=== PATIENT | female | born 1970 | race American Indian/Alaskan Native ===

== ENCOUNTER 2018-12-28 14:52 | Inpatient (IN) | payer OTHER ==
--- NOTE | 2018-12-28 15:16 | Emergency Department Report ---
Blank Doc - Documentation Documentation: This is a 48-year-old female that presents with chest pain and SOB. This initial assessment/diagnostic orders/clinical plan/treatment(s) is/are subject to change based on patient's health status, clinical progression and re- assessment by fellow clinical providers in the ED. Further treatment and workup at subsequent clinical providers discretion. Patient/guardians urged not to elope from the ED as their condition may be serious if not clinically assessed and managed. Initial orders include: 1- Patient sent to [facility] for further evaluation and treatment 2- labs 3- EKG 4- CXR
[2018-12-28 16:28] LABS: Basophils # (Auto) 0.1 K/mm3 (0.0-0.1); Basophils % (Auto) 1.1 % (0.0-1.8); Eosinophils # (Auto) 0.3 K/mm3 (0.0-0.4); Eosinophils % (Auto) 3.2 % (0.0-4.3); Hematocrit 42.7 % (30.3-42.9); Hemoglobin 14.3 gm/dl (10.1-14.3); Lymphocytes # (Auto) 1.9 K/mm3 (1.2-5.4); Lymphocytes % (Auto) 22.5 % (13.4-35.0); Mean Corpuscular HGB Conc 34 % (30-34); Mean Corpuscular Volume 90 fl (79-97); Monocytes # (Auto) 0.6 K/mm3 (0.0-0.8); Monocytes % (Auto) 6.6 % (0.0-7.3); Platelet Count 251 K/mm3 (140-440); Red Blood Count 4.72 M/mm3 (3.65-5.03); Red Cell Distribution Width 13.9 % (13.2-15.2)
[2018-12-28 16:40] LABS: INR 0.84 (0.87-1.13)
[2018-12-28 16:52] LABS: BUN/Creatinine Ratio 15; Blood Urea Nitrogen 12 mg/dL (7-17); Hemolysis Index 25
--- NOTE | 2018-12-28 17:21 | XRay Report ---
PROCEDURE: XR CHEST ROUTINE 2V TECHNIQUE: PA and lateral chest HISTORY: Chest Pain COMPARISONS: Chest x-ray July 10, 2018 FINDINGS: Trachea midline. Heart size normal No pneumothorax. No sizable effusion. No acute airspace disease No acute bony abnormality IMPRESSION: No active pulmonary disease. This document is electronically signed by Rafal Daniel MD., Dec 28 2018 05:18:44 PM ET
--- NOTE | 2018-12-28 17:26 | Emergency Department Report ---
ED Chest Pain HPI - General Chief Complaint: Chest Pain Stated Complaint: CHEST PAIN Time Seen by Provider: 12/28/18 15:15 Source: patient Mode of arrival: Ambulatory Limitations: No Limitations - History of Present Illness Initial Comments: She is a 48-year-old female that presents with complaints of chest pain which started 15 minutes prior to arrival. Patient states that she also had shortness of breath and dyspnea on exertion. Patient states she's had a history of PACs and PVCs as well as CHF. Patient states she sees cardiology and electrophy siology. Patient states her shortness of breath has resolved. Patient states shortness breath is better with rest and worse with exertion. Patient states her chest pain as a 7 out of 10. Patient states her chest pain is in the center of her chest and nonradiating. Patient states her chest pain is better with rest and worse with exertion. MD Complaint: chest pain -: Sudden Onset: during rest Pain Location: substernal Pain Radiation: none Severity: moderate, severe Severity scale (0 -10): 7 Quality: heaviness, pressure Consistency: constant Improves With: rest Worsens With: exertion re: dyspnea. denies: nausea, vomting, diaphoresis, sense of impending doom Other Symptoms: denies: cough, fever, syncope, rash, acid taste in mouth, leg swelling, palpitations, burping Treatments Prior to Arrival: none Aspirin use within the Past 7 Days: (1) Yes - Related Data On Oral Contraceptives: No Home Medications Medication Instructions Recorded Confirmed Last Taken Atenolol [Tenormin] 25 mg PO DAILY 12/28/18 12/28/18 Unknown Cholecalciferol (Vitamin D3) 50,000 unit PO QWEEK 12/28/18 12/28/18 Unknown [Decara 50,000 unit] Montelukast [Singulair] 10 mg PO DAILY 12/28/18 12/28/18 Unknown Potassium Chloride [K-Dur] 20 meq PO DAILY 12/28/18 12/28/18 Unknown busPIRone [Buspar] 10 mg PO BID 12/28/18 12/28/18 Unknown Previous Rx's Medication Instructions Recorded Last Taken Type ALBUTEROL Inhaler(NF) [VENTOLIN 1 puff IH Q4HR PRN #1 inha 07/10/18 Unknown Rx Inhaler(NF)] Allergies Allergy/AdvReac Type Severity Reaction Status Date / Time bee venom protein (honey bee) Allergy Shortness Verified 07/10/18 16:39 of Breath iv contrast Allergy Hives Uncoded 07/10/18 16:36 Heart Score - HEART Score History: Slightly suspicious EKG: Non-specific Age: 45-65 Risk factors: No known risk factors Troponin: < normal limit HEART Score: 2 ED Review of Systems ROS: Stated complaint: CHEST PAIN Other details as noted in HPI Constitutional: denies: chills, fever Eyes: denies: eye pain, eye discharge, vision change ENT: denies: ear pain, throat pain Respiratory: shortness of breath, SOB with exertion, SOB at rest. denies: cough, wheezing Cardiovascular: chest pain, palpitations Endocrine: no symptoms reported Gastrointestinal: denies: abdominal pain, nausea, diarrhea Genitourinary: denies: urgency, dysuria, discharge Musculoskeletal: denies: back pain, joint swelling, arthralgia Skin: denies: rash, lesions Neurological: denies: headache, weakness, paresthesias Psychiatric: denies: anxiety, depression Hematological/Lymphatic: denies: easy bleeding, easy bruising ED Past Medical Hx - Past Medical History Previous Medical History?: Yes Hx Hypertension: Yes Hx Congestive Heart Failure: Yes Hx Asthma: Yes Additional medical history: Autoimmune disorder - Surgical History Past Surgical History?: Yes Additional Surgical History: tubal ligation. endometrial ablasion - Social History Smoking Status: Never Smoker Substance Use Type: Alcohol - Medications Home Medications: Home Medications Medication Instructions Recorded Confirmed Last Taken Type ALBUTEROL Inhaler(NF) [VENTOLIN 1 puff IH Q4HR PRN #1 inha 07/10/18 12/28/18 Unknown Rx Inhaler(NF)] Atenolol [Tenormin] 25 mg PO DAILY 12/28/18 12/28/18 Unknown History Cholecalciferol (Vitamin D3) 50,000 unit PO QWEEK 12/28/18 12/28/18 Unknown History [Decara 50,000 unit] Montelukast [Singulair] 10 mg PO DAILY 12/28/18 12/28/18 Unknown History Potassium Chloride [K-Dur] 20 meq PO DAILY 12/28/18 12/28/18 Unknown History busPIRone [Buspar] 10 mg PO BID 12/28/18 12/28/18 Unknown History ED Physical Exam - General Limitations: No Limitations General appearance: alert, in no apparent distress - Head Head exam: Present: atraumatic, normocephalic - Eye Eye exam: Present: normal appearance, PERRL Pupils: Present: normal accommodation - ENT ENT exam: Present: mucous membranes moist - Neck Neck exam: Present: normal inspection - Respiratory Respiratory exam: Present: normal lung sounds bilaterally. Absent: respiratory distress, wheezes, rales, chest wall tenderness - Cardiovascular Cardiovascular Exam: Present: regular rate, normal rhythm. Absent: systolic murmur, diastolic murmur, rubs, gallop - GI/Abdominal GI/Abdominal exam: Present: soft, normal bowel sounds - Rectal Rectal exam: Present: deferred - Extremities Exam Extremities exam: Present: normal inspection - Back Exam Back exam: Present: normal inspection - Neurological Exam Neurological exam: Present: alert, oriented X3 - Psychiatric Psychiatric exam: Present: normal affect, normal mood - Skin Skin exam: Present: warm, dry, intact, normal color. Absent: rash ED Course Vital Signs 12/28/18 12/28/18 12/28/18 15:16 17:16 17:30 Temperature 97.8 F Pulse Rate 81 54 L 52 L Respiratory 20 14 Rate Blood Pressure 126/80 126/57 Blood Pressure [Left] O2 Sat by Pulse 95 95 Oximetry 12/28/18 12/28/18 12/28/18 17:45 18:00 18:17 Temperature Pulse Rate 54 L 51 L 48 L Respiratory 13 12 12 Rate Blood Pressure 123/81 123/81 Blood Pressure [Left] O2 Sat by Pulse 97 96 98 Oximetry 12/28/18 12/28/18 12/28/18 18:30 18:45 19:00 Temperature Pulse Rate 50 L 51 L 49 L Respiratory 12 11 L 13 Rate Blood Pressure 132/78 138/88 129/68 Blood Pressure [Left] O2 Sat by Pulse 98 97 97 Oximetry 12/28/18 12/28/18 12/28/18 19:15 19:30 19:41 Temperature 98.3 F Pulse Rate 53 L 48 L 65 Respiratory 14 13 25 H Rate Blood Pressure 121/73 122/77 122/77 Blood Pressure 140/92 [Left] O2 Sat by Pulse 98 96 100 Oximetry 12/28/18 12/28/18 12/28/18 19:51 20:00 20:11 Temperature Pulse Rate 57 L 59 L 56 L Respiratory 17 18 16 Rate Blood Pressure 140/92 137/95 137/95 Blood Pressure [Left] O2 Sat by Pulse 99 97 97 Oximetry 12/28/18 12/28/18 20:23 20:27 Temperature Pulse Rate 54 L Respiratory Rate Blood Pressure 134/73 134/77 Blood Pressure [Left] O2 Sat by Pulse Oximetry - Reevaluation(s) Reevaluation #1: Discussed all result of patient. Discussed plan of care with patient. Patient admitted to the hospitalist service. 12/28/18 17:33 - Consultations Consultation #1: Hospitalist consulted for admission. Hospitalist to admit patient. Hospitalist to assume care patient. 12/28/18 17:33 GRAHAM score - Graham Score Age > 65: (0) No Aspirin use within the Past 7 Days: (1) Yes 3 or more CAD Risk Factors: (0) No 2 or more Angina events in past 24 hrs: (0) No Known CAD with more than 50% Stenosis: (0) No Elevated Cardiac Markers: (0) No ST Deviation Greater than 0.5mm: (0) No GRAHAM Score: 1 ED Medical Decision Making - Lab Data Result diagrams: 12/28/18 15:56 12/28/18 15:56 - EKG Data -: EKG Interpreted by Me EKG shows normal: sinus rhythm, axis, intervals, QRS complexes, ST-T waves Rate: normal - Radiology Data Radiology results: report reviewed, image reviewed interpreted by me: Negative chest PROCEDURE: XR CHEST ROUTINE 2V TECHNIQUE: PA and lateral chest HISTORY: Chest Pain COMPARISONS: Chest x-ray July 10, 2018 FINDINGS: Trachea midline. Heart size normal No pneumothorax. No sizable effusion. No acute airspace disease No acute bony abnormality IMPRESSION: No active pulmonary disease. - Medical Decision Making Patient is a 48-year-old female that presents emergency room with chest pain shortness of breath. Patient initial cardiac workup negative. Chest x-ray negative. Patient will be admitted to the hospitalist service for further evaluation and treatment and rule out ACS. Patient will most likely require a cardiology consult - Differential Diagnosis ACS. CP. sob,. hale. chf Critical care attestation.: If time is entered above; I have spent that time in minutes in the direct care of this critically ill patient, excluding procedure time. ED Disposition Clinical Impression: SOB (shortness of breath), HALE (dyspnea on exertion), Heart palpitations Chest pain Qualifiers: Chest pain type: unspecified Qualified Code(s): R07.9 - Chest pain, unspecified Disposition: 09 OP ADMIT IP TO THIS HOSP Is pt being admited?: Yes Does the pt Need Aspirin: No Condition: Fair Time of Disposition: 17:35
--- NOTE | 2018-12-28 17:33 | History and Physical Report ---
History of Present Illness Chief complaint: My chest hurts History of present illness: 48 YO Female with SLE/Sjogrens Syndrome/Fibromyalgia, Obesity, Asthma, CHF, Cardiac Arrythmias(PAC/PVC) presents to ED for evaluation. Pt states that she has experienced chest pain and shortness of breath over the past 2 days with w orsening symptoms over the past 1 day. Pt states that her pain is 7/10, substernal, constant, worsened with exertion, relieved with rest, crushing in nature, nonradiating, associated with shortness of breath. Pt acknowledges decreased exercise tolerance, dypsnea on exertion, as well as leg swelling. Pt transported to [facility] via private vehicle. Pt seen and evaluated in ED and found to have Angina, as well as symptoms consistent with Diastolic CHF. Pt admitted to telemetry. Cardiology team consulted in ED. Past History Past Medical History: arrhythmia, heart failure, other (Obesity, Asthma) Past Surgical History: Other (Tubal ligation) Social history: single. denies: smoking, alcohol abuse, prescription drug abuse Family history: hypertension Medications and Allergies Allergies Allergy/AdvReac Type Severity Reaction Status Date / Time bee venom protein (honey bee) Allergy Shortness Verified 07/10/18 16:39 of Breath iv contrast Allergy Hives Uncoded 07/10/18 16:36 Home Medications Medication Instructions Recorded Confirmed Last Taken Type ALBUTEROL Inhaler(NF) [VENTOLIN 1 puff IH Q4HR PRN #1 inha 07/10/18 12/28/18 Unknown Rx Inhaler(NF)] Atenolol [Tenormin] 25 mg PO DAILY 12/28/18 12/28/18 Unknown History Cholecalciferol (Vitamin D3) 50,000 unit PO QWEEK 12/28/18 12/28/18 Unknown History [Decara 50,000 unit] Montelukast [Singulair] 10 mg PO DAILY 12/28/18 12/28/18 Unknown History Potassium Chloride [K-Dur] 20 meq PO DAILY 12/28/18 12/28/18 Unknown History busPIRone [Buspar] 10 mg PO BID 12/28/18 12/28/18 Unknown History Review of Systems Constitutional: no weight loss, no weight gain, no fever, no chills Ears, nose, mouth and throat: no ear pain, no ear discharge, no tinnitis, no decreased hearing, no nose pain Breasts: no change in shape, no swelling, no mass Cardiovascular: chest pain, edema, shortness of breath, dyspnea on exertion, decreased exercise tolerance, no orthopnea, no paroxysmal nocturnal dyspnea Respiratory: no cough, no cough with sputum, no excessive sputum, no hemoptysis Gastrointestinal: no nausea, no vomiting, no diarrhea, no constipation Genitourinary Female: no pelvic pain, no flank pain, no menorrhagia, no dysuria, no urinary frequency, no urgency Rectal: no pain, no incontinence, no bleeding Musculoskeletal: no neck stiffness, no neck pain, no shooting arm pain, no arm numbness/tingling, no low back pain Integumentary: no rash, no pruritis, no redness, no sores, no wounds Neurological: no transient paralysis, no paralysis, no weakness, no parathesias, no numbness, no tingling, no seizures Psychiatric: no anxiety, no memory loss, no change in sleep habits, no sleep disturbances, no insomnia, no hypersomnia, no change in appetite Endocrine: no cold intolerance, no polyphagia, no excessive thirst Hematologic/Lymphatic: no easy bruising, no easy bleeding, no lymphadenopathy, no lymphedema Allergic/Immunologic: no urticaria, no allergic rhinitis, no wheezing, no persistent infections, no angioedema Exam - Constitutional Vitals: Temp Pulse Resp BP Pulse Ox 97.8 F 81 20 126/80 95 12/28/18 15:16 12/28/18 15:16 12/28/18 15:16 12/28/18 15:16 12/28/18 15:16 General appearance: Present: mild distress - EENT Eyes: Present: PERRL ENT: hearing intact, clear oral mucosa - Neck Neck: Present: supple, normal ROM - Respiratory Respiratory effort: normal Respiratory: bilateral: CTA - Cardiovascular Heart Sounds: Present: S1 & S2. Absent: rub, click - Extremities Extremities: pulses symmetrical Extremity abnormal: edema Peripheral Pulses: within normal limits - Abdominal General gastrointestinal: Present: soft, non-tender, non-distended, normal bowel sounds Female genitourinary: Present: normal - Integumentary Integumentary: Present: clear, warm, dry - Musculoskeletal Musculoskeletal: gait normal, strength equal bilaterally - Psychiatric Psychiatric: appropriate mood/affect, intact judgment & insight - Neurologic Neurologic: CNII-XII intact, moves all extremities Results - Labs CBC & Chem 7: 12/28/18 15:56 12/28/18 15:56 Labs: Abnormal lab results 12/28/18 12/28/18 Range/Units 15:56 15:56 PT 12.0 L (12.2-14.9) Sec. INR 0.84 L (0.87-1.13) Glucose 105 H (65-100) mg/dL Assessment and Plan - Patient Problems (1) CHF (congestive heart failure) Current Visit: Yes Status: Suspected Qualifiers: Heart failure type: diastolic Heart failure chronicity: acute Qualified Code(s): I50.31 - Acute diastolic (congestive) heart failure Plan to address problem: CHF Protocol: Admit to telemetry, BNP, Strict I/O, daily weight, monitor uop q shift, chest x ray, cardiology consulted in ED, Echo, supplemental oxygen, afterload reduction, blood pressure control. (2) Angina at rest Current Visit: Yes Status: Acute Plan to address problem: Admit to telemetry: serial cardiac enzymes, ekg, telemetry, stress test, cardiology consulted in ED (3) Obesity hypoventilation syndrome Current Visit: Yes Status: Acute Plan to address problem: supplemental oxygen, NIPPV as clinically indicated, increased physical activity at discharge, balanced diet, CTA chest, D dimer (4) Autoimmune disease Current Visit: Yes Status: Acute Plan to address problem: Restart plaquenil, outpatient rheumatology F/U care. (5) DVT prophylaxis Current Visit: Yes Status: Acute
[2018-12-28] MEDS ORDERED: BABY ASPIRIN PO STA (17:51)
[2018-12-28] MEDS ORDERED: NITROSTAT SL PRN (17:51)
[2018-12-28] MEDS ORDERED: SODIUM CHLORIDE FLUSH SYRINGE 10 ML IV PRN ×2 (17:51)
[2018-12-28] MEDS ORDERED: ZOFRAN IV PRN (17:51)
[2018-12-28] MEDS ORDERED: TYLENOL PO PRN (17:51)
[2018-12-28] MEDS ORDERED: PROVENTIL IH PRN (17:51)
[2018-12-28] MEDS ORDERED: TESSALON PERLES PO PRN (17:55)
[2018-12-28] MEDS ORDERED: MORPHINE ONE (18:36)
[2018-12-28] MEDS ORDERED: ZOFRAN ONE (18:36)
[2018-12-28] MEDS: MORPHINE IV PRN (18:40)
[2018-12-28 19:06] LABS: Chol/HDL Ratio 4.04 %; Free T4 (Free Thyroxine) 0.97 ng/dL (0.76-1.46)
[2018-12-28] MEDS ORDERED: BABY ASPIRIN ONE (19:12)
[2018-12-28] MEDS ORDERED: NITROSTAT SL ONE (20:26)
[2018-12-28] MEDS: SODIUM CHLORIDE FLUSH SYRINGE 10 ML IV SCH (22:31)
[2018-12-28] MEDS: PEPCID PO SCH (22:31)
[2018-12-28] MEDS: BUSPAR PO SCH (22:31)
[2018-12-28] MEDS: PLAQUENIL PO SCH (22:31)
[2018-12-28] MEDS ORDERED: BENADRYL PO NR (23:45)
[2018-12-28] MEDS ORDERED: DELTASONE PO ONE (23:51)
[2018-12-29] MEDS: AMBIEN PO PRN ×2 (01:00→21:46)
[2018-12-29] MEDS ORDERED: PEPCID PO NR (06:00)
[2018-12-29] MEDS ORDERED: BENADRYL PO NR (07:00)
[2018-12-29] MEDS ORDERED: DELTASONE PO ONE ×2 (07:00→13:00)
[2018-12-29] MEDS ORDERED: PEPCID PO ONE ×2 (07:00→13:00)
[2018-12-29 07:04] LABS: Amphetamine Screen,Urine PRESUMPTIVE NEGATIVE; Benzodiazepines Screen,Urine PRESUMPTIVE NEGATIVE; Methadone Screen,Urine PRESUMPTIVE NEGATIVE
[2018-12-29 07:29] LABS: Cannabinoid Screen,Urine PRESUMPTIVE POSITIVE; Cocaine Screen,Urine PRESUMPTIVE POSITIVE; Opiate Screen,Urine PRESUMPTIVE POSITIVE
[2018-12-29] MEDS ORDERED: LEXISCAN IV ONE ×2 (09:57→10:04)
[2018-12-29] MEDS ORDERED: DELTASONE PO SCH ×2 (10:00→14:37)
[2018-12-29] MEDS ORDERED: VITAMIN D2 PO SCH (10:00)
[2018-12-29] MEDS: PEPCID PO SCH ×2 (10:00→21:46)
[2018-12-29] MEDS ORDERED: K-DUR PO SCH ×2 (10:00→14:00)
[2018-12-29] MEDS ORDERED: BENADRYL PO ONE (13:00)
--- NOTE | 2018-12-29 13:02 | Consultation ---
History of Present Illness Consult date: 12/29/18 Consult reason: chest pain History of present illness: The patient is a 48-year-old woman admitted with chest pain and shortness of breath. Chest pain is poorly characterized, nonexertional with no associated symptoms. On admission, ECG was normal sinus rhythm, normal ECG. Cardiac isoenzymes were negative. Today, patient underwent an exercise thallium stress test ordered by the medical service. She exercised for 6 minutes of Mann protocol, completing stage II and achieved 7 METS. There was no chest pain, no ST changes, and thallium perfusion images were normal. Past History Past Medical History: arrhythmia, other (Obesity, Asthma) Past Surgical History: Other (Tubal ligation) Social history: single. denies: smoking, alcohol abuse, prescription drug abuse Family history: hypertension Medications and Allergies Allergies Allergy/AdvReac Type Severity Reaction Status Date / Time bee venom protein (honey bee) Allergy Shortness Verified 07/10/18 16:39 of Breath iv contrast Allergy Hives Uncoded 07/10/18 16:36 Home Medications Medication Instructions Recorded Confirmed Last Taken Type ALBUTEROL Inhaler(NF) [VENTOLIN 1 puff IH Q4HR PRN #1 inha 07/10/18 12/28/18 Unknown Rx Inhaler(NF)] Atenolol [Tenormin] 25 mg PO DAILY 12/28/18 12/28/18 Unknown History Cholecalciferol (Vitamin D3) 50,000 unit PO QWEEK 12/28/18 12/28/18 Unknown History [Decara 50,000 unit] Montelukast [Singulair] 10 mg PO DAILY 12/28/18 12/28/18 Unknown History Potassium Chloride [K-Dur] 20 meq PO DAILY 12/28/18 12/28/18 Unknown History busPIRone [Buspar] 10 mg PO BID 12/28/18 12/28/18 Unknown History Active Meds: Active Medications Acetaminophen (Tylenol) 650 mg PO Q4H PRN PRN Reason: Pain MILD(1-3)/Fever >100.5/WILLETT Albuterol (Proventil) 2.5 mg IH Q4HRT PRN PRN Reason: Shortness Of Breath Atorvastatin Calcium (Lipitor) 40 mg PO QHS ROMMEL Last Admin: 12/28/18 22:31 Dose: 40 mg Documented by: Benzonatate (Tessalon Perles) 100 mg PO Q8HR PRN PRN Reason: Cough Buspirone HCl (Buspar) 10 mg PO BID [facility] Last Admin: 12/28/18 22:31 Dose: 10 mg Documented by: Diphenhydramine HCl (Benadryl) 50 mg PO ONCE ONE Stop: 12/29/18 13:01 Famotidine (Pepcid) 20 mg PO BID [facility] Last Admin: 12/28/18 22:31 Dose: 20 mg Documented by: Famotidine (Pepcid) 20 mg PO ONCE ONE Stop: 12/29/18 13:01 Hydroxychloroquine Sulfate (Plaquenil) 200 mg PO QDAY [facility] Last Admin: 12/28/18 22:31 Dose: 200 mg Documented by: Miscellaneous Medication (Cholecalciferol (Vitamin D3) [Decara 50,000 Unit]) 50,000 unit PO QWEEK [facility] Montelukast Sodium (Singulair) 10 mg PO DAILY [facility] Morphine Sulfate (Morphine) 2 mg IV Q4H PRN PRN Reason: Pain, Moderate (4-6) Last Admin: 12/28/18 18:40 Dose: 2 mg Documented by: Nitroglycerin (Nitrostat) 0.4 mg SL Q5M PRN PRN Reason: Chest Pain Last Admin: 12/28/18 20:27 Dose: 0.4 mg Documented by: Ondansetron HCl (Zofran) 4 mg IV Q8H PRN PRN Reason: Nausea And Vomiting Last Admin: 12/28/18 18:40 Dose: 4 mg Documented by: Potassium Chloride (K-Dur) 20 meq PO DAILY [facility] Prednisone (Deltasone) 50 mg PO DAILY [facility] Prednisone (Deltasone) 50 mg PO ONCE ONE Stop: 12/29/18 13:01 Sodium Chloride (Sodium Chloride Flush Syringe 10 Ml) 10 ml IV BID [facility] Last Admin: 12/28/18 22:31 Dose: 10 ml Documented by: Sodium Chloride (Sodium Chloride Flush Syringe 10 Ml) 10 ml IV PRN PRN PRN Reason: LINE FLUSH Zolpidem Tartrate (Ambien) 5 mg PO QHS PRN PRN Reason: Sleep Last Admin: 12/29/18 01:00 Dose: 5 mg Documented by: Review of Systems Cardiovascular: chest pain, shortness of breath, no orthopnea, no palpitations, no rapid/irregular heart beat, no edema, no syncope, no lightheadedness Physical Examination Vital Signs Temp Pulse Resp BP Pulse Ox 97.8 F 81 20 126/80 95 12/28/18 15:16 12/28/18 15:16 12/28/18 15:16 12/28/18 15:16 12/28/18 15:16 General appearance: no acute distress HEENT: Positive: PERRL Neck: Positive: neck supple Cardiac: Positive: Reg Rate and Rhythm Lungs: Positive: clear to auscultation Neuro: Positive: Grossly Intact Abdomen: Positive: Soft Female genitourinary: deferred Skin: Positive: Clear Extremities: Absent: edema Results 12/28/18 15:56 12/28/18 15:56 Coagulation 12/28/18 Range/Units 15:56 PT 12.0 L (12.2-14.9) Sec. INR 0.84 L (0.87-1.13) APTT 28.0 (24.2-36.6) Sec. Lipids 12/28/18 Range/Units 18:13 Triglycerides 232 H (2-149) mg/dL Cholesterol 198 (50-199) mg/dL HDL Cholesterol 49 (40-59) mg/dL Cholesterol/HDL Ratio 4.04 % CBC 12/28/18 Range/Units 15:56 WBC 8.6 (4.5-11.0) K/mm3 RBC 4.72 (3.65-5.03) M/mm3 Hgb 14.3 (10.1-14.3) gm/dl Hct 42.7 (30.3-42.9) % Plt Count 251 (140-440) K/mm3 Lymph # 1.9 (1.2-5.4) K/mm3 [place] # 0.6 (0.0-0.8) K/mm3 Eos # 0.3 (0.0-0.4) K/mm3 Baso # 0.1 (0.0-0.1) K/mm3 Comprehensive Metabolic Panel 12/28/18 Range/Units 15:56 Sodium 141 (137-145) mmol/L Potassium 4.9 (3.6-5.0) mmol/L Chloride 106.3 (98-107) mmol/L Carbon Dioxide 24 (22-30) mmol/L BUN 12 (7-17) mg/dL Creatinine 0.8 (0.7-1.2) mg/dL Glucose 105 H (65-100) mg/dL Calcium 9.0 (8.4-10.2) mg/dL EKG interpretations - Telemetry EKG Rhythm: Sinus Rhythm Assessment and Plan - Patient Problems (1) Atypical chest pain Current Visit: Yes Status: Acute Plan to address problem: Chest pain is atypical, serial ECGs and normal, cardiac enzymes and normal, and exercise thallium stress test is normal. No further cardiac ischemic workup is indicated.
[2018-12-29] MEDS: BUSPAR PO SCH ×2 (14:00→21:46)
[2018-12-29] MEDS: PLAQUENIL PO SCH (14:00)
[2018-12-29] MEDS: SINGULAIR PO SCH (14:00)
[2018-12-29] MEDS: SODIUM CHLORIDE FLUSH SYRINGE 10 ML IV SCH ×2 (14:00→21:47)
--- NOTE | 2018-12-29 14:35 | Progress Note ---
Assessment and Plan Assessment and plan: 48 YO Female with SLE/Sjogrens Syndrome/Fibromyalgia, Obesity, Asthma, CHF, Cardiac Arrythmias(PAC/PVC) presents to ED for evaluation. Pt states that she has experienced chest pain and shortness of breath over the past 2 days with worsening symptoms over the past 1 day. Pt states that her pain is 7/10, s ubsternal, constant, worsened with exertion, relieved with rest, crushing in nature, nonradiating, associated with shortness of breath. Pt acknowledges decreased exercise tolerance, dypsnea on exertion, as well as leg swelling. Pt transported to [facility] via private vehicle. Pt seen and evaluated in ED and found to have Angina, as well as symptoms consistent with Diastolic CHF. Pt admitted to telemetry. Cardiology team consulted in ED. Patient underwent a stress test which showed no evidence of reversible disease thallium perfusion images were read as normal. Patient is still pending CTA and ultrasound Doppler. Echocardiogram shows an EF of 60-65%. - Patient Problems Atypical chest pain likely secondary to underlying COPD Shortness of breath likely secondary to underlying COPD Stable congestive heart failure-presumed diastolic Obesity Substance abuse Dyslipidemia Autoimmune disease Plan of care Stress test revealed normal as noted above Patient still with underlying and intermittent chest discomfort we'll await CTA and Doppler of lower extremity Counseling provided to the patient the need to refrain from substance abuse she verbalizes understanding Continue otherwise current management plan Continue nebulizer treatments and steroid treatment and taper . Anticipated discharge in a.m. Continue plaquenil being taken at home and continue follow-up with sewer tapper. DVT and GI prophylaxis History Interval history: Patient seen and Examined This Morning in No Acute Distress Going for Stress Test Today Also Still Pending a CTA to Rule Out Pulmonary Embolism and Also Doppler of Lower Extremities.. Hospitalist Physical - Physical exam Narrative exam: VITAL SIGNS: Reviewed. GENERAL: The patient appeared well nourished and normally developed, Vital signs as documented. HEAD: No signs of head trauma. EYES: Pupils are equal. Extraocular motions intact. EARS: Hearing grossly intact. MOUTH: Oropharynx is normal. NECK: No adenopathy, no JVD. CHEST: Chest with clear breath sounds bilaterally. No wheezes, rales, or rhonchi. CARDIAC: Regular rate and rhythm. S1 and S2, without murmurs, gallops, or rubs. VASCULAR: No Edema. Peripheral pulses normal and equal in all extremities. ABDOMEN: Soft, non tender and non distended. No rebound or guarding, and no masses palpated. Bowel Sounds normal. MUSCULOSKELETAL: Good range of motion of all major joints. Extremities without clubbing, cyanosis or edema. NEUROLOGIC EXAM: Alert and oriented x 3 No focal sensory or strength deficits. Speech normal. Follows commands. PSYCHIATRIC: Mood normal. SKIN: No rash or lesions. - Constitutional Vitals: Temp Pulse Resp BP Pulse Ox 97.8 F 62 18 125/69 93 12/29/18 12:48 12/29/18 12:48 12/29/18 12:48 12/29/18 12:48 12/29/18 12:48 General appearance: Present: no acute distress Results - Labs CBC & Chem 7: 12/28/18 15:56 12/28/18 15:56 Labs: Laboratory Last Values WBC 8.6 K/mm3 (4.5-11.0) 12/28/18 15:56 RBC 4.72 M/mm3 (3.65-5.03) 12/28/18 15:56 Hgb 14.3 gm/dl (10.1-14.3) 12/28/18 15:56 Hct 42.7 % (30.3-42.9) 12/28/18 15:56 MCV 90 fl (79-97) 12/28/18 15:56 MCH 30 pg (28-32) 12/28/18 15:56 MCHC 34 % (30-34) 12/28/18 15:56 RDW 13.9 % (13.2-15.2) 12/28/18 15:56 Plt Count 251 K/mm3 (140-440) 12/28/18 15:56 Lymph % (Auto) 22.5 % (13.4-35.0) 12/28/18 15:56 Tillman % (Auto) 6.6 % (0.0-7.3) 12/28/18 15:56 Eos % (Auto) 3.2 % (0.0-4.3) 12/28/18 15:56 Baso % (Auto) 1.1 % (0.0-1.8) 12/28/18 15:56 Lymph # 1.9 K/mm3 (1.2-5.4) 12/28/18 15:56 Tillman # 0.6 K/mm3 (0.0-0.8) 12/28/18 15:56 Eos # 0.3 K/mm3 (0.0-0.4) 12/28/18 15:56 Baso # 0.1 K/mm3 (0.0-0.1) 12/28/18 15:56 Seg Neutrophils % 66.6 % (40.0-70.0) 12/28/18 15:56 Seg Neutrophils # 5.8 K/mm3 (1.8-7.7) 12/28/18 15:56 PT 12.0 Sec. (12.2-14.9) L 12/28/18 15:56 INR 0.84 (0.87-1.13) L 12/28/18 15:56 APTT 28.0 Sec. (24.2-36.6) 12/28/18 15:56 D-Dimer 304.73 ng/mlDDU (0-234) H 12/28/18 15:56 Sodium 141 mmol/L (137-145) 12/28/18 15:56 Potassium 4.9 mmol/L (3.6-5.0) 12/28/18 15:56 Chloride 106.3 mmol/L (98-107) 12/28/18 15:56 Carbon Dioxide 24 mmol/L (22-30) 12/28/18 15:56 Anion Gap 16 mmol/L 12/28/18 15:56 BUN 12 mg/dL (7-17) 12/28/18 15:56 Creatinine 0.8 mg/dL (0.7-1.2) 12/28/18 15:56 Estimated GFR > 60 ml/min 12/28/18 15:56 BUN/Creatinine Ratio 15 % 12/28/18 15:56 Glucose 105 mg/dL (65-100) H 12/28/18 15:56 Calcium 9.0 mg/dL (8.4-10.2) 12/28/18 15:56 Troponin T < 0.010 ng/mL (0.00-0.029) 12/28/18 23:34 NT-Pro-B Natriuret Pep 52.49 pg/mL (0-450) 12/28/18 15:56 Triglycerides 232 mg/dL (2-149) H 12/28/18 18:13 Cholesterol 198 mg/dL (50-199) 12/28/18 18:13 LDL Cholesterol Direct 133 mg/dL (50-130) H 12/28/18 18:13 HDL Cholesterol 49 mg/dL (40-59) 12/28/18 18:13 Cholesterol/HDL Ratio 4.04 % 12/28/18 18:13 TSH 1.260 mlU/mL (0.270-4.200) 12/28/18 18:13 Free T4 0.97 ng/dL (0.76-1.46) 12/28/18 18:13 HCG, Qual Negative (Negative) 12/28/18 15:56 Urine Opiates Screen Presumptive positive 12/29/18 Unknown Urine Methadone Screen Presumptive negative 12/29/18 Unknown Ur Barbiturates Screen Presumptive negative 12/29/18 Unknown Ur Phencyclidine Scrn Presumptive negative 12/29/18 Unknown Ur Amphetamines Screen Presumptive negative 12/29/18 Unknown U Benzodiazepines Scrn Presumptive negative 12/29/18 Unknown Urine Cocaine Screen Presumptive positive 12/29/18 Unknown U Marijuana (THC) Screen Presumptive positive 12/29/18 Unknown Drugs of Abuse Note Disclamer 12/29/18 Unknown Active Medications - Current Medications Current Medications: Generic Name Dose Route Start Last Admin Trade Name Freq PRN Reason Stop Dose Admin Acetaminophen 650 mg 12/28/18 17:51 Tylenol PO Q4H PRN Pain MILD(1-3)/Fever >100.5/WILLETT Albuterol 2.5 mg 12/28/18 17:51 Proventil IH Q4HRT PRN Shortness Of Breath Atorvastatin Calcium 40 mg 12/28/18 22:00 12/28/18 22:31 Lipitor PO 40 mg QHS ROMMEL Administration Benzonatate 100 mg 12/28/18 17:55 Tessalon Perles PO Q8HR PRN Cough Buspirone HCl 10 mg 12/28/18 22:00 12/29/18 14:00 Buspar PO 10 mg BID ROMMEL Administration Famotidine 20 mg 12/28/18 22:00 12/28/18 22:31 Pepcid PO 20 mg BID ROMMEL Administration Hydroxychloroquine Sulfate 200 mg 12/28/18 19:33 12/29/18 14:00 Plaquenil PO 200 mg QDAY ROMMEL Administration Miscellaneous Medication 50,000 unit 01/04/19 10:00 Cholecalciferol (Vitamin D3) [Decara 50,000 Unit] PO QWEEK ROMMEL Montelukast Sodium 10 mg 12/29/18 10:00 12/29/18 14:00 Singulair PO 10 mg DAILY ROMMEL Administration Morphine Sulfate 2 mg 12/28/18 17:51 12/28/18 18:40 Morphine IV 2 mg Q4H PRN Administration Pain, Moderate (4-6) Nitroglycerin 0.4 mg 12/28/18 17:51 12/28/18 20:27 Nitrostat SL 0.4 mg Q5M PRN Administration Chest Pain Ondansetron HCl 4 mg 12/28/18 17:51 12/28/18 18:40 Zofran IV 4 mg Q8H PRN Administration Nausea And Vomiting Potassium Chloride 20 meq 12/29/18 14:00 K-Dur PO DAILY ROMMEL Prednisone 50 mg 12/29/18 10:00 Deltasone PO DAILY ROMMEL Sodium Chloride 10 ml 12/28/18 22:00 12/29/18 14:00 Sodium Chloride Flush Syringe 10 Ml IV 10 ml BID ROMMEL Administration Sodium Chloride 10 ml 12/28/18 17:51 Sodium Chloride Flush Syringe 10 Ml IV PRN PRN LINE FLUSH Zolpidem Tartrate 5 mg 12/28/18 23:31 12/29/18 01:00 Ambien PO 5 mg QHS PRN Administration Sleep
--- NOTE | 2018-12-29 16:47 | Cat Scan Report ---
PROCEDURE: CT angiogram chest with contrast. TECHNIQUE: Computerized tomographic angiography of the chest was performed after the IV injection of iodinated nonionic contrast including image processing. The image data was postprocessed using 2-di mensional multiplanar reformatted (MPR) and 3-dimensional (MIP and/or volume rendered) techniques. Au tomated exposure control, adjustment of mA and/or kV according to patient size, or iterative reconstr uction dose optimization techniques were utilized. CT DOSE LENGTH PRODUCT: 618.5 mGycm HISTORY: Dyspnea. COMPARISONS: None. FINDINGS: The trachea and central bronchi appear normal. The lungs are clear and well expanded. There are no si gns of pneumonia. There are no pleural effusions. The thoracic aorta has a normal caliber without zak dence of dissection. The pulmonary arteries enhance normally. There is no evidence of pulmonary embol ism. There is no mediastinal adenopathy. The heart size is normal. The thoracic skeleton appears inta ct. There is a focal mass in the medial segment of the left lobe of the liver. This has fairly low at tenuation and measures 1.6 cm in diameter. It may represent a benign lesion such as a cavernous heman gioma. The exact etiology is uncertain. An ultrasound study would be a simple means of further evalua tion. The adrenal glands are not enlarged. IMPRESSION: Normal study of the chest. Small focal mass in the left lobe of the liver. This document is electronically signed by Jin Peña MD., Dec 29 2018 04:45:42 PM ET
[2018-12-29] MEDS: MORPHINE IV PRN (16:55)
[2018-12-29] MEDS ORDERED: DUONEB *Not for PRN Use IH SCH (20:00)
--- NOTE | 2018-12-29 22:14 | Vascular Lab Report ---
PROCEDURE: US BILATERAL LOWER EXTREMITY VENOUS DUPLEX DOPPLER TECHNIQUE: Duplex Doppler ultrasound of the BILATERAL common and superficial femoral, popliteal, pos terior tibial and proximal deep femoral and greater saphenous veins was attempted. Joaquin scale imaging with and without compression, spectral waveform analysis with and without augmentation, and color fl ow Doppler were employed. CPT 56729 HISTORY: Pain and swelling COMPARISONS: None . FINDINGS: RIGHT LOWER EXTREMITY: Deep Venous Thrombus: None . Superficial Venous Thrombus: None . Venous valvular incompetence: None . Soft tissue abnormality: None . Other: None . LEFT LOWER EXTREMITY: Deep Venous Thrombus: None . Superficial Venous Thrombus: None . Venous valvular incompetence: None . Soft tissue abnormality: None . Other: None . IMPRESSION: No evidence of deep venous thrombosis . This document is electronically signed by Khari Dillon MD., Dec 29 2018 10:12:09 PM ET
--- NOTE | 2018-12-30 02:27 | Treadmill Report ---
THALLIUM STRESS TEST LEFT VENTRICLE: The left ventricular chamber size is within normal spread. Perfusion study demonstrates homogeneous uptake of the tracer in all segments, no significant defects identified. Gated analysis demonstrates normal left ventricular systolic function, ejection fraction greater than 70%. CONCLUSION: Normal myocardial perfusion study. JOB# [id number] CA/NTS
[2018-12-30] MEDS: DUONEB *Not for PRN Use IH SCH ×2 (07:25→13:48)
[2018-12-30 07:47] VITALS: BP 110/69
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
--- NOTE | 2018-12-30 09:11 | Progress Note ---
Assessment and Plan - Patient Problems (1) Atypical chest pain Current Visit: Yes Status: Acute Plan to address problem: Chest pain is atypical serial ECGs and normal cardiac enzymes normal exercise thallium stress test is normal normal LVEF by echocardiogram No further cardiac ischemic workup is indicated. Stable cardiac rai for discharge. Patient advised to follow up with her primary bar host at [facility], Dr Brock, within 5-7 days of discharge. Subjective Date of service: 12/30/18 Interval history: Patient is resting in bed comfortably. She denies chest pain and shortness of breath. Objective Vital Signs Temp Pulse Pulse Resp Resp BP Pulse Ox 12/30/18 07:41 97.7 F 18 110/69 12/30/18 04:00 65 96 12/30/18 03:44 98.2 F 12 104/61 12/29/18 23:03 98.3 F 75 12 115/55 94 12/29/18 21:00 97 H 20 12/29/18 20:51 96 12/29/18 20:50 91 H 20 12/29/18 20:14 75 12/29/18 19:13 97.1 F L 67 16 139/69 97 12/29/18 18:15 98 12/29/18 17:23 18 12/29/18 16:55 18 12/29/18 16:28 97.6 F 67 18 123/71 97 12/29/18 12:48 97.8 F 62 18 125/69 93 12/29/18 11:07 135/86 12/29/18 11:05 141/88 12/29/18 11:04 138/87 12/29/18 11:02 150/89 12/29/18 11:01 138/93 12/29/18 10:51 120/79 12/29/18 10:07 123/82 12/29/18 10:00 119/72 - Physical Examination General: No Apparent Distress HEENT: Positive: PERRL Neck: Positive: neck supple Cardiac: Positive: Reg Rate and Rhythm Lungs: Positive: Decreased Breath Sounds Neuro: Positive: Grossly Intact Extremities: Absent: edema
[2018-12-30] MEDS: BUSPAR PO SCH (09:29)
[2018-12-30] MEDS: SINGULAIR PO SCH (09:29)
[2018-12-30] MEDS: PEPCID PO SCH (09:30)
[2018-12-30] MEDS: PLAQUENIL PO SCH (09:30)
[2018-12-30] MEDS: SODIUM CHLORIDE FLUSH SYRINGE 10 ML IV SCH (09:34)
== END 2018-12-30 14:46 | disposition home or self-care (01) | DRG 291 ==
LOC: ED 14:52 → 4A 17:51
PROVIDERS: ADMIT Internal Medicine; ATTEND Internal Medicine
DX: I11.0 Hypertensive heart disease with heart failure (principal); I50.31 Acute diastolic (congestive) heart failure; J44.9 Chronic obstructive pulmonary disease, unspecified; E66.2 Morbid (severe) obesity with alveolar hypoventilation; E78.5 Hyperlipidemia, unspecified; R16.0 Hepatomegaly, not elsewhere classified; I20.8 Other forms of angina pectoris; Z68.33 Body mass index [BMI] 33.0-33.9, adult; Z82.49 Family history of ischemic heart disease and other diseases of the circulatory system; Z98.51 Tubal ligation status; Z91.030 Bee allergy status; Z91.041 Radiographic dye allergy status; Z79.51 Long term (current) use of inhaled steroids; Z79.899 Other long term (current) drug therapy
CPT/HCPCS: 36415; 71046; 71275; 78452; 80048; 80061; 80307; 83880; 84439; 84443; 84484; 84703; 85025; 85379; 85610; 85730; 93005; 93010; 93017; 93306; 93970; 94640; 96374; 99285; G0378; A9270-GY; A9502; J2270; J2405; J2785; J7512; Q9967

== ENCOUNTER 2019-04-27 22:35 | Inpatient (IN) | payer OTHER ==
[2019-04-27] MEDS ORDERED: DUONEB *Not for PRN Use IH ONE (22:37)
[2019-04-27] MEDS ORDERED: SOLU-Medrol IM ONE (22:38)
[2019-04-27] MEDS ORDERED: TYLENOL/CODEINE PO ONE (22:38)
--- NOTE | 2019-04-27 22:40 | Event Note ---
ED Screening Note Date of service: 04/27/19 Time: 22:38 ED Screening Note: 48 y o presents with uncontrollable coughing and some res p distress This initial assessment/diagnostic orders/clinical plan/treatment(s) is/are subject to change based on patients health status, clinical progression and re- assessment by fellow clinical providers in the ED. Further treatment and workup at subsequent clinical providers discretion. Patient/guardian urged not to elope from the ED as their condition may be serious if not clinically assessed and managed. Initial orders include: xr duoneb solu codeine/ty
[2019-04-27] MEDS ORDERED: SOLU-Medrol IV ONE (22:47)
[2019-04-27] MEDS ORDERED: PROVENTIL IH ONE ×3 (22:48→22:53)
[2019-04-27] MEDS ORDERED: ATROVENT IH ONE ×2 (22:50→22:53)
[2019-04-27] MEDS ORDERED: BRETHINE SUB-Q ONE (22:59)
[2019-04-27] MEDS ORDERED: MAGNESIUM SULFATE 2GM/50ML 2 GM/50 ML BAG IV ONE (22:59)
[2019-04-27 23:30] LABS: Basophils # (Auto) 0.1 K/mm3 (0.0-0.1); Basophils % (Auto) 1.1 % (0.0-1.8); Eosinophils # (Auto) 0.4 K/mm3 (0.0-0.4); Eosinophils % (Auto) 3.3 % (0.0-4.3); Hematocrit 39.1 % (30.3-42.9); Hemoglobin 13.1 gm/dl (10.1-14.3); Lymphocytes # (Auto) 3.3 K/mm3 (1.2-5.4); Lymphocytes % (Auto) 29.7 % (13.4-35.0); Mean Corpuscular HGB Conc 34 % (30-34); Mean Corpuscular Volume 89 fl (79-97); Monocytes # (Auto) 0.8 K/mm3 (0.0-0.8); Monocytes % (Auto) 7.5 % (0.0-7.3); Platelet Count 232 K/mm3 (140-440); Red Cell Distribution Width 13.6 % (13.2-15.2)
[2019-04-27 23:48] LABS: BUN/Creatinine Ratio 13; Blood Urea Nitrogen 12 mg/dL (7-17); Calcium 8.6 mg/dL (8.4-10.2); Hemolysis Index 22
--- NOTE | 2019-04-28 01:16 | XRay Report ---
CHEST 2 VIEWS INDICATION: cough. COMPARISON: 12/28/2018. FINDINGS: Support devices: None. Heart: Within normal limits. Lungs/Pleura: No acute air space or interstitial disease. No significant pleural effusion. IMPRESSION: No acute findings. Signer Name: Neil Benoit MD Signed: 04/28/2019 1:12 AM Workstation Name: [id number]
[2019-04-28] MEDS ORDERED: MORPHINE IV ONE (01:19)
--- NOTE | 2019-04-28 01:27 | Emergency Department Report ---
ED Shortness of Breath HPI - General Chief Complaint: Dyspnea/Respdistress Stated Complaint: CHANDA Time Seen by Provider: 04/27/19 22:37 Source: patient Mode of arrival: Ambulatory Limitations: No Limitations - History of Present Illness Initial Comments: Patient is a 48-year-old [female who has a past history of asthma and lupus who is here complaining of shortness of breath. Patient's had a wheezing cough for the past week which is unrelieved with home bronchodilators. Patient denies fever. Patient states cough is wet however she is not ringing up large amounts of sputum. The patient states she does have some pain in the chest with cough. She denies nausea vomiting diarrhea sore throat or neck stiffness. Patient does have bilateral edema to the ankles. - Related Data Home Medications Medication Instructions Recorded Confirmed Last Taken Atenolol [Tenormin] 25 mg PO DAILY 12/28/18 04/28/19 Unknown busPIRone [Buspar] 10 mg PO BID 12/28/18 04/28/19 Unknown Previous Rx's Medication Instructions Recorded Last Taken Type ALBUTEROL Inhaler(NF) [VENTOLIN 1 puff IH Q4HR PRN #1 inha 07/10/18 Unknown Rx Inhaler(NF)] Aspirin [Aspirin BABY CHEW TAB] 81 mg PO QDAY #30 tab.chew 12/30/18 Unknown Rx Hydroxychloroquine [Plaquenil] 200 mg PO QDAY 30 Days tablet 12/30/18 Unknown Rx Prednisone [predniSONE 10 mg 10 mg PO .TAPER #1 tab.ds.pk 12/30/18 Unknown Rx (6-Day Pack, 21 Tabs)] Allergies Allergy/AdvReac Type Severity Reaction Status Date / Time bee venom protein (honey bee) Allergy Shortness Verified 07/10/18 16:39 of Breath iv contrast Allergy Hives Uncoded 07/10/18 16:36 ED Review of Systems ROS: Stated complaint: CHANDA Other details as noted in HPI Comment: All other systems reviewed and negative ED Past Medical Hx - Past Medical History Hx Hypertension: Yes Hx Congestive Heart Failure: Yes Hx Asthma: Yes Additional medical history: Autoimmune disorder - Surgical History Additional Surgical History: tubal ligation. endometrial ablasion - Social History Smoking Status: Never Smoker Substance Use Type: Alcohol - Medications Home Medications: Home Medications Medication Instructions Recorded Confirmed Last Taken Type ALBUTEROL Inhaler(NF) [VENTOLIN 1 puff IH Q4HR PRN #1 inha 07/10/18 04/28/19 Unknown Rx Inhaler(NF)] Atenolol [Tenormin] 25 mg PO DAILY 12/28/18 04/28/19 Unknown History busPIRone [Buspar] 10 mg PO BID 12/28/18 04/28/19 Unknown History Aspirin [Aspirin BABY CHEW TAB] 81 mg PO QDAY #30 tab.chew 12/30/18 04/28/19 Unknown Rx Hydroxychloroquine [Plaquenil] 200 mg PO QDAY 30 Days tablet 12/30/18 04/28/19 Unknown Rx Prednisone [predniSONE 10 mg 10 mg PO .TAPER #1 tab.ds.pk 12/30/18 04/28/19 Unk nown Rx (6-Day Pack, 21 Tabs)] ED Physical Exam - General Limitations: No Limitations General appearance: alert, anxious, in distress - Head Head exam: Present: atraumatic, normocephalic - Eye Eye exam: Present: normal appearance, PERRL, EOMI - ENT ENT exam: Present: normal orophraynx, mucous membranes moist - Neck Neck exam: Present: normal inspection - Respiratory Respiratory exam: Present: respiratory distress, wheezes, chest wall tenderness. Absent: normal lung sounds bilaterally, rales, rhonchi, stridor - Cardiovascular Cardiovascular Exam: Present: regular rate, normal rhythm, normal heart sounds. Absent: systolic murmur, diastolic murmur, rubs, gallop - GI/Abdominal GI/Abdominal exam: Present: soft, normal bowel sounds. Absent: distended, tenderness, guarding, rebound - Extremities Exam Extremities exam: Present: normal inspection, joint swelling (bilateral ankles. Swelling is mild.) - Back Exam Back exam: Present: normal inspection - Neurological Exam Neurological exam: Present: alert, oriented X3 - Psychiatric Psychiatric exam: Present: normal affect, normal mood - Skin Skin exam: Present: warm, dry, intact, normal color. Absent: rash ED Course Vital Signs 04/27/19 04/27/19 04/27/19 22:49 23:01 23:03 Pulse Rate Pulse Rate [ 86 Bilateral] Respiratory 26 H Rate [Bilateral ] Blood Pressure 149/80 O2 Sat by Pulse 97 97 Oximetry 04/27/19 04/27/19 04/27/19 23:15 23:30 23:45 Pulse Rate Pulse Rate [ Bilateral] Respiratory Rate [Bilateral ] Blood Pressure 137/96 161/68 149/80 O2 Sat by Pulse 97 96 96 Oximetry 04/28/19 04/28/19 04/28/19 00:00 00:15 00:29 Pulse Rate 81 Pulse Rate [ Bilateral] Respiratory Rate [Bilateral ] Blood Pressure 141/68 141/68 O2 Sat by Pulse 98 99 Oximetry ED Medical Decision Making - Lab Data Result diagrams: 04/27/19 23:05 04/27/19 23:05 - Radiology Data Chest x-ray is within normal limits - Medical Decision Making Patient is a 48-year-old Female is presenting with wheezing cough. Patient received an hour-long every last treatment as well as magnesium slightly Medrol and terbutaline. Patient still wheezing after breathing treatment is still complaining of chest tightness. Patient's O2 sats at its lowest was 92%. Patient is placed on 2 L of oxygen will be admitted to the hospitalist service at this time. Critical care attestation.: If time is entered above; I have spent that time in minutes in the direct care of this critically ill patient, excluding procedure time. ED Disposition Clinical Impression: Acute asthma exacerbation Qualifiers: Asthma severity: moderate Asthma persistence: persistent Qualified Code(s): J45.41 - Moderate persistent asthma with (acute) exacerbation Disposition: OP ADMIT IP TO THIS HOSP Is pt being admited?: Yes Does the pt Need Aspirin: No Condition: Stable Time of Disposition: 01:27
[2019-04-28] MEDS ORDERED: SODIUM CHLORIDE FLUSH SYRINGE 10 ML IV PRN (02:56)
[2019-04-28] MEDS ORDERED: TYLENOL PO PRN (02:56)
[2019-04-28] MEDS ORDERED: D50W (25GM) Syringe IV PRN (03:03)
[2019-04-28] MEDS ORDERED: PERCOCET 5/325 PO PRN (03:04)
--- NOTE | 2019-04-28 03:07 | History and Physical Report ---
History of Present Illness Date of examination: 04/28/19 Date of admission: 04/28/2019 Chief complaint: CHANDA History of present illness: 48-year-old female with history of lupus, fibromyalgia, asthma, hypertension, CHF with normal LVEF on echo, obesity, and arrhythmia (PAC & PVC) who presents to [facility] ED with complaints of cough, wheezing, and difficulty breathing for the past 2 days. Patient states that his usual state of health until Saturday 04/21 when she started sneezing and coughing. She went to her PCP and was noted to be in a Lupus flare, and was given oral steroid taper. Over the past 2 days her symptoms have gotten worse. Her is more frequent and that she was wheezing. She also complains of chest soreness related to frequent cough and audible whe ezing is noted. She has bilateral lower extremity nonpitting edema from her lupus flare. Last night patient had an asthma attack. She tried nebulizer treatments with no relief. She decided to come to the ED for further evaluation. Denies: n/v/d, fever, WILLETT, hemoptysis, discolored sputum production, or recent sick contact Past History Past Medical History: diabetes, heart failure (EF 60-65% ), hypertension, other (Lupus, Asthma, Obesity, Fibromyalgia, Arrythmias (PAC& PVC)) Past Surgical History: Other ( endometrial ablasion, tubal ligation) Social history: denies: smoking Family history: no significant family history Medications and Allergies Allergies Allergy/AdvReac Type Severity Reaction Status Date / Time bee venom protein (honey bee) Allergy Shortness Verified 07/10/18 16:39 of Breath iv contrast Allergy Hives Uncoded 07/10/18 16:36 Home Medications Medication Instructions Recorded Confirmed Last Taken Type ALBUTEROL Inhaler(NF) [VENTOLIN 1 puff IH Q4HR PRN #1 inha 07/10/18 04/28/19 Unknown Rx Inhaler(NF)] Atenolol [Tenormin] 25 mg PO DAILY 12/28/18 04/28/19 Unknown History busPIRone [Buspar] 10 mg PO BID 12/28/18 04/28/19 Unknown History Aspirin [Aspirin BABY CHEW TAB] 81 mg PO QDAY #30 tab.chew 12/30/18 04/28/19 Unknown Rx Hydroxychloroquine [Plaquenil] 200 mg PO QDAY 30 Days tablet 12/30/18 04/28/19 Unknown Rx Prednisone [predniSONE 10 mg 10 mg PO .TAPER #1 tab.ds.pk 12/30/18 04/28/19 Unknown Rx (6-Day Pack, 21 Tabs)] Active Meds: Active Medications Acetaminophen (Tylenol) 650 mg PO Q4H PRN PRN Reason: Pain MILD(1-3)/Fever >100.5/WILLETT Albuterol/Ipratropium (Duoneb *Not For Prn Use*) 1 ampul IH Q6HRT [facility] Aspirin (Baby Aspirin) 81 mg PO QDAY [facility] Atenolol (Tenormin) 25 mg PO DAILY [facility] Budesonide (Pulmicort) 0.5 mg IH Q12HRT [facility] Buspirone HCl (Buspar) 10 mg PO BID [facility] Docusate Sodium (Colace) 100 mg PO BID [facility] Enoxaparin Sodium (Lovenox) 40 mg SUB-Q QDAY [facility] Guaifenesin (Mucinex Er) 600 mg PO BID [facility] Hydroxychloroquine Sulfate (Plaquenil) 200 mg PO QDAY [facility] Methylprednisolone Sodium Succinate (Solu-Medrol) 80 mg IV Q8HR [facility] Ondansetron HCl (Zofran) 4 mg IV Q8H PRN PRN Reason: Nausea And Vomiting Sodium Chloride (Sodium Chloride Flush Syringe 10 Ml) 10 ml IV BID [facility] Sodium Chloride (Sodium Chloride Flush Syringe 10 Ml) 10 ml IV PRN PRN PRN Reason: LINE FLUSH Review of Systems All systems: negative Cardiovascular: chest pain (sorness from coughing), edema (r/t lupus flare) Respiratory: cough, shortness of breath, dyspnea on exertion, congestion, wheezing Exam - Physical Exam Narrative exam: Physical exam General appearance: Present: Mild discomfort, alert and oriented 3, middle-age adult female - EENT Eyes: Present: PERRL, EOM intact ENT: hearing intact, normal dentition - Neck Neck: Present: supple, normal ROM - Respiratory Respiratory effort: Non-labored, frequent dry nonproductive cough Respiratory: Wheezing throughout with poor air movement - Cardiovascular Heart rate: 81 (bpm) Rhythm: SR Heart Sounds: Present: S1 & S2. Absent: rub, click - Extremities Extremities: no ischemia, pulses intact, abnormal (bilateral lower extremity edema related to lupus flare) - Peripheral Assessment Peripheral Pulses: within normal limits - Abdominal General gastrointestinal: soft, non-tender, normal bowel sounds - Integumentary Integumentary: Present: warm, dry - Musculoskeletal Musculoskeletal: Able to move all extremities -Neurological Neurological: CN II-XII grossly intact - Psychiatric Psychiatric: cooperative - Constitutional Vitals: Temp Pulse Resp BP Pulse Ox 81 26 H 141/68 99 04/28/19 00:29 04/27/19 23:03 04/28/19 00:15 04/28/19 00:15 Results - Labs CBC & Chem 7: 04/27/19 23:05 04/27/19 23:05 Labs: Laboratory Last Values WBC 11.0 K/mm3 (4.5-11.0) 04/27/19 23:05 RBC 4.40 M/mm3 (3.65-5.03) 04/27/19 23:05 Hgb 13.1 gm/dl (10.1-14.3) 04/27/19 23:05 Hct 39.1 % (30.3-42.9) 04/27/19 23:05 MCV 89 fl (79-97) 04/27/19 23:05 MCH 30 pg (28-32) 04/27/19 23:05 MCHC 34 % (30-34) 04/27/19 23:05 RDW 13.6 % (13.2-15.2) 04/27/19 23:05 Plt Count 232 K/mm3 (140-440) 04/27/19 23:05 Lymph % (Auto) 29.7 % (13.4-35.0) 04/27/19 23:05 [place] % (Auto) 7.5 % (0.0-7.3) H 04/27/19 23:05 Eos % (Auto) 3.3 % (0.0-4.3) 04/27/19 23:05 Baso % (Auto) 1.1 % (0.0-1.8) 04/27/19 23:05 Lymph # 3.3 K/mm3 (1.2-5.4) 04/27/19 23:05 [place] # 0.8 K/mm3 (0.0-0.8) 04/27/19 23:05 Eos # 0.4 K/mm3 (0.0-0.4) 04/27/19 23:05 Baso # 0.1 K/mm3 (0.0-0.1) 04/27/19 23:05 Seg Neutrophils % 58.4 % (40.0-70.0) 04/27/19 23:05 Seg Neutrophils # 6.4 K/mm3 (1.8-7.7) 04/27/19 23:05 VBG pH 7.410 (7.320-7.420) 04/27/19 23:05 Sodium 140 mmol/L (137-145) 04/27/19 23:05 Potassium 3.7 mmol/L (3.6-5.0) 04/27/19 23:05 Chloride 102.9 mmol/L (98-107) 04/27/19 23:05 Carbon Dioxide 22 mmol/L (22-30) 04/27/19 23:05 19 mmol/L 04/27/19 23:05 BUN 12 mg/dL (7-17) 04/27/19 23:05 0.9 mg/dL (0.7-1.2) 04/27/19 23:05 Estimated GFR > 60 ml/min 04/27/19 23:05 13 % 04/27/19 23:05 Glucose 101 mg/dL (65-100) H 04/27/19 23:05 Calcium 8.6 mg/dL (8.4-10.2) 04/27/19 23:05 - Imaging and Cardiology Imaging and Cardiology: CXR: FINDINGS: Support devices: None. Heart: Within normal limits. Lungs/Pleura: No acute air space or interstitial disease. No significant pleural effusion. IMPRESSION: No acute findings. Assessment and Plan Assessment and plan: 48-year-old female with history of lupus, fibromyalgia, asthma, hypertension, CHF with normal LVEF on echo, obesity, and arrhythmia (PAC & PVC) who presents to [facility] ED with complaints of cough, wheezing, and difficulty breathing for the past 2 days. Acute exacerbation asthma -Scheduled DuoNebs and Pulmicort, Albuterol prn -Systemic steriods -Mucinex Acute Hypoxic Respiratory Failure -CXR negative -No baseline oxygen requirements -On supplemental O2 -VBG 7.410 -Monitor saturations wean as tolerated Hypertension -Continue to monitor BP -Resume Home antihypertensive meds to optimize BP -IV antihypertensive when necessary CHF -Normal LVEF 60%-65% on Echo (12/2018) -Normal thallium stress test on 12/29/18 Obesity -May benefit from lifestyle and diet modifications -May benefit from outpatient weight management program History of arrhythmias (PAC and PVC) -Continuos telemetry monitoring Lupus Flare -Continue Plaquenil -On systemic steriods -Continue supportive care Hx fibromyalgia DVT PPX -on Lovenox Advance Directives: No VTE prophylaxis?: Chemical Plan of care discussed with patient/family: Yes
[2019-04-28] MEDS ORDERED: APRESOLINE IV PRN (03:16)
[2019-04-28] MEDS ORDERED: DUONEB *Not for PRN Use IH ONE (03:51)
[2019-04-28] MEDS ORDERED: SOLU-Medrol IV SCH ×2 (06:00)
[2019-04-28] MEDS: TESSALON PERLES PO SCH ×3 (06:04→21:11)
[2019-04-28] MEDS: PERCOCET 5/325 PO PRN ×3 (06:12→21:13)
[2019-04-28] MEDS ORDERED: HumaLOG SUB-Q SCH (07:30)
[2019-04-28] MEDS ORDERED: DUONEB *Not for PRN Use IH SCH (08:00)
[2019-04-28] MEDS: PULMICORT IH SCH ×2 (08:14→19:37)
[2019-04-28 08:29] LABS: Amphetamine Screen,Urine PRESUMPTIVE NEGATIVE; Benzodiazepines Screen,Urine PRESUMPTIVE NEGATIVE; Cocaine Screen,Urine PRESUMPTIVE NEGATIVE; Methadone Screen,Urine PRESUMPTIVE NEGATIVE
[2019-04-28 08:47] LABS: Cannabinoid Screen,Urine PRESUMPTIVE NEGATIVE; Opiate Screen,Urine PRESUMPTIVE POSITIVE
[2019-04-28] MEDS: PLAQUENIL PO SCH (11:00)
[2019-04-28] MEDS: LOVENOX SUB-Q SCH (11:00)
[2019-04-28] MEDS: SODIUM CHLORIDE FLUSH SYRINGE 10 ML IV SCH ×2 (11:00→21:18)
[2019-04-28] MEDS: BABY ASPIRIN PO SCH (11:00)
[2019-04-28] MEDS: COLACE PO SCH ×2 (11:00→21:11)
[2019-04-28] MEDS: BUSPAR PO SCH ×2 (11:00→21:11)
[2019-04-28] MEDS: MUCINEX ER PO SCH ×2 (11:00→21:11)
[2019-04-28] MEDS: TENORMIN PO SCH (11:53)
--- NOTE | 2019-04-28 13:12 | Consultation ---
History of Present Illness Consult date: 04/28/19 Requesting physician: PASQUALE STEPHENS Reason for consult: asthma History of present illness: 48 y/o obese, black female admitted with chest pain and shortness of breath. Similar admission for this at this hospital before. Patient carries a diagnosis of Lupus or Lupus like syndrome. She also has asthma which she is not on any long acting therapy for and does not follow with a malted milk masher. Patient states that she does have a Rheum doc named Mariusz, but she has been referred to Dr. Perez, but she cannot see her until May. She has been on Plaquenil for this. From what I can tell from the history she does have some history of noncompliance with Rheum therapy. Per her this is the worst Lupus flare she has had despite her having a pericardial effusion earlier this year. She is tearful and extremely emotional at this time. Remainder of the review is negative. Past History Past Medical History: diabetes, heart failure (EF 60-65% ), hypertension, other (Lupus, Asthma, Obesity, Fibromyalgia, Arrythmias (PAC& PVC)) Past Surgical History: Other ( endometrial ablasion, tubal ligation) Social history: denies: smoking Family history: no significant family history Medications and Allergies Allergies Allergy/AdvReac Type Severity Reaction Status Date / Time bee venom protein (honey bee) Allergy Shortness Verified 07/10/18 16:39 of Breath iv contrast Allergy Hives Uncoded 07/10/18 16:36 Home Medications Medication Instructions Recorded Confirmed Last Taken Type ALBUTEROL Inhaler(NF) [VENTOLIN 1 puff IH Q4HR PRN #1 inha 07/10/18 04/28/19 Unknown Rx Inhaler(NF)] Atenolol [Tenormin] 25 mg PO DAILY 12/28/18 04/28/19 Unknown History busPIRone [Buspar] 10 mg PO BID 12/28/18 04/28/19 Unknown History Aspirin [Aspirin BABY CHEW TAB] 81 mg PO QDAY #30 tab.chew 12/30/18 04/28/19 U nknown Rx Hydroxychloroquine [Plaquenil] 200 mg PO QDAY 30 Days tablet 12/30/18 04/28/19 Unknown Rx Prednisone [predniSONE 10 mg 10 mg PO .TAPER #1 tab.ds.pk 12/30/18 04/28/19 Unknown Rx (6-Day Pack, 21 Tabs)] Active Meds: Active Medications Acetaminophen (Tylenol) 650 mg PO Q4H PRN PRN Reason: Pain MILD(1-3)/Fever >100.5/WILLETT Albuterol/Ipratropium (Duoneb *Not For Prn Use*) 1 ampul IH Q4HRT [facility] Aspirin (Baby Aspirin) 81 mg PO QDAY [facility] Last Admin: 04/28/19 11:00 Dose: 81 mg Documented by: Atenolol (Tenormin) 25 mg PO DAILY [facility] Last Admin: 04/28/19 11:53 Dose: 25 mg Documented by: Benzonatate (Tessalon Perles) 100 mg PO Q8HR [facility] Last Admin: 04/28/19 06:04 Dose: 100 mg Documented by: Budesonide (Pulmicort) 0.5 mg IH Q12HRT [facility] Last Admin: 04/28/19 08:14 Dose: 0.5 mg Documented by: Buspirone HCl (Buspar) 10 mg PO BID [facility] Last Admin: 04/28/19 11:00 Dose: 10 mg Documented by: Dextrose (D50w (25gm) Syringe) 50 ml IV PRN PRN PRN Reason: Hypoglycemia Docusate Sodium (Colace) 100 mg PO BID [facility] Last Admin: 04/28/19 11:00 Dose: 100 mg Documented by: Enoxaparin Sodium (Lovenox) 40 mg SUB-Q QDAY [facility] Last Admin: 04/28/19 11:00 Dose: 40 mg Documented by: Guaifenesin (Mucinex Er) 600 mg PO BID [facility] Last Admin: 04/28/19 11:00 Dose: 600 mg Documented by: Hydralazine HCl (Apresoline) 10 mg IV Q4HR PRN PRN Reason: Blood Pressure Hydroxychloroquine Sulfate (Plaquenil) 200 mg PO QDAY [facility] Last Admin: 04/28/19 11:00 Dose: 200 mg Documented by: Ondansetron HCl (Zofran) 4 mg IV Q8H PRN PRN Reason: Nausea And Vomiting Oxycodone/Acetaminophen (Percocet 5/325) 2 tab PO Q4H PRN PRN Reason: Pain, Moderate (4-6) Last Admin: 04/28/19 06:12 Dose: 2 tab Documented by: Prednisone (Deltasone) 60 mg PO QDAY [facility] Pseudoephedrine/Acetam/Chlorphenir (Robitussin Ac) 10 ml PO Q4H PRN PRN Reason: Cough Sodium Chloride (Sodium Chloride Flush Syringe 10 Ml) 10 ml IV BID [facility] Last Admin: 04/28/19 11:00 Dose: 10 ml Documented by: Sodium Chloride (Sodium Chloride Flush Syringe 10 Ml) 10 ml IV PRN PRN PRN Reason: LINE FLUSH Review of Systems All systems: negative Physical Examination Vital signs: Vital Signs Pulse Ox 97 04/27/19 22:49 General appearance: no acute distress, alert, appears uncomfortable Eyes: non-icteric ENT: oropharynx moist Neck: supple Effort: normal Ascultation: Bilateral: wheezes Percussion: Bilateral: not dull Tactile fremitus: Bilateral: normal Cardiovascular: other (sinus tach) Gastrointestinal: normoactive bowel sounds, soft, other (obese) Extremities: edema normal mental status anxious, depressed, tearful Results - Laboratory Findings CBC and BMP: 04/27/19 23:05 04/27/19 23:05 Abnormal lab findings: Abnormal Labs 04/27/19 04/27/19 23:05 23:05 [place] % (Auto) 7.5 H Glucose 101 H - Diagnostic Findings Chest x-ray: image reviewed (clear, hyperinflation) Assessment and Plan 48 y/o female with asthma exacerbation and possible acute lupus flare as well. 1. Per patient, she felt better when she was on about 20 of predisone. I think that her mood swings, swelling and elevated bp as well as sugar is related to this. I have stopped the IV solumedrol and placed her on PRed 60 and will taper from there 2. Increased frequency of nebs to q4 round the clock. Patient should be woken up for therapy. 3. Continue BID pulmicort 4. BP control 5. Consider codeine cough syrup. Will continue to follow.
[2019-04-28] MEDS: DUONEB *Not for PRN Use IH SCH ×3 (15:40→23:38)
--- NOTE | 2019-04-28 19:14 | Consultation ---
History of Present Illness - Reason for Consult Consult date: 04/28/19 Co management Requesting physician: PASQUALE STEPHENS - History of Present Illness Thank you for this request. patient is seen/examined, she is my office patient, with hx of SLE, now comming with what appears to be SLE flare up, ,manifesting as more pronounced rash. Loose stools, up to 7x per 24hrs.She is also complaining of resp sxs, and admitted for sxs management/control.I have spoken to the primary team. Rec she start on steroid, and taper off. patient recently had US, revealing wall thickness, was planning on HIDA SCAN. 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 Past History Past Medical History: diabetes, heart failure (EF 60-65% ), hypertension, other (Lupus, Asthma, Obesity, Fibromyalgia, Arrythmias (PAC& PVC)) Past Surgical History: Other ( endometrial ablasion, tubal ligation) Social history: denies: smoking Family history: no significant family history Medications and Allergies Allergies Allergy/AdvReac Type Severity Reaction Status Date / Time bee venom protein (honey bee) Allergy Shortness Verified 07/10/18 16:39 of Breath iv contrast Allergy Hives Uncoded 07/10/18 16:36 Home Medications Medication Instructions Recorded Confirmed Last Taken Type ALBUTEROL Inhaler(NF) [VENTOLIN 1 puff IH Q4HR PRN #1 inha 07/10/18 04/28/19 Unknown Rx Inhaler(NF)] Atenolol [Tenormin] 25 mg PO DAILY 12/28/18 04/28/19 Unknown History busPIRone [Buspar] 10 mg PO BID 12/28/18 04/28/19 Unknown History Aspirin [Aspirin BABY CHEW TAB] 81 mg PO QDAY #30 tab.chew 12/30/18 04/28/19 Unknown Rx Hydroxychloroquine [Plaquenil] 200 mg PO QDAY 30 Days tablet 12/30/18 04/28/19 Unknown Rx Prednisone [predniSONE 10 mg 10 mg PO .TAPER #1 tab.ds.pk 12/30/18 04/28/19 Unknown Rx (6-Day Pack, 21 Tabs)] Active Meds: Active Medications Acetaminophen (Tylenol) 650 mg PO Q4H PRN PRN Reason: Pain MILD(1-3)/Fever >100.5/WILLETT Albuterol/Ipratropium (Duoneb *Not For Prn Use*) 1 ampul IH Q4HRT [facility] Last Admin: 04/28/19 15:40 Dose: 1 ampul Documented by: Aspirin (Baby Aspirin) 81 mg PO QDAY [facility] Last Admin: 04/28/19 11:00 Dose: 81 mg Documented by: Atenolol (Tenormin) 25 mg PO DAILY [facility] Last Admin: 04/28/19 11:53 Dose: 25 mg Documented by: Benzonatate (Tessalon Perles) 100 mg PO Q8HR [facility] Last Admin: 04/28/19 14:24 Dose: 100 mg Documented by: Budesonide (Pulmicort) 0.5 mg IH Q12HRT [facility] Last Admin: 04/28/19 08:14 Dose: 0.5 mg Documented by: Buspirone HCl (Buspar) 10 mg PO BID [facility] Last Admin: 04/28/19 11:00 Dose: 10 mg Documented by: Dextrose (D50w (25gm) Syringe) 50 ml IV PRN PRN PRN Reason: Hypoglycemia Docusate Sodium (Colace) 100 mg PO BID [facility] Last Admin: 04/28/19 11:00 Dose: 100 mg Documented by: Enoxaparin Sodium (Lovenox) 40 mg SUB-Q QDAY [facility] Last Admin: 04/28/19 11:00 Dose: 40 mg Documented by: Guaifenesin (Mucinex Er) 600 mg PO BID [facility] Last Admin: 04/28/19 11:00 Dose: 600 mg Documented by: Hydralazine HCl (Apresoline) 10 mg IV Q4HR PRN PRN Reason: Blood Pressure Hydroxychloroquine Sulfate (Plaquenil) 200 mg PO QDAY [facility] Last Admin: 04/28/19 11:00 Dose: 200 mg Documented by: Ondansetron HCl (Zofran) 4 mg IV Q8H PRN PRN Reason: Nausea And Vomiting Oxycodone/Acetaminophen (Percocet 5/325) 2 tab PO Q4H PRN PRN Reason: Pain, Moderate (4-6) Last Admin: 04/28/19 14:25 Dose: 2 tab Documented by: Prednisone (Deltasone) 60 mg PO QDAY [facility] Pseudoephedrine/Acetam/Chlorphenir (Robitussin Ac) 10 ml PO Q4H PRN PRN Reason: Cough Sodium Chloride (Sodium Chloride Flush Syringe 10 Ml) 10 ml IV BID [facility] Last Admin: 04/28/19 11:00 Dose: 10 ml Documented by: Sodium Chloride (Sodium Chloride Flush Syringe 10 Ml) 10 ml IV PRN PRN PRN Reason: LINE FLUSH Zolpidem Tartrate (Ambien) 10 mg PO QHS PRN PRN Reason: Sleep Review of Systems Breasts: deferred Exam - Constitutional Vitals: Temp Pulse Resp BP Pulse Ox 98.8 F 89 20 169/91 99 04/28/19 08:42 04/28/19 15:41 04/28/19 15:41 04/28/19 14:38 04/28/19 14:38 General appearance: Present: mild distress, well-nourished - EENT Eyes: Present: PERRL ENT: hearing intact, clear oral mucosa - Neck Neck: Present: supple, normal ROM - Respiratory Respiratory effort: normal Respiratory: bilateral: CTA - Cardiovascular Heart Sounds: Present: S1 & S2. Absent: rub, click - Extremities Extremities: pulses symmetrical, No edema Peripheral Pulses: within normal limits - Abdominal General gastrointestinal: Present: soft, non-tender, non-distended, normal bowel sounds Female genitourinary: Present: deferred - Rectal Rectal Exam: deferred - Integumentary Integumentary: Present: clear, warm, dry - Musculoskeletal Musculoskeletal: gait normal, strength equal bilaterally - Psychiatric Psychiatric: appropriate mood/affect, intact judgment & insight - Neurologic Neurologic: CNII-XII intact, moves all extremities Results - Labs CBC & Chem 7: 04/27/19 23:05 04/27/19 23:05 Labs: Abnormal lab results 04/27/19 04/27/19 Range/Units 23:05 23:05 [place] % (Auto) 7.5 H (0.0-7.3) % Glucose 101 H (65-100) mg/dL Assessment and Plan - Patient Problems (1) Acute asthma exacerbation Current Visit: Yes Status: Acute Qualifiers: Asthma severity: moderate Asthma persistence: persistent Qualified Code(s): J45.41 - Moderate persistent asthma with (acute) exacerbation Plan to address problem: Follow pulm. (2) Chest pain Current Visit: No Status: Acute Qualifiers: Chest pain type: unspecified Qualified Code(s): R07.9 - Chest pain, unspecified Plan to address problem: Folloe the primary team. (3) Autoimmune disease Current Visit: No Status: Acute Plan to address problem: Continue steriods/plaquinel (4) HALE (dyspnea on exertion) Current Visit: No Status: Acute Plan to address problem: Follow pulm
[2019-04-28] MEDS: AMBIEN PO PRN (21:10)
[2019-04-29] MEDS: DUONEB *Not for PRN Use IH SCH ×5 (04:44→19:55)
[2019-04-29 04:47] LABS: Basophils % (Auto) 0.1 % (0.0-1.8); Eosinophils % (Auto) 0.1 % (0.0-4.3); Hematocrit 35.8 % (30.3-42.9); Hemoglobin 12.1 gm/dl (10.1-14.3); Lymphocytes % (Auto) 11.4 % (13.4-35.0); Mean Corpuscular HGB Conc 34 % (30-34); Mean Corpuscular Volume 91 fl (79-97); Monocytes # (Auto) 1.1 K/mm3 (0.0-0.8); Monocytes % (Auto) 6.4 % (0.0-7.3); Platelet Count 219 K/mm3 (140-440); Red Blood Count 3.96 M/mm3 (3.65-5.03)
[2019-04-29 05:16] LABS: BUN/Creatinine Ratio 11; Blood Urea Nitrogen 8 mg/dL (7-17); Calcium 8.7 mg/dL (8.4-10.2); Hemolysis Index 1
[2019-04-29] MEDS: TESSALON PERLES PO SCH ×3 (05:55→21:51)
[2019-04-29] MEDS: PULMICORT IH SCH ×2 (07:48→19:55)
[2019-04-29] MEDS ORDERED: KINEVAC IV ONE ×2 (10:27→10:28)
--- NOTE | 2019-04-29 11:25 | Nuclear Medicine Report ---
NM HEPATOBILIARY W CCK INDICATION / CLINICAL INFORMATION: Abnormal GB US.. TECHNIQUE: Dose / Agent / Route: 5.5 mCi of technetium 99 Choletec was administered intravenously. 2.1 mcg of Ki nevac was given intravenously later in the exam. COMPARISON: No relevant prior imaging study available. FINDINGS: Normal activity seen in the liver, gallbladder and common bile duct by 30 minutes. Small bowel activi ty is seen after Kinevac injection. Following the injection of Kinevac, the gallbladder ejection frac tion measured 77%. Kinevac reproduced patient's symptoms. IMPRESSION: Normal hepatobiliary scan and gallbladder ejection fraction. Kinevac reproduced the patient's symptom s. Signer Name: Raulito Denny MD FACMu Signed: 04/29/2019 11:21 AM Workstation Name: [email or web address]
[2019-04-29] MEDS: MUCINEX ER PO SCH ×2 (11:29→21:51)
[2019-04-29] MEDS: TENORMIN PO SCH (11:29)
[2019-04-29] MEDS: COLACE PO SCH ×2 (11:29→21:51)
[2019-04-29] MEDS: BABY ASPIRIN PO SCH (11:29)
[2019-04-29] MEDS: DELTASONE PO SCH (11:29)
[2019-04-29] MEDS: BUSPAR PO SCH ×2 (11:29→21:51)
[2019-04-29] MEDS: LOVENOX SUB-Q SCH (11:29)
[2019-04-29] MEDS: SODIUM CHLORIDE FLUSH SYRINGE 10 ML IV SCH ×2 (11:30→21:54)
[2019-04-29] MEDS: PLAQUENIL PO SCH (11:30)
[2019-04-29] MEDS: ROBITUSSIN AC PO PRN ×2 (12:38→20:43)
--- NOTE | 2019-04-29 13:06 | Progress Note ---
Subjective Date of service: 04/29/19 Interval history: No acute events. Dropped steroids down and increased frequency of Neb therapy. Objective Vital Signs - 12hr 04/29/19 04/29/19 04/29/19 04:46 05:17 05:19 Temperature 98.3 F Pulse Rate 74 Pulse Rate [ 84 Bilateral] Respiratory 20 Rate Respiratory 18 Rate [Bilateral ] Blood Pressure 105/60 O2 Sat by Pulse 94 Oximetry 04/29/19 04/29/19 04/29/19 07:37 07:49 07:50 Temperature 98.4 F Pulse Rate 72 Pulse Rate [ 84 Bilateral] Respiratory 16 Rate Respiratory 18 Rate [Bilateral ] Blood Pressure 104/54 O2 Sat by Pulse 97 97 Oximetry 04/29/19 04/29/19 04/29/19 11:00 11:29 11:35 Temperature 97.4 F L Pulse Rate 76 83 Pulse Rate [ 92 H Bilateral] Respiratory 20 18 Rate Respiratory 18 Rate [Bilateral ] Blood Pressure 135/75 O2 Sat by Pulse 96 98 Oximetry Constitutional: no acute distress, alert, appears uncomfortable Eyes: non-icteric ENT: oropharynx moist Neck: supple Effort: normal Ascultation: Bilateral: wheezes Percussion: Bilateral: not dull Tactile fremitus: Bilateral: normal Cardiovascular: other (sinus tach) Gastrointestinal: normoactive bowel sounds, soft, other (obese) Extremities: edema Neurologic: normal mental status Psychiatric: anxious, depressed, tearful CBC and BMP: 04/29/19 04:17 04/29/19 04:17 Abnormal lab findings: Abnormal Labs 04/27/19 04/27/19 04/29/19 23:05 23:05 04:17 WBC 17.7 H Lymph % (Auto) 11.4 L [place] % (Auto) 7.5 H [place] # 1.1 H Seg Neutrophils % 82.0 H Seg Neutrophils # 14.5 H Glucose 101 H 04/29/19 04:17 WBC Lymph % (Auto) [place] % (Auto) [place] # Seg Neutrophils % Seg Neutrophils # Glucose 121 H
--- NOTE | 2019-04-29 13:59 | Progress Note ---
Assessment and Plan - Patient Problems (1) Acute asthma exacerbation Current Visit: Yes Status: Acute Qualifiers: Asthma severity: moderate Asthma persistence: persistent Qualified Code(s): J45.41 - Moderate persistent asthma with (acute) exacerbation Plan to address problem: Follow pulm. (2) Chest pain Current Visit: No Status: Acute Qualifiers: Chest pain type: unspecified Qualified Code(s): R07.9 - Chest pain, unspecified Plan to address problem: Folloe the primary team. (3) Autoimmune disease Current Visit: No Status: Acute Plan to address problem: Continue steriods/plaquinel (4) HALE (dyspnea on exertion) Current Visit: No Status: Acute Plan to address problem: Follow pulm Subjective Date of service: 04/29/19 Principal diagnosis: n/v, ABD pain, Loose stools. Interval history: Patient seen, resting in bed, NM study reviewed, and NL.labs reviewed. Objective - Constitutional Vitals: Vital Signs - 12hr 04/29/19 04/29/19 04/29/19 04:46 05:17 05:19 Temperature 98.3 F Pulse Rate 74 Pulse Rate [ 84 Bilateral] Respiratory 20 Rate Respiratory 18 Rate [Bilateral ] Blood Pressure 105/60 O2 Sat by Pulse 94 Oximetry 04/29/19 04/29/19 04/29/19 07:37 07:49 07:50 Temperature 98.4 F Pulse Rate 72 Pulse Rate [ 84 Bilateral] Respiratory 16 Rate Respiratory 18 Rate [Bilateral ] Blood Pressure 104/54 O2 Sat by Pulse 97 97 Oximetry 04/29/19 04/29/19 04/29/19 11:00 11:29 11:35 Temperature 97.4 F L Pulse Rate 76 83 Pulse Rate [ 92 H Bilateral] Respiratory 20 18 Rate Respiratory 18 Rate [Bilateral ] Blood Pressure 135/75 O2 Sat by Pulse 96 98 Oximetry General appearance: Present: no acute distress, well-nourished - EENT Eyes: PERRL, EOM intact ENT: hearing intact, clear oral mucosa Ears: bilateral: normal - Neck Neck: supple, normal ROM - Respiratory Respiratory effort: normal Respiratory: bilateral: CTA - Breasts Breasts: deferred - Cardiovascular Rhythm: regular Heart Sounds: Present: S1 & S2. Absent: gallop, rub Extremities: pulses intact, No edema, normal color, Full ROM - Gastrointestinal General gastrointestinal: Present: soft, non-tender, non-distended, normal bowel sounds Rectal Exam: deferred - Genitourinary Female genitourinary: deferred - Integumentary Integumentary: clear, warm, dry - Musculoskeletal Musculoskeletal: 1, strength equal bilaterally - Neurologic Neurologic: moves all extremities - Psychiatric Psychiatric: memory intact, appropriate mood/affect, intact judgment & insight - Labs CBC & Chem 7: 04/29/19 04:17 04/29/19 04:17 Labs: Abnormal lab results 04/29/19 04/29/19 Range/Units 04:17 04:17 WBC 17.7 H (4.5-11.0) K/mm3 Lymph % (Auto) 11.4 L (13.4-35.0) % [place] # 1.1 H (0.0-0.8) K/mm3 Seg Neutrophils % 82.0 H (40.0-70.0) % Seg Neutrophils # 14.5 H (1.8-7.7) K/mm3 Glucose 121 H (65-100) mg/dL
[2019-04-29] MEDS: PERCOCET 5/325 PO PRN (14:03)
[2019-04-29] MEDS ORDERED: PROVENTIL IH ONE (16:56)
--- NOTE | 2019-04-29 17:31 | Progress Note ---
Assessment and Plan - Patient Problems (1) Acute asthma exacerbation Current Visit: Yes Status: Acute Qualifiers: Asthma severity: moderate Asthma persistence: persistent Qualified Code(s): J45.41 - Moderate persistent asthma with (acute) exacerbation Plan to address problem: At present her main problem appears to be coughing with asthma exacerbation. Will increase nebulizer treatments continue albuterol nebulizers continue steroids and we are doing. Empiric and a biotics no active cough suppressant. Not improved with Tessalon. (2) Autoimmune disease Current Visit: No Status: Acute Plan to address problem: Also a bruise addition of prednisone. Patient appears be abnormal lupus flare continue supportive medications aggressive hydration and pain control. (3) Chest pain Current Visit: No Status: Resolved Qualifiers: Chest pain type: unspecified Qualified Code(s): R07.9 - Chest pain, unspecified Plan to address problem: chest pain has resolved. Mostly pain now is costochondritic secondary to coughing. (4) Obesity hypoventilation syndrome Current Visit: No Status: Chronic History Interval history: Present patient has significant wheezing inspiratory and expiratory wheezing. Still coughing. Has coughed a lot in my presence at this time. Complains of total body ache. Knees lower extremities. PI PJ joints. Hospitalist Physical - Constitutional Vitals: Temp Pulse Resp BP Pulse Ox 97.4 F L 92 H 18 135/75 98 04/29/19 11:35 04/29/19 15:19 04/29/19 15:19 04/29/19 11:35 04/29/19 11:35 General appearance: Present: mild distress, well-nourished - EENT Eyes: Present: PERRL, EOM intact ENT: hearing intact, clear oral mucosa, hearing decreased, poor dentition, ulcerations - Neck Neck: Present: supple, normal ROM - Respiratory Respiratory: bilateral: diminished, wheezing - Cardiovascular Rhythm: regular - Extremities Extremities: no ischemia, pulses intact, pulses symmetrical, normal temperature, normal color Peripheral Pulses: within normal limits - Abdominal General gastrointestinal: soft, non-tender, non-distended, normal bowel sounds - Integumentary Integumentary: Present: clear, warm, dry, erythema. Absent: jaundice, rash, c lammy - Psychiatric Psychiatric: appropriate mood/affect - Neurologic Neurologic: CNII-XII intact, moves all extremities Results - Labs CBC & Chem 7: 04/29/19 04:17 04/29/19 04:17 Labs: Laboratory Last Values WBC 17.7 K/mm3 (4.5-11.0) H 04/29/19 04:17 RBC 3.96 M/mm3 (3.65-5.03) 04/29/19 04:17 Hgb 12.1 gm/dl (10.1-14.3) 04/29/19 04:17 Hct 35.8 % (30.3-42.9) 04/29/19 04:17 MCV 91 fl (79-97) 04/29/19 04:17 MCH 31 pg (28-32) 04/29/19 04:17 MCHC 34 % (30-34) 04/29/19 04:17 RDW 14.0 % (13.2-15.2) 04/29/19 04:17 Plt Count 219 K/mm3 (140-440) 04/29/19 04:17 Lymph % (Auto) 11.4 % (13.4-35.0) L 04/29/19 04:17 [place] % (Auto) 6.4 % (0.0-7.3) 04/29/19 04:17 Eos % (Auto) 0.1 % (0.0-4.3) 04/29/19 04:17 Baso % (Auto) 0.1 % (0.0-1.8) 04/29/19 04:17 Lymph # 2.0 K/mm3 (1.2-5.4) 04/29/19 04:17 [place] # 1.1 K/mm3 (0.0-0.8) H 04/29/19 04:17 Eos # 0.0 K/mm3 (0.0-0.4) 04/29/19 04:17 Baso # 0.0 K/mm3 (0.0-0.1) 04/29/19 04:17 Seg Neutrophils % 82.0 % (40.0-70.0) H 04/29/19 04:17 Seg Neutrophils # 14.5 K/mm3 (1.8-7.7) H 04/29/19 04:17 VBG pH 7.410 (7.320-7.420) 04/27/19 23:05 Sodium 142 mmol/L (137-145) 04/29/19 04:17 Potassium 4.2 mmol/L (3.6-5.0) 04/29/19 04:17 Chloride 104.6 mmol/L (98-107) 04/29/19 04:17 Carbon Dioxide 23 mmol/L (22-30) 04/29/19 04:17 19 mmol/L 04/29/19 04:17 BUN 8 mg/dL (7-17) 04/29/19 04:17 0.7 mg/dL (0.7-1.2) 04/29/19 04:17 Estimated GFR > 60 ml/min 04/29/19 04:17 11 % 04/29/19 04:17 Glucose 121 mg/dL (65-100) H 04/29/19 04:17 Calcium 8.7 mg/dL (8.4-10.2) 04/29/19 04:17 < 0.010 ng/mL (0.00-0.029) 04/28/19 09:35 Presumptive positive 04/28/19 08:00 Presumptive negative 04/28/19 08:00 Ur Barbiturates Screen Presumptive negative 04/28/19 08:00 Ur Phencyclidine Scrn Presumptive negative 04/28/19 08:00 Ur Amphetamines Screen Presumptive negative 04/28/19 08:00 U Benzodiazepines Scrn Presumptive negative 04/28/19 08:00 Presumptive negative 04/28/19 08:00 U Marijuana (THC) Screen Presumptive negative 04/28/19 08:00 Disclamer 04/28/19 08:00 - Imaging and Cardiology EKG: image reviewed Chest x-ray: image reviewed Active Medications - Current Medications Current Medications: Generic Name Dose Route Start Last Admin Trade Name Freq PRN Reason Stop Dose Admin Acetaminophen 650 mg 04/28/19 02:56 Tylenol PO Q4H PRN Pain MILD(1-3)/Fever >100.5/WILLETT Albuterol/Ipratropium 1 ampul 04/28/19 16:00 04/29/19 17:06 Duoneb *Not For Prn Use* IH 1 ampul Q4HRT ROMMEL Administration Aspirin 81 mg 04/28/19 10:00 04/29/19 11:29 Baby Aspirin PO 81 mg QDAY ROMMEL Administration Atenolol 25 mg 04/28/19 10:00 04/29/19 11:29 Tenormin PO 25 mg DAILY ROMMEL Administration Benzonatate 100 mg 04/28/19 06:00 04/29/19 14:00 Tessalon Perles PO 100 mg Q8HR ROMMEL Administration Budesonide 0.5 mg 04/28/19 08:00 04/29/19 07:48 Pulmicort IH 0.5 mg Q12HRT ROMMEL Administration Buspirone HCl 10 mg 04/28/19 10:00 04/29/19 11:29 Buspar PO 10 mg BID ROMMEL Administration Dextrose 50 ml 04/28/19 03:03 D50w (25gm) Syringe IV PRN PRN Hypoglycemia Docusate Sodium 100 mg 04/28/19 10:00 04/29/19 11:29 Colace PO 100 mg BID ROMMEL Administration Enoxaparin Sodium 40 mg 04/28/19 10:00 04/29/19 11:29 Lovenox SUB-Q 40 mg QDAY ROMMEL Administration Guaifenesin 600 mg 04/28/19 10:00 04/29/19 11:29 Mucinex Er PO 600 mg BID ROMMEL Administration Hydralazine HCl 10 mg 04/28/19 03:16 Apresoline IV Q4HR PRN Blood Pressure Hydroxychloroquine Sulfate 200 mg 04/28/19 10:00 04/29/19 11:30 Plaquenil PO 200 mg QDAY ROMMEL Administration Ondansetron HCl 4 mg 04/28/19 02:56 Zofran IV Q8H PRN Nausea And Vomiting Oxycodone/Acetaminophen 2 tab 04/28/19 04:45 04/29/19 14:03 Percocet 5/325 PO 2 tab Q4H PRN Administration Pain, Moderate (4-6) Prednisone 60 mg 04/29/19 10:00 04/29/19 11:29 Deltasone PO 60 mg QDAY ROMMEL Administration Pseudoephedrine/Acetam/Chlorphenir 10 ml 04/28/19 05:48 04/29/19 12:38 Robitussin Ac PO 10 ml Q4H PRN Administration Cough Sodium Chloride 10 ml 04/28/19 10:00 04/29/19 11:30 Sodium Chloride Flush Syringe 10 Ml IV 10 ml BID ROMMEL Administration Sodium Chloride 10 ml 04/28/19 02:56 Sodium Chloride Flush Syringe 10 Ml IV PRN PRN LINE FLUSH Zolpidem Tartrate 10 mg 04/28/19 17:27 04/28/19 21:10 Ambien PO 10 mg QHS PRN Administration Sleep
[2019-04-29 18:10] LABS: ABG Base Excess -2.4 mmol/L (-2.0-3.0); ABG HCO3 23.5 mmol/L (20.0-26.0); ABG Methemoglobin 0.6 % (0.0-1.5); ABG Oxygen Saturation 99.2 % (95.0-99.0); ABG PH 7.336 pH Units (7.350-7.450); ABG PO2 192.1 mm Hg (80.0-90.0)
[2019-04-29] MEDS: ZOFRAN IV PRN (20:43)
[2019-04-29] MEDS: AMBIEN PO PRN (21:51)
[2019-04-30] MEDS: DUONEB *Not for PRN Use IH SCH ×6 (04:00→20:54)
[2019-04-30] MEDS: PERCOCET 5/325 PO PRN ×2 (04:36→09:41)
[2019-04-30] MEDS: TESSALON PERLES PO SCH ×4 (04:37→21:50)
[2019-04-30] MEDS: PULMICORT IH SCH ×2 (07:52→20:54)
[2019-04-30] MEDS: BUSPAR PO SCH ×2 (09:34→21:50)
[2019-04-30] MEDS: SODIUM CHLORIDE FLUSH SYRINGE 10 ML IV SCH ×2 (09:35→21:51)
[2019-04-30] MEDS: PLAQUENIL PO SCH (09:35)
[2019-04-30] MEDS: ROBITUSSIN AC PO PRN (09:35)
[2019-04-30] MEDS: LOVENOX SUB-Q SCH (09:35)
[2019-04-30] MEDS: MUCINEX ER PO SCH ×2 (09:35→21:50)
[2019-04-30] MEDS: DELTASONE PO SCH (09:35)
[2019-04-30] MEDS: TENORMIN PO SCH (09:35)
[2019-04-30] MEDS: COLACE PO SCH ×2 (09:35→21:50)
[2019-04-30] MEDS: BABY ASPIRIN PO SCH (09:35)
--- NOTE | 2019-04-30 12:04 | Progress Note ---
Assessment and Plan - Patient Problems (1) Acute asthma exacerbation Current Visit: Yes Status: Acute Qualifiers: Asthma severity: moderate Asthma persistence: persistent Qualified Code(s): J45.41 - Moderate persistent asthma with (acute) exacerbation Plan to address problem: Follow pulm. (2) Chest pain Current Visit: No Status: Resolved Qualifiers: Chest pain type: unspecified Qualified Code(s): R07.9 - Chest pain, unspecified Plan to address problem: Folloe the primary team. (3) Autoimmune disease Current Visit: No Status: Chronic Plan to address problem: Continue steroids/plaquinil (4) HALE (dyspnea on exertion) Current Visit: No Status: Acute Plan to address problem: Follow pulm Subjective Date of service: 04/30/19 Principal diagnosis: n/v, ABD pain, Loose stools. Interval history: Patient seen, resting in bed, NM study reviewed, and NL.labs reviewed. Patient seen.examined, resting in bed, c/o still not confortable, as far as her pulm is concerned, is still SOB. The primary team/pulmonary to be called, for ad justment of her pulm care. Objective - Constitutional Vitals: Vital Signs - 12hr 04/30/19 04/30/19 04/30/19 03:50 04:00 07:53 Temperature 97.5 F L Pulse Rate 82 Pulse Rate [ 84 84 Bilateral] Respiratory 19 Rate Respiratory 20 20 Rate [Bilateral ] Blood Pressure 124/74 O2 Sat by Pulse 96 96 Oximetry 04/30/19 04/30/19 08:24 10:47 Temperature 98.2 F Pulse Rate 91 H 73 Pulse Rate [ Bilateral] Respiratory 18 20 Rate Respiratory Rate [Bilateral ] Blood Pressure 174/96 O2 Sat by Pulse 98 96 Oximetry General appearance: Present: mild distress, well-nourished - EENT Eyes: PERRL, EOM intact ENT: hearing intact, clear oral mucosa Ears: bilateral: normal - Neck Neck: supple, normal ROM - Respiratory Respiratory: bilateral: wheezing - Breasts Breasts: deferred - Cardiovascular Rhythm: regular Heart Sounds: Present: S1 & S2. Absent: gallop, rub Extremities: pulses intact, No edema, normal color, Full ROM - Gastrointestinal General gastrointestinal: Present: soft, non-tender, non-distended, normal bowel sounds Rectal Exam: deferred - Genitourinary Female genitourinary: deferred - Integumentary Integumentary: clear, warm, dry - Musculoskeletal Musculoskeletal: 1, strength equal bilaterally - Neurologic Neurologic: moves all extremities - Psychiatric Psychiatric: memory intact, appropriate mood/affect, intact judgment & insight - Labs CBC & Chem 7: 04/29/19 04:17 04/29/19 04:17 Labs: Abnormal lab results 04/29/19 Range/Units 17:20 ABG pH 7.336 L (7.350-7.450) pH Units ABG pO2 192.1 H (80.0-90.0) mm Hg ABG O2 Saturation 99.2 H (95.0-99.0) % ABG Base Excess -2.4 L (-2.0-3.0) mmol/L
--- NOTE | 2019-04-30 13:14 | Progress Note ---
Assessment and Plan 48 y/o female with asthma exacerbation and possible acute lupus flare as well. 1. Her wheezing is mainly upper airway wheezing, I am concerned that she making this sound herself. She is able to speak rapidly and in full sentences without any diffculty. She is very anxious and emotional despite being told that her breathing is stable. She states that she does not want pain medication but her biggest complaint is pain with breathing. The only change that was made between Wednesday and now was a decrease in the steroid so will place back on IV solumedrol 60q6. Continue scheduled nebs [id number]. Patient is not the best historian and at times will not answer questions that are asked of her. If there is an allergic component to this, could try singulair. Spoke with patient and now she states that she is on this at home. Will order now. 2. Increased frequency of nebs to q4 round the clock. Patient should be woken up for therapy. Please continue this. 3. Continue BID pulmicort 4. BP control 5. Agree with trial of ativan therapy. However, now that someone is in the room with her, she is fine eating lunch. Will continue to follow. Subjective Date of service: 04/30/19 Principal diagnosis: n/v, ABD pain, Loose stools. Interval history: Patient states that no tuyere fitter has seen her, which is not true as I saw her on Wednesday. yesterday evening she requested an ABG despite having normal pulse ox and no changes otherwise. ABG done at her requests and was adequate. Did not require any change in therapy. Patient states that she has gotten worse since Wednesday. The only change that has occurred was the drop in steroids, attempting to wean her back to doses that had her lupus under control. Objective Vital Signs - 12hr 04/30/19 04/30/19 04/30/19 03:50 04:00 07:53 Temperature 97.5 F L Pulse Rate 82 Pulse Rate [ 84 84 Bilateral] Respiratory 19 Rate Respiratory 20 20 Rate [Bilateral ] Blood Pressure 124/74 O2 Sat by Pulse 96 96 Oximetry 04/30/19 04/30/19 04/30/19 08:24 10:47 12:00 Temperature 98.2 F Pulse Rate 91 H 73 Pulse Rate [ 88 Bilateral] Respiratory 18 20 Rate Respiratory 19 Rate [Bilateral ] Blood Pressure 174/96 O2 Sat by Pulse 98 96 Oximetry Constitutional: no acute distress, alert, appears uncomfortable Eyes: non-icteric ENT: oropharynx moist Neck: supple Effort: normal Ascultation: Bilateral: wheezes Percussion: Bilateral: not dull Tactile fremitus: Bilateral: normal Cardiovascular: other (sinus tach) Gastrointestinal: normoactive bowel sounds, soft, other (obese) Extremities: edema Neurologic: normal mental status Psychiatric: anxious, depressed, tearful CBC and BMP: 04/29/19 04:17 04/29/19 04:17 ABG, PT/INR, D-dimer: ABG ABG pH 7.336 pH Units (7.350-7.450) L 04/29/19 17:20 ABG pCO2 45.0 mm Hg 04/29/19 17:20 ABG pO2 192.1 mm Hg (80.0-90.0) H 04/29/19 17:20 ABG O2 Saturation 99.2 % (95.0-99.0) H 04/29/19 17:20 Abnormal lab findings: Abnormal Labs 04/27/19 04/27/19 04/29/19 23:05 23:05 04:17 WBC 17.7 H Lymph % (Auto) 11.4 L [place] % (Auto) 7.5 H [place] # 1.1 H Seg Neutrophils % 82.0 H Seg Neutrophils # 14.5 H ABG pH ABG pO2 ABG O2 Saturation ABG Base Excess Glucose 101 H 04/29/19 04/29/19 04:17 17:20 WBC Lymph % (Auto) [place] % (Auto) [place] # Seg Neutrophils % Seg Neutrophils # ABG pH 7.336 L ABG pO2 192.1 H ABG O2 Saturation 99.2 H ABG Base Excess -2.4 L Glucose 121 H
[2019-04-30] MEDS: ATIVAN IV PRN ×2 (14:17→21:50)
[2019-04-30] MEDS: SOLU-Medrol IV SCH ×2 (15:17→21:49)
--- NOTE | 2019-04-30 19:07 | Progress Note ---
Assessment and Plan - Patient Problems (1) Acute asthma exacerbation Current Visit: Yes Status: Acute Qualifiers: Asthma severity: moderate Asthma persistence: persistent Qualified Code(s): J45.41 - Moderate persistent asthma with (acute) exacerbation Plan to address problem: Agent asthma exacerbation is improving. We'll give the patient steroids. We added cough suppressant with Tussionex. Also added Ativan patient did much better with this for her dyspnea. Hopefully home one to 2 days. May be exacerbated by lupus exacerbation. (2) Autoimmune disease Current Visit: No Status: Chronic Plan to address problem: She gives history of lupus. I do not see any clear indication of joint pain swelling and proximal phalangeal joints. Or knee. Pulmonology following. (3) Obesity hypoventilation syndrome Current Visit: No Status: Chronic Plan to address problem: Stress weight loss options. History Interval history: Agent today when I entered the room was resting comfortably. Nothing like yesterday. I had just ordered patient Ativan and she did well with this. Patient was concern for shortness of breath therefore ordered ABG. That ABG actually look pretty good and in fact she could wean down on some oxygen. I thought this may be some anxiety from dyspnea and the Ativan improved significantly. Hospitalist Physical - Constitutional Vitals: Temp Pulse Resp BP Pulse Ox 98.1 F 76 16 124/78 95 04/30/19 16:23 04/30/19 16:23 04/30/19 16:23 04/30/19 16:23 04/30/19 16:23 General appearance: Present: no acute distress, well-nourished - EENT Eyes: Present: PERRL, EOM intact ENT: hearing intact, clear oral mucosa, dentition normal - Neck Neck: Present: supple - Respiratory Respiratory effort: normal Respiratory: bilateral: rhonchi, wheezing (wheezing is much better patient just received the treatment.) - Cardiovascular Rhythm: regular - Extremities Extremities: no ischemia, pulses intact, pulses symmetrical, No edema, normal temperature, normal color Peripheral Pulses: within normal limits - Abdominal General gastrointestinal: soft, non-tender, non-distended, normal bowel sounds - Integumentary Integumentary: Present: clear, warm - Psychiatric Psychiatric: appropriate mood/affect, intact judgment & insight - Neurologic Neurologic: CNII-XII intact, moves all extremities Results - Labs CBC & Chem 7: 0831/19 04:17 04/29/19 04:17 Labs: Laboratory Last Values WBC 17.7 K/mm3 (4.5-11.0) H 04/29/19 04:17 RBC 3.96 M/mm3 (3.65-5.03) 04/29/19 04:17 Hgb 12.1 gm/dl (10.1-14.3) 04/29/19 04:17 Hct 35.8 % (30.3-42.9) 04/29/19 04:17 MCV 91 fl (79-97) 04/29/19 04:17 MCH 31 pg (28-32) 04/29/19 04:17 MCHC 34 % (30-34) 04/29/19 04:17 RDW 14.0 % (13.2-15.2) 04/29/19 04:17 Plt Count 219 K/mm3 (140-440) 04/29/19 04:17 Lymph % (Auto) 11.4 % (13.4-35.0) L 04/29/19 04:17 [place] % (Auto) 6.4 % (0.0-7.3) 04/29/19 04:17 Eos % (Auto) 0.1 % (0.0-4.3) 04/29/19 04:17 Baso % (Auto) 0.1 % (0.0-1.8) 04/29/19 04:17 Lymph # 2.0 K/mm3 (1.2-5.4) 04/29/19 04:17 [place] # 1.1 K/mm3 (0.0-0.8) H 04/29/19 04:17 Eos # 0.0 K/mm3 (0.0-0.4) 04/29/19 04:17 Baso # 0.0 K/mm3 (0.0-0.1) 04/29/19 04:17 Seg Neutrophils % 82.0 % (40.0-70.0) H 04/29/19 04:17 Seg Neutrophils # 14.5 K/mm3 (1.8-7.7) H 04/29/19 04:17 ABG pH 7.336 pH Units (7.350-7.450) L 04/29/19 17:20 ABG pCO2 45.0 mm Hg 04/29/19 17:20 ABG pO2 192.1 mm Hg (80.0-90.0) H 04/29/19 17:20 ABG HCO3 23.5 mmol/L (20.0-26.0) 04/29/19 17:20 ABG O2 Saturation 99.2 % (95.0-99.0) H 04/29/19 17:20 ABG O2 Content 18.8 (0.0-44) 04/29/19 17:20 ABG Base Excess -2.4 mmol/L (-2.0-3.0) L 04/29/19 17:20 ABG Hemoglobin 13.4 gm/dl (12.0-16.0) 04/29/19 17:20 ABG Carboxyhemoglobin 1.1 % (0.0-5.0) 04/29/19 17:20 ABG Methemoglobin 0.6 % (0.0-1.5) 04/29/19 17:20 VBG pH 7.410 (7.320-7.420) 04/27/19 23:05 97.4 % (95.0-99.0) 04/29/19 17:20 40 % 04/29/19 17:20 Sodium 142 mmol/L (137-145) 04/29/19 04:17 Potassium 4.2 mmol/L (3.6-5.0) 04/29/19 04:17 Chloride 104.6 mmol/L (98-107) 04/29/19 04:17 Carbon Dioxide 23 mmol/L (22-30) 04/29/19 04:17 19 mmol/L 04/29/19 04:17 BUN 8 mg/dL (7-17) 04/29/19 04:17 0.7 mg/dL (0.7-1.2) 04/29/19 04:17 Estimated GFR > 60 ml/min 04/29/19 04:17 11 % 04/29/19 04:17 Glucose 121 mg/dL (65-100) H 04/29/19 04:17 Calcium 8.7 mg/dL (8.4-10.2) 04/29/19 04:17 < 0.010 ng/mL (0.00-0.029) 04/28/19 09:35 Presumptive positive 04/28/19 08:00 Presumptive negative 04/28/19 08:00 Ur Barbiturates Screen Presumptive negative 04/28/19 08:00 Ur Phencyclidine Scrn Presumptive negative 04/28/19 08:00 Ur Amphetamines Screen Presumptive negative 04/28/19 08:00 U Benzodiazepines Scrn Presumptive negative 04/28/19 08:00 Presumptive negative 04/28/19 08:00 U Marijuana (THC) Screen Presumptive negative 04/28/19 08:00 Disclamer 04/28/19 08:00 Active Medications - Current Medications Current Medications: Generic Name Dose Route Start Last Admin Trade Name Freq PRN Reason Stop Dose Admin Acetaminophen 650 mg 04/28/19 02:56 Tylenol PO Q4H PRN Pain MILD(1-3)/Fever >100.5/WILLETT Albuterol/Ipratropium 1 ampul 04/28/19 16:00 04/30/19 16:30 Duoneb *Not For Prn Use* IH 1 ampul Q4HRT ROMMEL Administration Aspirin 81 mg 04/28/19 10:00 04/30/19 09:35 Baby Aspirin PO 81 mg QDAY ROMMEL Administration Atenolol 25 mg 04/28/19 10:00 04/30/19 09:35 Tenormin PO 25 mg DAILY ROMMEL Administration Benzonatate 100 mg 04/28/19 06:00 04/30/19 14:17 Tessalon Perles PO 100 mg Q8HR ROMMEL Administration Budesonide 0.5 mg 04/28/19 08:00 04/30/19 07:52 Pulmicort IH 0.5 mg Q12HRT ROMMEL Administration Buspirone HCl 10 mg 04/30/19 22:00 Buspar PO BID ROMMEL Dextrose 50 ml 04/28/19 03:03 D50w (25gm) Syringe IV PRN PRN Hypoglycemia Docusate Sodium 100 mg 04/28/19 10:00 04/30/19 09:35 Colace PO 100 mg BID ROMMEL Administration Enoxaparin Sodium 40 mg 04/28/19 10:00 04/30/19 09:35 Lovenox SUB-Q 40 mg QDAY ROMMEL Administration Guaifenesin 600 mg 04/28/19 10:00 04/30/19 09:35 Mucinex Er PO 600 mg BID ROMMEL Administration Hydralazine HCl 10 mg 04/28/19 03:16 Apresoline IV Q4HR PRN Blood Pressure Hydroxychloroquine Sulfate 200 mg 04/28/19 10:00 04/30/19 09:35 Plaquenil PO 200 mg QDAY ROMMEL Administration Lorazepam 1 mg 04/30/19 12:19 04/30/19 14:17 Ativan IV 1 mg Q6H PRN Administration Anxiety Methylprednisolone Sodium Succinate 60 mg 04/30/19 16:00 04/30/19 15:17 Solu-Medrol IV 60 mg Q6H ROMMEL Administration Montelukast Sodium 10 mg 04/30/19 22:00 Singulair PO QHS ROMMEL Ondansetron HCl 4 mg 04/28/19 02:56 04/29/19 20:43 Zofran IV 4 mg Q8H PRN Administration Nausea And Vomiting Oxycodone/Acetaminophen 2 tab 04/28/19 04:45 04/30/19 09:41 Percocet 5/325 PO 2 tab Q4H PRN Administration Pain, Moderate (4-6) Pseudoephedrine/Acetam/Chlorphenir 10 ml 04/28/19 05:48 04/30/19 09:35 Robitussin Ac PO 10 ml Q4H PRN Administration Cough Sodium Chloride 10 ml 04/28/19 10:00 04/30/19 09:35 Sodium Chloride Flush Syringe 10 Ml IV 10 ml BID ROMMEL Administration Sodium Chloride 10 ml 04/28/19 02:56 Sodium Chloride Flush Syringe 10 Ml IV PRN PRN LINE FLUSH Zolpidem Tartrate 10 mg 04/28/19 17:27 04/29/19 21:51 Ambien PO 10 mg QHS PRN Administration Sleep
[2019-04-30] MEDS: SINGULAIR PO SCH (21:50)
[2019-05-01] MEDS: DUONEB *Not for PRN Use IH SCH ×6 (00:15→19:45)
[2019-05-01] MEDS: SOLU-Medrol IV SCH ×4 (04:42→21:24)
[2019-05-01] MEDS: PERCOCET 5/325 PO PRN ×3 (04:42→16:18)
[2019-05-01] MEDS: TESSALON PERLES PO SCH ×3 (05:02→21:25)
[2019-05-01] MEDS: PULMICORT IH SCH ×2 (08:14→19:45)
[2019-05-01] MEDS: LOVENOX SUB-Q SCH (09:45)
[2019-05-01] MEDS: XANAX PO SCH ×2 (09:45→21:25)
[2019-05-01] MEDS: BUSPAR PO SCH ×2 (09:45→21:25)
[2019-05-01] MEDS: BABY ASPIRIN PO SCH (09:45)
[2019-05-01] MEDS: MUCINEX ER PO SCH ×2 (09:46→21:25)
[2019-05-01] MEDS: COLACE PO SCH ×2 (09:46→21:25)
[2019-05-01] MEDS: PLAQUENIL PO SCH (09:46)
[2019-05-01] MEDS: TENORMIN PO SCH (09:46)
[2019-05-01] MEDS: SODIUM CHLORIDE FLUSH SYRINGE 10 ML IV SCH ×2 (09:47→21:27)
--- NOTE | 2019-05-01 14:34 | Progress Note ---
Assessment and Plan Assessment and plan: 48-year-old female with history of lupus, fibromyalgia, asthma, hypertension, CHF with normal LVEF on echo, obesity, and arrhythmia (PAC & PVC) who presents to [facility] ED with complaints of cough, wheezing, and difficulty breathing for the past 2 days. Acute exacerbation asthma -Scheduled DuoNebs and Pulmicort, Albuterol prn -Systemic steriods -Mucinex Acute Hypoxic Respiratory Failure -CXR negative -No baseline oxygen requirements -On supplemental O2 -VBG 7.410 -Monitor saturations wean as tolerated Hypertension -Continue to monitor BP -Resume Home antihypertensive meds to optimize BP -IV antihypertensive when necessary CHF h/o -Normal LVEF 60%-65% on Echo (12/2018) -Normal thallium stress test on 12/29/18 Obesity, bmi 35 -May benefit from lifestyle and diet modifications -May benefit from outpatient weight management program History of arrhythmias (PAC and PVC) -Continuos telemetry monitoring Lupus Flare -Continue Plaquenil -On systemic steriods -Continue supportive care Hx fibromyalgia DVT PPX -on Lovenox Disposition: continue inpatient care, get CT chest w/o contrast (allergy) since patient says she is getting worse, still with severe cough despite anti-tussive meds. Will also start Xanax for anxiety disorder History Interval history: Patient was seen and examined. Follow-up on current diagnosis of asthma and lupus flare. No overnight events reported to me. Patient denies any chest pain, shortness breath, nausea/vomiting or severe headaches. Imaging, nursing note, chart, labs and old chart reviewed. Discussed with patient. Hospitalist Physical - Physical exam Narrative exam: Gen: WDWN, NAD, Awake, Alert, Orientated HEENT: NCAT, EOMI, PERRL, OP Clear Neck: supple, no adenopathy, no thyromegaly, no JVD CVS/Heart: RRR, normal S1S2, pulses present bilaterally Chest/Lungs: diminished and coarse bs bilaterally, Symmetrical chest expansion, good air entry bilaterally GI/Abdomen: soft, NTND, good bowel sounds, no guarding or rebound /Bladder: no suprapubic tenderness, no CVA or paraspinal tenderness Extermity/Skin: no c/c/e, no obvious rash MSK: FROM x 4 Neuro: CN 2-12 grossly intact, no new focal deficits Psych: anxious - Constitutional Vitals: Temp Pulse Resp BP Pulse Ox 97.7 F 86 22 134/92 98 05/01/19 08:17 05/01/19 10:00 05/01/19 10:47 05/01/19 09:46 05/01/19 10:00 General appearance: Present: no acute distress, well-nourished Results - Labs CBC & Chem 7: 04/29/19 04:17 04/29/19 04:17 Labs: Laboratory Last Values WBC 17.7 K/mm3 (4.5-11.0) H 04/29/19 04:17 RBC 3.96 M/mm3 (3.65-5.03) 04/29/19 04:17 Hgb 12.1 gm/dl (10.1-14.3) 04/29/19 04:17 Hct 35.8 % (30.3-42.9) 04/29/19 04:17 MCV 91 fl (79-97) 04/29/19 04:17 MCH 31 pg (28-32) 04/29/19 04:17 MCHC 34 % (30-34) 04/29/19 04:17 RDW 14.0 % (13.2-15.2) 04/29/19 04:17 Plt Count 219 K/mm3 (140-440) 04/29/19 04:17 Lymph % (Auto) 11.4 % (13.4-35.0) L 04/29/19 04:17 [place] % (Auto) 6.4 % (0.0-7.3) 04/29/19 04:17 Eos % (Auto) 0.1 % (0.0-4.3) 04/29/19 04:17 Baso % (Auto) 0.1 % (0.0-1.8) 04/29/19 04:17 Lymph # 2.0 K/mm3 (1.2-5.4) 04/29/19 04:17 [place] # 1.1 K/mm3 (0.0-0.8) H 04/29/19 04:17 Eos # 0.0 K/mm3 (0.0-0.4) 04/29/19 04:17 Baso # 0.0 K/mm3 (0.0-0.1) 04/29/19 04:17 Seg Neutrophils % 82.0 % (40.0-70.0) H 04/29/19 04:17 Seg Neutrophils # 14.5 K/mm3 (1.8-7.7) H 04/29/19 04:17 ABG pH 7.336 pH Units (7.350-7.450) L 04/29/19 17:20 ABG pCO2 45.0 mm Hg 04/29/19 17:20 ABG pO2 192.1 mm Hg (80.0-90.0) H 04/29/19 17:20 ABG HCO3 23.5 mmol/L (20.0-26.0) 04/29/19 17:20 ABG O2 Saturation 99.2 % (95.0-99.0) H 04/29/19 17:20 ABG O2 Content 18.8 (0.0-44) 04/29/19 17:20 ABG Base Excess -2.4 mmol/L (-2.0-3.0) L 04/29/19 17:20 ABG Hemoglobin 13.4 gm/dl (12.0-16.0) 04/29/19 17:20 ABG Carboxyhemoglobin 1.1 % (0.0-5.0) 04/29/19 17:20 ABG Methemoglobin 0.6 % (0.0-1.5) 04/29/19 17:20 VBG pH 7.410 (7.320-7.420) 04/27/19 23:05 97.4 % (95.0-99.0) 04/29/19 17:20 40 % 04/29/19 17:20 Sodium 142 mmol/L (137-145) 04/29/19 04:17 Potassium 4.2 mmol/L (3.6-5.0) 04/29/19 04:17 Chloride 104.6 mmol/L (98-107) 04/29/19 04:17 Carbon Dioxide 23 mmol/L (22-30) 04/29/19 04:17 19 mmol/L 04/29/19 04:17 BUN 8 mg/dL (7-17) 04/29/19 04:17 0.7 mg/dL (0.7-1.2) 04/29/19 04:17 Estimated GFR > 60 ml/min 04/29/19 04:17 11 % 04/29/19 04:17 Glucose 121 mg/dL (65-100) H 04/29/19 04:17 POC Glucose 130 (70-105) H 05/01/19 08:27 Calcium 8.7 mg/dL (8.4-10.2) 04/29/19 04:17 < 0.010 ng/mL (0.00-0.029) 04/28/19 09:35 Presumptive positive 04/28/19 08:00 Presumptive negative 04/28/19 08:00 Ur Barbiturates Screen Presumptive negative 04/28/19 08:00 Ur Phencyclidine Scrn Presumptive negative 04/28/19 08:00 Ur Amphetamines Screen Presumptive negative 04/28/19 08:00 U Benzodiazepines Scrn Presumptive negative 04/28/19 08:00 Presumptive negative 04/28/19 08:00 U Marijuana (THC) Screen Presumptive negative 04/28/19 08:00 Disclamer 04/28/19 08:00 Active Medications - Current Medications Current Medications: Generic Name Dose Route Start Last Admin Trade Name Freq PRN Reason Stop Dose Admin Acetaminophen 650 mg 04/28/19 02:56 Tylenol PO Q4H PRN Pain MILD(1-3)/Fever >100.5/WILLETT Albuterol/Ipratropium 1 ampul 04/28/19 16:00 05/01/19 11:33 Duoneb *Not For Prn Use* IH 1 ampul Q4HRT ROMMEL Administration Alprazolam 0.5 mg 05/01/19 10:00 05/01/19 09:45 Xanax PO 0.5 mg Q12HR ROMMEL Administration Aspirin 81 mg 04/28/19 10:00 05/01/19 09:45 Baby Aspirin PO 81 mg QDAY ROMMEL Administration Atenolol 25 mg 04/28/19 10:00 05/01/19 09:46 Tenormin PO 25 mg DAILY ROMMEL Administration Benzonatate 100 mg 04/28/19 06:00 05/01/19 05:02 Tessalon Perles PO 100 mg Q8HR ROMMEL Administration Budesonide 0.5 mg 04/28/19 08:00 05/01/19 08:14 Pulmicort IH 0.5 mg Q12HRT ROMMEL Administration Buspirone HCl 10 mg 04/30/19 22:00 05/01/19 09:45 Buspar PO 10 mg BID ROMMEL Administration Dextrose 50 ml 04/28/19 03:03 D50w (25gm) Syringe IV PRN PRN Hypoglycemia Docusate Sodium 100 mg 04/28/19 10:00 05/01/19 09:46 Colace PO 100 mg BID ROMMEL Administration Enoxaparin Sodium 40 mg 04/28/19 10:00 05/01/19 09:45 Lovenox SUB-Q 40 mg QDAY ROMMEL Administration Guaifenesin 600 mg 04/28/19 10:00 05/01/19 09:46 Mucinex Er PO 600 mg BID ROMMEL Administration Hydralazine HCl 10 mg 04/28/19 03:16 Apresoline IV Q4HR PRN Blood Pressure Hydroxychloroquine Sulfate 200 mg 04/28/19 10:00 05/01/19 09:46 Plaquenil PO 200 mg QDAY ROMMEL Administration Methylprednisolone Sodium Succinate 60 mg 04/30/19 16:00 05/01/19 09:51 Solu-Medrol IV 60 mg Q6H ROMMEL Administration Montelukast Sodium 10 mg 04/30/19 22:00 04/30/19 21:50 Singulair PO 10 mg QHS ROMMEL Administration Ondansetron HCl 4 mg 04/28/19 02:56 04/29/19 20:43 Zofran IV 4 mg Q8H PRN Administration Nausea And Vomiting Oxycodone/Acetaminophen 2 tab 04/28/19 04:45 05/01/19 09:47 Percocet 5/325 PO 2 tab Q4H PRN Administration Pain, Moderate (4-6) Pseudoephedrine/Acetam/Chlorphenir 10 ml 04/28/19 05:48 04/30/19 09:35 Robitussin Ac PO 10 ml Q4H PRN Administration Cough Sodium Chloride 10 ml 04/28/19 10:00 05/01/19 09:47 Sodium Chloride Flush Syringe 10 Ml IV 10 ml BID ROMMEL Administration Sodium Chloride 10 ml 04/28/19 02:56 Sodium Chloride Flush Syringe 10 Ml IV PRN PRN LINE FLUSH Zolpidem Tartrate 10 mg 04/28/19 17:27 04/29/19 21:51 Ambien PO 10 mg QHS PRN Administration Sleep
--- NOTE | 2019-05-01 16:26 | Cat Scan Report ---
CT CHEST WITHOUT CONTRAST INDICATION / CLINICAL INFORMATION: worsening cough. TECHNIQUE: Axial CT images were obtained through the chest without contrast. All CT scans at this location are p erformed using CT dose reduction for ALARA by means of automated exposure control. COMPARISON: None available. FINDINGS: HEART: No significant abnormality. THORACIC AORTA: No significant abnormality. MEDIASTINUM and JORGE: No significant abnormality. LUNGS: No acute air space or interstitial disease. PLEURA: No significant pleural effusion. No pneumothorax. ADDITIONAL FINDINGS: None. UPPER ABDOMEN: No significant abnormality. SKELETAL SYSTEM: No significant abnormality. IMPRESSION: 1. No significant abnormality. Signer Name: Rubén Rob MD Signed: 05/01/2019 4:21 PM Workstation Name: [id number]
--- NOTE | 2019-05-01 19:15 | Progress Note ---
Assessment and Plan Imp: 1. Severe persistent asthma with acute exac. 2. Obesity 3. GERD 4. SLE 5. Anxiety Rec: 1. Cont. Solumedrol same dose until wheezing improves; cont. Duonebs/Pulmicort/Singulair; will need to resume a LABA/ICS at d/c 2. Add PPI BID 3. Cont. anti-tussives 4. Agree w/ anti-anxiety regimen 5. CT chest reviewed, unremarkable Plan of care reviewed w/ patient, she understands/agrees Subjective Date of service: 05/01/19 Principal diagnosis: n/v, ABD pain, Loose stools. Interval history: No events. Still with SOB, wheezing, dry cough, chest pain due to coughing. No improvement. Active Medications Acetaminophen (Tylenol) 650 mg PO Q4H PRN PRN Reason: Pain MILD(1-3)/Fever >100.5/WILLETT Albuterol/Ipratropium (Duoneb *Not For Prn Use*) 1 ampul IH Q4HRT [facility] Last Admin: 05/01/19 15:54 Dose: 1 ampul Documented by: Alprazolam (Xanax) 0.5 mg PO Q12HR [facility] Last Admin: 05/01/19 09:45 Dose: 0.5 mg Documented by: Aspirin (Baby Aspirin) 81 mg PO QDAY [facility] Last Admin: 05/01/19 09:45 Dose: 81 mg Documented by: Atenolol (Tenormin) 25 mg PO DAILY [facility] Last Admin: 05/01/19 09:46 Dose: 25 mg Documented by: Benzonatate (Tessalon Perles) 100 mg PO Q8HR [facility] Last Admin: 05/01/19 16:18 Dose: 100 mg Documented by: Budesonide (Pulmicort) 0.5 mg IH Q12HRT [facility] Last Admin: 05/01/19 08:14 Dose: 0.5 mg Documented by: Buspirone HCl (Buspar) 10 mg PO BID [facility] Last Admin: 05/01/19 09:45 Dose: 10 mg Documented by: Dextrose (D50w (25gm) Syringe) 50 ml IV PRN PRN PRN Reason: Hypoglycemia Docusate Sodium (Colace) 100 mg PO BID [facility] Last Admin: 05/01/19 09:46 Dose: 100 mg Documented by: Enoxaparin Sodium (Lovenox) 40 mg SUB-Q QDAY [facility] Last Admin: 05/01/19 09:45 Dose: 40 mg Documented by: Guaifenesin (Mucinex Er) 600 mg PO BID [facility] Last Admin: 05/01/19 09:46 Dose: 600 mg Documented by: Hydralazine HCl (Apresoline) 10 mg IV Q4HR PRN PRN Reason: Blood Pressure Hydroxychloroquine Sulfate (Plaquenil) 200 mg PO QDAY [facility] Last Admin: 05/01/19 09:46 Dose: 200 mg Documented by: Methylprednisolone Sodium Succinate (Solu-Medrol) 60 mg IV Q6H [facility] Last Admin: 05/01/19 16:17 Dose: 60 mg Documented by: Montelukast Sodium (Singulair) 10 mg PO QHS [facility] Last Admin: 04/30/19 21:50 Dose: 10 mg Documented by: Ondansetron HCl (Zofran) 4 mg IV Q8H PRN PRN Reason: Nausea And Vomiting Last Admin: 04/29/19 20:43 Dose: 4 mg Documented by: Oxycodone/Acetaminophen (Percocet 5/325) 2 tab PO Q4H PRN PRN Reason: Pain, Moderate (4-6) Last Admin: 05/01/19 16:18 Dose: 2 tab Documented by: Pantoprazole Sodium (Protonix) 40 mg PO BID [facility] Pseudoephedrine/Acetam/Chlorphenir (Robitussin Ac) 10 ml PO Q4H PRN PRN Reason: Cough Last Admin: 04/30/19 09:35 Dose: 10 ml Documented by: Sodium Chloride (Sodium Chloride Flush Syringe 10 Ml) 10 ml IV BID [facility] Last Admin: 05/01/19 09:47 Dose: 10 ml Documented by: Sodium Chloride (Sodium Chloride Flush Syringe 10 Ml) 10 ml IV PRN PRN PRN Reason: LINE FLUSH Zolpidem Tartrate (Ambien) 10 mg PO QHS PRN PRN Reason: Sleep Last Admin: 04/29/19 21:51 Dose: 10 mg Documented by: Objective Vital Signs - 12hr 05/01/19 05/01/19 05/01/19 08:14 08:17 09:46 Temperature 97.7 F Pulse Rate 65 66 Pulse Rate [ 100 H Bilateral] Respiratory 18 Rate Respiratory 20 Rate [Bilateral ] Respiratory Rate [Head] Blood Pressure 134/93 134/92 O2 Sat by Pulse 95 93 Oximetry 05/01/19 05/01/19 05/01/19 09:47 10:00 10:47 Temperature Pulse Rate 86 Pulse Rate [ Bilateral] Respiratory 20 20 22 Rate Respiratory Rate [Bilateral ] Respiratory Rate [Head] Blood Pressure O2 Sat by Pulse 98 Oximetry 05/01/19 05/01/19 05/01/19 11:22 11:33 15:54 Temperature 97.9 F Pulse Rate 81 Pulse Rate [ 92 H 92 H Bilateral] Respiratory 18 Rate Respiratory 20 22 Rate [Bilateral ] Respiratory Rate [Head] Blood Pressure 119/79 O2 Sat by Pulse 92 Oximetry 05/01/19 05/01/19 05/01/19 16:05 16:18 17:00 Temperature 98.1 F Pulse Rate 85 Pulse Rate [ Bilateral] Respiratory 18 20 Rate Respiratory Rate [Bilateral ] Respiratory 20 Rate [Head] Blood Pressure 126/81 O2 Sat by Pulse 94 Oximetry 05/01/19 17:18 Temperature Pulse Rate Pulse Rate [ Bilateral] Respiratory 20 Rate Respiratory Rate [Bilateral ] Respiratory Rate [Head] Blood Pressure O2 Sat by Pulse Oximetry Constitutional: no acute distress, alert, appears uncomfortable Eyes: non-icteric ENT: oropharynx moist Neck: supple Effort: normal Ascultation: Bilateral: wheezes Cardiovascular: regular rate and rhythm (no mrg) Gastrointestinal: normoactive bowel sounds, soft, non-distended, other (obese) Integumentary: normal Extremities: no cyanosis, no edema, pink and warm, edema Neurologic: normal mental status, non-focal exam, pupils equal and round Psychiatric: anxious CBC and BMP: 04/29/19 04:17 04/29/19 04:17 ABG, PT/INR, D-dimer: ABG ABG pH 7.336 pH Units (7.350-7.450) L 04/29/19 17:20 ABG pCO2 45.0 mm Hg 04/29/19 17:20 ABG pO2 192.1 mm Hg (80.0-90.0) H 04/29/19 17:20 ABG O2 Saturation 99.2 % (95.0-99.0) H 04/29/19 17:20 Abnormal lab findings: Abnormal Labs 04/27/19 04/27/19 04/29/19 23:05 23:05 04:17 WBC 17.7 H Lymph % (Auto) 11.4 L [place] % (Auto) 7.5 H [place] # 1.1 H Seg Neutrophils % 82.0 H Seg Neutrophils # 14.5 H ABG pH ABG pO2 ABG O2 Saturation ABG Base Excess Glucose 101 H POC Glucose 04/29/19 04/29/19 05/01/19 04:17 17:20 08:27 WBC Lymph % (Auto) [place] % (Auto) [place] # Seg Neutrophils % Seg Neutrophils # ABG pH 7.336 L ABG pO2 192.1 H ABG O2 Saturation 99.2 H ABG Base Excess -2.4 L Glucose 121 H POC Glucose 130 H Chest x-ray: report reviewed, image reviewed CT scan - chest: report reviewed, image reviewed
[2019-05-01] MEDS: ROBITUSSIN AC PO PRN (21:23)
[2019-05-01] MEDS: SINGULAIR PO SCH (21:25)
[2019-05-01] MEDS: PROTONIX PO SCH (21:25)
--- NOTE | 2019-05-01 22:42 | Progress Note ---
Assessment and Plan - Patient Problems (1) Acute asthma exacerbation Current Visit: Yes Status: Acute Qualifiers: Asthma severity: moderate Asthma persistence: persistent Qualified Code(s): J45.41 - Moderate persistent asthma with (acute) exacerbation Plan to address problem: Follow pulm. (2) Chest pain Current Visit: No Status: Resolved Qualifiers: Chest pain type: unspecified Qualified Code(s): R07.9 - Chest pain, unspecified Plan to address problem: Folloe the primary team. (3) Autoimmune disease Current Visit: No Status: Chronic Plan to address problem: Continue steroids/plaquinil (4) HALE (dyspnea on exertion) Current Visit: No Status: Acute Plan to address problem: Follow pulm Subjective Date of service: 05/01/19 Principal diagnosis: n/v, ABD pain, Loose stools. Interval history: Patient seen, resting in bed, NM study reviewed, and NL.labs reviewed. Patient seen.examined, resting in bed, c/o still not confortable, as far as her pulm is concerned, is still SOB. The primary team/pulmonary to be called, for ad justment of her pulm care. Patient seen/examined, resting in bed, c/o having vaginal/ urine bleed with any stress such as coughing. She has been on LMWH, and ASA.Will check coags, and adjust. I am told that her anticoags, are already on hold.Check h/h now to make sure h/h did not drop. Objective - Constitutional Vitals: Vital Signs - 12hr 05/01/19 05/01/19 05/01/19 10:47 11:22 11:33 Temperature 97.9 F Pulse Rate 81 Pulse Rate [ 92 H Bilateral] Respiratory 22 18 Rate Respiratory 20 Rate [Bilateral ] Respiratory Rate [Head] Blood Pressure 119/79 O2 Sat by Pulse 92 Oximetry 05/01/19 05/01/19 05/01/19 15:54 16:05 16:18 Temperature 98.1 F Pulse Rate 85 Pulse Rate [ 92 H Bilateral] Respiratory 18 20 Rate Respiratory 22 Rate [Bilateral ] Respiratory Rate [Head] Blood Pressure 126/81 O2 Sat by Pulse 94 Oximetry 05/01/19 05/01/19 05/01/19 17:00 17:18 21:01 Temperature 97.9 F Pulse Rate 82 Pulse Rate [ Bilateral] Respiratory 20 22 Rate Respiratory Rate [Bilateral ] Respiratory 20 Rate [Head] Blood Pressure 122/72 O2 Sat by Pulse 97 Oximetry General appearance: Present: mild distress, well-nourished - EENT Eyes: PERRL, EOM intact ENT: hearing intact, clear oral mucosa Ears: bilateral: normal - Neck Neck: supple, normal ROM - Respiratory Respiratory: bilateral: wheezing - Breasts Breasts: deferred - Cardiovascular Rhythm: regular Heart Sounds: Present: S1 & S2. Absent: gallop, rub Extremities: pulses intact, No edema, normal color, Full ROM - Gastrointestinal General gastrointestinal: Present: soft, non-tender, non-distended, normal bowel sounds Rectal Exam: deferred - Genitourinary Female genitourinary: deferred - Integumentary Integumentary: clear, warm, dry - Musculoskeletal Musculoskeletal: 1, strength equal bilaterally - Neurologic Neurologic: moves all extremities - Psychiatric Psychiatric: memory intact, appropriate mood/affect, intact judgment & insight - Labs CBC & Chem 7: 04/29/19 04:17 04/29/19 04:17 Labs: Abnormal lab results 05/01/19 Range/Units 08:27 POC Glucose 130 H (70-105)
[2019-05-01 23:55] LABS: Hematocrit 38.7 % (30.3-42.9); Hemoglobin 12.9 gm/dl (10.1-14.3)
[2019-05-02] MEDS: DUONEB *Not for PRN Use IH SCH ×7 (00:03→23:35)
[2019-05-02 00:07] LABS: INR 0.9 (0.87-1.13)
[2019-05-02] MEDS: SOLU-Medrol IV SCH ×4 (04:03→21:34)
[2019-05-02] MEDS: ROBITUSSIN AC PO PRN (04:03)
[2019-05-02] MEDS: PERCOCET 5/325 PO PRN ×2 (05:30→18:05)
[2019-05-02] MEDS: TESSALON PERLES PO SCH ×3 (05:30→21:25)
[2019-05-02 07:25] LABS: Hematocrit 39.3 % (30.3-42.9); Hemoglobin 13.3 gm/dl (10.1-14.3); Mean Corpuscular HGB Conc 34 % (30-34); Mean Corpuscular Volume 90 fl (79-97); Platelet Count 268 K/mm3 (140-440); Red Blood Count 4.35 M/mm3 (3.65-5.03)
[2019-05-02 08:15] LABS: Alanine Aminotransferase 14 units/L (7-56); BUN/Creatinine Ratio 23; Blood Urea Nitrogen 18 mg/dL (7-17); Calcium 9.7 mg/dL (8.4-10.2); Hemolysis Index 76
[2019-05-02 09:11] LABS: Basophils % (Manual) 0 % (0.0-1.8); Eosinophils % (Manual) 0 % (0.0-4.3); Platelet Estimate Consistent w Auto; Total Cells Counted 100
[2019-05-02] MEDS: PULMICORT IH SCH ×2 (09:28→19:15)
[2019-05-02] MEDS: SODIUM CHLORIDE FLUSH SYRINGE 10 ML IV SCH ×2 (10:15→21:26)
[2019-05-02] MEDS: BUSPAR PO SCH ×2 (10:24→21:25)
[2019-05-02] MEDS: BABY ASPIRIN PO SCH (10:25)
[2019-05-02] MEDS: PROTONIX PO SCH ×2 (10:25→21:25)
[2019-05-02] MEDS: PLAQUENIL PO SCH (10:25)
[2019-05-02] MEDS: COLACE PO SCH ×2 (10:25→21:25)
[2019-05-02] MEDS: MUCINEX ER PO SCH ×2 (10:25→21:25)
[2019-05-02] MEDS: TENORMIN PO SCH (10:26)
[2019-05-02] MEDS: XANAX PO SCH ×2 (10:30→21:25)
--- NOTE | 2019-05-02 11:00 | Progress Note ---
Assessment and Plan Assessment and plan: 48-year-old female with history of lupus, fibromyalgia, asthma, hypertension, CHF with normal LVEF on echo, obesity, and arrhythmia (PAC & PVC) who presents to [facility] with complaints of cough, wheezing, and difficulty breathing for the past 2 days. * Patient requested transfer stating that all her doctors are at [facility]. She understands that she needs to get an accepting physician. She called her insurance number which provided us with an accepting physician at [facility]. I called myself and spoke to the insurance company, also spoke to [facility],. After a round about call to multiple people. Patient accepted by Dr Arlette portillo. The Nursing occupational therapy supervisor informs me that while they await all approval and confirm that indeed the insurance company is autherizing the transfer, the patient has been given the room number 3113 in [address] and the nurse can call report to [phone]. * Again every constitution party understands that this transfer is generated by the patient and not by us, as we are able to handle her entire care * We have also advised the patient that Rheumatology does not come to the hospital but she is admaant that they see her at [facility]. * She is concerned about "lupus or vasculitis in my lungs"; CT chest is normal so I do not suspect any autoimmune lung disease; she is having CT head per primary * Reviewed 2013 [place] records, at which time she had prolonged and recurrent wheezing/SOB episodes; she had a negative work-up including CT chest and bronchoscopy at the time; she was diagnosed with vocal cord dysfunction and there were concerns from multiple physicians about psychogenic/anxiety-related components to her pulmonary symptoms; cont. anxiolytics; was on SSRI also in 2013; unsure about endpoint here Acute exacerbation asthma-Severe -Scheduled DuoNebs and Pulmicort, Albuterol prn -Pulmonary following PER RECOMMNEDATION- Cont. Solumedrol same dose until wheezing improves; cont. Duonebs/Pulmicort/Singulair; will need to resume a LABA/ICS at d/c -Systemic steriods -Mucinex Acute Hypoxic Respiratory Failure -CXR negative -No baseline oxygen requirements -On supplemental O2 -VBG 7.410 -Monitor saturations wean as tolerated Hypertension -Continue to monitor BP -Resume Home antihypertensive meds to optimize BP -IV antihypertensive when necessary CHF h/o -Normal LVEF 60%-65% on Echo (12/2018) -Normal thallium stress test on 12/29/18 Obesity, bmi 35 -May benefit from lifestyle and diet modifications -May benefit from outpatient weight management program History of arrhythmias (PAC and PVC) -Continuos telemetry monitoring Lupus Flare -Continue Plaquenil -On systemic steriods -Continue supportive care Hx fibromyalgia Liver mass-Prior noted. Patient following with hematology/oncology for surveillance outpatient Near syncope -fall, with Head CT negative -Reinforced again that she should not ambulate unless with assistance from nursing staff DVT PPX -SCD due to hematuria Disposition: continue inpatient care, get CT chest w/o contrast (allergy) since patient says she is getting worse, still with severe cough despite anti-tussive meds. Will also start Xanax for anxiety disorder History Interval history: Patient seen and examined, very agitated, upset, sustained a fall today, reports dizzines. Hospitalist Physical - Physical exam Narrative exam: Gen: WDWN, NAD, Awake, Alert, Orientated, anxious HEENT: NCAT, EOMI, PERRL, OP Clear Neck: supple, no adenopathy, no thyromegaly, no JVD CVS/Heart: RRR, normal S1S2, pulses present bilaterally Chest/Lungs: diminished and coarse bs bilaterally, Symmetrical chest expansion, good air entry bilaterally GI/Abdomen: soft, NTND, good bowel sounds, no guarding or rebound /Bladder: no suprapubic tenderness, no CVA or paraspinal tenderness Extermity/Skin: no c/c/e, no obvious rash MSK: FROM x 4 Neuro: CN 2-12 grossly intact, no new focal deficits Psych: anxious - Constitutional Vitals: Temp Pulse Resp BP Pulse Ox 98.3 F 91 H 18 141/87 95 05/02/19 09:07 05/02/19 10:26 05/02/19 09:31 05/02/19 10:26 05/02/19 09:32 General appearance: Present: mild distress, well-nourished Results - Labs CBC & Chem 7: 05/02/19 07:06 05/02/19 07:06 Labs: Laboratory Last Values WBC 19.8 K/mm3 (4.5-11.0) H 05/02/19 07:06 RBC 4.35 M/mm3 (3.65-5.03) 05/02/19 07:06 Hgb 13.3 gm/dl (10.1-14.3) 05/02/19 07:06 Hct 39.3 % (30.3-42.9) 05/02/19 07:06 MCV 90 fl (79-97) 05/02/19 07:06 MCH 31 pg (28-32) 05/02/19 07:06 MCHC 34 % (30-34) 05/02/19 07:06 RDW 14.0 % (13.2-15.2) 05/02/19 07:06 Plt Count 268 K/mm3 (140-440) 05/02/19 07:06 Lymph % (Auto) 11.4 % (13.4-35.0) L 04/29/19 04:17 [place] % (Auto) 6.4 % (0.0-7.3) 04/29/19 04:17 Eos % (Auto) 0.1 % (0.0-4.3) 04/29/19 04:17 Baso % (Auto) 0.1 % (0.0-1.8) 04/29/19 04:17 Lymph # 2.0 K/mm3 (1.2-5.4) 04/29/19 04:17 [place] # 1.1 K/mm3 (0.0-0.8) H 04/29/19 04:17 Eos # 0.0 K/mm3 (0.0-0.4) 04/29/19 04:17 Baso # 0.0 K/mm3 (0.0-0.1) 04/29/19 04:17 Add Manual Diff Complete 05/02/19 07:06 Total Counted 100 05/02/19 07:06 Seg Neutrophils % 82.0 % (40.0-70.0) H 04/29/19 04:17 Seg Neuts % (Manual) 70.0 % (40.0-70.0) 05/02/19 07:06 5.0 % 05/02/19 07:06 18.0 % (13.4-35.0) 05/02/19 07:06 Reactive Lymphs % (Man) 0 % 05/02/19 07:06 7.0 % (0.0-7.3) 05/02/19 07:06 0 % (0.0-4.3) 05/02/19 07:06 0 % (0.0-1.8) 05/02/19 07:06 0 % 05/02/19 07:06 0 % 05/02/19 07:06 0 % 05/02/19 07:06 0 % 05/02/19 07:06 Nucleated RBC % Not Reportable 05/02/19 07:06 Seg Neutrophils # 14.5 K/mm3 (1.8-7.7) H 04/29/19 04:17 Seg Neutrophils # Man 13.9 K/mm3 (1.8-7.7) H 05/02/19 07:06 Band Neutrophils # 1.0 K/mm3 05/02/19 07:06 3.6 K/mm3 (1.2-5.4) 05/02/19 07:06 Abs React Lymphs (Man) 0.0 K/mm3 05/02/19 07:06 1.4 K/mm3 (0.0-0.8) H 05/02/19 07:06 0.0 K/mm3 (0.0-0.4) 05/02/19 07:06 0.0 K/mm3 (0.0-0.1) 05/02/19 07:06 0.0 K/mm3 05/02/19 07:06 0.0 K/mm3 05/02/19 07:06 0.0 K/mm3 05/02/19 07:06 Blast Cells # 0.0 K/mm3 05/02/19 07:06 WBC Morphology Not Reportable 05/02/19 07:06 Hypersegmented Neuts Not Reportable 05/02/19 07:06 Hyposegmented Neuts Not Reportable 05/02/19 07:06 Hypogranular Neuts Not Reportable 05/02/19 07:06 Not Reportable 05/02/19 07:06 Not Reportable 05/02/19 07:06 Not Reportable 05/02/19 07:06 Not Reportable 05/02/19 07:06 Not Reportable 05/02/19 07:06 Not Reportable 05/02/19 07:06 Consistent w auto 05/02/19 07:06 Not Reportable 05/02/19 07:06 Plt Clumps, EDTA Not Reportable 05/02/19 07:06 Not Reportable 05/02/19 07:06 Not Reportable 05/02/19 07:06 Not Reportable 05/02/19 07:06 Plt Morphology Comment Not Reportable 05/02/19 07:06 RBC Morphology Not Reportable 05/02/19 07:06 Dimorphic RBCs Not Reportable 05/02/19 07:06 Not Reportable 05/02/19 07:06 Not Reportable 05/02/19 07:06 Not Reportable 05/02/19 07:06 Not Reportable 05/02/19 07:06 Not Reportable 05/02/19 07:06 Not Reportable 05/02/19 07:06 Not Reportable 05/02/19 07:06 Not Reportable 05/02/19 07:06 Not Reportable 05/02/19 07:06 Not Reportable 05/02/19 07:06 Not Reportable 05/02/19 07:06 Not Reportable 05/02/19 07:06 Not Reportable 05/02/19 07:06 Not Reportable 05/02/19 07:06 Not Reportable 05/02/19 07:06 Not Reportable 05/02/19 07:06 Not Reportable 05/02/19 07:06 Not Reportable 05/02/19 07:06 Not Reportable 05/02/19 07:06 Acanthocytes (Spur) Not Reportable 05/02/19 07:06 Rouleaux Not Reportable 05/02/19 07:06 Not Reportable 05/02/19 07:06 Not Reportable 05/02/19 07:06 Not Reportable 05/02/19 07:06 Not Reportable 05/02/19 07:06 Hem Pathologist Commnt No 05/02/19 07:06 PT 11.9 Sec. (12.2-14.9) L 05/01/19 23:27 INR 0.90 (0.87-1.13) 05/01/19 23:27 APTT 27.0 Sec. (24.2-36.6) 05/01/19 23:27 ABG pH 7.336 pH Units (7.350-7.450) L 04/29/19 17:20 ABG pCO2 45.0 mm Hg 04/29/19 17:20 ABG pO2 192.1 mm Hg (80.0-90.0) H 04/29/19 17:20 ABG HCO3 23.5 mmol/L (20.0-26.0) 04/29/19 17:20 ABG O2 Saturation 99.2 % (95.0-99.0) H 04/29/19 17:20 ABG O2 Content 18.8 (0.0-44) 04/29/19 17:20 ABG Base Excess -2.4 mmol/L (-2.0-3.0) L 04/29/19 17:20 ABG Hemoglobin 13.4 gm/dl (12.0-16.0) 04/29/19 17:20 ABG Carboxyhemoglobin 1.1 % (0.0-5.0) 04/29/19 17:20 ABG Methemoglobin 0.6 % (0.0-1.5) 04/29/19 17:20 VBG pH 7.410 (7.320-7.420) 04/27/19 23:05 97.4 % (95.0-99.0) 04/29/19 17:20 40 % 04/29/19 17:20 Sodium 140 mmol/L (137-145) 05/02/19 07:06 Potassium 4.9 mmol/L (3.6-5.0) 05/02/19 07:06 Chloride 100.6 mmol/L (98-107) 05/02/19 07:06 Carbon Dioxide 28 mmol/L (22-30) 05/02/19 07:06 16 mmol/L 05/02/19 07:06 BUN 18 mg/dL (7-17) H 05/02/19 07:06 0.8 mg/dL (0.7-1.2) 05/02/19 07:06 Estimated GFR > 60 ml/min 05/02/19 07:06 23 % 05/02/19 07:06 Glucose 144 mg/dL (65-100) H 05/02/19 07:06 POC Glucose 130 (70-105) H 05/01/19 08:27 Calcium 9.7 mg/dL (8.4-10.2) 05/02/19 07:06 Magnesium 2.30 mg/dL (1.7-2.3) 05/02/19 07:06 < 0.20 mg/dL (0.1-1.2) 05/02/19 07:06 AST 19 units/L (5-40) 05/02/19 07:06 ALT 14 units/L (7-56) 05/02/19 07:06 72 units/L (35-129) 05/02/19 07:06 < 0.010 ng/mL (0.00-0.029) 04/28/19 09:35 7.0 g/dL (6.3-8.2) 05/02/19 07:06 4.0 g/dL (3.9-5) 05/02/19 07:06 1.3 % 05/02/19 07:06 Presumptive positive 04/28/19 08:00 Presumptive negative 04/28/19 08:00 Ur Barbiturates Screen Presumptive negative 04/28/19 08:00 Ur Phencyclidine Scrn Presumptive negative 04/28/19 08:00 Ur Amphetamines Screen Presumptive negative 04/28/19 08:00 U Benzodiazepines Scrn Presumptive negative 04/28/19 08:00 Presumptive negative 04/28/19 08:00 U Marijuana (THC) Screen Presumptive negative 04/28/19 08:00 Disclamer 04/28/19 08:00 Active Medications - Current Medications Current Medications: Generic Name Dose Route Start Last Admin Trade Name Freq PRN Reason Stop Dose Admin Acetaminophen 650 mg 04/28/19 02:56 Tylenol PO Q4H PRN Pain MILD(1-3)/Fever >100.5/WILLETT Albuterol/Ipratropium 1 ampul 04/28/19 16:00 05/02/19 09:28 Duoneb *Not For Prn Use* IH 1 ampul Q4HRT ROMMEL Administration Alprazolam 0.5 mg 05/01/19 10:00 05/02/19 10:30 Xanax PO 0.5 mg Q12HR ROMMEL Administration Aspirin 81 mg 04/28/19 10:00 05/02/19 10:25 Baby Aspirin PO 81 mg QDAY ROMMEL Administration Atenolol 25 mg 04/28/19 10:00 05/02/19 10:26 Tenormin PO 25 mg DAILY ROMMEL Administration Benzonatate 100 mg 04/28/19 06:00 05/02/19 05:30 Tessalon Perles PO 100 mg Q8HR ROMMEL Administration Budesonide 0.5 mg 04/28/19 08:00 05/02/19 09:28 Pulmicort IH 0.5 mg Q12HRT ROMMEL Administration Buspirone HCl 10 mg 04/30/19 22:00 05/02/19 10:24 Buspar PO 10 mg BID ROMMEL Administration Dextrose 50 ml 04/28/19 03:03 D50w (25gm) Syringe IV PRN PRN Hypoglycemia Docusate Sodium 100 mg 04/28/19 10:00 05/02/19 10:25 Colace PO 100 mg BID ROMMEL Administration Guaifenesin 600 mg 04/28/19 10:00 05/02/19 10:25 Mucinex Er PO 600 mg BID ROMMEL Administration Hydralazine HCl 10 mg 04/28/19 03:16 Apresoline IV Q4HR PRN Blood Pressure Hydroxychloroquine Sulfate 200 mg 04/28/19 10:00 05/02/19 10:25 Plaquenil PO 200 mg QDAY ROMMEL Administration Methylprednisolone Sodium Succinate 60 mg 04/30/19 16:00 05/02/19 10:30 Solu-Medrol IV 60 mg Q6H ROMMEL Administration Montelukast Sodium 10 mg 04/30/19 22:00 05/01/19 21:25 Singulair PO 10 mg QHS ROMMEL Administration Ondansetron HCl 4 mg 04/28/19 02:56 04/29/19 20:43 Zofran IV 4 mg Q8H PRN Administration Nausea And Vomiting Oxycodone/Acetaminophen 2 tab 04/28/19 04:45 05/02/19 05:30 Percocet 5/325 PO 2 tab Q4H PRN Administration Pain, Moderate (4-6) Pantoprazole Sodium 40 mg 05/01/19 22:00 05/02/19 10:25 Protonix PO 40 mg BID ROMMEL Administration Pseudoephedrine/Acetam/Chlorphenir 10 ml 04/28/19 05:48 05/02/19 04:03 Robitussin Ac PO 10 ml Q4H PRN Administration Cough Sodium Chloride 10 ml 04/28/19 10:00 05/01/19 21:27 Sodium Chloride Flush Syringe 10 Ml IV 10 ml BID ROMMEL Administration Sodium Chloride 10 ml 04/28/19 02:56 Sodium Chloride Flush Syringe 10 Ml IV PRN PRN LINE FLUSH Zolpidem Tartrate 10 mg 04/28/19 17:27 04/29/19 21:51 Ambien PO 10 mg QHS PRN Administration Sleep
--- NOTE | 2019-05-02 13:44 | Progress Note ---
Assessment and Plan Imp: 1. Severe persistent asthma with acute exac. 2. Obesity 3. GERD 4. SLE 5. Anxiety Rec: 1. Cont. Solumedrol same dose until wheezing improves; cont. Duonebs/Pulmicort/Singulair; will need to resume a LABA/ICS at d/c 2. Added PPI BID 3. Cont. anti-tussives 4. She is concerned about "lupus or vasculitis in my lungs"; CT chest is normal so I do not suspect any autoimmune lung disease; she is having CT head per primary 5. Reviewed 2013 [place] records, at which time she had prolonged and recurrent wheezing/SOB episodes; she had a negative work-up including CT chest and bronchoscopy at the time; she was diagnosed with vocal cord dysfunction and there were concerns from multiple physicians about psychogenic/anxiety-related components to her pulmonary symptoms; cont. anxiolytics; was on SSRI also in 2013; unsure about endpoint here Plan of care reviewed w/ patient, she understands/agrees Subjective Date of service: 05/02/19 Principal diagnosis: n/v, ABD pain, Loose stools. Interval history: Multiple complaints ongoing: headache, dizziness, vaginal bleeding, cough, SOB, wheezing, chest pain. States pulmonary symptoms marginally better only b/c of cough syrup. Active Medications Acetaminophen (Tylenol) 650 mg PO Q4H PRN PRN Reason: Pain MILD(1-3)/Fever >100.5/WILLETT Albuterol/Ipratropium (Duoneb *Not For Prn Use*) 1 ampul IH Q4HRT [facility] Last Admin: 05/02/19 09:28 Dose: 1 ampul Documented by: Alprazolam (Xanax) 0.5 mg PO Q12HR [facility] Last Admin: 05/02/19 10:30 Dose: 0.5 mg Documented by: Aspirin (Baby Aspirin) 81 mg PO QDAY [facility] Last Admin: 05/02/19 10:25 Dose: 81 mg Documented by: Atenolol (Tenormin) 25 mg PO DAILY [facility] Last Admin: 05/02/19 10:26 Dose: 25 mg Documented by: Benzonatate (Tessalon Perles) 100 mg PO Q8HR [facility] Last Admin: 05/02/19 05:30 Dose: 100 mg Documented by: Budesonide (Pulmicort) 0.5 mg IH Q12HRT [facility] Last Admin: 05/02/19 09:28 Dose: 0.5 mg Documented by: Buspirone HCl (Buspar) 10 mg PO BID [facility] Last Admin: 05/02/19 10:24 Dose: 10 mg Documented by: Dextrose (D50w (25gm) Syringe) 50 ml IV PRN PRN PRN Reason: Hypoglycemia Docusate Sodium (Colace) 100 mg PO BID [facility] Last Admin: 05/02/19 10:25 Dose: 100 mg Documented by: Guaifenesin (Mucinex Er) 600 mg PO BID [facility] Last Admin: 05/02/19 10:25 Dose: 600 mg Documented by: Hydralazine HCl (Apresoline) 10 mg IV Q4HR PRN PRN Reason: Blood Pressure Hydroxychloroquine Sulfate (Plaquenil) 200 mg PO QDAY [facility] Last Admin: 05/02/19 10:25 Dose: 200 mg Documented by: Sodium Chloride (Nacl 0.9% 1000 Ml) 1,000 mls @ 125 mls/hr IV DIRECT [facility] Methylprednisolone Sodium Succinate (Solu-Medrol) 60 mg IV Q6H [facility] Last Admin: 05/02/19 10:30 Dose: 60 mg Documented by: Montelukast Sodium (Singulair) 10 mg PO QHS [facility] Last Admin: 05/01/19 21:25 Dose: 10 mg Documented by: Ondansetron HCl (Zofran) 4 mg IV Q8H PRN PRN Reason: Nausea And Vomiting Last Admin: 04/29/19 20:43 Dose: 4 mg Documented by: Oxycodone/Acetaminophen (Percocet 5/325) 2 tab PO Q4H PRN PRN Reason: Pain, Moderate (4-6) Last Admin: 05/02/19 05:30 Dose: 2 tab Documented by: Pantoprazole Sodium (Protonix) 40 mg PO BID [facility] Last Admin: 05/02/19 10:25 Dose: 40 mg Documented by: Pseudoephedrine/Acetam/Chlorphenir (Robitussin Ac) 10 ml PO Q4H PRN PRN Reason: Cough Last Admin: 05/02/19 04:03 Dose: 10 ml Documented by: Sodium Chloride (Sodium Chloride Flush Syringe 10 Ml) 10 ml IV BID [facility] Last Admin: 05/01/19 21:27 Dose: 10 ml Documented by: Sodium Chloride (Sodium Chloride Flush Syringe 10 Ml) 10 ml IV PRN PRN PRN Reason: LINE FLUSH Zolpidem Tartrate (Ambien) 10 mg PO QHS PRN PRN Reason: Sleep Last Admin: 04/29/19 21:51 Dose: 10 mg Documented by: Objective Vital Signs - 12hr 05/02/19 05/02/19 05/02/19 03:38 04:56 05:00 Temperature 98.2 F Pulse Rate 89 Pulse Rate [ 90 Bilateral] Respiratory 20 Rate Respiratory 22 Rate [Bilateral ] Blood Pressure 124/81 O2 Sat by Pulse 94 Oximetry 05/02/19 05/02/19 05/02/19 05:30 09:07 09:31 Temperature 98.3 F Pulse Rate 91 H Pulse Rate [ 97 H Bilateral] Respiratory 20 16 Rate Respiratory 18 Rate [Bilateral ] Blood Pressure 141/87 O2 Sat by Pulse 95 Oximetry 05/02/19 05/02/19 09:32 10:26 Temperature Pulse Rate 91 H Pulse Rate [ Bilateral] Respiratory Rate Respiratory Rate [Bilateral ] Blood Pressure 141/87 O2 Sat by Pulse 95 Oximetry Constitutional: no acute distress, alert, appears uncomfortable Eyes: non-icteric ENT: oropharynx moist Neck: supple Effort: normal Ascultation: Bilateral: wheezes Percussion: Bilateral: not dull Tactile fremitus: Bilateral: normal Cardiovascular: regular rate and rhythm (no mrg) Gastrointestinal: normoactive bowel sounds, soft, non-distended, other (obese) Integumentary: normal Extremities: no cyanosis, no edema, pink and warm, edema Neurologic: normal mental status, non-focal exam, pupils equal and round Psychiatric: anxious CBC and BMP: 05/02/19 07:06 05/02/19 07:06 ABG, PT/INR, D-dimer: ABG ABG pH 7.336 pH Units (7.350-7.450) L 04/29/19 17:20 ABG pCO2 45.0 mm Hg 04/29/19 17:20 ABG pO2 192.1 mm Hg (80.0-90.0) H 04/29/19 17:20 ABG O2 Saturation 99.2 % (95.0-99.0) H 04/29/19 17:20 PT/INR, D-dimer PT 11.9 Sec. (12.2-14.9) L 05/01/19 23:27 INR 0.90 (0.87-1.13) 05/01/19 23:27 Abnormal lab findings: Abnormal Labs 04/27/19 04/27/19 04/29/19 23:05 23:05 04:17 WBC 17.7 H Lymph % (Auto) 11.4 L Fisher % (Auto) 7.5 H Fisher # 1.1 H Seg Neutrophils % 82.0 H Seg Neutrophils # 14.5 H Seg Neutrophils # Man Monocytes # (Manual) PT ABG pH ABG pO2 ABG O2 Saturation ABG Base Excess BUN Glucose 101 H POC Glucose 04/29/19 04/29/19 05/01/19 04:17 17:20 08:27 WBC Lymph % (Auto) Fisher % (Auto) Fisher # Seg Neutrophils % Seg Neutrophils # Seg Neutrophils # Man Monocytes # (Manual) PT ABG pH 7.336 L ABG pO2 192.1 H ABG O2 Saturation 99.2 H ABG Base Excess -2.4 L BUN Glucose 121 H POC Glucose 130 H 05/01/19 05/02/19 05/02/19 23:27 07:06 07:06 WBC 19.8 H Lymph % (Auto) Fisher % (Auto) Fisher # Seg Neutrophils % Seg Neutrophils # Seg Neutrophils # Man 13.9 H Monocytes # (Manual) 1.4 H PT 11.9 L ABG pH ABG pO2 ABG O2 Saturation ABG Base Excess BUN 18 H Glucose 144 H POC Glucose Chest x-ray: report reviewed, image reviewed CT scan - chest: report reviewed, image reviewed
--- NOTE | 2019-05-02 14:37 | Cat Scan Report ---
CT HEAD WITHOUT CONTRAST INDICATION / CLINICAL INFORMATION: Fall, head injury. TECHNIQUE: Axial imaging performed from the skull apex through the skull base without the use of cont rast. Sagittal and coronal reformatted images. All CT scans at this location are performed using CT dose reduction for ALARA by means of automated exposure control. COMPARISON: None available. FINDINGS: CEREBRAL PARENCHYMA: No significant abnormality. No acute territorial infarct. HEMORRHAGE: None. EXTRA-AXIAL SPACES: Normal in size and morphology for the patient's age. VENTRICULAR SYSTEM: Normal in size and morphology for the patient's age. MIDLINE SHIFT OR HERNIATION: None. CEREBELLUM / BRAINSTEM: No significant abnormality. CALVARIUM: No significant abnormality. ORBITS: Normal as visualized. PARANASAL SINUSES / MASTOID AIR CELLS: Normal as visualized. SOFT TISSUES of HEAD: No significant abnormality. ADDITIONAL FINDINGS: None. IMPRESSION: No acute intracranial abnormality. Signer Name: Gabino Alvarez Jr, MD Signed: 05/02/2019 2:32 PM Workstation Name: [id number]
[2019-05-02 14:40] LABS: Bilirubin,Urine NEG (Negative); Blood,Urine LG (Negative); Color,Urine Yellow (Yellow); Mucus,Urine FEW /HPF; Urobilinogen,Urine < 2.0 mg/dL (<2.0)
[2019-05-02] MEDS: NACL 0.9% 1000 ML 1,000 ML IV SCH (15:18)
[2019-05-02] MEDS: AUGMENTIN 875 MG PO SCH ×2 (16:45→21:25)
--- NOTE | 2019-05-02 16:47 | Discharge Summary ---
Providers - Providers Date of Admission: 04/28/19 02:56 Attending physician: TERESA TANG MD 04/28/19 05:49 Consult to Physician [CONS] Routine Comment: Consulting Provider: SUSANNA LOMAX Physician Instructions: Reason For Exam: asthma 04/28/19 17:26 Consult to Physician [CONS] Routine Comment: Consulting Provider: DIPTI WILSON Physician Instructions: Reason For Exam: SLE flare, your outpatient [facility] Reason for admission: shortness of breath Condition: Stable Hospital course: 48-year-old female with history of lupus, fibromyalgia, asthma, hypertension, CHF with normal LVEF on echo, obesity, and arrhythmia (PAC & PVC) who presents to [facility] with complaints of cough, wheezing, and difficulty breathing for the past 2 days. * Patient requested transfer stating that all her doctors are at [facility]. She understands that she needs to get an accepting physician. She called her insurance number which provided us with an accepting physician at [facility]. I called myself and spoke to the insurance company, also spoke to [facility],. After a round about call to multiple people. Patient accepted by Dr Arlette portillo. The Nursing correctional supply supervisor informs me that while they await all approval and confirm that indeed the insurance company is autherizing the transfer, the patient has been given the room number 3113 in [place] and the nurse can call report to [phone]. * Again every democrat understands that this transfer is generated by the patient and not by us, as we are able to handle her entire care * We have also advised the patient that Rheumatology does not come to the hospital but she is admaant that they see her at [facility]. * She is concerned about "lupus or vasculitis in my lungs"; CT chest is normal so I do not suspect any autoimmune lung disease; she is having CT head per primary * Reviewed 2013 [place] records, at which time she had prolonged and recurrent wheezing/SOB episodes; she had a negative work-up including CT chest and bronchoscopy at the time; she was diagnosed with vocal cord dysfunction and there were concerns from multiple physicians about psychogenic/anxiety-related components to her pulmonary symptoms; cont. anxiolytics; was on SSRI also in 2013; unsure about endpoint here Acute exacerbation asthma-Severe -Scheduled DuoNebs and Pulmicort, Albuterol prn -Pulmonary following PER RECOMMENDATION- Cont. Solumedrol same dose until wheezing improves; cont. Duonebs/Pulmicort/Singulair; will need to resume a LABA/ICS at d/c -Systemic steriods -Mucinex Acute Hypoxic Respiratory Failure -CXR negative -No baseline oxygen requirements -On supplemental O2 -VBG 7.410 -Monitor saturations wean as tolerated Hypertension -Continue to monitor BP -Resume Home antihypertensive meds to optimize BP -IV antihypertensive when necessary Hematuria * renal ultrasound ordered. based on finding can discuss for outpatient Urology eval ACUTE CYSTITIS * Continue on Augmentin CHF h/o -Normal LVEF 60%-65% on Echo (12/2018) -Normal thallium stress test on 12/29/18 Obesity, bmi 35 -May benefit from lifestyle and diet modifications -May benefit from outpatient weight management program History of arrhythmias (PAC and PVC) -Continuos telemetry monitoring Lupus Flare -Continue Plaquenil -On systemic steriods -Continue supportive care Hx fibromyalgia Liver mass-Prior noted. Patient following with hematology/oncology for surveillance outpatient Near syncope -fall, with Head CT negative -Reinforced again that she should not ambulate unless with assistance from nursing staff DVT PPX -SCD due to hematuria [id number] care, get CT chest w/o contrast (allergy) since patient says she is getting worse, still with severe cough despite anti-tussive meds. Will also start Xanax for anxiety disorder Disposition: DC/TX-70 ANOTHER TYPE THCARE Time spent for discharge: 35 mins Core Measure Documentation - Palliative Care Palliative Care/ Comfort Measures: Not Applicable - Core Measures Any of the following diagnoses?: none Exam - Physical Exam Narrative exam: Gen: WDWN, NAD, Awake, Alert, Orientated, anxious HEENT: NCAT, EOMI, PERRL, OP Clear Neck: supple, no adenopathy, no thyromegaly, no JVD CVS/Heart: RRR, normal S1S2, pulses present bilaterally Chest/Lungs: diminished and coarse bs bilaterally, Symmetrical chest expansion, good air entry bilaterally GI/Abdomen: soft, NTND, good bowel sounds, no guarding or rebound /Bladder: no suprapubic tenderness, no CVA or paraspinal tenderness Extermity/Skin: no c/c/e, no obvious rash MSK: FROM x 4 Neuro: CN 2-12 grossly intact, no new focal deficits Psych: anxious - Constitutional Vitals: Temp Pulse Resp BP Pulse Ox 98.3 F 100 H 18 141/87 95 05/02/19 09:07 05/02/19 14:48 05/02/19 14:48 05/02/19 10:26 05/02/19 09:32 Plan Activity: advance as tolerated, fall precautions Diet: low fat, low salt Special Instructions: record daily weights, record daily BP diary Follow up with: DOMINIQUE ANAYA MD [Primary Care Provider] - 7 Days
--- NOTE | 2019-05-02 20:02 | Progress Note ---
Assessment and Plan - Patient Problems (1) Acute asthma exacerbation Current Visit: Yes Status: Acute Qualifiers: Asthma severity: moderate Asthma persistence: persistent Qualified Code(s): J45.41 - Moderate persistent asthma with (acute) exacerbation Plan to address problem: Follow pulm. (2) Autoimmune disease Current Visit: No Status: Chronic Plan to address problem: Continue steroids/plaquinil (3) HALE (dyspnea on exertion) Current Visit: No Status: Acute Plan to address problem: Follow pulm Subjective Date of service: 05/02/19 Principal diagnosis: n/v, ABD pain, Loose stools. Interval history: Patient seen, resting in bed, NM study reviewed, and NL.labs reviewed. Patient seen.examined, resting in bed, c/o still not confortable, as far as her pulm is concerned, is still SOB. The primary team/pulmonary to be called, for adjustment of her pulm care. Patient seen/examined, resting in bed, c/o having vaginal/ urine bleed with any stress such as coughing. She has been on LMWH, and ASA.Will check coags, and adjust. I am told that her anticoags, are already on hold.Check h/h now to make sure h/h did not drop. patient seen, and i had spoken to The primary team earlier, notes reviewed, concerning transfer to [facility].As per the primary, and the records, w/up here so far negative. Objective - Constitutional Vitals: Vital Signs - 12hr 05/02/19 05/02/19 05/02/19 09:07 09:31 09:32 Temperature 98.3 F Pulse Rate 91 H Pulse Rate [ 97 H Bilateral] Respiratory 16 Rate Respiratory 18 Rate [Bilateral ] Blood Pressure 141/87 O2 Sat by Pulse 95 95 Oximetry 05/02/19 05/02/19 05/02/19 10:26 11:57 14:48 Temperature Pulse Rate 91 H 89 Pulse Rate [ 100 H Bilateral] Respiratory Rate Respiratory 18 Rate [Bilateral ] Blood Pressure 141/87 152/100 O2 Sat by Pulse 94 Oximetry 05/02/19 05/02/19 05/02/19 18:05 19:05 19:16 Temperature Pulse Rate Pulse Rate [ 100 H Bilateral] Respiratory 16 15 Rate Respiratory 18 Rate [Bilateral ] Blood Pressure O2 Sat by Pulse Oximetry 09/03/19 09/03/19 19:17 19:36 Temperature 98.0 F Pulse Rate 93 H Pulse Rate [ Bilateral] Respiratory 18 Rate Respiratory Rate [Bilateral ] Blood Pressure 146/92 O2 Sat by Pulse 95 92 Oximetry General appearance: Present: mild distress, well-nourished - EENT Eyes: PERRL, EOM intact ENT: hearing intact, clear oral mucosa Ears: bilateral: normal - Neck Neck: supple, normal ROM - Respiratory Respiratory effort: normal Respiratory: bilateral: CTA - Breasts Breasts: deferred - Cardiovascular Rhythm: regular Heart Sounds: Present: S1 & S2. Absent: gallop, rub Extremities: pulses intact, No edema, normal color, Full ROM - Gastrointestinal General gastrointestinal: Present: soft, non-tender, non-distended, normal bowel sounds Rectal Exam: deferred - Genitourinary Female genitourinary: deferred - Integumentary Integumentary: clear, warm, dry - Musculoskeletal Musculoskeletal: 1, strength equal bilaterally - Neurologic Neurologic: moves all extremities - Psychiatric Psychiatric: memory intact, appropriate mood/affect, intact judgment & insight - Labs CBC & Chem 7: 05/02/19 07:06 05/02/19 07:06 Labs: Abnormal lab results 05/01/19 05/02/19 05/02/19 Range/Units 23:27 07:06 07:06 WBC 19.8 H (4.5-11.0) K/mm3 Seg Neutrophils # Man 13.9 H (1.8-7.7) K/mm3 Monocytes # (Manual) 1.4 H (0.0-0.8) K/mm3 PT 11.9 L (12.2-14.9) Sec. BUN 18 H (7-17) mg/dL Glucose 144 H (65-100) mg/dL Urine WBC (Auto) (0.0-6.0) /HPF 05/02/19 Range/Units 13:50 WBC (4.5-11.0) K/mm3 Seg Neutrophils # Man (1.8-7.7) K/mm3 Monocytes # (Manual) (0.0-0.8) K/mm3 PT (12.2-14.9) Sec. BUN (7-17) mg/dL Glucose (65-100) mg/dL Urine WBC (Auto) 57.0 H (0.0-6.0) /HPF Medications & Allergies - Medications Allergies/Adverse Reactions: Allergies bee venom protein (honey bee) Allergy (Verified 07/10/18 16:39) Shortness of Breath iv contrast Allergy (Uncoded 07/10/18 16:36) Hives Home Medications: Home Medications Medication Instructions Recorded Confirmed Last Taken Type ALBUTEROL Inhaler(NF) [VENTOLIN 1 puff IH Q4HR PRN #1 inha 07/10/18 04/28/19 U nknown Rx Inhaler(NF)] Atenolol [Tenormin] 25 mg PO DAILY 12/28/18 04/28/19 Unknown History busPIRone [Buspar] 10 mg PO BID 12/28/18 04/28/19 Unknown History Aspirin [Aspirin BABY CHEW TAB] 81 mg PO QDAY #30 tab.chew 12/30/18 04/28/19 Unknown Rx Hydroxychloroquine [Plaquenil] 200 mg PO QDAY 30 Days tablet 12/30/18 04/28/19 Unknown Rx Prednisone [predniSONE 10 mg 10 mg PO .TAPER #1 tab.ds.pk 12/30/18 04/28/19 Unknown Rx (6-Day Pack, 21 Tabs)] Active Medications: Generic Name Dose Route Start Last Admin Trade Name Freq PRN Reason Stop Dose Admin Acetaminophen 650 mg 04/28/19 02:56 Tylenol PO Q4H PRN Pain MILD(1-3)/Fever >100.5/WILLETT Albuterol/Ipratropium 1 ampul 04/28/19 16:00 05/02/19 19:15 Duoneb *Not For Prn Use* IH 1 ampul Q4HRT ROMMEL Administration Alprazolam 0.5 mg 05/01/19 10:00 05/02/19 10:30 Xanax PO 0.5 mg Q12HR ROMMEL Administration Amoxicillin/Clavulanate Potassium 1 each 05/02/19 16:00 05/02/19 16:45 Augmentin 875 Mg PO 1 each Q12HR ROMMEL Administration Aspirin 81 mg 04/28/19 10:00 05/02/19 10:25 Baby Aspirin PO 81 mg QDAY ROMMEL Administration Atenolol 25 mg 04/28/19 10:00 05/02/19 10:26 Tenormin PO 25 mg DAILY ROMMEL Administration Benzonatate 100 mg 04/28/19 06:00 05/02/19 14:00 Tessalon Perles PO 100 mg Q8HR ROMMEL Administration Budesonide 0.5 mg 04/28/19 08:00 05/02/19 19:15 Pulmicort IH 0.5 mg Q12HRT ROMMEL Administration Buspirone HCl 10 mg 04/30/19 22:00 05/02/19 10:24 Buspar PO 10 mg BID ROMMEL Administration Dextrose 50 ml 04/28/19 03:03 D50w (25gm) Syringe IV PRN PRN Hypoglycemia Docusate Sodium 100 mg 04/28/19 10:00 05/02/19 10:25 Colace PO 100 mg BID ROMMEL Administration Guaifenesin 600 mg 04/28/19 10:00 05/02/19 10:25 Mucinex Er PO 600 mg BID ROMMEL Administration Hydralazine HCl 10 mg 04/28/19 03:16 Apresoline IV Q4HR PRN Blood Pressure Hydroxychloroquine Sulfate 200 mg 04/28/19 10:00 05/02/19 10:25 Plaquenil PO 200 mg QDAY ROMMEL Administration Sodium Chloride 1,000 mls @ 125 mls/hr 05/02/19 13:00 05/02/19 15:18 Nacl 0.9% 1000 Ml IV 125 mls/hr DIRECT ROMMEL Administration Methylprednisolone Sodium Succinate 60 mg 04/30/19 16:00 05/02/19 16:45 Solu-Medrol IV 60 mg Q6H ROMMEL Administration Montelukast Sodium 10 mg 04/30/19 22:00 05/01/19 21:25 Singulair PO 10 mg QHS ROMMEL Administration Ondansetron HCl 4 mg 04/28/19 02:56 04/29/19 20:43 Zofran IV 4 mg Q8H PRN Administration Nausea And Vomiting Oxycodone/Acetaminophen 2 tab 04/28/19 04:45 05/02/19 18:05 Percocet 5/325 PO 2 tab Q4H PRN Administration Pain, Moderate (4-6) Pantoprazole Sodium 40 mg 05/01/19 22:00 05/02/19 10:25 Protonix PO 40 mg BID ROMMEL Administration Pseudoephedrine/Acetam/Chlorphenir 10 ml 04/28/19 05:48 05/02/19 04:03 Robitussin Ac PO 10 ml Q4H PRN Administration Cough Sodium Chloride 10 ml 04/28/19 10:00 05/02/19 10:15 Sodium Chloride Flush Syringe 10 Ml IV 10 ml BID ROMMEL Administration Sodium Chloride 10 ml 04/28/19 02:56 Sodium Chloride Flush Syringe 10 Ml IV PRN PRN LINE FLUSH Zolpidem Tartrate 10 mg 04/28/19 17:27 04/29/19 21:51 Ambien PO 10 mg QHS PRN Administration Sleep
[2019-05-02] MEDS: SINGULAIR PO SCH (21:25)
[2019-05-02] MEDS: ZOFRAN IV PRN (21:25)
[2019-05-03] MEDS: AMBIEN PO PRN (01:42)
[2019-05-03] MEDS: ROBITUSSIN AC PO PRN ×2 (01:42→13:13)
[2019-05-03] MEDS: NACL 0.9% 1000 ML 1,000 ML IV SCH (01:43)
[2019-05-03] MEDS: DUONEB *Not for PRN Use IH SCH ×5 (03:19→20:46)
--- NOTE | 2019-05-03 04:54 | Progress Note ---
Assessment and Plan - Patient Problems (1) Acute asthma exacerbation Current Visit: Yes Status: Acute Qualifiers: Asthma severity: moderate Asthma persistence: persistent Qualified Code(s): J45.41 - Moderate persistent asthma with (acute) exacerbation Plan to address problem: Follow pulm. (2) Autoimmune disease Current Visit: No Status: Chronic Plan to address problem: Continue steroids/plaquinil (3) HALE (dyspnea on exertion) Current Visit: No Status: Acute Plan to address problem: Follow pulm Subjective Date of service: 05/03/19 Principal diagnosis: n/v, ABD pain, Loose stools. Interval history: Patient seen, resting in bed, NM study reviewed, and NL.labs reviewed. Patient seen.examined, resting in bed, c/o still not confortable, as far as her pulm is concerned, is still SOB. The primary team/pulmonary to be called, for adjustment of her pulm care. Patient seen/examined, resting in bed, c/o having vaginal/ urine bleed with any stress such as coughing. She has been on LMWH, and ASA.Will check coags, and adjust. I am told that her anticoags, are already on hold.Check h/h now to make sure h/h did not drop. patient seen, and i had spoken to The primary team earlier, notes reviewed, concerning transfer to [facility].As per the primary, and the records, w/up here so far negative. Patient asleep, but easily aroused. no new issues since last night. rec remains either to get urology to see her, since she is insisting that she is bleeding into her urine.or just transfer out if her insurance is telling her that she may get transfer to another hospital of her choice. Objective - Constitutional Vitals: Vital Signs - 12hr 05/02/19 05/02/19 05/02/19 18:05 19:05 19:16 Temperature Pulse Rate Pulse Rate [ 100 H Bilateral] Respiratory 16 15 Rate Respiratory 18 Rate [Bilateral ] Blood Pressure O2 Sat by Pulse Oximetry 05/02/19 05/02/19 05/02/19 19:17 19:36 20:25 Temperature 98.0 F Pulse Rate 93 H Pulse Rate [ Bilateral] Respiratory 18 22 Rate Respiratory Rate [Bilateral ] Blood Pressure 146/92 O2 Sat by Pulse 95 92 Oximetry 05/02/19 05/02/19 05/02/19 22:00 23:36 23:54 Temperature Pulse Rate 75 75 Pulse Rate [ 105 H Bilateral] Respiratory 20 Rate Respiratory 19 Rate [Bilateral ] Blood Pressure 122/81 O2 Sat by Pulse 97 Oximetry 05/02/19 05/03/19 23:56 03:19 Temperature 97.8 F Pulse Rate Pulse Rate [ 104 H Bilateral] Respiratory Rate Respiratory 19 Rate [Bilateral ] Blood Pressure O2 Sat by Pulse Oximetry General appearance: Present: no acute distress, well-nourished - EENT Eyes: PERRL, EOM intact ENT: hearing intact, clear oral mucosa Ears: bilateral: normal - Neck Neck: supple, normal ROM - Respiratory Respiratory: bilateral: wheezing - Breasts Breasts: deferred - Cardiovascular Rhythm: regular Heart Sounds: Present: S1 & S2. Absent: gallop, rub Extremities: pulses intact, No edema, normal color, Full ROM - Gastrointestinal General gastrointestinal: Present: soft, non-tender, non-distended, normal bowel sounds Rectal Exam: deferred - Genitourinary Female genitourinary: deferred - Integumentary Integumentary: clear, warm, dry - Musculoskeletal Musculoskeletal: 1, strength equal bilaterally - Neurologic Neurologic: moves all extremities - Psychiatric Psychiatric: memory intact, appropriate mood/affect, intact judgment & insight - Labs CBC & Chem 7: 05/02/19 07:06 05/02/19 07:06 Labs: Abnormal lab results 05/02/19 05/02/19 05/02/19 Range/Units 07:06 07:06 13:50 WBC 19.8 H (4.5-11.0) K/mm3 Seg Neutrophils # Man 13.9 H (1.8-7.7) K/mm3 Monocytes # (Manual) 1.4 H (0.0-0.8) K/mm3 BUN 18 H (7-17) mg/dL Glucose 144 H (65-100) mg/dL Urine WBC (Auto) 57.0 H (0.0-6.0) /HPF Medications & Allergies - Medications Allergies/Adverse Reactions: Allergies bee venom protein (honey bee) Allergy (Verified 07/10/18 16:39) Shortness of Breath iv contrast Allergy (Uncoded 07/10/18 16:36) Hives Home Medications: Home Medications Medication Instructions Recorded Confirmed Last Taken Type ALBUTEROL Inhaler(NF) [VENTOLIN 1 puff IH Q4HR PRN #1 inha 07/10/18 04/28/19 Unknown Rx Inhaler(NF)] Atenolol [Tenormin] 25 mg PO DAILY 12/28/18 04/28/19 Unknown History busPIRone [Buspar] 10 mg PO BID 12/28/18 04/28/19 Unknown History Aspirin [Aspirin BABY CHEW TAB] 81 mg PO QDAY #30 tab.chew 12/30/18 04/28/19 Unknown Rx Hydroxychloroquine [Plaquenil] 200 mg PO QDAY 30 Days tablet 12/30/18 04/28/19 Unknown Rx Prednisone [predniSONE 10 mg 10 mg PO .TAPER #1 tab.ds.pk 12/30/18 04/28/19 Unknown Rx (6-Day Pack, 21 Tabs)] Active Medications: Generic Name Dose Route Start Last Admin Trade Name Freq PRN Reason Stop Dose Admin Acetaminophen 650 mg 04/28/19 02:56 Tylenol PO Q4H PRN Pain MILD(1-3)/Fever >100.5/WILLETT Albuterol/Ipratropium 1 ampul 04/28/19 16:00 05/03/19 03:19 Duoneb *Not For Prn Use* IH 1 ampul Q4HRT ROMMEL Administration Alprazolam 0.5 mg 05/01/19 10:00 05/02/19 21:25 Xanax PO 0.5 mg Q12HR ROMMEL Administration Amoxicillin/Clavulanate Potassium 1 each 05/02/19 16:00 05/02/19 21:25 Augmentin 875 Mg PO 1 each Q12HR ROMMEL Administration Aspirin 81 mg 04/28/19 10:00 05/02/19 10:25 Baby Aspirin PO 81 mg QDAY ROMMEL Administration Atenolol 25 mg 04/28/19 10:00 05/02/19 10:26 Tenormin PO 25 mg DAILY ROMMEL Administration Benzonatate 100 mg 04/28/19 06:00 05/02/19 21:25 Tessalon Perles PO 100 mg Q8HR ROMMEL Administration Budesonide 0.5 mg 04/28/19 08:00 05/02/19 19:15 Pulmicort IH 0.5 mg Q12HRT ROMMEL Administration Buspirone HCl 10 mg 04/30/19 22:00 05/02/19 21:25 Buspar PO 10 mg BID ROMMEL Administration Dextrose 50 ml 04/28/19 03:03 D50w (25gm) Syringe IV PRN PRN Hypoglycemia Docusate Sodium 100 mg 04/28/19 10:00 05/02/19 21:25 Colace PO 100 mg BID ROMMEL Administration Guaifenesin 600 mg 04/28/19 10:00 05/02/19 21:25 Mucinex Er PO 600 mg BID ROMMEL Administration Hydralazine HCl 10 mg 04/28/19 03:16 Apresoline IV Q4HR PRN Blood Pressure Hydroxychloroquine Sulfate 200 mg 04/28/19 10:00 05/02/19 10:25 Plaquenil PO 200 mg QDAY ROMMEL Administration Sodium Chloride 1,000 mls @ 125 mls/hr 05/02/19 13:00 05/03/19 01:43 Nacl 0.9% 1000 Ml IV 125 mls/hr DIRECT ROMMEL Administration Methylprednisolone Sodium Succinate 60 mg 04/30/19 16:00 05/02/19 21:34 Solu-Medrol IV 60 mg Q6H ROMMEL Administration Montelukast Sodium 10 mg 04/30/19 22:00 05/02/19 21:25 Singulair PO 10 mg QHS ROMMEL Administration Ondansetron HCl 4 mg 04/28/19 02:56 05/02/19 21:25 Zofran IV 4 mg Q8H PRN Administration Nausea And Vomiting Oxycodone/Acetaminophen 2 tab 04/28/19 04:45 05/02/19 18:05 Percocet 5/325 PO 2 tab Q4H PRN Administration Pain, Moderate (4-6) Pantoprazole Sodium 40 mg 05/01/19 22:00 05/02/19 21:25 Protonix PO 40 mg BID ROMMEL Administration Pseudoephedrine/Acetam/Chlorphenir 10 ml 04/28/19 05:48 05/03/19 01:42 Robitussin Ac PO 10 ml Q4H PRN Administration Cough Sodium Chloride 10 ml 04/28/19 10:00 05/02/19 21:26 Sodium Chloride Flush Syringe 10 Ml IV 10 ml BID ROMMEL Administration Sodium Chloride 10 ml 04/28/19 02:56 Sodium Chloride Flush Syringe 10 Ml IV PRN PRN LINE FLUSH Zolpidem Tartrate 10 mg 04/28/19 17:27 05/03/19 01:42 Ambien PO 10 mg QHS PRN Administration Sleep
[2019-05-03] MEDS: TESSALON PERLES PO SCH ×3 (05:28→22:06)
[2019-05-03] MEDS: PERCOCET 5/325 PO PRN ×2 (05:28→10:31)
[2019-05-03] MEDS: SOLU-Medrol IV SCH ×3 (05:28→22:06)
[2019-05-03] MEDS: PULMICORT IH SCH ×2 (08:12→20:43)
--- NOTE | 2019-05-03 09:54 | Ultrasound Report ---
ULTRASOUND RENAL INDICATION / CLINICAL INFORMATION: Hematuria and left flank pain for 2 days. COMPARISON: None available. FINDINGS: RIGHT KIDNEY: Length = 10.2 cm. [normal > 9 cm] - Parenchymal Thickness = 1.5 cm. [normal > 1.5 cm] - Echogenicity: Normal. - Hydronephrosis: None. - Cyst or mass: No significant abnormality. - Stones: None seen. LEFT KIDNEY: Length = 11.8 cm. [normal > 9 cm] - Parenchymal Thickness = 1.3 cm. [normal > 1.5 cm] - Echogenicity: Normal. - Hydronephrosis: None. - Cyst or mass: No significant abnormality. - Stones: None seen. URINARY BLADDER: No significant abnormality. FREE FLUID: None. ADDITIONAL FINDINGS: None. IMPRESSION: No significant abnormality is identified on ultrasound. Signer Name: Gabino Alvarez Jr, MD Signed: 05/03/2019 9:49 AM Workstation Name: [id number]
[2019-05-03] MEDS ORDERED: MORPHINE IV PRN (10:00)
[2019-05-03] MEDS ORDERED: NACL 0.9% 1000 ML 1,000 ML IV ONE (10:00)
[2019-05-03] MEDS ORDERED: ROCEPHIN/NS 2 GM/100 ML 2 GM/100 ML BAG IV SCH (10:00)
[2019-05-03] MEDS: SODIUM CHLORIDE FLUSH SYRINGE 10 ML IV SCH ×2 (10:09→22:07)
[2019-05-03] MEDS: PLAQUENIL PO SCH (10:10)
[2019-05-03] MEDS: COLACE PO SCH ×2 (10:10→22:06)
[2019-05-03] MEDS: TENORMIN PO SCH (10:10)
[2019-05-03] MEDS: BABY ASPIRIN PO SCH (10:10)
[2019-05-03] MEDS: MUCINEX ER PO SCH ×2 (10:11→22:07)
[2019-05-03] MEDS: XANAX PO SCH ×2 (10:11→22:06)
[2019-05-03] MEDS: PROTONIX PO SCH ×2 (10:11→22:07)
[2019-05-03] MEDS: BUSPAR PO SCH ×2 (10:31→22:07)
--- NOTE | 2019-05-03 11:51 | Consultation ---
History of Present Illness - Reason for Consult Consult date: 05/03/19 proteinuria, other (hematuria ) Requesting physician: TERESA TANG - History of Present Illness 48 yo F with history of SLE, fibromyalgia, asthma, hypertension, CHF with normal LVEF on echo, obesity, and arrhythmia (PAC & PVC) who initially presented to [facility] ED with complaints of cough, wheezing, and difficulty breathing for the past 2 days. Patient states that his usual state of health until Saturday 04/21 when she started sneezing and coughing. She went to her PCP and was noted to be in a Lupus flare, and was given oral steroid taper, however symptoms did not improved. pt was admitted for asthma exacerbation and for IV steroids, bronchodilator therapy. pt developed gross hematuria, for which renal consult is requested. Pt reports diffuse joint pain, generalized fatigue, shortness of b reath, HALE, b/l ankle swelling. denies recent NSAIDs use or IV contrast exposure. did not have her period for > 5months Past History Past Medical History: diabetes, heart failure (EF 60-65% ), hypertension, other (Lupus, Asthma, Obesity, Fibromyalgia, Arrythmias (PAC& PVC)) Past Surgical History: Other ( endometrial ablasion, tubal ligation) Social history: denies: smoking Family history: no significant family history Medications and Allergies Allergies Allergy/AdvReac Type Severity Reaction Status Date / Time bee venom protein (honey bee) Allergy Shortness Verified 07/10/18 16:39 of Breath iv contrast Allergy Hives Uncoded 07/10/18 16:36 Home Medications Medication Instructions Recorded Confirmed Last Taken Type ALBUTEROL Inhaler(NF) [VENTOLIN 1 puff IH Q4HR PRN #1 inha 07/10/18 04/28/19 Unknown Rx Inhaler(NF)] Atenolol [Tenormin] 25 mg PO DAILY 12/28/18 04/28/19 Unknown History busPIRone [Buspar] 10 mg PO BID 12/28/18 04/28/19 Unknown History Aspirin [Aspirin BABY CHEW TAB] 81 mg PO QDAY #30 tab.chew 12/30/18 04/28/19 Unknown Rx Hydroxychloroquine [Plaquenil] 200 mg PO QDAY 30 Days tablet 12/30/18 04/28/19 Unknown Rx Prednisone [predniSONE 10 mg 10 mg PO .TAPER #1 tab.ds.pk 12/30/18 04/28/19 Unknown Rx (6-Day Pack, 21 Tabs)] Active Meds: Active Medications Acetaminophen (Tylenol) 650 mg PO Q4H PRN PRN Reason: Pain MILD(1-3)/Fever >100.5/WILLETT Albuterol/Ipratropium (Duoneb *Not For Prn Use*) 1 ampul IH Q4HRT [facility] Last Admin: 05/03/19 08:11 Dose: Not Given Documented by: Alprazolam (Xanax) 0.5 mg PO Q12HR [facility] Last Admin: 05/03/19 10:11 Dose: 0.5 mg Documented by: Aspirin (Baby Aspirin) 81 mg PO QDAY [facility] Last Admin: 05/03/19 10:10 Dose: 81 mg Documented by: Atenolol (Tenormin) 25 mg PO DAILY [facility] Last Admin: 05/03/19 10:10 Dose: 25 mg Documented by: Benzonatate (Tessalon Perles) 100 mg PO Q8HR [facility] Last Admin: 05/03/19 05:28 Dose: 100 mg Documented by: Budesonide (Pulmicort) 0.5 mg IH Q12HRT [facility] Last Admin: 05/03/19 08:12 Dose: Not Given Documented by: Buspirone HCl (Buspar) 10 mg PO BID [facility] Last Admin: 05/03/19 10:31 Dose: 10 mg Documented by: Dextrose (D50w (25gm) Syringe) 50 ml IV PRN PRN PRN Reason: Hypoglycemia Docusate Sodium (Colace) 100 mg PO BID [facility] Last Admin: 05/03/19 10:10 Dose: 100 mg Documented by: Guaifenesin (Mucinex Er) 600 mg PO BID [facility] Last Admin: 05/03/19 10:11 Dose: 600 mg Documented by: Hydralazine HCl (Apresoline) 10 mg IV Q4HR PRN PRN Reason: Blood Pressure Hydroxychloroquine Sulfate (Plaquenil) 200 mg PO QDAY [facility] Last Admin: 05/03/19 10:10 Dose: 200 mg Documented by: Sodium Chloride (Nacl 0.9% 1000 Ml) 1,000 mls @ 125 mls/hr IV DIRECT [facility] Last Admin: 05/03/19 01:43 Dose: 125 mls/hr Documented by: Ceftriaxone Sodium (Rocephin/Ns 2 Gm/100 Ml) 2 gm in 100 mls @ 200 mls/hr IV Q24HR [facility]; Protocol Methylprednisolone Sodium Succinate (Solu-Medrol) 60 mg IV Q6H [facility] Last Admin: 05/03/19 10:11 Dose: 60 mg Documented by: Montelukast Sodium (Singulair) 10 mg PO QHS [facility] Last Admin: 05/02/19 21:25 Dose: 10 mg Documented by: Morphine Sulfate (Morphine) 2 mg IV Q4H PRN PRN Reason: Pain, Moderate (4-6) Ondansetron HCl (Zofran) 4 mg IV Q8H PRN PRN Reason: Nausea And Vomiting Last Admin: 05/02/19 21:25 Dose: 4 mg Documented by: Oxycodone/Acetaminophen (Percocet 5/325) 2 tab PO Q4H PRN PRN Reason: Pain, Moderate (4-6) Last Admin: 05/03/19 10:31 Dose: 2 tab Documented by: Pantoprazole Sodium (Protonix) 40 mg PO BID [facility] Last Admin: 05/03/19 10:11 Dose: 40 mg Documented by: Pseudoephedrine/Acetam/Chlorphenir (Robitussin Ac) 10 ml PO Q4H PRN PRN Reason: Cough Last Admin: 05/03/19 01:42 Dose: 10 ml Documented by: Sodium Chloride (Sodium Chloride Flush Syringe 10 Ml) 10 ml IV BID [facility] Last Admin: 05/03/19 10:09 Dose: 10 ml Documented by: Sodium Chloride (Sodium Chloride Flush Syringe 10 Ml) 10 ml IV PRN PRN PRN Reason: LINE FLUSH Zolpidem Tartrate (Ambien) 10 mg PO QHS PRN PRN Reason: Sleep Last Admin: 05/03/19 01:42 Dose: 10 mg Documented by: Review of Systems All systems: negative Constitutional: fatigue, weakness, malaise Cardiovascular: shortness of breath, leg edema Respiratory: cough with sputum, dyspnea on exertion, wheezing, pleurisy Exam - Vital Signs Vital signs: Vital Signs Pulse Ox 97 04/27/19 22:49 - General Appearance General appearance: well-developed, well-nourished, appears stated age, obese EENT: ATNC, PERRL, mucous membranes moist Neck: Present: neck supple Respiratory: Clear to Ascultation Heart: regular, S1S2 Gastrointestinal: Present: normoactive bowel sounds, obese Integumentary: no rash, other (b/l 1+ ankle edema ) Neurologic: no focal deficit, alert and oriented x3, strength 5/5, CN 3-12 intact Psychiatric: mood/affect appropriate, cooperative Results - Lab Results 05/02/19 07:06 05/02/19 07:06 Most recent lab results ABG pH 7.336 pH Units (7.350-7.450) L 04/29/19 17:20 ABG pCO2 45.0 mm Hg 04/29/19 17:20 ABG pO2 192.1 mm Hg (80.0-90.0) H 04/29/19 17:20 ABG HCO3 23.5 mmol/L (20.0-26.0) 04/29/19 17:20 ABG O2 Saturation 99.2 % (95.0-99.0) H 04/29/19 17:20 Calcium 9.7 mg/dL (8.4-10.2) 05/02/19 07:06 Magnesium 2.30 mg/dL (1.7-2.3) 05/02/19 07:06 Laboratory Tests 04/29/19 05/01/19 05/02/19 17:20 23:27 13:50 PT 11.9 L INR 0.90 APTT 27.0 ABG pH 7.336 L ABG pCO2 45.0 ABG pO2 192.1 H ABG HCO3 23.5 ABG O2 Saturation 99.2 H ABG O2 Content 18.8 ABG Base Excess -2.4 L ABG Hemoglobin 13.4 Urine Color Yellow Urine Turbidity Slightly-cloudy Urine pH 6.0 Ur Specific [place] 1.026 Urine Protein 30 mg/dl Urine Glucose (UA) Neg Urine Ketones Neg Urine Blood Lg Urine Nitrite Neg Urine Bilirubin Neg Urine Urobilinogen < 2.0 Urine WBC (Auto) 57.0 H Urine RBC (Auto) 151.0 U Epithel Cells (Auto) 2.0 Assessment and Plan - Patient Problems (1) Hematuria Current Visit: Yes Status: Acute Plan to address problem: will check SEPIDEH w/ titer, C3/4, urine protein/cr ratio, ANCA panel. consult pending. if no urological source of bleeding found and pt develops signficant proteinuria/hematuria will consider renal biopsy. (2) SLE (systemic lupus erythematosus related syndrome) Current Visit: Yes Status: Acute Plan to address problem: cont plaquneil, pt is s/p IV solumedrol therapy (3) Acute asthma exacerbation Current Visit: Yes Status: Acute Qualifiers: Asthma severity: moderate Asthma persistence: persistent Qualified Cod e(s): J45.41 - Moderate persistent asthma with (acute) exacerbation Plan to address problem: cont IV steroids and bronchodilator therapy as per primary attending (4) Obesity hypoventilation syndrome Current Visit: No Status: Chronic
--- NOTE | 2019-05-03 13:15 | Progress Note ---
Assessment and Plan Assessment and plan: 48-year-old female with history of lupus, fibromyalgia, asthma, hypertension, CHF with normal LVEF on echo, obesity, and arrhythmia (PAC & PVC) who presents to [facility] ED with complaints of cough, wheezing, and difficulty breathing for the past 2 days. * Patient requested transfer stating that all her doctors are at [facility]. She understands that she needs to get an accepting physician. She called her insurance number which provided us with an accepting physician at [email or web address]. I called myself and spoke to the insurance company, also spoke to [facility],. After a round about call to multiple people. Patient accepted by Dr Arlette portillo. The Nursing comfort station supervisor informs me that while they await all approval and confirm that indeed the insurance company is autherizing the transfer, the patient has been given the room number [id number] in [address] and the nurse can call report to [phone]. * Again every constitution party understands that this transfer is generated by the patient and not by us, as we are able to handle her entire care * We have also advised the patient that Rheumatology does not come to the hospital but she is admaant that they see her at [facility]. * She is concerned about "lupus or vasculitis in my lungs"; CT chest is normal so I do not suspect any autoimmune lung disease; she is having CT head per primary * Reviewed 2013 [place] records, at which time she had prolonged and recurrent wheezing/SOB episodes; she had a negative work-up including CT chest and bronchoscopy at the time; she was diagnosed with vocal cord dysfunction and there were concerns from multiple physicians about psychogenic/anxiety-related components to her pulmonary symptoms; cont. anxiolytics; was on SSRI also in 2013; unsure about endpoint here * Remote hx Polysubstance abuse, cocaine, opiates and marijuana. She states no new use. Acute exacerbation asthma-Severe -Scheduled DuoNebs and Pulmicort, Albuterol prn -Pulmonary following Per- Cont. Solumedrol same dose until wheezing improves; cont. Duonebs/Pulmicort/Singulair; will need to resume a LABA/ICS at d/c -Systemic steriods -All test so far has remained negative. Patient persistent with dry cough, ?conversion disorder. -Start on hydroment -outpatient PFT -Mucinex Anxiety disorder -Continue xanax Sepsis secondary to Acute cystitis, Not POA -Start on Rocephin -Panculture Hematuria - consulted - Nephrology consulted- immunology work up ongoing -Renal us unremarkable Acute Hypoxic Respiratory Failure -CXR negative -No baseline oxygen requirements -On supplemental O2 -VBG 7.410 -Monitor saturations wean as tolerated Hypertension -Continue to monitor BP -Resume Home antihypertensive meds to optimize BP -IV antihypertensive when necessary CHF h/o -Normal LVEF 60%-65% on Echo (12/2018) -Normal thallium stress test on 12/29/18 Obesity, bmi 35 -May benefit from lifestyle and diet modifications -May benefit from outpatient weight management program History of arrhythmias (PAC and PVC) -Continuos telemetry monitoring Lupus Flare -Continue Plaquenil -On systemic steriods -Continue supportive care Hx fibromyalgia Liver mass-Prior noted. Patient following with hematology/oncology for surveillance outpatient Near syncope -fall, with Head CT negative -Reinforced again that she should not ambulate unless with assistance from nursing staff DVT PPX -SCD due to hematuria Disposition: continue inpatient care, Advised by case management that [facility] will like patient transferred to [facility] or [facility]. Will await their arrangements. History Interval history: Patient seen and examined, Persistent cough, continues to complain of generalized body pain with cough Hospitalist Physical - Physical exam Narrative exam: Gen: WDWN, NAD, Awake, Alert, Orientated, anxious HEENT: NCAT, EOMI, PERRL, OP Clear Neck: supple, no adenopathy, no thyromegaly, no JVD CVS/Heart: RRR, normal S1S2, pulses present bilaterally Chest/Lungs: diminished and coarse bs bilaterally, Symmetrical chest expansion, good air entry bilaterally GI/Abdomen: soft, NTND, good bowel sounds, no guarding or rebound /Bladder: no suprapubic tenderness, no CVA or paraspinal tenderness Extermity/Skin: no c/c/e, no obvious rash MSK: FROM x 4 Neuro: CN 2-12 grossly intact, no new focal deficits Psych: anxious - Constitutional Vitals: Temp Pulse Resp BP Pulse Ox 98.2 F 72 16 138/83 92 05/03/19 12:35 05/03/19 12:35 05/03/19 12:35 05/03/19 12:35 05/03/19 12:35 General appearance: Present: no acute distress, well-nourished Results - Labs CBC & Chem 7: 05/02/19 07:06 05/02/19 07:06 Labs: Laboratory Last Values WBC 19.8 K/mm3 (4.5-11.0) H 05/02/19 07:06 RBC 4.35 M/mm3 (3.65-5.03) 05/02/19 07:06 Hgb 13.3 gm/dl (10.1-14.3) 05/02/19 07:06 Hct 39.3 % (30.3-42.9) 05/02/19 07:06 MCV 90 fl (79-97) 05/02/19 07:06 MCH 31 pg (28-32) 05/02/19 07:06 MCHC 34 % (30-34) 05/02/19 07:06 RDW 14.0 % (13.2-15.2) 05/02/19 07:06 Plt Count 268 K/mm3 (140-440) 05/02/19 07:06 Lymph % (Auto) 11.4 % (13.4-35.0) L 04/29/19 04:17 [place] % (Auto) 6.4 % (0.0-7.3) 04/29/19 04:17 Eos % (Auto) 0.1 % (0.0-4.3) 04/29/19 04:17 Baso % (Auto) 0.1 % (0.0-1.8) 04/29/19 04:17 Lymph # 2.0 K/mm3 (1.2-5.4) 04/29/19 04:17 [place] # 1.1 K/mm3 (0.0-0.8) H 04/29/19 04:17 Eos # 0.0 K/mm3 (0.0-0.4) 04/29/19 04:17 Baso # 0.0 K/mm3 (0.0-0.1) 04/29/19 04:17 Add Manual Diff Complete 05/02/19 07:06 Total Counted 100 05/02/19 07:06 Seg Neutrophils % 82.0 % (40.0-70.0) H 04/29/19 04:17 Seg Neuts % (Manual) 70.0 % (40.0-70.0) 05/02/19 07:06 5.0 % 05/02/19 07:06 18.0 % (13.4-35.0) 05/02/19 07:06 Reactive Lymphs % (Man) 0 % 05/02/19 07:06 7.0 % (0.0-7.3) 05/02/19 07:06 0 % (0.0-4.3) 05/02/19 07:06 0 % (0.0-1.8) 05/02/19 07:06 0 % 05/02/19 07:06 0 % 05/02/19 07:06 0 % 05/02/19 07:06 0 % 05/02/19 07:06 Nucleated RBC % Not Reportable 05/02/19 07:06 Seg Neutrophils # 14.5 K/mm3 (1.8-7.7) H 04/29/19 04:17 Seg Neutrophils # Man 13.9 K/mm3 (1.8-7.7) H 05/02/19 07:06 Band Neutrophils # 1.0 K/mm3 05/02/19 07:06 3.6 K/mm3 (1.2-5.4) 05/02/19 07:06 Abs React Lymphs (Man) 0.0 K/mm3 05/02/19 07:06 1.4 K/mm3 (0.0-0.8) H 05/02/19 07:06 0.0 K/mm3 (0.0-0.4) 05/02/19 07:06 0.0 K/mm3 (0.0-0.1) 05/02/19 07:06 0.0 K/mm3 05/02/19 07:06 0.0 K/mm3 05/02/19 07:06 0.0 K/mm3 05/02/19 07:06 Blast Cells # 0.0 K/mm3 05/02/19 07:06 WBC Morphology Not Reportable 05/02/19 07:06 Hypersegmented Neuts Not Reportable 05/02/19 07:06 Hyposegmented Neuts Not Reportable 05/02/19 07:06 Hypogranular Neuts Not Reportable 05/02/19 07:06 Not Reportable 05/02/19 07:06 Not Reportable 05/02/19 07:06 Not Reportable 05/02/19 07:06 Not Reportable 05/02/19 07:06 Not Reportable 05/02/19 07:06 Not Reportable 05/02/19 07:06 Consistent w auto 05/02/19 07:06 Not Reportable 05/02/19 07:06 Plt Clumps, EDTA Not Reportable 05/02/19 07:06 Not Reportable 05/02/19 07:06 Not Reportable 05/02/19 07:06 Not Reportable 05/02/19 07:06 Plt Morphology Comment Not Reportable 05/02/19 07:06 RBC Morphology Not Reportable 05/02/19 07:06 Dimorphic RBCs Not Reportable 05/02/19 07:06 Not Reportable 05/02/19 07:06 Not Reportable 05/02/19 07:06 Not Reportable 05/02/19 07:06 Not Reportable 05/02/19 07:06 Not Reportable 05/02/19 07:06 Not Reportable 05/02/19 07:06 Not Reportable 05/02/19 07:06 Not Reportable 05/02/19 07:06 Not Reportable 05/02/19 07:06 Not Reportable 05/02/19 07:06 Not Reportable 05/02/19 07:06 Not Reportable 05/02/19 07:06 Not Reportable 05/02/19 07:06 Not Reportable 05/02/19 07:06 Not Reportable 05/02/19 07:06 Not Reportable 05/02/19 07:06 Not Reportable 05/02/19 07:06 Not Reportable 05/02/19 07:06 Not Reportable 05/02/19 07:06 Acanthocytes (Spur) Not Reportable 05/02/19 07:06 Rouleaux Not Reportable 05/02/19 07:06 Not Reportable 05/02/19 07:06 Not Reportable 05/02/19 07:06 Not Reportable 05/02/19 07:06 Not Reportable 05/02/19 07:06 Hem Pathologist Commnt No 05/02/19 07:06 PT 11.9 Sec. (12.2-14.9) L 05/01/19 23:27 INR 0.90 (0.87-1.13) 05/01/19 23:27 APTT 27.0 Sec. (24.2-36.6) 05/01/19 23:27 ABG pH 7.336 pH Units (7.350-7.450) L 04/29/19 17:20 ABG pCO2 45.0 mm Hg 04/29/19 17:20 ABG pO2 192.1 mm Hg (80.0-90.0) H 04/29/19 17:20 ABG HCO3 23.5 mmol/L (20.0-26.0) 04/29/19 17:20 ABG O2 Saturation 99.2 % (95.0-99.0) H 04/29/19 17:20 ABG O2 Content 18.8 (0.0-44) 04/29/19 17:20 ABG Base Excess -2.4 mmol/L (-2.0-3.0) L 04/29/19 17:20 ABG Hemoglobin 13.4 gm/dl (12.0-16.0) 04/29/19 17:20 ABG Carboxyhemoglobin 1.1 % (0.0-5.0) 04/29/19 17:20 ABG Methemoglobin 0.6 % (0.0-1.5) 04/29/19 17:20 VBG pH 7.410 (7.320-7.420) 04/27/19 23:05 97.4 % (95.0-99.0) 04/29/19 17:20 40 % 04/29/19 17:20 Sodium 140 mmol/L (137-145) 05/02/19 07:06 Potassium 4.9 mmol/L (3.6-5.0) 05/02/19 07:06 Chloride 100.6 mmol/L (98-107) 05/02/19 07:06 Carbon Dioxide 28 mmol/L (22-30) 05/02/19 07:06 16 mmol/L 05/02/19 07:06 BUN 18 mg/dL (7-17) H 05/02/19 07:06 0.8 mg/dL (0.7-1.2) 05/02/19 07:06 Estimated GFR > 60 ml/min 05/02/19 07:06 23 % 05/02/19 07:06 Glucose 144 mg/dL (65-100) H 05/02/19 07:06 POC Glucose 130 (70-105) H 05/01/19 08:27 Calcium 9.7 mg/dL (8.4-10.2) 05/02/19 07:06 Magnesium 2.30 mg/dL (1.7-2.3) 05/02/19 07:06 < 0.20 mg/dL (0.1-1.2) 05/02/19 07:06 AST 19 units/L (5-40) 05/02/19 07:06 ALT 14 units/L (7-56) 05/02/19 07:06 72 units/L (35-129) 05/02/19 07:06 < 0.010 ng/mL (0.00-0.029) 04/28/19 09:35 7.0 g/dL (6.3-8.2) 05/02/19 07:06 4.0 g/dL (3.9-5) 05/02/19 07:06 1.3 % 05/02/19 07:06 Yellow (Yellow) 05/02/19 13:50 Slightly-cloudy (Clear) 05/02/19 13:50 6.0 (5.0-7.0) 05/02/19 13:50 Ur Specific [place] 1.026 (1.003-1.030) 05/02/19 13:50 30 mg/dl mg/dL (Negative) 05/02/19 13:50 Neg mg/dL (Negative) 05/02/19 13:50 Neg mg/dL (Negative) 05/02/19 13:50 Lg (Negative) 05/02/19 13:50 Neg (Negative) 05/02/19 13:50 Neg (Negative) 05/02/19 13:50 < 2.0 mg/dL (<2.0) 05/02/19 13:50 Ur Leukocyte Esterase Neg (Negative) 05/02/19 13:50 57.0 /HPF (0.0-6.0) H 05/02/19 13:50 151.0 /HPF (0.0-6.0) 05/02/19 13:50 U Epithel Cells (Auto) 2.0 /HPF (0-13.0) 05/02/19 13:50 Few /HPF 05/02/19 13:50 Presumptive positive 04/28/19 08:00 Presumptive negative 04/28/19 08:00 Ur Barbiturates Screen Presumptive negative 04/28/19 08:00 Ur Phencyclidine Scrn Presumptive negative 04/28/19 08:00 Ur Amphetamines Screen Presumptive negative 04/28/19 08:00 U Benzodiazepines Scrn Presumptive negative 04/28/19 08:00 Presumptive negative 04/28/19 08:00 U Marijuana (THC) Screen Presumptive negative 04/28/19 08:00 Disclamer 04/28/19 08:00 Active Medications - Current Medications Current Medications: Generic Name Dose Route Start Last Admin Trade Name Freq PRN Reason Stop Dose Admin Acetaminophen 650 mg 04/28/19 02:56 Tylenol PO Q4H PRN Pain MILD(1-3)/Fever >100.5/WILLETT Albuterol/Ipratropium 1 ampul 04/28/19 16:00 05/03/19 08:11 Duoneb *Not For Prn Use* IH Not Given Q4HRT ROMMEL Alprazolam 0.5 mg 05/01/19 10:00 05/03/19 10:11 Xanax PO 0.5 mg Q12HR [facility] Administration Aspirin 81 mg 04/28/19 10:00 05/03/19 10:10 Baby Aspirin PO 81 mg QDAY [facility] Administration Atenolol 25 mg 04/28/19 10:00 05/03/19 10:10 Tenormin PO 25 mg DAILY [facility] Administration Benzonatate 100 mg 04/28/19 06:00 05/03/19 13:13 Tessalon Perles PO 100 mg Q8HR [facility] Administration Budesonide 0.5 mg 04/28/19 08:00 05/03/19 08:12 Pulmicort IH Not Given Q12HRT [facility] Buspirone HCl 10 mg 04/30/19 22:00 05/03/19 10:31 Buspar PO 10 mg BID [facility] Administration Dextrose 50 ml 04/28/19 03:03 D50w (25gm) Syringe IV PRN PRN Hypoglycemia Docusate Sodium 100 mg 04/28/19 10:00 05/03/19 10:10 Colace PO 100 mg BID [facility] Administration Guaifenesin 600 mg 04/28/19 10:00 05/03/19 10:11 Mucinex Er PO 600 mg BID [facility] Administration Hydralazine HCl 10 mg 04/28/19 03:16 Apresoline IV Q4HR PRN Blood Pressure Hydroxychloroquine Sulfate 200 mg 04/28/19 10:00 05/03/19 10:10 Plaquenil PO 200 mg QDAY [facility] Administration Sodium Chloride 1,000 mls @ 125 mls/hr 05/02/19 13:00 05/03/19 01:43 Nacl 0.9% 1000 Ml IV 125 mls/hr DIRECT [facility] Administration Ceftriaxone Sodium 2 gm in 100 mls @ 200 mls/hr 05/04/19 10:00 Rocephin/Ns 2 Gm/100 Ml IV Q24HR [facility] Protocol Methylprednisolone Sodium Succinate 60 mg 04/30/19 16:00 05/03/19 10:11 Solu-Medrol IV 60 mg Q6H [facility] Administration Montelukast Sodium 10 mg 04/30/19 22:00 05/02/19 21:25 Singulair PO 10 mg QHS [facility] Administration Morphine Sulfate 2 mg 05/03/19 10:00 Morphine IV Q4H PRN Pain, Moderate (4-6) Ondansetron HCl 4 mg 04/28/19 02:56 05/02/19 21:25 Zofran IV 4 mg Q8H PRN Administration Nausea And Vomiting Oxycodone/Acetaminophen 2 tab 04/28/19 04:45 05/03/19 10:31 Percocet 5/325 PO 2 tab Q4H PRN Administration Pain, Moderate (4-6) Pantoprazole Sodium 40 mg 05/01/19 22:00 05/03/19 10:11 Protonix PO 40 mg BID [facility] Administration Pseudoephedrine/Acetam/Chlorphenir 10 ml 04/28/19 05:48 05/03/19 13:13 Robitussin Ac PO 10 ml Q4H PRN Administration Cough Sodium Chloride 10 ml 04/28/19 10:00 05/03/19 10:09 Sodium Chloride Flush Syringe 10 Ml IV 10 ml BID [facility] Administration Sodium Chloride 10 ml 04/28/19 02:56 Sodium Chloride Flush Syringe 10 Ml IV PRN PRN LINE FLUSH Zolpidem Tartrate 10 mg 04/28/19 17:27 05/03/19 01:42 Ambien PO 10 mg QHS PRN Administration Sleep
--- NOTE | 2019-05-03 13:20 | Progress Note ---
Assessment and Plan Imp: 1. Severe persistent asthma with acute exac. 2. Obesity 3. GERD 4. SLE 5. Anxiety 6. SIRS Rec: 1. Cont. Solumedrol same dose until wheezing improves; cont. Duonebs/Pulmicort/Singulair; will need to resume a LABA/ICS at d/c 2. Added PPI BID 3. Cont. anti-tussives 4. She is concerned about "lupus or vasculitis in my lungs"; CT chest is normal so I do not suspect any autoimmune lung disease; CT head and Renal US are negative; for CT a/p and SEPIDEH, ANCA, complements are all pending 5. Reviewed 2013 [place] records ([facility] and [facility]), at which time she had prolonged and recurrent wheezing/SOB episodes; she had a negative work-up including CT chest and bronchoscopy at the time; she was diagnosed with vocal cord dysfunction and there were concerns from multiple physicians about psychogenic/anxiety-related components to her pulmonary symptoms; cont. anxiolytics; was on SSRI also in 2013; unsure about endpoint here 6. Leukocytosis likely due to steroids; isolated fever spike noted, blood and urine cultures pending, and placed on Rocephin per [facility] Plan of care reviewed w/ patient, she understands/agrees; family at bedside stating that we "are not doing anything for her", but patient is receiving a very extensive work-up as per above Subjective Date of service: 05/03/19 Principal diagnosis: SOB Interval history: Multiple complaints ongoing: headache, dizziness, vaginal bleeding, hematuria, cough, SOB, wheezing, chest pain due to coughing. States pulmonary symptoms marginally better only b/c of cough syrup. Continues to be anxious about specific diagnoses (e.g. "Lupus, Lupus Nephritis"). Requesting transfer to [facility], states insurance is "out of network" with [facility]. Active Medications Acetaminophen (Tylenol) 650 mg PO Q4H PRN PRN Reason: Pain MILD(1-3)/Fever >100.5/WILLETT Albuterol/Ipratropium (Duoneb *Not For Prn Use*) 1 ampul IH Q4HRT [facility] Last Admin: 05/03/19 08:11 Dose: Not Given Documented by: Alprazolam (Xanax) 0.5 mg PO Q12HR [facility] Last Admin: 05/03/19 10:11 Dose: 0.5 mg Documented by: Aspirin (Baby Aspirin) 81 mg PO QDAY [facility] Last Admin: 05/03/19 10:10 Dose: 81 mg Documented by: Atenolol (Tenormin) 25 mg PO DAILY [facility] Last Admin: 05/03/19 10:10 Dose: 25 mg Documented by: Benzonatate (Tessalon Perles) 100 mg PO Q8HR [facility] Last Admin: 05/03/19 13:13 Dose: 100 mg Documented by: Budesonide (Pulmicort) 0.5 mg IH Q12HRT [facility] Last Admin: 05/03/19 08:12 Dose: Not Given Documented by: Buspirone HCl (Buspar) 10 mg PO BID [facility] Last Admin: 05/03/19 10:31 Dose: 10 mg Documented by: Dextrose (D50w (25gm) Syringe) 50 ml IV PRN PRN PRN Reason: Hypoglycemia Docusate Sodium (Colace) 100 mg PO BID [facility] Last Admin: 05/03/19 10:10 Dose: 100 mg Documented by: Guaifenesin (Mucinex Er) 600 mg PO BID [facility] Last Admin: 05/03/19 10:11 Dose: 600 mg Documented by: Hydralazine HCl (Apresoline) 10 mg IV Q4HR PRN PRN Reason: Blood Pressure Hydroxychloroquine Sulfate (Plaquenil) 200 mg PO QDAY [facility] Last Admin: 05/03/19 10:10 Dose: 200 mg Documented by: Sodium Chloride (Nacl 0.9% 1000 Ml) 1,000 mls @ 125 mls/hr IV DIRECT [facility] Last Admin: 05/03/19 01:43 Dose: 125 mls/hr Documented by: Ceftriaxone Sodium (Rocephin/Ns 2 Gm/100 Ml) 2 gm in 100 mls @ 200 mls/hr IV Q24HR [facility]; Protocol Methylprednisolone Sodium Succinate (Solu-Medrol) 60 mg IV Q6H [facility] Last Admin: 05/03/19 10:11 Dose: 60 mg Documented by: Montelukast Sodium (Singulair) 10 mg PO QHS [facility] Last Admin: 05/02/19 21:25 Dose: 10 mg Documented by: Morphine Sulfate (Morphine) 2 mg IV Q4H PRN PRN Reason: Pain, Moderate (4-6) Ondansetron HCl (Zofran) 4 mg IV Q8H PRN PRN Reason: Nausea And Vomiting Last Admin: 05/02/19 21:25 Dose: 4 mg Documented by: Oxycodone/Acetaminophen (Percocet 5/325) 2 tab PO Q4H PRN PRN Reason: Pain, Moderate (4-6) Last Admin: 05/03/19 10:31 Dose: 2 tab Documented by: Pantoprazole Sodium (Protonix) 40 mg PO BID [facility] Last Admin: 05/03/19 10:11 Dose: 40 mg Documented by: Pseudoephedrine/Acetam/Chlorphenir (Robitussin Ac) 10 ml PO Q4H PRN PRN Reason: Cough Last Admin: 05/03/19 13:13 Dose: 10 ml Documented by: Sodium Chloride (Sodium Chloride Flush Syringe 10 Ml) 10 ml IV BID [facility] Last Admin: 05/03/19 10:09 Dose: 10 ml Documented by: Sodium Chloride (Sodium Chloride Flush Syringe 10 Ml) 10 ml IV PRN PRN PRN Reason: LINE FLUSH Zolpidem Tartrate (Ambien) 10 mg PO QHS PRN PRN Reason: Sleep Last Admin: 05/03/19 01:42 Dose: 10 mg Documented by: Objective Vital Signs - 12hr 05/03/19 05/03/19 05/03/19 03:19 05:46 05:52 Temperature Pulse Rate 70 Pulse Rate [ 104 H Bilateral] Respiratory 20 Rate Respiratory 19 Rate [Bilateral ] Blood Pressure 143/90 150/89 O2 Sat by Pulse 96 Oximetry 05/03/19 05/03/19 05/03/19 07:54 08:00 09:50 Temperature 101.4 F H Pulse Rate 93 H Pulse Rate [ 104 H Bilateral] Respiratory 16 Rate Respiratory 20 Rate [Bilateral ] Blood Pressure 136/98 O2 Sat by Pulse 90 96 Oximetry 05/03/19 05/03/19 05/03/19 10:00 10:10 12:35 Temperature 98.2 F Pulse Rate 93 H 72 Pulse Rate [ Bilateral] Respiratory 20 16 Rate Respiratory Rate [Bilateral ] Blood Pressure 136/98 138/83 O2 Sat by Pulse 92 Oximetry Constitutional: no acute distress, alert, appears uncomfortable Eyes: non-icteric ENT: oropharynx moist Neck: supple Effort: normal Ascultation: Bilateral: wheezes (cough/wheezing improve while patient is talking) Cardiovascular: regular rate and rhythm (no mrg) Gastrointestinal: normoactive bowel sounds, soft, non-distended, other (obese) Integumentary: normal Extremities: no cyanosis, no edema, pink and warm, edema Neurologic: normal mental status, non-focal exam, pupils equal and round Psychiatric: anxious CBC and BMP: 05/02/19 07:06 05/02/19 07:06 ABG, PT/INR, D-dimer: ABG ABG pH 7.336 pH Units (7.350-7.450) L 04/29/19 17:20 ABG pCO2 45.0 mm Hg 04/29/19 17:20 ABG pO2 192.1 mm Hg (80.0-90.0) H 04/29/19 17:20 ABG O2 Saturation 99.2 % (95.0-99.0) H 04/29/19 17:20 PT/INR, D-dimer PT 11.9 Sec. (12.2-14.9) L 05/01/19 23:27 INR 0.90 (0.87-1.13) 05/01/19 23:27 Abnormal lab findings: Abnormal Labs 04/27/19 04/27/19 04/29/19 23:05 23:05 04:17 WBC 17.7 H Lymph % (Auto) 11.4 L Gates % (Auto) 7.5 H Gates # 1.1 H Seg Neutrophils % 82.0 H Seg Neutrophils # 14.5 H Seg Neutrophils # Man Monocytes # (Manual) PT ABG pH ABG pO2 ABG O2 Saturation ABG Base Excess BUN Glucose 101 H POC Glucose Urine WBC (Auto) 04/29/19 04/29/19 05/01/19 04:17 17:20 08:27 WBC Lymph % (Auto) Gates % (Auto) Gates # Seg Neutrophils % Seg Neutrophils # Seg Neutrophils # Man Monocytes # (Manual) PT ABG pH 7.336 L ABG pO2 192.1 H ABG O2 Saturation 99.2 H ABG Base Excess -2.4 L BUN Glucose 121 H POC Glucose 130 H Urine WBC (Auto) 05/01/19 05/02/19 05/02/19 23:27 07:06 07:06 WBC 19.8 H Lymph % (Auto) Gates % (Auto) Gates # Seg Neutrophils % Seg Neutrophils # Seg Neutrophils # Man 13.9 H Monocytes # (Manual) 1.4 H PT 11.9 L ABG pH ABG pO2 ABG O2 Saturation ABG Base Excess BUN 18 H Glucose 144 H POC Glucose Urine WBC (Auto) 05/02/19 13:50 WBC Lymph % (Auto) Gates % (Auto) Gates # Seg Neutrophils % Seg Neutrophils # Seg Neutrophils # Man Monocytes # (Manual) PT ABG pH ABG pO2 ABG O2 Saturation ABG Base Excess BUN Glucose POC Glucose Urine WBC (Auto) 57.0 H Chest x-ray: report reviewed, image reviewed CT scan - chest: report reviewed, image reviewed
[2019-05-03 13:22] LABS: Creatinine,Urine 37.3 mg/dL (0.1-20.0)
[2019-05-03] MEDS ORDERED: HYDROMET PO PRN (13:23)
[2019-05-03 13:41] LABS: Hematocrit 37.4 % (30.3-42.9); Hemoglobin 12.1 gm/dl (10.1-14.3); Mean Corpuscular HGB Conc 32 % (30-34); Mean Corpuscular Volume 91 fl (79-97); Platelet Count 245 K/mm3 (140-440); Red Blood Count 4.09 M/mm3 (3.65-5.03); Red Cell Distribution Width 14.1 % (13.2-15.2)
[2019-05-03 14:05] LABS: BUN/Creatinine Ratio 18; Blood Urea Nitrogen 14 mg/dL (7-17); Calcium 8.3 mg/dL (8.4-10.2); Hemolysis Index 5
[2019-05-03 14:54] LABS: Total Cells Counted 100
[2019-05-03 14:55] LABS: Band Neutrophils # (Manual) 0.3 K/mm3; Basophils % (Manual) 0 % (0.0-1.8); Eosinophils % (Manual) 0 % (0.0-4.3)
[2019-05-03 15:09] LABS: Platelet Estimate Consistent w Auto
--- NOTE | 2019-05-03 17:05 | Progress Note ---
Assessment and Plan dictated check ct cytology Subjective Date of service: 05/03/19 Principal diagnosis: SOB Objective - Constitutional Vitals: Vital Signs - 12hr 05/03/19 05/03/19 05/03/19 05:46 05:52 07:54 Temperature 101.4 F H Pulse Rate 70 93 H Pulse Rate [ Bilateral] Respiratory 20 16 Rate Respiratory Rate [Bilateral ] Blood Pressure 143/90 150/89 136/98 O2 Sat by Pulse 96 90 Oximetry 05/03/19 05/03/19 05/03/19 08:00 09:50 10:00 Temperature Pulse Rate 69 Pulse Rate [ 104 H Bilateral] Respiratory 20 Rate Respiratory 20 Rate [Bilateral ] Blood Pressure O2 Sat by Pulse 96 Oximetry 05/03/19 05/03/19 10:10 12:35 Temperature 98.2 F Pulse Rate 93 H 72 Pulse Rate [ Bilateral] Respiratory 16 Rate Respiratory Rate [Bilateral ] Blood Pressure 136/98 138/83 O2 Sat by Pulse 92 Oximetry General appearance: Present: no acute distress - Respiratory Respiratory effort: normal Extremities: no ischemia - Gastrointestinal General gastrointestinal: Present: soft, non-tender - Labs CBC & Chem 7: 05/03/19 13:06 05/03/19 13:06 Labs: Abnormal lab results 05/03/19 05/03/19 05/03/19 Range/Units 12:41 13:06 13:06 WBC 17.4 H (4.5-11.0) K/mm3 Seg Neuts % (Manual) 83.0 H (40.0-70.0) % Lymphocytes % (Manual) 5.0 L (13.4-35.0) % Monocytes % (Manual) 9.0 H (0.0-7.3) % Seg Neutrophils # Man 14.4 H (1.8-7.7) K/mm3 Lymphocytes # (Manual) 0.9 L (1.2-5.4) K/mm3 Monocytes # (Manual) 1.6 H (0.0-0.8) K/mm3 Glucose 148 H (65-100) mg/dL Calcium 8.3 L (8.4-10.2) mg/dL Urine Creatinine 37.3 H (0.1-20.0) mg/dL Medications & Allergies - Medications Allergies/Adverse Reactions: Allergies bee venom protein (honey bee) Allergy (Verified 07/10/18 16:39) Shortness of Breath iv contrast Allergy (Uncoded 07/10/18 16:36) Hives Home Medications: Home Medications Medication Instructions Recorded Confirmed Last Taken Type ALBUTEROL Inhaler(NF) [VENTOLIN 1 puff IH Q4HR PRN #1 inha 07/10/18 04/28/19 Unknown Rx Inhaler(NF)] Atenolol [Tenormin] 25 mg PO DAILY 12/28/18 04/28/19 Unknown History busPIRone [Buspar] 10 mg PO BID 12/28/18 04/28/19 Unknown History Aspirin [Aspirin BABY CHEW TAB] 81 mg PO QDAY #30 tab.chew 12/30/18 04/28/19 Unknown Rx Hydroxychloroquine [Plaquenil] 200 mg PO QDAY 30 Days tablet 12/30/18 04/28/19 Unknown Rx Prednisone [predniSONE 10 mg 10 mg PO .TAPER #1 tab.ds.pk 12/30/18 04/28/19 Unknown Rx (6-Day Pack, 21 Tabs)] Active Medications: Generic Name Dose Route Start Last Admin Trade Name Freq PRN Reason Stop Dose Admin Acetaminophen 650 mg 04/28/19 02:56 Tylenol PO Q4H PRN Pain MILD(1-3)/Fever >100.5/WILLETT Albuterol/Ipratropium 1 ampul 04/28/19 16:00 05/03/19 16:46 Duoneb *Not For Prn Use* IH Not Given Q4HRT ROMMEL Alprazolam 0.5 mg 05/01/19 10:00 05/03/19 10:11 Xanax PO 0.5 mg Q12HR ROMM[facility] Administration Aspirin 81 mg 04/28/19 10:00 05/03/19 10:10 Baby Aspirin PO 81 mg QDAY ROMM[facility] Administration Atenolol 25 mg 04/28/19 10:00 05/03/19 10:10 Tenormin PO 25 mg DAILY ROMM[facility] Administration Benzonatate 100 mg 04/28/19 06:00 05/03/19 13:13 Tessalon Perles PO 100 mg Q8HR [facility] Administration Budesonide 0.5 mg 04/28/19 08:00 05/03/19 08:12 Pulmicort IH Not Given Q12HRT ROMMEL Buspirone HCl 10 mg 04/30/19 22:00 05/03/19 10:31 Buspar PO 10 mg BID ROMMEL Administration Dextrose 50 ml 04/28/19 03:03 D50w (25gm) Syringe IV PRN PRN Hypoglycemia Docusate Sodium 100 mg 04/28/19 10:00 05/03/19 10:10 Colace PO 100 mg BID ROMMEL Administration Guaifenesin 600 mg 04/28/19 10:00 05/03/19 10:11 Mucinex Er PO 600 mg BID ROMMEL Administration Hydralazine HCl 10 mg 04/28/19 03:16 Apresoline IV Q4HR PRN Blood Pressure Hydrocodone Bit/Homatropine Methylb 10 ml 05/03/19 13:23 Hydromet PO Q6H PRN Cough Hydroxychloroquine Sulfate 200 mg 04/28/19 10:00 05/03/19 10:10 Plaquenil PO 200 mg QDAY ROMM[facility] Administration Sodium Chloride 1,000 mls @ 125 mls/hr 05/02/19 13:00 05/03/19 01:43 Nacl 0.9% 1000 Ml IV 125 mls/hr DIRECT ROMM[facility] Administration Ceftriaxone Sodium 2 gm in 100 mls @ 200 mls/hr 05/04/19 10:00 Rocephin/Ns 2 Gm/100 Ml IV Q24HR [facility] Protocol Methylprednisolone Sodium Succinate 40 mg 05/03/19 22:00 Solu-Medrol IV Q8HR ROMM[facility] Montelukast Sodium 10 mg 04/30/19 22:00 05/02/19 21:25 Singulair PO 10 mg QHS [facility] Administration Morphine Sulfate 2 mg 05/03/19 10:00 05/03/19 14:35 Morphine IV 2 mg Q4H PRN Administration Pain, Moderate (4-6) Ondansetron HCl 4 mg 04/28/19 02:56 05/02/19 21:25 Zofran IV 4 mg Q8H PRN Administration Nausea And Vomiting Oxycodone/Acetaminophen 2 tab 04/28/19 04:45 05/03/19 10:31 Percocet 5/325 PO 2 tab Q4H PRN Administration Pain, Moderate (4-6) Pantoprazole Sodium 40 mg 05/01/19 22:00 05/03/19 10:11 Protonix PO 40 mg BID ROMMEL Administration Pseudoephedrine/Acetam/Chlorphenir 10 ml 04/28/19 05:48 05/03/19 13:13 Robitussin Ac PO 10 ml Q4H PRN Administration Cough Sodium Chloride 10 ml 04/28/19 10:00 05/03/19 10:09 Sodium Chloride Flush Syringe 10 Ml IV 10 ml BID ROMM[facility] Administration Sodium Chloride 10 ml 04/28/19 02:56 Sodium Chloride Flush Syringe 10 Ml IV PRN PRN LINE FLUSH Zolpidem Tartrate 10 mg 04/28/19 17:27 05/03/19 01:42 Ambien PO 10 mg QHS PRN Administration Sleep
--- NOTE | 2019-05-03 17:39 | Cat Scan Report ---
CT abdomen pelvis wo con INDICATION: hematuria. TECHNIQUE: All CT scans at this location are performed using the following dose modulation technique: Automated exposure control. CONTRAST: None. COMPARISON: None available. CT abdomen: The parenchymal organs are unremarkable in appearance other than a benign-appearing left hepatic cyst measuring 1.9 cm. The remaining parenchymal organs are unremarkable. Negative for abdominal mass, fluid or inflammation. The bowel is not dilated or thickened. Mild symmetric pleural thickening is noted at the lung bases dependently. CT PELVIS: The appendix is normal. Negative for mass, fluid collection or inflammation. Noninflamed d iverticula are noted. The bladder is grossly unremarkable. A left ovarian cyst measures 3.5 cm. IMPRESSION: 1. No etiology identified for the patient's hematuria. 2. 3.5 cm left ovarian cyst. Signer Name: Neil Benoit MD Signed: 05/03/2019 5:34 PM Workstation Name: [id number]
[2019-05-03] MEDS: SINGULAIR PO SCH (22:06)
[2019-05-04] MEDS: DUONEB *Not for PRN Use IH SCH ×5 (00:28→17:14)
--- NOTE | 2019-05-04 03:11 | Consultation ---
HISTORY OF PRESENT ILLNESS: The patient is a 48-year-old woman with history of lupus, who had some nosebleeds and vaginal bleeding and she says she has had gross hematuria. She has been on Lovenox, which was recently stopped. Urological consultation was obtained. She has significant leukopenia, fibromyalgia. PAST MEDICAL HISTORY: Heart failure, diabetes. PAST SURGICAL HISTORY: Previous endometrial ablation. FAMILY HISTORY: Negative. SOCIAL HISTORY: She is a nonsmoker. ALLERGIES: IV CONTRAST. MEDICATIONS: Prednisone, atenolol, aspirin, albuterol. REVIEW OF SYSTEMS: She has muscular pain, no flank pain. PHYSICAL EXAMINATION: GENERAL: She is awake, overweight, in no distress. ABDOMEN: Soft, nondistended. She is on her way for a CT scan. Pelvic could not be done. IMPRESSION: 1. Questionable history of stones, ? hematuria per CT scan. She may require cystoscopy as an outpatient. Her hemoglobin is stable at 12 to 13. 2. Leukocytosis. She is having a CT scan of the abdomen and pelvis. She will require followup treatment as an outpatient. We will await the CT scan. JOB# [id number] DARREN/PAMELA
[2019-05-04] MEDS: NACL 0.9% 1000 ML 1,000 ML IV SCH (05:47)
[2019-05-04] MEDS: SOLU-Medrol IV SCH (05:47)
[2019-05-04] MEDS: TESSALON PERLES PO SCH (05:47)
[2019-05-04] MEDS: PERCOCET 5/325 PO PRN (06:03)
[2019-05-04] MEDS: PULMICORT IH SCH (07:50)
[2019-05-04 09:05] VITALS: BP 150/115
[2019-05-04] MEDS: MUCINEX ER PO SCH (09:20)
[2019-05-04] MEDS: COLACE PO SCH (09:20)
[2019-05-04] MEDS: XANAX PO SCH (09:21)
[2019-05-04] MEDS: TENORMIN PO SCH (09:21)
[2019-05-04] MEDS: PROTONIX PO SCH (09:21)
[2019-05-04] MEDS: BUSPAR PO SCH (09:21)
[2019-05-04] MEDS: BABY ASPIRIN PO SCH (09:21)
[2019-05-04] MEDS: PLAQUENIL PO SCH (09:21)
[2019-05-04] MEDS: SODIUM CHLORIDE FLUSH SYRINGE 10 ML IV SCH (09:22)
[2019-05-04] MEDS ORDERED: ROCEPHIN/NS 2 GM/100 ML 2 GM/100 ML BAG IV SCH (10:00)
[2019-05-04] MEDS ORDERED: DELTASONE PO SCH (10:00)
[2019-05-04 10:41] LABS: BUN/Creatinine Ratio 21; Blood Urea Nitrogen 17 mg/dL (7-17); Calcium 8.3 mg/dL (8.4-10.2); Hematocrit 39.8 % (30.3-42.9); Hemoglobin 12.8 gm/dl (10.1-14.3); Hemolysis Index 4; Mean Corpuscular HGB Conc 32 % (30-34); Mean Corpuscular Volume 91 fl (79-97); Platelet Count 245 K/mm3 (140-440); Red Blood Count 4.39 M/mm3 (3.65-5.03)
--- NOTE | 2019-05-04 11:57 | Discharge Summary ---
Providers - Providers Date of Admission: 04/28/19 02:56 Attending physician: TERESA TANG MD 04/28/19 05:49 Consult to Physician [CONS] Routine Comment: Consulting Provider: SUSANNA LOMAX Physician Instructions: Reason For Exam: asthma 04/28/19 17:26 Consult to Physician [CONS] Routine Comment: Consulting Provider: DIPTI WILSON Physician Instructions: Reason For Exam: SLE flare, your outpatient 05/03/19 08:59 Consult to Physician [CONS] Routine Comment: Consulting Provider: BASILIO LANDAVERDE Physician Instructions: Reason For Exam: hematuria 05/03/19 09:03 Consult to Physician [CONS] Routine Comment: Consulting Provider: ROBERTO RICHTER Physician Instructions: Reason For Exam: hematuria ?lupus nephritis 05/03/19 14:46 Speech Therapy Evaluation and Treat [CONS] Routine Reason For Exam: vocal cord dysfunction [facility]: Stable Disposition: [id number]-[address] [facility] Core Measure Documentation - Palliative Care Palliative Care/ Comfort Measures: Not Applicable Exam - Constitutional Vitals: Temp Pulse Resp BP Pulse Ox 98.0 F 61 18 150/115 93 05/04/19 07:27 05/04/19 10:00 05/04/19 07:51 05/04/19 07:27 05/04/19 07:51 Plan Activity: advance as tolerated, fall precautions Diet: low fat Special Instructions: record daily BP diary Additional Instructions: Follow with primary [employer] [facility]] - 7 Days ROMY DARLING MD [Staff Physician] - 7 Days ROBERTO RICHTER MD [Staff Physician] - 7 Days BASILIO LANDAVERDE MD [Staff Physician] - 7 Days Prescriptions: Montelukast [Singulair] 10 mg PO QHS 30 Days tablet HYDROcodone/HOMATROP 5-1.5 [HYDROcodone-Homatropin 5-1.5 mg per 5 ML] 10 ml PO Q6H PRN #200 ml PRN Reason: Cough guaiFENesin ER [Mucinex ER] 600 mg PO BID #7 tablet oxyCODONE /ACETAMINOPHEN [Percocet 5/325 mg] 1 tab PO Q4H PRN #14 tablet PRN Reason: Pain, Moderate (4-6) Prednisone [predniSONE 10 mg (6-Day Pack, 21 Tabs)] 10 mg PO .TAPER #1 tab.ds.pk Pantoprazole [Protonix TAB] 40 mg PO DAILY #30 tablet Budesonide/Formoterol Fumarate [Symbicort 160-4.5 Mcg Inhaler] 10.2 gm IH BID 30 Days hfa.aer.ad ALPRAZolam [Xanax TAB] 0.5 mg PO Q12HR #10 tablet
--- NOTE | 2019-05-04 12:19 | Progress Note ---
Assessment and Plan Imp: 1. Severe persistent asthma with acute exac. 2. Obesity 3. GERD 4. SLE 5. Anxiety 6. SIRS Rec: 1. Agree w/ change to Prednisone -> would do 40mg x 3 days, 30mg x 3 days, 20mg x 3 days, 10mg x 3 days; cont. Duonebs/Pulmicort/Singulair; will need to resume a LABA/ICS at d/c, e.g. Symbicort 160/4.5 2 puffs BID 2. PPI BID 3. Cont. anti-tussives 4. She is concerned about "lupus or vasculitis in my lungs"; CT chest is normal so I do not suspect any autoimmune lung disease; CT head and Renal US are negative; CT a/p negative; f/u SEPIDEH, ANCAs, complements & f/u with Rheumatology as an outpatient 5. Reviewed 2013 [place] records ([facility] and [facility]), at which time she had prolonged and recurrent wheezing/SOB episodes; she had a negative work-up including CT chest and bronchoscopy at the time; she was diagnosed with vocal cord dysfunction and there were concerns from multiple physicians about psychogenic/anxiety-related components to her pulmonary symptoms; cont. anxiolytics; was on SSRI also in 2013 6. Leukocytosis likely due to steroids; isolated fever spike noted, blood and urine cultures NGTD -> defer need for ABX to IMS 7. Pulmonary-rai improved today, see recs per #1 Plan of care reviewed w/ patient, she understands/agrees Subjective Date of service: 05/04/19 Principal diagnosis: SOB Interval history: SOB/wheezing/cough better today. Off O2 currently. Still with dizziness and he maturia. Active Medications Acetaminophen (Tylenol) 650 mg PO Q4H PRN PRN Reason: Pain MILD(1-3)/Fever >100.5/WILLETT Albuterol/Ipratropium (Duoneb *Not For Prn Use*) 1 ampul IH Q4HRT ON LICENSE OF [facility] Last Admin: 05/04/19 07:50 Dose: 1 ampul Documented by: Alprazolam (Xanax) 0.5 mg PO Q12HR ON LICENSE OF [facility] Last Admin: 05/04/19 09:21 Dose: 0.5 mg Documented by: Aspirin (Baby Aspirin) 81 mg PO QDAY ON LICENSE OF [facility] Last Admin: 05/04/19 09:21 Dose: 81 mg Documented by: Atenolol (Tenormin) 25 mg PO DAILY ON LICENSE OF [facility] Last Admin: 05/04/19 09:21 Dose: 25 mg Documented by: Benzonatate (Tessalon Perles) 100 mg PO Q8HR ON LICENSE OF [facility] Last Admin: 05/04/19 05:47 Dose: 100 mg Documented by: Budesonide (Pulmicort) 0.5 mg IH Q12HRT ON LICENSE OF [facility] Last Admin: 05/04/19 07:50 Dose: 0.5 mg Documented by: Buspirone HCl (Buspar) 10 mg PO BID ON LICENSE OF [facility] Last Admin: 05/04/19 09:21 Dose: 10 mg Documented by: Dextrose (D50w (25gm) Syringe) 50 ml IV PRN PRN PRN Reason: Hypoglycemia Docusate Sodium (Colace) 100 mg PO BID ON LICENSE OF [facility] Last Admin: 05/04/19 09:20 Dose: 100 mg Documented by: Guaifenesin (Mucinex Er) 600 mg PO BID ON LICENSE OF [facility] Last Admin: 05/04/19 09:20 Dose: 600 mg Documented by: Hydralazine HCl (Apresoline) 10 mg IV Q4HR PRN PRN Reason: Blood Pressure Hydrocodone Bit/Homatropine Methylb (Hydromet) 10 ml PO Q6H PRN PRN Reason: Cough Hydroxychloroquine Sulfate (Plaquenil) 200 mg PO QDAY ON LICENSE OF [facility] Last Admin: 05/04/19 09:21 Dose: 200 mg Documented by: Sodium Chloride (Nacl 0.9% 1000 Ml) 1,000 mls @ 125 mls/hr IV DIRECT ON LICENSE OF [facility] Last Admin: 05/04/19 05:47 Dose: 125 mls/hr Documented by: Ceftriaxone Sodium (Rocephin/Ns 2 Gm/100 Ml) 2 gm in 100 mls @ 200 mls/hr IV Q24HR ON LICENSE OF [facility]; Protocol Last Admin: 05/04/19 09:20 Dose: 200 mls/hr Documented by: Montelukast Sodium (Singulair) 10 mg PO QHS ON LICENSE OF [facility] Last Admin: 05/03/19 22:06 Dose: 10 mg Documented by: Morphine Sulfate (Morphine) 2 mg IV Q4H PRN PRN Reason: Pain, Moderate (4-6) Last Admin: 05/03/19 14:35 Dose: 2 mg Documented by: Ondansetron HCl (Zofran) 4 mg IV Q8H PRN PRN Reason: Nausea And Vomiting Last Admin: 05/02/19 21:25 Dose: 4 mg Documented by: Oxycodone/Acetaminophen (Percocet 5/325) 2 tab PO Q4H PRN PRN Reason: Pain, Moderate (4-6) Last Admin: 05/04/19 06:03 Dose: 2 tab Documented by: Pantoprazole Sodium (Protonix) 40 mg PO BID ON LICENSE OF [facility] Last Admin: 05/04/19 09:21 Dose: 40 mg Documented by: Prednisone (Deltasone) 40 mg PO QDAY ON LICENSE OF [facility] Last Admin: 05/04/19 11:37 Dose: 40 mg Documented by: Pseudoephedrine/Acetam/Chlorphenir (Robitussin Ac) 10 ml PO Q4H PRN PRN Reason: Cough Last Admin: 05/03/19 13:13 Dose: 10 ml Documented by: Sodium Chloride (Sodium Chloride Flush Syringe 10 Ml) 10 ml IV BID ON LICENSE OF [facility] Last Admin: 05/04/19 09:22 Dose: 10 ml Documented by: Sodium Chloride (Sodium Chloride Flush Syringe 10 Ml) 10 ml IV PRN PRN PRN Reason: LINE FLUSH Zolpidem Tartrate (Ambien) 10 mg PO QHS PRN PRN Reason: Sleep Last Admin: 05/03/19 01:42 Dose: 10 mg Documented by: Objective Vital Signs - 12hr 05/04/19 05/04/19 05/04/19 00:25 03:37 04:15 Temperature 98.1 F Pulse Rate 69 Pulse Rate [ 68 70 Bilateral] Respiratory 18 Rate Respiratory 18 16 Rate [Bilateral ] Blood Pressure 137/88 O2 Sat by Pulse 94 Oximetry 05/04/19 05/04/19 05/04/19 06:03 07:27 07:51 Temperature 98.0 F Pulse Rate 73 Pulse Rate [ 68 Bilateral] Respiratory 18 18 Rate Respiratory 18 Rate [Bilateral ] Blood Pressure 150/115 O2 Sat by Pulse 91 93 Oximetry 05/04/19 10:00 Temperature Pulse Rate 61 Pulse Rate [ Bilateral] Respiratory Rate Respiratory Rate [Bilateral ] Blood Pressure O2 Sat by Pulse Oximetry Constitutional: no acute distress, alert Eyes: non-icteric ENT: oropharynx moist Neck: supple Effort: normal Ascultation: Bilateral: wheezes (better) Cardiovascular: regular rate and rhythm (no mrg) Gastrointestinal: normoactive bowel sounds, soft, non-distended, other (obese) Integumentary: normal Extremities: no cyanosis, no edema, pink and warm, edema Neurologic: normal mental status, non-focal exam, pupils equal and round Psychiatric: anxious CBC and BMP: 05/04/19 09:40 05/04/19 09:40 ABG, PT/INR, D-dimer: ABG ABG pH 7.336 pH Units (7.350-7.450) L 04/29/19 17:20 ABG pCO2 45.0 mm Hg 04/29/19 17:20 ABG pO2 192.1 mm Hg (80.0-90.0) H 04/29/19 17:20 ABG O2 Saturation 99.2 % (95.0-99.0) H 04/29/19 17:20 PT/INR, D-dimer PT 11.9 Sec. (12.2-14.9) L 05/01/19 23:27 INR 0.90 (0.87-1.13) 05/01/19 23:27 Abnormal lab findings: Abnormal Labs 04/27/19 04/27/19 04/29/19 23:05 23:05 04:17 WBC 17.7 H Lymph % (Auto) 11.4 L [place] % (Auto) 7.5 H [place] # 1.1 H Seg Neutrophils % 82.0 H Seg Neuts % (Manual) Lymphocytes % (Manual) Monocytes % (Manual) Seg Neutrophils # 14.5 H Seg Neutrophils # Man Lymphocytes # (Manual) Monocytes # (Manual) PT ABG pH ABG pO2 ABG O2 Saturation ABG Base Excess BUN Glucose 101 H POC Glucose Calcium Urine WBC (Auto) Urine Creatinine 04/29/19 04/29/19 05/01/19 04:17 17:20 08:27 WBC Lymph % (Auto) [place] % (Auto) [place] # Seg Neutrophils % Seg Neuts % (Manual) Lymphocytes % (Manual) Monocytes % (Manual) Seg Neutrophils # Seg Neutrophils # Man Lymphocytes # (Manual) Monocytes # (Manual) PT ABG pH 7.336 L ABG pO2 192.1 H ABG O2 Saturation 99.2 H ABG Base Excess -2.4 L BUN Glucose 121 H POC Glucose 130 H Calcium Urine WBC (Auto) Urine Creatinine 05/01/19 05/02/19 05/02/19 23:27 07:06 07:06 WBC 19.8 H Lymph % (Auto) [place] % (Auto) [place] # Seg Neutrophils % Seg Neuts % (Manual) Lymphocytes % (Manual) Monocytes % (Manual) Seg Neutrophils # Seg Neutrophils # Man 13.9 H Lymphocytes # (Manual) Monocytes # (Manual) 1.4 H PT 11.9 L ABG pH ABG pO2 ABG O2 Saturation ABG Base Excess BUN 18 H Glucose 144 H POC Glucose Calcium Urine WBC (Auto) Urine Creatinine 05/02/19 05/03/19 05/03/19 13:50 12:41 13:06 WBC 17.4 H Lymph % (Auto) [place] % (Auto) [place] # Seg Neutrophils % Seg Neuts % (Manual) 83.0 H Lymphocytes % (Manual) 5.0 L Monocytes % (Manual) 9.0 H Seg Neutrophils # Seg Neutrophils # Man 14.4 H Lymphocytes # (Manual) 0.9 L Monocytes # (Manual) 1.6 H PT ABG pH ABG pO2 ABG O2 Saturation ABG Base Excess BUN Glucose POC Glucose Calcium Urine WBC (Auto) 57.0 H Urine Creatinine 37.3 H 05/03/19 05/04/19 05/04/19 13:06 09:40 09:40 WBC 15.5 H Lymph % (Auto) [place] % (Auto) [place] # Seg Neutrophils % Seg Neuts % (Manual) Lymphocytes % (Manual) Monocytes % (Manual) Seg Neutrophils # Seg Neutrophils # Man Lymphocytes # (Manual) Monocytes # (Manual) PT ABG pH ABG pO2 ABG O2 Saturation ABG Base Excess BUN Glucose 148 H 184 H POC Glucose Calcium 8.3 L 8.3 L Urine WBC (Auto) Urine Creatinine Chest x-ray: report reviewed, image reviewed CT scan - chest: report reviewed, image reviewed
[2019-05-04 13:04] LABS: Band Neutrophils # (Manual) 0.2 K/mm3; Basophils % (Manual) 0 % (0.0-1.8); Eosinophils % (Manual) 0 % (0.0-4.3); Total Cells Counted 100
[2019-05-04 13:05] LABS: Platelet Estimate Consistent w Auto
--- NOTE | 2019-05-04 15:32 | Progress Note ---
Assessment and Plan - Patient Problems (1) Hematuria Current Visit: Yes Status: Acute Plan to address problem: will check SEPIDEH w/ titer, C3/4, ANCA panel. consult pending. if no urological source of bleeding found and pt develops signficant proteinuria/hematuria will consider renal biopsy. Urine protein/cr ratio however only 160mg/g. doubt acute glomerular injury. Pt can follow up with me as outpatient regarding results of above tests (2) SLE (systemic lupus erythematosus related syndrome) Current Visit: Yes Status: Acute Plan to address problem: cont plaquneil, pt is s/p IV solumedrol therapy (3) Acute asthma exacerbation Current Visit: Yes Status: Acute Qualifiers: Asthma severity: moderate Asthma persistence: persistent Qualified Code(s): J45.41 - Moderate persistent asthma with (acute) exacerbation Plan to address problem: cont IV steroids and bronchodilator therapy as per primary attending (4) Obesity hypoventilation syndrome Current Visit: No Status: Chronic Subjective Principal diagnosis: SOB Interval history: Pt awake, alert in NAD Objective - Vital Signs Vital signs: Vital Signs - 12hr 05/04/19 05/04/19 05/04/19 03:37 04:15 06:03 Temperature 98.1 F Pulse Rate 69 Pulse Rate [ 70 Bilateral] Respiratory 18 18 Rate Respiratory 16 Rate [Bilateral ] Blood Pressure 137/88 O2 Sat by Pulse 94 Oximetry 05/04/19 05/04/19 05/04/19 07:27 07:51 10:00 Temperature 98.0 F Pulse Rate 73 61 Pulse Rate [ 68 Bilateral] Respiratory 18 Rate Respiratory 18 Rate [Bilateral ] Blood Pressure 150/115 O2 Sat by Pulse 91 93 Oximetry 05/04/19 12:00 Temperature Pulse Rate Pulse Rate [ 84 Bilateral] Respiratory Rate Respiratory 18 Rate [Bilateral ] Blood Pressure O2 Sat by Pulse Oximetry - General Appearance General appearance: well-developed, well-nourished, appears stated age, obese EENT: ATNC, PERRL, mucous membranes moist Neck: no JVD Respiratory: Present: Clear to Ascultation Cardiology: regular, S1S2 Gastrointestinal: normoactive bowel sounds, obese Integumentary: no rash, other (no edema ) Neurologic: no focal deficit, alert and oriented x3, strength 5/5, CN 3-12 intact Psychiatric: mood/affect appropriate, cooperative - Lab 05/04/19 09:40 05/04/19 09:40 Most recent lab results ABG pH 7.416 pH Units (7.350-7.450) 05/04/19 08:49 ABG pCO2 41.2 mm Hg 05/04/19 08:49 ABG pO2 73.1 mm Hg (80.0-90.0) L 05/04/19 08:49 ABG HCO3 25.9 mmol/L (20.0-26.0) 05/04/19 08:49 ABG O2 Saturation 99.2 % (95.0-99.0) H 04/29/19 17:20 Calcium 8.3 mg/dL (8.4-10.2) L 05/04/19 09:40 Magnesium 2.30 mg/dL (1.7-2.3) 05/02/19 07:06 37.3 mg/dL (0.1-20.0) H 05/03/19 12:41 6 mg/dL (5-11.8) 05/03/19 12:41 Medications & Allergies - Medications Allergies/Adverse Reactions: Allergies bee venom protein (honey bee) Allergy (Verified 07/10/18 16:39) Shortness of Breath iv contrast Allergy (Uncoded 07/10/18 16:36) Hives Home Medications: Home Medications Medication Instructions Recorded Confirmed Last Taken Type ALBUTEROL Inhaler(NF) [VENTOLIN 1 puff IH Q4HR PRN #1 inha 07/10/18 04/28/19 Unknown Rx Inhaler(NF)] Atenolol [Tenormin] 25 mg PO DAILY 12/28/18 04/28/19 Unknown History busPIRone [Buspar] 10 mg PO BID 12/28/18 04/28/19 Unknown History Aspirin [Aspirin BABY CHEW TAB] 81 mg PO QDAY #30 tab.chew 12/30/18 04/28/19 Unknown Rx Hydroxychloroquine [Plaquenil] 200 mg PO QDAY 30 Days tablet 12/30/18 04/28/19 Unknown Rx ALPRAZolam [Xanax TAB] 0.5 mg PO Q12HR #10 tablet 05/04/19 Unknown Rx Budesonide/Formoterol Fumarate 10.2 gm IH BID 30 Days hfa.aer.ad 05/04/19 Unknown Rx [Symbicort 160-4.5 Mcg Inhaler] HYDROcodone/HOMATROP 5-1.5 10 ml PO Q6H PRN #200 ml 05/04/19 Unknown Rx [HYDROcodone-Homatropin 5-1.5 mg per 5 ML] Montelukast [Singulair] 10 mg PO QHS 30 Days tablet 05/04/19 Unknown Rx Pantoprazole [Protonix TAB] 40 mg PO DAILY #30 tablet 05/04/19 Unknown Rx Prednisone [predniSONE 10 mg 10 mg PO .TAPER #1 tab.ds.pk 05/04/19 Unknown Rx (6-Day Pack, 21 Tabs)] guaiFENesin ER [Mucinex ER] 600 mg PO BID #7 tablet 05/04/19 Unknown Rx oxyCODONE /ACETAMINOPHEN [Percocet 1 tab PO Q4H PRN #14 tablet 05/04/19 Unknown Rx 5/325 mg] Active Medications: Generic Name Dose Route Start Last Admin Trade Name Freq PRN Reason Stop Dose Admin Acetaminophen 650 mg 04/28/19 02:56 Tylenol PO Q4H PRN Pain MILD(1-3)/Fever >100.5/WILLETT Albuterol/Ipratropium 1 ampul 04/28/19 16:00 05/04/19 13:06 Duoneb *Not For Prn Use* IH 1 ampul Q4HRT ROMMEL Administration Alprazolam 0.5 mg 05/01/19 10:00 05/04/19 09:21 Xanax PO 0.5 mg Q12HR ROMMEL Administration Aspirin 81 mg 04/28/19 10:00 05/04/19 09:21 Baby Aspirin PO 81 mg QDAY ROMMEL Administration Atenolol 25 mg 04/28/19 10:00 05/04/19 09:21 Tenormin PO 25 mg DAILY ROMMEL Administration Benzonatate 100 mg 04/28/19 06:00 05/04/19 05:47 Tessalon Perles PO 100 mg Q8HR ROMMEL Administration Budesonide 0.5 mg 04/28/19 08:00 05/04/19 07:50 Pulmicort IH 0.5 mg Q12HRT ROMMEL Administration Buspirone HCl 10 mg 04/30/19 22:00 05/04/19 09:21 Buspar PO 10 mg BID ROMMEL Administration Dextrose 50 ml 04/28/19 03:03 D50w (25gm) Syringe IV PRN PRN Hypoglycemia Docusate Sodium 100 mg 04/28/19 10:00 05/04/19 09:20 Colace PO 100 mg BID ROMMEL Administration Guaifenesin 600 mg 04/28/19 10:00 05/04/19 09:20 Mucinex Er PO 600 mg BID ROMMEL Administration Hydralazine HCl 10 mg 04/28/19 03:16 Apresoline IV Q4HR PRN Blood Pressure Hydrocodone Bit/Homatropine Methylb 10 ml 05/03/19 13:23 Hydromet PO Q6H PRN Cough Hydroxychloroquine Sulfate 200 mg 04/28/19 10:00 05/04/19 09:21 Plaquenil PO 200 mg QDAY ROMMEL Administration Sodium Chloride 1,000 mls @ 125 mls/hr 05/02/19 13:00 05/04/19 05:47 Nacl 0.9% 1000 Ml IV 125 mls/hr DIRECT ROMMEL Administration Ceftriaxone Sodium 2 gm in 100 mls @ 200 mls/hr 05/04/19 10:00 05/04/19 09:20 Rocephin/Ns 2 Gm/100 Ml IV 200 mls/hr Q24HR ROMMEL Administration Protocol Montelukast Sodium 10 mg 04/30/19 22:00 05/03/19 22:06 Singulair PO 10 mg QHS ROMMEL Administration Morphine Sulfate 2 mg 05/03/19 10:00 05/03/19 14:35 Morphine IV 2 mg Q4H PRN Administration Pain, Moderate (4-6) Ondansetron HCl 4 mg 04/28/19 02:56 05/02/19 21:25 Zofran IV 4 mg Q8H PRN Administration Nausea And Vomiting Oxycodone/Acetaminophen 2 tab 04/28/19 04:45 05/04/19 06:03 Percocet 5/325 PO 2 tab Q4H PRN Administration Pain, Moderate (4-6) Pantoprazole Sodium 40 mg 05/01/19 22:00 05/04/19 09:21 Protonix PO 40 mg BID ROMMEL Administration Prednisone 40 mg 05/04/19 10:00 05/04/19 11:37 Deltasone PO 40 mg QDAY ROMMEL Administration Pseudoephedrine/Acetam/Chlorphenir 10 ml 04/28/19 05:48 05/03/19 13:13 Robitussin Ac PO 10 ml Q4H PRN Administration Cough Sodium Chloride 10 ml 04/28/19 10:00 05/04/19 09:22 Sodium Chloride Flush Syringe 10 Ml IV 10 ml BID ROMMEL Administration Sodium Chloride 10 ml 04/28/19 02:56 Sodium Chloride Flush Syringe 10 Ml IV PRN PRN LINE FLUSH Zolpidem Tartrate 10 mg 04/28/19 17:27 05/03/19 01:42 Ambien PO 10 mg QHS PRN Administration Sleep
[2019-05-04 15:43] LABS: ABG Base Excess TNR mmol/L (-2.0-3.0); ABG HCO3 TNR mmol/L (20.0-26.0); ABG PCO2 TNR mm Hg; ABG PO2 TNR mm Hg (80.0-90.0)
[2019-05-04 15:44] LABS: ABG PH TNR pH Units (7.350-7.450)
--- NOTE | 2019-05-04 16:58 | Progress Note ---
Assessment and Plan needs out pt cysto and follow up Subjective Date of service: 05/04/19 Principal diagnosis: SOB Objective - Constitutional Vitals: Vital Signs - 12hr 05/04/19 05/04/19 05/04/19 06:03 07:27 07:51 Temperature 98.0 F Pulse Rate 73 Pulse Rate [ 68 Bilateral] Respiratory 18 18 Rate Respiratory 18 Rate [Bilateral ] Blood Pressure 150/115 O2 Sat by Pulse 91 93 Oximetry 05/04/19 05/04/19 10:00 12:00 Temperature Pulse Rate 61 Pulse Rate [ 84 Bilateral] Respiratory Rate Respiratory 18 Rate [Bilateral ] Blood Pressure O2 Sat by Pulse Oximetry - Labs CBC & Chem 7: 05/04/19 09:40 05/04/19 09:40 Labs: Abnormal lab results 05/04/19 05/04/19 Range/Units 09:40 09:40 WBC 15.5 H (4.5-11.0) K/mm3 Seg Neuts % (Manual) 76.0 H (40.0-70.0) % Seg Neutrophils # Man 11.8 H (1.8-7.7) K/mm3 Glucose 184 H (65-100) mg/dL Calcium 8.3 L (8.4-10.2) mg/dL Medications & Allergies - Medications Allergies/Adverse Reactions: Allergies bee venom protein (honey bee) Allergy (Verified 07/10/18 16:39) Shortness of Breath iv contrast Allergy (Uncoded 07/10/18 16:36) Hives Home Medications: Home Medications Medication Instructions Recorded Confirmed Last Taken Type ALBUTEROL Inhaler(NF) [VENTOLIN 1 puff IH Q4HR PRN #1 inha 07/10/18 04/28/19 Unknown Rx Inhaler(NF)] Atenolol [Tenormin] 25 mg PO DAILY 12/28/18 04/28/19 Unknown History busPIRone [Buspar] 10 mg PO BID 12/28/18 04/28/19 Unknown History Aspirin [Aspirin BABY CHEW TAB] 81 mg PO QDAY #30 tab.chew 12/30/18 04/28/19 Unknown Rx Hydroxychloroquine [Plaquenil] 200 mg PO QDAY 30 Days tablet 12/30/18 04/28/19 Unknown Rx ALPRAZolam [Xanax TAB] 0.5 mg PO Q12HR #10 tablet 05/04/19 Unknown Rx Budesonide/Formoterol Fumarate 10.2 gm IH BID 30 Days hfa.aer.ad 05/04/19 Unknown Rx [Symbicort 160-4.5 Mcg Inhaler] HYDROcodone/HOMATROP 5-1.5 10 ml PO Q6H PRN #200 ml 05/04/19 Unknown Rx [HYDROcodone-Homatropin 5-1.5 mg per 5 ML] Montelukast [Singulair] 10 mg PO QHS 30 Days tablet 05/04/19 Unknown Rx Pantoprazole [Protonix TAB] 40 mg PO DAILY #30 tablet 05/04/19 Unknown Rx Prednisone [predniSONE 10 mg 10 mg PO .TAPER #1 tab.ds.pk 05/04/19 Unknown Rx (6-Day Pack, 21 Tabs)] guaiFENesin ER [Mucinex ER] 600 mg PO BID #7 tablet 05/04/19 Unknown Rx oxyCODONE /ACETAMINOPHEN [Percocet 1 tab PO Q4H PRN #14 tablet 05/04/19 Unknown Rx 5/325 mg] Active Medications: Generic Name Dose Route Start Last Admin Trade Name Freq PRN Reason Stop Dose Admin Acetaminophen 650 mg 04/28/19 02:56 Tylenol PO Q4H PRN Pain MILD(1-3)/Fever >100.5/WILLETT Albuterol/Ipratropium 1 ampul 04/28/19 16:00 05/04/19 13:06 Duoneb *Not For Prn Use* IH 1 ampul Q4HRT ROMMEL Administration Alprazolam 0.5 mg 05/01/19 10:00 05/04/19 09:21 Xanax PO 0.5 mg Q12HR ROMMEL Administration Aspirin 81 mg 04/28/19 10:00 05/04/19 09:21 Baby Aspirin PO 81 mg QDAY ROMMEL Administration Atenolol 25 mg 04/28/19 10:00 05/04/19 09:21 Tenormin PO 25 mg DAILY ROMMEL Administration Benzonatate 100 mg 04/28/19 06:00 05/04/19 05:47 Tessalon Perles PO 100 mg Q8HR ROMMEL Administration Budesonide 0.5 mg 04/28/19 08:00 05/04/19 07:50 Pulmicort IH 0.5 mg Q12HRT ROMMEL Administration Buspirone HCl 10 mg 04/30/19 22:00 05/04/19 09:21 Buspar PO 10 mg BID ROMMEL Administration Dextrose 50 ml 04/28/19 03:03 D50w (25gm) Syringe IV PRN PRN Hypoglycemia Docusate Sodium 100 mg 04/28/19 10:00 05/04/19 09:20 Colace PO 100 mg BID ROMMEL Administration Guaifenesin 600 mg 04/28/19 10:00 05/04/19 09:20 Mucinex Er PO 600 mg BID ROMMEL Administration Hydralazine HCl 10 mg 04/28/19 03:16 Apresoline IV Q4HR PRN Blood Pressure Hydrocodone Bit/Homatropine Methylb 10 ml 05/03/19 13:23 Hydromet PO Q6H PRN Cough Hydroxychloroquine Sulfate 200 mg 04/28/19 10:00 05/04/19 09:21 Plaquenil PO 200 mg QDAY ROMMEL Administration Sodium Chloride 1,000 mls @ 125 mls/hr 05/02/19 13:00 05/04/19 05:47 Nacl 0.9% 1000 Ml IV 125 mls/hr DIRECT ROMMEL Administration Ceftriaxone Sodium 2 gm in 100 mls @ 200 mls/hr 05/04/19 10:00 05/04/19 09:20 Rocephin/Ns 2 Gm/100 Ml IV 200 mls/hr Q24HR ROMMEL Administration Protocol Montelukast Sodium 10 mg 04/30/19 22:00 05/03/19 22:06 Singulair PO 10 mg QHS ROMMEL Administration Morphine Sulfate 2 mg 05/03/19 10:00 05/03/19 14:35 Morphine IV 2 mg Q4H PRN Administration Pain, Moderate (4-6) Ondansetron HCl 4 mg 04/28/19 02:56 05/02/19 21:25 Zofran IV 4 mg Q8H PRN Administration Nausea And Vomiting Oxycodone/Acetaminophen 2 tab 04/28/19 04:45 05/04/19 06:03 Percocet 5/325 PO 2 tab Q4H PRN Administration Pain, Moderate (4-6) Pantoprazole Sodium 40 mg 05/01/19 22:00 05/04/19 09:21 Protonix PO 40 mg BID ROMMEL Administration Prednisone 40 mg 05/04/19 10:00 05/04/19 11:37 Deltasone PO 40 mg QDAY ROMMEL Administration Pseudoephedrine/Acetam/Chlorphenir 10 ml 04/28/19 05:48 05/03/19 13:13 Robitussin Ac PO 10 ml Q4H PRN Administration Cough Sodium Chloride 10 ml 04/28/19 10:00 05/04/19 09:22 Sodium Chloride Flush Syringe 10 Ml IV 10 ml BID ROMMEL Administration Sodium Chloride 10 ml 04/28/19 02:56 Sodium Chloride Flush Syringe 10 Ml IV PRN PRN LINE FLUSH Zolpidem Tartrate 10 mg 04/28/19 17:27 05/03/19 01:42 Ambien PO 10 mg QHS PRN Administration Sleep
--- NOTE | 2019-05-04 17:26 | Progress Note ---
Assessment and Plan - Patient Problems (1) Acute asthma exacerbation Current Visit: Yes Status: Acute Qualifiers: Asthma severity: moderate Asthma persistence: persistent Qualified Code(s): J45.41 - Moderate persistent asthma with (acute) exacerbation Plan to address problem: Follow pulm. (2) Autoimmune disease Current Visit: No Status: Chronic Plan to address problem: Continue steroids/plaquinil (3) HALE (dyspnea on exertion) Current Visit: No Status: Acute Plan to address problem: Follow pulm Residual wheezing. Subjective Date of service: 05/04/19 Principal diagnosis: SOB Interval history: Patient seen, resting in bed, NM study reviewed, and NL.labs reviewed. Patient seen.examined, resting in bed, c/o still not confortable, as far as her pulm is concerned, is still SOB. The primary team/pulmonary to be called, for adjustment of her pulm care. Patient seen/examined, resting in bed, c/o having vaginal/ urine bleed with any stress such as coughing. She has been on LMWH, and ASA.Will check coags, and adjust. I am told that her anticoags, are already on hold.Check h/h now to make sure h/h did not drop. patient seen, and i had spoken to The primary team earlier, notes reviewed, concerning transfer to [facility].As per the primary, and the records, w/up here so far negative. Patient asleep, but easily aroused. no new issues since last night. rec remains either to get urology to see her, since she is insisting that she is bleeding into her urine.or just transfer out if her insurance is telling her that she may get transfer to another hospital of her choice. Patient seen, resting in bed, labs/ notes/other consultants reviewed, case d/w patient.Disposition as per you. Objective - Constitutional Vitals: Vital Signs - 12hr 05/04/19 05/04/19 05/04/19 06:03 07:27 07:51 Temperature 98.0 F Pulse Rate 73 Pulse Rate [ 68 Bilateral] Respiratory 18 18 Rate Respiratory 18 Rate [Bilateral ] Blood Pressure 150/115 O2 Sat by Pulse 91 93 Oximetry 05/04/19 05/04/19 10:00 12:00 Temperature Pulse Rate 61 Pulse Rate [ 84 Bilateral] Respiratory Rate Respiratory 18 Rate [Bilateral ] Blood Pressure O2 Sat by Pulse Oximetry General appearance: Present: mild distress - Respiratory Respiratory: bilateral: wheezing - Breasts Breasts: deferred - Gastrointestinal Rectal Exam: deferred - Genitourinary Female genitourinary: deferred - Labs CBC & Chem 7: 05/04/19 09:40 05/04/19 09:40 Labs: Abnormal lab results 05/04/19 05/04/19 Range/Units 09:40 09:40 WBC 15.5 H (4.5-11.0) K/mm3 Seg Neuts % (Manual) 76.0 H (40.0-70.0) % Seg Neutrophils # Man 11.8 H (1.8-7.7) K/mm3 Glucose 184 H (65-100) mg/dL Calcium 8.3 L (8.4-10.2) mg/dL
[2019-05-04 22:44] LABS: ABG Methemoglobin TNR % (0.0-1.5); ABG Oxygen Saturation TNR % (95.0-99.0)
[2019-05-07 21:20] LABS: Myeloperoxidase Antibody <1.0 AI (<1.0)
== END 2019-05-04 18:00 | disposition home health service (06) | DRG 189 ==
LOC: ED 22:35 → 4A 04-28 02:56
PROVIDERS: ADMIT Internal Medicine; ATTEND Internal Medicine
PROC: 4A033R1 Measurement of Arterial Saturation, Peripheral, Percutaneous Approach (ICD-10-PCS; principal; 2019-04-29)
DX: J96.01 Acute respiratory failure with hypoxia (principal); E66.2 Morbid (severe) obesity with alveolar hypoventilation; N30.01 Acute cystitis with hematuria; J45.41 Moderate persistent asthma with (acute) exacerbation; M79.7 Fibromyalgia; F14.10 Cocaine abuse, uncomplicated; F12.10 Cannabis abuse, uncomplicated; F11.10 Opioid abuse, uncomplicated; M32.9 Systemic lupus erythematosus, unspecified; I50.9 Heart failure, unspecified; I11.0 Hypertensive heart disease with heart failure; E66.9 Obesity, unspecified; Z68.34 Body mass index [BMI] 34.0-34.9, adult; E11.9 Type 2 diabetes mellitus without complications; F41.9 Anxiety disorder, unspecified; K21.9 Gastro-esophageal reflux disease without esophagitis; R16.0 Hepatomegaly, not elsewhere classified; R55 Syncope and collapse; M35.9 Systemic involvement of connective tissue, unspecified
CPT/HCPCS: 36415; 36600; 70450; 71046; 71250; 74176; 76770; 78227; 80048; 80053; 80307; 81001; 82570; 82803; 82805; 82962; 83735; 84156; 84484; 85007; 85014; 85018; 85025; 85610; 85730; 86021; 86038; 86160; 87040; 87086; 93005; 93010; 93306; 94640; 94644; 94760; G0378; A9537; J0696; J1650; J2060; J2270; J2405; J2805; J2930; J3105; J3475; J7030; J7512

== ENCOUNTER 2019-10-07 13:02 | Inpatient (IN) | payer OTHER ==
[2019-10-07] MEDS ORDERED: LIP THERAPY VASELINE TP PRN (13:13)
[2019-10-07] MEDS ORDERED: MINERAL OIL/PETROLATUM, WHITE OPHTH OINT 3.5 GM OU PRN (13:13)
--- NOTE | 2019-10-07 13:38 | XRay Report ---
CHEST 1 VIEW INDICATION / CLINICAL INFORMATION: ETT placement. COMPARISON: 04/28/2019 FINDINGS: SUPPORT DEVICES: Endotracheal tube is positioned 3 cm above the hali. Nasogastric tube tip is not identified but the position is subdiaphragmatic. HEART / MEDIASTINUM: No significant abnormality. LUNGS / PLEURA: No significant pulmonary or pleural abnormality. No pneumothorax. ADDITIONAL FINDINGS: No significant additional findings. IMPRESSION: 1. No acute findings. Signer Name: Dong Gee MD Signed: 10/07/2019 1:34 PM Workstation Name: [id number]
[2019-10-07 14:21] LABS: Bilirubin,Urine NEG (Negative); Blood,Urine NEG (Negative); Color,Urine Yellow (Yellow); Mucus,Urine 3+ /HPF; Urobilinogen,Urine < 2.0 mg/dL (<2.0)
[2019-10-07 14:33] LABS: ABG Base Excess 1.1 mmol/L (-2.0-3.0); ABG Methemoglobin 0.6 % (0.0-1.5); ABG Oxygen Saturation 98.9 % (95.0-99.0); ABG PCO2 37.7 mm Hg; ABG PH 7.439 pH Units (7.350-7.450); ABG PO2 152.2 mm Hg (80.0-90.0)
[2019-10-07 14:43] LABS: Amphetamine Screen,Urine PRESUMPTIVE NEGATIVE; Cannabinoid Screen,Urine PRESUMPTIVE NEGATIVE; Methadone Screen,Urine PRESUMPTIVE NEGATIVE; Opiate Screen,Urine PRESUMPTIVE NEGATIVE
[2019-10-07 14:56] LABS: Benzodiazepines Screen,Urine PRESUMPTIVE POSITIVE; Cocaine Screen,Urine PRESUMPTIVE POSITIVE
[2019-10-07] MEDS ORDERED: MIDAZOLAM 5 MG/5 ML INJ MDV IV ONE (15:09)
[2019-10-07] MEDS: MIDAZOLAM 2 MG/2 ML INJ IV PRN ×2 (15:12→15:30)
--- NOTE | 2019-10-07 15:13 | Emergency Department Report ---
HPI - General Chief Complaint: Overdose Time Seen by Provider: 10/07/19 13:11 - HPI HPI: 49-year-old female presents to the emergency department by EMS from home unresponsive with an alleged overdose on cocaine and benzodiazepines. Unknown how much of each the patient has taken or used. The patient was receiving bag valve ventilation due to her unresponsiveness upon arrival. She has a poor historian secondary to her current medical condition. In reviewing the patient's previous visits and charts, she appears to have history of asthma, CHF and lupus. The patient was given a total of 4 mg of Narcan by EMS without much improvement. ED Past Medical Hx - Past Medical History Previous Medical History?: Yes Hx Hypertension: Yes Hx Congestive Heart Failure: Yes Hx Diabetes: No Hx Asthma: Yes Hx COPD: No Additional medical history: Lupus - Surgical History Past Surgical History?: Yes Additional Surgical History: tubal ligation. endometrial ablasion - Social History Smoking Status: Unknown if ever smoked Substance Use Type: Cocaine - Medications Home Medications: Home Medications Medication Instructions Recorded Confirmed Last Taken Type ALBUTEROL Inhaler(NF) [VENTOLIN 1 puff IH Q4HR PRN #1 inha 07/10/18 04/28/19 Unknown Rx Inhaler(NF)] atenoloL [Tenormin] 25 mg PO DAILY 12/28/18 04/28/19 Unknown History busPIRone [Buspar] 10 mg PO BID 12/28/18 04/28/19 Unknown History Aspirin [Aspirin BABY CHEW TAB] 81 mg PO QDAY #30 tab.chew 12/30/18 04/28/19 Unknown Rx Hydroxychloroquine [Plaquenil] 200 mg PO QDAY 30 Days tablet 12/30/18 04/28/19 Unknown Rx ALPRAZolam [Xanax TAB] 0.5 mg PO Q12HR #10 tablet 05/04/19 Unknown Rx Budesonide/Formoterol Fumarate 10.2 gm IH BID 30 Days hfa.aer.ad 05/04/19 Unknown Rx [Symbicort 160-4.5 Mcg Inhaler] HYDROcodone/HOMATROP 5-1.5 10 ml PO Q6H PRN #200 ml 05/04/19 Unknown Rx [HYDROcodone-Homatropin 5-1.5 mg per 5 ML] Montelukast [Singulair] 10 mg PO QHS 30 Days tablet 05/04/19 Unknown Rx Pantoprazole [Protonix TAB] 40 mg PO DAILY #30 tablet 05/04/19 Unknown Rx Prednisone [predniSONE 10 mg 10 mg PO .TAPER #1 tab.ds.pk 05/04/19 Unknown Rx (6-Day Pack, 21 Tabs)] guaiFENesin ER [Mucinex ER] 600 mg PO BID #7 tablet 05/04/19 Unknown Rx oxyCODONE /ACETAMINOPHEN [Percocet 1 tab PO Q4H PRN #14 tablet 05/04/19 Unknown Rx 5/325 mg] ED Review of Systems ROS: Stated complaint: OVERDOSE Other details as noted in HPI Comment: Unobtainable due to pts medical conditions Physical Exam - Physical Exam Vital Signs: Vital Signs 10/07/19 10/07/19 10/07/19 13:15 13:29 13:30 Pulse Rate 116 H 95 H 94 H Respiratory 14 20 Rate Blood Pressure 219/139 166/98 166/99 O2 Sat by Pulse 100 100 100 Oximetry 10/07/19 10/07/19 10/07/19 13:45 14:01 14:15 Pulse Rate 88 92 H 92 H Respiratory 20 20 21 Rate Blood Pressure 155/102 215/129 206/141 O2 Sat by Pulse 100 100 100 Oximetry Physical Exam: GENERAL: Patient is ill appearing and unresponsive. HEENT: Normocephalic. Atraumatic. Patient has moist mucous membranes. EYES: Pupils equal and reactive to light bilaterally. NECK: Supple. Trachea is midline. CHEST/LUNGS: Clear to auscultation. Shallow snoring respirations. There is respiratory distress noted. HEART/CARDIOVASCULAR: Regular. There is no tachycardia. There is no murmur. ABDOMEN: Abdomen is soft, nontender. Patient has normal bowel sounds. There is no abdominal distention. SKIN:Skin is warm and dry. . NEURO: The patient is unresponsive to verbal and tactile stimuli. She is not following any commands. MUSCULOSKELETAL: There is no tenderness or deformity. There is no evidence of ac umair injury. ED Course Vital Signs 10/07/19 10/07/19 10/07/19 13:15 13:29 13:30 Pulse Rate 116 H 95 H 94 H Respiratory 14 20 Rate Blood Pressure 219/139 166/98 166/99 O2 Sat by Pulse 100 100 100 Oximetry 10/07/19 10/07/19 10/07/19 13:45 14:01 14:15 Pulse Rate 88 92 H 92 H Respiratory 20 20 21 Rate Blood Pressure 155/102 215/129 206/141 O2 Sat by Pulse 100 100 100 Oximetry - ABG Interpretation Ph: 7.439 PCO2: 37 PO2: 152 Bicarbonate: 25 Interpretation: normal - Intubation Time Out Performed: Yes Sedative: Etomidate Mg Given: 20 Paralytic: Rocuronium Mg Given: 90 Laryngoscope: Jenn Size: 4 ET Tube Size: 7.5 Tube Secured Depth (cm): 22 Tube Secured Location: teeth Tube Placement Confirmation: visualized tube passing t, equal breath sounds bilat, no breath sounds over epi, confirmation by capnometr Patient Tolerated Procedure: well Intubation Complications: none ED Medical Decision Making - Lab Data Result diagrams: 10/08/19 03:59 10/08/19 03:59 - EKG Data -: EKG Interpreted by Me EKG shows normal: sinus rhythm, axis, intervals, QRS complexes, ST-T waves Rate: normal - EKG Data When compared to previous EKG there are: previous EKG unavailable Interpretation: normal EKG - Radiology Data Radiology results: report reviewed, image reviewed interpreted by me: Chest x-ray shows appropriate placement of the ET tube. No pneumothorax, pleural effusions or pneumonia. NONENHANCED CT SCAN OF THE HEAD: INDICATION / CLINICAL INFORMATION: 49 years Female; MAIN: Altered mental status VENT PT. TECHNIQUE: Routine CT head without contrast. All CT scans at this location are performed using CT dose reduction for ALARA by means of automated exposure control. COMPARISON: CT scan of the head from 05/02/2019 FINDINGS: BRAIN / INTRACRANIAL CONTENTS: Endotracheal tube is seen. No acute hemorrhage, mass effect, midline shift, hydrocephalus, or acute, large territorial infarct. No chronic infarct or focal atrophy. Normal brain volume and ventricular/sulcal size for age. No significant white matter abnormality. Globus pallidus in the basal ganglia structures are normal. CRANIOCERVICAL JUNCTION: No significant abnormality. ORBITS: No significant abnormality of visualized orbits. SINUSES / MASTOIDS: Mucosal thickening in the ethmoid air cells; small amount of fluid accumulation in both sphenoid sinuses ADDITIONAL FINDINGS: None. IMPRESSION: Normal nonenhanced CT scan of the brain that remains unchanged since 05/02/2019. Signer Name: Mikel Acosta MD - Medical Decision Making This patient presents after an alleged overdose on cocaine and Xanax. She does present with some respiratory distress with shallow snoring respirations and some bradypnea. For this reason the patient was intubated. Accu-Chek shows a blood sugar of 87. Urine drug screen came back positive for cocaine and benzodiazepines. No signs of any urinary tract infection. The patient came int o the emergency department almost completely unresponsive, at this time to her ED course the patient is still altered but heart to keep sedated while on the vent. We have just obtained blood to send to the lab. The patient will have a CT scan of the head without contrast. The patient has been evaluated by the admitting hospitalist who has accepted the patient for admission pending the results of the CT scan of the head. If there are signs of a brain bleed or some type of mass with edema and shift, then the patient may need transfer to another facility with neurosurgical capabilities. Otherwise, the patient will be admitted to this hospital for further evaluation and treatment. - Differential Diagnosis drug overdose, CVA, hypoglycemia, dysrhythmia Critical Care Time: Yes Critical care time in (mins) excluding proc time.: 45 Critical care attestation.: If time is entered above; I have spent that time in minutes in the direct care of this critically ill patient, excluding procedure time. Critical care time was spent on this patient and doing her initial evaluation, multiple re- evaluations, ordering and interpretation of labs and imaging, sedation and treatment of her hypertension. This does not include the time spent doing the intubation procedure. Critical Care Time: 45 minutes ED Disposition Clinical Impression: Cocaine abuse, Benzodiazepine abuse Acute respiratory failure Qualifiers: Respiratory failure complication: unspecified whether with hypoxia or hypercapnia Qualified Code(s): J96.00 - Acute respiratory failure, unspecified whether with hypoxia or hypercapnia Disposition: 09 OP ADMIT IP TO THIS HOSP Is pt being admited?: Yes Condition: Serious Time of Disposition: 15:13
[2019-10-07 15:58] LABS: Basophils # (Auto) 0.1 K/mm3 (0.0-0.1); Basophils % (Auto) 0.7 % (0.0-1.8); Eosinophils # (Auto) 0.1 K/mm3 (0.0-0.4); Eosinophils % (Auto) 1.5 % (0.0-4.3); Hematocrit 40.9 % (30.3-42.9); Lymphocytes # (Auto) 1.6 K/mm3 (1.2-5.4); Mean Corpuscular HGB Conc 34 % (30-34); Mean Corpuscular Volume 89 fl (79-97); Monocytes # (Auto) 0.8 K/mm3 (0.0-0.8); Monocytes % (Auto) 8.5 % (0.0-7.3); Platelet Count 208 K/mm3 (140-440); Red Blood Count 4.58 M/mm3 (3.65-5.03); Red Cell Distribution Width 13.7 % (13.2-15.2)
[2019-10-07 16:18] LABS: Alanine Aminotransferase 9 units/L (7-56); Albumin 4.3 g/dL (3.9-5); BUN/Creatinine Ratio 13; Blood Urea Nitrogen 8 mg/dL (7-17); Hemolysis Index 20
[2019-10-07] MEDS: MIDAZOLAM 100 MG in SODIUM CHLORIDE 0.9% 80 ML IV SCH (16:30)
--- NOTE | 2019-10-07 17:02 | Cat Scan Report ---
NONENHANCED CT SCAN OF THE HEAD: INDICATION / CLINICAL INFORMATION: 49 years Female; MAIN: Altered mental status VENT PT. TECHNIQUE: Routine CT head without contrast. All CT scans at this location are performed using CT dos e reduction for ALARA by means of automated exposure control. COMPARISON: CT scan of the head from 05/02/2019 FINDINGS: BRAIN / INTRACRANIAL CONTENTS: Endotracheal tube is seen. No acute hemorrhage, mass effect, midline shift, hydrocephalus, or acute, large territorial infarct. No chronic infarct or focal atrophy. Normal brain volume and ventricular/sulcal size for age. No sign ificant white matter abnormality. Globus pallidus in the basal ganglia structures are normal. CRANIOCERVICAL JUNCTION: No significant abnormality. ORBITS: No significant abnormality of visualized orbits. SINUSES / MASTOIDS: Mucosal thickening in the ethmoid air cells; small amount of fluid accumulation i n both sphenoid sinuses ADDITIONAL FINDINGS: None. IMPRESSION: Normal nonenhanced CT scan of the brain that remains unchanged since 05/02/2019. Signer Name: Mikel Acosta MD Signed: 10/07/2019 4:58 PM Workstation Name: [id number]
--- NOTE | 2019-10-07 19:34 | History and Physical Report ---
History of Present Illness Date of examination: 10/07/19 Date of admission: 10/07/2019 Chief complaint: Overdose on Cocaine and xanx History of present illness: 49-year-old female presents to the emergency department by EMS from home unresponsive with an alleged overdose on cocaine and benzodiazepines. Unknown how much of each the patient has taken or used. The patient was receiving bag valve ventilation due to her unresponsiveness upon arrival. She i s a poor historian secondary to her current medical condition. In reviewing the patient's previous visits and charts, she appears to have history of asthma, CHF and [place]. The patient was given a total of 4 mg of Narcan by EMS without much improvement. Past Medical History Previous Medical History?: Yes Hypertension: Yes Congestive Heart Failure: Yes Asthma: Yes Additional medical history: Lupus Surgical History Past Surgical History?: Yes Additional Surgical History: tubal ligation. endometrial ablasion Social History Smoking Status: Unknown if ever smoked Substance Use Type: Cocaine Family History Unobtainable Medications Home Medications: Home Medications Medication Instructions Recorded Confirmed Last Taken Type ALBUTEROL Inhaler(NF) [VENTOLIN 1 puff IH Q4HR PRN #1 inha 07/10/18 04/28/19 Unknown Rx Inhaler(NF)] atenoloL [Tenormin] 25 mg PO DAILY 12/28/18 04/28/19 Unknown History busPIRone [Buspar] 10 mg PO BID 12/28/18 04/28/19 Unknown History Aspirin [Aspirin BABY CHEW TAB] 81 mg PO QDAY #30 tab.chew 12/30/18 04/28/19 Unknown Rx Hydroxychloroquine [Plaquenil] 200 mg PO QDAY 30 Days tablet 12/30/18 04/28/19 Unknown Rx ALPRAZolam [Xanax TAB] 0.5 mg PO Q12HR #10 tablet 05/04/19 Unknown Rx Budesonide/Formoterol Fumarate 10.2 gm IH BID 30 Days hfa.aer.ad 05/04/19 Unknown Rx [Symbicort 160-4.5 Mcg Inhaler] HYDROcodone/HOMATROP 5-1.5 10 ml PO Q6H PRN #200 ml 05/04/19 Unknown Rx [HYDROcodone-Homatropin 5-1.5 mg per 5 ML] Montelukast [Singulair] 10 mg PO QHS 30 Days tablet 05/04/19 Unknown Rx Pantoprazole [Protonix TAB] 40 mg PO DAILY #30 tablet 05/04/19 Unknown Rx Prednisone [predniSONE 10 mg 10 mg PO .TAPER #1 tab.ds.pk 05/04/19 Unknown Rx (6-Day Pack, 21 Tabs)] guaiFENesin ER [Mucinex ER] 600 mg PO BID #7 tablet 05/04/19 Unknown Rx oxyCODONE /ACETAMINOPHEN [Percocet 1 tab PO Q4H PRN #14 tablet 05/04/19 Unknown Rx 5/325 mg] Review of Systems ROS: Stated complaint: OVERDOSE Other details as noted in HPI Comment: Unobtainable due to pts medical conditions Medications and Allergies Allergies Allergy/AdvReac Type Severity Reaction Status Date / Time bee venom protein (honey bee) Allergy Shortness Verified 07/10/18 16:39 of Breath iv contrast Allergy Hives Uncoded 07/10/18 16:36 Home Medications Medication Instructions Recorded Confirmed Last Taken Type ALBUTEROL Inhaler(NF) [VENTOLIN 1 puff IH Q4HR PRN #1 inha 07/10/18 04/28/19 Unknown Rx Inhaler(NF)] atenoloL [Tenormin] 25 mg PO DAILY 12/28/18 04/28/19 Unknown History busPIRone [Buspar] 10 mg PO BID 12/28/18 04/28/19 Unknown History Aspirin [Aspirin BABY CHEW TAB] 81 mg PO QDAY #30 tab.chew 12/30/18 04/28/19 Unknown Rx Hydroxychloroquine [Plaquenil] 200 mg PO QDAY 30 Days tablet 12/30/18 04/28/19 Unknown Rx ALPRAZolam [Xanax TAB] 0.5 mg PO Q12HR #10 tablet 05/04/19 Unknown Rx Budesonide/Formoterol Fumarate 10.2 gm IH BID 30 Days hfa.aer.ad 05/04/19 Unknown Rx [Symbicort 160-4.5 Mcg Inhaler] HYDROcodone/HOMATROP 5-1.5 10 ml PO Q6H PRN #200 ml 05/04/19 Unknown Rx [HYDROcodone-Homatropin 5-1.5 mg per 5 ML] Montelukast [Singulair] 10 mg PO QHS 30 Days tablet 09/05/19 Unknown Rx Pantoprazole [Protonix TAB] 40 mg PO DAILY #30 tablet 05/04/19 Unknown Rx Prednisone [predniSONE 10 mg 10 mg PO .TAPER #1 tab.ds.pk 05/04/19 Unknown Rx (6-Day Pack, 21 Tabs)] guaiFENesin ER [Mucinex ER] 600 mg PO BID #7 tablet 05/04/19 Unknown Rx oxyCODONE /ACETAMINOPHEN [Percocet 1 tab PO Q4H PRN #14 tablet 05/04/19 Unknown Rx 5/325 mg] Active Meds: Active Medications Hydrophilic Ointment (Vaseline Lip Therapy) 1 applic TP Q2HR PRN PRN Reason: Dry Lips Propofol (Diprivan 10 Mg/Ml) 1,000 mg in 100 mls @ 3.249 mls/hr IV TITR ROMMEL; Protocol Last Admin: 10/07/19 16:58 Dose: 50 mcg/kg/min, 32.49 mls/hr Documented by: Midazolam HCl 100 mg/ Sodium (Chloride) 100 mls @ 2 mls/hr IV TITR ROMMEL; Protocol Last Admin: 10/07/19 16:30 Dose: 2 mg/hr, 2 mls/hr Documented by: Midazolam HCl (Versed) 2 mg IV Q10MIN PRN PRN Reason: Sedation Last Admin: 10/07/19 15:30 Dose: 2 mg Documented by: Multi-Ingred Cream/Lotion/Oil/Oint (Artificial Tears Ophth Oint) 1 applic OU Q4HR PRN PRN Reason: Dry Eye(s) Exam - Constitutional Vitals: Temp Pulse Resp BP Pulse Ox 98.5 F 75 20 172/98 100 10/07/19 18:30 10/07/19 19:25 10/07/19 19:16 10/07/19 19:25 10/07/19 19:25 General appearance: Present: mild distress, well-nourished, disheveled - EENT Eyes: Present: PERRL ENT: hearing intact, clear oral mucosa, other (Intubated) - Neck Neck: Present: supple, normal ROM - Respiratory Respiratory effort: normal Respiratory: bilateral: CTA, rhonchi - Cardiovascular Heart rate: 88 Rhythm: regular Heart Sounds: Present: S1 & S2. Absent: rub, click - Extremities Extremities: no ischemia, pulses intact, pulses symmetrical, No edema Peripheral Pulses: within normal limits - Abdominal General gastrointestinal: Present: soft, non-tender, non-distended, normal bowel sounds Female genitourinary: Present: normal - Rectal Rectal Exam: deferred - Integumentary Integumentary: Present: clear, warm, dry - Musculoskeletal Musculoskeletal: strength equal bilaterally, other - Psychiatric Psychiatric: other - Neurologic Neurologic: moves all extremities, other (Unresponsive) - Allied Health Allied health notes reviewed: nursing, case management FRANCISCO score - Francisco Score Age > 65: (0) No Aspirin use within the Past 7 Days: (1) Yes 3 or more CAD Risk Factors: (0) No 2 or more Angina events in past 24 hrs: (0) No Known CAD with more than 50% Stenosis: (0) No Elevated Cardiac Markers: (0) No ST Deviation Greater than 0.5mm: (0) No FRANCISCO Score: 1 Results - Labs CBC & Chem 7: 10/08/19 03:59 10/08/19 03:59 Labs: Laboratory Last Values WBC 9.8 K/mm3 (4.5-11.0) 10/07/19 15:40 RBC 4.58 M/mm3 (3.65-5.03) 10/07/19 15:40 Hgb 14.0 gm/dl (10.1-14.3) 10/07/19 15:40 Hct 40.9 % (30.3-42.9) 10/07/19 15:40 MCV 89 fl (79-97) 10/07/19 15:40 MCH 31 pg (28-32) 10/07/19 15:40 MCHC 34 % (30-34) 10/07/19 15:40 RDW 13.7 % (13.2-15.2) 10/07/19 15:40 Plt Count 208 K/mm3 (140-440) 10/07/19 15:40 Lymph % (Auto) 16.0 % (13.4-35.0) 10/07/19 15:40 [place] % (Auto) 8.5 % (0.0-7.3) H 10/07/19 15:40 Eos % (Auto) 1.5 % (0.0-4.3) 10/07/19 15:40 Baso % (Auto) 0.7 % (0.0-1.8) 10/07/19 15:40 Lymph # 1.6 K/mm3 (1.2-5.4) 10/07/19 15:40 [place] # 0.8 K/mm3 (0.0-0.8) 10/07/19 15:40 Eos # 0.1 K/mm3 (0.0-0.4) 10/07/19 15:40 Baso # 0.1 K/mm3 (0.0-0.1) 10/07/19 15:40 Seg Neutrophils % 73.3 % (40.0-70.0) H 10/07/19 15:40 Seg Neutrophils # 7.2 K/mm3 (1.8-7.7) 10/07/19 15:40 ABG pH 7.439 pH Units (7.350-7.450) 10/07/19 14:22 ABG pCO2 37.7 mm Hg 10/07/19 14:22 ABG pO2 152.2 mm Hg (80.0-90.0) H 10/07/19 14:22 ABG HCO3 25.0 mmol/L (20.0-26.0) 10/07/19 14:22 ABG O2 Saturation 98.9 % (95.0-99.0) 10/07/19 14:22 ABG O2 Content 19.8 (0.0-44) 10/07/19 14:22 ABG Base Excess 1.1 mmol/L (-2.0-3.0) 10/07/19 14:22 ABG Hemoglobin 14.6 gm/dl (12.0-16.0) 10/07/19 14:22 ABG Carboxyhemoglobin 2.8 % (0.0-5.0) 10/07/19 14:22 ABG Methemoglobin 0.6 % (0.0-1.5) 10/07/19 14:22 Oxyhemoglobin 95.6 % (95.0-99.0) 10/07/19 14:22 FiO2 50 % 10/07/19 14:22 Sodium 139 mmol/L (137-145) 10/07/19 15:40 Potassium 3.2 mmol/L (3.6-5.0) L 10/07/19 15:40 Chloride 101.9 mmol/L (98-107) 10/07/19 15:40 Carbon Dioxide 21 mmol/L (22-30) L 10/07/19 15:40 Anion Gap 19 mmol/L 10/07/19 15:40 BUN 8 mg/dL (7-17) 10/07/19 15:40 Creatinine 0.6 mg/dL (0.7-1.2) L 10/07/19 15:40 Estimated GFR > 60 ml/min 10/07/19 15:40 BUN/Creatinine Ratio 13 % 10/07/19 15:40 Glucose 106 mg/dL (65-100) H 10/07/19 15:40 POC Glucose 87 (70-105) 10/07/19 13:17 Calcium 9.0 mg/dL (8.4-10.2) 10/07/19 15:40 Total Bilirubin 0.60 mg/dL (0.1-1.2) 10/07/19 15:40 AST 17 units/L (5-40) 10/07/19 15:40 ALT 9 units/L (7-56) 10/07/19 15:40 Alkaline Phosphatase 64 units/L (35-129) 10/07/19 15:40 Ammonia 31.0 umol/L (25-60) 10/07/19 15:40 Troponin T < 0.010 ng/mL (0.00-0.029) 10/07/19 15:40 Total Protein 6.6 g/dL (6.3-8.2) 10/07/19 15:40 Albumin 4.3 g/dL (3.9-5) 10/07/19 15:40 Albumin/Globulin Ratio 1.9 % 10/07/19 15:40 TSH 1.790 mlU/mL (0.270-4.200) 10/07/19 15:40 Urine Color Yellow (Yellow) 10/07/19 13:24 Urine Turbidity Slightly-cloudy (Clear) 10/07/19 13:24 Urine pH 5.0 (5.0-7.0) 10/07/19 13:24 Ur Specific [place] 1.027 (1.003-1.030) 10/07/19 13:24 Urine Protein 30 mg/dl mg/dL (Negative) 10/07/19 13:24 Urine Glucose (UA) Neg mg/dL (Negative) 10/07/19 13:24 Urine Ketones Neg mg/dL (Negative) 10/07/19 13:24 Urine Blood Neg (Negative) 10/07/19 13:24 Urine Nitrite Neg (Negative) 10/07/19 13:24 Urine Bilirubin Neg (Negative) 10/07/19 13:24 Urine Urobilinogen < 2.0 mg/dL (<2.0) 10/07/19 13:24 Ur Leukocyte Esterase Neg (Negative) 10/07/19 13:24 Urine WBC (Auto) 2.0 /HPF (0.0-6.0) 10/07/19 13:24 Urine RBC (Auto) 1.0 /HPF (0.0-6.0) 10/07/19 13:24 U Epithel Cells (Auto) 2.0 /HPF (0-13.0) 10/07/19 13:24 Urine Mucus 3+ /HPF 10/07/19 13:24 Salicylates < 0.3 mg/dL (2.8-20.0) L 10/07/19 15:40 Urine Opiates Screen Presumptive negative 10/07/19 13:24 Urine Methadone Screen Presumptive negative 10/07/19 13:24 Acetaminophen < 5.0 ug/mL (10.0-30.0) L 10/07/19 15:40 Ur Barbiturates Screen Presumptive negative 10/07/19 13:24 Ur Phencyclidine Scrn Presumptive negative 10/07/19 13:24 Ur Amphetamines Screen Presumptive negative 10/07/19 13:24 U Benzodiazepines Scrn Presumptive positive 10/07/19 13:24 Urine Cocaine Screen Presumptive positive 10/07/19 13:24 U Marijuana (THC) Screen Presumptive negative 10/07/19 13:24 Drugs of Abuse Note Disclamer 10/07/19 13:24 Plasma/Serum Alcohol < 0.01 % (0-0.07) 10/07/19 15:40 Short CBC 10/07/19 10/08/19 Range/Units 15:40 03:59 WBC 9.8 12.9 H (4.5-11.0) K/mm3 Hgb 14.0 14.3 (10.1-14.3) gm/dl Hct 40.9 41.7 (30.3-42.9) % Plt Count 208 251 (140-440) K/mm3 BMP 10/07/19 10/08/19 15:40 03:59 Sodium 139 139 Potassium 3.2 L 3.2 L Chloride 101.9 99.7 Carbon Dioxide 21 L 23 BUN 8 7 Creatinine 0.6 L 0.7 Glucose 106 H 112 H Calcium 9.0 9.0 Cardiac Enzymes 10/07/19 Range/Units 15:40 Troponin T < 0.010 (0.00-0.029) ng/mL Liver Function 10/07/19 10/08/19 Range/Units 15:40 03:59 Total Bilirubin 0.60 0.40 (0.1-1.2) mg/dL AST 17 21 (5-40) units/L ALT 9 9 (7-56) units/L Alkaline Phosphatase 64 68 (35-129) units/L Albumin 4.3 4.2 (3.9-5) g/dL Urine 10/07/19 Range/Units 13:24 Urine Color Yellow (Yellow) Urine pH 5.0 (5.0-7.0) Ur Specific [place] 1.027 (1.003-1.030) Urine Protein 30 mg/dl (Negative) mg/dL Urine Glucose (UA) Neg (Negative) mg/dL - Imaging and Cardiology EKG: report reviewed (NSR 92/min) Chest x-ray: report reviewed (NAF) CT Scan - head: report reviewed (NAF) Assessment and Plan Assessment and plan: CCT 40 minutes Advance Directives: Yes (Full code) VTE prophylaxis?: Chemical Plan of care discussed with patient/family: Yes - Patient Problems (1) Acute respiratory failure Current Visit: Yes Status: Acute Qualifiers: Respiratory failure complication: unspecified whether with hypoxia or hypercapnia Qualified Code(s): J96.00 - Acute respiratory failure, unspecified whether with hypoxia or hypercapnia Plan to address problem: Patient unresponsive and Hypoxic Intubated Duonebs q3 prn IV ceftriaxone empirically No signs of aspiration Cont vent management Maintenance Aide consult (2) Cocaine abuse Current Visit: Yes Status: Chronic Plan to address problem: Overdose now To be Counselled after extubation consult requested (3) SLE (systemic lupus erythematosus related syndrome) Current Visit: No Status: Chronic Plan to address problem: Not on any meds To restart after extubation (4) CHF (congestive heart failure) Current Visit: No Status: Chronic Qualifiers: Heart failure type: diastolic Heart failure chronicity: acute Qualified Code(s): I50.31 - Acute diastolic (congestive) heart failure Plan to address problem: IV fluids at 42 cc/hr ECHO for EF (5) GERD (gastroesophageal reflux disease) Current Visit: Yes Status: Chronic Qualifiers: Esophagitis presence: without esophagitis Qualified Code(s): K21.9 - Gastro-esophageal reflux disease without esophagitis (6) Hypokalemia Current Visit: Yes Status: Acute Plan to address problem: Supplemented (7) Asthma Current Visit: Yes Status: Chronic Qualifiers: Asthma complication type: unspecified Plan to address problem: To cont Singulair (8) DVT prophylaxis Current Visit: No Status: Acute Plan to address problem: On Heparin and GI prophylaxis
[2019-10-07] MEDS ORDERED: SIMPLE SYRUP 15 ML FEEDTUBE PRN ×2 (19:35)
[2019-10-07] MEDS ORDERED: LIPASE 10,500/PROTEASE 25,000/AMYLASE 43,750 (UNITS) DR CAP FEEDTUBE PRN (19:35)
[2019-10-07] MEDS ORDERED: MORPHINE 2 MG/1 ML INJ IV PRN (19:35)
[2019-10-07] MEDS ORDERED: SODIUM BICARBONATE 325 MG TAB FEEDTUBE PRN (19:35)
[2019-10-07] MEDS ORDERED: IPRATROPIUM/ALBUTEROL SULFATE 3 ML AMPUL.NEB IH PRN (19:39)
[2019-10-07] MEDS ORDERED: ETOMIDATE 20 MG/10 ML INJ IV ONE (20:10)
[2019-10-07] MEDS ORDERED: ROCURONIUM 50 MG/5 ML INJ IV ONE (20:10)
[2019-10-07] MEDS ORDERED: MORPHINE 4 MG/1 ML INJ ONE (20:20)
[2019-10-07] MEDS ORDERED: cefTRIAXone/NS 2 GM/100 ML 2 GM/100 ML BAG IV ONE (21:15)
[2019-10-07] MEDS: cefTRIAXone/NS 2 GM/100 ML 2 GM/100 ML BAG IV SCH (21:17)
[2019-10-07] MEDS ORDERED: HEPARIN 5,000 UNIT/1 ML VIAL ONE (23:05)
[2019-10-07] MEDS: HEPARIN 5,000 UNIT/1 ML VIAL SUB-Q SCH (23:05)
--- NOTE | 2019-10-08 02:57 | XRay Report ---
CHEST 1 VIEW 10/08/2019 2:11 AM INDICATION / CLINICAL INFORMATION: follow up respiratory failure. COMPARISON: One view of the chest from 10/07/2019. FINDINGS: SUPPORT DEVICES: Stable positioning. HEART / MEDIASTINUM: No significant abnormality. LUNGS / PLEURA: No significant pulmonary or pleural abnormality. No pneumothorax. ADDITIONAL FINDINGS: No significant additional findings. IMPRESSION: 1. No acute abnormality of the chest. Signer Name: Rolo Balderas MD Signed: 10/08/2019 2:52 AM Workstation Name: [id number]
[2019-10-08 04:17] LABS: Basophils # (Auto) 0.1 K/mm3 (0.0-0.1); Basophils % (Auto) 0.6 % (0.0-1.8); Eosinophils # (Auto) 0.2 K/mm3 (0.0-0.4); Eosinophils % (Auto) 1.5 % (0.0-4.3); Hematocrit 41.7 % (30.3-42.9); Hemoglobin 14.3 gm/dl (10.1-14.3); Lymphocytes # (Auto) 1.3 K/mm3 (1.2-5.4); Mean Corpuscular HGB Conc 34 % (30-34); Mean Corpuscular Volume 88 fl (79-97); Monocytes % (Auto) 7.6 % (0.0-7.3); Platelet Count 251 K/mm3 (140-440); Red Blood Count 4.75 M/mm3 (3.65-5.03)
[2019-10-08 04:26] LABS: ABG Base Excess 1.2 mmol/L (-2.0-3.0); ABG HCO3 24.2 mmol/L (20.0-26.0); ABG Methemoglobin 0.7 % (0.0-1.5); ABG Oxygen Saturation 98.7 % (95.0-99.0); ABG PCO2 33.7 mm Hg; ABG PH 7.474 pH Units (7.350-7.450)
[2019-10-08 04:43] LABS: Alanine Aminotransferase 9 units/L (7-56); Albumin 4.2 g/dL (3.9-5); BUN/Creatinine Ratio 10; Blood Urea Nitrogen 7 mg/dL (7-17); Hemolysis Index 38
[2019-10-08] MEDS ORDERED: POTASSIUM CHLORIDE 10 MEQ 10 MEQ/100 ML BAG IV ONE ×4 (07:51→15:03)
--- NOTE | 2019-10-08 08:58 | Consultation ---
History of Present Illness Consult date: 10/08/19 Requesting physician: CHARLENE HOU Reason for consult: other (CRITICAL CARE) History of present illness: HISTORY PER MEDICAL RECORDS- Patient is orally intubated and sedated 49-year-old female presents to the emergency department by EMS from home unresponsive with an alleged overdose on cocaine and benzodiazepines. Unknown how much of each the patient has taken or used. The patient was receiving bag valve ventilation due to her unresponsiveness upon arrival. She is a poor historian secondary to her current medical condition. In reviewing the patient's previous visits and charts, she appears to have history of asthma, CHF and EUSEBIA. The patient was given a total of 4 mg of Narcan by EMS without much improvement. She has is being admitted to the ICU and I have been consulted fro critical care management. Thank you for the consult. Patient was seen and examined. Vitals, labs,medications, chart and imaging reviewed Past Medical History Previous Medical History?: Yes Hypertension: Yes Congestive Heart Failure: Yes Asthma: Yes Additional medical history: Lupus Surgical History Past Surgical History?: Yes Additional Surgical History: tubal ligation. endometrial ablasion Social History Smoking Status: Unknown if ever smoked Substance Use Type: Cocaine Medications and Allergies Allergies Allergy/AdvReac Type Severity Reaction Status Date / Time bee venom protein (honey bee) Allergy Shortness Verified 07/10/18 16:39 of Breath iv contrast Allergy Hives Uncoded 07/10/18 16:36 Home Medications Medication Instructions Recorded Confirmed Last Taken Type ALBUTEROL Inhaler(NF) [VENTOLIN 1 puff IH Q4HR PRN #1 inha 07/10/18 04/28/19 Unknown Rx Inhaler(NF)] atenoloL [Tenormin] 25 mg PO DAILY 12/28/18 04/28/19 Unknown History busPIRone [Buspar] 10 mg PO BID 12/28/18 04/28/19 Unknown History Aspirin [Aspirin BABY CHEW TAB] 81 mg PO QDAY #30 tab.chew 12/30/18 04/28/19 Unknown Rx Hydroxychloroquine [Plaquenil] 200 mg PO QDAY 30 Days tablet 12/30/18 04/28/19 Unknown Rx ALPRAZolam [Xanax TAB] 0.5 mg PO Q12HR #10 tablet 05/04/19 Unknown Rx Budesonide/Formoterol Fumarate 10.2 gm IH BID 30 Days hfa.aer.ad 05/04/19 Unknown Rx [Symbicort 160-4.5 Mcg Inhaler] HYDROcodone/HOMATROP 5-1.5 10 ml PO Q6H PRN #200 ml 05/04/19 Unknown Rx [HYDROcodone-Homatropin 5-1.5 mg per 5 ML] Montelukast [Singulair] 10 mg PO QHS 30 Days tablet 05/04/19 Unknown Rx Pantoprazole [Protonix TAB] 40 mg PO DAILY #30 tablet 05/04/19 Unknown Rx Prednisone [predniSONE 10 mg 10 mg PO .TAPER #1 tab.ds.pk 05/04/19 Unknown Rx (6-Day Pack, 21 Tabs)] guaiFENesin ER [Mucinex ER] 600 mg PO BID #7 tablet 05/04/19 Unknown Rx oxyCODONE /ACETAMINOPHEN [Percocet 1 tab PO Q4H PRN #14 tablet 05/04/19 Unknown Rx 5/325 mg] Active Meds: Active Medications Albuterol/Ipratropium (Duoneb *Not For Prn Use*) 1 ampul IH Q3H PRN PRN Reason: Wheezing Lipase/Protease/Amylase (Pancreaze Dr 10,500 Unit) 1 each FEEDTUBE PRN PRN PRN Reason: For Clogged Feeding Tube Famotidine (Pepcid) 20 mg IV BID ROMMEL Heparin Sodium (Porcine) (Heparin) 5,000 unit SUB-Q Q12HR ROMMEL Last Admin: 10/07/19 23:05 Dose: 5,000 unit Documented by: Hydrophilic Ointment (Vaseline Lip Therapy) 1 applic TP Q2HR PRN PRN Reason: Dry Lips Propofol (Diprivan 10 Mg/Ml) 1,000 mg in 100 mls @ 3.249 mls/hr IV TITR ROMMEL; Protocol Last Admin: 10/08/19 05:13 Dose: 50 mcg/kg/min, 32.49 mls/hr Documented by: Midazolam HCl 100 mg/ Sodium (Chloride) 100 mls @ 2 mls/hr IV TITR ROMMEL; Protocol Last Admin: 10/07/19 16:30 Dose: 2 mg/hr, 2 mls/hr Documented by: Dextrose/Sodium Chloride (D5ns) 1,000 mls @ 75 mls/hr IV DIRECT ROMMEL Ceftriaxone Sodium (Rocephin/Ns 2 Gm/100 Ml) 2 gm in 100 mls @ 200 mls/hr IV Q24HR [facility]; Protocol Last Admin: 10/07/19 21:17 Dose: 200 mls/hr Documented by: Potassium Chloride (Kcl 10meq/100ml) 10 meq in 100 mls @ 100 mls/hr IV Q1H [facility] Stop: 10/08/19 11:59 Midazolam HCl (Versed) 2 mg IV Q10MIN PRN PRN Reason: Sedation Last Admin: 10/07/19 15:30 Dose: 2 mg Documented by: Morphine Sulfate (Morphine) 2 mg IV Q4H PRN PRN Reason: Pain, Moderate (4-6) Last Admin: 10/07/19 20:24 Dose: 2 mg Documented by: Multi-Ingred Cream/Lotion/Oil/Oint (Artificial Tears Ophth Oint) 1 applic OU Q4 HR PRN PRN Reason: Dry Eye(s) Simple Syrup (Simple Syrup) 15 ml FEEDTUBE PRN PRN PRN Reason: Hypoglycemia Simple Syrup (Simple Syrup) 30 ml FEEDTUBE PRN PRN PRN Reason: Hypoglycemia Sodium Bicarbonate (Sodium Bicarbonate) 325 mg FEEDTUBE PRN PRN PRN Reason: For Clogged Feeding Tube Sodium Chloride (Sodium Chloride Flush Syringe 10 Ml) 10 ml IV BID [facility] Last Admin: 10/07/19 23:02 Dose: 10 ml Documented by: Sodium Chloride (Sodium Chloride Flush Syringe 10 Ml) 10 ml IV PRN PRN PRN Reason: LINE FLUSH Review of Systems ROS unobtainable: due to endotracheal tube, due to mental status Physical Examination Vital signs: Vital Signs Pulse Resp BP Pulse Ox 116 H 14 219/139 100 10/07/19 13:15 10/07/19 13:15 10/07/19 13:15 10/07/19 13:15 General appearance: no acute distress, other (orally intubated, looks dishevelled) Eyes: non-icteric ENT: other (ETT at 23cm at the lip) Neck: supple, no lymphadenopathy, no JVD Effort: mildly labored Ascultation: Bilateral: clear, diminished breath sounds Cardiovascular: regular rate and rhythm, other (S1,S2, no murmurs, gallops or rubs) Gastrointestinal: normoactive bowel sounds, soft, non-tender, non-distended Integumentary: normal Extremities: no cyanosis, no edema, pink and warm, pulses normal, no ischemia or petechiae non-focal exam, other (moves all extremities) other (unable to assess, sedated) Results - Laboratory Findings CBC and BMP: 10/09/19 05:08 10/09/19 05:08 ABG ABG pH 7.474 pH Units (7.350-7.450) H 10/08/19 04:20 ABG pCO2 33.7 mm Hg 10/08/19 04:20 ABG pO2 133.0 mm Hg (80.0-90.0) H 10/08/19 04:20 ABG O2 Saturation 98.7 % (95.0-99.0) 10/08/19 04:20 Abnormal lab findings: Abnormal Labs 10/07/19 10/07/19 10/07/19 14:22 15:40 15:40 WBC Lymph % (Auto) [place] % (Auto) 8.5 H [place] # Seg Neutrophils % 73.3 H Seg Neutrophils # ABG pH ABG pO2 152.2 H Potassium 3.2 L Carbon Dioxide 21 L Creatinine 0.6 L Glucose 106 H Salicylates Acetaminophen 10/07/19 10/07/19 10/08/19 15:40 15:40 03:59 WBC 12.9 H Lymph % (Auto) 10.0 L [place] % (Auto) 7.6 H [place] # 1.0 H Seg Neutrophils % 80.3 H Seg Neutrophils # 10.4 H ABG pH ABG pO2 Potassium Carbon Dioxide Creatinine Glucose Salicylates < 0.3 L Acetaminophen < 5.0 L 10/08/19 10/08/19 03:59 04:20 WBC Lymph % (Auto) [place] % (Auto) [place] # Seg Neutrophils % Seg Neutrophils # ABG pH 7.474 H ABG pO2 133.0 H Potassium 3.2 L Carbon Dioxide Creatinine Glucose 112 H Salicylates Acetaminophen - Diagnostic Findings Chest x-ray: image reviewed (ETT in place, no acute pulmoanry infiltrates, borderline cardiomegaly) Assessment and Plan Acute hypoxemic respiratory failure secondary to overdose Cocaine abuse disorder h/o SLE h/o Heart failure, unknown EF h/o Asthma -Wean supplemental oxygen fro O2 sats >90 -VAP bundle addressed -Aspiration precautions, HOB>40 degrees - Lung protective strategies -Adjust minute ventilation for better acid-base balance -Bronchodilators per protocol -Mobility for pressure ulcer prevention, off loading -Maintenance of sleep- wake cycle, avoid delirium -CXR, ABG in am -CBC, BMP in am -Daily SAT, SBT as tolerated -Place small bowel feeding tube, confirm placement and initiate enteric nutrition - Sedation for RASS of -1 -VTE prophylaxis -Stress ulcer prophylaxis - Accuchecks with glycemic control for SSI (While critically ill target blood glucose of 140-180 mg/dL; avoid hypoglycemia) - Monitor hemodynamics closely -Monitor electrolyte profile closely and replete as indicated -Chronic home medications, resume as clinically indicated -[place] catheter to be discontinued - 1013 and psych consult -Substance abuse counselling when extubated and more stable -Monitor off antibiotics for now CONDITION: CRITICAL PROGNOSIS: GUARDED CODE STATUS: FULL CODE The high probability of a clinically significant, sudden or life-threatening deterioration of the [respiratory, neurology] system(s) required my full and direct attention, intervention and personal management. The aggregate critical care time was [35] minutes without overlap. Time includes spent on; [x] Data Review and interpretation [x] Patient assessment and monitoring of vital signs [x] Documentation [x] Medication orders and management
[2019-10-08] MEDS ORDERED: cefTRIAXone/NS 2 GM/100 ML 2 GM/100 ML BAG IV ONE (10:20)
[2019-10-08] MEDS ORDERED: FAMOTIDINE 20 MG/2 ML INJ IV ONE (10:21)
[2019-10-08] MEDS ORDERED: HEPARIN 5,000 UNIT/1 ML VIAL ONE (10:21)
[2019-10-08] MEDS: cefTRIAXone/NS 2 GM/100 ML 2 GM/100 ML BAG IV SCH (10:28)
[2019-10-08] MEDS: HEPARIN 5,000 UNIT/1 ML VIAL SUB-Q SCH ×2 (10:33→21:35)
[2019-10-08] MEDS: POTASSIUM CHLORIDE 10 MEQ 10 MEQ/100 ML BAG IV SCH ×4 (10:33→15:05)
[2019-10-08] MEDS: FAMOTIDINE 20 MG/2 ML INJ IV SCH ×2 (10:33→21:35)
--- NOTE | 2019-10-08 13:59 | Progress Note ---
Assessment and Plan / Acute respiratory failure with hypoxia Patient was unresponsive and Hypoxic Duonebs q3 prn IV ceftriaxone empirically No signs of aspiration Cont vent management Supervisor Of Communications consulted /Acute toxic encephalopathy -Likely from drug overdose and cocaine abuse / Cocaine abuse Overdose now To be Counselled after extubation MH consult requested will follow recommendation / SLE (systemic lupus erythematosus related syndrome) Not on any meds, need to continue outpatient follow-up following discharge / CHF (congestive heart failure) cont IV fluids at 42 cc/hr We will follow ECHO for EF / GERD (gastroesophageal reflux disease) cont PPI / Hypokalemia Supplemented / Asthma To cont Singulair, and nebs treatment / DVT prophylaxis On Heparin and GI prophylaxis The high probability of a clinically significant, sudden or life threatening deterioration of the [MULTIPLE] system(s) required my full and direct attention, intervention and personal management. The aggregate critical care time was [] minutes. This time is in addition to time spent performing reported procedures but includes the following: [X] Data Review and interpretation [X] Patient assessment and monitoring of vital signs [X] Documentation [X] Medication orders and management Brief history: 49-year-old female presents to the emergency department by EMS from home unresponsive with an alleged overdose on cocaine and benzodiazepines. The patient was receiving bag valve ventilation due to her unresponsiveness upon arrival. In reviewing the patient's previous visits and charts, she appears to have history of asthma, CHF and GerD. The patient was given a total of 4 mg of Narcan by EMS without much improvement. She was intubated in the ER and call for admission. Subjective Date of service: 10/08/19 Interval history: Patient seen and examined. Medical records and medication list reviewed. No acute event overnight noted by the RN. Patient remained intubated, discussed plan of care with RN No family at bedside Objective - Exam Narrative Exam: General appearance: Present: mild distress, well-nourished, disheveled - EENT Eyes: Present: PERRL ENT: hearing intact, clear oral mucosa, other (Intubated) - Neck Neck: Present: supple, normal ROM - Respiratory Respiratory effort: normal Respiratory: bilateral: CTA, rhonchi - Cardiovascular Heart rate: 88 Rhythm: regular Heart Sounds: Present: S1 & S2. Absent: rub, click - Extremities Extremities: no ischemia, pulses intact, pulses symmetrical, No edema Peripheral Pulses: within normal limits - Abdominal General gastrointestinal: Present: soft, non-tender, non-distended, normal bowel sounds Female genitourinary: Present: normal - Rectal Rectal Exam: deferred - Integumentary Integumentary: Present: clear, warm, dry - Musculoskeletal Musculoskeletal: strength equal bilaterally, other - Psychiatric Psychiatric: other - Neurologic Neurologic: moves all extremities, other (Unresponsive) - Allied Health Allied health notes reviewed: nursing, case management - Constitutional Vitals: Vital Signs - 12hr 10/08/19 10/08/19 10/08/19 02:00 02:15 02:30 Temperature Pulse Rate 88 88 Respiratory 20 16 Rate Blood Pressure 135/80 135/80 168/96 O2 Sat by Pulse 100 100 Oximetry 10/08/19 10/08/19 10/08/19 02:45 03:00 03:15 Temperature Pulse Rate Respiratory Rate Blood Pressure 163/94 143/95 151/87 O2 Sat by Pulse 100 100 Oximetry 10/08/19 10/08/19 10/08/19 03:30 03:45 04:01 Temperature Pulse Rate Respiratory Rate Blood Pressure 127/85 135/74 127/85 O2 Sat by Pulse 100 Oximetry 10/08/19 10/08/19 10/08/19 04:15 04:24 04:30 Temperature Pulse Rate 86 85 86 Respiratory 20 20 Rate Blood Pressure 133/87 133/87 138/89 O2 Sat by Pulse 100 100 Oximetry 10/08/19 10/08/19 10/08/19 04:45 05:00 05:15 Temperature Pulse Rate 91 H 92 H 92 H Respiratory 18 18 15 Rate Blood Pressure 138/89 128/79 138/89 O2 Sat by Pulse 100 100 99 Oximetry 10/08/19 10/08/19 10/08/19 05:30 05:45 06:00 Temperature Pulse Rate 84 94 H 84 Respiratory 8 L 12 18 Rate Blood Pressure 146/95 146/95 153/96 O2 Sat by Pulse 100 99 100 Oximetry 10/08/19 10/08/19 10/08/19 06:16 06:30 06:46 Temperature Pulse Rate 92 H 87 92 H Respiratory 18 18 18 Rate Blood Pressure 157/99 157/99 O2 Sat by Pulse 99 100 Oximetry 10/08/19 10/08/19 10/08/19 07:00 07:16 07:30 Temperature Pulse Rate 98 H 99 H 96 H Respiratory 18 18 18 Rate Blood Pressure 130/78 130/78 129/79 O2 Sat by Pulse 98 98 96 Oximetry 10/08/19 10/08/19 10/08/19 07:46 08:00 08:16 Temperature Pulse Rate 97 H 88 92 H Respiratory 18 17 15 Rate Blood Pressure 129/79 125/74 125/74 O2 Sat by Pulse 98 98 Oximetry 10/08/19 10/08/19 10/08/19 08:30 08:46 08:50 Temperature Pulse Rate 84 86 89 Respiratory 18 18 Rate Blood Pressure 129/79 129/79 130/68 O2 Sat by Pulse 100 100 100 Oximetry 10/08/19 10/08/19 10/08/19 09:00 09:16 09:30 Temperature Pulse Rate 89 88 92 H Respiratory 18 18 18 Rate Blood Pressure 130/68 130/68 113/60 O2 Sat by Pulse 100 100 97 Oximetry 10/08/19 10/08/19 10/08/19 09:46 10:00 10:16 Temperature Pulse Rate 91 H 90 91 H Respiratory 18 18 18 Rate Blood Pressure 113/60 108/54 108/54 O2 Sat by Pulse 97 97 97 Oximetry 10/08/19 10/08/19 10/08/19 10:30 10:46 11:00 Temperature Pulse Rate 88 88 87 Respiratory 18 22 18 Rate Blood Pressure 107/55 107/55 110/71 O2 Sat by Pulse 98 99 100 Oximetry 10/08/19 10/08/19 10/08/19 11:16 11:30 11:46 Temperature Pulse Rate 84 85 87 Respiratory 18 18 18 Rate Blood Pressure 110/71 106/64 106/64 O2 Sat by Pulse 100 100 100 Oximetry 10/08/19 10/08/19 10/08/19 12:00 12:16 12:19 Temperature Pulse Rate 88 82 81 Respiratory 18 18 Rate Blood Pressure 97/59 97/59 97/59 O2 Sat by Pulse 99 100 100 Oximetry 10/08/19 10/08/19 10/08/19 12:30 12:46 12:50 Temperature 97.9 F Pulse Rate 77 78 Respiratory 18 18 Rate Blood Pressure 109/69 109/69 O2 Sat by Pulse 99 100 Oximetry 10/08/19 13:00 Temperature Pulse Rate 82 Respiratory 18 Rate Blood Pressure 105/64 O2 Sat by Pulse 100 Oximetry - Labs CBC & Chem 7: 10/09/19 05:08 02/10/20 05:08 Labs: Abnormal lab results 10/07/19 10/07/19 10/07/19 Range/Units 14:22 15:40 15:40 WBC (4.5-11.0) K/mm3 Lymph % (Auto) (13.4-35.0) % [place] % (Auto) 8.5 H (0.0-7.3) % [place] # (0.0-0.8) K/mm3 Seg Neutrophils % 73.3 H (40.0-70.0) % Seg Neutrophils # (1.8-7.7) K/mm3 ABG pH (7.350-7.450) pH Units ABG pO2 152.2 H (80.0-90.0) mm Hg Potassium 3.2 L (3.6-5.0) mmol/L Carbon Dioxide 21 L (22-30) mmol/L Creatinine 0.6 L (0.7-1.2) mg/dL Glucose 106 H (65-100) mg/dL Salicylates (2.8-20.0) mg/dL Acetaminophen (10.0-30.0) ug/mL 10/07/19 10/07/19 10/08/19 Range/Units 15:40 15:40 03:59 WBC 12.9 H (4.5-11.0) K/mm3 Lymph % (Auto) 10.0 L (13.4-35.0) % [place] % (Auto) 7.6 H (0.0-7.3) % [place] # 1.0 H (0.0-0.8) K/mm3 Seg Neutrophils % 80.3 H (40.0-70.0) % Seg Neutrophils # 10.4 H (1.8-7.7) K/mm3 ABG pH (7.350-7.450) pH Units ABG pO2 (80.0-90.0) mm Hg Potassium (3.6-5.0) mmol/L Carbon Dioxide (22-30) mmol/L Creatinine (0.7-1.2) mg/dL Glucose (65-100) mg/dL Salicylates < 0.3 L (2.8-20.0) mg/dL Acetaminophen < 5.0 L (10.0-30.0) ug/mL 10/08/19 10/08/19 Range/Units 03:59 04:20 WBC (4.5-11.0) K/mm3 Lymph % (Auto) (13.4-35.0) % [place] % (Auto) (0.0-7.3) % [place] # (0.0-0.8) K/mm3 Seg Neutrophils % (40.0-70.0) % Seg Neutrophils # (1.8-7.7) K/mm3 ABG pH 7.474 H (7.350-7.450) pH Units ABG pO2 133.0 H (80.0-90.0) mm Hg Potassium 3.2 L (3.6-5.0) mmol/L Carbon Dioxide (22-30) mmol/L Creatinine (0.7-1.2) mg/dL Glucose 112 H (65-100) mg/dL Salicylates (2.8-20.0) mg/dL Acetaminophen (10.0-30.0) ug/mL
[2019-10-08] MEDS: IPRATROPIUM/ALBUTEROL SULFATE 3 ML AMPUL.NEB IH SCH ×2 (14:50→21:46)
[2019-10-08] MEDS ORDERED: IPRATROPIUM/ALBUTEROL SULFATE 3 ML AMPUL.NEB IH ONE ×2 (14:59)
[2019-10-08] MEDS ORDERED: methylPREDNISolone Sod Succinate 40 MG/1 ML INJ ONE (15:03)
[2019-10-08] MEDS: methylPREDNISolone Sod Succinate 40 MG/1 ML INJ IV SCH (15:08)
[2019-10-08] MEDS: D5W/0.9% NACL 1,000 ML IV SCH (15:57)
--- NOTE | 2019-10-08 17:33 | XRay Report ---
ABDOMEN 1 VIEW(S) INDICATION / CLINICAL INFORMATION: NGT placement. COMPARISON: None available. FINDINGS: TUBES / LINES: NG tube tip coiled in the stomach. BOWEL GAS PATTERN: Mild small bowel distention. ADDITIONAL FINDINGS: No significant additional findings. Signer Name: Neil Benoit MD Signed: 10/08/2019 5:28 PM Workstation Name: [id number]
[2019-10-08] MEDS ORDERED: POTASSIUM CHLORIDE ER 20 MEQ TAB PO ONE (19:00)
[2019-10-09] MEDS: IPRATROPIUM/ALBUTEROL SULFATE 3 ML AMPUL.NEB IH SCH ×4 (02:24→21:28)
--- NOTE | 2019-10-09 03:23 | XRay Report ---
CHEST 1 VIEW 10/09/2019 2:16 AM INDICATION / CLINICAL INFORMATION: follow up respiratory failure. COMPARISON: One view of the chest from 10/08/2019. FINDINGS: SUPPORT DEVICES: Stable positioning. HEART / MEDIASTINUM: No significant abnormality. LUNGS / PLEURA: No significant pulmonary or pleural abnormality. No pneumothorax. ADDITIONAL FINDINGS: No significant additional findings. IMPRESSION: 1. No acute abnormality of the chest. 2. Stable positioning of the ET and NG tubes. Signer Name: Rolo Balderas MD Signed: 10/09/2019 3:18 AM Workstation Name: [id number]
[2019-10-09] MEDS: MIDAZOLAM 2 MG/2 ML INJ IV PRN (03:35)
[2019-10-09] MEDS: D5W/0.9% NACL 1,000 ML IV SCH ×2 (03:57→19:19)
[2019-10-09 04:07] LABS: ABG Base Excess -2.1 mmol/L (-2.0-3.0); ABG HCO3 22.5 mmol/L (20.0-26.0); ABG Methemoglobin 0.6 % (0.0-1.5); ABG Oxygen Saturation 97.1 % (95.0-99.0); ABG PCO2 38.1 mm Hg; ABG PH 7.388 pH Units (7.350-7.450); ABG PO2 92.4 mm Hg (80.0-90.0)
[2019-10-09 05:35] LABS: Basophils % (Auto) 0.3 % (0.0-1.8); Hematocrit 38.6 % (30.3-42.9); Lymphocytes # (Auto) 0.7 K/mm3 (1.2-5.4); Lymphocytes % (Auto) 8.2 % (13.4-35.0); Mean Corpuscular HGB Conc 34 % (30-34); Mean Corpuscular Volume 89 fl (79-97); Monocytes # (Auto) 0.6 K/mm3 (0.0-0.8); Monocytes % (Auto) 6.5 % (0.0-7.3); Platelet Count 242 K/mm3 (140-440); Red Blood Count 4.35 M/mm3 (3.65-5.03); Red Cell Distribution Width 14.1 % (13.2-15.2)
[2019-10-09 05:59] LABS: BUN/Creatinine Ratio 8; Blood Urea Nitrogen 6 mg/dL (7-17); Calcium 8.9 mg/dL (8.4-10.2); Hemolysis Index 1
[2019-10-09] MEDS: MIDAZOLAM 100 MG in SODIUM CHLORIDE 0.9% 80 ML IV SCH (06:04)
[2019-10-09] MEDS: cefTRIAXone/NS 2 GM/100 ML 2 GM/100 ML BAG IV SCH (09:35)
[2019-10-09] MEDS: FAMOTIDINE 20 MG/2 ML INJ IV SCH (09:35)
[2019-10-09] MEDS: methylPREDNISolone Sod Succinate 40 MG/1 ML INJ IV SCH (09:35)
[2019-10-09] MEDS: HEPARIN 5,000 UNIT/1 ML VIAL SUB-Q SCH ×2 (09:35→21:37)
--- NOTE | 2019-10-09 09:36 | Progress Note ---
Subjective Date of service: 10/09/19 Interval history: Patient is seen today for: Seen and examined at bedside; 24hour events reviewed; nursing and respiratory care staff consulted; no adverse overnight events reported to me; Objective Vital Signs - 12hr 10/08/19 10/08/19 10/08/19 21:40 21:48 21:49 Temperature Pulse Rate 81 77 Pulse Rate [ 83 Anterior Bilateral Throughout] Pulse Rate [ From Monitor] Respiratory 18 Rate Respiratory 18 Rate [Anterior Bilateral Throughout] Blood Pressure 92/46 92/46 O2 Sat by Pulse 96 99 Oximetry 10/08/19 10/08/19 10/08/19 21:50 22:00 22:10 Temperature Pulse Rate 78 80 79 Pulse Rate [ Anterior Bilateral Throughout] Pulse Rate [ From Monitor] Respiratory 18 18 18 Rate Respiratory Rate [Anterior Bilateral Throughout] Blood Pressure 92/46 98/50 98/50 O2 Sat by Pulse 99 99 99 Oximetry 10/08/19 10/08/19 10/08/19 22:20 22:30 22:40 Temperature Pulse Rate 80 82 79 Pulse Rate [ Anterior Bilateral Throughout] Pulse Rate [ From Monitor] Respiratory 18 18 18 Rate Respiratory Rate [Anterior Bilateral Throughout] Blood Pressure 98/50 99/48 99/48 O2 Sat by Pulse 99 98 99 Oximetry 10/08/19 10/08/19 10/08/19 22:50 23:00 23:10 Temperature Pulse Rate 82 80 79 Pulse Rate [ Anterior Bilateral Throughout] Pulse Rate [ From Monitor] Respiratory 18 18 18 Rate Respiratory Rate [Anterior Bilateral Throughout] Blood Pressure 99/48 96/49 96/49 O2 Sat by Pulse 100 100 99 Oximetry 10/08/19 10/08/19 10/08/19 23:20 23:30 23:40 Temperature Pulse Rate 79 78 77 Pulse Rate [ Anterior Bilateral Throughout] Pulse Rate [ From Monitor] Respiratory 18 18 18 Rate Respiratory Rate [Anterior Bilateral Throughout] Blood Pressure 96/49 100/51 100/51 O2 Sat by Pulse 99 99 Oximetry 10/08/19 10/09/19 10/09/19 23:50 00:00 00:07 Temperature 97.9 F Pulse Rate 77 75 76 Pulse Rate [ Anterior Bilateral Throughout] Pulse Rate [ 76 From Monitor] Respiratory 18 18 18 Rate Respiratory Rate [Anterior Bilateral Throughout] Blood Pressure 100/51 101/52 101/52 O2 Sat by Pulse 99 98 99 Oximetry 10/09/19 10/09/19 10/09/19 00:10 00:16 00:20 Temperature Pulse Rate 80 79 81 Pulse Rate [ Anterior Bilateral Throughout] Pulse Rate [ From Monitor] Respiratory 18 18 18 Rate Respiratory Rate [Anterior Bilateral Throughout] Blood Pressure 101/52 101/52 101/52 O2 Sat by Pulse 98 98 97 Oximetry 10/09/19 10/09/19 10/09/19 00:30 00:40 00:50 Temperature Pulse Rate 82 80 77 Pulse Rate [ Anterior Bilateral Throughout] Pulse Rate [ From Monitor] Respiratory 17 18 17 Rate Respiratory Rate [Anterior Bilateral Throughout] Blood Pressure 106/52 106/52 106/52 O2 Sat by Pulse 97 96 Oximetry 10/09/19 10/09/19 10/09/19 01:00 01:10 01:20 Temperature Pulse Rate 79 77 78 Pulse Rate [ Anterior Bilateral Throughout] Pulse Rate [ From Monitor] Respiratory 18 18 17 Rate Respiratory Rate [Anterior Bilateral Throughout] Blood Pressure 102/54 102/54 102/54 O2 Sat by Pulse 97 97 Oximetry 10/09/19 10/09/19 10/09/19 01:30 01:40 01:50 Temperature Pulse Rate 74 77 77 Pulse Rate [ Anterior Bilateral Throughout] Pulse Rate [ From Monitor] Respiratory 18 18 18 Rate Respiratory Rate [Anterior Bilateral Throughout] Blood Pressure 95/51 95/51 95/51 O2 Sat by Pulse 97 97 Oximetry 10/09/19 10/09/19 10/09/19 02:00 02:10 02:20 Temperature Pulse Rate 74 78 78 Pulse Rate [ Anterior Bilateral Throughout] Pulse Rate [ From Monitor] Respiratory 18 18 18 Rate Respiratory Rate [Anterior Bilateral Throughout] Blood Pressure 101/54 101/54 101/54 O2 Sat by Pulse 96 96 98 Oximetry 10/09/19 10/09/19 10/09/19 02:25 02:30 02:40 Temperature Pulse Rate 69 72 Pulse Rate [ 74 Anterior Bilateral Throughout] Pulse Rate [ From Monitor] Respiratory 18 18 Rate Respiratory 19 Rate [Anterior Bilateral Throughout] Blood Pressure 104/61 104/61 O2 Sat by Pulse 100 Oximetry 10/09/19 10/09/19 10/09/19 02:50 03:00 03:10 Temperature Pulse Rate 76 78 83 Pulse Rate [ Anterior Bilateral Throughout] Pulse Rate [ From Monitor] Respiratory 18 18 18 Rate Respiratory Rate [Anterior Bilateral Throughout] Blood Pressure 104/61 117/68 117/68 O2 Sat by Pulse 99 99 99 Oximetry 10/09/19 10/09/19 10/09/19 03:20 03:23 03:30 Temperature Pulse Rate 81 84 92 H Pulse Rate [ Anterior Bilateral Throughout] Pulse Rate [ From Monitor] Respiratory 13 20 Rate Respiratory Rate [Anterior Bilateral Throughout] Blood Pressure 117/68 117/68 124/86 O2 Sat by Pulse 99 98 99 Oximetry 10/09/19 10/09/19 10/09/19 03:40 03:50 04:00 Temperature 98 F Pulse Rate 89 83 81 Pulse Rate [ Anterior Bilateral Throughout] Pulse Rate [ 81 From Monitor] Respiratory 18 18 18 Rate Respiratory Rate [Anterior Bilateral Throughout] Blood Pressure 124/86 124/86 116/70 O2 Sat by Pulse 100 99 97 Oximetry 10/09/19 10/09/19 10/09/19 04:10 04:20 04:30 Temperature Pulse Rate 88 93 H 95 H Pulse Rate [ Anterior Bilateral Throughout] Pulse Rate [ From Monitor] Respiratory 18 16 17 Rate Respiratory Rate [Anterior Bilateral Throughout] Blood Pressure 116/70 116/70 109/62 O2 Sat by Pulse 100 99 98 Oximetry 10/09/19 10/09/19 10/09/19 04:40 04:50 05:00 Temperature Pulse Rate 90 91 H 89 Pulse Rate [ Anterior Bilateral Throughout] Pulse Rate [ From Monitor] Respiratory 18 18 18 Rate Respiratory Rate [Anterior Bilateral Throughout] Blood Pressure 109/62 109/62 101/55 O2 Sat by Pulse 97 97 Oximetry 10/09/19 10/09/19 10/09/19 05:10 05:20 05:30 Temperature Pulse Rate 85 85 86 Pulse Rate [ Anterior Bilateral Throughout] Pulse Rate [ From Monitor] Respiratory 19 18 18 Rate Respiratory Rate [Anterior Bilateral Throughout] Blood Pressure 101/55 101/55 101/49 O2 Sat by Pulse 99 97 98 Oximetry 10/09/19 10/09/19 10/09/19 05:40 05:50 06:00 Temperature Pulse Rate 84 81 82 Pulse Rate [ Anterior Bilateral Throughout] Pulse Rate [ From Monitor] Respiratory 18 18 18 Rate Respiratory Rate [Anterior Bilateral Throughout] Blood Pressure 101/49 101/49 96/47 O2 Sat by Pulse 97 97 97 Oximetry 10/09/19 10/09/19 10/09/19 06:10 06:20 06:30 Temperature Pulse Rate 82 83 80 Pulse Rate [ Anterior Bilateral Throughout] Pulse Rate [ From Monitor] Respiratory 18 18 18 Rate Respiratory Rate [Anterior Bilateral Throughout] Blood Pressure 96/47 96/47 93/48 O2 Sat by Pulse 97 97 100 Oximetry 10/09/19 10/09/19 10/09/19 06:40 06:50 07:00 Temperature Pulse Rate 79 77 79 Pulse Rate [ Anterior Bilateral Throughout] Pulse Rate [ From Monitor] Respiratory 18 18 18 Rate Respiratory Rate [Anterior Bilateral Throughout] Blood Pressure 93/48 93/48 97/55 O2 Sat by Pulse 97 97 Oximetry 10/09/19 10/09/19 10/09/19 07:10 07:20 07:30 Temperature Pulse Rate 75 78 74 Pulse Rate [ Anterior Bilateral Throughout] Pulse Rate [ From Monitor] Respiratory 18 18 18 Rate Respiratory Rate [Anterior Bilateral Throughout] Blood Pressure 97/55 97/55 103/69 O2 Sat by Pulse 99 99 Oximetry 10/09/19 10/09/19 10/09/19 07:40 07:50 08:00 Temperature 99.3 F Pulse Rate 75 73 72 Pulse Rate [ 72 Anterior Bilateral Throughout] Pulse Rate [ 76 From Monitor] Respiratory 18 18 18 Rate Respiratory 10 L Rate [Anterior Bilateral Throughout] Blood Pressure 103/69 103/69 96/53 O2 Sat by Pulse 100 100 99 Oximetry 10/09/19 09:16 Temperature Pulse Rate 82 Pulse Rate [ Anterior Bilateral Throughout] Pulse Rate [ From Monitor] Respiratory 13 Rate Respiratory Rate [Anterior Bilateral Throughout] Blood Pressure 98/57 O2 Sat by Pulse 100 Oximetry CBC and BMP: 10/09/19 05:08 10/09/19 05:08 ABG, PT/INR, D-dimer: ABG ABG pH 7.388 pH Units (7.350-7.450) 10/09/19 03:32 ABG pCO2 38.1 mm Hg 10/09/19 03:32 ABG pO2 92.4 mm Hg (80.0-90.0) H 10/09/19 03:32 ABG O2 Saturation 97.1 % (95.0-99.0) 10/09/19 03:32 Abnormal lab findings: Abnormal Labs 10/07/19 10/07/19 10/07/19 14:22 15:40 15:40 WBC Lymph % (Auto) [place] % (Auto) 8.5 H Lymph # [place] # Seg Neutrophils % 73.3 H Seg Neutrophils # ABG pH ABG pO2 152.2 H ABG Base Excess Potassium 3.2 L Carbon Dioxide 21 L BUN Creatinine 0.6 L Glucose 106 H POC Glucose Salicylates Acetaminophen 10/07/19 10/07/19 10/08/19 15:40 15:40 03:59 WBC 12.9 H Lymph % (Auto) 10.0 L [place] % (Auto) 7.6 H Lymph # [place] # 1.0 H Seg Neutrophils % 80.3 H Seg Neutrophils # 10.4 H ABG pH ABG pO2 ABG Base Excess Potassium Carbon Dioxide BUN Creatinine Glucose POC Glucose Salicylates < 0.3 L Acetaminophen < 5.0 L 10/08/19 10/08/19 10/08/19 03:59 04:20 18:05 WBC Lymph % (Auto) [place] % (Auto) Lymph # [place] # Seg Neutrophils % Seg Neutrophils # ABG pH 7.474 H ABG pO2 133.0 H ABG Base Excess Potassium 3.2 L Carbon Dioxide BUN Creatinine Glucose 112 H POC Glucose 118 H Salicylates Acetaminophen 10/09/19 10/09/19 10/09/19 03:32 05:08 05:08 WBC Lymph % (Auto) 8.2 L [place] % (Auto) Lymph # 0.7 L [place] # Seg Neutrophils % 85.0 H Seg Neutrophils # ABG pH ABG pO2 92.4 H ABG Base Excess -2.1 L Potassium Carbon Dioxide 21 L BUN 6 L Creatinine Glucose 162 H POC Glucose Salicylates Acetaminophen
[2019-10-09] MEDS ORDERED: HYDROcodone/HOMATROPINE 5-1.5MG /5 ML ORAL LIQD UNIT DOSE PO PRN (10:24)
[2019-10-09] MEDS ORDERED: ALBUTEROL 8.5 GM INHALATION IH PRN (10:24)
[2019-10-09] MEDS ORDERED: NON-FORMULARY EACH (Budesonide/Formoterol Fumarate [Symbicort 160-4.5 Mcg Inhaler] 10.2 GM IH SCH (10:30)
[2019-10-09] MEDS ORDERED: ALBUTEROL 2.5 MG/3 ML NEBU IH PRN (10:49)
[2019-10-09] MEDS: ARFORMOTEROL 15 MCG/2 ML NEBU IH SCH ×2 (11:42→21:38)
[2019-10-09] MEDS: BUDESONIDE 0.5 MG/2 ML NEBU IH SCH ×2 (11:42→21:28)
--- NOTE | 2019-10-09 11:54 | Progress Note ---
Assessment and Plan / Acute respiratory failure with hypoxia Patient was unresponsive and Hypoxic Duonebs q3 prn, IV ceftriaxone empirically No signs of aspiration s/p extubation today /Acute toxic encephalopathy, resolved -Likely from drug overdose and cocaine abuse / Cocaine abuse MH consult requested will follow recommendation / SLE (systemic lupus erythematosus related syndrome) Not on any meds, need to continue outpatient follow-up following discharge / CHF (congestive heart failure), likely diastolic dysfunction 2d ECHO showed preserved EF / GERD (gastroesophageal reflux disease) cont PPI / Hypokalemia Supplemented / Asthma To cont Singulair, and nebs treatment / DVT prophylaxis On Heparin and GI prophylaxis Transfer out of telemetry if clinically remains stable Brief history: 49-year-old female presents to the emergency department by EMS from home unresponsive with an alleged overdose on cocaine and benzodiazepines. The patient was receiving bag valve ventilation due to her unresponsiveness upon arrival. In reviewing the patient's previous visits and charts, she appears to have history of asthma, CHF and GerD. The patient was given a total of 4 mg of Narcan by EMS without much improvement. She was intubated in the ER and call for admission. Subjective Date of service: 10/09/19 Interval history: Patient seen and examined. Medical records and medication list reviewed. No acute event overnight noted by the RN. Patient EXTUBATED THIS AM family at bedside, UPDTAED Refused any suicidal thought or attempt Objective - Exam Narrative Exam: General appearance: Present: no distress, well-nourished, - EENT Eyes: Present: PERRL ENT: hearing intact, clear oral mucosa, - Neck Neck: Present: supple, normal ROM - Respiratory Respiratory effort: normal Respiratory: bilateral: CTA, no rhonchi - Cardiovascular Heart rate: 88 Rhythm: regular Heart Sounds: Present: S1 & S2. Absent: rub, click - Extremities Extremities: no ischemia, pulses intact, pulses symmetrical, No edema Peripheral Pulses: within normal limits - Abdominal General gastrointestinal: Present: soft, non-tender, non-distended, normal bowel sounds Female genitourinary: Present: normal - Rectal Rectal Exam: deferred - Integumentary Integumentary: Present: clear, warm, dry - Musculoskeletal Musculoskeletal: strength equal bilaterally, other - Psychiatric Psychiatric: other - Neurologic Neurologic: moves all extremities, aaox3 - Allied Health Allied health notes reviewed: nursing, case management - Constitutional Vitals: Vital Signs - 12hr 10/09/19 10/09/19 10/09/19 00:00 00:07 00:10 Temperature 97.9 F Pulse Rate 75 76 80 Pulse Rate [ Anterior Bilateral Throughout] Pulse Rate [ 76 From Monitor] Respiratory 18 18 18 Rate Respiratory Rate [Anterior Bilateral Throughout] Blood Pressure 101/52 101/52 101/52 O2 Sat by Pulse 98 99 98 Oximetry 10/09/19 10/09/19 10/09/19 00:16 00:20 00:30 Temperature Pulse Rate 79 81 82 Pulse Rate [ Anterior Bilateral Throughout] Pulse Rate [ From Monitor] Respiratory 18 18 17 Rate Respiratory Rate [Anterior Bilateral Throughout] Blood Pressure 101/52 101/52 106/52 O2 Sat by Pulse 98 97 Oximetry 10/09/19 10/09/19 10/09/19 00:40 00:50 01:00 Temperature Pulse Rate 80 77 79 Pulse Rate [ Anterior Bilateral Throughout] Pulse Rate [ From Monitor] Respiratory 18 17 18 Rate Respiratory Rate [Anterior Bilateral Throughout] Blood Pressure 106/52 106/52 102/54 O2 Sat by Pulse 97 96 Oximetry 10/09/19 10/09/19 10/09/19 01:10 01:20 01:30 Temperature Pulse Rate 77 78 74 Pulse Rate [ Anterior Bilateral Throughout] Pulse Rate [ From Monitor] Respiratory 18 17 18 Rate Respiratory Rate [Anterior Bilateral Throughout] Blood Pressure 102/54 102/54 95/51 O2 Sat by Pulse 97 97 Oximetry 10/09/19 10/09/19 10/09/19 01:40 01:50 02:00 Temperature Pulse Rate 77 77 74 Pulse Rate [ Anterior Bilateral Throughout] Pulse Rate [ From Monitor] Respiratory 18 18 18 Rate Respiratory Rate [Anterior Bilateral Throughout] Blood Pressure 95/51 95/51 101/54 O2 Sat by Pulse 97 97 96 Oximetry 10/09/19 10/09/19 10/09/19 02:10 02:20 02:25 Temperature Pulse Rate 78 78 Pulse Rate [ 74 Anterior Bilateral Throughout] Pulse Rate [ From Monitor] Respiratory 18 18 Rate Respiratory 19 Rate [Anterior Bilateral Throughout] Blood Pressure 101/54 101/54 O2 Sat by Pulse 96 98 Oximetry 10/09/19 10/09/19 10/09/19 02:30 02:40 02:50 Temperature Pulse Rate 69 72 76 Pulse Rate [ Anterior Bilateral Throughout] Pulse Rate [ From Monitor] Respiratory 18 18 18 Rate Respiratory Rate [Anterior Bilateral Throughout] Blood Pressure 104/61 104/61 104/61 O2 Sat by Pulse 100 99 Oximetry 10/09/19 10/09/19 10/09/19 03:00 03:10 03:20 Temperature Pulse Rate 78 83 81 Pulse Rate [ Anterior Bilateral Throughout] Pulse Rate [ From Monitor] Respiratory 18 18 13 Rate Respiratory Rate [Anterior Bilateral Throughout] Blood Pressure 117/68 117/68 117/68 O2 Sat by Pulse 99 99 99 Oximetry 10/09/19 10/09/19 10/09/19 03:23 03:30 03:40 Temperature Pulse Rate 84 92 H 89 Pulse Rate [ Anterior Bilateral Throughout] Pulse Rate [ From Monitor] Respiratory 20 18 Rate Respiratory Rate [Anterior Bilateral Throughout] Blood Pressure 117/68 124/86 124/86 O2 Sat by Pulse 98 99 100 Oximetry 10/09/19 10/09/19 10/09/19 03:50 04:00 04:10 Temperature 98 F Pulse Rate 83 81 88 Pulse Rate [ Anterior Bilateral Throughout] Pulse Rate [ 81 From Monitor] Respiratory 18 18 18 Rate Respiratory Rate [Anterior Bilateral Throughout] Blood Pressure 124/86 116/70 116/70 O2 Sat by Pulse 99 97 100 Oximetry 10/09/19 10/09/19 10/09/19 04:20 04:30 04:40 Temperature Pulse Rate 93 H 95 H 90 Pulse Rate [ Anterior Bilateral Throughout] Pulse Rate [ From Monitor] Respiratory 16 17 18 Rate Respiratory Rate [Anterior Bilateral Throughout] Blood Pressure 116/70 109/62 109/62 O2 Sat by Pulse 99 98 97 Oximetry 10/09/19 10/09/19 10/09/19 04:50 05:00 05:10 Temperature Pulse Rate 91 H 89 85 Pulse Rate [ Anterior Bilateral Throughout] Pulse Rate [ From Monitor] Respiratory 18 18 19 Rate Respiratory Rate [Anterior Bilateral Throughout] Blood Pressure 109/62 101/55 101/55 O2 Sat by Pulse 97 99 Oximetry 10/09/19 10/09/19 10/09/19 05:20 05:30 05:40 Temperature Pulse Rate 85 86 84 Pulse Rate [ Anterior Bilateral Throughout] Pulse Rate [ From Monitor] Respiratory 18 18 18 Rate Respiratory Rate [Anterior Bilateral Throughout] Blood Pressure 101/55 101/49 101/49 O2 Sat by Pulse 97 98 97 Oximetry 10/09/19 10/09/19 10/09/19 05:50 06:00 06:10 Temperature Pulse Rate 81 82 82 Pulse Rate [ Anterior Bilateral Throughout] Pulse Rate [ From Monitor] Respiratory 18 18 18 Rate Respiratory Rate [Anterior Bilateral Throughout] Blood Pressure 101/49 96/47 96/47 O2 Sat by Pulse 97 97 97 Oximetry 10/09/19 10/09/19 10/09/19 06:20 06:30 06:40 Temperature Pulse Rate 83 80 79 Pulse Rate [ Anterior Bilateral Throughout] Pulse Rate [ From Monitor] Respiratory 18 18 18 Rate Respiratory Rate [Anterior Bilateral Throughout] Blood Pressure 96/47 93/48 93/48 O2 Sat by Pulse 97 100 97 Oximetry 10/09/19 10/09/19 10/09/19 06:50 07:00 07:10 Temperature Pulse Rate 77 79 75 Pulse Rate [ Anterior Bilateral Throughout] Pulse Rate [ From Monitor] Respiratory 18 18 18 Rate Respiratory Rate [Anterior Bilateral Throughout] Blood Pressure 93/48 97/55 97/55 O2 Sat by Pulse 97 99 Oximetry 10/09/19 10/09/19 10/09/19 07:20 07:30 07:40 Temperature Pulse Rate 78 74 75 Pulse Rate [ Anterior Bilateral Throughout] Pulse Rate [ From Monitor] Respiratory 18 18 18 Rate Respiratory Rate [Anterior Bilateral Throughout] Blood Pressure 97/55 103/69 103/69 O2 Sat by Pulse 99 100 Oximetry 10/09/19 10/09/19 10/09/19 07:50 08:00 09:16 Temperature 99.3 F Pulse Rate 73 72 82 Pulse Rate [ 72 Anterior Bilateral Throughout] Pulse Rate [ 76 From Monitor] Respiratory 18 18 13 Rate Respiratory 10 L Rate [Anterior Bilateral Throughout] Blood Pressure 103/69 96/53 98/57 O2 Sat by Pulse 100 99 100 Oximetry - Labs CBC & Chem 7: 10/09/19 05:08 10/09/19 05:08 Labs: Abnormal lab results 10/08/19 10/09/19 10/09/19 Range/Units 18:05 03:32 05:08 Lymph % (Auto) 8.2 L (13.4-35.0) % Lymph # 0.7 L (1.2-5.4) K/mm3 Seg Neutrophils % 85.0 H (40.0-70.0) % ABG pO2 92.4 H (80.0-90.0) mm Hg ABG Base Excess -2.1 L (-2.0-3.0) mmol/L Carbon Dioxide (22-30) mmol/L BUN (7-17) mg/dL Glucose (65-100) mg/dL POC Glucose 118 H (70-105) 10/09/19 10/09/19 Range/Units 05:08 11:36 Lymph % (Auto) (13.4-35.0) % Lymph # (1.2-5.4) K/mm3 Seg Neutrophils % (40.0-70.0) % ABG pO2 (80.0-90.0) mm Hg ABG Base Excess (-2.0-3.0) mmol/L Carbon Dioxide 21 L (22-30) mmol/L BUN 6 L (7-17) mg/dL Glucose 162 H (65-100) mg/dL POC Glucose 112 H (70-105)
[2019-10-09] MEDS: ALPRAZolam 0.5 MG TAB PO SCH ×2 (13:16→21:37)
[2019-10-09] MEDS: PANTOPRAZOLE 40 MG TAB PO SCH (13:16)
[2019-10-09] MEDS: atenoloL 25 MG TAB PO SCH (13:16)
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
[2019-10-09] MEDS: busPIRone 10 MG TAB PO SCH ×2 (16:15→21:36)
[2019-10-09] MEDS: guaiFENesin ER 600 MG TAB PO SCH (21:36)
[2019-10-09] MEDS ORDERED: MONTELUKAST 10 MG TAB PO SCH (22:00)
[2019-10-10] MEDS: IPRATROPIUM/ALBUTEROL SULFATE 3 ML AMPUL.NEB IH SCH ×3 (03:48→14:42)
[2019-10-10] MEDS: BUDESONIDE 0.5 MG/2 ML NEBU IH SCH (07:29)
[2019-10-10] MEDS: ARFORMOTEROL 15 MCG/2 ML NEBU IH SCH (07:29)
--- NOTE | 2019-10-10 08:24 | XRay Report ---
CHEST 1 VIEW INDICATION: follow up respiratory failure. COMPARISON: 10/09/2019 FINDINGS: Support devices: None. Endotracheal tube has been removed. Heart: Within normal limits. Pulmonary vasculature: Normal. Lungs/Pleura: The lungs are normally expanded and clear. No pleural effusion. No pneumothorax. Additional findings: None. IMPRESSION: 1. Normal chest. Signer Name: Dominick Chavis MD Signed: 10/10/2019 8:20 AM Workstation Name: [id number]
[2019-10-10] MEDS ORDERED: ASPIRIN 81 MG TAB CHEW PO SCH (10:00)
[2019-10-10] MEDS ORDERED: HYDROXYCHLOROQUINE 200 MG TAB PO SCH (10:00)
[2019-10-10] MEDS: guaiFENesin ER 600 MG TAB PO SCH (10:48)
[2019-10-10] MEDS: ALPRAZolam 0.5 MG TAB PO SCH (10:48)
[2019-10-10] MEDS: atenoloL 25 MG TAB PO SCH (10:48)
[2019-10-10] MEDS: PANTOPRAZOLE 40 MG TAB PO SCH (10:48)
[2019-10-10] MEDS: methylPREDNISolone Sod Succinate 40 MG/1 ML INJ IV SCH (10:49)
[2019-10-10] MEDS: HEPARIN 5,000 UNIT/1 ML VIAL SUB-Q SCH (10:59)
[2019-10-10 12:40] VITALS: BP 97/51
[2019-10-10] MEDS: cefTRIAXone/NS 2 GM/100 ML 2 GM/100 ML BAG IV SCH (12:43)
[2019-10-10] MEDS: busPIRone 10 MG TAB PO SCH (12:49)
--- NOTE | 2019-10-10 13:40 | Progress Note ---
Assessment and Plan Pt is alert and awake. She is resting on room air with an O2 saturation of 96%. She reports a non-productive cough. She denies any shortness of breath or chest pain. She is a current smoker of 1/2 a pack per day for the past 20 years, recom mended patient to stop smoking. She reports current cocaine use and is a social drinker. She has a PMHx of lupus and GERD. She is allergic to iodine and IV contrast. She is currently unemployed and has 4 children and is unmarried. Her chest xray from today 10/10/19 reported normal. - Patient Problems (1) Acute respiratory failure Current Visit: Yes Status: Acute Qualifiers: Respiratory failure complication: unspecified whether with hypoxia or hypercapnia Qualified Code(s): J96.00 - Acute respiratory failure, unspecified whether with hypoxia or hypercapnia Plan to address problem: Improved, pt is on room air now with an O2 saturation of 96% Chest xray 10/10/19 reported normal (2) Cocaine abuse Current Visit: Yes Status: Chronic Plan to address problem: Patient counseled to stop using cocaine. (3) GERD (gastroesophageal reflux disease) Current Visit: Yes Status: Chronic Qualifiers: Esophagitis presence: without esophagitis Qualified Code(s): K21.9 - Gastro-esophageal reflux disease without esophagitis Plan to address problem: Continue Protonix. (4) SLE (systemic lupus erythematosus related syndrome) Current Visit: No Status: Chronic Plan to address problem: Management as per primary care. (5) Obesity (BMI 30.0-34.9) Current Visit: Yes Status: Acute Plan to address problem: Recommend to loose weight. Recommend sleep study as an outpatient. (6) Tobacco use Current Visit: Yes Status: Acute Plan to address problem: Pt counseled to stop smoking. Recommend PFTs as an outpatient. Subjective Date of service: 10/10/19 Interval history: Pt is alert and awake. She is resting on room air with an O2 saturation of 96%. She reports a non-productive cough. She denies any shortness of breath or chest pain. She is a current smoker of 1/2 a pack per day for the past 20 years, recommended patient to stop smoking. She reports current cocaine use and is a social drinker. She has a PMHx of lupus and GERD. She is allergic to iodine and IV contrast. She is currently unemployed and has 4 children and is unmarried. Her chest xray from today 10/10/19 reported normal. Objective Vital Signs - 12hr 10/10/19 10/10/19 10/10/19 01:41 01:51 02:00 Temperature Pulse Rate 81 72 72 Pulse Rate [ Anterior Bilateral Throughout] Pulse Rate [ From Monitor] Respiratory 16 16 18 Rate Respiratory Rate [Anterior Bilateral Throughout] Blood Pressure 111/60 111/60 117/49 O2 Sat by Pulse 98 97 98 Oximetry 10/10/19 10/10/19 10/10/19 02:11 02:21 02:31 Temperature Pulse Rate 75 78 76 Pulse Rate [ Anterior Bilateral Throughout] Pulse Rate [ From Monitor] Respiratory 14 18 20 Rate Respiratory Rate [Anterior Bilateral Throughout] Blood Pressure 117/49 117/49 117/49 O2 Sat by Pulse 97 97 99 Oximetry 10/10/19 10/10/19 10/10/19 02:41 02:51 03:01 Temperature Pulse Rate 80 79 65 Pulse Rate [ Anterior Bilateral Throughout] Pulse Rate [ From Monitor] Respiratory 17 14 15 Rate Respiratory Rate [Anterior Bilateral Throughout] Blood Pressure 117/49 117/49 117/49 O2 Sat by Pulse 98 97 96 Oximetry 10/10/19 10/10/19 10/10/19 03:11 03:20 03:21 Temperature Pulse Rate 61 61 63 Pulse Rate [ Anterior Bilateral Throughout] Pulse Rate [ 81 From Monitor] Respiratory 14 15 16 Rate Respiratory Rate [Anterior Bilateral Throughout] Blood Pressure 117/49 117/49 O2 Sat by Pulse 97 96 95 Oximetry 10/10/19 10/10/19 10/10/19 03:31 03:41 03:51 Temperature Pulse Rate 69 72 69 Pulse Rate [ Anterior Bilateral Throughout] Pulse Rate [ From Monitor] Respiratory 17 17 15 Rate Respiratory Rate [Anterior Bilateral Throughout] Blood Pressure 117/49 110/58 110/58 O2 Sat by Pulse 96 94 97 Oximetry 10/10/19 10/10/19 10/10/19 03:55 04:01 04:11 Temperature 98.1 F Pulse Rate 79 73 Pulse Rate [ Anterior Bilateral Throughout] Pulse Rate [ From Monitor] Respiratory 17 18 Rate Respiratory Rate [Anterior Bilateral Throughout] Blood Pressure 110/58 110/58 O2 Sat by Pulse 95 95 Oximetry 10/10/19 10/10/19 10/10/19 04:21 04:31 04:41 Temperature Pulse Rate 86 85 70 Pulse Rate [ Anterior Bilateral Throughout] Pulse Rate [ From Monitor] Respiratory 20 19 16 Rate Respiratory Rate [Anterior Bilateral Throughout] Blood Pressure 110/58 110/58 110/58 O2 Sat by Pulse 94 95 94 Oximetry 10/10/19 10/10/19 10/10/19 04:51 05:01 05:11 Temperature Pulse Rate 71 72 68 Pulse Rate [ Anterior Bilateral Throughout] Pulse Rate [ From Monitor] Respiratory 19 17 18 Rate Respiratory Rate [Anterior Bilateral Throughout] Blood Pressure 110/58 110/58 110/58 O2 Sat by Pulse 94 95 95 Oximetry 10/10/19 10/10/19 10/10/19 05:21 05:30 05:31 Temperature Pulse Rate 69 68 68 Pulse Rate [ Anterior Bilateral Throughout] Pulse Rate [ 73 From Monitor] Respiratory 15 15 17 Rate Respiratory Rate [Anterior Bilateral Throughout] Blood Pressure 100/54 100/54 O2 Sat by Pulse 95 96 95 Oximetry 10/10/19 10/10/19 10/10/19 05:41 05:51 06:01 Temperature Pulse Rate 69 69 67 Pulse Rate [ Anterior Bilateral Throughout] Pulse Rate [ From Monitor] Respiratory 16 12 14 Rate Respiratory Rate [Anterior Bilateral Throughout] Blood Pressure 100/54 100/54 100/54 O2 Sat by Pulse 94 96 95 Oximetry 10/10/19 10/10/19 10/10/19 06:11 06:21 06:31 Temperature Pulse Rate 70 67 75 Pulse Rate [ Anterior Bilateral Throughout] Pulse Rate [ From Monitor] Respiratory 14 12 17 Rate Respiratory Rate [Anterior Bilateral Throughout] Blood Pressure 100/54 100/54 100/54 O2 Sat by Pulse 95 95 95 Oximetry 10/10/19 10/10/19 10/10/19 06:41 06:51 07:01 Temperature Pulse Rate 78 66 67 Pulse Rate [ Anterior Bilateral Throughout] Pulse Rate [ From Monitor] Respiratory 16 14 15 Rate Respiratory Rate [Anterior Bilateral Throughout] Blood Pressure 100/54 100/54 100/54 O2 Sat by Pulse 97 95 95 Oximetry 10/10/19 10/10/19 10/10/19 07:11 07:21 07:30 Temperature Pulse Rate 65 69 Pulse Rate [ 68 Anterior Bilateral Throughout] Pulse Rate [ From Monitor] Respiratory 14 14 Rate Respiratory 16 Rate [Anterior Bilateral Throughout] Blood Pressure 100/54 100/54 O2 Sat by Pulse 95 95 Oximetry 10/10/19 10/10/19 10/10/19 07:31 07:41 07:51 Temperature Pulse Rate 73 67 75 Pulse Rate [ Anterior Bilateral Throughout] Pulse Rate [ From Monitor] Respiratory 16 13 17 Rate Respiratory Rate [Anterior Bilateral Throughout] Blood Pressure 108/64 108/64 108/64 O2 Sat by Pulse 96 98 96 Oximetry 10/10/19 10/10/19 10/10/19 08:00 08:11 08:21 Temperature 98.1 F Pulse Rate 68 67 68 Pulse Rate [ Anterior Bilateral Throughout] Pulse Rate [ 68 From Monitor] Respiratory 14 14 13 Rate Respiratory Rate [Anterior Bilateral Throughout] Blood Pressure 110/67 110/67 110/67 O2 Sat by Pulse 94 95 96 Oximetry 10/10/19 10/10/19 10/10/19 08:31 08:41 08:51 Temperature Pulse Rate 72 71 68 Pulse Rate [ Anterior Bilateral Throughout] Pulse Rate [ From Monitor] Respiratory 20 17 15 Rate Respiratory Rate [Anterior Bilateral Throughout] Blood Pressure 110/67 110/67 110/67 O2 Sat by Pulse 95 97 99 Oximetry 10/10/19 10/10/19 10/10/19 09:00 09:11 10:37 Temperature Pulse Rate 68 84 68 Pulse Rate [ Anterior Bilateral Throughout] Pulse Rate [ From Monitor] Respiratory 18 15 Rate Respiratory Rate [Anterior Bilateral Throughout] Blood Pressure 116/69 110/67 111/61 O2 Sat by Pulse 100 95 Oximetry 10/10/19 10/10/19 10:48 11:59 Temperature 97.0 F L Pulse Rate 56 L Pulse Rate [ Anterior Bilateral Throughout] Pulse Rate [ From Monitor] Respiratory 18 Rate Respiratory Rate [Anterior Bilateral Throughout] Blood Pressure 111/71 97/51 O2 Sat by Pulse 96 Oximetry Constitutional: no acute distress, alert Eyes: non-icteric ENT: oropharynx moist Neck: supple, no lymphadenopathy, no JVD Effort: normal Ascultation: Bilateral: diminished breath sounds, rhonchi Cardiovascular: regular rate and rhythm, other (S1,S2, no murmurs, gallops or rubs) Gastrointestinal: normoactive bowel sounds, soft, non-tender, non-distended Integumentary: normal Extremities: no cyanosis, no edema, pink and warm, pulses normal, no ischemia or petechiae Neurologic: normal mental status, non-focal exam Psychiatric: anxious CBC and BMP: 10/09/19 05:08 10/09/19 05:08 ABG, PT/INR, D-dimer: ABG ABG pH 7.388 pH Units (7.350-7.450) 10/09/19 03:32 ABG pCO2 38.1 mm Hg 10/09/19 03:32 ABG pO2 92.4 mm Hg (80.0-90.0) H 10/09/19 03:32 ABG O2 Saturation 97.1 % (95.0-99.0) 10/09/19 03:32 Abnormal lab findings: Abnormal Labs 10/07/19 10/07/19 10/07/19 14:22 15:40 15:40 WBC Lymph % (Auto) Kendall % (Auto) 8.5 H Lymph # [place] # Seg Neutrophils % 73.3 H Seg Neutrophils # ABG pH ABG pO2 152.2 H ABG Base Excess Potassium 3.2 L Carbon Dioxide 21 L BUN Creatinine 0.6 L Glucose 106 H POC Glucose Salicylates Acetaminophen 10/07/19 10/07/19 10/08/19 15:40 15:40 03:59 WBC 12.9 H Lymph % (Auto) 10.0 L Kendall % (Auto) 7.6 H Lymph # Kendall # 1.0 H Seg Neutrophils % 80.3 H Seg Neutrophils # 10.4 H ABG pH ABG pO2 ABG Base Excess Potassium Carbon Dioxide BUN Creatinine Glucose POC Glucose Salicylates < 0.3 L Acetaminophen < 5.0 L 10/08/19 10/08/19 10/08/19 03:59 04:20 18:05 WBC Lymph % (Auto) Kendall % (Auto) Lymph # [place]all # Seg Neutrophils % Seg Neutrophils # ABG pH 7.474 H ABG pO2 133.0 H ABG Base Excess Potassium 3.2 L Carbon Dioxide BUN Creatinine Glucose 112 H POC Glucose 118 H Salicylates Acetaminophen 10/09/19 10/09/19 10/09/19 03:32 05:08 05:08 WBC Lymph % (Auto) 8.2 L Kendall % (Auto) Lymph # 0.7 L [place]all # Seg Neutrophils % 85.0 H Seg Neutrophils # ABG pH ABG pO2 92.4 H ABG Base Excess -2.1 L Potassium Carbon Dioxide 21 L BUN 6 L Creatinine Glucose 162 H POC Glucose Salicylates Acetaminophen 10/09/19 11:36 WBC Lymph % (Auto) Kendall % (Auto) Lymph # Kendall # Seg Neutrophils % Seg Neutrophils # ABG pH ABG pO2 ABG Base Excess Potassium Carbon Dioxide BUN Creatinine Glucose POC Glucose 112 H Salicylates Acetaminophen Chest x-ray: report reviewed (Reported normal chest.), image reviewed
--- NOTE | 2019-10-10 15:12 | Discharge Summary ---
Providers - Providers Date of Admission: 10/07/19 19:35 Date of discharge: 10/10/19 Attending physician: MACARIO DIAZ 10/07/19 19:35 Consult to Dietitian/Nutrition [CONS] Routine Physician Instructions: Reason For Exam: Tube feeding by Juan Antonioff Reason for Consult: Write/Manage Tube Feeding Consult to Physician [CONS] Routine Comment: Consulting Provider: NANCY TAYLOR Physician Instructions: Reason For Exam: Acute respiratory failure 10/07/19 19:38 Consult to Dietitian/Nutrition [CONS] Routine Physician Instructions: Assess nutrtn needs, initiate, modify, manage TF Reason For Exam: Reason for Consult: Write/Manage Tube Feeding Reason for Consult: Write/Manage Tube Feeding 10/07/19 19:48 Consult to Mental Health [CONS] Routine Reason For Exam: Polysubstance abuse Hospitalization Condition: Serious Hospital course: Brief history: 49-year-old female presents to the emergency department by EMS from home unresponsive with an alleged overdose on cocaine and benzodiazepines. The patient was receiving bag valve ventilation due to her unresponsiveness upon arrival. In reviewing the patient's previous visits and charts, she appears to have history of asthma, CHF and GerD. The patient was given a total of 4 mg of Narcan by EMS without much improvement. She was intubated in the ER and call for admission. Discharge diagnosis; / Acute respiratory failure with hypoxia Patient was unresponsive and Hypoxic given Duonebs q3 prn, IV ceftriaxone empirically No signs of aspiration s/p extubation 10/09/19 /Acute toxic encephalopathy, resolved -Likely from drug overdose and cocaine abuse / Cocaine abuse Counseled for cessation /History of anxiety and PTSD -Psychiatry recommended outpatient follow-up and to continue current medications / SLE (systemic lupus erythematosus related syndrome) Not on any meds, need to continue outpatient follow-up following discharge / CHF (congestive heart failure), likely diastolic dysfunction 2d ECHO showed preserved EF / GERD (gastroesophageal reflux disease) cont PPI / Hypokalemia Supplemented / Asthma To cont Singulair, and nebs treatment / DVT prophylaxis On Heparin and GI prophylaxis Disposition: home with Disposition: TO HOME OR SELFCARE Time spent for discharge: 34 minutes Core Measure Documentation - Palliative Care Palliative Care/ Comfort Measures: Not Applicable - Core Measures Any of the following diagnoses?: none Exam - Physical Exam Narrative exam: General appearance: Present: no distress, well-nourished, - EENT Eyes: Present: PERRL ENT: hearing intact, clear oral mucosa, - Neck Neck: Present: supple, normal ROM - Respiratory Respiratory effort: normal Respiratory: bilateral: CTA, no rhonchi - Cardiovascular Heart rate: 88 Rhythm: regular Heart Sounds: Present: S1 & S2. Absent: rub, click - Extremities Extremities: no ischemia, pulses intact, pulses symmetrical, No edema Peripheral Pulses: within normal limits - Abdominal General gastrointestinal: Present: soft, non-tender, non-distended, normal bowel sounds Female genitourinary: Present: normal - Rectal Rectal Exam: deferred - Integumentary Integumentary: Present: clear, warm, dry - Musculoskeletal Musculoskeletal: strength equal bilaterally, other - Psychiatric Psychiatric: other - Neurologic Neurologic: moves all extremities, aaox3 - Allied Health Allied health notes reviewed: nursing, case management - Constitutional Vitals: Temp Pulse Resp BP Pulse Ox 97.0 F L 56 L 18 97/51 96 10/10/19 11:59 10/10/19 11:59 10/10/19 11:59 10/10/19 11:59 10/10/19 11:59 Plan Activity: advance as tolerated Weight Bearing Status: Weight Bear as Tolerated Diet: low fat, low salt Follow up with: PRAMOD SAEED MD [Other] - 3-5 Days
== END 2019-10-10 16:30 | disposition home or self-care (01) | DRG 208 ==
LOC: ED 13:02 → CC1 19:35 → 3A 10-10 09:47
PROVIDERS: ADMIT Internal Medicine; ATTEND Internal Medicine
PROC: 4A033R1 Measurement of Arterial Saturation, Peripheral, Percutaneous Approach (ICD-10-PCS; principal; 2019-10-07)
PROC: 5A1945Z Respiratory Ventilation, 24-96 Consecutive Hours (ICD-10-PCS; 2019-10-07)
PROC: 0BH17EZ Insertion of Endotracheal Airway into Trachea, Via Natural or Artificial Opening (ICD-10-PCS; 2019-10-07)
DX: J96.01 Acute respiratory failure with hypoxia (principal); I50.31 Acute diastolic (congestive) heart failure; G92 Toxic encephalopathy; K21.9 Gastro-esophageal reflux disease without esophagitis; I11.0 Hypertensive heart disease with heart failure; J45.909 Unspecified asthma, uncomplicated; T40.5X1A Poisoning by cocaine, accidental (unintentional), initial encounter; T42.4X1A Poisoning by benzodiazepines, accidental (unintentional), initial encounter; E66.9 Obesity, unspecified; F41.1 Generalized anxiety disorder; M32.9 Systemic lupus erythematosus, unspecified; E87.6 Hypokalemia; F43.10 Post-traumatic stress disorder, unspecified; F14.10 Cocaine abuse, uncomplicated; Z98.51 Tubal ligation status; F19.10 Other psychoactive substance abuse, uncomplicated; Z91.030 Bee allergy status; Y92.89 Other specified places as the place of occurrence of the external cause; Z91.041 Radiographic dye allergy status; Z79.899 Other long term (current) drug therapy; Z68.33 Body mass index [BMI] 33.0-33.9, adult; Z71.6 Tobacco abuse counseling; Z72.0 Tobacco use
CPT/HCPCS: 36415; 36600; 70450; 71045; 74018; 80048; 80053; 80307; 80320; 81001; 82140; 82803; 82962; 84443; 84484; 85025; 87070; 87205; 93005; 93010; 93306; 94002; 94003; 94640; 96365; 96366; 96375; G0378; G0480; J0696; J1644; J2250; J2270; J2704; J2920; J3480; J7042

== ENCOUNTER 2020-02-26 08:50 | Emergency (ER) | payer OTHER ==
[2020-02-26 08:59] VITALS: BP 128/83
--- NOTE | 2020-02-26 09:35 | XRay Report ---
LEFT TOE(S) 3 VIEW(S) INDICATION / CLINICAL INFORMATION: pain/trauma . 4th digit trauma. COMPARISON: None available. FINDINGS: BONES / JOINT(S): There is a mildly displaced, oblique fracture of the mid shaft of the proximal phal anx of the 4th toe. There is slight lateral angulation of the distal 4th toe. No other fracture. No s ignificant arthritis. SOFT TISSUES: No significant abnormality. ADDITIONAL FINDINGS: None. Signer Name: Yaneth Flores MD Signed: 02/26/2020 9:31 AM Workstation Name: [id number]
[2020-02-26] MEDS ORDERED: HYDROcodone/ACETAMINOPHEN 10-325MG TAB PO ONE (10:11)
[2020-02-26] MEDS ORDERED: LIDOCAINE (2%) 20 MG/1 ML VIAL 20 ML MDV INFILTRATI ONE (10:11)
--- NOTE | 2020-02-26 10:26 | Emergency Department Report ---
ED Lower Extremity HPI - General Chief Complaint: Extremity Injury, Lower Stated Complaint: FOOT PAIN Time Seen by Provider: 02/26/20 09:39 Source: patient Mode of arrival: Wheelchair Limitations: No Limitations - History of Present Illness Initial Comments: This is a 49-year-old female nontoxic, well nourished in appearance, no acute signs of distress presents to the ED with c/o of left 4th toe pain. Patient stated that she hit the corner of the couch. Patient denies any other trauma. Patient denies any numbness, tingling, fever, chills, nausea, vomiting, chest pain, shortness of breath, headache, stiff neck. Patient denies any joint swelling or joint redness. Patient denies decreased range of motion. Patient stated has decreased gait due to pain. MD Complaint: foot injury -: This morning Injury: Toes: Left Severity: moderate Severity scale (0 -10): 8 Improves With: immobilization Worsens With: weight bearing, movement, palpation Context: direct blow Associated Symptoms: able to partially bear weight, ambulatory. denies: snap/pop sensation, swelling, numbness, tingling - Related Data Home Medications Medication Instructions Recorded Confirmed Last Taken atenoloL [Tenormin] 25 mg PO DAILY 12/28/18 10/09/19 10/06/19 busPIRone [Buspar] 15 mg PO TID 12/28/18 10/09/19 10/06/19 Gabapentin [Gralise] 600 mg PO QDAY 10/09/19 10/09/19 10/06/19 Venlafaxine [Effexor 25mg tab] 25 mg PO QDAY 10/09/19 10/09/19 Unknown diphenhydrAMINE [Benadryl CAP] 25 mg PO QHS PRN 10/09/19 10/09/19 Unknown Previous Rx's Medication Instructions Recorded Last Taken Type ALBUTEROL Inhaler(NF) [VENTOLIN 1 puff IH Q4HR PRN #1 inha 07/10/18 Unknown Rx Inhaler(NF)] Aspirin [Aspirin BABY CHEW TAB] 81 mg PO QDAY #30 tab.chew 12/30/18 10/06/19 Rx Hydroxychloroquine [Plaquenil] 200 mg PO QDAY 30 Days tablet 12/30/18 10/06/19 Rx ALPRAZolam [Xanax TAB] 0.5 mg PO Q12HR #10 tablet 05/04/19 Unknown Rx Budesonide/Formoterol Fumarate 10.2 gm IH BID 30 Days hfa.aer.ad 05/04/19 Unknown Rx [Symbicort 160-4.5 Mcg Inhaler] HYDROcodone/HOMATROP 5-1.5 10 ml PO Q6H PRN #200 ml 05/04/19 Unknown Rx [HYDROcodone-Homatropin 5-1.5 mg per 5 ML] Montelukast [Singulair] 10 mg PO QHS 30 Days tablet 05/04/19 10/06/19 Rx Pantoprazole [Protonix TAB] 40 mg PO DAILY #30 tablet 05/04/19 10/06/19 Rx Prednisone [predniSONE 10 mg 10 mg PO .TAPER #1 tab.ds.pk 05/04/19 Unknown Rx (6-Day Pack, 21 Tabs)] guaiFENesin ER [Mucinex ER] 600 mg PO BID #7 tablet 05/04/19 Unknown Rx oxyCODONE /ACETAMINOPHEN [Percocet 1 tab PO Q4H PRN #14 tablet 05/04/19 Unknown Rx 5/325 mg] Naproxen 500 mg PO Q12H PRN #20 tablet 02/26/20 Unknown Rx Allergies Allergy/AdvReac Type Severity Reaction Status Date / Time bee venom protein (honey bee) Allergy Shortness Verified 07/10/18 16:39 of Breath iv contrast Allergy Hives Uncoded 07/10/18 16:36 ED Review of Systems ROS: Stated complaint: FOOT PAIN Other details as noted in HPI Constitutional: denies: chills, fever Eyes: denies: eye pain, eye discharge, vision change ENT: denies: ear pain, throat pain Respiratory: denies: cough, shortness of breath, wheezing Cardiovascular: denies: chest pain, palpitations Endocrine: no symptoms reported Gastrointestinal: denies: abdominal pain, nausea, diarrhea Genitourinary: denies: urgency, dysuria, discharge Musculoskeletal: denies: back pain, joint swelling, arthralgia Skin: denies: rash, lesions Neurological: denies: headache, weakness, paresthesias Psychiatric: denies: anxiety, depression Hematological/Lymphatic: denies: easy bleeding, easy bruising ED Past Medical Hx - Past Medical History Previous Medical History?: Yes Hx Hypertension: Yes Hx Congestive Heart Failure: Yes Hx Diabetes: No Hx Asthma: Yes Hx COPD: No Additional medical history: Lupus - Surgical History Past Surgical History?: Yes Additional Surgical History: tubal ligation. endometrial ablasion - Social History Smoking Status: Current Every Day Smoker Substance Use Type: None - Medications Home Medications: Home Medications Medication Instructions Recorded Confirmed Last Taken Type ALBUTEROL Inhaler(NF) [VENTOLIN 1 puff IH Q4HR PRN #1 inha 07/10/18 10/09/19 Unknown Rx Inhaler(NF)] atenoloL [Tenormin] 25 mg PO DAILY 12/28/18 10/09/19 10/06/19 History busPIRone [Buspar] 15 mg PO TID 12/28/18 10/09/19 10/06/19 History Aspirin [Aspirin BABY CHEW TAB] 81 mg PO QDAY #30 tab.chew 12/30/18 10/09/19 10/06/19 Rx Hydroxychloroquine [Plaquenil] 200 mg PO QDAY 30 Days tablet 12/30/18 10/09/19 10/06/19 Rx ALPRAZolam [Xanax TAB] 0.5 mg PO Q12HR #10 tablet 05/04/19 10/09/19 Unknown Rx Budesonide/Formoterol Fumarate 10.2 gm IH BID 30 Days hfa.aer.ad 05/04/19 10/09/19 Unknown Rx [Symbicort 160-4.5 Mcg Inhaler] HYDROcodone/HOMATROP 5-1.5 10 ml PO Q6H PRN #200 ml 05/04/19 10/09/19 Unknown Rx [HYDROcodone-Homatropin 5-1.5 mg per 5 ML] Montelukast [Singulair] 10 mg PO QHS 30 Days tablet 05/04/19 10/09/19 10/06/19 Rx Pantoprazole [Protonix TAB] 40 mg PO DAILY #30 tablet 05/04/19 10/09/19 10/06/19 Rx Prednisone [predniSONE 10 mg 10 mg PO .TAPER #1 tab.ds.pk 05/04/19 10/09/19 Unknown Rx (6-Day Pack, 21 Tabs)] guaiFENesin ER [Mucinex ER] 600 mg PO BID #7 tablet 05/04/19 10/09/19 Unknown Rx oxyCODONE /ACETAMINOPHEN [Percocet 1 tab PO Q4H PRN #14 tablet 05/04/19 10/09/19 Unknown Rx 5/325 mg] Gabapentin [Gralise] 600 mg PO QDAY 10/09/19 10/09/19 10/06/19 History Venlafaxine [Effexor 25mg tab] 25 mg PO QDAY 10/09/19 10/09/19 Unknown History diphenhydrAMINE [Benadryl CAP] 25 mg PO QHS PRN 10/09/19 10/09/19 Unknown History Naproxen 500 mg PO Q12H PRN #20 tablet 02/26/20 Unknown Rx ED Physical Exam - General Limitations: No Limitations General appearance: alert, in no apparent distress - Head Head exam: Present: atraumatic, normocephalic - Extremities Exam Extremities exam: Present: full ROM, tenderness, normal capillary refill. Absent: joint swelling - Expanded Lower Extremity Exam Left Hip exam: Present: normal inspection, full ROM. Absent: tenderness, swelling Upper Leg exam: Present: normal inspection, full ROM. Absent: tenderness, swelling Knee exam: Present: normal inspection, full ROM. Absent: tenderness, swelling Lower Leg exam: Present: normal inspection, full ROM. Absent: tenderness, swelling Ankle exam: Present: normal inspection, full ROM. Absent: tenderness, swelling Foot/Toe exam: Present: full ROM, tenderness, ecchymosis, deformity, dislocation. Absent: swelling, abrasion, laceration, crepidus, erythema, amputation, puncture wound, foreign body, calcaneal tenderness, tenderness at base of 5th metatarsal, nail avulsion, subungual hematoma Neuro vascular tendon exam: Present: no vascular compromise Gait: Positive: observed and limited by pain - Back Exam Back exam: Present: normal inspection, full ROM. Absent: tenderness, CVA tenderness (R), CVA tenderness (L), muscle spasm, paraspinal tenderness, vertebral tenderness, rash noted - Neurological Exam Neurological exam: Present: alert, oriented X3 - Psychiatric Psychiatric exam: Present: normal affect, normal mood - Skin Skin exam: Present: warm, dry, intact, normal color. Absent: rash ED Course Vital Signs 02/26/20 02/26/20 08:57 10:14 Temperature 98 F Pulse Rate 88 Respiratory 16 20 Rate Blood Pressure 128/83 [Right] O2 Sat by Pulse 96 Oximetry - Reevaluation(s) Reevaluation #1: 02/26/20 10:26 Patient is speaking in full sentences with no signs of distress noted. - Procedure Description Procedures done: Under sterile field, I used Betadine to clean the area. I then used 40 mL of normal saline to flush the area. I then used 2% lidocaine plain and injected 3 mL for digital block to the proximal toe. Toe distal has been manipulated for reduction. Patient tolerated procedure well with no signs of distress. ED Lower Extremity MDM - Radiology Data Referring Physician: ED LILIAM Patient Name: ROCKY VÁZQUEZ Date of : 1970 Sex: Female Report Date: 2020-02-26 Report Status: Finalized [facility] [address] [place] [address] XRay Report Signed Patient: ROCKY VÁZQUEZ MR#: [id number] : 1970 Acct:[id number] Age/Sex: 49 / F ADM Date: 02/26/20 Loc: ED Attending Dr: Ordering Physician: ALEJANDRA RICKETTS MD Date of Service: 02/26/20 Procedure(s): XR toe(s) 2+V LT Accession Number(s): [id number] cc: ED MD LILIAM Fluoro Time In Minutes: LEFT TOE(S) 3 VIEW(S) INDICATION / CLINICAL INFORMATION: pain/trauma . 4th digit trauma. COMPARISON: None available. FINDINGS: BONES / JOINT(S): There is a mildly displaced, oblique fracture of the mid shaft of the proximal phalanx of the 4th toe. There is slight lateral angulation of the distal 4th toe. No other fracture. No significant arthritis. SOFT TISSUES: No significant abnormality. ADDITIONAL FINDINGS: None. Signer Name: Yaneth Flores MD Signed: 02/26/2020 9:31 AM Workstation Name: [id number] Transcribed By: DT Dictated By: Bakari Flores MD Electronically Authenticated By: Bakari Flores MD Signed Date/Time: 02/26/20 0931 Referring Physician: MIKE VALENCIA Patient Name: ROCKY VÁZQUEZ Date of : 1970 Sex: Female Report Date: 2020-02-26 Report Status: Finalized [facility] [address] [place] [address] XRay Report Signed Patient: ROCKY VÁZQUEZ MR#: [id number] : 1970 Acct:[id number] Age/Sex: 49 / F ADM Date: 02/26/20 Loc: ED Attending Dr: Ordering Physician: MIKE VALENCIA NP Date of Service: 02/26/20 Procedure(s): XR foot 3+V LT Accession Number(s): [id number] cc: MIKE VALENCIA NP Fluoro Time In Minutes: LEFT FOOT 3 VIEWS INDICATION / CLINICAL INFORMATION: post reduction COMPARISON: 02/26/2020, 0921 hours FINDINGS: BONES / JOINT(S): Fracture of the proximal phalanx of the fourth toe is noted. Fragments are in near anatomic alignment . SOFT TISSUES: No significant abnormality. ADDITIONAL FINDINGS: None. Signer Name: Nicanor Mcguire MD Signed: 02/26/2020 11:58 AM Workstation Name: [id number] Transcribed By: Dictated By: Nicanor Mcguire MD Electronically Authenticated By: Nicanor Mcguire MD Signed Date/Time: 02/26/20 1158 - Medical Decision Making This is a 49-year-old female that presents with toe fracture and dislocation. Patient is stable and was examined by me. I referred patient to an orthopedic doctor for further evaluation for possible MRI. X-ray has been obtained and dictated by the radiologist. Patient is notified of the x-ray report with noted by the patient. Post reduction done. Patient received a kaushik tape and ortho shoe. Patient was instructed to RICE therapy. Patient received [place] for pain and stated that family member will drive the patient home after discharge due to possible drowsiness. Patient is discharged with Naproxen. At time of discharge, the patient does not seem toxic or ill in appearance. No acute signs of distress noted. Patient agrees to discharge treatment plan of care. No further questions noted by the patient. Critical care attestation.: If time is entered above; I have spent that time in minutes in the direct care of this critically ill patient, excluding procedure time. ED Disposition Clinical Impression: Toe fracture, left Qualifiers: Encounter type: initial encounter Toe: lesser toe Fracture type: closed Phalanx: middle Fracture alignment: displaced Qualified Code(s): S92.522A - Displaced fracture of middle phalanx of left lesser toe(s), initial encounter f or closed fracture Disposition: TO HOME OR SELFCARE Is pt being admited?: No Does the pt Need Aspirin: No Condition: Stable Instructions: Toe Fracture (ED), RICE Therapy (ED) Additional Instructions: Follow-up with a orthopedic doctor in 3-5 days or if symptoms worsen and continue return to emergency room as soon as possible. Prescriptions: Naproxen 500 mg PO Q12H PRN #20 tablet PRN Reason: Pain , Severe (7-10) Referrals: DIPTI WILSON DO [Primary Care Provider] - 3-5 Days PRIMARY CARE, [Referring] - 3-5 Days BETTINA ROCHA MD [Staff Physician] - 3-5 Days
--- NOTE | 2020-02-26 12:03 | XRay Report ---
LEFT FOOT 3 VIEWS INDICATION / CLINICAL INFORMATION: post reduction COMPARISON: 02/26/2020, 0921 hours FINDINGS: BONES / JOINT(S): Fracture of the proximal phalanx of the fourth toe is noted. Fragments are in near anatomic alignment . SOFT TISSUES: No significant abnormality. ADDITIONAL FINDINGS: None. Signer Name: Nicanor Mcguire MD Signed: 02/26/2020 11:58 AM Workstation Name: [id number]
== END 2020-02-26 12:29 | disposition home or self-care (01) ==
LOC: ED 08:50
DX: S92.592A Other fracture of left lesser toe(s), initial encounter for closed fracture (principal); I11.0 Hypertensive heart disease with heart failure; I50.9 Heart failure, unspecified; J45.909 Unspecified asthma, uncomplicated; F17.200 Nicotine dependence, unspecified, uncomplicated; Z98.51 Tubal ligation status; Z98.890 Other specified postprocedural states; Z79.82 Long term (current) use of aspirin; Z79.1 Long term (current) use of non-steroidal anti-inflammatories (NSAID); Z79.899 Other long term (current) drug therapy; Z91.030 Bee allergy status; Z91.041 Radiographic dye allergy status; W20.8XXA Other cause of strike by thrown, projected or falling object, initial encounter; Y93.89 Activity, other specified; Y92.89 Other specified places as the place of occurrence of the external cause; Y99.8 Other external cause status
CPT/HCPCS: 99283

== ENCOUNTER 2020-06-27 15:57 | Inpatient (IN) | payer OTHER, SELFPAY ==
[2020-06-27] MEDS ORDERED: MAGNESIUM SULFATE 2 GM/50 ML BAG IV ONE ×2 (16:08→17:12)
[2020-06-27] MEDS ORDERED: methylPREDNISolone Sod Succinate 125 MG/2 ML INJ ONE (16:08)
[2020-06-27] MEDS ORDERED: IPRATROPIUM 0.02% NEBU 2.5 ML IH ONE ×5 (16:10→22:43)
[2020-06-27] MEDS ORDERED: ALBUTEROL 2.5 MG/3 ML NEBU IH ONE ×5 (16:10→22:42)
--- NOTE | 2020-06-27 17:01 | XRay Report ---
CHEST 1 VIEW 06/27/2020 3:55 PM INDICATION / CLINICAL INFORMATION: sob. COMPARISON: 10/10/2019. FINDINGS: SUPPORT DEVICES: None. HEART / MEDIASTINUM: No significant abnormality. LUNGS / PLEURA: No significant pulmonary or pleural abnormality. No pneumothorax. ADDITIONAL FINDINGS: No significant additional findings. IMPRESSION: No acute cardiopulmonary abnormality. Signer Name: Satniago Denny MD Signed: 06/27/2020 4:57 PM Workstation Name: [id number]
[2020-06-27] MEDS ORDERED: methylPREDNISolone Sod Succinate 125 MG/2 ML INJ IV ONE (17:12)
[2020-06-27 17:14] LABS: Hematocrit 40.9 % (30.3-42.9); Hemoglobin 13.8 gm/dl (10.1-14.3); Mean Corpuscular HGB Conc 34 % (30-34); Mean Corpuscular Volume 89 fl (79-97); Platelet Count 269 K/mm3 (140-440); Red Cell Distribution Width 13.1 % (13.2-15.2)
--- NOTE | 2020-06-27 17:19 | Emergency Department Report ---
ED Shortness of Breath HPI - General Chief Complaint: Dyspnea/Respdistress Stated Complaint: SOB/HEADACHE Time Seen by Provider: 06/27/20 16:22 Source: patient Mode of arrival: Ambulatory Limitations: No Limitations - History of Present Illness Initial Comments: Patient is here with severe shortness of breath, severe wheezing x 1 day progressively worsening. H/o asthma with frequent exacerbation. last admission in september with intubation. Patient recently traveled to [place], and rise and crowds, did have intermittent fever since yesterday, PCP advised to take Tylenol, does not currently have a fever. MD Complaint: shortness of breath -: Gradual Pain Scale: 5 Treatments Prior to Arrival: none - Related Data Home Medications Medication Instructions Recorded Confirmed Last Taken atenoloL [Tenormin] 25 mg PO DAILY 12/28/18 10/09/19 10/06/19 busPIRone [Buspar] 15 mg PO TID 12/28/18 10/09/19 10/06/19 Gabapentin [Gralise] 600 mg PO QDAY 10/09/19 10/09/19 10/06/19 Venlafaxine [Effexor 25mg tab] 25 mg PO QDAY 10/09/19 10/09/19 Unknown diphenhydrAMINE [Benadryl CAP] 25 mg PO QHS PRN 10/09/19 10/09/19 Unknown Previous Rx's Medication Instructions Recorded Last Taken Type ALBUTEROL Inhaler(NF) [VENTOLIN 1 puff IH Q4HR PRN #1 inha 07/10/18 Unknown Rx Inhaler(NF)] Aspirin [Aspirin BABY CHEW TAB] 81 mg PO QDAY #30 tab.chew 12/30/18 10/06/19 Rx Hydroxychloroquine [Plaquenil] 200 mg PO QDAY 30 Days tablet 12/30/18 10/06/19 Rx ALPRAZolam [Xanax TAB] 0.5 mg PO Q12HR #10 tablet 05/04/19 Unknown Rx Budesonide/Formoterol Fumarate 10.2 gm IH BID 30 Days hfa.aer.ad 05/04/19 Unknown Rx [Symbicort 160-4.5 Mcg Inhaler] HYDROcodone/HOMATROP 5-1.5 10 ml PO Q6H PRN #200 ml 05/04/19 Unknown Rx [HYDROcodone-Homatropin 5-1.5 mg per 5 ML] Montelukast [Singulair] 10 mg PO QHS 30 Days tablet 05/04/19 10/06/19 Rx Pantoprazole [Protonix TAB] 40 mg PO DAILY #30 tablet 05/04/19 10/06/19 Rx Prednisone [predniSONE 10 mg 10 mg PO .TAPER #1 tab.ds.pk 05/04/19 Unknown Rx (6-Day Pack, 21 Tabs)] guaiFENesin ER [Mucinex ER] 600 mg PO BID #7 tablet 05/04/19 Unknown Rx oxyCODONE /ACETAMINOPHEN [Percocet 1 tab PO Q4H PRN #14 tablet 05/04/19 Unknown Rx 5/325 mg] Naproxen 500 mg PO Q12H PRN #20 tablet 02/26/20 Unknown Rx Allergies Allergy/AdvReac Type Severity Reaction Status Date / Time bee venom protein (honey bee) Allergy Shortness Verified 07/10/18 16:39 of Breath iv contrast Allergy Hives Uncoded 07/10/18 16:36 ED Review of Systems ROS: Stated complaint: SOB/HEADACHE Other details as noted in HPI Constitutional: fever Respiratory: cough, shortness of breath, wheezing Cardiovascular: chest pain ED Past Medical Hx - Past Medical History Previous Medical History?: Yes Hx Hypertension: Yes Hx Congestive Heart Failure: Yes Hx Diabetes: No Hx Asthma: Yes Hx COPD: No Additional medical history: Lupus, left ventricular hypertrophy - Surgical History Additional Surgical History: tubal ligation. endometrial ablasion - Social History Smoking Status: Current Every Day Smoker Substance Use Type: Marijuana - Medications Home Medications: Home Medications Medication Instructions Recorded Confirmed Last Taken Type ALBUTEROL Inhaler(NF) [VENTOLIN 1 puff IH Q4HR PRN #1 inha 07/10/18 10/09/19 Unknown Rx Inhaler(NF)] atenoloL [Tenormin] 25 mg PO DAILY 12/28/18 10/09/19 10/06/19 History busPIRone [Buspar] 15 mg PO TID 12/28/18 10/09/19 10/06/19 History Aspirin [Aspirin BABY CHEW TAB] 81 mg PO QDAY #30 tab.chew 12/30/18 10/09/19 10/06/19 Rx Hydroxychloroquine [Plaquenil] 200 mg PO QDAY 30 Days tablet 12/30/18 10/09/19 10/06/19 Rx ALPRAZolam [Xanax TAB] 0.5 mg PO Q12HR #10 tablet 05/04/19 10/09/19 Unknown Rx Budesonide/Formoterol Fumarate 10.2 gm IH BID 30 Days hfa.aer.ad 05/04/19 10/09/19 Unknown Rx [Symbicort 160-4.5 Mcg Inhaler] HYDROcodone/HOMATROP 5-1.5 10 ml PO Q6H PRN #200 ml 05/04/19 10/09/19 Unknown Rx [HYDROcodone-Homatropin 5-1.5 mg per 5 ML] Montelukast [Singulair] 10 mg PO QHS 30 Days tablet 05/04/19 10/09/19 10/06/19 Rx Pantoprazole [Protonix TAB] 40 mg PO DAILY #30 tablet 05/04/19 10/09/19 10/06/19 Rx Prednisone [predniSONE 10 mg 10 mg PO .TAPER #1 tab.ds.pk 05/04/19 10/09/19 Unknown Rx (6-Day Pack, 21 Tabs)] guaiFENesin ER [Mucinex ER] 600 mg PO BID #7 tablet 05/04/19 10/09/19 Unknown Rx oxyCODONE /ACETAMINOPHEN [Percocet 1 tab PO Q4H PRN #14 tablet 05/04/19 10/09/19 Unknown Rx 5/325 mg] Gabapentin [Gralise] 600 mg PO QDAY 10/09/19 10/09/19 10/06/19 History Venlafaxine [Effexor 25mg tab] 25 mg PO QDAY 10/09/19 10/09/19 Unknown History diphenhydrAMINE [Benadryl CAP] 25 mg PO QHS PRN 10/09/19 10/09/19 Unknown History Naproxen 500 mg PO Q12H PRN #20 tablet 02/26/20 Unknown Rx ED Physical Exam - General Limitations: No Limitations General appearance: alert, in no apparent distress - Head Head exam: Present: atraumatic, normocephalic - Eye Eye exam: Present: normal appearance - ENT ENT exam: Present: mucous membranes moist - Neck Neck exam: Present: normal inspection - Respiratory Respiratory exam: Present: respiratory distress, wheezes - Cardiovascular Cardiovascular Exam: Present: regular rate, normal rhythm. Absent: systolic murmur, diastolic murmur, rubs, gallop - GI/Abdominal GI/Abdominal exam: Present: soft, normal bowel sounds - Extremities Exam Extremities exam: Present: normal inspection - Back Exam Back exam: Present: normal inspection - Neurological Exam Neurological exam: Present: alert, oriented X3 - Psychiatric Psychiatric exam: Present: normal affect, normal mood - Skin Skin exam: Present: warm, dry, intact, normal color. Absent: rash ED Course Vital Signs 06/27/20 16:25 Pulse Rate [ 112 H Anterior Bilateral] Respiratory 20 Rate [Anterior Bilateral] - Reevaluation(s) Reevaluation #1: 06/27/20 20:20 Still wheezing, requiring oxygen, despite multiple treatments with albuterol and ipratropium. Will admit for further treatment. Covid rule out. ED Medical Decision Making - Lab Data Result diagrams: 06/27/20 16:22 06/27/20 16:23 - EKG Data -: EKG Interpreted by Me EKG shows normal: sinus rhythm Rate: tachycardia - EKG Data When compared to previous EKG there are: changes noted Interpretation: other (Tachycardia rate 128) Critical care attestation.: If time is entered above; I have spent that time in minutes in the direct care of this critically ill patient, excluding procedure time. ED Disposition Clinical Impression: Person under investigation for COVID-19 Acute asthma exacerbation Qualifiers: Asthma severity: severe Asthma persistence: persistent Qualified Code(s): J45. 51 - Severe persistent asthma with (acute) exacerbation Disposition: DC-09 OP ADMIT IP TO THIS HOSP Is pt being admited?: Yes Does the pt Need Aspirin: No Condition: Stable
[2020-06-27 17:25] LABS: Alanine Aminotransferase 12 units/L (7-56); BUN/Creatinine Ratio 13; Blood Urea Nitrogen 10 mg/dL (7-17); Hemolysis Index 11
[2020-06-27] MEDS ORDERED: MORPHINE 4 MG/1 ML INJ IV ONE (17:57)
[2020-06-27] MEDS ORDERED: ONDANSETRON 4 MG/2 ML INJ IV ONE (17:58)
[2020-06-27] MEDS ORDERED: diphenhydrAMINE 50 MG/ML VIAL IV ONE (17:58)
[2020-06-27] MEDS ORDERED: SODIUM CHLORIDE 0.9% 1000 ML 1,000 ML IV ONE (18:58)
[2020-06-27] MEDS ORDERED: BENZONATATE 100 MG CAP PO ONE (19:10)
[2020-06-27] MEDS ORDERED: guaiFENesin/CODEINE 100-10MG ORAL LIQD 5 ML PO ONE (20:00)
[2020-06-27] MEDS ORDERED: HYDROmorphone 1 MG/1 ML INJ IV ONE ×2 (20:03→21:55)
[2020-06-27 20:35] LABS: ABG Base Excess -4.2 mmol/L (-2.0-3.0); ABG HCO3 20.5 mmol/L (20.0-26.0); ABG Methemoglobin 0.7 % (0.0-1.5); ABG PCO2 36.4 mm Hg; ABG PH 7.369 pH Units (7.350-7.450); ABG PO2 163.8 mm Hg (80.0-90.0)
--- NOTE | 2020-06-27 21:18 | Nuclear Medicine Report ---
NUCLEAR MEDICINE PERFUSION LUNG SCAN INDICATION / CLINICAL INFORMATION: sob. TECHNIQUE: 4.5 mCi of Tc-99m MAA were given by IV. COMPARISON: Chest radiograph dated 06/27/20. FINDINGS: PERFUSION: No significant perfusion defects. ADDITIONAL FINDINGS: None. IMPRESSION: 1. Low probability for pulmonary embolism. Signer Name: Yaneth Flores MD Signed: 06/27/2020 9:14 PM Workstation Name: [id number]
[2020-06-27] MEDS ORDERED: POTASSIUM CHLORIDE 10 MEQ 10 MEQ/100 ML BAG IV SCH (22:00)
[2020-06-27] MEDS ORDERED: POTASSIUM CHLORIDE 10 MEQ 10 MEQ/100 ML BAG IV ONE (22:25)
[2020-06-27] MEDS ORDERED: ACETAMINOPHEN 325 MG TAB PO PRN (22:35)
[2020-06-27] MEDS ORDERED: MAGNESIUM HYDROXIDE (MOM) ORAL LIQD UDC PO PRN (22:35)
[2020-06-27] MEDS ORDERED: SODIUM CHLORIDE 0.9% 1000 ML 1,000 ML IV SCH (22:45)
--- NOTE | 2020-06-27 22:50 | History and Physical Report ---
History of Present Illness Date of examination: 06/27/20 Date of admission: 06/27/20 21:49 Chief complaint: Shortness of Breath History of present illness: 50-year-old female with known history of lupus, LVH, asthma, CHF and hypertension brought into the emergency room today complaining of shortness of breath and cough which has been ongoing for the past few days but got worse today. Patient has known history of asthma and was intubated sometime in September after having an exacerbation. Patient indicates that she was in [place] and was in the [facility] and in a crowd earlier this month celebrating her birthday. She indicates she has been having intermittent fever, cough productive of some yellowish sputum over the past few days. She was encouraged to take Tylenol for the fever by her primary care physician and indicates that fever seems to have subsided. Upon arrival in the emergency room she had several rounds of nebulizing treatments and complains of persistent cough, generalized body aches and pain and malaise. Work-up in the emergency room including chest x-ray did not reveal any significant abnormality. Patient is being admitted for asthma exacerbation/bronchitis and will rule out COVID-19. Past History Past Medical History: heart failure, hypertension, other (Asthma) Past Surgical History: Other (Tubal Ligation,Endometrial ablation) Social history: smoking (Current daily smoker), other (Marijuana use) Family history: no significant family history Medications and Allergies Allergies Allergy/AdvReac Type Severity Reaction Status Date / Time bee venom protein (honey bee) Allergy Shortness Verified 07/10/18 16:39 of Breath iv contrast Allergy Hives Uncoded 07/10/18 16:36 Home Medications Medication Instructions Recorded Confirmed Last Taken Type ALBUTEROL Inhaler(NF) [VENTOLIN 1 puff IH Q4HR PRN #1 inha 07/10/18 06/28/20 06/27/20 Rx Inhaler(NF)] atenoloL [Tenormin] 50 mg PO DAILY 12/28/18 06/28/20 06/27/20 History Aspirin [Aspirin BABY CHEW TAB] 81 mg PO QDAY #30 tab.chew 12/30/18 06/28/20 06/27/20 Rx Hydroxychloroquine [Plaquenil] 200 mg PO QDAY 30 Days tablet 12/30/18 06/28/20 06/27/20 Rx Budesonide/Formoterol Fumarate 10.2 gm IH BID 30 Days hfa.aer.ad 05/04/19 06/28/20 Unknown Rx [Symbicort 160-4.5 Mcg Inhaler] Montelukast [Singulair] 10 mg PO QHS 30 Days tablet 05/04/19 06/28/20 10/06/19 Rx Pantoprazole [Protonix TAB] 40 mg PO DAILY #30 tablet 05/04/19 06/28/20 10/06/19 Rx Gabapentin [Gralise] 600 mg PO QDAY 10/09/19 06/28/20 06/27/20 History Venlafaxine [Effexor 25mg tab] 37.5 mg PO QDAY 10/09/19 06/28/20 06/27/20 History Naproxen 500 mg PO Q12H PRN #20 tablet 02/26/20 06/28/20 Unknown Rx ALPRAZolam [Xanax TAB] 2 mg PO Q12HR 06/28/20 06/28/20 06/27/20 History Active Meds: Active Medications Acetaminophen (Tylenol) 650 mg PO Q4H PRN PRN Reason: Pain MILD(1-3)/Fever >100.5/WILLETT Albuterol/Ipratropium (Duoneb *Not For Prn Use*) 1 ampul IH Q6HRT [facility] Enoxaparin Sodium (Enoxaparin) 40 mg SUB-Q QDAY@2200 [facility]; Protocol Potassium Chloride (Kcl 10meq/100ml) 10 meq in 100 mls @ 100 mls/hr IV Q1H [facility] Stop: 06/27/20 23:59 Sodium Chloride (Nacl 0.9% 1000 Ml) 1,000 mls @ 75 mls/hr IV DIRECT [facility] Magnesium Hydroxide (Milk Of Magnesia) 30 ml PO Q4H PRN PRN Reason: Constipation Methylprednisolone Sodium Succinate (Solu-Medrol) 40 mg IV Q8HR [facility] Morphine Sulfate (Morphine) 2 mg IV Q4H PRN PRN Reason: Pain, Moderate (4-6) Ondansetron HCl (Zofran) 4 mg IV Q8H PRN PRN Reason: Nausea And Vomiting Sodium Chloride (Sodium Chloride Flush Syringe 10 Ml) 10 ml IV BID [facility] Sodium Chloride (Sodium Chloride Flush Syringe 10 Ml) 10 ml IV PRN PRN PRN Reason: LINE FLUSH Review of Systems Constitutional: fever, chills, fatigue, malaise Ears, nose, mouth and throat: no nasal congestion, no sore throat Cardiovascular: no chest pain, no palpitations Respiratory: cough, cough with sputum, shortness of breath, wheezing Gastrointestinal: no abdominal pain, no nausea, no vomiting Genitourinary Female: no flank pain, no dysuria, no hematuria Musculoskeletal: no neck pain, no low back pain Integumentary: no rash, no pruritis Neurological: no headaches, no confusion Psychiatric: no anxiety, no depression Exam - Constitutional Vitals: Temp Pulse Resp BP Pulse Ox 112 H 20 06/27/20 16:25 06/27/20 16:25 General appearance: Present: no acute distress, well-nourished - EENT Eyes: Present: PERRL, EOM intact. Absent: scleral icterus ENT: hearing intact, clear oral mucosa, dentition normal - Neck Neck: Present: supple, normal ROM - Respiratory Respiratory effort: normal Respiratory: bilateral: wheezing - Cardiovascular Rhythm: regular Heart Sounds: Present: S1 & S2. Absent: gallop, systolic murmur, diastolic murmur, rub - Extremities Extremities: no ischemia, pulses intact, pulses symmetrical, No edema, Full ROM Peripheral Pulses: within normal limits - Abdominal General gastrointestinal: Present: soft, non-tender, non-distended, normal bowel sounds. Absent: mass - Integumentary Integumentary: Present: clear, warm, dry. Absent: rash - Musculoskeletal Musculoskeletal: strength equal bilaterally - Psychiatric Psychiatric: appropriate mood/affect, intact judgment & insight, memory intact, cooperative - Neurologic Neurologic: CNII-XII intact, no focal deficits, moves all extremities HEART Score - HEART Score Troponin: Troponin T < 0.010 ng/mL (0.00-0.029) 06/27/20 16:22 Results - Labs CBC & Chem 7: 06/28/20 05:29 06/27/20 16:23 Labs: Abnormal lab results 06/27/20 06/27/20 06/27/20 Range/Units 16:22 16:23 20:25 RDW 13.1 L (13.2-15.2) % ABG pO2 163.8 H (80.0-90.0) mm Hg ABG Base Excess -4.2 L (-2.0-3.0) mmol/L Potassium 3.0 L (3.6-5.0) mmol/L Carbon Dioxide 21 L (22-30) mmol/L Glucose 102 H (65-100) mg/dL Assessment and Plan - Patient Problems (1) Acute asthma exacerbation Current Visit: Yes Status: Acute Qualifiers: Asthma severity: severe Asthma persistence: persistent Qualified Code(s): J45.51 - Severe persistent asthma with (acute) exacerbation Plan to address problem: Patient placed on nebulizing treatment and IV steroid. We will keep oxygen saturation greater or equal to 94%. We will place consult to pulmonology for evaluation. (2) Person under investigation for COVID-19 Current Visit: Yes Status: Acute Plan to address problem: Patient placed on isolation precautions. We await COVID-19 testing. (3) SLE (systemic lupus erythematosus related syndrome) Current Visit: No Status: Chronic Plan to address problem: We will continue patient on her routine home medications. (4) DVT prophylaxis Current Visit: No Status: Acute Plan to address problem: Patient placed on subcutaneous Lovenox. (5) Full code status Current Visit: Yes Status: Acute
[2020-06-27] MEDS ORDERED: POTASSIUM CHLORIDE ER 20 MEQ TAB PO ONE (23:29)
[2020-06-27] MEDS ORDERED: SODIUM CHLORIDE 0.9% 1000 ML 1,000 ML ONE (23:56)
[2020-06-27] MEDS ORDERED: MORPHINE 2 MG/1 ML INJ ONE (23:57)
[2020-06-28] MEDS: MORPHINE 2 MG/1 ML INJ IV PRN ×5 (00:32→22:22)
[2020-06-28] MEDS: POTASSIUM CHLORIDE ER 20 MEQ TAB PO ONE (00:37)
[2020-06-28] MEDS ORDERED: HYDROmorphone 1 MG/1 ML INJ IV ONE (01:20)
[2020-06-28] MEDS ORDERED: HYDROmorphone 1 MG/1 ML INJ ONE (01:22)
[2020-06-28] MEDS: IPRATROPIUM/ALBUTEROL SULFATE 3 ML AMPUL.NEB IH SCH ×4 (02:57→21:40)
[2020-06-28] MEDS: methylPREDNISolone Sod Succinate 40 MG/1 ML INJ IV SCH ×3 (05:36→22:21)
[2020-06-28 06:15] LABS: Hematocrit 39.1 % (30.3-42.9); Mean Corpuscular HGB Conc 33 % (30-34); Mean Corpuscular Volume 91 fl (79-97); Platelet Count 283 K/mm3 (140-440); Red Cell Distribution Width 13.2 % (13.2-15.2)
[2020-06-28 06:24] LABS: INR 0.98 (0.87-1.13)
[2020-06-28 06:34] LABS: BUN/Creatinine Ratio 10; Blood Urea Nitrogen 10 mg/dL (7-17); Calcium 8.8 mg/dL (8.4-10.2); Hemolysis Index 1
[2020-06-28 06:51] LABS: Basophils % (Manual) 0 % (0.0-1.8); Eosinophils % (Manual) 0 % (0.0-4.3); Platelet Estimate Cons; Total Cells Counted 100
[2020-06-28] MEDS: ONDANSETRON 4 MG/2 ML INJ IV PRN (08:43)
--- NOTE | 2020-06-28 10:52 | Consultation ---
History of Present Illness - Reason for Consult Consult date: 06/28/20 Asthma r/o COVID Requesting physician: ESPERANZA MCDOWELL - History of Present Illness 50 years old female with history of lupus, severe asthma requiring previous intubation, CHF, hypertension, admitted on 06/27/2020 secondary to a week history of intermittent fever, cough, generalized malaise, progressive shortness of breath. Patient went to a [facility] in [place] for weeks ago May 2020 to celebrate her birthday. Patient also reporting chest congestion and pain as well as nausea. On arrival, temperature 98, HR 112, RR 16, O2 sat 90%, BP 153/129. Initial WBC 8.4. Creatinine 0.8. Normal LFTs. Chest x-ray with no consolidation. VQ scan low probability for PE. O2 sats dropped to 92%, patient is on 3 L nasal cannula. Review of Systems: reviewed ED and H&P notes. Limited due to PPE conservation strategy Past History Past Medical History: heart failure, hypertension, other (Asthma) Past Surgical History: Other (Tubal Ligation,Endometrial ablation) Social history: smoking (Current daily smoker), other (Marijuana use) Family history: no significant family history Medications and Allergies Allergies Allergy/AdvReac Type Severity Reaction Status Date / Time bee venom protein (honey bee) Allergy Shortness Verified 07/10/18 16:39 of Breath iv contrast Allergy Hives Uncoded 07/10/18 16:36 Home Medications Medication Instructions Recorded Confirmed Last Taken Type ALBUTEROL Inhaler(NF) [VENTOLIN 1 puff IH Q4HR PRN #1 inha 07/10/18 06/28/20 06/27/20 Rx Inhaler(NF)] atenoloL [Tenormin] 50 mg PO DAILY 12/28/18 06/28/20 06/27/20 History Aspirin [Aspirin BABY CHEW TAB] 81 mg PO QDAY #30 tab.chew 12/30/18 06/28/20 06/27/20 Rx Hydroxychloroquine [Plaquenil] 200 mg PO QDAY 30 Days tablet 12/30/18 06/28/20 06/27/20 Rx Budesonide/Formoterol Fumarate 10.2 gm IH BID 30 Days hfa.aer.ad 05/04/19 06/28/20 Unknown Rx [Symbicort 160-4.5 Mcg Inhaler] Montelukast [Singulair] 10 mg PO QHS 30 Days tablet 05/04/19 06/28/20 10/06/19 Rx Pantoprazole [Protonix TAB] 40 mg PO DAILY #30 tablet 05/04/19 06/28/20 10/06/19 Rx Gabapentin [Gralise] 600 mg PO QDAY 10/09/19 06/28/20 06/27/20 History Venlafaxine [Effexor 25mg tab] 37.5 mg PO QDAY 10/09/19 06/28/20 06/27/20 History Naproxen 500 mg PO Q12H PRN #20 tablet 02/26/20 06/28/20 Unknown Rx ALPRAZolam [Xanax TAB] 2 mg PO Q12HR 06/28/20 06/28/20 06/27/20 History Active Meds: Active Medications Acetaminophen (Tylenol) 650 mg PO Q4H PRN PRN Reason: Pain MILD(1-3)/Fever >100.5/WILLETT Last Admin: 06/28/20 05:34 Dose: 650 mg Documented by: Albuterol/Ipratropium (Duoneb *Not For Prn Use*) 1 ampul IH Q6HRT [facility] Last Admin: 06/28/20 08:22 Dose: 1 ampul Documented by: Enoxaparin Sodium (Enoxaparin) 40 mg SUB-Q QDAY@2200 [facility]; Protocol Sodium Chloride (Nacl 0.9% 1000 Ml) 1,000 mls @ 75 mls/hr IV DIRECT [facility] Magnesium Hydroxide (Milk Of Magnesia) 30 ml PO Q4H PRN PRN Reason: Constipation Methylprednisolone Sodium Succinate (Solu-Medrol) 40 mg IV Q8HR [facility] Last Admin: 06/28/20 05:36 Dose: 40 mg Documented by: Morphine Sulfate (Morphine) 2 mg IV Q4H PRN PRN Reason: Pain, Moderate (4-6) Last Admin: 06/28/20 08:43 Dose: 2 mg Documented by: Ondansetron HCl (Zofran) 4 mg IV Q8H PRN PRN Reason: Nausea And Vomiting Last Admin: 06/28/20 08:43 Dose: 4 mg Documented by: Sodium Chloride (Sodium Chloride Flush Syringe 10 Ml) 10 ml IV BID [facility] Last Admin: 06/28/20 09:03 Dose: 10 ml Documented by: Sodium Chloride (Sodium Chloride Flush Syringe 10 Ml) 10 ml IV PRN PRN PRN Reason: LINE FLUSH Physical Examination - Physical Exam Narrative exam: Physical Exam: reviewed ED and hospitalist notes, limited due to conservation of PPE and decrease risk of transmission. General appearance: limited due to conservation of PPE Eyes: limited due to conservation of PPE HENT: Atraumatic; limited due to conservation of PPE Lungs: limited due to conservation of PPE CV: limited due to conservation of PPE Abdomen: limited due to conservation of PPE Extremities: limited due to conservation of PPE Skin: limited due to conservation of PPE Psych: limited due to conservation of PPE Neuro: limited due to conservation of PPE - - Constitutional Vitals: Vital Signs Temp Pulse Resp BP Pulse Ox 98.4 F 98 H 20 120/61 96 06/28/20 04:45 06/28/20 08:22 06/28/20 08:22 06/28/20 04:45 06/28/20 08:22 Temperature -Last 24 Hours Temperature 98.4 F Temperature 98.0 F Results - Labs CBC & Chem 7: 06/28/20 05:29 06/28/20 05:24 Labs: Abnormal lab results 06/27/20 06/27/20 06/27/20 Range/Units 16:22 16:23 20:25 WBC (4.5-11.0) K/mm3 RDW 13.1 L (13.2-15.2) % Seg Neuts % (Manual) (40.0-70.0) % Lymphocytes % (Manual) (13.4-35.0) % Seg Neutrophils # Man (1.8-7.7) K/mm3 Lymphocytes # (Manual) (1.2-5.4) K/mm3 ABG pO2 163.8 H (80.0-90.0) mm Hg ABG Base Excess -4.2 L (-2.0-3.0) mmol/L Potassium 3.0 L (3.6-5.0) mmol/L Carbon Dioxide 21 L (22-30) mmol/L Glucose 102 H (65-100) mg/dL 06/28/20 06/28/20 Range/Units 05:24 05:29 WBC 13.2 H (4.5-11.0) K/mm3 RDW (13.2-15.2) % Seg Neuts % (Manual) 92.0 H (40.0-70.0) % Lymphocytes % (Manual) 6.0 L (13.4-35.0) % Seg Neutrophils # Man 12.1 H (1.8-7.7) K/mm3 Lymphocytes # (Manual) 0.8 L (1.2-5.4) K/mm3 ABG pO2 (80.0-90.0) mm Hg ABG Base Excess (-2.0-3.0) mmol/L Potassium (3.6-5.0) mmol/L Carbon Dioxide 16 L (22-30) mmol/L Glucose 192 H (65-100) mg/dL Assessment and Plan Cultures: SARS CoV2 PCR pending Assessment: 50 years old female with history of lupus, severe asthma requiring previous intubation, CHF, hypertension, admitted on 06/27/2020 secondary to a week history of intermittent fever, cough, generalized malaise, progressive shortness of breath: #Asthma exacerbation +/- ?COVID-19 infection: Chest x-ray did not show consolidations. SARS-CoV-2 PCR is pending. Patient is at high risk for severe Covid infection. VQ scan with low probability for PE. Symptoms may be going on for longer than a week. #Acute hypoxia: Currently on 3 L nasal cannula. Recommendations: -Patient started on Solu-Medrol 40 mg IV every 8 hours -F/u SARS COV2 PCR if positive Start Remdesivir 200 mg IV q day x 1 day followed by 100 mg IV q day x 4 days (CrCl>30. Order placed) -Obtain SARS CoV-2 IgG if negative and clinically needed she may benefit COVID convalescent plasma -Monitor inflammatory markers - ferritin, Ddimer, CRP, LDH -Continue anticoagulation per System Protocol All laboratory, cultures and imaging were reviewed. Dr. Zeng will be rounding this weekend Will follow Eneida Brooks MD Infectious Diseases [employer] [facility] M [phone] O [phone]
[2020-06-28] MEDS ORDERED: ALBUTEROL 8.5 GM MDI INHALATION IH PRN (15:14)
--- NOTE | 2020-06-28 15:17 | Progress Note ---
Assessment and Plan Assessment and plan: 50-year-old female with known history of lupus, LVH, asthma, CHF and hypertension brought into the emergency room today complaining of shortness of breath and cough which has been ongoing for the past few days but got worse today. Patient has known history of asthma and was intubated sometime in September after having an exacerbation. Patient indicates that she was in [place] in [place] crowd earlier this month celebrating her birthday. She indicates she has been having intermittent fever, cough productive of some yellowish sputum over the past few days. She was encouraged to take Tylenol for the fever by her primary care physician and indicates that fever seems to have subsided. Upon arrival in the emergency room she had several rounds of nebulizing treatments and complains of persistent cough, generalized body aches and pain and malaise. Work-up in the emergency room including chest x-ray did not reveal any significant abnormality. Prior hx of substance abuse Patient is being admitted for asthma exacerbation/bronchitis and will rule out COVID-19. Acute asthma exacerbation Acute Hypoxic Respiratory failure Person under investigation for COVID-19 SLE (systemic lupus erythematosus related syndrome) Anxiety and PTSD Acute metabolic Acidosis CHF with diastolic Dysfunction GERD Plan Continue supportive care Await COVID testing result Give sodium Bicarb Continue oxygen and wean as tolerated Continue solumedrol Resume Home medications DVT/GI PROPH History Interval history: Patient seen and examined, resting comfortable although still reports generalized body pain and febrile illness. Hospitalist Physical - Physical exam Narrative exam: VITAL SIGNS: Reviewed. GENERAL: The patient appears normally developed, warm to the touch, vital signs as documented. HEAD: No signs of head trauma. EYES: Pupils are equal. Extraocular motions intact. EARS: Hearing grossly intact. MOUTH: Oropharynx is normal. NECK: No adenopathy, no JVD. CHEST: Chest with Diminished breath sounds bilaterally. No wheezes, rales, or rhonchi. CARDIAC: Regular rate and rhythm. S1 and S2, without murmurs, gallops, or rubs. VASCULAR: No Edema. Peripheral pulses normal and equal in all extremities. ABDOMEN: Soft, non tender and non distended. No rebound or guarding, and no masses palpated. Bowel Sounds normal. MUSCULOSKELETAL: Good range of motion of all major joints. Extremities without clubbing, cyanosis or edema. NEUROLOGIC EXAM: Alert and oriented x 3 No focal sensory or strength deficit s. Speech normal. Follows commands. PSYCHIATRIC: Mood normal. SKIN: detail exam as documented in skin assessment - Constitutional Vitals: Temp Pulse Resp BP Pulse Ox 98.4 F 98 H 20 120/61 96 06/28/20 04:45 06/28/20 08:22 06/28/20 08:22 06/28/20 04:45 06/28/20 08:22 General appearance: Present: no acute distress, well-nourished HEART Score - HEART Score Troponin: Troponin T < 0.010 ng/mL (0.00-0.029) 06/27/20 16:22 Results - Labs CBC & Chem 7: 06/28/20 05:29 06/28/20 05:24 Labs: Laboratory Last Values WBC 13.2 K/mm3 (4.5-11.0) H 06/28/20 05:29 RBC 4.30 M/mm3 (3.65-5.03) 06/28/20 05:29 Hgb 13.0 gm/dl (10.1-14.3) 06/28/20 05:29 Hct 39.1 % (30.3-42.9) 06/28/20 05:29 MCV 91 fl (79-97) 06/28/20 05:29 MCH 30 pg (28-32) 06/28/20 05:29 MCHC 33 % (30-34) 06/28/20 05:29 RDW 13.2 % (13.2-15.2) 06/28/20 05:29 Plt Count 283 K/mm3 (140-440) 06/28/20 05:29 Add Manual Diff Complete 06/28/20 05:29 Total Counted 100 06/28/20 05:29 Seg Neutrophils % Process Planner 06/28/20 05:29 Seg Neuts % (Manual) 92.0 % (40.0-70.0) H 06/28/20 05:29 Band Neutrophils % 0 % 06/28/20 05:29 Lymphocytes % (Manual) 6.0 % (13.4-35.0) L 06/28/20 05:29 Reactive Lymphs % (Man) 0 % 06/28/20 05:29 Monocytes % (Manual) 2.0 % (0.0-7.3) 06/28/20 05:29 Eosinophils % (Manual) 0 % (0.0-4.3) 06/28/20 05:29 Basophils % (Manual) 0 % (0.0-1.8) 06/28/20 05:29 Metamyelocytes % 0 % 06/28/20 05:29 Myelocytes % 0 % 06/28/20 05:29 Promyelocytes % 0 % 06/28/20 05:29 Blast Cells % 0 % 06/28/20 05:29 Nucleated RBC % Not Reportable 06/28/20 05:29 Seg Neutrophils # Man 12.1 K/mm3 (1.8-7.7) H 06/28/20 05:29 Band Neutrophils # 0.0 K/mm3 06/28/20 05:29 Lymphocytes # (Manual) 0.8 K/mm3 (1.2-5.4) L 06/28/20 05:29 Abs React Lymphs (Man) 0.0 K/mm3 06/28/20 05:29 Monocytes # (Manual) 0.3 K/mm3 (0.0-0.8) 06/28/20 05:29 Eosinophils # (Manual) 0.0 K/mm3 (0.0-0.4) 06/28/20 05:29 Basophils # (Manual) 0.0 K/mm3 (0.0-0.1) 06/28/20 05:29 Metamyelocytes # 0.0 K/mm3 06/28/20 05:29 Myelocytes # 0.0 K/mm3 06/28/20 05:29 Promyelocytes # 0.0 K/mm3 06/28/20 05:29 Blast Cells # 0.0 K/mm3 06/28/20 05:29 WBC Morphology Not Reportable 06/28/20 05:29 Hypersegmented Neuts Not Reportable 06/28/20 05:29 Hyposegmented Neuts Not Reportable 06/28/20 05:29 Hypogranular Neuts Not Reportable 06/28/20 05:29 Smudge Cells Not Reportable 06/28/20 05:29 Toxic Granulation Not Reportable 06/28/20 05:29 Toxic Vacuolation Not Reportable 06/28/20 05:29 Dohle Bodies Not Reportable 06/28/20 05:29 Pelger-Huet Anomaly Not Reportable 06/28/20 05:29 Savanna Rods Not Reportable 06/28/20 05:29 Platelet Estimate Cons 06/28/20 05:29 Clumped Platelets Not Reportable 06/28/20 05:29 Plt Clumps, EDTA Not Reportable 06/28/20 05:29 Large Platelets Not Reportable 06/28/20 05:29 Giant Platelets Not Reportable 06/28/20 05:29 Platelet Satelliting Not Reportable 06/28/20 05:29 Plt Morphology Comment Not Reportable 06/28/20 05:29 RBC Morphology Not Reportable 06/28/20 05:29 Dimorphic RBCs Not Reportable 06/28/20 05:29 Polychromasia Not Reportable 06/28/20 05:29 Hypochromasia Not Reportable 06/28/20 05:29 Poikilocytosis Not Reportable 06/28/20 05:29 Anisocytosis Not Reportable 06/28/20 05:29 Microcytosis Not Reportable 06/28/20 05:29 Macrocytosis Not Reportable 06/28/20 05:29 Spherocytes Not Reportable 06/28/20 05:29 Pappenheimer Bodies Not Reportable 06/28/20 05:29 Sickle Cells Not Reportable 06/28/20 05:29 Target Cells Not Reportable 06/28/20 05:29 Tear Drop Cells Not Reportable 06/28/20 05:29 Ovalocytes Not Reportable 06/28/20 05:29 Helmet Cells Not Reportable 06/28/20 05:29 [place] Bodies Not Reportable 06/28/20 05:29 [place] Rings Not Reportable 06/28/20 05:29 [place] Cells Not Reportable 06/28/20 05:29 Bite Cells Not Reportable 06/28/20 05:29 Crenated Cell Not Reportable 06/28/20 05:29 Elliptocytes Not Reportable 06/28/20 05:29 Acanthocytes (Spur) Not Reportable 06/28/20 05:29 Rouleaux Not Reportable 06/28/20 05:29 Hemoglobin C Crystals Not Reportable 06/28/20 05:29 Schistocytes Not Reportable 06/28/20 05:29 Malaria parasites Not Reportable 06/28/20 05:29 Junaid Bodies Not Reportable 06/28/20 05:29 Hem Pathologist Commnt No 06/28/20 05:29 PT 13.2 Sec. (12.2-14.9) 06/28/20 05:24 INR 0.98 (0.87-1.13) 06/28/20 05:24 ABG pH 7.369 pH Units (7.350-7.450) 06/27/20 20:25 ABG pCO2 36.4 mm Hg 06/27/20 20:25 ABG pO2 163.8 mm Hg (80.0-90.0) H 06/27/20 20:25 ABG HCO3 20.5 mmol/L (20.0-26.0) 06/27/20 20:25 ABG O2 Saturation 99.0 % (95.0-99.0) 06/27/20 20:25 ABG O2 Content 18.4 (0.0-44) 06/27/20 20:25 ABG Base Excess -4.2 mmol/L (-2.0-3.0) L 06/27/20 20:25 ABG Hemoglobin 13.3 gm/dl (12.0-16.0) 06/27/20 20:25 ABG Carboxyhemoglobin 1.9 % (0.0-5.0) 06/27/20 20:25 ABG Methemoglobin 0.7 % (0.0-1.5) 06/27/20 20:25 Oxyhemoglobin 96.5 % (95.0-99.0) 06/27/20 20:25 FiO2 50 % 06/27/20 20:25 Sodium 140 mmol/L (137-145) 06/28/20 05:24 Potassium 3.7 mmol/L (3.6-5.0) D 06/28/20 05:24 Chloride 102.0 mmol/L (98-107) 06/28/20 05:24 Carbon Dioxide 16 mmol/L (22-30) L 06/28/20 05:24 Anion Gap 26 mmol/L 06/28/20 05:24 BUN 10 mg/dL (7-17) 06/28/20 05:24 Creatinine 1.0 mg/dL (0.6-1.2) 06/28/20 05:24 Estimated GFR > 60 ml/min 06/28/20 05:24 BUN/Creatinine Ratio 10 % 06/28/20 05:24 Glucose 192 mg/dL (65-100) H 06/28/20 05:24 Calcium 8.8 mg/dL (8.4-10.2) 06/28/20 05:24 Total Bilirubin 0.20 mg/dL (0.1-1.2) 06/27/20 16:23 AST 16 units/L (5-40) 06/27/20 16:23 ALT 12 units/L (7-56) 06/27/20 16:23 Alkaline Phosphatase 68 units/L (35-129) 06/27/20 16:23 Troponin T < 0.010 ng/mL (0.00-0.029) 06/27/20 16:22 Total Protein 6.6 g/dL (6.3-8.2) 06/27/20 16:23 Albumin 4.0 g/dL (3.9-5) 06/27/20 16:23 Albumin/Globulin Ratio 1.5 % 06/27/20 16:23 Coronavirus (PCR) Negative (Negative) 06/28/20 Unknown Tejada/IV: IV Catheter Type [Left Wrist] INT / Saline Lock Active Medications - Current Medications Current Medications: Generic Name Dose Route Start Last Admin Trade Name Freq PRN Reason Stop Dose Admin Acetaminophen 650 mg 06/27/20 22:35 06/28/20 05:34 Tylenol PO 650 mg Q4H PRN Administration Pain MILD(1-3)/Fever >100.5/WILLETT Albuterol 1 puff 06/28/20 15:14 Proair IH Q4HR PRN Wheezing Albuterol/Ipratropium 1 ampul 06/28/20 02:00 06/28/20 08:22 Duoneb *Not For Prn Use* IH 1 ampul Q6HRT [facility] Administration Alprazolam 2 mg 06/28/20 22:00 Xanax PO Q12HR [facility] Aspirin 81 mg 06/29/20 10:00 Baby Aspirin PO QDAY [facility] Atenolol 50 mg 06/29/20 10:00 Tenormin PO DAILY [facility] Enoxaparin Sodium 40 mg 06/28/20 22:00 Enoxaparin SUB-Q QDAY@2200 [facility] Protocol Hydroxychloroquine Sulfate 200 mg 06/28/20 16:00 Plaquenil PO QDAY [facility] Sodium Chloride 1,000 mls @ 75 mls/hr 06/27/20 22:45 Nacl 0.9% 1000 Ml IV DIRECT [facility] Magnesium Hydroxide 30 ml 06/27/20 22:35 Milk Of Magnesia PO Q4H PRN Constipation Methylprednisolone Sodium Succinate 40 mg 06/28/20 06:00 06/28/20 15:10 Solu-Medrol IV 40 mg Q8HR [facility] Administration Miscellaneous Medication 10.2 gm 06/28/20 22:00 Budesonide/Formoterol Fumarate [Symbicort 160-4.5 Mcg Inhaler] IH BID [facility] Miscellaneous Medication 600 mg 06/29/20 10:00 Gabapentin [Gralise] PO QDAY [facility] Montelukast Sodium 10 mg 06/28/20 22:00 Singulair PO QHS [facility] Morphine Sulfate 2 mg 06/27/20 22:35 06/28/20 15:10 Morphine IV 2 mg Q4H PRN Administration Pain, Moderate (4-6) Ondansetron HCl 4 mg 06/27/20 22:35 06/28/20 08:43 Zofran IV 4 mg Q8H PRN Administration Nausea And Vomiting Pantoprazole Sodium 40 mg 06/29/20 10:00 Protonix PO DAILY [facility] Sodium Chloride 10 ml 06/28/20 10:00 06/28/20 09:03 Sodium Chloride Flush Syringe 10 Ml IV 10 ml BID [facility] Administration Sodium Chloride 10 ml 06/27/20 22:35 Sodium Chloride Flush Syringe 10 Ml IV PRN PRN LINE FLUSH Venlafaxine HCl 37.5 mg 06/29/20 10:00 Effexor PO QDAY [facility]
[2020-06-28] MEDS ORDERED: ALBUTEROL 2.5 MG/3 ML NEBU IH PRN (15:39)
[2020-06-28] MEDS ORDERED: ARFORMOTEROL 15 MCG/2 ML NEBU IH SCH (20:00)
--- NOTE | 2020-06-28 20:12 | Consultation ---
History of Present Illness Consult date: 06/28/20 Requesting physician: ESPERANZA MCDOWELL Reason for consult: asthma (status), other ([facility]I COVID-19) History of present illness: PCCM CONSULT NOTE (Full dictation # ) Please see dictated notes for full details Past History Past Medical History: heart failure, hypertension, other (Asthma) Past Surgical History: Other (Tubal Ligation,Endometrial ablation) Social history: smoking (Current daily smoker), other (Marijuana use) Family history: no significant family history Medications and Allergies Allergies Allergy/AdvReac Type Severity Reaction Status Date / Time bee venom protein (honey bee) Allergy Shortness Verified 07/10/18 16:39 of Breath iv contrast Allergy Hives Uncoded 07/10/18 16:36 Home Medications Medication Instructions Recorded Confirmed Last Taken Type ALBUTEROL Inhaler(NF) [VENTOLIN 1 puff IH Q4HR PRN #1 inha 07/10/18 06/28/20 06/27/20 Rx Inhaler(NF)] atenoloL [Tenormin] 50 mg PO DAILY 12/28/18 06/28/20 06/27/20 History Aspirin [Aspirin BABY CHEW TAB] 81 mg PO QDAY #30 tab.chew 12/30/18 06/28/20 06/27/20 Rx Hydroxychloroquine [Plaquenil] 200 mg PO QDAY 30 Days tablet 12/30/18 06/28/20 06/27/20 Rx Budesonide/Formoterol Fumarate 10.2 gm IH BID 30 Days hfa.aer.ad 05/04/19 06/28/20 Unknown Rx [Symbicort 160-4.5 Mcg Inhaler] Montelukast [Singulair] 10 mg PO QHS 30 Days tablet 05/04/19 06/28/20 10/06/19 Rx Pantoprazole [Protonix TAB] 40 mg PO DAILY #30 tablet 05/04/19 06/28/20 10/06/19 Rx Gabapentin [Gralise] 600 mg PO QDAY 10/09/19 06/28/20 06/27/20 History Venlafaxine [Effexor 25mg tab] 37.5 mg PO QDAY 10/09/19 06/28/20 06/27/20 History Naproxen 500 mg PO Q12H PRN #20 tablet 02/26/20 06/28/20 Unknown Rx ALPRAZolam [Xanax TAB] 2 mg PO Q12HR 06/28/20 06/28/20 06/27/20 History Active Meds: Active Medications Acetaminophen (Tylenol) 650 mg PO Q4H PRN PRN Reason: Pain MILD(1-3)/Fever >100.5/WILLETT Last Admin: 06/28/20 05:34 Dose: 650 mg Documented by: Albuterol (Proventil) 2.5 mg IH Q4HRT PRN PRN Reason: Shortness Of Breath Albuterol/Ipratropium (Duoneb *Not For Prn Use*) 1 ampul IH Q6HRT [facility] Last Admin: 06/28/20 16:57 Dose: 1 ampul Documented by: Alprazolam (Xanax) 2 mg PO Q12HR [facility] Aspirin (Baby Aspirin) 81 mg PO QDAY [facility] Atenolol (Tenormin) 50 mg PO DAILY [facility] Budesonide (Pulmicort) 1 mg IH Q12HRT [facility] Enoxaparin Sodium (Enoxaparin) 40 mg SUB-Q QDAY@2200 ROMMEL; Protocol Hydroxychloroquine Sulfate (Plaquenil) 200 mg PO QDAY [facility] Sodium Chloride (Nacl 0.9% 1000 Ml) 1,000 mls @ 75 mls/hr IV DIRECT [facility] Magnesium Hydroxide (Milk Of Magnesia) 30 ml PO Q4H PRN PRN Reason: Constipation Methylprednisolone Sodium Succinate (Solu-Medrol) 40 mg IV Q8HR [facility] Last Admin: 06/28/20 15:10 Dose: 40 mg Documented by: Miscellaneous Medication (Gabapentin [Gralise]) 600 mg PO QDAY [facility] Montelukast Sodium (Singulair) 10 mg PO QHS [facility] Morphine Sulfate (Morphine) 2 mg IV Q4H PRN PRN Reason: Pain, Moderate (4-6) Last Admin: 06/28/20 15:10 Dose: 2 mg Documented by: Ondansetron HCl (Zofran) 4 mg IV Q8H PRN PRN Reason: Nausea And Vomiting Last Admin: 06/28/20 08:43 Dose: 4 mg Documented by: Pantoprazole Sodium (Protonix) 40 mg PO DAILY [facility] Sodium Bicarbonate (Sodium Bicarbonate) 650 mg PO BID [facility] Sodium Chloride (Sodium Chloride Flush Syringe 10 Ml) 10 ml IV BID [facility] Last Admin: 06/28/20 09:03 Dose: 10 ml Documented by: Sodium Chloride (Sodium Chloride Flush Syringe 10 Ml) 10 ml IV PRN PRN PRN Reason: LINE FLUSH Venlafaxine HCl (Effexor) 37.5 mg PO QDAY [facility] Physical Examination Vital signs: Vital Signs Pulse Ox 100 06/27/20 16:10 Results - Laboratory Findings CBC and BMP: 06/28/20 05:29 06/28/20 05:24 ABG ABG pH 7.369 pH Units (7.350-7.450) 06/27/20 20:25 ABG pCO2 36.4 mm Hg 06/27/20 20:25 ABG pO2 163.8 mm Hg (80.0-90.0) H 06/27/20 20:25 ABG O2 Saturation 99.0 % (95.0-99.0) 06/27/20 20:25 PT/INR, D-dimer PT 13.2 Sec. (12.2-14.9) 06/28/20 05:24 INR 0.98 (0.87-1.13) 06/28/20 05:24 D-Dimer < 135.00 ng/mlDDU (0-234) 06/28/20 10:56 Abnormal lab findings: Abnormal Labs 06/27/20 06/27/20 06/27/20 16:22 16:23 20:25 WBC RDW 13.1 L Seg Neuts % (Manual) Lymphocytes % (Manual) Seg Neutrophils # Man Lymphocytes # (Manual) ABG pO2 163.8 H ABG Base Excess -4.2 L Potassium 3.0 L Carbon Dioxide 21 L Glucose 102 H 06/28/20 06/28/20 05:24 05:29 WBC 13.2 H RDW Seg Neuts % (Manual) 92.0 H Lymphocytes % (Manual) 6.0 L Seg Neutrophils # Man 12.1 H Lymphocytes # (Manual) 0.8 L ABG pO2 ABG Base Excess Potassium Carbon Dioxide 16 L Glucose 192 H
[2020-06-28] MEDS: BUDESONIDE 0.5 MG/2 ML NEBU IH SCH (21:40)
[2020-06-28] MEDS ORDERED: NON-FORMULARY EACH (Budesonide/Formoterol Fumarate [Symbicort 160-4.5 Mcg Inhaler] 10.2 GM IH SCH (22:00)
[2020-06-28] MEDS: MONTELUKAST 10 MG TAB PO SCH (22:21)
[2020-06-28] MEDS: ALPRAZolam 0.5 MG TAB PO SCH (22:21)
[2020-06-28] MEDS: SODIUM BICARBONATE 650 MG TAB PO SCH (22:22)
[2020-06-28] MEDS: ENOXAPARIN 40 MG/0.4 ML INJ SUB-Q SCH (22:23)
[2020-06-29] MEDS: IPRATROPIUM/ALBUTEROL SULFATE 3 ML AMPUL.NEB IH SCH ×4 (03:19→21:16)
[2020-06-29] MEDS: methylPREDNISolone Sod Succinate 40 MG/1 ML INJ IV SCH ×3 (05:24→21:59)
[2020-06-29] MEDS: BUDESONIDE 0.5 MG/2 ML NEBU IH SCH ×3 (08:21→21:17)
[2020-06-29] MEDS: PANTOPRAZOLE 40 MG TAB PO SCH (10:21)
[2020-06-29] MEDS: ALPRAZolam 0.5 MG TAB PO SCH ×2 (10:21→21:56)
[2020-06-29] MEDS: ASPIRIN 81 MG TAB CHEW PO SCH (10:26)
[2020-06-29] MEDS: atenoloL 25 MG TAB PO SCH (10:26)
[2020-06-29] MEDS: HYDROXYCHLOROQUINE 200 MG TAB PO SCH (10:26)
[2020-06-29] MEDS: SODIUM BICARBONATE 650 MG TAB PO SCH ×2 (10:26→21:58)
[2020-06-29] MEDS: VENLAFAXINE 25 MG TAB PO SCH (10:28)
--- NOTE | 2020-06-29 10:59 | Progress Note ---
Assessment and Plan Acute asthma exacerbation Acute Hypoxic Respiratory failure SLE (systemic lupus erythematosus related syndrome) Anxiety and PTSD Acute metabolic Acidosis CHF with diastolic Dysfunction GERD -Bronchodilators- TYRA/MARISELA -Supplemental oxygen, wean for O2 sats >90% -Add Montelukast -Steroids with taper -VTE prophylaxis -Resume chronic home medications as clinically indicated- was on Plaquenil 200mg daily for Lupus -COVID negative -Supportive care -Anticipate discharge in the next 24-48 hours -Influenza vaccination per protocol Explained that she does not need antibiotics at this time. Updated patient re care plan. Discussed with RT and RN Subjective Date of service: 06/29/20 Interval history: Patient is seen today for: AE-asthma, acute bronchitis, h/o lupus like syndrome Seen and examined at bedside; 24hour events reviewed; nursing and respiratory care staff consulted; no adverse overnight events reported to me; Complains of general lethragy, malaise, poor appetite. No fevers, or chills. No vomiting. Objective - Exam Narrative Exam: VITAL SIGNS: Reviewed. GENERAL: The patient appears normally developed, vital signs as documented. HEAD: No signs of head trauma. EYES: Pupils are equal. Extraocular motions intact. EARS: Hearing grossly intact. MOUTH: Oropharynx is normal. NECK: No adenopathy, no JVD. CHEST: Chest with Diminished breath sounds bilaterally. No wheezes, rales, or rhonchi. CARDIAC: Regular rate and rhythm. S1 and S2, without murmurs, gallops, or rubs. VASCULAR: No Edema. Peripheral pulses normal and equal in all extremities. ABDOMEN: Soft, non tender and non distended. No rebound or guarding, and no masses palpated. Bowel Sounds normal. MUSCULOSKELETAL: Good range of motion of all major joints. Extremities without clubbing, cyanosis or edema. NEUROLOGIC EXAM: Alert and oriented x 3 No focal sensory or strength deficits. Speech normal. Follows commands. PSYCHIATRIC: Mood normal. SKIN: detail exam as documented in skin assessment Vital Signs - 12hr 06/29/20 06/29/20 06/29/20 03:19 04:16 09:00 Temperature 98.8 F Pulse Rate 95 H Pulse Rate [ 104 H 84 Anterior Bilateral] Respiratory 16 Rate Respiratory 18 18 Rate [Anterior Bilateral] Blood Pressure 112/61 O2 Sat by Pulse 95 Oximetry 06/29/20 06/29/20 09:50 10:26 Temperature Pulse Rate 95 H Pulse Rate [ Anterior Bilateral] Respiratory Rate Respiratory Rate [Anterior Bilateral] Blood Pressure O2 Sat by Pulse 98 Oximetry CBC and BMP: 06/28/20 05:29 06/28/20 05:24 ABG, PT/INR, D-dimer: ABG ABG pH 7.369 pH Units (7.350-7.450) 06/27/20 20:25 ABG pCO2 36.4 mm Hg 06/27/20 20:25 ABG pO2 163.8 mm Hg (80.0-90.0) H 06/27/20 20:25 ABG O2 Saturation 99.0 % (95.0-99.0) 06/27/20 20:25 PT/INR, D-dimer PT 13.2 Sec. (12.2-14.9) 06/28/20 05:24 INR 0.98 (0.87-1.13) 06/28/20 05:24 D-Dimer < 135.00 ng/mlDDU (0-234) 06/28/20 10:56 Abnormal lab findings: Abnormal Labs 06/27/20 06/27/20 06/27/20 16:22 16:23 20:25 WBC RDW 13.1 L Seg Neuts % (Manual) Lymphocytes % (Manual) Seg Neutrophils # Man Lymphocytes # (Manual) ABG pO2 163.8 H ABG Base Excess -4.2 L Potassium 3.0 L Carbon Dioxide 21 L Glucose 102 H 06/28/20 06/28/20 05:24 05:29 WBC 13.2 H RDW Seg Neuts % (Manual) 92.0 H Lymphocytes % (Manual) 6.0 L Seg Neutrophils # Man 12.1 H Lymphocytes # (Manual) 0.8 L ABG pO2 ABG Base Excess Potassium Carbon Dioxide 16 L Glucose 192 H Chest x-ray: image reviewed (No acute pulmonary infiltrates) Additional Studies: VQ scan with low probability for PE
--- NOTE | 2020-06-29 13:14 | Progress Note ---
Assessment and Plan Assessment and plan: 50-year-old female with known history of lupus, LVH, asthma, CHF and hypertension brought into the emergency room today complaining of shortness of breath and cough which has been ongoing for the past few days but got worse today. Patient has known history of asthma and was intubated sometime in September after having an exacerbation. Patient indicates that she was in [place] and was in the casino and in a crowd earlier this month celebrating her birthday. She indicates she has been having intermittent fever, cough productive of some yellowish sputum over the past few days. She was encouraged to take Tylenol for the fever by her primary care physician and indicates that fever seems to have subsided. Upon arrival in the emergency room she had several rounds of nebulizing treatments and complains of persistent cough, generalized body aches and pain and malaise. Work-up in the emergency room including chest x-ray did not reveal any significant abnormality. Prior hx of substance abuse Patient is being admitted for asthma exacerbation/bronchitis and will rule out COVID-19. 06/29: Patient improving, continue steroids. COVID 19 is negative and patient informed, Isolation discontinued, continue steroids therapy. Counselling on tobacco cessation provided for 15 mins Acute asthma exacerbation Acute Hypoxic Respiratory failure Person under investigation for COVID-19 SLE (systemic lupus erythematosus related syndrome) Anxiety and PTSD Acute metabolic Acidosis CHF with diastolic Dysfunction GERD Plan Continue supportive care Await COVID testing result Give sodium Bicarb Continue oxygen and wean as tolerated Continue solumedrol Resume Home medications DVT/GI PROPH History Interval history: Patient seen and examined, resting comfortable showing some clinical improvement no more fever noted. Hospitalist Physical - Physical exam Narrative exam: VITAL SIGNS: Reviewed. GENERAL: The patient appears normally developed, vital signs as documented. HEAD: No signs of head trauma. EYES: Pupils are equal. Extraocular motions intact. EARS: Hearing grossly intact. MOUTH: Oropharynx is normal. NECK: No adenopathy, no JVD. CHEST: Chest with Diminished breath sounds bilaterally. No wheezes, rales, or rhonchi. CARDIAC: Regular rate and rhythm. S1 and S2, without murmurs, gallops, or rubs. VASCULAR: No Edema. Peripheral pulses normal and equal in all extremities. ABDOMEN: Soft, non tender and non distended. No rebound or guarding, and no masses palpated. Bowel Sounds normal. MUSCULOSKELETAL: Good range of motion of all major joints. Extremities without clubbing, cyanosis or edema. NEUROLOGIC EXAM: Alert and oriented x 3 No focal sensory or strength deficits. Speech normal. Follows commands. PSYCHIATRIC: Mood normal. SKIN: detail exam as documented in skin assessment - Constitutional Vitals: Temp Pulse Resp BP Pulse Ox 98.8 F 95 H 18 112/61 98 06/29/20 04:16 06/29/20 10:26 06/29/20 09:00 06/29/20 04:16 06/29/20 09:50 General appearance: Present: no acute distress, well-nourished HEART Score - HEART Score Troponin: Troponin T < 0.010 ng/mL (0.00-0.029) 06/27/20 16:22 Results - Labs CBC & Chem 7: 06/28/20 05:29 06/28/20 05:24 Labs: Laboratory Last Values WBC 13.2 K/mm3 (4.5-11.0) H 06/28/20 05:29 RBC 4.30 M/mm3 (3.65-5.03) 06/28/20 05:29 Hgb 13.0 gm/dl (10.1-14.3) 06/28/20 05:29 Hct 39.1 % (30.3-42.9) 06/28/20 05:29 MCV 91 fl (79-97) 06/28/20 05:29 MCH 30 pg (28-32) 06/28/20 05:29 MCHC 33 % (30-34) 06/28/20 05:29 RDW 13.2 % (13.2-15.2) 06/28/20 05:29 Plt Count 283 K/mm3 (140-440) 06/28/20 05:29 Add Manual Diff Complete 06/28/20 05:29 Total Counted 100 06/28/20 05:29 Seg Neutrophils % Paint Trimmer Pipe Bowls 06/28/20 05:29 Seg Neuts % (Manual) 92.0 % (40.0-70.0) H 06/28/20 05:29 Band Neutrophils % 0 % 06/28/20 05:29 Lymphocytes % (Manual) 6.0 % (13.4-35.0) L 06/28/20 05:29 Reactive Lymphs % (Man) 0 % 06/28/20 05:29 Monocytes % (Manual) 2.0 % (0.0-7.3) 06/28/20 05:29 Eosinophils % (Manual) 0 % (0.0-4.3) 06/28/20 05:29 Basophils % (Manual) 0 % (0.0-1.8) 06/28/20 05:29 Metamyelocytes % 0 % 06/28/20 05:29 Myelocytes % 0 % 06/28/20 05:29 Promyelocytes % 0 % 06/28/20 05:29 Blast Cells % 0 % 06/28/20 05:29 Nucleated RBC % Not Reportable 06/28/20 05:29 Seg Neutrophils # Man 12.1 K/mm3 (1.8-7.7) H 06/28/20 05:29 Band Neutrophils # 0.0 K/mm3 06/28/20 05:29 Lymphocytes # (Manual) 0.8 K/mm3 (1.2-5.4) L 06/28/20 05:29 Abs React Lymphs (Man) 0.0 K/mm3 06/28/20 05:29 Monocytes # (Manual) 0.3 K/mm3 (0.0-0.8) 06/28/20 05:29 Eosinophils # (Manual) 0.0 K/mm3 (0.0-0.4) 06/28/20 05:29 Basophils # (Manual) 0.0 K/mm3 (0.0-0.1) 06/28/20 05:29 Metamyelocytes # 0.0 K/mm3 06/28/20 05:29 Myelocytes # 0.0 K/mm3 06/28/20 05:29 Promyelocytes # 0.0 K/mm3 06/28/20 05:29 Blast Cells # 0.0 K/mm3 06/28/20 05:29 WBC Morphology Not Reportable 06/28/20 05:29 Hypersegmented Neuts Not Reportable 06/28/20 05:29 Hyposegmented Neuts Not Reportable 06/28/20 05:29 Hypogranular Neuts Not Reportable 06/28/20 05:29 Smudge Cells Not Reportable 06/28/20 05:29 Toxic Granulation Not Reportable 06/28/20 05:29 Toxic Vacuolation Not Reportable 06/28/20 05:29 Dohle Bodies Not Reportable 06/28/20 05:29 Pelger-Huet Anomaly Not Reportable 06/28/20 05:29 Savanna Rods Not Reportable 06/28/20 05:29 Platelet Estimate Cons 06/28/20 05:29 Clumped Platelets Not Reportable 06/28/20 05:29 Plt Clumps, EDTA Not Reportable 06/28/20 05:29 Large Platelets Not Reportable 06/28/20 05:29 Giant Platelets Not Reportable 06/28/20 05:29 Platelet Satelliting Not Reportable 06/28/20 05:29 Plt Morphology Comment Not Reportable 06/28/20 05:29 RBC Morphology Not Reportable 06/28/20 05:29 Dimorphic RBCs Not Reportable 06/28/20 05:29 Polychromasia Not Reportable 06/28/20 05:29 Hypochromasia Not Reportable 06/28/20 05:29 Poikilocytosis Not Reportable 06/28/20 05:29 Anisocytosis Not Reportable 06/28/20 05:29 Microcytosis Not Reportable 06/28/20 05:29 Macrocytosis Not Reportable 06/28/20 05:29 Spherocytes Not Reportable 06/28/20 05:29 Pappenheimer Bodies Not Reportable 06/28/20 05:29 Sickle Cells Not Reportable 06/28/20 05:29 Target Cells Not Reportable 06/28/20 05:29 Tear Drop Cells Not Reportable 06/28/20 05:29 Ovalocytes Not Reportable 06/28/20 05:29 Helmet Cells Not Reportable 06/28/20 05:29 [place] Bodies Not Reportable 06/28/20 05:29 Meno Rings Not Reportable 06/28/20 05:29 Kristan Cells Not Reportable 06/28/20 05:29 Bite Cells Not Reportable 06/28/20 05:29 Crenated Cell Not Reportable 06/28/20 05:29 Elliptocytes Not Reportable 06/28/20 05:29 Acanthocytes (Spur) Not Reportable 06/28/20 05:29 Rouleaux Not Reportable 06/28/20 05:29 Hemoglobin C Crystals Not Reportable 06/28/20 05:29 Schistocytes Not Reportable 06/28/20 05:29 Malaria parasites Not Reportable 06/28/20 05:29 Junaid Bodies Not Reportable 06/28/20 05:29 Hem Pathologist Commnt No 06/28/20 05:29 PT 13.2 Sec. (12.2-14.9) 06/28/20 05:24 INR 0.98 (0.87-1.13) 06/28/20 05:24 D-Dimer < 135.00 ng/mlDDU (0-234) 06/28/20 10:56 ABG pH 7.369 pH Units (7.350-7.450) 06/27/20 20:25 ABG pCO2 36.4 mm Hg 06/27/20 20:25 ABG pO2 163.8 mm Hg (80.0-90.0) H 06/27/20 20:25 ABG HCO3 20.5 mmol/L (20.0-26.0) 06/27/20 20:25 ABG O2 Saturation 99.0 % (95.0-99.0) 06/27/20 20:25 ABG O2 Content 18.4 (0.0-44) 06/27/20 20:25 ABG Base Excess -4.2 mmol/L (-2.0-3.0) L 06/27/20 20:25 ABG Hemoglobin 13.3 gm/dl (12.0-16.0) 06/27/20 20:25 ABG Carboxyhemoglobin 1.9 % (0.0-5.0) 06/27/20 20:25 ABG Methemoglobin 0.7 % (0.0-1.5) 06/27/20 20:25 Oxyhemoglobin 96.5 % (95.0-99.0) 06/27/20 20:25 FiO2 50 % 06/27/20 20:25 Sodium 140 mmol/L (137-145) 06/28/20 05:24 Potassium 3.7 mmol/L (3.6-5.0) D 06/28/20 05:24 Chloride 102.0 mmol/L (98-107) 06/28/20 05:24 Carbon Dioxide 16 mmol/L (22-30) L 06/28/20 05:24 Anion Gap 26 mmol/L 06/28/20 05:24 BUN 10 mg/dL (7-17) 06/28/20 05:24 Creatinine 1.0 mg/dL (0.6-1.2) 06/28/20 05:24 Estimated GFR > 60 ml/min 06/28/20 05:24 BUN/Creatinine Ratio 10 % 06/28/20 05:24 Glucose 192 mg/dL (65-100) H 06/28/20 05:24 Calcium 8.8 mg/dL (8.4-10.2) 06/28/20 05:24 Ferritin 80.9 ng/mL (10.0-200.0) 06/28/20 10:56 Total Bilirubin 0.20 mg/dL (0.1-1.2) 06/27/20 16:23 AST 16 units/L (5-40) 06/27/20 16:23 ALT 12 units/L (7-56) 06/27/20 16:23 Alkaline Phosphatase 68 units/L (35-129) 06/27/20 16:23 Lactate Dehydrogenase 165 units/L (91-180) 06/28/20 10:56 Troponin T < 0.010 ng/mL (0.00-0.029) 06/27/20 16:22 C-Reactive Protein 1.10 mg/dL (0.00-1.30) 06/28/20 10:55 Total Protein 6.6 g/dL (6.3-8.2) 06/27/20 16:23 Albumin 4.0 g/dL (3.9-5) 06/27/20 16:23 Albumin/Globulin Ratio 1.5 % 06/27/20 16:23 Procalcitonin < 0.05 ng/mL (<0.15) 06/28/20 17:05 Coronavirus (PCR) Negative (Negative) 06/28/20 Unknown SARS-CoV-2 IgG Ab Nonreactive (NonReactive) 06/28/20 17:05 [place]ada/IV: Voiding Method Toilet IV Catheter Type [Right Upper INT / Saline Lock arm] IV Catheter Type [Left Wrist] INT / Saline Lock Active Medications - Current Medications Current Medications: Generic Name Dose Route Start Last Admin Trade Name Freq PRN Reason Stop Dose Admin Acetaminophen 650 mg 06/27/20 22:35 06/28/20 05:34 Tylenol PO 650 mg Q4H PRN Administration Pain MILD(1-3)/Fever >100.5/WILLETT Albuterol 2.5 mg 06/28/20 15:39 Proventil IH Q4HRT PRN Shortness Of Breath Albuterol/Ipratropium 1 ampul 06/28/20 02:00 06/29/20 08:41 Duoneb *Not For Prn Use* IH 1 ampul Q6HRT ROMMEL Administration Alprazolam 2 mg 06/28/20 22:00 06/29/20 10:21 Xanax PO 2 mg Q12HR ROMM[facility] Administration Aspirin 81 mg 06/29/20 10:00 06/29/20 10:26 Baby Aspirin PO 81 mg QDAY ROMMEL Administration Atenolol 50 mg 06/29/20 10:00 06/29/20 10:26 Tenormin PO 50 mg DAILY [facility] Administration Budesonide 0.5 mg 06/29/20 08:30 06/29/20 08:41 Pulmicort IH 0.5 mg Q12HRT ROMMEL Administration Enoxaparin Sodium 40 mg 06/28/20 22:00 06/28/20 22:23 Enoxaparin SUB-Q 40 mg QDAY@2200 [facility] Administration Protocol Hydroxychloroquine Sulfate 200 mg 06/28/20 18:00 06/29/20 10:26 Plaquenil PO 200 mg QDAY [facility] Administration Sodium Chloride 1,000 mls @ 75 mls/hr 06/27/20 22:45 Nacl 0.9% 1000 Ml IV DIRECT ROMMEL Magnesium Hydroxide 30 ml 06/27/20 22:35 Milk Of Magnesia PO Q4H PRN Constipation Methylprednisolone Sodium Succinate 40 mg 06/28/20 06:00 06/29/20 05:24 Solu-Medrol IV 40 mg Q8HR ROMMEL Administration Miscellaneous Medication 600 mg 06/29/20 10:00 Gabapentin [Gralise] PO QDAY [facility] Montelukast Sodium 10 mg 06/28/20 22:00 06/28/20 22:21 Singulair PO 10 mg QHS [facility] Administration Morphine Sulfate 2 mg 06/27/20 22:35 06/28/20 22:22 Morphine IV 2 mg Q4H PRN Administration Pain, Moderate (4-6) Ondansetron HCl 4 mg 06/27/20 22:35 06/28/20 08:43 Zofran IV 4 mg Q8H PRN Administration Nausea And Vomiting Pantoprazole Sodium 40 mg 06/29/20 10:00 06/29/20 10:21 Protonix PO 40 mg DAILY ROMMEL Administration Sodium Bicarbonate 650 mg 06/28/20 22:00 06/29/20 10:26 Sodium Bicarbonate PO 650 mg BID ROMMEL Administration Sodium Chloride 10 ml 06/28/20 10:00 06/29/20 10:27 Sodium Chloride Flush Syringe 10 Ml IV 10 ml BID ROMMEL Administration Sodium Chloride 10 ml 06/27/20 22:35 Sodium Chloride Flush Syringe 10 Ml IV PRN PRN LINE FLUSH Venlafaxine HCl 37.5 mg 06/29/20 10:00 06/29/20 10:28 Effexor PO 37.5 mg QDAY [facility] Administration
[2020-06-29] MEDS: ONDANSETRON 4 MG/2 ML INJ IV PRN ×2 (14:26→22:49)
[2020-06-29] MEDS: MORPHINE 2 MG/1 ML INJ IV PRN ×2 (14:26→22:49)
[2020-06-29] MEDS: MONTELUKAST 10 MG TAB PO SCH (21:58)
[2020-06-29] MEDS: ENOXAPARIN 40 MG/0.4 ML INJ SUB-Q SCH (22:48)
[2020-06-30] MEDS: IPRATROPIUM/ALBUTEROL SULFATE 3 ML AMPUL.NEB IH SCH ×4 (02:10→20:40)
[2020-06-30] MEDS: methylPREDNISolone Sod Succinate 40 MG/1 ML INJ IV SCH ×3 (06:25→21:09)
[2020-06-30] MEDS: BUDESONIDE 0.5 MG/2 ML NEBU IH SCH ×2 (07:45→20:40)
[2020-06-30] MEDS: VENLAFAXINE 25 MG TAB PO SCH (10:00)
[2020-06-30] MEDS: atenoloL 25 MG TAB PO SCH (10:01)
[2020-06-30] MEDS: ALPRAZolam 0.5 MG TAB PO SCH ×2 (10:01→21:10)
[2020-06-30] MEDS: PANTOPRAZOLE 40 MG TAB PO SCH (10:01)
[2020-06-30] MEDS: HYDROXYCHLOROQUINE 200 MG TAB PO SCH (10:02)
[2020-06-30] MEDS: ASPIRIN 81 MG TAB CHEW PO SCH (10:02)
[2020-06-30] MEDS: SODIUM BICARBONATE 650 MG TAB PO SCH ×2 (10:03→21:10)
[2020-06-30] MEDS: MORPHINE 2 MG/1 ML INJ IV PRN ×2 (10:09→16:19)
[2020-06-30] MEDS: ONDANSETRON 4 MG/2 ML INJ IV PRN (10:09)
--- NOTE | 2020-06-30 11:55 | Progress Note ---
Assessment and Plan Assessment and plan: 50-year-old female with known history of lupus, LVH, asthma, CHF and hypertension brought into the emergency room today complaining of shortness of breath and cough which has been ongoing for the past few days but got worse today. Patient has known history of asthma and was intubated sometime in September after having an exacerbation. Patient indicates that she was in [place] and [place] the [place] and in a crowd earlier this month celebrating her birthday. She indicates she has been having intermittent fever, cough productive of some yellowish sputum over the past few days. She was encouraged to take Tylenol for the fever by her primary care physician and indicates that fever seems to have subsided. Upon arrival in the emergency room she had several rounds of nebulizer treatments and complains of persistent cough, generalized body aches and pain and malaise. Work-up in the emergency room including chest x-ray did not reveal any significant abnormality. Prior hx of substance abuse Patient is being admitted for asthma exacerbation/bronchitis and will rule out COVID-19. 06/29: Patient improving, continue steroids. COVID 19 is negative and patient informed, Isolation discontinued, continue steroids therapy. Counselling on tobacco cessation provided for 15 mins 06/30: Clinically improved although states that she is lethargic discussed with her the plan for discharge tomorrow she wants us to also obtain differential CBC which we did which is negative for eosinophilia that she suspect that she may have. Anticipate discharge in am. Acute asthma exacerbation Acute Hypoxic Respiratory failure Person under investigation for COVID-19 SLE (systemic lupus erythematosus related syndrome) Anxiety and PTSD Acute metabolic Acidosis CHF with diastolic Dysfunction GERD Plan Continue supportive care Await COVID testing result Give sodium Bicarb Continue oxygen and wean as tolerated Continue solumedrol Resume Home medications DVT/GI PROPH History Interval history: Patient seen and examined, patient this morning complains of generalized lethargy and generalized malaise for the complaints I did explain to her the clinical findings so far. She wants to know she had COVID back in September. I did discuss with her that since this is a new disease unable to tell her as the studies have shown that the antibodies do not persist for this long in the body either. She understands that is known to take her some time to improve. This is not an unusual complaint from her during the course of multiple hospitalization here in the past. She is refused to give urine for UDS screen. Hospitalist Physical - Physical exam Narrative exam: VITAL SIGNS: Reviewed. GENERAL: The patient appears normally developed, vital signs as documented. HEAD: No signs of head trauma. EYES: Pupils are equal. Extraocular motions intact. EARS: Hearing grossly intact. MOUTH: Oropharynx is normal. NECK: No adenopathy, no JVD. CHEST: Chest with Diminished breath sounds bilaterally. No wheezes, rales, or rhonchi. CARDIAC: Regular rate and rhythm. S1 and S2, without murmurs, gallops, or rubs. VASCULAR: No Edema. Peripheral pulses normal and equal in all extremities. ABDOMEN: Soft, non tender and non distended. No rebound or guarding, and no masses palpated. Bowel Sounds normal. MUSCULOSKELETAL: Good range of motion of all major joints. Extremities without clubbing, cyanosis or edema. NEUROLOGIC EXAM: Alert and oriented x 3 No focal sensory or strength deficits. Speech normal. Follows commands. PSYCHIATRIC: Mood normal. SKIN: detail exam as documented in skin assessment - Constitutional Vitals: Temp Pulse Resp BP Pulse Ox 97.8 F 67 20 115/81 96 06/30/20 02:58 06/30/20 07:45 06/30/20 07:45 06/30/20 03:00 06/30/20 08:22 General appearance: Present: no acute distress, well-nourished HEART Score - HEART Score Troponin: Troponin T < 0.010 ng/mL (0.00-0.029) 06/27/20 16:22 Results - Labs CBC & Chem 7: 06/28/20 05:29 06/28/20 05:24 Labs: Laboratory Last Values WBC 13.2 K/mm3 (4.5-11.0) H 06/28/20 05:29 RBC 4.30 M/mm3 (3.65-5.03) 06/28/20 05:29 Hgb 13.0 gm/dl (10.1-14.3) 06/28/20 05:29 Hct 39.1 % (30.3-42.9) 06/28/20 05:29 MCV 91 fl (79-97) 06/28/20 05:29 MCH 30 pg (28-32) 06/28/20 05:29 MCHC 33 % (30-34) 06/28/20 05:29 RDW 13.2 % (13.2-15.2) 06/28/20 05:29 Plt Count 283 K/mm3 (140-440) 06/28/20 05:29 Add Manual Diff Complete 06/28/20 05:29 Total Counted 100 06/28/20 05:29 Seg Neutrophils % Landscape Contractor 06/28/20 05:29 Seg Neuts % (Manual) 92.0 % (40.0-70.0) H 06/28/20 05:29 Band Neutrophils % 0 % 06/28/20 05:29 Lymphocytes % (Manual) 6.0 % (13.4-35.0) L 06/28/20 05:29 Reactive Lymphs % (Man) 0 % 06/28/20 05:29 Monocytes % (Manual) 2.0 % (0.0-7.3) 06/28/20 05:29 Eosinophils % (Manual) 0 % (0.0-4.3) 06/28/20 05:29 Basophils % (Manual) 0 % (0.0-1.8) 06/28/20 05:29 Metamyelocytes % 0 % 06/28/20 05:29 Myelocytes % 0 % 06/28/20 05:29 Promyelocytes % 0 % 06/28/20 05:29 Blast Cells % 0 % 06/28/20 05:29 Nucleated RBC % Not Reportable 06/28/20 05:29 Seg Neutrophils # Man 12.1 K/mm3 (1.8-7.7) H 06/28/20 05:29 Band Neutrophils # 0.0 K/mm3 06/28/20 05:29 Lymphocytes # (Manual) 0.8 K/mm3 (1.2-5.4) L 06/28/20 05:29 Abs React Lymphs (Man) 0.0 K/mm3 06/28/20 05:29 Monocytes # (Manual) 0.3 K/mm3 (0.0-0.8) 06/28/20 05:29 Eosinophils # (Manual) 0.0 K/mm3 (0.0-0.4) 06/28/20 05:29 Basophils # (Manual) 0.0 K/mm3 (0.0-0.1) 06/28/20 05:29 Metamyelocytes # 0.0 K/mm3 06/28/20 05:29 Myelocytes # 0.0 K/mm3 06/28/20 05:29 Promyelocytes # 0.0 K/mm3 06/28/20 05:29 Blast Cells # 0.0 K/mm3 06/28/20 05:29 WBC Morphology Not Reportable 06/28/20 05:29 Hypersegmented Neuts Not Reportable 06/28/20 05:29 Hyposegmented Neuts Not Reportable 06/28/20 05:29 Hypogranular Neuts Not Reportable 06/28/20 05:29 Smudge Cells Not Reportable 06/28/20 05:29 Toxic Granulation Not Reportable 06/28/20 05:29 Toxic Vacuolation Not Reportable 06/28/20 05:29 Dohle Bodies Not Reportable 06/28/20 05:29 Pelger-Huet Anomaly Not Reportable 06/28/20 05:29 Savanna Rods Not Reportable 06/28/20 05:29 Platelet Estimate Cons 06/28/20 05:29 Clumped Platelets Not Reportable 06/28/20 05:29 Plt Clumps, EDTA Not Reportable 06/28/20 05:29 Large Platelets Not Reportable 06/28/20 05:29 Giant Platelets Not Reportable 06/28/20 05:29 Platelet Satelliting Not Reportable 06/28/20 05:29 Plt Morphology Comment Not Reportable 06/28/20 05:29 RBC Morphology Not Reportable 06/28/20 05:29 Dimorphic RBCs Not Reportable 06/28/20 05:29 Polychromasia Not Reportable 06/28/20 05:29 Hypochromasia Not Reportable 06/28/20 05:29 Poikilocytosis Not Reportable 06/28/20 05:29 Anisocytosis Not Reportable 06/28/20 05:29 Microcytosis Not Reportable 06/28/20 05:29 Macrocytosis Not Reportable 06/28/20 05:29 Spherocytes Not Reportable 06/28/20 05:29 Pappenheimer Bodies Not Reportable 06/28/20 05:29 Sickle Cells Not Reportable 06/28/20 05:29 Target Cells Not Reportable 06/28/20 05:29 Tear Drop Cells Not Reportable 06/28/20 05:29 Ovalocytes Not Reportable 06/28/20 05:29 Helmet Cells Not Reportable 06/28/20 05:29 [place] Bodies Not Reportable 06/28/20 05:29 [place] Rings Not Reportable 06/28/20 05:29 Whiteface Cells Not Reportable 06/28/20 05:29 Bite Cells Not Reportable 06/28/20 05:29 Crenated Cell Not Reportable 06/28/20 05:29 Elliptocytes Not Reportable 06/28/20 05:29 Acanthocytes (Spur) Not Reportable 06/28/20 05:29 Rouleaux Not Reportable 06/28/20 05:29 Hemoglobin C Crystals Not Reportable 06/28/20 05:29 Schistocytes Not Reportable 06/28/20 05:29 Malaria parasites Not Reportable 06/28/20 05:29 Junaid Bodies Not Reportable 06/28/20 05:29 Hem Pathologist Commnt No 06/28/20 05:29 PT 13.2 Sec. (12.2-14.9) 06/28/20 05:24 INR 0.98 (0.87-1.13) 06/28/20 05:24 D-Dimer < 135.00 ng/mlDDU (0-234) 06/28/20 10:56 ABG pH 7.369 pH Units (7.350-7.450) 06/27/20 20:25 ABG pCO2 36.4 mm Hg 06/27/20 20:25 ABG pO2 163.8 mm Hg (80.0-90.0) H 06/27/20 20:25 ABG HCO3 20.5 mmol/L (20.0-26.0) 06/27/20 20:25 ABG O2 Saturation 99.0 % (95.0-99.0) 06/27/20 20:25 ABG O2 Content 18.4 (0.0-44) 06/27/20 20:25 ABG Base Excess -4.2 mmol/L (-2.0-3.0) L 06/27/20 20:25 ABG Hemoglobin 13.3 gm/dl (12.0-16.0) 06/27/20 20:25 ABG Carboxyhemoglobin 1.9 % (0.0-5.0) 06/27/20 20:25 ABG Methemoglobin 0.7 % (0.0-1.5) 06/27/20 20:25 Oxyhemoglobin 96.5 % (95.0-99.0) 06/27/20 20:25 FiO2 50 % 06/27/20 20:25 Sodium 140 mmol/L (137-145) 06/28/20 05:24 Potassium 3.7 mmol/L (3.6-5.0) D 06/28/20 05:24 Chloride 102.0 mmol/L (98-107) 06/28/20 05:24 Carbon Dioxide 16 mmol/L (22-30) L 06/28/20 05:24 Anion Gap 26 mmol/L 06/28/20 05:24 BUN 10 mg/dL (7-17) 06/28/20 05:24 Creatinine 1.0 mg/dL (0.6-1.2) 06/28/20 05:24 Estimated GFR > 60 ml/min 06/28/20 05:24 BUN/Creatinine Ratio 10 % 06/28/20 05:24 Glucose 192 mg/dL (65-100) H 06/28/20 05:24 Calcium 8.8 mg/dL (8.4-10.2) 06/28/20 05:24 Ferritin 80.9 ng/mL (10.0-200.0) 06/28/20 10:56 Total Bilirubin 0.20 mg/dL (0.1-1.2) 06/27/20 16:23 AST 16 units/L (5-40) 06/27/20 16:23 ALT 12 units/L (7-56) 06/27/20 16:23 Alkaline Phosphatase 68 units/L (35-129) 06/27/20 16:23 Lactate Dehydrogenase 165 units/L (91-180) 06/28/20 10:56 Troponin T < 0.010 ng/mL (0.00-0.029) 06/27/20 16:22 C-Reactive Protein 1.10 mg/dL (0.00-1.30) 06/28/20 10:55 Total Protein 6.6 g/dL (6.3-8.2) 06/27/20 16:23 Albumin 4.0 g/dL (3.9-5) 06/27/20 16:23 Albumin/Globulin Ratio 1.5 % 06/27/20 16:23 Procalcitonin < 0.05 ng/mL (<0.15) 06/28/20 17:05 Coronavirus (PCR) Negative (Negative) 06/28/20 Unknown SARS-CoV-2 IgG Ab Nonreactive (NonReactive) 06/28/20 17:05 Tejada/IV: Voiding Method Toilet IV Catheter Type [Right Upper INT / Saline Lock arm] IV Catheter Type [Left Wrist] INT / Saline Lock Active Medications - Current Medications Current Medications: Generic Name Dose Route Start Last Admin Trade Name Freq PRN Reason Stop Dose Admin Acetaminophen 650 mg 06/27/20 22:35 06/28/20 05:34 Tylenol PO 650 mg Q4H PRN Administration Pain MILD(1-3)/Fever >100.5/WILLETT Albuterol 2.5 mg 06/28/20 15:39 Proventil IH Q4HRT PRN Shortness Of Breath Albuterol/Ipratropium 1 ampul 06/28/20 02:00 06/30/20 07:45 Duoneb *Not For Prn Use* IH 1 ampul Q6HRT ROMMEL Administration Alprazolam 2 mg 06/28/20 22:00 06/30/20 10:01 Xanax PO 2 mg Q12HR ROMMEL Administration Aspirin 81 mg 06/29/20 10:00 06/30/20 10:02 Baby Aspirin PO 81 mg QDAY ROMMEL Administration Atenolol 50 mg 06/29/20 10:00 06/30/20 10:01 Tenormin PO 50 mg DAILY ROMMEL Administration Budesonide 0.5 mg 06/29/20 08:30 06/30/20 07:45 Pulmicort IH 0.5 mg Q12HRT ROMMEL Administration Enoxaparin Sodium 40 mg 06/28/20 22:00 06/29/20 22:48 Enoxaparin SUB-Q 40 mg QDAY@2200 ROMMEL Administration Protocol Hydroxychloroquine Sulfate 200 mg 06/28/20 18:00 06/30/20 10:02 Plaquenil PO 200 mg QDAY ROMMEL Administration Sodium Chloride 1,000 mls @ 75 mls/hr 06/27/20 22:45 Nacl 0.9% 1000 Ml IV DIRECT ROMMEL Magnesium Hydroxide 30 ml 06/27/20 22:35 Milk Of Magnesia PO Q4H PRN Constipation Methylprednisolone Sodium Succinate 40 mg 06/28/20 06:00 06/30/20 06:25 Solu-Medrol IV 40 mg Q8HR ROMMEL Administration Miscellaneous Medication 600 mg 06/29/20 10:00 Gabapentin [Gralise] PO QDAY ROMMEL Montelukast Sodium 10 mg 06/28/20 22:00 06/29/20 21:58 Singulair PO 10 mg QHS ROMMEL Administration Morphine Sulfate 2 mg 06/27/20 22:35 06/30/20 10:09 Morphine IV 2 mg Q4H PRN Administration Pain, Moderate (4-6) Ondansetron HCl 4 mg 06/27/20 22:35 06/30/20 10:09 Zofran IV 4 mg Q8H PRN Administration Nausea And Vomiting Pantoprazole Sodium 40 mg 06/29/20 10:00 06/30/20 10:01 Protonix PO 40 mg DAILY ROMMEL Administration Sodium Bicarbonate 650 mg 06/28/20 22:00 06/30/20 10:03 Sodium Bicarbonate PO 650 mg BID ROMMEL Administration Sodium Chloride 10 ml 06/28/20 10:00 06/30/20 10:03 Sodium Chloride Flush Syringe 10 Ml IV 10 ml BID ROMMEL Administration Sodium Chloride 10 ml 06/27/20 22:35 Sodium Chloride Flush Syringe 10 Ml IV PRN PRN LINE FLUSH Venlafaxine HCl 37.5 mg 07/01/20 10:00 Effexor PO QDAY ROMMEL
--- NOTE | 2020-06-30 14:36 | Progress Note ---
Assessment and Plan Acute asthma exacerbation Acute Hypoxic Respiratory failure SLE (systemic lupus erythematosus related syndrome) Anxiety and PTSD Acute metabolic Acidosis CHF with diastolic Dysfunction GERD -Bronchodilators- TYRA/MARISELA -Supplemental oxygen, wean for O2 sats >90% -Add Montelukast -Steroids with taper -VTE prophylaxis -Resume chronic home medications as clinically indicated- was on Plaquenil 200mg daily for Lupus -COVID negative -Supportive care -Anticipate discharge in the next 24-48 hours -Influenza vaccination per protocol Explained that she does not need antibiotics at this time- this could be pneumonitis Updated patient re care plan. Discussed with RT and RN Subjective Date of service: 06/30/20 Interval history: Patient is seen today for: AE-asthma, acute bronchitis, h/o lupus like syndrome Seen and examined at bedside; 24hour events reviewed; nursing and respiratory care staff consulted; no adverse overnight events reported to me; Complains of general lethargy, malaise, poor appetite. No fevers, or chills. No vomiting. Objective - Exam Narrative Exam: VITAL SIGNS: Reviewed. GENERAL: The patient appears normally developed, vital signs as documented. HEAD: No signs of head trauma. EYES: Pupils are equal. Extraocular motions intact. EARS: Hearing grossly intact. MOUTH: Oropharynx is normal. NECK: No adenopathy, no JVD. CHEST: Chest with Diminished breath sounds bilaterally. No wheezes, rales, or rhonchi. CARDIAC: Regular rate and rhythm. S1 and S2, without murmurs, gallops, or rubs. VASCULAR: No Edema. Peripheral pulses normal and equal in all extremities. ABDOMEN: Soft, non tender and non distended. No rebound or guarding, and no masses palpated. Bowel Sounds normal. MUSCULOSKELETAL: Good range of motion of all major joints. Extremities without clubbing, cyanosis or edema. NEUROLOGIC EXAM: Alert and oriented x 3 No focal sensory or strength deficits. Speech normal. Follows commands. PSYCHIATRIC: Mood normal. SKIN: detail exam as documented in skin assessment Vital Signs - 12hr 06/30/20 06/30/20 06/30/20 02:58 03:00 07:45 Temperature 97.8 F Pulse Rate 66 Pulse Rate [ 67 Anterior Bilateral] Respiratory 20 Rate Respiratory 20 Rate [Anterior Bilateral] Blood Pressure Blood Pressure 115/81 [Right] O2 Sat by Pulse 98 Oximetry 06/30/20 06/30/20 08:22 12:55 Temperature 98.0 F Pulse Rate 65 Pulse Rate [ Anterior Bilateral] Respiratory 18 Rate Respiratory Rate [Anterior Bilateral] Blood Pressure 142/88 Blood Pressure [Right] O2 Sat by Pulse 96 95 Oximetry CBC and BMP: 07/01/20 07:03 07/01/20 07:03 ABG, PT/INR, D-dimer: ABG ABG pH 7.369 pH Units (7.350-7.450) 06/27/20 20:25 ABG pCO2 36.4 mm Hg 06/27/20 20:25 ABG pO2 163.8 mm Hg (80.0-90.0) H 06/27/20 20:25 ABG O2 Saturation 99.0 % (95.0-99.0) 06/27/20 20:25 PT/INR, D-dimer PT 13.2 Sec. (12.2-14.9) 06/28/20 05:24 INR 0.98 (0.87-1.13) 06/28/20 05:24 D-Dimer < 135.00 ng/mlDDU (0-234) 06/28/20 10:56 Abnormal lab findings: Abnormal Labs 06/27/20 06/27/20 06/27/20 16:22 16:23 20:25 WBC RDW 13.1 L Seg Neuts % (Manual) Lymphocytes % (Manual) Seg Neutrophils # Man Lymphocytes # (Manual) ABG pO2 163.8 H ABG Base Excess -4.2 L Potassium 3.0 L Carbon Dioxide 21 L Glucose 102 H 06/28/20 06/28/20 05:24 05:29 WBC 13.2 H RDW Seg Neuts % (Manual) 92.0 H Lymphocytes % (Manual) 6.0 L Seg Neutrophils # Man 12.1 H Lymphocytes # (Manual) 0.8 L ABG pO2 ABG Base Excess Potassium Carbon Dioxide 16 L Glucose 192 H
[2020-06-30] MEDS ORDERED: hydrALAZINE 20 MG/1 ML INJ IV ONE (18:06)
[2020-06-30] MEDS: ENOXAPARIN 40 MG/0.4 ML INJ SUB-Q SCH (21:09)
[2020-06-30] MEDS: MONTELUKAST 10 MG TAB PO SCH (21:10)
[2020-07-01] MEDS: IPRATROPIUM/ALBUTEROL SULFATE 3 ML AMPUL.NEB IH SCH ×3 (01:50→08:11)
[2020-07-01] MEDS ORDERED: TEMAZEPAM 15 MG CAP PO PRN (02:13)
[2020-07-01] MEDS ORDERED: ZOLPIDEM 5 MG TAB PO PRN (02:31)
[2020-07-01] MEDS: GABAPENTIN 300 MG CAP PO SCH ×2 (05:47→11:44)
[2020-07-01] MEDS: methylPREDNISolone Sod Succinate 40 MG/1 ML INJ IV SCH (05:50)
[2020-07-01] MEDS: BUDESONIDE 0.5 MG/2 ML NEBU IH SCH ×2 (06:39→08:11)
[2020-07-01 07:49] LABS: Hematocrit 39.3 % (30.3-42.9); Hemoglobin 13.1 gm/dl (10.1-14.3); Mean Corpuscular HGB Conc 33 % (30-34); Mean Corpuscular Volume 91 fl (79-97); Platelet Count 286 K/mm3 (140-440); Red Blood Count 4.32 M/mm3 (3.65-5.03); Red Cell Distribution Width 13.5 % (13.2-15.2)
[2020-07-01 07:59] LABS: BUN/Creatinine Ratio 20; Blood Urea Nitrogen 16 mg/dL (7-17); Calcium 8.8 mg/dL (8.4-10.2); Hemolysis Index 16
[2020-07-01 09:26] LABS: Basophils % (Manual) 0 % (0.0-1.8); Eosinophils % (Manual) 0 % (0.0-4.3); Platelet Estimate Consistent w Auto; RBC Morphology Normal; Total Cells Counted 100
--- NOTE | 2020-07-01 09:43 | Progress Note ---
Assessment and Plan Cultures: SARS CoV2 PCR negative Assessment: 50 years old female with history of lupus, severe asthma requiring previous intubation, CHF, hypertension, admitted on 06/27/2020 secondary to a week history of intermittent fever, cough, generalized malaise, progressive shortness of breath: #Asthma exacerbation: Chest x-ray did not show consolidations. SARS-CoV-2 PCR and IgG both negative. VQ scan with low probability for PE. Symptoms may be going on for longer than a week. #Acute hypoxia: Remains on 3 L nasal cannula. #Leukocytosis: likely due to steroids, procalcitonin normal, inflammatory markers normal Recommendations: -Patient started on Solu-Medrol 40 mg IV every 8 hours -Patient reporting feeling very sick, reporting chest congestion, dizziness, shortness of breath, body aches and subjective fever. On exam, patient remains afebrile, noted wheezing bilaterally. At this point, there is no indication of fever, hypotension, elevated procalcitonin. -No need to test for influenza or repeat COVID test as there is no fever/normal inflammatory markers. -Asthma exacerbation per IMS -Patient is requesting iron level test as she had previous low iron and she believes her dizziness may be related to it. Her Hg is normal. will follow Eneida Brooks MD Infectious Diseases Auto [employer] [facility] ([facility]) M [phone] O [phone] Subjective Date of service: 07/01/20 Principal diagnosis: SOB Interval history: Patient reports feeling sick, complaining of shortness of breath, fatigue, dizziness, noted no fever Objective - Exam Narrative Exam: General appearance: Alert in NAD anxious Eyes: anicteric sclerae, moist conjunctivae; no lid-lag; PERRLA HENT: Normocephalic, Atraumatic; normal external ears, nares open, oropharynx clear Neck: supple, tracheal midline, no JVD Lungs: Bilateral wheezing CV: RRR no murmur Abdomen: Soft, non-tender; no masses or hepatosplenomegaly Extremities: no edema, no cyanosis Skin: No rash. Psych: Anxious Neuro: alert and oriented x 3. Moving all extermities - Constitutional Vitals: Vital Signs Temp Pulse Resp BP Pulse Ox 98.4 F 80 18 119/79 96 07/01/20 05:58 07/01/20 06:39 07/01/20 06:39 07/01/20 05:55 07/01/20 08:15 Temperature -Last 24 Hours Temperature 98.4 F Temperature 98.0 F Temperature 97.8 F Temperature 98.0 F - Labs CBC & Chem 7: 07/01/20 07:03 07/01/20 07:03 Labs: Abnormal lab results 07/01/20 07/01/20 Range/Units 07:03 07:03 WBC 16.0 H (4.5-11.0) K/mm3 Seg Neuts % (Manual) 88.0 H (40.0-70.0) % Lymphocytes % (Manual) 10.0 L (13.4-35.0) % Seg Neutrophils # Man 14.1 H (1.8-7.7) K/mm3 Glucose 112 H (65-100) mg/dL
[2020-07-01] MEDS ORDERED: VENLAFAXINE 37.5 MG TAB PO SCH (10:00)
--- NOTE | 2020-07-01 10:44 | Discharge Summary ---
Providers - Providers Date of Admission: 06/28/20 08:12 Attending physician: TERESA TANG MD 06/27/20 22:35 Consult to Physician [CONS] Routine Comment: Consulting Provider: YOU HERNANDEZ Physician Instructions: Reason For Exam: Status Asthmaticus,Bronchitis R/O COVID 19 06/28/20 06:20 Consult to Physician [CONS] Routine Comment: Consulting Provider: NANCY TAYLOR Physician Instructions: Reason For Exam: STATUS ASTHMATICUS 06/30/20 15:36 Physical Therapy Evaluation and Treat [CONS] Routine Comment: Reason For Exam: BLE weakness, post fall Primary care physician: INFANTRY [employer]RE CREW[employer]BER Hospitalization Reason for admission: asthma exacerbation Condition: Stable Hospital course: 10-year-old female with known history of lupus, LVH, asthma, CHF and hypertension brought into the emergency room today complaining of shortness of breath and cough which has been ongoing for the past few days but got worse today. Patient has known history of asthma and was intubated sometime in September after having an exacerbation. Patient indicates that she was in [place] and was in the [facility] and in a crowd earlier this month celebrating her birthday. She indicates she has been having intermittent fever, cough productive of some yellowish sputum over the past few days. She was encouraged to take Tylenol for the fever by her primary care physician and indicates that fever seems to have subsided. Upon arrival in the emergency room she had several rounds of nebulizer treatments and complains of persistent cough, generalized body aches and pain and malaise. Work-up in the emergency room including chest x-ray did not reveal any significant abnormality. Prior hx of substance abuse Patient is being admitted for asthma exacerbation/bronchitis and will rule out COVID-19. 06/29: Patient improving, continue steroids. COVID 19 is negative and patient informed, Isolation discontinued, continue steroids therapy. Counselling on tobacco cessation provided for 15 mins 06/30: Clinically improved although states that she is lethargic discussed with her the plan for discharge tomorrow she wants us to also obtain differential CBC which we did which is negative for eosinophilia that she suspect that she may have. Anticipate discharge in am. 07/01: Patient seen this morning overnight the patient had a fall despite multiple instructions not to get up from bed despite these discussions the patient also continues to get up from bed to the bathroom after the fall. I did advise nursing staff that based on prior history that with me informing the patient that she will be going home today that she would begin to come up with various behaviors to hold her from being discharged I am unsure if the patient has some psychological secondary gain but in the past have recommended an outpatient psych evaluation considering her anxiety and PTSD she has had multiple studies at [facility] where she was diagnosed with vocal cord dysfunction and psychogenic disease. Yesterday her lungs were clear they remain clear she is refusing ambulation. She was heavily sedated earlier this morning but has since weaned. I strongly believe that the patient will benefit from an outpatient psych evaluation she also was requested to give urine for UDS but she carefully removes the urine urine collection device. Patient is on 2 mg of Xanax twice daily I believe this needs to be tapered down to have recommended that she follows with her psychiatrist to get this done Acute asthma exacerbation Acute Hypoxic Respiratory failure Person under investigation for COVID-19 SLE (systemic lupus erythematosus related syndrome) Anxiety and PTSD Acute metabolic Acidosis CHF with diastolic Dysfunction GERD Disposition: DC-30 STILL A PATIENT Time spent for discharge: 35 mins Core Measure Documentation - Palliative Care Palliative Care/ Comfort Measures: Not Applicable - Core Measures Any of the following diagnoses?: none Exam - Physical Exam Narrative exam: VITAL SIGNS: Reviewed. GENERAL: The patient appears normally developed, vital signs as documented. HEAD: No signs of head trauma. EYES: Pupils are equal. Extraocular motions intact. EARS: Hearing grossly intact. MOUTH: Oropharynx is normal. NECK: No adenopathy, no JVD. CHEST: Chest with Diminished breath sounds bilaterally. No wheezes, rales, or rhonchi. CARDIAC: Regular rate and rhythm. S1 and S2, without murmurs, gallops, or rubs. VASCULAR: No Edema. Peripheral pulses normal and equal in all extremities. ABDOMEN: Soft, non tender and non distended. No rebound or guarding, and no masses palpated. Bowel Sounds normal. MUSCULOSKELETAL: Good range of motion of all major joints. Extremities without clubbing, cyanosis or edema. NEUROLOGIC EXAM: Alert and oriented x 3 No focal sensory or strength deficits. Speech normal. Follows commands. PSYCHIATRIC: Mood normal. SKIN: detail exam as documented in skin assessment - Constitutional Vitals: Temp Pulse Resp BP Pulse Ox 98.4 F 80 18 119/79 96 07/01/20 05:58 07/01/20 06:39 07/01/20 06:39 07/01/20 05:55 07/01/20 08:15 Plan Activity: advance as tolerated, fall precautions Diet: low fat Special Instructions: record daily weights, physical therapy, occupational therapy Follow up with: PRIMARY CARE, [Primary Care Provider] - 7 Days NANCY TAYLOR MD [Staff Physician] - 7 Days [facility] [Outside] - 7 Days Prescriptions: Montelukast [Singulair] 10 mg PO QHS 30 Days tablet levoFLOXacin [Levaquin] 750 mg PO QDAY #3 tablet Prednisone [predniSONE 5 mg (6-Day Pack, 21 Tabs)] 5 mg PO .TAPER #1 tab.ds.pk Budesonide/Formoterol Fumarate [Symbicort 160-4.5 Mcg Inhaler] 10.2 gm IH BID 30 Days hfa.aer.ad
[2020-07-01] MEDS: ASPIRIN 81 MG TAB CHEW PO SCH (11:44)
[2020-07-01] MEDS: HYDROXYCHLOROQUINE 200 MG TAB PO SCH ×2 (11:44→11:45)
[2020-07-01] MEDS: PANTOPRAZOLE 40 MG TAB PO SCH (11:44)
[2020-07-01] MEDS: SODIUM BICARBONATE 650 MG TAB PO SCH (11:44)
[2020-07-01] MEDS: atenoloL 25 MG TAB PO SCH (11:50)
[2020-07-01 11:51] VITALS: BP 126/74
== END 2020-07-01 12:27 | disposition home or self-care (01) | DRG 202 ==
LOC: ED 15:57 → 3A 21:49 → OBSVTOIN 06-28 08:12 → 3A 06-30 11:41
PROVIDERS: ADMIT Internal Medicine Geriatric Medicine; ATTEND Internal Medicine
PROC: 4A033R1 Measurement of Arterial Saturation, Peripheral, Percutaneous Approach (ICD-10-PCS; principal; 2020-06-27)
DX: J45.51 Severe persistent asthma with (acute) exacerbation (principal); J96.01 Acute respiratory failure with hypoxia; E87.2 Acidosis; Z91.030 Bee allergy status; Z91.041 Radiographic dye allergy status; F17.200 Nicotine dependence, unspecified, uncomplicated; I11.0 Hypertensive heart disease with heart failure; I50.9 Heart failure, unspecified; Z20.828 Contact with and (suspected) exposure to other viral communicable diseases; M32.9 Systemic lupus erythematosus, unspecified; F41.9 Anxiety disorder, unspecified; F43.10 Post-traumatic stress disorder, unspecified; K21.9 Gastro-esophageal reflux disease without esophagitis; D72.829 Elevated white blood cell count, unspecified
CPT/HCPCS: 36415; 71045; 78580; 80048; 80053; 82728; 82803; 83615; 84145; 84484; 85007; 85025; 85027; 85379; 85610; 86140; 87116; 87641; 93005; 94640; 94644; 94760; 96374; 96375; 99406; G0378; A9540; J0360; J1170; J1200; J1650; J2270; J2405; J2920; J2930; J3475; J3480; J7030; U0003

== ENCOUNTER 2020-07-06 04:22 | Inpatient (IN) | payer OTHER, SELFPAY ==
[2020-07-06] MEDS ORDERED: IPRATROPIUM 0.02% NEBU 2.5 ML IH ONE (04:57)
[2020-07-06] MEDS ORDERED: ALBUTEROL 2.5 MG/3 ML NEBU IH ONE ×2 (04:57→16:49)
[2020-07-06 05:55] LABS: Hematocrit 37.5 % (30.3-42.9); Hemoglobin 12.3 gm/dl (10.1-14.3); Mean Corpuscular HGB Conc 33 % (30-34); Mean Corpuscular Volume 90 fl (79-97); Platelet Count 265 K/mm3 (140-440); Red Blood Count 4.16 M/mm3 (3.65-5.03); Red Cell Distribution Width 13.8 % (13.2-15.2)
--- NOTE | 2020-07-06 05:56 | XRay Report ---
CHEST 1 VIEW INDICATION / CLINICAL INFORMATION: dyspnea wheezing hypoxia. COMPARISON: 06/27/2020 FINDINGS: SUPPORT DEVICES: None. HEART / MEDIASTINUM: No significant abnormality. LUNGS / PLEURA: No significant pulmonary or pleural abnormality. No pneumothorax. ADDITIONAL FINDINGS: No significant additional findings. IMPRESSION: 1. No acute findings. No interval change. Signer Name: Sakshi Birmingham MD Signed: 07/06/2020 5:52 AM Workstation Name: [id number]
[2020-07-06 06:09] LABS: BUN/Creatinine Ratio 20; Blood Urea Nitrogen 16 mg/dL (7-17); Hemolysis Index 69
[2020-07-06] MEDS ORDERED: ACETAMINOPHEN 325 MG TAB PO ONE (06:35)
[2020-07-06 06:36] LABS: Anisocytosis 1+; Basophils % (Manual) 0 % (0.0-1.8); Platelet Estimate Consistent w Auto; Total Cells Counted 100
[2020-07-06] MEDS ORDERED: KETOROLAC 30 MG/1 ML INJ IV ONE (07:45)
[2020-07-06] MEDS ORDERED: SODIUM CHLORIDE 0.9% 1000 ML 1,000 ML IV ONE (07:45)
[2020-07-06] MEDS ORDERED: methylPREDNISolone Sod Succinate 125 MG/2 ML INJ IV ONE (07:45)
[2020-07-06] MEDS ORDERED: FAMOTIDINE 20 MG/2 ML INJ IV ONE (07:46)
[2020-07-06] MEDS ORDERED: MAGNESIUM SULFATE 2 GM/50 ML BAG IV ONE (07:52)
--- NOTE | 2020-07-06 07:59 | Emergency Department Report ---
ED Fever HPI - General Chief Complaint: Dyspnea/Respdistress Stated Complaint: CHANDA Time Seen by Provider: 07/06/20 04:57 - History of Present Illness Initial Comments: 50-year-old female with a past medical history of asthma, CHF, hypertension, and lupus complains of generalized body aches, fever, nausea, vomiting, diarrhea, wheezing or shortness of breathPatient was admitted here June 28 until July 01 for status asthmaticus with a negative Covid test on June 28. She also had a low probability V/Q for pulmonary embolism and a negative chest x-ray during hospitalization here. She also complained of weakness with falls. Patient then was admitted to [facility] on July 01 until the for asthma exacerbation, positive COVID-19 infection tested on July 01, and near syncope. Patient was just discharged yesterday and states she went home and felt worse. Patient apparently was provided a walker with occupational physical therapy arrangements by [facility]. She states since being home for less than 1 day her symptoms have worsened. She had wheezing that was not improved with her inhaler she. She had fever with generalized body pain with worsening weakness. She was unable to ambulate even with a walker. Patient apparently had the same symptoms during recent admission here. ED Review of Systems ROS: Stated complaint: CHANDA Other details as noted in HPI ED Past Medical Hx - Past Medical History Hx Hypertension: Yes Hx Congestive Heart Failure: Yes Hx Diabetes: No Hx Asthma: Yes Hx COPD: No Additional medical history: Lupus, left ventricular hypertrophy - Surgical History Additional Surgical History: tubal ligation. endometrial ablasion - Social History Smoking Status: Current Every Day Smoker Substance Use Type: Marijuana - Medications Home Medications: Home Medications Medication Instructions Recorded Confirmed Last Taken Type ALBUTEROL Inhaler(NF) [VENTOLIN 1 puff IH Q4HR PRN #1 inha 07/10/18 06/28/20 06/27/20 Rx Inhaler(NF)] atenoloL [Tenormin] 50 mg PO DAILY 12/28/18 06/28/20 06/27/20 History Aspirin [Aspirin BABY CHEW TAB] 81 mg PO QDAY #30 tab.chew 12/30/18 06/28/20 06/27/20 Rx Hydroxychloroquine [Plaquenil] 200 mg PO QDAY 30 Days tablet 12/30/18 06/28/20 06/27/20 Rx Pantoprazole [Protonix TAB] 40 mg PO DAILY #30 tablet 05/04/19 06/28/20 10/06/19 Rx Gabapentin [Gralise] 600 mg PO QDAY 10/09/19 06/28/20 06/27/20 History Venlafaxine [Effexor 25mg tab] 37.5 mg PO QDAY 10/09/19 06/28/20 06/27/20 History ALPRAZolam [Xanax TAB] 2 mg PO Q12HR 06/28/20 06/28/20 06/27/20 History Budesonide/Formoterol Fumarate 10.2 gm IH BID 30 Days hfa.aer.ad 07/01/20 Unknown Rx [Symbicort 160-4.5 Mcg Inhaler] Montelukast [Singulair] 10 mg PO QHS 30 Days tablet 07/01/20 Unknown Rx Prednisone [predniSONE 5 mg (6-Day 5 mg PO .TAPER #1 tab.ds.pk 07/01/20 Unknown Rx Pack, 21 Tabs)] levoFLOXacin [Levaquin] 750 mg PO QDAY #3 tablet 07/01/20 Unknown Rx ED Physical Exam - General Limitations: No Limitations ED Course Vital Signs 07/06/20 07/06/20 07/06/20 04:27 04:38 04:39 Temperature 101.7 F H Pulse Rate 116 H 120 H Pulse Rate [ Bilateral Throughout] Respiratory 15 Rate Respiratory Rate [Bilateral Throughout] Blood Pressure O2 Sat by Pulse 95 Oximetry 07/06/20 07/06/20 07/06/20 04:40 04:42 04:43 Temperature Pulse Rate 113 H 100 H 104 H Pulse Rate [ Bilateral Throughout] Respiratory 20 29 H 24 Rate Respiratory Rate [Bilateral Throughout] Blood Pressure 154/106 154/106 O2 Sat by Pulse 95 95 95 Oximetry 07/06/20 06:53 Temperature Pulse Rate Pulse Rate [ 98 H Bilateral Throughout] Respiratory Rate Respiratory 20 Rate [Bilateral Throughout] Blood Pressure O2 Sat by Pulse Oximetry ED Medical Decision Making - Lab Data Result diagrams: 07/06/20 05:24 07/06/20 05:24 Lab Results 07/06/20 07/06/20 Range/Units 05:24 05:24 WBC 13.5 H (4.5-11.0) K/mm3 RBC 4.16 (3.65-5.03) M/mm3 Hgb 12.3 (10.1-14.3) gm/dl Hct 37.5 (30.3-42.9) % MCV 90 (79-97) fl MCH 30 (28-32) pg MCHC 33 (30-34) % RDW 13.8 (13.2-15.2) % Plt Count 265 (140-440) K/mm3 Add Manual Diff Complete Total Counted 100 Seg Neuts % (Manual) 86.0 H (40.0-70.0) % Band Neutrophils % 0 % Lymphocytes % (Manual) 6.0 L (13.4-35.0) % Reactive Lymphs % (Man) 2.0 % Monocytes % (Manual) 3.0 (0.0-7.3) % Eosinophils % (Manual) 3.0 (0.0-4.3) % Basophils % (Manual) 0 (0.0-1.8) % Metamyelocytes % 0 % Myelocytes % 0 % Promyelocytes % 0 % Blast Cells % 0 % Nucleated RBC % Not Reportable Seg Neutrophils # Man 11.6 H (1.8-7.7) K/mm3 Band Neutrophils # 0.0 K/mm3 Lymphocytes # (Manual) 0.8 L (1.2-5.4) K/mm3 Abs React Lymphs (Man) 0.3 K/mm3 Monocytes # (Manual) 0.4 (0.0-0.8) K/mm3 Eosinophils # (Manual) 0.4 (0.0-0.4) K/mm3 Basophils # (Manual) 0.0 (0.0-0.1) K/mm3 Metamyelocytes # 0.0 K/mm3 Myelocytes # 0.0 K/mm3 Promyelocytes # 0.0 K/mm3 Blast Cells # 0.0 K/mm3 WBC Morphology Not Reportable Hypersegmented Neuts Not Reportable Hyposegmented Neuts Not Reportable Hypogranular Neuts Not Reportable Smudge Cells Not Reportable Toxic Granulation Not Reportable Toxic Vacuolation Not Reportable Dohle Bodies Not Reportable Pelger-Huet Anomaly Not Reportable [place] Rods Not Reportable Platelet Estimate Consistent w auto Clumped Platelets Not Reportable Plt Clumps, EDTA Not Reportable Large Platelets Not Reportable Giant Platelets Not Reportable Platelet Satelliting Not Reportable Plt Morphology Comment Not Reportable RBC Morphology Not Reportable Dimorphic RBCs Not Reportable Polychromasia Not Reportable Hypochromasia Not Reportable Poikilocytosis Not Reportable Anisocytosis 1+ Microcytosis Not Reportable Macrocytosis Not Reportable Spherocytes Not Reportable Pappenheimer Bodies Not Reportable Sickle Cells Not Reportable Target Cells Not Reportable Tear Drop Cells Not Reportable Ovalocytes Not Reportable Helmet Cells Not Reportable [place] Bodies Not Reportable [place] Rings Not Reportable Kristan Cells Not Reportable Bite Cells Not Reportable Crenated Cell Not Reportable Elliptocytes Not Reportable Acanthocytes (Spur) Not Reportable Rouleaux Not Reportable Hemoglobin C Crystals Not Reportable Schistocytes Not Reportable Malaria parasites Not Reportable Junaid Bodies Not Reportable Hem Pathologist Commnt No Sodium 139 (137-145) mmol/L Potassium 4.3 (3.6-5.0) mmol/L Chloride 101.5 (98-107) mmol/L Carbon Dioxide 28 (22-30) mmol/L Anion Gap 14 mmol/L BUN 16 (7-17) mg/dL Creatinine 0.8 (0.6-1.2) mg/dL Estimated GFR > 60 ml/min BUN/Creatinine Ratio 20 % Glucose 90 (65-100) mg/dL Calcium 9.0 (8.4-10.2) mg/dL - Radiology Data Radiology results: report reviewed CHEST 1 VIEW INDICATION / CLINICAL INFORMATION: dyspnea wheezing hypoxia. COMPARISON: 06/27/2020 FINDINGS: SUPPORT DEVICES: None. HEART / MEDIASTINUM: No significant abnormality. LUNGS / PLEURA: No significant pulmonary or pleural abnormality. No pneumothorax. ADDITIONAL FINDINGS: No significant additional findings. IMPRESSION: 1. No acute findings. No interval change. - Medical Decision Making Patient presents with asthma exacerbation and frequent recent hospital admissions between [facility] and [facility]. She does present with wheezing and status asthmaticus without hypoxia or infiltrate on chest x-ray. Patient treated with Solu-Medrol, bronchodilators, and IV magnesium for status asthmaticus and received Tylenol and Toradol for fever and generalized body aches. Normal saline ordered for decreased p.o. intake secondary to nausea vomiting and diarrhea patient will be readmitted to the hospital here for further treatment Critical Care Time: No Critical care attestation.: If time is entered above; I have spent that time in minutes in the direct care of this critically ill patient, excluding procedure time. ED Disposition Clinical Impression: COVID-19, Lupus, Generalized weakness, Nausea vomiting and diarrhea, Acute asthma exacerbation Disposition: DC-09 OP ADMIT IP TO THIS HOSP Is pt being admited?: Yes Condition: Stable Time of Disposition: 08:04 (REBEKAH GARNER)
--- NOTE | 2020-07-06 13:53 | History and Physical Report ---
History of Present Illness Date of examination: 07/06/20 Date of admission: 07/06/20 08:49 Chief complaint: Shortness of breath History of present illness: 50-year-old female with a past medical history of asthma, CHF, hypertension, and lupus complains of generalized body weakness, fever and shortness of breath. Patient states the symptoms started right after she was discharged from [facility]. She has associated wheezing, fever, cough and she has been using her inhalers with no significant effect. She also has associated diarrhea. Of note, she was hospitalized here in [facility] on 06/28 for asthma exacerbation and had a negative Covid test during the admission. She was treated and discharged. She presented to [facility] for further evaluation after discharge from here and over there, she was found to have positive COVID-19 test and she was placed on steroids and subsequently discharged on Eliquis prophylaxis for DVT. She states that she did not receive remdesivir during the admission. She was discharged from [facility] on 07/05. She went home and felt worse. She said that she passed out about 2 times. Due to persistent symptoms, she called EMS who brought her to [facility] for further evaluation. Past History Past Medical History: other (Lupus, hypertension, anemia, asthma) Medications and Allergies Allergies Allergy/AdvReac Type Severity Reaction Status Date / Time bee venom protein (honey bee) Allergy Shortness Verified 07/10/18 16:39 of Breath iv contrast Allergy Hives Uncoded 07/10/18 16:36 Home Medications Medication Instructions Recorded Confirmed Last Taken Type ALBUTEROL Inhaler(NF) [VENTOLIN 1 puff IH Q4HR PRN #1 inha 07/10/18 06/28/20 06/27/20 Rx Inhaler(NF)] atenoloL [Tenormin] 50 mg PO DAILY 12/28/18 06/28/20 06/27/20 History Aspirin [Aspirin BABY CHEW TAB] 81 mg PO QDAY #30 tab.chew 12/30/18 06/28/20 06/27/20 Rx Hydroxychloroquine [Plaquenil] 200 mg PO QDAY 30 Days tablet 12/30/18 06/28/20 06/27/20 Rx Pantoprazole [Protonix TAB] 40 mg PO DAILY #30 tablet 05/04/19 06/28/20 10/06/19 Rx Gabapentin [Gralise] 600 mg PO QDAY 10/09/19 06/28/20 06/27/20 History Venlafaxine [Effexor 25mg tab] 37.5 mg PO QDAY 10/09/19 06/28/20 06/27/20 History ALPRAZolam [Xanax TAB] 2 mg PO Q12HR 06/28/20 06/28/20 06/27/20 History Budesonide/Formoterol Fumarate 10.2 gm IH BID 30 Days hfa.aer.ad 07/01/20 Unknown Rx [Symbicort 160-4.5 Mcg Inhaler] Montelukast [Singulair] 10 mg PO QHS 30 Days tablet 07/01/20 Unknown Rx Prednisone [predniSONE 5 mg (6-Day 5 mg PO .TAPER #1 tab.ds.pk 07/01/20 Unknown Rx Pack, 21 Tabs)] levoFLOXacin [Levaquin] 750 mg PO QDAY #3 tablet 07/01/20 Unknown Rx Active Meds: Active Medications Acetaminophen (Tylenol) 650 mg PO Q4H PRN PRN Reason: Pain MILD(1-3)/Fever >100.5/WILLETT Aspirin (Baby Aspirin) 81 mg PO QDAY ROMMEL Dexamethasone (Decadron) 6 mg IV DAILY [facility] Stop: 07/16/20 13:59 Hydroxychloroquine Sulfate (Plaquenil) 200 mg PO QDAY ROMMEL Montelukast Sodium (Singulair) 10 mg PO QHS ROMMEL Ondansetron HCl (Zofran) 4 mg IV Q8H PRN PRN Reason: Nausea And Vomiting Pantoprazole Sodium (Protonix) 40 mg PO DAILY ROMMEL Sodium Chloride (Sodium Chloride Flush Syringe 10 Ml) 10 ml IV BID ROMMEL Sodium Chloride (Sodium Chloride Flush Syringe 10 Ml) 10 ml IV PRN PRN PRN Reason: LINE FLUSH Venlafaxine HCl (Effexor) 37.5 mg PO DAILY [facility] Review of Systems Respiratory: wheezing Exam - Physical Exam Narrative exam: VITAL SIGNS: Reviewed. GENERAL: Awake and alert on response to questions HEAD: No signs of head trauma. EYES: Pupils are equal. Extraocular motions intact. EARS: Hearing grossly intact. MOUTH: Oropharynx is normal. NECK: No adenopathy, no JVD. CHEST: Diffuse expiratory wheezes CARDIAC: Regular rate and rhythm. S1 and S2, without murmurs, gallops, or rubs. VASCULAR: No Edema. Peripheral pulses normal and equal in all extremities. ABDOMEN: Soft, non tender and non distended. No rebound or guarding, and no masses palpated. Bowel Sounds normal. MUSCULOSKELETAL: Good range of motion of all major joints. Extremities without clubbing, cyanosis or edema. NEUROLOGIC EXAM: Alert and oriented x3. No focal neurologic deficits PSYCHIATRIC: Stable mood SKIN: No obvious lesions - Constitutional Vitals: Temp Pulse Resp BP Pulse Ox 102.4 F H 78 20 110/64 98 07/06/20 07:12 07/06/20 11:00 07/06/20 11:00 07/06/20 11:00 07/06/20 11:00 Results - Labs CBC & Chem 7: 07/06/20 05:24 07/06/20 05:24 Labs: Laboratory Last Values WBC 13.5 K/mm3 (4.5-11.0) H 07/06/20 05:24 RBC 4.16 M/mm3 (3.65-5.03) 07/06/20 05:24 Hgb 12.3 gm/dl (10.1-14.3) 07/06/20 05:24 Hct 37.5 % (30.3-42.9) 07/06/20 05:24 MCV 90 fl (79-97) 07/06/20 05:24 MCH 30 pg (28-32) 07/06/20 05:24 MCHC 33 % (30-34) 07/06/20 05:24 RDW 13.8 % (13.2-15.2) 07/06/20 05:24 Plt Count 265 K/mm3 (140-440) 07/06/20 05:24 Add Manual Diff Complete 07/06/20 05:24 Total Counted 100 07/06/20 05:24 Seg Neuts % (Manual) 86.0 % (40.0-70.0) H 07/06/20 05:24 Band Neutrophils % 0 % 07/06/20 05:24 Lymphocytes % (Manual) 6.0 % (13.4-35.0) L 07/06/20 05:24 Reactive Lymphs % (Man) 2.0 % 07/06/20 05:24 Monocytes % (Manual) 3.0 % (0.0-7.3) 07/06/20 05:24 Eosinophils % (Manual) 3.0 % (0.0-4.3) 07/06/20 05:24 Basophils % (Manual) 0 % (0.0-1.8) 07/06/20 05:24 Metamyelocytes % 0 % 07/06/20 05:24 Myelocytes % 0 % 07/06/20 05:24 Promyelocytes % 0 % 07/06/20 05:24 Blast Cells % 0 % 07/06/20 05:24 Nucleated RBC % Not Reportable 07/06/20 05:24 Seg Neutrophils # Man 11.6 K/mm3 (1.8-7.7) H 07/06/20 05:24 Band Neutrophils # 0.0 K/mm3 07/06/20 05:24 Lymphocytes # (Manual) 0.8 K/mm3 (1.2-5.4) L 07/06/20 05:24 Abs React Lymphs (Man) 0.3 K/mm3 07/06/20 05:24 Monocytes # (Manual) 0.4 K/mm3 (0.0-0.8) 07/06/20 05:24 Eosinophils # (Manual) 0.4 K/mm3 (0.0-0.4) 07/06/20 05:24 Basophils # (Manual) 0.0 K/mm3 (0.0-0.1) 07/06/20 05:24 Metamyelocytes # 0.0 K/mm3 07/06/20 05:24 Myelocytes # 0.0 K/mm3 07/06/20 05:24 Promyelocytes # 0.0 K/mm3 07/06/20 05:24 Blast Cells # 0.0 K/mm3 07/06/20 05:24 WBC Morphology Not Reportable 07/06/20 05:24 Hypersegmented Neuts Not Reportable 07/06/20 05:24 Hyposegmented Neuts Not Reportable 07/06/20 05:24 Hypogranular Neuts Not Reportable 07/06/20 05:24 Smudge Cells Not Reportable 07/06/20 05:24 Toxic Granulation Not Reportable 07/06/20 05:24 Toxic Vacuolation Not Reportable 07/06/20 05:24 Dohle Bodies Not Reportable 07/06/20 05:24 Pelger-Huet Anomaly Not Reportable 07/06/20 05:24 Savanna Rods Not Reportable 07/06/20 05:24 Platelet Estimate Consistent w auto 07/06/20 05:24 Clumped Platelets Not Reportable 07/06/20 05:24 Plt Clumps, EDTA Not Reportable 07/06/20 05:24 Large Platelets Not Reportable 07/06/20 05:24 Giant Platelets Not Reportable 07/06/20 05:24 Platelet Satelliting Not Reportable 07/06/20 05:24 Plt Morphology Comment Not Reportable 07/06/20 05:24 RBC Morphology Not Reportable 07/06/20 05:24 Dimorphic RBCs Not Reportable 07/06/20 05:24 Polychromasia Not Reportable 07/06/20 05:24 Hypochromasia Not Reportable 07/06/20 05:24 Poikilocytosis Not Reportable 07/06/20 05:24 Anisocytosis 1+ 07/06/20 05:24 Microcytosis Not Reportable 07/06/20 05:24 Macrocytosis Not Reportable 07/06/20 05:24 Spherocytes Not Reportable 07/06/20 05:24 Pappenheimer Bodies Not Reportable 07/06/20 05:24 Sickle Cells Not Reportable 07/06/20 05:24 Target Cells Not Reportable 07/06/20 05:24 Tear Drop Cells Not Reportable 07/06/20 05:24 Ovalocytes Not Reportable 07/06/20 05:24 Helmet Cells Not Reportable 07/06/20 05:24 Raza[place] Bodies Not Reportable 07/06/20 05:24 [place] Rings Not Reportable 07/06/20 05:24 [place] Cells Not Reportable 07/06/20 05:24 Bite Cells Not Reportable 07/06/20 05:24 Crenated Cell Not Reportable 07/06/20 05:24 Elliptocytes Not Reportable 07/06/20 05:24 Acanthocytes (Spur) Not Reportable 07/06/20 05:24 Rouleaux Not Reportable 07/06/20 05:24 Hemoglobin C Crystals Not Reportable 07/06/20 05:24 Schistocytes Not Reportable 07/06/20 05:24 Malaria parasites Not Reportable 07/06/20 05:24 Junaid Bodies Not Reportable 07/06/20 05:24 Hem Pathologist Commnt No 07/06/20 05:24 Sodium 139 mmol/L (137-145) 07/06/20 05:24 Potassium 4.3 mmol/L (3.6-5.0) 07/06/20 05:24 Chloride 101.5 mmol/L (98-107) 07/06/20 05:24 Carbon Dioxide 28 mmol/L (22-30) 07/06/20 05:24 Anion Gap 14 mmol/L 07/06/20 05:24 BUN 16 mg/dL (7-17) 07/06/20 05:24 Creatinine 0.8 mg/dL (0.6-1.2) 07/06/20 05:24 Estimated GFR > 60 ml/min 07/06/20 05:24 BUN/Creatinine Ratio 20 % 07/06/20 05:24 Glucose 90 mg/dL (65-100) 07/06/20 05:24 Calcium 9.0 mg/dL (8.4-10.2) 07/06/20 05:24 [place]/IV: Voiding Method Toilet IV Catheter Type [Left Wrist] INT / Saline Lock IV Catheter Type [Left Hand] Peripheral IV Assessment and Plan - Patient Problems (1) Acute asthma exacerbation Current Visit: Yes Status: Acute Plan to address problem: Dexamethasone 6 mg daily Oxygen supplementation as needed Continue montelukast Monitor oxygen saturations closely (2) COVID-19 Current Visit: Yes Status: Acute Plan to address problem: Tested positive for COVID-19 and [facility] Start dexamethasone 6 mg daily. Check inflammatory markers and procalcitonin ID consulted (3) Acute respiratory failure Current Visit: No Status: Acute Qualifiers: Respiratory failure complication: unspecified whether with hypoxia or hype rcapnia Qualified Code(s): J96.00 - Acute respiratory failure, unspecified whether with hypoxia or hypercapnia Plan to address problem: From COVID-19 and asthma exacerbation Continue steroids Continue oxygen supplementation (4) GERD (gastroesophageal reflux disease) Current Visit: No Status: Chronic Qualifiers: Esophagitis presence: without esophagitis Qualified Code(s): K21.9 - Gastro-esophageal reflux disease without esophagitis Plan to address problem: Pantoprazole (5) SLE (systemic lupus erythematosus related syndrome) Current Visit: No Status: Chronic Plan to address problem: Continue home medications-hydroxychloroquine (6) DVT prophylaxis Current Visit: No Status: Acute Plan to address problem: Lovenox 30 mg twice daily (7) Full code status Current Visit: No Status: Acute
[2020-07-06] MEDS ORDERED: dexAMETHasone 4 MG/ML VIAL IV SCH (14:00)
[2020-07-06] MEDS: ASPIRIN 81 MG TAB CHEW PO SCH (14:24)
[2020-07-06] MEDS: ENOXAPARIN 30 MG/0.3 ML INJ SUB-Q SCH ×2 (15:18→22:03)
[2020-07-06 17:45] LABS: C-Reactive Protein 7.3 mg/dL (0.00-1.30)
[2020-07-06] MEDS: MONTELUKAST 10 MG TAB PO SCH (22:03)
[2020-07-07] MEDS: guaiFENesin/CODEINE 100-10MG ORAL LIQD 5 ML PO PRN ×2 (01:24→22:27)
[2020-07-07] MEDS: ACETAMINOPHEN 325 MG TAB PO PRN ×2 (01:24→11:47)
[2020-07-07] MEDS: ALBUTEROL 2.5 MG/3 ML NEBU IH PRN ×2 (01:25→07:22)
[2020-07-07 05:22] LABS: Hematocrit 35.6 % (30.3-42.9); Hemoglobin 11.8 gm/dl (10.1-14.3); Mean Corpuscular HGB Conc 33 % (30-34); Mean Corpuscular Volume 92 fl (79-97); Platelet Count 218 K/mm3 (140-440); Red Blood Count 3.87 M/mm3 (3.65-5.03); Red Cell Distribution Width 14.6 % (13.2-15.2)
[2020-07-07 05:39] LABS: Alanine Aminotransferase 13 units/L (7-56); Albumin 3.4 g/dL (3.9-5); Blood Urea Nitrogen 18 mg/dL (7-17); Calcium 8.5 mg/dL (8.4-10.2); Hemolysis Index 22
[2020-07-07 06:04] LABS: BUN/Creatinine Ratio 26
[2020-07-07 06:22] LABS: Basophils % (Manual) 0 % (0.0-1.8); Eosinophils % (Manual) 0 % (0.0-4.3); Total Cells Counted 100
[2020-07-07 06:23] LABS: Anisocytosis 1+; Macrocytosis 1+; Platelet Estimate Consistent w Auto
[2020-07-07] MEDS ORDERED: methylPREDNISolone Sod Suc 60 MG in SODIUM CHLORIDE 0.9% 100 ML IV SCH (09:12)
[2020-07-07] MEDS ORDERED: VENLAFAXINE 25 MG TAB PO SCH (10:00)
[2020-07-07] MEDS ORDERED: LOPERAMIDE 2 MG CAP PO NR (10:00)
[2020-07-07] MEDS: methylPREDNISolone Sod Succinate 125 MG/2 ML INJ IV SCH ×2 (11:25→17:10)
[2020-07-07] MEDS: ENOXAPARIN 30 MG/0.3 ML INJ SUB-Q SCH ×2 (11:26→22:27)
[2020-07-07] MEDS: HYDROXYCHLOROQUINE 200 MG TAB PO SCH (11:26)
[2020-07-07] MEDS: PANTOPRAZOLE 40 MG TAB PO SCH (11:27)
[2020-07-07] MEDS: VENLAFAXINE 37.5 MG TAB PO SCH (11:27)
[2020-07-07] MEDS: ASPIRIN 81 MG TAB CHEW PO SCH (11:27)
[2020-07-07] MEDS: BENZONATATE 100 MG CAP PO SCH ×3 (11:28→22:27)
--- NOTE | 2020-07-07 13:40 | Progress Note ---
Assessment and Plan Assessment and plan: 50-year-old female with a past medical history of asthma, CHF, hypertension, and lupus complains of generalized body weakness, fever and shortness of breath. Patient states the symptoms started right after she was discharged from [place]. She has associated wheezing, fever, cough and she has been using her inhalers with no significant effect. She also has associated diarrhea. Of note, she was hospitalized here in [facility] on 06/28 for asthma exacerbation and had a negative Covid test during the admission. She was treated and discharged. She presented to [place] for further evaluation after discharge from here and over there, she was found to have positive COVID-19 test and she was placed on steroids and subsequently discharged on Eliquis prophylaxis for DVT. She states that she did not receive remdesivir during the admission. She was discharged from [place] on 07/05. She went home and felt worse. She said that she passed out about 2 times. Due to persistent symptoms, she called EMS who brought her to [facility] for further evaluation. 07/07. Patient seen and examined at bedside this morning. Patient is wheezing and slightly short of breath. Change steroids to Solu-Medrol 60 every 6. Added formoterol and budesonide. ID evaluation pending. Started patient on remdesivir as she is short of breath. (1) Acute asthma exacerbation Current Visit: Yes Status: Acute Plan to address problem: Switch dexamethasone to Solu-Medrol 60 every 6 Oxygen supplementation as needed Continue montelukast Monitor oxygen saturations closely (2) COVID-19 Current Visit: Yes Status: Acute Plan to address problem: Tested positive for COVID-19 in [place] Solumedrol 60q6 Added remdesivir for now. ID to see Procalcitonin <0.05 ID consulted Awaiting ferritin, ldh, d-dimer levels (3) Acute respiratory failure Current Visit: No Status: Acute Qualifiers: Respiratory failure complication: unspecified whether with hypoxia or hypercapnia Qualified Code(s): J96.00 - Acute respiratory failure, unspecified whether with hypoxia or hypercapnia Plan to address problem: From COVID-19 and asthma exacerbation Continue steroids Continue oxygen supplementation (4) GERD (gastroesophageal reflux disease) Current Visit: No Status: Chronic Qualifiers: Esophagitis presence: without esophagitis Qualified Code(s): K21.9 - Gastro-esophageal reflux disease without esophagitis Plan to address problem: Pantoprazole (5) SLE (systemic lupus erythematosus related syndrome) Current Visit: No Status: Chronic Plan to address problem: Continue home medications-hydroxychloroquine (6) DVT prophylaxis Current Visit: No Status: Acute Plan to address problem: Lovenox 30 mg twice daily (7) Full code status Current Visit: No Status: Acute - Patient Problems (1) COVID-19 Current Visit: Yes Status: Acute (2) Acute respiratory failure Current Visit: No Status: Acute Qualifiers: Respiratory failure complication: unspecified whether with hypoxia or hypercapnia Qualified Code(s): J96.00 - Acute respiratory failure, unspecified whether with hypoxia or hypercapnia (3) GERD (gastroesophageal reflux disease) Current Visit: No Status: Chronic Qualifiers: Esophagitis presence: without esophagitis Qualified Code(s): K21.9 - Gastro-esophageal reflux disease without esophagitis (4) SLE (systemic lupus erythematosus related syndrome) Current Visit: No Status: Chronic (5) DVT prophylaxis Current Visit: No Status: Acute (6) Full code status Current Visit: No Status: Acute History Interval history: Patient seen examined at bedside this morning Patient is more short of breath this morning Started patient on Solu-Medrol 60 mg every 6. Discontinue dexamethasone for now ID consult pending-patient may need remdesivir Hospitalist Physical - Physical exam Narrative exam: VITAL SIGNS: Reviewed. GENERAL: Awake and alert on response to questions HEAD: No signs of head trauma. EYES: Pupils are equal. Extraocular motions intact. EARS: Hearing grossly intact. MOUTH: Oropharynx is normal. NECK: No adenopathy, no JVD. CHEST: Diffuse expiratory wheezes CARDIAC: Regular rate and rhythm. S1 and S2, without murmurs, gallops, or rubs. VASCULAR: No Edema. Peripheral pulses normal and equal in all extremities. ABDOMEN: Soft, non tender and non distended. No rebound or guarding, and no masses palpated. Bowel Sounds normal. MUSCULOSKELETAL: Good range of motion of all major joints. Extremities without clubbing, cyanosis or edema. NEUROLOGIC EXAM: Alert and oriented x3. No focal neurologic deficits PSYCHIATRIC: Stable mood SKIN: No obvious lesions - Constitutional Vitals: Temp Pulse Resp BP Pulse Ox 99.6 F 65 20 111/66 96 07/07/20 11:05 07/07/20 07:22 07/07/20 11:05 07/07/20 11:05 07/07/20 06:03 Results - Labs CBC & Chem 7: 07/07/20 04:50 07/08/20 16:13 Labs: Laboratory Last Values WBC 12.7 K/mm3 (4.5-11.0) H 07/07/20 04:50 RBC 3.87 M/mm3 (3.65-5.03) 07/07/20 04:50 Hgb 11.8 gm/dl (10.1-14.3) 07/07/20 04:50 Hct 35.6 % (30.3-42.9) 07/07/20 04:50 MCV 92 fl (79-97) 07/07/20 04:50 MCH 31 pg (28-32) 07/07/20 04:50 MCHC 33 % (30-34) 07/07/20 04:50 RDW 14.6 % (13.2-15.2) 07/07/20 04:50 Plt Count 218 K/mm3 (140-440) 07/07/20 04:50 Add Manual Diff Complete 07/07/20 04:50 Total Counted 100 07/07/20 04:50 Seg Neuts % (Manual) 87.0 % (40.0-70.0) H 07/07/20 04:50 Band Neutrophils % 0 % 07/07/20 04:50 Lymphocytes % (Manual) 9.0 % (13.4-35.0) L 07/07/20 04:50 Reactive Lymphs % (Man) 0 % 07/07/20 04:50 Monocytes % (Manual) 4.0 % (0.0-7.3) 07/07/20 04:50 Eosinophils % (Manual) 0 % (0.0-4.3) 07/07/20 04:50 Basophils % (Manual) 0 % (0.0-1.8) 07/07/20 04:50 Metamyelocytes % 0 % 07/07/20 04:50 Myelocytes % 0 % 07/07/20 04:50 Promyelocytes % 0 % 07/07/20 04:50 Blast Cells % 0 % 07/07/20 04:50 Nucleated RBC % Not Reportable 07/07/20 04:50 Seg Neutrophils # Man 11.0 K/mm3 (1.8-7.7) H 07/07/20 04:50 Band Neutrophils # 0.0 K/mm3 07/07/20 04:50 Lymphocytes # (Manual) 1.1 K/mm3 (1.2-5.4) L 07/07/20 04:50 Abs React Lymphs (Man) 0.0 K/mm3 07/07/20 04:50 Monocytes # (Manual) 0.5 K/mm3 (0.0-0.8) 07/07/20 04:50 Eosinophils # (Manual) 0.0 K/mm3 (0.0-0.4) 07/07/20 04:50 Basophils # (Manual) 0.0 K/mm3 (0.0-0.1) 07/07/20 04:50 Metamyelocytes # 0.0 K/mm3 07/07/20 04:50 Myelocytes # 0.0 K/mm3 07/07/20 04:50 Promyelocytes # 0.0 K/mm3 07/07/20 04:50 Blast Cells # 0.0 K/mm3 07/07/20 04:50 WBC Morphology Not Reportable 07/07/20 04:50 Hypersegmented Neuts Not Reportable 07/07/20 04:50 Hyposegmented Neuts Not Reportable 07/07/20 04:50 Hypogranular Neuts Not Reportable 07/07/20 04:50 Smudge Cells Not Reportable 07/07/20 04:50 Toxic Granulation Not Reportable 07/07/20 04:50 Toxic Vacuolation Not Reportable 07/07/20 04:50 Dohle Bodies Not Reportable 07/07/20 04:50 Pelger-Huet Anomaly Not Reportable 07/07/20 04:50 Savanna Rods Not Reportable 07/07/20 04:50 Platelet Estimate Consistent w auto 07/07/20 04:50 Clumped Platelets Not Reportable 07/07/20 04:50 Plt Clumps, EDTA Not Reportable 07/07/20 04:50 Large Platelets Not Reportable 07/07/20 04:50 Giant Platelets Not Reportable 07/07/20 04:50 Platelet Satelliting Not Reportable 07/07/20 04:50 Plt Morphology Comment Not Reportable 07/07/20 04:50 RBC Morphology Not Reportable 07/07/20 04:50 Dimorphic RBCs Not Reportable 07/07/20 04:50 Polychromasia Not Reportable 07/07/20 04:50 Hypochromasia Not Reportable 07/07/20 04:50 Poikilocytosis Not Reportable 07/07/20 04:50 Anisocytosis 1+ 07/07/20 04:50 Microcytosis Not Reportable 07/07/20 04:50 Macrocytosis 1+ 07/07/20 04:50 Spherocytes Not Reportable 07/07/20 04:50 Pappenheimer Bodies Not Reportable 07/07/20 04:50 Sickle Cells Not Reportable 07/07/20 04:50 Target Cells Not Reportable 07/07/20 04:50 Tear Drop Cells Not Reportable 07/07/20 04:50 Ovalocytes Not Reportable 07/07/20 04:50 Helmet Cells Not Reportable 07/07/20 04:50 [place] Bodies Not Reportable 07/07/20 04:50 Desmet Rings Not Reportable 07/07/20 04:50 [place] Cells Not Reportable 07/07/20 04:50 Bite Cells Not Reportable 07/07/20 04:50 Crenated Cell Not Reportable 07/07/20 04:50 Elliptocytes Not Reportable 07/07/20 04:50 Acanthocytes (Spur) Not Reportable 07/07/20 04:50 Rouleaux Not Reportable 07/07/20 04:50 Hemoglobin C Crystals Not Reportable 07/07/20 04:50 Schistocytes Not Reportable 07/07/20 04:50 Malaria parasites Not Reportable 07/07/20 04:50 Junaid Bodies Not Reportable 07/07/20 04:50 Hem Pathologist Commnt No 07/07/20 04:50 Sodium 141 mmol/L (137-145) 07/07/20 04:50 Potassium 4.1 mmol/L (3.6-5.0) 07/07/20 04:50 Chloride 104.2 mmol/L (98-107) 07/07/20 04:50 Carbon Dioxide 27 mmol/L (22-30) 07/07/20 04:50 Anion Gap 14 mmol/L 07/07/20 04:50 BUN 18 mg/dL (7-17) H 07/07/20 04:50 Creatinine 0.7 mg/dL (0.6-1.2) 07/07/20 04:50 Estimated GFR > 60 ml/min 07/07/20 04:50 BUN/Creatinine Ratio 26 % 07/07/20 04:50 Glucose 138 mg/dL (65-100) H 07/07/20 04:50 Calcium 8.5 mg/dL (8.4-10.2) 07/07/20 04:50 Ferritin 138.9 ng/mL (10.0-200.0) 07/06/20 17:16 Total Bilirubin 0.20 mg/dL (0.1-1.2) 07/07/20 04:50 AST 19 units/L (5-40) 07/07/20 04:50 ALT 13 units/L (7-56) 07/07/20 04:50 Alkaline Phosphatase 55 units/L (35-129) 07/07/20 04:50 Lactate Dehydrogenase 242 units/L (91-180) H 07/06/20 17:16 C-Reactive Protein 7.30 mg/dL (0.00-1.30) H 07/06/20 17:16 Total Protein 5.9 g/dL (6.3-8.2) L 07/07/20 04:50 Albumin 3.4 g/dL (3.9-5) L 07/07/20 04:50 Albumin/Globulin Ratio 1.4 % 07/07/20 04:50 Procalcitonin < 0.05 ng/mL (<0.15) 07/06/20 17:16 [place]/IV: Voiding Method Toilet IV Catheter Type [] INT / Saline Lock IV Catheter Type [Left Wrist] INT / Saline Lock IV Catheter Type [Left Hand] Peripheral IV Active Medications - Current Medications Current Medications: Generic Name Dose Route Start Last Admin Trade Name Freq PRN Reason Stop Dose Admin Acetaminophen 650 mg 07/06/20 13:39 07/07/20 11:47 Tylenol PO 650 mg Q4H PRN Administration Pain MILD(1-3)/Fever >100.5/WILLETT Albuterol 2.5 mg 07/06/20 16:59 07/07/20 07:22 Proventil IH 2.5 mg Q4HRT PRN Administration Shortness Of Breath Alprazolam 0.5 mg 07/07/20 12:28 Xanax PO Q8H PRN Anxiety Arformoterol Tartrate 15 mcg 07/07/20 09:15 Brovana Nebu IH Q12HRT [facility] Aspirin 81 mg 07/06/20 14:00 07/07/20 11:27 Baby Aspirin PO 81 mg QDAY ROMMEL Administration Benzonatate 100 mg 07/07/20 10:00 07/07/20 11:28 Tessalon Perles PO 100 mg Q8HR ROMMEL Administration Budesonide 0.5 mg 07/07/20 09:15 Pulmicort IH Q12HRT [facility] Enoxaparin Sodium 30 mg 07/06/20 15:00 07/07/20 11:26 Enoxaparin SUB-Q 30 mg BID ROMMEL Administration Protocol Hydroxychloroquine Sulfate 200 mg 07/07/20 10:00 07/07/20 11:26 Plaquenil PO 200 mg QDAY ROMMEL Administration Loperamide HCl 4 mg 07/07/20 10:00 07/07/20 11:26 Imodium PO 07/07/20 14:00 4 mg ONCE@1000 NR Administration Methylprednisolone Sodium Succinate 60 mg 07/07/20 10:00 07/07/20 11:25 Solu-Medrol IV 60 mg Q6HR ROMMEL Administration Montelukast Sodium 10 mg 07/06/20 22:00 07/06/20 22:03 Singulair PO 10 mg QHS ROMMEL Administration Ondansetron HCl 4 mg 07/06/20 13:39 Zofran IV Q8H PRN Nausea And Vomiting Pantoprazole Sodium 40 mg 07/07/20 10:00 07/07/20 11:27 Protonix PO 40 mg DAILY ROMMEL Administration Pseudoephedrine/Acetam/Chlorphenir 10 ml 07/07/20 01:17 07/07/20 01:24 Robitussin Ac PO 10 ml Q4H PRN Administration Cough Sodium Chloride 10 ml 07/06/20 14:00 07/07/20 11:28 Sodium Chloride Flush Syringe 10 Ml IV 10 ml BID ROMMEL Administration Sodium Chloride 10 ml 07/06/20 13:39 Sodium Chloride Flush Syringe 10 Ml IV PRN PRN LINE FLUSH Venlafaxine HCl 37.5 mg 07/07/20 10:00 07/07/20 11:27 Effexor PO 37.5 mg DAILY ROMMEL Administration
[2020-07-07] MEDS: BUDESONIDE 0.5 MG/2 ML NEBU IH SCH ×2 (13:42→20:37)
[2020-07-07] MEDS: ARFORMOTEROL 15 MCG/2 ML NEBU IH SCH ×2 (13:42→20:37)
[2020-07-07] MEDS: ALBUTEROL 2.5 MG/3 ML NEBU IH SCH ×3 (13:45→20:37)
[2020-07-07] MEDS ORDERED: REMDESIVIR 200 MG in SODIUM CHLORIDE 0.9% 250ML 250 ML IV ONE (14:15)
--- NOTE | 2020-07-07 14:15 | Consultation ---
History of Present Illness - Reason for Consult Consult date: 07/07/20 COVID Requesting physician: REBEKAH GARNER - History of Present Illness The patient is a 50-year-old female with CHF, asthma, hypertension, lupus was admitted to the hospital with complaints of fever, shortness of breath. Of note, she was seen last week due to an asthma exacerbation when her SARS-CoV-2 PCR and IgG were both negative. She was treated with steroids. She reportedly then went to [place] and tested positive for COVID-19 and was discharged from the hospital on 07/05/2020. She felt worse, passed out twice and hence came to [facility]. She had a fever of 102.4, noted to have wheezing. Labs show mild leukocytosis, procalcitonin 0.05, LDH 242, CRP 7.3. Chest x-ray showed no interval change. Review of Systems: reviewed in the chart, unable to obtain directly due to PPE preservation and minimize risk of transmission Past History Past Medical History: other (Lupus, hypertension, anemia, asthma) Medications and Allergies Allergies Allergy/AdvReac Type Severity Reaction Status Date / Time bee venom protein (honey bee) Allergy Shortness Verified 07/10/18 16:39 of Breath iv contrast Allergy Hives Uncoded 07/10/18 16:36 Home Medications Medication Instructions Recorded Confirmed Last Taken Type ALBUTEROL Inhaler(NF) [VENTOLIN 1 puff IH Q4HR PRN #1 inha 07/10/18 07/06/20 06/27/20 Rx Inhaler(NF)] atenoloL [Tenormin] 50 mg PO DAILY 12/28/18 07/06/20 06/27/20 History Aspirin [Aspirin BABY CHEW TAB] 81 mg PO QDAY #30 tab.chew 12/30/18 07/06/20 06/27/20 Rx Hydroxychloroquine [Plaquenil] 200 mg PO QDAY 30 Days tablet 12/30/18 07/06/20 06/27/20 Rx Pantoprazole [Protonix TAB] 40 mg PO DAILY #30 tablet 05/04/19 07/06/20 10/06/19 Rx Gabapentin [Gralise] 600 mg PO QDAY 10/09/19 07/06/20 06/27/20 History Venlafaxine [Effexor 25mg tab] 37.5 mg PO QDAY 10/09/19 07/06/20 06/27/20 History ALPRAZolam [Xanax TAB] 2 mg PO Q12HR 06/28/20 07/06/20 06/27/20 History Budesonide/Formoterol Fumarate 10.2 gm IH BID 30 Days hfa.aer.ad 07/01/20 07/06/20 Unknown Rx [Symbicort 160-4.5 Mcg Inhaler] Montelukast [Singulair] 10 mg PO QHS 30 Days tablet 07/01/20 07/06/20 Unknown Rx Prednisone [predniSONE 5 mg (6-Day 5 mg PO .TAPER #1 tab.ds.pk 07/01/20 07/06/20 Unknown Rx Pack, 21 Tabs)] levoFLOXacin [Levaquin] 750 mg PO QDAY #3 tablet 07/01/20 07/06/20 Unknown Rx Active Meds: Active Medications Acetaminophen (Tylenol) 650 mg PO Q4H PRN PRN Reason: Pain MILD(1-3)/Fever >100.5/WILLETT Last Admin: 07/07/20 11:47 Dose: 650 mg Documented by: Albuterol (Proventil) 2.5 mg IH Q4HRT [facility] Last Admin: 07/07/20 13:45 Dose: 2.5 mg Documented by: Alprazolam (Xanax) 0.5 mg PO Q8H PRN PRN Reason: Anxiety Arformoterol Tartrate (Brovana Nebu) 15 mcg IH Q12HRT [facility] Last Admin: 07/07/20 13:42 Dose: 15 mcg Documented by: Ascorbic Acid (Vitamin C) 500 mg PO QDAY [facility] Aspirin (Baby Aspirin) 81 mg PO QDAY [facility] Last Admin: 07/07/20 11:27 Dose: 81 mg Documented by: Benzonatate (Tessalon Perles) 100 mg PO Q8HR [facility] Last Admin: 07/07/20 11:28 Dose: 100 mg Documented by: Budesonide (Pulmicort) 0.5 mg IH Q12HRT [facility] Last Admin: 07/07/20 13:42 Dose: 0.5 mg Documented by: Enoxaparin Sodium (Enoxaparin) 30 mg SUB-Q BID [facility]; Protocol Last Admin: 07/07/20 11:26 Dose: 30 mg Documented by: Hydroxychloroquine Sulfate (Plaquenil) 200 mg PO QDAY [facility] Last Admin: 07/07/20 11:26 Dose: 200 mg Documented by: Methylprednisolone Sodium Succinate (Solu-Medrol) 60 mg IV Q6HR [facility] Last Admin: 07/07/20 11:25 Dose: 60 mg Documented by: Montelukast Sodium (Singulair) 10 mg PO QHS [facility] Last Admin: 07/06/20 22:03 Dose: 10 mg Documented by: Ondansetron HCl (Zofran) 4 mg IV Q8H PRN PRN Reason: Nausea And Vomiting Pantoprazole Sodium (Protonix) 40 mg PO DAILY [facility] Last Admin: 07/07/20 11:27 Dose: 40 mg Documented by: Pseudoephedrine/Acetam/Chlorphenir (Robitussin Ac) 10 ml PO Q4H PRN PRN Reason: Cough Last Admin: 07/07/20 01:24 Dose: 10 ml Documented by: Sodium Chloride (Sodium Chloride Flush Syringe 10 Ml) 10 ml IV BID [facility] Last Admin: 07/07/20 11:28 Dose: 10 ml Documented by: Sodium Chloride (Sodium Chloride Flush Syringe 10 Ml) 10 ml IV PRN PRN PRN Reason: LINE FLUSH Venlafaxine HCl (Effexor) 37.5 mg PO DAILY [facility] Last Admin: 07/07/20 11:27 Dose: 37.5 mg Documented by: Zinc Sulfate (Zinc Sulfate) 220 mg PO QDAY [facility] Physical Examination - Physical Exam Narrative exam: Physical Exam (reviewed in chart due to PPE conservation and minimize risk of transmission) Constitutional: limited due to PPE conservation strategy Head, Ears, Nose: limited due to PPE conservation strategy Eyes: limited due to PPE conservation strategy Neck: limited due to PPE conservation strategy Oral: limited due to PPE conservation strategy Cardiovascular: limited due to PPE conservation strategy Respiratory: limited due to PPE conservation strategy GI: limited due to PPE conservation strategy Musculoskeletal: limited due to PPE conservation strategy Skin: limited due to PPE conservation strategy Hem/Lymphatic: limited due to PPE conservation strategy Psych: limited due to PPE conservation strategy Neurological: limited due to PPE conservation strategy - Constitutional Vitals: Vital Signs Temp Pulse Resp BP Pulse Ox 99.6 F 80 16 111/66 96 07/07/20 11:05 07/07/20 13:46 07/07/20 13:46 07/07/20 11:05 07/07/20 06:03 Temperature -Last 24 Hours Temperature 99.6 F Temperature 97.6 F Temperature 97.7 F Temperature 97.5 F Temperature 99.0 F Temperature 98.6 F Results - Labs CBC & Chem 7: 07/07/20 04:50 07/07/20 04:50 Labs: Abnormal lab results 07/06/20 07/07/20 07/07/20 Range/Units 17:16 04:50 04:50 WBC 12.7 H (4.5-11.0) K/mm3 Seg Neuts % (Manual) 87.0 H (40.0-70.0) % Lymphocytes % (Manual) 9.0 L (13.4-35.0) % Seg Neutrophils # Man 11.0 H (1.8-7.7) K/mm3 Lymphocytes # (Manual) 1.1 L (1.2-5.4) K/mm3 BUN 18 H (7-17) mg/dL Glucose 138 H (65-100) mg/dL Lactate Dehydrogenase 242 H (91-180) units/L C-Reactive Protein 7.30 H (0.00-1.30) mg/dL Total Protein 5.9 L (6.3-8.2) g/dL Albumin 3.4 L (3.9-5) g/dL - Imaging and Cardiology Chest x-ray: report reviewed, image reviewed (no obvious infiltrate seen) Assessment and Plan Cultures: Coronavirus PCR: Pending A/P: 50-year-old female with CHF, asthma, hypertension, lupus was admitted to the hospital with complaints of fever, shortness of breath. Of note, she was seen last week due to an asthma exacerbation when her SARS-CoV-2 PCR and IgG were both negative. She was treated with steroids. She reportedly then went to [place] and tested positive for COVID-19 and was discharged from the hospital on 07/05/2020.: #Acute asthma exacerbation: on nebs and steroids. #Acute hypoxic respiratory failure: on 2 lit/min NC. #Recent COVID diagnosis at [facility]: Labs show mild leukocytosis, procalcitonin 0.05, LDH 242, CRP 7.3. Chest x-ray showed no interval change compared to admission last week #Lupus, immunocompromised host: On Plaquenil. Recs: Can start remdesivir since she reportedly did not receive remdesivir at [facility] Ordered SARS-CoV-2 IgG Continue steroids prophylactic anticoagulation based on d-dimer trend ferritin, LDH, d-dimer, CRP every 2-3 days for risk stratification and to assess disease progression Procal is low, no indication for abx at this time Marquez Aponte MD, FACP [facility] O: [phone] F: [phone]
[2020-07-07] MEDS: ALPRAZolam 0.5 MG TAB PO PRN ×2 (14:34→22:27)
[2020-07-07] MEDS: ASCORBIC ACID 500 MG TAB PO SCH (14:34)
[2020-07-07] MEDS ORDERED: SODIUM CHLORIDE 0.9% 50 ML IVPB IV SCH (15:00)
[2020-07-07] MEDS ORDERED: REMDESIVIR 100 MG in SODIUM CHLORIDE 0.9% 250ML 250 ML IV SCH (21:00)
[2020-07-07] MEDS: MONTELUKAST 10 MG TAB PO SCH (22:27)
[2020-07-08] MEDS: methylPREDNISolone Sod Succinate 125 MG/2 ML INJ IV SCH ×6 (00:25→23:14)
[2020-07-08] MEDS: ACETAMINOPHEN 325 MG TAB PO PRN (00:37)
[2020-07-08] MEDS: ALBUTEROL 2.5 MG/3 ML NEBU IH SCH ×7 (00:54→23:47)
[2020-07-08] MEDS: ONDANSETRON 4 MG/2 ML INJ IV PRN ×2 (01:05→10:44)
[2020-07-08] MEDS: BENZONATATE 100 MG CAP PO SCH ×3 (05:57→23:09)
[2020-07-08] MEDS: ARFORMOTEROL 15 MCG/2 ML NEBU IH SCH ×2 (07:46→19:59)
[2020-07-08] MEDS: BUDESONIDE 0.5 MG/2 ML NEBU IH SCH ×2 (07:46→19:59)
[2020-07-08] MEDS: guaiFENesin/CODEINE 100-10MG ORAL LIQD 5 ML PO PRN (08:30)
[2020-07-08] MEDS ORDERED: ROCURONIUM 50 MG/5 ML INJ IV ONE (10:00)
[2020-07-08] MEDS ORDERED: ZINC SULFATE 220 MG CAP PO SCH (10:00)
[2020-07-08] MEDS: ENOXAPARIN 30 MG/0.3 ML INJ SUB-Q SCH ×2 (10:43→23:14)
[2020-07-08] MEDS: ASPIRIN 81 MG TAB CHEW PO SCH (10:43)
[2020-07-08] MEDS: PANTOPRAZOLE 40 MG TAB PO SCH (10:43)
[2020-07-08] MEDS: HYDROXYCHLOROQUINE 200 MG TAB PO SCH (10:43)
[2020-07-08] MEDS: ASCORBIC ACID 500 MG TAB PO SCH ×2 (10:43→23:14)
[2020-07-08] MEDS ORDERED: methylPREDNISolone Sod Succinate 125 MG/2 ML INJ IV STA (10:57)
[2020-07-08 11:48] LABS: ABG Base Excess 1.7 mmol/L (-2.0-3.0); ABG HCO3 25.9 mmol/L (20.0-26.0); ABG Methemoglobin 0.7 % (0.0-1.5); ABG Oxygen Saturation 76.8 % (95.0-99.0); ABG PCO2 39.1 mm Hg; ABG PH 7.438 pH Units (7.350-7.450)
[2020-07-08 11:57] LABS: ABG PO2 39.3 mm Hg (80.0-90.0)
--- NOTE | 2020-07-08 12:10 | Progress Note ---
Assessment and Plan Cultures: Blood cultures 07/07/2020 no growth today SARS COV2- IgG negative A/P: 50-year-old female with CHF, asthma, hypertension, lupus was admitted to the hospital with complaints of fever, shortness of breath. Of note, she was seen last week due to an asthma exacerbation when her SARS-CoV-2 PCR and IgG were both negative. She was treated with steroids. She reportedly then went to [place] and tested positive for COVID-19 and was discharged from the hospital on 07/05/2020.: #Acute asthma exacerbation: on nebs and steroids. #Acute hypoxic respiratory failure: Remains on 2 L #Recent COVID diagnosis at [place]: Labs show mild leukocytosis, procalcitonin 0.05, LDH 242, CRP 7.3. Chest x-ray showed no interval change compared to admission last week #Lupus, immunocompromised host: On Plaquenil. Recs: -SARS-CoV-2 IgG is negative, patient will benefit from COVID-19 plasma -Start remdesivir total 5 days if available -Continue steroids -prophylactic anticoagulation based on d-dimer -trend ferritin, LDH, d-dimer, CRP every 2-3 days for risk stratification and to assess disease progression -Procal is low, no indication for abx at this time Eneida Quiñones MD [facility] ([facility]) Office [phone] Subjective Date of service: 07/08/20 Principal diagnosis: COVID-19 Interval history: Patient remains on 2 L nasal cannula, no fever Objective - Exam Narrative Exam: Physical Exam: reviewed ED and hospitalist notes, limited due to conservation of PPE and decrease risk of transmission. General appearance: limited due to conservation of PPE Eyes: limited due to conservation of PPE HENT: Atraumatic; limited due to conservation of PPE Lungs: limited due to conservation of PPE CV: limited due to conservation of PPE Abdomen: limited due to conservation of PPE Extremities: limited due to conservation of PPE Skin: limited due to conservation of PPE Psych: limited due to conservation of PPE Neuro: limited due to conservation of PPE - Constitutional Vitals: Vital Signs Temp Pulse Resp BP Pulse Ox 97.8 F 99 H 24 118/70 95 07/08/20 05:29 07/08/20 07:45 07/08/20 07:45 07/08/20 05:29 07/08/20 05:29 Temperature -Last 24 Hours Temperature 97.8 F Temperature 99.3 F Temperature 99.3 F - Labs CBC & Chem 7: 07/07/20 04:50 07/07/20 04:50 Labs: Abnormal lab results 07/07/20 07/07/20 07/08/20 Range/Units 14:22 14:22 11:18 ABG pO2 39.3 L* (80.0-90.0) mm Hg ABG O2 Saturation 76.8 L (95.0-99.0) % Oxyhemoglobin 75.3 L (95.0-99.0) % Ferritin 228.2 H (10.0-200.0) ng/mL Lactate Dehydrogenase 277 H (91-180) units/L
--- NOTE | 2020-07-08 12:56 | Event Note ---
Date: 07/08/20 50-year-old female that originally presented with acute respiratory failure secondary to COVID-19 pneumonia had an acute episode of hypoxemia. Patient took oxygen off and attempts to go to the bathroom and subsequently became hypoxemic with sats down into the low 80s. Patient became weak short of breath. After that time patient had persistent coughing and cannot maintain sats until nonrebreather was placed. Patient is transferred to the ICU unit and monitored for respiratory failure possibly requiring intubation.
--- NOTE | 2020-07-08 13:13 | Progress Note ---
Assessment and Plan Assessment and plan: 50-year-old female with a past medical history of asthma, CHF, hypertension, and lupus complains of generalized body weakness, fever and shortness of breath. Patient states the symptoms started right after she was discharged from [place]. She has associated wheezing, fever, cough and she has been using her inhalers with no significant effect. She also has associated diarrhea. Of note, she was hospitalized here in [facility] on 06/28 for asthma exacerbation and had a negative Covid test during the admission. She was treated and discharged. She presented to [place] for further evaluation after discharge from here and over there, she was found to have positive COVID-19 test and she was placed on steroids and subsequently discharged on Eliquis prophylaxis for DVT. She states that she did not receive remdesivir during the admission. She was discharged from [place] on 07/05. She went home and felt worse. She said that she passed out about 2 times. Due to persistent symptoms, she called EMS who brought her to [facility] for further evaluation. 07/07. Patient seen and examined at bedside this morning. Patient is wheezing and slightly short of breath. Change steroids to Solu-Medrol 60 every 6. Added formoterol and budesonide. ID evaluation pending. Started patient on remdesivir as she is short of breath. 07/07. Placed on BIPAP this AM. Will need pulm evaluation. Solumedrol 60mg q6. STAT blood gas ordered. She will be transferred to [facility]. (1) Acute asthma exacerbation Current Visit: Yes Status: Acute Plan to address problem: Solumedrol 60mg q 6 Oxygen supplementation as needed Continue montelukast Monitor oxygen saturations closely (2) COVID-19 Current Visit: Yes Status: Acute Plan to address problem: Tested positive for COVID-19 in [place] Solumedrol 60q6 Remdesivir Procalcitonin <0.05 ID on board Awaiting ferritin, ldh, d-dimer levels (3) Acute respiratory failure Current Visit: No Status: Acute Qualifiers: Respiratory failure complication: unspecified whether with hypoxia or hypercapnia Qualified Code(s): J96.00 - Acute respiratory failure, unspecified whether with hypoxia or hypercapnia Plan to address problem: From COVID-19 and asthma exacerbation Continue steroids Continue oxygen supplementation (4) GERD (gastroesophageal reflux disease) Current Visit: No Status: Chronic Qualifiers: Esophagitis presence: without esophagitis Qualified Code(s): K21.9 - Gastro-esophageal reflux disease without esophagitis Plan to address problem: Pantoprazole (5) SLE (systemic lupus erythematosus related syndrome) Current Visit: No Status: Chronic Plan to address problem: Continue home medications-hydroxychloroquine (6) DVT prophylaxis Current Visit: No Status: Acute Plan to address problem: Lovenox 30 mg twice daily (7) Full code status Current Visit: No Status: Acute - Patient Problems (1) COVID-19 Current Visit: Yes Status: Acute (2) Acute respiratory failure Current Visit: No Status: Acute Qualifiers: Respiratory failure complication: unspecified whether with hypoxia or hypercapnia Qualified Code(s): J96.00 - Acute respiratory failure, unspecified whether with hypoxia or hypercapnia (3) GERD (gastroesophageal reflux disease) Current Visit: No Status: Chronic Qualifiers: Esophagitis presence: without esophagitis Qualified Code(s): K21.9 - Gastro-esophageal reflux disease without esophagitis (4) SLE (systemic lupus erythematosus related syndrome) Current Visit: No Status: Chronic (5) DVT prophylaxis Current Visit: No Status: Acute (6) Full code status Current Visit: No Status: Acute History Interval history: Patient seen examined at bedside this morning Started on solumedrol 60mg q6 She has been placed on BIPAP this morning Ordered another solumedrol 125mg once STAT ABG ordered. Will need pulmonology evaluation. Will be going to step down Hospitalist Physical - Physical exam Narrative exam: VITAL SIGNS: Reviewed. GENERAL: Awake and alert on response to questions HEAD: No signs of head trauma. EYES: Pupils are equal. Extraocular motions intact. EARS: Hearing grossly intact. MOUTH: Oropharynx is normal. NECK: No adenopathy, no JVD. CHEST: Diffuse expiratory wheezes CARDIAC: Regular rate and rhythm. S1 and S2, without murmurs, gallops, or rubs. VASCULAR: No Edema. Peripheral pulses normal and equal in all extremities. ABDOMEN: Soft, non tender and non distended. No rebound or guarding, and no masses palpated. Bowel Sounds normal. MUSCULOSKELETAL: Good range of motion of all major joints. Extremities without clubbing, cyanosis or edema. NEUROLOGIC EXAM: Alert and oriented x3. No focal neurologic deficits PSYCHIATRIC: Stable mood SKIN: No obvious lesions - Constitutional Vitals: Temp Pulse Resp BP Pulse Ox 97.8 F 99 H 24 118/70 95 07/08/20 05:29 07/08/20 07:45 07/08/20 07:45 07/08/20 05:29 07/08/20 05:29 Results - Labs CBC & Chem 7: 07/07/20 04:50 07/07/20 04:50 Labs: Laboratory Last Values WBC 12.7 K/mm3 (4.5-11.0) H 07/07/20 04:50 RBC 3.87 M/mm3 (3.65-5.03) 07/07/20 04:50 Hgb 11.8 gm/dl (10.1-14.3) 07/07/20 04:50 Hct 35.6 % (30.3-42.9) 07/07/20 04:50 MCV 92 fl (79-97) 07/07/20 04:50 MCH 31 pg (28-32) 07/07/20 04:50 MCHC 33 % (30-34) 07/07/20 04:50 RDW 14.6 % (13.2-15.2) 07/07/20 04:50 Plt Count 218 K/mm3 (140-440) 07/07/20 04:50 Add Manual Diff Complete 07/07/20 04:50 Total Counted 100 07/07/20 04:50 Seg Neuts % (Manual) 87.0 % (40.0-70.0) H 07/07/20 04:50 Band Neutrophils % 0 % 07/07/20 04:50 Lymphocytes % (Manual) 9.0 % (13.4-35.0) L 07/07/20 04:50 Reactive Lymphs % (Man) 0 % 07/07/20 04:50 Monocytes % (Manual) 4.0 % (0.0-7.3) 07/07/20 04:50 Eosinophils % (Manual) 0 % (0.0-4.3) 07/07/20 04:50 Basophils % (Manual) 0 % (0.0-1.8) 07/07/20 04:50 Metamyelocytes % 0 % 07/07/20 04:50 Myelocytes % 0 % 07/07/20 04:50 Promyelocytes % 0 % 07/07/20 04:50 Blast Cells % 0 % 07/07/20 04:50 Nucleated RBC % Not Reportable 07/07/20 04:50 Seg Neutrophils # Man 11.0 K/mm3 (1.8-7.7) H 07/07/20 04:50 Band Neutrophils # 0.0 K/mm3 07/07/20 04:50 Lymphocytes # (Manual) 1.1 K/mm3 (1.2-5.4) L 07/07/20 04:50 Abs React Lymphs (Man) 0.0 K/mm3 07/07/20 04:50 Monocytes # (Manual) 0.5 K/mm3 (0.0-0.8) 07/07/20 04:50 Eosinophils # (Manual) 0.0 K/mm3 (0.0-0.4) 07/07/20 04:50 Basophils # (Manual) 0.0 K/mm3 (0.0-0.1) 07/07/20 04:50 Metamyelocytes # 0.0 K/mm3 07/07/20 04:50 Myelocytes # 0.0 K/mm3 07/07/20 04:50 Promyelocytes # 0.0 K/mm3 07/07/20 04:50 Blast Cells # 0.0 K/mm3 07/07/20 04:50 WBC Morphology Not Reportable 07/07/20 04:50 Hypersegmented Neuts Not Reportable 07/07/20 04:50 Hyposegmented Neuts Not Reportable 07/07/20 04:50 Hypogranular Neuts Not Reportable 07/07/20 04:50 Smudge Cells Not Reportable 07/07/20 04:50 Toxic Granulation Not Reportable 07/07/20 04:50 Toxic Vacuolation Not Reportable 07/07/20 04:50 Dohle Bodies Not Reportable 07/07/20 04:50 Pelger-Huet Anomaly Not Reportable 07/07/20 04:50 Savanna Rods Not Reportable 07/07/20 04:50 Platelet Estimate Consistent w auto 07/07/20 04:50 Clumped Platelets Not Reportable 07/07/20 04:50 Plt Clumps, EDTA Not Reportable 07/07/20 04:50 Large Platelets Not Reportable 07/07/20 04:50 Giant Platelets Not Reportable 07/07/20 04:50 Platelet Satelliting Not Reportable 07/07/20 04:50 Plt Morphology Comment Not Reportable 07/07/20 04:50 RBC Morphology Not Reportable 07/07/20 04:50 Dimorphic RBCs Not Reportable 07/07/20 04:50 Polychromasia Not Reportable 07/07/20 04:50 Hypochromasia Not Reportable 07/07/20 04:50 Poikilocytosis Not Reportable 07/07/20 04:50 Anisocytosis 1+ 07/07/20 04:50 Microcytosis Not Reportable 07/07/20 04:50 Macrocytosis 1+ 07/07/20 04:50 Spherocytes Not Reportable 07/07/20 04:50 Pappenheimer Bodies Not Reportable 07/07/20 04:50 Sickle Cells Not Reportable 07/07/20 04:50 Target Cells Not Reportable 07/07/20 04:50 Tear Drop Cells Not Reportable 07/07/20 04:50 Ovalocytes Not Reportable 07/07/20 04:50 Helmet Cells Not Reportable 07/07/20 04:50 Raza[place] Bodies Not Reportable 07/07/20 04:50 [place] Rings Not Reportable 07/07/20 04:50 Kristan Cells Not Reportable 07/07/20 04:50 Bite Cells Not Reportable 07/07/20 04:50 Crenated Cell Not Reportable 07/07/20 04:50 Elliptocytes Not Reportable 07/07/20 04:50 Acanthocytes (Spur) Not Reportable 07/07/20 04:50 Rouleaux Not Reportable 07/07/20 04:50 Hemoglobin C Crystals Not Reportable 07/07/20 04:50 Schistocytes Not Reportable 07/07/20 04:50 Malaria parasites Not Reportable 07/07/20 04:50 Junaid Bodies Not Reportable 07/07/20 04:50 Hem Pathologist Commnt No 07/07/20 04:50 D-Dimer < 135.00 ng/mlDDU (0-234) 07/07/20 14:22 ABG pH 7.438 pH Units (7.350-7.450) 07/08/20 11:18 ABG pCO2 39.1 mm Hg 07/08/20 11:18 ABG pO2 39.3 mm Hg (80.0-90.0) L* 07/08/20 11:18 ABG HCO3 25.9 mmol/L (20.0-26.0) 07/08/20 11:18 ABG O2 Saturation 76.8 % (95.0-99.0) L 07/08/20 11:18 ABG O2 Content 12.8 (0.0-44) 07/08/20 11:18 ABG Base Excess 1.7 mmol/L (-2.0-3.0) 07/08/20 11:18 ABG Hemoglobin 12.1 gm/dl (12.0-16.0) 07/08/20 11:18 ABG Carboxyhemoglobin 1.3 % (0.0-5.0) 07/08/20 11:18 ABG Methemoglobin 0.7 % (0.0-1.5) 07/08/20 11:18 Oxyhemoglobin 75.3 % (95.0-99.0) L 07/08/20 11:18 FiO2 21 % 07/08/20 11:18 Sodium 141 mmol/L (137-145) 07/07/20 04:50 Potassium 4.1 mmol/L (3.6-5.0) 07/07/20 04:50 Chloride 104.2 mmol/L (98-107) 07/07/20 04:50 Carbon Dioxide 27 mmol/L (22-30) 07/07/20 04:50 Anion Gap 14 mmol/L 07/07/20 04:50 BUN 18 mg/dL (7-17) H 07/07/20 04:50 Creatinine 0.7 mg/dL (0.6-1.2) 07/07/20 04:50 Estimated GFR > 60 ml/min 07/07/20 04:50 BUN/Creatinine Ratio 26 % 07/07/20 04:50 Glucose 138 mg/dL (65-100) H 07/07/20 04:50 Calcium 8.5 mg/dL (8.4-10.2) 07/07/20 04:50 Ferritin 228.2 ng/mL (10.0-200.0) H 07/07/20 14:22 Total Bilirubin 0.20 mg/dL (0.1-1.2) 07/07/20 04:50 AST 19 units/L (5-40) 07/07/20 04:50 ALT 13 units/L (7-56) 07/07/20 04:50 Alkaline Phosphatase 55 units/L (35-129) 07/07/20 04:50 Lactate Dehydrogenase 277 units/L (91-180) H 07/07/20 14:22 C-Reactive Protein 7.30 mg/dL (0.00-1.30) H 07/06/20 17:16 Total Protein 5.9 g/dL (6.3-8.2) L 07/07/20 04:50 Albumin 3.4 g/dL (3.9-5) L 07/07/20 04:50 Albumin/Globulin Ratio 1.4 % 07/07/20 04:50 Procalcitonin < 0.05 ng/mL (<0.15) 07/06/20 17:16 SARS-CoV-2 IgG Ab Nonreactive (NonReactive) 07/07/20 14:22 Microbiology: Microbiology 07/07/20 14:22 Peripheral/Venous Blood Culture - Preliminary Culture in Progress 07/07/20 14:22 Peripheral/Venous Blood Culture - Preliminary Culture in Progress [place]/IV: Voiding Method Toilet IV Catheter Type [Right INT / Saline Lock Forearm] IV Catheter Type [Left Wrist] INT / Saline Lock IV Catheter Type [Left Hand] Peripheral IV Active Medications - Current Medications Current Medications: Generic Name Dose Route Start Last Admin Trade Name Freq PRN Reason Stop Dose Admin Acetaminophen 650 mg 07/06/20 13:39 07/08/20 00:37 Tylenol PO 650 mg Q4H PRN Administration Pain MILD(1-3)/Fever >100.5/WILLETT Albuterol 2.5 mg 07/07/20 13:45 07/08/20 07:46 Proventil IH 2.5 mg Q4HRT ROMMEL Administration Alprazolam 0.5 mg 07/07/20 12:28 07/07/20 22:27 Xanax PO 0.5 mg Q8H PRN Administration Anxiety Arformoterol Tartrate 15 mcg 07/07/20 09:15 07/08/20 07:46 Brovana Nebu IH 15 mcg Q12HRT ROMMEL Administration Ascorbic Acid 500 mg 07/07/20 14:00 07/08/20 10:43 Vitamin C PO 500 mg QDAY ROMMEL Administration Aspirin 81 mg 07/06/20 14:00 07/08/20 10:43 Baby Aspirin PO 81 mg QDAY ROMMEL Administration Benzonatate 100 mg 07/07/20 10:00 07/08/20 05:57 Tessalon Perles PO 100 mg Q8HR ROMMEL Administration Budesonide 0.5 mg 07/07/20 09:15 07/08/20 07:46 Pulmicort IH 0.5 mg Q12HRT ROMMEL Administration Enoxaparin Sodium 30 mg 07/06/20 15:00 07/08/20 10:43 Enoxaparin SUB-Q 30 mg BID ROMMEL Administration Protocol Hydroxychloroquine Sulfate 200 mg 07/07/20 10:00 07/08/20 10:43 Plaquenil PO 200 mg QDAY ROMMEL Administration Methylprednisolone Sodium Succinate 60 mg 07/07/20 10:00 07/08/20 05:57 Solu-Medrol IV 60 mg Q6HR ROMMEL Administration Montelukast Sodium 10 mg 07/06/20 22:00 07/07/20 22:27 Singulair PO 10 mg QHS ROMMEL Administration Ondansetron HCl 4 mg 07/06/20 13:39 07/08/20 10:44 Zofran IV 4 mg Q8H PRN Administration Nausea And Vomiting Pantoprazole Sodium 40 mg 07/07/20 10:00 07/08/20 10:43 Protonix PO 40 mg DAILY ROMMEL Administration Pseudoephedrine/Acetam/Chlorphenir 10 ml 07/07/20 01:17 07/08/20 08:30 Robitussin Ac PO 10 ml Q4H PRN Administration Cough Sodium Chloride 10 ml 07/06/20 14:00 07/07/20 22:27 Sodium Chloride Flush Syringe 10 Ml IV 10 ml BID ROMMEL Administration Sodium Chloride 10 ml 07/06/20 13:39 Sodium Chloride Flush Syringe 10 Ml IV PRN PRN LINE FLUSH Venlafaxine HCl 37.5 mg 07/07/20 10:00 07/07/20 11:27 Effexor PO 37.5 mg DAILY ROMMEL Administration Zinc Sulfate 220 mg 07/08/20 10:00 07/08/20 10:43 Zinc Sulfate PO 220 mg QDAY ROMMEL Administration
[2020-07-08] MEDS ORDERED: SODIUM CHLORIDE 0.9% 1000 ML 1,000 ML IV ONE (13:16)
[2020-07-08] MEDS ORDERED: MINERAL OIL/PETROLATUM, WHITE OPHTH OINT 3.5 GM OU PRN (13:16)
[2020-07-08] MEDS ORDERED: LIP THERAPY VASELINE TP PRN (13:16)
--- NOTE | 2020-07-08 13:37 | Consultation ---
History of Present Illness Consult date: 07/08/20 Requesting physician: REBEKAH GARNER Reason for consult: other (Acute Hypoxemic Respiratory Failure; COVID-19 infection; SLE) History of present illness: PULMONARY/CCM CONSULT NOTE (Full dictation # [id number]) Please see dictated notes for full details Past History Past Medical History: other (Lupus, hypertension, anemia, asthma) Medications and Allergies Allergies Allergy/AdvReac Type Severity Reaction Status Date / Time bee venom protein (honey bee) Allergy Shortness Verified 07/10/18 16:39 of Breath iv contrast Allergy Hives Uncoded 07/10/18 16:36 Home Medications Medication Instructions Recorded Confirmed Last Taken Type ALBUTEROL Inhaler(NF) [VENTOLIN 1 puff IH Q4HR PRN #1 inha 07/10/18 07/06/20 06/27/20 Rx Inhaler(NF)] atenoloL [Tenormin] 50 mg PO DAILY 12/28/18 07/06/20 06/27/20 History Aspirin [Aspirin BABY CHEW TAB] 81 mg PO QDAY #30 tab.chew 12/30/18 07/06/20 06/27/20 Rx Hydroxychloroquine [Plaquenil] 200 mg PO QDAY 30 Days tablet 12/30/18 07/06/20 06/27/20 Rx Pantoprazole [Protonix TAB] 40 mg PO DAILY #30 tablet 05/04/19 07/06/20 10/06/19 Rx Gabapentin [Gralise] 600 mg PO QDAY 10/09/19 07/06/20 06/27/20 History Venlafaxine [Effexor 25mg tab] 37.5 mg PO QDAY 10/09/19 07/06/20 06/27/20 History ALPRAZolam [Xanax TAB] 2 mg PO Q12HR 06/28/20 07/06/20 06/27/20 History Budesonide/Formoterol Fumarate 10.2 gm IH BID 30 Days hfa.aer.ad 07/01/20 07/06/20 Unknown Rx [Symbicort 160-4.5 Mcg Inhaler] Montelukast [Singulair] 10 mg PO QHS 30 Days tablet 07/01/20 07/06/20 Unknown Rx Prednisone [predniSONE 5 mg (6-Day 5 mg PO .TAPER #1 tab.ds.pk 07/01/20 07/06/20 Unknown Rx Pack, 21 Tabs)] levoFLOXacin [Levaquin] 750 mg PO QDAY #3 tablet 07/01/20 07/06/20 Unknown Rx Active Meds: Active Medications Acetaminophen (Tylenol) 650 mg PO Q4H PRN PRN Reason: Pain MILD(1-3)/Fever >100.5/WILLETT Last Admin: 07/08/20 00:37 Dose: 650 mg Documented by: Albuterol (Proventil) 2.5 mg IH Q4HRT [facility] Last Admin: 07/08/20 07:46 Dose: 2.5 mg Documented by: Alprazolam (Xanax) 0.5 mg PO Q8H PRN PRN Reason: Anxiety Last Admin: 07/07/20 22:27 Dose: 0.5 mg Documented by: Arformoterol Tartrate (Brovana Nebu) 15 mcg IH Q12HRT [facility] Last Admin: 07/08/20 07:46 Dose: 15 mcg Documented by: Ascorbic Acid (Vitamin C) 500 mg PO QDAY [facility] Last Admin: 07/08/20 10:43 Dose: 500 mg Documented by: Aspirin (Baby Aspirin) 81 mg PO QDAY [facility] Last Admin: 07/08/20 10:43 Dose: 81 mg Documented by: Benzonatate (Tessalon Perles) 100 mg PO Q8HR [facility] Last Admin: 07/08/20 05:57 Dose: 100 mg Documented by: Budesonide (Pulmicort) 0.5 mg IH Q12HRT [facility] Last Admin: 07/08/20 07:46 Dose: 0.5 mg Documented by: Enoxaparin Sodium (Enoxaparin) 30 mg SUB-Q BID [facility]; Protocol Last Admin: 07/08/20 10:43 Dose: 30 mg Documented by: Fentanyl (Sublimaze) 50 mcg IV Q10MIN PRN PRN Reason: ANALGESIA Hydrophilic Ointment (Vaseline Lip Therapy) 1 applic TP Q2HR PRN PRN Reason: Dry Lips Hydroxychloroquine Sulfate (Plaquenil) 200 mg PO QDAY [facility] Last Admin: 07/08/20 10:43 Dose: 200 mg Documented by: Sodium Chloride (Nacl 0.9% 1000 Ml) 1,000 mls @ 999 mls/hr IV BOLUS ONE Stop: 07/08/20 14:16 Fentanyl Citrate (Fentanyl Drip Premix) 2,000 mcg in 100 mls @ 4.825 mls/hr IV TITR [facility]; Protocol Propofol (Diprivan 10 Mg/Ml) 1,000 mg in 100 mls @ 2.895 mls/hr IV TITR [facility]; Protocol Methylprednisolone Sodium Succinate (Solu-Medrol) 60 mg IV Q6HR [facility] Last Admin: 07/08/20 05:57 Dose: 60 mg Documented by: Montelukast Sodium (Singulair) 10 mg PO QHS [facility] Last Admin: 07/07/20 22:27 Dose: 10 mg Documented by: Multi-Ingred Cream/Lotion/Oil/Oint (Artificial Tears Ophth Oint) 1 applic OU Q4HR PRN PRN Reason: Dry Eye(s) Ondansetron HCl (Zofran) 4 mg IV Q8H PRN PRN Reason: Nausea And Vomiting Last Admin: 07/08/20 10:44 Dose: 4 mg Documented by: Pantoprazole Sodium (Protonix) 40 mg PO DAILY [facility] Last Admin: 07/08/20 10:43 Dose: 40 mg Documented by: Propofol (Diprivan 10 Mg/Ml) 20 mg IV ONCE ONE Stop: 07/08/20 14:01 Pseudoephedrine/Acetam/Chlorphenir (Robitussin Ac) 10 ml PO Q4H PRN PRN Reason: Cough Last Admin: 07/08/20 08:30 Dose: 10 ml Documented by: Sodium Chloride (Sodium Chloride Flush Syringe 10 Ml) 10 ml IV BID [facility] Last Admin: 07/07/20 22:27 Dose: 10 ml Documented by: Sodium Chloride (Sodium Chloride Flush Syringe 10 Ml) 10 ml IV PRN PRN PRN Reason: LINE FLUSH Venlafaxine HCl (Effexor) 37.5 mg PO DAILY [facility] Last Admin: 07/07/20 11:27 Dose: 37.5 mg Documented by: Zinc Sulfate (Zinc Sulfate) 220 mg PO QDAY [facility] Last Admin: 07/08/20 10:43 Dose: 220 mg Documented by: Physical Examination Vital signs: Vital Signs Temp 101.7 F H 07/06/20 04:27 Results - Laboratory Findings CBC and BMP: 07/07/20 04:50 07/07/20 04:50 ABG ABG pH 7.438 pH Units (7.350-7.450) 07/08/20 11:18 ABG pCO2 39.1 mm Hg 07/08/20 11:18 ABG pO2 39.3 mm Hg (80.0-90.0) L* 07/08/20 11:18 ABG O2 Saturation 76.8 % (95.0-99.0) L 07/08/20 11:18 PT/INR, D-dimer D-Dimer < 135.00 ng/mlDDU (0-234) 07/07/20 14:22 Abnormal lab findings: Abnormal Labs 07/06/20 07/06/20 07/07/20 05:24 17:16 04:50 WBC 13.5 H 12.7 H Seg Neuts % (Manual) 86.0 H 87.0 H Lymphocytes % (Manual) 6.0 L 9.0 L Seg Neutrophils # Man 11.6 H 11.0 H Lymphocytes # (Manual) 0.8 L 1.1 L ABG pO2 ABG O2 Saturation Oxyhemoglobin BUN Glucose Ferritin Lactate Dehydrogenase 242 H C-Reactive Protein 7.30 H Total Protein Albumin 07/07/20 07/07/20 07/07/20 04:50 14:22 14:22 WBC Seg Neuts % (Manual) Lymphocytes % (Manual) Seg Neutrophils # Man Lymphocytes # (Manual) ABG pO2 ABG O2 Saturation Oxyhemoglobin BUN 18 H Glucose 138 H Ferritin 228.2 H Lactate Dehydrogenase 277 H C-Reactive Protein Total Protein 5.9 L Albumin 3.4 L 07/08/20 11:18 WBC Seg Neuts % (Manual) Lymphocytes % (Manual) Seg Neutrophils # Man Lymphocytes # (Manual) ABG pO2 39.3 L* ABG O2 Saturation 76.8 L Oxyhemoglobin 75.3 L BUN Glucose Ferritin Lactate Dehydrogenase C-Reactive Protein Total Protein Albumin
[2020-07-08] MEDS: fentaNYL DRIP Premix 2,000 MCG/100 ML BAG IV SCH ×2 (13:45→20:42)
[2020-07-08] MEDS ORDERED: propofoL 200 MG/20 ML VIAL IV ONE (14:00)
--- NOTE | 2020-07-08 14:25 | Progress Note ---
Assessment and Plan Cultures: Blood cultures 07/07/2020 no growth today SARS COV2- IgG negative A/P: 50-year-old female with CHF, asthma, hypertension, lupus was admitted to the hospital with complaints of fever, shortness of breath. Of note, she was seen last week due to an asthma exacerbation when her SARS-CoV-2 PCR and IgG were both negative. She was treated with steroids. She reportedly then went to [place] and tested positive for COVID-19 and was discharged from the hospital on 07/05/2020.: #Acute asthma exacerbation: on nebs and steroids. #Acute hypoxic respiratory failure: Remains on 2 L #Recent COVID diagnosis at [place]: Labs show mild leukocytosis, procalcitonin 0.05, LDH 242, CRP 7.3. Chest x-ray showed no interval change compared to admission last week #Lupus, immunocompromised host: On Plaquenil. Recs: -SARS-CoV-2 IgG is negative, patient will benefit from COVID-19 plasma -Start remdesivir total 5 days if available -Continue steroids -prophylactic anticoagulation based on d-dimer -trend ferritin, LDH, d-dimer, CRP every 2-3 days for risk stratification and to assess disease progression -Procal is low, no indication for abx at this time Eneida Quiñones MD [facility] ([facility]) Office [phone] Subjective Principal diagnosis: COVID-19 Objective - Constitutional Vitals: Vital Signs Temp Pulse Resp BP Pulse Ox 97.8 F 99 H 24 118/70 95 07/08/20 05:29 07/08/20 07:45 07/08/20 07:45 07/08/20 05:29 07/08/20 05:29 Temperature -Last 24 Hours Temperature 97.8 F Temperature 99.3 F Temperature 99.3 F - Labs CBC & Chem 7: 07/07/20 04:50 07/07/20 04:50 Labs: Abnormal lab results 07/07/20 07/07/20 07/08/20 Range/Units 14:22 14:22 11:18 ABG pO2 39.3 L* (80.0-90.0) mm Hg ABG O2 Saturation 76.8 L (95.0-99.0) % Oxyhemoglobin 75.3 L (95.0-99.0) % POC Glucose (70-105) mg/dL Ferritin 228.2 H (10.0-200.0) ng/mL Lactate Dehydrogenase 277 H (91-180) units/L 07/08/20 Range/Units 12:57 ABG pO2 (80.0-90.0) mm Hg ABG O2 Saturation (95.0-99.0) % Oxyhemoglobin (95.0-99.0) % POC Glucose 106 H (70-105) mg/dL Ferritin (10.0-200.0) ng/mL Lactate Dehydrogenase (91-180) units/L
[2020-07-08] MEDS: VENLAFAXINE 37.5 MG TAB PO SCH (14:46)
[2020-07-08] MEDS ORDERED: SIMPLE SYRUP 15 ML FEEDTUBE PRN ×2 (14:50)
[2020-07-08] MEDS ORDERED: SODIUM BICARBONATE 325 MG TAB FEEDTUBE PRN (14:50)
[2020-07-08] MEDS ORDERED: LIPASE 10,500/PROTEASE 25,000/AMYLASE 43,750 (UNITS) DR CAP FEEDTUBE PRN (14:50)
--- NOTE | 2020-07-08 14:57 | XRay Report ---
ABDOMEN SUPINE INDICATION / CLINICAL INFORMATION: Tube Placement. COMPARISON: None available. FINDINGS: Nasogastric tube is projected over the distal stomach. Signer Name: Jayson Cabezas MD Signed: 07/08/2020 2:53 PM Workstation Name: [id number]
[2020-07-08] MEDS ORDERED: REMDESIVIR 200 MG in SODIUM CHLORIDE 0.9% 250ML 250 ML IV ONE (15:00)
--- NOTE | 2020-07-08 15:00 | XRay Report ---
CHEST 1 VIEW INDICATION: ETT placement COMPARISON: 07/06/2020 FINDINGS: Support devices: Endotracheal tube has been placed, with its tip approximately 3 cm above the hali, in optimal position. Heart: Normal and unchanged Lungs/Pleura: There has now developed parenchymal disease throughout the entire left lung and in the right upper lobe. No significant pleural fluid. No pneumothorax. IMPRESSION: 1. Interval development of bilateral lung disease, worse on the left. Signer Name: Jayson Cabezas MD Signed: 07/08/2020 2:55 PM Workstation Name: [id number]
[2020-07-08] MEDS ORDERED: SODIUM CHLORIDE 0.9% 1000 ML 1,000 ML IV SCH (16:15)
[2020-07-08 16:47] LABS: BUN/Creatinine Ratio 19; Blood Urea Nitrogen 15 mg/dL (7-17); Hemolysis Index 45
[2020-07-08] MEDS: SODIUM CHLORIDE 0.9% 50 ML IVPB IV SCH (16:52)
[2020-07-08] MEDS ORDERED: NORepinephrine/NS 4 MG-250 ML 4 MG/250 ML BAG IV SCH (17:00)
[2020-07-08] MEDS ORDERED: DOPamine/D5W 800 MG/250 ML 800 MG/250 ML BAG IV SCH (17:00)
--- NOTE | 2020-07-08 17:49 | Consultation ---
PULMONARY CRITICAL CARE CONSULT NOTE CONSULTING PHYSICIAN: Dr. Mccarthy. REASON FOR CONSULTATION: Acute hypoxemic respiratory failure, COVID-19 infection. CHIEF COMPLAINT AND HISTORY OF PRESENT ILLNESS: The patient is now 50-year-old female with past medical history significant amongst other things for a diagnosis of lupus as well as asthma, but also a history that she was at [facility] and was found to have a positive COVID test that was according to the records on 07/01. At that time, she was admitted there for an asthma exacerbation and near syncope. She was discharged on 07/05, went home, got worse and then came back to our Emergency Room complaining of shortness of breath, dyspnea on exertion. She began wheezing while at home. It seems like she was developing an asthma attack. She did have some fevers, generalized body pain. She had significant dyspnea on exertion. She was evaluated in the Emergency Room, ultimately was admitted as an acute asthma exacerbation and placed on the medical floor. She decompensated while on the medical floor today and required transfer to the intensive care unit. When I stopped by to see her, she was on 100% nonrebreather mask, O2 sats were in the 80s. She was asking to please be intubated. She felt like she could not get air into her chest. She had some mild pleuritic chest pain. Denied any gross or streaky hemoptysis. Denied any new onset leg pain or swelling either unilaterally or bilaterally or any suggestion of deep venous thrombosis. With regards to tobacco use/abuse history, she does have a 10+ pack year tobacco smoking and described as an everyday smoker. She really is much of history of presentation as I have. PAST MEDICAL HISTORY: Again asthma, hypertension, congestive heart failure, systemic lupus erythematosus. She is obese. PAST SURGICAL HISTORY: She has had tubal ligations in the past and endometrial ablation. MEDICATIONS: She was on at the time I stopped by to see her were reviewed, pertinent medications include the following: Tylenol 650 mg p.o. q. 4 hours p.r.n. mild pain or fevers, albuterol nebulizer treatments scheduled q.4 hours, Xanax 0.5 mg p.o. q. 8 hours p.r.n. anxiety, Brovana 15 mcg nebulized q.12 hours, vitamin C 500 mg p.o. daily, aspirin 81 mg p.o. daily, Tessalon Perles 100 mg p.o. q. 8 hours, Pulmicort 0.5 mg nebulized q. 12 hours, Lovenox 30 mg subcutaneous b.i.d., Solu-Medrol 60 mg IV q. 6 hours scheduled, Singulair 10 mg p.o. at bedtime, Zofran 4 mg IV q. 8 hours p.r.n. nausea and vomiting, Protonix 40 mg IV daily, Robitussin-AC 10 mL p.o. q. 4 hours p.r.n. cough. She has been started on remdesivir and she is on day #2 of remdesivir therapy. She is on Effexor 37.5 mg p.o. daily and zinc sulfate 220 mg p.o. daily. ALLERGIES: HONEY BEE, IV CONTRAST. Nature of this allergy is unclear. DIET: Obese lady. Denies acute weight loss or gain in the preceding few weeks to months. FAMILY AND SOCIAL HISTORY: Lives in the community, 10+ pack year tobacco smoking history. Denies alcohol or illicit drug use or abuse. She does admit to taking marijuana. FAMILY HISTORY: Otherwise, unobtainable. REVIEW OF SYSTEMS: Difficult to obtain secondary the patient's medical and mental condition. Since she has been here, no gross hematochezia or melena. No gross hematuria or dysuria. No hematemesis. No hemoptysis. Denies heat or cold intolerance. Complete 13-system review of systems was obtained as best as I could. Pertinent positives and/or negatives as in body of history above, otherwise they are noncontributory. PHYSICAL EXAMINATION: VITAL SIGNS: At presentation, she was febrile, temperature 101.7 degrees Fahrenheit, pulse of 116, respiratory rate of 29, blood pressure 154/106, O2 sats were 95%. At the time, inspired oxygen concentration was recorded as 3 liters nasal cannula. Her T-max has essentially been 102.4 degrees Fahrenheit through this hospitalization. GENERAL: She is a middle-aged obese female, normocephalic, lying in bed with [id number] increased work of breathing at rest. HEAD, EYES, EARS, NOSE AND THROAT: Anicteric. No conjunctival erythema. Oropharynx was moist. No gross jugular venous distention, no thyromegaly. NECK: Grossly, there were no palpable lymph nodes in the supraclavicular or submandibular lymph node chains. LUNGS: Auscultation of both lung lopez revealed bilateral coarse rhonchi. Expiratory wheezes. HEART: Heart sounds 1 and 2 are heard. Regular tachycardia at the time of my evaluation. ABDOMEN: Soft, full, bowel sounds are positive, nontender. No palpable hepatosplenomegaly. EXTREMITIES: Without overt digital clubbing or cyanosis. No pedal edema. Pedal pulses are 2+ bilaterally. NEUROLOGIC: Pupils are equal, round, about 4 mm, reactive to light. Extraocular muscle movements were intact. She moves all 4 extremities spontaneously. SKIN: Normal turgor in the areas examined without overt cellulitis or rash. Please see the wound care nurse's notes for full description of her skin. PSYCHIATRIC: Her mood and affect were anxious. LABORATORY DATA: From my review are as follows: Admission white cell count 13,500, hemoglobin 12.3, hematocrit 37.5, platelet count is 265. No band forms on the manual differential. D-dimer was less than 135 at that time. Serum sodium was 139, potassium 4.3, chloride 102, bicarbonate 28, BUN 16, creatinine 0.8, glucose was 90. Liver function tests essentially within normal limits. LDH was slightly up at 242. CRP 7.30. Procalcitonin was within normal limits, less than 0.05. Albumin was low at 2.4. Arterial blood gas done today on room air apparently showed a pH of 7.44, pCO2 of 39, pO2 of 39 that was on room air. White count is 12,700 today. Two sets of blood cultures, no growth to date. A chest x-ray was done at admission and I cannot see the bases well, but perhaps an element of hypoventilation. No focal consolidation. Again, I cannot see the bases of this chest x-ray, but no pneumothorax in the lopez that I am seeing no gross bony fractures. COVID-19 serology, I believe, the IgG antibody is nonreactive. Further testing is pending. ASSESSMENT: 1. Acute hypoxemic respiratory failure, now on mechanical ventilatory support. 2. Bilateral pneumonia, left greater than right lungs. 3. COVID-19 infection. 4. History of congestive heart failure. 5. History of lupus erythematosus. 6. Leukocytosis. 7. Tobacco use disorder. 8. Acute asthma exacerbation. 9. History of hypertension. 10. Obesity. PLAN: She had earlier been seen by the Infectious Disease team. I do agree with current protocols. She will be kept in contact and airborne isolation while further COVID-19 testing is done. She has been started on remdesivir therapy. She is on systemic steroids, both for asthma as well as the severe COVID-19 infection. We will trend her inflammatory markers, ferritin, LDH, D-dimers to assembly inspector helper clinical decision making. At this point, she will be kept on DVT prophylaxis dose of anticoagulation. She is intubated now. Ventilator-associated pneumonia bundle has been introduced. She will be started empirically on a tidal volume of 450, rate of 25, PEEP of 10, FiO2 of 100%. Oxygen will be weaned to keep sats greater than or equal to about 92%. Aspiration precautions will be maintained. Enteral nutrition will be the feeding modality of choice. Bronchodilators will be continued as ordered. She is appropriately on GI and DVT prophylaxis. I will defer further ancillary medications to the Infectious Disease team. We will keep a close eye on her renal function. Analgesia will be per her CPOT score as soon as she is able to begin daily spontaneous sedation assessment trials as well as spontaneous breathing trials. Flu and pneumonia vaccination will be addressed per protocol. Blood pressure is holding at this point, no need for vasopressors. She is critically ill on life-sustaining interventions including mechanical ventilatory support, at high risk of from cardiopulmonary system decompensation. At this time, I spent about 45-50 minutes of critical care time without overlap and excluding any procedural time that may be necessary. JOB# [id number] JAM/PAMELA DODD
[2020-07-08] MEDS: MIDAZOLAM 100 MG in SODIUM CHLORIDE 0.9% 80 ML IV SCH (18:02)
[2020-07-08 18:55] LABS: ABG Base Excess 0.7 mmol/L (-2.0-3.0); ABG HCO3 25.5 mmol/L (20.0-26.0); ABG Methemoglobin 0.6 % (0.0-1.5); ABG Oxygen Saturation 99.1 % (95.0-99.0); ABG PCO2 41.9 mm Hg; ABG PH 7.403 pH Units (7.350-7.450); ABG PO2 181.8 mm Hg (80.0-90.0)
[2020-07-08] MEDS ORDERED: REMDESIVIR 100 MG in SODIUM CHLORIDE 0.9% 250ML 250 ML IV SCH (21:00)
[2020-07-08] MEDS: MONTELUKAST 10 MG TAB PO SCH (23:09)
[2020-07-08] MEDS: ZINC SULFATE 220 MG CAP PO SCH (23:14)
[2020-07-09] MEDS: fentaNYL DRIP Premix 2,000 MCG/100 ML BAG IV SCH ×5 (02:30→21:02)
[2020-07-09] MEDS: ALBUTEROL 2.5 MG/3 ML NEBU IH SCH ×5 (04:41→20:57)
[2020-07-09 05:02] LABS: ABG Base Excess 1.5 mmol/L (-2.0-3.0); ABG HCO3 26.2 mmol/L (20.0-26.0); ABG Methemoglobin 0.5 % (0.0-1.5); ABG Oxygen Saturation 96.7 % (95.0-99.0); ABG PCO2 41.6 mm Hg; ABG PH 7.416 pH Units (7.350-7.450); ABG PO2 81.7 mm Hg (80.0-90.0)
[2020-07-09 05:34] LABS: Hematocrit 33.5 % (30.3-42.9); Hemoglobin 10.9 gm/dl (10.1-14.3); Mean Corpuscular HGB Conc 33 % (30-34); Mean Corpuscular Volume 92 fl (79-97); Platelet Count 255 K/mm3 (140-440); Red Blood Count 3.66 M/mm3 (3.65-5.03); Red Cell Distribution Width 14.4 % (13.2-15.2)
[2020-07-09 05:40] LABS: Basophils % (Auto) 0.1 % (0.0-1.8); Lymphocytes # (Auto) 0.7 K/mm3 (1.2-5.4); Lymphocytes % (Auto) 4.7 % (13.4-35.0); Monocytes # (Auto) 0.6 K/mm3 (0.0-0.8)
[2020-07-09 05:50] LABS: Alanine Aminotransferase 17 units/L (7-56); Albumin 3.2 g/dL (3.9-5); BUN/Creatinine Ratio 19; Blood Urea Nitrogen 15 mg/dL (7-17); Calcium 8.2 mg/dL (8.4-10.2); Hemolysis Index 4
[2020-07-09] MEDS: methylPREDNISolone Sod Succinate 125 MG/2 ML INJ IV SCH ×4 (07:03→23:06)
[2020-07-09] MEDS: BENZONATATE 100 MG CAP PO SCH ×3 (07:04→23:11)
[2020-07-09] MEDS: BUDESONIDE 0.5 MG/2 ML NEBU IH SCH ×2 (09:01→20:57)
[2020-07-09] MEDS: ARFORMOTEROL 15 MCG/2 ML NEBU IH SCH ×2 (09:01→20:57)
[2020-07-09] MEDS ORDERED: PANTOPRAZOLE 40 MG INJ IV SCH (10:00)
[2020-07-09] MEDS: VENLAFAXINE 37.5 MG TAB PO SCH (11:30)
[2020-07-09] MEDS: ASCORBIC ACID 500 MG TAB PO SCH ×2 (11:31→23:07)
[2020-07-09] MEDS: HYDROXYCHLOROQUINE 200 MG TAB PO SCH (11:31)
[2020-07-09] MEDS: ASPIRIN 81 MG TAB CHEW PO SCH (11:31)
[2020-07-09] MEDS: ENOXAPARIN 30 MG/0.3 ML INJ SUB-Q SCH ×2 (11:32→23:09)
[2020-07-09] MEDS: ZINC SULFATE 220 MG CAP PO SCH ×2 (11:32→23:11)
--- NOTE | 2020-07-09 12:54 | Progress Note ---
Assessment and Plan Acute hypoxemic respiratory failure, now on MVS Bilateral pneumonia, left greater than right lungs. COVID-19 infection. History of congestive heart failure. History of lupus erythematosus. Leukocytosis. Tobacco use disorder. Acute asthma exacerbation. History of hypertension. Obesity - continue airborne and contact isolation - follow repeat COVID-19 testing - continue Zinc & Vit C supplementaion - complete Remdesivir - empiric AB's coverage per ID rec's otherwise - continue systemic steroids for Asthma / severe COVID infection - continue Daily SAT and SBT assessment as tolerated - continue to wean supplemental oxygen for target O2 sat's > 92% acutely - VAP bundle addressed - continue lung protective strategies - continue bronchodilators with pulmonary hygiene per RT - wean per pulmonary driven protocols otherwise - accuchecks with glycemic control per SSI (While critically ill target blood glucose of 140-180 mg/dL; avoid hypoglycemia) - sedation prn for target RASS -1 to -2 - avoid nephrotoxins, renally dose all medications - continue to avoid benzodiazepine's, reduce the possibility of delirium - prn analgesia per CPOT score - Maintenance of sleep-wake cycle, avoid delirium - continue enteral nutritional support at goal rate as tolerated - G.I. & VTE prophylaxis - PT/OT/ROM exercises - continue mobility protocols for pressure ulcer prophylaxis - Monitor hemodynamics closely - continue other care per attending / other consultants - discharge planning ongoing concurrently .... Re-evaluate in am & prn CONDITION: CRITICAL PROGNOSIS: GUARDED CODE STATUS: FULL CODE The high probability of a clinically significant, sudden or life-threatening deterioration of the [respiratory, cardiovascular & neurologic] system(s) required my full and direct attention, intervention and personal management. The aggregate critical care time was [34] minutes without overlap. Time includes spent on; [x] Data Review and interpretation [x] Patient assessment and monitoring of vital signs [x] Documentation [x] Medication orders and management Subjective Date of service: 07/09/20 Principal diagnosis: Ac hypoxemic resp failure; PNA; COVID-19 infxn; SLE; Asthma exacerbation Interval history: Patient is seen today for: Acute hypoxemic respiratory failure; Bilateral pneumonia; COVID-19 infection; H/O CHF; SLE; Acute asthma exacerbation. HTN; Obesity Seen and examined at bedside; 24hour events reviewed; nursing and respiratory care staff consulted; no adverse overnight events reported to me; resting peacefully in bed; on Versed at 5mg/hr and fentanyl @ 4 mics/kg/hr but still very easily startled and following commands; denies pain; No N/V/F/C; FiO2 down to 45% with trice at 10 but desaturates quickly Objective Vital Signs - 12hr 07/09/20 07/09/20 07/09/20 00:51 01:00 01:11 Temperature Pulse Rate 61 59 L 60 Pulse Rate [ Bilateral Throughout] Respiratory 25 H 25 H 25 H Rate Respiratory Rate [Bilateral Throughout] Blood Pressure 121/73 116/69 116/69 O2 Sat by Pulse 94 95 94 Oximetry 07/09/20 07/09/20 07/09/20 01:21 01:30 01:41 Temperature Pulse Rate 60 58 L 58 L Pulse Rate [ Bilateral Throughout] Respiratory 25 H 25 H 25 H Rate Respiratory Rate [Bilateral Throughout] Blood Pressure 111/69 117/69 117/69 O2 Sat by Pulse 95 95 95 Oximetry 07/09/20 07/09/20 07/09/20 01:51 02:00 02:11 Temperature Pulse Rate 58 L 57 L 58 L Pulse Rate [ Bilateral Throughout] Respiratory 25 H 25 H 25 H Rate Respiratory Rate [Bilateral Throughout] Blood Pressure 119/74 116/68 116/68 O2 Sat by Pulse 96 95 95 Oximetry 07/09/20 07/09/20 07/09/20 02:21 02:30 02:41 Temperature Pulse Rate 58 L 55 L 57 L Pulse Rate [ Bilateral Throughout] Respiratory 25 H 25 H 25 H Rate Respiratory Rate [Bilateral Throughout] Blood Pressure 117/70 122/73 122/73 O2 Sat by Pulse 95 95 96 Oximetry 07/09/20 07/09/20 07/09/20 02:51 03:01 03:11 Temperature Pulse Rate 68 63 58 L Pulse Rate [ Bilateral Throughout] Respiratory 18 16 25 H Rate Respiratory Rate [Bilateral Throughout] Blood Pressure 122/66 104/46 104/46 O2 Sat by Pulse 92 89 96 Oximetry 07/09/20 07/09/20 07/09/20 03:21 03:30 03:41 Temperature Pulse Rate 60 62 60 Pulse Rate [ Bilateral Throughout] Respiratory 25 H 25 H 25 H Rate Respiratory Rate [Bilateral Throughout] Blood Pressure 115/64 114/69 114/69 O2 Sat by Pulse 95 94 96 Oximetry 07/09/20 07/09/20 07/09/20 03:51 04:00 04:11 Temperature Pulse Rate 59 L 59 L 59 L Pulse Rate [ Bilateral Throughout] Respiratory 25 H 25 H 25 H Rate Respiratory Rate [Bilateral Throughout] Blood Pressure 118/70 113/67 113/67 O2 Sat by Pulse 96 96 95 Oximetry 07/09/20 07/09/20 07/09/20 04:21 04:30 04:41 Temperature Pulse Rate 61 57 L 58 L Pulse Rate [ 59 L Bilateral Throughout] Respiratory 21 25 H 21 Rate Respiratory 25 H Rate [Bilateral Throughout] Blood Pressure 118/58 114/65 114/65 O2 Sat by Pulse 93 94 95 Oximetry 07/09/20 07/09/20 07/09/20 04:50 04:51 05:00 Temperature Pulse Rate 65 61 63 Pulse Rate [ Bilateral Throughout] Respiratory 21 25 H Rate Respiratory Rate [Bilateral Throughout] Blood Pressure 114/59 114/65 104/51 O2 Sat by Pulse 93 92 93 Oximetry 07/09/20 07/09/20 07/09/20 05:11 05:21 05:30 Temperature Pulse Rate 63 62 63 Pulse Rate [ Bilateral Throughout] Respiratory 25 H 25 H 25 H Rate Respiratory Rate [Bilateral Throughout] Blood Pressure 104/51 104/51 114/61 O2 Sat by Pulse 95 96 95 Oximetry 07/09/20 07/09/20 07/09/20 05:41 05:51 06:00 Temperature Pulse Rate 61 66 63 Pulse Rate [ Bilateral Throughout] Respiratory 25 H 25 H 25 H Rate Respiratory Rate [Bilateral Throughout] Blood Pressure 114/61 114/59 112/55 O2 Sat by Pulse 96 93 93 Oximetry 07/09/20 07/09/20 07/09/20 06:11 06:21 06:30 Temperature Pulse Rate 61 61 60 Pulse Rate [ Bilateral Throughout] Respiratory 25 H 25 H 25 H Rate Respiratory Rate [Bilateral Throughout] Blood Pressure 112/55 114/62 114/62 O2 Sat by Pulse 94 94 93 Oximetry 07/09/20 07/09/20 07/09/20 06:40 06:51 07:00 Temperature Pulse Rate 63 59 L 75 Pulse Rate [ Bilateral Throughout] Respiratory 25 H 25 H 16 Rate Respiratory Rate [Bilateral Throughout] Blood Pressure 114/62 97/44 O2 Sat by Pulse 92 92 92 Oximetry 07/09/20 07/09/20 07/09/20 07:11 07:21 07:30 Temperature Pulse Rate 63 61 80 Pulse Rate [ Bilateral Throughout] Respiratory 25 H 26 H 22 Rate Respiratory Rate [Bilateral Throughout] Blood Pressure 97/44 112/51 94/49 O2 Sat by Pulse 92 91 85 Oximetry 07/09/20 07/09/20 07/09/20 07:41 07:51 08:00 Temperature 99.2 F Pulse Rate 62 63 63 Pulse Rate [ Bilateral Throughout] Respiratory 25 H 25 H 25 H Rate Respiratory Rate [Bilateral Throughout] Blood Pressure 94/49 113/68 122/71 O2 Sat by Pulse 95 94 94 Oximetry 07/09/20 07/09/20 07/09/20 08:11 08:21 08:30 Temperature Pulse Rate 61 60 63 Pulse Rate [ Bilateral Throughout] Respiratory 25 H 25 H 25 H Rate Respiratory Rate [Bilateral Throughout] Blood Pressure 122/71 125/75 118/56 O2 Sat by Pulse 95 96 94 Oximetry 07/09/20 07/09/20 07/09/20 08:41 08:51 08:58 Temperature Pulse Rate 67 64 65 Pulse Rate [ Bilateral Throughout] Respiratory 27 H 25 H Rate Respiratory Rate [Bilateral Throughout] Blood Pressure 118/56 110/55 110/55 O2 Sat by Pulse 93 94 95 Oximetry 07/09/20 07/09/20 07/09/20 09:00 09:02 09:11 Temperature Pulse Rate 65 66 Pulse Rate [ 67 Bilateral Throughout] Respiratory 25 H 25 H Rate Respiratory 25 H Rate [Bilateral Throughout] Blood Pressure 111/52 111/52 O2 Sat by Pulse 95 95 Oximetry 07/09/20 07/09/20 07/09/20 09:21 09:30 09:41 Temperature Pulse Rate 65 67 64 Pulse Rate [ Bilateral Throughout] Respiratory 25 H 25 H 25 H Rate Respiratory Rate [Bilateral Throughout] Blood Pressure 109/57 114/60 114/60 O2 Sat by Pulse 95 95 95 Oximetry 07/09/20 07/09/20 07/09/20 09:51 10:00 10:11 Temperature Pulse Rate 64 65 62 Pulse Rate [ Bilateral Throughout] Respiratory 25 H 25 H 25 H Rate Respiratory Rate [Bilateral Throughout] Blood Pressure 115/60 112/59 112/59 O2 Sat by Pulse 95 94 94 Oximetry 07/09/20 07/09/20 07/09/20 10:21 10:30 10:41 Temperature Pulse Rate 62 63 62 Pulse Rate [ Bilateral Throughout] Respiratory 25 H 25 H 25 H Rate Respiratory Rate [Bilateral Throughout] Blood Pressure 111/59 110/58 110/58 O2 Sat by Pulse 94 95 95 Oximetry 07/09/20 07/09/20 07/09/20 10:51 11:00 11:08 Temperature Pulse Rate 63 59 L 59 L Pulse Rate [ Bilateral Throughout] Respiratory 25 H 25 H Rate Respiratory Rate [Bilateral Throughout] Blood Pressure 111/58 110/58 110/58 O2 Sat by Pulse 95 96 95 Oximetry 07/09/20 07/09/20 07/09/20 11:11 11:21 11:30 Temperature Pulse Rate 61 62 60 Pulse Rate [ Bilateral Throughout] Respiratory 25 H 25 H 25 H Rate Respiratory Rate [Bilateral Throughout] Blood Pressure 110/58 107/58 108/56 O2 Sat by Pulse 96 95 95 Oximetry 07/09/20 07/09/20 07/09/20 11:41 11:51 11:58 Temperature Pulse Rate 59 L 61 Pulse Rate [ Bilateral Throughout] Respiratory 25 H 25 H Rate Respiratory Rate [Bilateral Throughout] Blood Pressure 107/58 107/49 O2 Sat by Pulse 96 93 93 Oximetry 07/09/20 12:00 Temperature 98.7 F Pulse Rate Pulse Rate [ Bilateral Throughout] Respiratory Rate Respiratory Rate [Bilateral Throughout] Blood Pressure O2 Sat by Pulse Oximetry Constitutional: no acute distress, other (middle aged obese female with mildly increased respiratory effort at rest on MVS) Eyes: non-icteric ENT: oropharynx moist, other (ETT 24 cm YANET) Neck: supple, no lymphadenopathy, no JVD Effort: mildly labored Ascultation: Bilateral: diminished breath sounds, rhonchi (scant) Percussion: Bilateral: not dull Cardiovascular: regular rate and rhythm Gastrointestinal: normoactive bowel sounds, soft, non-tender, non-distended Integumentary: normal Extremities: no cyanosis, no edema, pulses normal, no ischemia or petechiae Neurologic: normal mental status, non-focal exam, pupils equal and round, motor strength normal and Psychiatric: anxious, other (sedated) CBC and BMP: 07/09/20 04:00 07/09/20 04:00 ABG, PT/INR, D-dimer: ABG ABG pH 7.416 pH Units (7.350-7.450) 07/09/20 04:49 ABG pCO2 41.6 mm Hg 07/09/20 04:49 ABG pO2 81.7 mm Hg (80.0-90.0) 07/09/20 04:49 ABG O2 Saturation 96.7 % (95.0-99.0) 07/09/20 04:49 PT/INR, D-dimer D-Dimer 135.00 ng/mlDDU (0-234) 07/09/20 04:00 Abnormal lab findings: Abnormal Labs 07/06/20 07/06/20 07/07/20 05:24 17:16 04:50 WBC 13.5 H 12.7 H Lymph % (Auto) Lymph # (Auto) Seg Neuts % (Manual) 86.0 H 87.0 H Lymphocytes % (Manual) 6.0 L 9.0 L Seg Neutrophils # Seg Neutrophils # Man 11.6 H 11.0 H Lymphocytes # (Manual) 0.8 L 1.1 L ABG pO2 ABG HCO3 ABG O2 Saturation ABG Hemoglobin Oxyhemoglobin Carbon Dioxide BUN Glucose POC Glucose Calcium Ferritin Lactate Dehydrogenase 242 H C-Reactive Protein 7.30 H Total Protein Albumin 07/07/20 07/07/20 07/07/20 04:50 14:22 14:22 WBC Lymph % (Auto) Lymph # (Auto) Seg Neuts % (Manual) Lymphocytes % (Manual) Seg Neutrophils # Seg Neutrophils # Man Lymphocytes # (Manual) ABG pO2 ABG HCO3 ABG O2 Saturation ABG Hemoglobin Oxyhemoglobin Carbon Dioxide BUN 18 H Glucose 138 H POC Glucose Calcium Ferritin 228.2 H Lactate Dehydrogenase 277 H C-Reactive Protein Total Protein 5.9 L Albumin 3.4 L 07/08/20 07/08/20 07/08/20 11:18 12:57 16:13 WBC Lymph % (Auto) Lymph # (Auto) Seg Neuts % (Manual) Lymphocytes % (Manual) Seg Neutrophils # Seg Neutrophils # Man Lymphocytes # (Manual) ABG pO2 39.3 L* ABG HCO3 ABG O2 Saturation 76.8 L ABG Hemoglobin Oxyhemoglobin 75.3 L Carbon Dioxide 20 L D BUN Glucose 135 H POC Glucose 106 H Calcium 8.0 L Ferritin Lactate Dehydrogenase C-Reactive Protein Total Protein Albumin 07/08/20 07/08/20 07/09/20 17:04 18:45 04:00 WBC 15.6 H Lymph % (Auto) 4.7 L Lymph # (Auto) 0.7 L Seg Neuts % (Manual) Lymphocytes % (Manual) Seg Neutrophils # 14.2 H Seg Neutrophils # Man Lymphocytes # (Manual) ABG pO2 181.8 H ABG HCO3 ABG O2 Saturation 99.1 H ABG Hemoglobin 11.4 L Oxyhemoglobin Carbon Dioxide BUN Glucose POC Glucose 117 H Calcium Ferritin Lactate Dehydrogenase C-Reactive Protein Total Protein Albumin 07/09/20 07/09/20 07/09/20 04:00 04:00 04:49 WBC Lymph % (Auto) Lymph # (Auto) Seg Neuts % (Manual) Lymphocytes % (Manual) Seg Neutrophils # Seg Neutrophils # Man Lymphocytes # (Manual) ABG pO2 ABG HCO3 26.2 H ABG O2 Saturation ABG Hemoglobin 11.2 L Oxyhemoglobin 94.9 L Carbon Dioxide BUN Glucose 158 H POC Glucose Calcium 8.2 L Ferritin 320.0 H Lactate Dehydrogenase 391 H C-Reactive Protein 9.50 H Total Protein 5.9 L Albumin 3.2 L 07/09/20 11:56 WBC Lymph % (Auto) Lymph # (Auto) Seg Neuts % (Manual) Lymphocytes % (Manual) Seg Neutrophils # Seg Neutrophils # Man Lymphocytes # (Manual) ABG pO2 ABG HCO3 ABG O2 Saturation ABG Hemoglobin Oxyhemoglobin Carbon Dioxide BUN Glucose POC Glucose 156 H Calcium Ferritin Lactate Dehydrogenase C-Reactive Protein Total Protein Albumin Chest x-ray: image reviewed (ETT in good position; + bilateral infiltrates) Allied health notes reviewed: nursing
--- NOTE | 2020-07-09 14:33 | Progress Note ---
Assessment and Plan Cultures: Blood cultures 07/07/2020 no growth today SARS COV2- IgG negative Sputum culture 07/08/2020 usual respiratory kerwin A/P: 50-year-old female with CHF, asthma, hypertension, lupus was admitted to the hospital with complaints of fever, shortness of breath. Of note, she was seen last week due to an asthma exacerbation when her SARS-CoV-2 PCR and IgG were both negative. She was treated with steroids. She reportedly then went to [place] and tested positive for COVID-19 and was discharged from the hospital on 07/05/2020.: #Acute asthma exacerbation: on nebs and steroids. #Acute hypoxic respiratory failure: Patient is now intubated FiO2 45% PEEP 10 #Critical COVID diagnosis at [place]: Repeat chest x-ray with bilateral pneumonia. Labs show mild leukocytosis, procalcitonin 0.05, LDH 242, CRP 7.3. #Lupus, immunocompromised host: On Plaquenil. Recs: -SARS-CoV-2 IgG is negative, patient will benefit from COVID-19 plasma -Continue remdesivir total 5 days -day 2 of 5 -Continue steroids -prophylactic anticoagulation based on d-dimer -trend ferritin, LDH, d-dimer, CRP every 2-3 days for risk stratification and to assess disease progression -Procal is low, no indication for abx at this time will follow Eneida Quiñones MD [facility] ([facility]) Office [phone] Subjective Date of service: 07/09/20 Principal diagnosis: Ac hypoxemic resp failure; PNA; COVID-19 infxn; SLE; Asthma exacerbation Interval history: Patient remains intubated, FiO2 45%, PEEP of 10, on fentanyl and Versed no fever Objective - Exam Narrative Exam: Physical Exam: reviewed ED and hospitalist notes, limited due to conservation of PPE and decrease risk of transmission. General appearance: limited due to conservation of PPE Eyes: limited due to conservation of PPE HENT: Atraumatic; limited due to conservation of PPE Lungs: limited due to conservation of PPE CV: limited due to conservation of PPE Abdomen: limited due to conservation of PPE Extremities: limited due to conservation of PPE Skin: limited due to conservation of PPE Psych: limited due to conservation of PPE Neuro: limited due to conservation of PPE - Constitutional Vitals: Vital Signs Temp Pulse Resp BP Pulse Ox 98.7 F 61 25 H 103/56 98 07/09/20 12:00 07/09/20 14:09 07/09/20 11:51 07/09/20 14:09 07/09/20 14:09 Temperature -Last 24 Hours Temperature 98.7 F Temperature 99.2 F - Labs CBC & Chem 7: 07/09/20 04:00 07/09/20 04:00 Labs: Abnormal lab results 07/08/20 07/08/20 07/08/20 Range/Units 16:13 17:04 18:45 WBC (4.5-11.0) K/mm3 Lymph % (Auto) (13.4-35.0) % Lymph # (Auto) (1.2-5.4) K/mm3 Seg Neutrophils # (1.8-7.7) K/mm3 ABG pO2 181.8 H (80.0-90.0) mm Hg ABG HCO3 (20.0-26.0) mmol/L ABG O2 Saturation 99.1 H (95.0-99.0) % ABG Hemoglobin 11.4 L (12.0-16.0) gm/dl Oxyhemoglobin (95.0-99.0) % Carbon Dioxide 20 L D (22-30) mmol/L Glucose 135 H (65-100) mg/dL POC Glucose 117 H (70-105) mg/dL Calcium 8.0 L (8.4-10.2) mg/dL Ferritin (10.0-200.0) ng/mL Lactate Dehydrogenase (91-180) units/L C-Reactive Protein (0.00-1.30) mg/dL Total Protein (6.3-8.2) g/dL Albumin (3.9-5) g/dL 07/09/20 07/09/20 07/09/20 Range/Units 04:00 04:00 04:00 WBC 15.6 H (4.5-11.0) K/mm3 Lymph % (Auto) 4.7 L (13.4-35.0) % Lymph # (Auto) 0.7 L (1.2-5.4) K/mm3 Seg Neutrophils # 14.2 H (1.8-7.7) K/mm3 ABG pO2 (80.0-90.0) mm Hg ABG HCO3 (20.0-26.0) mmol/L ABG O2 Saturation (95.0-99.0) % ABG Hemoglobin (12.0-16.0) gm/dl Oxyhemoglobin (95.0-99.0) % Carbon Dioxide (22-30) mmol/L Glucose 158 H (65-100) mg/dL POC Glucose (70-105) mg/dL Calcium 8.2 L (8.4-10.2) mg/dL Ferritin 320.0 H (10.0-200.0) ng/mL Lactate Dehydrogenase 391 H (91-180) units/L C-Reactive Protein 9.50 H (0.00-1.30) mg/dL Total Protein 5.9 L (6.3-8.2) g/dL Albumin 3.2 L (3.9-5) g/dL 07/09/20 07/09/20 Range/Units 04:49 11:56 WBC (4.5-11.0) K/mm3 Lymph % (Auto) (13.4-35.0) % Lymph # (Auto) (1.2-5.4) K/mm3 Seg Neutrophils # (1.8-7.7) K/mm3 ABG pO2 (80.0-90.0) mm Hg ABG HCO3 26.2 H (20.0-26.0) mmol/L ABG O2 Saturation (95.0-99.0) % ABG Hemoglobin 11.2 L (12.0-16.0) gm/dl Oxyhemoglobin 94.9 L (95.0-99.0) % Carbon Dioxide (22-30) mmol/L Glucose (65-100) mg/dL POC Glucose 156 H (70-105) mg/dL Calcium (8.4-10.2) mg/dL Ferritin (10.0-200.0) ng/mL Lactate Dehydrogenase (91-180) units/L C-Reactive Protein (0.00-1.30) mg/dL Total Protein (6.3-8.2) g/dL Albumin (3.9-5) g/dL
--- NOTE | 2020-07-09 17:57 | Progress Note ---
Assessment and Plan --Acute asthma exacerbation Solumedrol 60mg q 6 Oxygen supplementation as needed Continue montelukast Monitor oxygen saturations closely -- COVID-19 Tested positive for COVID-19 in [place] Solumedrol 60q6, Remdesivir for 5 days Procalcitonin <0.05 ID on board follow ferritin, ldh, d-dimer levels -- Acute hypoxic respiratory failure Now intubated on 07/09/20 overnight From COVID-19 and asthma exacerbation Continue steroids Continue oxygen supplementation -- GERD (gastroesophageal reflux disease) cont Pantoprazole --SLE (systemic lupus erythematosus related syndrome) Continue home medications-hydroxychloroquine -- DVT prophylaxis Lovenox 30 mg twice daily -- Full code status The high probability of a clinically significant, sudden or life threatening deterioration of the [[employer], respiratory, [employer]] system(s) required my full and direct attention, intervention and personal management. The aggregate critical care time was [] minutes. This time is in addition to time spent performing reported procedures but includes the following: [x] Data Review and interpretation [x] Patient assessment and monitoring of vital signs [x] Documentation [x] Medication orders and management brief History: 50-year-old female with a past medical history of asthma, CHF, hypertension, and lupus complains of generalized body weakness, fever and shortness of breath. Patient states the symptoms started right after she was discharged from [place] on 07/05. She has associated wheezing, fever, cough and she has been using her inhalers with no significant effect. She also has associated diarrhea. Of no te, she was hospitalized here in [facility] on 06/28 for asthma exacerbation and had a negative Covid test during the admission. She was treated and discharged. She presented to [place] for further evaluation after discharge from here and over there, she was found to have positive COVID-19 test and she was placed on steroids and subsequently discharged on Eliquis prophylaxis for DVT. She states that she did not receive remdesivir during the admission. She was discharged from [place] on 07/05. She went home and felt worse. She said that she passed out about 2 times. Due to persistent symptoms, she called EMS who brought her to [facility] for further evaluation. Daily course: 07/07. Patient seen and examined at bedside this morning. Patient is wheezing and slightly short of breath. Change steroids to Solu-Medrol 60 every 6. Added formoterol and budesonide. ID evaluation pending. Started patient on remdesivir as she is short of breath. 07/07. Placed on BIPAP this AM. Will need pulm evaluation. Solumedrol 60mg q6. STAT blood gas ordered. She will be transferred to [facility]. 07/08: Patient took oxygen off and attempts to go to the bathroom and subsequently became hypoxemic with sats down into the low 80s. Patient became weak short of breath. After that time patient had persistent coughing and cannot maintain sats until nonrebreather was placed. Patient is transferred to the ICU unit and monitored for respiratory failure possibly requiring intubation. 07/09: ID recommended for convalescent plasma, ordered. Patient intubated overnight. Continue to monitor clinically, scheduled lab, follow inflammatory markers Subjective Date of service: 07/09/20 Principal diagnosis: Ac hypoxemic resp failure; PNA; COVID-19 infxn; SLE; Asthma exacerbation Interval history: Patient seen and examined Patient remains intubated on mechanical ventilation Discussed with RN at the bedside, started on tube feeding Reviewed vitals Objective - Exam Narrative Exam: GENERAL: well-developed obese -Vincentian female lying on bed intubated and sedated HEENT: Normocephalic. Atraumatic. No conjunctival congestion or icterus. Patient has moist mucous membranes. NECK: Supple. Trachea midline. ET tube in place, intubated with mechanical ventilation CHEST/LUNGS: Diffuse expiratory wheezes, coarse breath sound bilaterally HEART/CARDIOVASCULAR: Regular in rate and rhythm. S1 and S2 positive. ABDOMEN: Abdomen is soft, nontender. Patient has normal bowel sounds. SKIN: There is no rash. Warm and dry. NEURO: Sedated MUSCULOSKELETAL: No joint effusion or tenderness. EXTRIMITY: No edema, no cyanosis or clubbing. PSYCH: Unable to assess - Constitutional Vitals: Vital Signs - 12hr 07/09/20 07/09/20 07/09/20 06:00 06:11 06:21 Temperature Pulse Rate 63 61 61 Pulse Rate [ Bilateral Throughout] Respiratory 25 H 25 H 25 H Rate Respiratory Rate [Bilateral Throughout] Blood Pressure 112/55 112/55 114/62 O2 Sat by Pulse 93 94 94 Oximetry 07/09/20 07/09/20 07/09/20 06:30 06:40 06:51 Temperature Pulse Rate 60 63 59 L Pulse Rate [ Bilateral Throughout] Respiratory 25 H 25 H 25 H Rate Respiratory Rate [Bilateral Throughout] Blood Pressure 114/62 114/62 O2 Sat by Pulse 93 92 92 Oximetry 07/09/20 07/09/20 07/09/20 07:00 07:11 07:21 Temperature Pulse Rate 75 63 61 Pulse Rate [ Bilateral Throughout] Respiratory 16 25 H 26 H Rate Respiratory Rate [Bilateral Throughout] Blood Pressure 97/44 97/44 112/51 O2 Sat by Pulse 92 92 91 Oximetry 07/09/20 07/09/20 07/09/20 07:30 07:41 07:51 Temperature Pulse Rate 80 62 63 Pulse Rate [ Bilateral Throughout] Respiratory 22 25 H 25 H Rate Respiratory Rate [Bilateral Throughout] Blood Pressure 94/49 94/49 113/68 O2 Sat by Pulse 85 95 94 Oximetry 07/09/20 07/09/20 07/09/20 08:00 08:11 08:21 Temperature 99.2 F Pulse Rate 63 61 60 Pulse Rate [ Bilateral Throughout] Respiratory 25 H 25 H 25 H Rate Respiratory Rate [Bilateral Throughout] Blood Pressure 122/71 122/71 125/75 O2 Sat by Pulse 94 95 96 Oximetry 07/09/20 07/09/20 07/09/20 08:30 08:41 08:51 Temperature Pulse Rate 63 67 64 Pulse Rate [ Bilateral Throughout] Respiratory 25 H 27 H 25 H Rate Respiratory Rate [Bilateral Throughout] Blood Pressure 118/56 118/56 110/55 O2 Sat by Pulse 94 93 94 Oximetry 07/09/20 07/09/20 07/09/20 08:58 09:00 09:02 Temperature Pulse Rate 65 65 Pulse Rate [ 67 Bilateral Throughout] Respiratory 25 H Rate Respiratory 25 H Rate [Bilateral Throughout] Blood Pressure 110/55 111/52 O2 Sat by Pulse 95 95 Oximetry 07/09/20 07/09/20 07/09/20 09:11 09:21 09:30 Temperature Pulse Rate 66 65 67 Pulse Rate [ Bilateral Throughout] Respiratory 25 H 25 H 25 H Rate Respiratory Rate [Bilateral Throughout] Blood Pressure 111/52 109/57 114/60 O2 Sat by Pulse 95 95 95 Oximetry 07/09/20 07/09/20 07/09/20 09:41 09:51 10:00 Temperature Pulse Rate 64 64 65 Pulse Rate [ Bilateral Throughout] Respiratory 25 H 25 H 25 H Rate Respiratory Rate [Bilateral Throughout] Blood Pressure 114/60 115/60 112/59 O2 Sat by Pulse 95 95 94 Oximetry 07/09/20 07/09/20 07/09/20 10:11 10:21 10:30 Temperature Pulse Rate 62 62 63 Pulse Rate [ Bilateral Throughout] Respiratory 25 H 25 H 25 H Rate Respiratory Rate [Bilateral Throughout] Blood Pressure 112/59 111/59 110/58 O2 Sat by Pulse 94 94 95 Oximetry 07/09/20 07/09/20 07/09/20 10:41 10:51 11:00 Temperature Pulse Rate 62 63 59 L Pulse Rate [ Bilateral Throughout] Respiratory 25 H 25 H 25 H Rate Respiratory Rate [Bilateral Throughout] Blood Pressure 110/58 111/58 110/58 O2 Sat by Pulse 95 95 96 Oximetry 07/09/20 07/09/20 07/09/20 11:08 11:11 11:21 Temperature Pulse Rate 59 L 61 62 Pulse Rate [ Bilateral Throughout] Respiratory 25 H 25 H Rate Respiratory Rate [Bilateral Throughout] Blood Pressure 110/58 110/58 107/58 O2 Sat by Pulse 95 96 95 Oximetry 07/09/20 07/09/20 07/09/20 11:30 11:41 11:51 Temperature Pulse Rate 60 59 L 61 Pulse Rate [ Bilateral Throughout] Respiratory 25 H 25 H 25 H Rate Respiratory Rate [Bilateral Throughout] Blood Pressure 108/56 107/58 107/49 O2 Sat by Pulse 95 96 93 Oximetry 07/09/20 07/09/20 07/09/20 11:58 12:00 12:11 Temperature 98.7 F Pulse Rate 61 63 Pulse Rate [ Bilateral Throughout] Respiratory 25 H 25 H Rate Respiratory Rate [Bilateral Throughout] Blood Pressure 104/49 107/49 O2 Sat by Pulse 93 93 92 Oximetry 07/09/20 07/09/20 07/09/20 12:21 12:30 12:41 Temperature Pulse Rate 62 60 63 Pulse Rate [ Bilateral Throughout] Respiratory 25 H 25 H 25 H Rate Respiratory Rate [Bilateral Throughout] Blood Pressure 101/53 105/52 105/52 O2 Sat by Pulse 94 94 93 Oximetry 07/09/20 07/09/20 07/09/20 12:51 13:00 13:11 Temperature Pulse Rate 62 63 62 Pulse Rate [ Bilateral Throughout] Respiratory 25 H 25 H 25 H Rate Respiratory Rate [Bilateral Throughout] Blood Pressure 107/55 104/52 104/52 O2 Sat by Pulse 92 93 93 Oximetry 07/09/20 07/09/20 07/09/20 13:21 13:30 13:41 Temperature Pulse Rate 62 58 L 61 Pulse Rate [ Bilateral Throughout] Respiratory 25 H 25 H 25 H Rate Respiratory Rate [Bilateral Throughout] Blood Pressure 109/53 111/56 109/53 O2 Sat by Pulse 93 96 93 Oximetry 07/09/20 07/09/20 07/09/20 13:51 14:00 14:09 Temperature Pulse Rate 59 L 62 61 Pulse Rate [ Bilateral Throughout] Respiratory 25 H 25 H Rate Respiratory Rate [Bilateral Throughout] Blood Pressure 95/47 103/56 103/56 O2 Sat by Pulse 96 93 98 Oximetry 07/09/20 07/09/20 07/09/20 14:11 14:21 14:30 Temperature Pulse Rate 59 L 61 63 Pulse Rate [ Bilateral Throughout] Respiratory 25 H 25 H 25 H Rate Respiratory Rate [Bilateral Throughout] Blood Pressure 95/47 156/79 135/75 O2 Sat by Pulse 95 95 95 Oximetry 07/09/20 07/09/20 07/09/20 14:41 14:51 15:01 Temperature Pulse Rate 63 61 71 Pulse Rate [ Bilateral Throughout] Respiratory 25 H 25 H 20 Rate Respiratory Rate [Bilateral Throughout] Blood Pressure 135/75 132/69 106/71 O2 Sat by Pulse 95 95 94 Oximetry 07/09/20 07/09/20 07/09/20 15:11 15:21 15:30 Temperature Pulse Rate 57 L 60 61 Pulse Rate [ Bilateral Throughout] Respiratory 25 H 25 H 25 H Rate Respiratory Rate [Bilateral Throughout] Blood Pressure 106/71 125/69 122/72 O2 Sat by Pulse 96 94 93 Oximetry 07/09/20 07/09/20 07/09/20 15:35 15:41 15:51 Temperature 98.4 F Pulse Rate 61 62 Pulse Rate [ Bilateral Throughout] Respiratory 25 H 25 H Rate Respiratory Rate [Bilateral Throughout] Blood Pressure 122/72 124/70 O2 Sat by Pulse 94 94 Oximetry 07/09/20 07/09/20 07/09/20 16:00 16:11 16:21 Temperature Pulse Rate 61 60 60 Pulse Rate [ Bilateral Throughout] Respiratory 25 H 25 H 25 H Rate Respiratory Rate [Bilateral Throughout] Blood Pressure 105/59 105/59 99/53 O2 Sat by Pulse 94 93 94 Oximetry 07/09/20 07/09/20 07/09/20 16:30 16:41 16:51 Temperature Pulse Rate 59 L 60 61 Pulse Rate [ Bilateral Throughout] Respiratory 26 H 25 H 19 Rate Respiratory Rate [Bilateral Throughout] Blood Pressure 101/55 101/55 99/54 O2 Sat by Pulse 94 94 91 Oximetry 07/09/20 07/09/20 07/09/20 17:00 17:08 17:10 Temperature Pulse Rate 58 L 55 L Pulse Rate [ 56 L Bilateral Throughout] Respiratory 25 H Rate Respiratory 26 H Rate [Bilateral Throughout] Blood Pressure 104/56 104/56 O2 Sat by Pulse 94 98 Oximetry 07/09/20 07/09/20 07/09/20 17:11 17:21 17:30 Temperature Pulse Rate 58 L 62 61 Pulse Rate [ Bilateral Throughout] Respiratory 19 25 H 25 H Rate Respiratory Rate [Bilateral Throughout] Blood Pressure 104/56 118/71 103/61 O2 Sat by Pulse 95 90 93 Oximetry 07/09/20 17:41 Temperature Pulse Rate 63 Pulse Rate [ Bilateral Throughout] Respiratory 25 H Rate Respiratory Rate [Bilateral Throughout] Blood Pressure 103/61 O2 Sat by Pulse 93 Oximetry - Labs CBC & Chem 7: 07/12/20 04:00 07/12/20 04:00 Labs: Abnormal lab results 07/08/20 07/09/20 07/09/20 Range/Units 18:45 04:00 04:00 WBC 15.6 H (4.5-11.0) K/mm3 Lymph % (Auto) 4.7 L (13.4-35.0) % Lymph # (Auto) 0.7 L (1.2-5.4) K/mm3 Seg Neutrophils # 14.2 H (1.8-7.7) K/mm3 ABG pO2 181.8 H (80.0-90.0) mm Hg ABG HCO3 (20.0-26.0) mmol/L ABG O2 Saturation 99.1 H (95.0-99.0) % ABG Hemoglobin 11.4 L (12.0-16.0) gm/dl Oxyhemoglobin (95.0-99.0) % Glucose 158 H (65-100) mg/dL POC Glucose (70-105) mg/dL Calcium 8.2 L (8.4-10.2) mg/dL Ferritin (10.0-200.0) ng/mL Lactate Dehydrogenase 391 H (91-180) units/L C-Reactive Protein 9.50 H (0.00-1.30) mg/dL Total Protein 5.9 L (6.3-8.2) g/dL Albumin 3.2 L (3.9-5) g/dL 07/09/20 07/09/20 07/09/20 Range/Units 04:00 04:49 11:56 WBC (4.5-11.0) K/mm3 Lymph % (Auto) (13.4-35.0) % Lymph # (Auto) (1.2-5.4) K/mm3 Seg Neutrophils # (1.8-7.7) K/mm3 ABG pO2 (80.0-90.0) mm Hg ABG HCO3 26.2 H (20.0-26.0) mmol/L ABG O2 Saturation (95.0-99.0) % ABG Hemoglobin 11.2 L (12.0-16.0) gm/dl Oxyhemoglobin 94.9 L (95.0-99.0) % Glucose (65-100) mg/dL POC Glucose 156 H (70-105) mg/dL Calcium (8.4-10.2) mg/dL Ferritin 320.0 H (10.0-200.0) ng/mL Lactate Dehydrogenase (91-180) units/L C-Reactive Protein (0.00-1.30) mg/dL Total Protein (6.3-8.2) g/dL Albumin (3.9-5) g/dL 07/09/20 Range/Units 17:49 WBC (4.5-11.0) K/mm3 Lymph % (Auto) (13.4-35.0) % Lymph # (Auto) (1.2-5.4) K/mm3 Seg Neutrophils # (1.8-7.7) K/mm3 ABG pO2 (80.0-90.0) mm Hg ABG HCO3 (20.0-26.0) mmol/L ABG O2 Saturation (95.0-99.0) % ABG Hemoglobin (12.0-16.0) gm/dl Oxyhemoglobin (95.0-99.0) % Glucose (65-100) mg/dL POC Glucose 119 H (70-105) mg/dL Calcium (8.4-10.2) mg/dL Ferritin (10.0-200.0) ng/mL Lactate Dehydrogenase (91-180) units/L C-Reactive Protein (0.00-1.30) mg/dL Total Protein (6.3-8.2) g/dL Albumin (3.9-5) g/dL
[2020-07-09] MEDS: MIDAZOLAM 100 MG in SODIUM CHLORIDE 0.9% 80 ML IV SCH (18:07)
[2020-07-09] MEDS: MIDAZOLAM 2 MG/2 ML INJ IV PRN (21:02)
[2020-07-09] MEDS: MONTELUKAST 10 MG TAB PO SCH (23:07)
[2020-07-09] MEDS: REMDESIVIR 100 MG in SODIUM CHLORIDE 0.9% 250ML 250 ML IV SCH (23:51)
[2020-07-09] MEDS: SODIUM CHLORIDE 0.9% 50 ML IVPB IV SCH (23:52)
[2020-07-10] MEDS: ALBUTEROL 2.5 MG/3 ML NEBU IH SCH ×7 (00:38→20:42)
[2020-07-10] MEDS: fentaNYL DRIP Premix 2,000 MCG/100 ML BAG IV SCH ×5 (02:22→23:56)
--- NOTE | 2020-07-10 03:57 | XRay Report ---
CHEST 1 VIEW INDICATION / CLINICAL INFORMATION: Pneumonia; COVID. COMPARISON: 07/08/2020 FINDINGS: SUPPORT DEVICES: Stable, satisfactory device positioning. HEART / MEDIASTINUM: No significant abnormality. LUNGS / PLEURA: Bilateral pulmonary opacities appear slightly worse. No pneumothorax. ADDITIONAL FINDINGS: No significant additional findings. IMPRESSION: 1. Slight interval worsening of bilateral pulmonary opacities. Signer Name: Sakshi Birmingham MD Signed: 07/10/2020 3:53 AM Workstation Name: [id number]
[2020-07-10 04:13] LABS: ABG Base Excess 2.4 mmol/L (-2.0-3.0); ABG HCO3 27.5 mmol/L (20.0-26.0); ABG Methemoglobin 0.5 % (0.0-1.5); ABG Oxygen Saturation 96.5 % (95.0-99.0); ABG PCO2 45.4 mm Hg; ABG PH 7.401 pH Units (7.350-7.450); ABG PO2 75.7 mm Hg (80.0-90.0)
[2020-07-10] MEDS: methylPREDNISolone Sod Succinate 125 MG/2 ML INJ IV SCH ×4 (06:51→23:43)
[2020-07-10] MEDS: BENZONATATE 100 MG CAP PO SCH ×3 (06:52→21:40)
[2020-07-10] MEDS: BUDESONIDE 0.5 MG/2 ML NEBU IH SCH ×2 (08:01→20:42)
[2020-07-10] MEDS: ARFORMOTEROL 15 MCG/2 ML NEBU IH SCH ×2 (08:01→20:42)
--- NOTE | 2020-07-10 08:58 | Progress Note ---
Assessment and Plan Cultures: Blood cultures 07/07/2020 no growth today SARS COV2- IgG negative Sputum culture 07/08/2020 usual respiratory kerwin A/P: 50-year-old female with CHF, asthma, hypertension, lupus was admitted to the hospital with complaints of fever, shortness of breath. Of note, she was seen last week due to an asthma exacerbation when her SARS-CoV-2 PCR and IgG were both negative. She was treated with steroids. She reportedly then went to [place] and tested positive for COVID-19 and was discharged from the hospital on 07/05/2020.: #Acute asthma exacerbation: on nebs and steroids. #Acute hypoxic respiratory failure: Patient is now intubated FiO2 45% PEEP 10 #Critical COVID diagnosis at [place]: Repeat chest x-ray with bilateral pneumonia. Labs show mild leukocytosis, procalcitonin 0.05, LDH 242, CRP 7.3. D-dimer remains normal. Ferritin mildly elevated. #Lupus, immunocompromised host: On Plaquenil. Recs: -SARS-CoV-2 IgG is negative, patient will benefit from COVID-19 plasma -Continue remdesivir total 5 days -day 3 of 5 -Continue steroids -prophylactic anticoagulation based on d-dimer -trend ferritin, LDH, d-dimer, CRP every 2-3 days for risk stratification and to assess disease progression -Procal is low, no indication for abx at this time -Monitor fever -Recheck procalcitonin today will follow Eneida Quiñones MD [facility] ([facility]) Office [phone] Subjective Date of service: 07/10/20 Principal diagnosis: Ac hypoxemic resp failure; PNA; COVID-19 infxn; SLE; Asthma exacerbation Interval history: Patient remains intubated, FiO2 45, PEEP of 10, alert, wants to be repositioned, noted low-grade fever at 100. Objective - Exam Narrative Exam: General appearance: Alert intubated Eyes: anicteric sclerae, moist conjunctivae; no lid-lag; PERRLA HENT: Normocephalic, Atraumatic; normal external ears, nares open, oropharynx e ndotracheal tube in place Neck: supple, tracheal midline, no JVD Lungs: Scattered rhonchi bilaterally CV: RRR no murmur Abdomen: Soft, non-tender; no masses or hepatosplenomegaly Extremities: no edema, no cyanosis Skin: No rash. Psych: no agitated Neuro: alert intubated - Constitutional Vitals: Vital Signs Temp Pulse Resp BP Pulse Ox 98.9 F 60 25 H 131/78 94 07/10/20 04:00 07/10/20 08:00 07/10/20 08:00 07/10/20 08:00 07/10/20 08:00 Temperature -Last 24 Hours Temperature 98.9 F Temperature 100.0 F Temperature 99.3 F Temperature 98.4 F Temperature 98.7 F - Labs CBC & Chem 7: 07/09/20 04:00 07/09/20 04:00 Labs: Abnormal lab results 07/09/20 07/09/20 07/09/20 Range/Units 11:56 17:49 23:39 ABG pO2 (80.0-90.0) mm Hg ABG HCO3 (20.0-26.0) mmol/L ABG Hemoglobin (12.0-16.0) gm/dl Oxyhemoglobin (95.0-99.0) % POC Glucose 156 H 119 H 145 H (70-105) mg/dL 07/10/20 07/10/20 Range/Units 03:32 05:26 ABG pO2 75.7 L (80.0-90.0) mm Hg ABG HCO3 27.5 H (20.0-26.0) mmol/L ABG Hemoglobin 9.3 L (12.0-16.0) gm/dl Oxyhemoglobin 94.7 L (95.0-99.0) % POC Glucose 156 H (70-105) mg/dL
[2020-07-10] MEDS: LANSOPRAZOLE 30 MG SOLUTAB FEEDTUBE SCH (09:21)
[2020-07-10] MEDS: ASCORBIC ACID 500 MG TAB PO SCH ×2 (09:21→21:43)
[2020-07-10] MEDS: ASPIRIN 81 MG TAB CHEW PO SCH (09:21)
[2020-07-10] MEDS: ZINC SULFATE 220 MG CAP PO SCH ×2 (09:21→21:40)
[2020-07-10] MEDS: HYDROXYCHLOROQUINE 200 MG TAB PO SCH (09:21)
[2020-07-10] MEDS: VENLAFAXINE 37.5 MG TAB PO SCH (09:22)
[2020-07-10] MEDS: ENOXAPARIN 30 MG/0.3 ML INJ SUB-Q SCH ×2 (09:22→21:39)
--- NOTE | 2020-07-10 11:34 | Progress Note ---
Assessment and Plan Acute hypoxemic respiratory failure, now on MVS Bilateral pneumonia, left greater than right lungs. COVID-19 infection. History of congestive heart failure. History of lupus erythematosus. Leukocytosis. Tobacco use disorder. Acute asthma exacerbation. History of hypertension. Obesity - keep peep at 10 - keep set rate at 20 - continue to wean supplemental oxygen for target O2 sat's > 92% acutely; - continue airborne and contact isolation - follow repeat COVID-19 testing - continue Zinc & Vit C supplementaion - complete Remdesivir - empiric AB's coverage per ID rec's otherwise - continue systemic steroids for Asthma / severe COVID infection - continue Daily SAT and SBT assessment as tolerated - VAP bundle addressed - continue lung protective strategies - continue bronchodilators with pulmonary hygiene per RT - wean per pulmonary driven protocols otherwise - accuchecks with glycemic control per SSI (While critically ill target blood glucose of 140-180 mg/dL; avoid hypoglycemia) - sedation prn for target RASS -1 to -2 - avoid nephrotoxins, renally dose all medications - continue to avoid benzodiazepine's, reduce the possibility of delirium - prn analgesia per CPOT score - Maintenance of sleep-wake cycle, avoid delirium - continue enteral nutritional support at goal rate as tolerated - G.I. & VTE prophylaxis - PT/OT/ROM exercises - continue mobility protocols for pressure ulcer prophylaxis - Monitor hemodynamics closely - continue other care per attending / other consultants - discharge planning ongoing concurrently .... Re-evaluate in am & prn CONDITION: CRITICAL PROGNOSIS: GUARDED CODE STATUS: FULL CODE The high probability of a clinically significant, sudden or life-threatening deterioration of the [respiratory, cardiovascular & neurologic] system(s) required my full and direct attention, intervention and personal management. The aggregate critical care time was [32] minutes without overlap. Time includes spent on; [x] Data Review and interpretation [x] Patient assessment and monitoring of vital signs [x] Documentation [x] Medication orders and management Subjective Date of service: 07/10/20 Principal diagnosis: Ac hypoxemic resp failure; PNA; COVID-19 infxn; SLE; Asthma exacerbation Interval history: Patient is seen today for: Acute hypoxemic respiratory failure; Bilateral pneumonia; COVID-19 infection; H/O CHF; SLE; Acute asthma exacerbation. HTN; Obesity Seen and examined at bedside; 24hour events reviewed; nursing and respiratory care staff consulted; no adverse overnight events reported to me; resting peacefully in bed; FiO2 still sub-optimal and desaturate's rapidly; on 45% FiO2 but peep at 10; she denies acute chest pains; No N/V/F/C Objective Vital Signs - 12hr 07/09/20 07/10/20 07/10/20 23:54 00:00 00:30 Temperature 100.0 F H Pulse Rate 64 65 Pulse Rate [ Bilateral Throughout] Pulse Rate [ 65 From Monitor] Respiratory 25 H 25 H Rate Respiratory Rate [Bilateral Throughout] Blood Pressure 110/58 111/59 O2 Sat by Pulse 95 93 Oximetry 07/10/20 07/10/20 07/10/20 00:31 01:00 01:30 Temperature Pulse Rate 65 65 63 Pulse Rate [ Bilateral Throughout] Pulse Rate [ From Monitor] Respiratory 24 H Rate Respiratory Rate [Bilateral Throughout] Blood Pressure 111/59 115/54 108/57 O2 Sat by Pulse 92 91 92 Oximetry 07/10/20 07/10/20 07/10/20 02:00 02:30 03:00 Temperature Pulse Rate 62 63 61 Pulse Rate [ Bilateral Throughout] Pulse Rate [ From Monitor] Respiratory 25 H 25 H 25 H Rate Respiratory Rate [Bilateral Throughout] Blood Pressure 108/63 112/58 106/58 O2 Sat by Pulse 93 94 93 Oximetry 07/10/20 07/10/20 07/10/20 03:30 04:00 04:15 Temperature 98.9 F Pulse Rate 63 60 62 Pulse Rate [ Bilateral Throughout] Pulse Rate [ 65 From Monitor] Respiratory 25 H 25 H Rate Respiratory Rate [Bilateral Throughout] Blood Pressure 114/69 113/59 109/57 O2 Sat by Pulse 94 94 93 Oximetry 07/10/20 07/10/20 07/10/20 04:30 05:00 05:30 Temperature Pulse Rate 60 61 66 Pulse Rate [ Bilateral Throughout] Pulse Rate [ From Monitor] Respiratory 25 H 25 H 15 Rate Respiratory Rate [Bilateral Throughout] Blood Pressure 112/61 114/62 112/67 O2 Sat by Pulse 93 93 94 Oximetry 07/10/20 07/10/20 07/10/20 06:00 06:30 07:00 Temperature Pulse Rate 59 L 56 L 62 Pulse Rate [ Bilateral Throughout] Pulse Rate [ From Monitor] Respiratory 25 H 25 H 25 H Rate Respiratory Rate [Bilateral Throughout] Blood Pressure 118/66 112/66 119/65 O2 Sat by Pulse 94 95 90 Oximetry 07/10/20 07/10/20 07/10/20 07:30 07:58 08:00 Temperature 99.0 F Pulse Rate 62 59 L 58 L Pulse Rate [ 60 Bilateral Throughout] Pulse Rate [ From Monitor] Respiratory 25 H 25 H Rate Respiratory 25 H Rate [Bilateral Throughout] Blood Pressure 109/61 119/65 131/78 O2 Sat by Pulse 91 98 93 Oximetry 07/10/20 07/10/20 07/10/20 08:31 09:01 11:22 Temperature Pulse Rate 58 L 61 57 L Pulse Rate [ Bilateral Throughout] Pulse Rate [ From Monitor] Respiratory 25 H 16 Rate Respiratory Rate [Bilateral Throughout] Blood Pressure 110/58 110/58 118/67 O2 Sat by Pulse 96 95 Oximetry 07/10/20 11:24 Temperature Pulse Rate Pulse Rate [ 56 L Bilateral Throughout] Pulse Rate [ From Monitor] Respiratory Rate Respiratory 25 H Rate [Bilateral Throughout] Blood Pressure O2 Sat by Pulse Oximetry Constitutional: no acute distress, other (middle aged obese female with mildly increased respiratory effort at rest on MVS) Eyes: non-icteric ENT: oropharynx moist, other (ETT 24 cm YANET) Neck: supple, no lymphadenopathy, no JVD Effort: mildly labored Ascultation: Bilateral: diminished breath sounds, rhonchi (scant) Percussion: Bilateral: not dull Cardiovascular: regular rate and rhythm Gastrointestinal: normoactive bowel sounds, soft, non-tender, non-distended Integumentary: normal Extremities: no cyanosis, no edema, pulses normal, no ischemia or petechiae Neurologic: normal mental status, non-focal exam, pupils equal and round, motor strength normal and Psychiatric: other (sedated) CBC and BMP: 07/10/20 12:10 07/10/20 12:10 ABG, PT/INR, D-dimer: ABG ABG pH 7.401 pH Units (7.350-7.450) 07/10/20 03:32 ABG pCO2 45.4 mm Hg 07/10/20 03:32 ABG pO2 75.7 mm Hg (80.0-90.0) L 07/10/20 03:32 ABG O2 Saturation 96.5 % (95.0-99.0) 07/10/20 03:32 PT/INR, D-dimer D-Dimer 135.00 ng/mlDDU (0-234) 07/09/20 04:00 Abnormal lab findings: Abnormal Labs 07/06/20 07/06/20 07/07/20 05:24 17:16 04:50 WBC 13.5 H 12.7 H Lymph % (Auto) Lymph # (Auto) Seg Neuts % (Manual) 86.0 H 87.0 H Lymphocytes % (Manual) 6.0 L 9.0 L Seg Neutrophils # Seg Neutrophils # Man 11.6 H 11.0 H Lymphocytes # (Manual) 0.8 L 1.1 L ABG pO2 ABG HCO3 ABG O2 Saturation ABG Hemoglobin Oxyhemoglobin Carbon Dioxide BUN Glucose POC Glucose Calcium Ferritin Lactate Dehydrogenase 242 H C-Reactive Protein 7.30 H Total Protein Albumin 07/07/20 07/07/20 07/07/20 04:50 14:22 14:22 WBC Lymph % (Auto) Lymph # (Auto) Seg Neuts % (Manual) Lymphocytes % (Manual) Seg Neutrophils # Seg Neutrophils # Man Lymphocytes # (Manual) ABG pO2 ABG HCO3 ABG O2 Saturation ABG Hemoglobin Oxyhemoglobin Carbon Dioxide BUN 18 H Glucose 138 H POC Glucose Calcium Ferritin 228.2 H Lactate Dehydrogenase 277 H C-Reactive Protein Total Protein 5.9 L Albumin 3.4 L 07/08/20 07/08/20 07/08/20 11:18 12:57 16:13 WBC Lymph % (Auto) Lymph # (Auto) Seg Neuts % (Manual) Lymphocytes % (Manual) Seg Neutrophils # Seg Neutrophils # Man Lymphocytes # (Manual) ABG pO2 39.3 L* ABG HCO3 ABG O2 Saturation 76.8 L ABG Hemoglobin Oxyhemoglobin 75.3 L Carbon Dioxide 20 L D BUN Glucose 135 H POC Glucose 106 H Calcium 8.0 L Ferritin Lactate Dehydrogenase C-Reactive Protein Total Protein Albumin 07/08/20 07/08/20 07/09/20 17:04 18:45 04:00 WBC 15.6 H Lymph % (Auto) 4.7 L Lymph # (Auto) 0.7 L Seg Neuts % (Manual) Lymphocytes % (Manual) Seg Neutrophils # 14.2 H Seg Neutrophils # Man Lymphocytes # (Manual) ABG pO2 181.8 H ABG HCO3 ABG O2 Saturation 99.1 H ABG Hemoglobin 11.4 L Oxyhemoglobin Carbon Dioxide BUN Glucose POC Glucose 117 H Calcium Ferritin Lactate Dehydrogenase C-Reactive Protein Total Protein Albumin 07/09/20 07/09/20 07/09/20 04:00 04:00 04:49 WBC Lymph % (Auto) Lymph # (Auto) Seg Neuts % (Manual) Lymphocytes % (Manual) Seg Neutrophils # Seg Neutrophils # Man Lymphocytes # (Manual) ABG pO2 ABG HCO3 26.2 H ABG O2 Saturation ABG Hemoglobin 11.2 L Oxyhemoglobin 94.9 L Carbon Dioxide BUN Glucose 158 H POC Glucose Calcium 8.2 L Ferritin 320.0 H Lactate Dehydrogenase 391 H C-Reactive Protein 9.50 H Total Protein 5.9 L Albumin 3.2 L 07/09/20 07/09/20 07/09/20 11:56 17:49 23:39 WBC Lymph % (Auto) Lymph # (Auto) Seg Neuts % (Manual) Lymphocytes % (Manual) Seg Neutrophils # Seg Neutrophils # Man Lymphocytes # (Manual) ABG pO2 ABG HCO3 ABG O2 Saturation ABG Hemoglobin Oxyhemoglobin Carbon Dioxide BUN Glucose POC Glucose 156 H 119 H 145 H Calcium Ferritin Lactate Dehydrogenase C-Reactive Protein Total Protein Albumin 07/10/20 07/10/20 03:32 05:26 WBC Lymph % (Auto) Lymph # (Auto) Seg Neuts % (Manual) Lymphocytes % (Manual) Seg Neutrophils # Seg Neutrophils # Man Lymphocytes # (Manual) ABG pO2 75.7 L ABG HCO3 27.5 H ABG O2 Saturation ABG Hemoglobin 9.3 L Oxyhemoglobin 94.7 L Carbon Dioxide BUN Glucose POC Glucose 156 H Calcium Ferritin Lactate Dehydrogenase C-Reactive Protein Total Protein Albumin Chest x-ray: image reviewed (persistent bilateral infiltrates) Allied health notes reviewed: nursing
[2020-07-10] MEDS: MIDAZOLAM 100 MG in SODIUM CHLORIDE 0.9% 80 ML IV SCH (11:59)
[2020-07-10 13:36] LABS: Hematocrit 30.6 % (30.3-42.9); Hemoglobin 9.9 gm/dl (10.1-14.3); Mean Corpuscular HGB Conc 32 % (30-34); Mean Corpuscular Volume 92 fl (79-97); Platelet Count 192 K/mm3 (140-440); Red Blood Count 3.33 M/mm3 (3.65-5.03); Red Cell Distribution Width 14.5 % (13.2-15.2)
[2020-07-10 13:59] LABS: Alanine Aminotransferase 15 units/L (7-56); Blood Urea Nitrogen 21 mg/dL (7-17); Hemolysis Index 2
[2020-07-10 14:07] LABS: BUN/Creatinine Ratio 30
[2020-07-10 14:52] LABS: Band Neutrophils # (Manual) 0.3 K/mm3; Basophils % (Manual) 0 % (0.0-1.8); Eosinophils % (Manual) 0 % (0.0-4.3); Total Cells Counted 100
[2020-07-10 14:53] LABS: Platelet Estimate Consistent w Auto; RBC Morphology Normal
--- NOTE | 2020-07-10 16:46 | Progress Note ---
Assessment and Plan --Acute asthma exacerbation Solumedrol 60mg q 6 Oxygen supplementation as needed Continue montelukast Monitor oxygen saturations closely -- COVID-19 Tested positive for COVID-19 in [facility] Solumedrol 60q6, Remdesivir for 5 days Procalcitonin <0.05 ID on board follow ferritin, ldh, d-dimer levels -- Acute hypoxic respiratory failure Now intubated on 07/09/20 overnight From COVID-19 and asthma exacerbation Continue steroids Continue oxygen supplementation -- GERD (gastroesophageal reflux disease) cont Pantoprazole --SLE (systemic lupus erythematosus related syndrome) Continue home medications-hydroxychloroquine -- DVT prophylaxis Lovenox 30 mg twice daily -- Full code status The high probability of a clinically significant, sudden or life threatening deterioration of the [CVS, respiratory, [employer]] system(s) required my full and direct attention, intervention and personal management. The aggregate critical care time was [] minutes. This time is in addition to time spent performing reported procedures but includes the following: [x] Data Review and interpretation [x] Patient assessment and monitoring of vital signs [x] Documentation [x] Medication orders and management brief History: 50-year-old female with a past medical history of asthma, CHF, hypertension, and lupus complains of generalized body weakness, fever and shortness of breath. Patient states the symptoms started right after she was discharged from [facility] on 07/05. She has associated wheezing, fever, cough and she has been using her inhalers with no significant effect. She also has associated diarrhea. Of no te, she was hospitalized here in [facility] on 06/28 for asthma exacerbation and had a negative Covid test during the admission. She was treated and discharged. She presented to [facility] for further evaluation after discharge from here and over there, she was found to have positive COVID-19 test and she was placed on steroids and subsequently discharged on Eliquis prophylaxis for DVT. She states that she did not receive remdesivir during the admission. She was discharged from [facility] on 07/05. She went home and felt worse. She said that she passed out about 2 times. Due to persistent symptoms, she called EMS who brought her to [facility] for further evaluation. Daily course: 07/07. Patient seen and examined at bedside this morning. Patient is wheezing and slightly short of breath. Change steroids to Solu-Medrol 60 every 6. Added formoterol and budesonide. ID evaluation pending. Started patient on remdesivir as she is short of breath. 07/07. Placed on BIPAP this AM. Will need pulm evaluation. Solumedrol 60mg q6. STAT blood gas ordered. She will be transferred to [facility]. 07/08: Patient took oxygen off and attempts to go to the bathroom and subsequently became hypoxemic with sats down into the low 80s. Patient became weak short of breath. After that time patient had persistent coughing and cannot maintain sats until nonrebreather was placed. Patient is transferred to the ICU unit and monitored for respiratory failure possibly requiring intubation. 07/09: ID recommended for convalescent plasma, ordered. Patient intubated overnight. Continue to monitor clinically, scheduled lab, follow inflammatory markers 07/10: Wait for convalescent plasma transfusion, wean off from ventilator as tolerated Subjective Date of service: 07/10/20 Principal diagnosis: Ac hypoxemic resp failure; PNA; COVID-19 infxn; SLE; Asthma exacerbation Interval history: Patient seen and examined Patient remains intubated on mechanical ventilation Discussed with RN at the bedside, started on tube feeding Reviewed vitals, pending convalescent plasma transfusion Objective - Exam Narrative Exam: GENERAL: well-developed obese -[place] female lying on bed intubated and sedated HEENT: Normocephalic. Atraumatic. No conjunctival congestion or icterus. Patient has moist mucous membranes. NECK: Supple. Trachea midline. ET tube in place, intubated with mechanical ventilation CHEST/LUNGS: Diffuse expiratory wheezes, coarse breath sound bilaterally HEART/CARDIOVASCULAR: Regular in rate and rhythm. S1 and S2 positive. ABDOMEN: Abdomen is soft, nontender. Patient has normal bowel sounds. SKIN: There is no rash. Warm and dry. NEURO: Sedated MUSCULOSKELETAL: No joint effusion or tenderness. EXTRIMITY: No edema, no cyanosis or clubbing. PSYCH: Unable to assess - Constitutional Vitals: Vital Signs - 12hr 07/10/20 07/10/20 07/10/20 05:00 05:30 06:00 Temperature Pulse Rate 61 66 59 L Pulse Rate [ Bilateral Throughout] Respiratory 25 H 15 25 H Rate Respiratory Rate [Bilateral Throughout] Blood Pressure 114/62 112/67 118/66 O2 Sat by Pulse 93 94 94 Oximetry 07/10/20 07/10/20 07/10/20 06:30 07:00 07:30 Temperature Pulse Rate 56 L 62 62 Pulse Rate [ Bilateral Throughout] Respiratory 25 H 25 H 25 H Rate Respiratory Rate [Bilateral Throughout] Blood Pressure 112/66 119/65 109/61 O2 Sat by Pulse 95 90 91 Oximetry 07/10/20 07/10/20 07/10/20 07:58 08:00 08:31 Temperature 99.0 F Pulse Rate 59 L 58 L 58 L Pulse Rate [ 60 Bilateral Throughout] Respiratory 25 H 25 H Rate Respiratory 25 H Rate [Bilateral Throughout] Blood Pressure 119/65 131/78 110/58 O2 Sat by Pulse 98 93 96 Oximetry 07/10/20 07/10/20 07/10/20 09:01 09:30 10:00 Temperature Pulse Rate 61 62 59 L Pulse Rate [ Bilateral Throughout] Respiratory 16 25 H 25 H Rate Respiratory Rate [Bilateral Throughout] Blood Pressure 110/58 121/67 119/69 O2 Sat by Pulse 93 93 Oximetry 07/10/20 07/10/20 07/10/20 10:30 11:00 11:22 Temperature Pulse Rate 56 L 57 L 57 L Pulse Rate [ Bilateral Throughout] Respiratory 25 H 25 H Rate Respiratory Rate [Bilateral Throughout] Blood Pressure 130/73 119/67 118/67 O2 Sat by Pulse 94 94 95 Oximetry 07/10/20 07/10/20 07/10/20 11:24 11:30 12:00 Temperature Pulse Rate 58 L 59 L Pulse Rate [ 56 L Bilateral Throughout] Respiratory 25 H 25 H Rate Respiratory 25 H Rate [Bilateral Throughout] Blood Pressure 124/69 119/68 O2 Sat by Pulse 94 94 Oximetry 07/10/20 07/10/20 07/10/20 12:13 12:30 13:00 Temperature 99.3 F Pulse Rate 57 L 58 L Pulse Rate [ Bilateral Throughout] Respiratory 25 H 25 H Rate Respiratory Rate [Bilateral Throughout] Blood Pressure 116/62 113/63 O2 Sat by Pulse 94 94 Oximetry 07/10/20 07/10/20 07/10/20 13:30 14:00 14:55 Temperature Pulse Rate 59 L 57 L 59 L Pulse Rate [ Bilateral Throughout] Respiratory 25 H 25 H Rate Respiratory Rate [Bilateral Throughout] Blood Pressure 114/65 117/63 116/61 O2 Sat by Pulse 92 93 93 Oximetry 07/10/20 14:57 Temperature Pulse Rate Pulse Rate [ 55 L Bilateral Throughout] Respiratory Rate Respiratory 25 H Rate [Bilateral Throughout] Blood Pressure O2 Sat by Pulse Oximetry - Labs CBC & Chem 7: 07/12/20 04:00 07/12/20 04:00 Labs: Abnormal lab results 07/09/20 07/09/20 07/10/20 Range/Units 17:49 23:39 03:32 WBC (4.5-11.0) K/mm3 RBC (3.65-5.03) M/mm3 Hgb (10.1-14.3) gm/dl Seg Neuts % (Manual) (40.0-70.0) % Lymphocytes % (Manual) (13.4-35.0) % Seg Neutrophils # Man (1.8-7.7) K/mm3 Lymphocytes # (Manual) (1.2-5.4) K/mm3 ABG pO2 75.7 L (80.0-90.0) mm Hg ABG HCO3 27.5 H (20.0-26.0) mmol/L ABG Hemoglobin 9.3 L (12.0-16.0) gm/dl Oxyhemoglobin 94.7 L (95.0-99.0) % BUN (7-17) mg/dL Glucose (65-100) mg/dL POC Glucose 119 H 145 H (70-105) mg/dL Calcium (8.4-10.2) mg/dL Total Protein (6.3-8.2) g/dL Albumin (3.9-5) g/dL 07/10/20 07/10/20 07/10/20 Range/Units 05:26 11:22 12:10 WBC 14.1 H (4.5-11.0) K/mm3 RBC 3.33 L (3.65-5.03) M/mm3 Hgb 9.9 L (10.1-14.3) gm/dl Seg Neuts % (Manual) 89.0 H (40.0-70.0) % Lymphocytes % (Manual) 8.0 L (13.4-35.0) % Seg Neutrophils # Man 12.5 H (1.8-7.7) K/mm3 Lymphocytes # (Manual) 1.1 L (1.2-5.4) K/mm3 ABG pO2 (80.0-90.0) mm Hg ABG HCO3 (20.0-26.0) mmol/L ABG Hemoglobin (12.0-16.0) gm/dl Oxyhemoglobin (95.0-99.0) % BUN (7-17) mg/dL Glucose (65-100) mg/dL POC Glucose 156 H 148 H (70-105) mg/dL Calcium (8.4-10.2) mg/dL Total Protein (6.3-8.2) g/dL Albumin (3.9-5) g/dL 07/10/20 Range/Units 12:10 WBC (4.5-11.0) K/mm3 RBC (3.65-5.03) M/mm3 Hgb (10.1-14.3) gm/dl Seg Neuts % (Manual) (40.0-70.0) % Lymphocytes % (Manual) (13.4-35.0) % Seg Neutrophils # Man (1.8-7.7) K/mm3 Lymphocytes # (Manual) (1.2-5.4) K/mm3 ABG pO2 (80.0-90.0) mm Hg ABG HCO3 (20.0-26.0) mmol/L ABG Hemoglobin (12.0-16.0) gm/dl Oxyhemoglobin (95.0-99.0) % BUN 21 H (7-17) mg/dL Glucose 154 H (65-100) mg/dL POC Glucose (70-105) mg/dL Calcium 8.0 L (8.4-10.2) mg/dL Total Protein 5.4 L (6.3-8.2) g/dL Albumin 3.0 L (3.9-5) g/dL
[2020-07-10] MEDS: REMDESIVIR 100 MG in SODIUM CHLORIDE 0.9% 250ML 250 ML IV SCH (21:39)
[2020-07-10] MEDS: MONTELUKAST 10 MG TAB PO SCH (21:40)
[2020-07-10] MEDS: SODIUM CHLORIDE 0.9% 50 ML IVPB IV SCH (21:40)
[2020-07-11] MEDS: ALBUTEROL 2.5 MG/3 ML NEBU IH SCH ×6 (00:06→20:46)
[2020-07-11] MEDS: fentaNYL DRIP Premix 2,000 MCG/100 ML BAG IV SCH ×4 (04:02→21:02)
[2020-07-11] MEDS: MIDAZOLAM 100 MG in SODIUM CHLORIDE 0.9% 80 ML IV SCH (04:03)
[2020-07-11 04:45] LABS: ABG Base Excess 2.2 mmol/L (-2.0-3.0); ABG HCO3 28.5 mmol/L (20.0-26.0); ABG Methemoglobin 0.4 % (0.0-1.5); ABG Oxygen Saturation 97.1 % (95.0-99.0); ABG PH 7.348 pH Units (7.350-7.450); ABG PO2 93.6 mm Hg (80.0-90.0)
[2020-07-11] MEDS: BENZONATATE 100 MG CAP PO SCH (06:13)
[2020-07-11] MEDS: methylPREDNISolone Sod Succinate 125 MG/2 ML INJ IV SCH ×3 (06:13→17:11)
--- NOTE | 2020-07-11 06:43 | Progress Note ---
Assessment and Plan Cultures: Blood cultures 07/07/2020 no growth today SARS COV2- IgG negative Sputum culture 07/08/2020 usual respiratory kerwin A/P: 50-year-old female with CHF, asthma, hypertension, lupus was admitted to the hospital with complaints of fever, shortness of breath. Of note, she was seen last week due to an asthma exacerbation when her SARS-CoV-2 PCR and IgG were both negative. She was treated with steroids. She reportedly then went to [facility] and tested positive for COVID-19 and was discharged from the hospital on 07/05/2020.: #Sepsis with septic shock: Patient placed on Levophed, noted low-grade fever ? Likely secondary to COVID-19 infection, repeat procalcitonin normal. #Acute asthma exacerbation: on nebs and steroids. #Acute hypoxic respiratory failure: Remains intubated FiO2 45% PEEP 10 #Critical COVID diagnosis at [place] [facility]: Repeat chest x-ray with bilateral pneumonia. D-dimer remains normal. Ferritin mildly elevated. #Lupus, immunocompromised host: On Plaquenil. Recs: -Repeat blood culture, sputum culture, UA and urine culture given fever and hypotension -Start cefepime 2 g IV once twice daily for now -Check MRSA PCR -SARS-CoV-2 IgG is negative, patient may benefit from COVID-19 plasma -Continue remdesivir total 5 days -day 4 of 5 -Continue steroids -prophylactic anticoagulation based on d-dimer -trend ferritin, LDH, d-dimer, CRP every 2-3 days for risk stratification and to assess disease progression -Monitor fever will follow Eneida Quiñones MD [facility] ([facility]) Office [phone] Subjective Date of service: 07/11/20 Principal diagnosis: Ac hypoxemic resp failure; PNA; COVID-19 infxn; SLE; Asthma exacerbation Interval history: Patient remains intubated, low-grade fever noted, pressors noted Objective - Exam Narrative Exam: General appearance: Alert intubated Eyes: anicteric sclerae, moist conjunctivae; no lid-lag; PERRLA HENT: Normocephalic, Atraumatic; normal external ears, nares open, oropharynx endotracheal tube in place Neck: supple, tracheal midline, no JVD Lungs: Scattered rhonchi bilaterally CV: RRR no murmur Abdomen: Soft, non-tender; no masses or hepatosplenomegaly Extremities: no edema, no cyanosis Skin: No rash. Psych: no agitated Neuro: alert intubated - Constitutional Vitals: Vital Signs Temp Pulse Resp BP Pulse Ox 100.1 F H 61 25 H 106/64 87 07/11/20 04:00 07/11/20 06:00 07/11/20 06:00 07/11/20 06:00 07/11/20 06:00 Temperature -Last 24 Hours Temperature 100.1 F Temperature 100.1 F Temperature 100.3 F Temperature 99.3 F Temperature 99.0 F - Labs CBC & Chem 7: 07/11/20 09:11 07/11/20 09:11 Labs: Abnormal lab results 07/10/20 07/10/20 07/10/20 Range/Units 11:22 12:10 12:10 WBC 14.1 H (4.5-11.0) K/mm3 RBC 3.33 L (3.65-5.03) M/mm3 Hgb 9.9 L (10.1-14.3) gm/dl Seg Neuts % (Manual) 89.0 H (40.0-70.0) % Lymphocytes % (Manual) 8.0 L (13.4-35.0) % Seg Neutrophils # Man 12.5 H (1.8-7.7) K/mm3 Lymphocytes # (Manual) 1.1 L (1.2-5.4) K/mm3 ABG pH (7.350-7.450) pH Units ABG pO2 (80.0-90.0) mm Hg ABG HCO3 (20.0-26.0) mmol/L ABG Hemoglobin (12.0-16.0) gm/dl BUN 21 H (7-17) mg/dL Glucose 154 H (65-100) mg/dL POC Glucose 148 H (70-105) mg/dL Calcium 8.0 L (8.4-10.2) mg/dL Total Protein 5.4 L (6.3-8.2) g/dL Albumin 3.0 L (3.9-5) g/dL 07/10/20 07/10/20 07/11/20 Range/Units 18:20 23:51 04:05 WBC (4.5-11.0) K/mm3 RBC (3.65-5.03) M/mm3 Hgb (10.1-14.3) gm/dl Seg Neuts % (Manual) (40.0-70.0) % Lymphocytes % (Manual) (13.4-35.0) % Seg Neutrophils # Man (1.8-7.7) K/mm3 Lymphocytes # (Manual) (1.2-5.4) K/mm3 ABG pH 7.348 L (7.350-7.450) pH Units ABG pO2 93.6 H (80.0-90.0) mm Hg ABG HCO3 28.5 H (20.0-26.0) mmol/L ABG Hemoglobin 10.1 L (12.0-16.0) gm/dl BUN (7-17) mg/dL Glucose (65-100) mg/dL POC Glucose 181 H 116 H (70-105) mg/dL Calcium (8.4-10.2) mg/dL Total Protein (6.3-8.2) g/dL Albumin (3.9-5) g/dL 07/11/20 Range/Units 05:43 WBC (4.5-11.0) K/mm3 RBC (3.65-5.03) M/mm3 Hgb (10.1-14.3) gm/dl Seg Neuts % (Manual) (40.0-70.0) % Lymphocytes % (Manual) (13.4-35.0) % Seg Neutrophils # Man (1.8-7.7) K/mm3 Lymphocytes # (Manual) (1.2-5.4) K/mm3 ABG pH (7.350-7.450) pH Units ABG pO2 (80.0-90.0) mm Hg ABG HCO3 (20.0-26.0) mmol/L ABG Hemoglobin (12.0-16.0) gm/dl BUN (7-17) mg/dL Glucose (65-100) mg/dL POC Glucose 132 H (70-105) mg/dL Calcium (8.4-10.2) mg/dL Total Protein (6.3-8.2) g/dL Albumin (3.9-5) g/dL
[2020-07-11] MEDS: ARFORMOTEROL 15 MCG/2 ML NEBU IH SCH ×2 (07:30→20:45)
[2020-07-11] MEDS: BUDESONIDE 0.5 MG/2 ML NEBU IH SCH ×2 (07:30→20:46)
[2020-07-11 09:27] LABS: Hematocrit 31.4 % (30.3-42.9); Hemoglobin 10.1 gm/dl (10.1-14.3); Mean Corpuscular HGB Conc 32 % (30-34); Mean Corpuscular Volume 91 fl (79-97); Platelet Count 205 K/mm3 (140-440); Red Blood Count 3.44 M/mm3 (3.65-5.03); Red Cell Distribution Width 14.2 % (13.2-15.2)
[2020-07-11] MEDS: HYDROXYCHLOROQUINE 200 MG TAB PO SCH (09:40)
[2020-07-11] MEDS: ASPIRIN 81 MG TAB CHEW PO SCH (09:40)
[2020-07-11] MEDS: ENOXAPARIN 30 MG/0.3 ML INJ SUB-Q SCH ×2 (09:40→21:08)
[2020-07-11] MEDS: ASCORBIC ACID 500 MG TAB PO SCH ×2 (09:40→21:07)
[2020-07-11] MEDS: MIDAZOLAM 2 MG/2 ML INJ IV PRN (09:41)
[2020-07-11] MEDS: fentaNYL 100 MCG/2 ML INJ IV PRN (09:41)
[2020-07-11] MEDS: ZINC SULFATE 220 MG CAP PO SCH ×2 (09:43→21:07)
[2020-07-11] MEDS: VENLAFAXINE 37.5 MG TAB PO SCH (09:44)
[2020-07-11] MEDS: CEFEPIME/NS 2 GM/100 ML 2 GM/100 ML BAG IV SCH ×2 (09:44→21:08)
[2020-07-11] MEDS: LANSOPRAZOLE 30 MG SOLUTAB FEEDTUBE SCH (09:44)
[2020-07-11 09:53] LABS: Alanine Aminotransferase 18 units/L (7-56); Blood Urea Nitrogen 22 mg/dL (7-17); Calcium 7.8 mg/dL (8.4-10.2); Hemolysis Index 0
[2020-07-11 09:57] LABS: BUN/Creatinine Ratio 31
[2020-07-11 10:25] LABS: Bilirubin,Urine NEG (Negative); Blood,Urine NEG (Negative); Color,Urine Yellow (Yellow); Mucus,Urine FEW /HPF; Protein,Urine <15 mg/dL mg/dL (Negative)
[2020-07-11 11:28] LABS: Band Neutrophils # (Manual) 0.2 K/mm3; Basophils % (Manual) 0 % (0.0-1.8); Eosinophils % (Manual) 0 % (0.0-4.3); Myelocytes # (Manual) 0.2 K/mm3; Platelet Estimate Consistent w Auto; RBC Morphology Normal; Total Cells Counted 100
--- NOTE | 2020-07-11 12:40 | Progress Note ---
Assessment and Plan Acute hypoxemic respiratory failure, now on MVS Bilateral pneumonia, left greater than right lungs. COVID-19 infection. History of congestive heart failure. History of lupus erythematosus. Leukocytosis. Tobacco use disorder. Acute asthma exacerbation. History of hypertension. Obesity - increased peep to 12 - reduced FiO2 to 45% - keep set rate at 25 - begin Seroquel 200 mg p.o. bid - continue to wean supplemental oxygen for target O2 sat's > 92% acutely; - continue airborne and contact isolation - follow repeat COVID-19 testing - continue Zinc & Vit C supplementaion - complete Remdesivir - empiric AB's coverage per ID rec's otherwise - continue systemic steroids for Asthma / severe COVID infection - continue Daily SAT and SBT assessment as tolerated - VAP bundle addressed - continue lung protective strategies - continue bronchodilators with pulmonary hygiene per RT - wean per pulmonary driven protocols otherwise - accuchecks with glycemic control per SSI (While critically ill target blood glucose of 140-180 mg/dL; avoid hypoglycemia) - sedation prn for target RASS -1 to -2 - avoid nephrotoxins, renally dose all medications - continue to avoid benzodiazepine's, reduce the possibility of delirium - prn analgesia per CPOT score - Maintenance of sleep-wake cycle, avoid delirium - continue enteral nutritional support at goal rate as tolerated - G.I. & VTE prophylaxis - PT/OT/ROM exercises - continue mobility protocols for pressure ulcer prophylaxis - Monitor hemodynamics closely - continue other care per attending / other consultants - discharge planning ongoing concurrently .... Re-evaluate in am & prn CONDITION: CRITICAL PROGNOSIS: GUARDED CODE STATUS: FULL CODE The high probability of a clinically significant, sudden or life-threatening deterioration of the [respiratory, cardiovascular & neurologic] system(s) required my full and direct attention, intervention and personal management. The aggregate critical care time was [36] minutes without overlap. Time includes spent on; [x] Data Review and interpretation [x] Patient assessment and monitoring of vital signs [x] Documentation [x] Medication orders and management Subjective Date of service: 07/11/20 Principal diagnosis: Ac hypoxemic resp failure; PNA; COVID-19 infxn; SLE; Asthma exacerbation Interval history: Patient is seen today for: Acute hypoxemic respiratory failure; Bilateral pneumonia; COVID-19 infection; H/O CHF; SLE; Acute asthma exacerbation. HTN; Obesity Seen and examined at bedside; 24hour events reviewed; nursing and respiratory care staff consulted; no adverse overnight events reported to me; resting peacefully in bed; pO2 improved but still labile and FiO2 now up to 50%; peep remains at 10 cm H2O; maxed out on versed and fentanyl but still answers appropriately but with anxiety and intermittent agitation; No N/V/F/C Objective Vital Signs - 12hr 07/11/20 07/11/20 07/11/20 01:00 01:30 02:00 Temperature Pulse Rate 64 62 62 Pulse Rate [ Bilateral Throughout] Pulse Rate [ From Monitor] Respiratory 25 H 25 H 25 H Rate Respiratory Rate [Bilateral Throughout] Blood Pressure 110/61 115/62 109/62 O2 Sat by Pulse 96 94 91 Oximetry 07/11/20 07/11/20 07/11/20 02:30 03:00 03:30 Temperature Pulse Rate 60 59 L 57 L Pulse Rate [ Bilateral Throughout] Pulse Rate [ From Monitor] Respiratory 25 H 25 H 25 H Rate Respiratory Rate [Bilateral Throughout] Blood Pressure 112/62 112/64 115/64 O2 Sat by Pulse 94 95 95 Oximetry 07/11/20 07/11/20 07/11/20 04:00 04:30 04:53 Temperature 100.1 F H Pulse Rate 65 64 60 Pulse Rate [ Bilateral Throughout] Pulse Rate [ 61 From Monitor] Respiratory 25 H 25 H Rate Respiratory Rate [Bilateral Throughout] Blood Pressure 109/56 106/55 103/56 O2 Sat by Pulse 94 94 94 Oximetry 07/11/20 07/11/20 07/11/20 05:00 05:30 06:00 Temperature Pulse Rate 61 59 L 61 Pulse Rate [ Bilateral Throughout] Pulse Rate [ From Monitor] Respiratory 25 H 25 H 25 H Rate Respiratory Rate [Bilateral Throughout] Blood Pressure 107/58 109/61 106/64 O2 Sat by Pulse 93 92 87 Oximetry 07/11/20 07/11/20 07/11/20 06:30 07:00 07:30 Temperature Pulse Rate 60 62 60 Pulse Rate [ 62 Bilateral Throughout] Pulse Rate [ From Monitor] Respiratory 18 25 H 23 Rate Respiratory 25 H Rate [Bilateral Throughout] Blood Pressure 107/52 103/56 115/65 O2 Sat by Pulse 89 86 95 Oximetry 07/11/20 07/11/20 07/11/20 08:00 08:01 08:30 Temperature 99.7 F H Pulse Rate 66 70 Pulse Rate [ Bilateral Throughout] Pulse Rate [ 61 From Monitor] Respiratory 25 H 23 15 Rate Respiratory Rate [Bilateral Throughout] Blood Pressure 107/52 122/65 O2 Sat by Pulse 96 94 84 Oximetry 07/11/20 07/11/20 07/11/20 09:00 09:30 10:00 Temperature Pulse Rate 66 70 61 Pulse Rate [ Bilateral Throughout] Pulse Rate [ From Monitor] Respiratory 25 H 25 H 25 H Rate Respiratory Rate [Bilateral Throughout] Blood Pressure 126/68 127/70 106/52 O2 Sat by Pulse 95 92 Oximetry 07/11/20 07/11/20 07/11/20 10:30 11:00 11:27 Temperature Pulse Rate 60 59 L 57 L Pulse Rate [ 57 L Bilateral Throughout] Pulse Rate [ From Monitor] Respiratory 25 H 25 H Rate Respiratory 25 H Rate [Bilateral Throughout] Blood Pressure 111/61 111/61 114/65 O2 Sat by Pulse 93 93 Oximetry 07/11/20 07/11/20 11:30 12:00 Temperature 98.3 F Pulse Rate 57 L 73 Pulse Rate [ Bilateral Throughout] Pulse Rate [ 63 From Monitor] Respiratory 25 H 9 L Rate Respiratory Rate [Bilateral Throughout] Blood Pressure 128/72 130/70 O2 Sat by Pulse 95 83 L Oximetry Constitutional: no acute distress, other (middle aged obese female with mildly increased respiratory effort at rest on MVS) Eyes: non-icteric ENT: oropharynx moist, other (ETT 24 cm YANET) Neck: supple, no lymphadenopathy, no JVD Effort: mildly labored Ascultation: Bilateral: diminished breath sounds, rhonchi Percussion: Bilateral: not dull Cardiovascular: regular rate and rhythm Gastrointestinal: normoactive bowel sounds, soft, non-tender, non-distended Integumentary: normal Extremities: no cyanosis, no edema, pulses normal, no ischemia or petechiae Neurologic: normal mental status, non-focal exam, pupils equal and round, motor strength normal and Psychiatric: other (sedated) CBC and BMP: 07/11/20 09:11 07/11/20 09:11 ABG, PT/INR, D-dimer: ABG ABG pH 7.348 pH Units (7.350-7.450) L 07/11/20 04:05 ABG pCO2 53.0 mm Hg 07/11/20 04:05 ABG pO2 93.6 mm Hg (80.0-90.0) H 07/11/20 04:05 ABG O2 Saturation 97.1 % (95.0-99.0) 07/11/20 04:05 PT/INR, D-dimer D-Dimer 360.61 ng/mlDDU (0-234) H 07/11/20 09:11 Abnormal lab findings: Abnormal Labs 07/06/20 07/06/20 07/07/20 05:24 17:16 04:50 WBC 13.5 H 12.7 H RBC Hgb Lymph % (Auto) Lymph # (Auto) Seg Neuts % (Manual) 86.0 H 87.0 H Lymphocytes % (Manual) 6.0 L 9.0 L Seg Neutrophils # Seg Neutrophils # Man 11.6 H 11.0 H Lymphocytes # (Manual) 0.8 L 1.1 L D-Dimer ABG pH ABG pO2 ABG HCO3 ABG O2 Saturation ABG Hemoglobin Oxyhemoglobin Chloride Carbon Dioxide BUN Glucose POC Glucose Calcium Ferritin Lactate Dehydrogenase 242 H C-Reactive Protein 7.30 H Total Protein Albumin 07/07/20 07/07/20 07/07/20 04:50 14:22 14:22 WBC RBC Hgb Lymph % (Auto) Lymph # (Auto) Seg Neuts % (Manual) Lymphocytes % (Manual) Seg Neutrophils # Seg Neutrophils # Man Lymphocytes # (Manual) D-Dimer ABG pH ABG pO2 ABG HCO3 ABG O2 Saturation ABG Hemoglobin Oxyhemoglobin Chloride Carbon Dioxide BUN 18 H Glucose 138 H POC Glucose Calcium Ferritin 228.2 H Lactate Dehydrogenase 277 H C-Reactive Protein Total Protein 5.9 L Albumin 3.4 L 07/08/20 07/08/20 07/08/20 11:18 12:57 16:13 WBC RBC Hgb Lymph % (Auto) Lymph # (Auto) Seg Neuts % (Manual) Lymphocytes % (Manual) Seg Neutrophils # Seg Neutrophils # Man Lymphocytes # (Manual) D-Dimer ABG pH ABG pO2 39.3 L* ABG HCO3 ABG O2 Saturation 76.8 L ABG Hemoglobin Oxyhemoglobin 75.3 L Chloride Carbon Dioxide 20 L D BUN Glucose 135 H POC Glucose 106 H Calcium 8.0 L Ferritin Lactate Dehydrogenase C-Reactive Protein Total Protein Albumin 07/08/20 07/08/20 07/09/20 17:04 18:45 04:00 WBC 15.6 H RBC Hgb Lymph % (Auto) 4.7 L Lymph # (Auto) 0.7 L Seg Neuts % (Manual) Lymphocytes % (Manual) Seg Neutrophils # 14.2 H Seg Neutrophils # Man Lymphocytes # (Manual) D-Dimer ABG pH ABG pO2 181.8 H ABG HCO3 ABG O2 Saturation 99.1 H ABG Hemoglobin 11.4 L Oxyhemoglobin Chloride Carbon Dioxide BUN Glucose POC Glucose 117 H Calcium Ferritin Lactate Dehydrogenase C-Reactive Protein Total Protein Albumin 07/09/20 07/09/20 07/09/20 04:00 04:00 04:49 WBC RBC Hgb Lymph % (Auto) Lymph # (Auto) Seg Neuts % (Manual) Lymphocytes % (Manual) Seg Neutrophils # Seg Neutrophils # Man Lymphocytes # (Manual) D-Dimer ABG pH ABG pO2 ABG HCO3 26.2 H ABG O2 Saturation ABG Hemoglobin 11.2 L Oxyhemoglobin 94.9 L Chloride Carbon Dioxide BUN Glucose 158 H POC Glucose Calcium 8.2 L Ferritin 320.0 H Lactate Dehydrogenase 391 H C-Reactive Protein 9.50 H Total Protein 5.9 L Albumin 3.2 L 07/09/20 07/09/20 07/09/20 11:56 17:49 23:39 WBC RBC Hgb Lymph % (Auto) Lymph # (Auto) Seg Neuts % (Manual) Lymphocytes % (Manual) Seg Neutrophils # Seg Neutrophils # Man Lymphocytes # (Manual) D-Dimer ABG pH ABG pO2 ABG HCO3 ABG O2 Saturation ABG Hemoglobin Oxyhemoglobin Chloride Carbon Dioxide BUN Glucose POC Glucose 156 H 119 H 145 H Calcium Ferritin Lactate Dehydrogenase C-Reactive Protein Total Protein Albumin 07/10/20 07/10/20 07/10/20 03:32 05:26 11:22 WBC RBC Hgb Lymph % (Auto) Lymph # (Auto) Seg Neuts % (Manual) Lymphocytes % (Manual) Seg Neutrophils # Seg Neutrophils # Man Lymphocytes # (Manual) D-Dimer ABG pH ABG pO2 75.7 L ABG HCO3 27.5 H ABG O2 Saturation ABG Hemoglobin 9.3 L Oxyhemoglobin 94.7 L Chloride Carbon Dioxide BUN Glucose POC Glucose 156 H 148 H Calcium Ferritin Lactate Dehydrogenase C-Reactive Protein Total Protein Albumin 11/11/20 11/11/20 11/11/20 12:10 12:10 18:20 WBC 14.1 H RBC 3.33 L Hgb 9.9 L Lymph % (Auto) Lymph # (Auto) Seg Neuts % (Manual) 89.0 H Lymphocytes % (Manual) 8.0 L Seg Neutrophils # Seg Neutrophils # Man 12.5 H Lymphocytes # (Manual) 1.1 L D-Dimer ABG pH ABG pO2 ABG HCO3 ABG O2 Saturation ABG Hemoglobin Oxyhemoglobin Chloride Carbon Dioxide BUN 21 H Glucose 154 H POC Glucose 181 H Calcium 8.0 L Ferritin Lactate Dehydrogenase C-Reactive Protein Total Protein 5.4 L Albumin 3.0 L 07/10/20 07/11/20 07/11/20 23:51 04:05 05:43 WBC RBC Hgb Lymph % (Auto) Lymph # (Auto) Seg Neuts % (Manual) Lymphocytes % (Manual) Seg Neutrophils # Seg Neutrophils # Man Lymphocytes # (Manual) D-Dimer ABG pH 7.348 L ABG pO2 93.6 H ABG HCO3 28.5 H ABG O2 Saturation ABG Hemoglobin 10.1 L Oxyhemoglobin Chloride Carbon Dioxide BUN Glucose POC Glucose 116 H 132 H Calcium Ferritin Lactate Dehydrogenase C-Reactive Protein Total Protein Albumin 07/11/20 07/11/20 07/11/20 09:11 09:11 09:11 WBC 15.8 H RBC 3.44 L Hgb Lymph % (Auto) Lymph # (Auto) Seg Neuts % (Manual) 92.0 H Lymphocytes % (Manual) 4.0 L Seg Neutrophils # Seg Neutrophils # Man 14.5 H Lymphocytes # (Manual) 0.6 L D-Dimer 360.61 H ABG pH ABG pO2 ABG HCO3 ABG O2 Saturation ABG Hemoglobin Oxyhemoglobin Chloride 107.1 H Carbon Dioxide BUN 22 H Glucose 149 H POC Glucose Calcium 7.8 L Ferritin Lactate Dehydrogenase 483 H C-Reactive Protein 2.30 H Total Protein 4.9 L Albumin 3.0 L 07/11/20 07/11/20 09:11 12:16 WBC RBC Hgb Lymph % (Auto) Lymph # (Auto) Seg Neuts % (Manual) Lymphocytes % (Manual) Seg Neutrophils # Seg Neutrophils # Man Lymphocytes # (Manual) D-Dimer ABG pH ABG pO2 ABG HCO3 ABG O2 Saturation ABG Hemoglobin Oxyhemoglobin Chloride Carbon Dioxide BUN Glucose POC Glucose 157 H Calcium Ferritin 371.2 H Lactate Dehydrogenase C-Reactive Protein Total Protein Albumin Chest x-ray: pending Allied health notes reviewed: nursing
[2020-07-11] MEDS ORDERED: QUEtiapine 200 MG TAB PO STA (16:58)
[2020-07-11] MEDS: MONTELUKAST 10 MG TAB PO SCH (21:07)
[2020-07-11] MEDS: QUEtiapine 200 MG TAB PO SCH (21:08)
--- NOTE | 2020-07-11 22:21 | Progress Note ---
Assessment and Plan --Acute asthma exacerbation Solumedrol 60mg q 6 Oxygen supplementation as needed Continue montelukast Monitor oxygen saturations closely -- COVID-19 Tested positive for COVID-19 in [place] Solumedrol 60q6, Remdesivir for 5 days Procalcitonin <0.05 ID on board follow ferritin, ldh, d-dimer levels -- Acute hypoxic respiratory failure Now intubated on 07/09/20 overnight From COVID-19 and asthma exacerbation Continue steroids Continue oxygen supplementation -- GERD (gastroesophageal reflux disease) cont Pantoprazole --SLE (systemic lupus erythematosus related syndrome) Continue home medications-hydroxychloroquine -- DVT prophylaxis Lovenox 30 mg twice daily -- Full code status The high probability of a clinically significant, sudden or life threatening deterioration of the [CVS, respiratory, [employer]ATING MACHINE [employer]ER] system(s) required my full and direct attention, intervention and personal management. The aggregate critical care time was [] minutes. This time is in addition to time spent performing reported procedures but includes the following: [x] Data Review and interpretation [x] Patient assessment and monitoring of vital signs [x] Documentation [x] Medication orders and management brief History: 50-year-old female with a past medical history of asthma, CHF, hypertension, and lupus complains of generalized body weakness, fever and shortness of breath. Patient states the symptoms started right after she was discharged from [place] on 07/05. She has associated wheezing, fever, cough and she has been using her inhalers with no significant effect. She also has associated diarrhea. Of no te, she was hospitalized here in [facility] on 06/28 for asthma exacerbation and had a negative Covid test during the admission. She was treated and discharged. She presented to [place] for further evaluation after discharge from here and over there, she was found to have positive COVID-19 test and she was placed on steroids and subsequently discharged on Eliquis prophylaxis for DVT. She states that she did not receive remdesivir during the admission. She was discharged from [place] on 07/05. She went home and felt worse. She said that she passed out about 2 times. Due to persistent symptoms, she called EMS who brought her to [facility] for further evaluation. Daily course: 07/07. Patient seen and examined at bedside this morning. Patient is wheezing and slightly short of breath. Change steroids to Solu-Medrol 60 every 6. Added formoterol and budesonide. ID evaluation pending. Started patient on remdesivir as she is short of breath. 07/07. Placed on BIPAP this AM. Will need pulm evaluation. Solumedrol 60mg q6. STAT blood gas ordered. She will be transferred to [facility]. 07/08: Patient took oxygen off and attempts to go to the bathroom and subsequently became hypoxemic with sats down into the low 80s. Patient became weak short of breath. After that time patient had persistent coughing and cannot maintain sats until nonrebreather was placed. Patient is transferred to the ICU unit and monitored for respiratory failure possibly requiring intubation. 07/09: ID recommended for convalescent plasma, ordered. Patient intubated overnight. Continue to monitor clinically, scheduled lab, follow inflammatory markers 07/10: Wait for convalescent plasma transfusion, wean off from ventilator as tolerated 07/11: Called patient's daughter and updated. Continue to wean off vent as tolerated, continue tube feeding, monitor vital sign CBC BMP daily. Subjective Date of service: 07/11/20 Principal diagnosis: Ac hypoxemic resp failure; PNA; COVID-19 infxn; SLE; Asthma exacerbation Interval history: Patient seen and examined Patient remains intubated on mechanical ventilation Discussed with RN at the bedside, started on tube feeding Reviewed vitals, discussed with daughter by phone Objective - Exam Narrative Exam: GENERAL: well-developed obese -Russian female lying on bed intubated and sedated HEENT: Normocephalic. Atraumatic. No conjunctival congestion or icterus. Patient has moist mucous membranes. NECK: Supple. Trachea midline. ET tube in place, intubated with mechanical ventilation CHEST/LUNGS: Diffuse expiratory wheezes, coarse breath sound bilaterally HEART/CARDIOVASCULAR: Regular in rate and rhythm. S1 and S2 positive. ABDOMEN: Abdomen is soft, nontender. Patient has normal bowel sounds. SKIN: There is no rash. Warm and dry. NEURO: Sedated MUSCULOSKELETAL: No joint effusion or tenderness. EXTRIMITY: No edema, no cyanosis or clubbing. PSYCH: Unable to assess - Constitutional Vitals: Vital Signs - 12hr 07/11/20 07/11/20 07/11/20 10:30 11:00 11:27 Temperature Pulse Rate 60 59 L 57 L Pulse Rate [ 57 L Bilateral Throughout] Pulse Rate [ From Monitor] Respiratory 25 H 25 H Rate Respiratory 25 H Rate [Bilateral Throughout] Blood Pressure 111/61 111/61 114/65 O2 Sat by Pulse 93 93 Oximetry 07/11/20 07/11/20 07/11/20 11:30 12:00 12:30 Temperature 98.3 F Pulse Rate 57 L 59 L 60 Pulse Rate [ Bilateral Throughout] Pulse Rate [ 63 From Monitor] Respiratory 25 H 9 L 25 H Rate Respiratory Rate [Bilateral Throughout] Blood Pressure 128/72 130/70 116/69 O2 Sat by Pulse 95 83 L 98 Oximetry 07/11/20 07/11/20 07/11/20 13:00 13:30 14:00 Temperature Pulse Rate 64 60 60 Pulse Rate [ Bilateral Throughout] Pulse Rate [ From Monitor] Respiratory 25 H 25 H 25 H Rate Respiratory Rate [Bilateral Throughout] Blood Pressure 127/71 121/68 123/70 O2 Sat by Pulse 95 94 94 Oximetry 07/11/20 07/11/20 07/11/20 14:30 15:01 15:30 Temperature Pulse Rate 58 L 61 62 Pulse Rate [ Bilateral Throughout] Pulse Rate [ From Monitor] Respiratory 25 H 25 H 25 H Rate Respiratory Rate [Bilateral Throughout] Blood Pressure 118/69 137/78 133/79 O2 Sat by Pulse 93 92 93 Oximetry 07/11/20 07/11/20 07/11/20 15:59 16:00 16:30 Temperature 98.4 F Pulse Rate 61 60 57 L Pulse Rate [ Bilateral Throughout] Pulse Rate [ 60 From Monitor] Respiratory 25 H 25 H Rate Respiratory Rate [Bilateral Throughout] Blood Pressure 137/78 139/78 123/71 O2 Sat by Pulse 94 95 93 Oximetry 07/11/20 07/11/20 07/11/20 16:51 17:00 17:30 Temperature Pulse Rate 58 L 61 Pulse Rate [ 67 Bilateral Throughout] Pulse Rate [ From Monitor] Respiratory 14 25 H Rate Respiratory 25 H Rate [Bilateral Throughout] Blood Pressure 125/70 132/74 O2 Sat by Pulse 81 L 95 Oximetry 07/11/20 07/11/20 07/11/20 18:00 18:30 19:00 Temperature Pulse Rate 59 L 58 L 55 L Pulse Rate [ Bilateral Throughout] Pulse Rate [ From Monitor] Respiratory 25 H 25 H 25 H Rate Respiratory Rate [Bilateral Throughout] Blood Pressure 112/63 112/64 120/67 O2 Sat by Pulse 93 92 93 Oximetry 07/11/20 07/11/20 07/11/20 19:30 20:00 20:45 Temperature 98.4 F Pulse Rate 56 L 54 L 53 L Pulse Rate [ Bilateral Throughout] Pulse Rate [ From Monitor] Respiratory 25 H 25 H Rate Respiratory Rate [Bilateral Throughout] Blood Pressure 127/72 129/74 139/77 O2 Sat by Pulse 94 93 95 Oximetry 07/11/20 20:46 Temperature Pulse Rate Pulse Rate [ 56 L Bilateral Throughout] Pulse Rate [ From Monitor] Respiratory Rate Respiratory 25 H Rate [Bilateral Throughout] Blood Pressure O2 Sat by Pulse Oximetry - Labs CBC & Chem 7: 07/12/20 04:00 07/12/20 04:00 Labs: Abnormal lab results 07/10/20 07/11/20 07/11/20 Range/Units 23:51 04:05 05:43 WBC (4.5-11.0) K/mm3 RBC (3.65-5.03) M/mm3 Seg Neuts % (Manual) (40.0-70.0) % Lymphocytes % (Manual) (13.4-35.0) % Seg Neutrophils # Man (1.8-7.7) K/mm3 Lymphocytes # (Manual) (1.2-5.4) K/mm3 D-Dimer (0-234) ng/mlDDU ABG pH 7.348 L (7.350-7.450) pH Units ABG pO2 93.6 H (80.0-90.0) mm Hg ABG HCO3 28.5 H (20.0-26.0) mmol/L ABG Hemoglobin 10.1 L (12.0-16.0) gm/dl Chloride (98-107) mmol/L BUN (7-17) mg/dL Glucose (65-100) mg/dL POC Glucose 116 H 132 H (70-105) mg/dL Calcium (8.4-10.2) mg/dL Ferritin (10.0-200.0) ng/mL Lactate Dehydrogenase (91-180) units/L C-Reactive Protein (0.00-1.30) mg/dL Total Protein (6.3-8.2) g/dL Albumin (3.9-5) g/dL 07/11/20 07/11/20 07/11/20 Range/Units 09:11 09:11 09:11 WBC 15.8 H (4.5-11.0) K/mm3 RBC 3.44 L (3.65-5.03) M/mm3 Seg Neuts % (Manual) 92.0 H (40.0-70.0) % Lymphocytes % (Manual) 4.0 L (13.4-35.0) % Seg Neutrophils # Man 14.5 H (1.8-7.7) K/mm3 Lymphocytes # (Manual) 0.6 L (1.2-5.4) K/mm3 D-Dimer 360.61 H (0-234) ng/mlDDU ABG pH (7.350-7.450) pH Units ABG pO2 (80.0-90.0) mm Hg ABG HCO3 (20.0-26.0) mmol/L ABG Hemoglobin (12.0-16.0) gm/dl Chloride 107.1 H (98-107) mmol/L BUN 22 H (7-17) mg/dL Glucose 149 H (65-100) mg/dL POC Glucose (70-105) mg/dL Calcium 7.8 L (8.4-10.2) mg/dL Ferritin (10.0-200.0) ng/mL Lactate Dehydrogenase 483 H (91-180) units/L C-Reactive Protein 2.30 H (0.00-1.30) mg/dL Total Protein 4.9 L (6.3-8.2) g/dL Albumin 3.0 L (3.9-5) g/dL 07/11/20 07/11/20 07/11/20 Range/Units 09:11 12:16 17:55 WBC (4.5-11.0) K/mm3 RBC (3.65-5.03) M/mm3 Seg Neuts % (Manual) (40.0-70.0) % Lymphocytes % (Manual) (13.4-35.0) % Seg Neutrophils # Man (1.8-7.7) K/mm3 Lymphocytes # (Manual) (1.2-5.4) K/mm3 D-Dimer (0-234) ng/mlDDU ABG pH (7.350-7.450) pH Units ABG pO2 (80.0-90.0) mm Hg ABG HCO3 (20.0-26.0) mmol/L ABG Hemoglobin (12.0-16.0) gm/dl Chloride (98-107) mmol/L BUN (7-17) mg/dL Glucose (65-100) mg/dL POC Glucose 157 H 166 H (70-105) mg/dL Calcium (8.4-10.2) mg/dL Ferritin 371.2 H (10.0-200.0) ng/mL Lactate Dehydrogenase (91-180) units/L C-Reactive Protein (0.00-1.30) mg/dL Total Protein (6.3-8.2) g/dL Albumin (3.9-5) g/dL
[2020-07-11] MEDS: REMDESIVIR 100 MG in SODIUM CHLORIDE 0.9% 250ML 250 ML IV SCH (22:25)
[2020-07-11] MEDS: SODIUM CHLORIDE 0.9% 50 ML IVPB IV SCH (22:26)
[2020-07-12] MEDS: ALBUTEROL 2.5 MG/3 ML NEBU IH SCH ×6 (00:17→19:58)
[2020-07-12] MEDS: fentaNYL DRIP Premix 2,000 MCG/100 ML BAG IV SCH ×5 (01:53→21:23)
[2020-07-12 05:40] LABS: Hemoglobin 10.5 gm/dl (10.1-14.3); Mean Corpuscular HGB Conc 33 % (30-34); Mean Corpuscular Volume 91 fl (79-97); Platelet Count 187 K/mm3 (140-440); Red Blood Count 3.52 M/mm3 (3.65-5.03)
[2020-07-12 05:58] LABS: Alanine Aminotransferase 15 units/L (7-56); Blood Urea Nitrogen 21 mg/dL (7-17)
[2020-07-12 05:59] LABS: Hemolysis Index 2
[2020-07-12 06:08] LABS: BUN/Creatinine Ratio 35
[2020-07-12] MEDS: methylPREDNISolone Sod Succinate 125 MG/2 ML INJ IV SCH ×4 (06:16→17:09)
[2020-07-12] MEDS: BUDESONIDE 0.5 MG/2 ML NEBU IH SCH ×2 (08:40→19:59)
[2020-07-12] MEDS: ARFORMOTEROL 15 MCG/2 ML NEBU IH SCH ×2 (08:48→19:59)
[2020-07-12] MEDS: ZINC SULFATE 220 MG CAP PO SCH ×2 (09:08→21:07)
[2020-07-12] MEDS: LANSOPRAZOLE 30 MG SOLUTAB FEEDTUBE SCH (09:08)
[2020-07-12] MEDS: ASCORBIC ACID 500 MG TAB PO SCH ×2 (09:08→21:07)
[2020-07-12] MEDS: VENLAFAXINE 37.5 MG TAB PO SCH (09:08)
[2020-07-12] MEDS: QUEtiapine 200 MG TAB PO SCH ×2 (09:08→21:07)
[2020-07-12] MEDS: ASPIRIN 81 MG TAB CHEW PO SCH (09:09)
[2020-07-12] MEDS: ENOXAPARIN 30 MG/0.3 ML INJ SUB-Q SCH ×2 (09:09→21:05)
[2020-07-12] MEDS: HYDROXYCHLOROQUINE 200 MG TAB PO SCH (09:09)
[2020-07-12] MEDS: CEFEPIME/NS 2 GM/100 ML 2 GM/100 ML BAG IV SCH ×2 (09:10→21:05)
[2020-07-12 09:30] LABS: Basophils % (Manual) 0 % (0.0-1.8); Eosinophils % (Manual) 0 % (0.0-4.3); Total Cells Counted 100
[2020-07-12 09:31] LABS: Platelet Estimate Consistent w Auto; RBC Morphology Normal
--- NOTE | 2020-07-12 09:42 | Progress Note ---
Assessment and Plan Cultures: Blood cultures 07/07/2020 no growth today SARS COV2- IgG negative Sputum culture 07/08/2020 usual respiratory [place] Blood culture 07/11/2020 no growth today A/P: 50-year-old female with CHF, asthma, hypertension, lupus was admitted to the hospital with complaints of fever, shortness of breath. Of note, she was seen last week due to an asthma exacerbation when her SARS-CoV-2 PCR and IgG were both negative. She was treated with steroids. She reportedly then went to [place] and tested positive for COVID-19 and was discharged from the hospital on 07/05/2020.: #Sepsis with septic shock: Patient was briefly on Levophed yesterday for oversedation, today and she is off pressors, fever improving. Repeat blood cultures negative. Urinalysis negative. #Acute asthma exacerbation: on nebs and steroids. #Acute hypoxic respiratory failure: Remains intubated #Critical COVID diagnosis at [place]: Repeat chest x-ray with bilateral pneumonia. D-dimer and ferritin went slightly up. #Lupus, immunocompromised host: On Plaquenil. Recs: -Follow-up blood culture, sputum culture -Continue cefepime 2 g IV once twice daily for now day 2 of 5 -Check MRSA PCR -SARS-CoV-2 IgG is negative, patient may benefit from COVID-19 plasma -Continue remdesivir total 5 days -day 5 of 5 -Continue steroids -prophylactic anticoagulation based on d-dimer -trend ferritin, LDH, d-dimer, CRP every 2-3 days for risk stratification and to assess disease progression -Monitor fever will follow Eneida Quiñones MD [facility] ([facility]) Office [phone] Subjective Date of service: 07/12/20 Principal diagnosis: Ac hypoxemic resp failure; PNA; COVID-19 infxn; SLE; Asthma exacerbation Interval history: Patient remains intubated, no fever last 12 hours, off pressors, she was briefly on pressors yesterday due to sedation Objective - Exam Narrative Exam: General appearance: Alert intubated Eyes: anicteric sclerae, moist conjunctivae; no lid-lag; PERRLA HENT: Normocephalic, Atraumatic; normal external ears, nares open, oropharynx endotracheal tube in place Neck: supple, tracheal midline, no JVD Lungs: Scattered rhonchi bilaterally CV: RRR no murmur Abdomen: Soft, non-tender; no masses or hepatosplenomegaly Extremities: no edema, no cyanosis Skin: No rash. Psych: no agitated Neuro: alert intubated - Constitutional Vitals: Vital Signs Temp Pulse Resp BP Pulse Ox 98 F 48 L 25 H 156/97 95 07/12/20 04:00 07/12/20 09:22 07/12/20 09:22 07/12/20 08:37 07/12/20 08:37 Temperature -Last 24 Hours Temperature 98 F Temperature 98.9 F Temperature 98.4 F Temperature 98.4 F Temperature 98.3 F - Labs CBC & Chem 7: 07/12/20 04:00 07/12/20 04:00 Labs: Abnormal lab results 07/11/20 07/11/20 07/11/20 Range/Units 09:11 09:11 09:11 RBC (3.65-5.03) M/mm3 Seg Neuts % (Manual) 92.0 H (40.0-70.0) % Lymphocytes % (Manual) 4.0 L (13.4-35.0) % Seg Neutrophils # Man 14.5 H (1.8-7.7) K/mm3 Lymphocytes # (Manual) 0.6 L (1.2-5.4) K/mm3 D-Dimer 360.61 H (0-234) ng/mlDDU ABG pH (7.320-7.450) ABG Hemoglobin (12.0-17.5) ABG Glucose (65-95) mg/dL Chloride 107.1 H (98-107) mmol/L Carbon Dioxide (22-30) mmol/L BUN 22 H (7-17) mg/dL Glucose 149 H (65-100) mg/dL POC Glucose (70-105) mg/dL Calcium 7.8 L (8.4-10.2) mg/dL Ferritin (10.0-200.0) ng/mL Lactate Dehydrogenase 483 H (91-180) units/L C-Reactive Protein 2.30 H (0.00-1.30) mg/dL Total Protein 4.9 L (6.3-8.2) g/dL Albumin 3.0 L (3.9-5) g/dL Arterial Blood Glucose (65-95) mg/dL Arterial Blood Ionized Calcium (4.6-5.3) mg/dL 07/11/20 07/11/20 07/11/20 Range/Units 09:11 12:16 17:55 RBC (3.65-5.03) M/mm3 Seg Neuts % (Manual) (40.0-70.0) % Lymphocytes % (Manual) (13.4-35.0) % Seg Neutrophils # Man (1.8-7.7) K/mm3 Lymphocytes # (Manual) (1.2-5.4) K/mm3 D-Dimer (0-234) ng/mlDDU ABG pH (7.320-7.450) ABG Hemoglobin (12.0-17.5) ABG Glucose (65-95) mg/dL Chloride (98-107) mmol/L Carbon Dioxide (22-30) mmol/L BUN (7-17) mg/dL Glucose (65-100) mg/dL POC Glucose 157 H 166 H (70-105) mg/dL Calcium (8.4-10.2) mg/dL Ferritin 371.2 H (10.0-200.0) ng/mL Lactate Dehydrogenase (91-180) units/L C-Reactive Protein (0.00-1.30) mg/dL Total Protein (6.3-8.2) g/dL Albumin (3.9-5) g/dL Arterial Blood Glucose (65-95) mg/dL Arterial Blood Ionized Calcium (4.6-5.3) mg/dL 07/12/20 07/12/20 07/12/20 Range/Units 00:32 04:00 04:00 RBC 3.52 L (3.65-5.03) M/mm3 Seg Neuts % (Manual) 90.0 H (40.0-70.0) % Lymphocytes % (Manual) 4.0 L (13.4-35.0) % Seg Neutrophils # Man 9.5 H (1.8-7.7) K/mm3 Lymphocytes # (Manual) 0.4 L (1.2-5.4) K/mm3 D-Dimer (0-234) ng/mlDDU ABG pH (7.320-7.450) ABG Hemoglobin (12.0-17.5) ABG Glucose (65-95) mg/dL Chloride (98-107) mmol/L Carbon Dioxide 31 H (22-30) mmol/L BUN 21 H (7-17) mg/dL Glucose 175 H (65-100) mg/dL POC Glucose 178 H (70-105) mg/dL Calcium 8.0 L (8.4-10.2) mg/dL Ferritin (10.0-200.0) ng/mL Lactate Dehydrogenase (91-180) units/L C-Reactive Protein (0.00-1.30) mg/dL Total Protein 5.4 L (6.3-8.2) g/dL Albumin 3.0 L (3.9-5) g/dL Arterial Blood Glucose (65-95) mg/dL Arterial Blood Ionized Calcium (4.6-5.3) mg/dL 07/12/20 07/12/20 Range/Units 04:01 05:47 RBC (3.65-5.03) M/mm3 Seg Neuts % (Manual) (40.0-70.0) % Lymphocytes % (Manual) (13.4-35.0) % Seg Neutrophils # Man (1.8-7.7) K/mm3 Lymphocytes # (Manual) (1.2-5.4) K/mm3 D-Dimer (0-234) ng/mlDDU ABG pH 7.456 H (7.320-7.450) ABG Hemoglobin 10.6 L (12.0-17.5) ABG Glucose 177 H (65-95) mg/dL Chloride (98-107) mmol/L Carbon Dioxide (22-30) mmol/L BUN (7-17) mg/dL Glucose (65-100) mg/dL POC Glucose 185 H (70-105) mg/dL Calcium (8.4-10.2) mg/dL Ferritin (10.0-200.0) ng/mL Lactate Dehydrogenase (91-180) units/L C-Reactive Protein (0.00-1.30) mg/dL Total Protein (6.3-8.2) g/dL Albumin (3.9-5) g/dL Arterial Blood Glucose 177 H (65-95) mg/dL Arterial Blood Ionized Calcium 4.5 L (4.6-5.3) mg/dL
--- NOTE | 2020-07-12 15:09 | Progress Note ---
Assessment and Plan Acute hypoxemic respiratory failure, now on MVS Bilateral pneumonia, left greater than right lungs. COVID-19 infection. History of congestive heart failure. History of lupus erythematosus. Leukocytosis. Tobacco use disorder. Acute asthma exacerbation. History of hypertension. Obesity - begin Lantus 5 units SQ q24h - begin low dose SSI - AM CXR ordered - continue Seroquel 200 mg p.o. bid - continue to wean supplemental oxygen for target O2 sat's > 92% acutely (FiO2 increased to 60% with peep at 14) - continue care as below otherwise; - continue airborne and contact isolation - follow repeat COVID-19 testing - continue Zinc & Vit C supplementaion - complete Remdesivir - empiric AB's coverage per ID rec's otherwise - continue systemic steroids for Asthma / severe COVID infection - continue Daily SAT and SBT assessment as tolerated - VAP bundle addressed - continue lung protective strategies - continue bronchodilators with pulmonary hygiene per RT - wean per pulmonary driven protocols otherwise - accuchecks with glycemic control per SSI (While critically ill target blood glucose of 140-180 mg/dL; avoid hypoglycemia) - sedation prn for target RASS -1 to -2 - avoid nephrotoxins, renally dose all medications - continue to avoid benzodiazepine's, reduce the possibility of delirium - prn analgesia per CPOT score - Maintenance of sleep-wake cycle, avoid delirium - continue enteral nutritional support at goal rate as tolerated - G.I. & VTE prophylaxis - PT/OT/ROM exercises - continue mobility protocols for pressure ulcer prophylaxis - Monitor hemodynamics closely - continue other care per attending / other consultants - discharge planning ongoing concurrently .... Re-evaluate in am & prn CONDITION: CRITICAL PROGNOSIS: GUARDED CODE STATUS: FULL CODE The high probability of a clinically significant, sudden or life-threatening deterioration of the [respiratory, cardiovascular & neurologic] system(s) required my full and direct attention, intervention and personal management. The aggregate critical care time was [33] minutes without overlap. Time includes spent on; [x] Data Review and interpretation [x] Patient assessment and monitoring of vital signs [x] Documentation [x] Medication orders and management Subjective Date of service: 07/12/20 Principal diagnosis: Ac hypoxemic resp failure; PNA; COVID-19 infxn; SLE; Asthma exacerbation Interval history: Patient is seen today for: Acute hypoxemic respiratory failure; Bilateral pneumonia; COVID-19 infection; H/O CHF; SLE; Acute asthma exacerbation. HTN; Obesity Seen and examined at bedside; 24hour events reviewed; nursing and respiratory care staff consulted; no adverse overnight events reported to me; resting peacefully in bed; started on Seroquel yesterday due to intermittent severe agitation with concurrent desaturation's; blood sugars running high today per RN; No N/V/F/C Objective Vital Signs - 12hr 07/12/20 07/12/20 07/12/20 03:30 03:53 04:00 Temperature 98 F Pulse Rate 52 L 53 L 54 L Pulse Rate [ 52 L Bilateral Throughout] Pulse Rate [ 60 From Monitor] Respiratory 25 H 25 H Rate Respiratory 25 H Rate [Bilateral Throughout] Blood Pressure 117/72 131/75 O2 Sat by Pulse 96 95 Oximetry 07/12/20 07/12/20 07/12/20 04:30 04:49 05:00 Temperature Pulse Rate 50 L 51 L 56 L Pulse Rate [ Bilateral Throughout] Pulse Rate [ From Monitor] Respiratory 25 H 25 H Rate Respiratory Rate [Bilateral Throughout] Blood Pressure 123/76 132/80 124/71 O2 Sat by Pulse 93 92 91 Oximetry 07/12/20 07/12/20 07/12/20 05:30 06:00 06:30 Temperature Pulse Rate 54 L 51 L 48 L Pulse Rate [ Bilateral Throughout] Pulse Rate [ From Monitor] Respiratory 25 H 25 H 25 H Rate Respiratory Rate [Bilateral Throughout] Blood Pressure 132/80 132/78 136/81 O2 Sat by Pulse 93 96 97 Oximetry 07/12/20 07/12/20 07/12/20 07:00 07:31 08:00 Temperature Pulse Rate 48 L 47 L 52 L Pulse Rate [ Bilateral Throughout] Pulse Rate [ From Monitor] Respiratory 25 H 25 H 25 H Rate Respiratory Rate [Bilateral Throughout] Blood Pressure 148/87 145/83 156/97 O2 Sat by Pulse 96 97 97 Oximetry 07/12/20 07/12/20 07/12/20 08:30 08:37 09:00 Temperature Pulse Rate 47 L 53 L 52 L Pulse Rate [ Bilateral Throughout] Pulse Rate [ From Monitor] Respiratory 25 H 25 H Rate Respiratory Rate [Bilateral Throughout] Blood Pressure 156/97 156/97 138/81 O2 Sat by Pulse 96 95 96 Oximetry 07/12/20 07/12/20 07/12/20 09:22 09:30 10:00 Temperature Pulse Rate 56 L 65 Pulse Rate [ 48 L Bilateral Throughout] Pulse Rate [ From Monitor] Respiratory 25 H 25 H Rate Respiratory 25 H Rate [Bilateral Throughout] Blood Pressure 133/77 127/57 O2 Sat by Pulse 98 94 Oximetry 07/12/20 07/12/20 07/12/20 10:30 11:00 11:30 Temperature Pulse Rate 60 60 59 L Pulse Rate [ Bilateral Throughout] Pulse Rate [ From Monitor] Respiratory 25 H 25 H 25 H Rate Respiratory Rate [Bilateral Throughout] Blood Pressure 125/67 127/70 125/76 O2 Sat by Pulse 96 96 96 Oximetry 07/12/20 07/12/20 07/12/20 12:00 12:03 12:30 Temperature 97.4 F L Pulse Rate 57 L 59 L 71 Pulse Rate [ 63 Bilateral Throughout] Pulse Rate [ From Monitor] Respiratory 25 H 20 Rate Respiratory 25 H Rate [Bilateral Throughout] Blood Pressure 136/73 136/73 122/60 O2 Sat by Pulse 96 95 91 Oximetry 07/12/20 07/12/20 07/12/20 13:00 13:30 14:00 Temperature Pulse Rate 62 61 61 Pulse Rate [ Bilateral Throughout] Pulse Rate [ From Monitor] Respiratory 20 20 20 Rate Respiratory Rate [Bilateral Throughout] Blood Pressure 111/57 114/62 114/57 O2 Sat by Pulse 93 93 92 Oximetry Constitutional: no acute distress, other (middle aged obese female with mildly increased respiratory effort at rest on MVS) Eyes: non-icteric ENT: oropharynx moist, other (ETT 24 cm YANET) Neck: supple, no lymphadenopathy, no JVD Effort: mildly labored Ascultation: Bilateral: diminished breath sounds, rhonchi Percussion: Bilateral: not dull Cardiovascular: regular rate and rhythm Gastrointestinal: normoactive bowel sounds, soft, non-tender, non-distended Integumentary: normal Extremities: no cyanosis, no edema, pulses normal, no ischemia or petechiae Neurologic: normal mental status, non-focal exam, pupils equal and round, motor strength normal and Psychiatric: other (sedated) CBC and BMP: 07/13/20 07:20 07/13/20 07:20 ABG, PT/INR, D-dimer: ABG ABG pH 7.456 (7.320-7.450) H 07/12/20 04:01 POC ABG pCO2 33.6 mmHg (32.0-48.0) 07/12/20 04:01 ABG pCO2 53.0 mm Hg 07/11/20 04:05 POC ABG pO2 86.5 mmHg (83-108) 07/12/20 04:01 ABG pO2 93.6 mm Hg (80.0-90.0) H 07/11/20 04:05 POC ABG HCO3 23.6 07/12/20 04:01 ABG O2 Saturation 97.1 % (95.0-99.0) 07/11/20 04:05 PT/INR, D-dimer D-Dimer 360.61 ng/mlDDU (0-234) H 07/11/20 09:11 Abnormal lab findings: Abnormal Labs 07/06/20 07/06/20 07/07/20 05:24 17:16 04:50 WBC 13.5 H 12.7 H RBC Hgb Lymph % (Auto) Lymph # (Auto) Seg Neuts % (Manual) 86.0 H 87.0 H Lymphocytes % (Manual) 6.0 L 9.0 L Seg Neutrophils # Seg Neutrophils # Man 11.6 H 11.0 H Lymphocytes # (Manual) 0.8 L 1.1 L D-Dimer ABG pH ABG pO2 ABG HCO3 ABG O2 Saturation ABG Hemoglobin ABG Glucose Oxyhemoglobin Chloride Carbon Dioxide BUN Glucose POC Glucose Calcium Ferritin Lactate Dehydrogenase 242 H C-Reactive Protein 7.30 H Total Protein Albumin Arterial Blood Glucose Arterial Blood Ionized Calcium 07/07/20 07/07/20 07/07/20 04:50 14:22 14:22 WBC RBC Hgb Lymph % (Auto) Lymph # (Auto) Seg Neuts % (Manual) Lymphocytes % (Manual) Seg Neutrophils # Seg Neutrophils # Man Lymphocytes # (Manual) D-Dimer ABG pH ABG pO2 ABG HCO3 ABG O2 Saturation ABG Hemoglobin ABG Glucose Oxyhemoglobin Chloride Carbon Dioxide BUN 18 H Glucose 138 H POC Glucose Calcium Ferritin 228.2 H Lactate Dehydrogenase 277 H C-Reactive Protein Total Protein 5.9 L Albumin 3.4 L Arterial Blood Glucose Arterial Blood Ionized Calcium 07/08/20 07/08/20 07/08/20 11:18 12:57 16:13 WBC RBC Hgb Lymph % (Auto) Lymph # (Auto) Seg Neuts % (Manual) Lymphocytes % (Manual) Seg Neutrophils # Seg Neutrophils # Man Lymphocytes # (Manual) D-Dimer ABG pH ABG pO2 39.3 L* ABG HCO3 ABG O2 Saturation 76.8 L ABG Hemoglobin ABG Glucose Oxyhemoglobin 75.3 L Chloride Carbon Dioxide 20 L D BUN Glucose 135 H POC Glucose 106 H Calcium 8.0 L Ferritin Lactate Dehydrogenase C-Reactive Protein Total Protein Albumin Arterial Blood Glucose Arterial Blood Ionized Calcium 07/08/20 07/08/20 07/09/20 17:04 18:45 04:00 WBC 15.6 H RBC Hgb Lymph % (Auto) 4.7 L Lymph # (Auto) 0.7 L Seg Neuts % (Manual) Lymphocytes % (Manual) Seg Neutrophils # 14.2 H Seg Neutrophils # Man Lymphocytes # (Manual) D-Dimer ABG pH ABG pO2 181.8 H ABG HCO3 ABG O2 Saturation 99.1 H ABG Hemoglobin 11.4 L ABG Glucose Oxyhemoglobin Chloride Carbon Dioxide BUN Glucose POC Glucose 117 H Calcium Ferritin Lactate Dehydrogenase C-Reactive Protein Total Protein Albumin Arterial Blood Glucose Arterial Blood Ionized Calcium 07/09/20 07/09/20 07/09/20 04:00 04:00 04:49 WBC RBC Hgb Lymph % (Auto) Lymph # (Auto) Seg Neuts % (Manual) Lymphocytes % (Manual) Seg Neutrophils # Seg Neutrophils # Man Lymphocytes # (Manual) D-Dimer ABG pH ABG pO2 ABG HCO3 26.2 H ABG O2 Saturation ABG Hemoglobin 11.2 L ABG Glucose Oxyhemoglobin 94.9 L Chloride Carbon Dioxide BUN Glucose 158 H POC Glucose Calcium 8.2 L Ferritin 320.0 H Lactate Dehydrogenase 391 H C-Reactive Protein 9.50 H Total Protein 5.9 L Albumin 3.2 L Arterial Blood Glucose Arterial Blood Ionized Calcium 07/09/20 07/09/20 07/09/20 11:56 17:49 23:39 WBC RBC Hgb Lymph % (Auto) Lymph # (Auto) Seg Neuts % (Manual) Lymphocytes % (Manual) Seg Neutrophils # Seg Neutrophils # Man Lymphocytes # (Manual) D-Dimer ABG pH ABG pO2 ABG HCO3 ABG O2 Saturation ABG Hemoglobin ABG Glucose Oxyhemoglobin Chloride Carbon Dioxide BUN Glucose POC Glucose 156 H 119 H 145 H Calcium Ferritin Lactate Dehydrogenase C-Reactive Protein Total Protein Albumin Arterial Blood Glucose Arterial Blood Ionized Calcium 07/10/20 07/10/20 07/10/20 03:32 05:26 11:22 WBC RBC Hgb Lymph % (Auto) Lymph # (Auto) Seg Neuts % (Manual) Lymphocytes % (Manual) Seg Neutrophils # Seg Neutrophils # Man Lymphocytes # (Manual) D-Dimer ABG pH ABG pO2 75.7 L ABG HCO3 27.5 H ABG O2 Saturation ABG Hemoglobin 9.3 L ABG Glucose Oxyhemoglobin 94.7 L Chloride Carbon Dioxide BUN Glucose POC Glucose 156 H 148 H Calcium Ferritin Lactate Dehydrogenase C-Reactive Protein Total Protein Albumin Arterial Blood Glucose Arterial Blood Ionized Calcium 07/10/20 07/10/20 07/10/20 12:10 12:10 18:20 WBC 14.1 H RBC 3.33 L Hgb 9.9 L Lymph % (Auto) Lymph # (Auto) Seg Neuts % (Manual) 89.0 H Lymphocytes % (Manual) 8.0 L Seg Neutrophils # Seg Neutrophils # Man 12.5 H Lymphocytes # (Manual) 1.1 L D-Dimer ABG pH ABG pO2 ABG HCO3 ABG O2 Saturation ABG Hemoglobin ABG Glucose Oxyhemoglobin Chloride Carbon Dioxide BUN 21 H Glucose 154 H POC Glucose 181 H Calcium 8.0 L Ferritin Lactate Dehydrogenase C-Reactive Protein Total Protein 5.4 L Albumin 3.0 L Arterial Blood Glucose Arterial Blood Ionized Calcium 07/10/20 07/11/20 07/11/20 23:51 04:05 05:43 WBC RBC Hgb Lymph % (Auto) Lymph # (Auto) Seg Neuts % (Manual) Lymphocytes % (Manual) Seg Neutrophils # Seg Neutrophils # Man Lymphocytes # (Manual) D-Dimer ABG pH 7.348 L ABG pO2 93.6 H ABG HCO3 28.5 H ABG O2 Saturation ABG Hemoglobin 10.1 L ABG Glucose Oxyhemoglobin Chloride Carbon Dioxide BUN Glucose POC Glucose 116 H 132 H Calcium Ferritin Lactate Dehydrogenase C-Reactive Protein Total Protein Albumin Arterial Blood Glucose Arterial Blood Ionized Calcium 07/11/20 07/11/20 07/11/20 09:11 09:11 09:11 WBC 15.8 H RBC 3.44 L Hgb Lymph % (Auto) Lymph # (Auto) Seg Neuts % (Manual) 92.0 H Lymphocytes % (Manual) 4.0 L Seg Neutrophils # Seg Neutrophils # Man 14.5 H Lymphocytes # (Manual) 0.6 L D-Dimer 360.61 H ABG pH ABG pO2 ABG HCO3 ABG O2 Saturation ABG Hemoglobin ABG Glucose Oxyhemoglobin Chloride 107.1 H Carbon Dioxide BUN 22 H Glucose 149 H POC Glucose Calcium 7.8 L Ferritin Lactate Dehydrogenase 483 H C-Reactive Protein 2.30 H Total Protein 4.9 L Albumin 3.0 L Arterial Blood Glucose Arterial Blood Ionized Calcium 07/11/20 07/11/20 07/11/20 09:11 12:16 17:55 WBC RBC Hgb Lymph % (Auto) Lymph # (Auto) Seg Neuts % (Manual) Lymphocytes % (Manual) Seg Neutrophils # Seg Neutrophils # Man Lymphocytes # (Manual) D-Dimer ABG pH ABG pO2 ABG HCO3 ABG O2 Saturation ABG Hemoglobin ABG Glucose Oxyhemoglobin Chloride Carbon Dioxide BUN Glucose POC Glucose 157 H 166 H Calcium Ferritin 371.2 H Lactate Dehydrogenase C-Reactive Protein Total Protein Albumin Arterial Blood Glucose Arterial Blood Ionized Calcium 07/12/20 07/12/20 07/12/20 00:32 04:00 04:00 WBC RBC 3.52 L Hgb Lymph % (Auto) Lymph # (Auto) Seg Neuts % (Manual) 90.0 H Lymphocytes % (Manual) 4.0 L Seg Neutrophils # Seg Neutrophils # Man 9.5 H Lymphocytes # (Manual) 0.4 L D-Dimer ABG pH ABG pO2 ABG HCO3 ABG O2 Saturation ABG Hemoglobin ABG Glucose Oxyhemoglobin Chloride Carbon Dioxide 31 H BUN 21 H Glucose 175 H POC Glucose 178 H Calcium 8.0 L Ferritin Lactate Dehydrogenase C-Reactive Protein Total Protein 5.4 L Albumin 3.0 L Arterial Blood Glucose Arterial Blood Ionized Calcium 07/12/20 07/12/20 07/12/20 04:01 05:47 12:09 WBC RBC Hgb Lymph % (Auto) Lymph # (Auto) Seg Neuts % (Manual) Lymphocytes % (Manual) Seg Neutrophils # Seg Neutrophils # Man Lymphocytes # (Manual) D-Dimer ABG pH 7.456 H ABG pO2 ABG HCO3 ABG O2 Saturation ABG Hemoglobin 10.6 L ABG Glucose 177 H Oxyhemoglobin Chloride Carbon Dioxide BUN Glucose POC Glucose 185 H 227 H Calcium Ferritin Lactate Dehydrogenase C-Reactive Protein Total Protein Albumin Arterial Blood Glucose 177 H Arterial Blood Ionized Calcium 4.5 L Chest x-ray: other (none today) Allied health notes reviewed: nursing
--- NOTE | 2020-07-12 16:33 | Progress Note ---
Assessment and Plan --Acute asthma exacerbation Solumedrol 60mg q 6 Oxygen supplementation as needed Continue montelukast Monitor oxygen saturations closely -- COVID-19 Tested positive for COVID-19 in [place] Solumedrol 60q6, Remdesivir for 5 days ordered for convalescent plasma transfusion Procalcitonin <0.05 ID on board follow ferritin, ldh, d-dimer levels -- Acute hypoxic respiratory failure Now intubated on 07/09/20 overnight From COVID-19 and asthma exacerbation Continue steroids Continue oxygen supplementation -- GERD (gastroesophageal reflux disease) cont Pantoprazole --SLE (systemic lupus erythematosus related syndrome) Continue home medications-hydroxychloroquine -- DVT prophylaxis Lovenox 30 mg twice daily -- Full code status The high probability of a clinically significant, sudden or life threatening deterioration of the [CVS, respiratory, [employer]] system(s) required my full and direct attention, intervention and personal management. The aggregate critical care time was [] minutes. This time is in addition to time spent performing reported procedures but includes the following: [x] Data Review and interpretation [x] Patient assessment and monitoring of vital signs [x] Documentation [x] Medication orders and management brief History: 50-year-old female with a past medical history of asthma, CHF, hypertension, and lupus complains of generalized body weakness, fever and shortness of breath. Patient states the symptoms started right after she was discharged from [place] on 07/05. She has associated wheezing, fever, cough and she has been using her inhalers with no significant effect. She also has associated diarrhea. Of note, she was hospitalized here in [facility] on 06/28 for asthma exacerbation and had a negative Covid test during the admission. She was treated and discharged. She presented to [place] for further evaluation after discharge from here and over there, she was found to have positive COVID-19 test and she was placed on steroids and subsequently discharged on Eliquis prophylaxis for DVT. She states that she did not receive remdesivir during the admission. She was discharged from [place] on 07/05. She went home and felt worse. She said that she passed out about 2 times. Due to persistent symptoms, she called EMS who brought her to [facility] for further evaluation. Daily course: 07/07. Patient seen and examined at bedside this morning. Patient is wheezing and slightly short of breath. Change steroids to Solu-Medrol 60 every 6. Added formoterol and budesonide. ID evaluation pending. Started patient on remdesivir as she is short of breath. 07/07. Placed on BIPAP this AM. Will need pulm evaluation. Solumedrol 60mg q6. STAT blood gas ordered. She will be transferred to [facility]. 07/08: Patient took oxygen off and attempts to go to the bathroom and subseq uently became hypoxemic with sats down into the low 80s. Patient became weak short of breath. After that time patient had persistent coughing and cannot maintain sats until nonrebreather was placed. Patient is transferred to the ICU unit and monitored for respiratory failure possibly requiring intubation. 07/09: ID recommended for convalescent plasma, ordered. Patient intubated overnight. Continue to monitor clinically, scheduled lab, follow inflammatory markers 07/10: Wait for convalescent plasma transfusion, wean off from ventilator as tolerated 07/11: Called patient's daughter and updated. Continue to wean off vent as tolerated, continue tube feeding, monitor vital sign CBC BMP daily. 07/12: remains intubated and sedated. follow inflammatory markers - wean off vent as tolerated Subjective Date of service: 07/12/20 Principal diagnosis: Ac hypoxemic resp failure; PNA; COVID-19 infxn; SLE; Asthma exacerbation Interval history: Patient seen and examined Patient remains intubated on mechanical ventilation Discussed with RN at the bedside, started on tube feeding Reviewed vitals, Objective - Exam Narrative Exam: GENERAL: well-developed obese -Citizen Of [place] female lying on bed intubated and sedated HEENT: Normocephalic. Atraumatic. No conjunctival congestion or icterus. Patient has moist mucous membranes. NECK: Supple. Trachea midline. ET tube in place, intubated with mechanical ventilation CHEST/LUNGS: Diffuse expiratory wheezes, coarse breath sound bilaterally HEART/CARDIOVASCULAR: Regular in rate and rhythm. S1 and S2 positive. ABDOMEN: Abdomen is soft, nontender. Patient has normal bowel sounds. SKIN: There is no rash. Warm and dry. NEURO: Sedated MUSCULOSKELETAL: No joint effusion or tenderness. EXTRIMITY: No edema, no cyanosis or clubbing. PSYCH: Unable to assess - Constitutional Vitals: Vital Signs - 12hr 07/12/20 07/12/20 07/12/20 04:49 05:00 05:30 Temperature Pulse Rate 51 L 56 L 54 L Pulse Rate [ Bilateral Throughout] Respiratory 25 H 25 H Rate Respiratory Rate [Bilateral Throughout] Blood Pressure 132/80 124/71 132/80 O2 Sat by Pulse 92 91 93 Oximetry 07/12/20 07/12/20 07/12/20 06:00 06:30 07:00 Temperature Pulse Rate 51 L 48 L 48 L Pulse Rate [ Bilateral Throughout] Respiratory 25 H 25 H 25 H Rate Respiratory Rate [Bilateral Throughout] Blood Pressure 132/78 136/81 148/87 O2 Sat by Pulse 96 97 96 Oximetry 07/12/20 07/12/20 07/12/20 07:31 08:00 08:30 Temperature Pulse Rate 47 L 52 L 47 L Pulse Rate [ Bilateral Throughout] Respiratory 25 H 25 H 25 H Rate Respiratory Rate [Bilateral Throughout] Blood Pressure 145/83 156/97 156/97 O2 Sat by Pulse 97 97 96 Oximetry 07/12/20 07/12/20 07/12/20 08:37 09:00 09:22 Temperature Pulse Rate 53 L 52 L Pulse Rate [ 48 L Bilateral Throughout] Respiratory 25 H Rate Respiratory 25 H Rate [Bilateral Throughout] Blood Pressure 156/97 138/81 O2 Sat by Pulse 95 96 Oximetry 07/12/20 07/12/20 07/12/20 09:30 10:00 10:30 Temperature Pulse Rate 56 L 65 60 Pulse Rate [ Bilateral Throughout] Respiratory 25 H 25 H 25 H Rate Respiratory Rate [Bilateral Throughout] Blood Pressure 133/77 127/57 125/67 O2 Sat by Pulse 98 94 96 Oximetry 07/12/20 07/12/20 07/12/20 11:00 11:30 12:00 Temperature 97.4 F L Pulse Rate 60 59 L 57 L Pulse Rate [ Bilateral Throughout] Respiratory 25 H 25 H 25 H Rate Respiratory Rate [Bilateral Throughout] Blood Pressure 127/70 125/76 136/73 O2 Sat by Pulse 96 96 96 Oximetry 07/12/20 07/12/20 07/12/20 12:03 12:30 13:00 Temperature Pulse Rate 59 L 71 62 Pulse Rate [ 63 Bilateral Throughout] Respiratory 20 20 Rate Respiratory 25 H Rate [Bilateral Throughout] Blood Pressure 136/73 122/60 111/57 O2 Sat by Pulse 95 91 93 Oximetry 11/13/20 11/13/20 11/13/20 13:30 14:00 14:30 Temperature Pulse Rate 61 61 60 Pulse Rate [ Bilateral Throughout] Respiratory 20 20 20 Rate Respiratory Rate [Bilateral Throughout] Blood Pressure 114/62 114/57 112/59 O2 Sat by Pulse 93 92 91 Oximetry 07/12/20 07/12/20 15:00 16:29 Temperature Pulse Rate 58 L 81 Pulse Rate [ Bilateral Throughout] Respiratory 20 Rate Respiratory Rate [Bilateral Throughout] Blood Pressure 105/58 131/68 O2 Sat by Pulse 94 94 Oximetry - Labs CBC & Chem 7: 07/13/20 07:20 07/13/20 07:20 Labs: Abnormal lab results 07/11/20 07/12/20 07/12/20 Range/Units 17:55 00:32 04:00 RBC 3.52 L (3.65-5.03) M/mm3 Seg Neuts % (Manual) 90.0 H (40.0-70.0) % Lymphocytes % (Manual) 4.0 L (13.4-35.0) % Seg Neutrophils # Man 9.5 H (1.8-7.7) K/mm3 Lymphocytes # (Manual) 0.4 L (1.2-5.4) K/mm3 ABG pH (7.320-7.450) ABG Hemoglobin (12.0-17.5) ABG Glucose (65-95) mg/dL Carbon Dioxide (22-30) mmol/L BUN (7-17) mg/dL Glucose (65-100) mg/dL POC Glucose 166 H 178 H (70-105) mg/dL Calcium (8.4-10.2) mg/dL Total Protein (6.3-8.2) g/dL Albumin (3.9-5) g/dL Arterial Blood Glucose (65-95) mg/dL Arterial Blood Ionized Calcium (4.6-5.3) mg/dL 07/12/20 07/12/20 07/12/20 Range/Units 04:00 04:01 05:47 RBC (3.65-5.03) M/mm3 Seg Neuts % (Manual) (40.0-70.0) % Lymphocytes % (Manual) (13.4-35.0) % Seg Neutrophils # Man (1.8-7.7) K/mm3 Lymphocytes # (Manual) (1.2-5.4) K/mm3 ABG pH 7.456 H (7.320-7.450) ABG Hemoglobin 10.6 L (12.0-17.5) ABG Glucose 177 H (65-95) mg/dL Carbon Dioxide 31 H (22-30) mmol/L BUN 21 H (7-17) mg/dL Glucose 175 H (65-100) mg/dL POC Glucose 185 H (70-105) mg/dL Calcium 8.0 L (8.4-10.2) mg/dL Total Protein 5.4 L (6.3-8.2) g/dL Albumin 3.0 L (3.9-5) g/dL Arterial Blood Glucose 177 H (65-95) mg/dL Arterial Blood Ionized Calcium 4.5 L (4.6-5.3) mg/dL 07/12/20 Range/Units 12:09 RBC (3.65-5.03) M/mm3 Seg Neuts % (Manual) (40.0-70.0) % Lymphocytes % (Manual) (13.4-35.0) % Seg Neutrophils # Man (1.8-7.7) K/mm3 Lymphocytes # (Manual) (1.2-5.4) K/mm3 ABG pH (7.320-7.450) ABG Hemoglobin (12.0-17.5) ABG Glucose (65-95) mg/dL Carbon Dioxide (22-30) mmol/L BUN (7-17) mg/dL Glucose (65-100) mg/dL POC Glucose 227 H (70-105) mg/dL Calcium (8.4-10.2) mg/dL Total Protein (6.3-8.2) g/dL Albumin (3.9-5) g/dL Arterial Blood Glucose (65-95) mg/dL Arterial Blood Ionized Calcium (4.6-5.3) mg/dL
[2020-07-12] MEDS ORDERED: DEXTROSE 50% IN WATER (25GM) 50 ML SYRINGE IV PRN (16:58)
[2020-07-12] MEDS: INSULIN REGULAR, HUMAN 100 UNIT/ML 3ML VIAL SUB-Q SCH (17:37)
[2020-07-12] MEDS: INSULIN GLARGINE 100 UNITS/ML SUB-Q SCH (17:39)
[2020-07-12] MEDS: MONTELUKAST 10 MG TAB PO SCH (21:07)
[2020-07-12] MEDS: REMDESIVIR 100 MG in SODIUM CHLORIDE 0.9% 250ML 250 ML IV SCH (21:22)
[2020-07-12] MEDS: SODIUM CHLORIDE 0.9% 50 ML IVPB IV SCH (21:25)
[2020-07-13] MEDS: ALBUTEROL 2.5 MG/3 ML NEBU IH SCH ×6 (00:14→19:49)
[2020-07-13] MEDS: fentaNYL DRIP Premix 2,000 MCG/100 ML BAG IV SCH ×5 (03:19→23:43)
--- NOTE | 2020-07-13 04:09 | XRay Report ---
CHEST 1 VIEW 07/13/2020 2:58 AM INDICATION / CLINICAL INFORMATION: Pneumonia COVID. COMPARISON: 07/10/2020 FINDINGS: SUPPORT DEVICES: Stable, satisfactory device positioning. HEART / MEDIASTINUM: Stable. LUNGS / PLEURA: Moderately improved bilateral opacities. No pneumothorax. ADDITIONAL FINDINGS: No significant additional findings. IMPRESSION: 1. Moderate improvement in bilateral pulmonary opacities. Signer Name: Dylan Jones MD Signed: 07/13/2020 4:05 AM Workstation Name: [employer]
[2020-07-13 04:26] LABS: ABG Base Excess 2.9 mmol/L (-2.0-3.0); ABG HCO3 29.7 mmol/L (20.0-26.0); ABG Methemoglobin 0.6 % (0.0-1.5); ABG Oxygen Saturation 89.3 % (95.0-99.0); ABG PCO2 56.2 mm Hg; ABG PH 7.341 pH Units (7.350-7.450); ABG PO2 56.5 mm Hg (80.0-90.0)
[2020-07-13] MEDS: methylPREDNISolone Sod Succinate 125 MG/2 ML INJ IV SCH ×4 (06:12→23:42)
[2020-07-13] MEDS: INSULIN REGULAR, HUMAN 100 UNIT/ML 3ML VIAL SUB-Q SCH ×4 (06:42→23:43)
[2020-07-13 08:16] LABS: Hematocrit 36.5 % (30.3-42.9); Hemoglobin 12.1 gm/dl (10.1-14.3); Mean Corpuscular HGB Conc 33 % (30-34); Mean Corpuscular Volume 93 fl (79-97); Platelet Count 242 K/mm3 (140-440); Red Blood Count 3.95 M/mm3 (3.65-5.03); Red Cell Distribution Width 14.2 % (13.2-15.2)
[2020-07-13] MEDS: BUDESONIDE 0.5 MG/2 ML NEBU IH SCH ×2 (08:35→19:49)
[2020-07-13 08:36] LABS: Alanine Aminotransferase 13 units/L (7-56); Albumin 3.2 g/dL (3.9-5); Blood Urea Nitrogen 25 mg/dL (7-17); Calcium 8.1 mg/dL (8.4-10.2); Hemolysis Index 0
[2020-07-13 08:37] LABS: BUN/Creatinine Ratio 42
[2020-07-13] MEDS: ARFORMOTEROL 15 MCG/2 ML NEBU IH SCH ×2 (08:40→19:49)
[2020-07-13] MEDS: QUEtiapine 200 MG TAB PO SCH ×2 (09:41→21:52)
[2020-07-13] MEDS: CEFEPIME/NS 2 GM/100 ML 2 GM/100 ML BAG IV SCH ×2 (09:41→21:49)
[2020-07-13] MEDS: HYDROXYCHLOROQUINE 200 MG TAB PO SCH (09:42)
[2020-07-13] MEDS: ENOXAPARIN 30 MG/0.3 ML INJ SUB-Q SCH (09:42)
[2020-07-13] MEDS: ASPIRIN 81 MG TAB CHEW PO SCH (09:42)
[2020-07-13] MEDS: ASCORBIC ACID 500 MG TAB PO SCH ×2 (09:42→21:52)
[2020-07-13] MEDS: LANSOPRAZOLE 30 MG SOLUTAB FEEDTUBE SCH (09:42)
[2020-07-13] MEDS: ZINC SULFATE 220 MG CAP PO SCH ×2 (09:42→21:52)
[2020-07-13] MEDS: VENLAFAXINE 37.5 MG TAB PO SCH (09:43)
[2020-07-13 10:28] LABS: Band Neutrophils # (Manual) 0.2 K/mm3; Basophils % (Manual) 0 % (0.0-1.8); Eosinophils % (Manual) 0 % (0.0-4.3); Macrocytosis Rare; Myelocytes # (Manual) 0.4 K/mm3; Total Cells Counted 100
[2020-07-13 10:29] LABS: Platelet Estimate Consistent w Auto
--- NOTE | 2020-07-13 12:14 | Progress Note ---
Assessment and Plan --Acute asthma exacerbation Solumedrol 60mg q 6 Oxygen supplementation as needed Continue montelukast Monitor oxygen saturations closely -- COVID-19 Tested positive for COVID-19 in [place] Solumedrol 60q6, Remdesivir for 5 days ordered for convalescent plasma transfusion Procalcitonin <0.05 ID on board follow ferritin, ldh, d-dimer levels -- Acute hypoxic respiratory failure Now intubated on 07/09/20 overnight From COVID-19 and asthma exacerbation Continue steroids Continue oxygen supplementation -- GERD (gastroesophageal reflux disease) cont Pantoprazole --SLE (systemic lupus erythematosus related syndrome) Continue home medications-hydroxychloroquine -- DVT prophylaxis Lovenox 30 mg twice daily -- Full code status The high probability of a clinically significant, sudden or life threatening deterioration of the [CVS, respiratory, [employer]ER] system(s) required my full and direct attention, intervention and personal management. The aggregate critical care time was [] minutes. This time is in addition to time spent performing reported procedures but includes the following: [x] Data Review and interpretation [x] Patient assessment and monitoring of vital signs [x] Documentation [x] Medication orders and management brief History: 50-year-old female with a past medical history of asthma, CHF, hypertension, and lupus complains of generalized body weakness, fever and shortness of breath. Patient states the symptoms started right after she was discharged from [place] on 07/05. She has associated wheezing, fever, cough and she has been using her inhalers with no significant effect. She also has associated diarrhea. Of note, she was hospitalized here in [facility] on 06/28 for asthma exacerbation and had a negative Covid test during the admission. She was treated and discharged. She presented to [place] for further evaluation after discharge from here and over there, she was found to have positive COVID-19 test and she was placed on steroids and subsequently discharged on Eliquis prophylaxis for DVT. She states that she did not receive remdesivir during the admission. She was discharged from [place] on 07/05. She went home and felt worse. She said that she passed out about 2 times. Due to persistent symptoms, she called EMS who brought her to [facility] for further evaluation. Daily course: 07/07. Patient seen and examined at bedside this morning. Patient is wheezing and slightly short of breath. Change steroids to Solu-Medrol 60 every 6. Added formoterol and budesonide. ID evaluation pending. Started patient on remdesivir as she is short of breath. 07/07. Placed on BIPAP this AM. Will need pulm evaluation. Solumedrol 60mg q6. STAT blood gas ordered. She will be transferred to [facility]. 07/08: Patient took oxygen off and attempts to go to the bathroom and subseq uently became hypoxemic with sats down into the low 80s. Patient became weak short of breath. After that time patient had persistent coughing and cannot maintain sats until nonrebreather was placed. Patient is transferred to the ICU unit and monitored for respiratory failure possibly requiring intubation. 07/09: ID recommended for convalescent plasma, ordered. Patient intubated overnight. Continue to monitor clinically, scheduled lab, follow inflammatory markers 07/10: Wait for convalescent plasma transfusion, wean off from ventilator as tolerated 07/11: Called patient's daughter and updated. Continue to wean off vent as tolerated, continue tube feeding, monitor vital sign CBC BMP daily. 07/12: remains intubated and sedated. follow inflammatory markers - wean off vent as tolerated 07/13: wean off vent as tolerated, cxr in the am. reviewed vitals Subjective Date of service: 07/13/20 Principal diagnosis: Ac hypoxemic resp failure; PNA; COVID-19 infxn; SLE; Asthma exacerbation Interval history: Patient seen and examined Patient remains intubated on mechanical ventilation Discussed with RN at the bedside, on tube feeding Reviewed vitals, Objective - Exam Narrative Exam: GENERAL: well-developed obese -[place] female lying on bed intubated and sedated HEENT: Normocephalic. Atraumatic. No conjunctival congestion or icterus. Patient has moist mucous membranes. NECK: Supple. Trachea midline. ET tube in place, intubated with mechanical ventilation CHEST/LUNGS: Diffuse expiratory wheezes, coarse breath sound bilaterally HEART/CARDIOVASCULAR: Regular in rate and rhythm. S1 and S2 positive. ABDOMEN: Abdomen is soft, nontender. Patient has normal bowel sounds. SKIN: There is no rash. Warm and dry. NEURO: Sedated MUSCULOSKELETAL: No joint effusion or tenderness. EXTRIMITY: No edema, no cyanosis or clubbing. PSYCH: Unable to assess - Constitutional Vitals: Vital Signs - 12hr 07/13/20 07/13/20 07/13/20 00:30 01:00 01:30 Temperature Pulse Rate 64 63 61 Pulse Rate [ Bilateral Throughout] Pulse Rate [ From Monitor] Respiratory 20 20 20 Rate Respiratory Rate [Bilateral Throughout] Blood Pressure 114/55 104/55 112/50 O2 Sat by Pulse 97 98 98 Oximetry 07/13/20 07/13/20 07/13/20 02:00 02:30 03:00 Temperature Pulse Rate 60 59 L 58 L Pulse Rate [ Bilateral Throughout] Pulse Rate [ From Monitor] Respiratory 20 20 20 Rate Respiratory Rate [Bilateral Throughout] Blood Pressure 107/52 116/64 112/59 O2 Sat by Pulse 98 98 98 Oximetry 07/13/20 07/13/20 07/13/20 03:25 03:31 03:56 Temperature 98.9 F Pulse Rate 84 89 Pulse Rate [ Bilateral Throughout] Pulse Rate [ From Monitor] Respiratory 23 Rate Respiratory Rate [Bilateral Throughout] Blood Pressure 164/98 164/98 O2 Sat by Pulse 91 92 Oximetry 07/13/20 07/13/20 07/13/20 03:57 04:00 04:30 Temperature Pulse Rate 96 H 105 H Pulse Rate [ 92 H Bilateral Throughout] Pulse Rate [ 103 H From Monitor] Respiratory 22 22 Rate Respiratory 21 Rate [Bilateral Throughout] Blood Pressure 183/102 185/104 O2 Sat by Pulse 93 93 Oximetry 07/13/20 07/13/20 07/13/20 05:00 05:31 06:00 Temperature Pulse Rate 106 H 102 H 105 H Pulse Rate [ Bilateral Throughout] Pulse Rate [ From Monitor] Respiratory 20 20 21 Rate Respiratory Rate [Bilateral Throughout] Blood Pressure 206/104 178/103 198/95 O2 Sat by Pulse 92 94 91 Oximetry 07/13/20 07/13/20 07/13/20 06:31 07:00 07:30 Temperature Pulse Rate 91 H 97 H 95 H Pulse Rate [ Bilateral Throughout] Pulse Rate [ From Monitor] Respiratory 22 24 20 Rate Respiratory Rate [Bilateral Throughout] Blood Pressure 163/84 145/80 150/90 O2 Sat by Pulse 92 86 91 Oximetry 07/13/20 07/13/20 07/13/20 08:00 08:30 08:32 Temperature 99.7 F H Pulse Rate 100 H 100 H 94 H Pulse Rate [ Bilateral Throughout] Pulse Rate [ From Monitor] Respiratory 18 20 Rate Respiratory Rate [Bilateral Throughout] Blood Pressure 165/97 171/96 171/96 O2 Sat by Pulse 93 93 93 Oximetry 07/13/20 07/13/20 07/13/20 09:01 09:05 09:30 Temperature Pulse Rate 87 88 Pulse Rate [ 92 H Bilateral Throughout] Pulse Rate [ From Monitor] Respiratory 21 20 Rate Respiratory 20 Rate [Bilateral Throughout] Blood Pressure 148/87 157/91 O2 Sat by Pulse 94 92 Oximetry 07/13/20 07/13/20 07/13/20 10:00 10:30 11:00 Temperature Pulse Rate 95 H 94 H 87 Pulse Rate [ Bilateral Throughout] Pulse Rate [ From Monitor] Respiratory 24 20 20 Rate Respiratory Rate [Bilateral Throughout] Blood Pressure 146/84 133/71 132/75 O2 Sat by Pulse 91 84 93 Oximetry 07/13/20 07/13/20 07/13/20 11:30 11:54 12:07 Temperature 99.5 F Pulse Rate 92 H 75 Pulse Rate [ Bilateral Throughout] Pulse Rate [ From Monitor] Respiratory 20 Rate Respiratory Rate [Bilateral Throughout] Blood Pressure 131/79 118/59 O2 Sat by Pulse 93 94 Oximetry - Labs CBC & Chem 7: 07/13/20 07:20 07/13/20 07:20 Labs: Abnormal lab results 07/12/20 07/12/20 07/13/20 Range/Units 17:34 23:57 05:06 WBC (4.5-11.0) K/mm3 Seg Neuts % (Manual) (40.0-70.0) % Lymphocytes % (Manual) (13.4-35.0) % Seg Neutrophils # Man (1.8-7.7) K/mm3 Lymphocytes # (Manual) (1.2-5.4) K/mm3 D-Dimer (0-234) ng/mlDDU ABG pH (7.350-7.450) pH Units ABG pO2 (80.0-90.0) mm Hg ABG HCO3 (20.0-26.0) mmol/L ABG O2 Saturation (95.0-99.0) % Oxyhemoglobin (95.0-99.0) % Carbon Dioxide (22-30) mmol/L BUN (7-17) mg/dL Glucose (65-100) mg/dL POC Glucose 202 H 163 H 166 H (70-105) mg/dL Calcium (8.4-10.2) mg/dL Ferritin (10.0-200.0) ng/mL Lactate Dehydrogenase (91-180) units/L C-Reactive Protein (0.00-1.30) mg/dL Total Protein (6.3-8.2) g/dL Albumin (3.9-5) g/dL 07/13/20 07/13/20 07/13/20 Range/Units 07:20 07:20 07:20 WBC 20.5 H (4.5-11.0) K/mm3 Seg Neuts % (Manual) 93.0 H (40.0-70.0) % Lymphocytes % (Manual) 3.0 L (13.4-35.0) % Seg Neutrophils # Man 19.1 H (1.8-7.7) K/mm3 Lymphocytes # (Manual) 0.6 L (1.2-5.4) K/mm3 D-Dimer 826.36 H (0-234) ng/mlDDU ABG pH (7.350-7.450) pH Units ABG pO2 (80.0-90.0) mm Hg ABG HCO3 (20.0-26.0) mmol/L ABG O2 Saturation (95.0-99.0) % Oxyhemoglobin (95.0-99.0) % Carbon Dioxide 31 H (22-30) mmol/L BUN 25 H (7-17) mg/dL Glucose 163 H (65-100) mg/dL POC Glucose (70-105) mg/dL Calcium 8.1 L (8.4-10.2) mg/dL Ferritin (10.0-200.0) ng/mL Lactate Dehydrogenase 512 H (91-180) units/L C-Reactive Protein 1.80 H (0.00-1.30) mg/dL Total Protein 5.8 L (6.3-8.2) g/dL Albumin 3.2 L (3.9-5) g/dL 07/13/20 07/13/20 07/13/20 Range/Units 07:20 11:37 Unknown WBC (4.5-11.0) K/mm3 Seg Neuts % (Manual) (40.0-70.0) % Lymphocytes % (Manual) (13.4-35.0) % Seg Neutrophils # Man (1.8-7.7) K/mm3 Lymphocytes # (Manual) (1.2-5.4) K/mm3 D-Dimer (0-234) ng/mlDDU ABG pH 7.341 L (7.350-7.450) pH Units ABG pO2 56.5 L (80.0-90.0) mm Hg ABG HCO3 29.7 H (20.0-26.0) mmol/L ABG O2 Saturation 89.3 L (95.0-99.0) % Oxyhemoglobin 87.7 L (95.0-99.0) % Carbon Dioxide (22-30) mmol/L BUN (7-17) mg/dL Glucose (65-100) mg/dL POC Glucose 232 H (70-105) mg/dL Calcium (8.4-10.2) mg/dL Ferritin 219.8 H (10.0-200.0) ng/mL Lactate Dehydrogenase (91-180) units/L C-Reactive Protein (0.00-1.30) mg/dL Total Protein (6.3-8.2) g/dL Albumin (3.9-5) g/dL
--- NOTE | 2020-07-13 15:58 | Progress Note ---
Assessment and Plan Cultures: Blood cultures 07/07/2020 no growth today SARS COV2- IgG negative Sputum culture 07/08/2020 usual respiratory kerwin Blood culture 07/11/2020 no growth today A/P: 50-year-old female with CHF, asthma, hypertension, lupus was admitted to the hospital with complaints of fever, shortness of breath. Of note, she was seen last week due to an asthma exacerbation when her SARS-CoV-2 PCR and IgG were both negative. She was treated with steroids. She reportedly then went to [place] and tested positive for COVID-19 and was discharged from the hospital on 07/05/2020.: #Sepsis with septic shock: Patient was briefly on Levophed yesterday for oversedation on 07/11/2020, off pressors, fever improving. Repeat blood cultures negative. Urinalysis negative. #Acute asthma exacerbation: on nebs and steroids. #Acute hypoxic respiratory failure: Remains intubated #Critical COVID diagnosis at [place]: Repeat chest x-ray with bilateral pneumonia. D-dimer and ferritin went slightly up. #Lupus, immunocompromised host: On Plaquenil. Recs: -Follow-up blood culture, sputum culture -Continue cefepime 2 g IV once twice daily for now day 3 of 5 -Check MRSA PCR pending -SARS-CoV-2 IgG is negative, patient may benefit from COVID-19 plasma -Completed remdesivir -Continue steroids -prophylactic anticoagulation based on d-dimer -trend ferritin, LDH, d-dimer, CRP every 2-3 days for risk stratification and to assess disease progression -Monitor fever will follow Eneida Quiñones MD [facility] ([facility]) Office [phone] Subjective Date of service: 07/13/20 Principal diagnosis: Ac hypoxemic resp failure; PNA; COVID-19 infxn; SLE; Asthma exacerbation Interval history: Patient without fever for 24 hours, remains intubated. No pressors needed. Objective - Exam Narrative Exam: General appearance: Alert intubated Eyes: anicteric sclerae, moist conjunctivae; no lid-lag; PERRLA HENT: Normocephalic, Atraumatic; normal external ears, nares open, oropharynx endotracheal tube in place Neck: supple, tracheal midline, no JVD Lungs: Scattered rhonchi bilaterally CV: RRR no murmur Abdomen: Soft, non-tender; no masses or hepatosplenomegaly Extremities: no edema, no cyanosis Skin: No rash. Psych: no agitated Neuro: alert intubated - Constitutional Vitals: Vital Signs Temp Pulse Resp BP Pulse Ox 99.5 F 77 20 133/72 90 07/13/20 12:00 07/13/20 15:30 07/13/20 15:30 07/13/20 15:30 07/13/20 15:30 Temperature -Last 24 Hours Temperature 99.5 F Temperature 99.5 F Temperature 99.7 F Temperature 98.9 F Temperature 99.8 F Temperature 100.6 F Temperature 98.0 F - Labs CBC & Chem 7: 07/13/20 07:20 07/13/20 07:20 Labs: Abnormal lab results 07/12/20 07/12/20 07/13/20 Range/Units 17:34 23:57 05:06 WBC (4.5-11.0) K/mm3 Seg Neuts % (Manual) (40.0-70.0) % Lymphocytes % (Manual) (13.4-35.0) % Seg Neutrophils # Man (1.8-7.7) K/mm3 Lymphocytes # (Manual) (1.2-5.4) K/mm3 D-Dimer (0-234) ng/mlDDU ABG pH (7.350-7.450) pH Units ABG pO2 (80.0-90.0) mm Hg ABG HCO3 (20.0-26.0) mmol/L ABG O2 Saturation (95.0-99.0) % Oxyhemoglobin (95.0-99.0) % Carbon Dioxide (22-30) mmol/L BUN (7-17) mg/dL Glucose (65-100) mg/dL POC Glucose 202 H 163 H 166 H (70-105) mg/dL Calcium (8.4-10.2) mg/dL Ferritin (10.0-200.0) ng/mL Lactate Dehydrogenase (91-180) units/L C-Reactive Protein (0.00-1.30) mg/dL Total Protein (6.3-8.2) g/dL Albumin (3.9-5) g/dL 11/14/20 11/14/20 11/14/20 Range/Units 07:20 07:20 07:20 WBC 20.5 H (4.5-11.0) K/mm3 Seg Neuts % (Manual) 93.0 H (40.0-70.0) % Lymphocytes % (Manual) 3.0 L (13.4-35.0) % Seg Neutrophils # Man 19.1 H (1.8-7.7) K/mm3 Lymphocytes # (Manual) 0.6 L (1.2-5.4) K/mm3 D-Dimer 826.36 H (0-234) ng/mlDDU ABG pH (7.350-7.450) pH Units ABG pO2 (80.0-90.0) mm Hg ABG HCO3 (20.0-26.0) mmol/L ABG O2 Saturation (95.0-99.0) % Oxyhemoglobin (95.0-99.0) % Carbon Dioxide 31 H (22-30) mmol/L BUN 25 H (7-17) mg/dL Glucose 163 H (65-100) mg/dL POC Glucose (70-105) mg/dL Calcium 8.1 L (8.4-10.2) mg/dL Ferritin (10.0-200.0) ng/mL Lactate Dehydrogenase 512 H (91-180) units/L C-Reactive Protein 1.80 H (0.00-1.30) mg/dL Total Protein 5.8 L (6.3-8.2) g/dL Albumin 3.2 L (3.9-5) g/dL 07/13/20 07/13/20 07/13/20 Range/Units 07:20 11:37 Unknown WBC (4.5-11.0) K/mm3 Seg Neuts % (Manual) (40.0-70.0) % Lymphocytes % (Manual) (13.4-35.0) % Seg Neutrophils # Man (1.8-7.7) K/mm3 Lymphocytes # (Manual) (1.2-5.4) K/mm3 D-Dimer (0-234) ng/mlDDU ABG pH 7.341 L (7.350-7.450) pH Units ABG pO2 56.5 L (80.0-90.0) mm Hg ABG HCO3 29.7 H (20.0-26.0) mmol/L ABG O2 Saturation 89.3 L (95.0-99.0) % Oxyhemoglobin 87.7 L (95.0-99.0) % Carbon Dioxide (22-30) mmol/L BUN (7-17) mg/dL Glucose (65-100) mg/dL POC Glucose 232 H (70-105) mg/dL Calcium (8.4-10.2) mg/dL Ferritin 219.8 H (10.0-200.0) ng/mL Lactate Dehydrogenase (91-180) units/L C-Reactive Protein (0.00-1.30) mg/dL Total Protein (6.3-8.2) g/dL Albumin (3.9-5) g/dL
--- NOTE | 2020-07-13 16:48 | Progress Note ---
Assessment and Plan Acute hypoxemic respiratory failure, now on MVS Bilateral pneumonia, left greater than right lungs. COVID-19 infection. History of congestive heart failure. History of lupus erythematosus. Leukocytosis. Tobacco use disorder. Acute asthma exacerbation. History of hypertension. Obesity - continue Lantus 5 units SQ q24h - continue low dose SSI - continue Seroquel 200 mg p.o. bid - continue to wean supplemental oxygen for target O2 sat's > 92% acutely - continue care as below otherwise; - continue airborne and contact isolation - follow repeat COVID-19 testing - continue Zinc & Vit C supplementaion - complete Remdesivir - empiric AB's coverage per ID rec's otherwise - continue systemic steroids for Asthma / severe COVID infection - continue Daily SAT and SBT assessment as tolerated - VAP bundle addressed - continue lung protective strategies - continue bronchodilators with pulmonary hygiene per RT - wean per pulmonary driven protocols otherwise - accuchecks with glycemic control per SSI (While critically ill target blood glucose of 140-180 mg/dL; avoid hypoglycemia) - sedation prn for target RASS -1 to -2 - avoid nephrotoxins, renally dose all medications - continue to avoid benzodiazepine's, reduce the possibility of delirium - prn analgesia per CPOT score - Maintenance of sleep-wake cycle, avoid delirium - continue enteral nutritional support at goal rate as tolerated - G.I. & VTE prophylaxis - PT/OT/ROM exercises - continue mobility protocols for pressure ulcer prophylaxis - Monitor hemodynamics closely - continue other care per attending / other consultants - discharge planning ongoing concurrently .... Re-evaluate in am & prn CONDITION: CRITICAL PROGNOSIS: GUARDED CODE STATUS: FULL CODE The high probability of a clinically significant, sudden or life-threatening deterioration of the [respiratory, cardiovascular & neurologic] system(s) required my full and direct attention, intervention and personal management. The aggregate critical care time was [35] minutes without overlap. Time includes spent on; [x] Data Review and interpretation [x] Patient assessment and monitoring of vital signs [x] Documentation [x] Medication orders and management Subjective Date of service: 07/13/20 Principal diagnosis: Ac hypoxemic resp failure; PNA; COVID-19 infxn; SLE; Asthma exacerbation Interval history: Patient is seen today for: Acute hypoxemic respiratory failure; Bilateral pneumonia; COVID-19 infection; H/O CHF; SLE; Acute asthma exacerbation. HTN; Obesity Seen and examined at bedside; 24hour events reviewed; nursing and respiratory care staff consulted; no adverse overnight events reported to me; resting p eacefully in bed; oxygenation still labile but FiO2 down to 50% with peep at 12 cm H2O; she denies pain; No N/V/F/C Objective Vital Signs - 12hr 07/13/20 07/13/20 07/13/20 05:00 05:31 06:00 Temperature Pulse Rate 106 H 102 H 105 H Pulse Rate [ Bilateral Throughout] Pulse Rate [ From Monitor] Respiratory 20 20 21 Rate Respiratory Rate [Bilateral Throughout] Respiratory Rate [Chest] Blood Pressure 206/104 178/103 198/95 O2 Sat by Pulse 92 94 91 Oximetry 07/13/20 07/13/20 07/13/20 06:31 07:00 07:30 Temperature Pulse Rate 91 H 97 H 95 H Pulse Rate [ Bilateral Throughout] Pulse Rate [ From Monitor] Respiratory 22 24 20 Rate Respiratory Rate [Bilateral Throughout] Respiratory Rate [Chest] Blood Pressure 163/84 145/80 150/90 O2 Sat by Pulse 92 86 91 Oximetry 07/13/20 07/13/20 07/13/20 08:00 08:30 08:32 Temperature 99.7 F H Pulse Rate 100 H 100 H 94 H Pulse Rate [ Bilateral Throughout] Pulse Rate [ 103 H From Monitor] Respiratory 18 20 Rate Respiratory Rate [Bilateral Throughout] Respiratory Rate [Chest] Blood Pressure 165/97 171/96 171/96 O2 Sat by Pulse 93 93 93 Oximetry 07/13/20 07/13/20 07/13/20 09:01 09:05 09:30 Temperature Pulse Rate 87 88 Pulse Rate [ 92 H Bilateral Throughout] Pulse Rate [ From Monitor] Respiratory 21 20 Rate Respiratory 20 Rate [Bilateral Throughout] Respiratory Rate [Chest] Blood Pressure 148/87 157/91 O2 Sat by Pulse 94 92 Oximetry 07/13/20 07/13/20 07/13/20 10:00 10:30 11:00 Temperature Pulse Rate 95 H 94 H 87 Pulse Rate [ Bilateral Throughout] Pulse Rate [ From Monitor] Respiratory 24 20 20 Rate Respiratory Rate [Bilateral Throughout] Respiratory 20 Rate [Chest] Blood Pressure 146/84 133/71 132/75 O2 Sat by Pulse 91 84 93 Oximetry 07/13/20 07/13/20 07/13/20 11:30 11:54 11:59 Temperature 99.5 F Pulse Rate 92 H Pulse Rate [ Bilateral Throughout] Pulse Rate [ 77 From Monitor] Respiratory 20 20 Rate Respiratory Rate [Bilateral Throughout] Respiratory Rate [Chest] Blood Pressure 131/79 O2 Sat by Pulse 93 96 Oximetry 07/13/20 07/13/20 07/13/20 12:00 12:07 12:30 Temperature 99.5 F Pulse Rate 77 75 79 Pulse Rate [ Bilateral Throughout] Pulse Rate [ From Monitor] Respiratory 20 20 Rate Respiratory Rate [Bilateral Throughout] Respiratory Rate [Chest] Blood Pressure 118/59 118/59 125/62 O2 Sat by Pulse 92 94 88 Oximetry 07/13/20 07/13/20 07/13/20 12:45 13:00 13:30 Temperature Pulse Rate 71 61 Pulse Rate [ 75 Bilateral Throughout] Pulse Rate [ From Monitor] Respiratory 20 20 Rate Respiratory 20 Rate [Bilateral Throughout] Respiratory Rate [Chest] Blood Pressure 112/61 121/69 O2 Sat by Pulse 94 98 Oximetry 07/13/20 07/13/20 07/13/20 14:00 14:30 15:00 Temperature Pulse Rate 72 83 82 Pulse Rate [ Bilateral Throughout] Pulse Rate [ From Monitor] Respiratory 20 20 20 Rate Respiratory Rate [Bilateral Throughout] Respiratory Rate [Chest] Blood Pressure 124/79 142/82 134/74 O2 Sat by Pulse 98 90 88 Oximetry 07/13/20 07/13/20 15:30 16:00 Temperature 98.8 F Pulse Rate 77 Pulse Rate [ Bilateral Throughout] Pulse Rate [ From Monitor] Respiratory 20 Rate Respiratory Rate [Bilateral Throughout] Respiratory Rate [Chest] Blood Pressure 133/72 O2 Sat by Pulse 90 Oximetry Constitutional: no acute distress, other (middle aged obese female with mildly increased respiratory effort at rest on MVS) Eyes: non-icteric ENT: oropharynx moist, other (ETT 24 cm YANET) Neck: supple, no lymphadenopathy, no JVD Effort: mildly labored Ascultation: Bilateral: diminished breath sounds, rhonchi Percussion: Bilateral: not dull Cardiovascular: regular rate and rhythm Gastrointestinal: normoactive bowel sounds, soft, non-tender, non-distended Integumentary: normal Extremities: no cyanosis, no edema, pulses normal, no ischemia or petechiae Neurologic: normal mental status, non-focal exam, pupils equal and round, motor strength normal and Psychiatric: other (sedated) CBC and BMP: 11/14/20 07:20 07/13/20 07:20 ABG, PT/INR, D-dimer: ABG ABG pH 7.341 pH Units (7.350-7.450) L 07/13/20 Unknown POC ABG pCO2 33.6 mmHg (32.0-48.0) 07/12/20 04:01 ABG pCO2 56.2 mm Hg 07/13/20 Unknown POC ABG pO2 86.5 mmHg (83-108) 07/12/20 04:01 ABG pO2 56.5 mm Hg (80.0-90.0) L 07/13/20 Unknown POC ABG HCO3 23.6 07/12/20 04:01 ABG O2 Saturation 89.3 % (95.0-99.0) L 07/13/20 Unknown PT/INR, D-dimer D-Dimer 826.36 ng/mlDDU (0-234) H 07/13/20 07:20 Abnormal lab findings: Abnormal Labs 07/06/20 07/06/20 07/07/20 05:24 17:16 04:50 WBC 13.5 H 12.7 H RBC Hgb Lymph % (Auto) Lymph # (Auto) Seg Neuts % (Manual) 86.0 H 87.0 H Lymphocytes % (Manual) 6.0 L 9.0 L Seg Neutrophils # Seg Neutrophils # Man 11.6 H 11.0 H Lymphocytes # (Manual) 0.8 L 1.1 L D-Dimer ABG pH ABG pO2 ABG HCO3 ABG O2 Saturation ABG Hemoglobin ABG Glucose Oxyhemoglobin Chloride Carbon Dioxide BUN Glucose POC Glucose Calcium Ferritin Lactate Dehydrogenase 242 H C-Reactive Protein 7.30 H Total Protein Albumin Arterial Blood Glucose Arterial Blood Ionized Calcium 07/07/20 07/07/20 07/07/20 04:50 14:22 14:22 WBC RBC Hgb Lymph % (Auto) Lymph # (Auto) Seg Neuts % (Manual) Lymphocytes % (Manual) Seg Neutrophils # Seg Neutrophils # Man Lymphocytes # (Manual) D-Dimer ABG pH ABG pO2 ABG HCO3 ABG O2 Saturation ABG Hemoglobin ABG Glucose Oxyhemoglobin Chloride Carbon Dioxide BUN 18 H Glucose 138 H POC Glucose Calcium Ferritin 228.2 H Lactate Dehydrogenase 277 H C-Reactive Protein Total Protein 5.9 L Albumin 3.4 L Arterial Blood Glucose Arterial Blood Ionized Calcium 07/08/20 07/08/20 07/08/20 11:18 12:57 16:13 WBC RBC Hgb Lymph % (Auto) Lymph # (Auto) Seg Neuts % (Manual) Lymphocytes % (Manual) Seg Neutrophils # Seg Neutrophils # Man Lymphocytes # (Manual) D-Dimer ABG pH ABG pO2 39.3 L* ABG HCO3 ABG O2 Saturation 76.8 L ABG Hemoglobin ABG Glucose Oxyhemoglobin 75.3 L Chloride Carbon Dioxide 20 L D BUN Glucose 135 H POC Glucose 106 H Calcium 8.0 L Ferritin Lactate Dehydrogenase C-Reactive Protein Total Protein Albumin Arterial Blood Glucose Arterial Blood Ionized Calcium 07/08/20 07/08/20 07/09/20 17:04 18:45 04:00 WBC 15.6 H RBC Hgb Lymph % (Auto) 4.7 L Lymph # (Auto) 0.7 L Seg Neuts % (Manual) Lymphocytes % (Manual) Seg Neutrophils # 14.2 H Seg Neutrophils # Man Lymphocytes # (Manual) D-Dimer ABG pH ABG pO2 181.8 H ABG HCO3 ABG O2 Saturation 99.1 H ABG Hemoglobin 11.4 L ABG Glucose Oxyhemoglobin Chloride Carbon Dioxide BUN Glucose POC Glucose 117 H Calcium Ferritin Lactate Dehydrogenase C-Reactive Protein Total Protein Albumin Arterial Blood Glucose Arterial Blood Ionized Calcium 07/09/20 07/09/20 07/09/20 04:00 04:00 04:49 WBC RBC Hgb Lymph % (Auto) Lymph # (Auto) Seg Neuts % (Manual) Lymphocytes % (Manual) Seg Neutrophils # Seg Neutrophils # Man Lymphocytes # (Manual) D-Dimer ABG pH ABG pO2 ABG HCO3 26.2 H ABG O2 Saturation ABG Hemoglobin 11.2 L ABG Glucose Oxyhemoglobin 94.9 L Chloride Carbon Dioxide BUN Glucose 158 H POC Glucose Calcium 8.2 L Ferritin 320.0 H Lactate Dehydrogenase 391 H C-Reactive Protein 9.50 H Total Protein 5.9 L Albumin 3.2 L Arterial Blood Glucose Arterial Blood Ionized Calcium 07/09/20 07/09/20 07/09/20 11:56 17:49 23:39 WBC RBC Hgb Lymph % (Auto) Lymph # (Auto) Seg Neuts % (Manual) Lymphocytes % (Manual) Seg Neutrophils # Seg Neutrophils # Man Lymphocytes # (Manual) D-Dimer ABG pH ABG pO2 ABG HCO3 ABG O2 Saturation ABG Hemoglobin ABG Glucose Oxyhemoglobin Chloride Carbon Dioxide BUN Glucose POC Glucose 156 H 119 H 145 H Calcium Ferritin Lactate Dehydrogenase C-Reactive Protein Total Protein Albumin Arterial Blood Glucose Arterial Blood Ionized Calcium 07/10/20 07/10/20 07/10/20 03:32 05:26 11:22 WBC RBC Hgb Lymph % (Auto) Lymph # (Auto) Seg Neuts % (Manual) Lymphocytes % (Manual) Seg Neutrophils # Seg Neutrophils # Man Lymphocytes # (Manual) D-Dimer ABG pH ABG pO2 75.7 L ABG HCO3 27.5 H ABG O2 Saturation ABG Hemoglobin 9.3 L ABG Glucose Oxyhemoglobin 94.7 L Chloride Carbon Dioxide BUN Glucose POC Glucose 156 H 148 H Calcium Ferritin Lactate Dehydrogenase C-Reactive Protein Total Protein Albumin Arterial Blood Glucose Arterial Blood Ionized Calcium 07/10/20 07/10/20 07/10/20 12:10 12:10 18:20 WBC 14.1 H RBC 3.33 L Hgb 9.9 L Lymph % (Auto) Lymph # (Auto) Seg Neuts % (Manual) 89.0 H Lymphocytes % (Manual) 8.0 L Seg Neutrophils # Seg Neutrophils # Man 12.5 H Lymphocytes # (Manual) 1.1 L D-Dimer ABG pH ABG pO2 ABG HCO3 ABG O2 Saturation ABG Hemoglobin ABG Glucose Oxyhemoglobin Chloride Carbon Dioxide BUN 21 H Glucose 154 H POC Glucose 181 H Calcium 8.0 L Ferritin Lactate Dehydrogenase C-Reactive Protein Total Protein 5.4 L Albumin 3.0 L Arterial Blood Glucose Arterial Blood Ionized Calcium 07/10/20 07/11/20 07/11/20 23:51 04:05 05:43 WBC RBC Hgb Lymph % (Auto) Lymph # (Auto) Seg Neuts % (Manual) Lymphocytes % (Manual) Seg Neutrophils # Seg Neutrophils # Man Lymphocytes # (Manual) D-Dimer ABG pH 7.348 L ABG pO2 93.6 H ABG HCO3 28.5 H ABG O2 Saturation ABG Hemoglobin 10.1 L ABG Glucose Oxyhemoglobin Chloride Carbon Dioxide BUN Glucose POC Glucose 116 H 132 H Calcium Ferritin Lactate Dehydrogenase C-Reactive Protein Total Protein Albumin Arterial Blood Glucose Arterial Blood Ionized Calcium 07/11/20 07/11/20 07/11/20 09:11 09:11 09:11 WBC 15.8 H RBC 3.44 L Hgb Lymph % (Auto) Lymph # (Auto) Seg Neuts % (Manual) 92.0 H Lymphocytes % (Manual) 4.0 L Seg Neutrophils # Seg Neutrophils # Man 14.5 H Lymphocytes # (Manual) 0.6 L D-Dimer 360.61 H ABG pH ABG pO2 ABG HCO3 ABG O2 Saturation ABG Hemoglobin ABG Glucose Oxyhemoglobin Chloride 107.1 H Carbon Dioxide BUN 22 H Glucose 149 H POC Glucose Calcium 7.8 L Ferritin Lactate Dehydrogenase 483 H C-Reactive Protein 2.30 H Total Protein 4.9 L Albumin 3.0 L Arterial Blood Glucose Arterial Blood Ionized Calcium 07/11/20 07/11/20 07/11/20 09:11 12:16 17:55 WBC RBC Hgb Lymph % (Auto) Lymph # (Auto) Seg Neuts % (Manual) Lymphocytes % (Manual) Seg Neutrophils # Seg Neutrophils # Man Lymphocytes # (Manual) D-Dimer ABG pH ABG pO2 ABG HCO3 ABG O2 Saturation ABG Hemoglobin ABG Glucose Oxyhemoglobin Chloride Carbon Dioxide BUN Glucose POC Glucose 157 H 166 H Calcium Ferritin 371.2 H Lactate Dehydrogenase C-Reactive Protein Total Protein Albumin Arterial Blood Glucose Arterial Blood Ionized Calcium 07/12/20 07/12/20 07/12/20 00:32 04:00 04:00 WBC RBC 3.52 L Hgb Lymph % (Auto) Lymph # (Auto) Seg Neuts % (Manual) 90.0 H Lymphocytes % (Manual) 4.0 L Seg Neutrophils # Seg Neutrophils # Man 9.5 H Lymphocytes # (Manual) 0.4 L D-Dimer ABG pH ABG pO2 ABG HCO3 ABG O2 Saturation ABG Hemoglobin ABG Glucose Oxyhemoglobin Chloride Carbon Dioxide 31 H BUN 21 H Glucose 175 H POC Glucose 178 H Calcium 8.0 L Ferritin Lactate Dehydrogenase C-Reactive Protein Total Protein 5.4 L Albumin 3.0 L Arterial Blood Glucose Arterial Blood Ionized Calcium 07/12/20 07/12/20 07/12/20 04:01 05:47 12:09 WBC RBC Hgb Lymph % (Auto) Lymph # (Auto) Seg Neuts % (Manual) Lymphocytes % (Manual) Seg Neutrophils # Seg Neutrophils # Man Lymphocytes # (Manual) D-Dimer ABG pH 7.456 H ABG pO2 ABG HCO3 ABG O2 Saturation ABG Hemoglobin 10.6 L ABG Glucose 177 H Oxyhemoglobin Chloride Carbon Dioxide BUN Glucose POC Glucose 185 H 227 H Calcium Ferritin Lactate Dehydrogenase C-Reactive Protein Total Protein Albumin Arterial Blood Glucose 177 H Arterial Blood Ionized Calcium 4.5 L 07/12/20 07/12/20 07/13/20 17:34 23:57 05:06 WBC RBC Hgb Lymph % (Auto) Lymph # (Auto) Seg Neuts % (Manual) Lymphocytes % (Manual) Seg Neutrophils # Seg Neutrophils # Man Lymphocytes # (Manual) D-Dimer ABG pH ABG pO2 ABG HCO3 ABG O2 Saturation ABG Hemoglobin ABG Glucose Oxyhemoglobin Chloride Carbon Dioxide BUN Glucose POC Glucose 202 H 163 H 166 H Calcium Ferritin Lactate Dehydrogenase C-Reactive Protein Total Protein Albumin Arterial Blood Glucose Arterial Blood Ionized Calcium 07/13/20 07/13/20 07/13/20 07:20 07:20 07:20 WBC 20.5 H RBC Hgb Lymph % (Auto) Lymph # (Auto) Seg Neuts % (Manual) 93.0 H Lymphocytes % (Manual) 3.0 L Seg Neutrophils # Seg Neutrophils # Man 19.1 H Lymphocytes # (Manual) 0.6 L D-Dimer 826.36 H ABG pH ABG pO2 ABG HCO3 ABG O2 Saturation ABG Hemoglobin ABG Glucose Oxyhemoglobin Chloride Carbon Dioxide 31 H BUN 25 H Glucose 163 H POC Glucose Calcium 8.1 L Ferritin Lactate Dehydrogenase 512 H C-Reactive Protein 1.80 H Total Protein 5.8 L Albumin 3.2 L Arterial Blood Glucose Arterial Blood Ionized Calcium 07/13/20 07/13/20 07/13/20 07:20 11:37 Unknown WBC RBC Hgb Lymph % (Auto) Lymph # (Auto) Seg Neuts % (Manual) Lymphocytes % (Manual) Seg Neutrophils # Seg Neutrophils # Man Lymphocytes # (Manual) D-Dimer ABG pH 7.341 L ABG pO2 56.5 L ABG HCO3 29.7 H ABG O2 Saturation 89.3 L ABG Hemoglobin ABG Glucose Oxyhemoglobin 87.7 L Chloride Carbon Dioxide BUN Glucose POC Glucose 232 H Calcium Ferritin 219.8 H Lactate Dehydrogenase C-Reactive Protein Total Protein Albumin Arterial Blood Glucose Arterial Blood Ionized Calcium Chest x-ray: image reviewed (significant bilateral improvement in infiltrates) Allied health notes reviewed: nursing
[2020-07-13] MEDS: INSULIN GLARGINE 100 UNITS/ML SUB-Q SCH (17:51)
[2020-07-13] MEDS: MIDAZOLAM 100 MG in SODIUM CHLORIDE 0.9% 80 ML IV SCH (19:03)
[2020-07-13] MEDS ORDERED: SODIUM CHLORIDE 0.9% 1000 ML 1,000 ML ONE (21:34)
[2020-07-13] MEDS: MONTELUKAST 10 MG TAB PO SCH (21:52)
[2020-07-14] MEDS: ALBUTEROL 2.5 MG/3 ML NEBU IH SCH ×6 (04:03→19:47)
[2020-07-14] MEDS: methylPREDNISolone Sod Succinate 125 MG/2 ML INJ IV SCH ×4 (05:28→23:33)
[2020-07-14] MEDS: INSULIN REGULAR, HUMAN 100 UNIT/ML 3ML VIAL SUB-Q SCH ×4 (06:03→23:26)
[2020-07-14] MEDS: BUDESONIDE 0.5 MG/2 ML NEBU IH SCH ×2 (08:58→19:39)
[2020-07-14] MEDS: ARFORMOTEROL 15 MCG/2 ML NEBU IH SCH ×2 (08:58→19:39)
[2020-07-14] MEDS: fentaNYL DRIP Premix 2,000 MCG/100 ML BAG IV SCH ×3 (10:16→19:54)
[2020-07-14] MEDS: CEFEPIME/NS 2 GM/100 ML 2 GM/100 ML BAG IV SCH ×2 (10:19→21:26)
[2020-07-14] MEDS: HYDROXYCHLOROQUINE 200 MG TAB PO SCH (10:20)
[2020-07-14] MEDS: LANSOPRAZOLE 30 MG SOLUTAB FEEDTUBE SCH (10:20)
[2020-07-14] MEDS: ENOXAPARIN 30 MG/0.3 ML INJ SUB-Q SCH ×2 (10:20→21:27)
[2020-07-14] MEDS: ZINC SULFATE 220 MG CAP PO SCH ×2 (10:21→21:26)
[2020-07-14] MEDS: ASPIRIN 81 MG TAB CHEW PO SCH (10:21)
[2020-07-14] MEDS: VENLAFAXINE 37.5 MG TAB PO SCH (10:21)
[2020-07-14] MEDS: QUEtiapine 200 MG TAB PO SCH ×2 (10:21→21:28)
[2020-07-14] MEDS: ASCORBIC ACID 500 MG TAB PO SCH ×2 (10:21→21:26)
--- NOTE | 2020-07-14 16:33 | Progress Note ---
Assessment and Plan Acute hypoxemic respiratory failure, now on MVS Bilateral pneumonia, left greater than right lungs. COVID-19 infection. History of congestive heart failure. History of lupus erythematosus. Leukocytosis. Tobacco use disorder. Acute asthma exacerbation. History of hypertension. Obesity - reduce rate to 16/min - reduce peep to 10 - hopefully begin SBT's next 24-48 hours - continue care as below otherwise; - continue Lantus 5 units SQ q24h - continue low dose SSI - continue Seroquel 200 mg p.o. bid - continue to wean supplemental oxygen for target O2 sat's > 92% acutely - continue airborne and contact isolation - follow repeat COVID-19 testing - continue Zinc & Vit C supplementaion - complete Remdesivir - empiric AB's coverage per ID rec's otherwise - continue systemic steroids for Asthma / severe COVID infection - continue Daily SAT and SBT assessment as tolerated - VAP bundle addressed - continue lung protective strategies - continue bronchodilators with pulmonary hygiene per RT - wean per pulmonary driven protocols otherwise - accuchecks with glycemic control per SSI (While critically ill target blood glucose of 140-180 mg/dL; avoid hypoglycemia) - sedation prn for target RASS -1 to -2 - avoid nephrotoxins, renally dose all medications - continue to avoid benzodiazepine's, reduce the possibility of delirium - prn analgesia per CPOT score - Maintenance of sleep-wake cycle, avoid delirium - continue enteral nutritional support at goal rate as tolerated - G.I. & VTE prophylaxis - PT/OT/ROM exercises - continue mobility protocols for pressure ulcer prophylaxis - Monitor hemodynamics closely - continue other care per attending / other consultants - discharge planning ongoing concurrently .... Re-evaluate in am & prn CONDITION: CRITICAL PROGNOSIS: GUARDED CODE STATUS: FULL CODE The high probability of a clinically significant, sudden or life-threatening deterioration of the [respiratory, cardiovascular & neurologic] system(s) required my full and direct attention, intervention and personal management. The aggregate critical care time was [32] minutes without overlap. Time includes spent on; [x] Data Review and interpretation [x] Patient assessment and monitoring of vital signs [x] Documentation [x] Medication orders and management Subjective Date of service: 07/14/20 Principal diagnosis: Ac hypoxemic resp failure; PNA; COVID-19 infxn; SLE; Asthma exacerbation Interval history: Patient is seen today for: Acute hypoxemic respiratory failure; Bilateral pneumonia; COVID-19 infection; H/O CHF; SLE; Acute asthma exacerbation. HTN; Obesity Seen and examined at bedside; 24hour events reviewed; nursing and respiratory care staff consulted; no adverse overnight events reported to me; resting peacefully in bed; alert; remains on MVS; denies N/V/F/C Objective Vital Signs - 12hr 07/14/20 07/14/20 07/14/20 05:00 05:30 06:00 Temperature Pulse Rate 57 L 56 L 85 Pulse Rate [ Bilateral Throughout] Pulse Rate [ From Monitor] Respiratory 20 20 16 Rate Respiratory Rate [Bilateral Throughout] Respiratory Rate [Chest] Blood Pressure 114/53 121/59 129/66 O2 Sat by Pulse 98 98 98 Oximetry 07/14/20 07/14/20 07/14/20 06:30 07:00 07:30 Temperature Pulse Rate 73 68 59 L Pulse Rate [ Bilateral Throughout] Pulse Rate [ From Monitor] Respiratory 17 20 20 Rate Respiratory Rate [Bilateral Throughout] Respiratory Rate [Chest] Blood Pressure 118/54 115/54 114/57 O2 Sat by Pulse 92 91 97 Oximetry 07/14/20 07/14/20 07/14/20 08:00 08:30 08:55 Temperature 98.0 F Pulse Rate 63 58 L 65 Pulse Rate [ Bilateral Throughout] Pulse Rate [ 58 L From Monitor] Respiratory 20 20 Rate Respiratory Rate [Bilateral Throughout] Respiratory Rate [Chest] Blood Pressure 112/60 114/54 114/54 O2 Sat by Pulse 94 98 94 Oximetry 07/14/20 07/14/20 07/14/20 09:01 09:30 09:46 Temperature Pulse Rate 64 73 Pulse Rate [ 73 Bilateral Throughout] Pulse Rate [ From Monitor] Respiratory 19 21 Rate Respiratory 20 Rate [Bilateral Throughout] Respiratory Rate [Chest] Blood Pressure 134/77 127/66 O2 Sat by Pulse 96 91 Oximetry 07/14/20 07/14/20 07/14/20 10:00 10:30 11:00 Temperature Pulse Rate 74 88 76 Pulse Rate [ Bilateral Throughout] Pulse Rate [ From Monitor] Respiratory 20 24 20 Rate Respiratory Rate [Bilateral Throughout] Respiratory 20 Rate [Chest] Blood Pressure 140/74 118/60 117/65 O2 Sat by Pulse 94 90 88 Oximetry 07/14/20 07/14/20 07/14/20 11:30 12:00 12:13 Temperature 98.5 F Pulse Rate 63 57 L 56 L Pulse Rate [ Bilateral Throughout] Pulse Rate [ 56 L From Monitor] Respiratory 20 20 Rate Respiratory Rate [Bilateral Throughout] Respiratory Rate [Chest] Blood Pressure 110/55 113/62 113/62 O2 Sat by Pulse 97 98 98 Oximetry 07/14/20 07/14/20 07/14/20 12:30 13:00 13:13 Temperature Pulse Rate 56 L 56 L Pulse Rate [ 57 L Bilateral Throughout] Pulse Rate [ From Monitor] Respiratory 20 20 Rate Respiratory 20 Rate [Bilateral Throughout] Respiratory Rate [Chest] Blood Pressure 114/63 119/63 O2 Sat by Pulse 98 98 Oximetry 07/14/20 07/14/20 07/14/20 13:30 14:00 14:30 Temperature Pulse Rate 55 L 55 L 53 L Pulse Rate [ Bilateral Throughout] Pulse Rate [ From Monitor] Respiratory 20 20 20 Rate Respiratory Rate [Bilateral Throughout] Respiratory Rate [Chest] Blood Pressure 117/61 116/65 119/70 O2 Sat by Pulse 98 98 98 Oximetry 07/14/20 07/14/20 07/14/20 15:00 15:30 16:00 Temperature 98.9 F Pulse Rate 53 L 62 Pulse Rate [ Bilateral Throughout] Pulse Rate [ From Monitor] Respiratory 20 20 Rate Respiratory Rate [Bilateral Throughout] Respiratory Rate [Chest] Blood Pressure 118/70 128/77 O2 Sat by Pulse 97 99 Oximetry 07/14/20 16:19 Temperature Pulse Rate 60 Pulse Rate [ Bilateral Throughout] Pulse Rate [ From Monitor] Respiratory Rate Respiratory Rate [Bilateral Throughout] Respiratory Rate [Chest] Blood Pressure 120/63 O2 Sat by Pulse 98 Oximetry Constitutional: no acute distress, other (middle aged obese female with mildly increased respiratory effort at rest on MVS) Eyes: non-icteric ENT: oropharynx moist, other (ETT 24 cm YANET) Neck: supple, no lymphadenopathy, no JVD Effort: mildly labored Ascultation: Bilateral: diminished breath sounds, rhonchi Percussion: Bilateral: not dull Cardiovascular: regular rate and rhythm Gastrointestinal: normoactive bowel sounds, soft, non-tender, non-distended Integumentary: normal Extremities: no cyanosis, no edema, pulses normal, no ischemia or petechiae Neurologic: normal mental status, non-focal exam, pupils equal and round, motor strength normal and Psychiatric: other (sedated) CBC and BMP: 11/14/20 07:20 07/13/20 07:20 ABG, PT/INR, D-dimer: ABG ABG pH 7.426 (7.320-7.450) 07/14/20 05:22 POC ABG pCO2 47.4 mmHg (32.0-48.0) 07/14/20 05:22 ABG pCO2 56.2 mm Hg 07/13/20 Unknown POC ABG pO2 133.0 mmHg (83-108) H 07/14/20 05:22 ABG pO2 56.5 mm Hg (80.0-90.0) L 07/13/20 Unknown POC ABG HCO3 30.5 07/14/20 05:22 ABG O2 Saturation 89.3 % (95.0-99.0) L 07/13/20 Unknown PT/INR, D-dimer D-Dimer 826.36 ng/mlDDU (0-234) H 07/13/20 07:20 Abnormal lab findings: Abnormal Labs 07/06/20 07/06/20 07/07/20 05:24 17:16 04:50 WBC 13.5 H 12.7 H RBC Hgb Lymph % (Auto) Lymph # (Auto) Seg Neuts % (Manual) 86.0 H 87.0 H Lymphocytes % (Manual) 6.0 L 9.0 L Seg Neutrophils # Seg Neutrophils # Man 11.6 H 11.0 H Lymphocytes # (Manual) 0.8 L 1.1 L D-Dimer ABG pH POC ABG pO2 ABG pO2 ABG HCO3 ABG O2 Saturation ABG Hemoglobin ABG Glucose Oxyhemoglobin Chloride Carbon Dioxide BUN Glucose POC Glucose Calcium Ferritin Lactate Dehydrogenase 242 H C-Reactive Protein 7.30 H Total Protein Albumin Arterial Blood Glucose Arterial Blood Ionized Calcium 07/07/20 07/07/20 07/07/20 04:50 14:22 14:22 WBC RBC Hgb Lymph % (Auto) Lymph # (Auto) Seg Neuts % (Manual) Lymphocytes % (Manual) Seg Neutrophils # Seg Neutrophils # Man Lymphocytes # (Manual) D-Dimer ABG pH POC ABG pO2 ABG pO2 ABG HCO3 ABG O2 Saturation ABG Hemoglobin ABG Glucose Oxyhemoglobin Chloride Carbon Dioxide BUN 18 H Glucose 138 H POC Glucose Calcium Ferritin 228.2 H Lactate Dehydrogenase 277 H C-Reactive Protein Total Protein 5.9 L Albumin 3.4 L Arterial Blood Glucose Arterial Blood Ionized Calcium 07/08/20 07/08/20 07/08/20 11:18 12:57 16:13 WBC RBC Hgb Lymph % (Auto) Lymph # (Auto) Seg Neuts % (Manual) Lymphocytes % (Manual) Seg Neutrophils # Seg Neutrophils # Man Lymphocytes # (Manual) D-Dimer ABG pH POC ABG pO2 ABG pO2 39.3 L* ABG HCO3 ABG O2 Saturation 76.8 L ABG Hemoglobin ABG Glucose Oxyhemoglobin 75.3 L Chloride Carbon Dioxide 20 L D BUN Glucose 135 H POC Glucose 106 H Calcium 8.0 L Ferritin Lactate Dehydrogenase C-Reactive Protein Total Protein Albumin Arterial Blood Glucose Arterial Blood Ionized Calcium 07/08/20 07/08/20 07/09/20 17:04 18:45 04:00 WBC 15.6 H RBC Hgb Lymph % (Auto) 4.7 L Lymph # (Auto) 0.7 L Seg Neuts % (Manual) Lymphocytes % (Manual) Seg Neutrophils # 14.2 H Seg Neutrophils # Man Lymphocytes # (Manual) D-Dimer ABG pH POC ABG pO2 ABG pO2 181.8 H ABG HCO3 ABG O2 Saturation 99.1 H ABG Hemoglobin 11.4 L ABG Glucose Oxyhemoglobin Chloride Carbon Dioxide BUN Glucose POC Glucose 117 H Calcium Ferritin Lactate Dehydrogenase C-Reactive Protein Total Protein Albumin Arterial Blood Glucose Arterial Blood Ionized Calcium 07/09/20 07/09/20 07/09/20 04:00 04:00 04:49 WBC RBC Hgb Lymph % (Auto) Lymph # (Auto) Seg Neuts % (Manual) Lymphocytes % (Manual) Seg Neutrophils # Seg Neutrophils # Man Lymphocytes # (Manual) D-Dimer ABG pH POC ABG pO2 ABG pO2 ABG HCO3 26.2 H ABG O2 Saturation ABG Hemoglobin 11.2 L ABG Glucose Oxyhemoglobin 94.9 L Chloride Carbon Dioxide BUN Glucose 158 H POC Glucose Calcium 8.2 L Ferritin 320.0 H Lactate Dehydrogenase 391 H C-Reactive Protein 9.50 H Total Protein 5.9 L Albumin 3.2 L Arterial Blood Glucose Arterial Blood Ionized Calcium 07/09/20 07/09/20 07/09/20 11:56 17:49 23:39 WBC RBC Hgb Lymph % (Auto) Lymph # (Auto) Seg Neuts % (Manual) Lymphocytes % (Manual) Seg Neutrophils # Seg Neutrophils # Man Lymphocytes # (Manual) D-Dimer ABG pH POC ABG pO2 ABG pO2 ABG HCO3 ABG O2 Saturation ABG Hemoglobin ABG Glucose Oxyhemoglobin Chloride Carbon Dioxide BUN Glucose POC Glucose 156 H 119 H 145 H Calcium Ferritin Lactate Dehydrogenase C-Reactive Protein Total Protein Albumin Arterial Blood Glucose Arterial Blood Ionized Calcium 07/10/20 07/10/20 07/10/20 03:32 05:26 11:22 WBC RBC Hgb Lymph % (Auto) Lymph # (Auto) Seg Neuts % (Manual) Lymphocytes % (Manual) Seg Neutrophils # Seg Neutrophils # Man Lymphocytes # (Manual) D-Dimer ABG pH POC ABG pO2 ABG pO2 75.7 L ABG HCO3 27.5 H ABG O2 Saturation ABG Hemoglobin 9.3 L ABG Glucose Oxyhemoglobin 94.7 L Chloride Carbon Dioxide BUN Glucose POC Glucose 156 H 148 H Calcium Ferritin Lactate Dehydrogenase C-Reactive Protein Total Protein Albumin Arterial Blood Glucose Arterial Blood Ionized Calcium 07/10/20 07/10/20 07/10/20 12:10 12:10 18:20 WBC 14.1 H RBC 3.33 L Hgb 9.9 L Lymph % (Auto) Lymph # (Auto) Seg Neuts % (Manual) 89.0 H Lymphocytes % (Manual) 8.0 L Seg Neutrophils # Seg Neutrophils # Man 12.5 H Lymphocytes # (Manual) 1.1 L D-Dimer ABG pH POC ABG pO2 ABG pO2 ABG HCO3 ABG O2 Saturation ABG Hemoglobin ABG Glucose Oxyhemoglobin Chloride Carbon Dioxide BUN 21 H Glucose 154 H POC Glucose 181 H Calcium 8.0 L Ferritin Lactate Dehydrogenase C-Reactive Protein Total Protein 5.4 L Albumin 3.0 L Arterial Blood Glucose Arterial Blood Ionized Calcium 07/10/20 07/11/20 07/11/20 23:51 04:05 05:43 WBC RBC Hgb Lymph % (Auto) Lymph # (Auto) Seg Neuts % (Manual) Lymphocytes % (Manual) Seg Neutrophils # Seg Neutrophils # Man Lymphocytes # (Manual) D-Dimer ABG pH 7.348 L POC ABG pO2 ABG pO2 93.6 H ABG HCO3 28.5 H ABG O2 Saturation ABG Hemoglobin 10.1 L ABG Glucose Oxyhemoglobin Chloride Carbon Dioxide BUN Glucose POC Glucose 116 H 132 H Calcium Ferritin Lactate Dehydrogenase C-Reactive Protein Total Protein Albumin Arterial Blood Glucose Arterial Blood Ionized Calcium 07/11/20 07/11/20 07/11/20 09:11 09:11 09:11 WBC 15.8 H RBC 3.44 L Hgb Lymph % (Auto) Lymph # (Auto) Seg Neuts % (Manual) 92.0 H Lymphocytes % (Manual) 4.0 L Seg Neutrophils # Seg Neutrophils # Man 14.5 H Lymphocytes # (Manual) 0.6 L D-Dimer 360.61 H ABG pH POC ABG pO2 ABG pO2 ABG HCO3 ABG O2 Saturation ABG Hemoglobin ABG Glucose Oxyhemoglobin Chloride 107.1 H Carbon Dioxide BUN 22 H Glucose 149 H POC Glucose Calcium 7.8 L Ferritin Lactate Dehydrogenase 483 H C-Reactive Protein 2.30 H Total Protein 4.9 L Albumin 3.0 L Arterial Blood Glucose Arterial Blood Ionized Calcium 07/11/20 07/11/20 07/11/20 09:11 12:16 17:55 WBC RBC Hgb Lymph % (Auto) Lymph # (Auto) Seg Neuts % (Manual) Lymphocytes % (Manual) Seg Neutrophils # Seg Neutrophils # Man Lymphocytes # (Manual) D-Dimer ABG pH POC ABG pO2 ABG pO2 ABG HCO3 ABG O2 Saturation ABG Hemoglobin ABG Glucose Oxyhemoglobin Chloride Carbon Dioxide BUN Glucose POC Glucose 157 H 166 H Calcium Ferritin 371.2 H Lactate Dehydrogenase C-Reactive Protein Total Protein Albumin Arterial Blood Glucose Arterial Blood Ionized Calcium 07/12/20 07/12/20 07/12/20 00:32 04:00 04:00 WBC RBC 3.52 L Hgb Lymph % (Auto) Lymph # (Auto) Seg Neuts % (Manual) 90.0 H Lymphocytes % (Manual) 4.0 L Seg Neutrophils # Seg Neutrophils # Man 9.5 H Lymphocytes # (Manual) 0.4 L D-Dimer ABG pH POC ABG pO2 ABG pO2 ABG HCO3 ABG O2 Saturation ABG Hemoglobin ABG Glucose Oxyhemoglobin Chloride Carbon Dioxide 31 H BUN 21 H Glucose 175 H POC Glucose 178 H Calcium 8.0 L Ferritin Lactate Dehydrogenase C-Reactive Protein Total Protein 5.4 L Albumin 3.0 L Arterial Blood Glucose Arterial Blood Ionized Calcium 07/12/20 07/12/20 07/12/20 04:01 05:47 12:09 WBC RBC Hgb Lymph % (Auto) Lymph # (Auto) Seg Neuts % (Manual) Lymphocytes % (Manual) Seg Neutrophils # Seg Neutrophils # Man Lymphocytes # (Manual) D-Dimer ABG pH 7.456 H POC ABG pO2 ABG pO2 ABG HCO3 ABG O2 Saturation ABG Hemoglobin 10.6 L ABG Glucose 177 H Oxyhemoglobin Chloride Carbon Dioxide BUN Glucose POC Glucose 185 H 227 H Calcium Ferritin Lactate Dehydrogenase C-Reactive Protein Total Protein Albumin Arterial Blood Glucose 177 H Arterial Blood Ionized Calcium 4.5 L 07/12/20 07/12/20 07/13/20 17:34 23:57 05:06 WBC RBC Hgb Lymph % (Auto) Lymph # (Auto) Seg Neuts % (Manual) Lymphocytes % (Manual) Seg Neutrophils # Seg Neutrophils # Man Lymphocytes # (Manual) D-Dimer ABG pH POC ABG pO2 ABG pO2 ABG HCO3 ABG O2 Saturation ABG Hemoglobin ABG Glucose Oxyhemoglobin Chloride Carbon Dioxide BUN Glucose POC Glucose 202 H 163 H 166 H Calcium Ferritin Lactate Dehydrogenase C-Reactive Protein Total Protein Albumin Arterial Blood Glucose Arterial Blood Ionized Calcium 07/13/20 07/13/20 07/13/20 07:20 07:20 07:20 WBC 20.5 H RBC Hgb Lymph % (Auto) Lymph # (Auto) Seg Neuts % (Manual) 93.0 H Lymphocytes % (Manual) 3.0 L Seg Neutrophils # Seg Neutrophils # Man 19.1 H Lymphocytes # (Manual) 0.6 L D-Dimer 826.36 H ABG pH POC ABG pO2 ABG pO2 ABG HCO3 ABG O2 Saturation ABG Hemoglobin ABG Glucose Oxyhemoglobin Chloride Carbon Dioxide 31 H BUN 25 H Glucose 163 H POC Glucose Calcium 8.1 L Ferritin Lactate Dehydrogenase 512 H C-Reactive Protein 1.80 H Total Protein 5.8 L Albumin 3.2 L Arterial Blood Glucose Arterial Blood Ionized Calcium 07/13/20 07/13/20 07/13/20 07:20 11:37 17:20 WBC RBC Hgb Lymph % (Auto) Lymph # (Auto) Seg Neuts % (Manual) Lymphocytes % (Manual) Seg Neutrophils # Seg Neutrophils # Man Lymphocytes # (Manual) D-Dimer ABG pH POC ABG pO2 ABG pO2 ABG HCO3 ABG O2 Saturation ABG Hemoglobin ABG Glucose Oxyhemoglobin Chloride Carbon Dioxide BUN Glucose POC Glucose 232 H 210 H Calcium Ferritin 219.8 H Lactate Dehydrogenase C-Reactive Protein Total Protein Albumin Arterial Blood Glucose Arterial Blood Ionized Calcium 07/13/20 07/13/20 07/14/20 23:57 Unknown 05:22 WBC RBC Hgb Lymph % (Auto) Lymph # (Auto) Seg Neuts % (Manual) Lymphocytes % (Manual) Seg Neutrophils # Seg Neutrophils # Man Lymphocytes # (Manual) D-Dimer ABG pH 7.341 L POC ABG pO2 133.0 H ABG pO2 56.5 L ABG HCO3 29.7 H ABG O2 Saturation 89.3 L ABG Hemoglobin 11.0 L ABG Glucose 207 H Oxyhemoglobin 87.7 L Chloride Carbon Dioxide BUN Glucose POC Glucose 190 H Calcium Ferritin Lactate Dehydrogenase C-Reactive Protein Total Protein Albumin Arterial Blood Glucose 207 H Arterial Blood Ionized Calcium 4.5 L 07/14/20 07/14/20 05:54 11:16 WBC RBC Hgb Lymph % (Auto) Lymph # (Auto) Seg Neuts % (Manual) Lymphocytes % (Manual) Seg Neutrophils # Seg Neutrophils # Man Lymphocytes # (Manual) D-Dimer ABG pH POC ABG pO2 ABG pO2 ABG HCO3 ABG O2 Saturation ABG Hemoglobin ABG Glucose Oxyhemoglobin Chloride Carbon Dioxide BUN Glucose POC Glucose 206 H 196 H Calcium Ferritin Lactate Dehydrogenase C-Reactive Protein Total Protein Albumin Arterial Blood Glucose Arterial Blood Ionized Calcium Chest x-ray: other (none today) Allied health notes reviewed: nursing
[2020-07-14] MEDS: INSULIN GLARGINE 100 UNITS/ML SUB-Q SCH (17:52)
--- NOTE | 2020-07-14 17:53 | Progress Note ---
Assessment and Plan --Acute asthma exacerbation Solumedrol 60mg q 6 Oxygen supplementation as needed Continue montelukast Monitor oxygen saturations closely -- COVID-19 Tested positive for COVID-19 in [place] Solumedrol 60q6, Remdesivir for 5 days ordered for convalescent plasma transfusion Procalcitonin <0.05 ID on board follow ferritin, ldh, d-dimer levels -- Acute hypoxic respiratory failure Now intubated on 07/09/20 overnight From COVID-19 and asthma exacerbation Continue steroids Continue oxygen supplementation -- GERD (gastroesophageal reflux disease) cont Pantoprazole --SLE (systemic lupus erythematosus related syndrome) Continue home medications-hydroxychloroquine -- DVT prophylaxis Lovenox 30 mg twice daily -- Full code status The high probability of a clinically significant, sudden or life threatening deterioration of the [CVS, respiratory, REJECT OPENER [employer] FILLER] system(s) required my full and direct attention, intervention and personal management. The aggregate critical care time was [] minutes. This time is in addition to time spent performing reported procedures but includes the following: [x] Data Review and interpretation [x] Patient assessment and monitoring of vital signs [x] Documentation [x] Medication orders and management brief History: 50-year-old female with a past medical history of asthma, hypertension, and lupus complains of generalized body weakness, fever and shortness of breath. Patient states the symptoms started right after she was discharged from [facility] on 07/05. She has associated wheezing, fever, cough and she has been using her inhalers with no significant effect. She also has associated diarrhea. Of note, she was hospitalized here in [facility] on 06/28 for asthma exacerbation and had a negative Covid test during the admission. She was treated and discharged. She presented to [facility] for further evaluation after discharge from here and over there, she was found to have positive COVID-19 test and she was placed on steroids and subsequently discharged on Eliquis prophylaxis for DVT. She states that she did not receive remdesivir during the admission. She was discharged from [facility] on 07/05. She went home and felt worse. She said that she passed out about 2 times. Due to persistent symptoms, she called EMS who brought her to [facility] for further evaluation. Daily course: 07/07. Patient seen and examined at bedside this morning. Patient is wheezing and slightly short of breath. Change steroids to Solu-Medrol 60 every 6. Added formoterol and budesonide. ID evaluation pending. Started patient on remdesivir as she is short of breath. 07/07: Placed on BIPAP this AM. Will need pulm evaluation. Solumedrol 60mg q6. STAT blood gas ordered. She will be transferred to [facility]. 07/08: Patient took oxygen off and attempts to go to the bathroom and subsequently became hypoxemic with sats down into the low 80s. Patient became weak short of breath. After that time patient had persistent coughing and cannot maintain sats until nonrebreather was placed. Patient is transferred to the ICU unit and monitored for respiratory failure possibly requiring intubat ion. 07/09: ID recommended for convalescent plasma, ordered. Patient intubated overnight. Continue to monitor clinically, scheduled lab, follow inflammatory markers 07/10: Wait for convalescent plasma transfusion, wean off from ventilator as tolerated 07/11: Called patient's daughter and updated. Continue to wean off vent as tolerated, continue tube feeding, monitor vital sign CBC BMP daily. 07/12: remains intubated and sedated. follow inflammatory markers - wean off vent as tolerated 07/13: wean off vent as tolerated, cxr in the am. reviewed vitals 07/14: remains intubated, has not received convalescent plasma yet. Reviewed vitals, tolerating tube feeding. Wean off vent per critical care as tolerated. Subjective Date of service: 07/14/20 Principal diagnosis: Ac hypoxemic resp failure; PNA; COVID-19 infxn; SLE; Asthma exacerbation Interval history: Patient seen and examined Patient remains intubated on mechanical ventilation Discussed with RN at the bedside, on tube feeding Reviewed vitals, Objective - Exam Narrative Exam: GENERAL: well-developed obese -[place]ian female lying on bed intubated and sedated HEENT: Normocephalic. Atraumatic. No conjunctival congestion or icterus. Patient has moist mucous membranes. NECK: Supple. Trachea midline. ET tube in place, intubated with mechanical ventilation CHEST/LUNGS: Diffuse expiratory wheezes, coarse breath sound bilaterally HEART/CARDIOVASCULAR: Regular in rate and rhythm. S1 and S2 positive. ABDOMEN: Abdomen is soft, nontender. Patient has normal bowel sounds. SKIN: There is no rash. Warm and dry. NEURO: Sedated MUSCULOSKELETAL: No joint effusion or tenderness. EXTRIMITY: No edema, no cyanosis or clubbing. PSYCH: Unable to assess - Constitutional Vitals: Vital Signs - 12hr 07/14/20 07/14/20 07/14/20 06:00 06:30 07:00 Temperature Pulse Rate 85 73 68 Pulse Rate [ Bilateral Throughout] Pulse Rate [ From Monitor] Respiratory 16 17 20 Rate Respiratory Rate [Bilateral Throughout] Respiratory Rate [Chest] Blood Pressure 129/66 118/54 115/54 O2 Sat by Pulse 98 92 91 Oximetry 07/14/20 07/14/20 07/14/20 07:30 08:00 08:30 Temperature 98.0 F Pulse Rate 59 L 63 58 L Pulse Rate [ Bilateral Throughout] Pulse Rate [ 58 L From Monitor] Respiratory 20 20 20 Rate Respiratory Rate [Bilateral Throughout] Respiratory Rate [Chest] Blood Pressure 114/57 112/60 114/54 O2 Sat by Pulse 97 94 98 Oximetry 07/14/20 07/14/20 07/14/20 08:55 09:01 09:30 Temperature Pulse Rate 65 64 73 Pulse Rate [ Bilateral Throughout] Pulse Rate [ From Monitor] Respiratory 19 21 Rate Respiratory Rate [Bilateral Throughout] Respiratory Rate [Chest] Blood Pressure 114/54 134/77 127/66 O2 Sat by Pulse 94 96 91 Oximetry 07/14/20 07/14/20 07/14/20 09:46 10:00 10:30 Temperature Pulse Rate 74 88 Pulse Rate [ 73 Bilateral Throughout] Pulse Rate [ From Monitor] Respiratory 20 24 Rate Respiratory 20 Rate [Bilateral Throughout] Respiratory 20 Rate [Chest] Blood Pressure 140/74 118/60 O2 Sat by Pulse 94 90 Oximetry 07/14/20 07/14/20 07/14/20 11:00 11:30 12:00 Temperature 98.5 F Pulse Rate 76 63 57 L Pulse Rate [ Bilateral Throughout] Pulse Rate [ 56 L From Monitor] Respiratory 20 20 20 Rate Respiratory Rate [Bilateral Throughout] Respiratory Rate [Chest] Blood Pressure 117/65 110/55 113/62 O2 Sat by Pulse 88 97 98 Oximetry 07/14/20 07/14/20 07/14/20 12:13 12:30 13:00 Temperature Pulse Rate 56 L 56 L 56 L Pulse Rate [ Bilateral Throughout] Pulse Rate [ From Monitor] Respiratory 20 20 Rate Respiratory Rate [Bilateral Throughout] Respiratory Rate [Chest] Blood Pressure 113/62 114/63 119/63 O2 Sat by Pulse 98 98 98 Oximetry 07/14/20 07/14/20 07/14/20 13:13 13:30 14:00 Temperature Pulse Rate 55 L 55 L Pulse Rate [ 57 L Bilateral Throughout] Pulse Rate [ From Monitor] Respiratory 20 20 Rate Respiratory 20 Rate [Bilateral Throughout] Respiratory Rate [Chest] Blood Pressure 117/61 116/65 O2 Sat by Pulse 98 98 Oximetry 07/14/20 07/14/20 07/14/20 14:30 15:00 15:30 Temperature Pulse Rate 53 L 53 L 62 Pulse Rate [ Bilateral Throughout] Pulse Rate [ From Monitor] Respiratory 20 20 20 Rate Respiratory Rate [Bilateral Throughout] Respiratory Rate [Chest] Blood Pressure 119/70 118/70 128/77 O2 Sat by Pulse 98 97 99 Oximetry 07/14/20 07/14/20 07/14/20 16:00 16:19 16:30 Temperature 98.9 F Pulse Rate 59 L 60 61 Pulse Rate [ Bilateral Throughout] Pulse Rate [ 67 From Monitor] Respiratory 20 20 Rate Respiratory Rate [Bilateral Throughout] Respiratory Rate [Chest] Blood Pressure 120/63 120/63 122/68 O2 Sat by Pulse 97 98 98 Oximetry 07/14/20 07/14/20 07/14/20 16:43 16:45 17:00 Temperature Pulse Rate 63 82 Pulse Rate [ 62 Bilateral Throughout] Pulse Rate [ From Monitor] Respiratory 17 Rate Respiratory 20 Rate [Bilateral Throughout] Respiratory Rate [Chest] Blood Pressure 122/68 122/68 O2 Sat by Pulse 98 91 Oximetry - Labs CBC & Chem 7: 07/13/20 07:20 07/13/20 07:20 Labs: Abnormal lab results 07/13/20 07/14/20 07/14/20 Range/Units 23:57 05:22 05:54 POC ABG pO2 133.0 H (83-108) mmHg ABG Hemoglobin 11.0 L (12.0-17.5) ABG Glucose 207 H (65-95) mg/dL POC Glucose 190 H 206 H (70-105) mg/dL Arterial Blood Glucose 207 H (65-95) mg/dL Arterial Blood Ionized Calcium 4.5 L (4.6-5.3) mg/dL 07/14/20 07/14/20 Range/Units 11:16 17:50 POC ABG pO2 (83-108) mmHg ABG Hemoglobin (12.0-17.5) ABG Glucose (65-95) mg/dL POC Glucose 196 H 205 H (70-105) mg/dL Arterial Blood Glucose (65-95) mg/dL Arterial Blood Ionized Calcium (4.6-5.3) mg/dL
[2020-07-14] MEDS: MIDAZOLAM 100 MG in SODIUM CHLORIDE 0.9% 80 ML IV SCH (19:55)
[2020-07-14] MEDS: MONTELUKAST 10 MG TAB PO SCH (21:26)
[2020-07-15] MEDS: ALBUTEROL 2.5 MG/3 ML NEBU IH SCH ×5 (00:11→21:06)
[2020-07-15] MEDS: fentaNYL DRIP Premix 2,000 MCG/100 ML BAG IV SCH ×5 (01:45→22:03)
[2020-07-15] MEDS: methylPREDNISolone Sod Succinate 125 MG/2 ML INJ IV SCH ×3 (06:17→18:33)
[2020-07-15] MEDS: INSULIN REGULAR, HUMAN 100 UNIT/ML 3ML VIAL SUB-Q SCH ×5 (06:20→23:30)
[2020-07-15] MEDS: ARFORMOTEROL 15 MCG/2 ML NEBU IH SCH ×2 (08:56→21:06)
[2020-07-15] MEDS: BUDESONIDE 0.5 MG/2 ML NEBU IH SCH ×2 (08:56→21:06)
[2020-07-15] MEDS: ZINC SULFATE 220 MG CAP PO SCH ×2 (10:27→22:04)
[2020-07-15] MEDS: HYDROXYCHLOROQUINE 200 MG TAB PO SCH (10:27)
[2020-07-15] MEDS: ENOXAPARIN 30 MG/0.3 ML INJ SUB-Q SCH ×2 (10:27→22:05)
[2020-07-15] MEDS: ASPIRIN 81 MG TAB CHEW PO SCH (10:27)
[2020-07-15] MEDS: QUEtiapine 200 MG TAB PO SCH ×2 (10:28→22:04)
[2020-07-15] MEDS: CEFEPIME/NS 2 GM/100 ML 2 GM/100 ML BAG IV SCH ×2 (10:28→22:02)
[2020-07-15] MEDS: LANSOPRAZOLE 30 MG SOLUTAB FEEDTUBE SCH (10:28)
[2020-07-15] MEDS: ASCORBIC ACID 500 MG TAB PO SCH ×2 (10:28→22:04)
[2020-07-15] MEDS: VENLAFAXINE 37.5 MG TAB PO SCH (10:28)
--- NOTE | 2020-07-15 13:07 | Progress Note ---
Assessment and Plan Cultures: Blood cultures 07/07/2020 no growth today SARS COV2- IgG negative Sputum culture 07/08/2020 usual respiratory [place] Blood culture 07/11/2020 no growth today MRSA nasal culture: Negative Tracheal aspirate 07/12/2020: Usual respiratory [place] A/P: 50-year-old female with CHF, asthma, hypertension, lupus was admitted to the hospital with complaints of fever, shortness of breath. Of note, she was seen last week due to an asthma exacerbation when her SARS-CoV-2 PCR and IgG were both negative. She was treated with steroids. She reportedly then went to [facility] and tested positive for COVID-19 and was discharged from the hospital on 07/05/2020 readmitted here with: #Acute asthma exacerbation: on nebs and steroids. #Acute hypoxic respiratory failure: Remains intubated #Critical COVID diagnosis at [facility]: completed Remdesivir. Remains on steroids per pulm. #Lupus, immunocompromised host: On Plaquenil. Recs: Last day of Cefepime today, Day 5 of 5 On steroids, wean per pulmonary/ICU prophylactic anticoagulation based on d-dimer trend ferritin, LDH, d-dimer, CRP every 2-3 days for risk stratification and to assess disease progression Leucocytosis is likely due to steroids Marquez Aponte MD, FACP [facility] O: [phone] F: [phone] Subjective Date of service: 07/15/20 Principal diagnosis: Ac hypoxemic resp failure; PNA; COVID-19 infxn; SLE; Asthma exacerbation Interval history: Afebrile. Remains on the vent. Objective - Exam Narrative Exam: Physical Exam (reviewed in chart due to PPE conservation and minimize risk of transmission) Constitutional: limited due to PPE conservation strategy Head, Ears, Nose: limited due to PPE conservation strategy Eyes: limited due to PPE conservation strategy Neck: limited due to PPE conservation strategy Oral: limited due to PPE conservation strategy Cardiovascular: limited due to PPE conservation strategy Respiratory: limited due to PPE conservation strategy GI: limited due to PPE conservation strategy Musculoskeletal: limited due to PPE conservation strategy Skin: limited due to PPE conservation strategy Hem/Lymphatic: limited due to PPE conservation strategy Psych: limited due to PPE conservation strategy Neurological: limited due to PPE conservation strategy - Constitutional Vitals: Vital Signs Temp Pulse Resp BP Pulse Ox 98.5 F 60 16 98/54 99 11/16/20 12:00 07/15/20 13:00 07/15/20 13:00 07/15/20 13:00 07/15/20 13:00 Temperature -Last 24 Hours Temperature 98.5 F Temperature 99.4 F Temperature 98.9 F Temperature 98.4 F Temperature 98.7 F Temperature 98.9 F - Labs CBC & Chem 7: 07/13/20 07:20 07/13/20 07:20 Labs: Abnormal lab results 07/14/20 07/14/20 07/15/20 Range/Units 17:50 23:28 03:16 POC ABG pCO2 49.2 H (32.0-48.0) mmHg POC ABG pO2 120.3 H (83-108) mmHg ABG Hemoglobin 9.5 L (12.0-17.5) ABG Glucose 148 H (65-95) mg/dL POC Glucose 205 H 160 H (70-105) mg/dL Lactate Dehydrogenase (91-180) units/L Arterial Blood Glucose 148 H (65-95) mg/dL 07/15/20 07/15/20 07/15/20 Range/Units 06:12 09:00 12:32 POC ABG pCO2 (32.0-48.0) mmHg POC ABG pO2 (83-108) mmHg ABG Hemoglobin (12.0-17.5) ABG Glucose (65-95) mg/dL POC Glucose 178 H 173 H (70-105) mg/dL Lactate Dehydrogenase 531 H (91-180) units/L Arterial Blood Glucose (65-95) mg/dL
[2020-07-15] MEDS ORDERED: SODIUM CHLORIDE 0.9% 500 ML 500 ML IV SCH (15:00)
--- NOTE | 2020-07-15 15:08 | Progress Note ---
Assessment and Plan --Acute asthma exacerbation on iv steroid Oxygen supplementation as needed Continue montelukast Monitor oxygen saturations closely -- COVID-19 Tested positive for COVID-19 in [place] iv steroid, s/p Remdesivir for 5 days ordered for convalescent plasma transfusion Procalcitonin <0.05 ID on board follow ferritin, ldh, d-dimer levels -- Acute hypoxic respiratory failure Now intubated on 07/09/20 overnight From COVID-19 and asthma exacerbation Continue steroids Continue oxygen supplementation -- GERD (gastroesophageal reflux disease) cont Pantoprazole --SLE (systemic lupus erythematosus related syndrome) Continue home medications-hydroxychloroquine -- DVT prophylaxis Lovenox 30 mg twice daily -- Full code status The high probability of a clinically significant, sudden or life threatening deterioration of the [CVS, respiratory, FOOD CHECKERS AND CASHIERS SUPERVISOR] system(s) required my full and direct attention, intervention and personal management. The aggregate critical care time was [33] minutes. This time is in addition to time spent performing reported procedures but includes the following: [x] Data Review and interpretation [x] Patient assessment and monitoring of vital signs [x] Documentation [x] Medication orders and management brief History: 50-year-old female with a past medical history of asthma, hypertension, and lupus complains of generalized body weakness, fever and shortness of breath. P atient states the symptoms started right after she was discharged from [facility] on 07/05. She has associated wheezing, fever, cough and she has been using her inhalers with no significant effect. She also has associated diarrhea. Of note, she was hospitalized here in [facility] on 06/28 for asthma exacerbation and had a negative Covid test during the admission. She was treated and discharged. She presented to [facility] for further evaluation after discharge from here and over there, she was found to have positive COVID-19 test and she was placed on steroids and subsequently discharged on Eliquis prophylaxis for DVT. She states that she did not receive remdesivir during the admission. She was discharged from [facility] on 07/05. She went home and felt worse. She said that she passed out about 2 times. Due to persistent symptoms, she called EMS who brought her to [facility] for further evaluation. Daily course: 07/07. Patient seen and examined at bedside this morning. Patient is wheezing and slightly short of breath. Change steroids to Solu-Medrol 60 every 6. Added formoterol and budesonide. ID evaluation pending. Started patient on remdesivir as she is short of breath. 07/07: Placed on BIPAP this AM. Will need pulm evaluation. Solumedrol 60mg q6. STAT blood gas ordered. She will be transferred to [facility]. 07/08: Patient took oxygen off and attempts to go to the bathroom and subsequently became hypoxemic with sats down into the low 80s. Patient became weak short of breath. After that time patient had persistent coughing and cannot maintain sats until nonrebreather was placed. Patient is transferred to the ICU unit and monitored for respiratory failure possibly requiring intubation. 07/09: ID recommended for convalescent plasma, ordered. Patient intubated overnight. Continue to monitor clinically, scheduled lab, follow inflammatory markers 07/10: Wait for convalescent plasma transfusion, wean off from ventilator as tolerated 07/11: Called patient's daughter and updated. Continue to wean off vent as tolerated, continue tube feeding, monitor vital sign CBC BMP daily. 07/12: remains intubated and sedated. follow inflammatory markers - wean off vent as tolerated 07/13: wean off vent as tolerated, cxr in the am. reviewed vitals 07/14: remains intubated, has not received convalescent plasma yet. Reviewed vitals, tolerating tube feeding. Wean off vent per critical care as tolerated. 07/15: cont to provide supportive care, wean off vent as tolerated - difficult to wean off. Subjective Date of service: 07/15/20 Principal diagnosis: Ac hypoxemic resp failure; PNA; COVID-19 infxn; SLE; Asthma exacerbation Interval history: Patient seen and examined Patient remains intubated on mechanical ventilation Discussed with RN at the bedside, on tube feeding Reviewed vitals, Objective - Exam Narrative Exam: GENERAL: well-developed obese -[place]ian female lying on bed intubated and sedated HEENT: Normocephalic. Atraumatic. No conjunctival congestion or icterus. Patient has moist mucous membranes. NECK: Supple. Trachea midline. ET tube in place, intubated with mechanical ventilation CHEST/LUNGS: Diffuse expiratory wheezes, coarse breath sound bilaterally HEART/CARDIOVASCULAR: Regular in rate and rhythm. S1 and S2 positive. ABDOMEN: Abdomen is soft, nontender. Patient has normal bowel sounds. SKIN: There is no rash. Warm and dry. NEURO: Sedated MUSCULOSKELETAL: No joint effusion or tenderness. EXTRIMITY: No edema, no cyanosis or clubbing. PSYCH: Unable to assess - Constitutional Vitals: Vital Signs - 12hr 07/15/20 07/15/20 07/15/20 03:30 03:53 04:00 Temperature 98.9 F Pulse Rate 54 L 56 L Pulse Rate [ Bilateral Throughout] Pulse Rate [ 71 From Monitor] Respiratory 16 16 Rate Respiratory Rate [Bilateral Throughout] Respiratory Rate [Chest] Blood Pressure 109/51 109/53 O2 Sat by Pulse 98 97 Oximetry 07/15/20 07/15/20 07/15/20 04:11 04:30 05:00 Temperature Pulse Rate 56 L 80 77 Pulse Rate [ 59 L Bilateral Throughout] Pulse Rate [ From Monitor] Respiratory 20 18 Rate Respiratory 16 Rate [Bilateral Throughout] Respiratory Rate [Chest] Blood Pressure 109/53 124/59 124/59 O2 Sat by Pulse 100 97 93 Oximetry 07/15/20 07/15/20 07/15/20 05:30 06:00 06:30 Temperature Pulse Rate 68 100 H 76 Pulse Rate [ Bilateral Throughout] Pulse Rate [ From Monitor] Respiratory 17 20 12 Rate Respiratory Rate [Bilateral Throughout] Respiratory Rate [Chest] Blood Pressure 118/59 118/59 118/63 O2 Sat by Pulse 92 92 96 Oximetry 07/15/20 07/15/20 07/15/20 07:00 07:30 08:00 Temperature 99.4 F Pulse Rate 73 69 75 Pulse Rate [ Bilateral Throughout] Pulse Rate [ 80 From Monitor] Respiratory 18 15 14 Rate Respiratory Rate [Bilateral Throughout] Respiratory Rate [Chest] Blood Pressure 114/60 114/62 119/57 O2 Sat by Pulse 94 94 96 Oximetry 07/15/20 07/15/20 07/15/20 08:30 08:53 08:56 Temperature Pulse Rate 67 76 Pulse Rate [ 79 Bilateral Throughout] Pulse Rate [ From Monitor] Respiratory 16 Rate Respiratory 23 Rate [Bilateral Throughout] Respiratory Rate [Chest] Blood Pressure 113/61 113/61 O2 Sat by Pulse 98 95 Oximetry 07/15/20 07/15/20 07/15/20 09:00 09:30 10:00 Temperature Pulse Rate 70 73 76 Pulse Rate [ Bilateral Throughout] Pulse Rate [ From Monitor] Respiratory 24 19 13 Rate Respiratory Rate [Bilateral Throughout] Respiratory 20 Rate [Chest] Blood Pressure 122/68 122/66 122/67 O2 Sat by Pulse 99 95 94 Oximetry 07/15/20 07/15/20 07/15/20 10:30 11:00 11:30 Temperature Pulse Rate 98 H 71 74 Pulse Rate [ Bilateral Throughout] Pulse Rate [ From Monitor] Respiratory 24 16 17 Rate Respiratory Rate [Bilateral Throughout] Respiratory Rate [Chest] Blood Pressure 122/67 99/53 106/58 O2 Sat by Pulse 91 93 91 Oximetry 07/15/20 07/15/20 07/15/20 12:00 12:08 12:30 Temperature 98.5 F Pulse Rate 72 65 68 Pulse Rate [ Bilateral Throughout] Pulse Rate [ 68 From Monitor] Respiratory 15 16 Rate Respiratory Rate [Bilateral Throughout] Respiratory Rate [Chest] Blood Pressure 100/55 100/55 99/56 O2 Sat by Pulse 95 94 92 Oximetry 07/15/20 07/15/20 07/15/20 13:00 13:49 13:51 Temperature Pulse Rate 60 62 Pulse Rate [ 61 Bilateral Throughout] Pulse Rate [ From Monitor] Respiratory 16 Rate Respiratory 16 Rate [Bilateral Throughout] Respiratory Rate [Chest] Blood Pressure 98/54 112/53 O2 Sat by Pulse 99 99 Oximetry - Labs CBC & Chem 7: 07/16/20 09:00 07/16/20 09:00 Labs: Abnormal lab results 07/14/20 07/14/20 07/15/20 Range/Units 17:50 23:28 03:16 POC ABG pCO2 49.2 H (32.0-48.0) mmHg POC ABG pO2 120.3 H (83-108) mmHg ABG Hemoglobin 9.5 L (12.0-17.5) ABG Glucose 148 H (65-95) mg/dL POC Glucose 205 H 160 H (70-105) mg/dL Lactate Dehydrogenase (91-180) units/L Arterial Blood Glucose 148 H (65-95) mg/dL 07/15/20 07/15/20 07/15/20 Range/Units 06:12 09:00 12:32 POC ABG pCO2 (32.0-48.0) mmHg POC ABG pO2 (83-108) mmHg ABG Hemoglobin (12.0-17.5) ABG Glucose (65-95) mg/dL POC Glucose 178 H 173 H (70-105) mg/dL Lactate Dehydrogenase 531 H (91-180) units/L Arterial Blood Glucose (65-95) mg/dL
[2020-07-15] MEDS ORDERED: SODIUM CHLORIDE 0.9% 500 ML 500 ML ONE (15:14)
--- NOTE | 2020-07-15 15:35 | Progress Note ---
Assessment and Plan Acute hypoxemic respiratory failure, now on MVS Bilateral pneumonia, left greater than right lungs. COVID-19 infection. History of congestive heart failure. History of lupus erythematosus. Leukocytosis. Tobacco use disorder. Acute asthma exacerbation. History of hypertension. Obesity - increased peep to 12 - reduced FiO2 to 50% - no new issues otherwise, continue care as below; - continue Lantus 5 units SQ q24h - continue low dose SSI - continue Seroquel 200 mg p.o. bid - continue to wean supplemental oxygen for target O2 sat's > 92% acutely - continue airborne and contact isolation - follow repeat COVID-19 testing - continue Zinc & Vit C supplementaion - complete Remdesivir - empiric AB's coverage per ID rec's otherwise - continue systemic steroids for Asthma / severe COVID infection - continue Daily SAT and SBT assessment as tolerated - VAP bundle addressed - continue lung protective strategies - continue bronchodilators with pulmonary hygiene per RT - wean per pulmonary driven protocols otherwise - accuchecks with glycemic control per SSI (While critically ill target blood gl ucose of 140-180 mg/dL; avoid hypoglycemia) - sedation prn for target RASS -1 to -2 - avoid nephrotoxins, renally dose all medications - continue to avoid benzodiazepine's, reduce the possibility of delirium - prn analgesia per CPOT score - Maintenance of sleep-wake cycle, avoid delirium - continue enteral nutritional support at goal rate as tolerated - G.I. & VTE prophylaxis - PT/OT/ROM exercises - continue mobility protocols for pressure ulcer prophylaxis - Monitor hemodynamics closely - continue other care per attending / other consultants - discharge planning ongoing concurrently .... Re-evaluate in am & prn CONDITION: CRITICAL PROGNOSIS: GUARDED CODE STATUS: FULL CODE The high probability of a clinically significant, sudden or life-threatening deterioration of the [respiratory, cardiovascular & neurologic] system(s) required my full and direct attention, intervention and personal management. The aggregate critical care time was [33] minutes without overlap. Time includes spent on; [x] Data Review and interpretation [x] Patient assessment and monitoring of vital signs [x] Documentation [x] Medication orders and management Subjective Date of service: 07/15/20 Principal diagnosis: Ac hypoxemic resp failure; PNA; COVID-19 infxn; SLE; Asthma exacerbation Interval history: Patient is seen today for: Acute hypoxemic respiratory failure; Bilateral pneu monia; COVID-19 infection; H/O CHF; SLE; Acute asthma exacerbation. HTN; Obesity Seen and examined at bedside; 24hour events reviewed; nursing and respiratory care staff consulted; no adverse overnight events reported to me; resting peacefully in bed; alert; remains on MVS; oxygenation labile and FiO2 up to 60%; peep is at 10 cm H2O; she denies chest pains/palpitations/N/V/F/C Objective Vital Signs - 12hr 07/15/20 07/15/20 07/15/20 03:53 04:00 04:11 Temperature 98.9 F Pulse Rate 56 L 56 L Pulse Rate [ 59 L Bilateral Throughout] Pulse Rate [ 71 From Monitor] Respiratory 16 Rate Respiratory 16 Rate [Bilateral Throughout] Respiratory Rate [Chest] Blood Pressure 109/53 109/53 O2 Sat by Pulse 97 100 Oximetry 07/15/20 07/15/20 07/15/20 04:30 05:00 05:30 Temperature Pulse Rate 80 77 68 Pulse Rate [ Bilateral Throughout] Pulse Rate [ From Monitor] Respiratory 20 18 17 Rate Respiratory Rate [Bilateral Throughout] Respiratory Rate [Chest] Blood Pressure 124/59 124/59 118/59 O2 Sat by Pulse 97 93 92 Oximetry 07/15/20 07/15/20 07/15/20 06:00 06:30 07:00 Temperature Pulse Rate 100 H 76 73 Pulse Rate [ Bilateral Throughout] Pulse Rate [ From Monitor] Respiratory 20 12 18 Rate Respiratory Rate [Bilateral Throughout] Respiratory Rate [Chest] Blood Pressure 118/59 118/63 114/60 O2 Sat by Pulse 92 96 94 Oximetry 07/15/20 07/15/20 07/15/20 07:30 08:00 08:30 Temperature 99.4 F Pulse Rate 69 75 67 Pulse Rate [ Bilateral Throughout] Pulse Rate [ 80 From Monitor] Respiratory 15 14 16 Rate Respiratory Rate [Bilateral Throughout] Respiratory Rate [Chest] Blood Pressure 114/62 119/57 113/61 O2 Sat by Pulse 94 96 98 Oximetry 07/15/20 07/15/20 07/15/20 08:53 08:56 09:00 Temperature Pulse Rate 76 70 Pulse Rate [ 79 Bilateral Throughout] Pulse Rate [ From Monitor] Respiratory 24 Rate Respiratory 23 Rate [Bilateral Throughout] Respiratory Rate [Chest] Blood Pressure 113/61 122/68 O2 Sat by Pulse 95 99 Oximetry 11/07/15/20 07/15/20 09:30 10:00 10:30 Temperature Pulse Rate 73 76 98 H Pulse Rate [ Bilateral Throughout] Pulse Rate [ From Monitor] Respiratory 19 13 24 Rate Respiratory Rate [Bilateral Throughout] Respiratory 20 Rate [Chest] Blood Pressure 122/66 122/67 122/67 O2 Sat by Pulse 95 94 91 Oximetry 07/15/20 07/15/20 07/15/20 11:00 11:30 12:00 Temperature 98.5 F Pulse Rate 71 74 72 Pulse Rate [ Bilateral Throughout] Pulse Rate [ 68 From Monitor] Respiratory 16 17 15 Rate Respiratory Rate [Bilateral Throughout] Respiratory Rate [Chest] Blood Pressure 99/53 106/58 100/55 O2 Sat by Pulse 93 91 95 Oximetry 07/15/20 07/15/20 07/15/20 12:08 12:30 13:00 Temperature Pulse Rate 65 68 60 Pulse Rate [ Bilateral Throughout] Pulse Rate [ From Monitor] Respiratory 16 16 Rate Respiratory Rate [Bilateral Throughout] Respiratory Rate [Chest] Blood Pressure 100/55 99/56 98/54 O2 Sat by Pulse 94 92 99 Oximetry 07/15/20 07/15/20 13:49 13:51 Temperature Pulse Rate 62 Pulse Rate [ 61 Bilateral Throughout] Pulse Rate [ From Monitor] Respiratory Rate Respiratory 16 Rate [Bilateral Throughout] Respiratory Rate [Chest] Blood Pressure 112/53 O2 Sat by Pulse 99 Oximetry Constitutional: no acute distress, other (middle aged obese female with mildly increased respiratory effort at rest on MVS) Eyes: non-icteric ENT: oropharynx moist, other (ETT 24 cm YANET) Neck: supple, no lymphadenopathy, no JVD Effort: mildly labored Ascultation: Right: diminished breath sounds (base), Bilateral: rhonchi Percussion: Bilateral: not dull Cardiovascular: regular rate and rhythm Gastrointestinal: normoactive bowel sounds, soft, non-tender, non-distended Integumentary: normal Extremities: no cyanosis, no edema, pulses normal, no ischemia or petechiae Neurologic: normal mental status, non-focal exam, pupils equal and round, motor strength normal and Psychiatric: other (sedated) CBC and BMP: 07/13/20 07:20 07/13/20 07:20 ABG, PT/INR, D-dimer: ABG ABG pH 7.380 (7.320-7.450) 07/15/20 03:16 POC ABG pCO2 49.2 mmHg (32.0-48.0) H 07/15/20 03:16 ABG pCO2 56.2 mm Hg 07/13/20 Unknown POC ABG pO2 120.3 mmHg (83-108) H 07/15/20 03:16 ABG pO2 56.5 mm Hg (80.0-90.0) L 07/13/20 Unknown POC ABG HCO3 28.5 07/15/20 03:16 ABG O2 Saturation 89.3 % (95.0-99.0) L 07/13/20 Unknown PT/INR, D-dimer D-Dimer 826.36 ng/mlDDU (0-234) H 07/13/20 07:20 Abnormal lab findings: Abnormal Labs 07/06/20 07/06/20 07/07/20 05:24 17:16 04:50 WBC 13.5 H 12.7 H RBC Hgb Lymph % (Auto) Lymph # (Auto) Seg Neuts % (Manual) 86.0 H 87.0 H Lymphocytes % (Manual) 6.0 L 9.0 L Seg Neutrophils # Seg Neutrophils # Man 11.6 H 11.0 H Lymphocytes # (Manual) 0.8 L 1.1 L D-Dimer ABG pH POC ABG pCO2 POC ABG pO2 ABG pO2 ABG HCO3 ABG O2 Saturation ABG Hemoglobin ABG Glucose Oxyhemoglobin Chloride Carbon Dioxide BUN Glucose POC Glucose Calcium Ferritin Lactate Dehydrogenase 242 H C-Reactive Protein 7.30 H Total Protein Albumin Arterial Blood Glucose Arterial Blood Ionized Calcium 07/07/20 07/07/20 07/07/20 04:50 14:22 14:22 WBC RBC Hgb Lymph % (Auto) Lymph # (Auto) Seg Neuts % (Manual) Lymphocytes % (Manual) Seg Neutrophils # Seg Neutrophils # Man Lymphocytes # (Manual) D-Dimer ABG pH POC ABG pCO2 POC ABG pO2 ABG pO2 ABG HCO3 ABG O2 Saturation ABG Hemoglobin ABG Glucose Oxyhemoglobin Chloride Carbon Dioxide BUN 18 H Glucose 138 H POC Glucose Calcium Ferritin 228.2 H Lactate Dehydrogenase 277 H C-Reactive Protein Total Protein 5.9 L Albumin 3.4 L Arterial Blood Glucose Arterial Blood Ionized Calcium 07/08/20 07/08/20 07/08/20 11:18 12:57 16:13 WBC RBC Hgb Lymph % (Auto) Lymph # (Auto) Seg Neuts % (Manual) Lymphocytes % (Manual) Seg Neutrophils # Seg Neutrophils # Man Lymphocytes # (Manual) D-Dimer ABG pH POC ABG pCO2 POC ABG pO2 ABG pO2 39.3 L* ABG HCO3 ABG O2 Saturation 76.8 L ABG Hemoglobin ABG Glucose Oxyhemoglobin 75.3 L Chloride Carbon Dioxide 20 L D BUN Glucose 135 H POC Glucose 106 H Calcium 8.0 L Ferritin Lactate Dehydrogenase C-Reactive Protein Total Protein Albumin Arterial Blood Glucose Arterial Blood Ionized Calcium 07/08/20 07/08/20 07/09/20 17:04 18:45 04:00 WBC 15.6 H RBC Hgb Lymph % (Auto) 4.7 L Lymph # (Auto) 0.7 L Seg Neuts % (Manual) Lymphocytes % (Manual) Seg Neutrophils # 14.2 H Seg Neutrophils # Man Lymphocytes # (Manual) D-Dimer ABG pH POC ABG pCO2 POC ABG pO2 ABG pO2 181.8 H ABG HCO3 ABG O2 Saturation 99.1 H ABG Hemoglobin 11.4 L ABG Glucose Oxyhemoglobin Chloride Carbon Dioxide BUN Glucose POC Glucose 117 H Calcium Ferritin Lactate Dehydrogenase C-Reactive Protein Total Protein Albumin Arterial Blood Glucose Arterial Blood Ionized Calcium 07/09/20 07/09/20 07/09/20 04:00 04:00 04:49 WBC RBC Hgb Lymph % (Auto) Lymph # (Auto) Seg Neuts % (Manual) Lymphocytes % (Manual) Seg Neutrophils # Seg Neutrophils # Man Lymphocytes # (Manual) D-Dimer ABG pH POC ABG pCO2 POC ABG pO2 ABG pO2 ABG HCO3 26.2 H ABG O2 Saturation ABG Hemoglobin 11.2 L ABG Glucose Oxyhemoglobin 94.9 L Chloride Carbon Dioxide BUN Glucose 158 H POC Glucose Calcium 8.2 L Ferritin 320.0 H Lactate Dehydrogenase 391 H C-Reactive Protein 9.50 H Total Protein 5.9 L Albumin 3.2 L Arterial Blood Glucose Arterial Blood Ionized Calcium 07/09/20 07/09/20 07/09/20 11:56 17:49 23:39 WBC RBC Hgb Lymph % (Auto) Lymph # (Auto) Seg Neuts % (Manual) Lymphocytes % (Manual) Seg Neutrophils # Seg Neutrophils # Man Lymphocytes # (Manual) D-Dimer ABG pH POC ABG pCO2 POC ABG pO2 ABG pO2 ABG HCO3 ABG O2 Saturation ABG Hemoglobin ABG Glucose Oxyhemoglobin Chloride Carbon Dioxide BUN Glucose POC Glucose 156 H 119 H 145 H Calcium Ferritin Lactate Dehydrogenase C-Reactive Protein Total Protein Albumin Arterial Blood Glucose Arterial Blood Ionized Calcium 07/10/20 07/10/20 07/10/20 03:32 05:26 11:22 WBC RBC Hgb Lymph % (Auto) Lymph # (Auto) Seg Neuts % (Manual) Lymphocytes % (Manual) Seg Neutrophils # Seg Neutrophils # Man Lymphocytes # (Manual) D-Dimer ABG pH POC ABG pCO2 POC ABG pO2 ABG pO2 75.7 L ABG HCO3 27.5 H ABG O2 Saturation ABG Hemoglobin 9.3 L ABG Glucose Oxyhemoglobin 94.7 L Chloride Carbon Dioxide BUN Glucose POC Glucose 156 H 148 H Calcium Ferritin Lactate Dehydrogenase C-Reactive Protein Total Protein Albumin Arterial Blood Glucose Arterial Blood Ionized Calcium 07/10/20 07/10/20 07/10/20 12:10 12:10 18:20 WBC 14.1 H RBC 3.33 L Hgb 9.9 L Lymph % (Auto) Lymph # (Auto) Seg Neuts % (Manual) 89.0 H Lymphocytes % (Manual) 8.0 L Seg Neutrophils # Seg Neutrophils # Man 12.5 H Lymphocytes # (Manual) 1.1 L D-Dimer ABG pH POC ABG pCO2 POC ABG pO2 ABG pO2 ABG HCO3 ABG O2 Saturation ABG Hemoglobin ABG Glucose Oxyhemoglobin Chloride Carbon Dioxide BUN 21 H Glucose 154 H POC Glucose 181 H Calcium 8.0 L Ferritin Lactate Dehydrogenase C-Reactive Protein Total Protein 5.4 L Albumin 3.0 L Arterial Blood Glucose Arterial Blood Ionized Calcium 07/10/20 07/11/20 07/11/20 23:51 04:05 05:43 WBC RBC Hgb Lymph % (Auto) Lymph # (Auto) Seg Neuts % (Manual) Lymphocytes % (Manual) Seg Neutrophils # Seg Neutrophils # Man Lymphocytes # (Manual) D-Dimer ABG pH 7.348 L POC ABG pCO2 POC ABG pO2 ABG pO2 93.6 H ABG HCO3 28.5 H ABG O2 Saturation ABG Hemoglobin 10.1 L ABG Glucose Oxyhemoglobin Chloride Carbon Dioxide BUN Glucose POC Glucose 116 H 132 H Calcium Ferritin Lactate Dehydrogenase C-Reactive Protein Total Protein Albumin Arterial Blood Glucose Arterial Blood Ionized Calcium 07/11/20 07/11/20 07/11/20 09:11 09:11 09:11 WBC 15.8 H RBC 3.44 L Hgb Lymph % (Auto) Lymph # (Auto) Seg Neuts % (Manual) 92.0 H Lymphocytes % (Manual) 4.0 L Seg Neutrophils # Seg Neutrophils # Man 14.5 H Lymphocytes # (Manual) 0.6 L D-Dimer 360.61 H ABG pH POC ABG pCO2 POC ABG pO2 ABG pO2 ABG HCO3 ABG O2 Saturation ABG Hemoglobin ABG Glucose Oxyhemoglobin Chloride 107.1 H Carbon Dioxide BUN 22 H Glucose 149 H POC Glucose Calcium 7.8 L Ferritin Lactate Dehydrogenase 483 H C-Reactive Protein 2.30 H Total Protein 4.9 L Albumin 3.0 L Arterial Blood Glucose Arterial Blood Ionized Calcium 07/11/20 07/11/20 07/11/20 09:11 12:16 17:55 WBC RBC Hgb Lymph % (Auto) Lymph # (Auto) Seg Neuts % (Manual) Lymphocytes % (Manual) Seg Neutrophils # Seg Neutrophils # Man Lymphocytes # (Manual) D-Dimer ABG pH POC ABG pCO2 POC ABG pO2 ABG pO2 ABG HCO3 ABG O2 Saturation ABG Hemoglobin ABG Glucose Oxyhemoglobin Chloride Carbon Dioxide BUN Glucose POC Glucose 157 H 166 H Calcium Ferritin 371.2 H Lactate Dehydrogenase C-Reactive Protein Total Protein Albumin Arterial Blood Glucose Arterial Blood Ionized Calcium 07/12/20 07/12/20 07/12/20 00:32 04:00 04:00 WBC RBC 3.52 L Hgb Lymph % (Auto) Lymph # (Auto) Seg Neuts % (Manual) 90.0 H Lymphocytes % (Manual) 4.0 L Seg Neutrophils # Seg Neutrophils # Man 9.5 H Lymphocytes # (Manual) 0.4 L D-Dimer ABG pH POC ABG pCO2 POC ABG pO2 ABG pO2 ABG HCO3 ABG O2 Saturation ABG Hemoglobin ABG Glucose Oxyhemoglobin Chloride Carbon Dioxide 31 H BUN 21 H Glucose 175 H POC Glucose 178 H Calcium 8.0 L Ferritin Lactate Dehydrogenase C-Reactive Protein Total Protein 5.4 L Albumin 3.0 L Arterial Blood Glucose Arterial Blood Ionized Calcium 07/12/20 07/12/20 07/12/20 04:01 05:47 12:09 WBC RBC Hgb Lymph % (Auto) Lymph # (Auto) Seg Neuts % (Manual) Lymphocytes % (Manual) Seg Neutrophils # Seg Neutrophils # Man Lymphocytes # (Manual) D-Dimer ABG pH 7.456 H POC ABG pCO2 POC ABG pO2 ABG pO2 ABG HCO3 ABG O2 Saturation ABG Hemoglobin 10.6 L ABG Glucose 177 H Oxyhemoglobin Chloride Carbon Dioxide BUN Glucose POC Glucose 185 H 227 H Calcium Ferritin Lactate Dehydrogenase C-Reactive Protein Total Protein Albumin Arterial Blood Glucose 177 H Arterial Blood Ionized Calcium 4.5 L 07/12/20 07/12/20 07/13/20 17:34 23:57 05:06 WBC RBC Hgb Lymph % (Auto) Lymph # (Auto) Seg Neuts % (Manual) Lymphocytes % (Manual) Seg Neutrophils # Seg Neutrophils # Man Lymphocytes # (Manual) D-Dimer ABG pH POC ABG pCO2 POC ABG pO2 ABG pO2 ABG HCO3 ABG O2 Saturation ABG Hemoglobin ABG Glucose Oxyhemoglobin Chloride Carbon Dioxide BUN Glucose POC Glucose 202 H 163 H 166 H Calcium Ferritin Lactate Dehydrogenase C-Reactive Protein Total Protein Albumin Arterial Blood Glucose Arterial Blood Ionized Calcium 07/13/20 07/13/20 07/13/20 07:20 07:20 07:20 WBC 20.5 H RBC Hgb Lymph % (Auto) Lymph # (Auto) Seg Neuts % (Manual) 93.0 H Lymphocytes % (Manual) 3.0 L Seg Neutrophils # Seg Neutrophils # Man 19.1 H Lymphocytes # (Manual) 0.6 L D-Dimer 826.36 H ABG pH POC ABG pCO2 POC ABG pO2 ABG pO2 ABG HCO3 ABG O2 Saturation ABG Hemoglobin ABG Glucose Oxyhemoglobin Chloride Carbon Dioxide 31 H BUN 25 H Glucose 163 H POC Glucose Calcium 8.1 L Ferritin Lactate Dehydrogenase 512 H C-Reactive Protein 1.80 H Total Protein 5.8 L Albumin 3.2 L Arterial Blood Glucose Arterial Blood Ionized Calcium 07/13/20 07/13/20 07/13/20 07:20 11:37 17:20 WBC RBC Hgb Lymph % (Auto) Lymph # (Auto) Seg Neuts % (Manual) Lymphocytes % (Manual) Seg Neutrophils # Seg Neutrophils # Man Lymphocytes # (Manual) D-Dimer ABG pH POC ABG pCO2 POC ABG pO2 ABG pO2 ABG HCO3 ABG O2 Saturation ABG Hemoglobin ABG Glucose Oxyhemoglobin Chloride Carbon Dioxide BUN Glucose POC Glucose 232 H 210 H Calcium Ferritin 219.8 H Lactate Dehydrogenase C-Reactive Protein Total Protein Albumin Arterial Blood Glucose Arterial Blood Ionized Calcium 07/13/20 07/13/20 07/14/20 23:57 Unknown 05:22 WBC RBC Hgb Lymph % (Auto) Lymph # (Auto) Seg Neuts % (Manual) Lymphocytes % (Manual) Seg Neutrophils # Seg Neutrophils # Man Lymphocytes # (Manual) D-Dimer ABG pH 7.341 L POC ABG pCO2 POC ABG pO2 133.0 H ABG pO2 56.5 L ABG HCO3 29.7 H ABG O2 Saturation 89.3 L ABG Hemoglobin 11.0 L ABG Glucose 207 H Oxyhemoglobin 87.7 L Chloride Carbon Dioxide BUN Glucose POC Glucose 190 H Calcium Ferritin Lactate Dehydrogenase C-Reactive Protein Total Protein Albumin Arterial Blood Glucose 207 H Arterial Blood Ionized Calcium 4.5 L 07/14/20 07/14/20 07/14/20 05:54 11:16 17:50 WBC RBC Hgb Lymph % (Auto) Lymph # (Auto) Seg Neuts % (Manual) Lymphocytes % (Manual) Seg Neutrophils # Seg Neutrophils # Man Lymphocytes # (Manual) D-Dimer ABG pH POC ABG pCO2 POC ABG pO2 ABG pO2 ABG HCO3 ABG O2 Saturation ABG Hemoglobin ABG Glucose Oxyhemoglobin Chloride Carbon Dioxide BUN Glucose POC Glucose 206 H 196 H 205 H Calcium Ferritin Lactate Dehydrogenase C-Reactive Protein Total Protein Albumin Arterial Blood Glucose Arterial Blood Ionized Calcium 07/14/20 07/15/20 07/15/20 23:28 03:16 06:12 WBC RBC Hgb Lymph % (Auto) Lymph # (Auto) Seg Neuts % (Manual) Lymphocytes % (Manual) Seg Neutrophils # Seg Neutrophils # Man Lymphocytes # (Manual) D-Dimer ABG pH POC ABG pCO2 49.2 H POC ABG pO2 120.3 H ABG pO2 ABG HCO3 ABG O2 Saturation ABG Hemoglobin 9.5 L ABG Glucose 148 H Oxyhemoglobin Chloride Carbon Dioxide BUN Glucose POC Glucose 160 H 178 H Calcium Ferritin Lactate Dehydrogenase C-Reactive Protein Total Protein Albumin Arterial Blood Glucose 148 H Arterial Blood Ionized Calcium 07/15/20 07/15/20 09:00 12:32 WBC RBC Hgb Lymph % (Auto) Lymph # (Auto) Seg Neuts % (Manual) Lymphocytes % (Manual) Seg Neutrophils # Seg Neutrophils # Man Lymphocytes # (Manual) D-Dimer ABG pH POC ABG pCO2 POC ABG pO2 ABG pO2 ABG HCO3 ABG O2 Saturation ABG Hemoglobin ABG Glucose Oxyhemoglobin Chloride Carbon Dioxide BUN Glucose POC Glucose 173 H Calcium Ferritin Lactate Dehydrogenase 531 H C-Reactive Protein Total Protein Albumin Arterial Blood Glucose Arterial Blood Ionized Calcium Chest x-ray: pending Allied health notes reviewed: nursing
[2020-07-15] MEDS: INSULIN GLARGINE 100 UNITS/ML SUB-Q SCH (17:33)
[2020-07-15] MEDS: MONTELUKAST 10 MG TAB PO SCH (22:05)
[2020-07-15] MEDS: MIDAZOLAM 100 MG in SODIUM CHLORIDE 0.9% 80 ML IV SCH (22:07)
[2020-07-16] MEDS: methylPREDNISolone Sod Succinate 125 MG/2 ML INJ IV SCH ×4 (00:30→18:18)
[2020-07-16] MEDS: fentaNYL DRIP Premix 2,000 MCG/100 ML BAG IV SCH ×4 (03:44→18:19)
[2020-07-16 04:21] LABS: ABG Base Excess 9.4 mmol/L (-2.0-3.0); ABG HCO3 35.5 mmol/L (20.0-26.0); ABG Methemoglobin 0.5 % (0.0-1.5); ABG Oxygen Saturation 95.4 % (95.0-99.0); ABG PH 7.412 pH Units (7.350-7.450); ABG PO2 72.7 mm Hg (80.0-90.0)
[2020-07-16] MEDS: INSULIN REGULAR, HUMAN 100 UNIT/ML 3ML VIAL SUB-Q SCH ×3 (05:56→17:19)
[2020-07-16] MEDS: ALBUTEROL 2.5 MG/3 ML NEBU IH SCH ×3 (08:35→22:18)
[2020-07-16] MEDS: BUDESONIDE 0.5 MG/2 ML NEBU IH SCH ×2 (08:35→22:17)
[2020-07-16] MEDS: ARFORMOTEROL 15 MCG/2 ML NEBU IH SCH ×2 (08:35→22:18)
[2020-07-16] MEDS: MIDAZOLAM 2 MG/2 ML INJ IV PRN (09:05)
[2020-07-16] MEDS: ASCORBIC ACID 500 MG TAB PO SCH ×2 (09:06→22:05)
[2020-07-16] MEDS: LANSOPRAZOLE 30 MG SOLUTAB FEEDTUBE SCH (09:07)
[2020-07-16] MEDS: ENOXAPARIN 30 MG/0.3 ML INJ SUB-Q SCH ×2 (09:07→22:05)
[2020-07-16] MEDS: HYDROXYCHLOROQUINE 200 MG TAB PO SCH (09:07)
[2020-07-16] MEDS: VENLAFAXINE 37.5 MG TAB PO SCH (09:07)
[2020-07-16] MEDS: ASPIRIN 81 MG TAB CHEW PO SCH (09:07)
[2020-07-16] MEDS: ZINC SULFATE 220 MG CAP PO SCH ×2 (09:07→22:05)
[2020-07-16] MEDS: QUEtiapine 200 MG TAB PO SCH ×2 (09:08→22:05)
[2020-07-16 09:35] LABS: Hemoglobin 10.7 gm/dl (10.1-14.3); Mean Corpuscular HGB Conc 33 % (30-34); Mean Corpuscular Volume 92 fl (79-97); Platelet Count 229 K/mm3 (140-440); Red Blood Count 3.59 M/mm3 (3.65-5.03); Red Cell Distribution Width 14.6 % (13.2-15.2)
[2020-07-16 09:47] LABS: Blood Urea Nitrogen 25 mg/dL (7-17); Calcium 8.3 mg/dL (8.4-10.2); Hemolysis Index 4
[2020-07-16 10:07] LABS: BUN/Creatinine Ratio 63
[2020-07-16 12:51] LABS: Band Neutrophils # (Manual) 0.2 K/mm3; Basophils % (Manual) 0 % (0.0-1.8); Eosinophils % (Manual) 0 % (0.0-4.3); Monocytes % (Manual) 0 % (0.0-7.3); Total Cells Counted 100
[2020-07-16 12:52] LABS: Ovalocytes Rare
[2020-07-16 12:53] LABS: Spherocytes Few; Tear Drop Cells Rare
[2020-07-16 12:54] LABS: Platelet Estimate Consistent w Auto
--- NOTE | 2020-07-16 13:30 | Progress Note ---
Assessment and Plan Cultures: Blood cultures 07/07/2020 no growth today SARS COV2- IgG negative Sputum culture 07/08/2020 usual respiratory [place] Blood culture 07/11/2020 no growth today MRSA nasal culture: Negative Tracheal aspirate 07/12/2020: Usual respiratory [place] A/P: 50-year-old female with CHF, asthma, hypertension, lupus was admitted to the hospital with complaints of fever, shortness of breath. Of note, she was seen last week due to an asthma exacerbation when her SARS-CoV-2 PCR and IgG were both negative. She was treated with steroids. She reportedly then went to [place] and tested positive for COVID-19 and was discharged from the hospital on 07/05/2020 readmitted here with: #Acute asthma exacerbation: on nebs and steroids. #Acute hypoxic respiratory failure: Remains intubated #Critical COVID diagnosis at [place]: completed Remdesivir. Remains on steroids per pulm. #Lupus, immunocompromised host: On Plaquenil. Recs: completed abx On steroids, wean per pulmonary/ICU prophylactic anticoagulation based on d-dimer trend ferritin, LDH, d-dimer, CRP every 2-3 days for risk stratification and to assess disease progression Leucocytosis is likely due to steroids Marquez Aponte MD, FACP [facility] O: [phone] F: [phone] Subjective Date of service: 07/16/20 Principal diagnosis: Ac hypoxemic resp failure; PNA; COVID-19 infxn; SLE; Asthma exacerbation Interval history: Afebrile. Remains on the vent. Objective - Exam Narrative Exam: Physical Exam (reviewed in chart due to PPE conservation and minimize risk of transmission) Constitutional: limited due to PPE conservation strategy Head, Ears, Nose: limited due to PPE conservation strategy Eyes: limited due to PPE conservation strategy Neck: limited due to PPE conservation strategy Oral: limited due to PPE conservation strategy Cardiovascular: limited due to PPE conservation strategy Respiratory: limited due to PPE conservation strategy GI: limited due to PPE conservation strategy Musculoskeletal: limited due to PPE conservation strategy Skin: limited due to PPE conservation strategy Hem/Lymphatic: limited due to PPE conservation strategy Psych: limited due to PPE conservation strategy Neurological: limited due to PPE conservation strategy - Constitutional Vitals: Vital Signs Temp Pulse Resp BP Pulse Ox 99.4 F 66 18 99/62 96 07/16/20 03:38 07/16/20 13:22 07/16/20 13:22 07/16/20 12:58 07/16/20 12:58 Temperature -Last 24 Hours Temperature 99.4 F Temperature 98.9 F Temperature 98.8 F Temperature 98.5 F - Labs CBC & Chem 7: 07/16/20 09:00 07/16/20 09:00 Labs: Abnormal lab results 07/15/20 07/15/20 07/15/20 Range/Units 14:30 18:24 23:35 WBC (4.5-11.0) K/mm3 RBC (3.65-5.03) M/mm3 Seg Neuts % (Manual) (40.0-70.0) % Lymphocytes % (Manual) (13.4-35.0) % Seg Neutrophils # Man (1.8-7.7) K/mm3 Lymphocytes # (Manual) (1.2-5.4) K/mm3 ABG pO2 (80.0-90.0) mm Hg ABG HCO3 (20.0-26.0) mmol/L ABG Base Excess (-2.0-3.0) mmol/L ABG Hemoglobin (12.0-16.0) gm/dl Oxyhemoglobin (95.0-99.0) % Carbon Dioxide (22-30) mmol/L BUN (7-17) mg/dL Creatinine (0.6-1.2) mg/dL Glucose (65-100) mg/dL POC Glucose 173 H 181 H (70-105) mg/dL Calcium (8.4-10.2) mg/dL SARS-CoV-2 IgG Ab Reactive A (NonReactive) 07/16/20 07/16/20 07/16/20 Range/Units 04:03 05:35 09:00 WBC 16.5 H (4.5-11.0) K/mm3 RBC 3.59 L (3.65-5.03) M/mm3 Seg Neuts % (Manual) 96.0 H (40.0-70.0) % Lymphocytes % (Manual) 3.0 L (13.4-35.0) % Seg Neutrophils # Man 15.8 H (1.8-7.7) K/mm3 Lymphocytes # (Manual) 0.5 L (1.2-5.4) K/mm3 ABG pO2 72.7 L (80.0-90.0) mm Hg ABG HCO3 35.5 H (20.0-26.0) mmol/L ABG Base Excess 9.4 H (-2.0-3.0) mmol/L ABG Hemoglobin 10.6 L (12.0-16.0) gm/dl Oxyhemoglobin 93.6 L (95.0-99.0) % Carbon Dioxide (22-30) mmol/L BUN (7-17) mg/dL Creatinine (0.6-1.2) mg/dL Glucose (65-100) mg/dL POC Glucose 129 H (70-105) mg/dL Calcium (8.4-10.2) mg/dL SARS-CoV-2 IgG Ab (NonReactive) 07/16/20 07/16/20 Range/Units 09:00 12:32 WBC (4.5-11.0) K/mm3 RBC (3.65-5.03) M/mm3 Seg Neuts % (Manual) (40.0-70.0) % Lymphocytes % (Manual) (13.4-35.0) % Seg Neutrophils # Man (1.8-7.7) K/mm3 Lymphocytes # (Manual) (1.2-5.4) K/mm3 ABG pO2 (80.0-90.0) mm Hg ABG HCO3 (20.0-26.0) mmol/L ABG Base Excess (-2.0-3.0) mmol/L ABG Hemoglobin (12.0-16.0) gm/dl Oxyhemoglobin (95.0-99.0) % Carbon Dioxide 39 H D (22-30) mmol/L BUN 25 H (7-17) mg/dL Creatinine 0.4 L (0.6-1.2) mg/dL Glucose 167 H (65-100) mg/dL POC Glucose 187 H (70-105) mg/dL Calcium 8.3 L (8.4-10.2) mg/dL SARS-CoV-2 IgG Ab (NonReactive)
--- NOTE | 2020-07-16 14:57 | Progress Note ---
Assessment and Plan Acute hypoxemic respiratory failure, now on MVS Bilateral pneumonia, left greater than right lungs. COVID-19 infection. History of congestive heart failure. History of lupus erythematosus. Leukocytosis. Tobacco use disorder. Acute asthma exacerbation. History of hypertension. Obesity - begin bowel regimen for constipation (Mag citrate 300 mls X 1 and schedule docusate / miralax) - keep peep at 12 - continue to wean supplemental oxygen for target O2 sat's > 92% - no new issues otherwise, continue care as below; - continue Lantus 5 units SQ q24h - continue low dose SSI - continue Seroquel 200 mg p.o. bid - continue airborne and contact isolation - follow repeat COVID-19 testing - continue Zinc & Vit C supplementaion - complete Remdesivir - empiric AB's coverage per ID rec's otherwise - continue systemic steroids for Asthma / severe COVID infection - continue Daily SAT and SBT assessment as tolerated - VAP bundle addressed - continue lung protective strategies - continue bronchodilators with pulmonary hygiene per RT - wean per pulmonary driven protocols otherwise - accuchecks with glycemic control per SSI (While critically ill target blood glucose of 140-180 mg/dL; avoid hypoglycemia) - sedation prn for target RASS -1 to -2 - avoid nephrotoxins, renally dose all medications - continue to avoid benzodiazepine's, reduce the possibility of delirium - prn analgesia per CPOT score - Maintenance of sleep-wake cycle, avoid delirium - continue enteral nutritional support at goal rate as tolerated - G.I. & VTE prophylaxis - PT/OT/ROM exercises - continue mobility protocols for pressure ulcer prophylaxis - Monitor hemodynamics closely - continue other care per attending / other consultants - discharge planning ongoing concurrently .... Re-evaluate in am & prn CONDITION: CRITICAL PROGNOSIS: GUARDED CODE STATUS: FULL CODE The high probability of a clinically significant, sudden or life-threatening deterioration of the [respiratory, cardiovascular & neurologic] system(s) r equired my full and direct attention, intervention and personal management. The aggregate critical care time was [32] minutes without overlap. Time includes spent on; [x] Data Review and interpretation [x] Patient assessment and monitoring of vital signs [x] Documentation [x] Medication orders and management Subjective Date of service: 07/16/20 Principal diagnosis: Ac hypoxemic resp failure; PNA; COVID-19 infxn; SLE; Asthma exacerbation Interval history: Patient is seen today for: Acute hypoxemic respiratory failure; Bilateral pneumonia; COVID-19 infection; H/O CHF; SLE; Acute asthma exacerbation. HTN; Obesity Seen and examined at bedside; 24hour events reviewed; nursing and respiratory care staff consulted; no adverse overnight events reported to me; resting peacefully in bed; alert; remains on MVS; oxygenation stilkl labile and FiO2 up to 70%; she denies chest pains; No N/V/F/C Objective Vital Signs - 12hr 07/16/20 07/16/20 07/16/20 03:00 03:30 03:38 Temperature 99.4 F Pulse Rate 88 63 Pulse Rate [ Bilateral Throughout] Pulse Rate [ From Monitor] Respiratory 18 21 Rate Respiratory Rate [Bilateral Throughout] Respiratory Rate [Chest] Blood Pressure 102/64 113/64 O2 Sat by Pulse 98 96 Oximetry 07/16/20 07/16/20 07/16/20 04:00 04:30 04:43 Temperature Pulse Rate 61 61 54 L Pulse Rate [ Bilateral Throughout] Pulse Rate [ 90 From Monitor] Respiratory 17 16 Rate Respiratory Rate [Bilateral Throughout] Respiratory Rate [Chest] Blood Pressure 110/63 96/48 96/48 O2 Sat by Pulse 95 95 99 Oximetry 07/16/20 07/16/20 07/16/20 05:00 05:30 06:00 Temperature Pulse Rate 61 61 67 Pulse Rate [ Bilateral Throughout] Pulse Rate [ From Monitor] Respiratory 16 15 17 Rate Respiratory Rate [Bilateral Throughout] Respiratory Rate [Chest] Blood Pressure 101/54 99/46 118/67 O2 Sat by Pulse 94 93 96 Oximetry 07/16/20 07/16/20 07/16/20 06:30 07:00 07:30 Temperature Pulse Rate 59 L 54 L 68 Pulse Rate [ Bilateral Throughout] Pulse Rate [ From Monitor] Respiratory 17 16 21 Rate Respiratory Rate [Bilateral Throughout] Respiratory Rate [Chest] Blood Pressure 100/54 104/51 118/65 O2 Sat by Pulse 95 97 91 Oximetry 07/16/20 07/16/20 07/16/20 08:00 08:30 08:35 Temperature Pulse Rate 72 80 Pulse Rate [ 79 Bilateral Throughout] Pulse Rate [ 75 From Monitor] Respiratory 12 17 Rate Respiratory 20 Rate [Bilateral Throughout] Respiratory Rate [Chest] Blood Pressure 124/66 130/72 O2 Sat by Pulse 94 94 Oximetry 07/16/20 07/16/20 07/16/20 08:40 09:00 09:30 Temperature Pulse Rate 85 109 H 77 Pulse Rate [ Bilateral Throughout] Pulse Rate [ From Monitor] Respiratory 30 H 16 Rate Respiratory Rate [Bilateral Throughout] Respiratory Rate [Chest] Blood Pressure 130/72 130/72 112/64 O2 Sat by Pulse 94 88 96 Oximetry 07/16/20 07/16/20 07/16/20 10:00 10:30 11:00 Temperature Pulse Rate 73 69 67 Pulse Rate [ Bilateral Throughout] Pulse Rate [ From Monitor] Respiratory 16 15 15 Rate Respiratory Rate [Bilateral Throughout] Respiratory 20 Rate [Chest] Blood Pressure 106/58 103/60 96/64 O2 Sat by Pulse 95 95 96 Oximetry 07/16/20 07/16/20 07/16/20 11:30 12:00 12:30 Temperature Pulse Rate 64 69 64 Pulse Rate [ Bilateral Throughout] Pulse Rate [ 66 From Monitor] Respiratory 16 15 14 Rate Respiratory Rate [Bilateral Throughout] Respiratory Rate [Chest] Blood Pressure 95/56 96/57 97/59 O2 Sat by Pulse 98 95 95 Oximetry 07/16/20 07/16/20 07/16/20 12:58 13:00 13:22 Temperature Pulse Rate 64 66 Pulse Rate [ 66 Bilateral Throughout] Pulse Rate [ From Monitor] Respiratory 16 Rate Respiratory 18 Rate [Bilateral Throughout] Respiratory Rate [Chest] Blood Pressure 99/62 99/62 O2 Sat by Pulse 96 94 Oximetry 07/16/20 07/16/20 13:30 14:00 Temperature Pulse Rate 69 64 Pulse Rate [ Bilateral Throughout] Pulse Rate [ From Monitor] Respiratory 13 16 Rate Respiratory Rate [Bilateral Throughout] Respiratory Rate [Chest] Blood Pressure 97/53 103/60 O2 Sat by Pulse 94 95 Oximetry Constitutional: no acute distress, other (middle aged obese female with mildly increased respiratory effort at rest on MVS) Eyes: non-icteric ENT: oropharynx moist, other (ETT 24 cm YANET) Neck: supple, no lymphadenopathy, no JVD Effort: mildly labored Ascultation: Bilateral: rhonchi Percussion: Bilateral: not dull Cardiovascular: regular rate and rhythm Gastrointestinal: normoactive bowel sounds, soft, non-tender, non-distended Integumentary: normal Extremities: no cyanosis, no edema, pulses normal, no ischemia or petechiae Neurologic: normal mental status, non-focal exam, pupils equal and round, motor strength normal and Psychiatric: anxious CBC and BMP: 07/16/20 09:00 07/16/20 09:00 ABG, PT/INR, D-dimer: ABG ABG pH 7.412 pH Units (7.350-7.450) 07/16/20 04:03 POC ABG pCO2 49.2 mmHg (32.0-48.0) H 07/15/20 03:16 ABG pCO2 57.0 mm Hg 07/16/20 04:03 POC ABG pO2 120.3 mmHg (83-108) H 07/15/20 03:16 ABG pO2 72.7 mm Hg (80.0-90.0) L 07/16/20 04:03 POC ABG HCO3 28.5 07/15/20 03:16 ABG O2 Saturation 95.4 % (95.0-99.0) 07/16/20 04:03 PT/INR, D-dimer D-Dimer 826.36 ng/mlDDU (0-234) H 07/13/20 07:20 Abnormal lab findings: Abnormal Labs 07/06/20 07/06/20 07/07/20 05:24 17:16 04:50 WBC 13.5 H 12.7 H RBC Hgb Lymph % (Auto) Lymph # (Auto) Seg Neuts % (Manual) 86.0 H 87.0 H Lymphocytes % (Manual) 6.0 L 9.0 L Seg Neutrophils # Seg Neutrophils # Man 11.6 H 11.0 H Lymphocytes # (Manual) 0.8 L 1.1 L D-Dimer ABG pH POC ABG pCO2 POC ABG pO2 ABG pO2 ABG HCO3 ABG O2 Saturation ABG Base Excess ABG Hemoglobin ABG Glucose Oxyhemoglobin Chloride Carbon Dioxide BUN Creatinine Glucose POC Glucose Calcium Ferritin Lactate Dehydrogenase 242 H C-Reactive Protein 7.30 H Total Protein Albumin Arterial Blood Glucose Arterial Blood Ionized Calcium SARS-CoV-2 IgG Ab 07/07/20 07/07/20 07/07/20 04:50 14:22 14:22 WBC RBC Hgb Lymph % (Auto) Lymph # (Auto) Seg Neuts % (Manual) Lymphocytes % (Manual) Seg Neutrophils # Seg Neutrophils # Man Lymphocytes # (Manual) D-Dimer ABG pH POC ABG pCO2 POC ABG pO2 ABG pO2 ABG HCO3 ABG O2 Saturation ABG Base Excess ABG Hemoglobin ABG Glucose Oxyhemoglobin Chloride Carbon Dioxide BUN 18 H Creatinine Glucose 138 H POC Glucose Calcium Ferritin 228.2 H Lactate Dehydrogenase 277 H C-Reactive Protein Total Protein 5.9 L Albumin 3.4 L Arterial Blood Glucose Arterial Blood Ionized Calcium SARS-CoV-2 IgG Ab 07/08/20 07/08/20 07/08/20 11:18 12:57 16:13 WBC RBC Hgb Lymph % (Auto) Lymph # (Auto) Seg Neuts % (Manual) Lymphocytes % (Manual) Seg Neutrophils # Seg Neutrophils # Man Lymphocytes # (Manual) D-Dimer ABG pH POC ABG pCO2 POC ABG pO2 ABG pO2 39.3 L* ABG HCO3 ABG O2 Saturation 76.8 L ABG Base Excess ABG Hemoglobin ABG Glucose Oxyhemoglobin 75.3 L Chloride Carbon Dioxide 20 L D BUN Creatinine Glucose 135 H POC Glucose 106 H Calcium 8.0 L Ferritin Lactate Dehydrogenase C-Reactive Protein Total Protein Albumin Arterial Blood Glucose Arterial Blood Ionized Calcium SARS-CoV-2 IgG Ab 07/08/20 07/08/20 07/09/20 17:04 18:45 04:00 WBC 15.6 H RBC Hgb Lymph % (Auto) 4.7 L Lymph # (Auto) 0.7 L Seg Neuts % (Manual) Lymphocytes % (Manual) Seg Neutrophils # 14.2 H Seg Neutrophils # Man Lymphocytes # (Manual) D-Dimer ABG pH POC ABG pCO2 POC ABG pO2 ABG pO2 181.8 H ABG HCO3 ABG O2 Saturation 99.1 H ABG Base Excess ABG Hemoglobin 11.4 L ABG Glucose Oxyhemoglobin Chloride Carbon Dioxide BUN Creatinine Glucose POC Glucose 117 H Calcium Ferritin Lactate Dehydrogenase C-Reactive Protein Total Protein Albumin Arterial Blood Glucose Arterial Blood Ionized Calcium SARS-CoV-2 IgG Ab 07/09/20 07/09/20 07/09/20 04:00 04:00 04:49 WBC RBC Hgb Lymph % (Auto) Lymph # (Auto) Seg Neuts % (Manual) Lymphocytes % (Manual) Seg Neutrophils # Seg Neutrophils # Man Lymphocytes # (Manual) D-Dimer ABG pH POC ABG pCO2 POC ABG pO2 ABG pO2 ABG HCO3 26.2 H ABG O2 Saturation ABG Base Excess ABG Hemoglobin 11.2 L ABG Glucose Oxyhemoglobin 94.9 L Chloride Carbon Dioxide BUN Creatinine Glucose 158 H POC Glucose Calcium 8.2 L Ferritin 320.0 H Lactate Dehydrogenase 391 H C-Reactive Protein 9.50 H Total Protein 5.9 L Albumin 3.2 L Arterial Blood Glucose Arterial Blood Ionized Calcium SARS-CoV-2 IgG Ab 07/09/20 07/09/20 07/09/20 11:56 17:49 23:39 WBC RBC Hgb Lymph % (Auto) Lymph # (Auto) Seg Neuts % (Manual) Lymphocytes % (Manual) Seg Neutrophils # Seg Neutrophils # Man Lymphocytes # (Manual) D-Dimer ABG pH POC ABG pCO2 POC ABG pO2 ABG pO2 ABG HCO3 ABG O2 Saturation ABG Base Excess ABG Hemoglobin ABG Glucose Oxyhemoglobin Chloride Carbon Dioxide BUN Creatinine Glucose POC Glucose 156 H 119 H 145 H Calcium Ferritin Lactate Dehydrogenase C-Reactive Protein Total Protein Albumin Arterial Blood Glucose Arterial Blood Ionized Calcium SARS-CoV-2 IgG Ab 07/10/20 07/10/20 07/10/20 03:32 05:26 11:22 WBC RBC Hgb Lymph % (Auto) Lymph # (Auto) Seg Neuts % (Manual) Lymphocytes % (Manual) Seg Neutrophils # Seg Neutrophils # Man Lymphocytes # (Manual) D-Dimer ABG pH POC ABG pCO2 POC ABG pO2 ABG pO2 75.7 L ABG HCO3 27.5 H ABG O2 Saturation ABG Base Excess ABG Hemoglobin 9.3 L ABG Glucose Oxyhemoglobin 94.7 L Chloride Carbon Dioxide BUN Creatinine Glucose POC Glucose 156 H 148 H Calcium Ferritin Lactate Dehydrogenase C-Reactive Protein Total Protein Albumin Arterial Blood Glucose Arterial Blood Ionized Calcium SARS-CoV-2 IgG Ab 07/10/20 07/10/20 07/10/20 12:10 12:10 18:20 WBC 14.1 H RBC 3.33 L Hgb 9.9 L Lymph % (Auto) Lymph # (Auto) Seg Neuts % (Manual) 89.0 H Lymphocytes % (Manual) 8.0 L Seg Neutrophils # Seg Neutrophils # Man 12.5 H Lymphocytes # (Manual) 1.1 L D-Dimer ABG pH POC ABG pCO2 POC ABG pO2 ABG pO2 ABG HCO3 ABG O2 Saturation ABG Base Excess ABG Hemoglobin ABG Glucose Oxyhemoglobin Chloride Carbon Dioxide BUN 21 H Creatinine Glucose 154 H POC Glucose 181 H Calcium 8.0 L Ferritin Lactate Dehydrogenase C-Reactive Protein Total Protein 5.4 L Albumin 3.0 L Arterial Blood Glucose Arterial Blood Ionized Calcium SARS-CoV-2 IgG Ab 07/10/20 07/11/20 07/11/20 23:51 04:05 05:43 WBC RBC Hgb Lymph % (Auto) Lymph # (Auto) Seg Neuts % (Manual) Lymphocytes % (Manual) Seg Neutrophils # Seg Neutrophils # Man Lymphocytes # (Manual) D-Dimer ABG pH 7.348 L POC ABG pCO2 POC ABG pO2 ABG pO2 93.6 H ABG HCO3 28.5 H ABG O2 Saturation ABG Base Excess ABG Hemoglobin 10.1 L ABG Glucose Oxyhemoglobin Chloride Carbon Dioxide BUN Creatinine Glucose POC Glucose 116 H 132 H Calcium Ferritin Lactate Dehydrogenase C-Reactive Protein Total Protein Albumin Arterial Blood Glucose Arterial Blood Ionized Calcium SARS-CoV-2 IgG Ab 07/11/20 07/11/20 07/11/20 09:11 09:11 09:11 WBC 15.8 H RBC 3.44 L Hgb Lymph % (Auto) Lymph # (Auto) Seg Neuts % (Manual) 92.0 H Lymphocytes % (Manual) 4.0 L Seg Neutrophils # Seg Neutrophils # Man 14.5 H Lymphocytes # (Manual) 0.6 L D-Dimer 360.61 H ABG pH POC ABG pCO2 POC ABG pO2 ABG pO2 ABG HCO3 ABG O2 Saturation ABG Base Excess ABG Hemoglobin ABG Glucose Oxyhemoglobin Chloride 107.1 H Carbon Dioxide BUN 22 H Creatinine Glucose 149 H POC Glucose Calcium 7.8 L Ferritin Lactate Dehydrogenase 483 H C-Reactive Protein 2.30 H Total Protein 4.9 L Albumin 3.0 L Arterial Blood Glucose Arterial Blood Ionized Calcium SARS-CoV-2 IgG Ab 07/11/20 07/11/20 07/11/20 09:11 12:16 17:55 WBC RBC Hgb Lymph % (Auto) Lymph # (Auto) Seg Neuts % (Manual) Lymphocytes % (Manual) Seg Neutrophils # Seg Neutrophils # Man Lymphocytes # (Manual) D-Dimer ABG pH POC ABG pCO2 POC ABG pO2 ABG pO2 ABG HCO3 ABG O2 Saturation ABG Base Excess ABG Hemoglobin ABG Glucose Oxyhemoglobin Chloride Carbon Dioxide BUN Creatinine Glucose POC Glucose 157 H 166 H Calcium Ferritin 371.2 H Lactate Dehydrogenase C-Reactive Protein Total Protein Albumin Arterial Blood Glucose Arterial Blood Ionized Calcium SARS-CoV-2 IgG Ab 07/12/20 07/12/20 07/12/20 00:32 04:00 04:00 WBC RBC 3.52 L Hgb Lymph % (Auto) Lymph # (Auto) Seg Neuts % (Manual) 90.0 H Lymphocytes % (Manual) 4.0 L Seg Neutrophils # Seg Neutrophils # Man 9.5 H Lymphocytes # (Manual) 0.4 L D-Dimer ABG pH POC ABG pCO2 POC ABG pO2 ABG pO2 ABG HCO3 ABG O2 Saturation ABG Base Excess ABG Hemoglobin ABG Glucose Oxyhemoglobin Chloride Carbon Dioxide 31 H BUN 21 H Creatinine Glucose 175 H POC Glucose 178 H Calcium 8.0 L Ferritin Lactate Dehydrogenase C-Reactive Protein Total Protein 5.4 L Albumin 3.0 L Arterial Blood Glucose Arterial Blood Ionized Calcium SARS-CoV-2 IgG Ab 07/12/20 07/12/20 07/12/20 04:01 05:47 12:09 WBC RBC Hgb Lymph % (Auto) Lymph # (Auto) Seg Neuts % (Manual) Lymphocytes % (Manual) Seg Neutrophils # Seg Neutrophils # Man Lymphocytes # (Manual) D-Dimer ABG pH 7.456 H POC ABG pCO2 POC ABG pO2 ABG pO2 ABG HCO3 ABG O2 Saturation ABG Base Excess ABG Hemoglobin 10.6 L ABG Glucose 177 H Oxyhemoglobin Chloride Carbon Dioxide BUN Creatinine Glucose POC Glucose 185 H 227 H Calcium Ferritin Lactate Dehydrogenase C-Reactive Protein Total Protein Albumin Arterial Blood Glucose 177 H Arterial Blood Ionized Calcium 4.5 L SARS-CoV-2 IgG Ab 07/12/20 07/12/20 07/13/20 17:34 23:57 05:06 WBC RBC Hgb Lymph % (Auto) Lymph # (Auto) Seg Neuts % (Manual) Lymphocytes % (Manual) Seg Neutrophils # Seg Neutrophils # Man Lymphocytes # (Manual) D-Dimer ABG pH POC ABG pCO2 POC ABG pO2 ABG pO2 ABG HCO3 ABG O2 Saturation ABG Base Excess ABG Hemoglobin ABG Glucose Oxyhemoglobin Chloride Carbon Dioxide BUN Creatinine Glucose POC Glucose 202 H 163 H 166 H Calcium Ferritin Lactate Dehydrogenase C-Reactive Protein Total Protein Albumin Arterial Blood Glucose Arterial Blood Ionized Calcium SARS-CoV-2 IgG Ab 07/13/20 07/13/20 07/13/20 07:20 07:20 07:20 WBC 20.5 H RBC Hgb Lymph % (Auto) Lymph # (Auto) Seg Neuts % (Manual) 93.0 H Lymphocytes % (Manual) 3.0 L Seg Neutrophils # Seg Neutrophils # Man 19.1 H Lymphocytes # (Manual) 0.6 L D-Dimer 826.36 H ABG pH POC ABG pCO2 POC ABG pO2 ABG pO2 ABG HCO3 ABG O2 Saturation ABG Base Excess ABG Hemoglobin ABG Glucose Oxyhemoglobin Chloride Carbon Dioxide 31 H BUN 25 H Creatinine Glucose 163 H POC Glucose Calcium 8.1 L Ferritin Lactate Dehydrogenase 512 H C-Reactive Protein 1.80 H Total Protein 5.8 L Albumin 3.2 L Arterial Blood Glucose Arterial Blood Ionized Calcium SARS-CoV-2 IgG Ab 07/13/20 07/13/20 07/13/20 07:20 11:37 17:20 WBC RBC Hgb Lymph % (Auto) Lymph # (Auto) Seg Neuts % (Manual) Lymphocytes % (Manual) Seg Neutrophils # Seg Neutrophils # Man Lymphocytes # (Manual) D-Dimer ABG pH POC ABG pCO2 POC ABG pO2 ABG pO2 ABG HCO3 ABG O2 Saturation ABG Base Excess ABG Hemoglobin ABG Glucose Oxyhemoglobin Chloride Carbon Dioxide BUN Creatinine Glucose POC Glucose 232 H 210 H Calcium Ferritin 219.8 H Lactate Dehydrogenase C-Reactive Protein Total Protein Albumin Arterial Blood Glucose Arterial Blood Ionized Calcium SARS-CoV-2 IgG Ab 07/13/20 07/13/20 07/14/20 23:57 Unknown 05:22 WBC RBC Hgb Lymph % (Auto) Lymph # (Auto) Seg Neuts % (Manual) Lymphocytes % (Manual) Seg Neutrophils # Seg Neutrophils # Man Lymphocytes # (Manual) D-Dimer ABG pH 7.341 L POC ABG pCO2 POC ABG pO2 133.0 H ABG pO2 56.5 L ABG HCO3 29.7 H ABG O2 Saturation 89.3 L ABG Base Excess ABG Hemoglobin 11.0 L ABG Glucose 207 H Oxyhemoglobin 87.7 L Chloride Carbon Dioxide BUN Creatinine Glucose POC Glucose 190 H Calcium Ferritin Lactate Dehydrogenase C-Reactive Protein Total Protein Albumin Arterial Blood Glucose 207 H Arterial Blood Ionized Calcium 4.5 L SARS-CoV-2 IgG Ab 07/14/20 07/14/20 07/14/20 05:54 11:16 17:50 WBC RBC Hgb Lymph % (Auto) Lymph # (Auto) Seg Neuts % (Manual) Lymphocytes % (Manual) Seg Neutrophils # Seg Neutrophils # Man Lymphocytes # (Manual) D-Dimer ABG pH POC ABG pCO2 POC ABG pO2 ABG pO2 ABG HCO3 ABG O2 Saturation ABG Base Excess ABG Hemoglobin ABG Glucose Oxyhemoglobin Chloride Carbon Dioxide BUN Creatinine Glucose POC Glucose 206 H 196 H 205 H Calcium Ferritin Lactate Dehydrogenase C-Reactive Protein Total Protein Albumin Arterial Blood Glucose Arterial Blood Ionized Calcium SARS-CoV-2 IgG Ab 07/14/20 07/15/20 07/15/20 23:28 03:16 06:12 WBC RBC Hgb Lymph % (Auto) Lymph # (Auto) Seg Neuts % (Manual) Lymphocytes % (Manual) Seg Neutrophils # Seg Neutrophils # Man Lymphocytes # (Manual) D-Dimer ABG pH POC ABG pCO2 49.2 H POC ABG pO2 120.3 H ABG pO2 ABG HCO3 ABG O2 Saturation ABG Base Excess ABG Hemoglobin 9.5 L ABG Glucose 148 H Oxyhemoglobin Chloride Carbon Dioxide BUN Creatinine Glucose POC Glucose 160 H 178 H Calcium Ferritin Lactate Dehydrogenase C-Reactive Protein Total Protein Albumin Arterial Blood Glucose 148 H Arterial Blood Ionized Calcium SARS-CoV-2 IgG Ab 07/15/20 07/15/20 07/15/20 09:00 12:32 14:30 WBC RBC Hgb Lymph % (Auto) Lymph # (Auto) Seg Neuts % (Manual) Lymphocytes % (Manual) Seg Neutrophils # Seg Neutrophils # Man Lymphocytes # (Manual) D-Dimer ABG pH POC ABG pCO2 POC ABG pO2 ABG pO2 ABG HCO3 ABG O2 Saturation ABG Base Excess ABG Hemoglobin ABG Glucose Oxyhemoglobin Chloride Carbon Dioxide BUN Creatinine Glucose POC Glucose 173 H Calcium Ferritin Lactate Dehydrogenase 531 H C-Reactive Protein Total Protein Albumin Arterial Blood Glucose Arterial Blood Ionized Calcium SARS-CoV-2 IgG Ab Reactive A 07/15/20 07/15/20 07/16/20 18:24 23:35 04:03 WBC RBC Hgb Lymph % (Auto) Lymph # (Auto) Seg Neuts % (Manual) Lymphocytes % (Manual) Seg Neutrophils # Seg Neutrophils # Man Lymphocytes # (Manual) D-Dimer ABG pH POC ABG pCO2 POC ABG pO2 ABG pO2 72.7 L ABG HCO3 35.5 H ABG O2 Saturation ABG Base Excess 9.4 H ABG Hemoglobin 10.6 L ABG Glucose Oxyhemoglobin 93.6 L Chloride Carbon Dioxide BUN Creatinine Glucose POC Glucose 173 H 181 H Calcium Ferritin Lactate Dehydrogenase C-Reactive Protein Total Protein Albumin Arterial Blood Glucose Arterial Blood Ionized Calcium SARS-CoV-2 IgG Ab 07/16/20 07/16/20 07/16/20 05:35 09:00 09:00 WBC 16.5 H RBC 3.59 L Hgb Lymph % (Auto) Lymph # (Auto) Seg Neuts % (Manual) 96.0 H Lymphocytes % (Manual) 3.0 L Seg Neutrophils # Seg Neutrophils # Man 15.8 H Lymphocytes # (Manual) 0.5 L D-Dimer ABG pH POC ABG pCO2 POC ABG pO2 ABG pO2 ABG HCO3 ABG O2 Saturation ABG Base Excess ABG Hemoglobin ABG Glucose Oxyhemoglobin Chloride Carbon Dioxide 39 H D BUN 25 H Creatinine 0.4 L Glucose 167 H POC Glucose 129 H Calcium 8.3 L Ferritin Lactate Dehydrogenase C-Reactive Protein Total Protein Albumin Arterial Blood Glucose Arterial Blood Ionized Calcium SARS-CoV-2 IgG Ab 07/16/20 12:32 WBC RBC Hgb Lymph % (Auto) Lymph # (Auto) Seg Neuts % (Manual) Lymphocytes % (Manual) Seg Neutrophils # Seg Neutrophils # Man Lymphocytes # (Manual) D-Dimer ABG pH POC ABG pCO2 POC ABG pO2 ABG pO2 ABG HCO3 ABG O2 Saturation ABG Base Excess ABG Hemoglobin ABG Glucose Oxyhemoglobin Chloride Carbon Dioxide BUN Creatinine Glucose POC Glucose 187 H Calcium Ferritin Lactate Dehydrogenase C-Reactive Protein Total Protein Albumin Arterial Blood Glucose Arterial Blood Ionized Calcium SARS-CoV-2 IgG Ab Chest x-ray: pending Allied health notes reviewed: nursing
[2020-07-16] MEDS ORDERED: MAGNESIUM CITRATE 300 ML ORAL LIQD PO ONE (16:53)
[2020-07-16] MEDS: INSULIN GLARGINE 100 UNITS/ML SUB-Q SCH (17:26)
--- NOTE | 2020-07-16 18:06 | Progress Note ---
Assessment and Plan --Acute asthma exacerbation on iv steroid Oxygen supplementation as needed Continue montelukast Monitor oxygen saturations closely -- COVID-19 Tested positive for COVID-19 in [place] iv steroid, s/p Remdesivir for 5 days s/p convalescent plasma transfusion Procalcitonin <0.05 ID on board follow ferritin, ldh, d-dimer levels -- Acute hypoxic respiratory failure Now intubated on 07/09/20 overnight From COVID-19 and asthma exacerbation Continue steroids Continue oxygen supplementation -- GERD (gastroesophageal reflux disease) cont Pantoprazole --SLE (systemic lupus erythematosus related syndrome) Continue home medications-hydroxychloroquine -- DVT prophylaxis Lovenox 30 mg twice daily -- Full code status The high probability of a clinically significant, sudden or life threatening deterioration of the [[employer], respiratory, [employer]] system(s) required my full and direct attention, intervention and personal management. The aggregate critical care time was [33] minutes. This time is in addition to time spent performing reported procedures but includes the following: [x] Data Review and interpretation [x] Patient assessment and monitoring of vital signs [x] Documentation [x] Medication orders and management brief History: 50-year-old female with a past medical history of asthma, hypertension, and lupus complains of generalized body weakness, fever and shortness of breath. Patient states the symptoms started right after she was discharged from [place] on 07/05. She has associated wheezing, fever, cough and she has been using her inhalers with no significant effect. She also has associated diarrhea. Of note, she was hospitalized here in [facility] on 06/28 for asthma exacerbation and had a negative Covid test during the admission. She was treated and discharged. She presented to [place] for further evaluation after discharge from here and over there, she was found to have positive COVID-19 test and she was placed on steroids and subsequently discharged on Eliquis prophylaxis for DVT. She states that she did not receive remdesivir during the admission. She was discharged from [place] on 07/05. She went home and felt worse. She said that she passed out about 2 times. Due to persistent symptoms, she called EMS who brought her to [facility] for further evaluation. Daily course: 07/07. Patient seen and examined at bedside this morning. Patient is wheezing and slightly short of breath. Change steroids to Solu-Medrol 60 every 6. Added formoterol and budesonide. ID evaluation pending. Started patient on remdesivir as she is short of breath. 07/07: Placed on BIPAP this AM. Will need pulm evaluation. Solumedrol 60mg q6. STAT blood gas ordered. She will be transferred to [facility]. 07/08: Patient took oxygen off and attempts to go to the bathroom and subsequently became hypoxemic with sats down into the low 80s. Patient became weak short of breath. After that time patient had persistent coughing and cannot maintain sats until nonrebreather was placed. Patient is transferred to the ICU unit and monitored for respiratory failure possibly requiring intubation. 07/09: ID recommended for convalescent plasma, ordered. Patient intubated overnight. Continue to monitor clinically, scheduled lab, follow inflammatory markers 07/10: Wait for convalescent plasma transfusion, wean off from ventilator as tolerated 07/11: Called patient's daughter and updated. Continue to wean off vent as tolerated, continue tube feeding, monitor vital sign CBC BMP daily. 07/12: remains intubated and sedated. follow inflammatory markers - wean off vent as tolerated 07/13: wean off vent as tolerated, cxr in the am. reviewed vitals 07/14: remains intubated, has not received convalescent plasma yet. Reviewed vitals, tolerating tube feeding. Wean off vent per critical care as tolerated. 07/15: cont to provide supportive care, wean off vent as tolerated - difficult to wean off. 07/16: CXR findings improving, cont to wean off vent Subjective Date of service: 07/16/20 Principal diagnosis: Ac hypoxemic resp failure; PNA; COVID-19 infxn; SLE; Asthma exacerbation Interval history: Patient seen and examined Patient remains intubated on mechanical ventilation Discussed with RN at the bedside, on tube feeding Reviewed vitals, Objective - Exam Narrative Exam: GENERAL: well-developed obese -[place] female lying on bed intubated and sedated HEENT: Normocephalic. Atraumatic. No conjunctival congestion or icterus. Patient has moist mucous membranes. NECK: Supple. Trachea midline. ET tube in place, intubated with mechanical ventilation CHEST/LUNGS: Diffuse expiratory wheezes, coarse breath sound bilaterally HEART/CARDIOVASCULAR: Regular in rate and rhythm. S1 and S2 positive. ABDOMEN: Abdomen is soft, nontender. Patient has normal bowel sounds. SKIN: There is no rash. Warm and dry. NEURO: Sedated MUSCULOSKELETAL: No joint effusion or tenderness. EXTRIMITY: No edema, no cyanosis or clubbing. PSYCH: Unable to assess - Constitutional Vitals: Vital Signs - 12hr 07/16/20 07/16/20 07/16/20 06:30 07:00 07:30 Pulse Rate 59 L 54 L 68 Pulse Rate [ Bilateral Throughout] Pulse Rate [ From Monitor] Respiratory 17 16 21 Rate Respiratory Rate [Bilateral Throughout] Respiratory Rate [Chest] Blood Pressure 100/54 104/51 118/65 O2 Sat by Pulse 95 97 91 Oximetry 07/16/20 07/16/20 07/16/20 08:00 08:30 08:35 Pulse Rate 72 80 Pulse Rate [ 79 Bilateral Throughout] Pulse Rate [ 75 From Monitor] Respiratory 12 17 Rate Respiratory 20 Rate [Bilateral Throughout] Respiratory Rate [Chest] Blood Pressure 124/66 130/72 O2 Sat by Pulse 94 94 Oximetry 07/16/20 07/16/20 07/16/20 08:40 09:00 09:30 Pulse Rate 85 109 H 77 Pulse Rate [ Bilateral Throughout] Pulse Rate [ From Monitor] Respiratory 30 H 16 Rate Respiratory Rate [Bilateral Throughout] Respiratory Rate [Chest] Blood Pressure 130/72 130/72 112/64 O2 Sat by Pulse 94 88 96 Oximetry 07/16/20 07/16/20 07/16/20 10:00 10:30 11:00 Pulse Rate 73 69 67 Pulse Rate [ Bilateral Throughout] Pulse Rate [ From Monitor] Respiratory 16 15 15 Rate Respiratory Rate [Bilateral Throughout] Respiratory 20 Rate [Chest] Blood Pressure 106/58 103/60 96/64 O2 Sat by Pulse 95 95 96 Oximetry 07/16/20 07/16/20 07/16/20 11:30 12:00 12:30 Pulse Rate 64 69 64 Pulse Rate [ Bilateral Throughout] Pulse Rate [ 66 From Monitor] Respiratory 16 15 14 Rate Respiratory Rate [Bilateral Throughout] Respiratory Rate [Chest] Blood Pressure 95/56 96/57 97/59 O2 Sat by Pulse 98 95 95 Oximetry 07/16/20 07/16/20 07/16/20 12:58 13:00 13:22 Pulse Rate 64 66 Pulse Rate [ 66 Bilateral Throughout] Pulse Rate [ From Monitor] Respiratory 16 Rate Respiratory 18 Rate [Bilateral Throughout] Respiratory Rate [Chest] Blood Pressure 99/62 99/62 O2 Sat by Pulse 96 94 Oximetry 07/16/20 07/16/20 07/16/20 13:30 14:00 14:30 Pulse Rate 69 64 63 Pulse Rate [ Bilateral Throughout] Pulse Rate [ From Monitor] Respiratory 13 16 15 Rate Respiratory Rate [Bilateral Throughout] Respiratory Rate [Chest] Blood Pressure 97/53 103/60 92/53 O2 Sat by Pulse 94 95 96 Oximetry 07/16/20 07/16/20 07/16/20 15:00 15:30 15:54 Pulse Rate 68 64 63 Pulse Rate [ Bilateral Throughout] Pulse Rate [ From Monitor] Respiratory 16 15 Rate Respiratory Rate [Bilateral Throughout] Respiratory Rate [Chest] Blood Pressure 92/53 113/64 113/64 O2 Sat by Pulse 95 93 93 Oximetry 07/16/20 07/16/20 07/16/20 16:00 16:30 17:00 Pulse Rate 69 67 71 Pulse Rate [ Bilateral Throughout] Pulse Rate [ 71 From Monitor] Respiratory 14 14 18 Rate Respiratory Rate [Bilateral Throughout] Respiratory Rate [Chest] Blood Pressure 109/67 129/79 140/76 O2 Sat by Pulse 93 93 96 Oximetry - Labs CBC & Chem 7: 07/16/20 09:00 07/16/20 09:00 Labs: Abnormal lab results 07/15/20 07/15/20 07/16/20 Range/Units 18:24 23:35 04:03 WBC (4.5-11.0) K/mm3 RBC (3.65-5.03) M/mm3 Seg Neuts % (Manual) (40.0-70.0) % Lymphocytes % (Manual) (13.4-35.0) % Seg Neutrophils # Man (1.8-7.7) K/mm3 Lymphocytes # (Manual) (1.2-5.4) K/mm3 ABG pO2 72.7 L (80.0-90.0) mm Hg ABG HCO3 35.5 H (20.0-26.0) mmol/L ABG Base Excess 9.4 H (-2.0-3.0) mmol/L ABG Hemoglobin 10.6 L (12.0-16.0) gm/dl Oxyhemoglobin 93.6 L (95.0-99.0) % Carbon Dioxide (22-30) mmol/L BUN (7-17) mg/dL Creatinine (0.6-1.2) mg/dL Glucose (65-100) mg/dL POC Glucose 173 H 181 H (70-105) mg/dL Calcium (8.4-10.2) mg/dL 07/16/20 07/16/20 07/16/20 Range/Units 05:35 09:00 09:00 WBC 16.5 H (4.5-11.0) K/mm3 RBC 3.59 L (3.65-5.03) M/mm3 Seg Neuts % (Manual) 96.0 H (40.0-70.0) % Lymphocytes % (Manual) 3.0 L (13.4-35.0) % Seg Neutrophils # Man 15.8 H (1.8-7.7) K/mm3 Lymphocytes # (Manual) 0.5 L (1.2-5.4) K/mm3 ABG pO2 (80.0-90.0) mm Hg ABG HCO3 (20.0-26.0) mmol/L ABG Base Excess (-2.0-3.0) mmol/L ABG Hemoglobin (12.0-16.0) gm/dl Oxyhemoglobin (95.0-99.0) % Carbon Dioxide 39 H D (22-30) mmol/L BUN 25 H (7-17) mg/dL Creatinine 0.4 L (0.6-1.2) mg/dL Glucose 167 H (65-100) mg/dL POC Glucose 129 H (70-105) mg/dL Calcium 8.3 L (8.4-10.2) mg/dL 07/16/20 Range/Units 12:32 WBC (4.5-11.0) K/mm3 RBC (3.65-5.03) M/mm3 Seg Neuts % (Manual) (40.0-70.0) % Lymphocytes % (Manual) (13.4-35.0) % Seg Neutrophils # Man (1.8-7.7) K/mm3 Lymphocytes # (Manual) (1.2-5.4) K/mm3 ABG pO2 (80.0-90.0) mm Hg ABG HCO3 (20.0-26.0) mmol/L ABG Base Excess (-2.0-3.0) mmol/L ABG Hemoglobin (12.0-16.0) gm/dl Oxyhemoglobin (95.0-99.0) % Carbon Dioxide (22-30) mmol/L BUN (7-17) mg/dL Creatinine (0.6-1.2) mg/dL Glucose (65-100) mg/dL POC Glucose 187 H (70-105) mg/dL Calcium (8.4-10.2) mg/dL
[2020-07-16] MEDS: POLYETHYLENE GLYCOL 3350 17 GM POWDER PO SCH (22:04)
[2020-07-16] MEDS: DOCUSATE SODIUM 100 MG/10 ML ORAL LIQD PO SCH (22:05)
[2020-07-16] MEDS: MONTELUKAST 10 MG TAB PO SCH (22:09)
[2020-07-17] MEDS: fentaNYL DRIP Premix 2,000 MCG/100 ML BAG IV SCH ×4 (05:39→20:53)
[2020-07-17] MEDS: methylPREDNISolone Sod Succinate 125 MG/2 ML INJ IV SCH ×4 (05:39→18:49)
[2020-07-17] MEDS: MIDAZOLAM 100 MG in SODIUM CHLORIDE 0.9% 80 ML IV SCH ×2 (05:41→08:28)
[2020-07-17 05:54] LABS: ABG Base Excess 11.3 mmol/L (-2.0-3.0); ABG HCO3 38.1 mmol/L (20.0-26.0); ABG Methemoglobin 0.4 % (0.0-1.5); ABG Oxygen Saturation 96.7 % (95.0-99.0); ABG PCO2 62.9 mm Hg; ABG PH 7.4 pH Units (7.350-7.450); ABG PO2 83.1 mm Hg (80.0-90.0)
[2020-07-17] MEDS: INSULIN REGULAR, HUMAN 100 UNIT/ML 3ML VIAL SUB-Q SCH ×4 (06:05→16:39)
[2020-07-17] MEDS: ALBUTEROL 2.5 MG/3 ML NEBU IH SCH ×3 (08:34→19:33)
[2020-07-17] MEDS: ARFORMOTEROL 15 MCG/2 ML NEBU IH SCH ×2 (08:34→19:32)
[2020-07-17] MEDS: BUDESONIDE 0.5 MG/2 ML NEBU IH SCH ×2 (08:34→19:32)
[2020-07-17] MEDS: ENOXAPARIN 30 MG/0.3 ML INJ SUB-Q SCH ×2 (09:50→21:00)
[2020-07-17] MEDS: DOCUSATE SODIUM 100 MG/10 ML ORAL LIQD PO SCH ×2 (09:50→21:00)
[2020-07-17] MEDS: ASPIRIN 81 MG TAB CHEW PO SCH (09:50)
[2020-07-17] MEDS: ASCORBIC ACID 500 MG TAB PO SCH (09:50)
[2020-07-17] MEDS: QUEtiapine 200 MG TAB PO SCH ×2 (09:50→21:00)
[2020-07-17] MEDS: HYDROXYCHLOROQUINE 200 MG TAB PO SCH (09:50)
[2020-07-17] MEDS: LANSOPRAZOLE 30 MG SOLUTAB FEEDTUBE SCH (09:50)
[2020-07-17] MEDS: VENLAFAXINE 37.5 MG TAB PO SCH (09:50)
[2020-07-17] MEDS: ZINC SULFATE 220 MG CAP PO SCH ×2 (09:50→21:00)
--- NOTE | 2020-07-17 11:27 | Progress Note ---
Assessment and Plan Cultures: Blood cultures 07/07/2020 no growth today SARS COV2- IgG negative Sputum culture 07/08/2020 usual respiratory [place] Blood culture 07/11/2020 no growth today MRSA nasal culture: Negative Tracheal aspirate 07/12/2020: Usual respiratory [place] A/P: 50-year-old female with CHF, asthma, hypertension, lupus was admitted to the hospital with complaints of fever, shortness of breath. Of note, she was seen last week due to an asthma exacerbation when her SARS-CoV-2 PCR and IgG were both negative. She was treated with steroids. She reportedly then went to [place] and tested positive for COVID-19 and was discharged from the hospital on 07/05/2020 readmitted here with: #Critical COVID pneumonia (was diagnosed at [place] and discharged): completed Remdesivir. Remains on steroids per pulm. S/P CCP. #Acute asthma exacerbation: on nebs and steroids. #Acute hypoxic respiratory failure: Remains intubated #Lupus, immunocompromised host: On Plaquenil. Recs: On steroids, wean per pulmonary/ICU prophylactic anticoagulation based on d-dimer trend ferritin, LDH, d-dimer, CRP every 2-3 days for risk stratification and to assess disease progression Leucocytosis is likely due to steroids Marquez Aponte MD, FACP [facility] O: [phone] F: [phone] Subjective Date of service: 07/17/20 Principal diagnosis: Ac hypoxemic resp failure; PNA; COVID-19 infxn; SLE; Asthma exacerbation Interval history: Afebrile. Remains on the vent. Objective - Exam Narrative Exam: Physical Exam (reviewed in chart due to PPE conservation and minimize risk of transmission) Constitutional: limited due to PPE conservation strategy Head, Ears, Nose: limited due to PPE conservation strategy Eyes: limited due to PPE conservation strategy Neck: limited due to PPE conservation strategy Oral: limited due to PPE conservation strategy Cardiovascular: limited due to PPE conservation strategy Respiratory: limited due to PPE conservation strategy GI: limited due to PPE conservation strategy Musculoskeletal: limited due to PPE conservation strategy Skin: limited due to PPE conservation strategy Hem/Lymphatic: limited due to PPE conservation strategy Psych: limited due to PPE conservation strategy Neurological: limited due to PPE conservation strategy - Constitutional Vitals: Vital Signs Temp Pulse Resp BP Pulse Ox 98.6 F 63 22 100/48 96 07/17/20 08:00 07/17/20 11:16 07/17/20 08:34 07/17/20 11:16 07/17/20 11:16 Temperature -Last 24 Hours Temperature 98.6 F Temperature 98.3 F Temperature 97.9 F Temperature 98.0 F Temperature 97.6 F - Labs CBC & Chem 7: 07/16/20 09:00 07/16/20 09:00 Labs: Abnormal lab results 07/16/20 07/16/20 07/16/20 Range/Units 09:00 12:32 18:28 Seg Neuts % (Manual) 96.0 H (40.0-70.0) % Lymphocytes % (Manual) 3.0 L (13.4-35.0) % Seg Neutrophils # Man 15.8 H (1.8-7.7) K/mm3 Lymphocytes # (Manual) 0.5 L (1.2-5.4) K/mm3 ABG HCO3 (20.0-26.0) mmol/L ABG Base Excess (-2.0-3.0) mmol/L ABG Hemoglobin (12.0-16.0) gm/dl POC Glucose 187 H 174 H (70-105) mg/dL 07/17/20 07/17/20 07/17/20 Range/Units 00:09 04:30 05:47 Seg Neuts % (Manual) (40.0-70.0) % Lymphocytes % (Manual) (13.4-35.0) % Seg Neutrophils # Man (1.8-7.7) K/mm3 Lymphocytes # (Manual) (1.2-5.4) K/mm3 ABG HCO3 38.1 H (20.0-26.0) mmol/L ABG Base Excess 11.3 H (-2.0-3.0) mmol/L ABG Hemoglobin 10.5 L (12.0-16.0) gm/dl POC Glucose 184 H 135 H (70-105) mg/dL
--- NOTE | 2020-07-17 13:50 | Progress Note ---
Assessment and Plan Acute hypoxemic respiratory failure, now on MVS Bilateral pneumonia, left greater than right lungs. COVID-19 infection. History of congestive heart failure. History of lupus erythematosus. Leukocytosis. Tobacco use disorder. Acute asthma exacerbation. History of hypertension. Obesity - continue bowel regimen for constipation - keep peep at 12 for now - continue to wean supplemental oxygen for target O2 sat's > 92% - no new issues otherwise, continue care as below; - continue Lantus 5 units SQ q24h - continue low dose SSI - continue Seroquel 200 mg p.o. bid - continue airborne and contact isolation - follow repeat COVID-19 testing - continue Zinc & Vit C supplementaion - complete Remdesivir - empiric AB's coverage per ID rec's otherwise - continue systemic steroids for Asthma / severe COVID infection - continue Daily SAT and SBT assessment as tolerated - VAP bundle addressed - continue lung protective strategies - continue bronchodilators with pulmonary hygiene per RT - wean per pulmonary driven protocols otherwise - accuchecks with glycemic control per SSI (While critically ill target blood glucose of 140-180 mg/dL; avoid hypoglycemia) - sedation prn for target RASS -1 to -2 - avoid nephrotoxins, renally dose all medications - continue to avoid benzodiazepine's, reduce the possibility of delirium - prn analgesia per CPOT score - Maintenance of sleep-wake cycle, avoid delirium - continue enteral nutritional support at goal rate as tolerated - G.I. & VTE prophylaxis - PT/OT/ROM exercises - continue mobility protocols for pressure ulcer prophylaxis - Monitor hemodynamics closely - continue other care per attending / other consultants - discharge planning ongoing concurrently .... Re-evaluate in am & prn CONDITION: CRITICAL PROGNOSIS: GUARDED CODE STATUS: FULL CODE The high probability of a clinically significant, sudden or life-threatening deterioration of the [respiratory, cardiovascular & neurologic] system(s) required my full and direct attention, intervention and personal management. The aggregate critical care time was [34] minutes without overlap. Time includes spent on; [x] Data Review and interpretation [x] Patient assessment and monitoring of vital signs [x] Documentation [x] Medication orders and management Subjective Date of service: 07/17/20 Principal diagnosis: Ac hypoxemic resp failure; PNA; COVID-19 infxn; SLE; Asthma exacerbation Interval history: Patient is seen today for: Acute hypoxemic respiratory failure; Bilateral pneumonia; COVID-19 infection; H/O CHF; SLE; Acute asthma exacerbation. HTN; Obesity Seen and examined at bedside; 24hour events reviewed; nursing and respiratory care staff consulted; no adverse overnight events reported to me; resting peacefully in bed; remains on MVS; FiO2 labile but down to 55%; No N/V/F/C; she denies chest pains or palpitations Objective Vital Signs - 12hr 07/17/20 07/17/20 07/17/20 02:00 02:30 03:00 Temperature Pulse Rate 55 L 55 L 57 L Pulse Rate [ Bilateral Throughout] Pulse Rate [ From Monitor] Respiratory 14 16 16 Rate Respiratory Rate [Bilateral Throughout] Respiratory Rate [Chest] Blood Pressure 123/60 118/66 120/59 O2 Sat by Pulse 97 97 96 Oximetry 07/17/20 07/17/20 07/17/20 03:30 04:00 04:30 Temperature 98.3 F Pulse Rate 59 L 58 L 64 Pulse Rate [ Bilateral Throughout] Pulse Rate [ From Monitor] Respiratory 15 16 13 Rate Respiratory Rate [Bilateral Throughout] Respiratory Rate [Chest] Blood Pressure 116/68 116/64 134/68 O2 Sat by Pulse 94 94 98 Oximetry 07/17/20 07/17/20 07/17/20 05:00 05:17 05:30 Temperature Pulse Rate 60 72 70 Pulse Rate [ Bilateral Throughout] Pulse Rate [ From Monitor] Respiratory 13 20 Rate Respiratory Rate [Bilateral Throughout] Respiratory Rate [Chest] Blood Pressure 120/65 120/65 134/75 O2 Sat by Pulse 95 98 98 Oximetry 07/17/20 07/17/20 07/17/20 06:00 06:30 07:00 Temperature Pulse Rate 83 70 61 Pulse Rate [ Bilateral Throughout] Pulse Rate [ From Monitor] Respiratory 18 15 16 Rate Respiratory Rate [Bilateral Throughout] Respiratory Rate [Chest] Blood Pressure 138/61 130/67 135/66 O2 Sat by Pulse 98 97 100 Oximetry 07/17/20 07/17/20 07/17/20 07:30 08:00 08:30 Temperature 98.6 F Pulse Rate 64 71 75 Pulse Rate [ Bilateral Throughout] Pulse Rate [ 64 From Monitor] Respiratory 16 15 15 Rate Respiratory Rate [Bilateral Throughout] Respiratory Rate [Chest] Blood Pressure 127/70 130/73 143/80 O2 Sat by Pulse 97 96 98 Oximetry 07/17/20 07/17/20 07/17/20 08:34 09:00 09:30 Temperature Pulse Rate 75 80 Pulse Rate [ 86 Bilateral Throughout] Pulse Rate [ From Monitor] Respiratory 13 15 Rate Respiratory 22 Rate [Bilateral Throughout] Respiratory Rate [Chest] Blood Pressure 151/77 149/76 O2 Sat by Pulse 92 94 Oximetry 07/17/20 07/17/20 07/17/20 10:00 10:30 11:00 Temperature Pulse Rate 83 75 64 Pulse Rate [ Bilateral Throughout] Pulse Rate [ From Monitor] Respiratory 18 15 16 Rate Respiratory Rate [Bilateral Throughout] Respiratory 16 Rate [Chest] Blood Pressure 131/70 111/56 100/48 O2 Sat by Pulse 95 92 93 Oximetry 07/17/20 07/17/20 07/17/20 11:16 11:43 13:40 Temperature Pulse Rate 63 58 L Pulse Rate [ Bilateral Throughout] Pulse Rate [ 65 From Monitor] Respiratory 16 Rate Respiratory Rate [Bilateral Throughout] Respiratory Rate [Chest] Blood Pressure 100/48 102/45 O2 Sat by Pulse 96 94 96 Oximetry 07/17/20 13:42 Temperature Pulse Rate Pulse Rate [ 59 L Bilateral Throughout] Pulse Rate [ From Monitor] Respiratory Rate Respiratory 16 Rate [Bilateral Throughout] Respiratory Rate [Chest] Blood Pressure O2 Sat by Pulse Oximetry Constitutional: no acute distress, other (middle aged obese female with mildly increased respiratory effort at rest on MVS) Eyes: non-icteric ENT: oropharynx moist, other (ETT 24 cm YANET) Neck: supple, no lymphadenopathy, no JVD Effort: mildly labored Ascultation: Bilateral: diminished breath sounds, rhonchi Percussion: Bilateral: not dull Cardiovascular: regular rate and rhythm Gastrointestinal: normoactive bowel sounds, soft, non-tender, non-distended Integumentary: normal Extremities: no cyanosis, no edema, pulses normal, no ischemia or petechiae Neurologic: normal mental status, non-focal exam, pupils equal and round, motor strength normal and Psychiatric: anxious CBC and BMP: 07/16/20 09:00 07/16/20 09:00 ABG, PT/INR, D-dimer: ABG ABG pH 7.400 pH Units (7.350-7.450) 07/17/20 04:30 POC ABG pCO2 49.2 mmHg (32.0-48.0) H 07/15/20 03:16 ABG pCO2 62.9 mm Hg 07/17/20 04:30 POC ABG pO2 120.3 mmHg (83-108) H 07/15/20 03:16 ABG pO2 83.1 mm Hg (80.0-90.0) 07/17/20 04:30 POC ABG HCO3 28.5 07/15/20 03:16 ABG O2 Saturation 96.7 % (95.0-99.0) 07/17/20 04:30 PT/INR, D-dimer D-Dimer 826.36 ng/mlDDU (0-234) H 07/13/20 07:20 Abnormal lab findings: Abnormal Labs 07/06/20 07/06/20 07/07/20 05:24 17:16 04:50 WBC 13.5 H 12.7 H RBC Hgb Lymph % (Auto) Lymph # (Auto) Seg Neuts % (Manual) 86.0 H 87.0 H Lymphocytes % (Manual) 6.0 L 9.0 L Seg Neutrophils # Seg Neutrophils # Man 11.6 H 11.0 H Lymphocytes # (Manual) 0.8 L 1.1 L D-Dimer ABG pH POC ABG pCO2 POC ABG pO2 ABG pO2 ABG HCO3 ABG O2 Saturation ABG Base Excess ABG Hemoglobin ABG Glucose Oxyhemoglobin Chloride Carbon Dioxide BUN Creatinine Glucose POC Glucose Calcium Ferritin Lactate Dehydrogenase 242 H C-Reactive Protein 7.30 H Total Protein Albumin Arterial Blood Glucose Arterial Blood Ionized Calcium SARS-CoV-2 IgG Ab 07/07/20 07/07/20 07/07/20 04:50 14:22 14:22 WBC RBC Hgb Lymph % (Auto) Lymph # (Auto) Seg Neuts % (Manual) Lymphocytes % (Manual) Seg Neutrophils # Seg Neutrophils # Man Lymphocytes # (Manual) D-Dimer ABG pH POC ABG pCO2 POC ABG pO2 ABG pO2 ABG HCO3 ABG O2 Saturation ABG Base Excess ABG Hemoglobin ABG Glucose Oxyhemoglobin Chloride Carbon Dioxide BUN 18 H Creatinine Glucose 138 H POC Glucose Calcium Ferritin 228.2 H Lactate Dehydrogenase 277 H C-Reactive Protein Total Protein 5.9 L Albumin 3.4 L Arterial Blood Glucose Arterial Blood Ionized Calcium SARS-CoV-2 IgG Ab 07/08/20 07/08/20 07/08/20 11:18 12:57 16:13 WBC RBC Hgb Lymph % (Auto) Lymph # (Auto) Seg Neuts % (Manual) Lymphocytes % (Manual) Seg Neutrophils # Seg Neutrophils # Man Lymphocytes # (Manual) D-Dimer ABG pH POC ABG pCO2 POC ABG pO2 ABG pO2 39.3 L* ABG HCO3 ABG O2 Saturation 76.8 L ABG Base Excess ABG Hemoglobin ABG Glucose Oxyhemoglobin 75.3 L Chloride Carbon Dioxide 20 L D BUN Creatinine Glucose 135 H POC Glucose 106 H Calcium 8.0 L Ferritin Lactate Dehydrogenase C-Reactive Protein Total Protein Albumin Arterial Blood Glucose Arterial Blood Ionized Calcium SARS-CoV-2 IgG Ab 07/08/20 07/08/20 07/09/20 17:04 18:45 04:00 WBC 15.6 H RBC Hgb Lymph % (Auto) 4.7 L Lymph # (Auto) 0.7 L Seg Neuts % (Manual) Lymphocytes % (Manual) Seg Neutrophils # 14.2 H Seg Neutrophils # Man Lymphocytes # (Manual) D-Dimer ABG pH POC ABG pCO2 POC ABG pO2 ABG pO2 181.8 H ABG HCO3 ABG O2 Saturation 99.1 H ABG Base Excess ABG Hemoglobin 11.4 L ABG Glucose Oxyhemoglobin Chloride Carbon Dioxide BUN Creatinine Glucose POC Glucose 117 H Calcium Ferritin Lactate Dehydrogenase C-Reactive Protein Total Protein Albumin Arterial Blood Glucose Arterial Blood Ionized Calcium SARS-CoV-2 IgG Ab 07/09/20 07/09/20 07/09/20 04:00 04:00 04:49 WBC RBC Hgb Lymph % (Auto) Lymph # (Auto) Seg Neuts % (Manual) Lymphocytes % (Manual) Seg Neutrophils # Seg Neutrophils # Man Lymphocytes # (Manual) D-Dimer ABG pH POC ABG pCO2 POC ABG pO2 ABG pO2 ABG HCO3 26.2 H ABG O2 Saturation ABG Base Excess ABG Hemoglobin 11.2 L ABG Glucose Oxyhemoglobin 94.9 L Chloride Carbon Dioxide BUN Creatinine Glucose 158 H POC Glucose Calcium 8.2 L Ferritin 320.0 H Lactate Dehydrogenase 391 H C-Reactive Protein 9.50 H Total Protein 5.9 L Albumin 3.2 L Arterial Blood Glucose Arterial Blood Ionized Calcium SARS-CoV-2 IgG Ab 07/09/20 07/09/20 07/09/20 11:56 17:49 23:39 WBC RBC Hgb Lymph % (Auto) Lymph # (Auto) Seg Neuts % (Manual) Lymphocytes % (Manual) Seg Neutrophils # Seg Neutrophils # Man Lymphocytes # (Manual) D-Dimer ABG pH POC ABG pCO2 POC ABG pO2 ABG pO2 ABG HCO3 ABG O2 Saturation ABG Base Excess ABG Hemoglobin ABG Glucose Oxyhemoglobin Chloride Carbon Dioxide BUN Creatinine Glucose POC Glucose 156 H 119 H 145 H Calcium Ferritin Lactate Dehydrogenase C-Reactive Protein Total Protein Albumin Arterial Blood Glucose Arterial Blood Ionized Calcium SARS-CoV-2 IgG Ab 07/10/20 07/10/20 07/10/20 03:32 05:26 11:22 WBC RBC Hgb Lymph % (Auto) Lymph # (Auto) Seg Neuts % (Manual) Lymphocytes % (Manual) Seg Neutrophils # Seg Neutrophils # Man Lymphocytes # (Manual) D-Dimer ABG pH POC ABG pCO2 POC ABG pO2 ABG pO2 75.7 L ABG HCO3 27.5 H ABG O2 Saturation ABG Base Excess ABG Hemoglobin 9.3 L ABG Glucose Oxyhemoglobin 94.7 L Chloride Carbon Dioxide BUN Creatinine Glucose POC Glucose 156 H 148 H Calcium Ferritin Lactate Dehydrogenase C-Reactive Protein Total Protein Albumin Arterial Blood Glucose Arterial Blood Ionized Calcium SARS-CoV-2 IgG Ab 07/10/20 07/10/20 07/10/20 12:10 12:10 18:20 WBC 14.1 H RBC 3.33 L Hgb 9.9 L Lymph % (Auto) Lymph # (Auto) Seg Neuts % (Manual) 89.0 H Lymphocytes % (Manual) 8.0 L Seg Neutrophils # Seg Neutrophils # Man 12.5 H Lymphocytes # (Manual) 1.1 L D-Dimer ABG pH POC ABG pCO2 POC ABG pO2 ABG pO2 ABG HCO3 ABG O2 Saturation ABG Base Excess ABG Hemoglobin ABG Glucose Oxyhemoglobin Chloride Carbon Dioxide BUN 21 H Creatinine Glucose 154 H POC Glucose 181 H Calcium 8.0 L Ferritin Lactate Dehydrogenase C-Reactive Protein Total Protein 5.4 L Albumin 3.0 L Arterial Blood Glucose Arterial Blood Ionized Calcium SARS-CoV-2 IgG Ab 07/10/20 07/11/20 07/11/20 23:51 04:05 05:43 WBC RBC Hgb Lymph % (Auto) Lymph # (Auto) Seg Neuts % (Manual) Lymphocytes % (Manual) Seg Neutrophils # Seg Neutrophils # Man Lymphocytes # (Manual) D-Dimer ABG pH 7.348 L POC ABG pCO2 POC ABG pO2 ABG pO2 93.6 H ABG HCO3 28.5 H ABG O2 Saturation ABG Base Excess ABG Hemoglobin 10.1 L ABG Glucose Oxyhemoglobin Chloride Carbon Dioxide BUN Creatinine Glucose POC Glucose 116 H 132 H Calcium Ferritin Lactate Dehydrogenase C-Reactive Protein Total Protein Albumin Arterial Blood Glucose Arterial Blood Ionized Calcium SARS-CoV-2 IgG Ab 07/11/20 07/11/20 07/11/20 09:11 09:11 09:11 WBC 15.8 H RBC 3.44 L Hgb Lymph % (Auto) Lymph # (Auto) Seg Neuts % (Manual) 92.0 H Lymphocytes % (Manual) 4.0 L Seg Neutrophils # Seg Neutrophils # Man 14.5 H Lymphocytes # (Manual) 0.6 L D-Dimer 360.61 H ABG pH POC ABG pCO2 POC ABG pO2 ABG pO2 ABG HCO3 ABG O2 Saturation ABG Base Excess ABG Hemoglobin ABG Glucose Oxyhemoglobin Chloride 107.1 H Carbon Dioxide BUN 22 H Creatinine Glucose 149 H POC Glucose Calcium 7.8 L Ferritin Lactate Dehydrogenase 483 H C-Reactive Protein 2.30 H Total Protein 4.9 L Albumin 3.0 L Arterial Blood Glucose Arterial Blood Ionized Calcium SARS-CoV-2 IgG Ab 07/11/20 07/11/20 07/11/20 09:11 12:16 17:55 WBC RBC Hgb Lymph % (Auto) Lymph # (Auto) Seg Neuts % (Manual) Lymphocytes % (Manual) Seg Neutrophils # Seg Neutrophils # Man Lymphocytes # (Manual) D-Dimer ABG pH POC ABG pCO2 POC ABG pO2 ABG pO2 ABG HCO3 ABG O2 Saturation ABG Base Excess ABG Hemoglobin ABG Glucose Oxyhemoglobin Chloride Carbon Dioxide BUN Creatinine Glucose POC Glucose 157 H 166 H Calcium Ferritin 371.2 H Lactate Dehydrogenase C-Reactive Protein Total Protein Albumin Arterial Blood Glucose Arterial Blood Ionized Calcium SARS-CoV-2 IgG Ab 07/12/20 07/12/20 07/12/20 00:32 04:00 04:00 WBC RBC 3.52 L Hgb Lymph % (Auto) Lymph # (Auto) Seg Neuts % (Manual) 90.0 H Lymphocytes % (Manual) 4.0 L Seg Neutrophils # Seg Neutrophils # Man 9.5 H Lymphocytes # (Manual) 0.4 L D-Dimer ABG pH POC ABG pCO2 POC ABG pO2 ABG pO2 ABG HCO3 ABG O2 Saturation ABG Base Excess ABG Hemoglobin ABG Glucose Oxyhemoglobin Chloride Carbon Dioxide 31 H BUN 21 H Creatinine Glucose 175 H POC Glucose 178 H Calcium 8.0 L Ferritin Lactate Dehydrogenase C-Reactive Protein Total Protein 5.4 L Albumin 3.0 L Arterial Blood Glucose Arterial Blood Ionized Calcium SARS-CoV-2 IgG Ab 07/12/20 07/12/20 07/12/20 04:01 05:47 12:09 WBC RBC Hgb Lymph % (Auto) Lymph # (Auto) Seg Neuts % (Manual) Lymphocytes % (Manual) Seg Neutrophils # Seg Neutrophils # Man Lymphocytes # (Manual) D-Dimer ABG pH 7.456 H POC ABG pCO2 POC ABG pO2 ABG pO2 ABG HCO3 ABG O2 Saturation ABG Base Excess ABG Hemoglobin 10.6 L ABG Glucose 177 H Oxyhemoglobin Chloride Carbon Dioxide BUN Creatinine Glucose POC Glucose 185 H 227 H Calcium Ferritin Lactate Dehydrogenase C-Reactive Protein Total Protein Albumin Arterial Blood Glucose 177 H Arterial Blood Ionized Calcium 4.5 L SARS-CoV-2 IgG Ab 07/12/20 07/12/20 07/13/20 17:34 23:57 05:06 WBC RBC Hgb Lymph % (Auto) Lymph # (Auto) Seg Neuts % (Manual) Lymphocytes % (Manual) Seg Neutrophils # Seg Neutrophils # Man Lymphocytes # (Manual) D-Dimer ABG pH POC ABG pCO2 POC ABG pO2 ABG pO2 ABG HCO3 ABG O2 Saturation ABG Base Excess ABG Hemoglobin ABG Glucose Oxyhemoglobin Chloride Carbon Dioxide BUN Creatinine Glucose POC Glucose 202 H 163 H 166 H Calcium Ferritin Lactate Dehydrogenase C-Reactive Protein Total Protein Albumin Arterial Blood Glucose Arterial Blood Ionized Calcium SARS-CoV-2 IgG Ab 07/13/20 07/13/20 07/13/20 07:20 07:20 07:20 WBC 20.5 H RBC Hgb Lymph % (Auto) Lymph # (Auto) Seg Neuts % (Manual) 93.0 H Lymphocytes % (Manual) 3.0 L Seg Neutrophils # Seg Neutrophils # Man 19.1 H Lymphocytes # (Manual) 0.6 L D-Dimer 826.36 H ABG pH POC ABG pCO2 POC ABG pO2 ABG pO2 ABG HCO3 ABG O2 Saturation ABG Base Excess ABG Hemoglobin ABG Glucose Oxyhemoglobin Chloride Carbon Dioxide 31 H BUN 25 H Creatinine Glucose 163 H POC Glucose Calcium 8.1 L Ferritin Lactate Dehydrogenase 512 H C-Reactive Protein 1.80 H Total Protein 5.8 L Albumin 3.2 L Arterial Blood Glucose Arterial Blood Ionized Calcium SARS-CoV-2 IgG Ab 07/13/20 07/13/20 07/13/20 07:20 11:37 17:20 WBC RBC Hgb Lymph % (Auto) Lymph # (Auto) Seg Neuts % (Manual) Lymphocytes % (Manual) Seg Neutrophils # Seg Neutrophils # Man Lymphocytes # (Manual) D-Dimer ABG pH POC ABG pCO2 POC ABG pO2 ABG pO2 ABG HCO3 ABG O2 Saturation ABG Base Excess ABG Hemoglobin ABG Glucose Oxyhemoglobin Chloride Carbon Dioxide BUN Creatinine Glucose POC Glucose 232 H 210 H Calcium Ferritin 219.8 H Lactate Dehydrogenase C-Reactive Protein Total Protein Albumin Arterial Blood Glucose Arterial Blood Ionized Calcium SARS-CoV-2 IgG Ab 07/13/20 07/13/20 07/14/20 23:57 Unknown 05:22 WBC RBC Hgb Lymph % (Auto) Lymph # (Auto) Seg Neuts % (Manual) Lymphocytes % (Manual) Seg Neutrophils # Seg Neutrophils # Man Lymphocytes # (Manual) D-Dimer ABG pH 7.341 L POC ABG pCO2 POC ABG pO2 133.0 H ABG pO2 56.5 L ABG HCO3 29.7 H ABG O2 Saturation 89.3 L ABG Base Excess ABG Hemoglobin 11.0 L ABG Glucose 207 H Oxyhemoglobin 87.7 L Chloride Carbon Dioxide BUN Creatinine Glucose POC Glucose 190 H Calcium Ferritin Lactate Dehydrogenase C-Reactive Protein Total Protein Albumin Arterial Blood Glucose 207 H Arterial Blood Ionized Calcium 4.5 L SARS-CoV-2 IgG Ab 07/14/20 07/14/20 07/14/20 05:54 11:16 17:50 WBC RBC Hgb Lymph % (Auto) Lymph # (Auto) Seg Neuts % (Manual) Lymphocytes % (Manual) Seg Neutrophils # Seg Neutrophils # Man Lymphocytes # (Manual) D-Dimer ABG pH POC ABG pCO2 POC ABG pO2 ABG pO2 ABG HCO3 ABG O2 Saturation ABG Base Excess ABG Hemoglobin ABG Glucose Oxyhemoglobin Chloride Carbon Dioxide BUN Creatinine Glucose POC Glucose 206 H 196 H 205 H Calcium Ferritin Lactate Dehydrogenase C-Reactive Protein Total Protein Albumin Arterial Blood Glucose Arterial Blood Ionized Calcium SARS-CoV-2 IgG Ab 07/14/20 07/15/20 07/15/20 23:28 03:16 06:12 WBC RBC Hgb Lymph % (Auto) Lymph # (Auto) Seg Neuts % (Manual) Lymphocytes % (Manual) Seg Neutrophils # Seg Neutrophils # Man Lymphocytes # (Manual) D-Dimer ABG pH POC ABG pCO2 49.2 H POC ABG pO2 120.3 H ABG pO2 ABG HCO3 ABG O2 Saturation ABG Base Excess ABG Hemoglobin 9.5 L ABG Glucose 148 H Oxyhemoglobin Chloride Carbon Dioxide BUN Creatinine Glucose POC Glucose 160 H 178 H Calcium Ferritin Lactate Dehydrogenase C-Reactive Protein Total Protein Albumin Arterial Blood Glucose 148 H Arterial Blood Ionized Calcium SARS-CoV-2 IgG Ab 07/15/20 07/15/20 07/15/20 09:00 12:32 14:30 WBC RBC Hgb Lymph % (Auto) Lymph # (Auto) Seg Neuts % (Manual) Lymphocytes % (Manual) Seg Neutrophils # Seg Neutrophils # Man Lymphocytes # (Manual) D-Dimer ABG pH POC ABG pCO2 POC ABG pO2 ABG pO2 ABG HCO3 ABG O2 Saturation ABG Base Excess ABG Hemoglobin ABG Glucose Oxyhemoglobin Chloride Carbon Dioxide BUN Creatinine Glucose POC Glucose 173 H Calcium Ferritin Lactate Dehydrogenase 531 H C-Reactive Protein Total Protein Albumin Arterial Blood Glucose Arterial Blood Ionized Calcium SARS-CoV-2 IgG Ab Reactive A 07/15/20 07/15/20 07/16/20 18:24 23:35 04:03 WBC RBC Hgb Lymph % (Auto) Lymph # (Auto) Seg Neuts % (Manual) Lymphocytes % (Manual) Seg Neutrophils # Seg Neutrophils # Man Lymphocytes # (Manual) D-Dimer ABG pH POC ABG pCO2 POC ABG pO2 ABG pO2 72.7 L ABG HCO3 35.5 H ABG O2 Saturation ABG Base Excess 9.4 H ABG Hemoglobin 10.6 L ABG Glucose Oxyhemoglobin 93.6 L Chloride Carbon Dioxide BUN Creatinine Glucose POC Glucose 173 H 181 H Calcium Ferritin Lactate Dehydrogenase C-Reactive Protein Total Protein Albumin Arterial Blood Glucose Arterial Blood Ionized Calcium SARS-CoV-2 IgG Ab 07/16/20 07/16/20 07/16/20 05:35 09:00 09:00 WBC 16.5 H RBC 3.59 L Hgb Lymph % (Auto) Lymph # (Auto) Seg Neuts % (Manual) 96.0 H Lymphocytes % (Manual) 3.0 L Seg Neutrophils # Seg Neutrophils # Man 15.8 H Lymphocytes # (Manual) 0.5 L D-Dimer ABG pH POC ABG pCO2 POC ABG pO2 ABG pO2 ABG HCO3 ABG O2 Saturation ABG Base Excess ABG Hemoglobin ABG Glucose Oxyhemoglobin Chloride Carbon Dioxide 39 H D BUN 25 H Creatinine 0.4 L Glucose 167 H POC Glucose 129 H Calcium 8.3 L Ferritin Lactate Dehydrogenase C-Reactive Protein Total Protein Albumin Arterial Blood Glucose Arterial Blood Ionized Calcium SARS-CoV-2 IgG Ab 07/16/20 07/16/20 07/17/20 12:32 18:28 00:09 WBC RBC Hgb Lymph % (Auto) Lymph # (Auto) Seg Neuts % (Manual) Lymphocytes % (Manual) Seg Neutrophils # Seg Neutrophils # Man Lymphocytes # (Manual) D-Dimer ABG pH POC ABG pCO2 POC ABG pO2 ABG pO2 ABG HCO3 ABG O2 Saturation ABG Base Excess ABG Hemoglobin ABG Glucose Oxyhemoglobin Chloride Carbon Dioxide BUN Creatinine Glucose POC Glucose 187 H 174 H 184 H Calcium Ferritin Lactate Dehydrogenase C-Reactive Protein Total Protein Albumin Arterial Blood Glucose Arterial Blood Ionized Calcium SARS-CoV-2 IgG Ab 07/17/20 07/17/20 07/17/20 04:30 05:47 13:03 WBC RBC Hgb Lymph % (Auto) Lymph # (Auto) Seg Neuts % (Manual) Lymphocytes % (Manual) Seg Neutrophils # Seg Neutrophils # Man Lymphocytes # (Manual) D-Dimer ABG pH POC ABG pCO2 POC ABG pO2 ABG pO2 ABG HCO3 38.1 H ABG O2 Saturation ABG Base Excess 11.3 H ABG Hemoglobin 10.5 L ABG Glucose Oxyhemoglobin Chloride Carbon Dioxide BUN Creatinine Glucose POC Glucose 135 H 210 H Calcium Ferritin Lactate Dehydrogenase C-Reactive Protein Total Protein Albumin Arterial Blood Glucose Arterial Blood Ionized Calcium SARS-CoV-2 IgG Ab Chest x-ray: pending Allied health notes reviewed: nursing
--- NOTE | 2020-07-17 15:51 | Progress Note ---
Assessment and Plan --Acute asthma exacerbation on iv steroid Oxygen supplementation as needed Continue montelukast Monitor oxygen saturations closely -- COVID-19 Tested positive for COVID-19 in [place] iv steroid, s/p Remdesivir for 5 days s/p convalescent plasma transfusion Procalcitonin <0.05 ID on board follow ferritin, ldh, d-dimer levels -- Acute hypoxic respiratory failure Now intubated on 07/09/20 overnight From COVID-19 and asthma exacerbation Continue steroids Continue oxygen supplementation -- GERD (gastroesophageal reflux disease) cont Pantoprazole --SLE (systemic lupus erythematosus related syndrome) Continue home medications-hydroxychloroquine -- DVT prophylaxis Lovenox 30 mg twice daily -- Full code status The high probability of a clinically significant, sudden or life threatening deterioration of the [CVS, respiratory, [employer]SF[employer]ITTER] system(s) required my full and direct attention, intervention and personal management. The aggregate critical care time was [33] minutes. This time is in addition to time spent performing reported procedures but includes the following: [x] Data Review and interpretation [x] Patient assessment and monitoring of vital signs [x] Documentation [x] Medication orders and management brief History: 50-year-old female with a past medical history of asthma, hypertension, and lupus complains of generalized body weakness, fever and shortness of breath. Patient states the symptoms started right after she was discharged from [place] on 07/05. She has associated wheezing, fever, cough and she has been using her inhalers with no significant effect. She also has associated diarrhea. Of note, she was hospitalized here in [facility] on 06/28 for asthma exacerbation and had a negative Covid test during the admission. She was treated and discharged. She presented to [place] for further evaluation after discharge from here and over there, she was found to have positive COVID-19 test and she was placed on steroids and subsequently discharged on Eliquis prophylaxis for DVT. She states that she did not receive remdesivir during the admission. She was discharged from [place] on 07/05. She went home and felt worse. She said that she passed out about 2 times. Due to persistent symptoms, she called EMS who brought her to [facility] for further evaluation. Daily course: 07/07. Patient seen and examined at bedside this morning. Patient is wheezing and slightly short of breath. Change steroids to Solu-Medrol 60 every 6. Added formoterol and budesonide. ID evaluation pending. Started patient on remdesivir as she is short of breath. 07/07: Placed on BIPAP this AM. Will need pulm evaluation. Solumedrol 60mg q6. STAT blood gas ordered. She will be transferred to [facility]. 07/08: Patient took oxygen off and attempts to go to the bathroom and subsequently became hypoxemic with sats down into the low 80s. Patient became weak short of breath. After that time patient had persistent coughing and cannot maintain sats until nonrebreather was placed. Patient is transferred to the ICU unit and monitored for respiratory failure possibly requiring intubation. 07/09: ID recommended for convalescent plasma, ordered. Patient intubated overnight. Continue to monitor clinically, scheduled lab, follow inflammatory markers 07/10: Wait for convalescent plasma transfusion, wean off from ventilator as tolerated 07/11: Called patient's daughter and updated. Continue to wean off vent as tolerated, continue tube feeding, monitor vital sign CBC BMP daily. 07/12: remains intubated and sedated. follow inflammatory markers - wean off vent as tolerated 07/13: wean off vent as tolerated, cxr in the am. reviewed vitals 07/14: remains intubated, has not received convalescent plasma yet. Reviewed vitals, tolerating tube feeding. Wean off vent per critical care as tolerated. 07/15: cont to provide supportive care, wean off vent as tolerated - difficult to wean off. 07/16: CXR findings improving, cont to wean off vent 07/17: Follow inflammatory markers, monitor off antibiotics. Wean off vent per pulmonary as tolerated Subjective Date of service: 07/17/20 Principal diagnosis: Ac hypoxemic resp failure; PNA; COVID-19 infxn; SLE; Asthma exacerbation Interval history: Patient seen and examined Patient remains intubated on mechanical ventilation Discussed with RN at the bedside, on tube feeding Reviewed vitals, Objective - Exam Narrative Exam: GENERAL: well-developed obese -Swiss female lying on bed intubated and sedated HEENT: Normocephalic. Atraumatic. No conjunctival congestion or icterus. Patient has moist mucous membranes. NECK: Supple. Trachea midline. ET tube in place, intubated with mechanical ventilation CHEST/LUNGS: Diffuse expiratory wheezes, coarse breath sound bilaterally HEART/CARDIOVASCULAR: Regular in rate and rhythm. S1 and S2 positive. ABDOMEN: Abdomen is soft, nontender. Patient has normal bowel sounds. SKIN: There is no rash. Warm and dry. NEURO: Sedated MUSCULOSKELETAL: No joint effusion or tenderness. EXTRIMITY: No edema, no cyanosis or clubbing. PSYCH: Unable to assess - Constitutional Vitals: Vital Signs - 12hr 07/17/20 07/17/20 07/17/20 04:00 04:30 05:00 Temperature 98.3 F Pulse Rate 58 L 64 60 Pulse Rate [ Bilateral Throughout] Pulse Rate [ From Monitor] Respiratory 16 13 13 Rate Respiratory Rate [Bilateral Throughout] Respiratory Rate [Chest] Blood Pressure 116/64 134/68 120/65 O2 Sat by Pulse 94 98 95 Oximetry 07/17/20 07/17/20 07/17/20 05:17 05:30 06:00 Temperature Pulse Rate 72 70 83 Pulse Rate [ Bilateral Throughout] Pulse Rate [ From Monitor] Respiratory 20 18 Rate Respiratory Rate [Bilateral Throughout] Respiratory Rate [Chest] Blood Pressure 120/65 134/75 138/61 O2 Sat by Pulse 98 98 98 Oximetry 07/17/20 07/17/20 07/17/20 06:30 07:00 07:30 Temperature Pulse Rate 70 61 64 Pulse Rate [ Bilateral Throughout] Pulse Rate [ From Monitor] Respiratory 15 16 16 Rate Respiratory Rate [Bilateral Throughout] Respiratory Rate [Chest] Blood Pressure 130/67 135/66 127/70 O2 Sat by Pulse 97 100 97 Oximetry 07/17/20 07/17/20 07/17/20 08:00 08:30 08:34 Temperature 98.6 F Pulse Rate 71 75 Pulse Rate [ 86 Bilateral Throughout] Pulse Rate [ 64 From Monitor] Respiratory 15 15 Rate Respiratory 22 Rate [Bilateral Throughout] Respiratory Rate [Chest] Blood Pressure 130/73 143/80 O2 Sat by Pulse 96 98 Oximetry 07/17/20 07/17/20 07/17/20 09:00 09:30 10:00 Temperature Pulse Rate 75 80 83 Pulse Rate [ Bilateral Throughout] Pulse Rate [ From Monitor] Respiratory 13 15 18 Rate Respiratory Rate [Bilateral Throughout] Respiratory 16 Rate [Chest] Blood Pressure 151/77 149/76 131/70 O2 Sat by Pulse 92 94 95 Oximetry 07/17/20 07/17/20 07/17/20 10:30 11:00 11:16 Temperature Pulse Rate 75 64 63 Pulse Rate [ Bilateral Throughout] Pulse Rate [ From Monitor] Respiratory 15 16 Rate Respiratory Rate [Bilateral Throughout] Respiratory Rate [Chest] Blood Pressure 111/56 100/48 100/48 O2 Sat by Pulse 92 93 96 Oximetry 07/17/20 07/17/20 07/17/20 11:30 11:43 12:00 Temperature 97.8 F Pulse Rate 68 51 L Pulse Rate [ Bilateral Throughout] Pulse Rate [ 65 From Monitor] Respiratory 13 16 17 Rate Respiratory Rate [Bilateral Throughout] Respiratory Rate [Chest] Blood Pressure 104/47 92/41 O2 Sat by Pulse 91 94 98 Oximetry 07/17/20 07/17/20 07/17/20 12:30 13:00 13:30 Temperature Pulse Rate 59 L 62 54 L Pulse Rate [ Bilateral Throughout] Pulse Rate [ From Monitor] Respiratory 15 16 16 Rate Respiratory Rate [Bilateral Throughout] Respiratory Rate [Chest] Blood Pressure 92/46 100/47 102/45 O2 Sat by Pulse 93 92 97 Oximetry 07/17/20 07/17/20 07/17/20 13:40 13:42 14:00 Temperature Pulse Rate 58 L 62 Pulse Rate [ 59 L Bilateral Throughout] Pulse Rate [ From Monitor] Respiratory 15 Rate Respiratory 16 Rate [Bilateral Throughout] Respiratory Rate [Chest] Blood Pressure 102/45 97/46 O2 Sat by Pulse 96 91 Oximetry - Labs CBC & Chem 7: 07/19/20 08:30 07/19/20 08:30 Labs: Abnormal lab results 07/16/20 07/17/20 07/17/20 Range/Units 18:28 00:09 04:30 ABG HCO3 38.1 H (20.0-26.0) mmol/L ABG Base Excess 11.3 H (-2.0-3.0) mmol/L ABG Hemoglobin 10.5 L (12.0-16.0) gm/dl POC Glucose 174 H 184 H (70-105) mg/dL 07/17/20 07/17/20 Range/Units 05:47 13:03 ABG HCO3 (20.0-26.0) mmol/L ABG Base Excess (-2.0-3.0) mmol/L ABG Hemoglobin (12.0-16.0) gm/dl POC Glucose 135 H 210 H (70-105) mg/dL
[2020-07-17] MEDS: INSULIN GLARGINE 100 UNITS/ML SUB-Q SCH (16:39)
[2020-07-17] MEDS: POLYETHYLENE GLYCOL 3350 17 GM POWDER PO SCH (21:00)
[2020-07-18] MEDS: ASCORBIC ACID 500 MG TAB PO SCH ×2 (00:06→10:12)
[2020-07-18] MEDS: methylPREDNISolone Sod Succinate 125 MG/2 ML INJ IV SCH ×4 (00:06→17:36)
[2020-07-18] MEDS: INSULIN REGULAR, HUMAN 100 UNIT/ML 3ML VIAL SUB-Q SCH ×4 (00:08→17:35)
[2020-07-18] MEDS: fentaNYL DRIP Premix 2,000 MCG/100 ML BAG IV SCH ×5 (01:58→22:14)
[2020-07-18] MEDS: ARFORMOTEROL 15 MCG/2 ML NEBU IH SCH ×2 (08:39→19:24)
[2020-07-18] MEDS: BUDESONIDE 0.5 MG/2 ML NEBU IH SCH ×2 (08:39→19:24)
[2020-07-18] MEDS: ALBUTEROL 2.5 MG/3 ML NEBU IH SCH ×3 (08:39→19:24)
[2020-07-18] MEDS: VENLAFAXINE 37.5 MG TAB PO SCH (10:11)
[2020-07-18] MEDS: DOCUSATE SODIUM 100 MG/10 ML ORAL LIQD PO SCH (10:11)
[2020-07-18] MEDS: ASPIRIN 81 MG TAB CHEW PO SCH (10:12)
[2020-07-18] MEDS: LANSOPRAZOLE 30 MG SOLUTAB FEEDTUBE SCH (10:12)
[2020-07-18] MEDS: HYDROXYCHLOROQUINE 200 MG TAB PO SCH (10:12)
[2020-07-18] MEDS: ZINC SULFATE 220 MG CAP PO SCH (10:12)
[2020-07-18] MEDS: ENOXAPARIN 30 MG/0.3 ML INJ SUB-Q SCH (10:12)
[2020-07-18] MEDS: QUEtiapine 200 MG TAB PO SCH (10:12)
--- NOTE | 2020-07-18 11:43 | Progress Note ---
Assessment and Plan Cultures: Blood cultures 07/07/2020 no growth today SARS COV2- IgG negative Sputum culture 07/08/2020 usual respiratory [place] Blood culture 07/11/2020 no growth today MRSA nasal culture: Negative Tracheal aspirate 07/12/2020: Usual respiratory ker[place] A/P: 50-year-old female with CHF, asthma, hypertension, lupus was admitted to the hospital with complaints of fever, shortness of breath. Of note, she was seen last week due to an asthma exacerbation when her SARS-CoV-2 PCR and IgG were both negative. She was treated with steroids. She reportedly then went to [place] and tested positive for COVID-19 and was discharged from the hospital on 07/05/2020 readmitted here with: #Critical COVID pneumonia (was diagnosed at [place] and discharged): completed Remdesivir. Remains on steroids per pulm. S/P CCP. #Acute asthma exacerbation: on nebs and steroids. #Acute hypoxic respiratory failure: Remains intubated #Lupus, immunocompromised host: On Plaquenil. Recs: On steroids, wean per pulmonary/ICU prophylactic anticoagulation based on d-dimer trend ferritin, LDH, d-dimer, CRP every 2-3 days Leucocytosis is likely due to steroids remains off antibiotics Marquez Aponte MD, FACP [facility] O: [phone] F: [phone] Subjective Date of service: 07/18/20 Principal diagnosis: Ac hypoxemic resp failure; PNA; COVID-19 infxn; SLE; Asthma exacerbation Interval history: Afebrile. Remains on the vent. Objective - Exam Narrative Exam: Physical Exam (reviewed in chart due to PPE conservation and minimize risk of transmission) Constitutional: limited due to PPE conservation strategy Head, Ears, Nose: limited due to PPE conservation strategy Eyes: limited due to PPE conservation strategy Neck: limited due to PPE conservation strategy Oral: limited due to PPE conservation strategy Cardiovascular: limited due to PPE conservation strategy Respiratory: limited due to PPE conservation strategy GI: limited due to PPE conservation strategy Musculoskeletal: limited due to PPE conservation strategy Skin: limited due to PPE conservation strategy Hem/Lymphatic: limited due to PPE conservation strategy Psych: limited due to PPE conservation strategy Neurological: limited due to PPE conservation strategy - Constitutional Vitals: Vital Signs Temp Pulse Resp BP Pulse Ox 98.6 F 75 17 118/67 93 07/18/20 08:00 07/18/20 09:31 07/18/20 09:31 07/18/20 09:00 07/18/20 09:00 Temperature -Last 24 Hours Temperature 98.6 F Temperature 98.1 F Temperature 98.3 F Temperature 98.7 F Temperature 98.5 F Temperature 97.8 F - Labs CBC & Chem 7: 07/16/20 09:00 07/16/20 09:00 Labs: Abnormal lab results 07/17/20 07/17/20 07/17/20 Range/Units 13:03 16:50 23:39 POC ABG pCO2 (32.0-48.0) mmHg POC ABG pO2 (83-108) mmHg ABG Hemoglobin (12.0-17.5) ABG Sodium (136.0-145.0) mmol/L ABG Potassium (3.40-4.50) mmol/L ABG Chloride (98-107) mmol/L ABG Glucose (65-95) mg/dL POC Glucose 210 H 193 H 163 H (70-105) mg/dL Arterial Blood Glucose (65-95) mg/dL 07/18/20 07/18/20 Range/Units 04:01 05:41 POC ABG pCO2 56.8 H (32.0-48.0) mmHg POC ABG pO2 61.9 L (83-108) mmHg ABG Hemoglobin 11.7 L (12.0-17.5) ABG Sodium 134.2 L (136.0-145.0) mmol/L ABG Potassium 4.7 H (3.40-4.50) mmol/L ABG Chloride 97.0 L (98-107) mmol/L ABG Glucose 173 H (65-95) mg/dL POC Glucose 153 H (70-105) mg/dL Arterial Blood Glucose 173 H (65-95) mg/dL
--- NOTE | 2020-07-18 14:12 | Progress Note ---
Assessment and Plan Acute hypoxemic respiratory failure, now on MVS Bilateral pneumonia, left greater than right lungs. COVID-19 infection. History of congestive heart failure. History of lupus erythematosus. Leukocytosis. Tobacco use disorder. Acute asthma exacerbation. History of hypertension. Obesity - get 2D ECHO re: EF - consider gentle diuresis - trend WBC / follow clinically - slow systemic steroids taper - keep peep at 12 for now - continue to wean supplemental oxygen for target O2 sat's > 92% - no new issues otherwise, continue care as below; - continue Lantus 5 units SQ q24h - continue low dose SSI - continue Seroquel 200 mg p.o. bid - continue airborne and contact isolation - follow repeat COVID-19 testing - continue Zinc & Vit C supplementaion - complete Remdesivir - empiric AB's coverage per ID rec's otherwise - continue systemic steroids for Asthma / severe COVID infection - continue Daily SAT and SBT assessment as tolerated - VAP bundle addressed - continue lung protective strategies - continue bronchodilators with pulmonary hygiene per RT - wean per pulmonary driven protocols otherwise - accuchecks with glycemic control per SSI (While critically ill target blood glucose of 140-180 mg/dL; avoid hypoglycemia) - sedation prn for target RASS -1 to -2 - avoid nephrotoxins, renally dose all medications - continue to avoid benzodiazepine's, reduce the possibility of delirium - prn analgesia per CPOT score - Maintenance of sleep-wake cycle, avoid delirium - continue enteral nutritional support at goal rate as tolerated - G.I. & VTE prophylaxis - PT/OT/ROM exercises - continue mobility protocols for pressure ulcer prophylaxis - Monitor hemodynamics closely - continue other care per attending / other consultants - discharge planning ongoing concurrently .... Re-evaluate in am & prn CONDITION: CRITICAL PROGNOSIS: GUARDED CODE STATUS: FULL CODE The high probability of a clinically significant, sudden or life-threatening deterioration of the [respiratory, cardiovascular & neurologic] system(s) required my full and direct attention, intervention and personal management. The aggregate critical care time was [35] minutes without overlap. Time includes spent on; [x] Data Review and interpretation [x] Patient assessment and monitoring of vital signs [x] Documentation [x] Medication orders and management Subjective Date of service: 07/18/20 Principal diagnosis: Ac hypoxemic resp failure; PNA; COVID-19 infxn; SLE; Asthma exacerbation Interval history: Patient is seen today for: Acute hypoxemic respiratory failure; Bilateral pneumonia; COVID-19 infection; H/O CHF; SLE; Acute asthma exacerbation. HTN; Obesity Seen and examined at bedside; 24hour events reviewed; nursing and respiratory care staff consulted; no adverse overnight events reported to me; resting peacefully in bed; remains on MVS; oxygenation remains labile; No N/V/F/C Objective Vital Signs - 12hr 07/18/20 07/18/20 07/18/20 02:30 03:00 03:30 Temperature Pulse Rate 64 76 66 Pulse Rate [ Bilateral Throughout] Pulse Rate [ From Monitor] Respiratory 16 22 15 Rate Respiratory Rate [Bilateral Throughout] Blood Pressure 89/47 105/55 105/60 O2 Sat by Pulse 90 93 89 Oximetry 07/18/20 07/18/20 07/18/20 03:54 04:00 04:30 Temperature 98.1 F Pulse Rate 78 74 87 Pulse Rate [ Bilateral Throughout] Pulse Rate [ 85 From Monitor] Respiratory 17 14 Rate Respiratory Rate [Bilateral Throughout] Blood Pressure 105/60 116/68 105/60 O2 Sat by Pulse 92 92 92 Oximetry 07/18/20 07/18/20 07/18/20 05:00 05:30 06:00 Temperature Pulse Rate 78 94 H 70 Pulse Rate [ Bilateral Throughout] Pulse Rate [ From Monitor] Respiratory 17 21 17 Rate Respiratory Rate [Bilateral Throughout] Blood Pressure 104/64 117/73 117/67 O2 Sat by Pulse 89 93 89 Oximetry 07/18/20 07/18/20 07/18/20 06:30 07:00 07:30 Temperature Pulse Rate 87 82 79 Pulse Rate [ Bilateral Throughout] Pulse Rate [ From Monitor] Respiratory 21 15 16 Rate Respiratory Rate [Bilateral Throughout] Blood Pressure 111/72 121/82 130/75 O2 Sat by Pulse 89 90 91 Oximetry 07/18/20 07/18/20 07/18/20 08:00 08:30 08:36 Temperature 98.6 F Pulse Rate 68 73 73 Pulse Rate [ Bilateral Throughout] Pulse Rate [ 74 From Monitor] Respiratory 20 17 Rate Respiratory Rate [Bilateral Throughout] Blood Pressure 116/71 126/71 126/71 O2 Sat by Pulse 90 94 90 Oximetry 07/18/20 07/18/20 07/18/20 09:00 09:31 11:51 Temperature Pulse Rate 72 81 Pulse Rate [ 75 Bilateral Throughout] Pulse Rate [ From Monitor] Respiratory 18 Rate Respiratory 17 Rate [Bilateral Throughout] Blood Pressure 118/67 117/64 O2 Sat by Pulse 93 90 Oximetry 07/18/20 12:00 Temperature 99.2 F Pulse Rate Pulse Rate [ Bilateral Throughout] Pulse Rate [ From Monitor] Respiratory Rate Respiratory Rate [Bilateral Throughout] Blood Pressure O2 Sat by Pulse Oximetry Constitutional: no acute distress, other (middle aged obese female with mildly increased respiratory effort at rest on MVS) Eyes: non-icteric ENT: oropharynx moist, other (ETT 24 cm YANET) Neck: supple, no lymphadenopathy, no JVD Effort: mildly labored Ascultation: Bilateral: diminished breath sounds, rhonchi (scant ) Percussion: Bilateral: not dull Cardiovascular: regular rate and rhythm Gastrointestinal: normoactive bowel sounds, soft, non-tender, non-distended Integumentary: normal Extremities: no cyanosis, no edema, pulses normal, no ischemia or petechiae Neurologic: normal mental status, non-focal exam, pupils equal and round, motor strength normal and Psychiatric: mood appropriate, affect normal CBC and BMP: 07/19/20 08:30 07/19/20 08:30 ABG, PT/INR, D-dimer: ABG ABG pH 7.413 (7.320-7.450) 07/18/20 04:01 POC ABG pCO2 56.8 mmHg (32.0-48.0) H 07/18/20 04:01 ABG pCO2 62.9 mm Hg 07/17/20 04:30 POC ABG pO2 61.9 mmHg (83-108) L 07/18/20 04:01 ABG pO2 83.1 mm Hg (80.0-90.0) 07/17/20 04:30 POC ABG HCO3 35.4 07/18/20 04:01 ABG O2 Saturation 96.7 % (95.0-99.0) 07/17/20 04:30 PT/INR, D-dimer D-Dimer 826.36 ng/mlDDU (0-234) H 07/13/20 07:20 Abnormal lab findings: Abnormal Labs 07/06/20 07/06/20 07/07/20 05:24 17:16 04:50 WBC 13.5 H 12.7 H RBC Hgb Lymph % (Auto) Lymph # (Auto) Seg Neuts % (Manual) 86.0 H 87.0 H Lymphocytes % (Manual) 6.0 L 9.0 L Seg Neutrophils # Seg Neutrophils # Man 11.6 H 11.0 H Lymphocytes # (Manual) 0.8 L 1.1 L D-Dimer ABG pH POC ABG pCO2 POC ABG pO2 ABG pO2 ABG HCO3 ABG O2 Saturation ABG Base Excess ABG Hemoglobin ABG Sodium ABG Potassium ABG Chloride ABG Glucose Oxyhemoglobin Chloride Carbon Dioxide BUN Creatinine Glucose POC Glucose Calcium Ferritin Lactate Dehydrogenase 242 H C-Reactive Protein 7.30 H Total Protein Albumin Arterial Blood Glucose Arterial Blood Ionized Calcium SARS-CoV-2 IgG Ab 07/07/20 07/07/20 07/07/20 04:50 14:22 14:22 WBC RBC Hgb Lymph % (Auto) Lymph # (Auto) Seg Neuts % (Manual) Lymphocytes % (Manual) Seg Neutrophils # Seg Neutrophils # Man Lymphocytes # (Manual) D-Dimer ABG pH POC ABG pCO2 POC ABG pO2 ABG pO2 ABG HCO3 ABG O2 Saturation ABG Base Excess ABG Hemoglobin ABG Sodium ABG Potassium ABG Chloride ABG Glucose Oxyhemoglobin Chloride Carbon Dioxide BUN 18 H Creatinine Glucose 138 H POC Glucose Calcium Ferritin 228.2 H Lactate Dehydrogenase 277 H C-Reactive Protein Total Protein 5.9 L Albumin 3.4 L Arterial Blood Glucose Arterial Blood Ionized Calcium SARS-CoV-2 IgG Ab 07/08/20 07/08/20 07/08/20 11:18 12:57 16:13 WBC RBC Hgb Lymph % (Auto) Lymph # (Auto) Seg Neuts % (Manual) Lymphocytes % (Manual) Seg Neutrophils # Seg Neutrophils # Man Lymphocytes # (Manual) D-Dimer ABG pH POC ABG pCO2 POC ABG pO2 ABG pO2 39.3 L* ABG HCO3 ABG O2 Saturation 76.8 L ABG Base Excess ABG Hemoglobin ABG Sodium ABG Potassium ABG Chloride ABG Glucose Oxyhemoglobin 75.3 L Chloride Carbon Dioxide 20 L D BUN Creatinine Glucose 135 H POC Glucose 106 H Calcium 8.0 L Ferritin Lactate Dehydrogenase C-Reactive Protein Total Protein Albumin Arterial Blood Glucose Arterial Blood Ionized Calcium SARS-CoV-2 IgG Ab 07/08/20 07/08/20 07/09/20 17:04 18:45 04:00 WBC 15.6 H RBC Hgb Lymph % (Auto) 4.7 L Lymph # (Auto) 0.7 L Seg Neuts % (Manual) Lymphocytes % (Manual) Seg Neutrophils # 14.2 H Seg Neutrophils # Man Lymphocytes # (Manual) D-Dimer ABG pH POC ABG pCO2 POC ABG pO2 ABG pO2 181.8 H ABG HCO3 ABG O2 Saturation 99.1 H ABG Base Excess ABG Hemoglobin 11.4 L ABG Sodium ABG Potassium ABG Chloride ABG Glucose Oxyhemoglobin Chloride Carbon Dioxide BUN Creatinine Glucose POC Glucose 117 H Calcium Ferritin Lactate Dehydrogenase C-Reactive Protein Total Protein Albumin Arterial Blood Glucose Arterial Blood Ionized Calcium SARS-CoV-2 IgG Ab 07/09/20 07/09/20 07/09/20 04:00 04:00 04:49 WBC RBC Hgb Lymph % (Auto) Lymph # (Auto) Seg Neuts % (Manual) Lymphocytes % (Manual) Seg Neutrophils # Seg Neutrophils # Man Lymphocytes # (Manual) D-Dimer ABG pH POC ABG pCO2 POC ABG pO2 ABG pO2 ABG HCO3 26.2 H ABG O2 Saturation ABG Base Excess ABG Hemoglobin 11.2 L ABG Sodium ABG Potassium ABG Chloride ABG Glucose Oxyhemoglobin 94.9 L Chloride Carbon Dioxide BUN Creatinine Glucose 158 H POC Glucose Calcium 8.2 L Ferritin 320.0 H Lactate Dehydrogenase 391 H C-Reactive Protein 9.50 H Total Protein 5.9 L Albumin 3.2 L Arterial Blood Glucose Arterial Blood Ionized Calcium SARS-CoV-2 IgG Ab 07/09/20 07/09/20 07/09/20 11:56 17:49 23:39 WBC RBC Hgb Lymph % (Auto) Lymph # (Auto) Seg Neuts % (Manual) Lymphocytes % (Manual) Seg Neutrophils # Seg Neutrophils # Man Lymphocytes # (Manual) D-Dimer ABG pH POC ABG pCO2 POC ABG pO2 ABG pO2 ABG HCO3 ABG O2 Saturation ABG Base Excess ABG Hemoglobin ABG Sodium ABG Potassium ABG Chloride ABG Glucose Oxyhemoglobin Chloride Carbon Dioxide BUN Creatinine Glucose POC Glucose 156 H 119 H 145 H Calcium Ferritin Lactate Dehydrogenase C-Reactive Protein Total Protein Albumin Arterial Blood Glucose Arterial Blood Ionized Calcium SARS-CoV-2 IgG Ab 07/10/20 07/10/20 07/10/20 03:32 05:26 11:22 WBC RBC Hgb Lymph % (Auto) Lymph # (Auto) Seg Neuts % (Manual) Lymphocytes % (Manual) Seg Neutrophils # Seg Neutrophils # Man Lymphocytes # (Manual) D-Dimer ABG pH POC ABG pCO2 POC ABG pO2 ABG pO2 75.7 L ABG HCO3 27.5 H ABG O2 Saturation ABG Base Excess ABG Hemoglobin 9.3 L ABG Sodium ABG Potassium ABG Chloride ABG Glucose Oxyhemoglobin 94.7 L Chloride Carbon Dioxide BUN Creatinine Glucose POC Glucose 156 H 148 H Calcium Ferritin Lactate Dehydrogenase C-Reactive Protein Total Protein Albumin Arterial Blood Glucose Arterial Blood Ionized Calcium SARS-CoV-2 IgG Ab 07/10/20 07/10/20 07/10/20 12:10 12:10 18:20 WBC 14.1 H RBC 3.33 L Hgb 9.9 L Lymph % (Auto) Lymph # (Auto) Seg Neuts % (Manual) 89.0 H Lymphocytes % (Manual) 8.0 L Seg Neutrophils # Seg Neutrophils # Man 12.5 H Lymphocytes # (Manual) 1.1 L D-Dimer ABG pH POC ABG pCO2 POC ABG pO2 ABG pO2 ABG HCO3 ABG O2 Saturation ABG Base Excess ABG Hemoglobin ABG Sodium ABG Potassium ABG Chloride ABG Glucose Oxyhemoglobin Chloride Carbon Dioxide BUN 21 H Creatinine Glucose 154 H POC Glucose 181 H Calcium 8.0 L Ferritin Lactate Dehydrogenase C-Reactive Protein Total Protein 5.4 L Albumin 3.0 L Arterial Blood Glucose Arterial Blood Ionized Calcium SARS-CoV-2 IgG Ab 07/10/20 07/11/20 07/11/20 23:51 04:05 05:43 WBC RBC Hgb Lymph % (Auto) Lymph # (Auto) Seg Neuts % (Manual) Lymphocytes % (Manual) Seg Neutrophils # Seg Neutrophils # Man Lymphocytes # (Manual) D-Dimer ABG pH 7.348 L POC ABG pCO2 POC ABG pO2 ABG pO2 93.6 H ABG HCO3 28.5 H ABG O2 Saturation ABG Base Excess ABG Hemoglobin 10.1 L ABG Sodium ABG Potassium ABG Chloride ABG Glucose Oxyhemoglobin Chloride Carbon Dioxide BUN Creatinine Glucose POC Glucose 116 H 132 H Calcium Ferritin Lactate Dehydrogenase C-Reactive Protein Total Protein Albumin Arterial Blood Glucose Arterial Blood Ionized Calcium SARS-CoV-2 IgG Ab 07/11/20 07/11/20 07/11/20 09:11 09:11 09:11 WBC 15.8 H RBC 3.44 L Hgb Lymph % (Auto) Lymph # (Auto) Seg Neuts % (Manual) 92.0 H Lymphocytes % (Manual) 4.0 L Seg Neutrophils # Seg Neutrophils # Man 14.5 H Lymphocytes # (Manual) 0.6 L D-Dimer 360.61 H ABG pH POC ABG pCO2 POC ABG pO2 ABG pO2 ABG HCO3 ABG O2 Saturation ABG Base Excess ABG Hemoglobin ABG Sodium ABG Potassium ABG Chloride ABG Glucose Oxyhemoglobin Chloride 107.1 H Carbon Dioxide BUN 22 H Creatinine Glucose 149 H POC Glucose Calcium 7.8 L Ferritin Lactate Dehydrogenase 483 H C-Reactive Protein 2.30 H Total Protein 4.9 L Albumin 3.0 L Arterial Blood Glucose Arterial Blood Ionized Calcium SARS-CoV-2 IgG Ab 07/11/20 07/11/20 07/11/20 09:11 12:16 17:55 WBC RBC Hgb Lymph % (Auto) Lymph # (Auto) Seg Neuts % (Manual) Lymphocytes % (Manual) Seg Neutrophils # Seg Neutrophils # Man Lymphocytes # (Manual) D-Dimer ABG pH POC ABG pCO2 POC ABG pO2 ABG pO2 ABG HCO3 ABG O2 Saturation ABG Base Excess ABG Hemoglobin ABG Sodium ABG Potassium ABG Chloride ABG Glucose Oxyhemoglobin Chloride Carbon Dioxide BUN Creatinine Glucose POC Glucose 157 H 166 H Calcium Ferritin 371.2 H Lactate Dehydrogenase C-Reactive Protein Total Protein Albumin Arterial Blood Glucose Arterial Blood Ionized Calcium SARS-CoV-2 IgG Ab 07/12/20 07/12/20 07/12/20 00:32 04:00 04:00 WBC RBC 3.52 L Hgb Lymph % (Auto) Lymph # (Auto) Seg Neuts % (Manual) 90.0 H Lymphocytes % (Manual) 4.0 L Seg Neutrophils # Seg Neutrophils # Man 9.5 H Lymphocytes # (Manual) 0.4 L D-Dimer ABG pH POC ABG pCO2 POC ABG pO2 ABG pO2 ABG HCO3 ABG O2 Saturation ABG Base Excess ABG Hemoglobin ABG Sodium ABG Potassium ABG Chloride ABG Glucose Oxyhemoglobin Chloride Carbon Dioxide 31 H BUN 21 H Creatinine Glucose 175 H POC Glucose 178 H Calcium 8.0 L Ferritin Lactate Dehydrogenase C-Reactive Protein Total Protein 5.4 L Albumin 3.0 L Arterial Blood Glucose Arterial Blood Ionized Calcium SARS-CoV-2 IgG Ab 07/12/20 07/12/20 07/12/20 04:01 05:47 12:09 WBC RBC Hgb Lymph % (Auto) Lymph # (Auto) Seg Neuts % (Manual) Lymphocytes % (Manual) Seg Neutrophils # Seg Neutrophils # Man Lymphocytes # (Manual) D-Dimer ABG pH 7.456 H POC ABG pCO2 POC ABG pO2 ABG pO2 ABG HCO3 ABG O2 Saturation ABG Base Excess ABG Hemoglobin 10.6 L ABG Sodium ABG Potassium ABG Chloride ABG Glucose 177 H Oxyhemoglobin Chloride Carbon Dioxide BUN Creatinine Glucose POC Glucose 185 H 227 H Calcium Ferritin Lactate Dehydrogenase C-Reactive Protein Total Protein Albumin Arterial Blood Glucose 177 H Arterial Blood Ionized Calcium 4.5 L SARS-CoV-2 IgG Ab 07/12/20 07/12/20 07/13/20 17:34 23:57 05:06 WBC RBC Hgb Lymph % (Auto) Lymph # (Auto) Seg Neuts % (Manual) Lymphocytes % (Manual) Seg Neutrophils # Seg Neutrophils # Man Lymphocytes # (Manual) D-Dimer ABG pH POC ABG pCO2 POC ABG pO2 ABG pO2 ABG HCO3 ABG O2 Saturation ABG Base Excess ABG Hemoglobin ABG Sodium ABG Potassium ABG Chloride ABG Glucose Oxyhemoglobin Chloride Carbon Dioxide BUN Creatinine Glucose POC Glucose 202 H 163 H 166 H Calcium Ferritin Lactate Dehydrogenase C-Reactive Protein Total Protein Albumin Arterial Blood Glucose Arterial Blood Ionized Calcium SARS-CoV-2 IgG Ab 07/13/20 07/13/20 07/13/20 07:20 07:20 07:20 WBC 20.5 H RBC Hgb Lymph % (Auto) Lymph # (Auto) Seg Neuts % (Manual) 93.0 H Lymphocytes % (Manual) 3.0 L Seg Neutrophils # Seg Neutrophils # Man 19.1 H Lymphocytes # (Manual) 0.6 L D-Dimer 826.36 H ABG pH POC ABG pCO2 POC ABG pO2 ABG pO2 ABG HCO3 ABG O2 Saturation ABG Base Excess ABG Hemoglobin ABG Sodium ABG Potassium ABG Chloride ABG Glucose Oxyhemoglobin Chloride Carbon Dioxide 31 H BUN 25 H Creatinine Glucose 163 H POC Glucose Calcium 8.1 L Ferritin Lactate Dehydrogenase 512 H C-Reactive Protein 1.80 H Total Protein 5.8 L Albumin 3.2 L Arterial Blood Glucose Arterial Blood Ionized Calcium SARS-CoV-2 IgG Ab 1107/13/20 07/13/20 07:20 11:37 17:20 WBC RBC Hgb Lymph % (Auto) Lymph # (Auto) Seg Neuts % (Manual) Lymphocytes % (Manual) Seg Neutrophils # Seg Neutrophils # Man Lymphocytes # (Manual) D-Dimer ABG pH POC ABG pCO2 POC ABG pO2 ABG pO2 ABG HCO3 ABG O2 Saturation ABG Base Excess ABG Hemoglobin ABG Sodium ABG Potassium ABG Chloride ABG Glucose Oxyhemoglobin Chloride Carbon Dioxide BUN Creatinine Glucose POC Glucose 232 H 210 H Calcium Ferritin 219.8 H Lactate Dehydrogenase C-Reactive Protein Total Protein Albumin Arterial Blood Glucose Arterial Blood Ionized Calcium SARS-CoV-2 IgG Ab 07/13/20 07/13/20 07/14/20 23:57 Unknown 05:22 WBC RBC Hgb Lymph % (Auto) Lymph # (Auto) Seg Neuts % (Manual) Lymphocytes % (Manual) Seg Neutrophils # Seg Neutrophils # Man Lymphocytes # (Manual) D-Dimer ABG pH 7.341 L POC ABG pCO2 POC ABG pO2 133.0 H ABG pO2 56.5 L ABG HCO3 29.7 H ABG O2 Saturation 89.3 L ABG Base Excess ABG Hemoglobin 11.0 L ABG Sodium ABG Potassium ABG Chloride ABG Glucose 207 H Oxyhemoglobin 87.7 L Chloride Carbon Dioxide BUN Creatinine Glucose POC Glucose 190 H Calcium Ferritin Lactate Dehydrogenase C-Reactive Protein Total Protein Albumin Arterial Blood Glucose 207 H Arterial Blood Ionized Calcium 4.5 L SARS-CoV-2 IgG Ab 07/14/20 07/14/20 07/14/20 05:54 11:16 17:50 WBC RBC Hgb Lymph % (Auto) Lymph # (Auto) Seg Neuts % (Manual) Lymphocytes % (Manual) Seg Neutrophils # Seg Neutrophils # Man Lymphocytes # (Manual) D-Dimer ABG pH POC ABG pCO2 POC ABG pO2 ABG pO2 ABG HCO3 ABG O2 Saturation ABG Base Excess ABG Hemoglobin ABG Sodium ABG Potassium ABG Chloride ABG Glucose Oxyhemoglobin Chloride Carbon Dioxide BUN Creatinine Glucose POC Glucose 206 H 196 H 205 H Calcium Ferritin Lactate Dehydrogenase C-Reactive Protein Total Protein Albumin Arterial Blood Glucose Arterial Blood Ionized Calcium SARS-CoV-2 IgG Ab 07/14/20 07/15/20 07/15/20 23:28 03:16 06:12 WBC RBC Hgb Lymph % (Auto) Lymph # (Auto) Seg Neuts % (Manual) Lymphocytes % (Manual) Seg Neutrophils # Seg Neutrophils # Man Lymphocytes # (Manual) D-Dimer ABG pH POC ABG pCO2 49.2 H POC ABG pO2 120.3 H ABG pO2 ABG HCO3 ABG O2 Saturation ABG Base Excess ABG Hemoglobin 9.5 L ABG Sodium ABG Potassium ABG Chloride ABG Glucose 148 H Oxyhemoglobin Chloride Carbon Dioxide BUN Creatinine Glucose POC Glucose 160 H 178 H Calcium Ferritin Lactate Dehydrogenase C-Reactive Protein Total Protein Albumin Arterial Blood Glucose 148 H Arterial Blood Ionized Calcium SARS-CoV-2 IgG Ab 07/15/20 07/15/20 07/15/20 09:00 12:32 14:30 WBC RBC Hgb Lymph % (Auto) Lymph # (Auto) Seg Neuts % (Manual) Lymphocytes % (Manual) Seg Neutrophils # Seg Neutrophils # Man Lymphocytes # (Manual) D-Dimer ABG pH POC ABG pCO2 POC ABG pO2 ABG pO2 ABG HCO3 ABG O2 Saturation ABG Base Excess ABG Hemoglobin ABG Sodium ABG Potassium ABG Chloride ABG Glucose Oxyhemoglobin Chloride Carbon Dioxide BUN Creatinine Glucose POC Glucose 173 H Calcium Ferritin Lactate Dehydrogenase 531 H C-Reactive Protein Total Protein Albumin Arterial Blood Glucose Arterial Blood Ionized Calcium SARS-CoV-2 IgG Ab Reactive A 07/15/20 07/15/20 07/16/20 18:24 23:35 04:03 WBC RBC Hgb Lymph % (Auto) Lymph # (Auto) Seg Neuts % (Manual) Lymphocytes % (Manual) Seg Neutrophils # Seg Neutrophils # Man Lymphocytes # (Manual) D-Dimer ABG pH POC ABG pCO2 POC ABG pO2 ABG pO2 72.7 L ABG HCO3 35.5 H ABG O2 Saturation ABG Base Excess 9.4 H ABG Hemoglobin 10.6 L ABG Sodium ABG Potassium ABG Chloride ABG Glucose Oxyhemoglobin 93.6 L Chloride Carbon Dioxide BUN Creatinine Glucose POC Glucose 173 H 181 H Calcium Ferritin Lactate Dehydrogenase C-Reactive Protein Total Protein Albumin Arterial Blood Glucose Arterial Blood Ionized Calcium SARS-CoV-2 IgG Ab 07/16/20 07/16/20 07/16/20 05:35 09:00 09:00 WBC 16.5 H RBC 3.59 L Hgb Lymph % (Auto) Lymph # (Auto) Seg Neuts % (Manual) 96.0 H Lymphocytes % (Manual) 3.0 L Seg Neutrophils # Seg Neutrophils # Man 15.8 H Lymphocytes # (Manual) 0.5 L D-Dimer ABG pH POC ABG pCO2 POC ABG pO2 ABG pO2 ABG HCO3 ABG O2 Saturation ABG Base Excess ABG Hemoglobin ABG Sodium ABG Potassium ABG Chloride ABG Glucose Oxyhemoglobin Chloride Carbon Dioxide 39 H D BUN 25 H Creatinine 0.4 L Glucose 167 H POC Glucose 129 H Calcium 8.3 L Ferritin Lactate Dehydrogenase C-Reactive Protein Total Protein Albumin Arterial Blood Glucose Arterial Blood Ionized Calcium SARS-CoV-2 IgG Ab 07/16/20 07/16/20 07/17/20 12:32 18:28 00:09 WBC RBC Hgb Lymph % (Auto) Lymph # (Auto) Seg Neuts % (Manual) Lymphocytes % (Manual) Seg Neutrophils # Seg Neutrophils # Man Lymphocytes # (Manual) D-Dimer ABG pH POC ABG pCO2 POC ABG pO2 ABG pO2 ABG HCO3 ABG O2 Saturation ABG Base Excess ABG Hemoglobin ABG Sodium ABG Potassium ABG Chloride ABG Glucose Oxyhemoglobin Chloride Carbon Dioxide BUN Creatinine Glucose POC Glucose 187 H 174 H 184 H Calcium Ferritin Lactate Dehydrogenase C-Reactive Protein Total Protein Albumin Arterial Blood Glucose Arterial Blood Ionized Calcium SARS-CoV-2 IgG Ab 07/17/20 07/17/20 07/17/20 04:30 05:47 13:03 WBC RBC Hgb Lymph % (Auto) Lymph # (Auto) Seg Neuts % (Manual) Lymphocytes % (Manual) Seg Neutrophils # Seg Neutrophils # Man Lymphocytes # (Manual) D-Dimer ABG pH POC ABG pCO2 POC ABG pO2 ABG pO2 ABG HCO3 38.1 H ABG O2 Saturation ABG Base Excess 11.3 H ABG Hemoglobin 10.5 L ABG Sodium ABG Potassium ABG Chloride ABG Glucose Oxyhemoglobin Chloride Carbon Dioxide BUN Creatinine Glucose POC Glucose 135 H 210 H Calcium Ferritin Lactate Dehydrogenase C-Reactive Protein Total Protein Albumin Arterial Blood Glucose Arterial Blood Ionized Calcium SARS-CoV-2 IgG Ab 07/17/20 07/17/20 07/18/20 16:50 23:39 04:01 WBC RBC Hgb Lymph % (Auto) Lymph # (Auto) Seg Neuts % (Manual) Lymphocytes % (Manual) Seg Neutrophils # Seg Neutrophils # Man Lymphocytes # (Manual) D-Dimer ABG pH POC ABG pCO2 56.8 H POC ABG pO2 61.9 L ABG pO2 ABG HCO3 ABG O2 Saturation ABG Base Excess ABG Hemoglobin 11.7 L ABG Sodium 134.2 L ABG Potassium 4.7 H ABG Chloride 97.0 L ABG Glucose 173 H Oxyhemoglobin Chloride Carbon Dioxide BUN Creatinine Glucose POC Glucose 193 H 163 H Calcium Ferritin Lactate Dehydrogenase C-Reactive Protein Total Protein Albumin Arterial Blood Glucose 173 H Arterial Blood Ionized Calcium SARS-CoV-2 IgG Ab 07/18/20 07/18/20 05:41 12:03 WBC RBC Hgb Lymph % (Auto) Lymph # (Auto) Seg Neuts % (Manual) Lymphocytes % (Manual) Seg Neutrophils # Seg Neutrophils # Man Lymphocytes # (Manual) D-Dimer ABG pH POC ABG pCO2 POC ABG pO2 ABG pO2 ABG HCO3 ABG O2 Saturation ABG Base Excess ABG Hemoglobin ABG Sodium ABG Potassium ABG Chloride ABG Glucose Oxyhemoglobin Chloride Carbon Dioxide BUN Creatinine Glucose POC Glucose 153 H 177 H Calcium Ferritin Lactate Dehydrogenase C-Reactive Protein Total Protein Albumin Arterial Blood Glucose Arterial Blood Ionized Calcium SARS-CoV-2 IgG Ab Chest x-ray: image reviewed (worsening bilateral pulmonary infiltrates) Allied health notes reviewed: nursing
--- NOTE | 2020-07-18 15:08 | Progress Note ---
Assessment and Plan --Acute asthma exacerbation on iv steroid Oxygen supplementation as needed Continue montelukast Monitor oxygen saturations closely -- COVID-19 Tested positive for COVID-19 in [place] iv steroid, s/p Remdesivir for 5 days s/p convalescent plasma transfusion Procalcitonin <0.05 ID on board follow ferritin, ldh, d-dimer levels -- Acute hypoxic respiratory failure Now intubated on 07/09/20 overnight From COVID-19 and asthma exacerbation Continue steroids Continue oxygen supplementation -- GERD (gastroesophageal reflux disease) cont Pantoprazole --SLE (systemic lupus erythematosus related syndrome) Continue home medications-hydroxychloroquine -- DVT prophylaxis Lovenox 30 mg twice daily -- Full code status The high probability of a clinically significant, sudden or life threatening deterioration of the [[facility], respiratory, MEDICAL RECORDS CLERK] system(s) required my full and direct attention, intervention and personal management. The aggregate critical care time was [33] minutes. This time is in addition to time spent performing reported procedures but includes the following: [x] Data Review and interpretation [x] Patient assessment and monitoring of vital signs [x] Documentation [x] Medication orders and management brief History: 50-year-old female with a past medical history of asthma, hypertension, and lupus complains of generalized body weakness, fever and shortness of breath. Patient states the symptoms started right after she was discharged from [place] on 07/05. She has associated wheezing, fever, cough and she has been using her inhalers with no significant effect. She also has associated diarrhea. Of note, she was hospitalized here in [facility] on 06/28 for asthma exacerbation and had a negative Covid test during the admission. She was treated and discharged. She presented to [place] for further evaluation after discharge from here and over there, she was found to have positive COVID-19 test and she was placed on steroids and subsequently discharged on Eliquis prophylaxis for DVT. She states that she did not receive remdesivir during the admission. She was discharged from [place] on 07/05. She went home and felt worse. She said that she passed out about 2 times. Due to persistent symptoms, she called EMS who brought her to [facility] for further evaluation. Daily course: 07/07. Patient seen and examined at bedside this morning. Patient is wheezing and slightly short of breath. Change steroids to Solu-Medrol 60 every 6. Added formoterol and budesonide. ID evaluation pending. Started patient on remdesivir as she is short of breath. 07/07: Placed on BIPAP this AM. Will need pulm evaluation. Solumedrol 60mg q6. STAT blood gas ordered. She will be transferred to [facility]. 07/08: Patient took oxygen off and attempts to go to the bathroom and subsequently became hypoxemic with sats down into the low 80s. Patient became weak short of breath. After that time patient had persistent coughing and cannot maintain sats until nonrebreather was placed. Patient is transferred to the ICU unit and monitored for respiratory failure possibly requiring intubation. 07/09: ID recommended for convalescent plasma, ordered. Patient intubated overnight. Continue to monitor clinically, scheduled lab, follow inflammatory markers 07/10: Wait for convalescent plasma transfusion, wean off from ventilator as tolerated 07/11: Called patient's daughter and updated. Continue to wean off vent as tolerated, continue tube feeding, monitor vital sign CBC BMP daily. 07/12: remains intubated and sedated. follow inflammatory markers - wean off vent as tolerated 07/13: wean off vent as tolerated, cxr in the am. reviewed vitals 07/14: remains intubated, has not received convalescent plasma yet. Reviewed vitals, tolerating tube feeding. Wean off vent per critical care as tolerated. 07/15: cont to provide supportive care, wean off vent as tolerated - difficult to wean off. 07/16: CXR findings improving, cont to wean off vent 07/17: Follow inflammatory markers, monitor off antibiotics. Wean off vent per pulmonary as tolerated 07/18: Wean off vent per pulmonary as tolerated,Follow inflammatory markers, monitor off antibiotics. Subjective Date of service: 07/18/20 Principal diagnosis: Ac hypoxemic resp failure; PNA; COVID-19 infxn; SLE; Asthma exacerbation Interval history: Patient seen and examined Patient remains intubated on mechanical ventilation Discussed with RN at the bedside, on tube feeding Reviewed vitals, Objective - Exam Narrative Exam: GENERAL: well-developed obese -[place] female lying on bed intubated and sedated HEENT: Normocephalic. Atraumatic. No conjunctival congestion or icterus. Patient has moist mucous membranes. NECK: Supple. Trachea midline. ET tube in place, intubated with mechanical ventilation CHEST/LUNGS: Diffuse expiratory wheezes, coarse breath sound bilaterally HEART/CARDIOVASCULAR: Regular in rate and rhythm. S1 and S2 positive. ABDOMEN: Abdomen is soft, nontender. Patient has normal bowel sounds. SKIN: There is no rash. Warm and dry. NEURO: Sedated MUSCULOSKELETAL: No joint effusion or tenderness. EXTRIMITY: No edema, no cyanosis or clubbing. PSYCH: Unable to assess - Constitutional Vitals: Vital Signs - 12hr 07/18/20 07/18/20 07/18/20 03:30 03:54 04:00 Temperature 98.1 F Pulse Rate 66 78 74 Pulse Rate [ Bilateral Throughout] Pulse Rate [ 85 From Monitor] Respiratory 15 17 Rate Respiratory Rate [Bilateral Throughout] Blood Pressure 105/60 105/60 116/68 O2 Sat by Pulse 89 92 92 Oximetry 07/18/20 07/18/20 07/18/20 04:30 05:00 05:30 Temperature Pulse Rate 87 78 94 H Pulse Rate [ Bilateral Throughout] Pulse Rate [ From Monitor] Respiratory 14 17 21 Rate Respiratory Rate [Bilateral Throughout] Blood Pressure 105/60 104/64 117/73 O2 Sat by Pulse 92 89 93 Oximetry 07/18/20 07/18/20 07/18/20 06:00 06:30 07:00 Temperature Pulse Rate 70 87 82 Pulse Rate [ Bilateral Throughout] Pulse Rate [ From Monitor] Respiratory 17 21 15 Rate Respiratory Rate [Bilateral Throughout] Blood Pressure 117/67 111/72 121/82 O2 Sat by Pulse 89 89 90 Oximetry 07/18/20 07/18/20 07/18/20 07:30 08:00 08:30 Temperature 98.6 F Pulse Rate 79 68 73 Pulse Rate [ Bilateral Throughout] Pulse Rate [ 74 From Monitor] Respiratory 16 20 17 Rate Respiratory Rate [Bilateral Throughout] Blood Pressure 130/75 116/71 126/71 O2 Sat by Pulse 91 90 94 Oximetry 07/18/20 07/18/20 07/18/20 08:36 09:00 09:31 Temperature Pulse Rate 73 72 Pulse Rate [ 75 Bilateral Throughout] Pulse Rate [ From Monitor] Respiratory 18 Rate Respiratory 17 Rate [Bilateral Throughout] Blood Pressure 126/71 118/67 O2 Sat by Pulse 90 93 Oximetry 07/18/20 07/18/20 07/18/20 11:51 12:00 14:53 Temperature 99.2 F Pulse Rate 81 Pulse Rate [ 69 Bilateral Throughout] Pulse Rate [ From Monitor] Respiratory Rate Respiratory 19 Rate [Bilateral Throughout] Blood Pressure 117/64 O2 Sat by Pulse 90 Oximetry - Labs CBC & Chem 7: 07/19/20 08:30 07/19/20 08:30 Labs: Abnormal lab results 07/17/20 07/17/20 07/18/20 Range/Units 16:50 23:39 04:01 POC ABG pCO2 56.8 H (32.0-48.0) mmHg POC ABG pO2 61.9 L (83-108) mmHg ABG Hemoglobin 11.7 L (12.0-17.5) ABG Sodium 134.2 L (136.0-145.0) mmol/L ABG Potassium 4.7 H (3.40-4.50) mmol/L ABG Chloride 97.0 L (98-107) mmol/L ABG Glucose 173 H (65-95) mg/dL POC Glucose 193 H 163 H (70-105) mg/dL Arterial Blood Glucose 173 H (65-95) mg/dL 07/18/20 07/18/20 Range/Units 05:41 12:03 POC ABG pCO2 (32.0-48.0) mmHg POC ABG pO2 (83-108) mmHg ABG Hemoglobin (12.0-17.5) ABG Sodium (136.0-145.0) mmol/L ABG Potassium (3.40-4.50) mmol/L ABG Chloride (98-107) mmol/L ABG Glucose (65-95) mg/dL POC Glucose 153 H 177 H (70-105) mg/dL Arterial Blood Glucose (65-95) mg/dL
[2020-07-18] MEDS: INSULIN GLARGINE 100 UNITS/ML SUB-Q SCH (17:53)
--- NOTE | 2020-07-18 23:26 | XRay Report ---
CHEST 1 VIEW 07/18/2020 11:15 PM INDICATION / CLINICAL INFORMATION: ett placement. COMPARISON: 07/13/2020 FINDINGS: SUPPORT DEVICES: ET tube tip is about 4 cm above the hali. NG tube extends below the diaphragm. Lef t upper extremity PICC stable. HEART / MEDIASTINUM: Stable. LUNGS / PLEURA: Worsening patchy bilateral opacities. No pneumothorax. ADDITIONAL FINDINGS: No significant additional findings. IMPRESSION: 1. Endotracheal tube in expected position. 2. Worsening patchy bilateral pulmonary opacities. Signer Name: Dylan Jones MD Signed: 07/18/2020 11:21 PM Workstation Name: [id number]
[2020-07-18] MEDS: MIDAZOLAM 2 MG/2 ML INJ IV PRN (23:46)
[2020-07-19] MEDS: INSULIN REGULAR, HUMAN 100 UNIT/ML 3ML VIAL SUB-Q SCH ×4 (02:57→17:37)
[2020-07-19] MEDS: fentaNYL DRIP Premix 2,000 MCG/100 ML BAG IV SCH ×4 (04:05→19:04)
[2020-07-19] MEDS: ZINC SULFATE 220 MG CAP PO SCH ×3 (04:07→23:01)
[2020-07-19] MEDS: QUEtiapine 200 MG TAB PO SCH ×3 (04:07→23:02)
[2020-07-19] MEDS: ASCORBIC ACID 500 MG TAB PO SCH ×3 (04:07→23:02)
[2020-07-19] MEDS: DOCUSATE SODIUM 100 MG/10 ML ORAL LIQD PO SCH ×3 (04:07→23:00)
[2020-07-19] MEDS: methylPREDNISolone Sod Succinate 125 MG/2 ML INJ IV SCH ×5 (04:08→23:01)
[2020-07-19] MEDS: POLYETHYLENE GLYCOL 3350 17 GM POWDER PO SCH ×2 (04:08→23:01)
[2020-07-19] MEDS: ENOXAPARIN 30 MG/0.3 ML INJ SUB-Q SCH ×4 (04:09→23:01)
[2020-07-19] MEDS: MIDAZOLAM 100 MG in SODIUM CHLORIDE 0.9% 80 ML IV SCH (04:22)
[2020-07-19] MEDS: BUDESONIDE 0.5 MG/2 ML NEBU IH SCH ×2 (07:51→20:33)
[2020-07-19] MEDS: ALBUTEROL 2.5 MG/3 ML NEBU IH SCH ×3 (07:51→20:33)
[2020-07-19] MEDS: ARFORMOTEROL 15 MCG/2 ML NEBU IH SCH ×2 (07:51→20:33)
[2020-07-19] MEDS: ASPIRIN 81 MG TAB CHEW PO SCH (10:19)
[2020-07-19] MEDS: HYDROXYCHLOROQUINE 200 MG TAB PO SCH (10:19)
[2020-07-19] MEDS: LANSOPRAZOLE 30 MG SOLUTAB FEEDTUBE SCH (10:19)
[2020-07-19] MEDS: VENLAFAXINE 37.5 MG TAB PO SCH (10:19)
[2020-07-19 10:58] LABS: Hematocrit 33.2 % (30.3-42.9); Hemoglobin 11.1 gm/dl (10.1-14.3); Mean Corpuscular HGB Conc 33 % (30-34); Mean Corpuscular Volume 92 fl (79-97); Platelet Count 200 K/mm3 (140-440); Red Blood Count 3.59 M/mm3 (3.65-5.03); Red Cell Distribution Width 14.4 % (13.2-15.2)
[2020-07-19 11:16] LABS: Blood Urea Nitrogen 20 mg/dL (7-17); Calcium 8.1 mg/dL (8.4-10.2); Hemolysis Index 5
[2020-07-19 11:25] LABS: BUN/Creatinine Ratio 50
--- NOTE | 2020-07-19 12:00 | Progress Note ---
Assessment and Plan Cultures: Blood cultures 07/07/2020 no growth today SARS COV2- IgG negative Sputum culture 07/08/2020 usual respiratory ker[place] Blood culture 07/11/2020 no growth today MRSA nasal culture: Negative Tracheal aspirate 07/12/2020: Usual respiratory kerwin A/P: 50-year-old female with CHF, asthma, hypertension, lupus was admitted to the hospital with complaints of fever, shortness of breath. Of note, she was seen last week due to an asthma exacerbation when her SARS-CoV-2 PCR and IgG were both negative. She was treated with steroids. She reportedly then went to [place] and tested positive for COVID-19 and was discharged from the hospital on 07/05/2020 readmitted here with: #Critical COVID pneumonia (was diagnosed at [place] and discharged): completed Remdesivir. Remains on steroids per pulm. S/P CCP. #Acute asthma exacerbation: on nebs and steroids. #Acute hypoxic respiratory failure: Extubated 07/19/2020 #Lupus, immunocompromised host: On Plaquenil. Recs: On steroids, wean per pulmonary/ICU prophylactic anticoagulation based on d-dimer Leucocytosis is likely due to steroids. Remains off antibiotics ID will sign off. Please call with questions. Marquez Aponte MD, FACP [facility] O: [phone] F: [phone] Subjective Date of service: 07/19/20 Principal diagnosis: Ac hypoxemic resp failure; PNA; COVID-19 infxn; SLE; Asthma exacerbation Interval history: Afebrile. Extubated. Objective - Exam Narrative Exam: Physical Exam (reviewed in chart due to PPE conservation and minimize risk of transmission) Constitutional: limited due to PPE conservation strategy Head, Ears, Nose: limited due to PPE conservation strategy Eyes: limited due to PPE conservation strategy Neck: limited due to PPE conservation strategy Oral: limited due to PPE conservation strategy Cardiovascular: limited due to PPE conservation strategy Respiratory: limited due to PPE conservation strategy GI: limited due to PPE conservation strategy Musculoskeletal: limited due to PPE conservation strategy Skin: limited due to PPE conservation strategy Hem/Lymphatic: limited due to PPE conservation strategy Psych: limited due to PPE conservation strategy Neurological: limited due to PPE conservation strategy - Constitutional Vitals: Vital Signs Temp Pulse Resp BP Pulse Ox 99.4 F 89 19 100/55 99 07/19/20 03:53 07/19/20 11:00 07/19/20 11:00 07/19/20 11:00 07/19/20 11:00 Temperature -Last 24 Hours Temperature 99.4 F Temperature 99.2 F Temperature 98.9 F Temperature 98.1 F Temperature 99.2 F - Labs CBC & Chem 7: 07/19/20 08:30 07/19/20 08:30 Labs: Abnormal lab results 07/18/20 07/18/20 07/18/20 Range/Units 12:03 17:26 23:58 WBC (4.5-11.0) K/mm3 RBC (3.65-5.03) M/mm3 ABG pH (7.320-7.450) POC ABG pCO2 (32.0-48.0) mmHg POC ABG pO2 (83-108) mmHg ABG Hemoglobin (12.0-17.5) ABG Sodium (136.0-145.0) mmol/L ABG Chloride (98-107) mmol/L ABG Glucose (65-95) mg/dL Chloride (98-107) mmol/L Carbon Dioxide (22-30) mmol/L BUN (7-17) mg/dL Creatinine (0.6-1.2) mg/dL Glucose (65-100) mg/dL POC Glucose 177 H 160 H 144 H (70-105) mg/dL Calcium (8.4-10.2) mg/dL Arterial Blood Glucose (65-95) mg/dL 07/19/20 07/19/20 07/19/20 Range/Units 04:15 05:05 08:30 WBC 17.2 H (4.5-11.0) K/mm3 RBC 3.59 L (3.65-5.03) M/mm3 ABG pH 7.465 H (7.320-7.450) POC ABG pCO2 49.1 H (32.0-48.0) mmHg POC ABG pO2 49.4 L (83-108) mmHg ABG Hemoglobin 11.6 L (12.0-17.5) ABG Sodium 132.3 L (136.0-145.0) mmol/L ABG Chloride 97.0 L (98-107) mmol/L ABG Glucose 148 H (65-95) mg/dL Chloride (98-107) mmol/L Carbon Dioxide (22-30) mmol/L BUN (7-17) mg/dL Creatinine (0.6-1.2) mg/dL Glucose (65-100) mg/dL POC Glucose 117 H (70-105) mg/dL Calcium (8.4-10.2) mg/dL Arterial Blood Glucose 148 H (65-95) mg/dL 07/19/20 Range/Units 08:30 WBC (4.5-11.0) K/mm3 RBC (3.65-5.03) M/mm3 ABG pH (7.320-7.450) POC ABG pCO2 (32.0-48.0) mmHg POC ABG pO2 (83-108) mmHg ABG Hemoglobin (12.0-17.5) ABG Sodium (136.0-145.0) mmol/L ABG Chloride (98-107) mmol/L ABG Glucose (65-95) mg/dL Chloride 95.7 L (98-107) mmol/L Carbon Dioxide 37 H (22-30) mmol/L BUN 20 H (7-17) mg/dL Creatinine 0.4 L (0.6-1.2) mg/dL Glucose 125 H (65-100) mg/dL POC Glucose (70-105) mg/dL Calcium 8.1 L (8.4-10.2) mg/dL Arterial Blood Glucose (65-95) mg/dL
--- NOTE | 2020-07-19 12:17 | Progress Note ---
Assessment and Plan Acute hypoxemic respiratory failure, now on MVS Bilateral pneumonia, left greater than right lungs. COVID-19 infection. History of congestive heart failure. History of lupus erythematosus. Leukocytosis. Tobacco use disorder. Acute asthma exacerbation. History of hypertension. Obesity - re-intubated RSI after exp[laining risks & benefits - add Propfol for sedation (she was alert while on Fentanyl & Versed drips) - follow 2D ECHO re: EF - consider gentle diuresis thereafter - trend WBC / follow clinically - slow systemic steroids taper - keep peep at 12 for now - continue to wean supplemental oxygen for target O2 sat's > 92% - no new issues otherwise, continue care as below; - continue Lantus 5 units SQ q24h - continue low dose SSI - continue Seroquel 200 mg p.o. bid - continue airborne and contact isolation - follow repeat COVID-19 testing - continue Zinc & Vit C supplementaion - complete Remdesivir - empiric AB's coverage per ID rec's otherwise - continue systemic steroids for Asthma / severe COVID infection - continue Daily SAT and SBT assessment as tolerated - VAP bundle addressed - continue lung protective strategies - continue bronchodilators with pulmonary hygiene per RT - wean per pulmonary driven protocols otherwise - accuchecks with glycemic control per SSI (While critically ill target blood glucose of 140-180 mg/dL; avoid hypoglycemia) - sedation prn for target RASS -1 to -2 - avoid nephrotoxins, renally dose all medications - continue to avoid benzodiazepine's, reduce the possibility of delirium - prn analgesia per CPOT score - Maintenance of sleep-wake cycle, avoid delirium - continue enteral nutritional support at goal rate as tolerated - G.I. & VTE prophylaxis - PT/OT/ROM exercises - continue mobility protocols for pressure ulcer prophylaxis - Monitor hemodynamics closely - continue other care per attending / other consultants - discharge planning ongoing concurrently .... Re-evaluate in am & prn CONDITION: CRITICAL PROGNOSIS: GUARDED CODE STATUS: FULL CODE The high probability of a clinically significant, sudden or life-threatening deterioration of the [respiratory, cardiovascular & neurologic] system(s) required my full and direct attention, intervention and personal management. The aggregate critical care time was [37] minutes without overlap. Time includes spent on; [x] Data Review and interpretation [x] Patient assessment and monitoring of vital signs [x] Documentation [x] Medication orders and management Subjective Date of service: 07/19/20 Principal diagnosis: Ac hypoxemic resp failure; PNA; COVID-19 infxn; SLE; Asthma exacerbation Interval history: Patient is seen today for: Acute hypoxemic respiratory failure; Bilateral pneumonia; COVID-19 infection; H/O CHF; SLE; Acute asthma exacerbation. HTN; Obesity Seen and examined at bedside; 24hour events reviewed; nursing and respiratory care staff consulted; no adverse overnight events reported to me; resting peacefully in bed; self extubated while on peep of 12 and 55% FiO2; complained of "being awake" while intubated; still SOB and with increased work of breathing on a 100% NRB Objective Vital Signs - 12hr 07/19/20 07/19/20 07/19/20 00:30 01:00 01:30 Temperature Pulse Rate 66 70 65 Pulse Rate [ Bilateral Throughout] Pulse Rate [ From Monitor] Respiratory 16 16 16 Rate Respiratory Rate [Bilateral Throughout] Blood Pressure 107/50 113/55 111/60 O2 Sat by Pulse 98 100 99 Oximetry 07/19/20 07/19/20 07/19/20 02:00 02:30 03:00 Temperature Pulse Rate 64 74 66 Pulse Rate [ Bilateral Throughout] Pulse Rate [ From Monitor] Respiratory 17 19 17 Rate Respiratory Rate [Bilateral Throughout] Blood Pressure 111/60 101/55 102/60 O2 Sat by Pulse 98 95 96 Oximetry 07/19/20 07/19/20 07/19/20 03:30 03:53 04:01 Temperature 99.4 F Pulse Rate 73 88 Pulse Rate [ Bilateral Throughout] Pulse Rate [ From Monitor] Respiratory 16 26 H Rate Respiratory Rate [Bilateral Throughout] Blood Pressure 102/60 128/76 O2 Sat by Pulse 96 84 Oximetry 07/19/20 07/19/20 07/19/20 04:30 04:31 05:01 Temperature Pulse Rate 72 74 78 Pulse Rate [ Bilateral Throughout] Pulse Rate [ From Monitor] Respiratory 24 22 Rate Respiratory Rate [Bilateral Throughout] Blood Pressure 112/58 112/58 112/58 O2 Sat by Pulse 94 94 92 Oximetry 07/19/20 07/19/20 07/19/20 05:31 06:01 06:30 Temperature Pulse Rate 74 81 72 Pulse Rate [ Bilateral Throughout] Pulse Rate [ From Monitor] Respiratory 16 20 17 Rate Respiratory Rate [Bilateral Throughout] Blood Pressure 109/46 106/59 103/53 O2 Sat by Pulse 98 100 100 Oximetry 07/19/20 07/19/20 07/19/20 07:00 07:30 07:51 Temperature Pulse Rate 74 73 79 Pulse Rate [ 85 Bilateral Throughout] Pulse Rate [ From Monitor] Respiratory 21 20 Rate Respiratory 24 Rate [Bilateral Throughout] Blood Pressure 110/53 111/49 111/49 O2 Sat by Pulse 100 100 100 Oximetry 07/19/20 07/19/20 07/19/20 08:00 08:30 09:00 Temperature Pulse Rate 96 H 71 76 Pulse Rate [ Bilateral Throughout] Pulse Rate [ 96 H From Monitor] Respiratory 39 H 20 19 Rate Respiratory Rate [Bilateral Throughout] Blood Pressure 126/65 99/52 101/51 O2 Sat by Pulse 100 100 100 Oximetry 07/19/20 07/19/20 07/19/20 09:30 10:00 10:30 Temperature Pulse Rate 80 84 98 H Pulse Rate [ Bilateral Throughout] Pulse Rate [ From Monitor] Respiratory 20 17 25 H Rate Respiratory Rate [Bilateral Throughout] Blood Pressure 108/53 110/53 106/61 O2 Sat by Pulse 99 99 99 Oximetry 07/19/20 11:00 Temperature Pulse Rate 89 Pulse Rate [ Bilateral Throughout] Pulse Rate [ From Monitor] Respiratory 19 Rate Respiratory Rate [Bilateral Throughout] Blood Pressure 100/55 O2 Sat by Pulse 99 Oximetry Constitutional: appears uncomfortable, other (middle aged obese female with moderately increased respiratory effort at rest on NRB) Eyes: non-icteric ENT: oropharynx moist, other (100% NRB) Neck: supple, no lymphadenopathy, no JVD Effort: mildly labored Ascultation: Bilateral: diminished breath sounds, rhonchi (scant ), other (+ mild accesory muscle use) Percussion: Bilateral: not dull Cardiovascular: regular rate and rhythm Gastrointestinal: normoactive bowel sounds, soft, non-tender, non-distended Integumentary: normal Extremities: no cyanosis, no edema, pulses normal, no ischemia or petechiae Neurologic: normal mental status, non-focal exam, pupils equal and round, motor strength normal and Psychiatric: mood appropriate, affect normal CBC and BMP: 07/19/20 08:30 07/19/20 08:30 ABG, PT/INR, D-dimer: ABG ABG pH 7.465 (7.320-7.450) H 07/19/20 04:15 POC ABG pCO2 49.1 mmHg (32.0-48.0) H 07/19/20 04:15 ABG pCO2 62.9 mm Hg 07/17/20 04:30 POC ABG pO2 49.4 mmHg (83-108) L 07/19/20 04:15 ABG pO2 83.1 mm Hg (80.0-90.0) 07/17/20 04:30 POC ABG HCO3 34.5 07/19/20 04:15 ABG O2 Saturation 96.7 % (95.0-99.0) 07/17/20 04:30 PT/INR, D-dimer D-Dimer 826.36 ng/mlDDU (0-234) H 07/13/20 07:20 Abnormal lab findings: Abnormal Labs 07/06/20 07/06/20 07/07/20 05:24 17:16 04:50 WBC 13.5 H 12.7 H RBC Hgb Lymph % (Auto) Lymph # (Auto) Seg Neuts % (Manual) 86.0 H 87.0 H Lymphocytes % (Manual) 6.0 L 9.0 L Seg Neutrophils # Seg Neutrophils # Man 11.6 H 11.0 H Lymphocytes # (Manual) 0.8 L 1.1 L D-Dimer ABG pH POC ABG pCO2 POC ABG pO2 ABG pO2 ABG HCO3 ABG O2 Saturation ABG Base Excess ABG Hemoglobin ABG Sodium ABG Potassium ABG Chloride ABG Glucose Oxyhemoglobin Chloride Carbon Dioxide BUN Creatinine Glucose POC Glucose Calcium Ferritin Lactate Dehydrogenase 242 H C-Reactive Protein 7.30 H Total Protein Albumin Arterial Blood Glucose Arterial Blood Ionized Calcium SARS-CoV-2 IgG Ab 07/07/20 07/07/20 07/07/20 04:50 14:22 14:22 WBC RBC Hgb Lymph % (Auto) Lymph # (Auto) Seg Neuts % (Manual) Lymphocytes % (Manual) Seg Neutrophils # Seg Neutrophils # Man Lymphocytes # (Manual) D-Dimer ABG pH POC ABG pCO2 POC ABG pO2 ABG pO2 ABG HCO3 ABG O2 Saturation ABG Base Excess ABG Hemoglobin ABG Sodium ABG Potassium ABG Chloride ABG Glucose Oxyhemoglobin Chloride Carbon Dioxide BUN 18 H Creatinine Glucose 138 H POC Glucose Calcium Ferritin 228.2 H Lactate Dehydrogenase 277 H C-Reactive Protein Total Protein 5.9 L Albumin 3.4 L Arterial Blood Glucose Arterial Blood Ionized Calcium SARS-CoV-2 IgG Ab 07/08/20 07/08/20 07/08/20 11:18 12:57 16:13 WBC RBC Hgb Lymph % (Auto) Lymph # (Auto) Seg Neuts % (Manual) Lymphocytes % (Manual) Seg Neutrophils # Seg Neutrophils # Man Lymphocytes # (Manual) D-Dimer ABG pH POC ABG pCO2 POC ABG pO2 ABG pO2 39.3 L* ABG HCO3 ABG O2 Saturation 76.8 L ABG Base Excess ABG Hemoglobin ABG Sodium ABG Potassium ABG Chloride ABG Glucose Oxyhemoglobin 75.3 L Chloride Carbon Dioxide 20 L D BUN Creatinine Glucose 135 H POC Glucose 106 H Calcium 8.0 L Ferritin Lactate Dehydrogenase C-Reactive Protein Total Protein Albumin Arterial Blood Glucose Arterial Blood Ionized Calcium SARS-CoV-2 IgG Ab 07/08/20 07/08/20 07/09/20 17:04 18:45 04:00 WBC 15.6 H RBC Hgb Lymph % (Auto) 4.7 L Lymph # (Auto) 0.7 L Seg Neuts % (Manual) Lymphocytes % (Manual) Seg Neutrophils # 14.2 H Seg Neutrophils # Man Lymphocytes # (Manual) D-Dimer ABG pH POC ABG pCO2 POC ABG pO2 ABG pO2 181.8 H ABG HCO3 ABG O2 Saturation 99.1 H ABG Base Excess ABG Hemoglobin 11.4 L ABG Sodium ABG Potassium ABG Chloride ABG Glucose Oxyhemoglobin Chloride Carbon Dioxide BUN Creatinine Glucose POC Glucose 117 H Calcium Ferritin Lactate Dehydrogenase C-Reactive Protein Total Protein Albumin Arterial Blood Glucose Arterial Blood Ionized Calcium SARS-CoV-2 IgG Ab 07/09/20 07/09/20 07/09/20 04:00 04:00 04:49 WBC RBC Hgb Lymph % (Auto) Lymph # (Auto) Seg Neuts % (Manual) Lymphocytes % (Manual) Seg Neutrophils # Seg Neutrophils # Man Lymphocytes # (Manual) D-Dimer ABG pH POC ABG pCO2 POC ABG pO2 ABG pO2 ABG HCO3 26.2 H ABG O2 Saturation ABG Base Excess ABG Hemoglobin 11.2 L ABG Sodium ABG Potassium ABG Chloride ABG Glucose Oxyhemoglobin 94.9 L Chloride Carbon Dioxide BUN Creatinine Glucose 158 H POC Glucose Calcium 8.2 L Ferritin 320.0 H Lactate Dehydrogenase 391 H C-Reactive Protein 9.50 H Total Protein 5.9 L Albumin 3.2 L Arterial Blood Glucose Arterial Blood Ionized Calcium SARS-CoV-2 IgG Ab 07/09/20 07/09/20 07/09/20 11:56 17:49 23:39 WBC RBC Hgb Lymph % (Auto) Lymph # (Auto) Seg Neuts % (Manual) Lymphocytes % (Manual) Seg Neutrophils # Seg Neutrophils # Man Lymphocytes # (Manual) D-Dimer ABG pH POC ABG pCO2 POC ABG pO2 ABG pO2 ABG HCO3 ABG O2 Saturation ABG Base Excess ABG Hemoglobin ABG Sodium ABG Potassium ABG Chloride ABG Glucose Oxyhemoglobin Chloride Carbon Dioxide BUN Creatinine Glucose POC Glucose 156 H 119 H 145 H Calcium Ferritin Lactate Dehydrogenase C-Reactive Protein Total Protein Albumin Arterial Blood Glucose Arterial Blood Ionized Calcium SARS-CoV-2 IgG Ab 07/10/20 07/10/20 07/10/20 03:32 05:26 11:22 WBC RBC Hgb Lymph % (Auto) Lymph # (Auto) Seg Neuts % (Manual) Lymphocytes % (Manual) Seg Neutrophils # Seg Neutrophils # Man Lymphocytes # (Manual) D-Dimer ABG pH POC ABG pCO2 POC ABG pO2 ABG pO2 75.7 L ABG HCO3 27.5 H ABG O2 Saturation ABG Base Excess ABG Hemoglobin 9.3 L ABG Sodium ABG Potassium ABG Chloride ABG Glucose Oxyhemoglobin 94.7 L Chloride Carbon Dioxide BUN Creatinine Glucose POC Glucose 156 H 148 H Calcium Ferritin Lactate Dehydrogenase C-Reactive Protein Total Protein Albumin Arterial Blood Glucose Arterial Blood Ionized Calcium SARS-CoV-2 IgG Ab 07/10/20 07/10/20 07/10/20 12:10 12:10 18:20 WBC 14.1 H RBC 3.33 L Hgb 9.9 L Lymph % (Auto) Lymph # (Auto) Seg Neuts % (Manual) 89.0 H Lymphocytes % (Manual) 8.0 L Seg Neutrophils # Seg Neutrophils # Man 12.5 H Lymphocytes # (Manual) 1.1 L D-Dimer ABG pH POC ABG pCO2 POC ABG pO2 ABG pO2 ABG HCO3 ABG O2 Saturation ABG Base Excess ABG Hemoglobin ABG Sodium ABG Potassium ABG Chloride ABG Glucose Oxyhemoglobin Chloride Carbon Dioxide BUN 21 H Creatinine Glucose 154 H POC Glucose 181 H Calcium 8.0 L Ferritin Lactate Dehydrogenase C-Reactive Protein Total Protein 5.4 L Albumin 3.0 L Arterial Blood Glucose Arterial Blood Ionized Calcium SARS-CoV-2 IgG Ab 07/10/20 07/11/20 07/11/20 23:51 04:05 05:43 WBC RBC Hgb Lymph % (Auto) Lymph # (Auto) Seg Neuts % (Manual) Lymphocytes % (Manual) Seg Neutrophils # Seg Neutrophils # Man Lymphocytes # (Manual) D-Dimer ABG pH 7.348 L POC ABG pCO2 POC ABG pO2 ABG pO2 93.6 H ABG HCO3 28.5 H ABG O2 Saturation ABG Base Excess ABG Hemoglobin 10.1 L ABG Sodium ABG Potassium ABG Chloride ABG Glucose Oxyhemoglobin Chloride Carbon Dioxide BUN Creatinine Glucose POC Glucose 116 H 132 H Calcium Ferritin Lactate Dehydrogenase C-Reactive Protein Total Protein Albumin Arterial Blood Glucose Arterial Blood Ionized Calcium SARS-CoV-2 IgG Ab 07/11/20 07/11/20 07/11/20 09:11 09:11 09:11 WBC 15.8 H RBC 3.44 L Hgb Lymph % (Auto) Lymph # (Auto) Seg Neuts % (Manual) 92.0 H Lymphocytes % (Manual) 4.0 L Seg Neutrophils # Seg Neutrophils # Man 14.5 H Lymphocytes # (Manual) 0.6 L D-Dimer 360.61 H ABG pH POC ABG pCO2 POC ABG pO2 ABG pO2 ABG HCO3 ABG O2 Saturation ABG Base Excess ABG Hemoglobin ABG Sodium ABG Potassium ABG Chloride ABG Glucose Oxyhemoglobin Chloride 107.1 H Carbon Dioxide BUN 22 H Creatinine Glucose 149 H POC Glucose Calcium 7.8 L Ferritin Lactate Dehydrogenase 483 H C-Reactive Protein 2.30 H Total Protein 4.9 L Albumin 3.0 L Arterial Blood Glucose Arterial Blood Ionized Calcium SARS-CoV-2 IgG Ab 07/11/20 07/11/20 07/11/20 09:11 12:16 17:55 WBC RBC Hgb Lymph % (Auto) Lymph # (Auto) Seg Neuts % (Manual) Lymphocytes % (Manual) Seg Neutrophils # Seg Neutrophils # Man Lymphocytes # (Manual) D-Dimer ABG pH POC ABG pCO2 POC ABG pO2 ABG pO2 ABG HCO3 ABG O2 Saturation ABG Base Excess ABG Hemoglobin ABG Sodium ABG Potassium ABG Chloride ABG Glucose Oxyhemoglobin Chloride Carbon Dioxide BUN Creatinine Glucose POC Glucose 157 H 166 H Calcium Ferritin 371.2 H Lactate Dehydrogenase C-Reactive Protein Total Protein Albumin Arterial Blood Glucose Arterial Blood Ionized Calcium SARS-CoV-2 IgG Ab 07/12/20 07/12/20 07/12/20 00:32 04:00 04:00 WBC RBC 3.52 L Hgb Lymph % (Auto) Lymph # (Auto) Seg Neuts % (Manual) 90.0 H Lymphocytes % (Manual) 4.0 L Seg Neutrophils # Seg Neutrophils # Man 9.5 H Lymphocytes # (Manual) 0.4 L D-Dimer ABG pH POC ABG pCO2 POC ABG pO2 ABG pO2 ABG HCO3 ABG O2 Saturation ABG Base Excess ABG Hemoglobin ABG Sodium ABG Potassium ABG Chloride ABG Glucose Oxyhemoglobin Chloride Carbon Dioxide 31 H BUN 21 H Creatinine Glucose 175 H POC Glucose 178 H Calcium 8.0 L Ferritin Lactate Dehydrogenase C-Reactive Protein Total Protein 5.4 L Albumin 3.0 L Arterial Blood Glucose Arterial Blood Ionized Calcium SARS-CoV-2 IgG Ab 07/12/20 07/12/20 07/12/20 04:01 05:47 12:09 WBC RBC Hgb Lymph % (Auto) Lymph # (Auto) Seg Neuts % (Manual) Lymphocytes % (Manual) Seg Neutrophils # Seg Neutrophils # Man Lymphocytes # (Manual) D-Dimer ABG pH 7.456 H POC ABG pCO2 POC ABG pO2 ABG pO2 ABG HCO3 ABG O2 Saturation ABG Base Excess ABG Hemoglobin 10.6 L ABG Sodium ABG Potassium ABG Chloride ABG Glucose 177 H Oxyhemoglobin Chloride Carbon Dioxide BUN Creatinine Glucose POC Glucose 185 H 227 H Calcium Ferritin Lactate Dehydrogenase C-Reactive Protein Total Protein Albumin Arterial Blood Glucose 177 H Arterial Blood Ionized Calcium 4.5 L SARS-CoV-2 IgG Ab 07/12/20 07/12/20 07/13/20 17:34 23:57 05:06 WBC RBC Hgb Lymph % (Auto) Lymph # (Auto) Seg Neuts % (Manual) Lymphocytes % (Manual) Seg Neutrophils # Seg Neutrophils # Man Lymphocytes # (Manual) D-Dimer ABG pH POC ABG pCO2 POC ABG pO2 ABG pO2 ABG HCO3 ABG O2 Saturation ABG Base Excess ABG Hemoglobin ABG Sodium ABG Potassium ABG Chloride ABG Glucose Oxyhemoglobin Chloride Carbon Dioxide BUN Creatinine Glucose POC Glucose 202 H 163 H 166 H Calcium Ferritin Lactate Dehydrogenase C-Reactive Protein Total Protein Albumin Arterial Blood Glucose Arterial Blood Ionized Calcium SARS-CoV-2 IgG Ab 07/13/20 07/13/20 07/13/20 07:20 07:20 07:20 WBC 20.5 H RBC Hgb Lymph % (Auto) Lymph # (Auto) Seg Neuts % (Manual) 93.0 H Lymphocytes % (Manual) 3.0 L Seg Neutrophils # Seg Neutrophils # Man 19.1 H Lymphocytes # (Manual) 0.6 L D-Dimer 826.36 H ABG pH POC ABG pCO2 POC ABG pO2 ABG pO2 ABG HCO3 ABG O2 Saturation ABG Base Excess ABG Hemoglobin ABG Sodium ABG Potassium ABG Chloride ABG Glucose Oxyhemoglobin Chloride Carbon Dioxide 31 H BUN 25 H Creatinine Glucose 163 H POC Glucose Calcium 8.1 L Ferritin Lactate Dehydrogenase 512 H C-Reactive Protein 1.80 H Total Protein 5.8 L Albumin 3.2 L Arterial Blood Glucose Arterial Blood Ionized Calcium SARS-CoV-2 IgG Ab 07/13/20 07/13/20 07/13/20 07:20 11:37 17:20 WBC RBC Hgb Lymph % (Auto) Lymph # (Auto) Seg Neuts % (Manual) Lymphocytes % (Manual) Seg Neutrophils # Seg Neutrophils # Man Lymphocytes # (Manual) D-Dimer ABG pH POC ABG pCO2 POC ABG pO2 ABG pO2 ABG HCO3 ABG O2 Saturation ABG Base Excess ABG Hemoglobin ABG Sodium ABG Potassium ABG Chloride ABG Glucose Oxyhemoglobin Chloride Carbon Dioxide BUN Creatinine Glucose POC Glucose 232 H 210 H Calcium Ferritin 219.8 H Lactate Dehydrogenase C-Reactive Protein Total Protein Albumin Arterial Blood Glucose Arterial Blood Ionized Calcium SARS-CoV-2 IgG Ab 07/13/20 07/13/20 07/14/20 23:57 Unknown 05:22 WBC RBC Hgb Lymph % (Auto) Lymph # (Auto) Seg Neuts % (Manual) Lymphocytes % (Manual) Seg Neutrophils # Seg Neutrophils # Man Lymphocytes # (Manual) D-Dimer ABG pH 7.341 L POC ABG pCO2 POC ABG pO2 133.0 H ABG pO2 56.5 L ABG HCO3 29.7 H ABG O2 Saturation 89.3 L ABG Base Excess ABG Hemoglobin 11.0 L ABG Sodium ABG Potassium ABG Chloride ABG Glucose 207 H Oxyhemoglobin 87.7 L Chloride Carbon Dioxide BUN Creatinine Glucose POC Glucose 190 H Calcium Ferritin Lactate Dehydrogenase C-Reactive Protein Total Protein Albumin Arterial Blood Glucose 207 H Arterial Blood Ionized Calcium 4.5 L SARS-CoV-2 IgG Ab 07/14/20 07/14/20 07/14/20 05:54 11:16 17:50 WBC RBC Hgb Lymph % (Auto) Lymph # (Auto) Seg Neuts % (Manual) Lymphocytes % (Manual) Seg Neutrophils # Seg Neutrophils # Man Lymphocytes # (Manual) D-Dimer ABG pH POC ABG pCO2 POC ABG pO2 ABG pO2 ABG HCO3 ABG O2 Saturation ABG Base Excess ABG Hemoglobin ABG Sodium ABG Potassium ABG Chloride ABG Glucose Oxyhemoglobin Chloride Carbon Dioxide BUN Creatinine Glucose POC Glucose 206 H 196 H 205 H Calcium Ferritin Lactate Dehydrogenase C-Reactive Protein Total Protein Albumin Arterial Blood Glucose Arterial Blood Ionized Calcium SARS-CoV-2 IgG Ab 07/14/20 07/15/20 07/15/20 23:28 03:16 06:12 WBC RBC Hgb Lymph % (Auto) Lymph # (Auto) Seg Neuts % (Manual) Lymphocytes % (Manual) Seg Neutrophils # Seg Neutrophils # Man Lymphocytes # (Manual) D-Dimer ABG pH POC ABG pCO2 49.2 H POC ABG pO2 120.3 H ABG pO2 ABG HCO3 ABG O2 Saturation ABG Base Excess ABG Hemoglobin 9.5 L ABG Sodium ABG Potassium ABG Chloride ABG Glucose 148 H Oxyhemoglobin Chloride Carbon Dioxide BUN Creatinine Glucose POC Glucose 160 H 178 H Calcium Ferritin Lactate Dehydrogenase C-Reactive Protein Total Protein Albumin Arterial Blood Glucose 148 H Arterial Blood Ionized Calcium SARS-CoV-2 IgG Ab 07/15/20 07/15/20 07/15/20 09:00 12:32 14:30 WBC RBC Hgb Lymph % (Auto) Lymph # (Auto) Seg Neuts % (Manual) Lymphocytes % (Manual) Seg Neutrophils # Seg Neutrophils # Man Lymphocytes # (Manual) D-Dimer ABG pH POC ABG pCO2 POC ABG pO2 ABG pO2 ABG HCO3 ABG O2 Saturation ABG Base Excess ABG Hemoglobin ABG Sodium ABG Potassium ABG Chloride ABG Glucose Oxyhemoglobin Chloride Carbon Dioxide BUN Creatinine Glucose POC Glucose 173 H Calcium Ferritin Lactate Dehydrogenase 531 H C-Reactive Protein Total Protein Albumin Arterial Blood Glucose Arterial Blood Ionized Calcium SARS-CoV-2 IgG Ab Reactive A 07/15/20 07/15/20 07/16/20 18:24 23:35 04:03 WBC RBC Hgb Lymph % (Auto) Lymph # (Auto) Seg Neuts % (Manual) Lymphocytes % (Manual) Seg Neutrophils # Seg Neutrophils # Man Lymphocytes # (Manual) D-Dimer ABG pH POC ABG pCO2 POC ABG pO2 ABG pO2 72.7 L ABG HCO3 35.5 H ABG O2 Saturation ABG Base Excess 9.4 H ABG Hemoglobin 10.6 L ABG Sodium ABG Potassium ABG Chloride ABG Glucose Oxyhemoglobin 93.6 L Chloride Carbon Dioxide BUN Creatinine Glucose POC Glucose 173 H 181 H Calcium Ferritin Lactate Dehydrogenase C-Reactive Protein Total Protein Albumin Arterial Blood Glucose Arterial Blood Ionized Calcium SARS-CoV-2 IgG Ab 07/16/20 07/16/20 07/16/20 05:35 09:00 09:00 WBC 16.5 H RBC 3.59 L Hgb Lymph % (Auto) Lymph # (Auto) Seg Neuts % (Manual) 96.0 H Lymphocytes % (Manual) 3.0 L Seg Neutrophils # Seg Neutrophils # Man 15.8 H Lymphocytes # (Manual) 0.5 L D-Dimer ABG pH POC ABG pCO2 POC ABG pO2 ABG pO2 ABG HCO3 ABG O2 Saturation ABG Base Excess ABG Hemoglobin ABG Sodium ABG Potassium ABG Chloride ABG Glucose Oxyhemoglobin Chloride Carbon Dioxide 39 H D BUN 25 H Creatinine 0.4 L Glucose 167 H POC Glucose 129 H Calcium 8.3 L Ferritin Lactate Dehydrogenase C-Reactive Protein Total Protein Albumin Arterial Blood Glucose Arterial Blood Ionized Calcium SARS-CoV-2 IgG Ab 07/16/20 07/16/20 07/17/20 12:32 18:28 00:09 WBC RBC Hgb Lymph % (Auto) Lymph # (Auto) Seg Neuts % (Manual) Lymphocytes % (Manual) Seg Neutrophils # Seg Neutrophils # Man Lymphocytes # (Manual) D-Dimer ABG pH POC ABG pCO2 POC ABG pO2 ABG pO2 ABG HCO3 ABG O2 Saturation ABG Base Excess ABG Hemoglobin ABG Sodium ABG Potassium ABG Chloride ABG Glucose Oxyhemoglobin Chloride Carbon Dioxide BUN Creatinine Glucose POC Glucose 187 H 174 H 184 H Calcium Ferritin Lactate Dehydrogenase C-Reactive Protein Total Protein Albumin Arterial Blood Glucose Arterial Blood Ionized Calcium SARS-CoV-2 IgG Ab 07/17/20 07/17/2020 04:30 05:47 13:03 WBC RBC Hgb Lymph % (Auto) Lymph # (Auto) Seg Neuts % (Manual) Lymphocytes % (Manual) Seg Neutrophils # Seg Neutrophils # Man Lymphocytes # (Manual) D-Dimer ABG pH POC ABG pCO2 POC ABG pO2 ABG pO2 ABG HCO3 38.1 H ABG O2 Saturation ABG Base Excess 11.3 H ABG Hemoglobin 10.5 L ABG Sodium ABG Potassium ABG Chloride ABG Glucose Oxyhemoglobin Chloride Carbon Dioxide BUN Creatinine Glucose POC Glucose 135 H 210 H Calcium Ferritin Lactate Dehydrogenase C-Reactive Protein Total Protein Albumin Arterial Blood Glucose Arterial Blood Ionized Calcium SARS-CoV-2 IgG Ab 07/17/20 07/17/20 07/18/20 16:50 23:39 04:01 WBC RBC Hgb Lymph % (Auto) Lymph # (Auto) Seg Neuts % (Manual) Lymphocytes % (Manual) Seg Neutrophils # Seg Neutrophils # Man Lymphocytes # (Manual) D-Dimer ABG pH POC ABG pCO2 56.8 H POC ABG pO2 61.9 L ABG pO2 ABG HCO3 ABG O2 Saturation ABG Base Excess ABG Hemoglobin 11.7 L ABG Sodium 134.2 L ABG Potassium 4.7 H ABG Chloride 97.0 L ABG Glucose 173 H Oxyhemoglobin Chloride Carbon Dioxide BUN Creatinine Glucose POC Glucose 193 H 163 H Calcium Ferritin Lactate Dehydrogenase C-Reactive Protein Total Protein Albumin Arterial Blood Glucose 173 H Arterial Blood Ionized Calcium SARS-CoV-2 IgG Ab 07/18/20 07/18/20 07/18/20 05:41 12:03 17:26 WBC RBC Hgb Lymph % (Auto) Lymph # (Auto) Seg Neuts % (Manual) Lymphocytes % (Manual) Seg Neutrophils # Seg Neutrophils # Man Lymphocytes # (Manual) D-Dimer ABG pH POC ABG pCO2 POC ABG pO2 ABG pO2 ABG HCO3 ABG O2 Saturation ABG Base Excess ABG Hemoglobin ABG Sodium ABG Potassium ABG Chloride ABG Glucose Oxyhemoglobin Chloride Carbon Dioxide BUN Creatinine Glucose POC Glucose 153 H 177 H 160 H Calcium Ferritin Lactate Dehydrogenase C-Reactive Protein Total Protein Albumin Arterial Blood Glucose Arterial Blood Ionized Calcium SARS-CoV-2 IgG Ab 07/18/20 07/19/20 07/19/20 23:58 04:15 05:05 WBC RBC Hgb Lymph % (Auto) Lymph # (Auto) Seg Neuts % (Manual) Lymphocytes % (Manual) Seg Neutrophils # Seg Neutrophils # Man Lymphocytes # (Manual) D-Dimer ABG pH 7.465 H POC ABG pCO2 49.1 H POC ABG pO2 49.4 L ABG pO2 ABG HCO3 ABG O2 Saturation ABG Base Excess ABG Hemoglobin 11.6 L ABG Sodium 132.3 L ABG Potassium ABG Chloride 97.0 L ABG Glucose 148 H Oxyhemoglobin Chloride Carbon Dioxide BUN Creatinine Glucose POC Glucose 144 H 117 H Calcium Ferritin Lactate Dehydrogenase C-Reactive Protein Total Protein Albumin Arterial Blood Glucose 148 H Arterial Blood Ionized Calcium SARS-CoV-2 IgG Ab 07/19/20 07/19/20 08:30 08:30 WBC 17.2 H RBC 3.59 L Hgb Lymph % (Auto) Lymph # (Auto) Seg Neuts % (Manual) Lymphocytes % (Manual) Seg Neutrophils # Seg Neutrophils # Man Lymphocytes # (Manual) D-Dimer ABG pH POC ABG pCO2 POC ABG pO2 ABG pO2 ABG HCO3 ABG O2 Saturation ABG Base Excess ABG Hemoglobin ABG Sodium ABG Potassium ABG Chloride ABG Glucose Oxyhemoglobin Chloride 95.7 L Carbon Dioxide 37 H BUN 20 H Creatinine 0.4 L Glucose 125 H POC Glucose Calcium 8.1 L Ferritin Lactate Dehydrogenase C-Reactive Protein Total Protein Albumin Arterial Blood Glucose Arterial Blood Ionized Calcium SARS-CoV-2 IgG Ab Chest x-ray: pending Allied health notes reviewed: nursing
[2020-07-19] MEDS ORDERED: ROCURONIUM 50 MG/5 ML INJ IV ONE ×2 (12:35→13:08)
--- NOTE | 2020-07-19 14:26 | XRay Report ---
CHEST 1 VIEW 07/19/2020 1:20 PM INDICATION / CLINICAL INFORMATION: re-intubation. COMPARISON: Chest one view from 07/18/2020. FINDINGS: SUPPORT DEVICES: An ET tube terminates 2.4 cm above the hali. Otherwise unchanged. HEART / MEDIASTINUM: Stable. LUNGS / PLEURA: Generalized bilateral airspace opacities have slightly improved. No large pleural eff usion. No pneumothorax. ADDITIONAL FINDINGS: No significant additional findings. IMPRESSION: ET tube placement as above with slightly improved aeration of the lungs. Signer Name: Rolo Balderas MD Signed: 07/19/2020 2:22 PM Workstation Name: [id number]
--- NOTE | 2020-07-19 15:42 | XRay Report ---
ABDOMEN 1 VIEW 07/19/2020 1:20 PM INDICATION / CLINICAL INFORMATION: Confirmation of feeding tube. COMPARISON: 07/08/20 FINDINGS: TUBES / LINES: Esophagogastric tube is present in the distal stomach. BOWEL GAS PATTERN: No significant abnormality. FREE AIR / EXTRALUMINAL GAS: None. ADDITIONAL FINDINGS: No significant additional findings. IMPRESSION: 1. Esophagogastric tube in expected position. Signer Name: Yaneth Flores MD Signed: 07/19/2020 3:38 PM Workstation Name: [id number]
--- NOTE | 2020-07-19 15:53 | Progress Note ---
Assessment and Plan --Acute asthma exacerbation on iv steroid Oxygen supplementation as needed Continue montelukast Monitor oxygen saturations closely -- COVID-19 Tested positive for COVID-19 in [facility] iv steroid, s/p Remdesivir for 5 days s/p convalescent plasma transfusion Procalcitonin <0.05 ID on board follow ferritin, ldh, d-dimer levels -- Acute hypoxic respiratory failure Now intubated on 07/09/20 overnight From COVID-19 and asthma exacerbation Continue steroids Continue oxygen supplementation -- GERD (gastroesophageal reflux disease) cont Pantoprazole --SLE (systemic lupus erythematosus related syndrome) Continue home medications-hydroxychloroquine -- DVT prophylaxis Lovenox 30 mg twice daily -- Full code status The high probability of a clinically significant, sudden or life threatening deterioration of the [[facility], respiratory, [employer] MACHINE [employer]PERATOR] system(s) required my full and direct attention, intervention and personal management. The aggregate critical care time was [33] minutes. This time is in addition to time spent performing reported procedures but includes the following: [x] Data Review and interpretation [x] Patient assessment and monitoring of vital signs [x] Documentation [x] Medication orders and management brief History: 50-year-old female with a past medical history of asthma, hypertension, and lupus complains of generalized body weakness, fever and shortness of breath. Patient states the symptoms started right after she was discharged from [facility] on 07/05. She has associated wheezing, fever, cough and she has been using her inhalers with no significant effect. She also has associated diarrhea. Of note, she was hospitalized here in [facility] on 06/28 for asthma exacerbation and had a negative Covid test during the admission. She was treated and discharged. She presented to [facility] for further evaluation after discharge from here and over there, she was found to have positive COVID-19 test and she was placed on steroids and subsequently discharged on Eliquis prophylaxis for DVT. She states that she did not receive remdesivir during the admission. She was discharged from [facility] on 07/05. She went home and felt worse. She said that she passed out about 2 times. Due to persistent symptoms, she called EMS who brought her to [facility] for further evaluation. Daily course: 07/07. Patient seen and examined at bedside this morning. Patient is wheezing and slightly short of breath. Change steroids to Solu-Medrol 60 every 6. Added formoterol and budesonide. ID evaluation pending. Started patient on remdesivir as she is short of breath. 07/07: Placed on BIPAP this AM. Will need pulm evaluation. Solumedrol 60mg q6. STAT blood gas ordered. She will be transferred to [facility]. 07/08: Patient took oxygen off and attempts to go to the bathroom and subsequently became hypoxemic with sats down into the low 80s. Patient became weak short of breath. After that time patient had persistent coughing and cannot maintain sats until nonrebreather was placed. Patient is transferred to the ICU unit and monitored for respiratory failure possibly requiring intubation. 07/09: ID recommended for convalescent plasma, ordered. Patient intubated overnight. Continue to monitor clinically, scheduled lab, follow inflammatory markers 07/10: Wait for convalescent plasma transfusion, wean off from ventilator as tolerated 07/11: Called patient's daughter and updated. Continue to wean off vent as tolerated, continue tube feeding, monitor vital sign CBC BMP daily. 07/12: remains intubated and sedated. follow inflammatory markers - wean off vent as tolerated 07/13: wean off vent as tolerated, cxr in the am. reviewed vitals 07/14: remains intubated, has not received convalescent plasma yet. Reviewed vitals, tolerating tube feeding. Wean off vent per critical care as tolerated. 07/15: cont to provide supportive care, wean off vent as tolerated - difficult to wean off. 07/16: CXR findings improving, cont to wean off vent 07/17: Follow inflammatory markers, monitor off antibiotics. Wean off vent per pulmonary as tolerated 07/18: Wean off vent per pulmonary as tolerated,Follow inflammatory markers, monitor off antibiotics. 07/19: Wean off vent per pulmonary as tolerated,Follow inflammatory markers, monitor off antibiotics. SBT trial Subjective Date of service: 07/19/20 Principal diagnosis: Ac hypoxemic resp failure; PNA; COVID-19 infxn; SLE; Asthma exacerbation Interval history: Patient seen and examined Patient remains intubated on mechanical ventilation Discussed with RN at the bedside, on tube feeding Reviewed vitals, Objective - Exam Narrative Exam: GENERAL: well-developed obese -[place] female lying on bed intubated and sedated HEENT: Normocephalic. Atraumatic. No conjunctival congestion or icterus. Patient has moist mucous membranes. NECK: Supple. Trachea midline. ET tube in place, intubated with mechanical ventilation CHEST/LUNGS: Diffuse expiratory wheezes, coarse breath sound bilaterally HEART/CARDIOVASCULAR: Regular in rate and rhythm. S1 and S2 positive. ABDOMEN: Abdomen is soft, nontender. Patient has normal bowel sounds. SKIN: There is no rash. Warm and dry. NEURO: Sedated MUSCULOSKELETAL: No joint effusion or tenderness. EXTRIMITY: No edema, no cyanosis or clubbing. PSYCH: Unable to assess - Constitutional Vitals: Vital Signs - 12hr 07/19/20 07/19/20 07/19/20 04:01 04:30 04:31 Temperature Pulse Rate 88 72 74 Pulse Rate [ Bilateral Throughout] Pulse Rate [ From Monitor] Respiratory 26 H 24 Rate Respiratory Rate [Bilateral Throughout] Blood Pressure 128/76 112/58 112/58 O2 Sat by Pulse 84 94 94 Oximetry 07/19/20 07/19/20 07/19/20 05:01 05:31 06:01 Temperature Pulse Rate 78 74 81 Pulse Rate [ Bilateral Throughout] Pulse Rate [ From Monitor] Respiratory 22 16 20 Rate Respiratory Rate [Bilateral Throughout] Blood Pressure 112/58 109/46 106/59 O2 Sat by Pulse 92 98 100 Oximetry 07/19/20 07/19/20 07/19/20 06:30 07:00 07:30 Temperature Pulse Rate 72 74 73 Pulse Rate [ Bilateral Throughout] Pulse Rate [ From Monitor] Respiratory 17 21 20 Rate Respiratory Rate [Bilateral Throughout] Blood Pressure 103/53 110/53 111/49 O2 Sat by Pulse 100 100 100 Oximetry 07/19/20 07/19/20 07/19/20 07:51 08:00 08:30 Temperature 99.3 F Pulse Rate 79 96 H 71 Pulse Rate [ 85 Bilateral Throughout] Pulse Rate [ 96 H From Monitor] Respiratory 39 H 20 Rate Respiratory 24 Rate [Bilateral Throughout] Blood Pressure 111/49 126/65 99/52 O2 Sat by Pulse 100 100 100 Oximetry 07/19/20 07/19/20 07/19/20 09:00 09:30 10:00 Temperature Pulse Rate 76 80 84 Pulse Rate [ Bilateral Throughout] Pulse Rate [ From Monitor] Respiratory 19 20 17 Rate Respiratory Rate [Bilateral Throughout] Blood Pressure 101/51 108/53 110/53 O2 Sat by Pulse 100 99 99 Oximetry 1107/19/20 07/19/20 10:30 11:00 11:30 Temperature Pulse Rate 98 H 89 85 Pulse Rate [ Bilateral Throughout] Pulse Rate [ From Monitor] Respiratory 25 H 19 23 Rate Respiratory Rate [Bilateral Throughout] Blood Pressure 106/61 100/55 111/53 O2 Sat by Pulse 99 99 99 Oximetry 07/19/20 07/19/20 07/19/20 12:00 12:30 13:01 Temperature Pulse Rate 94 H 106 H 91 H Pulse Rate [ Bilateral Throughout] Pulse Rate [ 94 H From Monitor] Respiratory 24 27 H 29 H Rate Respiratory Rate [Bilateral Throughout] Blood Pressure 103/64 110/65 142/77 O2 Sat by Pulse 99 98 97 Oximetry 07/19/20 07/19/20 07/19/20 13:30 14:00 14:30 Temperature Pulse Rate 94 H 76 79 Pulse Rate [ Bilateral Throughout] Pulse Rate [ From Monitor] Respiratory 24 20 17 Rate Respiratory Rate [Bilateral Throughout] Blood Pressure 110/54 98/39 88/37 O2 Sat by Pulse 90 97 96 Oximetry 07/19/20 15:00 Temperature Pulse Rate 74 Pulse Rate [ Bilateral Throughout] Pulse Rate [ From Monitor] Respiratory 18 Rate Respiratory Rate [Bilateral Throughout] Blood Pressure 87/41 O2 Sat by Pulse 96 Oximetry - Labs CBC & Chem 7: 07/19/20 08:30 07/19/20 08:30 Labs: Abnormal lab results 07/18/20 07/18/20 07/19/20 Range/Units 17:26 23:58 04:15 WBC (4.5-11.0) K/mm3 RBC (3.65-5.03) M/mm3 ABG pH 7.465 H (7.320-7.450) POC ABG pCO2 49.1 H (32.0-48.0) mmHg POC ABG pO2 49.4 L (83-108) mmHg ABG Hemoglobin 11.6 L (12.0-17.5) ABG Sodium 132.3 L (136.0-145.0) mmol/L ABG Chloride 97.0 L (98-107) mmol/L ABG Glucose 148 H (65-95) mg/dL Chloride (98-107) mmol/L Carbon Dioxide (22-30) mmol/L BUN (7-17) mg/dL Creatinine (0.6-1.2) mg/dL Glucose (65-100) mg/dL POC Glucose 160 H 144 H (70-105) mg/dL Calcium (8.4-10.2) mg/dL Arterial Blood Glucose 148 H (65-95) mg/dL 07/19/20 07/19/20 07/19/20 Range/Units 05:05 08:30 08:30 WBC 17.2 H (4.5-11.0) K/mm3 RBC 3.59 L (3.65-5.03) M/mm3 ABG pH (7.320-7.450) POC ABG pCO2 (32.0-48.0) mmHg POC ABG pO2 (83-108) mmHg ABG Hemoglobin (12.0-17.5) ABG Sodium (136.0-145.0) mmol/L ABG Chloride (98-107) mmol/L ABG Glucose (65-95) mg/dL Chloride 95.7 L (98-107) mmol/L Carbon Dioxide 37 H (22-30) mmol/L BUN 20 H (7-17) mg/dL Creatinine 0.4 L (0.6-1.2) mg/dL Glucose 125 H (65-100) mg/dL POC Glucose 117 H (70-105) mg/dL Calcium 8.1 L (8.4-10.2) mg/dL Arterial Blood Glucose (65-95) mg/dL 07/19/20 Range/Units 13:21 WBC (4.5-11.0) K/mm3 RBC (3.65-5.03) M/mm3 ABG pH (7.320-7.450) POC ABG pCO2 (32.0-48.0) mmHg POC ABG pO2 (83-108) mmHg ABG Hemoglobin (12.0-17.5) ABG Sodium (136.0-145.0) mmol/L ABG Chloride (98-107) mmol/L ABG Glucose (65-95) mg/dL Chloride (98-107) mmol/L Carbon Dioxide (22-30) mmol/L BUN (7-17) mg/dL Creatinine (0.6-1.2) mg/dL Glucose (65-100) mg/dL POC Glucose 137 H (70-105) mg/dL Calcium (8.4-10.2) mg/dL Arterial Blood Glucose (65-95) mg/dL
[2020-07-19] MEDS: INSULIN GLARGINE 100 UNITS/ML SUB-Q SCH (17:37)
[2020-07-20] MEDS: MIDAZOLAM 100 MG in SODIUM CHLORIDE 0.9% 80 ML IV SCH (02:42)
[2020-07-20] MEDS: fentaNYL DRIP Premix 2,000 MCG/100 ML BAG IV SCH ×2 (03:43→12:58)
[2020-07-20] MEDS: INSULIN REGULAR, HUMAN 100 UNIT/ML 3ML VIAL SUB-Q SCH ×4 (06:06→17:41)
[2020-07-20] MEDS: methylPREDNISolone Sod Succinate 125 MG/2 ML INJ IV SCH ×3 (06:06→17:40)
[2020-07-20] MEDS: BUDESONIDE 0.5 MG/2 ML NEBU IH SCH ×2 (08:37→19:39)
[2020-07-20] MEDS: ARFORMOTEROL 15 MCG/2 ML NEBU IH SCH ×2 (08:37→19:39)
[2020-07-20] MEDS: ALBUTEROL 2.5 MG/3 ML NEBU IH SCH ×3 (08:37→19:39)
[2020-07-20] MEDS: QUEtiapine 200 MG TAB PO SCH ×2 (10:03→21:20)
[2020-07-20] MEDS: HYDROXYCHLOROQUINE 200 MG TAB PO SCH (10:03)
[2020-07-20] MEDS: ASPIRIN 81 MG TAB CHEW PO SCH (10:03)
[2020-07-20] MEDS: ASCORBIC ACID 500 MG TAB PO SCH ×2 (10:03→21:20)
[2020-07-20] MEDS: ZINC SULFATE 220 MG CAP PO SCH ×2 (10:03→21:20)
[2020-07-20] MEDS: DOCUSATE SODIUM 100 MG/10 ML ORAL LIQD PO SCH ×2 (10:04→21:20)
[2020-07-20] MEDS: ENOXAPARIN 30 MG/0.3 ML INJ SUB-Q SCH ×2 (10:04→21:19)
[2020-07-20] MEDS: VENLAFAXINE 37.5 MG TAB PO SCH (10:04)
[2020-07-20] MEDS: LANSOPRAZOLE 30 MG SOLUTAB FEEDTUBE SCH (10:05)
--- NOTE | 2020-07-20 12:23 | Progress Note ---
Assessment and Plan 50-year-old female with CHF, asthma, hypertension, lupus was admitted to the hospital with complaints of fever, shortness of breath. Of note, she was seen last week due to an asthma exacerbation when her SARS-CoV-2 PCR and IgG were both negative. She was treated with steroids. She reportedly then went to [facility] and tested positive for COVID-19 and was discharged from the hospital on 07/05/2020 readmitted here with: Acute hypoxemic respiratory failure, now on MVS Bilateral pneumonia, left greater than right lungs. COVID-19 infection-SEVERE/CRITICAL . History of congestive heart failure. History of lupus erythematosus. Leukocytosis. Tobacco use disorder. Acute asthma exacerbation. History of hypertension. Obesity -Daily ABG for now -CXR as clinically indicated. -Would benefit from proning, but currently too awake and alert to safely prone. Will increase Seroquel to 300mg BID while monitoring for arrhythmias and QTc - continue airborne and contact isolation per facility protocol -Has completed antibitoic course, monitor - continue systemic steroids for Asthma / severe COVID infection - continue Daily SAT and SBT assessment as tolerated - VAP bundle addressed - continue lung protective strategies - continue bronchodilators with pulmonary hygiene per RT - wean per pulmonary driven protocols otherwise - accuchecks with glycemic control per SSI (While critically ill target blood glucose of 140-180 mg/dL; avoid hypoglycemia) - sedation prn for target RASS -1 to -2 - avoid nephrotoxins, renally dose all medications - continue to avoid benzodiazepines, reduce the possibility of delirium - prn analgesia per CPOT score - Maintenance of sleep-wake cycle, avoid delirium - continue enteral nutritional support at goal rate as tolerated - G.I. & VTE prophylaxis - PT/OT/ROM exercises - continue mobility protocols for pressure ulcer prophylaxis - Monitor hemodynamics closely - continue other care per attending / other consultants - discharge planning ongoing concurrently COVID SPECIFIC INTERVENTIONS On steroids Prophylactic anticoagulation based on d-dimer s/p Remdesivir s/p Convalescent plasma, was IgG negative Zinc & Vit C supplementation CONDITION: CRITICAL PROGNOSIS: GUARDED CODE STATUS: FULL CODE The high probability of a clinically significant, sudden or life-threatening deterioration of the [respiratory, cardiovascular & neurologic] system(s) required my full and direct attention, intervention and personal management. The aggregate critical care time was [35] minutes without overlap. Time includes spent on; [x] Data Review and interpretation [x] Patient assessment and monitoring of vital signs [x] Documentation [x] Medication orders and management Subjective Date of service: 07/20/20 Principal diagnosis: Ac hypoxemic resp failure; PNA; COVID-19 infxn; SLE; Asthma exacerbation Interval history: Patient is seen today for: Acute hypoxemic respiratory failure; Bilateral pneumonia; COVID-19 infection; H/O CHF; SLE; Acute asthma exacerbation. HTN; Obesity Seen and examined at bedside; 24hour events reviewed; nursing and respiratory care staff consulted; no adverse overnight events reported to me; resting peacefully in bed; remains on MVS; self-extubated yesterday and required re- intubation. Currently on AC-VC 16/450/+12/60% Midazolam, Fentanyl and Propofol. She is awake and interactive in spite of sedation. No dys-synchrony at this time. Mouthed "I am sorry" No N/V/F/C Objective Vital Signs - 12hr 07/20/20 07/20/20 07/20/20 00:30 01:00 01:30 Temperature Pulse Rate 71 67 62 Pulse Rate [ Bilateral Throughout] Pulse Rate [ From Monitor] Respiratory 18 19 18 Rate Respiratory Rate [Bilateral Throughout] Blood Pressure 102/50 105/48 99/52 O2 Sat by Pulse 94 94 97 Oximetry 07/20/20 07/20/20 07/20/20 02:00 02:30 02:57 Temperature 98.9 F Pulse Rate 63 59 L Pulse Rate [ Bilateral Throughout] Pulse Rate [ From Monitor] Respiratory 25 H 14 Rate Respiratory Rate [Bilateral Throughout] Blood Pressure 101/50 95/47 O2 Sat by Pulse 95 96 Oximetry 07/20/20 07/20/20 07/20/20 03:00 03:30 04:00 Temperature Pulse Rate 62 54 L 63 Pulse Rate [ Bilateral Throughout] Pulse Rate [ 63 From Monitor] Respiratory 19 17 19 Rate Respiratory Rate [Bilateral Throughout] Blood Pressure 98/51 96/58 100/55 O2 Sat by Pulse 96 98 95 Oximetry 07/20/20 07/20/20 07/20/20 04:30 05:00 05:31 Temperature Pulse Rate 57 L 69 67 Pulse Rate [ Bilateral Throughout] Pulse Rate [ From Monitor] Respiratory 17 21 17 Rate Respiratory Rate [Bilateral Throughout] Blood Pressure 100/52 95/49 108/64 O2 Sat by Pulse 95 95 97 Oximetry 07/20/20 07/20/20 07/20/20 06:00 06:30 07:00 Temperature Pulse Rate 59 L 70 66 Pulse Rate [ Bilateral Throughout] Pulse Rate [ From Monitor] Respiratory 19 18 16 Rate Respiratory Rate [Bilateral Throughout] Blood Pressure 106/61 106/55 106/58 O2 Sat by Pulse 97 99 93 Oximetry 07/20/20 07/20/20 08:37 11:58 Temperature Pulse Rate 73 66 Pulse Rate [ 76 Bilateral Throughout] Pulse Rate [ From Monitor] Respiratory Rate Respiratory 25 H Rate [Bilateral Throughout] Blood Pressure 102/52 108/60 O2 Sat by Pulse 99 94 Oximetry Constitutional: no acute distress, other (middle aged obese female with moderately increased respiratory effort at rest on MVS) Eyes: non-icteric ENT: oropharynx moist, other (ETT 7.5cm, 22cm YANET) Neck: supple, no lymphadenopathy, no JVD Effort: mildly labored Ascultation: Bilateral: diminished breath sounds, rhonchi (scant ) Cardiovascular: regular rate and rhythm, other (S1,S2) Gastrointestinal: normoactive bowel sounds, soft, non-tender, non-distended Integumentary: normal Extremities: no cyanosis, no edema, pulses normal, no ischemia or petechiae Neurologic: normal mental status, non-focal exam, pupils equal and round, motor strength normal and Psychiatric: mood appropriate, affect normal CBC and BMP: 07/19/20 08:30 07/19/20 08:30 ABG, PT/INR, D-dimer: ABG ABG pH 7.417 (7.320-7.450) 07/20/20 04:14 POC ABG pCO2 52.7 mmHg (32.0-48.0) H 07/20/20 04:14 ABG pCO2 62.9 mm Hg 07/17/20 04:30 POC ABG pO2 59.5 mmHg (83-108) L 07/20/20 04:14 ABG pO2 83.1 mm Hg (80.0-90.0) 07/17/20 04:30 POC ABG HCO3 33.2 07/20/20 04:14 ABG O2 Saturation 96.7 % (95.0-99.0) 07/17/20 04:30 PT/INR, D-dimer D-Dimer 826.36 ng/mlDDU (0-234) H 07/13/20 07:20 Abnormal lab findings: Abnormal Labs 07/06/20 07/06/20 07/07/20 05:24 17:16 04:50 WBC 13.5 H 12.7 H RBC Hgb Lymph % (Auto) Lymph # (Auto) Seg Neuts % (Manual) 86.0 H 87.0 H Lymphocytes % (Manual) 6.0 L 9.0 L Seg Neutrophils # Seg Neutrophils # Man 11.6 H 11.0 H Lymphocytes # (Manual) 0.8 L 1.1 L D-Dimer ABG pH POC ABG pCO2 POC ABG pO2 ABG pO2 ABG HCO3 ABG O2 Saturation ABG Base Excess ABG Hemoglobin ABG Sodium ABG Potassium ABG Chloride ABG Glucose Oxyhemoglobin Chloride Carbon Dioxide BUN Creatinine Glucose POC Glucose Calcium Ferritin Lactate Dehydrogenase 242 H C-Reactive Protein 7.30 H Total Protein Albumin Arterial Blood Glucose Arterial Blood Ionized Calcium SARS-CoV-2 IgG Ab 07/07/20 07/07/20 07/07/20 04:50 14:22 14:22 WBC RBC Hgb Lymph % (Auto) Lymph # (Auto) Seg Neuts % (Manual) Lymphocytes % (Manual) Seg Neutrophils # Seg Neutrophils # Man Lymphocytes # (Manual) D-Dimer ABG pH POC ABG pCO2 POC ABG pO2 ABG pO2 ABG HCO3 ABG O2 Saturation ABG Base Excess ABG Hemoglobin ABG Sodium ABG Potassium ABG Chloride ABG Glucose Oxyhemoglobin Chloride Carbon Dioxide BUN 18 H Creatinine Glucose 138 H POC Glucose Calcium Ferritin 228.2 H Lactate Dehydrogenase 277 H C-Reactive Protein Total Protein 5.9 L Albumin 3.4 L Arterial Blood Glucose Arterial Blood Ionized Calcium SARS-CoV-2 IgG Ab 07/08/20 07/08/20 07/08/20 11:18 12:57 16:13 WBC RBC Hgb Lymph % (Auto) Lymph # (Auto) Seg Neuts % (Manual) Lymphocytes % (Manual) Seg Neutrophils # Seg Neutrophils # Man Lymphocytes # (Manual) D-Dimer ABG pH POC ABG pCO2 POC ABG pO2 ABG pO2 39.3 L* ABG HCO3 ABG O2 Saturation 76.8 L ABG Base Excess ABG Hemoglobin ABG Sodium ABG Potassium ABG Chloride ABG Glucose Oxyhemoglobin 75.3 L Chloride Carbon Dioxide 20 L D BUN Creatinine Glucose 135 H POC Glucose 106 H Calcium 8.0 L Ferritin Lactate Dehydrogenase C-Reactive Protein Total Protein Albumin Arterial Blood Glucose Arterial Blood Ionized Calcium SARS-CoV-2 IgG Ab 07/08/20 07/08/20 07/09/20 17:04 18:45 04:00 WBC 15.6 H RBC Hgb Lymph % (Auto) 4.7 L Lymph # (Auto) 0.7 L Seg Neuts % (Manual) Lymphocytes % (Manual) Seg Neutrophils # 14.2 H Seg Neutrophils # Man Lymphocytes # (Manual) D-Dimer ABG pH POC ABG pCO2 POC ABG pO2 ABG pO2 181.8 H ABG HCO3 ABG O2 Saturation 99.1 H ABG Base Excess ABG Hemoglobin 11.4 L ABG Sodium ABG Potassium ABG Chloride ABG Glucose Oxyhemoglobin Chloride Carbon Dioxide BUN Creatinine Glucose POC Glucose 117 H Calcium Ferritin Lactate Dehydrogenase C-Reactive Protein Total Protein Albumin Arterial Blood Glucose Arterial Blood Ionized Calcium SARS-CoV-2 IgG Ab 07/09/20 07/09/20 07/09/20 04:00 04:00 04:49 WBC RBC Hgb Lymph % (Auto) Lymph # (Auto) Seg Neuts % (Manual) Lymphocytes % (Manual) Seg Neutrophils # Seg Neutrophils # Man Lymphocytes # (Manual) D-Dimer ABG pH POC ABG pCO2 POC ABG pO2 ABG pO2 ABG HCO3 26.2 H ABG O2 Saturation ABG Base Excess ABG Hemoglobin 11.2 L ABG Sodium ABG Potassium ABG Chloride ABG Glucose Oxyhemoglobin 94.9 L Chloride Carbon Dioxide BUN Creatinine Glucose 158 H POC Glucose Calcium 8.2 L Ferritin 320.0 H Lactate Dehydrogenase 391 H C-Reactive Protein 9.50 H Total Protein 5.9 L Albumin 3.2 L Arterial Blood Glucose Arterial Blood Ionized Calcium SARS-CoV-2 IgG Ab 07/09/20 07/09/20 07/09/20 11:56 17:49 23:39 WBC RBC Hgb Lymph % (Auto) Lymph # (Auto) Seg Neuts % (Manual) Lymphocytes % (Manual) Seg Neutrophils # Seg Neutrophils # Man Lymphocytes # (Manual) D-Dimer ABG pH POC ABG pCO2 POC ABG pO2 ABG pO2 ABG HCO3 ABG O2 Saturation ABG Base Excess ABG Hemoglobin ABG Sodium ABG Potassium ABG Chloride ABG Glucose Oxyhemoglobin Chloride Carbon Dioxide BUN Creatinine Glucose POC Glucose 156 H 119 H 145 H Calcium Ferritin Lactate Dehydrogenase C-Reactive Protein Total Protein Albumin Arterial Blood Glucose Arterial Blood Ionized Calcium SARS-CoV-2 IgG Ab 07/10/20 07/10/20 07/10/20 03:32 05:26 11:22 WBC RBC Hgb Lymph % (Auto) Lymph # (Auto) Seg Neuts % (Manual) Lymphocytes % (Manual) Seg Neutrophils # Seg Neutrophils # Man Lymphocytes # (Manual) D-Dimer ABG pH POC ABG pCO2 POC ABG pO2 ABG pO2 75.7 L ABG HCO3 27.5 H ABG O2 Saturation ABG Base Excess ABG Hemoglobin 9.3 L ABG Sodium ABG Potassium ABG Chloride ABG Glucose Oxyhemoglobin 94.7 L Chloride Carbon Dioxide BUN Creatinine Glucose POC Glucose 156 H 148 H Calcium Ferritin Lactate Dehydrogenase C-Reactive Protein Total Protein Albumin Arterial Blood Glucose Arterial Blood Ionized Calcium SARS-CoV-2 IgG Ab 07/10/20 07/10/20 07/10/20 12:10 12:10 18:20 WBC 14.1 H RBC 3.33 L Hgb 9.9 L Lymph % (Auto) Lymph # (Auto) Seg Neuts % (Manual) 89.0 H Lymphocytes % (Manual) 8.0 L Seg Neutrophils # Seg Neutrophils # Man 12.5 H Lymphocytes # (Manual) 1.1 L D-Dimer ABG pH POC ABG pCO2 POC ABG pO2 ABG pO2 ABG HCO3 ABG O2 Saturation ABG Base Excess ABG Hemoglobin ABG Sodium ABG Potassium ABG Chloride ABG Glucose Oxyhemoglobin Chloride Carbon Dioxide BUN 21 H Creatinine Glucose 154 H POC Glucose 181 H Calcium 8.0 L Ferritin Lactate Dehydrogenase C-Reactive Protein Total Protein 5.4 L Albumin 3.0 L Arterial Blood Glucose Arterial Blood Ionized Calcium SARS-CoV-2 IgG Ab 07/10/20 07/11/20 07/11/20 23:51 04:05 05:43 WBC RBC Hgb Lymph % (Auto) Lymph # (Auto) Seg Neuts % (Manual) Lymphocytes % (Manual) Seg Neutrophils # Seg Neutrophils # Man Lymphocytes # (Manual) D-Dimer ABG pH 7.348 L POC ABG pCO2 POC ABG pO2 ABG pO2 93.6 H ABG HCO3 28.5 H ABG O2 Saturation ABG Base Excess ABG Hemoglobin 10.1 L ABG Sodium ABG Potassium ABG Chloride ABG Glucose Oxyhemoglobin Chloride Carbon Dioxide BUN Creatinine Glucose POC Glucose 116 H 132 H Calcium Ferritin Lactate Dehydrogenase C-Reactive Protein Total Protein Albumin Arterial Blood Glucose Arterial Blood Ionized Calcium SARS-CoV-2 IgG Ab 07/11/20 07/11/20 07/11/20 09:11 09:11 09:11 WBC 15.8 H RBC 3.44 L Hgb Lymph % (Auto) Lymph # (Auto) Seg Neuts % (Manual) 92.0 H Lymphocytes % (Manual) 4.0 L Seg Neutrophils # Seg Neutrophils # Man 14.5 H Lymphocytes # (Manual) 0.6 L D-Dimer 360.61 H ABG pH POC ABG pCO2 POC ABG pO2 ABG pO2 ABG HCO3 ABG O2 Saturation ABG Base Excess ABG Hemoglobin ABG Sodium ABG Potassium ABG Chloride ABG Glucose Oxyhemoglobin Chloride 107.1 H Carbon Dioxide BUN 22 H Creatinine Glucose 149 H POC Glucose Calcium 7.8 L Ferritin Lactate Dehydrogenase 483 H C-Reactive Protein 2.30 H Total Protein 4.9 L Albumin 3.0 L Arterial Blood Glucose Arterial Blood Ionized Calcium SARS-CoV-2 IgG Ab 07/11/20 07/11/20 07/11/20 09:11 12:16 17:55 WBC RBC Hgb Lymph % (Auto) Lymph # (Auto) Seg Neuts % (Manual) Lymphocytes % (Manual) Seg Neutrophils # Seg Neutrophils # Man Lymphocytes # (Manual) D-Dimer ABG pH POC ABG pCO2 POC ABG pO2 ABG pO2 ABG HCO3 ABG O2 Saturation ABG Base Excess ABG Hemoglobin ABG Sodium ABG Potassium ABG Chloride ABG Glucose Oxyhemoglobin Chloride Carbon Dioxide BUN Creatinine Glucose POC Glucose 157 H 166 H Calcium Ferritin 371.2 H Lactate Dehydrogenase C-Reactive Protein Total Protein Albumin Arterial Blood Glucose Arterial Blood Ionized Calcium SARS-CoV-2 IgG Ab 07/12/20 07/12/20 07/12/20 00:32 04:00 04:00 WBC RBC 3.52 L Hgb Lymph % (Auto) Lymph # (Auto) Seg Neuts % (Manual) 90.0 H Lymphocytes % (Manual) 4.0 L Seg Neutrophils # Seg Neutrophils # Man 9.5 H Lymphocytes # (Manual) 0.4 L D-Dimer ABG pH POC ABG pCO2 POC ABG pO2 ABG pO2 ABG HCO3 ABG O2 Saturation ABG Base Excess ABG Hemoglobin ABG Sodium ABG Potassium ABG Chloride ABG Glucose Oxyhemoglobin Chloride Carbon Dioxide 31 H BUN 21 H Creatinine Glucose 175 H POC Glucose 178 H Calcium 8.0 L Ferritin Lactate Dehydrogenase C-Reactive Protein Total Protein 5.4 L Albumin 3.0 L Arterial Blood Glucose Arterial Blood Ionized Calcium SARS-CoV-2 IgG Ab 07/12/20 07/12/20 07/12/20 04:01 05:47 12:09 WBC RBC Hgb Lymph % (Auto) Lymph # (Auto) Seg Neuts % (Manual) Lymphocytes % (Manual) Seg Neutrophils # Seg Neutrophils # Man Lymphocytes # (Manual) D-Dimer ABG pH 7.456 H POC ABG pCO2 POC ABG pO2 ABG pO2 ABG HCO3 ABG O2 Saturation ABG Base Excess ABG Hemoglobin 10.6 L ABG Sodium ABG Potassium ABG Chloride ABG Glucose 177 H Oxyhemoglobin Chloride Carbon Dioxide BUN Creatinine Glucose POC Glucose 185 H 227 H Calcium Ferritin Lactate Dehydrogenase C-Reactive Protein Total Protein Albumin Arterial Blood Glucose 177 H Arterial Blood Ionized Calcium 4.5 L SARS-CoV-2 IgG Ab 07/12/20 07/12/20 07/13/20 17:34 23:57 05:06 WBC RBC Hgb Lymph % (Auto) Lymph # (Auto) Seg Neuts % (Manual) Lymphocytes % (Manual) Seg Neutrophils # Seg Neutrophils # Man Lymphocytes # (Manual) D-Dimer ABG pH POC ABG pCO2 POC ABG pO2 ABG pO2 ABG HCO3 ABG O2 Saturation ABG Base Excess ABG Hemoglobin ABG Sodium ABG Potassium ABG Chloride ABG Glucose Oxyhemoglobin Chloride Carbon Dioxide BUN Creatinine Glucose POC Glucose 202 H 163 H 166 H Calcium Ferritin Lactate Dehydrogenase C-Reactive Protein Total Protein Albumin Arterial Blood Glucose Arterial Blood Ionized Calcium SARS-CoV-2 IgG Ab 07/13/20 07/13/20 07/13/20 07:20 07:20 07:20 WBC 20.5 H RBC Hgb Lymph % (Auto) Lymph # (Auto) Seg Neuts % (Manual) 93.0 H Lymphocytes % (Manual) 3.0 L Seg Neutrophils # Seg Neutrophils # Man 19.1 H Lymphocytes # (Manual) 0.6 L D-Dimer 826.36 H ABG pH POC ABG pCO2 POC ABG pO2 ABG pO2 ABG HCO3 ABG O2 Saturation ABG Base Excess ABG Hemoglobin ABG Sodium ABG Potassium ABG Chloride ABG Glucose Oxyhemoglobin Chloride Carbon Dioxide 31 H BUN 25 H Creatinine Glucose 163 H POC Glucose Calcium 8.1 L Ferritin Lactate Dehydrogenase 512 H C-Reactive Protein 1.80 H Total Protein 5.8 L Albumin 3.2 L Arterial Blood Glucose Arterial Blood Ionized Calcium SARS-CoV-2 IgG Ab 07/13/20 07/13/20 07/13/20 07:20 11:37 17:20 WBC RBC Hgb Lymph % (Auto) Lymph # (Auto) Seg Neuts % (Manual) Lymphocytes % (Manual) Seg Neutrophils # Seg Neutrophils # Man Lymphocytes # (Manual) D-Dimer ABG pH POC ABG pCO2 POC ABG pO2 ABG pO2 ABG HCO3 ABG O2 Saturation ABG Base Excess ABG Hemoglobin ABG Sodium ABG Potassium ABG Chloride ABG Glucose Oxyhemoglobin Chloride Carbon Dioxide BUN Creatinine Glucose POC Glucose 232 H 210 H Calcium Ferritin 219.8 H Lactate Dehydrogenase C-Reactive Protein Total Protein Albumin Arterial Blood Glucose Arterial Blood Ionized Calcium SARS-CoV-2 IgG Ab 07/13/20 07/13/20 07/14/20 23:57 Unknown 05:22 WBC RBC Hgb Lymph % (Auto) Lymph # (Auto) Seg Neuts % (Manual) Lymphocytes % (Manual) Seg Neutrophils # Seg Neutrophils # Man Lymphocytes # (Manual) D-Dimer ABG pH 7.341 L POC ABG pCO2 POC ABG pO2 133.0 H ABG pO2 56.5 L ABG HCO3 29.7 H ABG O2 Saturation 89.3 L ABG Base Excess ABG Hemoglobin 11.0 L ABG Sodium ABG Potassium ABG Chloride ABG Glucose 207 H Oxyhemoglobin 87.7 L Chloride Carbon Dioxide BUN Creatinine Glucose POC Glucose 190 H Calcium Ferritin Lactate Dehydrogenase C-Reactive Protein Total Protein Albumin Arterial Blood Glucose 207 H Arterial Blood Ionized Calcium 4.5 L SARS-CoV-2 IgG Ab 07/14/20 07/14/20 07/14/20 05:54 11:16 17:50 WBC RBC Hgb Lymph % (Auto) Lymph # (Auto) Seg Neuts % (Manual) Lymphocytes % (Manual) Seg Neutrophils # Seg Neutrophils # Man Lymphocytes # (Manual) D-Dimer ABG pH POC ABG pCO2 POC ABG pO2 ABG pO2 ABG HCO3 ABG O2 Saturation ABG Base Excess ABG Hemoglobin ABG Sodium ABG Potassium ABG Chloride ABG Glucose Oxyhemoglobin Chloride Carbon Dioxide BUN Creatinine Glucose POC Glucose 206 H 196 H 205 H Calcium Ferritin Lactate Dehydrogenase C-Reactive Protein Total Protein Albumin Arterial Blood Glucose Arterial Blood Ionized Calcium SARS-CoV-2 IgG Ab 07/14/20 07/15/20 07/15/20 23:28 03:16 06:12 WBC RBC Hgb Lymph % (Auto) Lymph # (Auto) Seg Neuts % (Manual) Lymphocytes % (Manual) Seg Neutrophils # Seg Neutrophils # Man Lymphocytes # (Manual) D-Dimer ABG pH POC ABG pCO2 49.2 H POC ABG pO2 120.3 H ABG pO2 ABG HCO3 ABG O2 Saturation ABG Base Excess ABG Hemoglobin 9.5 L ABG Sodium ABG Potassium ABG Chloride ABG Glucose 148 H Oxyhemoglobin Chloride Carbon Dioxide BUN Creatinine Glucose POC Glucose 160 H 178 H Calcium Ferritin Lactate Dehydrogenase C-Reactive Protein Total Protein Albumin Arterial Blood Glucose 148 H Arterial Blood Ionized Calcium SARS-CoV-2 IgG Ab 07/15/20 07/15/20 07/15/20 09:00 12:32 14:30 WBC RBC Hgb Lymph % (Auto) Lymph # (Auto) Seg Neuts % (Manual) Lymphocytes % (Manual) Seg Neutrophils # Seg Neutrophils # Man Lymphocytes # (Manual) D-Dimer ABG pH POC ABG pCO2 POC ABG pO2 ABG pO2 ABG HCO3 ABG O2 Saturation ABG Base Excess ABG Hemoglobin ABG Sodium ABG Potassium ABG Chloride ABG Glucose Oxyhemoglobin Chloride Carbon Dioxide BUN Creatinine Glucose POC Glucose 173 H Calcium Ferritin Lactate Dehydrogenase 531 H C-Reactive Protein Total Protein Albumin Arterial Blood Glucose Arterial Blood Ionized Calcium SARS-CoV-2 IgG Ab Reactive A 07/15/20 07/15/20 07/16/20 18:24 23:35 04:03 WBC RBC Hgb Lymph % (Auto) Lymph # (Auto) Seg Neuts % (Manual) Lymphocytes % (Manual) Seg Neutrophils # Seg Neutrophils # Man Lymphocytes # (Manual) D-Dimer ABG pH POC ABG pCO2 POC ABG pO2 ABG pO2 72.7 L ABG HCO3 35.5 H ABG O2 Saturation ABG Base Excess 9.4 H ABG Hemoglobin 10.6 L ABG Sodium ABG Potassium ABG Chloride ABG Glucose Oxyhemoglobin 93.6 L Chloride Carbon Dioxide BUN Creatinine Glucose POC Glucose 173 H 181 H Calcium Ferritin Lactate Dehydrogenase C-Reactive Protein Total Protein Albumin Arterial Blood Glucose Arterial Blood Ionized Calcium SARS-CoV-2 IgG Ab 07/16/20 07/16/20 07/16/20 05:35 09:00 09:00 WBC 16.5 H RBC 3.59 L Hgb Lymph % (Auto) Lymph # (Auto) Seg Neuts % (Manual) 96.0 H Lymphocytes % (Manual) 3.0 L Seg Neutrophils # Seg Neutrophils # Man 15.8 H Lymphocytes # (Manual) 0.5 L D-Dimer ABG pH POC ABG pCO2 POC ABG pO2 ABG pO2 ABG HCO3 ABG O2 Saturation ABG Base Excess ABG Hemoglobin ABG Sodium ABG Potassium ABG Chloride ABG Glucose Oxyhemoglobin Chloride Carbon Dioxide 39 H D BUN 25 H Creatinine 0.4 L Glucose 167 H POC Glucose 129 H Calcium 8.3 L Ferritin Lactate Dehydrogenase C-Reactive Protein Total Protein Albumin Arterial Blood Glucose Arterial Blood Ionized Calcium SARS-CoV-2 IgG Ab 07/16/20 07/16/20 07/17/20 12:32 18:28 00:09 WBC RBC Hgb Lymph % (Auto) Lymph # (Auto) Seg Neuts % (Manual) Lymphocytes % (Manual) Seg Neutrophils # Seg Neutrophils # Man Lymphocytes # (Manual) D-Dimer ABG pH POC ABG pCO2 POC ABG pO2 ABG pO2 ABG HCO3 ABG O2 Saturation ABG Base Excess ABG Hemoglobin ABG Sodium ABG Potassium ABG Chloride ABG Glucose Oxyhemoglobin Chloride Carbon Dioxide BUN Creatinine Glucose POC Glucose 187 H 174 H 184 H Calcium Ferritin Lactate Dehydrogenase C-Reactive Protein Total Protein Albumin Arterial Blood Glucose Arterial Blood Ionized Calcium SARS-CoV-2 IgG Ab 07/17/20 07/17/20 07/17/20 04:30 05:47 13:03 WBC RBC Hgb Lymph % (Auto) Lymph # (Auto) Seg Neuts % (Manual) Lymphocytes % (Manual) Seg Neutrophils # Seg Neutrophils # Man Lymphocytes # (Manual) D-Dimer ABG pH POC ABG pCO2 POC ABG pO2 ABG pO2 ABG HCO3 38.1 H ABG O2 Saturation ABG Base Excess 11.3 H ABG Hemoglobin 10.5 L ABG Sodium ABG Potassium ABG Chloride ABG Glucose Oxyhemoglobin Chloride Carbon Dioxide BUN Creatinine Glucose POC Glucose 135 H 210 H Calcium Ferritin Lactate Dehydrogenase C-Reactive Protein Total Protein Albumin Arterial Blood Glucose Arterial Blood Ionized Calcium SARS-CoV-2 IgG Ab 07/17/20 07/17/20 07/18/20 16:50 23:39 04:01 WBC RBC Hgb Lymph % (Auto) Lymph # (Auto) Seg Neuts % (Manual) Lymphocytes % (Manual) Seg Neutrophils # Seg Neutrophils # Man Lymphocytes # (Manual) D-Dimer ABG pH POC ABG pCO2 56.8 H POC ABG pO2 61.9 L ABG pO2 ABG HCO3 ABG O2 Saturation ABG Base Excess ABG Hemoglobin 11.7 L ABG Sodium 134.2 L ABG Potassium 4.7 H ABG Chloride 97.0 L ABG Glucose 173 H Oxyhemoglobin Chloride Carbon Dioxide BUN Creatinine Glucose POC Glucose 193 H 163 H Calcium Ferritin Lactate Dehydrogenase C-Reactive Protein Total Protein Albumin Arterial Blood Glucose 173 H Arterial Blood Ionized Calcium SARS-CoV-2 IgG Ab 07/18/20 07/18/20 07/18/20 05:41 12:03 17:26 WBC RBC Hgb Lymph % (Auto) Lymph # (Auto) Seg Neuts % (Manual) Lymphocytes % (Manual) Seg Neutrophils # Seg Neutrophils # Man Lymphocytes # (Manual) D-Dimer ABG pH POC ABG pCO2 POC ABG pO2 ABG pO2 ABG HCO3 ABG O2 Saturation ABG Base Excess ABG Hemoglobin ABG Sodium ABG Potassium ABG Chloride ABG Glucose Oxyhemoglobin Chloride Carbon Dioxide BUN Creatinine Glucose POC Glucose 153 H 177 H 160 H Calcium Ferritin Lactate Dehydrogenase C-Reactive Protein Total Protein Albumin Arterial Blood Glucose Arterial Blood Ionized Calcium SARS-CoV-2 IgG Ab 07/18/20 07/19/20 07/19/20 23:58 04:15 05:05 WBC RBC Hgb Lymph % (Auto) Lymph # (Auto) Seg Neuts % (Manual) Lymphocytes % (Manual) Seg Neutrophils # Seg Neutrophils # Man Lymphocytes # (Manual) D-Dimer ABG pH 7.465 H POC ABG pCO2 49.1 H POC ABG pO2 49.4 L ABG pO2 ABG HCO3 ABG O2 Saturation ABG Base Excess ABG Hemoglobin 11.6 L ABG Sodium 132.3 L ABG Potassium ABG Chloride 97.0 L ABG Glucose 148 H Oxyhemoglobin Chloride Carbon Dioxide BUN Creatinine Glucose POC Glucose 144 H 117 H Calcium Ferritin Lactate Dehydrogenase C-Reactive Protein Total Protein Albumin Arterial Blood Glucose 148 H Arterial Blood Ionized Calcium SARS-CoV-2 IgG Ab 07/19/20 07/19/20 07/19/20 08:30 08:30 13:21 WBC 17.2 H RBC 3.59 L Hgb Lymph % (Auto) Lymph # (Auto) Seg Neuts % (Manual) Lymphocytes % (Manual) Seg Neutrophils # Seg Neutrophils # Man Lymphocytes # (Manual) D-Dimer ABG pH POC ABG pCO2 POC ABG pO2 ABG pO2 ABG HCO3 ABG O2 Saturation ABG Base Excess ABG Hemoglobin ABG Sodium ABG Potassium ABG Chloride ABG Glucose Oxyhemoglobin Chloride 95.7 L Carbon Dioxide 37 H BUN 20 H Creatinine 0.4 L Glucose 125 H POC Glucose 137 H Calcium 8.1 L Ferritin Lactate Dehydrogenase C-Reactive Protein Total Protein Albumin Arterial Blood Glucose Arterial Blood Ionized Calcium SARS-CoV-2 IgG Ab 07/19/20 07/20/20 07/20/20 17:28 00:25 04:14 WBC RBC Hgb Lymph % (Auto) Lymph # (Auto) Seg Neuts % (Manual) Lymphocytes % (Manual) Seg Neutrophils # Seg Neutrophils # Man Lymphocytes # (Manual) D-Dimer ABG pH POC ABG pCO2 52.7 H POC ABG pO2 59.5 L ABG pO2 ABG HCO3 ABG O2 Saturation ABG Base Excess ABG Hemoglobin 10.6 L ABG Sodium 134.4 L ABG Potassium ABG Chloride ABG Glucose 176 H Oxyhemoglobin Chloride Carbon Dioxide BUN Creatinine Glucose POC Glucose 174 H 188 H Calcium Ferritin Lactate Dehydrogenase C-Reactive Protein Total Protein Albumin Arterial Blood Glucose 176 H Arterial Blood Ionized Calcium 4.5 L SARS-CoV-2 IgG Ab 07/20/20 07/20/20 05:23 12:12 WBC RBC Hgb Lymph % (Auto) Lymph # (Auto) Seg Neuts % (Manual) Lymphocytes % (Manual) Seg Neutrophils # Seg Neutrophils # Man Lymphocytes # (Manual) D-Dimer ABG pH POC ABG pCO2 POC ABG pO2 ABG pO2 ABG HCO3 ABG O2 Saturation ABG Base Excess ABG Hemoglobin ABG Sodium ABG Potassium ABG Chloride ABG Glucose Oxyhemoglobin Chloride Carbon Dioxide BUN Creatinine Glucose POC Glucose 212 H 190 H Calcium Ferritin Lactate Dehydrogenase C-Reactive Protein Total Protein Albumin Arterial Blood Glucose Arterial Blood Ionized Calcium SARS-CoV-2 IgG Ab Chest x-ray: image reviewed Allied health notes reviewed: RT
--- NOTE | 2020-07-20 12:24 | Progress Note ---
Assessment and Plan --Acute asthma exacerbation on iv steroid Oxygen supplementation as needed Continue montelukast Monitor oxygen saturations closely -- COVID-19 Tested positive for COVID-19 in [facility] iv steroid, s/p Remdesivir for 5 days s/p convalescent plasma transfusion Procalcitonin <0.05 ID on board follow ferritin, ldh, d-dimer levels -- Acute hypoxic respiratory failure Now intubated on 07/09/20 overnight From COVID-19 and asthma exacerbation Continue steroids Continue oxygen supplementation -- GERD (gastroesophageal reflux disease) cont Pantoprazole --SLE (systemic lupus erythematosus related syndrome) Continue home medications-hydroxychloroquine -- DVT prophylaxis Lovenox 30 mg twice daily -- Full code status The high probability of a clinically significant, sudden or life threatening deterioration of the [[facility], respiratory, TRANSITION[facility] LIAISON] system(s) required my full and direct attention, intervention and personal management. The aggregate critical care time was [33] minutes. This time is in addition to time spent performing reported procedures but includes the following: [x] Data Review and interpretation [x] Patient assessment and monitoring of vital signs [x] Documentation [x] Medication orders and management brief History: 50-year-old female with a past medical history of asthma, hypertension, and lupus complains of generalized body weakness, fever and shortness of breath. Patient states the symptoms started right after she was discharged from [facility] on 07/05. She has associated wheezing, fever, cough and she has been using her inhalers with no significant effect. She also has associated diarrhea. Of note, she was hospitalized here in [facility] on 06/28 for asthma exacerbation and had a negative Covid test during the admission. She was treated and discharged. She presented to [facility] for further evaluation after discharge from here and over there, she was found to have positive COVID-19 test and she was placed on steroids and subsequently discharged on Eliquis prophylaxis for DVT. She states that she did not receive remdesivir during the admission. She was discharged from [facility] on 07/05. She went home and felt worse. She said that she passed out about 2 times. Due to persistent symptoms, she called EMS who brought her to [facility] for further evaluation. Daily course: 07/07. Patient seen and examined at bedside this morning. Patient is wheezing and slightly short of breath. Change steroids to Solu-Medrol 60 every 6. Added formoterol and budesonide. ID evaluation pending. Started patient on remdesivir as she is short of breath. 07/07: Placed on BIPAP this AM. Will need pulm evaluation. Solumedrol 60mg q6. STAT blood gas ordered. She will be transferred to [facility]. 07/08: Patient took oxygen off and attempts to go to the bathroom and subsequently became hypoxemic with sats down into the low 80s. Patient became weak short of breath. After that time patient had persistent coughing and cannot maintain sats until nonrebreather was placed. Patient is transferred to the ICU unit and monitored for respiratory failure possibly requiring intubation. 07/09: ID recommended for convalescent plasma, ordered. Patient intubated overnight. Continue to monitor clinically, scheduled lab, follow inflammatory markers 07/10: Wait for convalescent plasma transfusion, wean off from ventilator as tolerated 07/11: Called patient's daughter and updated. Continue to wean off vent as tolerated, continue tube feeding, monitor vital sign CBC BMP daily. 07/12: remains intubated and sedated. follow inflammatory markers - wean off vent as tolerated 07/13: wean off vent as tolerated, cxr in the am. reviewed vitals 07/14: remains intubated, has not received convalescent plasma yet. Reviewed vitals, tolerating tube feeding. Wean off vent per critical care as tolerated. 07/15: cont to provide supportive care, wean off vent as tolerated - difficult to wean off. 07/16: CXR findings improving, cont to wean off vent 07/17: Follow inflammatory markers, monitor off antibiotics. Wean off vent per pulmonary as tolerated 07/18: Wean off vent per pulmonary as tolerated,Follow inflammatory markers, monitor off antibiotics. 07/19: Wean off vent per pulmonary as tolerated,Follow inflammatory markers, monitor off antibiotics. SBT trial 07/20: Continue supportive care, wean off vent as tolerated. Follow inflammatory markers Subjective Date of service: 07/20/20 Principal diagnosis: Ac hypoxemic resp failure; PNA; COVID-19 infxn; SLE; Asthma exacerbation Interval history: Patient seen and examined Patient remains intubated on mechanical ventilation Discussed with RN at the bedside, on tube feeding Reviewed vitals, Objective - Exam Narrative Exam: GENERAL: well-developed obese -Indian female lying on bed intubated and sedated HEENT: Normocephalic. Atraumatic. No conjunctival congestion or icterus. Patient has moist mucous membranes. NECK: Supple. Trachea midline. ET tube in place, intubated with mechanical ventilation CHEST/LUNGS: Diffuse expiratory wheezes, coarse breath sound bilaterally HEART/CARDIOVASCULAR: Regular in rate and rhythm. S1 and S2 positive. ABDOMEN: Abdomen is soft, nontender. Patient has normal bowel sounds. SKIN: There is no rash. Warm and dry. NEURO: Sedated MUSCULOSKELETAL: No joint effusion or tenderness. EXTRIMITY: No edema, no cyanosis or clubbing. PSYCH: Unable to assess - Constitutional Vitals: Vital Signs - 12hr 07/20/20 07/20/20 07/20/20 00:30 01:00 01:30 Temperature Pulse Rate 71 67 62 Pulse Rate [ Bilateral Throughout] Pulse Rate [ From Monitor] Respiratory 18 19 18 Rate Respiratory Rate [Bilateral Throughout] Blood Pressure 102/50 105/48 99/52 O2 Sat by Pulse 94 94 97 Oximetry 07/20/20 07/20/20 07/20/20 02:00 02:30 02:57 Temperature 98.9 F Pulse Rate 63 59 L Pulse Rate [ Bilateral Throughout] Pulse Rate [ From Monitor] Respiratory 25 H 14 Rate Respiratory Rate [Bilateral Throughout] Blood Pressure 101/50 95/47 O2 Sat by Pulse 95 96 Oximetry 07/20/20 07/20/20 07/20/20 03:00 03:30 04:00 Temperature Pulse Rate 62 54 L 63 Pulse Rate [ Bilateral Throughout] Pulse Rate [ 63 From Monitor] Respiratory 19 17 19 Rate Respiratory Rate [Bilateral Throughout] Blood Pressure 98/51 96/58 100/55 O2 Sat by Pulse 96 98 95 Oximetry 07/20/20 07/20/20 07/20/20 04:30 05:00 05:31 Temperature Pulse Rate 57 L 69 67 Pulse Rate [ Bilateral Throughout] Pulse Rate [ From Monitor] Respiratory 17 21 17 Rate Respiratory Rate [Bilateral Throughout] Blood Pressure 100/52 95/49 108/64 O2 Sat by Pulse 95 95 97 Oximetry 07/20/20 07/20/20 07/20/20 06:00 06:30 07:00 Temperature Pulse Rate 59 L 70 66 Pulse Rate [ Bilateral Throughout] Pulse Rate [ From Monitor] Respiratory 19 18 16 Rate Respiratory Rate [Bilateral Throughout] Blood Pressure 106/61 106/55 106/58 O2 Sat by Pulse 97 99 93 Oximetry 07/20/20 07/20/20 08:37 11:58 Temperature Pulse Rate 73 66 Pulse Rate [ 76 Bilateral Throughout] Pulse Rate [ From Monitor] Respiratory Rate Respiratory 25 H Rate [Bilateral Throughout] Blood Pressure 102/52 108/60 O2 Sat by Pulse 99 94 Oximetry - Labs CBC & Chem 7: 07/19/20 08:30 07/19/20 08:30 Labs: Abnormal lab results 07/19/20 07/19/20 07/20/20 Range/Units 13:21 17:28 00:25 POC ABG pCO2 (32.0-48.0) mmHg POC ABG pO2 (83-108) mmHg ABG Hemoglobin (12.0-17.5) ABG Sodium (136.0-145.0) mmol/L ABG Glucose (65-95) mg/dL POC Glucose 137 H 174 H 188 H (70-105) mg/dL Arterial Blood Glucose (65-95) mg/dL Arterial Blood Ionized Calcium (4.6-5.3) mg/dL 07/20/20 07/20/20 07/20/20 Range/Units 04:14 05:23 12:12 POC ABG pCO2 52.7 H (32.0-48.0) mmHg POC ABG pO2 59.5 L (83-108) mmHg ABG Hemoglobin 10.6 L (12.0-17.5) ABG Sodium 134.4 L (136.0-145.0) mmol/L ABG Glucose 176 H (65-95) mg/dL POC Glucose 212 H 190 H (70-105) mg/dL Arterial Blood Glucose 176 H (65-95) mg/dL Arterial Blood Ionized Calcium 4.5 L (4.6-5.3) mg/dL
[2020-07-20] MEDS: INSULIN GLARGINE 100 UNITS/ML SUB-Q SCH (17:42)
[2020-07-20] MEDS: POLYETHYLENE GLYCOL 3350 17 GM POWDER PO SCH (21:20)
[2020-07-21] MEDS: fentaNYL DRIP Premix 2,000 MCG/100 ML BAG IV SCH ×2 (03:08→17:30)
[2020-07-21] MEDS: MIDAZOLAM 100 MG in SODIUM CHLORIDE 0.9% 80 ML IV SCH (03:19)
[2020-07-21] MEDS: methylPREDNISolone Sod Succinate 125 MG/2 ML INJ IV SCH ×3 (06:24→12:43)
[2020-07-21] MEDS: INSULIN REGULAR, HUMAN 100 UNIT/ML 3ML VIAL SUB-Q SCH ×4 (06:25→17:32)
[2020-07-21] MEDS: ARFORMOTEROL 15 MCG/2 ML NEBU IH SCH ×2 (08:55→20:06)
[2020-07-21] MEDS: ALBUTEROL 2.5 MG/3 ML NEBU IH SCH ×3 (08:55→20:06)
[2020-07-21] MEDS: BUDESONIDE 0.5 MG/2 ML NEBU IH SCH ×2 (08:55→20:06)
[2020-07-21] MEDS: VENLAFAXINE 37.5 MG TAB PO SCH (09:42)
[2020-07-21] MEDS: ZINC SULFATE 220 MG CAP PO SCH ×2 (09:42→21:24)
[2020-07-21] MEDS: ASCORBIC ACID 500 MG TAB PO SCH ×2 (09:42→21:24)
[2020-07-21] MEDS: HYDROXYCHLOROQUINE 200 MG TAB PO SCH (09:42)
[2020-07-21] MEDS: ASPIRIN 81 MG TAB CHEW PO SCH (09:42)
[2020-07-21] MEDS: QUEtiapine 200 MG TAB PO SCH (09:42)
[2020-07-21] MEDS: DOCUSATE SODIUM 100 MG/10 ML ORAL LIQD PO SCH ×2 (09:42→21:45)
[2020-07-21] MEDS: ENOXAPARIN 30 MG/0.3 ML INJ SUB-Q SCH ×2 (09:44→21:23)
[2020-07-21] MEDS: LANSOPRAZOLE 30 MG SOLUTAB FEEDTUBE SCH (09:45)
[2020-07-21] MEDS ORDERED: methylPREDNISolone Sod Succinate 125 MG/2 ML INJ IV SCH (12:55)
[2020-07-21] MEDS ORDERED: QUEtiapine 200 MG TAB PO SCH (12:56)
--- NOTE | 2020-07-21 12:57 | Progress Note ---
Assessment and Plan 50-year-old female with CHF, asthma, hypertension, lupus was admitted to the hospital with complaints of fever, shortness of breath. Of note, she was seen last week due to an asthma exacerbation when her SARS-CoV-2 PCR and IgG were both negative. She was treated with steroids. She reportedly then went to [place] and tested positive for COVID-19 and was discharged from the hospital on 07/05/2020 readmitted here with: Acute hypoxemic respiratory failure, now on MVS Bilateral pneumonia, left greater than right lungs. COVID-19 infection-SEVERE/CRITICAL . History of congestive heart failure. History of lupus erythematosus. Leukocytosis. Tobacco use disorder. Acute asthma exacerbation. History of hypertension. Obesity -Continue ABG -CXR as clinically indicated. Continue Seroquel to 300mg BID while monitoring for arrhythmias and QTc- no prologation of QTc - continue airborne and contact isolation per facility protocol -Continue to monitor off antibiotics - continue systemic steroids for Asthma / severe COVID infection- start slow taper. Patient is at high risk fro critical illness and steroid induced myopathy - continue Daily assessment for readiness to wean. Ventilatory demands are too high at this time - VAP bundle addressed, aspiration precatuions, HOB >40 - continue lung protective strategies - continue bronchodilators with pulmonary hygiene per RT - wean per pulmonary driven protocols otherwise - accuchecks with glycemic control per SSI (While critically ill target blood glucose of 140-180 mg/dL; avoid hypoglycemia) - sedation prn for target RASS -1 to -2 - avoid nephrotoxins, renally dose all medications - continue to avoid benzodiazepines, reduce the possibility of delirium - prn analgesia per CPOT score - Maintenance of sleep-wake cycle, avoid delirium - continue enteral nutritional support at goal rate as tolerated - G.I. & VTE prophylaxis( Famotidine and Enoxaparin) - PT/OT/ROM exercises - continue mobility protocols for pressure ulcer prophylaxis - Monitor hemodynamics closely - continue other care per attending / other consultants - discharge planning ongoing concurrently COVID SPECIFIC INTERVENTIONS -On steroids -Prophylactic anticoagulation based on d-dimer -s/p Remdesivir -s/p Convalescent plasma, was IgG negative -Zinc & Vit C supplementation -Contact and airborne isolation per facility protocols CONDITION: CRITICAL PROGNOSIS: GUARDED CODE STATUS: FULL CODE The high probability of a clinically significant, sudden or life-threatening deterioration of the [respiratory, cardiovascular & neurologic] system(s) required my full and direct attention, intervention and personal management. The aggregate critical care time was [35] minutes without overlap. Time includes spent on; [x] Data Review and interpretation [x] Patient assessment and monitoring of vital signs [x] Documentation [x] Medication orders and management Subjective Date of service: 07/21/20 Principal diagnosis: Ac hypoxemic resp failure; PNA; COVID-19 infxn; SLE; Asthma exacerbation Interval history: Patient is seen today for: Acute hypoxemic respiratory failure; Bilateral pneumonia; COVID-19 infection; H/O CHF; SLE; Acute asthma exacerbation. HTN; Obesity Seen and examined at bedside; 24hour events reviewed; nursing and respiratory care staff consulted; no adverse overnight events reported to me; resting peacefully in bed; remains on MVS; self-extubated 2 days ago and required re- intubation. Currently on AC-VC 16/450/+12/60% ABG 7.46/44.9/63.3/31.8 Midazolam, Fentanyl and Propofol. She is sedated No dys-synchrony at this time. No N/V/F/C Objective Vital Signs - 12hr 07/21/20 07/21/20 07/21/20 01:00 01:30 02:00 Temperature Pulse Rate 69 85 74 Pulse Rate [ Bilateral Throughout] Pulse Rate [ From Monitor] Respiratory 18 25 H 23 Rate Respiratory Rate [Bilateral Throughout] Blood Pressure 102/57 113/71 111/59 O2 Sat by Pulse 92 98 95 Oximetry 07/21/20 07/21/20 07/21/20 02:30 03:01 03:30 Temperature Pulse Rate 75 94 H 80 Pulse Rate [ Bilateral Throughout] Pulse Rate [ From Monitor] Respiratory 21 31 H 16 Rate Respiratory Rate [Bilateral Throughout] Blood Pressure 104/64 136/78 128/68 O2 Sat by Pulse 93 93 94 Oximetry 07/21/20 07/21/20 07/21/20 03:54 03:59 04:00 Temperature 99.2 F Pulse Rate 71 87 Pulse Rate [ Bilateral Throughout] Pulse Rate [ 82 From Monitor] Respiratory 24 Rate Respiratory Rate [Bilateral Throughout] Blood Pressure 116/63 116/72 O2 Sat by Pulse 96 95 Oximetry 07/21/20 07/21/20 07/21/20 04:30 05:00 05:30 Temperature Pulse Rate 82 81 79 Pulse Rate [ Bilateral Throughout] Pulse Rate [ From Monitor] Respiratory 27 H 26 H 26 H Rate Respiratory Rate [Bilateral Throughout] Blood Pressure 125/74 124/72 135/69 O2 Sat by Pulse 95 95 95 Oximetry 07/21/20 07/21/20 07/21/20 06:00 08:00 08:55 Temperature Pulse Rate 78 94 H Pulse Rate [ 86 Bilateral Throughout] Pulse Rate [ 87 From Monitor] Respiratory 26 H 25 H Rate Respiratory 24 Rate [Bilateral Throughout] Blood Pressure 121/71 147/85 O2 Sat by Pulse 94 92 91 Oximetry Constitutional: no acute distress, asleep, other (middle aged obese female with mildly increased respiratory effort at rest on MVS) Eyes: non-icteric ENT: oropharynx moist, other (ETT 7.5cm, 22cm YANET) Neck: supple, no lymphadenopathy, no JVD Effort: mildly labored Ascultation: Bilateral: diminished breath sounds, rhonchi (scant ) Percussion: Bilateral: not dull Cardiovascular: regular rate and rhythm, other (S1,S2) Gastrointestinal: normoactive bowel sounds, soft, non-tender, non-distended Integumentary: normal Extremities: no cyanosis, no edema, pulses normal, no ischemia or petechiae Neurologic: normal mental status, non-focal exam (moves extremities), pupils equal and round Psychiatric: other (sedated) CBC and BMP: 07/19/20 08:30 07/19/20 08:30 ABG, PT/INR, D-dimer: ABG ABG pH 7.468 (7.320-7.450) H 07/21/20 04:30 POC ABG pCO2 44.9 mmHg (32.0-48.0) 07/21/20 04:30 ABG pCO2 62.9 mm Hg 07/17/20 04:30 POC ABG pO2 63.3 mmHg (83-108) L 07/21/20 04:30 ABG pO2 83.1 mm Hg (80.0-90.0) 07/17/20 04:30 POC ABG HCO3 31.8 07/21/20 04:30 ABG O2 Saturation 96.7 % (95.0-99.0) 07/17/20 04:30 PT/INR, D-dimer D-Dimer 826.36 ng/mlDDU (0-234) H 07/13/20 07:20 Abnormal lab findings: Abnormal Labs 07/06/20 07/06/20 07/07/20 05:24 17:16 04:50 WBC 13.5 H 12.7 H RBC Hgb Lymph % (Auto) Lymph # (Auto) Seg Neuts % (Manual) 86.0 H 87.0 H Lymphocytes % (Manual) 6.0 L 9.0 L Seg Neutrophils # Seg Neutrophils # Man 11.6 H 11.0 H Lymphocytes # (Manual) 0.8 L 1.1 L D-Dimer ABG pH POC ABG pCO2 POC ABG pO2 ABG pO2 ABG HCO3 ABG O2 Saturation ABG Base Excess ABG Hemoglobin ABG Oxyhemoglobin ABG Sodium ABG Potassium ABG Chloride ABG Glucose Oxyhemoglobin Chloride Carbon Dioxide BUN Creatinine Glucose POC Glucose Calcium Ferritin Lactate Dehydrogenase 242 H C-Reactive Protein 7.30 H Total Protein Albumin Arterial Blood Glucose Arterial Blood Ionized Calcium SARS-CoV-2 IgG Ab 07/07/20 07/07/20 07/07/20 04:50 14:22 14:22 WBC RBC Hgb Lymph % (Auto) Lymph # (Auto) Seg Neuts % (Manual) Lymphocytes % (Manual) Seg Neutrophils # Seg Neutrophils # Man Lymphocytes # (Manual) D-Dimer ABG pH POC ABG pCO2 POC ABG pO2 ABG pO2 ABG HCO3 ABG O2 Saturation ABG Base Excess ABG Hemoglobin ABG Oxyhemoglobin ABG Sodium ABG Potassium ABG Chloride ABG Glucose Oxyhemoglobin Chloride Carbon Dioxide BUN 18 H Creatinine Glucose 138 H POC Glucose Calcium Ferritin 228.2 H Lactate Dehydrogenase 277 H C-Reactive Protein Total Protein 5.9 L Albumin 3.4 L Arterial Blood Glucose Arterial Blood Ionized Calcium SARS-CoV-2 IgG Ab 07/08/20 07/08/20 07/08/20 11:18 12:57 16:13 WBC RBC Hgb Lymph % (Auto) Lymph # (Auto) Seg Neuts % (Manual) Lymphocytes % (Manual) Seg Neutrophils # Seg Neutrophils # Man Lymphocytes # (Manual) D-Dimer ABG pH POC ABG pCO2 POC ABG pO2 ABG pO2 39.3 L* ABG HCO3 ABG O2 Saturation 76.8 L ABG Base Excess ABG Hemoglobin ABG Oxyhemoglobin ABG Sodium ABG Potassium ABG Chloride ABG Glucose Oxyhemoglobin 75.3 L Chloride Carbon Dioxide 20 L D BUN Creatinine Glucose 135 H POC Glucose 106 H Calcium 8.0 L Ferritin Lactate Dehydrogenase C-Reactive Protein Total Protein Albumin Arterial Blood Glucose Arterial Blood Ionized Calcium SARS-CoV-2 IgG Ab 07/08/20 07/08/20 07/09/20 17:04 18:45 04:00 WBC 15.6 H RBC Hgb Lymph % (Auto) 4.7 L Lymph # (Auto) 0.7 L Seg Neuts % (Manual) Lymphocytes % (Manual) Seg Neutrophils # 14.2 H Seg Neutrophils # Man Lymphocytes # (Manual) D-Dimer ABG pH POC ABG pCO2 POC ABG pO2 ABG pO2 181.8 H ABG HCO3 ABG O2 Saturation 99.1 H ABG Base Excess ABG Hemoglobin 11.4 L ABG Oxyhemoglobin ABG Sodium ABG Potassium ABG Chloride ABG Glucose Oxyhemoglobin Chloride Carbon Dioxide BUN Creatinine Glucose POC Glucose 117 H Calcium Ferritin Lactate Dehydrogenase C-Reactive Protein Total Protein Albumin Arterial Blood Glucose Arterial Blood Ionized Calcium SARS-CoV-2 IgG Ab 07/09/20 07/09/20 07/09/20 04:00 04:00 04:49 WBC RBC Hgb Lymph % (Auto) Lymph # (Auto) Seg Neuts % (Manual) Lymphocytes % (Manual) Seg Neutrophils # Seg Neutrophils # Man Lymphocytes # (Manual) D-Dimer ABG pH POC ABG pCO2 POC ABG pO2 ABG pO2 ABG HCO3 26.2 H ABG O2 Saturation ABG Base Excess ABG Hemoglobin 11.2 L ABG Oxyhemoglobin ABG Sodium ABG Potassium ABG Chloride ABG Glucose Oxyhemoglobin 94.9 L Chloride Carbon Dioxide BUN Creatinine Glucose 158 H POC Glucose Calcium 8.2 L Ferritin 320.0 H Lactate Dehydrogenase 391 H C-Reactive Protein 9.50 H Total Protein 5.9 L Albumin 3.2 L Arterial Blood Glucose Arterial Blood Ionized Calcium SARS-CoV-2 IgG Ab 07/09/20 07/09/20 07/09/20 11:56 17:49 23:39 WBC RBC Hgb Lymph % (Auto) Lymph # (Auto) Seg Neuts % (Manual) Lymphocytes % (Manual) Seg Neutrophils # Seg Neutrophils # Man Lymphocytes # (Manual) D-Dimer ABG pH POC ABG pCO2 POC ABG pO2 ABG pO2 ABG HCO3 ABG O2 Saturation ABG Base Excess ABG Hemoglobin ABG Oxyhemoglobin ABG Sodium ABG Potassium ABG Chloride ABG Glucose Oxyhemoglobin Chloride Carbon Dioxide BUN Creatinine Glucose POC Glucose 156 H 119 H 145 H Calcium Ferritin Lactate Dehydrogenase C-Reactive Protein Total Protein Albumin Arterial Blood Glucose Arterial Blood Ionized Calcium SARS-CoV-2 IgG Ab 07/10/20 07/10/20 07/10/20 03:32 05:26 11:22 WBC RBC Hgb Lymph % (Auto) Lymph # (Auto) Seg Neuts % (Manual) Lymphocytes % (Manual) Seg Neutrophils # Seg Neutrophils # Man Lymphocytes # (Manual) D-Dimer ABG pH POC ABG pCO2 POC ABG pO2 ABG pO2 75.7 L ABG HCO3 27.5 H ABG O2 Saturation ABG Base Excess ABG Hemoglobin 9.3 L ABG Oxyhemoglobin ABG Sodium ABG Potassium ABG Chloride ABG Glucose Oxyhemoglobin 94.7 L Chloride Carbon Dioxide BUN Creatinine Glucose POC Glucose 156 H 148 H Calcium Ferritin Lactate Dehydrogenase C-Reactive Protein Total Protein Albumin Arterial Blood Glucose Arterial Blood Ionized Calcium SARS-CoV-2 IgG Ab 07/10/20 07/10/20 07/10/20 12:10 12:10 18:20 WBC 14.1 H RBC 3.33 L Hgb 9.9 L Lymph % (Auto) Lymph # (Auto) Seg Neuts % (Manual) 89.0 H Lymphocytes % (Manual) 8.0 L Seg Neutrophils # Seg Neutrophils # Man 12.5 H Lymphocytes # (Manual) 1.1 L D-Dimer ABG pH POC ABG pCO2 POC ABG pO2 ABG pO2 ABG HCO3 ABG O2 Saturation ABG Base Excess ABG Hemoglobin ABG Oxyhemoglobin ABG Sodium ABG Potassium ABG Chloride ABG Glucose Oxyhemoglobin Chloride Carbon Dioxide BUN 21 H Creatinine Glucose 154 H POC Glucose 181 H Calcium 8.0 L Ferritin Lactate Dehydrogenase C-Reactive Protein Total Protein 5.4 L Albumin 3.0 L Arterial Blood Glucose Arterial Blood Ionized Calcium SARS-CoV-2 IgG Ab 07/10/20 07/11/20 07/11/20 23:51 04:05 05:43 WBC RBC Hgb Lymph % (Auto) Lymph # (Auto) Seg Neuts % (Manual) Lymphocytes % (Manual) Seg Neutrophils # Seg Neutrophils # Man Lymphocytes # (Manual) D-Dimer ABG pH 7.348 L POC ABG pCO2 POC ABG pO2 ABG pO2 93.6 H ABG HCO3 28.5 H ABG O2 Saturation ABG Base Excess ABG Hemoglobin 10.1 L ABG Oxyhemoglobin ABG Sodium ABG Potassium ABG Chloride ABG Glucose Oxyhemoglobin Chloride Carbon Dioxide BUN Creatinine Glucose POC Glucose 116 H 132 H Calcium Ferritin Lactate Dehydrogenase C-Reactive Protein Total Protein Albumin Arterial Blood Glucose Arterial Blood Ionized Calcium SARS-CoV-2 IgG Ab 07/11/20 07/11/20 07/11/20 09:11 09:11 09:11 WBC 15.8 H RBC 3.44 L Hgb Lymph % (Auto) Lymph # (Auto) Seg Neuts % (Manual) 92.0 H Lymphocytes % (Manual) 4.0 L Seg Neutrophils # Seg Neutrophils # Man 14.5 H Lymphocytes # (Manual) 0.6 L D-Dimer 360.61 H ABG pH POC ABG pCO2 POC ABG pO2 ABG pO2 ABG HCO3 ABG O2 Saturation ABG Base Excess ABG Hemoglobin ABG Oxyhemoglobin ABG Sodium ABG Potassium ABG Chloride ABG Glucose Oxyhemoglobin Chloride 107.1 H Carbon Dioxide BUN 22 H Creatinine Glucose 149 H POC Glucose Calcium 7.8 L Ferritin Lactate Dehydrogenase 483 H C-Reactive Protein 2.30 H Total Protein 4.9 L Albumin 3.0 L Arterial Blood Glucose Arterial Blood Ionized Calcium SARS-CoV-2 IgG Ab 07/11/20 07/11/20 07/11/20 09:11 12:16 17:55 WBC RBC Hgb Lymph % (Auto) Lymph # (Auto) Seg Neuts % (Manual) Lymphocytes % (Manual) Seg Neutrophils # Seg Neutrophils # Man Lymphocytes # (Manual) D-Dimer ABG pH POC ABG pCO2 POC ABG pO2 ABG pO2 ABG HCO3 ABG O2 Saturation ABG Base Excess ABG Hemoglobin ABG Oxyhemoglobin ABG Sodium ABG Potassium ABG Chloride ABG Glucose Oxyhemoglobin Chloride Carbon Dioxide BUN Creatinine Glucose POC Glucose 157 H 166 H Calcium Ferritin 371.2 H Lactate Dehydrogenase C-Reactive Protein Total Protein Albumin Arterial Blood Glucose Arterial Blood Ionized Calcium SARS-CoV-2 IgG Ab 07/12/20 07/12/20 07/12/20 00:32 04:00 04:00 WBC RBC 3.52 L Hgb Lymph % (Auto) Lymph # (Auto) Seg Neuts % (Manual) 90.0 H Lymphocytes % (Manual) 4.0 L Seg Neutrophils # Seg Neutrophils # Man 9.5 H Lymphocytes # (Manual) 0.4 L D-Dimer ABG pH POC ABG pCO2 POC ABG pO2 ABG pO2 ABG HCO3 ABG O2 Saturation ABG Base Excess ABG Hemoglobin ABG Oxyhemoglobin ABG Sodium ABG Potassium ABG Chloride ABG Glucose Oxyhemoglobin Chloride Carbon Dioxide 31 H BUN 21 H Creatinine Glucose 175 H POC Glucose 178 H Calcium 8.0 L Ferritin Lactate Dehydrogenase C-Reactive Protein Total Protein 5.4 L Albumin 3.0 L Arterial Blood Glucose Arterial Blood Ionized Calcium SARS-CoV-2 IgG Ab 07/12/20 07/12/20 07/12/20 04:01 05:47 12:09 WBC RBC Hgb Lymph % (Auto) Lymph # (Auto) Seg Neuts % (Manual) Lymphocytes % (Manual) Seg Neutrophils # Seg Neutrophils # Man Lymphocytes # (Manual) D-Dimer ABG pH 7.456 H POC ABG pCO2 POC ABG pO2 ABG pO2 ABG HCO3 ABG O2 Saturation ABG Base Excess ABG Hemoglobin 10.6 L ABG Oxyhemoglobin ABG Sodium ABG Potassium ABG Chloride ABG Glucose 177 H Oxyhemoglobin Chloride Carbon Dioxide BUN Creatinine Glucose POC Glucose 185 H 227 H Calcium Ferritin Lactate Dehydrogenase C-Reactive Protein Total Protein Albumin Arterial Blood Glucose 177 H Arterial Blood Ionized Calcium 4.5 L SARS-CoV-2 IgG Ab 07/12/20 07/12/20 07/13/20 17:34 23:57 05:06 WBC RBC Hgb Lymph % (Auto) Lymph # (Auto) Seg Neuts % (Manual) Lymphocytes % (Manual) Seg Neutrophils # Seg Neutrophils # Man Lymphocytes # (Manual) D-Dimer ABG pH POC ABG pCO2 POC ABG pO2 ABG pO2 ABG HCO3 ABG O2 Saturation ABG Base Excess ABG Hemoglobin ABG Oxyhemoglobin ABG Sodium ABG Potassium ABG Chloride ABG Glucose Oxyhemoglobin Chloride Carbon Dioxide BUN Creatinine Glucose POC Glucose 202 H 163 H 166 H Calcium Ferritin Lactate Dehydrogenase C-Reactive Protein Total Protein Albumin Arterial Blood Glucose Arterial Blood Ionized Calcium SARS-CoV-2 IgG Ab 07/13/20 07/13/20 07/13/20 07:20 07:20 07:20 WBC 20.5 H RBC Hgb Lymph % (Auto) Lymph # (Auto) Seg Neuts % (Manual) 93.0 H Lymphocytes % (Manual) 3.0 L Seg Neutrophils # Seg Neutrophils # Man 19.1 H Lymphocytes # (Manual) 0.6 L D-Dimer 826.36 H ABG pH POC ABG pCO2 POC ABG pO2 ABG pO2 ABG HCO3 ABG O2 Saturation ABG Base Excess ABG Hemoglobin ABG Oxyhemoglobin ABG Sodium ABG Potassium ABG Chloride ABG Glucose Oxyhemoglobin Chloride Carbon Dioxide 31 H BUN 25 H Creatinine Glucose 163 H POC Glucose Calcium 8.1 L Ferritin Lactate Dehydrogenase 512 H C-Reactive Protein 1.80 H Total Protein 5.8 L Albumin 3.2 L Arterial Blood Glucose Arterial Blood Ionized Calcium SARS-CoV-2 IgG Ab 07/13/20 07/13/20 07/13/20 07:20 11:37 17:20 WBC RBC Hgb Lymph % (Auto) Lymph # (Auto) Seg Neuts % (Manual) Lymphocytes % (Manual) Seg Neutrophils # Seg Neutrophils # Man Lymphocytes # (Manual) D-Dimer ABG pH POC ABG pCO2 POC ABG pO2 ABG pO2 ABG HCO3 ABG O2 Saturation ABG Base Excess ABG Hemoglobin ABG Oxyhemoglobin ABG Sodium ABG Potassium ABG Chloride ABG Glucose Oxyhemoglobin Chloride Carbon Dioxide BUN Creatinine Glucose POC Glucose 232 H 210 H Calcium Ferritin 219.8 H Lactate Dehydrogenase C-Reactive Protein Total Protein Albumin Arterial Blood Glucose Arterial Blood Ionized Calcium SARS-CoV-2 IgG Ab 07/13/20 07/13/20 07/14/20 23:57 Unknown 05:22 WBC RBC Hgb Lymph % (Auto) Lymph # (Auto) Seg Neuts % (Manual) Lymphocytes % (Manual) Seg Neutrophils # Seg Neutrophils # Man Lymphocytes # (Manual) D-Dimer ABG pH 7.341 L POC ABG pCO2 POC ABG pO2 133.0 H ABG pO2 56.5 L ABG HCO3 29.7 H ABG O2 Saturation 89.3 L ABG Base Excess ABG Hemoglobin 11.0 L ABG Oxyhemoglobin ABG Sodium ABG Potassium ABG Chloride ABG Glucose 207 H Oxyhemoglobin 87.7 L Chloride Carbon Dioxide BUN Creatinine Glucose POC Glucose 190 H Calcium Ferritin Lactate Dehydrogenase C-Reactive Protein Total Protein Albumin Arterial Blood Glucose 207 H Arterial Blood Ionized Calcium 4.5 L SARS-CoV-2 IgG Ab 07/14/20 07/14/20 07/14/20 05:54 11:16 17:50 WBC RBC Hgb Lymph % (Auto) Lymph # (Auto) Seg Neuts % (Manual) Lymphocytes % (Manual) Seg Neutrophils # Seg Neutrophils # Man Lymphocytes # (Manual) D-Dimer ABG pH POC ABG pCO2 POC ABG pO2 ABG pO2 ABG HCO3 ABG O2 Saturation ABG Base Excess ABG Hemoglobin ABG Oxyhemoglobin ABG Sodium ABG Potassium ABG Chloride ABG Glucose Oxyhemoglobin Chloride Carbon Dioxide BUN Creatinine Glucose POC Glucose 206 H 196 H 205 H Calcium Ferritin Lactate Dehydrogenase C-Reactive Protein Total Protein Albumin Arterial Blood Glucose Arterial Blood Ionized Calcium SARS-CoV-2 IgG Ab 07/14/20 07/15/20 07/15/20 23:28 03:16 06:12 WBC RBC Hgb Lymph % (Auto) Lymph # (Auto) Seg Neuts % (Manual) Lymphocytes % (Manual) Seg Neutrophils # Seg Neutrophils # Man Lymphocytes # (Manual) D-Dimer ABG pH POC ABG pCO2 49.2 H POC ABG pO2 120.3 H ABG pO2 ABG HCO3 ABG O2 Saturation ABG Base Excess ABG Hemoglobin 9.5 L ABG Oxyhemoglobin ABG Sodium ABG Potassium ABG Chloride ABG Glucose 148 H Oxyhemoglobin Chloride Carbon Dioxide BUN Creatinine Glucose POC Glucose 160 H 178 H Calcium Ferritin Lactate Dehydrogenase C-Reactive Protein Total Protein Albumin Arterial Blood Glucose 148 H Arterial Blood Ionized Calcium SARS-CoV-2 IgG Ab 07/15/20 07/15/20 07/15/20 09:00 12:32 14:30 WBC RBC Hgb Lymph % (Auto) Lymph # (Auto) Seg Neuts % (Manual) Lymphocytes % (Manual) Seg Neutrophils # Seg Neutrophils # Man Lymphocytes # (Manual) D-Dimer ABG pH POC ABG pCO2 POC ABG pO2 ABG pO2 ABG HCO3 ABG O2 Saturation ABG Base Excess ABG Hemoglobin ABG Oxyhemoglobin ABG Sodium ABG Potassium ABG Chloride ABG Glucose Oxyhemoglobin Chloride Carbon Dioxide BUN Creatinine Glucose POC Glucose 173 H Calcium Ferritin Lactate Dehydrogenase 531 H C-Reactive Protein Total Protein Albumin Arterial Blood Glucose Arterial Blood Ionized Calcium SARS-CoV-2 IgG Ab Reactive A 07/15/20 07/15/20 07/16/20 18:24 23:35 04:03 WBC RBC Hgb Lymph % (Auto) Lymph # (Auto) Seg Neuts % (Manual) Lymphocytes % (Manual) Seg Neutrophils # Seg Neutrophils # Man Lymphocytes # (Manual) D-Dimer ABG pH POC ABG pCO2 POC ABG pO2 ABG pO2 72.7 L ABG HCO3 35.5 H ABG O2 Saturation ABG Base Excess 9.4 H ABG Hemoglobin 10.6 L ABG Oxyhemoglobin ABG Sodium ABG Potassium ABG Chloride ABG Glucose Oxyhemoglobin 93.6 L Chloride Carbon Dioxide BUN Creatinine Glucose POC Glucose 173 H 181 H Calcium Ferritin Lactate Dehydrogenase C-Reactive Protein Total Protein Albumin Arterial Blood Glucose Arterial Blood Ionized Calcium SARS-CoV-2 IgG Ab 07/16/20 07/16/20 07/16/20 05:35 09:00 09:00 WBC 16.5 H RBC 3.59 L Hgb Lymph % (Auto) Lymph # (Auto) Seg Neuts % (Manual) 96.0 H Lymphocytes % (Manual) 3.0 L Seg Neutrophils # Seg Neutrophils # Man 15.8 H Lymphocytes # (Manual) 0.5 L D-Dimer ABG pH POC ABG pCO2 POC ABG pO2 ABG pO2 ABG HCO3 ABG O2 Saturation ABG Base Excess ABG Hemoglobin ABG Oxyhemoglobin ABG Sodium ABG Potassium ABG Chloride ABG Glucose Oxyhemoglobin Chloride Carbon Dioxide 39 H D BUN 25 H Creatinine 0.4 L Glucose 167 H POC Glucose 129 H Calcium 8.3 L Ferritin Lactate Dehydrogenase C-Reactive Protein Total Protein Albumin Arterial Blood Glucose Arterial Blood Ionized Calcium SARS-CoV-2 IgG Ab 07/16/20 07/16/20 07/17/20 12:32 18:28 00:09 WBC RBC Hgb Lymph % (Auto) Lymph # (Auto) Seg Neuts % (Manual) Lymphocytes % (Manual) Seg Neutrophils # Seg Neutrophils # Man Lymphocytes # (Manual) D-Dimer ABG pH POC ABG pCO2 POC ABG pO2 ABG pO2 ABG HCO3 ABG O2 Saturation ABG Base Excess ABG Hemoglobin ABG Oxyhemoglobin ABG Sodium ABG Potassium ABG Chloride ABG Glucose Oxyhemoglobin Chloride Carbon Dioxide BUN Creatinine Glucose POC Glucose 187 H 174 H 184 H Calcium Ferritin Lactate Dehydrogenase C-Reactive Protein Total Protein Albumin Arterial Blood Glucose Arterial Blood Ionized Calcium SARS-CoV-2 IgG Ab 07/17/20 07/17/20 07/17/20 04:30 05:47 13:03 WBC RBC Hgb Lymph % (Auto) Lymph # (Auto) Seg Neuts % (Manual) Lymphocytes % (Manual) Seg Neutrophils # Seg Neutrophils # Man Lymphocytes # (Manual) D-Dimer ABG pH POC ABG pCO2 POC ABG pO2 ABG pO2 ABG HCO3 38.1 H ABG O2 Saturation ABG Base Excess 11.3 H ABG Hemoglobin 10.5 L ABG Oxyhemoglobin ABG Sodium ABG Potassium ABG Chloride ABG Glucose Oxyhemoglobin Chloride Carbon Dioxide BUN Creatinine Glucose POC Glucose 135 H 210 H Calcium Ferritin Lactate Dehydrogenase C-Reactive Protein Total Protein Albumin Arterial Blood Glucose Arterial Blood Ionized Calcium SARS-CoV-2 IgG Ab 07/17/20 07/17/20 07/18/20 16:50 23:39 04:01 WBC RBC Hgb Lymph % (Auto) Lymph # (Auto) Seg Neuts % (Manual) Lymphocytes % (Manual) Seg Neutrophils # Seg Neutrophils # Man Lymphocytes # (Manual) D-Dimer ABG pH POC ABG pCO2 56.8 H POC ABG pO2 61.9 L ABG pO2 ABG HCO3 ABG O2 Saturation ABG Base Excess ABG Hemoglobin 11.7 L ABG Oxyhemoglobin ABG Sodium 134.2 L ABG Potassium 4.7 H ABG Chloride 97.0 L ABG Glucose 173 H Oxyhemoglobin Chloride Carbon Dioxide BUN Creatinine Glucose POC Glucose 193 H 163 H Calcium Ferritin Lactate Dehydrogenase C-Reactive Protein Total Protein Albumin Arterial Blood Glucose 173 H Arterial Blood Ionized Calcium SARS-CoV-2 IgG Ab 07/18/20 07/18/20 07/18/20 05:41 12:03 17:26 WBC RBC Hgb Lymph % (Auto) Lymph # (Auto) Seg Neuts % (Manual) Lymphocytes % (Manual) Seg Neutrophils # Seg Neutrophils # Man Lymphocytes # (Manual) D-Dimer ABG pH POC ABG pCO2 POC ABG pO2 ABG pO2 ABG HCO3 ABG O2 Saturation ABG Base Excess ABG Hemoglobin ABG Oxyhemoglobin ABG Sodium ABG Potassium ABG Chloride ABG Glucose Oxyhemoglobin Chloride Carbon Dioxide BUN Creatinine Glucose POC Glucose 153 H 177 H 160 H Calcium Ferritin Lactate Dehydrogenase C-Reactive Protein Total Protein Albumin Arterial Blood Glucose Arterial Blood Ionized Calcium SARS-CoV-2 IgG Ab 07/18/20 07/19/20 07/19/20 23:58 04:15 05:05 WBC RBC Hgb Lymph % (Auto) Lymph # (Auto) Seg Neuts % (Manual) Lymphocytes % (Manual) Seg Neutrophils # Seg Neutrophils # Man Lymphocytes # (Manual) D-Dimer ABG pH 7.465 H POC ABG pCO2 49.1 H POC ABG pO2 49.4 L ABG pO2 ABG HCO3 ABG O2 Saturation ABG Base Excess ABG Hemoglobin 11.6 L ABG Oxyhemoglobin ABG Sodium 132.3 L ABG Potassium ABG Chloride 97.0 L ABG Glucose 148 H Oxyhemoglobin Chloride Carbon Dioxide BUN Creatinine Glucose POC Glucose 144 H 117 H Calcium Ferritin Lactate Dehydrogenase C-Reactive Protein Total Protein Albumin Arterial Blood Glucose 148 H Arterial Blood Ionized Calcium SARS-CoV-2 IgG Ab 07/19/20 07/19/20 07/19/20 08:30 08:30 13:21 WBC 17.2 H RBC 3.59 L Hgb Lymph % (Auto) Lymph # (Auto) Seg Neuts % (Manual) Lymphocytes % (Manual) Seg Neutrophils # Seg Neutrophils # Man Lymphocytes # (Manual) D-Dimer ABG pH POC ABG pCO2 POC ABG pO2 ABG pO2 ABG HCO3 ABG O2 Saturation ABG Base Excess ABG Hemoglobin ABG Oxyhemoglobin ABG Sodium ABG Potassium ABG Chloride ABG Glucose Oxyhemoglobin Chloride 95.7 L Carbon Dioxide 37 H BUN 20 H Creatinine 0.4 L Glucose 125 H POC Glucose 137 H Calcium 8.1 L Ferritin Lactate Dehydrogenase C-Reactive Protein Total Protein Albumin Arterial Blood Glucose Arterial Blood Ionized Calcium SARS-CoV-2 IgG Ab 07/19/20 07/19/20 07/20/20 16:29 17:28 00:25 WBC RBC Hgb Lymph % (Auto) Lymph # (Auto) Seg Neuts % (Manual) Lymphocytes % (Manual) Seg Neutrophils # Seg Neutrophils # Man Lymphocytes # (Manual) D-Dimer ABG pH POC ABG pCO2 53.4 H POC ABG pO2 71.0 L ABG pO2 ABG HCO3 ABG O2 Saturation ABG Base Excess ABG Hemoglobin 11.2 L ABG Oxyhemoglobin 93.6 L ABG Sodium 130.9 L ABG Potassium ABG Chloride 95.0 L ABG Glucose 188 H Oxyhemoglobin Chloride Carbon Dioxide BUN Creatinine Glucose POC Glucose 174 H 188 H Calcium Ferritin Lactate Dehydrogenase C-Reactive Protein Total Protein Albumin Arterial Blood Glucose 188 H Arterial Blood Ionized Calcium 4.4 L SARS-CoV-2 IgG Ab 07/20/20 07/20/20 07/20/20 04:14 05:23 12:12 WBC RBC Hgb Lymph % (Auto) Lymph # (Auto) Seg Neuts % (Manual) Lymphocytes % (Manual) Seg Neutrophils # Seg Neutrophils # Man Lymphocytes # (Manual) D-Dimer ABG pH POC ABG pCO2 52.7 H POC ABG pO2 59.5 L ABG pO2 ABG HCO3 ABG O2 Saturation ABG Base Excess ABG Hemoglobin 10.6 L ABG Oxyhemoglobin ABG Sodium 134.4 L ABG Potassium ABG Chloride ABG Glucose 176 H Oxyhemoglobin Chloride Carbon Dioxide BUN Creatinine Glucose POC Glucose 212 H 190 H Calcium Ferritin Lactate Dehydrogenase C-Reactive Protein Total Protein Albumin Arterial Blood Glucose 176 H Arterial Blood Ionized Calcium 4.5 L SARS-CoV-2 IgG Ab 07/20/20 07/21/20 07/21/20 16:59 00:01 04:30 WBC RBC Hgb Lymph % (Auto) Lymph # (Auto) Seg Neuts % (Manual) Lymphocytes % (Manual) Seg Neutrophils # Seg Neutrophils # Man Lymphocytes # (Manual) D-Dimer ABG pH 7.468 H POC ABG pCO2 POC ABG pO2 63.3 L ABG pO2 ABG HCO3 ABG O2 Saturation ABG Base Excess ABG Hemoglobin 11 L ABG Oxyhemoglobin ABG Sodium 135.0 L ABG Potassium ABG Chloride ABG Glucose 204 H Oxyhemoglobin Chloride Carbon Dioxide BUN Creatinine Glucose POC Glucose 201 H 177 H Calcium Ferritin Lactate Dehydrogenase C-Reactive Protein Total Protein Albumin Arterial Blood Glucose 204 H Arterial Blood Ionized Calcium 4.5 L SARS-CoV-2 IgG Ab 07/21/20 07/21/20 05:26 11:50 WBC RBC Hgb Lymph % (Auto) Lymph # (Auto) Seg Neuts % (Manual) Lymphocytes % (Manual) Seg Neutrophils # Seg Neutrophils # Man Lymphocytes # (Manual) D-Dimer ABG pH POC ABG pCO2 POC ABG pO2 ABG pO2 ABG HCO3 ABG O2 Saturation ABG Base Excess ABG Hemoglobin ABG Oxyhemoglobin ABG Sodium ABG Potassium ABG Chloride ABG Glucose Oxyhemoglobin Chloride Carbon Dioxide BUN Creatinine Glucose POC Glucose 175 H 157 H Calcium Ferritin Lactate Dehydrogenase C-Reactive Protein Total Protein Albumin Arterial Blood Glucose Arterial Blood Ionized Calcium SARS-CoV-2 IgG Ab Chest x-ray: image reviewed Allied health notes reviewed: RT
[2020-07-21] MEDS: methylPREDNISolone Sod Succinate 40 MG/1 ML INJ IV SCH ×2 (14:21→17:31)
[2020-07-21] MEDS: ACETAMINOPHEN 325 MG TAB PO PRN (15:07)
--- NOTE | 2020-07-21 15:41 | Progress Note ---
Assessment and Plan --Acute asthma exacerbation on iv steroid Oxygen supplementation as needed Continue montelukast Monitor oxygen saturations closely -- COVID-19 Tested positive for COVID-19 in [facility] iv steroid, s/p Remdesivir for 5 days s/p convalescent plasma transfusion Procalcitonin <0.05 ID on board follow ferritin, ldh, d-dimer levels -- Acute hypoxic respiratory failure Now intubated on 07/09/20 overnight From COVID-19 and asthma exacerbation Continue steroids Continue oxygen supplementation -- GERD (gastroesophageal reflux disease) cont Pantoprazole --SLE (systemic lupus erythematosus related syndrome) Continue home medications-hydroxychloroquine -- DVT prophylaxis Lovenox 30 mg twice daily -- Full code status The high probability of a clinically significant, sudden or life threatening deterioration of the [[employer], respiratory, [employer]] system(s) required my full and direct attention, intervention and personal management. The aggregate critical care time was [33] minutes. This time is in addition to time spent performing reported procedures but includes the following: [x] Data Review and interpretation [x] Patient assessment and monitoring of vital signs [x] Documentation [x] Medication orders and management brief History: 50-year-old female with a past medical history of asthma, hypertension, and lupus complains of generalized body weakness, fever and shortness of breath. Patient states the symptoms started right after she was discharged from [facility] on 07/05. She has associated wheezing, fever, cough and she has been using her inhalers with no significant effect. She also has associated diarrhea. Of note, she was hospitalized here in [facility] on 06/28 for asthma exacerbation and had a negative Covid test during the admission. She was treated and discharged. She presented to [facility] for further evaluation after discharge from here and over there, she was found to have positive COVID-19 test and she was placed on steroids and subsequently discharged on Eliquis prophylaxis for DVT. She states that she did not receive remdesivir during the admission. She was discharged from [facility] on 07/05. She went home and felt worse. She said that she passed out about 2 times. Due to persistent symptoms, she called EMS who brought her to [facility] for further evaluation. Daily course: 07/07. Patient seen and examined at bedside this morning. Patient is wheezing and slightly short of breath. Change steroids to Solu-Medrol 60 every 6. Added formoterol and budesonide. ID evaluation pending. Started patient on remdesivir as she is short of breath. 07/07: Placed on BIPAP this AM. Will need pulm evaluation. Solumedrol 60mg q6. STAT blood gas ordered. She will be transferred to [facility]. 07/08: Patient took oxygen off and attempts to go to the bathroom and subsequently became hypoxemic with sats down into the low 80s. Patient became weak short of breath. After that time patient had persistent coughing and cannot maintain sats until nonrebreather was placed. Patient is transferred to the ICU unit and monitored for respiratory failure possibly requiring intubation. 07/09: ID recommended for convalescent plasma, ordered. Patient intubated overnight. Continue to monitor clinically, scheduled lab, follow inflammatory markers 07/10: Wait for convalescent plasma transfusion, wean off from ventilator as tolerated 07/11: Called patient's daughter and updated. Continue to wean off vent as tolerated, continue tube feeding, monitor vital sign CBC BMP daily. 07/12: remains intubated and sedated. follow inflammatory markers - wean off vent as tolerated 07/13: wean off vent as tolerated, cxr in the am. reviewed vitals 07/14: remains intubated, has not received convalescent plasma yet. Reviewed vitals, tolerating tube feeding. Wean off vent per critical care as tolerated. 07/15: cont to provide supportive care, wean off vent as tolerated - difficult to wean off. 07/16: CXR findings improving, cont to wean off vent 07/17: Follow inflammatory markers, monitor off antibiotics. Wean off vent per pulmonary as tolerated 07/18: Wean off vent per pulmonary as tolerated,Follow inflammatory markers, monitor off antibiotics. 07/19: Wean off vent per pulmonary as tolerated,Follow inflammatory markers, monitor off antibiotics. SBT trial 07/20: Wean off vent as tolerated, continue supportive care, follow inflammatory markers 07/21: continue supportive care, follow inflammatory markers, wean off vent as tolerated Subjective Date of service: 07/21/20 Principal diagnosis: Ac hypoxemic resp failure; PNA; COVID-19 infxn; SLE; Asthma exacerbation Interval history: Patient seen and examined Patient remains intubated on mechanical ventilation Discussed with RN at the bedside, on tube feeding Reviewed vitals, Objective - Exam Narrative Exam: GENERAL: well-developed obese -[place] female lying on bed intubated and sedated HEENT: Normocephalic. Atraumatic. No conjunctival congestion or icterus. Patient has moist mucous membranes. NECK: Supple. Trachea midline. ET tube in place, intubated with mechanical ventilation CHEST/LUNGS: Diffuse expiratory wheezes, coarse breath sound bilaterally HEART/CARDIOVASCULAR: Regular in rate and rhythm. S1 and S2 positive. ABDOMEN: Abdomen is soft, nontender. Patient has normal bowel sounds. SKIN: There is no rash. Warm and dry. NEURO: Sedated MUSCULOSKELETAL: No joint effusion or tenderness. EXTRIMITY: No edema, no cyanosis or clubbing. PSYCH: Unable to assess - Constitutional Vitals: Vital Signs - 12hr 07/21/20 07/21/20 07/21/20 03:54 03:59 04:00 Temperature 99.2 F Pulse Rate 71 87 Pulse Rate [ Bilateral Throughout] Pulse Rate [ 82 From Monitor] Respiratory 24 Rate Respiratory Rate [Bilateral Throughout] Blood Pressure 116/63 116/72 O2 Sat by Pulse 96 95 Oximetry 07/21/20 07/21/20 07/21/20 04:30 05:00 05:30 Temperature Pulse Rate 82 81 79 Pulse Rate [ Bilateral Throughout] Pulse Rate [ From Monitor] Respiratory 27 H 26 H 26 H Rate Respiratory Rate [Bilateral Throughout] Blood Pressure 125/74 124/72 135/69 O2 Sat by Pulse 95 95 95 Oximetry 07/21/20 07/21/20 07/21/20 06:00 06:30 07:01 Temperature Pulse Rate 78 85 84 Pulse Rate [ Bilateral Throughout] Pulse Rate [ From Monitor] Respiratory 26 H 32 H 30 H Rate Respiratory Rate [Bilateral Throughout] Blood Pressure 121/71 132/78 132/78 O2 Sat by Pulse 94 93 92 Oximetry 07/21/20 07/21/20 07/21/20 07:30 08:00 08:31 Temperature 99.2 F Pulse Rate 80 67 82 Pulse Rate [ Bilateral Throughout] Pulse Rate [ 87 From Monitor] Respiratory 28 H 34 H 27 H Rate Respiratory Rate [Bilateral Throughout] Blood Pressure 124/75 127/79 130/80 O2 Sat by Pulse 92 91 92 Oximetry 07/21/20 07/21/20 07/21/20 08:55 09:00 09:30 Temperature Pulse Rate 94 H Pulse Rate [ 86 Bilateral Throughout] Pulse Rate [ From Monitor] Respiratory Rate Respiratory 24 Rate [Bilateral Throughout] Blood Pressure 147/85 147/88 137/75 O2 Sat by Pulse 91 89 89 Oximetry 07/21/20 07/21/20 07/21/20 10:00 10:30 11:00 Temperature Pulse Rate 92 H 86 81 Pulse Rate [ Bilateral Throughout] Pulse Rate [ From Monitor] Respiratory 32 H 23 19 Rate Respiratory Rate [Bilateral Throughout] Blood Pressure 146/75 122/67 112/59 O2 Sat by Pulse 90 91 92 Oximetry 07/21/20 07/21/20 07/21/20 11:30 11:50 12:00 Temperature Pulse Rate 75 62 77 Pulse Rate [ Bilateral Throughout] Pulse Rate [ From Monitor] Respiratory 20 18 Rate Respiratory Rate [Bilateral Throughout] Blood Pressure 106/54 106/56 109/58 O2 Sat by Pulse 90 92 91 Oximetry 07/21/20 07/21/20 07/21/20 12:30 13:00 13:30 Temperature Pulse Rate 68 68 66 Pulse Rate [ Bilateral Throughout] Pulse Rate [ From Monitor] Respiratory 17 16 15 Rate Respiratory Rate [Bilateral Throughout] Blood Pressure 108/57 119/56 107/58 O2 Sat by Pulse 90 91 91 Oximetry 07/21/20 07/21/20 07/21/20 14:00 14:09 15:07 Temperature Pulse Rate 61 Pulse Rate [ 65 Bilateral Throughout] Pulse Rate [ From Monitor] Respiratory 17 29 H Rate Respiratory 22 Rate [Bilateral Throughout] Blood Pressure 106/56 O2 Sat by Pulse 91 Oximetry 07/21/20 07/21/20 15:23 15:28 Temperature Pulse Rate 87 92 H Pulse Rate [ Bilateral Throughout] Pulse Rate [ From Monitor] Respiratory Rate Respiratory Rate [Bilateral Throughout] Blood Pressure 121/66 O2 Sat by Pulse 90 Oximetry - Labs CBC & Chem 7: 07/19/20 08:30 07/19/20 08:30 Labs: Abnormal lab results 07/19/20 07/20/20 07/21/20 Range/Units 16:29 16:59 00:01 ABG pH (7.320-7.450) POC ABG pCO2 53.4 H (32.0-48.0) mmHg POC ABG pO2 71.0 L (83-108) mmHg ABG Hemoglobin 11.2 L (12.0-17.5) ABG Oxyhemoglobin 93.6 L (94-98) ABG Sodium 130.9 L (136.0-145.0) mmol/L ABG Chloride 95.0 L (98-107) mmol/L ABG Glucose 188 H (65-95) mg/dL POC Glucose 201 H 177 H (70-105) mg/dL Arterial Blood Glucose 188 H (65-95) mg/dL Arterial Blood Ionized Calcium 4.4 L (4.6-5.3) mg/dL 07/21/20 07/21/20 07/21/20 Range/Units 04:30 05:26 11:50 ABG pH 7.468 H (7.320-7.450) POC ABG pCO2 (32.0-48.0) mmHg POC ABG pO2 63.3 L (83-108) mmHg ABG Hemoglobin 11 L (12.0-17.5) ABG Oxyhemoglobin (94-98) ABG Sodium 135.0 L (136.0-145.0) mmol/L ABG Chloride (98-107) mmol/L ABG Glucose 204 H (65-95) mg/dL POC Glucose 175 H 157 H (70-105) mg/dL Arterial Blood Glucose 204 H (65-95) mg/dL Arterial Blood Ionized Calcium 4.5 L (4.6-5.3) mg/dL
[2020-07-21] MEDS: INSULIN GLARGINE 100 UNITS/ML SUB-Q SCH (17:31)
[2020-07-21] MEDS: QUEtiapine 100 MG TAB PO SCH (21:24)
[2020-07-21] MEDS: POLYETHYLENE GLYCOL 3350 17 GM POWDER PO SCH (21:46)
[2020-07-22] MEDS: INSULIN REGULAR, HUMAN 100 UNIT/ML 3ML VIAL SUB-Q SCH ×4 (00:32→17:31)
[2020-07-22] MEDS: methylPREDNISolone Sod Succinate 40 MG/1 ML INJ IV SCH ×4 (00:32→23:00)
[2020-07-22] MEDS: fentaNYL DRIP Premix 2,000 MCG/100 ML BAG IV SCH ×3 (02:49→23:12)
[2020-07-22] MEDS: MIDAZOLAM 100 MG in SODIUM CHLORIDE 0.9% 80 ML IV SCH (05:03)
[2020-07-22] MEDS: ARFORMOTEROL 15 MCG/2 ML NEBU IH SCH ×2 (08:35→21:20)
[2020-07-22] MEDS: BUDESONIDE 0.5 MG/2 ML NEBU IH SCH ×2 (08:35→21:20)
[2020-07-22] MEDS: ALBUTEROL 2.5 MG/3 ML NEBU IH SCH ×3 (08:35→21:20)
[2020-07-22] MEDS: DOCUSATE SODIUM 100 MG/10 ML ORAL LIQD PO SCH (09:24)
[2020-07-22] MEDS: LANSOPRAZOLE 30 MG SOLUTAB FEEDTUBE SCH (09:24)
[2020-07-22] MEDS: ZINC SULFATE 220 MG CAP PO SCH ×2 (09:24→23:00)
[2020-07-22] MEDS: QUEtiapine 100 MG TAB PO SCH ×2 (09:25→23:00)
[2020-07-22] MEDS: VENLAFAXINE 37.5 MG TAB PO SCH (09:25)
[2020-07-22] MEDS: ASPIRIN 81 MG TAB CHEW PO SCH (09:25)
[2020-07-22] MEDS: ENOXAPARIN 30 MG/0.3 ML INJ SUB-Q SCH ×2 (09:25→23:00)
[2020-07-22] MEDS: ASCORBIC ACID 500 MG TAB PO SCH ×2 (09:25→23:00)
[2020-07-22] MEDS: HYDROXYCHLOROQUINE 200 MG TAB PO SCH (09:25)
--- NOTE | 2020-07-22 12:48 | Progress Note ---
Assessment and Plan Acute hypoxemic respiratory failure, now on MVS Bilateral pneumonia, left greater than right lungs. COVID-19 infection. History of congestive heart failure. History of lupus erythematosus. Leukocytosis. Tobacco use disorder. Acute asthma exacerbation. History of hypertension. Obesity - continue Propfol for sedation (she was alert while on Fentanyl & Versed drips) - 2D ECHO shows no evidence of heart failure - slow systemic steroids taper (reduced frequency from q6h to q8h) - keep peep at 12 for now - continue to wean supplemental oxygen for target O2 sat's > 92% - no new issues otherwise, continue care as below; - continue Lantus 5 units SQ q24h - continue low dose SSI - continue Seroquel 200 mg p.o. bid - continue airborne and contact isolation - follow repeat COVID-19 testing - continue Zinc & Vit C supplementaion - complete Remdesivir - empiric AB's coverage per ID rec's otherwise - continue systemic steroids for Asthma / severe COVID infection - continue Daily SAT and SBT assessment as tolerated - VAP bundle addressed - continue lung protective strategies - continue bronchodilators with pulmonary hygiene per RT - wean per pulmonary driven protocols otherwise - accuchecks with glycemic control per SSI (While critically ill target blood glucose of 140-180 mg/dL; avoid hypoglycemia) - sedation prn for target RASS -1 to -2 - avoid nephrotoxins, renally dose all medications - continue to avoid benzodiazepine's, reduce the possibility of delirium - prn analgesia per CPOT score - Maintenance of sleep-wake cycle, avoid delirium - continue enteral nutritional support at goal rate as tolerated - G.I. & VTE prophylaxis - PT/OT/ROM exercises - continue mobility protocols for pressure ulcer prophylaxis - Monitor hemodynamics closely - continue other care per attending / other consultants - discharge planning ongoing concurrently .... Re-evaluate in am & prn CONDITION: CRITICAL PROGNOSIS: GUARDED CODE STATUS: FULL CODE The high probability of a clinically significant, sudden or life-threatening deterioration of the [respiratory, cardiovascular & neurologic] system(s) required my full and direct attention, intervention and personal management. The aggregate critical care time was [32] minutes without overlap. Time includes spent on; [x] Data Review and interpretation [x] Patient assessment and monitoring of vital signs [x] Documentation [x] Medication orders and management Subjective Date of service: 11/23/20 Principal diagnosis: Ac hypoxemic resp failure; PNA; COVID-19 infxn; SLE; Asthma exacerbation Interval history: Patient is seen today for: Acute hypoxemic respiratory failure; Bilateral pneumonia; COVID-19 infection; H/O CHF; SLE; Acute asthma exacerbation. HTN; Obesity Seen and examined at bedside; 24hour events reviewed; nursing and respiratory care staff consulted; no adverse overnight events reported to me; resting peacefully in bed; remains on MVS; FiO2 at 55%; peep at 12; desaturate's o ccasionally; No emesis or overt aspiration Objective Vital Signs - 12hr 07/22/20 07/22/20 07/22/20 01:00 01:30 02:00 Temperature Pulse Rate 70 69 67 Pulse Rate [ Bilateral Throughout] Pulse Rate [ From Monitor] Respiratory 16 17 16 Rate Respiratory Rate [Bilateral Throughout] Blood Pressure 92/50 103/54 101/53 O2 Sat by Pulse 90 91 89 Oximetry 07/22/20 07/22/20 07/22/20 02:30 03:00 03:19 Temperature 98.4 F Pulse Rate 63 71 Pulse Rate [ Bilateral Throughout] Pulse Rate [ From Monitor] Respiratory 15 18 Rate Respiratory Rate [Bilateral Throughout] Blood Pressure 101/58 95/59 O2 Sat by Pulse 90 91 Oximetry 07/22/20 07/22/20 07/22/20 03:30 04:00 04:17 Temperature Pulse Rate 71 67 65 Pulse Rate [ Bilateral Throughout] Pulse Rate [ 69 From Monitor] Respiratory 21 32 H Rate Respiratory Rate [Bilateral Throughout] Blood Pressure 113/65 107/59 101/57 O2 Sat by Pulse 91 89 92 Oximetry 07/22/20 07/22/20 07/22/20 04:30 05:00 05:30 Temperature Pulse Rate 69 68 70 Pulse Rate [ Bilateral Throughout] Pulse Rate [ From Monitor] Respiratory 19 16 18 Rate Respiratory Rate [Bilateral Throughout] Blood Pressure 105/60 122/59 105/58 O2 Sat by Pulse 90 91 91 Oximetry 07/22/20 07/22/20 07/22/20 06:00 06:30 07:00 Temperature Pulse Rate 66 80 66 Pulse Rate [ Bilateral Throughout] Pulse Rate [ From Monitor] Respiratory 18 26 H 14 Rate Respiratory Rate [Bilateral Throughout] Blood Pressure 109/54 116/74 101/60 O2 Sat by Pulse 91 89 90 Oximetry 07/22/20 07/22/20 07/22/20 07:30 08:00 08:30 Temperature 98.6 F Pulse Rate 67 68 76 Pulse Rate [ Bilateral Throughout] Pulse Rate [ 66 From Monitor] Respiratory 15 32 H 20 Rate Respiratory Rate [Bilateral Throughout] Blood Pressure 103/67 99/72 110/65 O2 Sat by Pulse 92 92 93 Oximetry 07/22/20 07/22/20 07/22/20 08:33 09:00 09:10 Temperature Pulse Rate 79 76 Pulse Rate [ 80 Bilateral Throughout] Pulse Rate [ From Monitor] Respiratory 20 Rate Respiratory 24 Rate [Bilateral Throughout] Blood Pressure 110/65 118/72 O2 Sat by Pulse 92 92 Oximetry 07/22/20 12:46 Temperature Pulse Rate 76 Pulse Rate [ Bilateral Throughout] Pulse Rate [ From Monitor] Respiratory Rate Respiratory Rate [Bilateral Throughout] Blood Pressure 122/75 O2 Sat by Pulse 93 Oximetry Constitutional: no acute distress, other (middle aged obese female with moderately increased respiratory effort at rest on MVS) Eyes: non-icteric ENT: oropharynx moist, other (ETT 7.5cm, 23cm YANET) Neck: supple, no lymphadenopathy, no JVD Effort: mildly labored Ascultation: Bilateral: diminished breath sounds, rhonchi (scant ) Percussion: Bilateral: not dull Cardiovascular: regular rate and rhythm, other (S1,S2) Gastrointestinal: normoactive bowel sounds, soft, non-tender, non-distended Integumentary: normal Extremities: no cyanosis, no edema, pulses normal, no ischemia or petechiae Neurologic: normal mental status, non-focal exam, pupils equal and round, motor strength normal and Psychiatric: mood appropriate, affect normal, other (sedated) CBC and BMP: 07/19/20 08:30 07/19/20 08:30 ABG, PT/INR, D-dimer: ABG ABG pH 7.431 (7.320-7.450) 07/22/20 03:26 POC ABG pCO2 46.1 mmHg (32.0-48.0) 07/22/20 03:26 ABG pCO2 62.9 mm Hg 07/17/20 04:30 POC ABG pO2 54.2 mmHg (83-108) L 07/22/20 03:26 ABG pO2 83.1 mm Hg (80.0-90.0) 07/17/20 04:30 POC ABG HCO3 30.0 07/22/20 03:26 ABG O2 Saturation 96.7 % (95.0-99.0) 07/17/20 04:30 PT/INR, D-dimer D-Dimer 826.36 ng/mlDDU (0-234) H 07/13/20 07:20 Abnormal lab findings: Abnormal Labs 07/06/20 07/06/20 07/07/20 05:24 17:16 04:50 WBC 13.5 H 12.7 H RBC Hgb Lymph % (Auto) Lymph # (Auto) Seg Neuts % (Manual) 86.0 H 87.0 H Lymphocytes % (Manual) 6.0 L 9.0 L Seg Neutrophils # Seg Neutrophils # Man 11.6 H 11.0 H Lymphocytes # (Manual) 0.8 L 1.1 L D-Dimer ABG pH POC ABG pCO2 POC ABG pO2 ABG pO2 ABG HCO3 ABG O2 Saturation ABG Base Excess ABG Hemoglobin ABG Oxyhemoglobin ABG Sodium ABG Potassium ABG Chloride ABG Glucose Oxyhemoglobin Chloride Carbon Dioxide BUN Creatinine Glucose POC Glucose Calcium Ferritin Lactate Dehydrogenase 242 H C-Reactive Protein 7.30 H Total Protein Albumin Arterial Blood Glucose Arterial Blood Ionized Calcium SARS-CoV-2 IgG Ab 07/07/20 07/07/20 07/07/20 04:50 14:22 14:22 WBC RBC Hgb Lymph % (Auto) Lymph # (Auto) Seg Neuts % (Manual) Lymphocytes % (Manual) Seg Neutrophils # Seg Neutrophils # Man Lymphocytes # (Manual) D-Dimer ABG pH POC ABG pCO2 POC ABG pO2 ABG pO2 ABG HCO3 ABG O2 Saturation ABG Base Excess ABG Hemoglobin ABG Oxyhemoglobin ABG Sodium ABG Potassium ABG Chloride ABG Glucose Oxyhemoglobin Chloride Carbon Dioxide BUN 18 H Creatinine Glucose 138 H POC Glucose Calcium Ferritin 228.2 H Lactate Dehydrogenase 277 H C-Reactive Protein Total Protein 5.9 L Albumin 3.4 L Arterial Blood Glucose Arterial Blood Ionized Calcium SARS-CoV-2 IgG Ab 07/08/20 07/08/20 07/08/20 11:18 12:57 16:13 WBC RBC Hgb Lymph % (Auto) Lymph # (Auto) Seg Neuts % (Manual) Lymphocytes % (Manual) Seg Neutrophils # Seg Neutrophils # Man Lymphocytes # (Manual) D-Dimer ABG pH POC ABG pCO2 POC ABG pO2 ABG pO2 39.3 L* ABG HCO3 ABG O2 Saturation 76.8 L ABG Base Excess ABG Hemoglobin ABG Oxyhemoglobin ABG Sodium ABG Potassium ABG Chloride ABG Glucose Oxyhemoglobin 75.3 L Chloride Carbon Dioxide 20 L D BUN Creatinine Glucose 135 H POC Glucose 106 H Calcium 8.0 L Ferritin Lactate Dehydrogenase C-Reactive Protein Total Protein Albumin Arterial Blood Glucose Arterial Blood Ionized Calcium SARS-CoV-2 IgG Ab 07/08/20 07/08/20 07/09/20 17:04 18:45 04:00 WBC 15.6 H RBC Hgb Lymph % (Auto) 4.7 L Lymph # (Auto) 0.7 L Seg Neuts % (Manual) Lymphocytes % (Manual) Seg Neutrophils # 14.2 H Seg Neutrophils # Man Lymphocytes # (Manual) D-Dimer ABG pH POC ABG pCO2 POC ABG pO2 ABG pO2 181.8 H ABG HCO3 ABG O2 Saturation 99.1 H ABG Base Excess ABG Hemoglobin 11.4 L ABG Oxyhemoglobin ABG Sodium ABG Potassium ABG Chloride ABG Glucose Oxyhemoglobin Chloride Carbon Dioxide BUN Creatinine Glucose POC Glucose 117 H Calcium Ferritin Lactate Dehydrogenase C-Reactive Protein Total Protein Albumin Arterial Blood Glucose Arterial Blood Ionized Calcium SARS-CoV-2 IgG Ab 07/09/20 07/09/20 07/09/20 04:00 04:00 04:49 WBC RBC Hgb Lymph % (Auto) Lymph # (Auto) Seg Neuts % (Manual) Lymphocytes % (Manual) Seg Neutrophils # Seg Neutrophils # Man Lymphocytes # (Manual) D-Dimer ABG pH POC ABG pCO2 POC ABG pO2 ABG pO2 ABG HCO3 26.2 H ABG O2 Saturation ABG Base Excess ABG Hemoglobin 11.2 L ABG Oxyhemoglobin ABG Sodium ABG Potassium ABG Chloride ABG Glucose Oxyhemoglobin 94.9 L Chloride Carbon Dioxide BUN Creatinine Glucose 158 H POC Glucose Calcium 8.2 L Ferritin 320.0 H Lactate Dehydrogenase 391 H C-Reactive Protein 9.50 H Total Protein 5.9 L Albumin 3.2 L Arterial Blood Glucose Arterial Blood Ionized Calcium SARS-CoV-2 IgG Ab 07/09/20 07/09/20 07/09/20 11:56 17:49 23:39 WBC RBC Hgb Lymph % (Auto) Lymph # (Auto) Seg Neuts % (Manual) Lymphocytes % (Manual) Seg Neutrophils # Seg Neutrophils # Man Lymphocytes # (Manual) D-Dimer ABG pH POC ABG pCO2 POC ABG pO2 ABG pO2 ABG HCO3 ABG O2 Saturation ABG Base Excess ABG Hemoglobin ABG Oxyhemoglobin ABG Sodium ABG Potassium ABG Chloride ABG Glucose Oxyhemoglobin Chloride Carbon Dioxide BUN Creatinine Glucose POC Glucose 156 H 119 H 145 H Calcium Ferritin Lactate Dehydrogenase C-Reactive Protein Total Protein Albumin Arterial Blood Glucose Arterial Blood Ionized Calcium SARS-CoV-2 IgG Ab 07/10/20 07/10/20 07/10/20 03:32 05:26 11:22 WBC RBC Hgb Lymph % (Auto) Lymph # (Auto) Seg Neuts % (Manual) Lymphocytes % (Manual) Seg Neutrophils # Seg Neutrophils # Man Lymphocytes # (Manual) D-Dimer ABG pH POC ABG pCO2 POC ABG pO2 ABG pO2 75.7 L ABG HCO3 27.5 H ABG O2 Saturation ABG Base Excess ABG Hemoglobin 9.3 L ABG Oxyhemoglobin ABG Sodium ABG Potassium ABG Chloride ABG Glucose Oxyhemoglobin 94.7 L Chloride Carbon Dioxide BUN Creatinine Glucose POC Glucose 156 H 148 H Calcium Ferritin Lactate Dehydrogenase C-Reactive Protein Total Protein Albumin Arterial Blood Glucose Arterial Blood Ionized Calcium SARS-CoV-2 IgG Ab 07/10/20 07/10/20 07/10/20 12:10 12:10 18:20 WBC 14.1 H RBC 3.33 L Hgb 9.9 L Lymph % (Auto) Lymph # (Auto) Seg Neuts % (Manual) 89.0 H Lymphocytes % (Manual) 8.0 L Seg Neutrophils # Seg Neutrophils # Man 12.5 H Lymphocytes # (Manual) 1.1 L D-Dimer ABG pH POC ABG pCO2 POC ABG pO2 ABG pO2 ABG HCO3 ABG O2 Saturation ABG Base Excess ABG Hemoglobin ABG Oxyhemoglobin ABG Sodium ABG Potassium ABG Chloride ABG Glucose Oxyhemoglobin Chloride Carbon Dioxide BUN 21 H Creatinine Glucose 154 H POC Glucose 181 H Calcium 8.0 L Ferritin Lactate Dehydrogenase C-Reactive Protein Total Protein 5.4 L Albumin 3.0 L Arterial Blood Glucose Arterial Blood Ionized Calcium SARS-CoV-2 IgG Ab 07/10/20 07/11/20 07/11/20 23:51 04:05 05:43 WBC RBC Hgb Lymph % (Auto) Lymph # (Auto) Seg Neuts % (Manual) Lymphocytes % (Manual) Seg Neutrophils # Seg Neutrophils # Man Lymphocytes # (Manual) D-Dimer ABG pH 7.348 L POC ABG pCO2 POC ABG pO2 ABG pO2 93.6 H ABG HCO3 28.5 H ABG O2 Saturation ABG Base Excess ABG Hemoglobin 10.1 L ABG Oxyhemoglobin ABG Sodium ABG Potassium ABG Chloride ABG Glucose Oxyhemoglobin Chloride Carbon Dioxide BUN Creatinine Glucose POC Glucose 116 H 132 H Calcium Ferritin Lactate Dehydrogenase C-Reactive Protein Total Protein Albumin Arterial Blood Glucose Arterial Blood Ionized Calcium SARS-CoV-2 IgG Ab 07/11/20 07/11/20 07/11/20 09:11 09:11 09:11 WBC 15.8 H RBC 3.44 L Hgb Lymph % (Auto) Lymph # (Auto) Seg Neuts % (Manual) 92.0 H Lymphocytes % (Manual) 4.0 L Seg Neutrophils # Seg Neutrophils # Man 14.5 H Lymphocytes # (Manual) 0.6 L D-Dimer 360.61 H ABG pH POC ABG pCO2 POC ABG pO2 ABG pO2 ABG HCO3 ABG O2 Saturation ABG Base Excess ABG Hemoglobin ABG Oxyhemoglobin ABG Sodium ABG Potassium ABG Chloride ABG Glucose Oxyhemoglobin Chloride 107.1 H Carbon Dioxide BUN 22 H Creatinine Glucose 149 H POC Glucose Calcium 7.8 L Ferritin Lactate Dehydrogenase 483 H C-Reactive Protein 2.30 H Total Protein 4.9 L Albumin 3.0 L Arterial Blood Glucose Arterial Blood Ionized Calcium SARS-CoV-2 IgG Ab 07/11/20 07/11/20 07/11/20 09:11 12:16 17:55 WBC RBC Hgb Lymph % (Auto) Lymph # (Auto) Seg Neuts % (Manual) Lymphocytes % (Manual) Seg Neutrophils # Seg Neutrophils # Man Lymphocytes # (Manual) D-Dimer ABG pH POC ABG pCO2 POC ABG pO2 ABG pO2 ABG HCO3 ABG O2 Saturation ABG Base Excess ABG Hemoglobin ABG Oxyhemoglobin ABG Sodium ABG Potassium ABG Chloride ABG Glucose Oxyhemoglobin Chloride Carbon Dioxide BUN Creatinine Glucose POC Glucose 157 H 166 H Calcium Ferritin 371.2 H Lactate Dehydrogenase C-Reactive Protein Total Protein Albumin Arterial Blood Glucose Arterial Blood Ionized Calcium SARS-CoV-2 IgG Ab 1107/12/20 07/12/20 00:32 04:00 04:00 WBC RBC 3.52 L Hgb Lymph % (Auto) Lymph # (Auto) Seg Neuts % (Manual) 90.0 H Lymphocytes % (Manual) 4.0 L Seg Neutrophils # Seg Neutrophils # Man 9.5 H Lymphocytes # (Manual) 0.4 L D-Dimer ABG pH POC ABG pCO2 POC ABG pO2 ABG pO2 ABG HCO3 ABG O2 Saturation ABG Base Excess ABG Hemoglobin ABG Oxyhemoglobin ABG Sodium ABG Potassium ABG Chloride ABG Glucose Oxyhemoglobin Chloride Carbon Dioxide 31 H BUN 21 H Creatinine Glucose 175 H POC Glucose 178 H Calcium 8.0 L Ferritin Lactate Dehydrogenase C-Reactive Protein Total Protein 5.4 L Albumin 3.0 L Arterial Blood Glucose Arterial Blood Ionized Calcium SARS-CoV-2 IgG Ab 07/12/20 07/12/20 07/12/20 04:01 05:47 12:09 WBC RBC Hgb Lymph % (Auto) Lymph # (Auto) Seg Neuts % (Manual) Lymphocytes % (Manual) Seg Neutrophils # Seg Neutrophils # Man Lymphocytes # (Manual) D-Dimer ABG pH 7.456 H POC ABG pCO2 POC ABG pO2 ABG pO2 ABG HCO3 ABG O2 Saturation ABG Base Excess ABG Hemoglobin 10.6 L ABG Oxyhemoglobin ABG Sodium ABG Potassium ABG Chloride ABG Glucose 177 H Oxyhemoglobin Chloride Carbon Dioxide BUN Creatinine Glucose POC Glucose 185 H 227 H Calcium Ferritin Lactate Dehydrogenase C-Reactive Protein Total Protein Albumin Arterial Blood Glucose 177 H Arterial Blood Ionized Calcium 4.5 L SARS-CoV-2 IgG Ab 07/12/20 07/12/20 07/13/20 17:34 23:57 05:06 WBC RBC Hgb Lymph % (Auto) Lymph # (Auto) Seg Neuts % (Manual) Lymphocytes % (Manual) Seg Neutrophils # Seg Neutrophils # Man Lymphocytes # (Manual) D-Dimer ABG pH POC ABG pCO2 POC ABG pO2 ABG pO2 ABG HCO3 ABG O2 Saturation ABG Base Excess ABG Hemoglobin ABG Oxyhemoglobin ABG Sodium ABG Potassium ABG Chloride ABG Glucose Oxyhemoglobin Chloride Carbon Dioxide BUN Creatinine Glucose POC Glucose 202 H 163 H 166 H Calcium Ferritin Lactate Dehydrogenase C-Reactive Protein Total Protein Albumin Arterial Blood Glucose Arterial Blood Ionized Calcium SARS-CoV-2 IgG Ab 07/13/20 07/13/20 07/13/20 07:20 07:20 07:20 WBC 20.5 H RBC Hgb Lymph % (Auto) Lymph # (Auto) Seg Neuts % (Manual) 93.0 H Lymphocytes % (Manual) 3.0 L Seg Neutrophils # Seg Neutrophils # Man 19.1 H Lymphocytes # (Manual) 0.6 L D-Dimer 826.36 H ABG pH POC ABG pCO2 POC ABG pO2 ABG pO2 ABG HCO3 ABG O2 Saturation ABG Base Excess ABG Hemoglobin ABG Oxyhemoglobin ABG Sodium ABG Potassium ABG Chloride ABG Glucose Oxyhemoglobin Chloride Carbon Dioxide 31 H BUN 25 H Creatinine Glucose 163 H POC Glucose Calcium 8.1 L Ferritin Lactate Dehydrogenase 512 H C-Reactive Protein 1.80 H Total Protein 5.8 L Albumin 3.2 L Arterial Blood Glucose Arterial Blood Ionized Calcium SARS-CoV-2 IgG Ab 07/13/20 07/13/20 07/13/20 07:20 11:37 17:20 WBC RBC Hgb Lymph % (Auto) Lymph # (Auto) Seg Neuts % (Manual) Lymphocytes % (Manual) Seg Neutrophils # Seg Neutrophils # Man Lymphocytes # (Manual) D-Dimer ABG pH POC ABG pCO2 POC ABG pO2 ABG pO2 ABG HCO3 ABG O2 Saturation ABG Base Excess ABG Hemoglobin ABG Oxyhemoglobin ABG Sodium ABG Potassium ABG Chloride ABG Glucose Oxyhemoglobin Chloride Carbon Dioxide BUN Creatinine Glucose POC Glucose 232 H 210 H Calcium Ferritin 219.8 H Lactate Dehydrogenase C-Reactive Protein Total Protein Albumin Arterial Blood Glucose Arterial Blood Ionized Calcium SARS-CoV-2 IgG Ab 07/13/20 07/13/20 07/14/20 23:57 Unknown 05:22 WBC RBC Hgb Lymph % (Auto) Lymph # (Auto) Seg Neuts % (Manual) Lymphocytes % (Manual) Seg Neutrophils # Seg Neutrophils # Man Lymphocytes # (Manual) D-Dimer ABG pH 7.341 L POC ABG pCO2 POC ABG pO2 133.0 H ABG pO2 56.5 L ABG HCO3 29.7 H ABG O2 Saturation 89.3 L ABG Base Excess ABG Hemoglobin 11.0 L ABG Oxyhemoglobin ABG Sodium ABG Potassium ABG Chloride ABG Glucose 207 H Oxyhemoglobin 87.7 L Chloride Carbon Dioxide BUN Creatinine Glucose POC Glucose 190 H Calcium Ferritin Lactate Dehydrogenase C-Reactive Protein Total Protein Albumin Arterial Blood Glucose 207 H Arterial Blood Ionized Calcium 4.5 L SARS-CoV-2 IgG Ab 07/14/20 07/14/20 07/14/20 05:54 11:16 17:50 WBC RBC Hgb Lymph % (Auto) Lymph # (Auto) Seg Neuts % (Manual) Lymphocytes % (Manual) Seg Neutrophils # Seg Neutrophils # Man Lymphocytes # (Manual) D-Dimer ABG pH POC ABG pCO2 POC ABG pO2 ABG pO2 ABG HCO3 ABG O2 Saturation ABG Base Excess ABG Hemoglobin ABG Oxyhemoglobin ABG Sodium ABG Potassium ABG Chloride ABG Glucose Oxyhemoglobin Chloride Carbon Dioxide BUN Creatinine Glucose POC Glucose 206 H 196 H 205 H Calcium Ferritin Lactate Dehydrogenase C-Reactive Protein Total Protein Albumin Arterial Blood Glucose Arterial Blood Ionized Calcium SARS-CoV-2 IgG Ab 07/14/20 07/15/20 07/15/20 23:28 03:16 06:12 WBC RBC Hgb Lymph % (Auto) Lymph # (Auto) Seg Neuts % (Manual) Lymphocytes % (Manual) Seg Neutrophils # Seg Neutrophils # Man Lymphocytes # (Manual) D-Dimer ABG pH POC ABG pCO2 49.2 H POC ABG pO2 120.3 H ABG pO2 ABG HCO3 ABG O2 Saturation ABG Base Excess ABG Hemoglobin 9.5 L ABG Oxyhemoglobin ABG Sodium ABG Potassium ABG Chloride ABG Glucose 148 H Oxyhemoglobin Chloride Carbon Dioxide BUN Creatinine Glucose POC Glucose 160 H 178 H Calcium Ferritin Lactate Dehydrogenase C-Reactive Protein Total Protein Albumin Arterial Blood Glucose 148 H Arterial Blood Ionized Calcium SARS-CoV-2 IgG Ab 07/15/20 07/15/20 07/15/20 09:00 12:32 14:30 WBC RBC Hgb Lymph % (Auto) Lymph # (Auto) Seg Neuts % (Manual) Lymphocytes % (Manual) Seg Neutrophils # Seg Neutrophils # Man Lymphocytes # (Manual) D-Dimer ABG pH POC ABG pCO2 POC ABG pO2 ABG pO2 ABG HCO3 ABG O2 Saturation ABG Base Excess ABG Hemoglobin ABG Oxyhemoglobin ABG Sodium ABG Potassium ABG Chloride ABG Glucose Oxyhemoglobin Chloride Carbon Dioxide BUN Creatinine Glucose POC Glucose 173 H Calcium Ferritin Lactate Dehydrogenase 531 H C-Reactive Protein Total Protein Albumin Arterial Blood Glucose Arterial Blood Ionized Calcium SARS-CoV-2 IgG Ab Reactive A 07/15/20 07/15/20 07/16/20 18:24 23:35 04:03 WBC RBC Hgb Lymph % (Auto) Lymph # (Auto) Seg Neuts % (Manual) Lymphocytes % (Manual) Seg Neutrophils # Seg Neutrophils # Man Lymphocytes # (Manual) D-Dimer ABG pH POC ABG pCO2 POC ABG pO2 ABG pO2 72.7 L ABG HCO3 35.5 H ABG O2 Saturation ABG Base Excess 9.4 H ABG Hemoglobin 10.6 L ABG Oxyhemoglobin ABG Sodium ABG Potassium ABG Chloride ABG Glucose Oxyhemoglobin 93.6 L Chloride Carbon Dioxide BUN Creatinine Glucose POC Glucose 173 H 181 H Calcium Ferritin Lactate Dehydrogenase C-Reactive Protein Total Protein Albumin Arterial Blood Glucose Arterial Blood Ionized Calcium SARS-CoV-2 IgG Ab 07/16/20 07/16/20 07/16/20 05:35 09:00 09:00 WBC 16.5 H RBC 3.59 L Hgb Lymph % (Auto) Lymph # (Auto) Seg Neuts % (Manual) 96.0 H Lymphocytes % (Manual) 3.0 L Seg Neutrophils # Seg Neutrophils # Man 15.8 H Lymphocytes # (Manual) 0.5 L D-Dimer ABG pH POC ABG pCO2 POC ABG pO2 ABG pO2 ABG HCO3 ABG O2 Saturation ABG Base Excess ABG Hemoglobin ABG Oxyhemoglobin ABG Sodium ABG Potassium ABG Chloride ABG Glucose Oxyhemoglobin Chloride Carbon Dioxide 39 H D BUN 25 H Creatinine 0.4 L Glucose 167 H POC Glucose 129 H Calcium 8.3 L Ferritin Lactate Dehydrogenase C-Reactive Protein Total Protein Albumin Arterial Blood Glucose Arterial Blood Ionized Calcium SARS-CoV-2 IgG Ab 07/16/20 07/16/20 07/17/20 12:32 18:28 00:09 WBC RBC Hgb Lymph % (Auto) Lymph # (Auto) Seg Neuts % (Manual) Lymphocytes % (Manual) Seg Neutrophils # Seg Neutrophils # Man Lymphocytes # (Manual) D-Dimer ABG pH POC ABG pCO2 POC ABG pO2 ABG pO2 ABG HCO3 ABG O2 Saturation ABG Base Excess ABG Hemoglobin ABG Oxyhemoglobin ABG Sodium ABG Potassium ABG Chloride ABG Glucose Oxyhemoglobin Chloride Carbon Dioxide BUN Creatinine Glucose POC Glucose 187 H 174 H 184 H Calcium Ferritin Lactate Dehydrogenase C-Reactive Protein Total Protein Albumin Arterial Blood Glucose Arterial Blood Ionized Calcium SARS-CoV-2 IgG Ab 07/17/20 07/17/20 07/17/20 04:30 05:47 13:03 WBC RBC Hgb Lymph % (Auto) Lymph # (Auto) Seg Neuts % (Manual) Lymphocytes % (Manual) Seg Neutrophils # Seg Neutrophils # Man Lymphocytes # (Manual) D-Dimer ABG pH POC ABG pCO2 POC ABG pO2 ABG pO2 ABG HCO3 38.1 H ABG O2 Saturation ABG Base Excess 11.3 H ABG Hemoglobin 10.5 L ABG Oxyhemoglobin ABG Sodium ABG Potassium ABG Chloride ABG Glucose Oxyhemoglobin Chloride Carbon Dioxide BUN Creatinine Glucose POC Glucose 135 H 210 H Calcium Ferritin Lactate Dehydrogenase C-Reactive Protein Total Protein Albumin Arterial Blood Glucose Arterial Blood Ionized Calcium SARS-CoV-2 IgG Ab 07/17/20 07/17/20 07/18/20 16:50 23:39 04:01 WBC RBC Hgb Lymph % (Auto) Lymph # (Auto) Seg Neuts % (Manual) Lymphocytes % (Manual) Seg Neutrophils # Seg Neutrophils # Man Lymphocytes # (Manual) D-Dimer ABG pH POC ABG pCO2 56.8 H POC ABG pO2 61.9 L ABG pO2 ABG HCO3 ABG O2 Saturation ABG Base Excess ABG Hemoglobin 11.7 L ABG Oxyhemoglobin ABG Sodium 134.2 L ABG Potassium 4.7 H ABG Chloride 97.0 L ABG Glucose 173 H Oxyhemoglobin Chloride Carbon Dioxide BUN Creatinine Glucose POC Glucose 193 H 163 H Calcium Ferritin Lactate Dehydrogenase C-Reactive Protein Total Protein Albumin Arterial Blood Glucose 173 H Arterial Blood Ionized Calcium SARS-CoV-2 IgG Ab 07/18/20 07/18/20 07/18/20 05:41 12:03 17:26 WBC RBC Hgb Lymph % (Auto) Lymph # (Auto) Seg Neuts % (Manual) Lymphocytes % (Manual) Seg Neutrophils # Seg Neutrophils # Man Lymphocytes # (Manual) D-Dimer ABG pH POC ABG pCO2 POC ABG pO2 ABG pO2 ABG HCO3 ABG O2 Saturation ABG Base Excess ABG Hemoglobin ABG Oxyhemoglobin ABG Sodium ABG Potassium ABG Chloride ABG Glucose Oxyhemoglobin Chloride Carbon Dioxide BUN Creatinine Glucose POC Glucose 153 H 177 H 160 H Calcium Ferritin Lactate Dehydrogenase C-Reactive Protein Total Protein Albumin Arterial Blood Glucose Arterial Blood Ionized Calcium SARS-CoV-2 IgG Ab 07/18/20 07/19/20 07/19/20 23:58 04:15 05:05 WBC RBC Hgb Lymph % (Auto) Lymph # (Auto) Seg Neuts % (Manual) Lymphocytes % (Manual) Seg Neutrophils # Seg Neutrophils # Man Lymphocytes # (Manual) D-Dimer ABG pH 7.465 H POC ABG pCO2 49.1 H POC ABG pO2 49.4 L ABG pO2 ABG HCO3 ABG O2 Saturation ABG Base Excess ABG Hemoglobin 11.6 L ABG Oxyhemoglobin ABG Sodium 132.3 L ABG Potassium ABG Chloride 97.0 L ABG Glucose 148 H Oxyhemoglobin Chloride Carbon Dioxide BUN Creatinine Glucose POC Glucose 144 H 117 H Calcium Ferritin Lactate Dehydrogenase C-Reactive Protein Total Protein Albumin Arterial Blood Glucose 148 H Arterial Blood Ionized Calcium SARS-CoV-2 IgG Ab 07/19/20 07/19/20 07/19/20 08:30 08:30 13:21 WBC 17.2 H RBC 3.59 L Hgb Lymph % (Auto) Lymph # (Auto) Seg Neuts % (Manual) Lymphocytes % (Manual) Seg Neutrophils # Seg Neutrophils # Man Lymphocytes # (Manual) D-Dimer ABG pH POC ABG pCO2 POC ABG pO2 ABG pO2 ABG HCO3 ABG O2 Saturation ABG Base Excess ABG Hemoglobin ABG Oxyhemoglobin ABG Sodium ABG Potassium ABG Chloride ABG Glucose Oxyhemoglobin Chloride 95.7 L Carbon Dioxide 37 H BUN 20 H Creatinine 0.4 L Glucose 125 H POC Glucose 137 H Calcium 8.1 L Ferritin Lactate Dehydrogenase C-Reactive Protein Total Protein Albumin Arterial Blood Glucose Arterial Blood Ionized Calcium SARS-CoV-2 IgG Ab 07/19/20 07/19/20 07/20/20 16:29 17:28 00:25 WBC RBC Hgb Lymph % (Auto) Lymph # (Auto) Seg Neuts % (Manual) Lymphocytes % (Manual) Seg Neutrophils # Seg Neutrophils # Man Lymphocytes # (Manual) D-Dimer ABG pH POC ABG pCO2 53.4 H POC ABG pO2 71.0 L ABG pO2 ABG HCO3 ABG O2 Saturation ABG Base Excess ABG Hemoglobin 11.2 L ABG Oxyhemoglobin 93.6 L ABG Sodium 130.9 L ABG Potassium ABG Chloride 95.0 L ABG Glucose 188 H Oxyhemoglobin Chloride Carbon Dioxide BUN Creatinine Glucose POC Glucose 174 H 188 H Calcium Ferritin Lactate Dehydrogenase C-Reactive Protein Total Protein Albumin Arterial Blood Glucose 188 H Arterial Blood Ionized Calcium 4.4 L SARS-CoV-2 IgG Ab 07/20/20 07/20/20 07/20/20 04:14 05:23 12:12 WBC RBC Hgb Lymph % (Auto) Lymph # (Auto) Seg Neuts % (Manual) Lymphocytes % (Manual) Seg Neutrophils # Seg Neutrophils # Man Lymphocytes # (Manual) D-Dimer ABG pH POC ABG pCO2 52.7 H POC ABG pO2 59.5 L ABG pO2 ABG HCO3 ABG O2 Saturation ABG Base Excess ABG Hemoglobin 10.6 L ABG Oxyhemoglobin ABG Sodium 134.4 L ABG Potassium ABG Chloride ABG Glucose 176 H Oxyhemoglobin Chloride Carbon Dioxide BUN Creatinine Glucose POC Glucose 212 H 190 H Calcium Ferritin Lactate Dehydrogenase C-Reactive Protein Total Protein Albumin Arterial Blood Glucose 176 H Arterial Blood Ionized Calcium 4.5 L SARS-CoV-2 IgG Ab 07/20/20 07/21/20 07/21/20 16:59 00:01 04:30 WBC RBC Hgb Lymph % (Auto) Lymph # (Auto) Seg Neuts % (Manual) Lymphocytes % (Manual) Seg Neutrophils # Seg Neutrophils # Man Lymphocytes # (Manual) D-Dimer ABG pH 7.468 H POC ABG pCO2 POC ABG pO2 63.3 L ABG pO2 ABG HCO3 ABG O2 Saturation ABG Base Excess ABG Hemoglobin 11 L ABG Oxyhemoglobin ABG Sodium 135.0 L ABG Potassium ABG Chloride ABG Glucose 204 H Oxyhemoglobin Chloride Carbon Dioxide BUN Creatinine Glucose POC Glucose 201 H 177 H Calcium Ferritin Lactate Dehydrogenase C-Reactive Protein Total Protein Albumin Arterial Blood Glucose 204 H Arterial Blood Ionized Calcium 4.5 L SARS-CoV-2 IgG Ab 07/21/20 07/21/20 07/21/20 05:26 11:50 17:16 WBC RBC Hgb Lymph % (Auto) Lymph # (Auto) Seg Neuts % (Manual) Lymphocytes % (Manual) Seg Neutrophils # Seg Neutrophils # Man Lymphocytes # (Manual) D-Dimer ABG pH POC ABG pCO2 POC ABG pO2 ABG pO2 ABG HCO3 ABG O2 Saturation ABG Base Excess ABG Hemoglobin ABG Oxyhemoglobin ABG Sodium ABG Potassium ABG Chloride ABG Glucose Oxyhemoglobin Chloride Carbon Dioxide BUN Creatinine Glucose POC Glucose 175 H 157 H 148 H Calcium Ferritin Lactate Dehydrogenase C-Reactive Protein Total Protein Albumin Arterial Blood Glucose Arterial Blood Ionized Calcium SARS-CoV-2 IgG Ab 07/22/20 07/22/20 07/22/20 00:01 03:26 05:16 WBC RBC Hgb Lymph % (Auto) Lymph # (Auto) Seg Neuts % (Manual) Lymphocytes % (Manual) Seg Neutrophils # Seg Neutrophils # Man Lymphocytes # (Manual) D-Dimer ABG pH POC ABG pCO2 POC ABG pO2 54.2 L ABG pO2 ABG HCO3 ABG O2 Saturation ABG Base Excess ABG Hemoglobin 10.9 L ABG Oxyhemoglobin ABG Sodium 133.7 L ABG Potassium ABG Chloride ABG Glucose 217 H Oxyhemoglobin Chloride Carbon Dioxide BUN Creatinine Glucose POC Glucose 172 H 182 H Calcium Ferritin Lactate Dehydrogenase C-Reactive Protein Total Protein Albumin Arterial Blood Glucose 217 H Arterial Blood Ionized Calcium 4.5 L SARS-CoV-2 IgG Ab 07/22/20 11:43 WBC RBC Hgb Lymph % (Auto) Lymph # (Auto) Seg Neuts % (Manual) Lymphocytes % (Manual) Seg Neutrophils # Seg Neutrophils # Man Lymphocytes # (Manual) D-Dimer ABG pH POC ABG pCO2 POC ABG pO2 ABG pO2 ABG HCO3 ABG O2 Saturation ABG Base Excess ABG Hemoglobin ABG Oxyhemoglobin ABG Sodium ABG Potassium ABG Chloride ABG Glucose Oxyhemoglobin Chloride Carbon Dioxide BUN Creatinine Glucose POC Glucose 159 H Calcium Ferritin Lactate Dehydrogenase C-Reactive Protein Total Protein Albumin Arterial Blood Glucose Arterial Blood Ionized Calcium SARS-CoV-2 IgG Ab Chest x-ray: other (nonbe today) Allied health notes reviewed: nursing
--- NOTE | 2020-07-22 16:01 | Progress Note ---
Assessment and Plan --Acute asthma exacerbation on iv steroid Oxygen supplementation as needed Continue montelukast Monitor oxygen saturations closely -- COVID-19 Tested positive for COVID-19 in [place] iv steroid, s/p Remdesivir for 5 days s/p convalescent plasma transfusion Procalcitonin <0.05, ID on board follow ferritin, ldh, d-dimer levels -- Acute hypoxic respiratory failure Now intubated on 07/09/20 overnight From COVID-19 and asthma exacerbation Continue steroids Continue oxygen supplementation -- GERD (gastroesophageal reflux disease) cont Pantoprazole --SLE (systemic lupus erythematosus related syndrome) Continue home medications-hydroxychloroquine -- DVT prophylaxis Lovenox 30 mg twice daily -- Full code status The high probability of a clinically significant, sudden or life threatening deterioration of the [[facility], respiratory, HOSPITAL CHIEF EXECUTIVE OFFICER] system(s) required my full and direct attention, intervention and personal management. The aggregate critical care time was [33] minutes. This time is in addition to time spent performing reported procedures but includes the following: [x] Data Review and interpretation [x] Patient assessment and monitoring of vital signs [x] Documentation [x] Medication orders and management brief History: 50-year-old female with a past medical history of asthma, hypertension, and lupus complains of generalized body weakness, fever and shortness of breath. Patient states the symptoms started right after she was discharged from [place] on 07/05. She has associated wheezing, fever, cough and she has been using her inhalers with no significant effect. She also has associated diarrhea. Of note, she was hospitalized here in [facility] on 06/28 for asthma exacerbation and had a negative Covid test during the admission. She was treated and discharged. She presented to [facility] for further evaluation after discharge from here and over there, she was found to have positive COVID-19 test and she was placed on steroids and subsequently discharged on Eliquis prophylaxis for DVT. She states that she did not receive remdesivir during the admission. She was discharged from [place] on 07/05. She went home and felt worse. She said that she passed out about 2 times. Due to persistent symptoms, she called EMS who brought her to [facility] for further evaluation. Daily course: 07/07. Patient seen and examined at bedside this morning. Patient is wheezing and slightly short of breath. Change steroids to Solu-Medrol 60 every 6. Added formoterol and budesonide. ID evaluation pending. Started patient on remdesivir as she is short of breath. 07/07: Placed on BIPAP this AM. Will need pulm evaluation. Solumedrol 60mg q6. STAT blood gas ordered. She will be transferred to [facility]. 07/08: Patient took oxygen off and attempts to go to the bathroom and subsequently became hypoxemic with sats down into the low 80s. Patient became weak short of breath. After that time patient had persistent coughing and cannot maintain sats until nonrebreather was placed. Patient is transferred to the ICU unit and monitored for respiratory failure possibly requiring intubation. 07/09: ID recommended for convalescent plasma, ordered. Patient intubated overnight. Continue to monitor clinically, scheduled lab, follow inflammatory markers 07/10: Wait for convalescent plasma transfusion, wean off from ventilator as tolerated 07/11: Called patient's daughter and updated. Continue to wean off vent as tolerated, continue tube feeding, monitor vital sign CBC BMP daily. 07/12: remains intubated and sedated. follow inflammatory markers - wean off vent as tolerated 07/13: wean off vent as tolerated, cxr in the am. reviewed vitals 07/14: remains intubated, has not received convalescent plasma yet. Reviewed vitals, tolerating tube feeding. Wean off vent per critical care as tolerated. 07/15: cont to provide supportive care, wean off vent as tolerated - difficult to wean off. 07/16: CXR findings improving, cont to wean off vent 07/17: Follow inflammatory markers, monitor off antibiotics. Wean off vent per pulmonary as tolerated 07/18: Wean off vent per pulmonary as tolerated,Follow inflammatory markers, monitor off antibiotics. 07/19: Wean off vent per pulmonary as tolerated,Follow inflammatory markers, monitor off antibiotics. SBT trial 07/20: Wean off vent as tolerated, continue supportive care, follow inflammatory markers 07/21: continue supportive care, follow inflammatory markers, wean off vent as tolerated 07/22: Continue to wean off from ventilator as tolerated per pulmonary recommendation, follow inflammatory markers. Repeat CBC BMP in the morning. We will repeat Covid test tomorrow to see if patient cleared the infection. Subjective Date of service: 07/22/20 Principal diagnosis: Ac hypoxemic resp failure; PNA; COVID-19 infxn; SLE; Asthma exacerbation Interval history: Patient seen and examined Patient remains intubated on mechanical ventilation Discussed with RN at the bedside, on tube feeding Reviewed vitals, Objective - Exam Narrative Exam: GENERAL: well-developed obese -[place] female lying on bed intubated and sedated HEENT: Normocephalic. Atraumatic. No conjunctival congestion or icterus. Patient has moist mucous membranes. NECK: Supple. Trachea midline. ET tube in place, intubated with mechanical ventilation CHEST/LUNGS: Diffuse expiratory wheezes, coarse breath sound bilaterally HEART/CARDIOVASCULAR: Regular in rate and rhythm. S1 and S2 positive. ABDOMEN: Abdomen is soft, nontender. Patient has normal bowel sounds. SKIN: There is no rash. Warm and dry. NEURO: Sedated MUSCULOSKELETAL: No joint effusion or tenderness. EXTRIMITY: No edema, no cyanosis or clubbing. PSYCH: Unable to assess - Constitutional Vitals: Vital Signs - 12hr 07/22/20 07/22/20 07/22/20 04:17 04:30 05:00 Temperature Pulse Rate 65 69 68 Pulse Rate [ Bilateral Throughout] Pulse Rate [ From Monitor] Respiratory 19 16 Rate Respiratory Rate [Bilateral Throughout] Blood Pressure 101/57 105/60 122/59 O2 Sat by Pulse 92 90 91 Oximetry 07/22/20 07/22/20 07/22/20 05:30 06:00 06:30 Temperature Pulse Rate 70 66 80 Pulse Rate [ Bilateral Throughout] Pulse Rate [ From Monitor] Respiratory 18 18 26 H Rate Respiratory Rate [Bilateral Throughout] Blood Pressure 105/58 109/54 116/74 O2 Sat by Pulse 91 91 89 Oximetry 07/22/20 07/22/20 07/22/20 07:00 07:30 08:00 Temperature 98.6 F Pulse Rate 66 67 68 Pulse Rate [ Bilateral Throughout] Pulse Rate [ 66 From Monitor] Respiratory 14 15 32 H Rate Respiratory Rate [Bilateral Throughout] Blood Pressure 101/60 103/67 99/72 O2 Sat by Pulse 90 92 92 Oximetry 07/22/20 07/22/20 07/22/20 08:30 08:33 09:00 Temperature Pulse Rate 76 79 76 Pulse Rate [ Bilateral Throughout] Pulse Rate [ From Monitor] Respiratory 20 20 Rate Respiratory Rate [Bilateral Throughout] Blood Pressure 110/65 110/65 118/72 O2 Sat by Pulse 93 92 92 Oximetry 07/22/20 07/22/20 07/22/20 09:10 09:30 10:00 Temperature Pulse Rate 80 71 Pulse Rate [ 80 Bilateral Throughout] Pulse Rate [ From Monitor] Respiratory 25 H 16 Rate Respiratory 24 Rate [Bilateral Throughout] Blood Pressure 123/72 114/59 O2 Sat by Pulse 92 90 Oximetry 07/22/20 07/22/20 07/22/20 10:30 11:00 11:30 Temperature Pulse Rate 74 74 72 Pulse Rate [ Bilateral Throughout] Pulse Rate [ From Monitor] Respiratory 17 15 14 Rate Respiratory Rate [Bilateral Throughout] Blood Pressure 112/64 103/62 116/71 O2 Sat by Pulse 91 92 91 Oximetry 07/22/20 07/22/20 07/22/20 12:00 12:30 12:46 Temperature Pulse Rate 73 68 76 Pulse Rate [ Bilateral Throughout] Pulse Rate [ From Monitor] Respiratory 19 13 Rate Respiratory Rate [Bilateral Throughout] Blood Pressure 101/65 102/59 122/75 O2 Sat by Pulse 89 90 93 Oximetry 07/22/20 07/22/20 07/22/20 13:00 13:30 14:00 Temperature Pulse Rate 84 75 69 Pulse Rate [ Bilateral Throughout] Pulse Rate [ From Monitor] Respiratory 21 28 H 21 Rate Respiratory Rate [Bilateral Throughout] Blood Pressure 112/65 103/56 118/67 O2 Sat by Pulse 90 88 87 Oximetry 07/22/20 14:30 Temperature Pulse Rate 67 Pulse Rate [ Bilateral Throughout] Pulse Rate [ From Monitor] Respiratory 17 Rate Respiratory Rate [Bilateral Throughout] Blood Pressure 104/61 O2 Sat by Pulse 88 Oximetry - Labs CBC & Chem 7: 07/19/20 08:30 07/19/20 08:30 Labs: Abnormal lab results 07/21/20 07/22/20 07/22/20 Range/Units 17:16 00:01 03:26 POC ABG pO2 54.2 L (83-108) mmHg ABG Hemoglobin 10.9 L (12.0-17.5) ABG Sodium 133.7 L (136.0-145.0) mmol/L ABG Glucose 217 H (65-95) mg/dL POC Glucose 148 H 172 H (70-105) mg/dL Arterial Blood Glucose 217 H (65-95) mg/dL Arterial Blood Ionized Calcium 4.5 L (4.6-5.3) mg/dL 07/22/20 07/22/20 Range/Units 05:16 11:43 POC ABG pO2 (83-108) mmHg ABG Hemoglobin (12.0-17.5) ABG Sodium (136.0-145.0) mmol/L ABG Glucose (65-95) mg/dL POC Glucose 182 H 159 H (70-105) mg/dL Arterial Blood Glucose (65-95) mg/dL Arterial Blood Ionized Calcium (4.6-5.3) mg/dL
[2020-07-22] MEDS: INSULIN GLARGINE 100 UNITS/ML SUB-Q SCH (17:32)
[2020-07-23 05:01] LABS: ABG Base Excess 7.5 mmol/L (-2.0-3.0); ABG HCO3 32.4 mmol/L (20.0-26.0); ABG Methemoglobin 0.6 % (0.0-1.5); ABG PCO2 47.4 mm Hg; ABG PH 7.453 pH Units (7.350-7.450); ABG PO2 84.8 mm Hg (80.0-90.0)
[2020-07-23] MEDS: INSULIN REGULAR, HUMAN 100 UNIT/ML 3ML VIAL SUB-Q SCH ×4 (05:02→17:40)
[2020-07-23] MEDS: methylPREDNISolone Sod Succinate 40 MG/1 ML INJ IV SCH ×3 (05:02→23:00)
[2020-07-23] MEDS: POLYETHYLENE GLYCOL 3350 17 GM POWDER PO SCH (07:29)
[2020-07-23] MEDS: DOCUSATE SODIUM 100 MG/10 ML ORAL LIQD PO SCH ×4 (07:29→22:49)
[2020-07-23] MEDS: ARFORMOTEROL 15 MCG/2 ML NEBU IH SCH ×2 (08:37→19:26)
[2020-07-23] MEDS: BUDESONIDE 0.5 MG/2 ML NEBU IH SCH ×2 (08:38→19:26)
[2020-07-23] MEDS: ALBUTEROL 2.5 MG/3 ML NEBU IH SCH ×3 (08:38→19:26)
[2020-07-23] MEDS: MIDAZOLAM 100 MG in SODIUM CHLORIDE 0.9% 80 ML IV SCH (08:41)
[2020-07-23] MEDS: fentaNYL DRIP Premix 2,000 MCG/100 ML BAG IV SCH ×2 (09:08→18:27)
[2020-07-23] MEDS: ASCORBIC ACID 500 MG TAB PO SCH ×2 (09:13→22:49)
[2020-07-23] MEDS: QUEtiapine 100 MG TAB PO SCH ×2 (09:13→22:49)
[2020-07-23] MEDS: HYDROXYCHLOROQUINE 200 MG TAB PO SCH (09:13)
[2020-07-23] MEDS: VENLAFAXINE 37.5 MG TAB PO SCH (09:13)
[2020-07-23] MEDS: ASPIRIN 81 MG TAB CHEW PO SCH (09:13)
[2020-07-23] MEDS: ENOXAPARIN 30 MG/0.3 ML INJ SUB-Q SCH ×2 (09:14→22:49)
[2020-07-23] MEDS: ZINC SULFATE 220 MG CAP PO SCH ×2 (09:45→21:30)
[2020-07-23] MEDS: LANSOPRAZOLE 30 MG SOLUTAB FEEDTUBE SCH (09:45)
--- NOTE | 2020-07-23 12:59 | Progress Note ---
Assessment and Plan Acute hypoxemic respiratory failure, now on MVS Bilateral pneumonia, left greater than right lungs. COVID-19 infection. History of congestive heart failure. History of lupus erythematosus. Leukocytosis. Tobacco use disorder. Acute asthma exacerbation. History of hypertension. Obesity - repeat COVID-19 test is positive - increased peep to 14 cm H2O - reduced FiO2 to 75% - continue slow systemic steroids taper (reduced frequency from q6h to q8h) - continue to wean supplemental oxygen for target O2 sat's > 92% - no new issues otherwise, continue care as below; - continue low dose SSI - continue Seroquel 300 mg p.o. bid - continue airborne and contact isolation - continue Zinc & Vit C supplementaion - complete Remdesivir - empiric AB's coverage per ID rec's otherwise - continue systemic steroids for Asthma / severe COVID infection - continue Daily SAT and SBT assessment as tolerated - VAP bundle addressed - continue lung protective strategies - continue bronchodilators with pulmonary hygiene per RT - wean per pulmonary driven protocols otherwise - accuchecks with glycemic control per SSI (While critically ill target blood glucose of 140-180 mg/dL; avoid hypoglycemia) - sedation prn for target RASS -1 to -2 - avoid nephrotoxins, renally dose all medications - continue to avoid benzodiazepine's, reduce the possibility of delirium - prn analgesia per CPOT score - Maintenance of sleep-wake cycle, avoid delirium - continue enteral nutritional support at goal rate as tolerated - G.I. & VTE prophylaxis - PT/OT/ROM exercises - continue mobility protocols for pressure ulcer prophylaxis - Monitor hemodynamics closely - continue other care per attending / other consultants - discharge planning ongoing concurrently .... Re-evaluate in am & prn CONDITION: CRITICAL PROGNOSIS: GUARDED CODE STATUS: FULL CODE The high probability of a clinically significant, sudden or life-threatening deterioration of the [respiratory, cardiovascular & neurologic] system(s) required my full and direct attention, intervention and personal management. The aggregate critical care time was [35] minutes without overlap. Time includes spent on; [x] Data Review and interpretation [x] Patient assessment and monitoring of vital signs [x] Documentation [x] Medication orders and management Subjective Date of service: 07/23/20 Principal diagnosis: Ac hypoxemic resp failure; PNA; COVID-19 infxn; SLE; Asthma exacerbation Interval history: Patient is seen today for: Acute hypoxemic respiratory failure; Bilateral pneumonia; COVID-19 infection; H/O CHF; SLE; Acute asthma exacerbation. HTN; Obesity Seen and examined at bedside; 24hour events reviewed; nursing and respiratory care staff consulted; no adverse overnight events reported to me; resting peacefully in bed; remains on MVS; FiO2 up to 90% overnight; No N/V/F/C/chest pains Objective Vital Signs - 12hr 07/23/20 07/23/20 07/23/20 01:00 01:30 02:00 Temperature Pulse Rate 85 79 77 Pulse Rate [ Bilateral Throughout] Pulse Rate [ From Monitor] Respiratory 21 20 17 Rate Respiratory Rate [Bilateral Throughout] Blood Pressure 116/54 110/55 106/55 O2 Sat by Pulse 92 92 93 Oximetry 07/23/20 07/23/20 07/23/20 02:30 03:00 03:30 Temperature Pulse Rate 81 88 79 Pulse Rate [ Bilateral Throughout] Pulse Rate [ From Monitor] Respiratory 15 20 20 Rate Respiratory Rate [Bilateral Throughout] Blood Pressure 101/58 103/57 109/55 O2 Sat by Pulse 94 94 94 Oximetry 07/23/20 07/23/20 07/23/20 03:48 04:00 04:19 Temperature 99.2 F Pulse Rate 76 84 Pulse Rate [ Bilateral Throughout] Pulse Rate [ 74 From Monitor] Respiratory 19 Rate Respiratory Rate [Bilateral Throughout] Blood Pressure 101/59 116/64 O2 Sat by Pulse 96 84 Oximetry 07/23/20 07/23/20 07/23/20 04:30 05:00 05:30 Temperature Pulse Rate 89 77 73 Pulse Rate [ Bilateral Throughout] Pulse Rate [ From Monitor] Respiratory 25 H 19 19 Rate Respiratory Rate [Bilateral Throughout] Blood Pressure 114/69 109/63 103/57 O2 Sat by Pulse 96 96 97 Oximetry 07/23/20 07/23/20 07/23/20 06:00 06:30 07:00 Temperature Pulse Rate 72 83 85 Pulse Rate [ Bilateral Throughout] Pulse Rate [ From Monitor] Respiratory 18 31 H 28 H Rate Respiratory Rate [Bilateral Throughout] Blood Pressure 114/59 107/57 121/73 O2 Sat by Pulse 97 98 96 Oximetry 07/23/20 07/23/20 08:19 08:38 Temperature Pulse Rate 73 Pulse Rate [ 83 Bilateral Throughout] Pulse Rate [ From Monitor] Respiratory Rate Respiratory 22 Rate [Bilateral Throughout] Blood Pressure 123/87 O2 Sat by Pulse 97 Oximetry Constitutional: no acute distress, asleep, other (middle aged obese female with mildly increased respiratory effort at rest on MVS) Eyes: non-icteric ENT: oropharynx moist, other (ETT 7.5cm, 22cm YANET) Neck: supple, no lymphadenopathy, no JVD Effort: mildly labored Ascultation: Bilateral: diminished breath sounds, rhonchi (scant ) Percussion: Bilateral: not dull Cardiovascular: regular rate and rhythm, other (S1,S2) Gastrointestinal: normoactive bowel sounds, soft, non-tender, non-distended Integumentary: normal Extremities: no cyanosis, no edema, pulses normal, no ischemia or petechiae Neurologic: normal mental status, non-focal exam (moves extremities), pupils equal and round Psychiatric: other (sedated) CBC and BMP: 07/19/20 08:30 07/19/20 08:30 ABG, PT/INR, D-dimer: ABG ABG pH 7.453 pH Units (7.350-7.450) H 07/23/20 04:53 POC ABG pCO2 46.1 mmHg (32.0-48.0) 07/22/20 03:26 ABG pCO2 47.4 mm Hg 07/23/20 04:53 POC ABG pO2 54.2 mmHg (83-108) L 07/22/20 03:26 ABG pO2 84.8 mm Hg (80.0-90.0) 07/23/20 04:53 POC ABG HCO3 30.0 07/22/20 03:26 ABG O2 Saturation 97.0 % (95.0-99.0) 07/23/20 04:53 PT/INR, D-dimer D-Dimer 826.36 ng/mlDDU (0-234) H 07/13/20 07:20 Abnormal lab findings: Abnormal Labs 07/06/20 07/06/20 07/07/20 05:24 17:16 04:50 WBC 13.5 H 12.7 H RBC Hgb Lymph % (Auto) Lymph # (Auto) Seg Neuts % (Manual) 86.0 H 87.0 H Lymphocytes % (Manual) 6.0 L 9.0 L Seg Neutrophils # Seg Neutrophils # Man 11.6 H 11.0 H Lymphocytes # (Manual) 0.8 L 1.1 L D-Dimer ABG pH POC ABG pCO2 POC ABG pO2 ABG pO2 ABG HCO3 ABG O2 Saturation ABG Base Excess ABG Hemoglobin ABG Oxyhemoglobin ABG Sodium ABG Potassium ABG Chloride ABG Glucose Oxyhemoglobin Chloride Carbon Dioxide BUN Creatinine Glucose POC Glucose Calcium Ferritin Lactate Dehydrogenase 242 H C-Reactive Protein 7.30 H Total Protein Albumin Arterial Blood Glucose Arterial Blood Ionized Calcium Coronavirus (PCR) SARS-CoV-2 IgG Ab 07/07/20 07/07/20 07/07/20 04:50 14:22 14:22 WBC RBC Hgb Lymph % (Auto) Lymph # (Auto) Seg Neuts % (Manual) Lymphocytes % (Manual) Seg Neutrophils # Seg Neutrophils # Man Lymphocytes # (Manual) D-Dimer ABG pH POC ABG pCO2 POC ABG pO2 ABG pO2 ABG HCO3 ABG O2 Saturation ABG Base Excess ABG Hemoglobin ABG Oxyhemoglobin ABG Sodium ABG Potassium ABG Chloride ABG Glucose Oxyhemoglobin Chloride Carbon Dioxide BUN 18 H Creatinine Glucose 138 H POC Glucose Calcium Ferritin 228.2 H Lactate Dehydrogenase 277 H C-Reactive Protein Total Protein 5.9 L Albumin 3.4 L Arterial Blood Glucose Arterial Blood Ionized Calcium Coronavirus (PCR) SARS-CoV-2 IgG Ab 07/08/20 07/08/20 07/08/20 11:18 12:57 16:13 WBC RBC Hgb Lymph % (Auto) Lymph # (Auto) Seg Neuts % (Manual) Lymphocytes % (Manual) Seg Neutrophils # Seg Neutrophils # Man Lymphocytes # (Manual) D-Dimer ABG pH POC ABG pCO2 POC ABG pO2 ABG pO2 39.3 L* ABG HCO3 ABG O2 Saturation 76.8 L ABG Base Excess ABG Hemoglobin ABG Oxyhemoglobin ABG Sodium ABG Potassium ABG Chloride ABG Glucose Oxyhemoglobin 75.3 L Chloride Carbon Dioxide 20 L D BUN Creatinine Glucose 135 H POC Glucose 106 H Calcium 8.0 L Ferritin Lactate Dehydrogenase C-Reactive Protein Total Protein Albumin Arterial Blood Glucose Arterial Blood Ionized Calcium Coronavirus (PCR) SARS-CoV-2 IgG Ab 07/08/20 07/08/20 07/09/20 17:04 18:45 04:00 WBC 15.6 H RBC Hgb Lymph % (Auto) 4.7 L Lymph # (Auto) 0.7 L Seg Neuts % (Manual) Lymphocytes % (Manual) Seg Neutrophils # 14.2 H Seg Neutrophils # Man Lymphocytes # (Manual) D-Dimer ABG pH POC ABG pCO2 POC ABG pO2 ABG pO2 181.8 H ABG HCO3 ABG O2 Saturation 99.1 H ABG Base Excess ABG Hemoglobin 11.4 L ABG Oxyhemoglobin ABG Sodium ABG Potassium ABG Chloride ABG Glucose Oxyhemoglobin Chloride Carbon Dioxide BUN Creatinine Glucose POC Glucose 117 H Calcium Ferritin Lactate Dehydrogenase C-Reactive Protein Total Protein Albumin Arterial Blood Glucose Arterial Blood Ionized Calcium Coronavirus (PCR) SARS-CoV-2 IgG Ab 07/09/20 07/09/20 07/09/20 04:00 04:00 04:49 WBC RBC Hgb Lymph % (Auto) Lymph # (Auto) Seg Neuts % (Manual) Lymphocytes % (Manual) Seg Neutrophils # Seg Neutrophils # Man Lymphocytes # (Manual) D-Dimer ABG pH POC ABG pCO2 POC ABG pO2 ABG pO2 ABG HCO3 26.2 H ABG O2 Saturation ABG Base Excess ABG Hemoglobin 11.2 L ABG Oxyhemoglobin ABG Sodium ABG Potassium ABG Chloride ABG Glucose Oxyhemoglobin 94.9 L Chloride Carbon Dioxide BUN Creatinine Glucose 158 H POC Glucose Calcium 8.2 L Ferritin 320.0 H Lactate Dehydrogenase 391 H C-Reactive Protein 9.50 H Total Protein 5.9 L Albumin 3.2 L Arterial Blood Glucose Arterial Blood Ionized Calcium Coronavirus (PCR) SARS-CoV-2 IgG Ab 07/09/20 07/09/20 07/09/20 11:56 17:49 23:39 WBC RBC Hgb Lymph % (Auto) Lymph # (Auto) Seg Neuts % (Manual) Lymphocytes % (Manual) Seg Neutrophils # Seg Neutrophils # Man Lymphocytes # (Manual) D-Dimer ABG pH POC ABG pCO2 POC ABG pO2 ABG pO2 ABG HCO3 ABG O2 Saturation ABG Base Excess ABG Hemoglobin ABG Oxyhemoglobin ABG Sodium ABG Potassium ABG Chloride ABG Glucose Oxyhemoglobin Chloride Carbon Dioxide BUN Creatinine Glucose POC Glucose 156 H 119 H 145 H Calcium Ferritin Lactate Dehydrogenase C-Reactive Protein Total Protein Albumin Arterial Blood Glucose Arterial Blood Ionized Calcium Coronavirus (PCR) SARS-CoV-2 IgG Ab 07/10/20 07/10/20 07/10/20 03:32 05:26 11:22 WBC RBC Hgb Lymph % (Auto) Lymph # (Auto) Seg Neuts % (Manual) Lymphocytes % (Manual) Seg Neutrophils # Seg Neutrophils # Man Lymphocytes # (Manual) D-Dimer ABG pH POC ABG pCO2 POC ABG pO2 ABG pO2 75.7 L ABG HCO3 27.5 H ABG O2 Saturation ABG Base Excess ABG Hemoglobin 9.3 L ABG Oxyhemoglobin ABG Sodium ABG Potassium ABG Chloride ABG Glucose Oxyhemoglobin 94.7 L Chloride Carbon Dioxide BUN Creatinine Glucose POC Glucose 156 H 148 H Calcium Ferritin Lactate Dehydrogenase C-Reactive Protein Total Protein Albumin Arterial Blood Glucose Arterial Blood Ionized Calcium Coronavirus (PCR) SARS-CoV-2 IgG Ab 07/10/20 07/10/20 07/10/20 12:10 12:10 18:20 WBC 14.1 H RBC 3.33 L Hgb 9.9 L Lymph % (Auto) Lymph # (Auto) Seg Neuts % (Manual) 89.0 H Lymphocytes % (Manual) 8.0 L Seg Neutrophils # Seg Neutrophils # Man 12.5 H Lymphocytes # (Manual) 1.1 L D-Dimer ABG pH POC ABG pCO2 POC ABG pO2 ABG pO2 ABG HCO3 ABG O2 Saturation ABG Base Excess ABG Hemoglobin ABG Oxyhemoglobin ABG Sodium ABG Potassium ABG Chloride ABG Glucose Oxyhemoglobin Chloride Carbon Dioxide BUN 21 H Creatinine Glucose 154 H POC Glucose 181 H Calcium 8.0 L Ferritin Lactate Dehydrogenase C-Reactive Protein Total Protein 5.4 L Albumin 3.0 L Arterial Blood Glucose Arterial Blood Ionized Calcium Coronavirus (PCR) SARS-CoV-2 IgG Ab 07/10/20 07/11/20 07/11/20 23:51 04:05 05:43 WBC RBC Hgb Lymph % (Auto) Lymph # (Auto) Seg Neuts % (Manual) Lymphocytes % (Manual) Seg Neutrophils # Seg Neutrophils # Man Lymphocytes # (Manual) D-Dimer ABG pH 7.348 L POC ABG pCO2 POC ABG pO2 ABG pO2 93.6 H ABG HCO3 28.5 H ABG O2 Saturation ABG Base Excess ABG Hemoglobin 10.1 L ABG Oxyhemoglobin ABG Sodium ABG Potassium ABG Chloride ABG Glucose Oxyhemoglobin Chloride Carbon Dioxide BUN Creatinine Glucose POC Glucose 116 H 132 H Calcium Ferritin Lactate Dehydrogenase C-Reactive Protein Total Protein Albumin Arterial Blood Glucose Arterial Blood Ionized Calcium Coronavirus (PCR) SARS-CoV-2 IgG Ab 07/11/20 07/11/20 07/11/20 09:11 09:11 09:11 WBC 15.8 H RBC 3.44 L Hgb Lymph % (Auto) Lymph # (Auto) Seg Neuts % (Manual) 92.0 H Lymphocytes % (Manual) 4.0 L Seg Neutrophils # Seg Neutrophils # Man 14.5 H Lymphocytes # (Manual) 0.6 L D-Dimer 360.61 H ABG pH POC ABG pCO2 POC ABG pO2 ABG pO2 ABG HCO3 ABG O2 Saturation ABG Base Excess ABG Hemoglobin ABG Oxyhemoglobin ABG Sodium ABG Potassium ABG Chloride ABG Glucose Oxyhemoglobin Chloride 107.1 H Carbon Dioxide BUN 22 H Creatinine Glucose 149 H POC Glucose Calcium 7.8 L Ferritin Lactate Dehydrogenase 483 H C-Reactive Protein 2.30 H Total Protein 4.9 L Albumin 3.0 L Arterial Blood Glucose Arterial Blood Ionized Calcium Coronavirus (PCR) SARS-CoV-2 IgG Ab 07/11/20 07/11/20 07/11/20 09:11 12:16 17:55 WBC RBC Hgb Lymph % (Auto) Lymph # (Auto) Seg Neuts % (Manual) Lymphocytes % (Manual) Seg Neutrophils # Seg Neutrophils # Man Lymphocytes # (Manual) D-Dimer ABG pH POC ABG pCO2 POC ABG pO2 ABG pO2 ABG HCO3 ABG O2 Saturation ABG Base Excess ABG Hemoglobin ABG Oxyhemoglobin ABG Sodium ABG Potassium ABG Chloride ABG Glucose Oxyhemoglobin Chloride Carbon Dioxide BUN Creatinine Glucose POC Glucose 157 H 166 H Calcium Ferritin 371.2 H Lactate Dehydrogenase C-Reactive Protein Total Protein Albumin Arterial Blood Glucose Arterial Blood Ionized Calcium Coronavirus (PCR) SARS-CoV-2 IgG Ab 07/12/20 07/12/20 07/12/20 00:32 04:00 04:00 WBC RBC 3.52 L Hgb Lymph % (Auto) Lymph # (Auto) Seg Neuts % (Manual) 90.0 H Lymphocytes % (Manual) 4.0 L Seg Neutrophils # Seg Neutrophils # Man 9.5 H Lymphocytes # (Manual) 0.4 L D-Dimer ABG pH POC ABG pCO2 POC ABG pO2 ABG pO2 ABG HCO3 ABG O2 Saturation ABG Base Excess ABG Hemoglobin ABG Oxyhemoglobin ABG Sodium ABG Potassium ABG Chloride ABG Glucose Oxyhemoglobin Chloride Carbon Dioxide 31 H BUN 21 H Creatinine Glucose 175 H POC Glucose 178 H Calcium 8.0 L Ferritin Lactate Dehydrogenase C-Reactive Protein Total Protein 5.4 L Albumin 3.0 L Arterial Blood Glucose Arterial Blood Ionized Calcium Coronavirus (PCR) SARS-CoV-2 IgG Ab 07/12/20 07/12/20 07/12/20 04:01 05:47 12:09 WBC RBC Hgb Lymph % (Auto) Lymph # (Auto) Seg Neuts % (Manual) Lymphocytes % (Manual) Seg Neutrophils # Seg Neutrophils # Man Lymphocytes # (Manual) D-Dimer ABG pH 7.456 H POC ABG pCO2 POC ABG pO2 ABG pO2 ABG HCO3 ABG O2 Saturation ABG Base Excess ABG Hemoglobin 10.6 L ABG Oxyhemoglobin ABG Sodium ABG Potassium ABG Chloride ABG Glucose 177 H Oxyhemoglobin Chloride Carbon Dioxide BUN Creatinine Glucose POC Glucose 185 H 227 H Calcium Ferritin Lactate Dehydrogenase C-Reactive Protein Total Protein Albumin Arterial Blood Glucose 177 H Arterial Blood Ionized Calcium 4.5 L Coronavirus (PCR) SARS-CoV-2 IgG Ab 07/12/20 07/12/20 07/13/20 17:34 23:57 05:06 WBC RBC Hgb Lymph % (Auto) Lymph # (Auto) Seg Neuts % (Manual) Lymphocytes % (Manual) Seg Neutrophils # Seg Neutrophils # Man Lymphocytes # (Manual) D-Dimer ABG pH POC ABG pCO2 POC ABG pO2 ABG pO2 ABG HCO3 ABG O2 Saturation ABG Base Excess ABG Hemoglobin ABG Oxyhemoglobin ABG Sodium ABG Potassium ABG Chloride ABG Glucose Oxyhemoglobin Chloride Carbon Dioxide BUN Creatinine Glucose POC Glucose 202 H 163 H 166 H Calcium Ferritin Lactate Dehydrogenase C-Reactive Protein Total Protein Albumin Arterial Blood Glucose Arterial Blood Ionized Calcium Coronavirus (PCR) SARS-CoV-2 IgG Ab 07/13/20 07/13/20 07/13/20 07:20 07:20 07:20 WBC 20.5 H RBC Hgb Lymph % (Auto) Lymph # (Auto) Seg Neuts % (Manual) 93.0 H Lymphocytes % (Manual) 3.0 L Seg Neutrophils # Seg Neutrophils # Man 19.1 H Lymphocytes # (Manual) 0.6 L D-Dimer 826.36 H ABG pH POC ABG pCO2 POC ABG pO2 ABG pO2 ABG HCO3 ABG O2 Saturation ABG Base Excess ABG Hemoglobin ABG Oxyhemoglobin ABG Sodium ABG Potassium ABG Chloride ABG Glucose Oxyhemoglobin Chloride Carbon Dioxide 31 H BUN 25 H Creatinine Glucose 163 H POC Glucose Calcium 8.1 L Ferritin Lactate Dehydrogenase 512 H C-Reactive Protein 1.80 H Total Protein 5.8 L Albumin 3.2 L Arterial Blood Glucose Arterial Blood Ionized Calcium Coronavirus (PCR) SARS-CoV-2 IgG Ab 07/13/20 07/13/20 07/13/20 07:20 11:37 17:20 WBC RBC Hgb Lymph % (Auto) Lymph # (Auto) Seg Neuts % (Manual) Lymphocytes % (Manual) Seg Neutrophils # Seg Neutrophils # Man Lymphocytes # (Manual) D-Dimer ABG pH POC ABG pCO2 POC ABG pO2 ABG pO2 ABG HCO3 ABG O2 Saturation ABG Base Excess ABG Hemoglobin ABG Oxyhemoglobin ABG Sodium ABG Potassium ABG Chloride ABG Glucose Oxyhemoglobin Chloride Carbon Dioxide BUN Creatinine Glucose POC Glucose 232 H 210 H Calcium Ferritin 219.8 H Lactate Dehydrogenase C-Reactive Protein Total Protein Albumin Arterial Blood Glucose Arterial Blood Ionized Calcium Coronavirus (PCR) SARS-CoV-2 IgG Ab 07/13/20 07/13/20 07/14/20 23:57 Unknown 05:22 WBC RBC Hgb Lymph % (Auto) Lymph # (Auto) Seg Neuts % (Manual) Lymphocytes % (Manual) Seg Neutrophils # Seg Neutrophils # Man Lymphocytes # (Manual) D-Dimer ABG pH 7.341 L POC ABG pCO2 POC ABG pO2 133.0 H ABG pO2 56.5 L ABG HCO3 29.7 H ABG O2 Saturation 89.3 L ABG Base Excess ABG Hemoglobin 11.0 L ABG Oxyhemoglobin ABG Sodium ABG Potassium ABG Chloride ABG Glucose 207 H Oxyhemoglobin 87.7 L Chloride Carbon Dioxide BUN Creatinine Glucose POC Glucose 190 H Calcium Ferritin Lactate Dehydrogenase C-Reactive Protein Total Protein Albumin Arterial Blood Glucose 207 H Arterial Blood Ionized Calcium 4.5 L Coronavirus (PCR) SARS-CoV-2 IgG Ab 07/14/20 07/14/20 07/14/20 05:54 11:16 17:50 WBC RBC Hgb Lymph % (Auto) Lymph # (Auto) Seg Neuts % (Manual) Lymphocytes % (Manual) Seg Neutrophils # Seg Neutrophils # Man Lymphocytes # (Manual) D-Dimer ABG pH POC ABG pCO2 POC ABG pO2 ABG pO2 ABG HCO3 ABG O2 Saturation ABG Base Excess ABG Hemoglobin ABG Oxyhemoglobin ABG Sodium ABG Potassium ABG Chloride ABG Glucose Oxyhemoglobin Chloride Carbon Dioxide BUN Creatinine Glucose POC Glucose 206 H 196 H 205 H Calcium Ferritin Lactate Dehydrogenase C-Reactive Protein Total Protein Albumin Arterial Blood Glucose Arterial Blood Ionized Calcium Coronavirus (PCR) SARS-CoV-2 IgG Ab 07/14/20 07/15/20 07/15/20 23:28 03:16 06:12 WBC RBC Hgb Lymph % (Auto) Lymph # (Auto) Seg Neuts % (Manual) Lymphocytes % (Manual) Seg Neutrophils # Seg Neutrophils # Man Lymphocytes # (Manual) D-Dimer ABG pH POC ABG pCO2 49.2 H POC ABG pO2 120.3 H ABG pO2 ABG HCO3 ABG O2 Saturation ABG Base Excess ABG Hemoglobin 9.5 L ABG Oxyhemoglobin ABG Sodium ABG Potassium ABG Chloride ABG Glucose 148 H Oxyhemoglobin Chloride Carbon Dioxide BUN Creatinine Glucose POC Glucose 160 H 178 H Calcium Ferritin Lactate Dehydrogenase C-Reactive Protein Total Protein Albumin Arterial Blood Glucose 148 H Arterial Blood Ionized Calcium Coronavirus (PCR) SARS-CoV-2 IgG Ab 07/15/20 07/15/20 07/15/20 09:00 12:32 14:30 WBC RBC Hgb Lymph % (Auto) Lymph # (Auto) Seg Neuts % (Manual) Lymphocytes % (Manual) Seg Neutrophils # Seg Neutrophils # Man Lymphocytes # (Manual) D-Dimer ABG pH POC ABG pCO2 POC ABG pO2 ABG pO2 ABG HCO3 ABG O2 Saturation ABG Base Excess ABG Hemoglobin ABG Oxyhemoglobin ABG Sodium ABG Potassium ABG Chloride ABG Glucose Oxyhemoglobin Chloride Carbon Dioxide BUN Creatinine Glucose POC Glucose 173 H Calcium Ferritin Lactate Dehydrogenase 531 H C-Reactive Protein Total Protein Albumin Arterial Blood Glucose Arterial Blood Ionized Calcium Coronavirus (PCR) SARS-CoV-2 IgG Ab Reactive A 07/15/20 07/15/20 07/16/20 18:24 23:35 04:03 WBC RBC Hgb Lymph % (Auto) Lymph # (Auto) Seg Neuts % (Manual) Lymphocytes % (Manual) Seg Neutrophils # Seg Neutrophils # Man Lymphocytes # (Manual) D-Dimer ABG pH POC ABG pCO2 POC ABG pO2 ABG pO2 72.7 L ABG HCO3 35.5 H ABG O2 Saturation ABG Base Excess 9.4 H ABG Hemoglobin 10.6 L ABG Oxyhemoglobin ABG Sodium ABG Potassium ABG Chloride ABG Glucose Oxyhemoglobin 93.6 L Chloride Carbon Dioxide BUN Creatinine Glucose POC Glucose 173 H 181 H Calcium Ferritin Lactate Dehydrogenase C-Reactive Protein Total Protein Albumin Arterial Blood Glucose Arterial Blood Ionized Calcium Coronavirus (PCR) SARS-CoV-2 IgG Ab 07/16/20 07/16/20 07/16/20 05:35 09:00 09:00 WBC 16.5 H RBC 3.59 L Hgb Lymph % (Auto) Lymph # (Auto) Seg Neuts % (Manual) 96.0 H Lymphocytes % (Manual) 3.0 L Seg Neutrophils # Seg Neutrophils # Man 15.8 H Lymphocytes # (Manual) 0.5 L D-Dimer ABG pH POC ABG pCO2 POC ABG pO2 ABG pO2 ABG HCO3 ABG O2 Saturation ABG Base Excess ABG Hemoglobin ABG Oxyhemoglobin ABG Sodium ABG Potassium ABG Chloride ABG Glucose Oxyhemoglobin Chloride Carbon Dioxide 39 H D BUN 25 H Creatinine 0.4 L Glucose 167 H POC Glucose 129 H Calcium 8.3 L Ferritin Lactate Dehydrogenase C-Reactive Protein Total Protein Albumin Arterial Blood Glucose Arterial Blood Ionized Calcium Coronavirus (PCR) SARS-CoV-2 IgG Ab 07/16/20 07/16/20 07/17/20 12:32 18:28 00:09 WBC RBC Hgb Lymph % (Auto) Lymph # (Auto) Seg Neuts % (Manual) Lymphocytes % (Manual) Seg Neutrophils # Seg Neutrophils # Man Lymphocytes # (Manual) D-Dimer ABG pH POC ABG pCO2 POC ABG pO2 ABG pO2 ABG HCO3 ABG O2 Saturation ABG Base Excess ABG Hemoglobin ABG Oxyhemoglobin ABG Sodium ABG Potassium ABG Chloride ABG Glucose Oxyhemoglobin Chloride Carbon Dioxide BUN Creatinine Glucose POC Glucose 187 H 174 H 184 H Calcium Ferritin Lactate Dehydrogenase C-Reactive Protein Total Protein Albumin Arterial Blood Glucose Arterial Blood Ionized Calcium Coronavirus (PCR) SARS-CoV-2 IgG Ab 07/17/20 07/17/20 07/17/20 04:30 05:47 13:03 WBC RBC Hgb Lymph % (Auto) Lymph # (Auto) Seg Neuts % (Manual) Lymphocytes % (Manual) Seg Neutrophils # Seg Neutrophils # Man Lymphocytes # (Manual) D-Dimer ABG pH POC ABG pCO2 POC ABG pO2 ABG pO2 ABG HCO3 38.1 H ABG O2 Saturation ABG Base Excess 11.3 H ABG Hemoglobin 10.5 L ABG Oxyhemoglobin ABG Sodium ABG Potassium ABG Chloride ABG Glucose Oxyhemoglobin Chloride Carbon Dioxide BUN Creatinine Glucose POC Glucose 135 H 210 H Calcium Ferritin Lactate Dehydrogenase C-Reactive Protein Total Protein Albumin Arterial Blood Glucose Arterial Blood Ionized Calcium Coronavirus (PCR) SARS-CoV-2 IgG Ab 07/17/20 07/17/20 07/18/20 16:50 23:39 04:01 WBC RBC Hgb Lymph % (Auto) Lymph # (Auto) Seg Neuts % (Manual) Lymphocytes % (Manual) Seg Neutrophils # Seg Neutrophils # Man Lymphocytes # (Manual) D-Dimer ABG pH POC ABG pCO2 56.8 H POC ABG pO2 61.9 L ABG pO2 ABG HCO3 ABG O2 Saturation ABG Base Excess ABG Hemoglobin 11.7 L ABG Oxyhemoglobin ABG Sodium 134.2 L ABG Potassium 4.7 H ABG Chloride 97.0 L ABG Glucose 173 H Oxyhemoglobin Chloride Carbon Dioxide BUN Creatinine Glucose POC Glucose 193 H 163 H Calcium Ferritin Lactate Dehydrogenase C-Reactive Protein Total Protein Albumin Arterial Blood Glucose 173 H Arterial Blood Ionized Calcium Coronavirus (PCR) SARS-CoV-2 IgG Ab 07/18/20 07/18/20 07/18/20 05:41 12:03 17:26 WBC RBC Hgb Lymph % (Auto) Lymph # (Auto) Seg Neuts % (Manual) Lymphocytes % (Manual) Seg Neutrophils # Seg Neutrophils # Man Lymphocytes # (Manual) D-Dimer ABG pH POC ABG pCO2 POC ABG pO2 ABG pO2 ABG HCO3 ABG O2 Saturation ABG Base Excess ABG Hemoglobin ABG Oxyhemoglobin ABG Sodium ABG Potassium ABG Chloride ABG Glucose Oxyhemoglobin Chloride Carbon Dioxide BUN Creatinine Glucose POC Glucose 153 H 177 H 160 H Calcium Ferritin Lactate Dehydrogenase C-Reactive Protein Total Protein Albumin Arterial Blood Glucose Arterial Blood Ionized Calcium Coronavirus (PCR) SARS-CoV-2 IgG Ab 07/18/20 07/19/20 07/19/20 23:58 04:15 05:05 WBC RBC Hgb Lymph % (Auto) Lymph # (Auto) Seg Neuts % (Manual) Lymphocytes % (Manual) Seg Neutrophils # Seg Neutrophils # Man Lymphocytes # (Manual) D-Dimer ABG pH 7.465 H POC ABG pCO2 49.1 H POC ABG pO2 49.4 L ABG pO2 ABG HCO3 ABG O2 Saturation ABG Base Excess ABG Hemoglobin 11.6 L ABG Oxyhemoglobin ABG Sodium 132.3 L ABG Potassium ABG Chloride 97.0 L ABG Glucose 148 H Oxyhemoglobin Chloride Carbon Dioxide BUN Creatinine Glucose POC Glucose 144 H 117 H Calcium Ferritin Lactate Dehydrogenase C-Reactive Protein Total Protein Albumin Arterial Blood Glucose 148 H Arterial Blood Ionized Calcium Coronavirus (PCR) SARS-CoV-2 IgG Ab 07/19/20 07/19/20 07/19/20 08:30 08:30 13:21 WBC 17.2 H RBC 3.59 L Hgb Lymph % (Auto) Lymph # (Auto) Seg Neuts % (Manual) Lymphocytes % (Manual) Seg Neutrophils # Seg Neutrophils # Man Lymphocytes # (Manual) D-Dimer ABG pH POC ABG pCO2 POC ABG pO2 ABG pO2 ABG HCO3 ABG O2 Saturation ABG Base Excess ABG Hemoglobin ABG Oxyhemoglobin ABG Sodium ABG Potassium ABG Chloride ABG Glucose Oxyhemoglobin Chloride 95.7 L Carbon Dioxide 37 H BUN 20 H Creatinine 0.4 L Glucose 125 H POC Glucose 137 H Calcium 8.1 L Ferritin Lactate Dehydrogenase C-Reactive Protein Total Protein Albumin Arterial Blood Glucose Arterial Blood Ionized Calcium Coronavirus (PCR) SARS-CoV-2 IgG Ab 07/19/20 07/19/20 07/20/20 16:29 17:28 00:25 WBC RBC Hgb Lymph % (Auto) Lymph # (Auto) Seg Neuts % (Manual) Lymphocytes % (Manual) Seg Neutrophils # Seg Neutrophils # Man Lymphocytes # (Manual) D-Dimer ABG pH POC ABG pCO2 53.4 H POC ABG pO2 71.0 L ABG pO2 ABG HCO3 ABG O2 Saturation ABG Base Excess ABG Hemoglobin 11.2 L ABG Oxyhemoglobin 93.6 L ABG Sodium 130.9 L ABG Potassium ABG Chloride 95.0 L ABG Glucose 188 H Oxyhemoglobin Chloride Carbon Dioxide BUN Creatinine Glucose POC Glucose 174 H 188 H Calcium Ferritin Lactate Dehydrogenase C-Reactive Protein Total Protein Albumin Arterial Blood Glucose 188 H Arterial Blood Ionized Calcium 4.4 L Coronavirus (PCR) SARS-CoV-2 IgG Ab 07/20/20 07/20/20 07/20/20 04:14 05:23 12:12 WBC RBC Hgb Lymph % (Auto) Lymph # (Auto) Seg Neuts % (Manual) Lymphocytes % (Manual) Seg Neutrophils # Seg Neutrophils # Man Lymphocytes # (Manual) D-Dimer ABG pH POC ABG pCO2 52.7 H POC ABG pO2 59.5 L ABG pO2 ABG HCO3 ABG O2 Saturation ABG Base Excess ABG Hemoglobin 10.6 L ABG Oxyhemoglobin ABG Sodium 134.4 L ABG Potassium ABG Chloride ABG Glucose 176 H Oxyhemoglobin Chloride Carbon Dioxide BUN Creatinine Glucose POC Glucose 212 H 190 H Calcium Ferritin Lactate Dehydrogenase C-Reactive Protein Total Protein Albumin Arterial Blood Glucose 176 H Arterial Blood Ionized Calcium 4.5 L Coronavirus (PCR) SARS-CoV-2 IgG Ab 07/20/20 07/21/20 07/21/20 16:59 00:01 04:30 WBC RBC Hgb Lymph % (Auto) Lymph # (Auto) Seg Neuts % (Manual) Lymphocytes % (Manual) Seg Neutrophils # Seg Neutrophils # Man Lymphocytes # (Manual) D-Dimer ABG pH 7.468 H POC ABG pCO2 POC ABG pO2 63.3 L ABG pO2 ABG HCO3 ABG O2 Saturation ABG Base Excess ABG Hemoglobin 11 L ABG Oxyhemoglobin ABG Sodium 135.0 L ABG Potassium ABG Chloride ABG Glucose 204 H Oxyhemoglobin Chloride Carbon Dioxide BUN Creatinine Glucose POC Glucose 201 H 177 H Calcium Ferritin Lactate Dehydrogenase C-Reactive Protein Total Protein Albumin Arterial Blood Glucose 204 H Arterial Blood Ionized Calcium 4.5 L Coronavirus (PCR) SARS-CoV-2 IgG Ab 07/21/20 07/21/20 07/21/20 05:26 11:50 17:16 WBC RBC Hgb Lymph % (Auto) Lymph # (Auto) Seg Neuts % (Manual) Lymphocytes % (Manual) Seg Neutrophils # Seg Neutrophils # Man Lymphocytes # (Manual) D-Dimer ABG pH POC ABG pCO2 POC ABG pO2 ABG pO2 ABG HCO3 ABG O2 Saturation ABG Base Excess ABG Hemoglobin ABG Oxyhemoglobin ABG Sodium ABG Potassium ABG Chloride ABG Glucose Oxyhemoglobin Chloride Carbon Dioxide BUN Creatinine Glucose POC Glucose 175 H 157 H 148 H Calcium Ferritin Lactate Dehydrogenase C-Reactive Protein Total Protein Albumin Arterial Blood Glucose Arterial Blood Ionized Calcium Coronavirus (PCR) SARS-CoV-2 IgG Ab 07/22/20 07/22/20 07/22/20 00:01 03:26 05:16 WBC RBC Hgb Lymph % (Auto) Lymph # (Auto) Seg Neuts % (Manual) Lymphocytes % (Manual) Seg Neutrophils # Seg Neutrophils # Man Lymphocytes # (Manual) D-Dimer ABG pH POC ABG pCO2 POC ABG pO2 54.2 L ABG pO2 ABG HCO3 ABG O2 Saturation ABG Base Excess ABG Hemoglobin 10.9 L ABG Oxyhemoglobin ABG Sodium 133.7 L ABG Potassium ABG Chloride ABG Glucose 217 H Oxyhemoglobin Chloride Carbon Dioxide BUN Creatinine Glucose POC Glucose 172 H 182 H Calcium Ferritin Lactate Dehydrogenase C-Reactive Protein Total Protein Albumin Arterial Blood Glucose 217 H Arterial Blood Ionized Calcium 4.5 L Coronavirus (PCR) SARS-CoV-2 IgG Ab 07/22/20 07/22/20 07/23/20 11:43 17:08 04:53 WBC RBC Hgb Lymph % (Auto) Lymph # (Auto) Seg Neuts % (Manual) Lymphocytes % (Manual) Seg Neutrophils # Seg Neutrophils # Man Lymphocytes # (Manual) D-Dimer ABG pH 7.453 H POC ABG pCO2 POC ABG pO2 ABG pO2 ABG HCO3 32.4 H ABG O2 Saturation ABG Base Excess 7.5 H ABG Hemoglobin 10.7 L ABG Oxyhemoglobin ABG Sodium ABG Potassium ABG Chloride ABG Glucose Oxyhemoglobin Chloride Carbon Dioxide BUN Creatinine Glucose POC Glucose 159 H 163 H Calcium Ferritin Lactate Dehydrogenase C-Reactive Protein Total Protein Albumin Arterial Blood Glucose Arterial Blood Ionized Calcium Coronavirus (PCR) SARS-CoV-2 IgG Ab 07/23/20 07/23/20 07/23/20 04:54 11:50 Unknown WBC RBC Hgb Lymph % (Auto) Lymph # (Auto) Seg Neuts % (Manual) Lymphocytes % (Manual) Seg Neutrophils # Seg Neutrophils # Man Lymphocytes # (Manual) D-Dimer ABG pH POC ABG pCO2 POC ABG pO2 ABG pO2 ABG HCO3 ABG O2 Saturation ABG Base Excess ABG Hemoglobin ABG Oxyhemoglobin ABG Sodium ABG Potassium ABG Chloride ABG Glucose Oxyhemoglobin Chloride Carbon Dioxide BUN Creatinine Glucose POC Glucose 169 H 118 H Calcium Ferritin Lactate Dehydrogenase C-Reactive Protein Total Protein Albumin Arterial Blood Glucose Arterial Blood Ionized Calcium Coronavirus (PCR) Positive A SARS-CoV-2 IgG Ab Chest x-ray: image reviewed (stable top slightly worse bilateral infiltrates) Allied health notes reviewed: nursing
[2020-07-23 14:14] LABS: Hematocrit 32.1 % (30.3-42.9); Hemoglobin 10.7 gm/dl (10.1-14.3); Mean Corpuscular HGB Conc 33 % (30-34); Mean Corpuscular Volume 91 fl (79-97); Platelet Count 201 K/mm3 (140-440); Red Blood Count 3.54 M/mm3 (3.65-5.03)
[2020-07-23 14:27] LABS: Blood Urea Nitrogen 14 mg/dL (7-17); Calcium 8.2 mg/dL (8.4-10.2); Hemolysis Index 4
[2020-07-23 14:41] LABS: BUN/Creatinine Ratio 35
[2020-07-23 14:55] LABS: Basophils % (Manual) 0 % (0.0-1.8); Eosinophils % (Manual) 0 % (0.0-4.3); Total Cells Counted 100
[2020-07-23 14:56] LABS: Tear Drop Cells Few
[2020-07-23 14:57] LABS: Platelet Estimate Consistent w Auto
--- NOTE | 2020-07-23 15:30 | XRay Report ---
CHEST 1 VIEW INDICATION / CLINICAL INFORMATION: pneumonia new aspiration. COMPARISON: 07/19/2020 FINDINGS: SUPPORT DEVICES: Endotracheal tube, nasogastric tube, left-sided PICC line HEART / MEDIASTINUM: No significant abnormality. LUNGS / PLEURA: Bilateral airspace disease No pneumothorax. ADDITIONAL FINDINGS: No significant additional findings. IMPRESSION: Bilateral airspace disease unchanged from 07/19/2020 Signer Name: Raulito Denny MD FACR Signed: 07/23/2020 3:26 PM Workstation Name: [id number]
--- NOTE | 2020-07-23 17:04 | Progress Note ---
Assessment and Plan Assessment and plan: --Acute asthma exacerbation on iv steroid Oxygen supplementation as needed Continue montelukast Monitor oxygen saturations closely -- COVID-19 Tested positive for COVID-19 in [facility] iv steroid, s/p Remdesivir for 5 days s/p convalescent plasma transfusion Procalcitonin <0.05, ID on board follow ferritin, ldh, d-dimer levels -- Acute hypoxic respiratory failure Now intubated on 07/09/20 overnight From COVID-19 and asthma exacerbation Continue steroids Continue oxygen supplementation -- GERD (gastroesophageal reflux disease) cont Pantoprazole --SLE (systemic lupus erythematosus related syndrome) Continue home medications-hydroxychloroquine -- DVT prophylaxis Lovenox 30 mg twice daily -- Full code status brief History: 50-year-old female with a past medical history of asthma, hypertension, and lupus complains of generalized body weakness, fever and shortness of breath. Patient states the symptoms started right after she was discharged from [facility] on 07/05. She has associated wheezing, fever, cough and she has been using her inhalers with no significant effect. She also has associated diarrhea. Of note, she was hospitalized here in [facility] on 06/28 for asthma exacerbation and had a negative Covid test during the admission. She was treated and discharged. She presented to [facility] for further evaluation after discharge from here and over there, she was found to have positive COVID-19 test and she was placed on steroids and subsequently discharged on Eliquis prophylaxis for DVT. She states that she did not receive remdesivir during the admission. She was discharged from [facility] on 07/05. She went home and felt worse. She said that she passed out about 2 times. Due to persistent symptoms, she called EMS who brought her to [facility] for further evaluation. Daily course: 07/07. Patient seen and examined at bedside this morning. Patient is wheezing and slightly short of breath. Change steroids to Solu-Medrol 60 every 6. Added formoterol and budesonide. ID evaluation pending. Started patient on remdesivir as she is short of breath. 07/07: Placed on BIPAP this AM. Will need pulm evaluation. Solumedrol 60mg q6. STAT blood gas ordered. She will be transferred to [facility]. 07/08: Patient took oxygen off and attempts to go to the bathroom and subsequently became hypoxemic with sats down into the low 80s. Patient became weak short of breath. After that time patient had persistent coughing and cannot maintain sats until nonrebreather was placed. Patient is transferred to the ICU unit and monitored for respiratory failure possibly requiring intubation. 07/09: ID recommended for convalescent plasma, ordered. Patient intubated overnight. Continue to monitor clinically, scheduled lab, follow inflammatory markers 07/10: Wait for convalescent plasma transfusion, wean off from ventilator as tolerated 07/11: Called patient's daughter and updated. Continue to wean off vent as tolerated, continue tube feeding, monitor vital sign CBC BMP daily. 07/12: remains intubated and sedated. follow inflammatory markers - wean off vent as tolerated 07/13: wean off vent as tolerated, cxr in the am. reviewed vitals 07/14: remains intubated, has not received convalescent plasma yet. Reviewed vitals, tolerating tube feeding. Wean off vent per critical care as tolerated. 07/15: cont to provide supportive care, wean off vent as tolerated - difficult to wean off. 07/16: CXR findings improving, cont to wean off vent 07/17: Follow inflammatory markers, monitor off antibiotics. Wean off vent per pulmonary as tolerated 07/18: Wean off vent per pulmonary as tolerated,Follow inflammatory markers, monitor off antibiotics. 07/19: Wean off vent per pulmonary as tolerated,Follow inflammatory markers, monitor off antibiotics. SBT trial 07/20: Wean off vent as tolerated, continue supportive care, follow inflammatory markers 07/21: continue supportive care, follow inflammatory markers, wean off vent as tolerated 07/22: Continue to wean off from ventilator as tolerated per pulmonary recommendation, follow inflammatory markers. Repeat CBC BMP in the morning. We will repeat Covid test tomorrow to see if patient cleared the infection. 07/23. Continue to wean off from ventilator as tolerated per pulmonary recommen dation, follow inflammatory markers. Currently AC mode, rate 16, tidal volume 450 with FiO2 75%vand PEEP 14 The high probability of a clinically significant, sudden or life threatening deterioration of the [[employer], respiratory, [employer]IP[employer] HAND] system(s) required my full and direct attention, intervention and personal management. The aggregate critical care time was [32] minutes. This time is in addition to time spent performing reported procedures but includes the following: [x] Data Review and interpretation [x] Patient assessment and monitoring of vital signs [x] Documentation [x] Medication orders and management History Interval history: No new issues Hospitalist Physical - Constitutional Vitals: Temp Pulse Resp BP Pulse Ox 98.6 F 68 17 99/66 94 07/23/20 12:00 07/23/20 14:00 07/23/20 14:00 07/23/20 14:00 07/23/20 14:00 General appearance: Present: no acute distress, well-nourished - EENT Eyes: Present: PERRL, EOM intact ENT: hearing intact, clear oral mucosa, dentition normal - Neck Neck: Present: supple, normal ROM - Respiratory Respiratory effort: normal Respiratory: bilateral: CTA - Cardiovascular Rhythm: regular Heart Sounds: Present: S1 & S2. Absent: gallop, rub - Extremities Extremities: no ischemia, No edema, Full ROM - Abdominal General gastrointestinal: soft, non-tender, non-distended, normal bowel sounds - Integumentary Integumentary: Present: clear, warm, dry - Neurologic Neurologic: CNII-XII intact, moves all extremities Results - Labs CBC & Chem 7: 07/23/20 04:00 07/23/20 04:00 Labs: Laboratory Last Values WBC 11.6 K/mm3 (4.5-11.0) H 07/23/20 04:00 RBC 3.54 M/mm3 (3.65-5.03) L 07/23/20 04:00 Hgb 10.7 gm/dl (10.1-14.3) 07/23/20 04:00 Hct 32.1 % (30.3-42.9) 07/23/20 04:00 MCV 91 fl (79-97) 07/23/20 04:00 MCH 30 pg (28-32) 07/23/20 04:00 MCHC 33 % (30-34) 07/23/20 04:00 RDW 15.0 % (13.2-15.2) 07/23/20 04:00 Plt Count 201 K/mm3 (140-440) 07/23/20 04:00 Lymph % (Auto) 4.7 % (13.4-35.0) L 07/09/20 04:00 Gaines % (Auto) 4.0 % (0.0-7.3) 07/09/20 04:00 Eos % (Auto) 0.0 % (0.0-4.3) 07/09/20 04:00 Baso % (Auto) 0.1 % (0.0-1.8) 07/09/20 04:00 Lymph # (Auto) 0.7 K/mm3 (1.2-5.4) L 07/09/20 04:00 Gaines # (Auto) 0.6 K/mm3 (0.0-0.8) 07/09/20 04:00 Eos # (Auto) 0.0 K/mm3 (0.0-0.4) 07/09/20 04:00 Baso # (Auto) 0.0 K/mm3 (0.0-0.1) 07/09/20 04:00 Add Manual Diff Complete 07/23/20 04:00 Total Counted 100 07/23/20 04:00 Seg Neutrophils % Mechanical Handyman 07/16/20 09:00 Seg Neuts % (Manual) 94.0 % (40.0-70.0) H 07/23/20 04:00 Band Neutrophils % 0 % 07/23/20 04:00 Lymphocytes % (Manual) 5.0 % (13.4-35.0) L 07/23/20 04:00 Reactive Lymphs % (Man) 0 % 07/23/20 04:00 Monocytes % (Manual) 1.0 % (0.0-7.3) 07/23/20 04:00 Eosinophils % (Manual) 0 % (0.0-4.3) 07/23/20 04:00 Basophils % (Manual) 0 % (0.0-1.8) 07/23/20 04:00 Metamyelocytes % 0 % 07/23/20 04:00 Myelocytes % 0 % 07/23/20 04:00 Promyelocytes % 0 % 07/23/20 04:00 Blast Cells % 0 % 07/23/20 04:00 Nucleated RBC % Not Reportable 07/23/20 04:00 Seg Neutrophils # 14.2 K/mm3 (1.8-7.7) H 07/09/20 04:00 Seg Neutrophils # Man 10.9 K/mm3 (1.8-7.7) H 07/23/20 04:00 Band Neutrophils # 0.0 K/mm3 07/23/20 04:00 Lymphocytes # (Manual) 0.6 K/mm3 (1.2-5.4) L 07/23/20 04:00 Abs React Lymphs (Man) 0.0 K/mm3 07/23/20 04:00 Monocytes # (Manual) 0.1 K/mm3 (0.0-0.8) 07/23/20 04:00 Eosinophils # (Manual) 0.0 K/mm3 (0.0-0.4) 07/23/20 04:00 Basophils # (Manual) 0.0 K/mm3 (0.0-0.1) 07/23/20 04:00 Metamyelocytes # 0.0 K/mm3 07/23/20 04:00 Myelocytes # 0.0 K/mm3 07/23/20 04:00 Promyelocytes # 0.0 K/mm3 07/23/20 04:00 Blast Cells # 0.0 K/mm3 07/23/20 04:00 WBC Morphology Not Reportable 07/23/20 04:00 Hypersegmented Neuts Not Reportable 07/23/20 04:00 Hyposegmented Neuts Not Reportable 07/23/20 04:00 Hypogranular Neuts Not Reportable 07/23/20 04:00 Smudge Cells Not Reportable 07/23/20 04:00 Toxic Granulation Not Reportable 07/23/20 04:00 Toxic Vacuolation Not Reportable 07/23/20 04:00 Dohle Bodies Not Reportable 07/23/20 04:00 Pelger-Huet Anomaly Not Reportable 07/23/20 04:00 Savanna Rods Not Reportable 07/23/20 04:00 Platelet Estimate Consistent w auto 07/23/20 04:00 Clumped Platelets Not Reportable 07/23/20 04:00 Plt Clumps, EDTA Not Reportable 07/23/20 04:00 Large Platelets Not Reportable 07/23/20 04:00 Giant Platelets Not Reportable 07/23/20 04:00 Platelet Satelliting Not Reportable 07/23/20 04:00 Plt Morphology Comment Not Reportable 07/23/20 04:00 RBC Morphology Not Reportable 07/23/20 04:00 Dimorphic RBCs Not Reportable 07/23/20 04:00 Polychromasia Few 07/23/20 04:00 Hypochromasia Not Reportable 07/23/20 04:00 Poikilocytosis Not Reportable 07/23/20 04:00 Anisocytosis Not Reportable 07/23/20 04:00 Microcytosis Not Reportable 07/23/20 04:00 Macrocytosis Not Reportable 07/23/20 04:00 Spherocytes Not Reportable 07/23/20 04:00 Pappenheimer Bodies Not Reportable 07/23/20 04:00 Sickle Cells Not Reportable 07/23/20 04:00 Target Cells Not Reportable 07/23/20 04:00 Tear Drop Cells Few 07/23/20 04:00 Ovalocytes Not Reportable 07/23/20 04:00 Helmet Cells Not Reportable 07/23/20 04:00 [place] Bodies Not Reportable 07/23/20 04:00 [place] Rings Not Reportable 07/23/20 04:00 Kristan Cells Not Reportable 07/23/20 04:00 Bite Cells Not Reportable 07/23/20 04:00 Crenated Cell Not Reportable 07/23/20 04:00 Elliptocytes Not Reportable 07/23/20 04:00 Acanthocytes (Spur) Not Reportable 07/23/20 04:00 Rouleaux Not Reportable 07/23/20 04:00 Hemoglobin C Crystals Not Reportable 07/23/20 04:00 Schistocytes Not Reportable 07/23/20 04:00 Malaria parasites Not Reportable 07/23/20 04:00 Junaid Bodies Not Reportable 07/23/20 04:00 Hem Pathologist Commnt No 07/23/20 04:00 D-Dimer 826.36 ng/mlDDU (0-234) H 07/13/20 07:20 ABG pH 7.453 pH Units (7.350-7.450) H 07/23/20 04:53 POC ABG pCO2 46.1 mmHg (32.0-48.0) 07/22/20 03:26 ABG pCO2 47.4 mm Hg 07/23/20 04:53 POC ABG pO2 54.2 mmHg (83-108) L 07/22/20 03:26 ABG pO2 84.8 mm Hg (80.0-90.0) 07/23/20 04:53 POC ABG HCO3 30.0 07/22/20 03:26 ABG HCO3 32.4 mmol/L (20.0-26.0) H 07/23/20 04:53 ABG O2 Saturation 97.0 % (95.0-99.0) 07/23/20 04:53 ABG O2 Content 14.4 (0.0-44) 07/23/20 04:53 POC ABG Base Excess 5.0 07/22/20 03:26 ABG Base Excess 7.5 mmol/L (-2.0-3.0) H 07/23/20 04:53 ABG Hemoglobin 10.7 gm/dl (12.0-16.0) L 07/23/20 04:53 ABG Oxyhemoglobin 93.6 (94-98) L 07/19/20 16:29 ABG Carboxyhemoglobin 1.3 % (0.0-5.0) 07/23/20 04:53 ABG Methemoglobin 0.6 % (0.0-1.5) 07/23/20 04:53 ABG Sodium 133.7 mmol/L (136.0-145.0) L 07/22/20 03:26 ABG Potassium 4.2 mmol/L (3.40-4.50) 07/22/20 03:26 ABG Chloride 100.0 mmol/L (98-107) 07/22/20 03:26 ABG Glucose 217 mg/dL (65-95) H 07/22/20 03:26 Oxyhemoglobin 95.2 % (95.0-99.0) 07/23/20 04:53 Carboxyhemoglobin 0.7 (0.5-1.5) 07/19/20 16:29 FiO2 90 % 07/23/20 04:53 Sodium 137 mmol/L (137-145) 07/23/20 04:00 Potassium 3.9 mmol/L (3.6-5.0) 07/23/20 04:00 Chloride 99.6 mmol/L (98-107) 07/23/20 04:00 Carbon Dioxide 35 mmol/L (22-30) H 07/23/20 04:00 Anion Gap 6 mmol/L 07/23/20 04:00 BUN 14 mg/dL (7-17) 07/23/20 04:00 Creatinine 0.4 mg/dL (0.6-1.2) L 07/23/20 04:00 Estimated GFR > 60 ml/min 07/23/20 04:00 BUN/Creatinine Ratio 35 % 07/23/20 04:00 Glucose 112 mg/dL (65-100) H 07/23/20 04:00 POC Glucose 118 mg/dL (70-105) H 07/23/20 11:50 Lactic Acid 1.90 mmol/L (0.7-2.0) 07/09/20 Unknown Calcium 8.2 mg/dL (8.4-10.2) L 07/23/20 04:00 Phosphorus 3.20 mg/dL (2.5-4.5) 07/08/20 16:13 Magnesium 2.20 mg/dL (1.7-2.3) 07/08/20 16:13 Ferritin 219.8 ng/mL (10.0-200.0) H 07/13/20 07:20 Total Bilirubin 0.20 mg/dL (0.1-1.2) 07/13/20 07:20 AST 14 units/L (5-40) 07/13/20 07:20 ALT 13 units/L (7-56) 07/13/20 07:20 Alkaline Phosphatase 53 units/L (35-129) 07/13/20 07:20 Lactate Dehydrogenase 531 units/L (91-180) H 07/15/20 09:00 C-Reactive Protein 1.80 mg/dL (0.00-1.30) H 07/13/20 07:20 Total Protein 5.8 g/dL (6.3-8.2) L 07/13/20 07:20 Albumin 3.2 g/dL (3.9-5) L 07/13/20 07:20 Albumin/Globulin Ratio 1.2 % 07/13/20 07:20 Triglycerides 130 mg/dL (2-149) 07/23/20 04:42 Procalcitonin < 0.05 ng/mL (<0.15) 07/10/20 12:10 Arterial Blood Glucose 217 mg/dL (65-95) H 07/22/20 03:26 Arterial Blood Ionized Calcium 4.5 mg/dL (4.6-5.3) L 07/22/20 03:26 Urine Color Yellow (Yellow) 07/11/20 09:30 Urine Turbidity Clear (Clear) 07/11/20 09:30 Urine pH 5.0 (5.0-7.0) 07/11/20 09:30 Ur Specific [place] 1.028 (1.003-1.030) 07/11/20 09:30 Urine Protein <15 mg/dl mg/dL (Negative) 07/11/20 09:30 Urine Glucose (UA) Neg mg/dL (Negative) 07/11/20 09:30 Urine Ketones Neg mg/dL (Negative) 07/11/20 09:30 Urine Blood Neg (Negative) 07/11/20 09:30 Urine Nitrite Neg (Negative) 07/11/20 09:30 Urine Bilirubin Neg (Negative) 07/11/20 09:30 Urine Urobilinogen 2.0 mg/dL (<2.0) 07/11/20 09:30 Ur Leukocyte Esterase Neg (Negative) 07/11/20 09:30 Urine WBC (Auto) 1.0 /HPF (0.0-6.0) 07/11/20 09:30 Urine RBC (Auto) 1.0 /HPF (0.0-6.0) 07/11/20 09:30 U Epithel Cells (Auto) 1.0 /HPF (0-13.0) 07/11/20 09:30 Urine Mucus Few /HPF 07/11/20 09:30 Coronavirus (PCR) Positive (Negative) A 07/23/20 Unknown SARS-CoV-2 IgG Ab Reactive (NonReactive) A 07/15/20 14:30 Blood Type O POSITIVE 07/09/20 15:30 Antibody Screen Negative 07/09/20 15:30 - Diagnostic Impressions Diagnostic Impressions: Echocardiogram 07/19/20 13:13 Transthoracic Echocardiogram Indication: CHF BP: 106/58 Conclusions *The left ventricular systolic function is within normal limits. There are no wall motion abnormalities observed. *The estimated ejection fraction is 60-65%. *Normal left ventricular diastolic filling is observed. Findings Procedure Info: The study quality is fair. Left Ventricle: The left ventricular chamber size, wall thickness and systolic function are within normal limits. There are no wall motion abnormalities observed. Ejection fraction is normal. The estimated ejection fraction is 60-65%. Normal left ventricular diastolic filling is observed. Left Atrium: The left atrium is normal in size with no visual thrombus identified. Right Ventricle: The right ventricular chamber size and systolic function are within normal limits. Right Atrium: The right atrium appears normal. Aortic Valve: The aortic valve is trileaflet. The leaflets are thin with normal excursion. There is no aortic stenosis or regurgitation present. Mitral Valve: The mitral valve leaflets are mildly thickened. There is trace of mitral regurgitation. There is no evidence of mitral stenosis. Tricuspid Valve: The tricuspid valve leaflets are normal. There is trace tricuspid regurgitation. The right ventricular systolic pressure is calculated at 14 mmHg. There is no tricuspid stenosis. Pulmonic Valve: The pulmonic valve appears normal. There is mild pulmonic regurgitation. There is no pulmonic stenosis. Pericardium: The pericardium appears normal. Aorta: The aorta appears normal. Pulmonary Artery: The main pulmonary artery appears normal. Venous: The inferior vena cava appears normal in size. There is a greater than 50% respiratory change in the inferior vena cava dimension. Measurements Chambers 2D Name Value Normal Range IVSd (2D) 1.08 cm (0.6 - 1.1) LVPWd (2D) 0.91 cm (0.6 - 1.1) LVIDd (2D) 4.61 cm (3.7 - 5.6) LVIDs (2D) 3.12 cm (2 - 3.8) LV FS (2D) 32.38 % - EF Teichholz (2D) 60.72 % - Ao root diameter (2D) 3.01 cm (2 - 3.7) Volumes/Mass Name Value Normal Range LA ESV SP 4CH (A/L) 57.18 ml - LA ESV SP 2CH (A/L) 62.63 ml - LA ESV BP (A/L) 60.68 ml - LA ESV BP (A/L) index 28.22 ml/m2 - LA ESV SP 4CH (MOD) 51.17 ml - LA ESV SP 2CH (MOD) 57.8 ml - LA ESV BP (MOD) 54.73 ml - LA ESV BP (MOD) index 25.45 ml/m2 - LV EDV SP 4CH (MOD) 115.34 ml - LV ESV SP 4CH (MOD) 43.26 ml - EF SP 4CH (MOD) 62.5 % - LV EDV SP 2CH (MOD) 43.71 ml - LV ESV SP 2CH (MOD) 17.14 ml - EF SP 2CH (MOD) 60.79 % - LV EDV BP 73.15 ml - LV ESV BP 27.92 ml - BP EF (MOD) 61.83 % - Diastolic/Systolic Function Name Value Normal Range MV E-wave Vmax 0.88 m/sec - MV deceleration time 157.66 msec - MV A-wave Vmax 0.91 m/sec - MV E:A ratio 0.96 ratio - Aortic Valve Name Value Normal Range AV Vmax 1.54 m/sec - AV VTI 31.46 cm - AV peak gradient 9.51 mmHg - AV mean gradient 5.1 mmHg - LVOT diameter 1.95 cm - LVOT Vmax 1.21 m/sec - LVOT VTI 27.59 cm - LVOT peak gradient 5.83 mmHg - LVOT mean gradient 3.3 mmHg - SV LVOT 82.76 ml - SMITH (continuity Vmax) 2.35 cm2 - SMITH (continuity VTI) 2.63 cm2 - Ascending Ao 2.94 cm - Tricuspid Valve Name Value Normal Range TV E-wave Vmax 0.49 m/sec - TR Vmax 1.72 m/sec - TR peak gradient 11.86 mmHg - RAP 3 mmHg - RVSP 14 mmHg - IVC diameter 1.91 cm (1.2 - 2.3) Pulmonic Valve/Qp:Qs Name Value Normal Range PV Vmax 0.94 m/sec - PV peak gradient 3.54 mmHg - [place] end-diastolic Vmax 0.54 m/sec - RVOT Vmax 0.68 m/sec - RVOT VTI 13.18 cm - RVOT peak gradient 1.82 mmHg - PV acceleration time 117.98 msec - Te[place]ada/IV: Voiding Method External Female Catheter IV Catheter Type [Left Upper PICC Line arm] IV Catheter Type [Right INT / Saline Lock Forearm] IV Catheter Type [Left Wrist] INT / Saline Lock IV Catheter Type [Left Hand] Peripheral IV Active Medications - Current Medications Current Medications: Generic Name Dose Route Start Last Admin Trade Name Freq PRN Reason Stop Dose Admin Acetaminophen 650 mg 07/06/20 13:39 07/21/20 15:07 Tylenol PO 650 mg Q4H PRN Administration Pain MILD(1-3)/Fever >100.5/WILLETT Albuterol 2.5 mg 07/15/20 14:00 07/23/20 08:38 Proventil IH 2.5 mg TIDRT ROMMEL Administration Alprazolam 0.5 mg 07/07/20 12:28 07/07/20 22:27 Xanax PO 0.5 mg Q8H PRN Administration Anxiety Lipase/Protease/Amylase 1 each 07/08/20 14:50 Pancreazchristina Price 10,500 Unit FEEDTUBE PRN PRN For Clogged Feeding Tube Arformoterol Tartrate 15 mcg 07/07/20 09:15 07/23/20 08:37 Brovana Nebu IH 15 mcg Q12HRT ROMMEL Administration Ascorbic Acid 500 mg 07/08/20 22:00 07/23/20 09:13 Vitamin C PO 500 mg BID ROMMEL Administration Aspirin 81 mg 07/06/20 14:00 07/23/20 09:13 Baby Aspirin PO 81 mg QDAY ROMMEL Administration Budesonide 0.5 mg 07/07/20 09:15 07/23/20 08:38 Pulmicort IH 0.5 mg Q12HRT ROMMEL Administration Dextrose 50 ml 07/12/20 16:58 D50w (25gm) Syringe IV Q30MIN PRN Hypoglycemia Protocol Docusate Sodium 100 mg 07/16/20 22:00 07/23/20 09:13 Colace PO 100 mg BID ROMMEL Administration Enoxaparin Sodium 30 mg 07/06/20 15:00 07/23/20 09:14 Enoxaparin SUB-Q 30 mg BID ROMMEL Administration Protocol Fentanyl 50 mcg 07/08/20 13:16 07/11/20 09:41 Sublimaze IV 50 mcg Q10MIN PRN Administration ANALGESIA Hydrophilic Ointment 1 applic 07/08/20 13:16 07/22/20 23:01 Vaseline Lip Therapy TP 1 applic Q2HR PRN Administration Dry Lips Hydroxychloroquine Sulfate 200 mg 07/07/20 10:00 07/23/20 09:13 Plaquenil PO 200 mg QDAY ROMMEL Administration Fentanyl Citrate 2,000 mcg in 100 mls @ 4.825 mls/hr 07/08/20 14:00 07/23/20 09:08 Fentanyl Drip Premix IV 2 mcg/kg/hr TITR ROMMEL 9.65 mls/hr Administration Protocol 1 MCG/KG/HR Midazolam HCl 100 mg/ Sodium 100 mls @ 2 mls/hr 07/08/20 15:00 07/23/20 08:41 Chloride IV 4 mg/hr TITR ROMMEL 4 mls/hr Administration Protocol 2 MG/HR Sodium Chloride 500 mls @ 10 mls/hr 07/15/20 15:00 Nacl 0.9% 500 Ml IV DIRECT ROMMEL Propofol 1,000 mg in 100 mls @ 3.3 mls/hr 07/19/20 13:00 07/23/20 08:41 Diprivan 10 Mg/Ml IV 15 mcg/kg/min TITR ROMMEL 9.9 mls/hr Administration Protocol 5 MCG/KG/MIN Insulin Glargine 5 units 07/12/20 17:00 07/22/20 17:32 Lantus SUB-Q 5 units Q24H ROMMEL Administration Insulin Human Regular 0 unit 07/12/20 17:00 07/23/20 11:50 Humulin R SUB-Q Not Given Q6H [facility] Protocol Lansoprazole 30 mg 07/10/20 10:00 07/23/20 09:45 Prevacid Solutab FEEDTUBE 30 mg QDAY ROMMEL Administration Methylprednisolone Sodium Succinate 40 mg 07/22/20 14:00 07/23/20 14:10 Solu-Medrol IV 40 mg Q8H ROMMEL Administration Midazolam HCl 2 mg 07/08/20 14:33 07/18/20 23:46 Versed IV 2 mg Q10MIN PRN Administration Sedation Multi-Ingred Cream/Lotion/Oil/Oint 1 applic 07/08/20 13:16 Artificial Tears Ophth Oint OU Q4HR PRN Dry Eye(s) Ondansetron HCl 4 mg 07/06/20 13:39 07/08/20 10:44 Zofran IV 4 mg Q8H PRN Administration Nausea And Vomiting Polyethylene Glycol 17 gm 07/16/20 22:00 07/23/20 07:29 Miralax 3350 PO Not Given QHS ROMMEL Pseudoephedrine/Acetam/Chlorphenir 10 ml 07/07/20 01:17 07/08/20 08:30 Robitussin Ac PO 10 ml Q4H PRN Administration Cough Quetiapine Fumarate 300 mg 07/21/20 22:00 07/23/20 09:13 Seroquel PO 300 mg BID ROMMEL Administration Simple Syrup 15 ml 07/08/20 14:50 Simple Syrup FEEDTUBE PRN PRN Hypoglycemia Simple Syrup 30 ml 07/08/20 14:50 Simple Syrup FEEDTUBE PRN PRN Hypoglycemia Sodium Bicarbonate 325 mg 07/08/20 14:50 Sodium Bicarbonate FEEDTUBE PRN PRN For Clogged Feeding Tube Sodium Chloride 10 ml 07/06/20 14:00 07/23/20 09:14 Sodium Chloride Flush Syringe 10 Ml IV 10 ml BID ROMMEL Administration Sodium Chloride 10 ml 07/06/20 13:39 Sodium Chloride Flush Syringe 10 Ml IV PRN PRN LINE FLUSH Venlafaxine HCl 37.5 mg 07/07/20 10:00 07/23/20 09:13 Effexor PO 37.5 mg DAILY ROMMEL Administration Zinc Sulfate 220 mg 07/08/20 22:00 07/23/20 09:45 Zinc Sulfate PO 220 mg BID ROMMEL Administration Nutrition/Malnutrition Assess - Dietary Evaluation Nutrition/Malnutrition Findings: Nutrition Notes Start: 07/08/20 14:02 Freq: Status: Active Protocol: Document 07/18/20 14:20 AL (Rec: 07/18/20 14:24 AL [id number]) Co-Sign 07/18/20 14:20 LP Nutrition Notes Initial or Follow up Reassessment Current Diagnosis Hypertension,Heart Failure Other Pertinent Diagnosis Acute respiratory failure, COVID(+), GERD, Lupus Current Diet Vital AF 1.2 at 55 mL/hr (goal rate) Labs/Tests BUN 25 Cr 0.4 POC BG 177 Pertinent Medications Fentanyl Solu-medrol Vitamin C Humulin Miralax Colace Height 5 ft 5 in Weight 110 kg [place] Body Weight (kg) 56.81 BMI 40.3 Weight Status Obese Subjective/Other Information F/U for TF tolerance. Per RN, patient is tolerating TF well. Patient's last BM was 07/13, currently on bowel regimen. Percent of energy/protein needs met: 96%/87% Burn Absent Trauma Absent GI Symptoms None Current % PO Negligible Minimum of two criteria No physical signs of malnutrition #1 Nutrition Diagnosis Inadequate oral intake Diagnosis Progress(for reassessment Continues documentation) Is patient on ventilator? Yes Is Patient Ambulatory and/or Out of Bed No REE-([facility]-confined to bed) 2080.344 Kcal/Kg value to use for calculation 15 Approximate Energy Requirements Using 1650 kcal/Kg Calculation Used for Recommendations Kcal/kg Additional Notes Pro: greater than 114 g (>2 g/ kg IBW) Fluid: 1ml/kcal or per MD Nutrition Intervention Change Diet Order: Continue TF Nutrition Support: Vital AF at 55 ml/hr (goal rate) Flush 75 ml q4h Kcal 1,584 Protein (gm) 99 Fluid (mL) 1,070 Goal #1 Meet at least 80% of protein and energy needs via TF Anticipated Discharge Needs: Cannot determine at this time Follow-Up By: 07/24/20 Additional Comments F/U for TF tolerance, BM
[2020-07-23] MEDS: INSULIN GLARGINE 100 UNITS/ML SUB-Q SCH (18:36)
[2020-07-24] MEDS: POLYETHYLENE GLYCOL 3350 17 GM POWDER PO SCH ×2 (00:33→22:11)
[2020-07-24] MEDS: fentaNYL DRIP Premix 2,000 MCG/100 ML BAG IV SCH ×2 (03:58→15:20)
[2020-07-24 04:46] LABS: ABG Base Excess 8.5 mmol/L (-2.0-3.0); ABG HCO3 34.3 mmol/L (20.0-26.0); ABG Methemoglobin 0.5 % (0.0-1.5); ABG PCO2 53.9 mm Hg; ABG PH 7.422 pH Units (7.350-7.450); ABG PO2 54.4 mm Hg (80.0-90.0)
[2020-07-24] MEDS: INSULIN REGULAR, HUMAN 100 UNIT/ML 3ML VIAL SUB-Q SCH ×5 (06:47→23:54)
[2020-07-24] MEDS: methylPREDNISolone Sod Succinate 40 MG/1 ML INJ IV SCH ×3 (07:14→22:14)
--- NOTE | 2020-07-24 07:57 | Progress Note ---
Assessment and Plan 50-year-old female with CHF, asthma, hypertension, lupus was admitted to the hospital with complaints of fever, shortness of breath. Of note, she was seen last week due to an asthma exacerbation when her SARS-CoV-2 PCR and IgG were both negative. She was treated with steroids. She reportedly then went to [place] and tested positive for COVID-19 and was discharged from the hospital on 07/05/2020 readmitted here with: Acute hypoxemic respiratory failure, now on MVS Bilateral pneumonia, left greater than right lungs. COVID-19 infection-SEVERE/CRITICAL . History of congestive heart failure. History of lupus erythematosus. Leukocytosis. Tobacco use disorder. Acute asthma exacerbation. History of hypertension. Obesity Remains critically ill, on going intermittent desaturations. Will monitor closely, no dys-synchrony to suggest need for paralytics. -Continue Seroquel to 300mg BID while monitoring for arrhythmias and QTc- no prologation of QTc - continue airborne and contact isolation per facility protocol -Continue to monitor off antibiotics - continue systemic steroids for Asthma / severe COVID infection- start slow taper. Patient is at high risk fro critical illness and steroid induced myopathy - continue Daily assessment for readiness to wean. Ventilatory demands are too high at this time - VAP bundle addressed, aspiration precautions, HOB >40 - continue lung protective strategies - accuchecks with glycemic control per SSI (While critically ill target blood glucose of 140-180 mg/dL; avoid hypoglycemia) - sedation for target RASS -1 to -2 - avoid nephrotoxins, renally dose all medications - prn analgesia per CPOT score - Maintenance of sleep-wake cycle, avoid delirium - continue enteral nutritional support at goal rate as tolerated - G.I. & VTE prophylaxis( Famotidine and Enoxaparin) - PT/OT/ROM exercises - continue mobility protocols for pressure ulcer prophylaxis - Monitor hemodynamics closely - continue other care per attending / other consultants - discharge planning ongoing concurrently COVID SPECIFIC INTERVENTIONS -On steroids -Prophylactic anticoagulation based on d-dimer -s/p Remdesivir -s/p Convalescent plasma, was IgG negative -Zinc & Vit C supplementation -Contact and airborne isolation per facility protocols CONDITION: CRITICAL PROGNOSIS: GUARDED CODE STATUS: FULL CODE The high probability of a clinically significant, sudden or life-threatening deterioration of the [respiratory, cardiovascular & neurologic] system(s) required my full and direct attention, intervention and personal management. The aggregate critical care time was [35] minutes without overlap. Time includes spent on; [x] Data Review and interpretation [x] Patient assessment and monitoring of vital signs [x] Documentation [x] Medication orders and management Subjective Date of service: 07/24/20 Principal diagnosis: Ac hypoxemic resp failure; PNA; COVID-19 infxn; SLE; Asthma exacerbation Interval history: Patient is seen today for: Acute hypoxemic respiratory failure; Bilateral pneumonia; COVID-19 infection; H/O CHF; SLE; Acute asthma exacerbation. HTN; Obesity Seen and examined at bedside; 24hour events reviewed; nursing and respiratory care staff consulted; no adverse overnight events reported to me; resting peacefully in bed; remains on MVS; Currently on AC-VC 16/450/+14/100%, on going desaturations. Low grade fever today T 100.1 Midazolam, Fentanyl and Propofol. She is sedated No dys-synchrony at this time, mean airway pressure 30 No N/V/F/C Objective Vital Signs - 12hr 07/23/20 07/23/20 07/23/20 20:00 20:01 20:30 Temperature 98.2 F Pulse Rate 73 82 71 Pulse Rate [ 73 From Monitor] Respiratory 18 23 19 Rate Blood Pressure 122/62 111/66 O2 Sat by Pulse 94 90 91 Oximetry 07/23/20 07/23/20 07/23/20 21:00 21:09 21:30 Temperature Pulse Rate 80 80 76 Pulse Rate [ From Monitor] Respiratory 22 22 19 Rate Blood Pressure 125/80 125/80 125/71 O2 Sat by Pulse 94 92 95 Oximetry 07/23/20 07/23/20 07/23/20 22:00 22:30 23:00 Temperature Pulse Rate 82 71 86 Pulse Rate [ From Monitor] Respiratory 21 19 24 Rate Blood Pressure 111/76 106/70 115/70 O2 Sat by Pulse 93 93 92 Oximetry 07/23/20 07/23/20 07/24/20 23:30 23:47 00:00 Temperature 98.8 F Pulse Rate 84 84 82 Pulse Rate [ 79 From Monitor] Respiratory 19 18 Rate Blood Pressure 95/57 93/57 92/57 O2 Sat by Pulse 91 92 91 Oximetry 07/24/20 07/24/20 07/24/20 00:30 01:00 01:30 Temperature Pulse Rate 80 79 78 Pulse Rate [ From Monitor] Respiratory 16 16 16 Rate Blood Pressure 106/52 97/52 90/54 O2 Sat by Pulse 93 92 92 Oximetry 07/24/20 07/24/20 07/24/20 02:00 02:30 03:00 Temperature Pulse Rate 76 74 74 Pulse Rate [ From Monitor] Respiratory 16 16 13 Rate Blood Pressure 102/47 103/54 93/53 O2 Sat by Pulse 93 92 92 Oximetry 07/24/20 07/24/20 07/24/20 03:30 04:00 04:08 Temperature 98.4 F Pulse Rate 72 72 95 H Pulse Rate [ 98 H From Monitor] Respiratory 15 18 Rate Blood Pressure 89/48 105/62 105/62 O2 Sat by Pulse 92 96 96 Oximetry 07/24/20 07/24/20 07/24/20 04:30 05:00 05:30 Temperature Pulse Rate 81 73 81 Pulse Rate [ From Monitor] Respiratory 18 18 21 Rate Blood Pressure 110/57 109/50 100/63 O2 Sat by Pulse 95 92 94 Oximetry 07/24/20 07/24/20 06:00 06:30 Temperature Pulse Rate 78 89 Pulse Rate [ From Monitor] Respiratory 20 26 H Rate Blood Pressure 107/53 112/64 O2 Sat by Pulse 93 93 Oximetry Constitutional: no acute distress, asleep, other (middle aged obese female with mildly increased respiratory effort at rest on MVS) Eyes: non-icteric ENT: oropharynx moist, other (ETT 7.5cm, 22cm YANET) Neck: supple, no lymphadenopathy, no JVD Effort: mildly labored Ascultation: Bilateral: diminished breath sounds, rhonchi (scant ), other (+ mild accesory muscle use) Percussion: Bilateral: not dull Cardiovascular: regular rate and rhythm, other (S1,S2) Gastrointestinal: normoactive bowel sounds, soft, non-tender, non-distended Integumentary: normal Extremities: no cyanosis, no edema, pulses normal, no ischemia or petechiae Neurologic: normal mental status, non-focal exam (moves extremities), pupils equal and round Psychiatric: other (sedated) CBC and BMP: 07/26/20 14:23 07/23/20 04:00 ABG, PT/INR, D-dimer: ABG ABG pH 7.422 pH Units (7.350-7.450) 07/24/20 04:11 POC ABG pCO2 46.1 mmHg (32.0-48.0) 07/22/20 03:26 ABG pCO2 53.9 mm Hg 07/24/20 04:11 POC ABG pO2 54.2 mmHg (83-108) L 07/22/20 03:26 ABG pO2 54.4 mm Hg (80.0-90.0) L 07/24/20 04:11 POC ABG HCO3 30.0 07/22/20 03:26 ABG O2 Saturation 89.0 % (95.0-99.0) L 07/24/20 04:11 PT/INR, D-dimer D-Dimer 826.36 ng/mlDDU (0-234) H 07/13/20 07:20 Abnormal lab findings: Abnormal Labs 07/06/20 07/06/20 07/07/20 05:24 17:16 04:50 WBC 13.5 H 12.7 H RBC Hgb Lymph % (Auto) Lymph # (Auto) Seg Neuts % (Manual) 86.0 H 87.0 H Lymphocytes % (Manual) 6.0 L 9.0 L Seg Neutrophils # Seg Neutrophils # Man 11.6 H 11.0 H Lymphocytes # (Manual) 0.8 L 1.1 L D-Dimer ABG pH POC ABG pCO2 POC ABG pO2 ABG pO2 ABG HCO3 ABG O2 Saturation ABG Base Excess ABG Hemoglobin ABG Oxyhemoglobin ABG Sodium ABG Potassium ABG Chloride ABG Glucose Oxyhemoglobin Chloride Carbon Dioxide BUN Creatinine Glucose POC Glucose Calcium Ferritin Lactate Dehydrogenase 242 H C-Reactive Protein 7.30 H Total Protein Albumin Arterial Blood Glucose Arterial Blood Ionized Calcium Coronavirus (PCR) SARS-CoV-2 IgG Ab 07/07/20 07/07/20 07/07/20 04:50 14:22 14:22 WBC RBC Hgb Lymph % (Auto) Lymph # (Auto) Seg Neuts % (Manual) Lymphocytes % (Manual) Seg Neutrophils # Seg Neutrophils # Man Lymphocytes # (Manual) D-Dimer ABG pH POC ABG pCO2 POC ABG pO2 ABG pO2 ABG HCO3 ABG O2 Saturation ABG Base Excess ABG Hemoglobin ABG Oxyhemoglobin ABG Sodium ABG Potassium ABG Chloride ABG Glucose Oxyhemoglobin Chloride Carbon Dioxide BUN 18 H Creatinine Glucose 138 H POC Glucose Calcium Ferritin 228.2 H Lactate Dehydrogenase 277 H C-Reactive Protein Total Protein 5.9 L Albumin 3.4 L Arterial Blood Glucose Arterial Blood Ionized Calcium Coronavirus (PCR) SARS-CoV-2 IgG Ab 07/08/20 07/08/20 07/08/20 11:18 12:57 16:13 WBC RBC Hgb Lymph % (Auto) Lymph # (Auto) Seg Neuts % (Manual) Lymphocytes % (Manual) Seg Neutrophils # Seg Neutrophils # Man Lymphocytes # (Manual) D-Dimer ABG pH POC ABG pCO2 POC ABG pO2 ABG pO2 39.3 L* ABG HCO3 ABG O2 Saturation 76.8 L ABG Base Excess ABG Hemoglobin ABG Oxyhemoglobin ABG Sodium ABG Potassium ABG Chloride ABG Glucose Oxyhemoglobin 75.3 L Chloride Carbon Dioxide 20 L D BUN Creatinine Glucose 135 H POC Glucose 106 H Calcium 8.0 L Ferritin Lactate Dehydrogenase C-Reactive Protein Total Protein Albumin Arterial Blood Glucose Arterial Blood Ionized Calcium Coronavirus (PCR) SARS-CoV-2 IgG Ab 07/08/20 07/08/20 07/09/20 17:04 18:45 04:00 WBC 15.6 H RBC Hgb Lymph % (Auto) 4.7 L Lymph # (Auto) 0.7 L Seg Neuts % (Manual) Lymphocytes % (Manual) Seg Neutrophils # 14.2 H Seg Neutrophils # Man Lymphocytes # (Manual) D-Dimer ABG pH POC ABG pCO2 POC ABG pO2 ABG pO2 181.8 H ABG HCO3 ABG O2 Saturation 99.1 H ABG Base Excess ABG Hemoglobin 11.4 L ABG Oxyhemoglobin ABG Sodium ABG Potassium ABG Chloride ABG Glucose Oxyhemoglobin Chloride Carbon Dioxide BUN Creatinine Glucose POC Glucose 117 H Calcium Ferritin Lactate Dehydrogenase C-Reactive Protein Total Protein Albumin Arterial Blood Glucose Arterial Blood Ionized Calcium Coronavirus (PCR) SARS-CoV-2 IgG Ab 07/09/20 07/09/20 07/09/20 04:00 04:00 04:49 WBC RBC Hgb Lymph % (Auto) Lymph # (Auto) Seg Neuts % (Manual) Lymphocytes % (Manual) Seg Neutrophils # Seg Neutrophils # Man Lymphocytes # (Manual) D-Dimer ABG pH POC ABG pCO2 POC ABG pO2 ABG pO2 ABG HCO3 26.2 H ABG O2 Saturation ABG Base Excess ABG Hemoglobin 11.2 L ABG Oxyhemoglobin ABG Sodium ABG Potassium ABG Chloride ABG Glucose Oxyhemoglobin 94.9 L Chloride Carbon Dioxide BUN Creatinine Glucose 158 H POC Glucose Calcium 8.2 L Ferritin 320.0 H Lactate Dehydrogenase 391 H C-Reactive Protein 9.50 H Total Protein 5.9 L Albumin 3.2 L Arterial Blood Glucose Arterial Blood Ionized Calcium Coronavirus (PCR) SARS-CoV-2 IgG Ab 07/09/20 07/09/20 07/09/20 11:56 17:49 23:39 WBC RBC Hgb Lymph % (Auto) Lymph # (Auto) Seg Neuts % (Manual) Lymphocytes % (Manual) Seg Neutrophils # Seg Neutrophils # Man Lymphocytes # (Manual) D-Dimer ABG pH POC ABG pCO2 POC ABG pO2 ABG pO2 ABG HCO3 ABG O2 Saturation ABG Base Excess ABG Hemoglobin ABG Oxyhemoglobin ABG Sodium ABG Potassium ABG Chloride ABG Glucose Oxyhemoglobin Chloride Carbon Dioxide BUN Creatinine Glucose POC Glucose 156 H 119 H 145 H Calcium Ferritin Lactate Dehydrogenase C-Reactive Protein Total Protein Albumin Arterial Blood Glucose Arterial Blood Ionized Calcium Coronavirus (PCR) SARS-CoV-2 IgG Ab 07/10/20 07/10/20 07/10/20 03:32 05:26 11:22 WBC RBC Hgb Lymph % (Auto) Lymph # (Auto) Seg Neuts % (Manual) Lymphocytes % (Manual) Seg Neutrophils # Seg Neutrophils # Man Lymphocytes # (Manual) D-Dimer ABG pH POC ABG pCO2 POC ABG pO2 ABG pO2 75.7 L ABG HCO3 27.5 H ABG O2 Saturation ABG Base Excess ABG Hemoglobin 9.3 L ABG Oxyhemoglobin ABG Sodium ABG Potassium ABG Chloride ABG Glucose Oxyhemoglobin 94.7 L Chloride Carbon Dioxide BUN Creatinine Glucose POC Glucose 156 H 148 H Calcium Ferritin Lactate Dehydrogenase C-Reactive Protein Total Protein Albumin Arterial Blood Glucose Arterial Blood Ionized Calcium Coronavirus (PCR) SARS-CoV-2 IgG Ab 07/10/20 07/10/20 07/10/20 12:10 12:10 18:20 WBC 14.1 H RBC 3.33 L Hgb 9.9 L Lymph % (Auto) Lymph # (Auto) Seg Neuts % (Manual) 89.0 H Lymphocytes % (Manual) 8.0 L Seg Neutrophils # Seg Neutrophils # Man 12.5 H Lymphocytes # (Manual) 1.1 L D-Dimer ABG pH POC ABG pCO2 POC ABG pO2 ABG pO2 ABG HCO3 ABG O2 Saturation ABG Base Excess ABG Hemoglobin ABG Oxyhemoglobin ABG Sodium ABG Potassium ABG Chloride ABG Glucose Oxyhemoglobin Chloride Carbon Dioxide BUN 21 H Creatinine Glucose 154 H POC Glucose 181 H Calcium 8.0 L Ferritin Lactate Dehydrogenase C-Reactive Protein Total Protein 5.4 L Albumin 3.0 L Arterial Blood Glucose Arterial Blood Ionized Calcium Coronavirus (PCR) SARS-CoV-2 IgG Ab 07/10/20 07/11/20 07/11/20 23:51 04:05 05:43 WBC RBC Hgb Lymph % (Auto) Lymph # (Auto) Seg Neuts % (Manual) Lymphocytes % (Manual) Seg Neutrophils # Seg Neutrophils # Man Lymphocytes # (Manual) D-Dimer ABG pH 7.348 L POC ABG pCO2 POC ABG pO2 ABG pO2 93.6 H ABG HCO3 28.5 H ABG O2 Saturation ABG Base Excess ABG Hemoglobin 10.1 L ABG Oxyhemoglobin ABG Sodium ABG Potassium ABG Chloride ABG Glucose Oxyhemoglobin Chloride Carbon Dioxide BUN Creatinine Glucose POC Glucose 116 H 132 H Calcium Ferritin Lactate Dehydrogenase C-Reactive Protein Total Protein Albumin Arterial Blood Glucose Arterial Blood Ionized Calcium Coronavirus (PCR) SARS-CoV-2 IgG Ab 07/11/20 07/11/20 07/11/20 09:11 09:11 09:11 WBC 15.8 H RBC 3.44 L Hgb Lymph % (Auto) Lymph # (Auto) Seg Neuts % (Manual) 92.0 H Lymphocytes % (Manual) 4.0 L Seg Neutrophils # Seg Neutrophils # Man 14.5 H Lymphocytes # (Manual) 0.6 L D-Dimer 360.61 H ABG pH POC ABG pCO2 POC ABG pO2 ABG pO2 ABG HCO3 ABG O2 Saturation ABG Base Excess ABG Hemoglobin ABG Oxyhemoglobin ABG Sodium ABG Potassium ABG Chloride ABG Glucose Oxyhemoglobin Chloride 107.1 H Carbon Dioxide BUN 22 H Creatinine Glucose 149 H POC Glucose Calcium 7.8 L Ferritin Lactate Dehydrogenase 483 H C-Reactive Protein 2.30 H Total Protein 4.9 L Albumin 3.0 L Arterial Blood Glucose Arterial Blood Ionized Calcium Coronavirus (PCR) SARS-CoV-2 IgG Ab 07/11/20 07/11/20 07/11/20 09:11 12:16 17:55 WBC RBC Hgb Lymph % (Auto) Lymph # (Auto) Seg Neuts % (Manual) Lymphocytes % (Manual) Seg Neutrophils # Seg Neutrophils # Man Lymphocytes # (Manual) D-Dimer ABG pH POC ABG pCO2 POC ABG pO2 ABG pO2 ABG HCO3 ABG O2 Saturation ABG Base Excess ABG Hemoglobin ABG Oxyhemoglobin ABG Sodium ABG Potassium ABG Chloride ABG Glucose Oxyhemoglobin Chloride Carbon Dioxide BUN Creatinine Glucose POC Glucose 157 H 166 H Calcium Ferritin 371.2 H Lactate Dehydrogenase C-Reactive Protein Total Protein Albumin Arterial Blood Glucose Arterial Blood Ionized Calcium Coronavirus (PCR) SARS-CoV-2 IgG Ab 07/12/20 07/12/20 07/12/20 00:32 04:00 04:00 WBC RBC 3.52 L Hgb Lymph % (Auto) Lymph # (Auto) Seg Neuts % (Manual) 90.0 H Lymphocytes % (Manual) 4.0 L Seg Neutrophils # Seg Neutrophils # Man 9.5 H Lymphocytes # (Manual) 0.4 L D-Dimer ABG pH POC ABG pCO2 POC ABG pO2 ABG pO2 ABG HCO3 ABG O2 Saturation ABG Base Excess ABG Hemoglobin ABG Oxyhemoglobin ABG Sodium ABG Potassium ABG Chloride ABG Glucose Oxyhemoglobin Chloride Carbon Dioxide 31 H BUN 21 H Creatinine Glucose 175 H POC Glucose 178 H Calcium 8.0 L Ferritin Lactate Dehydrogenase C-Reactive Protein Total Protein 5.4 L Albumin 3.0 L Arterial Blood Glucose Arterial Blood Ionized Calcium Coronavirus (PCR) SARS-CoV-2 IgG Ab 07/12/20 07/12/20 07/12/20 04:01 05:47 12:09 WBC RBC Hgb Lymph % (Auto) Lymph # (Auto) Seg Neuts % (Manual) Lymphocytes % (Manual) Seg Neutrophils # Seg Neutrophils # Man Lymphocytes # (Manual) D-Dimer ABG pH 7.456 H POC ABG pCO2 POC ABG pO2 ABG pO2 ABG HCO3 ABG O2 Saturation ABG Base Excess ABG Hemoglobin 10.6 L ABG Oxyhemoglobin ABG Sodium ABG Potassium ABG Chloride ABG Glucose 177 H Oxyhemoglobin Chloride Carbon Dioxide BUN Creatinine Glucose POC Glucose 185 H 227 H Calcium Ferritin Lactate Dehydrogenase C-Reactive Protein Total Protein Albumin Arterial Blood Glucose 177 H Arterial Blood Ionized Calcium 4.5 L Coronavirus (PCR) SARS-CoV-2 IgG Ab 07/12/20 07/12/20 07/13/20 17:34 23:57 05:06 WBC RBC Hgb Lymph % (Auto) Lymph # (Auto) Seg Neuts % (Manual) Lymphocytes % (Manual) Seg Neutrophils # Seg Neutrophils # Man Lymphocytes # (Manual) D-Dimer ABG pH POC ABG pCO2 POC ABG pO2 ABG pO2 ABG HCO3 ABG O2 Saturation ABG Base Excess ABG Hemoglobin ABG Oxyhemoglobin ABG Sodium ABG Potassium ABG Chloride ABG Glucose Oxyhemoglobin Chloride Carbon Dioxide BUN Creatinine Glucose POC Glucose 202 H 163 H 166 H Calcium Ferritin Lactate Dehydrogenase C-Reactive Protein Total Protein Albumin Arterial Blood Glucose Arterial Blood Ionized Calcium Coronavirus (PCR) SARS-CoV-2 IgG Ab 07/13/20 07/13/20 07/13/20 07:20 07:20 07:20 WBC 20.5 H RBC Hgb Lymph % (Auto) Lymph # (Auto) Seg Neuts % (Manual) 93.0 H Lymphocytes % (Manual) 3.0 L Seg Neutrophils # Seg Neutrophils # Man 19.1 H Lymphocytes # (Manual) 0.6 L D-Dimer 826.36 H ABG pH POC ABG pCO2 POC ABG pO2 ABG pO2 ABG HCO3 ABG O2 Saturation ABG Base Excess ABG Hemoglobin ABG Oxyhemoglobin ABG Sodium ABG Potassium ABG Chloride ABG Glucose Oxyhemoglobin Chloride Carbon Dioxide 31 H BUN 25 H Creatinine Glucose 163 H POC Glucose Calcium 8.1 L Ferritin Lactate Dehydrogenase 512 H C-Reactive Protein 1.80 H Total Protein 5.8 L Albumin 3.2 L Arterial Blood Glucose Arterial Blood Ionized Calcium Coronavirus (PCR) SARS-CoV-2 IgG Ab 07/13/20 07/13/20 07/13/20 07:20 11:37 17:20 WBC RBC Hgb Lymph % (Auto) Lymph # (Auto) Seg Neuts % (Manual) Lymphocytes % (Manual) Seg Neutrophils # Seg Neutrophils # Man Lymphocytes # (Manual) D-Dimer ABG pH POC ABG pCO2 POC ABG pO2 ABG pO2 ABG HCO3 ABG O2 Saturation ABG Base Excess ABG Hemoglobin ABG Oxyhemoglobin ABG Sodium ABG Potassium ABG Chloride ABG Glucose Oxyhemoglobin Chloride Carbon Dioxide BUN Creatinine Glucose POC Glucose 232 H 210 H Calcium Ferritin 219.8 H Lactate Dehydrogenase C-Reactive Protein Total Protein Albumin Arterial Blood Glucose Arterial Blood Ionized Calcium Coronavirus (PCR) SARS-CoV-2 IgG Ab 07/13/20 07/13/20 07/14/20 23:57 Unknown 05:22 WBC RBC Hgb Lymph % (Auto) Lymph # (Auto) Seg Neuts % (Manual) Lymphocytes % (Manual) Seg Neutrophils # Seg Neutrophils # Man Lymphocytes # (Manual) D-Dimer ABG pH 7.341 L POC ABG pCO2 POC ABG pO2 133.0 H ABG pO2 56.5 L ABG HCO3 29.7 H ABG O2 Saturation 89.3 L ABG Base Excess ABG Hemoglobin 11.0 L ABG Oxyhemoglobin ABG Sodium ABG Potassium ABG Chloride ABG Glucose 207 H Oxyhemoglobin 87.7 L Chloride Carbon Dioxide BUN Creatinine Glucose POC Glucose 190 H Calcium Ferritin Lactate Dehydrogenase C-Reactive Protein Total Protein Albumin Arterial Blood Glucose 207 H Arterial Blood Ionized Calcium 4.5 L Coronavirus (PCR) SARS-CoV-2 IgG Ab 07/14/20 07/14/20 07/14/20 05:54 11:16 17:50 WBC RBC Hgb Lymph % (Auto) Lymph # (Auto) Seg Neuts % (Manual) Lymphocytes % (Manual) Seg Neutrophils # Seg Neutrophils # Man Lymphocytes # (Manual) D-Dimer ABG pH POC ABG pCO2 POC ABG pO2 ABG pO2 ABG HCO3 ABG O2 Saturation ABG Base Excess ABG Hemoglobin ABG Oxyhemoglobin ABG Sodium ABG Potassium ABG Chloride ABG Glucose Oxyhemoglobin Chloride Carbon Dioxide BUN Creatinine Glucose POC Glucose 206 H 196 H 205 H Calcium Ferritin Lactate Dehydrogenase C-Reactive Protein Total Protein Albumin Arterial Blood Glucose Arterial Blood Ionized Calcium Coronavirus (PCR) SARS-CoV-2 IgG Ab 07/14/20 07/15/20 07/15/20 23:28 03:16 06:12 WBC RBC Hgb Lymph % (Auto) Lymph # (Auto) Seg Neuts % (Manual) Lymphocytes % (Manual) Seg Neutrophils # Seg Neutrophils # Man Lymphocytes # (Manual) D-Dimer ABG pH POC ABG pCO2 49.2 H POC ABG pO2 120.3 H ABG pO2 ABG HCO3 ABG O2 Saturation ABG Base Excess ABG Hemoglobin 9.5 L ABG Oxyhemoglobin ABG Sodium ABG Potassium ABG Chloride ABG Glucose 148 H Oxyhemoglobin Chloride Carbon Dioxide BUN Creatinine Glucose POC Glucose 160 H 178 H Calcium Ferritin Lactate Dehydrogenase C-Reactive Protein Total Protein Albumin Arterial Blood Glucose 148 H Arterial Blood Ionized Calcium Coronavirus (PCR) SARS-CoV-2 IgG Ab 07/15/20 07/15/20 07/15/20 09:00 12:32 14:30 WBC RBC Hgb Lymph % (Auto) Lymph # (Auto) Seg Neuts % (Manual) Lymphocytes % (Manual) Seg Neutrophils # Seg Neutrophils # Man Lymphocytes # (Manual) D-Dimer ABG pH POC ABG pCO2 POC ABG pO2 ABG pO2 ABG HCO3 ABG O2 Saturation ABG Base Excess ABG Hemoglobin ABG Oxyhemoglobin ABG Sodium ABG Potassium ABG Chloride ABG Glucose Oxyhemoglobin Chloride Carbon Dioxide BUN Creatinine Glucose POC Glucose 173 H Calcium Ferritin Lactate Dehydrogenase 531 H C-Reactive Protein Total Protein Albumin Arterial Blood Glucose Arterial Blood Ionized Calcium Coronavirus (PCR) SARS-CoV-2 IgG Ab Reactive A 07/15/20 07/15/20 07/16/20 18:24 23:35 04:03 WBC RBC Hgb Lymph % (Auto) Lymph # (Auto) Seg Neuts % (Manual) Lymphocytes % (Manual) Seg Neutrophils # Seg Neutrophils # Man Lymphocytes # (Manual) D-Dimer ABG pH POC ABG pCO2 POC ABG pO2 ABG pO2 72.7 L ABG HCO3 35.5 H ABG O2 Saturation ABG Base Excess 9.4 H ABG Hemoglobin 10.6 L ABG Oxyhemoglobin ABG Sodium ABG Potassium ABG Chloride ABG Glucose Oxyhemoglobin 93.6 L Chloride Carbon Dioxide BUN Creatinine Glucose POC Glucose 173 H 181 H Calcium Ferritin Lactate Dehydrogenase C-Reactive Protein Total Protein Albumin Arterial Blood Glucose Arterial Blood Ionized Calcium Coronavirus (PCR) SARS-CoV-2 IgG Ab 07/16/20 07/16/20 07/16/20 05:35 09:00 09:00 WBC 16.5 H RBC 3.59 L Hgb Lymph % (Auto) Lymph # (Auto) Seg Neuts % (Manual) 96.0 H Lymphocytes % (Manual) 3.0 L Seg Neutrophils # Seg Neutrophils # Man 15.8 H Lymphocytes # (Manual) 0.5 L D-Dimer ABG pH POC ABG pCO2 POC ABG pO2 ABG pO2 ABG HCO3 ABG O2 Saturation ABG Base Excess ABG Hemoglobin ABG Oxyhemoglobin ABG Sodium ABG Potassium ABG Chloride ABG Glucose Oxyhemoglobin Chloride Carbon Dioxide 39 H D BUN 25 H Creatinine 0.4 L Glucose 167 H POC Glucose 129 H Calcium 8.3 L Ferritin Lactate Dehydrogenase C-Reactive Protein Total Protein Albumin Arterial Blood Glucose Arterial Blood Ionized Calcium Coronavirus (PCR) SARS-CoV-2 IgG Ab 07/16/20 07/16/20 07/17/20 12:32 18:28 00:09 WBC RBC Hgb Lymph % (Auto) Lymph # (Auto) Seg Neuts % (Manual) Lymphocytes % (Manual) Seg Neutrophils # Seg Neutrophils # Man Lymphocytes # (Manual) D-Dimer ABG pH POC ABG pCO2 POC ABG pO2 ABG pO2 ABG HCO3 ABG O2 Saturation ABG Base Excess ABG Hemoglobin ABG Oxyhemoglobin ABG Sodium ABG Potassium ABG Chloride ABG Glucose Oxyhemoglobin Chloride Carbon Dioxide BUN Creatinine Glucose POC Glucose 187 H 174 H 184 H Calcium Ferritin Lactate Dehydrogenase C-Reactive Protein Total Protein Albumin Arterial Blood Glucose Arterial Blood Ionized Calcium Coronavirus (PCR) SARS-CoV-2 IgG Ab 07/17/20 07/17/20 07/17/20 04:30 05:47 13:03 WBC RBC Hgb Lymph % (Auto) Lymph # (Auto) Seg Neuts % (Manual) Lymphocytes % (Manual) Seg Neutrophils # Seg Neutrophils # Man Lymphocytes # (Manual) D-Dimer ABG pH POC ABG pCO2 POC ABG pO2 ABG pO2 ABG HCO3 38.1 H ABG O2 Saturation ABG Base Excess 11.3 H ABG Hemoglobin 10.5 L ABG Oxyhemoglobin ABG Sodium ABG Potassium ABG Chloride ABG Glucose Oxyhemoglobin Chloride Carbon Dioxide BUN Creatinine Glucose POC Glucose 135 H 210 H Calcium Ferritin Lactate Dehydrogenase C-Reactive Protein Total Protein Albumin Arterial Blood Glucose Arterial Blood Ionized Calcium Coronavirus (PCR) SARS-CoV-2 IgG Ab 07/17/20 07/17/20 07/18/20 16:50 23:39 04:01 WBC RBC Hgb Lymph % (Auto) Lymph # (Auto) Seg Neuts % (Manual) Lymphocytes % (Manual) Seg Neutrophils # Seg Neutrophils # Man Lymphocytes # (Manual) D-Dimer ABG pH POC ABG pCO2 56.8 H POC ABG pO2 61.9 L ABG pO2 ABG HCO3 ABG O2 Saturation ABG Base Excess ABG Hemoglobin 11.7 L ABG Oxyhemoglobin ABG Sodium 134.2 L ABG Potassium 4.7 H ABG Chloride 97.0 L ABG Glucose 173 H Oxyhemoglobin Chloride Carbon Dioxide BUN Creatinine Glucose POC Glucose 193 H 163 H Calcium Ferritin Lactate Dehydrogenase C-Reactive Protein Total Protein Albumin Arterial Blood Glucose 173 H Arterial Blood Ionized Calcium Coronavirus (PCR) SARS-CoV-2 IgG Ab 07/18/20 07/18/20 07/18/20 05:41 12:03 17:26 WBC RBC Hgb Lymph % (Auto) Lymph # (Auto) Seg Neuts % (Manual) Lymphocytes % (Manual) Seg Neutrophils # Seg Neutrophils # Man Lymphocytes # (Manual) D-Dimer ABG pH POC ABG pCO2 POC ABG pO2 ABG pO2 ABG HCO3 ABG O2 Saturation ABG Base Excess ABG Hemoglobin ABG Oxyhemoglobin ABG Sodium ABG Potassium ABG Chloride ABG Glucose Oxyhemoglobin Chloride Carbon Dioxide BUN Creatinine Glucose POC Glucose 153 H 177 H 160 H Calcium Ferritin Lactate Dehydrogenase C-Reactive Protein Total Protein Albumin Arterial Blood Glucose Arterial Blood Ionized Calcium Coronavirus (PCR) SARS-CoV-2 IgG Ab 07/18/20 07/19/20 07/19/20 23:58 04:15 05:05 WBC RBC Hgb Lymph % (Auto) Lymph # (Auto) Seg Neuts % (Manual) Lymphocytes % (Manual) Seg Neutrophils # Seg Neutrophils # Man Lymphocytes # (Manual) D-Dimer ABG pH 7.465 H POC ABG pCO2 49.1 H POC ABG pO2 49.4 L ABG pO2 ABG HCO3 ABG O2 Saturation ABG Base Excess ABG Hemoglobin 11.6 L ABG Oxyhemoglobin ABG Sodium 132.3 L ABG Potassium ABG Chloride 97.0 L ABG Glucose 148 H Oxyhemoglobin Chloride Carbon Dioxide BUN Creatinine Glucose POC Glucose 144 H 117 H Calcium Ferritin Lactate Dehydrogenase C-Reactive Protein Total Protein Albumin Arterial Blood Glucose 148 H Arterial Blood Ionized Calcium Coronavirus (PCR) SARS-CoV-2 IgG Ab 07/19/20 07/19/20 07/19/20 08:30 08:30 13:21 WBC 17.2 H RBC 3.59 L Hgb Lymph % (Auto) Lymph # (Auto) Seg Neuts % (Manual) Lymphocytes % (Manual) Seg Neutrophils # Seg Neutrophils # Man Lymphocytes # (Manual) D-Dimer ABG pH POC ABG pCO2 POC ABG pO2 ABG pO2 ABG HCO3 ABG O2 Saturation ABG Base Excess ABG Hemoglobin ABG Oxyhemoglobin ABG Sodium ABG Potassium ABG Chloride ABG Glucose Oxyhemoglobin Chloride 95.7 L Carbon Dioxide 37 H BUN 20 H Creatinine 0.4 L Glucose 125 H POC Glucose 137 H Calcium 8.1 L Ferritin Lactate Dehydrogenase C-Reactive Protein Total Protein Albumin Arterial Blood Glucose Arterial Blood Ionized Calcium Coronavirus (PCR) SARS-CoV-2 IgG Ab 07/19/20 07/19/20 07/20/20 16:29 17:28 00:25 WBC RBC Hgb Lymph % (Auto) Lymph # (Auto) Seg Neuts % (Manual) Lymphocytes % (Manual) Seg Neutrophils # Seg Neutrophils # Man Lymphocytes # (Manual) D-Dimer ABG pH POC ABG pCO2 53.4 H POC ABG pO2 71.0 L ABG pO2 ABG HCO3 ABG O2 Saturation ABG Base Excess ABG Hemoglobin 11.2 L ABG Oxyhemoglobin 93.6 L ABG Sodium 130.9 L ABG Potassium ABG Chloride 95.0 L ABG Glucose 188 H Oxyhemoglobin Chloride Carbon Dioxide BUN Creatinine Glucose POC Glucose 174 H 188 H Calcium Ferritin Lactate Dehydrogenase C-Reactive Protein Total Protein Albumin Arterial Blood Glucose 188 H Arterial Blood Ionized Calcium 4.4 L Coronavirus (PCR) SARS-CoV-2 IgG Ab 07/20/20 07/20/20 07/20/20 04:14 05:23 12:12 WBC RBC Hgb Lymph % (Auto) Lymph # (Auto) Seg Neuts % (Manual) Lymphocytes % (Manual) Seg Neutrophils # Seg Neutrophils # Man Lymphocytes # (Manual) D-Dimer ABG pH POC ABG pCO2 52.7 H POC ABG pO2 59.5 L ABG pO2 ABG HCO3 ABG O2 Saturation ABG Base Excess ABG Hemoglobin 10.6 L ABG Oxyhemoglobin ABG Sodium 134.4 L ABG Potassium ABG Chloride ABG Glucose 176 H Oxyhemoglobin Chloride Carbon Dioxide BUN Creatinine Glucose POC Glucose 212 H 190 H Calcium Ferritin Lactate Dehydrogenase C-Reactive Protein Total Protein Albumin Arterial Blood Glucose 176 H Arterial Blood Ionized Calcium 4.5 L Coronavirus (PCR) SARS-CoV-2 IgG Ab 07/20/20 07/21/20 07/21/20 16:59 00:01 04:30 WBC RBC Hgb Lymph % (Auto) Lymph # (Auto) Seg Neuts % (Manual) Lymphocytes % (Manual) Seg Neutrophils # Seg Neutrophils # Man Lymphocytes # (Manual) D-Dimer ABG pH 7.468 H POC ABG pCO2 POC ABG pO2 63.3 L ABG pO2 ABG HCO3 ABG O2 Saturation ABG Base Excess ABG Hemoglobin 11 L ABG Oxyhemoglobin ABG Sodium 135.0 L ABG Potassium ABG Chloride ABG Glucose 204 H Oxyhemoglobin Chloride Carbon Dioxide BUN Creatinine Glucose POC Glucose 201 H 177 H Calcium Ferritin Lactate Dehydrogenase C-Reactive Protein Total Protein Albumin Arterial Blood Glucose 204 H Arterial Blood Ionized Calcium 4.5 L Coronavirus (PCR) SARS-CoV-2 IgG Ab 07/21/20 07/21/20 07/21/20 05:26 11:50 17:16 WBC RBC Hgb Lymph % (Auto) Lymph # (Auto) Seg Neuts % (Manual) Lymphocytes % (Manual) Seg Neutrophils # Seg Neutrophils # Man Lymphocytes # (Manual) D-Dimer ABG pH POC ABG pCO2 POC ABG pO2 ABG pO2 ABG HCO3 ABG O2 Saturation ABG Base Excess ABG Hemoglobin ABG Oxyhemoglobin ABG Sodium ABG Potassium ABG Chloride ABG Glucose Oxyhemoglobin Chloride Carbon Dioxide BUN Creatinine Glucose POC Glucose 175 H 157 H 148 H Calcium Ferritin Lactate Dehydrogenase C-Reactive Protein Total Protein Albumin Arterial Blood Glucose Arterial Blood Ionized Calcium Coronavirus (PCR) SARS-CoV-2 IgG Ab 07/22/20 07/22/20 07/22/20 00:01 03:26 05:16 WBC RBC Hgb Lymph % (Auto) Lymph # (Auto) Seg Neuts % (Manual) Lymphocytes % (Manual) Seg Neutrophils # Seg Neutrophils # Man Lymphocytes # (Manual) D-Dimer ABG pH POC ABG pCO2 POC ABG pO2 54.2 L ABG pO2 ABG HCO3 ABG O2 Saturation ABG Base Excess ABG Hemoglobin 10.9 L ABG Oxyhemoglobin ABG Sodium 133.7 L ABG Potassium ABG Chloride ABG Glucose 217 H Oxyhemoglobin Chloride Carbon Dioxide BUN Creatinine Glucose POC Glucose 172 H 182 H Calcium Ferritin Lactate Dehydrogenase C-Reactive Protein Total Protein Albumin Arterial Blood Glucose 217 H Arterial Blood Ionized Calcium 4.5 L Coronavirus (PCR) SARS-CoV-2 IgG Ab 07/22/20 07/22/20 07/23/20 11:43 17:08 04:00 WBC 11.6 H RBC 3.54 L Hgb Lymph % (Auto) Lymph # (Auto) Seg Neuts % (Manual) 94.0 H Lymphocytes % (Manual) 5.0 L Seg Neutrophils # Seg Neutrophils # Man 10.9 H Lymphocytes # (Manual) 0.6 L D-Dimer ABG pH POC ABG pCO2 POC ABG pO2 ABG pO2 ABG HCO3 ABG O2 Saturation ABG Base Excess ABG Hemoglobin ABG Oxyhemoglobin ABG Sodium ABG Potassium ABG Chloride ABG Glucose Oxyhemoglobin Chloride Carbon Dioxide BUN Creatinine Glucose POC Glucose 159 H 163 H Calcium Ferritin Lactate Dehydrogenase C-Reactive Protein Total Protein Albumin Arterial Blood Glucose Arterial Blood Ionized Calcium Coronavirus (PCR) SARS-CoV-2 IgG Ab 07/23/20 07/23/20 07/23/20 04:00 04:53 04:54 WBC RBC Hgb Lymph % (Auto) Lymph # (Auto) Seg Neuts % (Manual) Lymphocytes % (Manual) Seg Neutrophils # Seg Neutrophils # Man Lymphocytes # (Manual) D-Dimer ABG pH 7.453 H POC ABG pCO2 POC ABG pO2 ABG pO2 ABG HCO3 32.4 H ABG O2 Saturation ABG Base Excess 7.5 H ABG Hemoglobin 10.7 L ABG Oxyhemoglobin ABG Sodium ABG Potassium ABG Chloride ABG Glucose Oxyhemoglobin Chloride Carbon Dioxide 35 H BUN Creatinine 0.4 L Glucose 112 H POC Glucose 169 H Calcium 8.2 L Ferritin Lactate Dehydrogenase C-Reactive Protein Total Protein Albumin Arterial Blood Glucose Arterial Blood Ionized Calcium Coronavirus (PCR) SARS-CoV-2 IgG Ab 07/23/20 07/23/20 07/23/20 11:50 23:19 Unknown WBC RBC Hgb Lymph % (Auto) Lymph # (Auto) Seg Neuts % (Manual) Lymphocytes % (Manual) Seg Neutrophils # Seg Neutrophils # Man Lymphocytes # (Manual) D-Dimer ABG pH POC ABG pCO2 POC ABG pO2 ABG pO2 ABG HCO3 ABG O2 Saturation ABG Base Excess ABG Hemoglobin ABG Oxyhemoglobin ABG Sodium ABG Potassium ABG Chloride ABG Glucose Oxyhemoglobin Chloride Carbon Dioxide BUN Creatinine Glucose POC Glucose 118 H 168 H Calcium Ferritin Lactate Dehydrogenase C-Reactive Protein Total Protein Albumin Arterial Blood Glucose Arterial Blood Ionized Calcium Coronavirus (PCR) Positive A SARS-CoV-2 IgG Ab 07/24/20 07/24/20 04:11 05:37 WBC RBC Hgb Lymph % (Auto) Lymph # (Auto) Seg Neuts % (Manual) Lymphocytes % (Manual) Seg Neutrophils # Seg Neutrophils # Man Lymphocytes # (Manual) D-Dimer ABG pH POC ABG pCO2 POC ABG pO2 ABG pO2 54.4 L ABG HCO3 34.3 H ABG O2 Saturation 89.0 L ABG Base Excess 8.5 H ABG Hemoglobin 11.0 L ABG Oxyhemoglobin ABG Sodium ABG Potassium ABG Chloride ABG Glucose Oxyhemoglobin 87.0 L Chloride Carbon Dioxide BUN Creatinine Glucose POC Glucose 115 H Calcium Ferritin Lactate Dehydrogenase C-Reactive Protein Total Protein Albumin Arterial Blood Glucose Arterial Blood Ionized Calcium Coronavirus (PCR) SARS-CoV-2 IgG Ab Allied health notes reviewed: nursing
[2020-07-24] MEDS: BUDESONIDE 0.5 MG/2 ML NEBU IH SCH ×2 (08:20→20:08)
[2020-07-24] MEDS: ALBUTEROL 2.5 MG/3 ML NEBU IH SCH ×3 (08:20→20:08)
[2020-07-24] MEDS: ARFORMOTEROL 15 MCG/2 ML NEBU IH SCH ×2 (08:21→20:08)
[2020-07-24] MEDS: DOCUSATE SODIUM 100 MG/10 ML ORAL LIQD PO SCH ×2 (09:34→22:12)
[2020-07-24] MEDS: ASCORBIC ACID 500 MG TAB PO SCH ×2 (09:35→22:11)
[2020-07-24] MEDS: QUEtiapine 100 MG TAB PO SCH ×2 (09:35→22:12)
[2020-07-24] MEDS: HYDROXYCHLOROQUINE 200 MG TAB PO SCH (09:35)
[2020-07-24] MEDS: LANSOPRAZOLE 30 MG SOLUTAB FEEDTUBE SCH (09:35)
[2020-07-24] MEDS: VENLAFAXINE 37.5 MG TAB PO SCH (09:35)
[2020-07-24] MEDS: ASPIRIN 81 MG TAB CHEW PO SCH (09:35)
[2020-07-24] MEDS: ZINC SULFATE 220 MG CAP PO SCH ×2 (09:36→22:11)
[2020-07-24] MEDS: ENOXAPARIN 30 MG/0.3 ML INJ SUB-Q SCH ×2 (09:36→22:11)
--- NOTE | 2020-07-24 13:04 | Progress Note ---
Assessment and Plan Assessment and plan: --Acute asthma exacerbation on iv steroid Oxygen supplementation as needed Continue montelukast Monitor oxygen saturations closely -- COVID-19 Tested positive for COVID-19 in [place] iv steroid, s/p Remdesivir for 5 days s/p convalescent plasma transfusion Procalcitonin <0.05, ID on board follow ferritin, ldh, d-dimer levels -- Acute hypoxic respiratory failure Now intubated on 07/09/20 overnight From COVID-19 and asthma exacerbation Continue steroids Continue oxygen supplementation -- GERD (gastroesophageal reflux disease) cont Pantoprazole --SLE (systemic lupus erythematosus related syndrome) Continue home medications-hydroxychloroquine -- DVT prophylaxis Lovenox 30 mg twice daily -- Full code status brief History: 50-year-old female with a past medical history of asthma, hypertension, and lupus complains of generalized body weakness, fever and shortness of breath. Patient states the symptoms started right after she was discharged from [place] on 07/05. She has associated wheezing, fever, cough and she has been using her inhalers with no significant effect. She also has associated diarrhea. Of note, she was hospitalized here in [facility] on 06/28 for asthma exacerbation and had a negative Covid test during the admission. She was treated and discharged. She presented to [place] for further evaluation after discharge from here and over there, she was found to have positive COVID-19 test and she was placed on steroids and subsequently discharged on Eliquis prophylaxis for DVT. She states that she did not receive remdesivir during the admission. She was discharged from [place] on 07/05. She went home and felt worse. She said that she passed out about 2 times. Due to persistent symptoms, she called EMS who brought her to [facility] for further evaluation. Daily course: 07/07. Patient seen and examined at bedside this morning. Patient is wheezing and slightly short of breath. Change steroids to Solu-Medrol 60 every 6. Added formoterol and budesonide. ID evaluation pending. Started patient on remdesivir as she is short of breath. 07/07: Placed on BIPAP this AM. Will need pulm evaluation. Solumedrol 60mg q6. STAT blood gas ordered. She will be transferred to [facility]. 07/08: Patient took oxygen off and attempts to go to the bathroom and subsequently became hypoxemic with sats down into the low 80s. Patient became weak short of breath. After that time patient had persistent coughing and cannot maintain sats until nonrebreather was placed. Patient is transferred to the ICU unit and monitored for respiratory failure possibly requiring intubation. 07/09: ID recommended for convalescent plasma, ordered. Patient intubated overnight. Continue to monitor clinically, scheduled lab, follow inflammatory markers 07/10: Wait for convalescent plasma transfusion, wean off from ventilator as tolerated 07/11: Called patient's daughter and updated. Continue to wean off vent as tolerated, continue tube feeding, monitor vital sign CBC BMP daily. 07/12: remains intubated and sedated. follow inflammatory markers - wean off vent as tolerated 07/13: wean off vent as tolerated, cxr in the am. reviewed vitals 07/14: remains intubated, has not received convalescent plasma yet. Reviewed vitals, tolerating tube feeding. Wean off vent per critical care as tolerated. 07/15: cont to provide supportive care, wean off vent as tolerated - difficult to wean off. 07/16: CXR findings improving, cont to wean off vent 07/17: Follow inflammatory markers, monitor off antibiotics. Wean off vent per pulmonary as tolerated 07/18: Wean off vent per pulmonary as tolerated,Follow inflammatory markers, monitor off antibiotics. 07/19: Wean off vent per pulmonary as tolerated,Follow inflammatory markers, monitor off antibiotics. SBT trial 07/20: Wean off vent as tolerated, continue supportive care, follow inflammatory markers 07/21: continue supportive care, follow inflammatory markers, wean off vent as tolerated 07/22: Continue to wean off from ventilator as tolerated per pulmonary recommendation, follow inflammatory markers. Repeat CBC BMP in the morning. We will repeat Covid test tomorrow to see if patient cleared the infection. 07/23. Continue to wean off from ventilator as tolerated per pulmonary recommen dation, follow inflammatory markers. Currently AC mode, rate 16, tidal volume 450 with FiO2 75%vand PEEP 14 07/24/2020. Continue ventilatory support with AC mode, rate 16, tidal volume 450, FiO2 100% and PEEP of 16. Continue Brovana and Pulmicort. Continue IV steroids 40 mg IV every 8 hours. Anticoagulation with Lovenox 30 mg twice daily. Patient currently sedated with Versed and fentanyl. The high probability of a clinically significant, sudden or life threatening deterioration of the [[facility], respiratory, DIRECTOR CHEMISTRY] system(s) required my full and direct attention, intervention and personal management. The aggregate critical care time was [32] minutes. This time is in addition to time spent performing reported procedures but includes the following: [x] Data Review and interpretation [x] Patient assessment and monitoring of vital signs [x] Documentation [x] Medication orders and management History Interval history: No new issues Hospitalist Physical - Constitutional Vitals: Temp Pulse Resp BP Pulse Ox 100.1 F H 84 23 102/55 95 07/24/20 08:00 07/24/20 12:48 07/24/20 11:00 07/24/20 12:48 07/24/20 12:48 General appearance: Present: no acute distress, well-nourished - EENT Eyes: Present: PERRL, EOM intact ENT: hearing intact, clear oral mucosa, dentition normal - Neck Neck: Present: supple, normal ROM - Respiratory Respiratory effort: normal Respiratory: bilateral: CTA - Cardiovascular Rhythm: regular Heart Sounds: Present: S1 & S2. Absent: gallop, rub - Extremities Extremities: no ischemia, No edema, Full ROM - Abdominal General gastrointestinal: soft, non-tender, non-distended, normal bowel sounds - Integumentary Integumentary: Present: clear, warm, dry - Neurologic Neurologic: CNII-XII intact, moves all extremities Results - Labs CBC & Chem 7: 07/23/20 04:00 07/23/20 04:00 Labs: Laboratory Last Values WBC 11.6 K/mm3 (4.5-11.0) H 07/23/20 04:00 RBC 3.54 M/mm3 (3.65-5.03) L 07/23/20 04:00 Hgb 10.7 gm/dl (10.1-14.3) 07/23/20 04:00 Hct 32.1 % (30.3-42.9) 07/23/20 04:00 MCV 91 fl (79-97) 07/23/20 04:00 MCH 30 pg (28-32) 07/23/20 04:00 MCHC 33 % (30-34) 07/23/20 04:00 RDW 15.0 % (13.2-15.2) 07/23/20 04:00 Plt Count 201 K/mm3 (140-440) 07/23/20 04:00 Lymph % (Auto) 4.7 % (13.4-35.0) L 07/09/20 04:00 [place] % (Auto) 4.0 % (0.0-7.3) 07/09/20 04:00 Eos % (Auto) 0.0 % (0.0-4.3) 07/09/20 04:00 Baso % (Auto) 0.1 % (0.0-1.8) 07/09/20 04:00 Lymph # (Auto) 0.7 K/mm3 (1.2-5.4) L 07/09/20 04:00 [place] # (Auto) 0.6 K/mm3 (0.0-0.8) 07/09/20 04:00 Eos # (Auto) 0.0 K/mm3 (0.0-0.4) 07/09/20 04:00 Baso # (Auto) 0.0 K/mm3 (0.0-0.1) 07/09/20 04:00 Add Manual Diff Complete 07/23/20 04:00 Total Counted 100 07/23/20 04:00 Seg Neutrophils % [place] Performer 07/16/20 09:00 Seg Neuts % (Manual) 94.0 % (40.0-70.0) H 07/23/20 04:00 Band Neutrophils % 0 % 07/23/20 04:00 Lymphocytes % (Manual) 5.0 % (13.4-35.0) L 07/23/20 04:00 Reactive Lymphs % (Man) 0 % 07/23/20 04:00 Monocytes % (Manual) 1.0 % (0.0-7.3) 07/23/20 04:00 Eosinophils % (Manual) 0 % (0.0-4.3) 07/23/20 04:00 Basophils % (Manual) 0 % (0.0-1.8) 07/23/20 04:00 Metamyelocytes % 0 % 07/23/20 04:00 Myelocytes % 0 % 07/23/20 04:00 Promyelocytes % 0 % 07/23/20 04:00 Blast Cells % 0 % 07/23/20 04:00 Nucleated RBC % Not Reportable 07/23/20 04:00 Seg Neutrophils # 14.2 K/mm3 (1.8-7.7) H 07/09/20 04:00 Seg Neutrophils # Man 10.9 K/mm3 (1.8-7.7) H 07/23/20 04:00 Band Neutrophils # 0.0 K/mm3 07/23/20 04:00 Lymphocytes # (Manual) 0.6 K/mm3 (1.2-5.4) L 07/23/20 04:00 Abs React Lymphs (Man) 0.0 K/mm3 07/23/20 04:00 Monocytes # (Manual) 0.1 K/mm3 (0.0-0.8) 07/23/20 04:00 Eosinophils # (Manual) 0.0 K/mm3 (0.0-0.4) 07/23/20 04:00 Basophils # (Manual) 0.0 K/mm3 (0.0-0.1) 07/23/20 04:00 Metamyelocytes # 0.0 K/mm3 07/23/20 04:00 Myelocytes # 0.0 K/mm3 07/23/20 04:00 Promyelocytes # 0.0 K/mm3 07/23/20 04:00 Blast Cells # 0.0 K/mm3 07/23/20 04:00 WBC Morphology Not Reportable 07/23/20 04:00 Hypersegmented Neuts Not Reportable 07/23/20 04:00 Hyposegmented Neuts Not Reportable 07/23/20 04:00 Hypogranular Neuts Not Reportable 07/23/20 04:00 Smudge Cells Not Reportable 07/23/20 04:00 Toxic Granulation Not Reportable 07/23/20 04:00 Toxic Vacuolation Not Reportable 07/23/20 04:00 Dohle Bodies Not Reportable 07/23/20 04:00 Pelger-Huet Anomaly Not Reportable 07/23/20 04:00 Savanna Rods Not Reportable 07/23/20 04:00 Platelet Estimate Consistent w auto 07/23/20 04:00 Clumped Platelets Not Reportable 07/23/20 04:00 Plt Clumps, EDTA Not Reportable 07/23/20 04:00 Large Platelets Not Reportable 07/23/20 04:00 Giant Platelets Not Reportable 07/23/20 04:00 Platelet Satelliting Not Reportable 07/23/20 04:00 Plt Morphology Comment Not Reportable 07/23/20 04:00 RBC Morphology Not Reportable 07/23/20 04:00 Dimorphic RBCs Not Reportable 07/23/20 04:00 Polychromasia Few 07/23/20 04:00 Hypochromasia Not Reportable 07/23/20 04:00 Poikilocytosis Not Reportable 07/23/20 04:00 Anisocytosis Not Reportable 07/23/20 04:00 Microcytosis Not Reportable 07/23/20 04:00 Macrocytosis Not Reportable 07/23/20 04:00 Spherocytes Not Reportable 07/23/20 04:00 Pappenheimer Bodies Not Reportable 07/23/20 04:00 Sickle Cells Not Reportable 07/23/20 04:00 Target Cells Not Reportable 07/23/20 04:00 Tear Drop Cells Few 07/23/20 04:00 Ovalocytes Not Reportable 07/23/20 04:00 Helmet Cells Not Reportable 07/23/20 04:00 [place] Bodies Not Reportable 07/23/20 04:00 [place] Rings Not Reportable 07/23/20 04:00 [place] Cells Not Reportable 07/23/20 04:00 Bite Cells Not Reportable 07/23/20 04:00 Crenated Cell Not Reportable 07/23/20 04:00 Elliptocytes Not Reportable 07/23/20 04:00 Acanthocytes (Spur) Not Reportable 07/23/20 04:00 Rouleaux Not Reportable 07/23/20 04:00 Hemoglobin C Crystals Not Reportable 07/23/20 04:00 Schistocytes Not Reportable 07/23/20 04:00 Malaria parasites Not Reportable 07/23/20 04:00 Junaid Bodies Not Reportable 07/23/20 04:00 Hem Pathologist Commnt No 07/23/20 04:00 D-Dimer 826.36 ng/mlDDU (0-234) H 07/13/20 07:20 ABG pH 7.422 pH Units (7.350-7.450) 07/24/20 04:11 POC ABG pCO2 46.1 mmHg (32.0-48.0) 07/22/20 03:26 ABG pCO2 53.9 mm Hg 07/24/20 04:11 POC ABG pO2 54.2 mmHg (83-108) L 07/22/20 03: ABG pO2 54.4 mm Hg (80.0-90.0) L 07/24/20 04:11 POC ABG HCO3 30.0 07/22/20 03:26 ABG HCO3 34.3 mmol/L (20.0-26.0) H 07/24/20 04:11 ABG O2 Saturation 89.0 % (95.0-99.0) L 07/24/20 04:11 ABG O2 Content 13.5 (0.0-44) 07/24/20 04:11 POC ABG Base Excess 5.0 07/22/20 03: ABG Base Excess 8.5 mmol/L (-2.0-3.0) H 07/24/20 04:11 ABG Hemoglobin 11.0 gm/dl (12.0-16.0) L 07/24/20 04:11 ABG Oxyhemoglobin 93.6 (94-98) L 07/19/20 16:29 ABG Carboxyhemoglobin 1.6 % (0.0-5.0) 07/24/20 04:11 ABG Methemoglobin 0.5 % (0.0-1.5) 07/24/20 04:11 ABG Sodium 133.7 mmol/L (136.0-145.0) L 07/22/20 03:26 ABG Potassium 4.2 mmol/L (3.40-4.50) 07/22/20 03:26 ABG Chloride 100.0 mmol/L (98-107) 07/22/20 03:26 ABG Glucose 217 mg/dL (65-95) H 07/22/20 03:26 Oxyhemoglobin 87.0 % (95.0-99.0) L 07/24/20 04:11 Carboxyhemoglobin 0.7 (0.5-1.5) 07/19/20 16:29 FiO2 70 % 07/24/20 04:11 Sodium 137 mmol/L (137-145) 07/23/20 04:00 Potassium 3.9 mmol/L (3.6-5.0) 07/23/20 04:00 Chloride 99.6 mmol/L (98-107) 07/23/20 04:00 Carbon Dioxide 35 mmol/L (22-30) H 07/23/20 04:00 Anion Gap 6 mmol/L 07/23/20 04:00 BUN 14 mg/dL (7-17) 07/23/20 04:00 Creatinine 0.4 mg/dL (0.6-1.2) L 07/23/20 04:00 Estimated GFR > 60 ml/min 07/23/20 04:00 BUN/Creatinine Ratio 35 % 07/23/20 04:00 Glucose 112 mg/dL (65-100) H 07/23/20 04:00 POC Glucose 166 mg/dL (70-105) H 07/24/20 11:42 Lactic Acid 1.90 mmol/L (0.7-2.0) 07/09/20 Unknown Calcium 8.2 mg/dL (8.4-10.2) L 07/23/20 04:00 Phosphorus 3.20 mg/dL (2.5-4.5) 07/08/20 16:13 Magnesium 2.20 mg/dL (1.7-2.3) 07/08/20 16:13 Ferritin 219.8 ng/mL (10.0-200.0) H 07/13/20 07:20 Total Bilirubin 0.20 mg/dL (0.1-1.2) 07/13/20 07:20 AST 14 units/L (5-40) 07/13/20 07:20 ALT 13 units/L (7-56) 07/13/20 07:20 Alkaline Phosphatase 53 units/L (35-129) 07/13/20 07:20 Lactate Dehydrogenase 531 units/L (91-180) H 07/15/20 09:00 C-Reactive Protein 1.80 mg/dL (0.00-1.30) H 07/13/20 07:20 Total Protein 5.8 g/dL (6.3-8.2) L 07/13/20 07:20 Albumin 3.2 g/dL (3.9-5) L 07/13/20 07:20 Albumin/Globulin Ratio 1.2 % 07/13/20 07:20 Triglycerides 130 mg/dL (2-149) 07/23/20 04:42 Procalcitonin < 0.05 ng/mL (<0.15) 07/10/20 12:10 Arterial Blood Glucose 217 mg/dL (65-95) H 07/22/20 03:26 Arterial Blood Ionized Calcium 4.5 mg/dL (4.6-5.3) L 07/22/20 03:26 Urine Color Yellow (Yellow) 07/11/20 09:30 Urine Turbidity Clear (Clear) 07/11/20 09:30 Urine pH 5.0 (5.0-7.0) 07/11/20 09:30 Ur Specific [place] 1.028 (1.003-1.030) 07/11/20 09:30 Urine Protein <15 mg/dl mg/dL (Negative) 07/11/20 09:30 Urine Glucose (UA) Neg mg/dL (Negative) 07/11/20 09:30 Urine Ketones Neg mg/dL (Negative) 07/11/20 09:30 Urine Blood Neg (Negative) 07/11/20 09:30 Urine Nitrite Neg (Negative) 07/11/20 09:30 Urine Bilirubin Neg (Negative) 07/11/20 09:30 Urine Urobilinogen 2.0 mg/dL (<2.0) 07/11/20 09:30 Ur Leukocyte Esterase Neg (Negative) 07/11/20 09:30 Urine WBC (Auto) 1.0 /HPF (0.0-6.0) 07/11/20 09:30 Urine RBC (Auto) 1.0 /HPF (0.0-6.0) 07/11/20 09:30 U Epithel Cells (Auto) 1.0 /HPF (0-13.0) 07/11/20 09:30 Urine Mucus Few /HPF 07/11/20 09:30 Coronavirus (PCR) Positive (Negative) A 07/23/20 Unknown SARS-CoV-2 IgG Ab Reactive (NonReactive) A 07/15/20 14:30 Blood Type O POSITIVE 07/09/20 15:30 Antibody Screen Negative 07/09/20 15:30 - Diagnostic Impressions Diagnostic Impressions: Echocardiogram 07/19/20 13:13 Transthoracic Echocardiogram Indication: CHF BP: 106/58 Conclusions *The left ventricular systolic function is within normal limits. There are no wall motion abnormalities observed. *The estimated ejection fraction is 60-65%. *Normal left ventricular diastolic filling is observed. Findings Procedure Info: The study quality is fair. Left Ventricle: The left ventricular chamber size, wall thickness and systolic function are within normal limits. There are no wall motion abnormalities observed. Ejection fraction is normal. The estimated ejection fraction is 60-65%. Normal left ventricular diastolic filling is observed. Left Atrium: The left atrium is normal in size with no visual thrombus identified. Right Ventricle: The right ventricular chamber size and systolic function are within normal limits. Right Atrium: The right atrium appears normal. Aortic Valve: The aortic valve is trileaflet. The leaflets are thin with normal excursion. There is no aortic stenosis or regurgitation present. Mitral Valve: The mitral valve leaflets are mildly thickened. There is trace of mitral regurgitation. There is no evidence of mitral stenosis. Tricuspid Valve: The tricuspid valve leaflets are normal. There is trace tricuspid regurgitation. The right ventricular systolic pressure is calculated at 14 mmHg. There is no tricuspid stenosis. Pulmonic Valve: The pulmonic valve appears normal. There is mild pulmonic regurgitation. There is no pulmonic stenosis. Pericardium: The pericardium appears normal. Aorta: The aorta appears normal. Pulmonary Artery: The main pulmonary artery appears normal. Venous: The inferior vena cava appears normal in size. There is a greater than 50% respiratory change in the inferior vena cava dimension. Measurements Chambers 2D Name Value Normal Range IVSd (2D) 1.08 cm (0.6 - 1.1) LVPWd (2D) 0.91 cm (0.6 - 1.1) LVIDd (2D) 4.61 cm (3.7 - 5.6) LVIDs (2D) 3.12 cm (2 - 3.8) LV FS (2D) 32.38 % - EF Teichholz (2D) 60.72 % - Ao root diameter (2D) 3.01 cm (2 - 3.7) Volumes/Mass Name Value Normal Range LA ESV SP 4CH (A/L) 57.18 ml - LA ESV SP 2CH (A/L) 62.63 ml - LA ESV BP (A/L) 60.68 ml - LA ESV BP (A/L) index 28.22 ml/m2 - LA ESV SP 4CH (MOD) 51.17 ml - LA ESV SP 2CH (MOD) 57.8 ml - LA ESV BP (MOD) 54.73 ml - LA ESV BP (MOD) index 25.45 ml/m2 - LV EDV SP 4CH (MOD) 115.34 ml - LV ESV SP 4CH (MOD) 43.26 ml - EF SP 4CH (MOD) 62.5 % - LV EDV SP 2CH (MOD) 43.71 ml - LV ESV SP 2CH (MOD) 17.14 ml - EF SP 2CH (MOD) 60.79 % - LV EDV BP 73.15 ml - LV ESV BP 27.92 ml - BP EF (MOD) 61.83 % - Diastolic/Systolic Function Name Value Normal Range MV E-wave Vmax 0.88 m/sec - MV deceleration time 157.66 msec - MV A-wave Vmax 0.91 m/sec - MV E:A ratio 0.96 ratio - Aortic Valve Name Value Normal Range AV Vmax 1.54 m/sec - AV VTI 31.46 cm - AV peak gradient 9.51 mmHg - AV mean gradient 5.1 mmHg - LVOT diameter 1.95 cm - LVOT Vmax 1.21 m/sec - LVOT VTI 27.59 cm - LVOT peak gradient 5.83 mmHg - LVOT mean gradient 3.3 mmHg - SV LVOT 82.76 ml - SMITH (continuity Vmax) 2.35 cm2 - SMITH (continuity VTI) 2.63 cm2 - Ascending Ao 2.94 cm - Tricuspid Valve Name Value Normal Range TV E-wave Vmax 0.49 m/sec - TR Vmax 1.72 m/sec - TR peak gradient 11.86 mmHg - RAP 3 mmHg - RVSP 14 mmHg - IVC diameter 1.91 cm (1.2 - 2.3) Pulmonic Valve/Qp:Qs Name Value Normal Range PV Vmax 0.94 m/sec - PV peak gradient 3.54 mmHg - MD end-diastolic Vmax 0.54 m/sec - RVOT Vmax 0.68 m/sec - RVOT VTI 13.18 cm - RVOT peak gradient 1.82 mmHg - PV acceleration time 117.98 msec - Tejada/IV: Voiding Method External Female Catheter IV Catheter Type [Left Upper PICC Line arm] IV Catheter Type [Right INT / Saline Lock Forearm] IV Catheter Type [Left Wrist] INT / Saline Lock IV Catheter Type [Left Hand] Peripheral IV Active Medications - Current Medications Current Medications: Generic Name Dose Route Start Last Admin Trade Name Freq PRN Reason Stop Dose Admin Acetaminophen 650 mg 07/06/20 13:39 07/21/20 15:07 Tylenol PO 650 mg Q4H PRN Administration Pain MILD(1-3)/Fever >100.5/WILLETT Albuterol 2.5 mg 07/15/20 14:00 07/24/20 08:20 Proventil IH 2.5 mg TIDRT ROMMEL Administration Alprazolam 0.5 mg 07/07/20 12:28 07/07/20 22:27 Xanax PO 0.5 mg Q8H PRN Administration Anxiety Lipase/Protease/Amylase 1 each 07/08/20 14:50 Pancreaze 10,500 Unit FEEDTUBE PRN PRN For Clogged Feeding Tube Arformoterol Tartrate 15 mcg 07/07/20 09:15 07/24/20 08:21 Brovana Nebu IH Not Given Q12HRT [facility] Ascorbic Acid 500 mg 07/08/20 22:00 07/24/20 09:35 Vitamin C PO 500 mg BID ROMMEL Administration Aspirin 81 mg 07/06/20 14:00 07/24/20 09:35 Baby Aspirin PO 81 mg QDAY ROMMEL Administration Budesonide 0.5 mg 07/07/20 09:15 07/24/20 08:20 Pulmicort IH 0.5 mg Q12HRT ROMMEL Administration Dextrose 50 ml 07/12/20 16:58 D50w (25gm) Syringe IV Q30MIN PRN Hypoglycemia Protocol Docusate Sodium 100 mg 07/16/20 22:00 07/24/20 09:34 Colace PO 100 mg BID ROMMEL Administration Enoxaparin Sodium 30 mg 07/06/20 15:00 07/24/20 09:36 Enoxaparin SUB-Q 30 mg BID ROMMEL Administration Protocol Fentanyl 50 mcg 07/08/20 13:16 07/11/20 09:41 Sublimaze IV 50 mcg Q10MIN PRN Administration ANALGESIA Hydrophilic Ointment 1 applic 07/08/20 13:16 07/22/20 23:01 Vaseline Lip Therapy TP 1 applic Q2HR PRN Administration Dry Lips Hydroxychloroquine Sulfate 200 mg 07/07/20 10:00 07/24/20 09:35 Plaquenil PO 200 mg QDAY ROMMEL Administration Fentanyl Citrate 2,000 mcg in 100 mls @ 4.825 mls/hr 07/08/20 14:00 07/24/20 03:58 Fentanyl Drip Premix IV 2 mcg/kg/hr TITR ROMMEL 9.65 mls/hr Administration Protocol 1 MCG/KG/HR Midazolam HCl 100 mg/ Sodium 100 mls @ 2 mls/hr 07/08/20 15:00 07/23/20 08:41 Chloride IV 4 mg/hr TITR ROMMEL 4 mls/hr Administration Protocol 2 MG/HR Sodium Chloride 500 mls @ 10 mls/hr 07/15/20 15:00 Nacl 0.9% 500 Ml IV DIRECT ROMMEL Propofol 1,000 mg in 100 mls @ 3.3 mls/hr 07/19/20 13:00 07/24/20 04:00 Diprivan 10 Mg/Ml IV 15 mcg/kg/min TITR ROMMEL 9.9 mls/hr Administration Protocol 5 MCG/KG/MIN Insulin Glargine 5 units 07/12/20 17:00 07/23/20 18:36 Lantus SUB-Q 5 units Q24H ROMMEL Administration Insulin Human Regular 0 unit 07/12/20 17:00 07/24/20 12:10 Humulin R SUB-Q 1 unit Q6H ROMMEL Administration Protocol Lansoprazole 30 mg 07/10/20 10:00 07/24/20 09:35 Prevacid Solutab FEEDTUBE 30 mg QDAY ROMMEL Administration Methylprednisolone Sodium Succinate 40 mg 07/22/20 14:00 07/24/20 07:14 Solu-Medrol IV 40 mg Q8H ROMMEL Administration Midazolam HCl 2 mg 07/08/20 14:33 07/18/20 23:46 Versed IV 2 mg Q10MIN PRN Administration Sedation Multi-Ingred Cream/Lotion/Oil/Oint 1 applic 07/08/20 13:16 Artificial Tears Ophth Oint OU Q4HR PRN Dry Eye(s) Ondansetron HCl 4 mg 07/06/20 13:39 07/08/20 10:44 Zofran IV 4 mg Q8H PRN Administration Nausea And Vomiting Polyethylene Glycol 17 gm 07/16/20 22:00 07/24/20 00:33 Miralax 3350 PO Not Given QHS ROMMEL Pseudoephedrine/Acetam/Chlorphenir 10 ml 07/07/20 01:17 07/08/20 08:30 Robitussin Ac PO 10 ml Q4H PRN Administration Cough Quetiapine Fumarate 300 mg 07/21/20 22:00 07/24/20 09:35 Seroquel PO 300 mg BID ROMMEL Administration Simple Syrup 15 ml 07/08/20 14:50 Simple Syrup FEEDTUBE PRN PRN Hypoglycemia Simple Syrup 30 ml 07/08/20 14:50 Simple Syrup FEEDTUBE PRN PRN Hypoglycemia Sodium Bicarbonate 325 mg 07/08/20 14:50 Sodium Bicarbonate FEEDTUBE PRN PRN For Clogged Feeding Tube Sodium Chloride 10 ml 07/06/20 14:00 07/24/20 09:36 Sodium Chloride Flush Syringe 10 Ml IV 10 ml BID ROMMEL Administration Sodium Chloride 10 ml 07/06/20 13:39 Sodium Chloride Flush Syringe 10 Ml IV PRN PRN LINE FLUSH Venlafaxine HCl 37.5 mg 07/07/20 10:00 07/24/20 09:35 Effexor PO 37.5 mg DAILY ROMMEL Administration Zinc Sulfate 220 mg 07/08/20 22:00 07/24/20 09:36 Zinc Sulfate PO 220 mg BID ROMMEL Administration Nutrition/Malnutrition Assess - Dietary Evaluation Nutrition/Malnutrition Findings: Nutrition Notes Start: 07/08/20 14:02 Freq: Status: Active Protocol: Document 07/24/20 12:36 LP (Rec: 07/24/20 12:42 LP [id number]) Nutrition Notes Initial or Follow up Reassessment Current Diagnosis Hypertension,Heart Failure Other Pertinent Diagnosis Acute respiratory failure, COVID(+), GERD, Lupus Current Diet Vital AF 1.2 at 55 mL/hr (goal rate) Labs/Tests Reviewed Pertinent Medications Propofol Height 5 ft 5 in Weight 109.8 kg [place] Body Weight (kg) 56.81 BMI 40.2 Weight Status Obese Subjective/Other Information Pt tolerating TF at goal rate. BM July 22. Percent of energy/protein needs met: 96%/87% Burn Absent Trauma Absent GI Symptoms None Current % PO Negligible Minimum of two criteria No physical signs of malnutrition #1 Nutrition Diagnosis Inadequate oral intake Diagnosis Progress(for reassessment Continues documentation) Is patient on ventilator? Yes Is Patient Ambulatory and/or Out of Bed No REE-([facility]-confined to bed) 2077.944 Kcal/Kg value to use for calculation 15 Approximate Energy Requirements Using 1647 kcal/Kg Calculation Used for Recommendations Kcal/kg Additional Notes Pro: greater than 114 g (>2 g/ kg IBW) Fluid: 1ml/kcal or per MD Nutrition Intervention Change Diet Order: Continue TF Nutrition Support: Vital AF at 55 ml/hr Flush 75 ml q4h Kcal 1,584 Protein (gm) 99 Fluid (mL) 1,070 Goal #1 Meet at least 80% of protein and energy needs via TF Anticipated Discharge Needs: Cannot determine at this time Follow-Up By: 07/31/20 Additional Comments Follow for TF Tolerance
[2020-07-24] MEDS: MIDAZOLAM 100 MG in SODIUM CHLORIDE 0.9% 80 ML IV SCH (13:39)
[2020-07-24] MEDS: ACETAMINOPHEN 325 MG TAB PO PRN (14:01)
[2020-07-24] MEDS: INSULIN GLARGINE 100 UNITS/ML SUB-Q SCH (17:59)
[2020-07-25] MEDS: fentaNYL DRIP Premix 2,000 MCG/100 ML BAG IV SCH ×4 (00:39→23:05)
[2020-07-25 04:23] LABS: ABG Base Excess 8.2 mmol/L (-2.0-3.0); ABG Methemoglobin 0.6 % (0.0-1.5); ABG Oxygen Saturation 99.1 % (95.0-99.0); ABG PCO2 54.2 mm Hg; ABG PH 7.416 pH Units (7.350-7.450); ABG PO2 175.9 mm Hg (80.0-90.0)
[2020-07-25] MEDS: INSULIN REGULAR, HUMAN 100 UNIT/ML 3ML VIAL SUB-Q SCH ×3 (05:54→23:48)
[2020-07-25] MEDS: methylPREDNISolone Sod Succinate 40 MG/1 ML INJ IV SCH ×3 (05:54→22:32)
[2020-07-25] MEDS: MIDAZOLAM 100 MG in SODIUM CHLORIDE 0.9% 80 ML IV SCH ×2 (06:50→20:54)
[2020-07-25] MEDS: BUDESONIDE 0.5 MG/2 ML NEBU IH SCH ×2 (09:06→20:23)
[2020-07-25] MEDS: ARFORMOTEROL 15 MCG/2 ML NEBU IH SCH ×2 (09:07→20:23)
[2020-07-25] MEDS: ALBUTEROL 2.5 MG/3 ML NEBU IH SCH ×3 (09:07→20:23)
--- NOTE | 2020-07-25 09:57 | Progress Note ---
Assessment and Plan Acute hypoxemic respiratory failure, now on MVS Bilateral pneumonia, left greater than right lungs. COVID-19 infection. History of congestive heart failure. History of lupus erythematosus. Leukocytosis. Tobacco use disorder. Acute asthma exacerbation. History of hypertension. Obesity - FiO2 weaqned to 75% - RN asked to restrain re: recent self extubation - add neurontin 600 mg TID (Home Med) - increase Seroquel to TID - repeat 12 lead EKG in am re: QT interval - continue care as below otherwise; - repeat COVID-19 test is positive - keep peep at 14 cm H2O - continue slow systemic steroids taper - continue to wean supplemental oxygen for target O2 sat's > 92% - continue low dose SSI - continue Seroquel 300 mg p.o. bid - continue airborne and contact isolation - continue Zinc & Vit C supplementaion - complete Remdesivir - empiric AB's coverage per ID rec's otherwise - continue systemic steroids for Asthma / severe COVID infection - continue Daily SAT and SBT assessment as tolerated - VAP bundle addressed - continue lung protective strategies - continue bronchodilators with pulmonary hygiene per RT - wean per pulmonary driven protocols otherwise - accuchecks with glycemic control per SSI (While critically ill target blood glucose of 140-180 mg/dL; avoid hypoglycemia) - sedation prn for target RASS -1 to -2 - avoid nephrotoxins, renally dose all medications - continue to avoid benzodiazepine's, reduce the possibility of delirium - prn analgesia per CPOT score - Maintenance of sleep-wake cycle, avoid delirium - continue enteral nutritional support at goal rate as tolerated - G.I. & VTE prophylaxis - PT/OT/ROM exercises - continue mobility protocols for pressure ulcer prophylaxis - Monitor hemodynamics closely - continue other care per attending / other consultants - discharge planning ongoing concurrently .... Re-evaluate in am & prn CONDITION: CRITICAL PROGNOSIS: GUARDED CODE STATUS: FULL CODE The high probability of a clinically significant, sudden or life-threatening deterioration of the [respiratory, cardiovascular & neurologic] system(s) required my full and direct attention, intervention and personal management. The aggregate critical care time was [36] minutes without overlap. Time includes spent on; [x] Data Review and interpretation [x] Patient assessment and monitoring of vital signs [x] Documentation [x] Medication orders and management Subjective Date of service: 07/25/20 Principal diagnosis: Ac hypoxemic resp failure; PNA; COVID-19 infxn; SLE; Asthma exacerbation Interval history: Patient is seen today for: Acute hypoxemic respiratory failure; Bilateral pneumonia; COVID-19 infection; H/O CHF; SLE; Acute asthma exacerbation. HTN; Obesity Seen and examined at bedside; 24hour events reviewed; nursing and respiratory care staff consulted; no adverse overnight events reported to me; resting peacefully in bed; remains on MVS; FiO2 increased to 90% overnight due to desaturation event but pO2 175 this am; denies chest pains or palpitations; very anxious Objective Vital Signs - 12hr 07/24/20 07/24/20 07/24/20 22:00 22:30 23:00 Temperature Pulse Rate 66 72 74 Pulse Rate [ Bilateral Throughout] Pulse Rate [ From Monitor] Respiratory 17 13 13 Rate Respiratory Rate [Bilateral Throughout] Respiratory 26 H Rate [Chest] Blood Pressure 94/55 111/54 113/49 O2 Sat by Pulse 96 95 94 Oximetry 07/24/20 07/24/20 07/24/20 23:30 23:46 23:48 Temperature 98.7 F Pulse Rate 76 75 Pulse Rate [ Bilateral Throughout] Pulse Rate [ From Monitor] Respiratory 13 Rate Respiratory Rate [Bilateral Throughout] Respiratory Rate [Chest] Blood Pressure 105/52 113/59 O2 Sat by Pulse 95 94 Oximetry 07/25/20 07/25/20 07/25/20 00:00 00:30 01:00 Temperature 98.7 F Pulse Rate 75 76 73 Pulse Rate [ Bilateral Throughout] Pulse Rate [ 71 From Monitor] Respiratory 14 14 15 Rate Respiratory Rate [Bilateral Throughout] Respiratory Rate [Chest] Blood Pressure 122/56 95/53 103/59 O2 Sat by Pulse 94 93 93 Oximetry 07/25/20 07/25/20 07/25/20 01:30 02:00 02:30 Temperature Pulse Rate 73 67 69 Pulse Rate [ Bilateral Throughout] Pulse Rate [ From Monitor] Respiratory 15 13 16 Rate Respiratory Rate [Bilateral Throughout] Respiratory Rate [Chest] Blood Pressure 111/56 95/59 95/62 O2 Sat by Pulse 95 97 96 Oximetry 07/25/20 07/25/20 07/25/20 03:00 03:30 04:00 Temperature 98.7 F Pulse Rate 69 69 86 Pulse Rate [ Bilateral Throughout] Pulse Rate [ 98 H From Monitor] Respiratory 14 12 18 Rate Respiratory Rate [Bilateral Throughout] Respiratory Rate [Chest] Blood Pressure 92/56 101/59 103/75 O2 Sat by Pulse 95 96 95 Oximetry 07/25/20 07/25/20 07/25/20 04:16 04:30 05:00 Temperature Pulse Rate 87 81 95 H Pulse Rate [ Bilateral Throughout] Pulse Rate [ From Monitor] Respiratory 18 25 H Rate Respiratory Rate [Bilateral Throughout] Respiratory Rate [Chest] Blood Pressure 97/62 112/63 101/50 O2 Sat by Pulse 95 94 95 Oximetry 07/25/20 07/25/20 07/25/20 05:31 06:01 06:30 Temperature Pulse Rate 88 87 83 Pulse Rate [ Bilateral Throughout] Pulse Rate [ From Monitor] Respiratory 19 23 20 Rate Respiratory Rate [Bilateral Throughout] Respiratory Rate [Chest] Blood Pressure 98/30 110/71 122/59 O2 Sat by Pulse 92 93 93 Oximetry 07/25/20 07/25/20 07/25/20 07:00 07:30 08:00 Temperature 98.8 F Pulse Rate 86 87 100 H Pulse Rate [ Bilateral Throughout] Pulse Rate [ From Monitor] Respiratory 21 Rate Respiratory Rate [Bilateral Throughout] Respiratory Rate [Chest] Blood Pressure 114/74 137/89 O2 Sat by Pulse 93 96 Oximetry 07/25/20 07/25/20 07/25/20 08:01 09:04 09:07 Temperature Pulse Rate 90 98 H Pulse Rate [ 95 H Bilateral Throughout] Pulse Rate [ From Monitor] Respiratory Rate Respiratory 31 H Rate [Bilateral Throughout] Respiratory Rate [Chest] Blood Pressure 131/74 157/88 O2 Sat by Pulse 92 93 Oximetry Constitutional: appears uncomfortable, other (middle aged obese female with mildly increased respiratory effort at rest on MVS) Eyes: non-icteric ENT: oropharynx moist, other (ETT 23cm YANET) Neck: supple, no lymphadenopathy, no JVD Effort: mildly labored Ascultation: Bilateral: diminished breath sounds, rhonchi (scant ) Percussion: Bilateral: not dull Cardiovascular: regular rate and rhythm, other (S1,S2) Gastrointestinal: normoactive bowel sounds, soft, non-tender, non-distended Integumentary: normal Extremities: no cyanosis, no edema, pulses normal, no ischemia or petechiae Neurologic: normal mental status, non-focal exam (moves extremities), pupils equal and round Psychiatric: anxious CBC and BMP: 07/23/20 04:00 07/23/20 04:00 ABG, PT/INR, D-dimer: ABG ABG pH 7.416 pH Units (7.350-7.450) 07/25/20 03:53 POC ABG pCO2 46.1 mmHg (32.0-48.0) 07/22/20 03:26 ABG pCO2 54.2 mm Hg 07/25/20 03:53 POC ABG pO2 54.2 mmHg (83-108) L 07/22/20 03:26 ABG pO2 175.9 mm Hg (80.0-90.0) H 07/25/20 03:53 POC ABG HCO3 30.0 07/22/20 03:26 ABG O2 Saturation 99.1 % (95.0-99.0) H 07/25/20 03:53 PT/INR, D-dimer D-Dimer 826.36 ng/mlDDU (0-234) H 07/13/20 07:20 Abnormal lab findings: Abnormal Labs 07/06/20 07/06/20 07/07/20 05:24 17:16 04:50 WBC 13.5 H 12.7 H RBC Hgb Lymph % (Auto) Lymph # (Auto) Seg Neuts % (Manual) 86.0 H 87.0 H Lymphocytes % (Manual) 6.0 L 9.0 L Seg Neutrophils # Seg Neutrophils # Man 11.6 H 11.0 H Lymphocytes # (Manual) 0.8 L 1.1 L D-Dimer ABG pH POC ABG pCO2 POC ABG pO2 ABG pO2 ABG HCO3 ABG O2 Saturation ABG Base Excess ABG Hemoglobin ABG Oxyhemoglobin ABG Sodium ABG Potassium ABG Chloride ABG Glucose Oxyhemoglobin Chloride Carbon Dioxide BUN Creatinine Glucose POC Glucose Calcium Ferritin Lactate Dehydrogenase 242 H C-Reactive Protein 7.30 H Total Protein Albumin Arterial Blood Glucose Arterial Blood Ionized Calcium Coronavirus (PCR) SARS-CoV-2 IgG Ab 07/07/20 07/07/20 07/07/20 04:50 14:22 14:22 WBC RBC Hgb Lymph % (Auto) Lymph # (Auto) Seg Neuts % (Manual) Lymphocytes % (Manual) Seg Neutrophils # Seg Neutrophils # Man Lymphocytes # (Manual) D-Dimer ABG pH POC ABG pCO2 POC ABG pO2 ABG pO2 ABG HCO3 ABG O2 Saturation ABG Base Excess ABG Hemoglobin ABG Oxyhemoglobin ABG Sodium ABG Potassium ABG Chloride ABG Glucose Oxyhemoglobin Chloride Carbon Dioxide BUN 18 H Creatinine Glucose 138 H POC Glucose Calcium Ferritin 228.2 H Lactate Dehydrogenase 277 H C-Reactive Protein Total Protein 5.9 L Albumin 3.4 L Arterial Blood Glucose Arterial Blood Ionized Calcium Coronavirus (PCR) SARS-CoV-2 IgG Ab 07/08/20 07/08/20 07/08/20 11:18 12:57 16:13 WBC RBC Hgb Lymph % (Auto) Lymph # (Auto) Seg Neuts % (Manual) Lymphocytes % (Manual) Seg Neutrophils # Seg Neutrophils # Man Lymphocytes # (Manual) D-Dimer ABG pH POC ABG pCO2 POC ABG pO2 ABG pO2 39.3 L* ABG HCO3 ABG O2 Saturation 76.8 L ABG Base Excess ABG Hemoglobin ABG Oxyhemoglobin ABG Sodium ABG Potassium ABG Chloride ABG Glucose Oxyhemoglobin 75.3 L Chloride Carbon Dioxide 20 L D BUN Creatinine Glucose 135 H POC Glucose 106 H Calcium 8.0 L Ferritin Lactate Dehydrogenase C-Reactive Protein Total Protein Albumin Arterial Blood Glucose Arterial Blood Ionized Calcium Coronavirus (PCR) SARS-CoV-2 IgG Ab 07/08/20 07/08/20 07/09/20 17:04 18:45 04:00 WBC 15.6 H RBC Hgb Lymph % (Auto) 4.7 L Lymph # (Auto) 0.7 L Seg Neuts % (Manual) Lymphocytes % (Manual) Seg Neutrophils # 14.2 H Seg Neutrophils # Man Lymphocytes # (Manual) D-Dimer ABG pH POC ABG pCO2 POC ABG pO2 ABG pO2 181.8 H ABG HCO3 ABG O2 Saturation 99.1 H ABG Base Excess ABG Hemoglobin 11.4 L ABG Oxyhemoglobin ABG Sodium ABG Potassium ABG Chloride ABG Glucose Oxyhemoglobin Chloride Carbon Dioxide BUN Creatinine Glucose POC Glucose 117 H Calcium Ferritin Lactate Dehydrogenase C-Reactive Protein Total Protein Albumin Arterial Blood Glucose Arterial Blood Ionized Calcium Coronavirus (PCR) SARS-CoV-2 IgG Ab 07/09/20 07/09/20 07/09/20 04:00 04:00 04:49 WBC RBC Hgb Lymph % (Auto) Lymph # (Auto) Seg Neuts % (Manual) Lymphocytes % (Manual) Seg Neutrophils # Seg Neutrophils # Man Lymphocytes # (Manual) D-Dimer ABG pH POC ABG pCO2 POC ABG pO2 ABG pO2 ABG HCO3 26.2 H ABG O2 Saturation ABG Base Excess ABG Hemoglobin 11.2 L ABG Oxyhemoglobin ABG Sodium ABG Potassium ABG Chloride ABG Glucose Oxyhemoglobin 94.9 L Chloride Carbon Dioxide BUN Creatinine Glucose 158 H POC Glucose Calcium 8.2 L Ferritin 320.0 H Lactate Dehydrogenase 391 H C-Reactive Protein 9.50 H Total Protein 5.9 L Albumin 3.2 L Arterial Blood Glucose Arterial Blood Ionized Calcium Coronavirus (PCR) SARS-CoV-2 IgG Ab 07/09/20 07/09/20 07/09/20 11:56 17:49 23:39 WBC RBC Hgb Lymph % (Auto) Lymph # (Auto) Seg Neuts % (Manual) Lymphocytes % (Manual) Seg Neutrophils # Seg Neutrophils # Man Lymphocytes # (Manual) D-Dimer ABG pH POC ABG pCO2 POC ABG pO2 ABG pO2 ABG HCO3 ABG O2 Saturation ABG Base Excess ABG Hemoglobin ABG Oxyhemoglobin ABG Sodium ABG Potassium ABG Chloride ABG Glucose Oxyhemoglobin Chloride Carbon Dioxide BUN Creatinine Glucose POC Glucose 156 H 119 H 145 H Calcium Ferritin Lactate Dehydrogenase C-Reactive Protein Total Protein Albumin Arterial Blood Glucose Arterial Blood Ionized Calcium Coronavirus (PCR) SARS-CoV-2 IgG Ab 07/10/20 07/10/20 07/10/20 03:32 05:26 11:22 WBC RBC Hgb Lymph % (Auto) Lymph # (Auto) Seg Neuts % (Manual) Lymphocytes % (Manual) Seg Neutrophils # Seg Neutrophils # Man Lymphocytes # (Manual) D-Dimer ABG pH POC ABG pCO2 POC ABG pO2 ABG pO2 75.7 L ABG HCO3 27.5 H ABG O2 Saturation ABG Base Excess ABG Hemoglobin 9.3 L ABG Oxyhemoglobin ABG Sodium ABG Potassium ABG Chloride ABG Glucose Oxyhemoglobin 94.7 L Chloride Carbon Dioxide BUN Creatinine Glucose POC Glucose 156 H 148 H Calcium Ferritin Lactate Dehydrogenase C-Reactive Protein Total Protein Albumin Arterial Blood Glucose Arterial Blood Ionized Calcium Coronavirus (PCR) SARS-CoV-2 IgG Ab 07/10/20 07/10/20 07/10/20 12:10 12:10 18:20 WBC 14.1 H RBC 3.33 L Hgb 9.9 L Lymph % (Auto) Lymph # (Auto) Seg Neuts % (Manual) 89.0 H Lymphocytes % (Manual) 8.0 L Seg Neutrophils # Seg Neutrophils # Man 12.5 H Lymphocytes # (Manual) 1.1 L D-Dimer ABG pH POC ABG pCO2 POC ABG pO2 ABG pO2 ABG HCO3 ABG O2 Saturation ABG Base Excess ABG Hemoglobin ABG Oxyhemoglobin ABG Sodium ABG Potassium ABG Chloride ABG Glucose Oxyhemoglobin Chloride Carbon Dioxide BUN 21 H Creatinine Glucose 154 H POC Glucose 181 H Calcium 8.0 L Ferritin Lactate Dehydrogenase C-Reactive Protein Total Protein 5.4 L Albumin 3.0 L Arterial Blood Glucose Arterial Blood Ionized Calcium Coronavirus (PCR) SARS-CoV-2 IgG Ab 07/10/20 07/11/20 07/11/20 23:51 04:05 05:43 WBC RBC Hgb Lymph % (Auto) Lymph # (Auto) Seg Neuts % (Manual) Lymphocytes % (Manual) Seg Neutrophils # Seg Neutrophils # Man Lymphocytes # (Manual) D-Dimer ABG pH 7.348 L POC ABG pCO2 POC ABG pO2 ABG pO2 93.6 H ABG HCO3 28.5 H ABG O2 Saturation ABG Base Excess ABG Hemoglobin 10.1 L ABG Oxyhemoglobin ABG Sodium ABG Potassium ABG Chloride ABG Glucose Oxyhemoglobin Chloride Carbon Dioxide BUN Creatinine Glucose POC Glucose 116 H 132 H Calcium Ferritin Lactate Dehydrogenase C-Reactive Protein Total Protein Albumin Arterial Blood Glucose Arterial Blood Ionized Calcium Coronavirus (PCR) SARS-CoV-2 IgG Ab 07/11/20 07/11/20 07/11/20 09:11 09:11 09:11 WBC 15.8 H RBC 3.44 L Hgb Lymph % (Auto) Lymph # (Auto) Seg Neuts % (Manual) 92.0 H Lymphocytes % (Manual) 4.0 L Seg Neutrophils # Seg Neutrophils # Man 14.5 H Lymphocytes # (Manual) 0.6 L D-Dimer 360.61 H ABG pH POC ABG pCO2 POC ABG pO2 ABG pO2 ABG HCO3 ABG O2 Saturation ABG Base Excess ABG Hemoglobin ABG Oxyhemoglobin ABG Sodium ABG Potassium ABG Chloride ABG Glucose Oxyhemoglobin Chloride 107.1 H Carbon Dioxide BUN 22 H Creatinine Glucose 149 H POC Glucose Calcium 7.8 L Ferritin Lactate Dehydrogenase 483 H C-Reactive Protein 2.30 H Total Protein 4.9 L Albumin 3.0 L Arterial Blood Glucose Arterial Blood Ionized Calcium Coronavirus (PCR) SARS-CoV-2 IgG Ab 07/11/20 07/11/20 07/11/20 09:11 12:16 17:55 WBC RBC Hgb Lymph % (Auto) Lymph # (Auto) Seg Neuts % (Manual) Lymphocytes % (Manual) Seg Neutrophils # Seg Neutrophils # Man Lymphocytes # (Manual) D-Dimer ABG pH POC ABG pCO2 POC ABG pO2 ABG pO2 ABG HCO3 ABG O2 Saturation ABG Base Excess ABG Hemoglobin ABG Oxyhemoglobin ABG Sodium ABG Potassium ABG Chloride ABG Glucose Oxyhemoglobin Chloride Carbon Dioxide BUN Creatinine Glucose POC Glucose 157 H 166 H Calcium Ferritin 371.2 H Lactate Dehydrogenase C-Reactive Protein Total Protein Albumin Arterial Blood Glucose Arterial Blood Ionized Calcium Coronavirus (PCR) SARS-CoV-2 IgG Ab 07/12/20 07/12/20 07/12/20 00:32 04:00 04:00 WBC RBC 3.52 L Hgb Lymph % (Auto) Lymph # (Auto) Seg Neuts % (Manual) 90.0 H Lymphocytes % (Manual) 4.0 L Seg Neutrophils # Seg Neutrophils # Man 9.5 H Lymphocytes # (Manual) 0.4 L D-Dimer ABG pH POC ABG pCO2 POC ABG pO2 ABG pO2 ABG HCO3 ABG O2 Saturation ABG Base Excess ABG Hemoglobin ABG Oxyhemoglobin ABG Sodium ABG Potassium ABG Chloride ABG Glucose Oxyhemoglobin Chloride Carbon Dioxide 31 H BUN 21 H Creatinine Glucose 175 H POC Glucose 178 H Calcium 8.0 L Ferritin Lactate Dehydrogenase C-Reactive Protein Total Protein 5.4 L Albumin 3.0 L Arterial Blood Glucose Arterial Blood Ionized Calcium Coronavirus (PCR) SARS-CoV-2 IgG Ab 07/12/20 07/12/20 07/12/20 04:01 05:47 12:09 WBC RBC Hgb Lymph % (Auto) Lymph # (Auto) Seg Neuts % (Manual) Lymphocytes % (Manual) Seg Neutrophils # Seg Neutrophils # Man Lymphocytes # (Manual) D-Dimer ABG pH 7.456 H POC ABG pCO2 POC ABG pO2 ABG pO2 ABG HCO3 ABG O2 Saturation ABG Base Excess ABG Hemoglobin 10.6 L ABG Oxyhemoglobin ABG Sodium ABG Potassium ABG Chloride ABG Glucose 177 H Oxyhemoglobin Chloride Carbon Dioxide BUN Creatinine Glucose POC Glucose 185 H 227 H Calcium Ferritin Lactate Dehydrogenase C-Reactive Protein Total Protein Albumin Arterial Blood Glucose 177 H Arterial Blood Ionized Calcium 4.5 L Coronavirus (PCR) SARS-CoV-2 IgG Ab 07/12/20 07/12/20 07/13/20 17:34 23:57 05:06 WBC RBC Hgb Lymph % (Auto) Lymph # (Auto) Seg Neuts % (Manual) Lymphocytes % (Manual) Seg Neutrophils # Seg Neutrophils # Man Lymphocytes # (Manual) D-Dimer ABG pH POC ABG pCO2 POC ABG pO2 ABG pO2 ABG HCO3 ABG O2 Saturation ABG Base Excess ABG Hemoglobin ABG Oxyhemoglobin ABG Sodium ABG Potassium ABG Chloride ABG Glucose Oxyhemoglobin Chloride Carbon Dioxide BUN Creatinine Glucose POC Glucose 202 H 163 H 166 H Calcium Ferritin Lactate Dehydrogenase C-Reactive Protein Total Protein Albumin Arterial Blood Glucose Arterial Blood Ionized Calcium Coronavirus (PCR) SARS-CoV-2 IgG Ab 07/13/20 07/13/20 07/13/20 07:20 07:20 07:20 WBC 20.5 H RBC Hgb Lymph % (Auto) Lymph # (Auto) Seg Neuts % (Manual) 93.0 H Lymphocytes % (Manual) 3.0 L Seg Neutrophils # Seg Neutrophils # Man 19.1 H Lymphocytes # (Manual) 0.6 L D-Dimer 826.36 H ABG pH POC ABG pCO2 POC ABG pO2 ABG pO2 ABG HCO3 ABG O2 Saturation ABG Base Excess ABG Hemoglobin ABG Oxyhemoglobin ABG Sodium ABG Potassium ABG Chloride ABG Glucose Oxyhemoglobin Chloride Carbon Dioxide 31 H BUN 25 H Creatinine Glucose 163 H POC Glucose Calcium 8.1 L Ferritin Lactate Dehydrogenase 512 H C-Reactive Protein 1.80 H Total Protein 5.8 L Albumin 3.2 L Arterial Blood Glucose Arterial Blood Ionized Calcium Coronavirus (PCR) SARS-CoV-2 IgG Ab 07/13/20 07/13/20 07/13/20 07:20 11:37 17:20 WBC RBC Hgb Lymph % (Auto) Lymph # (Auto) Seg Neuts % (Manual) Lymphocytes % (Manual) Seg Neutrophils # Seg Neutrophils # Man Lymphocytes # (Manual) D-Dimer ABG pH POC ABG pCO2 POC ABG pO2 ABG pO2 ABG HCO3 ABG O2 Saturation ABG Base Excess ABG Hemoglobin ABG Oxyhemoglobin ABG Sodium ABG Potassium ABG Chloride ABG Glucose Oxyhemoglobin Chloride Carbon Dioxide BUN Creatinine Glucose POC Glucose 232 H 210 H Calcium Ferritin 219.8 H Lactate Dehydrogenase C-Reactive Protein Total Protein Albumin Arterial Blood Glucose Arterial Blood Ionized Calcium Coronavirus (PCR) SARS-CoV-2 IgG Ab 07/13/20 07/13/20 07/14/20 23:57 Unknown 05:22 WBC RBC Hgb Lymph % (Auto) Lymph # (Auto) Seg Neuts % (Manual) Lymphocytes % (Manual) Seg Neutrophils # Seg Neutrophils # Man Lymphocytes # (Manual) D-Dimer ABG pH 7.341 L POC ABG pCO2 POC ABG pO2 133.0 H ABG pO2 56.5 L ABG HCO3 29.7 H ABG O2 Saturation 89.3 L ABG Base Excess ABG Hemoglobin 11.0 L ABG Oxyhemoglobin ABG Sodium ABG Potassium ABG Chloride ABG Glucose 207 H Oxyhemoglobin 87.7 L Chloride Carbon Dioxide BUN Creatinine Glucose POC Glucose 190 H Calcium Ferritin Lactate Dehydrogenase C-Reactive Protein Total Protein Albumin Arterial Blood Glucose 207 H Arterial Blood Ionized Calcium 4.5 L Coronavirus (PCR) SARS-CoV-2 IgG Ab 07/14/20 07/14/20 07/14/20 05:54 11:16 17:50 WBC RBC Hgb Lymph % (Auto) Lymph # (Auto) Seg Neuts % (Manual) Lymphocytes % (Manual) Seg Neutrophils # Seg Neutrophils # Man Lymphocytes # (Manual) D-Dimer ABG pH POC ABG pCO2 POC ABG pO2 ABG pO2 ABG HCO3 ABG O2 Saturation ABG Base Excess ABG Hemoglobin ABG Oxyhemoglobin ABG Sodium ABG Potassium ABG Chloride ABG Glucose Oxyhemoglobin Chloride Carbon Dioxide BUN Creatinine Glucose POC Glucose 206 H 196 H 205 H Calcium Ferritin Lactate Dehydrogenase C-Reactive Protein Total Protein Albumin Arterial Blood Glucose Arterial Blood Ionized Calcium Coronavirus (PCR) SARS-CoV-2 IgG Ab 07/14/20 07/15/20 07/15/20 23:28 03:16 06:12 WBC RBC Hgb Lymph % (Auto) Lymph # (Auto) Seg Neuts % (Manual) Lymphocytes % (Manual) Seg Neutrophils # Seg Neutrophils # Man Lymphocytes # (Manual) D-Dimer ABG pH POC ABG pCO2 49.2 H POC ABG pO2 120.3 H ABG pO2 ABG HCO3 ABG O2 Saturation ABG Base Excess ABG Hemoglobin 9.5 L ABG Oxyhemoglobin ABG Sodium ABG Potassium ABG Chloride ABG Glucose 148 H Oxyhemoglobin Chloride Carbon Dioxide BUN Creatinine Glucose POC Glucose 160 H 178 H Calcium Ferritin Lactate Dehydrogenase C-Reactive Protein Total Protein Albumin Arterial Blood Glucose 148 H Arterial Blood Ionized Calcium Coronavirus (PCR) SARS-CoV-2 IgG Ab 07/15/20 07/15/20 07/15/20 09:00 12:32 14:30 WBC RBC Hgb Lymph % (Auto) Lymph # (Auto) Seg Neuts % (Manual) Lymphocytes % (Manual) Seg Neutrophils # Seg Neutrophils # Man Lymphocytes # (Manual) D-Dimer ABG pH POC ABG pCO2 POC ABG pO2 ABG pO2 ABG HCO3 ABG O2 Saturation ABG Base Excess ABG Hemoglobin ABG Oxyhemoglobin ABG Sodium ABG Potassium ABG Chloride ABG Glucose Oxyhemoglobin Chloride Carbon Dioxide BUN Creatinine Glucose POC Glucose 173 H Calcium Ferritin Lactate Dehydrogenase 531 H C-Reactive Protein Total Protein Albumin Arterial Blood Glucose Arterial Blood Ionized Calcium Coronavirus (PCR) SARS-CoV-2 IgG Ab Reactive A 07/15/20 07/15/20 07/16/20 18:24 23:35 04:03 WBC RBC Hgb Lymph % (Auto) Lymph # (Auto) Seg Neuts % (Manual) Lymphocytes % (Manual) Seg Neutrophils # Seg Neutrophils # Man Lymphocytes # (Manual) D-Dimer ABG pH POC ABG pCO2 POC ABG pO2 ABG pO2 72.7 L ABG HCO3 35.5 H ABG O2 Saturation ABG Base Excess 9.4 H ABG Hemoglobin 10.6 L ABG Oxyhemoglobin ABG Sodium ABG Potassium ABG Chloride ABG Glucose Oxyhemoglobin 93.6 L Chloride Carbon Dioxide BUN Creatinine Glucose POC Glucose 173 H 181 H Calcium Ferritin Lactate Dehydrogenase C-Reactive Protein Total Protein Albumin Arterial Blood Glucose Arterial Blood Ionized Calcium Coronavirus (PCR) SARS-CoV-2 IgG Ab 07/16/20 07/16/20 07/16/20 05:35 09:00 09:00 WBC 16.5 H RBC 3.59 L Hgb Lymph % (Auto) Lymph # (Auto) Seg Neuts % (Manual) 96.0 H Lymphocytes % (Manual) 3.0 L Seg Neutrophils # Seg Neutrophils # Man 15.8 H Lymphocytes # (Manual) 0.5 L D-Dimer ABG pH POC ABG pCO2 POC ABG pO2 ABG pO2 ABG HCO3 ABG O2 Saturation ABG Base Excess ABG Hemoglobin ABG Oxyhemoglobin ABG Sodium ABG Potassium ABG Chloride ABG Glucose Oxyhemoglobin Chloride Carbon Dioxide 39 H D BUN 25 H Creatinine 0.4 L Glucose 167 H POC Glucose 129 H Calcium 8.3 L Ferritin Lactate Dehydrogenase C-Reactive Protein Total Protein Albumin Arterial Blood Glucose Arterial Blood Ionized Calcium Coronavirus (PCR) SARS-CoV-2 IgG Ab 07/16/20 07/16/20 07/17/20 12:32 18:28 00:09 WBC RBC Hgb Lymph % (Auto) Lymph # (Auto) Seg Neuts % (Manual) Lymphocytes % (Manual) Seg Neutrophils # Seg Neutrophils # Man Lymphocytes # (Manual) D-Dimer ABG pH POC ABG pCO2 POC ABG pO2 ABG pO2 ABG HCO3 ABG O2 Saturation ABG Base Excess ABG Hemoglobin ABG Oxyhemoglobin ABG Sodium ABG Potassium ABG Chloride ABG Glucose Oxyhemoglobin Chloride Carbon Dioxide BUN Creatinine Glucose POC Glucose 187 H 174 H 184 H Calcium Ferritin Lactate Dehydrogenase C-Reactive Protein Total Protein Albumin Arterial Blood Glucose Arterial Blood Ionized Calcium Coronavirus (PCR) SARS-CoV-2 IgG Ab 07/17/20 07/17/20 07/17/20 04:30 05:47 13:03 WBC RBC Hgb Lymph % (Auto) Lymph # (Auto) Seg Neuts % (Manual) Lymphocytes % (Manual) Seg Neutrophils # Seg Neutrophils # Man Lymphocytes # (Manual) D-Dimer ABG pH POC ABG pCO2 POC ABG pO2 ABG pO2 ABG HCO3 38.1 H ABG O2 Saturation ABG Base Excess 11.3 H ABG Hemoglobin 10.5 L ABG Oxyhemoglobin ABG Sodium ABG Potassium ABG Chloride ABG Glucose Oxyhemoglobin Chloride Carbon Dioxide BUN Creatinine Glucose POC Glucose 135 H 210 H Calcium Ferritin Lactate Dehydrogenase C-Reactive Protein Total Protein Albumin Arterial Blood Glucose Arterial Blood Ionized Calcium Coronavirus (PCR) SARS-CoV-2 IgG Ab 07/17/20 07/17/20 07/18/20 16:50 23:39 04:01 WBC RBC Hgb Lymph % (Auto) Lymph # (Auto) Seg Neuts % (Manual) Lymphocytes % (Manual) Seg Neutrophils # Seg Neutrophils # Man Lymphocytes # (Manual) D-Dimer ABG pH POC ABG pCO2 56.8 H POC ABG pO2 61.9 L ABG pO2 ABG HCO3 ABG O2 Saturation ABG Base Excess ABG Hemoglobin 11.7 L ABG Oxyhemoglobin ABG Sodium 134.2 L ABG Potassium 4.7 H ABG Chloride 97.0 L ABG Glucose 173 H Oxyhemoglobin Chloride Carbon Dioxide BUN Creatinine Glucose POC Glucose 193 H 163 H Calcium Ferritin Lactate Dehydrogenase C-Reactive Protein Total Protein Albumin Arterial Blood Glucose 173 H Arterial Blood Ionized Calcium Coronavirus (PCR) SARS-CoV-2 IgG Ab 07/18/20 07/18/20 07/18/20 05:41 12:03 17:26 WBC RBC Hgb Lymph % (Auto) Lymph # (Auto) Seg Neuts % (Manual) Lymphocytes % (Manual) Seg Neutrophils # Seg Neutrophils # Man Lymphocytes # (Manual) D-Dimer ABG pH POC ABG pCO2 POC ABG pO2 ABG pO2 ABG HCO3 ABG O2 Saturation ABG Base Excess ABG Hemoglobin ABG Oxyhemoglobin ABG Sodium ABG Potassium ABG Chloride ABG Glucose Oxyhemoglobin Chloride Carbon Dioxide BUN Creatinine Glucose POC Glucose 153 H 177 H 160 H Calcium Ferritin Lactate Dehydrogenase C-Reactive Protein Total Protein Albumin Arterial Blood Glucose Arterial Blood Ionized Calcium Coronavirus (PCR) SARS-CoV-2 IgG Ab 07/18/20 07/19/20 07/19/20 23:58 04:15 05:05 WBC RBC Hgb Lymph % (Auto) Lymph # (Auto) Seg Neuts % (Manual) Lymphocytes % (Manual) Seg Neutrophils # Seg Neutrophils # Man Lymphocytes # (Manual) D-Dimer ABG pH 7.465 H POC ABG pCO2 49.1 H POC ABG pO2 49.4 L ABG pO2 ABG HCO3 ABG O2 Saturation ABG Base Excess ABG Hemoglobin 11.6 L ABG Oxyhemoglobin ABG Sodium 132.3 L ABG Potassium ABG Chloride 97.0 L ABG Glucose 148 H Oxyhemoglobin Chloride Carbon Dioxide BUN Creatinine Glucose POC Glucose 144 H 117 H Calcium Ferritin Lactate Dehydrogenase C-Reactive Protein Total Protein Albumin Arterial Blood Glucose 148 H Arterial Blood Ionized Calcium Coronavirus (PCR) SARS-CoV-2 IgG Ab 07/19/20 07/19/20 07/19/20 08:30 08:30 13:21 WBC 17.2 H RBC 3.59 L Hgb Lymph % (Auto) Lymph # (Auto) Seg Neuts % (Manual) Lymphocytes % (Manual) Seg Neutrophils # Seg Neutrophils # Man Lymphocytes # (Manual) D-Dimer ABG pH POC ABG pCO2 POC ABG pO2 ABG pO2 ABG HCO3 ABG O2 Saturation ABG Base Excess ABG Hemoglobin ABG Oxyhemoglobin ABG Sodium ABG Potassium ABG Chloride ABG Glucose Oxyhemoglobin Chloride 95.7 L Carbon Dioxide 37 H BUN 20 H Creatinine 0.4 L Glucose 125 H POC Glucose 137 H Calcium 8.1 L Ferritin Lactate Dehydrogenase C-Reactive Protein Total Protein Albumin Arterial Blood Glucose Arterial Blood Ionized Calcium Coronavirus (PCR) SARS-CoV-2 IgG Ab 07/19/20 07/19/20 07/20/20 16:29 17:28 00:25 WBC RBC Hgb Lymph % (Auto) Lymph # (Auto) Seg Neuts % (Manual) Lymphocytes % (Manual) Seg Neutrophils # Seg Neutrophils # Man Lymphocytes # (Manual) D-Dimer ABG pH POC ABG pCO2 53.4 H POC ABG pO2 71.0 L ABG pO2 ABG HCO3 ABG O2 Saturation ABG Base Excess ABG Hemoglobin 11.2 L ABG Oxyhemoglobin 93.6 L ABG Sodium 130.9 L ABG Potassium ABG Chloride 95.0 L ABG Glucose 188 H Oxyhemoglobin Chloride Carbon Dioxide BUN Creatinine Glucose POC Glucose 174 H 188 H Calcium Ferritin Lactate Dehydrogenase C-Reactive Protein Total Protein Albumin Arterial Blood Glucose 188 H Arterial Blood Ionized Calcium 4.4 L Coronavirus (PCR) SARS-CoV-2 IgG Ab 07/20/20 07/20/20 07/20/20 04:14 05:23 12:12 WBC RBC Hgb Lymph % (Auto) Lymph # (Auto) Seg Neuts % (Manual) Lymphocytes % (Manual) Seg Neutrophils # Seg Neutrophils # Man Lymphocytes # (Manual) D-Dimer ABG pH POC ABG pCO2 52.7 H POC ABG pO2 59.5 L ABG pO2 ABG HCO3 ABG O2 Saturation ABG Base Excess ABG Hemoglobin 10.6 L ABG Oxyhemoglobin ABG Sodium 134.4 L ABG Potassium ABG Chloride ABG Glucose 176 H Oxyhemoglobin Chloride Carbon Dioxide BUN Creatinine Glucose POC Glucose 212 H 190 H Calcium Ferritin Lactate Dehydrogenase C-Reactive Protein Total Protein Albumin Arterial Blood Glucose 176 H Arterial Blood Ionized Calcium 4.5 L Coronavirus (PCR) SARS-CoV-2 IgG Ab 07/20/20 07/21/20 07/21/20 16:59 00:01 04:30 WBC RBC Hgb Lymph % (Auto) Lymph # (Auto) Seg Neuts % (Manual) Lymphocytes % (Manual) Seg Neutrophils # Seg Neutrophils # Man Lymphocytes # (Manual) D-Dimer ABG pH 7.468 H POC ABG pCO2 POC ABG pO2 63.3 L ABG pO2 ABG HCO3 ABG O2 Saturation ABG Base Excess ABG Hemoglobin 11 L ABG Oxyhemoglobin ABG Sodium 135.0 L ABG Potassium ABG Chloride ABG Glucose 204 H Oxyhemoglobin Chloride Carbon Dioxide BUN Creatinine Glucose POC Glucose 201 H 177 H Calcium Ferritin Lactate Dehydrogenase C-Reactive Protein Total Protein Albumin Arterial Blood Glucose 204 H Arterial Blood Ionized Calcium 4.5 L Coronavirus (PCR) SARS-CoV-2 IgG Ab 07/21/20 07/21/20 07/21/20 05:26 11:50 17:16 WBC RBC Hgb Lymph % (Auto) Lymph # (Auto) Seg Neuts % (Manual) Lymphocytes % (Manual) Seg Neutrophils # Seg Neutrophils # Man Lymphocytes # (Manual) D-Dimer ABG pH POC ABG pCO2 POC ABG pO2 ABG pO2 ABG HCO3 ABG O2 Saturation ABG Base Excess ABG Hemoglobin ABG Oxyhemoglobin ABG Sodium ABG Potassium ABG Chloride ABG Glucose Oxyhemoglobin Chloride Carbon Dioxide BUN Creatinine Glucose POC Glucose 175 H 157 H 148 H Calcium Ferritin Lactate Dehydrogenase C-Reactive Protein Total Protein Albumin Arterial Blood Glucose Arterial Blood Ionized Calcium Coronavirus (PCR) SARS-CoV-2 IgG Ab 07/22/20 07/22/20 07/22/20 00:01 03:26 05:16 WBC RBC Hgb Lymph % (Auto) Lymph # (Auto) Seg Neuts % (Manual) Lymphocytes % (Manual) Seg Neutrophils # Seg Neutrophils # Man Lymphocytes # (Manual) D-Dimer ABG pH POC ABG pCO2 POC ABG pO2 54.2 L ABG pO2 ABG HCO3 ABG O2 Saturation ABG Base Excess ABG Hemoglobin 10.9 L ABG Oxyhemoglobin ABG Sodium 133.7 L ABG Potassium ABG Chloride ABG Glucose 217 H Oxyhemoglobin Chloride Carbon Dioxide BUN Creatinine Glucose POC Glucose 172 H 182 H Calcium Ferritin Lactate Dehydrogenase C-Reactive Protein Total Protein Albumin Arterial Blood Glucose 217 H Arterial Blood Ionized Calcium 4.5 L Coronavirus (PCR) SARS-CoV-2 IgG Ab 07/22/20 07/22/20 07/23/20 11:43 17:08 04:00 WBC 11.6 H RBC 3.54 L Hgb Lymph % (Auto) Lymph # (Auto) Seg Neuts % (Manual) 94.0 H Lymphocytes % (Manual) 5.0 L Seg Neutrophils # Seg Neutrophils # Man 10.9 H Lymphocytes # (Manual) 0.6 L D-Dimer ABG pH POC ABG pCO2 POC ABG pO2 ABG pO2 ABG HCO3 ABG O2 Saturation ABG Base Excess ABG Hemoglobin ABG Oxyhemoglobin ABG Sodium ABG Potassium ABG Chloride ABG Glucose Oxyhemoglobin Chloride Carbon Dioxide BUN Creatinine Glucose POC Glucose 159 H 163 H Calcium Ferritin Lactate Dehydrogenase C-Reactive Protein Total Protein Albumin Arterial Blood Glucose Arterial Blood Ionized Calcium Coronavirus (PCR) SARS-CoV-2 IgG Ab 07/23/20 07/23/20 07/23/20 04:00 04:53 04:54 WBC RBC Hgb Lymph % (Auto) Lymph # (Auto) Seg Neuts % (Manual) Lymphocytes % (Manual) Seg Neutrophils # Seg Neutrophils # Man Lymphocytes # (Manual) D-Dimer ABG pH 7.453 H POC ABG pCO2 POC ABG pO2 ABG pO2 ABG HCO3 32.4 H ABG O2 Saturation ABG Base Excess 7.5 H ABG Hemoglobin 10.7 L ABG Oxyhemoglobin ABG Sodium ABG Potassium ABG Chloride ABG Glucose Oxyhemoglobin Chloride Carbon Dioxide 35 H BUN Creatinine 0.4 L Glucose 112 H POC Glucose 169 H Calcium 8.2 L Ferritin Lactate Dehydrogenase C-Reactive Protein Total Protein Albumin Arterial Blood Glucose Arterial Blood Ionized Calcium Coronavirus (PCR) SARS-CoV-2 IgG Ab 07/23/20 07/23/20 07/23/20 11:50 23:19 Unknown WBC RBC Hgb Lymph % (Auto) Lymph # (Auto) Seg Neuts % (Manual) Lymphocytes % (Manual) Seg Neutrophils # Seg Neutrophils # Man Lymphocytes # (Manual) D-Dimer ABG pH POC ABG pCO2 POC ABG pO2 ABG pO2 ABG HCO3 ABG O2 Saturation ABG Base Excess ABG Hemoglobin ABG Oxyhemoglobin ABG Sodium ABG Potassium ABG Chloride ABG Glucose Oxyhemoglobin Chloride Carbon Dioxide BUN Creatinine Glucose POC Glucose 118 H 168 H Calcium Ferritin Lactate Dehydrogenase C-Reactive Protein Total Protein Albumin Arterial Blood Glucose Arterial Blood Ionized Calcium Coronavirus (PCR) Positive A SARS-CoV-2 IgG Ab 07/24/20 07/24/20 07/24/20 04:11 05:37 11:42 WBC RBC Hgb Lymph % (Auto) Lymph # (Auto) Seg Neuts % (Manual) Lymphocytes % (Manual) Seg Neutrophils # Seg Neutrophils # Man Lymphocytes # (Manual) D-Dimer ABG pH POC ABG pCO2 POC ABG pO2 ABG pO2 54.4 L ABG HCO3 34.3 H ABG O2 Saturation 89.0 L ABG Base Excess 8.5 H ABG Hemoglobin 11.0 L ABG Oxyhemoglobin ABG Sodium ABG Potassium ABG Chloride ABG Glucose Oxyhemoglobin 87.0 L Chloride Carbon Dioxide BUN Creatinine Glucose POC Glucose 115 H 166 H Calcium Ferritin Lactate Dehydrogenase C-Reactive Protein Total Protein Albumin Arterial Blood Glucose Arterial Blood Ionized Calcium Coronavirus (PCR) SARS-CoV-2 IgG Ab 07/24/20 07/24/20 07/25/20 17:39 23:38 03:53 WBC RBC Hgb Lymph % (Auto) Lymph # (Auto) Seg Neuts % (Manual) Lymphocytes % (Manual) Seg Neutrophils # Seg Neutrophils # Man Lymphocytes # (Manual) D-Dimer ABG pH POC ABG pCO2 POC ABG pO2 ABG pO2 175.9 H ABG HCO3 34.0 H ABG O2 Saturation 99.1 H ABG Base Excess 8.2 H ABG Hemoglobin 10.6 L ABG Oxyhemoglobin ABG Sodium ABG Potassium ABG Chloride ABG Glucose Oxyhemoglobin Chloride Carbon Dioxide BUN Creatinine Glucose POC Glucose 150 H 139 H Calcium Ferritin Lactate Dehydrogenase C-Reactive Protein Total Protein Albumin Arterial Blood Glucose Arterial Blood Ionized Calcium Coronavirus (PCR) SARS-CoV-2 IgG Ab 07/25/20 05:47 WBC RBC Hgb Lymph % (Auto) Lymph # (Auto) Seg Neuts % (Manual) Lymphocytes % (Manual) Seg Neutrophils # Seg Neutrophils # Man Lymphocytes # (Manual) D-Dimer ABG pH POC ABG pCO2 POC ABG pO2 ABG pO2 ABG HCO3 ABG O2 Saturation ABG Base Excess ABG Hemoglobin ABG Oxyhemoglobin ABG Sodium ABG Potassium ABG Chloride ABG Glucose Oxyhemoglobin Chloride Carbon Dioxide BUN Creatinine Glucose POC Glucose 144 H Calcium Ferritin Lactate Dehydrogenase C-Reactive Protein Total Protein Albumin Arterial Blood Glucose Arterial Blood Ionized Calcium Coronavirus (PCR) SARS-CoV-2 IgG Ab Allied health notes reviewed: nursing
[2020-07-25] MEDS: QUEtiapine 100 MG TAB PO SCH ×2 (11:34→22:33)
[2020-07-25] MEDS: ZINC SULFATE 220 MG CAP PO SCH ×2 (11:36→22:34)
[2020-07-25] MEDS: LANSOPRAZOLE 30 MG SOLUTAB FEEDTUBE SCH (11:36)
[2020-07-25] MEDS: ASPIRIN 81 MG TAB CHEW PO SCH (11:37)
[2020-07-25] MEDS: VENLAFAXINE 37.5 MG TAB PO SCH (11:37)
[2020-07-25] MEDS: DOCUSATE SODIUM 100 MG/10 ML ORAL LIQD PO SCH ×2 (11:37→22:32)
[2020-07-25] MEDS: HYDROXYCHLOROQUINE 200 MG TAB PO SCH (11:37)
[2020-07-25] MEDS: ASCORBIC ACID 500 MG TAB PO SCH ×2 (11:37→22:33)
[2020-07-25] MEDS: ENOXAPARIN 30 MG/0.3 ML INJ SUB-Q SCH ×2 (11:38→22:31)
--- NOTE | 2020-07-25 11:46 | Progress Note ---
Assessment and Plan Assessment and plan: --Acute asthma exacerbation on iv steroid Oxygen supplementation as needed Continue montelukast Monitor oxygen saturations closely -- COVID-19 Tested positive for COVID-19 in [place] iv steroid, s/p Remdesivir for 5 days s/p convalescent plasma transfusion Procalcitonin <0.05, ID on board follow ferritin, ldh, d-dimer levels -- Acute hypoxic respiratory failure Now intubated on 07/09/20 overnight From COVID-19 and asthma exacerbation Continue steroids Continue oxygen supplementation -- GERD (gastroesophageal reflux disease) cont Pantoprazole --SLE (systemic lupus erythematosus related syndrome) Continue home medications-hydroxychloroquine -- DVT prophylaxis Lovenox 30 mg twice daily -- Full code status brief History: 50-year-old female with a past medical history of asthma, hypertension, and lupus complains of generalized body weakness, fever and shortness of breath. Patient states the symptoms started right after she was discharged from [place] on 07/05. She has associated wheezing, fever, cough and she has been using her inhalers with no significant effect. She also has associated diarrhea. Of note, she was hospitalized here in [facility] on 06/28 for asthma exacerbation and had a negative Covid test during the admission. She was treated and discharged. She presented to [place] for further evaluation after discharge from here and over there, she was found to have positive COVID-19 test and she was placed on steroids and subsequently discharged on Eliquis prophylaxis for DVT. She states that she did not receive remdesivir during the admission. She was discharged from [place] on 07/05. She went home and felt worse. She said that she passed out about 2 times. Due to persistent symptoms, she called EMS who brought her to [facility] for further evaluation. Daily course: 07/07. Patient seen and examined at bedside this morning. Patient is wheezing and slightly short of breath. Change steroids to Solu-Medrol 60 every 6. Added formoterol and budesonide. ID evaluation pending. Started patient on remdesivir as she is short of breath. 07/07: Placed on BIPAP this AM. Will need pulm evaluation. Solumedrol 60mg q6. STAT blood gas ordered. She will be transferred to [facility]. 07/08: Patient took oxygen off and attempts to go to the bathroom and subsequently became hypoxemic with sats down into the low 80s. Patient became weak short of breath. After that time patient had persistent coughing and cannot maintain sats until nonrebreather was placed. Patient is transferred to the ICU unit and monitored for respiratory failure possibly requiring intubation. 07/09: ID recommended for convalescent plasma, ordered. Patient intubated overnight. Continue to monitor clinically, scheduled lab, follow inflammatory markers 07/10: Wait for convalescent plasma transfusion, wean off from ventilator as tolerated 07/11: Called patient's daughter and updated. Continue to wean off vent as tolerated, continue tube feeding, monitor vital sign CBC BMP daily. 07/12: remains intubated and sedated. follow inflammatory markers - wean off vent as tolerated 07/13: wean off vent as tolerated, cxr in the am. reviewed vitals 07/14: remains intubated, has not received convalescent plasma yet. Reviewed vitals, tolerating tube feeding. Wean off vent per critical care as tolerated. 07/15: cont to provide supportive care, wean off vent as tolerated - difficult to wean off. 07/16: CXR findings improving, cont to wean off vent 07/17: Follow inflammatory markers, monitor off antibiotics. Wean off vent per pulmonary as tolerated 07/18: Wean off vent per pulmonary as tolerated,Follow inflammatory markers, monitor off antibiotics. 07/19: Wean off vent per pulmonary as tolerated,Follow inflammatory markers, monitor off antibiotics. SBT trial 07/20: Wean off vent as tolerated, continue supportive care, follow inflammatory markers 07/21: continue supportive care, follow inflammatory markers, wean off vent as tolerated 07/22: Continue to wean off from ventilator as tolerated per pulmonary recommendation, follow inflammatory markers. Repeat CBC BMP in the morning. We will repeat Covid test tomorrow to see if patient cleared the infection. 07/23. Continue to wean off from ventilator as tolerated per pulmonary recommen dation, follow inflammatory markers. Currently AC mode, rate 16, tidal volume 450 with FiO2 75%vand PEEP 14 07/24/2020. Continue ventilatory support with AC mode, rate 16, tidal volume 450, FiO2 100% and PEEP of 16. Continue Brovana and Pulmicort. Continue IV steroids 40 mg IV every 8 hours. Anticoagulation with Lovenox 30 mg twice daily. Patient currently sedated with Versed and fentanyl. 07/25/2020. Continue ventilatory support with AC mode, rate 16, tidal volume 450, FiO2 75% and PEEP of 16. Continue Brovana and Pulmicort. Continue IV steroids 40 mg IV every 8 hours. Anticoagulation with Lovenox 30 mg twice daily. Patient currently sedated with Versed and fentanyl. Continue to wean per pulmonary recommendations. The high probability of a clinically significant, sudden or life threatening deterioration of the [[employer], respiratory, [employer]] system(s) required my full and direct attention, intervention and personal management. The aggregate critical care time was [32] minutes. This time is in addition to time spent performing reported procedures but includes the following: [x] Data Review and interpretation [x] Patient assessment and monitoring of vital signs [x] Documentation [x] Medication orders and management History Interval history: No new issues Hospitalist Physical - Constitutional Vitals: Temp Pulse Resp BP Pulse Ox 98.8 F 95 H 31 H 157/88 93 07/25/20 08:00 07/25/20 09:07 07/25/20 09:07 07/25/20 09:04 07/25/20 09:04 General appearance: Present: no acute distress, well-nourished - EENT Eyes: Present: PERRL, EOM intact ENT: hearing intact, clear oral mucosa, dentition normal - Neck Neck: Present: supple, normal ROM - Respiratory Respiratory effort: normal Respiratory: bilateral: CTA - Cardiovascular Rhythm: regular Heart Sounds: Present: S1 & S2. Absent: gallop, rub - Extremities Extremities: no ischemia, No edema, Full ROM - Abdominal General gastrointestinal: soft, non-tender, non-distended, normal bowel sounds - Integumentary Integumentary: Present: clear, warm, dry - Neurologic Neurologic: CNII-XII intact, moves all extremities Results - Labs CBC & Chem 7: 07/23/20 04:00 07/23/20 04:00 Labs: Laboratory Last Values WBC 11.6 K/mm3 (4.5-11.0) H 07/23/20 04:00 RBC 3.54 M/mm3 (3.65-5.03) L 07/23/20 04:00 Hgb 10.7 gm/dl (10.1-14.3) 07/23/20 04:00 Hct 32.1 % (30.3-42.9) 07/23/20 04:00 MCV 91 fl (79-97) 07/23/20 04:00 MCH 30 pg (28-32) 07/23/20 04:00 MCHC 33 % (30-34) 07/23/20 04:00 RDW 15.0 % (13.2-15.2) 07/23/20 04:00 Plt Count 201 K/mm3 (140-440) 07/23/20 04:00 Lymph % (Auto) 4.7 % (13.4-35.0) L 07/09/20 04:00 [place] % (Auto) 4.0 % (0.0-7.3) 07/09/20 04:00 Eos % (Auto) 0.0 % (0.0-4.3) 07/09/20 04:00 Baso % (Auto) 0.1 % (0.0-1.8) 07/09/20 04:00 Lymph # (Auto) 0.7 K/mm3 (1.2-5.4) L 07/09/20 04:00 [place] # (Auto) 0.6 K/mm3 (0.0-0.8) 07/09/20 04:00 Eos # (Auto) 0.0 K/mm3 (0.0-0.4) 07/09/20 04:00 Baso # (Auto) 0.0 K/mm3 (0.0-0.1) 07/09/20 04:00 Add Manual Diff Complete 07/23/20 04:00 Total Counted 100 07/23/20 04:00 Seg Neutrophils % [facility] 07/16/20 09:00 Seg Neuts % (Manual) 94.0 % (40.0-70.0) H 07/23/20 04:00 Band Neutrophils % 0 % 07/23/20 04:00 Lymphocytes % (Manual) 5.0 % (13.4-35.0) L 07/23/20 04:00 Reactive Lymphs % (Man) 0 % 07/23/20 04:00 Monocytes % (Manual) 1.0 % (0.0-7.3) 07/23/20 04:00 Eosinophils % (Manual) 0 % (0.0-4.3) 07/23/20 04:00 Basophils % (Manual) 0 % (0.0-1.8) 07/23/20 04:00 Metamyelocytes % 0 % 07/23/20 04:00 Myelocytes % 0 % 07/23/20 04:00 Promyelocytes % 0 % 07/23/20 04:00 Blast Cells % 0 % 07/23/20 04:00 Nucleated RBC % Not Reportable 07/23/20 04:00 Seg Neutrophils # 14.2 K/mm3 (1.8-7.7) H 07/09/20 04:00 Seg Neutrophils # Man 10.9 K/mm3 (1.8-7.7) H 07/23/20 04:00 Band Neutrophils # 0.0 K/mm3 07/23/20 04:00 Lymphocytes # (Manual) 0.6 K/mm3 (1.2-5.4) L 07/23/20 04:00 Abs React Lymphs (Man) 0.0 K/mm3 07/23/20 04:00 Monocytes # (Manual) 0.1 K/mm3 (0.0-0.8) 07/23/20 04:00 Eosinophils # (Manual) 0.0 K/mm3 (0.0-0.4) 07/23/20 04:00 Basophils # (Manual) 0.0 K/mm3 (0.0-0.1) 07/23/20 04:00 Metamyelocytes # 0.0 K/mm3 07/23/20 04:00 Myelocytes # 0.0 K/mm3 07/23/20 04:00 Promyelocytes # 0.0 K/mm3 07/23/20 04:00 Blast Cells # 0.0 K/mm3 07/23/20 04:00 WBC Morphology Not Reportable 07/23/20 04:00 Hypersegmented Neuts Not Reportable 07/23/20 04:00 Hyposegmented Neuts Not Reportable 07/23/20 04:00 Hypogranular Neuts Not Reportable 07/23/20 04:00 Smudge Cells Not Reportable 07/23/20 04:00 Toxic Granulation Not Reportable 07/23/20 04:00 Toxic Vacuolation Not Reportable 07/23/20 04:00 Dohle Bodies Not Reportable 07/23/20 04:00 Pelger-Huet Anomaly Not Reportable 07/23/20 04:00 Savanna Rods Not Reportable 07/23/20 04:00 Platelet Estimate Consistent w auto 07/23/20 04:00 Clumped Platelets Not Reportable 07/23/20 04:00 Plt Clumps, EDTA Not Reportable 07/23/20 04:00 Large Platelets Not Reportable 07/23/20 04:00 Giant Platelets Not Reportable 07/23/20 04:00 Platelet Satelliting Not Reportable 07/23/20 04:00 Plt Morphology Comment Not Reportable 07/23/20 04:00 RBC Morphology Not Reportable 07/23/20 04:00 Dimorphic RBCs Not Reportable 07/23/20 04:00 Polychromasia Few 07/23/20 04:00 Hypochromasia Not Reportable 07/23/20 04:00 Poikilocytosis Not Reportable 07/23/20 04:00 Anisocytosis Not Reportable 07/23/20 04:00 Microcytosis Not Reportable 07/23/20 04:00 Macrocytosis Not Reportable 07/23/20 04:00 Spherocytes Not Reportable 07/23/20 04:00 Pappenheimer Bodies Not Reportable 07/23/20 04:00 Sickle Cells Not Reportable 07/23/20 04:00 Target Cells Not Reportable 07/23/20 04:00 Tear Drop Cells Few 07/23/20 04:00 Ovalocytes Not Reportable 07/23/20 04:00 Helmet Cells Not Reportable 07/23/20 04:00 Raza-Perry Bodies Not Reportable 07/23/20 04:00 Hayden Rings Not Reportable 07/23/20 04:00 Kristan Cells Not Reportable 07/23/20 04:00 Bite Cells Not Reportable 07/23/20 04:00 Crenated Cell Not Reportable 07/23/20 04:00 Elliptocytes Not Reportable 07/23/20 04:00 Acanthocytes (Spur) Not Reportable 07/23/20 04:00 Rouleaux Not Reportable 07/23/20 04:00 Hemoglobin C Crystals Not Reportable 07/23/20 04:00 Schistocytes Not Reportable 07/23/20 04:00 Malaria parasites Not Reportable 07/23/20 04:00 Junaid Bodies Not Reportable 07/23/20 04:00 Hem Pathologist Commnt No 07/23/20 04:00 D-Dimer 826.36 ng/mlDDU (0-234) H 07/13/20 07:20 ABG pH 7.416 pH Units (7.350-7.450) 07/25/20 03:53 POC ABG pCO2 46.1 mmHg (32.0-48.0) 07/22/20 03:26 ABG pCO2 54.2 mm Hg 07/25/20 03:53 POC ABG pO2 54.2 mmHg (83-108) L 07/22/20 03:26 ABG pO2 175.9 mm Hg (80.0-90.0) H 07/25/20 03:53 POC ABG HCO3 30.0 07/22/20 03: ABG HCO3 34.0 mmol/L (20.0-26.0) H 07/25/20 03:53 ABG O2 Saturation 99.1 % (95.0-99.0) H 07/25/20 03:53 ABG O2 Content 14.9 (0.0-44) 07/25/20 03:53 POC ABG Base Excess 5.0 07/22/20 03:26 ABG Base Excess 8.2 mmol/L (-2.0-3.0) H 07/25/20 03:53 ABG Hemoglobin 10.6 gm/dl (12.0-16.0) L 07/25/20 03:53 ABG Oxyhemoglobin 93.6 (94-98) L 07/19/20 16:29 ABG Carboxyhemoglobin 1.4 % (0.0-5.0) 07/25/20 03:53 ABG Methemoglobin 0.6 % (0.0-1.5) 07/25/20 03:53 ABG Sodium 133.7 mmol/L (136.0-145.0) L 07/22/20 03:26 ABG Potassium 4.2 mmol/L (3.40-4.50) 07/22/20 03:26 ABG Chloride 100.0 mmol/L (98-107) 07/22/20 03:26 ABG Glucose 217 mg/dL (65-95) H 07/22/20 03:26 Oxyhemoglobin 97.1 % (95.0-99.0) 07/25/20 03:53 Carboxyhemoglobin 0.7 (0.5-1.5) 07/19/20 16:29 FiO2 90 % 07/25/20 03:53 Sodium 137 mmol/L (137-145) 07/23/20 04:00 Potassium 3.9 mmol/L (3.6-5.0) 07/23/20 04:00 Chloride 99.6 mmol/L (98-107) 07/23/20 04:00 Carbon Dioxide 35 mmol/L (22-30) H 07/23/20 04:00 Anion Gap 6 mmol/L 07/23/20 04:00 BUN 14 mg/dL (7-17) 07/23/20 04:00 Creatinine 0.4 mg/dL (0.6-1.2) L 07/23/20 04:00 Estimated GFR > 60 ml/min 07/23/20 04:00 BUN/Creatinine Ratio 35 % 07/23/20 04:00 Glucose 112 mg/dL (65-100) H 07/23/20 04:00 POC Glucose 144 mg/dL (70-105) H 07/25/20 05:47 Lactic Acid 1.90 mmol/L (0.7-2.0) 07/09/20 Unknown Calcium 8.2 mg/dL (8.4-10.2) L 07/23/20 04:00 Phosphorus 3.20 mg/dL (2.5-4.5) 07/08/20 16:13 Magnesium 2.20 mg/dL (1.7-2.3) 07/08/20 16:13 Ferritin 219.8 ng/mL (10.0-200.0) H 07/13/20 07:20 Total Bilirubin 0.20 mg/dL (0.1-1.2) 07/13/20 07:20 AST 14 units/L (5-40) 07/13/20 07:20 ALT 13 units/L (7-56) 07/13/20 07:20 Alkaline Phosphatase 53 units/L (35-129) 07/13/20 07:20 Lactate Dehydrogenase 531 units/L (91-180) H 07/15/20 09:00 C-Reactive Protein 1.80 mg/dL (0.00-1.30) H 07/13/20 07:20 Total Protein 5.8 g/dL (6.3-8.2) L 07/13/20 07:20 Albumin 3.2 g/dL (3.9-5) L 07/13/20 07:20 Albumin/Globulin Ratio 1.2 % 07/13/20 07:20 Triglycerides 130 mg/dL (2-149) 07/23/20 04:42 Procalcitonin < 0.05 ng/mL (<0.15) 07/10/20 12:10 Arterial Blood Glucose 217 mg/dL (65-95) H 07/22/20 03:26 Arterial Blood Ionized Calcium 4.5 mg/dL (4.6-5.3) L 07/22/20 03:26 Urine Color Yellow (Yellow) 07/11/20 09:30 Urine Turbidity Clear (Clear) 07/11/20 09:30 Urine pH 5.0 (5.0-7.0) 07/11/20 09:30 Ur Specific [place] 1.028 (1.003-1.030) 07/11/20 09:30 Urine Protein <15 mg/dl mg/dL (Negative) 07/11/20 09:30 Urine Glucose (UA) Neg mg/dL (Negative) 07/11/20 09:30 Urine Ketones Neg mg/dL (Negative) 07/11/20 09:30 Urine Blood Neg (Negative) 07/11/20 09:30 Urine Nitrite Neg (Negative) 07/11/20 09:30 Urine Bilirubin Neg (Negative) 07/11/20 09:30 Urine Urobilinogen 2.0 mg/dL (<2.0) 07/11/20 09:30 Ur Leukocyte Esterase Neg (Negative) 07/11/20 09:30 Urine WBC (Auto) 1.0 /HPF (0.0-6.0) 07/11/20 09:30 Urine RBC (Auto) 1.0 /HPF (0.0-6.0) 07/11/20 09:30 U Epithel Cells (Auto) 1.0 /HPF (0-13.0) 07/11/20 09:30 Urine Mucus Few /HPF 07/11/20 09:30 Coronavirus (PCR) Positive (Negative) A 07/23/20 Unknown SARS-CoV-2 IgG Ab Reactive (NonReactive) A 07/15/20 14:30 Blood Type O POSITIVE 07/09/20 15:30 Antibody Screen Negative 07/09/20 15:30 - Diagnostic Impressions Diagnostic Impressions: Echocardiogram 07/19/20 13:13 Transthoracic Echocardiogram Indication: CHF BP: 106/58 Conclusions *The left ventricular systolic function is within normal limits. There are no wall motion abnormalities observed. *The estimated ejection fraction is 60-65%. *Normal left ventricular diastolic filling is observed. Findings Procedure Info: The study quality is fair. Left Ventricle: The left ventricular chamber size, wall thickness and systolic function are within normal limits. There are no wall motion abnormalities observed. Ejection fraction is normal. The estimated ejection fraction is 60-65%. Normal left ventricular diastolic filling is observed. Left Atrium: The left atrium is normal in size with no visual thrombus identified. Right Ventricle: The right ventricular chamber size and systolic function are within normal limits. Right Atrium: The right atrium appears normal. Aortic Valve: The aortic valve is trileaflet. The leaflets are thin with normal excursion. There is no aortic stenosis or regurgitation present. Mitral Valve: The mitral valve leaflets are mildly thickened. There is trace of mitral regurgitation. There is no evidence of mitral stenosis. Tricuspid Valve: The tricuspid valve leaflets are normal. There is trace tricuspid regurgitation. The right ventricular systolic pressure is calculated at 14 mmHg. There is no tricuspid stenosis. Pulmonic Valve: The pulmonic valve appears normal. There is mild pulmonic regurgitation. There is no pulmonic stenosis. Pericardium: The pericardium appears normal. Aorta: The aorta appears normal. Pulmonary Artery: The main pulmonary artery appears normal. Venous: The inferior vena cava appears normal in size. There is a greater than 50% respiratory change in the inferior vena cava dimension. Measurements Chambers 2D Name Value Normal Range IVSd (2D) 1.08 cm (0.6 - 1.1) LVPWd (2D) 0.91 cm (0.6 - 1.1) LVIDd (2D) 4.61 cm (3.7 - 5.6) LVIDs (2D) 3.12 cm (2 - 3.8) LV FS (2D) 32.38 % - EF Teichholz (2D) 60.72 % - Ao root diameter (2D) 3.01 cm (2 - 3.7) Volumes/Mass Name Value Normal Range LA ESV SP 4CH (A/L) 57.18 ml - LA ESV SP 2CH (A/L) 62.63 ml - LA ESV BP (A/L) 60.68 ml - LA ESV BP (A/L) index 28.22 ml/m2 - LA ESV SP 4CH (MOD) 51.17 ml - LA ESV SP 2CH (MOD) 57.8 ml - LA ESV BP (MOD) 54.73 ml - LA ESV BP (MOD) index 25.45 ml/m2 - LV EDV SP 4CH (MOD) 115.34 ml - LV ESV SP 4CH (MOD) 43.26 ml - EF SP 4CH (MOD) 62.5 % - LV EDV SP 2CH (MOD) 43.71 ml - LV ESV SP 2CH (MOD) 17.14 ml - EF SP 2CH (MOD) 60.79 % - LV EDV BP 73.15 ml - LV ESV BP 27.92 ml - BP EF (MOD) 61.83 % - Diastolic/Systolic Function Name Value Normal Range MV E-wave Vmax 0.88 m/sec - MV deceleration time 157.66 msec - MV A-wave Vmax 0.91 m/sec - MV E:A ratio 0.96 ratio - Aortic Valve Name Value Normal Range AV Vmax 1.54 m/sec - AV VTI 31.46 cm - AV peak gradient 9.51 mmHg - AV mean gradient 5.1 mmHg - LVOT diameter 1.95 cm - LVOT Vmax 1.21 m/sec - LVOT VTI 27.59 cm - LVOT peak gradient 5.83 mmHg - LVOT mean gradient 3.3 mmHg - SV LVOT 82.76 ml - SMITH (continuity Vmax) 2.35 cm2 - SMITH (continuity VTI) 2.63 cm2 - Ascending Ao 2.94 cm - Tricuspid Valve Name Value Normal Range TV E-wave Vmax 0.49 m/sec - TR Vmax 1.72 m/sec - TR peak gradient 11.86 mmHg - RAP 3 mmHg - RVSP 14 mmHg - IVC diameter 1.91 cm (1.2 - 2.3) Pulmonic Valve/Qp:Qs Name Value Normal Range PV Vmax 0.94 m/sec - PV peak gradient 3.54 mmHg - ME end-diastolic Vmax 0.54 m/sec - RVOT Vmax 0.68 m/sec - RVOT VTI 13.18 cm - RVOT peak gradient 1.82 mmHg - PV acceleration time 117.98 msec - Tejada/IV: Voiding Method External Female Catheter IV Catheter Type [Left Upper PICC Line arm] IV Catheter Type [Right INT / Saline Lock Forearm] IV Catheter Type [Left Wrist] INT / Saline Lock IV Catheter Type [Left Hand] Peripheral IV Active Medications - Current Medications Current Medications: Generic Name Dose Route Start Last Admin Trade Name Freq PRN Reason Stop Dose Admin Acetaminophen 650 mg 07/06/20 13:39 07/24/20 14:01 Tylenol PO 650 mg Q4H PRN Administration Pain MILD(1-3)/Fever >100.5/WILLETT Albuterol 2.5 mg 07/15/20 14:00 07/25/20 09:07 Proventil IH Not Given TIDRT ROMMEL Alprazolam 0.5 mg 07/07/20 12:28 07/07/20 22:27 Xanax PO 0.5 mg Q8H PRN Administration Anxiety Lipase/Protease/Amylase 1 each 07/08/20 14:50 Pancreaze 10,500 Unit FEEDTUBE PRN PRN For Clogged Feeding Tube Arformoterol Tartrate 15 mcg 07/07/20 09:15 07/25/20 09:07 Brovana Nebu IH 15 mcg Q12HRT ROMMEL Administration Ascorbic Acid 500 mg 07/08/20 22:00 07/24/20 22:11 Vitamin C PO 500 mg BID ROMMEL Administration Aspirin 81 mg 07/06/20 14:00 07/24/20 09:35 Baby Aspirin PO 81 mg QDAY ROMMEL Administration Budesonide 0.5 mg 07/07/20 09:15 07/25/20 09:06 Pulmicort IH 0.5 mg Q12HRT ROMMEL Administration Dextrose 50 ml 07/12/20 16:58 D50w (25gm) Syringe IV Q30MIN PRN Hypoglycemia Protocol Docusate Sodium 100 mg 07/16/20 22:00 07/24/20 22:12 Colace PO 100 mg BID ROMMEL Administration Enoxaparin Sodium 30 mg 07/06/20 15:00 07/24/20 22:11 Enoxaparin SUB-Q 30 mg BID ROMMEL Administration Protocol Fentanyl 50 mcg 07/08/20 13:16 07/11/20 09:41 Sublimaze IV 50 mcg Q10MIN PRN Administration ANALGESIA Hydrophilic Ointment 1 applic 07/08/20 13:16 07/22/20 23:01 Vaseline Lip Therapy TP 1 applic Q2HR PRN Administration Dry Lips Hydroxychloroquine Sulfate 200 mg 07/07/20 10:00 07/24/20 09:35 Plaquenil PO 200 mg QDAY [facility] Administration Fentanyl Citrate 2,000 mcg in 100 mls @ 4.825 mls/hr 07/08/20 14:00 07/25/20 00:39 Fentanyl Drip Premix IV 2 mcg/kg/hr TITR ROMMEL 9.65 mls/hr Administration Protocol 1 MCG/KG/HR Midazolam HCl 100 mg/ Sodium 100 mls @ 2 mls/hr 07/08/20 15:00 07/25/20 06:50 Chloride IV 5 mg/hr TITR ROMMEL 5 mls/hr Administration Protocol 2 MG/HR Sodium Chloride 500 mls @ 10 mls/hr 07/15/20 15:00 Nacl 0.9% 500 Ml IV DIRECT ROMMEL Propofol 1,000 mg in 100 mls @ 3.3 mls/hr 07/19/20 13:00 07/25/20 00:39 Diprivan 10 Mg/Ml IV 15 mcg/kg/min TITR ROMMEL 9.9 mls/hr Administration Protocol 5 MCG/KG/MIN Insulin Glargine 5 units 07/12/20 17:00 07/24/20 17:59 Lantus SUB-Q 5 units Q24H [facility] Administration Insulin Human Regular 0 unit 07/12/20 17:00 07/25/20 05:54 Humulin R SUB-Q Not Given Q6H [facility] Protocol Lansoprazole 30 mg 07/10/20 10:00 07/24/20 09:35 Prevacid Solutab FEEDTUBE 30 mg QDAY [facility] Administration Methylprednisolone Sodium Succinate 40 mg 07/22/20 14:00 07/25/20 05:54 Solu-Medrol IV 40 mg Q8H ROMMEL Administration Midazolam HCl 2 mg 07/08/20 14:33 07/18/20 23:46 Versed IV 2 mg Q10MIN PRN Administration Sedation Multi-Ingred Cream/Lotion/Oil/Oint 1 applic 07/08/20 13:16 Artificial Tears Ophth Oint OU Q4HR PRN Dry Eye(s) Ondansetron HCl 4 mg 07/06/20 13:39 07/08/20 10:44 Zofran IV 4 mg Q8H PRN Administration Nausea And Vomiting Polyethylene Glycol 17 gm 07/16/20 22:00 07/24/20 22:11 Miralax 3350 PO 17 gm QHS ROMMEL Administration Pseudoephedrine/Acetam/Chlorphenir 10 ml 07/07/20 01:17 07/08/20 08:30 Robitussin Ac PO 10 ml Q4H PRN Administration Cough Quetiapine Fumarate 300 mg 07/21/20 22:00 07/24/20 22:12 Seroquel PO 300 mg BID ROMMEL Administration Simple Syrup 15 ml 07/08/20 14:50 Simple Syrup FEEDTUBE PRN PRN Hypoglycemia Simple Syrup 30 ml 07/08/20 14:50 Simple Syrup FEEDTUBE PRN PRN Hypoglycemia Sodium Bicarbonate 325 mg 07/08/20 14:50 Sodium Bicarbonate FEEDTUBE PRN PRN For Clogged Feeding Tube Sodium Chloride 10 ml 07/06/20 14:00 07/24/20 22:13 Sodium Chloride Flush Syringe 10 Ml IV 10 ml BID ROMMEL Administration Sodium Chloride 10 ml 07/06/20 13:39 Sodium Chloride Flush Syringe 10 Ml IV PRN PRN LINE FLUSH Venlafaxine HCl 37.5 mg 07/07/20 10:00 07/24/20 09:35 Effexor PO 37.5 mg DAILY ROMMEL Administration Zinc Sulfate 220 mg 07/08/20 22:00 07/24/20 22:11 Zinc Sulfate PO 220 mg BID ROMMEL Administration Nutrition/Malnutrition Assess - Dietary Evaluation Nutrition/Malnutrition Findings: Nutrition Notes Start: 07/08/20 14:02 Freq: Status: Active Protocol: Document 07/24/20 12:36 LP (Rec: 07/24/20 12:42 LP [id number]) Nutrition Notes Initial or Follow up Reassessment Current Diagnosis Hypertension,Heart Failure Other Pertinent Diagnosis Acute respiratory failure, COVID(+), GERD, Lupus Current Diet Vital AF 1.2 at 55 mL/hr (goal rate) Labs/Tests Reviewed Pertinent Medications Propofol Height 5 ft 5 in Weight 109.8 kg [place] Body Weight (kg) 56.81 BMI 40.2 Weight Status Obese Subjective/Other Information Pt tolerating TF at goal rate. BM July 22. Percent of energy/protein needs met: 96%/87% Burn Absent Trauma Absent GI Symptoms None Current % PO Negligible Minimum of two criteria No physical signs of malnutrition #1 Nutrition Diagnosis Inadequate oral intake Diagnosis Progress(for reassessment Continues documentation) Is patient on ventilator? Yes Is Patient Ambulatory and/or Out of Bed No REE-([facility]-confined to bed) 2077.944 Kcal/Kg value to use for calculation 15 Approximate Energy Requirements Using 1647 kcal/Kg Calculation Used for Recommendations Kcal/kg Additional Notes Pro: greater than 114 g (>2 g/ kg IBW) Fluid: 1ml/kcal or per MD Nutrition Intervention Change Diet Order: Continue TF Nutrition Support: Vital AF at 55 ml/hr Flush 75 ml q4h Kcal 1,584 Protein (gm) 99 Fluid (mL) 1,070 Goal #1 Meet at least 80% of protein and energy needs via TF Anticipated Discharge Needs: Cannot determine at this time Follow-Up By: 07/31/20 Additional Comments Follow for TF Tolerance
[2020-07-25] MEDS: POLYETHYLENE GLYCOL 3350 17 GM POWDER PO SCH (22:31)
[2020-07-25] MEDS: GABAPENTIN 300 MG CAP PO SCH (22:34)
[2020-07-25] MEDS: QUEtiapine 200 MG TAB PO SCH (22:34)
[2020-07-25] MEDS: INSULIN GLARGINE 100 UNITS/ML SUB-Q SCH (23:01)
[2020-07-26 04:38] LABS: ABG Base Excess 8.3 mmol/L (-2.0-3.0); ABG Methemoglobin 0.5 % (0.0-1.5); ABG PCO2 61.6 mm Hg; ABG PH 7.373 pH Units (7.350-7.450); ABG PO2 73.4 mm Hg (80.0-90.0)
[2020-07-26] MEDS: fentaNYL DRIP Premix 2,000 MCG/100 ML BAG IV SCH ×3 (06:23→18:46)
[2020-07-26] MEDS: GABAPENTIN 300 MG CAP PO SCH ×3 (06:32→13:23)
[2020-07-26] MEDS: methylPREDNISolone Sod Succinate 40 MG/1 ML INJ IV SCH ×3 (06:33→13:22)
[2020-07-26] MEDS: INSULIN REGULAR, HUMAN 100 UNIT/ML 3ML VIAL SUB-Q SCH ×3 (06:52→13:11)
[2020-07-26] MEDS: GABAPENTIN 400 MG CAP PO SCH (07:31)
[2020-07-26] MEDS: ALBUTEROL 2.5 MG/3 ML NEBU IH SCH (09:01)
[2020-07-26] MEDS: BUDESONIDE 0.5 MG/2 ML NEBU IH SCH ×2 (09:01→20:04)
[2020-07-26] MEDS: ARFORMOTEROL 15 MCG/2 ML NEBU IH SCH ×2 (09:01→20:04)
[2020-07-26] MEDS: LANSOPRAZOLE 30 MG SOLUTAB FEEDTUBE SCH (09:41)
[2020-07-26] MEDS: ENOXAPARIN 30 MG/0.3 ML INJ SUB-Q SCH (09:41)
[2020-07-26] MEDS: ASCORBIC ACID 500 MG TAB PO SCH (09:41)
[2020-07-26] MEDS: VENLAFAXINE 37.5 MG TAB PO SCH (09:42)
[2020-07-26] MEDS: HYDROXYCHLOROQUINE 200 MG TAB PO SCH (09:42)
[2020-07-26] MEDS: ZINC SULFATE 220 MG CAP PO SCH (09:42)
[2020-07-26] MEDS: QUEtiapine 100 MG TAB PO SCH (09:42)
[2020-07-26] MEDS: DOCUSATE SODIUM 100 MG/10 ML ORAL LIQD PO SCH (09:42)
[2020-07-26] MEDS: QUEtiapine 200 MG TAB PO SCH (09:42)
[2020-07-26] MEDS: ASPIRIN 81 MG TAB CHEW PO SCH (09:45)
--- NOTE | 2020-07-26 09:59 | Progress Note ---
Assessment and Plan Assessment and plan: --Acute asthma exacerbation on iv steroid Oxygen supplementation as needed Continue montelukast Monitor oxygen saturations closely -- COVID-19 Tested positive for COVID-19 in [place] iv steroid, s/p Remdesivir for 5 days s/p convalescent plasma transfusion Procalcitonin <0.05, ID on board follow ferritin, ldh, d-dimer levels -- Acute hypoxic respiratory failure Now intubated on 07/09/20 overnight From COVID-19 and asthma exacerbation Continue steroids Continue oxygen supplementation -- GERD (gastroesophageal reflux disease) cont Pantoprazole --SLE (systemic lupus erythematosus related syndrome) Continue home medications-hydroxychloroquine -- DVT prophylaxis Lovenox 30 mg twice daily -- Full code status brief History: 50-year-old female with a past medical history of asthma, hypertension, and lupus complains of generalized body weakness, fever and shortness of breath. Patient states the symptoms started right after she was discharged from [place] on 07/05. She has associated wheezing, fever, cough and she has been using her inhalers with no significant effect. She also has associated diarrhea. Of note, she was hospitalized here in [facility] on 06/28 for asthma exacerbation and had a negative Covid test during the admission. She was treated and discharged. She presented to [place] for further evaluation after discharge from here and over there, she was found to have positive COVID-19 test and she was placed on steroids and subsequently discharged on Eliquis prophylaxis for DVT. She states that she did not receive remdesivir during the admission. She was discharged from [place] on 07/05. She went home and felt worse. She said that she passed out about 2 times. Due to persistent symptoms, she called EMS who brought her to [facility] for further evaluation. Daily course: 07/07. Patient seen and examined at bedside this morning. Patient is wheezing and slightly short of breath. Change steroids to Solu-Medrol 60 every 6. Added formoterol and budesonide. ID evaluation pending. Started patient on remdesivir as she is short of breath. 07/07: Placed on BIPAP this AM. Will need pulm evaluation. Solumedrol 60mg q6. STAT blood gas ordered. She will be transferred to [facility]. 07/08: Patient took oxygen off and attempts to go to the bathroom and subsequently became hypoxemic with sats down into the low 80s. Patient became weak short of breath. After that time patient had persistent coughing and cannot maintain sats until nonrebreather was placed. Patient is transferred to the ICU unit and monitored for respiratory failure possibly requiring intubation. 07/09: ID recommended for convalescent plasma, ordered. Patient intubated overnight. Continue to monitor clinically, scheduled lab, follow inflammatory markers 07/10: Wait for convalescent plasma transfusion, wean off from ventilator as tolerated 07/11: Called patient's daughter and updated. Continue to wean off vent as tolerated, continue tube feeding, monitor vital sign CBC BMP daily. 07/12: remains intubated and sedated. follow inflammatory markers - wean off vent as tolerated 07/13: wean off vent as tolerated, cxr in the am. reviewed vitals 07/14: remains intubated, has not received convalescent plasma yet. Reviewed vitals, tolerating tube feeding. Wean off vent per critical care as tolerated. 07/15: cont to provide supportive care, wean off vent as tolerated - difficult to wean off. 07/16: CXR findings improving, cont to wean off vent 07/17: Follow inflammatory markers, monitor off antibiotics. Wean off vent per pulmonary as tolerated 07/18: Wean off vent per pulmonary as tolerated,Follow inflammatory markers, monitor off antibiotics. 07/19: Wean off vent per pulmonary as tolerated,Follow inflammatory markers, monitor off antibiotics. SBT trial 07/20: Wean off vent as tolerated, continue supportive care, follow inflammatory markers 07/21: continue supportive care, follow inflammatory markers, wean off vent as tolerated 07/22: Continue to wean off from ventilator as tolerated per pulmonary recommendation, follow inflammatory markers. Repeat CBC BMP in the morning. We will repeat Covid test tomorrow to see if patient cleared the infection. 07/23. Continue to wean off from ventilator as tolerated per pulmonary recommen dation, follow inflammatory markers. Currently AC mode, rate 16, tidal volume 450 with FiO2 75%vand PEEP 14 07/24/2020. Continue ventilatory support with AC mode, rate 16, tidal volume 450, FiO2 100% and PEEP of 16. Continue Brovana and Pulmicort. Continue IV steroids 40 mg IV every 8 hours. Anticoagulation with Lovenox 30 mg twice daily. Patient currently sedated with Versed and fentanyl. 07/25/2020. Continue ventilatory support with AC mode, rate 16, tidal volume 450, FiO2 75% and PEEP of 16. Continue Brovana and Pulmicort. Continue IV steroids 40 mg IV every 8 hours. Anticoagulation with Lovenox 30 mg twice daily. Patient currently sedated with Versed and fentanyl. Continue to wean per pulmonary recommendations. 07/26/2020. Continue ventilatory support with AC mode, rate 16, tidal volume 450, FiO2 85% and PEEP of 16. Continue Brovana and Pulmicort. Continue IV steroids 40 mg IV every 8 hours. Anticoagulation with Lovenox 30 mg twice daily. Patient currently sedated with Versed and fentanyl. Continue to wean per protocol. The high probability of a clinically significant, sudden or life threatening deterioration of the [[employer], respiratory, [employer]ATIONS MANAGER] system(s) required my full and direct attention, intervention and personal management. The aggregate critical care time was [32] minutes. This time is in addition to time spent performing reported procedures but includes the following: [x] Data Review and interpretation [x] Patient assessment and monitoring of vital signs [x] Documentation [x] Medication orders and management History Interval history: No new issues overnight. Hospitalist Physical - Constitutional Vitals: Temp Pulse Resp BP Pulse Ox 100.7 F H 110 H 30 H 124/73 92 07/26/20 08:00 07/26/20 09:01 07/26/20 09:01 07/26/20 08:59 07/26/20 08:59 General appearance: Present: no acute distress, well-nourished - EENT Eyes: Present: PERRL, EOM intact ENT: hearing intact, clear oral mucosa, dentition normal - Neck Neck: Present: supple, normal ROM - Respiratory Respiratory effort: normal Respiratory: bilateral: CTA - Cardiovascular Rhythm: regular Heart Sounds: Present: S1 & S2. Absent: gallop, rub - Extremities Extremities: no ischemia, No edema, Full ROM - Abdominal General gastrointestinal: soft, non-tender, non-distended, normal bowel sounds - Integumentary Integumentary: Present: clear, warm, dry - Neurologic Neurologic: CNII-XII intact, moves all extremities Results - Labs CBC & Chem 7: 07/23/20 04:00 07/23/20 04:00 Labs: Laboratory Last Values WBC 11.6 K/mm3 (4.5-11.0) H 07/23/20 04:00 RBC 3.54 M/mm3 (3.65-5.03) L 07/23/20 04:00 Hgb 10.7 gm/dl (10.1-14.3) 07/23/20 04:00 Hct 32.1 % (30.3-42.9) 07/23/20 04:00 MCV 91 fl (79-97) 07/23/20 04:00 MCH 30 pg (28-32) 07/23/20 04:00 MCHC 33 % (30-34) 07/23/20 04:00 RDW 15.0 % (13.2-15.2) 07/23/20 04:00 Plt Count 201 K/mm3 (140-440) 07/23/20 04:00 Lymph % (Auto) 4.7 % (13.4-35.0) L 07/09/20 04:00 Nicholas % (Auto) 4.0 % (0.0-7.3) 07/09/20 04:00 Eos % (Auto) 0.0 % (0.0-4.3) 07/09/20 04:00 Baso % (Auto) 0.1 % (0.0-1.8) 07/09/20 04:00 Lymph # (Auto) 0.7 K/mm3 (1.2-5.4) L 07/09/20 04:00 Nicholas # (Auto) 0.6 K/mm3 (0.0-0.8) 07/09/20 04:00 Eos # (Auto) 0.0 K/mm3 (0.0-0.4) 07/09/20 04:00 Baso # (Auto) 0.0 K/mm3 (0.0-0.1) 07/09/20 04:00 Add Manual Diff Complete 07/23/20 04:00 Total Counted 100 07/23/20 04:00 Seg Neutrophils % Concrete [employer] Operator 07/16/20 09:00 Seg Neuts % (Manual) 94.0 % (40.0-70.0) H 07/23/20 04:00 Band Neutrophils % 0 % 07/23/20 04:00 Lymphocytes % (Manual) 5.0 % (13.4-35.0) L 07/23/20 04:00 Reactive Lymphs % (Man) 0 % 07/23/20 04:00 Monocytes % (Manual) 1.0 % (0.0-7.3) 07/23/20 04:00 Eosinophils % (Manual) 0 % (0.0-4.3) 07/23/20 04:00 Basophils % (Manual) 0 % (0.0-1.8) 07/23/20 04:00 Metamyelocytes % 0 % 07/23/20 04:00 Myelocytes % 0 % 07/23/20 04:00 Promyelocytes % 0 % 07/23/20 04:00 Blast Cells % 0 % 07/23/20 04:00 Nucleated RBC % Not Reportable 07/23/20 04:00 Seg Neutrophils # 14.2 K/mm3 (1.8-7.7) H 07/09/20 04:00 Seg Neutrophils # Man 10.9 K/mm3 (1.8-7.7) H 07/23/20 04:00 Band Neutrophils # 0.0 K/mm3 07/23/20 04:00 Lymphocytes # (Manual) 0.6 K/mm3 (1.2-5.4) L 07/23/20 04:00 Abs React Lymphs (Man) 0.0 K/mm3 07/23/20 04:00 Monocytes # (Manual) 0.1 K/mm3 (0.0-0.8) 07/23/20 04:00 Eosinophils # (Manual) 0.0 K/mm3 (0.0-0.4) 07/23/20 04:00 Basophils # (Manual) 0.0 K/mm3 (0.0-0.1) 07/23/20 04:00 Metamyelocytes # 0.0 K/mm3 07/23/20 04:00 Myelocytes # 0.0 K/mm3 07/23/20 04:00 Promyelocytes # 0.0 K/mm3 07/23/20 04:00 Blast Cells # 0.0 K/mm3 07/23/20 04:00 WBC Morphology Not Reportable 07/23/20 04:00 Hypersegmented Neuts Not Reportable 07/23/20 04:00 Hyposegmented Neuts Not Reportable 07/23/20 04:00 Hypogranular Neuts Not Reportable 07/23/20 04:00 Smudge Cells Not Reportable 07/23/20 04:00 Toxic Granulation Not Reportable 07/23/20 04:00 Toxic Vacuolation Not Reportable 07/23/20 04:00 Dohle Bodies Not Reportable 07/23/20 04:00 Pelger-Huet Anomaly Not Reportable 07/23/20 04:00 Savanna Rods Not Reportable 07/23/20 04:00 Platelet Estimate Consistent w auto 07/23/20 04:00 Clumped Platelets Not Reportable 07/23/20 04:00 Plt Clumps, EDTA Not Reportable 07/23/20 04:00 Large Platelets Not Reportable 07/23/20 04:00 Giant Platelets Not Reportable 07/23/20 04:00 Platelet Satelliting Not Reportable 07/23/20 04:00 Plt Morphology Comment Not Reportable 07/23/20 04:00 RBC Morphology Not Reportable 07/23/20 04:00 Dimorphic RBCs Not Reportable 07/23/20 04:00 Polychromasia Few 07/23/20 04:00 Hypochromasia Not Reportable 07/23/20 04:00 Poikilocytosis Not Reportable 07/23/20 04:00 Anisocytosis Not Reportable 07/23/20 04:00 Microcytosis Not Reportable 07/23/20 04:00 Macrocytosis Not Reportable 07/23/20 04:00 Spherocytes Not Reportable 07/23/20 04:00 Pappenheimer Bodies Not Reportable 07/23/20 04:00 Sickle Cells Not Reportable 07/23/20 04:00 Target Cells Not Reportable 07/23/20 04:00 Tear Drop Cells Few 07/23/20 04:00 Ovalocytes Not Reportable 07/23/20 04:00 Helmet Cells Not Reportable 07/23/20 04:00 [place] Bodies Not Reportable 07/23/20 04:00 [place] Rings Not Reportable 07/23/20 04:00 [place] Cells Not Reportable 07/23/20 04:00 Bite Cells Not Reportable 07/23/20 04:00 Crenated Cell Not Reportable 07/23/20 04:00 Elliptocytes Not Reportable 07/23/20 04:00 Acanthocytes (Spur) Not Reportable 07/23/20 04:00 Rouleaux Not Reportable 07/23/20 04:00 Hemoglobin C Crystals Not Reportable 07/23/20 04:00 Schistocytes Not Reportable 07/23/20 04:00 Malaria parasites Not Reportable 07/23/20 04:00 Junaid Bodies Not Reportable 07/23/20 04:00 Hem Pathologist Commnt No 07/23/20 04:00 D-Dimer 826.36 ng/mlDDU (0-234) H 07/13/20 07:20 ABG pH 7.373 pH Units (7.350-7.450) 07/26/20 03:48 POC ABG pCO2 46.1 mmHg (32.0-48.0) 07/22/20 03:26 ABG pCO2 61.6 mm Hg 07/26/20 03:48 POC ABG pO2 54.2 mmHg (83-108) L 07/22/20 03:26 ABG pO2 73.4 mm Hg (80.0-90.0) L 07/26/20 03:48 POC ABG HCO3 30.0 07/22/20 03:26 ABG HCO3 35.0 mmol/L (20.0-26.0) H 07/26/20 03:48 ABG O2 Saturation 96.0 % (95.0-99.0) 07/26/20 03:48 ABG O2 Content 12.9 (0.0-44) 07/26/20 03:48 POC ABG Base Excess 5.0 07/22/20 03:26 ABG Base Excess 8.3 mmol/L (-2.0-3.0) H 07/26/20 03:48 ABG Hemoglobin 9.8 gm/dl (12.0-16.0) L 07/26/20 03:48 ABG Oxyhemoglobin 93.6 (94-98) L 07/19/20 16:29 ABG Carboxyhemoglobin 1.8 % (0.0-5.0) 07/26/20 03:48 ABG Methemoglobin 0.5 % (0.0-1.5) 07/26/20 03:48 ABG Sodium 133.7 mmol/L (136.0-145.0) L 07/22/20 03:26 ABG Potassium 4.2 mmol/L (3.40-4.50) 07/22/20 03:26 ABG Chloride 100.0 mmol/L (98-107) 07/22/20 03:26 ABG Glucose 217 mg/dL (65-95) H 07/22/20 03:26 Oxyhemoglobin 93.7 % (95.0-99.0) L 07/26/20 03:48 Carboxyhemoglobin 0.7 (0.5-1.5) 07/19/20 16:29 FiO2 85 % 07/26/20 03:48 Sodium 137 mmol/L (137-145) 07/23/20 04:00 Potassium 3.9 mmol/L (3.6-5.0) 07/23/20 04:00 Chloride 99.6 mmol/L (98-107) 07/23/20 04:00 Carbon Dioxide 35 mmol/L (22-30) H 07/23/20 04:00 Anion Gap 6 mmol/L 07/23/20 04:00 BUN 14 mg/dL (7-17) 07/23/20 04:00 Creatinine 0.4 mg/dL (0.6-1.2) L 07/23/20 04:00 Estimated GFR > 60 ml/min 07/23/20 04:00 BUN/Creatinine Ratio 35 % 07/23/20 04:00 Glucose 112 mg/dL (65-100) H 07/23/20 04:00 POC Glucose 136 mg/dL (70-105) H 07/26/20 05:36 Lactic Acid 1.90 mmol/L (0.7-2.0) 07/09/20 Unknown Calcium 8.2 mg/dL (8.4-10.2) L 07/23/20 04:00 Phosphorus 3.20 mg/dL (2.5-4.5) 07/08/20 16:13 Magnesium 2.20 mg/dL (1.7-2.3) 07/08/20 16:13 Ferritin 219.8 ng/mL (10.0-200.0) H 07/13/20 07:20 Total Bilirubin 0.20 mg/dL (0.1-1.2) 07/13/20 07:20 AST 14 units/L (5-40) 07/13/20 07:20 ALT 13 units/L (7-56) 07/13/20 07:20 Alkaline Phosphatase 53 units/L (35-129) 07/13/20 07:20 Lactate Dehydrogenase 531 units/L (91-180) H 07/15/20 09:00 C-Reactive Protein 1.80 mg/dL (0.00-1.30) H 07/13/20 07:20 Total Protein 5.8 g/dL (6.3-8.2) L 07/13/20 07:20 Albumin 3.2 g/dL (3.9-5) L 07/13/20 07:20 Albumin/Globulin Ratio 1.2 % 07/13/20 07:20 Triglycerides 130 mg/dL (2-149) 07/23/20 04:42 Procalcitonin < 0.05 ng/mL (<0.15) 07/10/20 12:10 Arterial Blood Glucose 217 mg/dL (65-95) H 07/22/20 03:26 Arterial Blood Ionized Calcium 4.5 mg/dL (4.6-5.3) L 07/22/20 03:26 Urine Color Yellow (Yellow) 07/11/20 09:30 Urine Turbidity Clear (Clear) 07/11/20 09:30 Urine pH 5.0 (5.0-7.0) 07/11/20 09:30 Ur Specific [place] 1.028 (1.003-1.030) 07/11/20 09:30 Urine Protein <15 mg/dl mg/dL (Negative) 07/11/20 09:30 Urine Glucose (UA) Neg mg/dL (Negative) 07/11/20 09:30 Urine Ketones Neg mg/dL (Negative) 07/11/20 09:30 Urine Blood Neg (Negative) 07/11/20 09:30 Urine Nitrite Neg (Negative) 07/11/20 09:30 Urine Bilirubin Neg (Negative) 07/11/20 09:30 Urine Urobilinogen 2.0 mg/dL (<2.0) 07/11/20 09:30 Ur Leukocyte Esterase Neg (Negative) 07/11/20 09:30 Urine WBC (Auto) 1.0 /HPF (0.0-6.0) 07/11/20 09:30 Urine RBC (Auto) 1.0 /HPF (0.0-6.0) 07/11/20 09:30 U Epithel Cells (Auto) 1.0 /HPF (0-13.0) 07/11/20 09:30 Urine Mucus Few /HPF 07/11/20 09:30 Coronavirus (PCR) Positive (Negative) A 07/23/20 Unknown SARS-CoV-2 IgG Ab Reactive (NonReactive) A 07/15/20 14:30 Blood Type O POSITIVE 07/09/20 15:30 Antibody Screen Negative 07/09/20 15:30 - Diagnostic Impressions Diagnostic Impressions: Echocardiogram 07/19/20 13:13 Transthoracic Echocardiogram Indication: CHF BP: 106/58 Conclusions *The left ventricular systolic function is within normal limits. There are no wall motion abnormalities observed. *The estimated ejection fraction is 60-65%. *Normal left ventricular diastolic filling is observed. Findings Procedure Info: The study quality is fair. Left Ventricle: The left ventricular chamber size, wall thickness and systolic function are within normal limits. There are no wall motion abnormalities observed. Ejection fraction is normal. The estimated ejection fraction is 60-65%. Normal left ventricular diastolic filling is observed. Left Atrium: The left atrium is normal in size with no visual thrombus identified. Right Ventricle: The right ventricular chamber size and systolic function are within normal limits. Right Atrium: The right atrium appears normal. Aortic Valve: The aortic valve is trileaflet. The leaflets are thin with normal excursion. There is no aortic stenosis or regurgitation present. Mitral Valve: The mitral valve leaflets are mildly thickened. There is trace of mitral regurgitation. There is no evidence of mitral stenosis. Tricuspid Valve: The tricuspid valve leaflets are normal. There is trace tricuspid regurgitation. The right ventricular systolic pressure is calculated at 14 mmHg. There is no tricuspid stenosis. Pulmonic Valve: The pulmonic valve appears normal. There is mild pulmonic regurgitation. There is no pulmonic stenosis. Pericardium: The pericardium appears normal. Aorta: The aorta appears normal. Pulmonary Artery: The main pulmonary artery appears normal. Venous: The inferior vena cava appears normal in size. There is a greater than 50% respiratory change in the inferior vena cava dimension. Measurements Chambers 2D Name Value Normal Range IVSd (2D) 1.08 cm (0.6 - 1.1) LVPWd (2D) 0.91 cm (0.6 - 1.1) LVIDd (2D) 4.61 cm (3.7 - 5.6) LVIDs (2D) 3.12 cm (2 - 3.8) LV FS (2D) 32.38 % - EF Teichholz (2D) 60.72 % - Ao root diameter (2D) 3.01 cm (2 - 3.7) Volumes/Mass Name Value Normal Range LA ESV SP 4CH (A/L) 57.18 ml - LA ESV SP 2CH (A/L) 62.63 ml - LA ESV BP (A/L) 60.68 ml - LA ESV BP (A/L) index 28.22 ml/m2 - LA ESV SP 4CH (MOD) 51.17 ml - LA ESV SP 2CH (MOD) 57.8 ml - LA ESV BP (MOD) 54.73 ml - LA ESV BP (MOD) index 25.45 ml/m2 - LV EDV SP 4CH (MOD) 115.34 ml - LV ESV SP 4CH (MOD) 43.26 ml - EF SP 4CH (MOD) 62.5 % - LV EDV SP 2CH (MOD) 43.71 ml - LV ESV SP 2CH (MOD) 17.14 ml - EF SP 2CH (MOD) 60.79 % - LV EDV BP 73.15 ml - LV ESV BP 27.92 ml - BP EF (MOD) 61.83 % - Diastolic/Systolic Function Name Value Normal Range MV E-wave Vmax 0.88 m/sec - MV deceleration time 157.66 msec - MV A-wave Vmax 0.91 m/sec - MV E:A ratio 0.96 ratio - Aortic Valve Name Value Normal Range AV Vmax 1.54 m/sec - AV VTI 31.46 cm - AV peak gradient 9.51 mmHg - AV mean gradient 5.1 mmHg - LVOT diameter 1.95 cm - LVOT Vmax 1.21 m/sec - LVOT VTI 27.59 cm - LVOT peak gradient 5.83 mmHg - LVOT mean gradient 3.3 mmHg - SV LVOT 82.76 ml - SMITH (continuity Vmax) 2.35 cm2 - SMITH (continuity VTI) 2.63 cm2 - Ascending Ao 2.94 cm - Tricuspid Valve Name Value Normal Range TV E-wave Vmax 0.49 m/sec - TR Vmax 1.72 m/sec - TR peak gradient 11.86 mmHg - RAP 3 mmHg - RVSP 14 mmHg - IVC diameter 1.91 cm (1.2 - 2.3) Pulmonic Valve/Qp:Qs Name Value Normal Range PV Vmax 0.94 m/sec - PV peak gradient 3.54 mmHg - PA end-diastolic Vmax 0.54 m/sec - RVOT Vmax 0.68 m/sec - RVOT VTI 13.18 cm - RVOT peak gradient 1.82 mmHg - PV acceleration time 117.98 msec - [place]/IV: Voiding Method External Female Catheter IV Catheter Type [Left Upper PICC Line arm] IV Catheter Type [Right INT / Saline Lock Forearm] IV Catheter Type [Left Wrist] INT / Saline Lock IV Catheter Type [Left Hand] Peripheral IV Active Medications - Current Medications Current Medications: Generic Name Dose Route Start Last Admin Trade Name Freq PRN Reason Stop Dose Admin Acetaminophen 650 mg 07/06/20 13:39 07/24/20 14:01 Tylenol PO 650 mg Q4H PRN Administration Pain MILD(1-3)/Fever >100.5/WILLETT Albuterol 2.5 mg 07/15/20 14:00 07/26/20 09:01 Proventil IH Not Given TIDRT ROMMEL Alprazolam 0.5 mg 07/07/20 12:28 07/07/20 22:27 Xanax PO 0.5 mg Q8H PRN Administration Anxiety Lipase/Protease/Amylase 1 each 07/08/20 14:50 Pancreazchristina Price 10,500 Unit FEEDTUBE PRN PRN For Clogged Feeding Tube Arformoterol Tartrate 15 mcg 07/07/20 09:15 07/26/20 09:01 Brovana Nebu IH 15 mcg Q12HRT ROMMEL Administration Ascorbic Acid 500 mg 07/08/20 22:00 07/26/20 09:41 Vitamin C PO 500 mg BID ROMMEL Administration Aspirin 81 mg 07/06/20 14:00 07/26/20 09:45 Baby Aspirin PO 81 mg QDAY ROMMEL Administration Budesonide 0.5 mg 07/07/20 09:15 07/26/20 09:01 Pulmicort IH 0.5 mg Q12HRT ROMMEL Administration Dextrose 50 ml 07/12/20 16:58 D50w (25gm) Syringe IV Q30MIN PRN Hypoglycemia Protocol Docusate Sodium 100 mg 07/16/20 22:00 07/26/20 09:42 Colace PO 100 mg BID ROMMEL Administration Enoxaparin Sodium 30 mg 07/06/20 15:00 07/26/20 09:41 Enoxaparin SUB-Q 30 mg BID [facility] Administration Protocol Fentanyl 50 mcg 07/08/20 13:16 07/11/20 09:41 Sublimaze IV 50 mcg Q10MIN PRN Administration ANALGESIA Gabapentin 600 mg 07/25/20 14:00 07/26/20 07:28 Gabapentin PO Not Given Q8HR [facility] Hydrophilic Ointment 1 applic 07/08/20 13:16 07/22/20 23:01 Vaseline Lip Therapy TP 1 applic Q2HR PRN Administration Dry Lips Hydroxychloroquine Sulfate 200 mg 07/07/20 10:00 07/26/20 09:42 Plaquenil PO 200 mg QDAY [facility] Administration Fentanyl Citrate 2,000 mcg in 100 mls @ 4.825 mls/hr 07/08/20 14:00 07/26/20 06:23 Fentanyl Drip Premix IV 2 mcg/kg/hr TITR ROMMEL 9.65 mls/hr Administration Protocol 1 MCG/KG/HR Midazolam HCl 100 mg/ Sodium 100 mls @ 2 mls/hr 07/08/20 15:00 07/26/20 09:00 Chloride IV 4 mg/hr TITR ROMMEL 4 mls/hr Titration Protocol 2 MG/HR Sodium Chloride 500 mls @ 10 mls/hr 07/15/20 15:00 Nacl 0.9% 500 Ml IV DIRECT ROMMEL Propofol 1,000 mg in 100 mls @ 3.3 mls/hr 07/19/20 13:00 07/26/20 06:26 Diprivan 10 Mg/Ml IV 10 mcg/kg/min TITR ROMMEL 6.6 mls/hr Titration Protocol 5 MCG/KG/MIN Insulin Glargine 5 units 07/12/20 17:00 07/25/20 23:01 Lantus SUB-Q 5 units Q24H [facility] Administration Insulin Human Regular 0 unit 07/12/20 17:00 07/26/20 07:29 Humulin R SUB-Q Not Given Q6H [facility] Protocol Lansoprazole 30 mg 07/10/20 10:00 07/26/20 09:41 Prevacid Solutab FEEDTUBE 30 mg QDAY [facility] Administration Methylprednisolone Sodium Succinate 40 mg 07/22/20 14:00 07/26/20 07:29 Solu-Medrol IV Not Given Q8H ROMMEL Midazolam HCl 2 mg 07/08/20 14:33 07/18/20 23:46 Versed IV 2 mg Q10MIN PRN Administration Sedation Multi-Ingred Cream/Lotion/Oil/Oint 1 applic 07/08/20 13:16 Artificial Tears Ophth Oint OU Q4HR PRN Dry Eye(s) Ondansetron HCl 4 mg 07/06/20 13:39 07/08/20 10:44 Zofran IV 4 mg Q8H PRN Administration Nausea And Vomiting Polyethylene Glycol 17 gm 07/16/20 22:00 07/25/20 22:31 Miralax 3350 PO 17 gm QHS ROMMEL Administration Pseudoephedrine/Acetam/Chlorphenir 10 ml 07/07/20 01:17 07/08/20 08:30 Robitussin Ac PO 10 ml Q4H PRN Administration Cough Quetiapine Fumarate 200 mg 07/25/20 22:00 07/26/20 09:42 Seroquel PO 200 mg BID ROMMEL Administration Quetiapine Fumarate 100 mg 07/25/20 22:00 07/26/20 09:42 Seroquel PO 100 mg BID ROMMEL Administration Simple Syrup 15 ml 07/08/20 14:50 Simple Syrup FEEDTUBE PRN PRN Hypoglycemia Simple Syrup 30 ml 07/08/20 14:50 Simple Syrup FEEDTUBE PRN PRN Hypoglycemia Sodium Bicarbonate 325 mg 07/08/20 14:50 Sodium Bicarbonate FEEDTUBE PRN PRN For Clogged Feeding Tube Sodium Chloride 10 ml 07/06/20 14:00 07/26/20 09:42 Sodium Chloride Flush Syringe 10 Ml IV 10 ml BID ROMMEL Administration Sodium Chloride 10 ml 07/06/20 13:39 07/26/20 06:31 Sodium Chloride Flush Syringe 10 Ml IV 10 ml PRN PRN Administration LINE FLUSH Venlafaxine HCl 37.5 mg 07/07/20 10:00 07/26/20 09:42 Effexor PO 37.5 mg DAILY ROMMEL Administration Zinc Sulfate 220 mg 07/08/20 22:00 07/26/20 09:42 Zinc Sulfate PO 220 mg BID ROMMEL Administration Nutrition/Malnutrition Assess - Dietary Evaluation Nutrition/Malnutrition Findings: Nutrition Notes Start: 07/08/20 14:02 Freq: Status: Active Protocol: Document 07/24/20 12:36 LP (Rec: 07/24/20 12:42 LP [id number]) Nutrition Notes Initial or Follow up Reassessment Current Diagnosis Hypertension,Heart Failure Other Pertinent Diagnosis Acute respiratory failure, COVID(+), GERD, Lupus Current Diet Vital AF 1.2 at 55 mL/hr (goal rate) Labs/Tests Reviewed Pertinent Medications Propofol Height 5 ft 5 in Weight 109.8 kg [place] Body Weight (kg) 56.81 BMI 40.2 Weight Status Obese Subjective/Other Information Pt tolerating TF at goal rate. BM July 22. Percent of energy/protein needs met: 96%/87% Burn Absent Trauma Absent GI Symptoms None Current % PO Negligible Minimum of two criteria No physical signs of malnutrition #1 Nutrition Diagnosis Inadequate oral intake Diagnosis Progress(for reassessment Continues documentation) Is patient on ventilator? Yes Is Patient Ambulatory and/or Out of Bed No REE-([facility]-confined to bed) 2077.944 Kcal/Kg value to use for calculation 15 Approximate Energy Requirements Using 1647 kcal/Kg Calculation Used for Recommendations Kcal/kg Additional Notes Pro: greater than 114 g (>2 g/ kg IBW) Fluid: 1ml/kcal or per MD Nutrition Intervention Change Diet Order: Continue TF Nutrition Support: Vital AF at 55 ml/hr Flush 75 ml q4h Kcal 1,584 Protein (gm) 99 Fluid (mL) 1,070 Goal #1 Meet at least 80% of protein and energy needs via TF Anticipated Discharge Needs: Cannot determine at this time Follow-Up By: 07/31/20 Additional Comments Follow for TF Tolerance
--- NOTE | 2020-07-26 13:56 | Progress Note ---
Assessment and Plan 50-year-old female with CHF, asthma, hypertension, lupus was admitted to the hospital with complaints of fever, shortness of breath. Of note, she was seen last week due to an asthma exacerbation when her SARS-CoV-2 PCR and IgG were both negative. She was treated with steroids. She reportedly then went to [place] and tested positive for COVID-19 and was discharged from the hospital on 07/05/2020 readmitted here with: Acute hypoxemic respiratory failure, now on MVS Bilateral pneumonia, left greater than right lungs. COVID-19 infection-SEVERE/CRITICAL . History of congestive heart failure. History of lupus erythematosus. Leukocytosis. Tobacco use disorder. Acute asthma exacerbation. History of hypertension. Obesity Remains critically ill, on going intermittent desaturations. Will monitor closely, no dys-synchrony to suggest need for paralytics. Is in positive fluid balance, will give a dose of furosemide Monitor renal function and hemodynamics closely. Conservative fluid management. BMP in am CXR in am Wean FiO2 for O2 sats>92% -Continue Seroquel to 300mg BID while monitoring for arrhythmias and QTc - continue airborne and contact isolation per facility protocol -Continue to monitor off antibiotics - continue systemic steroids for Asthma / severe COVID infection- start slow taper. - continue Daily assessment for readiness to wean. Ventilatory demands are too high at this time - VAP bundle addressed, aspiration precautions, HOB >40 - continue lung protective strategies - accuchecks with glycemic control per SSI (While critically ill target blood g lucose of 140-180 mg/dL; avoid hypoglycemia) - sedation for target RASS -1 to -2 - avoid nephrotoxins, renally dose all medications - prn analgesia per CPOT score - Maintenance of sleep-wake cycle, avoid delirium - continue enteral nutritional support at goal rate as tolerated - G.I. & VTE prophylaxis( Famotidine and Enoxaparin) - PT/OT/ROM exercises - continue mobility protocols for pressure ulcer prevention as tolerated - continue other care per attending / other consultants - discharge planning ongoing concurrently COVID SPECIFIC INTERVENTIONS -On steroids -Prophylactic anticoagulation based on d-dimer -s/p Remdesivir -s/p Convalescent plasma, was IgG negative -Zinc & Vit C supplementation -Contact and airborne isolation per facility protocols CONDITION: CRITICAL PROGNOSIS: GUARDED CODE STATUS: FULL CODE The high probability of a clinically significant, sudden or life-threatening d eterioration of the [respiratory, cardiovascular & neurologic] system(s) required my full and direct attention, intervention and personal management. The aggregate critical care time was [35] minutes without overlap. Time includes spent on; [x] Data Review and interpretation [x] Patient assessment and monitoring of vital signs [x] Documentation [x] Medication orders and management Subjective Date of service: 07/26/20 Principal diagnosis: Ac hypoxemic resp failure; PNA; COVID-19 infxn; SLE; Asthma exacerbation Interval history: Patient is seen today for: Acute hypoxemic respiratory failure; Bilateral pneumonia; COVID-19 infection; H/O CHF; SLE; Acute asthma exacerbation. HTN; Obesity Seen and examined at bedside; 24hour events reviewed; nursing and respiratory care staff consulted; no adverse overnight events reported to me; resting peacefully in bed; remains on MVS Currently on AC-VC 16/450/+16/ 85% ABG 7.37/62/73/35 Midazolam, Fentanyl and Propofol. She is sedated No dys-synchrony at this time. No N/V/F/C Objective Vital Signs - 12hr 07/26/20 07/26/20 07/26/20 02:00 02:30 02:56 Temperature 99.8 F H Pulse Rate 87 89 Pulse Rate [ Bilateral Throughout] Pulse Rate [ From Monitor] Respiratory 14 14 Rate Respiratory Rate [Bilateral Throughout] Blood Pressure 123/63 122/57 O2 Sat by Pulse 89 89 Oximetry 07/26/20 07/26/20 07/26/20 03:00 03:30 04:00 Temperature Pulse Rate 91 H 90 90 Pulse Rate [ Bilateral Throughout] Pulse Rate [ 90 From Monitor] Respiratory 14 14 15 Rate Respiratory Rate [Bilateral Throughout] Blood Pressure 126/64 125/56 118/60 O2 Sat by Pulse 88 90 89 Oximetry 07/26/20 07/26/20 07/26/20 04:28 04:30 05:00 Temperature Pulse Rate 91 H 90 91 H Pulse Rate [ Bilateral Throughout] Pulse Rate [ From Monitor] Respiratory 15 14 Rate Respiratory Rate [Bilateral Throughout] Blood Pressure 109/55 109/55 103/59 O2 Sat by Pulse 90 90 88 Oximetry 07/26/20 07/26/20 07/26/20 05:30 06:00 06:30 Temperature Pulse Rate 93 H 94 H 92 H Pulse Rate [ Bilateral Throughout] Pulse Rate [ From Monitor] Respiratory 15 15 19 Rate Respiratory Rate [Bilateral Throughout] Blood Pressure 102/64 97/64 107/61 O2 Sat by Pulse 89 89 88 Oximetry 07/26/20 07/26/20 07/26/20 07:00 07:30 08:00 Temperature 100.7 F H Pulse Rate 98 H 93 H 97 H Pulse Rate [ Bilateral Throughout] Pulse Rate [ 95 H From Monitor] Respiratory 25 H 24 23 Rate Respiratory Rate [Bilateral Throughout] Blood Pressure 121/63 100/72 99/72 O2 Sat by Pulse 90 92 88 Oximetry 07/26/20 07/26/20 07/26/20 08:30 08:59 09:00 Temperature Pulse Rate 94 H 108 H 112 H Pulse Rate [ Bilateral Throughout] Pulse Rate [ From Monitor] Respiratory 21 30 H Rate Respiratory Rate [Bilateral Throughout] Blood Pressure 108/69 124/73 133/76 O2 Sat by Pulse 90 92 92 Oximetry 07/26/20 07/26/20 07/26/20 09:01 09:30 10:00 Temperature Pulse Rate 102 H 102 H Pulse Rate [ 110 H Bilateral Throughout] Pulse Rate [ From Monitor] Respiratory 30 H 25 H Rate Respiratory 30 H Rate [Bilateral Throughout] Blood Pressure 130/76 117/75 O2 Sat by Pulse 91 90 Oximetry 07/26/20 07/26/20 07/26/20 10:30 11:00 11:30 Temperature Pulse Rate 99 H 97 H 91 H Pulse Rate [ Bilateral Throughout] Pulse Rate [ From Monitor] Respiratory 15 13 14 Rate Respiratory Rate [Bilateral Throughout] Blood Pressure 124/61 113/69 121/67 O2 Sat by Pulse 87 91 91 Oximetry 07/26/20 07/26/20 11:54 12:00 Temperature 99 F Pulse Rate 92 H 90 Pulse Rate [ Bilateral Throughout] Pulse Rate [ 91 H From Monitor] Respiratory 13 Rate Respiratory Rate [Bilateral Throughout] Blood Pressure 124/64 115/63 O2 Sat by Pulse 91 92 Oximetry Constitutional: appears uncomfortable, other (middle aged obese female with mildly increased respiratory effort at rest on MVS) Eyes: non-icteric ENT: oropharynx moist, other (ETT 23cm YANET) Neck: supple, no lymphadenopathy, no JVD Effort: mildly labored Ascultation: Bilateral: diminished breath sounds, rhonchi (scant ), other (+ mild accesory muscle use) Percussion: Bilateral: not dull Cardiovascular: regular rate and rhythm, other (S1,S2) Gastrointestinal: normoactive bowel sounds, soft, non-tender, non-distended Integumentary: normal Extremities: no cyanosis, no edema, pulses normal, no ischemia or petechiae Neurologic: normal mental status, non-focal exam (moves extremities), pupils equal and round Psychiatric: anxious CBC and BMP: 07/26/20 14:23 07/23/20 04:00 ABG, PT/INR, D-dimer: ABG ABG pH 7.373 pH Units (7.350-7.450) 07/26/20 03:48 POC ABG pCO2 46.1 mmHg (32.0-48.0) 07/22/20 03:26 ABG pCO2 61.6 mm Hg 07/26/20 03:48 POC ABG pO2 54.2 mmHg (83-108) L 07/22/20 03:26 ABG pO2 73.4 mm Hg (80.0-90.0) L 07/26/20 03:48 POC ABG HCO3 30.0 07/22/20 03:26 ABG O2 Saturation 96.0 % (95.0-99.0) 07/26/20 03:48 PT/INR, D-dimer D-Dimer 826.36 ng/mlDDU (0-234) H 07/13/20 07:20 Abnormal lab findings: Abnormal Labs 07/06/20 07/06/20 07/07/20 05:24 17:16 04:50 WBC 13.5 H 12.7 H RBC Hgb Lymph % (Auto) Lymph # (Auto) Seg Neuts % (Manual) 86.0 H 87.0 H Lymphocytes % (Manual) 6.0 L 9.0 L Seg Neutrophils # Seg Neutrophils # Man 11.6 H 11.0 H Lymphocytes # (Manual) 0.8 L 1.1 L D-Dimer ABG pH POC ABG pCO2 POC ABG pO2 ABG pO2 ABG HCO3 ABG O2 Saturation ABG Base Excess ABG Hemoglobin ABG Oxyhemoglobin ABG Sodium ABG Potassium ABG Chloride ABG Glucose Oxyhemoglobin Chloride Carbon Dioxide BUN Creatinine Glucose POC Glucose Calcium Ferritin Lactate Dehydrogenase 242 H C-Reactive Protein 7.30 H Total Protein Albumin Arterial Blood Glucose Arterial Blood Ionized Calcium Coronavirus (PCR) SARS-CoV-2 IgG Ab 07/07/20 07/07/20 07/07/20 04:50 14:22 14:22 WBC RBC Hgb Lymph % (Auto) Lymph # (Auto) Seg Neuts % (Manual) Lymphocytes % (Manual) Seg Neutrophils # Seg Neutrophils # Man Lymphocytes # (Manual) D-Dimer ABG pH POC ABG pCO2 POC ABG pO2 ABG pO2 ABG HCO3 ABG O2 Saturation ABG Base Excess ABG Hemoglobin ABG Oxyhemoglobin ABG Sodium ABG Potassium ABG Chloride ABG Glucose Oxyhemoglobin Chloride Carbon Dioxide BUN 18 H Creatinine Glucose 138 H POC Glucose Calcium Ferritin 228.2 H Lactate Dehydrogenase 277 H C-Reactive Protein Total Protein 5.9 L Albumin 3.4 L Arterial Blood Glucose Arterial Blood Ionized Calcium Coronavirus (PCR) SARS-CoV-2 IgG Ab 07/08/20 07/08/20 07/08/20 11:18 12:57 16:13 WBC RBC Hgb Lymph % (Auto) Lymph # (Auto) Seg Neuts % (Manual) Lymphocytes % (Manual) Seg Neutrophils # Seg Neutrophils # Man Lymphocytes # (Manual) D-Dimer ABG pH POC ABG pCO2 POC ABG pO2 ABG pO2 39.3 L* ABG HCO3 ABG O2 Saturation 76.8 L ABG Base Excess ABG Hemoglobin ABG Oxyhemoglobin ABG Sodium ABG Potassium ABG Chloride ABG Glucose Oxyhemoglobin 75.3 L Chloride Carbon Dioxide 20 L D BUN Creatinine Glucose 135 H POC Glucose 106 H Calcium 8.0 L Ferritin Lactate Dehydrogenase C-Reactive Protein Total Protein Albumin Arterial Blood Glucose Arterial Blood Ionized Calcium Coronavirus (PCR) SARS-CoV-2 IgG Ab 07/08/20 07/08/20 07/09/20 17:04 18:45 04:00 WBC 15.6 H RBC Hgb Lymph % (Auto) 4.7 L Lymph # (Auto) 0.7 L Seg Neuts % (Manual) Lymphocytes % (Manual) Seg Neutrophils # 14.2 H Seg Neutrophils # Man Lymphocytes # (Manual) D-Dimer ABG pH POC ABG pCO2 POC ABG pO2 ABG pO2 181.8 H ABG HCO3 ABG O2 Saturation 99.1 H ABG Base Excess ABG Hemoglobin 11.4 L ABG Oxyhemoglobin ABG Sodium ABG Potassium ABG Chloride ABG Glucose Oxyhemoglobin Chloride Carbon Dioxide BUN Creatinine Glucose POC Glucose 117 H Calcium Ferritin Lactate Dehydrogenase C-Reactive Protein Total Protein Albumin Arterial Blood Glucose Arterial Blood Ionized Calcium Coronavirus (PCR) SARS-CoV-2 IgG Ab 07/09/20 07/09/20 07/09/20 04:00 04:00 04:49 WBC RBC Hgb Lymph % (Auto) Lymph # (Auto) Seg Neuts % (Manual) Lymphocytes % (Manual) Seg Neutrophils # Seg Neutrophils # Man Lymphocytes # (Manual) D-Dimer ABG pH POC ABG pCO2 POC ABG pO2 ABG pO2 ABG HCO3 26.2 H ABG O2 Saturation ABG Base Excess ABG Hemoglobin 11.2 L ABG Oxyhemoglobin ABG Sodium ABG Potassium ABG Chloride ABG Glucose Oxyhemoglobin 94.9 L Chloride Carbon Dioxide BUN Creatinine Glucose 158 H POC Glucose Calcium 8.2 L Ferritin 320.0 H Lactate Dehydrogenase 391 H C-Reactive Protein 9.50 H Total Protein 5.9 L Albumin 3.2 L Arterial Blood Glucose Arterial Blood Ionized Calcium Coronavirus (PCR) SARS-CoV-2 IgG Ab 07/09/20 07/09/20 07/09/20 11:56 17:49 23:39 WBC RBC Hgb Lymph % (Auto) Lymph # (Auto) Seg Neuts % (Manual) Lymphocytes % (Manual) Seg Neutrophils # Seg Neutrophils # Man Lymphocytes # (Manual) D-Dimer ABG pH POC ABG pCO2 POC ABG pO2 ABG pO2 ABG HCO3 ABG O2 Saturation ABG Base Excess ABG Hemoglobin ABG Oxyhemoglobin ABG Sodium ABG Potassium ABG Chloride ABG Glucose Oxyhemoglobin Chloride Carbon Dioxide BUN Creatinine Glucose POC Glucose 156 H 119 H 145 H Calcium Ferritin Lactate Dehydrogenase C-Reactive Protein Total Protein Albumin Arterial Blood Glucose Arterial Blood Ionized Calcium Coronavirus (PCR) SARS-CoV-2 IgG Ab 07/10/20 07/10/20 07/10/20 03:32 05:26 11:22 WBC RBC Hgb Lymph % (Auto) Lymph # (Auto) Seg Neuts % (Manual) Lymphocytes % (Manual) Seg Neutrophils # Seg Neutrophils # Man Lymphocytes # (Manual) D-Dimer ABG pH POC ABG pCO2 POC ABG pO2 ABG pO2 75.7 L ABG HCO3 27.5 H ABG O2 Saturation ABG Base Excess ABG Hemoglobin 9.3 L ABG Oxyhemoglobin ABG Sodium ABG Potassium ABG Chloride ABG Glucose Oxyhemoglobin 94.7 L Chloride Carbon Dioxide BUN Creatinine Glucose POC Glucose 156 H 148 H Calcium Ferritin Lactate Dehydrogenase C-Reactive Protein Total Protein Albumin Arterial Blood Glucose Arterial Blood Ionized Calcium Coronavirus (PCR) SARS-CoV-2 IgG Ab 07/10/20 07/10/20 07/10/20 12:10 12:10 18:20 WBC 14.1 H RBC 3.33 L Hgb 9.9 L Lymph % (Auto) Lymph # (Auto) Seg Neuts % (Manual) 89.0 H Lymphocytes % (Manual) 8.0 L Seg Neutrophils # Seg Neutrophils # Man 12.5 H Lymphocytes # (Manual) 1.1 L D-Dimer ABG pH POC ABG pCO2 POC ABG pO2 ABG pO2 ABG HCO3 ABG O2 Saturation ABG Base Excess ABG Hemoglobin ABG Oxyhemoglobin ABG Sodium ABG Potassium ABG Chloride ABG Glucose Oxyhemoglobin Chloride Carbon Dioxide BUN 21 H Creatinine Glucose 154 H POC Glucose 181 H Calcium 8.0 L Ferritin Lactate Dehydrogenase C-Reactive Protein Total Protein 5.4 L Albumin 3.0 L Arterial Blood Glucose Arterial Blood Ionized Calcium Coronavirus (PCR) SARS-CoV-2 IgG Ab 07/10/20 07/11/20 07/11/20 23:51 04:05 05:43 WBC RBC Hgb Lymph % (Auto) Lymph # (Auto) Seg Neuts % (Manual) Lymphocytes % (Manual) Seg Neutrophils # Seg Neutrophils # Man Lymphocytes # (Manual) D-Dimer ABG pH 7.348 L POC ABG pCO2 POC ABG pO2 ABG pO2 93.6 H ABG HCO3 28.5 H ABG O2 Saturation ABG Base Excess ABG Hemoglobin 10.1 L ABG Oxyhemoglobin ABG Sodium ABG Potassium ABG Chloride ABG Glucose Oxyhemoglobin Chloride Carbon Dioxide BUN Creatinine Glucose POC Glucose 116 H 132 H Calcium Ferritin Lactate Dehydrogenase C-Reactive Protein Total Protein Albumin Arterial Blood Glucose Arterial Blood Ionized Calcium Coronavirus (PCR) SARS-CoV-2 IgG Ab 07/11/20 07/11/20 07/11/20 09:11 09:11 09:11 WBC 15.8 H RBC 3.44 L Hgb Lymph % (Auto) Lymph # (Auto) Seg Neuts % (Manual) 92.0 H Lymphocytes % (Manual) 4.0 L Seg Neutrophils # Seg Neutrophils # Man 14.5 H Lymphocytes # (Manual) 0.6 L D-Dimer 360.61 H ABG pH POC ABG pCO2 POC ABG pO2 ABG pO2 ABG HCO3 ABG O2 Saturation ABG Base Excess ABG Hemoglobin ABG Oxyhemoglobin ABG Sodium ABG Potassium ABG Chloride ABG Glucose Oxyhemoglobin Chloride 107.1 H Carbon Dioxide BUN 22 H Creatinine Glucose 149 H POC Glucose Calcium 7.8 L Ferritin Lactate Dehydrogenase 483 H C-Reactive Protein 2.30 H Total Protein 4.9 L Albumin 3.0 L Arterial Blood Glucose Arterial Blood Ionized Calcium Coronavirus (PCR) SARS-CoV-2 IgG Ab 07/11/20 07/11/20 07/11/20 09:11 12:16 17:55 WBC RBC Hgb Lymph % (Auto) Lymph # (Auto) Seg Neuts % (Manual) Lymphocytes % (Manual) Seg Neutrophils # Seg Neutrophils # Man Lymphocytes # (Manual) D-Dimer ABG pH POC ABG pCO2 POC ABG pO2 ABG pO2 ABG HCO3 ABG O2 Saturation ABG Base Excess ABG Hemoglobin ABG Oxyhemoglobin ABG Sodium ABG Potassium ABG Chloride ABG Glucose Oxyhemoglobin Chloride Carbon Dioxide BUN Creatinine Glucose POC Glucose 157 H 166 H Calcium Ferritin 371.2 H Lactate Dehydrogenase C-Reactive Protein Total Protein Albumin Arterial Blood Glucose Arterial Blood Ionized Calcium Coronavirus (PCR) SARS-CoV-2 IgG Ab 07/12/20 07/12/20 07/12/20 00:32 04:00 04:00 WBC RBC 3.52 L Hgb Lymph % (Auto) Lymph # (Auto) Seg Neuts % (Manual) 90.0 H Lymphocytes % (Manual) 4.0 L Seg Neutrophils # Seg Neutrophils # Man 9.5 H Lymphocytes # (Manual) 0.4 L D-Dimer ABG pH POC ABG pCO2 POC ABG pO2 ABG pO2 ABG HCO3 ABG O2 Saturation ABG Base Excess ABG Hemoglobin ABG Oxyhemoglobin ABG Sodium ABG Potassium ABG Chloride ABG Glucose Oxyhemoglobin Chloride Carbon Dioxide 31 H BUN 21 H Creatinine Glucose 175 H POC Glucose 178 H Calcium 8.0 L Ferritin Lactate Dehydrogenase C-Reactive Protein Total Protein 5.4 L Albumin 3.0 L Arterial Blood Glucose Arterial Blood Ionized Calcium Coronavirus (PCR) SARS-CoV-2 IgG Ab 07/12/20 07/12/20 07/12/20 04:01 05:47 12:09 WBC RBC Hgb Lymph % (Auto) Lymph # (Auto) Seg Neuts % (Manual) Lymphocytes % (Manual) Seg Neutrophils # Seg Neutrophils # Man Lymphocytes # (Manual) D-Dimer ABG pH 7.456 H POC ABG pCO2 POC ABG pO2 ABG pO2 ABG HCO3 ABG O2 Saturation ABG Base Excess ABG Hemoglobin 10.6 L ABG Oxyhemoglobin ABG Sodium ABG Potassium ABG Chloride ABG Glucose 177 H Oxyhemoglobin Chloride Carbon Dioxide BUN Creatinine Glucose POC Glucose 185 H 227 H Calcium Ferritin Lactate Dehydrogenase C-Reactive Protein Total Protein Albumin Arterial Blood Glucose 177 H Arterial Blood Ionized Calcium 4.5 L Coronavirus (PCR) SARS-CoV-2 IgG Ab 07/12/20 07/12/20 07/13/20 17:34 23:57 05:06 WBC RBC Hgb Lymph % (Auto) Lymph # (Auto) Seg Neuts % (Manual) Lymphocytes % (Manual) Seg Neutrophils # Seg Neutrophils # Man Lymphocytes # (Manual) D-Dimer ABG pH POC ABG pCO2 POC ABG pO2 ABG pO2 ABG HCO3 ABG O2 Saturation ABG Base Excess ABG Hemoglobin ABG Oxyhemoglobin ABG Sodium ABG Potassium ABG Chloride ABG Glucose Oxyhemoglobin Chloride Carbon Dioxide BUN Creatinine Glucose POC Glucose 202 H 163 H 166 H Calcium Ferritin Lactate Dehydrogenase C-Reactive Protein Total Protein Albumin Arterial Blood Glucose Arterial Blood Ionized Calcium Coronavirus (PCR) SARS-CoV-2 IgG Ab 07/13/20 07/13/20 07/13/20 07:20 07:20 07:20 WBC 20.5 H RBC Hgb Lymph % (Auto) Lymph # (Auto) Seg Neuts % (Manual) 93.0 H Lymphocytes % (Manual) 3.0 L Seg Neutrophils # Seg Neutrophils # Man 19.1 H Lymphocytes # (Manual) 0.6 L D-Dimer 826.36 H ABG pH POC ABG pCO2 POC ABG pO2 ABG pO2 ABG HCO3 ABG O2 Saturation ABG Base Excess ABG Hemoglobin ABG Oxyhemoglobin ABG Sodium ABG Potassium ABG Chloride ABG Glucose Oxyhemoglobin Chloride Carbon Dioxide 31 H BUN 25 H Creatinine Glucose 163 H POC Glucose Calcium 8.1 L Ferritin Lactate Dehydrogenase 512 H C-Reactive Protein 1.80 H Total Protein 5.8 L Albumin 3.2 L Arterial Blood Glucose Arterial Blood Ionized Calcium Coronavirus (PCR) SARS-CoV-2 IgG Ab 07/13/20 07/13/20 07/13/20 07:20 11:37 17:20 WBC RBC Hgb Lymph % (Auto) Lymph # (Auto) Seg Neuts % (Manual) Lymphocytes % (Manual) Seg Neutrophils # Seg Neutrophils # Man Lymphocytes # (Manual) D-Dimer ABG pH POC ABG pCO2 POC ABG pO2 ABG pO2 ABG HCO3 ABG O2 Saturation ABG Base Excess ABG Hemoglobin ABG Oxyhemoglobin ABG Sodium ABG Potassium ABG Chloride ABG Glucose Oxyhemoglobin Chloride Carbon Dioxide BUN Creatinine Glucose POC Glucose 232 H 210 H Calcium Ferritin 219.8 H Lactate Dehydrogenase C-Reactive Protein Total Protein Albumin Arterial Blood Glucose Arterial Blood Ionized Calcium Coronavirus (PCR) SARS-CoV-2 IgG Ab 07/13/20 07/13/20 07/14/20 23:57 Unknown 05:22 WBC RBC Hgb Lymph % (Auto) Lymph # (Auto) Seg Neuts % (Manual) Lymphocytes % (Manual) Seg Neutrophils # Seg Neutrophils # Man Lymphocytes # (Manual) D-Dimer ABG pH 7.341 L POC ABG pCO2 POC ABG pO2 133.0 H ABG pO2 56.5 L ABG HCO3 29.7 H ABG O2 Saturation 89.3 L ABG Base Excess ABG Hemoglobin 11.0 L ABG Oxyhemoglobin ABG Sodium ABG Potassium ABG Chloride ABG Glucose 207 H Oxyhemoglobin 87.7 L Chloride Carbon Dioxide BUN Creatinine Glucose POC Glucose 190 H Calcium Ferritin Lactate Dehydrogenase C-Reactive Protein Total Protein Albumin Arterial Blood Glucose 207 H Arterial Blood Ionized Calcium 4.5 L Coronavirus (PCR) SARS-CoV-2 IgG Ab 07/14/20 07/14/20 07/14/20 05:54 11:16 17:50 WBC RBC Hgb Lymph % (Auto) Lymph # (Auto) Seg Neuts % (Manual) Lymphocytes % (Manual) Seg Neutrophils # Seg Neutrophils # Man Lymphocytes # (Manual) D-Dimer ABG pH POC ABG pCO2 POC ABG pO2 ABG pO2 ABG HCO3 ABG O2 Saturation ABG Base Excess ABG Hemoglobin ABG Oxyhemoglobin ABG Sodium ABG Potassium ABG Chloride ABG Glucose Oxyhemoglobin Chloride Carbon Dioxide BUN Creatinine Glucose POC Glucose 206 H 196 H 205 H Calcium Ferritin Lactate Dehydrogenase C-Reactive Protein Total Protein Albumin Arterial Blood Glucose Arterial Blood Ionized Calcium Coronavirus (PCR) SARS-CoV-2 IgG Ab 07/14/20 07/15/2007/15/20 23:28 03:16 06:12 WBC RBC Hgb Lymph % (Auto) Lymph # (Auto) Seg Neuts % (Manual) Lymphocytes % (Manual) Seg Neutrophils # Seg Neutrophils # Man Lymphocytes # (Manual) D-Dimer ABG pH POC ABG pCO2 49.2 H POC ABG pO2 120.3 H ABG pO2 ABG HCO3 ABG O2 Saturation ABG Base Excess ABG Hemoglobin 9.5 L ABG Oxyhemoglobin ABG Sodium ABG Potassium ABG Chloride ABG Glucose 148 H Oxyhemoglobin Chloride Carbon Dioxide BUN Creatinine Glucose POC Glucose 160 H 178 H Calcium Ferritin Lactate Dehydrogenase C-Reactive Protein Total Protein Albumin Arterial Blood Glucose 148 H Arterial Blood Ionized Calcium Coronavirus (PCR) SARS-CoV-2 IgG Ab 07/15/20 07/15/20 07/15/20 09:00 12:32 14:30 WBC RBC Hgb Lymph % (Auto) Lymph # (Auto) Seg Neuts % (Manual) Lymphocytes % (Manual) Seg Neutrophils # Seg Neutrophils # Man Lymphocytes # (Manual) D-Dimer ABG pH POC ABG pCO2 POC ABG pO2 ABG pO2 ABG HCO3 ABG O2 Saturation ABG Base Excess ABG Hemoglobin ABG Oxyhemoglobin ABG Sodium ABG Potassium ABG Chloride ABG Glucose Oxyhemoglobin Chloride Carbon Dioxide BUN Creatinine Glucose POC Glucose 173 H Calcium Ferritin Lactate Dehydrogenase 531 H C-Reactive Protein Total Protein Albumin Arterial Blood Glucose Arterial Blood Ionized Calcium Coronavirus (PCR) SARS-CoV-2 IgG Ab Reactive A 07/15/20 07/15/20 07/16/20 18:24 23:35 04:03 WBC RBC Hgb Lymph % (Auto) Lymph # (Auto) Seg Neuts % (Manual) Lymphocytes % (Manual) Seg Neutrophils # Seg Neutrophils # Man Lymphocytes # (Manual) D-Dimer ABG pH POC ABG pCO2 POC ABG pO2 ABG pO2 72.7 L ABG HCO3 35.5 H ABG O2 Saturation ABG Base Excess 9.4 H ABG Hemoglobin 10.6 L ABG Oxyhemoglobin ABG Sodium ABG Potassium ABG Chloride ABG Glucose Oxyhemoglobin 93.6 L Chloride Carbon Dioxide BUN Creatinine Glucose POC Glucose 173 H 181 H Calcium Ferritin Lactate Dehydrogenase C-Reactive Protein Total Protein Albumin Arterial Blood Glucose Arterial Blood Ionized Calcium Coronavirus (PCR) SARS-CoV-2 IgG Ab 07/16/20 07/16/20 07/16/20 05:35 09:00 09:00 WBC 16.5 H RBC 3.59 L Hgb Lymph % (Auto) Lymph # (Auto) Seg Neuts % (Manual) 96.0 H Lymphocytes % (Manual) 3.0 L Seg Neutrophils # Seg Neutrophils # Man 15.8 H Lymphocytes # (Manual) 0.5 L D-Dimer ABG pH POC ABG pCO2 POC ABG pO2 ABG pO2 ABG HCO3 ABG O2 Saturation ABG Base Excess ABG Hemoglobin ABG Oxyhemoglobin ABG Sodium ABG Potassium ABG Chloride ABG Glucose Oxyhemoglobin Chloride Carbon Dioxide 39 H D BUN 25 H Creatinine 0.4 L Glucose 167 H POC Glucose 129 H Calcium 8.3 L Ferritin Lactate Dehydrogenase C-Reactive Protein Total Protein Albumin Arterial Blood Glucose Arterial Blood Ionized Calcium Coronavirus (PCR) SARS-CoV-2 IgG Ab 07/16/20 07/16/20 07/17/20 12:32 18:28 00:09 WBC RBC Hgb Lymph % (Auto) Lymph # (Auto) Seg Neuts % (Manual) Lymphocytes % (Manual) Seg Neutrophils # Seg Neutrophils # Man Lymphocytes # (Manual) D-Dimer ABG pH POC ABG pCO2 POC ABG pO2 ABG pO2 ABG HCO3 ABG O2 Saturation ABG Base Excess ABG Hemoglobin ABG Oxyhemoglobin ABG Sodium ABG Potassium ABG Chloride ABG Glucose Oxyhemoglobin Chloride Carbon Dioxide BUN Creatinine Glucose POC Glucose 187 H 174 H 184 H Calcium Ferritin Lactate Dehydrogenase C-Reactive Protein Total Protein Albumin Arterial Blood Glucose Arterial Blood Ionized Calcium Coronavirus (PCR) SARS-CoV-2 IgG Ab 07/17/20 07/17/20 07/17/20 04:30 05:47 13:03 WBC RBC Hgb Lymph % (Auto) Lymph # (Auto) Seg Neuts % (Manual) Lymphocytes % (Manual) Seg Neutrophils # Seg Neutrophils # Man Lymphocytes # (Manual) D-Dimer ABG pH POC ABG pCO2 POC ABG pO2 ABG pO2 ABG HCO3 38.1 H ABG O2 Saturation ABG Base Excess 11.3 H ABG Hemoglobin 10.5 L ABG Oxyhemoglobin ABG Sodium ABG Potassium ABG Chloride ABG Glucose Oxyhemoglobin Chloride Carbon Dioxide BUN Creatinine Glucose POC Glucose 135 H 210 H Calcium Ferritin Lactate Dehydrogenase C-Reactive Protein Total Protein Albumin Arterial Blood Glucose Arterial Blood Ionized Calcium Coronavirus (PCR) SARS-CoV-2 IgG Ab 07/17/20 07/17/20 07/18/20 16:50 23:39 04:01 WBC RBC Hgb Lymph % (Auto) Lymph # (Auto) Seg Neuts % (Manual) Lymphocytes % (Manual) Seg Neutrophils # Seg Neutrophils # Man Lymphocytes # (Manual) D-Dimer ABG pH POC ABG pCO2 56.8 H POC ABG pO2 61.9 L ABG pO2 ABG HCO3 ABG O2 Saturation ABG Base Excess ABG Hemoglobin 11.7 L ABG Oxyhemoglobin ABG Sodium 134.2 L ABG Potassium 4.7 H ABG Chloride 97.0 L ABG Glucose 173 H Oxyhemoglobin Chloride Carbon Dioxide BUN Creatinine Glucose POC Glucose 193 H 163 H Calcium Ferritin Lactate Dehydrogenase C-Reactive Protein Total Protein Albumin Arterial Blood Glucose 173 H Arterial Blood Ionized Calcium Coronavirus (PCR) SARS-CoV-2 IgG Ab 07/18/20 07/18/20 07/18/20 05:41 12:03 17:26 WBC RBC Hgb Lymph % (Auto) Lymph # (Auto) Seg Neuts % (Manual) Lymphocytes % (Manual) Seg Neutrophils # Seg Neutrophils # Man Lymphocytes # (Manual) D-Dimer ABG pH POC ABG pCO2 POC ABG pO2 ABG pO2 ABG HCO3 ABG O2 Saturation ABG Base Excess ABG Hemoglobin ABG Oxyhemoglobin ABG Sodium ABG Potassium ABG Chloride ABG Glucose Oxyhemoglobin Chloride Carbon Dioxide BUN Creatinine Glucose POC Glucose 153 H 177 H 160 H Calcium Ferritin Lactate Dehydrogenase C-Reactive Protein Total Protein Albumin Arterial Blood Glucose Arterial Blood Ionized Calcium Coronavirus (PCR) SARS-CoV-2 IgG Ab 07/18/20 07/19/20 07/19/20 23:58 04:15 05:05 WBC RBC Hgb Lymph % (Auto) Lymph # (Auto) Seg Neuts % (Manual) Lymphocytes % (Manual) Seg Neutrophils # Seg Neutrophils # Man Lymphocytes # (Manual) D-Dimer ABG pH 7.465 H POC ABG pCO2 49.1 H POC ABG pO2 49.4 L ABG pO2 ABG HCO3 ABG O2 Saturation ABG Base Excess ABG Hemoglobin 11.6 L ABG Oxyhemoglobin ABG Sodium 132.3 L ABG Potassium ABG Chloride 97.0 L ABG Glucose 148 H Oxyhemoglobin Chloride Carbon Dioxide BUN Creatinine Glucose POC Glucose 144 H 117 H Calcium Ferritin Lactate Dehydrogenase C-Reactive Protein Total Protein Albumin Arterial Blood Glucose 148 H Arterial Blood Ionized Calcium Coronavirus (PCR) SARS-CoV-2 IgG Ab 07/19/20 07/19/20 07/19/20 08:30 08:30 13:21 WBC 17.2 H RBC 3.59 L Hgb Lymph % (Auto) Lymph # (Auto) Seg Neuts % (Manual) Lymphocytes % (Manual) Seg Neutrophils # Seg Neutrophils # Man Lymphocytes # (Manual) D-Dimer ABG pH POC ABG pCO2 POC ABG pO2 ABG pO2 ABG HCO3 ABG O2 Saturation ABG Base Excess ABG Hemoglobin ABG Oxyhemoglobin ABG Sodium ABG Potassium ABG Chloride ABG Glucose Oxyhemoglobin Chloride 95.7 L Carbon Dioxide 37 H BUN 20 H Creatinine 0.4 L Glucose 125 H POC Glucose 137 H Calcium 8.1 L Ferritin Lactate Dehydrogenase C-Reactive Protein Total Protein Albumin Arterial Blood Glucose Arterial Blood Ionized Calcium Coronavirus (PCR) SARS-CoV-2 IgG Ab 07/19/20 07/19/20 07/20/20 16:29 17:28 00:25 WBC RBC Hgb Lymph % (Auto) Lymph # (Auto) Seg Neuts % (Manual) Lymphocytes % (Manual) Seg Neutrophils # Seg Neutrophils # Man Lymphocytes # (Manual) D-Dimer ABG pH POC ABG pCO2 53.4 H POC ABG pO2 71.0 L ABG pO2 ABG HCO3 ABG O2 Saturation ABG Base Excess ABG Hemoglobin 11.2 L ABG Oxyhemoglobin 93.6 L ABG Sodium 130.9 L ABG Potassium ABG Chloride 95.0 L ABG Glucose 188 H Oxyhemoglobin Chloride Carbon Dioxide BUN Creatinine Glucose POC Glucose 174 H 188 H Calcium Ferritin Lactate Dehydrogenase C-Reactive Protein Total Protein Albumin Arterial Blood Glucose 188 H Arterial Blood Ionized Calcium 4.4 L Coronavirus (PCR) SARS-CoV-2 IgG Ab 07/20/20 07/20/20 07/20/20 04:14 05:23 12:12 WBC RBC Hgb Lymph % (Auto) Lymph # (Auto) Seg Neuts % (Manual) Lymphocytes % (Manual) Seg Neutrophils # Seg Neutrophils # Man Lymphocytes # (Manual) D-Dimer ABG pH POC ABG pCO2 52.7 H POC ABG pO2 59.5 L ABG pO2 ABG HCO3 ABG O2 Saturation ABG Base Excess ABG Hemoglobin 10.6 L ABG Oxyhemoglobin ABG Sodium 134.4 L ABG Potassium ABG Chloride ABG Glucose 176 H Oxyhemoglobin Chloride Carbon Dioxide BUN Creatinine Glucose POC Glucose 212 H 190 H Calcium Ferritin Lactate Dehydrogenase C-Reactive Protein Total Protein Albumin Arterial Blood Glucose 176 H Arterial Blood Ionized Calcium 4.5 L Coronavirus (PCR) SARS-CoV-2 IgG Ab 07/20/20 07/21/20 07/21/20 16:59 00:01 04:30 WBC RBC Hgb Lymph % (Auto) Lymph # (Auto) Seg Neuts % (Manual) Lymphocytes % (Manual) Seg Neutrophils # Seg Neutrophils # Man Lymphocytes # (Manual) D-Dimer ABG pH 7.468 H POC ABG pCO2 POC ABG pO2 63.3 L ABG pO2 ABG HCO3 ABG O2 Saturation ABG Base Excess ABG Hemoglobin 11 L ABG Oxyhemoglobin ABG Sodium 135.0 L ABG Potassium ABG Chloride ABG Glucose 204 H Oxyhemoglobin Chloride Carbon Dioxide BUN Creatinine Glucose POC Glucose 201 H 177 H Calcium Ferritin Lactate Dehydrogenase C-Reactive Protein Total Protein Albumin Arterial Blood Glucose 204 H Arterial Blood Ionized Calcium 4.5 L Coronavirus (PCR) SARS-CoV-2 IgG Ab 07/21/20 07/21/20 07/21/20 05:26 11:50 17:16 WBC RBC Hgb Lymph % (Auto) Lymph # (Auto) Seg Neuts % (Manual) Lymphocytes % (Manual) Seg Neutrophils # Seg Neutrophils # Man Lymphocytes # (Manual) D-Dimer ABG pH POC ABG pCO2 POC ABG pO2 ABG pO2 ABG HCO3 ABG O2 Saturation ABG Base Excess ABG Hemoglobin ABG Oxyhemoglobin ABG Sodium ABG Potassium ABG Chloride ABG Glucose Oxyhemoglobin Chloride Carbon Dioxide BUN Creatinine Glucose POC Glucose 175 H 157 H 148 H Calcium Ferritin Lactate Dehydrogenase C-Reactive Protein Total Protein Albumin Arterial Blood Glucose Arterial Blood Ionized Calcium Coronavirus (PCR) SARS-CoV-2 IgG Ab 07/22/20 07/22/20 07/22/20 00:01 03:26 05:16 WBC RBC Hgb Lymph % (Auto) Lymph # (Auto) Seg Neuts % (Manual) Lymphocytes % (Manual) Seg Neutrophils # Seg Neutrophils # Man Lymphocytes # (Manual) D-Dimer ABG pH POC ABG pCO2 POC ABG pO2 54.2 L ABG pO2 ABG HCO3 ABG O2 Saturation ABG Base Excess ABG Hemoglobin 10.9 L ABG Oxyhemoglobin ABG Sodium 133.7 L ABG Potassium ABG Chloride ABG Glucose 217 H Oxyhemoglobin Chloride Carbon Dioxide BUN Creatinine Glucose POC Glucose 172 H 182 H Calcium Ferritin Lactate Dehydrogenase C-Reactive Protein Total Protein Albumin Arterial Blood Glucose 217 H Arterial Blood Ionized Calcium 4.5 L Coronavirus (PCR) SARS-CoV-2 IgG Ab 07/22/20 07/22/20 07/23/20 11:43 17:08 04:00 WBC 11.6 H RBC 3.54 L Hgb Lymph % (Auto) Lymph # (Auto) Seg Neuts % (Manual) 94.0 H Lymphocytes % (Manual) 5.0 L Seg Neutrophils # Seg Neutrophils # Man 10.9 H Lymphocytes # (Manual) 0.6 L D-Dimer ABG pH POC ABG pCO2 POC ABG pO2 ABG pO2 ABG HCO3 ABG O2 Saturation ABG Base Excess ABG Hemoglobin ABG Oxyhemoglobin ABG Sodium ABG Potassium ABG Chloride ABG Glucose Oxyhemoglobin Chloride Carbon Dioxide BUN Creatinine Glucose POC Glucose 159 H 163 H Calcium Ferritin Lactate Dehydrogenase C-Reactive Protein Total Protein Albumin Arterial Blood Glucose Arterial Blood Ionized Calcium Coronavirus (PCR) SARS-CoV-2 IgG Ab 07/23/20 07/23/20 07/23/20 04:00 04:53 04:54 WBC RBC Hgb Lymph % (Auto) Lymph # (Auto) Seg Neuts % (Manual) Lymphocytes % (Manual) Seg Neutrophils # Seg Neutrophils # Man Lymphocytes # (Manual) D-Dimer ABG pH 7.453 H POC ABG pCO2 POC ABG pO2 ABG pO2 ABG HCO3 32.4 H ABG O2 Saturation ABG Base Excess 7.5 H ABG Hemoglobin 10.7 L ABG Oxyhemoglobin ABG Sodium ABG Potassium ABG Chloride ABG Glucose Oxyhemoglobin Chloride Carbon Dioxide 35 H BUN Creatinine 0.4 L Glucose 112 H POC Glucose 169 H Calcium 8.2 L Ferritin Lactate Dehydrogenase C-Reactive Protein Total Protein Albumin Arterial Blood Glucose Arterial Blood Ionized Calcium Coronavirus (PCR) SARS-CoV-2 IgG Ab 07/23/20 07/23/20 07/23/20 11:50 23:19 Unknown WBC RBC Hgb Lymph % (Auto) Lymph # (Auto) Seg Neuts % (Manual) Lymphocytes % (Manual) Seg Neutrophils # Seg Neutrophils # Man Lymphocytes # (Manual) D-Dimer ABG pH POC ABG pCO2 POC ABG pO2 ABG pO2 ABG HCO3 ABG O2 Saturation ABG Base Excess ABG Hemoglobin ABG Oxyhemoglobin ABG Sodium ABG Potassium ABG Chloride ABG Glucose Oxyhemoglobin Chloride Carbon Dioxide BUN Creatinine Glucose POC Glucose 118 H 168 H Calcium Ferritin Lactate Dehydrogenase C-Reactive Protein Total Protein Albumin Arterial Blood Glucose Arterial Blood Ionized Calcium Coronavirus (PCR) Positive A SARS-CoV-2 IgG Ab 07/24/20 07/24/20 07/24/20 04:11 05:37 11:42 WBC RBC Hgb Lymph % (Auto) Lymph # (Auto) Seg Neuts % (Manual) Lymphocytes % (Manual) Seg Neutrophils # Seg Neutrophils # Man Lymphocytes # (Manual) D-Dimer ABG pH POC ABG pCO2 POC ABG pO2 ABG pO2 54.4 L ABG HCO3 34.3 H ABG O2 Saturation 89.0 L ABG Base Excess 8.5 H ABG Hemoglobin 11.0 L ABG Oxyhemoglobin ABG Sodium ABG Potassium ABG Chloride ABG Glucose Oxyhemoglobin 87.0 L Chloride Carbon Dioxide BUN Creatinine Glucose POC Glucose 115 H 166 H Calcium Ferritin Lactate Dehydrogenase C-Reactive Protein Total Protein Albumin Arterial Blood Glucose Arterial Blood Ionized Calcium Coronavirus (PCR) SARS-CoV-2 IgG Ab 07/24/20 07/24/20 07/25/20 17:39 23:38 03:53 WBC RBC Hgb Lymph % (Auto) Lymph # (Auto) Seg Neuts % (Manual) Lymphocytes % (Manual) Seg Neutrophils # Seg Neutrophils # Man Lymphocytes # (Manual) D-Dimer ABG pH POC ABG pCO2 POC ABG pO2 ABG pO2 175.9 H ABG HCO3 34.0 H ABG O2 Saturation 99.1 H ABG Base Excess 8.2 H ABG Hemoglobin 10.6 L ABG Oxyhemoglobin ABG Sodium ABG Potassium ABG Chloride ABG Glucose Oxyhemoglobin Chloride Carbon Dioxide BUN Creatinine Glucose POC Glucose 150 H 139 H Calcium Ferritin Lactate Dehydrogenase C-Reactive Protein Total Protein Albumin Arterial Blood Glucose Arterial Blood Ionized Calcium Coronavirus (PCR) SARS-CoV-2 IgG Ab 07/25/20 07/25/20 07/25/20 05:47 12:09 23:46 WBC RBC Hgb Lymph % (Auto) Lymph # (Auto) Seg Neuts % (Manual) Lymphocytes % (Manual) Seg Neutrophils # Seg Neutrophils # Man Lymphocytes # (Manual) D-Dimer ABG pH POC ABG pCO2 POC ABG pO2 ABG pO2 ABG HCO3 ABG O2 Saturation ABG Base Excess ABG Hemoglobin ABG Oxyhemoglobin ABG Sodium ABG Potassium ABG Chloride ABG Glucose Oxyhemoglobin Chloride Carbon Dioxide BUN Creatinine Glucose POC Glucose 144 H 152 H 116 H Calcium Ferritin Lactate Dehydrogenase C-Reactive Protein Total Protein Albumin Arterial Blood Glucose Arterial Blood Ionized Calcium Coronavirus (PCR) SARS-CoV-2 IgG Ab 07/26/20 07/26/20 07/26/20 03:48 05:36 11:28 WBC RBC Hgb Lymph % (Auto) Lymph # (Auto) Seg Neuts % (Manual) Lymphocytes % (Manual) Seg Neutrophils # Seg Neutrophils # Man Lymphocytes # (Manual) D-Dimer ABG pH POC ABG pCO2 POC ABG pO2 ABG pO2 73.4 L ABG HCO3 35.0 H ABG O2 Saturation ABG Base Excess 8.3 H ABG Hemoglobin 9.8 L ABG Oxyhemoglobin ABG Sodium ABG Potassium ABG Chloride ABG Glucose Oxyhemoglobin 93.7 L Chloride Carbon Dioxide BUN Creatinine Glucose POC Glucose 136 H 145 H Calcium Ferritin Lactate Dehydrogenase C-Reactive Protein Total Protein Albumin Arterial Blood Glucose Arterial Blood Ionized Calcium Coronavirus (PCR) SARS-CoV-2 IgG Ab Allied health notes reviewed: nursing
[2020-07-26] MEDS: MIDAZOLAM 100 MG in SODIUM CHLORIDE 0.9% 80 ML IV SCH (14:09)
[2020-07-26 14:31] LABS: Basophils # (Auto) 0.1 K/mm3 (0.0-0.1); Basophils % (Auto) 0.4 % (0.0-1.8); Eosinophils # (Auto) 0.1 K/mm3 (0.0-0.4); Eosinophils % (Auto) 0.8 % (0.0-4.3); Hematocrit 28.6 % (30.3-42.9); Hemoglobin 9.5 gm/dl (10.1-14.3); Lymphocytes # (Auto) 0.5 K/mm3 (1.2-5.4); Lymphocytes % (Auto) 4.2 % (13.4-35.0); Mean Corpuscular HGB Conc 33 % (30-34); Mean Corpuscular Volume 92 fl (79-97); Monocytes # (Auto) 0.6 K/mm3 (0.0-0.8); Monocytes % (Auto) 4.8 % (0.0-7.3); Platelet Count 179 K/mm3 (140-440); Red Blood Count 3.12 M/mm3 (3.65-5.03); Red Cell Distribution Width 14.8 % (13.2-15.2)
[2020-07-26] MEDS: IPRATROPIUM/ALBUTEROL SULFATE 3 ML AMPUL.NEB IH SCH ×2 (14:55→20:05)
[2020-07-26] MEDS: INSULIN GLARGINE 100 UNITS/ML SUB-Q SCH (17:12)
[2020-07-26] MEDS ORDERED: FUROSEMIDE 40 MG/4 ML INJ IV ONE (20:00)
[2020-07-27] MEDS: fentaNYL DRIP Premix 2,000 MCG/100 ML BAG IV SCH ×5 (01:50→21:37)
[2020-07-27] MEDS: INSULIN REGULAR, HUMAN 100 UNIT/ML 3ML VIAL SUB-Q SCH ×5 (01:51→18:25)
[2020-07-27] MEDS: POLYETHYLENE GLYCOL 3350 17 GM POWDER PO SCH (03:14)
[2020-07-27] MEDS: ENOXAPARIN 30 MG/0.3 ML INJ SUB-Q SCH ×2 (03:14→09:10)
[2020-07-27] MEDS: DOCUSATE SODIUM 100 MG/10 ML ORAL LIQD PO SCH ×2 (03:14→09:10)
[2020-07-27] MEDS: methylPREDNISolone Sod Succinate 40 MG/1 ML INJ IV SCH ×3 (03:14→14:55)
[2020-07-27] MEDS: GABAPENTIN 300 MG CAP PO SCH ×3 (03:15→14:58)
[2020-07-27] MEDS: ALPRAZolam 0.5 MG TAB PO PRN (03:15)
[2020-07-27] MEDS: ASCORBIC ACID 500 MG TAB PO SCH ×2 (03:16→09:09)
[2020-07-27] MEDS: QUEtiapine 200 MG TAB PO SCH ×2 (03:16→09:09)
[2020-07-27] MEDS: ZINC SULFATE 220 MG CAP PO SCH ×2 (03:16→09:10)
[2020-07-27] MEDS ORDERED: FUROSEMIDE 40 MG/4 ML INJ ONE (03:22)
[2020-07-27] MEDS: QUEtiapine 100 MG TAB PO SCH ×2 (03:26→09:10)
[2020-07-27 04:39] LABS: ABG Base Excess 10.1 mmol/L (-2.0-3.0); ABG HCO3 35.7 mmol/L (20.0-26.0); ABG Methemoglobin 0.7 % (0.0-1.5); ABG Oxygen Saturation 87.6 % (95.0-99.0); ABG PCO2 53.3 mm Hg; ABG PH 7.444 pH Units (7.350-7.450)
--- NOTE | 2020-07-27 04:52 | Event Note ---
Date: 07/27/20 Called by RT- worsening hypoxemia. Pa/FIO2 ratio <100 on PEEP 16, FIO2 100%. The facility does not have capabilities for paralytic therapy. Plan to optimize sedation, add pheonobarb Initiate proning. Discussed with RN- order for Norepinephrine given, in the event the patient has sedation induced hypotension
--- NOTE | 2020-07-27 05:49 | XRay Report ---
CHEST - 1 VIEW INDICATION: COVID-ARDS COMPARISON: 07/23/2020 FINDINGS: SUPPORT DEVICES: Stable support device positioning. HEART: Stable cardiomediastinal silhouette. LUNGS/PLEURA: Persistent patchy multifocal airspace disease. ADDITIONAL FINDINGS: None. IMPRESSION: Unchanged exam. Signer Name: Chris Capps MD Signed: 07/27/2020 5:44 AM Workstation Name: [id number]
[2020-07-27] MEDS: ACETAMINOPHEN 325 MG TAB PO PRN ×2 (09:08→18:34)
[2020-07-27] MEDS: ASPIRIN 81 MG TAB CHEW PO SCH (09:09)
[2020-07-27] MEDS: HYDROXYCHLOROQUINE 200 MG TAB PO SCH (09:09)
[2020-07-27] MEDS: LANSOPRAZOLE 30 MG SOLUTAB FEEDTUBE SCH (09:13)
[2020-07-27] MEDS: ARFORMOTEROL 15 MCG/2 ML NEBU IH SCH ×2 (09:20→19:35)
[2020-07-27] MEDS: IPRATROPIUM/ALBUTEROL SULFATE 3 ML AMPUL.NEB IH SCH ×3 (09:20→19:35)
[2020-07-27] MEDS: BUDESONIDE 0.5 MG/2 ML NEBU IH SCH ×2 (09:20→19:35)
--- NOTE | 2020-07-27 09:37 | Progress Note ---
Assessment and Plan Assessment and plan: --Acute asthma exacerbation on iv steroid Oxygen supplementation as needed Continue montelukast Monitor oxygen saturations closely -- COVID-19 Tested positive for COVID-19 in [place] iv steroid, s/p Remdesivir for 5 days s/p convalescent plasma transfusion Procalcitonin <0.05, ID on board follow ferritin, ldh, d-dimer levels -- Acute hypoxic respiratory failure Now intubated on 07/09/20 overnight From COVID-19 and asthma exacerbation Continue steroids Continue oxygen supplementation -- GERD (gastroesophageal reflux disease) cont Pantoprazole --SLE (systemic lupus erythematosus related syndrome) Continue home medications-hydroxychloroquine -- DVT prophylaxis Lovenox 30 mg twice daily -- Full code status brief History: 50-year-old female with a past medical history of asthma, hypertension, and lupus complains of generalized body weakness, fever and shortness of breath. Patient states the symptoms started right after she was discharged from [place] on 07/05. She has associated wheezing, fever, cough and she has been using her inhalers with no significant effect. She also has associated diarrhea. Of note, she was hospitalized here in [facility] on 06/[facility] for asthma exacerbation and had a negative Covid test during the admission. She was treated and discharged. She presented to [place] for further evaluation after discharge from here and over there, she was found to have positive COVID-19 test and she was placed on steroids and subsequently discharged on Eliquis prophylaxis for DVT. She states that she did not receive remdesivir during the admission. She was discharged from [place] on 07/05. She went home and felt worse. She said that she passed out about 2 times. Due to persistent symptoms, she called EMS who brought her to [facility] for further evaluation. Daily course: 07/07. Patient seen and examined at bedside this morning. Patient is wheezing and slightly short of breath. Change steroids to Solu-Medrol 60 every 6. Added formoterol and budesonide. ID evaluation pending. Started patient on remdesivir as she is short of breath. 07/07: Placed on BIPAP this AM. Will need pulm evaluation. Solumedrol 60mg q6. STAT blood gas ordered. She will be transferred to [facility]. 07/08: Patient took oxygen off and attempts to go to the bathroom and subsequently became hypoxemic with sats down into the low 80s. Patient became weak short of breath. After that time patient had persistent coughing and cannot maintain sats until nonrebreather was placed. Patient is transferred to the ICU unit and monitored for respiratory failure possibly requiring intubation. 07/09: ID recommended for convalescent plasma, ordered. Patient intubated overnight. Continue to monitor clinically, scheduled lab, follow inflammatory markers 07/10: Wait for convalescent plasma transfusion, wean off from ventilator as tolerated 07/11: Called patient's daughter and updated. Continue to wean off vent as tolerated, continue tube feeding, monitor vital sign CBC BMP daily. 07/12: remains intubated and sedated. follow inflammatory markers - wean off vent as tolerated 07/13: wean off vent as tolerated, cxr in the am. reviewed vitals 07/14: remains intubated, has not received convalescent plasma yet. Reviewed vitals, tolerating tube feeding. Wean off vent per critical care as tolerated. 07/15: cont to provide supportive care, wean off vent as tolerated - difficult to wean off. 07/16: CXR findings improving, cont to wean off vent 07/17: Follow inflammatory markers, monitor off antibiotics. Wean off vent per pulmonary as tolerated 07/18: Wean off vent per pulmonary as tolerated,Follow inflammatory markers, monitor off antibiotics. 07/19: Wean off vent per pulmonary as tolerated,Follow inflammatory markers, monitor off antibiotics. SBT trial 07/20: Wean off vent as tolerated, continue supportive care, follow inflammatory markers 07/21: continue supportive care, follow inflammatory markers, wean off vent as tolerated 07/22: Continue to wean off from ventilator as tolerated per pulmonary recommendation, follow inflammatory markers. Repeat CBC BMP in the morning. We will repeat Covid test tomorrow to see if patient cleared the infection. 07/23. Continue to wean off from ventilator as tolerated per pulmonary recommen dation, follow inflammatory markers. Currently AC mode, rate 16, tidal volume 450 with FiO2 75%vand PEEP 14 07/24/2020. Continue ventilatory support with AC mode, rate 16, tidal volume 450, FiO2 100% and PEEP of 16. Continue Brovana and Pulmicort. Continue IV steroids 40 mg IV every 8 hours. Anticoagulation with Lovenox 30 mg twice daily. Patient currently sedated with Versed and fentanyl. 07/25/2020. Continue ventilatory support with AC mode, rate 16, tidal volume 450, FiO2 75% and PEEP of 16. Continue Brovana and Pulmicort. Continue IV steroids 40 mg IV every 8 hours. Anticoagulation with Lovenox 30 mg twice daily. Patient currently sedated with Versed and fentanyl. Continue to wean per pulmonary recommendations. 07/26/2020. Continue ventilatory support with AC mode, rate 16, tidal volume 450, FiO2 85% and PEEP of 16. Continue Brovana and Pulmicort. Continue IV steroids 40 mg IV every 8 hours. Anticoagulation with Lovenox 30 mg twice daily. Patient currently sedated with Versed and fentanyl. Continue to wean per protocol. 07/27/2020. Continue ventilatory support with AC mode, rate 16, tidal volume 450, FiO2 100% and PEEP of 16. Patient with increased oxygen requirements the past couple of days. Continue Brovana and Pulmicort. Continue IV steroids 40 m g IV every 8 hours. Anticoagulation with Lovenox 30 mg twice daily. Patient currently sedated with Versed and fentanyl. Dose of Lasix given by pulmonary yesterday to achieve negative fluid balance. Follow-up serial chest x-ray The high probability of a clinically significant, sudden or life threatening deterioration of the [[employer], respiratory, [employer]] system(s) required my full and direct attention, intervention and personal management. The aggregate critical care time was [32] minutes. This time is in addition to time spent performing reported procedures but includes the following: [x] Data Review and interpretation [x] Patient assessment and monitoring of vital signs [x] Documentation [x] Medication orders and management History Interval history: No new issues overnight. Hospitalist Physical - Constitutional Vitals: Temp Pulse Resp BP Pulse Ox 101.3 F H 107 H 20 114/58 82 L 07/27/20 08:00 07/27/20 09:20 07/27/20 09:20 07/27/20 07:00 07/27/20 07:00 General appearance: Present: no acute distress, well-nourished - EENT Eyes: Present: PERRL, EOM intact ENT: hearing intact, clear oral mucosa, dentition normal - Neck Neck: Present: supple, normal ROM - Respiratory Respiratory effort: normal Respiratory: bilateral: CTA - Cardiovascular Rhythm: regular Heart Sounds: Present: S1 & S2. Absent: gallop, rub - Extremities Extremities: no ischemia, No edema, Full ROM - Abdominal General gastrointestinal: soft, non-tender, non-distended, normal bowel sounds - Integumentary Integumentary: Present: clear, warm, dry - Neurologic Neurologic: CNII-XII intact, moves all extremities Results - Labs CBC & Chem 7: 07/26/20 14:23 07/23/20 04:00 Labs: Laboratory Last Values WBC 12.0 K/mm3 (4.5-11.0) H 07/26/20 14:23 RBC 3.12 M/mm3 (3.65-5.03) L 07/26/20 14:23 Hgb 9.5 gm/dl (10.1-14.3) L 07/26/20 14:23 Hct 28.6 % (30.3-42.9) L 07/26/20 14:23 MCV 92 fl (79-97) 07/26/20 14:23 MCH 31 pg (28-32) 07/26/20 14:23 MCHC 33 % (30-34) 07/26/20 14:23 RDW 14.8 % (13.2-15.2) 07/26/20 14:23 Plt Count 179 K/mm3 (140-440) 07/26/20 14:23 Lymph % (Auto) 4.2 % (13.4-35.0) L 07/26/20 14:23 Cochran % (Auto) 4.8 % (0.0-7.3) 07/26/20 14:23 Eos % (Auto) 0.8 % (0.0-4.3) 07/26/20 14:23 Baso % (Auto) 0.4 % (0.0-1.8) 07/26/20 14:23 Lymph # (Auto) 0.5 K/mm3 (1.2-5.4) L 07/26/20 14:23 Cochran # (Auto) 0.6 K/mm3 (0.0-0.8) 07/26/20 14:23 Eos # (Auto) 0.1 K/mm3 (0.0-0.4) 07/26/20 14:23 Baso # (Auto) 0.1 K/mm3 (0.0-0.1) 07/26/20 14:23 Add Manual Diff Complete 07/23/20 04:00 Total Counted 100 07/23/20 04:00 Seg Neutrophils % 89.8 % (40.0-70.0) H 07/26/20 14:23 Seg Neuts % (Manual) 94.0 % (40.0-70.0) H 07/23/20 04:00 Band Neutrophils % 0 % 07/23/20 04:00 Lymphocytes % (Manual) 5.0 % (13.4-35.0) L 07/23/20 04:00 Reactive Lymphs % (Man) 0 % 07/23/20 04:00 Monocytes % (Manual) 1.0 % (0.0-7.3) 07/23/20 04:00 Eosinophils % (Manual) 0 % (0.0-4.3) 07/23/20 04:00 Basophils % (Manual) 0 % (0.0-1.8) 07/23/20 04:00 Metamyelocytes % 0 % 07/23/20 04:00 Myelocytes % 0 % 07/23/20 04:00 Promyelocytes % 0 % 07/23/20 04:00 Blast Cells % 0 % 07/23/20 04:00 Nucleated RBC % Not Reportable 07/23/20 04:00 Seg Neutrophils # 10.8 K/mm3 (1.8-7.7) H 07/26/20 14:23 Seg Neutrophils # Man 10.9 K/mm3 (1.8-7.7) H 07/23/20 04:00 Band Neutrophils # 0.0 K/mm3 07/23/20 04:00 Lymphocytes # (Manual) 0.6 K/mm3 (1.2-5.4) L 07/23/20 04:00 Abs React Lymphs (Man) 0.0 K/mm3 07/23/20 04:00 Monocytes # (Manual) 0.1 K/mm3 (0.0-0.8) 07/23/20 04:00 Eosinophils # (Manual) 0.0 K/mm3 (0.0-0.4) 07/23/20 04:00 Basophils # (Manual) 0.0 K/mm3 (0.0-0.1) 07/23/20 04:00 Metamyelocytes # 0.0 K/mm3 07/23/20 04:00 Myelocytes # 0.0 K/mm3 07/23/20 04:00 Promyelocytes # 0.0 K/mm3 07/23/20 04:00 Blast Cells # 0.0 K/mm3 07/23/20 04:00 WBC Morphology Not Reportable 07/23/20 04:00 Hypersegmented Neuts Not Reportable 07/23/20 04:00 Hyposegmented Neuts Not Reportable 07/23/20 04:00 Hypogranular Neuts Not Reportable 07/23/20 04:00 Smudge Cells Not Reportable 07/23/20 04:00 Toxic Granulation Not Reportable 07/23/20 04:00 Toxic Vacuolation Not Reportable 07/23/20 04:00 Dohle Bodies Not Reportable 07/23/20 04:00 Pelger-Huet Anomaly Not Reportable 07/23/20 04:00 Savanna Rods Not Reportable 07/23/20 04:00 Platelet Estimate Consistent w auto 07/23/20 04:00 Clumped Platelets Not Reportable 07/23/20 04:00 Plt Clumps, EDTA Not Reportable 07/23/20 04:00 Large Platelets Not Reportable 07/23/20 04:00 Giant Platelets Not Reportable 07/23/20 04:00 Platelet Satelliting Not Reportable 07/23/20 04:00 Plt Morphology Comment Not Reportable 07/23/20 04:00 RBC Morphology Not Reportable 07/23/20 04:00 Dimorphic RBCs Not Reportable 07/23/20 04:00 Polychromasia Few 07/23/20 04:00 Hypochromasia Not Reportable 07/23/20 04:00 Poikilocytosis Not Reportable 07/23/20 04:00 Anisocytosis Not Reportable 07/23/20 04:00 Microcytosis Not Reportable 07/23/20 04:00 Macrocytosis Not Reportable 07/23/20 04:00 Spherocytes Not Reportable 07/23/20 04:00 Pappenheimer Bodies Not Reportable 07/23/20 04:00 Sickle Cells Not Reportable 07/23/20 04:00 Target Cells Not Reportable 07/23/20 04:00 Tear Drop Cells Few 07/23/20 04:00 Ovalocytes Not Reportable 07/23/20 04:00 Helmet Cells Not Reportable 07/23/20 04:00 Raza-[place] Bodies Not Reportable 07/23/20 04:00 [place] Rings Not Reportable 07/23/20 04:00 [place] Cells Not Reportable 07/23/20 04:00 Bite Cells Not Reportable 07/23/20 04:00 Crenated Cell Not Reportable 07/23/20 04:00 Elliptocytes Not Reportable 07/23/20 04:00 Acanthocytes (Spur) Not Reportable 07/23/20 04:00 Rouleaux Not Reportable 07/23/20 04:00 Hemoglobin C Crystals Not Reportable 07/23/20 04:00 Schistocytes Not Reportable 07/23/20 04:00 Malaria parasites Not Reportable 07/23/20 04:00 Junaid Bodies Not Reportable 07/23/20 04:00 Hem Pathologist Commnt No 07/23/20 04:00 D-Dimer 826.36 ng/mlDDU (0-234) H 07/13/20 07:20 ABG pH 7.444 pH Units (7.350-7.450) 07/27/20 04:30 POC ABG pCO2 46.1 mmHg (32.0-48.0) 07/22/20 03:26 ABG pCO2 53.3 mm Hg 07/27/20 04:30 POC ABG pO2 54.2 mmHg (83-108) L 07/22/20 03:26 ABG pO2 49.0 mm Hg (80.0-90.0) L 07/27/20 04:30 POC ABG HCO3 30.0 07/22/20 03:26 ABG HCO3 35.7 mmol/L (20.0-26.0) H 07/27/20 04:30 ABG O2 Saturation 87.6 % (95.0-99.0) L 07/27/20 04:30 ABG O2 Content 13.8 (0.0-44) 07/27/20 04:30 POC ABG Base Excess 5.0 07/22/20 03:26 ABG Base Excess 10.1 mmol/L (-2.0-3.0) H 07/27/20 04:30 ABG Hemoglobin 11.5 gm/dl (12.0-16.0) L 07/27/20 04:30 ABG Oxyhemoglobin 93.6 (94-98) L 07/19/20 16:29 ABG Carboxyhemoglobin 1.8 % (0.0-5.0) 07/27/20 04:30 ABG Methemoglobin 0.7 % (0.0-1.5) 07/27/20 04:30 ABG Sodium 133.7 mmol/L (136.0-145.0) L 07/22/20 03:26 ABG Potassium 4.2 mmol/L (3.40-4.50) 07/22/20 03:26 ABG Chloride 100.0 mmol/L (98-107) 07/22/20 03:26 ABG Glucose 217 mg/dL (65-95) H 07/22/20 03:26 Oxyhemoglobin 85.4 % (95.0-99.0) L 07/27/20 04:30 Carboxyhemoglobin 0.7 (0.5-1.5) 07/19/20 16:29 FiO2 100 % 07/27/20 04:30 Sodium 137 mmol/L (137-145) 07/23/20 04:00 Potassium 3.9 mmol/L (3.6-5.0) 07/23/20 04:00 Chloride 99.6 mmol/L (98-107) 07/23/20 04:00 Carbon Dioxide 35 mmol/L (22-30) H 07/23/20 04:00 Anion Gap 6 mmol/L 07/23/20 04:00 BUN 14 mg/dL (7-17) 07/23/20 04:00 Creatinine 0.4 mg/dL (0.6-1.2) L 07/23/20 04:00 Estimated GFR > 60 ml/min 07/23/20 04:00 BUN/Creatinine Ratio 35 % 07/23/20 04:00 Glucose 112 mg/dL (65-100) H 07/23/20 04:00 POC Glucose 164 mg/dL (70-105) H 07/27/20 05:54 Lactic Acid 1.90 mmol/L (0.7-2.0) 07/09/20 Unknown Calcium 8.2 mg/dL (8.4-10.2) L 07/23/20 04:00 Phosphorus 3.20 mg/dL (2.5-4.5) 07/08/20 16:13 Magnesium 2.20 mg/dL (1.7-2.3) 07/08/20 16:13 Ferritin 219.8 ng/mL (10.0-200.0) H 07/13/20 07:20 Total Bilirubin 0.20 mg/dL (0.1-1.2) 07/13/20 07:20 AST 14 units/L (5-40) 07/13/20 07:20 ALT 13 units/L (7-56) 07/13/20 07:20 Alkaline Phosphatase 53 units/L (35-129) 07/13/20 07:20 Lactate Dehydrogenase 531 units/L (91-180) H 07/15/20 09:00 C-Reactive Protein 1.80 mg/dL (0.00-1.30) H 07/13/20 07:20 Total Protein 5.8 g/dL (6.3-8.2) L 07/13/20 07:20 Albumin 3.2 g/dL (3.9-5) L 07/13/20 07:20 Albumin/Globulin Ratio 1.2 % 07/13/20 07:20 Triglycerides 130 mg/dL (2-149) 07/23/20 04:42 Procalcitonin < 0.05 ng/mL (<0.15) 07/10/20 12:10 Arterial Blood Glucose 217 mg/dL (65-95) H 07/22/20 03:26 Arterial Blood Ionized Calcium 4.5 mg/dL (4.6-5.3) L 07/22/20 03:26 Urine Color Yellow (Yellow) 07/11/20 09:30 Urine Turbidity Clear (Clear) 07/11/20 09:30 Urine pH 5.0 (5.0-7.0) 07/11/20 09:30 Ur Specific Ulen 1.028 (1.003-1.030) 07/11/20 09:30 Urine Protein <15 mg/dl mg/dL (Negative) 07/11/20 09:30 Urine Glucose (UA) Neg mg/dL (Negative) 07/11/20 09:30 Urine Ketones Neg mg/dL (Negative) 07/11/20 09:30 Urine Blood Neg (Negative) 07/11/20 09:30 Urine Nitrite Neg (Negative) 07/11/20 09:30 Urine Bilirubin Neg (Negative) 07/11/20 09:30 Urine Urobilinogen 2.0 mg/dL (<2.0) 07/11/20 09:30 Ur Leukocyte Esterase Neg (Negative) 07/11/20 09:30 Urine WBC (Auto) 1.0 /HPF (0.0-6.0) 07/11/20 09:30 Urine RBC (Auto) 1.0 /HPF (0.0-6.0) 07/11/20 09:30 U Epithel Cells (Auto) 1.0 /HPF (0-13.0) 07/11/20 09:30 Urine Mucus Few /HPF 07/11/20 09:30 Coronavirus (PCR) Positive (Negative) A 07/23/20 Unknown SARS-CoV-2 IgG Ab Reactive (NonReactive) A 07/15/20 14:30 Blood Type O POSITIVE 07/09/20 15:30 Antibody Screen Negative 07/09/20 15:30 - Diagnostic Impressions Diagnostic Impressions: Echocardiogram 07/19/20 13:13 Transthoracic Echocardiogram Indication: CHF BP: 106/58 Conclusions *The left ventricular systolic function is within normal limits. There are no wall motion abnormalities observed. *The estimated ejection fraction is 60-65%. *Normal left ventricular diastolic filling is observed. Findings Procedure Info: The study quality is fair. Left Ventricle: The left ventricular chamber size, wall thickness and systolic function are within normal limits. There are no wall motion abnormalities observed. Ejection fraction is normal. The estimated ejection fraction is 60-65%. Normal left ventricular diastolic filling is observed. Left Atrium: The left atrium is normal in size with no visual thrombus identified. Right Ventricle: The right ventricular chamber size and systolic function are within normal limits. Right Atrium: The right atrium appears normal. Aortic Valve: The aortic valve is trileaflet. The leaflets are thin with normal excursion. There is no aortic stenosis or regurgitation present. Mitral Valve: The mitral valve leaflets are mildly thickened. There is trace of mitral regurgitation. There is no evidence of mitral stenosis. Tricuspid Valve: The tricuspid valve leaflets are normal. There is trace tricuspid regurgitation. The right ventricular systolic pressure is calculated at 14 mmHg. There is no tricuspid stenosis. Pulmonic Valve: The pulmonic valve appears normal. There is mild pulmonic regurgitation. There is no pulmonic stenosis. Pericardium: The pericardium appears normal. Aorta: The aorta appears normal. Pulmonary Artery: The main pulmonary artery appears normal. Venous: The inferior vena cava appears normal in size. There is a greater than 50% respiratory change in the inferior vena cava dimension. Measurements Chambers 2D Name Value Normal Range IVSd (2D) 1.08 cm (0.6 - 1.1) LVPWd (2D) 0.91 cm (0.6 - 1.1) LVIDd (2D) 4.61 cm (3.7 - 5.6) LVIDs (2D) 3.12 cm (2 - 3.8) LV FS (2D) 32.38 % - EF Teichholz (2D) 60.72 % - Ao root diameter (2D) 3.01 cm (2 - 3.7) Volumes/Mass Name Value Normal Range LA ESV SP 4CH (A/L) 57.18 ml - LA ESV SP 2CH (A/L) 62.63 ml - LA ESV BP (A/L) 60.68 ml - LA ESV BP (A/L) index 28.22 ml/m2 - LA ESV SP 4CH (MOD) 51.17 ml - LA ESV SP 2CH (MOD) 57.8 ml - LA ESV BP (MOD) 54.73 ml - LA ESV BP (MOD) index 25.45 ml/m2 - LV EDV SP 4CH (MOD) 115.34 ml - LV ESV SP 4CH (MOD) 43.26 ml - EF SP 4CH (MOD) 62.5 % - LV EDV SP 2CH (MOD) 43.71 ml - LV ESV SP 2CH (MOD) 17.14 ml - EF SP 2CH (MOD) 60.79 % - LV EDV BP 73.15 ml - LV ESV BP 27.92 ml - BP EF (MOD) 61.83 % - Diastolic/Systolic Function Name Value Normal Range MV E-wave Vmax 0.88 m/sec - MV deceleration time 157.66 msec - MV A-wave Vmax 0.91 m/sec - MV E:A ratio 0.96 ratio - Aortic Valve Name Value Normal Range AV Vmax 1.54 m/sec - AV VTI 31.46 cm - AV peak gradient 9.51 mmHg - AV mean gradient 5.1 mmHg - LVOT diameter 1.95 cm - LVOT Vmax 1.21 m/sec - LVOT VTI 27.59 cm - LVOT peak gradient 5.83 mmHg - LVOT mean gradient 3.3 mmHg - SV LVOT 82.76 ml - SMITH (continuity Vmax) 2.35 cm2 - SMITH (continuity VTI) 2.63 cm2 - Ascending Ao 2.94 cm - Tricuspid Valve Name Value Normal Range TV E-wave Vmax 0.49 m/sec - TR Vmax 1.72 m/sec - TR peak gradient 11.86 mmHg - RAP 3 mmHg - RVSP 14 mmHg - IVC diameter 1.91 cm (1.2 - 2.3) Pulmonic Valve/Qp:Qs Name Value Normal Range PV Vmax 0.94 m/sec - PV peak gradient 3.54 mmHg - WI end-diastolic Vmax 0.54 m/sec - RVOT Vmax 0.68 m/sec - RVOT VTI 13.18 cm - RVOT peak gradient 1.82 mmHg - PV acceleration time 117.98 msec - Tejada/IV: Voiding Method External Female Catheter IV Catheter Type [Left Upper PICC Line arm] IV Catheter Type [Right INT / Saline Lock Forearm] IV Catheter Type [Left Wrist] INT / Saline Lock IV Catheter Type [Left Hand] Peripheral IV Active Medications - Current Medications Current Medications: Generic Name Dose Route Start Last Admin Trade Name Freq PRN Reason Stop Dose Admin Acetaminophen 650 mg 07/06/20 13:39 07/27/20 09:08 Tylenol PO 650 mg Q4H PRN Administration Pain MILD(1-3)/Fever >100.5/WILLETT Albuterol/Ipratropium 1 ampul 07/26/20 14:00 07/27/20 09:20 Duoneb *Not For Prn Use* IH 1 ampul TIDRT ROMMEL Administration Alprazolam 0.5 mg 07/07/20 12:28 07/27/20 03:15 Xanax PO 0.5 mg Q8H PRN Administration Anxiety Lipase/Protease/Amylase 1 each 07/08/20 14:50 Pancremaria del rosario Price 10,500 Unit FEEDTUBE PRN PRN For Clogged Feeding Tube Arformoterol Tartrate 15 mcg 07/07/20 09:15 07/27/20 09:20 Adriel Adams IH 15 mcg Q12HRT ROMMEL Administration Ascorbic Acid 500 mg 07/08/20 22:00 07/27/20 09:09 Vitamin C PO 500 mg BID ROMMEL Administration Aspirin 81 mg 07/06/20 14:00 07/27/20 09:09 Baby Aspirin PO 81 mg QDAY ROMMEL Administration Budesonide 0.5 mg 07/07/20 09:15 07/27/20 09:20 Pulmicort IH 0.5 mg Q12HRT ROMMEL Administration Dextrose 50 ml 07/12/20 16:58 D50w (25gm) Syringe IV Q30MIN PRN Hypoglycemia Protocol Docusate Sodium 100 mg 07/16/20 22:00 07/27/20 09:10 Colace PO 100 mg BID ROMMEL Administration Enoxaparin Sodium 30 mg 07/06/20 15:00 07/27/20 09:10 Enoxaparin SUB-Q 30 mg BID ROMMEL Administration Protocol Fentanyl 50 mcg 07/08/20 13:16 07/11/20 09:41 Sublimaze IV 50 mcg Q10MIN PRN Administration ANALGESIA Gabapentin 600 mg 07/25/20 14:00 07/27/20 07:11 Gabapentin PO 600 mg Q8HR ROMMEL Administration Hydrophilic Ointment 1 applic 07/08/20 13:16 07/22/20 23:01 Vaseline Lip Therapy TP 1 applic Q2HR PRN Administration Dry Lips Hydroxychloroquine Sulfate 200 mg 07/07/20 10:00 07/27/20 09:09 Plaquenil PO 200 mg QDAY ROMMEL Administration Fentanyl Citrate 2,000 mcg in 100 mls @ 4.825 mls/hr 07/08/20 14:00 07/27/20 09:29 Fentanyl Drip Premix IV 3 mcg/kg/hr TITR ROMMEL 14.475 mls/hr Administration Protocol 1 MCG/KG/HR Midazolam HCl 100 mg/ Sodium 100 mls @ 2 mls/hr 07/08/20 15:00 07/26/20 14:09 Chloride IV 5 mg/hr TITR ROMMEL 5 mls/hr Administration Protocol 2 MG/HR Sodium Chloride 500 mls @ 10 mls/hr 07/15/20 15:00 Nacl 0.9% 500 Ml IV DIRECT ROMMEL Propofol 1,000 mg in 100 mls @ 3.3 mls/hr 07/19/20 13:00 07/27/20 09:11 Diprivan 10 Mg/Ml IV 50 mcg/kg/min TITR ROMMEL 33 mls/hr Administration Protocol 5 MCG/KG/MIN Norepinephrine 4 mg in 250 mls @ 7.5 mls/hr 07/27/20 05:00 Levophed Drip 4 Mg/Ns 250 Ml IV TITR ROMMEL Protocol 2 MCG/MIN Insulin Glargine 5 units 07/12/20 17:00 07/26/20 17:12 Lantus SUB-Q 5 units Q24H ROMMEL Administration Insulin Human Regular 0 unit 07/12/20 17:00 07/27/20 07:07 Humulin R SUB-Q Not Given Q6H [facility] Protocol Lansoprazole 30 mg 07/10/20 10:00 07/27/20 09:13 Prevacid Solutab FEEDTUBE 30 mg QDAY [facility] Administration Methylprednisolone Sodium Succinate 40 mg 07/22/20 14:00 07/27/20 07:11 Solu-Medrol IV 40 mg Q8H ROMMEL Administration Midazolam HCl 2 mg 07/08/20 14:33 07/18/20 23:46 Versed IV 2 mg Q10MIN PRN Administration Sedation Multi-Ingred Cream/Lotion/Oil/Oint 1 applic 07/08/20 13:16 Artificial Tears Ophth Oint OU Q4HR PRN Dry Eye(s) Ondansetron HCl 4 mg 07/06/20 13:39 07/08/20 10:44 Zofran IV 4 mg Q8H PRN Administration Nausea And Vomiting Polyethylene Glycol 17 gm 07/16/20 22:00 07/27/20 03:14 Miralax 3350 PO 17 gm QHS ROMMEL Administration Pseudoephedrine/Acetam/Chlorphenir 10 ml 07/07/20 01:17 07/08/20 08:30 Robitussin Ac PO 10 ml Q4H PRN Administration Cough Quetiapine Fumarate 200 mg 07/25/20 22:00 07/27/20 09:09 Seroquel PO 200 mg BID ROMMEL Administration Quetiapine Fumarate 100 mg 07/25/20 22:00 07/27/20 09:10 Seroquel PO 100 mg BID ROMMEL Administration Simple Syrup 15 ml 07/08/20 14:50 Simple Syrup FEEDTUBE PRN PRN Hypoglycemia Simple Syrup 30 ml 07/08/20 14:50 Simple Syrup FEEDTUBE PRN PRN Hypoglycemia Sodium Bicarbonate 325 mg 07/08/20 14:50 Sodium Bicarbonate FEEDTUBE PRN PRN For Clogged Feeding Tube Sodium Chloride 10 ml 07/06/20 14:00 07/27/20 09:10 Sodium Chloride Flush Syringe 10 Ml IV 10 ml BID ROMMEL Administration Sodium Chloride 10 ml 07/06/20 13:39 07/26/20 06:31 Sodium Chloride Flush Syringe 10 Ml IV 10 ml PRN PRN Administration LINE FLUSH Venlafaxine HCl 37.5 mg 07/07/20 10:00 07/26/20 09:42 Effexor PO 37.5 mg DAILY ROMMEL Administration Zinc Sulfate 220 mg 07/08/20 22:00 07/27/20 09:10 Zinc Sulfate PO 220 mg BID ROMMEL Administration Nutrition/Malnutrition Assess - Dietary Evaluation Nutrition/Malnutrition Findings: Nutrition Notes Start: 07/08/20 14:02 Freq: Status: Active Protocol: Document 07/24/20 12:36 LP (Rec: 07/24/20 12:42 LP [id number]) Nutrition Notes Initial or Follow up Reassessment Current Diagnosis Hypertension,Heart Failure Other Pertinent Diagnosis Acute respiratory failure, COVID(+), GERD, Lupus Current Diet Vital AF 1.2 at 55 mL/hr (goal rate) Labs/Tests Reviewed Pertinent Medications Propofol Height 5 ft 5 in Weight 109.8 kg Sylvia Body Weight (kg) 56.81 BMI 40.2 Weight Status Obese Subjective/Other Information Pt tolerating TF at goal rate. BM July 22. Percent of energy/protein needs met: 96%/87% Burn Absent Trauma Absent GI Symptoms None Current % PO Negligible Minimum of two criteria No physical signs of malnutrition #1 Nutrition Diagnosis Inadequate oral intake Diagnosis Progress(for reassessment Continues documentation) Is patient on ventilator? Yes Is Patient Ambulatory and/or Out of Bed No REE-([facility]-confined to bed) 2077.944 Kcal/Kg value to use for calculation 15 Approximate Energy Requirements Using 1647 kcal/Kg Calculation Used for Recommendations Kcal/kg Additional Notes Pro: greater than 114 g (>2 g/ kg IBW) Fluid: 1ml/kcal or per MD Nutrition Intervention Change Diet Order: Continue TF Nutrition Support: Vital AF at 55 ml/hr Flush 75 ml q4h Kcal 1,584 Protein (gm) 99 Fluid (mL) 1,070 Goal #1 Meet at least 80% of protein and energy needs via TF Anticipated Discharge Needs: Cannot determine at this time Follow-Up By: 07/31/20 Additional Comments Follow for TF Tolerance
[2020-07-27] MEDS: MIDAZOLAM 100 MG in SODIUM CHLORIDE 0.9% 80 ML IV SCH (10:19)
[2020-07-27] MEDS: VENLAFAXINE 37.5 MG TAB PO SCH (11:45)
--- NOTE | 2020-07-27 12:34 | Progress Note ---
Assessment and Plan 50-year-old female with CHF, asthma, hypertension, lupus was admitted to the hospital with complaints of fever, shortness of breath. Of note, she was seen last week due to an asthma exacerbation when her SARS-CoV-2 PCR and IgG were both negative. She was treated with steroids. She reportedly then went to [place] and tested positive for COVID-19 and was discharged from the hospital on 07/05/2020 readmitted here with: Acute hypoxemic respiratory failure, now on MVS Bilateral pneumonia, left greater than right lungs. COVID-19 infection-SEVERE/CRITICAL . History of congestive heart failure. History of lupus erythematosus. Leukocytosis. Tobacco use disorder. Acute asthma exacerbation. History of hypertension. Obesity Remains critically ill, on going intermittent desaturations. Proning per facility protocol for next 5 days Monitor renal function and hemodynamics closely. Conservative fluid management. Place alves catheter while being proned Vasopressor support as indicated BMP in am CXR in am Wean FiO2 for O2 sats>92% -Continue Seroquel to 300mg BID while monitoring for arrhythmias and QTc - continue airborne and contact isolation per facility protocol -Continue to monitor off antibiotics - continue systemic steroids for Asthma / severe COVID infection - continue Daily assessment for readiness to wean. Ventilatory demands are too high at this time - VAP bundle addressed, aspiration precautions, HOB >40 - continue lung protective strategies - accuchecks with glycemic control per SSI (While critically ill target blood glucose of 140-180 mg/dL; avoid hypoglycemia) - sedation for target RASS -1 to -2 - avoid nephrotoxins, renally dose all medications - prn analgesia per CPOT score - Maintenance of sleep-wake cycle, avoid delirium - G.I. & VTE prophylaxis( Famotidine and Enoxaparin) - PT/OT/ROM exercises - continue mobility protocols for pressure ulcer prevention as tolerated - continue other care per attending / other consultants - discharge planning ongoing concurrently COVID SPECIFIC INTERVENTIONS -On steroids -Prophylactic anticoagulation based on d-dimer -s/p Remdesivir -s/p Convalescent plasma, was IgG negative -Zinc & Vit C supplementation -Contact and airborne isolation per facility protocols CONDITION: CRITICAL PROGNOSIS: GUARDED CODE STATUS: FULL CODE The high probability of a clinically significant, sudden or life-threatening deterioration of the [respiratory, cardiovascular & neurologic] system(s) required my full and direct attention, intervention and personal management. The aggregate critical care time was [35] minutes without overlap. Time includes spent on; [x] Data Review and interpretation [x] Patient assessment and monitoring of vital signs [x] Documentation [x] Medication orders and management Subjective Date of service: 07/27/20 Principal diagnosis: Ac hypoxemic resp failure; PNA; COVID-19 infxn; SLE; Asthma exacerbation Interval history: Patient is seen today for: Acute hypoxemic respiratory failure; Bilateral pneumonia; COVID-19 infection; H/O CHF; SLE; Acute asthma exacerbation. HTN; Obesity Seen and examined at bedside; 24hour events reviewed; nursing and respiratory c are staff consulted; no adverse overnight events reported to me; resting peacefully in bed; remains on MVS Midazolam, Fentanyl and Propofol. She is sedated, proned No dys-synchrony at this time. No N/V/F/C Objective Vital Signs - 12hr 07/27/20 07/27/20 07/27/20 01:00 01:30 02:00 Temperature Pulse Rate 83 88 109 H Pulse Rate [ Bilateral Throughout] Pulse Rate [ From Monitor] Respiratory 17 21 34 H Rate Respiratory Rate [Bilateral Throughout] Blood Pressure 108/53 98/56 123/74 O2 Sat by Pulse 93 92 94 Oximetry 07/27/20 07/27/20 07/27/20 02:30 03:00 03:30 Temperature Pulse Rate 93 H 95 H 124 H Pulse Rate [ Bilateral Throughout] Pulse Rate [ From Monitor] Respiratory 24 22 35 H Rate Respiratory Rate [Bilateral Throughout] Blood Pressure 110/54 110/53 110/53 O2 Sat by Pulse 92 93 75 L Oximetry 07/27/20 07/27/20 07/27/20 04:00 04:21 04:30 Temperature 98.9 F Pulse Rate 109 H 118 H 120 H Pulse Rate [ Bilateral Throughout] Pulse Rate [ 109 H From Monitor] Respiratory 30 H 31 H Rate Respiratory Rate [Bilateral Throughout] Blood Pressure 130/70 109/55 109/55 O2 Sat by Pulse 87 82 L 84 Oximetry 07/27/20 07/27/20 07/27/20 05:00 05:36 06:00 Temperature Pulse Rate 121 H 109 H 110 H Pulse Rate [ Bilateral Throughout] Pulse Rate [ From Monitor] Respiratory 24 16 16 Rate Respiratory Rate [Bilateral Throughout] Blood Pressure 113/57 119/55 100/55 O2 Sat by Pulse 87 80 L Oximetry 07/27/20 07/27/20 07/27/20 06:30 07:00 07:30 Temperature Pulse Rate 109 H 109 H 107 H Pulse Rate [ Bilateral Throughout] Pulse Rate [ From Monitor] Respiratory 16 15 14 Rate Respiratory Rate [Bilateral Throughout] Blood Pressure 105/56 114/58 109/56 O2 Sat by Pulse 80 L 82 L 84 Oximetry 07/27/20 07/27/20 07/27/20 08:00 08:30 09:00 Temperature 101.3 F H Pulse Rate 102 H 102 H 108 H Pulse Rate [ Bilateral Throughout] Pulse Rate [ From Monitor] Respiratory 16 18 16 Rate Respiratory Rate [Bilateral Throughout] Blood Pressure 94/60 101/62 108/58 O2 Sat by Pulse 87 86 83 L Oximetry 07/27/20 07/27/20 07/27/20 09:20 09:30 10:00 Temperature Pulse Rate 108 H 109 H Pulse Rate [ 107 H Bilateral Throughout] Pulse Rate [ From Monitor] Respiratory 15 13 Rate Respiratory 20 Rate [Bilateral Throughout] Blood Pressure 109/59 94/58 O2 Sat by Pulse 84 87 Oximetry 07/27/20 07/27/20 07/27/20 10:30 11:00 11:30 Temperature Pulse Rate 109 H 109 H 101 H Pulse Rate [ Bilateral Throughout] Pulse Rate [ From Monitor] Respiratory 10 L 14 13 Rate Respiratory Rate [Bilateral Throughout] Blood Pressure 114/57 109/53 103/52 O2 Sat by Pulse 90 92 91 Oximetry 07/27/20 07/27/20 11:58 12:00 Temperature Pulse Rate 103 H 107 H Pulse Rate [ Bilateral Throughout] Pulse Rate [ From Monitor] Respiratory 9 L Rate Respiratory Rate [Bilateral Throughout] Blood Pressure 102/51 94/55 O2 Sat by Pulse 93 93 Oximetry Constitutional: appears uncomfortable, other (middle aged obese female with mildly increased respiratory effort at rest on MVS) Eyes: non-icteric ENT: oropharynx moist, other (ETT 23cm YANET) Neck: supple, no lymphadenopathy, no JVD Effort: mildly labored Ascultation: Bilateral: diminished breath sounds, rhonchi (scant ), other (+ mi ld accesory muscle use) Percussion: Bilateral: not dull Cardiovascular: regular rate and rhythm, other (S1,S2) Gastrointestinal: normoactive bowel sounds, soft, non-tender, non-distended Integumentary: normal Extremities: no cyanosis, no edema, pulses normal, no ischemia or petechiae Neurologic: normal mental status, non-focal exam (moves extremities), pupils equal and round Psychiatric: anxious CBC and BMP: 07/28/20 09:20 07/28/20 09:20 ABG, PT/INR, D-dimer: ABG ABG pH 7.444 pH Units (7.350-7.450) 07/27/20 04:30 POC ABG pCO2 46.1 mmHg (32.0-48.0) 07/22/20 03:26 ABG pCO2 53.3 mm Hg 07/27/20 04:30 POC ABG pO2 54.2 mmHg (83-108) L 07/22/20 03:26 ABG pO2 49.0 mm Hg (80.0-90.0) L 07/27/20 04:30 POC ABG HCO3 30.0 07/22/20 03:26 ABG O2 Saturation 87.6 % (95.0-99.0) L 07/27/20 04:30 PT/INR, D-dimer D-Dimer 826.36 ng/mlDDU (0-234) H 07/13/20 07:20 Abnormal lab findings: Abnormal Labs 07/06/20 07/06/20 07/07/20 05:24 17:16 04:50 WBC 13.5 H 12.7 H RBC Hgb Hct Lymph % (Auto) Lymph # (Auto) Seg Neutrophils % Seg Neuts % (Manual) 86.0 H 87.0 H Lymphocytes % (Manual) 6.0 L 9.0 L Seg Neutrophils # Seg Neutrophils # Man 11.6 H 11.0 H Lymphocytes # (Manual) 0.8 L 1.1 L D-Dimer ABG pH POC ABG pCO2 POC ABG pO2 ABG pO2 ABG HCO3 ABG O2 Saturation ABG Base Excess ABG Hemoglobin ABG Oxyhemoglobin ABG Sodium ABG Potassium ABG Chloride ABG Glucose Oxyhemoglobin Chloride Carbon Dioxide BUN Creatinine Glucose POC Glucose Calcium Ferritin Lactate Dehydrogenase 242 H C-Reactive Protein 7.30 H Total Protein Albumin Arterial Blood Glucose Arterial Blood Ionized Calcium Coronavirus (PCR) SARS-CoV-2 IgG Ab 07/07/20 07/07/20 07/07/20 04:50 14:22 14:22 WBC RBC Hgb Hct Lymph % (Auto) Lymph # (Auto) Seg Neutrophils % Seg Neuts % (Manual) Lymphocytes % (Manual) Seg Neutrophils # Seg Neutrophils # Man Lymphocytes # (Manual) D-Dimer ABG pH POC ABG pCO2 POC ABG pO2 ABG pO2 ABG HCO3 ABG O2 Saturation ABG Base Excess ABG Hemoglobin ABG Oxyhemoglobin ABG Sodium ABG Potassium ABG Chloride ABG Glucose Oxyhemoglobin Chloride Carbon Dioxide BUN 18 H Creatinine Glucose 138 H POC Glucose Calcium Ferritin 228.2 H Lactate Dehydrogenase 277 H C-Reactive Protein Total Protein 5.9 L Albumin 3.4 L Arterial Blood Glucose Arterial Blood Ionized Calcium Coronavirus (PCR) SARS-CoV-2 IgG Ab 07/08/20 07/08/20 07/08/20 11:18 12:57 16:13 WBC RBC Hgb Hct Lymph % (Auto) Lymph # (Auto) Seg Neutrophils % Seg Neuts % (Manual) Lymphocytes % (Manual) Seg Neutrophils # Seg Neutrophils # Man Lymphocytes # (Manual) D-Dimer ABG pH POC ABG pCO2 POC ABG pO2 ABG pO2 39.3 L* ABG HCO3 ABG O2 Saturation 76.8 L ABG Base Excess ABG Hemoglobin ABG Oxyhemoglobin ABG Sodium ABG Potassium ABG Chloride ABG Glucose Oxyhemoglobin 75.3 L Chloride Carbon Dioxide 20 L D BUN Creatinine Glucose 135 H POC Glucose 106 H Calcium 8.0 L Ferritin Lactate Dehydrogenase C-Reactive Protein Total Protein Albumin Arterial Blood Glucose Arterial Blood Ionized Calcium Coronavirus (PCR) SARS-CoV-2 IgG Ab 07/08/20 07/08/20 07/09/20 17:04 18:45 04:00 WBC 15.6 H RBC Hgb Hct Lymph % (Auto) 4.7 L Lymph # (Auto) 0.7 L Seg Neutrophils % Seg Neuts % (Manual) Lymphocytes % (Manual) Seg Neutrophils # 14.2 H Seg Neutrophils # Man Lymphocytes # (Manual) D-Dimer ABG pH POC ABG pCO2 POC ABG pO2 ABG pO2 181.8 H ABG HCO3 ABG O2 Saturation 99.1 H ABG Base Excess ABG Hemoglobin 11.4 L ABG Oxyhemoglobin ABG Sodium ABG Potassium ABG Chloride ABG Glucose Oxyhemoglobin Chloride Carbon Dioxide BUN Creatinine Glucose POC Glucose 117 H Calcium Ferritin Lactate Dehydrogenase C-Reactive Protein Total Protein Albumin Arterial Blood Glucose Arterial Blood Ionized Calcium Coronavirus (PCR) SARS-CoV-2 IgG Ab 07/09/20 07/09/20 07/09/20 04:00 04:00 04:49 WBC RBC Hgb Hct Lymph % (Auto) Lymph # (Auto) Seg Neutrophils % Seg Neuts % (Manual) Lymphocytes % (Manual) Seg Neutrophils # Seg Neutrophils # Man Lymphocytes # (Manual) D-Dimer ABG pH POC ABG pCO2 POC ABG pO2 ABG pO2 ABG HCO3 26.2 H ABG O2 Saturation ABG Base Excess ABG Hemoglobin 11.2 L ABG Oxyhemoglobin ABG Sodium ABG Potassium ABG Chloride ABG Glucose Oxyhemoglobin 94.9 L Chloride Carbon Dioxide BUN Creatinine Glucose 158 H POC Glucose Calcium 8.2 L Ferritin 320.0 H Lactate Dehydrogenase 391 H C-Reactive Protein 9.50 H Total Protein 5.9 L Albumin 3.2 L Arterial Blood Glucose Arterial Blood Ionized Calcium Coronavirus (PCR) SARS-CoV-2 IgG Ab 07/09/20 07/09/20 07/09/20 11:56 17:49 23:39 WBC RBC Hgb Hct Lymph % (Auto) Lymph # (Auto) Seg Neutrophils % Seg Neuts % (Manual) Lymphocytes % (Manual) Seg Neutrophils # Seg Neutrophils # Man Lymphocytes # (Manual) D-Dimer ABG pH POC ABG pCO2 POC ABG pO2 ABG pO2 ABG HCO3 ABG O2 Saturation ABG Base Excess ABG Hemoglobin ABG Oxyhemoglobin ABG Sodium ABG Potassium ABG Chloride ABG Glucose Oxyhemoglobin Chloride Carbon Dioxide BUN Creatinine Glucose POC Glucose 156 H 119 H 145 H Calcium Ferritin Lactate Dehydrogenase C-Reactive Protein Total Protein Albumin Arterial Blood Glucose Arterial Blood Ionized Calcium Coronavirus (PCR) SARS-CoV-2 IgG Ab 07/10/20 07/10/20 07/10/20 03:32 05:26 11:22 WBC RBC Hgb Hct Lymph % (Auto) Lymph # (Auto) Seg Neutrophils % Seg Neuts % (Manual) Lymphocytes % (Manual) Seg Neutrophils # Seg Neutrophils # Man Lymphocytes # (Manual) D-Dimer ABG pH POC ABG pCO2 POC ABG pO2 ABG pO2 75.7 L ABG HCO3 27.5 H ABG O2 Saturation ABG Base Excess ABG Hemoglobin 9.3 L ABG Oxyhemoglobin ABG Sodium ABG Potassium ABG Chloride ABG Glucose Oxyhemoglobin 94.7 L Chloride Carbon Dioxide BUN Creatinine Glucose POC Glucose 156 H 148 H Calcium Ferritin Lactate Dehydrogenase C-Reactive Protein Total Protein Albumin Arterial Blood Glucose Arterial Blood Ionized Calcium Coronavirus (PCR) SARS-CoV-2 IgG Ab 07/10/20 07/10/20 07/10/20 12:10 12:10 18:20 WBC 14.1 H RBC 3.33 L Hgb 9.9 L Hct Lymph % (Auto) Lymph # (Auto) Seg Neutrophils % Seg Neuts % (Manual) 89.0 H Lymphocytes % (Manual) 8.0 L Seg Neutrophils # Seg Neutrophils # Man 12.5 H Lymphocytes # (Manual) 1.1 L D-Dimer ABG pH POC ABG pCO2 POC ABG pO2 ABG pO2 ABG HCO3 ABG O2 Saturation ABG Base Excess ABG Hemoglobin ABG Oxyhemoglobin ABG Sodium ABG Potassium ABG Chloride ABG Glucose Oxyhemoglobin Chloride Carbon Dioxide BUN 21 H Creatinine Glucose 154 H POC Glucose 181 H Calcium 8.0 L Ferritin Lactate Dehydrogenase C-Reactive Protein Total Protein 5.4 L Albumin 3.0 L Arterial Blood Glucose Arterial Blood Ionized Calcium Coronavirus (PCR) SARS-CoV-2 IgG Ab 07/10/20 07/11/20 07/11/20 23:51 04:05 05:43 WBC RBC Hgb Hct Lymph % (Auto) Lymph # (Auto) Seg Neutrophils % Seg Neuts % (Manual) Lymphocytes % (Manual) Seg Neutrophils # Seg Neutrophils # Man Lymphocytes # (Manual) D-Dimer ABG pH 7.348 L POC ABG pCO2 POC ABG pO2 ABG pO2 93.6 H ABG HCO3 28.5 H ABG O2 Saturation ABG Base Excess ABG Hemoglobin 10.1 L ABG Oxyhemoglobin ABG Sodium ABG Potassium ABG Chloride ABG Glucose Oxyhemoglobin Chloride Carbon Dioxide BUN Creatinine Glucose POC Glucose 116 H 132 H Calcium Ferritin Lactate Dehydrogenase C-Reactive Protein Total Protein Albumin Arterial Blood Glucose Arterial Blood Ionized Calcium Coronavirus (PCR) SARS-CoV-2 IgG Ab 07/11/20 07/11/20 07/11/20 09:11 09:11 09:11 WBC 15.8 H RBC 3.44 L Hgb Hct Lymph % (Auto) Lymph # (Auto) Seg Neutrophils % Seg Neuts % (Manual) 92.0 H Lymphocytes % (Manual) 4.0 L Seg Neutrophils # Seg Neutrophils # Man 14.5 H Lymphocytes # (Manual) 0.6 L D-Dimer 360.61 H ABG pH POC ABG pCO2 POC ABG pO2 ABG pO2 ABG HCO3 ABG O2 Saturation ABG Base Excess ABG Hemoglobin ABG Oxyhemoglobin ABG Sodium ABG Potassium ABG Chloride ABG Glucose Oxyhemoglobin Chloride 107.1 H Carbon Dioxide BUN 22 H Creatinine Glucose 149 H POC Glucose Calcium 7.8 L Ferritin Lactate Dehydrogenase 483 H C-Reactive Protein 2.30 H Total Protein 4.9 L Albumin 3.0 L Arterial Blood Glucose Arterial Blood Ionized Calcium Coronavirus (PCR) SARS-CoV-2 IgG Ab 07/11/20 07/11/20 07/11/20 09:11 12:16 17:55 WBC RBC Hgb Hct Lymph % (Auto) Lymph # (Auto) Seg Neutrophils % Seg Neuts % (Manual) Lymphocytes % (Manual) Seg Neutrophils # Seg Neutrophils # Man Lymphocytes # (Manual) D-Dimer ABG pH POC ABG pCO2 POC ABG pO2 ABG pO2 ABG HCO3 ABG O2 Saturation ABG Base Excess ABG Hemoglobin ABG Oxyhemoglobin ABG Sodium ABG Potassium ABG Chloride ABG Glucose Oxyhemoglobin Chloride Carbon Dioxide BUN Creatinine Glucose POC Glucose 157 H 166 H Calcium Ferritin 371.2 H Lactate Dehydrogenase C-Reactive Protein Total Protein Albumin Arterial Blood Glucose Arterial Blood Ionized Calcium Coronavirus (PCR) SARS-CoV-2 IgG Ab 07/12/20 07/12/20 07/12/20 00:32 04:00 04:00 WBC RBC 3.52 L Hgb Hct Lymph % (Auto) Lymph # (Auto) Seg Neutrophils % Seg Neuts % (Manual) 90.0 H Lymphocytes % (Manual) 4.0 L Seg Neutrophils # Seg Neutrophils # Man 9.5 H Lymphocytes # (Manual) 0.4 L D-Dimer ABG pH POC ABG pCO2 POC ABG pO2 ABG pO2 ABG HCO3 ABG O2 Saturation ABG Base Excess ABG Hemoglobin ABG Oxyhemoglobin ABG Sodium ABG Potassium ABG Chloride ABG Glucose Oxyhemoglobin Chloride Carbon Dioxide 31 H BUN 21 H Creatinine Glucose 175 H POC Glucose 178 H Calcium 8.0 L Ferritin Lactate Dehydrogenase C-Reactive Protein Total Protein 5.4 L Albumin 3.0 L Arterial Blood Glucose Arterial Blood Ionized Calcium Coronavirus (PCR) SARS-CoV-2 IgG Ab 07/12/20 07/12/20 07/12/20 04:01 05:47 12:09 WBC RBC Hgb Hct Lymph % (Auto) Lymph # (Auto) Seg Neutrophils % Seg Neuts % (Manual) Lymphocytes % (Manual) Seg Neutrophils # Seg Neutrophils # Man Lymphocytes # (Manual) D-Dimer ABG pH 7.456 H POC ABG pCO2 POC ABG pO2 ABG pO2 ABG HCO3 ABG O2 Saturation ABG Base Excess ABG Hemoglobin 10.6 L ABG Oxyhemoglobin ABG Sodium ABG Potassium ABG Chloride ABG Glucose 177 H Oxyhemoglobin Chloride Carbon Dioxide BUN Creatinine Glucose POC Glucose 185 H 227 H Calcium Ferritin Lactate Dehydrogenase C-Reactive Protein Total Protein Albumin Arterial Blood Glucose 177 H Arterial Blood Ionized Calcium 4.5 L Coronavirus (PCR) SARS-CoV-2 IgG Ab 07/12/20 07/12/20 07/13/20 17:34 23:57 05:06 WBC RBC Hgb Hct Lymph % (Auto) Lymph # (Auto) Seg Neutrophils % Seg Neuts % (Manual) Lymphocytes % (Manual) Seg Neutrophils # Seg Neutrophils # Man Lymphocytes # (Manual) D-Dimer ABG pH POC ABG pCO2 POC ABG pO2 ABG pO2 ABG HCO3 ABG O2 Saturation ABG Base Excess ABG Hemoglobin ABG Oxyhemoglobin ABG Sodium ABG Potassium ABG Chloride ABG Glucose Oxyhemoglobin Chloride Carbon Dioxide BUN Creatinine Glucose POC Glucose 202 H 163 H 166 H Calcium Ferritin Lactate Dehydrogenase C-Reactive Protein Total Protein Albumin Arterial Blood Glucose Arterial Blood Ionized Calcium Coronavirus (PCR) SARS-CoV-2 IgG Ab 07/13/20 07/13/20 07/13/20 07:20 07:20 07:20 WBC 20.5 H RBC Hgb Hct Lymph % (Auto) Lymph # (Auto) Seg Neutrophils % Seg Neuts % (Manual) 93.0 H Lymphocytes % (Manual) 3.0 L Seg Neutrophils # Seg Neutrophils # Man 19.1 H Lymphocytes # (Manual) 0.6 L D-Dimer 826.36 H ABG pH POC ABG pCO2 POC ABG pO2 ABG pO2 ABG HCO3 ABG O2 Saturation ABG Base Excess ABG Hemoglobin ABG Oxyhemoglobin ABG Sodium ABG Potassium ABG Chloride ABG Glucose Oxyhemoglobin Chloride Carbon Dioxide 31 H BUN 25 H Creatinine Glucose 163 H POC Glucose Calcium 8.1 L Ferritin Lactate Dehydrogenase 512 H C-Reactive Protein 1.80 H Total Protein 5.8 L Albumin 3.2 L Arterial Blood Glucose Arterial Blood Ionized Calcium Coronavirus (PCR) SARS-CoV-2 IgG Ab 07/13/20 07/13/20 07/13/20 07:20 11:37 17:20 WBC RBC Hgb Hct Lymph % (Auto) Lymph # (Auto) Seg Neutrophils % Seg Neuts % (Manual) Lymphocytes % (Manual) Seg Neutrophils # Seg Neutrophils # Man Lymphocytes # (Manual) D-Dimer ABG pH POC ABG pCO2 POC ABG pO2 ABG pO2 ABG HCO3 ABG O2 Saturation ABG Base Excess ABG Hemoglobin ABG Oxyhemoglobin ABG Sodium ABG Potassium ABG Chloride ABG Glucose Oxyhemoglobin Chloride Carbon Dioxide BUN Creatinine Glucose POC Glucose 232 H 210 H Calcium Ferritin 219.8 H Lactate Dehydrogenase C-Reactive Protein Total Protein Albumin Arterial Blood Glucose Arterial Blood Ionized Calcium Coronavirus (PCR) SARS-CoV-2 IgG Ab 07/13/20 07/13/20 07/14/20 23:57 Unknown 05:22 WBC RBC Hgb Hct Lymph % (Auto) Lymph # (Auto) Seg Neutrophils % Seg Neuts % (Manual) Lymphocytes % (Manual) Seg Neutrophils # Seg Neutrophils # Man Lymphocytes # (Manual) D-Dimer ABG pH 7.341 L POC ABG pCO2 POC ABG pO2 133.0 H ABG pO2 56.5 L ABG HCO3 29.7 H ABG O2 Saturation 89.3 L ABG Base Excess ABG Hemoglobin 11.0 L ABG Oxyhemoglobin ABG Sodium ABG Potassium ABG Chloride ABG Glucose 207 H Oxyhemoglobin 87.7 L Chloride Carbon Dioxide BUN Creatinine Glucose POC Glucose 190 H Calcium Ferritin Lactate Dehydrogenase C-Reactive Protein Total Protein Albumin Arterial Blood Glucose 207 H Arterial Blood Ionized Calcium 4.5 L Coronavirus (PCR) SARS-CoV-2 IgG Ab 07/14/20 07/14/20 07/14/20 05:54 11:16 17:50 WBC RBC Hgb Hct Lymph % (Auto) Lymph # (Auto) Seg Neutrophils % Seg Neuts % (Manual) Lymphocytes % (Manual) Seg Neutrophils # Seg Neutrophils # Man Lymphocytes # (Manual) D-Dimer ABG pH POC ABG pCO2 POC ABG pO2 ABG pO2 ABG HCO3 ABG O2 Saturation ABG Base Excess ABG Hemoglobin ABG Oxyhemoglobin ABG Sodium ABG Potassium ABG Chloride ABG Glucose Oxyhemoglobin Chloride Carbon Dioxide BUN Creatinine Glucose POC Glucose 206 H 196 H 205 H Calcium Ferritin Lactate Dehydrogenase C-Reactive Protein Total Protein Albumin Arterial Blood Glucose Arterial Blood Ionized Calcium Coronavirus (PCR) SARS-CoV-2 IgG Ab 07/14/20 07/15/20 07/15/20 23:28 03:16 06:12 WBC RBC Hgb Hct Lymph % (Auto) Lymph # (Auto) Seg Neutrophils % Seg Neuts % (Manual) Lymphocytes % (Manual) Seg Neutrophils # Seg Neutrophils # Man Lymphocytes # (Manual) D-Dimer ABG pH POC ABG pCO2 49.2 H POC ABG pO2 120.3 H ABG pO2 ABG HCO3 ABG O2 Saturation ABG Base Excess ABG Hemoglobin 9.5 L ABG Oxyhemoglobin ABG Sodium ABG Potassium ABG Chloride ABG Glucose 148 H Oxyhemoglobin Chloride Carbon Dioxide BUN Creatinine Glucose POC Glucose 160 H 178 H Calcium Ferritin Lactate Dehydrogenase C-Reactive Protein Total Protein Albumin Arterial Blood Glucose 148 H Arterial Blood Ionized Calcium Coronavirus (PCR) SARS-CoV-2 IgG Ab 07/15/20 07/15/20 07/15/20 09:00 12:32 14:30 WBC RBC Hgb Hct Lymph % (Auto) Lymph # (Auto) Seg Neutrophils % Seg Neuts % (Manual) Lymphocytes % (Manual) Seg Neutrophils # Seg Neutrophils # Man Lymphocytes # (Manual) D-Dimer ABG pH POC ABG pCO2 POC ABG pO2 ABG pO2 ABG HCO3 ABG O2 Saturation ABG Base Excess ABG Hemoglobin ABG Oxyhemoglobin ABG Sodium ABG Potassium ABG Chloride ABG Glucose Oxyhemoglobin Chloride Carbon Dioxide BUN Creatinine Glucose POC Glucose 173 H Calcium Ferritin Lactate Dehydrogenase 531 H C-Reactive Protein Total Protein Albumin Arterial Blood Glucose Arterial Blood Ionized Calcium Coronavirus (PCR) SARS-CoV-2 IgG Ab Reactive A 07/15/20 07/15/20 07/16/20 18:24 23:35 04:03 WBC RBC Hgb Hct Lymph % (Auto) Lymph # (Auto) Seg Neutrophils % Seg Neuts % (Manual) Lymphocytes % (Manual) Seg Neutrophils # Seg Neutrophils # Man Lymphocytes # (Manual) D-Dimer ABG pH POC ABG pCO2 POC ABG pO2 ABG pO2 72.7 L ABG HCO3 35.5 H ABG O2 Saturation ABG Base Excess 9.4 H ABG Hemoglobin 10.6 L ABG Oxyhemoglobin ABG Sodium ABG Potassium ABG Chloride ABG Glucose Oxyhemoglobin 93.6 L Chloride Carbon Dioxide BUN Creatinine Glucose POC Glucose 173 H 181 H Calcium Ferritin Lactate Dehydrogenase C-Reactive Protein Total Protein Albumin Arterial Blood Glucose Arterial Blood Ionized Calcium Coronavirus (PCR) SARS-CoV-2 IgG Ab 07/16/20 07/16/20 07/16/20 05:35 09:00 09:00 WBC 16.5 H RBC 3.59 L Hgb Hct Lymph % (Auto) Lymph # (Auto) Seg Neutrophils % Seg Neuts % (Manual) 96.0 H Lymphocytes % (Manual) 3.0 L Seg Neutrophils # Seg Neutrophils # Man 15.8 H Lymphocytes # (Manual) 0.5 L D-Dimer ABG pH POC ABG pCO2 POC ABG pO2 ABG pO2 ABG HCO3 ABG O2 Saturation ABG Base Excess ABG Hemoglobin ABG Oxyhemoglobin ABG Sodium ABG Potassium ABG Chloride ABG Glucose Oxyhemoglobin Chloride Carbon Dioxide 39 H D BUN 25 H Creatinine 0.4 L Glucose 167 H POC Glucose 129 H Calcium 8.3 L Ferritin Lactate Dehydrogenase C-Reactive Protein Total Protein Albumin Arterial Blood Glucose Arterial Blood Ionized Calcium Coronavirus (PCR) SARS-CoV-2 IgG Ab 07/16/20 07/16/20 07/17/20 12:32 18:28 00:09 WBC RBC Hgb Hct Lymph % (Auto) Lymph # (Auto) Seg Neutrophils % Seg Neuts % (Manual) Lymphocytes % (Manual) Seg Neutrophils # Seg Neutrophils # Man Lymphocytes # (Manual) D-Dimer ABG pH POC ABG pCO2 POC ABG pO2 ABG pO2 ABG HCO3 ABG O2 Saturation ABG Base Excess ABG Hemoglobin ABG Oxyhemoglobin ABG Sodium ABG Potassium ABG Chloride ABG Glucose Oxyhemoglobin Chloride Carbon Dioxide BUN Creatinine Glucose POC Glucose 187 H 174 H 184 H Calcium Ferritin Lactate Dehydrogenase C-Reactive Protein Total Protein Albumin Arterial Blood Glucose Arterial Blood Ionized Calcium Coronavirus (PCR) SARS-CoV-2 IgG Ab 07/17/20 07/17/20 07/17/20 04:30 05:47 13:03 WBC RBC Hgb Hct Lymph % (Auto) Lymph # (Auto) Seg Neutrophils % Seg Neuts % (Manual) Lymphocytes % (Manual) Seg Neutrophils # Seg Neutrophils # Man Lymphocytes # (Manual) D-Dimer ABG pH POC ABG pCO2 POC ABG pO2 ABG pO2 ABG HCO3 38.1 H ABG O2 Saturation ABG Base Excess 11.3 H ABG Hemoglobin 10.5 L ABG Oxyhemoglobin ABG Sodium ABG Potassium ABG Chloride ABG Glucose Oxyhemoglobin Chloride Carbon Dioxide BUN Creatinine Glucose POC Glucose 135 H 210 H Calcium Ferritin Lactate Dehydrogenase C-Reactive Protein Total Protein Albumin Arterial Blood Glucose Arterial Blood Ionized Calcium Coronavirus (PCR) SARS-CoV-2 IgG Ab 07/17/20 07/17/20 07/18/20 16:50 23:39 04:01 WBC RBC Hgb Hct Lymph % (Auto) Lymph # (Auto) Seg Neutrophils % Seg Neuts % (Manual) Lymphocytes % (Manual) Seg Neutrophils # Seg Neutrophils # Man Lymphocytes # (Manual) D-Dimer ABG pH POC ABG pCO2 56.8 H POC ABG pO2 61.9 L ABG pO2 ABG HCO3 ABG O2 Saturation ABG Base Excess ABG Hemoglobin 11.7 L ABG Oxyhemoglobin ABG Sodium 134.2 L ABG Potassium 4.7 H ABG Chloride 97.0 L ABG Glucose 173 H Oxyhemoglobin Chloride Carbon Dioxide BUN Creatinine Glucose POC Glucose 193 H 163 H Calcium Ferritin Lactate Dehydrogenase C-Reactive Protein Total Protein Albumin Arterial Blood Glucose 173 H Arterial Blood Ionized Calcium Coronavirus (PCR) SARS-CoV-2 IgG Ab 07/18/20 07/18/20 07/18/20 05:41 12:03 17:26 WBC RBC Hgb Hct Lymph % (Auto) Lymph # (Auto) Seg Neutrophils % Seg Neuts % (Manual) Lymphocytes % (Manual) Seg Neutrophils # Seg Neutrophils # Man Lymphocytes # (Manual) D-Dimer ABG pH POC ABG pCO2 POC ABG pO2 ABG pO2 ABG HCO3 ABG O2 Saturation ABG Base Excess ABG Hemoglobin ABG Oxyhemoglobin ABG Sodium ABG Potassium ABG Chloride ABG Glucose Oxyhemoglobin Chloride Carbon Dioxide BUN Creatinine Glucose POC Glucose 153 H 177 H 160 H Calcium Ferritin Lactate Dehydrogenase C-Reactive Protein Total Protein Albumin Arterial Blood Glucose Arterial Blood Ionized Calcium Coronavirus (PCR) SARS-CoV-2 IgG Ab 07/18/20 07/19/20 07/19/20 23:58 04:15 05:05 WBC RBC Hgb Hct Lymph % (Auto) Lymph # (Auto) Seg Neutrophils % Seg Neuts % (Manual) Lymphocytes % (Manual) Seg Neutrophils # Seg Neutrophils # Man Lymphocytes # (Manual) D-Dimer ABG pH 7.465 H POC ABG pCO2 49.1 H POC ABG pO2 49.4 L ABG pO2 ABG HCO3 ABG O2 Saturation ABG Base Excess ABG Hemoglobin 11.6 L ABG Oxyhemoglobin ABG Sodium 132.3 L ABG Potassium ABG Chloride 97.0 L ABG Glucose 148 H Oxyhemoglobin Chloride Carbon Dioxide BUN Creatinine Glucose POC Glucose 144 H 117 H Calcium Ferritin Lactate Dehydrogenase C-Reactive Protein Total Protein Albumin Arterial Blood Glucose 148 H Arterial Blood Ionized Calcium Coronavirus (PCR) SARS-CoV-2 IgG Ab 07/19/20 07/19/20 07/19/20 08:30 08:30 13:21 WBC 17.2 H RBC 3.59 L Hgb Hct Lymph % (Auto) Lymph # (Auto) Seg Neutrophils % Seg Neuts % (Manual) Lymphocytes % (Manual) Seg Neutrophils # Seg Neutrophils # Man Lymphocytes # (Manual) D-Dimer ABG pH POC ABG pCO2 POC ABG pO2 ABG pO2 ABG HCO3 ABG O2 Saturation ABG Base Excess ABG Hemoglobin ABG Oxyhemoglobin ABG Sodium ABG Potassium ABG Chloride ABG Glucose Oxyhemoglobin Chloride 95.7 L Carbon Dioxide 37 H BUN 20 H Creatinine 0.4 L Glucose 125 H POC Glucose 137 H Calcium 8.1 L Ferritin Lactate Dehydrogenase C-Reactive Protein Total Protein Albumin Arterial Blood Glucose Arterial Blood Ionized Calcium Coronavirus (PCR) SARS-CoV-2 IgG Ab 07/19/20 07/19/20 07/20/20 16:29 17:28 00:25 WBC RBC Hgb Hct Lymph % (Auto) Lymph # (Auto) Seg Neutrophils % Seg Neuts % (Manual) Lymphocytes % (Manual) Seg Neutrophils # Seg Neutrophils # Man Lymphocytes # (Manual) D-Dimer ABG pH POC ABG pCO2 53.4 H POC ABG pO2 71.0 L ABG pO2 ABG HCO3 ABG O2 Saturation ABG Base Excess ABG Hemoglobin 11.2 L ABG Oxyhemoglobin 93.6 L ABG Sodium 130.9 L ABG Potassium ABG Chloride 95.0 L ABG Glucose 188 H Oxyhemoglobin Chloride Carbon Dioxide BUN Creatinine Glucose POC Glucose 174 H 188 H Calcium Ferritin Lactate Dehydrogenase C-Reactive Protein Total Protein Albumin Arterial Blood Glucose 188 H Arterial Blood Ionized Calcium 4.4 L Coronavirus (PCR) SARS-CoV-2 IgG Ab 07/20/20 07/20/20 07/20/20 04:14 05:23 12:12 WBC RBC Hgb Hct Lymph % (Auto) Lymph # (Auto) Seg Neutrophils % Seg Neuts % (Manual) Lymphocytes % (Manual) Seg Neutrophils # Seg Neutrophils # Man Lymphocytes # (Manual) D-Dimer ABG pH POC ABG pCO2 52.7 H POC ABG pO2 59.5 L ABG pO2 ABG HCO3 ABG O2 Saturation ABG Base Excess ABG Hemoglobin 10.6 L ABG Oxyhemoglobin ABG Sodium 134.4 L ABG Potassium ABG Chloride ABG Glucose 176 H Oxyhemoglobin Chloride Carbon Dioxide BUN Creatinine Glucose POC Glucose 212 H 190 H Calcium Ferritin Lactate Dehydrogenase C-Reactive Protein Total Protein Albumin Arterial Blood Glucose 176 H Arterial Blood Ionized Calcium 4.5 L Coronavirus (PCR) SARS-CoV-2 IgG Ab 07/20/20 07/21/20 07/21/20 16:59 00:01 04:30 WBC RBC Hgb Hct Lymph % (Auto) Lymph # (Auto) Seg Neutrophils % Seg Neuts % (Manual) Lymphocytes % (Manual) Seg Neutrophils # Seg Neutrophils # Man Lymphocytes # (Manual) D-Dimer ABG pH 7.468 H POC ABG pCO2 POC ABG pO2 63.3 L ABG pO2 ABG HCO3 ABG O2 Saturation ABG Base Excess ABG Hemoglobin 11 L ABG Oxyhemoglobin ABG Sodium 135.0 L ABG Potassium ABG Chloride ABG Glucose 204 H Oxyhemoglobin Chloride Carbon Dioxide BUN Creatinine Glucose POC Glucose 201 H 177 H Calcium Ferritin Lactate Dehydrogenase C-Reactive Protein Total Protein Albumin Arterial Blood Glucose 204 H Arterial Blood Ionized Calcium 4.5 L Coronavirus (PCR) SARS-CoV-2 IgG Ab 07/21/20 07/21/20 07/21/20 05:26 11:50 17:16 WBC RBC Hgb Hct Lymph % (Auto) Lymph # (Auto) Seg Neutrophils % Seg Neuts % (Manual) Lymphocytes % (Manual) Seg Neutrophils # Seg Neutrophils # Man Lymphocytes # (Manual) D-Dimer ABG pH POC ABG pCO2 POC ABG pO2 ABG pO2 ABG HCO3 ABG O2 Saturation ABG Base Excess ABG Hemoglobin ABG Oxyhemoglobin ABG Sodium ABG Potassium ABG Chloride ABG Glucose Oxyhemoglobin Chloride Carbon Dioxide BUN Creatinine Glucose POC Glucose 175 H 157 H 148 H Calcium Ferritin Lactate Dehydrogenase C-Reactive Protein Total Protein Albumin Arterial Blood Glucose Arterial Blood Ionized Calcium Coronavirus (PCR) SARS-CoV-2 IgG Ab 07/22/20 07/22/20 07/22/20 00:01 03:26 05:16 WBC RBC Hgb Hct Lymph % (Auto) Lymph # (Auto) Seg Neutrophils % Seg Neuts % (Manual) Lymphocytes % (Manual) Seg Neutrophils # Seg Neutrophils # Man Lymphocytes # (Manual) D-Dimer ABG pH POC ABG pCO2 POC ABG pO2 54.2 L ABG pO2 ABG HCO3 ABG O2 Saturation ABG Base Excess ABG Hemoglobin 10.9 L ABG Oxyhemoglobin ABG Sodium 133.7 L ABG Potassium ABG Chloride ABG Glucose 217 H Oxyhemoglobin Chloride Carbon Dioxide BUN Creatinine Glucose POC Glucose 172 H 182 H Calcium Ferritin Lactate Dehydrogenase C-Reactive Protein Total Protein Albumin Arterial Blood Glucose 217 H Arterial Blood Ionized Calcium 4.5 L Coronavirus (PCR) SARS-CoV-2 IgG Ab 07/22/20 07/22/20 07/23/20 11:43 17:08 04:00 WBC 11.6 H RBC 3.54 L Hgb Hct Lymph % (Auto) Lymph # (Auto) Seg Neutrophils % Seg Neuts % (Manual) 94.0 H Lymphocytes % (Manual) 5.0 L Seg Neutrophils # Seg Neutrophils # Man 10.9 H Lymphocytes # (Manual) 0.6 L D-Dimer ABG pH POC ABG pCO2 POC ABG pO2 ABG pO2 ABG HCO3 ABG O2 Saturation ABG Base Excess ABG Hemoglobin ABG Oxyhemoglobin ABG Sodium ABG Potassium ABG Chloride ABG Glucose Oxyhemoglobin Chloride Carbon Dioxide BUN Creatinine Glucose POC Glucose 159 H 163 H Calcium Ferritin Lactate Dehydrogenase C-Reactive Protein Total Protein Albumin Arterial Blood Glucose Arterial Blood Ionized Calcium Coronavirus (PCR) SARS-CoV-2 IgG Ab 07/23/20 07/23/20 07/23/20 04:00 04:53 04:54 WBC RBC Hgb Hct Lymph % (Auto) Lymph # (Auto) Seg Neutrophils % Seg Neuts % (Manual) Lymphocytes % (Manual) Seg Neutrophils # Seg Neutrophils # Man Lymphocytes # (Manual) D-Dimer ABG pH 7.453 H POC ABG pCO2 POC ABG pO2 ABG pO2 ABG HCO3 32.4 H ABG O2 Saturation ABG Base Excess 7.5 H ABG Hemoglobin 10.7 L ABG Oxyhemoglobin ABG Sodium ABG Potassium ABG Chloride ABG Glucose Oxyhemoglobin Chloride Carbon Dioxide 35 H BUN Creatinine 0.4 L Glucose 112 H POC Glucose 169 H Calcium 8.2 L Ferritin Lactate Dehydrogenase C-Reactive Protein Total Protein Albumin Arterial Blood Glucose Arterial Blood Ionized Calcium Coronavirus (PCR) SARS-CoV-2 IgG Ab 07/23/20 07/23/20 07/23/20 11:50 23:19 Unknown WBC RBC Hgb Hct Lymph % (Auto) Lymph # (Auto) Seg Neutrophils % Seg Neuts % (Manual) Lymphocytes % (Manual) Seg Neutrophils # Seg Neutrophils # Man Lymphocytes # (Manual) D-Dimer ABG pH POC ABG pCO2 POC ABG pO2 ABG pO2 ABG HCO3 ABG O2 Saturation ABG Base Excess ABG Hemoglobin ABG Oxyhemoglobin ABG Sodium ABG Potassium ABG Chloride ABG Glucose Oxyhemoglobin Chloride Carbon Dioxide BUN Creatinine Glucose POC Glucose 118 H 168 H Calcium Ferritin Lactate Dehydrogenase C-Reactive Protein Total Protein Albumin Arterial Blood Glucose Arterial Blood Ionized Calcium Coronavirus (PCR) Positive A SARS-CoV-2 IgG Ab 07/24/20 07/24/20 07/24/20 04:11 05:37 11:42 WBC RBC Hgb Hct Lymph % (Auto) Lymph # (Auto) Seg Neutrophils % Seg Neuts % (Manual) Lymphocytes % (Manual) Seg Neutrophils # Seg Neutrophils # Man Lymphocytes # (Manual) D-Dimer ABG pH POC ABG pCO2 POC ABG pO2 ABG pO2 54.4 L ABG HCO3 34.3 H ABG O2 Saturation 89.0 L ABG Base Excess 8.5 H ABG Hemoglobin 11.0 L ABG Oxyhemoglobin ABG Sodium ABG Potassium ABG Chloride ABG Glucose Oxyhemoglobin 87.0 L Chloride Carbon Dioxide BUN Creatinine Glucose POC Glucose 115 H 166 H Calcium Ferritin Lactate Dehydrogenase C-Reactive Protein Total Protein Albumin Arterial Blood Glucose Arterial Blood Ionized Calcium Coronavirus (PCR) SARS-CoV-2 IgG Ab 07/24/20 07/24/20 07/25/20 17:39 23:38 03:53 WBC RBC Hgb Hct Lymph % (Auto) Lymph # (Auto) Seg Neutrophils % Seg Neuts % (Manual) Lymphocytes % (Manual) Seg Neutrophils # Seg Neutrophils # Man Lymphocytes # (Manual) D-Dimer ABG pH POC ABG pCO2 POC ABG pO2 ABG pO2 175.9 H ABG HCO3 34.0 H ABG O2 Saturation 99.1 H ABG Base Excess 8.2 H ABG Hemoglobin 10.6 L ABG Oxyhemoglobin ABG Sodium ABG Potassium ABG Chloride ABG Glucose Oxyhemoglobin Chloride Carbon Dioxide BUN Creatinine Glucose POC Glucose 150 H 139 H Calcium Ferritin Lactate Dehydrogenase C-Reactive Protein Total Protein Albumin Arterial Blood Glucose Arterial Blood Ionized Calcium Coronavirus (PCR) SARS-CoV-2 IgG Ab 07/25/20 07/25/20 07/25/20 05:47 12:09 23:46 WBC RBC Hgb Hct Lymph % (Auto) Lymph # (Auto) Seg Neutrophils % Seg Neuts % (Manual) Lymphocytes % (Manual) Seg Neutrophils # Seg Neutrophils # Man Lymphocytes # (Manual) D-Dimer ABG pH POC ABG pCO2 POC ABG pO2 ABG pO2 ABG HCO3 ABG O2 Saturation ABG Base Excess ABG Hemoglobin ABG Oxyhemoglobin ABG Sodium ABG Potassium ABG Chloride ABG Glucose Oxyhemoglobin Chloride Carbon Dioxide BUN Creatinine Glucose POC Glucose 144 H 152 H 116 H Calcium Ferritin Lactate Dehydrogenase C-Reactive Protein Total Protein Albumin Arterial Blood Glucose Arterial Blood Ionized Calcium Coronavirus (PCR) SARS-CoV-2 IgG Ab 07/26/20 07/26/20 07/26/20 03:48 05:36 11:28 WBC RBC Hgb Hct Lymph % (Auto) Lymph # (Auto) Seg Neutrophils % Seg Neuts % (Manual) Lymphocytes % (Manual) Seg Neutrophils # Seg Neutrophils # Man Lymphocytes # (Manual) D-Dimer ABG pH POC ABG pCO2 POC ABG pO2 ABG pO2 73.4 L ABG HCO3 35.0 H ABG O2 Saturation ABG Base Excess 8.3 H ABG Hemoglobin 9.8 L ABG Oxyhemoglobin ABG Sodium ABG Potassium ABG Chloride ABG Glucose Oxyhemoglobin 93.7 L Chloride Carbon Dioxide BUN Creatinine Glucose POC Glucose 136 H 145 H Calcium Ferritin Lactate Dehydrogenase C-Reactive Protein Total Protein Albumin Arterial Blood Glucose Arterial Blood Ionized Calcium Coronavirus (PCR) SARS-CoV-2 IgG Ab 07/26/20 07/26/20 07/26/20 14:23 17:19 23:33 WBC 12.0 H RBC 3.12 L Hgb 9.5 L Hct 28.6 L Lymph % (Auto) 4.2 L Lymph # (Auto) 0.5 L Seg Neutrophils % 89.8 H Seg Neuts % (Manual) Lymphocytes % (Manual) Seg Neutrophils # 10.8 H Seg Neutrophils # Man Lymphocytes # (Manual) D-Dimer ABG pH POC ABG pCO2 POC ABG pO2 ABG pO2 ABG HCO3 ABG O2 Saturation ABG Base Excess ABG Hemoglobin ABG Oxyhemoglobin ABG Sodium ABG Potassium ABG Chloride ABG Glucose Oxyhemoglobin Chloride Carbon Dioxide BUN Creatinine Glucose POC Glucose 202 H 122 H Calcium Ferritin Lactate Dehydrogenase C-Reactive Protein Total Protein Albumin Arterial Blood Glucose Arterial Blood Ionized Calcium Coronavirus (PCR) SARS-CoV-2 IgG Ab 07/27/20 07/27/20 07/27/20 04:30 05:54 12:06 WBC RBC Hgb Hct Lymph % (Auto) Lymph # (Auto) Seg Neutrophils % Seg Neuts % (Manual) Lymphocytes % (Manual) Seg Neutrophils # Seg Neutrophils # Man Lymphocytes # (Manual) D-Dimer ABG pH POC ABG pCO2 POC ABG pO2 ABG pO2 49.0 L ABG HCO3 35.7 H ABG O2 Saturation 87.6 L ABG Base Excess 10.1 H ABG Hemoglobin 11.5 L ABG Oxyhemoglobin ABG Sodium ABG Potassium ABG Chloride ABG Glucose Oxyhemoglobin 85.4 L Chloride Carbon Dioxide BUN Creatinine Glucose POC Glucose 164 H 149 H Calcium Ferritin Lactate Dehydrogenase C-Reactive Protein Total Protein Albumin Arterial Blood Glucose Arterial Blood Ionized Calcium Coronavirus (PCR) SARS-CoV-2 IgG Ab Allied health notes reviewed: nursing
[2020-07-27] MEDS ORDERED: FUROSEMIDE 40 MG/4 ML INJ IV ONE (13:00)
[2020-07-27 13:29] LABS: ABG Base Excess 8.1 mmol/L (-2.0-3.0); ABG HCO3 37.6 mmol/L (20.0-26.0); ABG PCO2 75.9 mm Hg; ABG PH 7.313 pH Units (7.350-7.450); ABG PO2 107.5 mm Hg (80.0-90.0)
[2020-07-27 13:32] LABS: ABG Methemoglobin 0.6 % (0.0-1.5); ABG Oxygen Saturation 97.3 % (95.0-99.0)
[2020-07-27 14:58] LABS: Hematocrit 30.6 % (30.3-42.9); Mean Corpuscular HGB Conc 33 % (30-34); Mean Corpuscular Volume 92 fl (79-97); Platelet Count 153 K/mm3 (140-440); Red Blood Count 3.33 M/mm3 (3.65-5.03); Red Cell Distribution Width 14.6 % (13.2-15.2)
[2020-07-27 15:14] LABS: Blood Urea Nitrogen 18 mg/dL (7-17); Calcium 8.3 mg/dL (8.4-10.2); Hemolysis Index 11
[2020-07-27 15:15] LABS: BUN/Creatinine Ratio 30
[2020-07-27 16:44] LABS: Basophils % (Manual) 0 % (0.0-1.8); Eosinophils % (Manual) 0 % (0.0-4.3); Ovalocytes Rare; Tear Drop Cells Rare; Total Cells Counted 100
[2020-07-27 16:45] LABS: Platelet Estimate Consistent w Auto
[2020-07-27] MEDS: INSULIN GLARGINE 100 UNITS/ML SUB-Q SCH (18:26)
[2020-07-28] MEDS: QUEtiapine 100 MG TAB PO SCH ×3 (00:20→22:03)
[2020-07-28] MEDS: GABAPENTIN 300 MG CAP PO SCH ×4 (00:20→22:03)
[2020-07-28] MEDS: QUEtiapine 200 MG TAB PO SCH ×3 (00:20→22:02)
[2020-07-28] MEDS: ASCORBIC ACID 500 MG TAB PO SCH ×3 (00:20→22:03)
[2020-07-28] MEDS: POLYETHYLENE GLYCOL 3350 17 GM POWDER PO SCH ×2 (00:21→22:03)
[2020-07-28] MEDS: ZINC SULFATE 220 MG CAP PO SCH ×3 (00:21→22:03)
[2020-07-28] MEDS: DOCUSATE SODIUM 100 MG/10 ML ORAL LIQD PO SCH ×3 (00:21→22:04)
[2020-07-28] MEDS: ENOXAPARIN 30 MG/0.3 ML INJ SUB-Q SCH ×3 (00:21→22:02)
[2020-07-28] MEDS: INSULIN REGULAR, HUMAN 100 UNIT/ML 3ML VIAL SUB-Q SCH ×5 (00:22→23:55)
[2020-07-28] MEDS: methylPREDNISolone Sod Succinate 40 MG/1 ML INJ IV SCH ×4 (00:26→22:21)
[2020-07-28] MEDS: fentaNYL DRIP Premix 2,000 MCG/100 ML BAG IV SCH ×5 (02:03→19:49)
[2020-07-28 04:39] LABS: ABG Base Excess 13.5 mmol/L (-2.0-3.0); ABG HCO3 40.9 mmol/L (20.0-26.0); ABG Methemoglobin 0.6 % (0.0-1.5); ABG Oxygen Saturation 98.1 % (95.0-99.0); ABG PCO2 81.7 mm Hg; ABG PH 7.317 pH Units (7.350-7.450); ABG PO2 130.3 mm Hg (80.0-90.0)
[2020-07-28] MEDS: MIDAZOLAM 100 MG in SODIUM CHLORIDE 0.9% 80 ML IV SCH (06:30)
[2020-07-28] MEDS: ASPIRIN 81 MG TAB CHEW PO SCH (09:04)
[2020-07-28] MEDS: LANSOPRAZOLE 30 MG SOLUTAB FEEDTUBE SCH (09:04)
[2020-07-28] MEDS: HYDROXYCHLOROQUINE 200 MG TAB PO SCH (09:04)
[2020-07-28] MEDS: IPRATROPIUM/ALBUTEROL SULFATE 3 ML AMPUL.NEB IH SCH ×3 (09:30→19:55)
[2020-07-28] MEDS: ARFORMOTEROL 15 MCG/2 ML NEBU IH SCH ×2 (09:30→19:55)
[2020-07-28] MEDS: BUDESONIDE 0.5 MG/2 ML NEBU IH SCH ×2 (09:30→19:55)
[2020-07-28 10:00] LABS: Hematocrit 26.6 % (30.3-42.9); Hemoglobin 9.5 gm/dl (10.1-14.3); Mean Corpuscular HGB Conc 36 % (30-34); Mean Corpuscular Volume 92 fl (79-97); Platelet Count 123 K/mm3 (140-440); Red Blood Count 2.89 M/mm3 (3.65-5.03); Red Cell Distribution Width 14.5 % (13.2-15.2)
[2020-07-28 10:23] LABS: Blood Urea Nitrogen 15 mg/dL (7-17); Calcium 7.9 mg/dL (8.4-10.2); Hemolysis Index 44
[2020-07-28 10:24] LABS: BUN/Creatinine Ratio 50
--- NOTE | 2020-07-28 10:34 | Progress Note ---
Assessment and Plan Assessment and plan: --Acute asthma exacerbation on iv steroid Oxygen supplementation as needed Continue montelukast Monitor oxygen saturations closely -- COVID-19 Tested positive for COVID-19 in [place] iv steroid, s/p Remdesivir for 5 days s/p convalescent plasma transfusion Procalcitonin <0.05, ID on board follow ferritin, ldh, d-dimer levels -- Acute hypoxic respiratory failure Now intubated on 07/09/20 overnight From COVID-19 and asthma exacerbation Continue steroids Continue oxygen supplementation -- GERD (gastroesophageal reflux disease) cont Pantoprazole --SLE (systemic lupus erythematosus related syndrome) Continue home medications-hydroxychloroquine -- DVT prophylaxis Lovenox 30 mg twice daily -- Full code status brief History: 50-year-old female with a past medical history of asthma, hypertension, and lupus complains of generalized body weakness, fever and shortness of breath. Patient states the symptoms started right after she was discharged from [place] on 07/05. She has associated wheezing, fever, cough and she has been using her inhalers with no significant effect. She also has associated diarrhea. Of note, she was hospitalized here in [facility] on 06/28 for asthma exacerbation and had a negative Covid test during the admission. She was treated and discharged. She presented to [place] for further evaluation after discharge from here and over there, she was found to have positive COVID-19 test and she was placed on steroids and subsequently discharged on Eliquis prophylaxis for DVT. She states that she did not receive remdesivir during the admission. She was discharged from [place] on 07/05. She went home and felt worse. She said that she passed out about 2 times. Due to persistent symptoms, she called EMS who brought her to [facility] for further evaluation. Daily course: 07/07. Patient seen and examined at bedside this morning. Patient is wheezing and slightly short of breath. Change steroids to Solu-Medrol 60 every 6. Added formoterol and budesonide. ID evaluation pending. Started patient on remdesivir as she is short of breath. 07/07: Placed on BIPAP this AM. Will need pulm evaluation. Solumedrol 60mg q6. STAT blood gas ordered. She will be transferred to [facility]. 07/08: Patient took oxygen off and attempts to go to the bathroom and subsequently became hypoxemic with sats down into the low 80s. Patient became weak short of breath. After that time patient had persistent coughing and cannot maintain sats until nonrebreather was placed. Patient is transferred to the ICU unit and monitored for respiratory failure possibly requiring intubation. 07/09: ID recommended for convalescent plasma, ordered. Patient intubated overnight. Continue to monitor clinically, scheduled lab, follow inflammatory markers 07/10: Wait for convalescent plasma transfusion, wean off from ventilator as tolerated 07/11: Called patient's daughter and updated. Continue to wean off vent as tolerated, continue tube feeding, monitor vital sign CBC BMP daily. 07/12: remains intubated and sedated. follow inflammatory markers - wean off vent as tolerated 07/13: wean off vent as tolerated, cxr in the am. reviewed vitals 07/14: remains intubated, has not received convalescent plasma yet. Reviewed vitals, tolerating tube feeding. Wean off vent per critical care as tolerated. 07/15: cont to provide supportive care, wean off vent as tolerated - difficult to wean off. 07/16: CXR findings improving, cont to wean off vent 07/17: Follow inflammatory markers, monitor off antibiotics. Wean off vent per pulmonary as tolerated 07/18: Wean off vent per pulmonary as tolerated,Follow inflammatory markers, monitor off antibiotics. 07/19: Wean off vent per pulmonary as tolerated,Follow inflammatory markers, monitor off antibiotics. SBT trial 07/20: Wean off vent as tolerated, continue supportive care, follow inflammatory markers 07/21: continue supportive care, follow inflammatory markers, wean off vent as tolerated 07/22: Continue to wean off from ventilator as tolerated per pulmonary recommendation, follow inflammatory markers. Repeat CBC BMP in the morning. We will repeat Covid test tomorrow to see if patient cleared the infection. 07/23. Continue to wean off from ventilator as tolerated per pulmonary recommen dation, follow inflammatory markers. Currently AC mode, rate 16, tidal volume 450 with FiO2 75%vand PEEP 14 07/24/2020. Continue ventilatory support with AC mode, rate 16, tidal volume 450, FiO2 100% and PEEP of 16. Continue Brovana and Pulmicort. Continue IV steroids 40 mg IV every 8 hours. Anticoagulation with Lovenox 30 mg twice daily. Patient currently sedated with Versed and fentanyl. 07/25/2020. Continue ventilatory support with AC mode, rate 16, tidal volume 450, FiO2 75% and PEEP of 16. Continue Brovana and Pulmicort. Continue IV steroids 40 mg IV every 8 hours. Anticoagulation with Lovenox 30 mg twice daily. Patient currently sedated with Versed and fentanyl. Continue to wean per pulmonary recommendations. 07/26/2020. Continue ventilatory support with AC mode, rate 16, tidal volume 450, FiO2 85% and PEEP of 16. Continue Brovana and Pulmicort. Continue IV steroids 40 mg IV every 8 hours. Anticoagulation with Lovenox 30 mg twice daily. Patient currently sedated with Versed and fentanyl. Continue to wean per protocol. 07/27/2020. Continue ventilatory support with AC mode, rate 16, tidal volume 450, FiO2 100% and PEEP of 16. Patient with increased oxygen requirements the past couple of days. Continue Brovana and Pulmicort. Continue IV steroids 40 m g IV every 8 hours. Anticoagulation with Lovenox 30 mg twice daily. Patient currently sedated with Versed and fentanyl. Dose of Lasix given by pulmonary yesterday to achieve negative fluid balance. Follow-up serial chest x-ray 07/28/2020. Continue ventilatory support with AC mode, rate 16, tidal volume 450, FiO2 100% and PEEP of 16. Wean FiO2 per protocol. Continue Brovana and Pulmicort. Continue IV steroids 40 mg IV every 8 hours. Anticoagulation with Lovenox 30 mg twice daily. Patient currently sedated with Versed and fentanyl. The high probability of a clinically significant, sudden or life threatening deterioration of the [[employer], respiratory, [employer]] system(s) required my full and direct attention, intervention and personal management. The aggregate critical care time was [32] minutes. This time is in addition to time spent performing reported procedures but includes the following: [x] Data Review and interpretation [x] Patient assessment and monitoring of vital signs [x] Documentation [x] Medication orders and management History Interval history: No new issues overnight. Hospitalist Physical - Constitutional Vitals: Temp Pulse Resp BP Pulse Ox 97.9 F 85 17 93/51 97 07/28/20 08:00 07/28/20 10:00 07/28/20 10:00 07/28/20 10:00 07/28/20 10:00 General appearance: Present: no acute distress, well-nourished - EENT Eyes: Present: PERRL, EOM intact ENT: hearing intact, clear oral mucosa, dentition normal - Neck Neck: Present: supple, normal ROM - Respiratory Respiratory effort: normal Respiratory: bilateral: CTA - Cardiovascular Rhythm: regular Heart Sounds: Present: S1 & S2. Absent: gallop, rub - Extremities Extremities: no ischemia, No edema, Full ROM - Abdominal General gastrointestinal: soft, non-tender, non-distended, normal bowel sounds - Integumentary Integumentary: Present: clear, warm, dry - Neurologic Neurologic: CNII-XII intact, moves all extremities Results - Labs CBC & Chem 7: 07/28/20 09:20 07/28/20 09:20 Labs: Laboratory Last Values WBC 9.7 K/mm3 (4.5-11.0) 07/28/20 09:20 RBC 2.89 M/mm3 (3.65-5.03) L 07/28/20 09:20 Hgb 9.5 gm/dl (10.1-14.3) L 07/28/20 09:20 Hct 26.6 % (30.3-42.9) L 07/28/20 09:20 MCV 92 fl (79-97) 07/28/20 09:20 MCH 33 pg (28-32) H 07/28/20 09:20 MCHC 36 % (30-34) H 07/28/20 09:20 RDW 14.5 % (13.2-15.2) 07/28/20 09:20 Plt Count 123 K/mm3 (140-440) L 07/28/20 09:20 Lymph % (Auto) 4.2 % (13.4-35.0) L 07/26/20 14:23 [place] % (Auto) 4.8 % (0.0-7.3) 07/26/20 14:23 Eos % (Auto) 0.8 % (0.0-4.3) 07/26/20 14:23 Baso % (Auto) 0.4 % (0.0-1.8) 07/26/20 14:23 Lymph # (Auto) 0.5 K/mm3 (1.2-5.4) L 07/26/20 14:23 [place] # (Auto) 0.6 K/mm3 (0.0-0.8) 07/26/20 14:23 Eos # (Auto) 0.1 K/mm3 (0.0-0.4) 07/26/20 14:23 Baso # (Auto) 0.1 K/mm3 (0.0-0.1) 07/26/20 14:23 Add Manual Diff Complete 07/27/20 14:18 Total Counted 100 07/27/20 14:18 Seg Neutrophils % [employer] 07/28/20 09:20 Seg Neuts % (Manual) 90.0 % (40.0-70.0) H 07/27/20 14:18 Band Neutrophils % 0 % 07/27/20 14:18 Lymphocytes % (Manual) 7.0 % (13.4-35.0) L 07/27/20 14:18 Reactive Lymphs % (Man) 0 % 07/27/20 14:18 Monocytes % (Manual) 3.0 % (0.0-7.3) 07/27/20 14:18 Eosinophils % (Manual) 0 % (0.0-4.3) 07/27/20 14:18 Basophils % (Manual) 0 % (0.0-1.8) 07/27/20 14:18 Metamyelocytes % 0 % 07/27/20 14:18 Myelocytes % 0 % 07/27/20 14:18 Promyelocytes % 0 % 07/27/20 14:18 Blast Cells % 0 % 07/27/20 14:18 Nucleated RBC % Not Reportable 07/27/20 14:18 Seg Neutrophils # 10.8 K/mm3 (1.8-7.7) H 07/26/20 14:23 Seg Neutrophils # Man 11.0 K/mm3 (1.8-7.7) H 07/27/20 14:18 Band Neutrophils # 0.0 K/mm3 07/27/20 14:18 Lymphocytes # (Manual) 0.9 K/mm3 (1.2-5.4) L 07/27/20 14:18 Abs React Lymphs (Man) 0.0 K/mm3 07/27/20 14:18 Monocytes # (Manual) 0.4 K/mm3 (0.0-0.8) 07/27/20 14:18 Eosinophils # (Manual) 0.0 K/mm3 (0.0-0.4) 07/27/20 14:18 Basophils # (Manual) 0.0 K/mm3 (0.0-0.1) 07/27/20 14:18 Metamyelocytes # 0.0 K/mm3 07/27/20 14:18 Myelocytes # 0.0 K/mm3 07/27/20 14:18 Promyelocytes # 0.0 K/mm3 07/27/20 14:18 Blast Cells # 0.0 K/mm3 07/27/20 14:18 WBC Morphology Not Reportable 07/27/20 14:18 Hypersegmented Neuts Not Reportable 07/27/20 14:18 Hyposegmented Neuts Not Reportable 07/27/20 14:18 Hypogranular Neuts Not Reportable 07/27/20 14:18 Smudge Cells Not Reportable 07/27/20 14:18 Toxic Granulation Not Reportable 07/27/20 14:18 Toxic Vacuolation Not Reportable 07/27/20 14:18 Dohle Bodies Not Reportable 07/27/20 14:18 Pelger-Huet Anomaly Not Reportable 07/27/20 14:18 Savanna Rods Not Reportable 07/27/20 14:18 Platelet Estimate Consistent w auto 07/27/20 14:18 Clumped Platelets Not Reportable 07/27/20 14:18 Plt Clumps, EDTA Not Reportable 07/27/20 14:18 Large Platelets Not Reportable 07/27/20 14:18 Giant Platelets Not Reportable 07/27/20 14:18 Platelet Satelliting Not Reportable 07/27/20 14:18 Plt Morphology Comment Not Reportable 07/27/20 14:18 RBC Morphology Not Reportable 07/27/20 14:18 Dimorphic RBCs Not Reportable 07/27/20 14:18 Polychromasia Not Reportable 07/27/20 14:18 Hypochromasia Not Reportable 07/27/20 14:18 Poikilocytosis Not Reportable 07/27/20 14:18 Anisocytosis Not Reportable 07/27/20 14:18 Microcytosis Not Reportable 07/27/20 14:18 Macrocytosis Not Reportable 07/27/20 14:18 Spherocytes Not Reportable 07/27/20 14:18 Pappenheimer Bodies Not Reportable 07/27/20 14:18 Sickle Cells Not Reportable 07/27/20 14:18 Target Cells Not Reportable 07/27/20 14:18 Tear Drop Cells Rare 07/27/20 14:18 Ovalocytes Rare 07/27/20 14:18 Helmet Cells Not Reportable 07/27/20 14:18 [place] Bodies Not Reportable 07/27/20 14:18 Niland Rings Not Reportable 07/27/20 14:18 Kristan Cells Not Reportable 07/27/20 14:18 Bite Cells Not Reportable 07/27/20 14:18 Crenated Cell Not Reportable 07/27/20 14:18 Elliptocytes Not Reportable 07/27/20 14:18 Acanthocytes (Spur) Not Reportable 07/27/20 14:18 Rouleaux Not Reportable 07/27/20 14:18 Hemoglobin C Crystals Not Reportable 07/27/20 14:18 Schistocytes Not Reportable 07/27/20 14:18 Malaria parasites Not Reportable 07/27/20 14:18 Junaid Bodies Not Reportable 07/27/20 14:18 Hem Pathologist Commnt No 07/27/20 14:18 D-Dimer 826.36 ng/mlDDU (0-234) H 07/13/20 07:20 ABG pH 7.317 pH Units (7.350-7.450) L 07/28/20 04:15 POC ABG pCO2 46.1 mmHg (32.0-48.0) 07/22/20 03:26 ABG pCO2 81.7 mm Hg 07/28/20 04:15 POC ABG pO2 54.2 mmHg (83-108) L 07/22/20 03:26 ABG pO2 130.3 mm Hg (80.0-90.0) H 07/28/20 04:15 POC ABG HCO3 30.0 07/22/20 03:26 ABG HCO3 40.9 mmol/L (20.0-26.0) H 07/28/20 04:15 ABG O2 Saturation 98.1 % (95.0-99.0) 07/28/20 04:15 ABG O2 Content 8.2 (0.0-44) 07/28/20 04:15 POC ABG Base Excess 5.0 07/22/20 03:26 ABG Base Excess 13.5 mmol/L (-2.0-3.0) H 07/28/20 04:15 ABG Hemoglobin 5.8 gm/dl (12.0-16.0) L 07/28/20 04:15 ABG Oxyhemoglobin 93.6 (94-98) L 07/19/20 16:29 ABG Carboxyhemoglobin 1.7 % (0.0-5.0) 07/28/20 04:15 ABG Methemoglobin 0.6 % (0.0-1.5) 07/28/20 04:15 ABG Sodium 133.7 mmol/L (136.0-145.0) L 07/22/20 03:26 ABG Potassium 4.2 mmol/L (3.40-4.50) 07/22/20 03:26 ABG Chloride 100.0 mmol/L (98-107) 07/22/20 03:26 ABG Glucose 217 mg/dL (65-95) H 07/22/20 03:26 Oxyhemoglobin 95.8 % (95.0-99.0) 07/28/20 04:15 Carboxyhemoglobin 0.7 (0.5-1.5) 07/19/20 16:29 FiO2 95 % 07/28/20 04:15 Sodium 134 mmol/L (137-145) L 07/28/20 09:20 Potassium 4.3 mmol/L (3.6-5.0) 07/28/20 09:20 Chloride 95.6 mmol/L (98-107) L 07/28/20 09:20 Carbon Dioxide 39 mmol/L (22-30) H 07/28/20 09:20 Anion Gap 4 mmol/L 07/28/20 09:20 BUN 15 mg/dL (7-17) 07/28/20 09:20 Creatinine 0.3 mg/dL (0.6-1.2) L 07/28/20 09:20 Estimated GFR > 60 ml/min 07/28/20 09:20 BUN/Creatinine Ratio 50 % 07/28/20 09:20 Glucose 131 mg/dL (65-100) H 07/28/20 09:20 POC Glucose 130 mg/dL (70-105) H 07/28/20 05:34 Lactic Acid 1.90 mmol/L (0.7-2.0) 07/09/20 Unknown Calcium 7.9 mg/dL (8.4-10.2) L 07/28/20 09:20 Phosphorus 3.20 mg/dL (2.5-4.5) 07/08/20 16:13 Magnesium 2.20 mg/dL (1.7-2.3) 07/08/20 16:13 Ferritin 219.8 ng/mL (10.0-200.0) H 07/13/20 07:20 Total Bilirubin 0.20 mg/dL (0.1-1.2) 07/13/20 07:20 AST 14 units/L (5-40) 07/13/20 07:20 ALT 13 units/L (7-56) 07/13/20 07:20 Alkaline Phosphatase 53 units/L (35-129) 07/13/20 07:20 Lactate Dehydrogenase 531 units/L (91-180) H 07/15/20 09:00 C-Reactive Protein 1.80 mg/dL (0.00-1.30) H 07/13/20 07:20 Total Protein 5.8 g/dL (6.3-8.2) L 07/13/20 07:20 Albumin 3.2 g/dL (3.9-5) L 07/13/20 07:20 Albumin/Globulin Ratio 1.2 % 07/13/20 07:20 Triglycerides 130 mg/dL (2-149) 07/23/20 04:42 Procalcitonin < 0.05 ng/mL (<0.15) 07/10/20 12:10 Arterial Blood Glucose 217 mg/dL (65-95) H 07/22/20 03:26 Arterial Blood Ionized Calcium 4.5 mg/dL (4.6-5.3) L 07/22/20 03:26 Urine Color Yellow (Yellow) 07/11/20 09:30 Urine Turbidity Clear (Clear) 07/11/20 09:30 Urine pH 5.0 (5.0-7.0) 07/11/20 09:30 Ur Specific [place] 1.028 (1.003-1.030) 07/11/20 09:30 Urine Protein <15 mg/dl mg/dL (Negative) 07/11/20 09:30 Urine Glucose (UA) Neg mg/dL (Negative) 07/11/20 09:30 Urine Ketones Neg mg/dL (Negative) 07/11/20 09:30 Urine Blood Neg (Negative) 07/11/20 09:30 Urine Nitrite Neg (Negative) 07/11/20 09:30 Urine Bilirubin Neg (Negative) 07/11/20 09:30 Urine Urobilinogen 2.0 mg/dL (<2.0) 07/11/20 09:30 Ur Leukocyte Esterase Neg (Negative) 07/11/20 09:30 Urine WBC (Auto) 1.0 /HPF (0.0-6.0) 07/11/20 09:30 Urine RBC (Auto) 1.0 /HPF (0.0-6.0) 07/11/20 09:30 U Epithel Cells (Auto) 1.0 /HPF (0-13.0) 07/11/20 09:30 Urine Mucus Few /HPF 07/11/20 09:30 Coronavirus (PCR) Positive (Negative) A 07/23/20 Unknown SARS-CoV-2 IgG Ab Reactive (NonReactive) A 07/15/20 14:30 Blood Type O POSITIVE 07/09/20 15:30 Antibody Screen Negative 07/09/20 15:30 Microbiology: Microbiology 07/27/20 14:18 Peripheral/Venous Blood Culture - Preliminary Culture in Progress 07/27/20 14:18 Peripheral/Venous Blood Culture - Preliminary Culture in Progress - Diagnostic Impressions Diagnostic Impressions: Echocardiogram 07/19/20 13:13 Transthoracic Echocardiogram Indication: CHF BP: 106/58 Conclusions *The left ventricular systolic function is within normal limits. There are no wall motion abnormalities observed. *The estimated ejection fraction is 60-65%. *Normal left ventricular diastolic filling is observed. Findings Procedure Info: The study quality is fair. Left Ventricle: The left ventricular chamber size, wall thickness and systolic function are within normal limits. There are no wall motion abnormalities observed. Ejection fraction is normal. The estimated ejection fraction is 60-65%. Normal left ventricular diastolic filling is observed. Left Atrium: The left atrium is normal in size with no visual thrombus identified. Right Ventricle: The right ventricular chamber size and systolic function are within normal limits. Right Atrium: The right atrium appears normal. Aortic Valve: The aortic valve is trileaflet. The leaflets are thin with normal excursion. There is no aortic stenosis or regurgitation present. Mitral Valve: The mitral valve leaflets are mildly thickened. There is trace of mitral regurgitation. There is no evidence of mitral stenosis. Tricuspid Valve: The tricuspid valve leaflets are normal. There is trace tricuspid regurgitation. The right ventricular systolic pressure is calculated at 14 mmHg. There is no tricuspid stenosis. Pulmonic Valve: The pulmonic valve appears normal. There is mild pulmonic regurgitation. There is no pulmonic stenosis. Pericardium: The pericardium appears normal. Aorta: The aorta appears normal. Pulmonary Artery: The main pulmonary artery appears normal. Venous: The inferior vena cava appears normal in size. There is a greater than 50% respiratory change in the inferior vena cava dimension. Measurements Chambers 2D Name Value Normal Range IVSd (2D) 1.08 cm (0.6 - 1.1) LVPWd (2D) 0.91 cm (0.6 - 1.1) LVIDd (2D) 4.61 cm (3.7 - 5.6) LVIDs (2D) 3.12 cm (2 - 3.8) LV FS (2D) 32.38 % - EF Teichholz (2D) 60.72 % - Ao root diameter (2D) 3.01 cm (2 - 3.7) Volumes/Mass Name Value Normal Range LA ESV SP 4CH (A/L) 57.18 ml - LA ESV SP 2CH (A/L) 62.63 ml - LA ESV BP (A/L) 60.68 ml - LA ESV BP (A/L) index 28.22 ml/m2 - LA ESV SP 4CH (MOD) 51.17 ml - LA ESV SP 2CH (MOD) 57.8 ml - LA ESV BP (MOD) 54.73 ml - LA ESV BP (MOD) index 25.45 ml/m2 - LV EDV SP 4CH (MOD) 115.34 ml - LV ESV SP 4CH (MOD) 43.26 ml - EF SP 4CH (MOD) 62.5 % - LV EDV SP 2CH (MOD) 43.71 ml - LV ESV SP 2CH (MOD) 17.14 ml - EF SP 2CH (MOD) 60.79 % - LV EDV BP 73.15 ml - LV ESV BP 27.92 ml - BP EF (MOD) 61.83 % - Diastolic/Systolic Function Name Value Normal Range MV E-wave Vmax 0.88 m/sec - MV deceleration time 157.66 msec - MV A-wave Vmax 0.91 m/sec - MV E:A ratio 0.96 ratio - Aortic Valve Name Value Normal Range AV Vmax 1.54 m/sec - AV VTI 31.46 cm - AV peak gradient 9.51 mmHg - AV mean gradient 5.1 mmHg - LVOT diameter 1.95 cm - LVOT Vmax 1.21 m/sec - LVOT VTI 27.59 cm - LVOT peak gradient 5.83 mmHg - LVOT mean gradient 3.3 mmHg - SV LVOT 82.76 ml - SMITH (continuity Vmax) 2.35 cm2 - SMITH (continuity VTI) 2.63 cm2 - Ascending Ao 2.94 cm - Tricuspid Valve Name Value Normal Range TV E-wave Vmax 0.49 m/sec - TR Vmax 1.72 m/sec - TR peak gradient 11.86 mmHg - RAP 3 mmHg - RVSP 14 mmHg - IVC diameter 1.91 cm (1.2 - 2.3) Pulmonic Valve/Qp:Qs Name Value Normal Range PV Vmax 0.94 m/sec - PV peak gradient 3.54 mmHg - MS end-diastolic Vmax 0.54 m/sec - RVOT Vmax 0.68 m/sec - RVOT VTI 13.18 cm - RVOT peak gradient 1.82 mmHg - PV acceleration time 117.98 msec - Tejada/IV: Voiding Method Indwelling Catheter IV Catheter Type [Left Upper PICC Line arm] IV Catheter Type [Right INT / Saline Lock Forearm] IV Catheter Type [Left Wrist] INT / Saline Lock IV Catheter Type [Left Hand] Peripheral IV Active Medications - Current Medications Current Medications: Generic Name Dose Route Start Last Admin Trade Name Freq PRN Reason Stop Dose Admin Acetaminophen 650 mg 07/06/20 13:39 07/27/20 18:34 Tylenol PO 650 mg Q4H PRN Administration Pain MILD(1-3)/Fever >100.5/WILLETT Albuterol/Ipratropium 1 ampul 07/26/20 14:00 07/28/20 09:30 Duoneb *Not For Prn Use* IH 1 ampul TIDRT ROMMEL Administration Alprazolam 0.5 mg 07/07/20 12:28 07/27/20 03:15 Xanax PO 0.5 mg Q8H PRN Administration Anxiety Lipase/Protease/Amylase 1 each 07/08/20 14:50 Pancreaze 10,500 Unit FEEDTUBE PRN PRN For Clogged Feeding Tube Arformoterol Tartrate 15 mcg 07/07/20 09:15 07/28/20 09:30 Brovana Nebu IH 15 mcg Q12HRT ROMMEL Administration Ascorbic Acid 500 mg 07/08/20 22:00 07/28/20 09:05 Vitamin C PO 500 mg BID ROMMEL Administration Aspirin 81 mg 07/06/20 14:00 07/28/20 09:04 Baby Aspirin PO 81 mg QDAY ROMMEL Administration Budesonide 0.5 mg 07/07/20 09:15 07/28/20 09:30 Pulmicort IH 0.5 mg Q12HRT ROMMEL Administration Dextrose 50 ml 07/12/20 16:58 D50w (25gm) Syringe IV Q30MIN PRN Hypoglycemia Protocol Docusate Sodium 100 mg 07/16/20 22:00 07/28/20 09:04 Colace PO 100 mg BID ROMMEL Administration Enoxaparin Sodium 30 mg 07/06/20 15:00 07/28/20 09:05 Enoxaparin SUB-Q 30 mg BID [facility] Administration Protocol Fentanyl 50 mcg 07/08/20 13:16 07/11/20 09:41 Sublimaze IV 50 mcg Q10MIN PRN Administration ANALGESIA Gabapentin 600 mg 07/25/20 14:00 07/28/20 06:29 Gabapentin PO 600 mg Q8HR ROMMEL Administration Hydrophilic Ointment 1 applic 07/08/20 13:16 07/22/20 23:01 Vaseline Lip Therapy TP 1 applic Q2HR PRN Administration Dry Lips Hydroxychloroquine Sulfate 200 mg 07/07/20 10:00 07/28/20 09:04 Plaquenil PO 200 mg QDAY ROMMEL Administration Fentanyl Citrate 2,000 mcg in 100 mls @ 4.825 mls/hr 07/08/20 14:00 07/28/20 06:29 Fentanyl Drip Premix IV 4 mcg/kg/hr TITR ROMMEL 19.3 mls/hr Administration Protocol 1 MCG/KG/HR Midazolam HCl 100 mg/ Sodium 100 mls @ 2 mls/hr 07/08/20 15:00 07/28/20 06:30 Chloride IV 5 mg/hr TITR ROMMEL 5 mls/hr Administration Protocol 2 MG/HR Sodium Chloride 500 mls @ 10 mls/hr 07/15/20 15:00 Nacl 0.9% 500 Ml IV DIRECT ROMMEL Propofol 1,000 mg in 100 mls @ 3.3 mls/hr 07/19/20 13:00 07/28/20 06:31 Diprivan 10 Mg/Ml IV 30 mcg/kg/min TITR ROMMEL 19.8 mls/hr Administration Protocol 5 MCG/KG/MIN Norepinephrine 4 mg in 250 mls @ 7.5 mls/hr 07/27/20 05:00 Levophed Drip 4 Mg/Ns 250 Ml IV TITR ROMMEL Protocol 2 MCG/MIN Insulin Glargine 5 units 07/12/20 17:00 07/27/20 18:26 Lantus SUB-Q 5 units Q24H ROMMEL Administration Insulin Human Regular 0 unit 07/12/20 17:00 07/28/20 07:21 Humulin R SUB-Q Not Given Q6H ROMMEL Protocol Lansoprazole 30 mg 07/10/20 10:00 07/28/20 09:04 Prevacid Solutab FEEDTUBE 30 mg QDAY ROMMEL Administration Methylprednisolone Sodium Succinate 40 mg 07/22/20 14:00 07/28/20 06:00 Solu-Medrol IV 40 mg Q8H ROMMEL Administration Midazolam HCl 2 mg 07/08/20 14:33 07/18/20 23:46 Versed IV 2 mg Q10MIN PRN Administration Sedation Multi-Ingred Cream/Lotion/Oil/Oint 1 applic 07/08/20 13:16 Artificial Tears Ophth Oint OU Q4HR PRN Dry Eye(s) Ondansetron HCl 4 mg 07/06/20 13:39 07/08/20 10:44 Zofran IV 4 mg Q8H PRN Administration Nausea And Vomiting Polyethylene Glycol 17 gm 07/16/20 22:00 07/28/20 00:21 Miralax 3350 PO 17 gm QHS ROMMEL Administration Pseudoephedrine/Acetam/Chlorphenir 10 ml 07/07/20 01:17 07/08/20 08:30 Robitussin Ac PO 10 ml Q4H PRN Administration Cough Quetiapine Fumarate 200 mg 07/25/20 22:00 07/28/20 09:04 Seroquel PO 200 mg BID ROMMEL Administration Quetiapine Fumarate 100 mg 07/25/20 22:00 07/28/20 09:04 Seroquel PO 100 mg BID ROMMEL Administration Simple Syrup 15 ml 07/08/20 14:50 Simple Syrup FEEDTUBE PRN PRN Hypoglycemia Simple Syrup 30 ml 07/08/20 14:50 Simple Syrup FEEDTUBE PRN PRN Hypoglycemia Sodium Bicarbonate 325 mg 07/08/20 14:50 Sodium Bicarbonate FEEDTUBE PRN PRN For Clogged Feeding Tube Sodium Chloride 10 ml 07/06/20 14:00 07/28/20 09:05 Sodium Chloride Flush Syringe 10 Ml IV 10 ml BID ROMMEL Administration Sodium Chloride 10 ml 07/06/20 13:39 07/26/20 06:31 Sodium Chloride Flush Syringe 10 Ml IV 10 ml PRN PRN Administration LINE FLUSH Venlafaxine HCl 37.5 mg 07/07/20 10:00 07/27/20 11:45 Effexor PO 37.5 mg DAILY ROMMEL Administration Zinc Sulfate 220 mg 07/08/20 22:00 07/28/20 09:04 Zinc Sulfate PO 220 mg BID ROMMEL Administration Nutrition/Malnutrition Assess - Dietary Evaluation Nutrition/Malnutrition Findings: Nutrition Notes Start: 07/08/20 14:02 Freq: Status: Active Protocol: Document 07/27/20 08:58 (Rec: 07/27/20 09:54 [id number]) Nutrition Notes Need for Assessment generated from: MD Order Initial or Follow up Reassessment Current Diagnosis Hypertension,Heart Failure Other Pertinent Diagnosis Acute respiratory failure, COVID(+), GERD, Lupus Current Diet Vital AF 1.2 at 55 mL/hr (goal rate) Labs/Tests Reviewed Pertinent Medications Propofol Fentanyl Solu-medrol Zinc Sulfate Vitamin C Height 5 ft 5 in Weight 102.2 kg [place] Body Weight (kg) 56.81 BMI 37.5 Weight Status Obese Subjective/Other Information MD consult for TF. Pt receiving Vital AF 1.2 at 10ml /hr. Per RN, pt is proned and will be for 2 more days. Percent of energy/protein needs met: 17%/16% Burn Absent Trauma Absent GI Symptoms None Current % PO Negligible Minimum of two criteria No physical signs of malnutrition #1 Nutrition Diagnosis Inadequate oral intake Diagnosis Progress(for reassessment Continues documentation) Is patient on ventilator? Yes Is Patient Ambulatory and/or Out of Bed No REE-([place]-confined to bed) 1986.828 Kcal/Kg value to use for calculation 16 Approximate Energy Requirements Using 1635 kcal/Kg Calculation Used for Recommendations Kcal/kg Additional Notes Pro: greater than 114 g (>2 g/ kg IBW) Fluid: 1ml/kcal or per MD Nutrition Intervention Change Diet Order: Continue TF Nutrition Support: Vital AF at 55 ml/hr Flush 75 ml q4h 16 hr prone: Vital AF 1.2 at 10 ml for 16hr . Flush 50 ml q4h. For remaining 8 hours, Vital AF 1.2 at 135 ml/hr. Flush 125 ml q4h. Kcal 1,584 Protein (gm) 99 Fluid (mL) 1,070 Goal #1 Meet at least 80% of protein and energy needs via TF Anticipated Discharge Needs: Cannot determine at this time Follow-Up By: 08/01/20 Additional Comments Follow for TF tolerance
[2020-07-28] MEDS: VENLAFAXINE 37.5 MG TAB PO SCH (10:59)
[2020-07-28 14:37] LABS: Band Neutrophils # (Manual) 0.4 K/mm3; Basophils % (Manual) 0 % (0.0-1.8); Eosinophils % (Manual) 0 % (0.0-4.3); Platelet Estimate Consistent w Auto; RBC Morphology Normal; Total Cells Counted 100
--- NOTE | 2020-07-28 17:18 | Progress Note ---
Assessment and Plan 50-year-old female with CHF, asthma, hypertension, lupus was admitted to the hospital with complaints of fever, shortness of breath. Of note, she was seen last week due to an asthma exacerbation when her SARS-CoV-2 PCR and IgG were both negative. She was treated with steroids. She reportedly then went to [place] and tested positive for COVID-19 and was discharged from the hospital on 07/05/2020 readmitted here with: Acute hypoxemic respiratory failure, now on MVS Bilateral pneumonia, left greater than right lungs. COVID-19 infection-SEVERE/CRITICAL . History of congestive heart failure. History of lupus erythematosus. Leukocytosis. Tobacco use disorder. Acute asthma exacerbation. History of hypertension. Obesity Remains critically ill, on going intermittent desaturations. Proning per facility protocol for next 5 days Monitor renal function and hemodynamics closely. Conservative fluid management. [place] catheter while being proned Vasopressor support as indicated Daily ABG, PA/FIO2 ratio improving with proning Wean FiO2 for O2 sats>92% -Continue Seroquel at 300mg BID while monitoring for arrhythmias and QTc - continue airborne and contact isolation per facility protocol -Continue to monitor off antibiotics - continue systemic steroids for Asthma / severe COVID infection - continue Daily assessment for readiness to wean. Ventilatory demands are too h igh at this time - VAP bundle addressed, aspiration precautions, HOB >40 - continue lung protective strategies - accuchecks with glycemic control per SSI (While critically ill target blood glucose of 140-180 mg/dL; avoid hypoglycemia) - sedation for target RASS -1 to -2 - avoid nephrotoxins, renally dose all medications - prn analgesia per CPOT score - Maintenance of sleep-wake cycle, avoid delirium - G.I. & VTE prophylaxis( Famotidine and Enoxaparin) - PT/OT/ROM exercises - continue mobility protocols for pressure ulcer prevention as tolerated - continue other care per attending / other consultants - discharge planning ongoing concurrently COVID SPECIFIC INTERVENTIONS -On steroids -Prophylactic anticoagulation based on d-dimer -s/p Remdesivir -s/p Convalescent plasma, was IgG negative -Zinc & Vit C supplementation -Contact and airborne isolation per facility protocols CONDITION: CRITICAL PROGNOSIS: GUARDED CODE STATUS: FULL CODE The high probability of a clinically significant, sudden or life-threatening deterioration of the [respiratory, cardiovascular & neurologic] system(s) re quired my full and direct attention, intervention and personal management. The aggregate critical care time was [35] minutes without overlap. Time includes spent on; [x] Data Review and interpretation [x] Patient assessment and monitoring of vital signs [x] Documentation [x] Medication orders and management Subjective Date of service: 07/28/20 Principal diagnosis: Ac hypoxemic resp failure; PNA; COVID-19 infxn; SLE; Asthma exacerbation Interval history: Patient is seen today for: Acute hypoxemic respiratory failure; Bilateral pneumonia; COVID-19 infection; H/O CHF; SLE; Acute asthma exacerbation. HTN; Obesity Seen and examined at bedside; 24hour events reviewed; nursing and respiratory care staff consulted; no adverse overnight events reported to me; resting peacefully in bed; remains on MVS Midazolam, Fentanyl and Propofol. She is sedated, supine No dys-synchrony at this time. No N/V/F/C Objective Vital Signs - 12hr 07/28/20 07/28/20 07/28/20 05:31 06:00 06:31 Temperature Pulse Rate 82 86 81 Pulse Rate [ Bilateral Throughout] Pulse Rate [ From Monitor] Respiratory 11 L 10 L 12 Rate Respiratory Rate [Bilateral Throughout] Blood Pressure 110/60 106/56 106/56 O2 Sat by Pulse 97 96 94 Oximetry 07/28/20 07/28/20 07/28/20 07:01 07:30 08:00 Temperature 97.9 F Pulse Rate 81 83 83 Pulse Rate [ Bilateral Throughout] Pulse Rate [ 83 From Monitor] Respiratory 14 15 Rate Respiratory Rate [Bilateral Throughout] Blood Pressure 99/53 103/58 O2 Sat by Pulse 96 96 92 Oximetry 07/28/20 07/28/20 07/28/20 08:01 08:30 08:47 Temperature Pulse Rate 83 82 75 Pulse Rate [ Bilateral Throughout] Pulse Rate [ From Monitor] Respiratory 15 19 Rate Respiratory Rate [Bilateral Throughout] Blood Pressure 103/58 101/58 89/50 O2 Sat by Pulse 96 96 96 Oximetry 07/28/20 07/28/20 07/28/20 09:00 09:30 10:00 Temperature Pulse Rate 78 73 85 Pulse Rate [ 79 Bilateral Throughout] Pulse Rate [ From Monitor] Respiratory 17 16 17 Rate Respiratory 16 Rate [Bilateral Throughout] Blood Pressure 101/57 89/50 93/51 O2 Sat by Pulse 96 95 97 Oximetry 07/28/20 07/28/20 07/28/20 10:30 11:00 11:30 Temperature Pulse Rate 82 79 81 Pulse Rate [ Bilateral Throughout] Pulse Rate [ From Monitor] Respiratory 10 L 11 L 11 L Rate Respiratory Rate [Bilateral Throughout] Blood Pressure 99/49 110/56 99/60 O2 Sat by Pulse 96 96 96 Oximetry 07/28/20 07/28/20 07/28/20 12:00 12:30 12:45 Temperature 97.9 F Pulse Rate 77 76 76 Pulse Rate [ Bilateral Throughout] Pulse Rate [ 76 From Monitor] Respiratory 12 16 Rate Respiratory Rate [Bilateral Throughout] Blood Pressure 95/49 95/51 97/50 O2 Sat by Pulse 97 97 96 Oximetry 07/28/20 07/28/20 07/28/20 13:00 13:30 14:00 Temperature Pulse Rate 78 79 77 Pulse Rate [ Bilateral Throughout] Pulse Rate [ From Monitor] Respiratory 16 17 14 Rate Respiratory Rate [Bilateral Throughout] Blood Pressure 97/50 97/52 98/53 O2 Sat by Pulse 97 97 96 Oximetry 07/28/20 07/28/20 07/28/20 14:30 15:00 15:25 Temperature Pulse Rate 78 74 79 Pulse Rate [ Bilateral Throughout] Pulse Rate [ From Monitor] Respiratory 15 13 Rate Respiratory Rate [Bilateral Throughout] Blood Pressure 101/55 97/50 102/64 O2 Sat by Pulse 96 95 99 Oximetry 07/28/20 07/28/20 07/28/20 15:30 15:31 16:00 Temperature Pulse Rate 79 77 Pulse Rate [ 79 Bilateral Throughout] Pulse Rate [ 78 From Monitor] Respiratory 15 15 Rate Respiratory 16 Rate [Bilateral Throughout] Blood Pressure 102/64 93/48 O2 Sat by Pulse 99 98 Oximetry Constitutional: appears uncomfortable, other (middle aged obese female with mildly increased respiratory effort at rest on MVS) Eyes: non-icteric ENT: oropharynx moist, other (ETT 23cm YANET) Neck: supple, no lymphadenopathy, no JVD Effort: mildly labored Ascultation: Bilateral: diminished breath sounds, rhonchi (scant ), other (+ mild accesory muscle use) Percussion: Bilateral: not dull Cardiovascular: regular rate and rhythm, other (S1,S2) Gastrointestinal: normoactive bowel sounds, soft, non-tender, non-distended Integumentary: normal Extremities: no cyanosis, no edema, pulses normal, no ischemia or petechiae Neurologic: pupils equal and round, other (sedated) Psychiatric: anxious CBC and BMP: 07/29/20 07:54 07/29/20 07:54 ABG, PT/INR, D-dimer: ABG ABG pH 7.317 pH Units (7.350-7.450) L 07/28/20 04:15 POC ABG pCO2 46.1 mmHg (32.0-48.0) 07/22/20 03:26 ABG pCO2 81.7 mm Hg 07/28/20 04:15 POC ABG pO2 54.2 mmHg (83-108) L 07/22/20 03:26 ABG pO2 130.3 mm Hg (80.0-90.0) H 07/28/20 04:15 POC ABG HCO3 30.0 07/22/20 03:26 ABG O2 Saturation 98.1 % (95.0-99.0) 07/28/20 04:15 PT/INR, D-dimer D-Dimer 826.36 ng/mlDDU (0-234) H 07/13/20 07:20 Abnormal lab findings: Abnormal Labs 07/06/20 07/06/20 07/07/20 05:24 17:16 04:50 WBC 13.5 H 12.7 H RBC Hgb Hct MCH MCHC Plt Count Lymph % (Auto) Lymph # (Auto) Seg Neutrophils % Seg Neuts % (Manual) 86.0 H 87.0 H Lymphocytes % (Manual) 6.0 L 9.0 L Seg Neutrophils # Seg Neutrophils # Man 11.6 H 11.0 H Lymphocytes # (Manual) 0.8 L 1.1 L D-Dimer ABG pH POC ABG pCO2 POC ABG pO2 ABG pO2 ABG HCO3 ABG O2 Saturation ABG Base Excess ABG Hemoglobin ABG Oxyhemoglobin ABG Sodium ABG Potassium ABG Chloride ABG Glucose Oxyhemoglobin Sodium Chloride Carbon Dioxide BUN Creatinine Glucose POC Glucose Calcium Ferritin Lactate Dehydrogenase 242 H C-Reactive Protein 7.30 H Total Protein Albumin Arterial Blood Glucose Arterial Blood Ionized Calcium Coronavirus (PCR) SARS-CoV-2 IgG Ab 07/07/20 07/07/20 07/07/20 04:50 14:22 14:22 WBC RBC Hgb Hct MCH MCHC Plt Count Lymph % (Auto) Lymph # (Auto) Seg Neutrophils % Seg Neuts % (Manual) Lymphocytes % (Manual) Seg Neutrophils # Seg Neutrophils # Man Lymphocytes # (Manual) D-Dimer ABG pH POC ABG pCO2 POC ABG pO2 ABG pO2 ABG HCO3 ABG O2 Saturation ABG Base Excess ABG Hemoglobin ABG Oxyhemoglobin ABG Sodium ABG Potassium ABG Chloride ABG Glucose Oxyhemoglobin Sodium Chloride Carbon Dioxide BUN 18 H Creatinine Glucose 138 H POC Glucose Calcium Ferritin 228.2 H Lactate Dehydrogenase 277 H C-Reactive Protein Total Protein 5.9 L Albumin 3.4 L Arterial Blood Glucose Arterial Blood Ionized Calcium Coronavirus (PCR) SARS-CoV-2 IgG Ab 07/08/20 07/08/20 07/08/20 11:18 12:57 16:13 WBC RBC Hgb Hct MCH MCHC Plt Count Lymph % (Auto) Lymph # (Auto) Seg Neutrophils % Seg Neuts % (Manual) Lymphocytes % (Manual) Seg Neutrophils # Seg Neutrophils # Man Lymphocytes # (Manual) D-Dimer ABG pH POC ABG pCO2 POC ABG pO2 ABG pO2 39.3 L* ABG HCO3 ABG O2 Saturation 76.8 L ABG Base Excess ABG Hemoglobin ABG Oxyhemoglobin ABG Sodium ABG Potassium ABG Chloride ABG Glucose Oxyhemoglobin 75.3 L Sodium Chloride Carbon Dioxide 20 L D BUN Creatinine Glucose 135 H POC Glucose 106 H Calcium 8.0 L Ferritin Lactate Dehydrogenase C-Reactive Protein Total Protein Albumin Arterial Blood Glucose Arterial Blood Ionized Calcium Coronavirus (PCR) SARS-CoV-2 IgG Ab 07/08/20 07/08/20 07/09/20 17:04 18:45 04:00 WBC 15.6 H RBC Hgb Hct MCH MCHC Plt Count Lymph % (Auto) 4.7 L Lymph # (Auto) 0.7 L Seg Neutrophils % Seg Neuts % (Manual) Lymphocytes % (Manual) Seg Neutrophils # 14.2 H Seg Neutrophils # Man Lymphocytes # (Manual) D-Dimer ABG pH POC ABG pCO2 POC ABG pO2 ABG pO2 181.8 H ABG HCO3 ABG O2 Saturation 99.1 H ABG Base Excess ABG Hemoglobin 11.4 L ABG Oxyhemoglobin ABG Sodium ABG Potassium ABG Chloride ABG Glucose Oxyhemoglobin Sodium Chloride Carbon Dioxide BUN Creatinine Glucose POC Glucose 117 H Calcium Ferritin Lactate Dehydrogenase C-Reactive Protein Total Protein Albumin Arterial Blood Glucose Arterial Blood Ionized Calcium Coronavirus (PCR) SARS-CoV-2 IgG Ab 07/09/20 07/09/20 07/09/20 04:00 04:00 04:49 WBC RBC Hgb Hct MCH MCHC Plt Count Lymph % (Auto) Lymph # (Auto) Seg Neutrophils % Seg Neuts % (Manual) Lymphocytes % (Manual) Seg Neutrophils # Seg Neutrophils # Man Lymphocytes # (Manual) D-Dimer ABG pH POC ABG pCO2 POC ABG pO2 ABG pO2 ABG HCO3 26.2 H ABG O2 Saturation ABG Base Excess ABG Hemoglobin 11.2 L ABG Oxyhemoglobin ABG Sodium ABG Potassium ABG Chloride ABG Glucose Oxyhemoglobin 94.9 L Sodium Chloride Carbon Dioxide BUN Creatinine Glucose 158 H POC Glucose Calcium 8.2 L Ferritin 320.0 H Lactate Dehydrogenase 391 H C-Reactive Protein 9.50 H Total Protein 5.9 L Albumin 3.2 L Arterial Blood Glucose Arterial Blood Ionized Calcium Coronavirus (PCR) SARS-CoV-2 IgG Ab 07/09/20 07/09/20 07/09/20 11:56 17:49 23:39 WBC RBC Hgb Hct MCH MCHC Plt Count Lymph % (Auto) Lymph # (Auto) Seg Neutrophils % Seg Neuts % (Manual) Lymphocytes % (Manual) Seg Neutrophils # Seg Neutrophils # Man Lymphocytes # (Manual) D-Dimer ABG pH POC ABG pCO2 POC ABG pO2 ABG pO2 ABG HCO3 ABG O2 Saturation ABG Base Excess ABG Hemoglobin ABG Oxyhemoglobin ABG Sodium ABG Potassium ABG Chloride ABG Glucose Oxyhemoglobin Sodium Chloride Carbon Dioxide BUN Creatinine Glucose POC Glucose 156 H 119 H 145 H Calcium Ferritin Lactate Dehydrogenase C-Reactive Protein Total Protein Albumin Arterial Blood Glucose Arterial Blood Ionized Calcium Coronavirus (PCR) SARS-CoV-2 IgG Ab 07/10/20 07/10/20 07/10/20 03:32 05:26 11:22 WBC RBC Hgb Hct MCH MCHC Plt Count Lymph % (Auto) Lymph # (Auto) Seg Neutrophils % Seg Neuts % (Manual) Lymphocytes % (Manual) Seg Neutrophils # Seg Neutrophils # Man Lymphocytes # (Manual) D-Dimer ABG pH POC ABG pCO2 POC ABG pO2 ABG pO2 75.7 L ABG HCO3 27.5 H ABG O2 Saturation ABG Base Excess ABG Hemoglobin 9.3 L ABG Oxyhemoglobin ABG Sodium ABG Potassium ABG Chloride ABG Glucose Oxyhemoglobin 94.7 L Sodium Chloride Carbon Dioxide BUN Creatinine Glucose POC Glucose 156 H 148 H Calcium Ferritin Lactate Dehydrogenase C-Reactive Protein Total Protein Albumin Arterial Blood Glucose Arterial Blood Ionized Calcium Coronavirus (PCR) SARS-CoV-2 IgG Ab 07/10/20 07/10/20 07/10/20 12:10 12:10 18:20 WBC 14.1 H RBC 3.33 L Hgb 9.9 L Hct MCH MCHC Plt Count Lymph % (Auto) Lymph # (Auto) Seg Neutrophils % Seg Neuts % (Manual) 89.0 H Lymphocytes % (Manual) 8.0 L Seg Neutrophils # Seg Neutrophils # Man 12.5 H Lymphocytes # (Manual) 1.1 L D-Dimer ABG pH POC ABG pCO2 POC ABG pO2 ABG pO2 ABG HCO3 ABG O2 Saturation ABG Base Excess ABG Hemoglobin ABG Oxyhemoglobin ABG Sodium ABG Potassium ABG Chloride ABG Glucose Oxyhemoglobin Sodium Chloride Carbon Dioxide BUN 21 H Creatinine Glucose 154 H POC Glucose 181 H Calcium 8.0 L Ferritin Lactate Dehydrogenase C-Reactive Protein Total Protein 5.4 L Albumin 3.0 L Arterial Blood Glucose Arterial Blood Ionized Calcium Coronavirus (PCR) SARS-CoV-2 IgG Ab 07/10/20 07/11/20 07/11/20 23:51 04:05 05:43 WBC RBC Hgb Hct MCH MCHC Plt Count Lymph % (Auto) Lymph # (Auto) Seg Neutrophils % Seg Neuts % (Manual) Lymphocytes % (Manual) Seg Neutrophils # Seg Neutrophils # Man Lymphocytes # (Manual) D-Dimer ABG pH 7.348 L POC ABG pCO2 POC ABG pO2 ABG pO2 93.6 H ABG HCO3 28.5 H ABG O2 Saturation ABG Base Excess ABG Hemoglobin 10.1 L ABG Oxyhemoglobin ABG Sodium ABG Potassium ABG Chloride ABG Glucose Oxyhemoglobin Sodium Chloride Carbon Dioxide BUN Creatinine Glucose POC Glucose 116 H 132 H Calcium Ferritin Lactate Dehydrogenase C-Reactive Protein Total Protein Albumin Arterial Blood Glucose Arterial Blood Ionized Calcium Coronavirus (PCR) SARS-CoV-2 IgG Ab 07/11/20 07/11/20 07/11/20 09:11 09:11 09:11 WBC 15.8 H RBC 3.44 L Hgb Hct MCH MCHC Plt Count Lymph % (Auto) Lymph # (Auto) Seg Neutrophils % Seg Neuts % (Manual) 92.0 H Lymphocytes % (Manual) 4.0 L Seg Neutrophils # Seg Neutrophils # Man 14.5 H Lymphocytes # (Manual) 0.6 L D-Dimer 360.61 H ABG pH POC ABG pCO2 POC ABG pO2 ABG pO2 ABG HCO3 ABG O2 Saturation ABG Base Excess ABG Hemoglobin ABG Oxyhemoglobin ABG Sodium ABG Potassium ABG Chloride ABG Glucose Oxyhemoglobin Sodium Chloride 107.1 H Carbon Dioxide BUN 22 H Creatinine Glucose 149 H POC Glucose Calcium 7.8 L Ferritin Lactate Dehydrogenase 483 H C-Reactive Protein 2.30 H Total Protein 4.9 L Albumin 3.0 L Arterial Blood Glucose Arterial Blood Ionized Calcium Coronavirus (PCR) SARS-CoV-2 IgG Ab 07/11/20 07/11/20 07/11/20 09:11 12:16 17:55 WBC RBC Hgb Hct MCH MCHC Plt Count Lymph % (Auto) Lymph # (Auto) Seg Neutrophils % Seg Neuts % (Manual) Lymphocytes % (Manual) Seg Neutrophils # Seg Neutrophils # Man Lymphocytes # (Manual) D-Dimer ABG pH POC ABG pCO2 POC ABG pO2 ABG pO2 ABG HCO3 ABG O2 Saturation ABG Base Excess ABG Hemoglobin ABG Oxyhemoglobin ABG Sodium ABG Potassium ABG Chloride ABG Glucose Oxyhemoglobin Sodium Chloride Carbon Dioxide BUN Creatinine Glucose POC Glucose 157 H 166 H Calcium Ferritin 371.2 H Lactate Dehydrogenase C-Reactive Protein Total Protein Albumin Arterial Blood Glucose Arterial Blood Ionized Calcium Coronavirus (PCR) SARS-CoV-2 IgG Ab 07/12/20 07/12/20 07/12/20 00:32 04:00 04:00 WBC RBC 3.52 L Hgb Hct MCH MCHC Plt Count Lymph % (Auto) Lymph # (Auto) Seg Neutrophils % Seg Neuts % (Manual) 90.0 H Lymphocytes % (Manual) 4.0 L Seg Neutrophils # Seg Neutrophils # Man 9.5 H Lymphocytes # (Manual) 0.4 L D-Dimer ABG pH POC ABG pCO2 POC ABG pO2 ABG pO2 ABG HCO3 ABG O2 Saturation ABG Base Excess ABG Hemoglobin ABG Oxyhemoglobin ABG Sodium ABG Potassium ABG Chloride ABG Glucose Oxyhemoglobin Sodium Chloride Carbon Dioxide 31 H BUN 21 H Creatinine Glucose 175 H POC Glucose 178 H Calcium 8.0 L Ferritin Lactate Dehydrogenase C-Reactive Protein Total Protein 5.4 L Albumin 3.0 L Arterial Blood Glucose Arterial Blood Ionized Calcium Coronavirus (PCR) SARS-CoV-2 IgG Ab 07/12/20 07/12/20 07/12/20 04:01 05:47 12:09 WBC RBC Hgb Hct MCH MCHC Plt Count Lymph % (Auto) Lymph # (Auto) Seg Neutrophils % Seg Neuts % (Manual) Lymphocytes % (Manual) Seg Neutrophils # Seg Neutrophils # Man Lymphocytes # (Manual) D-Dimer ABG pH 7.456 H POC ABG pCO2 POC ABG pO2 ABG pO2 ABG HCO3 ABG O2 Saturation ABG Base Excess ABG Hemoglobin 10.6 L ABG Oxyhemoglobin ABG Sodium ABG Potassium ABG Chloride ABG Glucose 177 H Oxyhemoglobin Sodium Chloride Carbon Dioxide BUN Creatinine Glucose POC Glucose 185 H 227 H Calcium Ferritin Lactate Dehydrogenase C-Reactive Protein Total Protein Albumin Arterial Blood Glucose 177 H Arterial Blood Ionized Calcium 4.5 L Coronavirus (PCR) SARS-CoV-2 IgG Ab 07/12/20 07/12/20 07/13/20 17:34 23:57 05:06 WBC RBC Hgb Hct MCH MCHC Plt Count Lymph % (Auto) Lymph # (Auto) Seg Neutrophils % Seg Neuts % (Manual) Lymphocytes % (Manual) Seg Neutrophils # Seg Neutrophils # Man Lymphocytes # (Manual) D-Dimer ABG pH POC ABG pCO2 POC ABG pO2 ABG pO2 ABG HCO3 ABG O2 Saturation ABG Base Excess ABG Hemoglobin ABG Oxyhemoglobin ABG Sodium ABG Potassium ABG Chloride ABG Glucose Oxyhemoglobin Sodium Chloride Carbon Dioxide BUN Creatinine Glucose POC Glucose 202 H 163 H 166 H Calcium Ferritin Lactate Dehydrogenase C-Reactive Protein Total Protein Albumin Arterial Blood Glucose Arterial Blood Ionized Calcium Coronavirus (PCR) SARS-CoV-2 IgG Ab 07/13/20 07/13/20 07/13/20 07:20 07:20 07:20 WBC 20.5 H RBC Hgb Hct MCH MCHC Plt Count Lymph % (Auto) Lymph # (Auto) Seg Neutrophils % Seg Neuts % (Manual) 93.0 H Lymphocytes % (Manual) 3.0 L Seg Neutrophils # Seg Neutrophils # Man 19.1 H Lymphocytes # (Manual) 0.6 L D-Dimer 826.36 H ABG pH POC ABG pCO2 POC ABG pO2 ABG pO2 ABG HCO3 ABG O2 Saturation ABG Base Excess ABG Hemoglobin ABG Oxyhemoglobin ABG Sodium ABG Potassium ABG Chloride ABG Glucose Oxyhemoglobin Sodium Chloride Carbon Dioxide 31 H BUN 25 H Creatinine Glucose 163 H POC Glucose Calcium 8.1 L Ferritin Lactate Dehydrogenase 512 H C-Reactive Protein 1.80 H Total Protein 5.8 L Albumin 3.2 L Arterial Blood Glucose Arterial Blood Ionized Calcium Coronavirus (PCR) SARS-CoV-2 IgG Ab 07/13/20 07/13/20 07/13/20 07:20 11:37 17:20 WBC RBC Hgb Hct MCH MCHC Plt Count Lymph % (Auto) Lymph # (Auto) Seg Neutrophils % Seg Neuts % (Manual) Lymphocytes % (Manual) Seg Neutrophils # Seg Neutrophils # Man Lymphocytes # (Manual) D-Dimer ABG pH POC ABG pCO2 POC ABG pO2 ABG pO2 ABG HCO3 ABG O2 Saturation ABG Base Excess ABG Hemoglobin ABG Oxyhemoglobin ABG Sodium ABG Potassium ABG Chloride ABG Glucose Oxyhemoglobin Sodium Chloride Carbon Dioxide BUN Creatinine Glucose POC Glucose 232 H 210 H Calcium Ferritin 219.8 H Lactate Dehydrogenase C-Reactive Protein Total Protein Albumin Arterial Blood Glucose Arterial Blood Ionized Calcium Coronavirus (PCR) SARS-CoV-2 IgG Ab 07/13/20 07/13/20 07/14/20 23:57 Unknown 05:22 WBC RBC Hgb Hct MCH MCHC Plt Count Lymph % (Auto) Lymph # (Auto) Seg Neutrophils % Seg Neuts % (Manual) Lymphocytes % (Manual) Seg Neutrophils # Seg Neutrophils # Man Lymphocytes # (Manual) D-Dimer ABG pH 7.341 L POC ABG pCO2 POC ABG pO2 133.0 H ABG pO2 56.5 L ABG HCO3 29.7 H ABG O2 Saturation 89.3 L ABG Base Excess ABG Hemoglobin 11.0 L ABG Oxyhemoglobin ABG Sodium ABG Potassium ABG Chloride ABG Glucose 207 H Oxyhemoglobin 87.7 L Sodium Chloride Carbon Dioxide BUN Creatinine Glucose POC Glucose 190 H Calcium Ferritin Lactate Dehydrogenase C-Reactive Protein Total Protein Albumin Arterial Blood Glucose 207 H Arterial Blood Ionized Calcium 4.5 L Coronavirus (PCR) SARS-CoV-2 IgG Ab 07/14/20 07/14/20 07/14/20 05:54 11:16 17:50 WBC RBC Hgb Hct MCH MCHC Plt Count Lymph % (Auto) Lymph # (Auto) Seg Neutrophils % Seg Neuts % (Manual) Lymphocytes % (Manual) Seg Neutrophils # Seg Neutrophils # Man Lymphocytes # (Manual) D-Dimer ABG pH POC ABG pCO2 POC ABG pO2 ABG pO2 ABG HCO3 ABG O2 Saturation ABG Base Excess ABG Hemoglobin ABG Oxyhemoglobin ABG Sodium ABG Potassium ABG Chloride ABG Glucose Oxyhemoglobin Sodium Chloride Carbon Dioxide BUN Creatinine Glucose POC Glucose 206 H 196 H 205 H Calcium Ferritin Lactate Dehydrogenase C-Reactive Protein Total Protein Albumin Arterial Blood Glucose Arterial Blood Ionized Calcium Coronavirus (PCR) SARS-CoV-2 IgG Ab 07/14/20 07/15/20 07/15/20 23:28 03:16 06:12 WBC RBC Hgb Hct MCH MCHC Plt Count Lymph % (Auto) Lymph # (Auto) Seg Neutrophils % Seg Neuts % (Manual) Lymphocytes % (Manual) Seg Neutrophils # Seg Neutrophils # Man Lymphocytes # (Manual) D-Dimer ABG pH POC ABG pCO2 49.2 H POC ABG pO2 120.3 H ABG pO2 ABG HCO3 ABG O2 Saturation ABG Base Excess ABG Hemoglobin 9.5 L ABG Oxyhemoglobin ABG Sodium ABG Potassium ABG Chloride ABG Glucose 148 H Oxyhemoglobin Sodium Chloride Carbon Dioxide BUN Creatinine Glucose POC Glucose 160 H 178 H Calcium Ferritin Lactate Dehydrogenase C-Reactive Protein Total Protein Albumin Arterial Blood Glucose 148 H Arterial Blood Ionized Calcium Coronavirus (PCR) SARS-CoV-2 IgG Ab 07/15/20 07/15/20 07/15/20 09:00 12:32 14:30 WBC RBC Hgb Hct MCH MCHC Plt Count Lymph % (Auto) Lymph # (Auto) Seg Neutrophils % Seg Neuts % (Manual) Lymphocytes % (Manual) Seg Neutrophils # Seg Neutrophils # Man Lymphocytes # (Manual) D-Dimer ABG pH POC ABG pCO2 POC ABG pO2 ABG pO2 ABG HCO3 ABG O2 Saturation ABG Base Excess ABG Hemoglobin ABG Oxyhemoglobin ABG Sodium ABG Potassium ABG Chloride ABG Glucose Oxyhemoglobin Sodium Chloride Carbon Dioxide BUN Creatinine Glucose POC Glucose 173 H Calcium Ferritin Lactate Dehydrogenase 531 H C-Reactive Protein Total Protein Albumin Arterial Blood Glucose Arterial Blood Ionized Calcium Coronavirus (PCR) SARS-CoV-2 IgG Ab Reactive A 07/15/20 07/15/20 07/16/20 18:24 23:35 04:03 WBC RBC Hgb Hct MCH MCHC Plt Count Lymph % (Auto) Lymph # (Auto) Seg Neutrophils % Seg Neuts % (Manual) Lymphocytes % (Manual) Seg Neutrophils # Seg Neutrophils # Man Lymphocytes # (Manual) D-Dimer ABG pH POC ABG pCO2 POC ABG pO2 ABG pO2 72.7 L ABG HCO3 35.5 H ABG O2 Saturation ABG Base Excess 9.4 H ABG Hemoglobin 10.6 L ABG Oxyhemoglobin ABG Sodium ABG Potassium ABG Chloride ABG Glucose Oxyhemoglobin 93.6 L Sodium Chloride Carbon Dioxide BUN Creatinine Glucose POC Glucose 173 H 181 H Calcium Ferritin Lactate Dehydrogenase C-Reactive Protein Total Protein Albumin Arterial Blood Glucose Arterial Blood Ionized Calcium Coronavirus (PCR) SARS-CoV-2 IgG Ab 07/16/20 07/16/20 07/16/20 05:35 09:00 09:00 WBC 16.5 H RBC 3.59 L Hgb Hct MCH MCHC Plt Count Lymph % (Auto) Lymph # (Auto) Seg Neutrophils % Seg Neuts % (Manual) 96.0 H Lymphocytes % (Manual) 3.0 L Seg Neutrophils # Seg Neutrophils # Man 15.8 H Lymphocytes # (Manual) 0.5 L D-Dimer ABG pH POC ABG pCO2 POC ABG pO2 ABG pO2 ABG HCO3 ABG O2 Saturation ABG Base Excess ABG Hemoglobin ABG Oxyhemoglobin ABG Sodium ABG Potassium ABG Chloride ABG Glucose Oxyhemoglobin Sodium Chloride Carbon Dioxide 39 H D BUN 25 H Creatinine 0.4 L Glucose 167 H POC Glucose 129 H Calcium 8.3 L Ferritin Lactate Dehydrogenase C-Reactive Protein Total Protein Albumin Arterial Blood Glucose Arterial Blood Ionized Calcium Coronavirus (PCR) SARS-CoV-2 IgG Ab 07/16/20 07/16/20 07/17/20 12:32 18:28 00:09 WBC RBC Hgb Hct MCH MCHC Plt Count Lymph % (Auto) Lymph # (Auto) Seg Neutrophils % Seg Neuts % (Manual) Lymphocytes % (Manual) Seg Neutrophils # Seg Neutrophils # Man Lymphocytes # (Manual) D-Dimer ABG pH POC ABG pCO2 POC ABG pO2 ABG pO2 ABG HCO3 ABG O2 Saturation ABG Base Excess ABG Hemoglobin ABG Oxyhemoglobin ABG Sodium ABG Potassium ABG Chloride ABG Glucose Oxyhemoglobin Sodium Chloride Carbon Dioxide BUN Creatinine Glucose POC Glucose 187 H 174 H 184 H Calcium Ferritin Lactate Dehydrogenase C-Reactive Protein Total Protein Albumin Arterial Blood Glucose Arterial Blood Ionized Calcium Coronavirus (PCR) SARS-CoV-2 IgG Ab 07/17/20 07/17/20 07/17/20 04:30 05:47 13:03 WBC RBC Hgb Hct MCH MCHC Plt Count Lymph % (Auto) Lymph # (Auto) Seg Neutrophils % Seg Neuts % (Manual) Lymphocytes % (Manual) Seg Neutrophils # Seg Neutrophils # Man Lymphocytes # (Manual) D-Dimer ABG pH POC ABG pCO2 POC ABG pO2 ABG pO2 ABG HCO3 38.1 H ABG O2 Saturation ABG Base Excess 11.3 H ABG Hemoglobin 10.5 L ABG Oxyhemoglobin ABG Sodium ABG Potassium ABG Chloride ABG Glucose Oxyhemoglobin Sodium Chloride Carbon Dioxide BUN Creatinine Glucose POC Glucose 135 H 210 H Calcium Ferritin Lactate Dehydrogenase C-Reactive Protein Total Protein Albumin Arterial Blood Glucose Arterial Blood Ionized Calcium Coronavirus (PCR) SARS-CoV-2 IgG Ab 07/17/20 07/17/20 07/18/20 16:50 23:39 04:01 WBC RBC Hgb Hct MCH MCHC Plt Count Lymph % (Auto) Lymph # (Auto) Seg Neutrophils % Seg Neuts % (Manual) Lymphocytes % (Manual) Seg Neutrophils # Seg Neutrophils # Man Lymphocytes # (Manual) D-Dimer ABG pH POC ABG pCO2 56.8 H POC ABG pO2 61.9 L ABG pO2 ABG HCO3 ABG O2 Saturation ABG Base Excess ABG Hemoglobin 11.7 L ABG Oxyhemoglobin ABG Sodium 134.2 L ABG Potassium 4.7 H ABG Chloride 97.0 L ABG Glucose 173 H Oxyhemoglobin Sodium Chloride Carbon Dioxide BUN Creatinine Glucose POC Glucose 193 H 163 H Calcium Ferritin Lactate Dehydrogenase C-Reactive Protein Total Protein Albumin Arterial Blood Glucose 173 H Arterial Blood Ionized Calcium Coronavirus (PCR) SARS-CoV-2 IgG Ab 07/18/20 07/18/20 07/18/20 05:41 12:03 17:26 WBC RBC Hgb Hct MCH MCHC Plt Count Lymph % (Auto) Lymph # (Auto) Seg Neutrophils % Seg Neuts % (Manual) Lymphocytes % (Manual) Seg Neutrophils # Seg Neutrophils # Man Lymphocytes # (Manual) D-Dimer ABG pH POC ABG pCO2 POC ABG pO2 ABG pO2 ABG HCO3 ABG O2 Saturation ABG Base Excess ABG Hemoglobin ABG Oxyhemoglobin ABG Sodium ABG Potassium ABG Chloride ABG Glucose Oxyhemoglobin Sodium Chloride Carbon Dioxide BUN Creatinine Glucose POC Glucose 153 H 177 H 160 H Calcium Ferritin Lactate Dehydrogenase C-Reactive Protein Total Protein Albumin Arterial Blood Glucose Arterial Blood Ionized Calcium Coronavirus (PCR) SARS-CoV-2 IgG Ab 07/18/20 07/19/20 07/19/20 23:58 04:15 05:05 WBC RBC Hgb Hct MCH MCHC Plt Count Lymph % (Auto) Lymph # (Auto) Seg Neutrophils % Seg Neuts % (Manual) Lymphocytes % (Manual) Seg Neutrophils # Seg Neutrophils # Man Lymphocytes # (Manual) D-Dimer ABG pH 7.465 H POC ABG pCO2 49.1 H POC ABG pO2 49.4 L ABG pO2 ABG HCO3 ABG O2 Saturation ABG Base Excess ABG Hemoglobin 11.6 L ABG Oxyhemoglobin ABG Sodium 132.3 L ABG Potassium ABG Chloride 97.0 L ABG Glucose 148 H Oxyhemoglobin Sodium Chloride Carbon Dioxide BUN Creatinine Glucose POC Glucose 144 H 117 H Calcium Ferritin Lactate Dehydrogenase C-Reactive Protein Total Protein Albumin Arterial Blood Glucose 148 H Arterial Blood Ionized Calcium Coronavirus (PCR) SARS-CoV-2 IgG Ab 07/19/20 07/19/20 07/19/20 08:30 08:30 13:21 WBC 17.2 H RBC 3.59 L Hgb Hct MCH MCHC Plt Count Lymph % (Auto) Lymph # (Auto) Seg Neutrophils % Seg Neuts % (Manual) Lymphocytes % (Manual) Seg Neutrophils # Seg Neutrophils # Man Lymphocytes # (Manual) D-Dimer ABG pH POC ABG pCO2 POC ABG pO2 ABG pO2 ABG HCO3 ABG O2 Saturation ABG Base Excess ABG Hemoglobin ABG Oxyhemoglobin ABG Sodium ABG Potassium ABG Chloride ABG Glucose Oxyhemoglobin Sodium Chloride 95.7 L Carbon Dioxide 37 H BUN 20 H Creatinine 0.4 L Glucose 125 H POC Glucose 137 H Calcium 8.1 L Ferritin Lactate Dehydrogenase C-Reactive Protein Total Protein Albumin Arterial Blood Glucose Arterial Blood Ionized Calcium Coronavirus (PCR) SARS-CoV-2 IgG Ab 07/19/20 07/19/20 07/20/20 16:29 17:28 00:25 WBC RBC Hgb Hct MCH MCHC Plt Count Lymph % (Auto) Lymph # (Auto) Seg Neutrophils % Seg Neuts % (Manual) Lymphocytes % (Manual) Seg Neutrophils # Seg Neutrophils # Man Lymphocytes # (Manual) D-Dimer ABG pH POC ABG pCO2 53.4 H POC ABG pO2 71.0 L ABG pO2 ABG HCO3 ABG O2 Saturation ABG Base Excess ABG Hemoglobin 11.2 L ABG Oxyhemoglobin 93.6 L ABG Sodium 130.9 L ABG Potassium ABG Chloride 95.0 L ABG Glucose 188 H Oxyhemoglobin Sodium Chloride Carbon Dioxide BUN Creatinine Glucose POC Glucose 174 H 188 H Calcium Ferritin Lactate Dehydrogenase C-Reactive Protein Total Protein Albumin Arterial Blood Glucose 188 H Arterial Blood Ionized Calcium 4.4 L Coronavirus (PCR) SARS-CoV-2 IgG Ab 07/20/20 07/20/20 07/20/20 04:14 05:23 12:12 WBC RBC Hgb Hct MCH MCHC Plt Count Lymph % (Auto) Lymph # (Auto) Seg Neutrophils % Seg Neuts % (Manual) Lymphocytes % (Manual) Seg Neutrophils # Seg Neutrophils # Man Lymphocytes # (Manual) D-Dimer ABG pH POC ABG pCO2 52.7 H POC ABG pO2 59.5 L ABG pO2 ABG HCO3 ABG O2 Saturation ABG Base Excess ABG Hemoglobin 10.6 L ABG Oxyhemoglobin ABG Sodium 134.4 L ABG Potassium ABG Chloride ABG Glucose 176 H Oxyhemoglobin Sodium Chloride Carbon Dioxide BUN Creatinine Glucose POC Glucose 212 H 190 H Calcium Ferritin Lactate Dehydrogenase C-Reactive Protein Total Protein Albumin Arterial Blood Glucose 176 H Arterial Blood Ionized Calcium 4.5 L Coronavirus (PCR) SARS-CoV-2 IgG Ab 07/20/20 07/21/20 07/21/20 16:59 00:01 04:30 WBC RBC Hgb Hct MCH MCHC Plt Count Lymph % (Auto) Lymph # (Auto) Seg Neutrophils % Seg Neuts % (Manual) Lymphocytes % (Manual) Seg Neutrophils # Seg Neutrophils # Man Lymphocytes # (Manual) D-Dimer ABG pH 7.468 H POC ABG pCO2 POC ABG pO2 63.3 L ABG pO2 ABG HCO3 ABG O2 Saturation ABG Base Excess ABG Hemoglobin 11 L ABG Oxyhemoglobin ABG Sodium 135.0 L ABG Potassium ABG Chloride ABG Glucose 204 H Oxyhemoglobin Sodium Chloride Carbon Dioxide BUN Creatinine Glucose POC Glucose 201 H 177 H Calcium Ferritin Lactate Dehydrogenase C-Reactive Protein Total Protein Albumin Arterial Blood Glucose 204 H Arterial Blood Ionized Calcium 4.5 L Coronavirus (PCR) SARS-CoV-2 IgG Ab 07/21/20 07/21/20 07/21/20 05:26 11:50 17:16 WBC RBC Hgb Hct MCH MCHC Plt Count Lymph % (Auto) Lymph # (Auto) Seg Neutrophils % Seg Neuts % (Manual) Lymphocytes % (Manual) Seg Neutrophils # Seg Neutrophils # Man Lymphocytes # (Manual) D-Dimer ABG pH POC ABG pCO2 POC ABG pO2 ABG pO2 ABG HCO3 ABG O2 Saturation ABG Base Excess ABG Hemoglobin ABG Oxyhemoglobin ABG Sodium ABG Potassium ABG Chloride ABG Glucose Oxyhemoglobin Sodium Chloride Carbon Dioxide BUN Creatinine Glucose POC Glucose 175 H 157 H 148 H Calcium Ferritin Lactate Dehydrogenase C-Reactive Protein Total Protein Albumin Arterial Blood Glucose Arterial Blood Ionized Calcium Coronavirus (PCR) SARS-CoV-2 IgG Ab 07/22/20 07/22/20 07/22/20 00:01 03:26 05:16 WBC RBC Hgb Hct MCH MCHC Plt Count Lymph % (Auto) Lymph # (Auto) Seg Neutrophils % Seg Neuts % (Manual) Lymphocytes % (Manual) Seg Neutrophils # Seg Neutrophils # Man Lymphocytes # (Manual) D-Dimer ABG pH POC ABG pCO2 POC ABG pO2 54.2 L ABG pO2 ABG HCO3 ABG O2 Saturation ABG Base Excess ABG Hemoglobin 10.9 L ABG Oxyhemoglobin ABG Sodium 133.7 L ABG Potassium ABG Chloride ABG Glucose 217 H Oxyhemoglobin Sodium Chloride Carbon Dioxide BUN Creatinine Glucose POC Glucose 172 H 182 H Calcium Ferritin Lactate Dehydrogenase C-Reactive Protein Total Protein Albumin Arterial Blood Glucose 217 H Arterial Blood Ionized Calcium 4.5 L Coronavirus (PCR) SARS-CoV-2 IgG Ab 07/22/20 07/22/20 07/23/20 11:43 17:08 04:00 WBC 11.6 H RBC 3.54 L Hgb Hct MCH MCHC Plt Count Lymph % (Auto) Lymph # (Auto) Seg Neutrophils % Seg Neuts % (Manual) 94.0 H Lymphocytes % (Manual) 5.0 L Seg Neutrophils # Seg Neutrophils # Man 10.9 H Lymphocytes # (Manual) 0.6 L D-Dimer ABG pH POC ABG pCO2 POC ABG pO2 ABG pO2 ABG HCO3 ABG O2 Saturation ABG Base Excess ABG Hemoglobin ABG Oxyhemoglobin ABG Sodium ABG Potassium ABG Chloride ABG Glucose Oxyhemoglobin Sodium Chloride Carbon Dioxide BUN Creatinine Glucose POC Glucose 159 H 163 H Calcium Ferritin Lactate Dehydrogenase C-Reactive Protein Total Protein Albumin Arterial Blood Glucose Arterial Blood Ionized Calcium Coronavirus (PCR) SARS-CoV-2 IgG Ab 07/23/20 07/23/20 07/23/20 04:00 04:53 04:54 WBC RBC Hgb Hct MCH MCHC Plt Count Lymph % (Auto) Lymph # (Auto) Seg Neutrophils % Seg Neuts % (Manual) Lymphocytes % (Manual) Seg Neutrophils # Seg Neutrophils # Man Lymphocytes # (Manual) D-Dimer ABG pH 7.453 H POC ABG pCO2 POC ABG pO2 ABG pO2 ABG HCO3 32.4 H ABG O2 Saturation ABG Base Excess 7.5 H ABG Hemoglobin 10.7 L ABG Oxyhemoglobin ABG Sodium ABG Potassium ABG Chloride ABG Glucose Oxyhemoglobin Sodium Chloride Carbon Dioxide 35 H BUN Creatinine 0.4 L Glucose 112 H POC Glucose 169 H Calcium 8.2 L Ferritin Lactate Dehydrogenase C-Reactive Protein Total Protein Albumin Arterial Blood Glucose Arterial Blood Ionized Calcium Coronavirus (PCR) SARS-CoV-2 IgG Ab 07/23/20 07/23/20 07/23/20 11:50 23:19 Unknown WBC RBC Hgb Hct MCH MCHC Plt Count Lymph % (Auto) Lymph # (Auto) Seg Neutrophils % Seg Neuts % (Manual) Lymphocytes % (Manual) Seg Neutrophils # Seg Neutrophils # Man Lymphocytes # (Manual) D-Dimer ABG pH POC ABG pCO2 POC ABG pO2 ABG pO2 ABG HCO3 ABG O2 Saturation ABG Base Excess ABG Hemoglobin ABG Oxyhemoglobin ABG Sodium ABG Potassium ABG Chloride ABG Glucose Oxyhemoglobin Sodium Chloride Carbon Dioxide BUN Creatinine Glucose POC Glucose 118 H 168 H Calcium Ferritin Lactate Dehydrogenase C-Reactive Protein Total Protein Albumin Arterial Blood Glucose Arterial Blood Ionized Calcium Coronavirus (PCR) Positive A SARS-CoV-2 IgG Ab 07/24/20 07/24/20 07/24/20 04:11 05:37 11:42 WBC RBC Hgb Hct MCH MCHC Plt Count Lymph % (Auto) Lymph # (Auto) Seg Neutrophils % Seg Neuts % (Manual) Lymphocytes % (Manual) Seg Neutrophils # Seg Neutrophils # Man Lymphocytes # (Manual) D-Dimer ABG pH POC ABG pCO2 POC ABG pO2 ABG pO2 54.4 L ABG HCO3 34.3 H ABG O2 Saturation 89.0 L ABG Base Excess 8.5 H ABG Hemoglobin 11.0 L ABG Oxyhemoglobin ABG Sodium ABG Potassium ABG Chloride ABG Glucose Oxyhemoglobin 87.0 L Sodium Chloride Carbon Dioxide BUN Creatinine Glucose POC Glucose 115 H 166 H Calcium Ferritin Lactate Dehydrogenase C-Reactive Protein Total Protein Albumin Arterial Blood Glucose Arterial Blood Ionized Calcium Coronavirus (PCR) SARS-CoV-2 IgG Ab 07/24/20 07/24/20 07/25/20 17:39 23:38 03:53 WBC RBC Hgb Hct MCH MCHC Plt Count Lymph % (Auto) Lymph # (Auto) Seg Neutrophils % Seg Neuts % (Manual) Lymphocytes % (Manual) Seg Neutrophils # Seg Neutrophils # Man Lymphocytes # (Manual) D-Dimer ABG pH POC ABG pCO2 POC ABG pO2 ABG pO2 175.9 H ABG HCO3 34.0 H ABG O2 Saturation 99.1 H ABG Base Excess 8.2 H ABG Hemoglobin 10.6 L ABG Oxyhemoglobin ABG Sodium ABG Potassium ABG Chloride ABG Glucose Oxyhemoglobin Sodium Chloride Carbon Dioxide BUN Creatinine Glucose POC Glucose 150 H 139 H Calcium Ferritin Lactate Dehydrogenase C-Reactive Protein Total Protein Albumin Arterial Blood Glucose Arterial Blood Ionized Calcium Coronavirus (PCR) SARS-CoV-2 IgG Ab 07/25/20 07/25/20 07/25/20 05:47 12:09 23:46 WBC RBC Hgb Hct MCH MCHC Plt Count Lymph % (Auto) Lymph # (Auto) Seg Neutrophils % Seg Neuts % (Manual) Lymphocytes % (Manual) Seg Neutrophils # Seg Neutrophils # Man Lymphocytes # (Manual) D-Dimer ABG pH POC ABG pCO2 POC ABG pO2 ABG pO2 ABG HCO3 ABG O2 Saturation ABG Base Excess ABG Hemoglobin ABG Oxyhemoglobin ABG Sodium ABG Potassium ABG Chloride ABG Glucose Oxyhemoglobin Sodium Chloride Carbon Dioxide BUN Creatinine Glucose POC Glucose 144 H 152 H 116 H Calcium Ferritin Lactate Dehydrogenase C-Reactive Protein Total Protein Albumin Arterial Blood Glucose Arterial Blood Ionized Calcium Coronavirus (PCR) SARS-CoV-2 IgG Ab 07/26/20 07/26/20 07/26/20 03:48 05:36 11:28 WBC RBC Hgb Hct MCH MCHC Plt Count Lymph % (Auto) Lymph # (Auto) Seg Neutrophils % Seg Neuts % (Manual) Lymphocytes % (Manual) Seg Neutrophils # Seg Neutrophils # Man Lymphocytes # (Manual) D-Dimer ABG pH POC ABG pCO2 POC ABG pO2 ABG pO2 73.4 L ABG HCO3 35.0 H ABG O2 Saturation ABG Base Excess 8.3 H ABG Hemoglobin 9.8 L ABG Oxyhemoglobin ABG Sodium ABG Potassium ABG Chloride ABG Glucose Oxyhemoglobin 93.7 L Sodium Chloride Carbon Dioxide BUN Creatinine Glucose POC Glucose 136 H 145 H Calcium Ferritin Lactate Dehydrogenase C-Reactive Protein Total Protein Albumin Arterial Blood Glucose Arterial Blood Ionized Calcium Coronavirus (PCR) SARS-CoV-2 IgG Ab 07/26/20 07/26/20 07/26/20 14:23 17:19 23:33 WBC 12.0 H RBC 3.12 L Hgb 9.5 L Hct 28.6 L MCH MCHC Plt Count Lymph % (Auto) 4.2 L Lymph # (Auto) 0.5 L Seg Neutrophils % 89.8 H Seg Neuts % (Manual) Lymphocytes % (Manual) Seg Neutrophils # 10.8 H Seg Neutrophils # Man Lymphocytes # (Manual) D-Dimer ABG pH POC ABG pCO2 POC ABG pO2 ABG pO2 ABG HCO3 ABG O2 Saturation ABG Base Excess ABG Hemoglobin ABG Oxyhemoglobin ABG Sodium ABG Potassium ABG Chloride ABG Glucose Oxyhemoglobin Sodium Chloride Carbon Dioxide BUN Creatinine Glucose POC Glucose 202 H 122 H Calcium Ferritin Lactate Dehydrogenase C-Reactive Protein Total Protein Albumin Arterial Blood Glucose Arterial Blood Ionized Calcium Coronavirus (PCR) SARS-CoV-2 IgG Ab 07/27/20 07/27/20 07/27/20 04:30 05:54 12:06 WBC RBC Hgb Hct MCH MCHC Plt Count Lymph % (Auto) Lymph # (Auto) Seg Neutrophils % Seg Neuts % (Manual) Lymphocytes % (Manual) Seg Neutrophils # Seg Neutrophils # Man Lymphocytes # (Manual) D-Dimer ABG pH POC ABG pCO2 POC ABG pO2 ABG pO2 49.0 L ABG HCO3 35.7 H ABG O2 Saturation 87.6 L ABG Base Excess 10.1 H ABG Hemoglobin 11.5 L ABG Oxyhemoglobin ABG Sodium ABG Potassium ABG Chloride ABG Glucose Oxyhemoglobin 85.4 L Sodium Chloride Carbon Dioxide BUN Creatinine Glucose POC Glucose 164 H 149 H Calcium Ferritin Lactate Dehydrogenase C-Reactive Protein Total Protein Albumin Arterial Blood Glucose Arterial Blood Ionized Calcium Coronavirus (PCR) SARS-CoV-2 IgG Ab 07/27/20 07/27/20 07/27/20 13:00 14:18 14:18 WBC 12.2 H RBC 3.33 L Hgb 10.0 L Hct MCH MCHC Plt Count Lymph % (Auto) Lymph # (Auto) Seg Neutrophils % Seg Neuts % (Manual) 90.0 H Lymphocytes % (Manual) 7.0 L Seg Neutrophils # Seg Neutrophils # Man 11.0 H Lymphocytes # (Manual) 0.9 L D-Dimer ABG pH 7.313 L POC ABG pCO2 POC ABG pO2 ABG pO2 107.5 H ABG HCO3 37.6 H ABG O2 Saturation ABG Base Excess 8.1 H ABG Hemoglobin 10.1 L ABG Oxyhemoglobin ABG Sodium ABG Potassium ABG Chloride ABG Glucose Oxyhemoglobin Sodium Chloride 97.6 L Carbon Dioxide 35 H BUN 18 H Creatinine Glucose 135 H POC Glucose Calcium 8.3 L Ferritin Lactate Dehydrogenase C-Reactive Protein Total Protein Albumin Arterial Blood Glucose Arterial Blood Ionized Calcium Coronavirus (PCR) SARS-CoV-2 IgG Ab 07/27/20 07/27/20 07/28/20 17:09 23:14 04:15 WBC RBC Hgb Hct MCH MCHC Plt Count Lymph % (Auto) Lymph # (Auto) Seg Neutrophils % Seg Neuts % (Manual) Lymphocytes % (Manual) Seg Neutrophils # Seg Neutrophils # Man Lymphocytes # (Manual) D-Dimer ABG pH 7.317 L POC ABG pCO2 POC ABG pO2 ABG pO2 130.3 H ABG HCO3 40.9 H ABG O2 Saturation ABG Base Excess 13.5 H ABG Hemoglobin 5.8 L ABG Oxyhemoglobin ABG Sodium ABG Potassium ABG Chloride ABG Glucose Oxyhemoglobin Sodium Chloride Carbon Dioxide BUN Creatinine Glucose POC Glucose 115 H 139 H Calcium Ferritin Lactate Dehydrogenase C-Reactive Protein Total Protein Albumin Arterial Blood Glucose Arterial Blood Ionized Calcium Coronavirus (PCR) SARS-CoV-2 IgG Ab 07/28/20 07/28/20 07/28/20 05:34 09:20 09:20 WBC RBC 2.89 L Hgb 9.5 L Hct 26.6 L MCH 33 H MCHC 36 H Plt Count 123 L Lymph % (Auto) Lymph # (Auto) Seg Neutrophils % Seg Neuts % (Manual) 89.0 H Lymphocytes % (Manual) 5.0 L Seg Neutrophils # Seg Neutrophils # Man 8.6 H Lymphocytes # (Manual) 0.5 L D-Dimer ABG pH POC ABG pCO2 POC ABG pO2 ABG pO2 ABG HCO3 ABG O2 Saturation ABG Base Excess ABG Hemoglobin ABG Oxyhemoglobin ABG Sodium ABG Potassium ABG Chloride ABG Glucose Oxyhemoglobin Sodium 134 L Chloride 95.6 L Carbon Dioxide 39 H BUN Creatinine 0.3 L Glucose 131 H POC Glucose 130 H Calcium 7.9 L Ferritin Lactate Dehydrogenase C-Reactive Protein Total Protein Albumin Arterial Blood Glucose Arterial Blood Ionized Calcium Coronavirus (PCR) SARS-CoV-2 IgG Ab 07/28/20 11:50 WBC RBC Hgb Hct MCH MCHC Plt Count Lymph % (Auto) Lymph # (Auto) Seg Neutrophils % Seg Neuts % (Manual) Lymphocytes % (Manual) Seg Neutrophils # Seg Neutrophils # Man Lymphocytes # (Manual) D-Dimer ABG pH POC ABG pCO2 POC ABG pO2 ABG pO2 ABG HCO3 ABG O2 Saturation ABG Base Excess ABG Hemoglobin ABG Oxyhemoglobin ABG Sodium ABG Potassium ABG Chloride ABG Glucose Oxyhemoglobin Sodium Chloride Carbon Dioxide BUN Creatinine Glucose POC Glucose 128 H Calcium Ferritin Lactate Dehydrogenase C-Reactive Protein Total Protein Albumin Arterial Blood Glucose Arterial Blood Ionized Calcium Coronavirus (PCR) SARS-CoV-2 IgG Ab Chest x-ray: image reviewed Allied health notes reviewed: nursing
[2020-07-28] MEDS ORDERED: FUROSEMIDE 40 MG/4 ML INJ IV ONE (18:00)
[2020-07-28] MEDS: INSULIN GLARGINE 100 UNITS/ML SUB-Q SCH (18:38)
[2020-07-29] MEDS: fentaNYL DRIP Premix 2,000 MCG/100 ML BAG IV SCH ×5 (01:05→23:09)
[2020-07-29] MEDS: MIDAZOLAM 100 MG in SODIUM CHLORIDE 0.9% 80 ML IV SCH ×2 (01:06→19:31)
[2020-07-29] MEDS: INSULIN REGULAR, HUMAN 100 UNIT/ML 3ML VIAL SUB-Q SCH ×4 (05:40→23:02)
[2020-07-29] MEDS: methylPREDNISolone Sod Succinate 40 MG/1 ML INJ IV SCH ×3 (06:30→22:08)
[2020-07-29] MEDS: GABAPENTIN 300 MG CAP PO SCH ×3 (06:30→21:54)
[2020-07-29 08:43] LABS: Hematocrit 32.1 % (30.3-42.9); Hemoglobin 10.5 gm/dl (10.1-14.3); Mean Corpuscular HGB Conc 33 % (30-34); Mean Corpuscular Volume 92 fl (79-97); Platelet Count 139 K/mm3 (140-440); Red Blood Count 3.49 M/mm3 (3.65-5.03); Red Cell Distribution Width 14.4 % (13.2-15.2)
[2020-07-29] MEDS: BUDESONIDE 0.5 MG/2 ML NEBU IH SCH ×2 (08:56→21:08)
[2020-07-29] MEDS: ARFORMOTEROL 15 MCG/2 ML NEBU IH SCH ×2 (08:56→21:08)
[2020-07-29] MEDS: IPRATROPIUM/ALBUTEROL SULFATE 3 ML AMPUL.NEB IH SCH ×3 (08:56→21:08)
[2020-07-29 09:02] LABS: Blood Urea Nitrogen 17 mg/dL (7-17); Calcium 9.4 mg/dL (8.4-10.2); Hemolysis Index 32
[2020-07-29 09:11] LABS: BUN/Creatinine Ratio 34
[2020-07-29] MEDS: LANSOPRAZOLE 30 MG SOLUTAB FEEDTUBE SCH (10:18)
[2020-07-29] MEDS: DOCUSATE SODIUM 100 MG/10 ML ORAL LIQD PO SCH ×2 (10:18→21:53)
[2020-07-29] MEDS: ZINC SULFATE 220 MG CAP PO SCH ×2 (10:19→21:54)
[2020-07-29] MEDS: VENLAFAXINE 37.5 MG TAB PO SCH (10:19)
[2020-07-29] MEDS: ASPIRIN 81 MG TAB CHEW PO SCH (10:19)
[2020-07-29] MEDS: ASCORBIC ACID 500 MG TAB PO SCH ×2 (10:19→21:54)
[2020-07-29] MEDS: QUEtiapine 200 MG TAB PO SCH ×2 (10:19→21:54)
[2020-07-29] MEDS: HYDROXYCHLOROQUINE 200 MG TAB PO SCH (10:19)
[2020-07-29] MEDS: QUEtiapine 100 MG TAB PO SCH ×2 (10:19→21:54)
[2020-07-29] MEDS: ENOXAPARIN 30 MG/0.3 ML INJ SUB-Q SCH ×2 (10:19→21:52)
--- NOTE | 2020-07-29 10:29 | Progress Note ---
Assessment and Plan Assessment and plan: --Acute asthma exacerbation on iv steroid Oxygen supplementation as needed Continue montelukast Monitor oxygen saturations closely -- COVID-19 Tested positive for COVID-19 in [facility] iv steroid, s/p Remdesivir for 5 days s/p convalescent plasma transfusion Procalcitonin <0.05, ID on board follow ferritin, ldh, d-dimer levels -- Acute hypoxic respiratory failure Now intubated on 07/09/20 overnight From COVID-19 and asthma exacerbation Continue steroids Continue oxygen supplementation -- GERD (gastroesophageal reflux disease) cont Pantoprazole --SLE (systemic lupus erythematosus related syndrome) Continue home medications-hydroxychloroquine -- DVT prophylaxis Lovenox 30 mg twice daily -- Full code status brief History: 50-year-old female with a past medical history of asthma, hypertension, and lupus complains of generalized body weakness, fever and shortness of breath. Patient states the symptoms started right after she was discharged from [place] on 07/05. She has associated wheezing, fever, cough and she has been using her inhalers with no significant effect. She also has associated diarrhea. Of note, she was hospitalized here in [facility] on 06/28 for asthma exacerbation and had a negative Covid test during the admission. She was treated and discharged. She presented to [facility] for further evaluation after discharge from here and over there, she was found to have positive COVID-19 test and she was placed on steroids and subsequently discharged on Eliquis prophylaxis for DVT. She states that she did not receive remdesivir during the admission. She was discharged from [place] on 07/05. She went home and felt worse. She said that she passed out about 2 times. Due to persistent symptoms, she called EMS who brought her to [facility] for further evaluation. Daily course: 07/07. Patient seen and examined at bedside this morning. Patient is wheezing and slightly short of breath. Change steroids to Solu-Medrol 60 every 6. Added formoterol and budesonide. ID evaluation pending. Started patient on remdesivir as she is short of breath. 07/07: Placed on BIPAP this AM. Will need pulm evaluation. Solumedrol 60mg q6. STAT blood gas ordered. She will be transferred to [facility]. 07/08: Patient took oxygen off and attempts to go to the bathroom and subsequently became hypoxemic with sats down into the low 80s. Patient became weak short of breath. After that time patient had persistent coughing and cannot maintain sats until nonrebreather was placed. Patient is transferred to the ICU unit and monitored for respiratory failure possibly requiring intubation. 07/09: ID recommended for convalescent plasma, ordered. Patient intubated overnight. Continue to monitor clinically, scheduled lab, follow inflammatory markers 07/10: Wait for convalescent plasma transfusion, wean off from ventilator as tolerated 07/11: Called patient's daughter and updated. Continue to wean off vent as tolerated, continue tube feeding, monitor vital sign CBC BMP daily. 07/12: remains intubated and sedated. follow inflammatory markers - wean off vent as tolerated 07/13: wean off vent as tolerated, cxr in the am. reviewed vitals 07/14: remains intubated, has not received convalescent plasma yet. Reviewed vitals, tolerating tube feeding. Wean off vent per critical care as tolerated. 07/15: cont to provide supportive care, wean off vent as tolerated - difficult to wean off. 07/16: CXR findings improving, cont to wean off vent 07/17: Follow inflammatory markers, monitor off antibiotics. Wean off vent per pulmonary as tolerated 07/18: Wean off vent per pulmonary as tolerated,Follow inflammatory markers, monitor off antibiotics. 07/19: Wean off vent per pulmonary as tolerated,Follow inflammatory markers, monitor off antibiotics. SBT trial 07/20: Wean off vent as tolerated, continue supportive care, follow inflammatory markers 07/21: continue supportive care, follow inflammatory markers, wean off vent as tolerated 07/22: Continue to wean off from ventilator as tolerated per pulmonary recommendation, follow inflammatory markers. Repeat CBC BMP in the morning. We will repeat Covid test tomorrow to see if patient cleared the infection. 07/23. Continue to wean off from ventilator as tolerated per pulmonary recommen dation, follow inflammatory markers. Currently AC mode, rate 16, tidal volume 450 with FiO2 75%vand PEEP 14 07/24/2020. Continue ventilatory support with AC mode, rate 16, tidal volume 450, FiO2 100% and PEEP of 16. Continue Brovana and Pulmicort. Continue IV steroids 40 mg IV every 8 hours. Anticoagulation with Lovenox 30 mg twice daily. Patient currently sedated with Versed and fentanyl. 07/25/2020. Continue ventilatory support with AC mode, rate 16, tidal volume 450, FiO2 75% and PEEP of 16. Continue Brovana and Pulmicort. Continue IV steroids 40 mg IV every 8 hours. Anticoagulation with Lovenox 30 mg twice daily. Patient currently sedated with Versed and fentanyl. Continue to wean per pulmonary recommendations. 07/26/2020. Continue ventilatory support with AC mode, rate 16, tidal volume 450, FiO2 85% and PEEP of 16. Continue Brovana and Pulmicort. Continue IV steroids 40 mg IV every 8 hours. Anticoagulation with Lovenox 30 mg twice daily. Patient currently sedated with Versed and fentanyl. Continue to wean per protocol. 07/27/2020. Continue ventilatory support with AC mode, rate 16, tidal volume 450, FiO2 100% and PEEP of 16. Patient with increased oxygen requirements the past couple of days. Continue Brovana and Pulmicort. Continue IV steroids 40 m g IV every 8 hours. Anticoagulation with Lovenox 30 mg twice daily. Patient currently sedated with Versed and fentanyl. Dose of Lasix given by pulmonary yesterday to achieve negative fluid balance. Follow-up serial chest x-ray 07/28/2020. Continue ventilatory support with AC mode, rate 16, tidal volume 450, FiO2 100% and PEEP of 16. Wean FiO2 per protocol. Continue Brovana and Pulmicort. Continue IV steroids 40 mg IV every 8 hours. Anticoagulation with Lovenox 30 mg twice daily. Patient currently sedated with Versed and fentanyl. 07/29/2020. Continue ventilatory support with AC mode, rate 16, tidal volume 450, FiO2 100% and PEEP of 16. Wean FiO2 per protocol. Continue Brovana and Pulmicort. Continue IV steroids 40 mg IV every 8 hours. Anticoagulation with Lovenox 30 mg twice daily. Wean sedation as tolerated. The high probability of a clinically significant, sudden or life threatening deterioration of the [[employer], respiratory, [employer]] system(s) required my full and direct attention, intervention and personal management. The aggregate critical care time was [32] minutes. This time is in addition to time spent performing reported procedures but includes the following: [x] Data Review and interpretation [x] Patient assessment and monitoring of vital signs [x] Documentation [x] Medication orders and management History Interval history: No new issues overnight. Hospitalist Physical - Constitutional Vitals: Temp Pulse Resp BP Pulse Ox 97.1 F L 94 H 20 119/62 95 07/29/20 04:00 07/29/20 08:56 07/29/20 08:56 07/29/20 08:56 07/29/20 08:56 General appearance: Present: no acute distress, well-nourished - EENT Eyes: Present: PERRL, EOM intact ENT: hearing intact, clear oral mucosa, dentition normal - Neck Neck: Present: supple, normal ROM - Respiratory Respiratory effort: normal Respiratory: bilateral: CTA - Cardiovascular Rhythm: regular Heart Sounds: Present: S1 & S2. Absent: gallop, rub - Extremities Extremities: no ischemia, No edema, Full ROM - Abdominal General gastrointestinal: soft, non-tender, non-distended, normal bowel sounds - Integumentary Integumentary: Present: clear, warm, dry - Neurologic Neurologic: CNII-XII intact, moves all extremities Results - Labs CBC & Chem 7: 07/29/20 07:54 07/29/20 07:54 Labs: Laboratory Last Values WBC 11.1 K/mm3 (4.5-11.0) H 07/29/20 07:54 RBC 3.49 M/mm3 (3.65-5.03) L 07/29/20 07:54 Hgb 10.5 gm/dl (10.1-14.3) 07/29/20 07:54 Hct 32.1 % (30.3-42.9) 07/29/20 07:54 MCV 92 fl (79-97) 07/29/20 07:54 MCH 30 pg (28-32) 07/29/20 07:54 MCHC 33 % (30-34) 07/29/20 07:54 RDW 14.4 % (13.2-15.2) 07/29/20 07:54 Plt Count 139 K/mm3 (140-440) L 07/29/20 07:54 Lymph % (Auto) 4.2 % (13.4-35.0) L 07/26/20 14:23 Bonner % (Auto) 4.8 % (0.0-7.3) 07/26/20 14:23 Eos % (Auto) 0.8 % (0.0-4.3) 07/26/20 14:23 Baso % (Auto) 0.4 % (0.0-1.8) 07/26/20 14:23 Lymph # (Auto) 0.5 K/mm3 (1.2-5.4) L 07/26/20 14:23 Bonner # (Auto) 0.6 K/mm3 (0.0-0.8) 07/26/20 14:23 Eos # (Auto) 0.1 K/mm3 (0.0-0.4) 07/26/20 14:23 Baso # (Auto) 0.1 K/mm3 (0.0-0.1) 07/26/20 14:23 Add Manual Diff Complete 07/28/20 09:20 Total Counted 100 07/28/20 09:20 Seg Neutrophils % Informatics Specialist 07/29/20 07:54 Seg Neuts % (Manual) 89.0 % (40.0-70.0) H 07/28/20 09:20 Band Neutrophils % 4.0 % 07/28/20 09:20 Lymphocytes % (Manual) 5.0 % (13.4-35.0) L 07/28/20 09:20 Reactive Lymphs % (Man) 0 % 07/28/20 09:20 Monocytes % (Manual) 2.0 % (0.0-7.3) 07/28/20 09:20 Eosinophils % (Manual) 0 % (0.0-4.3) 07/28/20 09:20 Basophils % (Manual) 0 % (0.0-1.8) 07/28/20 09:20 Metamyelocytes % 0 % 07/28/20 09:20 Myelocytes % 0 % 07/28/20 09:20 Promyelocytes % 0 % 07/28/20 09:20 Blast Cells % 0 % 07/28/20 09:20 Nucleated RBC % Not Reportable 07/28/20 09:20 Seg Neutrophils # 10.8 K/mm3 (1.8-7.7) H 07/26/20 14:23 Seg Neutrophils # Man 8.6 K/mm3 (1.8-7.7) H 07/28/20 09:20 Band Neutrophils # 0.4 K/mm3 07/28/20 09:20 Lymphocytes # (Manual) 0.5 K/mm3 (1.2-5.4) L 07/28/20 09:20 Abs React Lymphs (Man) 0.0 K/mm3 07/28/20 09:20 Monocytes # (Manual) 0.2 K/mm3 (0.0-0.8) 07/28/20 09:20 Eosinophils # (Manual) 0.0 K/mm3 (0.0-0.4) 07/28/20 09:20 Basophils # (Manual) 0.0 K/mm3 (0.0-0.1) 07/28/20 09:20 Metamyelocytes # 0.0 K/mm3 07/28/20 09:20 Myelocytes # 0.0 K/mm3 07/28/20 09:20 Promyelocytes # 0.0 K/mm3 07/28/20 09:20 Blast Cells # 0.0 K/mm3 07/28/20 09:20 WBC Morphology Not Reportable 07/28/20 09:20 Hypersegmented Neuts Not Reportable 07/28/20 09:20 Hyposegmented Neuts Not Reportable 07/28/20 09:20 Hypogranular Neuts Not Reportable 07/28/20 09:20 Smudge Cells Not Reportable 07/28/20 09:20 Toxic Granulation Not Reportable 07/28/20 09:20 Toxic Vacuolation Not Reportable 07/28/20 09:20 Dohle Bodies Not Reportable 07/28/20 09:20 Pelger-Huet Anomaly Not Reportable 07/28/20 09:20 Savanna Rods Not Reportable 07/28/20 09:20 Platelet Estimate Consistent w auto 07/28/20 09:20 Clumped Platelets Not Reportable 07/28/20 09:20 Plt Clumps, EDTA Not Reportable 07/28/20 09:20 Large Platelets Not Reportable 07/28/20 09:20 Giant Platelets Not Reportable 07/28/20 09:20 Platelet Satelliting Not Reportable 07/28/20 09:20 Plt Morphology Comment Not Reportable 07/28/20 09:20 RBC Morphology Normal 07/28/20 09:20 Dimorphic RBCs Not Reportable 07/28/20 09:20 Polychromasia Not Reportable 07/28/20 09:20 Hypochromasia Not Reportable 07/28/20 09:20 Poikilocytosis Not Reportable 07/28/20 09:20 Anisocytosis Not Reportable 07/28/20 09:20 Microcytosis Not Reportable 07/28/20 09:20 Macrocytosis Not Reportable 07/28/20 09:20 Spherocytes Not Reportable 07/28/20 09:20 Pappenheimer Bodies Not Reportable 07/28/20 09:20 Sickle Cells Not Reportable 07/28/20 09:20 Target Cells Not Reportable 07/28/20 09:20 Tear Drop Cells Not Reportable 07/28/20 09:20 Ovalocytes Not Reportable 07/28/20 09:20 Helmet Cells Not Reportable 07/28/20 09:20 [place] Bodies Not Reportable 07/28/20 09:20 [place] Rings Not Reportable 07/28/20 09:20 [place] Cells Not Reportable 07/28/20 09:20 Bite Cells Not Reportable 07/28/20 09:20 Crenated Cell Not Reportable 07/28/20 09:20 Elliptocytes Not Reportable 07/28/20 09:20 Acanthocytes (Spur) Not Reportable 07/28/20 09:20 Rouleaux Not Reportable 07/28/20 09:20 Hemoglobin C Crystals Not Reportable 07/28/20 09:20 Schistocytes Not Reportable 07/28/20 09:20 Malaria parasites Not Reportable 07/28/20 09:20 Junaid Bodies Not Reportable 07/28/20 09:20 Hem Pathologist Commnt No 07/28/20 09:20 D-Dimer 826.36 ng/mlDDU (0-234) H 07/13/20 07:20 ABG pH 7.378 (7.320-7.450) 07/29/20 03:18 POC ABG pCO2 69.5 mmHg (32.0-48.0) H 07/29/20 03:18 ABG pCO2 81.7 mm Hg 07/28/20 04:15 POC ABG pO2 109.3 mmHg (83-108) H 07/29/20 03:18 ABG pO2 130.3 mm Hg (80.0-90.0) H 07/28/20 04:15 POC ABG HCO3 40 07/29/20 03:18 ABG HCO3 40.9 mmol/L (20.0-26.0) H 07/28/20 04:15 ABG O2 Saturation 98.1 % (95.0-99.0) 07/28/20 04:15 ABG O2 Content 8.2 (0.0-44) 07/28/20 04:15 POC ABG Base Excess 12.5 07/29/20 03:18 ABG Base Excess 13.5 mmol/L (-2.0-3.0) H 07/28/20 04:15 ABG Hemoglobin 10.8 (12.0-17.5) L 07/29/20 03:18 ABG Oxyhemoglobin 93.6 (94-98) L 07/19/20 16:29 ABG Carboxyhemoglobin 1.7 % (0.0-5.0) 07/28/20 04:15 ABG Methemoglobin 0.6 % (0.0-1.5) 07/28/20 04:15 ABG Sodium 138.2 mmol/L (136.0-145.0) 07/29/20 03:18 ABG Potassium 4.4 mmol/L (3.40-4.50) 07/29/20 03:18 ABG Chloride 95.0 mmol/L (98-107) L 07/29/20 03:18 ABG Glucose 138 mg/dL (65-95) H 07/29/20 03:18 Oxyhemoglobin 95.8 % (95.0-99.0) 07/28/20 04:15 Carboxyhemoglobin 0.7 (0.5-1.5) 07/19/20 16:29 FiO2 100 07/29/20 03:18 Sodium 140 mmol/L (137-145) 07/29/20 07:54 Potassium TNR 07/29/20 07:54 Chloride 94.5 mmol/L (98-107) L 07/29/20 07:54 Carbon Dioxide 40 mmol/L (22-30) H 07/29/20 07:54 Anion Gap 11 mmol/L 07/29/20 07:54 BUN 17 mg/dL (7-17) 07/29/20 07:54 Creatinine 0.5 mg/dL (0.6-1.2) L D 07/29/20 07:54 Estimated GFR > 60 ml/min 07/29/20 07:54 BUN/Creatinine Ratio 34 % 07/29/20 07:54 Glucose 104 mg/dL (65-100) H 07/29/20 07:54 POC Glucose 100 mg/dL (70-105) 07/29/20 05:44 Lactic Acid 1.90 mmol/L (0.7-2.0) 07/09/20 Unknown Calcium 9.4 mg/dL (8.4-10.2) D 07/29/20 07:54 Phosphorus 3.20 mg/dL (2.5-4.5) 07/08/20 16:13 Magnesium 2.20 mg/dL (1.7-2.3) 07/08/20 16:13 Ferritin 219.8 ng/mL (10.0-200.0) H 07/13/20 07:20 Total Bilirubin 0.20 mg/dL (0.1-1.2) 07/13/20 07:20 AST 14 units/L (5-40) 07/13/20 07:20 ALT 13 units/L (7-56) 07/13/20 07:20 Alkaline Phosphatase 53 units/L (35-129) 07/13/20 07:20 Lactate Dehydrogenase 531 units/L (91-180) H 07/15/20 09:00 C-Reactive Protein 1.80 mg/dL (0.00-1.30) H 07/13/20 07:20 Total Protein 5.8 g/dL (6.3-8.2) L 07/13/20 07:20 Albumin 3.2 g/dL (3.9-5) L 07/13/20 07:20 Albumin/Globulin Ratio 1.2 % 07/13/20 07:20 Triglycerides 130 mg/dL (2-149) 07/23/20 04:42 Procalcitonin < 0.05 ng/mL (<0.15) 07/10/20 12:10 Arterial Blood Glucose 138 mg/dL (65-95) H 07/29/20 03:18 Arterial Blood Ionized Calcium 4.8 mg/dL (4.6-5.3) 07/29/20 03:18 Urine Color Yellow (Yellow) 07/11/20 09:30 Urine Turbidity Clear (Clear) 07/11/20 09:30 Urine pH 5.0 (5.0-7.0) 07/11/20 09:30 Ur Specific [place] 1.028 (1.003-1.030) 07/11/20 09:30 Urine Protein <15 mg/dl mg/dL (Negative) 07/11/20 09:30 Urine Glucose (UA) Neg mg/dL (Negative) 07/11/20 09:30 Urine Ketones Neg mg/dL (Negative) 07/11/20 09:30 Urine Blood Neg (Negative) 07/11/20 09:30 Urine Nitrite Neg (Negative) 07/11/20 09:30 Urine Bilirubin Neg (Negative) 07/11/20 09:30 Urine Urobilinogen 2.0 mg/dL (<2.0) 07/11/20 09:30 Ur Leukocyte Esterase Neg (Negative) 07/11/20 09:30 Urine WBC (Auto) 1.0 /HPF (0.0-6.0) 07/11/20 09:30 Urine RBC (Auto) 1.0 /HPF (0.0-6.0) 07/11/20 09:30 U Epithel Cells (Auto) 1.0 /HPF (0-13.0) 07/11/20 09:30 Urine Mucus Few /HPF 07/11/20 09:30 Coronavirus (PCR) Positive (Negative) A 07/23/20 Unknown SARS-CoV-2 IgG Ab Reactive (NonReactive) A 07/15/20 14:30 Blood Type O POSITIVE 07/09/20 15:30 Antibody Screen Negative 07/09/20 15:30 Microbiology: Microbiology 07/27/20 14:18 Peripheral/Venous Blood Culture - Preliminary NO GROWTH AFTER 24 HOURS 07/27/20 14:18 Peripheral/Venous Blood Culture - Preliminary NO GROWTH AFTER 24 HOURS - Diagnostic Impressions Diagnostic Impressions: Echocardiogram 07/19/20 13:13 Transthoracic Echocardiogram Indication: CHF BP: 106/58 Conclusions *The left ventricular systolic function is within normal limits. There are no wall motion abnormalities observed. *The estimated ejection fraction is 60-65%. *Normal left ventricular diastolic filling is observed. Findings Procedure Info: The study quality is fair. Left Ventricle: The left ventricular chamber size, wall thickness and systolic function are within normal limits. There are no wall motion abnormalities observed. Ejection fraction is normal. The estimated ejection fraction is 60-65%. Normal left ventricular diastolic filling is observed. Left Atrium: The left atrium is normal in size with no visual thrombus identified. Right Ventricle: The right ventricular chamber size and systolic function are within normal limits. Right Atrium: The right atrium appears normal. Aortic Valve: The aortic valve is trileaflet. The leaflets are thin with normal excursion. There is no aortic stenosis or regurgitation present. Mitral Valve: The mitral valve leaflets are mildly thickened. There is trace of mitral regurgitation. There is no evidence of mitral stenosis. Tricuspid Valve: The tricuspid valve leaflets are normal. There is trace tricuspid regurgitation. The right ventricular systolic pressure is calculated at 14 mmHg. There is no tricuspid stenosis. Pulmonic Valve: The pulmonic valve appears normal. There is mild pulmonic regurgitation. There is no pulmonic stenosis. Pericardium: The pericardium appears normal. Aorta: The aorta appears normal. Pulmonary Artery: The main pulmonary artery appears normal. Venous: The inferior vena cava appears normal in size. There is a greater than 50% respiratory change in the inferior vena cava dimension. Measurements Chambers 2D Name Value Normal Range IVSd (2D) 1.08 cm (0.6 - 1.1) LVPWd (2D) 0.91 cm (0.6 - 1.1) LVIDd (2D) 4.61 cm (3.7 - 5.6) LVIDs (2D) 3.12 cm (2 - 3.8) LV FS (2D) 32.38 % - EF Teichholz (2D) 60.72 % - Ao root diameter (2D) 3.01 cm (2 - 3.7) Volumes/Mass Name Value Normal Range LA ESV SP 4CH (A/L) 57.18 ml - LA ESV SP 2CH (A/L) 62.63 ml - LA ESV BP (A/L) 60.68 ml - LA ESV BP (A/L) index 28.22 ml/m2 - LA ESV SP 4CH (MOD) 51.17 ml - LA ESV SP 2CH (MOD) 57.8 ml - LA ESV BP (MOD) 54.73 ml - LA ESV BP (MOD) index 25.45 ml/m2 - LV EDV SP 4CH (MOD) 115.34 ml - LV ESV SP 4CH (MOD) 43.26 ml - EF SP 4CH (MOD) 62.5 % - LV EDV SP 2CH (MOD) 43.71 ml - LV ESV SP 2CH (MOD) 17.14 ml - EF SP 2CH (MOD) 60.79 % - LV EDV BP 73.15 ml - LV ESV BP 27.92 ml - BP EF (MOD) 61.83 % - Diastolic/Systolic Function Name Value Normal Range MV E-wave Vmax 0.88 m/sec - MV deceleration time 157.66 msec - MV A-wave Vmax 0.91 m/sec - MV E:A ratio 0.96 ratio - Aortic Valve Name Value Normal Range AV Vmax 1.54 m/sec - AV VTI 31.46 cm - AV peak gradient 9.51 mmHg - AV mean gradient 5.1 mmHg - LVOT diameter 1.95 cm - LVOT Vmax 1.21 m/sec - LVOT VTI 27.59 cm - LVOT peak gradient 5.83 mmHg - LVOT mean gradient 3.3 mmHg - SV LVOT 82.76 ml - SMTIH (continuity Vmax) 2.35 cm2 - SMITH (continuity VTI) 2.63 cm2 - Ascending Ao 2.94 cm - Tricuspid Valve Name Value Normal Range TV E-wave Vmax 0.49 m/sec - TR Vmax 1.72 m/sec - TR peak gradient 11.86 mmHg - RAP 3 mmHg - RVSP 14 mmHg - IVC diameter 1.91 cm (1.2 - 2.3) Pulmonic Valve/Qp:Qs Name Value Normal Range PV Vmax 0.94 m/sec - PV peak gradient 3.54 mmHg - FL end-diastolic Vmax 0.54 m/sec - RVOT Vmax 0.68 m/sec - RVOT VTI 13.18 cm - RVOT peak gradient 1.82 mmHg - PV acceleration time 117.98 msec - Tejada/IV: Voiding Method Indwelling Catheter IV Catheter Type [Left Upper PICC Line arm] IV Catheter Type [Right INT / Saline Lock Forearm] IV Catheter Type [Left Wrist] INT / Saline Lock IV Catheter Type [Left Hand] Peripheral IV Active Medications - Current Medications Current Medications: Generic Name Dose Route Start Last Admin Trade Name Freq PRN Reason Stop Dose Admin Acetaminophen 650 mg 07/06/20 13:39 07/27/20 18:34 Tylenol PO 650 mg Q4H PRN Administration Pain MILD(1-3)/Fever >100.5/WILLETT Albuterol/Ipratropium 1 ampul 07/26/20 14:00 07/29/20 08:56 Duoneb *Not For Prn Use* IH 1 ampul TIDRT ROMMEL Administration Alprazolam 0.5 mg 07/07/20 12:28 07/27/20 03:15 Xanax PO 0.5 mg Q8H PRN Administration Anxiety Lipase/Protease/Amylase 1 each 07/08/20 14:50 Pancremaria del rosario Price 10,500 Unit FEEDTUBE PRN PRN For Clogged Feeding Tube Arformoterol Tartrate 15 mcg 07/07/20 09:15 07/29/20 08:56 Brovana Nebu IH 15 mcg Q12HRT ROMMEL Administration Ascorbic Acid 500 mg 07/08/20 22:00 07/29/20 10:19 Vitamin C PO 500 mg BID ROMMEL Administration Aspirin 81 mg 07/06/20 14:00 07/29/20 10:19 Baby Aspirin PO 81 mg QDAY ROMMEL Administration Budesonide 0.5 mg 07/07/20 09:15 07/29/20 08:56 Pulmicort IH 0.5 mg Q12HRT ROMMEL Administration Dextrose 50 ml 07/12/20 16:58 D50w (25gm) Syringe IV Q30MIN PRN Hypoglycemia Protocol Docusate Sodium 100 mg 07/16/20 22:00 07/29/20 10:18 Colace PO 100 mg BID ROMMEL Administration Enoxaparin Sodium 30 mg 07/06/20 15:00 07/29/20 10:19 Enoxaparin SUB-Q 30 mg BID ROMMEL Administration Protocol Fentanyl 50 mcg 07/08/20 13:16 07/11/20 09:41 Sublimaze IV 50 mcg Q10MIN PRN Administration ANALGESIA Gabapentin 600 mg 07/25/20 14:00 07/29/20 06:30 Gabapentin PO 600 mg Q8HR ROMMEL Administration Hydrophilic Ointment 1 applic 07/08/20 13:16 07/22/20 23:01 Vaseline Lip Therapy TP 1 applic Q2HR PRN Administration Dry Lips Hydroxychloroquine Sulfate 200 mg 07/07/20 10:00 07/29/20 10:19 Plaquenil PO 200 mg QDAY ROMMEL Administration Fentanyl Citrate 2,000 mcg in 100 mls @ 4.825 mls/hr 07/08/20 14:00 07/29/20 08:17 Fentanyl Drip Premix IV 4 mcg/kg/hr TITR ROMMEL 19.3 mls/hr Administration Protocol 1 MCG/KG/HR Midazolam HCl 100 mg/ Sodium 100 mls @ 2 mls/hr 07/08/20 15:00 07/29/20 01:06 Chloride IV 5 mg/hr TITR ROMMEL 5 mls/hr Administration Protocol 2 MG/HR Sodium Chloride 500 mls @ 10 mls/hr 07/15/20 15:00 Nacl 0.9% 500 Ml IV DIRECT ROMMEL Propofol 1,000 mg in 100 mls @ 3.3 mls/hr 07/19/20 13:00 07/29/20 06:31 Diprivan 10 Mg/Ml IV 30 mcg/kg/min TITR ROMMEL 19.8 mls/hr Administration Protocol 5 MCG/KG/MIN Norepinephrine 4 mg in 250 mls @ 7.5 mls/hr 07/27/20 05:00 Levophed Drip 4 Mg/Ns 250 Ml IV TITR ROMMEL Protocol 2 MCG/MIN Insulin Glargine 5 units 07/12/20 17:00 07/28/20 18:38 Lantus SUB-Q 5 units Q24H ROMMEL Administration Insulin Human Regular 0 unit 07/12/20 17:00 07/29/20 05:40 Humulin R SUB-Q Not Given Q6H [facility] Protocol Lansoprazole 30 mg 07/10/20 10:00 07/29/20 10:18 Prevacid Solutab FEEDTUBE 30 mg QDAY ROMMEL Administration Methylprednisolone Sodium Succinate 40 mg 07/22/20 14:00 07/29/20 06:30 Solu-Medrol IV 40 mg Q8H ROMMEL Administration Midazolam HCl 2 mg 07/08/20 14:33 07/18/20 23:46 Versed IV 2 mg Q10MIN PRN Administration Sedation Multi-Ingred Cream/Lotion/Oil/Oint 1 applic 07/08/20 13:16 Artificial Tears Ophth Oint OU Q4HR PRN Dry Eye(s) Ondansetron HCl 4 mg 07/06/20 13:39 07/08/20 10:44 Zofran IV 4 mg Q8H PRN Administration Nausea And Vomiting Polyethylene Glycol 17 gm 07/16/20 22:00 07/28/20 22:03 Miralax 3350 PO 17 gm QHS ROMMEL Administration Pseudoephedrine/Acetam/Chlorphenir 10 ml 07/07/20 01:17 07/08/20 08:30 Robitussin Ac PO 10 ml Q4H PRN Administration Cough Quetiapine Fumarate 200 mg 07/25/20 22:00 07/29/20 10:19 Seroquel PO 200 mg BID ROMMEL Administration Quetiapine Fumarate 100 mg 07/25/20 22:00 07/29/20 10:19 Seroquel PO 100 mg BID ROMMEL Administration Simple Syrup 15 ml 07/08/20 14:50 Simple Syrup FEEDTUBE PRN PRN Hypoglycemia Simple Syrup 30 ml 07/08/20 14:50 Simple Syrup FEEDTUBE PRN PRN Hypoglycemia Sodium Bicarbonate 325 mg 07/08/20 14:50 Sodium Bicarbonate FEEDTUBE PRN PRN For Clogged Feeding Tube Sodium Chloride 10 ml 07/06/20 14:00 07/29/20 10:18 Sodium Chloride Flush Syringe 10 Ml IV 10 ml BID ROMMEL Administration Sodium Chloride 10 ml 07/06/20 13:39 07/26/20 06:31 Sodium Chloride Flush Syringe 10 Ml IV 10 ml PRN PRN Administration LINE FLUSH Venlafaxine HCl 37.5 mg 07/07/20 10:00 07/29/20 10:19 Effexor PO 37.5 mg DAILY ROMMEL Administration Zinc Sulfate 220 mg 07/08/20 22:00 07/29/20 10:19 Zinc Sulfate PO 220 mg BID ROMMEL Administration Nutrition/Malnutrition Assess - Dietary Evaluation Nutrition/Malnutrition Findings: Nutrition Notes Start: 07/08/20 14:02 Freq: Status: Active Protocol: Document 07/27/20 08:58 (Rec: 07/27/20 09:54 [id number]) Nutrition Notes Need for Assessment generated from: MD Order Initial or Follow up Reassessment Current Diagnosis Hypertension,Heart Failure Other Pertinent Diagnosis Acute respiratory failure, COVID(+), GERD, Lupus Current Diet Vital AF 1.2 at 55 mL/hr (goal rate) Labs/Tests Reviewed Pertinent Medications Propofol Fentanyl Solu-medrol Zinc Sulfate Vitamin C Height 5 ft 5 in Weight 102.2 kg [place] Body Weight (kg) 56.81 BMI 37.5 Weight Status Obese Subjective/Other Information MD consult for TF. Pt receiving Vital AF 1.2 at 10ml /hr. Per RN, pt is proned and will be for 2 more days. Percent of energy/protein needs met: 17%/16% Burn Absent Trauma Absent GI Symptoms None Current % PO Negligible Minimum of two criteria No physical signs of malnutrition #1 Nutrition Diagnosis Inadequate oral intake Diagnosis Progress(for reassessment Continues documentation) Is patient on ventilator? Yes Is Patient Ambulatory and/or Out of Bed No REE-([place]-[facility] Jeor-confined to bed) 1986.828 Kcal/Kg value to use for calculation 16 Approximate Energy Requirements Using 1635 kcal/Kg Calculation Used for Recommendations Kcal/kg Additional Notes Pro: greater than 114 g (>2 g/ kg IBW) Fluid: 1ml/kcal or per MD Nutrition Intervention Change Diet Order: Continue TF Nutrition Support: Vital AF at 55 ml/hr Flush 75 ml q4h 16 hr prone: Vital AF 1.2 at 10 ml for 16hr . Flush 50 ml q4h. For remaining 8 hours, Vital AF 1.2 at 135 ml/hr. Flush 125 ml q4h. Kcal 1,584 Protein (gm) 99 Fluid (mL) 1,070 Goal #1 Meet at least 80% of protein and energy needs via TF Anticipated Discharge Needs: Cannot determine at this time Follow-Up By: 08/01/20 Additional Comments Follow for TF tolerance
[2020-07-29 10:48] LABS: Anisocytosis 1+; Band Neutrophils # (Manual) 0.1 K/mm3; Basophils % (Manual) 0 % (0.0-1.8); Total Cells Counted 100
[2020-07-29 10:49] LABS: Platelet Estimate Consistent w Auto
[2020-07-29] MEDS ORDERED: FUROSEMIDE 40 MG/4 ML INJ IV SCH (12:00)
[2020-07-29] MEDS: POLYETHYLENE GLYCOL 3350 17 GM POWDER PO SCH (12:19)
--- NOTE | 2020-07-29 15:42 | Progress Note ---
Assessment and Plan 50-year-old female with CHF, asthma, hypertension, lupus was admitted to the hospital with complaints of fever, shortness of breath. Of note, she was seen last week due to an asthma exacerbation when her SARS-CoV-2 PCR and IgG were both negative. She was treated with steroids. She reportedly then went to [place] and tested positive for COVID-19 and was discharged from the hospital on 07/05/2020 readmitted here with: Acute hypoxemic respiratory failure, now on MVS Bilateral pneumonia, left greater than right lungs. COVID-19 infection-SEVERE/CRITICAL . History of congestive heart failure. History of lupus erythematosus. Leukocytosis. Tobacco use disorder. Acute asthma exacerbation. History of hypertension. Obesity Remains critically ill, on going intermittent desaturations. Proning per facility protocol for next 5 days- day 3- Monitor renal function and hemodynamics closely. Conservative fluid management. [place] catheter while being proned Vasopressor support as indicated Daily ABG, PA/FIO2 ratio Wean FiO2 for O2 sats>92% -Continue Seroquel at 300mg BID while monitoring for arrhythmias and QTc - continue airborne and contact isolation per facility protocol -Continue to monitor off antibiotics - continue systemic steroids for Asthma / severe COVID infection - continue Daily assessment for readiness to wean. Ventilatory demands are too high at this time - VAP bundle addressed, aspiration precautions, HOB >40 - continue lung protective strategies - accuchecks with glycemic control per SSI (While critically ill target blood glucose of 140-180 mg/dL; avoid hypoglycemia) - sedation for target RASS -1 to -2 - avoid nephrotoxins, renally dose all medications - prn analgesia per CPOT score - Maintenance of sleep-wake cycle, avoid delirium - G.I. & VTE prophylaxis( Famotidine and Enoxaparin) - PT/OT/ROM exercises - continue mobility protocols for pressure ulcer prevention as tolerated - continue other care per attending / other consultants - discharge planning ongoing concurrently COVID SPECIFIC INTERVENTIONS -On steroids -Prophylactic anticoagulation based on d-dimer -s/p Remdesivir -s/p Convalescent plasma, was IgG negative -Zinc & Vit C supplementation -Contact and airborne isolation per facility protocols CONDITION: CRITICAL PROGNOSIS: GUARDED CODE STATUS: FULL CODE The high probability of a clinically significant, sudden or life-threatening deterioration of the [respiratory, cardiovascular & neurologic] system(s) required my full and direct attention, intervention and personal management. The aggregate critical care time was [35] minutes without overlap. Time includes spent on; [x] Data Review and interpretation [x] Patient assessment and monitoring of vital signs [x] Documentation [x] Medication orders and management Subjective Date of service: 07/29/20 Principal diagnosis: Ac hypoxemic resp failure; PNA; COVID-19 infxn; SLE; Asthma exacerbation Interval history: Patient is seen today for: Acute hypoxemic respiratory failure; Bilateral pneumonia; COVID-19 infection; H/O CHF; SLE; Acute asthma exacerbation. HTN; Obesity Seen and examined at bedside; 24hour events reviewed; nursing and respiratory care staff consulted; no adverse overnight events reported to me; resting peace fully in bed; remains on MVS Midazolam, Fentanyl and Propofol. She is sedated, supine No dys-synchrony at this time. No N/V/F/C Objective Vital Signs - 12hr 07/29/20 07/29/20 07/29/20 04:00 04:30 05:00 Temperature 97.1 F L Pulse Rate 85 85 82 Pulse Rate [ Bilateral Throughout] Pulse Rate [ 85 From Monitor] Respiratory 15 9 L 14 Rate Respiratory Rate [Bilateral Throughout] Blood Pressure 94/60 104/63 108/58 O2 Sat by Pulse 95 96 97 Oximetry 07/29/20 07/29/20 07/29/20 05:30 06:00 06:30 Temperature Pulse Rate 82 82 82 Pulse Rate [ Bilateral Throughout] Pulse Rate [ From Monitor] Respiratory 15 9 L 16 Rate Respiratory Rate [Bilateral Throughout] Blood Pressure 93/63 103/58 92/58 O2 Sat by Pulse 96 94 94 Oximetry 07/29/20 07/29/20 07/29/20 07:00 07:30 08:00 Temperature Pulse Rate 76 80 87 Pulse Rate [ Bilateral Throughout] Pulse Rate [ From Monitor] Respiratory 18 20 25 H Rate Respiratory Rate [Bilateral Throughout] Blood Pressure 103/58 104/50 118/55 O2 Sat by Pulse 95 96 95 Oximetry 07/29/20 07/29/20 07/29/20 08:30 08:56 09:00 Temperature Pulse Rate 90 91 H 93 H Pulse Rate [ 94 H Bilateral Throughout] Pulse Rate [ From Monitor] Respiratory 24 22 Rate Respiratory 20 Rate [Bilateral Throughout] Blood Pressure 116/52 119/62 119/62 O2 Sat by Pulse 97 95 95 Oximetry 1107/29/20 07/29/20 09:30 10:00 10:30 Temperature Pulse Rate 91 H 88 95 H Pulse Rate [ Bilateral Throughout] Pulse Rate [ From Monitor] Respiratory 20 22 26 H Rate Respiratory Rate [Bilateral Throughout] Blood Pressure 120/64 115/55 115/55 O2 Sat by Pulse 95 92 92 Oximetry 07/29/20 07/29/20 07/29/20 11:00 11:30 12:00 Temperature Pulse Rate 88 115 H 97 H Pulse Rate [ Bilateral Throughout] Pulse Rate [ From Monitor] Respiratory 21 26 H 22 Rate Respiratory Rate [Bilateral Throughout] Blood Pressure 115/57 125/60 116/59 O2 Sat by Pulse 92 93 93 Oximetry 07/29/20 07/29/20 07/29/20 12:30 12:35 13:00 Temperature Pulse Rate 97 H 97 H 93 H Pulse Rate [ Bilateral Throughout] Pulse Rate [ From Monitor] Respiratory 19 23 Rate Respiratory Rate [Bilateral Throughout] Blood Pressure 118/60 112/61 120/57 O2 Sat by Pulse 93 94 92 Oximetry 07/29/20 07/29/20 07/29/20 13:25 13:30 14:00 Temperature Pulse Rate 96 H 98 H Pulse Rate [ 100 H Bilateral Throughout] Pulse Rate [ From Monitor] Respiratory 21 21 Rate Respiratory 22 Rate [Bilateral Throughout] Blood Pressure 112/61 112/65 O2 Sat by Pulse 94 95 Oximetry 07/29/20 14:30 Temperature Pulse Rate 95 H Pulse Rate [ Bilateral Throughout] Pulse Rate [ From Monitor] Respiratory 26 H Rate Respiratory Rate [Bilateral Throughout] Blood Pressure 106/60 O2 Sat by Pulse 94 Oximetry Constitutional: appears uncomfortable, other (middle aged obese female with mildly increased respiratory effort at rest on MVS) Eyes: non-icteric ENT: oropharynx moist, other (ETT 23cm YANET) Neck: supple, no lymphadenopathy, no JVD Effort: mildly labored Ascultation: Bilateral: diminished breath sounds, rhonchi (scant ), other (+ mild accesory muscle use) Percussion: Bilateral: not dull Cardiovascular: regular rate and rhythm, other (S1,S2) Gastrointestinal: normoactive bowel sounds, soft, non-tender, non-distended Integumentary: normal Extremities: no cyanosis, no edema, pulses normal, no ischemia or petechiae Neurologic: pupils equal and round, other (sedated) Psychiatric: anxious CBC and BMP: 07/29/20 07:54 07/29/20 07:54 ABG, PT/INR, D-dimer: ABG ABG pH 7.378 (7.320-7.450) 07/29/20 03:18 POC ABG pCO2 69.5 mmHg (32.0-48.0) H 07/29/20 03:18 ABG pCO2 81.7 mm Hg 07/28/20 04:15 POC ABG pO2 109.3 mmHg (83-108) H 07/29/20 03:18 ABG pO2 130.3 mm Hg (80.0-90.0) H 07/28/20 04:15 POC ABG HCO3 40 07/29/20 03:18 ABG O2 Saturation 98.1 % (95.0-99.0) 07/28/20 04:15 PT/INR, D-dimer D-Dimer 826.36 ng/mlDDU (0-234) H 07/13/20 07:20 Abnormal lab findings: Abnormal Labs 07/06/20 07/06/20 07/07/20 05:24 17:16 04:50 WBC 13.5 H 12.7 H RBC Hgb Hct MCH MCHC Plt Count Lymph % (Auto) Lymph # (Auto) Seg Neutrophils % Seg Neuts % (Manual) 86.0 H 87.0 H Lymphocytes % (Manual) 6.0 L 9.0 L Eosinophils % (Manual) Seg Neutrophils # Seg Neutrophils # Man 11.6 H 11.0 H Lymphocytes # (Manual) 0.8 L 1.1 L Eosinophils # (Manual) D-Dimer ABG pH POC ABG pCO2 POC ABG pO2 ABG pO2 ABG HCO3 ABG O2 Saturation ABG Base Excess ABG Hemoglobin ABG Oxyhemoglobin ABG Sodium ABG Potassium ABG Chloride ABG Glucose Oxyhemoglobin Sodium Chloride Carbon Dioxide BUN Creatinine Glucose POC Glucose Calcium Ferritin Lactate Dehydrogenase 242 H C-Reactive Protein 7.30 H Total Protein Albumin Arterial Blood Glucose Arterial Blood Ionized Calcium Coronavirus (PCR) SARS-CoV-2 IgG Ab 07/07/20 07/07/20 07/07/20 04:50 14:22 14:22 WBC RBC Hgb Hct MCH MCHC Plt Count Lymph % (Auto) Lymph # (Auto) Seg Neutrophils % Seg Neuts % (Manual) Lymphocytes % (Manual) Eosinophils % (Manual) Seg Neutrophils # Seg Neutrophils # Man Lymphocytes # (Manual) Eosinophils # (Manual) D-Dimer ABG pH POC ABG pCO2 POC ABG pO2 ABG pO2 ABG HCO3 ABG O2 Saturation ABG Base Excess ABG Hemoglobin ABG Oxyhemoglobin ABG Sodium ABG Potassium ABG Chloride ABG Glucose Oxyhemoglobin Sodium Chloride Carbon Dioxide BUN 18 H Creatinine Glucose 138 H POC Glucose Calcium Ferritin 228.2 H Lactate Dehydrogenase 277 H C-Reactive Protein Total Protein 5.9 L Albumin 3.4 L Arterial Blood Glucose Arterial Blood Ionized Calcium Coronavirus (PCR) SARS-CoV-2 IgG Ab 07/08/20 07/08/20 07/08/20 11:18 12:57 16:13 WBC RBC Hgb Hct MCH MCHC Plt Count Lymph % (Auto) Lymph # (Auto) Seg Neutrophils % Seg Neuts % (Manual) Lymphocytes % (Manual) Eosinophils % (Manual) Seg Neutrophils # Seg Neutrophils # Man Lymphocytes # (Manual) Eosinophils # (Manual) D-Dimer ABG pH POC ABG pCO2 POC ABG pO2 ABG pO2 39.3 L* ABG HCO3 ABG O2 Saturation 76.8 L ABG Base Excess ABG Hemoglobin ABG Oxyhemoglobin ABG Sodium ABG Potassium ABG Chloride ABG Glucose Oxyhemoglobin 75.3 L Sodium Chloride Carbon Dioxide 20 L D BUN Creatinine Glucose 135 H POC Glucose 106 H Calcium 8.0 L Ferritin Lactate Dehydrogenase C-Reactive Protein Total Protein Albumin Arterial Blood Glucose Arterial Blood Ionized Calcium Coronavirus (PCR) SARS-CoV-2 IgG Ab 07/08/20 07/08/20 07/09/20 17:04 18:45 04:00 WBC 15.6 H RBC Hgb Hct MCH MCHC Plt Count Lymph % (Auto) 4.7 L Lymph # (Auto) 0.7 L Seg Neutrophils % Seg Neuts % (Manual) Lymphocytes % (Manual) Eosinophils % (Manual) Seg Neutrophils # 14.2 H Seg Neutrophils # Man Lymphocytes # (Manual) Eosinophils # (Manual) D-Dimer ABG pH POC ABG pCO2 POC ABG pO2 ABG pO2 181.8 H ABG HCO3 ABG O2 Saturation 99.1 H ABG Base Excess ABG Hemoglobin 11.4 L ABG Oxyhemoglobin ABG Sodium ABG Potassium ABG Chloride ABG Glucose Oxyhemoglobin Sodium Chloride Carbon Dioxide BUN Creatinine Glucose POC Glucose 117 H Calcium Ferritin Lactate Dehydrogenase C-Reactive Protein Total Protein Albumin Arterial Blood Glucose Arterial Blood Ionized Calcium Coronavirus (PCR) SARS-CoV-2 IgG Ab 07/09/20 07/09/20 07/09/20 04:00 04:00 04:49 WBC RBC Hgb Hct MCH MCHC Plt Count Lymph % (Auto) Lymph # (Auto) Seg Neutrophils % Seg Neuts % (Manual) Lymphocytes % (Manual) Eosinophils % (Manual) Seg Neutrophils # Seg Neutrophils # Man Lymphocytes # (Manual) Eosinophils # (Manual) D-Dimer ABG pH POC ABG pCO2 POC ABG pO2 ABG pO2 ABG HCO3 26.2 H ABG O2 Saturation ABG Base Excess ABG Hemoglobin 11.2 L ABG Oxyhemoglobin ABG Sodium ABG Potassium ABG Chloride ABG Glucose Oxyhemoglobin 94.9 L Sodium Chloride Carbon Dioxide BUN Creatinine Glucose 158 H POC Glucose Calcium 8.2 L Ferritin 320.0 H Lactate Dehydrogenase 391 H C-Reactive Protein 9.50 H Total Protein 5.9 L Albumin 3.2 L Arterial Blood Glucose Arterial Blood Ionized Calcium Coronavirus (PCR) SARS-CoV-2 IgG Ab 07/09/20 07/09/20 07/09/20 11:56 17:49 23:39 WBC RBC Hgb Hct MCH MCHC Plt Count Lymph % (Auto) Lymph # (Auto) Seg Neutrophils % Seg Neuts % (Manual) Lymphocytes % (Manual) Eosinophils % (Manual) Seg Neutrophils # Seg Neutrophils # Man Lymphocytes # (Manual) Eosinophils # (Manual) D-Dimer ABG pH POC ABG pCO2 POC ABG pO2 ABG pO2 ABG HCO3 ABG O2 Saturation ABG Base Excess ABG Hemoglobin ABG Oxyhemoglobin ABG Sodium ABG Potassium ABG Chloride ABG Glucose Oxyhemoglobin Sodium Chloride Carbon Dioxide BUN Creatinine Glucose POC Glucose 156 H 119 H 145 H Calcium Ferritin Lactate Dehydrogenase C-Reactive Protein Total Protein Albumin Arterial Blood Glucose Arterial Blood Ionized Calcium Coronavirus (PCR) SARS-CoV-2 IgG Ab 07/10/20 07/10/20 07/10/20 03:32 05:26 11:22 WBC RBC Hgb Hct MCH MCHC Plt Count Lymph % (Auto) Lymph # (Auto) Seg Neutrophils % Seg Neuts % (Manual) Lymphocytes % (Manual) Eosinophils % (Manual) Seg Neutrophils # Seg Neutrophils # Man Lymphocytes # (Manual) Eosinophils # (Manual) D-Dimer ABG pH POC ABG pCO2 POC ABG pO2 ABG pO2 75.7 L ABG HCO3 27.5 H ABG O2 Saturation ABG Base Excess ABG Hemoglobin 9.3 L ABG Oxyhemoglobin ABG Sodium ABG Potassium ABG Chloride ABG Glucose Oxyhemoglobin 94.7 L Sodium Chloride Carbon Dioxide BUN Creatinine Glucose POC Glucose 156 H 148 H Calcium Ferritin Lactate Dehydrogenase C-Reactive Protein Total Protein Albumin Arterial Blood Glucose Arterial Blood Ionized Calcium Coronavirus (PCR) SARS-CoV-2 IgG Ab 07/10/20 07/10/20 07/10/20 12:10 12:10 18:20 WBC 14.1 H RBC 3.33 L Hgb 9.9 L Hct MCH MCHC Plt Count Lymph % (Auto) Lymph # (Auto) Seg Neutrophils % Seg Neuts % (Manual) 89.0 H Lymphocytes % (Manual) 8.0 L Eosinophils % (Manual) Seg Neutrophils # Seg Neutrophils # Man 12.5 H Lymphocytes # (Manual) 1.1 L Eosinophils # (Manual) D-Dimer ABG pH POC ABG pCO2 POC ABG pO2 ABG pO2 ABG HCO3 ABG O2 Saturation ABG Base Excess ABG Hemoglobin ABG Oxyhemoglobin ABG Sodium ABG Potassium ABG Chloride ABG Glucose Oxyhemoglobin Sodium Chloride Carbon Dioxide BUN 21 H Creatinine Glucose 154 H POC Glucose 181 H Calcium 8.0 L Ferritin Lactate Dehydrogenase C-Reactive Protein Total Protein 5.4 L Albumin 3.0 L Arterial Blood Glucose Arterial Blood Ionized Calcium Coronavirus (PCR) SARS-CoV-2 IgG Ab 07/10/20 07/11/20 07/11/20 23:51 04:05 05:43 WBC RBC Hgb Hct MCH MCHC Plt Count Lymph % (Auto) Lymph # (Auto) Seg Neutrophils % Seg Neuts % (Manual) Lymphocytes % (Manual) Eosinophils % (Manual) Seg Neutrophils # Seg Neutrophils # Man Lymphocytes # (Manual) Eosinophils # (Manual) D-Dimer ABG pH 7.348 L POC ABG pCO2 POC ABG pO2 ABG pO2 93.6 H ABG HCO3 28.5 H ABG O2 Saturation ABG Base Excess ABG Hemoglobin 10.1 L ABG Oxyhemoglobin ABG Sodium ABG Potassium ABG Chloride ABG Glucose Oxyhemoglobin Sodium Chloride Carbon Dioxide BUN Creatinine Glucose POC Glucose 116 H 132 H Calcium Ferritin Lactate Dehydrogenase C-Reactive Protein Total Protein Albumin Arterial Blood Glucose Arterial Blood Ionized Calcium Coronavirus (PCR) SARS-CoV-2 IgG Ab 07/11/20 07/11/20 07/11/20 09:11 09:11 09:11 WBC 15.8 H RBC 3.44 L Hgb Hct MCH MCHC Plt Count Lymph % (Auto) Lymph # (Auto) Seg Neutrophils % Seg Neuts % (Manual) 92.0 H Lymphocytes % (Manual) 4.0 L Eosinophils % (Manual) Seg Neutrophils # Seg Neutrophils # Man 14.5 H Lymphocytes # (Manual) 0.6 L Eosinophils # (Manual) D-Dimer 360.61 H ABG pH POC ABG pCO2 POC ABG pO2 ABG pO2 ABG HCO3 ABG O2 Saturation ABG Base Excess ABG Hemoglobin ABG Oxyhemoglobin ABG Sodium ABG Potassium ABG Chloride ABG Glucose Oxyhemoglobin Sodium Chloride 107.1 H Carbon Dioxide BUN 22 H Creatinine Glucose 149 H POC Glucose Calcium 7.8 L Ferritin Lactate Dehydrogenase 483 H C-Reactive Protein 2.30 H Total Protein 4.9 L Albumin 3.0 L Arterial Blood Glucose Arterial Blood Ionized Calcium Coronavirus (PCR) SARS-CoV-2 IgG Ab 07/11/20 07/11/20 07/11/20 09:11 12:16 17:55 WBC RBC Hgb Hct MCH MCHC Plt Count Lymph % (Auto) Lymph # (Auto) Seg Neutrophils % Seg Neuts % (Manual) Lymphocytes % (Manual) Eosinophils % (Manual) Seg Neutrophils # Seg Neutrophils # Man Lymphocytes # (Manual) Eosinophils # (Manual) D-Dimer ABG pH POC ABG pCO2 POC ABG pO2 ABG pO2 ABG HCO3 ABG O2 Saturation ABG Base Excess ABG Hemoglobin ABG Oxyhemoglobin ABG Sodium ABG Potassium ABG Chloride ABG Glucose Oxyhemoglobin Sodium Chloride Carbon Dioxide BUN Creatinine Glucose POC Glucose 157 H 166 H Calcium Ferritin 371.2 H Lactate Dehydrogenase C-Reactive Protein Total Protein Albumin Arterial Blood Glucose Arterial Blood Ionized Calcium Coronavirus (PCR) SARS-CoV-2 IgG Ab 07/12/20 07/12/20 07/12/20 00:32 04:00 04:00 WBC RBC 3.52 L Hgb Hct MCH MCHC Plt Count Lymph % (Auto) Lymph # (Auto) Seg Neutrophils % Seg Neuts % (Manual) 90.0 H Lymphocytes % (Manual) 4.0 L Eosinophils % (Manual) Seg Neutrophils # Seg Neutrophils # Man 9.5 H Lymphocytes # (Manual) 0.4 L Eosinophils # (Manual) D-Dimer ABG pH POC ABG pCO2 POC ABG pO2 ABG pO2 ABG HCO3 ABG O2 Saturation ABG Base Excess ABG Hemoglobin ABG Oxyhemoglobin ABG Sodium ABG Potassium ABG Chloride ABG Glucose Oxyhemoglobin Sodium Chloride Carbon Dioxide 31 H BUN 21 H Creatinine Glucose 175 H POC Glucose 178 H Calcium 8.0 L Ferritin Lactate Dehydrogenase C-Reactive Protein Total Protein 5.4 L Albumin 3.0 L Arterial Blood Glucose Arterial Blood Ionized Calcium Coronavirus (PCR) SARS-CoV-2 IgG Ab 07/12/20 07/12/20 07/12/20 04:01 05:47 12:09 WBC RBC Hgb Hct MCH MCHC Plt Count Lymph % (Auto) Lymph # (Auto) Seg Neutrophils % Seg Neuts % (Manual) Lymphocytes % (Manual) Eosinophils % (Manual) Seg Neutrophils # Seg Neutrophils # Man Lymphocytes # (Manual) Eosinophils # (Manual) D-Dimer ABG pH 7.456 H POC ABG pCO2 POC ABG pO2 ABG pO2 ABG HCO3 ABG O2 Saturation ABG Base Excess ABG Hemoglobin 10.6 L ABG Oxyhemoglobin ABG Sodium ABG Potassium ABG Chloride ABG Glucose 177 H Oxyhemoglobin Sodium Chloride Carbon Dioxide BUN Creatinine Glucose POC Glucose 185 H 227 H Calcium Ferritin Lactate Dehydrogenase C-Reactive Protein Total Protein Albumin Arterial Blood Glucose 177 H Arterial Blood Ionized Calcium 4.5 L Coronavirus (PCR) SARS-CoV-2 IgG Ab 07/12/20 07/12/20 07/13/20 17:34 23:57 05:06 WBC RBC Hgb Hct MCH MCHC Plt Count Lymph % (Auto) Lymph # (Auto) Seg Neutrophils % Seg Neuts % (Manual) Lymphocytes % (Manual) Eosinophils % (Manual) Seg Neutrophils # Seg Neutrophils # Man Lymphocytes # (Manual) Eosinophils # (Manual) D-Dimer ABG pH POC ABG pCO2 POC ABG pO2 ABG pO2 ABG HCO3 ABG O2 Saturation ABG Base Excess ABG Hemoglobin ABG Oxyhemoglobin ABG Sodium ABG Potassium ABG Chloride ABG Glucose Oxyhemoglobin Sodium Chloride Carbon Dioxide BUN Creatinine Glucose POC Glucose 202 H 163 H 166 H Calcium Ferritin Lactate Dehydrogenase C-Reactive Protein Total Protein Albumin Arterial Blood Glucose Arterial Blood Ionized Calcium Coronavirus (PCR) SARS-CoV-2 IgG Ab 07/13/20 07/13/20 07/13/20 07:20 07:20 07:20 WBC 20.5 H RBC Hgb Hct MCH MCHC Plt Count Lymph % (Auto) Lymph # (Auto) Seg Neutrophils % Seg Neuts % (Manual) 93.0 H Lymphocytes % (Manual) 3.0 L Eosinophils % (Manual) Seg Neutrophils # Seg Neutrophils # Man 19.1 H Lymphocytes # (Manual) 0.6 L Eosinophils # (Manual) D-Dimer 826.36 H ABG pH POC ABG pCO2 POC ABG pO2 ABG pO2 ABG HCO3 ABG O2 Saturation ABG Base Excess ABG Hemoglobin ABG Oxyhemoglobin ABG Sodium ABG Potassium ABG Chloride ABG Glucose Oxyhemoglobin Sodium Chloride Carbon Dioxide 31 H BUN 25 H Creatinine Glucose 163 H POC Glucose Calcium 8.1 L Ferritin Lactate Dehydrogenase 512 H C-Reactive Protein 1.80 H Total Protein 5.8 L Albumin 3.2 L Arterial Blood Glucose Arterial Blood Ionized Calcium Coronavirus (PCR) SARS-CoV-2 IgG Ab 07/13/20 07/13/20 07/13/20 07:20 11:37 17:20 WBC RBC Hgb Hct MCH MCHC Plt Count Lymph % (Auto) Lymph # (Auto) Seg Neutrophils % Seg Neuts % (Manual) Lymphocytes % (Manual) Eosinophils % (Manual) Seg Neutrophils # Seg Neutrophils # Man Lymphocytes # (Manual) Eosinophils # (Manual) D-Dimer ABG pH POC ABG pCO2 POC ABG pO2 ABG pO2 ABG HCO3 ABG O2 Saturation ABG Base Excess ABG Hemoglobin ABG Oxyhemoglobin ABG Sodium ABG Potassium ABG Chloride ABG Glucose Oxyhemoglobin Sodium Chloride Carbon Dioxide BUN Creatinine Glucose POC Glucose 232 H 210 H Calcium Ferritin 219.8 H Lactate Dehydrogenase C-Reactive Protein Total Protein Albumin Arterial Blood Glucose Arterial Blood Ionized Calcium Coronavirus (PCR) SARS-CoV-2 IgG Ab 07/13/20 07/13/20 07/14/20 23:57 Unknown 05:22 WBC RBC Hgb Hct MCH MCHC Plt Count Lymph % (Auto) Lymph # (Auto) Seg Neutrophils % Seg Neuts % (Manual) Lymphocytes % (Manual) Eosinophils % (Manual) Seg Neutrophils # Seg Neutrophils # Man Lymphocytes # (Manual) Eosinophils # (Manual) D-Dimer ABG pH 7.341 L POC ABG pCO2 POC ABG pO2 133.0 H ABG pO2 56.5 L ABG HCO3 29.7 H ABG O2 Saturation 89.3 L ABG Base Excess ABG Hemoglobin 11.0 L ABG Oxyhemoglobin ABG Sodium ABG Potassium ABG Chloride ABG Glucose 207 H Oxyhemoglobin 87.7 L Sodium Chloride Carbon Dioxide BUN Creatinine Glucose POC Glucose 190 H Calcium Ferritin Lactate Dehydrogenase C-Reactive Protein Total Protein Albumin Arterial Blood Glucose 207 H Arterial Blood Ionized Calcium 4.5 L Coronavirus (PCR) SARS-CoV-2 IgG Ab 07/14/20 07/14/20 07/14/20 05:54 11:16 17:50 WBC RBC Hgb Hct MCH MCHC Plt Count Lymph % (Auto) Lymph # (Auto) Seg Neutrophils % Seg Neuts % (Manual) Lymphocytes % (Manual) Eosinophils % (Manual) Seg Neutrophils # Seg Neutrophils # Man Lymphocytes # (Manual) Eosinophils # (Manual) D-Dimer ABG pH POC ABG pCO2 POC ABG pO2 ABG pO2 ABG HCO3 ABG O2 Saturation ABG Base Excess ABG Hemoglobin ABG Oxyhemoglobin ABG Sodium ABG Potassium ABG Chloride ABG Glucose Oxyhemoglobin Sodium Chloride Carbon Dioxide BUN Creatinine Glucose POC Glucose 206 H 196 H 205 H Calcium Ferritin Lactate Dehydrogenase C-Reactive Protein Total Protein Albumin Arterial Blood Glucose Arterial Blood Ionized Calcium Coronavirus (PCR) SARS-CoV-2 IgG Ab 07/14/20 07/15/20 07/15/20 23:28 03:16 06:12 WBC RBC Hgb Hct MCH MCHC Plt Count Lymph % (Auto) Lymph # (Auto) Seg Neutrophils % Seg Neuts % (Manual) Lymphocytes % (Manual) Eosinophils % (Manual) Seg Neutrophils # Seg Neutrophils # Man Lymphocytes # (Manual) Eosinophils # (Manual) D-Dimer ABG pH POC ABG pCO2 49.2 H POC ABG pO2 120.3 H ABG pO2 ABG HCO3 ABG O2 Saturation ABG Base Excess ABG Hemoglobin 9.5 L ABG Oxyhemoglobin ABG Sodium ABG Potassium ABG Chloride ABG Glucose 148 H Oxyhemoglobin Sodium Chloride Carbon Dioxide BUN Creatinine Glucose POC Glucose 160 H 178 H Calcium Ferritin Lactate Dehydrogenase C-Reactive Protein Total Protein Albumin Arterial Blood Glucose 148 H Arterial Blood Ionized Calcium Coronavirus (PCR) SARS-CoV-2 IgG Ab 07/15/20 07/15/20 07/15/20 09:00 12:32 14:30 WBC RBC Hgb Hct MCH MCHC Plt Count Lymph % (Auto) Lymph # (Auto) Seg Neutrophils % Seg Neuts % (Manual) Lymphocytes % (Manual) Eosinophils % (Manual) Seg Neutrophils # Seg Neutrophils # Man Lymphocytes # (Manual) Eosinophils # (Manual) D-Dimer ABG pH POC ABG pCO2 POC ABG pO2 ABG pO2 ABG HCO3 ABG O2 Saturation ABG Base Excess ABG Hemoglobin ABG Oxyhemoglobin ABG Sodium ABG Potassium ABG Chloride ABG Glucose Oxyhemoglobin Sodium Chloride Carbon Dioxide BUN Creatinine Glucose POC Glucose 173 H Calcium Ferritin Lactate Dehydrogenase 531 H C-Reactive Protein Total Protein Albumin Arterial Blood Glucose Arterial Blood Ionized Calcium Coronavirus (PCR) SARS-CoV-2 IgG Ab Reactive A 07/15/20 07/15/20 07/16/20 18:24 23:35 04:03 WBC RBC Hgb Hct MCH MCHC Plt Count Lymph % (Auto) Lymph # (Auto) Seg Neutrophils % Seg Neuts % (Manual) Lymphocytes % (Manual) Eosinophils % (Manual) Seg Neutrophils # Seg Neutrophils # Man Lymphocytes # (Manual) Eosinophils # (Manual) D-Dimer ABG pH POC ABG pCO2 POC ABG pO2 ABG pO2 72.7 L ABG HCO3 35.5 H ABG O2 Saturation ABG Base Excess 9.4 H ABG Hemoglobin 10.6 L ABG Oxyhemoglobin ABG Sodium ABG Potassium ABG Chloride ABG Glucose Oxyhemoglobin 93.6 L Sodium Chloride Carbon Dioxide BUN Creatinine Glucose POC Glucose 173 H 181 H Calcium Ferritin Lactate Dehydrogenase C-Reactive Protein Total Protein Albumin Arterial Blood Glucose Arterial Blood Ionized Calcium Coronavirus (PCR) SARS-CoV-2 IgG Ab 07/16/20 07/16/20 07/16/20 05:35 09:00 09:00 WBC 16.5 H RBC 3.59 L Hgb Hct MCH MCHC Plt Count Lymph % (Auto) Lymph # (Auto) Seg Neutrophils % Seg Neuts % (Manual) 96.0 H Lymphocytes % (Manual) 3.0 L Eosinophils % (Manual) Seg Neutrophils # Seg Neutrophils # Man 15.8 H Lymphocytes # (Manual) 0.5 L Eosinophils # (Manual) D-Dimer ABG pH POC ABG pCO2 POC ABG pO2 ABG pO2 ABG HCO3 ABG O2 Saturation ABG Base Excess ABG Hemoglobin ABG Oxyhemoglobin ABG Sodium ABG Potassium ABG Chloride ABG Glucose Oxyhemoglobin Sodium Chloride Carbon Dioxide 39 H D BUN 25 H Creatinine 0.4 L Glucose 167 H POC Glucose 129 H Calcium 8.3 L Ferritin Lactate Dehydrogenase C-Reactive Protein Total Protein Albumin Arterial Blood Glucose Arterial Blood Ionized Calcium Coronavirus (PCR) SARS-CoV-2 IgG Ab 07/16/20 07/16/20 07/17/20 12:32 18:28 00:09 WBC RBC Hgb Hct MCH MCHC Plt Count Lymph % (Auto) Lymph # (Auto) Seg Neutrophils % Seg Neuts % (Manual) Lymphocytes % (Manual) Eosinophils % (Manual) Seg Neutrophils # Seg Neutrophils # Man Lymphocytes # (Manual) Eosinophils # (Manual) D-Dimer ABG pH POC ABG pCO2 POC ABG pO2 ABG pO2 ABG HCO3 ABG O2 Saturation ABG Base Excess ABG Hemoglobin ABG Oxyhemoglobin ABG Sodium ABG Potassium ABG Chloride ABG Glucose Oxyhemoglobin Sodium Chloride Carbon Dioxide BUN Creatinine Glucose POC Glucose 187 H 174 H 184 H Calcium Ferritin Lactate Dehydrogenase C-Reactive Protein Total Protein Albumin Arterial Blood Glucose Arterial Blood Ionized Calcium Coronavirus (PCR) SARS-CoV-2 IgG Ab 07/17/20 07/17/20 07/17/20 04:30 05:47 13:03 WBC RBC Hgb Hct MCH MCHC Plt Count Lymph % (Auto) Lymph # (Auto) Seg Neutrophils % Seg Neuts % (Manual) Lymphocytes % (Manual) Eosinophils % (Manual) Seg Neutrophils # Seg Neutrophils # Man Lymphocytes # (Manual) Eosinophils # (Manual) D-Dimer ABG pH POC ABG pCO2 POC ABG pO2 ABG pO2 ABG HCO3 38.1 H ABG O2 Saturation ABG Base Excess 11.3 H ABG Hemoglobin 10.5 L ABG Oxyhemoglobin ABG Sodium ABG Potassium ABG Chloride ABG Glucose Oxyhemoglobin Sodium Chloride Carbon Dioxide BUN Creatinine Glucose POC Glucose 135 H 210 H Calcium Ferritin Lactate Dehydrogenase C-Reactive Protein Total Protein Albumin Arterial Blood Glucose Arterial Blood Ionized Calcium Coronavirus (PCR) SARS-CoV-2 IgG Ab 07/17/20 07/17/20 07/18/20 16:50 23:39 04:01 WBC RBC Hgb Hct MCH MCHC Plt Count Lymph % (Auto) Lymph # (Auto) Seg Neutrophils % Seg Neuts % (Manual) Lymphocytes % (Manual) Eosinophils % (Manual) Seg Neutrophils # Seg Neutrophils # Man Lymphocytes # (Manual) Eosinophils # (Manual) D-Dimer ABG pH POC ABG pCO2 56.8 H POC ABG pO2 61.9 L ABG pO2 ABG HCO3 ABG O2 Saturation ABG Base Excess ABG Hemoglobin 11.7 L ABG Oxyhemoglobin ABG Sodium 134.2 L ABG Potassium 4.7 H ABG Chloride 97.0 L ABG Glucose 173 H Oxyhemoglobin Sodium Chloride Carbon Dioxide BUN Creatinine Glucose POC Glucose 193 H 163 H Calcium Ferritin Lactate Dehydrogenase C-Reactive Protein Total Protein Albumin Arterial Blood Glucose 173 H Arterial Blood Ionized Calcium Coronavirus (PCR) SARS-CoV-2 IgG Ab 07/18/20 07/18/20 07/18/20 05:41 12:03 17:26 WBC RBC Hgb Hct MCH MCHC Plt Count Lymph % (Auto) Lymph # (Auto) Seg Neutrophils % Seg Neuts % (Manual) Lymphocytes % (Manual) Eosinophils % (Manual) Seg Neutrophils # Seg Neutrophils # Man Lymphocytes # (Manual) Eosinophils # (Manual) D-Dimer ABG pH POC ABG pCO2 POC ABG pO2 ABG pO2 ABG HCO3 ABG O2 Saturation ABG Base Excess ABG Hemoglobin ABG Oxyhemoglobin ABG Sodium ABG Potassium ABG Chloride ABG Glucose Oxyhemoglobin Sodium Chloride Carbon Dioxide BUN Creatinine Glucose POC Glucose 153 H 177 H 160 H Calcium Ferritin Lactate Dehydrogenase C-Reactive Protein Total Protein Albumin Arterial Blood Glucose Arterial Blood Ionized Calcium Coronavirus (PCR) SARS-CoV-2 IgG Ab 07/18/20 07/19/20 07/19/20 23:58 04:15 05:05 WBC RBC Hgb Hct MCH MCHC Plt Count Lymph % (Auto) Lymph # (Auto) Seg Neutrophils % Seg Neuts % (Manual) Lymphocytes % (Manual) Eosinophils % (Manual) Seg Neutrophils # Seg Neutrophils # Man Lymphocytes # (Manual) Eosinophils # (Manual) D-Dimer ABG pH 7.465 H POC ABG pCO2 49.1 H POC ABG pO2 49.4 L ABG pO2 ABG HCO3 ABG O2 Saturation ABG Base Excess ABG Hemoglobin 11.6 L ABG Oxyhemoglobin ABG Sodium 132.3 L ABG Potassium ABG Chloride 97.0 L ABG Glucose 148 H Oxyhemoglobin Sodium Chloride Carbon Dioxide BUN Creatinine Glucose POC Glucose 144 H 117 H Calcium Ferritin Lactate Dehydrogenase C-Reactive Protein Total Protein Albumin Arterial Blood Glucose 148 H Arterial Blood Ionized Calcium Coronavirus (PCR) SARS-CoV-2 IgG Ab 07/19/20 07/19/20 07/19/20 08:30 08:30 13:21 WBC 17.2 H RBC 3.59 L Hgb Hct MCH MCHC Plt Count Lymph % (Auto) Lymph # (Auto) Seg Neutrophils % Seg Neuts % (Manual) Lymphocytes % (Manual) Eosinophils % (Manual) Seg Neutrophils # Seg Neutrophils # Man Lymphocytes # (Manual) Eosinophils # (Manual) D-Dimer ABG pH POC ABG pCO2 POC ABG pO2 ABG pO2 ABG HCO3 ABG O2 Saturation ABG Base Excess ABG Hemoglobin ABG Oxyhemoglobin ABG Sodium ABG Potassium ABG Chloride ABG Glucose Oxyhemoglobin Sodium Chloride 95.7 L Carbon Dioxide 37 H BUN 20 H Creatinine 0.4 L Glucose 125 H POC Glucose 137 H Calcium 8.1 L Ferritin Lactate Dehydrogenase C-Reactive Protein Total Protein Albumin Arterial Blood Glucose Arterial Blood Ionized Calcium Coronavirus (PCR) SARS-CoV-2 IgG Ab 07/19/20 07/19/20 07/20/20 16:29 17:28 00:25 WBC RBC Hgb Hct MCH MCHC Plt Count Lymph % (Auto) Lymph # (Auto) Seg Neutrophils % Seg Neuts % (Manual) Lymphocytes % (Manual) Eosinophils % (Manual) Seg Neutrophils # Seg Neutrophils # Man Lymphocytes # (Manual) Eosinophils # (Manual) D-Dimer ABG pH POC ABG pCO2 53.4 H POC ABG pO2 71.0 L ABG pO2 ABG HCO3 ABG O2 Saturation ABG Base Excess ABG Hemoglobin 11.2 L ABG Oxyhemoglobin 93.6 L ABG Sodium 130.9 L ABG Potassium ABG Chloride 95.0 L ABG Glucose 188 H Oxyhemoglobin Sodium Chloride Carbon Dioxide BUN Creatinine Glucose POC Glucose 174 H 188 H Calcium Ferritin Lactate Dehydrogenase C-Reactive Protein Total Protein Albumin Arterial Blood Glucose 188 H Arterial Blood Ionized Calcium 4.4 L Coronavirus (PCR) SARS-CoV-2 IgG Ab 07/20/20 07/20/20 07/20/20 04:14 05:23 12:12 WBC RBC Hgb Hct MCH MCHC Plt Count Lymph % (Auto) Lymph # (Auto) Seg Neutrophils % Seg Neuts % (Manual) Lymphocytes % (Manual) Eosinophils % (Manual) Seg Neutrophils # Seg Neutrophils # Man Lymphocytes # (Manual) Eosinophils # (Manual) D-Dimer ABG pH POC ABG pCO2 52.7 H POC ABG pO2 59.5 L ABG pO2 ABG HCO3 ABG O2 Saturation ABG Base Excess ABG Hemoglobin 10.6 L ABG Oxyhemoglobin ABG Sodium 134.4 L ABG Potassium ABG Chloride ABG Glucose 176 H Oxyhemoglobin Sodium Chloride Carbon Dioxide BUN Creatinine Glucose POC Glucose 212 H 190 H Calcium Ferritin Lactate Dehydrogenase C-Reactive Protein Total Protein Albumin Arterial Blood Glucose 176 H Arterial Blood Ionized Calcium 4.5 L Coronavirus (PCR) SARS-CoV-2 IgG Ab 07/20/20 07/21/20 07/21/20 16:59 00:01 04:30 WBC RBC Hgb Hct MCH MCHC Plt Count Lymph % (Auto) Lymph # (Auto) Seg Neutrophils % Seg Neuts % (Manual) Lymphocytes % (Manual) Eosinophils % (Manual) Seg Neutrophils # Seg Neutrophils # Man Lymphocytes # (Manual) Eosinophils # (Manual) D-Dimer ABG pH 7.468 H POC ABG pCO2 POC ABG pO2 63.3 L ABG pO2 ABG HCO3 ABG O2 Saturation ABG Base Excess ABG Hemoglobin 11 L ABG Oxyhemoglobin ABG Sodium 135.0 L ABG Potassium ABG Chloride ABG Glucose 204 H Oxyhemoglobin Sodium Chloride Carbon Dioxide BUN Creatinine Glucose POC Glucose 201 H 177 H Calcium Ferritin Lactate Dehydrogenase C-Reactive Protein Total Protein Albumin Arterial Blood Glucose 204 H Arterial Blood Ionized Calcium 4.5 L Coronavirus (PCR) SARS-CoV-2 IgG Ab 07/21/20 07/21/20 07/21/20 05:26 11:50 17:16 WBC RBC Hgb Hct MCH MCHC Plt Count Lymph % (Auto) Lymph # (Auto) Seg Neutrophils % Seg Neuts % (Manual) Lymphocytes % (Manual) Eosinophils % (Manual) Seg Neutrophils # Seg Neutrophils # Man Lymphocytes # (Manual) Eosinophils # (Manual) D-Dimer ABG pH POC ABG pCO2 POC ABG pO2 ABG pO2 ABG HCO3 ABG O2 Saturation ABG Base Excess ABG Hemoglobin ABG Oxyhemoglobin ABG Sodium ABG Potassium ABG Chloride ABG Glucose Oxyhemoglobin Sodium Chloride Carbon Dioxide BUN Creatinine Glucose POC Glucose 175 H 157 H 148 H Calcium Ferritin Lactate Dehydrogenase C-Reactive Protein Total Protein Albumin Arterial Blood Glucose Arterial Blood Ionized Calcium Coronavirus (PCR) SARS-CoV-2 IgG Ab 11/23/20 11/23/20 11/23/20 00:01 03:26 05:16 WBC RBC Hgb Hct MCH MCHC Plt Count Lymph % (Auto) Lymph # (Auto) Seg Neutrophils % Seg Neuts % (Manual) Lymphocytes % (Manual) Eosinophils % (Manual) Seg Neutrophils # Seg Neutrophils # Man Lymphocytes # (Manual) Eosinophils # (Manual) D-Dimer ABG pH POC ABG pCO2 POC ABG pO2 54.2 L ABG pO2 ABG HCO3 ABG O2 Saturation ABG Base Excess ABG Hemoglobin 10.9 L ABG Oxyhemoglobin ABG Sodium 133.7 L ABG Potassium ABG Chloride ABG Glucose 217 H Oxyhemoglobin Sodium Chloride Carbon Dioxide BUN Creatinine Glucose POC Glucose 172 H 182 H Calcium Ferritin Lactate Dehydrogenase C-Reactive Protein Total Protein Albumin Arterial Blood Glucose 217 H Arterial Blood Ionized Calcium 4.5 L Coronavirus (PCR) SARS-CoV-2 IgG Ab 07/22/20 07/22/20 07/23/20 11:43 17:08 04:00 WBC 11.6 H RBC 3.54 L Hgb Hct MCH MCHC Plt Count Lymph % (Auto) Lymph # (Auto) Seg Neutrophils % Seg Neuts % (Manual) 94.0 H Lymphocytes % (Manual) 5.0 L Eosinophils % (Manual) Seg Neutrophils # Seg Neutrophils # Man 10.9 H Lymphocytes # (Manual) 0.6 L Eosinophils # (Manual) D-Dimer ABG pH POC ABG pCO2 POC ABG pO2 ABG pO2 ABG HCO3 ABG O2 Saturation ABG Base Excess ABG Hemoglobin ABG Oxyhemoglobin ABG Sodium ABG Potassium ABG Chloride ABG Glucose Oxyhemoglobin Sodium Chloride Carbon Dioxide BUN Creatinine Glucose POC Glucose 159 H 163 H Calcium Ferritin Lactate Dehydrogenase C-Reactive Protein Total Protein Albumin Arterial Blood Glucose Arterial Blood Ionized Calcium Coronavirus (PCR) SARS-CoV-2 IgG Ab 07/23/20 07/23/20 07/23/20 04:00 04:53 04:54 WBC RBC Hgb Hct MCH MCHC Plt Count Lymph % (Auto) Lymph # (Auto) Seg Neutrophils % Seg Neuts % (Manual) Lymphocytes % (Manual) Eosinophils % (Manual) Seg Neutrophils # Seg Neutrophils # Man Lymphocytes # (Manual) Eosinophils # (Manual) D-Dimer ABG pH 7.453 H POC ABG pCO2 POC ABG pO2 ABG pO2 ABG HCO3 32.4 H ABG O2 Saturation ABG Base Excess 7.5 H ABG Hemoglobin 10.7 L ABG Oxyhemoglobin ABG Sodium ABG Potassium ABG Chloride ABG Glucose Oxyhemoglobin Sodium Chloride Carbon Dioxide 35 H BUN Creatinine 0.4 L Glucose 112 H POC Glucose 169 H Calcium 8.2 L Ferritin Lactate Dehydrogenase C-Reactive Protein Total Protein Albumin Arterial Blood Glucose Arterial Blood Ionized Calcium Coronavirus (PCR) SARS-CoV-2 IgG Ab 07/23/20 07/23/20 07/23/20 11:50 23:19 Unknown WBC RBC Hgb Hct MCH MCHC Plt Count Lymph % (Auto) Lymph # (Auto) Seg Neutrophils % Seg Neuts % (Manual) Lymphocytes % (Manual) Eosinophils % (Manual) Seg Neutrophils # Seg Neutrophils # Man Lymphocytes # (Manual) Eosinophils # (Manual) D-Dimer ABG pH POC ABG pCO2 POC ABG pO2 ABG pO2 ABG HCO3 ABG O2 Saturation ABG Base Excess ABG Hemoglobin ABG Oxyhemoglobin ABG Sodium ABG Potassium ABG Chloride ABG Glucose Oxyhemoglobin Sodium Chloride Carbon Dioxide BUN Creatinine Glucose POC Glucose 118 H 168 H Calcium Ferritin Lactate Dehydrogenase C-Reactive Protein Total Protein Albumin Arterial Blood Glucose Arterial Blood Ionized Calcium Coronavirus (PCR) Positive A SARS-CoV-2 IgG Ab 07/24/20 07/24/20 07/24/20 04:11 05:37 11:42 WBC RBC Hgb Hct MCH MCHC Plt Count Lymph % (Auto) Lymph # (Auto) Seg Neutrophils % Seg Neuts % (Manual) Lymphocytes % (Manual) Eosinophils % (Manual) Seg Neutrophils # Seg Neutrophils # Man Lymphocytes # (Manual) Eosinophils # (Manual) D-Dimer ABG pH POC ABG pCO2 POC ABG pO2 ABG pO2 54.4 L ABG HCO3 34.3 H ABG O2 Saturation 89.0 L ABG Base Excess 8.5 H ABG Hemoglobin 11.0 L ABG Oxyhemoglobin ABG Sodium ABG Potassium ABG Chloride ABG Glucose Oxyhemoglobin 87.0 L Sodium Chloride Carbon Dioxide BUN Creatinine Glucose POC Glucose 115 H 166 H Calcium Ferritin Lactate Dehydrogenase C-Reactive Protein Total Protein Albumin Arterial Blood Glucose Arterial Blood Ionized Calcium Coronavirus (PCR) SARS-CoV-2 IgG Ab 07/24/20 07/24/20 07/25/20 17:39 23:38 03:53 WBC RBC Hgb Hct MCH MCHC Plt Count Lymph % (Auto) Lymph # (Auto) Seg Neutrophils % Seg Neuts % (Manual) Lymphocytes % (Manual) Eosinophils % (Manual) Seg Neutrophils # Seg Neutrophils # Man Lymphocytes # (Manual) Eosinophils # (Manual) D-Dimer ABG pH POC ABG pCO2 POC ABG pO2 ABG pO2 175.9 H ABG HCO3 34.0 H ABG O2 Saturation 99.1 H ABG Base Excess 8.2 H ABG Hemoglobin 10.6 L ABG Oxyhemoglobin ABG Sodium ABG Potassium ABG Chloride ABG Glucose Oxyhemoglobin Sodium Chloride Carbon Dioxide BUN Creatinine Glucose POC Glucose 150 H 139 H Calcium Ferritin Lactate Dehydrogenase C-Reactive Protein Total Protein Albumin Arterial Blood Glucose Arterial Blood Ionized Calcium Coronavirus (PCR) SARS-CoV-2 IgG Ab 07/25/20 07/25/20 07/25/20 05:47 12:09 23:46 WBC RBC Hgb Hct MCH MCHC Plt Count Lymph % (Auto) Lymph # (Auto) Seg Neutrophils % Seg Neuts % (Manual) Lymphocytes % (Manual) Eosinophils % (Manual) Seg Neutrophils # Seg Neutrophils # Man Lymphocytes # (Manual) Eosinophils # (Manual) D-Dimer ABG pH POC ABG pCO2 POC ABG pO2 ABG pO2 ABG HCO3 ABG O2 Saturation ABG Base Excess ABG Hemoglobin ABG Oxyhemoglobin ABG Sodium ABG Potassium ABG Chloride ABG Glucose Oxyhemoglobin Sodium Chloride Carbon Dioxide BUN Creatinine Glucose POC Glucose 144 H 152 H 116 H Calcium Ferritin Lactate Dehydrogenase C-Reactive Protein Total Protein Albumin Arterial Blood Glucose Arterial Blood Ionized Calcium Coronavirus (PCR) SARS-CoV-2 IgG Ab 07/26/20 07/26/20 07/26/20 03:48 05:36 11:28 WBC RBC Hgb Hct MCH MCHC Plt Count Lymph % (Auto) Lymph # (Auto) Seg Neutrophils % Seg Neuts % (Manual) Lymphocytes % (Manual) Eosinophils % (Manual) Seg Neutrophils # Seg Neutrophils # Man Lymphocytes # (Manual) Eosinophils # (Manual) D-Dimer ABG pH POC ABG pCO2 POC ABG pO2 ABG pO2 73.4 L ABG HCO3 35.0 H ABG O2 Saturation ABG Base Excess 8.3 H ABG Hemoglobin 9.8 L ABG Oxyhemoglobin ABG Sodium ABG Potassium ABG Chloride ABG Glucose Oxyhemoglobin 93.7 L Sodium Chloride Carbon Dioxide BUN Creatinine Glucose POC Glucose 136 H 145 H Calcium Ferritin Lactate Dehydrogenase C-Reactive Protein Total Protein Albumin Arterial Blood Glucose Arterial Blood Ionized Calcium Coronavirus (PCR) SARS-CoV-2 IgG Ab 07/26/20 07/26/20 07/26/20 14:23 17:19 23:33 WBC 12.0 H RBC 3.12 L Hgb 9.5 L Hct 28.6 L MCH MCHC Plt Count Lymph % (Auto) 4.2 L Lymph # (Auto) 0.5 L Seg Neutrophils % 89.8 H Seg Neuts % (Manual) Lymphocytes % (Manual) Eosinophils % (Manual) Seg Neutrophils # 10.8 H Seg Neutrophils # Man Lymphocytes # (Manual) Eosinophils # (Manual) D-Dimer ABG pH POC ABG pCO2 POC ABG pO2 ABG pO2 ABG HCO3 ABG O2 Saturation ABG Base Excess ABG Hemoglobin ABG Oxyhemoglobin ABG Sodium ABG Potassium ABG Chloride ABG Glucose Oxyhemoglobin Sodium Chloride Carbon Dioxide BUN Creatinine Glucose POC Glucose 202 H 122 H Calcium Ferritin Lactate Dehydrogenase C-Reactive Protein Total Protein Albumin Arterial Blood Glucose Arterial Blood Ionized Calcium Coronavirus (PCR) SARS-CoV-2 IgG Ab 07/27/20 07/27/20 07/27/20 04:30 05:54 12:06 WBC RBC Hgb Hct MCH MCHC Plt Count Lymph % (Auto) Lymph # (Auto) Seg Neutrophils % Seg Neuts % (Manual) Lymphocytes % (Manual) Eosinophils % (Manual) Seg Neutrophils # Seg Neutrophils # Man Lymphocytes # (Manual) Eosinophils # (Manual) D-Dimer ABG pH POC ABG pCO2 POC ABG pO2 ABG pO2 49.0 L ABG HCO3 35.7 H ABG O2 Saturation 87.6 L ABG Base Excess 10.1 H ABG Hemoglobin 11.5 L ABG Oxyhemoglobin ABG Sodium ABG Potassium ABG Chloride ABG Glucose Oxyhemoglobin 85.4 L Sodium Chloride Carbon Dioxide BUN Creatinine Glucose POC Glucose 164 H 149 H Calcium Ferritin Lactate Dehydrogenase C-Reactive Protein Total Protein Albumin Arterial Blood Glucose Arterial Blood Ionized Calcium Coronavirus (PCR) SARS-CoV-2 IgG Ab 07/27/20 07/27/20 07/27/20 13:00 14:18 14:18 WBC 12.2 H RBC 3.33 L Hgb 10.0 L Hct MCH MCHC Plt Count Lymph % (Auto) Lymph # (Auto) Seg Neutrophils % Seg Neuts % (Manual) 90.0 H Lymphocytes % (Manual) 7.0 L Eosinophils % (Manual) Seg Neutrophils # Seg Neutrophils # Man 11.0 H Lymphocytes # (Manual) 0.9 L Eosinophils # (Manual) D-Dimer ABG pH 7.313 L POC ABG pCO2 POC ABG pO2 ABG pO2 107.5 H ABG HCO3 37.6 H ABG O2 Saturation ABG Base Excess 8.1 H ABG Hemoglobin 10.1 L ABG Oxyhemoglobin ABG Sodium ABG Potassium ABG Chloride ABG Glucose Oxyhemoglobin Sodium Chloride 97.6 L Carbon Dioxide 35 H BUN 18 H Creatinine Glucose 135 H POC Glucose Calcium 8.3 L Ferritin Lactate Dehydrogenase C-Reactive Protein Total Protein Albumin Arterial Blood Glucose Arterial Blood Ionized Calcium Coronavirus (PCR) SARS-CoV-2 IgG Ab 07/27/20 07/27/20 07/28/20 17:09 23:14 04:15 WBC RBC Hgb Hct MCH MCHC Plt Count Lymph % (Auto) Lymph # (Auto) Seg Neutrophils % Seg Neuts % (Manual) Lymphocytes % (Manual) Eosinophils % (Manual) Seg Neutrophils # Seg Neutrophils # Man Lymphocytes # (Manual) Eosinophils # (Manual) D-Dimer ABG pH 7.317 L POC ABG pCO2 POC ABG pO2 ABG pO2 130.3 H ABG HCO3 40.9 H ABG O2 Saturation ABG Base Excess 13.5 H ABG Hemoglobin 5.8 L ABG Oxyhemoglobin ABG Sodium ABG Potassium ABG Chloride ABG Glucose Oxyhemoglobin Sodium Chloride Carbon Dioxide BUN Creatinine Glucose POC Glucose 115 H 139 H Calcium Ferritin Lactate Dehydrogenase C-Reactive Protein Total Protein Albumin Arterial Blood Glucose Arterial Blood Ionized Calcium Coronavirus (PCR) SARS-CoV-2 IgG Ab 07/28/20 07/28/20 07/28/20 05:34 09:20 09:20 WBC RBC 2.89 L Hgb 9.5 L Hct 26.6 L MCH 33 H MCHC 36 H Plt Count 123 L Lymph % (Auto) Lymph # (Auto) Seg Neutrophils % Seg Neuts % (Manual) 89.0 H Lymphocytes % (Manual) 5.0 L Eosinophils % (Manual) Seg Neutrophils # Seg Neutrophils # Man 8.6 H Lymphocytes # (Manual) 0.5 L Eosinophils # (Manual) D-Dimer ABG pH POC ABG pCO2 POC ABG pO2 ABG pO2 ABG HCO3 ABG O2 Saturation ABG Base Excess ABG Hemoglobin ABG Oxyhemoglobin ABG Sodium ABG Potassium ABG Chloride ABG Glucose Oxyhemoglobin Sodium 134 L Chloride 95.6 L Carbon Dioxide 39 H BUN Creatinine 0.3 L Glucose 131 H POC Glucose 130 H Calcium 7.9 L Ferritin Lactate Dehydrogenase C-Reactive Protein Total Protein Albumin Arterial Blood Glucose Arterial Blood Ionized Calcium Coronavirus (PCR) SARS-CoV-2 IgG Ab 07/28/20 07/28/20 07/28/20 11:50 18:36 23:22 WBC RBC Hgb Hct MCH MCHC Plt Count Lymph % (Auto) Lymph # (Auto) Seg Neutrophils % Seg Neuts % (Manual) Lymphocytes % (Manual) Eosinophils % (Manual) Seg Neutrophils # Seg Neutrophils # Man Lymphocytes # (Manual) Eosinophils # (Manual) D-Dimer ABG pH POC ABG pCO2 POC ABG pO2 ABG pO2 ABG HCO3 ABG O2 Saturation ABG Base Excess ABG Hemoglobin ABG Oxyhemoglobin ABG Sodium ABG Potassium ABG Chloride ABG Glucose Oxyhemoglobin Sodium Chloride Carbon Dioxide BUN Creatinine Glucose POC Glucose 128 H 119 H 122 H Calcium Ferritin Lactate Dehydrogenase C-Reactive Protein Total Protein Albumin Arterial Blood Glucose Arterial Blood Ionized Calcium Coronavirus (PCR) SARS-CoV-2 IgG Ab 07/29/20 07/29/20 07/29/20 03:18 07:54 07:54 WBC 11.1 H RBC 3.49 L Hgb Hct MCH MCHC Plt Count 139 L Lymph % (Auto) Lymph # (Auto) Seg Neutrophils % Seg Neuts % (Manual) 90.0 H Lymphocytes % (Manual) 1.0 L Eosinophils % (Manual) 5.0 H Seg Neutrophils # Seg Neutrophils # Man 10.0 H Lymphocytes # (Manual) 0.1 L Eosinophils # (Manual) 0.6 H D-Dimer ABG pH POC ABG pCO2 69.5 H POC ABG pO2 109.3 H ABG pO2 ABG HCO3 ABG O2 Saturation ABG Base Excess ABG Hemoglobin 10.8 L ABG Oxyhemoglobin ABG Sodium ABG Potassium ABG Chloride 95.0 L ABG Glucose 138 H Oxyhemoglobin Sodium Chloride 94.5 L Carbon Dioxide 40 H BUN Creatinine 0.5 L D Glucose 104 H POC Glucose Calcium Ferritin Lactate Dehydrogenase C-Reactive Protein Total Protein Albumin Arterial Blood Glucose 138 H Arterial Blood Ionized Calcium Coronavirus (PCR) SARS-CoV-2 IgG Ab 11/30/20 11:05 WBC RBC Hgb Hct MCH MCHC Plt Count Lymph % (Auto) Lymph # (Auto) Seg Neutrophils % Seg Neuts % (Manual) Lymphocytes % (Manual) Eosinophils % (Manual) Seg Neutrophils # Seg Neutrophils # Man Lymphocytes # (Manual) Eosinophils # (Manual) D-Dimer ABG pH POC ABG pCO2 POC ABG pO2 ABG pO2 ABG HCO3 ABG O2 Saturation ABG Base Excess ABG Hemoglobin ABG Oxyhemoglobin ABG Sodium ABG Potassium ABG Chloride ABG Glucose Oxyhemoglobin Sodium Chloride Carbon Dioxide BUN Creatinine Glucose POC Glucose 113 H Calcium Ferritin Lactate Dehydrogenase C-Reactive Protein Total Protein Albumin Arterial Blood Glucose Arterial Blood Ionized Calcium Coronavirus (PCR) SARS-CoV-2 IgG Ab Allied health notes reviewed: nursing
[2020-07-29] MEDS: fentaNYL 100 MCG/2 ML INJ IV PRN (15:45)
[2020-07-29] MEDS: MIDAZOLAM 2 MG/2 ML INJ IV PRN (15:46)
--- NOTE | 2020-07-29 16:28 | Event Note ---
Date: 07/29/20 Acute desaturations, called stat to the bedsdie She is losing volumes on MVS, tachycardia with O2 sast [id number] IV Rocuronium 75mg administered IV Suxa 200mg given to facilitate ETT exchange. Facility is unable to manage Paralytics at this time Stat CXR ordered- no clinical evidence of PTX, mean airway pressures of 30
--- NOTE | 2020-07-29 17:13 | XRay Report ---
CHEST 1 VIEW 07/29/2020 4:07 PM INDICATION / CLINICAL INFORMATION: resp failure. COMPARISON: 07/27/2020 FINDINGS: SUPPORT DEVICES: Stable, satisfactory device positioning. HEART / MEDIASTINUM: No significant abnormality. LUNGS / PLEURA: There is a new moderate right pneumothorax. There is increasing diffuse opacity in th e right lung as well. ADDITIONAL FINDINGS: No significant additional findings. IMPRESSION: 1. New moderate right pneumothorax. According to the certified ophthalmic technologist, the ordering physician is aware of the findings. Signer Name: Dylan Jones MD Signed: 07/29/2020 5:09 PM Workstation Name: [id number]
--- NOTE | 2020-07-29 18:01 | Procedure Note ---
Date of procedure: 07/29/20 Pre-op diagnosis: COVID ARDS Right pneumothorax Post-op diagnosis: same Procedure: Emergent right chest tube placement An angiocath was placed in the anterior chest wall The the 4ICS anterior axillary line, a wound stab wound was placed. I dissected down to the muscle- blunt dissection into the pleural space. Chest tube was placed, sutured in place and connected to pleuravac. Intermittent grade 2 leak noted. CXR was done , PTX had resolved. The chest tube had to be retracted and resutured. The patient remains hypoxic Estimated blood loss: none Pathology: none Condition: critical Disposition: ICU
--- NOTE | 2020-07-29 18:06 | XRay Report ---
CHEST 1 VIEW 07/29/2020 5:34 PM INDICATION / CLINICAL INFORMATION: chest tube insertion. COMPARISON: Chest x-ray 07/29/2020 FINDINGS: SUPPORT DEVICES: New right chest tube has been placed. Left PICC line and ET tube again project in ex pected position. HEART / MEDIASTINUM: No significant abnormality. LUNGS / PLEURA: Small right apical pneumothorax has decreased in size after chest tube placement exte nsive bilateral bronchopneumonia, unchanged. ADDITIONAL FINDINGS: Bilateral subcutaneous emphysema. IMPRESSION: 1. Small right apical pneumothorax has decreased in size after chest tube was placed. 2. Stable extensive bilateral bronchopneumonia Signer Name: Stefano Armendariz MD Signed: 07/29/2020 6:01 PM Workstation Name: [id number]
--- NOTE | 2020-07-29 18:09 | Event Note ---
Date: 07/29/20 Remains hypoxic. We do not Flolan/Nitric available to help with oxygenation. MYNOR ordered Called [facility], [phone], faxed her facesheet to [phone] as requested. Will await their reponse
--- NOTE | 2020-07-29 18:18 | Event Note ---
Date: 07/29/20 Called patient's daughter Christina Gonzalez and gave her updates. She says her Aunty Reji( [phone]) will make all medical decisions for her mother. She will like me to notify her Aunty.
[2020-07-29] MEDS: INSULIN GLARGINE 100 UNITS/ML SUB-Q SCH (18:28)
[2020-07-29] MEDS ORDERED: VANCOMYCIN/NS 1 GM/250 ML 1 GM/250 ML BAG IV ONE (20:27)
[2020-07-29] MEDS: VANCOMYCIN 2,000 MG in SODIUM CHLORIDE 0.9% 500 ML 500 ML IV SCH (22:08)
[2020-07-30] MEDS: INSULIN REGULAR, HUMAN 100 UNIT/ML 3ML VIAL SUB-Q SCH ×4 (06:02→23:35)
[2020-07-30] MEDS: GABAPENTIN 300 MG CAP PO SCH ×3 (06:03→21:06)
[2020-07-30] MEDS: methylPREDNISolone Sod Succinate 40 MG/1 ML INJ IV SCH ×3 (06:08→21:52)
--- NOTE | 2020-07-30 08:08 | XRay Report ---
ABDOMEN 1 VIEW(S) INDICATION / CLINICAL INFORMATION: NGT placement. COMPARISON: 07/19/2020 FINDINGS: TUBES / LINES: The sidehole and distal tip of the nasogastric tube terminate in the mid to distal sto mach. BOWEL GAS PATTERN: No significant abnormality. FREE AIR / EXTRALUMINAL GAS: None seen. ADDITIONAL FINDINGS: No significant additional findings. IMPRESSION: No significant abnormality. Adequate placement of the nasogastric tube. Signer Name: Gabino Alvarez Jr, MD Signed: 07/30/2020 8:04 AM Workstation Name: [id number]
[2020-07-30] MEDS: ARFORMOTEROL 15 MCG/2 ML NEBU IH SCH ×2 (08:26→20:22)
[2020-07-30] MEDS: BUDESONIDE 0.5 MG/2 ML NEBU IH SCH ×2 (08:27→20:23)
[2020-07-30] MEDS: IPRATROPIUM/ALBUTEROL SULFATE 3 ML AMPUL.NEB IH SCH ×3 (08:27→20:23)
[2020-07-30] MEDS: fentaNYL DRIP Premix 2,000 MCG/100 ML BAG IV SCH ×3 (10:40→19:46)
[2020-07-30] MEDS: ASCORBIC ACID 500 MG TAB PO SCH ×2 (10:47→21:00)
[2020-07-30] MEDS: QUEtiapine 200 MG TAB PO SCH ×2 (10:47→21:01)
[2020-07-30] MEDS: VENLAFAXINE 37.5 MG TAB PO SCH (10:47)
[2020-07-30] MEDS: DOCUSATE SODIUM 100 MG/10 ML ORAL LIQD PO SCH ×2 (10:47→21:00)
[2020-07-30] MEDS: QUEtiapine 100 MG TAB PO SCH ×2 (10:47→21:01)
[2020-07-30] MEDS: ASPIRIN 81 MG TAB CHEW PO SCH (10:47)
[2020-07-30] MEDS: LANSOPRAZOLE 30 MG SOLUTAB FEEDTUBE SCH (10:47)
[2020-07-30] MEDS: POLYETHYLENE GLYCOL 3350 17 GM POWDER PO SCH (10:47)
[2020-07-30] MEDS: HYDROXYCHLOROQUINE 200 MG TAB PO SCH (10:47)
[2020-07-30] MEDS: ZINC SULFATE 220 MG CAP PO SCH ×2 (10:47→21:05)
[2020-07-30] MEDS: ENOXAPARIN 30 MG/0.3 ML INJ SUB-Q SCH ×2 (10:48→21:03)
[2020-07-30] MEDS: VANCOMYCIN 2,000 MG in SODIUM CHLORIDE 0.9% 500 ML 500 ML IV SCH ×2 (10:50→21:51)
--- NOTE | 2020-07-30 11:22 | Progress Note ---
Assessment and Plan Acute hypoxemic respiratory failure, now on MVS Bilateral pneumonia, left greater than right lungs. COVID-19 infection. History of congestive heart failure. History of lupus erythematosus. Leukocytosis. Tobacco use disorder. Acute asthma exacerbation. History of hypertension. Obesity - empiric HAP therapy with Cefepime amnd Vanc - ID reconsulted - add Vasopressin for hypotension (target MAP >? 65 mmHg) - onme time dose of Rocuronium (50 mg) re: vent dyssyunchrony - begin Lirium - begin Precedex - Increased Pf to 35, Plow to 10 & reduced cycle time to 4.0 seconds re: paralysis - FiO2 back to 100% - continue chest tube to continuous wall suction - continue care as below otherwise; - repeat COVID-19 test is positive - continue systemic steroids - continue to wean supplemental oxygen for target O2 sat's > 92% - continue low dose SSI - continue Seroquel 300 mg p.o. bid - continue airborne and contact isolation - continue Zinc & Vit C supplementaion - complete Remdesivir - de-escalate AB's per ID rec's - continue systemic steroids for Asthma / severe COVID infection - continue Daily SAT and SBT assessment as tolerated - VAP bundle addressed - continue lung protective strategies - continue bronchodilators with pulmonary hygiene per RT - wean per pulmonary driven protocols otherwise - accuchecks with glycemic control per SSI (While critically ill target blood glucose of 140-180 mg/dL; avoid hypoglycemia) - sedation prn for target RASS -1 to -2 - avoid nephrotoxins, renally dose all medications - continue to avoid benzodiazepine's, reduce the possibility of delirium - prn analgesia per CPOT score - Maintenance of sleep-wake cycle, avoid delirium - continue enteral nutritional support at goal rate as tolerated - G.I. & VTE prophylaxis - PT/OT/ROM exercises - continue mobility protocols for pressure ulcer prophylaxis - Monitor hemodynamics closely - continue other care per attending / other consultants - discharge planning ongoing concurrently .... Re-evaluate in am & prn CONDITION: CRITICAL PROGNOSIS: GUARDED CODE STATUS: FULL CODE The high probability of a clinically significant, sudden or life-threatening deterioration of the [respiratory, cardiovascular & neurologic] system(s) required my full and direct attention, intervention and personal management. The aggregate critical care time was [45] minutes without overlap. Time includes spent on; [x] Data Review and interpretation [x] Patient assessment and monitoring of vital signs [x] Documentation [x] Medication orders and management Subjective Date of service: 07/30/20 Principal diagnosis: Ac hypoxemic resp failure; PNA; COVID-19 infxn; SLE; Asthma exacerbation Interval history: Patient is seen today for: Acute hypoxemic respiratory failure; Bilateral pneumonia; COVID-19 infection; H/O CHF; SLE; Acute asthma exacerbation. HTN; Obesity Seen and examined at bedside; 24hour events reviewed; nursing and respiratory care staff consulted; no adverse overnight events reported to me; resting peacefully in bed; remains on MVS; oxygenation significantly deteriorated and now on APRV mode; s/p intermittent proning also; still desaturating and now hypotensive; + fevers > 101F Objective Vital Signs - 12hr 07/29/20 07/30/20 07/30/20 23:30 00:00 00:01 Temperature Pulse Rate 133 H 134 H 134 H Pulse Rate [ Bilateral Throughout] Pulse Rate [ 134 H From Monitor] Respiratory 39 H 39 H 40 H Rate Respiratory Rate [Bilateral Throughout] Blood Pressure 120/70 116/65 O2 Sat by Pulse 74 L 79 L 79 L Oximetry 07/30/20 07/30/20 07/30/20 00:31 01:00 01:01 Temperature Pulse Rate 124 H 119 H 119 H Pulse Rate [ Bilateral Throughout] Pulse Rate [ From Monitor] Respiratory 39 H 32 H Rate Respiratory Rate [Bilateral Throughout] Blood Pressure 107/73 96/54 96/54 O2 Sat by Pulse 75 L 75 L 79 L Oximetry 07/30/20 07/30/20 07/30/20 01:31 02:00 02:31 Temperature Pulse Rate 124 H 122 H 125 H Pulse Rate [ Bilateral Throughout] Pulse Rate [ From Monitor] Respiratory 31 H 30 H 32 H Rate Respiratory Rate [Bilateral Throughout] Blood Pressure 99/60 100/57 110/57 O2 Sat by Pulse 80 L 81 L 82 L Oximetry 07/30/20 07/30/20 07/30/20 03:01 03:23 03:30 Temperature 100.4 F H Pulse Rate 125 H 122 H Pulse Rate [ Bilateral Throughout] Pulse Rate [ From Monitor] Respiratory 25 H 28 H Rate Respiratory Rate [Bilateral Throughout] Blood Pressure 99/55 107/59 O2 Sat by Pulse 84 86 Oximetry 07/30/20 07/30/20 07/30/20 04:00 04:01 04:30 Temperature Pulse Rate 120 H 122 H 120 H Pulse Rate [ Bilateral Throughout] Pulse Rate [ 134 H From Monitor] Respiratory 39 H 27 H 41 H Rate Respiratory Rate [Bilateral Throughout] Blood Pressure 105/56 114/61 O2 Sat by Pulse 79 L 84 82 L Oximetry 07/30/20 07/30/20 07/30/20 04:34 05:01 05:30 Temperature Pulse Rate 118 H 121 H 126 H Pulse Rate [ Bilateral Throughout] Pulse Rate [ From Monitor] Respiratory 33 H 32 H Rate Respiratory Rate [Bilateral Throughout] Blood Pressure 114/61 107/65 92/57 O2 Sat by Pulse 71 L 81 L 85 Oximetry 07/30/20 07/30/20 07/30/20 06:01 06:31 07:01 Temperature Pulse Rate 123 H 121 H 122 H Pulse Rate [ Bilateral Throughout] Pulse Rate [ From Monitor] Respiratory 32 H 30 H 29 H Rate Respiratory Rate [Bilateral Throughout] Blood Pressure 95/54 98/52 100/57 O2 Sat by Pulse 84 85 85 Oximetry 07/30/20 07/30/20 07/30/20 07:31 08:00 08:01 Temperature 10.1 F L Pulse Rate 119 H 121 H 119 H Pulse Rate [ Bilateral Throughout] Pulse Rate [ 134 H From Monitor] Respiratory 26 H 38 H 24 Rate Respiratory Rate [Bilateral Throughout] Blood Pressure 110/59 92/51 O2 Sat by Pulse 84 88 83 L Oximetry 07/30/20 07/30/20 07/30/20 08:22 08:27 08:31 Temperature Pulse Rate 119 H 120 H Pulse Rate [ 119 H Bilateral Throughout] Pulse Rate [ From Monitor] Respiratory 26 H Rate Respiratory 33 H Rate [Bilateral Throughout] Blood Pressure 112/65 117/67 O2 Sat by Pulse 92 92 Oximetry 07/30/20 07/30/20 09:01 09:31 Temperature Pulse Rate 118 H 117 H Pulse Rate [ Bilateral Throughout] Pulse Rate [ From Monitor] Respiratory 20 23 Rate Respiratory Rate [Bilateral Throughout] Blood Pressure 100/57 84/57 O2 Sat by Pulse 93 94 Oximetry Constitutional: appears uncomfortable, other (middle aged obese female with mildly increased respiratory effort at rest on MVS) Eyes: non-icteric ENT: oropharynx moist, other (ETT 23cm YANET) Neck: supple, no lymphadenopathy, no JVD Effort: mildly labored Ascultation: Bilateral: diminished breath sounds, rhonchi (scant ) Percussion: Bilateral: not dull Cardiovascular: regular rate and rhythm, other (S1,S2) Gastrointestinal: normoactive bowel sounds, soft, non-tender, non-distended Integumentary: normal Extremities: no cyanosis, no edema, pulses normal, no ischemia or petechiae Neurologic: pupils equal and round, other (sedated) Psychiatric: other (unable to assess re: AMS / sedation) CBC and BMP: 07/29/20 07:54 07/29/20 07:54 ABG, PT/INR, D-dimer: ABG ABG pH 7.440 (7.320-7.450) 07/30/20 Unknown POC ABG pCO2 55.1 mmHg (32.0-48.0) H 07/30/20 Unknown ABG pCO2 81.7 mm Hg 07/28/20 04:15 POC ABG pO2 43.6 mmHg (83-108) L 07/30/20 Unknown ABG pO2 130.3 mm Hg (80.0-90.0) H 07/28/20 04:15 POC ABG HCO3 36.6 07/30/20 Unknown ABG O2 Saturation 98.1 % (95.0-99.0) 07/28/20 04:15 PT/INR, D-dimer D-Dimer 826.36 ng/mlDDU (0-234) H 07/13/20 07:20 Abnormal lab findings: Abnormal Labs 07/06/20 07/06/20 07/07/20 05:24 17:16 04:50 WBC 13.5 H 12.7 H RBC Hgb Hct MCH MCHC Plt Count Lymph % (Auto) Lymph # (Auto) Seg Neutrophils % Seg Neuts % (Manual) 86.0 H 87.0 H Lymphocytes % (Manual) 6.0 L 9.0 L Eosinophils % (Manual) Seg Neutrophils # Seg Neutrophils # Man 11.6 H 11.0 H Lymphocytes # (Manual) 0.8 L 1.1 L Eosinophils # (Manual) D-Dimer ABG pH POC ABG pCO2 POC ABG pO2 ABG pO2 ABG HCO3 ABG O2 Saturation ABG Base Excess ABG Hemoglobin ABG Oxyhemoglobin ABG Sodium ABG Potassium ABG Chloride ABG Glucose Oxyhemoglobin Sodium Chloride Carbon Dioxide BUN Creatinine Glucose POC Glucose Calcium Ferritin Lactate Dehydrogenase 242 H C-Reactive Protein 7.30 H Total Protein Albumin Arterial Blood Glucose Arterial Blood Ionized Calcium Coronavirus (PCR) SARS-CoV-2 IgG Ab 07/07/20 07/07/20 07/07/20 04:50 14:22 14:22 WBC RBC Hgb Hct MCH MCHC Plt Count Lymph % (Auto) Lymph # (Auto) Seg Neutrophils % Seg Neuts % (Manual) Lymphocytes % (Manual) Eosinophils % (Manual) Seg Neutrophils # Seg Neutrophils # Man Lymphocytes # (Manual) Eosinophils # (Manual) D-Dimer ABG pH POC ABG pCO2 POC ABG pO2 ABG pO2 ABG HCO3 ABG O2 Saturation ABG Base Excess ABG Hemoglobin ABG Oxyhemoglobin ABG Sodium ABG Potassium ABG Chloride ABG Glucose Oxyhemoglobin Sodium Chloride Carbon Dioxide BUN 18 H Creatinine Glucose 138 H POC Glucose Calcium Ferritin 228.2 H Lactate Dehydrogenase 277 H C-Reactive Protein Total Protein 5.9 L Albumin 3.4 L Arterial Blood Glucose Arterial Blood Ionized Calcium Coronavirus (PCR) SARS-CoV-2 IgG Ab 07/08/20 07/08/20 07/08/20 11:18 12:57 16:13 WBC RBC Hgb Hct MCH MCHC Plt Count Lymph % (Auto) Lymph # (Auto) Seg Neutrophils % Seg Neuts % (Manual) Lymphocytes % (Manual) Eosinophils % (Manual) Seg Neutrophils # Seg Neutrophils # Man Lymphocytes # (Manual) Eosinophils # (Manual) D-Dimer ABG pH POC ABG pCO2 POC ABG pO2 ABG pO2 39.3 L* ABG HCO3 ABG O2 Saturation 76.8 L ABG Base Excess ABG Hemoglobin ABG Oxyhemoglobin ABG Sodium ABG Potassium ABG Chloride ABG Glucose Oxyhemoglobin 75.3 L Sodium Chloride Carbon Dioxide 20 L D BUN Creatinine Glucose 135 H POC Glucose 106 H Calcium 8.0 L Ferritin Lactate Dehydrogenase C-Reactive Protein Total Protein Albumin Arterial Blood Glucose Arterial Blood Ionized Calcium Coronavirus (PCR) SARS-CoV-2 IgG Ab 07/08/20 07/08/20 07/09/20 17:04 18:45 04:00 WBC 15.6 H RBC Hgb Hct MCH MCHC Plt Count Lymph % (Auto) 4.7 L Lymph # (Auto) 0.7 L Seg Neutrophils % Seg Neuts % (Manual) Lymphocytes % (Manual) Eosinophils % (Manual) Seg Neutrophils # 14.2 H Seg Neutrophils # Man Lymphocytes # (Manual) Eosinophils # (Manual) D-Dimer ABG pH POC ABG pCO2 POC ABG pO2 ABG pO2 181.8 H ABG HCO3 ABG O2 Saturation 99.1 H ABG Base Excess ABG Hemoglobin 11.4 L ABG Oxyhemoglobin ABG Sodium ABG Potassium ABG Chloride ABG Glucose Oxyhemoglobin Sodium Chloride Carbon Dioxide BUN Creatinine Glucose POC Glucose 117 H Calcium Ferritin Lactate Dehydrogenase C-Reactive Protein Total Protein Albumin Arterial Blood Glucose Arterial Blood Ionized Calcium Coronavirus (PCR) SARS-CoV-2 IgG Ab 07/09/20 07/09/20 07/09/20 04:00 04:00 04:49 WBC RBC Hgb Hct MCH MCHC Plt Count Lymph % (Auto) Lymph # (Auto) Seg Neutrophils % Seg Neuts % (Manual) Lymphocytes % (Manual) Eosinophils % (Manual) Seg Neutrophils # Seg Neutrophils # Man Lymphocytes # (Manual) Eosinophils # (Manual) D-Dimer ABG pH POC ABG pCO2 POC ABG pO2 ABG pO2 ABG HCO3 26.2 H ABG O2 Saturation ABG Base Excess ABG Hemoglobin 11.2 L ABG Oxyhemoglobin ABG Sodium ABG Potassium ABG Chloride ABG Glucose Oxyhemoglobin 94.9 L Sodium Chloride Carbon Dioxide BUN Creatinine Glucose 158 H POC Glucose Calcium 8.2 L Ferritin 320.0 H Lactate Dehydrogenase 391 H C-Reactive Protein 9.50 H Total Protein 5.9 L Albumin 3.2 L Arterial Blood Glucose Arterial Blood Ionized Calcium Coronavirus (PCR) SARS-CoV-2 IgG Ab 07/09/20 07/09/20 07/09/20 11:56 17:49 23:39 WBC RBC Hgb Hct MCH MCHC Plt Count Lymph % (Auto) Lymph # (Auto) Seg Neutrophils % Seg Neuts % (Manual) Lymphocytes % (Manual) Eosinophils % (Manual) Seg Neutrophils # Seg Neutrophils # Man Lymphocytes # (Manual) Eosinophils # (Manual) D-Dimer ABG pH POC ABG pCO2 POC ABG pO2 ABG pO2 ABG HCO3 ABG O2 Saturation ABG Base Excess ABG Hemoglobin ABG Oxyhemoglobin ABG Sodium ABG Potassium ABG Chloride ABG Glucose Oxyhemoglobin Sodium Chloride Carbon Dioxide BUN Creatinine Glucose POC Glucose 156 H 119 H 145 H Calcium Ferritin Lactate Dehydrogenase C-Reactive Protein Total Protein Albumin Arterial Blood Glucose Arterial Blood Ionized Calcium Coronavirus (PCR) SARS-CoV-2 IgG Ab 07/10/20 07/10/20 07/10/20 03:32 05:26 11:22 WBC RBC Hgb Hct MCH MCHC Plt Count Lymph % (Auto) Lymph # (Auto) Seg Neutrophils % Seg Neuts % (Manual) Lymphocytes % (Manual) Eosinophils % (Manual) Seg Neutrophils # Seg Neutrophils # Man Lymphocytes # (Manual) Eosinophils # (Manual) D-Dimer ABG pH POC ABG pCO2 POC ABG pO2 ABG pO2 75.7 L ABG HCO3 27.5 H ABG O2 Saturation ABG Base Excess ABG Hemoglobin 9.3 L ABG Oxyhemoglobin ABG Sodium ABG Potassium ABG Chloride ABG Glucose Oxyhemoglobin 94.7 L Sodium Chloride Carbon Dioxide BUN Creatinine Glucose POC Glucose 156 H 148 H Calcium Ferritin Lactate Dehydrogenase C-Reactive Protein Total Protein Albumin Arterial Blood Glucose Arterial Blood Ionized Calcium Coronavirus (PCR) SARS-CoV-2 IgG Ab 07/10/20 07/10/20 07/10/20 12:10 12:10 18:20 WBC 14.1 H RBC 3.33 L Hgb 9.9 L Hct MCH MCHC Plt Count Lymph % (Auto) Lymph # (Auto) Seg Neutrophils % Seg Neuts % (Manual) 89.0 H Lymphocytes % (Manual) 8.0 L Eosinophils % (Manual) Seg Neutrophils # Seg Neutrophils # Man 12.5 H Lymphocytes # (Manual) 1.1 L Eosinophils # (Manual) D-Dimer ABG pH POC ABG pCO2 POC ABG pO2 ABG pO2 ABG HCO3 ABG O2 Saturation ABG Base Excess ABG Hemoglobin ABG Oxyhemoglobin ABG Sodium ABG Potassium ABG Chloride ABG Glucose Oxyhemoglobin Sodium Chloride Carbon Dioxide BUN 21 H Creatinine Glucose 154 H POC Glucose 181 H Calcium 8.0 L Ferritin Lactate Dehydrogenase C-Reactive Protein Total Protein 5.4 L Albumin 3.0 L Arterial Blood Glucose Arterial Blood Ionized Calcium Coronavirus (PCR) SARS-CoV-2 IgG Ab 07/10/20 07/11/20 07/11/20 23:51 04:05 05:43 WBC RBC Hgb Hct MCH MCHC Plt Count Lymph % (Auto) Lymph # (Auto) Seg Neutrophils % Seg Neuts % (Manual) Lymphocytes % (Manual) Eosinophils % (Manual) Seg Neutrophils # Seg Neutrophils # Man Lymphocytes # (Manual) Eosinophils # (Manual) D-Dimer ABG pH 7.348 L POC ABG pCO2 POC ABG pO2 ABG pO2 93.6 H ABG HCO3 28.5 H ABG O2 Saturation ABG Base Excess ABG Hemoglobin 10.1 L ABG Oxyhemoglobin ABG Sodium ABG Potassium ABG Chloride ABG Glucose Oxyhemoglobin Sodium Chloride Carbon Dioxide BUN Creatinine Glucose POC Glucose 116 H 132 H Calcium Ferritin Lactate Dehydrogenase C-Reactive Protein Total Protein Albumin Arterial Blood Glucose Arterial Blood Ionized Calcium Coronavirus (PCR) SARS-CoV-2 IgG Ab 07/11/20 07/11/20 07/11/20 09:11 09:11 09:11 WBC 15.8 H RBC 3.44 L Hgb Hct MCH MCHC Plt Count Lymph % (Auto) Lymph # (Auto) Seg Neutrophils % Seg Neuts % (Manual) 92.0 H Lymphocytes % (Manual) 4.0 L Eosinophils % (Manual) Seg Neutrophils # Seg Neutrophils # Man 14.5 H Lymphocytes # (Manual) 0.6 L Eosinophils # (Manual) D-Dimer 360.61 H ABG pH POC ABG pCO2 POC ABG pO2 ABG pO2 ABG HCO3 ABG O2 Saturation ABG Base Excess ABG Hemoglobin ABG Oxyhemoglobin ABG Sodium ABG Potassium ABG Chloride ABG Glucose Oxyhemoglobin Sodium Chloride 107.1 H Carbon Dioxide BUN 22 H Creatinine Glucose 149 H POC Glucose Calcium 7.8 L Ferritin Lactate Dehydrogenase 483 H C-Reactive Protein 2.30 H Total Protein 4.9 L Albumin 3.0 L Arterial Blood Glucose Arterial Blood Ionized Calcium Coronavirus (PCR) SARS-CoV-2 IgG Ab 07/11/20 07/11/20 07/11/20 09:11 12:16 17:55 WBC RBC Hgb Hct MCH MCHC Plt Count Lymph % (Auto) Lymph # (Auto) Seg Neutrophils % Seg Neuts % (Manual) Lymphocytes % (Manual) Eosinophils % (Manual) Seg Neutrophils # Seg Neutrophils # Man Lymphocytes # (Manual) Eosinophils # (Manual) D-Dimer ABG pH POC ABG pCO2 POC ABG pO2 ABG pO2 ABG HCO3 ABG O2 Saturation ABG Base Excess ABG Hemoglobin ABG Oxyhemoglobin ABG Sodium ABG Potassium ABG Chloride ABG Glucose Oxyhemoglobin Sodium Chloride Carbon Dioxide BUN Creatinine Glucose POC Glucose 157 H 166 H Calcium Ferritin 371.2 H Lactate Dehydrogenase C-Reactive Protein Total Protein Albumin Arterial Blood Glucose Arterial Blood Ionized Calcium Coronavirus (PCR) SARS-CoV-2 IgG Ab 07/12/20 07/12/20 07/12/20 00:32 04:00 04:00 WBC RBC 3.52 L Hgb Hct MCH MCHC Plt Count Lymph % (Auto) Lymph # (Auto) Seg Neutrophils % Seg Neuts % (Manual) 90.0 H Lymphocytes % (Manual) 4.0 L Eosinophils % (Manual) Seg Neutrophils # Seg Neutrophils # Man 9.5 H Lymphocytes # (Manual) 0.4 L Eosinophils # (Manual) D-Dimer ABG pH POC ABG pCO2 POC ABG pO2 ABG pO2 ABG HCO3 ABG O2 Saturation ABG Base Excess ABG Hemoglobin ABG Oxyhemoglobin ABG Sodium ABG Potassium ABG Chloride ABG Glucose Oxyhemoglobin Sodium Chloride Carbon Dioxide 31 H BUN 21 H Creatinine Glucose 175 H POC Glucose 178 H Calcium 8.0 L Ferritin Lactate Dehydrogenase C-Reactive Protein Total Protein 5.4 L Albumin 3.0 L Arterial Blood Glucose Arterial Blood Ionized Calcium Coronavirus (PCR) SARS-CoV-2 IgG Ab 07/12/20 07/12/20 07/12/20 04:01 05:47 12:09 WBC RBC Hgb Hct MCH MCHC Plt Count Lymph % (Auto) Lymph # (Auto) Seg Neutrophils % Seg Neuts % (Manual) Lymphocytes % (Manual) Eosinophils % (Manual) Seg Neutrophils # Seg Neutrophils # Man Lymphocytes # (Manual) Eosinophils # (Manual) D-Dimer ABG pH 7.456 H POC ABG pCO2 POC ABG pO2 ABG pO2 ABG HCO3 ABG O2 Saturation ABG Base Excess ABG Hemoglobin 10.6 L ABG Oxyhemoglobin ABG Sodium ABG Potassium ABG Chloride ABG Glucose 177 H Oxyhemoglobin Sodium Chloride Carbon Dioxide BUN Creatinine Glucose POC Glucose 185 H 227 H Calcium Ferritin Lactate Dehydrogenase C-Reactive Protein Total Protein Albumin Arterial Blood Glucose 177 H Arterial Blood Ionized Calcium 4.5 L Coronavirus (PCR) SARS-CoV-2 IgG Ab 07/12/20 07/12/20 07/13/20 17:34 23:57 05:06 WBC RBC Hgb Hct MCH MCHC Plt Count Lymph % (Auto) Lymph # (Auto) Seg Neutrophils % Seg Neuts % (Manual) Lymphocytes % (Manual) Eosinophils % (Manual) Seg Neutrophils # Seg Neutrophils # Man Lymphocytes # (Manual) Eosinophils # (Manual) D-Dimer ABG pH POC ABG pCO2 POC ABG pO2 ABG pO2 ABG HCO3 ABG O2 Saturation ABG Base Excess ABG Hemoglobin ABG Oxyhemoglobin ABG Sodium ABG Potassium ABG Chloride ABG Glucose Oxyhemoglobin Sodium Chloride Carbon Dioxide BUN Creatinine Glucose POC Glucose 202 H 163 H 166 H Calcium Ferritin Lactate Dehydrogenase C-Reactive Protein Total Protein Albumin Arterial Blood Glucose Arterial Blood Ionized Calcium Coronavirus (PCR) SARS-CoV-2 IgG Ab 07/13/20 07/13/20 07/13/20 07:20 07:20 07:20 WBC 20.5 H RBC Hgb Hct MCH MCHC Plt Count Lymph % (Auto) Lymph # (Auto) Seg Neutrophils % Seg Neuts % (Manual) 93.0 H Lymphocytes % (Manual) 3.0 L Eosinophils % (Manual) Seg Neutrophils # Seg Neutrophils # Man 19.1 H Lymphocytes # (Manual) 0.6 L Eosinophils # (Manual) D-Dimer 826.36 H ABG pH POC ABG pCO2 POC ABG pO2 ABG pO2 ABG HCO3 ABG O2 Saturation ABG Base Excess ABG Hemoglobin ABG Oxyhemoglobin ABG Sodium ABG Potassium ABG Chloride ABG Glucose Oxyhemoglobin Sodium Chloride Carbon Dioxide 31 H BUN 25 H Creatinine Glucose 163 H POC Glucose Calcium 8.1 L Ferritin Lactate Dehydrogenase 512 H C-Reactive Protein 1.80 H Total Protein 5.8 L Albumin 3.2 L Arterial Blood Glucose Arterial Blood Ionized Calcium Coronavirus (PCR) SARS-CoV-2 IgG Ab 07/13/20 07/13/20 07/13/20 07:20 11:37 17:20 WBC RBC Hgb Hct MCH MCHC Plt Count Lymph % (Auto) Lymph # (Auto) Seg Neutrophils % Seg Neuts % (Manual) Lymphocytes % (Manual) Eosinophils % (Manual) Seg Neutrophils # Seg Neutrophils # Man Lymphocytes # (Manual) Eosinophils # (Manual) D-Dimer ABG pH POC ABG pCO2 POC ABG pO2 ABG pO2 ABG HCO3 ABG O2 Saturation ABG Base Excess ABG Hemoglobin ABG Oxyhemoglobin ABG Sodium ABG Potassium ABG Chloride ABG Glucose Oxyhemoglobin Sodium Chloride Carbon Dioxide BUN Creatinine Glucose POC Glucose 232 H 210 H Calcium Ferritin 219.8 H Lactate Dehydrogenase C-Reactive Protein Total Protein Albumin Arterial Blood Glucose Arterial Blood Ionized Calcium Coronavirus (PCR) SARS-CoV-2 IgG Ab 07/13/20 07/13/20 07/14/20 23:57 Unknown 05:22 WBC RBC Hgb Hct MCH MCHC Plt Count Lymph % (Auto) Lymph # (Auto) Seg Neutrophils % Seg Neuts % (Manual) Lymphocytes % (Manual) Eosinophils % (Manual) Seg Neutrophils # Seg Neutrophils # Man Lymphocytes # (Manual) Eosinophils # (Manual) D-Dimer ABG pH 7.341 L POC ABG pCO2 POC ABG pO2 133.0 H ABG pO2 56.5 L ABG HCO3 29.7 H ABG O2 Saturation 89.3 L ABG Base Excess ABG Hemoglobin 11.0 L ABG Oxyhemoglobin ABG Sodium ABG Potassium ABG Chloride ABG Glucose 207 H Oxyhemoglobin 87.7 L Sodium Chloride Carbon Dioxide BUN Creatinine Glucose POC Glucose 190 H Calcium Ferritin Lactate Dehydrogenase C-Reactive Protein Total Protein Albumin Arterial Blood Glucose 207 H Arterial Blood Ionized Calcium 4.5 L Coronavirus (PCR) SARS-CoV-2 IgG Ab 07/14/20 07/14/20 07/14/20 05:54 11:16 17:50 WBC RBC Hgb Hct MCH MCHC Plt Count Lymph % (Auto) Lymph # (Auto) Seg Neutrophils % Seg Neuts % (Manual) Lymphocytes % (Manual) Eosinophils % (Manual) Seg Neutrophils # Seg Neutrophils # Man Lymphocytes # (Manual) Eosinophils # (Manual) D-Dimer ABG pH POC ABG pCO2 POC ABG pO2 ABG pO2 ABG HCO3 ABG O2 Saturation ABG Base Excess ABG Hemoglobin ABG Oxyhemoglobin ABG Sodium ABG Potassium ABG Chloride ABG Glucose Oxyhemoglobin Sodium Chloride Carbon Dioxide BUN Creatinine Glucose POC Glucose 206 H 196 H 205 H Calcium Ferritin Lactate Dehydrogenase C-Reactive Protein Total Protein Albumin Arterial Blood Glucose Arterial Blood Ionized Calcium Coronavirus (PCR) SARS-CoV-2 IgG Ab 07/14/20 07/15/20 07/15/20 23:28 03:16 06:12 WBC RBC Hgb Hct MCH MCHC Plt Count Lymph % (Auto) Lymph # (Auto) Seg Neutrophils % Seg Neuts % (Manual) Lymphocytes % (Manual) Eosinophils % (Manual) Seg Neutrophils # Seg Neutrophils # Man Lymphocytes # (Manual) Eosinophils # (Manual) D-Dimer ABG pH POC ABG pCO2 49.2 H POC ABG pO2 120.3 H ABG pO2 ABG HCO3 ABG O2 Saturation ABG Base Excess ABG Hemoglobin 9.5 L ABG Oxyhemoglobin ABG Sodium ABG Potassium ABG Chloride ABG Glucose 148 H Oxyhemoglobin Sodium Chloride Carbon Dioxide BUN Creatinine Glucose POC Glucose 160 H 178 H Calcium Ferritin Lactate Dehydrogenase C-Reactive Protein Total Protein Albumin Arterial Blood Glucose 148 H Arterial Blood Ionized Calcium Coronavirus (PCR) SARS-CoV-2 IgG Ab 07/15/20 07/15/20 07/15/20 09:00 12:32 14:30 WBC RBC Hgb Hct MCH MCHC Plt Count Lymph % (Auto) Lymph # (Auto) Seg Neutrophils % Seg Neuts % (Manual) Lymphocytes % (Manual) Eosinophils % (Manual) Seg Neutrophils # Seg Neutrophils # Man Lymphocytes # (Manual) Eosinophils # (Manual) D-Dimer ABG pH POC ABG pCO2 POC ABG pO2 ABG pO2 ABG HCO3 ABG O2 Saturation ABG Base Excess ABG Hemoglobin ABG Oxyhemoglobin ABG Sodium ABG Potassium ABG Chloride ABG Glucose Oxyhemoglobin Sodium Chloride Carbon Dioxide BUN Creatinine Glucose POC Glucose 173 H Calcium Ferritin Lactate Dehydrogenase 531 H C-Reactive Protein Total Protein Albumin Arterial Blood Glucose Arterial Blood Ionized Calcium Coronavirus (PCR) SARS-CoV-2 IgG Ab Reactive A 07/15/20 07/15/20 07/16/20 18:24 23:35 04:03 WBC RBC Hgb Hct MCH MCHC Plt Count Lymph % (Auto) Lymph # (Auto) Seg Neutrophils % Seg Neuts % (Manual) Lymphocytes % (Manual) Eosinophils % (Manual) Seg Neutrophils # Seg Neutrophils # Man Lymphocytes # (Manual) Eosinophils # (Manual) D-Dimer ABG pH POC ABG pCO2 POC ABG pO2 ABG pO2 72.7 L ABG HCO3 35.5 H ABG O2 Saturation ABG Base Excess 9.4 H ABG Hemoglobin 10.6 L ABG Oxyhemoglobin ABG Sodium ABG Potassium ABG Chloride ABG Glucose Oxyhemoglobin 93.6 L Sodium Chloride Carbon Dioxide BUN Creatinine Glucose POC Glucose 173 H 181 H Calcium Ferritin Lactate Dehydrogenase C-Reactive Protein Total Protein Albumin Arterial Blood Glucose Arterial Blood Ionized Calcium Coronavirus (PCR) SARS-CoV-2 IgG Ab 07/16/20 07/16/20 07/16/20 05:35 09:00 09:00 WBC 16.5 H RBC 3.59 L Hgb Hct MCH MCHC Plt Count Lymph % (Auto) Lymph # (Auto) Seg Neutrophils % Seg Neuts % (Manual) 96.0 H Lymphocytes % (Manual) 3.0 L Eosinophils % (Manual) Seg Neutrophils # Seg Neutrophils # Man 15.8 H Lymphocytes # (Manual) 0.5 L Eosinophils # (Manual) D-Dimer ABG pH POC ABG pCO2 POC ABG pO2 ABG pO2 ABG HCO3 ABG O2 Saturation ABG Base Excess ABG Hemoglobin ABG Oxyhemoglobin ABG Sodium ABG Potassium ABG Chloride ABG Glucose Oxyhemoglobin Sodium Chloride Carbon Dioxide 39 H D BUN 25 H Creatinine 0.4 L Glucose 167 H POC Glucose 129 H Calcium 8.3 L Ferritin Lactate Dehydrogenase C-Reactive Protein Total Protein Albumin Arterial Blood Glucose Arterial Blood Ionized Calcium Coronavirus (PCR) SARS-CoV-2 IgG Ab 07/16/20 07/16/20 07/17/20 12:32 18:28 00:09 WBC RBC Hgb Hct MCH MCHC Plt Count Lymph % (Auto) Lymph # (Auto) Seg Neutrophils % Seg Neuts % (Manual) Lymphocytes % (Manual) Eosinophils % (Manual) Seg Neutrophils # Seg Neutrophils # Man Lymphocytes # (Manual) Eosinophils # (Manual) D-Dimer ABG pH POC ABG pCO2 POC ABG pO2 ABG pO2 ABG HCO3 ABG O2 Saturation ABG Base Excess ABG Hemoglobin ABG Oxyhemoglobin ABG Sodium ABG Potassium ABG Chloride ABG Glucose Oxyhemoglobin Sodium Chloride Carbon Dioxide BUN Creatinine Glucose POC Glucose 187 H 174 H 184 H Calcium Ferritin Lactate Dehydrogenase C-Reactive Protein Total Protein Albumin Arterial Blood Glucose Arterial Blood Ionized Calcium Coronavirus (PCR) SARS-CoV-2 IgG Ab 07/17/20 07/17/20 07/17/20 04:30 05:47 13:03 WBC RBC Hgb Hct MCH MCHC Plt Count Lymph % (Auto) Lymph # (Auto) Seg Neutrophils % Seg Neuts % (Manual) Lymphocytes % (Manual) Eosinophils % (Manual) Seg Neutrophils # Seg Neutrophils # Man Lymphocytes # (Manual) Eosinophils # (Manual) D-Dimer ABG pH POC ABG pCO2 POC ABG pO2 ABG pO2 ABG HCO3 38.1 H ABG O2 Saturation ABG Base Excess 11.3 H ABG Hemoglobin 10.5 L ABG Oxyhemoglobin ABG Sodium ABG Potassium ABG Chloride ABG Glucose Oxyhemoglobin Sodium Chloride Carbon Dioxide BUN Creatinine Glucose POC Glucose 135 H 210 H Calcium Ferritin Lactate Dehydrogenase C-Reactive Protein Total Protein Albumin Arterial Blood Glucose Arterial Blood Ionized Calcium Coronavirus (PCR) SARS-CoV-2 IgG Ab 07/17/20 07/17/20 07/18/20 16:50 23:39 04:01 WBC RBC Hgb Hct MCH MCHC Plt Count Lymph % (Auto) Lymph # (Auto) Seg Neutrophils % Seg Neuts % (Manual) Lymphocytes % (Manual) Eosinophils % (Manual) Seg Neutrophils # Seg Neutrophils # Man Lymphocytes # (Manual) Eosinophils # (Manual) D-Dimer ABG pH POC ABG pCO2 56.8 H POC ABG pO2 61.9 L ABG pO2 ABG HCO3 ABG O2 Saturation ABG Base Excess ABG Hemoglobin 11.7 L ABG Oxyhemoglobin ABG Sodium 134.2 L ABG Potassium 4.7 H ABG Chloride 97.0 L ABG Glucose 173 H Oxyhemoglobin Sodium Chloride Carbon Dioxide BUN Creatinine Glucose POC Glucose 193 H 163 H Calcium Ferritin Lactate Dehydrogenase C-Reactive Protein Total Protein Albumin Arterial Blood Glucose 173 H Arterial Blood Ionized Calcium Coronavirus (PCR) SARS-CoV-2 IgG Ab 07/18/20 07/18/20 07/18/20 05:41 12:03 17:26 WBC RBC Hgb Hct MCH MCHC Plt Count Lymph % (Auto) Lymph # (Auto) Seg Neutrophils % Seg Neuts % (Manual) Lymphocytes % (Manual) Eosinophils % (Manual) Seg Neutrophils # Seg Neutrophils # Man Lymphocytes # (Manual) Eosinophils # (Manual) D-Dimer ABG pH POC ABG pCO2 POC ABG pO2 ABG pO2 ABG HCO3 ABG O2 Saturation ABG Base Excess ABG Hemoglobin ABG Oxyhemoglobin ABG Sodium ABG Potassium ABG Chloride ABG Glucose Oxyhemoglobin Sodium Chloride Carbon Dioxide BUN Creatinine Glucose POC Glucose 153 H 177 H 160 H Calcium Ferritin Lactate Dehydrogenase C-Reactive Protein Total Protein Albumin Arterial Blood Glucose Arterial Blood Ionized Calcium Coronavirus (PCR) SARS-CoV-2 IgG Ab 07/18/20 07/19/20 07/19/20 23:58 04:15 05:05 WBC RBC Hgb Hct MCH MCHC Plt Count Lymph % (Auto) Lymph # (Auto) Seg Neutrophils % Seg Neuts % (Manual) Lymphocytes % (Manual) Eosinophils % (Manual) Seg Neutrophils # Seg Neutrophils # Man Lymphocytes # (Manual) Eosinophils # (Manual) D-Dimer ABG pH 7.465 H POC ABG pCO2 49.1 H POC ABG pO2 49.4 L ABG pO2 ABG HCO3 ABG O2 Saturation ABG Base Excess ABG Hemoglobin 11.6 L ABG Oxyhemoglobin ABG Sodium 132.3 L ABG Potassium ABG Chloride 97.0 L ABG Glucose 148 H Oxyhemoglobin Sodium Chloride Carbon Dioxide BUN Creatinine Glucose POC Glucose 144 H 117 H Calcium Ferritin Lactate Dehydrogenase C-Reactive Protein Total Protein Albumin Arterial Blood Glucose 148 H Arterial Blood Ionized Calcium Coronavirus (PCR) SARS-CoV-2 IgG Ab 07/19/20 07/19/20 07/19/20 08:30 08:30 13:21 WBC 17.2 H RBC 3.59 L Hgb Hct MCH MCHC Plt Count Lymph % (Auto) Lymph # (Auto) Seg Neutrophils % Seg Neuts % (Manual) Lymphocytes % (Manual) Eosinophils % (Manual) Seg Neutrophils # Seg Neutrophils # Man Lymphocytes # (Manual) Eosinophils # (Manual) D-Dimer ABG pH POC ABG pCO2 POC ABG pO2 ABG pO2 ABG HCO3 ABG O2 Saturation ABG Base Excess ABG Hemoglobin ABG Oxyhemoglobin ABG Sodium ABG Potassium ABG Chloride ABG Glucose Oxyhemoglobin Sodium Chloride 95.7 L Carbon Dioxide 37 H BUN 20 H Creatinine 0.4 L Glucose 125 H POC Glucose 137 H Calcium 8.1 L Ferritin Lactate Dehydrogenase C-Reactive Protein Total Protein Albumin Arterial Blood Glucose Arterial Blood Ionized Calcium Coronavirus (PCR) SARS-CoV-2 IgG Ab 07/19/20 07/19/20 07/20/20 16:29 17:28 00:25 WBC RBC Hgb Hct MCH MCHC Plt Count Lymph % (Auto) Lymph # (Auto) Seg Neutrophils % Seg Neuts % (Manual) Lymphocytes % (Manual) Eosinophils % (Manual) Seg Neutrophils # Seg Neutrophils # Man Lymphocytes # (Manual) Eosinophils # (Manual) D-Dimer ABG pH POC ABG pCO2 53.4 H POC ABG pO2 71.0 L ABG pO2 ABG HCO3 ABG O2 Saturation ABG Base Excess ABG Hemoglobin 11.2 L ABG Oxyhemoglobin 93.6 L ABG Sodium 130.9 L ABG Potassium ABG Chloride 95.0 L ABG Glucose 188 H Oxyhemoglobin Sodium Chloride Carbon Dioxide BUN Creatinine Glucose POC Glucose 174 H 188 H Calcium Ferritin Lactate Dehydrogenase C-Reactive Protein Total Protein Albumin Arterial Blood Glucose 188 H Arterial Blood Ionized Calcium 4.4 L Coronavirus (PCR) SARS-CoV-2 IgG Ab 07/20/20 07/20/20 07/20/20 04:14 05:23 12:12 WBC RBC Hgb Hct MCH MCHC Plt Count Lymph % (Auto) Lymph # (Auto) Seg Neutrophils % Seg Neuts % (Manual) Lymphocytes % (Manual) Eosinophils % (Manual) Seg Neutrophils # Seg Neutrophils # Man Lymphocytes # (Manual) Eosinophils # (Manual) D-Dimer ABG pH POC ABG pCO2 52.7 H POC ABG pO2 59.5 L ABG pO2 ABG HCO3 ABG O2 Saturation ABG Base Excess ABG Hemoglobin 10.6 L ABG Oxyhemoglobin ABG Sodium 134.4 L ABG Potassium ABG Chloride ABG Glucose 176 H Oxyhemoglobin Sodium Chloride Carbon Dioxide BUN Creatinine Glucose POC Glucose 212 H 190 H Calcium Ferritin Lactate Dehydrogenase C-Reactive Protein Total Protein Albumin Arterial Blood Glucose 176 H Arterial Blood Ionized Calcium 4.5 L Coronavirus (PCR) SARS-CoV-2 IgG Ab 07/20/20 07/21/20 07/21/20 16:59 00:01 04:30 WBC RBC Hgb Hct MCH MCHC Plt Count Lymph % (Auto) Lymph # (Auto) Seg Neutrophils % Seg Neuts % (Manual) Lymphocytes % (Manual) Eosinophils % (Manual) Seg Neutrophils # Seg Neutrophils # Man Lymphocytes # (Manual) Eosinophils # (Manual) D-Dimer ABG pH 7.468 H POC ABG pCO2 POC ABG pO2 63.3 L ABG pO2 ABG HCO3 ABG O2 Saturation ABG Base Excess ABG Hemoglobin 11 L ABG Oxyhemoglobin ABG Sodium 135.0 L ABG Potassium ABG Chloride ABG Glucose 204 H Oxyhemoglobin Sodium Chloride Carbon Dioxide BUN Creatinine Glucose POC Glucose 201 H 177 H Calcium Ferritin Lactate Dehydrogenase C-Reactive Protein Total Protein Albumin Arterial Blood Glucose 204 H Arterial Blood Ionized Calcium 4.5 L Coronavirus (PCR) SARS-CoV-2 IgG Ab 07/21/20 07/21/20 07/21/20 05:26 11:50 17:16 WBC RBC Hgb Hct MCH MCHC Plt Count Lymph % (Auto) Lymph # (Auto) Seg Neutrophils % Seg Neuts % (Manual) Lymphocytes % (Manual) Eosinophils % (Manual) Seg Neutrophils # Seg Neutrophils # Man Lymphocytes # (Manual) Eosinophils # (Manual) D-Dimer ABG pH POC ABG pCO2 POC ABG pO2 ABG pO2 ABG HCO3 ABG O2 Saturation ABG Base Excess ABG Hemoglobin ABG Oxyhemoglobin ABG Sodium ABG Potassium ABG Chloride ABG Glucose Oxyhemoglobin Sodium Chloride Carbon Dioxide BUN Creatinine Glucose POC Glucose 175 H 157 H 148 H Calcium Ferritin Lactate Dehydrogenase C-Reactive Protein Total Protein Albumin Arterial Blood Glucose Arterial Blood Ionized Calcium Coronavirus (PCR) SARS-CoV-2 IgG Ab 07/22/20 07/22/20 07/22/20 00:01 03:26 05:16 WBC RBC Hgb Hct MCH MCHC Plt Count Lymph % (Auto) Lymph # (Auto) Seg Neutrophils % Seg Neuts % (Manual) Lymphocytes % (Manual) Eosinophils % (Manual) Seg Neutrophils # Seg Neutrophils # Man Lymphocytes # (Manual) Eosinophils # (Manual) D-Dimer ABG pH POC ABG pCO2 POC ABG pO2 54.2 L ABG pO2 ABG HCO3 ABG O2 Saturation ABG Base Excess ABG Hemoglobin 10.9 L ABG Oxyhemoglobin ABG Sodium 133.7 L ABG Potassium ABG Chloride ABG Glucose 217 H Oxyhemoglobin Sodium Chloride Carbon Dioxide BUN Creatinine Glucose POC Glucose 172 H 182 H Calcium Ferritin Lactate Dehydrogenase C-Reactive Protein Total Protein Albumin Arterial Blood Glucose 217 H Arterial Blood Ionized Calcium 4.5 L Coronavirus (PCR) SARS-CoV-2 IgG Ab 07/22/20 07/22/20 07/23/20 11:43 17:08 04:00 WBC 11.6 H RBC 3.54 L Hgb Hct MCH MCHC Plt Count Lymph % (Auto) Lymph # (Auto) Seg Neutrophils % Seg Neuts % (Manual) 94.0 H Lymphocytes % (Manual) 5.0 L Eosinophils % (Manual) Seg Neutrophils # Seg Neutrophils # Man 10.9 H Lymphocytes # (Manual) 0.6 L Eosinophils # (Manual) D-Dimer ABG pH POC ABG pCO2 POC ABG pO2 ABG pO2 ABG HCO3 ABG O2 Saturation ABG Base Excess ABG Hemoglobin ABG Oxyhemoglobin ABG Sodium ABG Potassium ABG Chloride ABG Glucose Oxyhemoglobin Sodium Chloride Carbon Dioxide BUN Creatinine Glucose POC Glucose 159 H 163 H Calcium Ferritin Lactate Dehydrogenase C-Reactive Protein Total Protein Albumin Arterial Blood Glucose Arterial Blood Ionized Calcium Coronavirus (PCR) SARS-CoV-2 IgG Ab 07/23/20 07/23/20 07/23/20 04:00 04:53 04:54 WBC RBC Hgb Hct MCH MCHC Plt Count Lymph % (Auto) Lymph # (Auto) Seg Neutrophils % Seg Neuts % (Manual) Lymphocytes % (Manual) Eosinophils % (Manual) Seg Neutrophils # Seg Neutrophils # Man Lymphocytes # (Manual) Eosinophils # (Manual) D-Dimer ABG pH 7.453 H POC ABG pCO2 POC ABG pO2 ABG pO2 ABG HCO3 32.4 H ABG O2 Saturation ABG Base Excess 7.5 H ABG Hemoglobin 10.7 L ABG Oxyhemoglobin ABG Sodium ABG Potassium ABG Chloride ABG Glucose Oxyhemoglobin Sodium Chloride Carbon Dioxide 35 H BUN Creatinine 0.4 L Glucose 112 H POC Glucose 169 H Calcium 8.2 L Ferritin Lactate Dehydrogenase C-Reactive Protein Total Protein Albumin Arterial Blood Glucose Arterial Blood Ionized Calcium Coronavirus (PCR) SARS-CoV-2 IgG Ab 07/23/20 07/23/20 07/23/20 11:50 23:19 Unknown WBC RBC Hgb Hct MCH MCHC Plt Count Lymph % (Auto) Lymph # (Auto) Seg Neutrophils % Seg Neuts % (Manual) Lymphocytes % (Manual) Eosinophils % (Manual) Seg Neutrophils # Seg Neutrophils # Man Lymphocytes # (Manual) Eosinophils # (Manual) D-Dimer ABG pH POC ABG pCO2 POC ABG pO2 ABG pO2 ABG HCO3 ABG O2 Saturation ABG Base Excess ABG Hemoglobin ABG Oxyhemoglobin ABG Sodium ABG Potassium ABG Chloride ABG Glucose Oxyhemoglobin Sodium Chloride Carbon Dioxide BUN Creatinine Glucose POC Glucose 118 H 168 H Calcium Ferritin Lactate Dehydrogenase C-Reactive Protein Total Protein Albumin Arterial Blood Glucose Arterial Blood Ionized Calcium Coronavirus (PCR) Positive A SARS-CoV-2 IgG Ab 07/24/20 07/24/20 07/24/20 04:11 05:37 11:42 WBC RBC Hgb Hct MCH MCHC Plt Count Lymph % (Auto) Lymph # (Auto) Seg Neutrophils % Seg Neuts % (Manual) Lymphocytes % (Manual) Eosinophils % (Manual) Seg Neutrophils # Seg Neutrophils # Man Lymphocytes # (Manual) Eosinophils # (Manual) D-Dimer ABG pH POC ABG pCO2 POC ABG pO2 ABG pO2 54.4 L ABG HCO3 34.3 H ABG O2 Saturation 89.0 L ABG Base Excess 8.5 H ABG Hemoglobin 11.0 L ABG Oxyhemoglobin ABG Sodium ABG Potassium ABG Chloride ABG Glucose Oxyhemoglobin 87.0 L Sodium Chloride Carbon Dioxide BUN Creatinine Glucose POC Glucose 115 H 166 H Calcium Ferritin Lactate Dehydrogenase C-Reactive Protein Total Protein Albumin Arterial Blood Glucose Arterial Blood Ionized Calcium Coronavirus (PCR) SARS-CoV-2 IgG Ab 07/24/20 07/24/20 07/25/20 17:39 23:38 03:53 WBC RBC Hgb Hct MCH MCHC Plt Count Lymph % (Auto) Lymph # (Auto) Seg Neutrophils % Seg Neuts % (Manual) Lymphocytes % (Manual) Eosinophils % (Manual) Seg Neutrophils # Seg Neutrophils # Man Lymphocytes # (Manual) Eosinophils # (Manual) D-Dimer ABG pH POC ABG pCO2 POC ABG pO2 ABG pO2 175.9 H ABG HCO3 34.0 H ABG O2 Saturation 99.1 H ABG Base Excess 8.2 H ABG Hemoglobin 10.6 L ABG Oxyhemoglobin ABG Sodium ABG Potassium ABG Chloride ABG Glucose Oxyhemoglobin Sodium Chloride Carbon Dioxide BUN Creatinine Glucose POC Glucose 150 H 139 H Calcium Ferritin Lactate Dehydrogenase C-Reactive Protein Total Protein Albumin Arterial Blood Glucose Arterial Blood Ionized Calcium Coronavirus (PCR) SARS-CoV-2 IgG Ab 07/25/20 07/25/20 07/25/20 05:47 12:09 23:46 WBC RBC Hgb Hct MCH MCHC Plt Count Lymph % (Auto) Lymph # (Auto) Seg Neutrophils % Seg Neuts % (Manual) Lymphocytes % (Manual) Eosinophils % (Manual) Seg Neutrophils # Seg Neutrophils # Man Lymphocytes # (Manual) Eosinophils # (Manual) D-Dimer ABG pH POC ABG pCO2 POC ABG pO2 ABG pO2 ABG HCO3 ABG O2 Saturation ABG Base Excess ABG Hemoglobin ABG Oxyhemoglobin ABG Sodium ABG Potassium ABG Chloride ABG Glucose Oxyhemoglobin Sodium Chloride Carbon Dioxide BUN Creatinine Glucose POC Glucose 144 H 152 H 116 H Calcium Ferritin Lactate Dehydrogenase C-Reactive Protein Total Protein Albumin Arterial Blood Glucose Arterial Blood Ionized Calcium Coronavirus (PCR) SARS-CoV-2 IgG Ab 07/26/20 07/26/20 07/26/20 03:48 05:36 11:28 WBC RBC Hgb Hct MCH MCHC Plt Count Lymph % (Auto) Lymph # (Auto) Seg Neutrophils % Seg Neuts % (Manual) Lymphocytes % (Manual) Eosinophils % (Manual) Seg Neutrophils # Seg Neutrophils # Man Lymphocytes # (Manual) Eosinophils # (Manual) D-Dimer ABG pH POC ABG pCO2 POC ABG pO2 ABG pO2 73.4 L ABG HCO3 35.0 H ABG O2 Saturation ABG Base Excess 8.3 H ABG Hemoglobin 9.8 L ABG Oxyhemoglobin ABG Sodium ABG Potassium ABG Chloride ABG Glucose Oxyhemoglobin 93.7 L Sodium Chloride Carbon Dioxide BUN Creatinine Glucose POC Glucose 136 H 145 H Calcium Ferritin Lactate Dehydrogenase C-Reactive Protein Total Protein Albumin Arterial Blood Glucose Arterial Blood Ionized Calcium Coronavirus (PCR) SARS-CoV-2 IgG Ab 07/26/20 07/26/20 07/26/20 14:23 17:19 23:33 WBC 12.0 H RBC 3.12 L Hgb 9.5 L Hct 28.6 L MCH MCHC Plt Count Lymph % (Auto) 4.2 L Lymph # (Auto) 0.5 L Seg Neutrophils % 89.8 H Seg Neuts % (Manual) Lymphocytes % (Manual) Eosinophils % (Manual) Seg Neutrophils # 10.8 H Seg Neutrophils # Man Lymphocytes # (Manual) Eosinophils # (Manual) D-Dimer ABG pH POC ABG pCO2 POC ABG pO2 ABG pO2 ABG HCO3 ABG O2 Saturation ABG Base Excess ABG Hemoglobin ABG Oxyhemoglobin ABG Sodium ABG Potassium ABG Chloride ABG Glucose Oxyhemoglobin Sodium Chloride Carbon Dioxide BUN Creatinine Glucose POC Glucose 202 H 122 H Calcium Ferritin Lactate Dehydrogenase C-Reactive Protein Total Protein Albumin Arterial Blood Glucose Arterial Blood Ionized Calcium Coronavirus (PCR) SARS-CoV-2 IgG Ab 07/27/20 07/27/20 07/27/20 04:30 05:54 12:06 WBC RBC Hgb Hct MCH MCHC Plt Count Lymph % (Auto) Lymph # (Auto) Seg Neutrophils % Seg Neuts % (Manual) Lymphocytes % (Manual) Eosinophils % (Manual) Seg Neutrophils # Seg Neutrophils # Man Lymphocytes # (Manual) Eosinophils # (Manual) D-Dimer ABG pH POC ABG pCO2 POC ABG pO2 ABG pO2 49.0 L ABG HCO3 35.7 H ABG O2 Saturation 87.6 L ABG Base Excess 10.1 H ABG Hemoglobin 11.5 L ABG Oxyhemoglobin ABG Sodium ABG Potassium ABG Chloride ABG Glucose Oxyhemoglobin 85.4 L Sodium Chloride Carbon Dioxide BUN Creatinine Glucose POC Glucose 164 H 149 H Calcium Ferritin Lactate Dehydrogenase C-Reactive Protein Total Protein Albumin Arterial Blood Glucose Arterial Blood Ionized Calcium Coronavirus (PCR) SARS-CoV-2 IgG Ab 07/27/20 07/27/20 07/27/20 13:00 14:18 14:18 WBC 12.2 H RBC 3.33 L Hgb 10.0 L Hct MCH MCHC Plt Count Lymph % (Auto) Lymph # (Auto) Seg Neutrophils % Seg Neuts % (Manual) 90.0 H Lymphocytes % (Manual) 7.0 L Eosinophils % (Manual) Seg Neutrophils # Seg Neutrophils # Man 11.0 H Lymphocytes # (Manual) 0.9 L Eosinophils # (Manual) D-Dimer ABG pH 7.313 L POC ABG pCO2 POC ABG pO2 ABG pO2 107.5 H ABG HCO3 37.6 H ABG O2 Saturation ABG Base Excess 8.1 H ABG Hemoglobin 10.1 L ABG Oxyhemoglobin ABG Sodium ABG Potassium ABG Chloride ABG Glucose Oxyhemoglobin Sodium Chloride 97.6 L Carbon Dioxide 35 H BUN 18 H Creatinine Glucose 135 H POC Glucose Calcium 8.3 L Ferritin Lactate Dehydrogenase C-Reactive Protein Total Protein Albumin Arterial Blood Glucose Arterial Blood Ionized Calcium Coronavirus (PCR) SARS-CoV-2 IgG Ab 07/27/20 07/27/20 07/28/20 17:09 23:14 04:15 WBC RBC Hgb Hct MCH MCHC Plt Count Lymph % (Auto) Lymph # (Auto) Seg Neutrophils % Seg Neuts % (Manual) Lymphocytes % (Manual) Eosinophils % (Manual) Seg Neutrophils # Seg Neutrophils # Man Lymphocytes # (Manual) Eosinophils # (Manual) D-Dimer ABG pH 7.317 L POC ABG pCO2 POC ABG pO2 ABG pO2 130.3 H ABG HCO3 40.9 H ABG O2 Saturation ABG Base Excess 13.5 H ABG Hemoglobin 5.8 L ABG Oxyhemoglobin ABG Sodium ABG Potassium ABG Chloride ABG Glucose Oxyhemoglobin Sodium Chloride Carbon Dioxide BUN Creatinine Glucose POC Glucose 115 H 139 H Calcium Ferritin Lactate Dehydrogenase C-Reactive Protein Total Protein Albumin Arterial Blood Glucose Arterial Blood Ionized Calcium Coronavirus (PCR) SARS-CoV-2 IgG Ab 07/28/20 07/28/20 07/28/20 05:34 09:20 09:20 WBC RBC 2.89 L Hgb 9.5 L Hct 26.6 L MCH 33 H MCHC 36 H Plt Count 123 L Lymph % (Auto) Lymph # (Auto) Seg Neutrophils % Seg Neuts % (Manual) 89.0 H Lymphocytes % (Manual) 5.0 L Eosinophils % (Manual) Seg Neutrophils # Seg Neutrophils # Man 8.6 H Lymphocytes # (Manual) 0.5 L Eosinophils # (Manual) D-Dimer ABG pH POC ABG pCO2 POC ABG pO2 ABG pO2 ABG HCO3 ABG O2 Saturation ABG Base Excess ABG Hemoglobin ABG Oxyhemoglobin ABG Sodium ABG Potassium ABG Chloride ABG Glucose Oxyhemoglobin Sodium 134 L Chloride 95.6 L Carbon Dioxide 39 H BUN Creatinine 0.3 L Glucose 131 H POC Glucose 130 H Calcium 7.9 L Ferritin Lactate Dehydrogenase C-Reactive Protein Total Protein Albumin Arterial Blood Glucose Arterial Blood Ionized Calcium Coronavirus (PCR) SARS-CoV-2 IgG Ab 07/28/20 07/28/20 07/28/20 11:50 18:36 23:22 WBC RBC Hgb Hct MCH MCHC Plt Count Lymph % (Auto) Lymph # (Auto) Seg Neutrophils % Seg Neuts % (Manual) Lymphocytes % (Manual) Eosinophils % (Manual) Seg Neutrophils # Seg Neutrophils # Man Lymphocytes # (Manual) Eosinophils # (Manual) D-Dimer ABG pH POC ABG pCO2 POC ABG pO2 ABG pO2 ABG HCO3 ABG O2 Saturation ABG Base Excess ABG Hemoglobin ABG Oxyhemoglobin ABG Sodium ABG Potassium ABG Chloride ABG Glucose Oxyhemoglobin Sodium Chloride Carbon Dioxide BUN Creatinine Glucose POC Glucose 128 H 119 H 122 H Calcium Ferritin Lactate Dehydrogenase C-Reactive Protein Total Protein Albumin Arterial Blood Glucose Arterial Blood Ionized Calcium Coronavirus (PCR) SARS-CoV-2 IgG Ab 07/29/20 07/29/20 07/29/20 03:18 07:54 07:54 WBC 11.1 H RBC 3.49 L Hgb Hct MCH MCHC Plt Count 139 L Lymph % (Auto) Lymph # (Auto) Seg Neutrophils % Seg Neuts % (Manual) 90.0 H Lymphocytes % (Manual) 1.0 L Eosinophils % (Manual) 5.0 H Seg Neutrophils # Seg Neutrophils # Man 10.0 H Lymphocytes # (Manual) 0.1 L Eosinophils # (Manual) 0.6 H D-Dimer ABG pH POC ABG pCO2 69.5 H POC ABG pO2 109.3 H ABG pO2 ABG HCO3 ABG O2 Saturation ABG Base Excess ABG Hemoglobin 10.8 L ABG Oxyhemoglobin ABG Sodium ABG Potassium ABG Chloride 95.0 L ABG Glucose 138 H Oxyhemoglobin Sodium Chloride 94.5 L Carbon Dioxide 40 H BUN Creatinine 0.5 L D Glucose 104 H POC Glucose Calcium Ferritin Lactate Dehydrogenase C-Reactive Protein Total Protein Albumin Arterial Blood Glucose 138 H Arterial Blood Ionized Calcium Coronavirus (PCR) SARS-CoV-2 IgG Ab 07/29/20 07/29/20 07/29/20 11:05 18:17 19:41 WBC RBC Hgb Hct MCH MCHC Plt Count Lymph % (Auto) Lymph # (Auto) Seg Neutrophils % Seg Neuts % (Manual) Lymphocytes % (Manual) Eosinophils % (Manual) Seg Neutrophils # Seg Neutrophils # Man Lymphocytes # (Manual) Eosinophils # (Manual) D-Dimer ABG pH 7.305 L POC ABG pCO2 73.3 H 66.7 H POC ABG pO2 28.2 L 32.7 L ABG pO2 ABG HCO3 ABG O2 Saturation ABG Base Excess ABG Hemoglobin 11.8 L 11.5 L ABG Oxyhemoglobin ABG Sodium ABG Potassium ABG Chloride 94.0 L 95.0 L ABG Glucose 207 H 141 H Oxyhemoglobin Sodium Chloride Carbon Dioxide BUN Creatinine Glucose POC Glucose 113 H Calcium Ferritin Lactate Dehydrogenase C-Reactive Protein Total Protein Albumin Arterial Blood Glucose 207 H 141 H Arterial Blood Ionized Calcium 4.5 L Coronavirus (PCR) SARS-CoV-2 IgG Ab 07/29/20 07/30/20 07/30/20 23:28 05:28 Unknown WBC RBC Hgb Hct MCH MCHC Plt Count Lymph % (Auto) Lymph # (Auto) Seg Neutrophils % Seg Neuts % (Manual) Lymphocytes % (Manual) Eosinophils % (Manual) Seg Neutrophils # Seg Neutrophils # Man Lymphocytes # (Manual) Eosinophils # (Manual) D-Dimer ABG pH POC ABG pCO2 55.1 H POC ABG pO2 43.6 L ABG pO2 ABG HCO3 ABG O2 Saturation ABG Base Excess ABG Hemoglobin 11.9 L ABG Oxyhemoglobin ABG Sodium ABG Potassium ABG Chloride 96.0 L ABG Glucose 150 H Oxyhemoglobin Sodium Chloride Carbon Dioxide BUN Creatinine Glucose POC Glucose 121 H 143 H Calcium Ferritin Lactate Dehydrogenase C-Reactive Protein Total Protein Albumin Arterial Blood Glucose 150 H Arterial Blood Ionized Calcium Coronavirus (PCR) SARS-CoV-2 IgG Ab Chest x-ray: image reviewed (chest tube in good position; persistent bilateral infiltrates) Allied health notes reviewed: nursing
[2020-07-30] MEDS: PROPOFOL 500 MG/50 ML VIAL IV SCH ×8 (12:23→22:54)
[2020-07-30] MEDS ORDERED: ROCURONIUM 50 MG/5 ML INJ IV ONE ×3 (12:32→22:15)
--- NOTE | 2020-07-30 12:37 | XRay Report ---
CHEST - 1 VIEW 1141 hours INDICATION: chest tube position COMPARISON: Yesterday FINDINGS: Support devices: Stable support device positioning. Right chest tube terminates near the medial righ t lung base is unchanged. Heart: Stable cardiomediastinal silhouette. Lungs/pleura: Bilateral lung opacities or congestive changes have decreased by 50%. Tiny right apica l pneumothorax is suspected measuring less than 1 cm. Additional findings: None. IMPRESSION: Right chest tube as described. Tiny right apical pneumothorax. Decreased bilateral infiltrates or congestive changes. Signer Name: Gabino Alvarez Jr, MD Signed: 07/30/2020 12:33 PM Workstation Name: [id number]
[2020-07-30] MEDS ORDERED: VANCOMYCIN/NS 1 GM/250 ML 1 GM/250 ML BAG IV SCH (13:00)
[2020-07-30] MEDS: chlordiazePOXIDE 25 MG CAP PO SCH ×2 (13:39→21:51)
[2020-07-30] MEDS: CEFEPIME/NS 2 GM/100 ML 2 GM/100 ML BAG IV SCH ×2 (13:50→21:02)
[2020-07-30] MEDS ORDERED: CEFEPIME/NS 1 GM/100 ML 1 GM/100 ML BAG IV SCH (14:00)
[2020-07-30] MEDS: VASOPRESSIN 20 UNIT in SODIUM CHLORIDE 0.9% 100 ML IV SCH (14:08)
[2020-07-30] MEDS: PHENYLEPHRINE 100 MG in SODIUM CHLORIDE 0.9% 90 ML IV SCH (15:25)
[2020-07-30 15:35] LABS: Hemoglobin 9.1 gm/dl (10.1-14.3); Mean Corpuscular HGB Conc 35 % (30-34); Mean Corpuscular Volume 93 fl (79-97); Platelet Count 101 K/mm3 (140-440); Red Cell Distribution Width 15.2 % (13.2-15.2)
--- NOTE | 2020-07-30 16:25 | Progress Note ---
Assessment and Plan Cultures: Blood culture 07/19/2020 no growth so far A/P:50-year-old female with CHF, asthma, hypertension, lupus initially admitted with severe COVID-19, now febrile with possible VAP #Acute sepsis: Present with fevers and tachycardia. Possible source VAP #Acute hypoxic respiratory failure #Possible VAP: Chest x-ray not especially concerning, however worsening pulmonary status with associated fevers. #Lupus: On Plaquenil. #CHF #Asthma Recs: -Obtain MRSA swab -Continue empiric cefepime and vancomycin goal trough 10-20 for now. -Repeat procalcitonin -Blood, urine, sputum cultures. Thank you for the consult, we will continue to follow. Robert Zeng MD [facility] ([facility]) O: [phone] F: [phone] Subjective Date of service: 07/30/20 Principal diagnosis: Ac hypoxemic resp failure; PNA; COVID-19 infxn; SLE; Asthma exacerbation Interval history: We have been recalled to Ms. Gonzalez dated concern for hospital- acquired/ventilator associated pneumonia. She had been previously seen during her admission here due to severe COVID-19 when she had completed steroids and remdesivir. She remains critically ill, and potential transfer to [place] has been initiated. She is now febrile to 102.7 with low normal white count. She is currently receiving vancomycin and cefepime. Most recent cultures from 07/27/2020 are no growth so far. Imaging personally reviewed: Chest x-ray: Right chest tube in place with associated tiny apical pneumothorax which is improved from previous. Improving bilateral infiltrates. Objective - Exam Narrative Exam: Physical exam deferred due to PPE conservation strategy. Please refer to primary team's note. - Constitutional Vitals: Vital Signs Temp Pulse Resp BP Pulse Ox 10.1 F L 115 H 13 93/63 84 07/30/20 08:00 07/30/20 15:54 07/30/20 15:45 07/30/20 15:54 07/30/20 15:54 Temperature -Last 24 Hours Temperature 10.1 F Temperature 100.4 F Temperature 102.7 F Temperature 100.6 F - Labs CBC & Chem 7: 07/30/20 15:15 07/30/20 15:15 Labs: Abnormal lab results 07/29/20 07/29/20 07/29/20 Range/Units 18:17 19:41 23:28 RBC (3.65-5.03) M/mm3 Hgb (10.1-14.3) gm/dl Hct (30.3-42.9) % MCHC (30-34) % Plt Count (140-440) K/mm3 ABG pH 7.305 L (7.320-7.450) POC ABG pCO2 73.3 H 66.7 H (32.0-48.0) mmHg POC ABG pO2 28.2 L 32.7 L (83-108) mmHg ABG Hemoglobin 11.8 L 11.5 L (12.0-17.5) ABG Oxyhemoglobin (94-98) ABG Chloride 94.0 L 95.0 L (98-107) mmol/L ABG Glucose 207 H 141 H (65-95) mg/dL Chloride (98-107) mmol/L Carbon Dioxide (22-30) mmol/L BUN (7-17) mg/dL Creatinine (0.6-1.2) mg/dL Glucose (65-100) mg/dL POC Glucose 121 H (70-105) mg/dL Lactic Acid (0.7-2.0) mmol/L Calcium (8.4-10.2) mg/dL Arterial Blood Glucose 207 H 141 H (65-95) mg/dL Arterial Blood Ionized Calcium 4.5 L (4.6-5.3) mg/dL 07/30/20 07/30/20 07/30/20 Range/Units 04:47 05:28 08:18 RBC (3.65-5.03) M/mm3 Hgb (10.1-14.3) gm/dl Hct (30.3-42.9) % MCHC (30-34) % Plt Count (140-440) K/mm3 ABG pH (7.320-7.450) POC ABG pCO2 55.1 H 63.3 H (32.0-48.0) mmHg POC ABG pO2 43.6 L 47.9 L (83-108) mmHg ABG Hemoglobin 11.9 L 10.5 L (12.0-17.5) ABG Oxyhemoglobin 84.9 L (94-98) ABG Chloride 96.0 L 97.0 L (98-107) mmol/L ABG Glucose 150 H 170 H (65-95) mg/dL Chloride (98-107) mmol/L Carbon Dioxide (22-30) mmol/L BUN (7-17) mg/dL Creatinine (0.6-1.2) mg/dL Glucose (65-100) mg/dL POC Glucose 143 H (70-105) mg/dL Lactic Acid (0.7-2.0) mmol/L Calcium (8.4-10.2) mg/dL Arterial Blood Glucose 150 H 170 H (65-95) mg/dL Arterial Blood Ionized Calcium 4.4 L (4.6-5.3) mg/dL 07/30/20 07/30/20 07/30/20 Range/Units 12: 14:17 15:15 RBC 2.80 L (3.65-5.03) M/mm3 Hgb 9.1 L (10.1-14.3) gm/dl Hct 26.0 L D (30.3-42.9) % MCHC 35 H (30-34) % Plt Count 101 L (140-440) K/mm3 ABG pH (7.320-7.450) POC ABG pCO2 64.6 H (32.0-48.0) mmHg POC ABG pO2 41.0 L (83-108) mmHg ABG Hemoglobin 10.2 L (12.0-17.5) ABG Oxyhemoglobin (94-98) ABG Chloride (98-107) mmol/L ABG Glucose 175 H (65-95) mg/dL Chloride (98-107) mmol/L Carbon Dioxide (22-30) mmol/L BUN (7-17) mg/dL Creatinine (0.6-1.2) mg/dL Glucose (65-100) mg/dL POC Glucose 161 H (70-105) mg/dL Lactic Acid (0.7-2.0) mmol/L Calcium (8.4-10.2) mg/dL Arterial Blood Glucose 175 H (65-95) mg/dL Arterial Blood Ionized Calcium 4.4 L (4.6-5.3) mg/dL 07/30/20 07/30/20 Range/Units 15:15 15:15 RBC (3.65-5.03) M/mm3 Hgb (10.1-14.3) gm/dl Hct (30.3-42.9) % MCHC (30-34) % Plt Count (140-440) K/mm3 ABG pH (7.320-7.450) POC ABG pCO2 (32.0-48.0) mmHg POC ABG pO2 (83-108) mmHg ABG Hemoglobin (12.0-17.5) ABG Oxyhemoglobin (94-98) ABG Chloride (98-107) mmol/L ABG Glucose (65-95) mg/dL Chloride 97.1 L (98-107) mmol/L Carbon Dioxide 32 H D (22-30) mmol/L BUN 39 H (7-17) mg/dL Creatinine 1.3 H D (0.6-1.2) mg/dL Glucose 167 H (65-100) mg/dL POC Glucose (70-105) mg/dL Lactic Acid 2.20 H* (0.7-2.0) mmol/L Calcium 8.0 L (8.4-10.2) mg/dL Arterial Blood Glucose (65-95) mg/dL Arterial Blood Ionized Calcium (4.6-5.3) mg/dL
[2020-07-30 16:41] LABS: Anisocytosis 1+; Basophils % (Manual) 0 % (0.0-1.8); Total Cells Counted 100
[2020-07-30] MEDS: INSULIN GLARGINE 100 UNITS/ML SUB-Q SCH (17:13)
--- NOTE | 2020-07-30 18:06 | Progress Note ---
Assessment and Plan Assessment and plan: -Acute asthma exacerbation on iv steroid Oxygen supplementation as needed Continue montelukast Monitor oxygen saturations closely -- COVID-19 Tested positive for COVID-19 in [place] iv steroid, s/p Remdesivir for 5 days s/p convalescent plasma transfusion Procalcitonin <0.05, ID on board follow ferritin, ldh, d-dimer levels -- Acute hypoxic respiratory failure Now intubated on 07/09/20 overnight From COVID-19 and asthma exacerbation Continue steroids Continue oxygen supplementation -- GERD (gastroesophageal reflux disease) cont Pantoprazole --SLE (systemic lupus erythematosus related syndrome) Continue home medications-hydroxychloroquine -- DVT prophylaxis Lovenox 30 mg twice daily -- Full code status brief History: 50-year-old female with a past medical history of asthma, hypertension, and lupus complains of generalized body weakness, fever and shortness of breath. Patient states the symptoms started right after she was discharged from [place] on 07/05. She has associated wheezing, fever, cough and she has been using her inhalers with no significant effect. She also has associated diarrhea. Of note, she was hospitalized here in [facility] on 06/28 for asthma exacerbation and had a negative Covid test during the admission. She was treated and discharged. She presented to [place] for further evaluation after discharge from here and over there, she was found to have positive COVID-19 test and she was placed on steroids and subsequently discharged on Eliquis prophylaxis for DVT. She states that she did not receive remdesivir during the admission. She was discharged from [place] on 07/05. She went home and felt worse. She said that she passed out about 2 times. Due to persistent symptoms, she called EMS who brought her to [facility] for further evaluation. Daily course: 07/07. Patient seen and examined at bedside this morning. Patient is wheezing and slightly short of breath. Change steroids to Solu-Medrol 60 every 6. Added formoterol and budesonide. ID evaluation pending. Started patient on remdesivir as she is short of breath. 07/07: Placed on BIPAP this AM. Will need pulm evaluation. Solumedrol 60mg q6. STAT blood gas ordered. She will be transferred to [facility]. 07/08: Patient took oxygen off and attempts to go to the bathroom and subsequently became hypoxemic with sats down into the low 80s. Patient became weak short of breath. After that time patient had persistent coughing and cannot maintain sats until nonrebreather was placed. Patient is transferred to the ICU unit and monitored for respiratory failure possibly requiring intubation. 07/09: ID recommended for convalescent plasma, ordered. Patient intubated overnight. Continue to monitor clinically, scheduled lab, follow inflammatory markers 07/10: Wait for convalescent plasma transfusion, wean off from ventilator as tolerated 07/11: Called patient's daughter and updated. Continue to wean off vent as tolerated, continue tube feeding, monitor vital sign CBC BMP daily. 07/12: remains intubated and sedated. follow inflammatory markers - wean off vent as tolerated 07/13: wean off vent as tolerated, cxr in the am. reviewed vitals 07/14: remains intubated, has not received convalescent plasma yet. Reviewed vitals, tolerating tube feeding. Wean off vent per critical care as tolerated. 07/15: cont to provide supportive care, wean off vent as tolerated - difficult to wean off. 07/16: CXR findings improving, cont to wean off vent 07/17: Follow inflammatory markers, monitor off antibiotics. Wean off vent per pulmonary as tolerated 07/18: Wean off vent per pulmonary as tolerated,Follow inflammatory markers, monitor off antibiotics. 07/19: Wean off vent per pulmonary as tolerated,Follow inflammatory markers, monitor off antibiotics. SBT trial 07/20: Wean off vent as tolerated, continue supportive care, follow inflammatory markers 07/21: continue supportive care, follow inflammatory markers, wean off vent as tolerated 07/22: Continue to wean off from ventilator as tolerated per pulmonary recommendation, follow inflammatory markers. Repeat CBC BMP in the morning. We will repeat Covid test tomorrow to see if patient cleared the infection. 07/23. Continue to wean off from ventilator as tolerated per pulmonary recommendation, follow inflammatory markers. Currently AC mode, rate 16, tidal volume 450 with FiO2 75%vand PEEP 14 07/24/2020. Continue ventilatory support with AC mode, rate 16, tidal volume 450, FiO2 100% and PEEP of 16. Continue Brovana and Pulmicort. Continue IV steroids 40 mg IV every 8 hours. Anticoagulation with Lovenox 30 mg twice daily. Patient currently sedated with Versed and fentanyl. 07/25/2020. Continue ventilatory support with AC mode, rate 16, tidal volume 450, FiO2 75% and PEEP of 16. Continue Brovana and Pulmicort. Continue IV steroids 40 mg IV every 8 hours. Anticoagulation with Lovenox 30 mg twice daily. Patient currently sedated with Versed and fentanyl. Continue to wean per pulmonary recommendations. 07/26/2020. Continue ventilatory support with AC mode, rate 16, tidal volume 450, FiO2 85% and PEEP of 16. Continue Brovana and Pulmicort. Continue IV steroids 40 mg IV every 8 hours. Anticoagulation with Lovenox 30 mg twice daily. Patient currently sedated with Versed and fentanyl. Continue to wean per protocol. 07/27/2020. Continue ventilatory support with AC mode, rate 16, tidal volume 450, FiO2 100% and PEEP of 16. Patient with increased oxygen requirements the past couple of days. Continue Brovana and Pulmicort. Continue IV steroids 40 mg IV every 8 hours. Anticoagulation with Lovenox 30 mg twice daily. Patient currently sedated with Versed and fentanyl. Dose of Lasix given by pulmonary yesterday to achieve negative fluid balance. Follow-up serial chest x-ray 07/28/2020. Continue ventilatory support with AC mode, rate 16, tidal volume 450, FiO2 100% and PEEP of 16. Wean FiO2 per protocol. Continue Brovana and Pulmicort. Continue IV steroids 40 mg IV every 8 hours. Anticoagulation with Lovenox 30 mg twice daily. Patient currently sedated with Versed and fentanyl. 07/29/2020. Continue ventilatory support with AC mode, rate 16, tidal volume 450, FiO2 100% and PEEP of 16. Wean FiO2 per protocol. Continue Brovana and Pulmicort. Continue IV steroids 40 mg IV every 8 hours. Anticoagulation with Lovenox 30 mg twice daily. Wean sedation as tolerated. 07/30. Continue ventilatory support with AC mode, rate 16, tidal volume 450, FiO2 100% and PEEP of 16. Wean FiO2 per protocol. Continue Brovana and Pulmicort. Continue IV steroids 40 mg IV every 8 hours. Anticoagulation with Lovenox 30 mg twice daily. Wean sedation as tolerated. The high probability of a clinically significant, sudden or life threatening deterioration of the [[employer], respiratory, RECEIVING MANAGER] system(s) required my full and direct attention, intervention and personal management. The aggregate critical care time was [32] minutes. This time is in addition to time spent performing reported procedures but includes the following: [x] Data Review and interpretation [x] Patient assessment and monitoring of vital signs [x] Documentation [x] Medication orders and management - Patient Problems (1) COVID-19 Current Visit: Yes Status: Acute (2) Acute respiratory failure Current Visit: No Status: Acute Qualifiers: Respiratory failure complication: unspecified whether with hypoxia or h ypercapnia Qualified Code(s): J96.00 - Acute respiratory failure, unspecified whether with hypoxia or hypercapnia (3) GERD (gastroesophageal reflux disease) Current Visit: No Status: Chronic Qualifiers: Esophagitis presence: without esophagitis Qualified Code(s): K21.9 - Gastro-esophageal reflux disease without esophagitis (4) SLE (systemic lupus erythematosus related syndrome) Current Visit: No Status: Chronic (5) DVT prophylaxis Current Visit: No Status: Acute (6) Full code status Current Visit: No Status: Acute History Interval history: Intubated, sedated and on paralytics. Hospitalist Physical - Physical exam Narrative exam: VITAL SIGNS: Reviewed. GENERAL: Sedated and intubated HEAD: No signs of head trauma. EYES: Pupils are equal. Extraocular motions intact. MOUTH: Oropharynx is normal. NECK: No adenopathy, no JVD. CHEST: Diffuse expiratory wheezes CARDIAC: Normal S1 and S2, without murmurs, gallops, or rubs. VASCULAR: trace edema ABDOMEN: Soft, non tender and non distended. Bowel Sounds normal. NEUROLOGIC EXAM: Sedated SKIN: No obvious lesions - Constitutional Vitals: Temp Pulse Resp BP Pulse Ox 100.1 F H 107 H 24 92/47 89 07/30/20 16:00 07/30/20 17:15 07/30/20 17:15 07/30/20 17:15 07/30/20 17:15 Results - Labs CBC & Chem 7: 07/30/20 15:15 07/30/20 15:15 Labs: Laboratory Last Values WBC 6.0 K/mm3 (4.5-11.0) 07/30/20 15:15 RBC 2.80 M/mm3 (3.65-5.03) L 07/30/20 15:15 Hgb 9.1 gm/dl (10.1-14.3) L 07/30/20 15:15 Hct 26.0 % (30.3-42.9) L D 07/30/20 15:15 MCV 93 fl (79-97) 07/30/20 15:15 MCH 32 pg (28-32) 07/30/20 15:15 MCHC 35 % (30-34) H 07/30/20 15:15 RDW 15.2 % (13.2-15.2) 07/30/20 15:15 Plt Count 101 K/mm3 (140-440) L 07/30/20 15:15 Lymph % (Auto) 4.2 % (13.4-35.0) L 07/26/20 14:23 [place] % (Auto) 4.8 % (0.0-7.3) 07/26/20 14:23 Eos % (Auto) 0.8 % (0.0-4.3) 07/26/20 14:23 Baso % (Auto) 0.4 % (0.0-1.8) 07/26/20 14:23 Lymph # (Auto) 0.5 K/mm3 (1.2-5.4) L 07/26/20 14:23 [place] # (Auto) 0.6 K/mm3 (0.0-0.8) 07/26/20 14:23 Eos # (Auto) 0.1 K/mm3 (0.0-0.4) 07/26/20 14:23 Baso # (Auto) 0.1 K/mm3 (0.0-0.1) 07/26/20 14:23 Add Manual Diff Complete 07/30/20 15:15 Total Counted 100 07/30/20 15:15 Seg Neutrophils % Rotary Drum Tanner 07/30/20 15:15 Seg Neuts % (Manual) 90.0 % (40.0-70.0) H 07/30/20 15:15 Band Neutrophils % 0 % 07/30/20 15:15 Lymphocytes % (Manual) 7.0 % (13.4-35.0) L 07/30/20 15:15 Reactive Lymphs % (Man) 0 % 07/30/20 15:15 Monocytes % (Manual) 2.0 % (0.0-7.3) 07/30/20 15:15 Eosinophils % (Manual) 1.0 % (0.0-4.3) 07/30/20 15:15 Basophils % (Manual) 0 % (0.0-1.8) 07/30/20 15:15 Metamyelocytes % 0 % 07/30/20 15:15 Myelocytes % 0 % 07/30/20 15:15 Promyelocytes % 0 % 07/30/20 15:15 Blast Cells % 0 % 07/30/20 15:15 Nucleated RBC % Not Reportable 07/30/20 15:15 Seg Neutrophils # 10.8 K/mm3 (1.8-7.7) H 07/26/20 14:23 Seg Neutrophils # Man 5.4 K/mm3 (1.8-7.7) 07/30/20 15:15 Band Neutrophils # 0.0 K/mm3 07/30/20 15:15 Lymphocytes # (Manual) 0.4 K/mm3 (1.2-5.4) L 07/30/20 15:15 Abs React Lymphs (Man) 0.0 K/mm3 07/30/20 15:15 Monocytes # (Manual) 0.1 K/mm3 (0.0-0.8) 07/30/20 15:15 Eosinophils # (Manual) 0.1 K/mm3 (0.0-0.4) 07/30/20 15:15 Basophils # (Manual) 0.0 K/mm3 (0.0-0.1) 07/30/20 15:15 Metamyelocytes # 0.0 K/mm3 07/30/20 15:15 Myelocytes # 0.0 K/mm3 07/30/20 15:15 Promyelocytes # 0.0 K/mm3 07/30/20 15:15 Blast Cells # 0.0 K/mm3 07/30/20 15:15 WBC Morphology Not Reportable 07/30/20 15:15 Hypersegmented Neuts Not Reportable 07/30/20 15:15 Hyposegmented Neuts Not Reportable 07/30/20 15:15 Hypogranular Neuts Not Reportable 07/30/20 15:15 Smudge Cells Not Reportable 07/30/20 15:15 Toxic Granulation Not Reportable 07/30/20 15:15 Toxic Vacuolation Not Reportable 07/30/20 15:15 Dohle Bodies Not Reportable 07/30/20 15:15 Pelger-Huet Anomaly Not Reportable 07/30/20 15:15 [place] Rods Not Reportable 07/30/20 15:15 Platelet Estimate Not Reportable 07/30/20 15:15 Clumped Platelets Not Reportable 07/30/20 15:15 Plt Clumps, EDTA Not Reportable 07/30/20 15:15 Large Platelets Not Reportable 07/30/20 15:15 Giant Platelets Not Reportable 07/30/20 15:15 Platelet Satelliting Not Reportable 07/30/20 15:15 Plt Morphology Comment Not Reportable 07/30/20 15:15 RBC Morphology Not Reportable 07/30/20 15:15 Dimorphic RBCs Not Reportable 07/30/20 15:15 Polychromasia Not Reportable 07/30/20 15:15 Hypochromasia Not Reportable 07/30/20 15:15 Poikilocytosis Not Reportable 07/30/20 15:15 Anisocytosis 1+ 07/30/20 15:15 Microcytosis Not Reportable 07/30/20 15:15 Macrocytosis Not Reportable 07/30/20 15:15 Spherocytes Not Reportable 07/30/20 15:15 Pappenheimer Bodies Not Reportable 07/30/20 15:15 Sickle Cells Not Reportable 07/30/20 15:15 Target Cells Not Reportable 07/30/20 15:15 Tear Drop Cells Not Reportable 07/30/20 15:15 Ovalocytes Not Reportable 07/30/20 15:15 Helmet Cells Not Reportable 07/30/20 15:15 [place] Bodies Not Reportable 07/30/20 15:15 [place] Rings Not Reportable 07/30/20 15:15 [place] Cells Not Reportable 07/30/20 15:15 Bite Cells Not Reportable 07/30/20 15:15 Crenated Cell Not Reportable 07/30/20 15:15 Elliptocytes Not Reportable 07/30/20 15:15 Acanthocytes (Spur) Not Reportable 07/30/20 15:15 Rouleaux Not Reportable 07/30/20 15:15 Hemoglobin C Crystals Not Reportable 07/30/20 15:15 Schistocytes Not Reportable 07/30/20 15:15 Malaria parasites Not Reportable 07/30/20 15:15 Junaid Bodies Not Reportable 07/30/20 15:15 Hem Pathologist Commnt No 07/30/20 15:15 D-Dimer 826.36 ng/mlDDU (0-234) H 07/13/20 07:20 ABG pH 7.358 (7.320-7.450) 07/30/20 14:17 POC ABG pCO2 64.6 mmHg (32.0-48.0) H 07/30/20 14:17 ABG pCO2 81.7 mm Hg 07/28/20 04:15 POC ABG pO2 41.0 mmHg (83-108) L 07/30/20 14:17 ABG pO2 130.3 mm Hg (80.0-90.0) H 07/28/20 04:15 POC ABG HCO3 35.5 07/30/20 14:17 ABG HCO3 40.9 mmol/L (20.0-26.0) H 07/28/20 04:15 ABG O2 Saturation 98.1 % (95.0-99.0) 07/28/20 04:15 ABG O2 Content 8.2 (0.0-44) 07/28/20 04:15 POC ABG Base Excess 8.4 07/30/20 14:17 ABG Base Excess 13.5 mmol/L (-2.0-3.0) H 07/28/20 04:15 ABG Hemoglobin 10.2 (12.0-17.5) L 07/30/20 14:17 ABG Oxyhemoglobin 84.9 (94-98) L 07/30/20 08:18 ABG Carboxyhemoglobin 1.7 % (0.0-5.0) 07/28/20 04:15 ABG Methemoglobin 0.3 (0.0-1.5) 07/30/20 08:18 ABG Sodium 137.9 mmol/L (136.0-145.0) 07/30/20 14:17 ABG Potassium 4.1 mmol/L (3.40-4.50) 07/30/20 14:17 ABG Chloride 98.0 mmol/L (98-107) 07/30/20 14:17 ABG Glucose 175 mg/dL (65-95) H 07/30/20 14:17 Oxyhemoglobin 95.8 % (95.0-99.0) 07/28/20 04:15 Carboxyhemoglobin 0.8 (0.5-1.5) 07/30/20 08:18 FiO2 100 07/30/20 14:17 Sodium 139 mmol/L (137-145) 07/30/20 15:15 Potassium 4.3 mmol/L (3.6-5.0) 07/30/20 15:15 Chloride 97.1 mmol/L (98-107) L 07/30/20 15:15 Carbon Dioxide 32 mmol/L (22-30) H D 07/30/20 15:15 Anion Gap 14 mmol/L 07/30/20 15:15 BUN 39 mg/dL (7-17) H 07/30/20 15:15 Creatinine 1.3 mg/dL (0.6-1.2) H D 07/30/20 15:15 Estimated GFR 53 ml/min 07/30/20 15:15 BUN/Creatinine Ratio 30 % 07/30/20 15:15 Glucose 167 mg/dL (65-100) H 07/30/20 15:15 POC Glucose 171 mg/dL (70-105) H 07/30/20 17:03 Lactic Acid 2.20 mmol/L (0.7-2.0) H* 07/30/20 15:15 Calcium 8.0 mg/dL (8.4-10.2) L 07/30/20 15:15 Phosphorus 3.20 mg/dL (2.5-4.5) 07/08/20 16:13 Magnesium 2.20 mg/dL (1.7-2.3) 07/08/20 16:13 Ferritin 219.8 ng/mL (10.0-200.0) H 07/13/20 07:20 Total Bilirubin 0.20 mg/dL (0.1-1.2) 07/13/20 07:20 AST 14 units/L (5-40) 07/13/20 07:20 ALT 13 units/L (7-56) 07/13/20 07:20 Alkaline Phosphatase 53 units/L (35-129) 07/13/20 07:20 Lactate Dehydrogenase 531 units/L (91-180) H 07/15/20 09:00 C-Reactive Protein 1.80 mg/dL (0.00-1.30) H 07/13/20 07:20 Total Protein 5.8 g/dL (6.3-8.2) L 07/13/20 07:20 Albumin 3.2 g/dL (3.9-5) L 07/13/20 07:20 Albumin/Globulin Ratio 1.2 % 07/13/20 07:20 Triglycerides 837 mg/dL (2-149) H 07/30/20 15:15 Procalcitonin < 0.05 ng/mL (<0.15) 07/10/20 12:10 Arterial Blood Glucose 175 mg/dL (65-95) H 07/30/20 14:17 Arterial Blood Ionized Calcium 4.4 mg/dL (4.6-5.3) L 07/30/20 14:17 Urine Color Yellow (Yellow) 07/11/20 09:30 Urine Turbidity Clear (Clear) 07/11/20 09:30 Urine pH 5.0 (5.0-7.0) 07/11/20 09:30 Ur Specific [place] 1.028 (1.003-1.030) 07/11/20 09:30 Urine Protein <15 mg/dl mg/dL (Negative) 07/11/20 09:30 Urine Glucose (UA) Neg mg/dL (Negative) 07/11/20 09:30 Urine Ketones Neg mg/dL (Negative) 07/11/20 09:30 Urine Blood Neg (Negative) 07/11/20 09:30 Urine Nitrite Neg (Negative) 07/11/20 09:30 Urine Bilirubin Neg (Negative) 07/11/20 09:30 Urine Urobilinogen 2.0 mg/dL (<2.0) 07/11/20 09:30 Ur Leukocyte Esterase Neg (Negative) 07/11/20 09:30 Urine WBC (Auto) 1.0 /HPF (0.0-6.0) 07/11/20 09:30 Urine RBC (Auto) 1.0 /HPF (0.0-6.0) 07/11/20 09:30 U Epithel Cells (Auto) 1.0 /HPF (0-13.0) 07/11/20 09:30 Urine Mucus Few /HPF 07/11/20 09:30 Coronavirus (PCR) Positive (Negative) A 07/23/20 Unknown SARS-CoV-2 IgG Ab Reactive (NonReactive) A 07/15/20 14:30 Blood Type O POSITIVE 07/09/20 15:30 Antibody Screen Negative 07/09/20 15:30 Microbiology: Microbiology 07/27/20 14:18 Peripheral/Venous Blood Culture - Preliminary NO GROWTH AFTER 72 HOURS 07/27/20 14:18 Peripheral/Venous Blood Culture - Preliminary NO GROWTH AFTER 72 HOURS - Diagnostic Impressions Diagnostic Impressions: Echocardiogram 07/19/20 13:13 Transthoracic Echocardiogram Indication: CHF BP: 106/58 Conclusions *The left ventricular systolic function is within normal limits. There are no wall motion abnormalities observed. *The estimated ejection fraction is 60-65%. *Normal left ventricular diastolic filling is observed. Findings Procedure Info: The study quality is fair. Left Ventricle: The left ventricular chamber size, wall thickness and systolic function are within normal limits. There are no wall motion abnormalities observed. Ejection fraction is normal. The estimated ejection fraction is 60-65%. Normal left ventricular diastolic filling is observed. Left Atrium: The left atrium is normal in size with no visual thrombus identified. Right Ventricle: The right ventricular chamber size and systolic function are within normal limits. Right Atrium: The right atrium appears normal. Aortic Valve: The aortic valve is trileaflet. The leaflets are thin with normal excursion. There is no aortic stenosis or regurgitation present. Mitral Valve: The mitral valve leaflets are mildly thickened. There is trace of mitral regurgitation. There is no evidence of mitral stenosis. Tricuspid Valve: The tricuspid valve leaflets are normal. There is trace tricuspid regurgitation. The right ventricular systolic pressure is calculated at 14 mmHg. There is no tricuspid stenosis. Pulmonic Valve: The pulmonic valve appears normal. There is mild pulmonic regurgitation. There is no pulmonic stenosis. Pericardium: The pericardium appears normal. Aorta: The aorta appears normal. Pulmonary Artery: The main pulmonary artery appears normal. Venous: The inferior vena cava appears normal in size. There is a greater than 50% respiratory change in the inferior vena cava dimension. Measurements Chambers 2D Name Value Normal Range IVSd (2D) 1.08 cm (0.6 - 1.1) LVPWd (2D) 0.91 cm (0.6 - 1.1) LVIDd (2D) 4.61 cm (3.7 - 5.6) LVIDs (2D) 3.12 cm (2 - 3.8) LV FS (2D) 32.38 % - EF Teichholz (2D) 60.72 % - Ao root diameter (2D) 3.01 cm (2 - 3.7) Volumes/Mass Name Value Normal Range LA ESV SP 4CH (A/L) 57.18 ml - LA ESV SP 2CH (A/L) 62.63 ml - LA ESV BP (A/L) 60.68 ml - LA ESV BP (A/L) index 28.22 ml/m2 - LA ESV SP 4CH (MOD) 51.17 ml - LA ESV SP 2CH (MOD) 57.8 ml - LA ESV BP (MOD) 54.73 ml - LA ESV BP (MOD) index 25.45 ml/m2 - LV EDV SP 4CH (MOD) 115.34 ml - LV ESV SP 4CH (MOD) 43.26 ml - EF SP 4CH (MOD) 62.5 % - LV EDV SP 2CH (MOD) 43.71 ml - LV ESV SP 2CH (MOD) 17.14 ml - EF SP 2CH (MOD) 60.79 % - LV EDV BP 73.15 ml - LV ESV BP 27.92 ml - BP EF (MOD) 61.83 % - Diastolic/Systolic Function Name Value Normal Range MV E-wave Vmax 0.88 m/sec - MV deceleration time 157.66 msec - MV A-wave Vmax 0.91 m/sec - MV E:A ratio 0.96 ratio - Aortic Valve Name Value Normal Range AV Vmax 1.54 m/sec - AV VTI 31.46 cm - AV peak gradient 9.51 mmHg - AV mean gradient 5.1 mmHg - LVOT diameter 1.95 cm - LVOT Vmax 1.21 m/sec - LVOT VTI 27.59 cm - LVOT peak gradient 5.83 mmHg - LVOT mean gradient 3.3 mmHg - SV LVOT 82.76 ml - SMITH (continuity Vmax) 2.35 cm2 - SMITH (continuity VTI) 2.63 cm2 - Ascending Ao 2.94 cm - Tricuspid Valve Name Value Normal Range TV E-wave Vmax 0.49 m/sec - TR Vmax 1.72 m/sec - TR peak gradient 11.86 mmHg - RAP 3 mmHg - RVSP 14 mmHg - IVC diameter 1.91 cm (1.2 - 2.3) Pulmonic Valve/Qp:Qs Name Value Normal Range PV Vmax 0.94 m/sec - PV peak gradient 3.54 mmHg - TN end-diastolic Vmax 0.54 m/sec - RVOT Vmax 0.68 m/sec - RVOT VTI 13.18 cm - RVOT peak gradient 1.82 mmHg - PV acceleration time 117.98 msec - [place]/IV: Voiding Method Indwelling Catheter IV Catheter Type [Left Upper PICC Line arm] IV Catheter Type [Right INT / Saline Lock Forearm] IV Catheter Type [Left Wrist] INT / Saline Lock IV Catheter Type [Left Hand] Peripheral IV Active Medications - Current Medications Current Medications: Generic Name Dose Route Start Last Admin Trade Name Freq PRN Reason Stop Dose Admin Acetaminophen 650 mg 07/06/20 13:39 07/27/20 18:34 Tylenol PO 650 mg Q4H PRN Administration Pain MILD(1-3)/Fever >100.5/WILLETT Albuterol/Ipratropium 1 ampul 07/26/20 14:00 07/30/20 14:36 Duoneb *Not For Prn Use* IH Not Given TIDRT ROMMEL Alprazolam 0.5 mg 07/07/20 12:28 07/27/20 03:15 Xanax PO 0.5 mg Q8H PRN Administration Anxiety Lipase/Protease/Amylase 1 each 07/08/20 14:50 Pancreazchristina Price 10,500 Unit FEEDTUBE PRN PRN For Clogged Feeding Tube Arformoterol Tartrate 15 mcg 07/07/20 09:15 07/30/20 08:26 Brovana Nebu IH 15 mcg Q12HRT ROMMEL Administration Ascorbic Acid 500 mg 07/08/20 22:00 07/30/20 10:47 Vitamin C PO 500 mg BID ROMMEL Administration Aspirin 81 mg 07/06/20 14:00 07/30/20 10:47 Baby Aspirin PO 81 mg QDAY ROMMEL Administration Budesonide 0.5 mg 07/07/20 09:15 07/30/20 08:27 Pulmicort IH 0.5 mg Q12HRT ROMMEL Administration Chlordiazepoxide HCl 75 mg 07/30/20 13:00 07/30/20 13:39 Librium PO 75 mg Q8H ROMMEL Administration Dextrose 50 ml 07/12/20 16:58 D50w (25gm) Syringe IV Q30MIN PRN Hypoglycemia Protocol Docusate Sodium 100 mg 07/16/20 22:00 07/30/20 10:47 Colace PO 100 mg BID ROMMEL Administration Enoxaparin Sodium 30 mg 07/06/20 15:00 07/30/20 10:48 Enoxaparin SUB-Q 30 mg BID ROMMEL Administration Protocol Fentanyl 50 mcg 07/08/20 13:16 07/29/20 15:45 Sublimaze IV 50 mcg Q10MIN PRN Administration ANALGESIA Gabapentin 600 mg 07/25/20 14:00 07/30/20 13:40 Gabapentin PO 600 mg Q8HR ROMMEL Administration Hydrophilic Ointment 1 applic 07/08/20 13:16 07/22/20 23:01 Vaseline Lip Therapy TP 1 applic Q2HR PRN Administration Dry Lips Hydroxychloroquine Sulfate 200 mg 07/07/20 10:00 07/30/20 10:47 Plaquenil PO 200 mg QDAY ROMMEL Administration Fentanyl Citrate 2,000 mcg in 100 mls @ 4.825 mls/hr 07/08/20 14:00 07/30/20 15:02 Fentanyl Drip Premix IV 4 mcg/kg/hr TITR ROMMEL 19.3 mls/hr Administration Protocol 1 MCG/KG/HR Midazolam HCl 100 mg/ Sodium 100 mls @ 2 mls/hr 07/08/20 15:00 07/30/20 11:30 Chloride IV 3 mg/hr TITR ROMMEL 3 mls/hr Titration Protocol 2 MG/HR Sodium Chloride 500 mls @ 10 mls/hr 07/15/20 15:00 Nacl 0.9% 500 Ml IV DIRECT ROMMEL Norepinephrine 4 mg in 250 mls @ 7.5 mls/hr 07/27/20 05:00 Levophed Drip 4 Mg/Ns 250 Ml IV TITR ROMMEL Protocol 2 MCG/MIN Vancomycin HCl 2,000 mg/ 540 mls @ 250 mls/hr 07/29/20 22:00 07/30/20 10:50 Sodium Chloride IV 250 mls/hr Q12H ROMMEL Administration Propofol 500 mg in 50 mls @ 2.946 mls/hr 07/30/20 11:00 07/30/20 16:45 Propofol IV 50 mcg/kg/min TITR ROMMEL 29.46 mls/hr Administration Protocol 5 MCG/KG/MIN Dexmedetomidine HCl 400 mcg/ 104 mls @ 5.106 mls/hr 07/30/20 13:00 Sodium Chloride IV 08/01/20 12:59 TITRATE ROMMEL Protocol 0.2 MCG/KG/HR Vasopressin 20 unit/ Sodium 101 mls @ 9.09 mls/hr 07/30/20 13:00 07/30/20 14:08 Chloride IV 0.03 units/min TITR ROMMEL 9.09 mls/hr Administration Protocol 0.03 UNITS/MIN Cefepime HCl 2 gm in 100 mls @ 200 mls/hr 07/30/20 14:00 07/30/20 13:50 Cefepime/Ns 2 Gm/100 Ml IV 200 mls/hr Q8HR ROMMEL Administration Phenylephrine HCl 100 mg/ 100 mls @ 3 mls/hr 07/30/20 15:00 07/30/20 18:00 Sodium Chloride IV 150 mcg/min TITR ROMMEL 9 mls/hr Titration Protocol 50 MCG/MIN Insulin Glargine 5 units 07/12/20 17:00 07/30/20 17:13 Lantus SUB-Q Not Given Q24H [facility] Insulin Human Regular 0 unit 07/12/20 17:00 07/30/20 17:09 Humulin R SUB-Q 1 unit Q6H ROMMEL Administration Protocol Lansoprazole 30 mg 07/10/20 10:00 07/30/20 10:47 Prevacid Solutab FEEDTUBE 30 mg QDAY ROMMEL Administration Methylprednisolone Sodium Succinate 40 mg 07/22/20 14:00 07/30/20 14:03 Solu-Medrol IV 40 mg Q8H ROMMEL Administration Multi-Ingred Cream/Lotion/Oil/Oint 1 applic 07/08/20 13:16 Artificial Tears Ophth Oint OU Q4HR PRN Dry Eye(s) Ondansetron HCl 4 mg 07/06/20 13:39 07/08/20 10:44 Zofran IV 4 mg Q8H PRN Administration Nausea And Vomiting Polyethylene Glycol 17 gm 07/29/20 12:00 07/30/20 10:47 Miralax 3350 PO 17 gm DAILY ROMMEL Administration Pseudoephedrine/Acetam/Chlorphenir 10 ml 07/07/20 01:17 07/08/20 08:30 Robitussin Ac PO 10 ml Q4H PRN Administration Cough Quetiapine Fumarate 200 mg 07/25/20 22:00 07/30/20 10:47 Seroquel PO 200 mg BID ROMMEL Administration Quetiapine Fumarate 100 mg 07/25/20 22:00 07/30/20 10:47 Seroquel PO 100 mg BID ROMMEL Administration Simple Syrup 15 ml 07/08/20 14:50 Simple Syrup FEEDTUBE PRN PRN Hypoglycemia Simple Syrup 30 ml 07/08/20 14:50 Simple Syrup FEEDTUBE PRN PRN Hypoglycemia Sodium Bicarbonate 325 mg 07/08/20 14:50 Sodium Bicarbonate FEEDTUBE PRN PRN For Clogged Feeding Tube Sodium Chloride 10 ml 07/06/20 14:00 07/30/20 10:48 Sodium Chloride Flush Syringe 10 Ml IV 10 ml BID ROMMEL Administration Sodium Chloride 10 ml 07/06/20 13:39 07/26/20 06:31 Sodium Chloride Flush Syringe 10 Ml IV 10 ml PRN PRN Administration LINE FLUSH Venlafaxine HCl 37.5 mg 07/07/20 10:00 07/30/20 10:47 Effexor PO 37.5 mg DAILY ROMMEL Administration Zinc Sulfate 220 mg 07/08/20 22:00 07/30/20 10:47 Zinc Sulfate PO 220 mg BID ROMMEL Administration Nutrition/Malnutrition Assess - Dietary Evaluation Nutrition/Malnutrition Findings: Nutrition Notes Start: 07/08/20 14:02 Freq: Status: Active Protocol: Document 07/27/20 08:58 (Rec: 07/27/20 09:54 [email or web address]) Nutrition Notes Need for Assessment generated from: MD Order Initial or Follow up Reassessment Current Diagnosis Hypertension,Heart Failure Other Pertinent Diagnosis Acute respiratory failure, COVID(+), GERD, Lupus Current Diet Vital AF 1.2 at 55 mL/hr (goal rate) Labs/Tests Reviewed Pertinent Medications Propofol Fentanyl Solu-medrol Zinc Sulfate Vitamin C Height 5 ft 5 in Weight 102.2 kg [place] Body Weight (kg) 56.81 BMI 37.5 Weight Status Obese Subjective/Other Information MD consult for TF. Pt receiving Vital AF 1.2 at 10ml /hr. Per RN, pt is proned and will be for 2 more days. Percent of energy/protein needs met: 17%/16% Burn Absent Trauma Absent GI Symptoms None Current % PO Negligible Minimum of two criteria No physical signs of malnutrition #1 Nutrition Diagnosis Inadequate oral intake Diagnosis Progress(for reassessment Continues documentation) Is patient on ventilator? Yes Is Patient Ambulatory and/or Out of Bed No REE-([place]-confined to bed) 1986.828 Kcal/Kg value to use for calculation 16 Approximate Energy Requirements Using 1635 kcal/Kg Calculation Used for Recommendations Kcal/kg Additional Notes Pro: greater than 114 g (>2 g/ kg IBW) Fluid: 1ml/kcal or per MD Nutrition Intervention Change Diet Order: Continue TF Nutrition Support: Vital AF at 55 ml/hr Flush 75 ml q4h 16 hr prone: Vital AF 1.2 at 10 ml for 16hr . Flush 50 ml q4h. For remaining 8 hours, Vital AF 1.2 at 135 ml/hr. Flush 125 ml q4h. Kcal 1,584 Protein (gm) 99 Fluid (mL) 1,070 Goal #1 Meet at least 80% of protein and energy needs via TF Anticipated Discharge Needs: Cannot determine at this time Follow-Up By: 08/01/20 Additional Comments Follow for TF tolerance
[2020-07-30] MEDS: MIDAZOLAM 100 MG in SODIUM CHLORIDE 0.9% 80 ML IV SCH (21:48)
[2020-07-31] MEDS: VASOPRESSIN 20 UNIT in SODIUM CHLORIDE 0.9% 100 ML IV SCH ×3 (00:05→21:12)
[2020-07-31] MEDS: PHENYLEPHRINE 100 MG in SODIUM CHLORIDE 0.9% 90 ML IV SCH ×3 (00:32→14:57)
[2020-07-31] MEDS: PROPOFOL 500 MG/50 ML VIAL IV SCH ×12 (00:34→17:47)
[2020-07-31] MEDS: fentaNYL DRIP Premix 2,000 MCG/100 ML BAG IV SCH ×5 (00:49→20:41)
[2020-07-31] MEDS: methylPREDNISolone Sod Succinate 40 MG/1 ML INJ IV SCH ×3 (05:31→21:59)
[2020-07-31] MEDS: GABAPENTIN 300 MG CAP PO SCH ×3 (05:31→21:59)
[2020-07-31] MEDS: chlordiazePOXIDE 25 MG CAP PO SCH ×3 (05:31→21:00)
[2020-07-31] MEDS: INSULIN REGULAR, HUMAN 100 UNIT/ML 3ML VIAL SUB-Q SCH ×3 (05:32→17:47)
[2020-07-31] MEDS: CEFEPIME/NS 2 GM/100 ML 2 GM/100 ML BAG IV SCH ×3 (05:32→21:59)
[2020-07-31 06:01] LABS: Hematocrit 27.6 % (30.3-42.9); Hemoglobin 9.2 gm/dl (10.1-14.3); Mean Corpuscular HGB Conc 33 % (30-34); Mean Corpuscular Volume 91 fl (79-97); Platelet Count 118 K/mm3 (140-440); Red Blood Count 3.03 M/mm3 (3.65-5.03)
[2020-07-31 06:11] LABS: Albumin 2.2 g/dL (3.9-5); Calcium 8.3 mg/dL (8.4-10.2)
[2020-07-31 06:13] LABS: Basophils % (Auto) 0.1 % (0.0-1.8); Eosinophils % (Auto) 0.3 % (0.0-4.3); Lymphocytes # (Auto) 0.5 K/mm3 (1.2-5.4); Lymphocytes % (Auto) 6.3 % (13.4-35.0); Monocytes # (Auto) 0.2 K/mm3 (0.0-0.8); Monocytes % (Auto) 2.1 % (0.0-7.3)
[2020-07-31] MEDS ORDERED: ATROPINE 1 MG/ML VIAL IV ONE (08:30)
[2020-07-31] MEDS: BUDESONIDE 0.5 MG/2 ML NEBU IH SCH (08:52)
[2020-07-31] MEDS: ARFORMOTEROL 15 MCG/2 ML NEBU IH SCH (08:52)
[2020-07-31] MEDS: IPRATROPIUM/ALBUTEROL SULFATE 3 ML AMPUL.NEB IH SCH ×2 (08:52→14:23)
[2020-07-31] MEDS: SODIUM CHLORIDE 0.9% 1000 ML 1,000 ML IV SCH ×2 (09:54→21:59)
[2020-07-31] MEDS: VENLAFAXINE 37.5 MG TAB PO SCH (09:55)
[2020-07-31] MEDS: HYDROXYCHLOROQUINE 200 MG TAB PO SCH (09:55)
[2020-07-31] MEDS: QUEtiapine 200 MG TAB PO SCH ×2 (09:55→21:59)
[2020-07-31] MEDS: ASPIRIN 81 MG TAB CHEW PO SCH (09:55)
[2020-07-31] MEDS: QUEtiapine 100 MG TAB PO SCH ×2 (09:55→21:59)
[2020-07-31] MEDS: DOCUSATE SODIUM 100 MG/10 ML ORAL LIQD PO SCH ×2 (09:55→21:22)
[2020-07-31] MEDS: ENOXAPARIN 30 MG/0.3 ML INJ SUB-Q SCH ×2 (09:55→22:00)
[2020-07-31] MEDS: ZINC SULFATE 220 MG CAP PO SCH ×2 (09:56→21:59)
[2020-07-31] MEDS: ASCORBIC ACID 500 MG TAB PO SCH ×2 (09:56→22:00)
[2020-07-31] MEDS: POLYETHYLENE GLYCOL 3350 17 GM POWDER PO SCH (09:56)
[2020-07-31] MEDS: LANSOPRAZOLE 30 MG SOLUTAB FEEDTUBE SCH (11:33)
--- NOTE | 2020-07-31 13:55 | Progress Note ---
Assessment and Plan Assessment and plan: --Acute asthma exacerbation on iv steroid Oxygen supplementation as needed Continue montelukast Monitor oxygen saturations closely --COVID-19 Tested positive for COVID-19 in [place] iv steroid, s/p Remdesivir for 5 days s/p convalescent plasma transfusion Procalcitonin <0.05, ID on board follow ferritin, ldh, d-dimer levels -- Acute hypoxic respiratory failure Now intubated on 07/09/20 overnight From COVID-19 and asthma exacerbation Continue steroids Continue oxygen supplementation -- GERD (gastroesophageal reflux disease) cont Pantoprazole --SLE (systemic lupus erythematosus related syndrome) Continue home medications-hydroxychloroquine -- DVT prophylaxis Lovenox 30 mg twice daily -- Full code status brief History: 50-year-old female with a past medical history of asthma, hypertension, and lupus complains of generalized body weakness, fever and shortness of breath. Patient states the symptoms started right after she was discharged from [place] on 07/05. She has associated wheezing, fever, cough and she has been using her inhalers with no significant effect. She also has associated diarrhea. Of note, she was hospitalized here in [facility] on 06/28 for asthma exacerbation and had a negative Covid test during the admission. She was treated and discharged. She presented to [place] [facility] for further evaluation after discharge from here and over there, she was found to have positive COVID-19 test and she was placed on steroids and subsequently discharged on Eliquis prophylaxis for DVT. She states that she did not receive remdesivir during the admission. She was discharged from [place] [facility] on 07/05. She went home and felt worse. She said that she passed out about 2 times. Due to persistent symptoms, she called EMS who brought her to [facility] for further evaluation. Daily course: 07/07. Patient seen and examined at bedside this morning. Patient is wheezing and slightly short of breath. Change steroids to Solu-Medrol 60 every 6. Added formoterol and budesonide. ID evaluation pending. Started patient on remdesivir as she is short of breath. 07/07: Placed on BIPAP this AM. Will need pulm evaluation. Solumedrol 60mg q6. STAT blood gas ordered. She will be transferred to [facility]. 07/08: Patient took oxygen off and attempts to go to the bathroom and subse quently became hypoxemic with sats down into the low 80s. Patient became weak short of breath. After that time patient had persistent coughing and cannot maintain sats until nonrebreather was placed. Patient is transferred to the ICU unit and monitored for respiratory failure possibly requiring intubation. 07/09: ID recommended for convalescent plasma, ordered. Patient intubated overnight. Continue to monitor clinically, scheduled lab, follow inflammatory markers 07/10: Wait for convalescent plasma transfusion, wean off from ventilator as tolerated 07/11: Called patient's daughter and updated. Continue to wean off vent as tolerated, continue tube feeding, monitor vital sign CBC BMP daily. 07/12: remains intubated and sedated. follow inflammatory markers - wean off vent as tolerated 07/13: wean off vent as tolerated, cxr in the am. reviewed vitals 07/14: remains intubated, has not received convalescent plasma yet. Reviewed vitals, tolerating tube feeding. Wean off vent per critical care as tolerated. 07/15: cont to provide supportive care, wean off vent as tolerated - difficult to wean off. 07/16: CXR findings improving, cont to wean off vent 07/17: Follow inflammatory markers, monitor off antibiotics. Wean off vent per pulmonary as tolerated 07/18: Wean off vent per pulmonary as tolerated,Follow inflammatory markers, monitor off antibiotics. 07/19: Wean off vent per pulmonary as tolerated,Follow inflammatory markers, monitor off antibiotics. SBT trial 07/20: Wean off vent as tolerated, continue supportive care, follow inflammatory markers 07/21: continue supportive care, follow inflammatory markers, wean off vent as tolerated 07/22: Continue to wean off from ventilator as tolerated per pulmonary recommendation, follow inflammatory markers. Repeat CBC BMP in the morning. We will repeat Covid test tomorrow to see if patient cleared the infection. 07/23. Continue to wean off from ventilator as tolerated per pulmonary recommendation, follow inflammatory markers. Currently AC mode, rate 16, tidal volume 450 with FiO2 75%vand PEEP 14 07/24/2020. Continue ventilatory support with AC mode, rate 16, tidal volume 450, FiO2 100% and PEEP of 16. Continue Brovana and Pulmicort. Continue IV steroids 40 mg IV every 8 hours. Anticoagulation with Lovenox 30 mg twice daily. Patient currently sedated with Versed and fentanyl. 07/25/2020. Continue ventilatory support with AC mode, rate 16, tidal volume 45 0, FiO2 75% and PEEP of 16. Continue Brovana and Pulmicort. Continue IV s teroids 40 mg IV every 8 hours. Anticoagulation with Lovenox 30 mg twice daily. Patient currently sedated with Versed and fentanyl. Continue to wean per pulmonary recommendations. 07/26/2020. Continue ventilatory support with AC mode, rate 16, tidal volume 450, FiO2 85% and PEEP of 16. Continue Brovana and Pulmicort. Continue IV steroids 40 mg IV every 8 hours. Anticoagulation with Lovenox 30 mg twice daily. Patient currently sedated with Versed and fentanyl. Continue to wean per protocol. 07/27/2020. Continue ventilatory support with AC mode, rate 16, tidal volume 450, FiO2 100% and PEEP of 16. Patient with increased oxygen requirements the past couple of days. Continue Brovana and Pulmicort. Continue IV steroids 40 mg IV every 8 hours. Anticoagulation with Lovenox 30 mg twice daily. Patient currently sedated with Versed and fentanyl. Dose of Lasix given by pulmonary yesterday to achieve negative fluid balance. Follow-up serial chest x-ray 07/28/2020. Continue ventilatory support with AC mode, rate 16, tidal volume 450, FiO2 100% and PEEP of 16. Wean FiO2 per protocol. Continue Brovana and Pulmicort. Continue IV steroids 40 mg IV every 8 hours. Anticoagulation with Lovenox 30 mg twice daily. Patient currently sedated with Versed and fentanyl. 07/29/2020. Continue ventilatory support with AC mode, rate 16, tidal volume 450, FiO2 100% and PEEP of 16. Wean FiO2 per protocol. Continue Brovana and Pulmicort. Continue IV steroids 40 mg IV every 8 hours. Anticoagulation with Lovenox 30 mg twice daily. Wean sedation as tolerated. 07/30. Continue ventilatory support with AC mode, rate 16, tidal volume 450, FiO2 100% and PEEP of 16. Wean FiO2 per protocol. Continue Brovana and Pulmicort. Continue IV steroids 40 mg IV every 8 hours. Anticoagulation with Lovenox 30 mg twice daily. Wean sedation as tolerated. 07/31. Still ventilated. On sedatives. Renal function worse today. nephrology has been consulted. Started patient on IV hydration. BC - GN rods and staph aureus. She is on vancomycin. The high probability of a clinically significant, sudden or life threatening deterioration of the [[employer], respiratory, INFORMATION SYSTEMS MANAGER] system(s) required my full and direct attention, intervention and personal management. The aggregate critical care time was [32] minutes. This time is in addition to time spent performing reported procedures but includes the following: [x] Data Review and interpretation [x] Patient assessment and monitoring of vital signs [x] Documentation [x] Medication orders and management - Patient Problems (1) COVID-19 Current Visit: Yes Status: Acute (2) Acute respiratory failure Current Visit: No Status: Acute Qualifiers: Respiratory failure complication: unspecified whether with hypoxia or hypercapnia Qualified Code(s): J96.00 - Acute respiratory failure, unspecified whether with hypoxia or hypercapnia (3) GERD (gastroesophageal reflux disease) Current Visit: No Status: Chronic Qualifiers: Esophagitis presence: without esophagitis Qualified Code(s): K21.9 - Gastro-esophageal reflux disease without esophagitis (4) SLE (systemic lupus erythematosus related syndrome) Current Visit: No Status: Chronic (5) DVT prophylaxis Current Visit: No Status: Acute (6) Full code status Current Visit: No Status: Acute History Interval history: Intubated, sedated and on paralytics. Hospitalist Physical - Physical exam Narrative exam: VITAL SIGNS: Reviewed. GENERAL: Sedated and intubated HEAD: No signs of head trauma. EYES: Pupils are equal. Extraocular motions intact. MOUTH: Oropharynx is normal. NECK: No adenopathy, no JVD. CHEST: Diffuse expiratory wheezes CARDIAC: Normal S1 and S2, without murmurs, gallops, or rubs. VASCULAR: trace edema ABDOMEN: Soft, non tender and non distended. Bowel Sounds normal. NEUROLOGIC EXAM: Sedated SKIN: No obvious lesions - Constitutional Vitals: Temp Pulse Resp BP Pulse Ox 97.6 F 77 36 H 105/55 89 07/31/20 08:00 07/31/20 12:28 07/31/20 11:46 07/31/20 12:28 07/31/20 12:28 Results - Labs CBC & Chem 7: 07/31/20 05:16 07/31/20 05:16 Labs: Laboratory Last Values WBC 8.2 K/mm3 (4.5-11.0) 07/31/20 05:16 RBC 3.03 M/mm3 (3.65-5.03) L 07/31/20 05:16 Hgb 9.2 gm/dl (10.1-14.3) L 07/31/20 05:16 Hct 27.6 % (30.3-42.9) L 07/31/20 05:16 MCV 91 fl (79-97) 07/31/20 05:16 MCH 30 pg (28-32) 07/31/20 05:16 MCHC 33 % (30-34) 07/31/20 05:16 RDW 15.0 % (13.2-15.2) 07/31/20 05:16 Plt Count 118 K/mm3 (140-440) L 07/31/20 05:16 Lymph % (Auto) 6.3 % (13.4-35.0) L 07/31/20 05:16 [place] % (Auto) 2.1 % (0.0-7.3) 07/31/20 05:16 Eos % (Auto) 0.3 % (0.0-4.3) 07/31/20 05:16 Baso % (Auto) 0.1 % (0.0-1.8) 07/31/20 05:16 Lymph # (Auto) 0.5 K/mm3 (1.2-5.4) L 07/31/20 05:16 [place] # (Auto) 0.2 K/mm3 (0.0-0.8) 07/31/20 05:16 Eos # (Auto) 0.0 K/mm3 (0.0-0.4) 07/31/20 05:16 Baso # (Auto) 0.0 K/mm3 (0.0-0.1) 07/31/20 05:16 Add Manual Diff Complete 07/30/20 15:15 Total Counted 100 07/30/20 15:15 Seg Neutrophils % [employer] 07/31/20 05:16 Seg Neuts % (Manual) 90.0 % (40.0-70.0) H 07/30/20 15:15 Band Neutrophils % 0 % 07/30/20 15:15 Lymphocytes % (Manual) 7.0 % (13.4-35.0) L 07/30/20 15:15 Reactive Lymphs % (Man) 0 % 07/30/20 15:15 Monocytes % (Manual) 2.0 % (0.0-7.3) 07/30/20 15:15 Eosinophils % (Manual) 1.0 % (0.0-4.3) 07/30/20 15:15 Basophils % (Manual) 0 % (0.0-1.8) 07/30/20 15:15 Metamyelocytes % 0 % 07/30/20 15:15 Myelocytes % 0 % 07/30/20 15:15 Promyelocytes % 0 % 07/30/20 15:15 Blast Cells % 0 % 07/30/20 15:15 Nucleated RBC % Not Reportable 07/30/20 15:15 Seg Neutrophils # 7.4 K/mm3 (1.8-7.7) 07/31/20 05:16 Seg Neutrophils # Man 5.4 K/mm3 (1.8-7.7) 07/30/20 15:15 Band Neutrophils # 0.0 K/mm3 07/30/20 15:15 Lymphocytes # (Manual) 0.4 K/mm3 (1.2-5.4) L 07/30/20 15:15 Abs React Lymphs (Man) 0.0 K/mm3 07/30/20 15:15 Monocytes # (Manual) 0.1 K/mm3 (0.0-0.8) 07/30/20 15:15 Eosinophils # (Manual) 0.1 K/mm3 (0.0-0.4) 07/30/20 15:15 Basophils # (Manual) 0.0 K/mm3 (0.0-0.1) 07/30/20 15:15 Metamyelocytes # 0.0 K/mm3 07/30/20 15:15 Myelocytes # 0.0 K/mm3 07/30/20 15:15 Promyelocytes # 0.0 K/mm3 07/30/20 15:15 Blast Cells # 0.0 K/mm3 07/30/20 15:15 WBC Morphology Not Reportable 07/30/20 15:15 Hypersegmented Neuts Not Reportable 07/30/20 15:15 Hyposegmented Neuts Not Reportable 07/30/20 15:15 Hypogranular Neuts Not Reportable 07/30/20 15:15 Smudge Cells Not Reportable 07/30/20 15:15 Toxic Granulation Not Reportable 07/30/20 15:15 Toxic Vacuolation Not Reportable 07/30/20 15:15 Dohle Bodies Not Reportable 07/30/20 15:15 Pelger-Huet Anomaly Not Reportable 07/30/20 15:15 Sav[place] Rods Not Reportable 07/30/20 15:15 Platelet Estimate Not Reportable 07/30/20 15:15 Clumped Platelets Not Reportable 07/30/20 15:15 Plt Clumps, EDTA Not Reportable 07/30/20 15:15 Large Platelets Not Reportable 07/30/20 15:15 Giant Platelets Not Reportable 07/30/20 15:15 Platelet Satelliting Not Reportable 07/30/20 15:15 Plt Morphology Comment Not Reportable 07/30/20 15:15 RBC Morphology Not Reportable 07/30/20 15:15 Dimorphic RBCs Not Reportable 07/30/20 15:15 Polychromasia Not Reportable 07/30/20 15:15 Hypochromasia Not Reportable 07/30/20 15:15 Poikilocytosis Not Reportable 07/30/20 15:15 Anisocytosis 1+ 07/30/20 15:15 Microcytosis Not Reportable 07/30/20 15:15 Macrocytosis Not Reportable 07/30/20 15:15 Spherocytes Not Reportable 07/30/20 15:15 Pappenheimer Bodies Not Reportable 07/30/20 15:15 Sickle Cells Not Reportable 07/30/20 15:15 Target Cells Not Reportable 07/30/20 15:15 Tear Drop Cells Not Reportable 07/30/20 15:15 Ovalocytes Not Reportable 07/30/20 15:15 Helmet Cells Not Reportable 07/30/20 15:15 [place] Bodies Not Reportable 07/30/20 15:15 [place] Rings Not Reportable 07/30/20 15:15 Kristan Cells Not Reportable 07/30/20 15:15 Bite Cells Not Reportable 07/30/20 15:15 Crenated Cell Not Reportable 07/30/20 15:15 Elliptocytes Not Reportable 07/30/20 15:15 Acanthocytes (Spur) Not Reportable 07/30/20 15:15 Rouleaux Not Reportable 07/30/20 15:15 Hemoglobin C Crystals Not Reportable 07/30/20 15:15 Schistocytes Not Reportable 07/30/20 15:15 Malaria parasites Not Reportable 07/30/20 15:15 Junaid Bodies Not Reportable 07/30/20 15:15 Hem Pathologist Commnt No 07/30/20 15:15 D-Dimer 826.36 ng/mlDDU (0-234) H 07/13/20 07:20 ABG pH 7.489 (7.320-7.450) H 07/31/20 04:15 POC ABG pCO2 33.6 mmHg (32.0-48.0) 07/31/20 04:15 ABG pCO2 81.7 mm Hg 07/28/20 04:15 POC ABG pO2 50.0 mmHg (83-108) L 07/31/20 04:15 ABG pO2 130.3 mm Hg (80.0-90.0) H 07/28/20 04:15 POC ABG HCO3 25 07/31/20 04:15 ABG HCO3 40.9 mmol/L (20.0-26.0) H 07/28/20 04:15 ABG O2 Saturation 98.1 % (95.0-99.0) 07/28/20 04:15 ABG O2 Content 8.2 (0.0-44) 07/28/20 04:15 POC ABG Base Excess 2.0 07/31/20 04:15 ABG Base Excess 13.5 mmol/L (-2.0-3.0) H 07/28/20 04:15 ABG Hemoglobin 12.8 (12.0-17.5) 07/31/20 04:15 ABG Oxyhemoglobin 84.9 (94-98) L 07/30/20 08:18 ABG Carboxyhemoglobin 1.7 % (0.0-5.0) 07/28/20 04:15 ABG Methemoglobin 0.3 (0.0-1.5) 07/30/20 08:18 ABG Sodium 135.3 mmol/L (136.0-145.0) L 07/31/20 04:15 ABG Potassium 4.0 mmol/L (3.40-4.50) 07/31/20 04:15 ABG Chloride 99.0 mmol/L (98-107) 07/31/20 04:15 ABG Glucose 199 mg/dL (65-95) H 07/31/20 04:15 Oxyhemoglobin 95.8 % (95.0-99.0) 07/28/20 04:15 Carboxyhemoglobin 0.8 (0.5-1.5) 07/30/20 08:18 FiO2 100 07/31/20 04:15 Sodium 142 mmol/L (137-145) 07/31/20 05:16 Potassium 4.1 mmol/L (3.6-5.0) 07/31/20 05:16 Chloride 99.5 mmol/L (98-107) 07/31/20 05:16 Carbon Dioxide 26 mmol/L (22-30) 07/31/20 05:16 Anion Gap 21 mmol/L 07/31/20 05:16 BUN 57 mg/dL (7-17) H 07/31/20 05:16 Creatinine 1.7 mg/dL (0.6-1.2) H 07/31/20 05:16 Estimated GFR 39 ml/min 07/31/20 05:16 BUN/Creatinine Ratio 34 % 07/31/20 05:16 Glucose 208 mg/dL (65-100) H 07/31/20 05:16 POC Glucose 200 mg/dL (70-105) H 07/31/20 11:02 Lactic Acid 3.60 mmol/L (0.7-2.0) H* 07/30/20 17:43 Calcium 8.3 mg/dL (8.4-10.2) L 07/31/20 05:16 Phosphorus 3.20 mg/dL (2.5-4.5) 07/08/20 16:13 Magnesium 2.20 mg/dL (1.7-2.3) 07/08/20 16:13 Ferritin 219.8 ng/mL (10.0-200.0) H 07/13/20 07:20 Total Bilirubin 0.80 mg/dL (0.1-1.2) 07/31/20 05:16 AST 613 units/L (5-40) H 07/31/20 05:16 ALT 760 units/L (7-56) H 07/31/20 05:16 Alkaline Phosphatase 81 units/L (35-129) 07/31/20 05:16 Lactate Dehydrogenase 531 units/L (91-180) H 07/15/20 09:00 C-Reactive Protein 1.80 mg/dL (0.00-1.30) H 07/13/20 07:20 Total Protein 5.6 g/dL (6.3-8.2) L 07/31/20 05:16 Albumin 2.2 g/dL (3.9-5) L 07/31/20 05:16 Albumin/Globulin Ratio 0.6 % 07/31/20 05:16 Triglycerides 837 mg/dL (2-149) H 07/30/20 15:15 Procalcitonin 119.84 ng/mL (<0.15) 07/30/20 17:43 Arterial Blood Glucose 199 mg/dL (65-95) H 07/31/20 04:15 Arterial Blood Ionized Calcium 4.4 mg/dL (4.6-5.3) L 07/31/20 04:15 Urine Color Yellow (Yellow) 07/11/20 09:30 Urine Turbidity Clear (Clear) 07/11/20 09:30 Urine pH 5.0 (5.0-7.0) 07/11/20 09:30 Ur Specific Means 1.028 (1.003-1.030) 07/11/20 09:30 Urine Protein <15 mg/dl mg/dL (Negative) 07/11/20 09:30 Urine Glucose (UA) Neg mg/dL (Negative) 07/11/20 09:30 Urine Ketones Neg mg/dL (Negative) 07/11/20 09:30 Urine Blood Neg (Negative) 07/11/20 09:30 Urine Nitrite Neg (Negative) 07/11/20 09:30 Urine Bilirubin Neg (Negative) 07/11/20 09:30 Urine Urobilinogen 2.0 mg/dL (<2.0) 07/11/20 09:30 Ur Leukocyte Esterase Neg (Negative) 07/11/20 09:30 Urine WBC (Auto) 1.0 /HPF (0.0-6.0) 07/11/20 09:30 Urine RBC (Auto) 1.0 /HPF (0.0-6.0) 07/11/20 09:30 U Epithel Cells (Auto) 1.0 /HPF (0-13.0) 07/11/20 09:30 Urine Mucus Few /HPF 07/11/20 09:30 Coronavirus (PCR) Positive (Negative) A 07/23/20 Unknown SARS-CoV-2 IgG Ab Reactive (NonReactive) A 07/15/20 14:30 Blood Type O POSITIVE 07/09/20 15:30 Antibody Screen Negative 07/09/20 15:30 Microbiology: Microbiology 07/30/20 17:43 Peripheral/Venous Blood Culture - Preliminary Culture in Progress 07/30/20 17:43 Peripheral/Venous Blood Culture - Preliminary Culture in Progress 07/27/20 14:18 Peripheral/Venous Blood Culture - Preliminary NO GROWTH AFTER 72 HOURS 07/27/20 14:18 Peripheral/Venous Blood Culture - Preliminary NO GROWTH AFTER 72 HOURS - Diagnostic Impressions Diagnostic Impressions: Echocardiogram 07/19/20 13:13 Transthoracic Echocardiogram Indication: CHF BP: 106/58 Conclusions *The left ventricular systolic function is within normal limits. There are no wall motion abnormalities observed. *The estimated ejection fraction is 60-65%. *Normal left ventricular diastolic filling is observed. Findings Procedure Info: The study quality is fair. Left Ventricle: The left ventricular chamber size, wall thickness and systolic function are within normal limits. There are no wall motion abnormalities observed. Ejection fraction is normal. The estimated ejection fraction is 60-65%. Normal left ventricular diastolic filling is observed. Left Atrium: The left atrium is normal in size with no visual thrombus identified. Right Ventricle: The right ventricular chamber size and systolic function are within normal limits. Right Atrium: The right atrium appears normal. Aortic Valve: The aortic valve is trileaflet. The leaflets are thin with normal excursion. There is no aortic stenosis or regurgitation present. Mitral Valve: The mitral valve leaflets are mildly thickened. There is trace of mitral regurgitation. There is no evidence of mitral stenosis. Tricuspid Valve: The tricuspid valve leaflets are normal. There is trace tricuspid regurgitation. The right ventricular systolic pressure is calculated at 14 mmHg. There is no tricuspid stenosis. Pulmonic Valve: The pulmonic valve appears normal. There is mild pulmonic regurgitation. There is no pulmonic stenosis. Pericardium: The pericardium appears normal. Aorta: The aorta appears normal. Pulmonary Artery: The main pulmonary artery appears normal. Venous: The inferior vena cava appears normal in size. There is a greater than 50% respiratory change in the inferior vena cava dimension. Measurements Chambers 2D Name Value Normal Range IVSd (2D) 1.08 cm (0.6 - 1.1) LVPWd (2D) 0.91 cm (0.6 - 1.1) LVIDd (2D) 4.61 cm (3.7 - 5.6) LVIDs (2D) 3.12 cm (2 - 3.8) LV FS (2D) 32.38 % - EF Teichholz (2D) 60.72 % - Ao root diameter (2D) 3.01 cm (2 - 3.7) Volumes/Mass Name Value Normal Range LA ESV SP 4CH (A/L) 57.18 ml - LA ESV SP 2CH (A/L) 62.63 ml - LA ESV BP (A/L) 60.68 ml - LA ESV BP (A/L) index 28.22 ml/m2 - LA ESV SP 4CH (MOD) 51.17 ml - LA ESV SP 2CH (MOD) 57.8 ml - LA ESV BP (MOD) 54.73 ml - LA ESV BP (MOD) index 25.45 ml/m2 - LV EDV SP 4CH (MOD) 115.34 ml - LV ESV SP 4CH (MOD) 43.26 ml - EF SP 4CH (MOD) 62.5 % - LV EDV SP 2CH (MOD) 43.71 ml - LV ESV SP 2CH (MOD) 17.14 ml - EF SP 2CH (MOD) 60.79 % - LV EDV BP 73.15 ml - LV ESV BP 27.92 ml - BP EF (MOD) 61.83 % - Diastolic/Systolic Function Name Value Normal Range MV E-wave Vmax 0.88 m/sec - MV deceleration time 157.66 msec - MV A-wave Vmax 0.91 m/sec - MV E:A ratio 0.96 ratio - Aortic Valve Name Value Normal Range AV Vmax 1.54 m/sec - AV VTI 31.46 cm - AV peak gradient 9.51 mmHg - AV mean gradient 5.1 mmHg - LVOT diameter 1.95 cm - LVOT Vmax 1.21 m/sec - LVOT VTI 27.59 cm - LVOT peak gradient 5.83 mmHg - LVOT mean gradient 3.3 mmHg - SV LVOT 82.76 ml - SMITH (continuity Vmax) 2.35 cm2 - SMITH (continuity VTI) 2.63 cm2 - Ascending Ao 2.94 cm - Tricuspid Valve Name Value Normal Range TV E-wave Vmax 0.49 m/sec - TR Vmax 1.72 m/sec - TR peak gradient 11.86 mmHg - RAP 3 mmHg - RVSP 14 mmHg - IVC diameter 1.91 cm (1.2 - 2.3) Pulmonic Valve/Qp:Qs Name Value Normal Range PV Vmax 0.94 m/sec - PV peak gradient 3.54 mmHg - VA end-diastolic Vmax 0.54 m/sec - RVOT Vmax 0.68 m/sec - RVOT VTI 13.18 cm - RVOT peak gradient 1.82 mmHg - PV acceleration time 117.98 msec - Tejada/IV: Voiding Method Indwelling Catheter IV Catheter Type [Left Upper PICC Line arm] IV Catheter Type [Right INT / Saline Lock Forearm] IV Catheter Type [Left Wrist] INT / Saline Lock IV Catheter Type [Left Hand] Peripheral IV Active Medications - Current Medications Current Medications: Generic Name Dose Route Start Last Admin Trade Name Freq PRN Reason Stop Dose Admin Acetaminophen 650 mg 07/06/20 13:39 07/27/20 18:34 Tylenol PO 650 mg Q4H PRN Administration Pain MILD(1-3)/Fever >100.5/WILLETT Albuterol/Ipratropium 1 ampul 07/26/20 14:00 07/31/20 08:52 Duoneb *Not For Prn Use* IH 1 ampul TIDRT ROMMEL Administration Alprazolam 0.5 mg 07/07/20 12:28 07/27/20 03:15 Xanax PO 0.5 mg Q8H PRN Administration Anxiety Lipase/Protease/Amylase 1 each 07/08/20 14:50 Pancremaria del rosario Price 10,500 Unit FEEDTUBE PRN PRN For Clogged Feeding Tube Arformoterol Tartrate 15 mcg 07/07/20 09:15 07/31/20 08:52 Adriel Adams IH 15 mcg Q12HRT ROMMEL Administration Ascorbic Acid 500 mg 07/08/20 22:00 07/31/20 09:56 Vitamin C PO 500 mg BID ROMMEL Administration Aspirin 81 mg 07/06/20 14:00 07/31/20 09:55 Baby Aspirin PO 81 mg QDAY ROMMEL Administration Budesonide 0.5 mg 07/07/20 09:15 07/31/20 08:52 Pulmicort IH 0.5 mg Q12HRT ROMMEL Administration Chlordiazepoxide HCl 75 mg 07/30/20 13:00 07/31/20 12:49 Librium PO 75 mg Q8H ROMMEL Administration Dextrose 50 ml 07/12/20 16:58 D50w (25gm) Syringe IV Q30MIN PRN Hypoglycemia Protocol Docusate Sodium 100 mg 07/16/20 22:00 07/31/20 09:55 Colace PO 100 mg BID ROMMEL Administration Enoxaparin Sodium 30 mg 07/06/20 15:00 07/31/20 09:55 Enoxaparin SUB-Q 30 mg BID ROMMEL Administration Protocol Fentanyl 50 mcg 07/08/20 13:16 07/29/20 15:45 Sublimaze IV 50 mcg Q10MIN PRN Administration ANALGESIA Gabapentin 600 mg 07/25/20 14:00 07/31/20 05:31 Gabapentin PO 600 mg Q8HR ROMMEL Administration Hydrophilic Ointment 1 applic 07/08/20 13:16 07/22/20 23:01 Vaseline Lip Therapy TP 1 applic Q2HR PRN Administration Dry Lips Hydroxychloroquine Sulfate 200 mg 07/07/20 10:00 07/31/20 09:55 Plaquenil PO 200 mg QDAY ROMMEL Administration Fentanyl Citrate 2,000 mcg in 100 mls @ 4.825 mls/hr 07/08/20 14:00 07/31/20 10:24 Fentanyl Drip Premix IV 4 mcg/kg/hr TITR ROMMEL 19.3 mls/hr Administration Protocol 1 MCG/KG/HR Midazolam HCl 100 mg/ Sodium 100 mls @ 2 mls/hr 07/08/20 15:00 07/30/20 21:48 Chloride IV 5 mg/hr TITR ROMMEL 5 mls/hr Administration Protocol 2 MG/HR Sodium Chloride 500 mls @ 10 mls/hr 07/15/20 15:00 Nacl 0.9% 500 Ml IV DIRECT ROMMEL Norepinephrine 4 mg in 250 mls @ 7.5 mls/hr 07/27/20 05:00 Levophed Drip 4 Mg/Ns 250 Ml IV TITR ROMMEL Protocol 2 MCG/MIN Vancomycin HCl 2,000 mg/ 540 mls @ 250 mls/hr 07/29/20 22:00 07/31/20 00:06 Sodium Chloride IV Infused Q12H ROMMEL Infusion Propofol 500 mg in 50 mls @ 2.946 mls/hr 07/30/20 11:00 07/31/20 12:41 Propofol IV 50 mcg/kg/min TITR ROMMEL 29.46 mls/hr Administration Protocol 5 MCG/KG/MIN Dexmedetomidine HCl 400 mcg/ 104 mls @ 5.106 mls/hr 07/30/20 13:00 Sodium Chloride IV 08/01/20 12:59 TITRATE ROMMEL Protocol 0.2 MCG/KG/HR Vasopressin 20 unit/ Sodium 101 mls @ 9.09 mls/hr 07/30/20 13:00 07/31/20 12:42 Chloride IV 0.03 units/min TITR ROMMEL 9.09 mls/hr Administration Protocol 0.03 UNITS/MIN Cefepime HCl 2 gm in 100 mls @ 200 mls/hr 07/30/20 14:00 07/31/20 06:29 Cefepime/Ns 2 Gm/100 Ml IV Infused Q8HR ROMMEL Infusion Phenylephrine HCl 100 mg/ 100 mls @ 3 mls/hr 07/30/20 15:00 07/31/20 06:47 Sodium Chloride IV 150 mcg/min TITR ROMMEL 9 mls/hr Administration Protocol 50 MCG/MIN Sodium Chloride 1,000 mls @ 75 mls/hr 07/31/20 08:30 07/31/20 09:54 Nacl 0.9% 1000 Ml IV 75 mls/hr DIRECT ROMMEL Administration Insulin Glargine 5 units 07/12/20 17:00 07/30/20 17:13 Lantus SUB-Q Not Given Q24H [facility] Insulin Human Regular 0 unit 07/12/20 17:00 07/31/20 12:58 Humulin R SUB-Q 300 unit Q6H [facility] Administration Protocol Lansoprazole 30 mg 07/10/20 10:00 07/31/20 11:33 Prevacid Solutab FEEDTUBE 30 mg QDAY [facility] Administration Methylprednisolone Sodium Succinate 40 mg 07/22/20 14:00 07/31/20 05:31 Solu-Medrol IV 40 mg Q8H [facility] Administration Multi-Ingred Cream/Lotion/Oil/Oint 1 applic 07/08/20 13:16 Artificial Tears Ophth Oint OU Q4HR PRN Dry Eye(s) Ondansetron HCl 4 mg 07/06/20 13:39 07/08/20 10:44 Zofran IV 4 mg Q8H PRN Administration Nausea And Vomiting Polyethylene Glycol 17 gm 07/29/20 12:00 07/31/20 09:56 Miralax 3350 PO 17 gm DAILY [facility] Administration Pseudoephedrine/Acetam/Chlorphenir 10 ml 07/07/20 01:17 07/08/20 08:30 Robitussin Ac PO 10 ml Q4H PRN Administration Cough Quetiapine Fumarate 200 mg 07/25/20 22:00 07/31/20 09:55 Seroquel PO 200 mg BID [facility] Administration Quetiapine Fumarate 100 mg 07/25/20 22:00 07/31/20 09:55 Seroquel PO 100 mg BID [facility] Administration Simple Syrup 15 ml 07/08/20 14:50 Simple Syrup FEEDTUBE PRN PRN Hypoglycemia Simple Syrup 30 ml 07/08/20 14:50 Simple Syrup FEEDTUBE PRN PRN Hypoglycemia Sodium Bicarbonate 325 mg 07/08/20 14:50 Sodium Bicarbonate FEEDTUBE PRN PRN For Clogged Feeding Tube Sodium Chloride 10 ml 07/06/20 14:00 07/31/20 09:57 Sodium Chloride Flush Syringe 10 Ml IV 10 ml BID [facility] Administration Sodium Chloride 10 ml 07/06/20 13:39 07/26/20 06:31 Sodium Chloride Flush Syringe 10 Ml IV 10 ml PRN PRN Administration LINE FLUSH Venlafaxine HCl 37.5 mg 07/07/20 10:00 07/31/20 09:55 Effexor PO 37.5 mg DAILY [facility] Administration Zinc Sulfate 220 mg 07/08/20 22:00 07/31/20 09:56 Zinc Sulfate PO 220 mg BID [facility] Administration Nutrition/Malnutrition Assess - Dietary Evaluation Nutrition/Malnutrition Findings: Nutrition Notes Start: 07/08/20 14:02 Freq: Status: Active Protocol: Document 07/27/20 08:58 JACQUE (Rec: 07/27/20 09:54 [id number]) Nutrition Notes Need for Assessment generated from: MD Order Initial or Follow up Reassessment Current Diagnosis Hypertension,Heart Failure Other Pertinent Diagnosis Acute respiratory failure, COVID(+), GERD, Lupus Current Diet Vital AF 1.2 at 55 mL/hr (goal rate) Labs/Tests Reviewed Pertinent Medications Propofol Fentanyl Solu-medrol Zinc Sulfate Vitamin C Height 5 ft 5 in Weight 102.2 kg [place] Body Weight (kg) 56.81 BMI 37.5 Weight Status Obese Subjective/Other Information MD consult for TF. Pt receiving Vital AF 1.2 at 10ml /hr. Per RN, pt is proned and will be for 2 more days. Percent of energy/protein needs met: 17%/16% Burn Absent Trauma Absent GI Symptoms None Current % PO Negligible Minimum of two criteria No physical signs of malnutrition #1 Nutrition Diagnosis Inadequate oral intake Diagnosis Progress(for reassessment Continues documentation) Is patient on ventilator? Yes Is Patient Ambulatory and/or Out of Bed No REE-([facility]-confined to bed) 1986.828 Kcal/Kg value to use for calculation 16 Approximate Energy Requirements Using 1635 kcal/Kg Calculation Used for Recommendations Kcal/kg Additional Notes Pro: greater than 114 g (>2 g/ kg IBW) Fluid: 1ml/kcal or per MD Nutrition Intervention Change Diet Order: Continue TF Nutrition Support: Vital AF at 55 ml/hr Flush 75 ml q4h 16 hr prone: Vital AF 1.2 at 10 ml for 16hr . Flush 50 ml q4h. For remaining 8 hours, Vital AF 1.2 at 135 ml/hr. Flush 125 ml q4h. Kcal 1,584 Protein (gm) 99 Fluid (mL) 1,070 Goal #1 Meet at least 80% of protein and energy needs via TF Anticipated Discharge Needs: Cannot determine at this time Follow-Up By: 08/01/20 Additional Comments Follow for TF tolerance
[2020-07-31] MEDS: ALTEPLASE 2 MG INJ IV PRN (14:04)
--- NOTE | 2020-07-31 14:46 | Consultation ---
History of Present Illness - Reason for Consult Consult date: 07/31/20 acute renal failure Requesting physician: REBEKAH GARNER - History of Present Illness This is a 50 yo F with past medical history of Hypertension, Asthma, SLE, who presented to [facility] on 07/06/20 initially with complaints of generalized weakness, SOB, fever, chills. Of note, pt was hospitalized here in [facility] on 06/28 for asthma exacerbation and had a negative Covid test at that time. After discharge from her she again presented to [place] for further evaluation for shortness of breath, she was found to have positive COVID-19 test and she was placed on steroids and subsequently discharged on Eliquis prophylaxis for DVT and was discharged on 07/05/20. During this hospitalization course was complicated by worsening respiratory failure requiring intubation. Patient is currently on empiric cefepime and vancomycin for treatment of possible ventilator associated pneumonia. Labs showed worsening renal function with BUN/Cr rising to 57/1.7mg/dl today from Cr around 0.5mg/dl until 07/29/20. On 07/30/20 pt had episodes of hypotension with BP as low as 80/50s. Renal consult is requested for management of MAHOGANY. Past History Past Medical History: hypertension, other (lupus, hypertention, asthma) Past Surgical History: No surgical history Social history: denies: smoking, alcohol abuse, prescription drug abuse, IV drug use Family history: no significant family history Medications and Allergies Allergies Allergy/AdvReac Type Severity Reaction Status Date / Time bee venom protein (honey bee) Allergy Shortness Verified 07/10/18 16:39 of Breath iv contrast Allergy Hives Uncoded 07/10/18 16:36 Home Medications Medication Instructions Recorded Confirmed Last Taken Type ALBUTEROL Inhaler(NF) [VENTOLIN 1 puff IH Q4HR PRN #1 inha 07/10/18 07/06/20 06/27/20 Rx Inhaler(NF)] atenoloL [Tenormin] 50 mg PO DAILY 12/28/18 07/06/20 06/27/20 History Aspirin [Aspirin BABY CHEW TAB] 81 mg PO QDAY #30 tab.chew 12/30/18 07/06/20 06/27/20 Rx Hydroxychloroquine [Plaquenil] 200 mg PO QDAY 30 Days tablet 0507/06/20 06/27/20 Rx Pantoprazole [Protonix TAB] 40 mg PO DAILY #30 tablet 05/04/19 07/06/20 10/06/19 Rx Gabapentin [Gralise] 600 mg PO QDAY 10/09/19 07/06/20 06/27/20 History Venlafaxine [Effexor 25mg tab] 37.5 mg PO QDAY 10/09/19 07/06/20 06/27/20 History ALPRAZolam [Xanax TAB] 2 mg PO Q12HR 06/28/20 07/06/20 06/27/20 History Budesonide/Formoterol Fumarate 10.2 gm IH BID 30 Days hfa.aer.ad 07/01/20 07/06/20 Unknown Rx [Symbicort 160-4.5 Mcg Inhaler] Montelukast [Singulair] 10 mg PO QHS 30 Days tablet 07/01/20 07/06/20 Unknown Rx Prednisone [predniSONE 5 mg (6-Day 5 mg PO .TAPER #1 tab.ds.pk 07/01/20 07/06/20 Unknown Rx Pack, 21 Tabs)] levoFLOXacin [Levaquin] 750 mg PO QDAY #3 tablet 07/01/20 07/06/20 Unknown Rx Active Meds: Active Medications Acetaminophen (Tylenol) 650 mg PO Q4H PRN PRN Reason: Pain MILD(1-3)/Fever >100.5/WILLETT Last Admin: 07/27/20 18:34 Dose: 650 mg Documented by: Albuterol/Ipratropium (Duoneb *Not For Prn Use*) 1 ampul IH TIDRT [facility] Last Admin: 07/31/20 14:23 Dose: 1 ampul Documented by: Alprazolam (Xanax) 0.5 mg PO Q8H PRN PRN Reason: Anxiety Last Admin: 07/27/20 03:15 Dose: 0.5 mg Documented by: Alteplase, Recombinant (Cathflo) 2 mg IV PRN PRN PRN Reason: FOR DECLOTTING Last Admin: 07/31/20 14:04 Dose: 2 mg Documented by: Lipase/Protease/Amylase (Cayla Price 10,500 Unit) 1 each FEEDTUBE PRN PRN PRN Reason: For Clogged Feeding Tube Arformoterol Tartrate (Brovana Nebu) 15 mcg IH Q12HRT [facility] Last Admin: 07/31/20 08:52 Dose: 15 mcg Documented by: Ascorbic Acid (Vitamin C) 500 mg PO BID [facility] Last Admin: 07/31/20 09:56 Dose: 500 mg Documented by: Aspirin (Baby Aspirin) 81 mg PO QDAY [facility] Last Admin: 07/31/20 09:55 Dose: 81 mg Documented by: Budesonide (Pulmicort) 0.5 mg IH Q12HRT [facility] Last Admin: 07/31/20 08:52 Dose: 0.5 mg Documented by: Chlordiazepoxide HCl (Librium) 75 mg PO Q8H [facility] Last Admin: 07/31/20 12:49 Dose: 75 mg Documented by: Dextrose (D50w (25gm) Syringe) 50 ml IV Q30MIN PRN; Protocol PRN Reason: Hypoglycemia Docusate Sodium (Colace) 100 mg PO BID [facility] Last Admin: 07/31/20 09:55 Dose: 100 mg Documented by: Enoxaparin Sodium (Enoxaparin) 30 mg SUB-Q BID [facility]; Protocol Last Admin: 07/31/20 09:55 Dose: 30 mg Documented by: Fentanyl (Sublimaze) 50 mcg IV Q10MIN PRN PRN Reason: ANALGESIA Last Admin: 07/29/20 15:45 Dose: 50 mcg Documented by: Gabapentin (Gabapentin) 600 mg PO Q8HR [facility] Last Admin: 07/31/20 14:05 Dose: 600 mg Documented by: Hydrophilic Ointment (Vaseline Lip Therapy) 1 applic TP Q2HR PRN PRN Reason: Dry Lips Last Admin: 07/22/20 23:01 Dose: 1 applic Documented by: Hydroxychloroquine Sulfate (Plaquenil) 200 mg PO QDAY [facility] Last Admin: 07/31/20 09:55 Dose: 200 mg Documented by: Fentanyl Citrate (Fentanyl Drip Premix) 2,000 mcg in 100 mls @ 4.825 mls/hr IV TITR [facility]; Protocol Last Admin: 07/31/20 10:24 Dose: 4 mcg/kg/hr, 19.3 mls/hr Documented by: Midazolam HCl 100 mg/ Sodium (Chloride) 100 mls @ 2 mls/hr IV TITR [facility]; Protocol Last Admin: 07/30/20 21:48 Dose: 5 mg/hr, 5 mls/hr Documented by: Sodium Chloride (Nacl 0.9% 500 Ml) 500 mls @ 10 mls/hr IV DIRECT [facility] Norepinephrine (Levophed Drip 4 Mg/Ns 250 Ml) 4 mg in 250 mls @ 7.5 mls/hr IV TITR [facility]; Protocol Vancomycin HCl 2,000 mg/ (Sodium Chloride) 540 mls @ 250 mls/hr IV Q12H [facility] Last Infusion: 07/31/20 00:06 Dose: Infused Documented by: Propofol (Propofol) 500 mg in 50 mls @ 2.946 mls/hr IV TITR [facility]; Protocol Last Admin: 07/31/20 14:12 Dose: 50 mcg/kg/min, 29.46 mls/hr Documented by: Dexmedetomidine HCl 400 mcg/ (Sodium Chloride) 104 mls @ 5.106 mls/hr IV TITRATE [facility]; Protocol Stop: 08/01/20 12:59 Vasopressin 20 unit/ Sodium (Chloride) 101 mls @ 9.09 mls/hr IV TITR [facility]; Protocol Last Admin: 07/31/20 12:42 Dose: 0.03 units/min, 9.09 mls/hr Documented by: Cefepime HCl (Cefepime/Ns 2 Gm/100 Ml) 2 gm in 100 mls @ 200 mls/hr IV Q8HR [facility] Last Admin: 07/31/20 14:09 Dose: 200 mls/hr Documented by: Phenylephrine HCl 100 mg/ (Sodium Chloride) 100 mls @ 3 mls/hr IV TITR [facility]; Protocol Last Admin: 07/31/20 06:47 Dose: 150 mcg/min, 9 mls/hr Documented by: Sodium Chloride (Nacl 0.9% 1000 Ml) 1,000 mls @ 75 mls/hr IV DIRECT [facility] Last Admin: 07/31/20 09:54 Dose: 75 mls/hr Documented by: Insulin Glargine (Lantus) 5 units SUB-Q Q24H [facility] Last Admin: 07/30/20 17:13 Dose: Not Given Documented by: Insulin Human Regular (Humulin R) 0 unit SUB-Q Q6H [facility]; Protocol Last Admin: 07/31/20 12:58 Dose: 300 unit Documented by: Lansoprazole (Prevacid Solutab) 30 mg FEEDTUBE QDAY [facility] Last Admin: 07/31/20 11:33 Dose: 30 mg Documented by: Methylprednisolone Sodium Succinate (Solu-Medrol) 40 mg IV Q8H [facility] Last Admin: 07/31/20 14:05 Dose: 40 mg Documented by: Multi-Ingred Cream/Lotion/Oil/Oint (Artificial Tears Ophth Oint) 1 applic OU Q4HR PRN PRN Reason: Dry Eye(s) Ondansetron HCl (Zofran) 4 mg IV Q8H PRN PRN Reason: Nausea And Vomiting Last Admin: 07/08/20 10:44 Dose: 4 mg Documented by: Polyethylene Glycol (Miralax 3350) 17 gm PO DAILY [facility] Last Admin: 07/31/20 09:56 Dose: 17 gm Documented by: Pseudoephedrine/Acetam/Chlorphenir (Robitussin Ac) 10 ml PO Q4H PRN PRN Reason: Cough Last Admin: 07/08/20 08:30 Dose: 10 ml Documented by: Quetiapine Fumarate (Seroquel) 200 mg PO BID [facility] Last Admin: 07/31/20 09:55 Dose: 200 mg Documented by: Quetiapine Fumarate (Seroquel) 100 mg PO BID [facility] Last Admin: 07/31/20 09:55 Dose: 100 mg Documented by: Simple Syrup (Simple Syrup) 15 ml FEEDTUBE PRN PRN PRN Reason: Hypoglycemia Simple Syrup (Simple Syrup) 30 ml FEEDTUBE PRN PRN PRN Reason: Hypoglycemia Sodium Bicarbonate (Sodium Bicarbonate) 325 mg FEEDTUBE PRN PRN PRN Reason: For Clogged Feeding Tube Sodium Chloride (Sodium Chloride Flush Syringe 10 Ml) 10 ml IV BID [facility] Last Admin: 07/31/20 09:57 Dose: 10 ml Documented by: Sodium Chloride (Sodium Chloride Flush Syringe 10 Ml) 10 ml IV PRN PRN PRN Reason: LINE FLUSH Last Admin: 07/26/20 06:31 Dose: 10 ml Documented by: Venlafaxine HCl (Effexor) 37.5 mg PO DAILY [facility] Last Admin: 07/31/20 09:55 Dose: 37.5 mg Documented by: Zinc Sulfate (Zinc Sulfate) 220 mg PO BID [facility] Last Admin: 07/31/20 09:56 Dose: 220 mg Documented by: Review of Systems ROS unobtainable: due to endotracheal tube, due to mental status Exam - Vital Signs Vital signs: Vital Signs Temp 101.7 F H 07/06/20 04:27 - Physical Exam Narrative exam: physical exam deferred due to PPE perservation and to minimize risk of transmission Results - Lab Results 07/31/20 05:16 07/31/20 05:16 Most recent lab results ABG pH 7.489 (7.320-7.450) H 07/31/20 04:15 ABG pCO2 81.7 mm Hg 07/28/20 04:15 ABG pO2 130.3 mm Hg (80.0-90.0) H 07/28/20 04:15 ABG HCO3 40.9 mmol/L (20.0-26.0) H 07/28/20 04:15 ABG O2 Saturation 98.1 % (95.0-99.0) 07/28/20 04:15 Calcium 8.3 mg/dL (8.4-10.2) L 07/31/20 05:16 Phosphorus 3.20 mg/dL (2.5-4.5) 07/08/20 16:13 Magnesium 2.20 mg/dL (1.7-2.3) 07/08/20 16:13 Assessment and Plan - Patient Problems (1) Acute tubular necrosis Current Visit: Yes Status: Acute Plan to address problem: MAHOGANY most likely secondary to acute tubular necrosis in the setting of pneumonia/sepsis and hypotension. BP improved with IVF resuscitation, pt with decreased urine output, however remains non-oliguric. No emergent indication for renal replacement therapy, cont supportive care for MAHOGANY/ATN maintain MAP > 65mm Hg with IV NS/vasopressor support prn, avoid nephrotoxins, NSADIs, IV contrast. Will montor lytes/renal parameters closely and make further recommendations. (2) COVID-19 Current Visit: Yes Status: Acute Plan to address problem: On IV steroid, s/p Remdesivir for 5 days and convalescent plasma transfusion. follow Ferritin, LDH, d-dimer level, follow ID recommendations (3) Acute respiratory failure Current Visit: No Status: Acute Qualifiers: Respiratory failure complication: unspecified whether with hypoxia or hypercapnia Qualified Code(s): J96.00 - Acute respiratory failure, unspecified whether with hypoxia or hypercapnia Plan to address problem: on ventilator support, management as per ICU team (4) Anemia in chronic illness Current Visit: Yes Status: Acute Plan to address problem: monitor serial Hb, PRBC transfusion prn for Hb < 7 (5) SLE (systemic lupus erythematosus related syndrome) Current Visit: No Status: Chronic Plan to address problem: on plaquenil
--- NOTE | 2020-07-31 14:48 | Progress Note ---
Assessment and Plan Acute hypoxemic respiratory failure, now on MVS Bilateral pneumonia, left greater than right lungs. COVID-19 infection. History of congestive heart failure. History of lupus erythematosus. Leukocytosis. Tobacco use disorder. Acute asthma exacerbation. History of hypertension. Obesity - get CXR and review re: pneumothorax - increased set rate to 30 to try and match her drive - reduced TV to 400 ml's - continue sedation and target RASS -2 to -3 acutely - keep chest tube to continuous wall suction - repeat ABG at 9pm - Increase Seroquel to 300 mg po tid for sedation / anxiolysis - procal significantly elevated as is lactic acid - seen by ID and will follow recommendations (Cefepime and Vanc) - prognosis grave - continue care as below otherwise; - wean Vasopressors for target MAP > 65 mmHg - continue Librium - repeat COVID-19 test is positive - continue systemic steroids - continue to wean supplemental oxygen for target O2 sat's > 92% - continue low dose SSI - continue Seroquel 300 mg p.o. bid - continue airborne and contact isolation - continue Zinc & Vit C supplementaion - complete Remdesivir - de-escalate AB's per ID rec's - continue systemic steroids for Asthma / severe COVID infection - continue Daily SAT and SBT assessment as tolerated - VAP bundle addressed - continue lung protective strategies - continue bronchodilators with pulmonary hygiene per RT - wean per pulmonary driven protocols otherwise - accuchecks with glycemic control per SSI (While critically ill target blood glucose of 140-180 mg/dL; avoid hypoglycemia) - sedation prn for target RASS -1 to -2 - avoid nephrotoxins, renally dose all medications - continue to avoid benzodiazepine's, reduce the possibility of delirium - prn analgesia per CPOT score - Maintenance of sleep-wake cycle, avoid delirium - continue enteral nutritional support at goal rate as tolerated - G.I. & VTE prophylaxis - PT/OT/ROM exercises - continue mobility protocols for pressure ulcer prophylaxis - Monitor hemodynamics closely - continue other care per attending / other consultants - discharge planning ongoing concurrently .... Re-evaluate in am & prn CONDITION: CRITICAL PROGNOSIS: GUARDED CODE STATUS: FULL CODE The high probability of a clinically significant, sudden or life-threatening deterioration of the [respiratory, cardiovascular & neurologic] system(s) required my full and direct attention, intervention and personal management. The aggregate critical care time was [35] minutes without overlap. Time includes spent on; [x] Data Review and interpretation [x] Patient assessment and monitoring of vital signs [x] Documentation [x] Medication orders and management Subjective Date of service: 07/31/20 Principal diagnosis: Ac hypoxemic resp failure; PNA; COVID-19 infxn; SLE; Asthma exacerbation Interval history: Patient is seen today for: Acute hypoxemic respiratory failure; Bilateral pneumonia; COVID-19 infection; H/O CHF; SLE; Acute asthma exacerbation. HTN; Obesity Seen and examined at bedside; 24hour events reviewed; nursing and respiratory care staff consulted; no adverse overnight events reported to me; resting peacefully in bed; remains on MVS; O2 sats in 80's but that at peep of 20 and 100% FiO2; chest tube remains in location with mild leak noted; work of breathing increased and in the 40's; no emesis or overt aspiration Objective Vital Signs - 12hr 07/31/20 07/31/20 07/31/20 02:46 03:00 03:16 Temperature Pulse Rate 77 77 77 Pulse Rate [ Bilateral Throughout] Pulse Rate [ From Monitor] Respiratory 48 H 48 H 47 H Rate Respiratory Rate [Bilateral Throughout] Respiratory Rate [Chest] Blood Pressure 122/85 120/80 125/81 O2 Sat by Pulse 87 87 86 Oximetry 07/31/20 07/31/20 07/31/20 03:30 03:46 04:00 Temperature 98.9 F Pulse Rate 77 76 76 Pulse Rate [ Bilateral Throughout] Pulse Rate [ 76 From Monitor] Respiratory 48 H 47 H 48 H Rate Respiratory Rate [Bilateral Throughout] Respiratory Rate [Chest] Blood Pressure 121/80 120/82 124/85 O2 Sat by Pulse 86 86 85 Oximetry 07/31/20 07/31/20 07/31/20 04:15 04:30 04:35 Temperature Pulse Rate 62 78 77 Pulse Rate [ Bilateral Throughout] Pulse Rate [ From Monitor] Respiratory 48 H 47 H Rate Respiratory Rate [Bilateral Throughout] Respiratory Rate [Chest] Blood Pressure 167/100 119/70 110/68 O2 Sat by Pulse 93 83 L 83 L Oximetry 07/31/20 07/31/20 07/31/20 04:46 05:00 05:16 Temperature Pulse Rate 82 77 74 Pulse Rate [ Bilateral Throughout] Pulse Rate [ From Monitor] Respiratory 47 H 48 H 48 H Rate Respiratory Rate [Bilateral Throughout] Respiratory Rate [Chest] Blood Pressure 119/67 110/68 113/71 O2 Sat by Pulse 76 L 83 L 85 Oximetry 07/31/20 07/31/20 07/31/20 05:30 05:45 06:00 Temperature Pulse Rate 64 80 70 Pulse Rate [ Bilateral Throughout] Pulse Rate [ From Monitor] Respiratory 47 H 47 H 48 H Rate Respiratory Rate [Bilateral Throughout] Respiratory Rate [Chest] Blood Pressure 178/103 88/47 120/74 O2 Sat by Pulse 93 79 L 87 Oximetry 07/31/20 07/31/20 07/31/20 06:16 06:30 06:46 Temperature Pulse Rate 70 69 70 Pulse Rate [ Bilateral Throughout] Pulse Rate [ From Monitor] Respiratory 47 H 48 H 47 H Rate Respiratory Rate [Bilateral Throughout] Respiratory Rate [Chest] Blood Pressure 122/81 122/80 123/80 O2 Sat by Pulse 89 88 87 Oximetry 07/31/20 07/31/20 07/31/20 07:00 07:16 07:30 Temperature Pulse Rate 70 69 69 Pulse Rate [ Bilateral Throughout] Pulse Rate [ From Monitor] Respiratory 48 H 47 H 47 H Rate Respiratory Rate [Bilateral Throughout] Respiratory Rate [Chest] Blood Pressure 127/80 132/84 130/82 O2 Sat by Pulse 87 88 87 Oximetry 07/31/20 07/31/20 07/31/20 07:46 08:00 08:16 Temperature 97.6 F Pulse Rate 67 67 65 Pulse Rate [ 63 Bilateral Throughout] Pulse Rate [ 63 From Monitor] Respiratory 48 H 48 H 47 H Rate Respiratory 42 H Rate [Bilateral Throughout] Respiratory Rate [Chest] Blood Pressure 134/80 135/85 135/83 O2 Sat by Pulse 88 89 89 Oximetry 07/31/20 07/31/20 07/31/20 08:30 08:46 08:49 Temperature Pulse Rate 64 64 64 Pulse Rate [ Bilateral Throughout] Pulse Rate [ From Monitor] Respiratory 48 H 48 H Rate Respiratory Rate [Bilateral Throughout] Respiratory Rate [Chest] Blood Pressure 135/84 133/83 133/83 O2 Sat by Pulse 89 90 89 Oximetry 07/31/20 07/31/20 07/31/20 09:00 09:16 09:30 Temperature Pulse Rate 62 69 70 Pulse Rate [ Bilateral Throughout] Pulse Rate [ From Monitor] Respiratory 41 H 43 H 43 H Rate Respiratory Rate [Bilateral Throughout] Respiratory Rate [Chest] Blood Pressure 143/91 121/64 112/62 O2 Sat by Pulse 95 94 94 Oximetry 07/31/20 07/31/20 07/31/20 09:45 09:46 10:00 Temperature Pulse Rate 72 71 Pulse Rate [ 61 Bilateral Throughout] Pulse Rate [ From Monitor] Respiratory 41 H 41 H Rate Respiratory 45 H Rate [Bilateral Throughout] Respiratory 38 H Rate [Chest] Blood Pressure 110/58 104/57 O2 Sat by Pulse 94 94 Oximetry 07/31/20 07/31/20 07/31/20 10:16 10:30 10:46 Temperature Pulse Rate 71 76 81 Pulse Rate [ Bilateral Throughout] Pulse Rate [ From Monitor] Respiratory 41 H 42 H 41 H Rate Respiratory Rate [Bilateral Throughout] Respiratory Rate [Chest] Blood Pressure 111/60 105/51 102/49 O2 Sat by Pulse 94 92 89 Oximetry 07/31/20 07/31/20 07/31/20 11:00 11:16 11:30 Temperature Pulse Rate 80 84 88 Pulse Rate [ Bilateral Throughout] Pulse Rate [ From Monitor] Respiratory 40 H 36 H 23 Rate Respiratory Rate [Bilateral Throughout] Respiratory Rate [Chest] Blood Pressure 101/51 102/51 108/58 O2 Sat by Pulse 89 91 91 Oximetry 07/31/20 07/31/20 11:46 12:28 Temperature Pulse Rate 89 77 Pulse Rate [ Bilateral Throughout] Pulse Rate [ From Monitor] Respiratory 36 H Rate Respiratory Rate [Bilateral Throughout] Respiratory Rate [Chest] Blood Pressure 111/58 105/55 O2 Sat by Pulse 89 89 Oximetry Constitutional: appears uncomfortable, other (middle aged obese female with mildly increased respiratory effort at rest on MVS) Eyes: non-icteric ENT: oropharynx moist, other (ETT 23cm YANET) Neck: supple, no lymphadenopathy, no JVD Effort: mildly labored Ascultation: Bilateral: diminished breath sounds, rhonchi (scant ), other (+ mild accesory muscle use) Percussion: Bilateral: not dull Cardiovascular: regular rate and rhythm, other (S1,S2) Gastrointestinal: normoactive bowel sounds, soft, non-tender, non-distended Integumentary: normal Extremities: no cyanosis, no edema, pulses normal, no ischemia or petechiae Neurologic: pupils equal and round, other (sedated) Psychiatric: other (unable to assess re: AMS / sedation) CBC and BMP: 12/02/20 05:16 07/31/20 05:16 ABG, PT/INR, D-dimer: ABG ABG pH 7.489 (7.320-7.450) H 07/31/20 04:15 POC ABG pCO2 33.6 mmHg (32.0-48.0) 07/31/20 04:15 ABG pCO2 81.7 mm Hg 07/28/20 04:15 POC ABG pO2 50.0 mmHg (83-108) L 07/31/20 04:15 ABG pO2 130.3 mm Hg (80.0-90.0) H 07/28/20 04:15 POC ABG HCO3 25 07/31/20 04:15 ABG O2 Saturation 98.1 % (95.0-99.0) 07/28/20 04:15 PT/INR, D-dimer D-Dimer 826.36 ng/mlDDU (0-234) H 07/13/20 07:20 Abnormal lab findings: Abnormal Labs 07/06/20 07/06/20 07/07/20 05:24 17:16 04:50 WBC 13.5 H 12.7 H RBC Hgb Hct MCH MCHC Plt Count Lymph % (Auto) Lymph # (Auto) Seg Neutrophils % Seg Neuts % (Manual) 86.0 H 87.0 H Lymphocytes % (Manual) 6.0 L 9.0 L Eosinophils % (Manual) Seg Neutrophils # Seg Neutrophils # Man 11.6 H 11.0 H Lymphocytes # (Manual) 0.8 L 1.1 L Eosinophils # (Manual) D-Dimer ABG pH POC ABG pCO2 POC ABG pO2 ABG pO2 ABG HCO3 ABG O2 Saturation ABG Base Excess ABG Hemoglobin ABG Oxyhemoglobin ABG Sodium ABG Potassium ABG Chloride ABG Glucose Oxyhemoglobin Sodium Chloride Carbon Dioxide BUN Creatinine Glucose POC Glucose Lactic Acid Calcium Ferritin AST ALT Lactate Dehydrogenase 242 H C-Reactive Protein 7.30 H Total Protein Albumin Triglycerides Arterial Blood Glucose Arterial Blood Ionized Calcium Coronavirus (PCR) SARS-CoV-2 IgG Ab 07/07/20 07/07/20 07/07/20 04:50 14:22 14:22 WBC RBC Hgb Hct MCH MCHC Plt Count Lymph % (Auto) Lymph # (Auto) Seg Neutrophils % Seg Neuts % (Manual) Lymphocytes % (Manual) Eosinophils % (Manual) Seg Neutrophils # Seg Neutrophils # Man Lymphocytes # (Manual) Eosinophils # (Manual) D-Dimer ABG pH POC ABG pCO2 POC ABG pO2 ABG pO2 ABG HCO3 ABG O2 Saturation ABG Base Excess ABG Hemoglobin ABG Oxyhemoglobin ABG Sodium ABG Potassium ABG Chloride ABG Glucose Oxyhemoglobin Sodium Chloride Carbon Dioxide BUN 18 H Creatinine Glucose 138 H POC Glucose Lactic Acid Calcium Ferritin 228.2 H AST ALT Lactate Dehydrogenase 277 H C-Reactive Protein Total Protein 5.9 L Albumin 3.4 L Triglycerides Arterial Blood Glucose Arterial Blood Ionized Calcium Coronavirus (PCR) SARS-CoV-2 IgG Ab 07/08/20 07/08/20 07/08/20 11:18 12:57 16:13 WBC RBC Hgb Hct MCH MCHC Plt Count Lymph % (Auto) Lymph # (Auto) Seg Neutrophils % Seg Neuts % (Manual) Lymphocytes % (Manual) Eosinophils % (Manual) Seg Neutrophils # Seg Neutrophils # Man Lymphocytes # (Manual) Eosinophils # (Manual) D-Dimer ABG pH POC ABG pCO2 POC ABG pO2 ABG pO2 39.3 L* ABG HCO3 ABG O2 Saturation 76.8 L ABG Base Excess ABG Hemoglobin ABG Oxyhemoglobin ABG Sodium ABG Potassium ABG Chloride ABG Glucose Oxyhemoglobin 75.3 L Sodium Chloride Carbon Dioxide 20 L D BUN Creatinine Glucose 135 H POC Glucose 106 H Lactic Acid Calcium 8.0 L Ferritin AST ALT Lactate Dehydrogenase C-Reactive Protein Total Protein Albumin Triglycerides Arterial Blood Glucose Arterial Blood Ionized Calcium Coronavirus (PCR) SARS-CoV-2 IgG Ab 07/08/20 07/08/20 07/09/20 17:04 18:45 04:00 WBC 15.6 H RBC Hgb Hct MCH MCHC Plt Count Lymph % (Auto) 4.7 L Lymph # (Auto) 0.7 L Seg Neutrophils % Seg Neuts % (Manual) Lymphocytes % (Manual) Eosinophils % (Manual) Seg Neutrophils # 14.2 H Seg Neutrophils # Man Lymphocytes # (Manual) Eosinophils # (Manual) D-Dimer ABG pH POC ABG pCO2 POC ABG pO2 ABG pO2 181.8 H ABG HCO3 ABG O2 Saturation 99.1 H ABG Base Excess ABG Hemoglobin 11.4 L ABG Oxyhemoglobin ABG Sodium ABG Potassium ABG Chloride ABG Glucose Oxyhemoglobin Sodium Chloride Carbon Dioxide BUN Creatinine Glucose POC Glucose 117 H Lactic Acid Calcium Ferritin AST ALT Lactate Dehydrogenase C-Reactive Protein Total Protein Albumin Triglycerides Arterial Blood Glucose Arterial Blood Ionized Calcium Coronavirus (PCR) SARS-CoV-2 IgG Ab 07/09/20 07/09/20 07/09/20 04:00 04:00 04:49 WBC RBC Hgb Hct MCH MCHC Plt Count Lymph % (Auto) Lymph # (Auto) Seg Neutrophils % Seg Neuts % (Manual) Lymphocytes % (Manual) Eosinophils % (Manual) Seg Neutrophils # Seg Neutrophils # Man Lymphocytes # (Manual) Eosinophils # (Manual) D-Dimer ABG pH POC ABG pCO2 POC ABG pO2 ABG pO2 ABG HCO3 26.2 H ABG O2 Saturation ABG Base Excess ABG Hemoglobin 11.2 L ABG Oxyhemoglobin ABG Sodium ABG Potassium ABG Chloride ABG Glucose Oxyhemoglobin 94.9 L Sodium Chloride Carbon Dioxide BUN Creatinine Glucose 158 H POC Glucose Lactic Acid Calcium 8.2 L Ferritin 320.0 H AST ALT Lactate Dehydrogenase 391 H C-Reactive Protein 9.50 H Total Protein 5.9 L Albumin 3.2 L Triglycerides Arterial Blood Glucose Arterial Blood Ionized Calcium Coronavirus (PCR) SARS-CoV-2 IgG Ab 07/09/20 07/09/20 07/09/20 11:56 17:49 23:39 WBC RBC Hgb Hct MCH MCHC Plt Count Lymph % (Auto) Lymph # (Auto) Seg Neutrophils % Seg Neuts % (Manual) Lymphocytes % (Manual) Eosinophils % (Manual) Seg Neutrophils # Seg Neutrophils # Man Lymphocytes # (Manual) Eosinophils # (Manual) D-Dimer ABG pH POC ABG pCO2 POC ABG pO2 ABG pO2 ABG HCO3 ABG O2 Saturation ABG Base Excess ABG Hemoglobin ABG Oxyhemoglobin ABG Sodium ABG Potassium ABG Chloride ABG Glucose Oxyhemoglobin Sodium Chloride Carbon Dioxide BUN Creatinine Glucose POC Glucose 156 H 119 H 145 H Lactic Acid Calcium Ferritin AST ALT Lactate Dehydrogenase C-Reactive Protein Total Protein Albumin Triglycerides Arterial Blood Glucose Arterial Blood Ionized Calcium Coronavirus (PCR) SARS-CoV-2 IgG Ab 07/10/20 07/10/20 07/10/20 03:32 05:26 11:22 WBC RBC Hgb Hct MCH MCHC Plt Count Lymph % (Auto) Lymph # (Auto) Seg Neutrophils % Seg Neuts % (Manual) Lymphocytes % (Manual) Eosinophils % (Manual) Seg Neutrophils # Seg Neutrophils # Man Lymphocytes # (Manual) Eosinophils # (Manual) D-Dimer ABG pH POC ABG pCO2 POC ABG pO2 ABG pO2 75.7 L ABG HCO3 27.5 H ABG O2 Saturation ABG Base Excess ABG Hemoglobin 9.3 L ABG Oxyhemoglobin ABG Sodium ABG Potassium ABG Chloride ABG Glucose Oxyhemoglobin 94.7 L Sodium Chloride Carbon Dioxide BUN Creatinine Glucose POC Glucose 156 H 148 H Lactic Acid Calcium Ferritin AST ALT Lactate Dehydrogenase C-Reactive Protein Total Protein Albumin Triglycerides Arterial Blood Glucose Arterial Blood Ionized Calcium Coronavirus (PCR) SARS-CoV-2 IgG Ab 07/10/20 07/10/20 07/10/20 12:10 12:10 18:20 WBC 14.1 H RBC 3.33 L Hgb 9.9 L Hct MCH MCHC Plt Count Lymph % (Auto) Lymph # (Auto) Seg Neutrophils % Seg Neuts % (Manual) 89.0 H Lymphocytes % (Manual) 8.0 L Eosinophils % (Manual) Seg Neutrophils # Seg Neutrophils # Man 12.5 H Lymphocytes # (Manual) 1.1 L Eosinophils # (Manual) D-Dimer ABG pH POC ABG pCO2 POC ABG pO2 ABG pO2 ABG HCO3 ABG O2 Saturation ABG Base Excess ABG Hemoglobin ABG Oxyhemoglobin ABG Sodium ABG Potassium ABG Chloride ABG Glucose Oxyhemoglobin Sodium Chloride Carbon Dioxide BUN 21 H Creatinine Glucose 154 H POC Glucose 181 H Lactic Acid Calcium 8.0 L Ferritin AST ALT Lactate Dehydrogenase C-Reactive Protein Total Protein 5.4 L Albumin 3.0 L Triglycerides Arterial Blood Glucose Arterial Blood Ionized Calcium Coronavirus (PCR) SARS-CoV-2 IgG Ab 07/10/20 07/11/20 07/11/20 23:51 04:05 05:43 WBC RBC Hgb Hct MCH MCHC Plt Count Lymph % (Auto) Lymph # (Auto) Seg Neutrophils % Seg Neuts % (Manual) Lymphocytes % (Manual) Eosinophils % (Manual) Seg Neutrophils # Seg Neutrophils # Man Lymphocytes # (Manual) Eosinophils # (Manual) D-Dimer ABG pH 7.348 L POC ABG pCO2 POC ABG pO2 ABG pO2 93.6 H ABG HCO3 28.5 H ABG O2 Saturation ABG Base Excess ABG Hemoglobin 10.1 L ABG Oxyhemoglobin ABG Sodium ABG Potassium ABG Chloride ABG Glucose Oxyhemoglobin Sodium Chloride Carbon Dioxide BUN Creatinine Glucose POC Glucose 116 H 132 H Lactic Acid Calcium Ferritin AST ALT Lactate Dehydrogenase C-Reactive Protein Total Protein Albumin Triglycerides Arterial Blood Glucose Arterial Blood Ionized Calcium Coronavirus (PCR) SARS-CoV-2 IgG Ab 07/11/20 07/11/20 07/11/20 09:11 09:11 09:11 WBC 15.8 H RBC 3.44 L Hgb Hct MCH MCHC Plt Count Lymph % (Auto) Lymph # (Auto) Seg Neutrophils % Seg Neuts % (Manual) 92.0 H Lymphocytes % (Manual) 4.0 L Eosinophils % (Manual) Seg Neutrophils # Seg Neutrophils # Man 14.5 H Lymphocytes # (Manual) 0.6 L Eosinophils # (Manual) D-Dimer 360.61 H ABG pH POC ABG pCO2 POC ABG pO2 ABG pO2 ABG HCO3 ABG O2 Saturation ABG Base Excess ABG Hemoglobin ABG Oxyhemoglobin ABG Sodium ABG Potassium ABG Chloride ABG Glucose Oxyhemoglobin Sodium Chloride 107.1 H Carbon Dioxide BUN 22 H Creatinine Glucose 149 H POC Glucose Lactic Acid Calcium 7.8 L Ferritin AST ALT Lactate Dehydrogenase 483 H C-Reactive Protein 2.30 H Total Protein 4.9 L Albumin 3.0 L Triglycerides Arterial Blood Glucose Arterial Blood Ionized Calcium Coronavirus (PCR) SARS-CoV-2 IgG Ab 07/11/20 07/11/20 07/11/20 09:11 12:16 17:55 WBC RBC Hgb Hct MCH MCHC Plt Count Lymph % (Auto) Lymph # (Auto) Seg Neutrophils % Seg Neuts % (Manual) Lymphocytes % (Manual) Eosinophils % (Manual) Seg Neutrophils # Seg Neutrophils # Man Lymphocytes # (Manual) Eosinophils # (Manual) D-Dimer ABG pH POC ABG pCO2 POC ABG pO2 ABG pO2 ABG HCO3 ABG O2 Saturation ABG Base Excess ABG Hemoglobin ABG Oxyhemoglobin ABG Sodium ABG Potassium ABG Chloride ABG Glucose Oxyhemoglobin Sodium Chloride Carbon Dioxide BUN Creatinine Glucose POC Glucose 157 H 166 H Lactic Acid Calcium Ferritin 371.2 H AST ALT Lactate Dehydrogenase C-Reactive Protein Total Protein Albumin Triglycerides Arterial Blood Glucose Arterial Blood Ionized Calcium Coronavirus (PCR) SARS-CoV-2 IgG Ab 07/12/20 07/12/20 07/12/20 00:32 04:00 04:00 WBC RBC 3.52 L Hgb Hct MCH MCHC Plt Count Lymph % (Auto) Lymph # (Auto) Seg Neutrophils % Seg Neuts % (Manual) 90.0 H Lymphocytes % (Manual) 4.0 L Eosinophils % (Manual) Seg Neutrophils # Seg Neutrophils # Man 9.5 H Lymphocytes # (Manual) 0.4 L Eosinophils # (Manual) D-Dimer ABG pH POC ABG pCO2 POC ABG pO2 ABG pO2 ABG HCO3 ABG O2 Saturation ABG Base Excess ABG Hemoglobin ABG Oxyhemoglobin ABG Sodium ABG Potassium ABG Chloride ABG Glucose Oxyhemoglobin Sodium Chloride Carbon Dioxide 31 H BUN 21 H Creatinine Glucose 175 H POC Glucose 178 H Lactic Acid Calcium 8.0 L Ferritin AST ALT Lactate Dehydrogenase C-Reactive Protein Total Protein 5.4 L Albumin 3.0 L Triglycerides Arterial Blood Glucose Arterial Blood Ionized Calcium Coronavirus (PCR) SARS-CoV-2 IgG Ab 07/12/20 07/12/20 07/12/20 04:01 05:47 12:09 WBC RBC Hgb Hct MCH MCHC Plt Count Lymph % (Auto) Lymph # (Auto) Seg Neutrophils % Seg Neuts % (Manual) Lymphocytes % (Manual) Eosinophils % (Manual) Seg Neutrophils # Seg Neutrophils # Man Lymphocytes # (Manual) Eosinophils # (Manual) D-Dimer ABG pH 7.456 H POC ABG pCO2 POC ABG pO2 ABG pO2 ABG HCO3 ABG O2 Saturation ABG Base Excess ABG Hemoglobin 10.6 L ABG Oxyhemoglobin ABG Sodium ABG Potassium ABG Chloride ABG Glucose 177 H Oxyhemoglobin Sodium Chloride Carbon Dioxide BUN Creatinine Glucose POC Glucose 185 H 227 H Lactic Acid Calcium Ferritin AST ALT Lactate Dehydrogenase C-Reactive Protein Total Protein Albumin Triglycerides Arterial Blood Glucose 177 H Arterial Blood Ionized Calcium 4.5 L Coronavirus (PCR) SARS-CoV-2 IgG Ab 07/12/20 07/12/20 07/13/20 17:34 23:57 05:06 WBC RBC Hgb Hct MCH MCHC Plt Count Lymph % (Auto) Lymph # (Auto) Seg Neutrophils % Seg Neuts % (Manual) Lymphocytes % (Manual) Eosinophils % (Manual) Seg Neutrophils # Seg Neutrophils # Man Lymphocytes # (Manual) Eosinophils # (Manual) D-Dimer ABG pH POC ABG pCO2 POC ABG pO2 ABG pO2 ABG HCO3 ABG O2 Saturation ABG Base Excess ABG Hemoglobin ABG Oxyhemoglobin ABG Sodium ABG Potassium ABG Chloride ABG Glucose Oxyhemoglobin Sodium Chloride Carbon Dioxide BUN Creatinine Glucose POC Glucose 202 H 163 H 166 H Lactic Acid Calcium Ferritin AST ALT Lactate Dehydrogenase C-Reactive Protein Total Protein Albumin Triglycerides Arterial Blood Glucose Arterial Blood Ionized Calcium Coronavirus (PCR) SARS-CoV-2 IgG Ab 07/13/20 07/13/20 07/13/20 07:20 07:20 07:20 WBC 20.5 H RBC Hgb Hct MCH MCHC Plt Count Lymph % (Auto) Lymph # (Auto) Seg Neutrophils % Seg Neuts % (Manual) 93.0 H Lymphocytes % (Manual) 3.0 L Eosinophils % (Manual) Seg Neutrophils # Seg Neutrophils # Man 19.1 H Lymphocytes # (Manual) 0.6 L Eosinophils # (Manual) D-Dimer 826.36 H ABG pH POC ABG pCO2 POC ABG pO2 ABG pO2 ABG HCO3 ABG O2 Saturation ABG Base Excess ABG Hemoglobin ABG Oxyhemoglobin ABG Sodium ABG Potassium ABG Chloride ABG Glucose Oxyhemoglobin Sodium Chloride Carbon Dioxide 31 H BUN 25 H Creatinine Glucose 163 H POC Glucose Lactic Acid Calcium 8.1 L Ferritin AST ALT Lactate Dehydrogenase 512 H C-Reactive Protein 1.80 H Total Protein 5.8 L Albumin 3.2 L Triglycerides Arterial Blood Glucose Arterial Blood Ionized Calcium Coronavirus (PCR) SARS-CoV-2 IgG Ab 07/13/20 07/13/20 07/13/20 07:20 11:37 17:20 WBC RBC Hgb Hct MCH MCHC Plt Count Lymph % (Auto) Lymph # (Auto) Seg Neutrophils % Seg Neuts % (Manual) Lymphocytes % (Manual) Eosinophils % (Manual) Seg Neutrophils # Seg Neutrophils # Man Lymphocytes # (Manual) Eosinophils # (Manual) D-Dimer ABG pH POC ABG pCO2 POC ABG pO2 ABG pO2 ABG HCO3 ABG O2 Saturation ABG Base Excess ABG Hemoglobin ABG Oxyhemoglobin ABG Sodium ABG Potassium ABG Chloride ABG Glucose Oxyhemoglobin Sodium Chloride Carbon Dioxide BUN Creatinine Glucose POC Glucose 232 H 210 H Lactic Acid Calcium Ferritin 219.8 H AST ALT Lactate Dehydrogenase C-Reactive Protein Total Protein Albumin Triglycerides Arterial Blood Glucose Arterial Blood Ionized Calcium Coronavirus (PCR) SARS-CoV-2 IgG Ab 07/13/20 07/13/20 07/14/20 23:57 Unknown 05:22 WBC RBC Hgb Hct MCH MCHC Plt Count Lymph % (Auto) Lymph # (Auto) Seg Neutrophils % Seg Neuts % (Manual) Lymphocytes % (Manual) Eosinophils % (Manual) Seg Neutrophils # Seg Neutrophils # Man Lymphocytes # (Manual) Eosinophils # (Manual) D-Dimer ABG pH 7.341 L POC ABG pCO2 POC ABG pO2 133.0 H ABG pO2 56.5 L ABG HCO3 29.7 H ABG O2 Saturation 89.3 L ABG Base Excess ABG Hemoglobin 11.0 L ABG Oxyhemoglobin ABG Sodium ABG Potassium ABG Chloride ABG Glucose 207 H Oxyhemoglobin 87.7 L Sodium Chloride Carbon Dioxide BUN Creatinine Glucose POC Glucose 190 H Lactic Acid Calcium Ferritin AST ALT Lactate Dehydrogenase C-Reactive Protein Total Protein Albumin Triglycerides Arterial Blood Glucose 207 H Arterial Blood Ionized Calcium 4.5 L Coronavirus (PCR) SARS-CoV-2 IgG Ab 07/14/20 07/14/20 07/14/20 05:54 11:16 17:50 WBC RBC Hgb Hct MCH MCHC Plt Count Lymph % (Auto) Lymph # (Auto) Seg Neutrophils % Seg Neuts % (Manual) Lymphocytes % (Manual) Eosinophils % (Manual) Seg Neutrophils # Seg Neutrophils # Man Lymphocytes # (Manual) Eosinophils # (Manual) D-Dimer ABG pH POC ABG pCO2 POC ABG pO2 ABG pO2 ABG HCO3 ABG O2 Saturation ABG Base Excess ABG Hemoglobin ABG Oxyhemoglobin ABG Sodium ABG Potassium ABG Chloride ABG Glucose Oxyhemoglobin Sodium Chloride Carbon Dioxide BUN Creatinine Glucose POC Glucose 206 H 196 H 205 H Lactic Acid Calcium Ferritin AST ALT Lactate Dehydrogenase C-Reactive Protein Total Protein Albumin Triglycerides Arterial Blood Glucose Arterial Blood Ionized Calcium Coronavirus (PCR) SARS-CoV-2 IgG Ab 07/14/20 07/15/20 07/15/20 23:28 03:16 06:12 WBC RBC Hgb Hct MCH MCHC Plt Count Lymph % (Auto) Lymph # (Auto) Seg Neutrophils % Seg Neuts % (Manual) Lymphocytes % (Manual) Eosinophils % (Manual) Seg Neutrophils # Seg Neutrophils # Man Lymphocytes # (Manual) Eosinophils # (Manual) D-Dimer ABG pH POC ABG pCO2 49.2 H POC ABG pO2 120.3 H ABG pO2 ABG HCO3 ABG O2 Saturation ABG Base Excess ABG Hemoglobin 9.5 L ABG Oxyhemoglobin ABG Sodium ABG Potassium ABG Chloride ABG Glucose 148 H Oxyhemoglobin Sodium Chloride Carbon Dioxide BUN Creatinine Glucose POC Glucose 160 H 178 H Lactic Acid Calcium Ferritin AST ALT Lactate Dehydrogenase C-Reactive Protein Total Protein Albumin Triglycerides Arterial Blood Glucose 148 H Arterial Blood Ionized Calcium Coronavirus (PCR) SARS-CoV-2 IgG Ab 07/15/20 07/15/20 07/15/20 09:00 12:32 14:30 WBC RBC Hgb Hct MCH MCHC Plt Count Lymph % (Auto) Lymph # (Auto) Seg Neutrophils % Seg Neuts % (Manual) Lymphocytes % (Manual) Eosinophils % (Manual) Seg Neutrophils # Seg Neutrophils # Man Lymphocytes # (Manual) Eosinophils # (Manual) D-Dimer ABG pH POC ABG pCO2 POC ABG pO2 ABG pO2 ABG HCO3 ABG O2 Saturation ABG Base Excess ABG Hemoglobin ABG Oxyhemoglobin ABG Sodium ABG Potassium ABG Chloride ABG Glucose Oxyhemoglobin Sodium Chloride Carbon Dioxide BUN Creatinine Glucose POC Glucose 173 H Lactic Acid Calcium Ferritin AST ALT Lactate Dehydrogenase 531 H C-Reactive Protein Total Protein Albumin Triglycerides Arterial Blood Glucose Arterial Blood Ionized Calcium Coronavirus (PCR) SARS-CoV-2 IgG Ab Reactive A 07/15/20 07/15/20 07/16/20 18:24 23:35 04:03 WBC RBC Hgb Hct MCH MCHC Plt Count Lymph % (Auto) Lymph # (Auto) Seg Neutrophils % Seg Neuts % (Manual) Lymphocytes % (Manual) Eosinophils % (Manual) Seg Neutrophils # Seg Neutrophils # Man Lymphocytes # (Manual) Eosinophils # (Manual) D-Dimer ABG pH POC ABG pCO2 POC ABG pO2 ABG pO2 72.7 L ABG HCO3 35.5 H ABG O2 Saturation ABG Base Excess 9.4 H ABG Hemoglobin 10.6 L ABG Oxyhemoglobin ABG Sodium ABG Potassium ABG Chloride ABG Glucose Oxyhemoglobin 93.6 L Sodium Chloride Carbon Dioxide BUN Creatinine Glucose POC Glucose 173 H 181 H Lactic Acid Calcium Ferritin AST ALT Lactate Dehydrogenase C-Reactive Protein Total Protein Albumin Triglycerides Arterial Blood Glucose Arterial Blood Ionized Calcium Coronavirus (PCR) SARS-CoV-2 IgG Ab 07/16/20 07/16/20 07/16/20 05:35 09:00 09:00 WBC 16.5 H RBC 3.59 L Hgb Hct MCH MCHC Plt Count Lymph % (Auto) Lymph # (Auto) Seg Neutrophils % Seg Neuts % (Manual) 96.0 H Lymphocytes % (Manual) 3.0 L Eosinophils % (Manual) Seg Neutrophils # Seg Neutrophils # Man 15.8 H Lymphocytes # (Manual) 0.5 L Eosinophils # (Manual) D-Dimer ABG pH POC ABG pCO2 POC ABG pO2 ABG pO2 ABG HCO3 ABG O2 Saturation ABG Base Excess ABG Hemoglobin ABG Oxyhemoglobin ABG Sodium ABG Potassium ABG Chloride ABG Glucose Oxyhemoglobin Sodium Chloride Carbon Dioxide 39 H D BUN 25 H Creatinine 0.4 L Glucose 167 H POC Glucose 129 H Lactic Acid Calcium 8.3 L Ferritin AST ALT Lactate Dehydrogenase C-Reactive Protein Total Protein Albumin Triglycerides Arterial Blood Glucose Arterial Blood Ionized Calcium Coronavirus (PCR) SARS-CoV-2 IgG Ab 07/16/20 07/16/20 07/17/20 12:32 18:28 00:09 WBC RBC Hgb Hct MCH MCHC Plt Count Lymph % (Auto) Lymph # (Auto) Seg Neutrophils % Seg Neuts % (Manual) Lymphocytes % (Manual) Eosinophils % (Manual) Seg Neutrophils # Seg Neutrophils # Man Lymphocytes # (Manual) Eosinophils # (Manual) D-Dimer ABG pH POC ABG pCO2 POC ABG pO2 ABG pO2 ABG HCO3 ABG O2 Saturation ABG Base Excess ABG Hemoglobin ABG Oxyhemoglobin ABG Sodium ABG Potassium ABG Chloride ABG Glucose Oxyhemoglobin Sodium Chloride Carbon Dioxide BUN Creatinine Glucose POC Glucose 187 H 174 H 184 H Lactic Acid Calcium Ferritin AST ALT Lactate Dehydrogenase C-Reactive Protein Total Protein Albumin Triglycerides Arterial Blood Glucose Arterial Blood Ionized Calcium Coronavirus (PCR) SARS-CoV-2 IgG Ab 07/17/20 07/17/20 07/17/20 04:30 05:47 13:03 WBC RBC Hgb Hct MCH MCHC Plt Count Lymph % (Auto) Lymph # (Auto) Seg Neutrophils % Seg Neuts % (Manual) Lymphocytes % (Manual) Eosinophils % (Manual) Seg Neutrophils # Seg Neutrophils # Man Lymphocytes # (Manual) Eosinophils # (Manual) D-Dimer ABG pH POC ABG pCO2 POC ABG pO2 ABG pO2 ABG HCO3 38.1 H ABG O2 Saturation ABG Base Excess 11.3 H ABG Hemoglobin 10.5 L ABG Oxyhemoglobin ABG Sodium ABG Potassium ABG Chloride ABG Glucose Oxyhemoglobin Sodium Chloride Carbon Dioxide BUN Creatinine Glucose POC Glucose 135 H 210 H Lactic Acid Calcium Ferritin AST ALT Lactate Dehydrogenase C-Reactive Protein Total Protein Albumin Triglycerides Arterial Blood Glucose Arterial Blood Ionized Calcium Coronavirus (PCR) SARS-CoV-2 IgG Ab 07/17/20 07/17/20 07/18/20 16:50 23:39 04:01 WBC RBC Hgb Hct MCH MCHC Plt Count Lymph % (Auto) Lymph # (Auto) Seg Neutrophils % Seg Neuts % (Manual) Lymphocytes % (Manual) Eosinophils % (Manual) Seg Neutrophils # Seg Neutrophils # Man Lymphocytes # (Manual) Eosinophils # (Manual) D-Dimer ABG pH POC ABG pCO2 56.8 H POC ABG pO2 61.9 L ABG pO2 ABG HCO3 ABG O2 Saturation ABG Base Excess ABG Hemoglobin 11.7 L ABG Oxyhemoglobin ABG Sodium 134.2 L ABG Potassium 4.7 H ABG Chloride 97.0 L ABG Glucose 173 H Oxyhemoglobin Sodium Chloride Carbon Dioxide BUN Creatinine Glucose POC Glucose 193 H 163 H Lactic Acid Calcium Ferritin AST ALT Lactate Dehydrogenase C-Reactive Protein Total Protein Albumin Triglycerides Arterial Blood Glucose 173 H Arterial Blood Ionized Calcium Coronavirus (PCR) SARS-CoV-2 IgG Ab 07/18/20 07/18/20 07/18/20 05:41 12:03 17:26 WBC RBC Hgb Hct MCH MCHC Plt Count Lymph % (Auto) Lymph # (Auto) Seg Neutrophils % Seg Neuts % (Manual) Lymphocytes % (Manual) Eosinophils % (Manual) Seg Neutrophils # Seg Neutrophils # Man Lymphocytes # (Manual) Eosinophils # (Manual) D-Dimer ABG pH POC ABG pCO2 POC ABG pO2 ABG pO2 ABG HCO3 ABG O2 Saturation ABG Base Excess ABG Hemoglobin ABG Oxyhemoglobin ABG Sodium ABG Potassium ABG Chloride ABG Glucose Oxyhemoglobin Sodium Chloride Carbon Dioxide BUN Creatinine Glucose POC Glucose 153 H 177 H 160 H Lactic Acid Calcium Ferritin AST ALT Lactate Dehydrogenase C-Reactive Protein Total Protein Albumin Triglycerides Arterial Blood Glucose Arterial Blood Ionized Calcium Coronavirus (PCR) SARS-CoV-2 IgG Ab 07/18/20 07/19/20 07/19/20 23:58 04:15 05:05 WBC RBC Hgb Hct MCH MCHC Plt Count Lymph % (Auto) Lymph # (Auto) Seg Neutrophils % Seg Neuts % (Manual) Lymphocytes % (Manual) Eosinophils % (Manual) Seg Neutrophils # Seg Neutrophils # Man Lymphocytes # (Manual) Eosinophils # (Manual) D-Dimer ABG pH 7.465 H POC ABG pCO2 49.1 H POC ABG pO2 49.4 L ABG pO2 ABG HCO3 ABG O2 Saturation ABG Base Excess ABG Hemoglobin 11.6 L ABG Oxyhemoglobin ABG Sodium 132.3 L ABG Potassium ABG Chloride 97.0 L ABG Glucose 148 H Oxyhemoglobin Sodium Chloride Carbon Dioxide BUN Creatinine Glucose POC Glucose 144 H 117 H Lactic Acid Calcium Ferritin AST ALT Lactate Dehydrogenase C-Reactive Protein Total Protein Albumin Triglycerides Arterial Blood Glucose 148 H Arterial Blood Ionized Calcium Coronavirus (PCR) SARS-CoV-2 IgG Ab 07/19/20 07/19/20 07/19/20 08:30 08:30 13:21 WBC 17.2 H RBC 3.59 L Hgb Hct MCH MCHC Plt Count Lymph % (Auto) Lymph # (Auto) Seg Neutrophils % Seg Neuts % (Manual) Lymphocytes % (Manual) Eosinophils % (Manual) Seg Neutrophils # Seg Neutrophils # Man Lymphocytes # (Manual) Eosinophils # (Manual) D-Dimer ABG pH POC ABG pCO2 POC ABG pO2 ABG pO2 ABG HCO3 ABG O2 Saturation ABG Base Excess ABG Hemoglobin ABG Oxyhemoglobin ABG Sodium ABG Potassium ABG Chloride ABG Glucose Oxyhemoglobin Sodium Chloride 95.7 L Carbon Dioxide 37 H BUN 20 H Creatinine 0.4 L Glucose 125 H POC Glucose 137 H Lactic Acid Calcium 8.1 L Ferritin AST ALT Lactate Dehydrogenase C-Reactive Protein Total Protein Albumin Triglycerides Arterial Blood Glucose Arterial Blood Ionized Calcium Coronavirus (PCR) SARS-CoV-2 IgG Ab 07/19/20 07/19/20 07/20/20 16:29 17:28 00:25 WBC RBC Hgb Hct MCH MCHC Plt Count Lymph % (Auto) Lymph # (Auto) Seg Neutrophils % Seg Neuts % (Manual) Lymphocytes % (Manual) Eosinophils % (Manual) Seg Neutrophils # Seg Neutrophils # Man Lymphocytes # (Manual) Eosinophils # (Manual) D-Dimer ABG pH POC ABG pCO2 53.4 H POC ABG pO2 71.0 L ABG pO2 ABG HCO3 ABG O2 Saturation ABG Base Excess ABG Hemoglobin 11.2 L ABG Oxyhemoglobin 93.6 L ABG Sodium 130.9 L ABG Potassium ABG Chloride 95.0 L ABG Glucose 188 H Oxyhemoglobin Sodium Chloride Carbon Dioxide BUN Creatinine Glucose POC Glucose 174 H 188 H Lactic Acid Calcium Ferritin AST ALT Lactate Dehydrogenase C-Reactive Protein Total Protein Albumin Triglycerides Arterial Blood Glucose 188 H Arterial Blood Ionized Calcium 4.4 L Coronavirus (PCR) SARS-CoV-2 IgG Ab 07/20/20 07/20/20 07/20/20 04:14 05:23 12:12 WBC RBC Hgb Hct MCH MCHC Plt Count Lymph % (Auto) Lymph # (Auto) Seg Neutrophils % Seg Neuts % (Manual) Lymphocytes % (Manual) Eosinophils % (Manual) Seg Neutrophils # Seg Neutrophils # Man Lymphocytes # (Manual) Eosinophils # (Manual) D-Dimer ABG pH POC ABG pCO2 52.7 H POC ABG pO2 59.5 L ABG pO2 ABG HCO3 ABG O2 Saturation ABG Base Excess ABG Hemoglobin 10.6 L ABG Oxyhemoglobin ABG Sodium 134.4 L ABG Potassium ABG Chloride ABG Glucose 176 H Oxyhemoglobin Sodium Chloride Carbon Dioxide BUN Creatinine Glucose POC Glucose 212 H 190 H Lactic Acid Calcium Ferritin AST ALT Lactate Dehydrogenase C-Reactive Protein Total Protein Albumin Triglycerides Arterial Blood Glucose 176 H Arterial Blood Ionized Calcium 4.5 L Coronavirus (PCR) SARS-CoV-2 IgG Ab 07/20/20 07/21/20 07/21/20 16:59 00:01 04:30 WBC RBC Hgb Hct MCH MCHC Plt Count Lymph % (Auto) Lymph # (Auto) Seg Neutrophils % Seg Neuts % (Manual) Lymphocytes % (Manual) Eosinophils % (Manual) Seg Neutrophils # Seg Neutrophils # Man Lymphocytes # (Manual) Eosinophils # (Manual) D-Dimer ABG pH 7.468 H POC ABG pCO2 POC ABG pO2 63.3 L ABG pO2 ABG HCO3 ABG O2 Saturation ABG Base Excess ABG Hemoglobin 11 L ABG Oxyhemoglobin ABG Sodium 135.0 L ABG Potassium ABG Chloride ABG Glucose 204 H Oxyhemoglobin Sodium Chloride Carbon Dioxide BUN Creatinine Glucose POC Glucose 201 H 177 H Lactic Acid Calcium Ferritin AST ALT Lactate Dehydrogenase C-Reactive Protein Total Protein Albumin Triglycerides Arterial Blood Glucose 204 H Arterial Blood Ionized Calcium 4.5 L Coronavirus (PCR) SARS-CoV-2 IgG Ab 07/21/20 07/21/20 07/21/20 05:26 11:50 17:16 WBC RBC Hgb Hct MCH MCHC Plt Count Lymph % (Auto) Lymph # (Auto) Seg Neutrophils % Seg Neuts % (Manual) Lymphocytes % (Manual) Eosinophils % (Manual) Seg Neutrophils # Seg Neutrophils # Man Lymphocytes # (Manual) Eosinophils # (Manual) D-Dimer ABG pH POC ABG pCO2 POC ABG pO2 ABG pO2 ABG HCO3 ABG O2 Saturation ABG Base Excess ABG Hemoglobin ABG Oxyhemoglobin ABG Sodium ABG Potassium ABG Chloride ABG Glucose Oxyhemoglobin Sodium Chloride Carbon Dioxide BUN Creatinine Glucose POC Glucose 175 H 157 H 148 H Lactic Acid Calcium Ferritin AST ALT Lactate Dehydrogenase C-Reactive Protein Total Protein Albumin Triglycerides Arterial Blood Glucose Arterial Blood Ionized Calcium Coronavirus (PCR) SARS-CoV-2 IgG Ab 07/22/20 07/22/20 07/22/20 00:01 03:26 05:16 WBC RBC Hgb Hct MCH MCHC Plt Count Lymph % (Auto) Lymph # (Auto) Seg Neutrophils % Seg Neuts % (Manual) Lymphocytes % (Manual) Eosinophils % (Manual) Seg Neutrophils # Seg Neutrophils # Man Lymphocytes # (Manual) Eosinophils # (Manual) D-Dimer ABG pH POC ABG pCO2 POC ABG pO2 54.2 L ABG pO2 ABG HCO3 ABG O2 Saturation ABG Base Excess ABG Hemoglobin 10.9 L ABG Oxyhemoglobin ABG Sodium 133.7 L ABG Potassium ABG Chloride ABG Glucose 217 H Oxyhemoglobin Sodium Chloride Carbon Dioxide BUN Creatinine Glucose POC Glucose 172 H 182 H Lactic Acid Calcium Ferritin AST ALT Lactate Dehydrogenase C-Reactive Protein Total Protein Albumin Triglycerides Arterial Blood Glucose 217 H Arterial Blood Ionized Calcium 4.5 L Coronavirus (PCR) SARS-CoV-2 IgG Ab 07/22/20 07/22/20 07/23/20 11:43 17:08 04:00 WBC 11.6 H RBC 3.54 L Hgb Hct MCH MCHC Plt Count Lymph % (Auto) Lymph # (Auto) Seg Neutrophils % Seg Neuts % (Manual) 94.0 H Lymphocytes % (Manual) 5.0 L Eosinophils % (Manual) Seg Neutrophils # Seg Neutrophils # Man 10.9 H Lymphocytes # (Manual) 0.6 L Eosinophils # (Manual) D-Dimer ABG pH POC ABG pCO2 POC ABG pO2 ABG pO2 ABG HCO3 ABG O2 Saturation ABG Base Excess ABG Hemoglobin ABG Oxyhemoglobin ABG Sodium ABG Potassium ABG Chloride ABG Glucose Oxyhemoglobin Sodium Chloride Carbon Dioxide BUN Creatinine Glucose POC Glucose 159 H 163 H Lactic Acid Calcium Ferritin AST ALT Lactate Dehydrogenase C-Reactive Protein Total Protein Albumin Triglycerides Arterial Blood Glucose Arterial Blood Ionized Calcium Coronavirus (PCR) SARS-CoV-2 IgG Ab 07/23/20 07/23/20 07/23/20 04:00 04:53 04:54 WBC RBC Hgb Hct MCH MCHC Plt Count Lymph % (Auto) Lymph # (Auto) Seg Neutrophils % Seg Neuts % (Manual) Lymphocytes % (Manual) Eosinophils % (Manual) Seg Neutrophils # Seg Neutrophils # Man Lymphocytes # (Manual) Eosinophils # (Manual) D-Dimer ABG pH 7.453 H POC ABG pCO2 POC ABG pO2 ABG pO2 ABG HCO3 32.4 H ABG O2 Saturation ABG Base Excess 7.5 H ABG Hemoglobin 10.7 L ABG Oxyhemoglobin ABG Sodium ABG Potassium ABG Chloride ABG Glucose Oxyhemoglobin Sodium Chloride Carbon Dioxide 35 H BUN Creatinine 0.4 L Glucose 112 H POC Glucose 169 H Lactic Acid Calcium 8.2 L Ferritin AST ALT Lactate Dehydrogenase C-Reactive Protein Total Protein Albumin Triglycerides Arterial Blood Glucose Arterial Blood Ionized Calcium Coronavirus (PCR) SARS-CoV-2 IgG Ab 07/23/20 07/23/20 07/23/20 11:50 23:19 Unknown WBC RBC Hgb Hct MCH MCHC Plt Count Lymph % (Auto) Lymph # (Auto) Seg Neutrophils % Seg Neuts % (Manual) Lymphocytes % (Manual) Eosinophils % (Manual) Seg Neutrophils # Seg Neutrophils # Man Lymphocytes # (Manual) Eosinophils # (Manual) D-Dimer ABG pH POC ABG pCO2 POC ABG pO2 ABG pO2 ABG HCO3 ABG O2 Saturation ABG Base Excess ABG Hemoglobin ABG Oxyhemoglobin ABG Sodium ABG Potassium ABG Chloride ABG Glucose Oxyhemoglobin Sodium Chloride Carbon Dioxide BUN Creatinine Glucose POC Glucose 118 H 168 H Lactic Acid Calcium Ferritin AST ALT Lactate Dehydrogenase C-Reactive Protein Total Protein Albumin Triglycerides Arterial Blood Glucose Arterial Blood Ionized Calcium Coronavirus (PCR) Positive A SARS-CoV-2 IgG Ab 07/24/20 07/24/20 07/24/20 04:11 05:37 11:42 WBC RBC Hgb Hct MCH MCHC Plt Count Lymph % (Auto) Lymph # (Auto) Seg Neutrophils % Seg Neuts % (Manual) Lymphocytes % (Manual) Eosinophils % (Manual) Seg Neutrophils # Seg Neutrophils # Man Lymphocytes # (Manual) Eosinophils # (Manual) D-Dimer ABG pH POC ABG pCO2 POC ABG pO2 ABG pO2 54.4 L ABG HCO3 34.3 H ABG O2 Saturation 89.0 L ABG Base Excess 8.5 H ABG Hemoglobin 11.0 L ABG Oxyhemoglobin ABG Sodium ABG Potassium ABG Chloride ABG Glucose Oxyhemoglobin 87.0 L Sodium Chloride Carbon Dioxide BUN Creatinine Glucose POC Glucose 115 H 166 H Lactic Acid Calcium Ferritin AST ALT Lactate Dehydrogenase C-Reactive Protein Total Protein Albumin Triglycerides Arterial Blood Glucose Arterial Blood Ionized Calcium Coronavirus (PCR) SARS-CoV-2 IgG Ab 07/24/20 07/24/20 07/25/20 17:39 23:38 03:53 WBC RBC Hgb Hct MCH MCHC Plt Count Lymph % (Auto) Lymph # (Auto) Seg Neutrophils % Seg Neuts % (Manual) Lymphocytes % (Manual) Eosinophils % (Manual) Seg Neutrophils # Seg Neutrophils # Man Lymphocytes # (Manual) Eosinophils # (Manual) D-Dimer ABG pH POC ABG pCO2 POC ABG pO2 ABG pO2 175.9 H ABG HCO3 34.0 H ABG O2 Saturation 99.1 H ABG Base Excess 8.2 H ABG Hemoglobin 10.6 L ABG Oxyhemoglobin ABG Sodium ABG Potassium ABG Chloride ABG Glucose Oxyhemoglobin Sodium Chloride Carbon Dioxide BUN Creatinine Glucose POC Glucose 150 H 139 H Lactic Acid Calcium Ferritin AST ALT Lactate Dehydrogenase C-Reactive Protein Total Protein Albumin Triglycerides Arterial Blood Glucose Arterial Blood Ionized Calcium Coronavirus (PCR) SARS-CoV-2 IgG Ab 07/25/20 07/25/20 07/25/20 05:47 12:09 23:46 WBC RBC Hgb Hct MCH MCHC Plt Count Lymph % (Auto) Lymph # (Auto) Seg Neutrophils % Seg Neuts % (Manual) Lymphocytes % (Manual) Eosinophils % (Manual) Seg Neutrophils # Seg Neutrophils # Man Lymphocytes # (Manual) Eosinophils # (Manual) D-Dimer ABG pH POC ABG pCO2 POC ABG pO2 ABG pO2 ABG HCO3 ABG O2 Saturation ABG Base Excess ABG Hemoglobin ABG Oxyhemoglobin ABG Sodium ABG Potassium ABG Chloride ABG Glucose Oxyhemoglobin Sodium Chloride Carbon Dioxide BUN Creatinine Glucose POC Glucose 144 H 152 H 116 H Lactic Acid Calcium Ferritin AST ALT Lactate Dehydrogenase C-Reactive Protein Total Protein Albumin Triglycerides Arterial Blood Glucose Arterial Blood Ionized Calcium Coronavirus (PCR) SARS-CoV-2 IgG Ab 07/26/20 07/26/20 07/26/20 03:48 05:36 11:28 WBC RBC Hgb Hct MCH MCHC Plt Count Lymph % (Auto) Lymph # (Auto) Seg Neutrophils % Seg Neuts % (Manual) Lymphocytes % (Manual) Eosinophils % (Manual) Seg Neutrophils # Seg Neutrophils # Man Lymphocytes # (Manual) Eosinophils # (Manual) D-Dimer ABG pH POC ABG pCO2 POC ABG pO2 ABG pO2 73.4 L ABG HCO3 35.0 H ABG O2 Saturation ABG Base Excess 8.3 H ABG Hemoglobin 9.8 L ABG Oxyhemoglobin ABG Sodium ABG Potassium ABG Chloride ABG Glucose Oxyhemoglobin 93.7 L Sodium Chloride Carbon Dioxide BUN Creatinine Glucose POC Glucose 136 H 145 H Lactic Acid Calcium Ferritin AST ALT Lactate Dehydrogenase C-Reactive Protein Total Protein Albumin Triglycerides Arterial Blood Glucose Arterial Blood Ionized Calcium Coronavirus (PCR) SARS-CoV-2 IgG Ab 07/26/20 07/26/20 07/26/20 14:23 17:19 23:33 WBC 12.0 H RBC 3.12 L Hgb 9.5 L Hct 28.6 L MCH MCHC Plt Count Lymph % (Auto) 4.2 L Lymph # (Auto) 0.5 L Seg Neutrophils % 89.8 H Seg Neuts % (Manual) Lymphocytes % (Manual) Eosinophils % (Manual) Seg Neutrophils # 10.8 H Seg Neutrophils # Man Lymphocytes # (Manual) Eosinophils # (Manual) D-Dimer ABG pH POC ABG pCO2 POC ABG pO2 ABG pO2 ABG HCO3 ABG O2 Saturation ABG Base Excess ABG Hemoglobin ABG Oxyhemoglobin ABG Sodium ABG Potassium ABG Chloride ABG Glucose Oxyhemoglobin Sodium Chloride Carbon Dioxide BUN Creatinine Glucose POC Glucose 202 H 122 H Lactic Acid Calcium Ferritin AST ALT Lactate Dehydrogenase C-Reactive Protein Total Protein Albumin Triglycerides Arterial Blood Glucose Arterial Blood Ionized Calcium Coronavirus (PCR) SARS-CoV-2 IgG Ab 07/27/20 07/27/20 07/27/20 04:30 05:54 12:06 WBC RBC Hgb Hct MCH MCHC Plt Count Lymph % (Auto) Lymph # (Auto) Seg Neutrophils % Seg Neuts % (Manual) Lymphocytes % (Manual) Eosinophils % (Manual) Seg Neutrophils # Seg Neutrophils # Man Lymphocytes # (Manual) Eosinophils # (Manual) D-Dimer ABG pH POC ABG pCO2 POC ABG pO2 ABG pO2 49.0 L ABG HCO3 35.7 H ABG O2 Saturation 87.6 L ABG Base Excess 10.1 H ABG Hemoglobin 11.5 L ABG Oxyhemoglobin ABG Sodium ABG Potassium ABG Chloride ABG Glucose Oxyhemoglobin 85.4 L Sodium Chloride Carbon Dioxide BUN Creatinine Glucose POC Glucose 164 H 149 H Lactic Acid Calcium Ferritin AST ALT Lactate Dehydrogenase C-Reactive Protein Total Protein Albumin Triglycerides Arterial Blood Glucose Arterial Blood Ionized Calcium Coronavirus (PCR) SARS-CoV-2 IgG Ab 07/27/20 07/27/20 07/27/20 13:00 14:18 14:18 WBC 12.2 H RBC 3.33 L Hgb 10.0 L Hct MCH MCHC Plt Count Lymph % (Auto) Lymph # (Auto) Seg Neutrophils % Seg Neuts % (Manual) 90.0 H Lymphocytes % (Manual) 7.0 L Eosinophils % (Manual) Seg Neutrophils # Seg Neutrophils # Man 11.0 H Lymphocytes # (Manual) 0.9 L Eosinophils # (Manual) D-Dimer ABG pH 7.313 L POC ABG pCO2 POC ABG pO2 ABG pO2 107.5 H ABG HCO3 37.6 H ABG O2 Saturation ABG Base Excess 8.1 H ABG Hemoglobin 10.1 L ABG Oxyhemoglobin ABG Sodium ABG Potassium ABG Chloride ABG Glucose Oxyhemoglobin Sodium Chloride 97.6 L Carbon Dioxide 35 H BUN 18 H Creatinine Glucose 135 H POC Glucose Lactic Acid Calcium 8.3 L Ferritin AST ALT Lactate Dehydrogenase C-Reactive Protein Total Protein Albumin Triglycerides Arterial Blood Glucose Arterial Blood Ionized Calcium Coronavirus (PCR) SARS-CoV-2 IgG Ab 07/27/20 07/27/20 07/28/20 17:09 23:14 04:15 WBC RBC Hgb Hct MCH MCHC Plt Count Lymph % (Auto) Lymph # (Auto) Seg Neutrophils % Seg Neuts % (Manual) Lymphocytes % (Manual) Eosinophils % (Manual) Seg Neutrophils # Seg Neutrophils # Man Lymphocytes # (Manual) Eosinophils # (Manual) D-Dimer ABG pH 7.317 L POC ABG pCO2 POC ABG pO2 ABG pO2 130.3 H ABG HCO3 40.9 H ABG O2 Saturation ABG Base Excess 13.5 H ABG Hemoglobin 5.8 L ABG Oxyhemoglobin ABG Sodium ABG Potassium ABG Chloride ABG Glucose Oxyhemoglobin Sodium Chloride Carbon Dioxide BUN Creatinine Glucose POC Glucose 115 H 139 H Lactic Acid Calcium Ferritin AST ALT Lactate Dehydrogenase C-Reactive Protein Total Protein Albumin Triglycerides Arterial Blood Glucose Arterial Blood Ionized Calcium Coronavirus (PCR) SARS-CoV-2 IgG Ab 07/28/20 07/28/20 07/28/20 05:34 09:20 09:20 WBC RBC 2.89 L Hgb 9.5 L Hct 26.6 L MCH 33 H MCHC 36 H Plt Count 123 L Lymph % (Auto) Lymph # (Auto) Seg Neutrophils % Seg Neuts % (Manual) 89.0 H Lymphocytes % (Manual) 5.0 L Eosinophils % (Manual) Seg Neutrophils # Seg Neutrophils # Man 8.6 H Lymphocytes # (Manual) 0.5 L Eosinophils # (Manual) D-Dimer ABG pH POC ABG pCO2 POC ABG pO2 ABG pO2 ABG HCO3 ABG O2 Saturation ABG Base Excess ABG Hemoglobin ABG Oxyhemoglobin ABG Sodium ABG Potassium ABG Chloride ABG Glucose Oxyhemoglobin Sodium 134 L Chloride 95.6 L Carbon Dioxide 39 H BUN Creatinine 0.3 L Glucose 131 H POC Glucose 130 H Lactic Acid Calcium 7.9 L Ferritin AST ALT Lactate Dehydrogenase C-Reactive Protein Total Protein Albumin Triglycerides Arterial Blood Glucose Arterial Blood Ionized Calcium Coronavirus (PCR) SARS-CoV-2 IgG Ab 07/28/20 07/28/20 07/28/20 11:50 18:36 23:22 WBC RBC Hgb Hct MCH MCHC Plt Count Lymph % (Auto) Lymph # (Auto) Seg Neutrophils % Seg Neuts % (Manual) Lymphocytes % (Manual) Eosinophils % (Manual) Seg Neutrophils # Seg Neutrophils # Man Lymphocytes # (Manual) Eosinophils # (Manual) D-Dimer ABG pH POC ABG pCO2 POC ABG pO2 ABG pO2 ABG HCO3 ABG O2 Saturation ABG Base Excess ABG Hemoglobin ABG Oxyhemoglobin ABG Sodium ABG Potassium ABG Chloride ABG Glucose Oxyhemoglobin Sodium Chloride Carbon Dioxide BUN Creatinine Glucose POC Glucose 128 H 119 H 122 H Lactic Acid Calcium Ferritin AST ALT Lactate Dehydrogenase C-Reactive Protein Total Protein Albumin Triglycerides Arterial Blood Glucose Arterial Blood Ionized Calcium Coronavirus (PCR) SARS-CoV-2 IgG Ab 07/29/20 07/29/20 07/29/20 03:18 07:54 07:54 WBC 11.1 H RBC 3.49 L Hgb Hct MCH MCHC Plt Count 139 L Lymph % (Auto) Lymph # (Auto) Seg Neutrophils % Seg Neuts % (Manual) 90.0 H Lymphocytes % (Manual) 1.0 L Eosinophils % (Manual) 5.0 H Seg Neutrophils # Seg Neutrophils # Man 10.0 H Lymphocytes # (Manual) 0.1 L Eosinophils # (Manual) 0.6 H D-Dimer ABG pH POC ABG pCO2 69.5 H POC ABG pO2 109.3 H ABG pO2 ABG HCO3 ABG O2 Saturation ABG Base Excess ABG Hemoglobin 10.8 L ABG Oxyhemoglobin ABG Sodium ABG Potassium ABG Chloride 95.0 L ABG Glucose 138 H Oxyhemoglobin Sodium Chloride 94.5 L Carbon Dioxide 40 H BUN Creatinine 0.5 L D Glucose 104 H POC Glucose Lactic Acid Calcium Ferritin AST ALT Lactate Dehydrogenase C-Reactive Protein Total Protein Albumin Triglycerides Arterial Blood Glucose 138 H Arterial Blood Ionized Calcium Coronavirus (PCR) SARS-CoV-2 IgG Ab 07/29/20 07/29/20 07/29/20 11:05 18:17 19:41 WBC RBC Hgb Hct MCH MCHC Plt Count Lymph % (Auto) Lymph # (Auto) Seg Neutrophils % Seg Neuts % (Manual) Lymphocytes % (Manual) Eosinophils % (Manual) Seg Neutrophils # Seg Neutrophils # Man Lymphocytes # (Manual) Eosinophils # (Manual) D-Dimer ABG pH 7.305 L POC ABG pCO2 73.3 H 66.7 H POC ABG pO2 28.2 L 32.7 L ABG pO2 ABG HCO3 ABG O2 Saturation ABG Base Excess ABG Hemoglobin 11.8 L 11.5 L ABG Oxyhemoglobin ABG Sodium ABG Potassium ABG Chloride 94.0 L 95.0 L ABG Glucose 207 H 141 H Oxyhemoglobin Sodium Chloride Carbon Dioxide BUN Creatinine Glucose POC Glucose 113 H Lactic Acid Calcium Ferritin AST ALT Lactate Dehydrogenase C-Reactive Protein Total Protein Albumin Triglycerides Arterial Blood Glucose 207 H 141 H Arterial Blood Ionized Calcium 4.5 L Coronavirus (PCR) SARS-CoV-2 IgG Ab 07/29/20 07/30/20 07/30/20 23:28 04:47 05:28 WBC RBC Hgb Hct MCH MCHC Plt Count Lymph % (Auto) Lymph # (Auto) Seg Neutrophils % Seg Neuts % (Manual) Lymphocytes % (Manual) Eosinophils % (Manual) Seg Neutrophils # Seg Neutrophils # Man Lymphocytes # (Manual) Eosinophils # (Manual) D-Dimer ABG pH POC ABG pCO2 55.1 H POC ABG pO2 43.6 L ABG pO2 ABG HCO3 ABG O2 Saturation ABG Base Excess ABG Hemoglobin 11.9 L ABG Oxyhemoglobin ABG Sodium ABG Potassium ABG Chloride 96.0 L ABG Glucose 150 H Oxyhemoglobin Sodium Chloride Carbon Dioxide BUN Creatinine Glucose POC Glucose 121 H 143 H Lactic Acid Calcium Ferritin AST ALT Lactate Dehydrogenase C-Reactive Protein Total Protein Albumin Triglycerides Arterial Blood Glucose 150 H Arterial Blood Ionized Calcium Coronavirus (PCR) SARS-CoV-2 IgG Ab 07/30/20 07/30/20 07/30/20 08:18 12:00 14:17 WBC RBC Hgb Hct MCH MCHC Plt Count Lymph % (Auto) Lymph # (Auto) Seg Neutrophils % Seg Neuts % (Manual) Lymphocytes % (Manual) Eosinophils % (Manual) Seg Neutrophils # Seg Neutrophils # Man Lymphocytes # (Manual) Eosinophils # (Manual) D-Dimer ABG pH POC ABG pCO2 63.3 H 64.6 H POC ABG pO2 47.9 L 41.0 L ABG pO2 ABG HCO3 ABG O2 Saturation ABG Base Excess ABG Hemoglobin 10.5 L 10.2 L ABG Oxyhemoglobin 84.9 L ABG Sodium ABG Potassium ABG Chloride 97.0 L ABG Glucose 170 H 175 H Oxyhemoglobin Sodium Chloride Carbon Dioxide BUN Creatinine Glucose POC Glucose 161 H Lactic Acid Calcium Ferritin AST ALT Lactate Dehydrogenase C-Reactive Protein Total Protein Albumin Triglycerides Arterial Blood Glucose 170 H 175 H Arterial Blood Ionized Calcium 4.4 L 4.4 L Coronavirus (PCR) SARS-CoV-2 IgG Ab 07/30/20 07/30/20 07/30/20 15:15 15:15 15:15 WBC RBC 2.80 L Hgb 9.1 L Hct 26.0 L D MCH MCHC 35 H Plt Count 101 L Lymph % (Auto) Lymph # (Auto) Seg Neutrophils % Seg Neuts % (Manual) 90.0 H Lymphocytes % (Manual) 7.0 L Eosinophils % (Manual) Seg Neutrophils # Seg Neutrophils # Man Lymphocytes # (Manual) 0.4 L Eosinophils # (Manual) D-Dimer ABG pH POC ABG pCO2 POC ABG pO2 ABG pO2 ABG HCO3 ABG O2 Saturation ABG Base Excess ABG Hemoglobin ABG Oxyhemoglobin ABG Sodium ABG Potassium ABG Chloride ABG Glucose Oxyhemoglobin Sodium Chloride 97.1 L Carbon Dioxide 32 H D BUN 39 H Creatinine 1.3 H D Glucose 167 H POC Glucose Lactic Acid Calcium 8.0 L Ferritin AST ALT Lactate Dehydrogenase C-Reactive Protein Total Protein Albumin Triglycerides 837 H Arterial Blood Glucose Arterial Blood Ionized Calcium Coronavirus (PCR) SARS-CoV-2 IgG Ab 07/30/20 07/30/20 07/30/20 15:15 17:03 17:43 WBC RBC Hgb Hct MCH MCHC Plt Count Lymph % (Auto) Lymph # (Auto) Seg Neutrophils % Seg Neuts % (Manual) Lymphocytes % (Manual) Eosinophils % (Manual) Seg Neutrophils # Seg Neutrophils # Man Lymphocytes # (Manual) Eosinophils # (Manual) D-Dimer ABG pH POC ABG pCO2 POC ABG pO2 ABG pO2 ABG HCO3 ABG O2 Saturation ABG Base Excess ABG Hemoglobin ABG Oxyhemoglobin ABG Sodium ABG Potassium ABG Chloride ABG Glucose Oxyhemoglobin Sodium Chloride Carbon Dioxide BUN Creatinine Glucose POC Glucose 171 H Lactic Acid 2.20 H* 3.60 H* Calcium Ferritin AST ALT Lactate Dehydrogenase C-Reactive Protein Total Protein Albumin Triglycerides Arterial Blood Glucose Arterial Blood Ionized Calcium Coronavirus (PCR) SARS-CoV-2 IgG Ab 07/30/20 07/30/20 07/31/20 20:13 23:37 04:15 WBC RBC Hgb Hct MCH MCHC Plt Count Lymph % (Auto) Lymph # (Auto) Seg Neutrophils % Seg Neuts % (Manual) Lymphocytes % (Manual) Eosinophils % (Manual) Seg Neutrophils # Seg Neutrophils # Man Lymphocytes # (Manual) Eosinophils # (Manual) D-Dimer ABG pH 7.544 H 7.489 H POC ABG pCO2 POC ABG pO2 44.4 L 50.0 L ABG pO2 ABG HCO3 ABG O2 Saturation ABG Base Excess ABG Hemoglobin 10.4 L ABG Oxyhemoglobin ABG Sodium 135.3 L ABG Potassium ABG Chloride ABG Glucose 201 H 199 H Oxyhemoglobin Sodium Chloride Carbon Dioxide BUN Creatinine Glucose POC Glucose 160 H Lactic Acid Calcium Ferritin AST ALT Lactate Dehydrogenase C-Reactive Protein Total Protein Albumin Triglycerides Arterial Blood Glucose 201 H 199 H Arterial Blood Ionized Calcium 4.2 L 4.4 L Coronavirus (PCR) SARS-CoV-2 IgG Ab 07/31/20 07/31/20 07/31/20 05:16 05:16 05:28 WBC RBC 3.03 L Hgb 9.2 L Hct 27.6 L MCH MCHC Plt Count 118 L Lymph % (Auto) 6.3 L Lymph # (Auto) 0.5 L Seg Neutrophils % Seg Neuts % (Manual) Lymphocytes % (Manual) Eosinophils % (Manual) Seg Neutrophils # Seg Neutrophils # Man Lymphocytes # (Manual) Eosinophils # (Manual) D-Dimer ABG pH POC ABG pCO2 POC ABG pO2 ABG pO2 ABG HCO3 ABG O2 Saturation ABG Base Excess ABG Hemoglobin ABG Oxyhemoglobin ABG Sodium ABG Potassium ABG Chloride ABG Glucose Oxyhemoglobin Sodium Chloride Carbon Dioxide BUN 57 H Creatinine 1.7 H Glucose 208 H POC Glucose 182 H Lactic Acid Calcium 8.3 L Ferritin AST 613 H ALT 760 H Lactate Dehydrogenase C-Reactive Protein Total Protein 5.6 L Albumin 2.2 L Triglycerides Arterial Blood Glucose Arterial Blood Ionized Calcium Coronavirus (PCR) SARS-CoV-2 IgG Ab 07/31/20 11:02 WBC RBC Hgb Hct MCH MCHC Plt Count Lymph % (Auto) Lymph # (Auto) Seg Neutrophils % Seg Neuts % (Manual) Lymphocytes % (Manual) Eosinophils % (Manual) Seg Neutrophils # Seg Neutrophils # Man Lymphocytes # (Manual) Eosinophils # (Manual) D-Dimer ABG pH POC ABG pCO2 POC ABG pO2 ABG pO2 ABG HCO3 ABG O2 Saturation ABG Base Excess ABG Hemoglobin ABG Oxyhemoglobin ABG Sodium ABG Potassium ABG Chloride ABG Glucose Oxyhemoglobin Sodium Chloride Carbon Dioxide BUN Creatinine Glucose POC Glucose 200 H Lactic Acid Calcium Ferritin AST ALT Lactate Dehydrogenase C-Reactive Protein Total Protein Albumin Triglycerides Arterial Blood Glucose Arterial Blood Ionized Calcium Coronavirus (PCR) SARS-CoV-2 IgG Ab Allied health notes reviewed: nursing
--- NOTE | 2020-07-31 15:09 | Progress Note ---
Assessment and Plan Cultures: Blood culture 07/19/2020 no growth so far 12 1 tracheal aspirate cultures with staph aureus and a gram-negative leland pending ID A/P:50-year-old female with CHF, asthma, hypertension, lupus initially admitted with severe COVID-19, now febrile with possible VAP #Acute sepsis: Present with fevers and tachycardia. Possible source VAP #Acute hypoxic respiratory failure #Possible VAP: Chest x-ray not especially concerning, however worsening pulmonary status with associated fevers. Procalcitonin massively elevated even in the setting of acute renal injury. #Lupus: On Plaquenil. #CHF #Asthma #MAHOGANY: Possible in setting of vancomycin, may need to change therapy if worse tomorrow. Recs: -Obtain MRSA swab -Continue empiric cefepime and vancomycin goal trough 10-20 for now. -Change therapy from vancomycin if renal disease worsens tomorrow. -Follow-up culture finalization. Thank you for the consult, we will continue to follow. Robert Zeng MD [facility], [place], [facility] O: [phone] F: [phone] Subjective Date of service: 07/31/20 Principal diagnosis: Ac hypoxemic resp failure; PNA; COVID-19 infxn; SLE; Asthma exacerbation Interval history: Febrile yesterday to 101 at noon, afebrile since then. Normal white count. Sputum cultures with staph aureus and a gram-negative leland, minimal inflammation seen on Gram stain. Imaging personally viewed: Chest x-ray: Fairly stable., Bilateral infiltrates. Objective - Exam Narrative Exam: Physical exam deferred due to PPE conservation strategy. Please refer to primary team's note. - Constitutional Vitals: Vital Signs Temp Pulse Resp BP Pulse Ox 97.6 F 77 36 H 105/55 89 07/31/20 08:00 07/31/20 12:28 07/31/20 11:46 07/31/20 12:28 07/31/20 12:28 Temperature -Last 24 Hours Temperature 97.6 F Temperature 98.9 F Temperature 98.9 F Temperature 100.1 F - Labs CBC & Chem 7: 07/31/20 05:16 07/31/20 05:16 Labs: Abnormal lab results 07/30/20 07/30/20 07/30/20 Range/Units 14:17 15:15 15:15 RBC 2.80 L (3.65-5.03) M/mm3 Hgb 9.1 L (10.1-14.3) gm/dl Hct 26.0 L D (30.3-42.9) % MCHC 35 H (30-34) % Plt Count 101 L (140-440) K/mm3 Lymph % (Auto) (13.4-35.0) % Lymph # (Auto) (1.2-5.4) K/mm3 Seg Neuts % (Manual) 90.0 H (40.0-70.0) % Lymphocytes % (Manual) 7.0 L (13.4-35.0) % Lymphocytes # (Manual) 0.4 L (1.2-5.4) K/mm3 ABG pH (7.320-7.450) POC ABG pCO2 64.6 H (32.0-48.0) mmHg POC ABG pO2 41.0 L (83-108) mmHg ABG Hemoglobin 10.2 L (12.0-17.5) ABG Sodium (136.0-145.0) mmol/L ABG Glucose 175 H (65-95) mg/dL Chloride 97.1 L (98-107) mmol/L Carbon Dioxide 32 H D (22-30) mmol/L BUN 39 H (7-17) mg/dL Creatinine 1.3 H D (0.6-1.2) mg/dL Glucose 167 H (65-100) mg/dL POC Glucose (70-105) mg/dL Lactic Acid (0.7-2.0) mmol/L Calcium 8.0 L (8.4-10.2) mg/dL AST (5-40) units/L ALT (7-56) units/L Total Protein (6.3-8.2) g/dL Albumin (3.9-5) g/dL Triglycerides (2-149) mg/dL Arterial Blood Glucose 175 H (65-95) mg/dL Arterial Blood Ionized Calcium 4.4 L (4.6-5.3) mg/dL 07/30/20 07/30/20 07/30/20 Range/Units 15:15 15:15 17:03 RBC (3.65-5.03) M/mm3 Hgb (10.1-14.3) gm/dl Hct (30.3-42.9) % MCHC (30-34) % Plt Count (140-440) K/mm3 Lymph % (Auto) (13.4-35.0) % Lymph # (Auto) (1.2-5.4) K/mm3 Seg Neuts % (Manual) (40.0-70.0) % Lymphocytes % (Manual) (13.4-35.0) % Lymphocytes # (Manual) (1.2-5.4) K/mm3 ABG pH (7.320-7.450) POC ABG pCO2 (32.0-48.0) mmHg POC ABG pO2 (83-108) mmHg ABG Hemoglobin (12.0-17.5) ABG Sodium (136.0-145.0) mmol/L ABG Glucose (65-95) mg/dL Chloride (98-107) mmol/L Carbon Dioxide (22-30) mmol/L BUN (7-17) mg/dL Creatinine (0.6-1.2) mg/dL Glucose (65-100) mg/dL POC Glucose 171 H (70-105) mg/dL Lactic Acid 2.20 H* (0.7-2.0) mmol/L Calcium (8.4-10.2) mg/dL AST (5-40) units/L ALT (7-56) units/L Total Protein (6.3-8.2) g/dL Albumin (3.9-5) g/dL Triglycerides 837 H (2-149) mg/dL Arterial Blood Glucose (65-95) mg/dL Arterial Blood Ionized Calcium (4.6-5.3) mg/dL 07/30/20 07/30/20 07/30/20 Range/Units 17:43 20:13 23:37 RBC (3.65-5.03) M/mm3 Hgb (10.1-14.3) gm/dl Hct (30.3-42.9) % MCHC (30-34) % Plt Count (140-440) K/mm3 Lymph % (Auto) (13.4-35.0) % Lymph # (Auto) (1.2-5.4) K/mm3 Seg Neuts % (Manual) (40.0-70.0) % Lymphocytes % (Manual) (13.4-35.0) % Lymphocytes # (Manual) (1.2-5.4) K/mm3 ABG pH 7.544 H (7.320-7.450) POC ABG pCO2 (32.0-48.0) mmHg POC ABG pO2 44.4 L (83-108) mmHg ABG Hemoglobin 10.4 L (12.0-17.5) ABG Sodium (136.0-145.0) mmol/L ABG Glucose 201 H (65-95) mg/dL Chloride (98-107) mmol/L Carbon Dioxide (22-30) mmol/L BUN (7-17) mg/dL Creatinine (0.6-1.2) mg/dL Glucose (65-100) mg/dL POC Glucose 160 H (70-105) mg/dL Lactic Acid 3.60 H* (0.7-2.0) mmol/L Calcium (8.4-10.2) mg/dL AST (5-40) units/L ALT (7-56) units/L Total Protein (6.3-8.2) g/dL Albumin (3.9-5) g/dL Triglycerides (2-149) mg/dL Arterial Blood Glucose 201 H (65-95) mg/dL Arterial Blood Ionized Calcium 4.2 L (4.6-5.3) mg/dL 07/31/20 07/31/20 07/31/20 Range/Units 04:15 05:16 05:16 RBC 3.03 L (3.65-5.03) M/mm3 Hgb 9.2 L (10.1-14.3) gm/dl Hct 27.6 L (30.3-42.9) % MCHC (30-34) % Plt Count 118 L (140-440) K/mm3 Lymph % (Auto) 6.3 L (13.4-35.0) % Lymph # (Auto) 0.5 L (1.2-5.4) K/mm3 Seg Neuts % (Manual) (40.0-70.0) % Lymphocytes % (Manual) (13.4-35.0) % Lymphocytes # (Manual) (1.2-5.4) K/mm3 ABG pH 7.489 H (7.320-7.450) POC ABG pCO2 (32.0-48.0) mmHg POC ABG pO2 50.0 L (83-108) mmHg ABG Hemoglobin (12.0-17.5) ABG Sodium 135.3 L (136.0-145.0) mmol/L ABG Glucose 199 H (65-95) mg/dL Chloride (98-107) mmol/L Carbon Dioxide (22-30) mmol/L BUN 57 H (7-17) mg/dL Creatinine 1.7 H (0.6-1.2) mg/dL Glucose 208 H (65-100) mg/dL POC Glucose (70-105) mg/dL Lactic Acid (0.7-2.0) mmol/L Calcium 8.3 L (8.4-10.2) mg/dL AST 613 H (5-40) units/L ALT 760 H (7-56) units/L Total Protein 5.6 L (6.3-8.2) g/dL Albumin 2.2 L (3.9-5) g/dL Triglycerides (2-149) mg/dL Arterial Blood Glucose 199 H (65-95) mg/dL Arterial Blood Ionized Calcium 4.4 L (4.6-5.3) mg/dL 07/31/20 07/31/20 Range/Units 05:28 11:02 RBC (3.65-5.03) M/mm3 Hgb (10.1-14.3) gm/dl Hct (30.3-42.9) % MCHC (30-34) % Plt Count (140-440) K/mm3 Lymph % (Auto) (13.4-35.0) % Lymph # (Auto) (1.2-5.4) K/mm3 Seg Neuts % (Manual) (40.0-70.0) % Lymphocytes % (Manual) (13.4-35.0) % Lymphocytes # (Manual) (1.2-5.4) K/mm3 ABG pH (7.320-7.450) POC ABG pCO2 (32.0-48.0) mmHg POC ABG pO2 (83-108) mmHg ABG Hemoglobin (12.0-17.5) ABG Sodium (136.0-145.0) mmol/L ABG Glucose (65-95) mg/dL Chloride (98-107) mmol/L Carbon Dioxide (22-30) mmol/L BUN (7-17) mg/dL Creatinine (0.6-1.2) mg/dL Glucose (65-100) mg/dL POC Glucose 182 H 200 H (70-105) mg/dL Lactic Acid (0.7-2.0) mmol/L Calcium (8.4-10.2) mg/dL AST (5-40) units/L ALT (7-56) units/L Total Protein (6.3-8.2) g/dL Albumin (3.9-5) g/dL Triglycerides (2-149) mg/dL Arterial Blood Glucose (65-95) mg/dL Arterial Blood Ionized Calcium (4.6-5.3) mg/dL
--- NOTE | 2020-07-31 15:32 | XRay Report ---
CHEST 1 VIEW 07/31/2020 3:11 PM INDICATION / CLINICAL INFORMATION: Pneumothorax. COMPARISON: Chest one view from 07/30/2020 FINDINGS: SUPPORT DEVICES: Unchanged. HEART / MEDIASTINUM: Stable. LUNGS / PLEURA: Previously seen bilateral airspace opacities are more dense, particularly along the l jailyn bases. No significant pleural effusion. The previously seen right apical pneumothorax has decreas ed in size. ADDITIONAL FINDINGS: Interval improvement of the previously seen subcutaneous emphysema. IMPRESSION: 1. Increased consolidation of the lungs. 2. Additional findings as above. Signer Name: Rolo Balderas MD Signed: 07/31/2020 3:27 PM Workstation Name: [id number]
[2020-07-31] MEDS: MIDAZOLAM 100 MG in SODIUM CHLORIDE 0.9% 80 ML IV SCH (16:11)
[2020-07-31 16:53] LABS: Creatinine,Urine 89.2 mg/dL (0.1-20.0)
[2020-07-31] MEDS: INSULIN GLARGINE 100 UNITS/ML SUB-Q SCH (17:47)
[2020-07-31] MEDS ORDERED: ATROPINE 0.1% (1 MG/10 ML) CARDIAC SYRINGE ONE (20:30)
[2020-07-31] MEDS ORDERED: DOPamine/D5W 800 MG/250 ML 800 MG/250 ML BAG IV SCH (22:00)
[2020-08-01] MEDS: PHENYLEPHRINE 100 MG in SODIUM CHLORIDE 0.9% 90 ML IV SCH (00:45)
[2020-08-01] MEDS: INSULIN REGULAR, HUMAN 100 UNIT/ML 3ML VIAL SUB-Q SCH ×4 (00:57→17:46)
[2020-08-01] MEDS: ARFORMOTEROL 15 MCG/2 ML NEBU IH SCH ×3 (01:51→20:17)
[2020-08-01] MEDS: BUDESONIDE 0.5 MG/2 ML NEBU IH SCH ×3 (01:51→20:17)
[2020-08-01] MEDS: fentaNYL DRIP Premix 2,000 MCG/100 ML BAG IV SCH ×5 (01:52→20:58)
[2020-08-01] MEDS: IPRATROPIUM/ALBUTEROL SULFATE 3 ML AMPUL.NEB IH SCH ×4 (01:52→20:17)
[2020-08-01] MEDS: MIDAZOLAM 100 MG in SODIUM CHLORIDE 0.9% 80 ML IV SCH ×2 (03:36→15:25)
[2020-08-01] MEDS: chlordiazePOXIDE 25 MG CAP PO SCH ×3 (04:21→21:07)
[2020-08-01] MEDS: methylPREDNISolone Sod Succinate 40 MG/1 ML INJ IV SCH ×3 (05:03→21:06)
[2020-08-01] MEDS: CEFEPIME/NS 2 GM/100 ML 2 GM/100 ML BAG IV SCH (05:03)
[2020-08-01] MEDS: GABAPENTIN 300 MG CAP PO SCH ×3 (05:03→21:08)
[2020-08-01 06:51] LABS: Hematocrit 20.9 % (30.3-42.9); Hemoglobin 7.6 gm/dl (10.1-14.3); Mean Corpuscular HGB Conc 37 % (30-34); Mean Corpuscular Volume 92 fl (79-97); Platelet Count 85 K/mm3 (140-440); Red Blood Count 2.27 M/mm3 (3.65-5.03); Red Cell Distribution Width 15.2 % (13.2-15.2)
[2020-08-01 07:01] LABS: Eosinophils % (Auto) 0.3 % (0.0-4.3); Monocytes # (Auto) 0.1 K/mm3 (0.0-0.8); Monocytes % (Auto) 2.3 % (0.0-7.3)
[2020-08-01 07:20] LABS: Albumin 0.6 g/dL (3.9-5); BUN/Creatinine Ratio 52; Blood Urea Nitrogen 47 mg/dL (7-17); Hemolysis Index 28
[2020-08-01 07:33] LABS: Alanine Aminotransferase 408 units/L (7-56)
[2020-08-01] MEDS ORDERED: VANCOMYCIN PHARMACY TO DOSE IV SCH (08:00)
[2020-08-01 08:09] LABS: Calcium 6.6 mg/dL (8.4-10.2)
[2020-08-01] MEDS ORDERED: POTASSIUM CHLORIDE 20 MEQ PACKET FEEDTUBE SCH (09:00)
[2020-08-01] MEDS: VASOPRESSIN 20 UNIT in SODIUM CHLORIDE 0.9% 100 ML IV SCH ×2 (09:49→20:51)
[2020-08-01] MEDS: ALTEPLASE 2 MG INJ IV PRN (09:51)
[2020-08-01] MEDS: HYDROXYCHLOROQUINE 200 MG TAB PO SCH (09:57)
[2020-08-01] MEDS: ASPIRIN 81 MG TAB CHEW PO SCH (09:57)
[2020-08-01] MEDS: QUEtiapine 200 MG TAB PO SCH ×2 (09:57→21:08)
[2020-08-01] MEDS: ZINC SULFATE 220 MG CAP PO SCH ×2 (09:57→21:09)
[2020-08-01] MEDS: LANSOPRAZOLE 30 MG SOLUTAB FEEDTUBE SCH (09:57)
[2020-08-01] MEDS: QUEtiapine 100 MG TAB PO SCH ×2 (09:57→21:09)
[2020-08-01] MEDS: VENLAFAXINE 37.5 MG TAB PO SCH (09:57)
[2020-08-01] MEDS: ASCORBIC ACID 500 MG TAB PO SCH ×2 (09:58→21:09)
[2020-08-01] MEDS: ENOXAPARIN 30 MG/0.3 ML INJ SUB-Q SCH ×2 (09:58→21:07)
[2020-08-01] MEDS: DOCUSATE SODIUM 100 MG/10 ML ORAL LIQD PO SCH ×2 (09:58→21:07)
[2020-08-01] MEDS: POLYETHYLENE GLYCOL 3350 17 GM POWDER PO SCH (09:59)
[2020-08-01 10:34] LABS: BUN/Creatinine Ratio 57; Blood Urea Nitrogen 57 mg/dL (7-17); Calcium 8.2 mg/dL (8.4-10.2); Hemolysis Index 8
[2020-08-01] MEDS: POTASSIUM CHLORIDE 20 MEQ 20 MEQ/100 ML BAG IV SCH ×2 (10:50→11:42)
--- NOTE | 2020-08-01 11:58 | Progress Note ---
Assessment and Plan Cultures: Blood culture 07/19/2020 no growth so far 12 1 tracheal aspirate cultures with staph aureus and E. coli A/P:50-year-old female with CHF, asthma, hypertension, lupus initially admitted with severe COVID-19, now febrile with possible VAP #Acute sepsis: Present with fevers and tachycardia. Possible source VAP #Acute hypoxic respiratory failure #Possible VAP: Chest x-ray not especially concerning, however worsening pulmonary status with associated fevers. Procalcitonin massively elevated even in the setting of acute renal injury. #Lupus: On Plaquenil. #CHF #Asthma #MAHOGANY: Possible in setting of vancomycin, improving Recs: -Obtain MRSA swab -Continue vancomycin goal trough 10-20 for now. -Stop cefepime -Start ceftriaxone 2 g every 24 hours -Change therapy from vancomycin if renal disease worsens tomorrow. -Follow-up culture finalization. Thank you for the consult, we will continue to follow. Robert Zeng MD [facility] ([facility] O: [phone] F: [phone] Subjective Date of service: 08/01/20 Principal diagnosis: Ac hypoxemic resp failure; PNA; COVID-19 infxn; SLE; Asthma exacerbation Interval history: Afebrile, normal white count. Sputum cultures with MRSA and E. coli Imaging personally viewed: Chest x-ray: Increasing consolidation. Objective - Exam Narrative Exam: Physical exam deferred due to PPE conservation strategy. Please refer to primary team's note. - Constitutional Vitals: Vital Signs Temp Pulse Resp BP Pulse Ox 97.9 F 114 H 30 H 87/54 89 08/01/20 08:00 08/01/20 11:16 08/01/20 11:16 08/01/20 11:16 08/01/20 11:16 Temperature -Last 24 Hours Temperature 97.9 F Temperature 99.5 F Temperature 98.0 F Temperature 97.2 F Temperature 99.7 F Temperature 97.2 F - Labs CBC & Chem 7: 08/01/20 05:30 08/01/20 09:33 Labs: Abnormal lab results 07/31/20 07/31/20 07/31/20 Range/Units 14:14 14:14 14:14 RBC (3.65-5.03) M/mm3 Hgb (10.1-14.3) gm/dl Hct (30.3-42.9) % MCH (28-32) pg MCHC (30-34) % Plt Count (140-440) K/mm3 D-Dimer 2522.40 H (0-234) ng/mlDDU ABG pH (7.320-7.450) POC ABG pO2 (83-108) mmHg ABG Hemoglobin (12.0-17.5) ABG Oxyhemoglobin (94-98) ABG Sodium (136.0-145.0) mmol/L ABG Potassium (3.40-4.50) mmol/L ABG Glucose (65-95) mg/dL Carboxyhemoglobin (0.5-1.5) Sodium (137-145) mmol/L Potassium (3.6-5.0) mmol/L BUN (7-17) mg/dL Glucose (65-100) mg/dL POC Glucose (70-105) mg/dL Calcium (8.4-10.2) mg/dL Ferritin 964.8 H (10.0-200.0) ng/mL AST (5-40) units/L ALT (7-56) units/L Lactate Dehydrogenase 585 H (91-180) units/L C-Reactive Protein 49.00 H (0.00-1.30) mg/dL Total Protein (6.3-8.2) g/dL Albumin (3.9-5) g/dL Triglycerides (2-149) mg/dL Arterial Blood Glucose (65-95) mg/dL Arterial Blood Ionized Calcium (4.6-5.3) mg/dL Urine Creatinine (0.1-20.0) mg/dL Urine Total Protein (5-11.8) mg/dL Vancomycin Trough (5.0-20.0) ug/mL 07/31/20 07/31/20 07/31/20 Range/Units 14:14 16:00 17:22 RBC (3.65-5.03) M/mm3 Hgb (10.1-14.3) gm/dl Hct (30.3-42.9) % MCH (28-32) pg MCHC (30-34) % Plt Count (140-440) K/mm3 D-Dimer (0-234) ng/mlDDU ABG pH (7.320-7.450) POC ABG pO2 (83-108) mmHg ABG Hemoglobin (12.0-17.5) ABG Oxyhemoglobin (94-98) ABG Sodium (136.0-145.0) mmol/L ABG Potassium (3.40-4.50) mmol/L ABG Glucose (65-95) mg/dL Carboxyhemoglobin (0.5-1.5) Sodium (137-145) mmol/L Potassium (3.6-5.0) mmol/L BUN (7-17) mg/dL Glucose (65-100) mg/dL POC Glucose 229 H (70-105) mg/dL Calcium (8.4-10.2) mg/dL Ferritin (10.0-200.0) ng/mL AST (5-40) units/L ALT (7-56) units/L Lactate Dehydrogenase (91-180) units/L C-Reactive Protein (0.00-1.30) mg/dL Total Protein (6.3-8.2) g/dL Albumin (3.9-5) g/dL Triglycerides (2-149) mg/dL Arterial Blood Glucose (65-95) mg/dL Arterial Blood Ionized Calcium (4.6-5.3) mg/dL Urine Creatinine 89.2 H (0.1-20.0) mg/dL Urine Total Protein 108 H (5-11.8) mg/dL Vancomycin Trough 28.2 H (5.0-20.0) ug/mL 07/31/20 08/01/20 08/01/20 Range/Units 21:26 00:07 04:46 RBC (3.65-5.03) M/mm3 Hgb (10.1-14.3) gm/dl Hct (30.3-42.9) % MCH (28-32) pg MCHC (30-34) % Plt Count (140-440) K/mm3 D-Dimer (0-234) ng/mlDDU ABG pH 7.462 H (7.320-7.450) POC ABG pO2 156.0 H 70.2 L (83-108) mmHg ABG Hemoglobin 9.6 L 8.7 L (12.0-17.5) ABG Oxyhemoglobin 98.4 H (94-98) ABG Sodium 135.9 L 135.7 L (136.0-145.0) mmol/L ABG Potassium 3.3 L (3.40-4.50) mmol/L ABG Glucose 290 H 275 H (65-95) mg/dL Carboxyhemoglobin 0.4 L (0.5-1.5) Sodium (137-145) mmol/L Potassium (3.6-5.0) mmol/L BUN (7-17) mg/dL Glucose (65-100) mg/dL POC Glucose 255 H (70-105) mg/dL Calcium (8.4-10.2) mg/dL Ferritin (10.0-200.0) ng/mL AST (5-40) units/L ALT (7-56) units/L Lactate Dehydrogenase (91-180) units/L C-Reactive Protein (0.00-1.30) mg/dL Total Protein (6.3-8.2) g/dL Albumin (3.9-5) g/dL Triglycerides (2-149) mg/dL Arterial Blood Glucose 290 H 275 H (65-95) mg/dL Arterial Blood Ionized Calcium 4.5 L 4.5 L (4.6-5.3) mg/dL Urine Creatinine (0.1-20.0) mg/dL Urine Total Protein (5-11.8) mg/dL Vancomycin Trough (5.0-20.0) ug/mL 08/01/20 08/01/20 08/01/20 Range/Units 05:30 05:30 05:34 RBC 2.27 L (3.65-5.03) M/mm3 Hgb 7.6 L (10.1-14.3) gm/dl Hct 20.9 L D (30.3-42.9) % MCH 34 H (28-32) pg MCHC 37 H (30-34) % Plt Count 85 L (140-440) K/mm3 D-Dimer (0-234) ng/mlDDU ABG pH (7.320-7.450) POC ABG pO2 (83-108) mmHg ABG Hemoglobin (12.0-17.5) ABG Oxyhemoglobin (94-98) ABG Sodium (136.0-145.0) mmol/L ABG Potassium (3.40-4.50) mmol/L ABG Glucose (65-95) mg/dL Carboxyhemoglobin (0.5-1.5) Sodium 132 L D (137-145) mmol/L Potassium 2.8 L* D (3.6-5.0) mmol/L BUN 47 H (7-17) mg/dL Glucose 217 H (65-100) mg/dL POC Glucose 246 H (70-105) mg/dL Calcium 6.6 L D (8.4-10.2) mg/dL Ferritin (10.0-200.0) ng/mL AST 117 H (5-40) units/L ALT 408 H (7-56) units/L Lactate Dehydrogenase (91-180) units/L C-Reactive Protein (0.00-1.30) mg/dL Total Protein 4.3 L D (6.3-8.2) g/dL Albumin 0.6 L (3.9-5) g/dL Triglycerides 2335 H (2-149) mg/dL Arterial Blood Glucose (65-95) mg/dL Arterial Blood Ionized Calcium (4.6-5.3) mg/dL Urine Creatinine (0.1-20.0) mg/dL Urine Total Protein (5-11.8) mg/dL Vancomycin Trough (5.0-20.0) ug/mL 08/01/20 08/01/20 Range/Units 09:33 11:50 RBC (3.65-5.03) M/mm3 Hgb (10.1-14.3) gm/dl Hct (30.3-42.9) % MCH (28-32) pg MCHC (30-34) % Plt Count (140-440) K/mm3 D-Dimer (0-234) ng/mlDDU ABG pH (7.320-7.450) POC ABG pO2 (83-108) mmHg ABG Hemoglobin (12.0-17.5) ABG Oxyhemoglobin (94-98) ABG Sodium (136.0-145.0) mmol/L ABG Potassium (3.40-4.50) mmol/L ABG Glucose (65-95) mg/dL Carboxyhemoglobin (0.5-1.5) Sodium (137-145) mmol/L Potassium (3.6-5.0) mmol/L BUN 57 H (7-17) mg/dL Glucose 250 H (65-100) mg/dL POC Glucose 239 H (70-105) mg/dL Calcium 8.2 L D (8.4-10.2) mg/dL Ferritin (10.0-200.0) ng/mL AST (5-40) units/L ALT (7-56) units/L Lactate Dehydrogenase (91-180) units/L C-Reactive Protein (0.00-1.30) mg/dL Total Protein (6.3-8.2) g/dL Albumin (3.9-5) g/dL Triglycerides 759 H (2-149) mg/dL Arterial Blood Glucose (65-95) mg/dL Arterial Blood Ionized Calcium (4.6-5.3) mg/dL Urine Creatinine (0.1-20.0) mg/dL Urine Total Protein (5-11.8) mg/dL Vancomycin Trough (5.0-20.0) ug/mL
[2020-08-01 12:13] LABS: Band Neutrophils # (Manual) 0.3 K/mm3; Eosinophils % (Manual) 0 % (0.0-4.3); Total Cells Counted 100
[2020-08-01 12:14] LABS: Anisocytosis 1+; Basophils % (Manual) 0 % (0.0-1.8); Platelet Estimate Consistent w Auto
--- NOTE | 2020-08-01 12:46 | Progress Note ---
Assessment and Plan - Patient Problems (1) Acute tubular necrosis Current Visit: Yes Status: Acute Plan to address problem: MAHOGANY most likely secondary to acute tubular necrosis in the setting of pneumonia/sepsis and hypotension. BP and renal function improved with IVF resuscitation, pt remains non-oliguric. cont supportive care for MAHOGANY/ATN maintain MAP > 65mmHg with IV NS/vasopressor support prn, avoid nephrotoxins, NSADIs, IV contrast. Will montor lytes/renal parameters closely and make further recommendations. (2) COVID-19 Current Visit: Yes Status: Acute Plan to address problem: On IV steroid, s/p Remdesivir for 5 days and convalescent plasma transfusion. follow Ferritin, LDH, d-dimer level, follow ID recommendations (3) Acute respiratory failure Current Visit: No Status: Acute Qualifiers: Respiratory failure complication: unspecified whether with hypoxia or hypercapnia Qualified Code(s): J96.00 - Acute respiratory failure, unspecified whether with hypoxia or hypercapnia Plan to address problem: on ventilator support, management as per ICU team (4) Anemia in chronic illness Current Visit: Yes Status: Acute Plan to address problem: monitor serial Hb, PRBC transfusion prn for Hb < 7 (5) SLE (systemic lupus erythematosus related syndrome) Current Visit: No Status: Chronic Plan to address problem: on plaquenil Subjective Date of service: 08/01/20 Principal diagnosis: Ac hypoxemic resp failure; PNA; COVID-19 infxn; SLE; Asthma exacerbation Interval history: Pt remains intubated, physical exam deferred due to PPE perservation and to minimize risk of transmission Objective - Exam Narrative Exam: physical exam deferred due to PPE perservation and to minimize risk of transmission - Vital Signs Vital signs: Vital Signs - 12hr 08/01/20 08/01/20 08/01/20 01:00 01:16 01:30 Temperature Pulse Rate 97 H 88 90 Pulse Rate [ Apical] Pulse Rate [ Bilateral Throughout] Pulse Rate [ From Monitor] Respiratory 50 H 50 H 49 H Rate Respiratory Rate [Bilateral Throughout] Respiratory Rate [Chest] Blood Pressure 139/93 123/91 124/90 O2 Sat by Pulse 96 95 97 Oximetry 08/01/20 08/01/20 08/01/20 01:46 02:00 02:16 Temperature Pulse Rate 98 H 101 H 100 H Pulse Rate [ Apical] Pulse Rate [ Bilateral Throughout] Pulse Rate [ From Monitor] Respiratory 50 H 50 H 50 H Rate Respiratory Rate [Bilateral Throughout] Respiratory Rate [Chest] Blood Pressure 130/89 132/92 138/82 O2 Sat by Pulse 97 97 97 Oximetry 08/01/20 08/01/20 08/01/20 02:30 02:46 03:00 Temperature Pulse Rate 94 H 89 81 Pulse Rate [ Apical] Pulse Rate [ Bilateral Throughout] Pulse Rate [ From Monitor] Respiratory 50 H 50 H 49 H Rate Respiratory Rate [Bilateral Throughout] Respiratory Rate [Chest] Blood Pressure 138/82 131/83 137/94 O2 Sat by Pulse 97 97 97 Oximetry 08/01/20 08/01/20 08/01/20 03:16 03:30 03:46 Temperature Pulse Rate 94 H 89 95 H Pulse Rate [ Apical] Pulse Rate [ Bilateral Throughout] Pulse Rate [ From Monitor] Respiratory 41 H 50 H 50 H Rate Respiratory Rate [Bilateral Throughout] Respiratory Rate [Chest] Blood Pressure 138/81 132/81 117/81 O2 Sat by Pulse 96 96 95 Oximetry 08/01/20 08/01/20 08/01/20 04:00 04:16 04:25 Temperature Pulse Rate 84 100 H 93 H Pulse Rate [ Apical] Pulse Rate [ Bilateral Throughout] Pulse Rate [ From Monitor] Respiratory 50 H 50 H Rate Respiratory Rate [Bilateral Throughout] Respiratory Rate [Chest] Blood Pressure 116/78 120/66 116/78 O2 Sat by Pulse 93 95 95 Oximetry 08/01/20 08/01/20 08/01/20 04:30 04:46 05:00 Temperature Pulse Rate 90 84 98 H Pulse Rate [ Apical] Pulse Rate [ Bilateral Throughout] Pulse Rate [ From Monitor] Respiratory 49 H 49 H 50 H Rate Respiratory Rate [Bilateral Throughout] Respiratory Rate [Chest] Blood Pressure 120/71 113/76 113/71 O2 Sat by Pulse 95 93 94 Oximetry 08/01/20 08/01/20 08/01/20 05:16 05:30 05:46 Temperature Pulse Rate 101 H 94 H 82 Pulse Rate [ Apical] Pulse Rate [ Bilateral Throughout] Pulse Rate [ From Monitor] Respiratory 49 H 50 H 50 H Rate Respiratory Rate [Bilateral Throughout] Respiratory Rate [Chest] Blood Pressure 105/69 114/71 110/71 O2 Sat by Pulse 95 96 94 Oximetry 08/01/20 08/01/20 08/01/20 06:00 06:16 06:30 Temperature Pulse Rate 95 H 95 H 91 H Pulse Rate [ Apical] Pulse Rate [ Bilateral Throughout] Pulse Rate [ From Monitor] Respiratory 50 H 50 H 50 H Rate Respiratory Rate [Bilateral Throughout] Respiratory Rate [Chest] Blood Pressure 112/79 121/73 122/80 O2 Sat by Pulse 96 96 97 Oximetry 08/01/20 08/01/20 08/01/20 06:46 07:00 07:16 Temperature Pulse Rate 92 H 88 92 H Pulse Rate [ Apical] Pulse Rate [ Bilateral Throughout] Pulse Rate [ From Monitor] Respiratory 50 H 50 H 50 H Rate Respiratory Rate [Bilateral Throughout] Respiratory Rate [Chest] Blood Pressure 116/84 120/84 127/82 O2 Sat by Pulse 96 97 97 Oximetry 08/01/20 08/01/20 08/01/20 07:30 07:46 08:00 Temperature 97.9 F Pulse Rate 101 H 101 H 103 H Pulse Rate [ 88 Apical] Pulse Rate [ Bilateral Throughout] Pulse Rate [ 88 From Monitor] Respiratory 50 H 50 H 49 H Rate Respiratory Rate [Bilateral Throughout] Respiratory Rate [Chest] Blood Pressure 122/86 114/76 121/86 O2 Sat by Pulse 97 96 98 Oximetry 08/01/20 08/01/20 08/01/20 08:02 08:16 08:30 Temperature Pulse Rate 95 H 95 H 98 H Pulse Rate [ Apical] Pulse Rate [ Bilateral Throughout] Pulse Rate [ From Monitor] Respiratory 44 H 42 H Rate Respiratory Rate [Bilateral Throughout] Respiratory Rate [Chest] Blood Pressure 121/86 116/81 109/64 O2 Sat by Pulse 96 97 91 Oximetry 08/01/20 08/01/20 08/01/20 08:46 08:51 09:00 Temperature Pulse Rate 101 H 92 H Pulse Rate [ Apical] Pulse Rate [ 106 H Bilateral Throughout] Pulse Rate [ From Monitor] Respiratory 44 H 44 H Rate Respiratory 46 H Rate [Bilateral Throughout] Respiratory Rate [Chest] Blood Pressure 118/93 106/72 O2 Sat by Pulse 96 96 Oximetry 08/01/20 08/01/20 08/01/20 09:16 09:30 09:46 Temperature Pulse Rate 101 H 105 H 100 H Pulse Rate [ Apical] Pulse Rate [ Bilateral Throughout] Pulse Rate [ From Monitor] Respiratory 30 H 30 H 30 H Rate Respiratory Rate [Bilateral Throughout] Respiratory Rate [Chest] Blood Pressure 116/75 103/58 101/67 O2 Sat by Pulse 96 94 94 Oximetry 08/01/20 08/01/20 08/01/20 10:00 10:16 10:30 Temperature Pulse Rate 102 H 105 H 109 H Pulse Rate [ Apical] Pulse Rate [ Bilateral Throughout] Pulse Rate [ From Monitor] Respiratory 30 H 30 H 30 H Rate Respiratory Rate [Bilateral Throughout] Respiratory 30 H Rate [Chest] Blood Pressure 152/104 111/62 100/46 O2 Sat by Pulse 95 93 92 Oximetry 08/01/20 08/01/20 08/01/20 10:46 11:00 11:16 Temperature Pulse Rate 114 H 117 H 114 H Pulse Rate [ Apical] Pulse Rate [ Bilateral Throughout] Pulse Rate [ From Monitor] Respiratory 30 H 30 H 30 H Rate Respiratory Rate [Bilateral Throughout] Respiratory Rate [Chest] Blood Pressure 79/52 86/56 87/54 O2 Sat by Pulse 92 89 89 Oximetry 08/01/20 12:35 Temperature Pulse Rate 112 H Pulse Rate [ Apical] Pulse Rate [ Bilateral Throughout] Pulse Rate [ From Monitor] Respiratory Rate Respiratory Rate [Bilateral Throughout] Respiratory Rate [Chest] Blood Pressure 103/55 O2 Sat by Pulse 94 Oximetry - Lab 08/01/20 05:30 08/01/20 09:33 Most recent lab results ABG pH 7.462 (7.320-7.450) H 08/01/20 04:46 ABG pCO2 81.7 mm Hg 07/28/20 04:15 ABG pO2 130.3 mm Hg (80.0-90.0) H 07/28/20 04:15 ABG HCO3 40.9 mmol/L (20.0-26.0) H 07/28/20 04:15 ABG O2 Saturation 98.1 % (95.0-99.0) 07/28/20 04:15 Calcium 8.2 mg/dL (8.4-10.2) L D 08/01/20 09:33 Phosphorus 3.20 mg/dL (2.5-4.5) 07/08/20 16:13 Magnesium 2.20 mg/dL (1.7-2.3) 07/08/20 16:13 Urine Creatinine 89.2 mg/dL (0.1-20.0) H 07/31/20 16:00 Urine Sodium 26 mmol/L 07/31/20 16:00 Urine Total Protein 108 mg/dL (5-11.8) H 07/31/20 16:00 Medications & Allergies - Medications Allergies/Adverse Reactions: Allergies bee venom protein (honey bee) Allergy (Verified 07/10/18 16:39) Shortness of Breath iv contrast Allergy (Uncoded 07/10/18 16:36) Hives Home Medications: Home Medications Medication Instructions Recorded Confirmed Last Taken Type ALBUTEROL Inhaler(NF) [VENTOLIN 1 puff IH Q4HR PRN #1 inha 07/10/18 07/06/20 06/27/20 Rx Inhaler(NF)] atenoloL [Tenormin] 50 mg PO DAILY 12/28/18 07/06/20 06/27/20 History Aspirin [Aspirin BABY CHEW TAB] 81 mg PO QDAY #30 tab.chew 12/30/18 07/06/20 1 Rx Hydroxychloroquine [Plaquenil] 200 mg PO QDAY 30 Days tablet 12/30/18 07/06/20 06/27/20 Rx Pantoprazole [Protonix TAB] 40 mg PO DAILY #30 tablet 05/04/19 07/06/20 10/06/19 Rx Gabapentin [Gralise] 600 mg PO QDAY 10/09/19 07/06/20 06/27/20 History Venlafaxine [Effexor 25mg tab] 37.5 mg PO QDAY 10/09/19 07/06/20 06/27/20 History ALPRAZolam [Xanax TAB] 2 mg PO Q12HR 06/28/20 07/06/20 06/27/20 History Budesonide/Formoterol Fumarate 10.2 gm IH BID 30 Days hfa.aer.ad 07/01/20 1 09/05/19 Unknown Rx [Symbicort 160-4.5 Mcg Inhaler] Montelukast [Singulair] 10 mg PO QHS 30 Days tablet 07/01/20 07/06/20 Unknown Rx Prednisone [predniSONE 5 mg (6-Day 5 mg PO .TAPER #1 tab.ds.pk 07/01/20 07/06/20 Unknown Rx Pack, 21 Tabs)] levoFLOXacin [Levaquin] 750 mg PO QDAY #3 tablet 07/01/20 07/06/20 Unknown Rx Active Medications: Generic Name Dose Route Start Last Admin Trade Name Freq PRN Reason Stop Dose Admin Acetaminophen 650 mg 07/06/20 13:39 07/27/20 18:34 Tylenol PO 650 mg Q4H PRN Administration Pain MILD(1-3)/Fever >100.5/WILLETT Albuterol/Ipratropium 1 ampul 07/26/20 14:00 08/01/20 08:05 Duoneb *Not For Prn Use* IH 1 ampul TIDRT ROMMEL Administration Alprazolam 0.5 mg 07/07/20 12:28 07/27/20 03:15 Xanax PO 0.5 mg Q8H PRN Administration Anxiety Lipase/Protease/Amylase 1 each 07/08/20 14:50 Pancreazchristina Price 10,500 Unit FEEDTUBE PRN PRN For Clogged Feeding Tube Arformoterol Tartrate 15 mcg 07/07/20 09:15 08/01/20 08:04 Brovana Nebu IH 15 mcg Q12HRT ROMMEL Administration Ascorbic Acid 500 mg 07/08/20 22:00 08/01/20 09:58 Vitamin C PO 500 mg BID ROMMEL Administration Aspirin 81 mg 07/06/20 14:00 08/01/20 09:57 Baby Aspirin PO 81 mg QDAY ROMMEL Administration Budesonide 0.5 mg 07/07/20 09:15 08/01/20 08:04 Pulmicort IH 0.5 mg Q12HRT ROMMEL Administration Chlordiazepoxide HCl 75 mg 07/30/20 13:00 08/01/20 04:21 Librium PO 75 mg Q8H ROMMEL Administration Dextrose 50 ml 07/12/20 16:58 D50w (25gm) Syringe IV Q30MIN PRN Hypoglycemia Protocol Docusate Sodium 100 mg 07/16/20 22:00 08/01/20 09:58 Colace PO Not Given BID ROMMEL Enoxaparin Sodium 30 mg 07/06/20 15:00 08/01/20 09:58 Enoxaparin SUB-Q 30 mg BID ROMMEL Administration Protocol Fentanyl 50 mcg 07/08/20 13:16 07/29/20 15:45 Sublimaze IV 50 mcg Q10MIN PRN Administration ANALGESIA Gabapentin 600 mg 07/25/20 14:00 08/01/20 05:03 Gabapentin PO 600 mg Q8HR ROMMEL Administration Hydrophilic Ointment 1 applic 07/08/20 13:16 07/22/20 23:01 Vaseline Lip Therapy TP 1 applic Q2HR PRN Administration Dry Lips Hydroxychloroquine Sulfate 200 mg 07/07/20 10:00 08/01/20 09:57 Plaquenil PO 200 mg QDAY ROMMEL Administration Fentanyl Citrate 2,000 mcg in 100 mls @ 4.825 mls/hr 07/08/20 14:00 08/01/20 10:47 Fentanyl Drip Premix IV 4 mcg/kg/hr TITR ROMMEL 19.3 mls/hr Administration Protocol 1 MCG/KG/HR Midazolam HCl 100 mg/ Sodium 100 mls @ 2 mls/hr 07/08/20 15:00 08/01/20 03:36 Chloride IV 8 mg/hr TITR ROMMEL 8 mls/hr Administration Protocol 2 MG/HR Sodium Chloride 500 mls @ 10 mls/hr 07/15/20 15:00 Nacl 0.9% 500 Ml IV DIRECT ROMMEL Norepinephrine 4 mg in 250 mls @ 7.5 mls/hr 07/27/20 05:00 Levophed Drip 4 Mg/Ns 250 Ml IV TITR ROMMEL Protocol 2 MCG/MIN Dexmedetomidine HCl 400 mcg/ 104 mls @ 5.106 mls/hr 07/30/20 13:00 Sodium Chloride IV 08/01/20 12:59 TITRATE ROMMEL Protocol 0.2 MCG/KG/HR Vasopressin 20 unit/ Sodium 101 mls @ 9.09 mls/hr 07/30/20 13:00 08/01/20 09:49 Chloride IV 0.03 units/min TITR ROMMEL 9.09 mls/hr Administration Protocol 0.03 UNITS/MIN Phenylephrine HCl 100 mg/ 100 mls @ 3 mls/hr 07/30/20 15:00 08/01/20 03:30 Sodium Chloride IV 30 mcg/min TITR ROMMEL 1.8 mls/hr Titration Protocol 50 MCG/MIN Sodium Chloride 1,000 mls @ 75 mls/hr 07/31/20 08:30 07/31/20 21:59 Nacl 0.9% 1000 Ml IV 75 mls/hr DIRECT ROMMEL Administration Propofol 1,000 mg in 100 mls @ 2.946 mls/hr 07/31/20 20:00 08/01/20 09:16 Diprivan 10 Mg/Ml IV 50 mcg/kg/min DIRECT ROMMEL 29.46 mls/hr Administration Protocol 5 MCG/KG/MIN Dopamine HCl/Dextrose 800 mg in 250 mls @ 3.679 mls/hr 07/31/20 22:00 Intropin Drip 800 Mg/D5w 250 Ml IV TITR ROMMEL Protocol 2 MCG/KG/MIN Ceftriaxone Sodium 2 gm in 100 mls @ 200 mls/hr 08/02/20 10:00 Rocephin/Ns 2 Gm/100 Ml IV Q24HR ROMMEL Protocol Insulin Glargine 5 units 07/12/20 17:00 07/31/20 17:47 Lantus SUB-Q 5 units Q24H ROMMEL Administration Insulin Human Regular 0 unit 08/01/20 00:00 08/01/20 05:50 Humulin R SUB-Q 2 unit Q6HR ROMMEL Administration Protocol Lansoprazole 30 mg 07/10/20 10:00 08/01/20 09:57 Prevacid Solutab FEEDTUBE 30 mg QDAY ROMMEL Administration Methylprednisolone Sodium Succinate 40 mg 07/22/20 14:00 08/01/20 05:03 Solu-Medrol IV 40 mg Q8H ROMMEL Administration Multi-Ingred Cream/Lotion/Oil/Oint 1 applic 07/08/20 13:16 Artificial Tears Ophth Oint OU Q4HR PRN Dry Eye(s) Ondansetron HCl 4 mg 07/06/20 13:39 07/08/20 10:44 Zofran IV 4 mg Q8H PRN Administration Nausea And Vomiting Polyethylene Glycol 17 gm 07/29/20 12:00 08/01/20 09:59 Miralax 3350 PO Not Given DAILY ROMMEL Potassium Chloride 40 meq 08/01/20 09:00 08/01/20 09:57 Potassium Chloride FEEDTUBE 08/01/20 13:00 40 meq ONCE ROMMEL Administration Pseudoephedrine/Acetam/Chlorphenir 10 ml 07/07/20 01:17 07/08/20 08:30 Robitussin Ac PO 10 ml Q4H PRN Administration Cough Quetiapine Fumarate 200 mg 07/25/20 22:00 08/01/20 09:57 Seroquel PO 200 mg BID ROMMEL Administration Quetiapine Fumarate 100 mg 07/25/20 22:00 08/01/20 09:57 Seroquel PO 100 mg BID ROMMEL Administration Simple Syrup 15 ml 07/08/20 14:50 Simple Syrup FEEDTUBE PRN PRN Hypoglycemia Simple Syrup 30 ml 07/08/20 14:50 Simple Syrup FEEDTUBE PRN PRN Hypoglycemia Sodium Bicarbonate 325 mg 07/08/20 14:50 Sodium Bicarbonate FEEDTUBE PRN PRN For Clogged Feeding Tube Sodium Chloride 10 ml 07/06/20 14:00 08/01/20 09:51 Sodium Chloride Flush Syringe 10 Ml IV 10 ml BID ROMMEL Administration Sodium Chloride 10 ml 07/06/20 13:39 07/26/20 06:31 Sodium Chloride Flush Syringe 10 Ml IV 10 ml PRN PRN Administration LINE FLUSH Venlafaxine HCl 37.5 mg 07/07/20 10:00 08/01/20 09:57 Effexor PO 37.5 mg DAILY ROMMEL Administration Zinc Sulfate 220 mg 07/08/20 22:00 08/01/20 09:57 Zinc Sulfate PO 220 mg BID ROMMEL Administration
[2020-08-01] MEDS: SODIUM CHLORIDE 0.9% 1000 ML 1,000 ML IV SCH (12:50)
--- NOTE | 2020-08-01 14:38 | Progress Note ---
Assessment and Plan Assessment and plan: -Severe COVID-19 PNA -On vent. Sedated -ID following -- Acute hypoxic respiratory failure Mechanically ventilated --Right-sided pneumothorax Chest tube management as per deck steward -- GERD (gastroesophageal reflux disease) cont Pantoprazole --SLE (systemic lupus erythematosus related syndrome) Continue home medications-hydroxychloroquine -- DVT prophylaxis Lovenox 30 mg twice daily -- Full code status brief History: 50-year-old female with a past medical history of asthma, hypertension, and lupus complains of generalized body weakness, fever and shortness of breath. Patient states the symptoms started right after she was discharged from [place] on 07/05. She has associated wheezing, fever, cough and she has been using her inhalers with no significant effect. She also has associated diarrhea. Of note, she was hospitalized here in [facility] on 06/28 for asthma exacerbation and had a negative Covid test during the admission. She was treated and discharged. S he presented to [place] for further evaluation after discharge from here and over there, she was found to have positive COVID-19 test and she was placed on steroids and subsequently discharged on Eliquis prophylaxis for DVT. She states that she did not receive remdesivir during the admission. She was discharged from [place] on 07/05. She went home and felt worse. She said that she passed out about 2 times. Due to persistent symptoms, she called EMS who brought her to [facility] for further evaluation. Daily course: 07/07. Patient seen and examined at bedside this morning. Patient is wheezing and slightly short of breath. Change steroids to Solu-Medrol 60 every 6. Added formoterol and budesonide. ID evaluation pending. Started patient on remdesivir as she is short of breath. 07/07: Placed on BIPAP this AM. Will need pulm evaluation. Solumedrol 60mg q6. STAT blood gas ordered. She will be transferred to [facility]. 07/08: Patient took oxygen off and attempts to go to the bathroom and subseque ntly became hypoxemic with sats down into the low 80s. Patient became weak short of breath. After that time patient had persistent coughing and cannot maintain sats until nonrebreather was placed. Patient is transferred to the ICU unit and monitored for respiratory failure possibly requiring intubation. 07/09: ID recommended for convalescent plasma, ordered. Patient intubated overnight. Continue to monitor clinically, scheduled lab, follow inflammatory markers 07/10: Wait for convalescent plasma transfusion, wean off from ventilator as tolerated 07/11: Called patient's daughter and updated. Continue to wean off vent as tolerated, continue tube feeding, monitor vital sign CBC BMP daily. 07/12: remains intubated and sedated. follow inflammatory markers - wean off vent as tolerated 07/13: wean off vent as tolerated, cxr in the am. reviewed vitals 07/14: remains intubated, has not received convalescent plasma yet. Reviewed vitals, tolerating tube feeding. Wean off vent per critical care as tolerated. 07/15: cont to provide supportive care, wean off vent as tolerated - difficult to wean off. 07/16: CXR findings improving, cont to wean off vent 07/17: Follow inflammatory markers, monitor off antibiotics. Wean off vent per pulmonary as tolerated 07/18: Wean off vent per pulmonary as tolerated,Follow inflammatory markers, monitor off antibiotics. 07/19: Wean off vent per pulmonary as tolerated,Follow inflammatory markers, monitor off antibiotics. SBT trial 07/20: Wean off vent as tolerated, continue supportive care, follow inflammatory markers 07/21: continue supportive care, follow inflammatory markers, wean off vent as tolerated 07/22: Continue to wean off from ventilator as tolerated per pulmonary recommendation, follow inflammatory markers. Repeat CBC BMP in the morning. We will repeat Covid test tomorrow to see if patient cleared the infection. 07/23. Continue to wean off from ventilator as tolerated per pulmonary recommendation, follow inflammatory markers. Currently AC mode, rate 16, tidal volume 450 with FiO2 75%vand PEEP 14 07/24/2020. Continue ventilatory support with AC mode, rate 16, tidal volume 450, FiO2 100% and PEEP of 16. Continue Brovana and Pulmicort. Continue IV steroids 40 mg IV every 8 hours. Anticoagulation with Lovenox 30 mg twice daily. Patient currently sedated with Versed and fentanyl. 07/25/2020. Continue ventilatory support with AC mode, rate 16, tidal volume 450, FiO2 75% and PEEP of 16. Continue Brovana and Pulmicort. Continue IV ster oids 40 mg IV every 8 hours. Anticoagulation with Lovenox 30 mg twice daily. Patient currently sedated with Versed and fentanyl. Continue to wean per pulmonary recommendations. 07/26/2020. Continue ventilatory support with AC mode, rate 16, tidal volume 450, FiO2 85% and PEEP of 16. Continue Brovana and Pulmicort. Continue IV steroids 40 mg IV every 8 hours. Anticoagulation with Lovenox 30 mg twice daily. Patient currently sedated with Versed and fentanyl. Continue to wean per protocol. 07/27/2020. Continue ventilatory support with AC mode, rate 16, tidal volume 450, FiO2 100% and PEEP of 16. Patient with increased oxygen requirements the past couple of days. Continue Brovana and Pulmicort. Continue IV steroids 40 mg IV every 8 hours. Anticoagulation with Lovenox 30 mg twice daily. Patient currently sedated with Versed and fentanyl. Dose of Lasix given by pulmonary yesterday to achieve negative fluid balance. Follow-up serial chest x-ray 07/28/2020. Continue ventilatory support with AC mode, rate 16, tidal volume 450, FiO2 100% and PEEP of 16. Wean FiO2 per protocol. Continue Brovana and Pulmicort. Continue IV steroids 40 mg IV every 8 hours. Anticoagulation with Lovenox 30 mg twice daily. Patient currently sedated with Versed and fentanyl. 07/29/2020. Continue ventilatory support with AC mode, rate 16, tidal volume 450, FiO2 100% and PEEP of 16. Wean FiO2 per protocol. Continue Brovana and Pulmicort. Continue IV steroids 40 mg IV every 8 hours. Anticoagulation with Lovenox 30 mg twice daily. Wean sedation as tolerated. 07/30. Continue ventilatory support with AC mode, rate 16, tidal volume 450, FiO2 100% and PEEP of 16. Wean FiO2 per protocol. Continue Brovana and Pulmicort. Continue IV steroids 40 mg IV every 8 hours. Anticoagulation with Lovenox 30 mg twice daily. Wean sedation as tolerated. 07/31. Still ventilated. On sedatives. Renal function worse today. nephrology has been consulted. Started patient on IV hydration. BC - GN rods and staph aureus. She is on vancomycin. 08/01. Still ventilated. On sedatives. Renal function worse today. nephrology has been consulted. Started patient on IV hydration. BC - GN rods and staph aureus. She is on vancomycin. The high probability of a clinically significant, sudden or life threatening deterioration of the [[employer], respiratory, [employer] CH[employer] WORKER] system(s) required my full and direct attention, intervention and personal management. The aggregate critical care time was [32] minutes. This time is in addition to time spent performing reported procedures but includes the following: [x] Data Review and interpretation [x] Patient assessment and monitoring of vital signs [x] Documentation [x] Medication orders and management - Patient Problems (1) COVID-19 Current Visit: Yes Status: Acute (2) Acute respiratory failure Current Visit: No Status: Acute Qualifiers: Respiratory failure complication: unspecified whether with hypoxia or hypercapnia Qualified Code(s): J96.00 - Acute respiratory failure, unspecified whether with hypoxia or hypercapnia (3) GERD (gastroesophageal reflux disease) Current Visit: No Status: Chronic Qualifiers: Esophagitis presence: without esophagitis Qualified Code(s): K21.9 - Gastro-esophageal reflux disease without esophagitis (4) SLE (systemic lupus erythematosus related syndrome) Current Visit: No Status: Chronic (5) DVT prophylaxis Current Visit: No Status: Acute (6) Full code status Current Visit: No Status: Acute History Interval history: Nonresponsive On sedatives Intubated Hospitalist Physical - Physical exam Narrative exam: VITAL SIGNS: Reviewed. GENERAL: Sedated and intubated HEAD: No signs of head trauma. EYES: Pupils are equal. Extraocular motions intact. MOUTH: Oropharynx is normal. NECK: No adenopathy, no JVD. CHEST: Diffuse expiratory wheezes CARDIAC: Normal S1 and S2, without murmurs, gallops, or rubs. VASCULAR: trace edema ABDOMEN: Soft, non tender and non distended. Bowel Sounds normal. NEUROLOGIC EXAM: Sedated SKIN: No obvious lesions - Constitutional Vitals: Temp Pulse Resp BP Pulse Ox 98.1 F 96 H 30 H 103/55 94 08/01/20 12:00 08/01/20 13:52 08/01/20 13:52 08/01/20 12:35 08/01/20 12:35 Results - Labs CBC & Chem 7: 08/02/20 06:37 08/02/20 06:37 Labs: Laboratory Last Values WBC 5.8 K/mm3 (4.5-11.0) 08/01/20 05:30 RBC 2.27 M/mm3 (3.65-5.03) L 08/01/20 05:30 Hgb 7.6 gm/dl (10.1-14.3) L 08/01/20 05:30 Hct 20.9 % (30.3-42.9) L D 08/01/20 05:30 MCV 92 fl (79-97) 08/01/20 05:30 MCH 34 pg (28-32) H 08/01/20 05:30 MCHC 37 % (30-34) H 08/01/20 05:30 RDW 15.2 % (13.2-15.2) 08/01/20 05:30 Plt Count 85 K/mm3 (140-440) L 08/01/20 05:30 Lymph % (Auto) 6.3 % (13.4-35.0) L 07/31/20 05:16 [place] % (Auto) 2.3 % (0.0-7.3) 08/01/20 05:30 Eos % (Auto) 0.3 % (0.0-4.3) 08/01/20 05:30 Baso % (Auto) 0.1 % (0.0-1.8) 07/31/20 05:16 Lymph # (Auto) 0.5 K/mm3 (1.2-5.4) L 07/31/20 05:16 [place] # (Auto) 0.1 K/mm3 (0.0-0.8) 08/01/20 05:30 Eos # (Auto) 0.0 K/mm3 (0.0-0.4) 08/01/20 05:30 Baso # (Auto) 0.0 K/mm3 (0.0-0.1) 08/01/20 05:30 Add Manual Diff Complete 08/01/20 05:30 Total Counted 100 08/01/20 05:30 Seg Neutrophils % Clinical Research Monitor 08/01/20 05:30 Seg Neuts % (Manual) 87.0 % (40.0-70.0) H 08/01/20 05:30 Band Neutrophils % 5.0 % 08/01/20 05:30 Lymphocytes % (Manual) 2.0 % (13.4-35.0) L 08/01/20 05:30 Reactive Lymphs % (Man) 0 % 08/01/20 05:30 Monocytes % (Manual) 2.0 % (0.0-7.3) 08/01/20 05:30 Eosinophils % (Manual) 0 % (0.0-4.3) 08/01/20 05:30 Basophils % (Manual) 0 % (0.0-1.8) 08/01/20 05:30 Metamyelocytes % 4.0 % 08/01/20 05:30 Myelocytes % 0 % 08/01/20 05:30 Promyelocytes % 0 % 08/01/20 05:30 Blast Cells % 0 % 08/01/20 05:30 Nucleated RBC % 1.0 % (0.0-0.9) H 08/01/20 05:30 Seg Neutrophils # 5.4 K/mm3 (1.8-7.7) 08/01/20 05:30 Seg Neutrophils # Man 5.0 K/mm3 (1.8-7.7) 08/01/20 05:30 Band Neutrophils # 0.3 K/mm3 08/01/20 05:30 Lymphocytes # (Manual) 0.1 K/mm3 (1.2-5.4) L 08/01/20 05:30 Abs React Lymphs (Man) 0.0 K/mm3 08/01/20 05:30 Monocytes # (Manual) 0.1 K/mm3 (0.0-0.8) 08/01/20 05:30 Eosinophils # (Manual) 0.0 K/mm3 (0.0-0.4) 08/01/20 05:30 Basophils # (Manual) 0.0 K/mm3 (0.0-0.1) 08/01/20 05:30 Metamyelocytes # 0.2 K/mm3 08/01/20 05:30 Myelocytes # 0.0 K/mm3 08/01/20 05:30 Promyelocytes # 0.0 K/mm3 08/01/20 05:30 Blast Cells # 0.0 K/mm3 08/01/20 05:30 WBC Morphology Not Reportable 08/01/20 05:30 Hypersegmented Neuts Not Reportable 08/01/20 05:30 Hyposegmented Neuts Not Reportable 08/01/20 05:30 Hypogranular Neuts Not Reportable 08/01/20 05:30 Smudge Cells Not Reportable 08/01/20 05:30 Toxic Granulation Not Reportable 08/01/20 05:30 Toxic Vacuolation Not Reportable 08/01/20 05:30 Dohle Bodies Not Reportable 08/01/20 05:30 Pelger-Huet Anomaly Not Reportable 08/01/20 05:30 Savanna Rods Not Reportable 08/01/20 05:30 Platelet Estimate Consistent w auto 08/01/20 05:30 Clumped Platelets Not Reportable 08/01/20 05:30 Plt Clumps, EDTA Not Reportable 08/01/20 05:30 Large Platelets Not Reportable 08/01/20 05:30 Giant Platelets Not Reportable 08/01/20 05:30 Platelet Satelliting Not Reportable 08/01/20 05:30 Plt Morphology Comment Not Reportable 08/01/20 05:30 RBC Morphology Not Reportable 08/01/20 05:30 Dimorphic RBCs Not Reportable 08/01/20 05:30 Polychromasia Not Reportable 08/01/20 05:30 Hypochromasia Not Reportable 08/01/20 05:30 Poikilocytosis Not Reportable 08/01/20 05:30 Anisocytosis 1+ 08/01/20 05:30 Microcytosis Not Reportable 08/01/20 05:30 Macrocytosis Not Reportable 08/01/20 05:30 Spherocytes Not Reportable 08/01/20 05:30 Pappenheimer Bodies Not Reportable 08/01/20 05:30 Sickle Cells Not Reportable 08/01/20 05:30 Target Cells Not Reportable 08/01/20 05:30 Tear Drop Cells Not Reportable 08/01/20 05:30 Ovalocytes Not Reportable 08/01/20 05:30 Helmet Cells Not Reportable 08/01/20 05:30 Raza-Rockfish Bodies Not Reportable 08/01/20 05:30 Pullman Rings Not Reportable 08/01/20 05:30 Kristan Cells Not Reportable 08/01/20 05:30 Bite Cells Not Reportable 08/01/20 05:30 Crenated Cell Not Reportable 08/01/20 05:30 Elliptocytes Not Reportable 08/01/20 05:30 Acanthocytes (Spur) Not Reportable 08/01/20 05:30 Rouleaux Not Reportable 08/01/20 05:30 Hemoglobin C Crystals Not Reportable 08/01/20 05:30 Schistocytes Not Reportable 08/01/20 05:30 Malaria parasites Not Reportable 08/01/20 05:30 Junaid Bodies Not Reportable 08/01/20 05:30 Hem Pathologist Commnt No 08/01/20 05:30 D-Dimer 2522.40 ng/mlDDU (0-234) H 07/31/20 14:14 ABG pH 7.462 (7.320-7.450) H 08/01/20 04:46 POC ABG pCO2 38.6 mmHg (32.0-48.0) 08/01/20 04:46 ABG pCO2 81.7 mm Hg 07/28/20 04:15 POC ABG pO2 70.2 mmHg (83-108) L 08/01/20 04:46 ABG pO2 130.3 mm Hg (80.0-90.0) H 07/28/20 04:15 POC ABG HCO3 27 08/01/20 04:46 ABG HCO3 40.9 mmol/L (20.0-26.0) H 07/28/20 04:15 ABG O2 Saturation 98.1 % (95.0-99.0) 07/28/20 04:15 ABG O2 Content 8.2 (0.0-44) 07/28/20 04:15 POC ABG Base Excess 3 08/01/20 04:46 ABG Base Excess 13.5 mmol/L (-2.0-3.0) H 07/28/20 04:15 ABG Hemoglobin 8.7 (12.0-17.5) L 08/01/20 04:46 ABG Oxyhemoglobin 98.4 (94-98) H 07/31/20 21:26 ABG Carboxyhemoglobin 1.7 % (0.0-5.0) 07/28/20 04:15 ABG Methemoglobin 0.3 (0.0-1.5) 07/31/20 21:26 ABG Sodium 135.7 mmol/L (136.0-145.0) L 08/01/20 04:46 ABG Potassium 3.3 mmol/L (3.40-4.50) L 08/01/20 04:46 ABG Chloride 103.0 mmol/L (98-107) 08/01/20 04:46 ABG Glucose 275 mg/dL (65-95) H 08/01/20 04:46 Oxyhemoglobin 95.8 % (95.0-99.0) 07/28/20 04:15 Carboxyhemoglobin 0.4 (0.5-1.5) L 07/31/20 21:26 FiO2 100 08/01/20 04:46 Sodium 140 mmol/L (137-145) D 08/01/20 09:33 Potassium 3.7 mmol/L (3.6-5.0) D 08/01/20 09:33 Chloride 102.0 mmol/L (98-107) 08/01/20 09:33 Carbon Dioxide 28 mmol/L (22-30) 08/01/20 09:33 Anion Gap 14 mmol/L 08/01/20 09:33 BUN 57 mg/dL (7-17) H 08/01/20 09:33 Creatinine 1.0 mg/dL (0.6-1.2) 08/01/20 09:33 Estimated GFR > 60 ml/min 08/01/20 09:33 BUN/Creatinine Ratio 57 % 08/01/20 09:33 Glucose 250 mg/dL (65-100) H 08/01/20 09:33 POC Glucose 239 mg/dL (70-105) H 08/01/20 11:50 Lactic Acid 1.80 mmol/L (0.7-2.0) 07/31/20 14:14 Calcium 8.2 mg/dL (8.4-10.2) L D 08/01/20 09:33 Phosphorus 3.20 mg/dL (2.5-4.5) 07/08/20 16:13 Magnesium 2.20 mg/dL (1.7-2.3) 07/08/20 16:13 Ferritin 964.8 ng/mL (10.0-200.0) H 07/31/20 14:14 Total Bilirubin 0.30 mg/dL (0.1-1.2) 08/01/20 05:30 AST 117 units/L (5-40) H 08/01/20 05:30 ALT 408 units/L (7-56) H 08/01/20 05:30 Alkaline Phosphatase 63 units/L (35-129) 08/01/20 05:30 Lactate Dehydrogenase 585 units/L (91-180) H 07/31/20 14:14 C-Reactive Protein 49.00 mg/dL (0.00-1.30) H 07/31/20 14:14 Total Protein 4.3 g/dL (6.3-8.2) L D 08/01/20 05:30 Albumin 0.6 g/dL (3.9-5) L 08/01/20 05:30 Albumin/Globulin Ratio 0.2 % 08/01/20 05:30 Triglycerides 759 mg/dL (2-149) H 08/01/20 09:33 Procalcitonin 119.84 ng/mL (<0.15) 07/30/20 17:43 Arterial Blood Glucose 275 mg/dL (65-95) H 08/01/20 04:46 Arterial Blood Ionized Calcium 4.5 mg/dL (4.6-5.3) L 08/01/20 04:46 Urine Color Yellow (Yellow) 07/11/20 09:30 Urine Turbidity Clear (Clear) 07/11/20 09:30 Urine pH 5.0 (5.0-7.0) 07/11/20 09:30 Ur Specific [place] 1.028 (1.003-1.030) 07/11/20 09:30 Urine Protein <15 mg/dl mg/dL (Negative) 07/11/20 09:30 Urine Glucose (UA) Neg mg/dL (Negative) 07/11/20 09:30 Urine Ketones Neg mg/dL (Negative) 07/11/20 09:30 Urine Blood Neg (Negative) 07/11/20 09:30 Urine Nitrite Neg (Negative) 07/11/20 09:30 Urine Bilirubin Neg (Negative) 07/11/20 09:30 Urine Urobilinogen 2.0 mg/dL (<2.0) 07/11/20 09:30 Ur Leukocyte Esterase Neg (Negative) 07/11/20 09:30 Urine WBC (Auto) 1.0 /HPF (0.0-6.0) 07/11/20 09:30 Urine RBC (Auto) 1.0 /HPF (0.0-6.0) 07/11/20 09:30 U Epithel Cells (Auto) 1.0 /HPF (0-13.0) 07/11/20 09:30 Urine Mucus Few /HPF 07/11/20 09:30 Urine Creatinine 89.2 mg/dL (0.1-20.0) H 07/31/20 16:00 Urine Sodium 26 mmol/L 07/31/20 16:00 Urine Total Protein 108 mg/dL (5-11.8) H 07/31/20 16:00 Vancomycin Trough 28.2 ug/mL (5.0-20.0) H 07/31/20 14:14 Coronavirus (PCR) Positive (Negative) A 07/23/20 Unknown SARS-CoV-2 IgG Ab Reactive (NonReactive) A 07/15/20 14:30 Blood Type O POSITIVE 07/09/20 15:30 Antibody Screen Negative 07/09/20 15:30 Microbiology: Microbiology 07/30/20 12:58 Tracheal Aspirate Sputum Culture - Final Methicillin Resist S. Aureus Escherichia Coli 07/30/20 16:35 Nares - Right MRSA Culture - Final 07/12/20 09:52 Tracheal Aspirate Sputum Culture - Final 07/08/20 15:00 Tracheal Aspirate Sputum Culture - Final 07/30/20 17:43 Peripheral/Venous Blood Culture - Preliminary NO GROWTH AFTER 24 HOURS 07/30/20 17:43 Peripheral/Venous Blood Culture - Preliminary NO GROWTH AFTER 24 HOURS 07/27/20 14:18 Peripheral/Venous Blood Culture - Preliminary NO GROWTH AFTER 4 DAYS 07/27/20 14:18 Peripheral/Venous Blood Culture - Preliminary NO GROWTH AFTER 4 DAYS - Diagnostic Impressions Diagnostic Impressions: Echocardiogram 07/19/20 13:13 Transthoracic Echocardiogram Indication: CHF BP: 106/58 Conclusions *The left ventricular systolic function is within normal limits. There are no wall motion abnormalities observed. *The estimated ejection fraction is 60-65%. *Normal left ventricular diastolic filling is observed. Findings Procedure Info: The study quality is fair. Left Ventricle: The left ventricular chamber size, wall thickness and systolic function are within normal limits. There are no wall motion abnormalities observed. Ejection fraction is normal. The estimated ejection fraction is 60-65%. Normal left ventricular diastolic filling is observed. Left Atrium: The left atrium is normal in size with no visual thrombus identified. Right Ventricle: The right ventricular chamber size and systolic function are within normal limits. Right Atrium: The right atrium appears normal. Aortic Valve: The aortic valve is trileaflet. The leaflets are thin with normal excursion. There is no aortic stenosis or regurgitation present. Mitral Valve: The mitral valve leaflets are mildly thickened. There is trace of mitral regurgitation. There is no evidence of mitral stenosis. Tricuspid Valve: The tricuspid valve leaflets are normal. There is trace tricuspid regurgitation. The right ventricular systolic pressure is calculated at 14 mmHg. There is no tricuspid stenosis. Pulmonic Valve: The pulmonic valve appears normal. There is mild pulmonic regurgitation. There is no pulmonic stenosis. Pericardium: The pericardium appears normal. Aorta: The aorta appears normal. Pulmonary Artery: The main pulmonary artery appears normal. Venous: The inferior vena cava appears normal in size. There is a greater than 50% respiratory change in the inferior vena cava dimension. Measurements Chambers 2D Name Value Normal Range IVSd (2D) 1.08 cm (0.6 - 1.1) LVPWd (2D) 0.91 cm (0.6 - 1.1) LVIDd (2D) 4.61 cm (3.7 - 5.6) LVIDs (2D) 3.12 cm (2 - 3.8) LV FS (2D) 32.38 % - EF Teichholz (2D) 60.72 % - Ao root diameter (2D) 3.01 cm (2 - 3.7) Volumes/Mass Name Value Normal Range LA ESV SP 4CH (A/L) 57.18 ml - LA ESV SP 2CH (A/L) 62.63 ml - LA ESV BP (A/L) 60.68 ml - LA ESV BP (A/L) index 28.22 ml/m2 - LA ESV SP 4CH (MOD) 51.17 ml - LA ESV SP 2CH (MOD) 57.8 ml - LA ESV BP (MOD) 54.73 ml - LA ESV BP (MOD) index 25.45 ml/m2 - LV EDV SP 4CH (MOD) 115.34 ml - LV ESV SP 4CH (MOD) 43.26 ml - EF SP 4CH (MOD) 62.5 % - LV EDV SP 2CH (MOD) 43.71 ml - LV ESV SP 2CH (MOD) 17.14 ml - EF SP 2CH (MOD) 60.79 % - LV EDV BP 73.15 ml - LV ESV BP 27.92 ml - BP EF (MOD) 61.83 % - Diastolic/Systolic Function Name Value Normal Range MV E-wave Vmax 0.88 m/sec - MV deceleration time 157.66 msec - MV A-wave Vmax 0.91 m/sec - MV E:A ratio 0.96 ratio - Aortic Valve Name Value Normal Range AV Vmax 1.54 m/sec - AV VTI 31.46 cm - AV peak gradient 9.51 mmHg - AV mean gradient 5.1 mmHg - LVOT diameter 1.95 cm - LVOT Vmax 1.21 m/sec - LVOT VTI 27.59 cm - LVOT peak gradient 5.83 mmHg - LVOT mean gradient 3.3 mmHg - SV LVOT 82.76 ml - SMITH (continuity Vmax) 2.35 cm2 - SMITH (continuity VTI) 2.63 cm2 - Ascending Ao 2.94 cm - Tricuspid Valve Name Value Normal Range TV E-wave Vmax 0.49 m/sec - TR Vmax 1.72 m/sec - TR peak gradient 11.86 mmHg - RAP 3 mmHg - RVSP 14 mmHg - IVC diameter 1.91 cm (1.2 - 2.3) Pulmonic Valve/Qp:Qs Name Value Normal Range PV Vmax 0.94 m/sec - PV peak gradient 3.54 mmHg - NH end-diastolic Vmax 0.54 m/sec - RVOT Vmax 0.68 m/sec - RVOT VTI 13.18 cm - RVOT peak gradient 1.82 mmHg - PV acceleration time 117.98 msec - [place]/IV: Voiding Method Indwelling Catheter IV Catheter Type [Left Upper PICC Line arm] IV Catheter Type [Right INT / Saline Lock Forearm] IV Catheter Type [Left Wrist] INT / Saline Lock IV Catheter Type [Left Hand] Peripheral IV Active Medications - Current Medications Current Medications: Generic Name Dose Route Start Last Admin Trade Name Freq PRN Reason Stop Dose Admin Acetaminophen 650 mg 07/06/20 13:39 07/27/20 18:34 Tylenol PO 650 mg Q4H PRN Administration Pain MILD(1-3)/Fever >100.5/WILLETT Albuterol/Ipratropium 1 ampul 07/26/20 14:00 08/01/20 13:37 Duoneb *Not For Prn Use* IH 1 ampul TIDRT ROMMEL Administration Alprazolam 0.5 mg 07/07/20 12:28 07/27/20 03:15 Xanax PO 0.5 mg Q8H PRN Administration Anxiety Lipase/Protease/Amylase 1 each 07/08/20 14:50 Pancreaze 10,500 Unit FEEDTUBE PRN PRN For Clogged Feeding Tube Arformoterol Tartrate 15 mcg 07/07/20 09:15 08/01/20 08:04 Brovana Nebu IH 15 mcg Q12HRT ROMMEL Administration Ascorbic Acid 500 mg 07/08/20 22:00 08/01/20 09:58 Vitamin C PO 500 mg BID ROMMEL Administration Aspirin 81 mg 07/06/20 14:00 08/01/20 09:57 Baby Aspirin PO 81 mg QDAY [facility] Administration Budesonide 0.5 mg 07/07/20 09:15 08/01/20 08:04 Pulmicort IH 0.5 mg Q12HRT ROMMEL Administration Chlordiazepoxide HCl 75 mg 07/30/20 13:00 08/01/20 04:21 Librium PO 75 mg Q8H [facility] Administration Dextrose 50 ml 07/12/20 16:58 D50w (25gm) Syringe IV Q30MIN PRN Hypoglycemia Protocol Docusate Sodium 100 mg 07/16/20 22:00 08/01/20 09:58 Colace PO Not Given BID [facility] Enoxaparin Sodium 30 mg 07/06/20 15:00 08/01/20 09:58 Enoxaparin SUB-Q 30 mg BID [facility] Administration Protocol Fentanyl 50 mcg 07/08/20 13:16 07/29/20 15:45 Sublimaze IV 50 mcg Q10MIN PRN Administration ANALGESIA Gabapentin 600 mg 07/25/20 14:00 08/01/20 05:03 Gabapentin PO 600 mg Q8HR [facility] Administration Hydrophilic Ointment 1 applic 07/08/20 13:16 07/22/20 23:01 Vaseline Lip Therapy TP 1 applic Q2HR PRN Administration Dry Lips Hydroxychloroquine Sulfate 200 mg 07/07/20 10:00 08/01/20 09:57 Plaquenil PO 200 mg QDAY [facility] Administration Fentanyl Citrate 2,000 mcg in 100 mls @ 4.825 mls/hr 07/08/20 14:00 08/01/20 10:47 Fentanyl Drip Premix IV 4 mcg/kg/hr TITR ROMMEL 19.3 mls/hr Administration Protocol 1 MCG/KG/HR Midazolam HCl 100 mg/ Sodium 100 mls @ 2 mls/hr 07/08/20 15:00 08/01/20 03:36 Chloride IV 8 mg/hr TITR ROMMEL 8 mls/hr Administration Protocol 2 MG/HR Sodium Chloride 500 mls @ 10 mls/hr 07/15/20 15:00 Nacl 0.9% 500 Ml IV DIRECT ROMMEL Norepinephrine 4 mg in 250 mls @ 7.5 mls/hr 07/27/20 05:00 Levophed Drip 4 Mg/Ns 250 Ml IV TITR ROMMEL Protocol 2 MCG/MIN Vasopressin 20 unit/ Sodium 101 mls @ 9.09 mls/hr 07/30/20 13:00 08/01/20 09:49 Chloride IV 0.03 units/min TITR ROMMEL 9.09 mls/hr Administration Protocol 0.03 UNITS/MIN Phenylephrine HCl 100 mg/ 100 mls @ 3 mls/hr 07/30/20 15:00 08/01/20 03:30 Sodium Chloride IV 30 mcg/min TITR ROMMEL 1.8 mls/hr Titration Protocol 50 MCG/MIN Sodium Chloride 1,000 mls @ 75 mls/hr 07/31/20 08:30 08/01/20 12:50 Nacl 0.9% 1000 Ml IV 75 mls/hr DIRECT ROMMEL Administration Propofol 1,000 mg in 100 mls @ 2.946 mls/hr 07/31/20 20:00 08/01/20 13:06 Diprivan 10 Mg/Ml IV 50 mcg/kg/min DIRECT ROMMEL 29.46 mls/hr Titration Protocol 5 MCG/KG/MIN Dopamine HCl/Dextrose 800 mg in 250 mls @ 3.679 mls/hr 07/31/20 22:00 Intropin Drip 800 Mg/D5w 250 Ml IV TITR [facility] Protocol 2 MCG/KG/MIN Ceftriaxone Sodium 2 gm in 100 mls @ 200 mls/hr 08/02/20 10:00 Rocephin/Ns 2 Gm/100 Ml IV Q24HR [facility] Protocol Insulin Glargine 5 units 07/12/20 17:00 07/31/20 17:47 Lantus SUB-Q 5 units Q24H ROMM[facility] Administration Insulin Human Regular 0 unit 08/01/20 00:00 08/01/20 12:53 Humulin R SUB-Q 2 unit Q6HR [facility] Administration Protocol Lansoprazole 30 mg 07/10/20 10:00 08/01/20 09:57 Prevacid Solutab FEEDTUBE 30 mg QDAY ROMM[facility] Administration Methylprednisolone Sodium Succinate 40 mg 07/22/20 14:00 08/01/20 05:03 Solu-Medrol IV 40 mg Q8H [facility] Administration Multi-Ingred Cream/Lotion/Oil/Oint 1 applic 07/08/20 13:16 Artificial Tears Ophth Oint OU Q4HR PRN Dry Eye(s) Ondansetron HCl 4 mg 07/06/20 13:39 07/08/20 10:44 Zofran IV 4 mg Q8H PRN Administration Nausea And Vomiting Polyethylene Glycol 17 gm 07/29/20 12:00 08/01/20 09:59 Miralax 3350 PO Not Given DAILY [facility] Pseudoephedrine/Acetam/Chlorphenir 10 ml 07/07/20 01:17 07/08/20 08:30 Robitussin Ac PO 10 ml Q4H PRN Administration Cough Quetiapine Fumarate 200 mg 07/25/20 22:00 08/01/20 09:57 Seroquel PO 200 mg BID ROMM[facility] Administration Quetiapine Fumarate 100 mg 07/25/20 22:00 08/01/20 09:57 Seroquel PO 100 mg BID ROMM[facility] Administration Simple Syrup 15 ml 07/08/20 14:50 Simple Syrup FEEDTUBE PRN PRN Hypoglycemia Simple Syrup 30 ml 07/08/20 14:50 Simple Syrup FEEDTUBE PRN PRN Hypoglycemia Sodium Bicarbonate 325 mg 07/08/20 14:50 Sodium Bicarbonate FEEDTUBE PRN PRN For Clogged Feeding Tube Sodium Chloride 10 ml 07/06/20 14:00 08/01/20 09:51 Sodium Chloride Flush Syringe 10 Ml IV 10 ml BID ROMMEL Administration Sodium Chloride 10 ml 07/06/20 13:39 07/26/20 06:31 Sodium Chloride Flush Syringe 10 Ml IV 10 ml PRN PRN Administration LINE FLUSH Venlafaxine HCl 37.5 mg 07/07/20 10:00 08/01/20 09:57 Effexor PO 37.5 mg DAILY ROMM[facility] Administration Zinc Sulfate 220 mg 07/08/20 22:00 08/01/20 09:57 Zinc Sulfate PO 220 mg BID ROMMEL Administration Nutrition/Malnutrition Assess - Dietary Evaluation Nutrition/Malnutrition Findings: Nutrition Notes Start: 07/08/20 14:02 Freq: Status: Active Protocol: Document 08/01/20 11:00 EN (Rec: 08/01/20 12:16 EN [id number]) Co-Sign 08/01/20 11:00 NHALL Nutrition Notes Initial or Follow up Reassessment Current Diagnosis Acute Kidney Injury, Hypertension,Heart Failure Other Pertinent Diagnosis Acute respiratory failure, COVID(+), GERD, Lupus, Anemia Current Diet Vital AF 1.2 at 55 mL/hr (goal rate) Labs/Tests Na 132 K+ 2.8 BUN 47 POC Glu 246 Pertinent Medications Diprivan Fentanyl Solu-medrol Humulin KCl Vitamin C Zinc Sulfate Height 5 ft 5 in Weight 98.1 kg [place] Body Weight (kg) 56.81 BMI 35.9 Weight change and time frame Wt change noted Weight Status Obese Subjective/Other Information F/u for TF tolerance. Pt remains on vent and is no longer proned. TF infusing at 20 ml/hr and pt tolerating well. RN reports pt had 4 BM last night and 1 BM this morning. Percent of energy/protein needs met: 36%/36% Burn Absent Trauma Absent GI Symptoms None Current % PO Negligible Minimum of two criteria No physical signs of malnutrition #1 Nutrition Diagnosis Inadequate oral intake Diagnosis Progress(for reassessment Continues documentation) Is patient on ventilator? Yes Is Patient Ambulatory and/or Out of Bed No REE-([facility]-confined to bed) 1937.676 Kcal/Kg value to use for calculation 17 Approximate Energy Requirements Using 1668 kcal/Kg Calculation Used for Recommendations Kcal/kg Additional Notes Pro: greater than 114 g (>2 g/ kg IBW) Fluid: 1ml/kcal or per MD Nutrition Intervention Change Diet Order: Continue TF Nutrition Support: Vital AF at 55 ml/hr Flush 75 ml q4h 16 hr prone: Vital AF 1.2 at 10 ml for 16hr . Flush 50 ml q4h. For remaining 8 hours, Vital AF 1.2 at 135 ml/hr. Flush 125 ml q4h. Kcal 1,584 Protein (gm) 99 Fluid (mL) 1,070 Goal #1 Meet at least 80% of protein and energy needs via TF Anticipated Discharge Needs: Cannot determine at this time Follow-Up By: 08/05/20 Additional Comments Follow for TF rate/tolerance and BM pattern
--- NOTE | 2020-08-01 14:57 | Progress Note ---
Assessment and Plan Acute hypoxemic respiratory failure, now on MVS Bilateral pneumonia, left greater than right lungs. COVID-19 infection. History of congestive heart failure. History of lupus erythematosus. Leukocytosis. Tobacco use disorder. Acute asthma exacerbation. History of hypertension. Obesity - follow CXR and review re: pneumothorax / chest tube - keep set rate at 30 overnight - keep TV at 400 ml's - continue sedation and target RASS -2 to -3 acutely - keep chest tube to continuous wall suction - repeat ABG prn - continue Seroquel to 300 mg po tid for sedation / anxiolysis - growing E. Coli & MRSA from tracheal aspirate; continue and de-escalate AB's per ID recommendations - prognosis grave to guarded especially neurologic-rai - continue care as below otherwise; - wean Vasopressors for target MAP > 65 mmHg - continue Librium - repeat COVID-19 test is positive - continue systemic steroids - continue to wean supplemental oxygen for target O2 sat's > 92% - continue low dose SSI - continue Seroquel 300 mg p.o. bid - continue airborne and contact isolation - continue Zinc & Vit C supplementaion - complete Remdesivir - de-escalate AB's per ID rec's - continue systemic steroids for Asthma / severe COVID infection - continue Daily SAT and SBT assessment as tolerated - VAP bundle addressed - continue lung protective strategies - continue bronchodilators with pulmonary hygiene per RT - wean per pulmonary driven protocols otherwise - accuchecks with glycemic control per SSI (While critically ill target blood glucose of 140-180 mg/dL; avoid hypoglycemia) - sedation prn for target RASS -1 to -2 - avoid nephrotoxins, renally dose all medications - continue to avoid benzodiazepine's, reduce the possibility of delirium - prn analgesia per CPOT score - Maintenance of sleep-wake cycle, avoid delirium - continue enteral nutritional support at goal rate as tolerated - G.I. & VTE prophylaxis - PT/OT/ROM exercises - continue mobility protocols for pressure ulcer prophylaxis - Monitor hemodynamics closely - continue other care per attending / other consultants - discharge planning ongoing concurrently .... Re-evaluate in am & prn CONDITION: CRITICAL PROGNOSIS: GUARDED CODE STATUS: FULL CODE The high probability of a clinically significant, sudden or life-threatening deterioration of the [respiratory, cardiovascular & neurologic] system(s) required my full and direct attention, intervention and personal management. The aggregate critical care time was [32] minutes without overlap. Time includes spent on; [x] Data Review and interpretation [x] Patient assessment and monitoring of vital signs [x] Documentation [x] Medication orders and management Subjective Date of service: 08/01/20 Principal diagnosis: Ac hypoxemic resp failure; PNA; COVID-19 infxn; SLE; Asthma exacerbation Interval history: Patient is seen today for: Acute hypoxemic respiratory failure; Bilateral pneumonia; COVID-19 infection; H/O CHF; SLE; Acute asthma exacerbation. HTN; Obesity Seen and examined at bedside; 24hour events reviewed; nursing and respiratory ca re staff consulted; no adverse overnight events reported to me; resting peacefully in bed; remains on MVS; oxygenation improved and FiO2 down to 40%; AMS is persistent but remains sedated re: agitation desaturations; no emesis or overt aspiration Objective Vital Signs - 12hr 08/01/20 08/01/20 08/01/20 03:00 03:16 03:30 Temperature Pulse Rate 81 94 H 89 Pulse Rate [ Apical] Pulse Rate [ Bilateral Throughout] Pulse Rate [ From Monitor] Respiratory 49 H 41 H 50 H Rate Respiratory Rate [Bilateral Throughout] Respiratory Rate [Chest] Blood Pressure 137/94 138/81 132/81 O2 Sat by Pulse 97 96 96 Oximetry 08/01/20 08/01/20 08/01/20 03:46 04:00 04:16 Temperature Pulse Rate 95 H 84 100 H Pulse Rate [ Apical] Pulse Rate [ Bilateral Throughout] Pulse Rate [ From Monitor] Respiratory 50 H 50 H 50 H Rate Respiratory Rate [Bilateral Throughout] Respiratory Rate [Chest] Blood Pressure 117/81 116/78 120/66 O2 Sat by Pulse 95 93 95 Oximetry 08/01/20 08/01/20 08/01/20 04:25 04:30 04:46 Temperature Pulse Rate 93 H 90 84 Pulse Rate [ Apical] Pulse Rate [ Bilateral Throughout] Pulse Rate [ From Monitor] Respiratory 49 H 49 H Rate Respiratory Rate [Bilateral Throughout] Respiratory Rate [Chest] Blood Pressure 116/78 120/71 113/76 O2 Sat by Pulse 95 95 93 Oximetry 08/01/20 08/01/20 08/01/20 05:00 05:16 05:30 Temperature Pulse Rate 98 H 101 H 94 H Pulse Rate [ Apical] Pulse Rate [ Bilateral Throughout] Pulse Rate [ From Monitor] Respiratory 50 H 49 H 50 H Rate Respiratory Rate [Bilateral Throughout] Respiratory Rate [Chest] Blood Pressure 113/71 105/69 114/71 O2 Sat by Pulse 94 95 96 Oximetry 08/01/20 08/01/20 08/01/20 05:46 06:00 06:16 Temperature Pulse Rate 82 95 H 95 H Pulse Rate [ Apical] Pulse Rate [ Bilateral Throughout] Pulse Rate [ From Monitor] Respiratory 50 H 50 H 50 H Rate Respiratory Rate [Bilateral Throughout] Respiratory Rate [Chest] Blood Pressure 110/71 112/79 121/73 O2 Sat by Pulse 94 96 96 Oximetry 08/01/20 08/01/20 08/01/20 06:30 06:46 07:00 Temperature Pulse Rate 91 H 92 H 88 Pulse Rate [ Apical] Pulse Rate [ Bilateral Throughout] Pulse Rate [ From Monitor] Respiratory 50 H 50 H 50 H Rate Respiratory Rate [Bilateral Throughout] Respiratory Rate [Chest] Blood Pressure 122/80 116/84 120/84 O2 Sat by Pulse 97 96 97 Oximetry 08/01/20 08/01/20 08/01/20 07:16 07:30 07:46 Temperature Pulse Rate 92 H 101 H 101 H Pulse Rate [ Apical] Pulse Rate [ Bilateral Throughout] Pulse Rate [ From Monitor] Respiratory 50 H 50 H 50 H Rate Respiratory Rate [Bilateral Throughout] Respiratory Rate [Chest] Blood Pressure 127/82 122/86 114/76 O2 Sat by Pulse 97 97 96 Oximetry 08/01/20 08/01/20 08/01/20 08:00 08:02 08:16 Temperature 97.9 F Pulse Rate 103 H 95 H 95 H Pulse Rate [ 88 Apical] Pulse Rate [ Bilateral Throughout] Pulse Rate [ 88 From Monitor] Respiratory 49 H 44 H Rate Respiratory Rate [Bilateral Throughout] Respiratory Rate [Chest] Blood Pressure 121/86 121/86 116/81 O2 Sat by Pulse 98 96 97 Oximetry 08/01/20 08/01/20 08/01/20 08:30 08:46 08:51 Temperature Pulse Rate 98 H 101 H Pulse Rate [ Apical] Pulse Rate [ 106 H Bilateral Throughout] Pulse Rate [ From Monitor] Respiratory 42 H 44 H Rate Respiratory 46 H Rate [Bilateral Throughout] Respiratory Rate [Chest] Blood Pressure 109/64 118/93 O2 Sat by Pulse 91 96 Oximetry 08/01/20 08/01/20 08/01/20 09:00 09:16 09:30 Temperature Pulse Rate 92 H 101 H 105 H Pulse Rate [ Apical] Pulse Rate [ Bilateral Throughout] Pulse Rate [ From Monitor] Respiratory 44 H 30 H 30 H Rate Respiratory Rate [Bilateral Throughout] Respiratory Rate [Chest] Blood Pressure 106/72 116/75 103/58 O2 Sat by Pulse 96 96 94 Oximetry 08/01/20 08/01/20 08/01/20 09:46 10:00 10:16 Temperature Pulse Rate 100 H 102 H 105 H Pulse Rate [ Apical] Pulse Rate [ Bilateral Throughout] Pulse Rate [ From Monitor] Respiratory 30 H 30 H 30 H Rate Respiratory Rate [Bilateral Throughout] Respiratory 30 H Rate [Chest] Blood Pressure 101/67 152/104 111/62 O2 Sat by Pulse 94 95 93 Oximetry 08/01/20 08/01/20 08/01/20 10:30 10:46 11:00 Temperature Pulse Rate 109 H 114 H 117 H Pulse Rate [ Apical] Pulse Rate [ Bilateral Throughout] Pulse Rate [ From Monitor] Respiratory 30 H 30 H 30 H Rate Respiratory Rate [Bilateral Throughout] Respiratory Rate [Chest] Blood Pressure 100/46 79/52 86/56 O2 Sat by Pulse 92 92 89 Oximetry 08/01/20 08/01/20 08/01/20 11:16 12:00 12:35 Temperature 98.1 F Pulse Rate 114 H 112 H Pulse Rate [ Apical] Pulse Rate [ Bilateral Throughout] Pulse Rate [ From Monitor] Respiratory 30 H Rate Respiratory Rate [Bilateral Throughout] Respiratory Rate [Chest] Blood Pressure 87/54 103/55 O2 Sat by Pulse 89 94 Oximetry 08/01/20 13:52 Temperature Pulse Rate Pulse Rate [ Apical] Pulse Rate [ 96 H Bilateral Throughout] Pulse Rate [ From Monitor] Respiratory Rate Respiratory 30 H Rate [Bilateral Throughout] Respiratory Rate [Chest] Blood Pressure O2 Sat by Pulse Oximetry Constitutional: appears uncomfortable, other (middle aged obese female with mildly increased respiratory effort at rest on MVS) Eyes: non-icteric ENT: oropharynx moist, other (ETT 23cm YANET) Neck: supple, no lymphadenopathy, no JVD Effort: mildly labored Ascultation: Bilateral: diminished breath sounds, rhonchi (scant ) Percussion: Bilateral: not dull Cardiovascular: regular rate and rhythm, other (S1,S2) Gastrointestinal: normoactive bowel sounds, soft, non-tender, non-distended Integumentary: normal Extremities: no cyanosis, no edema, pulses normal, no ischemia or petechiae Neurologic: pupils equal and round, other (sedated) Psychiatric: other (unable to assess re: AMS / sedation) CBC and BMP: 08/01/20 05:30 08/01/20 09:33 ABG, PT/INR, D-dimer: ABG ABG pH 7.462 (7.320-7.450) H 08/01/20 04:46 POC ABG pCO2 38.6 mmHg (32.0-48.0) 08/01/20 04:46 ABG pCO2 81.7 mm Hg 07/28/20 04:15 POC ABG pO2 70.2 mmHg (83-108) L 08/01/20 04:46 ABG pO2 130.3 mm Hg (80.0-90.0) H 07/28/20 04:15 POC ABG HCO3 27 08/01/20 04:46 ABG O2 Saturation 98.1 % (95.0-99.0) 07/28/20 04:15 PT/INR, D-dimer D-Dimer 2522.40 ng/mlDDU (0-234) H 07/31/20 14:14 Abnormal lab findings: Abnormal Labs 07/06/20 07/06/20 07/07/20 05:24 17:16 04:50 WBC 13.5 H 12.7 H RBC Hgb Hct MCH MCHC Plt Count Lymph % (Auto) Lymph # (Auto) Seg Neutrophils % Seg Neuts % (Manual) 86.0 H 87.0 H Lymphocytes % (Manual) 6.0 L 9.0 L Eosinophils % (Manual) Nucleated RBC % Seg Neutrophils # Seg Neutrophils # Man 11.6 H 11.0 H Lymphocytes # (Manual) 0.8 L 1.1 L Eosinophils # (Manual) D-Dimer ABG pH POC ABG pCO2 POC ABG pO2 ABG pO2 ABG HCO3 ABG O2 Saturation ABG Base Excess ABG Hemoglobin ABG Oxyhemoglobin ABG Sodium ABG Potassium ABG Chloride ABG Glucose Oxyhemoglobin Carboxyhemoglobin Sodium Potassium Chloride Carbon Dioxide BUN Creatinine Glucose POC Glucose Lactic Acid Calcium Ferritin AST ALT Lactate Dehydrogenase 242 H C-Reactive Protein 7.30 H Total Protein Albumin Triglycerides Arterial Blood Glucose Arterial Blood Ionized Calcium Urine Creatinine Urine Total Protein Vancomycin Trough Coronavirus (PCR) SARS-CoV-2 IgG Ab 07/07/20 07/07/20 07/07/20 04:50 14:22 14:22 WBC RBC Hgb Hct MCH MCHC Plt Count Lymph % (Auto) Lymph # (Auto) Seg Neutrophils % Seg Neuts % (Manual) Lymphocytes % (Manual) Eosinophils % (Manual) Nucleated RBC % Seg Neutrophils # Seg Neutrophils # Man Lymphocytes # (Manual) Eosinophils # (Manual) D-Dimer ABG pH POC ABG pCO2 POC ABG pO2 ABG pO2 ABG HCO3 ABG O2 Saturation ABG Base Excess ABG Hemoglobin ABG Oxyhemoglobin ABG Sodium ABG Potassium ABG Chloride ABG Glucose Oxyhemoglobin Carboxyhemoglobin Sodium Potassium Chloride Carbon Dioxide BUN 18 H Creatinine Glucose 138 H POC Glucose Lactic Acid Calcium Ferritin 228.2 H AST ALT Lactate Dehydrogenase 277 H C-Reactive Protein Total Protein 5.9 L Albumin 3.4 L Triglycerides Arterial Blood Glucose Arterial Blood Ionized Calcium Urine Creatinine Urine Total Protein Vancomycin Trough Coronavirus (PCR) SARS-CoV-2 IgG Ab 07/08/20 07/08/20 07/08/20 11:18 12:57 16:13 WBC RBC Hgb Hct MCH MCHC Plt Count Lymph % (Auto) Lymph # (Auto) Seg Neutrophils % Seg Neuts % (Manual) Lymphocytes % (Manual) Eosinophils % (Manual) Nucleated RBC % Seg Neutrophils # Seg Neutrophils # Man Lymphocytes # (Manual) Eosinophils # (Manual) D-Dimer ABG pH POC ABG pCO2 POC ABG pO2 ABG pO2 39.3 L* ABG HCO3 ABG O2 Saturation 76.8 L ABG Base Excess ABG Hemoglobin ABG Oxyhemoglobin ABG Sodium ABG Potassium ABG Chloride ABG Glucose Oxyhemoglobin 75.3 L Carboxyhemoglobin Sodium Potassium Chloride Carbon Dioxide 20 L D BUN Creatinine Glucose 135 H POC Glucose 106 H Lactic Acid Calcium 8.0 L Ferritin AST ALT Lactate Dehydrogenase C-Reactive Protein Total Protein Albumin Triglycerides Arterial Blood Glucose Arterial Blood Ionized Calcium Urine Creatinine Urine Total Protein Vancomycin Trough Coronavirus (PCR) SARS-CoV-2 IgG Ab 07/08/20 07/08/20 07/09/20 17:04 18:45 04:00 WBC 15.6 H RBC Hgb Hct MCH MCHC Plt Count Lymph % (Auto) 4.7 L Lymph # (Auto) 0.7 L Seg Neutrophils % Seg Neuts % (Manual) Lymphocytes % (Manual) Eosinophils % (Manual) Nucleated RBC % Seg Neutrophils # 14.2 H Seg Neutrophils # Man Lymphocytes # (Manual) Eosinophils # (Manual) D-Dimer ABG pH POC ABG pCO2 POC ABG pO2 ABG pO2 181.8 H ABG HCO3 ABG O2 Saturation 99.1 H ABG Base Excess ABG Hemoglobin 11.4 L ABG Oxyhemoglobin ABG Sodium ABG Potassium ABG Chloride ABG Glucose Oxyhemoglobin Carboxyhemoglobin Sodium Potassium Chloride Carbon Dioxide BUN Creatinine Glucose POC Glucose 117 H Lactic Acid Calcium Ferritin AST ALT Lactate Dehydrogenase C-Reactive Protein Total Protein Albumin Triglycerides Arterial Blood Glucose Arterial Blood Ionized Calcium Urine Creatinine Urine Total Protein Vancomycin Trough Coronavirus (PCR) SARS-CoV-2 IgG Ab 07/09/20 07/09/20 07/09/20 04:00 04:00 04:49 WBC RBC Hgb Hct MCH MCHC Plt Count Lymph % (Auto) Lymph # (Auto) Seg Neutrophils % Seg Neuts % (Manual) Lymphocytes % (Manual) Eosinophils % (Manual) Nucleated RBC % Seg Neutrophils # Seg Neutrophils # Man Lymphocytes # (Manual) Eosinophils # (Manual) D-Dimer ABG pH POC ABG pCO2 POC ABG pO2 ABG pO2 ABG HCO3 26.2 H ABG O2 Saturation ABG Base Excess ABG Hemoglobin 11.2 L ABG Oxyhemoglobin ABG Sodium ABG Potassium ABG Chloride ABG Glucose Oxyhemoglobin 94.9 L Carboxyhemoglobin Sodium Potassium Chloride Carbon Dioxide BUN Creatinine Glucose 158 H POC Glucose Lactic Acid Calcium 8.2 L Ferritin 320.0 H AST ALT Lactate Dehydrogenase 391 H C-Reactive Protein 9.50 H Total Protein 5.9 L Albumin 3.2 L Triglycerides Arterial Blood Glucose Arterial Blood Ionized Calcium Urine Creatinine Urine Total Protein Vancomycin Trough Coronavirus (PCR) SARS-CoV-2 IgG Ab 07/09/20 07/09/20 07/09/20 11:56 17:49 23:39 WBC RBC Hgb Hct MCH MCHC Plt Count Lymph % (Auto) Lymph # (Auto) Seg Neutrophils % Seg Neuts % (Manual) Lymphocytes % (Manual) Eosinophils % (Manual) Nucleated RBC % Seg Neutrophils # Seg Neutrophils # Man Lymphocytes # (Manual) Eosinophils # (Manual) D-Dimer ABG pH POC ABG pCO2 POC ABG pO2 ABG pO2 ABG HCO3 ABG O2 Saturation ABG Base Excess ABG Hemoglobin ABG Oxyhemoglobin ABG Sodium ABG Potassium ABG Chloride ABG Glucose Oxyhemoglobin Carboxyhemoglobin Sodium Potassium Chloride Carbon Dioxide BUN Creatinine Glucose POC Glucose 156 H 119 H 145 H Lactic Acid Calcium Ferritin AST ALT Lactate Dehydrogenase C-Reactive Protein Total Protein Albumin Triglycerides Arterial Blood Glucose Arterial Blood Ionized Calcium Urine Creatinine Urine Total Protein Vancomycin Trough Coronavirus (PCR) SARS-CoV-2 IgG Ab 07/10/20 07/10/20 07/10/20 03:32 05:26 11:22 WBC RBC Hgb Hct MCH MCHC Plt Count Lymph % (Auto) Lymph # (Auto) Seg Neutrophils % Seg Neuts % (Manual) Lymphocytes % (Manual) Eosinophils % (Manual) Nucleated RBC % Seg Neutrophils # Seg Neutrophils # Man Lymphocytes # (Manual) Eosinophils # (Manual) D-Dimer ABG pH POC ABG pCO2 POC ABG pO2 ABG pO2 75.7 L ABG HCO3 27.5 H ABG O2 Saturation ABG Base Excess ABG Hemoglobin 9.3 L ABG Oxyhemoglobin ABG Sodium ABG Potassium ABG Chloride ABG Glucose Oxyhemoglobin 94.7 L Carboxyhemoglobin Sodium Potassium Chloride Carbon Dioxide BUN Creatinine Glucose POC Glucose 156 H 148 H Lactic Acid Calcium Ferritin AST ALT Lactate Dehydrogenase C-Reactive Protein Total Protein Albumin Triglycerides Arterial Blood Glucose Arterial Blood Ionized Calcium Urine Creatinine Urine Total Protein Vancomycin Trough Coronavirus (PCR) SARS-CoV-2 IgG Ab 07/10/20 07/10/20 07/10/20 12:10 12:10 18:20 WBC 14.1 H RBC 3.33 L Hgb 9.9 L Hct MCH MCHC Plt Count Lymph % (Auto) Lymph # (Auto) Seg Neutrophils % Seg Neuts % (Manual) 89.0 H Lymphocytes % (Manual) 8.0 L Eosinophils % (Manual) Nucleated RBC % Seg Neutrophils # Seg Neutrophils # Man 12.5 H Lymphocytes # (Manual) 1.1 L Eosinophils # (Manual) D-Dimer ABG pH POC ABG pCO2 POC ABG pO2 ABG pO2 ABG HCO3 ABG O2 Saturation ABG Base Excess ABG Hemoglobin ABG Oxyhemoglobin ABG Sodium ABG Potassium ABG Chloride ABG Glucose Oxyhemoglobin Carboxyhemoglobin Sodium Potassium Chloride Carbon Dioxide BUN 21 H Creatinine Glucose 154 H POC Glucose 181 H Lactic Acid Calcium 8.0 L Ferritin AST ALT Lactate Dehydrogenase C-Reactive Protein Total Protein 5.4 L Albumin 3.0 L Triglycerides Arterial Blood Glucose Arterial Blood Ionized Calcium Urine Creatinine Urine Total Protein Vancomycin Trough Coronavirus (PCR) SARS-CoV-2 IgG Ab 07/10/20 07/11/20 07/11/20 23:51 04:05 05:43 WBC RBC Hgb Hct MCH MCHC Plt Count Lymph % (Auto) Lymph # (Auto) Seg Neutrophils % Seg Neuts % (Manual) Lymphocytes % (Manual) Eosinophils % (Manual) Nucleated RBC % Seg Neutrophils # Seg Neutrophils # Man Lymphocytes # (Manual) Eosinophils # (Manual) D-Dimer ABG pH 7.348 L POC ABG pCO2 POC ABG pO2 ABG pO2 93.6 H ABG HCO3 28.5 H ABG O2 Saturation ABG Base Excess ABG Hemoglobin 10.1 L ABG Oxyhemoglobin ABG Sodium ABG Potassium ABG Chloride ABG Glucose Oxyhemoglobin Carboxyhemoglobin Sodium Potassium Chloride Carbon Dioxide BUN Creatinine Glucose POC Glucose 116 H 132 H Lactic Acid Calcium Ferritin AST ALT Lactate Dehydrogenase C-Reactive Protein Total Protein Albumin Triglycerides Arterial Blood Glucose Arterial Blood Ionized Calcium Urine Creatinine Urine Total Protein Vancomycin Trough Coronavirus (PCR) SARS-CoV-2 IgG Ab 07/11/20 07/11/20 07/11/20 09:11 09:11 09:11 WBC 15.8 H RBC 3.44 L Hgb Hct MCH MCHC Plt Count Lymph % (Auto) Lymph # (Auto) Seg Neutrophils % Seg Neuts % (Manual) 92.0 H Lymphocytes % (Manual) 4.0 L Eosinophils % (Manual) Nucleated RBC % Seg Neutrophils # Seg Neutrophils # Man 14.5 H Lymphocytes # (Manual) 0.6 L Eosinophils # (Manual) D-Dimer 360.61 H ABG pH POC ABG pCO2 POC ABG pO2 ABG pO2 ABG HCO3 ABG O2 Saturation ABG Base Excess ABG Hemoglobin ABG Oxyhemoglobin ABG Sodium ABG Potassium ABG Chloride ABG Glucose Oxyhemoglobin Carboxyhemoglobin Sodium Potassium Chloride 107.1 H Carbon Dioxide BUN 22 H Creatinine Glucose 149 H POC Glucose Lactic Acid Calcium 7.8 L Ferritin AST ALT Lactate Dehydrogenase 483 H C-Reactive Protein 2.30 H Total Protein 4.9 L Albumin 3.0 L Triglycerides Arterial Blood Glucose Arterial Blood Ionized Calcium Urine Creatinine Urine Total Protein Vancomycin Trough Coronavirus (PCR) SARS-CoV-2 IgG Ab 07/11/20 07/11/20 07/11/20 09:11 12:16 17:55 WBC RBC Hgb Hct MCH MCHC Plt Count Lymph % (Auto) Lymph # (Auto) Seg Neutrophils % Seg Neuts % (Manual) Lymphocytes % (Manual) Eosinophils % (Manual) Nucleated RBC % Seg Neutrophils # Seg Neutrophils # Man Lymphocytes # (Manual) Eosinophils # (Manual) D-Dimer ABG pH POC ABG pCO2 POC ABG pO2 ABG pO2 ABG HCO3 ABG O2 Saturation ABG Base Excess ABG Hemoglobin ABG Oxyhemoglobin ABG Sodium ABG Potassium ABG Chloride ABG Glucose Oxyhemoglobin Carboxyhemoglobin Sodium Potassium Chloride Carbon Dioxide BUN Creatinine Glucose POC Glucose 157 H 166 H Lactic Acid Calcium Ferritin 371.2 H AST ALT Lactate Dehydrogenase C-Reactive Protein Total Protein Albumin Triglycerides Arterial Blood Glucose Arterial Blood Ionized Calcium Urine Creatinine Urine Total Protein Vancomycin Trough Coronavirus (PCR) SARS-CoV-2 IgG Ab 07/12/20 07/12/20 07/12/20 00:32 04:00 04:00 WBC RBC 3.52 L Hgb Hct MCH MCHC Plt Count Lymph % (Auto) Lymph # (Auto) Seg Neutrophils % Seg Neuts % (Manual) 90.0 H Lymphocytes % (Manual) 4.0 L Eosinophils % (Manual) Nucleated RBC % Seg Neutrophils # Seg Neutrophils # Man 9.5 H Lymphocytes # (Manual) 0.4 L Eosinophils # (Manual) D-Dimer ABG pH POC ABG pCO2 POC ABG pO2 ABG pO2 ABG HCO3 ABG O2 Saturation ABG Base Excess ABG Hemoglobin ABG Oxyhemoglobin ABG Sodium ABG Potassium ABG Chloride ABG Glucose Oxyhemoglobin Carboxyhemoglobin Sodium Potassium Chloride Carbon Dioxide 31 H BUN 21 H Creatinine Glucose 175 H POC Glucose 178 H Lactic Acid Calcium 8.0 L Ferritin AST ALT Lactate Dehydrogenase C-Reactive Protein Total Protein 5.4 L Albumin 3.0 L Triglycerides Arterial Blood Glucose Arterial Blood Ionized Calcium Urine Creatinine Urine Total Protein Vancomycin Trough Coronavirus (PCR) SARS-CoV-2 IgG Ab 07/12/20 07/12/20 07/12/20 04:01 05:47 12:09 WBC RBC Hgb Hct MCH MCHC Plt Count Lymph % (Auto) Lymph # (Auto) Seg Neutrophils % Seg Neuts % (Manual) Lymphocytes % (Manual) Eosinophils % (Manual) Nucleated RBC % Seg Neutrophils # Seg Neutrophils # Man Lymphocytes # (Manual) Eosinophils # (Manual) D-Dimer ABG pH 7.465 H POC ABG pCO2 POC ABG pO2 ABG pO2 ABG HCO3 ABG O2 Saturation ABG Base Excess ABG Hemoglobin 10.6 L ABG Oxyhemoglobin ABG Sodium ABG Potassium ABG Chloride ABG Glucose 177 H Oxyhemoglobin Carboxyhemoglobin Sodium Potassium Chloride Carbon Dioxide BUN Creatinine Glucose POC Glucose 185 H 227 H Lactic Acid Calcium Ferritin AST ALT Lactate Dehydrogenase C-Reactive Protein Total Protein Albumin Triglycerides Arterial Blood Glucose 177 H Arterial Blood Ionized Calcium 4.5 L Urine Creatinine Urine Total Protein Vancomycin Trough Coronavirus (PCR) SARS-CoV-2 IgG Ab 07/12/20 07/12/20 07/13/20 17:34 23:57 05:06 WBC RBC Hgb Hct MCH MCHC Plt Count Lymph % (Auto) Lymph # (Auto) Seg Neutrophils % Seg Neuts % (Manual) Lymphocytes % (Manual) Eosinophils % (Manual) Nucleated RBC % Seg Neutrophils # Seg Neutrophils # Man Lymphocytes # (Manual) Eosinophils # (Manual) D-Dimer ABG pH POC ABG pCO2 POC ABG pO2 ABG pO2 ABG HCO3 ABG O2 Saturation ABG Base Excess ABG Hemoglobin ABG Oxyhemoglobin ABG Sodium ABG Potassium ABG Chloride ABG Glucose Oxyhemoglobin Carboxyhemoglobin Sodium Potassium Chloride Carbon Dioxide BUN Creatinine Glucose POC Glucose 202 H 163 H 166 H Lactic Acid Calcium Ferritin AST ALT Lactate Dehydrogenase C-Reactive Protein Total Protein Albumin Triglycerides Arterial Blood Glucose Arterial Blood Ionized Calcium Urine Creatinine Urine Total Protein Vancomycin Trough Coronavirus (PCR) SARS-CoV-2 IgG Ab 07/13/20 07/13/20 07/13/20 07:20 07:20 07:20 WBC 20.5 H RBC Hgb Hct MCH MCHC Plt Count Lymph % (Auto) Lymph # (Auto) Seg Neutrophils % Seg Neuts % (Manual) 93.0 H Lymphocytes % (Manual) 3.0 L Eosinophils % (Manual) Nucleated RBC % Seg Neutrophils # Seg Neutrophils # Man 19.1 H Lymphocytes # (Manual) 0.6 L Eosinophils # (Manual) D-Dimer 826.36 H ABG pH POC ABG pCO2 POC ABG pO2 ABG pO2 ABG HCO3 ABG O2 Saturation ABG Base Excess ABG Hemoglobin ABG Oxyhemoglobin ABG Sodium ABG Potassium ABG Chloride ABG Glucose Oxyhemoglobin Carboxyhemoglobin Sodium Potassium Chloride Carbon Dioxide 31 H BUN 25 H Creatinine Glucose 163 H POC Glucose Lactic Acid Calcium 8.1 L Ferritin AST ALT Lactate Dehydrogenase 512 H C-Reactive Protein 1.80 H Total Protein 5.8 L Albumin 3.2 L Triglycerides Arterial Blood Glucose Arterial Blood Ionized Calcium Urine Creatinine Urine Total Protein Vancomycin Trough Coronavirus (PCR) SARS-CoV-2 IgG Ab 07/13/20 07/13/20 07/13/20 07:20 11:37 17:20 WBC RBC Hgb Hct MCH MCHC Plt Count Lymph % (Auto) Lymph # (Auto) Seg Neutrophils % Seg Neuts % (Manual) Lymphocytes % (Manual) Eosinophils % (Manual) Nucleated RBC % Seg Neutrophils # Seg Neutrophils # Man Lymphocytes # (Manual) Eosinophils # (Manual) D-Dimer ABG pH POC ABG pCO2 POC ABG pO2 ABG pO2 ABG HCO3 ABG O2 Saturation ABG Base Excess ABG Hemoglobin ABG Oxyhemoglobin ABG Sodium ABG Potassium ABG Chloride ABG Glucose Oxyhemoglobin Carboxyhemoglobin Sodium Potassium Chloride Carbon Dioxide BUN Creatinine Glucose POC Glucose 232 H 210 H Lactic Acid Calcium Ferritin 219.8 H AST ALT Lactate Dehydrogenase C-Reactive Protein Total Protein Albumin Triglycerides Arterial Blood Glucose Arterial Blood Ionized Calcium Urine Creatinine Urine Total Protein Vancomycin Trough Coronavirus (PCR) SARS-CoV-2 IgG Ab 07/13/20 07/13/20 07/14/20 23:57 Unknown 05:22 WBC RBC Hgb Hct MCH MCHC Plt Count Lymph % (Auto) Lymph # (Auto) Seg Neutrophils % Seg Neuts % (Manual) Lymphocytes % (Manual) Eosinophils % (Manual) Nucleated RBC % Seg Neutrophils # Seg Neutrophils # Man Lymphocytes # (Manual) Eosinophils # (Manual) D-Dimer ABG pH 7.341 L POC ABG pCO2 POC ABG pO2 133.0 H ABG pO2 56.5 L ABG HCO3 29.7 H ABG O2 Saturation 89.3 L ABG Base Excess ABG Hemoglobin 11.0 L ABG Oxyhemoglobin ABG Sodium ABG Potassium ABG Chloride ABG Glucose 207 H Oxyhemoglobin 87.7 L Carboxyhemoglobin Sodium Potassium Chloride Carbon Dioxide BUN Creatinine Glucose POC Glucose 190 H Lactic Acid Calcium Ferritin AST ALT Lactate Dehydrogenase C-Reactive Protein Total Protein Albumin Triglycerides Arterial Blood Glucose 207 H Arterial Blood Ionized Calcium 4.5 L Urine Creatinine Urine Total Protein Vancomycin Trough Coronavirus (PCR) SARS-CoV-2 IgG Ab 07/14/20 07/14/20 07/14/20 05:54 11:16 17:50 WBC RBC Hgb Hct MCH MCHC Plt Count Lymph % (Auto) Lymph # (Auto) Seg Neutrophils % Seg Neuts % (Manual) Lymphocytes % (Manual) Eosinophils % (Manual) Nucleated RBC % Seg Neutrophils # Seg Neutrophils # Man Lymphocytes # (Manual) Eosinophils # (Manual) D-Dimer ABG pH POC ABG pCO2 POC ABG pO2 ABG pO2 ABG HCO3 ABG O2 Saturation ABG Base Excess ABG Hemoglobin ABG Oxyhemoglobin ABG Sodium ABG Potassium ABG Chloride ABG Glucose Oxyhemoglobin Carboxyhemoglobin Sodium Potassium Chloride Carbon Dioxide BUN Creatinine Glucose POC Glucose 206 H 196 H 205 H Lactic Acid Calcium Ferritin AST ALT Lactate Dehydrogenase C-Reactive Protein Total Protein Albumin Triglycerides Arterial Blood Glucose Arterial Blood Ionized Calcium Urine Creatinine Urine Total Protein Vancomycin Trough Coronavirus (PCR) SARS-CoV-2 IgG Ab 07/14/20 07/15/20 07/15/20 23:28 03:16 06:12 WBC RBC Hgb Hct MCH MCHC Plt Count Lymph % (Auto) Lymph # (Auto) Seg Neutrophils % Seg Neuts % (Manual) Lymphocytes % (Manual) Eosinophils % (Manual) Nucleated RBC % Seg Neutrophils # Seg Neutrophils # Man Lymphocytes # (Manual) Eosinophils # (Manual) D-Dimer ABG pH POC ABG pCO2 49.2 H POC ABG pO2 120.3 H ABG pO2 ABG HCO3 ABG O2 Saturation ABG Base Excess ABG Hemoglobin 9.5 L ABG Oxyhemoglobin ABG Sodium ABG Potassium ABG Chloride ABG Glucose 148 H Oxyhemoglobin Carboxyhemoglobin Sodium Potassium Chloride Carbon Dioxide BUN Creatinine Glucose POC Glucose 160 H 178 H Lactic Acid Calcium Ferritin AST ALT Lactate Dehydrogenase C-Reactive Protein Total Protein Albumin Triglycerides Arterial Blood Glucose 148 H Arterial Blood Ionized Calcium Urine Creatinine Urine Total Protein Vancomycin Trough Coronavirus (PCR) SARS-CoV-2 IgG Ab 07/15/20 07/15/20 07/15/20 09:00 12:32 14:30 WBC RBC Hgb Hct MCH MCHC Plt Count Lymph % (Auto) Lymph # (Auto) Seg Neutrophils % Seg Neuts % (Manual) Lymphocytes % (Manual) Eosinophils % (Manual) Nucleated RBC % Seg Neutrophils # Seg Neutrophils # Man Lymphocytes # (Manual) Eosinophils # (Manual) D-Dimer ABG pH POC ABG pCO2 POC ABG pO2 ABG pO2 ABG HCO3 ABG O2 Saturation ABG Base Excess ABG Hemoglobin ABG Oxyhemoglobin ABG Sodium ABG Potassium ABG Chloride ABG Glucose Oxyhemoglobin Carboxyhemoglobin Sodium Potassium Chloride Carbon Dioxide BUN Creatinine Glucose POC Glucose 173 H Lactic Acid Calcium Ferritin AST ALT Lactate Dehydrogenase 531 H C-Reactive Protein Total Protein Albumin Triglycerides Arterial Blood Glucose Arterial Blood Ionized Calcium Urine Creatinine Urine Total Protein Vancomycin Trough Coronavirus (PCR) SARS-CoV-2 IgG Ab Reactive A 07/15/20 07/15/20 07/16/20 18:24 23:35 04:03 WBC RBC Hgb Hct MCH MCHC Plt Count Lymph % (Auto) Lymph # (Auto) Seg Neutrophils % Seg Neuts % (Manual) Lymphocytes % (Manual) Eosinophils % (Manual) Nucleated RBC % Seg Neutrophils # Seg Neutrophils # Man Lymphocytes # (Manual) Eosinophils # (Manual) D-Dimer ABG pH POC ABG pCO2 POC ABG pO2 ABG pO2 72.7 L ABG HCO3 35.5 H ABG O2 Saturation ABG Base Excess 9.4 H ABG Hemoglobin 10.6 L ABG Oxyhemoglobin ABG Sodium ABG Potassium ABG Chloride ABG Glucose Oxyhemoglobin 93.6 L Carboxyhemoglobin Sodium Potassium Chloride Carbon Dioxide BUN Creatinine Glucose POC Glucose 173 H 181 H Lactic Acid Calcium Ferritin AST ALT Lactate Dehydrogenase C-Reactive Protein Total Protein Albumin Triglycerides Arterial Blood Glucose Arterial Blood Ionized Calcium Urine Creatinine Urine Total Protein Vancomycin Trough Coronavirus (PCR) SARS-CoV-2 IgG Ab 07/16/20 07/16/20 07/16/20 05:35 09:00 09:00 WBC 16.5 H RBC 3.59 L Hgb Hct MCH MCHC Plt Count Lymph % (Auto) Lymph # (Auto) Seg Neutrophils % Seg Neuts % (Manual) 96.0 H Lymphocytes % (Manual) 3.0 L Eosinophils % (Manual) Nucleated RBC % Seg Neutrophils # Seg Neutrophils # Man 15.8 H Lymphocytes # (Manual) 0.5 L Eosinophils # (Manual) D-Dimer ABG pH POC ABG pCO2 POC ABG pO2 ABG pO2 ABG HCO3 ABG O2 Saturation ABG Base Excess ABG Hemoglobin ABG Oxyhemoglobin ABG Sodium ABG Potassium ABG Chloride ABG Glucose Oxyhemoglobin Carboxyhemoglobin Sodium Potassium Chloride Carbon Dioxide 39 H D BUN 25 H Creatinine 0.4 L Glucose 167 H POC Glucose 129 H Lactic Acid Calcium 8.3 L Ferritin AST ALT Lactate Dehydrogenase C-Reactive Protein Total Protein Albumin Triglycerides Arterial Blood Glucose Arterial Blood Ionized Calcium Urine Creatinine Urine Total Protein Vancomycin Trough Coronavirus (PCR) SARS-CoV-2 IgG Ab 07/16/20 07/16/20 07/17/20 12:32 18:28 00:09 WBC RBC Hgb Hct MCH MCHC Plt Count Lymph % (Auto) Lymph # (Auto) Seg Neutrophils % Seg Neuts % (Manual) Lymphocytes % (Manual) Eosinophils % (Manual) Nucleated RBC % Seg Neutrophils # Seg Neutrophils # Man Lymphocytes # (Manual) Eosinophils # (Manual) D-Dimer ABG pH POC ABG pCO2 POC ABG pO2 ABG pO2 ABG HCO3 ABG O2 Saturation ABG Base Excess ABG Hemoglobin ABG Oxyhemoglobin ABG Sodium ABG Potassium ABG Chloride ABG Glucose Oxyhemoglobin Carboxyhemoglobin Sodium Potassium Chloride Carbon Dioxide BUN Creatinine Glucose POC Glucose 187 H 174 H 184 H Lactic Acid Calcium Ferritin AST ALT Lactate Dehydrogenase C-Reactive Protein Total Protein Albumin Triglycerides Arterial Blood Glucose Arterial Blood Ionized Calcium Urine Creatinine Urine Total Protein Vancomycin Trough Coronavirus (PCR) SARS-CoV-2 IgG Ab 07/17/20 07/17/20 07/17/20 04:30 05:47 13:03 WBC RBC Hgb Hct MCH MCHC Plt Count Lymph % (Auto) Lymph # (Auto) Seg Neutrophils % Seg Neuts % (Manual) Lymphocytes % (Manual) Eosinophils % (Manual) Nucleated RBC % Seg Neutrophils # Seg Neutrophils # Man Lymphocytes # (Manual) Eosinophils # (Manual) D-Dimer ABG pH POC ABG pCO2 POC ABG pO2 ABG pO2 ABG HCO3 38.1 H ABG O2 Saturation ABG Base Excess 11.3 H ABG Hemoglobin 10.5 L ABG Oxyhemoglobin ABG Sodium ABG Potassium ABG Chloride ABG Glucose Oxyhemoglobin Carboxyhemoglobin Sodium Potassium Chloride Carbon Dioxide BUN Creatinine Glucose POC Glucose 135 H 210 H Lactic Acid Calcium Ferritin AST ALT Lactate Dehydrogenase C-Reactive Protein Total Protein Albumin Triglycerides Arterial Blood Glucose Arterial Blood Ionized Calcium Urine Creatinine Urine Total Protein Vancomycin Trough Coronavirus (PCR) SARS-CoV-2 IgG Ab 07/17/20 07/17/20 07/18/20 16:50 23:39 04:01 WBC RBC Hgb Hct MCH MCHC Plt Count Lymph % (Auto) Lymph # (Auto) Seg Neutrophils % Seg Neuts % (Manual) Lymphocytes % (Manual) Eosinophils % (Manual) Nucleated RBC % Seg Neutrophils # Seg Neutrophils # Man Lymphocytes # (Manual) Eosinophils # (Manual) D-Dimer ABG pH POC ABG pCO2 56.8 H POC ABG pO2 61.9 L ABG pO2 ABG HCO3 ABG O2 Saturation ABG Base Excess ABG Hemoglobin 11.7 L ABG Oxyhemoglobin ABG Sodium 134.2 L ABG Potassium 4.7 H ABG Chloride 97.0 L ABG Glucose 173 H Oxyhemoglobin Carboxyhemoglobin Sodium Potassium Chloride Carbon Dioxide BUN Creatinine Glucose POC Glucose 193 H 163 H Lactic Acid Calcium Ferritin AST ALT Lactate Dehydrogenase C-Reactive Protein Total Protein Albumin Triglycerides Arterial Blood Glucose 173 H Arterial Blood Ionized Calcium Urine Creatinine Urine Total Protein Vancomycin Trough Coronavirus (PCR) SARS-CoV-2 IgG Ab 07/18/20 07/18/20 07/18/20 05:41 12:03 17:26 WBC RBC Hgb Hct MCH MCHC Plt Count Lymph % (Auto) Lymph # (Auto) Seg Neutrophils % Seg Neuts % (Manual) Lymphocytes % (Manual) Eosinophils % (Manual) Nucleated RBC % Seg Neutrophils # Seg Neutrophils # Man Lymphocytes # (Manual) Eosinophils # (Manual) D-Dimer ABG pH POC ABG pCO2 POC ABG pO2 ABG pO2 ABG HCO3 ABG O2 Saturation ABG Base Excess ABG Hemoglobin ABG Oxyhemoglobin ABG Sodium ABG Potassium ABG Chloride ABG Glucose Oxyhemoglobin Carboxyhemoglobin Sodium Potassium Chloride Carbon Dioxide BUN Creatinine Glucose POC Glucose 153 H 177 H 160 H Lactic Acid Calcium Ferritin AST ALT Lactate Dehydrogenase C-Reactive Protein Total Protein Albumin Triglycerides Arterial Blood Glucose Arterial Blood Ionized Calcium Urine Creatinine Urine Total Protein Vancomycin Trough Coronavirus (PCR) SARS-CoV-2 IgG Ab 07/18/20 07/19/20 07/19/20 23:58 04:15 05:05 WBC RBC Hgb Hct MCH MCHC Plt Count Lymph % (Auto) Lymph # (Auto) Seg Neutrophils % Seg Neuts % (Manual) Lymphocytes % (Manual) Eosinophils % (Manual) Nucleated RBC % Seg Neutrophils # Seg Neutrophils # Man Lymphocytes # (Manual) Eosinophils # (Manual) D-Dimer ABG pH 7.465 H POC ABG pCO2 49.1 H POC ABG pO2 49.4 L ABG pO2 ABG HCO3 ABG O2 Saturation ABG Base Excess ABG Hemoglobin 11.6 L ABG Oxyhemoglobin ABG Sodium 132.3 L ABG Potassium ABG Chloride 97.0 L ABG Glucose 148 H Oxyhemoglobin Carboxyhemoglobin Sodium Potassium Chloride Carbon Dioxide BUN Creatinine Glucose POC Glucose 144 H 117 H Lactic Acid Calcium Ferritin AST ALT Lactate Dehydrogenase C-Reactive Protein Total Protein Albumin Triglycerides Arterial Blood Glucose 148 H Arterial Blood Ionized Calcium Urine Creatinine Urine Total Protein Vancomycin Trough Coronavirus (PCR) SARS-CoV-2 IgG Ab 07/19/20 07/19/20 07/19/20 08:30 08:30 13:21 WBC 17.2 H RBC 3.59 L Hgb Hct MCH MCHC Plt Count Lymph % (Auto) Lymph # (Auto) Seg Neutrophils % Seg Neuts % (Manual) Lymphocytes % (Manual) Eosinophils % (Manual) Nucleated RBC % Seg Neutrophils # Seg Neutrophils # Man Lymphocytes # (Manual) Eosinophils # (Manual) D-Dimer ABG pH POC ABG pCO2 POC ABG pO2 ABG pO2 ABG HCO3 ABG O2 Saturation ABG Base Excess ABG Hemoglobin ABG Oxyhemoglobin ABG Sodium ABG Potassium ABG Chloride ABG Glucose Oxyhemoglobin Carboxyhemoglobin Sodium Potassium Chloride 95.7 L Carbon Dioxide 37 H BUN 20 H Creatinine 0.4 L Glucose 125 H POC Glucose 137 H Lactic Acid Calcium 8.1 L Ferritin AST ALT Lactate Dehydrogenase C-Reactive Protein Total Protein Albumin Triglycerides Arterial Blood Glucose Arterial Blood Ionized Calcium Urine Creatinine Urine Total Protein Vancomycin Trough Coronavirus (PCR) SARS-CoV-2 IgG Ab 07/19/20 07/19/20 07/20/20 16:29 17:28 00:25 WBC RBC Hgb Hct MCH MCHC Plt Count Lymph % (Auto) Lymph # (Auto) Seg Neutrophils % Seg Neuts % (Manual) Lymphocytes % (Manual) Eosinophils % (Manual) Nucleated RBC % Seg Neutrophils # Seg Neutrophils # Man Lymphocytes # (Manual) Eosinophils # (Manual) D-Dimer ABG pH POC ABG pCO2 53.4 H POC ABG pO2 71.0 L ABG pO2 ABG HCO3 ABG O2 Saturation ABG Base Excess ABG Hemoglobin 11.2 L ABG Oxyhemoglobin 93.6 L ABG Sodium 130.9 L ABG Potassium ABG Chloride 95.0 L ABG Glucose 188 H Oxyhemoglobin Carboxyhemoglobin Sodium Potassium Chloride Carbon Dioxide BUN Creatinine Glucose POC Glucose 174 H 188 H Lactic Acid Calcium Ferritin AST ALT Lactate Dehydrogenase C-Reactive Protein Total Protein Albumin Triglycerides Arterial Blood Glucose 188 H Arterial Blood Ionized Calcium 4.4 L Urine Creatinine Urine Total Protein Vancomycin Trough Coronavirus (PCR) SARS-CoV-2 IgG Ab 07/20/20 07/20/20 07/20/20 04:14 05:23 12:12 WBC RBC Hgb Hct MCH MCHC Plt Count Lymph % (Auto) Lymph # (Auto) Seg Neutrophils % Seg Neuts % (Manual) Lymphocytes % (Manual) Eosinophils % (Manual) Nucleated RBC % Seg Neutrophils # Seg Neutrophils # Man Lymphocytes # (Manual) Eosinophils # (Manual) D-Dimer ABG pH POC ABG pCO2 52.7 H POC ABG pO2 59.5 L ABG pO2 ABG HCO3 ABG O2 Saturation ABG Base Excess ABG Hemoglobin 10.6 L ABG Oxyhemoglobin ABG Sodium 134.4 L ABG Potassium ABG Chloride ABG Glucose 176 H Oxyhemoglobin Carboxyhemoglobin Sodium Potassium Chloride Carbon Dioxide BUN Creatinine Glucose POC Glucose 212 H 190 H Lactic Acid Calcium Ferritin AST ALT Lactate Dehydrogenase C-Reactive Protein Total Protein Albumin Triglycerides Arterial Blood Glucose 176 H Arterial Blood Ionized Calcium 4.5 L Urine Creatinine Urine Total Protein Vancomycin Trough Coronavirus (PCR) SARS-CoV-2 IgG Ab 07/20/20 07/21/20 07/21/20 16:59 00:01 04:30 WBC RBC Hgb Hct MCH MCHC Plt Count Lymph % (Auto) Lymph # (Auto) Seg Neutrophils % Seg Neuts % (Manual) Lymphocytes % (Manual) Eosinophils % (Manual) Nucleated RBC % Seg Neutrophils # Seg Neutrophils # Man Lymphocytes # (Manual) Eosinophils # (Manual) D-Dimer ABG pH 7.468 H POC ABG pCO2 POC ABG pO2 63.3 L ABG pO2 ABG HCO3 ABG O2 Saturation ABG Base Excess ABG Hemoglobin 11 L ABG Oxyhemoglobin ABG Sodium 135.0 L ABG Potassium ABG Chloride ABG Glucose 204 H Oxyhemoglobin Carboxyhemoglobin Sodium Potassium Chloride Carbon Dioxide BUN Creatinine Glucose POC Glucose 201 H 177 H Lactic Acid Calcium Ferritin AST ALT Lactate Dehydrogenase C-Reactive Protein Total Protein Albumin Triglycerides Arterial Blood Glucose 204 H Arterial Blood Ionized Calcium 4.5 L Urine Creatinine Urine Total Protein Vancomycin Trough Coronavirus (PCR) SARS-CoV-2 IgG Ab 07/21/20 07/21/20 07/21/20 05:26 11:50 17:16 WBC RBC Hgb Hct MCH MCHC Plt Count Lymph % (Auto) Lymph # (Auto) Seg Neutrophils % Seg Neuts % (Manual) Lymphocytes % (Manual) Eosinophils % (Manual) Nucleated RBC % Seg Neutrophils # Seg Neutrophils # Man Lymphocytes # (Manual) Eosinophils # (Manual) D-Dimer ABG pH POC ABG pCO2 POC ABG pO2 ABG pO2 ABG HCO3 ABG O2 Saturation ABG Base Excess ABG Hemoglobin ABG Oxyhemoglobin ABG Sodium ABG Potassium ABG Chloride ABG Glucose Oxyhemoglobin Carboxyhemoglobin Sodium Potassium Chloride Carbon Dioxide BUN Creatinine Glucose POC Glucose 175 H 157 H 148 H Lactic Acid Calcium Ferritin AST ALT Lactate Dehydrogenase C-Reactive Protein Total Protein Albumin Triglycerides Arterial Blood Glucose Arterial Blood Ionized Calcium Urine Creatinine Urine Total Protein Vancomycin Trough Coronavirus (PCR) SARS-CoV-2 IgG Ab 07/22/20 07/22/20 07/22/20 00:01 03:26 05:16 WBC RBC Hgb Hct MCH MCHC Plt Count Lymph % (Auto) Lymph # (Auto) Seg Neutrophils % Seg Neuts % (Manual) Lymphocytes % (Manual) Eosinophils % (Manual) Nucleated RBC % Seg Neutrophils # Seg Neutrophils # Man Lymphocytes # (Manual) Eosinophils # (Manual) D-Dimer ABG pH POC ABG pCO2 POC ABG pO2 54.2 L ABG pO2 ABG HCO3 ABG O2 Saturation ABG Base Excess ABG Hemoglobin 10.9 L ABG Oxyhemoglobin ABG Sodium 133.7 L ABG Potassium ABG Chloride ABG Glucose 217 H Oxyhemoglobin Carboxyhemoglobin Sodium Potassium Chloride Carbon Dioxide BUN Creatinine Glucose POC Glucose 172 H 182 H Lactic Acid Calcium Ferritin AST ALT Lactate Dehydrogenase C-Reactive Protein Total Protein Albumin Triglycerides Arterial Blood Glucose 217 H Arterial Blood Ionized Calcium 4.5 L Urine Creatinine Urine Total Protein Vancomycin Trough Coronavirus (PCR) SARS-CoV-2 IgG Ab 07/22/20 07/22/20 07/23/20 11:43 17:08 04:00 WBC 11.6 H RBC 3.54 L Hgb Hct MCH MCHC Plt Count Lymph % (Auto) Lymph # (Auto) Seg Neutrophils % Seg Neuts % (Manual) 94.0 H Lymphocytes % (Manual) 5.0 L Eosinophils % (Manual) Nucleated RBC % Seg Neutrophils # Seg Neutrophils # Man 10.9 H Lymphocytes # (Manual) 0.6 L Eosinophils # (Manual) D-Dimer ABG pH POC ABG pCO2 POC ABG pO2 ABG pO2 ABG HCO3 ABG O2 Saturation ABG Base Excess ABG Hemoglobin ABG Oxyhemoglobin ABG Sodium ABG Potassium ABG Chloride ABG Glucose Oxyhemoglobin Carboxyhemoglobin Sodium Potassium Chloride Carbon Dioxide BUN Creatinine Glucose POC Glucose 159 H 163 H Lactic Acid Calcium Ferritin AST ALT Lactate Dehydrogenase C-Reactive Protein Total Protein Albumin Triglycerides Arterial Blood Glucose Arterial Blood Ionized Calcium Urine Creatinine Urine Total Protein Vancomycin Trough Coronavirus (PCR) SARS-CoV-2 IgG Ab 07/23/20 07/23/20 07/23/20 04:00 04:53 04:54 WBC RBC Hgb Hct MCH MCHC Plt Count Lymph % (Auto) Lymph # (Auto) Seg Neutrophils % Seg Neuts % (Manual) Lymphocytes % (Manual) Eosinophils % (Manual) Nucleated RBC % Seg Neutrophils # Seg Neutrophils # Man Lymphocytes # (Manual) Eosinophils # (Manual) D-Dimer ABG pH 7.453 H POC ABG pCO2 POC ABG pO2 ABG pO2 ABG HCO3 32.4 H ABG O2 Saturation ABG Base Excess 7.5 H ABG Hemoglobin 10.7 L ABG Oxyhemoglobin ABG Sodium ABG Potassium ABG Chloride ABG Glucose Oxyhemoglobin Carboxyhemoglobin Sodium Potassium Chloride Carbon Dioxide 35 H BUN Creatinine 0.4 L Glucose 112 H POC Glucose 169 H Lactic Acid Calcium 8.2 L Ferritin AST ALT Lactate Dehydrogenase C-Reactive Protein Total Protein Albumin Triglycerides Arterial Blood Glucose Arterial Blood Ionized Calcium Urine Creatinine Urine Total Protein Vancomycin Trough Coronavirus (PCR) SARS-CoV-2 IgG Ab 07/23/20 07/23/20 07/23/20 11:50 23:19 Unknown WBC RBC Hgb Hct MCH MCHC Plt Count Lymph % (Auto) Lymph # (Auto) Seg Neutrophils % Seg Neuts % (Manual) Lymphocytes % (Manual) Eosinophils % (Manual) Nucleated RBC % Seg Neutrophils # Seg Neutrophils # Man Lymphocytes # (Manual) Eosinophils # (Manual) D-Dimer ABG pH POC ABG pCO2 POC ABG pO2 ABG pO2 ABG HCO3 ABG O2 Saturation ABG Base Excess ABG Hemoglobin ABG Oxyhemoglobin ABG Sodium ABG Potassium ABG Chloride ABG Glucose Oxyhemoglobin Carboxyhemoglobin Sodium Potassium Chloride Carbon Dioxide BUN Creatinine Glucose POC Glucose 118 H 168 H Lactic Acid Calcium Ferritin AST ALT Lactate Dehydrogenase C-Reactive Protein Total Protein Albumin Triglycerides Arterial Blood Glucose Arterial Blood Ionized Calcium Urine Creatinine Urine Total Protein Vancomycin Trough Coronavirus (PCR) Positive A SARS-CoV-2 IgG Ab 07/24/20 07/24/20 07/24/20 04:11 05:37 11:42 WBC RBC Hgb Hct MCH MCHC Plt Count Lymph % (Auto) Lymph # (Auto) Seg Neutrophils % Seg Neuts % (Manual) Lymphocytes % (Manual) Eosinophils % (Manual) Nucleated RBC % Seg Neutrophils # Seg Neutrophils # Man Lymphocytes # (Manual) Eosinophils # (Manual) D-Dimer ABG pH POC ABG pCO2 POC ABG pO2 ABG pO2 54.4 L ABG HCO3 34.3 H ABG O2 Saturation 89.0 L ABG Base Excess 8.5 H ABG Hemoglobin 11.0 L ABG Oxyhemoglobin ABG Sodium ABG Potassium ABG Chloride ABG Glucose Oxyhemoglobin 87.0 L Carboxyhemoglobin Sodium Potassium Chloride Carbon Dioxide BUN Creatinine Glucose POC Glucose 115 H 166 H Lactic Acid Calcium Ferritin AST ALT Lactate Dehydrogenase C-Reactive Protein Total Protein Albumin Triglycerides Arterial Blood Glucose Arterial Blood Ionized Calcium Urine Creatinine Urine Total Protein Vancomycin Trough Coronavirus (PCR) SARS-CoV-2 IgG Ab 07/24/20 07/24/20 07/25/20 17:39 23:38 03:53 WBC RBC Hgb Hct MCH MCHC Plt Count Lymph % (Auto) Lymph # (Auto) Seg Neutrophils % Seg Neuts % (Manual) Lymphocytes % (Manual) Eosinophils % (Manual) Nucleated RBC % Seg Neutrophils # Seg Neutrophils # Man Lymphocytes # (Manual) Eosinophils # (Manual) D-Dimer ABG pH POC ABG pCO2 POC ABG pO2 ABG pO2 175.9 H ABG HCO3 34.0 H ABG O2 Saturation 99.1 H ABG Base Excess 8.2 H ABG Hemoglobin 10.6 L ABG Oxyhemoglobin ABG Sodium ABG Potassium ABG Chloride ABG Glucose Oxyhemoglobin Carboxyhemoglobin Sodium Potassium Chloride Carbon Dioxide BUN Creatinine Glucose POC Glucose 150 H 139 H Lactic Acid Calcium Ferritin AST ALT Lactate Dehydrogenase C-Reactive Protein Total Protein Albumin Triglycerides Arterial Blood Glucose Arterial Blood Ionized Calcium Urine Creatinine Urine Total Protein Vancomycin Trough Coronavirus (PCR) SARS-CoV-2 IgG Ab 07/25/20 07/25/20 07/25/20 05:47 12:09 23:46 WBC RBC Hgb Hct MCH MCHC Plt Count Lymph % (Auto) Lymph # (Auto) Seg Neutrophils % Seg Neuts % (Manual) Lymphocytes % (Manual) Eosinophils % (Manual) Nucleated RBC % Seg Neutrophils # Seg Neutrophils # Man Lymphocytes # (Manual) Eosinophils # (Manual) D-Dimer ABG pH POC ABG pCO2 POC ABG pO2 ABG pO2 ABG HCO3 ABG O2 Saturation ABG Base Excess ABG Hemoglobin ABG Oxyhemoglobin ABG Sodium ABG Potassium ABG Chloride ABG Glucose Oxyhemoglobin Carboxyhemoglobin Sodium Potassium Chloride Carbon Dioxide BUN Creatinine Glucose POC Glucose 144 H 152 H 116 H Lactic Acid Calcium Ferritin AST ALT Lactate Dehydrogenase C-Reactive Protein Total Protein Albumin Triglycerides Arterial Blood Glucose Arterial Blood Ionized Calcium Urine Creatinine Urine Total Protein Vancomycin Trough Coronavirus (PCR) SARS-CoV-2 IgG Ab 07/26/20 07/26/20 07/26/20 03:48 05:36 11:28 WBC RBC Hgb Hct MCH MCHC Plt Count Lymph % (Auto) Lymph # (Auto) Seg Neutrophils % Seg Neuts % (Manual) Lymphocytes % (Manual) Eosinophils % (Manual) Nucleated RBC % Seg Neutrophils # Seg Neutrophils # Man Lymphocytes # (Manual) Eosinophils # (Manual) D-Dimer ABG pH POC ABG pCO2 POC ABG pO2 ABG pO2 73.4 L ABG HCO3 35.0 H ABG O2 Saturation ABG Base Excess 8.3 H ABG Hemoglobin 9.8 L ABG Oxyhemoglobin ABG Sodium ABG Potassium ABG Chloride ABG Glucose Oxyhemoglobin 93.7 L Carboxyhemoglobin Sodium Potassium Chloride Carbon Dioxide BUN Creatinine Glucose POC Glucose 136 H 145 H Lactic Acid Calcium Ferritin AST ALT Lactate Dehydrogenase C-Reactive Protein Total Protein Albumin Triglycerides Arterial Blood Glucose Arterial Blood Ionized Calcium Urine Creatinine Urine Total Protein Vancomycin Trough Coronavirus (PCR) SARS-CoV-2 IgG Ab 07/26/20 07/26/20 07/26/20 14:23 17:19 23:33 WBC 12.0 H RBC 3.12 L Hgb 9.5 L Hct 28.6 L MCH MCHC Plt Count Lymph % (Auto) 4.2 L Lymph # (Auto) 0.5 L Seg Neutrophils % 89.8 H Seg Neuts % (Manual) Lymphocytes % (Manual) Eosinophils % (Manual) Nucleated RBC % Seg Neutrophils # 10.8 H Seg Neutrophils # Man Lymphocytes # (Manual) Eosinophils # (Manual) D-Dimer ABG pH POC ABG pCO2 POC ABG pO2 ABG pO2 ABG HCO3 ABG O2 Saturation ABG Base Excess ABG Hemoglobin ABG Oxyhemoglobin ABG Sodium ABG Potassium ABG Chloride ABG Glucose Oxyhemoglobin Carboxyhemoglobin Sodium Potassium Chloride Carbon Dioxide BUN Creatinine Glucose POC Glucose 202 H 122 H Lactic Acid Calcium Ferritin AST ALT Lactate Dehydrogenase C-Reactive Protein Total Protein Albumin Triglycerides Arterial Blood Glucose Arterial Blood Ionized Calcium Urine Creatinine Urine Total Protein Vancomycin Trough Coronavirus (PCR) SARS-CoV-2 IgG Ab 07/27/20 07/27/20 07/27/20 04:30 05:54 12:06 WBC RBC Hgb Hct MCH MCHC Plt Count Lymph % (Auto) Lymph # (Auto) Seg Neutrophils % Seg Neuts % (Manual) Lymphocytes % (Manual) Eosinophils % (Manual) Nucleated RBC % Seg Neutrophils # Seg Neutrophils # Man Lymphocytes # (Manual) Eosinophils # (Manual) D-Dimer ABG pH POC ABG pCO2 POC ABG pO2 ABG pO2 49.0 L ABG HCO3 35.7 H ABG O2 Saturation 87.6 L ABG Base Excess 10.1 H ABG Hemoglobin 11.5 L ABG Oxyhemoglobin ABG Sodium ABG Potassium ABG Chloride ABG Glucose Oxyhemoglobin 85.4 L Carboxyhemoglobin Sodium Potassium Chloride Carbon Dioxide BUN Creatinine Glucose POC Glucose 164 H 149 H Lactic Acid Calcium Ferritin AST ALT Lactate Dehydrogenase C-Reactive Protein Total Protein Albumin Triglycerides Arterial Blood Glucose Arterial Blood Ionized Calcium Urine Creatinine Urine Total Protein Vancomycin Trough Coronavirus (PCR) SARS-CoV-2 IgG Ab 07/27/20 07/27/20 07/27/20 13:00 14:18 14:18 WBC 12.2 H RBC 3.33 L Hgb 10.0 L Hct MCH MCHC Plt Count Lymph % (Auto) Lymph # (Auto) Seg Neutrophils % Seg Neuts % (Manual) 90.0 H Lymphocytes % (Manual) 7.0 L Eosinophils % (Manual) Nucleated RBC % Seg Neutrophils # Seg Neutrophils # Man 11.0 H Lymphocytes # (Manual) 0.9 L Eosinophils # (Manual) D-Dimer ABG pH 7.313 L POC ABG pCO2 POC ABG pO2 ABG pO2 107.5 H ABG HCO3 37.6 H ABG O2 Saturation ABG Base Excess 8.1 H ABG Hemoglobin 10.1 L ABG Oxyhemoglobin ABG Sodium ABG Potassium ABG Chloride ABG Glucose Oxyhemoglobin Carboxyhemoglobin Sodium Potassium Chloride 97.6 L Carbon Dioxide 35 H BUN 18 H Creatinine Glucose 135 H POC Glucose Lactic Acid Calcium 8.3 L Ferritin AST ALT Lactate Dehydrogenase C-Reactive Protein Total Protein Albumin Triglycerides Arterial Blood Glucose Arterial Blood Ionized Calcium Urine Creatinine Urine Total Protein Vancomycin Trough Coronavirus (PCR) SARS-CoV-2 IgG Ab 07/27/20 07/27/20 07/28/20 17:09 23:14 04:15 WBC RBC Hgb Hct MCH MCHC Plt Count Lymph % (Auto) Lymph # (Auto) Seg Neutrophils % Seg Neuts % (Manual) Lymphocytes % (Manual) Eosinophils % (Manual) Nucleated RBC % Seg Neutrophils # Seg Neutrophils # Man Lymphocytes # (Manual) Eosinophils # (Manual) D-Dimer ABG pH 7.317 L POC ABG pCO2 POC ABG pO2 ABG pO2 130.3 H ABG HCO3 40.9 H ABG O2 Saturation ABG Base Excess 13.5 H ABG Hemoglobin 5.8 L ABG Oxyhemoglobin ABG Sodium ABG Potassium ABG Chloride ABG Glucose Oxyhemoglobin Carboxyhemoglobin Sodium Potassium Chloride Carbon Dioxide BUN Creatinine Glucose POC Glucose 115 H 139 H Lactic Acid Calcium Ferritin AST ALT Lactate Dehydrogenase C-Reactive Protein Total Protein Albumin Triglycerides Arterial Blood Glucose Arterial Blood Ionized Calcium Urine Creatinine Urine Total Protein Vancomycin Trough Coronavirus (PCR) SARS-CoV-2 IgG Ab 07/28/20 07/28/20 07/28/20 05:34 09:20 09:20 WBC RBC 2.89 L Hgb 9.5 L Hct 26.6 L MCH 33 H MCHC 36 H Plt Count 123 L Lymph % (Auto) Lymph # (Auto) Seg Neutrophils % Seg Neuts % (Manual) 89.0 H Lymphocytes % (Manual) 5.0 L Eosinophils % (Manual) Nucleated RBC % Seg Neutrophils # Seg Neutrophils # Man 8.6 H Lymphocytes # (Manual) 0.5 L Eosinophils # (Manual) D-Dimer ABG pH POC ABG pCO2 POC ABG pO2 ABG pO2 ABG HCO3 ABG O2 Saturation ABG Base Excess ABG Hemoglobin ABG Oxyhemoglobin ABG Sodium ABG Potassium ABG Chloride ABG Glucose Oxyhemoglobin Carboxyhemoglobin Sodium 134 L Potassium Chloride 95.6 L Carbon Dioxide 39 H BUN Creatinine 0.3 L Glucose 131 H POC Glucose 130 H Lactic Acid Calcium 7.9 L Ferritin AST ALT Lactate Dehydrogenase C-Reactive Protein Total Protein Albumin Triglycerides Arterial Blood Glucose Arterial Blood Ionized Calcium Urine Creatinine Urine Total Protein Vancomycin Trough Coronavirus (PCR) SARS-CoV-2 IgG Ab 07/28/20 07/28/20 07/28/20 11:50 18:36 23:22 WBC RBC Hgb Hct MCH MCHC Plt Count Lymph % (Auto) Lymph # (Auto) Seg Neutrophils % Seg Neuts % (Manual) Lymphocytes % (Manual) Eosinophils % (Manual) Nucleated RBC % Seg Neutrophils # Seg Neutrophils # Man Lymphocytes # (Manual) Eosinophils # (Manual) D-Dimer ABG pH POC ABG pCO2 POC ABG pO2 ABG pO2 ABG HCO3 ABG O2 Saturation ABG Base Excess ABG Hemoglobin ABG Oxyhemoglobin ABG Sodium ABG Potassium ABG Chloride ABG Glucose Oxyhemoglobin Carboxyhemoglobin Sodium Potassium Chloride Carbon Dioxide BUN Creatinine Glucose POC Glucose 128 H 119 H 122 H Lactic Acid Calcium Ferritin AST ALT Lactate Dehydrogenase C-Reactive Protein Total Protein Albumin Triglycerides Arterial Blood Glucose Arterial Blood Ionized Calcium Urine Creatinine Urine Total Protein Vancomycin Trough Coronavirus (PCR) SARS-CoV-2 IgG Ab 07/29/20 07/29/20 07/29/20 03:18 07:54 07:54 WBC 11.1 H RBC 3.49 L Hgb Hct MCH MCHC Plt Count 139 L Lymph % (Auto) Lymph # (Auto) Seg Neutrophils % Seg Neuts % (Manual) 90.0 H Lymphocytes % (Manual) 1.0 L Eosinophils % (Manual) 5.0 H Nucleated RBC % Seg Neutrophils # Seg Neutrophils # Man 10.0 H Lymphocytes # (Manual) 0.1 L Eosinophils # (Manual) 0.6 H D-Dimer ABG pH POC ABG pCO2 69.5 H POC ABG pO2 109.3 H ABG pO2 ABG HCO3 ABG O2 Saturation ABG Base Excess ABG Hemoglobin 10.8 L ABG Oxyhemoglobin ABG Sodium ABG Potassium ABG Chloride 95.0 L ABG Glucose 138 H Oxyhemoglobin Carboxyhemoglobin Sodium Potassium Chloride 94.5 L Carbon Dioxide 40 H BUN Creatinine 0.5 L D Glucose 104 H POC Glucose Lactic Acid Calcium Ferritin AST ALT Lactate Dehydrogenase C-Reactive Protein Total Protein Albumin Triglycerides Arterial Blood Glucose 138 H Arterial Blood Ionized Calcium Urine Creatinine Urine Total Protein Vancomycin Trough Coronavirus (PCR) SARS-CoV-2 IgG Ab 07/29/20 07/29/20 07/29/20 11:05 18:17 19:41 WBC RBC Hgb Hct MCH MCHC Plt Count Lymph % (Auto) Lymph # (Auto) Seg Neutrophils % Seg Neuts % (Manual) Lymphocytes % (Manual) Eosinophils % (Manual) Nucleated RBC % Seg Neutrophils # Seg Neutrophils # Man Lymphocytes # (Manual) Eosinophils # (Manual) D-Dimer ABG pH 7.305 L POC ABG pCO2 73.3 H 66.7 H POC ABG pO2 28.2 L 32.7 L ABG pO2 ABG HCO3 ABG O2 Saturation ABG Base Excess ABG Hemoglobin 11.8 L 11.5 L ABG Oxyhemoglobin ABG Sodium ABG Potassium ABG Chloride 94.0 L 95.0 L ABG Glucose 207 H 141 H Oxyhemoglobin Carboxyhemoglobin Sodium Potassium Chloride Carbon Dioxide BUN Creatinine Glucose POC Glucose 113 H Lactic Acid Calcium Ferritin AST ALT Lactate Dehydrogenase C-Reactive Protein Total Protein Albumin Triglycerides Arterial Blood Glucose 207 H 141 H Arterial Blood Ionized Calcium 4.5 L Urine Creatinine Urine Total Protein Vancomycin Trough Coronavirus (PCR) SARS-CoV-2 IgG Ab 07/29/20 07/30/20 07/30/20 23:28 04:47 05:28 WBC RBC Hgb Hct MCH MCHC Plt Count Lymph % (Auto) Lymph # (Auto) Seg Neutrophils % Seg Neuts % (Manual) Lymphocytes % (Manual) Eosinophils % (Manual) Nucleated RBC % Seg Neutrophils # Seg Neutrophils # Man Lymphocytes # (Manual) Eosinophils # (Manual) D-Dimer ABG pH POC ABG pCO2 55.1 H POC ABG pO2 43.6 L ABG pO2 ABG HCO3 ABG O2 Saturation ABG Base Excess ABG Hemoglobin 11.9 L ABG Oxyhemoglobin ABG Sodium ABG Potassium ABG Chloride 96.0 L ABG Glucose 150 H Oxyhemoglobin Carboxyhemoglobin Sodium Potassium Chloride Carbon Dioxide BUN Creatinine Glucose POC Glucose 121 H 143 H Lactic Acid Calcium Ferritin AST ALT Lactate Dehydrogenase C-Reactive Protein Total Protein Albumin Triglycerides Arterial Blood Glucose 150 H Arterial Blood Ionized Calcium Urine Creatinine Urine Total Protein Vancomycin Trough Coronavirus (PCR) SARS-CoV-2 IgG Ab 07/30/20 07/30/20 07/30/20 08:18 12:00 14:17 WBC RBC Hgb Hct MCH MCHC Plt Count Lymph % (Auto) Lymph # (Auto) Seg Neutrophils % Seg Neuts % (Manual) Lymphocytes % (Manual) Eosinophils % (Manual) Nucleated RBC % Seg Neutrophils # Seg Neutrophils # Man Lymphocytes # (Manual) Eosinophils # (Manual) D-Dimer ABG pH POC ABG pCO2 63.3 H 64.6 H POC ABG pO2 47.9 L 41.0 L ABG pO2 ABG HCO3 ABG O2 Saturation ABG Base Excess ABG Hemoglobin 10.5 L 10.2 L ABG Oxyhemoglobin 84.9 L ABG Sodium ABG Potassium ABG Chloride 97.0 L ABG Glucose 170 H 175 H Oxyhemoglobin Carboxyhemoglobin Sodium Potassium Chloride Carbon Dioxide BUN Creatinine Glucose POC Glucose 161 H Lactic Acid Calcium Ferritin AST ALT Lactate Dehydrogenase C-Reactive Protein Total Protein Albumin Triglycerides Arterial Blood Glucose 170 H 175 H Arterial Blood Ionized Calcium 4.4 L 4.4 L Urine Creatinine Urine Total Protein Vancomycin Trough Coronavirus (PCR) SARS-CoV-2 IgG Ab 07/30/20 07/30/20 07/30/20 15:15 15:15 15:15 WBC RBC 2.80 L Hgb 9.1 L Hct 26.0 L D MCH MCHC 35 H Plt Count 101 L Lymph % (Auto) Lymph # (Auto) Seg Neutrophils % Seg Neuts % (Manual) 90.0 H Lymphocytes % (Manual) 7.0 L Eosinophils % (Manual) Nucleated RBC % Seg Neutrophils # Seg Neutrophils # Man Lymphocytes # (Manual) 0.4 L Eosinophils # (Manual) D-Dimer ABG pH POC ABG pCO2 POC ABG pO2 ABG pO2 ABG HCO3 ABG O2 Saturation ABG Base Excess ABG Hemoglobin ABG Oxyhemoglobin ABG Sodium ABG Potassium ABG Chloride ABG Glucose Oxyhemoglobin Carboxyhemoglobin Sodium Potassium Chloride 97.1 L Carbon Dioxide 32 H D BUN 39 H Creatinine 1.3 H D Glucose 167 H POC Glucose Lactic Acid Calcium 8.0 L Ferritin AST ALT Lactate Dehydrogenase C-Reactive Protein Total Protein Albumin Triglycerides 837 H Arterial Blood Glucose Arterial Blood Ionized Calcium Urine Creatinine Urine Total Protein Vancomycin Trough Coronavirus (PCR) SARS-CoV-2 IgG Ab 07/30/20 07/30/20 07/30/20 15:15 17:03 17:43 WBC RBC Hgb Hct MCH MCHC Plt Count Lymph % (Auto) Lymph # (Auto) Seg Neutrophils % Seg Neuts % (Manual) Lymphocytes % (Manual) Eosinophils % (Manual) Nucleated RBC % Seg Neutrophils # Seg Neutrophils # Man Lymphocytes # (Manual) Eosinophils # (Manual) D-Dimer ABG pH POC ABG pCO2 POC ABG pO2 ABG pO2 ABG HCO3 ABG O2 Saturation ABG Base Excess ABG Hemoglobin ABG Oxyhemoglobin ABG Sodium ABG Potassium ABG Chloride ABG Glucose Oxyhemoglobin Carboxyhemoglobin Sodium Potassium Chloride Carbon Dioxide BUN Creatinine Glucose POC Glucose 171 H Lactic Acid 2.20 H* 3.60 H* Calcium Ferritin AST ALT Lactate Dehydrogenase C-Reactive Protein Total Protein Albumin Triglycerides Arterial Blood Glucose Arterial Blood Ionized Calcium Urine Creatinine Urine Total Protein Vancomycin Trough Coronavirus (PCR) SARS-CoV-2 IgG Ab 07/30/20 07/30/20 07/31/20 20:13 23:37 04:15 WBC RBC Hgb Hct MCH MCHC Plt Count Lymph % (Auto) Lymph # (Auto) Seg Neutrophils % Seg Neuts % (Manual) Lymphocytes % (Manual) Eosinophils % (Manual) Nucleated RBC % Seg Neutrophils # Seg Neutrophils # Man Lymphocytes # (Manual) Eosinophils # (Manual) D-Dimer ABG pH 7.544 H 7.489 H POC ABG pCO2 POC ABG pO2 44.4 L 50.0 L ABG pO2 ABG HCO3 ABG O2 Saturation ABG Base Excess ABG Hemoglobin 10.4 L ABG Oxyhemoglobin ABG Sodium 135.3 L ABG Potassium ABG Chloride ABG Glucose 201 H 199 H Oxyhemoglobin Carboxyhemoglobin Sodium Potassium Chloride Carbon Dioxide BUN Creatinine Glucose POC Glucose 160 H Lactic Acid Calcium Ferritin AST ALT Lactate Dehydrogenase C-Reactive Protein Total Protein Albumin Triglycerides Arterial Blood Glucose 201 H 199 H Arterial Blood Ionized Calcium 4.2 L 4.4 L Urine Creatinine Urine Total Protein Vancomycin Trough Coronavirus (PCR) SARS-CoV-2 IgG Ab 07/31/20 07/31/20 07/31/20 05:16 05:16 05:28 WBC RBC 3.03 L Hgb 9.2 L Hct 27.6 L MCH MCHC Plt Count 118 L Lymph % (Auto) 6.3 L Lymph # (Auto) 0.5 L Seg Neutrophils % Seg Neuts % (Manual) Lymphocytes % (Manual) Eosinophils % (Manual) Nucleated RBC % Seg Neutrophils # Seg Neutrophils # Man Lymphocytes # (Manual) Eosinophils # (Manual) D-Dimer ABG pH POC ABG pCO2 POC ABG pO2 ABG pO2 ABG HCO3 ABG O2 Saturation ABG Base Excess ABG Hemoglobin ABG Oxyhemoglobin ABG Sodium ABG Potassium ABG Chloride ABG Glucose Oxyhemoglobin Carboxyhemoglobin Sodium Potassium Chloride Carbon Dioxide BUN 57 H Creatinine 1.7 H Glucose 208 H POC Glucose 182 H Lactic Acid Calcium 8.3 L Ferritin AST 613 H ALT 760 H Lactate Dehydrogenase C-Reactive Protein Total Protein 5.6 L Albumin 2.2 L Triglycerides Arterial Blood Glucose Arterial Blood Ionized Calcium Urine Creatinine Urine Total Protein Vancomycin Trough Coronavirus (PCR) SARS-CoV-2 IgG Ab 07/31/20 07/31/20 07/31/20 11:02 14:14 14:14 WBC RBC Hgb Hct MCH MCHC Plt Count Lymph % (Auto) Lymph # (Auto) Seg Neutrophils % Seg Neuts % (Manual) Lymphocytes % (Manual) Eosinophils % (Manual) Nucleated RBC % Seg Neutrophils # Seg Neutrophils # Man Lymphocytes # (Manual) Eosinophils # (Manual) D-Dimer 2522.40 H ABG pH POC ABG pCO2 POC ABG pO2 ABG pO2 ABG HCO3 ABG O2 Saturation ABG Base Excess ABG Hemoglobin ABG Oxyhemoglobin ABG Sodium ABG Potassium ABG Chloride ABG Glucose Oxyhemoglobin Carboxyhemoglobin Sodium Potassium Chloride Carbon Dioxide BUN Creatinine Glucose POC Glucose 200 H Lactic Acid Calcium Ferritin 964.8 H AST ALT Lactate Dehydrogenase C-Reactive Protein Total Protein Albumin Triglycerides Arterial Blood Glucose Arterial Blood Ionized Calcium Urine Creatinine Urine Total Protein Vancomycin Trough Coronavirus (PCR) SARS-CoV-2 IgG Ab 07/31/20 07/31/20 07/31/20 14:14 14:14 16:00 WBC RBC Hgb Hct MCH MCHC Plt Count Lymph % (Auto) Lymph # (Auto) Seg Neutrophils % Seg Neuts % (Manual) Lymphocytes % (Manual) Eosinophils % (Manual) Nucleated RBC % Seg Neutrophils # Seg Neutrophils # Man Lymphocytes # (Manual) Eosinophils # (Manual) D-Dimer ABG pH POC ABG pCO2 POC ABG pO2 ABG pO2 ABG HCO3 ABG O2 Saturation ABG Base Excess ABG Hemoglobin ABG Oxyhemoglobin ABG Sodium ABG Potassium ABG Chloride ABG Glucose Oxyhemoglobin Carboxyhemoglobin Sodium Potassium Chloride Carbon Dioxide BUN Creatinine Glucose POC Glucose Lactic Acid Calcium Ferritin AST ALT Lactate Dehydrogenase 585 H C-Reactive Protein 49.00 H Total Protein Albumin Triglycerides Arterial Blood Glucose Arterial Blood Ionized Calcium Urine Creatinine 89.2 H Urine Total Protein 108 H Vancomycin Trough 28.2 H Coronavirus (PCR) SARS-CoV-2 IgG Ab 07/31/20 07/31/20 08/01/20 17:22 21:26 00:07 WBC RBC Hgb Hct MCH MCHC Plt Count Lymph % (Auto) Lymph # (Auto) Seg Neutrophils % Seg Neuts % (Manual) Lymphocytes % (Manual) Eosinophils % (Manual) Nucleated RBC % Seg Neutrophils # Seg Neutrophils # Man Lymphocytes # (Manual) Eosinophils # (Manual) D-Dimer ABG pH POC ABG pCO2 POC ABG pO2 156.0 H ABG pO2 ABG HCO3 ABG O2 Saturation ABG Base Excess ABG Hemoglobin 9.6 L ABG Oxyhemoglobin 98.4 H ABG Sodium 135.9 L ABG Potassium ABG Chloride ABG Glucose 290 H Oxyhemoglobin Carboxyhemoglobin 0.4 L Sodium Potassium Chloride Carbon Dioxide BUN Creatinine Glucose POC Glucose 229 H 255 H Lactic Acid Calcium Ferritin AST ALT Lactate Dehydrogenase C-Reactive Protein Total Protein Albumin Triglycerides Arterial Blood Glucose 290 H Arterial Blood Ionized Calcium 4.5 L Urine Creatinine Urine Total Protein Vancomycin Trough Coronavirus (PCR) SARS-CoV-2 IgG Ab 08/01/20 08/01/20 08/01/20 04:46 05:30 05:30 WBC RBC 2.27 L Hgb 7.6 L Hct 20.9 L D MCH 34 H MCHC 37 H Plt Count 85 L Lymph % (Auto) Lymph # (Auto) Seg Neutrophils % Seg Neuts % (Manual) 87.0 H Lymphocytes % (Manual) 2.0 L Eosinophils % (Manual) Nucleated RBC % 1.0 H Seg Neutrophils # Seg Neutrophils # Man Lymphocytes # (Manual) 0.1 L Eosinophils # (Manual) D-Dimer ABG pH 7.462 H POC ABG pCO2 POC ABG pO2 70.2 L ABG pO2 ABG HCO3 ABG O2 Saturation ABG Base Excess ABG Hemoglobin 8.7 L ABG Oxyhemoglobin ABG Sodium 135.7 L ABG Potassium 3.3 L ABG Chloride ABG Glucose 275 H Oxyhemoglobin Carboxyhemoglobin Sodium 132 L D Potassium 2.8 L* D Chloride Carbon Dioxide BUN 47 H Creatinine Glucose 217 H POC Glucose Lactic Acid Calcium 6.6 L D Ferritin AST 117 H ALT 408 H Lactate Dehydrogenase C-Reactive Protein Total Protein 4.3 L D Albumin 0.6 L Triglycerides 2335 H Arterial Blood Glucose 275 H Arterial Blood Ionized Calcium 4.5 L Urine Creatinine Urine Total Protein Vancomycin Trough Coronavirus (PCR) SARS-CoV-2 IgG Ab 08/01/20 08/01/20 08/01/20 05:34 09:33 11:50 WBC RBC Hgb Hct MCH MCHC Plt Count Lymph % (Auto) Lymph # (Auto) Seg Neutrophils % Seg Neuts % (Manual) Lymphocytes % (Manual) Eosinophils % (Manual) Nucleated RBC % Seg Neutrophils # Seg Neutrophils # Man Lymphocytes # (Manual) Eosinophils # (Manual) D-Dimer ABG pH POC ABG pCO2 POC ABG pO2 ABG pO2 ABG HCO3 ABG O2 Saturation ABG Base Excess ABG Hemoglobin ABG Oxyhemoglobin ABG Sodium ABG Potassium ABG Chloride ABG Glucose Oxyhemoglobin Carboxyhemoglobin Sodium Potassium Chloride Carbon Dioxide BUN 57 H Creatinine Glucose 250 H POC Glucose 246 H 239 H Lactic Acid Calcium 8.2 L D Ferritin AST ALT Lactate Dehydrogenase C-Reactive Protein Total Protein Albumin Triglycerides 759 H Arterial Blood Glucose Arterial Blood Ionized Calcium Urine Creatinine Urine Total Protein Vancomycin Trough Coronavirus (PCR) SARS-CoV-2 IgG Ab Chest x-ray: pending Allied health notes reviewed: nursing
--- NOTE | 2020-08-01 15:50 | XRay Report ---
CHEST 1 VIEW 08/01/2020 2:44 PM INDICATION / CLINICAL INFORMATION: pneumothorax; chest tube. COMPARISON: Previous day. FINDINGS: SUPPORT DEVICES: Unchanged. HEART / MEDIASTINUM: No significant abnormality. LUNGS / PLEURA: Persistent bilateral opacity. Small right apical pneumothorax remains slight enlargem ent. Increasing subcutaneous air. Bilateral opacity is overall improved. ADDITIONAL FINDINGS: No significant additional findings. IMPRESSION: 1. Slight enlargement of right-sided pneumothorax. Right subcutaneous air has increased. 2. Bilateral opacity mildly improved. Signer Name: Neil Benoit MD Signed: 08/01/2020 3:46 PM Workstation Name: [id number]
[2020-08-01] MEDS: INSULIN GLARGINE 100 UNITS/ML SUB-Q SCH (17:47)
[2020-08-02] MEDS: INSULIN REGULAR, HUMAN 100 UNIT/ML 3ML VIAL SUB-Q SCH ×4 (00:30→17:06)
[2020-08-02] MEDS: fentaNYL DRIP Premix 2,000 MCG/100 ML BAG IV SCH ×5 (01:36→22:20)
[2020-08-02] MEDS: MIDAZOLAM 100 MG in SODIUM CHLORIDE 0.9% 80 ML IV SCH ×2 (03:37→16:51)
[2020-08-02] MEDS: GABAPENTIN 300 MG CAP PO SCH ×3 (05:27→21:05)
[2020-08-02] MEDS: chlordiazePOXIDE 25 MG CAP PO SCH ×3 (05:27→21:05)
[2020-08-02] MEDS: methylPREDNISolone Sod Succinate 40 MG/1 ML INJ IV SCH ×3 (05:28→21:05)
[2020-08-02 07:38] LABS: Alanine Aminotransferase 334 units/L (7-56); Albumin 1.9 g/dL (3.9-5); BUN/Creatinine Ratio 59; Blood Urea Nitrogen 53 mg/dL (7-17); Calcium 8.1 mg/dL (8.4-10.2); Hemolysis Index 42
[2020-08-02] MEDS: PHENYLEPHRINE 100 MG in SODIUM CHLORIDE 0.9% 90 ML IV SCH (07:53)
[2020-08-02] MEDS: VASOPRESSIN 20 UNIT in SODIUM CHLORIDE 0.9% 100 ML IV SCH ×2 (07:54→19:31)
[2020-08-02 08:01] LABS: Hematocrit 31.5 % (30.3-42.9); Mean Corpuscular HGB Conc 32 % (30-34); Mean Corpuscular Volume 93 fl (79-97); Platelet Count 87 K/mm3 (140-440); Red Cell Distribution Width 16.2 % (13.2-15.2)
[2020-08-02 09:09] LABS: Band Neutrophils # (Manual) 0.7 K/mm3; Basophils % (Manual) 0 % (0.0-1.8); Eosinophils % (Manual) 0 % (0.0-4.3); Hypochromasia Few; Myelocytes # (Manual) 0.8 K/mm3; Platelet Estimate Consistent w Auto; Total Cells Counted 100
[2020-08-02] MEDS: BUDESONIDE 0.5 MG/2 ML NEBU IH SCH ×2 (09:47→20:15)
[2020-08-02] MEDS: IPRATROPIUM/ALBUTEROL SULFATE 3 ML AMPUL.NEB IH SCH ×3 (09:47→20:15)
[2020-08-02] MEDS: ARFORMOTEROL 15 MCG/2 ML NEBU IH SCH ×2 (09:47→20:15)
[2020-08-02] MEDS: SODIUM CHLORIDE 0.9% 1000 ML 1,000 ML IV SCH (10:30)
[2020-08-02] MEDS: VANCOMYCIN 1,500 MG in SODIUM CHLORIDE 0.9% 500 ML 500 ML IV SCH ×2 (10:31→21:06)
[2020-08-02] MEDS: cefTRIAXone/NS 2 GM/100 ML 2 GM/100 ML BAG IV SCH (10:35)
[2020-08-02] MEDS: VENLAFAXINE 37.5 MG TAB PO SCH (10:42)
[2020-08-02] MEDS: ENOXAPARIN 30 MG/0.3 ML INJ SUB-Q SCH ×2 (10:42→21:06)
[2020-08-02] MEDS: LANSOPRAZOLE 30 MG SOLUTAB FEEDTUBE SCH (10:42)
[2020-08-02] MEDS: QUEtiapine 100 MG TAB PO SCH ×2 (10:42→21:05)
[2020-08-02] MEDS: QUEtiapine 200 MG TAB PO SCH ×2 (10:42→21:05)
[2020-08-02] MEDS: HYDROXYCHLOROQUINE 200 MG TAB PO SCH (10:42)
[2020-08-02] MEDS: ASCORBIC ACID 500 MG TAB PO SCH ×2 (10:42→21:05)
[2020-08-02] MEDS: POLYETHYLENE GLYCOL 3350 17 GM POWDER PO SCH (10:42)
[2020-08-02] MEDS: DOCUSATE SODIUM 100 MG/10 ML ORAL LIQD PO SCH ×2 (10:42→21:05)
[2020-08-02] MEDS: ZINC SULFATE 220 MG CAP PO SCH ×2 (10:42→21:05)
[2020-08-02] MEDS: ASPIRIN 81 MG TAB CHEW PO SCH (10:42)
[2020-08-02] MEDS: METOCLOPRAMIDE 10 MG/2 ML INJ IV SCH ×3 (10:43→21:04)
--- NOTE | 2020-08-02 13:16 | Progress Note ---
Assessment and Plan - Patient Problems (1) Acute tubular necrosis Current Visit: Yes Status: Acute Plan to address problem: MAHOGANY most likely secondary to acute tubular necrosis in the setting of pneumonia/sepsis and hypotension. BP and renal function improved with IVF resuscitation, pt with good urine output. cont supportive care for MAHOGANY/ATN maintain MAP > 65mmHg , avoid nephrotoxins, NSADIs, IV contrast. no further renal recommendations at present, will sign off for now. please call with any questions (2) COVID-19 Current Visit: Yes Status: Acute Plan to address problem: On IV steroid, s/p Remdesivir for 5 days and convalescent plasma transfusion. follow Ferritin, LDH, d-dimer level, follow ID recommendations (3) Acute respiratory failure Current Visit: No Status: Acute Qualifiers: Respiratory failure complication: unspecified whether with hypoxia or hypercapnia Qualified Code(s): J96.00 - Acute respiratory failure, unspecified whether with hypoxia or hypercapnia Plan to address problem: on ventilator support, management as per ICU team (4) Anemia in chronic illness Current Visit: Yes Status: Acute Plan to address problem: monitor serial Hb, PRBC transfusion prn for Hb < 7 (5) SLE (systemic lupus erythematosus related syndrome) Current Visit: No Status: Chronic Plan to address problem: on plaquenil (6) Hyperkalemia Current Visit: Yes Status: Acute Plan to address problem: mild, ordered Kayexalate 30g x 1 dose. cont 2g K renal diet Subjective Date of service: 08/02/20 Principal diagnosis: Ac hypoxemic resp failure; PNA; COVID-19 infxn; SLE; Asthma exacerbation Interval history: Pt remains intubated, physical exam deferred due to PPE perservation and to minimize risk of transmission Objective - Exam Narrative Exam: physical exam deferred due to PPE perservation and to minimize risk of transmission - Vital Signs Vital signs: Vital Signs - 12hr 08/02/20 08/02/20 08/02/20 01:15 01:31 01:45 Temperature Pulse Rate 77 78 78 Pulse Rate [ Apical] Pulse Rate [ Bilateral Throughout] Pulse Rate [ From Monitor] Respiratory 30 H 30 H 30 H Rate Respiratory Rate [Bilateral Throughout] Blood Pressure 111/54 110/52 118/53 O2 Sat by Pulse 94 95 94 Oximetry 08/02/20 08/02/20 08/02/20 02:01 02:15 02:31 Temperature Pulse Rate 78 79 80 Pulse Rate [ Apical] Pulse Rate [ Bilateral Throughout] Pulse Rate [ From Monitor] Respiratory 30 H 30 H 30 H Rate Respiratory Rate [Bilateral Throughout] Blood Pressure 109/53 110/54 114/53 O2 Sat by Pulse 94 95 94 Oximetry 08/02/20 08/02/20 08/02/20 02:45 03:01 03:15 Temperature Pulse Rate 79 78 79 Pulse Rate [ Apical] Pulse Rate [ Bilateral Throughout] Pulse Rate [ From Monitor] Respiratory 30 H 30 H 30 H Rate Respiratory Rate [Bilateral Throughout] Blood Pressure 113/52 110/53 109/51 O2 Sat by Pulse 95 95 95 Oximetry 08/02/20 08/02/20 08/02/20 03:31 03:33 03:45 Temperature 99.8 F H Pulse Rate 78 79 Pulse Rate [ Apical] Pulse Rate [ Bilateral Throughout] Pulse Rate [ From Monitor] Respiratory 30 H 30 H Rate Respiratory Rate [Bilateral Throughout] Blood Pressure 110/54 112/52 O2 Sat by Pulse 95 95 Oximetry 08/02/20 08/02/20 08/02/20 04:00 04:01 04:15 Temperature Pulse Rate 79 78 79 Pulse Rate [ Apical] Pulse Rate [ Bilateral Throughout] Pulse Rate [ 78 From Monitor] Respiratory 30 H 30 H 30 H Rate Respiratory Rate [Bilateral Throughout] Blood Pressure 110/54 126/59 O2 Sat by Pulse 95 95 96 Oximetry 08/02/20 08/02/20 08/02/20 04:31 04:45 05:01 Temperature Pulse Rate 74 79 76 Pulse Rate [ Apical] Pulse Rate [ Bilateral Throughout] Pulse Rate [ From Monitor] Respiratory 30 H 30 H 30 H Rate Respiratory Rate [Bilateral Throughout] Blood Pressure 112/52 108/55 110/61 O2 Sat by Pulse 96 95 96 Oximetry 08/02/20 08/02/20 08/02/20 05:15 05:31 05:45 Temperature Pulse Rate 76 74 77 Pulse Rate [ Apical] Pulse Rate [ Bilateral Throughout] Pulse Rate [ From Monitor] Respiratory 30 H 30 H 30 H Rate Respiratory Rate [Bilateral Throughout] Blood Pressure 112/60 110/60 110/58 O2 Sat by Pulse 96 96 95 Oximetry 08/02/20 08/02/20 08/02/20 06:01 06:15 06:31 Temperature Pulse Rate 76 77 74 Pulse Rate [ Apical] Pulse Rate [ Bilateral Throughout] Pulse Rate [ From Monitor] Respiratory 30 H 30 H 30 H Rate Respiratory Rate [Bilateral Throughout] Blood Pressure 111/59 111/60 114/64 O2 Sat by Pulse 96 96 96 Oximetry 08/02/20 08/02/20 08/02/20 06:45 07:01 07:15 Temperature Pulse Rate 73 72 72 Pulse Rate [ Apical] Pulse Rate [ Bilateral Throughout] Pulse Rate [ From Monitor] Respiratory 30 H 30 H 30 H Rate Respiratory Rate [Bilateral Throughout] Blood Pressure 117/68 120/68 119/67 O2 Sat by Pulse 94 96 96 Oximetry 08/02/20 08/02/20 08/02/20 07:31 07:45 08:00 Temperature 98.0 F Pulse Rate 72 71 74 Pulse Rate [ 74 Apical] Pulse Rate [ Bilateral Throughout] Pulse Rate [ 74 From Monitor] Respiratory 30 H 30 H 30 H Rate Respiratory Rate [Bilateral Throughout] Blood Pressure 120/67 123/71 O2 Sat by Pulse 95 96 94 Oximetry 08/02/20 08/02/20 08/02/20 08:01 08:15 08:31 Temperature Pulse Rate 75 75 72 Pulse Rate [ Apical] Pulse Rate [ Bilateral Throughout] Pulse Rate [ From Monitor] Respiratory 30 H 30 H 30 H Rate Respiratory Rate [Bilateral Throughout] Blood Pressure 125/69 103/50 107/55 O2 Sat by Pulse 95 94 96 Oximetry 08/02/20 08/02/20 08/02/20 08:45 09:01 09:15 Temperature Pulse Rate 71 69 69 Pulse Rate [ Apical] Pulse Rate [ Bilateral Throughout] Pulse Rate [ From Monitor] Respiratory 30 H 30 H 30 H Rate Respiratory Rate [Bilateral Throughout] Blood Pressure 108/55 113/58 113/59 O2 Sat by Pulse 97 97 97 Oximetry 08/02/20 08/02/20 08/02/20 09:31 09:44 09:45 Temperature Pulse Rate 67 67 65 Pulse Rate [ Apical] Pulse Rate [ Bilateral Throughout] Pulse Rate [ From Monitor] Respiratory 30 H 30 H Rate Respiratory Rate [Bilateral Throughout] Blood Pressure 117/62 126/70 126/70 O2 Sat by Pulse 97 98 99 Oximetry 08/02/20 08/02/20 08/02/20 09:47 10:01 10:15 Temperature Pulse Rate 68 69 Pulse Rate [ Apical] Pulse Rate [ 68 Bilateral Throughout] Pulse Rate [ From Monitor] Respiratory 30 H 30 H Rate Respiratory 30 H Rate [Bilateral Throughout] Blood Pressure 122/68 120/66 O2 Sat by Pulse 97 97 Oximetry 08/02/20 08/02/20 08/02/20 10:31 10:45 11:01 Temperature Pulse Rate 69 59 L 67 Pulse Rate [ Apical] Pulse Rate [ Bilateral Throughout] Pulse Rate [ From Monitor] Respiratory 30 H 30 H 30 H Rate Respiratory Rate [Bilateral Throughout] Blood Pressure 120/65 208/96 144/81 O2 Sat by Pulse 96 96 96 Oximetry 08/02/20 08/02/20 08/02/20 11:15 11:31 11:45 Temperature Pulse Rate 80 79 78 Pulse Rate [ Apical] Pulse Rate [ Bilateral Throughout] Pulse Rate [ From Monitor] Respiratory 30 H 30 H 30 H Rate Respiratory Rate [Bilateral Throughout] Blood Pressure 96/44 95/43 97/47 O2 Sat by Pulse 91 91 92 Oximetry 08/02/20 08/02/20 08/02/20 12:00 12:01 12:15 Temperature Pulse Rate 72 76 75 Pulse Rate [ 72 Apical] Pulse Rate [ Bilateral Throughout] Pulse Rate [ 72 From Monitor] Respiratory 30 H 30 H 30 H Rate Respiratory Rate [Bilateral Throughout] Blood Pressure 101/51 104/53 O2 Sat by Pulse 96 94 95 Oximetry 08/02/20 08/02/20 08/02/20 12:31 12:37 12:45 Temperature Pulse Rate 73 73 72 Pulse Rate [ Apical] Pulse Rate [ Bilateral Throughout] Pulse Rate [ From Monitor] Respiratory 30 H 30 H Rate Respiratory Rate [Bilateral Throughout] Blood Pressure 109/55 109/55 112/60 O2 Sat by Pulse 96 96 96 Oximetry 08/02/20 13:00 Temperature Pulse Rate 71 Pulse Rate [ Apical] Pulse Rate [ Bilateral Throughout] Pulse Rate [ From Monitor] Respiratory 29 H Rate Respiratory Rate [Bilateral Throughout] Blood Pressure 117/61 O2 Sat by Pulse 96 Oximetry - Lab 08/02/20 06:37 08/02/20 06:37 Most recent lab results ABG pH 7.268 (7.320-7.450) L 08/02/20 04:22 ABG pCO2 81.7 mm Hg 07/28/20 04:15 ABG pO2 130.3 mm Hg (80.0-90.0) H 07/28/20 04:15 ABG HCO3 40.9 mmol/L (20.0-26.0) H 07/28/20 04:15 ABG O2 Saturation 98.1 % (95.0-99.0) 07/28/20 04:15 Calcium 8.1 mg/dL (8.4-10.2) L 08/02/20 06:37 Phosphorus 3.20 mg/dL (2.5-4.5) 07/08/20 16:13 Magnesium 2.20 mg/dL (1.7-2.3) 07/08/20 16:13 Urine Creatinine 89.2 mg/dL (0.1-20.0) H 07/31/20 16:00 Urine Sodium 26 mmol/L 07/31/20 16:00 Urine Total Protein 108 mg/dL (5-11.8) H 07/31/20 16:00 Medications & Allergies - Medications Allergies/Adverse Reactions: Allergies bee venom protein (honey bee) Allergy (Verified 07/10/18 16:39) Shortness of Breath iv contrast Allergy (Uncoded 07/10/18 16:36) Hives Home Medications: Home Medications Medication Instructions Recorded Confirmed Last Taken Type ALBUTEROL Inhaler(NF) [VENTOLIN 1 puff IH Q4HR PRN #1 inha 07/10/18 07/06/20 06/27/20 Rx Inhaler(NF)] atenoloL [Tenormin] 50 mg PO DAILY 12/28/18 07/06/20 06/27/20 History Aspirin [Aspirin BABY CHEW TAB] 81 mg PO QDAY #30 tab.chew 12/30/18 07/06/20 06/27/20 Rx Hydroxychloroquine [Plaquenil] 200 mg PO QDAY 30 Days tablet 12/30/18 07/06/20 06/27/20 Rx Pantoprazole [Protonix TAB] 40 mg PO DAILY #30 tablet 05/04/19 07/06/20 10/06/19 Rx Gabapentin [Gralise] 600 mg PO QDAY 10/09/19 07/06/20 06/27/20 History Venlafaxine [Effexor 25mg tab] 37.5 mg PO QDAY 10/09/19 07/06/20 06/27/20 History ALPRAZolam [Xanax TAB] 2 mg PO Q12HR 06/28/20 07/06/20 06/27/20 History Budesonide/Formoterol Fumarate 10.2 gm IH BID 30 Days hfa.aer.ad 07/01/20 07/06/20 Unknown Rx [Symbicort 160-4.5 Mcg Inhaler] Montelukast [Singulair] 10 mg PO QHS 30 Days tablet 07/01/20 07/06/20 Unknown Rx Prednisone [predniSONE 5 mg (6-Day 5 mg PO .TAPER #1 tab.ds.pk 07/01/20 07/06/20 Unknown Rx Pack, 21 Tabs)] levoFLOXacin [Levaquin] 750 mg PO QDAY #3 tablet 07/01/20 07/06/20 Unknown Rx Active Medications: Generic Name Dose Route Start Last Admin Trade Name Freq PRN Reason Stop Dose Admin Acetaminophen 650 mg 07/06/20 13:39 07/27/20 18:34 Tylenol PO 650 mg Q4H PRN Administration Pain MILD(1-3)/Fever >100.5/WILLETT Albuterol/Ipratropium 1 ampul 07/26/20 14:00 08/02/20 09:47 Duoneb *Not For Prn Use* IH Not Given TIDRT ROMMEL Alprazolam 0.5 mg 07/07/20 12:28 07/27/20 03:15 Xanax PO 0.5 mg Q8H PRN Administration Anxiety Lipase/Protease/Amylase 1 each 07/08/20 14:50 Pancremaria del rosario Price 10,500 Unit FEEDTUBE PRN PRN For Clogged Feeding Tube Arformoterol Tartrate 15 mcg 07/07/20 09:15 08/02/20 09:47 Brovana Nebu IH 15 mcg Q12HRT ROMMEL Administration Ascorbic Acid 500 mg 07/08/20 22:00 08/02/20 10:42 Vitamin C PO 500 mg BID ROMMEL Administration Aspirin 81 mg 07/06/20 14:00 08/02/20 10:42 Baby Aspirin PO 81 mg QDAY ROMMEL Administration Budesonide 0.5 mg 07/07/20 09:15 08/02/20 09:47 Pulmicort IH 0.5 mg Q12HRT ROMMEL Administration Chlordiazepoxide HCl 75 mg 07/30/20 13:00 08/02/20 12:58 Librium PO 75 mg Q8H ROMMEL Administration Dextrose 50 ml 07/12/20 16:58 D50w (25gm) Syringe IV Q30MIN PRN Hypoglycemia Protocol Docusate Sodium 100 mg 07/16/20 22:00 08/02/20 10:42 Colace PO 100 mg BID ROMMEL Administration Enoxaparin Sodium 30 mg 07/06/20 15:00 08/02/20 10:42 Enoxaparin SUB-Q 30 mg BID ROMMEL Administration Protocol Fentanyl 50 mcg 07/08/20 13:16 07/29/20 15:45 Sublimaze IV 50 mcg Q10MIN PRN Administration ANALGESIA Gabapentin 600 mg 07/25/20 14:00 08/02/20 13:01 Gabapentin PO 600 mg Q8HR ROMMEL Administration Hydrophilic Ointment 1 applic 07/08/20 13:16 07/22/20 23:01 Vaseline Lip Therapy TP 1 applic Q2HR PRN Administration Dry Lips Hydroxychloroquine Sulfate 200 mg 07/07/20 10:00 08/02/20 10:42 Plaquenil PO 200 mg QDAY ROMMEL Administration Fentanyl Citrate 2,000 mcg in 100 mls @ 4.825 mls/hr 07/08/20 14:00 08/02/20 12:18 Fentanyl Drip Premix IV 4 mcg/kg/hr TITR ROMMEL 19.3 mls/hr Administration Protocol 1 MCG/KG/HR Midazolam HCl 100 mg/ Sodium 100 mls @ 2 mls/hr 07/08/20 15:00 08/02/20 03:37 Chloride IV 8 mg/hr TITR ROMMEL 8 mls/hr Administration Protocol 2 MG/HR Sodium Chloride 500 mls @ 10 mls/hr 07/15/20 15:00 Nacl 0.9% 500 Ml IV DIRECT ROMMEL Norepinephrine 4 mg in 250 mls @ 7.5 mls/hr 07/27/20 05:00 Levophed Drip 4 Mg/Ns 250 Ml IV TITR ROMMEL Protocol 2 MCG/MIN Vasopressin 20 unit/ Sodium 101 mls @ 9.09 mls/hr 07/30/20 13:00 08/02/20 07:54 Chloride IV 0.03 units/min TITR ROMMEL 9.09 mls/hr Administration Protocol 0.03 UNITS/MIN Phenylephrine HCl 100 mg/ 100 mls @ 3 mls/hr 07/30/20 15:00 08/02/20 07:53 Sodium Chloride IV 60 mcg/min TITR ROMMEL 3.6 mls/hr Administration Protocol 50 MCG/MIN Sodium Chloride 1,000 mls @ 75 mls/hr 07/31/20 08:30 08/02/20 10:30 Nacl 0.9% 1000 Ml IV 75 mls/hr DIRECT ROMMEL Administration Propofol 1,000 mg in 100 mls @ 2.946 mls/hr 07/31/20 20:00 08/02/20 10:38 Diprivan 10 Mg/Ml IV 50 mcg/kg/min DIRECT ROMMEL 29.46 mls/hr Administration Protocol 5 MCG/KG/MIN Dopamine HCl/Dextrose 800 mg in 250 mls @ 3.679 mls/hr 07/31/20 22:00 Intropin Drip 800 Mg/D5w 250 Ml IV TITR ROMMEL Protocol 2 MCG/KG/MIN Ceftriaxone Sodium 2 gm in 100 mls @ 200 mls/hr 08/02/20 10:00 08/02/20 10:35 Rocephin/Ns 2 Gm/100 Ml IV 200 mls/hr Q24HR ROMMEL Administration Protocol Vancomycin HCl 1,500 mg/ 530 mls @ 333.333 mls/hr 08/02/20 10:00 08/02/20 10:31 Sodium Chloride IV 333.333 mls/hr Q12HR ROMMEL Administration Insulin Glargine 5 units 07/12/20 17:00 08/01/20 17:47 Lantus SUB-Q 5 units Q24H ROMMEL Administration Insulin Human Regular 0 unit 08/01/20 00:00 08/02/20 12:57 Humulin R SUB-Q 4 unit Q6HR ROMMEL Administration Protocol Lansoprazole 30 mg 07/10/20 10:00 08/02/20 10:42 Prevacid Solutab FEEDTUBE 30 mg QDAY ROMMEL Administration Methylprednisolone Sodium Succinate 40 mg 07/22/20 14:00 08/02/20 13:01 Solu-Medrol IV 40 mg Q8H ROMMEL Administration Metoclopramide HCl 10 mg 08/02/20 09:00 08/02/20 10:43 Reglan IV 08/03/20 03:01 10 mg Q6H ROMMEL Administration Multi-Ingred Cream/Lotion/Oil/Oint 1 applic 07/08/20 13:16 Artificial Tears Ophth Oint OU Q4HR PRN Dry Eye(s) Ondansetron HCl 4 mg 07/06/20 13:39 07/08/20 10:44 Zofran IV 4 mg Q8H PRN Administration Nausea And Vomiting Polyethylene Glycol 17 gm 07/29/20 12:00 08/02/20 10:42 Miralax 3350 PO 17 gm DAILY ROMMEL Administration Pseudoephedrine/Acetam/Chlorphenir 10 ml 07/07/20 01:17 07/08/20 08:30 Robitussin Ac PO 10 ml Q4H PRN Administration Cough Quetiapine Fumarate 200 mg 07/25/20 22:00 08/02/20 10:42 Seroquel PO 200 mg BID ROMMEL Administration Quetiapine Fumarate 100 mg 07/25/20 22:00 08/02/20 10:42 Seroquel PO 100 mg BID ROMMEL Administration Simple Syrup 15 ml 07/08/20 14:50 Simple Syrup FEEDTUBE PRN PRN Hypoglycemia Simple Syrup 30 ml 07/08/20 14:50 Simple Syrup FEEDTUBE PRN PRN Hypoglycemia Sodium Bicarbonate 325 mg 07/08/20 14:50 Sodium Bicarbonate FEEDTUBE PRN PRN For Clogged Feeding Tube Sodium Chloride 10 ml 07/06/20 14:00 08/02/20 10:53 Sodium Chloride Flush Syringe 10 Ml IV 10 ml BID ROMMEL Administration Sodium Chloride 10 ml 07/06/20 13:39 07/26/20 06:31 Sodium Chloride Flush Syringe 10 Ml IV 10 ml PRN PRN Administration LINE FLUSH Venlafaxine HCl 37.5 mg 07/07/20 10:00 08/02/20 10:42 Effexor PO 37.5 mg DAILY ROMMEL Administration Zinc Sulfate 220 mg 07/08/20 22:00 08/02/20 10:42 Zinc Sulfate PO 220 mg BID ROMMEL Administration
[2020-08-02] MEDS ORDERED: SODIUM POLYSTYRENE 15 GM/60 ML ORAL LIQD PO SCH (14:00)
--- NOTE | 2020-08-02 15:28 | Progress Note ---
Assessment and Plan Acute hypoxemic respiratory failure, now on MVS Bilateral pneumonia, left greater than right lungs. COVID-19 infection. History of congestive heart failure. History of lupus erythematosus. Leukocytosis. Tobacco use disorder. Acute asthma exacerbation. History of hypertension. Obesity - repeat BMP in 24-48 hours +/- gentle hydration (Keep on dry side re: non- cardiogenic pulmonary edema) - continue current vent settings - RN s/p chest tube care - continue sedation and target RASS -2 to -3 acutely - keep chest tube to continuous wall suction - repeat ABG in am - growing E. Coli & MRSA from tracheal aspirate; continue and de-escalate AB's per ID recommendations - prognosis grave to guarded especially neurologic-rai - continue care as below otherwise; - wean Vasopressors for target MAP > 65 mmHg - continue Librium - repeat COVID-19 test is positive - continue systemic steroids - continue to wean supplemental oxygen for target O2 sat's > 92% - continue low dose SSI - continue Seroquel 300 mg p.o. bid - continue airborne and contact isolation - continue Zinc & Vit C supplementaion - complete Remdesivir - de-escalate AB's per ID rec's - continue systemic steroids for Asthma / severe COVID infection - continue Daily SAT and SBT assessment as tolerated - VAP bundle addressed - continue lung protective strategies - continue bronchodilators with pulmonary hygiene per RT - wean per pulmonary driven protocols otherwise - accuchecks with glycemic control per SSI (While critically ill target blood glucose of 140-180 mg/dL; avoid hypoglycemia) - sedation prn for target RASS -1 to -2 - avoid nephrotoxins, renally dose all medications - continue to avoid benzodiazepine's, reduce the possibility of delirium - prn analgesia per CPOT score - Maintenance of sleep-wake cycle, avoid delirium - continue enteral nutritional support at goal rate as tolerated - G.I. & VTE prophylaxis - PT/OT/ROM exercises - continue mobility protocols for pressure ulcer prophylaxis - Monitor hemodynamics closely - continue other care per attending / other consultants - discharge planning ongoing concurrently .... Re-evaluate in am & prn CONDITION: CRITICAL PROGNOSIS: GUARDED CODE STATUS: FULL CODE The high probability of a clinically significant, sudden or life-threatening deterioration of the [respiratory, cardiovascular & neurologic] system(s) required my full and direct attention, intervention and personal management. The aggregate critical care time was [34] minutes without overlap. Time includes spent on; [x] Data Review and interpretation [x] Patient assessment and monitoring of vital signs [x] Documentation [x] Medication orders and management Subjective Date of service: 08/02/20 Principal diagnosis: Ac hypoxemic resp failure; PNA; COVID-19 infxn; SLE; Asthma exacerbation Interval history: Patient is seen today for: Acute hypoxemic respiratory failure; Bilateral pneumonia; COVID-19 infection; H/O CHF; SLE; Acute asthma exacerbation. HTN; Obesity Seen and examined at bedside; 24hour events reviewed; nursing and respiratory care staff consulted; no adverse overnight events reported to me; resting peacefully in bed; remains on MVS; FiO2 at 80%; O2 sats just 92%; sedated; no emesis or overt aspiration Objective Vital Signs - 12hr 08/02/20 08/02/20 08/02/20 03:31 03:33 03:45 Temperature 99.8 F H Pulse Rate 78 79 Pulse Rate [ Apical] Pulse Rate [ Bilateral Throughout] Pulse Rate [ From Monitor] Respiratory 30 H 30 H Rate Respiratory Rate [Bilateral Throughout] Blood Pressure 110/54 112/52 O2 Sat by Pulse 95 95 Oximetry 08/02/20 08/02/20 08/02/20 04:00 04:01 04:15 Temperature Pulse Rate 79 78 79 Pulse Rate [ Apical] Pulse Rate [ Bilateral Throughout] Pulse Rate [ 78 From Monitor] Respiratory 30 H 30 H 30 H Rate Respiratory Rate [Bilateral Throughout] Blood Pressure 110/54 126/59 O2 Sat by Pulse 95 95 96 Oximetry 08/02/20 08/02/20 08/02/20 04:31 04:45 05:01 Temperature Pulse Rate 74 79 76 Pulse Rate [ Apical] Pulse Rate [ Bilateral Throughout] Pulse Rate [ From Monitor] Respiratory 30 H 30 H 30 H Rate Respiratory Rate [Bilateral Throughout] Blood Pressure 112/52 108/55 110/61 O2 Sat by Pulse 96 95 96 Oximetry 08/02/20 08/02/20 08/02/20 05:15 05:31 05:45 Temperature Pulse Rate 76 74 77 Pulse Rate [ Apical] Pulse Rate [ Bilateral Throughout] Pulse Rate [ From Monitor] Respiratory 30 H 30 H 30 H Rate Respiratory Rate [Bilateral Throughout] Blood Pressure 112/60 110/60 110/58 O2 Sat by Pulse 96 96 95 Oximetry 12/12/1708/02/20 08/02/20 06:01 06:15 06:31 Temperature Pulse Rate 76 77 74 Pulse Rate [ Apical] Pulse Rate [ Bilateral Throughout] Pulse Rate [ From Monitor] Respiratory 30 H 30 H 30 H Rate Respiratory Rate [Bilateral Throughout] Blood Pressure 111/59 111/60 114/64 O2 Sat by Pulse 96 96 96 Oximetry 08/02/20 08/02/20 08/02/20 06:45 07:01 07:15 Temperature Pulse Rate 73 72 72 Pulse Rate [ Apical] Pulse Rate [ Bilateral Throughout] Pulse Rate [ From Monitor] Respiratory 30 H 30 H 30 H Rate Respiratory Rate [Bilateral Throughout] Blood Pressure 117/68 120/68 119/67 O2 Sat by Pulse 94 96 96 Oximetry 08/02/20 08/02/20 08/02/20 07:31 07:45 08:00 Temperature 98.0 F Pulse Rate 72 71 74 Pulse Rate [ 74 Apical] Pulse Rate [ Bilateral Throughout] Pulse Rate [ 74 From Monitor] Respiratory 30 H 30 H 30 H Rate Respiratory Rate [Bilateral Throughout] Blood Pressure 120/67 123/71 O2 Sat by Pulse 95 96 94 Oximetry 08/02/20 08/02/20 08/02/20 08:01 08:15 08:31 Temperature Pulse Rate 75 75 72 Pulse Rate [ Apical] Pulse Rate [ Bilateral Throughout] Pulse Rate [ From Monitor] Respiratory 30 H 30 H 30 H Rate Respiratory Rate [Bilateral Throughout] Blood Pressure 125/69 103/50 107/55 O2 Sat by Pulse 95 94 96 Oximetry 08/02/20 08/02/20 08/02/20 08:45 09:01 09:15 Temperature Pulse Rate 71 69 69 Pulse Rate [ Apical] Pulse Rate [ Bilateral Throughout] Pulse Rate [ From Monitor] Respiratory 30 H 30 H 30 H Rate Respiratory Rate [Bilateral Throughout] Blood Pressure 108/55 113/58 113/59 O2 Sat by Pulse 97 97 97 Oximetry 08/02/20 08/02/20 08/02/20 09:31 09:44 09:45 Temperature Pulse Rate 67 67 65 Pulse Rate [ Apical] Pulse Rate [ Bilateral Throughout] Pulse Rate [ From Monitor] Respiratory 30 H 30 H Rate Respiratory Rate [Bilateral Throughout] Blood Pressure 117/62 126/70 126/70 O2 Sat by Pulse 97 98 99 Oximetry 08/02/20 08/02/20 08/02/20 09:47 10:01 10:15 Temperature Pulse Rate 68 69 Pulse Rate [ Apical] Pulse Rate [ 68 Bilateral Throughout] Pulse Rate [ From Monitor] Respiratory 30 H 30 H Rate Respiratory 30 H Rate [Bilateral Throughout] Blood Pressure 122/68 120/66 O2 Sat by Pulse 97 97 Oximetry 08/02/20 08/02/20 08/02/20 10:31 10:45 11:01 Temperature Pulse Rate 69 59 L 67 Pulse Rate [ Apical] Pulse Rate [ Bilateral Throughout] Pulse Rate [ From Monitor] Respiratory 30 H 30 H 30 H Rate Respiratory Rate [Bilateral Throughout] Blood Pressure 120/65 208/96 144/81 O2 Sat by Pulse 96 96 96 Oximetry 08/02/20 08/02/20 08/02/20 11:15 11:31 11:45 Temperature Pulse Rate 80 79 78 Pulse Rate [ Apical] Pulse Rate [ Bilateral Throughout] Pulse Rate [ From Monitor] Respiratory 30 H 30 H 30 H Rate Respiratory Rate [Bilateral Throughout] Blood Pressure 96/44 95/43 97/47 O2 Sat by Pulse 91 91 92 Oximetry 08/02/20 08/02/20 08/02/20 12:00 12:01 12:15 Temperature Pulse Rate 72 76 75 Pulse Rate [ 72 Apical] Pulse Rate [ Bilateral Throughout] Pulse Rate [ 72 From Monitor] Respiratory 30 H 30 H 30 H Rate Respiratory Rate [Bilateral Throughout] Blood Pressure 101/51 104/53 O2 Sat by Pulse 96 94 95 Oximetry 08/02/20 08/02/20 08/02/20 12:31 12:37 12:45 Temperature Pulse Rate 73 73 72 Pulse Rate [ Apical] Pulse Rate [ Bilateral Throughout] Pulse Rate [ From Monitor] Respiratory 30 H 30 H Rate Respiratory Rate [Bilateral Throughout] Blood Pressure 109/55 109/55 112/60 O2 Sat by Pulse 96 96 96 Oximetry 08/02/20 13:00 Temperature Pulse Rate 71 Pulse Rate [ Apical] Pulse Rate [ Bilateral Throughout] Pulse Rate [ From Monitor] Respiratory 29 H Rate Respiratory Rate [Bilateral Throughout] Blood Pressure 117/61 O2 Sat by Pulse 96 Oximetry Constitutional: appears uncomfortable, other (middle aged obese female with mildly increased respiratory effort at rest on MVS) Eyes: non-icteric ENT: oropharynx moist, other (ETT 23cm YANET) Neck: supple, no lymphadenopathy, no JVD Effort: mildly labored Ascultation: Bilateral: diminished breath sounds, rhonchi Percussion: Bilateral: not dull Cardiovascular: regular rate and rhythm, other (S1,S2) Gastrointestinal: normoactive bowel sounds, soft, non-tender, non-distended Integumentary: normal Extremities: no cyanosis, no edema, pulses normal, no ischemia or petechiae Neurologic: pupils equal and round, other (sedated) Psychiatric: other (unable to assess re: AMS / sedation) CBC and BMP: 08/02/20 06:37 08/02/20 06:37 ABG, PT/INR, D-dimer: ABG ABG pH 7.268 (7.320-7.450) L 08/02/20 04:22 POC ABG pCO2 56.6 mmHg (32.0-48.0) H 08/02/20 04:22 ABG pCO2 81.7 mm Hg 07/28/20 04:15 POC ABG pO2 84.4 mmHg (83-108) 08/02/20 04:22 ABG pO2 130.3 mm Hg (80.0-90.0) H 07/28/20 04:15 POC ABG HCO3 25.3 08/02/20 04:22 ABG O2 Saturation 98.1 % (95.0-99.0) 07/28/20 04:15 PT/INR, D-dimer D-Dimer 2522.40 ng/mlDDU (0-234) H 07/31/20 14:14 Abnormal lab findings: Abnormal Labs 07/06/20 07/06/20 07/07/20 05:24 17:16 04:50 WBC 13.5 H 12.7 H RBC Hgb Hct MCH MCHC RDW Plt Count Lymph % (Auto) Lymph # (Auto) Seg Neutrophils % Seg Neuts % (Manual) 86.0 H 87.0 H Lymphocytes % (Manual) 6.0 L 9.0 L Eosinophils % (Manual) Nucleated RBC % Seg Neutrophils # Seg Neutrophils # Man 11.6 H 11.0 H Lymphocytes # (Manual) 0.8 L 1.1 L Eosinophils # (Manual) D-Dimer ABG pH POC ABG pCO2 POC ABG pO2 ABG pO2 ABG HCO3 ABG O2 Saturation ABG Base Excess ABG Hemoglobin ABG Oxyhemoglobin ABG Sodium ABG Potassium ABG Chloride ABG Glucose Oxyhemoglobin Carboxyhemoglobin Sodium Potassium Chloride Carbon Dioxide BUN Creatinine Glucose POC Glucose Lactic Acid Calcium Ferritin AST ALT Lactate Dehydrogenase 242 H C-Reactive Protein 7.30 H Total Protein Albumin Triglycerides Arterial Blood Glucose Arterial Blood Ionized Calcium Urine Creatinine Urine Total Protein Vancomycin Trough Coronavirus (PCR) SARS-CoV-2 IgG Ab 07/07/20 07/07/20 07/07/20 04:50 14:22 14:22 WBC RBC Hgb Hct MCH MCHC RDW Plt Count Lymph % (Auto) Lymph # (Auto) Seg Neutrophils % Seg Neuts % (Manual) Lymphocytes % (Manual) Eosinophils % (Manual) Nucleated RBC % Seg Neutrophils # Seg Neutrophils # Man Lymphocytes # (Manual) Eosinophils # (Manual) D-Dimer ABG pH POC ABG pCO2 POC ABG pO2 ABG pO2 ABG HCO3 ABG O2 Saturation ABG Base Excess ABG Hemoglobin ABG Oxyhemoglobin ABG Sodium ABG Potassium ABG Chloride ABG Glucose Oxyhemoglobin Carboxyhemoglobin Sodium Potassium Chloride Carbon Dioxide BUN 18 H Creatinine Glucose 138 H POC Glucose Lactic Acid Calcium Ferritin 228.2 H AST ALT Lactate Dehydrogenase 277 H C-Reactive Protein Total Protein 5.9 L Albumin 3.4 L Triglycerides Arterial Blood Glucose Arterial Blood Ionized Calcium Urine Creatinine Urine Total Protein Vancomycin Trough Coronavirus (PCR) SARS-CoV-2 IgG Ab 07/08/20 07/08/20 07/08/20 11:18 12:57 16:13 WBC RBC Hgb Hct MCH MCHC RDW Plt Count Lymph % (Auto) Lymph # (Auto) Seg Neutrophils % Seg Neuts % (Manual) Lymphocytes % (Manual) Eosinophils % (Manual) Nucleated RBC % Seg Neutrophils # Seg Neutrophils # Man Lymphocytes # (Manual) Eosinophils # (Manual) D-Dimer ABG pH POC ABG pCO2 POC ABG pO2 ABG pO2 39.3 L* ABG HCO3 ABG O2 Saturation 76.8 L ABG Base Excess ABG Hemoglobin ABG Oxyhemoglobin ABG Sodium ABG Potassium ABG Chloride ABG Glucose Oxyhemoglobin 75.3 L Carboxyhemoglobin Sodium Potassium Chloride Carbon Dioxide 20 L D BUN Creatinine Glucose 135 H POC Glucose 106 H Lactic Acid Calcium 8.0 L Ferritin AST ALT Lactate Dehydrogenase C-Reactive Protein Total Protein Albumin Triglycerides Arterial Blood Glucose Arterial Blood Ionized Calcium Urine Creatinine Urine Total Protein Vancomycin Trough Coronavirus (PCR) SARS-CoV-2 IgG Ab 07/08/20 07/08/20 07/09/20 17:04 18:45 04:00 WBC 15.6 H RBC Hgb Hct MCH MCHC RDW Plt Count Lymph % (Auto) 4.7 L Lymph # (Auto) 0.7 L Seg Neutrophils % Seg Neuts % (Manual) Lymphocytes % (Manual) Eosinophils % (Manual) Nucleated RBC % Seg Neutrophils # 14.2 H Seg Neutrophils # Man Lymphocytes # (Manual) Eosinophils # (Manual) D-Dimer ABG pH POC ABG pCO2 POC ABG pO2 ABG pO2 181.8 H ABG HCO3 ABG O2 Saturation 99.1 H ABG Base Excess ABG Hemoglobin 11.4 L ABG Oxyhemoglobin ABG Sodium ABG Potassium ABG Chloride ABG Glucose Oxyhemoglobin Carboxyhemoglobin Sodium Potassium Chloride Carbon Dioxide BUN Creatinine Glucose POC Glucose 117 H Lactic Acid Calcium Ferritin AST ALT Lactate Dehydrogenase C-Reactive Protein Total Protein Albumin Triglycerides Arterial Blood Glucose Arterial Blood Ionized Calcium Urine Creatinine Urine Total Protein Vancomycin Trough Coronavirus (PCR) SARS-CoV-2 IgG Ab 07/09/20 07/09/20 07/09/20 04:00 04:00 04:49 WBC RBC Hgb Hct MCH MCHC RDW Plt Count Lymph % (Auto) Lymph # (Auto) Seg Neutrophils % Seg Neuts % (Manual) Lymphocytes % (Manual) Eosinophils % (Manual) Nucleated RBC % Seg Neutrophils # Seg Neutrophils # Man Lymphocytes # (Manual) Eosinophils # (Manual) D-Dimer ABG pH POC ABG pCO2 POC ABG pO2 ABG pO2 ABG HCO3 26.2 H ABG O2 Saturation ABG Base Excess ABG Hemoglobin 11.2 L ABG Oxyhemoglobin ABG Sodium ABG Potassium ABG Chloride ABG Glucose Oxyhemoglobin 94.9 L Carboxyhemoglobin Sodium Potassium Chloride Carbon Dioxide BUN Creatinine Glucose 158 H POC Glucose Lactic Acid Calcium 8.2 L Ferritin 320.0 H AST ALT Lactate Dehydrogenase 391 H C-Reactive Protein 9.50 H Total Protein 5.9 L Albumin 3.2 L Triglycerides Arterial Blood Glucose Arterial Blood Ionized Calcium Urine Creatinine Urine Total Protein Vancomycin Trough Coronavirus (PCR) SARS-CoV-2 IgG Ab 07/09/20 07/09/20 07/09/20 11:56 17:49 23:39 WBC RBC Hgb Hct MCH MCHC RDW Plt Count Lymph % (Auto) Lymph # (Auto) Seg Neutrophils % Seg Neuts % (Manual) Lymphocytes % (Manual) Eosinophils % (Manual) Nucleated RBC % Seg Neutrophils # Seg Neutrophils # Man Lymphocytes # (Manual) Eosinophils # (Manual) D-Dimer ABG pH POC ABG pCO2 POC ABG pO2 ABG pO2 ABG HCO3 ABG O2 Saturation ABG Base Excess ABG Hemoglobin ABG Oxyhemoglobin ABG Sodium ABG Potassium ABG Chloride ABG Glucose Oxyhemoglobin Carboxyhemoglobin Sodium Potassium Chloride Carbon Dioxide BUN Creatinine Glucose POC Glucose 156 H 119 H 145 H Lactic Acid Calcium Ferritin AST ALT Lactate Dehydrogenase C-Reactive Protein Total Protein Albumin Triglycerides Arterial Blood Glucose Arterial Blood Ionized Calcium Urine Creatinine Urine Total Protein Vancomycin Trough Coronavirus (PCR) SARS-CoV-2 IgG Ab 07/10/20 07/10/20 07/10/20 03:32 05:26 11:22 WBC RBC Hgb Hct MCH MCHC RDW Plt Count Lymph % (Auto) Lymph # (Auto) Seg Neutrophils % Seg Neuts % (Manual) Lymphocytes % (Manual) Eosinophils % (Manual) Nucleated RBC % Seg Neutrophils # Seg Neutrophils # Man Lymphocytes # (Manual) Eosinophils # (Manual) D-Dimer ABG pH POC ABG pCO2 POC ABG pO2 ABG pO2 75.7 L ABG HCO3 27.5 H ABG O2 Saturation ABG Base Excess ABG Hemoglobin 9.3 L ABG Oxyhemoglobin ABG Sodium ABG Potassium ABG Chloride ABG Glucose Oxyhemoglobin 94.7 L Carboxyhemoglobin Sodium Potassium Chloride Carbon Dioxide BUN Creatinine Glucose POC Glucose 156 H 148 H Lactic Acid Calcium Ferritin AST ALT Lactate Dehydrogenase C-Reactive Protein Total Protein Albumin Triglycerides Arterial Blood Glucose Arterial Blood Ionized Calcium Urine Creatinine Urine Total Protein Vancomycin Trough Coronavirus (PCR) SARS-CoV-2 IgG Ab 07/10/20 07/10/20 07/10/20 12:10 12:10 18:20 WBC 14.1 H RBC 3.33 L Hgb 9.9 L Hct MCH MCHC RDW Plt Count Lymph % (Auto) Lymph # (Auto) Seg Neutrophils % Seg Neuts % (Manual) 89.0 H Lymphocytes % (Manual) 8.0 L Eosinophils % (Manual) Nucleated RBC % Seg Neutrophils # Seg Neutrophils # Man 12.5 H Lymphocytes # (Manual) 1.1 L Eosinophils # (Manual) D-Dimer ABG pH POC ABG pCO2 POC ABG pO2 ABG pO2 ABG HCO3 ABG O2 Saturation ABG Base Excess ABG Hemoglobin ABG Oxyhemoglobin ABG Sodium ABG Potassium ABG Chloride ABG Glucose Oxyhemoglobin Carboxyhemoglobin Sodium Potassium Chloride Carbon Dioxide BUN 21 H Creatinine Glucose 154 H POC Glucose 181 H Lactic Acid Calcium 8.0 L Ferritin AST ALT Lactate Dehydrogenase C-Reactive Protein Total Protein 5.4 L Albumin 3.0 L Triglycerides Arterial Blood Glucose Arterial Blood Ionized Calcium Urine Creatinine Urine Total Protein Vancomycin Trough Coronavirus (PCR) SARS-CoV-2 IgG Ab 07/10/20 07/11/20 07/11/20 23:51 04:05 05:43 WBC RBC Hgb Hct MCH MCHC RDW Plt Count Lymph % (Auto) Lymph # (Auto) Seg Neutrophils % Seg Neuts % (Manual) Lymphocytes % (Manual) Eosinophils % (Manual) Nucleated RBC % Seg Neutrophils # Seg Neutrophils # Man Lymphocytes # (Manual) Eosinophils # (Manual) D-Dimer ABG pH 7.348 L POC ABG pCO2 POC ABG pO2 ABG pO2 93.6 H ABG HCO3 28.5 H ABG O2 Saturation ABG Base Excess ABG Hemoglobin 10.1 L ABG Oxyhemoglobin ABG Sodium ABG Potassium ABG Chloride ABG Glucose Oxyhemoglobin Carboxyhemoglobin Sodium Potassium Chloride Carbon Dioxide BUN Creatinine Glucose POC Glucose 116 H 132 H Lactic Acid Calcium Ferritin AST ALT Lactate Dehydrogenase C-Reactive Protein Total Protein Albumin Triglycerides Arterial Blood Glucose Arterial Blood Ionized Calcium Urine Creatinine Urine Total Protein Vancomycin Trough Coronavirus (PCR) SARS-CoV-2 IgG Ab 07/11/20 07/11/20 07/11/20 09:11 09:11 09:11 WBC 15.8 H RBC 3.44 L Hgb Hct MCH MCHC RDW Plt Count Lymph % (Auto) Lymph # (Auto) Seg Neutrophils % Seg Neuts % (Manual) 92.0 H Lymphocytes % (Manual) 4.0 L Eosinophils % (Manual) Nucleated RBC % Seg Neutrophils # Seg Neutrophils # Man 14.5 H Lymphocytes # (Manual) 0.6 L Eosinophils # (Manual) D-Dimer 360.61 H ABG pH POC ABG pCO2 POC ABG pO2 ABG pO2 ABG HCO3 ABG O2 Saturation ABG Base Excess ABG Hemoglobin ABG Oxyhemoglobin ABG Sodium ABG Potassium ABG Chloride ABG Glucose Oxyhemoglobin Carboxyhemoglobin Sodium Potassium Chloride 107.1 H Carbon Dioxide BUN 22 H Creatinine Glucose 149 H POC Glucose Lactic Acid Calcium 7.8 L Ferritin AST ALT Lactate Dehydrogenase 483 H C-Reactive Protein 2.30 H Total Protein 4.9 L Albumin 3.0 L Triglycerides Arterial Blood Glucose Arterial Blood Ionized Calcium Urine Creatinine Urine Total Protein Vancomycin Trough Coronavirus (PCR) SARS-CoV-2 IgG Ab 07/11/20 07/11/20 07/11/20 09:11 12:16 17:55 WBC RBC Hgb Hct MCH MCHC RDW Plt Count Lymph % (Auto) Lymph # (Auto) Seg Neutrophils % Seg Neuts % (Manual) Lymphocytes % (Manual) Eosinophils % (Manual) Nucleated RBC % Seg Neutrophils # Seg Neutrophils # Man Lymphocytes # (Manual) Eosinophils # (Manual) D-Dimer ABG pH POC ABG pCO2 POC ABG pO2 ABG pO2 ABG HCO3 ABG O2 Saturation ABG Base Excess ABG Hemoglobin ABG Oxyhemoglobin ABG Sodium ABG Potassium ABG Chloride ABG Glucose Oxyhemoglobin Carboxyhemoglobin Sodium Potassium Chloride Carbon Dioxide BUN Creatinine Glucose POC Glucose 157 H 166 H Lactic Acid Calcium Ferritin 371.2 H AST ALT Lactate Dehydrogenase C-Reactive Protein Total Protein Albumin Triglycerides Arterial Blood Glucose Arterial Blood Ionized Calcium Urine Creatinine Urine Total Protein Vancomycin Trough Coronavirus (PCR) SARS-CoV-2 IgG Ab 07/12/20 07/12/20 07/12/20 00:32 04:00 04:00 WBC RBC 3.52 L Hgb Hct MCH MCHC RDW Plt Count Lymph % (Auto) Lymph # (Auto) Seg Neutrophils % Seg Neuts % (Manual) 90.0 H Lymphocytes % (Manual) 4.0 L Eosinophils % (Manual) Nucleated RBC % Seg Neutrophils # Seg Neutrophils # Man 9.5 H Lymphocytes # (Manual) 0.4 L Eosinophils # (Manual) D-Dimer ABG pH POC ABG pCO2 POC ABG pO2 ABG pO2 ABG HCO3 ABG O2 Saturation ABG Base Excess ABG Hemoglobin ABG Oxyhemoglobin ABG Sodium ABG Potassium ABG Chloride ABG Glucose Oxyhemoglobin Carboxyhemoglobin Sodium Potassium Chloride Carbon Dioxide 31 H BUN 21 H Creatinine Glucose 175 H POC Glucose 178 H Lactic Acid Calcium 8.0 L Ferritin AST ALT Lactate Dehydrogenase C-Reactive Protein Total Protein 5.4 L Albumin 3.0 L Triglycerides Arterial Blood Glucose Arterial Blood Ionized Calcium Urine Creatinine Urine Total Protein Vancomycin Trough Coronavirus (PCR) SARS-CoV-2 IgG Ab 07/12/20 07/12/20 07/12/20 04:01 05:47 12:09 WBC RBC Hgb Hct MCH MCHC RDW Plt Count Lymph % (Auto) Lymph # (Auto) Seg Neutrophils % Seg Neuts % (Manual) Lymphocytes % (Manual) Eosinophils % (Manual) Nucleated RBC % Seg Neutrophils # Seg Neutrophils # Man Lymphocytes # (Manual) Eosinophils # (Manual) D-Dimer ABG pH 7.465 H POC ABG pCO2 POC ABG pO2 ABG pO2 ABG HCO3 ABG O2 Saturation ABG Base Excess ABG Hemoglobin 10.6 L ABG Oxyhemoglobin ABG Sodium ABG Potassium ABG Chloride ABG Glucose 177 H Oxyhemoglobin Carboxyhemoglobin Sodium Potassium Chloride Carbon Dioxide BUN Creatinine Glucose POC Glucose 185 H 227 H Lactic Acid Calcium Ferritin AST ALT Lactate Dehydrogenase C-Reactive Protein Total Protein Albumin Triglycerides Arterial Blood Glucose 177 H Arterial Blood Ionized Calcium 4.5 L Urine Creatinine Urine Total Protein Vancomycin Trough Coronavirus (PCR) SARS-CoV-2 IgG Ab 07/12/20 07/12/20 07/13/20 17:34 23:57 05:06 WBC RBC Hgb Hct MCH MCHC RDW Plt Count Lymph % (Auto) Lymph # (Auto) Seg Neutrophils % Seg Neuts % (Manual) Lymphocytes % (Manual) Eosinophils % (Manual) Nucleated RBC % Seg Neutrophils # Seg Neutrophils # Man Lymphocytes # (Manual) Eosinophils # (Manual) D-Dimer ABG pH POC ABG pCO2 POC ABG pO2 ABG pO2 ABG HCO3 ABG O2 Saturation ABG Base Excess ABG Hemoglobin ABG Oxyhemoglobin ABG Sodium ABG Potassium ABG Chloride ABG Glucose Oxyhemoglobin Carboxyhemoglobin Sodium Potassium Chloride Carbon Dioxide BUN Creatinine Glucose POC Glucose 202 H 163 H 166 H Lactic Acid Calcium Ferritin AST ALT Lactate Dehydrogenase C-Reactive Protein Total Protein Albumin Triglycerides Arterial Blood Glucose Arterial Blood Ionized Calcium Urine Creatinine Urine Total Protein Vancomycin Trough Coronavirus (PCR) SARS-CoV-2 IgG Ab 07/13/20 07/13/20 07/13/20 07:20 07:20 07:20 WBC 20.5 H RBC Hgb Hct MCH MCHC RDW Plt Count Lymph % (Auto) Lymph # (Auto) Seg Neutrophils % Seg Neuts % (Manual) 93.0 H Lymphocytes % (Manual) 3.0 L Eosinophils % (Manual) Nucleated RBC % Seg Neutrophils # Seg Neutrophils # Man 19.1 H Lymphocytes # (Manual) 0.6 L Eosinophils # (Manual) D-Dimer 826.36 H ABG pH POC ABG pCO2 POC ABG pO2 ABG pO2 ABG HCO3 ABG O2 Saturation ABG Base Excess ABG Hemoglobin ABG Oxyhemoglobin ABG Sodium ABG Potassium ABG Chloride ABG Glucose Oxyhemoglobin Carboxyhemoglobin Sodium Potassium Chloride Carbon Dioxide 31 H BUN 25 H Creatinine Glucose 163 H POC Glucose Lactic Acid Calcium 8.1 L Ferritin AST ALT Lactate Dehydrogenase 512 H C-Reactive Protein 1.80 H Total Protein 5.8 L Albumin 3.2 L Triglycerides Arterial Blood Glucose Arterial Blood Ionized Calcium Urine Creatinine Urine Total Protein Vancomycin Trough Coronavirus (PCR) SARS-CoV-2 IgG Ab 07/13/20 07/13/20 07/13/20 07:20 11:37 17:20 WBC RBC Hgb Hct MCH MCHC RDW Plt Count Lymph % (Auto) Lymph # (Auto) Seg Neutrophils % Seg Neuts % (Manual) Lymphocytes % (Manual) Eosinophils % (Manual) Nucleated RBC % Seg Neutrophils # Seg Neutrophils # Man Lymphocytes # (Manual) Eosinophils # (Manual) D-Dimer ABG pH POC ABG pCO2 POC ABG pO2 ABG pO2 ABG HCO3 ABG O2 Saturation ABG Base Excess ABG Hemoglobin ABG Oxyhemoglobin ABG Sodium ABG Potassium ABG Chloride ABG Glucose Oxyhemoglobin Carboxyhemoglobin Sodium Potassium Chloride Carbon Dioxide BUN Creatinine Glucose POC Glucose 232 H 210 H Lactic Acid Calcium Ferritin 219.8 H AST ALT Lactate Dehydrogenase C-Reactive Protein Total Protein Albumin Triglycerides Arterial Blood Glucose Arterial Blood Ionized Calcium Urine Creatinine Urine Total Protein Vancomycin Trough Coronavirus (PCR) SARS-CoV-2 IgG Ab 07/13/20 07/13/20 07/14/20 23:57 Unknown 05:22 WBC RBC Hgb Hct MCH MCHC RDW Plt Count Lymph % (Auto) Lymph # (Auto) Seg Neutrophils % Seg Neuts % (Manual) Lymphocytes % (Manual) Eosinophils % (Manual) Nucleated RBC % Seg Neutrophils # Seg Neutrophils # Man Lymphocytes # (Manual) Eosinophils # (Manual) D-Dimer ABG pH 7.341 L POC ABG pCO2 POC ABG pO2 133.0 H ABG pO2 56.5 L ABG HCO3 29.7 H ABG O2 Saturation 89.3 L ABG Base Excess ABG Hemoglobin 11.0 L ABG Oxyhemoglobin ABG Sodium ABG Potassium ABG Chloride ABG Glucose 207 H Oxyhemoglobin 87.7 L Carboxyhemoglobin Sodium Potassium Chloride Carbon Dioxide BUN Creatinine Glucose POC Glucose 190 H Lactic Acid Calcium Ferritin AST ALT Lactate Dehydrogenase C-Reactive Protein Total Protein Albumin Triglycerides Arterial Blood Glucose 207 H Arterial Blood Ionized Calcium 4.5 L Urine Creatinine Urine Total Protein Vancomycin Trough Coronavirus (PCR) SARS-CoV-2 IgG Ab 07/14/20 07/14/20 07/14/20 05:54 11:16 17:50 WBC RBC Hgb Hct MCH MCHC RDW Plt Count Lymph % (Auto) Lymph # (Auto) Seg Neutrophils % Seg Neuts % (Manual) Lymphocytes % (Manual) Eosinophils % (Manual) Nucleated RBC % Seg Neutrophils # Seg Neutrophils # Man Lymphocytes # (Manual) Eosinophils # (Manual) D-Dimer ABG pH POC ABG pCO2 POC ABG pO2 ABG pO2 ABG HCO3 ABG O2 Saturation ABG Base Excess ABG Hemoglobin ABG Oxyhemoglobin ABG Sodium ABG Potassium ABG Chloride ABG Glucose Oxyhemoglobin Carboxyhemoglobin Sodium Potassium Chloride Carbon Dioxide BUN Creatinine Glucose POC Glucose 206 H 196 H 205 H Lactic Acid Calcium Ferritin AST ALT Lactate Dehydrogenase C-Reactive Protein Total Protein Albumin Triglycerides Arterial Blood Glucose Arterial Blood Ionized Calcium Urine Creatinine Urine Total Protein Vancomycin Trough Coronavirus (PCR) SARS-CoV-2 IgG Ab 07/14/20 07/15/20 07/15/20 23:28 03:16 06:12 WBC RBC Hgb Hct MCH MCHC RDW Plt Count Lymph % (Auto) Lymph # (Auto) Seg Neutrophils % Seg Neuts % (Manual) Lymphocytes % (Manual) Eosinophils % (Manual) Nucleated RBC % Seg Neutrophils # Seg Neutrophils # Man Lymphocytes # (Manual) Eosinophils # (Manual) D-Dimer ABG pH POC ABG pCO2 49.2 H POC ABG pO2 120.3 H ABG pO2 ABG HCO3 ABG O2 Saturation ABG Base Excess ABG Hemoglobin 9.5 L ABG Oxyhemoglobin ABG Sodium ABG Potassium ABG Chloride ABG Glucose 148 H Oxyhemoglobin Carboxyhemoglobin Sodium Potassium Chloride Carbon Dioxide BUN Creatinine Glucose POC Glucose 160 H 178 H Lactic Acid Calcium Ferritin AST ALT Lactate Dehydrogenase C-Reactive Protein Total Protein Albumin Triglycerides Arterial Blood Glucose 148 H Arterial Blood Ionized Calcium Urine Creatinine Urine Total Protein Vancomycin Trough Coronavirus (PCR) SARS-CoV-2 IgG Ab 07/15/20 07/15/20 07/15/20 09:00 12:32 14:30 WBC RBC Hgb Hct MCH MCHC RDW Plt Count Lymph % (Auto) Lymph # (Auto) Seg Neutrophils % Seg Neuts % (Manual) Lymphocytes % (Manual) Eosinophils % (Manual) Nucleated RBC % Seg Neutrophils # Seg Neutrophils # Man Lymphocytes # (Manual) Eosinophils # (Manual) D-Dimer ABG pH POC ABG pCO2 POC ABG pO2 ABG pO2 ABG HCO3 ABG O2 Saturation ABG Base Excess ABG Hemoglobin ABG Oxyhemoglobin ABG Sodium ABG Potassium ABG Chloride ABG Glucose Oxyhemoglobin Carboxyhemoglobin Sodium Potassium Chloride Carbon Dioxide BUN Creatinine Glucose POC Glucose 173 H Lactic Acid Calcium Ferritin AST ALT Lactate Dehydrogenase 531 H C-Reactive Protein Total Protein Albumin Triglycerides Arterial Blood Glucose Arterial Blood Ionized Calcium Urine Creatinine Urine Total Protein Vancomycin Trough Coronavirus (PCR) SARS-CoV-2 IgG Ab Reactive A 07/15/20 07/15/20 07/16/20 18:24 23:35 04:03 WBC RBC Hgb Hct MCH MCHC RDW Plt Count Lymph % (Auto) Lymph # (Auto) Seg Neutrophils % Seg Neuts % (Manual) Lymphocytes % (Manual) Eosinophils % (Manual) Nucleated RBC % Seg Neutrophils # Seg Neutrophils # Man Lymphocytes # (Manual) Eosinophils # (Manual) D-Dimer ABG pH POC ABG pCO2 POC ABG pO2 ABG pO2 72.7 L ABG HCO3 35.5 H ABG O2 Saturation ABG Base Excess 9.4 H ABG Hemoglobin 10.6 L ABG Oxyhemoglobin ABG Sodium ABG Potassium ABG Chloride ABG Glucose Oxyhemoglobin 93.6 L Carboxyhemoglobin Sodium Potassium Chloride Carbon Dioxide BUN Creatinine Glucose POC Glucose 173 H 181 H Lactic Acid Calcium Ferritin AST ALT Lactate Dehydrogenase C-Reactive Protein Total Protein Albumin Triglycerides Arterial Blood Glucose Arterial Blood Ionized Calcium Urine Creatinine Urine Total Protein Vancomycin Trough Coronavirus (PCR) SARS-CoV-2 IgG Ab 07/16/20 07/16/20 07/16/20 05:35 09:00 09:00 WBC 16.5 H RBC 3.59 L Hgb Hct MCH MCHC RDW Plt Count Lymph % (Auto) Lymph # (Auto) Seg Neutrophils % Seg Neuts % (Manual) 96.0 H Lymphocytes % (Manual) 3.0 L Eosinophils % (Manual) Nucleated RBC % Seg Neutrophils # Seg Neutrophils # Man 15.8 H Lymphocytes # (Manual) 0.5 L Eosinophils # (Manual) D-Dimer ABG pH POC ABG pCO2 POC ABG pO2 ABG pO2 ABG HCO3 ABG O2 Saturation ABG Base Excess ABG Hemoglobin ABG Oxyhemoglobin ABG Sodium ABG Potassium ABG Chloride ABG Glucose Oxyhemoglobin Carboxyhemoglobin Sodium Potassium Chloride Carbon Dioxide 39 H D BUN 25 H Creatinine 0.4 L Glucose 167 H POC Glucose 129 H Lactic Acid Calcium 8.3 L Ferritin AST ALT Lactate Dehydrogenase C-Reactive Protein Total Protein Albumin Triglycerides Arterial Blood Glucose Arterial Blood Ionized Calcium Urine Creatinine Urine Total Protein Vancomycin Trough Coronavirus (PCR) SARS-CoV-2 IgG Ab 07/16/20 07/16/20 07/17/20 12:32 18:28 00:09 WBC RBC Hgb Hct MCH MCHC RDW Plt Count Lymph % (Auto) Lymph # (Auto) Seg Neutrophils % Seg Neuts % (Manual) Lymphocytes % (Manual) Eosinophils % (Manual) Nucleated RBC % Seg Neutrophils # Seg Neutrophils # Man Lymphocytes # (Manual) Eosinophils # (Manual) D-Dimer ABG pH POC ABG pCO2 POC ABG pO2 ABG pO2 ABG HCO3 ABG O2 Saturation ABG Base Excess ABG Hemoglobin ABG Oxyhemoglobin ABG Sodium ABG Potassium ABG Chloride ABG Glucose Oxyhemoglobin Carboxyhemoglobin Sodium Potassium Chloride Carbon Dioxide BUN Creatinine Glucose POC Glucose 187 H 174 H 184 H Lactic Acid Calcium Ferritin AST ALT Lactate Dehydrogenase C-Reactive Protein Total Protein Albumin Triglycerides Arterial Blood Glucose Arterial Blood Ionized Calcium Urine Creatinine Urine Total Protein Vancomycin Trough Coronavirus (PCR) SARS-CoV-2 IgG Ab 07/17/20 07/17/20 07/17/20 04:30 05:47 13:03 WBC RBC Hgb Hct MCH MCHC RDW Plt Count Lymph % (Auto) Lymph # (Auto) Seg Neutrophils % Seg Neuts % (Manual) Lymphocytes % (Manual) Eosinophils % (Manual) Nucleated RBC % Seg Neutrophils # Seg Neutrophils # Man Lymphocytes # (Manual) Eosinophils # (Manual) D-Dimer ABG pH POC ABG pCO2 POC ABG pO2 ABG pO2 ABG HCO3 38.1 H ABG O2 Saturation ABG Base Excess 11.3 H ABG Hemoglobin 10.5 L ABG Oxyhemoglobin ABG Sodium ABG Potassium ABG Chloride ABG Glucose Oxyhemoglobin Carboxyhemoglobin Sodium Potassium Chloride Carbon Dioxide BUN Creatinine Glucose POC Glucose 135 H 210 H Lactic Acid Calcium Ferritin AST ALT Lactate Dehydrogenase C-Reactive Protein Total Protein Albumin Triglycerides Arterial Blood Glucose Arterial Blood Ionized Calcium Urine Creatinine Urine Total Protein Vancomycin Trough Coronavirus (PCR) SARS-CoV-2 IgG Ab 07/17/20 07/17/20 07/18/20 16:50 23:39 04:01 WBC RBC Hgb Hct MCH MCHC RDW Plt Count Lymph % (Auto) Lymph # (Auto) Seg Neutrophils % Seg Neuts % (Manual) Lymphocytes % (Manual) Eosinophils % (Manual) Nucleated RBC % Seg Neutrophils # Seg Neutrophils # Man Lymphocytes # (Manual) Eosinophils # (Manual) D-Dimer ABG pH POC ABG pCO2 56.8 H POC ABG pO2 61.9 L ABG pO2 ABG HCO3 ABG O2 Saturation ABG Base Excess ABG Hemoglobin 11.7 L ABG Oxyhemoglobin ABG Sodium 134.2 L ABG Potassium 4.7 H ABG Chloride 97.0 L ABG Glucose 173 H Oxyhemoglobin Carboxyhemoglobin Sodium Potassium Chloride Carbon Dioxide BUN Creatinine Glucose POC Glucose 193 H 163 H Lactic Acid Calcium Ferritin AST ALT Lactate Dehydrogenase C-Reactive Protein Total Protein Albumin Triglycerides Arterial Blood Glucose 173 H Arterial Blood Ionized Calcium Urine Creatinine Urine Total Protein Vancomycin Trough Coronavirus (PCR) SARS-CoV-2 IgG Ab 07/18/20 07/18/20 07/18/20 05:41 12:03 17:26 WBC RBC Hgb Hct MCH MCHC RDW Plt Count Lymph % (Auto) Lymph # (Auto) Seg Neutrophils % Seg Neuts % (Manual) Lymphocytes % (Manual) Eosinophils % (Manual) Nucleated RBC % Seg Neutrophils # Seg Neutrophils # Man Lymphocytes # (Manual) Eosinophils # (Manual) D-Dimer ABG pH POC ABG pCO2 POC ABG pO2 ABG pO2 ABG HCO3 ABG O2 Saturation ABG Base Excess ABG Hemoglobin ABG Oxyhemoglobin ABG Sodium ABG Potassium ABG Chloride ABG Glucose Oxyhemoglobin Carboxyhemoglobin Sodium Potassium Chloride Carbon Dioxide BUN Creatinine Glucose POC Glucose 153 H 177 H 160 H Lactic Acid Calcium Ferritin AST ALT Lactate Dehydrogenase C-Reactive Protein Total Protein Albumin Triglycerides Arterial Blood Glucose Arterial Blood Ionized Calcium Urine Creatinine Urine Total Protein Vancomycin Trough Coronavirus (PCR) SARS-CoV-2 IgG Ab 07/18/20 07/19/20 07/19/20 23:58 04:15 05:05 WBC RBC Hgb Hct MCH MCHC RDW Plt Count Lymph % (Auto) Lymph # (Auto) Seg Neutrophils % Seg Neuts % (Manual) Lymphocytes % (Manual) Eosinophils % (Manual) Nucleated RBC % Seg Neutrophils # Seg Neutrophils # Man Lymphocytes # (Manual) Eosinophils # (Manual) D-Dimer ABG pH 7.465 H POC ABG pCO2 49.1 H POC ABG pO2 49.4 L ABG pO2 ABG HCO3 ABG O2 Saturation ABG Base Excess ABG Hemoglobin 11.6 L ABG Oxyhemoglobin ABG Sodium 132.3 L ABG Potassium ABG Chloride 97.0 L ABG Glucose 148 H Oxyhemoglobin Carboxyhemoglobin Sodium Potassium Chloride Carbon Dioxide BUN Creatinine Glucose POC Glucose 144 H 117 H Lactic Acid Calcium Ferritin AST ALT Lactate Dehydrogenase C-Reactive Protein Total Protein Albumin Triglycerides Arterial Blood Glucose 148 H Arterial Blood Ionized Calcium Urine Creatinine Urine Total Protein Vancomycin Trough Coronavirus (PCR) SARS-CoV-2 IgG Ab 07/19/20 07/19/20 07/19/20 08:30 08:30 13:21 WBC 17.2 H RBC 3.59 L Hgb Hct MCH MCHC RDW Plt Count Lymph % (Auto) Lymph # (Auto) Seg Neutrophils % Seg Neuts % (Manual) Lymphocytes % (Manual) Eosinophils % (Manual) Nucleated RBC % Seg Neutrophils # Seg Neutrophils # Man Lymphocytes # (Manual) Eosinophils # (Manual) D-Dimer ABG pH POC ABG pCO2 POC ABG pO2 ABG pO2 ABG HCO3 ABG O2 Saturation ABG Base Excess ABG Hemoglobin ABG Oxyhemoglobin ABG Sodium ABG Potassium ABG Chloride ABG Glucose Oxyhemoglobin Carboxyhemoglobin Sodium Potassium Chloride 95.7 L Carbon Dioxide 37 H BUN 20 H Creatinine 0.4 L Glucose 125 H POC Glucose 137 H Lactic Acid Calcium 8.1 L Ferritin AST ALT Lactate Dehydrogenase C-Reactive Protein Total Protein Albumin Triglycerides Arterial Blood Glucose Arterial Blood Ionized Calcium Urine Creatinine Urine Total Protein Vancomycin Trough Coronavirus (PCR) SARS-CoV-2 IgG Ab 07/19/20 07/19/20 07/20/20 16:29 17:28 00:25 WBC RBC Hgb Hct MCH MCHC RDW Plt Count Lymph % (Auto) Lymph # (Auto) Seg Neutrophils % Seg Neuts % (Manual) Lymphocytes % (Manual) Eosinophils % (Manual) Nucleated RBC % Seg Neutrophils # Seg Neutrophils # Man Lymphocytes # (Manual) Eosinophils # (Manual) D-Dimer ABG pH POC ABG pCO2 53.4 H POC ABG pO2 71.0 L ABG pO2 ABG HCO3 ABG O2 Saturation ABG Base Excess ABG Hemoglobin 11.2 L ABG Oxyhemoglobin 93.6 L ABG Sodium 130.9 L ABG Potassium ABG Chloride 95.0 L ABG Glucose 188 H Oxyhemoglobin Carboxyhemoglobin Sodium Potassium Chloride Carbon Dioxide BUN Creatinine Glucose POC Glucose 174 H 188 H Lactic Acid Calcium Ferritin AST ALT Lactate Dehydrogenase C-Reactive Protein Total Protein Albumin Triglycerides Arterial Blood Glucose 188 H Arterial Blood Ionized Calcium 4.4 L Urine Creatinine Urine Total Protein Vancomycin Trough Coronavirus (PCR) SARS-CoV-2 IgG Ab 07/20/20 07/20/20 07/20/20 04:14 05:23 12:12 WBC RBC Hgb Hct MCH MCHC RDW Plt Count Lymph % (Auto) Lymph # (Auto) Seg Neutrophils % Seg Neuts % (Manual) Lymphocytes % (Manual) Eosinophils % (Manual) Nucleated RBC % Seg Neutrophils # Seg Neutrophils # Man Lymphocytes # (Manual) Eosinophils # (Manual) D-Dimer ABG pH POC ABG pCO2 52.7 H POC ABG pO2 59.5 L ABG pO2 ABG HCO3 ABG O2 Saturation ABG Base Excess ABG Hemoglobin 10.6 L ABG Oxyhemoglobin ABG Sodium 134.4 L ABG Potassium ABG Chloride ABG Glucose 176 H Oxyhemoglobin Carboxyhemoglobin Sodium Potassium Chloride Carbon Dioxide BUN Creatinine Glucose POC Glucose 212 H 190 H Lactic Acid Calcium Ferritin AST ALT Lactate Dehydrogenase C-Reactive Protein Total Protein Albumin Triglycerides Arterial Blood Glucose 176 H Arterial Blood Ionized Calcium 4.5 L Urine Creatinine Urine Total Protein Vancomycin Trough Coronavirus (PCR) SARS-CoV-2 IgG Ab 07/20/20 07/21/20 07/21/20 16:59 00:01 04:30 WBC RBC Hgb Hct MCH MCHC RDW Plt Count Lymph % (Auto) Lymph # (Auto) Seg Neutrophils % Seg Neuts % (Manual) Lymphocytes % (Manual) Eosinophils % (Manual) Nucleated RBC % Seg Neutrophils # Seg Neutrophils # Man Lymphocytes # (Manual) Eosinophils # (Manual) D-Dimer ABG pH 7.468 H POC ABG pCO2 POC ABG pO2 63.3 L ABG pO2 ABG HCO3 ABG O2 Saturation ABG Base Excess ABG Hemoglobin 11 L ABG Oxyhemoglobin ABG Sodium 135.0 L ABG Potassium ABG Chloride ABG Glucose 204 H Oxyhemoglobin Carboxyhemoglobin Sodium Potassium Chloride Carbon Dioxide BUN Creatinine Glucose POC Glucose 201 H 177 H Lactic Acid Calcium Ferritin AST ALT Lactate Dehydrogenase C-Reactive Protein Total Protein Albumin Triglycerides Arterial Blood Glucose 204 H Arterial Blood Ionized Calcium 4.5 L Urine Creatinine Urine Total Protein Vancomycin Trough Coronavirus (PCR) SARS-CoV-2 IgG Ab 07/21/20 07/21/20 07/21/20 05:26 11:50 17:16 WBC RBC Hgb Hct MCH MCHC RDW Plt Count Lymph % (Auto) Lymph # (Auto) Seg Neutrophils % Seg Neuts % (Manual) Lymphocytes % (Manual) Eosinophils % (Manual) Nucleated RBC % Seg Neutrophils # Seg Neutrophils # Man Lymphocytes # (Manual) Eosinophils # (Manual) D-Dimer ABG pH POC ABG pCO2 POC ABG pO2 ABG pO2 ABG HCO3 ABG O2 Saturation ABG Base Excess ABG Hemoglobin ABG Oxyhemoglobin ABG Sodium ABG Potassium ABG Chloride ABG Glucose Oxyhemoglobin Carboxyhemoglobin Sodium Potassium Chloride Carbon Dioxide BUN Creatinine Glucose POC Glucose 175 H 157 H 148 H Lactic Acid Calcium Ferritin AST ALT Lactate Dehydrogenase C-Reactive Protein Total Protein Albumin Triglycerides Arterial Blood Glucose Arterial Blood Ionized Calcium Urine Creatinine Urine Total Protein Vancomycin Trough Coronavirus (PCR) SARS-CoV-2 IgG Ab 07/22/20 07/22/20 07/22/20 00:01 03:26 05:16 WBC RBC Hgb Hct MCH MCHC RDW Plt Count Lymph % (Auto) Lymph # (Auto) Seg Neutrophils % Seg Neuts % (Manual) Lymphocytes % (Manual) Eosinophils % (Manual) Nucleated RBC % Seg Neutrophils # Seg Neutrophils # Man Lymphocytes # (Manual) Eosinophils # (Manual) D-Dimer ABG pH POC ABG pCO2 POC ABG pO2 54.2 L ABG pO2 ABG HCO3 ABG O2 Saturation ABG Base Excess ABG Hemoglobin 10.9 L ABG Oxyhemoglobin ABG Sodium 133.7 L ABG Potassium ABG Chloride ABG Glucose 217 H Oxyhemoglobin Carboxyhemoglobin Sodium Potassium Chloride Carbon Dioxide BUN Creatinine Glucose POC Glucose 172 H 182 H Lactic Acid Calcium Ferritin AST ALT Lactate Dehydrogenase C-Reactive Protein Total Protein Albumin Triglycerides Arterial Blood Glucose 217 H Arterial Blood Ionized Calcium 4.5 L Urine Creatinine Urine Total Protein Vancomycin Trough Coronavirus (PCR) SARS-CoV-2 IgG Ab 07/22/20 07/22/20 07/23/20 11:43 17:08 04:00 WBC 11.6 H RBC 3.54 L Hgb Hct MCH MCHC RDW Plt Count Lymph % (Auto) Lymph # (Auto) Seg Neutrophils % Seg Neuts % (Manual) 94.0 H Lymphocytes % (Manual) 5.0 L Eosinophils % (Manual) Nucleated RBC % Seg Neutrophils # Seg Neutrophils # Man 10.9 H Lymphocytes # (Manual) 0.6 L Eosinophils # (Manual) D-Dimer ABG pH POC ABG pCO2 POC ABG pO2 ABG pO2 ABG HCO3 ABG O2 Saturation ABG Base Excess ABG Hemoglobin ABG Oxyhemoglobin ABG Sodium ABG Potassium ABG Chloride ABG Glucose Oxyhemoglobin Carboxyhemoglobin Sodium Potassium Chloride Carbon Dioxide BUN Creatinine Glucose POC Glucose 159 H 163 H Lactic Acid Calcium Ferritin AST ALT Lactate Dehydrogenase C-Reactive Protein Total Protein Albumin Triglycerides Arterial Blood Glucose Arterial Blood Ionized Calcium Urine Creatinine Urine Total Protein Vancomycin Trough Coronavirus (PCR) SARS-CoV-2 IgG Ab 07/23/20 07/23/20 07/23/20 04:00 04:53 04:54 WBC RBC Hgb Hct MCH MCHC RDW Plt Count Lymph % (Auto) Lymph # (Auto) Seg Neutrophils % Seg Neuts % (Manual) Lymphocytes % (Manual) Eosinophils % (Manual) Nucleated RBC % Seg Neutrophils # Seg Neutrophils # Man Lymphocytes # (Manual) Eosinophils # (Manual) D-Dimer ABG pH 7.453 H POC ABG pCO2 POC ABG pO2 ABG pO2 ABG HCO3 32.4 H ABG O2 Saturation ABG Base Excess 7.5 H ABG Hemoglobin 10.7 L ABG Oxyhemoglobin ABG Sodium ABG Potassium ABG Chloride ABG Glucose Oxyhemoglobin Carboxyhemoglobin Sodium Potassium Chloride Carbon Dioxide 35 H BUN Creatinine 0.4 L Glucose 112 H POC Glucose 169 H Lactic Acid Calcium 8.2 L Ferritin AST ALT Lactate Dehydrogenase C-Reactive Protein Total Protein Albumin Triglycerides Arterial Blood Glucose Arterial Blood Ionized Calcium Urine Creatinine Urine Total Protein Vancomycin Trough Coronavirus (PCR) SARS-CoV-2 IgG Ab 07/23/20 07/23/20 07/23/20 11:50 23:19 Unknown WBC RBC Hgb Hct MCH MCHC RDW Plt Count Lymph % (Auto) Lymph # (Auto) Seg Neutrophils % Seg Neuts % (Manual) Lymphocytes % (Manual) Eosinophils % (Manual) Nucleated RBC % Seg Neutrophils # Seg Neutrophils # Man Lymphocytes # (Manual) Eosinophils # (Manual) D-Dimer ABG pH POC ABG pCO2 POC ABG pO2 ABG pO2 ABG HCO3 ABG O2 Saturation ABG Base Excess ABG Hemoglobin ABG Oxyhemoglobin ABG Sodium ABG Potassium ABG Chloride ABG Glucose Oxyhemoglobin Carboxyhemoglobin Sodium Potassium Chloride Carbon Dioxide BUN Creatinine Glucose POC Glucose 118 H 168 H Lactic Acid Calcium Ferritin AST ALT Lactate Dehydrogenase C-Reactive Protein Total Protein Albumin Triglycerides Arterial Blood Glucose Arterial Blood Ionized Calcium Urine Creatinine Urine Total Protein Vancomycin Trough Coronavirus (PCR) Positive A SARS-CoV-2 IgG Ab 07/24/20 07/24/20 07/24/20 04:11 05:37 11:42 WBC RBC Hgb Hct MCH MCHC RDW Plt Count Lymph % (Auto) Lymph # (Auto) Seg Neutrophils % Seg Neuts % (Manual) Lymphocytes % (Manual) Eosinophils % (Manual) Nucleated RBC % Seg Neutrophils # Seg Neutrophils # Man Lymphocytes # (Manual) Eosinophils # (Manual) D-Dimer ABG pH POC ABG pCO2 POC ABG pO2 ABG pO2 54.4 L ABG HCO3 34.3 H ABG O2 Saturation 89.0 L ABG Base Excess 8.5 H ABG Hemoglobin 11.0 L ABG Oxyhemoglobin ABG Sodium ABG Potassium ABG Chloride ABG Glucose Oxyhemoglobin 87.0 L Carboxyhemoglobin Sodium Potassium Chloride Carbon Dioxide BUN Creatinine Glucose POC Glucose 115 H 166 H Lactic Acid Calcium Ferritin AST ALT Lactate Dehydrogenase C-Reactive Protein Total Protein Albumin Triglycerides Arterial Blood Glucose Arterial Blood Ionized Calcium Urine Creatinine Urine Total Protein Vancomycin Trough Coronavirus (PCR) SARS-CoV-2 IgG Ab 07/24/20 07/24/20 07/25/20 17:39 23:38 03:53 WBC RBC Hgb Hct MCH MCHC RDW Plt Count Lymph % (Auto) Lymph # (Auto) Seg Neutrophils % Seg Neuts % (Manual) Lymphocytes % (Manual) Eosinophils % (Manual) Nucleated RBC % Seg Neutrophils # Seg Neutrophils # Man Lymphocytes # (Manual) Eosinophils # (Manual) D-Dimer ABG pH POC ABG pCO2 POC ABG pO2 ABG pO2 175.9 H ABG HCO3 34.0 H ABG O2 Saturation 99.1 H ABG Base Excess 8.2 H ABG Hemoglobin 10.6 L ABG Oxyhemoglobin ABG Sodium ABG Potassium ABG Chloride ABG Glucose Oxyhemoglobin Carboxyhemoglobin Sodium Potassium Chloride Carbon Dioxide BUN Creatinine Glucose POC Glucose 150 H 139 H Lactic Acid Calcium Ferritin AST ALT Lactate Dehydrogenase C-Reactive Protein Total Protein Albumin Triglycerides Arterial Blood Glucose Arterial Blood Ionized Calcium Urine Creatinine Urine Total Protein Vancomycin Trough Coronavirus (PCR) SARS-CoV-2 IgG Ab 07/25/20 07/25/20 07/25/20 05:47 12:09 23:46 WBC RBC Hgb Hct MCH MCHC RDW Plt Count Lymph % (Auto) Lymph # (Auto) Seg Neutrophils % Seg Neuts % (Manual) Lymphocytes % (Manual) Eosinophils % (Manual) Nucleated RBC % Seg Neutrophils # Seg Neutrophils # Man Lymphocytes # (Manual) Eosinophils # (Manual) D-Dimer ABG pH POC ABG pCO2 POC ABG pO2 ABG pO2 ABG HCO3 ABG O2 Saturation ABG Base Excess ABG Hemoglobin ABG Oxyhemoglobin ABG Sodium ABG Potassium ABG Chloride ABG Glucose Oxyhemoglobin Carboxyhemoglobin Sodium Potassium Chloride Carbon Dioxide BUN Creatinine Glucose POC Glucose 144 H 152 H 116 H Lactic Acid Calcium Ferritin AST ALT Lactate Dehydrogenase C-Reactive Protein Total Protein Albumin Triglycerides Arterial Blood Glucose Arterial Blood Ionized Calcium Urine Creatinine Urine Total Protein Vancomycin Trough Coronavirus (PCR) SARS-CoV-2 IgG Ab 07/26/20 07/26/20 07/26/20 03:48 05:36 11:28 WBC RBC Hgb Hct MCH MCHC RDW Plt Count Lymph % (Auto) Lymph # (Auto) Seg Neutrophils % Seg Neuts % (Manual) Lymphocytes % (Manual) Eosinophils % (Manual) Nucleated RBC % Seg Neutrophils # Seg Neutrophils # Man Lymphocytes # (Manual) Eosinophils # (Manual) D-Dimer ABG pH POC ABG pCO2 POC ABG pO2 ABG pO2 73.4 L ABG HCO3 35.0 H ABG O2 Saturation ABG Base Excess 8.3 H ABG Hemoglobin 9.8 L ABG Oxyhemoglobin ABG Sodium ABG Potassium ABG Chloride ABG Glucose Oxyhemoglobin 93.7 L Carboxyhemoglobin Sodium Potassium Chloride Carbon Dioxide BUN Creatinine Glucose POC Glucose 136 H 145 H Lactic Acid Calcium Ferritin AST ALT Lactate Dehydrogenase C-Reactive Protein Total Protein Albumin Triglycerides Arterial Blood Glucose Arterial Blood Ionized Calcium Urine Creatinine Urine Total Protein Vancomycin Trough Coronavirus (PCR) SARS-CoV-2 IgG Ab 07/26/20 07/26/20 07/26/20 14:23 17:19 23:33 WBC 12.0 H RBC 3.12 L Hgb 9.5 L Hct 28.6 L MCH MCHC RDW Plt Count Lymph % (Auto) 4.2 L Lymph # (Auto) 0.5 L Seg Neutrophils % 89.8 H Seg Neuts % (Manual) Lymphocytes % (Manual) Eosinophils % (Manual) Nucleated RBC % Seg Neutrophils # 10.8 H Seg Neutrophils # Man Lymphocytes # (Manual) Eosinophils # (Manual) D-Dimer ABG pH POC ABG pCO2 POC ABG pO2 ABG pO2 ABG HCO3 ABG O2 Saturation ABG Base Excess ABG Hemoglobin ABG Oxyhemoglobin ABG Sodium ABG Potassium ABG Chloride ABG Glucose Oxyhemoglobin Carboxyhemoglobin Sodium Potassium Chloride Carbon Dioxide BUN Creatinine Glucose POC Glucose 202 H 122 H Lactic Acid Calcium Ferritin AST ALT Lactate Dehydrogenase C-Reactive Protein Total Protein Albumin Triglycerides Arterial Blood Glucose Arterial Blood Ionized Calcium Urine Creatinine Urine Total Protein Vancomycin Trough Coronavirus (PCR) SARS-CoV-2 IgG Ab 07/27/20 07/27/20 07/27/20 04:30 05:54 12:06 WBC RBC Hgb Hct MCH MCHC RDW Plt Count Lymph % (Auto) Lymph # (Auto) Seg Neutrophils % Seg Neuts % (Manual) Lymphocytes % (Manual) Eosinophils % (Manual) Nucleated RBC % Seg Neutrophils # Seg Neutrophils # Man Lymphocytes # (Manual) Eosinophils # (Manual) D-Dimer ABG pH POC ABG pCO2 POC ABG pO2 ABG pO2 49.0 L ABG HCO3 35.7 H ABG O2 Saturation 87.6 L ABG Base Excess 10.1 H ABG Hemoglobin 11.5 L ABG Oxyhemoglobin ABG Sodium ABG Potassium ABG Chloride ABG Glucose Oxyhemoglobin 85.4 L Carboxyhemoglobin Sodium Potassium Chloride Carbon Dioxide BUN Creatinine Glucose POC Glucose 164 H 149 H Lactic Acid Calcium Ferritin AST ALT Lactate Dehydrogenase C-Reactive Protein Total Protein Albumin Triglycerides Arterial Blood Glucose Arterial Blood Ionized Calcium Urine Creatinine Urine Total Protein Vancomycin Trough Coronavirus (PCR) SARS-CoV-2 IgG Ab 07/27/20 07/27/20 07/27/20 13:00 14:18 14:18 WBC 12.2 H RBC 3.33 L Hgb 10.0 L Hct MCH MCHC RDW Plt Count Lymph % (Auto) Lymph # (Auto) Seg Neutrophils % Seg Neuts % (Manual) 90.0 H Lymphocytes % (Manual) 7.0 L Eosinophils % (Manual) Nucleated RBC % Seg Neutrophils # Seg Neutrophils # Man 11.0 H Lymphocytes # (Manual) 0.9 L Eosinophils # (Manual) D-Dimer ABG pH 7.313 L POC ABG pCO2 POC ABG pO2 ABG pO2 107.5 H ABG HCO3 37.6 H ABG O2 Saturation ABG Base Excess 8.1 H ABG Hemoglobin 10.1 L ABG Oxyhemoglobin ABG Sodium ABG Potassium ABG Chloride ABG Glucose Oxyhemoglobin Carboxyhemoglobin Sodium Potassium Chloride 97.6 L Carbon Dioxide 35 H BUN 18 H Creatinine Glucose 135 H POC Glucose Lactic Acid Calcium 8.3 L Ferritin AST ALT Lactate Dehydrogenase C-Reactive Protein Total Protein Albumin Triglycerides Arterial Blood Glucose Arterial Blood Ionized Calcium Urine Creatinine Urine Total Protein Vancomycin Trough Coronavirus (PCR) SARS-CoV-2 IgG Ab 07/27/20 07/27/20 07/28/20 17:09 23:14 04:15 WBC RBC Hgb Hct MCH MCHC RDW Plt Count Lymph % (Auto) Lymph # (Auto) Seg Neutrophils % Seg Neuts % (Manual) Lymphocytes % (Manual) Eosinophils % (Manual) Nucleated RBC % Seg Neutrophils # Seg Neutrophils # Man Lymphocytes # (Manual) Eosinophils # (Manual) D-Dimer ABG pH 7.317 L POC ABG pCO2 POC ABG pO2 ABG pO2 130.3 H ABG HCO3 40.9 H ABG O2 Saturation ABG Base Excess 13.5 H ABG Hemoglobin 5.8 L ABG Oxyhemoglobin ABG Sodium ABG Potassium ABG Chloride ABG Glucose Oxyhemoglobin Carboxyhemoglobin Sodium Potassium Chloride Carbon Dioxide BUN Creatinine Glucose POC Glucose 115 H 139 H Lactic Acid Calcium Ferritin AST ALT Lactate Dehydrogenase C-Reactive Protein Total Protein Albumin Triglycerides Arterial Blood Glucose Arterial Blood Ionized Calcium Urine Creatinine Urine Total Protein Vancomycin Trough Coronavirus (PCR) SARS-CoV-2 IgG Ab 07/28/20 07/28/20 07/28/20 05:34 09:20 09:20 WBC RBC 2.89 L Hgb 9.5 L Hct 26.6 L MCH 33 H MCHC 36 H RDW Plt Count 123 L Lymph % (Auto) Lymph # (Auto) Seg Neutrophils % Seg Neuts % (Manual) 89.0 H Lymphocytes % (Manual) 5.0 L Eosinophils % (Manual) Nucleated RBC % Seg Neutrophils # Seg Neutrophils # Man 8.6 H Lymphocytes # (Manual) 0.5 L Eosinophils # (Manual) D-Dimer ABG pH POC ABG pCO2 POC ABG pO2 ABG pO2 ABG HCO3 ABG O2 Saturation ABG Base Excess ABG Hemoglobin ABG Oxyhemoglobin ABG Sodium ABG Potassium ABG Chloride ABG Glucose Oxyhemoglobin Carboxyhemoglobin Sodium 134 L Potassium Chloride 95.6 L Carbon Dioxide 39 H BUN Creatinine 0.3 L Glucose 131 H POC Glucose 130 H Lactic Acid Calcium 7.9 L Ferritin AST ALT Lactate Dehydrogenase C-Reactive Protein Total Protein Albumin Triglycerides Arterial Blood Glucose Arterial Blood Ionized Calcium Urine Creatinine Urine Total Protein Vancomycin Trough Coronavirus (PCR) SARS-CoV-2 IgG Ab 07/28/20 07/28/20 07/28/20 11:50 18:36 23:22 WBC RBC Hgb Hct MCH MCHC RDW Plt Count Lymph % (Auto) Lymph # (Auto) Seg Neutrophils % Seg Neuts % (Manual) Lymphocytes % (Manual) Eosinophils % (Manual) Nucleated RBC % Seg Neutrophils # Seg Neutrophils # Man Lymphocytes # (Manual) Eosinophils # (Manual) D-Dimer ABG pH POC ABG pCO2 POC ABG pO2 ABG pO2 ABG HCO3 ABG O2 Saturation ABG Base Excess ABG Hemoglobin ABG Oxyhemoglobin ABG Sodium ABG Potassium ABG Chloride ABG Glucose Oxyhemoglobin Carboxyhemoglobin Sodium Potassium Chloride Carbon Dioxide BUN Creatinine Glucose POC Glucose 128 H 119 H 122 H Lactic Acid Calcium Ferritin AST ALT Lactate Dehydrogenase C-Reactive Protein Total Protein Albumin Triglycerides Arterial Blood Glucose Arterial Blood Ionized Calcium Urine Creatinine Urine Total Protein Vancomycin Trough Coronavirus (PCR) SARS-CoV-2 IgG Ab 07/29/20 07/29/20 07/29/20 03:18 07:54 07:54 WBC 11.1 H RBC 3.49 L Hgb Hct MCH MCHC RDW Plt Count 139 L Lymph % (Auto) Lymph # (Auto) Seg Neutrophils % Seg Neuts % (Manual) 90.0 H Lymphocytes % (Manual) 1.0 L Eosinophils % (Manual) 5.0 H Nucleated RBC % Seg Neutrophils # Seg Neutrophils # Man 10.0 H Lymphocytes # (Manual) 0.1 L Eosinophils # (Manual) 0.6 H D-Dimer ABG pH POC ABG pCO2 69.5 H POC ABG pO2 109.3 H ABG pO2 ABG HCO3 ABG O2 Saturation ABG Base Excess ABG Hemoglobin 10.8 L ABG Oxyhemoglobin ABG Sodium ABG Potassium ABG Chloride 95.0 L ABG Glucose 138 H Oxyhemoglobin Carboxyhemoglobin Sodium Potassium Chloride 94.5 L Carbon Dioxide 40 H BUN Creatinine 0.5 L D Glucose 104 H POC Glucose Lactic Acid Calcium Ferritin AST ALT Lactate Dehydrogenase C-Reactive Protein Total Protein Albumin Triglycerides Arterial Blood Glucose 138 H Arterial Blood Ionized Calcium Urine Creatinine Urine Total Protein Vancomycin Trough Coronavirus (PCR) SARS-CoV-2 IgG Ab 07/29/20 07/29/20 07/29/20 11:05 18:17 19:41 WBC RBC Hgb Hct MCH MCHC RDW Plt Count Lymph % (Auto) Lymph # (Auto) Seg Neutrophils % Seg Neuts % (Manual) Lymphocytes % (Manual) Eosinophils % (Manual) Nucleated RBC % Seg Neutrophils # Seg Neutrophils # Man Lymphocytes # (Manual) Eosinophils # (Manual) D-Dimer ABG pH 7.305 L POC ABG pCO2 73.3 H 66.7 H POC ABG pO2 28.2 L 32.7 L ABG pO2 ABG HCO3 ABG O2 Saturation ABG Base Excess ABG Hemoglobin 11.8 L 11.5 L ABG Oxyhemoglobin ABG Sodium ABG Potassium ABG Chloride 94.0 L 95.0 L ABG Glucose 207 H 141 H Oxyhemoglobin Carboxyhemoglobin Sodium Potassium Chloride Carbon Dioxide BUN Creatinine Glucose POC Glucose 113 H Lactic Acid Calcium Ferritin AST ALT Lactate Dehydrogenase C-Reactive Protein Total Protein Albumin Triglycerides Arterial Blood Glucose 207 H 141 H Arterial Blood Ionized Calcium 4.5 L Urine Creatinine Urine Total Protein Vancomycin Trough Coronavirus (PCR) SARS-CoV-2 IgG Ab 07/29/20 07/30/20 07/30/20 23:28 04:47 05:28 WBC RBC Hgb Hct MCH MCHC RDW Plt Count Lymph % (Auto) Lymph # (Auto) Seg Neutrophils % Seg Neuts % (Manual) Lymphocytes % (Manual) Eosinophils % (Manual) Nucleated RBC % Seg Neutrophils # Seg Neutrophils # Man Lymphocytes # (Manual) Eosinophils # (Manual) D-Dimer ABG pH POC ABG pCO2 55.1 H POC ABG pO2 43.6 L ABG pO2 ABG HCO3 ABG O2 Saturation ABG Base Excess ABG Hemoglobin 11.9 L ABG Oxyhemoglobin ABG Sodium ABG Potassium ABG Chloride 96.0 L ABG Glucose 150 H Oxyhemoglobin Carboxyhemoglobin Sodium Potassium Chloride Carbon Dioxide BUN Creatinine Glucose POC Glucose 121 H 143 H Lactic Acid Calcium Ferritin AST ALT Lactate Dehydrogenase C-Reactive Protein Total Protein Albumin Triglycerides Arterial Blood Glucose 150 H Arterial Blood Ionized Calcium Urine Creatinine Urine Total Protein Vancomycin Trough Coronavirus (PCR) SARS-CoV-2 IgG Ab 07/30/20 07/30/20 07/30/20 08:18 12:00 14:17 WBC RBC Hgb Hct MCH MCHC RDW Plt Count Lymph % (Auto) Lymph # (Auto) Seg Neutrophils % Seg Neuts % (Manual) Lymphocytes % (Manual) Eosinophils % (Manual) Nucleated RBC % Seg Neutrophils # Seg Neutrophils # Man Lymphocytes # (Manual) Eosinophils # (Manual) D-Dimer ABG pH POC ABG pCO2 63.3 H 64.6 H POC ABG pO2 47.9 L 41.0 L ABG pO2 ABG HCO3 ABG O2 Saturation ABG Base Excess ABG Hemoglobin 10.5 L 10.2 L ABG Oxyhemoglobin 84.9 L ABG Sodium ABG Potassium ABG Chloride 97.0 L ABG Glucose 170 H 175 H Oxyhemoglobin Carboxyhemoglobin Sodium Potassium Chloride Carbon Dioxide BUN Creatinine Glucose POC Glucose 161 H Lactic Acid Calcium Ferritin AST ALT Lactate Dehydrogenase C-Reactive Protein Total Protein Albumin Triglycerides Arterial Blood Glucose 170 H 175 H Arterial Blood Ionized Calcium 4.4 L 4.4 L Urine Creatinine Urine Total Protein Vancomycin Trough Coronavirus (PCR) SARS-CoV-2 IgG Ab 07/30/20 07/30/20 07/30/20 15:15 15:15 15:15 WBC RBC 2.80 L Hgb 9.1 L Hct 26.0 L D MCH MCHC 35 H RDW Plt Count 101 L Lymph % (Auto) Lymph # (Auto) Seg Neutrophils % Seg Neuts % (Manual) 90.0 H Lymphocytes % (Manual) 7.0 L Eosinophils % (Manual) Nucleated RBC % Seg Neutrophils # Seg Neutrophils # Man Lymphocytes # (Manual) 0.4 L Eosinophils # (Manual) D-Dimer ABG pH POC ABG pCO2 POC ABG pO2 ABG pO2 ABG HCO3 ABG O2 Saturation ABG Base Excess ABG Hemoglobin ABG Oxyhemoglobin ABG Sodium ABG Potassium ABG Chloride ABG Glucose Oxyhemoglobin Carboxyhemoglobin Sodium Potassium Chloride 97.1 L Carbon Dioxide 32 H D BUN 39 H Creatinine 1.3 H D Glucose 167 H POC Glucose Lactic Acid Calcium 8.0 L Ferritin AST ALT Lactate Dehydrogenase C-Reactive Protein Total Protein Albumin Triglycerides 837 H Arterial Blood Glucose Arterial Blood Ionized Calcium Urine Creatinine Urine Total Protein Vancomycin Trough Coronavirus (PCR) SARS-CoV-2 IgG Ab 07/30/20 07/30/20 07/30/20 15:15 17:03 17:43 WBC RBC Hgb Hct MCH MCHC RDW Plt Count Lymph % (Auto) Lymph # (Auto) Seg Neutrophils % Seg Neuts % (Manual) Lymphocytes % (Manual) Eosinophils % (Manual) Nucleated RBC % Seg Neutrophils # Seg Neutrophils # Man Lymphocytes # (Manual) Eosinophils # (Manual) D-Dimer ABG pH POC ABG pCO2 POC ABG pO2 ABG pO2 ABG HCO3 ABG O2 Saturation ABG Base Excess ABG Hemoglobin ABG Oxyhemoglobin ABG Sodium ABG Potassium ABG Chloride ABG Glucose Oxyhemoglobin Carboxyhemoglobin Sodium Potassium Chloride Carbon Dioxide BUN Creatinine Glucose POC Glucose 171 H Lactic Acid 2.20 H* 3.60 H* Calcium Ferritin AST ALT Lactate Dehydrogenase C-Reactive Protein Total Protein Albumin Triglycerides Arterial Blood Glucose Arterial Blood Ionized Calcium Urine Creatinine Urine Total Protein Vancomycin Trough Coronavirus (PCR) SARS-CoV-2 IgG Ab 07/30/20 07/30/20 07/31/20 20:13 23:37 04:15 WBC RBC Hgb Hct MCH MCHC RDW Plt Count Lymph % (Auto) Lymph # (Auto) Seg Neutrophils % Seg Neuts % (Manual) Lymphocytes % (Manual) Eosinophils % (Manual) Nucleated RBC % Seg Neutrophils # Seg Neutrophils # Man Lymphocytes # (Manual) Eosinophils # (Manual) D-Dimer ABG pH 7.544 H 7.489 H POC ABG pCO2 POC ABG pO2 44.4 L 50.0 L ABG pO2 ABG HCO3 ABG O2 Saturation ABG Base Excess ABG Hemoglobin 10.4 L ABG Oxyhemoglobin ABG Sodium 135.3 L ABG Potassium ABG Chloride ABG Glucose 201 H 199 H Oxyhemoglobin Carboxyhemoglobin Sodium Potassium Chloride Carbon Dioxide BUN Creatinine Glucose POC Glucose 160 H Lactic Acid Calcium Ferritin AST ALT Lactate Dehydrogenase C-Reactive Protein Total Protein Albumin Triglycerides Arterial Blood Glucose 201 H 199 H Arterial Blood Ionized Calcium 4.2 L 4.4 L Urine Creatinine Urine Total Protein Vancomycin Trough Coronavirus (PCR) SARS-CoV-2 IgG Ab 07/31/20 07/31/20 07/31/20 05:16 05:16 05:28 WBC RBC 3.03 L Hgb 9.2 L Hct 27.6 L MCH MCHC RDW Plt Count 118 L Lymph % (Auto) 6.3 L Lymph # (Auto) 0.5 L Seg Neutrophils % Seg Neuts % (Manual) Lymphocytes % (Manual) Eosinophils % (Manual) Nucleated RBC % Seg Neutrophils # Seg Neutrophils # Man Lymphocytes # (Manual) Eosinophils # (Manual) D-Dimer ABG pH POC ABG pCO2 POC ABG pO2 ABG pO2 ABG HCO3 ABG O2 Saturation ABG Base Excess ABG Hemoglobin ABG Oxyhemoglobin ABG Sodium ABG Potassium ABG Chloride ABG Glucose Oxyhemoglobin Carboxyhemoglobin Sodium Potassium Chloride Carbon Dioxide BUN 57 H Creatinine 1.7 H Glucose 208 H POC Glucose 182 H Lactic Acid Calcium 8.3 L Ferritin AST 613 H ALT 760 H Lactate Dehydrogenase C-Reactive Protein Total Protein 5.6 L Albumin 2.2 L Triglycerides Arterial Blood Glucose Arterial Blood Ionized Calcium Urine Creatinine Urine Total Protein Vancomycin Trough Coronavirus (PCR) SARS-CoV-2 IgG Ab 07/31/20 07/31/20 07/31/20 11:02 14:14 14:14 WBC RBC Hgb Hct MCH MCHC RDW Plt Count Lymph % (Auto) Lymph # (Auto) Seg Neutrophils % Seg Neuts % (Manual) Lymphocytes % (Manual) Eosinophils % (Manual) Nucleated RBC % Seg Neutrophils # Seg Neutrophils # Man Lymphocytes # (Manual) Eosinophils # (Manual) D-Dimer 2522.40 H ABG pH POC ABG pCO2 POC ABG pO2 ABG pO2 ABG HCO3 ABG O2 Saturation ABG Base Excess ABG Hemoglobin ABG Oxyhemoglobin ABG Sodium ABG Potassium ABG Chloride ABG Glucose Oxyhemoglobin Carboxyhemoglobin Sodium Potassium Chloride Carbon Dioxide BUN Creatinine Glucose POC Glucose 200 H Lactic Acid Calcium Ferritin 964.8 H AST ALT Lactate Dehydrogenase C-Reactive Protein Total Protein Albumin Triglycerides Arterial Blood Glucose Arterial Blood Ionized Calcium Urine Creatinine Urine Total Protein Vancomycin Trough Coronavirus (PCR) SARS-CoV-2 IgG Ab 07/31/20 07/31/20 07/31/20 14:14 14:14 16:00 WBC RBC Hgb Hct MCH MCHC RDW Plt Count Lymph % (Auto) Lymph # (Auto) Seg Neutrophils % Seg Neuts % (Manual) Lymphocytes % (Manual) Eosinophils % (Manual) Nucleated RBC % Seg Neutrophils # Seg Neutrophils # Man Lymphocytes # (Manual) Eosinophils # (Manual) D-Dimer ABG pH POC ABG pCO2 POC ABG pO2 ABG pO2 ABG HCO3 ABG O2 Saturation ABG Base Excess ABG Hemoglobin ABG Oxyhemoglobin ABG Sodium ABG Potassium ABG Chloride ABG Glucose Oxyhemoglobin Carboxyhemoglobin Sodium Potassium Chloride Carbon Dioxide BUN Creatinine Glucose POC Glucose Lactic Acid Calcium Ferritin AST ALT Lactate Dehydrogenase 585 H C-Reactive Protein 49.00 H Total Protein Albumin Triglycerides Arterial Blood Glucose Arterial Blood Ionized Calcium Urine Creatinine 89.2 H Urine Total Protein 108 H Vancomycin Trough 28.2 H Coronavirus (PCR) SARS-CoV-2 IgG Ab 07/31/20 07/31/20 08/01/20 17:22 21:26 00:07 WBC RBC Hgb Hct MCH MCHC RDW Plt Count Lymph % (Auto) Lymph # (Auto) Seg Neutrophils % Seg Neuts % (Manual) Lymphocytes % (Manual) Eosinophils % (Manual) Nucleated RBC % Seg Neutrophils # Seg Neutrophils # Man Lymphocytes # (Manual) Eosinophils # (Manual) D-Dimer ABG pH POC ABG pCO2 POC ABG pO2 156.0 H ABG pO2 ABG HCO3 ABG O2 Saturation ABG Base Excess ABG Hemoglobin 9.6 L ABG Oxyhemoglobin 98.4 H ABG Sodium 135.9 L ABG Potassium ABG Chloride ABG Glucose 290 H Oxyhemoglobin Carboxyhemoglobin 0.4 L Sodium Potassium Chloride Carbon Dioxide BUN Creatinine Glucose POC Glucose 229 H 255 H Lactic Acid Calcium Ferritin AST ALT Lactate Dehydrogenase C-Reactive Protein Total Protein Albumin Triglycerides Arterial Blood Glucose 290 H Arterial Blood Ionized Calcium 4.5 L Urine Creatinine Urine Total Protein Vancomycin Trough Coronavirus (PCR) SARS-CoV-2 IgG Ab 08/01/20 08/01/20 08/01/20 04:46 05:30 05:30 WBC RBC 2.27 L Hgb 7.6 L Hct 20.9 L D MCH 34 H MCHC 37 H RDW Plt Count 85 L Lymph % (Auto) Lymph # (Auto) Seg Neutrophils % Seg Neuts % (Manual) 87.0 H Lymphocytes % (Manual) 2.0 L Eosinophils % (Manual) Nucleated RBC % 1.0 H Seg Neutrophils # Seg Neutrophils # Man Lymphocytes # (Manual) 0.1 L Eosinophils # (Manual) D-Dimer ABG pH 7.462 H POC ABG pCO2 POC ABG pO2 70.2 L ABG pO2 ABG HCO3 ABG O2 Saturation ABG Base Excess ABG Hemoglobin 8.7 L ABG Oxyhemoglobin ABG Sodium 135.7 L ABG Potassium 3.3 L ABG Chloride ABG Glucose 275 H Oxyhemoglobin Carboxyhemoglobin Sodium 132 L D Potassium 2.8 L* D Chloride Carbon Dioxide BUN 47 H Creatinine Glucose 217 H POC Glucose Lactic Acid Calcium 6.6 L D Ferritin AST 117 H ALT 408 H Lactate Dehydrogenase C-Reactive Protein Total Protein 4.3 L D Albumin 0.6 L Triglycerides 2335 H Arterial Blood Glucose 275 H Arterial Blood Ionized Calcium 4.5 L Urine Creatinine Urine Total Protein Vancomycin Trough Coronavirus (PCR) SARS-CoV-2 IgG Ab 08/01/20 08/01/20 08/01/20 05:34 09:33 11:50 WBC RBC Hgb Hct MCH MCHC RDW Plt Count Lymph % (Auto) Lymph # (Auto) Seg Neutrophils % Seg Neuts % (Manual) Lymphocytes % (Manual) Eosinophils % (Manual) Nucleated RBC % Seg Neutrophils # Seg Neutrophils # Man Lymphocytes # (Manual) Eosinophils # (Manual) D-Dimer ABG pH POC ABG pCO2 POC ABG pO2 ABG pO2 ABG HCO3 ABG O2 Saturation ABG Base Excess ABG Hemoglobin ABG Oxyhemoglobin ABG Sodium ABG Potassium ABG Chloride ABG Glucose Oxyhemoglobin Carboxyhemoglobin Sodium Potassium Chloride Carbon Dioxide BUN 57 H Creatinine Glucose 250 H POC Glucose 246 H 239 H Lactic Acid Calcium 8.2 L D Ferritin AST ALT Lactate Dehydrogenase C-Reactive Protein Total Protein Albumin Triglycerides 759 H Arterial Blood Glucose Arterial Blood Ionized Calcium Urine Creatinine Urine Total Protein Vancomycin Trough Coronavirus (PCR) SARS-CoV-2 IgG Ab 08/01/20 08/01/20 08/02/20 17:14 23:21 04:22 WBC RBC Hgb Hct MCH MCHC RDW Plt Count Lymph % (Auto) Lymph # (Auto) Seg Neutrophils % Seg Neuts % (Manual) Lymphocytes % (Manual) Eosinophils % (Manual) Nucleated RBC % Seg Neutrophils # Seg Neutrophils # Man Lymphocytes # (Manual) Eosinophils # (Manual) D-Dimer ABG pH 7.268 L POC ABG pCO2 56.6 H POC ABG pO2 ABG pO2 ABG HCO3 ABG O2 Saturation ABG Base Excess ABG Hemoglobin 8.4 L ABG Oxyhemoglobin ABG Sodium ABG Potassium 4.9 H ABG Chloride ABG Glucose 261 H Oxyhemoglobin Carboxyhemoglobin Sodium Potassium Chloride Carbon Dioxide BUN Creatinine Glucose POC Glucose 219 H 242 H Lactic Acid Calcium Ferritin AST ALT Lactate Dehydrogenase C-Reactive Protein Total Protein Albumin Triglycerides Arterial Blood Glucose 261 H Arterial Blood Ionized Calcium Urine Creatinine Urine Total Protein Vancomycin Trough Coronavirus (PCR) SARS-CoV-2 IgG Ab 08/02/20 08/02/20 08/02/20 05:05 06:37 06:37 WBC RBC 3.40 L Hgb 10.0 L Hct MCH MCHC RDW 16.2 H Plt Count 87 L Lymph % (Auto) Lymph # (Auto) Seg Neutrophils % Seg Neuts % (Manual) 82.0 H Lymphocytes % (Manual) 3.0 L Eosinophils % (Manual) Nucleated RBC % 2.0 H Seg Neutrophils # Seg Neutrophils # Man 9.0 H Lymphocytes # (Manual) 0.3 L Eosinophils # (Manual) D-Dimer ABG pH POC ABG pCO2 POC ABG pO2 ABG pO2 ABG HCO3 ABG O2 Saturation ABG Base Excess ABG Hemoglobin ABG Oxyhemoglobin ABG Sodium ABG Potassium ABG Chloride ABG Glucose Oxyhemoglobin Carboxyhemoglobin Sodium Potassium 5.3 H D Chloride Carbon Dioxide BUN 53 H Creatinine Glucose 267 H POC Glucose 254 H Lactic Acid Calcium 8.1 L Ferritin AST 43 H ALT 334 H Lactate Dehydrogenase C-Reactive Protein Total Protein 5.4 L D Albumin 1.9 L Triglycerides Arterial Blood Glucose Arterial Blood Ionized Calcium Urine Creatinine Urine Total Protein Vancomycin Trough Coronavirus (PCR) SARS-CoV-2 IgG Ab 08/02/20 08/02/20 06:37 11:34 WBC RBC Hgb Hct MCH MCHC RDW Plt Count Lymph % (Auto) Lymph # (Auto) Seg Neutrophils % Seg Neuts % (Manual) Lymphocytes % (Manual) Eosinophils % (Manual) Nucleated RBC % Seg Neutrophils # Seg Neutrophils # Man Lymphocytes # (Manual) Eosinophils # (Manual) D-Dimer ABG pH POC ABG pCO2 POC ABG pO2 ABG pO2 ABG HCO3 ABG O2 Saturation ABG Base Excess ABG Hemoglobin ABG Oxyhemoglobin ABG Sodium ABG Potassium ABG Chloride ABG Glucose Oxyhemoglobin Carboxyhemoglobin Sodium Potassium Chloride Carbon Dioxide BUN Creatinine Glucose POC Glucose 279 H Lactic Acid Calcium Ferritin AST ALT Lactate Dehydrogenase C-Reactive Protein Total Protein Albumin Triglycerides 717 H Arterial Blood Glucose Arterial Blood Ionized Calcium Urine Creatinine Urine Total Protein Vancomycin Trough Coronavirus (PCR) SARS-CoV-2 IgG Ab Chest x-ray: image reviewed (severely rotated to the left and suggesting chest tube advancement) Allied health notes reviewed: nursing
--- NOTE | 2020-08-02 15:59 | Progress Note ---
Assessment and Plan Assessment and plan: -Severe COVID-19 PNA -On vent. Sedated -ID following -- Acute hypoxic respiratory failure Mechanically ventilated --Right-sided pneumothorax Chest tube management as per equal opportunity assistant -- GERD (gastroesophageal reflux disease) cont Pantoprazole --SLE (systemic lupus erythematosus related syndrome) Continue home medications-hydroxychloroquine -- DVT prophylaxis Lovenox 30 mg twice daily -- Full code status brief History: 50-year-old female with a past medical history of asthma, hypertension, and lupus complains of generalized body weakness, fever and shortness of breath. Patient states the symptoms started right after she was discharged from [facility] on 07/05. She has associated wheezing, fever, cough and she has been using her inhalers with no significant effect. She also has associated diarrhea. Of note, she was hospitalized here in [facility] on 06/28 for asthma exacerbation and had a negative Covid test during the admission. She was treated and discharged. S he presented to [facility] for further evaluation after discharge from here and over there, she was found to have positive COVID-19 test and she was placed on steroids and subsequently discharged on Eliquis prophylaxis for DVT. She states that she did not receive remdesivir during the admission. She was discharged from [facility] on 07/05. She went home and felt worse. She said that she passed out about 2 times. Due to persistent symptoms, she called EMS who brought her to [facility] for further evaluation. Daily course: 07/07. Patient seen and examined at bedside this morning. Patient is wheezing and slightly short of breath. Change steroids to Solu-Medrol 60 every 6. Added formoterol and budesonide. ID evaluation pending. Started patient on remdesivir as she is short of breath. 07/07: Placed on BIPAP this AM. Will need pulm evaluation. Solumedrol 60mg q6. STAT blood gas ordered. She will be transferred to [facility]. 07/08: Patient took oxygen off and attempts to go to the bathroom and subseque ntly became hypoxemic with sats down into the low 80s. Patient became weak short of breath. After that time patient had persistent coughing and cannot maintain sats until nonrebreather was placed. Patient is transferred to the ICU unit and monitored for respiratory failure possibly requiring intubation. 07/09: ID recommended for convalescent plasma, ordered. Patient intubated overnight. Continue to monitor clinically, scheduled lab, follow inflammatory markers 07/10: Wait for convalescent plasma transfusion, wean off from ventilator as tolerated 07/11: Called patient's daughter and updated. Continue to wean off vent as tolerated, continue tube feeding, monitor vital sign CBC BMP daily. 07/12: remains intubated and sedated. follow inflammatory markers - wean off vent as tolerated 07/13: wean off vent as tolerated, cxr in the am. reviewed vitals 07/14: remains intubated, has not received convalescent plasma yet. Reviewed vitals, tolerating tube feeding. Wean off vent per critical care as tolerated. 07/15: cont to provide supportive care, wean off vent as tolerated - difficult to wean off. 07/16: CXR findings improving, cont to wean off vent 07/17: Follow inflammatory markers, monitor off antibiotics. Wean off vent per pulmonary as tolerated 07/18: Wean off vent per pulmonary as tolerated,Follow inflammatory markers, monitor off antibiotics. 07/19: Wean off vent per pulmonary as tolerated,Follow inflammatory markers, monitor off antibiotics. SBT trial 07/20: Wean off vent as tolerated, continue supportive care, follow inflammatory markers 07/21: continue supportive care, follow inflammatory markers, wean off vent as tolerated 07/22: Continue to wean off from ventilator as tolerated per pulmonary recommendation, follow inflammatory markers. Repeat CBC BMP in the morning. We will repeat Covid test tomorrow to see if patient cleared the infection. 07/23. Continue to wean off from ventilator as tolerated per pulmonary recommendation, follow inflammatory markers. Currently AC mode, rate 16, tidal volume 450 with FiO2 75%vand PEEP 14 07/24/2020. Continue ventilatory support with AC mode, rate 16, tidal volume 450, FiO2 100% and PEEP of 16. Continue Brovana and Pulmicort. Continue IV steroids 40 mg IV every 8 hours. Anticoagulation with Lovenox 30 mg twice daily. Patient currently sedated with Versed and fentanyl. 07/25/2020. Continue ventilatory support with AC mode, rate 16, tidal volume 450, FiO2 75% and PEEP of 16. Continue Brovana and Pulmicort. Continue IV ster oids 40 mg IV every 8 hours. Anticoagulation with Lovenox 30 mg twice daily. Patient currently sedated with Versed and fentanyl. Continue to wean per pulmonary recommendations. 07/26/2020. Continue ventilatory support with AC mode, rate 16, tidal volume 450, FiO2 85% and PEEP of 16. Continue Brovana and Pulmicort. Continue IV steroids 40 mg IV every 8 hours. Anticoagulation with Lovenox 30 mg twice daily. Patient currently sedated with Versed and fentanyl. Continue to wean per protocol. 07/27/2020. Continue ventilatory support with AC mode, rate 16, tidal volume 450, FiO2 100% and PEEP of 16. Patient with increased oxygen requirements the past couple of days. Continue Brovana and Pulmicort. Continue IV steroids 40 mg IV every 8 hours. Anticoagulation with Lovenox 30 mg twice daily. Patient currently sedated with Versed and fentanyl. Dose of Lasix given by pulmonary yesterday to achieve negative fluid balance. Follow-up serial chest x-ray 07/28/2020. Continue ventilatory support with AC mode, rate 16, tidal volume 450, FiO2 100% and PEEP of 16. Wean FiO2 per protocol. Continue Brovana and Pulmicort. Continue IV steroids 40 mg IV every 8 hours. Anticoagulation with Lovenox 30 mg twice daily. Patient currently sedated with Versed and fentanyl. 07/29/2020. Continue ventilatory support with AC mode, rate 16, tidal volume 450, FiO2 100% and PEEP of 16. Wean FiO2 per protocol. Continue Brovana and Pulmicort. Continue IV steroids 40 mg IV every 8 hours. Anticoagulation with Lovenox 30 mg twice daily. Wean sedation as tolerated. 07/30. Continue ventilatory support with AC mode, rate 16, tidal volume 450, FiO2 100% and PEEP of 16. Wean FiO2 per protocol. Continue Brovana and Pulmicort. Continue IV steroids 40 mg IV every 8 hours. Anticoagulation with Lovenox 30 mg twice daily. Wean sedation as tolerated. 07/31. Still ventilated. On sedatives. Renal function worse today. nephrology has been consulted. Started patient on IV hydration. BC - GN rods and staph aureus. She is on vancomycin. 08/01. Still ventilated. On sedatives. Renal function worse today. nephrology has been consulted. Started patient on IV hydration. BC - GN rods and staph aureus. She is on vancomycin. 08/02. Chest xray shows worsening pneumothorax. Chest tube in place. 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 The aggregate critical care time was [32] minutes. This time is in addition to time spent performing reported procedures but includes the following: [x] Data Review and interpretation [x] Patient assessment and monitoring of vital signs [x] Documentation [x] Medication orders and management - Patient Problems (1) COVID-19 Current Visit: Yes Status: Acute (2) Acute respiratory failure Current Visit: No Status: Acute Qualifiers: Respiratory failure complication: unspecified whether with hypoxia or hypercapnia Qualified Code(s): J96.00 - Acute respiratory failure, unspecified whether with hypoxia or hypercapnia (3) GERD (gastroesophageal reflux disease) Current Visit: No Status: Chronic Qualifiers: Esophagitis presence: without esophagitis Qualified Code(s): K21.9 - Gastro-esophageal reflux disease without esophagitis (4) SLE (systemic lupus erythematosus related syndrome) Current Visit: No Status: Chronic (5) DVT prophylaxis Current Visit: No Status: Acute (6) Full code status Current Visit: No Status: Acute History Interval history: Nonresponsive On sedatives Intubated Hospitalist Physical - Physical exam Narrative exam: VITAL SIGNS: Reviewed. GENERAL: Sedated and intubated HEAD: No signs of head trauma. EYES: Pupils are equal. Extraocular motions intact. MOUTH: Oropharynx is normal. NECK: No adenopathy, no JVD. CHEST: Diffuse expiratory wheezes CARDIAC: Normal S1 and S2, without murmurs, gallops, or rubs. VASCULAR: trace edema ABDOMEN: Soft, non tender and non distended. Bowel Sounds normal. NEUROLOGIC EXAM: Sedated SKIN: No obvious lesions - Constitutional Vitals: Temp Pulse Resp BP Pulse Ox 98.0 F 71 29 H 117/61 96 08/02/20 08:00 08/02/20 13:00 08/02/20 13:00 08/02/20 13:00 08/02/20 13:00 Results - Labs CBC & Chem 7: 08/02/20 06:37 08/02/20 06:37 Labs: Laboratory Last Values WBC 11.0 K/mm3 (4.5-11.0) 08/02/20 06:37 RBC 3.40 M/mm3 (3.65-5.03) L 08/02/20 06:37 Hgb 10.0 gm/dl (10.1-14.3) L 08/02/20 06:37 Hct 31.5 % (30.3-42.9) D 08/02/20 06:37 MCV 93 fl (79-97) 08/02/20 06:37 MCH 29 pg (28-32) 08/02/20 06:37 MCHC 32 % (30-34) 08/02/20 06:37 RDW 16.2 % (13.2-15.2) H 08/02/20 06:37 Plt Count 87 K/mm3 (140-440) L 08/02/20 06:37 Lymph % (Auto) Mother Baby Rn 08/02/20 06:37 Elmore % (Auto) Mother Baby Rn 08/02/20 06:37 Eos % (Auto) Mother Baby Rn 08/02/20 06:37 Baso % (Auto) Mother Baby Rn 08/02/20 06:37 Lymph # (Auto) Mother Baby Rn 08/02/20 06:37 Elmore # (Auto) Mother Baby Rn 08/02/20 06:37 Eos # (Auto) Mother Baby Rn 08/02/20 06:37 Baso # (Auto) Mother Baby Rn 08/02/20 06:37 Add Manual Diff Complete 08/02/20 06:37 Total Counted 100 08/02/20 06:37 Seg Neutrophils % Mother Baby Rn 08/02/20 06:37 Seg Neuts % (Manual) 82.0 % (40.0-70.0) H 08/02/20 06:37 Band Neutrophils % 6.0 % 08/02/20 06:37 Lymphocytes % (Manual) 3.0 % (13.4-35.0) L 08/02/20 06:37 Reactive Lymphs % (Man) 0 % 08/02/20 06:37 Monocytes % (Manual) 2.0 % (0.0-7.3) 08/02/20 06:37 Eosinophils % (Manual) 0 % (0.0-4.3) 08/02/20 06:37 Basophils % (Manual) 0 % (0.0-1.8) 08/02/20 06:37 Metamyelocytes % 0 % 08/02/20 06:37 Myelocytes % 7.0 % 08/02/20 06:37 Promyelocytes % 0 % 08/02/20 06:37 Blast Cells % 0 % 08/02/20 06:37 Nucleated RBC % 2.0 % (0.0-0.9) H 08/02/20 06:37 Seg Neutrophils # Mother Baby Rn 08/02/20 06:37 Seg Neutrophils # Man 9.0 K/mm3 (1.8-7.7) H 08/02/20 06:37 Band Neutrophils # 0.7 K/mm3 08/02/20 06:37 Lymphocytes # (Manual) 0.3 K/mm3 (1.2-5.4) L 08/02/20 06:37 Abs React Lymphs (Man) 0.0 K/mm3 08/02/20 06:37 Monocytes # (Manual) 0.2 K/mm3 (0.0-0.8) 08/02/20 06:37 Eosinophils # (Manual) 0.0 K/mm3 (0.0-0.4) 08/02/20 06:37 Basophils # (Manual) 0.0 K/mm3 (0.0-0.1) 08/02/20 06:37 Metamyelocytes # 0.0 K/mm3 08/02/20 06:37 Myelocytes # 0.8 K/mm3 08/02/20 06:37 Promyelocytes # 0.0 K/mm3 08/02/20 06:37 Blast Cells # 0.0 K/mm3 08/02/20 06:37 WBC Morphology Not Reportable 08/02/20 06:37 Hypersegmented Neuts Not Reportable 08/02/20 06:37 Hyposegmented Neuts Not Reportable 08/02/20 06:37 Hypogranular Neuts Not Reportable 08/02/20 06:37 Smudge Cells Not Reportable 08/02/20 06:37 Toxic Granulation Not Reportable 08/02/20 06:37 Toxic Vacuolation Not Reportable 08/02/20 06:37 Dohle Bodies Not Reportable 08/02/20 06:37 Pelger-Huet Anomaly Not Reportable 08/02/20 06:37 Svaanna Rods Not Reportable 08/02/20 06:37 Platelet Estimate Consistent w auto 08/02/20 06:37 Clumped Platelets Not Reportable 08/02/20 06:37 Plt Clumps, EDTA Not Reportable 08/02/20 06:37 Large Platelets Not Reportable 08/02/20 06:37 Giant Platelets Not Reportable 08/02/20 06:37 Platelet Satelliting Not Reportable 08/02/20 06:37 Plt Morphology Comment Not Reportable 08/02/20 06:37 RBC Morphology Not Reportable 08/02/20 06:37 Dimorphic RBCs Not Reportable 08/02/20 06:37 Polychromasia Not Reportable 08/02/20 06:37 Hypochromasia Few 08/02/20 06:37 Poikilocytosis Not Reportable 08/02/20 06:37 Anisocytosis Not Reportable 08/02/20 06:37 Microcytosis Not Reportable 08/02/20 06:37 Macrocytosis Not Reportable 08/02/20 06:37 Spherocytes Not Reportable 08/02/20 06:37 Pappenheimer Bodies Not Reportable 08/02/20 06:37 Sickle Cells Not Reportable 08/02/20 06:37 Target Cells Not Reportable 08/02/20 06:37 Tear Drop Cells Not Reportable 08/02/20 06:37 Ovalocytes Not Reportable 08/02/20 06:37 Helmet Cells Not Reportable 08/02/20 06:37 [place] Bodies Not Reportable 08/02/20 06:37 [place] Rings Not Reportable 08/02/20 06:37 Kristan Cells Not Reportable 08/02/20 06:37 Bite Cells Not Reportable 08/02/20 06:37 Crenated Cell Not Reportable 08/02/20 06:37 Elliptocytes Not Reportable 08/02/20 06:37 Acanthocytes (Spur) Not Reportable 08/02/20 06:37 Rouleaux Not Reportable 08/02/20 06:37 Hemoglobin C Crystals Not Reportable 08/02/20 06:37 Schistocytes Not Reportable 08/02/20 06:37 Malaria parasites Not Reportable 08/02/20 06:37 Junaid Bodies Not Reportable 08/02/20 06:37 Hem Pathologist Commnt No 08/02/20 06:37 D-Dimer 2522.40 ng/mlDDU (0-234) H 07/31/20 14:14 ABG pH 7.268 (7.320-7.450) L 08/02/20 04:22 POC ABG pCO2 56.6 mmHg (32.0-48.0) H 08/02/20 04:22 ABG pCO2 81.7 mm Hg 07/28/20 04:15 POC ABG pO2 84.4 mmHg (83-108) 08/02/20 04:22 ABG pO2 130.3 mm Hg (80.0-90.0) H 07/28/20 04:15 POC ABG HCO3 25.3 08/02/20 04:22 ABG HCO3 40.9 mmol/L (20.0-26.0) H 07/28/20 04:15 ABG O2 Saturation 98.1 % (95.0-99.0) 07/28/20 04:15 ABG O2 Content 8.2 (0.0-44) 07/28/20 04:15 POC ABG Base Excess -1.9 08/02/20 04:22 ABG Base Excess 13.5 mmol/L (-2.0-3.0) H 07/28/20 04:15 ABG Hemoglobin 8.4 (12.0-17.5) L 08/02/20 04:22 ABG Oxyhemoglobin 98.4 (94-98) H 07/31/20 21:26 ABG Carboxyhemoglobin 1.7 % (0.0-5.0) 07/28/20 04:15 ABG Methemoglobin 0.3 (0.0-1.5) 07/31/20 21:26 ABG Sodium 136.4 mmol/L (136.0-145.0) 08/02/20 04:22 ABG Potassium 4.9 mmol/L (3.40-4.50) H 08/02/20 04:22 ABG Chloride 106.0 mmol/L (98-107) 08/02/20 04:22 ABG Glucose 261 mg/dL (65-95) H 08/02/20 04:22 Oxyhemoglobin 95.8 % (95.0-99.0) 07/28/20 04:15 Carboxyhemoglobin 0.4 (0.5-1.5) L 07/31/20 21:26 FiO2 80 08/02/20 04:22 Sodium 137 mmol/L (137-145) 08/02/20 06:37 Potassium 5.3 mmol/L (3.6-5.0) H D 08/02/20 06:37 Chloride 104.7 mmol/L (98-107) 08/02/20 06:37 Carbon Dioxide 24 mmol/L (22-30) 08/02/20 06:37 Anion Gap 14 mmol/L 08/02/20 06:37 BUN 53 mg/dL (7-17) H 08/02/20 06:37 Creatinine 0.9 mg/dL (0.6-1.2) 08/02/20 06:37 Estimated GFR > 60 ml/min 08/02/20 06:37 BUN/Creatinine Ratio 59 % 08/02/20 06:37 Glucose 267 mg/dL (65-100) H 08/02/20 06:37 POC Glucose 279 mg/dL (70-105) H 08/02/20 11:34 Lactic Acid 1.80 mmol/L (0.7-2.0) 07/31/20 14:14 Calcium 8.1 mg/dL (8.4-10.2) L 08/02/20 06:37 Phosphorus 3.20 mg/dL (2.5-4.5) 07/08/20 16:13 Magnesium 2.20 mg/dL (1.7-2.3) 07/08/20 16:13 Ferritin 964.8 ng/mL (10.0-200.0) H 07/31/20 14:14 Total Bilirubin 0.30 mg/dL (0.1-1.2) 08/02/20 06:37 AST 43 units/L (5-40) H 08/02/20 06:37 ALT 334 units/L (7-56) H 08/02/20 06:37 Alkaline Phosphatase 83 units/L (35-129) 08/02/20 06:37 Lactate Dehydrogenase 585 units/L (91-180) H 07/31/20 14:14 C-Reactive Protein 49.00 mg/dL (0.00-1.30) H 07/31/20 14:14 Total Protein 5.4 g/dL (6.3-8.2) L D 08/02/20 06:37 Albumin 1.9 g/dL (3.9-5) L 08/02/20 06:37 Albumin/Globulin Ratio 0.5 % 08/02/20 06:37 Triglycerides 717 mg/dL (2-149) H 08/02/20 06:37 Procalcitonin 119.84 ng/mL (<0.15) 07/30/20 17:43 Arterial Blood Glucose 261 mg/dL (65-95) H 08/02/20 04:22 Arterial Blood Ionized Calcium 4.7 mg/dL (4.6-5.3) 08/02/20 04:22 Urine Color Yellow (Yellow) 07/11/20 09:30 Urine Turbidity Clear (Clear) 07/11/20 09:30 Urine pH 5.0 (5.0-7.0) 07/11/20 09:30 Ur Specific [place] 1.028 (1.003-1.030) 07/11/20 09:30 Urine Protein <15 mg/dl mg/dL (Negative) 07/11/20 09:30 Urine Glucose (UA) Neg mg/dL (Negative) 07/11/20 09:30 Urine Ketones Neg mg/dL (Negative) 07/11/20 09:30 Urine Blood Neg (Negative) 07/11/20 09:30 Urine Nitrite Neg (Negative) 07/11/20 09:30 Urine Bilirubin Neg (Negative) 07/11/20 09:30 Urine Urobilinogen 2.0 mg/dL (<2.0) 07/11/20 09:30 Ur Leukocyte Esterase Neg (Negative) 07/11/20 09:30 Urine WBC (Auto) 1.0 /HPF (0.0-6.0) 07/11/20 09:30 Urine RBC (Auto) 1.0 /HPF (0.0-6.0) 07/11/20 09:30 U Epithel Cells (Auto) 1.0 /HPF (0-13.0) 07/11/20 09:30 Urine Mucus Few /HPF 07/11/20 09:30 Urine Creatinine 89.2 mg/dL (0.1-20.0) H 07/31/20 16:00 Urine Sodium 26 mmol/L 07/31/20 16:00 Urine Total Protein 108 mg/dL (5-11.8) H 07/31/20 16:00 Vancomycin Trough 28.2 ug/mL (5.0-20.0) H 07/31/20 14:14 Random Vancomycin 7.9 ug/mL (0-40.0) 08/02/20 06:37 Coronavirus (PCR) Positive (Negative) A 07/23/20 Unknown SARS-CoV-2 IgG Ab Reactive (NonReactive) A 07/15/20 14:30 Blood Type O POSITIVE 07/09/20 15:30 Antibody Screen Negative 07/09/20 15:30 Microbiology: Microbiology 07/30/20 17:43 Peripheral/Venous Blood Culture - Preliminary NO GROWTH AFTER 48 HOURS 07/30/20 17:43 Peripheral/Venous Blood Culture - Preliminary NO GROWTH AFTER 48 HOURS 07/27/20 14:18 Peripheral/Venous Blood Culture - Final NO GROWTH AFTER 5 DAYS 07/27/20 14:18 Peripheral/Venous Blood Culture - Final NO GROWTH AFTER 5 DAYS 07/30/20 12:58 Tracheal Aspirate Sputum Culture - Final Methicillin Resist S. Aureus Escherichia Coli 07/30/20 16:35 Nares - Right MRSA Culture - Final 07/12/20 09:52 Tracheal Aspirate Sputum Culture - Final 07/08/20 15:00 Tracheal Aspirate Sputum Culture - Final - Diagnostic Impressions Diagnostic Impressions: Echocardiogram 07/19/20 13:13 Transthoracic Echocardiogram Indication: CHF BP: 106/58 Conclusions *The left ventricular systolic function is within normal limits. There are no wall motion abnormalities observed. *The estimated ejection fraction is 60-65%. *Normal left ventricular diastolic filling is observed. Findings Procedure Info: The study quality is fair. Left Ventricle: The left ventricular chamber size, wall thickness and systolic function are within normal limits. There are no wall motion abnormalities observed. Ejection fraction is normal. The estimated ejection fraction is 60-65%. Normal left ventricular diastolic filling is observed. Left Atrium: The left atrium is normal in size with no visual thrombus identified. Right Ventricle: The right ventricular chamber size and systolic function are within normal limits. Right Atrium: The right atrium appears normal. Aortic Valve: The aortic valve is trileaflet. The leaflets are thin with normal excursion. There is no aortic stenosis or regurgitation present. Mitral Valve: The mitral valve leaflets are mildly thickened. There is trace of mitral regurgitation. There is no evidence of mitral stenosis. Tricuspid Valve: The tricuspid valve leaflets are normal. There is trace tricuspid regurgitation. The right ventricular systolic pressure is calculated at 14 mmHg. There is no tricuspid stenosis. Pulmonic Valve: The pulmonic valve appears normal. There is mild pulmonic regurgitation. There is no pulmonic stenosis. Pericardium: The pericardium appears normal. Aorta: The aorta appears normal. Pulmonary Artery: The main pulmonary artery appears normal. Venous: The inferior vena cava appears normal in size. There is a greater than 50% respiratory change in the inferior vena cava dimension. Measurements Chambers 2D Name Value Normal Range IVSd (2D) 1.08 cm (0.6 - 1.1) LVPWd (2D) 0.91 cm (0.6 - 1.1) LVIDd (2D) 4.61 cm (3.7 - 5.6) LVIDs (2D) 3.12 cm (2 - 3.8) LV FS (2D) 32.38 % - EF Teichholz (2D) 60.72 % - Ao root diameter (2D) 3.01 cm (2 - 3.7) Volumes/Mass Name Value Normal Range LA ESV SP 4CH (A/L) 57.18 ml - LA ESV SP 2CH (A/L) 62.63 ml - LA ESV BP (A/L) 60.68 ml - LA ESV BP (A/L) index 28.22 ml/m2 - LA ESV SP 4CH (MOD) 51.17 ml - LA ESV SP 2CH (MOD) 57.8 ml - LA ESV BP (MOD) 54.73 ml - LA ESV BP (MOD) index 25.45 ml/m2 - LV EDV SP 4CH (MOD) 115.34 ml - LV ESV SP 4CH (MOD) 43.26 ml - EF SP 4CH (MOD) 62.5 % - LV EDV SP 2CH (MOD) 43.71 ml - LV ESV SP 2CH (MOD) 17.14 ml - EF SP 2CH (MOD) 60.79 % - LV EDV BP 73.15 ml - LV ESV BP 27.92 ml - BP EF (MOD) 61.83 % - Diastolic/Systolic Function Name Value Normal Range MV E-wave Vmax 0.88 m/sec - MV deceleration time 157.66 msec - MV A-wave Vmax 0.91 m/sec - MV E:A ratio 0.96 ratio - Aortic Valve Name Value Normal Range AV Vmax 1.54 m/sec - AV VTI 31.46 cm - AV peak gradient 9.51 mmHg - AV mean gradient 5.1 mmHg - LVOT diameter 1.95 cm - LVOT Vmax 1.21 m/sec - LVOT VTI 27.59 cm - LVOT peak gradient 5.83 mmHg - LVOT mean gradient 3.3 mmHg - SV LVOT 82.76 ml - SMITH (continuity Vmax) 2.35 cm2 - SMITH (continuity VTI) 2.63 cm2 - Ascending Ao 2.94 cm - Tricuspid Valve Name Value Normal Range TV E-wave Vmax 0.49 m/sec - TR Vmax 1.72 m/sec - TR peak gradient 11.86 mmHg - RAP 3 mmHg - RVSP 14 mmHg - IVC diameter 1.91 cm (1.2 - 2.3) Pulmonic Valve/Qp:Qs Name Value Normal Range PV Vmax 0.94 m/sec - PV peak gradient 3.54 mmHg - [place] end-diastolic Vmax 0.54 m/sec - RVOT Vmax 0.68 m/sec - RVOT VTI 13.18 cm - RVOT peak gradient 1.82 mmHg - PV acceleration time 117.98 msec - Te[place]/IV: Voiding Method Indwelling Catheter IV Catheter Type [Left Upper PICC Line arm] IV Catheter Type [Right INT / Saline Lock Forearm] IV Catheter Type [Left Wrist] INT / Saline Lock IV Catheter Type [Left Hand] Peripheral IV Active Medications - Current Medications Current Medications: Generic Name Dose Route Start Last Admin Trade Name Freq PRN Reason Stop Dose Admin Acetaminophen 650 mg 07/06/20 13:39 07/27/20 18:34 Tylenol PO 650 mg Q4H PRN Administration Pain MILD(1-3)/Fever >100.5/WILLETT Albuterol/Ipratropium 1 ampul 07/26/20 14:00 08/02/20 09:47 Duoneb *Not For Prn Use* IH Not Given TIDRT ROMMEL Alprazolam 0.5 mg 07/07/20 12:28 07/27/20 03:15 Xanax PO 0.5 mg Q8H PRN Administration Anxiety Lipase/Protease/Amylase 1 each 07/08/20 14:50 Pancremaria del rosario Price 10,500 Unit FEEDTUBE PRN PRN For Clogged Feeding Tube Arformoterol Tartrate 15 mcg 07/07/20 09:15 08/02/20 09:47 Brovana Nebu IH 15 mcg Q12HRT ROMMEL Administration Ascorbic Acid 500 mg 07/08/20 22:00 08/02/20 10:42 Vitamin C PO 500 mg BID ROMMEL Administration Aspirin 81 mg 07/06/20 14:00 08/02/20 10:42 Baby Aspirin PO 81 mg QDAY ROMMEL Administration Budesonide 0.5 mg 07/07/20 09:15 08/02/20 09:47 Pulmicort IH 0.5 mg Q12HRT ROMMEL Administration Chlordiazepoxide HCl 75 mg 07/30/20 13:00 08/02/20 12:58 Librium PO 75 mg Q8H ROMMEL Administration Dextrose 50 ml 07/12/20 16:58 D50w (25gm) Syringe IV Q30MIN PRN Hypoglycemia Protocol Docusate Sodium 100 mg 07/16/20 22:00 08/02/20 10:42 Colace PO 100 mg BID ROMMEL Administration Enoxaparin Sodium 30 mg 07/06/20 15:00 08/02/20 10:42 Enoxaparin SUB-Q 30 mg BID ROMMEL Administration Protocol Fentanyl 50 mcg 07/08/20 13:16 07/29/20 15:45 Sublimaze IV 50 mcg Q10MIN PRN Administration ANALGESIA Gabapentin 600 mg 07/25/20 14:00 08/02/20 13:01 Gabapentin PO 600 mg Q8HR ROMMEL Administration Hydrophilic Ointment 1 applic 07/08/20 13:16 07/22/20 23:01 Vaseline Lip Therapy TP 1 applic Q2HR PRN Administration Dry Lips Hydroxychloroquine Sulfate 200 mg 07/07/20 10:00 08/02/20 10:42 Plaquenil PO 200 mg QDAY ROMMEL Administration Fentanyl Citrate 2,000 mcg in 100 mls @ 4.825 mls/hr 07/08/20 14:00 08/02/20 12:18 Fentanyl Drip Premix IV 4 mcg/kg/hr TITR ROMMEL 19.3 mls/hr Administration Protocol 1 MCG/KG/HR Midazolam HCl 100 mg/ Sodium 100 mls @ 2 mls/hr 07/08/20 15:00 08/02/20 03:37 Chloride IV 8 mg/hr TITR ROMMEL 8 mls/hr Administration Protocol 2 MG/HR Sodium Chloride 500 mls @ 10 mls/hr 07/15/20 15:00 Nacl 0.9% 500 Ml IV DIRECT ROMMEL Norepinephrine 4 mg in 250 mls @ 7.5 mls/hr 07/27/20 05:00 Levophed Drip 4 Mg/Ns 250 Ml IV TITR ROMMEL Protocol 2 MCG/MIN Vasopressin 20 unit/ Sodium 101 mls @ 9.09 mls/hr 07/30/20 13:00 08/02/20 07:54 Chloride IV 0.03 units/min TITR ROMMEL 9.09 mls/hr Administration Protocol 0.03 UNITS/MIN Phenylephrine HCl 100 mg/ 100 mls @ 3 mls/hr 07/30/20 15:00 08/02/20 07:53 Sodium Chloride IV 60 mcg/min TITR ROMMEL 3.6 mls/hr Administration Protocol 50 MCG/MIN Sodium Chloride 1,000 mls @ 75 mls/hr 07/31/20 08:30 08/02/20 10:30 Nacl 0.9% 1000 Ml IV 75 mls/hr DIRECT ROMMEL Administration Propofol 1,000 mg in 100 mls @ 2.946 mls/hr 07/31/20 20:00 08/02/20 14:18 Diprivan 10 Mg/Ml IV 50 mcg/kg/min DIRECT ROMMEL 29.46 mls/hr Administration Protocol 5 MCG/KG/MIN Dopamine HCl/Dextrose 800 mg in 250 mls @ 3.679 mls/hr 07/31/20 22:00 Intropin Drip 800 Mg/D5w 250 Ml IV TITR ROMMEL Protocol 2 MCG/KG/MIN Ceftriaxone Sodium 2 gm in 100 mls @ 200 mls/hr 08/02/20 10:00 08/02/20 10:35 Rocephin/Ns 2 Gm/100 Ml IV 200 mls/hr Q24HR ROMMEL Administration Protocol Vancomycin HCl 1,500 mg/ 530 mls @ 333.333 mls/hr 08/02/20 10:00 08/02/20 10:31 Sodium Chloride IV 333.333 mls/hr Q12HR ROMMEL Administration Insulin Glargine 12 units 08/02/20 15:55 Lantus SUB-Q Q24H ROMMEL Insulin Human Regular 0 unit 08/01/20 00:00 08/02/20 12:57 Humulin R SUB-Q 4 unit Q6HR ROMMEL Administration Protocol Lansoprazole 30 mg 07/10/20 10:00 08/02/20 10:42 Prevacid Solutab FEEDTUBE 30 mg QDAY ROMMEL Administration Methylprednisolone Sodium Succinate 40 mg 07/22/20 14:00 08/02/20 13:01 Solu-Medrol IV 40 mg Q8H ROMMEL Administration Metoclopramide HCl 10 mg 08/02/20 09:00 08/02/20 10:43 Reglan IV 08/03/20 03:01 10 mg Q6H ROMMEL Administration Multi-Ingred Cream/Lotion/Oil/Oint 1 applic 07/08/20 13:16 Artificial Tears Ophth Oint OU Q4HR PRN Dry Eye(s) Ondansetron HCl 4 mg 07/06/20 13:39 07/08/20 10:44 Zofran IV 4 mg Q8H PRN Administration Nausea And Vomiting Polyethylene Glycol 17 gm 07/29/20 12:00 08/02/20 10:42 Miralax 3350 PO 17 gm DAILY ROMMEL Administration Pseudoephedrine/Acetam/Chlorphenir 10 ml 07/07/20 01:17 07/08/20 08:30 Robitussin Ac PO 10 ml Q4H PRN Administration Cough Quetiapine Fumarate 200 mg 07/25/20 22:00 08/02/20 10:42 Seroquel PO 200 mg BID ROMMEL Administration Quetiapine Fumarate 100 mg 07/25/20 22:00 08/02/20 10:42 Seroquel PO 100 mg BID ROMMEL Administration Simple Syrup 15 ml 07/08/20 14:50 Simple Syrup FEEDTUBE PRN PRN Hypoglycemia Simple Syrup 30 ml 07/08/20 14:50 Simple Syrup FEEDTUBE PRN PRN Hypoglycemia Sodium Bicarbonate 325 mg 07/08/20 14:50 Sodium Bicarbonate FEEDTUBE PRN PRN For Clogged Feeding Tube Sodium Chloride 10 ml 07/06/20 14:00 08/02/20 10:53 Sodium Chloride Flush Syringe 10 Ml IV 10 ml BID ROMMEL Administration Sodium Chloride 10 ml 07/06/20 13:39 07/26/20 06:31 Sodium Chloride Flush Syringe 10 Ml IV 10 ml PRN PRN Administration LINE FLUSH Sodium Polystyrene Sulfonate 30 gm 08/02/20 14:00 Kionex PO 08/02/20 16:00 ONCE ROMMEL Venlafaxine HCl 37.5 mg 07/07/20 10:00 08/02/20 10:42 Effexor PO 37.5 mg DAILY ROMMEL Administration Zinc Sulfate 220 mg 07/08/20 22:00 08/02/20 10:42 Zinc Sulfate PO 220 mg BID ROMMEL Administration Nutrition/Malnutrition Assess - Dietary Evaluation Nutrition/Malnutrition Findings: Nutrition Notes Start: 07/08/20 14:02 Freq: Status: Active Protocol: Document 08/01/20 11:00 EN (Rec: 08/01/20 12:16 EN [id number]) Co-Sign 08/01/20 11:00 NHALL Nutrition Notes Initial or Follow up Reassessment Current Diagnosis Acute Kidney Injury, Hypertension,Heart Failure Other Pertinent Diagnosis Acute respiratory failure, COVID(+), GERD, Lupus, Anemia Current Diet Vital AF 1.2 at 55 mL/hr (goal rate) Labs/Tests Na 132 K+ 2.8 BUN 47 POC Glu 246 Pertinent Medications Diprivan Fentanyl Solu-medrol Humulin KCl Vitamin C Zinc Sulfate Height 5 ft 5 in Weight 98.1 kg [place] Body Weight (kg) 56.81 BMI 35.9 Weight change and time frame Wt change noted Weight Status Obese Subjective/Other Information F/u for TF tolerance. Pt remains on vent and is no longer proned. TF infusing at 20 ml/hr and pt tolerating well. RN reports pt had 4 BM last night and 1 BM this morning. Percent of energy/protein needs met: 36%/36% Burn Absent Trauma Absent GI Symptoms None Current % PO Negligible Minimum of two criteria No physical signs of malnutrition #1 Nutrition Diagnosis Inadequate oral intake Diagnosis Progress(for reassessment Continues documentation) Is patient on ventilator? Yes Is Patient Ambulatory and/or Out of Bed No REE-([facility]-confined to bed) 1937.676 Kcal/Kg value to use for calculation 17 Approximate Energy Requirements Using 1668 kcal/Kg Calculation Used for Recommendations Kcal/kg Additional Notes Pro: greater than 114 g (>2 g/ kg IBW) Fluid: 1ml/kcal or per MD Nutrition Intervention Change Diet Order: Continue TF Nutrition Support: Vital AF at 55 ml/hr Flush 75 ml q4h 16 hr prone: Vital AF 1.2 at 10 ml for 16hr . Flush 50 ml q4h. For remaining 8 hours, Vital AF 1.2 at 135 ml/hr. Flush 125 ml q4h. Kcal 1,584 Protein (gm) 99 Fluid (mL) 1,070 Goal #1 Meet at least 80% of protein and energy needs via TF Anticipated Discharge Needs: Cannot determine at this time Follow-Up By: 08/05/20 Additional Comments Follow for TF rate/tolerance and BM pattern
--- NOTE | 2020-08-02 16:13 | XRay Report ---
CHEST 1 VIEW 08/02/2020 3:52 PM INDICATION / CLINICAL INFORMATION: Evaluate chest tube position. COMPARISON: Chest one view from 08/01/2020. FINDINGS: SUPPORT DEVICES: The right chest tube has been advanced and terminates over the right ventricle. Othe rwise unchanged. HEART / MEDIASTINUM: Stable. LUNGS / PLEURA: Increased bilateral airspace opacities, particularly along the right lung base. No la rge pleural effusion. No pneumothorax. ADDITIONAL FINDINGS: Increased bilateral subcutaneous emphysema. IMPRESSION: 1. Interval advancement of the right chest tube. 2. Additional findings as above. Signer Name: Rolo Balderas MD Signed: 08/02/2020 4:09 PM Workstation Name: [id number]
--- NOTE | 2020-08-02 16:59 | Progress Note ---
Assessment and Plan Cultures: Blood culture 07/19/2020 no growth so far 12 1 tracheal aspirate cultures with staph aureus and E. coli A/P:50-year-old female with CHF, asthma, hypertension, lupus initially admitted with severe COVID-19, now febrile with possible VAP #Acute sepsis: Present with fevers and tachycardia. Possible source VAP #Acute hypoxic respiratory failure #Possible VAP: Chest x-ray not especially concerning, however worsening pulmonary status with associated fevers. Procalcitonin massively elevated even in the setting of acute renal injury. #Lupus: On Plaquenil. #CHF #Asthma #MAHOGANY: Possible in setting of vancomycin, improving Recs: -Continue vancomycin goal trough 10-20 for now. -ceftriaxone 2 g every 24 hours -Plan for 8 to 10 days of antibiotics depending on improvement. Dr. Quiñones taking over tomorrow Thank you for the consult, we will continue to follow. Robert Zeng MD [facility] ([facility]) O: [phone] F: [phone] Subjective Date of service: 08/02/20 Principal diagnosis: Ac hypoxemic resp failure; PNA; COVID-19 infxn; SLE; Asthma exacerbation Interval history: Afebrile, normal white count. Imaging personally viewed: Chest x-ray: Increasing opacities noted Objective - Exam Narrative Exam: Physical exam deferred due to PPE conservation strategy. Please refer to primary team's note. - Constitutional Vitals: Vital Signs Temp Pulse Resp BP Pulse Ox 98.4 F 70 30 H 128/71 95 08/02/20 16:00 08/02/20 16:01 08/02/20 16:01 08/02/20 16:01 08/02/20 16:00 Temperature -Last 24 Hours Temperature 98.4 F Temperature 97.7 F Temperature 98.0 F Temperature 99.8 F Temperature 99.2 F Temperature 97.7 F - Labs CBC & Chem 7: 08/02/20 06:37 08/02/20 06:37 Labs: Abnormal lab results 08/01/20 08/01/20 08/02/20 Range/Units 17:14 23:21 04:22 RBC (3.65-5.03) M/mm3 Hgb (10.1-14.3) gm/dl RDW (13.2-15.2) % Plt Count (140-440) K/mm3 Seg Neuts % (Manual) (40.0-70.0) % Lymphocytes % (Manual) (13.4-35.0) % Nucleated RBC % (0.0-0.9) % Seg Neutrophils # Man (1.8-7.7) K/mm3 Lymphocytes # (Manual) (1.2-5.4) K/mm3 ABG pH 7.268 L (7.320-7.450) POC ABG pCO2 56.6 H (32.0-48.0) mmHg ABG Hemoglobin 8.4 L (12.0-17.5) ABG Potassium 4.9 H (3.40-4.50) mmol/L ABG Glucose 261 H (65-95) mg/dL Potassium (3.6-5.0) mmol/L BUN (7-17) mg/dL Glucose (65-100) mg/dL POC Glucose 219 H 242 H (70-105) mg/dL Calcium (8.4-10.2) mg/dL AST (5-40) units/L ALT (7-56) units/L Total Protein (6.3-8.2) g/dL Albumin (3.9-5) g/dL Triglycerides (2-149) mg/dL Arterial Blood Glucose 261 H (65-95) mg/dL 08/02/20 08/02/20 08/02/20 Range/Units 05:05 06:37 06:37 RBC 3.40 L (3.65-5.03) M/mm3 Hgb 10.0 L (10.1-14.3) gm/dl RDW 16.2 H (13.2-15.2) % Plt Count 87 L (140-440) K/mm3 Seg Neuts % (Manual) 82.0 H (40.0-70.0) % Lymphocytes % (Manual) 3.0 L (13.4-35.0) % Nucleated RBC % 2.0 H (0.0-0.9) % Seg Neutrophils # Man 9.0 H (1.8-7.7) K/mm3 Lymphocytes # (Manual) 0.3 L (1.2-5.4) K/mm3 ABG pH (7.320-7.450) POC ABG pCO2 (32.0-48.0) mmHg ABG Hemoglobin (12.0-17.5) ABG Potassium (3.40-4.50) mmol/L ABG Glucose (65-95) mg/dL Potassium 5.3 H D (3.6-5.0) mmol/L BUN 53 H (7-17) mg/dL Glucose 267 H (65-100) mg/dL POC Glucose 254 H (70-105) mg/dL Calcium 8.1 L (8.4-10.2) mg/dL AST 43 H (5-40) units/L ALT 334 H (7-56) units/L Total Protein 5.4 L D (6.3-8.2) g/dL Albumin 1.9 L (3.9-5) g/dL Triglycerides (2-149) mg/dL Arterial Blood Glucose (65-95) mg/dL 08/02/20 08/02/20 Range/Units 06:37 11:34 RBC (3.65-5.03) M/mm3 Hgb (10.1-14.3) gm/dl RDW (13.2-15.2) % Plt Count (140-440) K/mm3 Seg Neuts % (Manual) (40.0-70.0) % Lymphocytes % (Manual) (13.4-35.0) % Nucleated RBC % (0.0-0.9) % Seg Neutrophils # Man (1.8-7.7) K/mm3 Lymphocytes # (Manual) (1.2-5.4) K/mm3 ABG pH (7.320-7.450) POC ABG pCO2 (32.0-48.0) mmHg ABG Hemoglobin (12.0-17.5) ABG Potassium (3.40-4.50) mmol/L ABG Glucose (65-95) mg/dL Potassium (3.6-5.0) mmol/L BUN (7-17) mg/dL Glucose (65-100) mg/dL POC Glucose 279 H (70-105) mg/dL Calcium (8.4-10.2) mg/dL AST (5-40) units/L ALT (7-56) units/L Total Protein (6.3-8.2) g/dL Albumin (3.9-5) g/dL Triglycerides 717 H (2-149) mg/dL Arterial Blood Glucose (65-95) mg/dL
[2020-08-02] MEDS: INSULIN GLARGINE 100 UNITS/ML SUB-Q SCH (17:06)
[2020-08-03] MEDS: INSULIN REGULAR, HUMAN 100 UNIT/ML 3ML VIAL SUB-Q SCH ×4 (00:18→17:50)
[2020-08-03] MEDS: fentaNYL DRIP Premix 2,000 MCG/100 ML BAG IV SCH ×5 (02:54→23:47)
[2020-08-03] MEDS: METOCLOPRAMIDE 10 MG/2 ML INJ IV SCH (02:54)
[2020-08-03] MEDS: SODIUM CHLORIDE 0.9% 1000 ML 1,000 ML IV SCH ×2 (04:18→20:52)
[2020-08-03] MEDS: MIDAZOLAM 100 MG in SODIUM CHLORIDE 0.9% 80 ML IV SCH ×2 (05:06→16:41)
[2020-08-03] MEDS: GABAPENTIN 300 MG CAP PO SCH ×3 (05:07→23:00)
[2020-08-03] MEDS: methylPREDNISolone Sod Succinate 40 MG/1 ML INJ IV SCH ×3 (05:07→23:00)
[2020-08-03] MEDS: chlordiazePOXIDE 25 MG CAP PO SCH ×3 (05:07→22:00)
[2020-08-03 05:42] LABS: Hematocrit 26.3 % (30.3-42.9); Hemoglobin 8.4 gm/dl (10.1-14.3); Mean Corpuscular HGB Conc 32 % (30-34); Mean Corpuscular Volume 93 fl (79-97); Platelet Count 149 K/mm3 (140-440); Red Blood Count 2.83 M/mm3 (3.65-5.03); Red Cell Distribution Width 16.4 % (13.2-15.2)
[2020-08-03 05:52] LABS: Alanine Aminotransferase 242 units/L (7-56); Albumin 2.2 g/dL (3.9-5); Blood Urea Nitrogen 39 mg/dL (7-17); Calcium 8.1 mg/dL (8.4-10.2); Hemolysis Index 26
[2020-08-03] MEDS: VASOPRESSIN 20 UNIT in SODIUM CHLORIDE 0.9% 100 ML IV SCH ×2 (05:53→16:40)
[2020-08-03 05:59] LABS: BUN/Creatinine Ratio 56
[2020-08-03 07:16] LABS: Band Neutrophils # (Manual) 0.4 K/mm3; Basophils % (Manual) 0 % (0.0-1.8); Myelocytes # (Manual) 3.2 K/mm3; Total Cells Counted 100
[2020-08-03 07:18] LABS: Anisocytosis 1+; Poikilocytosis 1+; Tear Drop Cells Few
[2020-08-03 07:19] LABS: Large Platelets Few; Platelet Estimate Consistent w Auto
[2020-08-03] MEDS: BUDESONIDE 0.5 MG/2 ML NEBU IH SCH ×2 (08:45→20:17)
[2020-08-03] MEDS: ARFORMOTEROL 15 MCG/2 ML NEBU IH SCH ×2 (08:45→20:17)
[2020-08-03] MEDS: IPRATROPIUM/ALBUTEROL SULFATE 3 ML AMPUL.NEB IH SCH ×3 (08:45→20:17)
[2020-08-03] MEDS: PHENYLEPHRINE 100 MG in SODIUM CHLORIDE 0.9% 90 ML IV SCH (09:51)
[2020-08-03] MEDS ORDERED: LIDOCAINE (1%) 10 MG/1 ML VIAL 20 ML MDV ONE (10:00)
[2020-08-03] MEDS: cefTRIAXone/NS 2 GM/100 ML 2 GM/100 ML BAG IV SCH (10:03)
[2020-08-03] MEDS: ENOXAPARIN 30 MG/0.3 ML INJ SUB-Q SCH ×2 (10:03→23:00)
[2020-08-03] MEDS: POLYETHYLENE GLYCOL 3350 17 GM POWDER PO SCH (10:03)
[2020-08-03] MEDS: QUEtiapine 200 MG TAB PO SCH (10:03)
[2020-08-03] MEDS: ZINC SULFATE 220 MG CAP PO SCH ×2 (10:04→23:00)
[2020-08-03] MEDS: ASCORBIC ACID 500 MG TAB PO SCH ×2 (10:04→23:00)
[2020-08-03] MEDS: HYDROXYCHLOROQUINE 200 MG TAB PO SCH (10:04)
[2020-08-03] MEDS: LANSOPRAZOLE 30 MG SOLUTAB FEEDTUBE SCH (10:04)
[2020-08-03] MEDS: DOCUSATE SODIUM 100 MG/10 ML ORAL LIQD PO SCH ×2 (10:04→23:00)
[2020-08-03] MEDS: ASPIRIN 81 MG TAB CHEW PO SCH (10:04)
[2020-08-03] MEDS: VENLAFAXINE 37.5 MG TAB PO SCH (10:10)
[2020-08-03] MEDS: QUEtiapine 100 MG TAB PO SCH ×2 (10:10→23:00)
[2020-08-03] MEDS: VANCOMYCIN 1,500 MG in SODIUM CHLORIDE 0.9% 500 ML 500 ML IV SCH ×2 (10:10→23:00)
--- NOTE | 2020-08-03 13:02 | XRay Report ---
CHEST 1 VIEW 12:46 PM INDICATION / CLINICAL INFORMATION: Chest tube. COMPARISON: Yesterday. FINDINGS: SUPPORT DEVICES: A right chest tube is again identified tip now near the midline of the lower chest. The positions of the endotracheal tube and nasogastric tube have not changed. HEART / MEDIASTINUM: A small pneumomediastinum is probably unchanged. The heart size is normal. LUNGS / PLEURA: Moderately severe diffuse bilateral parenchymal disease, right greater than left, abi ears mildly increased on the left. A small right pneumothorax is new or larger. A tiny left apical pn eumothorax is minimally larger/better seen. ADDITIONAL FINDINGS: Extensive bilateral subcutaneous emphysema has increased. IMPRESSION: 1. Small right pneumothorax and tiny left pneumothorax new or larger. 2. Pneumomediastinum is probably unchanged. Extensive bilateral subcutaneous emphysema has increased. 3. Diffuse bilateral parenchymal disease appears increased on the left. Signer Name: Manpreet Batres MD Signed: 08/03/2020 12:57 PM Workstation Name: [id number]
--- NOTE | 2020-08-03 13:47 | Progress Note ---
Assessment and Plan Acute hypoxemic respiratory failure, now on MVS Bilateral pneumonia, left greater than right lungs. COVID-19 infection. History of congestive heart failure. History of lupus erythematosus. Leukocytosis. Tobacco use disorder. Acute asthma exacerbation. History of hypertension. Obesity - discussed woith surgeon and she will evaluate re: PTX / Sub-Q emphysema - reduced peep to 16 (O2 sats 98%) - continue sedation and target RASS -2 to -3 acutely - keep chest tube to continuous wall suction - repeat ABG in am - growing E. Coli & MRSA from tracheal aspirate; continue and de-escalate AB's per ID recommendations - prognosis grave to guarded especially neurologic-rai - continue care as below otherwise; - wean Vasopressors for target MAP > 65 mmHg - continue Librium - repeat COVID-19 test is positive - continue systemic steroids - continue to wean supplemental oxygen for target O2 sat's > 92% - continue low dose SSI - continue Seroquel 300 mg p.o. bid - continue airborne and contact isolation - continue Zinc & Vit C supplementaion - complete Remdesivir - de-escalate AB's per ID rec's - continue systemic steroids for Asthma / severe COVID infection - continue Daily SAT and SBT assessment as tolerated - VAP bundle addressed - continue lung protective strategies - continue bronchodilators with pulmonary hygiene per RT - wean per pulmonary driven protocols otherwise - accuchecks with glycemic control per SSI (While critically ill target blood glucose of 140-180 mg/dL; avoid hypoglycemia) - sedation prn for target RASS -1 to -2 - avoid nephrotoxins, renally dose all medications - continue to avoid benzodiazepine's, reduce the possibility of delirium - prn analgesia per CPOT score - Maintenance of sleep-wake cycle, avoid delirium - continue enteral nutritional support at goal rate as tolerated - G.I. & VTE prophylaxis - PT/OT/ROM exercises - continue mobility protocols for pressure ulcer prophylaxis - Monitor hemodynamics closely - continue other care per attending / other consultants - discharge planning ongoing concurrently .... Re-evaluate in am & prn CONDITION: CRITICAL PROGNOSIS: GUARDED CODE STATUS: FULL CODE The high probability of a clinically significant, sudden or life-threatening deterioration of the [respiratory, cardiovascular & neurologic] system(s) required my full and direct attention, intervention and personal management. The aggregate critical care time was [37] minutes without overlap. Time includes spent on; [x] Data Review and interpretation [x] Patient assessment and monitoring of vital signs [x] Documentation [x] Medication orders and management Subjective Date of service: 08/03/20 Principal diagnosis: Ac hypoxemic resp failure; PNA; COVID-19 infxn; SLE; Asthma exacerbation Interval history: Patient is seen today for: Acute hypoxemic respiratory failure; Bilateral pneumonia; COVID-19 infection; H/O CHF; SLE; Acute asthma exacerbation. HTN; Obesity Seen and examined at bedside; 24hour events reviewed; nursing and respiratory care staff consulted; no adverse overnight events reported to me; resting peacefully in bed; remains on MVS; remains hypoxemin; chest tube leak is inc reased as is subcutaneous emphysema Objective Vital Signs - 12hr 08/03/20 08/03/20 08/03/20 02:01 02:15 02:31 Temperature Pulse Rate 84 84 86 Pulse Rate [ Bilateral Throughout] Pulse Rate [ From Monitor] Respiratory 24 24 27 H Rate Respiratory Rate [Bilateral Throughout] Blood Pressure 130/70 131/68 132/74 O2 Sat by Pulse 82 L 85 87 Oximetry 08/03/20 08/03/20 08/03/20 02:45 03:01 03:13 Temperature 97.9 F Pulse Rate 87 88 Pulse Rate [ Bilateral Throughout] Pulse Rate [ From Monitor] Respiratory 30 H 26 H Rate Respiratory Rate [Bilateral Throughout] Blood Pressure 125/72 129/72 O2 Sat by Pulse 87 93 Oximetry 08/03/20 08/03/20 08/03/20 03:15 03:31 03:45 Temperature Pulse Rate 87 86 85 Pulse Rate [ Bilateral Throughout] Pulse Rate [ From Monitor] Respiratory 30 H 31 H 30 H Rate Respiratory Rate [Bilateral Throughout] Blood Pressure 129/69 121/69 122/71 O2 Sat by Pulse 95 95 95 Oximetry 08/03/20 08/03/20 08/03/20 04:00 04:01 04:15 Temperature Pulse Rate 86 87 87 Pulse Rate [ Bilateral Throughout] Pulse Rate [ 87 From Monitor] Respiratory 30 H 28 H 31 H Rate Respiratory Rate [Bilateral Throughout] Blood Pressure 119/69 127/69 O2 Sat by Pulse 93 94 94 Oximetry 08/03/20 08/03/20 08/03/20 04:31 04:45 05:01 Temperature Pulse Rate 87 87 88 Pulse Rate [ Bilateral Throughout] Pulse Rate [ From Monitor] Respiratory 28 H 32 H 30 H Rate Respiratory Rate [Bilateral Throughout] Blood Pressure 124/69 124/67 122/71 O2 Sat by Pulse 94 93 94 Oximetry 08/03/20 08/03/20 08/03/20 05:03 05:15 05:31 Temperature Pulse Rate 87 89 87 Pulse Rate [ Bilateral Throughout] Pulse Rate [ From Monitor] Respiratory 28 H 29 H Rate Respiratory Rate [Bilateral Throughout] Blood Pressure 122/71 128/68 123/68 O2 Sat by Pulse 88 93 93 Oximetry 08/03/20 08/03/20 08/03/20 05:45 06:01 06:15 Temperature Pulse Rate 88 87 86 Pulse Rate [ Bilateral Throughout] Pulse Rate [ From Monitor] Respiratory 30 H 30 H 30 H Rate Respiratory Rate [Bilateral Throughout] Blood Pressure 119/70 119/67 120/68 O2 Sat by Pulse 94 95 94 Oximetry 08/03/20 08/03/20 08/03/20 06:31 06:45 07:01 Temperature Pulse Rate 86 86 87 Pulse Rate [ Bilateral Throughout] Pulse Rate [ From Monitor] Respiratory 30 H 30 H 30 H Rate Respiratory Rate [Bilateral Throughout] Blood Pressure 119/68 122/66 117/68 O2 Sat by Pulse 94 94 93 Oximetry 08/03/20 08/03/20 08/03/20 07:15 07:31 07:45 Temperature Pulse Rate 88 88 86 Pulse Rate [ Bilateral Throughout] Pulse Rate [ From Monitor] Respiratory 30 H 30 H 30 H Rate Respiratory Rate [Bilateral Throughout] Blood Pressure 117/67 119/70 117/68 O2 Sat by Pulse 94 93 94 Oximetry 08/03/20 08/03/20 08/03/20 08:00 08:01 08:15 Temperature 98.3 F Pulse Rate 76 86 85 Pulse Rate [ Bilateral Throughout] Pulse Rate [ 85 From Monitor] Respiratory 30 H 22 30 H Rate Respiratory Rate [Bilateral Throughout] Blood Pressure 124/70 122/69 O2 Sat by Pulse 93 94 95 Oximetry 08/03/20 08/03/20 08/03/20 08:31 08:42 08:45 Temperature Pulse Rate 85 85 85 Pulse Rate [ Bilateral Throughout] Pulse Rate [ From Monitor] Respiratory 30 H 31 H Rate Respiratory Rate [Bilateral Throughout] Blood Pressure 126/72 125/72 125/72 O2 Sat by Pulse 95 95 96 Oximetry 08/03/20 08/03/20 08/03/20 09:01 09:15 09:20 Temperature Pulse Rate 85 90 Pulse Rate [ 90 Bilateral Throughout] Pulse Rate [ From Monitor] Respiratory 17 8 L Rate Respiratory 30 H Rate [Bilateral Throughout] Blood Pressure 121/69 137/69 O2 Sat by Pulse 96 95 Oximetry 08/03/20 08/03/20 08/03/20 09:31 09:45 10:01 Temperature Pulse Rate 89 90 91 H Pulse Rate [ Bilateral Throughout] Pulse Rate [ From Monitor] Respiratory 10 L 9 L 9 L Rate Respiratory Rate [Bilateral Throughout] Blood Pressure 127/79 145/79 153/81 O2 Sat by Pulse 96 96 96 Oximetry 08/03/20 08/03/20 08/03/20 10:15 10:30 10:46 Temperature Pulse Rate 85 85 86 Pulse Rate [ Bilateral Throughout] Pulse Rate [ From Monitor] Respiratory 23 27 H 29 H Rate Respiratory Rate [Bilateral Throughout] Blood Pressure 141/74 129/75 125/69 O2 Sat by Pulse 98 98 98 Oximetry 08/03/20 08/03/20 08/03/20 11:00 11:16 11:30 Temperature Pulse Rate 85 84 84 Pulse Rate [ Bilateral Throughout] Pulse Rate [ From Monitor] Respiratory 30 H 30 H 30 H Rate Respiratory Rate [Bilateral Throughout] Blood Pressure 122/70 121/67 120/65 O2 Sat by Pulse 98 98 98 Oximetry 08/03/20 08/03/20 08/03/20 11:46 12:00 12:16 Temperature 98.7 F Pulse Rate 85 82 85 Pulse Rate [ Bilateral Throughout] Pulse Rate [ 87 From Monitor] Respiratory 30 H 30 H 30 H Rate Respiratory Rate [Bilateral Throughout] Blood Pressure 115/64 119/65 114/65 O2 Sat by Pulse 97 98 97 Oximetry 08/03/20 08/03/20 08/03/20 12:30 12:46 13:00 Temperature Pulse Rate 88 87 86 Pulse Rate [ Bilateral Throughout] Pulse Rate [ From Monitor] Respiratory 30 H 29 H 29 H Rate Respiratory Rate [Bilateral Throughout] Blood Pressure 120/65 119/64 111/63 O2 Sat by Pulse 96 97 97 Oximetry Constitutional: appears uncomfortable, other (middle aged obese female with mildly increased respiratory effort at rest on MVS) Eyes: non-icteric ENT: oropharynx moist, other (ETT 23cm YANET) Neck: supple, no lymphadenopathy, no JVD Effort: mildly labored Ascultation: Bilateral: diminished breath sounds, rhonchi, other (increasing upper chest / neck subQ emphysema) Percussion: Bilateral: not dull Cardiovascular: regular rate and rhythm, other (S1,S2) Gastrointestinal: normoactive bowel sounds, soft, non-tender, non-distended Integumentary: normal Extremities: no cyanosis, no edema, pulses normal, no ischemia or petechiae Neurologic: pupils equal and round, other (sedated) Psychiatric: other (unable to assess re: AMS / sedation) CBC and BMP: 08/03/20 04:49 08/03/20 04:49 ABG, PT/INR, D-dimer: ABG ABG pH 7.302 (7.320-7.450) L 08/03/20 01:25 POC ABG pCO2 56.0 mmHg (32.0-48.0) H 08/03/20 01:25 ABG pCO2 81.7 mm Hg 07/28/20 04:15 POC ABG pO2 39.6 mmHg (83-108) L 08/03/20 01:25 ABG pO2 130.3 mm Hg (80.0-90.0) H 07/28/20 04:15 POC ABG HCO3 27.1 08/03/20 01:25 ABG O2 Saturation 98.1 % (95.0-99.0) 07/28/20 04:15 PT/INR, D-dimer D-Dimer 2522.40 ng/mlDDU (0-234) H 07/31/20 14:14 Abnormal lab findings: Abnormal Labs 07/06/20 07/06/20 07/07/20 05:24 17:16 04:50 WBC 13.5 H 12.7 H RBC Hgb Hct MCH MCHC RDW Plt Count Lymph % (Auto) Lymph # (Auto) Seg Neutrophils % Seg Neuts % (Manual) 86.0 H 87.0 H Lymphocytes % (Manual) 6.0 L 9.0 L Eosinophils % (Manual) Nucleated RBC % Seg Neutrophils # Seg Neutrophils # Man 11.6 H 11.0 H Lymphocytes # (Manual) 0.8 L 1.1 L Eosinophils # (Manual) D-Dimer ABG pH POC ABG pCO2 POC ABG pO2 ABG pO2 ABG HCO3 ABG O2 Saturation ABG Base Excess ABG Hemoglobin ABG Oxyhemoglobin ABG Sodium ABG Potassium ABG Chloride ABG Glucose Oxyhemoglobin Carboxyhemoglobin Sodium Potassium Chloride Carbon Dioxide BUN Creatinine Glucose POC Glucose Lactic Acid Calcium Ferritin AST ALT Lactate Dehydrogenase 242 H C-Reactive Protein 7.30 H Total Protein Albumin Triglycerides Arterial Blood Glucose Arterial Blood Ionized Calcium Urine Creatinine Urine Total Protein Vancomycin Trough Coronavirus (PCR) SARS-CoV-2 IgG Ab 07/07/20 07/07/20 07/07/20 04:50 14:22 14:22 WBC RBC Hgb Hct MCH MCHC RDW Plt Count Lymph % (Auto) Lymph # (Auto) Seg Neutrophils % Seg Neuts % (Manual) Lymphocytes % (Manual) Eosinophils % (Manual) Nucleated RBC % Seg Neutrophils # Seg Neutrophils # Man Lymphocytes # (Manual) Eosinophils # (Manual) D-Dimer ABG pH POC ABG pCO2 POC ABG pO2 ABG pO2 ABG HCO3 ABG O2 Saturation ABG Base Excess ABG Hemoglobin ABG Oxyhemoglobin ABG Sodium ABG Potassium ABG Chloride ABG Glucose Oxyhemoglobin Carboxyhemoglobin Sodium Potassium Chloride Carbon Dioxide BUN 18 H Creatinine Glucose 138 H POC Glucose Lactic Acid Calcium Ferritin 228.2 H AST ALT Lactate Dehydrogenase 277 H C-Reactive Protein Total Protein 5.9 L Albumin 3.4 L Triglycerides Arterial Blood Glucose Arterial Blood Ionized Calcium Urine Creatinine Urine Total Protein Vancomycin Trough Coronavirus (PCR) SARS-CoV-2 IgG Ab 07/08/20 07/08/20 07/08/20 11:18 12:57 16:13 WBC RBC Hgb Hct MCH MCHC RDW Plt Count Lymph % (Auto) Lymph # (Auto) Seg Neutrophils % Seg Neuts % (Manual) Lymphocytes % (Manual) Eosinophils % (Manual) Nucleated RBC % Seg Neutrophils # Seg Neutrophils # Man Lymphocytes # (Manual) Eosinophils # (Manual) D-Dimer ABG pH POC ABG pCO2 POC ABG pO2 ABG pO2 39.3 L* ABG HCO3 ABG O2 Saturation 76.8 L ABG Base Excess ABG Hemoglobin ABG Oxyhemoglobin ABG Sodium ABG Potassium ABG Chloride ABG Glucose Oxyhemoglobin 75.3 L Carboxyhemoglobin Sodium Potassium Chloride Carbon Dioxide 20 L D BUN Creatinine Glucose 135 H POC Glucose 106 H Lactic Acid Calcium 8.0 L Ferritin AST ALT Lactate Dehydrogenase C-Reactive Protein Total Protein Albumin Triglycerides Arterial Blood Glucose Arterial Blood Ionized Calcium Urine Creatinine Urine Total Protein Vancomycin Trough Coronavirus (PCR) SARS-CoV-2 IgG Ab 07/08/20 07/08/20 07/09/20 17:04 18:45 04:00 WBC 15.6 H RBC Hgb Hct MCH MCHC RDW Plt Count Lymph % (Auto) 4.7 L Lymph # (Auto) 0.7 L Seg Neutrophils % Seg Neuts % (Manual) Lymphocytes % (Manual) Eosinophils % (Manual) Nucleated RBC % Seg Neutrophils # 14.2 H Seg Neutrophils # Man Lymphocytes # (Manual) Eosinophils # (Manual) D-Dimer ABG pH POC ABG pCO2 POC ABG pO2 ABG pO2 181.8 H ABG HCO3 ABG O2 Saturation 99.1 H ABG Base Excess ABG Hemoglobin 11.4 L ABG Oxyhemoglobin ABG Sodium ABG Potassium ABG Chloride ABG Glucose Oxyhemoglobin Carboxyhemoglobin Sodium Potassium Chloride Carbon Dioxide BUN Creatinine Glucose POC Glucose 117 H Lactic Acid Calcium Ferritin AST ALT Lactate Dehydrogenase C-Reactive Protein Total Protein Albumin Triglycerides Arterial Blood Glucose Arterial Blood Ionized Calcium Urine Creatinine Urine Total Protein Vancomycin Trough Coronavirus (PCR) SARS-CoV-2 IgG Ab 07/09/20 07/09/20 07/09/20 04:00 04:00 04:49 WBC RBC Hgb Hct MCH MCHC RDW Plt Count Lymph % (Auto) Lymph # (Auto) Seg Neutrophils % Seg Neuts % (Manual) Lymphocytes % (Manual) Eosinophils % (Manual) Nucleated RBC % Seg Neutrophils # Seg Neutrophils # Man Lymphocytes # (Manual) Eosinophils # (Manual) D-Dimer ABG pH POC ABG pCO2 POC ABG pO2 ABG pO2 ABG HCO3 26.2 H ABG O2 Saturation ABG Base Excess ABG Hemoglobin 11.2 L ABG Oxyhemoglobin ABG Sodium ABG Potassium ABG Chloride ABG Glucose Oxyhemoglobin 94.9 L Carboxyhemoglobin Sodium Potassium Chloride Carbon Dioxide BUN Creatinine Glucose 158 H POC Glucose Lactic Acid Calcium 8.2 L Ferritin 320.0 H AST ALT Lactate Dehydrogenase 391 H C-Reactive Protein 9.50 H Total Protein 5.9 L Albumin 3.2 L Triglycerides Arterial Blood Glucose Arterial Blood Ionized Calcium Urine Creatinine Urine Total Protein Vancomycin Trough Coronavirus (PCR) SARS-CoV-2 IgG Ab 07/09/20 07/09/20 07/09/20 11:56 17:49 23:39 WBC RBC Hgb Hct MCH MCHC RDW Plt Count Lymph % (Auto) Lymph # (Auto) Seg Neutrophils % Seg Neuts % (Manual) Lymphocytes % (Manual) Eosinophils % (Manual) Nucleated RBC % Seg Neutrophils # Seg Neutrophils # Man Lymphocytes # (Manual) Eosinophils # (Manual) D-Dimer ABG pH POC ABG pCO2 POC ABG pO2 ABG pO2 ABG HCO3 ABG O2 Saturation ABG Base Excess ABG Hemoglobin ABG Oxyhemoglobin ABG Sodium ABG Potassium ABG Chloride ABG Glucose Oxyhemoglobin Carboxyhemoglobin Sodium Potassium Chloride Carbon Dioxide BUN Creatinine Glucose POC Glucose 156 H 119 H 145 H Lactic Acid Calcium Ferritin AST ALT Lactate Dehydrogenase C-Reactive Protein Total Protein Albumin Triglycerides Arterial Blood Glucose Arterial Blood Ionized Calcium Urine Creatinine Urine Total Protein Vancomycin Trough Coronavirus (PCR) SARS-CoV-2 IgG Ab 07/10/20 07/10/20 07/10/20 03:32 05:26 11:22 WBC RBC Hgb Hct MCH MCHC RDW Plt Count Lymph % (Auto) Lymph # (Auto) Seg Neutrophils % Seg Neuts % (Manual) Lymphocytes % (Manual) Eosinophils % (Manual) Nucleated RBC % Seg Neutrophils # Seg Neutrophils # Man Lymphocytes # (Manual) Eosinophils # (Manual) D-Dimer ABG pH POC ABG pCO2 POC ABG pO2 ABG pO2 75.7 L ABG HCO3 27.5 H ABG O2 Saturation ABG Base Excess ABG Hemoglobin 9.3 L ABG Oxyhemoglobin ABG Sodium ABG Potassium ABG Chloride ABG Glucose Oxyhemoglobin 94.7 L Carboxyhemoglobin Sodium Potassium Chloride Carbon Dioxide BUN Creatinine Glucose POC Glucose 156 H 148 H Lactic Acid Calcium Ferritin AST ALT Lactate Dehydrogenase C-Reactive Protein Total Protein Albumin Triglycerides Arterial Blood Glucose Arterial Blood Ionized Calcium Urine Creatinine Urine Total Protein Vancomycin Trough Coronavirus (PCR) SARS-CoV-2 IgG Ab 07/10/20 07/10/20 07/10/20 12:10 12:10 18:20 WBC 14.1 H RBC 3.33 L Hgb 9.9 L Hct MCH MCHC RDW Plt Count Lymph % (Auto) Lymph # (Auto) Seg Neutrophils % Seg Neuts % (Manual) 89.0 H Lymphocytes % (Manual) 8.0 L Eosinophils % (Manual) Nucleated RBC % Seg Neutrophils # Seg Neutrophils # Man 12.5 H Lymphocytes # (Manual) 1.1 L Eosinophils # (Manual) D-Dimer ABG pH POC ABG pCO2 POC ABG pO2 ABG pO2 ABG HCO3 ABG O2 Saturation ABG Base Excess ABG Hemoglobin ABG Oxyhemoglobin ABG Sodium ABG Potassium ABG Chloride ABG Glucose Oxyhemoglobin Carboxyhemoglobin Sodium Potassium Chloride Carbon Dioxide BUN 21 H Creatinine Glucose 154 H POC Glucose 181 H Lactic Acid Calcium 8.0 L Ferritin AST ALT Lactate Dehydrogenase C-Reactive Protein Total Protein 5.4 L Albumin 3.0 L Triglycerides Arterial Blood Glucose Arterial Blood Ionized Calcium Urine Creatinine Urine Total Protein Vancomycin Trough Coronavirus (PCR) SARS-CoV-2 IgG Ab 07/10/20 07/11/20 07/11/20 23:51 04:05 05:43 WBC RBC Hgb Hct MCH MCHC RDW Plt Count Lymph % (Auto) Lymph # (Auto) Seg Neutrophils % Seg Neuts % (Manual) Lymphocytes % (Manual) Eosinophils % (Manual) Nucleated RBC % Seg Neutrophils # Seg Neutrophils # Man Lymphocytes # (Manual) Eosinophils # (Manual) D-Dimer ABG pH 7.348 L POC ABG pCO2 POC ABG pO2 ABG pO2 93.6 H ABG HCO3 28.5 H ABG O2 Saturation ABG Base Excess ABG Hemoglobin 10.1 L ABG Oxyhemoglobin ABG Sodium ABG Potassium ABG Chloride ABG Glucose Oxyhemoglobin Carboxyhemoglobin Sodium Potassium Chloride Carbon Dioxide BUN Creatinine Glucose POC Glucose 116 H 132 H Lactic Acid Calcium Ferritin AST ALT Lactate Dehydrogenase C-Reactive Protein Total Protein Albumin Triglycerides Arterial Blood Glucose Arterial Blood Ionized Calcium Urine Creatinine Urine Total Protein Vancomycin Trough Coronavirus (PCR) SARS-CoV-2 IgG Ab 07/11/20 07/11/20 07/11/20 09:11 09:11 09:11 WBC 15.8 H RBC 3.44 L Hgb Hct MCH MCHC RDW Plt Count Lymph % (Auto) Lymph # (Auto) Seg Neutrophils % Seg Neuts % (Manual) 92.0 H Lymphocytes % (Manual) 4.0 L Eosinophils % (Manual) Nucleated RBC % Seg Neutrophils # Seg Neutrophils # Man 14.5 H Lymphocytes # (Manual) 0.6 L Eosinophils # (Manual) D-Dimer 360.61 H ABG pH POC ABG pCO2 POC ABG pO2 ABG pO2 ABG HCO3 ABG O2 Saturation ABG Base Excess ABG Hemoglobin ABG Oxyhemoglobin ABG Sodium ABG Potassium ABG Chloride ABG Glucose Oxyhemoglobin Carboxyhemoglobin Sodium Potassium Chloride 107.1 H Carbon Dioxide BUN 22 H Creatinine Glucose 149 H POC Glucose Lactic Acid Calcium 7.8 L Ferritin AST ALT Lactate Dehydrogenase 483 H C-Reactive Protein 2.30 H Total Protein 4.9 L Albumin 3.0 L Triglycerides Arterial Blood Glucose Arterial Blood Ionized Calcium Urine Creatinine Urine Total Protein Vancomycin Trough Coronavirus (PCR) SARS-CoV-2 IgG Ab 07/11/20 07/11/20 07/11/20 09:11 12:16 17:55 WBC RBC Hgb Hct MCH MCHC RDW Plt Count Lymph % (Auto) Lymph # (Auto) Seg Neutrophils % Seg Neuts % (Manual) Lymphocytes % (Manual) Eosinophils % (Manual) Nucleated RBC % Seg Neutrophils # Seg Neutrophils # Man Lymphocytes # (Manual) Eosinophils # (Manual) D-Dimer ABG pH POC ABG pCO2 POC ABG pO2 ABG pO2 ABG HCO3 ABG O2 Saturation ABG Base Excess ABG Hemoglobin ABG Oxyhemoglobin ABG Sodium ABG Potassium ABG Chloride ABG Glucose Oxyhemoglobin Carboxyhemoglobin Sodium Potassium Chloride Carbon Dioxide BUN Creatinine Glucose POC Glucose 157 H 166 H Lactic Acid Calcium Ferritin 371.2 H AST ALT Lactate Dehydrogenase C-Reactive Protein Total Protein Albumin Triglycerides Arterial Blood Glucose Arterial Blood Ionized Calcium Urine Creatinine Urine Total Protein Vancomycin Trough Coronavirus (PCR) SARS-CoV-2 IgG Ab 07/12/20 07/12/20 07/12/20 00:32 04:00 04:00 WBC RBC 3.52 L Hgb Hct MCH MCHC RDW Plt Count Lymph % (Auto) Lymph # (Auto) Seg Neutrophils % Seg Neuts % (Manual) 90.0 H Lymphocytes % (Manual) 4.0 L Eosinophils % (Manual) Nucleated RBC % Seg Neutrophils # Seg Neutrophils # Man 9.5 H Lymphocytes # (Manual) 0.4 L Eosinophils # (Manual) D-Dimer ABG pH POC ABG pCO2 POC ABG pO2 ABG pO2 ABG HCO3 ABG O2 Saturation ABG Base Excess ABG Hemoglobin ABG Oxyhemoglobin ABG Sodium ABG Potassium ABG Chloride ABG Glucose Oxyhemoglobin Carboxyhemoglobin Sodium Potassium Chloride Carbon Dioxide 31 H BUN 21 H Creatinine Glucose 175 H POC Glucose 178 H Lactic Acid Calcium 8.0 L Ferritin AST ALT Lactate Dehydrogenase C-Reactive Protein Total Protein 5.4 L Albumin 3.0 L Triglycerides Arterial Blood Glucose Arterial Blood Ionized Calcium Urine Creatinine Urine Total Protein Vancomycin Trough Coronavirus (PCR) SARS-CoV-2 IgG Ab 07/12/20 07/12/2020 04:01 05:47 12:09 WBC RBC Hgb Hct MCH MCHC RDW Plt Count Lymph % (Auto) Lymph # (Auto) Seg Neutrophils % Seg Neuts % (Manual) Lymphocytes % (Manual) Eosinophils % (Manual) Nucleated RBC % Seg Neutrophils # Seg Neutrophils # Man Lymphocytes # (Manual) Eosinophils # (Manual) D-Dimer ABG pH 7.465 H POC ABG pCO2 POC ABG pO2 ABG pO2 ABG HCO3 ABG O2 Saturation ABG Base Excess ABG Hemoglobin 10.6 L ABG Oxyhemoglobin ABG Sodium ABG Potassium ABG Chloride ABG Glucose 177 H Oxyhemoglobin Carboxyhemoglobin Sodium Potassium Chloride Carbon Dioxide BUN Creatinine Glucose POC Glucose 185 H 227 H Lactic Acid Calcium Ferritin AST ALT Lactate Dehydrogenase C-Reactive Protein Total Protein Albumin Triglycerides Arterial Blood Glucose 177 H Arterial Blood Ionized Calcium 4.5 L Urine Creatinine Urine Total Protein Vancomycin Trough Coronavirus (PCR) SARS-CoV-2 IgG Ab 07/12/20 07/12/20 07/13/20 17:34 23:57 05:06 WBC RBC Hgb Hct MCH MCHC RDW Plt Count Lymph % (Auto) Lymph # (Auto) Seg Neutrophils % Seg Neuts % (Manual) Lymphocytes % (Manual) Eosinophils % (Manual) Nucleated RBC % Seg Neutrophils # Seg Neutrophils # Man Lymphocytes # (Manual) Eosinophils # (Manual) D-Dimer ABG pH POC ABG pCO2 POC ABG pO2 ABG pO2 ABG HCO3 ABG O2 Saturation ABG Base Excess ABG Hemoglobin ABG Oxyhemoglobin ABG Sodium ABG Potassium ABG Chloride ABG Glucose Oxyhemoglobin Carboxyhemoglobin Sodium Potassium Chloride Carbon Dioxide BUN Creatinine Glucose POC Glucose 202 H 163 H 166 H Lactic Acid Calcium Ferritin AST ALT Lactate Dehydrogenase C-Reactive Protein Total Protein Albumin Triglycerides Arterial Blood Glucose Arterial Blood Ionized Calcium Urine Creatinine Urine Total Protein Vancomycin Trough Coronavirus (PCR) SARS-CoV-2 IgG Ab 07/13/20 07/13/20 07/13/20 07:20 07:20 07:20 WBC 20.5 H RBC Hgb Hct MCH MCHC RDW Plt Count Lymph % (Auto) Lymph # (Auto) Seg Neutrophils % Seg Neuts % (Manual) 93.0 H Lymphocytes % (Manual) 3.0 L Eosinophils % (Manual) Nucleated RBC % Seg Neutrophils # Seg Neutrophils # Man 19.1 H Lymphocytes # (Manual) 0.6 L Eosinophils # (Manual) D-Dimer 826.36 H ABG pH POC ABG pCO2 POC ABG pO2 ABG pO2 ABG HCO3 ABG O2 Saturation ABG Base Excess ABG Hemoglobin ABG Oxyhemoglobin ABG Sodium ABG Potassium ABG Chloride ABG Glucose Oxyhemoglobin Carboxyhemoglobin Sodium Potassium Chloride Carbon Dioxide 31 H BUN 25 H Creatinine Glucose 163 H POC Glucose Lactic Acid Calcium 8.1 L Ferritin AST ALT Lactate Dehydrogenase 512 H C-Reactive Protein 1.80 H Total Protein 5.8 L Albumin 3.2 L Triglycerides Arterial Blood Glucose Arterial Blood Ionized Calcium Urine Creatinine Urine Total Protein Vancomycin Trough Coronavirus (PCR) SARS-CoV-2 IgG Ab 07/13/20 07/13/20 07/13/20 07:20 11:37 17:20 WBC RBC Hgb Hct MCH MCHC RDW Plt Count Lymph % (Auto) Lymph # (Auto) Seg Neutrophils % Seg Neuts % (Manual) Lymphocytes % (Manual) Eosinophils % (Manual) Nucleated RBC % Seg Neutrophils # Seg Neutrophils # Man Lymphocytes # (Manual) Eosinophils # (Manual) D-Dimer ABG pH POC ABG pCO2 POC ABG pO2 ABG pO2 ABG HCO3 ABG O2 Saturation ABG Base Excess ABG Hemoglobin ABG Oxyhemoglobin ABG Sodium ABG Potassium ABG Chloride ABG Glucose Oxyhemoglobin Carboxyhemoglobin Sodium Potassium Chloride Carbon Dioxide BUN Creatinine Glucose POC Glucose 232 H 210 H Lactic Acid Calcium Ferritin 219.8 H AST ALT Lactate Dehydrogenase C-Reactive Protein Total Protein Albumin Triglycerides Arterial Blood Glucose Arterial Blood Ionized Calcium Urine Creatinine Urine Total Protein Vancomycin Trough Coronavirus (PCR) SARS-CoV-2 IgG Ab 07/13/20 07/13/20 07/14/20 23:57 Unknown 05:22 WBC RBC Hgb Hct MCH MCHC RDW Plt Count Lymph % (Auto) Lymph # (Auto) Seg Neutrophils % Seg Neuts % (Manual) Lymphocytes % (Manual) Eosinophils % (Manual) Nucleated RBC % Seg Neutrophils # Seg Neutrophils # Man Lymphocytes # (Manual) Eosinophils # (Manual) D-Dimer ABG pH 7.341 L POC ABG pCO2 POC ABG pO2 133.0 H ABG pO2 56.5 L ABG HCO3 29.7 H ABG O2 Saturation 89.3 L ABG Base Excess ABG Hemoglobin 11.0 L ABG Oxyhemoglobin ABG Sodium ABG Potassium ABG Chloride ABG Glucose 207 H Oxyhemoglobin 87.7 L Carboxyhemoglobin Sodium Potassium Chloride Carbon Dioxide BUN Creatinine Glucose POC Glucose 190 H Lactic Acid Calcium Ferritin AST ALT Lactate Dehydrogenase C-Reactive Protein Total Protein Albumin Triglycerides Arterial Blood Glucose 207 H Arterial Blood Ionized Calcium 4.5 L Urine Creatinine Urine Total Protein Vancomycin Trough Coronavirus (PCR) SARS-CoV-2 IgG Ab 07/14/20 07/14/20 07/14/20 05:54 11:16 17:50 WBC RBC Hgb Hct MCH MCHC RDW Plt Count Lymph % (Auto) Lymph # (Auto) Seg Neutrophils % Seg Neuts % (Manual) Lymphocytes % (Manual) Eosinophils % (Manual) Nucleated RBC % Seg Neutrophils # Seg Neutrophils # Man Lymphocytes # (Manual) Eosinophils # (Manual) D-Dimer ABG pH POC ABG pCO2 POC ABG pO2 ABG pO2 ABG HCO3 ABG O2 Saturation ABG Base Excess ABG Hemoglobin ABG Oxyhemoglobin ABG Sodium ABG Potassium ABG Chloride ABG Glucose Oxyhemoglobin Carboxyhemoglobin Sodium Potassium Chloride Carbon Dioxide BUN Creatinine Glucose POC Glucose 206 H 196 H 205 H Lactic Acid Calcium Ferritin AST ALT Lactate Dehydrogenase C-Reactive Protein Total Protein Albumin Triglycerides Arterial Blood Glucose Arterial Blood Ionized Calcium Urine Creatinine Urine Total Protein Vancomycin Trough Coronavirus (PCR) SARS-CoV-2 IgG Ab 07/14/20 07/15/20 07/15/20 23:28 03:16 06:12 WBC RBC Hgb Hct MCH MCHC RDW Plt Count Lymph % (Auto) Lymph # (Auto) Seg Neutrophils % Seg Neuts % (Manual) Lymphocytes % (Manual) Eosinophils % (Manual) Nucleated RBC % Seg Neutrophils # Seg Neutrophils # Man Lymphocytes # (Manual) Eosinophils # (Manual) D-Dimer ABG pH POC ABG pCO2 49.2 H POC ABG pO2 120.3 H ABG pO2 ABG HCO3 ABG O2 Saturation ABG Base Excess ABG Hemoglobin 9.5 L ABG Oxyhemoglobin ABG Sodium ABG Potassium ABG Chloride ABG Glucose 148 H Oxyhemoglobin Carboxyhemoglobin Sodium Potassium Chloride Carbon Dioxide BUN Creatinine Glucose POC Glucose 160 H 178 H Lactic Acid Calcium Ferritin AST ALT Lactate Dehydrogenase C-Reactive Protein Total Protein Albumin Triglycerides Arterial Blood Glucose 148 H Arterial Blood Ionized Calcium Urine Creatinine Urine Total Protein Vancomycin Trough Coronavirus (PCR) SARS-CoV-2 IgG Ab 07/15/20 07/15/20 07/15/20 09:00 12:32 14:30 WBC RBC Hgb Hct MCH MCHC RDW Plt Count Lymph % (Auto) Lymph # (Auto) Seg Neutrophils % Seg Neuts % (Manual) Lymphocytes % (Manual) Eosinophils % (Manual) Nucleated RBC % Seg Neutrophils # Seg Neutrophils # Man Lymphocytes # (Manual) Eosinophils # (Manual) D-Dimer ABG pH POC ABG pCO2 POC ABG pO2 ABG pO2 ABG HCO3 ABG O2 Saturation ABG Base Excess ABG Hemoglobin ABG Oxyhemoglobin ABG Sodium ABG Potassium ABG Chloride ABG Glucose Oxyhemoglobin Carboxyhemoglobin Sodium Potassium Chloride Carbon Dioxide BUN Creatinine Glucose POC Glucose 173 H Lactic Acid Calcium Ferritin AST ALT Lactate Dehydrogenase 531 H C-Reactive Protein Total Protein Albumin Triglycerides Arterial Blood Glucose Arterial Blood Ionized Calcium Urine Creatinine Urine Total Protein Vancomycin Trough Coronavirus (PCR) SARS-CoV-2 IgG Ab Reactive A 07/15/20 07/15/20 07/16/20 18:24 23:35 04:03 WBC RBC Hgb Hct MCH MCHC RDW Plt Count Lymph % (Auto) Lymph # (Auto) Seg Neutrophils % Seg Neuts % (Manual) Lymphocytes % (Manual) Eosinophils % (Manual) Nucleated RBC % Seg Neutrophils # Seg Neutrophils # Man Lymphocytes # (Manual) Eosinophils # (Manual) D-Dimer ABG pH POC ABG pCO2 POC ABG pO2 ABG pO2 72.7 L ABG HCO3 35.5 H ABG O2 Saturation ABG Base Excess 9.4 H ABG Hemoglobin 10.6 L ABG Oxyhemoglobin ABG Sodium ABG Potassium ABG Chloride ABG Glucose Oxyhemoglobin 93.6 L Carboxyhemoglobin Sodium Potassium Chloride Carbon Dioxide BUN Creatinine Glucose POC Glucose 173 H 181 H Lactic Acid Calcium Ferritin AST ALT Lactate Dehydrogenase C-Reactive Protein Total Protein Albumin Triglycerides Arterial Blood Glucose Arterial Blood Ionized Calcium Urine Creatinine Urine Total Protein Vancomycin Trough Coronavirus (PCR) SARS-CoV-2 IgG Ab 07/16/20 07/16/20 07/16/20 05:35 09:00 09:00 WBC 16.5 H RBC 3.59 L Hgb Hct MCH MCHC RDW Plt Count Lymph % (Auto) Lymph # (Auto) Seg Neutrophils % Seg Neuts % (Manual) 96.0 H Lymphocytes % (Manual) 3.0 L Eosinophils % (Manual) Nucleated RBC % Seg Neutrophils # Seg Neutrophils # Man 15.8 H Lymphocytes # (Manual) 0.5 L Eosinophils # (Manual) D-Dimer ABG pH POC ABG pCO2 POC ABG pO2 ABG pO2 ABG HCO3 ABG O2 Saturation ABG Base Excess ABG Hemoglobin ABG Oxyhemoglobin ABG Sodium ABG Potassium ABG Chloride ABG Glucose Oxyhemoglobin Carboxyhemoglobin Sodium Potassium Chloride Carbon Dioxide 39 H D BUN 25 H Creatinine 0.4 L Glucose 167 H POC Glucose 129 H Lactic Acid Calcium 8.3 L Ferritin AST ALT Lactate Dehydrogenase C-Reactive Protein Total Protein Albumin Triglycerides Arterial Blood Glucose Arterial Blood Ionized Calcium Urine Creatinine Urine Total Protein Vancomycin Trough Coronavirus (PCR) SARS-CoV-2 IgG Ab 07/16/20 07/16/20 07/17/20 12:32 18:28 00:09 WBC RBC Hgb Hct MCH MCHC RDW Plt Count Lymph % (Auto) Lymph # (Auto) Seg Neutrophils % Seg Neuts % (Manual) Lymphocytes % (Manual) Eosinophils % (Manual) Nucleated RBC % Seg Neutrophils # Seg Neutrophils # Man Lymphocytes # (Manual) Eosinophils # (Manual) D-Dimer ABG pH POC ABG pCO2 POC ABG pO2 ABG pO2 ABG HCO3 ABG O2 Saturation ABG Base Excess ABG Hemoglobin ABG Oxyhemoglobin ABG Sodium ABG Potassium ABG Chloride ABG Glucose Oxyhemoglobin Carboxyhemoglobin Sodium Potassium Chloride Carbon Dioxide BUN Creatinine Glucose POC Glucose 187 H 174 H 184 H Lactic Acid Calcium Ferritin AST ALT Lactate Dehydrogenase C-Reactive Protein Total Protein Albumin Triglycerides Arterial Blood Glucose Arterial Blood Ionized Calcium Urine Creatinine Urine Total Protein Vancomycin Trough Coronavirus (PCR) SARS-CoV-2 IgG Ab 07/17/20 07/17/20 07/17/20 04:30 05:47 13:03 WBC RBC Hgb Hct MCH MCHC RDW Plt Count Lymph % (Auto) Lymph # (Auto) Seg Neutrophils % Seg Neuts % (Manual) Lymphocytes % (Manual) Eosinophils % (Manual) Nucleated RBC % Seg Neutrophils # Seg Neutrophils # Man Lymphocytes # (Manual) Eosinophils # (Manual) D-Dimer ABG pH POC ABG pCO2 POC ABG pO2 ABG pO2 ABG HCO3 38.1 H ABG O2 Saturation ABG Base Excess 11.3 H ABG Hemoglobin 10.5 L ABG Oxyhemoglobin ABG Sodium ABG Potassium ABG Chloride ABG Glucose Oxyhemoglobin Carboxyhemoglobin Sodium Potassium Chloride Carbon Dioxide BUN Creatinine Glucose POC Glucose 135 H 210 H Lactic Acid Calcium Ferritin AST ALT Lactate Dehydrogenase C-Reactive Protein Total Protein Albumin Triglycerides Arterial Blood Glucose Arterial Blood Ionized Calcium Urine Creatinine Urine Total Protein Vancomycin Trough Coronavirus (PCR) SARS-CoV-2 IgG Ab 07/17/20 07/17/20 07/18/20 16:50 23:39 04:01 WBC RBC Hgb Hct MCH MCHC RDW Plt Count Lymph % (Auto) Lymph # (Auto) Seg Neutrophils % Seg Neuts % (Manual) Lymphocytes % (Manual) Eosinophils % (Manual) Nucleated RBC % Seg Neutrophils # Seg Neutrophils # Man Lymphocytes # (Manual) Eosinophils # (Manual) D-Dimer ABG pH POC ABG pCO2 56.8 H POC ABG pO2 61.9 L ABG pO2 ABG HCO3 ABG O2 Saturation ABG Base Excess ABG Hemoglobin 11.7 L ABG Oxyhemoglobin ABG Sodium 134.2 L ABG Potassium 4.7 H ABG Chloride 97.0 L ABG Glucose 173 H Oxyhemoglobin Carboxyhemoglobin Sodium Potassium Chloride Carbon Dioxide BUN Creatinine Glucose POC Glucose 193 H 163 H Lactic Acid Calcium Ferritin AST ALT Lactate Dehydrogenase C-Reactive Protein Total Protein Albumin Triglycerides Arterial Blood Glucose 173 H Arterial Blood Ionized Calcium Urine Creatinine Urine Total Protein Vancomycin Trough Coronavirus (PCR) SARS-CoV-2 IgG Ab 07/18/20 07/18/20 07/18/20 05:41 12:03 17:26 WBC RBC Hgb Hct MCH MCHC RDW Plt Count Lymph % (Auto) Lymph # (Auto) Seg Neutrophils % Seg Neuts % (Manual) Lymphocytes % (Manual) Eosinophils % (Manual) Nucleated RBC % Seg Neutrophils # Seg Neutrophils # Man Lymphocytes # (Manual) Eosinophils # (Manual) D-Dimer ABG pH POC ABG pCO2 POC ABG pO2 ABG pO2 ABG HCO3 ABG O2 Saturation ABG Base Excess ABG Hemoglobin ABG Oxyhemoglobin ABG Sodium ABG Potassium ABG Chloride ABG Glucose Oxyhemoglobin Carboxyhemoglobin Sodium Potassium Chloride Carbon Dioxide BUN Creatinine Glucose POC Glucose 153 H 177 H 160 H Lactic Acid Calcium Ferritin AST ALT Lactate Dehydrogenase C-Reactive Protein Total Protein Albumin Triglycerides Arterial Blood Glucose Arterial Blood Ionized Calcium Urine Creatinine Urine Total Protein Vancomycin Trough Coronavirus (PCR) SARS-CoV-2 IgG Ab 07/18/20 07/19/20 07/19/20 23:58 04:15 05:05 WBC RBC Hgb Hct MCH MCHC RDW Plt Count Lymph % (Auto) Lymph # (Auto) Seg Neutrophils % Seg Neuts % (Manual) Lymphocytes % (Manual) Eosinophils % (Manual) Nucleated RBC % Seg Neutrophils # Seg Neutrophils # Man Lymphocytes # (Manual) Eosinophils # (Manual) D-Dimer ABG pH 7.465 H POC ABG pCO2 49.1 H POC ABG pO2 49.4 L ABG pO2 ABG HCO3 ABG O2 Saturation ABG Base Excess ABG Hemoglobin 11.6 L ABG Oxyhemoglobin ABG Sodium 132.3 L ABG Potassium ABG Chloride 97.0 L ABG Glucose 148 H Oxyhemoglobin Carboxyhemoglobin Sodium Potassium Chloride Carbon Dioxide BUN Creatinine Glucose POC Glucose 144 H 117 H Lactic Acid Calcium Ferritin AST ALT Lactate Dehydrogenase C-Reactive Protein Total Protein Albumin Triglycerides Arterial Blood Glucose 148 H Arterial Blood Ionized Calcium Urine Creatinine Urine Total Protein Vancomycin Trough Coronavirus (PCR) SARS-CoV-2 IgG Ab 07/19/20 07/19/20 07/19/20 08:30 08:30 13:21 WBC 17.2 H RBC 3.59 L Hgb Hct MCH MCHC RDW Plt Count Lymph % (Auto) Lymph # (Auto) Seg Neutrophils % Seg Neuts % (Manual) Lymphocytes % (Manual) Eosinophils % (Manual) Nucleated RBC % Seg Neutrophils # Seg Neutrophils # Man Lymphocytes # (Manual) Eosinophils # (Manual) D-Dimer ABG pH POC ABG pCO2 POC ABG pO2 ABG pO2 ABG HCO3 ABG O2 Saturation ABG Base Excess ABG Hemoglobin ABG Oxyhemoglobin ABG Sodium ABG Potassium ABG Chloride ABG Glucose Oxyhemoglobin Carboxyhemoglobin Sodium Potassium Chloride 95.7 L Carbon Dioxide 37 H BUN 20 H Creatinine 0.4 L Glucose 125 H POC Glucose 137 H Lactic Acid Calcium 8.1 L Ferritin AST ALT Lactate Dehydrogenase C-Reactive Protein Total Protein Albumin Triglycerides Arterial Blood Glucose Arterial Blood Ionized Calcium Urine Creatinine Urine Total Protein Vancomycin Trough Coronavirus (PCR) SARS-CoV-2 IgG Ab 07/19/20 07/19/20 07/20/20 16:29 17:28 00:25 WBC RBC Hgb Hct MCH MCHC RDW Plt Count Lymph % (Auto) Lymph # (Auto) Seg Neutrophils % Seg Neuts % (Manual) Lymphocytes % (Manual) Eosinophils % (Manual) Nucleated RBC % Seg Neutrophils # Seg Neutrophils # Man Lymphocytes # (Manual) Eosinophils # (Manual) D-Dimer ABG pH POC ABG pCO2 53.4 H POC ABG pO2 71.0 L ABG pO2 ABG HCO3 ABG O2 Saturation ABG Base Excess ABG Hemoglobin 11.2 L ABG Oxyhemoglobin 93.6 L ABG Sodium 130.9 L ABG Potassium ABG Chloride 95.0 L ABG Glucose 188 H Oxyhemoglobin Carboxyhemoglobin Sodium Potassium Chloride Carbon Dioxide BUN Creatinine Glucose POC Glucose 174 H 188 H Lactic Acid Calcium Ferritin AST ALT Lactate Dehydrogenase C-Reactive Protein Total Protein Albumin Triglycerides Arterial Blood Glucose 188 H Arterial Blood Ionized Calcium 4.4 L Urine Creatinine Urine Total Protein Vancomycin Trough Coronavirus (PCR) SARS-CoV-2 IgG Ab 07/20/20 07/20/20 07/20/20 04:14 05:23 12:12 WBC RBC Hgb Hct MCH MCHC RDW Plt Count Lymph % (Auto) Lymph # (Auto) Seg Neutrophils % Seg Neuts % (Manual) Lymphocytes % (Manual) Eosinophils % (Manual) Nucleated RBC % Seg Neutrophils # Seg Neutrophils # Man Lymphocytes # (Manual) Eosinophils # (Manual) D-Dimer ABG pH POC ABG pCO2 52.7 H POC ABG pO2 59.5 L ABG pO2 ABG HCO3 ABG O2 Saturation ABG Base Excess ABG Hemoglobin 10.6 L ABG Oxyhemoglobin ABG Sodium 134.4 L ABG Potassium ABG Chloride ABG Glucose 176 H Oxyhemoglobin Carboxyhemoglobin Sodium Potassium Chloride Carbon Dioxide BUN Creatinine Glucose POC Glucose 212 H 190 H Lactic Acid Calcium Ferritin AST ALT Lactate Dehydrogenase C-Reactive Protein Total Protein Albumin Triglycerides Arterial Blood Glucose 176 H Arterial Blood Ionized Calcium 4.5 L Urine Creatinine Urine Total Protein Vancomycin Trough Coronavirus (PCR) SARS-CoV-2 IgG Ab 07/20/20 07/21/20 07/21/20 16:59 00:01 04:30 WBC RBC Hgb Hct MCH MCHC RDW Plt Count Lymph % (Auto) Lymph # (Auto) Seg Neutrophils % Seg Neuts % (Manual) Lymphocytes % (Manual) Eosinophils % (Manual) Nucleated RBC % Seg Neutrophils # Seg Neutrophils # Man Lymphocytes # (Manual) Eosinophils # (Manual) D-Dimer ABG pH 7.468 H POC ABG pCO2 POC ABG pO2 63.3 L ABG pO2 ABG HCO3 ABG O2 Saturation ABG Base Excess ABG Hemoglobin 11 L ABG Oxyhemoglobin ABG Sodium 135.0 L ABG Potassium ABG Chloride ABG Glucose 204 H Oxyhemoglobin Carboxyhemoglobin Sodium Potassium Chloride Carbon Dioxide BUN Creatinine Glucose POC Glucose 201 H 177 H Lactic Acid Calcium Ferritin AST ALT Lactate Dehydrogenase C-Reactive Protein Total Protein Albumin Triglycerides Arterial Blood Glucose 204 H Arterial Blood Ionized Calcium 4.5 L Urine Creatinine Urine Total Protein Vancomycin Trough Coronavirus (PCR) SARS-CoV-2 IgG Ab 07/21/20 07/21/20 07/21/20 05:26 11:50 17:16 WBC RBC Hgb Hct MCH MCHC RDW Plt Count Lymph % (Auto) Lymph # (Auto) Seg Neutrophils % Seg Neuts % (Manual) Lymphocytes % (Manual) Eosinophils % (Manual) Nucleated RBC % Seg Neutrophils # Seg Neutrophils # Man Lymphocytes # (Manual) Eosinophils # (Manual) D-Dimer ABG pH POC ABG pCO2 POC ABG pO2 ABG pO2 ABG HCO3 ABG O2 Saturation ABG Base Excess ABG Hemoglobin ABG Oxyhemoglobin ABG Sodium ABG Potassium ABG Chloride ABG Glucose Oxyhemoglobin Carboxyhemoglobin Sodium Potassium Chloride Carbon Dioxide BUN Creatinine Glucose POC Glucose 175 H 157 H 148 H Lactic Acid Calcium Ferritin AST ALT Lactate Dehydrogenase C-Reactive Protein Total Protein Albumin Triglycerides Arterial Blood Glucose Arterial Blood Ionized Calcium Urine Creatinine Urine Total Protein Vancomycin Trough Coronavirus (PCR) SARS-CoV-2 IgG Ab 07/22/20 07/22/20 07/22/20 00:01 03:26 05:16 WBC RBC Hgb Hct MCH MCHC RDW Plt Count Lymph % (Auto) Lymph # (Auto) Seg Neutrophils % Seg Neuts % (Manual) Lymphocytes % (Manual) Eosinophils % (Manual) Nucleated RBC % Seg Neutrophils # Seg Neutrophils # Man Lymphocytes # (Manual) Eosinophils # (Manual) D-Dimer ABG pH POC ABG pCO2 POC ABG pO2 54.2 L ABG pO2 ABG HCO3 ABG O2 Saturation ABG Base Excess ABG Hemoglobin 10.9 L ABG Oxyhemoglobin ABG Sodium 133.7 L ABG Potassium ABG Chloride ABG Glucose 217 H Oxyhemoglobin Carboxyhemoglobin Sodium Potassium Chloride Carbon Dioxide BUN Creatinine Glucose POC Glucose 172 H 182 H Lactic Acid Calcium Ferritin AST ALT Lactate Dehydrogenase C-Reactive Protein Total Protein Albumin Triglycerides Arterial Blood Glucose 217 H Arterial Blood Ionized Calcium 4.5 L Urine Creatinine Urine Total Protein Vancomycin Trough Coronavirus (PCR) SARS-CoV-2 IgG Ab 07/22/20 07/22/20 07/23/20 11:43 17:08 04:00 WBC 11.6 H RBC 3.54 L Hgb Hct MCH MCHC RDW Plt Count Lymph % (Auto) Lymph # (Auto) Seg Neutrophils % Seg Neuts % (Manual) 94.0 H Lymphocytes % (Manual) 5.0 L Eosinophils % (Manual) Nucleated RBC % Seg Neutrophils # Seg Neutrophils # Man 10.9 H Lymphocytes # (Manual) 0.6 L Eosinophils # (Manual) D-Dimer ABG pH POC ABG pCO2 POC ABG pO2 ABG pO2 ABG HCO3 ABG O2 Saturation ABG Base Excess ABG Hemoglobin ABG Oxyhemoglobin ABG Sodium ABG Potassium ABG Chloride ABG Glucose Oxyhemoglobin Carboxyhemoglobin Sodium Potassium Chloride Carbon Dioxide BUN Creatinine Glucose POC Glucose 159 H 163 H Lactic Acid Calcium Ferritin AST ALT Lactate Dehydrogenase C-Reactive Protein Total Protein Albumin Triglycerides Arterial Blood Glucose Arterial Blood Ionized Calcium Urine Creatinine Urine Total Protein Vancomycin Trough Coronavirus (PCR) SARS-CoV-2 IgG Ab 07/23/20 07/23/20 07/23/20 04:00 04:53 04:54 WBC RBC Hgb Hct MCH MCHC RDW Plt Count Lymph % (Auto) Lymph # (Auto) Seg Neutrophils % Seg Neuts % (Manual) Lymphocytes % (Manual) Eosinophils % (Manual) Nucleated RBC % Seg Neutrophils # Seg Neutrophils # Man Lymphocytes # (Manual) Eosinophils # (Manual) D-Dimer ABG pH 7.453 H POC ABG pCO2 POC ABG pO2 ABG pO2 ABG HCO3 32.4 H ABG O2 Saturation ABG Base Excess 7.5 H ABG Hemoglobin 10.7 L ABG Oxyhemoglobin ABG Sodium ABG Potassium ABG Chloride ABG Glucose Oxyhemoglobin Carboxyhemoglobin Sodium Potassium Chloride Carbon Dioxide 35 H BUN Creatinine 0.4 L Glucose 112 H POC Glucose 169 H Lactic Acid Calcium 8.2 L Ferritin AST ALT Lactate Dehydrogenase C-Reactive Protein Total Protein Albumin Triglycerides Arterial Blood Glucose Arterial Blood Ionized Calcium Urine Creatinine Urine Total Protein Vancomycin Trough Coronavirus (PCR) SARS-CoV-2 IgG Ab 07/23/20 07/23/20 07/23/20 11:50 23:19 Unknown WBC RBC Hgb Hct MCH MCHC RDW Plt Count Lymph % (Auto) Lymph # (Auto) Seg Neutrophils % Seg Neuts % (Manual) Lymphocytes % (Manual) Eosinophils % (Manual) Nucleated RBC % Seg Neutrophils # Seg Neutrophils # Man Lymphocytes # (Manual) Eosinophils # (Manual) D-Dimer ABG pH POC ABG pCO2 POC ABG pO2 ABG pO2 ABG HCO3 ABG O2 Saturation ABG Base Excess ABG Hemoglobin ABG Oxyhemoglobin ABG Sodium ABG Potassium ABG Chloride ABG Glucose Oxyhemoglobin Carboxyhemoglobin Sodium Potassium Chloride Carbon Dioxide BUN Creatinine Glucose POC Glucose 118 H 168 H Lactic Acid Calcium Ferritin AST ALT Lactate Dehydrogenase C-Reactive Protein Total Protein Albumin Triglycerides Arterial Blood Glucose Arterial Blood Ionized Calcium Urine Creatinine Urine Total Protein Vancomycin Trough Coronavirus (PCR) Positive A SARS-CoV-2 IgG Ab 07/24/20 07/24/20 07/24/20 04:11 05:37 11:42 WBC RBC Hgb Hct MCH MCHC RDW Plt Count Lymph % (Auto) Lymph # (Auto) Seg Neutrophils % Seg Neuts % (Manual) Lymphocytes % (Manual) Eosinophils % (Manual) Nucleated RBC % Seg Neutrophils # Seg Neutrophils # Man Lymphocytes # (Manual) Eosinophils # (Manual) D-Dimer ABG pH POC ABG pCO2 POC ABG pO2 ABG pO2 54.4 L ABG HCO3 34.3 H ABG O2 Saturation 89.0 L ABG Base Excess 8.5 H ABG Hemoglobin 11.0 L ABG Oxyhemoglobin ABG Sodium ABG Potassium ABG Chloride ABG Glucose Oxyhemoglobin 87.0 L Carboxyhemoglobin Sodium Potassium Chloride Carbon Dioxide BUN Creatinine Glucose POC Glucose 115 H 166 H Lactic Acid Calcium Ferritin AST ALT Lactate Dehydrogenase C-Reactive Protein Total Protein Albumin Triglycerides Arterial Blood Glucose Arterial Blood Ionized Calcium Urine Creatinine Urine Total Protein Vancomycin Trough Coronavirus (PCR) SARS-CoV-2 IgG Ab 07/24/20 07/24/20 07/25/20 17:39 23:38 03:53 WBC RBC Hgb Hct MCH MCHC RDW Plt Count Lymph % (Auto) Lymph # (Auto) Seg Neutrophils % Seg Neuts % (Manual) Lymphocytes % (Manual) Eosinophils % (Manual) Nucleated RBC % Seg Neutrophils # Seg Neutrophils # Man Lymphocytes # (Manual) Eosinophils # (Manual) D-Dimer ABG pH POC ABG pCO2 POC ABG pO2 ABG pO2 175.9 H ABG HCO3 34.0 H ABG O2 Saturation 99.1 H ABG Base Excess 8.2 H ABG Hemoglobin 10.6 L ABG Oxyhemoglobin ABG Sodium ABG Potassium ABG Chloride ABG Glucose Oxyhemoglobin Carboxyhemoglobin Sodium Potassium Chloride Carbon Dioxide BUN Creatinine Glucose POC Glucose 150 H 139 H Lactic Acid Calcium Ferritin AST ALT Lactate Dehydrogenase C-Reactive Protein Total Protein Albumin Triglycerides Arterial Blood Glucose Arterial Blood Ionized Calcium Urine Creatinine Urine Total Protein Vancomycin Trough Coronavirus (PCR) SARS-CoV-2 IgG Ab 07/25/20 07/25/20 07/25/20 05:47 12:09 23:46 WBC RBC Hgb Hct MCH MCHC RDW Plt Count Lymph % (Auto) Lymph # (Auto) Seg Neutrophils % Seg Neuts % (Manual) Lymphocytes % (Manual) Eosinophils % (Manual) Nucleated RBC % Seg Neutrophils # Seg Neutrophils # Man Lymphocytes # (Manual) Eosinophils # (Manual) D-Dimer ABG pH POC ABG pCO2 POC ABG pO2 ABG pO2 ABG HCO3 ABG O2 Saturation ABG Base Excess ABG Hemoglobin ABG Oxyhemoglobin ABG Sodium ABG Potassium ABG Chloride ABG Glucose Oxyhemoglobin Carboxyhemoglobin Sodium Potassium Chloride Carbon Dioxide BUN Creatinine Glucose POC Glucose 144 H 152 H 116 H Lactic Acid Calcium Ferritin AST ALT Lactate Dehydrogenase C-Reactive Protein Total Protein Albumin Triglycerides Arterial Blood Glucose Arterial Blood Ionized Calcium Urine Creatinine Urine Total Protein Vancomycin Trough Coronavirus (PCR) SARS-CoV-2 IgG Ab 07/26/20 07/26/20 07/26/20 03:48 05:36 11:28 WBC RBC Hgb Hct MCH MCHC RDW Plt Count Lymph % (Auto) Lymph # (Auto) Seg Neutrophils % Seg Neuts % (Manual) Lymphocytes % (Manual) Eosinophils % (Manual) Nucleated RBC % Seg Neutrophils # Seg Neutrophils # Man Lymphocytes # (Manual) Eosinophils # (Manual) D-Dimer ABG pH POC ABG pCO2 POC ABG pO2 ABG pO2 73.4 L ABG HCO3 35.0 H ABG O2 Saturation ABG Base Excess 8.3 H ABG Hemoglobin 9.8 L ABG Oxyhemoglobin ABG Sodium ABG Potassium ABG Chloride ABG Glucose Oxyhemoglobin 93.7 L Carboxyhemoglobin Sodium Potassium Chloride Carbon Dioxide BUN Creatinine Glucose POC Glucose 136 H 145 H Lactic Acid Calcium Ferritin AST ALT Lactate Dehydrogenase C-Reactive Protein Total Protein Albumin Triglycerides Arterial Blood Glucose Arterial Blood Ionized Calcium Urine Creatinine Urine Total Protein Vancomycin Trough Coronavirus (PCR) SARS-CoV-2 IgG Ab 07/26/20 07/26/20 07/26/20 14:23 17:19 23:33 WBC 12.0 H RBC 3.12 L Hgb 9.5 L Hct 28.6 L MCH MCHC RDW Plt Count Lymph % (Auto) 4.2 L Lymph # (Auto) 0.5 L Seg Neutrophils % 89.8 H Seg Neuts % (Manual) Lymphocytes % (Manual) Eosinophils % (Manual) Nucleated RBC % Seg Neutrophils # 10.8 H Seg Neutrophils # Man Lymphocytes # (Manual) Eosinophils # (Manual) D-Dimer ABG pH POC ABG pCO2 POC ABG pO2 ABG pO2 ABG HCO3 ABG O2 Saturation ABG Base Excess ABG Hemoglobin ABG Oxyhemoglobin ABG Sodium ABG Potassium ABG Chloride ABG Glucose Oxyhemoglobin Carboxyhemoglobin Sodium Potassium Chloride Carbon Dioxide BUN Creatinine Glucose POC Glucose 202 H 122 H Lactic Acid Calcium Ferritin AST ALT Lactate Dehydrogenase C-Reactive Protein Total Protein Albumin Triglycerides Arterial Blood Glucose Arterial Blood Ionized Calcium Urine Creatinine Urine Total Protein Vancomycin Trough Coronavirus (PCR) SARS-CoV-2 IgG Ab 07/27/20 07/27/20 07/27/20 04:30 05:54 12:06 WBC RBC Hgb Hct MCH MCHC RDW Plt Count Lymph % (Auto) Lymph # (Auto) Seg Neutrophils % Seg Neuts % (Manual) Lymphocytes % (Manual) Eosinophils % (Manual) Nucleated RBC % Seg Neutrophils # Seg Neutrophils # Man Lymphocytes # (Manual) Eosinophils # (Manual) D-Dimer ABG pH POC ABG pCO2 POC ABG pO2 ABG pO2 49.0 L ABG HCO3 35.7 H ABG O2 Saturation 87.6 L ABG Base Excess 10.1 H ABG Hemoglobin 11.5 L ABG Oxyhemoglobin ABG Sodium ABG Potassium ABG Chloride ABG Glucose Oxyhemoglobin 85.4 L Carboxyhemoglobin Sodium Potassium Chloride Carbon Dioxide BUN Creatinine Glucose POC Glucose 164 H 149 H Lactic Acid Calcium Ferritin AST ALT Lactate Dehydrogenase C-Reactive Protein Total Protein Albumin Triglycerides Arterial Blood Glucose Arterial Blood Ionized Calcium Urine Creatinine Urine Total Protein Vancomycin Trough Coronavirus (PCR) SARS-CoV-2 IgG Ab 07/27/20 07/27/20 07/27/20 13:00 14:18 14:18 WBC 12.2 H RBC 3.33 L Hgb 10.0 L Hct MCH MCHC RDW Plt Count Lymph % (Auto) Lymph # (Auto) Seg Neutrophils % Seg Neuts % (Manual) 90.0 H Lymphocytes % (Manual) 7.0 L Eosinophils % (Manual) Nucleated RBC % Seg Neutrophils # Seg Neutrophils # Man 11.0 H Lymphocytes # (Manual) 0.9 L Eosinophils # (Manual) D-Dimer ABG pH 7.313 L POC ABG pCO2 POC ABG pO2 ABG pO2 107.5 H ABG HCO3 37.6 H ABG O2 Saturation ABG Base Excess 8.1 H ABG Hemoglobin 10.1 L ABG Oxyhemoglobin ABG Sodium ABG Potassium ABG Chloride ABG Glucose Oxyhemoglobin Carboxyhemoglobin Sodium Potassium Chloride 97.6 L Carbon Dioxide 35 H BUN 18 H Creatinine Glucose 135 H POC Glucose Lactic Acid Calcium 8.3 L Ferritin AST ALT Lactate Dehydrogenase C-Reactive Protein Total Protein Albumin Triglycerides Arterial Blood Glucose Arterial Blood Ionized Calcium Urine Creatinine Urine Total Protein Vancomycin Trough Coronavirus (PCR) SARS-CoV-2 IgG Ab 07/27/20 07/27/20 07/28/20 17:09 23:14 04:15 WBC RBC Hgb Hct MCH MCHC RDW Plt Count Lymph % (Auto) Lymph # (Auto) Seg Neutrophils % Seg Neuts % (Manual) Lymphocytes % (Manual) Eosinophils % (Manual) Nucleated RBC % Seg Neutrophils # Seg Neutrophils # Man Lymphocytes # (Manual) Eosinophils # (Manual) D-Dimer ABG pH 7.317 L POC ABG pCO2 POC ABG pO2 ABG pO2 130.3 H ABG HCO3 40.9 H ABG O2 Saturation ABG Base Excess 13.5 H ABG Hemoglobin 5.8 L ABG Oxyhemoglobin ABG Sodium ABG Potassium ABG Chloride ABG Glucose Oxyhemoglobin Carboxyhemoglobin Sodium Potassium Chloride Carbon Dioxide BUN Creatinine Glucose POC Glucose 115 H 139 H Lactic Acid Calcium Ferritin AST ALT Lactate Dehydrogenase C-Reactive Protein Total Protein Albumin Triglycerides Arterial Blood Glucose Arterial Blood Ionized Calcium Urine Creatinine Urine Total Protein Vancomycin Trough Coronavirus (PCR) SARS-CoV-2 IgG Ab 07/28/20 07/28/20 07/28/20 05:34 09:20 09:20 WBC RBC 2.89 L Hgb 9.5 L Hct 26.6 L MCH 33 H MCHC 36 H RDW Plt Count 123 L Lymph % (Auto) Lymph # (Auto) Seg Neutrophils % Seg Neuts % (Manual) 89.0 H Lymphocytes % (Manual) 5.0 L Eosinophils % (Manual) Nucleated RBC % Seg Neutrophils # Seg Neutrophils # Man 8.6 H Lymphocytes # (Manual) 0.5 L Eosinophils # (Manual) D-Dimer ABG pH POC ABG pCO2 POC ABG pO2 ABG pO2 ABG HCO3 ABG O2 Saturation ABG Base Excess ABG Hemoglobin ABG Oxyhemoglobin ABG Sodium ABG Potassium ABG Chloride ABG Glucose Oxyhemoglobin Carboxyhemoglobin Sodium 134 L Potassium Chloride 95.6 L Carbon Dioxide 39 H BUN Creatinine 0.3 L Glucose 131 H POC Glucose 130 H Lactic Acid Calcium 7.9 L Ferritin AST ALT Lactate Dehydrogenase C-Reactive Protein Total Protein Albumin Triglycerides Arterial Blood Glucose Arterial Blood Ionized Calcium Urine Creatinine Urine Total Protein Vancomycin Trough Coronavirus (PCR) SARS-CoV-2 IgG Ab 07/28/20 07/28/20 07/28/20 11:50 18:36 23:22 WBC RBC Hgb Hct MCH MCHC RDW Plt Count Lymph % (Auto) Lymph # (Auto) Seg Neutrophils % Seg Neuts % (Manual) Lymphocytes % (Manual) Eosinophils % (Manual) Nucleated RBC % Seg Neutrophils # Seg Neutrophils # Man Lymphocytes # (Manual) Eosinophils # (Manual) D-Dimer ABG pH POC ABG pCO2 POC ABG pO2 ABG pO2 ABG HCO3 ABG O2 Saturation ABG Base Excess ABG Hemoglobin ABG Oxyhemoglobin ABG Sodium ABG Potassium ABG Chloride ABG Glucose Oxyhemoglobin Carboxyhemoglobin Sodium Potassium Chloride Carbon Dioxide BUN Creatinine Glucose POC Glucose 128 H 119 H 122 H Lactic Acid Calcium Ferritin AST ALT Lactate Dehydrogenase C-Reactive Protein Total Protein Albumin Triglycerides Arterial Blood Glucose Arterial Blood Ionized Calcium Urine Creatinine Urine Total Protein Vancomycin Trough Coronavirus (PCR) SARS-CoV-2 IgG Ab 07/29/20 07/29/20 07/29/20 03:18 07:54 07:54 WBC 11.1 H RBC 3.49 L Hgb Hct MCH MCHC RDW Plt Count 139 L Lymph % (Auto) Lymph # (Auto) Seg Neutrophils % Seg Neuts % (Manual) 90.0 H Lymphocytes % (Manual) 1.0 L Eosinophils % (Manual) 5.0 H Nucleated RBC % Seg Neutrophils # Seg Neutrophils # Man 10.0 H Lymphocytes # (Manual) 0.1 L Eosinophils # (Manual) 0.6 H D-Dimer ABG pH POC ABG pCO2 69.5 H POC ABG pO2 109.3 H ABG pO2 ABG HCO3 ABG O2 Saturation ABG Base Excess ABG Hemoglobin 10.8 L ABG Oxyhemoglobin ABG Sodium ABG Potassium ABG Chloride 95.0 L ABG Glucose 138 H Oxyhemoglobin Carboxyhemoglobin Sodium Potassium Chloride 94.5 L Carbon Dioxide 40 H BUN Creatinine 0.5 L D Glucose 104 H POC Glucose Lactic Acid Calcium Ferritin AST ALT Lactate Dehydrogenase C-Reactive Protein Total Protein Albumin Triglycerides Arterial Blood Glucose 138 H Arterial Blood Ionized Calcium Urine Creatinine Urine Total Protein Vancomycin Trough Coronavirus (PCR) SARS-CoV-2 IgG Ab 07/29/20 07/29/20 07/29/20 11:05 18:17 19:41 WBC RBC Hgb Hct MCH MCHC RDW Plt Count Lymph % (Auto) Lymph # (Auto) Seg Neutrophils % Seg Neuts % (Manual) Lymphocytes % (Manual) Eosinophils % (Manual) Nucleated RBC % Seg Neutrophils # Seg Neutrophils # Man Lymphocytes # (Manual) Eosinophils # (Manual) D-Dimer ABG pH 7.305 L POC ABG pCO2 73.3 H 66.7 H POC ABG pO2 28.2 L 32.7 L ABG pO2 ABG HCO3 ABG O2 Saturation ABG Base Excess ABG Hemoglobin 11.8 L 11.5 L ABG Oxyhemoglobin ABG Sodium ABG Potassium ABG Chloride 94.0 L 95.0 L ABG Glucose 207 H 141 H Oxyhemoglobin Carboxyhemoglobin Sodium Potassium Chloride Carbon Dioxide BUN Creatinine Glucose POC Glucose 113 H Lactic Acid Calcium Ferritin AST ALT Lactate Dehydrogenase C-Reactive Protein Total Protein Albumin Triglycerides Arterial Blood Glucose 207 H 141 H Arterial Blood Ionized Calcium 4.5 L Urine Creatinine Urine Total Protein Vancomycin Trough Coronavirus (PCR) SARS-CoV-2 IgG Ab 07/29/20 07/30/20 07/30/20 23:28 04:47 05:28 WBC RBC Hgb Hct MCH MCHC RDW Plt Count Lymph % (Auto) Lymph # (Auto) Seg Neutrophils % Seg Neuts % (Manual) Lymphocytes % (Manual) Eosinophils % (Manual) Nucleated RBC % Seg Neutrophils # Seg Neutrophils # Man Lymphocytes # (Manual) Eosinophils # (Manual) D-Dimer ABG pH POC ABG pCO2 55.1 H POC ABG pO2 43.6 L ABG pO2 ABG HCO3 ABG O2 Saturation ABG Base Excess ABG Hemoglobin 11.9 L ABG Oxyhemoglobin ABG Sodium ABG Potassium ABG Chloride 96.0 L ABG Glucose 150 H Oxyhemoglobin Carboxyhemoglobin Sodium Potassium Chloride Carbon Dioxide BUN Creatinine Glucose POC Glucose 121 H 143 H Lactic Acid Calcium Ferritin AST ALT Lactate Dehydrogenase C-Reactive Protein Total Protein Albumin Triglycerides Arterial Blood Glucose 150 H Arterial Blood Ionized Calcium Urine Creatinine Urine Total Protein Vancomycin Trough Coronavirus (PCR) SARS-CoV-2 IgG Ab 07/30/20 07/30/20 07/30/20 08:18 12:00 14:17 WBC RBC Hgb Hct MCH MCHC RDW Plt Count Lymph % (Auto) Lymph # (Auto) Seg Neutrophils % Seg Neuts % (Manual) Lymphocytes % (Manual) Eosinophils % (Manual) Nucleated RBC % Seg Neutrophils # Seg Neutrophils # Man Lymphocytes # (Manual) Eosinophils # (Manual) D-Dimer ABG pH POC ABG pCO2 63.3 H 64.6 H POC ABG pO2 47.9 L 41.0 L ABG pO2 ABG HCO3 ABG O2 Saturation ABG Base Excess ABG Hemoglobin 10.5 L 10.2 L ABG Oxyhemoglobin 84.9 L ABG Sodium ABG Potassium ABG Chloride 97.0 L ABG Glucose 170 H 175 H Oxyhemoglobin Carboxyhemoglobin Sodium Potassium Chloride Carbon Dioxide BUN Creatinine Glucose POC Glucose 161 H Lactic Acid Calcium Ferritin AST ALT Lactate Dehydrogenase C-Reactive Protein Total Protein Albumin Triglycerides Arterial Blood Glucose 170 H 175 H Arterial Blood Ionized Calcium 4.4 L 4.4 L Urine Creatinine Urine Total Protein Vancomycin Trough Coronavirus (PCR) SARS-CoV-2 IgG Ab 07/30/20 07/30/20 07/30/20 15:15 15:15 15:15 WBC RBC 2.80 L Hgb 9.1 L Hct 26.0 L D MCH MCHC 35 H RDW Plt Count 101 L Lymph % (Auto) Lymph # (Auto) Seg Neutrophils % Seg Neuts % (Manual) 90.0 H Lymphocytes % (Manual) 7.0 L Eosinophils % (Manual) Nucleated RBC % Seg Neutrophils # Seg Neutrophils # Man Lymphocytes # (Manual) 0.4 L Eosinophils # (Manual) D-Dimer ABG pH POC ABG pCO2 POC ABG pO2 ABG pO2 ABG HCO3 ABG O2 Saturation ABG Base Excess ABG Hemoglobin ABG Oxyhemoglobin ABG Sodium ABG Potassium ABG Chloride ABG Glucose Oxyhemoglobin Carboxyhemoglobin Sodium Potassium Chloride 97.1 L Carbon Dioxide 32 H D BUN 39 H Creatinine 1.3 H D Glucose 167 H POC Glucose Lactic Acid Calcium 8.0 L Ferritin AST ALT Lactate Dehydrogenase C-Reactive Protein Total Protein Albumin Triglycerides 837 H Arterial Blood Glucose Arterial Blood Ionized Calcium Urine Creatinine Urine Total Protein Vancomycin Trough Coronavirus (PCR) SARS-CoV-2 IgG Ab 07/30/20 07/30/20 07/30/20 15:15 17:03 17:43 WBC RBC Hgb Hct MCH MCHC RDW Plt Count Lymph % (Auto) Lymph # (Auto) Seg Neutrophils % Seg Neuts % (Manual) Lymphocytes % (Manual) Eosinophils % (Manual) Nucleated RBC % Seg Neutrophils # Seg Neutrophils # Man Lymphocytes # (Manual) Eosinophils # (Manual) D-Dimer ABG pH POC ABG pCO2 POC ABG pO2 ABG pO2 ABG HCO3 ABG O2 Saturation ABG Base Excess ABG Hemoglobin ABG Oxyhemoglobin ABG Sodium ABG Potassium ABG Chloride ABG Glucose Oxyhemoglobin Carboxyhemoglobin Sodium Potassium Chloride Carbon Dioxide BUN Creatinine Glucose POC Glucose 171 H Lactic Acid 2.20 H* 3.60 H* Calcium Ferritin AST ALT Lactate Dehydrogenase C-Reactive Protein Total Protein Albumin Triglycerides Arterial Blood Glucose Arterial Blood Ionized Calcium Urine Creatinine Urine Total Protein Vancomycin Trough Coronavirus (PCR) SARS-CoV-2 IgG Ab 07/30/20 07/30/20 07/31/20 20:13 23:37 04:15 WBC RBC Hgb Hct MCH MCHC RDW Plt Count Lymph % (Auto) Lymph # (Auto) Seg Neutrophils % Seg Neuts % (Manual) Lymphocytes % (Manual) Eosinophils % (Manual) Nucleated RBC % Seg Neutrophils # Seg Neutrophils # Man Lymphocytes # (Manual) Eosinophils # (Manual) D-Dimer ABG pH 7.544 H 7.489 H POC ABG pCO2 POC ABG pO2 44.4 L 50.0 L ABG pO2 ABG HCO3 ABG O2 Saturation ABG Base Excess ABG Hemoglobin 10.4 L ABG Oxyhemoglobin ABG Sodium 135.3 L ABG Potassium ABG Chloride ABG Glucose 201 H 199 H Oxyhemoglobin Carboxyhemoglobin Sodium Potassium Chloride Carbon Dioxide BUN Creatinine Glucose POC Glucose 160 H Lactic Acid Calcium Ferritin AST ALT Lactate Dehydrogenase C-Reactive Protein Total Protein Albumin Triglycerides Arterial Blood Glucose 201 H 199 H Arterial Blood Ionized Calcium 4.2 L 4.4 L Urine Creatinine Urine Total Protein Vancomycin Trough Coronavirus (PCR) SARS-CoV-2 IgG Ab 07/31/20 07/31/20 07/31/20 05:16 05:16 05:28 WBC RBC 3.03 L Hgb 9.2 L Hct 27.6 L MCH MCHC RDW Plt Count 118 L Lymph % (Auto) 6.3 L Lymph # (Auto) 0.5 L Seg Neutrophils % Seg Neuts % (Manual) Lymphocytes % (Manual) Eosinophils % (Manual) Nucleated RBC % Seg Neutrophils # Seg Neutrophils # Man Lymphocytes # (Manual) Eosinophils # (Manual) D-Dimer ABG pH POC ABG pCO2 POC ABG pO2 ABG pO2 ABG HCO3 ABG O2 Saturation ABG Base Excess ABG Hemoglobin ABG Oxyhemoglobin ABG Sodium ABG Potassium ABG Chloride ABG Glucose Oxyhemoglobin Carboxyhemoglobin Sodium Potassium Chloride Carbon Dioxide BUN 57 H Creatinine 1.7 H Glucose 208 H POC Glucose 182 H Lactic Acid Calcium 8.3 L Ferritin AST 613 H ALT 760 H Lactate Dehydrogenase C-Reactive Protein Total Protein 5.6 L Albumin 2.2 L Triglycerides Arterial Blood Glucose Arterial Blood Ionized Calcium Urine Creatinine Urine Total Protein Vancomycin Trough Coronavirus (PCR) SARS-CoV-2 IgG Ab 07/31/20 07/31/20 07/31/20 11:02 14:14 14:14 WBC RBC Hgb Hct MCH MCHC RDW Plt Count Lymph % (Auto) Lymph # (Auto) Seg Neutrophils % Seg Neuts % (Manual) Lymphocytes % (Manual) Eosinophils % (Manual) Nucleated RBC % Seg Neutrophils # Seg Neutrophils # Man Lymphocytes # (Manual) Eosinophils # (Manual) D-Dimer 2522.40 H ABG pH POC ABG pCO2 POC ABG pO2 ABG pO2 ABG HCO3 ABG O2 Saturation ABG Base Excess ABG Hemoglobin ABG Oxyhemoglobin ABG Sodium ABG Potassium ABG Chloride ABG Glucose Oxyhemoglobin Carboxyhemoglobin Sodium Potassium Chloride Carbon Dioxide BUN Creatinine Glucose POC Glucose 200 H Lactic Acid Calcium Ferritin 964.8 H AST ALT Lactate Dehydrogenase C-Reactive Protein Total Protein Albumin Triglycerides Arterial Blood Glucose Arterial Blood Ionized Calcium Urine Creatinine Urine Total Protein Vancomycin Trough Coronavirus (PCR) SARS-CoV-2 IgG Ab 07/31/20 07/31/20 07/31/20 14:14 14:14 16:00 WBC RBC Hgb Hct MCH MCHC RDW Plt Count Lymph % (Auto) Lymph # (Auto) Seg Neutrophils % Seg Neuts % (Manual) Lymphocytes % (Manual) Eosinophils % (Manual) Nucleated RBC % Seg Neutrophils # Seg Neutrophils # Man Lymphocytes # (Manual) Eosinophils # (Manual) D-Dimer ABG pH POC ABG pCO2 POC ABG pO2 ABG pO2 ABG HCO3 ABG O2 Saturation ABG Base Excess ABG Hemoglobin ABG Oxyhemoglobin ABG Sodium ABG Potassium ABG Chloride ABG Glucose Oxyhemoglobin Carboxyhemoglobin Sodium Potassium Chloride Carbon Dioxide BUN Creatinine Glucose POC Glucose Lactic Acid Calcium Ferritin AST ALT Lactate Dehydrogenase 585 H C-Reactive Protein 49.00 H Total Protein Albumin Triglycerides Arterial Blood Glucose Arterial Blood Ionized Calcium Urine Creatinine 89.2 H Urine Total Protein 108 H Vancomycin Trough 28.2 H Coronavirus (PCR) SARS-CoV-2 IgG Ab 07/31/20 07/31/20 08/01/20 17:22 21:26 00:07 WBC RBC Hgb Hct MCH MCHC RDW Plt Count Lymph % (Auto) Lymph # (Auto) Seg Neutrophils % Seg Neuts % (Manual) Lymphocytes % (Manual) Eosinophils % (Manual) Nucleated RBC % Seg Neutrophils # Seg Neutrophils # Man Lymphocytes # (Manual) Eosinophils # (Manual) D-Dimer ABG pH POC ABG pCO2 POC ABG pO2 156.0 H ABG pO2 ABG HCO3 ABG O2 Saturation ABG Base Excess ABG Hemoglobin 9.6 L ABG Oxyhemoglobin 98.4 H ABG Sodium 135.9 L ABG Potassium ABG Chloride ABG Glucose 290 H Oxyhemoglobin Carboxyhemoglobin 0.4 L Sodium Potassium Chloride Carbon Dioxide BUN Creatinine Glucose POC Glucose 229 H 255 H Lactic Acid Calcium Ferritin AST ALT Lactate Dehydrogenase C-Reactive Protein Total Protein Albumin Triglycerides Arterial Blood Glucose 290 H Arterial Blood Ionized Calcium 4.5 L Urine Creatinine Urine Total Protein Vancomycin Trough Coronavirus (PCR) SARS-CoV-2 IgG Ab 08/01/20 08/01/20 08/01/20 04:46 05:30 05:30 WBC RBC 2.27 L Hgb 7.6 L Hct 20.9 L D MCH 34 H MCHC 37 H RDW Plt Count 85 L Lymph % (Auto) Lymph # (Auto) Seg Neutrophils % Seg Neuts % (Manual) 87.0 H Lymphocytes % (Manual) 2.0 L Eosinophils % (Manual) Nucleated RBC % 1.0 H Seg Neutrophils # Seg Neutrophils # Man Lymphocytes # (Manual) 0.1 L Eosinophils # (Manual) D-Dimer ABG pH 7.462 H POC ABG pCO2 POC ABG pO2 70.2 L ABG pO2 ABG HCO3 ABG O2 Saturation ABG Base Excess ABG Hemoglobin 8.7 L ABG Oxyhemoglobin ABG Sodium 135.7 L ABG Potassium 3.3 L ABG Chloride ABG Glucose 275 H Oxyhemoglobin Carboxyhemoglobin Sodium 132 L D Potassium 2.8 L* D Chloride Carbon Dioxide BUN 47 H Creatinine Glucose 217 H POC Glucose Lactic Acid Calcium 6.6 L D Ferritin AST 117 H ALT 408 H Lactate Dehydrogenase C-Reactive Protein Total Protein 4.3 L D Albumin 0.6 L Triglycerides 2335 H Arterial Blood Glucose 275 H Arterial Blood Ionized Calcium 4.5 L Urine Creatinine Urine Total Protein Vancomycin Trough Coronavirus (PCR) SARS-CoV-2 IgG Ab 08/01/20 08/01/20 08/01/20 05:34 09:33 11:50 WBC RBC Hgb Hct MCH MCHC RDW Plt Count Lymph % (Auto) Lymph # (Auto) Seg Neutrophils % Seg Neuts % (Manual) Lymphocytes % (Manual) Eosinophils % (Manual) Nucleated RBC % Seg Neutrophils # Seg Neutrophils # Man Lymphocytes # (Manual) Eosinophils # (Manual) D-Dimer ABG pH POC ABG pCO2 POC ABG pO2 ABG pO2 ABG HCO3 ABG O2 Saturation ABG Base Excess ABG Hemoglobin ABG Oxyhemoglobin ABG Sodium ABG Potassium ABG Chloride ABG Glucose Oxyhemoglobin Carboxyhemoglobin Sodium Potassium Chloride Carbon Dioxide BUN 57 H Creatinine Glucose 250 H POC Glucose 246 H 239 H Lactic Acid Calcium 8.2 L D Ferritin AST ALT Lactate Dehydrogenase C-Reactive Protein Total Protein Albumin Triglycerides 759 H Arterial Blood Glucose Arterial Blood Ionized Calcium Urine Creatinine Urine Total Protein Vancomycin Trough Coronavirus (PCR) SARS-CoV-2 IgG Ab 08/01/20 08/01/20 08/02/20 17:14 23:21 04:22 WBC RBC Hgb Hct MCH MCHC RDW Plt Count Lymph % (Auto) Lymph # (Auto) Seg Neutrophils % Seg Neuts % (Manual) Lymphocytes % (Manual) Eosinophils % (Manual) Nucleated RBC % Seg Neutrophils # Seg Neutrophils # Man Lymphocytes # (Manual) Eosinophils # (Manual) D-Dimer ABG pH 7.268 L POC ABG pCO2 56.6 H POC ABG pO2 ABG pO2 ABG HCO3 ABG O2 Saturation ABG Base Excess ABG Hemoglobin 8.4 L ABG Oxyhemoglobin ABG Sodium ABG Potassium 4.9 H ABG Chloride ABG Glucose 261 H Oxyhemoglobin Carboxyhemoglobin Sodium Potassium Chloride Carbon Dioxide BUN Creatinine Glucose POC Glucose 219 H 242 H Lactic Acid Calcium Ferritin AST ALT Lactate Dehydrogenase C-Reactive Protein Total Protein Albumin Triglycerides Arterial Blood Glucose 261 H Arterial Blood Ionized Calcium Urine Creatinine Urine Total Protein Vancomycin Trough Coronavirus (PCR) SARS-CoV-2 IgG Ab 08/02/20 08/02/20 08/02/20 05:05 06:37 06:37 WBC RBC 3.40 L Hgb 10.0 L Hct MCH MCHC RDW 16.2 H Plt Count 87 L Lymph % (Auto) Lymph # (Auto) Seg Neutrophils % Seg Neuts % (Manual) 82.0 H Lymphocytes % (Manual) 3.0 L Eosinophils % (Manual) Nucleated RBC % 2.0 H Seg Neutrophils # Seg Neutrophils # Man 9.0 H Lymphocytes # (Manual) 0.3 L Eosinophils # (Manual) D-Dimer ABG pH POC ABG pCO2 POC ABG pO2 ABG pO2 ABG HCO3 ABG O2 Saturation ABG Base Excess ABG Hemoglobin ABG Oxyhemoglobin ABG Sodium ABG Potassium ABG Chloride ABG Glucose Oxyhemoglobin Carboxyhemoglobin Sodium Potassium 5.3 H D Chloride Carbon Dioxide BUN 53 H Creatinine Glucose 267 H POC Glucose 254 H Lactic Acid Calcium 8.1 L Ferritin AST 43 H ALT 334 H Lactate Dehydrogenase C-Reactive Protein Total Protein 5.4 L D Albumin 1.9 L Triglycerides Arterial Blood Glucose Arterial Blood Ionized Calcium Urine Creatinine Urine Total Protein Vancomycin Trough Coronavirus (PCR) SARS-CoV-2 IgG Ab 08/02/20 08/02/20 08/02/20 06:37 11:34 17:04 WBC RBC Hgb Hct MCH MCHC RDW Plt Count Lymph % (Auto) Lymph # (Auto) Seg Neutrophils % Seg Neuts % (Manual) Lymphocytes % (Manual) Eosinophils % (Manual) Nucleated RBC % Seg Neutrophils # Seg Neutrophils # Man Lymphocytes # (Manual) Eosinophils # (Manual) D-Dimer ABG pH POC ABG pCO2 POC ABG pO2 ABG pO2 ABG HCO3 ABG O2 Saturation ABG Base Excess ABG Hemoglobin ABG Oxyhemoglobin ABG Sodium ABG Potassium ABG Chloride ABG Glucose Oxyhemoglobin Carboxyhemoglobin Sodium Potassium Chloride Carbon Dioxide BUN Creatinine Glucose POC Glucose 279 H 256 H Lactic Acid Calcium Ferritin AST ALT Lactate Dehydrogenase C-Reactive Protein Total Protein Albumin Triglycerides 717 H Arterial Blood Glucose Arterial Blood Ionized Calcium Urine Creatinine Urine Total Protein Vancomycin Trough Coronavirus (PCR) SARS-CoV-2 IgG Ab 08/02/20 08/03/20 08/03/20 23:23 01:25 04:49 WBC 13.2 H RBC 2.83 L Hgb 8.4 L Hct 26.3 L MCH MCHC RDW 16.4 H Plt Count Lymph % (Auto) Lymph # (Auto) Seg Neutrophils % Seg Neuts % (Manual) Lymphocytes % (Manual) 2.0 L Eosinophils % (Manual) Nucleated RBC % 1.0 H Seg Neutrophils # Seg Neutrophils # Man 7.8 H Lymphocytes # (Manual) 0.3 L Eosinophils # (Manual) D-Dimer ABG pH 7.302 L POC ABG pCO2 56.0 H POC ABG pO2 39.6 L ABG pO2 ABG HCO3 ABG O2 Saturation ABG Base Excess ABG Hemoglobin 9.1 L ABG Oxyhemoglobin ABG Sodium ABG Potassium 4.8 H ABG Chloride 108.0 H ABG Glucose 275 H Oxyhemoglobin Carboxyhemoglobin Sodium Potassium Chloride Carbon Dioxide BUN Creatinine Glucose POC Glucose 214 H Lactic Acid Calcium Ferritin AST ALT Lactate Dehydrogenase C-Reactive Protein Total Protein Albumin Triglycerides Arterial Blood Glucose 275 H Arterial Blood Ionized Calcium Urine Creatinine Urine Total Protein Vancomycin Trough Coronavirus (PCR) SARS-CoV-2 IgG Ab 08/03/20 08/03/20 08/03/20 04:49 04:49 05:11 WBC RBC Hgb Hct MCH MCHC RDW Plt Count Lymph % (Auto) Lymph # (Auto) Seg Neutrophils % Seg Neuts % (Manual) Lymphocytes % (Manual) Eosinophils % (Manual) Nucleated RBC % Seg Neutrophils # Seg Neutrophils # Man Lymphocytes # (Manual) Eosinophils # (Manual) D-Dimer ABG pH POC ABG pCO2 POC ABG pO2 ABG pO2 ABG HCO3 ABG O2 Saturation ABG Base Excess ABG Hemoglobin ABG Oxyhemoglobin ABG Sodium ABG Potassium ABG Chloride ABG Glucose Oxyhemoglobin Carboxyhemoglobin Sodium Potassium Chloride Carbon Dioxide BUN 39 H Creatinine Glucose 263 H POC Glucose 230 H Lactic Acid Calcium 8.1 L Ferritin AST ALT 242 H Lactate Dehydrogenase C-Reactive Protein Total Protein 5.4 L Albumin 2.2 L Triglycerides 500 H Arterial Blood Glucose Arterial Blood Ionized Calcium Urine Creatinine Urine Total Protein Vancomycin Trough Coronavirus (PCR) SARS-CoV-2 IgG Ab 08/03/20 11:55 WBC RBC Hgb Hct MCH MCHC RDW Plt Count Lymph % (Auto) Lymph # (Auto) Seg Neutrophils % Seg Neuts % (Manual) Lymphocytes % (Manual) Eosinophils % (Manual) Nucleated RBC % Seg Neutrophils # Seg Neutrophils # Man Lymphocytes # (Manual) Eosinophils # (Manual) D-Dimer ABG pH POC ABG pCO2 POC ABG pO2 ABG pO2 ABG HCO3 ABG O2 Saturation ABG Base Excess ABG Hemoglobin ABG Oxyhemoglobin ABG Sodium ABG Potassium ABG Chloride ABG Glucose Oxyhemoglobin Carboxyhemoglobin Sodium Potassium Chloride Carbon Dioxide BUN Creatinine Glucose POC Glucose 238 H Lactic Acid Calcium Ferritin AST ALT Lactate Dehydrogenase C-Reactive Protein Total Protein Albumin Triglycerides Arterial Blood Glucose Arterial Blood Ionized Calcium Urine Creatinine Urine Total Protein Vancomycin Trough Coronavirus (PCR) SARS-CoV-2 IgG Ab Chest x-ray: image reviewed (increased PTX & Sub-Q emphysema) Allied health notes reviewed: nursing
--- NOTE | 2020-08-03 14:50 | Progress Note ---
Assessment and Plan Assessment and plan: -Severe COVID-19 PNA -On vent. Sedated -ID following -- Acute hypoxic respiratory failure Mechanically ventilated --Pneumothorax and subcutaneous emphysema Worse today Chest tube management as per plastics nurse Surgery evaluation -- GERD (gastroesophageal reflux disease) cont Pantoprazole --SLE (systemic lupus erythematosus related syndrome) Continue home medications-hydroxychloroquine -- DVT prophylaxis Lovenox 30 mg twice daily -- Full code status brief History: 50-year-old female with a past medical history of asthma, hypertension, and lupus complains of generalized body weakness, fever and shortness of breath. Patient states the symptoms started right after she was discharged from [facility] on 07/05. She has associated wheezing, fever, cough and she has been using her inhalers with no significant effect. She also has associated diarrhea. Of note, she was hospitalized here in [facility] on 06/28 for asthma exacerbation and had a negative Covid test during the admission. She was treated and discharged. She presented to [facility] for further evaluation after discharge from here and over there, she was found to have positive COVID-19 test and she was placed on steroids and subsequently discharged on Eliquis prophylaxis for DVT. She states that she did not receive remdesivir during the admission. She was discharged from [facility] on 07/05. She went home and felt worse. She said that she passed out about 2 times. Due to persistent symptoms, she called EMS who brought her to [facility] for further evaluation. Daily course: 07/07. Patient seen and examined at bedside this morning. Patient is wheezing and slightly short of breath. Change steroids to Solu-Medrol 60 every 6. Added formoterol and budesonide. ID evaluation pending. Started patient on remdesiv ir as she is short of breath. 07/07: Placed on BIPAP this AM. Will need pulm evaluation. Solumedrol 60mg q6. STAT blood gas ordered. She will be transferred to [facility]. 07/08: Patient took oxygen off and attempts to go to the bathroom and subsequently became hypoxemic with sats down into the low 80s. Patient became weak short of breath. After that time patient had persistent coughing and cannot maintain sats until nonrebreather was placed. Patient is transferred to the ICU unit and monitored for respiratory failure possibly requiring intubation. 07/09: ID recommended for convalescent plasma, ordered. Patient intubated overnight. Continue to monitor clinically, scheduled lab, follow inflammatory markers 07/10: Wait for convalescent plasma transfusion, wean off from ventilator as tolerated 07/11: Called patient's daughter and updated. Continue to wean off vent as tolerated, continue tube feeding, monitor vital sign CBC BMP daily. 07/12: remains intubated and sedated. follow inflammatory markers - wean off vent as tolerated 07/13: wean off vent as tolerated, cxr in the am. reviewed vitals 07/14: remains intubated, has not received convalescent plasma yet. Reviewed vitals, tolerating tube feeding. Wean off vent per critical care as tolerated. 07/15: cont to provide supportive care, wean off vent as tolerated - difficult to wean off. 07/16: CXR findings improving, cont to wean off vent 07/17: Follow inflammatory markers, monitor off antibiotics. Wean off vent per pulmonary as tolerated 07/18: Wean off vent per pulmonary as tolerated,Follow inflammatory markers, monitor off antibiotics. 07/19: Wean off vent per pulmonary as tolerated,Follow inflammatory markers, monitor off antibiotics. SBT trial 07/20: Wean off vent as tolerated, continue supportive care, follow inflammatory markers 07/21: continue supportive care, follow inflammatory markers, wean off vent as tolerated 07/22: Continue to wean off from ventilator as tolerated per pulmonary recommendation, follow inflammatory markers. Repeat CBC BMP in the morning. We will repeat Covid test tomorrow to see if patient cleared the infection. 07/23. Continue to wean off from ventilator as tolerated per pulmonary recommendation, follow inflammatory markers. Currently AC mode, rate 16, tidal volume 450 with FiO2 75%vand PEEP 14 07/24/2020. Continue ventilatory support with AC mode, rate 16, tidal volume 450, FiO2 100% and PEEP of 16. Continue Brovana and Pulmicort. Continue IV steroids 40 mg IV every 8 hours. Anticoagulation with Lovenox 30 mg twice daily. Patient currently sedated with Versed and fentanyl. 07/25/2020. Continue ventilatory support with AC mode, rate 16, tidal volume 450, FiO2 75% and PEEP of 16. Continue Brovana and Pulmicort. Continue IV steroids 40 mg IV every 8 hours. Anticoagulation with Lovenox 30 mg twice daily. Patient currently sedated with Versed and fentanyl. Continue to wean per pulmonary recommendations. 07/26/2020. Continue ventilatory support with AC mode, rate 16, tidal volume 450, FiO2 85% and PEEP of 16. Continue Brovana and Pulmicort. Continue IV steroids 40 mg IV every 8 hours. Anticoagulation with Lovenox 30 mg twice daily. Patient currently sedated with Versed and fentanyl. Continue to wean per protocol. 07/27/2020. Continue ventilatory support with AC mode, rate 16, tidal volume 450, FiO2 100% and PEEP of 16. Patient with increased oxygen requirements the past couple of days. Continue Brovana and Pulmicort. Continue IV steroids 40 mg IV every 8 hours. Anticoagulation with Lovenox 30 mg twice daily. Patient currently sedated with Versed and fentanyl. Dose of Lasix given by pulmonary yesterday to achieve negative fluid balance. Follow-up serial chest x-ray 07/28/2020. Continue ventilatory support with AC mode, rate 16, tidal volume 450, FiO2 100% and PEEP of 16. Wean FiO2 per protocol. Continue Brovana and Pulmicort. Continue IV steroids 40 mg IV every 8 hours. Anticoagulation with Lovenox 30 mg twice daily. Patient currently sedated with Versed and fentanyl. 07/29/2020. Continue ventilatory support with AC mode, rate 16, tidal volume 450, FiO2 100% and PEEP of 16. Wean FiO2 per protocol. Continue Brovana and Pulmicort. Continue IV steroids 40 mg IV every 8 hours. Anticoagulation with Lovenox 30 mg twice daily. Wean sedation as tolerated. 07/30. Continue ventilatory support with AC mode, rate 16, tidal volume 450, FiO2 100% and PEEP of 16. Wean FiO2 per protocol. Continue Brovana and Pulmicort. Continue IV steroids 40 mg IV every 8 hours. Anticoagulation with Lovenox 30 mg twice daily. Wean sedation as tolerated. 07/31. Still ventilated. On sedatives. Renal function worse today. nephrology has been consulted. Started patient on IV hydration. BC - GN rods and staph aureus. She is on vancomycin. 08/01. Still ventilated. On sedatives. Renal function worse today. nephrology has been consulted. Started patient on IV hydration. BC - GN rods and staph aureus. She is on vancomycin. 08/02. Chest xray shows worsening pneumothorax. Chest tube in place. On vent and sedated 08/03. Continue ventilatory support with AC mode, rate 30, tidal volume 4000, FiO2 100% and PEEP of 16. Wean FiO2 per protocol. Continue Brovana and Pulmicort. Anticoagulation with Lovenox 30 mg twice daily. Wean sedation as tolerated. 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 The aggregate critical care time was [32] minutes. This time is in addition to time spent performing reported procedures but includes the following: [x] Data Review and interpretation [x] Patient assessment and monitoring of vital signs [x] Documentation [x] Medication orders and management - Patient Problems (1) COVID-19 Current Visit: Yes Status: Acute (2) Acute respiratory failure Current Visit: No Status: Acute Qualifiers: Respiratory failure complication: unspecified whether with hypoxia or hypercapnia Qualified Code(s): J96.00 - Acute respiratory failure, unspecified whether with hypoxia or hypercapnia (3) GERD (gastroesophageal reflux disease) Current Visit: No Status: Chronic Qualifiers: Esophagitis presence: without esophagitis Qualified Code(s): K21.9 - Gastro-esophageal reflux disease without esophagitis (4) SLE (systemic lupus erythematosus related syndrome) Current Visit: No Status: Chronic (5) DVT prophylaxis Current Visit: No Status: Acute (6) Full code status Current Visit: No Status: Acute History Interval history: Nonresponsive On sedatives Intubated Hospitalist Physical - Physical exam Narrative exam: VITAL SIGNS: Reviewed. GENERAL: Sedated and intubated HEAD: No signs of head trauma. EYES: Pupils are equal. Extraocular motions intact. MOUTH: Oropharynx is normal. NECK: No adenopathy, no JVD. CHEST: Diffuse expiratory wheezes CARDIAC: Normal S1 and S2, without murmurs, gallops, or rubs. VASCULAR: trace edema ABDOMEN: Soft, non tender and non distended. Bowel Sounds normal. NEUROLOGIC EXAM: Sedated SKIN: No obvious lesions - Constitutional Vitals: Temp Pulse Resp BP Pulse Ox 98.7 F 83 30 H 111/61 98 08/03/20 12:00 08/03/20 14:37 08/03/20 14:37 08/03/20 13:46 08/03/20 13:46 Results - Labs CBC & Chem 7: 08/03/20 04:49 08/03/20 04:49 Labs: Laboratory Last Values WBC 13.2 K/mm3 (4.5-11.0) H 08/03/20 04:49 RBC 2.83 M/mm3 (3.65-5.03) L 08/03/20 04:49 Hgb 8.4 gm/dl (10.1-14.3) L 08/03/20 04:49 Hct 26.3 % (30.3-42.9) L 08/03/20 04:49 MCV 93 fl (79-97) 08/03/20 04:49 MCH 30 pg (28-32) 08/03/20 04:49 MCHC 32 % (30-34) 08/03/20 04:49 RDW 16.4 % (13.2-15.2) H 08/03/20 04:49 Plt Count 149 K/mm3 (140-440) 08/03/20 04:49 Lymph % (Auto) Learning And Development Specialist 08/02/20 06:37 Appling % (Auto) Learning And Development Specialist 08/02/20 06:37 Eos % (Auto) Learning And Development Specialist 08/02/20 06:37 Baso % (Auto) Learning And Development Specialist 08/02/20 06:37 Lymph # (Auto) Learning And Development Specialist 08/02/20 06:37 [place] # (Auto) Learning And Development Specialist 08/02/20 06:37 Eos # (Auto) Learning And Development Specialist 08/02/20 06:37 Baso # (Auto) Learning And Development Specialist 08/02/20 06:37 Add Manual Diff Complete 08/03/20 04:49 Total Counted 100 08/03/20 04:49 Seg Neutrophils % Learning And Development Specialist 08/03/20 04:49 Seg Neuts % (Manual) 59.0 % (40.0-70.0) 08/03/20 04:49 Band Neutrophils % 3.0 % 08/03/20 04:49 Lymphocytes % (Manual) 2.0 % (13.4-35.0) L 08/03/20 04:49 Reactive Lymphs % (Man) 0 % 08/03/20 04:49 Monocytes % (Manual) 1.0 % (0.0-7.3) 08/03/20 04:49 Eosinophils % (Manual) 2.0 % (0.0-4.3) 08/03/20 04:49 Basophils % (Manual) 0 % (0.0-1.8) 08/03/20 04:49 Metamyelocytes % 9.0 % 08/03/20 04:49 Myelocytes % 24.0 % 08/03/20 04:49 Promyelocytes % 0 % 08/03/20 04:49 Blast Cells % 0 % 08/03/20 04:49 Nucleated RBC % 1.0 % (0.0-0.9) H 08/03/20 04:49 Seg Neutrophils # Learning And Development Specialist 08/02/20 06:37 Seg Neutrophils # Man 7.8 K/mm3 (1.8-7.7) H 08/03/20 04:49 Band Neutrophils # 0.4 K/mm3 08/03/20 04:49 Lymphocytes # (Manual) 0.3 K/mm3 (1.2-5.4) L 08/03/20 04:49 Abs React Lymphs (Man) 0.0 K/mm3 08/03/20 04:49 Monocytes # (Manual) 0.1 K/mm3 (0.0-0.8) 08/03/20 04:49 Eosinophils # (Manual) 0.3 K/mm3 (0.0-0.4) 08/03/20 04:49 Basophils # (Manual) 0.0 K/mm3 (0.0-0.1) 08/03/20 04:49 Metamyelocytes # 1.2 K/mm3 08/03/20 04:49 Myelocytes # 3.2 K/mm3 08/03/20 04:49 Promyelocytes # 0.0 K/mm3 08/03/20 04:49 Blast Cells # 0.0 K/mm3 08/03/20 04:49 WBC Morphology Not Reportable 08/02/20 06:37 Hypersegmented Neuts Not Reportable 08/03/20 04:49 Hyposegmented Neuts Not Reportable 08/03/20 04:49 Hypogranular Neuts Not Reportable 08/03/20 04:49 Smudge Cells Not Reportable 08/03/20 04:49 Toxic Granulation Not Reportable 08/03/20 04:49 Toxic Vacuolation Not Reportable 08/03/20 04:49 Dohle Bodies Not Reportable 08/03/20 04:49 Pelger-Huet Anomaly Not Reportable 08/03/20 04:49 Savanna Rods Not Reportable 08/03/20 04:49 Platelet Estimate Consistent w auto 08/03/20 04:49 Clumped Platelets Not Reportable 08/03/20 04:49 Plt Clumps, EDTA Not Reportable 08/03/20 04:49 Large Platelets Few 08/03/20 04:49 Giant Platelets Not Reportable 08/03/20 04:49 Platelet Satelliting Not Reportable 08/03/20 04:49 Plt Morphology Comment Not Reportable 08/03/20 04:49 RBC Morphology Not Reportable 08/03/20 04:49 Dimorphic RBCs Not Reportable 08/03/20 04:49 Polychromasia Few 08/03/20 04:49 Hypochromasia Not Reportable 08/03/20 04:49 Poikilocytosis 1+ 08/03/20 04:49 Anisocytosis 1+ 08/03/20 04:49 Microcytosis Not Reportable 08/03/20 04:49 Macrocytosis Not Reportable 08/03/20 04:49 Spherocytes Not Reportable 08/03/20 04:49 Pappenheimer Bodies Not Reportable 08/03/20 04:49 Sickle Cells Not Reportable 08/03/20 04:49 Target Cells Not Reportable 08/03/20 04:49 Tear Drop Cells Few 08/03/20 04:49 Ovalocytes Not Reportable 08/03/20 04:49 Helmet Cells Not Reportable 08/03/20 04:49 [place] Bodies Not Reportable 08/03/20 04:49 Streetman Rings Not Reportable 08/03/20 04:49 [place] Cells Not Reportable 08/03/20 04:49 Bite Cells Not Reportable 08/03/20 04:49 Crenated Cell Not Reportable 08/03/20 04:49 Elliptocytes Few 08/03/20 04:49 Acanthocytes (Spur) Not Reportable 08/03/20 04:49 Rouleaux Not Reportable 08/03/20 04:49 Hemoglobin C Crystals Not Reportable 08/03/20 04:49 Schistocytes Not Reportable 08/03/20 04:49 Malaria parasites Not Reportable 08/03/20 04:49 Junaid Bodies Not Reportable 08/03/20 04:49 Hem Pathologist Commnt Sent to pathology 08/03/20 04:49 D-Dimer 2522.40 ng/mlDDU (0-234) H 07/31/20 14:14 ABG pH 7.302 (7.320-7.450) L 08/03/20 01:25 POC ABG pCO2 56.0 mmHg (32.0-48.0) H 08/03/20 01:25 ABG pCO2 81.7 mm Hg 07/28/20 04:15 POC ABG pO2 39.6 mmHg (83-108) L 08/03/20 01:25 ABG pO2 130.3 mm Hg (80.0-90.0) H 07/28/20 04:15 POC ABG HCO3 27.1 08/03/20 01:25 ABG HCO3 40.9 mmol/L (20.0-26.0) H 07/28/20 04:15 ABG O2 Saturation 98.1 % (95.0-99.0) 07/28/20 04:15 ABG O2 Content 8.2 (0.0-44) 07/28/20 04:15 POC ABG Base Excess 0.2 08/03/20 01:25 ABG Base Excess 13.5 mmol/L (-2.0-3.0) H 07/28/20 04:15 ABG Hemoglobin 9.1 (12.0-17.5) L 08/03/20 01:25 ABG Oxyhemoglobin 98.4 (94-98) H 07/31/20 21:26 ABG Carboxyhemoglobin 1.7 % (0.0-5.0) 07/28/20 04:15 ABG Methemoglobin 0.3 (0.0-1.5) 07/31/20 21:26 ABG Sodium 139.3 mmol/L (136.0-145.0) 08/03/20 01:25 ABG Potassium 4.8 mmol/L (3.40-4.50) H 08/03/20 01:25 ABG Chloride 108.0 mmol/L (98-107) H 08/03/20 01:25 ABG Glucose 275 mg/dL (65-95) H 08/03/20 01:25 Oxyhemoglobin 95.8 % (95.0-99.0) 07/28/20 04:15 Carboxyhemoglobin 0.4 (0.5-1.5) L 07/31/20 21:26 FiO2 100.0 12/05/20 01:25 Sodium 139 mmol/L (137-145) 08/03/20 04:49 Potassium 4.8 mmol/L (3.6-5.0) 08/03/20 04:49 Chloride 106.1 mmol/L (98-107) 08/03/20 04:49 Carbon Dioxide 29 mmol/L (22-30) 08/03/20 04:49 Anion Gap 9 mmol/L 08/03/20 04:49 BUN 39 mg/dL (7-17) H 08/03/20 04:49 Creatinine 0.7 mg/dL (0.6-1.2) 08/03/20 04:49 Estimated GFR > 60 ml/min 08/03/20 04:49 BUN/Creatinine Ratio 56 % 08/03/20 04:49 Glucose 263 mg/dL (65-100) H 08/03/20 04:49 POC Glucose 238 mg/dL (70-105) H 08/03/20 11:55 Lactic Acid 1.80 mmol/L (0.7-2.0) 07/31/20 14:14 Calcium 8.1 mg/dL (8.4-10.2) L 08/03/20 04:49 Phosphorus 3.20 mg/dL (2.5-4.5) 07/08/20 16:13 Magnesium 2.20 mg/dL (1.7-2.3) 07/08/20 16:13 Ferritin 964.8 ng/mL (10.0-200.0) H 07/31/20 14:14 Total Bilirubin 0.30 mg/dL (0.1-1.2) 08/03/20 04:49 AST 33 units/L (5-40) 08/03/20 04:49 ALT 242 units/L (7-56) H 08/03/20 04:49 Alkaline Phosphatase 97 units/L (35-129) 08/03/20 04:49 Lactate Dehydrogenase 585 units/L (91-180) H 07/31/20 14:14 C-Reactive Protein 49.00 mg/dL (0.00-1.30) H 07/31/20 14:14 Total Protein 5.4 g/dL (6.3-8.2) L 08/03/20 04:49 Albumin 2.2 g/dL (3.9-5) L 08/03/20 04:49 Albumin/Globulin Ratio 0.7 % 08/03/20 04:49 Triglycerides 500 mg/dL (2-149) H 08/03/20 04:49 Procalcitonin 119.84 ng/mL (<0.15) 07/30/20 17:43 Arterial Blood Glucose 275 mg/dL (65-95) H 08/03/20 01:25 Arterial Blood Ionized Calcium 4.7 mg/dL (4.6-5.3) 08/03/20 01:25 Urine Color Yellow (Yellow) 07/11/20 09:30 Urine Turbidity Clear (Clear) 07/11/20 09:30 Urine pH 5.0 (5.0-7.0) 07/11/20 09:30 Ur Specific Declo 1.028 (1.003-1.030) 07/11/20 09:30 Urine Protein <15 mg/dl mg/dL (Negative) 07/11/20 09:30 Urine Glucose (UA) Neg mg/dL (Negative) 07/11/20 09:30 Urine Ketones Neg mg/dL (Negative) 07/11/20 09:30 Urine Blood Neg (Negative) 07/11/20 09:30 Urine Nitrite Neg (Negative) 07/11/20 09:30 Urine Bilirubin Neg (Negative) 07/11/20 09:30 Urine Urobilinogen 2.0 mg/dL (<2.0) 07/11/20 09:30 Ur Leukocyte Esterase Neg (Negative) 07/11/20 09:30 Urine WBC (Auto) 1.0 /HPF (0.0-6.0) 07/11/20 09:30 Urine RBC (Auto) 1.0 /HPF (0.0-6.0) 07/11/20 09:30 U Epithel Cells (Auto) 1.0 /HPF (0-13.0) 07/11/20 09:30 Urine Mucus Few /HPF 07/11/20 09:30 Urine Creatinine 89.2 mg/dL (0.1-20.0) H 07/31/20 16:00 Urine Sodium 26 mmol/L 07/31/20 16:00 Urine Total Protein 108 mg/dL (5-11.8) H 07/31/20 16:00 Vancomycin Trough 28.2 ug/mL (5.0-20.0) H 07/31/20 14:14 Random Vancomycin 7.9 ug/mL (0-40.0) 08/02/20 06:37 Coronavirus (PCR) Positive (Negative) A 07/23/20 Unknown SARS-CoV-2 IgG Ab Reactive (NonReactive) A 07/15/20 14:30 Blood Type O POSITIVE 07/09/20 15:30 Antibody Screen Negative 07/09/20 15:30 Microbiology: Microbiology 07/30/20 17:43 Peripheral/Venous Blood Culture - Preliminary NO GROWTH AFTER 72 HOURS 07/30/20 17:43 Peripheral/Venous Blood Culture - Preliminary NO GROWTH AFTER 72 HOURS - Diagnostic Impressions Diagnostic Impressions: Echocardiogram 07/19/20 13:13 Transthoracic Echocardiogram Indication: CHF BP: 106/58 Conclusions *The left ventricular systolic function is within normal limits. There are no wall motion abnormalities observed. *The estimated ejection fraction is 60-65%. *Normal left ventricular diastolic filling is observed. Findings Procedure Info: The study quality is fair. Left Ventricle: The left ventricular chamber size, wall thickness and systolic function are within normal limits. There are no wall motion abnormalities observed. Ejection fraction is normal. The estimated ejection fraction is 60-65%. Normal left ventricular diastolic filling is observed. Left Atrium: The left atrium is normal in size with no visual thrombus identified. Right Ventricle: The right ventricular chamber size and systolic function are within normal limits. Right Atrium: The right atrium appears normal. Aortic Valve: The aortic valve is trileaflet. The leaflets are thin with normal excursion. There is no aortic stenosis or regurgitation present. Mitral Valve: The mitral valve leaflets are mildly thickened. There is trace of mitral regurgitation. There is no evidence of mitral stenosis. Tricuspid Valve: The tricuspid valve leaflets are normal. There is trace tricuspid regurgitation. The right ventricular systolic pressure is calculated at 14 mmHg. There is no tricuspid stenosis. Pulmonic Valve: The pulmonic valve appears normal. There is mild pulmonic regurgitation. There is no pulmonic stenosis. Pericardium: The pericardium appears normal. Aorta: The aorta appears normal. Pulmonary Artery: The main pulmonary artery appears normal. Venous: The inferior vena cava appears normal in size. There is a greater than 50% respiratory change in the inferior vena cava dimension. Measurements Chambers 2D Name Value Normal Range IVSd (2D) 1.08 cm (0.6 - 1.1) LVPWd (2D) 0.91 cm (0.6 - 1.1) LVIDd (2D) 4.61 cm (3.7 - 5.6) LVIDs (2D) 3.12 cm (2 - 3.8) LV FS (2D) 32.38 % - EF Teichholz (2D) 60.72 % - Ao root diameter (2D) 3.01 cm (2 - 3.7) Volumes/Mass Name Value Normal Range LA ESV SP 4CH (A/L) 57.18 ml - LA ESV SP 2CH (A/L) 62.63 ml - LA ESV BP (A/L) 60.68 ml - LA ESV BP (A/L) index 28.22 ml/m2 - LA ESV SP 4CH (MOD) 51.17 ml - LA ESV SP 2CH (MOD) 57.8 ml - LA ESV BP (MOD) 54.73 ml - LA ESV BP (MOD) index 25.45 ml/m2 - LV EDV SP 4CH (MOD) 115.34 ml - LV ESV SP 4CH (MOD) 43.26 ml - EF SP 4CH (MOD) 62.5 % - LV EDV SP 2CH (MOD) 43.71 ml - LV ESV SP 2CH (MOD) 17.14 ml - EF SP 2CH (MOD) 60.79 % - LV EDV BP 73.15 ml - LV ESV BP 27.92 ml - BP EF (MOD) 61.83 % - Diastolic/Systolic Function Name Value Normal Range MV E-wave Vmax 0.88 m/sec - MV deceleration time 157.66 msec - MV A-wave Vmax 0.91 m/sec - MV E:A ratio 0.96 ratio - Aortic Valve Name Value Normal Range AV Vmax 1.54 m/sec - AV VTI 31.46 cm - AV peak gradient 9.51 mmHg - AV mean gradient 5.1 mmHg - LVOT diameter 1.95 cm - LVOT Vmax 1.21 m/sec - LVOT VTI 27.59 cm - LVOT peak gradient 5.83 mmHg - LVOT mean gradient 3.3 mmHg - SV LVOT 82.76 ml - SMITH (continuity Vmax) 2.35 cm2 - SMITH (continuity VTI) 2.63 cm2 - Ascending Ao 2.94 cm - Tricuspid Valve Name Value Normal Range TV E-wave Vmax 0.49 m/sec - TR Vmax 1.72 m/sec - TR peak gradient 11.86 mmHg - RAP 3 mmHg - RVSP 14 mmHg - IVC diameter 1.91 cm (1.2 - 2.3) Pulmonic Valve/Qp:Qs Name Value Normal Range PV Vmax 0.94 m/sec - PV peak gradient 3.54 mmHg - NV end-diastolic Vmax 0.54 m/sec - RVOT Vmax 0.68 m/sec - RVOT VTI 13.18 cm - RVOT peak gradient 1.82 mmHg - PV acceleration time 117.98 msec - Tejada/IV: Voiding Method Indwelling Catheter IV Catheter Type [Left Upper PICC Line arm] IV Catheter Type [Right INT / Saline Lock Forearm] IV Catheter Type [Left Wrist] INT / Saline Lock IV Catheter Type [Left Hand] Peripheral IV Active Medications - Current Medications Current Medications: Generic Name Dose Route Start Last Admin Trade Name Freq PRN Reason Stop Dose Admin Acetaminophen 650 mg 07/06/20 13:39 07/27/20 18:34 Tylenol PO 650 mg Q4H PRN Administration Pain MILD(1-3)/Fever >100.5/WILLETT Albuterol/Ipratropium 1 ampul 07/26/20 14:00 08/03/20 14:11 Duoneb *Not For Prn Use* IH 1 ampul TIDRT ROMMEL Administration Alprazolam 0.5 mg 07/07/20 12:28 07/27/20 03:15 Xanax PO 0.5 mg Q8H PRN Administration Anxiety Lipase/Protease/Amylase 1 each 07/08/20 14:50 Pancremaria del rosario Price 10,500 Unit FEEDTUBE PRN PRN For Clogged Feeding Tube Arformoterol Tartrate 15 mcg 07/07/20 09:15 08/03/20 08:45 Brodeep Adams IH 15 mcg Q12HRT ROMMEL Administration Ascorbic Acid 500 mg 07/08/20 22:00 08/03/20 10:04 Vitamin C PO 500 mg BID ROMMEL Administration Aspirin 81 mg 07/06/20 14:00 08/03/20 10:04 Baby Aspirin PO 81 mg QDAY ROMMEL Administration Budesonide 0.5 mg 07/07/20 09:15 08/03/20 08:45 Pulmicort IH 0.5 mg Q12HRT ROMMEL Administration Chlordiazepoxide HCl 75 mg 07/30/20 13:00 08/03/20 12:14 Librium PO 75 mg Q8H ROMMEL Administration Dextrose 50 ml 07/12/20 16:58 D50w (25gm) Syringe IV Q30MIN PRN Hypoglycemia Protocol Docusate Sodium 100 mg 07/16/20 22:00 08/03/20 10:04 Colace PO 100 mg BID ROMMEL Administration Enoxaparin Sodium 30 mg 07/06/20 15:00 08/03/20 10:03 Enoxaparin SUB-Q 30 mg BID ROMMEL Administration Protocol Fentanyl 50 mcg 07/08/20 13:16 07/29/20 15:45 Sublimaze IV 50 mcg Q10MIN PRN Administration ANALGESIA Gabapentin 600 mg 07/25/20 14:00 08/03/20 14:23 Gabapentin PO 600 mg Q8HR ROMMEL Administration Hydrophilic Ointment 1 applic 07/08/20 13:16 07/22/20 23:01 Vaseline Lip Therapy TP 1 applic Q2HR PRN Administration Dry Lips Hydroxychloroquine Sulfate 200 mg 07/07/20 10:00 08/03/20 10:04 Plaquenil PO 200 mg QDAY ROMMEL Administration Fentanyl Citrate 2,000 mcg in 100 mls @ 4.825 mls/hr 07/08/20 14:00 08/03/20 14:23 Fentanyl Drip Premix IV 4 mcg/kg/hr TITR ROMMEL 19.3 mls/hr Administration Protocol 1 MCG/KG/HR Midazolam HCl 100 mg/ Sodium 100 mls @ 2 mls/hr 07/08/20 15:00 08/03/20 05:06 Chloride IV 8 mg/hr TITR ROMMEL 8 mls/hr Administration Protocol 2 MG/HR Sodium Chloride 500 mls @ 10 mls/hr 07/15/20 15:00 Nacl 0.9% 500 Ml IV DIRECT ROMMEL Norepinephrine 4 mg in 250 mls @ 7.5 mls/hr 07/27/20 05:00 Levophed Drip 4 Mg/Ns 250 Ml IV TITR ROMMEL Protocol 2 MCG/MIN Vasopressin 20 unit/ Sodium 101 mls @ 9.09 mls/hr 07/30/20 13:00 08/03/20 05:53 Chloride IV 0.03 units/min TITR ROMMEL 9.09 mls/hr Administration Protocol 0.03 UNITS/MIN Phenylephrine HCl 100 mg/ 100 mls @ 3 mls/hr 07/30/20 15:00 08/03/20 09:51 Sodium Chloride IV 60 mcg/min TITR ROMMEL 3.6 mls/hr Administration Protocol 50 MCG/MIN Sodium Chloride 1,000 mls @ 75 mls/hr 07/31/20 08:30 08/03/20 04:18 Nacl 0.9% 1000 Ml IV 75 mls/hr DIRECT ROMMEL Administration Propofol 1,000 mg in 100 mls @ 2.946 mls/hr 07/31/20 20:00 08/03/20 12:34 Diprivan 10 Mg/Ml IV 50 mcg/kg/min DIRECT ROMMEL 29.46 mls/hr Administration Protocol 5 MCG/KG/MIN Dopamine HCl/Dextrose 800 mg in 250 mls @ 3.679 mls/hr 07/31/20 22:00 Intropin Drip 800 Mg/D5w 250 Ml IV TITR ROMMEL Protocol 2 MCG/KG/MIN Ceftriaxone Sodium 2 gm in 100 mls @ 200 mls/hr 08/02/20 10:00 08/03/20 10:03 Rocephin/Ns 2 Gm/100 Ml IV 200 mls/hr Q24HR ROMMEL Administration Protocol Vancomycin HCl 1,500 mg/ 530 mls @ 333.333 mls/hr 08/02/20 10:00 08/03/20 10:10 Sodium Chloride IV 333.333 mls/hr Q12HR ROMMEL Administration Insulin Glargine 12 units 08/02/20 18:00 08/02/20 17:06 Lantus SUB-Q 12 units Q24H ROMMEL Administration Insulin Human Regular 0 unit 08/01/20 00:00 08/03/20 12:14 Humulin R SUB-Q 4 unit Q6HR ROMMEL Administration Protocol Lansoprazole 30 mg 07/10/20 10:00 08/03/20 10:04 Prevacid Solutab FEEDTUBE 30 mg QDAY ROMMEL Administration Methylprednisolone Sodium Succinate 40 mg 07/22/20 14:00 08/03/20 14:23 Solu-Medrol IV 40 mg Q8H ROMMEL Administration Multi-Ingred Cream/Lotion/Oil/Oint 1 applic 07/08/20 13:16 Artificial Tears Ophth Oint OU Q4HR PRN Dry Eye(s) Ondansetron HCl 4 mg 07/06/20 13:39 07/08/20 10:44 Zofran IV 4 mg Q8H PRN Administration Nausea And Vomiting Polyethylene Glycol 17 gm 07/29/20 12:00 08/03/20 10:03 Miralax 3350 PO 17 gm DAILY ROMMEL Administration Pseudoephedrine/Acetam/Chlorphenir 10 ml 07/07/20 01:17 07/08/20 08:30 Robitussin Ac PO 10 ml Q4H PRN Administration Cough Quetiapine Fumarate 200 mg 07/25/20 22:00 08/03/20 10:03 Seroquel PO 200 mg BID ROMMEL Administration Quetiapine Fumarate 100 mg 07/25/20 22:00 08/03/20 10:10 Seroquel PO 100 mg BID ROMMEL Administration Simple Syrup 15 ml 07/08/20 14:50 Simple Syrup FEEDTUBE PRN PRN Hypoglycemia Simple Syrup 30 ml 07/08/20 14:50 Simple Syrup FEEDTUBE PRN PRN Hypoglycemia Sodium Bicarbonate 325 mg 07/08/20 14:50 Sodium Bicarbonate FEEDTUBE PRN PRN For Clogged Feeding Tube Sodium Chloride 10 ml 07/06/20 14:00 08/03/20 10:06 Sodium Chloride Flush Syringe 10 Ml IV 10 ml BID ROMMEL Administration Sodium Chloride 10 ml 07/06/20 13:39 07/26/20 06:31 Sodium Chloride Flush Syringe 10 Ml IV 10 ml PRN PRN Administration LINE FLUSH Venlafaxine HCl 37.5 mg 07/07/20 10:00 08/03/20 10:10 Effexor PO 37.5 mg DAILY ROMMEL Administration Zinc Sulfate 220 mg 07/08/20 22:00 08/03/20 10:04 Zinc Sulfate PO 220 mg BID ROMMEL Administration Nutrition/Malnutrition Assess - Dietary Evaluation Nutrition/Malnutrition Findings: Nutrition Notes Start: 07/08/20 14:02 Freq: Status: Active Protocol: Document 08/01/20 11:00 EN (Rec: 08/01/20 12:16 EN [id number]) Co-Sign 08/01/20 11:00 NHALL Nutrition Notes Initial or Follow up Reassessment Current Diagnosis Acute Kidney Injury, Hypertension,Heart Failure Other Pertinent Diagnosis Acute respiratory failure, COVID(+), GERD, Lupus, Anemia Current Diet Vital AF 1.2 at 55 mL/hr (goal rate) Labs/Tests Na 132 K+ 2.8 BUN 47 POC Glu 246 Pertinent Medications Diprivan Fentanyl Solu-medrol Humulin KCl Vitamin C Zinc Sulfate Height 5 ft 5 in Weight 98.1 kg [place] Body Weight (kg) 56.81 BMI 35.9 Weight change and time frame Wt change noted Weight Status Obese Subjective/Other Information F/u for TF tolerance. Pt remains on vent and is no longer proned. TF infusing at 20 ml/hr and pt tolerating well. RN reports pt had 4 BM last night and 1 BM this morning. Percent of energy/protein needs met: 36%/36% Burn Absent Trauma Absent GI Symptoms None Current % PO Negligible Minimum of two criteria No physical signs of malnutrition #1 Nutrition Diagnosis Inadequate oral intake Diagnosis Progress(for reassessment Continues documentation) Is patient on ventilator? Yes Is Patient Ambulatory and/or Out of Bed No REE-([facility]-confined to bed) 1937.676 Kcal/Kg value to use for calculation 17 Approximate Energy Requirements Using 1668 kcal/Kg Calculation Used for Recommendations Kcal/kg Additional Notes Pro: greater than 114 g (>2 g/ kg IBW) Fluid: 1ml/kcal or per MD Nutrition Intervention Change Diet Order: Continue TF Nutrition Support: Vital AF at 55 ml/hr Flush 75 ml q4h 16 hr prone: Vital AF 1.2 at 10 ml for 16hr . Flush 50 ml q4h. For remaining 8 hours, Vital AF 1.2 at 135 ml/hr. Flush 125 ml q4h. Kcal 1,584 Protein (gm) 99 Fluid (mL) 1,070 Goal #1 Meet at least 80% of protein and energy needs via TF Anticipated Discharge Needs: Cannot determine at this time Follow-Up By: 08/05/20 Additional Comments Follow for TF rate/tolerance and BM pattern
[2020-08-03] MEDS ORDERED: LIDOCAINE (1%) 10 MG/1 ML VIAL 20 ML MDV INFILTRATI NR (16:30)
--- NOTE | 2020-08-03 16:51 | Consultation ---
History of Present Illness Consult date: 08/03/20 Reason for consult: other (pneumothorax) Chief complaint: pneumothorax - History of present illness History of present illness: 50-year-old female with past medical history of asthma, CHF, hypertension, ob esity who presented to the emergency room on 07/06/2020 with generalized body aches, fever, shortness of breath. Patient had multiple previous hospitalizations for asthma exacerbations. Patient was admitted for further work-up and treatment. She was found to have Covid pneumonia. Unfortunately her respiratory status decompensated and the patient required intubation and transfer to the ICU. She has been requiring full ventilatory support and has not been able to be weaned. She has remained on high PEEP and FiO2 of 100%. On 07/29/2020 the patient was found to have a right-sided pneumothorax and a chest tube was placed by the critical care attending. At that time the pneumothorax had resolved. On chest x-ray on 07/31/2020 a right-sided pneumothorax was once again seen and the development of subcutaneous emphysema. The right chest tube had a continuous air leak. Subsequent chest x-rays showed worsening of the subcutaneous emphysema and pneumomediastinum along with a tiny pneumothorax on the left. Surgery is consulted for further evaluation. Past History Past Medical History: hypertension, other (lupus, hypertention, asthma) Past Surgical History: No surgical history Social history: denies: smoking, alcohol abuse, prescription drug abuse, IV drug use Family history: no significant family history Medications and Allergies Allergies Allergy/AdvReac Type Severity Reaction Status Date / Time bee venom protein (honey bee) Allergy Shortness Verified 07/10/18 16:39 of Breath iv contrast Allergy Hives Uncoded 07/10/18 16:36 Home Medications Medication Instructions Recorded Confirmed Last Taken Type ALBUTEROL Inhaler(NF) [VENTOLIN 1 puff IH Q4HR PRN #1 inha 07/10/18 07/06/20 06/27/20 Rx Inhaler(NF)] atenoloL [Tenormin] 50 mg PO DAILY 12/28/18 07/06/20 06/27/20 History Aspirin [Aspirin BABY CHEW TAB] 81 mg PO QDAY #30 tab.chew 12/30/18 07/06/20 06/27/20 Rx Hydroxychloroquine [Plaquenil] 200 mg PO QDAY 30 Days tablet 12/30/18 07/06/20 06/27/20 Rx Pantoprazole [Protonix TAB] 40 mg PO DAILY #30 tablet 05/04/19 07/06/20 10/06/19 Rx Gabapentin [Gralise] 600 mg PO QDAY 10/09/19 07/06/20 06/27/20 History Venlafaxine [Effexor 25mg tab] 37.5 mg PO QDAY 10/09/19 07/06/20 06/27/20 History ALPRAZolam [Xanax TAB] 2 mg PO Q12HR 06/28/20 07/06/20 06/27/20 History Budesonide/Formoterol Fumarate 10.2 gm IH BID 30 Days hfa.aer.ad 07/01/20 07/06/20 Unknown Rx [Symbicort 160-4.5 Mcg Inhaler] Montelukast [Singulair] 10 mg PO QHS 30 Days tablet 07/01/20 07/06/20 Unknown Rx Prednisone [predniSONE 5 mg (6-Day 5 mg PO .TAPER #1 tab.ds.pk 07/01/20 07/06/20 Unknown Rx Pack, 21 Tabs)] levoFLOXacin [Levaquin] 750 mg PO QDAY #3 tablet 07/01/20 07/06/20 Unknown Rx Active Meds: Active Medications Acetaminophen (Tylenol) 650 mg PO Q4H PRN PRN Reason: Pain MILD(1-3)/Fever >100.5/WILLETT Last Admin: 07/27/20 18:34 Dose: 650 mg Documented by: Albuterol/Ipratropium (Duoneb *Not For Prn Use*) 1 ampul IH TIDRT [facility] Last Admin: 08/03/20 14:11 Dose: 1 ampul Documented by: Alprazolam (Xanax) 0.5 mg PO Q8H PRN PRN Reason: Anxiety Last Admin: 07/27/20 03:15 Dose: 0.5 mg Documented by: Lipase/Protease/Amylase (Cayla Price 10,500 Unit) 1 each FEEDTUBE PRN PRN PRN Reason: For Clogged Feeding Tube Arformoterol Tartrate (Brovana Nebu) 15 mcg IH Q12HRT [facility] Last Admin: 08/03/20 08:45 Dose: 15 mcg Documented by: Ascorbic Acid (Vitamin C) 500 mg PO BID [facility] Last Admin: 08/03/20 10:04 Dose: 500 mg Documented by: Aspirin (Baby Aspirin) 81 mg PO QDAY [facility] Last Admin: 08/03/20 10:04 Dose: 81 mg Documented by: Budesonide (Pulmicort) 0.5 mg IH Q12HRT [facility] Last Admin: 08/03/20 08:45 Dose: 0.5 mg Documented by: Chlordiazepoxide HCl (Librium) 75 mg PO Q8H [facility] Last Admin: 08/03/20 12:14 Dose: 75 mg Documented by: Dextrose (D50w (25gm) Syringe) 50 ml IV Q30MIN PRN; Protocol PRN Reason: Hypoglycemia Docusate Sodium (Colace) 100 mg PO BID [facility] Last Admin: 08/03/20 10:04 Dose: 100 mg Documented by: Enoxaparin Sodium (Enoxaparin) 30 mg SUB-Q BID [facility]; Protocol Last Admin: 08/03/20 10:03 Dose: 30 mg Documented by: Fentanyl (Sublimaze) 50 mcg IV Q10MIN PRN PRN Reason: ANALGESIA Last Admin: 07/29/20 15:45 Dose: 50 mcg Documented by: Gabapentin (Gabapentin) 600 mg PO Q8HR [facility] Last Admin: 08/03/20 14:23 Dose: 600 mg Documented by: Hydrophilic Ointment (Vaseline Lip Therapy) 1 applic TP Q2HR PRN PRN Reason: Dry Lips Last Admin: 07/22/20 23:01 Dose: 1 applic Documented by: Hydroxychloroquine Sulfate (Plaquenil) 200 mg PO QDAY [facility] Last Admin: 08/03/20 10:04 Dose: 200 mg Documented by: Fentanyl Citrate (Fentanyl Drip Premix) 2,000 mcg in 100 mls @ 4.825 mls/hr IV TITR [facility]; Protocol Last Admin: 08/03/20 14:23 Dose: 4 mcg/kg/hr, 19.3 mls/hr Documented by: Midazolam HCl 100 mg/ Sodium (Chloride) 100 mls @ 2 mls/hr IV TITR ROMMEL; Protocol Last Admin: 08/03/20 16:41 Dose: 8 mg/hr, 8 mls/hr Documented by: Sodium Chloride (Nacl 0.9% 500 Ml) 500 mls @ 10 mls/hr IV DIRECT ROMMEL Norepinephrine (Levophed Drip 4 Mg/Ns 250 Ml) 4 mg in 250 mls @ 7.5 mls/hr IV TITR ROMMEL; Protocol Vasopressin 20 unit/ Sodium (Chloride) 101 mls @ 9.09 mls/hr IV TITR ROMMEL; Protocol Last Admin: 08/03/20 16:40 Dose: 0.03 units/min, 9.09 mls/hr Documented by: Phenylephrine HCl 100 mg/ (Sodium Chloride) 100 mls @ 3 mls/hr IV TITR ROMMEL; Protocol Last Admin: 08/03/20 09:51 Dose: 60 mcg/min, 3.6 mls/hr Documented by: Sodium Chloride (Nacl 0.9% 1000 Ml) 1,000 mls @ 75 mls/hr IV DIRECT ROMMEL Last Admin: 08/03/20 04:18 Dose: 75 mls/hr Documented by: Propofol (Diprivan 10 Mg/Ml) 1,000 mg in 100 mls @ 2.946 mls/hr IV DIRECT ROMMEL; Protocol Last Admin: 08/03/20 12:34 Dose: 50 mcg/kg/min, 29.46 mls/hr Documented by: Dopamine HCl/Dextrose (Intropin Drip 800 Mg/D5w 250 Ml) 800 mg in 250 mls @ 3.679 mls/hr IV TITR ROMMEL; Protocol Ceftriaxone Sodium (Rocephin/Ns 2 Gm/100 Ml) 2 gm in 100 mls @ 200 mls/hr IV Q24HR ROMMEL; Protocol Last Admin: 08/03/20 10:03 Dose: 200 mls/hr Documented by: Vancomycin HCl 1,500 mg/ (Sodium Chloride) 530 mls @ 333.333 mls/hr IV Q12HR ROMMEL Last Admin: 08/03/20 10:10 Dose: 333.333 mls/hr Documented by: Insulin Glargine (Lantus) 12 units SUB-Q Q24H ROMMEL Last Admin: 08/02/20 17:06 Dose: 12 units Documented by: Insulin Human Regular (Humulin R) 0 unit SUB-Q Q6HR ROMMEL; Protocol Last Admin: 08/03/20 12:14 Dose: 4 unit Documented by: Lansoprazole (Prevacid Solutab) 30 mg FEEDTUBE QDAY ROMMEL Last Admin: 08/03/20 10:04 Dose: 30 mg Documented by: Lidocaine (Xylocaine 1% 20 Ml) 10 ml INFILTRATI PREOP NR Stop: 08/04/20 16:29 Last Admin: 08/03/20 15:45 Dose: 10 ml Documented by: Methylprednisolone Sodium Succinate (Solu-Medrol) 40 mg IV Q8H [facility] Last Admin: 08/03/20 14:23 Dose: 40 mg Documented by: Multi-Ingred Cream/Lotion/Oil/Oint (Artificial Tears Ophth Oint) 1 applic OU Q4HR PRN PRN Reason: Dry Eye(s) Ondansetron HCl (Zofran) 4 mg IV Q8H PRN PRN Reason: Nausea And Vomiting Last Admin: 07/08/20 10:44 Dose: 4 mg Documented by: Polyethylene Glycol (Miralax 3350) 17 gm PO DAILY [facility] Last Admin: 08/03/20 10:03 Dose: 17 gm Documented by: Pseudoephedrine/Acetam/Chlorphenir (Robitussin Ac) 10 ml PO Q4H PRN PRN Reason: Cough Last Admin: 07/08/20 08:30 Dose: 10 ml Documented by: Quetiapine Fumarate (Seroquel) 200 mg PO BID [facility] Last Admin: 08/03/20 10:03 Dose: 200 mg Documented by: Quetiapine Fumarate (Seroquel) 100 mg PO BID [facility] Last Admin: 08/03/20 10:10 Dose: 100 mg Documented by: Simple Syrup (Simple Syrup) 15 ml FEEDTUBE PRN PRN PRN Reason: Hypoglycemia Simple Syrup (Simple Syrup) 30 ml FEEDTUBE PRN PRN PRN Reason: Hypoglycemia Sodium Bicarbonate (Sodium Bicarbonate) 325 mg FEEDTUBE PRN PRN PRN Reason: For Clogged Feeding Tube Sodium Chloride (Sodium Chloride Flush Syringe 10 Ml) 10 ml IV BID [facility] Last Admin: 08/03/20 10:06 Dose: 10 ml Documented by: Sodium Chloride (Sodium Chloride Flush Syringe 10 Ml) 10 ml IV PRN PRN PRN Reason: LINE FLUSH Last Admin: 07/26/20 06:31 Dose: 10 ml Documented by: Venlafaxine HCl (Effexor) 37.5 mg PO DAILY [facility] Last Admin: 08/03/20 10:10 Dose: 37.5 mg Documented by: Zinc Sulfate (Zinc Sulfate) 220 mg PO BID [facility] Last Admin: 08/03/20 10:04 Dose: 220 mg Documented by: Review of Systems ROS unobtainable: due to endotracheal tube, due to mental status Exam Vital Signs Temp 101.7 F H 07/06/20 04:27 Narrative exam: Gen.: Intubated and sedated.. No apparent distress ENT: Trachea midline. Subcutaneous emphysema involving the neck and lower face bilaterally. No lymphadenopathy. No scleral icterus or conjunctival pallor. ET tube present. CV: S1, S2 present Respiratory: No audible wheezes. Right chest tube in place with dressing clean, dry, intact. There is a continuous air leak seen. The chest tube is set to - 20 cm H2O suction. Serous drainage in tubing. There is bilateral chest wall subcutaneous emphysema. Abdomen: Soft, nondistended, nontender. No rebound, rigidity, guarding Extremities: Positive generalized edema : Tejada catheter with clear yellow urine Results - Labs 08/03/20 04:49 08/03/20 04:49 Abnormal lab results 08/02/20 08/02/20 08/03/20 Range/Units 17:04 23:23 01:25 WBC (4.5-11.0) K/mm3 RBC (3.65-5.03) M/mm3 Hgb (10.1-14.3) gm/dl Hct (30.3-42.9) % RDW (13.2-15.2) % Lymphocytes % (Manual) (13.4-35.0) % Nucleated RBC % (0.0-0.9) % Seg Neutrophils # Man (1.8-7.7) K/mm3 Lymphocytes # (Manual) (1.2-5.4) K/mm3 ABG pH 7.302 L (7.320-7.450) POC ABG pCO2 56.0 H (32.0-48.0) mmHg POC ABG pO2 39.6 L (83-108) mmHg ABG Hemoglobin 9.1 L (12.0-17.5) ABG Potassium 4.8 H (3.40-4.50) mmol/L ABG Chloride 108.0 H (98-107) mmol/L ABG Glucose 275 H (65-95) mg/dL BUN (7-17) mg/dL Glucose (65-100) mg/dL POC Glucose 256 H 214 H (70-105) mg/dL Calcium (8.4-10.2) mg/dL ALT (7-56) units/L Total Protein (6.3-8.2) g/dL Albumin (3.9-5) g/dL Triglycerides (2-149) mg/dL Arterial Blood Glucose 275 H (65-95) mg/dL 08/03/20 08/03/20 08/03/20 Range/Units 04:49 04:49 04:49 WBC 13.2 H (4.5-11.0) K/mm3 RBC 2.83 L (3.65-5.03) M/mm3 Hgb 8.4 L (10.1-14.3) gm/dl Hct 26.3 L (30.3-42.9) % RDW 16.4 H (13.2-15.2) % Lymphocytes % (Manual) 2.0 L (13.4-35.0) % Nucleated RBC % 1.0 H (0.0-0.9) % Seg Neutrophils # Man 7.8 H (1.8-7.7) K/mm3 Lymphocytes # (Manual) 0.3 L (1.2-5.4) K/mm3 ABG pH (7.320-7.450) POC ABG pCO2 (32.0-48.0) mmHg POC ABG pO2 (83-108) mmHg ABG Hemoglobin (12.0-17.5) ABG Potassium (3.40-4.50) mmol/L ABG Chloride (98-107) mmol/L ABG Glucose (65-95) mg/dL BUN 39 H (7-17) mg/dL Glucose 263 H (65-100) mg/dL POC Glucose (70-105) mg/dL Calcium 8.1 L (8.4-10.2) mg/dL ALT 242 H (7-56) units/L Total Protein 5.4 L (6.3-8.2) g/dL Albumin 2.2 L (3.9-5) g/dL Triglycerides 500 H (2-149) mg/dL Arterial Blood Glucose (65-95) mg/dL 08/03/20 08/03/20 Range/Units 05:11 11:55 WBC (4.5-11.0) K/mm3 RBC (3.65-5.03) M/mm3 Hgb (10.1-14.3) gm/dl Hct (30.3-42.9) % RDW (13.2-15.2) % Lymphocytes % (Manual) (13.4-35.0) % Nucleated RBC % (0.0-0.9) % Seg Neutrophils # Man (1.8-7.7) K/mm3 Lymphocytes # (Manual) (1.2-5.4) K/mm3 ABG pH (7.320-7.450) POC ABG pCO2 (32.0-48.0) mmHg POC ABG pO2 (83-108) mmHg ABG Hemoglobin (12.0-17.5) ABG Potassium (3.40-4.50) mmol/L ABG Chloride (98-107) mmol/L ABG Glucose (65-95) mg/dL BUN (7-17) mg/dL Glucose (65-100) mg/dL POC Glucose 230 H 238 H (70-105) mg/dL Calcium (8.4-10.2) mg/dL ALT (7-56) units/L Total Protein (6.3-8.2) g/dL Albumin (3.9-5) g/dL Triglycerides (2-149) mg/dL Arterial Blood Glucose (65-95) mg/dL Diabetes panel 08/03/20 08/03/20 Range/Units 04:49 04:49 Sodium 139 (137-145) mmol/L Potassium 4.8 (3.6-5.0) mmol/L Chloride 106.1 (98-107) mmol/L Carbon Dioxide 29 (22-30) mmol/L BUN 39 H (7-17) mg/dL Creatinine 0.7 (0.6-1.2) mg/dL Glucose 263 H (65-100) mg/dL Calcium 8.1 L (8.4-10.2) mg/dL AST 33 (5-40) units/L ALT 242 H (7-56) units/L Alkaline Phosphatase 97 (35-129) units/L Total Protein 5.4 L (6.3-8.2) g/dL Albumin 2.2 L (3.9-5) g/dL Triglycerides 500 H (2-149) mg/dL Calcium panel 08/03/20 Range/Units 04:49 Calcium 8.1 L (8.4-10.2) mg/dL Albumin 2.2 L (3.9-5) g/dL Pituitary panel 08/03/20 Range/Units 04:49 Sodium 139 (137-145) mmol/L Potassium 4.8 (3.6-5.0) mmol/L Chloride 106.1 (98-107) mmol/L Carbon Dioxide 29 (22-30) mmol/L BUN 39 H (7-17) mg/dL Creatinine 0.7 (0.6-1.2) mg/dL Glucose 263 H (65-100) mg/dL Calcium 8.1 L (8.4-10.2) mg/dL Adrenal panel 08/03/20 Range/Units 04:49 Sodium 139 (137-145) mmol/L Potassium 4.8 (3.6-5.0) mmol/L Chloride 106.1 (98-107) mmol/L Carbon Dioxide 29 (22-30) mmol/L BUN 39 H (7-17) mg/dL Creatinine 0.7 (0.6-1.2) mg/dL Glucose 263 H (65-100) mg/dL Calcium 8.1 L (8.4-10.2) mg/dL Total Bilirubin 0.30 (0.1-1.2) mg/dL AST 33 (5-40) units/L ALT 242 H (7-56) units/L Alkaline Phosphatase 97 (35-129) units/L Total Protein 5.4 L (6.3-8.2) g/dL Albumin 2.2 L (3.9-5) g/dL - Imaging Chest x-ray: report reviewed, image reviewed (Multiple chest x-rays images reviewed along with reports) Assessment and Plan 50 yo F with 1. b/l PTX with subcutaneous emphysema 2. COVID PNA 3. VDRF 4. Septic shock, on pressors Plan: Patient with a right sided chest tube, continuous leak with worsening subcutaneous emphysema and persistent apical PTX. Also tiny left apical PTX with associated subcutaneous emphysema. PEEP requirement has remained high and currently patient at PEEP 18, FIO2 100%, O2Sat 95-98% Recommend placement of bilateral chest tubes. With PEEP requirements remaining high, patient is at high risk for worsening of the existing pneumothoraces and acute respiratory decompensation. I discussed the indication for procedure with patient's sister/POA on file. All risk benefits alternatives discussed and questions answered. Consent obtained and witnessed. Post procedure chest x-ray will be obtained. Will keep chest tube"RIGHT #2" at -[id number] suction overnight. Will keep chest tube "RIGHT #1" at -[id number] suction Will keep chest tube "LEFT" at -[id number] suction All ordered placed. Thank you for this consultation. Please call with any questions or concerns. Evaluation and treatment of this patient was during the time of the national and state emergency arising from COVID19 coronavirus pandemic. Treatment and procedures performed meet the current and available best practice and guidelines for patient during the COVID pandemic.
--- NOTE | 2020-08-03 16:54 | XRay Report ---
CHEST 1 VIEW 4:36 PM INDICATION / CLINICAL INFORMATION: Chest tube placement. COMPARISON: Earlier today at 12:46 PM. FINDINGS: SUPPORT DEVICES: There are new bilateral chest tubes with the tips overlying the upper hemithoraces. A more inferiorly positioned right chest tube is again noted. The positions of the endotracheal tube, nasogastric tube and left PICC have not changed. HEART / MEDIASTINUM: Pneumomediastinum appears less prominent. LUNGS / PLEURA: Diffuse bilateral parenchymal disease, right greater than left, has not changed signi ficantly. There are tiny bilateral residual pneumothoraces, larger on the right. The right pneumothor ax is smaller. ADDITIONAL FINDINGS: Bilateral subcutaneous emphysema has improved. IMPRESSION:New bilateral chest tubes with significant improvement in the right pneumothorax. Pneumome diastinum and subcutaneous emphysema have also improved. Signer Name: Manpreet Batres MD Signed: 08/03/2020 4:50 PM Workstation Name: [id number]
--- NOTE | 2020-08-03 16:57 | Procedure Note ---
Date of procedure: 08/03/20 Pre-op diagnosis: bilateral pneumothorax Post-op diagnosis: same Procedure: Placement of bilateral chest tube placement Findings: The patient was identified in the hospital bed and consent verified on the chart. Noted was an existing right sided chest tube with a continuous air leak. Time out performed. R arm abducted. R lateral chest prepped with betadine and draped in sterile fashion. Local anesthetic infiltrated into the skin at the intended incision site. A transverse incision was made using a 15 blade at the fourth intercostal space in the midaxillary line. Dissection was carried down through skin and subcutaneous tissue using a Herminia. Once the rib was encountered dissection was carried out superior to the rib using the Herminia clamp. A pop was felt when the Herminia clamp was advanced through the pleura into the pleural space and a renteria of air appreciated. A 24 Sudanese chest tube was then inserted through this opening and guided superiorly. Chest tube was advanced to approximately 16 cm and attached to Pleur-evac suction. There is a continuous air leak seen. There is serosanguineous fluid in the tubing with titling and respiratory variation. The chest tube was sutured into place using an 0 silk drain stitch x2. An occlusive dressing was applied and secured with silk tape. The tubing was secured using silk tape and the chest tube secured to the patient's chest. The Pleur-evac was labeled "RIGHT #2". The air leak which was present in the existing chest tube labeled "RIGHT #1" was noted to be resolved. The left lateral chest was then prepped with Betadine and draped in sterile fashion. Local anesthetic was infiltrated into the skin at the intended incision site. A transverse incision was made using a 15 blade at the fourth intercostal space in the midaxillary line. Dissection was carried down through skin and subcutaneous tissue using a Herminia. Once the rib was encountered dissection was carried out superior to the rib using the Herminia clamp. A pop was felt when the Herminia clamp was advanced through the pleura into the pleural space. There was a renteria of air. A 24 Sudanese chest tube was then inserted through this opening and guided superiorly. Chest tube was advanced to approxim ately 14 cm and attached to Pleur-evac suction. There was no air leak seen. There is scant serosanguineous fluid in the tubing. The chest tube was sutured into place using an 0 silk drain stitch. An occlusive dressing was applied and secured with silk tape. The tubing was secured using silk tape and the chest tube secured to the patient's chest. Pleur-evac was labeled "LEFT" The patient remained stable throughout both procedures. Post procedure chest x- ray showed both newly placed chest tubes to be in good position with resolution of bilateral pneumothoraces. All sharps were disposed of appropriately. Implants: 24 Sudanese Right sided chest tube 24 Sudanese Left sided chest tube Anesthesia: local, other (pt already on propofol) Surgeon: JACOBO COOPER Estimated blood loss: minimal Pathology: none Condition: stable Disposition: no change
[2020-08-03] MEDS: INSULIN GLARGINE 100 UNITS/ML SUB-Q SCH (17:51)
[2020-08-04] MEDS: VASOPRESSIN 20 UNIT in SODIUM CHLORIDE 0.9% 100 ML IV SCH ×2 (02:48→14:00)
[2020-08-04] MEDS: fentaNYL DRIP Premix 2,000 MCG/100 ML BAG IV SCH ×4 (02:49→20:06)
--- NOTE | 2020-08-04 03:03 | XRay Report ---
ABDOMEN 1 VIEW(S) INDICATION / CLINICAL INFORMATION: residuals and air in stomach. COMPARISON: Abdominal radiograph 07/30/2020 FINDINGS: Statements: The lower abdomen and pelvis are excluded from [id number]. TUBES / LINES: Stable position of enteric tube with tip terminating in the gastric body and side hole distal to the gastroesophageal junction. BOWEL GAS PATTERN: Persistent moderate gaseous distention of the stomach. FREE AIR / EXTRALUMINAL GAS: None seen. ADDITIONAL FINDINGS: Refer to separately dictated chest radiograph for respective findings. IMPRESSION: 1. Stable appropriately positioned enteric tube. Persistent moderate gaseous distention of the stomac h. Signer Name: Christina Ramos MD Signed: 08/04/2020 2:59 AM Workstation Name: [id number]
--- NOTE | 2020-08-04 03:07 | XRay Report ---
CHEST 1 VIEW INDICATION / CLINICAL INFORMATION: 3 chest tubes and crepitus. COMPARISON: Chest radiograph one day prior FINDINGS: SUPPORT DEVICES: Stable position of endotracheal tube, enteric tube, bilateral chest tubes, and left- sided PICC. HEART / MEDIASTINUM: Stable. LUNGS / PLEURA: Extensive bilateral pulmonary opacities appear slightly improved from prior examinati on, particularly in the upper lobes. A small right pneumothorax is not significantly changed from [place] or examination. Previously seen tiny left apical pneumothorax is not definitively visualized. ADDITIONAL FINDINGS: Subcutaneous emphysema throughout the chest, slightly improved. IMPRESSION: 1. Extensive bilateral airspace opacities are slightly improved from prior examination. 2. A small right pneumothorax is not significantly changed. Previously seen tiny left apical pneumoth orax is not definitively visualized. Signer Name: Christina Ramos MD Signed: 08/04/2020 3:02 AM Workstation Name: [id number]
[2020-08-04] MEDS: QUEtiapine 200 MG TAB PO SCH ×3 (03:28→22:33)
[2020-08-04] MEDS: INSULIN REGULAR, HUMAN 100 UNIT/ML 3ML VIAL SUB-Q SCH ×4 (03:29→17:51)
[2020-08-04] MEDS: MIDAZOLAM 100 MG in SODIUM CHLORIDE 0.9% 80 ML IV SCH (05:15)
[2020-08-04] MEDS: chlordiazePOXIDE 25 MG CAP PO SCH ×3 (06:30→21:34)
[2020-08-04] MEDS: GABAPENTIN 300 MG CAP PO SCH ×3 (07:48→22:34)
[2020-08-04] MEDS: IPRATROPIUM/ALBUTEROL SULFATE 3 ML AMPUL.NEB IH SCH ×3 (08:23→20:00)
[2020-08-04] MEDS: ARFORMOTEROL 15 MCG/2 ML NEBU IH SCH ×2 (08:23→20:00)
[2020-08-04] MEDS: BUDESONIDE 0.5 MG/2 ML NEBU IH SCH ×2 (08:24→20:00)
[2020-08-04] MEDS: methylPREDNISolone Sod Succinate 40 MG/1 ML INJ IV SCH ×3 (08:32→23:15)
[2020-08-04] MEDS: INSULIN GLARGINE 100 UNITS/ML SUB-Q SCH (09:38)
[2020-08-04] MEDS: POLYETHYLENE GLYCOL 3350 17 GM POWDER PO SCH (09:39)
[2020-08-04] MEDS: cefTRIAXone/NS 2 GM/100 ML 2 GM/100 ML BAG IV SCH (09:42)
[2020-08-04] MEDS: ENOXAPARIN 30 MG/0.3 ML INJ SUB-Q SCH ×2 (09:42→22:34)
[2020-08-04] MEDS: ZINC SULFATE 220 MG CAP PO SCH ×2 (09:43→22:33)
[2020-08-04] MEDS: ASPIRIN 81 MG TAB CHEW PO SCH (09:43)
[2020-08-04] MEDS: LANSOPRAZOLE 30 MG SOLUTAB FEEDTUBE SCH (09:43)
[2020-08-04] MEDS: DOCUSATE SODIUM 100 MG/10 ML ORAL LIQD PO SCH ×2 (09:43→22:33)
[2020-08-04] MEDS: ASCORBIC ACID 500 MG TAB PO SCH ×2 (09:43→22:33)
[2020-08-04] MEDS: VENLAFAXINE 37.5 MG TAB PO SCH (09:43)
[2020-08-04] MEDS: HYDROXYCHLOROQUINE 200 MG TAB PO SCH (09:43)
[2020-08-04] MEDS: QUEtiapine 100 MG TAB PO SCH ×2 (09:43→22:33)
[2020-08-04] MEDS: VANCOMYCIN 1,500 MG in SODIUM CHLORIDE 0.9% 500 ML 500 ML IV SCH ×2 (10:34→22:34)
--- NOTE | 2020-08-04 12:34 | Progress Note ---
Assessment and Plan Acute hypoxemic respiratory failure, now on MVS Bilateral pneumonia, left greater than right lungs. COVID-19 infection. History of congestive heart failure. History of lupus erythematosus. Leukocytosis. Tobacco use disorder. Acute asthma exacerbation. History of hypertension. Obesity - continue chest tubes to continuous suction (surgery assistance appreciated) - FiO2 reduced to 90% - reduced peep to 16 (O2 sats 97%) - continue sedation and target RASS -2 to -3 acutely - repeat ABG in am - growing E. Coli & MRSA from tracheal aspirate; continue and de-escalate AB's per ID recommendations - prognosis grave to guarded especially neurologic-rai - continue care as below otherwise; - wean Vasopressors for target MAP > 65 mmHg - continue Librium - repeat COVID-19 test is positive - continue systemic steroids - continue to wean supplemental oxygen for target O2 sat's > 92% - continue low dose SSI - continue Seroquel 300 mg p.o. bid - continue airborne and contact isolation - continue Zinc & Vit C supplementaion - complete Remdesivir - de-escalate AB's per ID rec's - continue systemic steroids for Asthma / severe COVID infection - continue Daily SAT and SBT assessment as tolerated - VAP bundle addressed - continue lung protective strategies - continue bronchodilators with pulmonary hygiene per RT - wean per pulmonary driven protocols otherwise - accuchecks with glycemic control per SSI (While critically ill target blood glucose of 140-180 mg/dL; avoid hypoglycemia) - sedation prn for target RASS -1 to -2 - avoid nephrotoxins, renally dose all medications - continue to avoid benzodiazepine's, reduce the possibility of delirium - prn analgesia per CPOT score - Maintenance of sleep-wake cycle, avoid delirium - continue enteral nutritional support at goal rate as tolerated - G.I. & VTE prophylaxis - PT/OT/ROM exercises - continue mobility protocols for pressure ulcer prophylaxis - Monitor hemodynamics closely - continue other care per attending / other consultants - discharge planning ongoing concurrently .... Re-evaluate in am & prn CONDITION: CRITICAL PROGNOSIS: GUARDED CODE STATUS: FULL CODE The high probability of a clinically significant, sudden or life-threatening deterioration of the [respiratory, cardiovascular & neurologic] system(s) required my full and direct attention, intervention and personal management. The aggregate critical care time was [32] minutes without overlap. Time includes spent on; [x] Data Review and interpretation [x] Patient assessment and monitoring of vital signs [x] Documentation [x] Medication orders and management Subjective Date of service: 08/04/20 Principal diagnosis: Ac hypoxemic resp failure; PNA; COVID-19 infxn; SLE; Asthma exacerbation Interval history: Patient is seen today for: Acute hypoxemic respiratory failure; Bilateral pneumonia; COVID-19 infection; H/O CHF; SLE; Acute asthma exacerbation. HTN; Obesity Seen and examined at bedside; 24hour events reviewed; nursing and respiratory care staff consulted; no adverse overnight events reported to me; resting peacefully in bed; remains on MVS; s/p 2 new chest tubes yesterday (1 on each side); oxygenation improving; no N/V/F/C Objective Vital Signs - 12hr 08/04/20 08/04/20 08/04/20 00:46 01:00 01:16 Temperature Pulse Rate 82 80 78 Pulse Rate [ Bilateral Throughout] Pulse Rate [ From Monitor] Respiratory 30 H 30 H 30 H Rate Respiratory Rate [Bilateral Throughout] Blood Pressure 111/59 115/59 111/61 O2 Sat by Pulse 99 99 99 Oximetry 08/04/20 08/04/20 08/04/20 01:30 01:46 02:00 Temperature Pulse Rate 78 78 78 Pulse Rate [ Bilateral Throughout] Pulse Rate [ From Monitor] Respiratory 30 H 30 H 30 H Rate Respiratory Rate [Bilateral Throughout] Blood Pressure 113/59 111/61 112/59 O2 Sat by Pulse 99 98 99 Oximetry 08/04/20 08/04/20 08/04/20 02:16 02:30 02:46 Temperature Pulse Rate 76 75 74 Pulse Rate [ Bilateral Throughout] Pulse Rate [ From Monitor] Respiratory 30 H 20 30 H Rate Respiratory Rate [Bilateral Throughout] Blood Pressure 120/60 132/72 116/61 O2 Sat by Pulse 99 98 99 Oximetry 08/04/20 08/04/20 08/04/20 03:00 03:16 03:22 Temperature 99.2 F Pulse Rate 74 71 Pulse Rate [ Bilateral Throughout] Pulse Rate [ From Monitor] Respiratory 30 H 30 H Rate Respiratory Rate [Bilateral Throughout] Blood Pressure 117/59 116/60 O2 Sat by Pulse 100 100 Oximetry 08/04/20 08/04/20 08/04/20 03:30 03:46 04:00 Temperature Pulse Rate 71 71 69 Pulse Rate [ Bilateral Throughout] Pulse Rate [ 76 From Monitor] Respiratory 30 H 30 H 30 H Rate Respiratory Rate [Bilateral Throughout] Blood Pressure 123/62 118/61 125/62 O2 Sat by Pulse 100 100 100 Oximetry 08/04/20 08/04/20 08/04/20 04:16 04:30 04:46 Temperature Pulse Rate 69 68 68 Pulse Rate [ Bilateral Throughout] Pulse Rate [ From Monitor] Respiratory 30 H 21 12 Rate Respiratory Rate [Bilateral Throughout] Blood Pressure 120/63 121/62 123/64 O2 Sat by Pulse 100 100 100 Oximetry 08/04/20 08/04/20 08/04/20 05:00 05:16 05:30 Temperature Pulse Rate 67 66 68 Pulse Rate [ Bilateral Throughout] Pulse Rate [ From Monitor] Respiratory 13 30 H 22 Rate Respiratory Rate [Bilateral Throughout] Blood Pressure 126/63 122/63 123/64 O2 Sat by Pulse 100 100 100 Oximetry 08/04/20 08/04/20 08/04/20 05:46 05:52 06:00 Temperature Pulse Rate 65 62 62 Pulse Rate [ Bilateral Throughout] Pulse Rate [ From Monitor] Respiratory 29 H 30 H Rate Respiratory Rate [Bilateral Throughout] Blood Pressure 135/72 135/75 146/79 O2 Sat by Pulse 100 100 100 Oximetry 08/04/20 08/04/20 08/04/20 06:15 06:30 06:46 Temperature Pulse Rate 60 58 L 58 L Pulse Rate [ Bilateral Throughout] Pulse Rate [ From Monitor] Respiratory 30 H 30 H 30 H Rate Respiratory Rate [Bilateral Throughout] Blood Pressure 151/86 170/90 179/92 O2 Sat by Pulse 100 100 100 Oximetry 08/04/20 08/04/20 08/04/20 07:00 07:16 07:30 Temperature Pulse Rate 58 L 58 L 59 L Pulse Rate [ Bilateral Throughout] Pulse Rate [ From Monitor] Respiratory 30 H 30 H 30 H Rate Respiratory Rate [Bilateral Throughout] Blood Pressure 175/96 167/94 182/96 O2 Sat by Pulse 100 100 100 Oximetry 08/04/20 08/04/20 08/04/20 07:46 08:00 08:15 Temperature 98 F Pulse Rate 59 L 57 L 60 Pulse Rate [ Bilateral Throughout] Pulse Rate [ 57 L From Monitor] Respiratory 30 H 30 H 30 H Rate Respiratory Rate [Bilateral Throughout] Blood Pressure 179/97 176/96 168/90 O2 Sat by Pulse 100 100 100 Oximetry 08/04/20 08/04/20 08/04/20 08:18 08:30 08:46 Temperature Pulse Rate 60 60 61 Pulse Rate [ Bilateral Throughout] Pulse Rate [ From Monitor] Respiratory 30 H 30 H Rate Respiratory Rate [Bilateral Throughout] Blood Pressure 168/90 159/84 151/84 O2 Sat by Pulse 100 100 100 Oximetry 08/04/20 08/04/20 08/04/20 09:00 09:16 09:30 Temperature Pulse Rate 61 61 61 Pulse Rate [ 62 Bilateral Throughout] Pulse Rate [ From Monitor] Respiratory 30 H 30 H 30 H Rate Respiratory 30 H Rate [Bilateral Throughout] Blood Pressure 153/83 158/86 152/89 O2 Sat by Pulse 100 100 100 Oximetry 08/04/20 08/04/20 08/04/20 09:46 10:00 10:16 Temperature Pulse Rate 62 61 63 Pulse Rate [ Bilateral Throughout] Pulse Rate [ From Monitor] Respiratory 30 H 30 H 30 H Rate Respiratory Rate [Bilateral Throughout] Blood Pressure 153/82 147/80 141/77 O2 Sat by Pulse 100 100 99 Oximetry 08/04/20 08/04/20 08/04/20 10:30 10:46 11:00 Temperature Pulse Rate 62 61 61 Pulse Rate [ Bilateral Throughout] Pulse Rate [ From Monitor] Respiratory 30 H 30 H 30 H Rate Respiratory Rate [Bilateral Throughout] Blood Pressure 142/75 141/80 144/80 O2 Sat by Pulse 100 99 100 Oximetry 08/04/20 08/04/20 08/04/20 11:16 11:49 11:50 Temperature Pulse Rate 60 60 Pulse Rate [ Bilateral Throughout] Pulse Rate [ 60 From Monitor] Respiratory 30 H 30 H Rate Respiratory Rate [Bilateral Throughout] Blood Pressure 148/79 O2 Sat by Pulse 100 100 Oximetry 08/04/20 12:05 Temperature Pulse Rate 57 L Pulse Rate [ Bilateral Throughout] Pulse Rate [ From Monitor] Respiratory Rate Respiratory Rate [Bilateral Throughout] Blood Pressure 153/82 O2 Sat by Pulse 100 Oximetry Constitutional: no acute distress, other (middle aged obese female with mildly increased respiratory effort at rest on MVS) Eyes: non-icteric ENT: oropharynx moist, other (ETT 23cm YANET) Neck: supple, no lymphadenopathy, no JVD Effort: mildly labored Ascultation: Bilateral: diminished breath sounds, rhonchi, other (two R. chest tubes and 1 on left (leaks on right side)) Percussion: Bilateral: not dull Cardiovascular: regular rate and rhythm, other (S1,S2) Gastrointestinal: normoactive bowel sounds, soft, non-tender, non-distended Integumentary: normal Extremities: no cyanosis, no edema, pulses normal, no ischemia or petechiae Neurologic: pupils equal and round, other (sedated) Psychiatric: other (unable to assess re: AMS / sedation) CBC and BMP: 08/04/20 Unknown 08/04/20 Unknown ABG, PT/INR, D-dimer: ABG ABG pH 7.154 (7.320-7.450) L 08/04/20 03:16 POC ABG pCO2 80.7 mmHg (32.0-48.0) H 08/04/20 03:16 ABG pCO2 81.7 mm Hg 07/28/20 04:15 POC ABG pO2 84.6 mmHg (83-108) 08/04/20 03:16 ABG pO2 130.3 mm Hg (80.0-90.0) H 07/28/20 04:15 POC ABG HCO3 27.7 08/04/20 03:16 ABG O2 Saturation 98.1 % (95.0-99.0) 07/28/20 04:15 PT/INR, D-dimer D-Dimer 2522.40 ng/mlDDU (0-234) H 07/31/20 14:14 Abnormal lab findings: Abnormal Labs 07/06/20 07/06/20 07/07/20 05:24 17:16 04:50 WBC 13.5 H 12.7 H RBC Hgb Hct MCH MCHC RDW Plt Count Lymph % (Auto) Lymph # (Auto) Seg Neutrophils % Seg Neuts % (Manual) 86.0 H 87.0 H Lymphocytes % (Manual) 6.0 L 9.0 L Eosinophils % (Manual) Nucleated RBC % Seg Neutrophils # Seg Neutrophils # Man 11.6 H 11.0 H Lymphocytes # (Manual) 0.8 L 1.1 L Eosinophils # (Manual) D-Dimer ABG pH POC ABG pCO2 POC ABG pO2 ABG pO2 ABG HCO3 ABG O2 Saturation ABG Base Excess ABG Hemoglobin ABG Oxyhemoglobin ABG Sodium ABG Potassium ABG Chloride ABG Glucose Oxyhemoglobin Carboxyhemoglobin Sodium Potassium Chloride Carbon Dioxide BUN Creatinine Glucose POC Glucose Lactic Acid Calcium Ferritin AST ALT Lactate Dehydrogenase 242 H C-Reactive Protein 7.30 H Total Protein Albumin Triglycerides Arterial Blood Glucose Arterial Blood Ionized Calcium Urine Creatinine Urine Total Protein Vancomycin Trough Coronavirus (PCR) SARS-CoV-2 IgG Ab 07/07/20 07/07/20 07/07/20 04:50 14:22 14:22 WBC RBC Hgb Hct MCH MCHC RDW Plt Count Lymph % (Auto) Lymph # (Auto) Seg Neutrophils % Seg Neuts % (Manual) Lymphocytes % (Manual) Eosinophils % (Manual) Nucleated RBC % Seg Neutrophils # Seg Neutrophils # Man Lymphocytes # (Manual) Eosinophils # (Manual) D-Dimer ABG pH POC ABG pCO2 POC ABG pO2 ABG pO2 ABG HCO3 ABG O2 Saturation ABG Base Excess ABG Hemoglobin ABG Oxyhemoglobin ABG Sodium ABG Potassium ABG Chloride ABG Glucose Oxyhemoglobin Carboxyhemoglobin Sodium Potassium Chloride Carbon Dioxide BUN 18 H Creatinine Glucose 138 H POC Glucose Lactic Acid Calcium Ferritin 228.2 H AST ALT Lactate Dehydrogenase 277 H C-Reactive Protein Total Protein 5.9 L Albumin 3.4 L Triglycerides Arterial Blood Glucose Arterial Blood Ionized Calcium Urine Creatinine Urine Total Protein Vancomycin Trough Coronavirus (PCR) SARS-CoV-2 IgG Ab 07/08/20 07/08/20 07/08/20 11:18 12:57 16:13 WBC RBC Hgb Hct MCH MCHC RDW Plt Count Lymph % (Auto) Lymph # (Auto) Seg Neutrophils % Seg Neuts % (Manual) Lymphocytes % (Manual) Eosinophils % (Manual) Nucleated RBC % Seg Neutrophils # Seg Neutrophils # Man Lymphocytes # (Manual) Eosinophils # (Manual) D-Dimer ABG pH POC ABG pCO2 POC ABG pO2 ABG pO2 39.3 L* ABG HCO3 ABG O2 Saturation 76.8 L ABG Base Excess ABG Hemoglobin ABG Oxyhemoglobin ABG Sodium ABG Potassium ABG Chloride ABG Glucose Oxyhemoglobin 75.3 L Carboxyhemoglobin Sodium Potassium Chloride Carbon Dioxide 20 L D BUN Creatinine Glucose 135 H POC Glucose 106 H Lactic Acid Calcium 8.0 L Ferritin AST ALT Lactate Dehydrogenase C-Reactive Protein Total Protein Albumin Triglycerides Arterial Blood Glucose Arterial Blood Ionized Calcium Urine Creatinine Urine Total Protein Vancomycin Trough Coronavirus (PCR) SARS-CoV-2 IgG Ab 07/08/20 07/08/20 07/09/20 17:04 18:45 04:00 WBC 15.6 H RBC Hgb Hct MCH MCHC RDW Plt Count Lymph % (Auto) 4.7 L Lymph # (Auto) 0.7 L Seg Neutrophils % Seg Neuts % (Manual) Lymphocytes % (Manual) Eosinophils % (Manual) Nucleated RBC % Seg Neutrophils # 14.2 H Seg Neutrophils # Man Lymphocytes # (Manual) Eosinophils # (Manual) D-Dimer ABG pH POC ABG pCO2 POC ABG pO2 ABG pO2 181.8 H ABG HCO3 ABG O2 Saturation 99.1 H ABG Base Excess ABG Hemoglobin 11.4 L ABG Oxyhemoglobin ABG Sodium ABG Potassium ABG Chloride ABG Glucose Oxyhemoglobin Carboxyhemoglobin Sodium Potassium Chloride Carbon Dioxide BUN Creatinine Glucose POC Glucose 117 H Lactic Acid Calcium Ferritin AST ALT Lactate Dehydrogenase C-Reactive Protein Total Protein Albumin Triglycerides Arterial Blood Glucose Arterial Blood Ionized Calcium Urine Creatinine Urine Total Protein Vancomycin Trough Coronavirus (PCR) SARS-CoV-2 IgG Ab 07/09/20 07/09/20 07/09/20 04:00 04:00 04:49 WBC RBC Hgb Hct MCH MCHC RDW Plt Count Lymph % (Auto) Lymph # (Auto) Seg Neutrophils % Seg Neuts % (Manual) Lymphocytes % (Manual) Eosinophils % (Manual) Nucleated RBC % Seg Neutrophils # Seg Neutrophils # Man Lymphocytes # (Manual) Eosinophils # (Manual) D-Dimer ABG pH POC ABG pCO2 POC ABG pO2 ABG pO2 ABG HCO3 26.2 H ABG O2 Saturation ABG Base Excess ABG Hemoglobin 11.2 L ABG Oxyhemoglobin ABG Sodium ABG Potassium ABG Chloride ABG Glucose Oxyhemoglobin 94.9 L Carboxyhemoglobin Sodium Potassium Chloride Carbon Dioxide BUN Creatinine Glucose 158 H POC Glucose Lactic Acid Calcium 8.2 L Ferritin 320.0 H AST ALT Lactate Dehydrogenase 391 H C-Reactive Protein 9.50 H Total Protein 5.9 L Albumin 3.2 L Triglycerides Arterial Blood Glucose Arterial Blood Ionized Calcium Urine Creatinine Urine Total Protein Vancomycin Trough Coronavirus (PCR) SARS-CoV-2 IgG Ab 07/09/20 07/09/20 07/09/20 11:56 17:49 23:39 WBC RBC Hgb Hct MCH MCHC RDW Plt Count Lymph % (Auto) Lymph # (Auto) Seg Neutrophils % Seg Neuts % (Manual) Lymphocytes % (Manual) Eosinophils % (Manual) Nucleated RBC % Seg Neutrophils # Seg Neutrophils # Man Lymphocytes # (Manual) Eosinophils # (Manual) D-Dimer ABG pH POC ABG pCO2 POC ABG pO2 ABG pO2 ABG HCO3 ABG O2 Saturation ABG Base Excess ABG Hemoglobin ABG Oxyhemoglobin ABG Sodium ABG Potassium ABG Chloride ABG Glucose Oxyhemoglobin Carboxyhemoglobin Sodium Potassium Chloride Carbon Dioxide BUN Creatinine Glucose POC Glucose 156 H 119 H 145 H Lactic Acid Calcium Ferritin AST ALT Lactate Dehydrogenase C-Reactive Protein Total Protein Albumin Triglycerides Arterial Blood Glucose Arterial Blood Ionized Calcium Urine Creatinine Urine Total Protein Vancomycin Trough Coronavirus (PCR) SARS-CoV-2 IgG Ab 07/10/20 07/10/20 07/10/20 03:32 05:26 11:22 WBC RBC Hgb Hct MCH MCHC RDW Plt Count Lymph % (Auto) Lymph # (Auto) Seg Neutrophils % Seg Neuts % (Manual) Lymphocytes % (Manual) Eosinophils % (Manual) Nucleated RBC % Seg Neutrophils # Seg Neutrophils # Man Lymphocytes # (Manual) Eosinophils # (Manual) D-Dimer ABG pH POC ABG pCO2 POC ABG pO2 ABG pO2 75.7 L ABG HCO3 27.5 H ABG O2 Saturation ABG Base Excess ABG Hemoglobin 9.3 L ABG Oxyhemoglobin ABG Sodium ABG Potassium ABG Chloride ABG Glucose Oxyhemoglobin 94.7 L Carboxyhemoglobin Sodium Potassium Chloride Carbon Dioxide BUN Creatinine Glucose POC Glucose 156 H 148 H Lactic Acid Calcium Ferritin AST ALT Lactate Dehydrogenase C-Reactive Protein Total Protein Albumin Triglycerides Arterial Blood Glucose Arterial Blood Ionized Calcium Urine Creatinine Urine Total Protein Vancomycin Trough Coronavirus (PCR) SARS-CoV-2 IgG Ab 07/10/20 07/10/20 07/10/20 12:10 12:10 18:20 WBC 14.1 H RBC 3.33 L Hgb 9.9 L Hct MCH MCHC RDW Plt Count Lymph % (Auto) Lymph # (Auto) Seg Neutrophils % Seg Neuts % (Manual) 89.0 H Lymphocytes % (Manual) 8.0 L Eosinophils % (Manual) Nucleated RBC % Seg Neutrophils # Seg Neutrophils # Man 12.5 H Lymphocytes # (Manual) 1.1 L Eosinophils # (Manual) D-Dimer ABG pH POC ABG pCO2 POC ABG pO2 ABG pO2 ABG HCO3 ABG O2 Saturation ABG Base Excess ABG Hemoglobin ABG Oxyhemoglobin ABG Sodium ABG Potassium ABG Chloride ABG Glucose Oxyhemoglobin Carboxyhemoglobin Sodium Potassium Chloride Carbon Dioxide BUN 21 H Creatinine Glucose 154 H POC Glucose 181 H Lactic Acid Calcium 8.0 L Ferritin AST ALT Lactate Dehydrogenase C-Reactive Protein Total Protein 5.4 L Albumin 3.0 L Triglycerides Arterial Blood Glucose Arterial Blood Ionized Calcium Urine Creatinine Urine Total Protein Vancomycin Trough Coronavirus (PCR) SARS-CoV-2 IgG Ab 07/10/20 07/11/20 07/11/20 23:51 04:05 05:43 WBC RBC Hgb Hct MCH MCHC RDW Plt Count Lymph % (Auto) Lymph # (Auto) Seg Neutrophils % Seg Neuts % (Manual) Lymphocytes % (Manual) Eosinophils % (Manual) Nucleated RBC % Seg Neutrophils # Seg Neutrophils # Man Lymphocytes # (Manual) Eosinophils # (Manual) D-Dimer ABG pH 7.348 L POC ABG pCO2 POC ABG pO2 ABG pO2 93.6 H ABG HCO3 28.5 H ABG O2 Saturation ABG Base Excess ABG Hemoglobin 10.1 L ABG Oxyhemoglobin ABG Sodium ABG Potassium ABG Chloride ABG Glucose Oxyhemoglobin Carboxyhemoglobin Sodium Potassium Chloride Carbon Dioxide BUN Creatinine Glucose POC Glucose 116 H 132 H Lactic Acid Calcium Ferritin AST ALT Lactate Dehydrogenase C-Reactive Protein Total Protein Albumin Triglycerides Arterial Blood Glucose Arterial Blood Ionized Calcium Urine Creatinine Urine Total Protein Vancomycin Trough Coronavirus (PCR) SARS-CoV-2 IgG Ab 07/11/20 07/11/20 07/11/20 09:11 09:11 09:11 WBC 15.8 H RBC 3.44 L Hgb Hct MCH MCHC RDW Plt Count Lymph % (Auto) Lymph # (Auto) Seg Neutrophils % Seg Neuts % (Manual) 92.0 H Lymphocytes % (Manual) 4.0 L Eosinophils % (Manual) Nucleated RBC % Seg Neutrophils # Seg Neutrophils # Man 14.5 H Lymphocytes # (Manual) 0.6 L Eosinophils # (Manual) D-Dimer 360.61 H ABG pH POC ABG pCO2 POC ABG pO2 ABG pO2 ABG HCO3 ABG O2 Saturation ABG Base Excess ABG Hemoglobin ABG Oxyhemoglobin ABG Sodium ABG Potassium ABG Chloride ABG Glucose Oxyhemoglobin Carboxyhemoglobin Sodium Potassium Chloride 107.1 H Carbon Dioxide BUN 22 H Creatinine Glucose 149 H POC Glucose Lactic Acid Calcium 7.8 L Ferritin AST ALT Lactate Dehydrogenase 483 H C-Reactive Protein 2.30 H Total Protein 4.9 L Albumin 3.0 L Triglycerides Arterial Blood Glucose Arterial Blood Ionized Calcium Urine Creatinine Urine Total Protein Vancomycin Trough Coronavirus (PCR) SARS-CoV-2 IgG Ab 07/11/20 07/11/20 07/11/20 09:11 12:16 17:55 WBC RBC Hgb Hct MCH MCHC RDW Plt Count Lymph % (Auto) Lymph # (Auto) Seg Neutrophils % Seg Neuts % (Manual) Lymphocytes % (Manual) Eosinophils % (Manual) Nucleated RBC % Seg Neutrophils # Seg Neutrophils # Man Lymphocytes # (Manual) Eosinophils # (Manual) D-Dimer ABG pH POC ABG pCO2 POC ABG pO2 ABG pO2 ABG HCO3 ABG O2 Saturation ABG Base Excess ABG Hemoglobin ABG Oxyhemoglobin ABG Sodium ABG Potassium ABG Chloride ABG Glucose Oxyhemoglobin Carboxyhemoglobin Sodium Potassium Chloride Carbon Dioxide BUN Creatinine Glucose POC Glucose 157 H 166 H Lactic Acid Calcium Ferritin 371.2 H AST ALT Lactate Dehydrogenase C-Reactive Protein Total Protein Albumin Triglycerides Arterial Blood Glucose Arterial Blood Ionized Calcium Urine Creatinine Urine Total Protein Vancomycin Trough Coronavirus (PCR) SARS-CoV-2 IgG Ab 07/12/20 07/12/20 07/12/20 00:32 04:00 04:00 WBC RBC 3.52 L Hgb Hct MCH MCHC RDW Plt Count Lymph % (Auto) Lymph # (Auto) Seg Neutrophils % Seg Neuts % (Manual) 90.0 H Lymphocytes % (Manual) 4.0 L Eosinophils % (Manual) Nucleated RBC % Seg Neutrophils # Seg Neutrophils # Man 9.5 H Lymphocytes # (Manual) 0.4 L Eosinophils # (Manual) D-Dimer ABG pH POC ABG pCO2 POC ABG pO2 ABG pO2 ABG HCO3 ABG O2 Saturation ABG Base Excess ABG Hemoglobin ABG Oxyhemoglobin ABG Sodium ABG Potassium ABG Chloride ABG Glucose Oxyhemoglobin Carboxyhemoglobin Sodium Potassium Chloride Carbon Dioxide 31 H BUN 21 H Creatinine Glucose 175 H POC Glucose 178 H Lactic Acid Calcium 8.0 L Ferritin AST ALT Lactate Dehydrogenase C-Reactive Protein Total Protein 5.4 L Albumin 3.0 L Triglycerides Arterial Blood Glucose Arterial Blood Ionized Calcium Urine Creatinine Urine Total Protein Vancomycin Trough Coronavirus (PCR) SARS-CoV-2 IgG Ab 07/12/20 07/12/20 07/12/20 04:01 05:47 12:09 WBC RBC Hgb Hct MCH MCHC RDW Plt Count Lymph % (Auto) Lymph # (Auto) Seg Neutrophils % Seg Neuts % (Manual) Lymphocytes % (Manual) Eosinophils % (Manual) Nucleated RBC % Seg Neutrophils # Seg Neutrophils # Man Lymphocytes # (Manual) Eosinophils # (Manual) D-Dimer ABG pH 7.465 H POC ABG pCO2 POC ABG pO2 ABG pO2 ABG HCO3 ABG O2 Saturation ABG Base Excess ABG Hemoglobin 10.6 L ABG Oxyhemoglobin ABG Sodium ABG Potassium ABG Chloride ABG Glucose 177 H Oxyhemoglobin Carboxyhemoglobin Sodium Potassium Chloride Carbon Dioxide BUN Creatinine Glucose POC Glucose 185 H 227 H Lactic Acid Calcium Ferritin AST ALT Lactate Dehydrogenase C-Reactive Protein Total Protein Albumin Triglycerides Arterial Blood Glucose 177 H Arterial Blood Ionized Calcium 4.5 L Urine Creatinine Urine Total Protein Vancomycin Trough Coronavirus (PCR) SARS-CoV-2 IgG Ab 07/12/20 07/12/20 07/13/20 17:34 23:57 05:06 WBC RBC Hgb Hct MCH MCHC RDW Plt Count Lymph % (Auto) Lymph # (Auto) Seg Neutrophils % Seg Neuts % (Manual) Lymphocytes % (Manual) Eosinophils % (Manual) Nucleated RBC % Seg Neutrophils # Seg Neutrophils # Man Lymphocytes # (Manual) Eosinophils # (Manual) D-Dimer ABG pH POC ABG pCO2 POC ABG pO2 ABG pO2 ABG HCO3 ABG O2 Saturation ABG Base Excess ABG Hemoglobin ABG Oxyhemoglobin ABG Sodium ABG Potassium ABG Chloride ABG Glucose Oxyhemoglobin Carboxyhemoglobin Sodium Potassium Chloride Carbon Dioxide BUN Creatinine Glucose POC Glucose 202 H 163 H 166 H Lactic Acid Calcium Ferritin AST ALT Lactate Dehydrogenase C-Reactive Protein Total Protein Albumin Triglycerides Arterial Blood Glucose Arterial Blood Ionized Calcium Urine Creatinine Urine Total Protein Vancomycin Trough Coronavirus (PCR) SARS-CoV-2 IgG Ab 07/13/20 07/13/20 07/13/20 07:20 07:20 07:20 WBC 20.5 H RBC Hgb Hct MCH MCHC RDW Plt Count Lymph % (Auto) Lymph # (Auto) Seg Neutrophils % Seg Neuts % (Manual) 93.0 H Lymphocytes % (Manual) 3.0 L Eosinophils % (Manual) Nucleated RBC % Seg Neutrophils # Seg Neutrophils # Man 19.1 H Lymphocytes # (Manual) 0.6 L Eosinophils # (Manual) D-Dimer 826.36 H ABG pH POC ABG pCO2 POC ABG pO2 ABG pO2 ABG HCO3 ABG O2 Saturation ABG Base Excess ABG Hemoglobin ABG Oxyhemoglobin ABG Sodium ABG Potassium ABG Chloride ABG Glucose Oxyhemoglobin Carboxyhemoglobin Sodium Potassium Chloride Carbon Dioxide 31 H BUN 25 H Creatinine Glucose 163 H POC Glucose Lactic Acid Calcium 8.1 L Ferritin AST ALT Lactate Dehydrogenase 512 H C-Reactive Protein 1.80 H Total Protein 5.8 L Albumin 3.2 L Triglycerides Arterial Blood Glucose Arterial Blood Ionized Calcium Urine Creatinine Urine Total Protein Vancomycin Trough Coronavirus (PCR) SARS-CoV-2 IgG Ab 07/13/20 07/13/20 07/13/20 07:20 11:37 17:20 WBC RBC Hgb Hct MCH MCHC RDW Plt Count Lymph % (Auto) Lymph # (Auto) Seg Neutrophils % Seg Neuts % (Manual) Lymphocytes % (Manual) Eosinophils % (Manual) Nucleated RBC % Seg Neutrophils # Seg Neutrophils # Man Lymphocytes # (Manual) Eosinophils # (Manual) D-Dimer ABG pH POC ABG pCO2 POC ABG pO2 ABG pO2 ABG HCO3 ABG O2 Saturation ABG Base Excess ABG Hemoglobin ABG Oxyhemoglobin ABG Sodium ABG Potassium ABG Chloride ABG Glucose Oxyhemoglobin Carboxyhemoglobin Sodium Potassium Chloride Carbon Dioxide BUN Creatinine Glucose POC Glucose 232 H 210 H Lactic Acid Calcium Ferritin 219.8 H AST ALT Lactate Dehydrogenase C-Reactive Protein Total Protein Albumin Triglycerides Arterial Blood Glucose Arterial Blood Ionized Calcium Urine Creatinine Urine Total Protein Vancomycin Trough Coronavirus (PCR) SARS-CoV-2 IgG Ab 07/13/20 07/13/20 07/14/20 23:57 Unknown 05:22 WBC RBC Hgb Hct MCH MCHC RDW Plt Count Lymph % (Auto) Lymph # (Auto) Seg Neutrophils % Seg Neuts % (Manual) Lymphocytes % (Manual) Eosinophils % (Manual) Nucleated RBC % Seg Neutrophils # Seg Neutrophils # Man Lymphocytes # (Manual) Eosinophils # (Manual) D-Dimer ABG pH 7.341 L POC ABG pCO2 POC ABG pO2 133.0 H ABG pO2 56.5 L ABG HCO3 29.7 H ABG O2 Saturation 89.3 L ABG Base Excess ABG Hemoglobin 11.0 L ABG Oxyhemoglobin ABG Sodium ABG Potassium ABG Chloride ABG Glucose 207 H Oxyhemoglobin 87.7 L Carboxyhemoglobin Sodium Potassium Chloride Carbon Dioxide BUN Creatinine Glucose POC Glucose 190 H Lactic Acid Calcium Ferritin AST ALT Lactate Dehydrogenase C-Reactive Protein Total Protein Albumin Triglycerides Arterial Blood Glucose 207 H Arterial Blood Ionized Calcium 4.5 L Urine Creatinine Urine Total Protein Vancomycin Trough Coronavirus (PCR) SARS-CoV-2 IgG Ab 07/14/20 07/14/20 07/14/20 05:54 11:16 17:50 WBC RBC Hgb Hct MCH MCHC RDW Plt Count Lymph % (Auto) Lymph # (Auto) Seg Neutrophils % Seg Neuts % (Manual) Lymphocytes % (Manual) Eosinophils % (Manual) Nucleated RBC % Seg Neutrophils # Seg Neutrophils # Man Lymphocytes # (Manual) Eosinophils # (Manual) D-Dimer ABG pH POC ABG pCO2 POC ABG pO2 ABG pO2 ABG HCO3 ABG O2 Saturation ABG Base Excess ABG Hemoglobin ABG Oxyhemoglobin ABG Sodium ABG Potassium ABG Chloride ABG Glucose Oxyhemoglobin Carboxyhemoglobin Sodium Potassium Chloride Carbon Dioxide BUN Creatinine Glucose POC Glucose 206 H 196 H 205 H Lactic Acid Calcium Ferritin AST ALT Lactate Dehydrogenase C-Reactive Protein Total Protein Albumin Triglycerides Arterial Blood Glucose Arterial Blood Ionized Calcium Urine Creatinine Urine Total Protein Vancomycin Trough Coronavirus (PCR) SARS-CoV-2 IgG Ab 07/14/20 07/15/20 07/15/20 23:28 03:16 06:12 WBC RBC Hgb Hct MCH MCHC RDW Plt Count Lymph % (Auto) Lymph # (Auto) Seg Neutrophils % Seg Neuts % (Manual) Lymphocytes % (Manual) Eosinophils % (Manual) Nucleated RBC % Seg Neutrophils # Seg Neutrophils # Man Lymphocytes # (Manual) Eosinophils # (Manual) D-Dimer ABG pH POC ABG pCO2 49.2 H POC ABG pO2 120.3 H ABG pO2 ABG HCO3 ABG O2 Saturation ABG Base Excess ABG Hemoglobin 9.5 L ABG Oxyhemoglobin ABG Sodium ABG Potassium ABG Chloride ABG Glucose 148 H Oxyhemoglobin Carboxyhemoglobin Sodium Potassium Chloride Carbon Dioxide BUN Creatinine Glucose POC Glucose 160 H 178 H Lactic Acid Calcium Ferritin AST ALT Lactate Dehydrogenase C-Reactive Protein Total Protein Albumin Triglycerides Arterial Blood Glucose 148 H Arterial Blood Ionized Calcium Urine Creatinine Urine Total Protein Vancomycin Trough Coronavirus (PCR) SARS-CoV-2 IgG Ab 07/15/20 07/15/20 07/15/20 09:00 12:32 14:30 WBC RBC Hgb Hct MCH MCHC RDW Plt Count Lymph % (Auto) Lymph # (Auto) Seg Neutrophils % Seg Neuts % (Manual) Lymphocytes % (Manual) Eosinophils % (Manual) Nucleated RBC % Seg Neutrophils # Seg Neutrophils # Man Lymphocytes # (Manual) Eosinophils # (Manual) D-Dimer ABG pH POC ABG pCO2 POC ABG pO2 ABG pO2 ABG HCO3 ABG O2 Saturation ABG Base Excess ABG Hemoglobin ABG Oxyhemoglobin ABG Sodium ABG Potassium ABG Chloride ABG Glucose Oxyhemoglobin Carboxyhemoglobin Sodium Potassium Chloride Carbon Dioxide BUN Creatinine Glucose POC Glucose 173 H Lactic Acid Calcium Ferritin AST ALT Lactate Dehydrogenase 531 H C-Reactive Protein Total Protein Albumin Triglycerides Arterial Blood Glucose Arterial Blood Ionized Calcium Urine Creatinine Urine Total Protein Vancomycin Trough Coronavirus (PCR) SARS-CoV-2 IgG Ab Reactive A 07/15/20 07/15/20 07/16/20 18:24 23:35 04:03 WBC RBC Hgb Hct MCH MCHC RDW Plt Count Lymph % (Auto) Lymph # (Auto) Seg Neutrophils % Seg Neuts % (Manual) Lymphocytes % (Manual) Eosinophils % (Manual) Nucleated RBC % Seg Neutrophils # Seg Neutrophils # Man Lymphocytes # (Manual) Eosinophils # (Manual) D-Dimer ABG pH POC ABG pCO2 POC ABG pO2 ABG pO2 72.7 L ABG HCO3 35.5 H ABG O2 Saturation ABG Base Excess 9.4 H ABG Hemoglobin 10.6 L ABG Oxyhemoglobin ABG Sodium ABG Potassium ABG Chloride ABG Glucose Oxyhemoglobin 93.6 L Carboxyhemoglobin Sodium Potassium Chloride Carbon Dioxide BUN Creatinine Glucose POC Glucose 173 H 181 H Lactic Acid Calcium Ferritin AST ALT Lactate Dehydrogenase C-Reactive Protein Total Protein Albumin Triglycerides Arterial Blood Glucose Arterial Blood Ionized Calcium Urine Creatinine Urine Total Protein Vancomycin Trough Coronavirus (PCR) SARS-CoV-2 IgG Ab 07/16/20 07/16/20 07/16/20 05:35 09:00 09:00 WBC 16.5 H RBC 3.59 L Hgb Hct MCH MCHC RDW Plt Count Lymph % (Auto) Lymph # (Auto) Seg Neutrophils % Seg Neuts % (Manual) 96.0 H Lymphocytes % (Manual) 3.0 L Eosinophils % (Manual) Nucleated RBC % Seg Neutrophils # Seg Neutrophils # Man 15.8 H Lymphocytes # (Manual) 0.5 L Eosinophils # (Manual) D-Dimer ABG pH POC ABG pCO2 POC ABG pO2 ABG pO2 ABG HCO3 ABG O2 Saturation ABG Base Excess ABG Hemoglobin ABG Oxyhemoglobin ABG Sodium ABG Potassium ABG Chloride ABG Glucose Oxyhemoglobin Carboxyhemoglobin Sodium Potassium Chloride Carbon Dioxide 39 H D BUN 25 H Creatinine 0.4 L Glucose 167 H POC Glucose 129 H Lactic Acid Calcium 8.3 L Ferritin AST ALT Lactate Dehydrogenase C-Reactive Protein Total Protein Albumin Triglycerides Arterial Blood Glucose Arterial Blood Ionized Calcium Urine Creatinine Urine Total Protein Vancomycin Trough Coronavirus (PCR) SARS-CoV-2 IgG Ab 07/16/20 07/16/20 07/17/20 12:32 18:28 00:09 WBC RBC Hgb Hct MCH MCHC RDW Plt Count Lymph % (Auto) Lymph # (Auto) Seg Neutrophils % Seg Neuts % (Manual) Lymphocytes % (Manual) Eosinophils % (Manual) Nucleated RBC % Seg Neutrophils # Seg Neutrophils # Man Lymphocytes # (Manual) Eosinophils # (Manual) D-Dimer ABG pH POC ABG pCO2 POC ABG pO2 ABG pO2 ABG HCO3 ABG O2 Saturation ABG Base Excess ABG Hemoglobin ABG Oxyhemoglobin ABG Sodium ABG Potassium ABG Chloride ABG Glucose Oxyhemoglobin Carboxyhemoglobin Sodium Potassium Chloride Carbon Dioxide BUN Creatinine Glucose POC Glucose 187 H 174 H 184 H Lactic Acid Calcium Ferritin AST ALT Lactate Dehydrogenase C-Reactive Protein Total Protein Albumin Triglycerides Arterial Blood Glucose Arterial Blood Ionized Calcium Urine Creatinine Urine Total Protein Vancomycin Trough Coronavirus (PCR) SARS-CoV-2 IgG Ab 07/17/20 07/17/20 07/17/20 04:30 05:47 13:03 WBC RBC Hgb Hct MCH MCHC RDW Plt Count Lymph % (Auto) Lymph # (Auto) Seg Neutrophils % Seg Neuts % (Manual) Lymphocytes % (Manual) Eosinophils % (Manual) Nucleated RBC % Seg Neutrophils # Seg Neutrophils # Man Lymphocytes # (Manual) Eosinophils # (Manual) D-Dimer ABG pH POC ABG pCO2 POC ABG pO2 ABG pO2 ABG HCO3 38.1 H ABG O2 Saturation ABG Base Excess 11.3 H ABG Hemoglobin 10.5 L ABG Oxyhemoglobin ABG Sodium ABG Potassium ABG Chloride ABG Glucose Oxyhemoglobin Carboxyhemoglobin Sodium Potassium Chloride Carbon Dioxide BUN Creatinine Glucose POC Glucose 135 H 210 H Lactic Acid Calcium Ferritin AST ALT Lactate Dehydrogenase C-Reactive Protein Total Protein Albumin Triglycerides Arterial Blood Glucose Arterial Blood Ionized Calcium Urine Creatinine Urine Total Protein Vancomycin Trough Coronavirus (PCR) SARS-CoV-2 IgG Ab 07/17/20 07/17/20 07/18/20 16:50 23:39 04:01 WBC RBC Hgb Hct MCH MCHC RDW Plt Count Lymph % (Auto) Lymph # (Auto) Seg Neutrophils % Seg Neuts % (Manual) Lymphocytes % (Manual) Eosinophils % (Manual) Nucleated RBC % Seg Neutrophils # Seg Neutrophils # Man Lymphocytes # (Manual) Eosinophils # (Manual) D-Dimer ABG pH POC ABG pCO2 56.8 H POC ABG pO2 61.9 L ABG pO2 ABG HCO3 ABG O2 Saturation ABG Base Excess ABG Hemoglobin 11.7 L ABG Oxyhemoglobin ABG Sodium 134.2 L ABG Potassium 4.7 H ABG Chloride 97.0 L ABG Glucose 173 H Oxyhemoglobin Carboxyhemoglobin Sodium Potassium Chloride Carbon Dioxide BUN Creatinine Glucose POC Glucose 193 H 163 H Lactic Acid Calcium Ferritin AST ALT Lactate Dehydrogenase C-Reactive Protein Total Protein Albumin Triglycerides Arterial Blood Glucose 173 H Arterial Blood Ionized Calcium Urine Creatinine Urine Total Protein Vancomycin Trough Coronavirus (PCR) SARS-CoV-2 IgG Ab 07/18/20 07/18/20 07/18/20 05:41 12:03 17:26 WBC RBC Hgb Hct MCH MCHC RDW Plt Count Lymph % (Auto) Lymph # (Auto) Seg Neutrophils % Seg Neuts % (Manual) Lymphocytes % (Manual) Eosinophils % (Manual) Nucleated RBC % Seg Neutrophils # Seg Neutrophils # Man Lymphocytes # (Manual) Eosinophils # (Manual) D-Dimer ABG pH POC ABG pCO2 POC ABG pO2 ABG pO2 ABG HCO3 ABG O2 Saturation ABG Base Excess ABG Hemoglobin ABG Oxyhemoglobin ABG Sodium ABG Potassium ABG Chloride ABG Glucose Oxyhemoglobin Carboxyhemoglobin Sodium Potassium Chloride Carbon Dioxide BUN Creatinine Glucose POC Glucose 153 H 177 H 160 H Lactic Acid Calcium Ferritin AST ALT Lactate Dehydrogenase C-Reactive Protein Total Protein Albumin Triglycerides Arterial Blood Glucose Arterial Blood Ionized Calcium Urine Creatinine Urine Total Protein Vancomycin Trough Coronavirus (PCR) SARS-CoV-2 IgG Ab 07/18/20 07/19/20 07/19/20 23:58 04:15 05:05 WBC RBC Hgb Hct MCH MCHC RDW Plt Count Lymph % (Auto) Lymph # (Auto) Seg Neutrophils % Seg Neuts % (Manual) Lymphocytes % (Manual) Eosinophils % (Manual) Nucleated RBC % Seg Neutrophils # Seg Neutrophils # Man Lymphocytes # (Manual) Eosinophils # (Manual) D-Dimer ABG pH 7.465 H POC ABG pCO2 49.1 H POC ABG pO2 49.4 L ABG pO2 ABG HCO3 ABG O2 Saturation ABG Base Excess ABG Hemoglobin 11.6 L ABG Oxyhemoglobin ABG Sodium 132.3 L ABG Potassium ABG Chloride 97.0 L ABG Glucose 148 H Oxyhemoglobin Carboxyhemoglobin Sodium Potassium Chloride Carbon Dioxide BUN Creatinine Glucose POC Glucose 144 H 117 H Lactic Acid Calcium Ferritin AST ALT Lactate Dehydrogenase C-Reactive Protein Total Protein Albumin Triglycerides Arterial Blood Glucose 148 H Arterial Blood Ionized Calcium Urine Creatinine Urine Total Protein Vancomycin Trough Coronavirus (PCR) SARS-CoV-2 IgG Ab 07/19/20 07/19/20 07/19/20 08:30 08:30 13:21 WBC 17.2 H RBC 3.59 L Hgb Hct MCH MCHC RDW Plt Count Lymph % (Auto) Lymph # (Auto) Seg Neutrophils % Seg Neuts % (Manual) Lymphocytes % (Manual) Eosinophils % (Manual) Nucleated RBC % Seg Neutrophils # Seg Neutrophils # Man Lymphocytes # (Manual) Eosinophils # (Manual) D-Dimer ABG pH POC ABG pCO2 POC ABG pO2 ABG pO2 ABG HCO3 ABG O2 Saturation ABG Base Excess ABG Hemoglobin ABG Oxyhemoglobin ABG Sodium ABG Potassium ABG Chloride ABG Glucose Oxyhemoglobin Carboxyhemoglobin Sodium Potassium Chloride 95.7 L Carbon Dioxide 37 H BUN 20 H Creatinine 0.4 L Glucose 125 H POC Glucose 137 H Lactic Acid Calcium 8.1 L Ferritin AST ALT Lactate Dehydrogenase C-Reactive Protein Total Protein Albumin Triglycerides Arterial Blood Glucose Arterial Blood Ionized Calcium Urine Creatinine Urine Total Protein Vancomycin Trough Coronavirus (PCR) SARS-CoV-2 IgG Ab 07/19/20 07/19/20 07/20/20 16:29 17:28 00:25 WBC RBC Hgb Hct MCH MCHC RDW Plt Count Lymph % (Auto) Lymph # (Auto) Seg Neutrophils % Seg Neuts % (Manual) Lymphocytes % (Manual) Eosinophils % (Manual) Nucleated RBC % Seg Neutrophils # Seg Neutrophils # Man Lymphocytes # (Manual) Eosinophils # (Manual) D-Dimer ABG pH POC ABG pCO2 53.4 H POC ABG pO2 71.0 L ABG pO2 ABG HCO3 ABG O2 Saturation ABG Base Excess ABG Hemoglobin 11.2 L ABG Oxyhemoglobin 93.6 L ABG Sodium 130.9 L ABG Potassium ABG Chloride 95.0 L ABG Glucose 188 H Oxyhemoglobin Carboxyhemoglobin Sodium Potassium Chloride Carbon Dioxide BUN Creatinine Glucose POC Glucose 174 H 188 H Lactic Acid Calcium Ferritin AST ALT Lactate Dehydrogenase C-Reactive Protein Total Protein Albumin Triglycerides Arterial Blood Glucose 188 H Arterial Blood Ionized Calcium 4.4 L Urine Creatinine Urine Total Protein Vancomycin Trough Coronavirus (PCR) SARS-CoV-2 IgG Ab 07/20/20 07/20/20 07/20/20 04:14 05:23 12:12 WBC RBC Hgb Hct MCH MCHC RDW Plt Count Lymph % (Auto) Lymph # (Auto) Seg Neutrophils % Seg Neuts % (Manual) Lymphocytes % (Manual) Eosinophils % (Manual) Nucleated RBC % Seg Neutrophils # Seg Neutrophils # Man Lymphocytes # (Manual) Eosinophils # (Manual) D-Dimer ABG pH POC ABG pCO2 52.7 H POC ABG pO2 59.5 L ABG pO2 ABG HCO3 ABG O2 Saturation ABG Base Excess ABG Hemoglobin 10.6 L ABG Oxyhemoglobin ABG Sodium 134.4 L ABG Potassium ABG Chloride ABG Glucose 176 H Oxyhemoglobin Carboxyhemoglobin Sodium Potassium Chloride Carbon Dioxide BUN Creatinine Glucose POC Glucose 212 H 190 H Lactic Acid Calcium Ferritin AST ALT Lactate Dehydrogenase C-Reactive Protein Total Protein Albumin Triglycerides Arterial Blood Glucose 176 H Arterial Blood Ionized Calcium 4.5 L Urine Creatinine Urine Total Protein Vancomycin Trough Coronavirus (PCR) SARS-CoV-2 IgG Ab 07/20/20 07/21/20 07/21/20 16:59 00:01 04:30 WBC RBC Hgb Hct MCH MCHC RDW Plt Count Lymph % (Auto) Lymph # (Auto) Seg Neutrophils % Seg Neuts % (Manual) Lymphocytes % (Manual) Eosinophils % (Manual) Nucleated RBC % Seg Neutrophils # Seg Neutrophils # Man Lymphocytes # (Manual) Eosinophils # (Manual) D-Dimer ABG pH 7.468 H POC ABG pCO2 POC ABG pO2 63.3 L ABG pO2 ABG HCO3 ABG O2 Saturation ABG Base Excess ABG Hemoglobin 11 L ABG Oxyhemoglobin ABG Sodium 135.0 L ABG Potassium ABG Chloride ABG Glucose 204 H Oxyhemoglobin Carboxyhemoglobin Sodium Potassium Chloride Carbon Dioxide BUN Creatinine Glucose POC Glucose 201 H 177 H Lactic Acid Calcium Ferritin AST ALT Lactate Dehydrogenase C-Reactive Protein Total Protein Albumin Triglycerides Arterial Blood Glucose 204 H Arterial Blood Ionized Calcium 4.5 L Urine Creatinine Urine Total Protein Vancomycin Trough Coronavirus (PCR) SARS-CoV-2 IgG Ab 07/21/20 07/21/20 07/21/20 05:26 11:50 17:16 WBC RBC Hgb Hct MCH MCHC RDW Plt Count Lymph % (Auto) Lymph # (Auto) Seg Neutrophils % Seg Neuts % (Manual) Lymphocytes % (Manual) Eosinophils % (Manual) Nucleated RBC % Seg Neutrophils # Seg Neutrophils # Man Lymphocytes # (Manual) Eosinophils # (Manual) D-Dimer ABG pH POC ABG pCO2 POC ABG pO2 ABG pO2 ABG HCO3 ABG O2 Saturation ABG Base Excess ABG Hemoglobin ABG Oxyhemoglobin ABG Sodium ABG Potassium ABG Chloride ABG Glucose Oxyhemoglobin Carboxyhemoglobin Sodium Potassium Chloride Carbon Dioxide BUN Creatinine Glucose POC Glucose 175 H 157 H 148 H Lactic Acid Calcium Ferritin AST ALT Lactate Dehydrogenase C-Reactive Protein Total Protein Albumin Triglycerides Arterial Blood Glucose Arterial Blood Ionized Calcium Urine Creatinine Urine Total Protein Vancomycin Trough Coronavirus (PCR) SARS-CoV-2 IgG Ab 07/22/20 07/22/20 07/22/20 00:01 03:26 05:16 WBC RBC Hgb Hct MCH MCHC RDW Plt Count Lymph % (Auto) Lymph # (Auto) Seg Neutrophils % Seg Neuts % (Manual) Lymphocytes % (Manual) Eosinophils % (Manual) Nucleated RBC % Seg Neutrophils # Seg Neutrophils # Man Lymphocytes # (Manual) Eosinophils # (Manual) D-Dimer ABG pH POC ABG pCO2 POC ABG pO2 54.2 L ABG pO2 ABG HCO3 ABG O2 Saturation ABG Base Excess ABG Hemoglobin 10.9 L ABG Oxyhemoglobin ABG Sodium 133.7 L ABG Potassium ABG Chloride ABG Glucose 217 H Oxyhemoglobin Carboxyhemoglobin Sodium Potassium Chloride Carbon Dioxide BUN Creatinine Glucose POC Glucose 172 H 182 H Lactic Acid Calcium Ferritin AST ALT Lactate Dehydrogenase C-Reactive Protein Total Protein Albumin Triglycerides Arterial Blood Glucose 217 H Arterial Blood Ionized Calcium 4.5 L Urine Creatinine Urine Total Protein Vancomycin Trough Coronavirus (PCR) SARS-CoV-2 IgG Ab 07/22/20 07/22/20 07/23/20 11:43 17:08 04:00 WBC 11.6 H RBC 3.54 L Hgb Hct MCH MCHC RDW Plt Count Lymph % (Auto) Lymph # (Auto) Seg Neutrophils % Seg Neuts % (Manual) 94.0 H Lymphocytes % (Manual) 5.0 L Eosinophils % (Manual) Nucleated RBC % Seg Neutrophils # Seg Neutrophils # Man 10.9 H Lymphocytes # (Manual) 0.6 L Eosinophils # (Manual) D-Dimer ABG pH POC ABG pCO2 POC ABG pO2 ABG pO2 ABG HCO3 ABG O2 Saturation ABG Base Excess ABG Hemoglobin ABG Oxyhemoglobin ABG Sodium ABG Potassium ABG Chloride ABG Glucose Oxyhemoglobin Carboxyhemoglobin Sodium Potassium Chloride Carbon Dioxide BUN Creatinine Glucose POC Glucose 159 H 163 H Lactic Acid Calcium Ferritin AST ALT Lactate Dehydrogenase C-Reactive Protein Total Protein Albumin Triglycerides Arterial Blood Glucose Arterial Blood Ionized Calcium Urine Creatinine Urine Total Protein Vancomycin Trough Coronavirus (PCR) SARS-CoV-2 IgG Ab 07/23/20 07/23/20 07/23/20 04:00 04:53 04:54 WBC RBC Hgb Hct MCH MCHC RDW Plt Count Lymph % (Auto) Lymph # (Auto) Seg Neutrophils % Seg Neuts % (Manual) Lymphocytes % (Manual) Eosinophils % (Manual) Nucleated RBC % Seg Neutrophils # Seg Neutrophils # Man Lymphocytes # (Manual) Eosinophils # (Manual) D-Dimer ABG pH 7.453 H POC ABG pCO2 POC ABG pO2 ABG pO2 ABG HCO3 32.4 H ABG O2 Saturation ABG Base Excess 7.5 H ABG Hemoglobin 10.7 L ABG Oxyhemoglobin ABG Sodium ABG Potassium ABG Chloride ABG Glucose Oxyhemoglobin Carboxyhemoglobin Sodium Potassium Chloride Carbon Dioxide 35 H BUN Creatinine 0.4 L Glucose 112 H POC Glucose 169 H Lactic Acid Calcium 8.2 L Ferritin AST ALT Lactate Dehydrogenase C-Reactive Protein Total Protein Albumin Triglycerides Arterial Blood Glucose Arterial Blood Ionized Calcium Urine Creatinine Urine Total Protein Vancomycin Trough Coronavirus (PCR) SARS-CoV-2 IgG Ab 07/23/20 07/23/20 07/23/20 11:50 23:19 Unknown WBC RBC Hgb Hct MCH MCHC RDW Plt Count Lymph % (Auto) Lymph # (Auto) Seg Neutrophils % Seg Neuts % (Manual) Lymphocytes % (Manual) Eosinophils % (Manual) Nucleated RBC % Seg Neutrophils # Seg Neutrophils # Man Lymphocytes # (Manual) Eosinophils # (Manual) D-Dimer ABG pH POC ABG pCO2 POC ABG pO2 ABG pO2 ABG HCO3 ABG O2 Saturation ABG Base Excess ABG Hemoglobin ABG Oxyhemoglobin ABG Sodium ABG Potassium ABG Chloride ABG Glucose Oxyhemoglobin Carboxyhemoglobin Sodium Potassium Chloride Carbon Dioxide BUN Creatinine Glucose POC Glucose 118 H 168 H Lactic Acid Calcium Ferritin AST ALT Lactate Dehydrogenase C-Reactive Protein Total Protein Albumin Triglycerides Arterial Blood Glucose Arterial Blood Ionized Calcium Urine Creatinine Urine Total Protein Vancomycin Trough Coronavirus (PCR) Positive A SARS-CoV-2 IgG Ab 07/24/20 07/24/20 07/24/20 04:11 05:37 11:42 WBC RBC Hgb Hct MCH MCHC RDW Plt Count Lymph % (Auto) Lymph # (Auto) Seg Neutrophils % Seg Neuts % (Manual) Lymphocytes % (Manual) Eosinophils % (Manual) Nucleated RBC % Seg Neutrophils # Seg Neutrophils # Man Lymphocytes # (Manual) Eosinophils # (Manual) D-Dimer ABG pH POC ABG pCO2 POC ABG pO2 ABG pO2 54.4 L ABG HCO3 34.3 H ABG O2 Saturation 89.0 L ABG Base Excess 8.5 H ABG Hemoglobin 11.0 L ABG Oxyhemoglobin ABG Sodium ABG Potassium ABG Chloride ABG Glucose Oxyhemoglobin 87.0 L Carboxyhemoglobin Sodium Potassium Chloride Carbon Dioxide BUN Creatinine Glucose POC Glucose 115 H 166 H Lactic Acid Calcium Ferritin AST ALT Lactate Dehydrogenase C-Reactive Protein Total Protein Albumin Triglycerides Arterial Blood Glucose Arterial Blood Ionized Calcium Urine Creatinine Urine Total Protein Vancomycin Trough Coronavirus (PCR) SARS-CoV-2 IgG Ab 07/24/20 07/24/20 07/25/20 17:39 23:38 03:53 WBC RBC Hgb Hct MCH MCHC RDW Plt Count Lymph % (Auto) Lymph # (Auto) Seg Neutrophils % Seg Neuts % (Manual) Lymphocytes % (Manual) Eosinophils % (Manual) Nucleated RBC % Seg Neutrophils # Seg Neutrophils # Man Lymphocytes # (Manual) Eosinophils # (Manual) D-Dimer ABG pH POC ABG pCO2 POC ABG pO2 ABG pO2 175.9 H ABG HCO3 34.0 H ABG O2 Saturation 99.1 H ABG Base Excess 8.2 H ABG Hemoglobin 10.6 L ABG Oxyhemoglobin ABG Sodium ABG Potassium ABG Chloride ABG Glucose Oxyhemoglobin Carboxyhemoglobin Sodium Potassium Chloride Carbon Dioxide BUN Creatinine Glucose POC Glucose 150 H 139 H Lactic Acid Calcium Ferritin AST ALT Lactate Dehydrogenase C-Reactive Protein Total Protein Albumin Triglycerides Arterial Blood Glucose Arterial Blood Ionized Calcium Urine Creatinine Urine Total Protein Vancomycin Trough Coronavirus (PCR) SARS-CoV-2 IgG Ab 07/25/20 07/25/20 07/25/20 05:47 12:09 23:46 WBC RBC Hgb Hct MCH MCHC RDW Plt Count Lymph % (Auto) Lymph # (Auto) Seg Neutrophils % Seg Neuts % (Manual) Lymphocytes % (Manual) Eosinophils % (Manual) Nucleated RBC % Seg Neutrophils # Seg Neutrophils # Man Lymphocytes # (Manual) Eosinophils # (Manual) D-Dimer ABG pH POC ABG pCO2 POC ABG pO2 ABG pO2 ABG HCO3 ABG O2 Saturation ABG Base Excess ABG Hemoglobin ABG Oxyhemoglobin ABG Sodium ABG Potassium ABG Chloride ABG Glucose Oxyhemoglobin Carboxyhemoglobin Sodium Potassium Chloride Carbon Dioxide BUN Creatinine Glucose POC Glucose 144 H 152 H 116 H Lactic Acid Calcium Ferritin AST ALT Lactate Dehydrogenase C-Reactive Protein Total Protein Albumin Triglycerides Arterial Blood Glucose Arterial Blood Ionized Calcium Urine Creatinine Urine Total Protein Vancomycin Trough Coronavirus (PCR) SARS-CoV-2 IgG Ab 07/26/20 07/26/20 07/26/20 03:48 05:36 11:28 WBC RBC Hgb Hct MCH MCHC RDW Plt Count Lymph % (Auto) Lymph # (Auto) Seg Neutrophils % Seg Neuts % (Manual) Lymphocytes % (Manual) Eosinophils % (Manual) Nucleated RBC % Seg Neutrophils # Seg Neutrophils # Man Lymphocytes # (Manual) Eosinophils # (Manual) D-Dimer ABG pH POC ABG pCO2 POC ABG pO2 ABG pO2 73.4 L ABG HCO3 35.0 H ABG O2 Saturation ABG Base Excess 8.3 H ABG Hemoglobin 9.8 L ABG Oxyhemoglobin ABG Sodium ABG Potassium ABG Chloride ABG Glucose Oxyhemoglobin 93.7 L Carboxyhemoglobin Sodium Potassium Chloride Carbon Dioxide BUN Creatinine Glucose POC Glucose 136 H 145 H Lactic Acid Calcium Ferritin AST ALT Lactate Dehydrogenase C-Reactive Protein Total Protein Albumin Triglycerides Arterial Blood Glucose Arterial Blood Ionized Calcium Urine Creatinine Urine Total Protein Vancomycin Trough Coronavirus (PCR) SARS-CoV-2 IgG Ab 07/26/20 07/26/20 07/26/20 14:23 17:19 23:33 WBC 12.0 H RBC 3.12 L Hgb 9.5 L Hct 28.6 L MCH MCHC RDW Plt Count Lymph % (Auto) 4.2 L Lymph # (Auto) 0.5 L Seg Neutrophils % 89.8 H Seg Neuts % (Manual) Lymphocytes % (Manual) Eosinophils % (Manual) Nucleated RBC % Seg Neutrophils # 10.8 H Seg Neutrophils # Man Lymphocytes # (Manual) Eosinophils # (Manual) D-Dimer ABG pH POC ABG pCO2 POC ABG pO2 ABG pO2 ABG HCO3 ABG O2 Saturation ABG Base Excess ABG Hemoglobin ABG Oxyhemoglobin ABG Sodium ABG Potassium ABG Chloride ABG Glucose Oxyhemoglobin Carboxyhemoglobin Sodium Potassium Chloride Carbon Dioxide BUN Creatinine Glucose POC Glucose 202 H 122 H Lactic Acid Calcium Ferritin AST ALT Lactate Dehydrogenase C-Reactive Protein Total Protein Albumin Triglycerides Arterial Blood Glucose Arterial Blood Ionized Calcium Urine Creatinine Urine Total Protein Vancomycin Trough Coronavirus (PCR) SARS-CoV-2 IgG Ab 07/27/20 07/27/20 07/27/20 04:30 05:54 12:06 WBC RBC Hgb Hct MCH MCHC RDW Plt Count Lymph % (Auto) Lymph # (Auto) Seg Neutrophils % Seg Neuts % (Manual) Lymphocytes % (Manual) Eosinophils % (Manual) Nucleated RBC % Seg Neutrophils # Seg Neutrophils # Man Lymphocytes # (Manual) Eosinophils # (Manual) D-Dimer ABG pH POC ABG pCO2 POC ABG pO2 ABG pO2 49.0 L ABG HCO3 35.7 H ABG O2 Saturation 87.6 L ABG Base Excess 10.1 H ABG Hemoglobin 11.5 L ABG Oxyhemoglobin ABG Sodium ABG Potassium ABG Chloride ABG Glucose Oxyhemoglobin 85.4 L Carboxyhemoglobin Sodium Potassium Chloride Carbon Dioxide BUN Creatinine Glucose POC Glucose 164 H 149 H Lactic Acid Calcium Ferritin AST ALT Lactate Dehydrogenase C-Reactive Protein Total Protein Albumin Triglycerides Arterial Blood Glucose Arterial Blood Ionized Calcium Urine Creatinine Urine Total Protein Vancomycin Trough Coronavirus (PCR) SARS-CoV-2 IgG Ab 07/27/20 07/27/20 07/27/20 13:00 14:18 14:18 WBC 12.2 H RBC 3.33 L Hgb 10.0 L Hct MCH MCHC RDW Plt Count Lymph % (Auto) Lymph # (Auto) Seg Neutrophils % Seg Neuts % (Manual) 90.0 H Lymphocytes % (Manual) 7.0 L Eosinophils % (Manual) Nucleated RBC % Seg Neutrophils # Seg Neutrophils # Man 11.0 H Lymphocytes # (Manual) 0.9 L Eosinophils # (Manual) D-Dimer ABG pH 7.313 L POC ABG pCO2 POC ABG pO2 ABG pO2 107.5 H ABG HCO3 37.6 H ABG O2 Saturation ABG Base Excess 8.1 H ABG Hemoglobin 10.1 L ABG Oxyhemoglobin ABG Sodium ABG Potassium ABG Chloride ABG Glucose Oxyhemoglobin Carboxyhemoglobin Sodium Potassium Chloride 97.6 L Carbon Dioxide 35 H BUN 18 H Creatinine Glucose 135 H POC Glucose Lactic Acid Calcium 8.3 L Ferritin AST ALT Lactate Dehydrogenase C-Reactive Protein Total Protein Albumin Triglycerides Arterial Blood Glucose Arterial Blood Ionized Calcium Urine Creatinine Urine Total Protein Vancomycin Trough Coronavirus (PCR) SARS-CoV-2 IgG Ab 07/27/20 07/27/20 07/28/20 17:09 23:14 04:15 WBC RBC Hgb Hct MCH MCHC RDW Plt Count Lymph % (Auto) Lymph # (Auto) Seg Neutrophils % Seg Neuts % (Manual) Lymphocytes % (Manual) Eosinophils % (Manual) Nucleated RBC % Seg Neutrophils # Seg Neutrophils # Man Lymphocytes # (Manual) Eosinophils # (Manual) D-Dimer ABG pH 7.317 L POC ABG pCO2 POC ABG pO2 ABG pO2 130.3 H ABG HCO3 40.9 H ABG O2 Saturation ABG Base Excess 13.5 H ABG Hemoglobin 5.8 L ABG Oxyhemoglobin ABG Sodium ABG Potassium ABG Chloride ABG Glucose Oxyhemoglobin Carboxyhemoglobin Sodium Potassium Chloride Carbon Dioxide BUN Creatinine Glucose POC Glucose 115 H 139 H Lactic Acid Calcium Ferritin AST ALT Lactate Dehydrogenase C-Reactive Protein Total Protein Albumin Triglycerides Arterial Blood Glucose Arterial Blood Ionized Calcium Urine Creatinine Urine Total Protein Vancomycin Trough Coronavirus (PCR) SARS-CoV-2 IgG Ab 07/28/20 07/28/20 07/28/20 05:34 09:20 09:20 WBC RBC 2.89 L Hgb 9.5 L Hct 26.6 L MCH 33 H MCHC 36 H RDW Plt Count 123 L Lymph % (Auto) Lymph # (Auto) Seg Neutrophils % Seg Neuts % (Manual) 89.0 H Lymphocytes % (Manual) 5.0 L Eosinophils % (Manual) Nucleated RBC % Seg Neutrophils # Seg Neutrophils # Man 8.6 H Lymphocytes # (Manual) 0.5 L Eosinophils # (Manual) D-Dimer ABG pH POC ABG pCO2 POC ABG pO2 ABG pO2 ABG HCO3 ABG O2 Saturation ABG Base Excess ABG Hemoglobin ABG Oxyhemoglobin ABG Sodium ABG Potassium ABG Chloride ABG Glucose Oxyhemoglobin Carboxyhemoglobin Sodium 134 L Potassium Chloride 95.6 L Carbon Dioxide 39 H BUN Creatinine 0.3 L Glucose 131 H POC Glucose 130 H Lactic Acid Calcium 7.9 L Ferritin AST ALT Lactate Dehydrogenase C-Reactive Protein Total Protein Albumin Triglycerides Arterial Blood Glucose Arterial Blood Ionized Calcium Urine Creatinine Urine Total Protein Vancomycin Trough Coronavirus (PCR) SARS-CoV-2 IgG Ab 07/28/20 07/28/20 07/28/20 11:50 18:36 23:22 WBC RBC Hgb Hct MCH MCHC RDW Plt Count Lymph % (Auto) Lymph # (Auto) Seg Neutrophils % Seg Neuts % (Manual) Lymphocytes % (Manual) Eosinophils % (Manual) Nucleated RBC % Seg Neutrophils # Seg Neutrophils # Man Lymphocytes # (Manual) Eosinophils # (Manual) D-Dimer ABG pH POC ABG pCO2 POC ABG pO2 ABG pO2 ABG HCO3 ABG O2 Saturation ABG Base Excess ABG Hemoglobin ABG Oxyhemoglobin ABG Sodium ABG Potassium ABG Chloride ABG Glucose Oxyhemoglobin Carboxyhemoglobin Sodium Potassium Chloride Carbon Dioxide BUN Creatinine Glucose POC Glucose 128 H 119 H 122 H Lactic Acid Calcium Ferritin AST ALT Lactate Dehydrogenase C-Reactive Protein Total Protein Albumin Triglycerides Arterial Blood Glucose Arterial Blood Ionized Calcium Urine Creatinine Urine Total Protein Vancomycin Trough Coronavirus (PCR) SARS-CoV-2 IgG Ab 07/29/20 07/29/20 07/29/20 03:18 07:54 07:54 WBC 11.1 H RBC 3.49 L Hgb Hct MCH MCHC RDW Plt Count 139 L Lymph % (Auto) Lymph # (Auto) Seg Neutrophils % Seg Neuts % (Manual) 90.0 H Lymphocytes % (Manual) 1.0 L Eosinophils % (Manual) 5.0 H Nucleated RBC % Seg Neutrophils # Seg Neutrophils # Man 10.0 H Lymphocytes # (Manual) 0.1 L Eosinophils # (Manual) 0.6 H D-Dimer ABG pH POC ABG pCO2 69.5 H POC ABG pO2 109.3 H ABG pO2 ABG HCO3 ABG O2 Saturation ABG Base Excess ABG Hemoglobin 10.8 L ABG Oxyhemoglobin ABG Sodium ABG Potassium ABG Chloride 95.0 L ABG Glucose 138 H Oxyhemoglobin Carboxyhemoglobin Sodium Potassium Chloride 94.5 L Carbon Dioxide 40 H BUN Creatinine 0.5 L D Glucose 104 H POC Glucose Lactic Acid Calcium Ferritin AST ALT Lactate Dehydrogenase C-Reactive Protein Total Protein Albumin Triglycerides Arterial Blood Glucose 138 H Arterial Blood Ionized Calcium Urine Creatinine Urine Total Protein Vancomycin Trough Coronavirus (PCR) SARS-CoV-2 IgG Ab 07/29/20 07/29/20 07/29/20 11:05 18:17 19:41 WBC RBC Hgb Hct MCH MCHC RDW Plt Count Lymph % (Auto) Lymph # (Auto) Seg Neutrophils % Seg Neuts % (Manual) Lymphocytes % (Manual) Eosinophils % (Manual) Nucleated RBC % Seg Neutrophils # Seg Neutrophils # Man Lymphocytes # (Manual) Eosinophils # (Manual) D-Dimer ABG pH 7.305 L POC ABG pCO2 73.3 H 66.7 H POC ABG pO2 28.2 L 32.7 L ABG pO2 ABG HCO3 ABG O2 Saturation ABG Base Excess ABG Hemoglobin 11.8 L 11.5 L ABG Oxyhemoglobin ABG Sodium ABG Potassium ABG Chloride 94.0 L 95.0 L ABG Glucose 207 H 141 H Oxyhemoglobin Carboxyhemoglobin Sodium Potassium Chloride Carbon Dioxide BUN Creatinine Glucose POC Glucose 113 H Lactic Acid Calcium Ferritin AST ALT Lactate Dehydrogenase C-Reactive Protein Total Protein Albumin Triglycerides Arterial Blood Glucose 207 H 141 H Arterial Blood Ionized Calcium 4.5 L Urine Creatinine Urine Total Protein Vancomycin Trough Coronavirus (PCR) SARS-CoV-2 IgG Ab 07/29/20 07/30/20 07/30/20 23:28 04:47 05:28 WBC RBC Hgb Hct MCH MCHC RDW Plt Count Lymph % (Auto) Lymph # (Auto) Seg Neutrophils % Seg Neuts % (Manual) Lymphocytes % (Manual) Eosinophils % (Manual) Nucleated RBC % Seg Neutrophils # Seg Neutrophils # Man Lymphocytes # (Manual) Eosinophils # (Manual) D-Dimer ABG pH POC ABG pCO2 55.1 H POC ABG pO2 43.6 L ABG pO2 ABG HCO3 ABG O2 Saturation ABG Base Excess ABG Hemoglobin 11.9 L ABG Oxyhemoglobin ABG Sodium ABG Potassium ABG Chloride 96.0 L ABG Glucose 150 H Oxyhemoglobin Carboxyhemoglobin Sodium Potassium Chloride Carbon Dioxide BUN Creatinine Glucose POC Glucose 121 H 143 H Lactic Acid Calcium Ferritin AST ALT Lactate Dehydrogenase C-Reactive Protein Total Protein Albumin Triglycerides Arterial Blood Glucose 150 H Arterial Blood Ionized Calcium Urine Creatinine Urine Total Protein Vancomycin Trough Coronavirus (PCR) SARS-CoV-2 IgG Ab 07/30/20 07/30/20 07/30/20 08:18 12:00 14:17 WBC RBC Hgb Hct MCH MCHC RDW Plt Count Lymph % (Auto) Lymph # (Auto) Seg Neutrophils % Seg Neuts % (Manual) Lymphocytes % (Manual) Eosinophils % (Manual) Nucleated RBC % Seg Neutrophils # Seg Neutrophils # Man Lymphocytes # (Manual) Eosinophils # (Manual) D-Dimer ABG pH POC ABG pCO2 63.3 H 64.6 H POC ABG pO2 47.9 L 41.0 L ABG pO2 ABG HCO3 ABG O2 Saturation ABG Base Excess ABG Hemoglobin 10.5 L 10.2 L ABG Oxyhemoglobin 84.9 L ABG Sodium ABG Potassium ABG Chloride 97.0 L ABG Glucose 170 H 175 H Oxyhemoglobin Carboxyhemoglobin Sodium Potassium Chloride Carbon Dioxide BUN Creatinine Glucose POC Glucose 161 H Lactic Acid Calcium Ferritin AST ALT Lactate Dehydrogenase C-Reactive Protein Total Protein Albumin Triglycerides Arterial Blood Glucose 170 H 175 H Arterial Blood Ionized Calcium 4.4 L 4.4 L Urine Creatinine Urine Total Protein Vancomycin Trough Coronavirus (PCR) SARS-CoV-2 IgG Ab 07/30/20 07/30/20 07/30/20 15:15 15:15 15:15 WBC RBC 2.80 L Hgb 9.1 L Hct 26.0 L D MCH MCHC 35 H RDW Plt Count 101 L Lymph % (Auto) Lymph # (Auto) Seg Neutrophils % Seg Neuts % (Manual) 90.0 H Lymphocytes % (Manual) 7.0 L Eosinophils % (Manual) Nucleated RBC % Seg Neutrophils # Seg Neutrophils # Man Lymphocytes # (Manual) 0.4 L Eosinophils # (Manual) D-Dimer ABG pH POC ABG pCO2 POC ABG pO2 ABG pO2 ABG HCO3 ABG O2 Saturation ABG Base Excess ABG Hemoglobin ABG Oxyhemoglobin ABG Sodium ABG Potassium ABG Chloride ABG Glucose Oxyhemoglobin Carboxyhemoglobin Sodium Potassium Chloride 97.1 L Carbon Dioxide 32 H D BUN 39 H Creatinine 1.3 H D Glucose 167 H POC Glucose Lactic Acid Calcium 8.0 L Ferritin AST ALT Lactate Dehydrogenase C-Reactive Protein Total Protein Albumin Triglycerides 837 H Arterial Blood Glucose Arterial Blood Ionized Calcium Urine Creatinine Urine Total Protein Vancomycin Trough Coronavirus (PCR) SARS-CoV-2 IgG Ab 07/30/20 07/30/20 07/30/20 15:15 17:03 17:43 WBC RBC Hgb Hct MCH MCHC RDW Plt Count Lymph % (Auto) Lymph # (Auto) Seg Neutrophils % Seg Neuts % (Manual) Lymphocytes % (Manual) Eosinophils % (Manual) Nucleated RBC % Seg Neutrophils # Seg Neutrophils # Man Lymphocytes # (Manual) Eosinophils # (Manual) D-Dimer ABG pH POC ABG pCO2 POC ABG pO2 ABG pO2 ABG HCO3 ABG O2 Saturation ABG Base Excess ABG Hemoglobin ABG Oxyhemoglobin ABG Sodium ABG Potassium ABG Chloride ABG Glucose Oxyhemoglobin Carboxyhemoglobin Sodium Potassium Chloride Carbon Dioxide BUN Creatinine Glucose POC Glucose 171 H Lactic Acid 2.20 H* 3.60 H* Calcium Ferritin AST ALT Lactate Dehydrogenase C-Reactive Protein Total Protein Albumin Triglycerides Arterial Blood Glucose Arterial Blood Ionized Calcium Urine Creatinine Urine Total Protein Vancomycin Trough Coronavirus (PCR) SARS-CoV-2 IgG Ab 07/30/20 07/30/20 07/31/20 20:13 23:37 04:15 WBC RBC Hgb Hct MCH MCHC RDW Plt Count Lymph % (Auto) Lymph # (Auto) Seg Neutrophils % Seg Neuts % (Manual) Lymphocytes % (Manual) Eosinophils % (Manual) Nucleated RBC % Seg Neutrophils # Seg Neutrophils # Man Lymphocytes # (Manual) Eosinophils # (Manual) D-Dimer ABG pH 7.544 H 7.489 H POC ABG pCO2 POC ABG pO2 44.4 L 50.0 L ABG pO2 ABG HCO3 ABG O2 Saturation ABG Base Excess ABG Hemoglobin 10.4 L ABG Oxyhemoglobin ABG Sodium 135.3 L ABG Potassium ABG Chloride ABG Glucose 201 H 199 H Oxyhemoglobin Carboxyhemoglobin Sodium Potassium Chloride Carbon Dioxide BUN Creatinine Glucose POC Glucose 160 H Lactic Acid Calcium Ferritin AST ALT Lactate Dehydrogenase C-Reactive Protein Total Protein Albumin Triglycerides Arterial Blood Glucose 201 H 199 H Arterial Blood Ionized Calcium 4.2 L 4.4 L Urine Creatinine Urine Total Protein Vancomycin Trough Coronavirus (PCR) SARS-CoV-2 IgG Ab 07/31/20 07/31/20 07/31/20 05:16 05:16 05:28 WBC RBC 3.03 L Hgb 9.2 L Hct 27.6 L MCH MCHC RDW Plt Count 118 L Lymph % (Auto) 6.3 L Lymph # (Auto) 0.5 L Seg Neutrophils % Seg Neuts % (Manual) Lymphocytes % (Manual) Eosinophils % (Manual) Nucleated RBC % Seg Neutrophils # Seg Neutrophils # Man Lymphocytes # (Manual) Eosinophils # (Manual) D-Dimer ABG pH POC ABG pCO2 POC ABG pO2 ABG pO2 ABG HCO3 ABG O2 Saturation ABG Base Excess ABG Hemoglobin ABG Oxyhemoglobin ABG Sodium ABG Potassium ABG Chloride ABG Glucose Oxyhemoglobin Carboxyhemoglobin Sodium Potassium Chloride Carbon Dioxide BUN 57 H Creatinine 1.7 H Glucose 208 H POC Glucose 182 H Lactic Acid Calcium 8.3 L Ferritin AST 613 H ALT 760 H Lactate Dehydrogenase C-Reactive Protein Total Protein 5.6 L Albumin 2.2 L Triglycerides Arterial Blood Glucose Arterial Blood Ionized Calcium Urine Creatinine Urine Total Protein Vancomycin Trough Coronavirus (PCR) SARS-CoV-2 IgG Ab 07/31/20 07/31/20 07/31/20 11:02 14:14 14:14 WBC RBC Hgb Hct MCH MCHC RDW Plt Count Lymph % (Auto) Lymph # (Auto) Seg Neutrophils % Seg Neuts % (Manual) Lymphocytes % (Manual) Eosinophils % (Manual) Nucleated RBC % Seg Neutrophils # Seg Neutrophils # Man Lymphocytes # (Manual) Eosinophils # (Manual) D-Dimer 2522.40 H ABG pH POC ABG pCO2 POC ABG pO2 ABG pO2 ABG HCO3 ABG O2 Saturation ABG Base Excess ABG Hemoglobin ABG Oxyhemoglobin ABG Sodium ABG Potassium ABG Chloride ABG Glucose Oxyhemoglobin Carboxyhemoglobin Sodium Potassium Chloride Carbon Dioxide BUN Creatinine Glucose POC Glucose 200 H Lactic Acid Calcium Ferritin 964.8 H AST ALT Lactate Dehydrogenase C-Reactive Protein Total Protein Albumin Triglycerides Arterial Blood Glucose Arterial Blood Ionized Calcium Urine Creatinine Urine Total Protein Vancomycin Trough Coronavirus (PCR) SARS-CoV-2 IgG Ab 07/31/20 07/31/20 07/31/20 14:14 14:14 16:00 WBC RBC Hgb Hct MCH MCHC RDW Plt Count Lymph % (Auto) Lymph # (Auto) Seg Neutrophils % Seg Neuts % (Manual) Lymphocytes % (Manual) Eosinophils % (Manual) Nucleated RBC % Seg Neutrophils # Seg Neutrophils # Man Lymphocytes # (Manual) Eosinophils # (Manual) D-Dimer ABG pH POC ABG pCO2 POC ABG pO2 ABG pO2 ABG HCO3 ABG O2 Saturation ABG Base Excess ABG Hemoglobin ABG Oxyhemoglobin ABG Sodium ABG Potassium ABG Chloride ABG Glucose Oxyhemoglobin Carboxyhemoglobin Sodium Potassium Chloride Carbon Dioxide BUN Creatinine Glucose POC Glucose Lactic Acid Calcium Ferritin AST ALT Lactate Dehydrogenase 585 H C-Reactive Protein 49.00 H Total Protein Albumin Triglycerides Arterial Blood Glucose Arterial Blood Ionized Calcium Urine Creatinine 89.2 H Urine Total Protein 108 H Vancomycin Trough 28.2 H Coronavirus (PCR) SARS-CoV-2 IgG Ab 07/31/20 07/31/20 08/01/20 17:22 21:26 00:07 WBC RBC Hgb Hct MCH MCHC RDW Plt Count Lymph % (Auto) Lymph # (Auto) Seg Neutrophils % Seg Neuts % (Manual) Lymphocytes % (Manual) Eosinophils % (Manual) Nucleated RBC % Seg Neutrophils # Seg Neutrophils # Man Lymphocytes # (Manual) Eosinophils # (Manual) D-Dimer ABG pH POC ABG pCO2 POC ABG pO2 156.0 H ABG pO2 ABG HCO3 ABG O2 Saturation ABG Base Excess ABG Hemoglobin 9.6 L ABG Oxyhemoglobin 98.4 H ABG Sodium 135.9 L ABG Potassium ABG Chloride ABG Glucose 290 H Oxyhemoglobin Carboxyhemoglobin 0.4 L Sodium Potassium Chloride Carbon Dioxide BUN Creatinine Glucose POC Glucose 229 H 255 H Lactic Acid Calcium Ferritin AST ALT Lactate Dehydrogenase C-Reactive Protein Total Protein Albumin Triglycerides Arterial Blood Glucose 290 H Arterial Blood Ionized Calcium 4.5 L Urine Creatinine Urine Total Protein Vancomycin Trough Coronavirus (PCR) SARS-CoV-2 IgG Ab 08/01/20 08/01/20 08/01/20 04:46 05:30 05:30 WBC RBC 2.27 L Hgb 7.6 L Hct 20.9 L D MCH 34 H MCHC 37 H RDW Plt Count 85 L Lymph % (Auto) Lymph # (Auto) Seg Neutrophils % Seg Neuts % (Manual) 87.0 H Lymphocytes % (Manual) 2.0 L Eosinophils % (Manual) Nucleated RBC % 1.0 H Seg Neutrophils # Seg Neutrophils # Man Lymphocytes # (Manual) 0.1 L Eosinophils # (Manual) D-Dimer ABG pH 7.462 H POC ABG pCO2 POC ABG pO2 70.2 L ABG pO2 ABG HCO3 ABG O2 Saturation ABG Base Excess ABG Hemoglobin 8.7 L ABG Oxyhemoglobin ABG Sodium 135.7 L ABG Potassium 3.3 L ABG Chloride ABG Glucose 275 H Oxyhemoglobin Carboxyhemoglobin Sodium 132 L D Potassium 2.8 L* D Chloride Carbon Dioxide BUN 47 H Creatinine Glucose 217 H POC Glucose Lactic Acid Calcium 6.6 L D Ferritin AST 117 H ALT 408 H Lactate Dehydrogenase C-Reactive Protein Total Protein 4.3 L D Albumin 0.6 L Triglycerides 2335 H Arterial Blood Glucose 275 H Arterial Blood Ionized Calcium 4.5 L Urine Creatinine Urine Total Protein Vancomycin Trough Coronavirus (PCR) SARS-CoV-2 IgG Ab 08/01/20 08/01/20 08/01/20 05:34 09:33 11:50 WBC RBC Hgb Hct MCH MCHC RDW Plt Count Lymph % (Auto) Lymph # (Auto) Seg Neutrophils % Seg Neuts % (Manual) Lymphocytes % (Manual) Eosinophils % (Manual) Nucleated RBC % Seg Neutrophils # Seg Neutrophils # Man Lymphocytes # (Manual) Eosinophils # (Manual) D-Dimer ABG pH POC ABG pCO2 POC ABG pO2 ABG pO2 ABG HCO3 ABG O2 Saturation ABG Base Excess ABG Hemoglobin ABG Oxyhemoglobin ABG Sodium ABG Potassium ABG Chloride ABG Glucose Oxyhemoglobin Carboxyhemoglobin Sodium Potassium Chloride Carbon Dioxide BUN 57 H Creatinine Glucose 250 H POC Glucose 246 H 239 H Lactic Acid Calcium 8.2 L D Ferritin AST ALT Lactate Dehydrogenase C-Reactive Protein Total Protein Albumin Triglycerides 759 H Arterial Blood Glucose Arterial Blood Ionized Calcium Urine Creatinine Urine Total Protein Vancomycin Trough Coronavirus (PCR) SARS-CoV-2 IgG Ab 08/01/20 08/01/20 08/02/20 17:14 23:21 04:22 WBC RBC Hgb Hct MCH MCHC RDW Plt Count Lymph % (Auto) Lymph # (Auto) Seg Neutrophils % Seg Neuts % (Manual) Lymphocytes % (Manual) Eosinophils % (Manual) Nucleated RBC % Seg Neutrophils # Seg Neutrophils # Man Lymphocytes # (Manual) Eosinophils # (Manual) D-Dimer ABG pH 7.268 L POC ABG pCO2 56.6 H POC ABG pO2 ABG pO2 ABG HCO3 ABG O2 Saturation ABG Base Excess ABG Hemoglobin 8.4 L ABG Oxyhemoglobin ABG Sodium ABG Potassium 4.9 H ABG Chloride ABG Glucose 261 H Oxyhemoglobin Carboxyhemoglobin Sodium Potassium Chloride Carbon Dioxide BUN Creatinine Glucose POC Glucose 219 H 242 H Lactic Acid Calcium Ferritin AST ALT Lactate Dehydrogenase C-Reactive Protein Total Protein Albumin Triglycerides Arterial Blood Glucose 261 H Arterial Blood Ionized Calcium Urine Creatinine Urine Total Protein Vancomycin Trough Coronavirus (PCR) SARS-CoV-2 IgG Ab 08/02/20 08/02/20 08/02/20 05:05 06:37 06:37 WBC RBC 3.40 L Hgb 10.0 L Hct MCH MCHC RDW 16.2 H Plt Count 87 L Lymph % (Auto) Lymph # (Auto) Seg Neutrophils % Seg Neuts % (Manual) 82.0 H Lymphocytes % (Manual) 3.0 L Eosinophils % (Manual) Nucleated RBC % 2.0 H Seg Neutrophils # Seg Neutrophils # Man 9.0 H Lymphocytes # (Manual) 0.3 L Eosinophils # (Manual) D-Dimer ABG pH POC ABG pCO2 POC ABG pO2 ABG pO2 ABG HCO3 ABG O2 Saturation ABG Base Excess ABG Hemoglobin ABG Oxyhemoglobin ABG Sodium ABG Potassium ABG Chloride ABG Glucose Oxyhemoglobin Carboxyhemoglobin Sodium Potassium 5.3 H D Chloride Carbon Dioxide BUN 53 H Creatinine Glucose 267 H POC Glucose 254 H Lactic Acid Calcium 8.1 L Ferritin AST 43 H ALT 334 H Lactate Dehydrogenase C-Reactive Protein Total Protein 5.4 L D Albumin 1.9 L Triglycerides Arterial Blood Glucose Arterial Blood Ionized Calcium Urine Creatinine Urine Total Protein Vancomycin Trough Coronavirus (PCR) SARS-CoV-2 IgG Ab 08/02/20 08/02/20 08/02/20 06:37 11:34 17:04 WBC RBC Hgb Hct MCH MCHC RDW Plt Count Lymph % (Auto) Lymph # (Auto) Seg Neutrophils % Seg Neuts % (Manual) Lymphocytes % (Manual) Eosinophils % (Manual) Nucleated RBC % Seg Neutrophils # Seg Neutrophils # Man Lymphocytes # (Manual) Eosinophils # (Manual) D-Dimer ABG pH POC ABG pCO2 POC ABG pO2 ABG pO2 ABG HCO3 ABG O2 Saturation ABG Base Excess ABG Hemoglobin ABG Oxyhemoglobin ABG Sodium ABG Potassium ABG Chloride ABG Glucose Oxyhemoglobin Carboxyhemoglobin Sodium Potassium Chloride Carbon Dioxide BUN Creatinine Glucose POC Glucose 279 H 256 H Lactic Acid Calcium Ferritin AST ALT Lactate Dehydrogenase C-Reactive Protein Total Protein Albumin Triglycerides 717 H Arterial Blood Glucose Arterial Blood Ionized Calcium Urine Creatinine Urine Total Protein Vancomycin Trough Coronavirus (PCR) SARS-CoV-2 IgG Ab 08/02/20 08/03/20 08/03/20 23:23 01:25 04:49 WBC 13.2 H RBC 2.83 L Hgb 8.4 L Hct 26.3 L MCH MCHC RDW 16.4 H Plt Count Lymph % (Auto) Lymph # (Auto) Seg Neutrophils % Seg Neuts % (Manual) Lymphocytes % (Manual) 2.0 L Eosinophils % (Manual) Nucleated RBC % 1.0 H Seg Neutrophils # Seg Neutrophils # Man 7.8 H Lymphocytes # (Manual) 0.3 L Eosinophils # (Manual) D-Dimer ABG pH 7.302 L POC ABG pCO2 56.0 H POC ABG pO2 39.6 L ABG pO2 ABG HCO3 ABG O2 Saturation ABG Base Excess ABG Hemoglobin 9.1 L ABG Oxyhemoglobin ABG Sodium ABG Potassium 4.8 H ABG Chloride 108.0 H ABG Glucose 275 H Oxyhemoglobin Carboxyhemoglobin Sodium Potassium Chloride Carbon Dioxide BUN Creatinine Glucose POC Glucose 214 H Lactic Acid Calcium Ferritin AST ALT Lactate Dehydrogenase C-Reactive Protein Total Protein Albumin Triglycerides Arterial Blood Glucose 275 H Arterial Blood Ionized Calcium Urine Creatinine Urine Total Protein Vancomycin Trough Coronavirus (PCR) SARS-CoV-2 IgG Ab 08/03/20 08/03/20 08/03/20 04:49 04:49 05:11 WBC RBC Hgb Hct MCH MCHC RDW Plt Count Lymph % (Auto) Lymph # (Auto) Seg Neutrophils % Seg Neuts % (Manual) Lymphocytes % (Manual) Eosinophils % (Manual) Nucleated RBC % Seg Neutrophils # Seg Neutrophils # Man Lymphocytes # (Manual) Eosinophils # (Manual) D-Dimer ABG pH POC ABG pCO2 POC ABG pO2 ABG pO2 ABG HCO3 ABG O2 Saturation ABG Base Excess ABG Hemoglobin ABG Oxyhemoglobin ABG Sodium ABG Potassium ABG Chloride ABG Glucose Oxyhemoglobin Carboxyhemoglobin Sodium Potassium Chloride Carbon Dioxide BUN 39 H Creatinine Glucose 263 H POC Glucose 230 H Lactic Acid Calcium 8.1 L Ferritin AST ALT 242 H Lactate Dehydrogenase C-Reactive Protein Total Protein 5.4 L Albumin 2.2 L Triglycerides 500 H Arterial Blood Glucose Arterial Blood Ionized Calcium Urine Creatinine Urine Total Protein Vancomycin Trough Coronavirus (PCR) SARS-CoV-2 IgG Ab 08/03/20 08/03/20 08/03/20 11:55 17:07 23:25 WBC RBC Hgb Hct MCH MCHC RDW Plt Count Lymph % (Auto) Lymph # (Auto) Seg Neutrophils % Seg Neuts % (Manual) Lymphocytes % (Manual) Eosinophils % (Manual) Nucleated RBC % Seg Neutrophils # Seg Neutrophils # Man Lymphocytes # (Manual) Eosinophils # (Manual) D-Dimer ABG pH POC ABG pCO2 POC ABG pO2 ABG pO2 ABG HCO3 ABG O2 Saturation ABG Base Excess ABG Hemoglobin ABG Oxyhemoglobin ABG Sodium ABG Potassium ABG Chloride ABG Glucose Oxyhemoglobin Carboxyhemoglobin Sodium Potassium Chloride Carbon Dioxide BUN Creatinine Glucose POC Glucose 238 H 205 H 211 H Lactic Acid Calcium Ferritin AST ALT Lactate Dehydrogenase C-Reactive Protein Total Protein Albumin Triglycerides Arterial Blood Glucose Arterial Blood Ionized Calcium Urine Creatinine Urine Total Protein Vancomycin Trough Coronavirus (PCR) SARS-CoV-2 IgG Ab 08/04/20 08/04/20 08/04/20 03:16 05:31 12:07 WBC RBC Hgb Hct MCH MCHC RDW Plt Count Lymph % (Auto) Lymph # (Auto) Seg Neutrophils % Seg Neuts % (Manual) Lymphocytes % (Manual) Eosinophils % (Manual) Nucleated RBC % Seg Neutrophils # Seg Neutrophils # Man Lymphocytes # (Manual) Eosinophils # (Manual) D-Dimer ABG pH 7.154 L POC ABG pCO2 80.7 H POC ABG pO2 ABG pO2 ABG HCO3 ABG O2 Saturation ABG Base Excess ABG Hemoglobin 8.5 L ABG Oxyhemoglobin ABG Sodium ABG Potassium 5.1 H ABG Chloride 109.0 H ABG Glucose 226 H Oxyhemoglobin Carboxyhemoglobin Sodium Potassium Chloride Carbon Dioxide BUN Creatinine Glucose POC Glucose 201 H 213 H Lactic Acid Calcium Ferritin AST ALT Lactate Dehydrogenase C-Reactive Protein Total Protein Albumin Triglycerides Arterial Blood Glucose 226 H Arterial Blood Ionized Calcium Urine Creatinine Urine Total Protein Vancomycin Trough Coronavirus (PCR) SARS-CoV-2 IgG Ab Chest x-ray: image reviewed (resolution of pneumothoraces and improving SQ emphysema; chest tubes in good position) Allied health notes reviewed: nursing
--- NOTE | 2020-08-04 13:58 | Progress Note ---
Assessment and Plan Assessment and plan: -Severe COVID-19 PNA -On vent. 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 Patient states the symptoms started right after she was discharged from [facility] on 07/05. She has associated wheezing, fever, cough and she has been using her inhalers with no significant effect. She also has associated diarrhea. Of note, she was hospitalized here in [facility] on 06/28 for asthma exacerbation and had a negative Covid test during the admission. She was treated and discharged. She presented to [facility] for further evaluation after discharge from here and over there, she was found to have positive COVID-19 test and she was placed on steroids and subsequently discharged on Eliquis prophylaxis for DVT. She states that she did not receive remdesivir during the admission. She was discharged from [facility] on 07/05. She went home and felt worse. She said that she passed out about 2 times. Due to persistent symptoms, she called EMS who brought her to [facility] for further evaluation. Daily course: 07/07. Patient seen and examined at bedside this morning. Patient is wheezing and slightly short of breath. Change steroids to Solu-Medrol 60 every 6. Added formoterol and budesonide. ID evaluation pending. Started patient on remdesiv ir as she is short of breath. 07/07: Placed on BIPAP this AM. Will need pulm evaluation. Solumedrol 60mg q6. STAT blood gas ordered. She will be transferred to [facility]. 07/08: Patient took oxygen off and attempts to go to the bathroom and subsequently became hypoxemic with sats down into the low 80s. Patient became weak short of breath. After that time patient had persistent coughing and cannot maintain sats until nonrebreather was placed. Patient is transferred to the ICU unit and monitored for respiratory failure possibly requiring intubation. 07/09: ID recommended for convalescent plasma, ordered. Patient intubated overnight. Continue to monitor clinically, scheduled lab, follow inflammatory markers 07/10: Wait for convalescent plasma transfusion, wean off from ventilator as tolerated 07/11: Called patient's daughter and updated. Continue to wean off vent as tolerated, continue tube feeding, monitor vital sign CBC BMP daily. 07/12: remains intubated and sedated. follow inflammatory markers - wean off vent as tolerated 07/13: wean off vent as tolerated, cxr in the am. reviewed vitals 07/14: remains intubated, has not received convalescent plasma yet. Reviewed vitals, tolerating tube feeding. Wean off vent per critical care as tolerated. 07/15: cont to provide supportive care, wean off vent as tolerated - difficult to wean off. 07/16: CXR findings improving, cont to wean off vent 07/17: Follow inflammatory markers, monitor off antibiotics. Wean off vent per pulmonary as tolerated 07/18: Wean off vent per pulmonary as tolerated,Follow inflammatory markers, monitor off antibiotics. 07/19: Wean off vent per pulmonary as tolerated,Follow inflammatory markers, monitor off antibiotics. SBT trial 07/20: Wean off vent as tolerated, continue supportive care, follow inflammatory markers 07/21: continue supportive care, follow inflammatory markers, wean off vent as tolerated 07/22: Continue to wean off from ventilator as tolerated per pulmonary recommendation, follow inflammatory markers. Repeat CBC BMP in the morning. We will repeat Covid test tomorrow to see if patient cleared the infection. 07/23. Continue to wean off from ventilator as tolerated per pulmonary recommendation, follow inflammatory markers. Currently AC mode, rate 16, tidal volume 450 with FiO2 75%vand PEEP 14 07/24/2020. Continue ventilatory support with AC mode, rate 16, tidal volume 450, FiO2 100% and PEEP of 16. Continue Brovana and Pulmicort. Continue IV steroids 40 mg IV every 8 hours. Anticoagulation with Lovenox 30 mg twice daily. Patient currently sedated with Versed and fentanyl. 07/25/2020. Continue ventilatory support with AC mode, rate 16, tidal volume 450, FiO2 75% and PEEP of 16. Continue Brovana and Pulmicort. Continue IV steroids 40 mg IV every 8 hours. Anticoagulation with Lovenox 30 mg twice daily. Patient currently sedated with Versed and fentanyl. Continue to wean per pulmonary recommendations. 07/26/2020. Continue ventilatory support with AC mode, rate 16, tidal volume 450, FiO2 85% and PEEP of 16. Continue Brovana and Pulmicort. Continue IV steroids 40 mg IV every 8 hours. Anticoagulation with Lovenox 30 mg twice daily. Patient currently sedated with Versed and fentanyl. Continue to wean per protocol. 07/27/2020. Continue ventilatory support with AC mode, rate 16, tidal volume 450, FiO2 100% and PEEP of 16. Patient with increased oxygen requirements the past couple of days. Continue Brovana and Pulmicort. Continue IV steroids 40 mg IV every 8 hours. Anticoagulation with Lovenox 30 mg twice daily. Patient currently sedated with Versed and fentanyl. Dose of Lasix given by pulmonary yesterday to achieve negative fluid balance. Follow-up serial chest x-ray 07/28/2020. Continue ventilatory support with AC mode, rate 16, tidal volume 450, FiO2 100% and PEEP of 16. Wean FiO2 per protocol. Continue Brovana and Pulmicort. Continue IV steroids 40 mg IV every 8 hours. Anticoagulation with Lovenox 30 mg twice daily. Patient currently sedated with Versed and fentanyl. 07/29/2020. Continue ventilatory support with AC mode, rate 16, tidal volume 450, FiO2 100% and PEEP of 16. Wean FiO2 per protocol. Continue Brovana and Pulmicort. Continue IV steroids 40 mg IV every 8 hours. Anticoagulation with Lovenox 30 mg twice daily. Wean sedation as tolerated. 07/30. Continue ventilatory support with AC mode, rate 16, tidal volume 450, FiO2 100% and PEEP of 16. Wean FiO2 per protocol. Continue Brovana and Pulmicort. Continue IV steroids 40 mg IV every 8 hours. Anticoagulation with Lovenox 30 mg twice daily. Wean sedation as tolerated. 07/31. Still ventilated. On sedatives. Renal function worse today. nephrology has been consulted. Started patient on IV hydration. BC - GN rods and staph aureus. She is on vancomycin. 08/01. Still ventilated. On sedatives. Renal function worse today. nephrology has been consulted. Started patient on IV hydration. BC - GN rods and staph aureus. She is on vancomycin. 08/02. Chest xray shows worsening pneumothorax. Chest tube in place. On vent and sedated 08/03. Continue ventilatory support with AC mode, rate 30, tidal volume 400, FiO2 100% and PEEP of 16. Wean FiO2 per protocol. Continue Brovana and Pulmicort. Anticoagulation with Lovenox 30 mg twice daily. Wean sedation as tolerated. 08/04. Left sided chest tube placed by surgery. Oxygenation stable. The high probability of a clinically significant, sudden or life threatening deterioration of the [[employer], respiratory, EXTERNAL RELATIONS DIRECTOR] system(s) required my full and direct attention, intervention and personal management. The aggregate critical care time was [32] minutes. This time is in addition to time spent performing reported procedures but includes the following: [x] Data Review and interpretation [x] Patient assessment and monitoring of vital signs [x] Documentation [x] Medication orders and management - Patient Problems (1) COVID-19 Current Visit: Yes Status: Acute (2) Acute respiratory failure Current Visit: No Status: Acute Qualifiers: Respiratory failure complication: unspecified whether with hypoxia or hypercapnia Qualified Code(s): J96.00 - Acute respiratory failure, unspecified whether with hypoxia or hypercapnia (3) GERD (gastroesophageal reflux disease) Current Visit: No Status: Chronic Qualifiers: Esophagitis presence: without esophagitis Qualified Code(s): K21.9 - Gastro-esophageal reflux disease without esophagitis (4) SLE (systemic lupus erythematosus related syndrome) Current Visit: No Status: Chronic (5) DVT prophylaxis Current Visit: No Status: Acute (6) Full code status Current Visit: No Status: Acute History Interval history: Nonresponsive On sedatives Intubated Hospitalist Physical - Physical exam Narrative exam: VITAL SIGNS: Reviewed. GENERAL: Sedated and intubated HEAD: No signs of head trauma. EYES: Pupils are equal. MOUTH: Intubated NECK: No adenopathy, no JVD. CHEST: Rhonchi bilaterally, subcutaneous emphysema anterior chest CARDIAC: Normal S1 and S2, without murmurs, gallops, or rubs. VASCULAR: trace edema ABDOMEN: Soft, non tender and non distended. Bowel Sounds normal. NEUROLOGIC EXAM: Sedated SKIN: No obvious lesions - Constitutional Vitals: Temp Pulse Resp BP Pulse Ox 98 F 57 L 30 H 153/82 100 08/04/20 08:00 08/04/20 12:05 08/04/20 11:50 08/04/20 12:05 08/04/20 12:05 Results - Labs CBC & Chem 7: 08/03/20 04:49 08/03/20 04:49 Labs: Laboratory Last Values WBC 13.2 K/mm3 (4.5-11.0) H 08/03/20 04:49 RBC 2.83 M/mm3 (3.65-5.03) L 08/03/20 04:49 Hgb 8.4 gm/dl (10.1-14.3) L 08/03/20 04:49 Hct 26.3 % (30.3-42.9) L 08/03/20 04:49 MCV 93 fl (79-97) 08/03/20 04:49 MCH 30 pg (28-32) 08/03/20 04:49 MCHC 32 % (30-34) 08/03/20 04:49 RDW 16.4 % (13.2-15.2) H 08/03/20 04:49 Plt Count 149 K/mm3 (140-440) 08/03/20 04:49 Lymph % (Auto) Outside Physical Damage Appraiser 08/02/20 06:37 [place] % (Auto) Outside Physical Damage Appraiser 08/02/20 06:37 Eos % (Auto) Outside Physical Damage Appraiser 08/02/20 06:37 Baso % (Auto) Outside Physical Damage Appraiser 08/02/20 06:37 Lymph # (Auto) Outside Physical Damage Appraiser 08/02/20 06:37 [place] # (Auto) Outside Physical Damage Appraiser 08/02/20 06:37 Eos # (Auto) Outside Physical Damage Appraiser 08/02/20 06:37 Baso # (Auto) Outside Physical Damage Appraiser 08/02/20 06:37 Add Manual Diff Complete 08/03/20 04:49 Total Counted 100 08/03/20 04:49 Seg Neutrophils % Outside Physical Damage Appraiser 08/03/20 04:49 Seg Neuts % (Manual) 59.0 % (40.0-70.0) 08/03/20 04:49 Band Neutrophils % 3.0 % 08/03/20 04:49 Lymphocytes % (Manual) 2.0 % (13.4-35.0) L 08/03/20 04:49 Reactive Lymphs % (Man) 0 % 08/03/20 04:49 Monocytes % (Manual) 1.0 % (0.0-7.3) 08/03/20 04:49 Eosinophils % (Manual) 2.0 % (0.0-4.3) 08/03/20 04:49 Basophils % (Manual) 0 % (0.0-1.8) 08/03/20 04:49 Metamyelocytes % 9.0 % 08/03/20 04:49 Myelocytes % 24.0 % 08/03/20 04:49 Promyelocytes % 0 % 08/03/20 04:49 Blast Cells % 0 % 08/03/20 04:49 Nucleated RBC % 1.0 % (0.0-0.9) H 08/03/20 04:49 Seg Neutrophils # Outside Physical Damage Appraiser 08/02/20 06:37 Seg Neutrophils # Man 7.8 K/mm3 (1.8-7.7) H 08/03/20 04:49 Band Neutrophils # 0.4 K/mm3 08/03/20 04:49 Lymphocytes # (Manual) 0.3 K/mm3 (1.2-5.4) L 08/03/20 04:49 Abs React Lymphs (Man) 0.0 K/mm3 08/03/20 04:49 Monocytes # (Manual) 0.1 K/mm3 (0.0-0.8) 08/03/20 04:49 Eosinophils # (Manual) 0.3 K/mm3 (0.0-0.4) 08/03/20 04:49 Basophils # (Manual) 0.0 K/mm3 (0.0-0.1) 08/03/20 04:49 Metamyelocytes # 1.2 K/mm3 08/03/20 04:49 Myelocytes # 3.2 K/mm3 08/03/20 04:49 Promyelocytes # 0.0 K/mm3 08/03/20 04:49 Blast Cells # 0.0 K/mm3 08/03/20 04:49 WBC Morphology Not Reportable 08/02/20 06:37 Hypersegmented Neuts Not Reportable 08/03/20 04:49 Hyposegmented Neuts Not Reportable 08/03/20 04:49 Hypogranular Neuts Not Reportable 08/03/20 04:49 Smudge Cells Not Reportable 08/03/20 04:49 Toxic Granulation Not Reportable 08/03/20 04:49 Toxic Vacuolation Not Reportable 08/03/20 04:49 Dohle Bodies Not Reportable 08/03/20 04:49 Pelger-Huet Anomaly Not Reportable 08/03/20 04:49 Savanna Rods Not Reportable 08/03/20 04:49 Platelet Estimate Consistent w auto 08/03/20 04:49 Clumped Platelets Not Reportable 08/03/20 04:49 Plt Clumps, EDTA Not Reportable 08/03/20 04:49 Large Platelets Few 08/03/20 04:49 Giant Platelets Not Reportable 08/03/20 04:49 Platelet Satelliting Not Reportable 08/03/20 04:49 Plt Morphology Comment Not Reportable 08/03/20 04:49 RBC Morphology Not Reportable 08/03/20 04:49 Dimorphic RBCs Not Reportable 08/03/20 04:49 Polychromasia Few 08/03/20 04:49 Hypochromasia Not Reportable 08/03/20 04:49 Poikilocytosis 1+ 08/03/20 04:49 Anisocytosis 1+ 08/03/20 04:49 Microcytosis Not Reportable 08/03/20 04:49 Macrocytosis Not Reportable 08/03/20 04:49 Spherocytes Not Reportable 08/03/20 04:49 Pappenheimer Bodies Not Reportable 08/03/20 04:49 Sickle Cells Not Reportable 08/03/20 04:49 Target Cells Not Reportable 08/03/20 04:49 Tear Drop Cells Few 08/03/20 04:49 Ovalocytes Not Reportable 08/03/20 04:49 Helmet Cells Not Reportable 08/03/20 04:49 Raza-Gail Bodies Not Reportable 08/03/20 04:49 [place] Rings Not Reportable 08/03/20 04:49 Kristan Cells Not Reportable 08/03/20 04:49 Bite Cells Not Reportable 08/03/20 04:49 Crenated Cell Not Reportable 08/03/20 04:49 Elliptocytes Few 08/03/20 04:49 Acanthocytes (Spur) Not Reportable 08/03/20 04:49 Rouleaux Not Reportable 08/03/20 04:49 Hemoglobin C Crystals Not Reportable 08/03/20 04:49 Schistocytes Not Reportable 08/03/20 04:49 Malaria parasites Not Reportable 08/03/20 04:49 Junaid Bodies Not Reportable 08/03/20 04:49 Hem Pathologist Commnt Sent to pathology 08/03/20 04:49 D-Dimer 2522.40 ng/mlDDU (0-234) H 07/31/20 14:14 ABG pH 7.154 (7.320-7.450) L 08/04/20 03:16 POC ABG pCO2 80.7 mmHg (32.0-48.0) H 08/04/20 03:16 ABG pCO2 81.7 mm Hg 07/28/20 04:15 POC ABG pO2 84.6 mmHg (83-108) 08/04/20 03:16 ABG pO2 130.3 mm Hg (80.0-90.0) H 07/28/20 04:15 POC ABG HCO3 27.7 08/04/20 03:16 ABG HCO3 40.9 mmol/L (20.0-26.0) H 07/28/20 04:15 ABG O2 Saturation 98.1 % (95.0-99.0) 07/28/20 04:15 ABG O2 Content 8.2 (0.0-44) 07/28/20 04:15 POC ABG Base Excess -1.7 08/04/20 03:16 ABG Base Excess 13.5 mmol/L (-2.0-3.0) H 07/28/20 04:15 ABG Hemoglobin 8.5 (12.0-17.5) L 08/04/20 03:16 ABG Oxyhemoglobin 98.4 (94-98) H 07/31/20 21:26 ABG Carboxyhemoglobin 1.7 % (0.0-5.0) 07/28/20 04:15 ABG Methemoglobin 0.3 (0.0-1.5) 07/31/20 21:26 ABG Sodium 140.7 mmol/L (136.0-145.0) 08/04/20 03:16 ABG Potassium 5.1 mmol/L (3.40-4.50) H 08/04/20 03:16 ABG Chloride 109.0 mmol/L (98-107) H 08/04/20 03:16 ABG Glucose 226 mg/dL (65-95) H 08/04/20 03:16 Oxyhemoglobin 95.8 % (95.0-99.0) 07/28/20 04:15 Carboxyhemoglobin 0.4 (0.5-1.5) L 07/31/20 21:26 FiO2 100.0 08/04/20 03:16 Sodium 139 mmol/L (137-145) 08/03/20 04:49 Potassium 4.8 mmol/L (3.6-5.0) 08/03/20 04:49 Chloride 106.1 mmol/L (98-107) 08/03/20 04:49 Carbon Dioxide 29 mmol/L (22-30) 08/03/20 04:49 Anion Gap 9 mmol/L 08/03/20 04:49 BUN 39 mg/dL (7-17) H 08/03/20 04:49 Creatinine 0.7 mg/dL (0.6-1.2) 08/03/20 04:49 Estimated GFR > 60 ml/min 08/03/20 04:49 BUN/Creatinine Ratio 56 % 08/03/20 04:49 Glucose 263 mg/dL (65-100) H 08/03/20 04:49 POC Glucose 213 mg/dL (70-105) H 08/04/20 12:07 Lactic Acid 1.80 mmol/L (0.7-2.0) 07/31/20 14:14 Calcium 8.1 mg/dL (8.4-10.2) L 08/03/20 04:49 Phosphorus 3.20 mg/dL (2.5-4.5) 07/08/20 16:13 Magnesium 2.20 mg/dL (1.7-2.3) 07/08/20 16:13 Ferritin 964.8 ng/mL (10.0-200.0) H 07/31/20 14:14 Total Bilirubin 0.30 mg/dL (0.1-1.2) 08/03/20 04:49 AST 33 units/L (5-40) 08/03/20 04:49 ALT 242 units/L (7-56) H 08/03/20 04:49 Alkaline Phosphatase 97 units/L (35-129) 08/03/20 04:49 Lactate Dehydrogenase 585 units/L (91-180) H 07/31/20 14:14 C-Reactive Protein 49.00 mg/dL (0.00-1.30) H 07/31/20 14:14 Total Protein 5.4 g/dL (6.3-8.2) L 08/03/20 04:49 Albumin 2.2 g/dL (3.9-5) L 08/03/20 04:49 Albumin/Globulin Ratio 0.7 % 08/03/20 04:49 Triglycerides 500 mg/dL (2-149) H 08/03/20 04:49 Procalcitonin 119.84 ng/mL (<0.15) 07/30/20 17:43 Arterial Blood Glucose 226 mg/dL (65-95) H 08/04/20 03:16 Arterial Blood Ionized Calcium 4.9 mg/dL (4.6-5.3) 08/04/20 03:16 Urine Color Yellow (Yellow) 07/11/20 09:30 Urine Turbidity Clear (Clear) 07/11/20 09:30 Urine pH 5.0 (5.0-7.0) 07/11/20 09:30 Ur Specific [place] 1.028 (1.003-1.030) 07/11/20 09:30 Urine Protein <15 mg/dl mg/dL (Negative) 07/11/20 09:30 Urine Glucose (UA) Neg mg/dL (Negative) 07/11/20 09:30 Urine Ketones Neg mg/dL (Negative) 07/11/20 09:30 Urine Blood Neg (Negative) 07/11/20 09:30 Urine Nitrite Neg (Negative) 07/11/20 09:30 Urine Bilirubin Neg (Negative) 07/11/20 09:30 Urine Urobilinogen 2.0 mg/dL (<2.0) 07/11/20 09:30 Ur Leukocyte Esterase Neg (Negative) 07/11/20 09:30 Urine WBC (Auto) 1.0 /HPF (0.0-6.0) 07/11/20 09:30 Urine RBC (Auto) 1.0 /HPF (0.0-6.0) 07/11/20 09:30 U Epithel Cells (Auto) 1.0 /HPF (0-13.0) 07/11/20 09:30 Urine Mucus Few /HPF 07/11/20 09:30 Urine Creatinine 89.2 mg/dL (0.1-20.0) H 07/31/20 16:00 Urine Sodium 26 mmol/L 07/31/20 16:00 Urine Total Protein 108 mg/dL (5-11.8) H 07/31/20 16:00 Vancomycin Trough 28.2 ug/mL (5.0-20.0) H 07/31/20 14:14 Random Vancomycin 7.9 ug/mL (0-40.0) 08/02/20 06:37 Coronavirus (PCR) Positive (Negative) A 07/23/20 Unknown SARS-CoV-2 IgG Ab Reactive (NonReactive) A 07/15/20 14:30 Blood Type O POSITIVE 07/09/20 15:30 Antibody Screen Negative 07/09/20 15:30 Microbiology: Microbiology 07/30/20 17:43 Peripheral/Venous Blood Culture - Preliminary NO GROWTH AFTER 4 DAYS 07/30/20 17:43 Peripheral/Venous Blood Culture - Preliminary NO GROWTH AFTER 4 DAYS - Diagnostic Impressions Diagnostic Impressions: Echocardiogram 07/19/20 13:13 Transthoracic Echocardiogram Indication: CHF BP: 106/58 Conclusions *The left ventricular systolic function is within normal limits. There are no wall motion abnormalities observed. *The estimated ejection fraction is 60-65%. *Normal left ventricular diastolic filling is observed. Findings Procedure Info: The study quality is fair. Left Ventricle: The left ventricular chamber size, wall thickness and systolic function are within normal limits. There are no wall motion abnormalities observed. Ejection fraction is normal. The estimated ejection fraction is 60-65%. Normal left ventricular diastolic filling is observed. Left Atrium: The left atrium is normal in size with no visual thrombus identified. Right Ventricle: The right ventricular chamber size and systolic function are within normal limits. Right Atrium: The right atrium appears normal. Aortic Valve: The aortic valve is trileaflet. The leaflets are thin with normal excursion. There is no aortic stenosis or regurgitation present. Mitral Valve: The mitral valve leaflets are mildly thickened. There is trace of mitral regurgitation. There is no evidence of mitral stenosis. Tricuspid Valve: The tricuspid valve leaflets are normal. There is trace tricuspid regurgitation. The right ventricular systolic pressure is calculated at 14 mmHg. There is no tricuspid stenosis. Pulmonic Valve: The pulmonic valve appears normal. There is mild pulmonic regurgitation. There is no pulmonic stenosis. Pericardium: The pericardium appears normal. Aorta: The aorta appears normal. Pulmonary Artery: The main pulmonary artery appears normal. Venous: The inferior vena cava appears normal in size. There is a greater than 50% respiratory change in the inferior vena cava dimension. Measurements Chambers 2D Name Value Normal Range IVSd (2D) 1.08 cm (0.6 - 1.1) LVPWd (2D) 0.91 cm (0.6 - 1.1) LVIDd (2D) 4.61 cm (3.7 - 5.6) LVIDs (2D) 3.12 cm (2 - 3.8) LV FS (2D) 32.38 % - EF Teichholz (2D) 60.72 % - Ao root diameter (2D) 3.01 cm (2 - 3.7) Volumes/Mass Name Value Normal Range LA ESV SP 4CH (A/L) 57.18 ml - LA ESV SP 2CH (A/L) 62.63 ml - LA ESV BP (A/L) 60.68 ml - LA ESV BP (A/L) index 28.22 ml/m2 - LA ESV SP 4CH (MOD) 51.17 ml - LA ESV SP 2CH (MOD) 57.8 ml - LA ESV BP (MOD) 54.73 ml - LA ESV BP (MOD) index 25.45 ml/m2 - LV EDV SP 4CH (MOD) 115.34 ml - LV ESV SP 4CH (MOD) 43.26 ml - EF SP 4CH (MOD) 62.5 % - LV EDV SP 2CH (MOD) 43.71 ml - LV ESV SP 2CH (MOD) 17.14 ml - EF SP 2CH (MOD) 60.79 % - LV EDV BP 73.15 ml - LV ESV BP 27.92 ml - BP EF (MOD) 61.83 % - Diastolic/Systolic Function Name Value Normal Range MV E-wave Vmax 0.88 m/sec - MV deceleration time 157.66 msec - MV A-wave Vmax 0.91 m/sec - MV E:A ratio 0.96 ratio - Aortic Valve Name Value Normal Range AV Vmax 1.54 m/sec - AV VTI 31.46 cm - AV peak gradient 9.51 mmHg - AV mean gradient 5.1 mmHg - LVOT diameter 1.95 cm - LVOT Vmax 1.21 m/sec - LVOT VTI 27.59 cm - LVOT peak gradient 5.83 mmHg - LVOT mean gradient 3.3 mmHg - SV LVOT 82.76 ml - SMITH (continuity Vmax) 2.35 cm2 - SMITH (continuity VTI) 2.63 cm2 - Ascending Ao 2.94 cm - Tricuspid Valve Name Value Normal Range TV E-wave Vmax 0.49 m/sec - TR Vmax 1.72 m/sec - TR peak gradient 11.86 mmHg - RAP 3 mmHg - RVSP 14 mmHg - IVC diameter 1.91 cm (1.2 - 2.3) Pulmonic Valve/Qp:Qs Name Value Normal Range PV Vmax 0.94 m/sec - PV peak gradient 3.54 mmHg - [place] end-diastolic Vmax 0.54 m/sec - RVOT Vmax 0.68 m/sec - RVOT VTI 13.18 cm - RVOT peak gradient 1.82 mmHg - PV acceleration time 117.98 msec - [place]/IV: Voiding Method Indwelling Catheter IV Catheter Type [Left Upper PICC Line arm] IV Catheter Type [Right INT / Saline Lock Forearm] IV Catheter Type [Left Wrist] INT / Saline Lock IV Catheter Type [Left Hand] Peripheral IV Active Medications - Current Medications Current Medications: Generic Name Dose Route Start Last Admin Trade Name Freq PRN Reason Stop Dose Admin Acetaminophen 650 mg 07/06/20 13:39 07/27/20 18:34 Tylenol PO 650 mg Q4H PRN Administration Pain MILD(1-3)/Fever >100.5/WILLETT Albuterol/Ipratropium 1 ampul 07/26/20 14:00 08/04/20 08:23 Duoneb *Not For Prn Use* IH 1 ampul TIDRT ROMMEL Administration Alprazolam 0.5 mg 07/07/20 12:28 07/27/20 03:15 Xanax PO 0.5 mg Q8H PRN Administration Anxiety Lipase/Protease/Amylase 1 each 07/08/20 14:50 Cayla Price 10,500 Unit FEEDTUBE PRN PRN For Clogged Feeding Tube Arformoterol Tartrate 15 mcg 07/07/20 09:15 08/04/20 08:23 Brodeep Adams IH 15 mcg Q12HRT ROMMEL Administration Ascorbic Acid 500 mg 07/08/20 22:00 08/04/20 09:43 Vitamin C PO 500 mg BID ROMMEL Administration Aspirin 81 mg 07/06/20 14:00 08/04/20 09:43 Baby Aspirin PO 81 mg QDAY ROMMEL Administration Budesonide 0.5 mg 07/07/20 09:15 08/04/20 08:24 Pulmicort IH 0.5 mg Q12HRT ROMMEL Administration Chlordiazepoxide HCl 75 mg 07/30/20 13:00 08/04/20 13:26 Librium PO 75 mg Q8H ROMMEL Administration Dextrose 50 ml 07/12/20 16:58 D50w (25gm) Syringe IV Q30MIN PRN Hypoglycemia Protocol Docusate Sodium 100 mg 07/16/20 22:00 08/04/20 09:43 Colace PO 100 mg BID ROMMEL Administration Enoxaparin Sodium 30 mg 07/06/20 15:00 08/04/20 09:42 Enoxaparin SUB-Q 30 mg BID ROMMEL Administration Protocol Fentanyl 50 mcg 07/08/20 13:16 07/29/20 15:45 Sublimaze IV 50 mcg Q10MIN PRN Administration ANALGESIA Gabapentin 600 mg 07/25/20 14:00 08/04/20 13:26 Gabapentin PO 600 mg Q8HR ROMMEL Administration Hydrophilic Ointment 1 applic 07/08/20 13:16 07/22/20 23:01 Vaseline Lip Therapy TP 1 applic Q2HR PRN Administration Dry Lips Hydroxychloroquine Sulfate 200 mg 07/07/20 10:00 08/04/20 09:43 Plaquenil PO 200 mg QDAY ROMMEL Administration Fentanyl Citrate 2,000 mcg in 100 mls @ 4.825 mls/hr 07/08/20 14:00 08/04/20 09:41 Fentanyl Drip Premix IV 4 mcg/kg/hr TITR ROMMEL 19.3 mls/hr Administration Protocol 1 MCG/KG/HR Midazolam HCl 100 mg/ Sodium 100 mls @ 2 mls/hr 07/08/20 15:00 08/04/20 10:11 Chloride IV 5 mg/hr TITR ROMMEL 5 mls/hr Titration Protocol 2 MG/HR Sodium Chloride 500 mls @ 10 mls/hr 07/15/20 15:00 Nacl 0.9% 500 Ml IV DIRECT ROMMEL Norepinephrine 4 mg in 250 mls @ 7.5 mls/hr 07/27/20 05:00 Levophed Drip 4 Mg/Ns 250 Ml IV TITR ROMMEL Protocol 2 MCG/MIN Vasopressin 20 unit/ Sodium 101 mls @ 9.09 mls/hr 07/30/20 13:00 08/04/20 02:48 Chloride IV 0.03 units/min TITR ROMMEL 9.09 mls/hr Administration Protocol 0.03 UNITS/MIN Phenylephrine HCl 100 mg/ 100 mls @ 3 mls/hr 07/30/20 15:00 08/04/20 10:08 Sodium Chloride IV 0 mcg/min TITR ROMMEL 0 mls/hr Titration Protocol 50 MCG/MIN Sodium Chloride 1,000 mls @ 75 mls/hr 07/31/20 08:30 08/03/20 20:52 Nacl 0.9% 1000 Ml IV 75 mls/hr DIRECT ROMMEL Administration Propofol 1,000 mg in 100 mls @ 2.946 mls/hr 07/31/20 20:00 08/04/20 11:58 Diprivan 10 Mg/Ml IV 15 mcg/kg/min DIRECT ROMMEL 8.838 mls/hr Titration Protocol 5 MCG/KG/MIN Dopamine HCl/Dextrose 800 mg in 250 mls @ 3.679 mls/hr 07/31/20 22:00 Intropin Drip 800 Mg/D5w 250 Ml IV TITR ROMMEL Protocol 2 MCG/KG/MIN Ceftriaxone Sodium 2 gm in 100 mls @ 200 mls/hr 08/02/20 10:00 08/04/20 09:42 Rocephin/Ns 2 Gm/100 Ml IV 200 mls/hr Q24HR ROMMEL Administration Protocol Vancomycin HCl 1,500 mg/ 530 mls @ 333.333 mls/hr 08/02/20 10:00 08/04/20 10:34 Sodium Chloride IV 333.333 mls/hr Q12HR ROMMEL Administration Insulin Glargine 16 units 08/04/20 08:26 08/04/20 09:38 Lantus SUB-Q 16 units Q24H ROMMEL Administration Insulin Human Regular 0 unit 08/01/20 00:00 08/04/20 13:25 Humulin R SUB-Q 4 unit Q6HR ROMMEL Administration Protocol Lansoprazole 30 mg 07/10/20 10:00 08/04/20 09:43 Prevacid Solutab FEEDTUBE 30 mg QDAY ROMMEL Administration Lidocaine 10 ml 08/03/20 16:30 08/03/20 15:45 Xylocaine 1% 20 Ml INFILTRATI 08/04/20 16:29 10 ml PREOP NR Administration Methylprednisolone Sodium Succinate 40 mg 07/22/20 14:00 08/04/20 13:26 Solu-Medrol IV 40 mg Q8H ROMMEL Administration Multi-Ingred Cream/Lotion/Oil/Oint 1 applic 07/08/20 13:16 Artificial Tears Ophth Oint OU Q4HR PRN Dry Eye(s) Ondansetron HCl 4 mg 07/06/20 13:39 07/08/20 10:44 Zofran IV 4 mg Q8H PRN Administration Nausea And Vomiting Polyethylene Glycol 17 gm 07/29/20 12:00 08/04/20 09:39 Miralax 3350 PO Not Given DAILY ROMMEL Pseudoephedrine/Acetam/Chlorphenir 10 ml 07/07/20 01:17 07/08/20 08:30 Robitussin Ac PO 10 ml Q4H PRN Administration Cough Quetiapine Fumarate 200 mg 07/25/20 22:00 08/04/20 09:43 Seroquel PO 200 mg BID ROMMEL Administration Quetiapine Fumarate 100 mg 07/25/20 22:00 08/04/20 09:43 Seroquel PO 100 mg BID ROMMEL Administration Simple Syrup 15 ml 07/08/20 14:50 Simple Syrup FEEDTUBE PRN PRN Hypoglycemia Simple Syrup 30 ml 07/08/20 14:50 Simple Syrup FEEDTUBE PRN PRN Hypoglycemia Sodium Bicarbonate 325 mg 07/08/20 14:50 Sodium Bicarbonate FEEDTUBE PRN PRN For Clogged Feeding Tube Sodium Chloride 10 ml 07/06/20 14:00 08/04/20 09:43 Sodium Chloride Flush Syringe 10 Ml IV 10 ml BID ROMMEL Administration Sodium Chloride 10 ml 07/06/20 13:39 07/26/20 06:31 Sodium Chloride Flush Syringe 10 Ml IV 10 ml PRN PRN Administration LINE FLUSH Venlafaxine HCl 37.5 mg 07/07/20 10:00 08/04/20 09:43 Effexor PO 37.5 mg DAILY ROMMEL Administration Zinc Sulfate 220 mg 07/08/20 22:00 08/04/20 09:43 Zinc Sulfate PO 220 mg BID ROMMEL Administration Nutrition/Malnutrition Assess - Dietary Evaluation Nutrition/Malnutrition Findings: Nutrition Notes Start: 07/08/20 14:02 Freq: Status: Active Protocol: Document 08/01/20 11:00 EN (Rec: 08/01/20 12:16 EN [id number]) Co-Sign 08/01/20 11:00 NHALL Nutrition Notes Initial or Follow up Reassessment Current Diagnosis Acute Kidney Injury, Hypertension,Heart Failure Other Pertinent Diagnosis Acute respiratory failure, COVID(+), GERD, Lupus, Anemia Current Diet Vital AF 1.2 at 55 mL/hr (goal rate) Labs/Tests Na 132 K+ 2.8 BUN 47 POC Glu 246 Pertinent Medications Diprivan Fentanyl Solu-medrol Humulin KCl Vitamin C Zinc Sulfate Height 5 ft 5 in Weight 98.1 kg [place] Body Weight (kg) 56.81 BMI 35.9 Weight change and time frame Wt change noted Weight Status Obese Subjective/Other Information F/u for TF tolerance. Pt remains on vent and is no longer proned. TF infusing at 20 ml/hr and pt tolerating well. RN reports pt had 4 BM last night and 1 BM this morning. Percent of energy/protein needs met: 36%/36% Burn Absent Trauma Absent GI Symptoms None Current % PO Negligible Minimum of two criteria No physical signs of malnutrition #1 Nutrition Diagnosis Inadequate oral intake Diagnosis Progress(for reassessment Continues documentation) Is patient on ventilator? Yes Is Patient Ambulatory and/or Out of Bed No REE-([facility]-confined to bed) 1937.676 Kcal/Kg value to use for calculation 17 Approximate Energy Requirements Using 1668 kcal/Kg Calculation Used for Recommendations Kcal/kg Additional Notes Pro: greater than 114 g (>2 g/ kg IBW) Fluid: 1ml/kcal or per MD Nutrition Intervention Change Diet Order: Continue TF Nutrition Support: Vital AF at 55 ml/hr Flush 75 ml q4h 16 hr prone: Vital AF 1.2 at 10 ml for 16hr . Flush 50 ml q4h. For remaining 8 hours, Vital AF 1.2 at 135 ml/hr. Flush 125 ml q4h. Kcal 1,584 Protein (gm) 99 Fluid (mL) 1,070 Goal #1 Meet at least 80% of protein and energy needs via TF Anticipated Discharge Needs: Cannot determine at this time Follow-Up By: 08/05/20 Additional Comments Follow for TF rate/tolerance and BM pattern
[2020-08-04] MEDS: SODIUM CHLORIDE 0.9% 1000 ML 1,000 ML IV SCH (14:10)
[2020-08-04 14:53] LABS: Hematocrit 22.4 % (30.3-42.9); Hemoglobin 7.1 gm/dl (10.1-14.3); Mean Corpuscular HGB Conc 32 % (30-34); Mean Corpuscular Volume 95 fl (79-97); Platelet Count 143 K/mm3 (140-440); Red Blood Count 2.38 M/mm3 (3.65-5.03); Red Cell Distribution Width 16.5 % (13.2-15.2)
[2020-08-04 15:06] LABS: Alanine Aminotransferase 134 units/L (7-56); Albumin 2.2 g/dL (3.9-5); Blood Urea Nitrogen 27 mg/dL (7-17); Calcium 7.5 mg/dL (8.4-10.2); Hemolysis Index 3
[2020-08-04 15:27] LABS: BUN/Creatinine Ratio 54
--- NOTE | 2020-08-04 16:03 | Progress Note ---
Assessment and Plan 50 yo F with 1. b/l PTX with subcutaneous emphysema 2. COVID PNA 3. VDRF 4. Septic shock Pt stable. Off pressors. CXR 08/04/20 - Tiny apical right PTX, no L PTX. R chest tube x2 and L chest tube x1 in position. Subcutaneous emphysema improved. Plan: 1. Chest tube"RIGHT #2" - set to -[id number] suction 2. Continue chest tube "RIGHT #1" at -[id number] suction 3. Continue chest tube "LEFT" at -[id number] suction 4. Monitor air leaks from right chest tubes - may take time to resolve as patient is on high PEEP. 5. vent management per ICU team 6. Daily CXR Discussed with patient RN Norah. Thank you, please call with any questions or concerns. Evaluation and treatment of this patient was during the time of the national and state emergency arising from COVID19 coronavirus pandemic. Treatment and procedures performed meet the current and available best practice and guidelines for patient during the COVID pandemic. Subjective Date of service: 08/04/20 Narrative: Patient seen and examined. No acute overnight events. No f/c. Patient has been weaned off vaso and justino. Tube feeds have been started. Objective Vital Signs - 12hr 08/04/20 08/04/20 08/04/20 04:00 04:16 04:30 Temperature Pulse Rate 69 69 68 Pulse Rate [ Bilateral Throughout] Pulse Rate [ 76 From Monitor] Respiratory 30 H 30 H 21 Rate Respiratory Rate [Bilateral Throughout] Blood Pressure 125/62 120/63 121/62 O2 Sat by Pulse 100 100 100 Oximetry 08/04/20 08/04/20 08/04/20 04:46 05:00 05:16 Temperature Pulse Rate 68 67 66 Pulse Rate [ Bilateral Throughout] Pulse Rate [ From Monitor] Respiratory 12 13 30 H Rate Respiratory Rate [Bilateral Throughout] Blood Pressure 123/64 126/63 122/63 O2 Sat by Pulse 100 100 100 Oximetry 08/04/20 08/04/20 08/04/20 05:30 05:46 05:52 Temperature Pulse Rate 68 65 62 Pulse Rate [ Bilateral Throughout] Pulse Rate [ From Monitor] Respiratory 22 29 H Rate Respiratory Rate [Bilateral Throughout] Blood Pressure 123/64 135/72 135/75 O2 Sat by Pulse 100 100 100 Oximetry 08/04/20 08/04/20 08/04/20 06:00 06:15 06:30 Temperature Pulse Rate 62 60 58 L Pulse Rate [ Bilateral Throughout] Pulse Rate [ From Monitor] Respiratory 30 H 30 H 30 H Rate Respiratory Rate [Bilateral Throughout] Blood Pressure 146/79 151/86 170/90 O2 Sat by Pulse 100 100 100 Oximetry 08/04/20 08/04/20 08/04/20 06:46 07:00 07:16 Temperature Pulse Rate 58 L 58 L 58 L Pulse Rate [ Bilateral Throughout] Pulse Rate [ From Monitor] Respiratory 30 H 30 H 30 H Rate Respiratory Rate [Bilateral Throughout] Blood Pressure 179/92 175/96 167/94 O2 Sat by Pulse 100 100 100 Oximetry 08/04/20 08/04/20 08/04/20 07:30 07:46 08:00 Temperature 98 F Pulse Rate 59 L 59 L 57 L Pulse Rate [ Bilateral Throughout] Pulse Rate [ 57 L From Monitor] Respiratory 30 H 30 H 30 H Rate Respiratory Rate [Bilateral Throughout] Blood Pressure 182/96 179/97 176/96 O2 Sat by Pulse 100 100 100 Oximetry 08/04/20 08/04/20 08/04/20 08:15 08:18 08:30 Temperature Pulse Rate 60 60 60 Pulse Rate [ Bilateral Throughout] Pulse Rate [ From Monitor] Respiratory 30 H 30 H Rate Respiratory Rate [Bilateral Throughout] Blood Pressure 168/90 168/90 159/84 O2 Sat by Pulse 100 100 100 Oximetry 08/04/20 08/04/20 08/04/20 08:46 09:00 09:16 Temperature Pulse Rate 61 61 61 Pulse Rate [ 62 Bilateral Throughout] Pulse Rate [ From Monitor] Respiratory 30 H 30 H 30 H Rate Respiratory 30 H Rate [Bilateral Throughout] Blood Pressure 151/84 153/83 158/86 O2 Sat by Pulse 100 100 100 Oximetry 08/04/20 08/04/20 08/04/20 09:30 09:46 10:00 Temperature Pulse Rate 61 62 61 Pulse Rate [ Bilateral Throughout] Pulse Rate [ From Monitor] Respiratory 30 H 30 H 30 H Rate Respiratory Rate [Bilateral Throughout] Blood Pressure 152/89 153/82 147/80 O2 Sat by Pulse 100 100 100 Oximetry 08/04/20 08/04/20 08/04/20 10:16 10:30 10:39 Temperature Pulse Rate 63 62 Pulse Rate [ Bilateral Throughout] Pulse Rate [ From Monitor] Respiratory 30 H 30 H 30 H Rate Respiratory Rate [Bilateral Throughout] Blood Pressure 141/77 142/75 O2 Sat by Pulse 99 100 Oximetry 08/04/20 08/04/20 08/04/20 10:46 11:00 11:16 Temperature Pulse Rate 61 61 60 Pulse Rate [ Bilateral Throughout] Pulse Rate [ From Monitor] Respiratory 30 H 30 H 30 H Rate Respiratory Rate [Bilateral Throughout] Blood Pressure 141/80 144/80 148/79 O2 Sat by Pulse 99 100 100 Oximetry 08/04/20 08/04/20 08/04/20 11:30 11:46 11:49 Temperature Pulse Rate 60 60 60 Pulse Rate [ Bilateral Throughout] Pulse Rate [ From Monitor] Respiratory 30 H 30 H Rate Respiratory Rate [Bilateral Throughout] Blood Pressure 150/80 150/83 O2 Sat by Pulse 100 100 Oximetry 08/04/20 08/04/20 08/04/20 11:50 12:00 12:05 Temperature Pulse Rate 58 L 57 L Pulse Rate [ Bilateral Throughout] Pulse Rate [ 60 From Monitor] Respiratory 30 H 30 H Rate Respiratory Rate [Bilateral Throughout] Blood Pressure 153/82 153/82 O2 Sat by Pulse 100 100 Oximetry 08/04/20 08/04/20 08/04/20 12:16 12:30 12:46 Temperature Pulse Rate 60 58 L 59 L Pulse Rate [ Bilateral Throughout] Pulse Rate [ From Monitor] Respiratory 30 H 30 H 30 H Rate Respiratory Rate [Bilateral Throughout] Blood Pressure 152/83 148/82 148/80 O2 Sat by Pulse 100 100 100 Oximetry 08/04/20 08/04/20 08/04/20 13:00 13:16 13:30 Temperature Pulse Rate 59 L 61 66 Pulse Rate [ Bilateral Throughout] Pulse Rate [ From Monitor] Respiratory 30 H 30 H 17 Rate Respiratory Rate [Bilateral Throughout] Blood Pressure 157/71 150/84 142/82 O2 Sat by Pulse 100 100 100 Oximetry 08/04/20 08/04/20 08/04/20 13:46 14:00 14:16 Temperature Pulse Rate 74 76 75 Pulse Rate [ Bilateral Throughout] Pulse Rate [ From Monitor] Respiratory 19 31 H 30 H Rate Respiratory Rate [Bilateral Throughout] Blood Pressure 153/89 129/69 130/69 O2 Sat by Pulse 100 99 99 Oximetry 08/04/20 08/04/20 08/04/20 14:30 14:46 15:00 Temperature Pulse Rate 84 87 84 Pulse Rate [ Bilateral Throughout] Pulse Rate [ From Monitor] Respiratory 30 H 20 29 H Rate Respiratory Rate [Bilateral Throughout] Blood Pressure 126/66 120/54 121/57 O2 Sat by Pulse 100 100 100 Oximetry 08/04/20 15:16 Temperature Pulse Rate 85 Pulse Rate [ Bilateral Throughout] Pulse Rate [ From Monitor] Respiratory 23 Rate Respiratory Rate [Bilateral Throughout] Blood Pressure 109/58 O2 Sat by Pulse 99 Oximetry - General physical appearance Narrative Exam: Gen.: Intubated and sedated. ENT: ET tube and OG tube in place. Respiratory: Right chest tube #1 with serosanguineous drainage in tubing, continuous air leak. Right chest tube #2 with serosanguineous drainage in tu ana, continuous air leak. Left chest tube no leak. - Labs 08/04/20 Unknown 08/04/20 Unknown Diabetes panel 08/04/20 Range/Units Unknown Sodium 145 (137-145) mmol/L Potassium 4.1 (3.6-5.0) mmol/L Chloride 113.1 H (98-107) mmol/L Carbon Dioxide 23 (22-30) mmol/L BUN 27 H (7-17) mg/dL Creatinine 0.5 L (0.6-1.2) mg/dL Glucose 190 H (65-100) mg/dL Calcium 7.5 L (8.4-10.2) mg/dL AST 17 (5-40) units/L ALT 134 H (7-56) units/L Alkaline Phosphatase 73 (35-129) units/L Total Protein 4.7 L (6.3-8.2) g/dL Albumin 2.2 L (3.9-5) g/dL Calcium panel 08/04/20 Range/Units Unknown Calcium 7.5 L (8.4-10.2) mg/dL Albumin 2.2 L (3.9-5) g/dL Pituitary panel 08/04/20 Range/Units Unknown Sodium 145 (137-145) mmol/L Potassium 4.1 (3.6-5.0) mmol/L Chloride 113.1 H (98-107) mmol/L Carbon Dioxide 23 (22-30) mmol/L BUN 27 H (7-17) mg/dL Creatinine 0.5 L (0.6-1.2) mg/dL Glucose 190 H (65-100) mg/dL Calcium 7.5 L (8.4-10.2) mg/dL Adrenal panel 08/04/20 Range/Units Unknown Sodium 145 (137-145) mmol/L Potassium 4.1 (3.6-5.0) mmol/L Chloride 113.1 H (98-107) mmol/L Carbon Dioxide 23 (22-30) mmol/L BUN 27 H (7-17) mg/dL Creatinine 0.5 L (0.6-1.2) mg/dL Glucose 190 H (65-100) mg/dL Calcium 7.5 L (8.4-10.2) mg/dL Total Bilirubin 0.20 (0.1-1.2) mg/dL AST 17 (5-40) units/L ALT 134 H (7-56) units/L Alkaline Phosphatase 73 (35-129) units/L Total Protein 4.7 L (6.3-8.2) g/dL Albumin 2.2 L (3.9-5) g/dL
[2020-08-04 16:56] LABS: Band Neutrophils # (Manual) 0.4 K/mm3; Basophils % (Manual) 0 % (0.0-1.8); Monocytes % (Manual) 0 % (0.0-7.3); Myelocytes # (Manual) 0.4 K/mm3; Total Cells Counted 100
[2020-08-04 16:57] LABS: Tear Drop Cells Few
[2020-08-04 16:58] LABS: Ovalocytes Few; Platelet Estimate Consistent w Auto
[2020-08-05] MEDS: INSULIN REGULAR, HUMAN 100 UNIT/ML 3ML VIAL SUB-Q SCH ×5 (00:13→23:34)
[2020-08-05] MEDS: fentaNYL DRIP Premix 2,000 MCG/100 ML BAG IV SCH ×5 (01:06→21:00)
[2020-08-05] MEDS: MIDAZOLAM 100 MG in SODIUM CHLORIDE 0.9% 80 ML IV SCH (01:58)
[2020-08-05] MEDS: SODIUM CHLORIDE 0.9% 1000 ML 1,000 ML IV SCH (04:36)
[2020-08-05] MEDS: methylPREDNISolone Sod Succinate 40 MG/1 ML INJ IV SCH ×3 (05:26→21:02)
[2020-08-05] MEDS: chlordiazePOXIDE 25 MG CAP PO SCH ×3 (05:27→20:08)
[2020-08-05] MEDS: GABAPENTIN 300 MG CAP PO SCH ×3 (05:27→21:02)
[2020-08-05] MEDS: BUDESONIDE 0.5 MG/2 ML NEBU IH SCH (08:27)
[2020-08-05] MEDS: ARFORMOTEROL 15 MCG/2 ML NEBU IH SCH (08:27)
[2020-08-05] MEDS: IPRATROPIUM/ALBUTEROL SULFATE 3 ML AMPUL.NEB IH SCH (08:27)
[2020-08-05 08:49] LABS: Hematocrit 26.1 % (30.3-42.9); Hemoglobin 8.3 gm/dl (10.1-14.3); Mean Corpuscular HGB Conc 32 % (30-34); Mean Corpuscular Volume 94 fl (79-97); Platelet Count 218 K/mm3 (140-440); Red Blood Count 2.79 M/mm3 (3.65-5.03); Red Cell Distribution Width 16.7 % (13.2-15.2)
[2020-08-05 09:12] LABS: Alanine Aminotransferase 115 units/L (7-56); Albumin 2.3 g/dL (3.9-5); Blood Urea Nitrogen 25 mg/dL (7-17); Calcium 8.5 mg/dL (8.4-10.2); Hemolysis Index 0
[2020-08-05 09:17] LABS: BUN/Creatinine Ratio 42
--- NOTE | 2020-08-05 09:35 | XRay Report ---
CHEST 1 VIEW INDICATION / CLINICAL INFORMATION: Reevaluate PTXs. COMPARISON: 08/04/2020 FINDINGS: SUPPORT DEVICES: Unchanged. HEART / MEDIASTINUM: Stable. LUNGS / PLEURA: Interval improvement of bilateral pulmonary opacities. Interval improvement of right- sided pneumothorax now with a tiny residual apical pneumothorax. No definitive left-sided pneumothora x. ADDITIONAL FINDINGS: Subcutaneous emphysema across the chest and neck similar to prior exam. Gas-fill ed and distended gastric lumen is noted. IMPRESSION: 1. Improved right-sided pneumothorax with a tiny residual apical pneumothorax. No definitive left-seymour ed pneumothorax. 2. Interval improvement of bilateral pulmonary opacities since prior exam. 3. No significant change in positioning of the previously noted medical devices. Signer Name: Broderick Leyva MD Signed: 08/05/2020 9:30 AM Workstation Name: [id number]
--- NOTE | 2020-08-05 10:50 | Progress Note ---
Assessment and Plan Acute hypoxemic respiratory failure, now on MVS Bilateral pneumonia, left greater than right lungs. COVID-19 infection. History of congestive heart failure. History of lupus erythematosus. Leukocytosis. Tobacco use disorder. Acute asthma exacerbation. History of hypertension. Obesity - stat D-dimer - resume full dose anticoagulation with IV Heparin - follow nephrology consultation - resume Propofol and increase sedation re: tachycardia (SVT) and increased work of breathing - increased free water to 200 mls q4h po - Reglan 5 mg IV q6h - discontinue alves catheter - NGT to LIS X 4 hours then resume tube feeds - get KUB re: gastric dilatation and emesis - continue care as below otherwise; - continue chest tubes to continuous suction (surgery assistance appreciated) - keep peep at 16 - continue sedation and target RASS -2 to -3 acutely - repeat ABG in am - growing E. Coli & MRSA from tracheal aspirate; continue and de-escalate AB's per ID recommendations - wean Vasopressors for target MAP > 65 mmHg - continue Librium - repeat COVID-19 test is positive - continue systemic steroids - continue to wean supplemental oxygen for target O2 sat's > 92% - continue low dose SSI - continue Seroquel 300 mg p.o. bid - continue airborne and contact isolation - continue Zinc & Vit C supplementaion - complete Remdesivir - de-escalate AB's per ID rec's - continue systemic steroids for Asthma / severe COVID infection - continue Daily SAT and SBT assessment as tolerated - VAP bundle addressed - continue lung protective strategies - continue bronchodilators with pulmonary hygiene per RT - wean per pulmonary driven protocols otherwise - accuchecks with glycemic control per SSI (While critically ill target blood glucose of 140-180 mg/dL; avoid hypoglycemia) - sedation prn for target RASS -1 to -2 - avoid nephrotoxins, renally dose all medications - continue to avoid benzodiazepine's, reduce the possibility of delirium - prn analgesia per CPOT score - Maintenance of sleep-wake cycle, avoid delirium - continue enteral nutritional support at goal rate as tolerated - G.I. & VTE prophylaxis - PT/OT/ROM exercises - continue mobility protocols for pressure ulcer prophylaxis - Monitor hemodynamics closely - continue other care per attending / other consultants - discharge planning ongoing concurrently - prognosis grave to guarded especially neurologic-rai .... Re-evaluate in am & prn CONDITION: CRITICAL PROGNOSIS: GUARDED CODE STATUS: FULL CODE The high probability of a clinically significant, sudden or life-threatening deterioration of the [respiratory, cardiovascular & neurologic] system(s) required my full and direct attention, intervention and personal management. The aggregate critical care time was [36] minutes without overlap. Time includes spent on; [x] Data Review and interpretation [x] Patient assessment and monitoring of vital signs [x] Documentation [x] Medication orders and management Subjective Date of service: 08/05/20 Principal diagnosis: Ac hypoxemic resp failure; PNA; COVID-19 infxn; SLE; Asthma exacerbation Interval history: Patient is seen today for: Acute hypoxemic respiratory failure; Bilateral pneumonia; COVID-19 infection; H/O CHF; SLE; Acute asthma exacerbation. HTN; Obesity Seen and examined at bedside; 24hour events reviewed; nursing and respiratory care staff consulted; no adverse overnight events reported to me; resting peacefully in bed; remains on MVS; chest tubes remain in place; oxygenation slowly improving; leaks persist in right sided chest tubes but improved Objective Vital Signs - 12hr 08/04/20 08/04/20 08/04/20 23:00 23:04 23:16 Temperature Pulse Rate 105 H 105 H 103 H Pulse Rate [ Bilateral Throughout] Pulse Rate [ From Monitor] Respiratory 12 12 13 Rate Respiratory Rate [Bilateral Throughout] Blood Pressure 178/76 178/76 157/79 O2 Sat by Pulse 99 100 100 Oximetry 08/04/20 08/04/20 08/04/20 23:30 23:46 23:47 Temperature 98.7 F Pulse Rate 105 H 104 H Pulse Rate [ Bilateral Throughout] Pulse Rate [ From Monitor] Respiratory 12 12 Rate Respiratory Rate [Bilateral Throughout] Blood Pressure 163/77 150/77 O2 Sat by Pulse 100 100 Oximetry 08/05/20 08/05/20 08/05/20 00:00 00:01 00:16 Temperature Pulse Rate 104 H 105 H 104 H Pulse Rate [ Bilateral Throughout] Pulse Rate [ 104 H From Monitor] Respiratory 14 12 Rate Respiratory Rate [Bilateral Throughout] Blood Pressure 162/81 150/77 168/80 O2 Sat by Pulse 100 100 100 Oximetry 08/05/20 08/05/20 08/05/20 00:30 00:46 01:00 Temperature Pulse Rate 108 H 105 H 105 H Pulse Rate [ Bilateral Throughout] Pulse Rate [ From Monitor] Respiratory 13 14 14 Rate Respiratory Rate [Bilateral Throughout] Blood Pressure 170/79 156/83 167/82 O2 Sat by Pulse 100 100 100 Oximetry 08/05/20 08/05/20 08/05/20 01:16 01:30 01:46 Temperature Pulse Rate 107 H 110 H 108 H Pulse Rate [ Bilateral Throughout] Pulse Rate [ From Monitor] Respiratory 14 15 15 Rate Respiratory Rate [Bilateral Throughout] Blood Pressure 155/83 174/86 148/84 O2 Sat by Pulse 98 100 100 Oximetry 08/05/20 08/05/20 08/05/20 02:00 02:16 02:30 Temperature Pulse Rate 107 H 110 H 111 H Pulse Rate [ Bilateral Throughout] Pulse Rate [ From Monitor] Respiratory 13 14 16 Rate Respiratory Rate [Bilateral Throughout] Blood Pressure 139/82 155/83 162/83 O2 Sat by Pulse 100 99 100 Oximetry 08/05/20 08/05/20 08/05/20 02:46 03:00 03:16 Temperature Pulse Rate 109 H 113 H 112 H Pulse Rate [ Bilateral Throughout] Pulse Rate [ From Monitor] Respiratory 16 16 17 Rate Respiratory Rate [Bilateral Throughout] Blood Pressure 160/80 169/86 165/85 O2 Sat by Pulse 99 99 99 Oximetry 08/05/20 08/05/20 08/05/20 03:22 03:30 03:46 Temperature 98.9 F Pulse Rate 111 H 113 H Pulse Rate [ Bilateral Throughout] Pulse Rate [ From Monitor] Respiratory 19 21 Rate Respiratory Rate [Bilateral Throughout] Blood Pressure 176/84 189/85 O2 Sat by Pulse 99 99 Oximetry 08/05/20 08/05/20 08/05/20 03:55 04:00 04:16 Temperature Pulse Rate 113 H 113 H 116 H Pulse Rate [ Bilateral Throughout] Pulse Rate [ 113 H From Monitor] Respiratory 20 20 Rate Respiratory Rate [Bilateral Throughout] Blood Pressure 189/65 173/93 186/90 O2 Sat by Pulse 99 99 99 Oximetry 08/05/20 08/05/20 08/05/20 04:30 04:46 05:00 Temperature Pulse Rate 117 H 120 H 137 H Pulse Rate [ Bilateral Throughout] Pulse Rate [ From Monitor] Respiratory 22 27 H 31 H Rate Respiratory Rate [Bilateral Throughout] Blood Pressure 190/89 209/108 238/92 O2 Sat by Pulse 99 99 Oximetry 08/05/20 08/05/20 08/05/20 05:15 05:30 05:46 Temperature Pulse Rate 155 H 149 H 147 H Pulse Rate [ Bilateral Throughout] Pulse Rate [ From Monitor] Respiratory 25 H 25 H 21 Rate Respiratory Rate [Bilateral Throughout] Blood Pressure 168/84 160/89 170/80 O2 Sat by Pulse 95 99 100 Oximetry 08/05/20 08/05/20 08/05/20 06:00 06:16 08:25 Temperature Pulse Rate 144 H 145 H 135 H Pulse Rate [ Bilateral Throughout] Pulse Rate [ From Monitor] Respiratory 19 19 Rate Respiratory Rate [Bilateral Throughout] Blood Pressure 163/79 152/77 137/66 O2 Sat by Pulse 100 100 99 Oximetry 08/05/20 09:10 Temperature Pulse Rate Pulse Rate [ 138 H Bilateral Throughout] Pulse Rate [ From Monitor] Respiratory Rate Respiratory 30 H Rate [Bilateral Throughout] Blood Pressure O2 Sat by Pulse Oximetry Constitutional: no acute distress, other (middle aged obese female with mildly increased respiratory effort at rest on MVS) Eyes: non-icteric ENT: oropharynx moist, other (ETT 23cm YANET) Neck: supple, no lymphadenopathy, no JVD Effort: mildly labored Ascultation: Bilateral: diminished breath sounds, rhonchi, other (two R. chest tubes and 1 on left (leaks on right side)) Percussion: Bilateral: not dull Cardiovascular: regular rate and rhythm, other (S1,S2) Gastrointestinal: normoactive bowel sounds, soft, non-tender, non-distended Integumentary: normal Extremities: no cyanosis, no edema, pulses normal, no ischemia or petechiae Neurologic: pupils equal and round, other (sedated) Psychiatric: other (unable to assess re: AMS / sedation) CBC and BMP: 08/06/20 04:00 08/06/20 04:00 ABG, PT/INR, D-dimer: ABG ABG pH 7.358 (7.320-7.450) 08/05/20 05:50 POC ABG pCO2 51.7 mmHg (32.0-48.0) H 08/05/20 05:50 ABG pCO2 81.7 mm Hg 07/28/20 04:15 POC ABG pO2 63.3 mmHg (83-108) L 08/05/20 05:50 ABG pO2 130.3 mm Hg (80.0-90.0) H 07/28/20 04:15 POC ABG HCO3 28.4 08/05/20 05:50 ABG O2 Saturation 98.1 % (95.0-99.0) 07/28/20 04:15 PT/INR, D-dimer D-Dimer 2522.40 ng/mlDDU (0-234) H 07/31/20 14:14 Abnormal lab findings: Abnormal Labs 07/06/20 07/06/20 07/07/20 05:24 17:16 04:50 WBC 13.5 H 12.7 H RBC Hgb Hct MCH MCHC RDW Plt Count Lymph % (Auto) Lymph # (Auto) Seg Neutrophils % Seg Neuts % (Manual) 86.0 H 87.0 H Lymphocytes % (Manual) 6.0 L 9.0 L Eosinophils % (Manual) Nucleated RBC % Seg Neutrophils # Seg Neutrophils # Man 11.6 H 11.0 H Lymphocytes # (Manual) 0.8 L 1.1 L Eosinophils # (Manual) D-Dimer ABG pH POC ABG pCO2 POC ABG pO2 ABG pO2 ABG HCO3 ABG O2 Saturation ABG Base Excess ABG Hemoglobin ABG Oxyhemoglobin ABG Sodium ABG Potassium ABG Chloride ABG Glucose Oxyhemoglobin Carboxyhemoglobin Sodium Potassium Chloride Carbon Dioxide BUN Creatinine Glucose POC Glucose Lactic Acid Calcium Ferritin AST ALT Lactate Dehydrogenase 242 H C-Reactive Protein 7.30 H Total Protein Albumin Triglycerides Arterial Blood Glucose Arterial Blood Ionized Calcium Urine Creatinine Urine Total Protein Vancomycin Trough Coronavirus (PCR) SARS-CoV-2 IgG Ab 07/07/20 07/07/20 07/07/20 04:50 14:22 14:22 WBC RBC Hgb Hct MCH MCHC RDW Plt Count Lymph % (Auto) Lymph # (Auto) Seg Neutrophils % Seg Neuts % (Manual) Lymphocytes % (Manual) Eosinophils % (Manual) Nucleated RBC % Seg Neutrophils # Seg Neutrophils # Man Lymphocytes # (Manual) Eosinophils # (Manual) D-Dimer ABG pH POC ABG pCO2 POC ABG pO2 ABG pO2 ABG HCO3 ABG O2 Saturation ABG Base Excess ABG Hemoglobin ABG Oxyhemoglobin ABG Sodium ABG Potassium ABG Chloride ABG Glucose Oxyhemoglobin Carboxyhemoglobin Sodium Potassium Chloride Carbon Dioxide BUN 18 H Creatinine Glucose 138 H POC Glucose Lactic Acid Calcium Ferritin 228.2 H AST ALT Lactate Dehydrogenase 277 H C-Reactive Protein Total Protein 5.9 L Albumin 3.4 L Triglycerides Arterial Blood Glucose Arterial Blood Ionized Calcium Urine Creatinine Urine Total Protein Vancomycin Trough Coronavirus (PCR) SARS-CoV-2 IgG Ab 07/08/20 07/08/20 07/08/20 11:18 12:57 16:13 WBC RBC Hgb Hct MCH MCHC RDW Plt Count Lymph % (Auto) Lymph # (Auto) Seg Neutrophils % Seg Neuts % (Manual) Lymphocytes % (Manual) Eosinophils % (Manual) Nucleated RBC % Seg Neutrophils # Seg Neutrophils # Man Lymphocytes # (Manual) Eosinophils # (Manual) D-Dimer ABG pH POC ABG pCO2 POC ABG pO2 ABG pO2 39.3 L* ABG HCO3 ABG O2 Saturation 76.8 L ABG Base Excess ABG Hemoglobin ABG Oxyhemoglobin ABG Sodium ABG Potassium ABG Chloride ABG Glucose Oxyhemoglobin 75.3 L Carboxyhemoglobin Sodium Potassium Chloride Carbon Dioxide 20 L D BUN Creatinine Glucose 135 H POC Glucose 106 H Lactic Acid Calcium 8.0 L Ferritin AST ALT Lactate Dehydrogenase C-Reactive Protein Total Protein Albumin Triglycerides Arterial Blood Glucose Arterial Blood Ionized Calcium Urine Creatinine Urine Total Protein Vancomycin Trough Coronavirus (PCR) SARS-CoV-2 IgG Ab 07/08/20 07/08/20 07/09/20 17:04 18:45 04:00 WBC 15.6 H RBC Hgb Hct MCH MCHC RDW Plt Count Lymph % (Auto) 4.7 L Lymph # (Auto) 0.7 L Seg Neutrophils % Seg Neuts % (Manual) Lymphocytes % (Manual) Eosinophils % (Manual) Nucleated RBC % Seg Neutrophils # 14.2 H Seg Neutrophils # Man Lymphocytes # (Manual) Eosinophils # (Manual) D-Dimer ABG pH POC ABG pCO2 POC ABG pO2 ABG pO2 181.8 H ABG HCO3 ABG O2 Saturation 99.1 H ABG Base Excess ABG Hemoglobin 11.4 L ABG Oxyhemoglobin ABG Sodium ABG Potassium ABG Chloride ABG Glucose Oxyhemoglobin Carboxyhemoglobin Sodium Potassium Chloride Carbon Dioxide BUN Creatinine Glucose POC Glucose 117 H Lactic Acid Calcium Ferritin AST ALT Lactate Dehydrogenase C-Reactive Protein Total Protein Albumin Triglycerides Arterial Blood Glucose Arterial Blood Ionized Calcium Urine Creatinine Urine Total Protein Vancomycin Trough Coronavirus (PCR) SARS-CoV-2 IgG Ab 07/09/20 07/09/20 07/09/20 04:00 04:00 04:49 WBC RBC Hgb Hct MCH MCHC RDW Plt Count Lymph % (Auto) Lymph # (Auto) Seg Neutrophils % Seg Neuts % (Manual) Lymphocytes % (Manual) Eosinophils % (Manual) Nucleated RBC % Seg Neutrophils # Seg Neutrophils # Man Lymphocytes # (Manual) Eosinophils # (Manual) D-Dimer ABG pH POC ABG pCO2 POC ABG pO2 ABG pO2 ABG HCO3 26.2 H ABG O2 Saturation ABG Base Excess ABG Hemoglobin 11.2 L ABG Oxyhemoglobin ABG Sodium ABG Potassium ABG Chloride ABG Glucose Oxyhemoglobin 94.9 L Carboxyhemoglobin Sodium Potassium Chloride Carbon Dioxide BUN Creatinine Glucose 158 H POC Glucose Lactic Acid Calcium 8.2 L Ferritin 320.0 H AST ALT Lactate Dehydrogenase 391 H C-Reactive Protein 9.50 H Total Protein 5.9 L Albumin 3.2 L Triglycerides Arterial Blood Glucose Arterial Blood Ionized Calcium Urine Creatinine Urine Total Protein Vancomycin Trough Coronavirus (PCR) SARS-CoV-2 IgG Ab 07/09/20 07/09/20 07/09/20 11:56 17:49 23:39 WBC RBC Hgb Hct MCH MCHC RDW Plt Count Lymph % (Auto) Lymph # (Auto) Seg Neutrophils % Seg Neuts % (Manual) Lymphocytes % (Manual) Eosinophils % (Manual) Nucleated RBC % Seg Neutrophils # Seg Neutrophils # Man Lymphocytes # (Manual) Eosinophils # (Manual) D-Dimer ABG pH POC ABG pCO2 POC ABG pO2 ABG pO2 ABG HCO3 ABG O2 Saturation ABG Base Excess ABG Hemoglobin ABG Oxyhemoglobin ABG Sodium ABG Potassium ABG Chloride ABG Glucose Oxyhemoglobin Carboxyhemoglobin Sodium Potassium Chloride Carbon Dioxide BUN Creatinine Glucose POC Glucose 156 H 119 H 145 H Lactic Acid Calcium Ferritin AST ALT Lactate Dehydrogenase C-Reactive Protein Total Protein Albumin Triglycerides Arterial Blood Glucose Arterial Blood Ionized Calcium Urine Creatinine Urine Total Protein Vancomycin Trough Coronavirus (PCR) SARS-CoV-2 IgG Ab 07/10/20 07/10/20 07/10/20 03:32 05:26 11:22 WBC RBC Hgb Hct MCH MCHC RDW Plt Count Lymph % (Auto) Lymph # (Auto) Seg Neutrophils % Seg Neuts % (Manual) Lymphocytes % (Manual) Eosinophils % (Manual) Nucleated RBC % Seg Neutrophils # Seg Neutrophils # Man Lymphocytes # (Manual) Eosinophils # (Manual) D-Dimer ABG pH POC ABG pCO2 POC ABG pO2 ABG pO2 75.7 L ABG HCO3 27.5 H ABG O2 Saturation ABG Base Excess ABG Hemoglobin 9.3 L ABG Oxyhemoglobin ABG Sodium ABG Potassium ABG Chloride ABG Glucose Oxyhemoglobin 94.7 L Carboxyhemoglobin Sodium Potassium Chloride Carbon Dioxide BUN Creatinine Glucose POC Glucose 156 H 148 H Lactic Acid Calcium Ferritin AST ALT Lactate Dehydrogenase C-Reactive Protein Total Protein Albumin Triglycerides Arterial Blood Glucose Arterial Blood Ionized Calcium Urine Creatinine Urine Total Protein Vancomycin Trough Coronavirus (PCR) SARS-CoV-2 IgG Ab 07/10/20 07/10/20 07/10/20 12:10 12:10 18:20 WBC 14.1 H RBC 3.33 L Hgb 9.9 L Hct MCH MCHC RDW Plt Count Lymph % (Auto) Lymph # (Auto) Seg Neutrophils % Seg Neuts % (Manual) 89.0 H Lymphocytes % (Manual) 8.0 L Eosinophils % (Manual) Nucleated RBC % Seg Neutrophils # Seg Neutrophils # Man 12.5 H Lymphocytes # (Manual) 1.1 L Eosinophils # (Manual) D-Dimer ABG pH POC ABG pCO2 POC ABG pO2 ABG pO2 ABG HCO3 ABG O2 Saturation ABG Base Excess ABG Hemoglobin ABG Oxyhemoglobin ABG Sodium ABG Potassium ABG Chloride ABG Glucose Oxyhemoglobin Carboxyhemoglobin Sodium Potassium Chloride Carbon Dioxide BUN 21 H Creatinine Glucose 154 H POC Glucose 181 H Lactic Acid Calcium 8.0 L Ferritin AST ALT Lactate Dehydrogenase C-Reactive Protein Total Protein 5.4 L Albumin 3.0 L Triglycerides Arterial Blood Glucose Arterial Blood Ionized Calcium Urine Creatinine Urine Total Protein Vancomycin Trough Coronavirus (PCR) SARS-CoV-2 IgG Ab 07/10/20 07/11/20 07/11/20 23:51 04:05 05:43 WBC RBC Hgb Hct MCH MCHC RDW Plt Count Lymph % (Auto) Lymph # (Auto) Seg Neutrophils % Seg Neuts % (Manual) Lymphocytes % (Manual) Eosinophils % (Manual) Nucleated RBC % Seg Neutrophils # Seg Neutrophils # Man Lymphocytes # (Manual) Eosinophils # (Manual) D-Dimer ABG pH 7.348 L POC ABG pCO2 POC ABG pO2 ABG pO2 93.6 H ABG HCO3 28.5 H ABG O2 Saturation ABG Base Excess ABG Hemoglobin 10.1 L ABG Oxyhemoglobin ABG Sodium ABG Potassium ABG Chloride ABG Glucose Oxyhemoglobin Carboxyhemoglobin Sodium Potassium Chloride Carbon Dioxide BUN Creatinine Glucose POC Glucose 116 H 132 H Lactic Acid Calcium Ferritin AST ALT Lactate Dehydrogenase C-Reactive Protein Total Protein Albumin Triglycerides Arterial Blood Glucose Arterial Blood Ionized Calcium Urine Creatinine Urine Total Protein Vancomycin Trough Coronavirus (PCR) SARS-CoV-2 IgG Ab 07/11/20 07/11/20 07/11/20 09:11 09:11 09:11 WBC 15.8 H RBC 3.44 L Hgb Hct MCH MCHC RDW Plt Count Lymph % (Auto) Lymph # (Auto) Seg Neutrophils % Seg Neuts % (Manual) 92.0 H Lymphocytes % (Manual) 4.0 L Eosinophils % (Manual) Nucleated RBC % Seg Neutrophils # Seg Neutrophils # Man 14.5 H Lymphocytes # (Manual) 0.6 L Eosinophils # (Manual) D-Dimer 360.61 H ABG pH POC ABG pCO2 POC ABG pO2 ABG pO2 ABG HCO3 ABG O2 Saturation ABG Base Excess ABG Hemoglobin ABG Oxyhemoglobin ABG Sodium ABG Potassium ABG Chloride ABG Glucose Oxyhemoglobin Carboxyhemoglobin Sodium Potassium Chloride 107.1 H Carbon Dioxide BUN 22 H Creatinine Glucose 149 H POC Glucose Lactic Acid Calcium 7.8 L Ferritin AST ALT Lactate Dehydrogenase 483 H C-Reactive Protein 2.30 H Total Protein 4.9 L Albumin 3.0 L Triglycerides Arterial Blood Glucose Arterial Blood Ionized Calcium Urine Creatinine Urine Total Protein Vancomycin Trough Coronavirus (PCR) SARS-CoV-2 IgG Ab 07/11/20 07/11/20 07/11/20 09:11 12:16 17:55 WBC RBC Hgb Hct MCH MCHC RDW Plt Count Lymph % (Auto) Lymph # (Auto) Seg Neutrophils % Seg Neuts % (Manual) Lymphocytes % (Manual) Eosinophils % (Manual) Nucleated RBC % Seg Neutrophils # Seg Neutrophils # Man Lymphocytes # (Manual) Eosinophils # (Manual) D-Dimer ABG pH POC ABG pCO2 POC ABG pO2 ABG pO2 ABG HCO3 ABG O2 Saturation ABG Base Excess ABG Hemoglobin ABG Oxyhemoglobin ABG Sodium ABG Potassium ABG Chloride ABG Glucose Oxyhemoglobin Carboxyhemoglobin Sodium Potassium Chloride Carbon Dioxide BUN Creatinine Glucose POC Glucose 157 H 166 H Lactic Acid Calcium Ferritin 371.2 H AST ALT Lactate Dehydrogenase C-Reactive Protein Total Protein Albumin Triglycerides Arterial Blood Glucose Arterial Blood Ionized Calcium Urine Creatinine Urine Total Protein Vancomycin Trough Coronavirus (PCR) SARS-CoV-2 IgG Ab 07/12/20 07/12/20 07/12/20 00:32 04:00 04:00 WBC RBC 3.52 L Hgb Hct MCH MCHC RDW Plt Count Lymph % (Auto) Lymph # (Auto) Seg Neutrophils % Seg Neuts % (Manual) 90.0 H Lymphocytes % (Manual) 4.0 L Eosinophils % (Manual) Nucleated RBC % Seg Neutrophils # Seg Neutrophils # Man 9.5 H Lymphocytes # (Manual) 0.4 L Eosinophils # (Manual) D-Dimer ABG pH POC ABG pCO2 POC ABG pO2 ABG pO2 ABG HCO3 ABG O2 Saturation ABG Base Excess ABG Hemoglobin ABG Oxyhemoglobin ABG Sodium ABG Potassium ABG Chloride ABG Glucose Oxyhemoglobin Carboxyhemoglobin Sodium Potassium Chloride Carbon Dioxide 31 H BUN 21 H Creatinine Glucose 175 H POC Glucose 178 H Lactic Acid Calcium 8.0 L Ferritin AST ALT Lactate Dehydrogenase C-Reactive Protein Total Protein 5.4 L Albumin 3.0 L Triglycerides Arterial Blood Glucose Arterial Blood Ionized Calcium Urine Creatinine Urine Total Protein Vancomycin Trough Coronavirus (PCR) SARS-CoV-2 IgG Ab 07/12/20 07/12/20 07/12/20 04:01 05:47 12:09 WBC RBC Hgb Hct MCH MCHC RDW Plt Count Lymph % (Auto) Lymph # (Auto) Seg Neutrophils % Seg Neuts % (Manual) Lymphocytes % (Manual) Eosinophils % (Manual) Nucleated RBC % Seg Neutrophils # Seg Neutrophils # Man Lymphocytes # (Manual) Eosinophils # (Manual) D-Dimer ABG pH 7.465 H POC ABG pCO2 POC ABG pO2 ABG pO2 ABG HCO3 ABG O2 Saturation ABG Base Excess ABG Hemoglobin 10.6 L ABG Oxyhemoglobin ABG Sodium ABG Potassium ABG Chloride ABG Glucose 177 H Oxyhemoglobin Carboxyhemoglobin Sodium Potassium Chloride Carbon Dioxide BUN Creatinine Glucose POC Glucose 185 H 227 H Lactic Acid Calcium Ferritin AST ALT Lactate Dehydrogenase C-Reactive Protein Total Protein Albumin Triglycerides Arterial Blood Glucose 177 H Arterial Blood Ionized Calcium 4.5 L Urine Creatinine Urine Total Protein Vancomycin Trough Coronavirus (PCR) SARS-CoV-2 IgG Ab 07/12/20 07/12/20 07/13/20 17:34 23:57 05:06 WBC RBC Hgb Hct MCH MCHC RDW Plt Count Lymph % (Auto) Lymph # (Auto) Seg Neutrophils % Seg Neuts % (Manual) Lymphocytes % (Manual) Eosinophils % (Manual) Nucleated RBC % Seg Neutrophils # Seg Neutrophils # Man Lymphocytes # (Manual) Eosinophils # (Manual) D-Dimer ABG pH POC ABG pCO2 POC ABG pO2 ABG pO2 ABG HCO3 ABG O2 Saturation ABG Base Excess ABG Hemoglobin ABG Oxyhemoglobin ABG Sodium ABG Potassium ABG Chloride ABG Glucose Oxyhemoglobin Carboxyhemoglobin Sodium Potassium Chloride Carbon Dioxide BUN Creatinine Glucose POC Glucose 202 H 163 H 166 H Lactic Acid Calcium Ferritin AST ALT Lactate Dehydrogenase C-Reactive Protein Total Protein Albumin Triglycerides Arterial Blood Glucose Arterial Blood Ionized Calcium Urine Creatinine Urine Total Protein Vancomycin Trough Coronavirus (PCR) SARS-CoV-2 IgG Ab 07/13/20 07/13/20 07/13/20 07:20 07:20 07:20 WBC 20.5 H RBC Hgb Hct MCH MCHC RDW Plt Count Lymph % (Auto) Lymph # (Auto) Seg Neutrophils % Seg Neuts % (Manual) 93.0 H Lymphocytes % (Manual) 3.0 L Eosinophils % (Manual) Nucleated RBC % Seg Neutrophils # Seg Neutrophils # Man 19.1 H Lymphocytes # (Manual) 0.6 L Eosinophils # (Manual) D-Dimer 826.36 H ABG pH POC ABG pCO2 POC ABG pO2 ABG pO2 ABG HCO3 ABG O2 Saturation ABG Base Excess ABG Hemoglobin ABG Oxyhemoglobin ABG Sodium ABG Potassium ABG Chloride ABG Glucose Oxyhemoglobin Carboxyhemoglobin Sodium Potassium Chloride Carbon Dioxide 31 H BUN 25 H Creatinine Glucose 163 H POC Glucose Lactic Acid Calcium 8.1 L Ferritin AST ALT Lactate Dehydrogenase 512 H C-Reactive Protein 1.80 H Total Protein 5.8 L Albumin 3.2 L Triglycerides Arterial Blood Glucose Arterial Blood Ionized Calcium Urine Creatinine Urine Total Protein Vancomycin Trough Coronavirus (PCR) SARS-CoV-2 IgG Ab 07/13/20 07/13/20 07/13/20 07:20 11:37 17:20 WBC RBC Hgb Hct MCH MCHC RDW Plt Count Lymph % (Auto) Lymph # (Auto) Seg Neutrophils % Seg Neuts % (Manual) Lymphocytes % (Manual) Eosinophils % (Manual) Nucleated RBC % Seg Neutrophils # Seg Neutrophils # Man Lymphocytes # (Manual) Eosinophils # (Manual) D-Dimer ABG pH POC ABG pCO2 POC ABG pO2 ABG pO2 ABG HCO3 ABG O2 Saturation ABG Base Excess ABG Hemoglobin ABG Oxyhemoglobin ABG Sodium ABG Potassium ABG Chloride ABG Glucose Oxyhemoglobin Carboxyhemoglobin Sodium Potassium Chloride Carbon Dioxide BUN Creatinine Glucose POC Glucose 232 H 210 H Lactic Acid Calcium Ferritin 219.8 H AST ALT Lactate Dehydrogenase C-Reactive Protein Total Protein Albumin Triglycerides Arterial Blood Glucose Arterial Blood Ionized Calcium Urine Creatinine Urine Total Protein Vancomycin Trough Coronavirus (PCR) SARS-CoV-2 IgG Ab 07/13/20 07/13/20 07/14/20 23:57 Unknown 05:22 WBC RBC Hgb Hct MCH MCHC RDW Plt Count Lymph % (Auto) Lymph # (Auto) Seg Neutrophils % Seg Neuts % (Manual) Lymphocytes % (Manual) Eosinophils % (Manual) Nucleated RBC % Seg Neutrophils # Seg Neutrophils # Man Lymphocytes # (Manual) Eosinophils # (Manual) D-Dimer ABG pH 7.341 L POC ABG pCO2 POC ABG pO2 133.0 H ABG pO2 56.5 L ABG HCO3 29.7 H ABG O2 Saturation 89.3 L ABG Base Excess ABG Hemoglobin 11.0 L ABG Oxyhemoglobin ABG Sodium ABG Potassium ABG Chloride ABG Glucose 207 H Oxyhemoglobin 87.7 L Carboxyhemoglobin Sodium Potassium Chloride Carbon Dioxide BUN Creatinine Glucose POC Glucose 190 H Lactic Acid Calcium Ferritin AST ALT Lactate Dehydrogenase C-Reactive Protein Total Protein Albumin Triglycerides Arterial Blood Glucose 207 H Arterial Blood Ionized Calcium 4.5 L Urine Creatinine Urine Total Protein Vancomycin Trough Coronavirus (PCR) SARS-CoV-2 IgG Ab 07/14/20 07/14/20 07/14/20 05:54 11:16 17:50 WBC RBC Hgb Hct MCH MCHC RDW Plt Count Lymph % (Auto) Lymph # (Auto) Seg Neutrophils % Seg Neuts % (Manual) Lymphocytes % (Manual) Eosinophils % (Manual) Nucleated RBC % Seg Neutrophils # Seg Neutrophils # Man Lymphocytes # (Manual) Eosinophils # (Manual) D-Dimer ABG pH POC ABG pCO2 POC ABG pO2 ABG pO2 ABG HCO3 ABG O2 Saturation ABG Base Excess ABG Hemoglobin ABG Oxyhemoglobin ABG Sodium ABG Potassium ABG Chloride ABG Glucose Oxyhemoglobin Carboxyhemoglobin Sodium Potassium Chloride Carbon Dioxide BUN Creatinine Glucose POC Glucose 206 H 196 H 205 H Lactic Acid Calcium Ferritin AST ALT Lactate Dehydrogenase C-Reactive Protein Total Protein Albumin Triglycerides Arterial Blood Glucose Arterial Blood Ionized Calcium Urine Creatinine Urine Total Protein Vancomycin Trough Coronavirus (PCR) SARS-CoV-2 IgG Ab 07/14/20 07/15/20 07/15/20 23:28 03:16 06:12 WBC RBC Hgb Hct MCH MCHC RDW Plt Count Lymph % (Auto) Lymph # (Auto) Seg Neutrophils % Seg Neuts % (Manual) Lymphocytes % (Manual) Eosinophils % (Manual) Nucleated RBC % Seg Neutrophils # Seg Neutrophils # Man Lymphocytes # (Manual) Eosinophils # (Manual) D-Dimer ABG pH POC ABG pCO2 49.2 H POC ABG pO2 120.3 H ABG pO2 ABG HCO3 ABG O2 Saturation ABG Base Excess ABG Hemoglobin 9.5 L ABG Oxyhemoglobin ABG Sodium ABG Potassium ABG Chloride ABG Glucose 148 H Oxyhemoglobin Carboxyhemoglobin Sodium Potassium Chloride Carbon Dioxide BUN Creatinine Glucose POC Glucose 160 H 178 H Lactic Acid Calcium Ferritin AST ALT Lactate Dehydrogenase C-Reactive Protein Total Protein Albumin Triglycerides Arterial Blood Glucose 148 H Arterial Blood Ionized Calcium Urine Creatinine Urine Total Protein Vancomycin Trough Coronavirus (PCR) SARS-CoV-2 IgG Ab 07/15/20 07/15/20 07/15/20 09:00 12:32 14:30 WBC RBC Hgb Hct MCH MCHC RDW Plt Count Lymph % (Auto) Lymph # (Auto) Seg Neutrophils % Seg Neuts % (Manual) Lymphocytes % (Manual) Eosinophils % (Manual) Nucleated RBC % Seg Neutrophils # Seg Neutrophils # Man Lymphocytes # (Manual) Eosinophils # (Manual) D-Dimer ABG pH POC ABG pCO2 POC ABG pO2 ABG pO2 ABG HCO3 ABG O2 Saturation ABG Base Excess ABG Hemoglobin ABG Oxyhemoglobin ABG Sodium ABG Potassium ABG Chloride ABG Glucose Oxyhemoglobin Carboxyhemoglobin Sodium Potassium Chloride Carbon Dioxide BUN Creatinine Glucose POC Glucose 173 H Lactic Acid Calcium Ferritin AST ALT Lactate Dehydrogenase 531 H C-Reactive Protein Total Protein Albumin Triglycerides Arterial Blood Glucose Arterial Blood Ionized Calcium Urine Creatinine Urine Total Protein Vancomycin Trough Coronavirus (PCR) SARS-CoV-2 IgG Ab Reactive A 07/15/20 07/15/20 07/16/20 18:24 23:35 04:03 WBC RBC Hgb Hct MCH MCHC RDW Plt Count Lymph % (Auto) Lymph # (Auto) Seg Neutrophils % Seg Neuts % (Manual) Lymphocytes % (Manual) Eosinophils % (Manual) Nucleated RBC % Seg Neutrophils # Seg Neutrophils # Man Lymphocytes # (Manual) Eosinophils # (Manual) D-Dimer ABG pH POC ABG pCO2 POC ABG pO2 ABG pO2 72.7 L ABG HCO3 35.5 H ABG O2 Saturation ABG Base Excess 9.4 H ABG Hemoglobin 10.6 L ABG Oxyhemoglobin ABG Sodium ABG Potassium ABG Chloride ABG Glucose Oxyhemoglobin 93.6 L Carboxyhemoglobin Sodium Potassium Chloride Carbon Dioxide BUN Creatinine Glucose POC Glucose 173 H 181 H Lactic Acid Calcium Ferritin AST ALT Lactate Dehydrogenase C-Reactive Protein Total Protein Albumin Triglycerides Arterial Blood Glucose Arterial Blood Ionized Calcium Urine Creatinine Urine Total Protein Vancomycin Trough Coronavirus (PCR) SARS-CoV-2 IgG Ab 07/16/20 07/16/20 07/16/20 05:35 09:00 09:00 WBC 16.5 H RBC 3.59 L Hgb Hct MCH MCHC RDW Plt Count Lymph % (Auto) Lymph # (Auto) Seg Neutrophils % Seg Neuts % (Manual) 96.0 H Lymphocytes % (Manual) 3.0 L Eosinophils % (Manual) Nucleated RBC % Seg Neutrophils # Seg Neutrophils # Man 15.8 H Lymphocytes # (Manual) 0.5 L Eosinophils # (Manual) D-Dimer ABG pH POC ABG pCO2 POC ABG pO2 ABG pO2 ABG HCO3 ABG O2 Saturation ABG Base Excess ABG Hemoglobin ABG Oxyhemoglobin ABG Sodium ABG Potassium ABG Chloride ABG Glucose Oxyhemoglobin Carboxyhemoglobin Sodium Potassium Chloride Carbon Dioxide 39 H D BUN 25 H Creatinine 0.4 L Glucose 167 H POC Glucose 129 H Lactic Acid Calcium 8.3 L Ferritin AST ALT Lactate Dehydrogenase C-Reactive Protein Total Protein Albumin Triglycerides Arterial Blood Glucose Arterial Blood Ionized Calcium Urine Creatinine Urine Total Protein Vancomycin Trough Coronavirus (PCR) SARS-CoV-2 IgG Ab 07/16/20 07/16/20 07/17/20 12:32 18:28 00:09 WBC RBC Hgb Hct MCH MCHC RDW Plt Count Lymph % (Auto) Lymph # (Auto) Seg Neutrophils % Seg Neuts % (Manual) Lymphocytes % (Manual) Eosinophils % (Manual) Nucleated RBC % Seg Neutrophils # Seg Neutrophils # Man Lymphocytes # (Manual) Eosinophils # (Manual) D-Dimer ABG pH POC ABG pCO2 POC ABG pO2 ABG pO2 ABG HCO3 ABG O2 Saturation ABG Base Excess ABG Hemoglobin ABG Oxyhemoglobin ABG Sodium ABG Potassium ABG Chloride ABG Glucose Oxyhemoglobin Carboxyhemoglobin Sodium Potassium Chloride Carbon Dioxide BUN Creatinine Glucose POC Glucose 187 H 174 H 184 H Lactic Acid Calcium Ferritin AST ALT Lactate Dehydrogenase C-Reactive Protein Total Protein Albumin Triglycerides Arterial Blood Glucose Arterial Blood Ionized Calcium Urine Creatinine Urine Total Protein Vancomycin Trough Coronavirus (PCR) SARS-CoV-2 IgG Ab 07/17/20 07/17/20 07/17/20 04:30 05:47 13:03 WBC RBC Hgb Hct MCH MCHC RDW Plt Count Lymph % (Auto) Lymph # (Auto) Seg Neutrophils % Seg Neuts % (Manual) Lymphocytes % (Manual) Eosinophils % (Manual) Nucleated RBC % Seg Neutrophils # Seg Neutrophils # Man Lymphocytes # (Manual) Eosinophils # (Manual) D-Dimer ABG pH POC ABG pCO2 POC ABG pO2 ABG pO2 ABG HCO3 38.1 H ABG O2 Saturation ABG Base Excess 11.3 H ABG Hemoglobin 10.5 L ABG Oxyhemoglobin ABG Sodium ABG Potassium ABG Chloride ABG Glucose Oxyhemoglobin Carboxyhemoglobin Sodium Potassium Chloride Carbon Dioxide BUN Creatinine Glucose POC Glucose 135 H 210 H Lactic Acid Calcium Ferritin AST ALT Lactate Dehydrogenase C-Reactive Protein Total Protein Albumin Triglycerides Arterial Blood Glucose Arterial Blood Ionized Calcium Urine Creatinine Urine Total Protein Vancomycin Trough Coronavirus (PCR) SARS-CoV-2 IgG Ab 07/17/20 07/17/20 07/18/20 16:50 23:39 04:01 WBC RBC Hgb Hct MCH MCHC RDW Plt Count Lymph % (Auto) Lymph # (Auto) Seg Neutrophils % Seg Neuts % (Manual) Lymphocytes % (Manual) Eosinophils % (Manual) Nucleated RBC % Seg Neutrophils # Seg Neutrophils # Man Lymphocytes # (Manual) Eosinophils # (Manual) D-Dimer ABG pH POC ABG pCO2 56.8 H POC ABG pO2 61.9 L ABG pO2 ABG HCO3 ABG O2 Saturation ABG Base Excess ABG Hemoglobin 11.7 L ABG Oxyhemoglobin ABG Sodium 134.2 L ABG Potassium 4.7 H ABG Chloride 97.0 L ABG Glucose 173 H Oxyhemoglobin Carboxyhemoglobin Sodium Potassium Chloride Carbon Dioxide BUN Creatinine Glucose POC Glucose 193 H 163 H Lactic Acid Calcium Ferritin AST ALT Lactate Dehydrogenase C-Reactive Protein Total Protein Albumin Triglycerides Arterial Blood Glucose 173 H Arterial Blood Ionized Calcium Urine Creatinine Urine Total Protein Vancomycin Trough Coronavirus (PCR) SARS-CoV-2 IgG Ab 07/18/20 07/18/20 07/18/20 05:41 12:03 17:26 WBC RBC Hgb Hct MCH MCHC RDW Plt Count Lymph % (Auto) Lymph # (Auto) Seg Neutrophils % Seg Neuts % (Manual) Lymphocytes % (Manual) Eosinophils % (Manual) Nucleated RBC % Seg Neutrophils # Seg Neutrophils # Man Lymphocytes # (Manual) Eosinophils # (Manual) D-Dimer ABG pH POC ABG pCO2 POC ABG pO2 ABG pO2 ABG HCO3 ABG O2 Saturation ABG Base Excess ABG Hemoglobin ABG Oxyhemoglobin ABG Sodium ABG Potassium ABG Chloride ABG Glucose Oxyhemoglobin Carboxyhemoglobin Sodium Potassium Chloride Carbon Dioxide BUN Creatinine Glucose POC Glucose 153 H 177 H 160 H Lactic Acid Calcium Ferritin AST ALT Lactate Dehydrogenase C-Reactive Protein Total Protein Albumin Triglycerides Arterial Blood Glucose Arterial Blood Ionized Calcium Urine Creatinine Urine Total Protein Vancomycin Trough Coronavirus (PCR) SARS-CoV-2 IgG Ab 07/18/20 07/19/20 07/19/20 23:58 04:15 05:05 WBC RBC Hgb Hct MCH MCHC RDW Plt Count Lymph % (Auto) Lymph # (Auto) Seg Neutrophils % Seg Neuts % (Manual) Lymphocytes % (Manual) Eosinophils % (Manual) Nucleated RBC % Seg Neutrophils # Seg Neutrophils # Man Lymphocytes # (Manual) Eosinophils # (Manual) D-Dimer ABG pH 7.465 H POC ABG pCO2 49.1 H POC ABG pO2 49.4 L ABG pO2 ABG HCO3 ABG O2 Saturation ABG Base Excess ABG Hemoglobin 11.6 L ABG Oxyhemoglobin ABG Sodium 132.3 L ABG Potassium ABG Chloride 97.0 L ABG Glucose 148 H Oxyhemoglobin Carboxyhemoglobin Sodium Potassium Chloride Carbon Dioxide BUN Creatinine Glucose POC Glucose 144 H 117 H Lactic Acid Calcium Ferritin AST ALT Lactate Dehydrogenase C-Reactive Protein Total Protein Albumin Triglycerides Arterial Blood Glucose 148 H Arterial Blood Ionized Calcium Urine Creatinine Urine Total Protein Vancomycin Trough Coronavirus (PCR) SARS-CoV-2 IgG Ab 07/19/20 07/19/20 07/19/20 08:30 08:30 13:21 WBC 17.2 H RBC 3.59 L Hgb Hct MCH MCHC RDW Plt Count Lymph % (Auto) Lymph # (Auto) Seg Neutrophils % Seg Neuts % (Manual) Lymphocytes % (Manual) Eosinophils % (Manual) Nucleated RBC % Seg Neutrophils # Seg Neutrophils # Man Lymphocytes # (Manual) Eosinophils # (Manual) D-Dimer ABG pH POC ABG pCO2 POC ABG pO2 ABG pO2 ABG HCO3 ABG O2 Saturation ABG Base Excess ABG Hemoglobin ABG Oxyhemoglobin ABG Sodium ABG Potassium ABG Chloride ABG Glucose Oxyhemoglobin Carboxyhemoglobin Sodium Potassium Chloride 95.7 L Carbon Dioxide 37 H BUN 20 H Creatinine 0.4 L Glucose 125 H POC Glucose 137 H Lactic Acid Calcium 8.1 L Ferritin AST ALT Lactate Dehydrogenase C-Reactive Protein Total Protein Albumin Triglycerides Arterial Blood Glucose Arterial Blood Ionized Calcium Urine Creatinine Urine Total Protein Vancomycin Trough Coronavirus (PCR) SARS-CoV-2 IgG Ab 07/19/20 07/19/20 07/20/20 16:29 17:28 00:25 WBC RBC Hgb Hct MCH MCHC RDW Plt Count Lymph % (Auto) Lymph # (Auto) Seg Neutrophils % Seg Neuts % (Manual) Lymphocytes % (Manual) Eosinophils % (Manual) Nucleated RBC % Seg Neutrophils # Seg Neutrophils # Man Lymphocytes # (Manual) Eosinophils # (Manual) D-Dimer ABG pH POC ABG pCO2 53.4 H POC ABG pO2 71.0 L ABG pO2 ABG HCO3 ABG O2 Saturation ABG Base Excess ABG Hemoglobin 11.2 L ABG Oxyhemoglobin 93.6 L ABG Sodium 130.9 L ABG Potassium ABG Chloride 95.0 L ABG Glucose 188 H Oxyhemoglobin Carboxyhemoglobin Sodium Potassium Chloride Carbon Dioxide BUN Creatinine Glucose POC Glucose 174 H 188 H Lactic Acid Calcium Ferritin AST ALT Lactate Dehydrogenase C-Reactive Protein Total Protein Albumin Triglycerides Arterial Blood Glucose 188 H Arterial Blood Ionized Calcium 4.4 L Urine Creatinine Urine Total Protein Vancomycin Trough Coronavirus (PCR) SARS-CoV-2 IgG Ab 07/20/20 07/20/20 07/20/20 04:14 05:23 12:12 WBC RBC Hgb Hct MCH MCHC RDW Plt Count Lymph % (Auto) Lymph # (Auto) Seg Neutrophils % Seg Neuts % (Manual) Lymphocytes % (Manual) Eosinophils % (Manual) Nucleated RBC % Seg Neutrophils # Seg Neutrophils # Man Lymphocytes # (Manual) Eosinophils # (Manual) D-Dimer ABG pH POC ABG pCO2 52.7 H POC ABG pO2 59.5 L ABG pO2 ABG HCO3 ABG O2 Saturation ABG Base Excess ABG Hemoglobin 10.6 L ABG Oxyhemoglobin ABG Sodium 134.4 L ABG Potassium ABG Chloride ABG Glucose 176 H Oxyhemoglobin Carboxyhemoglobin Sodium Potassium Chloride Carbon Dioxide BUN Creatinine Glucose POC Glucose 212 H 190 H Lactic Acid Calcium Ferritin AST ALT Lactate Dehydrogenase C-Reactive Protein Total Protein Albumin Triglycerides Arterial Blood Glucose 176 H Arterial Blood Ionized Calcium 4.5 L Urine Creatinine Urine Total Protein Vancomycin Trough Coronavirus (PCR) SARS-CoV-2 IgG Ab 07/20/20 07/21/20 07/21/20 16:59 00:01 04:30 WBC RBC Hgb Hct MCH MCHC RDW Plt Count Lymph % (Auto) Lymph # (Auto) Seg Neutrophils % Seg Neuts % (Manual) Lymphocytes % (Manual) Eosinophils % (Manual) Nucleated RBC % Seg Neutrophils # Seg Neutrophils # Man Lymphocytes # (Manual) Eosinophils # (Manual) D-Dimer ABG pH 7.468 H POC ABG pCO2 POC ABG pO2 63.3 L ABG pO2 ABG HCO3 ABG O2 Saturation ABG Base Excess ABG Hemoglobin 11 L ABG Oxyhemoglobin ABG Sodium 135.0 L ABG Potassium ABG Chloride ABG Glucose 204 H Oxyhemoglobin Carboxyhemoglobin Sodium Potassium Chloride Carbon Dioxide BUN Creatinine Glucose POC Glucose 201 H 177 H Lactic Acid Calcium Ferritin AST ALT Lactate Dehydrogenase C-Reactive Protein Total Protein Albumin Triglycerides Arterial Blood Glucose 204 H Arterial Blood Ionized Calcium 4.5 L Urine Creatinine Urine Total Protein Vancomycin Trough Coronavirus (PCR) SARS-CoV-2 IgG Ab 07/21/20 07/21/20 07/21/20 05:26 11:50 17:16 WBC RBC Hgb Hct MCH MCHC RDW Plt Count Lymph % (Auto) Lymph # (Auto) Seg Neutrophils % Seg Neuts % (Manual) Lymphocytes % (Manual) Eosinophils % (Manual) Nucleated RBC % Seg Neutrophils # Seg Neutrophils # Man Lymphocytes # (Manual) Eosinophils # (Manual) D-Dimer ABG pH POC ABG pCO2 POC ABG pO2 ABG pO2 ABG HCO3 ABG O2 Saturation ABG Base Excess ABG Hemoglobin ABG Oxyhemoglobin ABG Sodium ABG Potassium ABG Chloride ABG Glucose Oxyhemoglobin Carboxyhemoglobin Sodium Potassium Chloride Carbon Dioxide BUN Creatinine Glucose POC Glucose 175 H 157 H 148 H Lactic Acid Calcium Ferritin AST ALT Lactate Dehydrogenase C-Reactive Protein Total Protein Albumin Triglycerides Arterial Blood Glucose Arterial Blood Ionized Calcium Urine Creatinine Urine Total Protein Vancomycin Trough Coronavirus (PCR) SARS-CoV-2 IgG Ab 07/22/20 07/22/20 07/22/20 00:01 03:26 05:16 WBC RBC Hgb Hct MCH MCHC RDW Plt Count Lymph % (Auto) Lymph # (Auto) Seg Neutrophils % Seg Neuts % (Manual) Lymphocytes % (Manual) Eosinophils % (Manual) Nucleated RBC % Seg Neutrophils # Seg Neutrophils # Man Lymphocytes # (Manual) Eosinophils # (Manual) D-Dimer ABG pH POC ABG pCO2 POC ABG pO2 54.2 L ABG pO2 ABG HCO3 ABG O2 Saturation ABG Base Excess ABG Hemoglobin 10.9 L ABG Oxyhemoglobin ABG Sodium 133.7 L ABG Potassium ABG Chloride ABG Glucose 217 H Oxyhemoglobin Carboxyhemoglobin Sodium Potassium Chloride Carbon Dioxide BUN Creatinine Glucose POC Glucose 172 H 182 H Lactic Acid Calcium Ferritin AST ALT Lactate Dehydrogenase C-Reactive Protein Total Protein Albumin Triglycerides Arterial Blood Glucose 217 H Arterial Blood Ionized Calcium 4.5 L Urine Creatinine Urine Total Protein Vancomycin Trough Coronavirus (PCR) SARS-CoV-2 IgG Ab 07/22/20 07/22/20 07/23/20 11:43 17:08 04:00 WBC 11.6 H RBC 3.54 L Hgb Hct MCH MCHC RDW Plt Count Lymph % (Auto) Lymph # (Auto) Seg Neutrophils % Seg Neuts % (Manual) 94.0 H Lymphocytes % (Manual) 5.0 L Eosinophils % (Manual) Nucleated RBC % Seg Neutrophils # Seg Neutrophils # Man 10.9 H Lymphocytes # (Manual) 0.6 L Eosinophils # (Manual) D-Dimer ABG pH POC ABG pCO2 POC ABG pO2 ABG pO2 ABG HCO3 ABG O2 Saturation ABG Base Excess ABG Hemoglobin ABG Oxyhemoglobin ABG Sodium ABG Potassium ABG Chloride ABG Glucose Oxyhemoglobin Carboxyhemoglobin Sodium Potassium Chloride Carbon Dioxide BUN Creatinine Glucose POC Glucose 159 H 163 H Lactic Acid Calcium Ferritin AST ALT Lactate Dehydrogenase C-Reactive Protein Total Protein Albumin Triglycerides Arterial Blood Glucose Arterial Blood Ionized Calcium Urine Creatinine Urine Total Protein Vancomycin Trough Coronavirus (PCR) SARS-CoV-2 IgG Ab 07/23/20 07/23/20 07/23/20 04:00 04:53 04:54 WBC RBC Hgb Hct MCH MCHC RDW Plt Count Lymph % (Auto) Lymph # (Auto) Seg Neutrophils % Seg Neuts % (Manual) Lymphocytes % (Manual) Eosinophils % (Manual) Nucleated RBC % Seg Neutrophils # Seg Neutrophils # Man Lymphocytes # (Manual) Eosinophils # (Manual) D-Dimer ABG pH 7.453 H POC ABG pCO2 POC ABG pO2 ABG pO2 ABG HCO3 32.4 H ABG O2 Saturation ABG Base Excess 7.5 H ABG Hemoglobin 10.7 L ABG Oxyhemoglobin ABG Sodium ABG Potassium ABG Chloride ABG Glucose Oxyhemoglobin Carboxyhemoglobin Sodium Potassium Chloride Carbon Dioxide 35 H BUN Creatinine 0.4 L Glucose 112 H POC Glucose 169 H Lactic Acid Calcium 8.2 L Ferritin AST ALT Lactate Dehydrogenase C-Reactive Protein Total Protein Albumin Triglycerides Arterial Blood Glucose Arterial Blood Ionized Calcium Urine Creatinine Urine Total Protein Vancomycin Trough Coronavirus (PCR) SARS-CoV-2 IgG Ab 07/23/20 07/23/20 07/23/20 11:50 23:19 Unknown WBC RBC Hgb Hct MCH MCHC RDW Plt Count Lymph % (Auto) Lymph # (Auto) Seg Neutrophils % Seg Neuts % (Manual) Lymphocytes % (Manual) Eosinophils % (Manual) Nucleated RBC % Seg Neutrophils # Seg Neutrophils # Man Lymphocytes # (Manual) Eosinophils # (Manual) D-Dimer ABG pH POC ABG pCO2 POC ABG pO2 ABG pO2 ABG HCO3 ABG O2 Saturation ABG Base Excess ABG Hemoglobin ABG Oxyhemoglobin ABG Sodium ABG Potassium ABG Chloride ABG Glucose Oxyhemoglobin Carboxyhemoglobin Sodium Potassium Chloride Carbon Dioxide BUN Creatinine Glucose POC Glucose 118 H 168 H Lactic Acid Calcium Ferritin AST ALT Lactate Dehydrogenase C-Reactive Protein Total Protein Albumin Triglycerides Arterial Blood Glucose Arterial Blood Ionized Calcium Urine Creatinine Urine Total Protein Vancomycin Trough Coronavirus (PCR) Positive A SARS-CoV-2 IgG Ab 07/24/20 07/24/20 07/24/20 04:11 05:37 11:42 WBC RBC Hgb Hct MCH MCHC RDW Plt Count Lymph % (Auto) Lymph # (Auto) Seg Neutrophils % Seg Neuts % (Manual) Lymphocytes % (Manual) Eosinophils % (Manual) Nucleated RBC % Seg Neutrophils # Seg Neutrophils # Man Lymphocytes # (Manual) Eosinophils # (Manual) D-Dimer ABG pH POC ABG pCO2 POC ABG pO2 ABG pO2 54.4 L ABG HCO3 34.3 H ABG O2 Saturation 89.0 L ABG Base Excess 8.5 H ABG Hemoglobin 11.0 L ABG Oxyhemoglobin ABG Sodium ABG Potassium ABG Chloride ABG Glucose Oxyhemoglobin 87.0 L Carboxyhemoglobin Sodium Potassium Chloride Carbon Dioxide BUN Creatinine Glucose POC Glucose 115 H 166 H Lactic Acid Calcium Ferritin AST ALT Lactate Dehydrogenase C-Reactive Protein Total Protein Albumin Triglycerides Arterial Blood Glucose Arterial Blood Ionized Calcium Urine Creatinine Urine Total Protein Vancomycin Trough Coronavirus (PCR) SARS-CoV-2 IgG Ab 07/24/20 07/24/20 07/25/20 17:39 23:38 03:53 WBC RBC Hgb Hct MCH MCHC RDW Plt Count Lymph % (Auto) Lymph # (Auto) Seg Neutrophils % Seg Neuts % (Manual) Lymphocytes % (Manual) Eosinophils % (Manual) Nucleated RBC % Seg Neutrophils # Seg Neutrophils # Man Lymphocytes # (Manual) Eosinophils # (Manual) D-Dimer ABG pH POC ABG pCO2 POC ABG pO2 ABG pO2 175.9 H ABG HCO3 34.0 H ABG O2 Saturation 99.1 H ABG Base Excess 8.2 H ABG Hemoglobin 10.6 L ABG Oxyhemoglobin ABG Sodium ABG Potassium ABG Chloride ABG Glucose Oxyhemoglobin Carboxyhemoglobin Sodium Potassium Chloride Carbon Dioxide BUN Creatinine Glucose POC Glucose 150 H 139 H Lactic Acid Calcium Ferritin AST ALT Lactate Dehydrogenase C-Reactive Protein Total Protein Albumin Triglycerides Arterial Blood Glucose Arterial Blood Ionized Calcium Urine Creatinine Urine Total Protein Vancomycin Trough Coronavirus (PCR) SARS-CoV-2 IgG Ab 07/25/20 07/25/20 07/25/20 05:47 12:09 23:46 WBC RBC Hgb Hct MCH MCHC RDW Plt Count Lymph % (Auto) Lymph # (Auto) Seg Neutrophils % Seg Neuts % (Manual) Lymphocytes % (Manual) Eosinophils % (Manual) Nucleated RBC % Seg Neutrophils # Seg Neutrophils # Man Lymphocytes # (Manual) Eosinophils # (Manual) D-Dimer ABG pH POC ABG pCO2 POC ABG pO2 ABG pO2 ABG HCO3 ABG O2 Saturation ABG Base Excess ABG Hemoglobin ABG Oxyhemoglobin ABG Sodium ABG Potassium ABG Chloride ABG Glucose Oxyhemoglobin Carboxyhemoglobin Sodium Potassium Chloride Carbon Dioxide BUN Creatinine Glucose POC Glucose 144 H 152 H 116 H Lactic Acid Calcium Ferritin AST ALT Lactate Dehydrogenase C-Reactive Protein Total Protein Albumin Triglycerides Arterial Blood Glucose Arterial Blood Ionized Calcium Urine Creatinine Urine Total Protein Vancomycin Trough Coronavirus (PCR) SARS-CoV-2 IgG Ab 07/26/20 07/26/20 07/26/20 03:48 05:36 11:28 WBC RBC Hgb Hct MCH MCHC RDW Plt Count Lymph % (Auto) Lymph # (Auto) Seg Neutrophils % Seg Neuts % (Manual) Lymphocytes % (Manual) Eosinophils % (Manual) Nucleated RBC % Seg Neutrophils # Seg Neutrophils # Man Lymphocytes # (Manual) Eosinophils # (Manual) D-Dimer ABG pH POC ABG pCO2 POC ABG pO2 ABG pO2 73.4 L ABG HCO3 35.0 H ABG O2 Saturation ABG Base Excess 8.3 H ABG Hemoglobin 9.8 L ABG Oxyhemoglobin ABG Sodium ABG Potassium ABG Chloride ABG Glucose Oxyhemoglobin 93.7 L Carboxyhemoglobin Sodium Potassium Chloride Carbon Dioxide BUN Creatinine Glucose POC Glucose 136 H 145 H Lactic Acid Calcium Ferritin AST ALT Lactate Dehydrogenase C-Reactive Protein Total Protein Albumin Triglycerides Arterial Blood Glucose Arterial Blood Ionized Calcium Urine Creatinine Urine Total Protein Vancomycin Trough Coronavirus (PCR) SARS-CoV-2 IgG Ab 07/26/20 07/26/20 07/26/20 14:23 17:19 23:33 WBC 12.0 H RBC 3.12 L Hgb 9.5 L Hct 28.6 L MCH MCHC RDW Plt Count Lymph % (Auto) 4.2 L Lymph # (Auto) 0.5 L Seg Neutrophils % 89.8 H Seg Neuts % (Manual) Lymphocytes % (Manual) Eosinophils % (Manual) Nucleated RBC % Seg Neutrophils # 10.8 H Seg Neutrophils # Man Lymphocytes # (Manual) Eosinophils # (Manual) D-Dimer ABG pH POC ABG pCO2 POC ABG pO2 ABG pO2 ABG HCO3 ABG O2 Saturation ABG Base Excess ABG Hemoglobin ABG Oxyhemoglobin ABG Sodium ABG Potassium ABG Chloride ABG Glucose Oxyhemoglobin Carboxyhemoglobin Sodium Potassium Chloride Carbon Dioxide BUN Creatinine Glucose POC Glucose 202 H 122 H Lactic Acid Calcium Ferritin AST ALT Lactate Dehydrogenase C-Reactive Protein Total Protein Albumin Triglycerides Arterial Blood Glucose Arterial Blood Ionized Calcium Urine Creatinine Urine Total Protein Vancomycin Trough Coronavirus (PCR) SARS-CoV-2 IgG Ab 07/27/20 07/27/20 07/27/20 04:30 05:54 12:06 WBC RBC Hgb Hct MCH MCHC RDW Plt Count Lymph % (Auto) Lymph # (Auto) Seg Neutrophils % Seg Neuts % (Manual) Lymphocytes % (Manual) Eosinophils % (Manual) Nucleated RBC % Seg Neutrophils # Seg Neutrophils # Man Lymphocytes # (Manual) Eosinophils # (Manual) D-Dimer ABG pH POC ABG pCO2 POC ABG pO2 ABG pO2 49.0 L ABG HCO3 35.7 H ABG O2 Saturation 87.6 L ABG Base Excess 10.1 H ABG Hemoglobin 11.5 L ABG Oxyhemoglobin ABG Sodium ABG Potassium ABG Chloride ABG Glucose Oxyhemoglobin 85.4 L Carboxyhemoglobin Sodium Potassium Chloride Carbon Dioxide BUN Creatinine Glucose POC Glucose 164 H 149 H Lactic Acid Calcium Ferritin AST ALT Lactate Dehydrogenase C-Reactive Protein Total Protein Albumin Triglycerides Arterial Blood Glucose Arterial Blood Ionized Calcium Urine Creatinine Urine Total Protein Vancomycin Trough Coronavirus (PCR) SARS-CoV-2 IgG Ab 07/27/20 07/27/20 07/27/20 13:00 14:18 14:18 WBC 12.2 H RBC 3.33 L Hgb 10.0 L Hct MCH MCHC RDW Plt Count Lymph % (Auto) Lymph # (Auto) Seg Neutrophils % Seg Neuts % (Manual) 90.0 H Lymphocytes % (Manual) 7.0 L Eosinophils % (Manual) Nucleated RBC % Seg Neutrophils # Seg Neutrophils # Man 11.0 H Lymphocytes # (Manual) 0.9 L Eosinophils # (Manual) D-Dimer ABG pH 7.313 L POC ABG pCO2 POC ABG pO2 ABG pO2 107.5 H ABG HCO3 37.6 H ABG O2 Saturation ABG Base Excess 8.1 H ABG Hemoglobin 10.1 L ABG Oxyhemoglobin ABG Sodium ABG Potassium ABG Chloride ABG Glucose Oxyhemoglobin Carboxyhemoglobin Sodium Potassium Chloride 97.6 L Carbon Dioxide 35 H BUN 18 H Creatinine Glucose 135 H POC Glucose Lactic Acid Calcium 8.3 L Ferritin AST ALT Lactate Dehydrogenase C-Reactive Protein Total Protein Albumin Triglycerides Arterial Blood Glucose Arterial Blood Ionized Calcium Urine Creatinine Urine Total Protein Vancomycin Trough Coronavirus (PCR) SARS-CoV-2 IgG Ab 07/27/20 07/27/20 07/28/20 17:09 23:14 04:15 WBC RBC Hgb Hct MCH MCHC RDW Plt Count Lymph % (Auto) Lymph # (Auto) Seg Neutrophils % Seg Neuts % (Manual) Lymphocytes % (Manual) Eosinophils % (Manual) Nucleated RBC % Seg Neutrophils # Seg Neutrophils # Man Lymphocytes # (Manual) Eosinophils # (Manual) D-Dimer ABG pH 7.317 L POC ABG pCO2 POC ABG pO2 ABG pO2 130.3 H ABG HCO3 40.9 H ABG O2 Saturation ABG Base Excess 13.5 H ABG Hemoglobin 5.8 L ABG Oxyhemoglobin ABG Sodium ABG Potassium ABG Chloride ABG Glucose Oxyhemoglobin Carboxyhemoglobin Sodium Potassium Chloride Carbon Dioxide BUN Creatinine Glucose POC Glucose 115 H 139 H Lactic Acid Calcium Ferritin AST ALT Lactate Dehydrogenase C-Reactive Protein Total Protein Albumin Triglycerides Arterial Blood Glucose Arterial Blood Ionized Calcium Urine Creatinine Urine Total Protein Vancomycin Trough Coronavirus (PCR) SARS-CoV-2 IgG Ab 07/28/20 07/28/20 07/28/20 05:34 09:20 09:20 WBC RBC 2.89 L Hgb 9.5 L Hct 26.6 L MCH 33 H MCHC 36 H RDW Plt Count 123 L Lymph % (Auto) Lymph # (Auto) Seg Neutrophils % Seg Neuts % (Manual) 89.0 H Lymphocytes % (Manual) 5.0 L Eosinophils % (Manual) Nucleated RBC % Seg Neutrophils # Seg Neutrophils # Man 8.6 H Lymphocytes # (Manual) 0.5 L Eosinophils # (Manual) D-Dimer ABG pH POC ABG pCO2 POC ABG pO2 ABG pO2 ABG HCO3 ABG O2 Saturation ABG Base Excess ABG Hemoglobin ABG Oxyhemoglobin ABG Sodium ABG Potassium ABG Chloride ABG Glucose Oxyhemoglobin Carboxyhemoglobin Sodium 134 L Potassium Chloride 95.6 L Carbon Dioxide 39 H BUN Creatinine 0.3 L Glucose 131 H POC Glucose 130 H Lactic Acid Calcium 7.9 L Ferritin AST ALT Lactate Dehydrogenase C-Reactive Protein Total Protein Albumin Triglycerides Arterial Blood Glucose Arterial Blood Ionized Calcium Urine Creatinine Urine Total Protein Vancomycin Trough Coronavirus (PCR) SARS-CoV-2 IgG Ab 07/28/20 07/28/20 07/28/20 11:50 18:36 23:22 WBC RBC Hgb Hct MCH MCHC RDW Plt Count Lymph % (Auto) Lymph # (Auto) Seg Neutrophils % Seg Neuts % (Manual) Lymphocytes % (Manual) Eosinophils % (Manual) Nucleated RBC % Seg Neutrophils # Seg Neutrophils # Man Lymphocytes # (Manual) Eosinophils # (Manual) D-Dimer ABG pH POC ABG pCO2 POC ABG pO2 ABG pO2 ABG HCO3 ABG O2 Saturation ABG Base Excess ABG Hemoglobin ABG Oxyhemoglobin ABG Sodium ABG Potassium ABG Chloride ABG Glucose Oxyhemoglobin Carboxyhemoglobin Sodium Potassium Chloride Carbon Dioxide BUN Creatinine Glucose POC Glucose 128 H 119 H 122 H Lactic Acid Calcium Ferritin AST ALT Lactate Dehydrogenase C-Reactive Protein Total Protein Albumin Triglycerides Arterial Blood Glucose Arterial Blood Ionized Calcium Urine Creatinine Urine Total Protein Vancomycin Trough Coronavirus (PCR) SARS-CoV-2 IgG Ab 07/29/20 07/29/20 07/29/20 03:18 07:54 07:54 WBC 11.1 H RBC 3.49 L Hgb Hct MCH MCHC RDW Plt Count 139 L Lymph % (Auto) Lymph # (Auto) Seg Neutrophils % Seg Neuts % (Manual) 90.0 H Lymphocytes % (Manual) 1.0 L Eosinophils % (Manual) 5.0 H Nucleated RBC % Seg Neutrophils # Seg Neutrophils # Man 10.0 H Lymphocytes # (Manual) 0.1 L Eosinophils # (Manual) 0.6 H D-Dimer ABG pH POC ABG pCO2 69.5 H POC ABG pO2 109.3 H ABG pO2 ABG HCO3 ABG O2 Saturation ABG Base Excess ABG Hemoglobin 10.8 L ABG Oxyhemoglobin ABG Sodium ABG Potassium ABG Chloride 95.0 L ABG Glucose 138 H Oxyhemoglobin Carboxyhemoglobin Sodium Potassium Chloride 94.5 L Carbon Dioxide 40 H BUN Creatinine 0.5 L D Glucose 104 H POC Glucose Lactic Acid Calcium Ferritin AST ALT Lactate Dehydrogenase C-Reactive Protein Total Protein Albumin Triglycerides Arterial Blood Glucose 138 H Arterial Blood Ionized Calcium Urine Creatinine Urine Total Protein Vancomycin Trough Coronavirus (PCR) SARS-CoV-2 IgG Ab 07/29/20 07/29/20 07/29/20 11:05 18:17 19:41 WBC RBC Hgb Hct MCH MCHC RDW Plt Count Lymph % (Auto) Lymph # (Auto) Seg Neutrophils % Seg Neuts % (Manual) Lymphocytes % (Manual) Eosinophils % (Manual) Nucleated RBC % Seg Neutrophils # Seg Neutrophils # Man Lymphocytes # (Manual) Eosinophils # (Manual) D-Dimer ABG pH 7.305 L POC ABG pCO2 73.3 H 66.7 H POC ABG pO2 28.2 L 32.7 L ABG pO2 ABG HCO3 ABG O2 Saturation ABG Base Excess ABG Hemoglobin 11.8 L 11.5 L ABG Oxyhemoglobin ABG Sodium ABG Potassium ABG Chloride 94.0 L 95.0 L ABG Glucose 207 H 141 H Oxyhemoglobin Carboxyhemoglobin Sodium Potassium Chloride Carbon Dioxide BUN Creatinine Glucose POC Glucose 113 H Lactic Acid Calcium Ferritin AST ALT Lactate Dehydrogenase C-Reactive Protein Total Protein Albumin Triglycerides Arterial Blood Glucose 207 H 141 H Arterial Blood Ionized Calcium 4.5 L Urine Creatinine Urine Total Protein Vancomycin Trough Coronavirus (PCR) SARS-CoV-2 IgG Ab 07/29/20 07/30/20 07/30/20 23:28 04:47 05:28 WBC RBC Hgb Hct MCH MCHC RDW Plt Count Lymph % (Auto) Lymph # (Auto) Seg Neutrophils % Seg Neuts % (Manual) Lymphocytes % (Manual) Eosinophils % (Manual) Nucleated RBC % Seg Neutrophils # Seg Neutrophils # Man Lymphocytes # (Manual) Eosinophils # (Manual) D-Dimer ABG pH POC ABG pCO2 55.1 H POC ABG pO2 43.6 L ABG pO2 ABG HCO3 ABG O2 Saturation ABG Base Excess ABG Hemoglobin 11.9 L ABG Oxyhemoglobin ABG Sodium ABG Potassium ABG Chloride 96.0 L ABG Glucose 150 H Oxyhemoglobin Carboxyhemoglobin Sodium Potassium Chloride Carbon Dioxide BUN Creatinine Glucose POC Glucose 121 H 143 H Lactic Acid Calcium Ferritin AST ALT Lactate Dehydrogenase C-Reactive Protein Total Protein Albumin Triglycerides Arterial Blood Glucose 150 H Arterial Blood Ionized Calcium Urine Creatinine Urine Total Protein Vancomycin Trough Coronavirus (PCR) SARS-CoV-2 IgG Ab 07/30/20 07/30/20 07/30/20 08:18 12:00 14:17 WBC RBC Hgb Hct MCH MCHC RDW Plt Count Lymph % (Auto) Lymph # (Auto) Seg Neutrophils % Seg Neuts % (Manual) Lymphocytes % (Manual) Eosinophils % (Manual) Nucleated RBC % Seg Neutrophils # Seg Neutrophils # Man Lymphocytes # (Manual) Eosinophils # (Manual) D-Dimer ABG pH POC ABG pCO2 63.3 H 64.6 H POC ABG pO2 47.9 L 41.0 L ABG pO2 ABG HCO3 ABG O2 Saturation ABG Base Excess ABG Hemoglobin 10.5 L 10.2 L ABG Oxyhemoglobin 84.9 L ABG Sodium ABG Potassium ABG Chloride 97.0 L ABG Glucose 170 H 175 H Oxyhemoglobin Carboxyhemoglobin Sodium Potassium Chloride Carbon Dioxide BUN Creatinine Glucose POC Glucose 161 H Lactic Acid Calcium Ferritin AST ALT Lactate Dehydrogenase C-Reactive Protein Total Protein Albumin Triglycerides Arterial Blood Glucose 170 H 175 H Arterial Blood Ionized Calcium 4.4 L 4.4 L Urine Creatinine Urine Total Protein Vancomycin Trough Coronavirus (PCR) SARS-CoV-2 IgG Ab 07/30/20 07/30/20 07/30/20 15:15 15:15 15:15 WBC RBC 2.80 L Hgb 9.1 L Hct 26.0 L D MCH MCHC 35 H RDW Plt Count 101 L Lymph % (Auto) Lymph # (Auto) Seg Neutrophils % Seg Neuts % (Manual) 90.0 H Lymphocytes % (Manual) 7.0 L Eosinophils % (Manual) Nucleated RBC % Seg Neutrophils # Seg Neutrophils # Man Lymphocytes # (Manual) 0.4 L Eosinophils # (Manual) D-Dimer ABG pH POC ABG pCO2 POC ABG pO2 ABG pO2 ABG HCO3 ABG O2 Saturation ABG Base Excess ABG Hemoglobin ABG Oxyhemoglobin ABG Sodium ABG Potassium ABG Chloride ABG Glucose Oxyhemoglobin Carboxyhemoglobin Sodium Potassium Chloride 97.1 L Carbon Dioxide 32 H D BUN 39 H Creatinine 1.3 H D Glucose 167 H POC Glucose Lactic Acid Calcium 8.0 L Ferritin AST ALT Lactate Dehydrogenase C-Reactive Protein Total Protein Albumin Triglycerides 837 H Arterial Blood Glucose Arterial Blood Ionized Calcium Urine Creatinine Urine Total Protein Vancomycin Trough Coronavirus (PCR) SARS-CoV-2 IgG Ab 07/30/20 07/30/20 07/30/20 15:15 17:03 17:43 WBC RBC Hgb Hct MCH MCHC RDW Plt Count Lymph % (Auto) Lymph # (Auto) Seg Neutrophils % Seg Neuts % (Manual) Lymphocytes % (Manual) Eosinophils % (Manual) Nucleated RBC % Seg Neutrophils # Seg Neutrophils # Man Lymphocytes # (Manual) Eosinophils # (Manual) D-Dimer ABG pH POC ABG pCO2 POC ABG pO2 ABG pO2 ABG HCO3 ABG O2 Saturation ABG Base Excess ABG Hemoglobin ABG Oxyhemoglobin ABG Sodium ABG Potassium ABG Chloride ABG Glucose Oxyhemoglobin Carboxyhemoglobin Sodium Potassium Chloride Carbon Dioxide BUN Creatinine Glucose POC Glucose 171 H Lactic Acid 2.20 H* 3.60 H* Calcium Ferritin AST ALT Lactate Dehydrogenase C-Reactive Protein Total Protein Albumin Triglycerides Arterial Blood Glucose Arterial Blood Ionized Calcium Urine Creatinine Urine Total Protein Vancomycin Trough Coronavirus (PCR) SARS-CoV-2 IgG Ab 07/30/20 07/30/20 07/31/20 20:13 23:37 04:15 WBC RBC Hgb Hct MCH MCHC RDW Plt Count Lymph % (Auto) Lymph # (Auto) Seg Neutrophils % Seg Neuts % (Manual) Lymphocytes % (Manual) Eosinophils % (Manual) Nucleated RBC % Seg Neutrophils # Seg Neutrophils # Man Lymphocytes # (Manual) Eosinophils # (Manual) D-Dimer ABG pH 7.544 H 7.489 H POC ABG pCO2 POC ABG pO2 44.4 L 50.0 L ABG pO2 ABG HCO3 ABG O2 Saturation ABG Base Excess ABG Hemoglobin 10.4 L ABG Oxyhemoglobin ABG Sodium 135.3 L ABG Potassium ABG Chloride ABG Glucose 201 H 199 H Oxyhemoglobin Carboxyhemoglobin Sodium Potassium Chloride Carbon Dioxide BUN Creatinine Glucose POC Glucose 160 H Lactic Acid Calcium Ferritin AST ALT Lactate Dehydrogenase C-Reactive Protein Total Protein Albumin Triglycerides Arterial Blood Glucose 201 H 199 H Arterial Blood Ionized Calcium 4.2 L 4.4 L Urine Creatinine Urine Total Protein Vancomycin Trough Coronavirus (PCR) SARS-CoV-2 IgG Ab 07/31/20 07/31/20 07/31/20 05:16 05:16 05:28 WBC RBC 3.03 L Hgb 9.2 L Hct 27.6 L MCH MCHC RDW Plt Count 118 L Lymph % (Auto) 6.3 L Lymph # (Auto) 0.5 L Seg Neutrophils % Seg Neuts % (Manual) Lymphocytes % (Manual) Eosinophils % (Manual) Nucleated RBC % Seg Neutrophils # Seg Neutrophils # Man Lymphocytes # (Manual) Eosinophils # (Manual) D-Dimer ABG pH POC ABG pCO2 POC ABG pO2 ABG pO2 ABG HCO3 ABG O2 Saturation ABG Base Excess ABG Hemoglobin ABG Oxyhemoglobin ABG Sodium ABG Potassium ABG Chloride ABG Glucose Oxyhemoglobin Carboxyhemoglobin Sodium Potassium Chloride Carbon Dioxide BUN 57 H Creatinine 1.7 H Glucose 208 H POC Glucose 182 H Lactic Acid Calcium 8.3 L Ferritin AST 613 H ALT 760 H Lactate Dehydrogenase C-Reactive Protein Total Protein 5.6 L Albumin 2.2 L Triglycerides Arterial Blood Glucose Arterial Blood Ionized Calcium Urine Creatinine Urine Total Protein Vancomycin Trough Coronavirus (PCR) SARS-CoV-2 IgG Ab 07/31/20 07/31/20 07/31/20 11:02 14:14 14:14 WBC RBC Hgb Hct MCH MCHC RDW Plt Count Lymph % (Auto) Lymph # (Auto) Seg Neutrophils % Seg Neuts % (Manual) Lymphocytes % (Manual) Eosinophils % (Manual) Nucleated RBC % Seg Neutrophils # Seg Neutrophils # Man Lymphocytes # (Manual) Eosinophils # (Manual) D-Dimer 2522.40 H ABG pH POC ABG pCO2 POC ABG pO2 ABG pO2 ABG HCO3 ABG O2 Saturation ABG Base Excess ABG Hemoglobin ABG Oxyhemoglobin ABG Sodium ABG Potassium ABG Chloride ABG Glucose Oxyhemoglobin Carboxyhemoglobin Sodium Potassium Chloride Carbon Dioxide BUN Creatinine Glucose POC Glucose 200 H Lactic Acid Calcium Ferritin 964.8 H AST ALT Lactate Dehydrogenase C-Reactive Protein Total Protein Albumin Triglycerides Arterial Blood Glucose Arterial Blood Ionized Calcium Urine Creatinine Urine Total Protein Vancomycin Trough Coronavirus (PCR) SARS-CoV-2 IgG Ab 07/31/20 07/31/20 07/31/20 14:14 14:14 16:00 WBC RBC Hgb Hct MCH MCHC RDW Plt Count Lymph % (Auto) Lymph # (Auto) Seg Neutrophils % Seg Neuts % (Manual) Lymphocytes % (Manual) Eosinophils % (Manual) Nucleated RBC % Seg Neutrophils # Seg Neutrophils # Man Lymphocytes # (Manual) Eosinophils # (Manual) D-Dimer ABG pH POC ABG pCO2 POC ABG pO2 ABG pO2 ABG HCO3 ABG O2 Saturation ABG Base Excess ABG Hemoglobin ABG Oxyhemoglobin ABG Sodium ABG Potassium ABG Chloride ABG Glucose Oxyhemoglobin Carboxyhemoglobin Sodium Potassium Chloride Carbon Dioxide BUN Creatinine Glucose POC Glucose Lactic Acid Calcium Ferritin AST ALT Lactate Dehydrogenase 585 H C-Reactive Protein 49.00 H Total Protein Albumin Triglycerides Arterial Blood Glucose Arterial Blood Ionized Calcium Urine Creatinine 89.2 H Urine Total Protein 108 H Vancomycin Trough 28.2 H Coronavirus (PCR) SARS-CoV-2 IgG Ab 07/31/20 07/31/20 08/01/20 17:22 21:26 00:07 WBC RBC Hgb Hct MCH MCHC RDW Plt Count Lymph % (Auto) Lymph # (Auto) Seg Neutrophils % Seg Neuts % (Manual) Lymphocytes % (Manual) Eosinophils % (Manual) Nucleated RBC % Seg Neutrophils # Seg Neutrophils # Man Lymphocytes # (Manual) Eosinophils # (Manual) D-Dimer ABG pH POC ABG pCO2 POC ABG pO2 156.0 H ABG pO2 ABG HCO3 ABG O2 Saturation ABG Base Excess ABG Hemoglobin 9.6 L ABG Oxyhemoglobin 98.4 H ABG Sodium 135.9 L ABG Potassium ABG Chloride ABG Glucose 290 H Oxyhemoglobin Carboxyhemoglobin 0.4 L Sodium Potassium Chloride Carbon Dioxide BUN Creatinine Glucose POC Glucose 229 H 255 H Lactic Acid Calcium Ferritin AST ALT Lactate Dehydrogenase C-Reactive Protein Total Protein Albumin Triglycerides Arterial Blood Glucose 290 H Arterial Blood Ionized Calcium 4.5 L Urine Creatinine Urine Total Protein Vancomycin Trough Coronavirus (PCR) SARS-CoV-2 IgG Ab 08/01/20 08/01/20 08/01/20 04:46 05:30 05:30 WBC RBC 2.27 L Hgb 7.6 L Hct 20.9 L D MCH 34 H MCHC 37 H RDW Plt Count 85 L Lymph % (Auto) Lymph # (Auto) Seg Neutrophils % Seg Neuts % (Manual) 87.0 H Lymphocytes % (Manual) 2.0 L Eosinophils % (Manual) Nucleated RBC % 1.0 H Seg Neutrophils # Seg Neutrophils # Man Lymphocytes # (Manual) 0.1 L Eosinophils # (Manual) D-Dimer ABG pH 7.462 H POC ABG pCO2 POC ABG pO2 70.2 L ABG pO2 ABG HCO3 ABG O2 Saturation ABG Base Excess ABG Hemoglobin 8.7 L ABG Oxyhemoglobin ABG Sodium 135.7 L ABG Potassium 3.3 L ABG Chloride ABG Glucose 275 H Oxyhemoglobin Carboxyhemoglobin Sodium 132 L D Potassium 2.8 L* D Chloride Carbon Dioxide BUN 47 H Creatinine Glucose 217 H POC Glucose Lactic Acid Calcium 6.6 L D Ferritin AST 117 H ALT 408 H Lactate Dehydrogenase C-Reactive Protein Total Protein 4.3 L D Albumin 0.6 L Triglycerides 2335 H Arterial Blood Glucose 275 H Arterial Blood Ionized Calcium 4.5 L Urine Creatinine Urine Total Protein Vancomycin Trough Coronavirus (PCR) SARS-CoV-2 IgG Ab 08/01/20 08/01/20 08/01/20 05:34 09:33 11:50 WBC RBC Hgb Hct MCH MCHC RDW Plt Count Lymph % (Auto) Lymph # (Auto) Seg Neutrophils % Seg Neuts % (Manual) Lymphocytes % (Manual) Eosinophils % (Manual) Nucleated RBC % Seg Neutrophils # Seg Neutrophils # Man Lymphocytes # (Manual) Eosinophils # (Manual) D-Dimer ABG pH POC ABG pCO2 POC ABG pO2 ABG pO2 ABG HCO3 ABG O2 Saturation ABG Base Excess ABG Hemoglobin ABG Oxyhemoglobin ABG Sodium ABG Potassium ABG Chloride ABG Glucose Oxyhemoglobin Carboxyhemoglobin Sodium Potassium Chloride Carbon Dioxide BUN 57 H Creatinine Glucose 250 H POC Glucose 246 H 239 H Lactic Acid Calcium 8.2 L D Ferritin AST ALT Lactate Dehydrogenase C-Reactive Protein Total Protein Albumin Triglycerides 759 H Arterial Blood Glucose Arterial Blood Ionized Calcium Urine Creatinine Urine Total Protein Vancomycin Trough Coronavirus (PCR) SARS-CoV-2 IgG Ab 08/01/20 08/01/20 08/02/20 17:14 23:21 04:22 WBC RBC Hgb Hct MCH MCHC RDW Plt Count Lymph % (Auto) Lymph # (Auto) Seg Neutrophils % Seg Neuts % (Manual) Lymphocytes % (Manual) Eosinophils % (Manual) Nucleated RBC % Seg Neutrophils # Seg Neutrophils # Man Lymphocytes # (Manual) Eosinophils # (Manual) D-Dimer ABG pH 7.268 L POC ABG pCO2 56.6 H POC ABG pO2 ABG pO2 ABG HCO3 ABG O2 Saturation ABG Base Excess ABG Hemoglobin 8.4 L ABG Oxyhemoglobin ABG Sodium ABG Potassium 4.9 H ABG Chloride ABG Glucose 261 H Oxyhemoglobin Carboxyhemoglobin Sodium Potassium Chloride Carbon Dioxide BUN Creatinine Glucose POC Glucose 219 H 242 H Lactic Acid Calcium Ferritin AST ALT Lactate Dehydrogenase C-Reactive Protein Total Protein Albumin Triglycerides Arterial Blood Glucose 261 H Arterial Blood Ionized Calcium Urine Creatinine Urine Total Protein Vancomycin Trough Coronavirus (PCR) SARS-CoV-2 IgG Ab 08/02/20 08/02/20 08/02/20 05:05 06:37 06:37 WBC RBC 3.40 L Hgb 10.0 L Hct MCH MCHC RDW 16.2 H Plt Count 87 L Lymph % (Auto) Lymph # (Auto) Seg Neutrophils % Seg Neuts % (Manual) 82.0 H Lymphocytes % (Manual) 3.0 L Eosinophils % (Manual) Nucleated RBC % 2.0 H Seg Neutrophils # Seg Neutrophils # Man 9.0 H Lymphocytes # (Manual) 0.3 L Eosinophils # (Manual) D-Dimer ABG pH POC ABG pCO2 POC ABG pO2 ABG pO2 ABG HCO3 ABG O2 Saturation ABG Base Excess ABG Hemoglobin ABG Oxyhemoglobin ABG Sodium ABG Potassium ABG Chloride ABG Glucose Oxyhemoglobin Carboxyhemoglobin Sodium Potassium 5.3 H D Chloride Carbon Dioxide BUN 53 H Creatinine Glucose 267 H POC Glucose 254 H Lactic Acid Calcium 8.1 L Ferritin AST 43 H ALT 334 H Lactate Dehydrogenase C-Reactive Protein Total Protein 5.4 L D Albumin 1.9 L Triglycerides Arterial Blood Glucose Arterial Blood Ionized Calcium Urine Creatinine Urine Total Protein Vancomycin Trough Coronavirus (PCR) SARS-CoV-2 IgG Ab 08/02/20 08/02/20 08/02/20 06:37 11:34 17:04 WBC RBC Hgb Hct MCH MCHC RDW Plt Count Lymph % (Auto) Lymph # (Auto) Seg Neutrophils % Seg Neuts % (Manual) Lymphocytes % (Manual) Eosinophils % (Manual) Nucleated RBC % Seg Neutrophils # Seg Neutrophils # Man Lymphocytes # (Manual) Eosinophils # (Manual) D-Dimer ABG pH POC ABG pCO2 POC ABG pO2 ABG pO2 ABG HCO3 ABG O2 Saturation ABG Base Excess ABG Hemoglobin ABG Oxyhemoglobin ABG Sodium ABG Potassium ABG Chloride ABG Glucose Oxyhemoglobin Carboxyhemoglobin Sodium Potassium Chloride Carbon Dioxide BUN Creatinine Glucose POC Glucose 279 H 256 H Lactic Acid Calcium Ferritin AST ALT Lactate Dehydrogenase C-Reactive Protein Total Protein Albumin Triglycerides 717 H Arterial Blood Glucose Arterial Blood Ionized Calcium Urine Creatinine Urine Total Protein Vancomycin Trough Coronavirus (PCR) SARS-CoV-2 IgG Ab 08/02/20 08/03/20 08/03/20 23:23 01:25 04:49 WBC 13.2 H RBC 2.83 L Hgb 8.4 L Hct 26.3 L MCH MCHC RDW 16.4 H Plt Count Lymph % (Auto) Lymph # (Auto) Seg Neutrophils % Seg Neuts % (Manual) Lymphocytes % (Manual) 2.0 L Eosinophils % (Manual) Nucleated RBC % 1.0 H Seg Neutrophils # Seg Neutrophils # Man 7.8 H Lymphocytes # (Manual) 0.3 L Eosinophils # (Manual) D-Dimer ABG pH 7.302 L POC ABG pCO2 56.0 H POC ABG pO2 39.6 L ABG pO2 ABG HCO3 ABG O2 Saturation ABG Base Excess ABG Hemoglobin 9.1 L ABG Oxyhemoglobin ABG Sodium ABG Potassium 4.8 H ABG Chloride 108.0 H ABG Glucose 275 H Oxyhemoglobin Carboxyhemoglobin Sodium Potassium Chloride Carbon Dioxide BUN Creatinine Glucose POC Glucose 214 H Lactic Acid Calcium Ferritin AST ALT Lactate Dehydrogenase C-Reactive Protein Total Protein Albumin Triglycerides Arterial Blood Glucose 275 H Arterial Blood Ionized Calcium Urine Creatinine Urine Total Protein Vancomycin Trough Coronavirus (PCR) SARS-CoV-2 IgG Ab 08/03/20 08/03/20 08/03/20 04:49 04:49 05:11 WBC RBC Hgb Hct MCH MCHC RDW Plt Count Lymph % (Auto) Lymph # (Auto) Seg Neutrophils % Seg Neuts % (Manual) Lymphocytes % (Manual) Eosinophils % (Manual) Nucleated RBC % Seg Neutrophils # Seg Neutrophils # Man Lymphocytes # (Manual) Eosinophils # (Manual) D-Dimer ABG pH POC ABG pCO2 POC ABG pO2 ABG pO2 ABG HCO3 ABG O2 Saturation ABG Base Excess ABG Hemoglobin ABG Oxyhemoglobin ABG Sodium ABG Potassium ABG Chloride ABG Glucose Oxyhemoglobin Carboxyhemoglobin Sodium Potassium Chloride Carbon Dioxide BUN 39 H Creatinine Glucose 263 H POC Glucose 230 H Lactic Acid Calcium 8.1 L Ferritin AST ALT 242 H Lactate Dehydrogenase C-Reactive Protein Total Protein 5.4 L Albumin 2.2 L Triglycerides 500 H Arterial Blood Glucose Arterial Blood Ionized Calcium Urine Creatinine Urine Total Protein Vancomycin Trough Coronavirus (PCR) SARS-CoV-2 IgG Ab 08/03/20 08/03/20 08/03/20 11:55 17:07 23:25 WBC RBC Hgb Hct MCH MCHC RDW Plt Count Lymph % (Auto) Lymph # (Auto) Seg Neutrophils % Seg Neuts % (Manual) Lymphocytes % (Manual) Eosinophils % (Manual) Nucleated RBC % Seg Neutrophils # Seg Neutrophils # Man Lymphocytes # (Manual) Eosinophils # (Manual) D-Dimer ABG pH POC ABG pCO2 POC ABG pO2 ABG pO2 ABG HCO3 ABG O2 Saturation ABG Base Excess ABG Hemoglobin ABG Oxyhemoglobin ABG Sodium ABG Potassium ABG Chloride ABG Glucose Oxyhemoglobin Carboxyhemoglobin Sodium Potassium Chloride Carbon Dioxide BUN Creatinine Glucose POC Glucose 238 H 205 H 211 H Lactic Acid Calcium Ferritin AST ALT Lactate Dehydrogenase C-Reactive Protein Total Protein Albumin Triglycerides Arterial Blood Glucose Arterial Blood Ionized Calcium Urine Creatinine Urine Total Protein Vancomycin Trough Coronavirus (PCR) SARS-CoV-2 IgG Ab 08/04/20 08/04/20 08/04/20 03:16 05:31 12:07 WBC RBC Hgb Hct MCH MCHC RDW Plt Count Lymph % (Auto) Lymph # (Auto) Seg Neutrophils % Seg Neuts % (Manual) Lymphocytes % (Manual) Eosinophils % (Manual) Nucleated RBC % Seg Neutrophils # Seg Neutrophils # Man Lymphocytes # (Manual) Eosinophils # (Manual) D-Dimer ABG pH 7.154 L POC ABG pCO2 80.7 H POC ABG pO2 ABG pO2 ABG HCO3 ABG O2 Saturation ABG Base Excess ABG Hemoglobin 8.5 L ABG Oxyhemoglobin ABG Sodium ABG Potassium 5.1 H ABG Chloride 109.0 H ABG Glucose 226 H Oxyhemoglobin Carboxyhemoglobin Sodium Potassium Chloride Carbon Dioxide BUN Creatinine Glucose POC Glucose 201 H 213 H Lactic Acid Calcium Ferritin AST ALT Lactate Dehydrogenase C-Reactive Protein Total Protein Albumin Triglycerides Arterial Blood Glucose 226 H Arterial Blood Ionized Calcium Urine Creatinine Urine Total Protein Vancomycin Trough Coronavirus (PCR) SARS-CoV-2 IgG Ab 08/04/20 08/04/20 08/04/20 17:39 23:17 Unknown WBC RBC 2.38 L Hgb 7.1 L Hct 22.4 L MCH MCHC RDW 16.5 H Plt Count Lymph % (Auto) Lymph # (Auto) Seg Neutrophils % Seg Neuts % (Manual) Lymphocytes % (Manual) 1.0 L Eosinophils % (Manual) Nucleated RBC % Seg Neutrophils # Seg Neutrophils # Man Lymphocytes # (Manual) 0.1 L Eosinophils # (Manual) D-Dimer ABG pH POC ABG pCO2 POC ABG pO2 ABG pO2 ABG HCO3 ABG O2 Saturation ABG Base Excess ABG Hemoglobin ABG Oxyhemoglobin ABG Sodium ABG Potassium ABG Chloride ABG Glucose Oxyhemoglobin Carboxyhemoglobin Sodium Potassium Chloride Carbon Dioxide BUN Creatinine Glucose POC Glucose 155 H 107 H Lactic Acid Calcium Ferritin AST ALT Lactate Dehydrogenase C-Reactive Protein Total Protein Albumin Triglycerides Arterial Blood Glucose Arterial Blood Ionized Calcium Urine Creatinine Urine Total Protein Vancomycin Trough Coronavirus (PCR) SARS-CoV-2 IgG Ab 08/04/20 08/05/20 08/05/20 Unknown 05:14 05:50 WBC RBC Hgb Hct MCH MCHC RDW Plt Count Lymph % (Auto) Lymph # (Auto) Seg Neutrophils % Seg Neuts % (Manual) Lymphocytes % (Manual) Eosinophils % (Manual) Nucleated RBC % Seg Neutrophils # Seg Neutrophils # Man Lymphocytes # (Manual) Eosinophils # (Manual) D-Dimer ABG pH POC ABG pCO2 51.7 H POC ABG pO2 63.3 L ABG pO2 ABG HCO3 ABG O2 Saturation ABG Base Excess ABG Hemoglobin 9.9 L ABG Oxyhemoglobin ABG Sodium 146.9 H ABG Potassium ABG Chloride 113.0 H ABG Glucose 112 H Oxyhemoglobin Carboxyhemoglobin Sodium Potassium Chloride 113.1 H Carbon Dioxide BUN 27 H Creatinine 0.5 L Glucose 190 H POC Glucose 126 H Lactic Acid Calcium 7.5 L Ferritin AST ALT 134 H Lactate Dehydrogenase C-Reactive Protein Total Protein 4.7 L Albumin 2.2 L Triglycerides Arterial Blood Glucose 112 H Arterial Blood Ionized Calcium Urine Creatinine Urine Total Protein Vancomycin Trough Coronavirus (PCR) SARS-CoV-2 IgG Ab 08/05/20 08/05/20 08:30 08:30 WBC 16.5 H RBC 2.79 L Hgb 8.3 L Hct 26.1 L MCH MCHC RDW 16.7 H Plt Count Lymph % (Auto) Lymph # (Auto) Seg Neutrophils % Seg Neuts % (Manual) Lymphocytes % (Manual) Eosinophils % (Manual) Nucleated RBC % Seg Neutrophils # Seg Neutrophils # Man Lymphocytes # (Manual) Eosinophils # (Manual) D-Dimer ABG pH POC ABG pCO2 POC ABG pO2 ABG pO2 ABG HCO3 ABG O2 Saturation ABG Base Excess ABG Hemoglobin ABG Oxyhemoglobin ABG Sodium ABG Potassium ABG Chloride ABG Glucose Oxyhemoglobin Carboxyhemoglobin Sodium 149 H Potassium Chloride 112.9 H Carbon Dioxide 32 H D BUN 25 H Creatinine Glucose 184 H POC Glucose Lactic Acid Calcium Ferritin AST ALT 115 H Lactate Dehydrogenase C-Reactive Protein Total Protein 5.5 L Albumin 2.3 L Triglycerides Arterial Blood Glucose Arterial Blood Ionized Calcium Urine Creatinine Urine Total Protein Vancomycin Trough Coronavirus (PCR) SARS-CoV-2 IgG Ab Chest x-ray: image reviewed (improved / resolved pneumothooraces and chest tubes in place) Allied health notes reviewed: nursing
[2020-08-05] MEDS: cefTRIAXone/NS 2 GM/100 ML 2 GM/100 ML BAG IV SCH (10:51)
[2020-08-05] MEDS: VENLAFAXINE 37.5 MG TAB PO SCH (10:51)
[2020-08-05] MEDS: HYDROXYCHLOROQUINE 200 MG TAB PO SCH (10:52)
[2020-08-05] MEDS: ASCORBIC ACID 500 MG TAB PO SCH ×2 (10:52→21:03)
[2020-08-05] MEDS: ASPIRIN 81 MG TAB CHEW PO SCH (10:52)
[2020-08-05] MEDS: ENOXAPARIN 30 MG/0.3 ML INJ SUB-Q SCH (10:52)
[2020-08-05] MEDS: QUEtiapine 200 MG TAB PO SCH ×2 (10:52→21:03)
[2020-08-05] MEDS: LANSOPRAZOLE 30 MG SOLUTAB FEEDTUBE SCH (10:52)
[2020-08-05] MEDS: INSULIN GLARGINE 100 UNITS/ML SUB-Q SCH (10:54)
[2020-08-05] MEDS: POLYETHYLENE GLYCOL 3350 17 GM POWDER PO SCH (10:55)
[2020-08-05] MEDS: DOCUSATE SODIUM 100 MG/10 ML ORAL LIQD PO SCH ×2 (10:55→21:03)
[2020-08-05] MEDS ORDERED: IPRATROPIUM/ALBUTEROL SULFATE 3 ML AMPUL.NEB IH PRN (11:33)
[2020-08-05 11:47] LABS: Band Neutrophils # (Manual) 2.6 K/mm3; Basophils % (Manual) 0 % (0.0-1.8); Eosinophils % (Manual) 0 % (0.0-4.3); Total Cells Counted 100
[2020-08-05 11:48] LABS: Giant Platelets Rare; Hypochromasia 1+; Platelet Estimate Consistent w Auto
--- NOTE | 2020-08-05 11:57 | Progress Note ---
Assessment and Plan Cultures: Blood cultures 07/07/2020 no growth SARS COV2- IgG negative Sputum culture 07/08/2020 usual respiratory kerwin Blood culture 07/11/2020 no growth Blood culture 07/19/2020 no growth Tracheal aspirate 07/30/2020 MRSA and E. coli A/P: 50-year-old female with CHF, asthma, hypertension, lupus was admitted to the hospital with complaints of fever, shortness of breath. Of note, she was seen last week due to an asthma exacerbation when her SARS-CoV-2 PCR and IgG were both negative. She was treated with steroids. She reportedly then went to [place] and tested positive for COVID-19 and was discharged from the hospital on 07/05/2020: #Sepsis with septic shock: off pressors, no fever. Repeat blood cultures negative. Urinalysis negative. Source VAP. #Acute hypoxic respiratory failure: Remains intubated, likely secondary to VAP and bilateral pneumothorax. #Bilateral pneumothorax: Status post bilateral chest tube, surgery on board #VAP: Secondary to MRSA and E. coli. Chest x-ray not especially concerning, however worsening pulmonary status with associated fevers. Procalcitonin massively elevated even in the setting of acute renal injury. #Critical Covid pneumonia: Completed remdesivir, IV steroids. #Lupus: On Plaquenil. #CHF #Asthma #MAHOGANY: Possible in setting of vancomycin, resolved Recs: -Continue vancomycin goal trough 10-20 for now -day 4 of 10 -Continue ceftriaxone 2 g every 24 hours-day 4 of 10 -Consider CTA of chest to rule out pulmonary embolism in light of increasing D- dimer and persistent tachycardia -Monitor tachycardia -Repeat procalcitonin and CRP Guarded prognosis will follow Eneida Quiñones MD [facility] ([facility]) Office [phone] Subjective Date of service: 08/05/20 Principal diagnosis: Ac hypoxemic resp failure; PNA; COVID-19 infxn; SLE; Asthma exacerbation Interval history: Patient remains intubated, sedated, tachycardic on monitor, off pressors today. No fever. Objective - Exam Narrative Exam: General appearance: Sedated intubated Eyes: anicteric sclerae, moist conjunctivae; no lid-lag; PERRLA HENT: Normocephalic, Atraumatic; normal external ears, nares open, oropharynx limited endotracheal tube in place Neck: supple, tracheal midline, no JVD Lungs: Bilateral scattered crackles, bilateral chest tubes, chest tubes x2 on the right CV: Tachycardic Abdomen: Soft, non-tender; no masses or hepatosplenomegaly Extremities: Bilateral leg edema Skin: Bilateral neck and chest subcutaneous emphysema Psych: Sedated Neuro: Sedated - Constitutional Vitals: Vital Signs Temp Pulse Resp BP Pulse Ox 98.9 F 138 H 30 H 137/66 99 08/05/20 03:22 08/05/20 09:10 08/05/20 09:10 08/05/20 08:25 08/05/20 08:25 Temperature -Last 24 Hours Temperature 98.9 F Temperature 98.7 F Temperature 98.8 F Temperature 97.6 F Temperature 98 F - Labs CBC & Chem 7: 08/05/20 08:30 08/05/20 08:30 Labs: Abnormal lab results 08/04/20 08/04/20 08/04/20 Range/Units 12:07 17:39 23:17 WBC (4.5-11.0) K/mm3 RBC (3.65-5.03) M/mm3 Hgb (10.1-14.3) gm/dl Hct (30.3-42.9) % RDW (13.2-15.2) % Lymphocytes % (Manual) (13.4-35.0) % Seg Neutrophils # Man (1.8-7.7) K/mm3 Lymphocytes # (Manual) (1.2-5.4) K/mm3 POC ABG pCO2 (32.0-48.0) mmHg POC ABG pO2 (83-108) mmHg ABG Hemoglobin (12.0-17.5) ABG Sodium (136.0-145.0) mmol/L ABG Chloride (98-107) mmol/L ABG Glucose (65-95) mg/dL Sodium (137-145) mmol/L Chloride (98-107) mmol/L Carbon Dioxide (22-30) mmol/L BUN (7-17) mg/dL Creatinine (0.6-1.2) mg/dL Glucose (65-100) mg/dL POC Glucose 213 H 155 H 107 H (70-105) mg/dL Calcium (8.4-10.2) mg/dL ALT (7-56) units/L Total Protein (6.3-8.2) g/dL Albumin (3.9-5) g/dL Arterial Blood Glucose (65-95) mg/dL 08/04/20 08/04/20 08/05/20 Range/Units Unknown Unknown 05:14 WBC (4.5-11.0) K/mm3 RBC 2.38 L (3.65-5.03) M/mm3 Hgb 7.1 L (10.1-14.3) gm/dl Hct 22.4 L (30.3-42.9) % RDW 16.5 H (13.2-15.2) % Lymphocytes % (Manual) 1.0 L (13.4-35.0) % Seg Neutrophils # Man (1.8-7.7) K/mm3 Lymphocytes # (Manual) 0.1 L (1.2-5.4) K/mm3 POC ABG pCO2 (32.0-48.0) mmHg POC ABG pO2 (83-108) mmHg ABG Hemoglobin (12.0-17.5) ABG Sodium (136.0-145.0) mmol/L ABG Chloride (98-107) mmol/L ABG Glucose (65-95) mg/dL Sodium (137-145) mmol/L Chloride 113.1 H (98-107) mmol/L Carbon Dioxide (22-30) mmol/L BUN 27 H (7-17) mg/dL Creatinine 0.5 L (0.6-1.2) mg/dL Glucose 190 H (65-100) mg/dL POC Glucose 126 H (70-105) mg/dL Calcium 7.5 L (8.4-10.2) mg/dL ALT 134 H (7-56) units/L Total Protein 4.7 L (6.3-8.2) g/dL Albumin 2.2 L (3.9-5) g/dL Arterial Blood Glucose (65-95) mg/dL 08/05/20 08/05/20 08/05/20 Range/Units 05:50 08:30 08:30 WBC 16.5 H (4.5-11.0) K/mm3 RBC 2.79 L (3.65-5.03) M/mm3 Hgb 8.3 L (10.1-14.3) gm/dl Hct 26.1 L (30.3-42.9) % RDW 16.7 H (13.2-15.2) % Lymphocytes % (Manual) 6.0 L (13.4-35.0) % Seg Neutrophils # Man 10.1 H (1.8-7.7) K/mm3 Lymphocytes # (Manual) 1.0 L (1.2-5.4) K/mm3 POC ABG pCO2 51.7 H (32.0-48.0) mmHg POC ABG pO2 63.3 L (83-108) mmHg ABG Hemoglobin 9.9 L (12.0-17.5) ABG Sodium 146.9 H (136.0-145.0) mmol/L ABG Chloride 113.0 H (98-107) mmol/L ABG Glucose 112 H (65-95) mg/dL Sodium 149 H (137-145) mmol/L Chloride 112.9 H (98-107) mmol/L Carbon Dioxide 32 H D (22-30) mmol/L BUN 25 H (7-17) mg/dL Creatinine (0.6-1.2) mg/dL Glucose 184 H (65-100) mg/dL POC Glucose (70-105) mg/dL Calcium (8.4-10.2) mg/dL ALT 115 H (7-56) units/L Total Protein 5.5 L (6.3-8.2) g/dL Albumin 2.3 L (3.9-5) g/dL Arterial Blood Glucose 112 H (65-95) mg/dL 08/05/20 Range/Units 11:19 WBC (4.5-11.0) K/mm3 RBC (3.65-5.03) M/mm3 Hgb (10.1-14.3) gm/dl Hct (30.3-42.9) % RDW (13.2-15.2) % Lymphocytes % (Manual) (13.4-35.0) % Seg Neutrophils # Man (1.8-7.7) K/mm3 Lymphocytes # (Manual) (1.2-5.4) K/mm3 POC ABG pCO2 (32.0-48.0) mmHg POC ABG pO2 (83-108) mmHg ABG Hemoglobin (12.0-17.5) ABG Sodium (136.0-145.0) mmol/L ABG Chloride (98-107) mmol/L ABG Glucose (65-95) mg/dL Sodium (137-145) mmol/L Chloride (98-107) mmol/L Carbon Dioxide (22-30) mmol/L BUN (7-17) mg/dL Creatinine (0.6-1.2) mg/dL Glucose (65-100) mg/dL POC Glucose 185 H (70-105) mg/dL Calcium (8.4-10.2) mg/dL ALT (7-56) units/L Total Protein (6.3-8.2) g/dL Albumin (3.9-5) g/dL Arterial Blood Glucose (65-95) mg/dL
[2020-08-05] MEDS ORDERED: METOPROLOL TARTRATE 25 MG TAB PO SCH (12:00)
[2020-08-05] MEDS: PROPOFOL 500 MG/50 ML VIAL IV SCH ×2 (12:55→18:08)
[2020-08-05] MEDS: HEPARIN/ 0.45% NACL DRIP 25,000 UNIT/500 ML BAG IV SCH (13:25)
[2020-08-05 13:44] LABS: Hematocrit 24.6 % (30.3-42.9); Hemoglobin 7.7 gm/dl (10.1-14.3)
[2020-08-05 13:53] LABS: INR 1.22 (0.87-1.13)
[2020-08-05 13:54] LABS: Partial Thromboplastin Time 30.5 Sec. (24.2-36.6)
--- NOTE | 2020-08-05 14:22 | Progress Note ---
Assessment and Plan Assessment and plan: -Severe COVID-19 PNA -On vent. Sedated -Completed steroids and remdesivir -ID following -- Acute hypoxic respiratory failure Mechanically ventilated Continue antibiotics for MRSA sputum. --- Ventilator associated pneumonia from MRSA and E. coli Continue cefepime and vancomycin ID following ---Sinus tachycardia Possible PE. D-dimer >4k Started on full dose anticoagulation Plan to do Cta chest when stable Monitor hemoglobin --Pneumothorax and subcutaneous emphysema Chest x-ray today shows improvement in pneumothorax and bilateral opacities. Continue chest tube management as per security management specialist Surgery recommendations appreciated -- GERD (gastroesophageal reflux disease) cont Pantoprazole --SLE (systemic lupus erythematosus related syndrome) Continue home medications-hydroxychloroquine -- DVT prophylaxis Heparin drip for possible PE. -- Full code status brief History: 50-year-old female with a past medical history of asthma, hypertension, and lupus complains of generalized body weakness, fever and shortness of breath. Patient states the symptoms started right after she was discharged from [facility] on 07/05. She has associated wheezing, fever, cough and she has been using her inhalers with no significant effect. She also has associated diarrhea. Of note, she was hospitalized here in [facility] on 06/28 for asthma exacerbation and had a negative Covid test during the admission. She was treated and discharged. She presented to [facility] for further evaluation after discharge from here and over there, she was found to have positive COVID-19 test and she was placed on steroids and subsequently discharged on Eliquis prophylaxis for DVT. She states that she did not receive remdesivir during the admission. She was discharged from [facility] on 07/05. She went home and felt worse. She said that she passed out about 2 times. Due to persistent symptoms, she called EMS who brought her to [facility] for further evaluation. Daily course: 07/07. Patient seen and examined at bedside this morning. Patient is wheezing and slightly short of breath. Change steroids to Solu-Medrol 60 every 6. Added formoterol and budesonide. ID evaluation pending. Started patient on remdesivir as she is short of breath. 07/07: Placed on BIPAP this AM. Will need pulm evaluation. Solumedrol 60mg q6. STAT blood gas ordered. She will be transferred to [facility]. 07/08: Patient took oxygen off and attempts to go to the bathroom and subsequently became hypoxemic with sats down into the low 80s. Patient became weak short of breath. After that time patient had persistent coughing and cannot maintain sats until nonrebreather was placed. Patient is transferred to the ICU unit and monitored for respiratory failure possibly requiring intubation. 07/09: ID recommended for convalescent plasma, ordered. Patient intubated overnight. Continue to monitor clinically, scheduled lab, follow inflammatory markers 07/10: Wait for convalescent plasma transfusion, wean off from ventilator as tolerated 07/11: Called patient's daughter and updated. Continue to wean off vent as tolerated, continue tube feeding, monitor vital sign CBC BMP daily. 07/12: remains intubated and sedated. follow inflammatory markers - wean off vent as tolerated 07/13: wean off vent as tolerated, cxr in the am. reviewed vitals 07/14: remains intubated, has not received convalescent plasma yet. Reviewed vitals, tolerating tube feeding. Wean off vent per critical care as tolerated. 07/15: cont to provide supportive care, wean off vent as tolerated - difficult to wean off. 07/16: CXR findings improving, cont to wean off vent 07/17: Follow inflammatory markers, monitor off antibiotics. Wean off vent per pulmonary as tolerated 07/18: Wean off vent per pulmonary as tolerated,Follow inflammatory markers, monitor off antibiotics. 07/19: Wean off vent per pulmonary as tolerated,Follow inflammatory markers, monitor off antibiotics. SBT trial 07/20: Wean off vent as tolerated, continue supportive care, follow inflammatory markers 07/21: continue supportive care, follow inflammatory markers, wean off vent as tolerated 07/22: Continue to wean off from ventilator as tolerated per pulmonary recommendation, follow inflammatory markers. Repeat CBC BMP in the morning. We will repeat Covid test tomorrow to see if patient cleared the infection. 07/23. Continue to wean off from ventilator as tolerated per pulmonary recommendation, follow inflammatory markers. Currently AC mode, rate 16, tidal volume 450 with FiO2 75%vand PEEP 14 07/24/2020. Continue ventilatory support with AC mode, rate 16, tidal volume 450, FiO2 100% and PEEP of 16. Continue Brovana and Pulmicort. Continue IV steroids 40 mg IV every 8 hours. Anticoagulation with Lovenox 30 mg twice daily. Patient currently sedated with Versed and fentanyl. 07/25/2020. Continue ventilatory support with AC mode, rate 16, tidal volume 450, FiO2 75% and PEEP of 16. Continue Brovana and Pulmicort. Continue IV steroids 40 mg IV every 8 hours. Anticoagulation with Lovenox 30 mg twice daily. Patient currently sedated with Versed and fentanyl. Continue to wean per pulmonary recommendations. 07/26/2020. Continue ventilatory support with AC mode, rate 16, tidal volume 450, FiO2 85% and PEEP of 16. Continue Brovana and Pulmicort. Continue IV steroids 40 mg IV every 8 hours. Anticoagulation with Lovenox 30 mg twice daily. Patient currently sedated with Versed and fentanyl. Continue to wean per protocol. 07/27/2020. Continue ventilatory support with AC mode, rate 16, tidal volume 450, FiO2 100% and PEEP of 16. Patient with increased oxygen requirements the past couple of days. Continue Brovana and Pulmicort. Continue IV steroids 40 mg IV every 8 hours. Anticoagulation with Lovenox 30 mg twice daily. Patient currently sedated with Versed and fentanyl. Dose of Lasix given by pulmonary yesterday to achieve negative fluid balance. Follow-up serial chest x-ray 07/28/2020. Continue ventilatory support with AC mode, rate 16, tidal volume 450, FiO2 100% and PEEP of 16. Wean FiO2 per protocol. Continue Brovana and Pulmicort. Continue IV steroids 40 mg IV every 8 hours. Anticoagulation with Lovenox 30 mg twice daily. Patient currently sedated with Versed and fentanyl. 07/29/2020. Continue ventilatory support with AC mode, rate 16, tidal volume 450, FiO2 100% and PEEP of 16. Wean FiO2 per protocol. Continue Brovana and Pulmicort. Continue IV steroids 40 mg IV every 8 hours. Anticoagulation with Lovenox 30 mg twice daily. Wean sedation as tolerated. 07/30. Continue ventilatory support with AC mode, rate 16, tidal volume 450, FiO2 100% and PEEP of 16. Wean FiO2 per protocol. Continue Brovana and Pulmicort. Continue IV steroids 40 mg IV every 8 hours. Anticoagulation with Lovenox 30 mg twice daily. Wean sedation as tolerated. 07/31. Still ventilated. On sedatives. Renal function worse today. nephrology has been consulted. Started patient on IV hydration. BC - GN rods and staph aureus. She is on vancomycin. 08/01. Still ventilated. On sedatives. Renal function worse today. nephrology has been consulted. Started patient on IV hydration. BC - GN rods and staph aureus. She is on vancomycin. 08/02. Chest xray shows worsening pneumothorax. Chest tube in place. On vent and sedated 08/03. Continue ventilatory support with AC mode, rate 30, tidal volume 4000, FiO2 100% and PEEP of 16. Wean FiO2 per protocol. Continue Brovana and Pulmicort. Anticoagulation with Lovenox 30 mg twice daily. Wean sedation as tolerated. 08/04. Now has a left chest tube in place due to worsening pneumothorax. She also has subcutaneous emphysema. ID on board - on IV antibiotics-cefepime and vancomycin. ID following. 08/05. Patient is more tachycardic today with heart rate in 130s overnight. Chest x-ray shows improvement in pneumothoraces and bilateral opacities. Patient likely has a PE. Patient has been started on full anticoagulation. Still maintained on IV antibiotics. Continue ventilatory support. 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 The aggregate critical care time was [32] minutes. This time is in addition to time spent performing reported procedures but includes the following: [x] Data Review and interpretation [x] Patient assessment and monitoring of vital signs [x] Documentation [x] Medication orders and management - Patient Problems (1) COVID-19 Current Visit: Yes Status: Acute (2) Acute respiratory failure Current Visit: No Status: Acute Qualifiers: Respiratory failure complication: unspecified whether with hypoxia or hypercapnia Qualified Code(s): J96.00 - Acute respiratory failure, unspecified whether with hypoxia or hypercapnia (3) GERD (gastroesophageal reflux disease) Current Visit: No Status: Chronic Qualifiers: Esophagitis presence: without esophagitis Qualified Code(s): K21.9 - Gastro-esophageal reflux disease without esophagitis (4) SLE (systemic lupus erythematosus related syndrome) Current Visit: No Status: Chronic (5) DVT prophylaxis Current Visit: No Status: Acute (6) Full code status Current Visit: No Status: Acute History Interval history: 47-year-old female with a medical history of asthma, SLE presented to the hospital chief complaint of shortness of breath. Patient was admitted on account of acute asthma exacerbation and started on steroids. Patient reportedly tested positive for COVID-19 prior to presentation. Hospital course complicated with respiratory failure requiring BiPAP and subsequent intubation. Patient now in the ICU. Hospital course complicated with pneumothorax and subcutaneous emphysema now with chest tubes in place. Surgery is following. ID also following for COVID-19 infection. This a.m., patient is more tachycardic Maintaining her sats Full dose anticoagulation has been started Hospitalist Physical - Physical exam Narrative exam: VITAL SIGNS: Reviewed. GENERAL: Sedated and intubated HEAD: No signs of head trauma. EYES: Pupils are equal. Extraocular motions intact. MOUTH: Oropharynx is normal. NECK: No adenopathy, no JVD. CHEST: Rhonchi bilaterally, subcutaneous emphysema CARDIAC: Normal S1 and S2, without murmurs, gallops, or rubs. VASCULAR: trace edema ABDOMEN: Soft, non tender and non distended. Bowel Sounds normal. NEUROLOGIC EXAM: Sedated SKIN: No obvious lesions - Constitutional Vitals: Temp Pulse Resp BP Pulse Ox 98.9 F 142 H 30 H 120/52 97 08/05/20 03:22 08/05/20 12:02 08/05/20 09:10 08/05/20 12:02 08/05/20 12:02 Results - Labs CBC & Chem 7: 08/05/20 13:35 08/05/20 08:30 Labs: Laboratory Last Values WBC 16.5 K/mm3 (4.5-11.0) H 08/05/20 08:30 RBC 2.79 M/mm3 (3.65-5.03) L 08/05/20 08:30 Hgb 7.7 gm/dl (10.1-14.3) L 08/05/20 13:35 Hct 24.6 % (30.3-42.9) L 08/05/20 13:35 MCV 94 fl (79-97) 08/05/20 08:30 MCH 30 pg (28-32) 08/05/20 08:30 MCHC 32 % (30-34) 08/05/20 08:30 RDW 16.7 % (13.2-15.2) H 08/05/20 08:30 Plt Count 234 K/mm3 (140-440) 08/05/20 13:35 Lymph % (Auto) Russian Teacher 08/02/20 06:37 [place] % (Auto) Russian Teacher 08/02/20 06:37 Eos % (Auto) Russian Teacher 08/02/20 06:37 Baso % (Auto) Russian Teacher 08/02/20 06:37 Lymph # (Auto) Russian Teacher 08/02/20 06:37 [place] # (Auto) Russian Teacher 08/02/20 06:37 Eos # (Auto) Russian Teacher 08/02/20 06:37 Baso # (Auto) Russian Teacher 08/02/20 06:37 Add Manual Diff Complete 08/05/20 08:30 Total Counted 100 08/05/20 08:30 Seg Neutrophils % Russian Teacher 08/05/20 08:30 Seg Neuts % (Manual) 61.0 % (40.0-70.0) 08/05/20 08:30 Band Neutrophils % 16.0 % 08/05/20 08:30 Lymphocytes % (Manual) 6.0 % (13.4-35.0) L 08/05/20 08:30 Reactive Lymphs % (Man) 0 % 08/05/20 08:30 Monocytes % (Manual) 2.0 % (0.0-7.3) 08/05/20 08:30 Eosinophils % (Manual) 0 % (0.0-4.3) 08/05/20 08:30 Basophils % (Manual) 0 % (0.0-1.8) 08/05/20 08:30 Metamyelocytes % 3.0 % 08/05/20 08:30 Myelocytes % 12.0 % 08/05/20 08:30 Promyelocytes % 0 % 08/05/20 08:30 Blast Cells % 0 % 08/05/20 08:30 Nucleated RBC % Not Reportable 08/05/20 08:30 Seg Neutrophils # Russian Teacher 08/02/20 06:37 Seg Neutrophils # Man 10.1 K/mm3 (1.8-7.7) H 08/05/20 08:30 Band Neutrophils # 2.6 K/mm3 08/05/20 08:30 Lymphocytes # (Manual) 1.0 K/mm3 (1.2-5.4) L 08/05/20 08:30 Abs React Lymphs (Man) 0.0 K/mm3 08/05/20 08:30 Monocytes # (Manual) 0.3 K/mm3 (0.0-0.8) 08/05/20 08:30 Eosinophils # (Manual) 0.0 K/mm3 (0.0-0.4) 08/05/20 08:30 Basophils # (Manual) 0.0 K/mm3 (0.0-0.1) 08/05/20 08:30 Metamyelocytes # 0.5 K/mm3 08/05/20 08:30 Myelocytes # 2.0 K/mm3 08/05/20 08:30 Promyelocytes # 0.0 K/mm3 08/05/20 08:30 Blast Cells # 0.0 K/mm3 08/05/20 08:30 Pathologist Review 08/03/20 04:49 WBC Morphology Not Reportable 08/05/20 08:30 Hypersegmented Neuts Not Reportable 08/05/20 08:30 Hyposegmented Neuts Not Reportable 08/05/20 08:30 Hypogranular Neuts Not Reportable 08/05/20 08:30 Smudge Cells Not Reportable 08/05/20 08:30 Toxic Granulation Not Reportable 08/05/20 08:30 Toxic Vacuolation Not Reportable 08/05/20 08:30 Dohle Bodies Not Reportable 08/05/20 08:30 Pelger-Huet Anomaly Not Reportable 08/05/20 08:30 Savanna Rods Not Reportable 08/05/20 08:30 Platelet Estimate Consistent w auto 08/05/20 08:30 Clumped Platelets Not Reportable 08/05/20 08:30 Plt Clumps, EDTA Not Reportable 08/05/20 08:30 Large Platelets Not Reportable 08/05/20 08:30 Giant Platelets Rare 08/05/20 08:30 Platelet Satelliting Not Reportable 08/05/20 08:30 Plt Morphology Comment Not Reportable 08/05/20 08:30 RBC Morphology Not Reportable 08/05/20 08:30 Dimorphic RBCs Not Reportable 08/05/20 08:30 Polychromasia Not Reportable 08/05/20 08:30 Hypochromasia 1+ 08/05/20 08:30 Poikilocytosis Not Reportable 08/05/20 08:30 Anisocytosis Not Reportable 08/05/20 08:30 Microcytosis Not Reportable 08/05/20 08:30 Macrocytosis Not Reportable 08/05/20 08:30 Spherocytes Not Reportable 08/05/20 08:30 Pappenheimer Bodies Not Reportable 08/05/20 08:30 Sickle Cells Not Reportable 08/05/20 08:30 Target Cells Not Reportable 08/05/20 08:30 Tear Drop Cells Not Reportable 08/05/20 08:30 Ovalocytes Not Reportable 08/05/20 08:30 Helmet Cells Not Reportable 08/05/20 08:30 Raza-[place] Bodies Not Reportable 08/05/20 08:30 [place] Rings Not Reportable 08/05/20 08:30 Kristan Cells Not Reportable 08/05/20 08:30 Bite Cells Not Reportable 08/05/20 08:30 Crenated Cell Not Reportable 08/05/20 08:30 Elliptocytes Not Reportable 08/05/20 08:30 Acanthocytes (Spur) Not Reportable 08/05/20 08:30 Rouleaux Not Reportable 08/05/20 08:30 Hemoglobin C Crystals Not Reportable 08/05/20 08:30 Schistocytes Not Reportable 08/05/20 08:30 Malaria parasites Not Reportable 08/05/20 08:30 Junaid Bodies Not Reportable 08/05/20 08:30 Hem Pathologist Commnt No 08/05/20 08:30 PT 15.4 Sec. (12.2-14.9) H 08/05/20 13:35 INR 1.22 (0.87-1.13) H 08/05/20 13:35 APTT 30.5 Sec. (24.2-36.6) 08/05/20 13:35 D-Dimer 4748.32 ng/mlDDU (0-234) H 08/05/20 13:35 ABG pH 7.358 (7.320-7.450) 08/05/20 05:50 POC ABG pCO2 51.7 mmHg (32.0-48.0) H 08/05/20 05:50 ABG pCO2 81.7 mm Hg 07/28/20 04:15 POC ABG pO2 63.3 mmHg (83-108) L 08/05/20 05:50 ABG pO2 130.3 mm Hg (80.0-90.0) H 07/28/20 04:15 POC ABG HCO3 28.4 08/05/20 05:50 ABG HCO3 40.9 mmol/L (20.0-26.0) H 07/28/20 04:15 ABG O2 Saturation 98.1 % (95.0-99.0) 07/28/20 04:15 ABG O2 Content 8.2 (0.0-44) 07/28/20 04:15 POC ABG Base Excess 2.3 08/05/20 05:50 ABG Base Excess 13.5 mmol/L (-2.0-3.0) H 07/28/20 04:15 ABG Hemoglobin 9.9 (12.0-17.5) L 08/05/20 05:50 ABG Oxyhemoglobin 98.4 (94-98) H 07/31/20 21:26 ABG Carboxyhemoglobin 1.7 % (0.0-5.0) 07/28/20 04:15 ABG Methemoglobin 0.3 (0.0-1.5) 07/31/20 21:26 ABG Sodium 146.9 mmol/L (136.0-145.0) H 08/05/20 05:50 ABG Potassium 3.7 mmol/L (3.40-4.50) 08/05/20 05:50 ABG Chloride 113.0 mmol/L (98-107) H 08/05/20 05:50 ABG Glucose 112 mg/dL (65-95) H 08/05/20 05:50 Oxyhemoglobin 95.8 % (95.0-99.0) 07/28/20 04:15 Carboxyhemoglobin 0.4 (0.5-1.5) L 07/31/20 21:26 FiO2 90.0 08/05/20 05:50 Sodium 149 mmol/L (137-145) H 08/05/20 08:30 Potassium 3.9 mmol/L (3.6-5.0) 08/05/20 08:30 Chloride 112.9 mmol/L (98-107) H 08/05/20 08:30 Carbon Dioxide 32 mmol/L (22-30) H D 08/05/20 08:30 Anion Gap 8 mmol/L 08/05/20 08:30 BUN 25 mg/dL (7-17) H 08/05/20 08:30 Creatinine 0.6 mg/dL (0.6-1.2) 08/05/20 08:30 Estimated GFR > 60 ml/min 08/05/20 08:30 BUN/Creatinine Ratio 42 % 08/05/20 08:30 Glucose 184 mg/dL (65-100) H 08/05/20 08:30 POC Glucose 185 mg/dL (70-105) H 08/05/20 11:19 Lactic Acid 1.80 mmol/L (0.7-2.0) 07/31/20 14:14 Calcium 8.5 mg/dL (8.4-10.2) 08/05/20 08:30 Phosphorus 3.20 mg/dL (2.5-4.5) 07/08/20 16:13 Magnesium 2.20 mg/dL (1.7-2.3) 07/08/20 16:13 Ferritin 964.8 ng/mL (10.0-200.0) H 07/31/20 14:14 Total Bilirubin 0.30 mg/dL (0.1-1.2) 08/05/20 08:30 AST 21 units/L (5-40) 08/05/20 08:30 ALT 115 units/L (7-56) H 08/05/20 08:30 Alkaline Phosphatase 85 units/L (35-129) 08/05/20 08:30 Lactate Dehydrogenase 585 units/L (91-180) H 07/31/20 14:14 C-Reactive Protein 49.00 mg/dL (0.00-1.30) H 07/31/20 14:14 Total Protein 5.5 g/dL (6.3-8.2) L 08/05/20 08:30 Albumin 2.3 g/dL (3.9-5) L 08/05/20 08:30 Albumin/Globulin Ratio 0.7 % 08/05/20 08:30 Triglycerides 500 mg/dL (2-149) H 08/03/20 04:49 Procalcitonin 119.84 ng/mL (<0.15) 07/30/20 17:43 Arterial Blood Glucose 112 mg/dL (65-95) H 08/05/20 05:50 Arterial Blood Ionized Calcium 4.9 mg/dL (4.6-5.3) 08/05/20 05:50 Urine Color Yellow (Yellow) 07/11/20 09:30 Urine Turbidity Clear (Clear) 07/11/20 09:30 Urine pH 5.0 (5.0-7.0) 07/11/20 09:30 Ur Specific [facility] 1.028 (1.003-1.030) 07/11/20 09:30 Urine Protein <15 mg/dl mg/dL (Negative) 07/11/20 09:30 Urine Glucose (UA) Neg mg/dL (Negative) 07/11/20 09:30 Urine Ketones Neg mg/dL (Negative) 07/11/20 09:30 Urine Blood Neg (Negative) 07/11/20 09:30 Urine Nitrite Neg (Negative) 07/11/20 09:30 Urine Bilirubin Neg (Negative) 07/11/20 09:30 Urine Urobilinogen 2.0 mg/dL (<2.0) 07/11/20 09:30 Ur Leukocyte Esterase Neg (Negative) 07/11/20 09:30 Urine WBC (Auto) 1.0 /HPF (0.0-6.0) 07/11/20 09:30 Urine RBC (Auto) 1.0 /HPF (0.0-6.0) 07/11/20 09:30 U Epithel Cells (Auto) 1.0 /HPF (0-13.0) 07/11/20 09:30 Urine Mucus Few /HPF 07/11/20 09:30 Urine Creatinine 89.2 mg/dL (0.1-20.0) H 07/31/20 16:00 Urine Sodium 26 mmol/L 07/31/20 16:00 Urine Total Protein 108 mg/dL (5-11.8) H 07/31/20 16:00 Vancomycin Trough 28.2 ug/mL (5.0-20.0) H 07/31/20 14:14 Random Vancomycin 7.9 ug/mL (0-40.0) 08/02/20 06:37 Coronavirus (PCR) Positive (Negative) A 07/23/20 Unknown SARS-CoV-2 IgG Ab Reactive (NonReactive) A 07/15/20 14:30 Blood Type O POSITIVE 07/09/20 15:30 Antibody Screen Negative 07/09/20 15:30 Microbiology: Microbiology 07/30/20 17:43 Peripheral/Venous Blood Culture - Final NO GROWTH AFTER 5 DAYS 07/30/20 17:43 Peripheral/Venous Blood Culture - Final NO GROWTH AFTER 5 DAYS - Diagnostic Impressions Diagnostic Impressions: Echocardiogram 07/19/20 13:13 Transthoracic Echocardiogram Indication: CHF BP: 106/58 Conclusions *The left ventricular systolic function is within normal limits. There are no wall motion abnormalities observed. *The estimated ejection fraction is 60-65%. *Normal left ventricular diastolic filling is observed. Findings Procedure Info: The study quality is fair. Left Ventricle: The left ventricular chamber size, wall thickness and systolic function are within normal limits. There are no wall motion abnormalities observed. Ejection fraction is normal. The estimated ejection fraction is 60-65%. Normal left ventricular diastolic filling is observed. Left Atrium: The left atrium is normal in size with no visual thrombus identified. Right Ventricle: The right ventricular chamber size and systolic function are within normal limits. Right Atrium: The right atrium appears normal. Aortic Valve: The aortic valve is trileaflet. The leaflets are thin with normal excursion. There is no aortic stenosis or regurgitation present. Mitral Valve: The mitral valve leaflets are mildly thickened. There is trace of mitral regurgitation. There is no evidence of mitral stenosis. Tricuspid Valve: The tricuspid valve leaflets are normal. There is trace tricuspid regurgitation. The right ventricular systolic pressure is calculated at 14 mmHg. There is no tricuspid stenosis. Pulmonic Valve: The pulmonic valve appears normal. There is mild pulmonic regurgitation. There is no pulmonic stenosis. Pericardium: The pericardium appears normal. Aorta: The aorta appears normal. Pulmonary Artery: The main pulmonary artery appears normal. Venous: The inferior vena cava appears normal in size. There is a greater than 50% respiratory change in the inferior vena cava dimension. Measurements Chambers 2D Name Value Normal Range IVSd (2D) 1.08 cm (0.6 - 1.1) LVPWd (2D) 0.91 cm (0.6 - 1.1) LVIDd (2D) 4.61 cm (3.7 - 5.6) LVIDs (2D) 3.12 cm (2 - 3.8) LV FS (2D) 32.38 % - EF Teichholz (2D) 60.72 % - Ao root diameter (2D) 3.01 cm (2 - 3.7) Volumes/Mass Name Value Normal Range LA ESV SP 4CH (A/L) 57.18 ml - LA ESV SP 2CH (A/L) 62.63 ml - LA ESV BP (A/L) 60.68 ml - LA ESV BP (A/L) index 28.22 ml/m2 - LA ESV SP 4CH (MOD) 51.17 ml - LA ESV SP 2CH (MOD) 57.8 ml - LA ESV BP (MOD) 54.73 ml - LA ESV BP (MOD) index 25.45 ml/m2 - LV EDV SP 4CH (MOD) 115.34 ml - LV ESV SP 4CH (MOD) 43.26 ml - EF SP 4CH (MOD) 62.5 % - LV EDV SP 2CH (MOD) 43.71 ml - LV ESV SP 2CH (MOD) 17.14 ml - EF SP 2CH (MOD) 60.79 % - LV EDV BP 73.15 ml - LV ESV BP 27.92 ml - BP EF (MOD) 61.83 % - Diastolic/Systolic Function Name Value Normal Range MV E-wave Vmax 0.88 m/sec - MV deceleration time 157.66 msec - MV A-wave Vmax 0.91 m/sec - MV E:A ratio 0.96 ratio - Aortic Valve Name Value Normal Range AV Vmax 1.54 m/sec - AV VTI 31.46 cm - AV peak gradient 9.51 mmHg - AV mean gradient 5.1 mmHg - LVOT diameter 1.95 cm - LVOT Vmax 1.21 m/sec - LVOT VTI 27.59 cm - LVOT peak gradient 5.83 mmHg - LVOT mean gradient 3.3 mmHg - SV LVOT 82.76 ml - SMITH (continuity Vmax) 2.35 cm2 - SMITH (continuity VTI) 2.63 cm2 - Ascending Ao 2.94 cm - Tricuspid Valve Name Value Normal Range TV E-wave Vmax 0.49 m/sec - TR Vmax 1.72 m/sec - TR peak gradient 11.86 mmHg - RAP 3 mmHg - RVSP 14 mmHg - IVC diameter 1.91 cm (1.2 - 2.3) Pulmonic Valve/Qp:Qs Name Value Normal Range PV Vmax 0.94 m/sec - PV peak gradient 3.54 mmHg - MI end-diastolic Vmax 0.54 m/sec - RVOT Vmax 0.68 m/sec - RVOT VTI 13.18 cm - RVOT peak gradient 1.82 mmHg - PV acceleration time 117.98 msec - Tejada/IV: Voiding Method Indwelling Catheter IV Catheter Type [Left Upper PICC Line arm] IV Catheter Type [Right INT / Saline Lock Forearm] IV Catheter Type [Left Wrist] INT / Saline Lock IV Catheter Type [Left Hand] Peripheral IV Active Medications - Current Medications Current Medications: Generic Name Dose Route Start Last Admin Trade Name Freq PRN Reason Stop Dose Admin Acetaminophen 650 mg 07/06/20 13:39 07/27/20 18:34 Tylenol PO 650 mg Q4H PRN Administration Pain MILD(1-3)/Fever >100.5/WILLETT Albuterol/Ipratropium 1 ampul 08/05/20 11:33 Duoneb *Not For Prn Use* IH TIDRT PRN Overdose Alprazolam 0.5 mg 07/07/20 12:28 07/27/20 03:15 Xanax PO 0.5 mg Q8H PRN Administration Anxiety Lipase/Protease/Amylase 1 each 07/08/20 14:50 Pancreazchristina Price 10,500 Unit FEEDTUBE PRN PRN For Clogged Feeding Tube Arformoterol Tartrate 15 mcg 07/07/20 09:15 08/05/20 08:27 Brovana Nebu IH 15 mcg Q12HRT ROMMEL Administration Ascorbic Acid 500 mg 07/08/20 22:00 08/05/20 10:52 Vitamin C PO 500 mg BID ROMMEL Administration Aspirin 81 mg 07/06/20 14:00 08/05/20 10:52 Baby Aspirin PO 81 mg QDAY ROMMEL Administration Budesonide 0.5 mg 07/07/20 09:15 08/05/20 08:27 Pulmicort IH 0.5 mg Q12HRT ROMMEL Administration Chlordiazepoxide HCl 75 mg 07/30/20 13:00 08/05/20 05:27 Librium PO 75 mg Q8H ROMMEL Administration Dextrose 50 ml 07/12/20 16:58 D50w (25gm) Syringe IV Q30MIN PRN Hypoglycemia Protocol Docusate Sodium 100 mg 07/16/20 22:00 08/05/20 10:55 Colace PO Not Given BID ROMMEL Fentanyl 50 mcg 07/08/20 13:16 07/29/20 15:45 Sublimaze IV 50 mcg Q10MIN PRN Administration ANALGESIA Gabapentin 600 mg 07/25/20 14:00 08/05/20 05:27 Gabapentin PO 600 mg Q8HR ROMMEL Administration Hydrophilic Ointment 1 applic 07/08/20 13:16 07/22/20 23:01 Vaseline Lip Therapy TP 1 applic Q2HR PRN Administration Dry Lips Hydroxychloroquine Sulfate 200 mg 07/07/20 10:00 08/05/20 10:52 Plaquenil PO 200 mg QDAY ROMMEL Administration Fentanyl Citrate 2,000 mcg in 100 mls @ 4.825 mls/hr 07/08/20 14:00 08/05/20 10:49 Fentanyl Drip Premix IV 4 mcg/kg/hr TITR ROMMEL 19.3 mls/hr Administration Protocol 1 MCG/KG/HR Midazolam HCl 100 mg/ Sodium 100 mls @ 2 mls/hr 07/08/20 15:00 08/05/20 12:51 Chloride IV 4 mg/hr TITR ROMMEL 4 mls/hr Titration Protocol 2 MG/HR Sodium Chloride 500 mls @ 10 mls/hr 07/15/20 15:00 Nacl 0.9% 500 Ml IV DIRECT ROMMEL Norepinephrine 4 mg in 250 mls @ 7.5 mls/hr 07/27/20 05:00 Levophed Drip 4 Mg/Ns 250 Ml IV TITR ROMMEL Protocol 2 MCG/MIN Vasopressin 20 unit/ Sodium 101 mls @ 9.09 mls/hr 07/30/20 13:00 08/04/20 14:25 Chloride IV 0 units/min TITR ROMMEL 0 mls/hr Titration Protocol 0.03 UNITS/MIN Phenylephrine HCl 100 mg/ 100 mls @ 3 mls/hr 07/30/20 15:00 08/04/20 10:08 Sodium Chloride IV 0 mcg/min TITR ROMMEL 0 mls/hr Titration Protocol 50 MCG/MIN Dopamine HCl/Dextrose 800 mg in 250 mls @ 3.679 mls/hr 07/31/20 22:00 Intropin Drip 800 Mg/D5w 250 Ml IV TITR ROMMEL Protocol 2 MCG/KG/MIN Ceftriaxone Sodium 2 gm in 100 mls @ 200 mls/hr 08/02/20 10:00 08/05/20 10:51 Rocephin/Ns 2 Gm/100 Ml IV 200 mls/hr Q24HR ROMMEL Administration Protocol Vancomycin HCl 1,500 mg/ 530 mls @ 333.333 mls/hr 08/02/20 10:00 08/04/20 22:34 Sodium Chloride IV 333.333 mls/hr Q12HR ROMMEL Administration Heparin Sodium/Sodium Chloride 25,000 unit in 500 mls @ 30 mls/hr 08/05/20 13:00 08/05/20 13:25 Heparin/ 0.45% Nacl-25,000 Unit/500 Ml IV 1,500 units/hr TITR ROMMEL 30 mls/hr Administration Protocol 1,500 UNITS/HR Propofol 500 mg in 50 mls @ 2.946 mls/hr 08/05/20 13:00 08/05/20 12:55 Propofol IV 5 mcg/kg/min TITR ROMMEL 2.946 mls/hr Administration Protocol 5 MCG/KG/MIN Insulin Glargine 16 units 08/04/20 08:26 08/05/20 10:54 Lantus SUB-Q 16 units Q24H ROMMEL Administration Insulin Human Regular 0 unit 08/01/20 00:00 08/05/20 05:54 Humulin R SUB-Q Not Given Q6HR [facility] Protocol Lansoprazole 30 mg 07/10/20 10:00 08/05/20 10:52 Prevacid Solutab FEEDTUBE 30 mg QDAY [facility] Administration Methylprednisolone Sodium Succinate 40 mg 07/22/20 14:00 08/05/20 05:26 Solu-Medrol IV 40 mg Q8H ROMMEL Administration Metoclopramide HCl 5 mg 08/05/20 12:00 Reglan IV Q6HR [facility] Multi-Ingred Cream/Lotion/Oil/Oint 1 applic 07/08/20 13:16 Artificial Tears Ophth Oint OU Q4HR PRN Dry Eye(s) Ondansetron HCl 4 mg 07/06/20 13:39 07/08/20 10:44 Zofran IV 4 mg Q8H PRN Administration Nausea And Vomiting Polyethylene Glycol 17 gm 07/29/20 12:00 08/05/20 10:55 Miralax 3350 PO Not Given DAILY [facility] Pseudoephedrine/Acetam/Chlorphenir 10 ml 07/07/20 01:17 07/08/20 08:30 Robitussin Ac PO 10 ml Q4H PRN Administration Cough Quetiapine Fumarate 200 mg 07/25/20 22:00 08/05/20 10:52 Seroquel PO 200 mg BID ROMMEL Administration Quetiapine Fumarate 100 mg 07/25/20 22:00 08/04/20 22:33 Seroquel PO 100 mg BID ROMMEL Administration Simple Syrup 15 ml 07/08/20 14:50 Simple Syrup FEEDTUBE PRN PRN Hypoglycemia Simple Syrup 30 ml 07/08/20 14:50 Simple Syrup FEEDTUBE PRN PRN Hypoglycemia Sodium Bicarbonate 325 mg 07/08/20 14:50 Sodium Bicarbonate FEEDTUBE PRN PRN For Clogged Feeding Tube Sodium Chloride 10 ml 07/06/20 14:00 08/05/20 10:55 Sodium Chloride Flush Syringe 10 Ml IV 10 ml BID ROMMEL Administration Sodium Chloride 10 ml 07/06/20 13:39 07/26/20 06:31 Sodium Chloride Flush Syringe 10 Ml IV 10 ml PRN PRN Administration LINE FLUSH Venlafaxine HCl 37.5 mg 07/07/20 10:00 08/05/20 10:51 Effexor PO 37.5 mg DAILY ROMMEL Administration Zinc Sulfate 220 mg 07/08/20 22:00 08/04/20 22:33 Zinc Sulfate PO 220 mg BID ROMMEL Administration Nutrition/Malnutrition Assess - Dietary Evaluation Nutrition/Malnutrition Findings: Nutrition Notes Start: 07/08/20 14:02 Freq: Status: Active Protocol: Document 08/01/20 11:00 EN (Rec: 08/01/20 12:16 EN [id number]) Co-Sign 08/01/20 11:00 NHALL Nutrition Notes Initial or Follow up Reassessment Current Diagnosis Acute Kidney Injury, Hypertension,Heart Failure Other Pertinent Diagnosis Acute respiratory failure, COVID(+), GERD, Lupus, Anemia Current Diet Vital AF 1.2 at 55 mL/hr (goal rate) Labs/Tests Na 132 K+ 2.8 BUN 47 POC Glu 246 Pertinent Medications Diprivan Fentanyl Solu-medrol Humulin KCl Vitamin C Zinc Sulfate Height 5 ft 5 in Weight 98.1 kg [place] Body Weight (kg) 56.81 BMI 35.9 Weight change and time frame Wt change noted Weight Status Obese Subjective/Other Information F/u for TF tolerance. Pt remains on vent and is no longer proned. TF infusing at 20 ml/hr and pt tolerating well. RN reports pt had 4 BM last night and 1 BM this morning. Percent of energy/protein needs met: 36%/36% Burn Absent Trauma Absent GI Symptoms None Current % PO Negligible Minimum of two criteria No physical signs of malnutrition #1 Nutrition Diagnosis Inadequate oral intake Diagnosis Progress(for reassessment Continues documentation) Is patient on ventilator? Yes Is Patient Ambulatory and/or Out of Bed No REE-([place]-confined to bed) 1937.676 Kcal/Kg value to use for calculation 17 Approximate Energy Requirements Using 1668 kcal/Kg Calculation Used for Recommendations Kcal/kg Additional Notes Pro: greater than 114 g (>2 g/ kg IBW) Fluid: 1ml/kcal or per MD Nutrition Intervention Change Diet Order: Continue TF Nutrition Support: Vital AF at 55 ml/hr Flush 75 ml q4h 16 hr prone: Vital AF 1.2 at 10 ml for 16hr . Flush 50 ml q4h. For remaining 8 hours, Vital AF 1.2 at 135 ml/hr. Flush 125 ml q4h. Kcal 1,584 Protein (gm) 99 Fluid (mL) 1,070 Goal #1 Meet at least 80% of protein and energy needs via TF Anticipated Discharge Needs: Cannot determine at this time Follow-Up By: 08/05/20 Additional Comments Follow for TF rate/tolerance and BM pattern
[2020-08-05 14:40] LABS: C-Reactive Protein 26.4 mg/dL (0.00-1.30)
--- NOTE | 2020-08-05 14:46 | XRay Report ---
ABDOMEN 1 VIEW(S) INDICATION / CLINICAL INFORMATION: vomiting; gastric dilatation. COMPARISON: Yesterday FINDINGS: TUBES / LINES: Nasogastric tube terminates in the mid to distal stomach. BOWEL GAS PATTERN: Moderate to severe gastric dilatation is unchanged. There is moderate gas througho ut the small bowel loops suggestive of an ileus. No convincing obstructive pattern. FREE AIR / EXTRALUMINAL GAS: None seen. ADDITIONAL FINDINGS: No significant additional findings. IMPRESSION: Probable ileus. Signer Name: Gabino Alvarez Jr, MD Signed: 08/05/2020 2:42 PM Workstation Name: [id number]
[2020-08-05] MEDS: QUEtiapine 100 MG TAB PO SCH ×2 (16:27→21:03)
--- NOTE | 2020-08-05 16:34 | Progress Note ---
Assessment and Plan 50 yo F with 1. b/l PTX with subcutaneous emphysema 2. COVID PNA 3. VDRF 4. Septic shock Pt stable. Off pressors. PEEP 16 from 18 and FIO2 70% from 90% CXR 08/05/20 - apical right PTX better, no L PTX. R chest tube x2 and L chest tube x1 in position. Plan: 1. all chest tubes @ [id number] suction via pleurevac 2. Monitor air leaks from right chest tubes - may take time to resolve as patient is on high PEEP. 3. vent management per ICU team 4. Daily CXR Thank you, please call with any questions or concerns. Evaluation and treatment of this patient was during the time of the national and state emergency arising from COVID19 coronavirus pandemic. Treatment and procedures performed meet the current and available best practice and guidelines for patient during the COVID pandemic. Subjective Date of service: 08/05/20 Narrative: Patient seen and examined. No overnight events noted. T-max 100.4 Objective Vital Signs - 12hr 08/05/20 08/05/20 08/05/20 04:46 05:00 05:15 Temperature Pulse Rate 120 H 137 H 155 H Pulse Rate [ Bilateral Throughout] Pulse Rate [ From Monitor] Respiratory 27 H 31 H 25 H Rate Respiratory Rate [Bilateral Throughout] Blood Pressure 209/108 238/92 168/84 O2 Sat by Pulse 99 95 Oximetry 08/05/20 08/05/20 08/05/20 05:30 05:46 06:00 Temperature Pulse Rate 149 H 147 H 144 H Pulse Rate [ Bilateral Throughout] Pulse Rate [ From Monitor] Respiratory 25 H 21 19 Rate Respiratory Rate [Bilateral Throughout] Blood Pressure 160/89 170/80 163/79 O2 Sat by Pulse 99 100 100 Oximetry 08/05/20 08/05/20 08/05/20 06:16 06:30 06:45 Temperature Pulse Rate 145 H 144 H 143 H Pulse Rate [ Bilateral Throughout] Pulse Rate [ From Monitor] Respiratory 19 19 19 Rate Respiratory Rate [Bilateral Throughout] Blood Pressure 152/77 139/76 132/72 O2 Sat by Pulse 100 100 100 Oximetry 08/05/20 08/05/20 08/05/20 07:00 07:16 07:30 Temperature Pulse Rate 141 H 139 H 141 H Pulse Rate [ Bilateral Throughout] Pulse Rate [ From Monitor] Respiratory 17 15 16 Rate Respiratory Rate [Bilateral Throughout] Blood Pressure 143/71 131/67 136/70 O2 Sat by Pulse 100 100 100 Oximetry 08/05/20 08/05/20 08/05/20 07:46 08:00 08:16 Temperature 100.4 F H Pulse Rate 140 H 142 H Pulse Rate [ Bilateral Throughout] Pulse Rate [ 113 H From Monitor] Respiratory 16 14 Rate Respiratory Rate [Bilateral Throughout] Blood Pressure 131/68 141/74 137/66 O2 Sat by Pulse 100 100 100 Oximetry 08/05/20 08/05/20 08/05/20 08:25 08:30 08:46 Temperature Pulse Rate 135 H 136 H 146 H Pulse Rate [ Bilateral Throughout] Pulse Rate [ From Monitor] Respiratory 17 33 H Rate Respiratory Rate [Bilateral Throughout] Blood Pressure 137/66 143/72 137/73 O2 Sat by Pulse 99 99 98 Oximetry 08/05/20 08/05/20 08/05/20 09:00 09:10 09:15 Temperature Pulse Rate 149 H 150 H Pulse Rate [ 138 H Bilateral Throughout] Pulse Rate [ From Monitor] Respiratory 33 H 29 H Rate Respiratory 30 H Rate [Bilateral Throughout] Blood Pressure 137/64 112/66 O2 Sat by Pulse 100 100 Oximetry 08/05/20 08/05/20 08/05/20 09:30 09:46 10:00 Temperature Pulse Rate 149 H 147 H 144 H Pulse Rate [ Bilateral Throughout] Pulse Rate [ From Monitor] Respiratory 30 H 30 H 30 H Rate Respiratory Rate [Bilateral Throughout] Blood Pressure 120/58 137/64 117/58 O2 Sat by Pulse 100 100 100 Oximetry 08/05/20 08/05/20 08/05/20 10:16 10:30 10:46 Temperature Pulse Rate 143 H 145 H 145 H Pulse Rate [ Bilateral Throughout] Pulse Rate [ From Monitor] Respiratory 27 H 27 H 31 H Rate Respiratory Rate [Bilateral Throughout] Blood Pressure 116/59 126/60 120/53 O2 Sat by Pulse 100 100 100 Oximetry 08/05/20 08/05/20 08/05/20 11:00 11:16 11:30 Temperature Pulse Rate 143 H 145 H 146 H Pulse Rate [ Bilateral Throughout] Pulse Rate [ From Monitor] Respiratory 31 H 32 H 31 H Rate Respiratory Rate [Bilateral Throughout] Blood Pressure 123/54 123/61 115/58 O2 Sat by Pulse 100 100 100 Oximetry 08/05/20 08/05/20 08/05/20 11:46 12:00 12:02 Temperature 98.2 F Pulse Rate 144 H 142 H 142 H Pulse Rate [ Bilateral Throughout] Pulse Rate [ 113 H From Monitor] Respiratory 32 H 31 H Rate Respiratory Rate [Bilateral Throughout] Blood Pressure 122/49 120/52 120/52 O2 Sat by Pulse 100 100 97 Oximetry 08/05/20 08/05/20 08/05/20 12:16 12:30 12:46 Temperature Pulse Rate 138 H 137 H 135 H Pulse Rate [ Bilateral Throughout] Pulse Rate [ From Monitor] Respiratory 31 H 30 H 33 H Rate Respiratory Rate [Bilateral Throughout] Blood Pressure 119/59 121/62 120/62 O2 Sat by Pulse 98 96 98 Oximetry 08/05/20 08/05/20 08/05/20 13:00 13:16 13:30 Temperature Pulse Rate 135 H 132 H 131 H Pulse Rate [ Bilateral Throughout] Pulse Rate [ From Monitor] Respiratory 30 H 18 13 Rate Respiratory Rate [Bilateral Throughout] Blood Pressure 128/61 123/72 115/61 O2 Sat by Pulse 98 96 98 Oximetry 08/05/20 08/05/20 08/05/20 13:46 14:00 14:16 Temperature Pulse Rate 130 H 129 H 128 H Pulse Rate [ Bilateral Throughout] Pulse Rate [ From Monitor] Respiratory 13 13 14 Rate Respiratory Rate [Bilateral Throughout] Blood Pressure 119/64 114/65 111/66 O2 Sat by Pulse 98 98 98 Oximetry 08/05/20 16:08 Temperature Pulse Rate 122 H Pulse Rate [ Bilateral Throughout] Pulse Rate [ From Monitor] Respiratory Rate Respiratory Rate [Bilateral Throughout] Blood Pressure 131/74 O2 Sat by Pulse 98 Oximetry - General physical appearance Narrative Exam: Gen.: Intubated and sedated. ENT: ET tube and OG tube in place. Respiratory: Right chest tube #1 with serosanguineous drainage in tubing, continuous air leak. Right chest tube #2 with serosanguineous drainage in tubing, continuous air leak. Left chest tube no leak. - Labs 08/05/20 13:35 08/05/20 08:30 Diabetes panel 08/05/20 08/05/20 Range/Units 08:30 13:35 Sodium 149 H (137-145) mmol/L Potassium 3.9 (3.6-5.0) mmol/L Chloride 112.9 H (98-107) mmol/L Carbon Dioxide 32 H D (22-30) mmol/L BUN 25 H (7-17) mg/dL Creatinine 0.6 (0.6-1.2) mg/dL Glucose 184 H (65-100) mg/dL Calcium 8.5 (8.4-10.2) mg/dL AST 21 (5-40) units/L ALT 115 H (7-56) units/L Alkaline Phosphatase 85 (35-129) units/L Total Protein 5.5 L (6.3-8.2) g/dL Albumin 2.3 L (3.9-5) g/dL Triglycerides 337 H (2-149) mg/dL Calcium panel 08/05/20 Range/Units 08:30 Calcium 8.5 (8.4-10.2) mg/dL Albumin 2.3 L (3.9-5) g/dL Pituitary panel 08/05/20 Range/Units 08:30 Sodium 149 H (137-145) mmol/L Potassium 3.9 (3.6-5.0) mmol/L Chloride 112.9 H (98-107) mmol/L Carbon Dioxide 32 H D (22-30) mmol/L BUN 25 H (7-17) mg/dL Creatinine 0.6 (0.6-1.2) mg/dL Glucose 184 H (65-100) mg/dL Calcium 8.5 (8.4-10.2) mg/dL Adrenal panel 08/05/20 Range/Units 08:30 Sodium 149 H (137-145) mmol/L Potassium 3.9 (3.6-5.0) mmol/L Chloride 112.9 H (98-107) mmol/L Carbon Dioxide 32 H D (22-30) mmol/L BUN 25 H (7-17) mg/dL Creatinine 0.6 (0.6-1.2) mg/dL Glucose 184 H (65-100) mg/dL Calcium 8.5 (8.4-10.2) mg/dL Total Bilirubin 0.30 (0.1-1.2) mg/dL AST 21 (5-40) units/L ALT 115 H (7-56) units/L Alkaline Phosphatase 85 (35-129) units/L Total Protein 5.5 L (6.3-8.2) g/dL Albumin 2.3 L (3.9-5) g/dL
[2020-08-05] MEDS: VANCOMYCIN 1,500 MG in SODIUM CHLORIDE 0.9% 500 ML 500 ML IV SCH ×2 (16:44→22:29)
[2020-08-05] MEDS: METOCLOPRAMIDE 10 MG/2 ML INJ IV SCH ×2 (16:46→19:07)
[2020-08-05] MEDS: ZINC SULFATE 220 MG CAP PO SCH ×2 (16:46→21:03)
[2020-08-06] MEDS: ARFORMOTEROL 15 MCG/2 ML NEBU IH SCH ×3 (00:16→20:10)
[2020-08-06] MEDS: BUDESONIDE 0.5 MG/2 ML NEBU IH SCH ×3 (00:17→20:10)
[2020-08-06] MEDS: METOCLOPRAMIDE 10 MG/2 ML INJ IV SCH ×5 (00:20→23:33)
[2020-08-06] MEDS: MIDAZOLAM 100 MG in SODIUM CHLORIDE 0.9% 80 ML IV SCH ×2 (01:21→17:12)
[2020-08-06] MEDS: fentaNYL DRIP Premix 2,000 MCG/100 ML BAG IV SCH ×5 (01:24→21:04)
[2020-08-06] MEDS: PROPOFOL 500 MG/50 ML VIAL IV SCH ×3 (01:27→22:41)
--- NOTE | 2020-08-06 04:09 | XRay Report ---
CHEST 1 VIEW INDICATION / CLINICAL INFORMATION: PTX, vent. COMPARISON: Chest radiograph one day prior FINDINGS: SUPPORT DEVICES: Stable position of endotracheal tube, enteric tube, left-sided PICC, and bilateral c hest tubes. HEART / MEDIASTINUM: Stable. LUNGS / PLEURA: Patchy bilateral airspace opacities are not significant changed from prior examinatio n. Probable tiny residual right pneumothorax, with lucency noted along the right hemidiaphragm. No de finite left pneumothorax identified. ADDITIONAL FINDINGS: Unchanged subcutaneous emphysema in the neck and chest. Unchanged gaseous disten tion of the stomach. IMPRESSION: 1. No significant change. Signer Name: Christina Ramos MD Signed: 08/06/2020 4:05 AM Workstation Name: [id number]
[2020-08-06 05:07] LABS: Hematocrit 22.4 % (30.3-42.9); Hemoglobin 7.2 gm/dl (10.1-14.3); Mean Corpuscular HGB Conc 32 % (30-34); Mean Corpuscular Volume 93 fl (79-97); Platelet Count 194 K/mm3 (140-440); Red Cell Distribution Width 16.9 % (13.2-15.2)
[2020-08-06 05:26] LABS: Alanine Aminotransferase 77 units/L (7-56); Albumin 2.2 g/dL (3.9-5); Blood Urea Nitrogen 27 mg/dL (7-17); Calcium 8.3 mg/dL (8.4-10.2); Hemolysis Index 0
[2020-08-06 05:28] LABS: BUN/Creatinine Ratio 45
[2020-08-06] MEDS: GABAPENTIN 300 MG CAP PO SCH ×3 (06:14→21:06)
[2020-08-06] MEDS: HEPARIN/ 0.45% NACL DRIP 25,000 UNIT/500 ML BAG IV SCH ×2 (06:15→21:05)
[2020-08-06] MEDS: methylPREDNISolone Sod Succinate 40 MG/1 ML INJ IV SCH ×3 (06:16→21:06)
[2020-08-06] MEDS: INSULIN REGULAR, HUMAN 100 UNIT/ML 3ML VIAL SUB-Q SCH ×3 (06:16→23:35)
[2020-08-06] MEDS: chlordiazePOXIDE 25 MG CAP PO SCH ×3 (06:16→21:06)
[2020-08-06 06:31] LABS: Band Neutrophils # (Manual) 0.5 K/mm3; Basophils % (Manual) 0 % (0.0-1.8); Eosinophils % (Manual) 0 % (0.0-4.3); Total Cells Counted 100
[2020-08-06 06:32] LABS: Anisocytosis Few; Hypochromasia 1+; Platelet Estimate Consistent w Auto; Schistocytes Rare
--- NOTE | 2020-08-06 07:29 | Progress Note ---
Assessment and Plan Cultures: Blood cultures 07/07/2020 no growth SARS COV2- IgG negative Sputum culture 07/08/2020 usual respiratory kerwin Blood culture 07/11/2020 no growth Blood culture 07/19/2020 no growth Tracheal aspirate 07/30/2020 MRSA and E. coli A/P: 50-year-old female with CHF, asthma, hypertension, lupus was admitted to the hospital with complaints of fever, shortness of breath. Of note, she was seen last week due to an asthma exacerbation when her SARS-CoV-2 PCR and IgG were both negative. She was treated with steroids. She reportedly then went to [place] and tested positive for COVID-19 and was discharged from the hospital on 07/05/2020: #Sepsis with septic shock: off pressors, low grade fever. Repeat blood cultures negative. Urinalysis negative. Source VAP +/- sinusitis. procal 119-->1.3, CRP 49-->26. #Acute hypoxic respiratory failure: Remains intubated, likely secondary to VAP and bilateral pneumothorax. #Bilateral pneumothorax: Status post bilateral chest tube, surgery on board #VAP: Secondary to MRSA and E. coli. Chest x-ray not especially concerning, however worsening pulmonary status with associated fevers. Procalcitonin massively elevated even in the setting of acute renal injury. #Critical Covid pneumonia: Completed remdesivir, IV steroids. #Lupus: On Plaquenil. #CHF #Asthma #MAHOGANY: Possible in setting of vancomycin, resolved Recs: -remove NGT-nostril with purulence ?sinusitis -repeat blood cultures -Continue vancomycin goal trough 10-20 for now -day 9 -Continue ceftriaxone 2 g every 24 hours-day 9 -Started on full anticoagulation Guarded prognosis will follow Eneida Quiñones MD [facility]) Office [phone] Subjective Date of service: 08/06/20 Principal diagnosis: Ac hypoxemic resp failure; PNA; COVID-19 infxn; SLE; Asthma exacerbation Interval history: Patient remains intubated, low grade fever, off pressors today. On hep drip. Objective - Exam Narrative Exam: General appearance: Sedated intubated Eyes: anicteric sclerae, moist conjunctivae; no lid-lag; PERRLA HENT: Normocephalic, Atraumatic; normal external ears, nares +NGT w purulence, oropharynx limited endotracheal tube in place Neck: supple, tracheal midline, no JVD Lungs: Bilateral scattered crackles, bilateral chest tubes, chest tubes x2 on the right CV: Tachycardic Abdomen: Soft, non-tender; no masses or hepatosplenomegaly Extremities: Bilateral leg edema Skin: Bilateral neck and chest subcutaneous emphysema Psych: Sedated Neuro: Sedated - Constitutional Vitals: Vital Signs Temp Pulse Resp BP Pulse Ox 100.2 F H 81 30 H 131/71 100 08/06/20 03:12 08/06/20 06:30 08/06/20 06:30 08/06/20 06:30 08/06/20 06:30 Temperature -Last 24 Hours Temperature 100.2 F Temperature 99.9 F Temperature 99.7 F Temperature 98.7 F Temperature 98.2 F Temperature 100.4 F - Labs CBC & Chem 7: 08/06/20 04:00 08/06/20 04:00 Labs: Abnormal lab results 08/05/20 08/05/20 08/05/20 Range/Units 08:30 08:30 11:19 WBC 16.5 H (4.5-11.0) K/mm3 RBC 2.79 L (3.65-5.03) M/mm3 Hgb 8.3 L (10.1-14.3) gm/dl Hct 26.1 L (30.3-42.9) % RDW 16.7 H (13.2-15.2) % Seg Neuts % (Manual) (40.0-70.0) % Lymphocytes % (Manual) 6.0 L (13.4-35.0) % Seg Neutrophils # Man 10.1 H (1.8-7.7) K/mm3 Lymphocytes # (Manual) 1.0 L (1.2-5.4) K/mm3 PT (12.2-14.9) Sec. INR (0.87-1.13) D-Dimer (0-234) ng/mlDDU POC ABG pCO2 (32.0-48.0) mmHg POC ABG pO2 (83-108) mmHg ABG Hemoglobin (12.0-17.5) ABG Chloride (98-107) mmol/L ABG Glucose (65-95) mg/dL Sodium 149 H (137-145) mmol/L Chloride 112.9 H (98-107) mmol/L Carbon Dioxide 32 H D (22-30) mmol/L BUN 25 H (7-17) mg/dL Glucose 184 H (65-100) mg/dL POC Glucose 185 H (70-105) mg/dL Calcium (8.4-10.2) mg/dL ALT 115 H (7-56) units/L C-Reactive Protein (0.00-1.30) mg/dL Total Protein 5.5 L (6.3-8.2) g/dL Albumin 2.3 L (3.9-5) g/dL Triglycerides (2-149) mg/dL Arterial Blood Glucose (65-95) mg/dL Vancomycin Trough (5.0-20.0) ug/mL 08/05/20 08/05/20 08/05/20 Range/Units 13:35 13:35 13:35 WBC (4.5-11.0) K/mm3 RBC (3.65-5.03) M/mm3 Hgb 7.7 L (10.1-14.3) gm/dl Hct 24.6 L (30.3-42.9) % RDW (13.2-15.2) % Seg Neuts % (Manual) (40.0-70.0) % Lymphocytes % (Manual) (13.4-35.0) % Seg Neutrophils # Man (1.8-7.7) K/mm3 Lymphocytes # (Manual) (1.2-5.4) K/mm3 PT 15.4 H (12.2-14.9) Sec. INR 1.22 H (0.87-1.13) D-Dimer 4748.32 H (0-234) ng/mlDDU POC ABG pCO2 (32.0-48.0) mmHg POC ABG pO2 (83-108) mmHg ABG Hemoglobin (12.0-17.5) ABG Chloride (98-107) mmol/L ABG Glucose (65-95) mg/dL Sodium (137-145) mmol/L Chloride (98-107) mmol/L Carbon Dioxide (22-30) mmol/L BUN (7-17) mg/dL Glucose (65-100) mg/dL POC Glucose (70-105) mg/dL Calcium (8.4-10.2) mg/dL ALT (7-56) units/L C-Reactive Protein 26.40 H (0.00-1.30) mg/dL Total Protein (6.3-8.2) g/dL Albumin (3.9-5) g/dL Triglycerides 337 H (2-149) mg/dL Arterial Blood Glucose (65-95) mg/dL Vancomycin Trough (5.0-20.0) ug/mL 08/05/20 08/05/20 08/05/20 Range/Units 16:56 20:07 23:29 WBC (4.5-11.0) K/mm3 RBC (3.65-5.03) M/mm3 Hgb (10.1-14.3) gm/dl Hct (30.3-42.9) % RDW (13.2-15.2) % Seg Neuts % (Manual) (40.0-70.0) % Lymphocytes % (Manual) (13.4-35.0) % Seg Neutrophils # Man (1.8-7.7) K/mm3 Lymphocytes # (Manual) (1.2-5.4) K/mm3 PT (12.2-14.9) Sec. INR (0.87-1.13) D-Dimer (0-234) ng/mlDDU POC ABG pCO2 (32.0-48.0) mmHg POC ABG pO2 (83-108) mmHg ABG Hemoglobin (12.0-17.5) ABG Chloride (98-107) mmol/L ABG Glucose (65-95) mg/dL Sodium (137-145) mmol/L Chloride (98-107) mmol/L Carbon Dioxide (22-30) mmol/L BUN (7-17) mg/dL Glucose (65-100) mg/dL POC Glucose 120 H 156 H (70-105) mg/dL Calcium (8.4-10.2) mg/dL ALT (7-56) units/L C-Reactive Protein (0.00-1.30) mg/dL Total Protein (6.3-8.2) g/dL Albumin (3.9-5) g/dL Triglycerides (2-149) mg/dL Arterial Blood Glucose (65-95) mg/dL Vancomycin Trough 27.0 H (5.0-20.0) ug/mL 08/06/20 08/06/20 08/06/20 Range/Units 04:00 04:00 05:32 WBC 12.6 H (4.5-11.0) K/mm3 RBC 2.40 L (3.65-5.03) M/mm3 Hgb 7.2 L (10.1-14.3) gm/dl Hct 22.4 L (30.3-42.9) % RDW 16.9 H (13.2-15.2) % Seg Neuts % (Manual) 86.0 H (40.0-70.0) % Lymphocytes % (Manual) 5.0 L (13.4-35.0) % Seg Neutrophils # Man 10.8 H (1.8-7.7) K/mm3 Lymphocytes # (Manual) 0.6 L (1.2-5.4) K/mm3 PT (12.2-14.9) Sec. INR (0.87-1.13) D-Dimer (0-234) ng/mlDDU POC ABG pCO2 (32.0-48.0) mmHg POC ABG pO2 (83-108) mmHg ABG Hemoglobin (12.0-17.5) ABG Chloride (98-107) mmol/L ABG Glucose (65-95) mg/dL Sodium 147 H (137-145) mmol/L Chloride 112.5 H (98-107) mmol/L Carbon Dioxide (22-30) mmol/L BUN 27 H (7-17) mg/dL Glucose 193 H (65-100) mg/dL POC Glucose 155 H (70-105) mg/dL Calcium 8.3 L (8.4-10.2) mg/dL ALT 77 H (7-56) units/L C-Reactive Protein (0.00-1.30) mg/dL Total Protein 5.0 L (6.3-8.2) g/dL Albumin 2.2 L (3.9-5) g/dL Triglycerides (2-149) mg/dL Arterial Blood Glucose (65-95) mg/dL Vancomycin Trough (5.0-20.0) ug/mL 08/06/20 Range/Units Unknown WBC (4.5-11.0) K/mm3 RBC (3.65-5.03) M/mm3 Hgb (10.1-14.3) gm/dl Hct (30.3-42.9) % RDW (13.2-15.2) % Seg Neuts % (Manual) (40.0-70.0) % Lymphocytes % (Manual) (13.4-35.0) % Seg Neutrophils # Man (1.8-7.7) K/mm3 Lymphocytes # (Manual) (1.2-5.4) K/mm3 PT (12.2-14.9) Sec. INR (0.87-1.13) D-Dimer (0-234) ng/mlDDU POC ABG pCO2 50.5 H (32.0-48.0) mmHg POC ABG pO2 70.5 L (83-108) mmHg ABG Hemoglobin 8.3 L (12.0-17.5) ABG Chloride 113.0 H (98-107) mmol/L ABG Glucose 204 H (65-95) mg/dL Sodium (137-145) mmol/L Chloride (98-107) mmol/L Carbon Dioxide (22-30) mmol/L BUN (7-17) mg/dL Glucose (65-100) mg/dL POC Glucose (70-105) mg/dL Calcium (8.4-10.2) mg/dL ALT (7-56) units/L C-Reactive Protein (0.00-1.30) mg/dL Total Protein (6.3-8.2) g/dL Albumin (3.9-5) g/dL Triglycerides (2-149) mg/dL Arterial Blood Glucose 204 H (65-95) mg/dL Vancomycin Trough (5.0-20.0) ug/mL
[2020-08-06] MEDS: ASPIRIN 81 MG TAB CHEW PO SCH (09:46)
[2020-08-06] MEDS: HYDROXYCHLOROQUINE 200 MG TAB PO SCH (09:46)
[2020-08-06] MEDS: QUEtiapine 100 MG TAB PO SCH ×2 (09:47→21:07)
[2020-08-06] MEDS: QUEtiapine 200 MG TAB PO SCH ×2 (09:47→21:06)
[2020-08-06] MEDS: LANSOPRAZOLE 30 MG SOLUTAB FEEDTUBE SCH (09:47)
[2020-08-06] MEDS: ASCORBIC ACID 500 MG TAB PO SCH ×2 (09:47→21:06)
[2020-08-06] MEDS: INSULIN GLARGINE 100 UNITS/ML SUB-Q SCH (09:47)
[2020-08-06] MEDS: VENLAFAXINE 37.5 MG TAB PO SCH (09:47)
[2020-08-06] MEDS: ZINC SULFATE 220 MG CAP PO SCH ×2 (09:47→21:06)
[2020-08-06] MEDS: cefTRIAXone/NS 2 GM/100 ML 2 GM/100 ML BAG IV SCH (09:48)
[2020-08-06] MEDS: DOCUSATE SODIUM 100 MG/10 ML ORAL LIQD PO SCH ×2 (11:29→21:08)
[2020-08-06] MEDS: POLYETHYLENE GLYCOL 3350 17 GM POWDER PO SCH (11:29)
--- NOTE | 2020-08-06 12:48 | Progress Note ---
Assessment and Plan - state D-dimer - resume full dose anticoagulation with IV Heparin - follow nephrology consultation - resume Propofol and increase sedation re: tachycardia (SVT) and increased work of breathing - increased free water to 200 mls q4h po - Reglan 5 mg IV q6h - discontinue alves catheter - NGT to LIS X 4 hours then resume tube feeds - get KUB re: gastric dilatation and emesis - continue chest tubes to continuous suction (surgery assistance appreciated) - FiO2 reduced to 90% - reduced peep to 16 (O2 sats 97%) - continue sedation and target RASS -2 to -3 acutely - repeat ABG in am - growing E. Coli & MRSA from tracheal aspirate; continue and de-escalate AB's per ID recommendations - prognosis grave to guarded especially neurologic-rai - continue care as below otherwise; - wean Vasopressors for target MAP > 65 mmHg - continue Librium - repeat COVID-19 test is positive - continue systemic steroids - continue to wean supplemental oxygen for target O2 sat's > 92% - continue low dose SSI - continue Seroquel 300 mg p.o. bid - continue airborne and contact isolation - continue Zinc & Vit C supplementaion - complete Remdesivir - de-escalate AB's per ID rec's - continue systemic steroids for Asthma / severe COVID infection - continue Daily SAT and SBT assessment as tolerated - VAP bundle addressed - continue lung protective strategies - continue bronchodilators with pulmonary hygiene per RT - wean per pulmonary driven protocols otherwise - accuchecks with glycemic control per SSI (While critically ill target blood glucose of 140-180 mg/dL; avoid hypoglycemia) - sedation prn for target RASS -1 to -2 - avoid nephrotoxins, renally dose all medications - continue to avoid benzodiazepine's, reduce the possibility of delirium - prn analgesia per CPOT score - Maintenance of sleep-wake cycle, avoid delirium - continue enteral nutritional support at goal rate as tolerated - G.I. & VTE prophylaxis - PT/OT/ROM exercises - continue mobility protocols for pressure ulcer prophylaxis - Monitor hemodynamics closely - continue other care per attending / other consultants - discharge planning ongoing concurrently .... Re-evaluate in am & prn CONDITION: CRITICAL PROGNOSIS: GUARDED CODE STATUS: FULL CODE The high probability of a clinically significant, sudden or life-threatening deterioration of the [respiratory, cardiovascular & neurologic] system(s) required my full and direct attention, intervention and personal management. The aggregate critical care time was [32] minutes without overlap. Time includes spent on; [x] Data Review and interpretation [x] Patient assessment and monitoring of vital signs [x] Documentation [x] Medication orders and management Subjective Date of service: 08/06/20 Principal diagnosis: Ac hypoxemic resp failure; PNA; COVID-19 infxn; SLE; Asthma exacerbation Interval history: Patient is seen today for: Acute hypoxemic respiratory failure; Bilateral pneumonia; COVID-19 infection; H/O CHF; SLE; Acute asthma exacerbation. HTN; Obesity Seen and examined at bedside; 24hour events reviewed; nursing and respiratory care staff consulted; no adverse overnight events reported to me; resting peacefully in bed; remains on MVS; Objective Vital Signs - 12hr 08/06/20 08/06/20 08/06/20 01:00 01:16 01:30 Temperature Pulse Rate 99 H 97 H 95 H Pulse Rate [ Bilateral Throughout] Pulse Rate [ From Monitor] Respiratory 30 H 30 H 30 H Rate Respiratory Rate [Bilateral Throughout] Blood Pressure 102/61 103/58 99/60 O2 Sat by Pulse 100 100 100 Oximetry 08/06/20 08/06/20 08/06/20 01:46 02:00 02:16 Temperature Pulse Rate 96 H 96 H 92 H Pulse Rate [ Bilateral Throughout] Pulse Rate [ From Monitor] Respiratory 30 H 30 H 30 H Rate Respiratory Rate [Bilateral Throughout] Blood Pressure 99/60 99/64 98/58 O2 Sat by Pulse 100 100 100 Oximetry 08/06/20 08/06/20 08/06/20 02:30 02:46 03:00 Temperature Pulse Rate 96 H 103 H 102 H Pulse Rate [ Bilateral Throughout] Pulse Rate [ From Monitor] Respiratory 30 H 30 H 30 H Rate Respiratory Rate [Bilateral Throughout] Blood Pressure 102/66 102/57 103/57 O2 Sat by Pulse 100 100 100 Oximetry 08/06/20 08/06/20 08/06/20 03:12 03:16 03:30 Temperature 100.2 F H Pulse Rate 100 H 97 H Pulse Rate [ Bilateral Throughout] Pulse Rate [ From Monitor] Respiratory 30 H 27 H Rate Respiratory Rate [Bilateral Throughout] Blood Pressure 97/57 102/63 O2 Sat by Pulse 100 100 Oximetry 08/06/20 08/06/20 08/06/20 03:46 04:00 04:16 Temperature Pulse Rate 93 H 91 H 87 Pulse Rate [ Bilateral Throughout] Pulse Rate [ 87 From Monitor] Respiratory 30 H 30 H 30 H Rate Respiratory Rate [Bilateral Throughout] Blood Pressure 104/62 108/63 100/64 O2 Sat by Pulse 100 100 100 Oximetry 08/06/20 08/06/20 08/06/20 04:22 04:30 04:46 Temperature Pulse Rate 88 88 86 Pulse Rate [ Bilateral Throughout] Pulse Rate [ From Monitor] Respiratory 30 H 24 Rate Respiratory Rate [Bilateral Throughout] Blood Pressure 100/64 109/65 110/67 O2 Sat by Pulse 100 100 100 Oximetry 08/06/20 08/06/20 08/06/20 05:00 05:16 05:30 Temperature Pulse Rate 82 93 H 96 H Pulse Rate [ Bilateral Throughout] Pulse Rate [ From Monitor] Respiratory 30 H 19 15 Rate Respiratory Rate [Bilateral Throughout] Blood Pressure 123/69 123/69 130/61 O2 Sat by Pulse 100 100 Oximetry 08/06/20 08/06/20 08/06/20 05:45 06:00 06:16 Temperature Pulse Rate 93 H 87 86 Pulse Rate [ Bilateral Throughout] Pulse Rate [ From Monitor] Respiratory 12 21 30 H Rate Respiratory Rate [Bilateral Throughout] Blood Pressure 106/56 115/61 119/67 O2 Sat by Pulse 100 100 100 Oximetry 08/06/20 08/06/20 08/06/20 06:30 07:29 08:05 Temperature Pulse Rate 81 80 Pulse Rate [ 82 Bilateral Throughout] Pulse Rate [ From Monitor] Respiratory 30 H Rate Respiratory 31 H Rate [Bilateral Throughout] Blood Pressure 131/71 129/67 O2 Sat by Pulse 100 99 Oximetry 08/06/20 12:10 Temperature Pulse Rate 94 H Pulse Rate [ Bilateral Throughout] Pulse Rate [ From Monitor] Respiratory Rate Respiratory Rate [Bilateral Throughout] Blood Pressure 173/82 O2 Sat by Pulse 95 Oximetry Constitutional: no acute distress, other (middle aged obese female with mildly increased respiratory effort at rest on MVS) Eyes: non-icteric ENT: oropharynx moist, other (ETT 23cm YANET) Neck: supple, no lymphadenopathy, no JVD Effort: mildly labored Ascultation: Bilateral: diminished breath sounds, rhonchi, other (two R. chest tubes and 1 on left (leaks on right side)) Percussion: Bilateral: not dull Cardiovascular: regular rate and rhythm, other (S1,S2) Gastrointestinal: normoactive bowel sounds, soft, non-tender, non-distended Integumentary: normal Extremities: no cyanosis, no edema, pulses normal, no ischemia or petechiae Neurologic: pupils equal and round, other (sedated) Psychiatric: other (unable to assess re: AMS / sedation) CBC and BMP: 08/06/20 04:00 08/06/20 04:00 ABG, PT/INR, D-dimer: ABG ABG pH 7.336 (7.320-7.450) 08/06/20 Unknown POC ABG pCO2 50.5 mmHg (32.0-48.0) H 08/06/20 Unknown ABG pCO2 81.7 mm Hg 07/28/20 04:15 POC ABG pO2 70.5 mmHg (83-108) L 08/06/20 Unknown ABG pO2 130.3 mm Hg (80.0-90.0) H 07/28/20 04:15 POC ABG HCO3 26.4 08/06/20 Unknown ABG O2 Saturation 98.1 % (95.0-99.0) 07/28/20 04:15 PT/INR, D-dimer PT 15.4 Sec. (12.2-14.9) H 08/05/20 13:35 INR 1.22 (0.87-1.13) H 08/05/20 13:35 D-Dimer 4748.32 ng/mlDDU (0-234) H 08/05/20 13:35 Abnormal lab findings: Abnormal Labs 07/06/20 07/06/20 07/07/20 05:24 17:16 04:50 WBC 13.5 H 12.7 H RBC Hgb Hct MCH MCHC RDW Plt Count Lymph % (Auto) Lymph # (Auto) Seg Neutrophils % Seg Neuts % (Manual) 86.0 H 87.0 H Lymphocytes % (Manual) 6.0 L 9.0 L Eosinophils % (Manual) Nucleated RBC % Seg Neutrophils # Seg Neutrophils # Man 11.6 H 11.0 H Lymphocytes # (Manual) 0.8 L 1.1 L Eosinophils # (Manual) PT INR D-Dimer ABG pH POC ABG pCO2 POC ABG pO2 ABG pO2 ABG HCO3 ABG O2 Saturation ABG Base Excess ABG Hemoglobin ABG Oxyhemoglobin ABG Sodium ABG Potassium ABG Chloride ABG Glucose Oxyhemoglobin Carboxyhemoglobin Sodium Potassium Chloride Carbon Dioxide BUN Creatinine Glucose POC Glucose Lactic Acid Calcium Ferritin AST ALT Lactate Dehydrogenase 242 H C-Reactive Protein 7.30 H Total Protein Albumin Triglycerides Arterial Blood Glucose Arterial Blood Ionized Calcium Urine Creatinine Urine Total Protein Vancomycin Trough Coronavirus (PCR) SARS-CoV-2 IgG Ab 07/07/20 07/07/20 07/07/20 04:50 14:22 14:22 WBC RBC Hgb Hct MCH MCHC RDW Plt Count Lymph % (Auto) Lymph # (Auto) Seg Neutrophils % Seg Neuts % (Manual) Lymphocytes % (Manual) Eosinophils % (Manual) Nucleated RBC % Seg Neutrophils # Seg Neutrophils # Man Lymphocytes # (Manual) Eosinophils # (Manual) PT INR D-Dimer ABG pH POC ABG pCO2 POC ABG pO2 ABG pO2 ABG HCO3 ABG O2 Saturation ABG Base Excess ABG Hemoglobin ABG Oxyhemoglobin ABG Sodium ABG Potassium ABG Chloride ABG Glucose Oxyhemoglobin Carboxyhemoglobin Sodium Potassium Chloride Carbon Dioxide BUN 18 H Creatinine Glucose 138 H POC Glucose Lactic Acid Calcium Ferritin 228.2 H AST ALT Lactate Dehydrogenase 277 H C-Reactive Protein Total Protein 5.9 L Albumin 3.4 L Triglycerides Arterial Blood Glucose Arterial Blood Ionized Calcium Urine Creatinine Urine Total Protein Vancomycin Trough Coronavirus (PCR) SARS-CoV-2 IgG Ab 07/08/20 07/08/20 07/08/20 11:18 12:57 16:13 WBC RBC Hgb Hct MCH MCHC RDW Plt Count Lymph % (Auto) Lymph # (Auto) Seg Neutrophils % Seg Neuts % (Manual) Lymphocytes % (Manual) Eosinophils % (Manual) Nucleated RBC % Seg Neutrophils # Seg Neutrophils # Man Lymphocytes # (Manual) Eosinophils # (Manual) PT INR D-Dimer ABG pH POC ABG pCO2 POC ABG pO2 ABG pO2 39.3 L* ABG HCO3 ABG O2 Saturation 76.8 L ABG Base Excess ABG Hemoglobin ABG Oxyhemoglobin ABG Sodium ABG Potassium ABG Chloride ABG Glucose Oxyhemoglobin 75.3 L Carboxyhemoglobin Sodium Potassium Chloride Carbon Dioxide 20 L D BUN Creatinine Glucose 135 H POC Glucose 106 H Lactic Acid Calcium 8.0 L Ferritin AST ALT Lactate Dehydrogenase C-Reactive Protein Total Protein Albumin Triglycerides Arterial Blood Glucose Arterial Blood Ionized Calcium Urine Creatinine Urine Total Protein Vancomycin Trough Coronavirus (PCR) SARS-CoV-2 IgG Ab 07/08/20 07/08/20 07/09/20 17:04 18:45 04:00 WBC 15.6 H RBC Hgb Hct MCH MCHC RDW Plt Count Lymph % (Auto) 4.7 L Lymph # (Auto) 0.7 L Seg Neutrophils % Seg Neuts % (Manual) Lymphocytes % (Manual) Eosinophils % (Manual) Nucleated RBC % Seg Neutrophils # 14.2 H Seg Neutrophils # Man Lymphocytes # (Manual) Eosinophils # (Manual) PT INR D-Dimer ABG pH POC ABG pCO2 POC ABG pO2 ABG pO2 181.8 H ABG HCO3 ABG O2 Saturation 99.1 H ABG Base Excess ABG Hemoglobin 11.4 L ABG Oxyhemoglobin ABG Sodium ABG Potassium ABG Chloride ABG Glucose Oxyhemoglobin Carboxyhemoglobin Sodium Potassium Chloride Carbon Dioxide BUN Creatinine Glucose POC Glucose 117 H Lactic Acid Calcium Ferritin AST ALT Lactate Dehydrogenase C-Reactive Protein Total Protein Albumin Triglycerides Arterial Blood Glucose Arterial Blood Ionized Calcium Urine Creatinine Urine Total Protein Vancomycin Trough Coronavirus (PCR) SARS-CoV-2 IgG Ab 07/09/20 07/09/20 07/09/20 04:00 04:00 04:49 WBC RBC Hgb Hct MCH MCHC RDW Plt Count Lymph % (Auto) Lymph # (Auto) Seg Neutrophils % Seg Neuts % (Manual) Lymphocytes % (Manual) Eosinophils % (Manual) Nucleated RBC % Seg Neutrophils # Seg Neutrophils # Man Lymphocytes # (Manual) Eosinophils # (Manual) PT INR D-Dimer ABG pH POC ABG pCO2 POC ABG pO2 ABG pO2 ABG HCO3 26.2 H ABG O2 Saturation ABG Base Excess ABG Hemoglobin 11.2 L ABG Oxyhemoglobin ABG Sodium ABG Potassium ABG Chloride ABG Glucose Oxyhemoglobin 94.9 L Carboxyhemoglobin Sodium Potassium Chloride Carbon Dioxide BUN Creatinine Glucose 158 H POC Glucose Lactic Acid Calcium 8.2 L Ferritin 320.0 H AST ALT Lactate Dehydrogenase 391 H C-Reactive Protein 9.50 H Total Protein 5.9 L Albumin 3.2 L Triglycerides Arterial Blood Glucose Arterial Blood Ionized Calcium Urine Creatinine Urine Total Protein Vancomycin Trough Coronavirus (PCR) SARS-CoV-2 IgG Ab 07/09/20 07/09/20 07/09/20 11:56 17:49 23:39 WBC RBC Hgb Hct MCH MCHC RDW Plt Count Lymph % (Auto) Lymph # (Auto) Seg Neutrophils % Seg Neuts % (Manual) Lymphocytes % (Manual) Eosinophils % (Manual) Nucleated RBC % Seg Neutrophils # Seg Neutrophils # Man Lymphocytes # (Manual) Eosinophils # (Manual) PT INR D-Dimer ABG pH POC ABG pCO2 POC ABG pO2 ABG pO2 ABG HCO3 ABG O2 Saturation ABG Base Excess ABG Hemoglobin ABG Oxyhemoglobin ABG Sodium ABG Potassium ABG Chloride ABG Glucose Oxyhemoglobin Carboxyhemoglobin Sodium Potassium Chloride Carbon Dioxide BUN Creatinine Glucose POC Glucose 156 H 119 H 145 H Lactic Acid Calcium Ferritin AST ALT Lactate Dehydrogenase C-Reactive Protein Total Protein Albumin Triglycerides Arterial Blood Glucose Arterial Blood Ionized Calcium Urine Creatinine Urine Total Protein Vancomycin Trough Coronavirus (PCR) SARS-CoV-2 IgG Ab 07/10/20 07/10/20 07/10/20 03:32 05:26 11:22 WBC RBC Hgb Hct MCH MCHC RDW Plt Count Lymph % (Auto) Lymph # (Auto) Seg Neutrophils % Seg Neuts % (Manual) Lymphocytes % (Manual) Eosinophils % (Manual) Nucleated RBC % Seg Neutrophils # Seg Neutrophils # Man Lymphocytes # (Manual) Eosinophils # (Manual) PT INR D-Dimer ABG pH POC ABG pCO2 POC ABG pO2 ABG pO2 75.7 L ABG HCO3 27.5 H ABG O2 Saturation ABG Base Excess ABG Hemoglobin 9.3 L ABG Oxyhemoglobin ABG Sodium ABG Potassium ABG Chloride ABG Glucose Oxyhemoglobin 94.7 L Carboxyhemoglobin Sodium Potassium Chloride Carbon Dioxide BUN Creatinine Glucose POC Glucose 156 H 148 H Lactic Acid Calcium Ferritin AST ALT Lactate Dehydrogenase C-Reactive Protein Total Protein Albumin Triglycerides Arterial Blood Glucose Arterial Blood Ionized Calcium Urine Creatinine Urine Total Protein Vancomycin Trough Coronavirus (PCR) SARS-CoV-2 IgG Ab 07/10/20 07/10/20 07/10/20 12:10 12:10 18:20 WBC 14.1 H RBC 3.33 L Hgb 9.9 L Hct MCH MCHC RDW Plt Count Lymph % (Auto) Lymph # (Auto) Seg Neutrophils % Seg Neuts % (Manual) 89.0 H Lymphocytes % (Manual) 8.0 L Eosinophils % (Manual) Nucleated RBC % Seg Neutrophils # Seg Neutrophils # Man 12.5 H Lymphocytes # (Manual) 1.1 L Eosinophils # (Manual) PT INR D-Dimer ABG pH POC ABG pCO2 POC ABG pO2 ABG pO2 ABG HCO3 ABG O2 Saturation ABG Base Excess ABG Hemoglobin ABG Oxyhemoglobin ABG Sodium ABG Potassium ABG Chloride ABG Glucose Oxyhemoglobin Carboxyhemoglobin Sodium Potassium Chloride Carbon Dioxide BUN 21 H Creatinine Glucose 154 H POC Glucose 181 H Lactic Acid Calcium 8.0 L Ferritin AST ALT Lactate Dehydrogenase C-Reactive Protein Total Protein 5.4 L Albumin 3.0 L Triglycerides Arterial Blood Glucose Arterial Blood Ionized Calcium Urine Creatinine Urine Total Protein Vancomycin Trough Coronavirus (PCR) SARS-CoV-2 IgG Ab 07/10/20 07/11/20 07/11/20 23:51 04:05 05:43 WBC RBC Hgb Hct MCH MCHC RDW Plt Count Lymph % (Auto) Lymph # (Auto) Seg Neutrophils % Seg Neuts % (Manual) Lymphocytes % (Manual) Eosinophils % (Manual) Nucleated RBC % Seg Neutrophils # Seg Neutrophils # Man Lymphocytes # (Manual) Eosinophils # (Manual) PT INR D-Dimer ABG pH 7.348 L POC ABG pCO2 POC ABG pO2 ABG pO2 93.6 H ABG HCO3 28.5 H ABG O2 Saturation ABG Base Excess ABG Hemoglobin 10.1 L ABG Oxyhemoglobin ABG Sodium ABG Potassium ABG Chloride ABG Glucose Oxyhemoglobin Carboxyhemoglobin Sodium Potassium Chloride Carbon Dioxide BUN Creatinine Glucose POC Glucose 116 H 132 H Lactic Acid Calcium Ferritin AST ALT Lactate Dehydrogenase C-Reactive Protein Total Protein Albumin Triglycerides Arterial Blood Glucose Arterial Blood Ionized Calcium Urine Creatinine Urine Total Protein Vancomycin Trough Coronavirus (PCR) SARS-CoV-2 IgG Ab 07/11/20 07/11/20 07/11/20 09:11 09:11 09:11 WBC 15.8 H RBC 3.44 L Hgb Hct MCH MCHC RDW Plt Count Lymph % (Auto) Lymph # (Auto) Seg Neutrophils % Seg Neuts % (Manual) 92.0 H Lymphocytes % (Manual) 4.0 L Eosinophils % (Manual) Nucleated RBC % Seg Neutrophils # Seg Neutrophils # Man 14.5 H Lymphocytes # (Manual) 0.6 L Eosinophils # (Manual) PT INR D-Dimer 360.61 H ABG pH POC ABG pCO2 POC ABG pO2 ABG pO2 ABG HCO3 ABG O2 Saturation ABG Base Excess ABG Hemoglobin ABG Oxyhemoglobin ABG Sodium ABG Potassium ABG Chloride ABG Glucose Oxyhemoglobin Carboxyhemoglobin Sodium Potassium Chloride 107.1 H Carbon Dioxide BUN 22 H Creatinine Glucose 149 H POC Glucose Lactic Acid Calcium 7.8 L Ferritin AST ALT Lactate Dehydrogenase 483 H C-Reactive Protein 2.30 H Total Protein 4.9 L Albumin 3.0 L Triglycerides Arterial Blood Glucose Arterial Blood Ionized Calcium Urine Creatinine Urine Total Protein Vancomycin Trough Coronavirus (PCR) SARS-CoV-2 IgG Ab 07/11/20 07/11/20 07/11/20 09:11 12:16 17:55 WBC RBC Hgb Hct MCH MCHC RDW Plt Count Lymph % (Auto) Lymph # (Auto) Seg Neutrophils % Seg Neuts % (Manual) Lymphocytes % (Manual) Eosinophils % (Manual) Nucleated RBC % Seg Neutrophils # Seg Neutrophils # Man Lymphocytes # (Manual) Eosinophils # (Manual) PT INR D-Dimer ABG pH POC ABG pCO2 POC ABG pO2 ABG pO2 ABG HCO3 ABG O2 Saturation ABG Base Excess ABG Hemoglobin ABG Oxyhemoglobin ABG Sodium ABG Potassium ABG Chloride ABG Glucose Oxyhemoglobin Carboxyhemoglobin Sodium Potassium Chloride Carbon Dioxide BUN Creatinine Glucose POC Glucose 157 H 166 H Lactic Acid Calcium Ferritin 371.2 H AST ALT Lactate Dehydrogenase C-Reactive Protein Total Protein Albumin Triglycerides Arterial Blood Glucose Arterial Blood Ionized Calcium Urine Creatinine Urine Total Protein Vancomycin Trough Coronavirus (PCR) SARS-CoV-2 IgG Ab 07/12/20 07/12/20 07/12/20 00:32 04:00 04:00 WBC RBC 3.52 L Hgb Hct MCH MCHC RDW Plt Count Lymph % (Auto) Lymph # (Auto) Seg Neutrophils % Seg Neuts % (Manual) 90.0 H Lymphocytes % (Manual) 4.0 L Eosinophils % (Manual) Nucleated RBC % Seg Neutrophils # Seg Neutrophils # Man 9.5 H Lymphocytes # (Manual) 0.4 L Eosinophils # (Manual) PT INR D-Dimer ABG pH POC ABG pCO2 POC ABG pO2 ABG pO2 ABG HCO3 ABG O2 Saturation ABG Base Excess ABG Hemoglobin ABG Oxyhemoglobin ABG Sodium ABG Potassium ABG Chloride ABG Glucose Oxyhemoglobin Carboxyhemoglobin Sodium Potassium Chloride Carbon Dioxide 31 H BUN 21 H Creatinine Glucose 175 H POC Glucose 178 H Lactic Acid Calcium 8.0 L Ferritin AST ALT Lactate Dehydrogenase C-Reactive Protein Total Protein 5.4 L Albumin 3.0 L Triglycerides Arterial Blood Glucose Arterial Blood Ionized Calcium Urine Creatinine Urine Total Protein Vancomycin Trough Coronavirus (PCR) SARS-CoV-2 IgG Ab 07/12/20 07/12/20 07/12/20 04:01 05:47 12:09 WBC RBC Hgb Hct MCH MCHC RDW Plt Count Lymph % (Auto) Lymph # (Auto) Seg Neutrophils % Seg Neuts % (Manual) Lymphocytes % (Manual) Eosinophils % (Manual) Nucleated RBC % Seg Neutrophils # Seg Neutrophils # Man Lymphocytes # (Manual) Eosinophils # (Manual) PT INR D-Dimer ABG pH 7.465 H POC ABG pCO2 POC ABG pO2 ABG pO2 ABG HCO3 ABG O2 Saturation ABG Base Excess ABG Hemoglobin 10.6 L ABG Oxyhemoglobin ABG Sodium ABG Potassium ABG Chloride ABG Glucose 177 H Oxyhemoglobin Carboxyhemoglobin Sodium Potassium Chloride Carbon Dioxide BUN Creatinine Glucose POC Glucose 185 H 227 H Lactic Acid Calcium Ferritin AST ALT Lactate Dehydrogenase C-Reactive Protein Total Protein Albumin Triglycerides Arterial Blood Glucose 177 H Arterial Blood Ionized Calcium 4.5 L Urine Creatinine Urine Total Protein Vancomycin Trough Coronavirus (PCR) SARS-CoV-2 IgG Ab 07/12/20 07/12/20 07/13/20 17:34 23:57 05:06 WBC RBC Hgb Hct MCH MCHC RDW Plt Count Lymph % (Auto) Lymph # (Auto) Seg Neutrophils % Seg Neuts % (Manual) Lymphocytes % (Manual) Eosinophils % (Manual) Nucleated RBC % Seg Neutrophils # Seg Neutrophils # Man Lymphocytes # (Manual) Eosinophils # (Manual) PT INR D-Dimer ABG pH POC ABG pCO2 POC ABG pO2 ABG pO2 ABG HCO3 ABG O2 Saturation ABG Base Excess ABG Hemoglobin ABG Oxyhemoglobin ABG Sodium ABG Potassium ABG Chloride ABG Glucose Oxyhemoglobin Carboxyhemoglobin Sodium Potassium Chloride Carbon Dioxide BUN Creatinine Glucose POC Glucose 202 H 163 H 166 H Lactic Acid Calcium Ferritin AST ALT Lactate Dehydrogenase C-Reactive Protein Total Protein Albumin Triglycerides Arterial Blood Glucose Arterial Blood Ionized Calcium Urine Creatinine Urine Total Protein Vancomycin Trough Coronavirus (PCR) SARS-CoV-2 IgG Ab 07/13/20 07/13/20 07/13/20 07:20 07:20 07:20 WBC 20.5 H RBC Hgb Hct MCH MCHC RDW Plt Count Lymph % (Auto) Lymph # (Auto) Seg Neutrophils % Seg Neuts % (Manual) 93.0 H Lymphocytes % (Manual) 3.0 L Eosinophils % (Manual) Nucleated RBC % Seg Neutrophils # Seg Neutrophils # Man 19.1 H Lymphocytes # (Manual) 0.6 L Eosinophils # (Manual) PT INR D-Dimer 826.36 H ABG pH POC ABG pCO2 POC ABG pO2 ABG pO2 ABG HCO3 ABG O2 Saturation ABG Base Excess ABG Hemoglobin ABG Oxyhemoglobin ABG Sodium ABG Potassium ABG Chloride ABG Glucose Oxyhemoglobin Carboxyhemoglobin Sodium Potassium Chloride Carbon Dioxide 31 H BUN 25 H Creatinine Glucose 163 H POC Glucose Lactic Acid Calcium 8.1 L Ferritin AST ALT Lactate Dehydrogenase 512 H C-Reactive Protein 1.80 H Total Protein 5.8 L Albumin 3.2 L Triglycerides Arterial Blood Glucose Arterial Blood Ionized Calcium Urine Creatinine Urine Total Protein Vancomycin Trough Coronavirus (PCR) SARS-CoV-2 IgG Ab 07/13/20 07/13/20 07/13/20 07:20 11:37 17:20 WBC RBC Hgb Hct MCH MCHC RDW Plt Count Lymph % (Auto) Lymph # (Auto) Seg Neutrophils % Seg Neuts % (Manual) Lymphocytes % (Manual) Eosinophils % (Manual) Nucleated RBC % Seg Neutrophils # Seg Neutrophils # Man Lymphocytes # (Manual) Eosinophils # (Manual) PT INR D-Dimer ABG pH POC ABG pCO2 POC ABG pO2 ABG pO2 ABG HCO3 ABG O2 Saturation ABG Base Excess ABG Hemoglobin ABG Oxyhemoglobin ABG Sodium ABG Potassium ABG Chloride ABG Glucose Oxyhemoglobin Carboxyhemoglobin Sodium Potassium Chloride Carbon Dioxide BUN Creatinine Glucose POC Glucose 232 H 210 H Lactic Acid Calcium Ferritin 219.8 H AST ALT Lactate Dehydrogenase C-Reactive Protein Total Protein Albumin Triglycerides Arterial Blood Glucose Arterial Blood Ionized Calcium Urine Creatinine Urine Total Protein Vancomycin Trough Coronavirus (PCR) SARS-CoV-2 IgG Ab 07/13/20 07/13/20 07/14/20 23:57 Unknown 05:22 WBC RBC Hgb Hct MCH MCHC RDW Plt Count Lymph % (Auto) Lymph # (Auto) Seg Neutrophils % Seg Neuts % (Manual) Lymphocytes % (Manual) Eosinophils % (Manual) Nucleated RBC % Seg Neutrophils # Seg Neutrophils # Man Lymphocytes # (Manual) Eosinophils # (Manual) PT INR D-Dimer ABG pH 7.341 L POC ABG pCO2 POC ABG pO2 133.0 H ABG pO2 56.5 L ABG HCO3 29.7 H ABG O2 Saturation 89.3 L ABG Base Excess ABG Hemoglobin 11.0 L ABG Oxyhemoglobin ABG Sodium ABG Potassium ABG Chloride ABG Glucose 207 H Oxyhemoglobin 87.7 L Carboxyhemoglobin Sodium Potassium Chloride Carbon Dioxide BUN Creatinine Glucose POC Glucose 190 H Lactic Acid Calcium Ferritin AST ALT Lactate Dehydrogenase C-Reactive Protein Total Protein Albumin Triglycerides Arterial Blood Glucose 207 H Arterial Blood Ionized Calcium 4.5 L Urine Creatinine Urine Total Protein Vancomycin Trough Coronavirus (PCR) SARS-CoV-2 IgG Ab 07/14/20 07/14/20 07/14/20 05:54 11:16 17:50 WBC RBC Hgb Hct MCH MCHC RDW Plt Count Lymph % (Auto) Lymph # (Auto) Seg Neutrophils % Seg Neuts % (Manual) Lymphocytes % (Manual) Eosinophils % (Manual) Nucleated RBC % Seg Neutrophils # Seg Neutrophils # Man Lymphocytes # (Manual) Eosinophils # (Manual) PT INR D-Dimer ABG pH POC ABG pCO2 POC ABG pO2 ABG pO2 ABG HCO3 ABG O2 Saturation ABG Base Excess ABG Hemoglobin ABG Oxyhemoglobin ABG Sodium ABG Potassium ABG Chloride ABG Glucose Oxyhemoglobin Carboxyhemoglobin Sodium Potassium Chloride Carbon Dioxide BUN Creatinine Glucose POC Glucose 206 H 196 H 205 H Lactic Acid Calcium Ferritin AST ALT Lactate Dehydrogenase C-Reactive Protein Total Protein Albumin Triglycerides Arterial Blood Glucose Arterial Blood Ionized Calcium Urine Creatinine Urine Total Protein Vancomycin Trough Coronavirus (PCR) SARS-CoV-2 IgG Ab 07/14/20 07/15/20 07/15/20 23:28 03:16 06:12 WBC RBC Hgb Hct MCH MCHC RDW Plt Count Lymph % (Auto) Lymph # (Auto) Seg Neutrophils % Seg Neuts % (Manual) Lymphocytes % (Manual) Eosinophils % (Manual) Nucleated RBC % Seg Neutrophils # Seg Neutrophils # Man Lymphocytes # (Manual) Eosinophils # (Manual) PT INR D-Dimer ABG pH POC ABG pCO2 49.2 H POC ABG pO2 120.3 H ABG pO2 ABG HCO3 ABG O2 Saturation ABG Base Excess ABG Hemoglobin 9.5 L ABG Oxyhemoglobin ABG Sodium ABG Potassium ABG Chloride ABG Glucose 148 H Oxyhemoglobin Carboxyhemoglobin Sodium Potassium Chloride Carbon Dioxide BUN Creatinine Glucose POC Glucose 160 H 178 H Lactic Acid Calcium Ferritin AST ALT Lactate Dehydrogenase C-Reactive Protein Total Protein Albumin Triglycerides Arterial Blood Glucose 148 H Arterial Blood Ionized Calcium Urine Creatinine Urine Total Protein Vancomycin Trough Coronavirus (PCR) SARS-CoV-2 IgG Ab 07/15/20 07/15/20 07/15/20 09:00 12:32 14:30 WBC RBC Hgb Hct MCH MCHC RDW Plt Count Lymph % (Auto) Lymph # (Auto) Seg Neutrophils % Seg Neuts % (Manual) Lymphocytes % (Manual) Eosinophils % (Manual) Nucleated RBC % Seg Neutrophils # Seg Neutrophils # Man Lymphocytes # (Manual) Eosinophils # (Manual) PT INR D-Dimer ABG pH POC ABG pCO2 POC ABG pO2 ABG pO2 ABG HCO3 ABG O2 Saturation ABG Base Excess ABG Hemoglobin ABG Oxyhemoglobin ABG Sodium ABG Potassium ABG Chloride ABG Glucose Oxyhemoglobin Carboxyhemoglobin Sodium Potassium Chloride Carbon Dioxide BUN Creatinine Glucose POC Glucose 173 H Lactic Acid Calcium Ferritin AST ALT Lactate Dehydrogenase 531 H C-Reactive Protein Total Protein Albumin Triglycerides Arterial Blood Glucose Arterial Blood Ionized Calcium Urine Creatinine Urine Total Protein Vancomycin Trough Coronavirus (PCR) SARS-CoV-2 IgG Ab Reactive A 07/15/20 07/15/20 07/16/20 18:24 23:35 04:03 WBC RBC Hgb Hct MCH MCHC RDW Plt Count Lymph % (Auto) Lymph # (Auto) Seg Neutrophils % Seg Neuts % (Manual) Lymphocytes % (Manual) Eosinophils % (Manual) Nucleated RBC % Seg Neutrophils # Seg Neutrophils # Man Lymphocytes # (Manual) Eosinophils # (Manual) PT INR D-Dimer ABG pH POC ABG pCO2 POC ABG pO2 ABG pO2 72.7 L ABG HCO3 35.5 H ABG O2 Saturation ABG Base Excess 9.4 H ABG Hemoglobin 10.6 L ABG Oxyhemoglobin ABG Sodium ABG Potassium ABG Chloride ABG Glucose Oxyhemoglobin 93.6 L Carboxyhemoglobin Sodium Potassium Chloride Carbon Dioxide BUN Creatinine Glucose POC Glucose 173 H 181 H Lactic Acid Calcium Ferritin AST ALT Lactate Dehydrogenase C-Reactive Protein Total Protein Albumin Triglycerides Arterial Blood Glucose Arterial Blood Ionized Calcium Urine Creatinine Urine Total Protein Vancomycin Trough Coronavirus (PCR) SARS-CoV-2 IgG Ab 07/16/20 07/16/20 07/16/20 05:35 09:00 09:00 WBC 16.5 H RBC 3.59 L Hgb Hct MCH MCHC RDW Plt Count Lymph % (Auto) Lymph # (Auto) Seg Neutrophils % Seg Neuts % (Manual) 96.0 H Lymphocytes % (Manual) 3.0 L Eosinophils % (Manual) Nucleated RBC % Seg Neutrophils # Seg Neutrophils # Man 15.8 H Lymphocytes # (Manual) 0.5 L Eosinophils # (Manual) PT INR D-Dimer ABG pH POC ABG pCO2 POC ABG pO2 ABG pO2 ABG HCO3 ABG O2 Saturation ABG Base Excess ABG Hemoglobin ABG Oxyhemoglobin ABG Sodium ABG Potassium ABG Chloride ABG Glucose Oxyhemoglobin Carboxyhemoglobin Sodium Potassium Chloride Carbon Dioxide 39 H D BUN 25 H Creatinine 0.4 L Glucose 167 H POC Glucose 129 H Lactic Acid Calcium 8.3 L Ferritin AST ALT Lactate Dehydrogenase C-Reactive Protein Total Protein Albumin Triglycerides Arterial Blood Glucose Arterial Blood Ionized Calcium Urine Creatinine Urine Total Protein Vancomycin Trough Coronavirus (PCR) SARS-CoV-2 IgG Ab 07/16/20 07/16/20 07/17/20 12:32 18:28 00:09 WBC RBC Hgb Hct MCH MCHC RDW Plt Count Lymph % (Auto) Lymph # (Auto) Seg Neutrophils % Seg Neuts % (Manual) Lymphocytes % (Manual) Eosinophils % (Manual) Nucleated RBC % Seg Neutrophils # Seg Neutrophils # Man Lymphocytes # (Manual) Eosinophils # (Manual) PT INR D-Dimer ABG pH POC ABG pCO2 POC ABG pO2 ABG pO2 ABG HCO3 ABG O2 Saturation ABG Base Excess ABG Hemoglobin ABG Oxyhemoglobin ABG Sodium ABG Potassium ABG Chloride ABG Glucose Oxyhemoglobin Carboxyhemoglobin Sodium Potassium Chloride Carbon Dioxide BUN Creatinine Glucose POC Glucose 187 H 174 H 184 H Lactic Acid Calcium Ferritin AST ALT Lactate Dehydrogenase C-Reactive Protein Total Protein Albumin Triglycerides Arterial Blood Glucose Arterial Blood Ionized Calcium Urine Creatinine Urine Total Protein Vancomycin Trough Coronavirus (PCR) SARS-CoV-2 IgG Ab 07/17/20 07/17/20 07/17/20 04:30 05:47 13:03 WBC RBC Hgb Hct MCH MCHC RDW Plt Count Lymph % (Auto) Lymph # (Auto) Seg Neutrophils % Seg Neuts % (Manual) Lymphocytes % (Manual) Eosinophils % (Manual) Nucleated RBC % Seg Neutrophils # Seg Neutrophils # Man Lymphocytes # (Manual) Eosinophils # (Manual) PT INR D-Dimer ABG pH POC ABG pCO2 POC ABG pO2 ABG pO2 ABG HCO3 38.1 H ABG O2 Saturation ABG Base Excess 11.3 H ABG Hemoglobin 10.5 L ABG Oxyhemoglobin ABG Sodium ABG Potassium ABG Chloride ABG Glucose Oxyhemoglobin Carboxyhemoglobin Sodium Potassium Chloride Carbon Dioxide BUN Creatinine Glucose POC Glucose 135 H 210 H Lactic Acid Calcium Ferritin AST ALT Lactate Dehydrogenase C-Reactive Protein Total Protein Albumin Triglycerides Arterial Blood Glucose Arterial Blood Ionized Calcium Urine Creatinine Urine Total Protein Vancomycin Trough Coronavirus (PCR) SARS-CoV-2 IgG Ab 07/17/20 07/17/20 07/18/20 16:50 23:39 04:01 WBC RBC Hgb Hct MCH MCHC RDW Plt Count Lymph % (Auto) Lymph # (Auto) Seg Neutrophils % Seg Neuts % (Manual) Lymphocytes % (Manual) Eosinophils % (Manual) Nucleated RBC % Seg Neutrophils # Seg Neutrophils # Man Lymphocytes # (Manual) Eosinophils # (Manual) PT INR D-Dimer ABG pH POC ABG pCO2 56.8 H POC ABG pO2 61.9 L ABG pO2 ABG HCO3 ABG O2 Saturation ABG Base Excess ABG Hemoglobin 11.7 L ABG Oxyhemoglobin ABG Sodium 134.2 L ABG Potassium 4.7 H ABG Chloride 97.0 L ABG Glucose 173 H Oxyhemoglobin Carboxyhemoglobin Sodium Potassium Chloride Carbon Dioxide BUN Creatinine Glucose POC Glucose 193 H 163 H Lactic Acid Calcium Ferritin AST ALT Lactate Dehydrogenase C-Reactive Protein Total Protein Albumin Triglycerides Arterial Blood Glucose 173 H Arterial Blood Ionized Calcium Urine Creatinine Urine Total Protein Vancomycin Trough Coronavirus (PCR) SARS-CoV-2 IgG Ab 07/18/20 07/18/20 07/18/20 05:41 12:03 17:26 WBC RBC Hgb Hct MCH MCHC RDW Plt Count Lymph % (Auto) Lymph # (Auto) Seg Neutrophils % Seg Neuts % (Manual) Lymphocytes % (Manual) Eosinophils % (Manual) Nucleated RBC % Seg Neutrophils # Seg Neutrophils # Man Lymphocytes # (Manual) Eosinophils # (Manual) PT INR D-Dimer ABG pH POC ABG pCO2 POC ABG pO2 ABG pO2 ABG HCO3 ABG O2 Saturation ABG Base Excess ABG Hemoglobin ABG Oxyhemoglobin ABG Sodium ABG Potassium ABG Chloride ABG Glucose Oxyhemoglobin Carboxyhemoglobin Sodium Potassium Chloride Carbon Dioxide BUN Creatinine Glucose POC Glucose 153 H 177 H 160 H Lactic Acid Calcium Ferritin AST ALT Lactate Dehydrogenase C-Reactive Protein Total Protein Albumin Triglycerides Arterial Blood Glucose Arterial Blood Ionized Calcium Urine Creatinine Urine Total Protein Vancomycin Trough Coronavirus (PCR) SARS-CoV-2 IgG Ab 07/18/20 07/19/20 07/19/20 23:58 04:15 05:05 WBC RBC Hgb Hct MCH MCHC RDW Plt Count Lymph % (Auto) Lymph # (Auto) Seg Neutrophils % Seg Neuts % (Manual) Lymphocytes % (Manual) Eosinophils % (Manual) Nucleated RBC % Seg Neutrophils # Seg Neutrophils # Man Lymphocytes # (Manual) Eosinophils # (Manual) PT INR D-Dimer ABG pH 7.465 H POC ABG pCO2 49.1 H POC ABG pO2 49.4 L ABG pO2 ABG HCO3 ABG O2 Saturation ABG Base Excess ABG Hemoglobin 11.6 L ABG Oxyhemoglobin ABG Sodium 132.3 L ABG Potassium ABG Chloride 97.0 L ABG Glucose 148 H Oxyhemoglobin Carboxyhemoglobin Sodium Potassium Chloride Carbon Dioxide BUN Creatinine Glucose POC Glucose 144 H 117 H Lactic Acid Calcium Ferritin AST ALT Lactate Dehydrogenase C-Reactive Protein Total Protein Albumin Triglycerides Arterial Blood Glucose 148 H Arterial Blood Ionized Calcium Urine Creatinine Urine Total Protein Vancomycin Trough Coronavirus (PCR) SARS-CoV-2 IgG Ab 07/19/20 07/19/20 07/19/20 08:30 08:30 13:21 WBC 17.2 H RBC 3.59 L Hgb Hct MCH MCHC RDW Plt Count Lymph % (Auto) Lymph # (Auto) Seg Neutrophils % Seg Neuts % (Manual) Lymphocytes % (Manual) Eosinophils % (Manual) Nucleated RBC % Seg Neutrophils # Seg Neutrophils # Man Lymphocytes # (Manual) Eosinophils # (Manual) PT INR D-Dimer ABG pH POC ABG pCO2 POC ABG pO2 ABG pO2 ABG HCO3 ABG O2 Saturation ABG Base Excess ABG Hemoglobin ABG Oxyhemoglobin ABG Sodium ABG Potassium ABG Chloride ABG Glucose Oxyhemoglobin Carboxyhemoglobin Sodium Potassium Chloride 95.7 L Carbon Dioxide 37 H BUN 20 H Creatinine 0.4 L Glucose 125 H POC Glucose 137 H Lactic Acid Calcium 8.1 L Ferritin AST ALT Lactate Dehydrogenase C-Reactive Protein Total Protein Albumin Triglycerides Arterial Blood Glucose Arterial Blood Ionized Calcium Urine Creatinine Urine Total Protein Vancomycin Trough Coronavirus (PCR) SARS-CoV-2 IgG Ab 07/19/20 07/19/20 07/20/20 16:29 17:28 00:25 WBC RBC Hgb Hct MCH MCHC RDW Plt Count Lymph % (Auto) Lymph # (Auto) Seg Neutrophils % Seg Neuts % (Manual) Lymphocytes % (Manual) Eosinophils % (Manual) Nucleated RBC % Seg Neutrophils # Seg Neutrophils # Man Lymphocytes # (Manual) Eosinophils # (Manual) PT INR D-Dimer ABG pH POC ABG pCO2 53.4 H POC ABG pO2 71.0 L ABG pO2 ABG HCO3 ABG O2 Saturation ABG Base Excess ABG Hemoglobin 11.2 L ABG Oxyhemoglobin 93.6 L ABG Sodium 130.9 L ABG Potassium ABG Chloride 95.0 L ABG Glucose 188 H Oxyhemoglobin Carboxyhemoglobin Sodium Potassium Chloride Carbon Dioxide BUN Creatinine Glucose POC Glucose 174 H 188 H Lactic Acid Calcium Ferritin AST ALT Lactate Dehydrogenase C-Reactive Protein Total Protein Albumin Triglycerides Arterial Blood Glucose 188 H Arterial Blood Ionized Calcium 4.4 L Urine Creatinine Urine Total Protein Vancomycin Trough Coronavirus (PCR) SARS-CoV-2 IgG Ab 07/20/20 07/20/20 07/20/20 04:14 05:23 12:12 WBC RBC Hgb Hct MCH MCHC RDW Plt Count Lymph % (Auto) Lymph # (Auto) Seg Neutrophils % Seg Neuts % (Manual) Lymphocytes % (Manual) Eosinophils % (Manual) Nucleated RBC % Seg Neutrophils # Seg Neutrophils # Man Lymphocytes # (Manual) Eosinophils # (Manual) PT INR D-Dimer ABG pH POC ABG pCO2 52.7 H POC ABG pO2 59.5 L ABG pO2 ABG HCO3 ABG O2 Saturation ABG Base Excess ABG Hemoglobin 10.6 L ABG Oxyhemoglobin ABG Sodium 134.4 L ABG Potassium ABG Chloride ABG Glucose 176 H Oxyhemoglobin Carboxyhemoglobin Sodium Potassium Chloride Carbon Dioxide BUN Creatinine Glucose POC Glucose 212 H 190 H Lactic Acid Calcium Ferritin AST ALT Lactate Dehydrogenase C-Reactive Protein Total Protein Albumin Triglycerides Arterial Blood Glucose 176 H Arterial Blood Ionized Calcium 4.5 L Urine Creatinine Urine Total Protein Vancomycin Trough Coronavirus (PCR) SARS-CoV-2 IgG Ab 07/20/20 07/21/20 07/21/20 16:59 00:01 04:30 WBC RBC Hgb Hct MCH MCHC RDW Plt Count Lymph % (Auto) Lymph # (Auto) Seg Neutrophils % Seg Neuts % (Manual) Lymphocytes % (Manual) Eosinophils % (Manual) Nucleated RBC % Seg Neutrophils # Seg Neutrophils # Man Lymphocytes # (Manual) Eosinophils # (Manual) PT INR D-Dimer ABG pH 7.468 H POC ABG pCO2 POC ABG pO2 63.3 L ABG pO2 ABG HCO3 ABG O2 Saturation ABG Base Excess ABG Hemoglobin 11 L ABG Oxyhemoglobin ABG Sodium 135.0 L ABG Potassium ABG Chloride ABG Glucose 204 H Oxyhemoglobin Carboxyhemoglobin Sodium Potassium Chloride Carbon Dioxide BUN Creatinine Glucose POC Glucose 201 H 177 H Lactic Acid Calcium Ferritin AST ALT Lactate Dehydrogenase C-Reactive Protein Total Protein Albumin Triglycerides Arterial Blood Glucose 204 H Arterial Blood Ionized Calcium 4.5 L Urine Creatinine Urine Total Protein Vancomycin Trough Coronavirus (PCR) SARS-CoV-2 IgG Ab 07/21/20 07/21/20 07/21/20 05:26 11:50 17:16 WBC RBC Hgb Hct MCH MCHC RDW Plt Count Lymph % (Auto) Lymph # (Auto) Seg Neutrophils % Seg Neuts % (Manual) Lymphocytes % (Manual) Eosinophils % (Manual) Nucleated RBC % Seg Neutrophils # Seg Neutrophils # Man Lymphocytes # (Manual) Eosinophils # (Manual) PT INR D-Dimer ABG pH POC ABG pCO2 POC ABG pO2 ABG pO2 ABG HCO3 ABG O2 Saturation ABG Base Excess ABG Hemoglobin ABG Oxyhemoglobin ABG Sodium ABG Potassium ABG Chloride ABG Glucose Oxyhemoglobin Carboxyhemoglobin Sodium Potassium Chloride Carbon Dioxide BUN Creatinine Glucose POC Glucose 175 H 157 H 148 H Lactic Acid Calcium Ferritin AST ALT Lactate Dehydrogenase C-Reactive Protein Total Protein Albumin Triglycerides Arterial Blood Glucose Arterial Blood Ionized Calcium Urine Creatinine Urine Total Protein Vancomycin Trough Coronavirus (PCR) SARS-CoV-2 IgG Ab 07/22/20 07/22/20 07/22/20 00:01 03:26 05:16 WBC RBC Hgb Hct MCH MCHC RDW Plt Count Lymph % (Auto) Lymph # (Auto) Seg Neutrophils % Seg Neuts % (Manual) Lymphocytes % (Manual) Eosinophils % (Manual) Nucleated RBC % Seg Neutrophils # Seg Neutrophils # Man Lymphocytes # (Manual) Eosinophils # (Manual) PT INR D-Dimer ABG pH POC ABG pCO2 POC ABG pO2 54.2 L ABG pO2 ABG HCO3 ABG O2 Saturation ABG Base Excess ABG Hemoglobin 10.9 L ABG Oxyhemoglobin ABG Sodium 133.7 L ABG Potassium ABG Chloride ABG Glucose 217 H Oxyhemoglobin Carboxyhemoglobin Sodium Potassium Chloride Carbon Dioxide BUN Creatinine Glucose POC Glucose 172 H 182 H Lactic Acid Calcium Ferritin AST ALT Lactate Dehydrogenase C-Reactive Protein Total Protein Albumin Triglycerides Arterial Blood Glucose 217 H Arterial Blood Ionized Calcium 4.5 L Urine Creatinine Urine Total Protein Vancomycin Trough Coronavirus (PCR) SARS-CoV-2 IgG Ab 07/22/20 07/22/20 07/23/20 11:43 17:08 04:00 WBC 11.6 H RBC 3.54 L Hgb Hct MCH MCHC RDW Plt Count Lymph % (Auto) Lymph # (Auto) Seg Neutrophils % Seg Neuts % (Manual) 94.0 H Lymphocytes % (Manual) 5.0 L Eosinophils % (Manual) Nucleated RBC % Seg Neutrophils # Seg Neutrophils # Man 10.9 H Lymphocytes # (Manual) 0.6 L Eosinophils # (Manual) PT INR D-Dimer ABG pH POC ABG pCO2 POC ABG pO2 ABG pO2 ABG HCO3 ABG O2 Saturation ABG Base Excess ABG Hemoglobin ABG Oxyhemoglobin ABG Sodium ABG Potassium ABG Chloride ABG Glucose Oxyhemoglobin Carboxyhemoglobin Sodium Potassium Chloride Carbon Dioxide BUN Creatinine Glucose POC Glucose 159 H 163 H Lactic Acid Calcium Ferritin AST ALT Lactate Dehydrogenase C-Reactive Protein Total Protein Albumin Triglycerides Arterial Blood Glucose Arterial Blood Ionized Calcium Urine Creatinine Urine Total Protein Vancomycin Trough Coronavirus (PCR) SARS-CoV-2 IgG Ab 07/23/20 07/23/20 07/23/20 04:00 04:53 04:54 WBC RBC Hgb Hct MCH MCHC RDW Plt Count Lymph % (Auto) Lymph # (Auto) Seg Neutrophils % Seg Neuts % (Manual) Lymphocytes % (Manual) Eosinophils % (Manual) Nucleated RBC % Seg Neutrophils # Seg Neutrophils # Man Lymphocytes # (Manual) Eosinophils # (Manual) PT INR D-Dimer ABG pH 7.453 H POC ABG pCO2 POC ABG pO2 ABG pO2 ABG HCO3 32.4 H ABG O2 Saturation ABG Base Excess 7.5 H ABG Hemoglobin 10.7 L ABG Oxyhemoglobin ABG Sodium ABG Potassium ABG Chloride ABG Glucose Oxyhemoglobin Carboxyhemoglobin Sodium Potassium Chloride Carbon Dioxide 35 H BUN Creatinine 0.4 L Glucose 112 H POC Glucose 169 H Lactic Acid Calcium 8.2 L Ferritin AST ALT Lactate Dehydrogenase C-Reactive Protein Total Protein Albumin Triglycerides Arterial Blood Glucose Arterial Blood Ionized Calcium Urine Creatinine Urine Total Protein Vancomycin Trough Coronavirus (PCR) SARS-CoV-2 IgG Ab 07/23/20 07/23/20 07/23/20 11:50 23:19 Unknown WBC RBC Hgb Hct MCH MCHC RDW Plt Count Lymph % (Auto) Lymph # (Auto) Seg Neutrophils % Seg Neuts % (Manual) Lymphocytes % (Manual) Eosinophils % (Manual) Nucleated RBC % Seg Neutrophils # Seg Neutrophils # Man Lymphocytes # (Manual) Eosinophils # (Manual) PT INR D-Dimer ABG pH POC ABG pCO2 POC ABG pO2 ABG pO2 ABG HCO3 ABG O2 Saturation ABG Base Excess ABG Hemoglobin ABG Oxyhemoglobin ABG Sodium ABG Potassium ABG Chloride ABG Glucose Oxyhemoglobin Carboxyhemoglobin Sodium Potassium Chloride Carbon Dioxide BUN Creatinine Glucose POC Glucose 118 H 168 H Lactic Acid Calcium Ferritin AST ALT Lactate Dehydrogenase C-Reactive Protein Total Protein Albumin Triglycerides Arterial Blood Glucose Arterial Blood Ionized Calcium Urine Creatinine Urine Total Protein Vancomycin Trough Coronavirus (PCR) Positive A SARS-CoV-2 IgG Ab 07/24/20 07/24/20 07/24/20 04:11 05:37 11:42 WBC RBC Hgb Hct MCH MCHC RDW Plt Count Lymph % (Auto) Lymph # (Auto) Seg Neutrophils % Seg Neuts % (Manual) Lymphocytes % (Manual) Eosinophils % (Manual) Nucleated RBC % Seg Neutrophils # Seg Neutrophils # Man Lymphocytes # (Manual) Eosinophils # (Manual) PT INR D-Dimer ABG pH POC ABG pCO2 POC ABG pO2 ABG pO2 54.4 L ABG HCO3 34.3 H ABG O2 Saturation 89.0 L ABG Base Excess 8.5 H ABG Hemoglobin 11.0 L ABG Oxyhemoglobin ABG Sodium ABG Potassium ABG Chloride ABG Glucose Oxyhemoglobin 87.0 L Carboxyhemoglobin Sodium Potassium Chloride Carbon Dioxide BUN Creatinine Glucose POC Glucose 115 H 166 H Lactic Acid Calcium Ferritin AST ALT Lactate Dehydrogenase C-Reactive Protein Total Protein Albumin Triglycerides Arterial Blood Glucose Arterial Blood Ionized Calcium Urine Creatinine Urine Total Protein Vancomycin Trough Coronavirus (PCR) SARS-CoV-2 IgG Ab 07/24/20 07/24/20 07/25/20 17:39 23:38 03:53 WBC RBC Hgb Hct MCH MCHC RDW Plt Count Lymph % (Auto) Lymph # (Auto) Seg Neutrophils % Seg Neuts % (Manual) Lymphocytes % (Manual) Eosinophils % (Manual) Nucleated RBC % Seg Neutrophils # Seg Neutrophils # Man Lymphocytes # (Manual) Eosinophils # (Manual) PT INR D-Dimer ABG pH POC ABG pCO2 POC ABG pO2 ABG pO2 175.9 H ABG HCO3 34.0 H ABG O2 Saturation 99.1 H ABG Base Excess 8.2 H ABG Hemoglobin 10.6 L ABG Oxyhemoglobin ABG Sodium ABG Potassium ABG Chloride ABG Glucose Oxyhemoglobin Carboxyhemoglobin Sodium Potassium Chloride Carbon Dioxide BUN Creatinine Glucose POC Glucose 150 H 139 H Lactic Acid Calcium Ferritin AST ALT Lactate Dehydrogenase C-Reactive Protein Total Protein Albumin Triglycerides Arterial Blood Glucose Arterial Blood Ionized Calcium Urine Creatinine Urine Total Protein Vancomycin Trough Coronavirus (PCR) SARS-CoV-2 IgG Ab 07/25/20 07/25/20 07/25/20 05:47 12:09 23:46 WBC RBC Hgb Hct MCH MCHC RDW Plt Count Lymph % (Auto) Lymph # (Auto) Seg Neutrophils % Seg Neuts % (Manual) Lymphocytes % (Manual) Eosinophils % (Manual) Nucleated RBC % Seg Neutrophils # Seg Neutrophils # Man Lymphocytes # (Manual) Eosinophils # (Manual) PT INR D-Dimer ABG pH POC ABG pCO2 POC ABG pO2 ABG pO2 ABG HCO3 ABG O2 Saturation ABG Base Excess ABG Hemoglobin ABG Oxyhemoglobin ABG Sodium ABG Potassium ABG Chloride ABG Glucose Oxyhemoglobin Carboxyhemoglobin Sodium Potassium Chloride Carbon Dioxide BUN Creatinine Glucose POC Glucose 144 H 152 H 116 H Lactic Acid Calcium Ferritin AST ALT Lactate Dehydrogenase C-Reactive Protein Total Protein Albumin Triglycerides Arterial Blood Glucose Arterial Blood Ionized Calcium Urine Creatinine Urine Total Protein Vancomycin Trough Coronavirus (PCR) SARS-CoV-2 IgG Ab 07/26/20 07/26/20 07/26/20 03:48 05:36 11:28 WBC RBC Hgb Hct MCH MCHC RDW Plt Count Lymph % (Auto) Lymph # (Auto) Seg Neutrophils % Seg Neuts % (Manual) Lymphocytes % (Manual) Eosinophils % (Manual) Nucleated RBC % Seg Neutrophils # Seg Neutrophils # Man Lymphocytes # (Manual) Eosinophils # (Manual) PT INR D-Dimer ABG pH POC ABG pCO2 POC ABG pO2 ABG pO2 73.4 L ABG HCO3 35.0 H ABG O2 Saturation ABG Base Excess 8.3 H ABG Hemoglobin 9.8 L ABG Oxyhemoglobin ABG Sodium ABG Potassium ABG Chloride ABG Glucose Oxyhemoglobin 93.7 L Carboxyhemoglobin Sodium Potassium Chloride Carbon Dioxide BUN Creatinine Glucose POC Glucose 136 H 145 H Lactic Acid Calcium Ferritin AST ALT Lactate Dehydrogenase C-Reactive Protein Total Protein Albumin Triglycerides Arterial Blood Glucose Arterial Blood Ionized Calcium Urine Creatinine Urine Total Protein Vancomycin Trough Coronavirus (PCR) SARS-CoV-2 IgG Ab 07/26/20 07/26/20 07/26/20 14:23 17:19 23:33 WBC 12.0 H RBC 3.12 L Hgb 9.5 L Hct 28.6 L MCH MCHC RDW Plt Count Lymph % (Auto) 4.2 L Lymph # (Auto) 0.5 L Seg Neutrophils % 89.8 H Seg Neuts % (Manual) Lymphocytes % (Manual) Eosinophils % (Manual) Nucleated RBC % Seg Neutrophils # 10.8 H Seg Neutrophils # Man Lymphocytes # (Manual) Eosinophils # (Manual) PT INR D-Dimer ABG pH POC ABG pCO2 POC ABG pO2 ABG pO2 ABG HCO3 ABG O2 Saturation ABG Base Excess ABG Hemoglobin ABG Oxyhemoglobin ABG Sodium ABG Potassium ABG Chloride ABG Glucose Oxyhemoglobin Carboxyhemoglobin Sodium Potassium Chloride Carbon Dioxide BUN Creatinine Glucose POC Glucose 202 H 122 H Lactic Acid Calcium Ferritin AST ALT Lactate Dehydrogenase C-Reactive Protein Total Protein Albumin Triglycerides Arterial Blood Glucose Arterial Blood Ionized Calcium Urine Creatinine Urine Total Protein Vancomycin Trough Coronavirus (PCR) SARS-CoV-2 IgG Ab 07/27/20 07/27/20 07/27/20 04:30 05:54 12:06 WBC RBC Hgb Hct MCH MCHC RDW Plt Count Lymph % (Auto) Lymph # (Auto) Seg Neutrophils % Seg Neuts % (Manual) Lymphocytes % (Manual) Eosinophils % (Manual) Nucleated RBC % Seg Neutrophils # Seg Neutrophils # Man Lymphocytes # (Manual) Eosinophils # (Manual) PT INR D-Dimer ABG pH POC ABG pCO2 POC ABG pO2 ABG pO2 49.0 L ABG HCO3 35.7 H ABG O2 Saturation 87.6 L ABG Base Excess 10.1 H ABG Hemoglobin 11.5 L ABG Oxyhemoglobin ABG Sodium ABG Potassium ABG Chloride ABG Glucose Oxyhemoglobin 85.4 L Carboxyhemoglobin Sodium Potassium Chloride Carbon Dioxide BUN Creatinine Glucose POC Glucose 164 H 149 H Lactic Acid Calcium Ferritin AST ALT Lactate Dehydrogenase C-Reactive Protein Total Protein Albumin Triglycerides Arterial Blood Glucose Arterial Blood Ionized Calcium Urine Creatinine Urine Total Protein Vancomycin Trough Coronavirus (PCR) SARS-CoV-2 IgG Ab 07/27/20 07/27/20 07/27/20 13:00 14:18 14:18 WBC 12.2 H RBC 3.33 L Hgb 10.0 L Hct MCH MCHC RDW Plt Count Lymph % (Auto) Lymph # (Auto) Seg Neutrophils % Seg Neuts % (Manual) 90.0 H Lymphocytes % (Manual) 7.0 L Eosinophils % (Manual) Nucleated RBC % Seg Neutrophils # Seg Neutrophils # Man 11.0 H Lymphocytes # (Manual) 0.9 L Eosinophils # (Manual) PT INR D-Dimer ABG pH 7.313 L POC ABG pCO2 POC ABG pO2 ABG pO2 107.5 H ABG HCO3 37.6 H ABG O2 Saturation ABG Base Excess 8.1 H ABG Hemoglobin 10.1 L ABG Oxyhemoglobin ABG Sodium ABG Potassium ABG Chloride ABG Glucose Oxyhemoglobin Carboxyhemoglobin Sodium Potassium Chloride 97.6 L Carbon Dioxide 35 H BUN 18 H Creatinine Glucose 135 H POC Glucose Lactic Acid Calcium 8.3 L Ferritin AST ALT Lactate Dehydrogenase C-Reactive Protein Total Protein Albumin Triglycerides Arterial Blood Glucose Arterial Blood Ionized Calcium Urine Creatinine Urine Total Protein Vancomycin Trough Coronavirus (PCR) SARS-CoV-2 IgG Ab 07/27/20 07/27/20 07/28/20 17:09 23:14 04:15 WBC RBC Hgb Hct MCH MCHC RDW Plt Count Lymph % (Auto) Lymph # (Auto) Seg Neutrophils % Seg Neuts % (Manual) Lymphocytes % (Manual) Eosinophils % (Manual) Nucleated RBC % Seg Neutrophils # Seg Neutrophils # Man Lymphocytes # (Manual) Eosinophils # (Manual) PT INR D-Dimer ABG pH 7.317 L POC ABG pCO2 POC ABG pO2 ABG pO2 130.3 H ABG HCO3 40.9 H ABG O2 Saturation ABG Base Excess 13.5 H ABG Hemoglobin 5.8 L ABG Oxyhemoglobin ABG Sodium ABG Potassium ABG Chloride ABG Glucose Oxyhemoglobin Carboxyhemoglobin Sodium Potassium Chloride Carbon Dioxide BUN Creatinine Glucose POC Glucose 115 H 139 H Lactic Acid Calcium Ferritin AST ALT Lactate Dehydrogenase C-Reactive Protein Total Protein Albumin Triglycerides Arterial Blood Glucose Arterial Blood Ionized Calcium Urine Creatinine Urine Total Protein Vancomycin Trough Coronavirus (PCR) SARS-CoV-2 IgG Ab 07/28/20 07/28/20 07/28/20 05:34 09:20 09:20 WBC RBC 2.89 L Hgb 9.5 L Hct 26.6 L MCH 33 H MCHC 36 H RDW Plt Count 123 L Lymph % (Auto) Lymph # (Auto) Seg Neutrophils % Seg Neuts % (Manual) 89.0 H Lymphocytes % (Manual) 5.0 L Eosinophils % (Manual) Nucleated RBC % Seg Neutrophils # Seg Neutrophils # Man 8.6 H Lymphocytes # (Manual) 0.5 L Eosinophils # (Manual) PT INR D-Dimer ABG pH POC ABG pCO2 POC ABG pO2 ABG pO2 ABG HCO3 ABG O2 Saturation ABG Base Excess ABG Hemoglobin ABG Oxyhemoglobin ABG Sodium ABG Potassium ABG Chloride ABG Glucose Oxyhemoglobin Carboxyhemoglobin Sodium 134 L Potassium Chloride 95.6 L Carbon Dioxide 39 H BUN Creatinine 0.3 L Glucose 131 H POC Glucose 130 H Lactic Acid Calcium 7.9 L Ferritin AST ALT Lactate Dehydrogenase C-Reactive Protein Total Protein Albumin Triglycerides Arterial Blood Glucose Arterial Blood Ionized Calcium Urine Creatinine Urine Total Protein Vancomycin Trough Coronavirus (PCR) SARS-CoV-2 IgG Ab 07/28/20 07/28/20 07/28/20 11:50 18:36 23:22 WBC RBC Hgb Hct MCH MCHC RDW Plt Count Lymph % (Auto) Lymph # (Auto) Seg Neutrophils % Seg Neuts % (Manual) Lymphocytes % (Manual) Eosinophils % (Manual) Nucleated RBC % Seg Neutrophils # Seg Neutrophils # Man Lymphocytes # (Manual) Eosinophils # (Manual) PT INR D-Dimer ABG pH POC ABG pCO2 POC ABG pO2 ABG pO2 ABG HCO3 ABG O2 Saturation ABG Base Excess ABG Hemoglobin ABG Oxyhemoglobin ABG Sodium ABG Potassium ABG Chloride ABG Glucose Oxyhemoglobin Carboxyhemoglobin Sodium Potassium Chloride Carbon Dioxide BUN Creatinine Glucose POC Glucose 128 H 119 H 122 H Lactic Acid Calcium Ferritin AST ALT Lactate Dehydrogenase C-Reactive Protein Total Protein Albumin Triglycerides Arterial Blood Glucose Arterial Blood Ionized Calcium Urine Creatinine Urine Total Protein Vancomycin Trough Coronavirus (PCR) SARS-CoV-2 IgG Ab 07/29/20 07/29/20 07/29/20 03:18 07:54 07:54 WBC 11.1 H RBC 3.49 L Hgb Hct MCH MCHC RDW Plt Count 139 L Lymph % (Auto) Lymph # (Auto) Seg Neutrophils % Seg Neuts % (Manual) 90.0 H Lymphocytes % (Manual) 1.0 L Eosinophils % (Manual) 5.0 H Nucleated RBC % Seg Neutrophils # Seg Neutrophils # Man 10.0 H Lymphocytes # (Manual) 0.1 L Eosinophils # (Manual) 0.6 H PT INR D-Dimer ABG pH POC ABG pCO2 69.5 H POC ABG pO2 109.3 H ABG pO2 ABG HCO3 ABG O2 Saturation ABG Base Excess ABG Hemoglobin 10.8 L ABG Oxyhemoglobin ABG Sodium ABG Potassium ABG Chloride 95.0 L ABG Glucose 138 H Oxyhemoglobin Carboxyhemoglobin Sodium Potassium Chloride 94.5 L Carbon Dioxide 40 H BUN Creatinine 0.5 L D Glucose 104 H POC Glucose Lactic Acid Calcium Ferritin AST ALT Lactate Dehydrogenase C-Reactive Protein Total Protein Albumin Triglycerides Arterial Blood Glucose 138 H Arterial Blood Ionized Calcium Urine Creatinine Urine Total Protein Vancomycin Trough Coronavirus (PCR) SARS-CoV-2 IgG Ab 07/29/20 07/29/20 07/29/20 11:05 18:17 19:41 WBC RBC Hgb Hct MCH MCHC RDW Plt Count Lymph % (Auto) Lymph # (Auto) Seg Neutrophils % Seg Neuts % (Manual) Lymphocytes % (Manual) Eosinophils % (Manual) Nucleated RBC % Seg Neutrophils # Seg Neutrophils # Man Lymphocytes # (Manual) Eosinophils # (Manual) PT INR D-Dimer ABG pH 7.305 L POC ABG pCO2 73.3 H 66.7 H POC ABG pO2 28.2 L 32.7 L ABG pO2 ABG HCO3 ABG O2 Saturation ABG Base Excess ABG Hemoglobin 11.8 L 11.5 L ABG Oxyhemoglobin ABG Sodium ABG Potassium ABG Chloride 94.0 L 95.0 L ABG Glucose 207 H 141 H Oxyhemoglobin Carboxyhemoglobin Sodium Potassium Chloride Carbon Dioxide BUN Creatinine Glucose POC Glucose 113 H Lactic Acid Calcium Ferritin AST ALT Lactate Dehydrogenase C-Reactive Protein Total Protein Albumin Triglycerides Arterial Blood Glucose 207 H 141 H Arterial Blood Ionized Calcium 4.5 L Urine Creatinine Urine Total Protein Vancomycin Trough Coronavirus (PCR) SARS-CoV-2 IgG Ab 07/29/20 07/30/20 07/30/20 23:28 04:47 05:28 WBC RBC Hgb Hct MCH MCHC RDW Plt Count Lymph % (Auto) Lymph # (Auto) Seg Neutrophils % Seg Neuts % (Manual) Lymphocytes % (Manual) Eosinophils % (Manual) Nucleated RBC % Seg Neutrophils # Seg Neutrophils # Man Lymphocytes # (Manual) Eosinophils # (Manual) PT INR D-Dimer ABG pH POC ABG pCO2 55.1 H POC ABG pO2 43.6 L ABG pO2 ABG HCO3 ABG O2 Saturation ABG Base Excess ABG Hemoglobin 11.9 L ABG Oxyhemoglobin ABG Sodium ABG Potassium ABG Chloride 96.0 L ABG Glucose 150 H Oxyhemoglobin Carboxyhemoglobin Sodium Potassium Chloride Carbon Dioxide BUN Creatinine Glucose POC Glucose 121 H 143 H Lactic Acid Calcium Ferritin AST ALT Lactate Dehydrogenase C-Reactive Protein Total Protein Albumin Triglycerides Arterial Blood Glucose 150 H Arterial Blood Ionized Calcium Urine Creatinine Urine Total Protein Vancomycin Trough Coronavirus (PCR) SARS-CoV-2 IgG Ab 07/30/20 07/30/20 07/30/20 08:18 12:00 14:17 WBC RBC Hgb Hct MCH MCHC RDW Plt Count Lymph % (Auto) Lymph # (Auto) Seg Neutrophils % Seg Neuts % (Manual) Lymphocytes % (Manual) Eosinophils % (Manual) Nucleated RBC % Seg Neutrophils # Seg Neutrophils # Man Lymphocytes # (Manual) Eosinophils # (Manual) PT INR D-Dimer ABG pH POC ABG pCO2 63.3 H 64.6 H POC ABG pO2 47.9 L 41.0 L ABG pO2 ABG HCO3 ABG O2 Saturation ABG Base Excess ABG Hemoglobin 10.5 L 10.2 L ABG Oxyhemoglobin 84.9 L ABG Sodium ABG Potassium ABG Chloride 97.0 L ABG Glucose 170 H 175 H Oxyhemoglobin Carboxyhemoglobin Sodium Potassium Chloride Carbon Dioxide BUN Creatinine Glucose POC Glucose 161 H Lactic Acid Calcium Ferritin AST ALT Lactate Dehydrogenase C-Reactive Protein Total Protein Albumin Triglycerides Arterial Blood Glucose 170 H 175 H Arterial Blood Ionized Calcium 4.4 L 4.4 L Urine Creatinine Urine Total Protein Vancomycin Trough Coronavirus (PCR) SARS-CoV-2 IgG Ab 07/30/20 07/30/20 07/30/20 15:15 15:15 15:15 WBC RBC 2.80 L Hgb 9.1 L Hct 26.0 L D MCH MCHC 35 H RDW Plt Count 101 L Lymph % (Auto) Lymph # (Auto) Seg Neutrophils % Seg Neuts % (Manual) 90.0 H Lymphocytes % (Manual) 7.0 L Eosinophils % (Manual) Nucleated RBC % Seg Neutrophils # Seg Neutrophils # Man Lymphocytes # (Manual) 0.4 L Eosinophils # (Manual) PT INR D-Dimer ABG pH POC ABG pCO2 POC ABG pO2 ABG pO2 ABG HCO3 ABG O2 Saturation ABG Base Excess ABG Hemoglobin ABG Oxyhemoglobin ABG Sodium ABG Potassium ABG Chloride ABG Glucose Oxyhemoglobin Carboxyhemoglobin Sodium Potassium Chloride 97.1 L Carbon Dioxide 32 H D BUN 39 H Creatinine 1.3 H D Glucose 167 H POC Glucose Lactic Acid Calcium 8.0 L Ferritin AST ALT Lactate Dehydrogenase C-Reactive Protein Total Protein Albumin Triglycerides 837 H Arterial Blood Glucose Arterial Blood Ionized Calcium Urine Creatinine Urine Total Protein Vancomycin Trough Coronavirus (PCR) SARS-CoV-2 IgG Ab 07/30/20 07/30/20 07/30/20 15:15 17:03 17:43 WBC RBC Hgb Hct MCH MCHC RDW Plt Count Lymph % (Auto) Lymph # (Auto) Seg Neutrophils % Seg Neuts % (Manual) Lymphocytes % (Manual) Eosinophils % (Manual) Nucleated RBC % Seg Neutrophils # Seg Neutrophils # Man Lymphocytes # (Manual) Eosinophils # (Manual) PT INR D-Dimer ABG pH POC ABG pCO2 POC ABG pO2 ABG pO2 ABG HCO3 ABG O2 Saturation ABG Base Excess ABG Hemoglobin ABG Oxyhemoglobin ABG Sodium ABG Potassium ABG Chloride ABG Glucose Oxyhemoglobin Carboxyhemoglobin Sodium Potassium Chloride Carbon Dioxide BUN Creatinine Glucose POC Glucose 171 H Lactic Acid 2.20 H* 3.60 H* Calcium Ferritin AST ALT Lactate Dehydrogenase C-Reactive Protein Total Protein Albumin Triglycerides Arterial Blood Glucose Arterial Blood Ionized Calcium Urine Creatinine Urine Total Protein Vancomycin Trough Coronavirus (PCR) SARS-CoV-2 IgG Ab 07/30/20 07/30/20 07/31/20 20:13 23:37 04:15 WBC RBC Hgb Hct MCH MCHC RDW Plt Count Lymph % (Auto) Lymph # (Auto) Seg Neutrophils % Seg Neuts % (Manual) Lymphocytes % (Manual) Eosinophils % (Manual) Nucleated RBC % Seg Neutrophils # Seg Neutrophils # Man Lymphocytes # (Manual) Eosinophils # (Manual) PT INR D-Dimer ABG pH 7.544 H 7.489 H POC ABG pCO2 POC ABG pO2 44.4 L 50.0 L ABG pO2 ABG HCO3 ABG O2 Saturation ABG Base Excess ABG Hemoglobin 10.4 L ABG Oxyhemoglobin ABG Sodium 135.3 L ABG Potassium ABG Chloride ABG Glucose 201 H 199 H Oxyhemoglobin Carboxyhemoglobin Sodium Potassium Chloride Carbon Dioxide BUN Creatinine Glucose POC Glucose 160 H Lactic Acid Calcium Ferritin AST ALT Lactate Dehydrogenase C-Reactive Protein Total Protein Albumin Triglycerides Arterial Blood Glucose 201 H 199 H Arterial Blood Ionized Calcium 4.2 L 4.4 L Urine Creatinine Urine Total Protein Vancomycin Trough Coronavirus (PCR) SARS-CoV-2 IgG Ab 07/31/20 07/31/20 07/31/20 05:16 05:16 05:28 WBC RBC 3.03 L Hgb 9.2 L Hct 27.6 L MCH MCHC RDW Plt Count 118 L Lymph % (Auto) 6.3 L Lymph # (Auto) 0.5 L Seg Neutrophils % Seg Neuts % (Manual) Lymphocytes % (Manual) Eosinophils % (Manual) Nucleated RBC % Seg Neutrophils # Seg Neutrophils # Man Lymphocytes # (Manual) Eosinophils # (Manual) PT INR D-Dimer ABG pH POC ABG pCO2 POC ABG pO2 ABG pO2 ABG HCO3 ABG O2 Saturation ABG Base Excess ABG Hemoglobin ABG Oxyhemoglobin ABG Sodium ABG Potassium ABG Chloride ABG Glucose Oxyhemoglobin Carboxyhemoglobin Sodium Potassium Chloride Carbon Dioxide BUN 57 H Creatinine 1.7 H Glucose 208 H POC Glucose 182 H Lactic Acid Calcium 8.3 L Ferritin AST 613 H ALT 760 H Lactate Dehydrogenase C-Reactive Protein Total Protein 5.6 L Albumin 2.2 L Triglycerides Arterial Blood Glucose Arterial Blood Ionized Calcium Urine Creatinine Urine Total Protein Vancomycin Trough Coronavirus (PCR) SARS-CoV-2 IgG Ab 07/31/20 07/31/20 07/31/20 11:02 14:14 14:14 WBC RBC Hgb Hct MCH MCHC RDW Plt Count Lymph % (Auto) Lymph # (Auto) Seg Neutrophils % Seg Neuts % (Manual) Lymphocytes % (Manual) Eosinophils % (Manual) Nucleated RBC % Seg Neutrophils # Seg Neutrophils # Man Lymphocytes # (Manual) Eosinophils # (Manual) PT INR D-Dimer 2522.40 H ABG pH POC ABG pCO2 POC ABG pO2 ABG pO2 ABG HCO3 ABG O2 Saturation ABG Base Excess ABG Hemoglobin ABG Oxyhemoglobin ABG Sodium ABG Potassium ABG Chloride ABG Glucose Oxyhemoglobin Carboxyhemoglobin Sodium Potassium Chloride Carbon Dioxide BUN Creatinine Glucose POC Glucose 200 H Lactic Acid Calcium Ferritin 964.8 H AST ALT Lactate Dehydrogenase C-Reactive Protein Total Protein Albumin Triglycerides Arterial Blood Glucose Arterial Blood Ionized Calcium Urine Creatinine Urine Total Protein Vancomycin Trough Coronavirus (PCR) SARS-CoV-2 IgG Ab 07/31/20 07/31/20 07/31/20 14:14 14:14 16:00 WBC RBC Hgb Hct MCH MCHC RDW Plt Count Lymph % (Auto) Lymph # (Auto) Seg Neutrophils % Seg Neuts % (Manual) Lymphocytes % (Manual) Eosinophils % (Manual) Nucleated RBC % Seg Neutrophils # Seg Neutrophils # Man Lymphocytes # (Manual) Eosinophils # (Manual) PT INR D-Dimer ABG pH POC ABG pCO2 POC ABG pO2 ABG pO2 ABG HCO3 ABG O2 Saturation ABG Base Excess ABG Hemoglobin ABG Oxyhemoglobin ABG Sodium ABG Potassium ABG Chloride ABG Glucose Oxyhemoglobin Carboxyhemoglobin Sodium Potassium Chloride Carbon Dioxide BUN Creatinine Glucose POC Glucose Lactic Acid Calcium Ferritin AST ALT Lactate Dehydrogenase 585 H C-Reactive Protein 49.00 H Total Protein Albumin Triglycerides Arterial Blood Glucose Arterial Blood Ionized Calcium Urine Creatinine 89.2 H Urine Total Protein 108 H Vancomycin Trough 28.2 H Coronavirus (PCR) SARS-CoV-2 IgG Ab 07/31/20 07/31/20 08/01/20 17:22 21:26 00:07 WBC RBC Hgb Hct MCH MCHC RDW Plt Count Lymph % (Auto) Lymph # (Auto) Seg Neutrophils % Seg Neuts % (Manual) Lymphocytes % (Manual) Eosinophils % (Manual) Nucleated RBC % Seg Neutrophils # Seg Neutrophils # Man Lymphocytes # (Manual) Eosinophils # (Manual) PT INR D-Dimer ABG pH POC ABG pCO2 POC ABG pO2 156.0 H ABG pO2 ABG HCO3 ABG O2 Saturation ABG Base Excess ABG Hemoglobin 9.6 L ABG Oxyhemoglobin 98.4 H ABG Sodium 135.9 L ABG Potassium ABG Chloride ABG Glucose 290 H Oxyhemoglobin Carboxyhemoglobin 0.4 L Sodium Potassium Chloride Carbon Dioxide BUN Creatinine Glucose POC Glucose 229 H 255 H Lactic Acid Calcium Ferritin AST ALT Lactate Dehydrogenase C-Reactive Protein Total Protein Albumin Triglycerides Arterial Blood Glucose 290 H Arterial Blood Ionized Calcium 4.5 L Urine Creatinine Urine Total Protein Vancomycin Trough Coronavirus (PCR) SARS-CoV-2 IgG Ab 08/01/20 08/01/20 08/01/20 04:46 05:30 05:30 WBC RBC 2.27 L Hgb 7.6 L Hct 20.9 L D MCH 34 H MCHC 37 H RDW Plt Count 85 L Lymph % (Auto) Lymph # (Auto) Seg Neutrophils % Seg Neuts % (Manual) 87.0 H Lymphocytes % (Manual) 2.0 L Eosinophils % (Manual) Nucleated RBC % 1.0 H Seg Neutrophils # Seg Neutrophils # Man Lymphocytes # (Manual) 0.1 L Eosinophils # (Manual) PT INR D-Dimer ABG pH 7.462 H POC ABG pCO2 POC ABG pO2 70.2 L ABG pO2 ABG HCO3 ABG O2 Saturation ABG Base Excess ABG Hemoglobin 8.7 L ABG Oxyhemoglobin ABG Sodium 135.7 L ABG Potassium 3.3 L ABG Chloride ABG Glucose 275 H Oxyhemoglobin Carboxyhemoglobin Sodium 132 L D Potassium 2.8 L* D Chloride Carbon Dioxide BUN 47 H Creatinine Glucose 217 H POC Glucose Lactic Acid Calcium 6.6 L D Ferritin AST 117 H ALT 408 H Lactate Dehydrogenase C-Reactive Protein Total Protein 4.3 L D Albumin 0.6 L Triglycerides 2335 H Arterial Blood Glucose 275 H Arterial Blood Ionized Calcium 4.5 L Urine Creatinine Urine Total Protein Vancomycin Trough Coronavirus (PCR) SARS-CoV-2 IgG Ab 08/01/20 08/01/20 08/01/20 05:34 09:33 11:50 WBC RBC Hgb Hct MCH MCHC RDW Plt Count Lymph % (Auto) Lymph # (Auto) Seg Neutrophils % Seg Neuts % (Manual) Lymphocytes % (Manual) Eosinophils % (Manual) Nucleated RBC % Seg Neutrophils # Seg Neutrophils # Man Lymphocytes # (Manual) Eosinophils # (Manual) PT INR D-Dimer ABG pH POC ABG pCO2 POC ABG pO2 ABG pO2 ABG HCO3 ABG O2 Saturation ABG Base Excess ABG Hemoglobin ABG Oxyhemoglobin ABG Sodium ABG Potassium ABG Chloride ABG Glucose Oxyhemoglobin Carboxyhemoglobin Sodium Potassium Chloride Carbon Dioxide BUN 57 H Creatinine Glucose 250 H POC Glucose 246 H 239 H Lactic Acid Calcium 8.2 L D Ferritin AST ALT Lactate Dehydrogenase C-Reactive Protein Total Protein Albumin Triglycerides 759 H Arterial Blood Glucose Arterial Blood Ionized Calcium Urine Creatinine Urine Total Protein Vancomycin Trough Coronavirus (PCR) SARS-CoV-2 IgG Ab 08/01/20 08/01/20 08/02/20 17:14 23:21 04:22 WBC RBC Hgb Hct MCH MCHC RDW Plt Count Lymph % (Auto) Lymph # (Auto) Seg Neutrophils % Seg Neuts % (Manual) Lymphocytes % (Manual) Eosinophils % (Manual) Nucleated RBC % Seg Neutrophils # Seg Neutrophils # Man Lymphocytes # (Manual) Eosinophils # (Manual) PT INR D-Dimer ABG pH 7.268 L POC ABG pCO2 56.6 H POC ABG pO2 ABG pO2 ABG HCO3 ABG O2 Saturation ABG Base Excess ABG Hemoglobin 8.4 L ABG Oxyhemoglobin ABG Sodium ABG Potassium 4.9 H ABG Chloride ABG Glucose 261 H Oxyhemoglobin Carboxyhemoglobin Sodium Potassium Chloride Carbon Dioxide BUN Creatinine Glucose POC Glucose 219 H 242 H Lactic Acid Calcium Ferritin AST ALT Lactate Dehydrogenase C-Reactive Protein Total Protein Albumin Triglycerides Arterial Blood Glucose 261 H Arterial Blood Ionized Calcium Urine Creatinine Urine Total Protein Vancomycin Trough Coronavirus (PCR) SARS-CoV-2 IgG Ab 08/02/20 08/02/20 08/02/20 05:05 06:37 06:37 WBC RBC 3.40 L Hgb 10.0 L Hct MCH MCHC RDW 16.2 H Plt Count 87 L Lymph % (Auto) Lymph # (Auto) Seg Neutrophils % Seg Neuts % (Manual) 82.0 H Lymphocytes % (Manual) 3.0 L Eosinophils % (Manual) Nucleated RBC % 2.0 H Seg Neutrophils # Seg Neutrophils # Man 9.0 H Lymphocytes # (Manual) 0.3 L Eosinophils # (Manual) PT INR D-Dimer ABG pH POC ABG pCO2 POC ABG pO2 ABG pO2 ABG HCO3 ABG O2 Saturation ABG Base Excess ABG Hemoglobin ABG Oxyhemoglobin ABG Sodium ABG Potassium ABG Chloride ABG Glucose Oxyhemoglobin Carboxyhemoglobin Sodium Potassium 5.3 H D Chloride Carbon Dioxide BUN 53 H Creatinine Glucose 267 H POC Glucose 254 H Lactic Acid Calcium 8.1 L Ferritin AST 43 H ALT 334 H Lactate Dehydrogenase C-Reactive Protein Total Protein 5.4 L D Albumin 1.9 L Triglycerides Arterial Blood Glucose Arterial Blood Ionized Calcium Urine Creatinine Urine Total Protein Vancomycin Trough Coronavirus (PCR) SARS-CoV-2 IgG Ab 08/02/20 08/02/20 08/02/20 06:37 11:34 17:04 WBC RBC Hgb Hct MCH MCHC RDW Plt Count Lymph % (Auto) Lymph # (Auto) Seg Neutrophils % Seg Neuts % (Manual) Lymphocytes % (Manual) Eosinophils % (Manual) Nucleated RBC % Seg Neutrophils # Seg Neutrophils # Man Lymphocytes # (Manual) Eosinophils # (Manual) PT INR D-Dimer ABG pH POC ABG pCO2 POC ABG pO2 ABG pO2 ABG HCO3 ABG O2 Saturation ABG Base Excess ABG Hemoglobin ABG Oxyhemoglobin ABG Sodium ABG Potassium ABG Chloride ABG Glucose Oxyhemoglobin Carboxyhemoglobin Sodium Potassium Chloride Carbon Dioxide BUN Creatinine Glucose POC Glucose 279 H 256 H Lactic Acid Calcium Ferritin AST ALT Lactate Dehydrogenase C-Reactive Protein Total Protein Albumin Triglycerides 717 H Arterial Blood Glucose Arterial Blood Ionized Calcium Urine Creatinine Urine Total Protein Vancomycin Trough Coronavirus (PCR) SARS-CoV-2 IgG Ab 08/02/20 08/03/20 08/03/20 23:23 01:25 04:49 WBC 13.2 H RBC 2.83 L Hgb 8.4 L Hct 26.3 L MCH MCHC RDW 16.4 H Plt Count Lymph % (Auto) Lymph # (Auto) Seg Neutrophils % Seg Neuts % (Manual) Lymphocytes % (Manual) 2.0 L Eosinophils % (Manual) Nucleated RBC % 1.0 H Seg Neutrophils # Seg Neutrophils # Man 7.8 H Lymphocytes # (Manual) 0.3 L Eosinophils # (Manual) PT INR D-Dimer ABG pH 7.302 L POC ABG pCO2 56.0 H POC ABG pO2 39.6 L ABG pO2 ABG HCO3 ABG O2 Saturation ABG Base Excess ABG Hemoglobin 9.1 L ABG Oxyhemoglobin ABG Sodium ABG Potassium 4.8 H ABG Chloride 108.0 H ABG Glucose 275 H Oxyhemoglobin Carboxyhemoglobin Sodium Potassium Chloride Carbon Dioxide BUN Creatinine Glucose POC Glucose 214 H Lactic Acid Calcium Ferritin AST ALT Lactate Dehydrogenase C-Reactive Protein Total Protein Albumin Triglycerides Arterial Blood Glucose 275 H Arterial Blood Ionized Calcium Urine Creatinine Urine Total Protein Vancomycin Trough Coronavirus (PCR) SARS-CoV-2 IgG Ab 08/03/20 08/03/20 08/03/20 04:49 04:49 05:11 WBC RBC Hgb Hct MCH MCHC RDW Plt Count Lymph % (Auto) Lymph # (Auto) Seg Neutrophils % Seg Neuts % (Manual) Lymphocytes % (Manual) Eosinophils % (Manual) Nucleated RBC % Seg Neutrophils # Seg Neutrophils # Man Lymphocytes # (Manual) Eosinophils # (Manual) PT INR D-Dimer ABG pH POC ABG pCO2 POC ABG pO2 ABG pO2 ABG HCO3 ABG O2 Saturation ABG Base Excess ABG Hemoglobin ABG Oxyhemoglobin ABG Sodium ABG Potassium ABG Chloride ABG Glucose Oxyhemoglobin Carboxyhemoglobin Sodium Potassium Chloride Carbon Dioxide BUN 39 H Creatinine Glucose 263 H POC Glucose 230 H Lactic Acid Calcium 8.1 L Ferritin AST ALT 242 H Lactate Dehydrogenase C-Reactive Protein Total Protein 5.4 L Albumin 2.2 L Triglycerides 500 H Arterial Blood Glucose Arterial Blood Ionized Calcium Urine Creatinine Urine Total Protein Vancomycin Trough Coronavirus (PCR) SARS-CoV-2 IgG Ab 08/03/20 08/03/20 08/03/20 11:55 17:07 23:25 WBC RBC Hgb Hct MCH MCHC RDW Plt Count Lymph % (Auto) Lymph # (Auto) Seg Neutrophils % Seg Neuts % (Manual) Lymphocytes % (Manual) Eosinophils % (Manual) Nucleated RBC % Seg Neutrophils # Seg Neutrophils # Man Lymphocytes # (Manual) Eosinophils # (Manual) PT INR D-Dimer ABG pH POC ABG pCO2 POC ABG pO2 ABG pO2 ABG HCO3 ABG O2 Saturation ABG Base Excess ABG Hemoglobin ABG Oxyhemoglobin ABG Sodium ABG Potassium ABG Chloride ABG Glucose Oxyhemoglobin Carboxyhemoglobin Sodium Potassium Chloride Carbon Dioxide BUN Creatinine Glucose POC Glucose 238 H 205 H 211 H Lactic Acid Calcium Ferritin AST ALT Lactate Dehydrogenase C-Reactive Protein Total Protein Albumin Triglycerides Arterial Blood Glucose Arterial Blood Ionized Calcium Urine Creatinine Urine Total Protein Vancomycin Trough Coronavirus (PCR) SARS-CoV-2 IgG Ab 08/04/20 08/04/20 08/04/20 03:16 05:31 12:07 WBC RBC Hgb Hct MCH MCHC RDW Plt Count Lymph % (Auto) Lymph # (Auto) Seg Neutrophils % Seg Neuts % (Manual) Lymphocytes % (Manual) Eosinophils % (Manual) Nucleated RBC % Seg Neutrophils # Seg Neutrophils # Man Lymphocytes # (Manual) Eosinophils # (Manual) PT INR D-Dimer ABG pH 7.154 L POC ABG pCO2 80.7 H POC ABG pO2 ABG pO2 ABG HCO3 ABG O2 Saturation ABG Base Excess ABG Hemoglobin 8.5 L ABG Oxyhemoglobin ABG Sodium ABG Potassium 5.1 H ABG Chloride 109.0 H ABG Glucose 226 H Oxyhemoglobin Carboxyhemoglobin Sodium Potassium Chloride Carbon Dioxide BUN Creatinine Glucose POC Glucose 201 H 213 H Lactic Acid Calcium Ferritin AST ALT Lactate Dehydrogenase C-Reactive Protein Total Protein Albumin Triglycerides Arterial Blood Glucose 226 H Arterial Blood Ionized Calcium Urine Creatinine Urine Total Protein Vancomycin Trough Coronavirus (PCR) SARS-CoV-2 IgG Ab 08/04/20 08/04/20 08/04/20 17:39 23:17 Unknown WBC RBC 2.38 L Hgb 7.1 L Hct 22.4 L MCH MCHC RDW 16.5 H Plt Count Lymph % (Auto) Lymph # (Auto) Seg Neutrophils % Seg Neuts % (Manual) Lymphocytes % (Manual) 1.0 L Eosinophils % (Manual) Nucleated RBC % Seg Neutrophils # Seg Neutrophils # Man Lymphocytes # (Manual) 0.1 L Eosinophils # (Manual) PT INR D-Dimer ABG pH POC ABG pCO2 POC ABG pO2 ABG pO2 ABG HCO3 ABG O2 Saturation ABG Base Excess ABG Hemoglobin ABG Oxyhemoglobin ABG Sodium ABG Potassium ABG Chloride ABG Glucose Oxyhemoglobin Carboxyhemoglobin Sodium Potassium Chloride Carbon Dioxide BUN Creatinine Glucose POC Glucose 155 H 107 H Lactic Acid Calcium Ferritin AST ALT Lactate Dehydrogenase C-Reactive Protein Total Protein Albumin Triglycerides Arterial Blood Glucose Arterial Blood Ionized Calcium Urine Creatinine Urine Total Protein Vancomycin Trough Coronavirus (PCR) SARS-CoV-2 IgG Ab 08/04/20 08/05/20 08/05/20 Unknown 05:14 05:50 WBC RBC Hgb Hct MCH MCHC RDW Plt Count Lymph % (Auto) Lymph # (Auto) Seg Neutrophils % Seg Neuts % (Manual) Lymphocytes % (Manual) Eosinophils % (Manual) Nucleated RBC % Seg Neutrophils # Seg Neutrophils # Man Lymphocytes # (Manual) Eosinophils # (Manual) PT INR D-Dimer ABG pH POC ABG pCO2 51.7 H POC ABG pO2 63.3 L ABG pO2 ABG HCO3 ABG O2 Saturation ABG Base Excess ABG Hemoglobin 9.9 L ABG Oxyhemoglobin ABG Sodium 146.9 H ABG Potassium ABG Chloride 113.0 H ABG Glucose 112 H Oxyhemoglobin Carboxyhemoglobin Sodium Potassium Chloride 113.1 H Carbon Dioxide BUN 27 H Creatinine 0.5 L Glucose 190 H POC Glucose 126 H Lactic Acid Calcium 7.5 L Ferritin AST ALT 134 H Lactate Dehydrogenase C-Reactive Protein Total Protein 4.7 L Albumin 2.2 L Triglycerides Arterial Blood Glucose 112 H Arterial Blood Ionized Calcium Urine Creatinine Urine Total Protein Vancomycin Trough Coronavirus (PCR) SARS-CoV-2 IgG Ab 08/05/20 08/05/20 08/05/20 08:30 08:30 11:19 WBC 16.5 H RBC 2.79 L Hgb 8.3 L Hct 26.1 L MCH MCHC RDW 16.7 H Plt Count Lymph % (Auto) Lymph # (Auto) Seg Neutrophils % Seg Neuts % (Manual) Lymphocytes % (Manual) 6.0 L Eosinophils % (Manual) Nucleated RBC % Seg Neutrophils # Seg Neutrophils # Man 10.1 H Lymphocytes # (Manual) 1.0 L Eosinophils # (Manual) PT INR D-Dimer ABG pH POC ABG pCO2 POC ABG pO2 ABG pO2 ABG HCO3 ABG O2 Saturation ABG Base Excess ABG Hemoglobin ABG Oxyhemoglobin ABG Sodium ABG Potassium ABG Chloride ABG Glucose Oxyhemoglobin Carboxyhemoglobin Sodium 149 H Potassium Chloride 112.9 H Carbon Dioxide 32 H D BUN 25 H Creatinine Glucose 184 H POC Glucose 185 H Lactic Acid Calcium Ferritin AST ALT 115 H Lactate Dehydrogenase C-Reactive Protein Total Protein 5.5 L Albumin 2.3 L Triglycerides Arterial Blood Glucose Arterial Blood Ionized Calcium Urine Creatinine Urine Total Protein Vancomycin Trough Coronavirus (PCR) SARS-CoV-2 IgG Ab 08/05/20 08/05/20 08/05/20 13:35 13:35 13:35 WBC RBC Hgb 7.7 L Hct 24.6 L MCH MCHC RDW Plt Count Lymph % (Auto) Lymph # (Auto) Seg Neutrophils % Seg Neuts % (Manual) Lymphocytes % (Manual) Eosinophils % (Manual) Nucleated RBC % Seg Neutrophils # Seg Neutrophils # Man Lymphocytes # (Manual) Eosinophils # (Manual) PT 15.4 H INR 1.22 H D-Dimer 4748.32 H ABG pH POC ABG pCO2 POC ABG pO2 ABG pO2 ABG HCO3 ABG O2 Saturation ABG Base Excess ABG Hemoglobin ABG Oxyhemoglobin ABG Sodium ABG Potassium ABG Chloride ABG Glucose Oxyhemoglobin Carboxyhemoglobin Sodium Potassium Chloride Carbon Dioxide BUN Creatinine Glucose POC Glucose Lactic Acid Calcium Ferritin AST ALT Lactate Dehydrogenase C-Reactive Protein 26.40 H Total Protein Albumin Triglycerides 337 H Arterial Blood Glucose Arterial Blood Ionized Calcium Urine Creatinine Urine Total Protein Vancomycin Trough Coronavirus (PCR) SARS-CoV-2 IgG Ab 08/05/20 08/05/20 08/05/20 16:56 20:07 23:29 WBC RBC Hgb Hct MCH MCHC RDW Plt Count Lymph % (Auto) Lymph # (Auto) Seg Neutrophils % Seg Neuts % (Manual) Lymphocytes % (Manual) Eosinophils % (Manual) Nucleated RBC % Seg Neutrophils # Seg Neutrophils # Man Lymphocytes # (Manual) Eosinophils # (Manual) PT INR D-Dimer ABG pH POC ABG pCO2 POC ABG pO2 ABG pO2 ABG HCO3 ABG O2 Saturation ABG Base Excess ABG Hemoglobin ABG Oxyhemoglobin ABG Sodium ABG Potassium ABG Chloride ABG Glucose Oxyhemoglobin Carboxyhemoglobin Sodium Potassium Chloride Carbon Dioxide BUN Creatinine Glucose POC Glucose 120 H 156 H Lactic Acid Calcium Ferritin AST ALT Lactate Dehydrogenase C-Reactive Protein Total Protein Albumin Triglycerides Arterial Blood Glucose Arterial Blood Ionized Calcium Urine Creatinine Urine Total Protein Vancomycin Trough 27.0 H Coronavirus (PCR) SARS-CoV-2 IgG Ab 08/06/20 08/06/20 08/06/20 04:00 04:00 05:32 WBC 12.6 H RBC 2.40 L Hgb 7.2 L Hct 22.4 L MCH MCHC RDW 16.9 H Plt Count Lymph % (Auto) Lymph # (Auto) Seg Neutrophils % Seg Neuts % (Manual) 86.0 H Lymphocytes % (Manual) 5.0 L Eosinophils % (Manual) Nucleated RBC % Seg Neutrophils # Seg Neutrophils # Man 10.8 H Lymphocytes # (Manual) 0.6 L Eosinophils # (Manual) PT INR D-Dimer ABG pH POC ABG pCO2 POC ABG pO2 ABG pO2 ABG HCO3 ABG O2 Saturation ABG Base Excess ABG Hemoglobin ABG Oxyhemoglobin ABG Sodium ABG Potassium ABG Chloride ABG Glucose Oxyhemoglobin Carboxyhemoglobin Sodium 147 H Potassium Chloride 112.5 H Carbon Dioxide BUN 27 H Creatinine Glucose 193 H POC Glucose 155 H Lactic Acid Calcium 8.3 L Ferritin AST ALT 77 H Lactate Dehydrogenase C-Reactive Protein Total Protein 5.0 L Albumin 2.2 L Triglycerides Arterial Blood Glucose Arterial Blood Ionized Calcium Urine Creatinine Urine Total Protein Vancomycin Trough Coronavirus (PCR) SARS-CoV-2 IgG Ab 08/06/20 08/06/20 08/06/20 09:31 11:55 Unknown WBC RBC Hgb Hct MCH MCHC RDW Plt Count Lymph % (Auto) Lymph # (Auto) Seg Neutrophils % Seg Neuts % (Manual) Lymphocytes % (Manual) Eosinophils % (Manual) Nucleated RBC % Seg Neutrophils # Seg Neutrophils # Man Lymphocytes # (Manual) Eosinophils # (Manual) PT INR D-Dimer ABG pH POC ABG pCO2 50.5 H POC ABG pO2 70.5 L ABG pO2 ABG HCO3 ABG O2 Saturation ABG Base Excess ABG Hemoglobin 8.3 L ABG Oxyhemoglobin ABG Sodium ABG Potassium ABG Chloride 113.0 H ABG Glucose 204 H Oxyhemoglobin Carboxyhemoglobin Sodium Potassium Chloride Carbon Dioxide BUN Creatinine Glucose POC Glucose 140 H 151 H Lactic Acid Calcium Ferritin AST ALT Lactate Dehydrogenase C-Reactive Protein Total Protein Albumin Triglycerides Arterial Blood Glucose 204 H Arterial Blood Ionized Calcium Urine Creatinine Urine Total Protein Vancomycin Trough Coronavirus (PCR) SARS-CoV-2 IgG Ab Allied health notes reviewed: nursing
--- NOTE | 2020-08-06 13:27 | Progress Note ---
Assessment and Plan Assessment and plan: -Severe COVID-19 PNA -On vent. Sedated -Completed steroids and remdesivir -ID following -- Acute hypoxic respiratory failure Mechanically ventilated Continue antibiotics for MRSA sputum. --- Ventilator associated pneumonia from MRSA and E. coli Continue cefepime and vancomycin ID following ---Sinus tachycardia Possible PE. D-dimer >4k Started on full dose anticoagulation Plan to do Cta chest when stable Monitor hemoglobin --Pneumothorax and subcutaneous emphysema Chest x-ray today shows improvement in pneumothorax and bilateral opacities. 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 -- Full code status brief History: 50-year-old female with a past medical history of asthma, hypertension, and lupus complains of generalized body weakness, fever and shortness of breath. Patient states the symptoms started right after she was discharged from [facility] on 07/05. She has associated wheezing, fever, cough and she has been using her inhalers with no significant effect. She also has associated diarrhea. Of note, she was hospitalized here in [facility] on 06/28 for asthma exacerbation and had a negative Covid test during the admission. She was treated and discharged. She presented to [facility] for further evaluation after discharge from here and over there, she was found to have positive COVID-19 test and she was placed on steroids and subsequently discharged on Eliquis prophylaxis for DVT. She states that she did not receive remdesivir during the admission. She was discharged from [facility] on 07/05. She went home and felt worse. She said that she passed out about 2 times. Due to persistent symptoms, she called EMS who brought her to [facility] for further evaluation. Daily course: 07/07. Patient seen and examined at bedside this morning. Patient is wheezing and slightly short of breath. Change steroids to Solu-Medrol 60 every 6. Added formoterol and budesonide. ID evaluation pending. Started patient on remdesivir as she is short of breath. 07/07: Placed on BIPAP this AM. Will need pulm evaluation. Solumedrol 60mg q6. STAT blood gas ordered. She will be transferred to [facility]. 07/08: Patient took oxygen off and attempts to go to the bathroom and subsequently became hypoxemic with sats down into the low 80s. Patient became weak short of breath. After that time patient had persistent coughing and cannot maintain sats until nonrebreather was placed. Patient is transferred to the ICU unit and monitored for respiratory failure possibly requiring intubation. 07/09: ID recommended for convalescent plasma, ordered. Patient intubated overnight. Continue to monitor clinically, scheduled lab, follow inflammatory markers 07/10: Wait for convalescent plasma transfusion, wean off from ventilator as tolerated 07/11: Called patient's daughter and updated. Continue to wean off vent as tolerated, continue tube feeding, monitor vital sign CBC BMP daily. 07/12: remains intubated and sedated. follow inflammatory markers - wean off vent as tolerated 07/13: wean off vent as tolerated, cxr in the am. reviewed vitals 07/14: remains intubated, has not received convalescent plasma yet. Reviewed vitals, tolerating tube feeding. Wean off vent per critical care as tolerated. 07/15: cont to provide supportive care, wean off vent as tolerated - difficult to wean off. 07/16: CXR findings improving, cont to wean off vent 07/17: Follow inflammatory markers, monitor off antibiotics. Wean off vent per pulmonary as tolerated 07/18: Wean off vent per pulmonary as tolerated,Follow inflammatory markers, monitor off antibiotics. 07/19: Wean off vent per pulmonary as tolerated,Follow inflammatory markers, monitor off antibiotics. SBT trial 07/20: Wean off vent as tolerated, continue supportive care, follow inflammatory markers 07/21: continue supportive care, follow inflammatory markers, wean off vent as tolerated 07/22: Continue to wean off from ventilator as tolerated per pulmonary recommendation, follow inflammatory markers. Repeat CBC BMP in the morning. We will repeat Covid test tomorrow to see if patient cleared the infection. 07/23. Continue to wean off from ventilator as tolerated per pulmonary recommendation, follow inflammatory markers. Currently AC mode, rate 16, tidal volume 450 with FiO2 75%vand PEEP 14 07/24/2020. Continue ventilatory support with AC mode, rate 16, tidal volume 450, FiO2 100% and PEEP of 16. Continue Brovana and Pulmicort. Continue IV steroids 40 mg IV every 8 hours. Anticoagulation with Lovenox 30 mg twice daily. Patient currently sedated with Versed and fentanyl. 07/25/2020. Continue ventilatory support with AC mode, rate 16, tidal volume 450, FiO2 75% and PEEP of 16. Continue Brovana and Pulmicort. Continue IV steroids 40 mg IV every 8 hours. Anticoagulation with Lovenox 30 mg twice daily. Patient currently sedated with Versed and fentanyl. Continue to wean per pulmonary recommendations. 07/26/2020. Continue ventilatory support with AC mode, rate 16, tidal volume 450, FiO2 85% and PEEP of 16. Continue Brovana and Pulmicort. Continue IV steroids 40 mg IV every 8 hours. Anticoagulation with Lovenox 30 mg twice daily. Patient currently sedated with Versed and fentanyl. Continue to wean per protocol. 07/27/2020. Continue ventilatory support with AC mode, rate 16, tidal volume 450, FiO2 100% and PEEP of 16. Patient with increased oxygen requirements the past couple of days. Continue Brovana and Pulmicort. Continue IV steroids 40 mg IV every 8 hours. Anticoagulation with Lovenox 30 mg twice daily. Patient currently sedated with Versed and fentanyl. Dose of Lasix given by pulmonary yesterday to achieve negative fluid balance. Follow-up serial chest x-ray 07/28/2020. Continue ventilatory support with AC mode, rate 16, tidal volume 450, FiO2 100% and PEEP of 16. Wean FiO2 per protocol. Continue Brovana and Pulmicort. Continue IV steroids 40 mg IV every 8 hours. Anticoagulation with Lovenox 30 mg twice daily. Patient currently sedated with Versed and fentanyl. 07/29/2020. Continue ventilatory support with AC mode, rate 16, tidal volume 450, FiO2 100% and PEEP of 16. Wean FiO2 per protocol. Continue Brovana and Pulmicort. Continue IV steroids 40 mg IV every 8 hours. Anticoagulation with Lovenox 30 mg twice daily. Wean sedation as tolerated. 07/30. Continue ventilatory support with AC mode, rate 16, tidal volume 450, FiO2 100% and PEEP of 16. Wean FiO2 per protocol. Continue Brovana and Pulmicort. Continue IV steroids 40 mg IV every 8 hours. Anticoagulation with Lovenox 30 mg twice daily. Wean sedation as tolerated. 07/31. Still ventilated. On sedatives. Renal function worse today. nephrology has been consulted. Started patient on IV hydration. BC - GN rods and staph aureus. She is on vancomycin. 08/01. Still ventilated. On sedatives. Renal function worse today. nephrology has been consulted. Started patient on IV hydration. BC - GN rods and staph aureus. She is on vancomycin. 08/02. Chest xray shows worsening pneumothorax. Chest tube in place. On vent and sedated 08/03. Continue ventilatory support with AC mode, rate 30, tidal volume 4000, FiO2 100% and PEEP of 16. Wean FiO2 per protocol. Continue Brovana and Pulmicort. Anticoagulation with Lovenox 30 mg twice daily. Wean sedation as tolerated. 08/04. Now has a left chest tube in place due to worsening pneumothorax. She also has subcutaneous emphysema. ID on board - on IV antibiotics-cefepime and vancomycin. ID following. 08/05. Patient is more tachycardic today with heart rate in 130s overnight. Chest x-ray shows improvement in pneumothoraces and bilateral opacities. Patient likely has a PE. Patient has been started on full anticoagulation. Still maintained on IV antibiotics. Continue ventilatory support. 08/06/2020; patient's Covid positive, pneumothorax on chest tube. Patient is likely has PE and started on heparin drip. Patient is intubated and sedated and pulmonary is following. 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 The aggregate critical care time was [32] minutes. This time is in addition to time spent performing reported procedures but includes the following: [x] Data Review and interpretation [x] Patient assessment and monitoring of vital signs [x] Documentation [x] Medication orders and management History Interval history: Patient was seen and evaluated this morning patient is intubated and on mechanical ventilation Hospitalist Physical - Physical exam Narrative exam: Patient is intubated and on mechanical ventilation, FiO2 60%, sedated The patient appeared well nourished and normally developed. Vital signs as documented. Head exam is unremarkable. No scleral icterus . Neck is without jugular venous distension, thyromegaly, or carotid bruits. Lungs are clear to auscultation. Cardiac exam reveals regular rate and Rhythm. Abdominal exam reveals normal bowel sounds, nontender, no organomegaly. Extremities are nonedematous and both femoral and pedal pulses are normal. HOT MILL OPERATOR: Sedated - Constitutional Vitals: Temp Pulse Resp BP Pulse Ox 98.1 F 91 H 30 H 156/76 99 08/06/20 12:00 08/06/20 12:46 08/06/20 12:46 08/06/20 12:46 08/06/20 12:46 General appearance: Present: no acute distress, well-nourished Results - Labs CBC & Chem 7: 08/06/20 04:00 08/06/20 04:00 Labs: Laboratory Last Values WBC 12.6 K/mm3 (4.5-11.0) H 08/06/20 04:00 RBC 2.40 M/mm3 (3.65-5.03) L 08/06/20 04:00 Hgb 7.2 gm/dl (10.1-14.3) L 08/06/20 04:00 Hct 22.4 % (30.3-42.9) L 08/06/20 04:00 MCV 93 fl (79-97) 08/06/20 04:00 MCH 30 pg (28-32) 08/06/20 04:00 MCHC 32 % (30-34) 08/06/20 04:00 RDW 16.9 % (13.2-15.2) H 08/06/20 04:00 Plt Count 194 K/mm3 (140-440) 08/06/20 04:00 Lymph % (Auto) Meat Passer 08/02/20 06:37 [place] % (Auto) Meat Passer 08/02/20 06:37 Eos % (Auto) Meat Passer 08/02/20 06:37 Baso % (Auto) Meat Passer 08/02/20 06:37 Lymph # (Auto) Meat Passer 08/02/20 06:37 [place] # (Auto) Meat Passer 08/02/20 06:37 Eos # (Auto) Meat Passer 08/02/20 06:37 Baso # (Auto) Meat Passer 08/02/20 06:37 Add Manual Diff Complete 08/06/20 04:00 Total Counted 100 08/06/20 04:00 Seg Neutrophils % Meat Passer 08/06/20 04:00 Seg Neuts % (Manual) 86.0 % (40.0-70.0) H 08/06/20 04:00 Band Neutrophils % 4.0 % 08/06/20 04:00 Lymphocytes % (Manual) 5.0 % (13.4-35.0) L 08/06/20 04:00 Reactive Lymphs % (Man) 0 % 08/06/20 04:00 Monocytes % (Manual) 2.0 % (0.0-7.3) 08/06/20 04:00 Eosinophils % (Manual) 0 % (0.0-4.3) 08/06/20 04:00 Basophils % (Manual) 0 % (0.0-1.8) 08/06/20 04:00 Metamyelocytes % 3.0 % 08/06/20 04:00 Myelocytes % 0 % 08/06/20 04:00 Promyelocytes % 0 % 08/06/20 04:00 Blast Cells % 0 % 08/06/20 04:00 Nucleated RBC % Not Reportable 08/06/20 04:00 Seg Neutrophils # Meat Passer 08/02/20 06:37 Seg Neutrophils # Man 10.8 K/mm3 (1.8-7.7) H 08/06/20 04:00 Band Neutrophils # 0.5 K/mm3 08/06/20 04:00 Lymphocytes # (Manual) 0.6 K/mm3 (1.2-5.4) L 08/06/20 04:00 Abs React Lymphs (Man) 0.0 K/mm3 08/06/20 04:00 Monocytes # (Manual) 0.3 K/mm3 (0.0-0.8) 08/06/20 04:00 Eosinophils # (Manual) 0.0 K/mm3 (0.0-0.4) 08/06/20 04:00 Basophils # (Manual) 0.0 K/mm3 (0.0-0.1) 08/06/20 04:00 Metamyelocytes # 0.4 K/mm3 08/06/20 04:00 Myelocytes # 0.0 K/mm3 08/06/20 04:00 Promyelocytes # 0.0 K/mm3 08/06/20 04:00 Blast Cells # 0.0 K/mm3 08/06/20 04:00 Pathologist Review 08/03/20 04:49 WBC Morphology Not Reportable 08/06/20 04:00 Hypersegmented Neuts Not Reportable 08/06/20 04:00 Hyposegmented Neuts Not Reportable 08/06/20 04:00 Hypogranular Neuts Not Reportable 08/06/20 04:00 Smudge Cells Not Reportable 08/06/20 04:00 Toxic Granulation Not Reportable 08/06/20 04:00 Toxic Vacuolation Not Reportable 08/06/20 04:00 Dohle Bodies Not Reportable 08/06/20 04:00 Pelger-Huet Anomaly Not Reportable 08/06/20 04:00 Savanna Rods Not Reportable 08/06/20 04:00 Platelet Estimate Consistent w auto 08/06/20 04:00 Clumped Platelets Not Reportable 08/06/20 04:00 Plt Clumps, EDTA Not Reportable 08/06/20 04:00 Large Platelets Not Reportable 08/06/20 04:00 Giant Platelets Not Reportable 08/06/20 04:00 Platelet Satelliting Not Reportable 08/06/20 04:00 Plt Morphology Comment Not Reportable 08/06/20 04:00 RBC Morphology Not Reportable 08/06/20 04:00 Dimorphic RBCs Not Reportable 08/06/20 04:00 Polychromasia Few 08/06/20 04:00 Hypochromasia 1+ 08/06/20 04:00 Poikilocytosis Not Reportable 08/06/20 04:00 Anisocytosis Few 08/06/20 04:00 Microcytosis Not Reportable 08/06/20 04:00 Macrocytosis Not Reportable 08/06/20 04:00 Spherocytes Not Reportable 08/06/20 04:00 Pappenheimer Bodies Not Reportable 08/06/20 04:00 Sickle Cells Not Reportable 08/06/20 04:00 Target Cells Not Reportable 08/06/20 04:00 Tear Drop Cells Not Reportable 08/06/20 04:00 Ovalocytes Not Reportable 08/06/20 04:00 Helmet Cells Not Reportable 08/06/20 04:00 Raza-Livermore Bodies Not Reportable 08/06/20 04:00 [place] Rings Not Reportable 08/06/20 04:00 Kristan Cells Not Reportable 08/06/20 04:00 Bite Cells Not Reportable 08/06/20 04:00 Crenated Cell Not Reportable 08/06/20 04:00 Elliptocytes Not Reportable 08/06/20 04:00 Acanthocytes (Spur) Not Reportable 08/06/20 04:00 Rouleaux Not Reportable 08/06/20 04:00 Hemoglobin C Crystals Not Reportable 08/06/20 04:00 Schistocytes Rare 08/06/20 04:00 Malaria parasites Not Reportable 08/06/20 04:00 Junaid Bodies Not Reportable 08/06/20 04:00 Hem Pathologist Commnt No 08/06/20 04:00 PT 15.4 Sec. (12.2-14.9) H 08/05/20 13:35 INR 1.22 (0.87-1.13) H 08/05/20 13:35 APTT 30.5 Sec. (24.2-36.6) 08/05/20 13:35 D-Dimer 4748.32 ng/mlDDU (0-234) H 08/05/20 13:35 Heparin Anti-Xa Level 0.47 U.I./ml (0.3-0.7) 08/06/20 10:00 ABG pH 7.336 (7.320-7.450) 08/06/20 Unknown POC ABG pCO2 50.5 mmHg (32.0-48.0) H 08/06/20 Unknown ABG pCO2 81.7 mm Hg 07/28/20 04:15 POC ABG pO2 70.5 mmHg (83-108) L 08/06/20 Unknown ABG pO2 130.3 mm Hg (80.0-90.0) H 07/28/20 04:15 POC ABG HCO3 26.4 08/06/20 Unknown ABG HCO3 40.9 mmol/L (20.0-26.0) H 07/28/20 04:15 ABG O2 Saturation 98.1 % (95.0-99.0) 07/28/20 04:15 ABG O2 Content 8.2 (0.0-44) 07/28/20 04:15 POC ABG Base Excess 0.3 08/06/20 Unknown ABG Base Excess 13.5 mmol/L (-2.0-3.0) H 07/28/20 04:15 ABG Hemoglobin 8.3 (12.0-17.5) L 08/06/20 Unknown ABG Oxyhemoglobin 98.4 (94-98) H 07/31/20 21:26 ABG Carboxyhemoglobin 1.7 % (0.0-5.0) 07/28/20 04:15 ABG Methemoglobin 0.3 (0.0-1.5) 07/31/20 21:26 ABG Sodium 143.7 mmol/L (136.0-145.0) 08/06/20 Unknown ABG Potassium 4.0 mmol/L (3.40-4.50) 08/06/20 Unknown ABG Chloride 113.0 mmol/L (98-107) H 08/06/20 Unknown ABG Glucose 204 mg/dL (65-95) H 08/06/20 Unknown Oxyhemoglobin 95.8 % (95.0-99.0) 07/28/20 04:15 Carboxyhemoglobin 0.4 (0.5-1.5) L 07/31/20 21:26 FiO2 70 08/06/20 Unknown Sodium 147 mmol/L (137-145) H 08/06/20 04:00 Potassium 4.1 mmol/L (3.6-5.0) 08/06/20 04:00 Chloride 112.5 mmol/L (98-107) H 08/06/20 04:00 Carbon Dioxide 26 mmol/L (22-30) 08/06/20 04:00 Anion Gap 13 mmol/L 08/06/20 04:00 BUN 27 mg/dL (7-17) H 08/06/20 04:00 Creatinine 0.6 mg/dL (0.6-1.2) 08/06/20 04:00 Estimated GFR > 60 ml/min 08/06/20 04:00 BUN/Creatinine Ratio 45 % 08/06/20 04:00 Glucose 193 mg/dL (65-100) H 08/06/20 04:00 POC Glucose 151 mg/dL (70-105) H 08/06/20 11:55 Lactic Acid 1.80 mmol/L (0.7-2.0) 07/31/20 14:14 Calcium 8.3 mg/dL (8.4-10.2) L 08/06/20 04:00 Phosphorus 3.20 mg/dL (2.5-4.5) 07/08/20 16:13 Magnesium 2.20 mg/dL (1.7-2.3) 07/08/20 16:13 Ferritin 964.8 ng/mL (10.0-200.0) H 07/31/20 14:14 Total Bilirubin 0.20 mg/dL (0.1-1.2) 08/06/20 04:00 AST 15 units/L (5-40) 08/06/20 04:00 ALT 77 units/L (7-56) H 08/06/20 04:00 Alkaline Phosphatase 70 units/L (35-129) 08/06/20 04:00 Lactate Dehydrogenase 585 units/L (91-180) H 07/31/20 14:14 C-Reactive Protein 26.40 mg/dL (0.00-1.30) H 08/05/20 13:35 Total Protein 5.0 g/dL (6.3-8.2) L 08/06/20 04:00 Albumin 2.2 g/dL (3.9-5) L 08/06/20 04:00 Albumin/Globulin Ratio 0.8 % 08/06/20 04:00 Triglycerides 337 mg/dL (2-149) H 08/05/20 13:35 Procalcitonin 1.39 ng/mL (<0.15) 08/05/20 13:35 Arterial Blood Glucose 204 mg/dL (65-95) H 08/06/20 Unknown Arterial Blood Ionized Calcium 4.8 mg/dL (4.6-5.3) 08/06/20 Unknown Urine Color Yellow (Yellow) 07/11/20 09:30 Urine Turbidity Clear (Clear) 07/11/20 09:30 Urine pH 5.0 (5.0-7.0) 07/11/20 09:30 Ur Specific [place] 1.028 (1.003-1.030) 07/11/20 09:30 Urine Protein <15 mg/dl mg/dL (Negative) 07/11/20 09:30 Urine Glucose (UA) Neg mg/dL (Negative) 07/11/20 09:30 Urine Ketones Neg mg/dL (Negative) 07/11/20 09:30 Urine Blood Neg (Negative) 07/11/20 09:30 Urine Nitrite Neg (Negative) 07/11/20 09:30 Urine Bilirubin Neg (Negative) 07/11/20 09:30 Urine Urobilinogen 2.0 mg/dL (<2.0) 07/11/20 09:30 Ur Leukocyte Esterase Neg (Negative) 07/11/20 09:30 Urine WBC (Auto) 1.0 /HPF (0.0-6.0) 07/11/20 09:30 Urine RBC (Auto) 1.0 /HPF (0.0-6.0) 07/11/20 09:30 U Epithel Cells (Auto) 1.0 /HPF (0-13.0) 07/11/20 09:30 Urine Mucus Few /HPF 07/11/20 09:30 Urine Creatinine 89.2 mg/dL (0.1-20.0) H 07/31/20 16:00 Urine Sodium 26 mmol/L 07/31/20 16:00 Urine Total Protein 108 mg/dL (5-11.8) H 07/31/20 16:00 Vancomycin Trough 27.0 ug/mL (5.0-20.0) H 08/05/20 20:07 Random Vancomycin 7.9 ug/mL (0-40.0) 08/02/20 06:37 Coronavirus (PCR) Positive (Negative) A 07/23/20 Unknown SARS-CoV-2 IgG Ab Reactive (NonReactive) A 07/15/20 14:30 Blood Type O POSITIVE 07/09/20 15:30 Antibody Screen Negative 07/09/20 15:30 - Diagnostic Impressions Diagnostic Impressions: Echocardiogram 07/19/20 13:13 Transthoracic Echocardiogram Indication: CHF BP: 106/58 Conclusions *The left ventricular systolic function is within normal limits. There are no wall motion abnormalities observed. *The estimated ejection fraction is 60-65%. *Normal left ventricular diastolic filling is observed. Findings Procedure Info: The study quality is fair. Left Ventricle: The left ventricular chamber size, wall thickness and systolic function are within normal limits. There are no wall motion abnormalities observed. Ejection fraction is normal. The estimated ejection fraction is 60-65%. Normal left ventricular diastolic filling is observed. Left Atrium: The left atrium is normal in size with no visual thrombus identified. Right Ventricle: The right ventricular chamber size and systolic function are within normal limits. Right Atrium: The right atrium appears normal. Aortic Valve: The aortic valve is trileaflet. The leaflets are thin with normal excursion. There is no aortic stenosis or regurgitation present. Mitral Valve: The mitral valve leaflets are mildly thickened. There is trace of mitral regurgitation. There is no evidence of mitral stenosis. Tricuspid Valve: The tricuspid valve leaflets are normal. There is trace tricuspid regurgitation. The right ventricular systolic pressure is calculated at 14 mmHg. There is no tricuspid stenosis. Pulmonic Valve: The pulmonic valve appears normal. There is mild pulmonic regurgitation. There is no pulmonic stenosis. Pericardium: The pericardium appears normal. Aorta: The aorta appears normal. Pulmonary Artery: The main pulmonary artery appears normal. Venous: The inferior vena cava appears normal in size. There is a greater than 50% respiratory change in the inferior vena cava dimension. Measurements Chambers 2D Name Value Normal Range IVSd (2D) 1.08 cm (0.6 - 1.1) LVPWd (2D) 0.91 cm (0.6 - 1.1) LVIDd (2D) 4.61 cm (3.7 - 5.6) LVIDs (2D) 3.12 cm (2 - 3.8) LV FS (2D) 32.38 % - EF Teichholz (2D) 60.72 % - Ao root diameter (2D) 3.01 cm (2 - 3.7) Volumes/Mass Name Value Normal Range LA ESV SP 4CH (A/L) 57.18 ml - LA ESV SP 2CH (A/L) 62.63 ml - LA ESV BP (A/L) 60.68 ml - LA ESV BP (A/L) index 28.22 ml/m2 - LA ESV SP 4CH (MOD) 51.17 ml - LA ESV SP 2CH (MOD) 57.8 ml - LA ESV BP (MOD) 54.73 ml - LA ESV BP (MOD) index 25.45 ml/m2 - LV EDV SP 4CH (MOD) 115.34 ml - LV ESV SP 4CH (MOD) 43.26 ml - EF SP 4CH (MOD) 62.5 % - LV EDV SP 2CH (MOD) 43.71 ml - LV ESV SP 2CH (MOD) 17.14 ml - EF SP 2CH (MOD) 60.79 % - LV EDV BP 73.15 ml - LV ESV BP 27.92 ml - BP EF (MOD) 61.83 % - Diastolic/Systolic Function Name Value Normal Range MV E-wave Vmax 0.88 m/sec - MV deceleration time 157.66 msec - MV A-wave Vmax 0.91 m/sec - MV E:A ratio 0.96 ratio - Aortic Valve Name Value Normal Range AV Vmax 1.54 m/sec - AV VTI 31.46 cm - AV peak gradient 9.51 mmHg - AV mean gradient 5.1 mmHg - LVOT diameter 1.95 cm - LVOT Vmax 1.21 m/sec - LVOT VTI 27.59 cm - LVOT peak gradient 5.83 mmHg - LVOT mean gradient 3.3 mmHg - SV LVOT 82.76 ml - SMITH (continuity Vmax) 2.35 cm2 - SMITH (continuity VTI) 2.63 cm2 - Ascending Ao 2.94 cm - Tricuspid Valve Name Value Normal Range TV E-wave Vmax 0.49 m/sec - TR Vmax 1.72 m/sec - TR peak gradient 11.86 mmHg - RAP 3 mmHg - RVSP 14 mmHg - IVC diameter 1.91 cm (1.2 - 2.3) Pulmonic Valve/Qp:Qs Name Value Normal Range PV Vmax 0.94 m/sec - PV peak gradient 3.54 mmHg - CT end-diastolic Vmax 0.54 m/sec - RVOT Vmax 0.68 m/sec - RVOT VTI 13.18 cm - RVOT peak gradient 1.82 mmHg - PV acceleration time 117.98 msec - Te[place]ada/IV: Voiding Method Indwelling Catheter IV Catheter Type [Left Upper PICC Line arm] IV Catheter Type [Right INT / Saline Lock Forearm] IV Catheter Type [Left Wrist] INT / Saline Lock IV Catheter Type [Left Hand] Peripheral IV Active Medications - Current Medications Current Medications: Generic Name Dose Route Start Last Admin Trade Name Freq PRN Reason Stop Dose Admin Acetaminophen 650 mg 07/06/20 13:39 07/27/20 18:34 Tylenol PO 650 mg Q4H PRN Administration Pain MILD(1-3)/Fever >100.5/WILLETT Albuterol/Ipratropium 1 ampul 08/05/20 11:33 Duoneb *Not For Prn Use* IH TIDRT PRN Overdose Alprazolam 0.5 mg 07/07/20 12:28 07/27/20 03:15 Xanax PO 0.5 mg Q8H PRN Administration Anxiety Lipase/Protease/Amylase 1 each 07/08/20 14:50 Cayla Price 10,500 Unit FEEDTUBE PRN PRN For Clogged Feeding Tube Arformoterol Tartrate 15 mcg 07/07/20 09:15 08/06/20 07:34 Brovana Nebu IH 15 mcg Q12HRT ROMMEL Administration Ascorbic Acid 500 mg 07/08/20 22:00 08/06/20 09:47 Vitamin C PO 500 mg BID ROMMEL Administration Aspirin 81 mg 07/06/20 14:00 08/06/20 09:46 Baby Aspirin PO 81 mg QDAY ROMMEL Administration Budesonide 0.5 mg 07/07/20 09:15 08/06/20 07:34 Pulmicort IH 0.5 mg Q12HRT ROMMEL Administration Chlordiazepoxide HCl 75 mg 07/30/20 13:00 08/06/20 06:16 Librium PO 75 mg Q8H ROMMEL Administration Dextrose 50 ml 07/12/20 16:58 D50w (25gm) Syringe IV Q30MIN PRN Hypoglycemia Protocol Docusate Sodium 100 mg 07/16/20 22:00 08/06/20 11:29 Colace PO Not Given BID [facility] Fentanyl 50 mcg 07/08/20 13:16 07/29/20 15:45 Sublimaze IV 50 mcg Q10MIN PRN Administration ANALGESIA Gabapentin 600 mg 07/25/20 14:00 08/06/20 06:14 Gabapentin PO 600 mg Q8HR ROMMEL Administration Hydrophilic Ointment 1 applic 07/08/20 13:16 07/22/20 23:01 Vaseline Lip Therapy TP 1 applic Q2HR PRN Administration Dry Lips Hydroxychloroquine Sulfate 200 mg 07/07/20 10:00 08/06/20 09:46 Plaquenil PO 200 mg QDAY ROMMEL Administration Fentanyl Citrate 2,000 mcg in 100 mls @ 4.825 mls/hr 07/08/20 14:00 08/06/20 11:28 Fentanyl Drip Premix IV 4 mcg/kg/hr TITR ROMMEL 19.3 mls/hr Administration Protocol 1 MCG/KG/HR Midazolam HCl 100 mg/ Sodium 100 mls @ 2 mls/hr 07/08/20 15:00 08/06/20 01:21 Chloride IV 6 mg/hr TITR ROMMEL 6 mls/hr Administration Protocol 2 MG/HR Sodium Chloride 500 mls @ 10 mls/hr 07/15/20 15:00 Nacl 0.9% 500 Ml IV DIRECT ROMMEL Norepinephrine 4 mg in 250 mls @ 7.5 mls/hr 07/27/20 05:00 Levophed Drip 4 Mg/Ns 250 Ml IV TITR ROMMEL Protocol 2 MCG/MIN Vasopressin 20 unit/ Sodium 101 mls @ 9.09 mls/hr 07/30/20 13:00 08/04/20 14:25 Chloride IV 0 units/min TITR ROMMEL 0 mls/hr Titration Protocol 0.03 UNITS/MIN Phenylephrine HCl 100 mg/ 100 mls @ 3 mls/hr 07/30/20 15:00 08/04/20 10:08 Sodium Chloride IV 0 mcg/min TITR ROMMEL 0 mls/hr Titration Protocol 50 MCG/MIN Dopamine HCl/Dextrose 800 mg in 250 mls @ 3.679 mls/hr 07/31/20 22:00 Intropin Drip 800 Mg/D5w 250 Ml IV TITR ROMMEL Protocol 2 MCG/KG/MIN Ceftriaxone Sodium 2 gm in 100 mls @ 200 mls/hr 08/02/20 10:00 08/06/20 09:48 Rocephin/Ns 2 Gm/100 Ml IV 08/07/20 23:59 200 mls/hr Q24HR ROMMEL Administration Protocol Heparin Sodium/Sodium Chloride 25,000 unit in 500 mls @ 30 mls/hr 08/05/20 13 :00 08/06/20 11:19 Heparin/ 0.45% Nacl-25,000 Unit/500 Ml IV 1,500 units/hr TITR ROMMEL 30 mls/hr Titration Protocol 1,500 UNITS/HR Propofol 500 mg in 50 mls @ 2.946 mls/hr 08/05/20 13:00 08/06/20 02:05 Propofol IV 5 mcg/kg/min TITR ROMMEL 2.946 mls/hr Titration Protocol 5 MCG/KG/MIN Vancomycin HCl 1,500 mg/ 530 mls @ 333.333 mls/hr 08/06/20 22:00 Sodium Chloride IV 08/07/20 23:36 Q24H ROMMEL Insulin Glargine 16 units 08/04/20 08:26 08/06/20 09:47 Lantus SUB-Q 16 units Q24H ROMMEL Administration Insulin Human Regular 0 unit 08/01/20 00:00 08/06/20 06:16 Humulin R SUB-Q 2 unit Q6HR ROMMEL Administration Protocol Lansoprazole 30 mg 07/10/20 10:00 08/06/20 09:47 Prevacid Solutab FEEDTUBE 30 mg QDAY ROMMEL Administration Methylprednisolone Sodium Succinate 40 mg 07/22/20 14:00 08/06/20 06:16 Solu-Medrol IV 40 mg Q8H ROMMEL Administration Metoclopramide HCl 5 mg 08/05/20 12:00 08/06/20 11:28 Reglan IV 5 mg Q6HR ROMMEL Administration Multi-Ingred Cream/Lotion/Oil/Oint 1 applic 07/08/20 13:16 Artificial Tears Ophth Oint OU Q4HR PRN Dry Eye(s) Ondansetron HCl 4 mg 07/06/20 13:39 07/08/20 10:44 Zofran IV 4 mg Q8H PRN Administration Nausea And Vomiting Polyethylene Glycol 17 gm 07/29/20 12:00 08/06/20 11:29 Miralax 3350 PO Not Given DAILY ROMMEL Pseudoephedrine/Acetam/Chlorphenir 10 ml 07/07/20 01:17 07/08/20 08:30 Robitussin Ac PO 10 ml Q4H PRN Administration Cough Quetiapine Fumarate 200 mg 07/25/20 22:00 08/06/20 09:47 Seroquel PO 200 mg BID ROMMEL Administration Quetiapine Fumarate 100 mg 07/25/20 22:00 08/06/20 09:47 Seroquel PO 100 mg BID ROMMEL Administration Simple Syrup 15 ml 07/08/20 14:50 Simple Syrup FEEDTUBE PRN PRN Hypoglycemia Simple Syrup 30 ml 07/08/20 14:50 Simple Syrup FEEDTUBE PRN PRN Hypoglycemia Sodium Bicarbonate 325 mg 07/08/20 14:50 Sodium Bicarbonate FEEDTUBE PRN PRN For Clogged Feeding Tube Sodium Chloride 10 ml 07/06/20 14:00 08/06/20 09:50 Sodium Chloride Flush Syringe 10 Ml IV 10 ml BID ROMMEL Administration Sodium Chloride 10 ml 07/06/20 13:39 07/26/20 06:31 Sodium Chloride Flush Syringe 10 Ml IV 10 ml PRN PRN Administration LINE FLUSH Venlafaxine HCl 37.5 mg 07/07/20 10:00 08/06/20 09:47 Effexor PO 37.5 mg DAILY ROMMEL Administration Zinc Sulfate 220 mg 07/08/20 22:00 08/06/20 09:47 Zinc Sulfate PO 220 mg BID ROMMEL Administration Nutrition/Malnutrition Assess - Dietary Evaluation Nutrition/Malnutrition Findings: Nutrition Notes Start: 07/08/20 14:02 Freq: Status: Active Protocol: Document 08/05/20 14:32 (Rec: 08/05/20 14:42 [id number]) Nutrition Notes Initial or Follow up Reassessment Current Diagnosis Acute Kidney Injury, Hypertension,Heart Failure Other Pertinent Diagnosis Acute respiratory failure, COVID(+), GERD, Lupus, Anemia Current Diet Vital AF 1.2 at 55 mL/hr (goal rate) Labs/Tests Na 149 BUN 32 BG 184 Pertinent Medications Diprivan Fentanyl Solu-medrol Humulin Vitamin C Height 5 ft 5 in Weight 112.1 kg [place] Body Weight (kg) 56.81 BMI 41.1 Weight change and time frame Wt change noted Subjective/Other Information FU for TF tolerance and BM. Pt has BM yesterday. Pt has been having increased gastric residuals. TF currently at 35 ml/hr. Per RN, pt will be on LIS for 4 hours later today and pt having gas issues in stomach. Percent of energy/protein needs met: 53%/55% Burn Absent Trauma Absent GI Symptoms None Current % PO Negligible Minimum of two criteria No physical signs of malnutrition #1 Nutrition Diagnosis Inadequate oral intake Diagnosis Progress(for reassessment Continues documentation) Is patient on ventilator? Yes Is Patient Ambulatory and/or Out of Bed No REE-([facility]-confined to bed) 2105.508 Kcal/Kg value to use for calculation 17 Approximate Energy Requirements Using 1906 kcal/Kg Calculation Used for Recommendations Kcal/kg Additional Notes Pro: greater than 114 g (>2 g/ kg IBW) Fluid: 1ml/kcal or per MD Nutrition Intervention Change Diet Order: Continue TF as tolerated Nutrition Support: Vital AF at 55 ml/hr Flush 75 ml q4h. Kcal 1,584 Protein (gm) 99 Fluid (mL) 1,070 Goal #1 TF rate advancement as tolerated Goal #2 Meet at least 80% of protein and energy needs via TF Anticipated Discharge Needs: Cannot determine at this time Follow-Up By: 08/07/20 Additional Comments FU for TF tolerance/ advancement
--- NOTE | 2020-08-06 16:32 | Progress Note ---
Assessment and Plan 50 yo F with 1. b/l PTX with subcutaneous emphysema s/p bilateral chest tubes 2. COVID PNA 3. VDRF 4. Septic shock Pt stable. Off pressors. PEEP 13 from 16 and FIO2 60% from 70% CXR 08/06/20 - no change. chest tubes in place Plan: 1. Maintain all chest tubes @ -[id number] suction via pleurevac 2. Air leaks improving. Monitor air leaks from right chest tubes - may take time to resolve as patient is on high PEEP. 3. vent management per ICU team 4. Daily CXR Thank you, please call with any questions or concerns. Evaluation and treatment of this patient was during the time of the national and state emergency arising from COVID19 coronavirus pandemic. Treatment and procedures performed meet the current and available best practice and guidelines for patient during the COVID pandemic. Subjective Date of service: 08/06/20 Narrative: Pt seen and examined. NO acute events noted. Objective Vital Signs - 12hr 08/06/20 08/06/20 08/06/20 04:46 05:00 05:16 Temperature Pulse Rate 86 82 93 H Pulse Rate [ Bilateral Throughout] Pulse Rate [ From Monitor] Respiratory 24 30 H 19 Rate Respiratory Rate [Bilateral Throughout] Blood Pressure 110/67 123/69 123/69 O2 Sat by Pulse 100 100 Oximetry 08/06/20 08/06/20 08/06/20 05:30 05:45 06:00 Temperature Pulse Rate 96 H 93 H 87 Pulse Rate [ Bilateral Throughout] Pulse Rate [ From Monitor] Respiratory 15 12 21 Rate Respiratory Rate [Bilateral Throughout] Blood Pressure 130/61 106/56 115/61 O2 Sat by Pulse 100 100 100 Oximetry 08/06/20 08/06/20 08/06/20 06:16 06:30 06:46 Temperature Pulse Rate 86 81 82 Pulse Rate [ Bilateral Throughout] Pulse Rate [ From Monitor] Respiratory 30 H 30 H 28 H Rate Respiratory Rate [Bilateral Throughout] Blood Pressure 119/67 131/71 119/67 O2 Sat by Pulse 100 100 100 Oximetry 08/06/20 08/06/20 08/06/20 07:00 07:16 07:29 Temperature Pulse Rate 80 81 80 Pulse Rate [ Bilateral Throughout] Pulse Rate [ From Monitor] Respiratory 30 H 30 H Rate Respiratory Rate [Bilateral Throughout] Blood Pressure 121/68 129/68 129/67 O2 Sat by Pulse 100 100 99 Oximetry 08/06/20 08/06/20 08/06/20 07:30 07:46 08:00 Temperature 97.3 F L Pulse Rate 81 80 83 Pulse Rate [ Bilateral Throughout] Pulse Rate [ 113 H From Monitor] Respiratory 30 H 25 H 17 Rate Respiratory Rate [Bilateral Throughout] Blood Pressure 129/67 135/71 133/68 O2 Sat by Pulse 100 99 99 Oximetry 08/06/20 08/06/20 08/06/20 08:05 08:16 08:30 Temperature Pulse Rate 82 82 Pulse Rate [ 82 Bilateral Throughout] Pulse Rate [ From Monitor] Respiratory 17 30 H Rate Respiratory 31 H Rate [Bilateral Throughout] Blood Pressure 124/68 127/66 O2 Sat by Pulse 100 100 Oximetry 08/06/20 08/06/20 08/06/20 08:46 09:00 09:16 Temperature Pulse Rate 84 86 84 Pulse Rate [ Bilateral Throughout] Pulse Rate [ From Monitor] Respiratory 31 H 28 H 30 H Rate Respiratory Rate [Bilateral Throughout] Blood Pressure 126/67 127/66 125/66 O2 Sat by Pulse 99 100 100 Oximetry 08/06/20 08/06/20 08/06/20 09:30 09:46 10:00 Temperature Pulse Rate 86 88 93 H Pulse Rate [ Bilateral Throughout] Pulse Rate [ From Monitor] Respiratory 30 H 30 H 30 H Rate Respiratory Rate [Bilateral Throughout] Blood Pressure 129/69 127/66 120/63 O2 Sat by Pulse 99 100 99 Oximetry 08/06/20 08/06/20 08/06/20 10:16 10:30 10:46 Temperature Pulse Rate 98 H 100 H 104 H Pulse Rate [ Bilateral Throughout] Pulse Rate [ From Monitor] Respiratory 18 10 L 10 L Rate Respiratory Rate [Bilateral Throughout] Blood Pressure 125/65 114/58 122/56 O2 Sat by Pulse 99 100 97 Oximetry 08/06/20 08/06/20 08/06/20 11:00 11:16 11:30 Temperature Pulse Rate 103 H 101 H 101 H Pulse Rate [ Bilateral Throughout] Pulse Rate [ From Monitor] Respiratory 9 L 10 L 10 L Rate Respiratory Rate [Bilateral Throughout] Blood Pressure 113/56 125/65 123/60 O2 Sat by Pulse 98 98 98 Oximetry 08/06/20 08/06/20 08/06/20 11:45 12:00 12:10 Temperature 98.1 F Pulse Rate 96 H 96 H 94 H Pulse Rate [ Bilateral Throughout] Pulse Rate [ 113 H From Monitor] Respiratory 10 L 13 Rate Respiratory Rate [Bilateral Throughout] Blood Pressure 153/79 173/82 173/82 O2 Sat by Pulse 93 94 95 Oximetry 08/06/20 08/06/20 08/06/20 12:16 12:30 12:46 Temperature Pulse Rate 101 H 92 H 91 H Pulse Rate [ Bilateral Throughout] Pulse Rate [ From Monitor] Respiratory 22 30 H 30 H Rate Respiratory Rate [Bilateral Throughout] Blood Pressure 152/77 164/80 156/76 O2 Sat by Pulse 95 97 99 Oximetry 08/06/20 08/06/20 08/06/20 13:00 13:16 13:30 Temperature Pulse Rate 91 H 88 87 Pulse Rate [ Bilateral Throughout] Pulse Rate [ From Monitor] Respiratory 29 H 30 H 30 H Rate Respiratory Rate [Bilateral Throughout] Blood Pressure 149/69 136/67 133/68 O2 Sat by Pulse 100 100 100 Oximetry 08/06/20 08/06/20 08/06/20 13:46 14:00 14:16 Temperature Pulse Rate 88 86 85 Pulse Rate [ Bilateral Throughout] Pulse Rate [ From Monitor] Respiratory 30 H 30 H 30 H Rate Respiratory Rate [Bilateral Throughout] Blood Pressure 131/67 143/64 134/69 O2 Sat by Pulse 100 100 100 Oximetry 08/06/20 08/06/20 08/06/20 14:30 14:46 15:00 Temperature Pulse Rate 84 86 86 Pulse Rate [ Bilateral Throughout] Pulse Rate [ From Monitor] Respiratory 30 H 14 17 Rate Respiratory Rate [Bilateral Throughout] Blood Pressure 144/68 156/71 142/71 O2 Sat by Pulse 100 99 98 Oximetry 08/06/20 08/06/20 08/06/20 15:16 15:30 15:46 Temperature Pulse Rate 83 80 83 Pulse Rate [ Bilateral Throughout] Pulse Rate [ From Monitor] Respiratory 13 22 18 Rate Respiratory Rate [Bilateral Throughout] Blood Pressure 149/69 158/82 145/76 O2 Sat by Pulse 97 97 98 Oximetry 08/06/20 16:00 Temperature Pulse Rate 83 Pulse Rate [ Bilateral Throughout] Pulse Rate [ From Monitor] Respiratory 27 H Rate Respiratory Rate [Bilateral Throughout] Blood Pressure 155/77 O2 Sat by Pulse 97 Oximetry - General physical appearance Narrative Exam: Gen.: Intubated and sedated. ENT: ET tube and OG tube in place. Respiratory: Right chest tube #1 with serosanguineous drainage in tubing, no air leak. Right chest tube #2 with serosanguineous drainage in tubing, expiratory air leak. Left chest tube no leak. - Labs 08/06/20 04:00 08/06/20 04:00 Diabetes panel 08/06/20 Range/Units 04:00 Sodium 147 H (137-145) mmol/L Potassium 4.1 (3.6-5.0) mmol/L Chloride 112.5 H (98-107) mmol/L Carbon Dioxide 26 (22-30) mmol/L BUN 27 H (7-17) mg/dL Creatinine 0.6 (0.6-1.2) mg/dL Glucose 193 H (65-100) mg/dL Calcium 8.3 L (8.4-10.2) mg/dL AST 15 (5-40) units/L ALT 77 H (7-56) units/L Alkaline Phosphatase 70 (35-129) units/L Total Protein 5.0 L (6.3-8.2) g/dL Albumin 2.2 L (3.9-5) g/dL Calcium panel 08/06/20 Range/Units 04:00 Calcium 8.3 L (8.4-10.2) mg/dL Albumin 2.2 L (3.9-5) g/dL Pituitary panel 08/06/20 Range/Units 04:00 Sodium 147 H (137-145) mmol/L Potassium 4.1 (3.6-5.0) mmol/L Chloride 112.5 H (98-107) mmol/L Carbon Dioxide 26 (22-30) mmol/L BUN 27 H (7-17) mg/dL Creatinine 0.6 (0.6-1.2) mg/dL Glucose 193 H (65-100) mg/dL Calcium 8.3 L (8.4-10.2) mg/dL Adrenal panel 08/06/20 Range/Units 04:00 Sodium 147 H (137-145) mmol/L Potassium 4.1 (3.6-5.0) mmol/L Chloride 112.5 H (98-107) mmol/L Carbon Dioxide 26 (22-30) mmol/L BUN 27 H (7-17) mg/dL Creatinine 0.6 (0.6-1.2) mg/dL Glucose 193 H (65-100) mg/dL Calcium 8.3 L (8.4-10.2) mg/dL Total Bilirubin 0.20 (0.1-1.2) mg/dL AST 15 (5-40) units/L ALT 77 H (7-56) units/L Alkaline Phosphatase 70 (35-129) units/L Total Protein 5.0 L (6.3-8.2) g/dL Albumin 2.2 L (3.9-5) g/dL
[2020-08-06] MEDS: VANCOMYCIN 1,500 MG in SODIUM CHLORIDE 0.9% 500 ML 500 ML IV SCH (21:04)
[2020-08-07 02:29] LABS: Hematocrit 27.2 % (30.3-42.9); Hemoglobin 8.5 gm/dl (10.1-14.3); Mean Corpuscular HGB Conc 31 % (30-34); Mean Corpuscular Volume 93 fl (79-97); Platelet Count 270 K/mm3 (140-440); Red Blood Count 2.91 M/mm3 (3.65-5.03); Red Cell Distribution Width 17.7 % (13.2-15.2)
[2020-08-07 02:33] LABS: Basophils # (Auto) 0.1 K/mm3 (0.0-0.1); Basophils % (Auto) 0.5 % (0.0-1.8); Blood Urea Nitrogen 27 mg/dL (7-17); Calcium 8.6 mg/dL (8.4-10.2); Eosinophils # (Auto) 0.1 K/mm3 (0.0-0.4); Eosinophils % (Auto) 0.3 % (0.0-4.3); Hemolysis Index 15; Lymphocytes % (Auto) 5.3 % (13.4-35.0); Monocytes # (Auto) 0.3 K/mm3 (0.0-0.8); Monocytes % (Auto) 1.8 % (0.0-7.3)
[2020-08-07 02:35] LABS: BUN/Creatinine Ratio 54
[2020-08-07] MEDS: fentaNYL DRIP Premix 2,000 MCG/100 ML BAG IV SCH ×5 (02:53→21:19)
[2020-08-07] MEDS: MIDAZOLAM 100 MG in SODIUM CHLORIDE 0.9% 80 ML IV SCH ×2 (04:14→19:46)
[2020-08-07 04:36] LABS: ABG Base Excess 2.1 mmol/L (-2.0-3.0); ABG HCO3 27.6 mmol/L (20.0-26.0); ABG Methemoglobin 0.6 % (0.0-1.5); ABG Oxygen Saturation 97.9 % (95.0-99.0); ABG PCO2 47.9 mm Hg; ABG PH 7.379 pH Units (7.350-7.450); ABG PO2 111.4 mm Hg (80.0-90.0)
[2020-08-07] MEDS: chlordiazePOXIDE 25 MG CAP PO SCH ×3 (04:41→21:21)
[2020-08-07] MEDS: methylPREDNISolone Sod Succinate 40 MG/1 ML INJ IV SCH ×3 (05:15→21:21)
[2020-08-07] MEDS: GABAPENTIN 300 MG CAP PO SCH ×3 (05:15→21:21)
[2020-08-07] MEDS: METOCLOPRAMIDE 10 MG/2 ML INJ IV SCH ×3 (05:15→18:39)
[2020-08-07] MEDS: INSULIN REGULAR, HUMAN 100 UNIT/ML 3ML VIAL SUB-Q SCH ×3 (06:24→18:38)
[2020-08-07] MEDS: PROPOFOL 500 MG/50 ML VIAL IV SCH ×3 (06:30→21:20)
--- NOTE | 2020-08-07 07:06 | Progress Note ---
Assessment and Plan Cultures: Blood cultures 07/07/2020 no growth SARS COV2- IgG negative Sputum culture 07/08/2020 usual respiratory kerwin Blood culture 07/11/2020 no growth Blood culture 07/19/2020 no growth Tracheal aspirate 07/30/2020 MRSA and E. coli Blood cultures 08/03/2020 no growth today A/P: 50-year-old female with CHF, asthma, hypertension, lupus was admitted to the hospital with complaints of fever, shortness of breath. Of note, she was seen last week due to an asthma exacerbation when her SARS-CoV-2 PCR and IgG were both negative. She was treated with steroids. She reportedly then went to [place] and tested positive for COVID-19 and was discharged from the hospital on 07/05/2020: #Sepsis with septic shock: off pressors, no fever for 24 hours, worsening leukocytosis. Repeat blood cultures negative. Urinalysis negative. Source VAP +/- sinusitis. procal 119-->1.3, CRP 49-->26. #Acute hypoxic respiratory failure: Remains intubated, likely secondary to VAP and bilateral pneumothorax. #Bilateral pneumothorax: Status post bilateral chest tube, surgery on board #VAP: Secondary to MRSA and E. coli. Chest x-ray not especially concerning, however worsening pulmonary status with associated fevers. Procalcitonin massively elevated even in the setting of acute renal injury. #Critical Covid pneumonia: Completed remdesivir, IV steroids. #Lupus: On Plaquenil. #CHF #Asthma #MAHOGANY: Possible in setting of vancomycin, resolved Recs: -remove NGT-nostril with purulence ?sinusitis -Follow-up repeat blood cultures -Monitor off antibiotics -Started on full anticoagulation Guarded prognosis will follow Eneida Quiñones MD [facility] ([facility]) Office [phone] Subjective Date of service: 08/07/20 Principal diagnosis: Ac hypoxemic resp failure; PNA; COVID-19 infxn; SLE; Asthma exacerbation Interval history: No fever for 24 hours. Remains intubated. Objective - Exam Narrative Exam: General appearance: Sedated intubated Eyes: anicteric sclerae, moist conjunctivae; no lid-lag; PERRLA HENT: Normocephalic, Atraumatic; normal external ears, nares +NGT w purulence, oropharynx limited endotracheal tube in place Neck: supple, tracheal midline, no JVD Lungs: Bilateral scattered crackles, bilateral chest tubes, chest tubes x2 on the right CV: Tachycardic Abdomen: Soft, non-tender; no masses or hepatosplenomegaly Extremities: Bilateral leg edema Skin: Bilateral neck and chest subcutaneous emphysema Psych: Sedated Neuro: Sedated - Constitutional Vitals: Vital Signs Temp Pulse Resp BP Pulse Ox 98.8 F 117 H 10 L 107/50 100 08/07/20 04:00 08/07/20 06:45 08/07/20 06:45 08/07/20 06:45 08/07/20 06:45 Temperature -Last 24 Hours Temperature 98.8 F Temperature 97.0 F Temperature 97.4 F Temperature 97.8 F Temperature 98.1 F Temperature 97.3 F - Labs CBC & Chem 7: 08/07/20 02:06 08/07/20 02:06 Labs: Abnormal lab results 08/06/20 08/06/20 08/06/20 Range/Units 09:31 11:55 17:44 WBC (4.5-11.0) K/mm3 RBC (3.65-5.03) M/mm3 Hgb (10.1-14.3) gm/dl Hct (30.3-42.9) % RDW (13.2-15.2) % Lymph % (Auto) (13.4-35.0) % Lymph # (Auto) (1.2-5.4) K/mm3 Seg Neutrophils # (1.8-7.7) K/mm3 POC ABG pCO2 (32.0-48.0) mmHg POC ABG pO2 (83-108) mmHg ABG pO2 (80.0-90.0) mm Hg ABG HCO3 (20.0-26.0) mmol/L ABG Hemoglobin (12.0-17.5) ABG Oxyhemoglobin (94-98) ABG Chloride (98-107) mmol/L ABG Glucose (65-95) mg/dL Carboxyhemoglobin (0.5-1.5) Sodium (137-145) mmol/L Chloride (98-107) mmol/L BUN (7-17) mg/dL Creatinine (0.6-1.2) mg/dL Glucose (65-100) mg/dL POC Glucose 140 H 151 H 132 H (70-105) mg/dL Arterial Blood Glucose (65-95) mg/dL 08/06/20 08/06/20 08/07/20 Range/Units 21:11 23:21 02:06 WBC 18.0 H (4.5-11.0) K/mm3 RBC 2.91 L (3.65-5.03) M/mm3 Hgb 8.5 L (10.1-14.3) gm/dl Hct 27.2 L (30.3-42.9) % RDW 17.7 H (13.2-15.2) % Lymph % (Auto) 5.3 L (13.4-35.0) % Lymph # (Auto) 1.0 L (1.2-5.4) K/mm3 Seg Neutrophils # 16.6 H (1.8-7.7) K/mm3 POC ABG pCO2 49.3 H (32.0-48.0) mmHg POC ABG pO2 62.1 L (83-108) mmHg ABG pO2 (80.0-90.0) mm Hg ABG HCO3 (20.0-26.0) mmol/L ABG Hemoglobin 8.6 L (12.0-17.5) ABG Oxyhemoglobin 90.2 L (94-98) ABG Chloride 111.0 H (98-107) mmol/L ABG Glucose 171 H (65-95) mg/dL Carboxyhemoglobin 1.7 H (0.5-1.5) Sodium (137-145) mmol/L Chloride (98-107) mmol/L BUN (7-17) mg/dL Creatinine (0.6-1.2) mg/dL Glucose (65-100) mg/dL POC Glucose 160 H (70-105) mg/dL Arterial Blood Glucose 171 H (65-95) mg/dL 08/07/20 08/07/20 08/07/20 Range/Units 02:06 04:00 05:28 WBC (4.5-11.0) K/mm3 RBC (3.65-5.03) M/mm3 Hgb (10.1-14.3) gm/dl Hct (30.3-42.9) % RDW (13.2-15.2) % Lymph % (Auto) (13.4-35.0) % Lymph # (Auto) (1.2-5.4) K/mm3 Seg Neutrophils # (1.8-7.7) K/mm3 POC ABG pCO2 (32.0-48.0) mmHg POC ABG pO2 (83-108) mmHg ABG pO2 111.4 H (80.0-90.0) mm Hg ABG HCO3 27.6 H (20.0-26.0) mmol/L ABG Hemoglobin 8.5 L (12.0-17.5) ABG Oxyhemoglobin (94-98) ABG Chloride (98-107) mmol/L ABG Glucose (65-95) mg/dL Carboxyhemoglobin (0.5-1.5) Sodium 146 H (137-145) mmol/L Chloride 110.9 H (98-107) mmol/L BUN 27 H (7-17) mg/dL Creatinine 0.5 L (0.6-1.2) mg/dL Glucose 187 H (65-100) mg/dL POC Glucose 161 H (70-105) mg/dL Arterial Blood Glucose (65-95) mg/dL
--- NOTE | 2020-08-07 08:32 | XRay Report ---
XR chest 1V ap INDICATION / CLINICAL INFORMATION: PTX, vent. COMPARISON: Radiograph from yesterday. FINDINGS: SUPPORT DEVICES: Unchanged. HEART / MEDIASTINUM: The mediastinum is present but unchanged. LUNGS / PLEURA: Lung parenchyma is not significantly changed. Costophrenic sulci are sharp. No defi nite pneumothorax. ADDITIONAL FINDINGS: Air in the chest wall and base of neck. IMPRESSION: 1. No significant interval change. Signer Name: Guilherme Morales MD Signed: 08/07/2020 8:27 AM Workstation Name: [id number]
[2020-08-07] MEDS: ARFORMOTEROL 15 MCG/2 ML NEBU IH SCH ×2 (08:45→20:22)
[2020-08-07] MEDS: BUDESONIDE 0.5 MG/2 ML NEBU IH SCH ×2 (08:45→20:22)
--- NOTE | 2020-08-07 09:18 | Progress Note ---
Assessment and Plan Assessment and plan: -Severe COVID-19 PNA -On vent. Sedated -Completed steroids and remdesivir -ID following -- Acute hypoxic respiratory failure Mechanically ventilated Continue antibiotics for MRSA sputum. --- Ventilator associated pneumonia from MRSA and E. coli Continue cefepime and vancomycin ID following ---Sinus tachycardia Possible PE. D-dimer >4k Started on full dose anticoagulation Plan to do Cta chest when stable Monitor hemoglobin --Pneumothorax and subcutaneous emphysema Chest x-ray today shows improvement in pneumothorax and bilateral opacities. 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 -- Full code status brief History: 50-year-old female with a past medical history of asthma, hypertension, and lupus complains of generalized body weakness, fever and shortness of breath. Patient states the symptoms started right after she was discharged from [facility] on 07/05. She has associated wheezing, fever, cough and she has been using her inhalers with no significant effect. She also has associated diarrhea. Of note, she was hospitalized here in [facility] on 06/28 for asthma exacerbation and had a negative Covid test during the admission. She was treated and discharged. She presented to [facility] for further evaluation after discharge from here and over there, she was found to have positive COVID-19 test and she was placed on steroids and subsequently discharged on Eliquis prophylaxis for DVT. She states that she did not receive remdesivir during the admission. She was discharged from [facility] on 07/05. She went home and felt worse. She said that she passed out about 2 times. Due to persistent symptoms, she called EMS who brought her to [facility] for further evaluation. Daily course: 07/07. Patient seen and examined at bedside this morning. Patient is wheezing and slightly short of breath. Change steroids to Solu-Medrol 60 every 6. Added formoterol and budesonide. ID evaluation pending. Started patient on remdesivir as she is short of breath. 07/07: Placed on BIPAP this AM. Will need pulm evaluation. Solumedrol 60mg q6. STAT blood gas ordered. She will be transferred to [facility]. 07/08: Patient took oxygen off and attempts to go to the bathroom and subsequently became hypoxemic with sats down into the low 80s. Patient became weak short of breath. After that time patient had persistent coughing and cannot maintain sats until nonrebreather was placed. Patient is transferred to the ICU unit and monitored for respiratory failure possibly requiring intubation. 07/09: ID recommended for convalescent plasma, ordered. Patient intubated overnight. Continue to monitor clinically, scheduled lab, follow inflammatory markers 07/10: Wait for convalescent plasma transfusion, wean off from ventilator as tolerated 07/11: Called patient's daughter and updated. Continue to wean off vent as tolerated, continue tube feeding, monitor vital sign CBC BMP daily. 07/12: remains intubated and sedated. follow inflammatory markers - wean off vent as tolerated 07/13: wean off vent as tolerated, cxr in the am. reviewed vitals 07/14: remains intubated, has not received convalescent plasma yet. Reviewed vitals, tolerating tube feeding. Wean off vent per critical care as tolerated. 07/15: cont to provide supportive care, wean off vent as tolerated - difficult to wean off. 07/16: CXR findings improving, cont to wean off vent 07/17: Follow inflammatory markers, monitor off antibiotics. Wean off vent per pulmonary as tolerated 07/18: Wean off vent per pulmonary as tolerated,Follow inflammatory markers, monitor off antibiotics. 07/19: Wean off vent per pulmonary as tolerated,Follow inflammatory markers, monitor off antibiotics. SBT trial 07/20: Wean off vent as tolerated, continue supportive care, follow inflammatory markers 07/21: continue supportive care, follow inflammatory markers, wean off vent as tolerated 07/22: Continue to wean off from ventilator as tolerated per pulmonary recommendation, follow inflammatory markers. Repeat CBC BMP in the morning. We will repeat Covid test tomorrow to see if patient cleared the infection. 07/23. Continue to wean off from ventilator as tolerated per pulmonary recommendation, follow inflammatory markers. Currently AC mode, rate 16, tidal volume 450 with FiO2 75%vand PEEP 14 07/24/2020. Continue ventilatory support with AC mode, rate 16, tidal volume 450, FiO2 100% and PEEP of 16. Continue Brovana and Pulmicort. Continue IV steroids 40 mg IV every 8 hours. Anticoagulation with Lovenox 30 mg twice daily. Patient currently sedated with Versed and fentanyl. 07/25/2020. Continue ventilatory support with AC mode, rate 16, tidal volume 450, FiO2 75% and PEEP of 16. Continue Brovana and Pulmicort. Continue IV steroids 40 mg IV every 8 hours. Anticoagulation with Lovenox 30 mg twice daily. Patient currently sedated with Versed and fentanyl. Continue to wean per pulmonary recommendations. 07/26/2020. Continue ventilatory support with AC mode, rate 16, tidal volume 450, FiO2 85% and PEEP of 16. Continue Brovana and Pulmicort. Continue IV steroids 40 mg IV every 8 hours. Anticoagulation with Lovenox 30 mg twice daily. Patient currently sedated with Versed and fentanyl. Continue to wean per protocol. 07/27/2020. Continue ventilatory support with AC mode, rate 16, tidal volume 450, FiO2 100% and PEEP of 16. Patient with increased oxygen requirements the past couple of days. Continue Brovana and Pulmicort. Continue IV steroids 40 mg IV every 8 hours. Anticoagulation with Lovenox 30 mg twice daily. Patient currently sedated with Versed and fentanyl. Dose of Lasix given by pulmonary yesterday to achieve negative fluid balance. Follow-up serial chest x-ray 07/28/2020. Continue ventilatory support with AC mode, rate 16, tidal volume 450, FiO2 100% and PEEP of 16. Wean FiO2 per protocol. Continue Brovana and Pulmicort. Continue IV steroids 40 mg IV every 8 hours. Anticoagulation with Lovenox 30 mg twice daily. Patient currently sedated with Versed and fentanyl. 07/29/2020. Continue ventilatory support with AC mode, rate 16, tidal volume 450, FiO2 100% and PEEP of 16. Wean FiO2 per protocol. Continue Brovana and Pulmicort. Continue IV steroids 40 mg IV every 8 hours. Anticoagulation with Lovenox 30 mg twice daily. Wean sedation as tolerated. 07/30. Continue ventilatory support with AC mode, rate 16, tidal volume 450, FiO2 100% and PEEP of 16. Wean FiO2 per protocol. Continue Brovana and Pulmicort. Continue IV steroids 40 mg IV every 8 hours. Anticoagulation with Lovenox 30 mg twice daily. Wean sedation as tolerated. 07/31. Still ventilated. On sedatives. Renal function worse today. nephrology has been consulted. Started patient on IV hydration. BC - GN rods and staph aureus. She is on vancomycin. 08/01. Still ventilated. On sedatives. Renal function worse today. nephrology has been consulted. Started patient on IV hydration. BC - GN rods and staph aureus. She is on vancomycin. 08/02. Chest xray shows worsening pneumothorax. Chest tube in place. On vent and sedated 08/03. Continue ventilatory support with AC mode, rate 30, tidal volume 4000, FiO2 100% and PEEP of 16. Wean FiO2 per protocol. Continue Brovana and Pulmicort. Anticoagulation with Lovenox 30 mg twice daily. Wean sedation as tolerated. 08/04. Now has a left chest tube in place due to worsening pneumothorax. She also has subcutaneous emphysema. ID on board - on IV antibiotics-cefepime and vancomycin. ID following. 08/05. Patient is more tachycardic today with heart rate in 130s overnight. Chest x-ray shows improvement in pneumothoraces and bilateral opacities. Patient likely has a PE. Patient has been started on full anticoagulation. Still maintained on IV antibiotics. Continue ventilatory support. 08/06/2020; patient's Covid positive, pneumothorax on chest tube. Patient is likely has PE and started on heparin drip. Patient is intubated and sedated and pulmonary is following. 08/07/2020; patient's Covid positive, pneumothorax on chest tube. Patient is likely has PE and started on heparin drip. Patient is intubated and sedated and pulmonary is following. The high probability of a clinically significant, sudden or life threatening deterioration of the [[employer], respiratory, [employer]] system(s) required my full and di rect attention, intervention and personal management. The aggregate critical care time was [32] minutes. This time is in addition to time spent performing reported procedures but includes the following: [x] Data Review and interpretation [x] Patient assessment and monitoring of vital signs [x] Documentation [x] Medication orders and management History Interval history: Patient was seen and evaluated this morning patient is intubated and on mechanical ventilation Hospitalist Physical - Physical exam Narrative exam: Patient is intubated and on mechanical ventilation, FiO2 60%, sedated The patient appeared well nourished and normally developed. Vital signs as documented. Head exam is unremarkable. No scleral icterus . Neck is without jugular venous distension, thyromegaly, or carotid bruits. Lungs are clear to auscultation. Cardiac exam reveals regular rate and Rhythm. Abdominal exam reveals normal bowel sounds, nontender, no organomegaly. Extremities are nonedematous and both femoral and pedal pulses are normal. [employer]: Sedated - Constitutional Vitals: Temp Pulse Resp BP Pulse Ox 98.8 F 109 H 10 L 150/82 100 08/07/20 04:00 08/07/20 08:19 08/07/20 06:45 08/07/20 08:19 08/07/20 08:19 General appearance: Present: no acute distress, well-nourished Results - Labs CBC & Chem 7: 08/07/20 02:06 08/07/20 02:06 Labs: Laboratory Last Values WBC 18.0 K/mm3 (4.5-11.0) H 08/07/20 02:06 RBC 2.91 M/mm3 (3.65-5.03) L 08/07/20 02:06 Hgb 8.5 gm/dl (10.1-14.3) L 08/07/20 02:06 Hct 27.2 % (30.3-42.9) L 08/07/20 02:06 MCV 93 fl (79-97) 08/07/20 02:06 MCH 29 pg (28-32) 08/07/20 02:06 MCHC 31 % (30-34) 08/07/20 02:06 RDW 17.7 % (13.2-15.2) H 08/07/20 02:06 Plt Count 270 K/mm3 (140-440) 08/07/20 02:06 Lymph % (Auto) 5.3 % (13.4-35.0) L 08/07/20 02:06 [place] % (Auto) 1.8 % (0.0-7.3) 08/07/20 02:06 Eos % (Auto) 0.3 % (0.0-4.3) 08/07/20 02:06 Baso % (Auto) 0.5 % (0.0-1.8) 08/07/20 02:06 Lymph # (Auto) 1.0 K/mm3 (1.2-5.4) L 08/07/20 02:06 [place] # (Auto) 0.3 K/mm3 (0.0-0.8) 08/07/20 02:06 Eos # (Auto) 0.1 K/mm3 (0.0-0.4) 08/07/20 02:06 Baso # (Auto) 0.1 K/mm3 (0.0-0.1) 08/07/20 02:06 Add Manual Diff Complete 08/06/20 04:00 Total Counted 100 08/06/20 04:00 Seg Neutrophils % Re Examiner 08/07/20 02:06 Seg Neuts % (Manual) 86.0 % (40.0-70.0) H 08/06/20 04:00 Band Neutrophils % 4.0 % 08/06/20 04:00 Lymphocytes % (Manual) 5.0 % (13.4-35.0) L 08/06/20 04:00 Reactive Lymphs % (Man) 0 % 08/06/20 04:00 Monocytes % (Manual) 2.0 % (0.0-7.3) 08/06/20 04:00 Eosinophils % (Manual) 0 % (0.0-4.3) 08/06/20 04:00 Basophils % (Manual) 0 % (0.0-1.8) 08/06/20 04:00 Metamyelocytes % 3.0 % 08/06/20 04:00 Myelocytes % 0 % 08/06/20 04:00 Promyelocytes % 0 % 08/06/20 04:00 Blast Cells % 0 % 08/06/20 04:00 Nucleated RBC % Not Reportable 08/06/20 04:00 Seg Neutrophils # 16.6 K/mm3 (1.8-7.7) H 08/07/20 02:06 Seg Neutrophils # Man 10.8 K/mm3 (1.8-7.7) H 08/06/20 04:00 Band Neutrophils # 0.5 K/mm3 08/06/20 04:00 Lymphocytes # (Manual) 0.6 K/mm3 (1.2-5.4) L 08/06/20 04:00 Abs React Lymphs (Man) 0.0 K/mm3 08/06/20 04:00 Monocytes # (Manual) 0.3 K/mm3 (0.0-0.8) 08/06/20 04:00 Eosinophils # (Manual) 0.0 K/mm3 (0.0-0.4) 08/06/20 04:00 Basophils # (Manual) 0.0 K/mm3 (0.0-0.1) 08/06/20 04:00 Metamyelocytes # 0.4 K/mm3 08/06/20 04:00 Myelocytes # 0.0 K/mm3 08/06/20 04:00 Promyelocytes # 0.0 K/mm3 08/06/20 04:00 Blast Cells # 0.0 K/mm3 08/06/20 04:00 Pathologist Review 08/03/20 04:49 WBC Morphology Not Reportable 08/06/20 04:00 Hypersegmented Neuts Not Reportable 08/06/20 04:00 Hyposegmented Neuts Not Reportable 08/06/20 04:00 Hypogranular Neuts Not Reportable 08/06/20 04:00 Smudge Cells Not Reportable 08/06/20 04:00 Toxic Granulation Not Reportable 08/06/20 04:00 Toxic Vacuolation Not Reportable 08/06/20 04:00 Dohle Bodies Not Reportable 08/06/20 04:00 Pelger-Huet Anomaly Not Reportable 08/06/20 04:00 Savanna Rods Not Reportable 08/06/20 04:00 Platelet Estimate Consistent w auto 08/06/20 04:00 Clumped Platelets Not Reportable 08/06/20 04:00 Plt Clumps, EDTA Not Reportable 08/06/20 04:00 Large Platelets Not Reportable 08/06/20 04:00 Giant Platelets Not Reportable 08/06/20 04:00 Platelet Satelliting Not Reportable 08/06/20 04:00 Plt Morphology Comment Not Reportable 08/06/20 04:00 RBC Morphology Not Reportable 08/06/20 04:00 Dimorphic RBCs Not Reportable 08/06/20 04:00 Polychromasia Few 08/06/20 04:00 Hypochromasia 1+ 08/06/20 04:00 Poikilocytosis Not Reportable 08/06/20 04:00 Anisocytosis Few 08/06/20 04:00 Microcytosis Not Reportable 08/06/20 04:00 Macrocytosis Not Reportable 08/06/20 04:00 Spherocytes Not Reportable 08/06/20 04:00 Pappenheimer Bodies Not Reportable 08/06/20 04:00 Sickle Cells Not Reportable 08/06/20 04:00 Target Cells Not Reportable 08/06/20 04:00 Tear Drop Cells Not Reportable 08/06/20 04:00 Ovalocytes Not Reportable 08/06/20 04:00 Helmet Cells Not Reportable 08/06/20 04:[address] [place] Bodies Not Reportable 08/06/20 04:00 [place] Rings Not Reportable 08/06/20 04:00 Kristan Cells Not Reportable 08/06/20 04:00 Bite Cells Not Reportable 08/06/20 04:00 Crenated Cell Not Reportable 08/06/20 04:00 Elliptocytes Not Reportable 08/06/20 04:00 Acanthocytes (Spur) Not Reportable 08/06/20 04:00 Rouleaux Not Reportable 08/06/20 04:00 Hemoglobin C Crystals Not Reportable 08/06/20 04:00 Schistocytes Rare 08/06/20 04:00 Malaria parasites Not Reportable 08/06/20 04:00 Junaid Bodies Not Reportable 08/06/20 04:00 Hem Pathologist Commnt No 08/06/20 04:00 PT 15.4 Sec. (12.2-14.9) H 08/05/20 13:35 INR 1.22 (0.87-1.13) H 08/05/20 13:35 APTT 30.5 Sec. (24.2-36.6) 08/05/20 13:35 D-Dimer 4748.32 ng/mlDDU (0-234) H 08/05/20 13:35 Heparin Anti-Xa Level 0.47 U.I./ml (0.3-0.7) 08/06/20 10:00 ABG pH 7.379 pH Units (7.350-7.450) 08/07/20 04:00 POC ABG pCO2 50.5 mmHg (32.0-48.0) H 08/06/20 Unknown ABG pCO2 47.9 mm Hg 08/07/20 04:00 POC ABG pO2 70.5 mmHg (83-108) L 08/06/20 Unknown ABG pO2 111.4 mm Hg (80.0-90.0) H 08/07/20 04:00 POC ABG HCO3 26.4 08/06/20 Unknown ABG HCO3 27.6 mmol/L (20.0-26.0) H 08/07/20 04:00 ABG O2 Saturation 97.9 % (95.0-99.0) 08/07/20 04:00 ABG O2 Content 11.6 (0.0-44) 08/07/20 04:00 POC ABG Base Excess 0.3 08/06/20 Unknown ABG Base Excess 2.1 mmol/L (-2.0-3.0) 08/07/20 04:00 ABG Hemoglobin 8.5 gm/dl (12.0-16.0) L 08/07/20 04:00 ABG Oxyhemoglobin 90.2 (94-98) L 08/06/20 21:11 ABG Carboxyhemoglobin 2.1 % (0.0-5.0) 08/07/20 04:00 ABG Methemoglobin 0.6 % (0.0-1.5) 08/07/20 04:00 ABG Sodium 143.7 mmol/L (136.0-145.0) 08/06/20 Unknown ABG Potassium 4.0 mmol/L (3.40-4.50) 08/06/20 Unknown ABG Chloride 113.0 mmol/L (98-107) H 08/06/20 Unknown ABG Glucose 204 mg/dL (65-95) H 08/06/20 Unknown Oxyhemoglobin 95.3 % (95.0-99.0) 08/07/20 04:00 Carboxyhemoglobin 1.7 (0.5-1.5) H 08/06/20 21:11 FiO2 100 % 08/07/20 04:00 Sodium 146 mmol/L (137-145) H 08/07/20 02:06 Potassium 4.1 mmol/L (3.6-5.0) 08/07/20 02:06 Chloride 110.9 mmol/L (98-107) H 08/07/20 02:06 Carbon Dioxide 23 mmol/L (22-30) 08/07/20 02:06 Anion Gap 16 mmol/L 08/07/20 02:06 BUN 27 mg/dL (7-17) H 08/07/20 02:06 Creatinine 0.5 mg/dL (0.6-1.2) L 08/07/20 02:06 Estimated GFR > 60 ml/min 08/07/20 02:06 BUN/Creatinine Ratio 54 % 08/07/20 02:06 Glucose 187 mg/dL (65-100) H 08/07/20 02:06 POC Glucose 161 mg/dL (70-105) H 08/07/20 05:28 Lactic Acid 1.80 mmol/L (0.7-2.0) 07/31/20 14:14 Calcium 8.6 mg/dL (8.4-10.2) 08/07/20 02:06 Phosphorus 3.20 mg/dL (2.5-4.5) 07/08/20 16:13 Magnesium 2.20 mg/dL (1.7-2.3) 07/08/20 16:13 Ferritin 964.8 ng/mL (10.0-200.0) H 07/31/20 14:14 Total Bilirubin 0.20 mg/dL (0.1-1.2) 08/06/20 04:00 AST 15 units/L (5-40) 08/06/20 04:00 ALT 77 units/L (7-56) H 08/06/20 04:00 Alkaline Phosphatase 70 units/L (35-129) 08/06/20 04:00 Lactate Dehydrogenase 585 units/L (91-180) H 07/31/20 14:14 C-Reactive Protein 26.40 mg/dL (0.00-1.30) H 08/05/20 13:35 Total Protein 5.0 g/dL (6.3-8.2) L 08/06/20 04:00 Albumin 2.2 g/dL (3.9-5) L 08/06/20 04:00 Albumin/Globulin Ratio 0.8 % 08/06/20 04:00 Triglycerides 337 mg/dL (2-149) H 08/05/20 13:35 Procalcitonin 1.39 ng/mL (<0.15) 08/05/20 13:35 Arterial Blood Glucose 204 mg/dL (65-95) H 08/06/20 Unknown Arterial Blood Ionized Calcium 4.8 mg/dL (4.6-5.3) 08/06/20 Unknown Urine Color Yellow (Yellow) 07/11/20 09:30 Urine Turbidity Clear (Clear) 07/11/20 09:30 Urine pH 5.0 (5.0-7.0) 07/11/20 09:30 Ur Specific [place] 1.028 (1.003-1.030) 07/11/20 09:30 Urine Protein <15 mg/dl mg/dL (Negative) 07/11/20 09:30 Urine Glucose (UA) Neg mg/dL (Negative) 07/11/20 09:30 Urine Ketones Neg mg/dL (Negative) 07/11/20 09:30 Urine Blood Neg (Negative) 07/11/20 09:30 Urine Nitrite Neg (Negative) 07/11/20 09:30 Urine Bilirubin Neg (Negative) 07/11/20 09:30 Urine Urobilinogen 2.0 mg/dL (<2.0) 07/11/20 09:30 Ur Leukocyte Esterase Neg (Negative) 07/11/20 09:30 Urine WBC (Auto) 1.0 /HPF (0.0-6.0) 07/11/20 09:30 Urine RBC (Auto) 1.0 /HPF (0.0-6.0) 07/11/20 09:30 U Epithel Cells (Auto) 1.0 /HPF (0-13.0) 07/11/20 09:30 Urine Mucus Few /HPF 07/11/20 09:30 Urine Creatinine 89.2 mg/dL (0.1-20.0) H 07/31/20 16:00 Urine Sodium 26 mmol/L 07/31/20 16:00 Urine Total Protein 108 mg/dL (5-11.8) H 07/31/20 16:00 Vancomycin Trough 27.0 ug/mL (5.0-20.0) H 08/05/20 20:07 Random Vancomycin 7.9 ug/mL (0-40.0) 08/02/20 06:37 Coronavirus (PCR) Positive (Negative) A 07/23/20 Unknown SARS-CoV-2 IgG Ab Reactive (NonReactive) A 07/15/20 14:30 Blood Type O POSITIVE 07/09/20 15:30 Antibody Screen Negative 07/09/20 15:30 Microbiology: Microbiology 08/06/20 23:46 Peripheral/Venous Blood Culture - Preliminary Culture in Progress 08/06/20 22:57 Peripheral/Venous Blood Culture - Preliminary Culture in Progress - Diagnostic Impressions Diagnostic Impressions: Echocardiogram 07/19/20 13:13 Transthoracic Echocardiogram Indication: CHF BP: 106/58 Conclusions *The left ventricular systolic function is within normal limits. There are no wall motion abnormalities observed. *The estimated ejection fraction is 60-65%. *Normal left ventricular diastolic filling is observed. Findings Procedure Info: The study quality is fair. Left Ventricle: The left ventricular chamber size, wall thickness and systolic function are within normal limits. There are no wall motion abnormalities observed. Ejection fraction is normal. The estimated ejection fraction is 60-65%. Normal left ventricular diastolic filling is observed. Left Atrium: The left atrium is normal in size with no visual thrombus identified. Right Ventricle: The right ventricular chamber size and systolic function are within normal limits. Right Atrium: The right atrium appears normal. Aortic Valve: The aortic valve is trileaflet. The leaflets are thin with normal excursion. There is no aortic stenosis or regurgitation present. Mitral Valve: The mitral valve leaflets are mildly thickened. There is trace of mitral regurgitation. There is no evidence of mitral stenosis. Tricuspid Valve: The tricuspid valve leaflets are normal. There is trace tricuspid regurgitation. The right ventricular systolic pressure is calculated at 14 mmHg. There is no tricuspid stenosis. Pulmonic Valve: The pulmonic valve appears normal. There is mild pulmonic regurgitation. There is no pulmonic stenosis. Pericardium: The pericardium appears normal. Aorta: The aorta appears normal. Pulmonary Artery: The main pulmonary artery appears normal. Venous: The inferior vena cava appears normal in size. There is a greater than 50% respiratory change in the inferior vena cava dimension. Measurements Chambers 2D Name Value Normal Range IVSd (2D) 1.08 cm (0.6 - 1.1) LVPWd (2D) 0.91 cm (0.6 - 1.1) LVIDd (2D) 4.61 cm (3.7 - 5.6) LVIDs (2D) 3.12 cm (2 - 3.8) LV FS (2D) 32.38 % - EF Teichholz (2D) 60.72 % - Ao root diameter (2D) 3.01 cm (2 - 3.7) Volumes/Mass Name Value Normal Range LA ESV SP 4CH (A/L) 57.18 ml - LA ESV SP 2CH (A/L) 62.63 ml - LA ESV BP (A/L) 60.68 ml - LA ESV BP (A/L) index 28.22 ml/m2 - LA ESV SP 4CH (MOD) 51.17 ml - LA ESV SP 2CH (MOD) 57.8 ml - LA ESV BP (MOD) 54.73 ml - LA ESV BP (MOD) index 25.45 ml/m2 - LV EDV SP 4CH (MOD) 115.34 ml - LV ESV SP 4CH (MOD) 43.26 ml - EF SP 4CH (MOD) 62.5 % - LV EDV SP 2CH (MOD) 43.71 ml - LV ESV SP 2CH (MOD) 17.14 ml - EF SP 2CH (MOD) 60.79 % - LV EDV BP 73.15 ml - LV ESV BP 27.92 ml - BP EF (MOD) 61.83 % - Diastolic/Systolic Function Name Value Normal Range MV E-wave Vmax 0.88 m/sec - MV deceleration time 157.66 msec - MV A-wave Vmax 0.91 m/sec - MV E:A ratio 0.96 ratio - Aortic Valve Name Value Normal Range AV Vmax 1.54 m/sec - AV VTI 31.46 cm - AV peak gradient 9.51 mmHg - AV mean gradient 5.1 mmHg - LVOT diameter 1.95 cm - LVOT Vmax 1.21 m/sec - LVOT VTI 27.59 cm - LVOT peak gradient 5.83 mmHg - LVOT mean gradient 3.3 mmHg - SV LVOT 82.76 ml - SMITH (continuity Vmax) 2.35 cm2 - SMITH (continuity VTI) 2.63 cm2 - Ascending Ao 2.94 cm - Tricuspid Valve Name Value Normal Range TV E-wave Vmax 0.49 m/sec - TR Vmax 1.72 m/sec - TR peak gradient 11.86 mmHg - RAP 3 mmHg - RVSP 14 mmHg - IVC diameter 1.91 cm (1.2 - 2.3) Pulmonic Valve/Qp:Qs Name Value Normal Range PV Vmax 0.94 m/sec - PV peak gradient 3.54 mmHg - ME end-diastolic Vmax 0.54 m/sec - RVOT Vmax 0.68 m/sec - RVOT VTI 13.18 cm - RVOT peak gradient 1.82 mmHg - PV acceleration time 117.98 msec - Tejada/IV: Voiding Method Indwelling Catheter IV Catheter Type [Left Upper PICC Line arm] IV Catheter Type [Right INT / Saline Lock Forearm] IV Catheter Type [Left Wrist] INT / Saline Lock IV Catheter Type [Left Hand] Peripheral IV Active Medications - Current Medications Current Medications: Generic Name Dose Route Start Last Admin Trade Name Freq PRN Reason Stop Dose Admin Acetaminophen 650 mg 07/06/20 13:39 07/27/20 18:34 Tylenol PO 650 mg Q4H PRN Administration Pain MILD(1-3)/Fever >100.5/WILLETT Albuterol/Ipratropium 1 ampul 08/05/20 11:33 Duoneb *Not For Prn Use* IH TIDRT PRN Overdose Alprazolam 0.5 mg 07/07/20 12:28 07/27/20 03:15 Xanax PO 0.5 mg Q8H PRN Administration Anxiety Lipase/Protease/Amylase 1 each 07/08/20 14:50 Pancremaria del rosario Price 10,500 Unit FEEDTUBE PRN PRN For Clogged Feeding Tube Arformoterol Tartrate 15 mcg 07/07/20 09:15 08/06/20 20:10 Brovana Nebu IH 15 mcg Q12HRT ROMMEL Administration Ascorbic Acid 500 mg 07/08/20 22:00 08/06/20 21:06 Vitamin C PO 500 mg BID ROMMEL Administration Aspirin 81 mg 07/06/20 14:00 08/06/20 09:46 Baby Aspirin PO 81 mg QDAY ROMMEL Administration Budesonide 0.5 mg 07/07/20 09:15 08/06/20 20:10 Pulmicort IH 0.5 mg Q12HRT ROMMEL Administration Chlordiazepoxide HCl 75 mg 07/30/20 13:00 08/07/20 04:41 Librium PO 75 mg Q8H ROMMEL Administration Dextrose 50 ml 07/12/20 16:58 D50w (25gm) Syringe IV Q30MIN PRN Hypoglycemia Protocol Docusate Sodium 100 mg 07/16/20 22:00 08/06/20 21:08 Colace PO Not Given BID ROMMEL Fentanyl 50 mcg 07/08/20 13:16 07/29/20 15:45 Sublimaze IV 50 mcg Q10MIN PRN Administration ANALGESIA Gabapentin 600 mg 07/25/20 14:00 08/07/20 05:15 Gabapentin PO 600 mg Q8HR ROMMEL Administration Hydrophilic Ointment 1 applic 07/08/20 13:16 07/22/20 23:01 Vaseline Lip Therapy TP 1 applic Q2HR PRN Administration Dry Lips Hydroxychloroquine Sulfate 200 mg 07/07/20 10:00 08/06/20 09:46 Plaquenil PO 200 mg QDAY ROMMEL Administration Fentanyl Citrate 2,000 mcg in 100 mls @ 4.825 mls/hr 07/08/20 14:00 08/07/20 07:45 Fentanyl Drip Premix IV 4 mcg/kg/hr TITR ROMMEL 19.3 mls/hr Administration Protocol 1 MCG/KG/HR Midazolam HCl 100 mg/ Sodium 100 mls @ 2 mls/hr 07/08/20 15:00 08/07/20 04:14 Chloride IV 6 mg/hr TITR ROMMEL 6 mls/hr Administration Protocol 2 MG/HR Sodium Chloride 500 mls @ 10 mls/hr 07/15/20 15:00 Nacl 0.9% 500 Ml IV DIRECT [facility] Norepinephrine 4 mg in 250 mls @ 7.5 mls/hr 07/27/20 05:00 Levophed Drip 4 Mg/Ns 250 Ml IV TITR [facility] Protocol 2 MCG/MIN Vasopressin 20 unit/ Sodium 101 mls @ 9.09 mls/hr 07/30/20 13:00 08/04/20 14:25 Chloride IV 0 units/min TITR ROMMEL 0 mls/hr Titration Protocol 0.03 UNITS/MIN Phenylephrine HCl 100 mg/ 100 mls @ 3 mls/hr 07/30/20 15:00 08/04/20 10:08 Sodium Chloride IV 0 mcg/min TITR ROMMEL 0 mls/hr Titration Protocol 50 MCG/MIN Dopamine HCl/Dextrose 800 mg in 250 mls @ 3.679 mls/hr 07/31/20 22:00 Intropin Drip 800 Mg/D5w 250 Ml IV TITR [facility] Protocol 2 MCG/KG/MIN Ceftriaxone Sodium 2 gm in 100 mls @ 200 mls/hr 08/02/20 10:00 08/06/20 09:48 Rocephin/Ns 2 Gm/100 Ml IV 08/07/20 23:59 200 mls/hr Q24HR [facility] Administration Protocol Heparin Sodium/Sodium Chloride 25,000 unit in 500 mls @ 30 mls/hr 08/05/20 13:00 08/06/20 21:05 Heparin/ 0.45% Nacl-25,000 Unit/500 Ml IV 1,500 units/hr TITR [facility] 30 mls/hr Administration Protocol 1,500 UNITS/HR Propofol 500 mg in 50 mls @ 2.946 mls/hr 08/05/20 13:00 08/07/20 06:30 Propofol IV 10 mcg/kg/min TITR ROMMEL 5.892 mls/hr Administration Protocol 5 MCG/KG/MIN Vancomycin HCl 1,500 mg/ 530 mls @ 333.333 mls/hr 08/06/20 22:00 08/06/20 21:04 Sodium Chloride IV 08/07/20 23:36 333.333 mls/hr Q24H [facility] Administration Insulin Glargine 16 units 08/04/20 08:26 08/06/20 09:47 Lantus SUB-Q 16 units Q24H ROMM[facility] Administration Insulin Human Regular 0 unit 08/01/20 00:00 08/07/20 06:24 Humulin R SUB-Q 3 unit Q6HR ROMM[facility] Administration Protocol Lansoprazole 30 mg 07/10/20 10:00 08/06/20 09:47 Prevacid Solutab FEEDTUBE 30 mg QDAY ROMMEL Administration Methylprednisolone Sodium Succinate 40 mg 07/22/20 14:00 08/07/20 05:15 Solu-Medrol IV 40 mg Q8H ROMM[facility] Administration Metoclopramide HCl 5 mg 08/05/20 12:00 08/07/20 05:15 Reglan IV 5 mg Q6HR ROMM[facility] Administration Multi-Ingred Cream/Lotion/Oil/Oint 1 applic 07/08/20 13:16 Artificial Tears Ophth Oint OU Q4HR PRN Dry Eye(s) Ondansetron HCl 4 mg 07/06/20 13:39 07/08/20 10:44 Zofran IV 4 mg Q8H PRN Administration Nausea And Vomiting Polyethylene Glycol 17 gm 07/29/20 12:00 08/06/20 11:29 Miralax 3350 PO Not Given DAILY ROMM[facility] Quetiapine Fumarate 200 mg 07/25/20 22:00 08/06/20 21:06 Seroquel PO 200 mg BID ROMM[facility] Administration Quetiapine Fumarate 100 mg 07/25/20 22:00 08/06/20 21:07 Seroquel PO 100 mg BID [facility] Administration Simple Syrup 15 ml 07/08/20 14:50 Simple Syrup FEEDTUBE PRN PRN Hypoglycemia Simple Syrup 30 ml 07/08/20 14:50 Simple Syrup FEEDTUBE PRN PRN Hypoglycemia Sodium Bicarbonate 325 mg 07/08/20 14:50 Sodium Bicarbonate FEEDTUBE PRN PRN For Clogged Feeding Tube Sodium Chloride 10 ml 07/06/20 14:00 08/06/20 21:03 Sodium Chloride Flush Syringe 10 Ml IV 10 ml BID [facility] Administration Sodium Chloride 10 ml 07/06/20 13:39 07/26/20 06:31 Sodium Chloride Flush Syringe 10 Ml IV 10 ml PRN PRN Administration LINE FLUSH Venlafaxine HCl 37.5 mg 07/07/20 10:00 08/06/20 09:47 Effexor PO 37.5 mg DAILY ROMM[facility] Administration Zinc Sulfate 220 mg 07/08/20 22:00 08/06/20 21:06 Zinc Sulfate PO 220 mg BID ROMMEL Administration Nutrition/Malnutrition Assess - Dietary Evaluation Nutrition/Malnutrition Findings: Nutrition Notes Start: 07/08/20 14:02 Freq: Status: Active Protocol: Document 08/05/20 14:32 (Rec: 08/05/20 14:42 [id number]) Nutrition Notes Initial or Follow up Reassessment Current Diagnosis Acute Kidney Injury, Hypertension,Heart Failure Other Pertinent Diagnosis Acute respiratory failure, COVID(+), GERD, Lupus, Anemia Current Diet Vital AF 1.2 at 55 mL/hr (goal rate) Labs/Tests Na 149 BUN 32 BG 184 Pertinent Medications Diprivan Fentanyl Solu-medrol Humulin Vitamin C Height 5 ft 5 in Weight 112.1 kg [place] Body Weight (kg) 56.81 BMI 41.1 Weight change and time frame Wt change noted Subjective/Other Information FU for TF tolerance and BM. Pt has BM yesterday. Pt has been having increased gastric residuals. TF currently at 35 ml/hr. Per RN, pt will be on LIS for 4 hours later today and pt having gas issues in stomach. Percent of energy/protein needs met: 53%/55% Burn Absent Trauma Absent GI Symptoms None Current % PO Negligible Minimum of two criteria No physical signs of malnutrition #1 Nutrition Diagnosis Inadequate oral intake Diagnosis Progress(for reassessment Continues documentation) Is patient on ventilator? Yes Is Patient Ambulatory and/or Out of Bed No REE-([place]-confined to bed) 2105.508 Kcal/Kg value to use for calculation 17 Approximate Energy Requirements Using 1906 kcal/Kg Calculation Used for Recommendations Kcal/kg Additional Notes Pro: greater than 114 g (>2 g/ kg IBW) Fluid: 1ml/kcal or per MD Nutrition Intervention Change Diet Order: Continue TF as tolerated Nutrition Support: Vital AF at 55 ml/hr Flush 75 ml q4h. Kcal 1,584 Protein (gm) 99 Fluid (mL) 1,070 Goal #1 TF rate advancement as tolerated Goal #2 Meet at least 80% of protein and energy needs via TF Anticipated Discharge Needs: Cannot determine at this time Follow-Up By: 08/07/20 Additional Comments FU for TF tolerance/ advancement
[2020-08-07] MEDS: ZINC SULFATE 220 MG CAP PO SCH ×2 (10:59→21:21)
[2020-08-07] MEDS: INSULIN GLARGINE 100 UNITS/ML SUB-Q SCH (10:59)
[2020-08-07] MEDS: LANSOPRAZOLE 30 MG SOLUTAB FEEDTUBE SCH (11:01)
[2020-08-07] MEDS: ASPIRIN 81 MG TAB CHEW PO SCH (11:01)
[2020-08-07] MEDS: VENLAFAXINE 37.5 MG TAB PO SCH (11:01)
[2020-08-07] MEDS: HYDROXYCHLOROQUINE 200 MG TAB PO SCH (11:01)
[2020-08-07] MEDS: POLYETHYLENE GLYCOL 3350 17 GM POWDER PO SCH (11:02)
[2020-08-07] MEDS: QUEtiapine 200 MG TAB PO SCH ×2 (11:02→21:21)
[2020-08-07] MEDS: cefTRIAXone/NS 2 GM/100 ML 2 GM/100 ML BAG IV SCH (11:02)
[2020-08-07] MEDS: QUEtiapine 100 MG TAB PO SCH ×2 (11:02→21:21)
[2020-08-07] MEDS: ASCORBIC ACID 500 MG TAB PO SCH ×2 (11:04→21:21)
[2020-08-07] MEDS: DOCUSATE SODIUM 100 MG/10 ML ORAL LIQD PO SCH ×2 (11:04→21:21)
--- NOTE | 2020-08-07 11:56 | Progress Note ---
Assessment and Plan Acute hypoxemic respiratory failure, now on MVS Bilateral pneumonia, left greater than right lungs. COVID-19 infection. History of congestive heart failure. History of lupus erythematosus. Leukocytosis. Tobacco use disorder. Acute asthma exacerbation. History of hypertension. Obesity Subcutaneous Emphysema Bilateral Pneumothoraces - continue full dose anticoagulation with IV Heparin - nephrology evaluation ongoing - continue free water to 200 mls q4h po - Reglan 5 mg IV q6h - discontinued alves catheter - continue chest tubes to continuous suction (surgery assistance appreciated) - keep peep at 16 - continue sedation and target RASS -2 to -3 acutely - repeat ABG in am - growing E. Coli & MRSA from tracheal aspirate; continue and de-escalate AB's per ID recommendations - prognosis grave to guarded especially neurologic-rai - continue care as below otherwise; - wean Vasopressors for target MAP > 65 mmHg - continue Librium - repeat COVID-19 test is positive - continue systemic steroids - continue to wean supplemental oxygen for target O2 sat's > 92% - continue low dose SSI - continue Seroquel 300 mg p.o. bid - continue airborne and contact isolation - continue Zinc & Vit C supplementaion - complete Remdesivir - de-escalate AB's per ID rec's - continue systemic steroids for Asthma / severe COVID infection - continue Daily SAT and SBT assessment as tolerated - VAP bundle addressed - continue lung protective strategies - continue bronchodilators with pulmonary hygiene per RT - wean per pulmonary driven protocols otherwise - accuchecks with glycemic control per SSI (While critically ill target blood glucose of 140-180 mg/dL; avoid hypoglycemia) - sedation prn for target RASS -1 to -2 - avoid nephrotoxins, renally dose all medications - continue to avoid benzodiazepine's, reduce the possibility of delirium - prn analgesia per CPOT score - Maintenance of sleep-wake cycle, avoid delirium - continue enteral nutritional support at goal rate as tolerated - G.I. & VTE prophylaxis - PT/OT/ROM exercises - continue mobility protocols for pressure ulcer prophylaxis - Monitor hemodynamics closely - continue other care per attending / other consultants - discharge planning ongoing concurrently .... Re-evaluate in am & prn CONDITION: CRITICAL PROGNOSIS: GUARDED CODE STATUS: FULL CODE The high probability of a clinically significant, sudden or life-threatening deterioration of the [respiratory, cardiovascular & neurologic] system(s) required my full and direct attention, intervention and personal management. The aggregate critical care time was [37] minutes without overlap. Time includes spent on; [x] Data Review and interpretation [x] Patient assessment and monitoring of vital signs [x] Documentation [x] Medication orders and management Subjective Date of service: 08/07/20 Principal diagnosis: Ac hypoxemic resp failure; PNA; COVID-19 infxn; SLE; Asthma exacerbation Interval history: Patient is seen today for: Acute hypoxemic respiratory failure; Bilateral pneumonia; COVID-19 infection; H/O CHF; SLE; Acute asthma exacerbation. HTN; Obesity Seen and examined at bedside; 24hour events reviewed; nursing and respiratory care staff consulted; no adverse overnight events reported to me; resting peacefully in bed; remains on MVS; chest tubes in place; oxygen remains labile; sub-Q emphysema stable; sedated; no emesis or overt aspiration Objective Vital Signs - 12hr 08/07/20 08/07/20 08/07/20 00:00 00:15 00:31 Temperature 97.0 F L Pulse Rate 112 H 108 H 104 H Respiratory 31 H 31 H 32 H Rate Blood Pressure 151/86 160/81 151/86 O2 Sat by Pulse 100 100 90 Oximetry 08/07/20 08/07/20 08/07/20 00:45 01:00 01:15 Temperature Pulse Rate 103 H 102 H 104 H Respiratory 31 H 32 H 31 H Rate Blood Pressure 152/80 152/80 155/78 O2 Sat by Pulse 89 91 91 Oximetry 08/07/20 08/07/20 08/07/20 01:31 01:45 02:00 Temperature Pulse Rate 104 H 106 H 105 H Respiratory 31 H 30 H 18 Rate Blood Pressure 151/80 135/81 144/78 O2 Sat by Pulse 87 89 93 Oximetry 08/07/20 08/07/20 08/07/20 02:15 02:30 02:45 Temperature Pulse Rate 104 H 105 H 108 H Respiratory 31 H 25 H 18 Rate Blood Pressure 163/82 179/82 183/87 O2 Sat by Pulse 86 91 89 Oximetry 08/07/20 08/07/20 08/07/20 03:01 03:15 03:31 Temperature Pulse Rate 110 H 115 H 116 H Respiratory 20 15 12 Rate Blood Pressure 195/91 185/82 175/83 O2 Sat by Pulse 98 93 98 Oximetry 08/07/20 08/07/20 08/07/20 03:45 03:56 04:00 Temperature 98.8 F Pulse Rate 117 H 120 H Respiratory 12 Rate Blood Pressure 178/82 178/82 O2 Sat by Pulse 100 100 Oximetry 08/07/20 08/07/20 08/07/20 04:01 04:15 04:30 Temperature Pulse Rate 118 H 118 H 115 H Respiratory 11 L 11 L 11 L Rate Blood Pressure 151/64 138/75 126/67 O2 Sat by Pulse 99 99 100 Oximetry 08/07/20 08/07/20 08/07/20 04:45 05:01 05:15 Temperature Pulse Rate 117 H 116 H 115 H Respiratory 11 L 12 11 L Rate Blood Pressure 127/61 128/63 125/59 O2 Sat by Pulse 100 100 100 Oximetry 08/07/20 08/07/20 08/07/20 05:31 05:45 06:01 Temperature Pulse Rate 115 H 113 H 113 H Respiratory 9 L 10 L 11 L Rate Blood Pressure 126/57 118/58 109/51 O2 Sat by Pulse 100 100 100 Oximetry 08/07/20 08/07/20 08/07/20 06:15 06:31 06:45 Temperature Pulse Rate 113 H 116 H 117 H Respiratory 10 L 11 L 10 L Rate Blood Pressure 113/59 105/52 107/50 O2 Sat by Pulse 100 99 100 Oximetry 08/07/20 08/07/20 08/07/20 07:01 07:15 07:31 Temperature Pulse Rate 116 H 112 H 116 H Respiratory 10 L 9 L 10 L Rate Blood Pressure 107/53 111/56 109/54 O2 Sat by Pulse 98 100 100 Oximetry 08/07/20 08/07/20 08/07/20 07:45 08:00 08:15 Temperature 99.4 F Pulse Rate 112 H 116 H 109 H Respiratory 9 L 10 L 12 Rate Blood Pressure 127/63 140/59 150/82 O2 Sat by Pulse 100 100 100 Oximetry 08/07/20 08/07/20 08/07/20 08:19 08:30 08:45 Temperature Pulse Rate 109 H 106 H 109 H Respiratory 10 L 10 L Rate Blood Pressure 150/82 201/69 154/82 O2 Sat by Pulse 100 100 100 Oximetry 08/07/20 08/07/20 08/07/20 09:00 09:15 09:31 Temperature Pulse Rate 108 H 109 H 107 H Respiratory 13 12 28 H Rate Blood Pressure 164/84 176/82 138/75 O2 Sat by Pulse 100 100 100 Oximetry 08/07/20 11:34 Temperature Pulse Rate 102 H Respiratory Rate Blood Pressure 137/59 O2 Sat by Pulse 100 Oximetry Constitutional: no acute distress, other (middle aged obese female with mildly increased respiratory effort at rest on MVS) Eyes: non-icteric ENT: oropharynx moist, other (ETT 23cm YANET) Neck: supple, no lymphadenopathy, no JVD Effort: mildly labored Ascultation: Bilateral: diminished breath sounds, rhonchi, other (two R. chest tubes and 1 on left (leaks on right side)) Percussion: Bilateral: not dull Cardiovascular: regular rate and rhythm, other (S1,S2) Gastrointestinal: normoactive bowel sounds, soft, non-tender, non-distended Integumentary: normal Extremities: no cyanosis, no edema, pulses normal, no ischemia or petechiae Neurologic: pupils equal and round, other (sedated) Psychiatric: other (unable to assess re: AMS / sedation) CBC and BMP: 08/10/20 05:00 08/10/20 05:00 ABG, PT/INR, D-dimer: ABG ABG pH 7.379 pH Units (7.350-7.450) 08/07/20 04:00 POC ABG pCO2 50.5 mmHg (32.0-48.0) H 08/06/20 Unknown ABG pCO2 47.9 mm Hg 08/07/20 04:00 POC ABG pO2 70.5 mmHg (83-108) L 08/06/20 Unknown ABG pO2 111.4 mm Hg (80.0-90.0) H 08/07/20 04:00 POC ABG HCO3 26.4 08/06/20 Unknown ABG O2 Saturation 97.9 % (95.0-99.0) 08/07/20 04:00 PT/INR, D-dimer PT 15.4 Sec. (12.2-14.9) H 08/05/20 13:35 INR 1.22 (0.87-1.13) H 08/05/20 13:35 D-Dimer 4748.32 ng/mlDDU (0-234) H 08/05/20 13:35 Abnormal lab findings: Abnormal Labs 07/06/20 07/06/20 07/07/20 05:24 17:16 04:50 WBC 13.5 H 12.7 H RBC Hgb Hct MCH MCHC RDW Plt Count Lymph % (Auto) Lymph # (Auto) Seg Neutrophils % Seg Neuts % (Manual) 86.0 H 87.0 H Lymphocytes % (Manual) 6.0 L 9.0 L Eosinophils % (Manual) Nucleated RBC % Seg Neutrophils # Seg Neutrophils # Man 11.6 H 11.0 H Lymphocytes # (Manual) 0.8 L 1.1 L Eosinophils # (Manual) PT INR D-Dimer ABG pH POC ABG pCO2 POC ABG pO2 ABG pO2 ABG HCO3 ABG O2 Saturation ABG Base Excess ABG Hemoglobin ABG Oxyhemoglobin ABG Sodium ABG Potassium ABG Chloride ABG Glucose Oxyhemoglobin Carboxyhemoglobin Sodium Potassium Chloride Carbon Dioxide BUN Creatinine Glucose POC Glucose Lactic Acid Calcium Ferritin AST ALT Lactate Dehydrogenase 242 H C-Reactive Protein 7.30 H Total Protein Albumin Triglycerides Arterial Blood Glucose Arterial Blood Ionized Calcium Urine Creatinine Urine Total Protein Vancomycin Trough Coronavirus (PCR) SARS-CoV-2 IgG Ab 07/07/20 07/07/20 07/07/20 04:50 14:22 14:22 WBC RBC Hgb Hct MCH MCHC RDW Plt Count Lymph % (Auto) Lymph # (Auto) Seg Neutrophils % Seg Neuts % (Manual) Lymphocytes % (Manual) Eosinophils % (Manual) Nucleated RBC % Seg Neutrophils # Seg Neutrophils # Man Lymphocytes # (Manual) Eosinophils # (Manual) PT INR D-Dimer ABG pH POC ABG pCO2 POC ABG pO2 ABG pO2 ABG HCO3 ABG O2 Saturation ABG Base Excess ABG Hemoglobin ABG Oxyhemoglobin ABG Sodium ABG Potassium ABG Chloride ABG Glucose Oxyhemoglobin Carboxyhemoglobin Sodium Potassium Chloride Carbon Dioxide BUN 18 H Creatinine Glucose 138 H POC Glucose Lactic Acid Calcium Ferritin 228.2 H AST ALT Lactate Dehydrogenase 277 H C-Reactive Protein Total Protein 5.9 L Albumin 3.4 L Triglycerides Arterial Blood Glucose Arterial Blood Ionized Calcium Urine Creatinine Urine Total Protein Vancomycin Trough Coronavirus (PCR) SARS-CoV-2 IgG Ab 07/08/20 07/08/20 07/08/20 11:18 12:57 16:13 WBC RBC Hgb Hct MCH MCHC RDW Plt Count Lymph % (Auto) Lymph # (Auto) Seg Neutrophils % Seg Neuts % (Manual) Lymphocytes % (Manual) Eosinophils % (Manual) Nucleated RBC % Seg Neutrophils # Seg Neutrophils # Man Lymphocytes # (Manual) Eosinophils # (Manual) PT INR D-Dimer ABG pH POC ABG pCO2 POC ABG pO2 ABG pO2 39.3 L* ABG HCO3 ABG O2 Saturation 76.8 L ABG Base Excess ABG Hemoglobin ABG Oxyhemoglobin ABG Sodium ABG Potassium ABG Chloride ABG Glucose Oxyhemoglobin 75.3 L Carboxyhemoglobin Sodium Potassium Chloride Carbon Dioxide 20 L D BUN Creatinine Glucose 135 H POC Glucose 106 H Lactic Acid Calcium 8.0 L Ferritin AST ALT Lactate Dehydrogenase C-Reactive Protein Total Protein Albumin Triglycerides Arterial Blood Glucose Arterial Blood Ionized Calcium Urine Creatinine Urine Total Protein Vancomycin Trough Coronavirus (PCR) SARS-CoV-2 IgG Ab 07/08/20 07/08/20 07/09/20 17:04 18:45 04:00 WBC 15.6 H RBC Hgb Hct MCH MCHC RDW Plt Count Lymph % (Auto) 4.7 L Lymph # (Auto) 0.7 L Seg Neutrophils % Seg Neuts % (Manual) Lymphocytes % (Manual) Eosinophils % (Manual) Nucleated RBC % Seg Neutrophils # 14.2 H Seg Neutrophils # Man Lymphocytes # (Manual) Eosinophils # (Manual) PT INR D-Dimer ABG pH POC ABG pCO2 POC ABG pO2 ABG pO2 181.8 H ABG HCO3 ABG O2 Saturation 99.1 H ABG Base Excess ABG Hemoglobin 11.4 L ABG Oxyhemoglobin ABG Sodium ABG Potassium ABG Chloride ABG Glucose Oxyhemoglobin Carboxyhemoglobin Sodium Potassium Chloride Carbon Dioxide BUN Creatinine Glucose POC Glucose 117 H Lactic Acid Calcium Ferritin AST ALT Lactate Dehydrogenase C-Reactive Protein Total Protein Albumin Triglycerides Arterial Blood Glucose Arterial Blood Ionized Calcium Urine Creatinine Urine Total Protein Vancomycin Trough Coronavirus (PCR) SARS-CoV-2 IgG Ab 07/09/20 07/09/20 07/09/20 04:00 04:00 04:49 WBC RBC Hgb Hct MCH MCHC RDW Plt Count Lymph % (Auto) Lymph # (Auto) Seg Neutrophils % Seg Neuts % (Manual) Lymphocytes % (Manual) Eosinophils % (Manual) Nucleated RBC % Seg Neutrophils # Seg Neutrophils # Man Lymphocytes # (Manual) Eosinophils # (Manual) PT INR D-Dimer ABG pH POC ABG pCO2 POC ABG pO2 ABG pO2 ABG HCO3 26.2 H ABG O2 Saturation ABG Base Excess ABG Hemoglobin 11.2 L ABG Oxyhemoglobin ABG Sodium ABG Potassium ABG Chloride ABG Glucose Oxyhemoglobin 94.9 L Carboxyhemoglobin Sodium Potassium Chloride Carbon Dioxide BUN Creatinine Glucose 158 H POC Glucose Lactic Acid Calcium 8.2 L Ferritin 320.0 H AST ALT Lactate Dehydrogenase 391 H C-Reactive Protein 9.50 H Total Protein 5.9 L Albumin 3.2 L Triglycerides Arterial Blood Glucose Arterial Blood Ionized Calcium Urine Creatinine Urine Total Protein Vancomycin Trough Coronavirus (PCR) SARS-CoV-2 IgG Ab 07/09/20 07/09/20 07/09/20 11:56 17:49 23:39 WBC RBC Hgb Hct MCH MCHC RDW Plt Count Lymph % (Auto) Lymph # (Auto) Seg Neutrophils % Seg Neuts % (Manual) Lymphocytes % (Manual) Eosinophils % (Manual) Nucleated RBC % Seg Neutrophils # Seg Neutrophils # Man Lymphocytes # (Manual) Eosinophils # (Manual) PT INR D-Dimer ABG pH POC ABG pCO2 POC ABG pO2 ABG pO2 ABG HCO3 ABG O2 Saturation ABG Base Excess ABG Hemoglobin ABG Oxyhemoglobin ABG Sodium ABG Potassium ABG Chloride ABG Glucose Oxyhemoglobin Carboxyhemoglobin Sodium Potassium Chloride Carbon Dioxide BUN Creatinine Glucose POC Glucose 156 H 119 H 145 H Lactic Acid Calcium Ferritin AST ALT Lactate Dehydrogenase C-Reactive Protein Total Protein Albumin Triglycerides Arterial Blood Glucose Arterial Blood Ionized Calcium Urine Creatinine Urine Total Protein Vancomycin Trough Coronavirus (PCR) SARS-CoV-2 IgG Ab 07/10/20 07/10/20 07/10/20 03:32 05:26 11:22 WBC RBC Hgb Hct MCH MCHC RDW Plt Count Lymph % (Auto) Lymph # (Auto) Seg Neutrophils % Seg Neuts % (Manual) Lymphocytes % (Manual) Eosinophils % (Manual) Nucleated RBC % Seg Neutrophils # Seg Neutrophils # Man Lymphocytes # (Manual) Eosinophils # (Manual) PT INR D-Dimer ABG pH POC ABG pCO2 POC ABG pO2 ABG pO2 75.7 L ABG HCO3 27.5 H ABG O2 Saturation ABG Base Excess ABG Hemoglobin 9.3 L ABG Oxyhemoglobin ABG Sodium ABG Potassium ABG Chloride ABG Glucose Oxyhemoglobin 94.7 L Carboxyhemoglobin Sodium Potassium Chloride Carbon Dioxide BUN Creatinine Glucose POC Glucose 156 H 148 H Lactic Acid Calcium Ferritin AST ALT Lactate Dehydrogenase C-Reactive Protein Total Protein Albumin Triglycerides Arterial Blood Glucose Arterial Blood Ionized Calcium Urine Creatinine Urine Total Protein Vancomycin Trough Coronavirus (PCR) SARS-CoV-2 IgG Ab 07/10/20 07/10/20 07/10/20 12:10 12:10 18:20 WBC 14.1 H RBC 3.33 L Hgb 9.9 L Hct MCH MCHC RDW Plt Count Lymph % (Auto) Lymph # (Auto) Seg Neutrophils % Seg Neuts % (Manual) 89.0 H Lymphocytes % (Manual) 8.0 L Eosinophils % (Manual) Nucleated RBC % Seg Neutrophils # Seg Neutrophils # Man 12.5 H Lymphocytes # (Manual) 1.1 L Eosinophils # (Manual) PT INR D-Dimer ABG pH POC ABG pCO2 POC ABG pO2 ABG pO2 ABG HCO3 ABG O2 Saturation ABG Base Excess ABG Hemoglobin ABG Oxyhemoglobin ABG Sodium ABG Potassium ABG Chloride ABG Glucose Oxyhemoglobin Carboxyhemoglobin Sodium Potassium Chloride Carbon Dioxide BUN 21 H Creatinine Glucose 154 H POC Glucose 181 H Lactic Acid Calcium 8.0 L Ferritin AST ALT Lactate Dehydrogenase C-Reactive Protein Total Protein 5.4 L Albumin 3.0 L Triglycerides Arterial Blood Glucose Arterial Blood Ionized Calcium Urine Creatinine Urine Total Protein Vancomycin Trough Coronavirus (PCR) SARS-CoV-2 IgG Ab 07/10/20 07/11/20 07/11/20 23:51 04:05 05:43 WBC RBC Hgb Hct MCH MCHC RDW Plt Count Lymph % (Auto) Lymph # (Auto) Seg Neutrophils % Seg Neuts % (Manual) Lymphocytes % (Manual) Eosinophils % (Manual) Nucleated RBC % Seg Neutrophils # Seg Neutrophils # Man Lymphocytes # (Manual) Eosinophils # (Manual) PT INR D-Dimer ABG pH 7.348 L POC ABG pCO2 POC ABG pO2 ABG pO2 93.6 H ABG HCO3 28.5 H ABG O2 Saturation ABG Base Excess ABG Hemoglobin 10.1 L ABG Oxyhemoglobin ABG Sodium ABG Potassium ABG Chloride ABG Glucose Oxyhemoglobin Carboxyhemoglobin Sodium Potassium Chloride Carbon Dioxide BUN Creatinine Glucose POC Glucose 116 H 132 H Lactic Acid Calcium Ferritin AST ALT Lactate Dehydrogenase C-Reactive Protein Total Protein Albumin Triglycerides Arterial Blood Glucose Arterial Blood Ionized Calcium Urine Creatinine Urine Total Protein Vancomycin Trough Coronavirus (PCR) SARS-CoV-2 IgG Ab 07/11/20 07/11/20 07/11/20 09:11 09:11 09:11 WBC 15.8 H RBC 3.44 L Hgb Hct MCH MCHC RDW Plt Count Lymph % (Auto) Lymph # (Auto) Seg Neutrophils % Seg Neuts % (Manual) 92.0 H Lymphocytes % (Manual) 4.0 L Eosinophils % (Manual) Nucleated RBC % Seg Neutrophils # Seg Neutrophils # Man 14.5 H Lymphocytes # (Manual) 0.6 L Eosinophils # (Manual) PT INR D-Dimer 360.61 H ABG pH POC ABG pCO2 POC ABG pO2 ABG pO2 ABG HCO3 ABG O2 Saturation ABG Base Excess ABG Hemoglobin ABG Oxyhemoglobin ABG Sodium ABG Potassium ABG Chloride ABG Glucose Oxyhemoglobin Carboxyhemoglobin Sodium Potassium Chloride 107.1 H Carbon Dioxide BUN 22 H Creatinine Glucose 149 H POC Glucose Lactic Acid Calcium 7.8 L Ferritin AST ALT Lactate Dehydrogenase 483 H C-Reactive Protein 2.30 H Total Protein 4.9 L Albumin 3.0 L Triglycerides Arterial Blood Glucose Arterial Blood Ionized Calcium Urine Creatinine Urine Total Protein Vancomycin Trough Coronavirus (PCR) SARS-CoV-2 IgG Ab 07/11/20 07/11/20 07/11/20 09:11 12:16 17:55 WBC RBC Hgb Hct MCH MCHC RDW Plt Count Lymph % (Auto) Lymph # (Auto) Seg Neutrophils % Seg Neuts % (Manual) Lymphocytes % (Manual) Eosinophils % (Manual) Nucleated RBC % Seg Neutrophils # Seg Neutrophils # Man Lymphocytes # (Manual) Eosinophils # (Manual) PT INR D-Dimer ABG pH POC ABG pCO2 POC ABG pO2 ABG pO2 ABG HCO3 ABG O2 Saturation ABG Base Excess ABG Hemoglobin ABG Oxyhemoglobin ABG Sodium ABG Potassium ABG Chloride ABG Glucose Oxyhemoglobin Carboxyhemoglobin Sodium Potassium Chloride Carbon Dioxide BUN Creatinine Glucose POC Glucose 157 H 166 H Lactic Acid Calcium Ferritin 371.2 H AST ALT Lactate Dehydrogenase C-Reactive Protein Total Protein Albumin Triglycerides Arterial Blood Glucose Arterial Blood Ionized Calcium Urine Creatinine Urine Total Protein Vancomycin Trough Coronavirus (PCR) SARS-CoV-2 IgG Ab 07/12/20 07/12/20 07/12/20 00:32 04:00 04:00 WBC RBC 3.52 L Hgb Hct MCH MCHC RDW Plt Count Lymph % (Auto) Lymph # (Auto) Seg Neutrophils % Seg Neuts % (Manual) 90.0 H Lymphocytes % (Manual) 4.0 L Eosinophils % (Manual) Nucleated RBC % Seg Neutrophils # Seg Neutrophils # Man 9.5 H Lymphocytes # (Manual) 0.4 L Eosinophils # (Manual) PT INR D-Dimer ABG pH POC ABG pCO2 POC ABG pO2 ABG pO2 ABG HCO3 ABG O2 Saturation ABG Base Excess ABG Hemoglobin ABG Oxyhemoglobin ABG Sodium ABG Potassium ABG Chloride ABG Glucose Oxyhemoglobin Carboxyhemoglobin Sodium Potassium Chloride Carbon Dioxide 31 H BUN 21 H Creatinine Glucose 175 H POC Glucose 178 H Lactic Acid Calcium 8.0 L Ferritin AST ALT Lactate Dehydrogenase C-Reactive Protein Total Protein 5.4 L Albumin 3.0 L Triglycerides Arterial Blood Glucose Arterial Blood Ionized Calcium Urine Creatinine Urine Total Protein Vancomycin Trough Coronavirus (PCR) SARS-CoV-2 IgG Ab 07/12/20 07/12/20 07/12/20 04:01 05:47 12:09 WBC RBC Hgb Hct MCH MCHC RDW Plt Count Lymph % (Auto) Lymph # (Auto) Seg Neutrophils % Seg Neuts % (Manual) Lymphocytes % (Manual) Eosinophils % (Manual) Nucleated RBC % Seg Neutrophils # Seg Neutrophils # Man Lymphocytes # (Manual) Eosinophils # (Manual) PT INR D-Dimer ABG pH 7.465 H POC ABG pCO2 POC ABG pO2 ABG pO2 ABG HCO3 ABG O2 Saturation ABG Base Excess ABG Hemoglobin 10.6 L ABG Oxyhemoglobin ABG Sodium ABG Potassium ABG Chloride ABG Glucose 177 H Oxyhemoglobin Carboxyhemoglobin Sodium Potassium Chloride Carbon Dioxide BUN Creatinine Glucose POC Glucose 185 H 227 H Lactic Acid Calcium Ferritin AST ALT Lactate Dehydrogenase C-Reactive Protein Total Protein Albumin Triglycerides Arterial Blood Glucose 177 H Arterial Blood Ionized Calcium 4.5 L Urine Creatinine Urine Total Protein Vancomycin Trough Coronavirus (PCR) SARS-CoV-2 IgG Ab 07/12/20 07/12/20 07/13/20 17:34 23:57 05:06 WBC RBC Hgb Hct MCH MCHC RDW Plt Count Lymph % (Auto) Lymph # (Auto) Seg Neutrophils % Seg Neuts % (Manual) Lymphocytes % (Manual) Eosinophils % (Manual) Nucleated RBC % Seg Neutrophils # Seg Neutrophils # Man Lymphocytes # (Manual) Eosinophils # (Manual) PT INR D-Dimer ABG pH POC ABG pCO2 POC ABG pO2 ABG pO2 ABG HCO3 ABG O2 Saturation ABG Base Excess ABG Hemoglobin ABG Oxyhemoglobin ABG Sodium ABG Potassium ABG Chloride ABG Glucose Oxyhemoglobin Carboxyhemoglobin Sodium Potassium Chloride Carbon Dioxide BUN Creatinine Glucose POC Glucose 202 H 163 H 166 H Lactic Acid Calcium Ferritin AST ALT Lactate Dehydrogenase C-Reactive Protein Total Protein Albumin Triglycerides Arterial Blood Glucose Arterial Blood Ionized Calcium Urine Creatinine Urine Total Protein Vancomycin Trough Coronavirus (PCR) SARS-CoV-2 IgG Ab 07/13/20 07/13/20 07/13/20 07:20 07:20 07:20 WBC 20.5 H RBC Hgb Hct MCH MCHC RDW Plt Count Lymph % (Auto) Lymph # (Auto) Seg Neutrophils % Seg Neuts % (Manual) 93.0 H Lymphocytes % (Manual) 3.0 L Eosinophils % (Manual) Nucleated RBC % Seg Neutrophils # Seg Neutrophils # Man 19.1 H Lymphocytes # (Manual) 0.6 L Eosinophils # (Manual) PT INR D-Dimer 826.36 H ABG pH POC ABG pCO2 POC ABG pO2 ABG pO2 ABG HCO3 ABG O2 Saturation ABG Base Excess ABG Hemoglobin ABG Oxyhemoglobin ABG Sodium ABG Potassium ABG Chloride ABG Glucose Oxyhemoglobin Carboxyhemoglobin Sodium Potassium Chloride Carbon Dioxide 31 H BUN 25 H Creatinine Glucose 163 H POC Glucose Lactic Acid Calcium 8.1 L Ferritin AST ALT Lactate Dehydrogenase 512 H C-Reactive Protein 1.80 H Total Protein 5.8 L Albumin 3.2 L Triglycerides Arterial Blood Glucose Arterial Blood Ionized Calcium Urine Creatinine Urine Total Protein Vancomycin Trough Coronavirus (PCR) SARS-CoV-2 IgG Ab 07/13/20 07/13/20 07/13/20 07:20 11:37 17:20 WBC RBC Hgb Hct MCH MCHC RDW Plt Count Lymph % (Auto) Lymph # (Auto) Seg Neutrophils % Seg Neuts % (Manual) Lymphocytes % (Manual) Eosinophils % (Manual) Nucleated RBC % Seg Neutrophils # Seg Neutrophils # Man Lymphocytes # (Manual) Eosinophils # (Manual) PT INR D-Dimer ABG pH POC ABG pCO2 POC ABG pO2 ABG pO2 ABG HCO3 ABG O2 Saturation ABG Base Excess ABG Hemoglobin ABG Oxyhemoglobin ABG Sodium ABG Potassium ABG Chloride ABG Glucose Oxyhemoglobin Carboxyhemoglobin Sodium Potassium Chloride Carbon Dioxide BUN Creatinine Glucose POC Glucose 232 H 210 H Lactic Acid Calcium Ferritin 219.8 H AST ALT Lactate Dehydrogenase C-Reactive Protein Total Protein Albumin Triglycerides Arterial Blood Glucose Arterial Blood Ionized Calcium Urine Creatinine Urine Total Protein Vancomycin Trough Coronavirus (PCR) SARS-CoV-2 IgG Ab 07/13/20 07/13/20 07/14/20 23:57 Unknown 05:22 WBC RBC Hgb Hct MCH MCHC RDW Plt Count Lymph % (Auto) Lymph # (Auto) Seg Neutrophils % Seg Neuts % (Manual) Lymphocytes % (Manual) Eosinophils % (Manual) Nucleated RBC % Seg Neutrophils # Seg Neutrophils # Man Lymphocytes # (Manual) Eosinophils # (Manual) PT INR D-Dimer ABG pH 7.341 L POC ABG pCO2 POC ABG pO2 133.0 H ABG pO2 56.5 L ABG HCO3 29.7 H ABG O2 Saturation 89.3 L ABG Base Excess ABG Hemoglobin 11.0 L ABG Oxyhemoglobin ABG Sodium ABG Potassium ABG Chloride ABG Glucose 207 H Oxyhemoglobin 87.7 L Carboxyhemoglobin Sodium Potassium Chloride Carbon Dioxide BUN Creatinine Glucose POC Glucose 190 H Lactic Acid Calcium Ferritin AST ALT Lactate Dehydrogenase C-Reactive Protein Total Protein Albumin Triglycerides Arterial Blood Glucose 207 H Arterial Blood Ionized Calcium 4.5 L Urine Creatinine Urine Total Protein Vancomycin Trough Coronavirus (PCR) SARS-CoV-2 IgG Ab 07/14/20 07/14/20 07/14/20 05:54 11:16 17:50 WBC RBC Hgb Hct MCH MCHC RDW Plt Count Lymph % (Auto) Lymph # (Auto) Seg Neutrophils % Seg Neuts % (Manual) Lymphocytes % (Manual) Eosinophils % (Manual) Nucleated RBC % Seg Neutrophils # Seg Neutrophils # Man Lymphocytes # (Manual) Eosinophils # (Manual) PT INR D-Dimer ABG pH POC ABG pCO2 POC ABG pO2 ABG pO2 ABG HCO3 ABG O2 Saturation ABG Base Excess ABG Hemoglobin ABG Oxyhemoglobin ABG Sodium ABG Potassium ABG Chloride ABG Glucose Oxyhemoglobin Carboxyhemoglobin Sodium Potassium Chloride Carbon Dioxide BUN Creatinine Glucose POC Glucose 206 H 196 H 205 H Lactic Acid Calcium Ferritin AST ALT Lactate Dehydrogenase C-Reactive Protein Total Protein Albumin Triglycerides Arterial Blood Glucose Arterial Blood Ionized Calcium Urine Creatinine Urine Total Protein Vancomycin Trough Coronavirus (PCR) SARS-CoV-2 IgG Ab 07/14/20 07/15/20 07/15/20 23:28 03:16 06:12 WBC RBC Hgb Hct MCH MCHC RDW Plt Count Lymph % (Auto) Lymph # (Auto) Seg Neutrophils % Seg Neuts % (Manual) Lymphocytes % (Manual) Eosinophils % (Manual) Nucleated RBC % Seg Neutrophils # Seg Neutrophils # Man Lymphocytes # (Manual) Eosinophils # (Manual) PT INR D-Dimer ABG pH POC ABG pCO2 49.2 H POC ABG pO2 120.3 H ABG pO2 ABG HCO3 ABG O2 Saturation ABG Base Excess ABG Hemoglobin 9.5 L ABG Oxyhemoglobin ABG Sodium ABG Potassium ABG Chloride ABG Glucose 148 H Oxyhemoglobin Carboxyhemoglobin Sodium Potassium Chloride Carbon Dioxide BUN Creatinine Glucose POC Glucose 160 H 178 H Lactic Acid Calcium Ferritin AST ALT Lactate Dehydrogenase C-Reactive Protein Total Protein Albumin Triglycerides Arterial Blood Glucose 148 H Arterial Blood Ionized Calcium Urine Creatinine Urine Total Protein Vancomycin Trough Coronavirus (PCR) SARS-CoV-2 IgG Ab 07/15/20 07/15/20 07/15/20 09:00 12:32 14:30 WBC RBC Hgb Hct MCH MCHC RDW Plt Count Lymph % (Auto) Lymph # (Auto) Seg Neutrophils % Seg Neuts % (Manual) Lymphocytes % (Manual) Eosinophils % (Manual) Nucleated RBC % Seg Neutrophils # Seg Neutrophils # Man Lymphocytes # (Manual) Eosinophils # (Manual) PT INR D-Dimer ABG pH POC ABG pCO2 POC ABG pO2 ABG pO2 ABG HCO3 ABG O2 Saturation ABG Base Excess ABG Hemoglobin ABG Oxyhemoglobin ABG Sodium ABG Potassium ABG Chloride ABG Glucose Oxyhemoglobin Carboxyhemoglobin Sodium Potassium Chloride Carbon Dioxide BUN Creatinine Glucose POC Glucose 173 H Lactic Acid Calcium Ferritin AST ALT Lactate Dehydrogenase 531 H C-Reactive Protein Total Protein Albumin Triglycerides Arterial Blood Glucose Arterial Blood Ionized Calcium Urine Creatinine Urine Total Protein Vancomycin Trough Coronavirus (PCR) SARS-CoV-2 IgG Ab Reactive A 07/15/20 07/15/20 07/16/20 18:24 23:35 04:03 WBC RBC Hgb Hct MCH MCHC RDW Plt Count Lymph % (Auto) Lymph # (Auto) Seg Neutrophils % Seg Neuts % (Manual) Lymphocytes % (Manual) Eosinophils % (Manual) Nucleated RBC % Seg Neutrophils # Seg Neutrophils # Man Lymphocytes # (Manual) Eosinophils # (Manual) PT INR D-Dimer ABG pH POC ABG pCO2 POC ABG pO2 ABG pO2 72.7 L ABG HCO3 35.5 H ABG O2 Saturation ABG Base Excess 9.4 H ABG Hemoglobin 10.6 L ABG Oxyhemoglobin ABG Sodium ABG Potassium ABG Chloride ABG Glucose Oxyhemoglobin 93.6 L Carboxyhemoglobin Sodium Potassium Chloride Carbon Dioxide BUN Creatinine Glucose POC Glucose 173 H 181 H Lactic Acid Calcium Ferritin AST ALT Lactate Dehydrogenase C-Reactive Protein Total Protein Albumin Triglycerides Arterial Blood Glucose Arterial Blood Ionized Calcium Urine Creatinine Urine Total Protein Vancomycin Trough Coronavirus (PCR) SARS-CoV-2 IgG Ab 07/16/20 07/16/20 07/16/20 05:35 09:00 09:00 WBC 16.5 H RBC 3.59 L Hgb Hct MCH MCHC RDW Plt Count Lymph % (Auto) Lymph # (Auto) Seg Neutrophils % Seg Neuts % (Manual) 96.0 H Lymphocytes % (Manual) 3.0 L Eosinophils % (Manual) Nucleated RBC % Seg Neutrophils # Seg Neutrophils # Man 15.8 H Lymphocytes # (Manual) 0.5 L Eosinophils # (Manual) PT INR D-Dimer ABG pH POC ABG pCO2 POC ABG pO2 ABG pO2 ABG HCO3 ABG O2 Saturation ABG Base Excess ABG Hemoglobin ABG Oxyhemoglobin ABG Sodium ABG Potassium ABG Chloride ABG Glucose Oxyhemoglobin Carboxyhemoglobin Sodium Potassium Chloride Carbon Dioxide 39 H D BUN 25 H Creatinine 0.4 L Glucose 167 H POC Glucose 129 H Lactic Acid Calcium 8.3 L Ferritin AST ALT Lactate Dehydrogenase C-Reactive Protein Total Protein Albumin Triglycerides Arterial Blood Glucose Arterial Blood Ionized Calcium Urine Creatinine Urine Total Protein Vancomycin Trough Coronavirus (PCR) SARS-CoV-2 IgG Ab 07/16/20 07/16/20 07/17/20 12:32 18:28 00:09 WBC RBC Hgb Hct MCH MCHC RDW Plt Count Lymph % (Auto) Lymph # (Auto) Seg Neutrophils % Seg Neuts % (Manual) Lymphocytes % (Manual) Eosinophils % (Manual) Nucleated RBC % Seg Neutrophils # Seg Neutrophils # Man Lymphocytes # (Manual) Eosinophils # (Manual) PT INR D-Dimer ABG pH POC ABG pCO2 POC ABG pO2 ABG pO2 ABG HCO3 ABG O2 Saturation ABG Base Excess ABG Hemoglobin ABG Oxyhemoglobin ABG Sodium ABG Potassium ABG Chloride ABG Glucose Oxyhemoglobin Carboxyhemoglobin Sodium Potassium Chloride Carbon Dioxide BUN Creatinine Glucose POC Glucose 187 H 174 H 184 H Lactic Acid Calcium Ferritin AST ALT Lactate Dehydrogenase C-Reactive Protein Total Protein Albumin Triglycerides Arterial Blood Glucose Arterial Blood Ionized Calcium Urine Creatinine Urine Total Protein Vancomycin Trough Coronavirus (PCR) SARS-CoV-2 IgG Ab 07/17/20 07/17/20 07/17/20 04:30 05:47 13:03 WBC RBC Hgb Hct MCH MCHC RDW Plt Count Lymph % (Auto) Lymph # (Auto) Seg Neutrophils % Seg Neuts % (Manual) Lymphocytes % (Manual) Eosinophils % (Manual) Nucleated RBC % Seg Neutrophils # Seg Neutrophils # Man Lymphocytes # (Manual) Eosinophils # (Manual) PT INR D-Dimer ABG pH POC ABG pCO2 POC ABG pO2 ABG pO2 ABG HCO3 38.1 H ABG O2 Saturation ABG Base Excess 11.3 H ABG Hemoglobin 10.5 L ABG Oxyhemoglobin ABG Sodium ABG Potassium ABG Chloride ABG Glucose Oxyhemoglobin Carboxyhemoglobin Sodium Potassium Chloride Carbon Dioxide BUN Creatinine Glucose POC Glucose 135 H 210 H Lactic Acid Calcium Ferritin AST ALT Lactate Dehydrogenase C-Reactive Protein Total Protein Albumin Triglycerides Arterial Blood Glucose Arterial Blood Ionized Calcium Urine Creatinine Urine Total Protein Vancomycin Trough Coronavirus (PCR) SARS-CoV-2 IgG Ab 07/17/20 07/17/20 07/18/20 16:50 23:39 04:01 WBC RBC Hgb Hct MCH MCHC RDW Plt Count Lymph % (Auto) Lymph # (Auto) Seg Neutrophils % Seg Neuts % (Manual) Lymphocytes % (Manual) Eosinophils % (Manual) Nucleated RBC % Seg Neutrophils # Seg Neutrophils # Man Lymphocytes # (Manual) Eosinophils # (Manual) PT INR D-Dimer ABG pH POC ABG pCO2 56.8 H POC ABG pO2 61.9 L ABG pO2 ABG HCO3 ABG O2 Saturation ABG Base Excess ABG Hemoglobin 11.7 L ABG Oxyhemoglobin ABG Sodium 134.2 L ABG Potassium 4.7 H ABG Chloride 97.0 L ABG Glucose 173 H Oxyhemoglobin Carboxyhemoglobin Sodium Potassium Chloride Carbon Dioxide BUN Creatinine Glucose POC Glucose 193 H 163 H Lactic Acid Calcium Ferritin AST ALT Lactate Dehydrogenase C-Reactive Protein Total Protein Albumin Triglycerides Arterial Blood Glucose 173 H Arterial Blood Ionized Calcium Urine Creatinine Urine Total Protein Vancomycin Trough Coronavirus (PCR) SARS-CoV-2 IgG Ab 07/18/20 07/18/20 07/18/20 05:41 12:03 17:26 WBC RBC Hgb Hct MCH MCHC RDW Plt Count Lymph % (Auto) Lymph # (Auto) Seg Neutrophils % Seg Neuts % (Manual) Lymphocytes % (Manual) Eosinophils % (Manual) Nucleated RBC % Seg Neutrophils # Seg Neutrophils # Man Lymphocytes # (Manual) Eosinophils # (Manual) PT INR D-Dimer ABG pH POC ABG pCO2 POC ABG pO2 ABG pO2 ABG HCO3 ABG O2 Saturation ABG Base Excess ABG Hemoglobin ABG Oxyhemoglobin ABG Sodium ABG Potassium ABG Chloride ABG Glucose Oxyhemoglobin Carboxyhemoglobin Sodium Potassium Chloride Carbon Dioxide BUN Creatinine Glucose POC Glucose 153 H 177 H 160 H Lactic Acid Calcium Ferritin AST ALT Lactate Dehydrogenase C-Reactive Protein Total Protein Albumin Triglycerides Arterial Blood Glucose Arterial Blood Ionized Calcium Urine Creatinine Urine Total Protein Vancomycin Trough Coronavirus (PCR) SARS-CoV-2 IgG Ab 07/18/20 07/19/20 07/19/20 23:58 04:15 05:05 WBC RBC Hgb Hct MCH MCHC RDW Plt Count Lymph % (Auto) Lymph # (Auto) Seg Neutrophils % Seg Neuts % (Manual) Lymphocytes % (Manual) Eosinophils % (Manual) Nucleated RBC % Seg Neutrophils # Seg Neutrophils # Man Lymphocytes # (Manual) Eosinophils # (Manual) PT INR D-Dimer ABG pH 7.465 H POC ABG pCO2 49.1 H POC ABG pO2 49.4 L ABG pO2 ABG HCO3 ABG O2 Saturation ABG Base Excess ABG Hemoglobin 11.6 L ABG Oxyhemoglobin ABG Sodium 132.3 L ABG Potassium ABG Chloride 97.0 L ABG Glucose 148 H Oxyhemoglobin Carboxyhemoglobin Sodium Potassium Chloride Carbon Dioxide BUN Creatinine Glucose POC Glucose 144 H 117 H Lactic Acid Calcium Ferritin AST ALT Lactate Dehydrogenase C-Reactive Protein Total Protein Albumin Triglycerides Arterial Blood Glucose 148 H Arterial Blood Ionized Calcium Urine Creatinine Urine Total Protein Vancomycin Trough Coronavirus (PCR) SARS-CoV-2 IgG Ab 07/19/20 07/19/20 07/19/20 08:30 08:30 13:21 WBC 17.2 H RBC 3.59 L Hgb Hct MCH MCHC RDW Plt Count Lymph % (Auto) Lymph # (Auto) Seg Neutrophils % Seg Neuts % (Manual) Lymphocytes % (Manual) Eosinophils % (Manual) Nucleated RBC % Seg Neutrophils # Seg Neutrophils # Man Lymphocytes # (Manual) Eosinophils # (Manual) PT INR D-Dimer ABG pH POC ABG pCO2 POC ABG pO2 ABG pO2 ABG HCO3 ABG O2 Saturation ABG Base Excess ABG Hemoglobin ABG Oxyhemoglobin ABG Sodium ABG Potassium ABG Chloride ABG Glucose Oxyhemoglobin Carboxyhemoglobin Sodium Potassium Chloride 95.7 L Carbon Dioxide 37 H BUN 20 H Creatinine 0.4 L Glucose 125 H POC Glucose 137 H Lactic Acid Calcium 8.1 L Ferritin AST ALT Lactate Dehydrogenase C-Reactive Protein Total Protein Albumin Triglycerides Arterial Blood Glucose Arterial Blood Ionized Calcium Urine Creatinine Urine Total Protein Vancomycin Trough Coronavirus (PCR) SARS-CoV-2 IgG Ab 07/19/20 07/19/20 07/20/20 16:29 17:28 00:25 WBC RBC Hgb Hct MCH MCHC RDW Plt Count Lymph % (Auto) Lymph # (Auto) Seg Neutrophils % Seg Neuts % (Manual) Lymphocytes % (Manual) Eosinophils % (Manual) Nucleated RBC % Seg Neutrophils # Seg Neutrophils # Man Lymphocytes # (Manual) Eosinophils # (Manual) PT INR D-Dimer ABG pH POC ABG pCO2 53.4 H POC ABG pO2 71.0 L ABG pO2 ABG HCO3 ABG O2 Saturation ABG Base Excess ABG Hemoglobin 11.2 L ABG Oxyhemoglobin 93.6 L ABG Sodium 130.9 L ABG Potassium ABG Chloride 95.0 L ABG Glucose 188 H Oxyhemoglobin Carboxyhemoglobin Sodium Potassium Chloride Carbon Dioxide BUN Creatinine Glucose POC Glucose 174 H 188 H Lactic Acid Calcium Ferritin AST ALT Lactate Dehydrogenase C-Reactive Protein Total Protein Albumin Triglycerides Arterial Blood Glucose 188 H Arterial Blood Ionized Calcium 4.4 L Urine Creatinine Urine Total Protein Vancomycin Trough Coronavirus (PCR) SARS-CoV-2 IgG Ab 07/20/20 07/20/20 07/20/20 04:14 05:23 12:12 WBC RBC Hgb Hct MCH MCHC RDW Plt Count Lymph % (Auto) Lymph # (Auto) Seg Neutrophils % Seg Neuts % (Manual) Lymphocytes % (Manual) Eosinophils % (Manual) Nucleated RBC % Seg Neutrophils # Seg Neutrophils # Man Lymphocytes # (Manual) Eosinophils # (Manual) PT INR D-Dimer ABG pH POC ABG pCO2 52.7 H POC ABG pO2 59.5 L ABG pO2 ABG HCO3 ABG O2 Saturation ABG Base Excess ABG Hemoglobin 10.6 L ABG Oxyhemoglobin ABG Sodium 134.4 L ABG Potassium ABG Chloride ABG Glucose 176 H Oxyhemoglobin Carboxyhemoglobin Sodium Potassium Chloride Carbon Dioxide BUN Creatinine Glucose POC Glucose 212 H 190 H Lactic Acid Calcium Ferritin AST ALT Lactate Dehydrogenase C-Reactive Protein Total Protein Albumin Triglycerides Arterial Blood Glucose 176 H Arterial Blood Ionized Calcium 4.5 L Urine Creatinine Urine Total Protein Vancomycin Trough Coronavirus (PCR) SARS-CoV-2 IgG Ab 07/20/20 07/21/20 07/21/20 16:59 00:01 04:30 WBC RBC Hgb Hct MCH MCHC RDW Plt Count Lymph % (Auto) Lymph # (Auto) Seg Neutrophils % Seg Neuts % (Manual) Lymphocytes % (Manual) Eosinophils % (Manual) Nucleated RBC % Seg Neutrophils # Seg Neutrophils # Man Lymphocytes # (Manual) Eosinophils # (Manual) PT INR D-Dimer ABG pH 7.468 H POC ABG pCO2 POC ABG pO2 63.3 L ABG pO2 ABG HCO3 ABG O2 Saturation ABG Base Excess ABG Hemoglobin 11 L ABG Oxyhemoglobin ABG Sodium 135.0 L ABG Potassium ABG Chloride ABG Glucose 204 H Oxyhemoglobin Carboxyhemoglobin Sodium Potassium Chloride Carbon Dioxide BUN Creatinine Glucose POC Glucose 201 H 177 H Lactic Acid Calcium Ferritin AST ALT Lactate Dehydrogenase C-Reactive Protein Total Protein Albumin Triglycerides Arterial Blood Glucose 204 H Arterial Blood Ionized Calcium 4.5 L Urine Creatinine Urine Total Protein Vancomycin Trough Coronavirus (PCR) SARS-CoV-2 IgG Ab 07/21/20 07/21/20 07/21/20 05:26 11:50 17:16 WBC RBC Hgb Hct MCH MCHC RDW Plt Count Lymph % (Auto) Lymph # (Auto) Seg Neutrophils % Seg Neuts % (Manual) Lymphocytes % (Manual) Eosinophils % (Manual) Nucleated RBC % Seg Neutrophils # Seg Neutrophils # Man Lymphocytes # (Manual) Eosinophils # (Manual) PT INR D-Dimer ABG pH POC ABG pCO2 POC ABG pO2 ABG pO2 ABG HCO3 ABG O2 Saturation ABG Base Excess ABG Hemoglobin ABG Oxyhemoglobin ABG Sodium ABG Potassium ABG Chloride ABG Glucose Oxyhemoglobin Carboxyhemoglobin Sodium Potassium Chloride Carbon Dioxide BUN Creatinine Glucose POC Glucose 175 H 157 H 148 H Lactic Acid Calcium Ferritin AST ALT Lactate Dehydrogenase C-Reactive Protein Total Protein Albumin Triglycerides Arterial Blood Glucose Arterial Blood Ionized Calcium Urine Creatinine Urine Total Protein Vancomycin Trough Coronavirus (PCR) SARS-CoV-2 IgG Ab 07/22/20 07/22/20 07/22/20 00:01 03:26 05:16 WBC RBC Hgb Hct MCH MCHC RDW Plt Count Lymph % (Auto) Lymph # (Auto) Seg Neutrophils % Seg Neuts % (Manual) Lymphocytes % (Manual) Eosinophils % (Manual) Nucleated RBC % Seg Neutrophils # Seg Neutrophils # Man Lymphocytes # (Manual) Eosinophils # (Manual) PT INR D-Dimer ABG pH POC ABG pCO2 POC ABG pO2 54.2 L ABG pO2 ABG HCO3 ABG O2 Saturation ABG Base Excess ABG Hemoglobin 10.9 L ABG Oxyhemoglobin ABG Sodium 133.7 L ABG Potassium ABG Chloride ABG Glucose 217 H Oxyhemoglobin Carboxyhemoglobin Sodium Potassium Chloride Carbon Dioxide BUN Creatinine Glucose POC Glucose 172 H 182 H Lactic Acid Calcium Ferritin AST ALT Lactate Dehydrogenase C-Reactive Protein Total Protein Albumin Triglycerides Arterial Blood Glucose 217 H Arterial Blood Ionized Calcium 4.5 L Urine Creatinine Urine Total Protein Vancomycin Trough Coronavirus (PCR) SARS-CoV-2 IgG Ab 07/22/20 07/22/20 07/23/20 11:43 17:08 04:00 WBC 11.6 H RBC 3.54 L Hgb Hct MCH MCHC RDW Plt Count Lymph % (Auto) Lymph # (Auto) Seg Neutrophils % Seg Neuts % (Manual) 94.0 H Lymphocytes % (Manual) 5.0 L Eosinophils % (Manual) Nucleated RBC % Seg Neutrophils # Seg Neutrophils # Man 10.9 H Lymphocytes # (Manual) 0.6 L Eosinophils # (Manual) PT INR D-Dimer ABG pH POC ABG pCO2 POC ABG pO2 ABG pO2 ABG HCO3 ABG O2 Saturation ABG Base Excess ABG Hemoglobin ABG Oxyhemoglobin ABG Sodium ABG Potassium ABG Chloride ABG Glucose Oxyhemoglobin Carboxyhemoglobin Sodium Potassium Chloride Carbon Dioxide BUN Creatinine Glucose POC Glucose 159 H 163 H Lactic Acid Calcium Ferritin AST ALT Lactate Dehydrogenase C-Reactive Protein Total Protein Albumin Triglycerides Arterial Blood Glucose Arterial Blood Ionized Calcium Urine Creatinine Urine Total Protein Vancomycin Trough Coronavirus (PCR) SARS-CoV-2 IgG Ab 07/23/20 07/23/20 07/23/20 04:00 04:53 04:54 WBC RBC Hgb Hct MCH MCHC RDW Plt Count Lymph % (Auto) Lymph # (Auto) Seg Neutrophils % Seg Neuts % (Manual) Lymphocytes % (Manual) Eosinophils % (Manual) Nucleated RBC % Seg Neutrophils # Seg Neutrophils # Man Lymphocytes # (Manual) Eosinophils # (Manual) PT INR D-Dimer ABG pH 7.453 H POC ABG pCO2 POC ABG pO2 ABG pO2 ABG HCO3 32.4 H ABG O2 Saturation ABG Base Excess 7.5 H ABG Hemoglobin 10.7 L ABG Oxyhemoglobin ABG Sodium ABG Potassium ABG Chloride ABG Glucose Oxyhemoglobin Carboxyhemoglobin Sodium Potassium Chloride Carbon Dioxide 35 H BUN Creatinine 0.4 L Glucose 112 H POC Glucose 169 H Lactic Acid Calcium 8.2 L Ferritin AST ALT Lactate Dehydrogenase C-Reactive Protein Total Protein Albumin Triglycerides Arterial Blood Glucose Arterial Blood Ionized Calcium Urine Creatinine Urine Total Protein Vancomycin Trough Coronavirus (PCR) SARS-CoV-2 IgG Ab 07/23/20 07/23/20 07/23/20 11:50 23:19 Unknown WBC RBC Hgb Hct MCH MCHC RDW Plt Count Lymph % (Auto) Lymph # (Auto) Seg Neutrophils % Seg Neuts % (Manual) Lymphocytes % (Manual) Eosinophils % (Manual) Nucleated RBC % Seg Neutrophils # Seg Neutrophils # Man Lymphocytes # (Manual) Eosinophils # (Manual) PT INR D-Dimer ABG pH POC ABG pCO2 POC ABG pO2 ABG pO2 ABG HCO3 ABG O2 Saturation ABG Base Excess ABG Hemoglobin ABG Oxyhemoglobin ABG Sodium ABG Potassium ABG Chloride ABG Glucose Oxyhemoglobin Carboxyhemoglobin Sodium Potassium Chloride Carbon Dioxide BUN Creatinine Glucose POC Glucose 118 H 168 H Lactic Acid Calcium Ferritin AST ALT Lactate Dehydrogenase C-Reactive Protein Total Protein Albumin Triglycerides Arterial Blood Glucose Arterial Blood Ionized Calcium Urine Creatinine Urine Total Protein Vancomycin Trough Coronavirus (PCR) Positive A SARS-CoV-2 IgG Ab 07/24/20 07/24/20 07/24/20 04:11 05:37 11:42 WBC RBC Hgb Hct MCH MCHC RDW Plt Count Lymph % (Auto) Lymph # (Auto) Seg Neutrophils % Seg Neuts % (Manual) Lymphocytes % (Manual) Eosinophils % (Manual) Nucleated RBC % Seg Neutrophils # Seg Neutrophils # Man Lymphocytes # (Manual) Eosinophils # (Manual) PT INR D-Dimer ABG pH POC ABG pCO2 POC ABG pO2 ABG pO2 54.4 L ABG HCO3 34.3 H ABG O2 Saturation 89.0 L ABG Base Excess 8.5 H ABG Hemoglobin 11.0 L ABG Oxyhemoglobin ABG Sodium ABG Potassium ABG Chloride ABG Glucose Oxyhemoglobin 87.0 L Carboxyhemoglobin Sodium Potassium Chloride Carbon Dioxide BUN Creatinine Glucose POC Glucose 115 H 166 H Lactic Acid Calcium Ferritin AST ALT Lactate Dehydrogenase C-Reactive Protein Total Protein Albumin Triglycerides Arterial Blood Glucose Arterial Blood Ionized Calcium Urine Creatinine Urine Total Protein Vancomycin Trough Coronavirus (PCR) SARS-CoV-2 IgG Ab 07/24/20 07/24/20 07/25/20 17:39 23:38 03:53 WBC RBC Hgb Hct MCH MCHC RDW Plt Count Lymph % (Auto) Lymph # (Auto) Seg Neutrophils % Seg Neuts % (Manual) Lymphocytes % (Manual) Eosinophils % (Manual) Nucleated RBC % Seg Neutrophils # Seg Neutrophils # Man Lymphocytes # (Manual) Eosinophils # (Manual) PT INR D-Dimer ABG pH POC ABG pCO2 POC ABG pO2 ABG pO2 175.9 H ABG HCO3 34.0 H ABG O2 Saturation 99.1 H ABG Base Excess 8.2 H ABG Hemoglobin 10.6 L ABG Oxyhemoglobin ABG Sodium ABG Potassium ABG Chloride ABG Glucose Oxyhemoglobin Carboxyhemoglobin Sodium Potassium Chloride Carbon Dioxide BUN Creatinine Glucose POC Glucose 150 H 139 H Lactic Acid Calcium Ferritin AST ALT Lactate Dehydrogenase C-Reactive Protein Total Protein Albumin Triglycerides Arterial Blood Glucose Arterial Blood Ionized Calcium Urine Creatinine Urine Total Protein Vancomycin Trough Coronavirus (PCR) SARS-CoV-2 IgG Ab 07/25/20 07/25/20 07/25/20 05:47 12:09 23:46 WBC RBC Hgb Hct MCH MCHC RDW Plt Count Lymph % (Auto) Lymph # (Auto) Seg Neutrophils % Seg Neuts % (Manual) Lymphocytes % (Manual) Eosinophils % (Manual) Nucleated RBC % Seg Neutrophils # Seg Neutrophils # Man Lymphocytes # (Manual) Eosinophils # (Manual) PT INR D-Dimer ABG pH POC ABG pCO2 POC ABG pO2 ABG pO2 ABG HCO3 ABG O2 Saturation ABG Base Excess ABG Hemoglobin ABG Oxyhemoglobin ABG Sodium ABG Potassium ABG Chloride ABG Glucose Oxyhemoglobin Carboxyhemoglobin Sodium Potassium Chloride Carbon Dioxide BUN Creatinine Glucose POC Glucose 144 H 152 H 116 H Lactic Acid Calcium Ferritin AST ALT Lactate Dehydrogenase C-Reactive Protein Total Protein Albumin Triglycerides Arterial Blood Glucose Arterial Blood Ionized Calcium Urine Creatinine Urine Total Protein Vancomycin Trough Coronavirus (PCR) SARS-CoV-2 IgG Ab 07/26/20 07/26/20 07/26/20 03:48 05:36 11:28 WBC RBC Hgb Hct MCH MCHC RDW Plt Count Lymph % (Auto) Lymph # (Auto) Seg Neutrophils % Seg Neuts % (Manual) Lymphocytes % (Manual) Eosinophils % (Manual) Nucleated RBC % Seg Neutrophils # Seg Neutrophils # Man Lymphocytes # (Manual) Eosinophils # (Manual) PT INR D-Dimer ABG pH POC ABG pCO2 POC ABG pO2 ABG pO2 73.4 L ABG HCO3 35.0 H ABG O2 Saturation ABG Base Excess 8.3 H ABG Hemoglobin 9.8 L ABG Oxyhemoglobin ABG Sodium ABG Potassium ABG Chloride ABG Glucose Oxyhemoglobin 93.7 L Carboxyhemoglobin Sodium Potassium Chloride Carbon Dioxide BUN Creatinine Glucose POC Glucose 136 H 145 H Lactic Acid Calcium Ferritin AST ALT Lactate Dehydrogenase C-Reactive Protein Total Protein Albumin Triglycerides Arterial Blood Glucose Arterial Blood Ionized Calcium Urine Creatinine Urine Total Protein Vancomycin Trough Coronavirus (PCR) SARS-CoV-2 IgG Ab 07/26/20 07/26/20 07/26/20 14:23 17:19 23:33 WBC 12.0 H RBC 3.12 L Hgb 9.5 L Hct 28.6 L MCH MCHC RDW Plt Count Lymph % (Auto) 4.2 L Lymph # (Auto) 0.5 L Seg Neutrophils % 89.8 H Seg Neuts % (Manual) Lymphocytes % (Manual) Eosinophils % (Manual) Nucleated RBC % Seg Neutrophils # 10.8 H Seg Neutrophils # Man Lymphocytes # (Manual) Eosinophils # (Manual) PT INR D-Dimer ABG pH POC ABG pCO2 POC ABG pO2 ABG pO2 ABG HCO3 ABG O2 Saturation ABG Base Excess ABG Hemoglobin ABG Oxyhemoglobin ABG Sodium ABG Potassium ABG Chloride ABG Glucose Oxyhemoglobin Carboxyhemoglobin Sodium Potassium Chloride Carbon Dioxide BUN Creatinine Glucose POC Glucose 202 H 122 H Lactic Acid Calcium Ferritin AST ALT Lactate Dehydrogenase C-Reactive Protein Total Protein Albumin Triglycerides Arterial Blood Glucose Arterial Blood Ionized Calcium Urine Creatinine Urine Total Protein Vancomycin Trough Coronavirus (PCR) SARS-CoV-2 IgG Ab 07/27/20 07/27/20 07/27/20 04:30 05:54 12:06 WBC RBC Hgb Hct MCH MCHC RDW Plt Count Lymph % (Auto) Lymph # (Auto) Seg Neutrophils % Seg Neuts % (Manual) Lymphocytes % (Manual) Eosinophils % (Manual) Nucleated RBC % Seg Neutrophils # Seg Neutrophils # Man Lymphocytes # (Manual) Eosinophils # (Manual) PT INR D-Dimer ABG pH POC ABG pCO2 POC ABG pO2 ABG pO2 49.0 L ABG HCO3 35.7 H ABG O2 Saturation 87.6 L ABG Base Excess 10.1 H ABG Hemoglobin 11.5 L ABG Oxyhemoglobin ABG Sodium ABG Potassium ABG Chloride ABG Glucose Oxyhemoglobin 85.4 L Carboxyhemoglobin Sodium Potassium Chloride Carbon Dioxide BUN Creatinine Glucose POC Glucose 164 H 149 H Lactic Acid Calcium Ferritin AST ALT Lactate Dehydrogenase C-Reactive Protein Total Protein Albumin Triglycerides Arterial Blood Glucose Arterial Blood Ionized Calcium Urine Creatinine Urine Total Protein Vancomycin Trough Coronavirus (PCR) SARS-CoV-2 IgG Ab 07/27/20 07/27/20 07/27/20 13:00 14:18 14:18 WBC 12.2 H RBC 3.33 L Hgb 10.0 L Hct MCH MCHC RDW Plt Count Lymph % (Auto) Lymph # (Auto) Seg Neutrophils % Seg Neuts % (Manual) 90.0 H Lymphocytes % (Manual) 7.0 L Eosinophils % (Manual) Nucleated RBC % Seg Neutrophils # Seg Neutrophils # Man 11.0 H Lymphocytes # (Manual) 0.9 L Eosinophils # (Manual) PT INR D-Dimer ABG pH 7.313 L POC ABG pCO2 POC ABG pO2 ABG pO2 107.5 H ABG HCO3 37.6 H ABG O2 Saturation ABG Base Excess 8.1 H ABG Hemoglobin 10.1 L ABG Oxyhemoglobin ABG Sodium ABG Potassium ABG Chloride ABG Glucose Oxyhemoglobin Carboxyhemoglobin Sodium Potassium Chloride 97.6 L Carbon Dioxide 35 H BUN 18 H Creatinine Glucose 135 H POC Glucose Lactic Acid Calcium 8.3 L Ferritin AST ALT Lactate Dehydrogenase C-Reactive Protein Total Protein Albumin Triglycerides Arterial Blood Glucose Arterial Blood Ionized Calcium Urine Creatinine Urine Total Protein Vancomycin Trough Coronavirus (PCR) SARS-CoV-2 IgG Ab 07/27/20 07/27/20 07/28/20 17:09 23:14 04:15 WBC RBC Hgb Hct MCH MCHC RDW Plt Count Lymph % (Auto) Lymph # (Auto) Seg Neutrophils % Seg Neuts % (Manual) Lymphocytes % (Manual) Eosinophils % (Manual) Nucleated RBC % Seg Neutrophils # Seg Neutrophils # Man Lymphocytes # (Manual) Eosinophils # (Manual) PT INR D-Dimer ABG pH 7.317 L POC ABG pCO2 POC ABG pO2 ABG pO2 130.3 H ABG HCO3 40.9 H ABG O2 Saturation ABG Base Excess 13.5 H ABG Hemoglobin 5.8 L ABG Oxyhemoglobin ABG Sodium ABG Potassium ABG Chloride ABG Glucose Oxyhemoglobin Carboxyhemoglobin Sodium Potassium Chloride Carbon Dioxide BUN Creatinine Glucose POC Glucose 115 H 139 H Lactic Acid Calcium Ferritin AST ALT Lactate Dehydrogenase C-Reactive Protein Total Protein Albumin Triglycerides Arterial Blood Glucose Arterial Blood Ionized Calcium Urine Creatinine Urine Total Protein Vancomycin Trough Coronavirus (PCR) SARS-CoV-2 IgG Ab 07/28/20 07/28/20 07/28/20 05:34 09:20 09:20 WBC RBC 2.89 L Hgb 9.5 L Hct 26.6 L MCH 33 H MCHC 36 H RDW Plt Count 123 L Lymph % (Auto) Lymph # (Auto) Seg Neutrophils % Seg Neuts % (Manual) 89.0 H Lymphocytes % (Manual) 5.0 L Eosinophils % (Manual) Nucleated RBC % Seg Neutrophils # Seg Neutrophils # Man 8.6 H Lymphocytes # (Manual) 0.5 L Eosinophils # (Manual) PT INR D-Dimer ABG pH POC ABG pCO2 POC ABG pO2 ABG pO2 ABG HCO3 ABG O2 Saturation ABG Base Excess ABG Hemoglobin ABG Oxyhemoglobin ABG Sodium ABG Potassium ABG Chloride ABG Glucose Oxyhemoglobin Carboxyhemoglobin Sodium 134 L Potassium Chloride 95.6 L Carbon Dioxide 39 H BUN Creatinine 0.3 L Glucose 131 H POC Glucose 130 H Lactic Acid Calcium 7.9 L Ferritin AST ALT Lactate Dehydrogenase C-Reactive Protein Total Protein Albumin Triglycerides Arterial Blood Glucose Arterial Blood Ionized Calcium Urine Creatinine Urine Total Protein Vancomycin Trough Coronavirus (PCR) SARS-CoV-2 IgG Ab 07/28/20 07/28/20 07/28/20 11:50 18:36 23:22 WBC RBC Hgb Hct MCH MCHC RDW Plt Count Lymph % (Auto) Lymph # (Auto) Seg Neutrophils % Seg Neuts % (Manual) Lymphocytes % (Manual) Eosinophils % (Manual) Nucleated RBC % Seg Neutrophils # Seg Neutrophils # Man Lymphocytes # (Manual) Eosinophils # (Manual) PT INR D-Dimer ABG pH POC ABG pCO2 POC ABG pO2 ABG pO2 ABG HCO3 ABG O2 Saturation ABG Base Excess ABG Hemoglobin ABG Oxyhemoglobin ABG Sodium ABG Potassium ABG Chloride ABG Glucose Oxyhemoglobin Carboxyhemoglobin Sodium Potassium Chloride Carbon Dioxide BUN Creatinine Glucose POC Glucose 128 H 119 H 122 H Lactic Acid Calcium Ferritin AST ALT Lactate Dehydrogenase C-Reactive Protein Total Protein Albumin Triglycerides Arterial Blood Glucose Arterial Blood Ionized Calcium Urine Creatinine Urine Total Protein Vancomycin Trough Coronavirus (PCR) SARS-CoV-2 IgG Ab 07/29/20 07/29/20 07/29/20 03:18 07:54 07:54 WBC 11.1 H RBC 3.49 L Hgb Hct MCH MCHC RDW Plt Count 139 L Lymph % (Auto) Lymph # (Auto) Seg Neutrophils % Seg Neuts % (Manual) 90.0 H Lymphocytes % (Manual) 1.0 L Eosinophils % (Manual) 5.0 H Nucleated RBC % Seg Neutrophils # Seg Neutrophils # Man 10.0 H Lymphocytes # (Manual) 0.1 L Eosinophils # (Manual) 0.6 H PT INR D-Dimer ABG pH POC ABG pCO2 69.5 H POC ABG pO2 109.3 H ABG pO2 ABG HCO3 ABG O2 Saturation ABG Base Excess ABG Hemoglobin 10.8 L ABG Oxyhemoglobin ABG Sodium ABG Potassium ABG Chloride 95.0 L ABG Glucose 138 H Oxyhemoglobin Carboxyhemoglobin Sodium Potassium Chloride 94.5 L Carbon Dioxide 40 H BUN Creatinine 0.5 L D Glucose 104 H POC Glucose Lactic Acid Calcium Ferritin AST ALT Lactate Dehydrogenase C-Reactive Protein Total Protein Albumin Triglycerides Arterial Blood Glucose 138 H Arterial Blood Ionized Calcium Urine Creatinine Urine Total Protein Vancomycin Trough Coronavirus (PCR) SARS-CoV-2 IgG Ab 07/29/20 07/29/20 07/29/20 11:05 18:17 19:41 WBC RBC Hgb Hct MCH MCHC RDW Plt Count Lymph % (Auto) Lymph # (Auto) Seg Neutrophils % Seg Neuts % (Manual) Lymphocytes % (Manual) Eosinophils % (Manual) Nucleated RBC % Seg Neutrophils # Seg Neutrophils # Man Lymphocytes # (Manual) Eosinophils # (Manual) PT INR D-Dimer ABG pH 7.305 L POC ABG pCO2 73.3 H 66.7 H POC ABG pO2 28.2 L 32.7 L ABG pO2 ABG HCO3 ABG O2 Saturation ABG Base Excess ABG Hemoglobin 11.8 L 11.5 L ABG Oxyhemoglobin ABG Sodium ABG Potassium ABG Chloride 94.0 L 95.0 L ABG Glucose 207 H 141 H Oxyhemoglobin Carboxyhemoglobin Sodium Potassium Chloride Carbon Dioxide BUN Creatinine Glucose POC Glucose 113 H Lactic Acid Calcium Ferritin AST ALT Lactate Dehydrogenase C-Reactive Protein Total Protein Albumin Triglycerides Arterial Blood Glucose 207 H 141 H Arterial Blood Ionized Calcium 4.5 L Urine Creatinine Urine Total Protein Vancomycin Trough Coronavirus (PCR) SARS-CoV-2 IgG Ab 07/29/20 07/30/20 07/30/20 23:28 04:47 05:28 WBC RBC Hgb Hct MCH MCHC RDW Plt Count Lymph % (Auto) Lymph # (Auto) Seg Neutrophils % Seg Neuts % (Manual) Lymphocytes % (Manual) Eosinophils % (Manual) Nucleated RBC % Seg Neutrophils # Seg Neutrophils # Man Lymphocytes # (Manual) Eosinophils # (Manual) PT INR D-Dimer ABG pH POC ABG pCO2 55.1 H POC ABG pO2 43.6 L ABG pO2 ABG HCO3 ABG O2 Saturation ABG Base Excess ABG Hemoglobin 11.9 L ABG Oxyhemoglobin ABG Sodium ABG Potassium ABG Chloride 96.0 L ABG Glucose 150 H Oxyhemoglobin Carboxyhemoglobin Sodium Potassium Chloride Carbon Dioxide BUN Creatinine Glucose POC Glucose 121 H 143 H Lactic Acid Calcium Ferritin AST ALT Lactate Dehydrogenase C-Reactive Protein Total Protein Albumin Triglycerides Arterial Blood Glucose 150 H Arterial Blood Ionized Calcium Urine Creatinine Urine Total Protein Vancomycin Trough Coronavirus (PCR) SARS-CoV-2 IgG Ab 07/30/20 07/30/20 07/30/20 08:18 12:00 14:17 WBC RBC Hgb Hct MCH MCHC RDW Plt Count Lymph % (Auto) Lymph # (Auto) Seg Neutrophils % Seg Neuts % (Manual) Lymphocytes % (Manual) Eosinophils % (Manual) Nucleated RBC % Seg Neutrophils # Seg Neutrophils # Man Lymphocytes # (Manual) Eosinophils # (Manual) PT INR D-Dimer ABG pH POC ABG pCO2 63.3 H 64.6 H POC ABG pO2 47.9 L 41.0 L ABG pO2 ABG HCO3 ABG O2 Saturation ABG Base Excess ABG Hemoglobin 10.5 L 10.2 L ABG Oxyhemoglobin 84.9 L ABG Sodium ABG Potassium ABG Chloride 97.0 L ABG Glucose 170 H 175 H Oxyhemoglobin Carboxyhemoglobin Sodium Potassium Chloride Carbon Dioxide BUN Creatinine Glucose POC Glucose 161 H Lactic Acid Calcium Ferritin AST ALT Lactate Dehydrogenase C-Reactive Protein Total Protein Albumin Triglycerides Arterial Blood Glucose 170 H 175 H Arterial Blood Ionized Calcium 4.4 L 4.4 L Urine Creatinine Urine Total Protein Vancomycin Trough Coronavirus (PCR) SARS-CoV-2 IgG Ab 07/30/20 07/30/20 07/30/20 15:15 15:15 15:15 WBC RBC 2.80 L Hgb 9.1 L Hct 26.0 L D MCH MCHC 35 H RDW Plt Count 101 L Lymph % (Auto) Lymph # (Auto) Seg Neutrophils % Seg Neuts % (Manual) 90.0 H Lymphocytes % (Manual) 7.0 L Eosinophils % (Manual) Nucleated RBC % Seg Neutrophils # Seg Neutrophils # Man Lymphocytes # (Manual) 0.4 L Eosinophils # (Manual) PT INR D-Dimer ABG pH POC ABG pCO2 POC ABG pO2 ABG pO2 ABG HCO3 ABG O2 Saturation ABG Base Excess ABG Hemoglobin ABG Oxyhemoglobin ABG Sodium ABG Potassium ABG Chloride ABG Glucose Oxyhemoglobin Carboxyhemoglobin Sodium Potassium Chloride 97.1 L Carbon Dioxide 32 H D BUN 39 H Creatinine 1.3 H D Glucose 167 H POC Glucose Lactic Acid Calcium 8.0 L Ferritin AST ALT Lactate Dehydrogenase C-Reactive Protein Total Protein Albumin Triglycerides 837 H Arterial Blood Glucose Arterial Blood Ionized Calcium Urine Creatinine Urine Total Protein Vancomycin Trough Coronavirus (PCR) SARS-CoV-2 IgG Ab 07/30/20 07/30/20 07/30/20 15:15 17:03 17:43 WBC RBC Hgb Hct MCH MCHC RDW Plt Count Lymph % (Auto) Lymph # (Auto) Seg Neutrophils % Seg Neuts % (Manual) Lymphocytes % (Manual) Eosinophils % (Manual) Nucleated RBC % Seg Neutrophils # Seg Neutrophils # Man Lymphocytes # (Manual) Eosinophils # (Manual) PT INR D-Dimer ABG pH POC ABG pCO2 POC ABG pO2 ABG pO2 ABG HCO3 ABG O2 Saturation ABG Base Excess ABG Hemoglobin ABG Oxyhemoglobin ABG Sodium ABG Potassium ABG Chloride ABG Glucose Oxyhemoglobin Carboxyhemoglobin Sodium Potassium Chloride Carbon Dioxide BUN Creatinine Glucose POC Glucose 171 H Lactic Acid 2.20 H* 3.60 H* Calcium Ferritin AST ALT Lactate Dehydrogenase C-Reactive Protein Total Protein Albumin Triglycerides Arterial Blood Glucose Arterial Blood Ionized Calcium Urine Creatinine Urine Total Protein Vancomycin Trough Coronavirus (PCR) SARS-CoV-2 IgG Ab 07/30/20 07/30/20 07/31/20 20:13 23:37 04:15 WBC RBC Hgb Hct MCH MCHC RDW Plt Count Lymph % (Auto) Lymph # (Auto) Seg Neutrophils % Seg Neuts % (Manual) Lymphocytes % (Manual) Eosinophils % (Manual) Nucleated RBC % Seg Neutrophils # Seg Neutrophils # Man Lymphocytes # (Manual) Eosinophils # (Manual) PT INR D-Dimer ABG pH 7.544 H 7.489 H POC ABG pCO2 POC ABG pO2 44.4 L 50.0 L ABG pO2 ABG HCO3 ABG O2 Saturation ABG Base Excess ABG Hemoglobin 10.4 L ABG Oxyhemoglobin ABG Sodium 135.3 L ABG Potassium ABG Chloride ABG Glucose 201 H 199 H Oxyhemoglobin Carboxyhemoglobin Sodium Potassium Chloride Carbon Dioxide BUN Creatinine Glucose POC Glucose 160 H Lactic Acid Calcium Ferritin AST ALT Lactate Dehydrogenase C-Reactive Protein Total Protein Albumin Triglycerides Arterial Blood Glucose 201 H 199 H Arterial Blood Ionized Calcium 4.2 L 4.4 L Urine Creatinine Urine Total Protein Vancomycin Trough Coronavirus (PCR) SARS-CoV-2 IgG Ab 07/31/20 07/31/20 07/31/20 05:16 05:16 05:28 WBC RBC 3.03 L Hgb 9.2 L Hct 27.6 L MCH MCHC RDW Plt Count 118 L Lymph % (Auto) 6.3 L Lymph # (Auto) 0.5 L Seg Neutrophils % Seg Neuts % (Manual) Lymphocytes % (Manual) Eosinophils % (Manual) Nucleated RBC % Seg Neutrophils # Seg Neutrophils # Man Lymphocytes # (Manual) Eosinophils # (Manual) PT INR D-Dimer ABG pH POC ABG pCO2 POC ABG pO2 ABG pO2 ABG HCO3 ABG O2 Saturation ABG Base Excess ABG Hemoglobin ABG Oxyhemoglobin ABG Sodium ABG Potassium ABG Chloride ABG Glucose Oxyhemoglobin Carboxyhemoglobin Sodium Potassium Chloride Carbon Dioxide BUN 57 H Creatinine 1.7 H Glucose 208 H POC Glucose 182 H Lactic Acid Calcium 8.3 L Ferritin AST 613 H ALT 760 H Lactate Dehydrogenase C-Reactive Protein Total Protein 5.6 L Albumin 2.2 L Triglycerides Arterial Blood Glucose Arterial Blood Ionized Calcium Urine Creatinine Urine Total Protein Vancomycin Trough Coronavirus (PCR) SARS-CoV-2 IgG Ab 12/10/1907/31/20 07/31/20 11:02 14:14 14:14 WBC RBC Hgb Hct MCH MCHC RDW Plt Count Lymph % (Auto) Lymph # (Auto) Seg Neutrophils % Seg Neuts % (Manual) Lymphocytes % (Manual) Eosinophils % (Manual) Nucleated RBC % Seg Neutrophils # Seg Neutrophils # Man Lymphocytes # (Manual) Eosinophils # (Manual) PT INR D-Dimer 2522.40 H ABG pH POC ABG pCO2 POC ABG pO2 ABG pO2 ABG HCO3 ABG O2 Saturation ABG Base Excess ABG Hemoglobin ABG Oxyhemoglobin ABG Sodium ABG Potassium ABG Chloride ABG Glucose Oxyhemoglobin Carboxyhemoglobin Sodium Potassium Chloride Carbon Dioxide BUN Creatinine Glucose POC Glucose 200 H Lactic Acid Calcium Ferritin 964.8 H AST ALT Lactate Dehydrogenase C-Reactive Protein Total Protein Albumin Triglycerides Arterial Blood Glucose Arterial Blood Ionized Calcium Urine Creatinine Urine Total Protein Vancomycin Trough Coronavirus (PCR) SARS-CoV-2 IgG Ab 07/31/20 07/31/20 07/31/20 14:14 14:14 16:00 WBC RBC Hgb Hct MCH MCHC RDW Plt Count Lymph % (Auto) Lymph # (Auto) Seg Neutrophils % Seg Neuts % (Manual) Lymphocytes % (Manual) Eosinophils % (Manual) Nucleated RBC % Seg Neutrophils # Seg Neutrophils # Man Lymphocytes # (Manual) Eosinophils # (Manual) PT INR D-Dimer ABG pH POC ABG pCO2 POC ABG pO2 ABG pO2 ABG HCO3 ABG O2 Saturation ABG Base Excess ABG Hemoglobin ABG Oxyhemoglobin ABG Sodium ABG Potassium ABG Chloride ABG Glucose Oxyhemoglobin Carboxyhemoglobin Sodium Potassium Chloride Carbon Dioxide BUN Creatinine Glucose POC Glucose Lactic Acid Calcium Ferritin AST ALT Lactate Dehydrogenase 585 H C-Reactive Protein 49.00 H Total Protein Albumin Triglycerides Arterial Blood Glucose Arterial Blood Ionized Calcium Urine Creatinine 89.2 H Urine Total Protein 108 H Vancomycin Trough 28.2 H Coronavirus (PCR) SARS-CoV-2 IgG Ab 07/31/20 07/31/20 08/01/20 17:22 21:26 00:07 WBC RBC Hgb Hct MCH MCHC RDW Plt Count Lymph % (Auto) Lymph # (Auto) Seg Neutrophils % Seg Neuts % (Manual) Lymphocytes % (Manual) Eosinophils % (Manual) Nucleated RBC % Seg Neutrophils # Seg Neutrophils # Man Lymphocytes # (Manual) Eosinophils # (Manual) PT INR D-Dimer ABG pH POC ABG pCO2 POC ABG pO2 156.0 H ABG pO2 ABG HCO3 ABG O2 Saturation ABG Base Excess ABG Hemoglobin 9.6 L ABG Oxyhemoglobin 98.4 H ABG Sodium 135.9 L ABG Potassium ABG Chloride ABG Glucose 290 H Oxyhemoglobin Carboxyhemoglobin 0.4 L Sodium Potassium Chloride Carbon Dioxide BUN Creatinine Glucose POC Glucose 229 H 255 H Lactic Acid Calcium Ferritin AST ALT Lactate Dehydrogenase C-Reactive Protein Total Protein Albumin Triglycerides Arterial Blood Glucose 290 H Arterial Blood Ionized Calcium 4.5 L Urine Creatinine Urine Total Protein Vancomycin Trough Coronavirus (PCR) SARS-CoV-2 IgG Ab 08/01/20 08/01/20 08/01/20 04:46 05:30 05:30 WBC RBC 2.27 L Hgb 7.6 L Hct 20.9 L D MCH 34 H MCHC 37 H RDW Plt Count 85 L Lymph % (Auto) Lymph # (Auto) Seg Neutrophils % Seg Neuts % (Manual) 87.0 H Lymphocytes % (Manual) 2.0 L Eosinophils % (Manual) Nucleated RBC % 1.0 H Seg Neutrophils # Seg Neutrophils # Man Lymphocytes # (Manual) 0.1 L Eosinophils # (Manual) PT INR D-Dimer ABG pH 7.462 H POC ABG pCO2 POC ABG pO2 70.2 L ABG pO2 ABG HCO3 ABG O2 Saturation ABG Base Excess ABG Hemoglobin 8.7 L ABG Oxyhemoglobin ABG Sodium 135.7 L ABG Potassium 3.3 L ABG Chloride ABG Glucose 275 H Oxyhemoglobin Carboxyhemoglobin Sodium 132 L D Potassium 2.8 L* D Chloride Carbon Dioxide BUN 47 H Creatinine Glucose 217 H POC Glucose Lactic Acid Calcium 6.6 L D Ferritin AST 117 H ALT 408 H Lactate Dehydrogenase C-Reactive Protein Total Protein 4.3 L D Albumin 0.6 L Triglycerides 2335 H Arterial Blood Glucose 275 H Arterial Blood Ionized Calcium 4.5 L Urine Creatinine Urine Total Protein Vancomycin Trough Coronavirus (PCR) SARS-CoV-2 IgG Ab 08/01/20 08/01/20 08/01/20 05:34 09:33 11:50 WBC RBC Hgb Hct MCH MCHC RDW Plt Count Lymph % (Auto) Lymph # (Auto) Seg Neutrophils % Seg Neuts % (Manual) Lymphocytes % (Manual) Eosinophils % (Manual) Nucleated RBC % Seg Neutrophils # Seg Neutrophils # Man Lymphocytes # (Manual) Eosinophils # (Manual) PT INR D-Dimer ABG pH POC ABG pCO2 POC ABG pO2 ABG pO2 ABG HCO3 ABG O2 Saturation ABG Base Excess ABG Hemoglobin ABG Oxyhemoglobin ABG Sodium ABG Potassium ABG Chloride ABG Glucose Oxyhemoglobin Carboxyhemoglobin Sodium Potassium Chloride Carbon Dioxide BUN 57 H Creatinine Glucose 250 H POC Glucose 246 H 239 H Lactic Acid Calcium 8.2 L D Ferritin AST ALT Lactate Dehydrogenase C-Reactive Protein Total Protein Albumin Triglycerides 759 H Arterial Blood Glucose Arterial Blood Ionized Calcium Urine Creatinine Urine Total Protein Vancomycin Trough Coronavirus (PCR) SARS-CoV-2 IgG Ab 08/01/20 08/01/20 08/02/20 17:14 23:21 04:22 WBC RBC Hgb Hct MCH MCHC RDW Plt Count Lymph % (Auto) Lymph # (Auto) Seg Neutrophils % Seg Neuts % (Manual) Lymphocytes % (Manual) Eosinophils % (Manual) Nucleated RBC % Seg Neutrophils # Seg Neutrophils # Man Lymphocytes # (Manual) Eosinophils # (Manual) PT INR D-Dimer ABG pH 7.268 L POC ABG pCO2 56.6 H POC ABG pO2 ABG pO2 ABG HCO3 ABG O2 Saturation ABG Base Excess ABG Hemoglobin 8.4 L ABG Oxyhemoglobin ABG Sodium ABG Potassium 4.9 H ABG Chloride ABG Glucose 261 H Oxyhemoglobin Carboxyhemoglobin Sodium Potassium Chloride Carbon Dioxide BUN Creatinine Glucose POC Glucose 219 H 242 H Lactic Acid Calcium Ferritin AST ALT Lactate Dehydrogenase C-Reactive Protein Total Protein Albumin Triglycerides Arterial Blood Glucose 261 H Arterial Blood Ionized Calcium Urine Creatinine Urine Total Protein Vancomycin Trough Coronavirus (PCR) SARS-CoV-2 IgG Ab 08/02/20 08/02/20 08/02/20 05:05 06:37 06:37 WBC RBC 3.40 L Hgb 10.0 L Hct MCH MCHC RDW 16.2 H Plt Count 87 L Lymph % (Auto) Lymph # (Auto) Seg Neutrophils % Seg Neuts % (Manual) 82.0 H Lymphocytes % (Manual) 3.0 L Eosinophils % (Manual) Nucleated RBC % 2.0 H Seg Neutrophils # Seg Neutrophils # Man 9.0 H Lymphocytes # (Manual) 0.3 L Eosinophils # (Manual) PT INR D-Dimer ABG pH POC ABG pCO2 POC ABG pO2 ABG pO2 ABG HCO3 ABG O2 Saturation ABG Base Excess ABG Hemoglobin ABG Oxyhemoglobin ABG Sodium ABG Potassium ABG Chloride ABG Glucose Oxyhemoglobin Carboxyhemoglobin Sodium Potassium 5.3 H D Chloride Carbon Dioxide BUN 53 H Creatinine Glucose 267 H POC Glucose 254 H Lactic Acid Calcium 8.1 L Ferritin AST 43 H ALT 334 H Lactate Dehydrogenase C-Reactive Protein Total Protein 5.4 L D Albumin 1.9 L Triglycerides Arterial Blood Glucose Arterial Blood Ionized Calcium Urine Creatinine Urine Total Protein Vancomycin Trough Coronavirus (PCR) SARS-CoV-2 IgG Ab 08/02/20 08/02/20 08/02/20 06:37 11:34 17:04 WBC RBC Hgb Hct MCH MCHC RDW Plt Count Lymph % (Auto) Lymph # (Auto) Seg Neutrophils % Seg Neuts % (Manual) Lymphocytes % (Manual) Eosinophils % (Manual) Nucleated RBC % Seg Neutrophils # Seg Neutrophils # Man Lymphocytes # (Manual) Eosinophils # (Manual) PT INR D-Dimer ABG pH POC ABG pCO2 POC ABG pO2 ABG pO2 ABG HCO3 ABG O2 Saturation ABG Base Excess ABG Hemoglobin ABG Oxyhemoglobin ABG Sodium ABG Potassium ABG Chloride ABG Glucose Oxyhemoglobin Carboxyhemoglobin Sodium Potassium Chloride Carbon Dioxide BUN Creatinine Glucose POC Glucose 279 H 256 H Lactic Acid Calcium Ferritin AST ALT Lactate Dehydrogenase C-Reactive Protein Total Protein Albumin Triglycerides 717 H Arterial Blood Glucose Arterial Blood Ionized Calcium Urine Creatinine Urine Total Protein Vancomycin Trough Coronavirus (PCR) SARS-CoV-2 IgG Ab 08/02/20 08/03/20 08/03/20 23:23 01:25 04:49 WBC 13.2 H RBC 2.83 L Hgb 8.4 L Hct 26.3 L MCH MCHC RDW 16.4 H Plt Count Lymph % (Auto) Lymph # (Auto) Seg Neutrophils % Seg Neuts % (Manual) Lymphocytes % (Manual) 2.0 L Eosinophils % (Manual) Nucleated RBC % 1.0 H Seg Neutrophils # Seg Neutrophils # Man 7.8 H Lymphocytes # (Manual) 0.3 L Eosinophils # (Manual) PT INR D-Dimer ABG pH 7.302 L POC ABG pCO2 56.0 H POC ABG pO2 39.6 L ABG pO2 ABG HCO3 ABG O2 Saturation ABG Base Excess ABG Hemoglobin 9.1 L ABG Oxyhemoglobin ABG Sodium ABG Potassium 4.8 H ABG Chloride 108.0 H ABG Glucose 275 H Oxyhemoglobin Carboxyhemoglobin Sodium Potassium Chloride Carbon Dioxide BUN Creatinine Glucose POC Glucose 214 H Lactic Acid Calcium Ferritin AST ALT Lactate Dehydrogenase C-Reactive Protein Total Protein Albumin Triglycerides Arterial Blood Glucose 275 H Arterial Blood Ionized Calcium Urine Creatinine Urine Total Protein Vancomycin Trough Coronavirus (PCR) SARS-CoV-2 IgG Ab 08/03/20 08/03/20 08/03/20 04:49 04:49 05:11 WBC RBC Hgb Hct MCH MCHC RDW Plt Count Lymph % (Auto) Lymph # (Auto) Seg Neutrophils % Seg Neuts % (Manual) Lymphocytes % (Manual) Eosinophils % (Manual) Nucleated RBC % Seg Neutrophils # Seg Neutrophils # Man Lymphocytes # (Manual) Eosinophils # (Manual) PT INR D-Dimer ABG pH POC ABG pCO2 POC ABG pO2 ABG pO2 ABG HCO3 ABG O2 Saturation ABG Base Excess ABG Hemoglobin ABG Oxyhemoglobin ABG Sodium ABG Potassium ABG Chloride ABG Glucose Oxyhemoglobin Carboxyhemoglobin Sodium Potassium Chloride Carbon Dioxide BUN 39 H Creatinine Glucose 263 H POC Glucose 230 H Lactic Acid Calcium 8.1 L Ferritin AST ALT 242 H Lactate Dehydrogenase C-Reactive Protein Total Protein 5.4 L Albumin 2.2 L Triglycerides 500 H Arterial Blood Glucose Arterial Blood Ionized Calcium Urine Creatinine Urine Total Protein Vancomycin Trough Coronavirus (PCR) SARS-CoV-2 IgG Ab 08/03/20 08/03/20 08/03/20 11:55 17:07 23:25 WBC RBC Hgb Hct MCH MCHC RDW Plt Count Lymph % (Auto) Lymph # (Auto) Seg Neutrophils % Seg Neuts % (Manual) Lymphocytes % (Manual) Eosinophils % (Manual) Nucleated RBC % Seg Neutrophils # Seg Neutrophils # Man Lymphocytes # (Manual) Eosinophils # (Manual) PT INR D-Dimer ABG pH POC ABG pCO2 POC ABG pO2 ABG pO2 ABG HCO3 ABG O2 Saturation ABG Base Excess ABG Hemoglobin ABG Oxyhemoglobin ABG Sodium ABG Potassium ABG Chloride ABG Glucose Oxyhemoglobin Carboxyhemoglobin Sodium Potassium Chloride Carbon Dioxide BUN Creatinine Glucose POC Glucose 238 H 205 H 211 H Lactic Acid Calcium Ferritin AST ALT Lactate Dehydrogenase C-Reactive Protein Total Protein Albumin Triglycerides Arterial Blood Glucose Arterial Blood Ionized Calcium Urine Creatinine Urine Total Protein Vancomycin Trough Coronavirus (PCR) SARS-CoV-2 IgG Ab 08/04/20 08/04/20 08/04/20 03:16 05:31 12:07 WBC RBC Hgb Hct MCH MCHC RDW Plt Count Lymph % (Auto) Lymph # (Auto) Seg Neutrophils % Seg Neuts % (Manual) Lymphocytes % (Manual) Eosinophils % (Manual) Nucleated RBC % Seg Neutrophils # Seg Neutrophils # Man Lymphocytes # (Manual) Eosinophils # (Manual) PT INR D-Dimer ABG pH 7.154 L POC ABG pCO2 80.7 H POC ABG pO2 ABG pO2 ABG HCO3 ABG O2 Saturation ABG Base Excess ABG Hemoglobin 8.5 L ABG Oxyhemoglobin ABG Sodium ABG Potassium 5.1 H ABG Chloride 109.0 H ABG Glucose 226 H Oxyhemoglobin Carboxyhemoglobin Sodium Potassium Chloride Carbon Dioxide BUN Creatinine Glucose POC Glucose 201 H 213 H Lactic Acid Calcium Ferritin AST ALT Lactate Dehydrogenase C-Reactive Protein Total Protein Albumin Triglycerides Arterial Blood Glucose 226 H Arterial Blood Ionized Calcium Urine Creatinine Urine Total Protein Vancomycin Trough Coronavirus (PCR) SARS-CoV-2 IgG Ab 08/04/20 08/04/20 08/04/20 17:39 23:17 Unknown WBC RBC 2.38 L Hgb 7.1 L Hct 22.4 L MCH MCHC RDW 16.5 H Plt Count Lymph % (Auto) Lymph # (Auto) Seg Neutrophils % Seg Neuts % (Manual) Lymphocytes % (Manual) 1.0 L Eosinophils % (Manual) Nucleated RBC % Seg Neutrophils # Seg Neutrophils # Man Lymphocytes # (Manual) 0.1 L Eosinophils # (Manual) PT INR D-Dimer ABG pH POC ABG pCO2 POC ABG pO2 ABG pO2 ABG HCO3 ABG O2 Saturation ABG Base Excess ABG Hemoglobin ABG Oxyhemoglobin ABG Sodium ABG Potassium ABG Chloride ABG Glucose Oxyhemoglobin Carboxyhemoglobin Sodium Potassium Chloride Carbon Dioxide BUN Creatinine Glucose POC Glucose 155 H 107 H Lactic Acid Calcium Ferritin AST ALT Lactate Dehydrogenase C-Reactive Protein Total Protein Albumin Triglycerides Arterial Blood Glucose Arterial Blood Ionized Calcium Urine Creatinine Urine Total Protein Vancomycin Trough Coronavirus (PCR) SARS-CoV-2 IgG Ab 08/04/20 08/05/20 08/05/20 Unknown 05:14 05:50 WBC RBC Hgb Hct MCH MCHC RDW Plt Count Lymph % (Auto) Lymph # (Auto) Seg Neutrophils % Seg Neuts % (Manual) Lymphocytes % (Manual) Eosinophils % (Manual) Nucleated RBC % Seg Neutrophils # Seg Neutrophils # Man Lymphocytes # (Manual) Eosinophils # (Manual) PT INR D-Dimer ABG pH POC ABG pCO2 51.7 H POC ABG pO2 63.3 L ABG pO2 ABG HCO3 ABG O2 Saturation ABG Base Excess ABG Hemoglobin 9.9 L ABG Oxyhemoglobin ABG Sodium 146.9 H ABG Potassium ABG Chloride 113.0 H ABG Glucose 112 H Oxyhemoglobin Carboxyhemoglobin Sodium Potassium Chloride 113.1 H Carbon Dioxide BUN 27 H Creatinine 0.5 L Glucose 190 H POC Glucose 126 H Lactic Acid Calcium 7.5 L Ferritin AST ALT 134 H Lactate Dehydrogenase C-Reactive Protein Total Protein 4.7 L Albumin 2.2 L Triglycerides Arterial Blood Glucose 112 H Arterial Blood Ionized Calcium Urine Creatinine Urine Total Protein Vancomycin Trough Coronavirus (PCR) SARS-CoV-2 IgG Ab 08/05/20 08/05/20 08/05/20 08:30 08:30 11:19 WBC 16.5 H RBC 2.79 L Hgb 8.3 L Hct 26.1 L MCH MCHC RDW 16.7 H Plt Count Lymph % (Auto) Lymph # (Auto) Seg Neutrophils % Seg Neuts % (Manual) Lymphocytes % (Manual) 6.0 L Eosinophils % (Manual) Nucleated RBC % Seg Neutrophils # Seg Neutrophils # Man 10.1 H Lymphocytes # (Manual) 1.0 L Eosinophils # (Manual) PT INR D-Dimer ABG pH POC ABG pCO2 POC ABG pO2 ABG pO2 ABG HCO3 ABG O2 Saturation ABG Base Excess ABG Hemoglobin ABG Oxyhemoglobin ABG Sodium ABG Potassium ABG Chloride ABG Glucose Oxyhemoglobin Carboxyhemoglobin Sodium 149 H Potassium Chloride 112.9 H Carbon Dioxide 32 H D BUN 25 H Creatinine Glucose 184 H POC Glucose 185 H Lactic Acid Calcium Ferritin AST ALT 115 H Lactate Dehydrogenase C-Reactive Protein Total Protein 5.5 L Albumin 2.3 L Triglycerides Arterial Blood Glucose Arterial Blood Ionized Calcium Urine Creatinine Urine Total Protein Vancomycin Trough Coronavirus (PCR) SARS-CoV-2 IgG Ab 08/05/20 08/05/20 08/05/20 13:35 13:35 13:35 WBC RBC Hgb 7.7 L Hct 24.6 L MCH MCHC RDW Plt Count Lymph % (Auto) Lymph # (Auto) Seg Neutrophils % Seg Neuts % (Manual) Lymphocytes % (Manual) Eosinophils % (Manual) Nucleated RBC % Seg Neutrophils # Seg Neutrophils # Man Lymphocytes # (Manual) Eosinophils # (Manual) PT 15.4 H INR 1.22 H D-Dimer 4748.32 H ABG pH POC ABG pCO2 POC ABG pO2 ABG pO2 ABG HCO3 ABG O2 Saturation ABG Base Excess ABG Hemoglobin ABG Oxyhemoglobin ABG Sodium ABG Potassium ABG Chloride ABG Glucose Oxyhemoglobin Carboxyhemoglobin Sodium Potassium Chloride Carbon Dioxide BUN Creatinine Glucose POC Glucose Lactic Acid Calcium Ferritin AST ALT Lactate Dehydrogenase C-Reactive Protein 26.40 H Total Protein Albumin Triglycerides 337 H Arterial Blood Glucose Arterial Blood Ionized Calcium Urine Creatinine Urine Total Protein Vancomycin Trough Coronavirus (PCR) SARS-CoV-2 IgG Ab 08/05/20 08/05/20 08/05/20 16:56 20:07 23:29 WBC RBC Hgb Hct MCH MCHC RDW Plt Count Lymph % (Auto) Lymph # (Auto) Seg Neutrophils % Seg Neuts % (Manual) Lymphocytes % (Manual) Eosinophils % (Manual) Nucleated RBC % Seg Neutrophils # Seg Neutrophils # Man Lymphocytes # (Manual) Eosinophils # (Manual) PT INR D-Dimer ABG pH POC ABG pCO2 POC ABG pO2 ABG pO2 ABG HCO3 ABG O2 Saturation ABG Base Excess ABG Hemoglobin ABG Oxyhemoglobin ABG Sodium ABG Potassium ABG Chloride ABG Glucose Oxyhemoglobin Carboxyhemoglobin Sodium Potassium Chloride Carbon Dioxide BUN Creatinine Glucose POC Glucose 120 H 156 H Lactic Acid Calcium Ferritin AST ALT Lactate Dehydrogenase C-Reactive Protein Total Protein Albumin Triglycerides Arterial Blood Glucose Arterial Blood Ionized Calcium Urine Creatinine Urine Total Protein Vancomycin Trough 27.0 H Coronavirus (PCR) SARS-CoV-2 IgG Ab 08/06/20 08/06/20 08/06/20 04:00 04:00 05:32 WBC 12.6 H RBC 2.40 L Hgb 7.2 L Hct 22.4 L MCH MCHC RDW 16.9 H Plt Count Lymph % (Auto) Lymph # (Auto) Seg Neutrophils % Seg Neuts % (Manual) 86.0 H Lymphocytes % (Manual) 5.0 L Eosinophils % (Manual) Nucleated RBC % Seg Neutrophils # Seg Neutrophils # Man 10.8 H Lymphocytes # (Manual) 0.6 L Eosinophils # (Manual) PT INR D-Dimer ABG pH POC ABG pCO2 POC ABG pO2 ABG pO2 ABG HCO3 ABG O2 Saturation ABG Base Excess ABG Hemoglobin ABG Oxyhemoglobin ABG Sodium ABG Potassium ABG Chloride ABG Glucose Oxyhemoglobin Carboxyhemoglobin Sodium 147 H Potassium Chloride 112.5 H Carbon Dioxide BUN 27 H Creatinine Glucose 193 H POC Glucose 155 H Lactic Acid Calcium 8.3 L Ferritin AST ALT 77 H Lactate Dehydrogenase C-Reactive Protein Total Protein 5.0 L Albumin 2.2 L Triglycerides Arterial Blood Glucose Arterial Blood Ionized Calcium Urine Creatinine Urine Total Protein Vancomycin Trough Coronavirus (PCR) SARS-CoV-2 IgG Ab 08/06/20 08/06/20 08/06/20 09:31 11:55 17:44 WBC RBC Hgb Hct MCH MCHC RDW Plt Count Lymph % (Auto) Lymph # (Auto) Seg Neutrophils % Seg Neuts % (Manual) Lymphocytes % (Manual) Eosinophils % (Manual) Nucleated RBC % Seg Neutrophils # Seg Neutrophils # Man Lymphocytes # (Manual) Eosinophils # (Manual) PT INR D-Dimer ABG pH POC ABG pCO2 POC ABG pO2 ABG pO2 ABG HCO3 ABG O2 Saturation ABG Base Excess ABG Hemoglobin ABG Oxyhemoglobin ABG Sodium ABG Potassium ABG Chloride ABG Glucose Oxyhemoglobin Carboxyhemoglobin Sodium Potassium Chloride Carbon Dioxide BUN Creatinine Glucose POC Glucose 140 H 151 H 132 H Lactic Acid Calcium Ferritin AST ALT Lactate Dehydrogenase C-Reactive Protein Total Protein Albumin Triglycerides Arterial Blood Glucose Arterial Blood Ionized Calcium Urine Creatinine Urine Total Protein Vancomycin Trough Coronavirus (PCR) SARS-CoV-2 IgG Ab 08/06/20 08/06/20 08/06/20 21:11 23:21 Unknown WBC RBC Hgb Hct MCH MCHC RDW Plt Count Lymph % (Auto) Lymph # (Auto) Seg Neutrophils % Seg Neuts % (Manual) Lymphocytes % (Manual) Eosinophils % (Manual) Nucleated RBC % Seg Neutrophils # Seg Neutrophils # Man Lymphocytes # (Manual) Eosinophils # (Manual) PT INR D-Dimer ABG pH POC ABG pCO2 49.3 H 50.5 H POC ABG pO2 62.1 L 70.5 L ABG pO2 ABG HCO3 ABG O2 Saturation ABG Base Excess ABG Hemoglobin 8.6 L 8.3 L ABG Oxyhemoglobin 90.2 L ABG Sodium ABG Potassium ABG Chloride 111.0 H 113.0 H ABG Glucose 171 H 204 H Oxyhemoglobin Carboxyhemoglobin 1.7 H Sodium Potassium Chloride Carbon Dioxide BUN Creatinine Glucose POC Glucose 160 H Lactic Acid Calcium Ferritin AST ALT Lactate Dehydrogenase C-Reactive Protein Total Protein Albumin Triglycerides Arterial Blood Glucose 171 H 204 H Arterial Blood Ionized Calcium Urine Creatinine Urine Total Protein Vancomycin Trough Coronavirus (PCR) SARS-CoV-2 IgG Ab 08/07/20 08/07/20 08/07/20 02:06 02:06 04:00 WBC 18.0 H RBC 2.91 L Hgb 8.5 L Hct 27.2 L MCH MCHC RDW 17.7 H Plt Count Lymph % (Auto) 5.3 L Lymph # (Auto) 1.0 L Seg Neutrophils % Seg Neuts % (Manual) Lymphocytes % (Manual) Eosinophils % (Manual) Nucleated RBC % Seg Neutrophils # 16.6 H Seg Neutrophils # Man Lymphocytes # (Manual) Eosinophils # (Manual) PT INR D-Dimer ABG pH POC ABG pCO2 POC ABG pO2 ABG pO2 111.4 H ABG HCO3 27.6 H ABG O2 Saturation ABG Base Excess ABG Hemoglobin 8.5 L ABG Oxyhemoglobin ABG Sodium ABG Potassium ABG Chloride ABG Glucose Oxyhemoglobin Carboxyhemoglobin Sodium 146 H Potassium Chloride 110.9 H Carbon Dioxide BUN 27 H Creatinine 0.5 L Glucose 187 H POC Glucose Lactic Acid Calcium Ferritin AST ALT Lactate Dehydrogenase C-Reactive Protein Total Protein Albumin Triglycerides Arterial Blood Glucose Arterial Blood Ionized Calcium Urine Creatinine Urine Total Protein Vancomycin Trough Coronavirus (PCR) SARS-CoV-2 IgG Ab 08/07/20 05:28 WBC RBC Hgb Hct MCH MCHC RDW Plt Count Lymph % (Auto) Lymph # (Auto) Seg Neutrophils % Seg Neuts % (Manual) Lymphocytes % (Manual) Eosinophils % (Manual) Nucleated RBC % Seg Neutrophils # Seg Neutrophils # Man Lymphocytes # (Manual) Eosinophils # (Manual) PT INR D-Dimer ABG pH POC ABG pCO2 POC ABG pO2 ABG pO2 ABG HCO3 ABG O2 Saturation ABG Base Excess ABG Hemoglobin ABG Oxyhemoglobin ABG Sodium ABG Potassium ABG Chloride ABG Glucose Oxyhemoglobin Carboxyhemoglobin Sodium Potassium Chloride Carbon Dioxide BUN Creatinine Glucose POC Glucose 161 H Lactic Acid Calcium Ferritin AST ALT Lactate Dehydrogenase C-Reactive Protein Total Protein Albumin Triglycerides Arterial Blood Glucose Arterial Blood Ionized Calcium Urine Creatinine Urine Total Protein Vancomycin Trough Coronavirus (PCR) SARS-CoV-2 IgG Ab Chest x-ray: image reviewed (chest tubes in place; No gross PX) Allied health notes reviewed: nursing
--- NOTE | 2020-08-07 12:21 | Progress Note ---
Assessment and Plan 50 yo F with 1. b/l PTX with subcutaneous emphysema s/p bilateral chest tubes 2. COVID PNA 3. VDRF 4. Septic shock Pt stable. Off pressors. PEEP 14, fio2 100% CXR 08/07/20 - no definitive PTX. chest tubes in place Plan: 1. Maintain all chest tubes @ [id number] suction via pleurevac. Would not advise removing them any time soon. 2. Monitor air leaks from right chest tubes - may take time to resolve as patient is on high PEEP. 3. vent management per ICU team 4. Daily CXR Will follow peripherally Thank you, please call with any questions or concerns. Evaluation and treatment of this patient was during the time of the national and state emergency arising from COVID19 coronavirus pandemic. Treatment and procedures performed meet the current and available best practice and guidelines for patient during the COVID pandemic. Subjective Date of service: 08/07/20 Narrative: Patient seen and examined. Overnight chest tube dressing was changed. Nurses notes reviewed. Objective Vital Signs - 12hr 08/07/20 08/07/20 08/07/20 00:31 00:45 01:00 Temperature Pulse Rate 104 H 103 H 102 H Respiratory 32 H 31 H 32 H Rate Blood Pressure 151/86 152/80 152/80 O2 Sat by Pulse 90 89 91 Oximetry 08/07/20 08/07/20 08/07/20 01:15 01:31 01:45 Temperature Pulse Rate 104 H 104 H 106 H Respiratory 31 H 31 H 30 H Rate Blood Pressure 155/78 151/80 135/81 O2 Sat by Pulse 91 87 89 Oximetry 08/07/20 08/07/20 08/07/20 02:00 02:15 02:30 Temperature Pulse Rate 105 H 104 H 105 H Respiratory 18 31 H 25 H Rate Blood Pressure 144/78 163/82 179/82 O2 Sat by Pulse 93 86 91 Oximetry 08/07/20 08/07/20 08/07/20 02:45 03:01 03:15 Temperature Pulse Rate 108 H 110 H 115 H Respiratory 18 20 15 Rate Blood Pressure 183/87 195/91 185/82 O2 Sat by Pulse 89 98 93 Oximetry 08/07/20 08/07/20 08/07/20 03:31 03:45 03:56 Temperature Pulse Rate 116 H 117 H 120 H Respiratory 12 12 Rate Blood Pressure 175/83 178/82 178/82 O2 Sat by Pulse 98 100 100 Oximetry 08/07/20 08/07/20 08/07/20 04:00 04:01 04:15 Temperature 98.8 F Pulse Rate 118 H 118 H Respiratory 11 L 11 L Rate Blood Pressure 151/64 138/75 O2 Sat by Pulse 99 99 Oximetry 08/07/20 08/07/20 08/07/20 04:30 04:45 05:01 Temperature Pulse Rate 115 H 117 H 116 H Respiratory 11 L 11 L 12 Rate Blood Pressure 126/67 127/61 128/63 O2 Sat by Pulse 100 100 100 Oximetry 08/07/20 08/07/20 08/07/20 05:15 05:31 05:45 Temperature Pulse Rate 115 H 115 H 113 H Respiratory 11 L 9 L 10 L Rate Blood Pressure 125/59 126/57 118/58 O2 Sat by Pulse 100 100 100 Oximetry 08/07/20 08/07/20 08/07/20 06:01 06:15 06:31 Temperature Pulse Rate 113 H 113 H 116 H Respiratory 11 L 10 L 11 L Rate Blood Pressure 109/51 113/59 105/52 O2 Sat by Pulse 100 100 99 Oximetry 08/07/20 08/07/20 08/07/20 06:45 07:01 07:15 Temperature Pulse Rate 117 H 116 H 112 H Respiratory 10 L 10 L 9 L Rate Blood Pressure 107/50 107/53 111/56 O2 Sat by Pulse 100 98 100 Oximetry 08/07/20 08/07/20 08/07/20 07:31 07:45 08:00 Temperature 99.4 F Pulse Rate 116 H 112 H 116 H Respiratory 10 L 9 L 10 L Rate Blood Pressure 109/54 127/63 140/59 O2 Sat by Pulse 100 100 100 Oximetry 08/07/20 08/07/20 08/07/20 08:15 08:19 08:30 Temperature Pulse Rate 109 H 109 H 106 H Respiratory 12 10 L Rate Blood Pressure 150/82 150/82 201/69 O2 Sat by Pulse 100 100 100 Oximetry 08/07/20 08/07/20 08/07/20 08:45 09:00 09:15 Temperature Pulse Rate 109 H 108 H 109 H Respiratory 10 L 13 12 Rate Blood Pressure 154/82 164/84 176/82 O2 Sat by Pulse 100 100 100 Oximetry 08/07/20 08/07/20 09:31 11:34 Temperature Pulse Rate 107 H 102 H Respiratory 28 H Rate Blood Pressure 138/75 137/59 O2 Sat by Pulse 100 100 Oximetry - General physical appearance Narrative Exam: Gen.: Intubated and sedated. ENT: ET tube and OG tube in place. Respiratory: Right chest tube #1 with serosanguineous drainage in tubing, continuous air leak. Right chest tube #2 with serosanguineous drainage in tubing, continuous air leak. Left chest tube no leak. - Labs 08/07/20 02:06 08/07/20 02:06 Diabetes panel 08/07/20 Range/Units 02:06 Sodium 146 H (137-145) mmol/L Potassium 4.1 (3.6-5.0) mmol/L Chloride 110.9 H (98-107) mmol/L Carbon Dioxide 23 (22-30) mmol/L BUN 27 H (7-17) mg/dL Creatinine 0.5 L (0.6-1.2) mg/dL Glucose 187 H (65-100) mg/dL Calcium 8.6 (8.4-10.2) mg/dL Calcium panel 08/07/20 Range/Units 02:06 Calcium 8.6 (8.4-10.2) mg/dL Pituitary panel 08/07/20 Range/Units 02:06 Sodium 146 H (137-145) mmol/L Potassium 4.1 (3.6-5.0) mmol/L Chloride 110.9 H (98-107) mmol/L Carbon Dioxide 23 (22-30) mmol/L BUN 27 H (7-17) mg/dL Creatinine 0.5 L (0.6-1.2) mg/dL Glucose 187 H (65-100) mg/dL Calcium 8.6 (8.4-10.2) mg/dL Adrenal panel 08/07/20 Range/Units 02:06 Sodium 146 H (137-145) mmol/L Potassium 4.1 (3.6-5.0) mmol/L Chloride 110.9 H (98-107) mmol/L Carbon Dioxide 23 (22-30) mmol/L BUN 27 H (7-17) mg/dL Creatinine 0.5 L (0.6-1.2) mg/dL Glucose 187 H (65-100) mg/dL Calcium 8.6 (8.4-10.2) mg/dL
[2020-08-07] MEDS: HEPARIN/ 0.45% NACL DRIP 25,000 UNIT/500 ML BAG IV SCH (14:32)
--- NOTE | 2020-08-07 16:04 | XRay Report ---
ABDOMEN ONE VIEW INDICATION / CLINICAL INFORMATION: Oral GT placed. COMPARISON: 08/05/2020 at 1311 hours FINDINGS: An orogastric tube is present with the tip superimposed over the expected position of the gastric bod y Signer Name: Raulito Denny MD FACR Signed: 08/07/2020 4:00 PM Workstation Name: [id number]
[2020-08-07] MEDS: VANCOMYCIN 1,500 MG in SODIUM CHLORIDE 0.9% 500 ML 500 ML IV SCH (21:18)
[2020-08-08] MEDS: METOCLOPRAMIDE 10 MG/2 ML INJ IV SCH ×4 (00:07→18:35)
[2020-08-08] MEDS: INSULIN REGULAR, HUMAN 100 UNIT/ML 3ML VIAL SUB-Q SCH ×5 (00:07→18:36)
[2020-08-08] MEDS: fentaNYL DRIP Premix 2,000 MCG/100 ML BAG IV SCH ×5 (04:05→19:54)
[2020-08-08] MEDS: chlordiazePOXIDE 25 MG CAP PO SCH ×3 (05:00→21:09)
--- NOTE | 2020-08-08 05:45 | XRay Report ---
CHEST 1 VIEW INDICATION / CLINICAL INFORMATION: PTX, vent. COMPARISON: Chest radiograph one day prior FINDINGS: SUPPORT DEVICES: Stable position of endotracheal tube, enteric tube, left-sided PICC, and bilateral c hest tubes. HEART / MEDIASTINUM: Stable. LUNGS / PLEURA: Moderate bilateral airspace opacities are not significant changed from prior examinat ion. There is focal lucency along the right hemidiaphragm which may reflect subpleural sparing of the pulmonary process versus a small residual right pneumothorax. ADDITIONAL FINDINGS: Interval improvement of subcutaneous emphysema in the supraclavicular regions. IMPRESSION: 1. Possible small residual right pneumothorax, see discussion above. 2. Improving subcutaneous emphysema in the supraclavicular regions. 3. Otherwise no significant change. Signer Name: Christina Ramos MD Signed: 08/08/2020 4:02 AM Workstation Name: [id number]
[2020-08-08] MEDS: PROPOFOL 500 MG/50 ML VIAL IV SCH ×3 (06:41→18:01)
[2020-08-08] MEDS: GABAPENTIN 300 MG CAP PO SCH ×3 (06:42→21:08)
[2020-08-08] MEDS: methylPREDNISolone Sod Succinate 40 MG/1 ML INJ IV SCH ×3 (06:46→21:27)
[2020-08-08] MEDS: HEPARIN/ 0.45% NACL DRIP 25,000 UNIT/500 ML BAG IV SCH ×2 (07:22→21:15)
[2020-08-08] MEDS: ARFORMOTEROL 15 MCG/2 ML NEBU IH SCH ×2 (08:39→20:47)
[2020-08-08] MEDS: BUDESONIDE 0.5 MG/2 ML NEBU IH SCH ×2 (08:39→20:47)
--- NOTE | 2020-08-08 08:42 | Progress Note ---
Assessment and Plan Assessment and plan: -Severe COVID-19 PNA -On vent. Sedated -Completed steroids and remdesivir -ID following -- Acute hypoxic respiratory failure Mechanically ventilated Continue antibiotics for MRSA sputum. --- Ventilator associated pneumonia from MRSA and E. coli Continue cefepime and vancomycin ID following ---Sinus tachycardia Possible PE. D-dimer >4k Started on full dose anticoagulation Plan to do Cta chest when stable Monitor hemoglobin --Pneumothorax and subcutaneous emphysema Chest x-ray today shows improvement in pneumothorax and bilateral opacities. Continue chest tube management as per rn lactation consultant Surgery recommendations appreciated -- GERD (gastroesophageal reflux disease) cont Pantoprazole --SLE (systemic lupus erythematosus related syndrome) Continue home medications-hydroxychloroquine -- DVT prophylaxis Heparin drip for possible PE. -- Full code status brief History: 50-year-old female with a past medical history of asthma, hypertension, and lupus complains of generalized body weakness, fever and shortness of breath. Patient states the symptoms started right after she was discharged from [facility] on 07/05. She has associated wheezing, fever, cough and she has been using her inhalers with no significant effect. She also has associated diarrhea. Of note, she was hospitalized here in [facility] on 06/28 for asthma exacerbation and had a negative Covid test during the admission. She was treated and discharged. She presented to [facility] for further evaluation after discharge from here and over there, she was found to have positive COVID-19 test and she was placed on steroids and subsequently discharged on Eliquis prophylaxis for DVT. She states that she did not receive remdesivir during the admission. She was discharged from [facility] on 07/05. She went home and felt worse. She said that she passed out about 2 times. Due to persistent symptoms, she called EMS who brought her to [facility] for further evaluation. Daily course: 07/07. Patient seen and examined at bedside this morning. Patient is wheezing and slightly short of breath. Change steroids to Solu-Medrol 60 every 6. Added formoterol and budesonide. ID evaluation pending. Started patient on remdesivir as she is short of breath. 07/07: Placed on BIPAP this AM. Will need pulm evaluation. Solumedrol 60mg q6. STAT blood gas ordered. She will be transferred to [facility]. 07/08: Patient took oxygen off and attempts to go to the bathroom and subsequently became hypoxemic with sats down into the low 80s. Patient became weak short of breath. After that time patient had persistent coughing and cannot maintain sats until nonrebreather was placed. Patient is transferred to the ICU unit and monitored for respiratory failure possibly requiring intubation. 07/09: ID recommended for convalescent plasma, ordered. Patient intubated overnight. Continue to monitor clinically, scheduled lab, follow inflammatory markers 07/10: Wait for convalescent plasma transfusion, wean off from ventilator as tolerated 07/11: Called patient's daughter and updated. Continue to wean off vent as tolerated, continue tube feeding, monitor vital sign CBC BMP daily. 07/12: remains intubated and sedated. follow inflammatory markers - wean off vent as tolerated 07/13: wean off vent as tolerated, cxr in the am. reviewed vitals 07/14: remains intubated, has not received convalescent plasma yet. Reviewed vitals, tolerating tube feeding. Wean off vent per critical care as tolerated. 07/15: cont to provide supportive care, wean off vent as tolerated - difficult to wean off. 07/16: CXR findings improving, cont to wean off vent 07/17: Follow inflammatory markers, monitor off antibiotics. Wean off vent per pulmonary as tolerated 07/18: Wean off vent per pulmonary as tolerated,Follow inflammatory markers, monitor off antibiotics. 07/19: Wean off vent per pulmonary as tolerated,Follow inflammatory markers, monitor off antibiotics. SBT trial 07/20: Wean off vent as tolerated, continue supportive care, follow inflammatory markers 07/21: continue supportive care, follow inflammatory markers, wean off vent as tolerated 07/22: Continue to wean off from ventilator as tolerated per pulmonary recommendation, follow inflammatory markers. Repeat CBC BMP in the morning. We will repeat Covid test tomorrow to see if patient cleared the infection. 07/23. Continue to wean off from ventilator as tolerated per pulmonary recommendation, follow inflammatory markers. Currently AC mode, rate 16, tidal volume 450 with FiO2 75%vand PEEP 14 07/24/2020. Continue ventilatory support with AC mode, rate 16, tidal volume 450, FiO2 100% and PEEP of 16. Continue Brovana and Pulmicort. Continue IV steroids 40 mg IV every 8 hours. Anticoagulation with Lovenox 30 mg twice daily. Patient currently sedated with Versed and fentanyl. 07/25/2020. Continue ventilatory support with AC mode, rate 16, tidal volume 450, FiO2 75% and PEEP of 16. Continue Brovana and Pulmicort. Continue IV steroids 40 mg IV every 8 hours. Anticoagulation with Lovenox 30 mg twice daily. Patient currently sedated with Versed and fentanyl. Continue to wean per pulmonary recommendations. 07/26/2020. Continue ventilatory support with AC mode, rate 16, tidal volume 450, FiO2 85% and PEEP of 16. Continue Brovana and Pulmicort. Continue IV steroids 40 mg IV every 8 hours. Anticoagulation with Lovenox 30 mg twice daily. Patient currently sedated with Versed and fentanyl. Continue to wean per protocol. 07/27/2020. Continue ventilatory support with AC mode, rate 16, tidal volume 450, FiO2 100% and PEEP of 16. Patient with increased oxygen requirements the past couple of days. Continue Brovana and Pulmicort. Continue IV steroids 40 mg IV every 8 hours. Anticoagulation with Lovenox 30 mg twice daily. Patient currently sedated with Versed and fentanyl. Dose of Lasix given by pulmonary yesterday to achieve negative fluid balance. Follow-up serial chest x-ray 07/28/2020. Continue ventilatory support with AC mode, rate 16, tidal volume 450, FiO2 100% and PEEP of 16. Wean FiO2 per protocol. Continue Brovana and Pulmicort. Continue IV steroids 40 mg IV every 8 hours. Anticoagulation with Lovenox 30 mg twice daily. Patient currently sedated with Versed and fentanyl. 07/29/2020. Continue ventilatory support with AC mode, rate 16, tidal volume 450, FiO2 100% and PEEP of 16. Wean FiO2 per protocol. Continue Brovana and Pulmicort. Continue IV steroids 40 mg IV every 8 hours. Anticoagulation with Lovenox 30 mg twice daily. Wean sedation as tolerated. 07/30. Continue ventilatory support with AC mode, rate 16, tidal volume 450, FiO2 100% and PEEP of 16. Wean FiO2 per protocol. Continue Brovana and Pulmicort. Continue IV steroids 40 mg IV every 8 hours. Anticoagulation with Lovenox 30 mg twice daily. Wean sedation as tolerated. 07/31. Still ventilated. On sedatives. Renal function worse today. nephrology has been consulted. Started patient on IV hydration. BC - GN rods and staph aureus. She is on vancomycin. 08/01. Still ventilated. On sedatives. Renal function worse today. nephrology has been consulted. Started patient on IV hydration. BC - GN rods and staph aureus. She is on vancomycin. 08/02. Chest xray shows worsening pneumothorax. Chest tube in place. On vent and sedated 08/03. Continue ventilatory support with AC mode, rate 30, tidal volume 4000, FiO2 100% and PEEP of 16. Wean FiO2 per protocol. Continue Brovana and Pulmicort. Anticoagulation with Lovenox 30 mg twice daily. Wean sedation as tolerated. 08/04. Now has a left chest tube in place due to worsening pneumothorax. She also has subcutaneous emphysema. ID on board - on IV antibiotics-cefepime and vancomycin. ID following. 08/05. Patient is more tachycardic today with heart rate in 130s overnight. Chest x-ray shows improvement in pneumothoraces and bilateral opacities. Patient likely has a PE. Patient has been started on full anticoagulation. Still maintained on IV antibiotics. Continue ventilatory support. 08/06/2020; patient's Covid positive, pneumothorax on chest tube. Patient is likely has PE and started on heparin drip. Patient is intubated and sedated and pulmonary is following. 08/07/2020; patient's Covid positive, pneumothorax on chest tube. Patient is likely has PE and started on heparin drip. Patient is intubated and sedated and pulmonary is following. 08/08/2020; patient's Covid positive, pneumothorax on chest tube. Patient is likely has PE and started on heparin drip. Patient is intubated and sedated and pulmonary is following. The high probability of a clinically significant, sudden or life threatening deterioration of the [[employer], respiratory, ANCHOR TACKER] system(s) required my full and direct attention, intervention and personal management. The aggregate critical care time was [32] minutes. This time is in addition to time spent performing reported procedures but includes the following: [x] Data Review and interpretation [x] Patient assessment and monitoring of vital signs [x] Documentation [x] Medication orders and management History Interval history: Patient was seen and evaluated this morning patient is intubated and on mechanical ventilation Hospitalist Physical - Physical exam Narrative exam: Patient is intubated and on mechanical ventilation, FiO2 60%, sedated The patient appeared well nourished and normally developed. Vital signs as documented. Head exam is unremarkable. No scleral icterus . Neck is without jugular venous distension, thyromegaly, or carotid bruits. Lungs are clear to auscultation. Cardiac exam reveals regular rate and Rhythm. Abdominal exam reveals normal bowel sounds, nontender, no organomegaly. Extremities are nonedematous and both femoral and pedal pulses are normal. ANCHOR TACKER: Sedated - Constitutional Vitals: Temp Pulse Resp BP Pulse Ox 98.9 F 95 H 30 H 138/75 100 08/08/20 03:34 08/08/20 08:37 08/08/20 08:00 08/08/20 08:37 08/08/20 08:37 General appearance: Present: no acute distress, well-nourished Results - Labs CBC & Chem 7: 08/07/20 02:06 08/07/20 02:06 Labs: Laboratory Last Values WBC 18.0 K/mm3 (4.5-11.0) H 08/07/20 02:06 RBC 2.91 M/mm3 (3.65-5.03) L 08/07/20 02:06 Hgb 8.5 gm/dl (10.1-14.3) L 08/07/20 02:06 Hct 27.2 % (30.3-42.9) L 08/07/20 02:06 MCV 93 fl (79-97) 08/07/20 02:06 MCH 29 pg (28-32) 08/07/20 02:06 MCHC 31 % (30-34) 08/07/20 02:06 RDW 17.7 % (13.2-15.2) H 08/07/20 02:06 Plt Count 270 K/mm3 (140-440) 08/07/20 02:06 Lymph % (Auto) 5.3 % (13.4-35.0) L 08/07/20 02:06 [place] % (Auto) 1.8 % (0.0-7.3) 08/07/20 02:06 Eos % (Auto) 0.3 % (0.0-4.3) 08/07/20 02:06 Baso % (Auto) 0.5 % (0.0-1.8) 08/07/20 02:06 Lymph # (Auto) 1.0 K/mm3 (1.2-5.4) L 08/07/20 02:06 [place] # (Auto) 0.3 K/mm3 (0.0-0.8) 08/07/20 02:06 Eos # (Auto) 0.1 K/mm3 (0.0-0.4) 08/07/20 02:06 Baso # (Auto) 0.1 K/mm3 (0.0-0.1) 08/07/20 02:06 Add Manual Diff Complete 08/06/20 04:00 Total Counted 100 08/06/20 04:00 Seg Neutrophils % Spooling Machine Operator 08/07/20 02:06 Seg Neuts % (Manual) 86.0 % (40.0-70.0) H 08/06/20 04:00 Band Neutrophils % 4.0 % 08/06/20 04:00 Lymphocytes % (Manual) 5.0 % (13.4-35.0) L 08/06/20 04:00 Reactive Lymphs % (Man) 0 % 08/06/20 04:00 Monocytes % (Manual) 2.0 % (0.0-7.3) 08/06/20 04:00 Eosinophils % (Manual) 0 % (0.0-4.3) 08/06/20 04:00 Basophils % (Manual) 0 % (0.0-1.8) 08/06/20 04:00 Metamyelocytes % 3.0 % 08/06/20 04:00 Myelocytes % 0 % 08/06/20 04:00 Promyelocytes % 0 % 08/06/20 04:00 Blast Cells % 0 % 08/06/20 04:00 Nucleated RBC % Not Reportable 08/06/20 04:00 Seg Neutrophils # 16.6 K/mm3 (1.8-7.7) H 08/07/20 02:06 Seg Neutrophils # Man 10.8 K/mm3 (1.8-7.7) H 08/06/20 04:00 Band Neutrophils # 0.5 K/mm3 08/06/20 04:00 Lymphocytes # (Manual) 0.6 K/mm3 (1.2-5.4) L 08/06/20 04:00 Abs React Lymphs (Man) 0.0 K/mm3 08/06/20 04:00 Monocytes # (Manual) 0.3 K/mm3 (0.0-0.8) 08/06/20 04:00 Eosinophils # (Manual) 0.0 K/mm3 (0.0-0.4) 08/06/20 04:00 Basophils # (Manual) 0.0 K/mm3 (0.0-0.1) 08/06/20 04:00 Metamyelocytes # 0.4 K/mm3 08/06/20 04:00 Myelocytes # 0.0 K/mm3 08/06/20 04:00 Promyelocytes # 0.0 K/mm3 08/06/20 04:00 Blast Cells # 0.0 K/mm3 08/06/20 04:00 Pathologist Review 08/03/20 04:49 WBC Morphology Not Reportable 08/06/20 04:00 Hypersegmented Neuts Not Reportable 08/06/20 04:00 Hyposegmented Neuts Not Reportable 08/06/20 04:00 Hypogranular Neuts Not Reportable 08/06/20 04:00 Smudge Cells Not Reportable 08/06/20 04:00 Toxic Granulation Not Reportable 08/06/20 04:00 Toxic Vacuolation Not Reportable 08/06/20 04:00 Dohle Bodies Not Reportable 08/06/20 04:00 Pelger-Huet Anomaly Not Reportable 08/06/20 04:00 Savanna Rods Not Reportable 08/06/20 04:00 Platelet Estimate Consistent w auto 08/06/20 04:00 Clumped Platelets Not Reportable 08/06/20 04:00 Plt Clumps, EDTA Not Reportable 08/06/20 04:00 Large Platelets Not Reportable 08/06/20 04:00 Giant Platelets Not Reportable 08/06/20 04:00 Platelet Satelliting Not Reportable 08/06/20 04:00 Plt Morphology Comment Not Reportable 08/06/20 04:00 RBC Morphology Not Reportable 08/06/20 04:00 Dimorphic RBCs Not Reportable 08/06/20 04:00 Polychromasia Few 08/06/20 04:00 Hypochromasia 1+ 08/06/20 04:00 Poikilocytosis Not Reportable 08/06/20 04:00 Anisocytosis Few 08/06/20 04:00 Microcytosis Not Reportable 08/06/20 04:00 Macrocytosis Not Reportable 08/06/20 04:00 Spherocytes Not Reportable 08/06/20 04:00 Pappenheimer Bodies Not Reportable 08/06/20 04:00 Sickle Cells Not Reportable 08/06/20 04:00 Target Cells Not Reportable 08/06/20 04:00 Tear Drop Cells Not Reportable 08/06/20 04:00 Ovalocytes Not Reportable 08/06/20 04:00 Helmet Cells Not Reportable 08/06/20 04:00 Raza-Quinn Bodies Not Reportable 08/06/20 04:00 [place] Rings Not Reportable 08/06/20 04:00 [place] Cells Not Reportable 08/06/20 04:00 Bite Cells Not Reportable 08/06/20 04:00 Crenated Cell Not Reportable 08/06/20 04:00 Elliptocytes Not Reportable 08/06/20 04:00 Acanthocytes (Spur) Not Reportable 08/06/20 04:00 Rouleaux Not Reportable 08/06/20 04:00 Hemoglobin C Crystals Not Reportable 08/06/20 04:00 Schistocytes Rare 08/06/20 04:00 Malaria parasites Not Reportable 08/06/20 04:00 Junaid Bodies Not Reportable 08/06/20 04:00 Hem Pathologist Commnt No 08/06/20 04:00 PT 15.4 Sec. (12.2-14.9) H 08/05/20 13:35 INR 1.22 (0.87-1.13) H 08/05/20 13:35 APTT 30.5 Sec. (24.2-36.6) 08/05/20 13:35 D-Dimer 4748.32 ng/mlDDU (0-234) H 08/05/20 13:35 Heparin Anti-Xa Level 0.39 U.I./ml (0.3-0.7) 08/08/20 Unknown ABG pH 7.379 pH Units (7.350-7.450) 08/07/20 04:00 POC ABG pCO2 50.5 mmHg (32.0-48.0) H 08/06/20 Unknown ABG pCO2 47.9 mm Hg 08/07/20 04:00 POC ABG pO2 70.5 mmHg (83-108) L 08/06/20 Unknown ABG pO2 111.4 mm Hg (80.0-90.0) H 08/07/20 04:00 POC ABG HCO3 26.4 08/06/20 Unknown ABG HCO3 27.6 mmol/L (20.0-26.0) H 08/07/20 04:00 ABG O2 Saturation 97.9 % (95.0-99.0) 08/07/20 04:00 ABG O2 Content 11.6 (0.0-44) 08/07/20 04:00 POC ABG Base Excess 0.3 08/06/20 Unknown ABG Base Excess 2.1 mmol/L (-2.0-3.0) 08/07/20 04:00 ABG Hemoglobin 8.5 gm/dl (12.0-16.0) L 08/07/20 04:00 ABG Oxyhemoglobin 90.2 (94-98) L 08/06/20 21:11 ABG Carboxyhemoglobin 2.1 % (0.0-5.0) 08/07/20 04:00 ABG Methemoglobin 0.6 % (0.0-1.5) 08/07/20 04:00 ABG Sodium 143.7 mmol/L (136.0-145.0) 08/06/20 Unknown ABG Potassium 4.0 mmol/L (3.40-4.50) 08/06/20 Unknown ABG Chloride 113.0 mmol/L (98-107) H 08/06/20 Unknown ABG Glucose 204 mg/dL (65-95) H 08/06/20 Unknown Oxyhemoglobin 95.3 % (95.0-99.0) 08/07/20 04:00 Carboxyhemoglobin 1.7 (0.5-1.5) H 08/06/20 21:11 FiO2 100 % 08/07/20 04:00 Sodium 146 mmol/L (137-145) H 08/07/20 02:06 Potassium 4.1 mmol/L (3.6-5.0) 08/07/20 02:06 Chloride 110.9 mmol/L (98-107) H 08/07/20 02:06 Carbon Dioxide 23 mmol/L (22-30) 08/07/20 02:06 Anion Gap 16 mmol/L 08/07/20 02:06 BUN 27 mg/dL (7-17) H 08/07/20 02:06 Creatinine 0.5 mg/dL (0.6-1.2) L 08/07/20 02:06 Estimated GFR > 60 ml/min 08/07/20 02:06 BUN/Creatinine Ratio 54 % 08/07/20 02:06 Glucose 187 mg/dL (65-100) H 08/07/20 02:06 POC Glucose 232 mg/dL (70-105) H 08/08/20 05:54 Lactic Acid 1.80 mmol/L (0.7-2.0) 07/31/20 14:14 Calcium 8.6 mg/dL (8.4-10.2) 08/07/20 02:06 Phosphorus 3.20 mg/dL (2.5-4.5) 07/08/20 16:13 Magnesium 2.20 mg/dL (1.7-2.3) 07/08/20 16:13 Ferritin 964.8 ng/mL (10.0-200.0) H 07/31/20 14:14 Total Bilirubin 0.20 mg/dL (0.1-1.2) 08/06/20 04:00 AST 15 units/L (5-40) 08/06/20 04:00 ALT 77 units/L (7-56) H 08/06/20 04:00 Alkaline Phosphatase 70 units/L (35-129) 08/06/20 04:00 Lactate Dehydrogenase 585 units/L (91-180) H 07/31/20 14:14 C-Reactive Protein 26.40 mg/dL (0.00-1.30) H 08/05/20 13:35 Total Protein 5.0 g/dL (6.3-8.2) L 08/06/20 04:00 Albumin 2.2 g/dL (3.9-5) L 08/06/20 04:00 Albumin/Globulin Ratio 0.8 % 08/06/20 04:00 Triglycerides 337 mg/dL (2-149) H 08/05/20 13:35 Procalcitonin 1.39 ng/mL (<0.15) 08/05/20 13:35 Arterial Blood Glucose 204 mg/dL (65-95) H 08/06/20 Unknown Arterial Blood Ionized Calcium 4.8 mg/dL (4.6-5.3) 08/06/20 Unknown Urine Color Yellow (Yellow) 07/11/20 09:30 Urine Turbidity Clear (Clear) 07/11/20 09:30 Urine pH 5.0 (5.0-7.0) 07/11/20 09:30 Ur Specific [place] 1.028 (1.003-1.030) 07/11/20 09:30 Urine Protein <15 mg/dl mg/dL (Negative) 07/11/20 09:30 Urine Glucose (UA) Neg mg/dL (Negative) 07/11/20 09:30 Urine Ketones Neg mg/dL (Negative) 07/11/20 09:30 Urine Blood Neg (Negative) 07/11/20 09:30 Urine Nitrite Neg (Negative) 07/11/20 09:30 Urine Bilirubin Neg (Negative) 07/11/20 09:30 Urine Urobilinogen 2.0 mg/dL (<2.0) 07/11/20 09:30 Ur Leukocyte Esterase Neg (Negative) 07/11/20 09:30 Urine WBC (Auto) 1.0 /HPF (0.0-6.0) 07/11/20 09:30 Urine RBC (Auto) 1.0 /HPF (0.0-6.0) 07/11/20 09:30 U Epithel Cells (Auto) 1.0 /HPF (0-13.0) 07/11/20 09:30 Urine Mucus Few /HPF 07/11/20 09:30 Urine Creatinine 89.2 mg/dL (0.1-20.0) H 07/31/20 16:00 Urine Sodium 26 mmol/L 07/31/20 16:00 Urine Total Protein 108 mg/dL (5-11.8) H 07/31/20 16:00 Vancomycin Trough 27.0 ug/mL (5.0-20.0) H 08/05/20 20:07 Random Vancomycin 7.9 ug/mL (0-40.0) 08/02/20 06:37 Coronavirus (PCR) Positive (Negative) A 07/23/20 Unknown SARS-CoV-2 IgG Ab Reactive (NonReactive) A 07/15/20 14:30 Blood Type O POSITIVE 07/09/20 15:30 Antibody Screen Negative 07/09/20 15:30 Microbiology: Microbiology 08/06/20 23:46 Peripheral/Venous Blood Culture - Preliminary NO GROWTH AFTER 24 HOURS 08/06/20 22:57 Peripheral/Venous Blood Culture - Preliminary NO GROWTH AFTER 24 HOURS - Diagnostic Impressions Diagnostic Impressions: Echocardiogram 07/19/20 13:13 Transthoracic Echocardiogram Indication: CHF BP: 106/58 Conclusions *The left ventricular systolic function is within normal limits. There are no wall motion abnormalities observed. *The estimated ejection fraction is 60-65%. *Normal left ventricular diastolic filling is observed. Findings Procedure Info: The study quality is fair. Left Ventricle: The left ventricular chamber size, wall thickness and systolic function are within normal limits. There are no wall motion abnormalities observed. Ejection fraction is normal. The estimated ejection fraction is 60-65%. Normal left ventricular diastolic filling is observed. Left Atrium: The left atrium is normal in size with no visual thrombus identified. Right Ventricle: The right ventricular chamber size and systolic function are within normal limits. Right Atrium: The right atrium appears normal. Aortic Valve: The aortic valve is trileaflet. The leaflets are thin with normal excursion. There is no aortic stenosis or regurgitation present. Mitral Valve: The mitral valve leaflets are mildly thickened. There is trace of mitral regurgitation. There is no evidence of mitral stenosis. Tricuspid Valve: The tricuspid valve leaflets are normal. There is trace tricuspid regurgitation. The right ventricular systolic pressure is calculated at 14 mmHg. There is no tricuspid stenosis. Pulmonic Valve: The pulmonic valve appears normal. There is mild pulmonic regurgitation. There is no pulmonic stenosis. Pericardium: The pericardium appears normal. Aorta: The aorta appears normal. Pulmonary Artery: The main pulmonary artery appears normal. Venous: The inferior vena cava appears normal in size. There is a greater than 50% respiratory change in the inferior vena cava dimension. Measurements Chambers 2D Name Value Normal Range IVSd (2D) 1.08 cm (0.6 - 1.1) LVPWd (2D) 0.91 cm (0.6 - 1.1) LVIDd (2D) 4.61 cm (3.7 - 5.6) LVIDs (2D) 3.12 cm (2 - 3.8) LV FS (2D) 32.38 % - EF Teichholz (2D) 60.72 % - Ao root diameter (2D) 3.01 cm (2 - 3.7) Volumes/Mass Name Value Normal Range LA ESV SP 4CH (A/L) 57.18 ml - LA ESV SP 2CH (A/L) 62.63 ml - LA ESV BP (A/L) 60.68 ml - LA ESV BP (A/L) index 28.22 ml/m2 - LA ESV SP 4CH (MOD) 51.17 ml - LA ESV SP 2CH (MOD) 57.8 ml - LA ESV BP (MOD) 54.73 ml - LA ESV BP (MOD) index 25.45 ml/m2 - LV EDV SP 4CH (MOD) 115.34 ml - LV ESV SP 4CH (MOD) 43.26 ml - EF SP 4CH (MOD) 62.5 % - LV EDV SP 2CH (MOD) 43.71 ml - LV ESV SP 2CH (MOD) 17.14 ml - EF SP 2CH (MOD) 60.79 % - LV EDV BP 73.15 ml - LV ESV BP 27.92 ml - BP EF (MOD) 61.83 % - Diastolic/Systolic Function Name Value Normal Range MV E-wave Vmax 0.88 m/sec - MV deceleration time 157.66 msec - MV A-wave Vmax 0.91 m/sec - MV E:A ratio 0.96 ratio - Aortic Valve Name Value Normal Range AV Vmax 1.54 m/sec - AV VTI 31.46 cm - AV peak gradient 9.51 mmHg - AV mean gradient 5.1 mmHg - LVOT diameter 1.95 cm - LVOT Vmax 1.21 m/sec - LVOT VTI 27.59 cm - LVOT peak gradient 5.83 mmHg - LVOT mean gradient 3.3 mmHg - SV LVOT 82.76 ml - SMITH (continuity Vmax) 2.35 cm2 - SMITH (continuity VTI) 2.63 cm2 - Ascending Ao 2.94 cm - Tricuspid Valve Name Value Normal Range TV E-wave Vmax 0.49 m/sec - TR Vmax 1.72 m/sec - TR peak gradient 11.86 mmHg - RAP 3 mmHg - RVSP 14 mmHg - IVC diameter 1.91 cm (1.2 - 2.3) Pulmonic Valve/Qp:Qs Name Value Normal Range PV Vmax 0.94 m/sec - PV peak gradient 3.54 mmHg - OK end-diastolic Vmax 0.54 m/sec - RVOT Vmax 0.68 m/sec - RVOT VTI 13.18 cm - RVOT peak gradient 1.82 mmHg - PV acceleration time 117.98 msec - [place]/IV: Voiding Method Indwelling Catheter IV Catheter Type [Left Upper PICC Line arm] IV Catheter Type [Right INT / Saline Lock Forearm] IV Catheter Type [Left Wrist] INT / Saline Lock IV Catheter Type [Left Hand] Peripheral IV Active Medications - Current Medications Current Medications: Generic Name Dose Route Start Last Admin Trade Name Freq PRN Reason Stop Dose Admin Acetaminophen 650 mg 07/06/20 13:39 07/27/20 18:34 Tylenol PO 650 mg Q4H PRN Administration Pain MILD(1-3)/Fever >100.5/WILLETT Albuterol/Ipratropium 1 ampul 08/05/20 11:33 Duoneb *Not For Prn Use* IH TIDRT PRN Overdose Alprazolam 0.5 mg 07/07/20 12:28 07/27/20 03:15 Xanax PO 0.5 mg Q8H PRN Administration Anxiety Lipase/Protease/Amylase 1 each 07/08/20 14:50 Pancreazchristina Price 10,500 Unit FEEDTUBE PRN PRN For Clogged Feeding Tube Arformoterol Tartrate 15 mcg 07/07/20 09:15 08/08/20 08:39 Brovana Nebu IH 15 mcg Q12HRT ROMMEL Administration Ascorbic Acid 500 mg 07/08/20 22:00 08/07/20 21:21 Vitamin C PO 500 mg BID ROMMEL Administration Aspirin 81 mg 07/06/20 14:00 08/07/20 11:01 Baby Aspirin PO 81 mg QDAY ROMMEL Administration Budesonide 0.5 mg 07/07/20 09:15 08/08/20 08:39 Pulmicort IH 0.5 mg Q12HRT ROMMEL Administration Chlordiazepoxide HCl 75 mg 07/30/20 13:00 08/08/20 05:00 Librium PO 75 mg Q8H ROMMEL Administration Dextrose 50 ml 07/12/20 16:58 D50w (25gm) Syringe IV Q30MIN PRN Hypoglycemia Protocol Docusate Sodium 100 mg 07/16/20 22:00 08/07/20 21:21 Colace PO 100 mg BID ROMMEL Administration Fentanyl 50 mcg 07/08/20 13:16 07/29/20 15:45 Sublimaze IV 50 mcg Q10MIN PRN Administration ANALGESIA Gabapentin 600 mg 07/25/20 14:00 08/08/20 06:42 Gabapentin PO 600 mg Q8HR ROMMEL Administration Hydrophilic Ointment 1 applic 07/08/20 13:16 07/22/20 23:01 Vaseline Lip Therapy TP 1 applic Q2HR PRN Administration Dry Lips Hydroxychloroquine Sulfate 200 mg 07/07/20 10:00 08/07/20 11:01 Plaquenil PO 200 mg QDAY ROMMEL Administration Fentanyl Citrate 2,000 mcg in 100 mls @ 4.825 mls/hr 07/08/20 14:00 08/08/20 04:05 Fentanyl Drip Premix IV 4 mcg/kg/hr TITR ROMMEL 19.3 mls/hr Administration Protocol 1 MCG/KG/HR Midazolam HCl 100 mg/ Sodium 100 mls @ 2 mls/hr 07/08/20 15:00 08/08/20 08:14 Chloride IV 5 mg/hr TITR ROMMEL 5 mls/hr Titration Protocol 2 MG/HR Sodium Chloride 500 mls @ 10 mls/hr 07/15/20 15:00 Nacl 0.9% 500 Ml IV DIRECT ROMMEL Norepinephrine 4 mg in 250 mls @ 7.5 mls/hr 07/27/20 05:00 Levophed Drip 4 Mg/Ns 250 Ml IV TITR ROMMEL Protocol 2 MCG/MIN Vasopressin 20 unit/ Sodium 101 mls @ 9.09 mls/hr 07/30/20 13:00 08/04/20 14:25 Chloride IV 0 units/min TITR ROMMEL 0 mls/hr Titration Protocol 0.03 UNITS/MIN Phenylephrine HCl 100 mg/ 100 mls @ 3 mls/hr 07/30/20 15:00 08/04/20 10:08 Sodium Chloride IV 0 mcg/min TITR ROMMEL 0 mls/hr Titration Protocol 50 MCG/MIN Dopamine HCl/Dextrose 800 mg in 250 mls @ 3.679 mls/hr 07/31/20 22:00 Intropin Drip 800 Mg/D5w 250 Ml IV TITR ROMMEL Protocol 2 MCG/KG/MIN Heparin Sodium/Sodium Chloride 25,000 unit in 500 mls @ 30 mls/hr 08/05/20 13:00 08/08/20 07:22 Heparin/ 0.45% Nacl-25,000 Unit/500 Ml IV 1,700 units/hr TITR ROMMEL 34 mls/hr Administration Protocol 1,500 UNITS/HR Propofol 500 mg in 50 mls @ 2.946 mls/hr 08/05/20 13:00 08/08/20 06:41 Propofol IV 10 mcg/kg/min TITR ROMMEL 5.892 mls/hr Administration Protocol 5 MCG/KG/MIN Insulin Glargine 20 units 08/08/20 10:00 Lantus SUB-Q DAILY ROMMEL Insulin Human Regular 0 unit 08/01/20 00:00 08/08/20 06:42 Humulin R SUB-Q 4 unit Q6HR ROMMEL Administration Protocol Lansoprazole 30 mg 07/10/20 10:00 08/07/20 11:01 Prevacid Solutab FEEDTUBE 30 mg QDAY ROMMEL Administration Methylprednisolone Sodium Succinate 40 mg 07/22/20 14:00 08/08/20 06:46 Solu-Medrol IV 40 mg Q8H ROMMEL Administration Metoclopramide HCl 5 mg 08/05/20 12:00 08/08/20 06:42 Reglan IV 5 mg Q6HR ROMMEL Administration Multi-Ingred Cream/Lotion/Oil/Oint 1 applic 07/08/20 13:16 Artificial Tears Ophth Oint OU Q4HR PRN Dry Eye(s) Ondansetron HCl 4 mg 07/06/20 13:39 07/08/20 10:44 Zofran IV 4 mg Q8H PRN Administration Nausea And Vomiting Polyethylene Glycol 17 gm 07/29/20 12:00 08/07/20 11:02 Miralax 3350 PO 17 gm DAILY ROMMEL Administration Quetiapine Fumarate 200 mg 07/25/20 22:00 08/07/20 21:21 Seroquel PO 200 mg BID ROMMEL Administration Quetiapine Fumarate 100 mg 07/25/20 22:00 08/07/20 21:21 Seroquel PO 100 mg BID ROMMEL Administration Simple Syrup 15 ml 07/08/20 14:50 Simple Syrup FEEDTUBE PRN PRN Hypoglycemia Simple Syrup 30 ml 07/08/20 14:50 Simple Syrup FEEDTUBE PRN PRN Hypoglycemia Sodium Bicarbonate 325 mg 07/08/20 14:50 Sodium Bicarbonate FEEDTUBE PRN PRN For Clogged Feeding Tube Sodium Chloride 10 ml 07/06/20 14:00 08/07/20 21:19 Sodium Chloride Flush Syringe 10 Ml IV 10 ml BID ROMMEL Administration Sodium Chloride 10 ml 07/06/20 13:39 07/26/20 06:31 Sodium Chloride Flush Syringe 10 Ml IV 10 ml PRN PRN Administration LINE FLUSH Venlafaxine HCl 37.5 mg 07/07/20 10:00 08/07/20 11:01 Effexor PO 37.5 mg DAILY ROMMEL Administration Zinc Sulfate 220 mg 07/08/20 22:00 08/07/20 21:21 Zinc Sulfate PO 220 mg BID ROMMEL Administration Nutrition/Malnutrition Assess - Dietary Evaluation Nutrition/Malnutrition Findings: Nutrition Notes Start: 07/08/20 14:02 Freq: Status: Active Protocol: Document 08/07/20 11:40 EN (Rec: 08/07/20 11:48 EN [id number]) Co-Sign 08/07/20 11:40 LM Nutrition Notes Initial or Follow up Reassessment Current Diagnosis Hypertension,Heart Failure Other Pertinent Diagnosis Acute respiratory failure, COVID(+), GERD, Lupus, Anemia Current Diet Vital AF 1.2 at 55 mL/hr (goal rate) Labs/Tests Na 146 BUN 27 Glu 187 POC Glu 161 Pertinent Medications Fentanyl Humulin R Solu-medrol Propofol at 2.946ml/hr (78kcal ) Height 5 ft 5 in Weight 115 kg [place] Body Weight (kg) 56.81 BMI 42.2 Weight change and time frame Wt change noted Weight Status Morbidly Obese Subjective/Other Information F/u for TF tolerance and rate advancement. Pt is tolerating TF at goal rate. Per RN, pt still has gas in stomach but has decreased gastric residuals. Percent of energy/protein needs met: 81%/87% Burn Absent Trauma Absent GI Symptoms None Current % PO Negligible Minimum of two criteria No physical signs of malnutrition #1 Nutrition Diagnosis Inadequate oral intake Diagnosis Progress(for reassessment Continues documentation) Is patient on ventilator? Yes Is Patient Ambulatory and/or Out of Bed No REE-([place]-confined to bed) 2140.284 Kcal/Kg value to use for calculation 17 Approximate Energy Requirements Using 1955 kcal/Kg Calculation Used for Recommendations Kcal/kg Additional Notes Pro: greater than 114 g (>2 g/ kg IBW) Fluid: 1ml/kcal or per MD Nutrition Intervention Change Diet Order: Continue TF Nutrition Support: Vital AF at 55 ml/hr Flush 75 ml q4h. For hypernatremia, flush 200ml q4h Kcal 1,584 Protein (gm) 99 Fluid (mL) 1,070 Goal #1 Meet at least 80% of protein and energy needs via TF Anticipated Discharge Needs: Cannot determine at this time Follow-Up By: 08/09/20 Additional Comments F/u for TF tolerance and Na labs
[2020-08-08] MEDS: INSULIN GLARGINE 100 UNITS/ML SUB-Q SCH (09:08)
[2020-08-08] MEDS: QUEtiapine 100 MG TAB PO SCH ×2 (09:09→21:11)
[2020-08-08] MEDS: HYDROXYCHLOROQUINE 200 MG TAB PO SCH (09:09)
[2020-08-08] MEDS: ASPIRIN 81 MG TAB CHEW PO SCH (09:09)
[2020-08-08] MEDS: DOCUSATE SODIUM 100 MG/10 ML ORAL LIQD PO SCH ×2 (09:09→21:08)
[2020-08-08] MEDS: QUEtiapine 200 MG TAB PO SCH ×2 (09:09→21:09)
[2020-08-08] MEDS: LANSOPRAZOLE 30 MG SOLUTAB FEEDTUBE SCH (09:09)
[2020-08-08] MEDS: POLYETHYLENE GLYCOL 3350 17 GM POWDER PO SCH ×2 (09:09→09:17)
[2020-08-08] MEDS: ASCORBIC ACID 500 MG TAB PO SCH ×2 (09:09→21:11)
[2020-08-08] MEDS: VENLAFAXINE 37.5 MG TAB PO SCH (09:09)
[2020-08-08] MEDS: ZINC SULFATE 220 MG CAP PO SCH ×2 (09:09→21:28)
[2020-08-08] MEDS: MIDAZOLAM 100 MG in SODIUM CHLORIDE 0.9% 80 ML IV SCH (13:01)
--- NOTE | 2020-08-08 14:45 | XRay Report ---
CHEST 1 VIEW 08/08/2020 1:31 PM INDICATION / CLINICAL INFORMATION: Placement of chest tubes. COMPARISON: 3:27 AM FINDINGS: SUPPORT DEVICES: Bilateral chest tubes are unchanged. Esophagogastric tube remains in stomach. Endotr acheal tube is unchanged in position. Endotracheal tube balloon is overinflated appears wider than th e diameter of the trachea. HEART / MEDIASTINUM: Stable. LUNGS / PLEURA: Bilateral pulmonary opacities are unchanged. Tiny residual right pneumothorax is unch anged. ADDITIONAL FINDINGS: Subcutaneous soft tissue emphysema is unchanged. IMPRESSION: 1. Bilateral chest tubes appear unchanged. 2. Endotracheal tube balloon appears overinflated. Clinical correlation is recommended. Signer Name: Yaneth Flores MD Signed: 08/08/2020 2:41 PM Workstation Name: [id number]
[2020-08-08] MEDS ORDERED: fentaNYL 100 MCG/2 ML INJ IV PRN (15:24)
--- NOTE | 2020-08-08 16:29 | Progress Note ---
Assessment and Plan Cultures: Blood cultures 07/07/2020 no growth SARS COV2- IgG negative Sputum culture 07/08/2020 usual respiratory kerwin Blood culture 07/11/2020 no growth Blood culture 07/19/2020 no growth Tracheal aspirate 07/30/2020 MRSA and E. coli Blood cultures 08/03/2020 no growth today A/P: 50-year-old female with CHF, asthma, hypertension, lupus was admitted to the hospital with complaints of fever, shortness of breath. Of note, she was seen last week due to an asthma exacerbation when her SARS-CoV-2 PCR and IgG were both negative. She was treated with steroids. She reportedly then went to [place] and tested positive for COVID-19 and was discharged from the hospital on 07/05/2020: #Sepsis with septic shock: off pressors, no fever for 48 hours, worsening leukocytosis. Repeat blood cultures negative. Urinalysis negative. Source VAP +/- sinusitis. procal 119-->1.3, CRP 49-->26. #Acute hypoxic respiratory failure: Remains intubated, likely secondary to VAP and bilateral pneumothorax. #Bilateral pneumothorax: Status post bilateral chest tube, surgery on board #VAP: Secondary to MRSA and E. coli. Chest x-ray not especially concerning, however worsening pulmonary status with associated fevers. Procalcitonin massively elevated even in the setting of acute renal injury. #Critical Covid pneumonia: Completed remdesivir, IV steroids. #Lupus: On Plaquenil. #CHF #Asthma #MAHOGANY: Possible in setting of vancomycin, resolved Recs: -Follow-up repeat blood cultures -Monitor off antibiotics Guarded prognosis will follow Eneida Quiñones MD [facility] ([facility]) Office [phone] Subjective Date of service: 08/08/20 Principal diagnosis: Ac hypoxemic resp failure; PNA; COVID-19 infxn; SLE; Asthma exacerbation Interval history: No fever for 2 days. Remains intubated. Objective - Exam Narrative Exam: General appearance: Sedated intubated Eyes: anicteric sclerae, moist conjunctivae; no lid-lag; PERRLA HENT: Normocephalic, Atraumatic; normal external ears, nares +NGT w purulence, oropharynx limited endotracheal tube in place Neck: supple, tracheal midline, no JVD Lungs: Bilateral scattered crackles, bilateral chest tubes, chest tubes x2 on the right CV: Tachycardic Abdomen: Soft, non-tender; no masses or hepatosplenomegaly Extremities: Bilateral leg edema Skin: Bilateral neck and chest subcutaneous emphysema Psych: Sedated Neuro: Sedated - Constitutional Vitals: Vital Signs Temp Pulse Resp BP Pulse Ox 99.3 F 104 H 14 141/86 95 08/08/20 12:00 08/08/20 12:30 08/08/20 12:30 08/08/20 12:30 08/08/20 12:30 Temperature -Last 24 Hours Temperature 99.3 F Temperature 98.7 F Temperature 98.9 F Temperature 98.7 F Temperature 98.0 F - Labs CBC & Chem 7: 08/07/20 02:06 08/07/20 02:06 Labs: Abnormal lab results 08/07/20 08/07/20 08/07/20 Range/Units 18:25 22:31 23:39 Heparin Anti-Xa Level 0.25 L (0.3-0.7) U.I./ml POC Glucose 195 H 220 H (70-105) mg/dL 08/08/20 08/08/20 Range/Units 05:54 11:56 Heparin Anti-Xa Level (0.3-0.7) U.I./ml POC Glucose 232 H 155 H (70-105) mg/dL
--- NOTE | 2020-08-08 17:18 | Progress Note ---
Assessment and Plan 50-year-old female with CHF, asthma, hypertension, lupus was admitted to the hospital with complaints of fever, shortness of breath. Of note, she was seen last week due to an asthma exacerbation when her SARS-CoV-2 PCR and IgG were both negative. She was treated with steroids. She reportedly then went to [place] and tested positive for COVID-19 and was discharged from the hospital on 07/05/2020 readmitted here with: Acute hypoxemic respiratory failure, now on MVS Bilateral pneumonia, left greater than right lungs. COVID-19 infection-SEVERE/CRITICAL . History of congestive heart failure. History of lupus erythematosus. Leukocytosis. Tobacco use disorder. Acute asthma exacerbation. History of hypertension. Obesity Remains critically ill, on going intermittent desaturations. Proning per facility protocol for next 5 days- day 3- Monitor renal function and hemodynamics closely. Conservative fluid management. [place] catheter while being proned Vasopressor support as indicated Daily ABG, PA/FIO2 ratio Wean FiO2 for O2 sats>92% -Continue Seroquel at 300mg BID while monitoring for arrhythmias and QTc - continue airborne and contact isolation per facility protocol -Continue to monitor off antibiotics - continue systemic steroids for Asthma / severe COVID infection - continue Daily assessment for readiness to wean. Ventilatory demands are too high at this time - VAP bundle addressed, aspiration precautions, HOB >40 - continue lung protective strategies - accuchecks with glycemic control per SSI (While critically ill target blood glucose of 140-180 mg/dL; avoid hypoglycemia) - sedation for target RASS -1 to -2 - avoid nephrotoxins, renally dose all medications - prn analgesia per CPOT score - Maintenance of sleep-wake cycle, avoid delirium - G.I. & VTE prophylaxis( Famotidine and Enoxaparin) - PT/OT/ROM exercises - continue mobility protocols for pressure ulcer prevention as tolerated - continue other care per attending / other consultants - discharge planning ongoing concurrently COVID SPECIFIC INTERVENTIONS -On steroids -Prophylactic anticoagulation based on d-dimer -s/p Remdesivir -s/p Convalescent plasma, was IgG negative -Zinc & Vit C supplementation -Contact and airborne isolation per facility protocols CONDITION: CRITICAL PROGNOSIS: GUARDED CODE STATUS: FULL CODE The high probability of a clinically significant, sudden or life-threatening deterioration of the [respiratory, cardiovascular & neurologic] system(s) required my full and direct attention, intervention and personal management. The aggregate critical care time was [35] minutes without overlap. Time includes spent on; [x] Data Review and interpretation [x] Patient assessment and monitoring of vital signs [x] Documentation [x] Medication orders and management Subjective Date of service: 08/08/20 Principal diagnosis: Ac hypoxemic resp failure; PNA; COVID-19 infxn; SLE; Asthma exacerbation Interval history: Patient is seen today for: Acute hypoxemic respiratory failure; Bilateral pneumonia; COVID-19 infection; H/O CHF; SLE; Acute asthma exacerbation. HTN; Obesity Seen and examined at bedside; 24hour events reviewed; nursing and respiratory care staff consulted; no adverse overnight events reported to me; resting peace fully in bed; remains on MVS Midazolam, Fentanyl and Propofol. She is sedated, supine No dys-synchrony at this time. No N/V/F/C Objective Vital Signs - 12hr 08/08/20 08/08/20 08/08/20 05:30 05:45 06:00 Temperature Pulse Rate 89 89 89 Pulse Rate [ Bilateral Throughout] Pulse Rate [ From Monitor] Respiratory 22 18 13 Rate Respiratory Rate [Bilateral Throughout] Blood Pressure 162/75 142/70 149/70 O2 Sat by Pulse 100 100 100 Oximetry 08/08/20 08/08/20 08/08/20 06:16 06:30 06:45 Temperature Pulse Rate 90 90 92 H Pulse Rate [ Bilateral Throughout] Pulse Rate [ From Monitor] Respiratory 19 17 24 Rate Respiratory Rate [Bilateral Throughout] Blood Pressure 139/71 143/70 155/71 O2 Sat by Pulse 100 100 100 Oximetry 08/08/20 08/08/20 08/08/20 07:00 07:16 07:30 Temperature Pulse Rate 91 H 91 H 92 H Pulse Rate [ Bilateral Throughout] Pulse Rate [ From Monitor] Respiratory 26 H 31 H 30 H Rate Respiratory Rate [Bilateral Throughout] Blood Pressure 151/72 146/72 152/72 O2 Sat by Pulse 100 100 100 Oximetry 08/08/20 08/08/20 08/08/20 07:46 08:00 08:16 Temperature 98.7 F Pulse Rate 93 H 91 H 90 Pulse Rate [ Bilateral Throughout] Pulse Rate [ 91 H From Monitor] Respiratory 30 H 30 H 31 H Rate Respiratory Rate [Bilateral Throughout] Blood Pressure 147/70 145/68 138/66 O2 Sat by Pulse 100 100 100 Oximetry 08/08/20 08/08/20 08/08/20 08:30 08:37 08:46 Temperature Pulse Rate 93 H 95 H 92 H Pulse Rate [ Bilateral Throughout] Pulse Rate [ From Monitor] Respiratory 31 H 10 L Rate Respiratory Rate [Bilateral Throughout] Blood Pressure 138/75 138/75 151/76 O2 Sat by Pulse 99 100 98 Oximetry 08/08/20 08/08/20 08/08/20 09:00 09:16 09:25 Temperature Pulse Rate 94 H 93 H Pulse Rate [ 92 H Bilateral Throughout] Pulse Rate [ From Monitor] Respiratory 10 L 21 Rate Respiratory 31 H Rate [Bilateral Throughout] Blood Pressure 149/79 156/75 O2 Sat by Pulse 98 99 Oximetry 08/08/20 08/08/20 08/08/20 09:30 09:41 09:46 Temperature Pulse Rate 94 H 94 H 95 H Pulse Rate [ Bilateral Throughout] Pulse Rate [ From Monitor] Respiratory 10 L 11 L Rate Respiratory Rate [Bilateral Throughout] Blood Pressure 147/77 147/77 175/79 O2 Sat by Pulse 99 95 95 Oximetry 08/08/20 08/08/20 08/08/20 10:00 10:16 10:30 Temperature Pulse Rate 96 H 97 H 97 H Pulse Rate [ Bilateral Throughout] Pulse Rate [ From Monitor] Respiratory 11 L 15 14 Rate Respiratory Rate [Bilateral Throughout] Blood Pressure 147/80 152/78 146/77 O2 Sat by Pulse 95 95 95 Oximetry 08/08/20 08/08/20 08/08/20 10:46 11:00 11:16 Temperature Pulse Rate 98 H 99 H 100 H Pulse Rate [ Bilateral Throughout] Pulse Rate [ From Monitor] Respiratory 18 14 18 Rate Respiratory Rate [Bilateral Throughout] Blood Pressure 144/74 142/73 141/78 O2 Sat by Pulse 96 96 96 Oximetry 08/08/20 08/08/20 08/08/20 11:30 11:45 12:00 Temperature 99.3 F Pulse Rate 102 H 103 H 102 H Pulse Rate [ Bilateral Throughout] Pulse Rate [ 102 H From Monitor] Respiratory 14 15 17 Rate Respiratory Rate [Bilateral Throughout] Blood Pressure 160/77 171/87 138/74 O2 Sat by Pulse 97 96 97 Oximetry 08/08/20 08/08/20 08/08/20 12:03 12:16 12:30 Temperature Pulse Rate 103 H 101 H 104 H Pulse Rate [ Bilateral Throughout] Pulse Rate [ From Monitor] Respiratory 11 L 14 Rate Respiratory Rate [Bilateral Throughout] Blood Pressure 138/74 118/79 141/86 O2 Sat by Pulse 96 96 95 Oximetry 08/08/20 08/08/20 08/08/20 12:46 13:00 13:15 Temperature Pulse Rate 104 H 106 H 103 H Pulse Rate [ Bilateral Throughout] Pulse Rate [ From Monitor] Respiratory 13 14 14 Rate Respiratory Rate [Bilateral Throughout] Blood Pressure 159/84 180/87 168/85 O2 Sat by Pulse 95 95 95 Oximetry 08/08/20 08/08/20 08/08/20 13:30 13:46 14:00 Temperature Pulse Rate 104 H 101 H 119 H Pulse Rate [ Bilateral Throughout] Pulse Rate [ From Monitor] Respiratory 14 13 20 Rate Respiratory Rate [Bilateral Throughout] Blood Pressure 168/89 168/89 168/89 O2 Sat by Pulse 95 95 100 Oximetry 08/08/20 08/08/20 08/08/20 14:16 14:30 14:45 Temperature Pulse Rate 140 H 135 H 127 H Pulse Rate [ Bilateral Throughout] Pulse Rate [ From Monitor] Respiratory 31 H 22 12 Rate Respiratory Rate [Bilateral Throughout] Blood Pressure 141/79 141/79 133/76 O2 Sat by Pulse 96 98 98 Oximetry 08/08/20 08/08/20 08/08/20 15:00 15:16 15:30 Temperature Pulse Rate 121 H 119 H 119 H Pulse Rate [ Bilateral Throughout] Pulse Rate [ From Monitor] Respiratory 15 15 14 Rate Respiratory Rate [Bilateral Throughout] Blood Pressure 121/79 138/80 128/83 O2 Sat by Pulse 98 98 99 Oximetry 08/08/20 08/08/20 08/08/20 15:46 16:00 16:16 Temperature 99.7 F H Pulse Rate 115 H 114 H 114 H Pulse Rate [ Bilateral Throughout] Pulse Rate [ From Monitor] Respiratory 13 11 L 13 Rate Respiratory Rate [Bilateral Throughout] Blood Pressure 122/80 111/81 121/82 O2 Sat by Pulse 99 99 100 Oximetry 08/08/20 08/08/20 08/08/20 16:30 16:46 17:00 Temperature Pulse Rate 114 H 114 H 115 H Pulse Rate [ Bilateral Throughout] Pulse Rate [ From Monitor] Respiratory 13 12 19 Rate Respiratory Rate [Bilateral Throughout] Blood Pressure 126/84 121/82 115/85 O2 Sat by Pulse 100 99 100 Oximetry 08/08/20 17:01 Temperature Pulse Rate 112 H Pulse Rate [ Bilateral Throughout] Pulse Rate [ From Monitor] Respiratory Rate Respiratory Rate [Bilateral Throughout] Blood Pressure 115/85 O2 Sat by Pulse 97 Oximetry Constitutional: no acute distress, other (middle aged obese female with mildly increased respiratory effort at rest on MVS) Eyes: non-icteric ENT: oropharynx moist, other (ETT 23cm YANET) Neck: supple, no lymphadenopathy, no JVD Effort: mildly labored Ascultation: Bilateral: diminished breath sounds, rhonchi, other (two R. chest tubes and 1 on left (leaks on right side)) Percussion: Bilateral: not dull Cardiovascular: regular rate and rhythm, other (S1,S2) Gastrointestinal: normoactive bowel sounds, soft, non-tender, non-distended Integumentary: normal Extremities: no cyanosis, no edema, pulses normal, no ischemia or petechiae Neurologic: pupils equal and round, other (sedated) Psychiatric: other (unable to assess re: AMS / sedation) CBC and BMP: 08/07/20 02:06 08/07/20 02:06 ABG, PT/INR, D-dimer: ABG ABG pH 7.379 pH Units (7.350-7.450) 08/07/20 04:00 POC ABG pCO2 50.5 mmHg (32.0-48.0) H 08/06/20 Unknown ABG pCO2 47.9 mm Hg 08/07/20 04:00 POC ABG pO2 70.5 mmHg (83-108) L 08/06/20 Unknown ABG pO2 111.4 mm Hg (80.0-90.0) H 08/07/20 04:00 POC ABG HCO3 26.4 08/06/20 Unknown ABG O2 Saturation 97.9 % (95.0-99.0) 08/07/20 04:00 PT/INR, D-dimer PT 15.4 Sec. (12.2-14.9) H 08/05/20 13:35 INR 1.22 (0.87-1.13) H 08/05/20 13:35 D-Dimer 4748.32 ng/mlDDU (0-234) H 08/05/20 13:35 Abnormal lab findings: Abnormal Labs 11/03/1807/06/20 07/07/20 05:24 17:16 04:50 WBC 13.5 H 12.7 H RBC Hgb Hct MCH MCHC RDW Plt Count Lymph % (Auto) Lymph # (Auto) Seg Neutrophils % Seg Neuts % (Manual) 86.0 H 87.0 H Lymphocytes % (Manual) 6.0 L 9.0 L Eosinophils % (Manual) Nucleated RBC % Seg Neutrophils # Seg Neutrophils # Man 11.6 H 11.0 H Lymphocytes # (Manual) 0.8 L 1.1 L Eosinophils # (Manual) PT INR D-Dimer Heparin Anti-Xa Level ABG pH POC ABG pCO2 POC ABG pO2 ABG pO2 ABG HCO3 ABG O2 Saturation ABG Base Excess ABG Hemoglobin ABG Oxyhemoglobin ABG Sodium ABG Potassium ABG Chloride ABG Glucose Oxyhemoglobin Carboxyhemoglobin Sodium Potassium Chloride Carbon Dioxide BUN Creatinine Glucose POC Glucose Lactic Acid Calcium Ferritin AST ALT Lactate Dehydrogenase 242 H C-Reactive Protein 7.30 H Total Protein Albumin Triglycerides Arterial Blood Glucose Arterial Blood Ionized Calcium Urine Creatinine Urine Total Protein Vancomycin Trough Coronavirus (PCR) SARS-CoV-2 IgG Ab 07/07/20 07/07/20 07/07/20 04:50 14:22 14:22 WBC RBC Hgb Hct MCH MCHC RDW Plt Count Lymph % (Auto) Lymph # (Auto) Seg Neutrophils % Seg Neuts % (Manual) Lymphocytes % (Manual) Eosinophils % (Manual) Nucleated RBC % Seg Neutrophils # Seg Neutrophils # Man Lymphocytes # (Manual) Eosinophils # (Manual) PT INR D-Dimer Heparin Anti-Xa Level ABG pH POC ABG pCO2 POC ABG pO2 ABG pO2 ABG HCO3 ABG O2 Saturation ABG Base Excess ABG Hemoglobin ABG Oxyhemoglobin ABG Sodium ABG Potassium ABG Chloride ABG Glucose Oxyhemoglobin Carboxyhemoglobin Sodium Potassium Chloride Carbon Dioxide BUN 18 H Creatinine Glucose 138 H POC Glucose Lactic Acid Calcium Ferritin 228.2 H AST ALT Lactate Dehydrogenase 277 H C-Reactive Protein Total Protein 5.9 L Albumin 3.4 L Triglycerides Arterial Blood Glucose Arterial Blood Ionized Calcium Urine Creatinine Urine Total Protein Vancomycin Trough Coronavirus (PCR) SARS-CoV-2 IgG Ab 07/08/20 07/08/20 07/08/20 11:18 12:57 16:13 WBC RBC Hgb Hct MCH MCHC RDW Plt Count Lymph % (Auto) Lymph # (Auto) Seg Neutrophils % Seg Neuts % (Manual) Lymphocytes % (Manual) Eosinophils % (Manual) Nucleated RBC % Seg Neutrophils # Seg Neutrophils # Man Lymphocytes # (Manual) Eosinophils # (Manual) PT INR D-Dimer Heparin Anti-Xa Level ABG pH POC ABG pCO2 POC ABG pO2 ABG pO2 39.3 L* ABG HCO3 ABG O2 Saturation 76.8 L ABG Base Excess ABG Hemoglobin ABG Oxyhemoglobin ABG Sodium ABG Potassium ABG Chloride ABG Glucose Oxyhemoglobin 75.3 L Carboxyhemoglobin Sodium Potassium Chloride Carbon Dioxide 20 L D BUN Creatinine Glucose 135 H POC Glucose 106 H Lactic Acid Calcium 8.0 L Ferritin AST ALT Lactate Dehydrogenase C-Reactive Protein Total Protein Albumin Triglycerides Arterial Blood Glucose Arterial Blood Ionized Calcium Urine Creatinine Urine Total Protein Vancomycin Trough Coronavirus (PCR) SARS-CoV-2 IgG Ab 07/08/20 07/08/20 07/09/20 17:04 18:45 04:00 WBC 15.6 H RBC Hgb Hct MCH MCHC RDW Plt Count Lymph % (Auto) 4.7 L Lymph # (Auto) 0.7 L Seg Neutrophils % Seg Neuts % (Manual) Lymphocytes % (Manual) Eosinophils % (Manual) Nucleated RBC % Seg Neutrophils # 14.2 H Seg Neutrophils # Man Lymphocytes # (Manual) Eosinophils # (Manual) PT INR D-Dimer Heparin Anti-Xa Level ABG pH POC ABG pCO2 POC ABG pO2 ABG pO2 181.8 H ABG HCO3 ABG O2 Saturation 99.1 H ABG Base Excess ABG Hemoglobin 11.4 L ABG Oxyhemoglobin ABG Sodium ABG Potassium ABG Chloride ABG Glucose Oxyhemoglobin Carboxyhemoglobin Sodium Potassium Chloride Carbon Dioxide BUN Creatinine Glucose POC Glucose 117 H Lactic Acid Calcium Ferritin AST ALT Lactate Dehydrogenase C-Reactive Protein Total Protein Albumin Triglycerides Arterial Blood Glucose Arterial Blood Ionized Calcium Urine Creatinine Urine Total Protein Vancomycin Trough Coronavirus (PCR) SARS-CoV-2 IgG Ab 07/09/20 07/09/20 07/09/20 04:00 04:00 04:49 WBC RBC Hgb Hct MCH MCHC RDW Plt Count Lymph % (Auto) Lymph # (Auto) Seg Neutrophils % Seg Neuts % (Manual) Lymphocytes % (Manual) Eosinophils % (Manual) Nucleated RBC % Seg Neutrophils # Seg Neutrophils # Man Lymphocytes # (Manual) Eosinophils # (Manual) PT INR D-Dimer Heparin Anti-Xa Level ABG pH POC ABG pCO2 POC ABG pO2 ABG pO2 ABG HCO3 26.2 H ABG O2 Saturation ABG Base Excess ABG Hemoglobin 11.2 L ABG Oxyhemoglobin ABG Sodium ABG Potassium ABG Chloride ABG Glucose Oxyhemoglobin 94.9 L Carboxyhemoglobin Sodium Potassium Chloride Carbon Dioxide BUN Creatinine Glucose 158 H POC Glucose Lactic Acid Calcium 8.2 L Ferritin 320.0 H AST ALT Lactate Dehydrogenase 391 H C-Reactive Protein 9.50 H Total Protein 5.9 L Albumin 3.2 L Triglycerides Arterial Blood Glucose Arterial Blood Ionized Calcium Urine Creatinine Urine Total Protein Vancomycin Trough Coronavirus (PCR) SARS-CoV-2 IgG Ab 07/09/20 07/09/20 07/09/20 11:56 17:49 23:39 WBC RBC Hgb Hct MCH MCHC RDW Plt Count Lymph % (Auto) Lymph # (Auto) Seg Neutrophils % Seg Neuts % (Manual) Lymphocytes % (Manual) Eosinophils % (Manual) Nucleated RBC % Seg Neutrophils # Seg Neutrophils # Man Lymphocytes # (Manual) Eosinophils # (Manual) PT INR D-Dimer Heparin Anti-Xa Level ABG pH POC ABG pCO2 POC ABG pO2 ABG pO2 ABG HCO3 ABG O2 Saturation ABG Base Excess ABG Hemoglobin ABG Oxyhemoglobin ABG Sodium ABG Potassium ABG Chloride ABG Glucose Oxyhemoglobin Carboxyhemoglobin Sodium Potassium Chloride Carbon Dioxide BUN Creatinine Glucose POC Glucose 156 H 119 H 145 H Lactic Acid Calcium Ferritin AST ALT Lactate Dehydrogenase C-Reactive Protein Total Protein Albumin Triglycerides Arterial Blood Glucose Arterial Blood Ionized Calcium Urine Creatinine Urine Total Protein Vancomycin Trough Coronavirus (PCR) SARS-CoV-2 IgG Ab 07/10/20 07/10/20 07/10/20 03:32 05:26 11:22 WBC RBC Hgb Hct MCH MCHC RDW Plt Count Lymph % (Auto) Lymph # (Auto) Seg Neutrophils % Seg Neuts % (Manual) Lymphocytes % (Manual) Eosinophils % (Manual) Nucleated RBC % Seg Neutrophils # Seg Neutrophils # Man Lymphocytes # (Manual) Eosinophils # (Manual) PT INR D-Dimer Heparin Anti-Xa Level ABG pH POC ABG pCO2 POC ABG pO2 ABG pO2 75.7 L ABG HCO3 27.5 H ABG O2 Saturation ABG Base Excess ABG Hemoglobin 9.3 L ABG Oxyhemoglobin ABG Sodium ABG Potassium ABG Chloride ABG Glucose Oxyhemoglobin 94.7 L Carboxyhemoglobin Sodium Potassium Chloride Carbon Dioxide BUN Creatinine Glucose POC Glucose 156 H 148 H Lactic Acid Calcium Ferritin AST ALT Lactate Dehydrogenase C-Reactive Protein Total Protein Albumin Triglycerides Arterial Blood Glucose Arterial Blood Ionized Calcium Urine Creatinine Urine Total Protein Vancomycin Trough Coronavirus (PCR) SARS-CoV-2 IgG Ab 07/10/20 07/10/20 07/10/20 12:10 12:10 18:20 WBC 14.1 H RBC 3.33 L Hgb 9.9 L Hct MCH MCHC RDW Plt Count Lymph % (Auto) Lymph # (Auto) Seg Neutrophils % Seg Neuts % (Manual) 89.0 H Lymphocytes % (Manual) 8.0 L Eosinophils % (Manual) Nucleated RBC % Seg Neutrophils # Seg Neutrophils # Man 12.5 H Lymphocytes # (Manual) 1.1 L Eosinophils # (Manual) PT INR D-Dimer Heparin Anti-Xa Level ABG pH POC ABG pCO2 POC ABG pO2 ABG pO2 ABG HCO3 ABG O2 Saturation ABG Base Excess ABG Hemoglobin ABG Oxyhemoglobin ABG Sodium ABG Potassium ABG Chloride ABG Glucose Oxyhemoglobin Carboxyhemoglobin Sodium Potassium Chloride Carbon Dioxide BUN 21 H Creatinine Glucose 154 H POC Glucose 181 H Lactic Acid Calcium 8.0 L Ferritin AST ALT Lactate Dehydrogenase C-Reactive Protein Total Protein 5.4 L Albumin 3.0 L Triglycerides Arterial Blood Glucose Arterial Blood Ionized Calcium Urine Creatinine Urine Total Protein Vancomycin Trough Coronavirus (PCR) SARS-CoV-2 IgG Ab 07/10/20 07/11/20 07/11/20 23:51 04:05 05:43 WBC RBC Hgb Hct MCH MCHC RDW Plt Count Lymph % (Auto) Lymph # (Auto) Seg Neutrophils % Seg Neuts % (Manual) Lymphocytes % (Manual) Eosinophils % (Manual) Nucleated RBC % Seg Neutrophils # Seg Neutrophils # Man Lymphocytes # (Manual) Eosinophils # (Manual) PT INR D-Dimer Heparin Anti-Xa Level ABG pH 7.348 L POC ABG pCO2 POC ABG pO2 ABG pO2 93.6 H ABG HCO3 28.5 H ABG O2 Saturation ABG Base Excess ABG Hemoglobin 10.1 L ABG Oxyhemoglobin ABG Sodium ABG Potassium ABG Chloride ABG Glucose Oxyhemoglobin Carboxyhemoglobin Sodium Potassium Chloride Carbon Dioxide BUN Creatinine Glucose POC Glucose 116 H 132 H Lactic Acid Calcium Ferritin AST ALT Lactate Dehydrogenase C-Reactive Protein Total Protein Albumin Triglycerides Arterial Blood Glucose Arterial Blood Ionized Calcium Urine Creatinine Urine Total Protein Vancomycin Trough Coronavirus (PCR) SARS-CoV-2 IgG Ab 07/11/20 07/11/20 07/11/20 09:11 09:11 09:11 WBC 15.8 H RBC 3.44 L Hgb Hct MCH MCHC RDW Plt Count Lymph % (Auto) Lymph # (Auto) Seg Neutrophils % Seg Neuts % (Manual) 92.0 H Lymphocytes % (Manual) 4.0 L Eosinophils % (Manual) Nucleated RBC % Seg Neutrophils # Seg Neutrophils # Man 14.5 H Lymphocytes # (Manual) 0.6 L Eosinophils # (Manual) PT INR D-Dimer 360.61 H Heparin Anti-Xa Level ABG pH POC ABG pCO2 POC ABG pO2 ABG pO2 ABG HCO3 ABG O2 Saturation ABG Base Excess ABG Hemoglobin ABG Oxyhemoglobin ABG Sodium ABG Potassium ABG Chloride ABG Glucose Oxyhemoglobin Carboxyhemoglobin Sodium Potassium Chloride 107.1 H Carbon Dioxide BUN 22 H Creatinine Glucose 149 H POC Glucose Lactic Acid Calcium 7.8 L Ferritin AST ALT Lactate Dehydrogenase 483 H C-Reactive Protein 2.30 H Total Protein 4.9 L Albumin 3.0 L Triglycerides Arterial Blood Glucose Arterial Blood Ionized Calcium Urine Creatinine Urine Total Protein Vancomycin Trough Coronavirus (PCR) SARS-CoV-2 IgG Ab 07/11/20 07/11/20 07/11/20 09:11 12:16 17:55 WBC RBC Hgb Hct MCH MCHC RDW Plt Count Lymph % (Auto) Lymph # (Auto) Seg Neutrophils % Seg Neuts % (Manual) Lymphocytes % (Manual) Eosinophils % (Manual) Nucleated RBC % Seg Neutrophils # Seg Neutrophils # Man Lymphocytes # (Manual) Eosinophils # (Manual) PT INR D-Dimer Heparin Anti-Xa Level ABG pH POC ABG pCO2 POC ABG pO2 ABG pO2 ABG HCO3 ABG O2 Saturation ABG Base Excess ABG Hemoglobin ABG Oxyhemoglobin ABG Sodium ABG Potassium ABG Chloride ABG Glucose Oxyhemoglobin Carboxyhemoglobin Sodium Potassium Chloride Carbon Dioxide BUN Creatinine Glucose POC Glucose 157 H 166 H Lactic Acid Calcium Ferritin 371.2 H AST ALT Lactate Dehydrogenase C-Reactive Protein Total Protein Albumin Triglycerides Arterial Blood Glucose Arterial Blood Ionized Calcium Urine Creatinine Urine Total Protein Vancomycin Trough Coronavirus (PCR) SARS-CoV-2 IgG Ab 07/12/20 07/12/20 07/12/20 00:32 04:00 04:00 WBC RBC 3.52 L Hgb Hct MCH MCHC RDW Plt Count Lymph % (Auto) Lymph # (Auto) Seg Neutrophils % Seg Neuts % (Manual) 90.0 H Lymphocytes % (Manual) 4.0 L Eosinophils % (Manual) Nucleated RBC % Seg Neutrophils # Seg Neutrophils # Man 9.5 H Lymphocytes # (Manual) 0.4 L Eosinophils # (Manual) PT INR D-Dimer Heparin Anti-Xa Level ABG pH POC ABG pCO2 POC ABG pO2 ABG pO2 ABG HCO3 ABG O2 Saturation ABG Base Excess ABG Hemoglobin ABG Oxyhemoglobin ABG Sodium ABG Potassium ABG Chloride ABG Glucose Oxyhemoglobin Carboxyhemoglobin Sodium Potassium Chloride Carbon Dioxide 31 H BUN 21 H Creatinine Glucose 175 H POC Glucose 178 H Lactic Acid Calcium 8.0 L Ferritin AST ALT Lactate Dehydrogenase C-Reactive Protein Total Protein 5.4 L Albumin 3.0 L Triglycerides Arterial Blood Glucose Arterial Blood Ionized Calcium Urine Creatinine Urine Total Protein Vancomycin Trough Coronavirus (PCR) SARS-CoV-2 IgG Ab 07/12/20 07/12/20 07/12/20 04:01 05:47 12:09 WBC RBC Hgb Hct MCH MCHC RDW Plt Count Lymph % (Auto) Lymph # (Auto) Seg Neutrophils % Seg Neuts % (Manual) Lymphocytes % (Manual) Eosinophils % (Manual) Nucleated RBC % Seg Neutrophils # Seg Neutrophils # Man Lymphocytes # (Manual) Eosinophils # (Manual) PT INR D-Dimer Heparin Anti-Xa Level ABG pH 7.465 H POC ABG pCO2 POC ABG pO2 ABG pO2 ABG HCO3 ABG O2 Saturation ABG Base Excess ABG Hemoglobin 10.6 L ABG Oxyhemoglobin ABG Sodium ABG Potassium ABG Chloride ABG Glucose 177 H Oxyhemoglobin Carboxyhemoglobin Sodium Potassium Chloride Carbon Dioxide BUN Creatinine Glucose POC Glucose 185 H 227 H Lactic Acid Calcium Ferritin AST ALT Lactate Dehydrogenase C-Reactive Protein Total Protein Albumin Triglycerides Arterial Blood Glucose 177 H Arterial Blood Ionized Calcium 4.5 L Urine Creatinine Urine Total Protein Vancomycin Trough Coronavirus (PCR) SARS-CoV-2 IgG Ab 07/12/20 07/12/20 07/13/20 17:34 23:57 05:06 WBC RBC Hgb Hct MCH MCHC RDW Plt Count Lymph % (Auto) Lymph # (Auto) Seg Neutrophils % Seg Neuts % (Manual) Lymphocytes % (Manual) Eosinophils % (Manual) Nucleated RBC % Seg Neutrophils # Seg Neutrophils # Man Lymphocytes # (Manual) Eosinophils # (Manual) PT INR D-Dimer Heparin Anti-Xa Level ABG pH POC ABG pCO2 POC ABG pO2 ABG pO2 ABG HCO3 ABG O2 Saturation ABG Base Excess ABG Hemoglobin ABG Oxyhemoglobin ABG Sodium ABG Potassium ABG Chloride ABG Glucose Oxyhemoglobin Carboxyhemoglobin Sodium Potassium Chloride Carbon Dioxide BUN Creatinine Glucose POC Glucose 202 H 163 H 166 H Lactic Acid Calcium Ferritin AST ALT Lactate Dehydrogenase C-Reactive Protein Total Protein Albumin Triglycerides Arterial Blood Glucose Arterial Blood Ionized Calcium Urine Creatinine Urine Total Protein Vancomycin Trough Coronavirus (PCR) SARS-CoV-2 IgG Ab 07/13/20 07/13/20 07/13/20 07:20 07:20 07:20 WBC 20.5 H RBC Hgb Hct MCH MCHC RDW Plt Count Lymph % (Auto) Lymph # (Auto) Seg Neutrophils % Seg Neuts % (Manual) 93.0 H Lymphocytes % (Manual) 3.0 L Eosinophils % (Manual) Nucleated RBC % Seg Neutrophils # Seg Neutrophils # Man 19.1 H Lymphocytes # (Manual) 0.6 L Eosinophils # (Manual) PT INR D-Dimer 826.36 H Heparin Anti-Xa Level ABG pH POC ABG pCO2 POC ABG pO2 ABG pO2 ABG HCO3 ABG O2 Saturation ABG Base Excess ABG Hemoglobin ABG Oxyhemoglobin ABG Sodium ABG Potassium ABG Chloride ABG Glucose Oxyhemoglobin Carboxyhemoglobin Sodium Potassium Chloride Carbon Dioxide 31 H BUN 25 H Creatinine Glucose 163 H POC Glucose Lactic Acid Calcium 8.1 L Ferritin AST ALT Lactate Dehydrogenase 512 H C-Reactive Protein 1.80 H Total Protein 5.8 L Albumin 3.2 L Triglycerides Arterial Blood Glucose Arterial Blood Ionized Calcium Urine Creatinine Urine Total Protein Vancomycin Trough Coronavirus (PCR) SARS-CoV-2 IgG Ab 07/13/20 07/13/20 07/13/20 07:20 11:37 17:20 WBC RBC Hgb Hct MCH MCHC RDW Plt Count Lymph % (Auto) Lymph # (Auto) Seg Neutrophils % Seg Neuts % (Manual) Lymphocytes % (Manual) Eosinophils % (Manual) Nucleated RBC % Seg Neutrophils # Seg Neutrophils # Man Lymphocytes # (Manual) Eosinophils # (Manual) PT INR D-Dimer Heparin Anti-Xa Level ABG pH POC ABG pCO2 POC ABG pO2 ABG pO2 ABG HCO3 ABG O2 Saturation ABG Base Excess ABG Hemoglobin ABG Oxyhemoglobin ABG Sodium ABG Potassium ABG Chloride ABG Glucose Oxyhemoglobin Carboxyhemoglobin Sodium Potassium Chloride Carbon Dioxide BUN Creatinine Glucose POC Glucose 232 H 210 H Lactic Acid Calcium Ferritin 219.8 H AST ALT Lactate Dehydrogenase C-Reactive Protein Total Protein Albumin Triglycerides Arterial Blood Glucose Arterial Blood Ionized Calcium Urine Creatinine Urine Total Protein Vancomycin Trough Coronavirus (PCR) SARS-CoV-2 IgG Ab 07/13/20 07/13/20 07/14/20 23:57 Unknown 05:22 WBC RBC Hgb Hct MCH MCHC RDW Plt Count Lymph % (Auto) Lymph # (Auto) Seg Neutrophils % Seg Neuts % (Manual) Lymphocytes % (Manual) Eosinophils % (Manual) Nucleated RBC % Seg Neutrophils # Seg Neutrophils # Man Lymphocytes # (Manual) Eosinophils # (Manual) PT INR D-Dimer Heparin Anti-Xa Level ABG pH 7.341 L POC ABG pCO2 POC ABG pO2 133.0 H ABG pO2 56.5 L ABG HCO3 29.7 H ABG O2 Saturation 89.3 L ABG Base Excess ABG Hemoglobin 11.0 L ABG Oxyhemoglobin ABG Sodium ABG Potassium ABG Chloride ABG Glucose 207 H Oxyhemoglobin 87.7 L Carboxyhemoglobin Sodium Potassium Chloride Carbon Dioxide BUN Creatinine Glucose POC Glucose 190 H Lactic Acid Calcium Ferritin AST ALT Lactate Dehydrogenase C-Reactive Protein Total Protein Albumin Triglycerides Arterial Blood Glucose 207 H Arterial Blood Ionized Calcium 4.5 L Urine Creatinine Urine Total Protein Vancomycin Trough Coronavirus (PCR) SARS-CoV-2 IgG Ab 07/14/20 07/14/20 07/14/20 05:54 11:16 17:50 WBC RBC Hgb Hct MCH MCHC RDW Plt Count Lymph % (Auto) Lymph # (Auto) Seg Neutrophils % Seg Neuts % (Manual) Lymphocytes % (Manual) Eosinophils % (Manual) Nucleated RBC % Seg Neutrophils # Seg Neutrophils # Man Lymphocytes # (Manual) Eosinophils # (Manual) PT INR D-Dimer Heparin Anti-Xa Level ABG pH POC ABG pCO2 POC ABG pO2 ABG pO2 ABG HCO3 ABG O2 Saturation ABG Base Excess ABG Hemoglobin ABG Oxyhemoglobin ABG Sodium ABG Potassium ABG Chloride ABG Glucose Oxyhemoglobin Carboxyhemoglobin Sodium Potassium Chloride Carbon Dioxide BUN Creatinine Glucose POC Glucose 206 H 196 H 205 H Lactic Acid Calcium Ferritin AST ALT Lactate Dehydrogenase C-Reactive Protein Total Protein Albumin Triglycerides Arterial Blood Glucose Arterial Blood Ionized Calcium Urine Creatinine Urine Total Protein Vancomycin Trough Coronavirus (PCR) SARS-CoV-2 IgG Ab 07/14/20 07/15/20 07/15/20 23:28 03:16 06:12 WBC RBC Hgb Hct MCH MCHC RDW Plt Count Lymph % (Auto) Lymph # (Auto) Seg Neutrophils % Seg Neuts % (Manual) Lymphocytes % (Manual) Eosinophils % (Manual) Nucleated RBC % Seg Neutrophils # Seg Neutrophils # Man Lymphocytes # (Manual) Eosinophils # (Manual) PT INR D-Dimer Heparin Anti-Xa Level ABG pH POC ABG pCO2 49.2 H POC ABG pO2 120.3 H ABG pO2 ABG HCO3 ABG O2 Saturation ABG Base Excess ABG Hemoglobin 9.5 L ABG Oxyhemoglobin ABG Sodium ABG Potassium ABG Chloride ABG Glucose 148 H Oxyhemoglobin Carboxyhemoglobin Sodium Potassium Chloride Carbon Dioxide BUN Creatinine Glucose POC Glucose 160 H 178 H Lactic Acid Calcium Ferritin AST ALT Lactate Dehydrogenase C-Reactive Protein Total Protein Albumin Triglycerides Arterial Blood Glucose 148 H Arterial Blood Ionized Calcium Urine Creatinine Urine Total Protein Vancomycin Trough Coronavirus (PCR) SARS-CoV-2 IgG Ab 07/15/20 07/15/20 07/15/20 09:00 12:32 14:30 WBC RBC Hgb Hct MCH MCHC RDW Plt Count Lymph % (Auto) Lymph # (Auto) Seg Neutrophils % Seg Neuts % (Manual) Lymphocytes % (Manual) Eosinophils % (Manual) Nucleated RBC % Seg Neutrophils # Seg Neutrophils # Man Lymphocytes # (Manual) Eosinophils # (Manual) PT INR D-Dimer Heparin Anti-Xa Level ABG pH POC ABG pCO2 POC ABG pO2 ABG pO2 ABG HCO3 ABG O2 Saturation ABG Base Excess ABG Hemoglobin ABG Oxyhemoglobin ABG Sodium ABG Potassium ABG Chloride ABG Glucose Oxyhemoglobin Carboxyhemoglobin Sodium Potassium Chloride Carbon Dioxide BUN Creatinine Glucose POC Glucose 173 H Lactic Acid Calcium Ferritin AST ALT Lactate Dehydrogenase 531 H C-Reactive Protein Total Protein Albumin Triglycerides Arterial Blood Glucose Arterial Blood Ionized Calcium Urine Creatinine Urine Total Protein Vancomycin Trough Coronavirus (PCR) SARS-CoV-2 IgG Ab Reactive A 07/15/20 07/15/20 07/16/20 18:24 23:35 04:03 WBC RBC Hgb Hct MCH MCHC RDW Plt Count Lymph % (Auto) Lymph # (Auto) Seg Neutrophils % Seg Neuts % (Manual) Lymphocytes % (Manual) Eosinophils % (Manual) Nucleated RBC % Seg Neutrophils # Seg Neutrophils # Man Lymphocytes # (Manual) Eosinophils # (Manual) PT INR D-Dimer Heparin Anti-Xa Level ABG pH POC ABG pCO2 POC ABG pO2 ABG pO2 72.7 L ABG HCO3 35.5 H ABG O2 Saturation ABG Base Excess 9.4 H ABG Hemoglobin 10.6 L ABG Oxyhemoglobin ABG Sodium ABG Potassium ABG Chloride ABG Glucose Oxyhemoglobin 93.6 L Carboxyhemoglobin Sodium Potassium Chloride Carbon Dioxide BUN Creatinine Glucose POC Glucose 173 H 181 H Lactic Acid Calcium Ferritin AST ALT Lactate Dehydrogenase C-Reactive Protein Total Protein Albumin Triglycerides Arterial Blood Glucose Arterial Blood Ionized Calcium Urine Creatinine Urine Total Protein Vancomycin Trough Coronavirus (PCR) SARS-CoV-2 IgG Ab 07/16/20 07/16/20 07/16/20 05:35 09:00 09:00 WBC 16.5 H RBC 3.59 L Hgb Hct MCH MCHC RDW Plt Count Lymph % (Auto) Lymph # (Auto) Seg Neutrophils % Seg Neuts % (Manual) 96.0 H Lymphocytes % (Manual) 3.0 L Eosinophils % (Manual) Nucleated RBC % Seg Neutrophils # Seg Neutrophils # Man 15.8 H Lymphocytes # (Manual) 0.5 L Eosinophils # (Manual) PT INR D-Dimer Heparin Anti-Xa Level ABG pH POC ABG pCO2 POC ABG pO2 ABG pO2 ABG HCO3 ABG O2 Saturation ABG Base Excess ABG Hemoglobin ABG Oxyhemoglobin ABG Sodium ABG Potassium ABG Chloride ABG Glucose Oxyhemoglobin Carboxyhemoglobin Sodium Potassium Chloride Carbon Dioxide 39 H D BUN 25 H Creatinine 0.4 L Glucose 167 H POC Glucose 129 H Lactic Acid Calcium 8.3 L Ferritin AST ALT Lactate Dehydrogenase C-Reactive Protein Total Protein Albumin Triglycerides Arterial Blood Glucose Arterial Blood Ionized Calcium Urine Creatinine Urine Total Protein Vancomycin Trough Coronavirus (PCR) SARS-CoV-2 IgG Ab 07/16/20 07/16/20 07/17/20 12:32 18:28 00:09 WBC RBC Hgb Hct MCH MCHC RDW Plt Count Lymph % (Auto) Lymph # (Auto) Seg Neutrophils % Seg Neuts % (Manual) Lymphocytes % (Manual) Eosinophils % (Manual) Nucleated RBC % Seg Neutrophils # Seg Neutrophils # Man Lymphocytes # (Manual) Eosinophils # (Manual) PT INR D-Dimer Heparin Anti-Xa Level ABG pH POC ABG pCO2 POC ABG pO2 ABG pO2 ABG HCO3 ABG O2 Saturation ABG Base Excess ABG Hemoglobin ABG Oxyhemoglobin ABG Sodium ABG Potassium ABG Chloride ABG Glucose Oxyhemoglobin Carboxyhemoglobin Sodium Potassium Chloride Carbon Dioxide BUN Creatinine Glucose POC Glucose 187 H 174 H 184 H Lactic Acid Calcium Ferritin AST ALT Lactate Dehydrogenase C-Reactive Protein Total Protein Albumin Triglycerides Arterial Blood Glucose Arterial Blood Ionized Calcium Urine Creatinine Urine Total Protein Vancomycin Trough Coronavirus (PCR) SARS-CoV-2 IgG Ab 07/17/20 07/17/20 07/17/20 04:30 05:47 13:03 WBC RBC Hgb Hct MCH MCHC RDW Plt Count Lymph % (Auto) Lymph # (Auto) Seg Neutrophils % Seg Neuts % (Manual) Lymphocytes % (Manual) Eosinophils % (Manual) Nucleated RBC % Seg Neutrophils # Seg Neutrophils # Man Lymphocytes # (Manual) Eosinophils # (Manual) PT INR D-Dimer Heparin Anti-Xa Level ABG pH POC ABG pCO2 POC ABG pO2 ABG pO2 ABG HCO3 38.1 H ABG O2 Saturation ABG Base Excess 11.3 H ABG Hemoglobin 10.5 L ABG Oxyhemoglobin ABG Sodium ABG Potassium ABG Chloride ABG Glucose Oxyhemoglobin Carboxyhemoglobin Sodium Potassium Chloride Carbon Dioxide BUN Creatinine Glucose POC Glucose 135 H 210 H Lactic Acid Calcium Ferritin AST ALT Lactate Dehydrogenase C-Reactive Protein Total Protein Albumin Triglycerides Arterial Blood Glucose Arterial Blood Ionized Calcium Urine Creatinine Urine Total Protein Vancomycin Trough Coronavirus (PCR) SARS-CoV-2 IgG Ab 07/17/20 07/17/20 07/18/20 16:50 23:39 04:01 WBC RBC Hgb Hct MCH MCHC RDW Plt Count Lymph % (Auto) Lymph # (Auto) Seg Neutrophils % Seg Neuts % (Manual) Lymphocytes % (Manual) Eosinophils % (Manual) Nucleated RBC % Seg Neutrophils # Seg Neutrophils # Man Lymphocytes # (Manual) Eosinophils # (Manual) PT INR D-Dimer Heparin Anti-Xa Level ABG pH POC ABG pCO2 56.8 H POC ABG pO2 61.9 L ABG pO2 ABG HCO3 ABG O2 Saturation ABG Base Excess ABG Hemoglobin 11.7 L ABG Oxyhemoglobin ABG Sodium 134.2 L ABG Potassium 4.7 H ABG Chloride 97.0 L ABG Glucose 173 H Oxyhemoglobin Carboxyhemoglobin Sodium Potassium Chloride Carbon Dioxide BUN Creatinine Glucose POC Glucose 193 H 163 H Lactic Acid Calcium Ferritin AST ALT Lactate Dehydrogenase C-Reactive Protein Total Protein Albumin Triglycerides Arterial Blood Glucose 173 H Arterial Blood Ionized Calcium Urine Creatinine Urine Total Protein Vancomycin Trough Coronavirus (PCR) SARS-CoV-2 IgG Ab 07/18/20 07/18/20 07/18/20 05:41 12:03 17:26 WBC RBC Hgb Hct MCH MCHC RDW Plt Count Lymph % (Auto) Lymph # (Auto) Seg Neutrophils % Seg Neuts % (Manual) Lymphocytes % (Manual) Eosinophils % (Manual) Nucleated RBC % Seg Neutrophils # Seg Neutrophils # Man Lymphocytes # (Manual) Eosinophils # (Manual) PT INR D-Dimer Heparin Anti-Xa Level ABG pH POC ABG pCO2 POC ABG pO2 ABG pO2 ABG HCO3 ABG O2 Saturation ABG Base Excess ABG Hemoglobin ABG Oxyhemoglobin ABG Sodium ABG Potassium ABG Chloride ABG Glucose Oxyhemoglobin Carboxyhemoglobin Sodium Potassium Chloride Carbon Dioxide BUN Creatinine Glucose POC Glucose 153 H 177 H 160 H Lactic Acid Calcium Ferritin AST ALT Lactate Dehydrogenase C-Reactive Protein Total Protein Albumin Triglycerides Arterial Blood Glucose Arterial Blood Ionized Calcium Urine Creatinine Urine Total Protein Vancomycin Trough Coronavirus (PCR) SARS-CoV-2 IgG Ab 07/18/20 07/19/20 07/19/20 23:58 04:15 05:05 WBC RBC Hgb Hct MCH MCHC RDW Plt Count Lymph % (Auto) Lymph # (Auto) Seg Neutrophils % Seg Neuts % (Manual) Lymphocytes % (Manual) Eosinophils % (Manual) Nucleated RBC % Seg Neutrophils # Seg Neutrophils # Man Lymphocytes # (Manual) Eosinophils # (Manual) PT INR D-Dimer Heparin Anti-Xa Level ABG pH 7.465 H POC ABG pCO2 49.1 H POC ABG pO2 49.4 L ABG pO2 ABG HCO3 ABG O2 Saturation ABG Base Excess ABG Hemoglobin 11.6 L ABG Oxyhemoglobin ABG Sodium 132.3 L ABG Potassium ABG Chloride 97.0 L ABG Glucose 148 H Oxyhemoglobin Carboxyhemoglobin Sodium Potassium Chloride Carbon Dioxide BUN Creatinine Glucose POC Glucose 144 H 117 H Lactic Acid Calcium Ferritin AST ALT Lactate Dehydrogenase C-Reactive Protein Total Protein Albumin Triglycerides Arterial Blood Glucose 148 H Arterial Blood Ionized Calcium Urine Creatinine Urine Total Protein Vancomycin Trough Coronavirus (PCR) SARS-CoV-2 IgG Ab 07/19/20 07/19/20 07/19/20 08:30 08:30 13:21 WBC 17.2 H RBC 3.59 L Hgb Hct MCH MCHC RDW Plt Count Lymph % (Auto) Lymph # (Auto) Seg Neutrophils % Seg Neuts % (Manual) Lymphocytes % (Manual) Eosinophils % (Manual) Nucleated RBC % Seg Neutrophils # Seg Neutrophils # Man Lymphocytes # (Manual) Eosinophils # (Manual) PT INR D-Dimer Heparin Anti-Xa Level ABG pH POC ABG pCO2 POC ABG pO2 ABG pO2 ABG HCO3 ABG O2 Saturation ABG Base Excess ABG Hemoglobin ABG Oxyhemoglobin ABG Sodium ABG Potassium ABG Chloride ABG Glucose Oxyhemoglobin Carboxyhemoglobin Sodium Potassium Chloride 95.7 L Carbon Dioxide 37 H BUN 20 H Creatinine 0.4 L Glucose 125 H POC Glucose 137 H Lactic Acid Calcium 8.1 L Ferritin AST ALT Lactate Dehydrogenase C-Reactive Protein Total Protein Albumin Triglycerides Arterial Blood Glucose Arterial Blood Ionized Calcium Urine Creatinine Urine Total Protein Vancomycin Trough Coronavirus (PCR) SARS-CoV-2 IgG Ab 07/19/20 07/19/20 07/20/20 16:29 17:28 00:25 WBC RBC Hgb Hct MCH MCHC RDW Plt Count Lymph % (Auto) Lymph # (Auto) Seg Neutrophils % Seg Neuts % (Manual) Lymphocytes % (Manual) Eosinophils % (Manual) Nucleated RBC % Seg Neutrophils # Seg Neutrophils # Man Lymphocytes # (Manual) Eosinophils # (Manual) PT INR D-Dimer Heparin Anti-Xa Level ABG pH POC ABG pCO2 53.4 H POC ABG pO2 71.0 L ABG pO2 ABG HCO3 ABG O2 Saturation ABG Base Excess ABG Hemoglobin 11.2 L ABG Oxyhemoglobin 93.6 L ABG Sodium 130.9 L ABG Potassium ABG Chloride 95.0 L ABG Glucose 188 H Oxyhemoglobin Carboxyhemoglobin Sodium Potassium Chloride Carbon Dioxide BUN Creatinine Glucose POC Glucose 174 H 188 H Lactic Acid Calcium Ferritin AST ALT Lactate Dehydrogenase C-Reactive Protein Total Protein Albumin Triglycerides Arterial Blood Glucose 188 H Arterial Blood Ionized Calcium 4.4 L Urine Creatinine Urine Total Protein Vancomycin Trough Coronavirus (PCR) SARS-CoV-2 IgG Ab 07/20/20 07/20/20 07/20/20 04:14 05:23 12:12 WBC RBC Hgb Hct MCH MCHC RDW Plt Count Lymph % (Auto) Lymph # (Auto) Seg Neutrophils % Seg Neuts % (Manual) Lymphocytes % (Manual) Eosinophils % (Manual) Nucleated RBC % Seg Neutrophils # Seg Neutrophils # Man Lymphocytes # (Manual) Eosinophils # (Manual) PT INR D-Dimer Heparin Anti-Xa Level ABG pH POC ABG pCO2 52.7 H POC ABG pO2 59.5 L ABG pO2 ABG HCO3 ABG O2 Saturation ABG Base Excess ABG Hemoglobin 10.6 L ABG Oxyhemoglobin ABG Sodium 134.4 L ABG Potassium ABG Chloride ABG Glucose 176 H Oxyhemoglobin Carboxyhemoglobin Sodium Potassium Chloride Carbon Dioxide BUN Creatinine Glucose POC Glucose 212 H 190 H Lactic Acid Calcium Ferritin AST ALT Lactate Dehydrogenase C-Reactive Protein Total Protein Albumin Triglycerides Arterial Blood Glucose 176 H Arterial Blood Ionized Calcium 4.5 L Urine Creatinine Urine Total Protein Vancomycin Trough Coronavirus (PCR) SARS-CoV-2 IgG Ab 07/20/20 07/21/20 07/21/20 16:59 00:01 04:30 WBC RBC Hgb Hct MCH MCHC RDW Plt Count Lymph % (Auto) Lymph # (Auto) Seg Neutrophils % Seg Neuts % (Manual) Lymphocytes % (Manual) Eosinophils % (Manual) Nucleated RBC % Seg Neutrophils # Seg Neutrophils # Man Lymphocytes # (Manual) Eosinophils # (Manual) PT INR D-Dimer Heparin Anti-Xa Level ABG pH 7.468 H POC ABG pCO2 POC ABG pO2 63.3 L ABG pO2 ABG HCO3 ABG O2 Saturation ABG Base Excess ABG Hemoglobin 11 L ABG Oxyhemoglobin ABG Sodium 135.0 L ABG Potassium ABG Chloride ABG Glucose 204 H Oxyhemoglobin Carboxyhemoglobin Sodium Potassium Chloride Carbon Dioxide BUN Creatinine Glucose POC Glucose 201 H 177 H Lactic Acid Calcium Ferritin AST ALT Lactate Dehydrogenase C-Reactive Protein Total Protein Albumin Triglycerides Arterial Blood Glucose 204 H Arterial Blood Ionized Calcium 4.5 L Urine Creatinine Urine Total Protein Vancomycin Trough Coronavirus (PCR) SARS-CoV-2 IgG Ab 07/21/20 07/21/20 07/21/20 05:26 11:50 17:16 WBC RBC Hgb Hct MCH MCHC RDW Plt Count Lymph % (Auto) Lymph # (Auto) Seg Neutrophils % Seg Neuts % (Manual) Lymphocytes % (Manual) Eosinophils % (Manual) Nucleated RBC % Seg Neutrophils # Seg Neutrophils # Man Lymphocytes # (Manual) Eosinophils # (Manual) PT INR D-Dimer Heparin Anti-Xa Level ABG pH POC ABG pCO2 POC ABG pO2 ABG pO2 ABG HCO3 ABG O2 Saturation ABG Base Excess ABG Hemoglobin ABG Oxyhemoglobin ABG Sodium ABG Potassium ABG Chloride ABG Glucose Oxyhemoglobin Carboxyhemoglobin Sodium Potassium Chloride Carbon Dioxide BUN Creatinine Glucose POC Glucose 175 H 157 H 148 H Lactic Acid Calcium Ferritin AST ALT Lactate Dehydrogenase C-Reactive Protein Total Protein Albumin Triglycerides Arterial Blood Glucose Arterial Blood Ionized Calcium Urine Creatinine Urine Total Protein Vancomycin Trough Coronavirus (PCR) SARS-CoV-2 IgG Ab 07/22/20 07/22/20 07/22/20 00:01 03:26 05:16 WBC RBC Hgb Hct MCH MCHC RDW Plt Count Lymph % (Auto) Lymph # (Auto) Seg Neutrophils % Seg Neuts % (Manual) Lymphocytes % (Manual) Eosinophils % (Manual) Nucleated RBC % Seg Neutrophils # Seg Neutrophils # Man Lymphocytes # (Manual) Eosinophils # (Manual) PT INR D-Dimer Heparin Anti-Xa Level ABG pH POC ABG pCO2 POC ABG pO2 54.2 L ABG pO2 ABG HCO3 ABG O2 Saturation ABG Base Excess ABG Hemoglobin 10.9 L ABG Oxyhemoglobin ABG Sodium 133.7 L ABG Potassium ABG Chloride ABG Glucose 217 H Oxyhemoglobin Carboxyhemoglobin Sodium Potassium Chloride Carbon Dioxide BUN Creatinine Glucose POC Glucose 172 H 182 H Lactic Acid Calcium Ferritin AST ALT Lactate Dehydrogenase C-Reactive Protein Total Protein Albumin Triglycerides Arterial Blood Glucose 217 H Arterial Blood Ionized Calcium 4.5 L Urine Creatinine Urine Total Protein Vancomycin Trough Coronavirus (PCR) SARS-CoV-2 IgG Ab 07/22/20 07/22/20 07/23/20 11:43 17:08 04:00 WBC 11.6 H RBC 3.54 L Hgb Hct MCH MCHC RDW Plt Count Lymph % (Auto) Lymph # (Auto) Seg Neutrophils % Seg Neuts % (Manual) 94.0 H Lymphocytes % (Manual) 5.0 L Eosinophils % (Manual) Nucleated RBC % Seg Neutrophils # Seg Neutrophils # Man 10.9 H Lymphocytes # (Manual) 0.6 L Eosinophils # (Manual) PT INR D-Dimer Heparin Anti-Xa Level ABG pH POC ABG pCO2 POC ABG pO2 ABG pO2 ABG HCO3 ABG O2 Saturation ABG Base Excess ABG Hemoglobin ABG Oxyhemoglobin ABG Sodium ABG Potassium ABG Chloride ABG Glucose Oxyhemoglobin Carboxyhemoglobin Sodium Potassium Chloride Carbon Dioxide BUN Creatinine Glucose POC Glucose 159 H 163 H Lactic Acid Calcium Ferritin AST ALT Lactate Dehydrogenase C-Reactive Protein Total Protein Albumin Triglycerides Arterial Blood Glucose Arterial Blood Ionized Calcium Urine Creatinine Urine Total Protein Vancomycin Trough Coronavirus (PCR) SARS-CoV-2 IgG Ab 07/23/20 07/23/20 07/23/20 04:00 04:53 04:54 WBC RBC Hgb Hct MCH MCHC RDW Plt Count Lymph % (Auto) Lymph # (Auto) Seg Neutrophils % Seg Neuts % (Manual) Lymphocytes % (Manual) Eosinophils % (Manual) Nucleated RBC % Seg Neutrophils # Seg Neutrophils # Man Lymphocytes # (Manual) Eosinophils # (Manual) PT INR D-Dimer Heparin Anti-Xa Level ABG pH 7.453 H POC ABG pCO2 POC ABG pO2 ABG pO2 ABG HCO3 32.4 H ABG O2 Saturation ABG Base Excess 7.5 H ABG Hemoglobin 10.7 L ABG Oxyhemoglobin ABG Sodium ABG Potassium ABG Chloride ABG Glucose Oxyhemoglobin Carboxyhemoglobin Sodium Potassium Chloride Carbon Dioxide 35 H BUN Creatinine 0.4 L Glucose 112 H POC Glucose 169 H Lactic Acid Calcium 8.2 L Ferritin AST ALT Lactate Dehydrogenase C-Reactive Protein Total Protein Albumin Triglycerides Arterial Blood Glucose Arterial Blood Ionized Calcium Urine Creatinine Urine Total Protein Vancomycin Trough Coronavirus (PCR) SARS-CoV-2 IgG Ab 07/23/20 07/23/20 07/23/20 11:50 23:19 Unknown WBC RBC Hgb Hct MCH MCHC RDW Plt Count Lymph % (Auto) Lymph # (Auto) Seg Neutrophils % Seg Neuts % (Manual) Lymphocytes % (Manual) Eosinophils % (Manual) Nucleated RBC % Seg Neutrophils # Seg Neutrophils # Man Lymphocytes # (Manual) Eosinophils # (Manual) PT INR D-Dimer Heparin Anti-Xa Level ABG pH POC ABG pCO2 POC ABG pO2 ABG pO2 ABG HCO3 ABG O2 Saturation ABG Base Excess ABG Hemoglobin ABG Oxyhemoglobin ABG Sodium ABG Potassium ABG Chloride ABG Glucose Oxyhemoglobin Carboxyhemoglobin Sodium Potassium Chloride Carbon Dioxide BUN Creatinine Glucose POC Glucose 118 H 168 H Lactic Acid Calcium Ferritin AST ALT Lactate Dehydrogenase C-Reactive Protein Total Protein Albumin Triglycerides Arterial Blood Glucose Arterial Blood Ionized Calcium Urine Creatinine Urine Total Protein Vancomycin Trough Coronavirus (PCR) Positive A SARS-CoV-2 IgG Ab 07/24/20 07/24/20 07/24/20 04:11 05:37 11:42 WBC RBC Hgb Hct MCH MCHC RDW Plt Count Lymph % (Auto) Lymph # (Auto) Seg Neutrophils % Seg Neuts % (Manual) Lymphocytes % (Manual) Eosinophils % (Manual) Nucleated RBC % Seg Neutrophils # Seg Neutrophils # Man Lymphocytes # (Manual) Eosinophils # (Manual) PT INR D-Dimer Heparin Anti-Xa Level ABG pH POC ABG pCO2 POC ABG pO2 ABG pO2 54.4 L ABG HCO3 34.3 H ABG O2 Saturation 89.0 L ABG Base Excess 8.5 H ABG Hemoglobin 11.0 L ABG Oxyhemoglobin ABG Sodium ABG Potassium ABG Chloride ABG Glucose Oxyhemoglobin 87.0 L Carboxyhemoglobin Sodium Potassium Chloride Carbon Dioxide BUN Creatinine Glucose POC Glucose 115 H 166 H Lactic Acid Calcium Ferritin AST ALT Lactate Dehydrogenase C-Reactive Protein Total Protein Albumin Triglycerides Arterial Blood Glucose Arterial Blood Ionized Calcium Urine Creatinine Urine Total Protein Vancomycin Trough Coronavirus (PCR) SARS-CoV-2 IgG Ab 07/24/20 07/24/20 07/25/20 17:39 23:38 03:53 WBC RBC Hgb Hct MCH MCHC RDW Plt Count Lymph % (Auto) Lymph # (Auto) Seg Neutrophils % Seg Neuts % (Manual) Lymphocytes % (Manual) Eosinophils % (Manual) Nucleated RBC % Seg Neutrophils # Seg Neutrophils # Man Lymphocytes # (Manual) Eosinophils # (Manual) PT INR D-Dimer Heparin Anti-Xa Level ABG pH POC ABG pCO2 POC ABG pO2 ABG pO2 175.9 H ABG HCO3 34.0 H ABG O2 Saturation 99.1 H ABG Base Excess 8.2 H ABG Hemoglobin 10.6 L ABG Oxyhemoglobin ABG Sodium ABG Potassium ABG Chloride ABG Glucose Oxyhemoglobin Carboxyhemoglobin Sodium Potassium Chloride Carbon Dioxide BUN Creatinine Glucose POC Glucose 150 H 139 H Lactic Acid Calcium Ferritin AST ALT Lactate Dehydrogenase C-Reactive Protein Total Protein Albumin Triglycerides Arterial Blood Glucose Arterial Blood Ionized Calcium Urine Creatinine Urine Total Protein Vancomycin Trough Coronavirus (PCR) SARS-CoV-2 IgG Ab 07/25/20 07/25/20 07/25/20 05:47 12:09 23:46 WBC RBC Hgb Hct MCH MCHC RDW Plt Count Lymph % (Auto) Lymph # (Auto) Seg Neutrophils % Seg Neuts % (Manual) Lymphocytes % (Manual) Eosinophils % (Manual) Nucleated RBC % Seg Neutrophils # Seg Neutrophils # Man Lymphocytes # (Manual) Eosinophils # (Manual) PT INR D-Dimer Heparin Anti-Xa Level ABG pH POC ABG pCO2 POC ABG pO2 ABG pO2 ABG HCO3 ABG O2 Saturation ABG Base Excess ABG Hemoglobin ABG Oxyhemoglobin ABG Sodium ABG Potassium ABG Chloride ABG Glucose Oxyhemoglobin Carboxyhemoglobin Sodium Potassium Chloride Carbon Dioxide BUN Creatinine Glucose POC Glucose 144 H 152 H 116 H Lactic Acid Calcium Ferritin AST ALT Lactate Dehydrogenase C-Reactive Protein Total Protein Albumin Triglycerides Arterial Blood Glucose Arterial Blood Ionized Calcium Urine Creatinine Urine Total Protein Vancomycin Trough Coronavirus (PCR) SARS-CoV-2 IgG Ab 07/26/20 07/26/20 07/26/20 03:48 05:36 11:28 WBC RBC Hgb Hct MCH MCHC RDW Plt Count Lymph % (Auto) Lymph # (Auto) Seg Neutrophils % Seg Neuts % (Manual) Lymphocytes % (Manual) Eosinophils % (Manual) Nucleated RBC % Seg Neutrophils # Seg Neutrophils # Man Lymphocytes # (Manual) Eosinophils # (Manual) PT INR D-Dimer Heparin Anti-Xa Level ABG pH POC ABG pCO2 POC ABG pO2 ABG pO2 73.4 L ABG HCO3 35.0 H ABG O2 Saturation ABG Base Excess 8.3 H ABG Hemoglobin 9.8 L ABG Oxyhemoglobin ABG Sodium ABG Potassium ABG Chloride ABG Glucose Oxyhemoglobin 93.7 L Carboxyhemoglobin Sodium Potassium Chloride Carbon Dioxide BUN Creatinine Glucose POC Glucose 136 H 145 H Lactic Acid Calcium Ferritin AST ALT Lactate Dehydrogenase C-Reactive Protein Total Protein Albumin Triglycerides Arterial Blood Glucose Arterial Blood Ionized Calcium Urine Creatinine Urine Total Protein Vancomycin Trough Coronavirus (PCR) SARS-CoV-2 IgG Ab 07/26/20 07/26/20 07/26/20 14:23 17:19 23:33 WBC 12.0 H RBC 3.12 L Hgb 9.5 L Hct 28.6 L MCH MCHC RDW Plt Count Lymph % (Auto) 4.2 L Lymph # (Auto) 0.5 L Seg Neutrophils % 89.8 H Seg Neuts % (Manual) Lymphocytes % (Manual) Eosinophils % (Manual) Nucleated RBC % Seg Neutrophils # 10.8 H Seg Neutrophils # Man Lymphocytes # (Manual) Eosinophils # (Manual) PT INR D-Dimer Heparin Anti-Xa Level ABG pH POC ABG pCO2 POC ABG pO2 ABG pO2 ABG HCO3 ABG O2 Saturation ABG Base Excess ABG Hemoglobin ABG Oxyhemoglobin ABG Sodium ABG Potassium ABG Chloride ABG Glucose Oxyhemoglobin Carboxyhemoglobin Sodium Potassium Chloride Carbon Dioxide BUN Creatinine Glucose POC Glucose 202 H 122 H Lactic Acid Calcium Ferritin AST ALT Lactate Dehydrogenase C-Reactive Protein Total Protein Albumin Triglycerides Arterial Blood Glucose Arterial Blood Ionized Calcium Urine Creatinine Urine Total Protein Vancomycin Trough Coronavirus (PCR) SARS-CoV-2 IgG Ab 07/27/20 07/27/20 07/27/20 04:30 05:54 12:06 WBC RBC Hgb Hct MCH MCHC RDW Plt Count Lymph % (Auto) Lymph # (Auto) Seg Neutrophils % Seg Neuts % (Manual) Lymphocytes % (Manual) Eosinophils % (Manual) Nucleated RBC % Seg Neutrophils # Seg Neutrophils # Man Lymphocytes # (Manual) Eosinophils # (Manual) PT INR D-Dimer Heparin Anti-Xa Level ABG pH POC ABG pCO2 POC ABG pO2 ABG pO2 49.0 L ABG HCO3 35.7 H ABG O2 Saturation 87.6 L ABG Base Excess 10.1 H ABG Hemoglobin 11.5 L ABG Oxyhemoglobin ABG Sodium ABG Potassium ABG Chloride ABG Glucose Oxyhemoglobin 85.4 L Carboxyhemoglobin Sodium Potassium Chloride Carbon Dioxide BUN Creatinine Glucose POC Glucose 164 H 149 H Lactic Acid Calcium Ferritin AST ALT Lactate Dehydrogenase C-Reactive Protein Total Protein Albumin Triglycerides Arterial Blood Glucose Arterial Blood Ionized Calcium Urine Creatinine Urine Total Protein Vancomycin Trough Coronavirus (PCR) SARS-CoV-2 IgG Ab 07/27/20 07/27/20 07/27/20 13:00 14:18 14:18 WBC 12.2 H RBC 3.33 L Hgb 10.0 L Hct MCH MCHC RDW Plt Count Lymph % (Auto) Lymph # (Auto) Seg Neutrophils % Seg Neuts % (Manual) 90.0 H Lymphocytes % (Manual) 7.0 L Eosinophils % (Manual) Nucleated RBC % Seg Neutrophils # Seg Neutrophils # Man 11.0 H Lymphocytes # (Manual) 0.9 L Eosinophils # (Manual) PT INR D-Dimer Heparin Anti-Xa Level ABG pH 7.313 L POC ABG pCO2 POC ABG pO2 ABG pO2 107.5 H ABG HCO3 37.6 H ABG O2 Saturation ABG Base Excess 8.1 H ABG Hemoglobin 10.1 L ABG Oxyhemoglobin ABG Sodium ABG Potassium ABG Chloride ABG Glucose Oxyhemoglobin Carboxyhemoglobin Sodium Potassium Chloride 97.6 L Carbon Dioxide 35 H BUN 18 H Creatinine Glucose 135 H POC Glucose Lactic Acid Calcium 8.3 L Ferritin AST ALT Lactate Dehydrogenase C-Reactive Protein Total Protein Albumin Triglycerides Arterial Blood Glucose Arterial Blood Ionized Calcium Urine Creatinine Urine Total Protein Vancomycin Trough Coronavirus (PCR) SARS-CoV-2 IgG Ab 07/27/20 07/27/20 07/28/20 17:09 23:14 04:15 WBC RBC Hgb Hct MCH MCHC RDW Plt Count Lymph % (Auto) Lymph # (Auto) Seg Neutrophils % Seg Neuts % (Manual) Lymphocytes % (Manual) Eosinophils % (Manual) Nucleated RBC % Seg Neutrophils # Seg Neutrophils # Man Lymphocytes # (Manual) Eosinophils # (Manual) PT INR D-Dimer Heparin Anti-Xa Level ABG pH 7.317 L POC ABG pCO2 POC ABG pO2 ABG pO2 130.3 H ABG HCO3 40.9 H ABG O2 Saturation ABG Base Excess 13.5 H ABG Hemoglobin 5.8 L ABG Oxyhemoglobin ABG Sodium ABG Potassium ABG Chloride ABG Glucose Oxyhemoglobin Carboxyhemoglobin Sodium Potassium Chloride Carbon Dioxide BUN Creatinine Glucose POC Glucose 115 H 139 H Lactic Acid Calcium Ferritin AST ALT Lactate Dehydrogenase C-Reactive Protein Total Protein Albumin Triglycerides Arterial Blood Glucose Arterial Blood Ionized Calcium Urine Creatinine Urine Total Protein Vancomycin Trough Coronavirus (PCR) SARS-CoV-2 IgG Ab 07/28/20 07/28/20 07/28/20 05:34 09:20 09:20 WBC RBC 2.89 L Hgb 9.5 L Hct 26.6 L MCH 33 H MCHC 36 H RDW Plt Count 123 L Lymph % (Auto) Lymph # (Auto) Seg Neutrophils % Seg Neuts % (Manual) 89.0 H Lymphocytes % (Manual) 5.0 L Eosinophils % (Manual) Nucleated RBC % Seg Neutrophils # Seg Neutrophils # Man 8.6 H Lymphocytes # (Manual) 0.5 L Eosinophils # (Manual) PT INR D-Dimer Heparin Anti-Xa Level ABG pH POC ABG pCO2 POC ABG pO2 ABG pO2 ABG HCO3 ABG O2 Saturation ABG Base Excess ABG Hemoglobin ABG Oxyhemoglobin ABG Sodium ABG Potassium ABG Chloride ABG Glucose Oxyhemoglobin Carboxyhemoglobin Sodium 134 L Potassium Chloride 95.6 L Carbon Dioxide 39 H BUN Creatinine 0.3 L Glucose 131 H POC Glucose 130 H Lactic Acid Calcium 7.9 L Ferritin AST ALT Lactate Dehydrogenase C-Reactive Protein Total Protein Albumin Triglycerides Arterial Blood Glucose Arterial Blood Ionized Calcium Urine Creatinine Urine Total Protein Vancomycin Trough Coronavirus (PCR) SARS-CoV-2 IgG Ab 07/28/20 07/28/20 07/28/20 11:50 18:36 23:22 WBC RBC Hgb Hct MCH MCHC RDW Plt Count Lymph % (Auto) Lymph # (Auto) Seg Neutrophils % Seg Neuts % (Manual) Lymphocytes % (Manual) Eosinophils % (Manual) Nucleated RBC % Seg Neutrophils # Seg Neutrophils # Man Lymphocytes # (Manual) Eosinophils # (Manual) PT INR D-Dimer Heparin Anti-Xa Level ABG pH POC ABG pCO2 POC ABG pO2 ABG pO2 ABG HCO3 ABG O2 Saturation ABG Base Excess ABG Hemoglobin ABG Oxyhemoglobin ABG Sodium ABG Potassium ABG Chloride ABG Glucose Oxyhemoglobin Carboxyhemoglobin Sodium Potassium Chloride Carbon Dioxide BUN Creatinine Glucose POC Glucose 128 H 119 H 122 H Lactic Acid Calcium Ferritin AST ALT Lactate Dehydrogenase C-Reactive Protein Total Protein Albumin Triglycerides Arterial Blood Glucose Arterial Blood Ionized Calcium Urine Creatinine Urine Total Protein Vancomycin Trough Coronavirus (PCR) SARS-CoV-2 IgG Ab 07/29/20 07/29/20 07/29/20 03:18 07:54 07:54 WBC 11.1 H RBC 3.49 L Hgb Hct MCH MCHC RDW Plt Count 139 L Lymph % (Auto) Lymph # (Auto) Seg Neutrophils % Seg Neuts % (Manual) 90.0 H Lymphocytes % (Manual) 1.0 L Eosinophils % (Manual) 5.0 H Nucleated RBC % Seg Neutrophils # Seg Neutrophils # Man 10.0 H Lymphocytes # (Manual) 0.1 L Eosinophils # (Manual) 0.6 H PT INR D-Dimer Heparin Anti-Xa Level ABG pH POC ABG pCO2 69.5 H POC ABG pO2 109.3 H ABG pO2 ABG HCO3 ABG O2 Saturation ABG Base Excess ABG Hemoglobin 10.8 L ABG Oxyhemoglobin ABG Sodium ABG Potassium ABG Chloride 95.0 L ABG Glucose 138 H Oxyhemoglobin Carboxyhemoglobin Sodium Potassium Chloride 94.5 L Carbon Dioxide 40 H BUN Creatinine 0.5 L D Glucose 104 H POC Glucose Lactic Acid Calcium Ferritin AST ALT Lactate Dehydrogenase C-Reactive Protein Total Protein Albumin Triglycerides Arterial Blood Glucose 138 H Arterial Blood Ionized Calcium Urine Creatinine Urine Total Protein Vancomycin Trough Coronavirus (PCR) SARS-CoV-2 IgG Ab 07/29/20 07/29/20 07/29/20 11:05 18:17 19:41 WBC RBC Hgb Hct MCH MCHC RDW Plt Count Lymph % (Auto) Lymph # (Auto) Seg Neutrophils % Seg Neuts % (Manual) Lymphocytes % (Manual) Eosinophils % (Manual) Nucleated RBC % Seg Neutrophils # Seg Neutrophils # Man Lymphocytes # (Manual) Eosinophils # (Manual) PT INR D-Dimer Heparin Anti-Xa Level ABG pH 7.305 L POC ABG pCO2 73.3 H 66.7 H POC ABG pO2 28.2 L 32.7 L ABG pO2 ABG HCO3 ABG O2 Saturation ABG Base Excess ABG Hemoglobin 11.8 L 11.5 L ABG Oxyhemoglobin ABG Sodium ABG Potassium ABG Chloride 94.0 L 95.0 L ABG Glucose 207 H 141 H Oxyhemoglobin Carboxyhemoglobin Sodium Potassium Chloride Carbon Dioxide BUN Creatinine Glucose POC Glucose 113 H Lactic Acid Calcium Ferritin AST ALT Lactate Dehydrogenase C-Reactive Protein Total Protein Albumin Triglycerides Arterial Blood Glucose 207 H 141 H Arterial Blood Ionized Calcium 4.5 L Urine Creatinine Urine Total Protein Vancomycin Trough Coronavirus (PCR) SARS-CoV-2 IgG Ab 07/29/20 07/30/20 07/30/20 23:28 04:47 05:28 WBC RBC Hgb Hct MCH MCHC RDW Plt Count Lymph % (Auto) Lymph # (Auto) Seg Neutrophils % Seg Neuts % (Manual) Lymphocytes % (Manual) Eosinophils % (Manual) Nucleated RBC % Seg Neutrophils # Seg Neutrophils # Man Lymphocytes # (Manual) Eosinophils # (Manual) PT INR D-Dimer Heparin Anti-Xa Level ABG pH POC ABG pCO2 55.1 H POC ABG pO2 43.6 L ABG pO2 ABG HCO3 ABG O2 Saturation ABG Base Excess ABG Hemoglobin 11.9 L ABG Oxyhemoglobin ABG Sodium ABG Potassium ABG Chloride 96.0 L ABG Glucose 150 H Oxyhemoglobin Carboxyhemoglobin Sodium Potassium Chloride Carbon Dioxide BUN Creatinine Glucose POC Glucose 121 H 143 H Lactic Acid Calcium Ferritin AST ALT Lactate Dehydrogenase C-Reactive Protein Total Protein Albumin Triglycerides Arterial Blood Glucose 150 H Arterial Blood Ionized Calcium Urine Creatinine Urine Total Protein Vancomycin Trough Coronavirus (PCR) SARS-CoV-2 IgG Ab 07/30/20 07/30/20 07/30/20 08:18 12:00 14:17 WBC RBC Hgb Hct MCH MCHC RDW Plt Count Lymph % (Auto) Lymph # (Auto) Seg Neutrophils % Seg Neuts % (Manual) Lymphocytes % (Manual) Eosinophils % (Manual) Nucleated RBC % Seg Neutrophils # Seg Neutrophils # Man Lymphocytes # (Manual) Eosinophils # (Manual) PT INR D-Dimer Heparin Anti-Xa Level ABG pH POC ABG pCO2 63.3 H 64.6 H POC ABG pO2 47.9 L 41.0 L ABG pO2 ABG HCO3 ABG O2 Saturation ABG Base Excess ABG Hemoglobin 10.5 L 10.2 L ABG Oxyhemoglobin 84.9 L ABG Sodium ABG Potassium ABG Chloride 97.0 L ABG Glucose 170 H 175 H Oxyhemoglobin Carboxyhemoglobin Sodium Potassium Chloride Carbon Dioxide BUN Creatinine Glucose POC Glucose 161 H Lactic Acid Calcium Ferritin AST ALT Lactate Dehydrogenase C-Reactive Protein Total Protein Albumin Triglycerides Arterial Blood Glucose 170 H 175 H Arterial Blood Ionized Calcium 4.4 L 4.4 L Urine Creatinine Urine Total Protein Vancomycin Trough Coronavirus (PCR) SARS-CoV-2 IgG Ab 07/30/20 07/30/20 07/30/20 15:15 15:15 15:15 WBC RBC 2.80 L Hgb 9.1 L Hct 26.0 L D MCH MCHC 35 H RDW Plt Count 101 L Lymph % (Auto) Lymph # (Auto) Seg Neutrophils % Seg Neuts % (Manual) 90.0 H Lymphocytes % (Manual) 7.0 L Eosinophils % (Manual) Nucleated RBC % Seg Neutrophils # Seg Neutrophils # Man Lymphocytes # (Manual) 0.4 L Eosinophils # (Manual) PT INR D-Dimer Heparin Anti-Xa Level ABG pH POC ABG pCO2 POC ABG pO2 ABG pO2 ABG HCO3 ABG O2 Saturation ABG Base Excess ABG Hemoglobin ABG Oxyhemoglobin ABG Sodium ABG Potassium ABG Chloride ABG Glucose Oxyhemoglobin Carboxyhemoglobin Sodium Potassium Chloride 97.1 L Carbon Dioxide 32 H D BUN 39 H Creatinine 1.3 H D Glucose 167 H POC Glucose Lactic Acid Calcium 8.0 L Ferritin AST ALT Lactate Dehydrogenase C-Reactive Protein Total Protein Albumin Triglycerides 837 H Arterial Blood Glucose Arterial Blood Ionized Calcium Urine Creatinine Urine Total Protein Vancomycin Trough Coronavirus (PCR) SARS-CoV-2 IgG Ab 07/30/20 07/30/20 07/30/20 15:15 17:03 17:43 WBC RBC Hgb Hct MCH MCHC RDW Plt Count Lymph % (Auto) Lymph # (Auto) Seg Neutrophils % Seg Neuts % (Manual) Lymphocytes % (Manual) Eosinophils % (Manual) Nucleated RBC % Seg Neutrophils # Seg Neutrophils # Man Lymphocytes # (Manual) Eosinophils # (Manual) PT INR D-Dimer Heparin Anti-Xa Level ABG pH POC ABG pCO2 POC ABG pO2 ABG pO2 ABG HCO3 ABG O2 Saturation ABG Base Excess ABG Hemoglobin ABG Oxyhemoglobin ABG Sodium ABG Potassium ABG Chloride ABG Glucose Oxyhemoglobin Carboxyhemoglobin Sodium Potassium Chloride Carbon Dioxide BUN Creatinine Glucose POC Glucose 171 H Lactic Acid 2.20 H* 3.60 H* Calcium Ferritin AST ALT Lactate Dehydrogenase C-Reactive Protein Total Protein Albumin Triglycerides Arterial Blood Glucose Arterial Blood Ionized Calcium Urine Creatinine Urine Total Protein Vancomycin Trough Coronavirus (PCR) SARS-CoV-2 IgG Ab 07/30/20 07/30/20 07/31/20 20:13 23:37 04:15 WBC RBC Hgb Hct MCH MCHC RDW Plt Count Lymph % (Auto) Lymph # (Auto) Seg Neutrophils % Seg Neuts % (Manual) Lymphocytes % (Manual) Eosinophils % (Manual) Nucleated RBC % Seg Neutrophils # Seg Neutrophils # Man Lymphocytes # (Manual) Eosinophils # (Manual) PT INR D-Dimer Heparin Anti-Xa Level ABG pH 7.544 H 7.489 H POC ABG pCO2 POC ABG pO2 44.4 L 50.0 L ABG pO2 ABG HCO3 ABG O2 Saturation ABG Base Excess ABG Hemoglobin 10.4 L ABG Oxyhemoglobin ABG Sodium 135.3 L ABG Potassium ABG Chloride ABG Glucose 201 H 199 H Oxyhemoglobin Carboxyhemoglobin Sodium Potassium Chloride Carbon Dioxide BUN Creatinine Glucose POC Glucose 160 H Lactic Acid Calcium Ferritin AST ALT Lactate Dehydrogenase C-Reactive Protein Total Protein Albumin Triglycerides Arterial Blood Glucose 201 H 199 H Arterial Blood Ionized Calcium 4.2 L 4.4 L Urine Creatinine Urine Total Protein Vancomycin Trough Coronavirus (PCR) SARS-CoV-2 IgG Ab 07/31/20 07/31/20 07/31/20 05:16 05:16 05:28 WBC RBC 3.03 L Hgb 9.2 L Hct 27.6 L MCH MCHC RDW Plt Count 118 L Lymph % (Auto) 6.3 L Lymph # (Auto) 0.5 L Seg Neutrophils % Seg Neuts % (Manual) Lymphocytes % (Manual) Eosinophils % (Manual) Nucleated RBC % Seg Neutrophils # Seg Neutrophils # Man Lymphocytes # (Manual) Eosinophils # (Manual) PT INR D-Dimer Heparin Anti-Xa Level ABG pH POC ABG pCO2 POC ABG pO2 ABG pO2 ABG HCO3 ABG O2 Saturation ABG Base Excess ABG Hemoglobin ABG Oxyhemoglobin ABG Sodium ABG Potassium ABG Chloride ABG Glucose Oxyhemoglobin Carboxyhemoglobin Sodium Potassium Chloride Carbon Dioxide BUN 57 H Creatinine 1.7 H Glucose 208 H POC Glucose 182 H Lactic Acid Calcium 8.3 L Ferritin AST 613 H ALT 760 H Lactate Dehydrogenase C-Reactive Protein Total Protein 5.6 L Albumin 2.2 L Triglycerides Arterial Blood Glucose Arterial Blood Ionized Calcium Urine Creatinine Urine Total Protein Vancomycin Trough Coronavirus (PCR) SARS-CoV-2 IgG Ab 07/31/20 07/31/20 07/31/20 11:02 14:14 14:14 WBC RBC Hgb Hct MCH MCHC RDW Plt Count Lymph % (Auto) Lymph # (Auto) Seg Neutrophils % Seg Neuts % (Manual) Lymphocytes % (Manual) Eosinophils % (Manual) Nucleated RBC % Seg Neutrophils # Seg Neutrophils # Man Lymphocytes # (Manual) Eosinophils # (Manual) PT INR D-Dimer 2522.40 H Heparin Anti-Xa Level ABG pH POC ABG pCO2 POC ABG pO2 ABG pO2 ABG HCO3 ABG O2 Saturation ABG Base Excess ABG Hemoglobin ABG Oxyhemoglobin ABG Sodium ABG Potassium ABG Chloride ABG Glucose Oxyhemoglobin Carboxyhemoglobin Sodium Potassium Chloride Carbon Dioxide BUN Creatinine Glucose POC Glucose 200 H Lactic Acid Calcium Ferritin 964.8 H AST ALT Lactate Dehydrogenase C-Reactive Protein Total Protein Albumin Triglycerides Arterial Blood Glucose Arterial Blood Ionized Calcium Urine Creatinine Urine Total Protein Vancomycin Trough Coronavirus (PCR) SARS-CoV-2 IgG Ab 07/31/20 07/31/20 07/31/20 14:14 14:14 16:00 WBC RBC Hgb Hct MCH MCHC RDW Plt Count Lymph % (Auto) Lymph # (Auto) Seg Neutrophils % Seg Neuts % (Manual) Lymphocytes % (Manual) Eosinophils % (Manual) Nucleated RBC % Seg Neutrophils # Seg Neutrophils # Man Lymphocytes # (Manual) Eosinophils # (Manual) PT INR D-Dimer Heparin Anti-Xa Level ABG pH POC ABG pCO2 POC ABG pO2 ABG pO2 ABG HCO3 ABG O2 Saturation ABG Base Excess ABG Hemoglobin ABG Oxyhemoglobin ABG Sodium ABG Potassium ABG Chloride ABG Glucose Oxyhemoglobin Carboxyhemoglobin Sodium Potassium Chloride Carbon Dioxide BUN Creatinine Glucose POC Glucose Lactic Acid Calcium Ferritin AST ALT Lactate Dehydrogenase 585 H C-Reactive Protein 49.00 H Total Protein Albumin Triglycerides Arterial Blood Glucose Arterial Blood Ionized Calcium Urine Creatinine 89.2 H Urine Total Protein 108 H Vancomycin Trough 28.2 H Coronavirus (PCR) SARS-CoV-2 IgG Ab 07/31/20 07/31/20 08/01/20 17:22 21:26 00:07 WBC RBC Hgb Hct MCH MCHC RDW Plt Count Lymph % (Auto) Lymph # (Auto) Seg Neutrophils % Seg Neuts % (Manual) Lymphocytes % (Manual) Eosinophils % (Manual) Nucleated RBC % Seg Neutrophils # Seg Neutrophils # Man Lymphocytes # (Manual) Eosinophils # (Manual) PT INR D-Dimer Heparin Anti-Xa Level ABG pH POC ABG pCO2 POC ABG pO2 156.0 H ABG pO2 ABG HCO3 ABG O2 Saturation ABG Base Excess ABG Hemoglobin 9.6 L ABG Oxyhemoglobin 98.4 H ABG Sodium 135.9 L ABG Potassium ABG Chloride ABG Glucose 290 H Oxyhemoglobin Carboxyhemoglobin 0.4 L Sodium Potassium Chloride Carbon Dioxide BUN Creatinine Glucose POC Glucose 229 H 255 H Lactic Acid Calcium Ferritin AST ALT Lactate Dehydrogenase C-Reactive Protein Total Protein Albumin Triglycerides Arterial Blood Glucose 290 H Arterial Blood Ionized Calcium 4.5 L Urine Creatinine Urine Total Protein Vancomycin Trough Coronavirus (PCR) SARS-CoV-2 IgG Ab 08/01/20 08/01/20 08/01/20 04:46 05:30 05:30 WBC RBC 2.27 L Hgb 7.6 L Hct 20.9 L D MCH 34 H MCHC 37 H RDW Plt Count 85 L Lymph % (Auto) Lymph # (Auto) Seg Neutrophils % Seg Neuts % (Manual) 87.0 H Lymphocytes % (Manual) 2.0 L Eosinophils % (Manual) Nucleated RBC % 1.0 H Seg Neutrophils # Seg Neutrophils # Man Lymphocytes # (Manual) 0.1 L Eosinophils # (Manual) PT INR D-Dimer Heparin Anti-Xa Level ABG pH 7.462 H POC ABG pCO2 POC ABG pO2 70.2 L ABG pO2 ABG HCO3 ABG O2 Saturation ABG Base Excess ABG Hemoglobin 8.7 L ABG Oxyhemoglobin ABG Sodium 135.7 L ABG Potassium 3.3 L ABG Chloride ABG Glucose 275 H Oxyhemoglobin Carboxyhemoglobin Sodium 132 L D Potassium 2.8 L* D Chloride Carbon Dioxide BUN 47 H Creatinine Glucose 217 H POC Glucose Lactic Acid Calcium 6.6 L D Ferritin AST 117 H ALT 408 H Lactate Dehydrogenase C-Reactive Protein Total Protein 4.3 L D Albumin 0.6 L Triglycerides 2335 H Arterial Blood Glucose 275 H Arterial Blood Ionized Calcium 4.5 L Urine Creatinine Urine Total Protein Vancomycin Trough Coronavirus (PCR) SARS-CoV-2 IgG Ab 08/01/20 08/01/20 08/01/20 05:34 09:33 11:50 WBC RBC Hgb Hct MCH MCHC RDW Plt Count Lymph % (Auto) Lymph # (Auto) Seg Neutrophils % Seg Neuts % (Manual) Lymphocytes % (Manual) Eosinophils % (Manual) Nucleated RBC % Seg Neutrophils # Seg Neutrophils # Man Lymphocytes # (Manual) Eosinophils # (Manual) PT INR D-Dimer Heparin Anti-Xa Level ABG pH POC ABG pCO2 POC ABG pO2 ABG pO2 ABG HCO3 ABG O2 Saturation ABG Base Excess ABG Hemoglobin ABG Oxyhemoglobin ABG Sodium ABG Potassium ABG Chloride ABG Glucose Oxyhemoglobin Carboxyhemoglobin Sodium Potassium Chloride Carbon Dioxide BUN 57 H Creatinine Glucose 250 H POC Glucose 246 H 239 H Lactic Acid Calcium 8.2 L D Ferritin AST ALT Lactate Dehydrogenase C-Reactive Protein Total Protein Albumin Triglycerides 759 H Arterial Blood Glucose Arterial Blood Ionized Calcium Urine Creatinine Urine Total Protein Vancomycin Trough Coronavirus (PCR) SARS-CoV-2 IgG Ab 08/01/20 08/01/20 08/02/20 17:14 23:21 04:22 WBC RBC Hgb Hct MCH MCHC RDW Plt Count Lymph % (Auto) Lymph # (Auto) Seg Neutrophils % Seg Neuts % (Manual) Lymphocytes % (Manual) Eosinophils % (Manual) Nucleated RBC % Seg Neutrophils # Seg Neutrophils # Man Lymphocytes # (Manual) Eosinophils # (Manual) PT INR D-Dimer Heparin Anti-Xa Level ABG pH 7.268 L POC ABG pCO2 56.6 H POC ABG pO2 ABG pO2 ABG HCO3 ABG O2 Saturation ABG Base Excess ABG Hemoglobin 8.4 L ABG Oxyhemoglobin ABG Sodium ABG Potassium 4.9 H ABG Chloride ABG Glucose 261 H Oxyhemoglobin Carboxyhemoglobin Sodium Potassium Chloride Carbon Dioxide BUN Creatinine Glucose POC Glucose 219 H 242 H Lactic Acid Calcium Ferritin AST ALT Lactate Dehydrogenase C-Reactive Protein Total Protein Albumin Triglycerides Arterial Blood Glucose 261 H Arterial Blood Ionized Calcium Urine Creatinine Urine Total Protein Vancomycin Trough Coronavirus (PCR) SARS-CoV-2 IgG Ab 08/02/20 08/02/20 08/02/20 05:05 06:37 06:37 WBC RBC 3.40 L Hgb 10.0 L Hct MCH MCHC RDW 16.2 H Plt Count 87 L Lymph % (Auto) Lymph # (Auto) Seg Neutrophils % Seg Neuts % (Manual) 82.0 H Lymphocytes % (Manual) 3.0 L Eosinophils % (Manual) Nucleated RBC % 2.0 H Seg Neutrophils # Seg Neutrophils # Man 9.0 H Lymphocytes # (Manual) 0.3 L Eosinophils # (Manual) PT INR D-Dimer Heparin Anti-Xa Level ABG pH POC ABG pCO2 POC ABG pO2 ABG pO2 ABG HCO3 ABG O2 Saturation ABG Base Excess ABG Hemoglobin ABG Oxyhemoglobin ABG Sodium ABG Potassium ABG Chloride ABG Glucose Oxyhemoglobin Carboxyhemoglobin Sodium Potassium 5.3 H D Chloride Carbon Dioxide BUN 53 H Creatinine Glucose 267 H POC Glucose 254 H Lactic Acid Calcium 8.1 L Ferritin AST 43 H ALT 334 H Lactate Dehydrogenase C-Reactive Protein Total Protein 5.4 L D Albumin 1.9 L Triglycerides Arterial Blood Glucose Arterial Blood Ionized Calcium Urine Creatinine Urine Total Protein Vancomycin Trough Coronavirus (PCR) SARS-CoV-2 IgG Ab 08/02/20 08/02/20 08/02/20 06:37 11:34 17:04 WBC RBC Hgb Hct MCH MCHC RDW Plt Count Lymph % (Auto) Lymph # (Auto) Seg Neutrophils % Seg Neuts % (Manual) Lymphocytes % (Manual) Eosinophils % (Manual) Nucleated RBC % Seg Neutrophils # Seg Neutrophils # Man Lymphocytes # (Manual) Eosinophils # (Manual) PT INR D-Dimer Heparin Anti-Xa Level ABG pH POC ABG pCO2 POC ABG pO2 ABG pO2 ABG HCO3 ABG O2 Saturation ABG Base Excess ABG Hemoglobin ABG Oxyhemoglobin ABG Sodium ABG Potassium ABG Chloride ABG Glucose Oxyhemoglobin Carboxyhemoglobin Sodium Potassium Chloride Carbon Dioxide BUN Creatinine Glucose POC Glucose 279 H 256 H Lactic Acid Calcium Ferritin AST ALT Lactate Dehydrogenase C-Reactive Protein Total Protein Albumin Triglycerides 717 H Arterial Blood Glucose Arterial Blood Ionized Calcium Urine Creatinine Urine Total Protein Vancomycin Trough Coronavirus (PCR) SARS-CoV-2 IgG Ab 08/02/20 08/03/20 08/03/20 23:23 01:25 04:49 WBC 13.2 H RBC 2.83 L Hgb 8.4 L Hct 26.3 L MCH MCHC RDW 16.4 H Plt Count Lymph % (Auto) Lymph # (Auto) Seg Neutrophils % Seg Neuts % (Manual) Lymphocytes % (Manual) 2.0 L Eosinophils % (Manual) Nucleated RBC % 1.0 H Seg Neutrophils # Seg Neutrophils # Man 7.8 H Lymphocytes # (Manual) 0.3 L Eosinophils # (Manual) PT INR D-Dimer Heparin Anti-Xa Level ABG pH 7.302 L POC ABG pCO2 56.0 H POC ABG pO2 39.6 L ABG pO2 ABG HCO3 ABG O2 Saturation ABG Base Excess ABG Hemoglobin 9.1 L ABG Oxyhemoglobin ABG Sodium ABG Potassium 4.8 H ABG Chloride 108.0 H ABG Glucose 275 H Oxyhemoglobin Carboxyhemoglobin Sodium Potassium Chloride Carbon Dioxide BUN Creatinine Glucose POC Glucose 214 H Lactic Acid Calcium Ferritin AST ALT Lactate Dehydrogenase C-Reactive Protein Total Protein Albumin Triglycerides Arterial Blood Glucose 275 H Arterial Blood Ionized Calcium Urine Creatinine Urine Total Protein Vancomycin Trough Coronavirus (PCR) SARS-CoV-2 IgG Ab 08/03/20 08/03/20 08/03/20 04:49 04:49 05:11 WBC RBC Hgb Hct MCH MCHC RDW Plt Count Lymph % (Auto) Lymph # (Auto) Seg Neutrophils % Seg Neuts % (Manual) Lymphocytes % (Manual) Eosinophils % (Manual) Nucleated RBC % Seg Neutrophils # Seg Neutrophils # Man Lymphocytes # (Manual) Eosinophils # (Manual) PT INR D-Dimer Heparin Anti-Xa Level ABG pH POC ABG pCO2 POC ABG pO2 ABG pO2 ABG HCO3 ABG O2 Saturation ABG Base Excess ABG Hemoglobin ABG Oxyhemoglobin ABG Sodium ABG Potassium ABG Chloride ABG Glucose Oxyhemoglobin Carboxyhemoglobin Sodium Potassium Chloride Carbon Dioxide BUN 39 H Creatinine Glucose 263 H POC Glucose 230 H Lactic Acid Calcium 8.1 L Ferritin AST ALT 242 H Lactate Dehydrogenase C-Reactive Protein Total Protein 5.4 L Albumin 2.2 L Triglycerides 500 H Arterial Blood Glucose Arterial Blood Ionized Calcium Urine Creatinine Urine Total Protein Vancomycin Trough Coronavirus (PCR) SARS-CoV-2 IgG Ab 08/03/20 08/03/20 08/03/20 11:55 17:07 23:25 WBC RBC Hgb Hct MCH MCHC RDW Plt Count Lymph % (Auto) Lymph # (Auto) Seg Neutrophils % Seg Neuts % (Manual) Lymphocytes % (Manual) Eosinophils % (Manual) Nucleated RBC % Seg Neutrophils # Seg Neutrophils # Man Lymphocytes # (Manual) Eosinophils # (Manual) PT INR D-Dimer Heparin Anti-Xa Level ABG pH POC ABG pCO2 POC ABG pO2 ABG pO2 ABG HCO3 ABG O2 Saturation ABG Base Excess ABG Hemoglobin ABG Oxyhemoglobin ABG Sodium ABG Potassium ABG Chloride ABG Glucose Oxyhemoglobin Carboxyhemoglobin Sodium Potassium Chloride Carbon Dioxide BUN Creatinine Glucose POC Glucose 238 H 205 H 211 H Lactic Acid Calcium Ferritin AST ALT Lactate Dehydrogenase C-Reactive Protein Total Protein Albumin Triglycerides Arterial Blood Glucose Arterial Blood Ionized Calcium Urine Creatinine Urine Total Protein Vancomycin Trough Coronavirus (PCR) SARS-CoV-2 IgG Ab 08/04/20 08/04/20 08/04/20 03:16 05:31 12:07 WBC RBC Hgb Hct MCH MCHC RDW Plt Count Lymph % (Auto) Lymph # (Auto) Seg Neutrophils % Seg Neuts % (Manual) Lymphocytes % (Manual) Eosinophils % (Manual) Nucleated RBC % Seg Neutrophils # Seg Neutrophils # Man Lymphocytes # (Manual) Eosinophils # (Manual) PT INR D-Dimer Heparin Anti-Xa Level ABG pH 7.154 L POC ABG pCO2 80.7 H POC ABG pO2 ABG pO2 ABG HCO3 ABG O2 Saturation ABG Base Excess ABG Hemoglobin 8.5 L ABG Oxyhemoglobin ABG Sodium ABG Potassium 5.1 H ABG Chloride 109.0 H ABG Glucose 226 H Oxyhemoglobin Carboxyhemoglobin Sodium Potassium Chloride Carbon Dioxide BUN Creatinine Glucose POC Glucose 201 H 213 H Lactic Acid Calcium Ferritin AST ALT Lactate Dehydrogenase C-Reactive Protein Total Protein Albumin Triglycerides Arterial Blood Glucose 226 H Arterial Blood Ionized Calcium Urine Creatinine Urine Total Protein Vancomycin Trough Coronavirus (PCR) SARS-CoV-2 IgG Ab 08/04/20 08/04/20 08/04/20 17:39 23:17 Unknown WBC RBC 2.38 L Hgb 7.1 L Hct 22.4 L MCH MCHC RDW 16.5 H Plt Count Lymph % (Auto) Lymph # (Auto) Seg Neutrophils % Seg Neuts % (Manual) Lymphocytes % (Manual) 1.0 L Eosinophils % (Manual) Nucleated RBC % Seg Neutrophils # Seg Neutrophils # Man Lymphocytes # (Manual) 0.1 L Eosinophils # (Manual) PT INR D-Dimer Heparin Anti-Xa Level ABG pH POC ABG pCO2 POC ABG pO2 ABG pO2 ABG HCO3 ABG O2 Saturation ABG Base Excess ABG Hemoglobin ABG Oxyhemoglobin ABG Sodium ABG Potassium ABG Chloride ABG Glucose Oxyhemoglobin Carboxyhemoglobin Sodium Potassium Chloride Carbon Dioxide BUN Creatinine Glucose POC Glucose 155 H 107 H Lactic Acid Calcium Ferritin AST ALT Lactate Dehydrogenase C-Reactive Protein Total Protein Albumin Triglycerides Arterial Blood Glucose Arterial Blood Ionized Calcium Urine Creatinine Urine Total Protein Vancomycin Trough Coronavirus (PCR) SARS-CoV-2 IgG Ab 08/04/20 08/05/20 08/05/20 Unknown 05:14 05:50 WBC RBC Hgb Hct MCH MCHC RDW Plt Count Lymph % (Auto) Lymph # (Auto) Seg Neutrophils % Seg Neuts % (Manual) Lymphocytes % (Manual) Eosinophils % (Manual) Nucleated RBC % Seg Neutrophils # Seg Neutrophils # Man Lymphocytes # (Manual) Eosinophils # (Manual) PT INR D-Dimer Heparin Anti-Xa Level ABG pH POC ABG pCO2 51.7 H POC ABG pO2 63.3 L ABG pO2 ABG HCO3 ABG O2 Saturation ABG Base Excess ABG Hemoglobin 9.9 L ABG Oxyhemoglobin ABG Sodium 146.9 H ABG Potassium ABG Chloride 113.0 H ABG Glucose 112 H Oxyhemoglobin Carboxyhemoglobin Sodium Potassium Chloride 113.1 H Carbon Dioxide BUN 27 H Creatinine 0.5 L Glucose 190 H POC Glucose 126 H Lactic Acid Calcium 7.5 L Ferritin AST ALT 134 H Lactate Dehydrogenase C-Reactive Protein Total Protein 4.7 L Albumin 2.2 L Triglycerides Arterial Blood Glucose 112 H Arterial Blood Ionized Calcium Urine Creatinine Urine Total Protein Vancomycin Trough Coronavirus (PCR) SARS-CoV-2 IgG Ab 08/05/20 08/05/20 08/05/20 08:30 08:30 11:19 WBC 16.5 H RBC 2.79 L Hgb 8.3 L Hct 26.1 L MCH MCHC RDW 16.7 H Plt Count Lymph % (Auto) Lymph # (Auto) Seg Neutrophils % Seg Neuts % (Manual) Lymphocytes % (Manual) 6.0 L Eosinophils % (Manual) Nucleated RBC % Seg Neutrophils # Seg Neutrophils # Man 10.1 H Lymphocytes # (Manual) 1.0 L Eosinophils # (Manual) PT INR D-Dimer Heparin Anti-Xa Level ABG pH POC ABG pCO2 POC ABG pO2 ABG pO2 ABG HCO3 ABG O2 Saturation ABG Base Excess ABG Hemoglobin ABG Oxyhemoglobin ABG Sodium ABG Potassium ABG Chloride ABG Glucose Oxyhemoglobin Carboxyhemoglobin Sodium 149 H Potassium Chloride 112.9 H Carbon Dioxide 32 H D BUN 25 H Creatinine Glucose 184 H POC Glucose 185 H Lactic Acid Calcium Ferritin AST ALT 115 H Lactate Dehydrogenase C-Reactive Protein Total Protein 5.5 L Albumin 2.3 L Triglycerides Arterial Blood Glucose Arterial Blood Ionized Calcium Urine Creatinine Urine Total Protein Vancomycin Trough Coronavirus (PCR) SARS-CoV-2 IgG Ab 08/05/20 08/05/20 08/05/20 13:35 13:35 13:35 WBC RBC Hgb 7.7 L Hct 24.6 L MCH MCHC RDW Plt Count Lymph % (Auto) Lymph # (Auto) Seg Neutrophils % Seg Neuts % (Manual) Lymphocytes % (Manual) Eosinophils % (Manual) Nucleated RBC % Seg Neutrophils # Seg Neutrophils # Man Lymphocytes # (Manual) Eosinophils # (Manual) PT 15.4 H INR 1.22 H D-Dimer 4748.32 H Heparin Anti-Xa Level ABG pH POC ABG pCO2 POC ABG pO2 ABG pO2 ABG HCO3 ABG O2 Saturation ABG Base Excess ABG Hemoglobin ABG Oxyhemoglobin ABG Sodium ABG Potassium ABG Chloride ABG Glucose Oxyhemoglobin Carboxyhemoglobin Sodium Potassium Chloride Carbon Dioxide BUN Creatinine Glucose POC Glucose Lactic Acid Calcium Ferritin AST ALT Lactate Dehydrogenase C-Reactive Protein 26.40 H Total Protein Albumin Triglycerides 337 H Arterial Blood Glucose Arterial Blood Ionized Calcium Urine Creatinine Urine Total Protein Vancomycin Trough Coronavirus (PCR) SARS-CoV-2 IgG Ab 08/05/20 08/05/20 08/05/20 16:56 20:07 23:29 WBC RBC Hgb Hct MCH MCHC RDW Plt Count Lymph % (Auto) Lymph # (Auto) Seg Neutrophils % Seg Neuts % (Manual) Lymphocytes % (Manual) Eosinophils % (Manual) Nucleated RBC % Seg Neutrophils # Seg Neutrophils # Man Lymphocytes # (Manual) Eosinophils # (Manual) PT INR D-Dimer Heparin Anti-Xa Level ABG pH POC ABG pCO2 POC ABG pO2 ABG pO2 ABG HCO3 ABG O2 Saturation ABG Base Excess ABG Hemoglobin ABG Oxyhemoglobin ABG Sodium ABG Potassium ABG Chloride ABG Glucose Oxyhemoglobin Carboxyhemoglobin Sodium Potassium Chloride Carbon Dioxide BUN Creatinine Glucose POC Glucose 120 H 156 H Lactic Acid Calcium Ferritin AST ALT Lactate Dehydrogenase C-Reactive Protein Total Protein Albumin Triglycerides Arterial Blood Glucose Arterial Blood Ionized Calcium Urine Creatinine Urine Total Protein Vancomycin Trough 27.0 H Coronavirus (PCR) SARS-CoV-2 IgG Ab 08/06/20 08/06/20 08/06/20 04:00 04:00 05:32 WBC 12.6 H RBC 2.40 L Hgb 7.2 L Hct 22.4 L MCH MCHC RDW 16.9 H Plt Count Lymph % (Auto) Lymph # (Auto) Seg Neutrophils % Seg Neuts % (Manual) 86.0 H Lymphocytes % (Manual) 5.0 L Eosinophils % (Manual) Nucleated RBC % Seg Neutrophils # Seg Neutrophils # Man 10.8 H Lymphocytes # (Manual) 0.6 L Eosinophils # (Manual) PT INR D-Dimer Heparin Anti-Xa Level ABG pH POC ABG pCO2 POC ABG pO2 ABG pO2 ABG HCO3 ABG O2 Saturation ABG Base Excess ABG Hemoglobin ABG Oxyhemoglobin ABG Sodium ABG Potassium ABG Chloride ABG Glucose Oxyhemoglobin Carboxyhemoglobin Sodium 147 H Potassium Chloride 112.5 H Carbon Dioxide BUN 27 H Creatinine Glucose 193 H POC Glucose 155 H Lactic Acid Calcium 8.3 L Ferritin AST ALT 77 H Lactate Dehydrogenase C-Reactive Protein Total Protein 5.0 L Albumin 2.2 L Triglycerides Arterial Blood Glucose Arterial Blood Ionized Calcium Urine Creatinine Urine Total Protein Vancomycin Trough Coronavirus (PCR) SARS-CoV-2 IgG Ab 08/06/20 08/06/20 08/06/20 09:31 11:55 17:44 WBC RBC Hgb Hct MCH MCHC RDW Plt Count Lymph % (Auto) Lymph # (Auto) Seg Neutrophils % Seg Neuts % (Manual) Lymphocytes % (Manual) Eosinophils % (Manual) Nucleated RBC % Seg Neutrophils # Seg Neutrophils # Man Lymphocytes # (Manual) Eosinophils # (Manual) PT INR D-Dimer Heparin Anti-Xa Level ABG pH POC ABG pCO2 POC ABG pO2 ABG pO2 ABG HCO3 ABG O2 Saturation ABG Base Excess ABG Hemoglobin ABG Oxyhemoglobin ABG Sodium ABG Potassium ABG Chloride ABG Glucose Oxyhemoglobin Carboxyhemoglobin Sodium Potassium Chloride Carbon Dioxide BUN Creatinine Glucose POC Glucose 140 H 151 H 132 H Lactic Acid Calcium Ferritin AST ALT Lactate Dehydrogenase C-Reactive Protein Total Protein Albumin Triglycerides Arterial Blood Glucose Arterial Blood Ionized Calcium Urine Creatinine Urine Total Protein Vancomycin Trough Coronavirus (PCR) SARS-CoV-2 IgG Ab 08/06/20 08/06/20 08/06/20 21:11 23:21 Unknown WBC RBC Hgb Hct MCH MCHC RDW Plt Count Lymph % (Auto) Lymph # (Auto) Seg Neutrophils % Seg Neuts % (Manual) Lymphocytes % (Manual) Eosinophils % (Manual) Nucleated RBC % Seg Neutrophils # Seg Neutrophils # Man Lymphocytes # (Manual) Eosinophils # (Manual) PT INR D-Dimer Heparin Anti-Xa Level ABG pH POC ABG pCO2 49.3 H 50.5 H POC ABG pO2 62.1 L 70.5 L ABG pO2 ABG HCO3 ABG O2 Saturation ABG Base Excess ABG Hemoglobin 8.6 L 8.3 L ABG Oxyhemoglobin 90.2 L ABG Sodium ABG Potassium ABG Chloride 111.0 H 113.0 H ABG Glucose 171 H 204 H Oxyhemoglobin Carboxyhemoglobin 1.7 H Sodium Potassium Chloride Carbon Dioxide BUN Creatinine Glucose POC Glucose 160 H Lactic Acid Calcium Ferritin AST ALT Lactate Dehydrogenase C-Reactive Protein Total Protein Albumin Triglycerides Arterial Blood Glucose 171 H 204 H Arterial Blood Ionized Calcium Urine Creatinine Urine Total Protein Vancomycin Trough Coronavirus (PCR) SARS-CoV-2 IgG Ab 08/07/20 08/07/20 08/07/20 02:06 02:06 04:00 WBC 18.0 H RBC 2.91 L Hgb 8.5 L Hct 27.2 L MCH MCHC RDW 17.7 H Plt Count Lymph % (Auto) 5.3 L Lymph # (Auto) 1.0 L Seg Neutrophils % Seg Neuts % (Manual) Lymphocytes % (Manual) Eosinophils % (Manual) Nucleated RBC % Seg Neutrophils # 16.6 H Seg Neutrophils # Man Lymphocytes # (Manual) Eosinophils # (Manual) PT INR D-Dimer Heparin Anti-Xa Level ABG pH POC ABG pCO2 POC ABG pO2 ABG pO2 111.4 H ABG HCO3 27.6 H ABG O2 Saturation ABG Base Excess ABG Hemoglobin 8.5 L ABG Oxyhemoglobin ABG Sodium ABG Potassium ABG Chloride ABG Glucose Oxyhemoglobin Carboxyhemoglobin Sodium 146 H Potassium Chloride 110.9 H Carbon Dioxide BUN 27 H Creatinine 0.5 L Glucose 187 H POC Glucose Lactic Acid Calcium Ferritin AST ALT Lactate Dehydrogenase C-Reactive Protein Total Protein Albumin Triglycerides Arterial Blood Glucose Arterial Blood Ionized Calcium Urine Creatinine Urine Total Protein Vancomycin Trough Coronavirus (PCR) SARS-CoV-2 IgG Ab 08/07/20 08/07/20 08/07/20 05:28 11:15 12:09 WBC RBC Hgb Hct MCH MCHC RDW Plt Count Lymph % (Auto) Lymph # (Auto) Seg Neutrophils % Seg Neuts % (Manual) Lymphocytes % (Manual) Eosinophils % (Manual) Nucleated RBC % Seg Neutrophils # Seg Neutrophils # Man Lymphocytes # (Manual) Eosinophils # (Manual) PT INR D-Dimer Heparin Anti-Xa Level 0.15 L ABG pH POC ABG pCO2 POC ABG pO2 ABG pO2 ABG HCO3 ABG O2 Saturation ABG Base Excess ABG Hemoglobin ABG Oxyhemoglobin ABG Sodium ABG Potassium ABG Chloride ABG Glucose Oxyhemoglobin Carboxyhemoglobin Sodium Potassium Chloride Carbon Dioxide BUN Creatinine Glucose POC Glucose 161 H 191 H Lactic Acid Calcium Ferritin AST ALT Lactate Dehydrogenase C-Reactive Protein Total Protein Albumin Triglycerides Arterial Blood Glucose Arterial Blood Ionized Calcium Urine Creatinine Urine Total Protein Vancomycin Trough Coronavirus (PCR) SARS-CoV-2 IgG Ab 08/07/20 08/07/20 08/07/20 18:25 22:31 23:39 WBC RBC Hgb Hct MCH MCHC RDW Plt Count Lymph % (Auto) Lymph # (Auto) Seg Neutrophils % Seg Neuts % (Manual) Lymphocytes % (Manual) Eosinophils % (Manual) Nucleated RBC % Seg Neutrophils # Seg Neutrophils # Man Lymphocytes # (Manual) Eosinophils # (Manual) PT INR D-Dimer Heparin Anti-Xa Level 0.25 L ABG pH POC ABG pCO2 POC ABG pO2 ABG pO2 ABG HCO3 ABG O2 Saturation ABG Base Excess ABG Hemoglobin ABG Oxyhemoglobin ABG Sodium ABG Potassium ABG Chloride ABG Glucose Oxyhemoglobin Carboxyhemoglobin Sodium Potassium Chloride Carbon Dioxide BUN Creatinine Glucose POC Glucose 195 H 220 H Lactic Acid Calcium Ferritin AST ALT Lactate Dehydrogenase C-Reactive Protein Total Protein Albumin Triglycerides Arterial Blood Glucose Arterial Blood Ionized Calcium Urine Creatinine Urine Total Protein Vancomycin Trough Coronavirus (PCR) SARS-CoV-2 IgG Ab 08/08/20 08/08/20 05:54 11:56 WBC RBC Hgb Hct MCH MCHC RDW Plt Count Lymph % (Auto) Lymph # (Auto) Seg Neutrophils % Seg Neuts % (Manual) Lymphocytes % (Manual) Eosinophils % (Manual) Nucleated RBC % Seg Neutrophils # Seg Neutrophils # Man Lymphocytes # (Manual) Eosinophils # (Manual) PT INR D-Dimer Heparin Anti-Xa Level ABG pH POC ABG pCO2 POC ABG pO2 ABG pO2 ABG HCO3 ABG O2 Saturation ABG Base Excess ABG Hemoglobin ABG Oxyhemoglobin ABG Sodium ABG Potassium ABG Chloride ABG Glucose Oxyhemoglobin Carboxyhemoglobin Sodium Potassium Chloride Carbon Dioxide BUN Creatinine Glucose POC Glucose 232 H 155 H Lactic Acid Calcium Ferritin AST ALT Lactate Dehydrogenase C-Reactive Protein Total Protein Albumin Triglycerides Arterial Blood Glucose Arterial Blood Ionized Calcium Urine Creatinine Urine Total Protein Vancomycin Trough Coronavirus (PCR) SARS-CoV-2 IgG Ab Allied health notes reviewed: nursing
--- NOTE | 2020-08-08 17:59 | Progress Note ---
Subjective Date of service: 08/08/20 Principal diagnosis: Ac hypoxemic resp failure; PNA; COVID-19 infxn; SLE; Asthma exacerbation Objective Vital Signs - 12hr 08/08/20 08/08/20 08/08/20 06:00 06:16 06:30 Temperature Pulse Rate 89 90 90 Pulse Rate [ Bilateral Throughout] Pulse Rate [ From Monitor] Respiratory 13 19 17 Rate Respiratory Rate [Bilateral Throughout] Blood Pressure 149/70 139/71 143/70 O2 Sat by Pulse 100 100 100 Oximetry 08/08/20 08/08/20 08/08/20 06:45 07:00 07:16 Temperature Pulse Rate 92 H 91 H 91 H Pulse Rate [ Bilateral Throughout] Pulse Rate [ From Monitor] Respiratory 24 26 H 31 H Rate Respiratory Rate [Bilateral Throughout] Blood Pressure 155/71 151/72 146/72 O2 Sat by Pulse 100 100 100 Oximetry 08/08/20 08/08/20 08/08/20 07:30 07:46 08:00 Temperature 98.7 F Pulse Rate 92 H 93 H 91 H Pulse Rate [ Bilateral Throughout] Pulse Rate [ 91 H From Monitor] Respiratory 30 H 30 H 30 H Rate Respiratory Rate [Bilateral Throughout] Blood Pressure 152/72 147/70 145/68 O2 Sat by Pulse 100 100 100 Oximetry 08/08/20 08/08/20 08/08/20 08:16 08:30 08:37 Temperature Pulse Rate 90 93 H 95 H Pulse Rate [ Bilateral Throughout] Pulse Rate [ From Monitor] Respiratory 31 H 31 H Rate Respiratory Rate [Bilateral Throughout] Blood Pressure 138/66 138/75 138/75 O2 Sat by Pulse 100 99 100 Oximetry 08/08/20 08/08/20 08/08/20 08:46 09:00 09:16 Temperature Pulse Rate 92 H 94 H 93 H Pulse Rate [ Bilateral Throughout] Pulse Rate [ From Monitor] Respiratory 10 L 10 L 21 Rate Respiratory Rate [Bilateral Throughout] Blood Pressure 151/76 149/79 156/75 O2 Sat by Pulse 98 98 99 Oximetry 08/08/20 08/08/20 08/08/20 09:25 09:30 09:41 Temperature Pulse Rate 94 H 94 H Pulse Rate [ 92 H Bilateral Throughout] Pulse Rate [ From Monitor] Respiratory 10 L Rate Respiratory 31 H Rate [Bilateral Throughout] Blood Pressure 147/77 147/77 O2 Sat by Pulse 99 95 Oximetry 08/08/20 08/08/20 08/08/20 09:46 10:00 10:16 Temperature Pulse Rate 95 H 96 H 97 H Pulse Rate [ Bilateral Throughout] Pulse Rate [ From Monitor] Respiratory 11 L 11 L 15 Rate Respiratory Rate [Bilateral Throughout] Blood Pressure 175/79 147/80 152/78 O2 Sat by Pulse 95 95 95 Oximetry 08/08/20 08/08/20 08/08/20 10:30 10:46 11:00 Temperature Pulse Rate 97 H 98 H 99 H Pulse Rate [ Bilateral Throughout] Pulse Rate [ From Monitor] Respiratory 14 18 14 Rate Respiratory Rate [Bilateral Throughout] Blood Pressure 146/77 144/74 142/73 O2 Sat by Pulse 95 96 96 Oximetry 08/08/20 08/08/20 08/08/20 11:16 11:30 11:45 Temperature Pulse Rate 100 H 102 H 103 H Pulse Rate [ Bilateral Throughout] Pulse Rate [ From Monitor] Respiratory 18 14 15 Rate Respiratory Rate [Bilateral Throughout] Blood Pressure 141/78 160/77 171/87 O2 Sat by Pulse 96 97 96 Oximetry 08/08/20 08/08/20 08/08/20 12:00 12:03 12:16 Temperature 99.3 F Pulse Rate 102 H 103 H 101 H Pulse Rate [ Bilateral Throughout] Pulse Rate [ 102 H From Monitor] Respiratory 17 11 L Rate Respiratory Rate [Bilateral Throughout] Blood Pressure 138/74 138/74 118/79 O2 Sat by Pulse 97 96 96 Oximetry 08/08/20 08/08/20 08/08/20 12:30 12:46 13:00 Temperature Pulse Rate 104 H 104 H 106 H Pulse Rate [ Bilateral Throughout] Pulse Rate [ From Monitor] Respiratory 14 13 14 Rate Respiratory Rate [Bilateral Throughout] Blood Pressure 141/86 159/84 180/87 O2 Sat by Pulse 95 95 95 Oximetry 08/08/20 08/08/20 08/08/20 13:15 13:30 13:46 Temperature Pulse Rate 103 H 104 H 101 H Pulse Rate [ Bilateral Throughout] Pulse Rate [ From Monitor] Respiratory 14 14 13 Rate Respiratory Rate [Bilateral Throughout] Blood Pressure 168/85 168/89 168/89 O2 Sat by Pulse 95 95 95 Oximetry 08/08/20 08/08/20 08/08/20 14:00 14:16 14:30 Temperature Pulse Rate 119 H 140 H 135 H Pulse Rate [ Bilateral Throughout] Pulse Rate [ From Monitor] Respiratory 20 31 H 22 Rate Respiratory Rate [Bilateral Throughout] Blood Pressure 168/89 141/79 141/79 O2 Sat by Pulse 100 96 98 Oximetry 08/08/20 08/08/20 08/08/20 14:45 15:00 15:16 Temperature Pulse Rate 127 H 121 H 119 H Pulse Rate [ Bilateral Throughout] Pulse Rate [ From Monitor] Respiratory 12 15 15 Rate Respiratory Rate [Bilateral Throughout] Blood Pressure 133/76 121/79 138/80 O2 Sat by Pulse 98 98 98 Oximetry 08/08/20 08/08/20 08/08/20 15:30 15:46 16:00 Temperature 99.7 F H Pulse Rate 119 H 115 H 114 H Pulse Rate [ Bilateral Throughout] Pulse Rate [ From Monitor] Respiratory 14 13 11 L Rate Respiratory Rate [Bilateral Throughout] Blood Pressure 128/83 122/80 111/81 O2 Sat by Pulse 99 99 99 Oximetry 08/08/20 08/08/20 08/08/20 16:16 16:30 16:46 Temperature Pulse Rate 114 H 114 H 114 H Pulse Rate [ Bilateral Throughout] Pulse Rate [ From Monitor] Respiratory 13 13 12 Rate Respiratory Rate [Bilateral Throughout] Blood Pressure 121/82 126/84 121/82 O2 Sat by Pulse 100 100 99 Oximetry 08/08/20 08/08/20 17:00 17:01 Temperature Pulse Rate 115 H 112 H Pulse Rate [ Bilateral Throughout] Pulse Rate [ From Monitor] Respiratory 19 Rate Respiratory Rate [Bilateral Throughout] Blood Pressure 115/85 115/85 O2 Sat by Pulse 100 97 Oximetry Constitutional: no acute distress, other (middle aged obese female with mildly increased respiratory effort at rest on MVS) Eyes: non-icteric ENT: oropharynx moist, other (ETT 23cm YANET) Neck: supple, no lymphadenopathy, no JVD Effort: mildly labored Ascultation: Bilateral: diminished breath sounds, rhonchi, other (two R. chest tubes and 1 on left (leaks on right side)) Percussion: Bilateral: not dull Cardiovascular: regular rate and rhythm, other (S1,S2) Gastrointestinal: normoactive bowel sounds, soft, non-tender, non-distended Integumentary: normal Extremities: no cyanosis, no edema, pulses normal, no ischemia or petechiae Neurologic: pupils equal and round, other (sedated) Psychiatric: other (unable to assess re: AMS / sedation) CBC and BMP: 08/07/20 02:06 08/07/20 02:06 ABG, PT/INR, D-dimer: ABG ABG pH 7.379 pH Units (7.350-7.450) 08/07/20 04:00 POC ABG pCO2 50.5 mmHg (32.0-48.0) H 08/06/20 Unknown ABG pCO2 47.9 mm Hg 08/07/20 04:00 POC ABG pO2 70.5 mmHg (83-108) L 08/06/20 Unknown ABG pO2 111.4 mm Hg (80.0-90.0) H 08/07/20 04:00 POC ABG HCO3 26.4 08/06/20 Unknown ABG O2 Saturation 97.9 % (95.0-99.0) 08/07/20 04:00 PT/INR, D-dimer PT 15.4 Sec. (12.2-14.9) H 08/05/20 13:35 INR 1.22 (0.87-1.13) H 08/05/20 13:35 D-Dimer 4748.32 ng/mlDDU (0-234) H 08/05/20 13:35 Abnormal lab findings: Abnormal Labs 07/06/20 07/06/20 07/07/20 05:24 17:16 04:50 WBC 13.5 H 12.7 H RBC Hgb Hct MCH MCHC RDW Plt Count Lymph % (Auto) Lymph # (Auto) Seg Neutrophils % Seg Neuts % (Manual) 86.0 H 87.0 H Lymphocytes % (Manual) 6.0 L 9.0 L Eosinophils % (Manual) Nucleated RBC % Seg Neutrophils # Seg Neutrophils # Man 11.6 H 11.0 H Lymphocytes # (Manual) 0.8 L 1.1 L Eosinophils # (Manual) PT INR D-Dimer Heparin Anti-Xa Level ABG pH POC ABG pCO2 POC ABG pO2 ABG pO2 ABG HCO3 ABG O2 Saturation ABG Base Excess ABG Hemoglobin ABG Oxyhemoglobin ABG Sodium ABG Potassium ABG Chloride ABG Glucose Oxyhemoglobin Carboxyhemoglobin Sodium Potassium Chloride Carbon Dioxide BUN Creatinine Glucose POC Glucose Lactic Acid Calcium Ferritin AST ALT Lactate Dehydrogenase 242 H C-Reactive Protein 7.30 H Total Protein Albumin Triglycerides Arterial Blood Glucose Arterial Blood Ionized Calcium Urine Creatinine Urine Total Protein Vancomycin Trough Coronavirus (PCR) SARS-CoV-2 IgG Ab 07/07/20 07/07/20 07/07/20 04:50 14:22 14:22 WBC RBC Hgb Hct MCH MCHC RDW Plt Count Lymph % (Auto) Lymph # (Auto) Seg Neutrophils % Seg Neuts % (Manual) Lymphocytes % (Manual) Eosinophils % (Manual) Nucleated RBC % Seg Neutrophils # Seg Neutrophils # Man Lymphocytes # (Manual) Eosinophils # (Manual) PT INR D-Dimer Heparin Anti-Xa Level ABG pH POC ABG pCO2 POC ABG pO2 ABG pO2 ABG HCO3 ABG O2 Saturation ABG Base Excess ABG Hemoglobin ABG Oxyhemoglobin ABG Sodium ABG Potassium ABG Chloride ABG Glucose Oxyhemoglobin Carboxyhemoglobin Sodium Potassium Chloride Carbon Dioxide BUN 18 H Creatinine Glucose 138 H POC Glucose Lactic Acid Calcium Ferritin 228.2 H AST ALT Lactate Dehydrogenase 277 H C-Reactive Protein Total Protein 5.9 L Albumin 3.4 L Triglycerides Arterial Blood Glucose Arterial Blood Ionized Calcium Urine Creatinine Urine Total Protein Vancomycin Trough Coronavirus (PCR) SARS-CoV-2 IgG Ab 07/08/20 07/08/20 07/08/20 11:18 12:57 16:13 WBC RBC Hgb Hct MCH MCHC RDW Plt Count Lymph % (Auto) Lymph # (Auto) Seg Neutrophils % Seg Neuts % (Manual) Lymphocytes % (Manual) Eosinophils % (Manual) Nucleated RBC % Seg Neutrophils # Seg Neutrophils # Man Lymphocytes # (Manual) Eosinophils # (Manual) PT INR D-Dimer Heparin Anti-Xa Level ABG pH POC ABG pCO2 POC ABG pO2 ABG pO2 39.3 L* ABG HCO3 ABG O2 Saturation 76.8 L ABG Base Excess ABG Hemoglobin ABG Oxyhemoglobin ABG Sodium ABG Potassium ABG Chloride ABG Glucose Oxyhemoglobin 75.3 L Carboxyhemoglobin Sodium Potassium Chloride Carbon Dioxide 20 L D BUN Creatinine Glucose 135 H POC Glucose 106 H Lactic Acid Calcium 8.0 L Ferritin AST ALT Lactate Dehydrogenase C-Reactive Protein Total Protein Albumin Triglycerides Arterial Blood Glucose Arterial Blood Ionized Calcium Urine Creatinine Urine Total Protein Vancomycin Trough Coronavirus (PCR) SARS-CoV-2 IgG Ab 07/08/20 07/08/20 07/09/20 17:04 18:45 04:00 WBC 15.6 H RBC Hgb Hct MCH MCHC RDW Plt Count Lymph % (Auto) 4.7 L Lymph # (Auto) 0.7 L Seg Neutrophils % Seg Neuts % (Manual) Lymphocytes % (Manual) Eosinophils % (Manual) Nucleated RBC % Seg Neutrophils # 14.2 H Seg Neutrophils # Man Lymphocytes # (Manual) Eosinophils # (Manual) PT INR D-Dimer Heparin Anti-Xa Level ABG pH POC ABG pCO2 POC ABG pO2 ABG pO2 181.8 H ABG HCO3 ABG O2 Saturation 99.1 H ABG Base Excess ABG Hemoglobin 11.4 L ABG Oxyhemoglobin ABG Sodium ABG Potassium ABG Chloride ABG Glucose Oxyhemoglobin Carboxyhemoglobin Sodium Potassium Chloride Carbon Dioxide BUN Creatinine Glucose POC Glucose 117 H Lactic Acid Calcium Ferritin AST ALT Lactate Dehydrogenase C-Reactive Protein Total Protein Albumin Triglycerides Arterial Blood Glucose Arterial Blood Ionized Calcium Urine Creatinine Urine Total Protein Vancomycin Trough Coronavirus (PCR) SARS-CoV-2 IgG Ab 07/09/20 07/09/20 07/09/20 04:00 04:00 04:49 WBC RBC Hgb Hct MCH MCHC RDW Plt Count Lymph % (Auto) Lymph # (Auto) Seg Neutrophils % Seg Neuts % (Manual) Lymphocytes % (Manual) Eosinophils % (Manual) Nucleated RBC % Seg Neutrophils # Seg Neutrophils # Man Lymphocytes # (Manual) Eosinophils # (Manual) PT INR D-Dimer Heparin Anti-Xa Level ABG pH POC ABG pCO2 POC ABG pO2 ABG pO2 ABG HCO3 26.2 H ABG O2 Saturation ABG Base Excess ABG Hemoglobin 11.2 L ABG Oxyhemoglobin ABG Sodium ABG Potassium ABG Chloride ABG Glucose Oxyhemoglobin 94.9 L Carboxyhemoglobin Sodium Potassium Chloride Carbon Dioxide BUN Creatinine Glucose 158 H POC Glucose Lactic Acid Calcium 8.2 L Ferritin 320.0 H AST ALT Lactate Dehydrogenase 391 H C-Reactive Protein 9.50 H Total Protein 5.9 L Albumin 3.2 L Triglycerides Arterial Blood Glucose Arterial Blood Ionized Calcium Urine Creatinine Urine Total Protein Vancomycin Trough Coronavirus (PCR) SARS-CoV-2 IgG Ab 07/09/20 07/09/20 07/09/20 11:56 17:49 23:39 WBC RBC Hgb Hct MCH MCHC RDW Plt Count Lymph % (Auto) Lymph # (Auto) Seg Neutrophils % Seg Neuts % (Manual) Lymphocytes % (Manual) Eosinophils % (Manual) Nucleated RBC % Seg Neutrophils # Seg Neutrophils # Man Lymphocytes # (Manual) Eosinophils # (Manual) PT INR D-Dimer Heparin Anti-Xa Level ABG pH POC ABG pCO2 POC ABG pO2 ABG pO2 ABG HCO3 ABG O2 Saturation ABG Base Excess ABG Hemoglobin ABG Oxyhemoglobin ABG Sodium ABG Potassium ABG Chloride ABG Glucose Oxyhemoglobin Carboxyhemoglobin Sodium Potassium Chloride Carbon Dioxide BUN Creatinine Glucose POC Glucose 156 H 119 H 145 H Lactic Acid Calcium Ferritin AST ALT Lactate Dehydrogenase C-Reactive Protein Total Protein Albumin Triglycerides Arterial Blood Glucose Arterial Blood Ionized Calcium Urine Creatinine Urine Total Protein Vancomycin Trough Coronavirus (PCR) SARS-CoV-2 IgG Ab 07/10/20 07/10/20 07/10/20 03:32 05:26 11:22 WBC RBC Hgb Hct MCH MCHC RDW Plt Count Lymph % (Auto) Lymph # (Auto) Seg Neutrophils % Seg Neuts % (Manual) Lymphocytes % (Manual) Eosinophils % (Manual) Nucleated RBC % Seg Neutrophils # Seg Neutrophils # Man Lymphocytes # (Manual) Eosinophils # (Manual) PT INR D-Dimer Heparin Anti-Xa Level ABG pH POC ABG pCO2 POC ABG pO2 ABG pO2 75.7 L ABG HCO3 27.5 H ABG O2 Saturation ABG Base Excess ABG Hemoglobin 9.3 L ABG Oxyhemoglobin ABG Sodium ABG Potassium ABG Chloride ABG Glucose Oxyhemoglobin 94.7 L Carboxyhemoglobin Sodium Potassium Chloride Carbon Dioxide BUN Creatinine Glucose POC Glucose 156 H 148 H Lactic Acid Calcium Ferritin AST ALT Lactate Dehydrogenase C-Reactive Protein Total Protein Albumin Triglycerides Arterial Blood Glucose Arterial Blood Ionized Calcium Urine Creatinine Urine Total Protein Vancomycin Trough Coronavirus (PCR) SARS-CoV-2 IgG Ab 07/10/20 07/10/20 07/10/20 12:10 12:10 18:20 WBC 14.1 H RBC 3.33 L Hgb 9.9 L Hct MCH MCHC RDW Plt Count Lymph % (Auto) Lymph # (Auto) Seg Neutrophils % Seg Neuts % (Manual) 89.0 H Lymphocytes % (Manual) 8.0 L Eosinophils % (Manual) Nucleated RBC % Seg Neutrophils # Seg Neutrophils # Man 12.5 H Lymphocytes # (Manual) 1.1 L Eosinophils # (Manual) PT INR D-Dimer Heparin Anti-Xa Level ABG pH POC ABG pCO2 POC ABG pO2 ABG pO2 ABG HCO3 ABG O2 Saturation ABG Base Excess ABG Hemoglobin ABG Oxyhemoglobin ABG Sodium ABG Potassium ABG Chloride ABG Glucose Oxyhemoglobin Carboxyhemoglobin Sodium Potassium Chloride Carbon Dioxide BUN 21 H Creatinine Glucose 154 H POC Glucose 181 H Lactic Acid Calcium 8.0 L Ferritin AST ALT Lactate Dehydrogenase C-Reactive Protein Total Protein 5.4 L Albumin 3.0 L Triglycerides Arterial Blood Glucose Arterial Blood Ionized Calcium Urine Creatinine Urine Total Protein Vancomycin Trough Coronavirus (PCR) SARS-CoV-2 IgG Ab 07/10/20 07/11/20 07/11/20 23:51 04:05 05:43 WBC RBC Hgb Hct MCH MCHC RDW Plt Count Lymph % (Auto) Lymph # (Auto) Seg Neutrophils % Seg Neuts % (Manual) Lymphocytes % (Manual) Eosinophils % (Manual) Nucleated RBC % Seg Neutrophils # Seg Neutrophils # Man Lymphocytes # (Manual) Eosinophils # (Manual) PT INR D-Dimer Heparin Anti-Xa Level ABG pH 7.348 L POC ABG pCO2 POC ABG pO2 ABG pO2 93.6 H ABG HCO3 28.5 H ABG O2 Saturation ABG Base Excess ABG Hemoglobin 10.1 L ABG Oxyhemoglobin ABG Sodium ABG Potassium ABG Chloride ABG Glucose Oxyhemoglobin Carboxyhemoglobin Sodium Potassium Chloride Carbon Dioxide BUN Creatinine Glucose POC Glucose 116 H 132 H Lactic Acid Calcium Ferritin AST ALT Lactate Dehydrogenase C-Reactive Protein Total Protein Albumin Triglycerides Arterial Blood Glucose Arterial Blood Ionized Calcium Urine Creatinine Urine Total Protein Vancomycin Trough Coronavirus (PCR) SARS-CoV-2 IgG Ab 07/11/20 07/11/20 07/11/20 09:11 09:11 09:11 WBC 15.8 H RBC 3.44 L Hgb Hct MCH MCHC RDW Plt Count Lymph % (Auto) Lymph # (Auto) Seg Neutrophils % Seg Neuts % (Manual) 92.0 H Lymphocytes % (Manual) 4.0 L Eosinophils % (Manual) Nucleated RBC % Seg Neutrophils # Seg Neutrophils # Man 14.5 H Lymphocytes # (Manual) 0.6 L Eosinophils # (Manual) PT INR D-Dimer 360.61 H Heparin Anti-Xa Level ABG pH POC ABG pCO2 POC ABG pO2 ABG pO2 ABG HCO3 ABG O2 Saturation ABG Base Excess ABG Hemoglobin ABG Oxyhemoglobin ABG Sodium ABG Potassium ABG Chloride ABG Glucose Oxyhemoglobin Carboxyhemoglobin Sodium Potassium Chloride 107.1 H Carbon Dioxide BUN 22 H Creatinine Glucose 149 H POC Glucose Lactic Acid Calcium 7.8 L Ferritin AST ALT Lactate Dehydrogenase 483 H C-Reactive Protein 2.30 H Total Protein 4.9 L Albumin 3.0 L Triglycerides Arterial Blood Glucose Arterial Blood Ionized Calcium Urine Creatinine Urine Total Protein Vancomycin Trough Coronavirus (PCR) SARS-CoV-2 IgG Ab 07/11/20 07/11/20 07/11/20 09:11 12:16 17:55 WBC RBC Hgb Hct MCH MCHC RDW Plt Count Lymph % (Auto) Lymph # (Auto) Seg Neutrophils % Seg Neuts % (Manual) Lymphocytes % (Manual) Eosinophils % (Manual) Nucleated RBC % Seg Neutrophils # Seg Neutrophils # Man Lymphocytes # (Manual) Eosinophils # (Manual) PT INR D-Dimer Heparin Anti-Xa Level ABG pH POC ABG pCO2 POC ABG pO2 ABG pO2 ABG HCO3 ABG O2 Saturation ABG Base Excess ABG Hemoglobin ABG Oxyhemoglobin ABG Sodium ABG Potassium ABG Chloride ABG Glucose Oxyhemoglobin Carboxyhemoglobin Sodium Potassium Chloride Carbon Dioxide BUN Creatinine Glucose POC Glucose 157 H 166 H Lactic Acid Calcium Ferritin 371.2 H AST ALT Lactate Dehydrogenase C-Reactive Protein Total Protein Albumin Triglycerides Arterial Blood Glucose Arterial Blood Ionized Calcium Urine Creatinine Urine Total Protein Vancomycin Trough Coronavirus (PCR) SARS-CoV-2 IgG Ab 07/12/20 07/12/20 07/12/20 00:32 04:00 04:00 WBC RBC 3.52 L Hgb Hct MCH MCHC RDW Plt Count Lymph % (Auto) Lymph # (Auto) Seg Neutrophils % Seg Neuts % (Manual) 90.0 H Lymphocytes % (Manual) 4.0 L Eosinophils % (Manual) Nucleated RBC % Seg Neutrophils # Seg Neutrophils # Man 9.5 H Lymphocytes # (Manual) 0.4 L Eosinophils # (Manual) PT INR D-Dimer Heparin Anti-Xa Level ABG pH POC ABG pCO2 POC ABG pO2 ABG pO2 ABG HCO3 ABG O2 Saturation ABG Base Excess ABG Hemoglobin ABG Oxyhemoglobin ABG Sodium ABG Potassium ABG Chloride ABG Glucose Oxyhemoglobin Carboxyhemoglobin Sodium Potassium Chloride Carbon Dioxide 31 H BUN 21 H Creatinine Glucose 175 H POC Glucose 178 H Lactic Acid Calcium 8.0 L Ferritin AST ALT Lactate Dehydrogenase C-Reactive Protein Total Protein 5.4 L Albumin 3.0 L Triglycerides Arterial Blood Glucose Arterial Blood Ionized Calcium Urine Creatinine Urine Total Protein Vancomycin Trough Coronavirus (PCR) SARS-CoV-2 IgG Ab 07/12/20 07/12/20 07/12/20 04:01 05:47 12:09 WBC RBC Hgb Hct MCH MCHC RDW Plt Count Lymph % (Auto) Lymph # (Auto) Seg Neutrophils % Seg Neuts % (Manual) Lymphocytes % (Manual) Eosinophils % (Manual) Nucleated RBC % Seg Neutrophils # Seg Neutrophils # Man Lymphocytes # (Manual) Eosinophils # (Manual) PT INR D-Dimer Heparin Anti-Xa Level ABG pH 7.465 H POC ABG pCO2 POC ABG pO2 ABG pO2 ABG HCO3 ABG O2 Saturation ABG Base Excess ABG Hemoglobin 10.6 L ABG Oxyhemoglobin ABG Sodium ABG Potassium ABG Chloride ABG Glucose 177 H Oxyhemoglobin Carboxyhemoglobin Sodium Potassium Chloride Carbon Dioxide BUN Creatinine Glucose POC Glucose 185 H 227 H Lactic Acid Calcium Ferritin AST ALT Lactate Dehydrogenase C-Reactive Protein Total Protein Albumin Triglycerides Arterial Blood Glucose 177 H Arterial Blood Ionized Calcium 4.5 L Urine Creatinine Urine Total Protein Vancomycin Trough Coronavirus (PCR) SARS-CoV-2 IgG Ab 07/12/20 07/12/20 07/13/20 17:34 23:57 05:06 WBC RBC Hgb Hct MCH MCHC RDW Plt Count Lymph % (Auto) Lymph # (Auto) Seg Neutrophils % Seg Neuts % (Manual) Lymphocytes % (Manual) Eosinophils % (Manual) Nucleated RBC % Seg Neutrophils # Seg Neutrophils # Man Lymphocytes # (Manual) Eosinophils # (Manual) PT INR D-Dimer Heparin Anti-Xa Level ABG pH POC ABG pCO2 POC ABG pO2 ABG pO2 ABG HCO3 ABG O2 Saturation ABG Base Excess ABG Hemoglobin ABG Oxyhemoglobin ABG Sodium ABG Potassium ABG Chloride ABG Glucose Oxyhemoglobin Carboxyhemoglobin Sodium Potassium Chloride Carbon Dioxide BUN Creatinine Glucose POC Glucose 202 H 163 H 166 H Lactic Acid Calcium Ferritin AST ALT Lactate Dehydrogenase C-Reactive Protein Total Protein Albumin Triglycerides Arterial Blood Glucose Arterial Blood Ionized Calcium Urine Creatinine Urine Total Protein Vancomycin Trough Coronavirus (PCR) SARS-CoV-2 IgG Ab 07/13/20 07/13/20 07/13/20 07:20 07:20 07:20 WBC 20.5 H RBC Hgb Hct MCH MCHC RDW Plt Count Lymph % (Auto) Lymph # (Auto) Seg Neutrophils % Seg Neuts % (Manual) 93.0 H Lymphocytes % (Manual) 3.0 L Eosinophils % (Manual) Nucleated RBC % Seg Neutrophils # Seg Neutrophils # Man 19.1 H Lymphocytes # (Manual) 0.6 L Eosinophils # (Manual) PT INR D-Dimer 826.36 H Heparin Anti-Xa Level ABG pH POC ABG pCO2 POC ABG pO2 ABG pO2 ABG HCO3 ABG O2 Saturation ABG Base Excess ABG Hemoglobin ABG Oxyhemoglobin ABG Sodium ABG Potassium ABG Chloride ABG Glucose Oxyhemoglobin Carboxyhemoglobin Sodium Potassium Chloride Carbon Dioxide 31 H BUN 25 H Creatinine Glucose 163 H POC Glucose Lactic Acid Calcium 8.1 L Ferritin AST ALT Lactate Dehydrogenase 512 H C-Reactive Protein 1.80 H Total Protein 5.8 L Albumin 3.2 L Triglycerides Arterial Blood Glucose Arterial Blood Ionized Calcium Urine Creatinine Urine Total Protein Vancomycin Trough Coronavirus (PCR) SARS-CoV-2 IgG Ab 07/13/20 07/13/20 07/13/20 07:20 11:37 17:20 WBC RBC Hgb Hct MCH MCHC RDW Plt Count Lymph % (Auto) Lymph # (Auto) Seg Neutrophils % Seg Neuts % (Manual) Lymphocytes % (Manual) Eosinophils % (Manual) Nucleated RBC % Seg Neutrophils # Seg Neutrophils # Man Lymphocytes # (Manual) Eosinophils # (Manual) PT INR D-Dimer Heparin Anti-Xa Level ABG pH POC ABG pCO2 POC ABG pO2 ABG pO2 ABG HCO3 ABG O2 Saturation ABG Base Excess ABG Hemoglobin ABG Oxyhemoglobin ABG Sodium ABG Potassium ABG Chloride ABG Glucose Oxyhemoglobin Carboxyhemoglobin Sodium Potassium Chloride Carbon Dioxide BUN Creatinine Glucose POC Glucose 232 H 210 H Lactic Acid Calcium Ferritin 219.8 H AST ALT Lactate Dehydrogenase C-Reactive Protein Total Protein Albumin Triglycerides Arterial Blood Glucose Arterial Blood Ionized Calcium Urine Creatinine Urine Total Protein Vancomycin Trough Coronavirus (PCR) SARS-CoV-2 IgG Ab 07/13/20 07/13/20 07/14/20 23:57 Unknown 05:22 WBC RBC Hgb Hct MCH MCHC RDW Plt Count Lymph % (Auto) Lymph # (Auto) Seg Neutrophils % Seg Neuts % (Manual) Lymphocytes % (Manual) Eosinophils % (Manual) Nucleated RBC % Seg Neutrophils # Seg Neutrophils # Man Lymphocytes # (Manual) Eosinophils # (Manual) PT INR D-Dimer Heparin Anti-Xa Level ABG pH 7.341 L POC ABG pCO2 POC ABG pO2 133.0 H ABG pO2 56.5 L ABG HCO3 29.7 H ABG O2 Saturation 89.3 L ABG Base Excess ABG Hemoglobin 11.0 L ABG Oxyhemoglobin ABG Sodium ABG Potassium ABG Chloride ABG Glucose 207 H Oxyhemoglobin 87.7 L Carboxyhemoglobin Sodium Potassium Chloride Carbon Dioxide BUN Creatinine Glucose POC Glucose 190 H Lactic Acid Calcium Ferritin AST ALT Lactate Dehydrogenase C-Reactive Protein Total Protein Albumin Triglycerides Arterial Blood Glucose 207 H Arterial Blood Ionized Calcium 4.5 L Urine Creatinine Urine Total Protein Vancomycin Trough Coronavirus (PCR) SARS-CoV-2 IgG Ab 07/14/20 07/14/20 07/14/20 05:54 11:16 17:50 WBC RBC Hgb Hct MCH MCHC RDW Plt Count Lymph % (Auto) Lymph # (Auto) Seg Neutrophils % Seg Neuts % (Manual) Lymphocytes % (Manual) Eosinophils % (Manual) Nucleated RBC % Seg Neutrophils # Seg Neutrophils # Man Lymphocytes # (Manual) Eosinophils # (Manual) PT INR D-Dimer Heparin Anti-Xa Level ABG pH POC ABG pCO2 POC ABG pO2 ABG pO2 ABG HCO3 ABG O2 Saturation ABG Base Excess ABG Hemoglobin ABG Oxyhemoglobin ABG Sodium ABG Potassium ABG Chloride ABG Glucose Oxyhemoglobin Carboxyhemoglobin Sodium Potassium Chloride Carbon Dioxide BUN Creatinine Glucose POC Glucose 206 H 196 H 205 H Lactic Acid Calcium Ferritin AST ALT Lactate Dehydrogenase C-Reactive Protein Total Protein Albumin Triglycerides Arterial Blood Glucose Arterial Blood Ionized Calcium Urine Creatinine Urine Total Protein Vancomycin Trough Coronavirus (PCR) SARS-CoV-2 IgG Ab 07/14/20 07/15/20 07/15/20 23:28 03:16 06:12 WBC RBC Hgb Hct MCH MCHC RDW Plt Count Lymph % (Auto) Lymph # (Auto) Seg Neutrophils % Seg Neuts % (Manual) Lymphocytes % (Manual) Eosinophils % (Manual) Nucleated RBC % Seg Neutrophils # Seg Neutrophils # Man Lymphocytes # (Manual) Eosinophils # (Manual) PT INR D-Dimer Heparin Anti-Xa Level ABG pH POC ABG pCO2 49.2 H POC ABG pO2 120.3 H ABG pO2 ABG HCO3 ABG O2 Saturation ABG Base Excess ABG Hemoglobin 9.5 L ABG Oxyhemoglobin ABG Sodium ABG Potassium ABG Chloride ABG Glucose 148 H Oxyhemoglobin Carboxyhemoglobin Sodium Potassium Chloride Carbon Dioxide BUN Creatinine Glucose POC Glucose 160 H 178 H Lactic Acid Calcium Ferritin AST ALT Lactate Dehydrogenase C-Reactive Protein Total Protein Albumin Triglycerides Arterial Blood Glucose 148 H Arterial Blood Ionized Calcium Urine Creatinine Urine Total Protein Vancomycin Trough Coronavirus (PCR) SARS-CoV-2 IgG Ab 07/15/20 07/15/20 07/15/20 09:00 12:32 14:30 WBC RBC Hgb Hct MCH MCHC RDW Plt Count Lymph % (Auto) Lymph # (Auto) Seg Neutrophils % Seg Neuts % (Manual) Lymphocytes % (Manual) Eosinophils % (Manual) Nucleated RBC % Seg Neutrophils # Seg Neutrophils # Man Lymphocytes # (Manual) Eosinophils # (Manual) PT INR D-Dimer Heparin Anti-Xa Level ABG pH POC ABG pCO2 POC ABG pO2 ABG pO2 ABG HCO3 ABG O2 Saturation ABG Base Excess ABG Hemoglobin ABG Oxyhemoglobin ABG Sodium ABG Potassium ABG Chloride ABG Glucose Oxyhemoglobin Carboxyhemoglobin Sodium Potassium Chloride Carbon Dioxide BUN Creatinine Glucose POC Glucose 173 H Lactic Acid Calcium Ferritin AST ALT Lactate Dehydrogenase 531 H C-Reactive Protein Total Protein Albumin Triglycerides Arterial Blood Glucose Arterial Blood Ionized Calcium Urine Creatinine Urine Total Protein Vancomycin Trough Coronavirus (PCR) SARS-CoV-2 IgG Ab Reactive A 07/15/20 07/15/20 07/16/20 18:24 23:35 04:03 WBC RBC Hgb Hct MCH MCHC RDW Plt Count Lymph % (Auto) Lymph # (Auto) Seg Neutrophils % Seg Neuts % (Manual) Lymphocytes % (Manual) Eosinophils % (Manual) Nucleated RBC % Seg Neutrophils # Seg Neutrophils # Man Lymphocytes # (Manual) Eosinophils # (Manual) PT INR D-Dimer Heparin Anti-Xa Level ABG pH POC ABG pCO2 POC ABG pO2 ABG pO2 72.7 L ABG HCO3 35.5 H ABG O2 Saturation ABG Base Excess 9.4 H ABG Hemoglobin 10.6 L ABG Oxyhemoglobin ABG Sodium ABG Potassium ABG Chloride ABG Glucose Oxyhemoglobin 93.6 L Carboxyhemoglobin Sodium Potassium Chloride Carbon Dioxide BUN Creatinine Glucose POC Glucose 173 H 181 H Lactic Acid Calcium Ferritin AST ALT Lactate Dehydrogenase C-Reactive Protein Total Protein Albumin Triglycerides Arterial Blood Glucose Arterial Blood Ionized Calcium Urine Creatinine Urine Total Protein Vancomycin Trough Coronavirus (PCR) SARS-CoV-2 IgG Ab 07/16/20 07/16/20 07/16/20 05:35 09:00 09:00 WBC 16.5 H RBC 3.59 L Hgb Hct MCH MCHC RDW Plt Count Lymph % (Auto) Lymph # (Auto) Seg Neutrophils % Seg Neuts % (Manual) 96.0 H Lymphocytes % (Manual) 3.0 L Eosinophils % (Manual) Nucleated RBC % Seg Neutrophils # Seg Neutrophils # Man 15.8 H Lymphocytes # (Manual) 0.5 L Eosinophils # (Manual) PT INR D-Dimer Heparin Anti-Xa Level ABG pH POC ABG pCO2 POC ABG pO2 ABG pO2 ABG HCO3 ABG O2 Saturation ABG Base Excess ABG Hemoglobin ABG Oxyhemoglobin ABG Sodium ABG Potassium ABG Chloride ABG Glucose Oxyhemoglobin Carboxyhemoglobin Sodium Potassium Chloride Carbon Dioxide 39 H D BUN 25 H Creatinine 0.4 L Glucose 167 H POC Glucose 129 H Lactic Acid Calcium 8.3 L Ferritin AST ALT Lactate Dehydrogenase C-Reactive Protein Total Protein Albumin Triglycerides Arterial Blood Glucose Arterial Blood Ionized Calcium Urine Creatinine Urine Total Protein Vancomycin Trough Coronavirus (PCR) SARS-CoV-2 IgG Ab 07/16/20 07/16/20 07/17/20 12:32 18:28 00:09 WBC RBC Hgb Hct MCH MCHC RDW Plt Count Lymph % (Auto) Lymph # (Auto) Seg Neutrophils % Seg Neuts % (Manual) Lymphocytes % (Manual) Eosinophils % (Manual) Nucleated RBC % Seg Neutrophils # Seg Neutrophils # Man Lymphocytes # (Manual) Eosinophils # (Manual) PT INR D-Dimer Heparin Anti-Xa Level ABG pH POC ABG pCO2 POC ABG pO2 ABG pO2 ABG HCO3 ABG O2 Saturation ABG Base Excess ABG Hemoglobin ABG Oxyhemoglobin ABG Sodium ABG Potassium ABG Chloride ABG Glucose Oxyhemoglobin Carboxyhemoglobin Sodium Potassium Chloride Carbon Dioxide BUN Creatinine Glucose POC Glucose 187 H 174 H 184 H Lactic Acid Calcium Ferritin AST ALT Lactate Dehydrogenase C-Reactive Protein Total Protein Albumin Triglycerides Arterial Blood Glucose Arterial Blood Ionized Calcium Urine Creatinine Urine Total Protein Vancomycin Trough Coronavirus (PCR) SARS-CoV-2 IgG Ab 07/17/20 07/17/20 07/17/20 04:30 05:47 13:03 WBC RBC Hgb Hct MCH MCHC RDW Plt Count Lymph % (Auto) Lymph # (Auto) Seg Neutrophils % Seg Neuts % (Manual) Lymphocytes % (Manual) Eosinophils % (Manual) Nucleated RBC % Seg Neutrophils # Seg Neutrophils # Man Lymphocytes # (Manual) Eosinophils # (Manual) PT INR D-Dimer Heparin Anti-Xa Level ABG pH POC ABG pCO2 POC ABG pO2 ABG pO2 ABG HCO3 38.1 H ABG O2 Saturation ABG Base Excess 11.3 H ABG Hemoglobin 10.5 L ABG Oxyhemoglobin ABG Sodium ABG Potassium ABG Chloride ABG Glucose Oxyhemoglobin Carboxyhemoglobin Sodium Potassium Chloride Carbon Dioxide BUN Creatinine Glucose POC Glucose 135 H 210 H Lactic Acid Calcium Ferritin AST ALT Lactate Dehydrogenase C-Reactive Protein Total Protein Albumin Triglycerides Arterial Blood Glucose Arterial Blood Ionized Calcium Urine Creatinine Urine Total Protein Vancomycin Trough Coronavirus (PCR) SARS-CoV-2 IgG Ab 07/17/20 07/17/20 07/18/20 16:50 23:39 04:01 WBC RBC Hgb Hct MCH MCHC RDW Plt Count Lymph % (Auto) Lymph # (Auto) Seg Neutrophils % Seg Neuts % (Manual) Lymphocytes % (Manual) Eosinophils % (Manual) Nucleated RBC % Seg Neutrophils # Seg Neutrophils # Man Lymphocytes # (Manual) Eosinophils # (Manual) PT INR D-Dimer Heparin Anti-Xa Level ABG pH POC ABG pCO2 56.8 H POC ABG pO2 61.9 L ABG pO2 ABG HCO3 ABG O2 Saturation ABG Base Excess ABG Hemoglobin 11.7 L ABG Oxyhemoglobin ABG Sodium 134.2 L ABG Potassium 4.7 H ABG Chloride 97.0 L ABG Glucose 173 H Oxyhemoglobin Carboxyhemoglobin Sodium Potassium Chloride Carbon Dioxide BUN Creatinine Glucose POC Glucose 193 H 163 H Lactic Acid Calcium Ferritin AST ALT Lactate Dehydrogenase C-Reactive Protein Total Protein Albumin Triglycerides Arterial Blood Glucose 173 H Arterial Blood Ionized Calcium Urine Creatinine Urine Total Protein Vancomycin Trough Coronavirus (PCR) SARS-CoV-2 IgG Ab 07/18/20 07/18/20 07/18/20 05:41 12:03 17:26 WBC RBC Hgb Hct MCH MCHC RDW Plt Count Lymph % (Auto) Lymph # (Auto) Seg Neutrophils % Seg Neuts % (Manual) Lymphocytes % (Manual) Eosinophils % (Manual) Nucleated RBC % Seg Neutrophils # Seg Neutrophils # Man Lymphocytes # (Manual) Eosinophils # (Manual) PT INR D-Dimer Heparin Anti-Xa Level ABG pH POC ABG pCO2 POC ABG pO2 ABG pO2 ABG HCO3 ABG O2 Saturation ABG Base Excess ABG Hemoglobin ABG Oxyhemoglobin ABG Sodium ABG Potassium ABG Chloride ABG Glucose Oxyhemoglobin Carboxyhemoglobin Sodium Potassium Chloride Carbon Dioxide BUN Creatinine Glucose POC Glucose 153 H 177 H 160 H Lactic Acid Calcium Ferritin AST ALT Lactate Dehydrogenase C-Reactive Protein Total Protein Albumin Triglycerides Arterial Blood Glucose Arterial Blood Ionized Calcium Urine Creatinine Urine Total Protein Vancomycin Trough Coronavirus (PCR) SARS-CoV-2 IgG Ab 07/18/20 07/19/20 07/19/20 23:58 04:15 05:05 WBC RBC Hgb Hct MCH MCHC RDW Plt Count Lymph % (Auto) Lymph # (Auto) Seg Neutrophils % Seg Neuts % (Manual) Lymphocytes % (Manual) Eosinophils % (Manual) Nucleated RBC % Seg Neutrophils # Seg Neutrophils # Man Lymphocytes # (Manual) Eosinophils # (Manual) PT INR D-Dimer Heparin Anti-Xa Level ABG pH 7.465 H POC ABG pCO2 49.1 H POC ABG pO2 49.4 L ABG pO2 ABG HCO3 ABG O2 Saturation ABG Base Excess ABG Hemoglobin 11.6 L ABG Oxyhemoglobin ABG Sodium 132.3 L ABG Potassium ABG Chloride 97.0 L ABG Glucose 148 H Oxyhemoglobin Carboxyhemoglobin Sodium Potassium Chloride Carbon Dioxide BUN Creatinine Glucose POC Glucose 144 H 117 H Lactic Acid Calcium Ferritin AST ALT Lactate Dehydrogenase C-Reactive Protein Total Protein Albumin Triglycerides Arterial Blood Glucose 148 H Arterial Blood Ionized Calcium Urine Creatinine Urine Total Protein Vancomycin Trough Coronavirus (PCR) SARS-CoV-2 IgG Ab 07/19/20 07/19/20 07/19/20 08:30 08:30 13:21 WBC 17.2 H RBC 3.59 L Hgb Hct MCH MCHC RDW Plt Count Lymph % (Auto) Lymph # (Auto) Seg Neutrophils % Seg Neuts % (Manual) Lymphocytes % (Manual) Eosinophils % (Manual) Nucleated RBC % Seg Neutrophils # Seg Neutrophils # Man Lymphocytes # (Manual) Eosinophils # (Manual) PT INR D-Dimer Heparin Anti-Xa Level ABG pH POC ABG pCO2 POC ABG pO2 ABG pO2 ABG HCO3 ABG O2 Saturation ABG Base Excess ABG Hemoglobin ABG Oxyhemoglobin ABG Sodium ABG Potassium ABG Chloride ABG Glucose Oxyhemoglobin Carboxyhemoglobin Sodium Potassium Chloride 95.7 L Carbon Dioxide 37 H BUN 20 H Creatinine 0.4 L Glucose 125 H POC Glucose 137 H Lactic Acid Calcium 8.1 L Ferritin AST ALT Lactate Dehydrogenase C-Reactive Protein Total Protein Albumin Triglycerides Arterial Blood Glucose Arterial Blood Ionized Calcium Urine Creatinine Urine Total Protein Vancomycin Trough Coronavirus (PCR) SARS-CoV-2 IgG Ab 07/19/20 07/19/20 07/20/20 16:29 17:28 00:25 WBC RBC Hgb Hct MCH MCHC RDW Plt Count Lymph % (Auto) Lymph # (Auto) Seg Neutrophils % Seg Neuts % (Manual) Lymphocytes % (Manual) Eosinophils % (Manual) Nucleated RBC % Seg Neutrophils # Seg Neutrophils # Man Lymphocytes # (Manual) Eosinophils # (Manual) PT INR D-Dimer Heparin Anti-Xa Level ABG pH POC ABG pCO2 53.4 H POC ABG pO2 71.0 L ABG pO2 ABG HCO3 ABG O2 Saturation ABG Base Excess ABG Hemoglobin 11.2 L ABG Oxyhemoglobin 93.6 L ABG Sodium 130.9 L ABG Potassium ABG Chloride 95.0 L ABG Glucose 188 H Oxyhemoglobin Carboxyhemoglobin Sodium Potassium Chloride Carbon Dioxide BUN Creatinine Glucose POC Glucose 174 H 188 H Lactic Acid Calcium Ferritin AST ALT Lactate Dehydrogenase C-Reactive Protein Total Protein Albumin Triglycerides Arterial Blood Glucose 188 H Arterial Blood Ionized Calcium 4.4 L Urine Creatinine Urine Total Protein Vancomycin Trough Coronavirus (PCR) SARS-CoV-2 IgG Ab 07/20/20 07/20/20 07/20/20 04:14 05:23 12:12 WBC RBC Hgb Hct MCH MCHC RDW Plt Count Lymph % (Auto) Lymph # (Auto) Seg Neutrophils % Seg Neuts % (Manual) Lymphocytes % (Manual) Eosinophils % (Manual) Nucleated RBC % Seg Neutrophils # Seg Neutrophils # Man Lymphocytes # (Manual) Eosinophils # (Manual) PT INR D-Dimer Heparin Anti-Xa Level ABG pH POC ABG pCO2 52.7 H POC ABG pO2 59.5 L ABG pO2 ABG HCO3 ABG O2 Saturation ABG Base Excess ABG Hemoglobin 10.6 L ABG Oxyhemoglobin ABG Sodium 134.4 L ABG Potassium ABG Chloride ABG Glucose 176 H Oxyhemoglobin Carboxyhemoglobin Sodium Potassium Chloride Carbon Dioxide BUN Creatinine Glucose POC Glucose 212 H 190 H Lactic Acid Calcium Ferritin AST ALT Lactate Dehydrogenase C-Reactive Protein Total Protein Albumin Triglycerides Arterial Blood Glucose 176 H Arterial Blood Ionized Calcium 4.5 L Urine Creatinine Urine Total Protein Vancomycin Trough Coronavirus (PCR) SARS-CoV-2 IgG Ab 07/20/20 07/21/20 07/21/20 16:59 00:01 04:30 WBC RBC Hgb Hct MCH MCHC RDW Plt Count Lymph % (Auto) Lymph # (Auto) Seg Neutrophils % Seg Neuts % (Manual) Lymphocytes % (Manual) Eosinophils % (Manual) Nucleated RBC % Seg Neutrophils # Seg Neutrophils # Man Lymphocytes # (Manual) Eosinophils # (Manual) PT INR D-Dimer Heparin Anti-Xa Level ABG pH 7.468 H POC ABG pCO2 POC ABG pO2 63.3 L ABG pO2 ABG HCO3 ABG O2 Saturation ABG Base Excess ABG Hemoglobin 11 L ABG Oxyhemoglobin ABG Sodium 135.0 L ABG Potassium ABG Chloride ABG Glucose 204 H Oxyhemoglobin Carboxyhemoglobin Sodium Potassium Chloride Carbon Dioxide BUN Creatinine Glucose POC Glucose 201 H 177 H Lactic Acid Calcium Ferritin AST ALT Lactate Dehydrogenase C-Reactive Protein Total Protein Albumin Triglycerides Arterial Blood Glucose 204 H Arterial Blood Ionized Calcium 4.5 L Urine Creatinine Urine Total Protein Vancomycin Trough Coronavirus (PCR) SARS-CoV-2 IgG Ab 07/21/20 07/21/20 07/21/20 05:26 11:50 17:16 WBC RBC Hgb Hct MCH MCHC RDW Plt Count Lymph % (Auto) Lymph # (Auto) Seg Neutrophils % Seg Neuts % (Manual) Lymphocytes % (Manual) Eosinophils % (Manual) Nucleated RBC % Seg Neutrophils # Seg Neutrophils # Man Lymphocytes # (Manual) Eosinophils # (Manual) PT INR D-Dimer Heparin Anti-Xa Level ABG pH POC ABG pCO2 POC ABG pO2 ABG pO2 ABG HCO3 ABG O2 Saturation ABG Base Excess ABG Hemoglobin ABG Oxyhemoglobin ABG Sodium ABG Potassium ABG Chloride ABG Glucose Oxyhemoglobin Carboxyhemoglobin Sodium Potassium Chloride Carbon Dioxide BUN Creatinine Glucose POC Glucose 175 H 157 H 148 H Lactic Acid Calcium Ferritin AST ALT Lactate Dehydrogenase C-Reactive Protein Total Protein Albumin Triglycerides Arterial Blood Glucose Arterial Blood Ionized Calcium Urine Creatinine Urine Total Protein Vancomycin Trough Coronavirus (PCR) SARS-CoV-2 IgG Ab 07/22/20 07/22/20 07/22/20 00:01 03:26 05:16 WBC RBC Hgb Hct MCH MCHC RDW Plt Count Lymph % (Auto) Lymph # (Auto) Seg Neutrophils % Seg Neuts % (Manual) Lymphocytes % (Manual) Eosinophils % (Manual) Nucleated RBC % Seg Neutrophils # Seg Neutrophils # Man Lymphocytes # (Manual) Eosinophils # (Manual) PT INR D-Dimer Heparin Anti-Xa Level ABG pH POC ABG pCO2 POC ABG pO2 54.2 L ABG pO2 ABG HCO3 ABG O2 Saturation ABG Base Excess ABG Hemoglobin 10.9 L ABG Oxyhemoglobin ABG Sodium 133.7 L ABG Potassium ABG Chloride ABG Glucose 217 H Oxyhemoglobin Carboxyhemoglobin Sodium Potassium Chloride Carbon Dioxide BUN Creatinine Glucose POC Glucose 172 H 182 H Lactic Acid Calcium Ferritin AST ALT Lactate Dehydrogenase C-Reactive Protein Total Protein Albumin Triglycerides Arterial Blood Glucose 217 H Arterial Blood Ionized Calcium 4.5 L Urine Creatinine Urine Total Protein Vancomycin Trough Coronavirus (PCR) SARS-CoV-2 IgG Ab 07/22/20 07/22/20 07/23/20 11:43 17:08 04:00 WBC 11.6 H RBC 3.54 L Hgb Hct MCH MCHC RDW Plt Count Lymph % (Auto) Lymph # (Auto) Seg Neutrophils % Seg Neuts % (Manual) 94.0 H Lymphocytes % (Manual) 5.0 L Eosinophils % (Manual) Nucleated RBC % Seg Neutrophils # Seg Neutrophils # Man 10.9 H Lymphocytes # (Manual) 0.6 L Eosinophils # (Manual) PT INR D-Dimer Heparin Anti-Xa Level ABG pH POC ABG pCO2 POC ABG pO2 ABG pO2 ABG HCO3 ABG O2 Saturation ABG Base Excess ABG Hemoglobin ABG Oxyhemoglobin ABG Sodium ABG Potassium ABG Chloride ABG Glucose Oxyhemoglobin Carboxyhemoglobin Sodium Potassium Chloride Carbon Dioxide BUN Creatinine Glucose POC Glucose 159 H 163 H Lactic Acid Calcium Ferritin AST ALT Lactate Dehydrogenase C-Reactive Protein Total Protein Albumin Triglycerides Arterial Blood Glucose Arterial Blood Ionized Calcium Urine Creatinine Urine Total Protein Vancomycin Trough Coronavirus (PCR) SARS-CoV-2 IgG Ab 07/23/20 07/23/20 07/23/20 04:00 04:53 04:54 WBC RBC Hgb Hct MCH MCHC RDW Plt Count Lymph % (Auto) Lymph # (Auto) Seg Neutrophils % Seg Neuts % (Manual) Lymphocytes % (Manual) Eosinophils % (Manual) Nucleated RBC % Seg Neutrophils # Seg Neutrophils # Man Lymphocytes # (Manual) Eosinophils # (Manual) PT INR D-Dimer Heparin Anti-Xa Level ABG pH 7.453 H POC ABG pCO2 POC ABG pO2 ABG pO2 ABG HCO3 32.4 H ABG O2 Saturation ABG Base Excess 7.5 H ABG Hemoglobin 10.7 L ABG Oxyhemoglobin ABG Sodium ABG Potassium ABG Chloride ABG Glucose Oxyhemoglobin Carboxyhemoglobin Sodium Potassium Chloride Carbon Dioxide 35 H BUN Creatinine 0.4 L Glucose 112 H POC Glucose 169 H Lactic Acid Calcium 8.2 L Ferritin AST ALT Lactate Dehydrogenase C-Reactive Protein Total Protein Albumin Triglycerides Arterial Blood Glucose Arterial Blood Ionized Calcium Urine Creatinine Urine Total Protein Vancomycin Trough Coronavirus (PCR) SARS-CoV-2 IgG Ab 07/23/20 07/23/20 07/23/20 11:50 23:19 Unknown WBC RBC Hgb Hct MCH MCHC RDW Plt Count Lymph % (Auto) Lymph # (Auto) Seg Neutrophils % Seg Neuts % (Manual) Lymphocytes % (Manual) Eosinophils % (Manual) Nucleated RBC % Seg Neutrophils # Seg Neutrophils # Man Lymphocytes # (Manual) Eosinophils # (Manual) PT INR D-Dimer Heparin Anti-Xa Level ABG pH POC ABG pCO2 POC ABG pO2 ABG pO2 ABG HCO3 ABG O2 Saturation ABG Base Excess ABG Hemoglobin ABG Oxyhemoglobin ABG Sodium ABG Potassium ABG Chloride ABG Glucose Oxyhemoglobin Carboxyhemoglobin Sodium Potassium Chloride Carbon Dioxide BUN Creatinine Glucose POC Glucose 118 H 168 H Lactic Acid Calcium Ferritin AST ALT Lactate Dehydrogenase C-Reactive Protein Total Protein Albumin Triglycerides Arterial Blood Glucose Arterial Blood Ionized Calcium Urine Creatinine Urine Total Protein Vancomycin Trough Coronavirus (PCR) Positive A SARS-CoV-2 IgG Ab 07/24/20 07/24/20 07/24/20 04:11 05:37 11:42 WBC RBC Hgb Hct MCH MCHC RDW Plt Count Lymph % (Auto) Lymph # (Auto) Seg Neutrophils % Seg Neuts % (Manual) Lymphocytes % (Manual) Eosinophils % (Manual) Nucleated RBC % Seg Neutrophils # Seg Neutrophils # Man Lymphocytes # (Manual) Eosinophils # (Manual) PT INR D-Dimer Heparin Anti-Xa Level ABG pH POC ABG pCO2 POC ABG pO2 ABG pO2 54.4 L ABG HCO3 34.3 H ABG O2 Saturation 89.0 L ABG Base Excess 8.5 H ABG Hemoglobin 11.0 L ABG Oxyhemoglobin ABG Sodium ABG Potassium ABG Chloride ABG Glucose Oxyhemoglobin 87.0 L Carboxyhemoglobin Sodium Potassium Chloride Carbon Dioxide BUN Creatinine Glucose POC Glucose 115 H 166 H Lactic Acid Calcium Ferritin AST ALT Lactate Dehydrogenase C-Reactive Protein Total Protein Albumin Triglycerides Arterial Blood Glucose Arterial Blood Ionized Calcium Urine Creatinine Urine Total Protein Vancomycin Trough Coronavirus (PCR) SARS-CoV-2 IgG Ab 07/24/20 07/24/20 07/25/20 17:39 23:38 03:53 WBC RBC Hgb Hct MCH MCHC RDW Plt Count Lymph % (Auto) Lymph # (Auto) Seg Neutrophils % Seg Neuts % (Manual) Lymphocytes % (Manual) Eosinophils % (Manual) Nucleated RBC % Seg Neutrophils # Seg Neutrophils # Man Lymphocytes # (Manual) Eosinophils # (Manual) PT INR D-Dimer Heparin Anti-Xa Level ABG pH POC ABG pCO2 POC ABG pO2 ABG pO2 175.9 H ABG HCO3 34.0 H ABG O2 Saturation 99.1 H ABG Base Excess 8.2 H ABG Hemoglobin 10.6 L ABG Oxyhemoglobin ABG Sodium ABG Potassium ABG Chloride ABG Glucose Oxyhemoglobin Carboxyhemoglobin Sodium Potassium Chloride Carbon Dioxide BUN Creatinine Glucose POC Glucose 150 H 139 H Lactic Acid Calcium Ferritin AST ALT Lactate Dehydrogenase C-Reactive Protein Total Protein Albumin Triglycerides Arterial Blood Glucose Arterial Blood Ionized Calcium Urine Creatinine Urine Total Protein Vancomycin Trough Coronavirus (PCR) SARS-CoV-2 IgG Ab 07/25/20 07/25/20 07/25/20 05:47 12:09 23:46 WBC RBC Hgb Hct MCH MCHC RDW Plt Count Lymph % (Auto) Lymph # (Auto) Seg Neutrophils % Seg Neuts % (Manual) Lymphocytes % (Manual) Eosinophils % (Manual) Nucleated RBC % Seg Neutrophils # Seg Neutrophils # Man Lymphocytes # (Manual) Eosinophils # (Manual) PT INR D-Dimer Heparin Anti-Xa Level ABG pH POC ABG pCO2 POC ABG pO2 ABG pO2 ABG HCO3 ABG O2 Saturation ABG Base Excess ABG Hemoglobin ABG Oxyhemoglobin ABG Sodium ABG Potassium ABG Chloride ABG Glucose Oxyhemoglobin Carboxyhemoglobin Sodium Potassium Chloride Carbon Dioxide BUN Creatinine Glucose POC Glucose 144 H 152 H 116 H Lactic Acid Calcium Ferritin AST ALT Lactate Dehydrogenase C-Reactive Protein Total Protein Albumin Triglycerides Arterial Blood Glucose Arterial Blood Ionized Calcium Urine Creatinine Urine Total Protein Vancomycin Trough Coronavirus (PCR) SARS-CoV-2 IgG Ab 07/26/20 07/26/20 07/26/20 03:48 05:36 11:28 WBC RBC Hgb Hct MCH MCHC RDW Plt Count Lymph % (Auto) Lymph # (Auto) Seg Neutrophils % Seg Neuts % (Manual) Lymphocytes % (Manual) Eosinophils % (Manual) Nucleated RBC % Seg Neutrophils # Seg Neutrophils # Man Lymphocytes # (Manual) Eosinophils # (Manual) PT INR D-Dimer Heparin Anti-Xa Level ABG pH POC ABG pCO2 POC ABG pO2 ABG pO2 73.4 L ABG HCO3 35.0 H ABG O2 Saturation ABG Base Excess 8.3 H ABG Hemoglobin 9.8 L ABG Oxyhemoglobin ABG Sodium ABG Potassium ABG Chloride ABG Glucose Oxyhemoglobin 93.7 L Carboxyhemoglobin Sodium Potassium Chloride Carbon Dioxide BUN Creatinine Glucose POC Glucose 136 H 145 H Lactic Acid Calcium Ferritin AST ALT Lactate Dehydrogenase C-Reactive Protein Total Protein Albumin Triglycerides Arterial Blood Glucose Arterial Blood Ionized Calcium Urine Creatinine Urine Total Protein Vancomycin Trough Coronavirus (PCR) SARS-CoV-2 IgG Ab 07/26/20 07/26/20 07/26/20 14:23 17:19 23:33 WBC 12.0 H RBC 3.12 L Hgb 9.5 L Hct 28.6 L MCH MCHC RDW Plt Count Lymph % (Auto) 4.2 L Lymph # (Auto) 0.5 L Seg Neutrophils % 89.8 H Seg Neuts % (Manual) Lymphocytes % (Manual) Eosinophils % (Manual) Nucleated RBC % Seg Neutrophils # 10.8 H Seg Neutrophils # Man Lymphocytes # (Manual) Eosinophils # (Manual) PT INR D-Dimer Heparin Anti-Xa Level ABG pH POC ABG pCO2 POC ABG pO2 ABG pO2 ABG HCO3 ABG O2 Saturation ABG Base Excess ABG Hemoglobin ABG Oxyhemoglobin ABG Sodium ABG Potassium ABG Chloride ABG Glucose Oxyhemoglobin Carboxyhemoglobin Sodium Potassium Chloride Carbon Dioxide BUN Creatinine Glucose POC Glucose 202 H 122 H Lactic Acid Calcium Ferritin AST ALT Lactate Dehydrogenase C-Reactive Protein Total Protein Albumin Triglycerides Arterial Blood Glucose Arterial Blood Ionized Calcium Urine Creatinine Urine Total Protein Vancomycin Trough Coronavirus (PCR) SARS-CoV-2 IgG Ab 07/27/20 07/27/20 07/27/20 04:30 05:54 12:06 WBC RBC Hgb Hct MCH MCHC RDW Plt Count Lymph % (Auto) Lymph # (Auto) Seg Neutrophils % Seg Neuts % (Manual) Lymphocytes % (Manual) Eosinophils % (Manual) Nucleated RBC % Seg Neutrophils # Seg Neutrophils # Man Lymphocytes # (Manual) Eosinophils # (Manual) PT INR D-Dimer Heparin Anti-Xa Level ABG pH POC ABG pCO2 POC ABG pO2 ABG pO2 49.0 L ABG HCO3 35.7 H ABG O2 Saturation 87.6 L ABG Base Excess 10.1 H ABG Hemoglobin 11.5 L ABG Oxyhemoglobin ABG Sodium ABG Potassium ABG Chloride ABG Glucose Oxyhemoglobin 85.4 L Carboxyhemoglobin Sodium Potassium Chloride Carbon Dioxide BUN Creatinine Glucose POC Glucose 164 H 149 H Lactic Acid Calcium Ferritin AST ALT Lactate Dehydrogenase C-Reactive Protein Total Protein Albumin Triglycerides Arterial Blood Glucose Arterial Blood Ionized Calcium Urine Creatinine Urine Total Protein Vancomycin Trough Coronavirus (PCR) SARS-CoV-2 IgG Ab 07/27/20 07/27/20 07/27/20 13:00 14:18 14:18 WBC 12.2 H RBC 3.33 L Hgb 10.0 L Hct MCH MCHC RDW Plt Count Lymph % (Auto) Lymph # (Auto) Seg Neutrophils % Seg Neuts % (Manual) 90.0 H Lymphocytes % (Manual) 7.0 L Eosinophils % (Manual) Nucleated RBC % Seg Neutrophils # Seg Neutrophils # Man 11.0 H Lymphocytes # (Manual) 0.9 L Eosinophils # (Manual) PT INR D-Dimer Heparin Anti-Xa Level ABG pH 7.313 L POC ABG pCO2 POC ABG pO2 ABG pO2 107.5 H ABG HCO3 37.6 H ABG O2 Saturation ABG Base Excess 8.1 H ABG Hemoglobin 10.1 L ABG Oxyhemoglobin ABG Sodium ABG Potassium ABG Chloride ABG Glucose Oxyhemoglobin Carboxyhemoglobin Sodium Potassium Chloride 97.6 L Carbon Dioxide 35 H BUN 18 H Creatinine Glucose 135 H POC Glucose Lactic Acid Calcium 8.3 L Ferritin AST ALT Lactate Dehydrogenase C-Reactive Protein Total Protein Albumin Triglycerides Arterial Blood Glucose Arterial Blood Ionized Calcium Urine Creatinine Urine Total Protein Vancomycin Trough Coronavirus (PCR) SARS-CoV-2 IgG Ab 07/27/20 07/27/20 07/28/20 17:09 23:14 04:15 WBC RBC Hgb Hct MCH MCHC RDW Plt Count Lymph % (Auto) Lymph # (Auto) Seg Neutrophils % Seg Neuts % (Manual) Lymphocytes % (Manual) Eosinophils % (Manual) Nucleated RBC % Seg Neutrophils # Seg Neutrophils # Man Lymphocytes # (Manual) Eosinophils # (Manual) PT INR D-Dimer Heparin Anti-Xa Level ABG pH 7.317 L POC ABG pCO2 POC ABG pO2 ABG pO2 130.3 H ABG HCO3 40.9 H ABG O2 Saturation ABG Base Excess 13.5 H ABG Hemoglobin 5.8 L ABG Oxyhemoglobin ABG Sodium ABG Potassium ABG Chloride ABG Glucose Oxyhemoglobin Carboxyhemoglobin Sodium Potassium Chloride Carbon Dioxide BUN Creatinine Glucose POC Glucose 115 H 139 H Lactic Acid Calcium Ferritin AST ALT Lactate Dehydrogenase C-Reactive Protein Total Protein Albumin Triglycerides Arterial Blood Glucose Arterial Blood Ionized Calcium Urine Creatinine Urine Total Protein Vancomycin Trough Coronavirus (PCR) SARS-CoV-2 IgG Ab 07/28/20 07/28/20 07/28/20 05:34 09:20 09:20 WBC RBC 2.89 L Hgb 9.5 L Hct 26.6 L MCH 33 H MCHC 36 H RDW Plt Count 123 L Lymph % (Auto) Lymph # (Auto) Seg Neutrophils % Seg Neuts % (Manual) 89.0 H Lymphocytes % (Manual) 5.0 L Eosinophils % (Manual) Nucleated RBC % Seg Neutrophils # Seg Neutrophils # Man 8.6 H Lymphocytes # (Manual) 0.5 L Eosinophils # (Manual) PT INR D-Dimer Heparin Anti-Xa Level ABG pH POC ABG pCO2 POC ABG pO2 ABG pO2 ABG HCO3 ABG O2 Saturation ABG Base Excess ABG Hemoglobin ABG Oxyhemoglobin ABG Sodium ABG Potassium ABG Chloride ABG Glucose Oxyhemoglobin Carboxyhemoglobin Sodium 134 L Potassium Chloride 95.6 L Carbon Dioxide 39 H BUN Creatinine 0.3 L Glucose 131 H POC Glucose 130 H Lactic Acid Calcium 7.9 L Ferritin AST ALT Lactate Dehydrogenase C-Reactive Protein Total Protein Albumin Triglycerides Arterial Blood Glucose Arterial Blood Ionized Calcium Urine Creatinine Urine Total Protein Vancomycin Trough Coronavirus (PCR) SARS-CoV-2 IgG Ab 07/28/20 07/28/20 07/28/20 11:50 18:36 23:22 WBC RBC Hgb Hct MCH MCHC RDW Plt Count Lymph % (Auto) Lymph # (Auto) Seg Neutrophils % Seg Neuts % (Manual) Lymphocytes % (Manual) Eosinophils % (Manual) Nucleated RBC % Seg Neutrophils # Seg Neutrophils # Man Lymphocytes # (Manual) Eosinophils # (Manual) PT INR D-Dimer Heparin Anti-Xa Level ABG pH POC ABG pCO2 POC ABG pO2 ABG pO2 ABG HCO3 ABG O2 Saturation ABG Base Excess ABG Hemoglobin ABG Oxyhemoglobin ABG Sodium ABG Potassium ABG Chloride ABG Glucose Oxyhemoglobin Carboxyhemoglobin Sodium Potassium Chloride Carbon Dioxide BUN Creatinine Glucose POC Glucose 128 H 119 H 122 H Lactic Acid Calcium Ferritin AST ALT Lactate Dehydrogenase C-Reactive Protein Total Protein Albumin Triglycerides Arterial Blood Glucose Arterial Blood Ionized Calcium Urine Creatinine Urine Total Protein Vancomycin Trough Coronavirus (PCR) SARS-CoV-2 IgG Ab 07/29/20 07/29/20 07/29/20 03:18 07:54 07:54 WBC 11.1 H RBC 3.49 L Hgb Hct MCH MCHC RDW Plt Count 139 L Lymph % (Auto) Lymph # (Auto) Seg Neutrophils % Seg Neuts % (Manual) 90.0 H Lymphocytes % (Manual) 1.0 L Eosinophils % (Manual) 5.0 H Nucleated RBC % Seg Neutrophils # Seg Neutrophils # Man 10.0 H Lymphocytes # (Manual) 0.1 L Eosinophils # (Manual) 0.6 H PT INR D-Dimer Heparin Anti-Xa Level ABG pH POC ABG pCO2 69.5 H POC ABG pO2 109.3 H ABG pO2 ABG HCO3 ABG O2 Saturation ABG Base Excess ABG Hemoglobin 10.8 L ABG Oxyhemoglobin ABG Sodium ABG Potassium ABG Chloride 95.0 L ABG Glucose 138 H Oxyhemoglobin Carboxyhemoglobin Sodium Potassium Chloride 94.5 L Carbon Dioxide 40 H BUN Creatinine 0.5 L D Glucose 104 H POC Glucose Lactic Acid Calcium Ferritin AST ALT Lactate Dehydrogenase C-Reactive Protein Total Protein Albumin Triglycerides Arterial Blood Glucose 138 H Arterial Blood Ionized Calcium Urine Creatinine Urine Total Protein Vancomycin Trough Coronavirus (PCR) SARS-CoV-2 IgG Ab 07/29/20 07/29/20 07/29/20 11:05 18:17 19:41 WBC RBC Hgb Hct MCH MCHC RDW Plt Count Lymph % (Auto) Lymph # (Auto) Seg Neutrophils % Seg Neuts % (Manual) Lymphocytes % (Manual) Eosinophils % (Manual) Nucleated RBC % Seg Neutrophils # Seg Neutrophils # Man Lymphocytes # (Manual) Eosinophils # (Manual) PT INR D-Dimer Heparin Anti-Xa Level ABG pH 7.305 L POC ABG pCO2 73.3 H 66.7 H POC ABG pO2 28.2 L 32.7 L ABG pO2 ABG HCO3 ABG O2 Saturation ABG Base Excess ABG Hemoglobin 11.8 L 11.5 L ABG Oxyhemoglobin ABG Sodium ABG Potassium ABG Chloride 94.0 L 95.0 L ABG Glucose 207 H 141 H Oxyhemoglobin Carboxyhemoglobin Sodium Potassium Chloride Carbon Dioxide BUN Creatinine Glucose POC Glucose 113 H Lactic Acid Calcium Ferritin AST ALT Lactate Dehydrogenase C-Reactive Protein Total Protein Albumin Triglycerides Arterial Blood Glucose 207 H 141 H Arterial Blood Ionized Calcium 4.5 L Urine Creatinine Urine Total Protein Vancomycin Trough Coronavirus (PCR) SARS-CoV-2 IgG Ab 07/29/20 07/30/20 07/30/20 23:28 04:47 05:28 WBC RBC Hgb Hct MCH MCHC RDW Plt Count Lymph % (Auto) Lymph # (Auto) Seg Neutrophils % Seg Neuts % (Manual) Lymphocytes % (Manual) Eosinophils % (Manual) Nucleated RBC % Seg Neutrophils # Seg Neutrophils # Man Lymphocytes # (Manual) Eosinophils # (Manual) PT INR D-Dimer Heparin Anti-Xa Level ABG pH POC ABG pCO2 55.1 H POC ABG pO2 43.6 L ABG pO2 ABG HCO3 ABG O2 Saturation ABG Base Excess ABG Hemoglobin 11.9 L ABG Oxyhemoglobin ABG Sodium ABG Potassium ABG Chloride 96.0 L ABG Glucose 150 H Oxyhemoglobin Carboxyhemoglobin Sodium Potassium Chloride Carbon Dioxide BUN Creatinine Glucose POC Glucose 121 H 143 H Lactic Acid Calcium Ferritin AST ALT Lactate Dehydrogenase C-Reactive Protein Total Protein Albumin Triglycerides Arterial Blood Glucose 150 H Arterial Blood Ionized Calcium Urine Creatinine Urine Total Protein Vancomycin Trough Coronavirus (PCR) SARS-CoV-2 IgG Ab 07/30/20 07/30/20 07/30/20 08:18 12:00 14:17 WBC RBC Hgb Hct MCH MCHC RDW Plt Count Lymph % (Auto) Lymph # (Auto) Seg Neutrophils % Seg Neuts % (Manual) Lymphocytes % (Manual) Eosinophils % (Manual) Nucleated RBC % Seg Neutrophils # Seg Neutrophils # Man Lymphocytes # (Manual) Eosinophils # (Manual) PT INR D-Dimer Heparin Anti-Xa Level ABG pH POC ABG pCO2 63.3 H 64.6 H POC ABG pO2 47.9 L 41.0 L ABG pO2 ABG HCO3 ABG O2 Saturation ABG Base Excess ABG Hemoglobin 10.5 L 10.2 L ABG Oxyhemoglobin 84.9 L ABG Sodium ABG Potassium ABG Chloride 97.0 L ABG Glucose 170 H 175 H Oxyhemoglobin Carboxyhemoglobin Sodium Potassium Chloride Carbon Dioxide BUN Creatinine Glucose POC Glucose 161 H Lactic Acid Calcium Ferritin AST ALT Lactate Dehydrogenase C-Reactive Protein Total Protein Albumin Triglycerides Arterial Blood Glucose 170 H 175 H Arterial Blood Ionized Calcium 4.4 L 4.4 L Urine Creatinine Urine Total Protein Vancomycin Trough Coronavirus (PCR) SARS-CoV-2 IgG Ab 07/30/20 07/30/20 07/30/20 15:15 15:15 15:15 WBC RBC 2.80 L Hgb 9.1 L Hct 26.0 L D MCH MCHC 35 H RDW Plt Count 101 L Lymph % (Auto) Lymph # (Auto) Seg Neutrophils % Seg Neuts % (Manual) 90.0 H Lymphocytes % (Manual) 7.0 L Eosinophils % (Manual) Nucleated RBC % Seg Neutrophils # Seg Neutrophils # Man Lymphocytes # (Manual) 0.4 L Eosinophils # (Manual) PT INR D-Dimer Heparin Anti-Xa Level ABG pH POC ABG pCO2 POC ABG pO2 ABG pO2 ABG HCO3 ABG O2 Saturation ABG Base Excess ABG Hemoglobin ABG Oxyhemoglobin ABG Sodium ABG Potassium ABG Chloride ABG Glucose Oxyhemoglobin Carboxyhemoglobin Sodium Potassium Chloride 97.1 L Carbon Dioxide 32 H D BUN 39 H Creatinine 1.3 H D Glucose 167 H POC Glucose Lactic Acid Calcium 8.0 L Ferritin AST ALT Lactate Dehydrogenase C-Reactive Protein Total Protein Albumin Triglycerides 837 H Arterial Blood Glucose Arterial Blood Ionized Calcium Urine Creatinine Urine Total Protein Vancomycin Trough Coronavirus (PCR) SARS-CoV-2 IgG Ab 07/30/20 07/30/20 07/30/20 15:15 17:03 17:43 WBC RBC Hgb Hct MCH MCHC RDW Plt Count Lymph % (Auto) Lymph # (Auto) Seg Neutrophils % Seg Neuts % (Manual) Lymphocytes % (Manual) Eosinophils % (Manual) Nucleated RBC % Seg Neutrophils # Seg Neutrophils # Man Lymphocytes # (Manual) Eosinophils # (Manual) PT INR D-Dimer Heparin Anti-Xa Level ABG pH POC ABG pCO2 POC ABG pO2 ABG pO2 ABG HCO3 ABG O2 Saturation ABG Base Excess ABG Hemoglobin ABG Oxyhemoglobin ABG Sodium ABG Potassium ABG Chloride ABG Glucose Oxyhemoglobin Carboxyhemoglobin Sodium Potassium Chloride Carbon Dioxide BUN Creatinine Glucose POC Glucose 171 H Lactic Acid 2.20 H* 3.60 H* Calcium Ferritin AST ALT Lactate Dehydrogenase C-Reactive Protein Total Protein Albumin Triglycerides Arterial Blood Glucose Arterial Blood Ionized Calcium Urine Creatinine Urine Total Protein Vancomycin Trough Coronavirus (PCR) SARS-CoV-2 IgG Ab 07/30/20 07/30/20 07/31/20 20:13 23:37 04:15 WBC RBC Hgb Hct MCH MCHC RDW Plt Count Lymph % (Auto) Lymph # (Auto) Seg Neutrophils % Seg Neuts % (Manual) Lymphocytes % (Manual) Eosinophils % (Manual) Nucleated RBC % Seg Neutrophils # Seg Neutrophils # Man Lymphocytes # (Manual) Eosinophils # (Manual) PT INR D-Dimer Heparin Anti-Xa Level ABG pH 7.544 H 7.489 H POC ABG pCO2 POC ABG pO2 44.4 L 50.0 L ABG pO2 ABG HCO3 ABG O2 Saturation ABG Base Excess ABG Hemoglobin 10.4 L ABG Oxyhemoglobin ABG Sodium 135.3 L ABG Potassium ABG Chloride ABG Glucose 201 H 199 H Oxyhemoglobin Carboxyhemoglobin Sodium Potassium Chloride Carbon Dioxide BUN Creatinine Glucose POC Glucose 160 H Lactic Acid Calcium Ferritin AST ALT Lactate Dehydrogenase C-Reactive Protein Total Protein Albumin Triglycerides Arterial Blood Glucose 201 H 199 H Arterial Blood Ionized Calcium 4.2 L 4.4 L Urine Creatinine Urine Total Protein Vancomycin Trough Coronavirus (PCR) SARS-CoV-2 IgG Ab 07/31/20 07/31/20 07/31/20 05:16 05:16 05:28 WBC RBC 3.03 L Hgb 9.2 L Hct 27.6 L MCH MCHC RDW Plt Count 118 L Lymph % (Auto) 6.3 L Lymph # (Auto) 0.5 L Seg Neutrophils % Seg Neuts % (Manual) Lymphocytes % (Manual) Eosinophils % (Manual) Nucleated RBC % Seg Neutrophils # Seg Neutrophils # Man Lymphocytes # (Manual) Eosinophils # (Manual) PT INR D-Dimer Heparin Anti-Xa Level ABG pH POC ABG pCO2 POC ABG pO2 ABG pO2 ABG HCO3 ABG O2 Saturation ABG Base Excess ABG Hemoglobin ABG Oxyhemoglobin ABG Sodium ABG Potassium ABG Chloride ABG Glucose Oxyhemoglobin Carboxyhemoglobin Sodium Potassium Chloride Carbon Dioxide BUN 57 H Creatinine 1.7 H Glucose 208 H POC Glucose 182 H Lactic Acid Calcium 8.3 L Ferritin AST 613 H ALT 760 H Lactate Dehydrogenase C-Reactive Protein Total Protein 5.6 L Albumin 2.2 L Triglycerides Arterial Blood Glucose Arterial Blood Ionized Calcium Urine Creatinine Urine Total Protein Vancomycin Trough Coronavirus (PCR) SARS-CoV-2 IgG Ab 07/31/20 07/31/20 07/31/20 11:02 14:14 14:14 WBC RBC Hgb Hct MCH MCHC RDW Plt Count Lymph % (Auto) Lymph # (Auto) Seg Neutrophils % Seg Neuts % (Manual) Lymphocytes % (Manual) Eosinophils % (Manual) Nucleated RBC % Seg Neutrophils # Seg Neutrophils # Man Lymphocytes # (Manual) Eosinophils # (Manual) PT INR D-Dimer 2522.40 H Heparin Anti-Xa Level ABG pH POC ABG pCO2 POC ABG pO2 ABG pO2 ABG HCO3 ABG O2 Saturation ABG Base Excess ABG Hemoglobin ABG Oxyhemoglobin ABG Sodium ABG Potassium ABG Chloride ABG Glucose Oxyhemoglobin Carboxyhemoglobin Sodium Potassium Chloride Carbon Dioxide BUN Creatinine Glucose POC Glucose 200 H Lactic Acid Calcium Ferritin 964.8 H AST ALT Lactate Dehydrogenase C-Reactive Protein Total Protein Albumin Triglycerides Arterial Blood Glucose Arterial Blood Ionized Calcium Urine Creatinine Urine Total Protein Vancomycin Trough Coronavirus (PCR) SARS-CoV-2 IgG Ab 07/31/20 07/31/20 07/31/20 14:14 14:14 16:00 WBC RBC Hgb Hct MCH MCHC RDW Plt Count Lymph % (Auto) Lymph # (Auto) Seg Neutrophils % Seg Neuts % (Manual) Lymphocytes % (Manual) Eosinophils % (Manual) Nucleated RBC % Seg Neutrophils # Seg Neutrophils # Man Lymphocytes # (Manual) Eosinophils # (Manual) PT INR D-Dimer Heparin Anti-Xa Level ABG pH POC ABG pCO2 POC ABG pO2 ABG pO2 ABG HCO3 ABG O2 Saturation ABG Base Excess ABG Hemoglobin ABG Oxyhemoglobin ABG Sodium ABG Potassium ABG Chloride ABG Glucose Oxyhemoglobin Carboxyhemoglobin Sodium Potassium Chloride Carbon Dioxide BUN Creatinine Glucose POC Glucose Lactic Acid Calcium Ferritin AST ALT Lactate Dehydrogenase 585 H C-Reactive Protein 49.00 H Total Protein Albumin Triglycerides Arterial Blood Glucose Arterial Blood Ionized Calcium Urine Creatinine 89.2 H Urine Total Protein 108 H Vancomycin Trough 28.2 H Coronavirus (PCR) SARS-CoV-2 IgG Ab 07/31/20 07/31/20 08/01/20 17:22 21:26 00:07 WBC RBC Hgb Hct MCH MCHC RDW Plt Count Lymph % (Auto) Lymph # (Auto) Seg Neutrophils % Seg Neuts % (Manual) Lymphocytes % (Manual) Eosinophils % (Manual) Nucleated RBC % Seg Neutrophils # Seg Neutrophils # Man Lymphocytes # (Manual) Eosinophils # (Manual) PT INR D-Dimer Heparin Anti-Xa Level ABG pH POC ABG pCO2 POC ABG pO2 156.0 H ABG pO2 ABG HCO3 ABG O2 Saturation ABG Base Excess ABG Hemoglobin 9.6 L ABG Oxyhemoglobin 98.4 H ABG Sodium 135.9 L ABG Potassium ABG Chloride ABG Glucose 290 H Oxyhemoglobin Carboxyhemoglobin 0.4 L Sodium Potassium Chloride Carbon Dioxide BUN Creatinine Glucose POC Glucose 229 H 255 H Lactic Acid Calcium Ferritin AST ALT Lactate Dehydrogenase C-Reactive Protein Total Protein Albumin Triglycerides Arterial Blood Glucose 290 H Arterial Blood Ionized Calcium 4.5 L Urine Creatinine Urine Total Protein Vancomycin Trough Coronavirus (PCR) SARS-CoV-2 IgG Ab 08/01/20 08/01/20 08/01/20 04:46 05:30 05:30 WBC RBC 2.27 L Hgb 7.6 L Hct 20.9 L D MCH 34 H MCHC 37 H RDW Plt Count 85 L Lymph % (Auto) Lymph # (Auto) Seg Neutrophils % Seg Neuts % (Manual) 87.0 H Lymphocytes % (Manual) 2.0 L Eosinophils % (Manual) Nucleated RBC % 1.0 H Seg Neutrophils # Seg Neutrophils # Man Lymphocytes # (Manual) 0.1 L Eosinophils # (Manual) PT INR D-Dimer Heparin Anti-Xa Level ABG pH 7.462 H POC ABG pCO2 POC ABG pO2 70.2 L ABG pO2 ABG HCO3 ABG O2 Saturation ABG Base Excess ABG Hemoglobin 8.7 L ABG Oxyhemoglobin ABG Sodium 135.7 L ABG Potassium 3.3 L ABG Chloride ABG Glucose 275 H Oxyhemoglobin Carboxyhemoglobin Sodium 132 L D Potassium 2.8 L* D Chloride Carbon Dioxide BUN 47 H Creatinine Glucose 217 H POC Glucose Lactic Acid Calcium 6.6 L D Ferritin AST 117 H ALT 408 H Lactate Dehydrogenase C-Reactive Protein Total Protein 4.3 L D Albumin 0.6 L Triglycerides 2335 H Arterial Blood Glucose 275 H Arterial Blood Ionized Calcium 4.5 L Urine Creatinine Urine Total Protein Vancomycin Trough Coronavirus (PCR) SARS-CoV-2 IgG Ab 08/01/20 08/01/20 08/01/20 05:34 09:33 11:50 WBC RBC Hgb Hct MCH MCHC RDW Plt Count Lymph % (Auto) Lymph # (Auto) Seg Neutrophils % Seg Neuts % (Manual) Lymphocytes % (Manual) Eosinophils % (Manual) Nucleated RBC % Seg Neutrophils # Seg Neutrophils # Man Lymphocytes # (Manual) Eosinophils # (Manual) PT INR D-Dimer Heparin Anti-Xa Level ABG pH POC ABG pCO2 POC ABG pO2 ABG pO2 ABG HCO3 ABG O2 Saturation ABG Base Excess ABG Hemoglobin ABG Oxyhemoglobin ABG Sodium ABG Potassium ABG Chloride ABG Glucose Oxyhemoglobin Carboxyhemoglobin Sodium Potassium Chloride Carbon Dioxide BUN 57 H Creatinine Glucose 250 H POC Glucose 246 H 239 H Lactic Acid Calcium 8.2 L D Ferritin AST ALT Lactate Dehydrogenase C-Reactive Protein Total Protein Albumin Triglycerides 759 H Arterial Blood Glucose Arterial Blood Ionized Calcium Urine Creatinine Urine Total Protein Vancomycin Trough Coronavirus (PCR) SARS-CoV-2 IgG Ab 08/01/20 08/01/20 08/02/20 17:14 23:21 04:22 WBC RBC Hgb Hct MCH MCHC RDW Plt Count Lymph % (Auto) Lymph # (Auto) Seg Neutrophils % Seg Neuts % (Manual) Lymphocytes % (Manual) Eosinophils % (Manual) Nucleated RBC % Seg Neutrophils # Seg Neutrophils # Man Lymphocytes # (Manual) Eosinophils # (Manual) PT INR D-Dimer Heparin Anti-Xa Level ABG pH 7.268 L POC ABG pCO2 56.6 H POC ABG pO2 ABG pO2 ABG HCO3 ABG O2 Saturation ABG Base Excess ABG Hemoglobin 8.4 L ABG Oxyhemoglobin ABG Sodium ABG Potassium 4.9 H ABG Chloride ABG Glucose 261 H Oxyhemoglobin Carboxyhemoglobin Sodium Potassium Chloride Carbon Dioxide BUN Creatinine Glucose POC Glucose 219 H 242 H Lactic Acid Calcium Ferritin AST ALT Lactate Dehydrogenase C-Reactive Protein Total Protein Albumin Triglycerides Arterial Blood Glucose 261 H Arterial Blood Ionized Calcium Urine Creatinine Urine Total Protein Vancomycin Trough Coronavirus (PCR) SARS-CoV-2 IgG Ab 08/02/20 08/02/20 08/02/20 05:05 06:37 06:37 WBC RBC 3.40 L Hgb 10.0 L Hct MCH MCHC RDW 16.2 H Plt Count 87 L Lymph % (Auto) Lymph # (Auto) Seg Neutrophils % Seg Neuts % (Manual) 82.0 H Lymphocytes % (Manual) 3.0 L Eosinophils % (Manual) Nucleated RBC % 2.0 H Seg Neutrophils # Seg Neutrophils # Man 9.0 H Lymphocytes # (Manual) 0.3 L Eosinophils # (Manual) PT INR D-Dimer Heparin Anti-Xa Level ABG pH POC ABG pCO2 POC ABG pO2 ABG pO2 ABG HCO3 ABG O2 Saturation ABG Base Excess ABG Hemoglobin ABG Oxyhemoglobin ABG Sodium ABG Potassium ABG Chloride ABG Glucose Oxyhemoglobin Carboxyhemoglobin Sodium Potassium 5.3 H D Chloride Carbon Dioxide BUN 53 H Creatinine Glucose 267 H POC Glucose 254 H Lactic Acid Calcium 8.1 L Ferritin AST 43 H ALT 334 H Lactate Dehydrogenase C-Reactive Protein Total Protein 5.4 L D Albumin 1.9 L Triglycerides Arterial Blood Glucose Arterial Blood Ionized Calcium Urine Creatinine Urine Total Protein Vancomycin Trough Coronavirus (PCR) SARS-CoV-2 IgG Ab 08/02/20 08/02/20 08/02/20 06:37 11:34 17:04 WBC RBC Hgb Hct MCH MCHC RDW Plt Count Lymph % (Auto) Lymph # (Auto) Seg Neutrophils % Seg Neuts % (Manual) Lymphocytes % (Manual) Eosinophils % (Manual) Nucleated RBC % Seg Neutrophils # Seg Neutrophils # Man Lymphocytes # (Manual) Eosinophils # (Manual) PT INR D-Dimer Heparin Anti-Xa Level ABG pH POC ABG pCO2 POC ABG pO2 ABG pO2 ABG HCO3 ABG O2 Saturation ABG Base Excess ABG Hemoglobin ABG Oxyhemoglobin ABG Sodium ABG Potassium ABG Chloride ABG Glucose Oxyhemoglobin Carboxyhemoglobin Sodium Potassium Chloride Carbon Dioxide BUN Creatinine Glucose POC Glucose 279 H 256 H Lactic Acid Calcium Ferritin AST ALT Lactate Dehydrogenase C-Reactive Protein Total Protein Albumin Triglycerides 717 H Arterial Blood Glucose Arterial Blood Ionized Calcium Urine Creatinine Urine Total Protein Vancomycin Trough Coronavirus (PCR) SARS-CoV-2 IgG Ab 08/02/20 08/03/20 08/03/20 23:23 01:25 04:49 WBC 13.2 H RBC 2.83 L Hgb 8.4 L Hct 26.3 L MCH MCHC RDW 16.4 H Plt Count Lymph % (Auto) Lymph # (Auto) Seg Neutrophils % Seg Neuts % (Manual) Lymphocytes % (Manual) 2.0 L Eosinophils % (Manual) Nucleated RBC % 1.0 H Seg Neutrophils # Seg Neutrophils # Man 7.8 H Lymphocytes # (Manual) 0.3 L Eosinophils # (Manual) PT INR D-Dimer Heparin Anti-Xa Level ABG pH 7.302 L POC ABG pCO2 56.0 H POC ABG pO2 39.6 L ABG pO2 ABG HCO3 ABG O2 Saturation ABG Base Excess ABG Hemoglobin 9.1 L ABG Oxyhemoglobin ABG Sodium ABG Potassium 4.8 H ABG Chloride 108.0 H ABG Glucose 275 H Oxyhemoglobin Carboxyhemoglobin Sodium Potassium Chloride Carbon Dioxide BUN Creatinine Glucose POC Glucose 214 H Lactic Acid Calcium Ferritin AST ALT Lactate Dehydrogenase C-Reactive Protein Total Protein Albumin Triglycerides Arterial Blood Glucose 275 H Arterial Blood Ionized Calcium Urine Creatinine Urine Total Protein Vancomycin Trough Coronavirus (PCR) SARS-CoV-2 IgG Ab 08/03/20 08/03/20 08/03/20 04:49 04:49 05:11 WBC RBC Hgb Hct MCH MCHC RDW Plt Count Lymph % (Auto) Lymph # (Auto) Seg Neutrophils % Seg Neuts % (Manual) Lymphocytes % (Manual) Eosinophils % (Manual) Nucleated RBC % Seg Neutrophils # Seg Neutrophils # Man Lymphocytes # (Manual) Eosinophils # (Manual) PT INR D-Dimer Heparin Anti-Xa Level ABG pH POC ABG pCO2 POC ABG pO2 ABG pO2 ABG HCO3 ABG O2 Saturation ABG Base Excess ABG Hemoglobin ABG Oxyhemoglobin ABG Sodium ABG Potassium ABG Chloride ABG Glucose Oxyhemoglobin Carboxyhemoglobin Sodium Potassium Chloride Carbon Dioxide BUN 39 H Creatinine Glucose 263 H POC Glucose 230 H Lactic Acid Calcium 8.1 L Ferritin AST ALT 242 H Lactate Dehydrogenase C-Reactive Protein Total Protein 5.4 L Albumin 2.2 L Triglycerides 500 H Arterial Blood Glucose Arterial Blood Ionized Calcium Urine Creatinine Urine Total Protein Vancomycin Trough Coronavirus (PCR) SARS-CoV-2 IgG Ab 08/03/20 08/03/20 08/03/20 11:55 17:07 23:25 WBC RBC Hgb Hct MCH MCHC RDW Plt Count Lymph % (Auto) Lymph # (Auto) Seg Neutrophils % Seg Neuts % (Manual) Lymphocytes % (Manual) Eosinophils % (Manual) Nucleated RBC % Seg Neutrophils # Seg Neutrophils # Man Lymphocytes # (Manual) Eosinophils # (Manual) PT INR D-Dimer Heparin Anti-Xa Level ABG pH POC ABG pCO2 POC ABG pO2 ABG pO2 ABG HCO3 ABG O2 Saturation ABG Base Excess ABG Hemoglobin ABG Oxyhemoglobin ABG Sodium ABG Potassium ABG Chloride ABG Glucose Oxyhemoglobin Carboxyhemoglobin Sodium Potassium Chloride Carbon Dioxide BUN Creatinine Glucose POC Glucose 238 H 205 H 211 H Lactic Acid Calcium Ferritin AST ALT Lactate Dehydrogenase C-Reactive Protein Total Protein Albumin Triglycerides Arterial Blood Glucose Arterial Blood Ionized Calcium Urine Creatinine Urine Total Protein Vancomycin Trough Coronavirus (PCR) SARS-CoV-2 IgG Ab 08/04/20 08/04/20 08/04/20 03:16 05:31 12:07 WBC RBC Hgb Hct MCH MCHC RDW Plt Count Lymph % (Auto) Lymph # (Auto) Seg Neutrophils % Seg Neuts % (Manual) Lymphocytes % (Manual) Eosinophils % (Manual) Nucleated RBC % Seg Neutrophils # Seg Neutrophils # Man Lymphocytes # (Manual) Eosinophils # (Manual) PT INR D-Dimer Heparin Anti-Xa Level ABG pH 7.154 L POC ABG pCO2 80.7 H POC ABG pO2 ABG pO2 ABG HCO3 ABG O2 Saturation ABG Base Excess ABG Hemoglobin 8.5 L ABG Oxyhemoglobin ABG Sodium ABG Potassium 5.1 H ABG Chloride 109.0 H ABG Glucose 226 H Oxyhemoglobin Carboxyhemoglobin Sodium Potassium Chloride Carbon Dioxide BUN Creatinine Glucose POC Glucose 201 H 213 H Lactic Acid Calcium Ferritin AST ALT Lactate Dehydrogenase C-Reactive Protein Total Protein Albumin Triglycerides Arterial Blood Glucose 226 H Arterial Blood Ionized Calcium Urine Creatinine Urine Total Protein Vancomycin Trough Coronavirus (PCR) SARS-CoV-2 IgG Ab 08/04/20 08/04/20 08/04/20 17:39 23:17 Unknown WBC RBC 2.38 L Hgb 7.1 L Hct 22.4 L MCH MCHC RDW 16.5 H Plt Count Lymph % (Auto) Lymph # (Auto) Seg Neutrophils % Seg Neuts % (Manual) Lymphocytes % (Manual) 1.0 L Eosinophils % (Manual) Nucleated RBC % Seg Neutrophils # Seg Neutrophils # Man Lymphocytes # (Manual) 0.1 L Eosinophils # (Manual) PT INR D-Dimer Heparin Anti-Xa Level ABG pH POC ABG pCO2 POC ABG pO2 ABG pO2 ABG HCO3 ABG O2 Saturation ABG Base Excess ABG Hemoglobin ABG Oxyhemoglobin ABG Sodium ABG Potassium ABG Chloride ABG Glucose Oxyhemoglobin Carboxyhemoglobin Sodium Potassium Chloride Carbon Dioxide BUN Creatinine Glucose POC Glucose 155 H 107 H Lactic Acid Calcium Ferritin AST ALT Lactate Dehydrogenase C-Reactive Protein Total Protein Albumin Triglycerides Arterial Blood Glucose Arterial Blood Ionized Calcium Urine Creatinine Urine Total Protein Vancomycin Trough Coronavirus (PCR) SARS-CoV-2 IgG Ab 08/04/20 08/05/20 08/05/20 Unknown 05:14 05:50 WBC RBC Hgb Hct MCH MCHC RDW Plt Count Lymph % (Auto) Lymph # (Auto) Seg Neutrophils % Seg Neuts % (Manual) Lymphocytes % (Manual) Eosinophils % (Manual) Nucleated RBC % Seg Neutrophils # Seg Neutrophils # Man Lymphocytes # (Manual) Eosinophils # (Manual) PT INR D-Dimer Heparin Anti-Xa Level ABG pH POC ABG pCO2 51.7 H POC ABG pO2 63.3 L ABG pO2 ABG HCO3 ABG O2 Saturation ABG Base Excess ABG Hemoglobin 9.9 L ABG Oxyhemoglobin ABG Sodium 146.9 H ABG Potassium ABG Chloride 113.0 H ABG Glucose 112 H Oxyhemoglobin Carboxyhemoglobin Sodium Potassium Chloride 113.1 H Carbon Dioxide BUN 27 H Creatinine 0.5 L Glucose 190 H POC Glucose 126 H Lactic Acid Calcium 7.5 L Ferritin AST ALT 134 H Lactate Dehydrogenase C-Reactive Protein Total Protein 4.7 L Albumin 2.2 L Triglycerides Arterial Blood Glucose 112 H Arterial Blood Ionized Calcium Urine Creatinine Urine Total Protein Vancomycin Trough Coronavirus (PCR) SARS-CoV-2 IgG Ab 08/05/20 08/05/20 08/05/20 08:30 08:30 11:19 WBC 16.5 H RBC 2.79 L Hgb 8.3 L Hct 26.1 L MCH MCHC RDW 16.7 H Plt Count Lymph % (Auto) Lymph # (Auto) Seg Neutrophils % Seg Neuts % (Manual) Lymphocytes % (Manual) 6.0 L Eosinophils % (Manual) Nucleated RBC % Seg Neutrophils # Seg Neutrophils # Man 10.1 H Lymphocytes # (Manual) 1.0 L Eosinophils # (Manual) PT INR D-Dimer Heparin Anti-Xa Level ABG pH POC ABG pCO2 POC ABG pO2 ABG pO2 ABG HCO3 ABG O2 Saturation ABG Base Excess ABG Hemoglobin ABG Oxyhemoglobin ABG Sodium ABG Potassium ABG Chloride ABG Glucose Oxyhemoglobin Carboxyhemoglobin Sodium 149 H Potassium Chloride 112.9 H Carbon Dioxide 32 H D BUN 25 H Creatinine Glucose 184 H POC Glucose 185 H Lactic Acid Calcium Ferritin AST ALT 115 H Lactate Dehydrogenase C-Reactive Protein Total Protein 5.5 L Albumin 2.3 L Triglycerides Arterial Blood Glucose Arterial Blood Ionized Calcium Urine Creatinine Urine Total Protein Vancomycin Trough Coronavirus (PCR) SARS-CoV-2 IgG Ab 08/05/20 08/05/20 08/05/20 13:35 13:35 13:35 WBC RBC Hgb 7.7 L Hct 24.6 L MCH MCHC RDW Plt Count Lymph % (Auto) Lymph # (Auto) Seg Neutrophils % Seg Neuts % (Manual) Lymphocytes % (Manual) Eosinophils % (Manual) Nucleated RBC % Seg Neutrophils # Seg Neutrophils # Man Lymphocytes # (Manual) Eosinophils # (Manual) PT 15.4 H INR 1.22 H D-Dimer 4748.32 H Heparin Anti-Xa Level ABG pH POC ABG pCO2 POC ABG pO2 ABG pO2 ABG HCO3 ABG O2 Saturation ABG Base Excess ABG Hemoglobin ABG Oxyhemoglobin ABG Sodium ABG Potassium ABG Chloride ABG Glucose Oxyhemoglobin Carboxyhemoglobin Sodium Potassium Chloride Carbon Dioxide BUN Creatinine Glucose POC Glucose Lactic Acid Calcium Ferritin AST ALT Lactate Dehydrogenase C-Reactive Protein 26.40 H Total Protein Albumin Triglycerides 337 H Arterial Blood Glucose Arterial Blood Ionized Calcium Urine Creatinine Urine Total Protein Vancomycin Trough Coronavirus (PCR) SARS-CoV-2 IgG Ab 08/05/20 08/05/20 08/05/20 16:56 20:07 23:29 WBC RBC Hgb Hct MCH MCHC RDW Plt Count Lymph % (Auto) Lymph # (Auto) Seg Neutrophils % Seg Neuts % (Manual) Lymphocytes % (Manual) Eosinophils % (Manual) Nucleated RBC % Seg Neutrophils # Seg Neutrophils # Man Lymphocytes # (Manual) Eosinophils # (Manual) PT INR D-Dimer Heparin Anti-Xa Level ABG pH POC ABG pCO2 POC ABG pO2 ABG pO2 ABG HCO3 ABG O2 Saturation ABG Base Excess ABG Hemoglobin ABG Oxyhemoglobin ABG Sodium ABG Potassium ABG Chloride ABG Glucose Oxyhemoglobin Carboxyhemoglobin Sodium Potassium Chloride Carbon Dioxide BUN Creatinine Glucose POC Glucose 120 H 156 H Lactic Acid Calcium Ferritin AST ALT Lactate Dehydrogenase C-Reactive Protein Total Protein Albumin Triglycerides Arterial Blood Glucose Arterial Blood Ionized Calcium Urine Creatinine Urine Total Protein Vancomycin Trough 27.0 H Coronavirus (PCR) SARS-CoV-2 IgG Ab 08/06/20 08/06/20 08/06/20 04:00 04:00 05:32 WBC 12.6 H RBC 2.40 L Hgb 7.2 L Hct 22.4 L MCH MCHC RDW 16.9 H Plt Count Lymph % (Auto) Lymph # (Auto) Seg Neutrophils % Seg Neuts % (Manual) 86.0 H Lymphocytes % (Manual) 5.0 L Eosinophils % (Manual) Nucleated RBC % Seg Neutrophils # Seg Neutrophils # Man 10.8 H Lymphocytes # (Manual) 0.6 L Eosinophils # (Manual) PT INR D-Dimer Heparin Anti-Xa Level ABG pH POC ABG pCO2 POC ABG pO2 ABG pO2 ABG HCO3 ABG O2 Saturation ABG Base Excess ABG Hemoglobin ABG Oxyhemoglobin ABG Sodium ABG Potassium ABG Chloride ABG Glucose Oxyhemoglobin Carboxyhemoglobin Sodium 147 H Potassium Chloride 112.5 H Carbon Dioxide BUN 27 H Creatinine Glucose 193 H POC Glucose 155 H Lactic Acid Calcium 8.3 L Ferritin AST ALT 77 H Lactate Dehydrogenase C-Reactive Protein Total Protein 5.0 L Albumin 2.2 L Triglycerides Arterial Blood Glucose Arterial Blood Ionized Calcium Urine Creatinine Urine Total Protein Vancomycin Trough Coronavirus (PCR) SARS-CoV-2 IgG Ab 08/06/20 08/06/20 08/06/20 09:31 11:55 17:44 WBC RBC Hgb Hct MCH MCHC RDW Plt Count Lymph % (Auto) Lymph # (Auto) Seg Neutrophils % Seg Neuts % (Manual) Lymphocytes % (Manual) Eosinophils % (Manual) Nucleated RBC % Seg Neutrophils # Seg Neutrophils # Man Lymphocytes # (Manual) Eosinophils # (Manual) PT INR D-Dimer Heparin Anti-Xa Level ABG pH POC ABG pCO2 POC ABG pO2 ABG pO2 ABG HCO3 ABG O2 Saturation ABG Base Excess ABG Hemoglobin ABG Oxyhemoglobin ABG Sodium ABG Potassium ABG Chloride ABG Glucose Oxyhemoglobin Carboxyhemoglobin Sodium Potassium Chloride Carbon Dioxide BUN Creatinine Glucose POC Glucose 140 H 151 H 132 H Lactic Acid Calcium Ferritin AST ALT Lactate Dehydrogenase C-Reactive Protein Total Protein Albumin Triglycerides Arterial Blood Glucose Arterial Blood Ionized Calcium Urine Creatinine Urine Total Protein Vancomycin Trough Coronavirus (PCR) SARS-CoV-2 IgG Ab 08/06/20 08/06/20 08/06/20 21:11 23:21 Unknown WBC RBC Hgb Hct MCH MCHC RDW Plt Count Lymph % (Auto) Lymph # (Auto) Seg Neutrophils % Seg Neuts % (Manual) Lymphocytes % (Manual) Eosinophils % (Manual) Nucleated RBC % Seg Neutrophils # Seg Neutrophils # Man Lymphocytes # (Manual) Eosinophils # (Manual) PT INR D-Dimer Heparin Anti-Xa Level ABG pH POC ABG pCO2 49.3 H 50.5 H POC ABG pO2 62.1 L 70.5 L ABG pO2 ABG HCO3 ABG O2 Saturation ABG Base Excess ABG Hemoglobin 8.6 L 8.3 L ABG Oxyhemoglobin 90.2 L ABG Sodium ABG Potassium ABG Chloride 111.0 H 113.0 H ABG Glucose 171 H 204 H Oxyhemoglobin Carboxyhemoglobin 1.7 H Sodium Potassium Chloride Carbon Dioxide BUN Creatinine Glucose POC Glucose 160 H Lactic Acid Calcium Ferritin AST ALT Lactate Dehydrogenase C-Reactive Protein Total Protein Albumin Triglycerides Arterial Blood Glucose 171 H 204 H Arterial Blood Ionized Calcium Urine Creatinine Urine Total Protein Vancomycin Trough Coronavirus (PCR) SARS-CoV-2 IgG Ab 08/07/20 08/07/20 08/07/20 02:06 02:06 04:00 WBC 18.0 H RBC 2.91 L Hgb 8.5 L Hct 27.2 L MCH MCHC RDW 17.7 H Plt Count Lymph % (Auto) 5.3 L Lymph # (Auto) 1.0 L Seg Neutrophils % Seg Neuts % (Manual) Lymphocytes % (Manual) Eosinophils % (Manual) Nucleated RBC % Seg Neutrophils # 16.6 H Seg Neutrophils # Man Lymphocytes # (Manual) Eosinophils # (Manual) PT INR D-Dimer Heparin Anti-Xa Level ABG pH POC ABG pCO2 POC ABG pO2 ABG pO2 111.4 H ABG HCO3 27.6 H ABG O2 Saturation ABG Base Excess ABG Hemoglobin 8.5 L ABG Oxyhemoglobin ABG Sodium ABG Potassium ABG Chloride ABG Glucose Oxyhemoglobin Carboxyhemoglobin Sodium 146 H Potassium Chloride 110.9 H Carbon Dioxide BUN 27 H Creatinine 0.5 L Glucose 187 H POC Glucose Lactic Acid Calcium Ferritin AST ALT Lactate Dehydrogenase C-Reactive Protein Total Protein Albumin Triglycerides Arterial Blood Glucose Arterial Blood Ionized Calcium Urine Creatinine Urine Total Protein Vancomycin Trough Coronavirus (PCR) SARS-CoV-2 IgG Ab 08/07/20 08/07/20 08/07/20 05:28 11:15 12:09 WBC RBC Hgb Hct MCH MCHC RDW Plt Count Lymph % (Auto) Lymph # (Auto) Seg Neutrophils % Seg Neuts % (Manual) Lymphocytes % (Manual) Eosinophils % (Manual) Nucleated RBC % Seg Neutrophils # Seg Neutrophils # Man Lymphocytes # (Manual) Eosinophils # (Manual) PT INR D-Dimer Heparin Anti-Xa Level 0.15 L ABG pH POC ABG pCO2 POC ABG pO2 ABG pO2 ABG HCO3 ABG O2 Saturation ABG Base Excess ABG Hemoglobin ABG Oxyhemoglobin ABG Sodium ABG Potassium ABG Chloride ABG Glucose Oxyhemoglobin Carboxyhemoglobin Sodium Potassium Chloride Carbon Dioxide BUN Creatinine Glucose POC Glucose 161 H 191 H Lactic Acid Calcium Ferritin AST ALT Lactate Dehydrogenase C-Reactive Protein Total Protein Albumin Triglycerides Arterial Blood Glucose Arterial Blood Ionized Calcium Urine Creatinine Urine Total Protein Vancomycin Trough Coronavirus (PCR) SARS-CoV-2 IgG Ab 08/07/20 08/07/20 08/07/20 18:25 22:31 23:39 WBC RBC Hgb Hct MCH MCHC RDW Plt Count Lymph % (Auto) Lymph # (Auto) Seg Neutrophils % Seg Neuts % (Manual) Lymphocytes % (Manual) Eosinophils % (Manual) Nucleated RBC % Seg Neutrophils # Seg Neutrophils # Man Lymphocytes # (Manual) Eosinophils # (Manual) PT INR D-Dimer Heparin Anti-Xa Level 0.25 L ABG pH POC ABG pCO2 POC ABG pO2 ABG pO2 ABG HCO3 ABG O2 Saturation ABG Base Excess ABG Hemoglobin ABG Oxyhemoglobin ABG Sodium ABG Potassium ABG Chloride ABG Glucose Oxyhemoglobin Carboxyhemoglobin Sodium Potassium Chloride Carbon Dioxide BUN Creatinine Glucose POC Glucose 195 H 220 H Lactic Acid Calcium Ferritin AST ALT Lactate Dehydrogenase C-Reactive Protein Total Protein Albumin Triglycerides Arterial Blood Glucose Arterial Blood Ionized Calcium Urine Creatinine Urine Total Protein Vancomycin Trough Coronavirus (PCR) SARS-CoV-2 IgG Ab 08/08/20 08/08/20 05:54 11:56 WBC RBC Hgb Hct MCH MCHC RDW Plt Count Lymph % (Auto) Lymph # (Auto) Seg Neutrophils % Seg Neuts % (Manual) Lymphocytes % (Manual) Eosinophils % (Manual) Nucleated RBC % Seg Neutrophils # Seg Neutrophils # Man Lymphocytes # (Manual) Eosinophils # (Manual) PT INR D-Dimer Heparin Anti-Xa Level ABG pH POC ABG pCO2 POC ABG pO2 ABG pO2 ABG HCO3 ABG O2 Saturation ABG Base Excess ABG Hemoglobin ABG Oxyhemoglobin ABG Sodium ABG Potassium ABG Chloride ABG Glucose Oxyhemoglobin Carboxyhemoglobin Sodium Potassium Chloride Carbon Dioxide BUN Creatinine Glucose POC Glucose 232 H 155 H Lactic Acid Calcium Ferritin AST ALT Lactate Dehydrogenase C-Reactive Protein Total Protein Albumin Triglycerides Arterial Blood Glucose Arterial Blood Ionized Calcium Urine Creatinine Urine Total Protein Vancomycin Trough Coronavirus (PCR) SARS-CoV-2 IgG Ab Allied health notes reviewed: nursing
[2020-08-09] MEDS: INSULIN REGULAR, HUMAN 100 UNIT/ML 3ML VIAL SUB-Q SCH ×4 (00:26→18:22)
[2020-08-09] MEDS: METOCLOPRAMIDE 10 MG/2 ML INJ IV SCH ×4 (00:40→18:17)
[2020-08-09] MEDS: PROPOFOL 500 MG/50 ML VIAL IV SCH ×4 (02:20→18:59)
[2020-08-09] MEDS: fentaNYL DRIP Premix 2,000 MCG/100 ML BAG IV SCH ×4 (02:31→20:24)
[2020-08-09] MEDS: chlordiazePOXIDE 25 MG CAP PO SCH ×3 (05:27→22:29)
[2020-08-09] MEDS: GABAPENTIN 300 MG CAP PO SCH ×3 (05:27→22:28)
--- NOTE | 2020-08-09 06:57 | XRay Report ---
CHEST 1 VIEW INDICATION / CLINICAL INFORMATION: PTX, vent. COMPARISON: Chest radiograph one day prior FINDINGS: SUPPORT DEVICES: The endotracheal tube is stable in position, again appears to have prominence of the balloon. Stable position of enteric tube, bilateral chest tubes, and left-sided PICC. HEART / MEDIASTINUM: Stable. LUNGS / PLEURA: Extensive bilateral airspace opacities have worsened from the prior examination. Prob able tiny residual right pneumothorax. ADDITIONAL FINDINGS: No significant change of subcutaneous emphysema in the chest wall and lower neck . Moderate gastric distention. IMPRESSION: 1. Interval worsening of extensive bilateral airspace opacities. Additional findings as above unchang ed. Signer Name: Christina Ramos MD Signed: 08/09/2020 6:52 AM Workstation Name: [id number]
[2020-08-09] MEDS: MIDAZOLAM 100 MG in SODIUM CHLORIDE 0.9% 80 ML IV SCH (09:01)
--- NOTE | 2020-08-09 09:32 | Progress Note ---
Assessment and Plan Assessment and plan: -Severe COVID-19 PNA -On vent. Sedated -Completed steroids and remdesivir -ID following -- Acute hypoxic respiratory failure Mechanically ventilated Continue antibiotics for MRSA sputum. --- Ventilator associated pneumonia from MRSA and E. coli Continue cefepime and vancomycin ID following ---Sinus tachycardia Possible PE. D-dimer >4k Started on full dose anticoagulation Plan to do Cta chest when stable Monitor hemoglobin --Pneumothorax and subcutaneous emphysema Chest x-ray today shows improvement in pneumothorax and bilateral opacities. Continue chest tube management as per negative checker Surgery recommendations appreciated -- GERD (gastroesophageal reflux disease) cont Pantoprazole --SLE (systemic lupus erythematosus related syndrome) Continue home medications-hydroxychloroquine -- DVT prophylaxis Heparin drip for possible PE. -- Full code status brief History: 50-year-old female with a past medical history of asthma, hypertension, and lupus complains of generalized body weakness, fever and shortness of breath. Patient states the symptoms started right after she was discharged from [facility] on 07/05. She has associated wheezing, fever, cough and she has been using her inhalers with no significant effect. She also has associated diarrhea. Of note, she was hospitalized here in [facility] on 06/28 for asthma exacerbation and had a negative Covid test during the admission. She was treated and discharged. She presented to [facility] for further evaluation after discharge from here and over there, she was found to have positive COVID-19 test and she was placed on steroids and subsequently discharged on Eliquis prophylaxis for DVT. She states that she did not receive remdesivir during the admission. She was discharged from [facility] on 07/05. She went home and felt worse. She said that she passed out about 2 times. Due to persistent symptoms, she called EMS who brought her to [facility] for further evaluation. Daily course: 07/07. Patient seen and examined at bedside this morning. Patient is wheezing and slightly short of breath. Change steroids to Solu-Medrol 60 every 6. Added formoterol and budesonide. ID evaluation pending. Started patient on remdesivir as she is short of breath. 07/07: Placed on BIPAP this AM. Will need pulm evaluation. Solumedrol 60mg q6. STAT blood gas ordered. She will be transferred to [facility]. 07/08: Patient took oxygen off and attempts to go to the bathroom and subsequently became hypoxemic with sats down into the low 80s. Patient became weak short of breath. After that time patient had persistent coughing and cannot maintain sats until nonrebreather was placed. Patient is transferred to the ICU unit and monitored for respiratory failure possibly requiring intubation. 07/09: ID recommended for convalescent plasma, ordered. Patient intubated overnight. Continue to monitor clinically, scheduled lab, follow inflammatory markers 07/10: Wait for convalescent plasma transfusion, wean off from ventilator as tolerated 07/11: Called patient's daughter and updated. Continue to wean off vent as tolerated, continue tube feeding, monitor vital sign CBC BMP daily. 07/12: remains intubated and sedated. follow inflammatory markers - wean off vent as tolerated 07/13: wean off vent as tolerated, cxr in the am. reviewed vitals 07/14: remains intubated, has not received convalescent plasma yet. Reviewed vitals, tolerating tube feeding. Wean off vent per critical care as tolerated. 07/15: cont to provide supportive care, wean off vent as tolerated - difficult to wean off. 07/16: CXR findings improving, cont to wean off vent 07/17: Follow inflammatory markers, monitor off antibiotics. Wean off vent per pulmonary as tolerated 07/18: Wean off vent per pulmonary as tolerated,Follow inflammatory markers, monitor off antibiotics. 07/19: Wean off vent per pulmonary as tolerated,Follow inflammatory markers, monitor off antibiotics. SBT trial 07/20: Wean off vent as tolerated, continue supportive care, follow inflammatory markers 07/21: continue supportive care, follow inflammatory markers, wean off vent as tolerated 07/22: Continue to wean off from ventilator as tolerated per pulmonary recommendation, follow inflammatory markers. Repeat CBC BMP in the morning. We will repeat Covid test tomorrow to see if patient cleared the infection. 07/23. Continue to wean off from ventilator as tolerated per pulmonary recommendation, follow inflammatory markers. Currently AC mode, rate 16, tidal volume 450 with FiO2 75%vand PEEP 14 07/24/2020. Continue ventilatory support with AC mode, rate 16, tidal volume 450, FiO2 100% and PEEP of 16. Continue Brovana and Pulmicort. Continue IV steroids 40 mg IV every 8 hours. Anticoagulation with Lovenox 30 mg twice daily. Patient currently sedated with Versed and fentanyl. 07/25/2020. Continue ventilatory support with AC mode, rate 16, tidal volume 450, FiO2 75% and PEEP of 16. Continue Brovana and Pulmicort. Continue IV steroids 40 mg IV every 8 hours. Anticoagulation with Lovenox 30 mg twice daily. Patient currently sedated with Versed and fentanyl. Continue to wean per pulmonary recommendations. 07/26/2020. Continue ventilatory support with AC mode, rate 16, tidal volume 450, FiO2 85% and PEEP of 16. Continue Brovana and Pulmicort. Continue IV steroids 40 mg IV every 8 hours. Anticoagulation with Lovenox 30 mg twice daily. Patient currently sedated with Versed and fentanyl. Continue to wean per protocol. 07/27/2020. Continue ventilatory support with AC mode, rate 16, tidal volume 450, FiO2 100% and PEEP of 16. Patient with increased oxygen requirements the past couple of days. Continue Brovana and Pulmicort. Continue IV steroids 40 mg IV every 8 hours. Anticoagulation with Lovenox 30 mg twice daily. Patient currently sedated with Versed and fentanyl. Dose of Lasix given by pulmonary yesterday to achieve negative fluid balance. Follow-up serial chest x-ray 07/28/2020. Continue ventilatory support with AC mode, rate 16, tidal volume 450, FiO2 100% and PEEP of 16. Wean FiO2 per protocol. Continue Brovana and Pulmicort. Continue IV steroids 40 mg IV every 8 hours. Anticoagulation with Lovenox 30 mg twice daily. Patient currently sedated with Versed and fentanyl. 07/29/2020. Continue ventilatory support with AC mode, rate 16, tidal volume 450, FiO2 100% and PEEP of 16. Wean FiO2 per protocol. Continue Brovana and Pulmicort. Continue IV steroids 40 mg IV every 8 hours. Anticoagulation with Lovenox 30 mg twice daily. Wean sedation as tolerated. 07/30. Continue ventilatory support with AC mode, rate 16, tidal volume 450, FiO2 100% and PEEP of 16. Wean FiO2 per protocol. Continue Brovana and Pulmicort. Continue IV steroids 40 mg IV every 8 hours. Anticoagulation with Lovenox 30 mg twice daily. Wean sedation as tolerated. 07/31. Still ventilated. On sedatives. Renal function worse today. nephrology has been consulted. Started patient on IV hydration. BC - GN rods and staph aureus. She is on vancomycin. 08/01. Still ventilated. On sedatives. Renal function worse today. nephrology has been consulted. Started patient on IV hydration. BC - GN rods and staph aureus. She is on vancomycin. 08/02. Chest xray shows worsening pneumothorax. Chest tube in place. On vent and sedated 08/03. Continue ventilatory support with AC mode, rate 30, tidal volume 4000, FiO2 100% and PEEP of 16. Wean FiO2 per protocol. Continue Brovana and Pulmicort. Anticoagulation with Lovenox 30 mg twice daily. Wean sedation as tolerated. 08/04. Now has a left chest tube in place due to worsening pneumothorax. She also has subcutaneous emphysema. ID on board - on IV antibiotics-cefepime and vancomycin. ID following. 08/05. Patient is more tachycardic today with heart rate in 130s overnight. Chest x-ray shows improvement in pneumothoraces and bilateral opacities. Patient likely has a PE. Patient has been started on full anticoagulation. Still maintained on IV antibiotics. Continue ventilatory support. 08/06/2020; patient's Covid positive, pneumothorax on chest tube. Patient is likely has PE and started on heparin drip. Patient is intubated and sedated and pulmonary is following. 08/07/2020; patient's Covid positive, pneumothorax on chest tube. Patient is likely has PE and started on heparin drip. Patient is intubated and sedated and pulmonary is following. 08/08/2020; patient's Covid positive, pneumothorax on chest tube. Patient is likely has PE and started on heparin drip. Patient is intubated and sedated and pulmonary is following. 08/09/2020; patient is Covid positive, pneumothorax and on chest tubes. Patient likely has PE and on heparin drip. Patient is intubated and sedated. Pulmonary critical care is following the patient. The high probability of a clinically significant, sudden or life threatening deterioration of the [[employer], respiratory, BONDING MOLDER] system(s) required my full and direct attention, intervention and personal management. The aggregate critical care time was [32] minutes. This time is in addition to time spent performing reported procedures but includes the following: [x] Data Review and interpretation [x] Patient assessment and monitoring of vital signs [x] Documentation [x] Medication orders and management History Interval history: Patient was seen and evaluated this morning patient is intubated and on mechanical ventilation Hospitalist Physical - Physical exam Narrative exam: Patient is intubated and on mechanical ventilation, FiO2 60%, sedated The patient appeared well nourished and normally developed. Vital signs as documented. Head exam is unremarkable. No scleral icterus . Neck is without jugular venous distension, thyromegaly, or carotid bruits. Lungs are clear to auscultation. Cardiac exam reveals regular rate and Rhythm. Abdominal exam reveals normal bowel sounds, nontender, no organomegaly. Extremities are nonedematous and both femoral and pedal pulses are normal. BONDING MOLDER: Sedated - Constitutional Vitals: Temp Pulse Resp BP Pulse Ox 100.4 F H 122 H 13 157/79 99 08/09/20 03:55 08/09/20 09:15 08/09/20 09:15 08/09/20 09:15 08/09/20 09:15 General appearance: Present: no acute distress, well-nourished Results - Labs CBC & Chem 7: 08/07/20 02:06 08/07/20 02:06 Labs: Laboratory Last Values WBC 18.0 K/mm3 (4.5-11.0) H 08/07/20 02:06 RBC 2.91 M/mm3 (3.65-5.03) L 08/07/20 02:06 Hgb 8.5 gm/dl (10.1-14.3) L 08/07/20 02:06 Hct 27.2 % (30.3-42.9) L 08/07/20 02:06 MCV 93 fl (79-97) 08/07/20 02:06 MCH 29 pg (28-32) 08/07/20 02:06 MCHC 31 % (30-34) 08/07/20 02:06 RDW 17.7 % (13.2-15.2) H 08/07/20 02:06 Plt Count 270 K/mm3 (140-440) 08/07/20 02:06 Lymph % (Auto) 5.3 % (13.4-35.0) L 08/07/20 02:06 [place] % (Auto) 1.8 % (0.0-7.3) 08/07/20 02:06 Eos % (Auto) 0.3 % (0.0-4.3) 08/07/20 02:06 Baso % (Auto) 0.5 % (0.0-1.8) 08/07/20 02:06 Lymph # (Auto) 1.0 K/mm3 (1.2-5.4) L 08/07/20 02:06 [place] # (Auto) 0.3 K/mm3 (0.0-0.8) 08/07/20 02:06 Eos # (Auto) 0.1 K/mm3 (0.0-0.4) 08/07/20 02:06 Baso # (Auto) 0.1 K/mm3 (0.0-0.1) 08/07/20 02:06 Add Manual Diff Complete 08/06/20 04:00 Total Counted 100 08/06/20 04:00 Seg Neutrophils % Super[employer]ure 08/07/20 02:06 Seg Neuts % (Manual) 86.0 % (40.0-70.0) H 08/06/20 04:00 Band Neutrophils % 4.0 % 08/06/20 04:00 Lymphocytes % (Manual) 5.0 % (13.4-35.0) L 08/06/20 04:00 Reactive Lymphs % (Man) 0 % 08/06/20 04:00 Monocytes % (Manual) 2.0 % (0.0-7.3) 08/06/20 04:00 Eosinophils % (Manual) 0 % (0.0-4.3) 08/06/20 04:00 Basophils % (Manual) 0 % (0.0-1.8) 08/06/20 04:00 Metamyelocytes % 3.0 % 08/06/20 04:00 Myelocytes % 0 % 08/06/20 04:00 Promyelocytes % 0 % 08/06/20 04:00 Blast Cells % 0 % 08/06/20 04:00 Nucleated RBC % Not Reportable 08/06/20 04:00 Seg Neutrophils # 16.6 K/mm3 (1.8-7.7) H 08/07/20 02:06 Seg Neutrophils # Man 10.8 K/mm3 (1.8-7.7) H 08/06/20 04:00 Band Neutrophils # 0.5 K/mm3 08/06/20 04:00 Lymphocytes # (Manual) 0.6 K/mm3 (1.2-5.4) L 08/06/20 04:00 Abs React Lymphs (Man) 0.0 K/mm3 08/06/20 04:00 Monocytes # (Manual) 0.3 K/mm3 (0.0-0.8) 08/06/20 04:00 Eosinophils # (Manual) 0.0 K/mm3 (0.0-0.4) 08/06/20 04:00 Basophils # (Manual) 0.0 K/mm3 (0.0-0.1) 08/06/20 04:00 Metamyelocytes # 0.4 K/mm3 08/06/20 04:00 Myelocytes # 0.0 K/mm3 08/06/20 04:00 Promyelocytes # 0.0 K/mm3 08/06/20 04:00 Blast Cells # 0.0 K/mm3 08/06/20 04:00 Pathologist Review 08/03/20 04:49 WBC Morphology Not Reportable 08/06/20 04:00 Hypersegmented Neuts Not Reportable 08/06/20 04:00 Hyposegmented Neuts Not Reportable 08/06/20 04:00 Hypogranular Neuts Not Reportable 08/06/20 04:00 Smudge Cells Not Reportable 08/06/20 04:00 Toxic Granulation Not Reportable 08/06/20 04:00 Toxic Vacuolation Not Reportable 08/06/20 04:00 Dohle Bodies Not Reportable 08/06/20 04:00 Pelger-Huet Anomaly Not Reportable 08/06/20 04:00 Savanna Rods Not Reportable 08/06/20 04:00 Platelet Estimate Consistent w auto 08/06/20 04:00 Clumped Platelets Not Reportable 08/06/20 04:00 Plt Clumps, EDTA Not Reportable 08/06/20 04:00 Large Platelets Not Reportable 08/06/20 04:00 Giant Platelets Not Reportable 08/06/20 04:00 Platelet Satelliting Not Reportable 08/06/20 04:00 Plt Morphology Comment Not Reportable 08/06/20 04:00 RBC Morphology Not Reportable 08/06/20 04:00 Dimorphic RBCs Not Reportable 08/06/20 04:00 Polychromasia Few 08/06/20 04:00 Hypochromasia 1+ 08/06/20 04:00 Poikilocytosis Not Reportable 08/06/20 04:00 Anisocytosis Few 08/06/20 04:00 Microcytosis Not Reportable 08/06/20 04:00 Macrocytosis Not Reportable 08/06/20 04:00 Spherocytes Not Reportable 08/06/20 04:00 Pappenheimer Bodies Not Reportable 08/06/20 04:00 Sickle Cells Not Reportable 08/06/20 04:00 Target Cells Not Reportable 08/06/20 04:00 Tear Drop Cells Not Reportable 08/06/20 04:00 Ovalocytes Not Reportable 08/06/20 04:00 Helmet Cells Not Reportable 08/06/20 04:00 Raza-[place] Bodies Not Reportable 08/06/20 04:00 [place] Rings Not Reportable 08/06/20 04:00 [place] Cells Not Reportable 08/06/20 04:00 Bite Cells Not Reportable 08/06/20 04:00 Crenated Cell Not Reportable 08/06/20 04:00 Elliptocytes Not Reportable 08/06/20 04:00 Acanthocytes (Spur) Not Reportable 08/06/20 04:00 Rouleaux Not Reportable 08/06/20 04:00 Hemoglobin C Crystals Not Reportable 08/06/20 04:00 Schistocytes Rare 08/06/20 04:00 Malaria parasites Not Reportable 08/06/20 04:00 Junaid Bodies Not Reportable 08/06/20 04:00 Hem Pathologist Commnt No 08/06/20 04:00 PT 15.4 Sec. (12.2-14.9) H 08/05/20 13:35 INR 1.22 (0.87-1.13) H 08/05/20 13:35 APTT 30.5 Sec. (24.2-36.6) 08/05/20 13:35 D-Dimer 4748.32 ng/mlDDU (0-234) H 08/05/20 13:35 Heparin Anti-Xa Level 0.39 U.I./ml (0.3-0.7) 08/08/20 Unknown ABG pH 7.369 (7.320-7.450) 08/09/20 05:38 POC ABG pCO2 52.0 mmHg (32.0-48.0) H 08/09/20 05:38 ABG pCO2 47.9 mm Hg 08/07/20 04:00 POC ABG pO2 54.1 mmHg (83-108) L 08/09/20 05:38 ABG pO2 111.4 mm Hg (80.0-90.0) H 08/07/20 04:00 POC ABG HCO3 29.3 08/09/20 05:38 ABG HCO3 27.6 mmol/L (20.0-26.0) H 08/07/20 04:00 ABG O2 Saturation 97.9 % (95.0-99.0) 08/07/20 04:00 ABG O2 Content 11.6 (0.0-44) 08/07/20 04:00 POC ABG Base Excess 3.3 08/09/20 05:38 ABG Base Excess 2.1 mmol/L (-2.0-3.0) 08/07/20 04:00 ABG Hemoglobin 10.2 (12.0-17.5) L 08/09/20 05:38 ABG Oxyhemoglobin 90.2 (94-98) L 08/06/20 21:11 ABG Carboxyhemoglobin 2.1 % (0.0-5.0) 08/07/20 04:00 ABG Methemoglobin 0.6 % (0.0-1.5) 08/07/20 04:00 ABG Sodium 142.9 mmol/L (136.0-145.0) 08/09/20 05:38 ABG Potassium 4.0 mmol/L (3.40-4.50) 08/09/20 05:38 ABG Chloride 108.0 mmol/L (98-107) H 08/09/20 05:38 ABG Glucose 124 mg/dL (65-95) H 08/09/20 05:38 Oxyhemoglobin 95.3 % (95.0-99.0) 08/07/20 04:00 Carboxyhemoglobin 1.7 (0.5-1.5) H 08/06/20 21:11 FiO2 60 08/09/20 05:38 Sodium 146 mmol/L (137-145) H 08/07/20 02:06 Potassium 4.1 mmol/L (3.6-5.0) 08/07/20 02:06 Chloride 110.9 mmol/L (98-107) H 08/07/20 02:06 Carbon Dioxide 23 mmol/L (22-30) 08/07/20 02:06 Anion Gap 16 mmol/L 08/07/20 02:06 BUN 27 mg/dL (7-17) H 08/07/20 02:06 Creatinine 0.5 mg/dL (0.6-1.2) L 08/07/20 02:06 Estimated GFR > 60 ml/min 08/07/20 02:06 BUN/Creatinine Ratio 54 % 08/07/20 02:06 Glucose 187 mg/dL (65-100) H 08/07/20 02:06 POC Glucose 130 mg/dL (70-105) H 08/09/20 05:38 Lactic Acid 1.80 mmol/L (0.7-2.0) 07/31/20 14:14 Calcium 8.6 mg/dL (8.4-10.2) 08/07/20 02:06 Phosphorus 3.20 mg/dL (2.5-4.5) 07/08/20 16:13 Magnesium 2.20 mg/dL (1.7-2.3) 07/08/20 16:13 Ferritin 964.8 ng/mL (10.0-200.0) H 07/31/20 14:14 Total Bilirubin 0.20 mg/dL (0.1-1.2) 08/06/20 04:00 AST 15 units/L (5-40) 08/06/20 04:00 ALT 77 units/L (7-56) H 08/06/20 04:00 Alkaline Phosphatase 70 units/L (35-129) 08/06/20 04:00 Lactate Dehydrogenase 585 units/L (91-180) H 07/31/20 14:14 C-Reactive Protein 26.40 mg/dL (0.00-1.30) H 08/05/20 13:35 Total Protein 5.0 g/dL (6.3-8.2) L 08/06/20 04:00 Albumin 2.2 g/dL (3.9-5) L 08/06/20 04:00 Albumin/Globulin Ratio 0.8 % 08/06/20 04:00 Triglycerides 337 mg/dL (2-149) H 08/05/20 13:35 Procalcitonin 1.39 ng/mL (<0.15) 08/05/20 13:35 Arterial Blood Glucose 124 mg/dL (65-95) H 08/09/20 05:38 Arterial Blood Ionized Calcium 4.7 mg/dL (4.6-5.3) 08/09/20 05:38 Urine Color Yellow (Yellow) 07/11/20 09:30 Urine Turbidity Clear (Clear) 07/11/20 09:30 Urine pH 5.0 (5.0-7.0) 07/11/20 09:30 Ur Specific Boring 1.028 (1.003-1.030) 07/11/20 09:30 Urine Protein <15 mg/dl mg/dL (Negative) 07/11/20 09:30 Urine Glucose (UA) Neg mg/dL (Negative) 07/11/20 09:30 Urine Ketones Neg mg/dL (Negative) 07/11/20 09:30 Urine Blood Neg (Negative) 07/11/20 09:30 Urine Nitrite Neg (Negative) 07/11/20 09:30 Urine Bilirubin Neg (Negative) 07/11/20 09:30 Urine Urobilinogen 2.0 mg/dL (<2.0) 07/11/20 09:30 Ur Leukocyte Esterase Neg (Negative) 07/11/20 09:30 Urine WBC (Auto) 1.0 /HPF (0.0-6.0) 07/11/20 09:30 Urine RBC (Auto) 1.0 /HPF (0.0-6.0) 07/11/20 09:30 U Epithel Cells (Auto) 1.0 /HPF (0-13.0) 07/11/20 09:30 Urine Mucus Few /HPF 07/11/20 09:30 Urine Creatinine 89.2 mg/dL (0.1-20.0) H 07/31/20 16:00 Urine Sodium 26 mmol/L 07/31/20 16:00 Urine Total Protein 108 mg/dL (5-11.8) H 07/31/20 16:00 Vancomycin Trough 27.0 ug/mL (5.0-20.0) H 08/05/20 20:07 Random Vancomycin 7.9 ug/mL (0-40.0) 08/02/20 06:37 Coronavirus (PCR) Positive (Negative) A 07/23/20 Unknown SARS-CoV-2 IgG Ab Reactive (NonReactive) A 07/15/20 14:30 Blood Type O POSITIVE 07/09/20 15:30 Antibody Screen Negative 07/09/20 15:30 Microbiology: Microbiology 08/06/20 23:46 Peripheral/Venous Blood Culture - Preliminary NO GROWTH AFTER 48 HOURS 08/06/20 22:57 Peripheral/Venous Blood Culture - Preliminary NO GROWTH AFTER 48 HOURS - Diagnostic Impressions Diagnostic Impressions: Echocardiogram 07/19/20 13:13 Transthoracic Echocardiogram Indication: CHF BP: 106/58 Conclusions *The left ventricular systolic function is within normal limits. There are no wall motion abnormalities observed. *The estimated ejection fraction is 60-65%. *Normal left ventricular diastolic filling is observed. Findings Procedure Info: The study quality is fair. Left Ventricle: The left ventricular chamber size, wall thickness and systolic function are within normal limits. There are no wall motion abnormalities observed. Ejection fraction is normal. The estimated ejection fraction is 60-65%. Normal left ventricular diastolic filling is observed. Left Atrium: The left atrium is normal in size with no visual thrombus identified. Right Ventricle: The right ventricular chamber size and systolic function are within normal limits. Right Atrium: The right atrium appears normal. Aortic Valve: The aortic valve is trileaflet. The leaflets are thin with normal excursion. There is no aortic stenosis or regurgitation present. Mitral Valve: The mitral valve leaflets are mildly thickened. There is trace of mitral regurgitation. There is no evidence of mitral stenosis. Tricuspid Valve: The tricuspid valve leaflets are normal. There is trace tricuspid regurgitation. The right ventricular systolic pressure is calculated at 14 mmHg. There is no tricuspid stenosis. Pulmonic Valve: The pulmonic valve appears normal. There is mild pulmonic regurgitation. There is no pulmonic stenosis. Pericardium: The pericardium appears normal. Aorta: The aorta appears normal. Pulmonary Artery: The main pulmonary artery appears normal. Venous: The inferior vena cava appears normal in size. There is a greater than 50% respiratory change in the inferior vena cava dimension. Measurements Chambers 2D Name Value Normal Range IVSd (2D) 1.08 cm (0.6 - 1.1) LVPWd (2D) 0.91 cm (0.6 - 1.1) LVIDd (2D) 4.61 cm (3.7 - 5.6) LVIDs (2D) 3.12 cm (2 - 3.8) LV FS (2D) 32.38 % - EF Teichholz (2D) 60.72 % - Ao root diameter (2D) 3.01 cm (2 - 3.7) Volumes/Mass Name Value Normal Range LA ESV SP 4CH (A/L) 57.18 ml - LA ESV SP 2CH (A/L) 62.63 ml - LA ESV BP (A/L) 60.68 ml - LA ESV BP (A/L) index 28.22 ml/m2 - LA ESV SP 4CH (MOD) 51.17 ml - LA ESV SP 2CH (MOD) 57.8 ml - LA ESV BP (MOD) 54.73 ml - LA ESV BP (MOD) index 25.45 ml/m2 - LV EDV SP 4CH (MOD) 115.34 ml - LV ESV SP 4CH (MOD) 43.26 ml - EF SP 4CH (MOD) 62.5 % - LV EDV SP 2CH (MOD) 43.71 ml - LV ESV SP 2CH (MOD) 17.14 ml - EF SP 2CH (MOD) 60.79 % - LV EDV BP 73.15 ml - LV ESV BP 27.92 ml - BP EF (MOD) 61.83 % - Diastolic/Systolic Function Name Value Normal Range MV E-wave Vmax 0.88 m/sec - MV deceleration time 157.66 msec - MV A-wave Vmax 0.91 m/sec - MV E:A ratio 0.96 ratio - Aortic Valve Name Value Normal Range AV Vmax 1.54 m/sec - AV VTI 31.46 cm - AV peak gradient 9.51 mmHg - AV mean gradient 5.1 mmHg - LVOT diameter 1.95 cm - LVOT Vmax 1.21 m/sec - LVOT VTI 27.59 cm - LVOT peak gradient 5.83 mmHg - LVOT mean gradient 3.3 mmHg - SV LVOT 82.76 ml - SMITH (continuity Vmax) 2.35 cm2 - SMITH (continuity VTI) 2.63 cm2 - Ascending Ao 2.94 cm - Tricuspid Valve Name Value Normal Range TV E-wave Vmax 0.49 m/sec - TR Vmax 1.72 m/sec - TR peak gradient 11.86 mmHg - RAP 3 mmHg - RVSP 14 mmHg - IVC diameter 1.91 cm (1.2 - 2.3) Pulmonic Valve/Qp:Qs Name Value Normal Range PV Vmax 0.94 m/sec - PV peak gradient 3.54 mmHg - ME end-diastolic Vmax 0.54 m/sec - RVOT Vmax 0.68 m/sec - RVOT VTI 13.18 cm - RVOT peak gradient 1.82 mmHg - PV acceleration time 117.98 msec - Tejada/IV: Voiding Method Indwelling Catheter IV Catheter Type [Left Upper PICC Line arm] IV Catheter Type [Right INT / Saline Lock Forearm] IV Catheter Type [Left Wrist] INT / Saline Lock IV Catheter Type [Left Hand] Peripheral IV Active Medications - Current Medications Current Medications: Generic Name Dose Route Start Last Admin Trade Name Freq PRN Reason Stop Dose Admin Acetaminophen 650 mg 07/06/20 13:39 07/27/20 18:34 Tylenol PO 650 mg Q4H PRN Administration Pain MILD(1-3)/Fever >100.5/WILLETT Albuterol/Ipratropium 1 ampul 08/05/20 11:33 Duoneb *Not For Prn Use* IH TIDRT PRN Overdose Alprazolam 0.5 mg 07/07/20 12:28 07/27/20 03:15 Xanax PO 0.5 mg Q8H PRN Administration Anxiety Lipase/Protease/Amylase 1 each 07/08/20 14:50 Pancremaria del rosario Price 10,500 Unit FEEDTUBE PRN PRN For Clogged Feeding Tube Arformoterol Tartrate 15 mcg 07/07/20 09:15 08/08/20 20:47 Brovana Nebu IH 15 mcg Q12HRT ROMMEL Administration Ascorbic Acid 500 mg 07/08/20 22:00 08/08/20 21:11 Vitamin C PO 500 mg BID ROMMEL Administration Aspirin 81 mg 07/06/20 14:00 08/08/20 09:09 Baby Aspirin PO 81 mg QDAY ROMMEL Administration Budesonide 0.5 mg 07/07/20 09:15 08/08/20 20:47 Pulmicort IH 0.5 mg Q12HRT ROMMEL Administration Chlordiazepoxide HCl 75 mg 07/30/20 13:00 08/09/20 05:27 Librium PO 75 mg Q8H ROMMEL Administration Dextrose 50 ml 07/12/20 16:58 D50w (25gm) Syringe IV Q30MIN PRN Hypoglycemia Protocol Docusate Sodium 100 mg 07/16/20 22:00 08/08/20 21:08 Colace PO 100 mg BID ROMMEL Administration Fentanyl 50 mcg 07/08/20 13:16 07/29/20 15:45 Sublimaze IV 50 mcg Q10MIN PRN Administration ANALGESIA Fentanyl 50 mcg 08/08/20 15:24 Fentanyl 100 Mcg/2 Ml Inj IV Q10MIN PRN ANALGESIA Gabapentin 600 mg 07/25/20 14:00 08/09/20 05:27 Gabapentin PO 600 mg Q8HR ROMMEL Administration Hydrophilic Ointment 1 applic 07/08/20 13:16 07/22/20 23:01 Vaseline Lip Therapy TP 1 applic Q2HR PRN Administration Dry Lips Hydroxychloroquine Sulfate 200 mg 07/07/20 10:00 08/08/20 09:09 Plaquenil PO 200 mg QDAY ROMMEL Administration Midazolam HCl 100 mg/ Sodium 100 mls @ 2 mls/hr 07/08/20 15:00 08/08/20 13:01 Chloride IV 5 mg/hr TITR ROMMEL 5 mls/hr Administration Protocol 2 MG/HR Sodium Chloride 500 mls @ 10 mls/hr 07/15/20 15:00 Nacl 0.9% 500 Ml IV DIRECT ROMMEL Norepinephrine 4 mg in 250 mls @ 7.5 mls/hr 07/27/20 05:00 Levophed Drip 4 Mg/Ns 250 Ml IV TITR ROMMEL Protocol 2 MCG/MIN Vasopressin 20 unit/ Sodium 101 mls @ 9.09 mls/hr 07/30/20 13:00 08/04/20 14:25 Chloride IV 0 units/min TITR ROMMEL 0 mls/hr Titration Protocol 0.03 UNITS/MIN Phenylephrine HCl 100 mg/ 100 mls @ 3 mls/hr 07/30/20 15:00 08/04/20 10:08 Sodium Chloride IV 0 mcg/min TITR ROMMEL 0 mls/hr Titration Protocol 50 MCG/MIN Dopamine HCl/Dextrose 800 mg in 250 mls @ 3.679 mls/hr 07/31/20 22:00 Intropin Drip 800 Mg/D5w 250 Ml IV TITR ROMMEL Protocol 2 MCG/KG/MIN Heparin Sodium/Sodium Chloride 25,000 unit in 500 mls @ 30 mls/hr 08/05/20 13:00 08/08/20 21:15 Heparin/ 0.45% Nacl-25,000 Unit/500 Ml IV 1,700 units/hr TITR ROMMEL 34 mls/hr Administration Protocol 1,500 UNITS/HR Propofol 500 mg in 50 mls @ 2.946 mls/hr 08/05/20 13:00 08/09/20 02:20 Propofol IV 10 mcg/kg/min TITR ROMMEL 5.892 mls/hr Administration Protocol 5 MCG/KG/MIN Fentanyl Citrate 2,000 mcg in 100 mls @ 5.75 mls/hr 08/08/20 16:00 08/09/20 07:45 Fentanyl Drip Premix IV 4 mcg/kg/hr TITR ROMMEL 23 mls/hr Administration Protocol 1 MCG/KG/HR Insulin Glargine 20 units 08/08/20 10:00 08/08/20 09:08 Lantus SUB-Q 20 units DAILY ROMMEL Administration Insulin Human Regular 0 unit 08/01/20 00:00 08/09/20 05:39 Humulin R SUB-Q Not Given Q6HR [facility] Protocol Lansoprazole 30 mg 07/10/20 10:00 08/08/20 09:09 Lansoprazole 30 Mg Solutab FEEDTUBE 30 mg QDAY ROMMEL Administration Methylprednisolone Sodium Succinate 40 mg 07/22/20 14:00 08/08/20 21:27 Solu-Medrol IV 40 mg Q8H ROMMEL Administration Metoclopramide HCl 5 mg 08/05/20 12:00 08/09/20 05:28 Reglan IV 5 mg Q6HR ROMMEL Administration Multi-Ingred Cream/Lotion/Oil/Oint 1 applic 07/08/20 13:16 Artificial Tears Ophth Oint OU Q4HR PRN Dry Eye(s) Ondansetron HCl 4 mg 07/06/20 13:39 07/08/20 10:44 Zofran IV 4 mg Q8H PRN Administration Nausea And Vomiting Polyethylene Glycol 17 gm 07/29/20 12:00 08/08/20 09:17 Miralax 3350 PO Not Given DAILY ROMMEL Quetiapine Fumarate 200 mg 07/25/20 22:00 08/08/20 21:09 Seroquel PO 200 mg BID ROMMEL Administration Quetiapine Fumarate 100 mg 07/25/20 22:00 08/08/20 21:11 Seroquel PO 100 mg BID ROMMEL Administration Simple Syrup 15 ml 07/08/20 14:50 Simple Syrup FEEDTUBE PRN PRN Hypoglycemia Simple Syrup 30 ml 07/08/20 14:50 Simple Syrup FEEDTUBE PRN PRN Hypoglycemia Sodium Bicarbonate 325 mg 07/08/20 14:50 Sodium Bicarbonate FEEDTUBE PRN PRN For Clogged Feeding Tube Sodium Chloride 10 ml 07/06/20 14:00 08/08/20 21:14 Sodium Chloride Flush Syringe 10 Ml IV 10 ml BID ROMMEL Administration Sodium Chloride 10 ml 07/06/20 13:39 07/26/20 06:31 Sodium Chloride Flush Syringe 10 Ml IV 10 ml PRN PRN Administration LINE FLUSH Venlafaxine HCl 37.5 mg 07/07/20 10:00 08/08/20 09:09 Effexor PO 37.5 mg DAILY ROMMEL Administration Zinc Sulfate 220 mg 07/08/20 22:00 08/08/20 21:28 Zinc Sulfate PO 220 mg BID ROMMEL Administration Nutrition/Malnutrition Assess - Dietary Evaluation Nutrition/Malnutrition Findings: Nutrition Notes Start: 07/08/20 14:02 Freq: Status: Active Protocol: Document 08/07/20 11:40 EN (Rec: 08/07/20 11:48 EN [email or web address]) Co-Sign 08/07/20 11:40 LM Nutrition Notes Initial or Follow up Reassessment Current Diagnosis Hypertension,Heart Failure Other Pertinent Diagnosis Acute respiratory failure, COVID(+), GERD, Lupus, Anemia Current Diet Vital AF 1.2 at 55 mL/hr (goal rate) Labs/Tests Na 146 BUN 27 Glu 187 POC Glu 161 Pertinent Medications Fentanyl Humulin R Solu-medrol Propofol at 2.946ml/hr (78kcal ) Height 5 ft 5 in Weight 115 kg [place] Body Weight (kg) 56.81 BMI 42.2 Weight change and time frame Wt change noted Weight Status Morbidly Obese Subjective/Other Information F/u for TF tolerance and rate advancement. Pt is tolerating TF at goal rate. Per RN, pt still has gas in stomach but has decreased gastric residuals. Percent of energy/protein needs met: 81%/87% Burn Absent Trauma Absent GI Symptoms None Current % PO Negligible Minimum of two criteria No physical signs of malnutrition #1 Nutrition Diagnosis Inadequate oral intake Diagnosis Progress(for reassessment Continues documentation) Is patient on ventilator? Yes Is Patient Ambulatory and/or Out of Bed No REE-(Gallia-St. Jeor-confined to bed) 2140.284 Kcal/Kg value to use for calculation 17 Approximate Energy Requirements Using 1955 kcal/Kg Calculation Used for Recommendations Kcal/kg Additional Notes Pro: greater than 114 g (>2 g/ kg IBW) Fluid: 1ml/kcal or per MD Nutrition Intervention Change Diet Order: Continue TF Nutrition Support: Vital AF at 55 ml/hr Flush 75 ml q4h. For hypernatremia, flush 200ml q4h Kcal 1,584 Protein (gm) 99 Fluid (mL) 1,070 Goal #1 Meet at least 80% of protein and energy needs via TF Anticipated Discharge Needs: Cannot determine at this time Follow-Up By: 08/09/20 Additional Comments F/u for TF tolerance and Na labs
[2020-08-09] MEDS: ARFORMOTEROL 15 MCG/2 ML NEBU IH SCH ×2 (09:36→21:23)
[2020-08-09] MEDS: BUDESONIDE 0.5 MG/2 ML NEBU IH SCH ×2 (09:37→21:23)
[2020-08-09] MEDS: QUEtiapine 200 MG TAB PO SCH ×2 (11:35→22:28)
[2020-08-09] MEDS: POLYETHYLENE GLYCOL 3350 17 GM POWDER PO SCH (11:35)
[2020-08-09] MEDS: INSULIN GLARGINE 100 UNITS/ML SUB-Q SCH (11:35)
[2020-08-09] MEDS: LANSOPRAZOLE 30 MG SOLUTAB FEEDTUBE SCH (11:36)
[2020-08-09] MEDS: QUEtiapine 100 MG TAB PO SCH ×2 (11:36→22:28)
[2020-08-09] MEDS: ASPIRIN 81 MG TAB CHEW PO SCH (11:36)
[2020-08-09] MEDS: ZINC SULFATE 220 MG CAP PO SCH ×2 (11:36→22:29)
[2020-08-09] MEDS: ASCORBIC ACID 500 MG TAB PO SCH ×2 (11:36→22:28)
[2020-08-09] MEDS: ONDANSETRON 4 MG/2 ML INJ IV PRN (11:36)
[2020-08-09] MEDS: DOCUSATE SODIUM 100 MG/10 ML ORAL LIQD PO SCH ×2 (11:36→22:29)
--- NOTE | 2020-08-09 11:55 | Progress Note ---
Assessment and Plan Cultures: Blood cultures 07/07/2020 no growth SARS COV2- IgG negative Sputum culture 07/08/2020 usual respiratory kerwin Blood culture 07/11/2020 no growth Blood culture 07/19/2020 no growth Tracheal aspirate 07/30/2020 MRSA and E. coli Blood cultures 08/03/2020 no growth Blood culture 08/03/2020 no growth today A/P: 50-year-old female with CHF, asthma, hypertension, lupus was admitted to the hospital with complaints of fever, shortness of breath. Of note, she was seen last week due to an asthma exacerbation when her SARS-CoV-2 PCR and IgG were both negative. She was treated with steroids. She reportedly then went to [place] and tested positive for COVID-19 and was discharged from the hospital on 07/05/2020: #Sepsis with septic shock: off pressors, no fever for 48 hours now low-grade fe pratima, worsening leukocytosis. Repeat blood cultures negative. Urinalysis negative. Source VAP +/- sinusitis. procal 119-->1.3, CRP 49-->26. #Acute hypoxic respiratory failure: Remains intubated, likely secondary to VAP and bilateral pneumothorax. #Bilateral pneumothorax: Status post bilateral chest tube, surgery on board #VAP: Secondary to MRSA and E. coli. Chest x-ray not especially concerning, however worsening pulmonary status with associated fevers. Procalcitonin massively elevated even in the setting of acute renal injury. #Critical Covid pneumonia: Completed remdesivir, IV steroids. #Lupus: On Plaquenil. #CHF #Asthma #MAHOGANY: Possible in setting of vancomycin, resolved Recs: -Follow-up repeat blood cultures -Monitor off antibiotics. Completed ceftriaxone and vancomycin 10 days course on 08/03/2020 -If fever continues start Catysychel Zeng is rounding this weekend Guarded prognosis will follow Eneida Quiñones MD [facility] ([facility]) Office [phone] Subjective Date of service: 08/09/20 Principal diagnosis: Ac hypoxemic resp failure; PNA; COVID-19 infxn; SLE; Asthma exacerbation Interval history: Noted isolated low-grade fever. Tachycardia on monitor. Remains intubated. ROS: Unable to obtain Objective - Exam Narrative Exam: General appearance: Sedated intubated Eyes: anicteric sclerae, moist conjunctivae; no lid-lag; PERRLA HENT: Normocephalic, Atraumatic; normal external ears, nares +NGT w purulence, oropharynx limited endotracheal tube in place Neck: supple, tracheal midline, no JVD Lungs: Bilateral scattered crackles, bilateral chest tubes, chest tubes x2 on the right CV: Tachycardic Abdomen: Soft, non-tender; no masses or hepatosplenomegaly Extremities: Bilateral leg edema Skin: Bilateral neck and chest subcutaneous emphysema Psych: Sedated Neuro: Sedated - Constitutional Vitals: Vital Signs Temp Pulse Resp BP Pulse Ox 99.8 F H 104 H 18 157/79 99 08/09/20 08:00 08/09/20 09:38 08/09/20 09:37 08/09/20 09:38 08/09/20 09:38 Temperature -Last 24 Hours Temperature 99.8 F Temperature 100.4 F Temperature 99.8 F Temperature 99.2 F Temperature 99.7 F Temperature 99.3 F - Labs CBC & Chem 7: 08/07/20 02:06 08/07/20 02:06 Labs: Abnormal lab results 08/08/20 08/08/20 08/09/20 Range/Units 11:56 18:22 05:38 POC ABG pCO2 52.0 H (32.0-48.0) mmHg POC ABG pO2 54.1 L (83-108) mmHg ABG Hemoglobin 10.2 L (12.0-17.5) ABG Chloride 108.0 H (98-107) mmol/L ABG Glucose 124 H (65-95) mg/dL POC Glucose 155 H 134 H (70-105) mg/dL Arterial Blood Glucose 124 H (65-95) mg/dL 08/09/20 Range/Units 05:38 POC ABG pCO2 (32.0-48.0) mmHg POC ABG pO2 (83-108) mmHg ABG Hemoglobin (12.0-17.5) ABG Chloride (98-107) mmol/L ABG Glucose (65-95) mg/dL POC Glucose 130 H (70-105) mg/dL Arterial Blood Glucose (65-95) mg/dL
[2020-08-09] MEDS: HEPARIN/ 0.45% NACL DRIP 25,000 UNIT/500 ML BAG IV SCH (12:41)
[2020-08-09] MEDS: HYDROXYCHLOROQUINE 200 MG TAB PO SCH (13:01)
[2020-08-09] MEDS: VENLAFAXINE 37.5 MG TAB PO SCH (13:01)
--- NOTE | 2020-08-09 13:04 | Progress Note ---
Subjective Date of service: 08/09/20 Principal diagnosis: Ac hypoxemic resp failure; PNA; COVID-19 infxn; SLE; Asthma exacerbation Objective Vital Signs - 12hr 08/09/20 08/09/20 08/09/20 01:15 01:31 01:45 Temperature Pulse Rate 114 H 114 H 114 H Pulse Rate [ Bilateral Throughout] Respiratory 14 14 14 Rate Respiratory Rate [Bilateral Throughout] Blood Pressure 149/88 160/88 147/84 O2 Sat by Pulse 99 99 99 Oximetry 08/09/20 08/09/20 08/09/20 02:01 02:15 02:30 Temperature Pulse Rate 114 H 114 H 111 H Pulse Rate [ Bilateral Throughout] Respiratory 15 17 19 Rate Respiratory Rate [Bilateral Throughout] Blood Pressure 142/95 166/94 151/97 O2 Sat by Pulse 99 99 100 Oximetry 08/09/20 08/09/20 08/09/20 02:45 03:01 03:15 Temperature Pulse Rate 111 H 111 H 114 H Pulse Rate [ Bilateral Throughout] Respiratory 18 17 17 Rate Respiratory Rate [Bilateral Throughout] Blood Pressure 158/96 165/96 156/95 O2 Sat by Pulse 99 98 98 Oximetry 08/09/20 08/09/20 08/09/20 03:31 03:45 03:55 Temperature 100.4 F H Pulse Rate 111 H 111 H Pulse Rate [ Bilateral Throughout] Respiratory 17 21 Rate Respiratory Rate [Bilateral Throughout] Blood Pressure 165/94 170/93 O2 Sat by Pulse 96 95 Oximetry 08/09/20 08/09/20 08/09/20 04:00 04:01 04:15 Temperature Pulse Rate 143 H 113 H 113 H Pulse Rate [ Bilateral Throughout] Respiratory 22 27 H Rate Respiratory Rate [Bilateral Throughout] Blood Pressure 132/73 188/99 158/102 O2 Sat by Pulse 99 94 93 Oximetry 08/09/20 08/09/20 08/09/20 04:31 04:45 05:01 Temperature Pulse Rate 116 H 128 H 141 H Pulse Rate [ Bilateral Throughout] Respiratory 26 H 21 19 Rate Respiratory Rate [Bilateral Throughout] Blood Pressure 158/102 151/74 152/81 O2 Sat by Pulse 97 99 100 Oximetry 08/09/20 08/09/20 08/09/20 05:15 05:31 05:45 Temperature Pulse Rate 145 H 145 H 137 H Pulse Rate [ Bilateral Throughout] Respiratory 21 19 17 Rate Respiratory Rate [Bilateral Throughout] Blood Pressure 129/72 132/73 122/73 O2 Sat by Pulse 100 99 100 Oximetry 08/09/20 08/09/20 08/09/20 06:01 06:15 06:31 Temperature Pulse Rate 128 H 123 H 124 H Pulse Rate [ Bilateral Throughout] Respiratory 21 16 14 Rate Respiratory Rate [Bilateral Throughout] Blood Pressure 110/77 124/82 122/83 O2 Sat by Pulse 100 100 100 Oximetry 08/09/20 08/09/20 08/09/20 06:45 07:00 07:15 Temperature Pulse Rate 123 H 122 H 123 H Pulse Rate [ Bilateral Throughout] Respiratory 16 20 15 Rate Respiratory Rate [Bilateral Throughout] Blood Pressure 132/81 142/85 143/86 O2 Sat by Pulse 100 99 100 Oximetry 08/09/20 08/09/20 08/09/20 07:30 07:45 08:00 Temperature 99.8 F H Pulse Rate 118 H 120 H 118 H Pulse Rate [ Bilateral Throughout] Respiratory 17 21 31 H Rate Respiratory Rate [Bilateral Throughout] Blood Pressure 167/86 167/97 167/90 O2 Sat by Pulse 100 100 100 Oximetry 08/09/20 08/09/20 08/09/20 08:15 08:30 08:45 Temperature Pulse Rate 123 H 124 H 127 H Pulse Rate [ Bilateral Throughout] Respiratory 18 18 25 H Rate Respiratory Rate [Bilateral Throughout] Blood Pressure 182/89 170/86 180/91 O2 Sat by Pulse 99 100 99 Oximetry 08/09/20 08/09/20 08/09/20 09:01 09:15 09:31 Temperature Pulse Rate 126 H 122 H 122 H Pulse Rate [ Bilateral Throughout] Respiratory 15 13 13 Rate Respiratory Rate [Bilateral Throughout] Blood Pressure 170/86 157/79 157/79 O2 Sat by Pulse 100 99 100 Oximetry 08/09/20 08/09/20 08/09/20 09:37 09:38 09:45 Temperature Pulse Rate 104 H 129 H Pulse Rate [ 104 H Bilateral Throughout] Respiratory 22 Rate Respiratory 18 Rate [Bilateral Throughout] Blood Pressure 157/79 161/100 O2 Sat by Pulse 99 99 Oximetry 08/09/20 08/09/20 08/09/20 10:01 10:15 10:31 Temperature Pulse Rate 134 H 135 H 129 H Pulse Rate [ Bilateral Throughout] Respiratory 16 17 17 Rate Respiratory Rate [Bilateral Throughout] Blood Pressure 161/100 128/72 128/72 O2 Sat by Pulse 99 100 100 Oximetry 08/09/20 08/09/20 08/09/20 10:45 11:01 11:15 Temperature Pulse Rate 128 H 127 H 124 H Pulse Rate [ Bilateral Throughout] Respiratory 16 28 H 17 Rate Respiratory Rate [Bilateral Throughout] Blood Pressure 139/84 139/84 141/97 O2 Sat by Pulse 97 99 98 Oximetry 08/09/20 08/09/20 08/09/20 11:31 11:45 12:00 Temperature 99.8 F H Pulse Rate 128 H 127 H 130 H Pulse Rate [ Bilateral Throughout] Respiratory 22 22 Rate Respiratory Rate [Bilateral Throughout] Blood Pressure 139/84 161/101 161/101 O2 Sat by Pulse 97 96 97 Oximetry 08/09/20 08/09/20 08/09/20 12:01 12:15 12:31 Temperature Pulse Rate 130 H 132 H 129 H Pulse Rate [ Bilateral Throughout] Respiratory 24 25 H 17 Rate Respiratory Rate [Bilateral Throughout] Blood Pressure 161/101 169/110 169/110 O2 Sat by Pulse 97 94 99 Oximetry 08/09/20 12:45 Temperature Pulse Rate 127 H Pulse Rate [ Bilateral Throughout] Respiratory 16 Rate Respiratory Rate [Bilateral Throughout] Blood Pressure 169/110 O2 Sat by Pulse 99 Oximetry Constitutional: no acute distress, other (middle aged obese female with mildly increased respiratory effort at rest on MVS) Eyes: non-icteric ENT: oropharynx moist, other (ETT 23cm YANET) Neck: supple, no lymphadenopathy, no JVD Effort: mildly labored Ascultation: Bilateral: diminished breath sounds, rhonchi, other (two R. chest tubes and 1 on left (leaks on right side)) Percussion: Bilateral: not dull Cardiovascular: regular rate and rhythm, other (S1,S2) Gastrointestinal: normoactive bowel sounds, soft, non-tender, non-distended Integumentary: normal Extremities: no cyanosis, no edema, pulses normal, no ischemia or petechiae Neurologic: pupils equal and round, other (sedated) Psychiatric: other (unable to assess re: AMS / sedation) CBC and BMP: 08/07/20 02:06 08/07/20 02:06 ABG, PT/INR, D-dimer: ABG ABG pH 7.369 (7.320-7.450) 08/09/20 05:38 POC ABG pCO2 52.0 mmHg (32.0-48.0) H 08/09/20 05:38 ABG pCO2 47.9 mm Hg 08/07/20 04:00 POC ABG pO2 54.1 mmHg (83-108) L 08/09/20 05:38 ABG pO2 111.4 mm Hg (80.0-90.0) H 08/07/20 04:00 POC ABG HCO3 29.3 08/09/20 05:38 ABG O2 Saturation 97.9 % (95.0-99.0) 08/07/20 04:00 PT/INR, D-dimer PT 15.4 Sec. (12.2-14.9) H 08/05/20 13:35 INR 1.22 (0.87-1.13) H 08/05/20 13:35 D-Dimer 4748.32 ng/mlDDU (0-234) H 08/05/20 13:35 Abnormal lab findings: Abnormal Labs 07/06/20 07/06/20 07/07/20 05:24 17:16 04:50 WBC 13.5 H 12.7 H RBC Hgb Hct MCH MCHC RDW Plt Count Lymph % (Auto) Lymph # (Auto) Seg Neutrophils % Seg Neuts % (Manual) 86.0 H 87.0 H Lymphocytes % (Manual) 6.0 L 9.0 L Eosinophils % (Manual) Nucleated RBC % Seg Neutrophils # Seg Neutrophils # Man 11.6 H 11.0 H Lymphocytes # (Manual) 0.8 L 1.1 L Eosinophils # (Manual) PT INR D-Dimer Heparin Anti-Xa Level ABG pH POC ABG pCO2 POC ABG pO2 ABG pO2 ABG HCO3 ABG O2 Saturation ABG Base Excess ABG Hemoglobin ABG Oxyhemoglobin ABG Sodium ABG Potassium ABG Chloride ABG Glucose Oxyhemoglobin Carboxyhemoglobin Sodium Potassium Chloride Carbon Dioxide BUN Creatinine Glucose POC Glucose Lactic Acid Calcium Ferritin AST ALT Lactate Dehydrogenase 242 H C-Reactive Protein 7.30 H Total Protein Albumin Triglycerides Arterial Blood Glucose Arterial Blood Ionized Calcium Urine Creatinine Urine Total Protein Vancomycin Trough Coronavirus (PCR) SARS-CoV-2 IgG Ab 07/07/20 07/07/20 07/07/20 04:50 14:22 14:22 WBC RBC Hgb Hct MCH MCHC RDW Plt Count Lymph % (Auto) Lymph # (Auto) Seg Neutrophils % Seg Neuts % (Manual) Lymphocytes % (Manual) Eosinophils % (Manual) Nucleated RBC % Seg Neutrophils # Seg Neutrophils # Man Lymphocytes # (Manual) Eosinophils # (Manual) PT INR D-Dimer Heparin Anti-Xa Level ABG pH POC ABG pCO2 POC ABG pO2 ABG pO2 ABG HCO3 ABG O2 Saturation ABG Base Excess ABG Hemoglobin ABG Oxyhemoglobin ABG Sodium ABG Potassium ABG Chloride ABG Glucose Oxyhemoglobin Carboxyhemoglobin Sodium Potassium Chloride Carbon Dioxide BUN 18 H Creatinine Glucose 138 H POC Glucose Lactic Acid Calcium Ferritin 228.2 H AST ALT Lactate Dehydrogenase 277 H C-Reactive Protein Total Protein 5.9 L Albumin 3.4 L Triglycerides Arterial Blood Glucose Arterial Blood Ionized Calcium Urine Creatinine Urine Total Protein Vancomycin Trough Coronavirus (PCR) SARS-CoV-2 IgG Ab 07/08/20 07/08/20 07/08/20 11:18 12:57 16:13 WBC RBC Hgb Hct MCH MCHC RDW Plt Count Lymph % (Auto) Lymph # (Auto) Seg Neutrophils % Seg Neuts % (Manual) Lymphocytes % (Manual) Eosinophils % (Manual) Nucleated RBC % Seg Neutrophils # Seg Neutrophils # Man Lymphocytes # (Manual) Eosinophils # (Manual) PT INR D-Dimer Heparin Anti-Xa Level ABG pH POC ABG pCO2 POC ABG pO2 ABG pO2 39.3 L* ABG HCO3 ABG O2 Saturation 76.8 L ABG Base Excess ABG Hemoglobin ABG Oxyhemoglobin ABG Sodium ABG Potassium ABG Chloride ABG Glucose Oxyhemoglobin 75.3 L Carboxyhemoglobin Sodium Potassium Chloride Carbon Dioxide 20 L D BUN Creatinine Glucose 135 H POC Glucose 106 H Lactic Acid Calcium 8.0 L Ferritin AST ALT Lactate Dehydrogenase C-Reactive Protein Total Protein Albumin Triglycerides Arterial Blood Glucose Arterial Blood Ionized Calcium Urine Creatinine Urine Total Protein Vancomycin Trough Coronavirus (PCR) SARS-CoV-2 IgG Ab 07/08/20 07/08/20 07/09/20 17:04 18:45 04:00 WBC 15.6 H RBC Hgb Hct MCH MCHC RDW Plt Count Lymph % (Auto) 4.7 L Lymph # (Auto) 0.7 L Seg Neutrophils % Seg Neuts % (Manual) Lymphocytes % (Manual) Eosinophils % (Manual) Nucleated RBC % Seg Neutrophils # 14.2 H Seg Neutrophils # Man Lymphocytes # (Manual) Eosinophils # (Manual) PT INR D-Dimer Heparin Anti-Xa Level ABG pH POC ABG pCO2 POC ABG pO2 ABG pO2 181.8 H ABG HCO3 ABG O2 Saturation 99.1 H ABG Base Excess ABG Hemoglobin 11.4 L ABG Oxyhemoglobin ABG Sodium ABG Potassium ABG Chloride ABG Glucose Oxyhemoglobin Carboxyhemoglobin Sodium Potassium Chloride Carbon Dioxide BUN Creatinine Glucose POC Glucose 117 H Lactic Acid Calcium Ferritin AST ALT Lactate Dehydrogenase C-Reactive Protein Total Protein Albumin Triglycerides Arterial Blood Glucose Arterial Blood Ionized Calcium Urine Creatinine Urine Total Protein Vancomycin Trough Coronavirus (PCR) SARS-CoV-2 IgG Ab 07/09/20 07/09/20 07/09/20 04:00 04:00 04:49 WBC RBC Hgb Hct MCH MCHC RDW Plt Count Lymph % (Auto) Lymph # (Auto) Seg Neutrophils % Seg Neuts % (Manual) Lymphocytes % (Manual) Eosinophils % (Manual) Nucleated RBC % Seg Neutrophils # Seg Neutrophils # Man Lymphocytes # (Manual) Eosinophils # (Manual) PT INR D-Dimer Heparin Anti-Xa Level ABG pH POC ABG pCO2 POC ABG pO2 ABG pO2 ABG HCO3 26.2 H ABG O2 Saturation ABG Base Excess ABG Hemoglobin 11.2 L ABG Oxyhemoglobin ABG Sodium ABG Potassium ABG Chloride ABG Glucose Oxyhemoglobin 94.9 L Carboxyhemoglobin Sodium Potassium Chloride Carbon Dioxide BUN Creatinine Glucose 158 H POC Glucose Lactic Acid Calcium 8.2 L Ferritin 320.0 H AST ALT Lactate Dehydrogenase 391 H C-Reactive Protein 9.50 H Total Protein 5.9 L Albumin 3.2 L Triglycerides Arterial Blood Glucose Arterial Blood Ionized Calcium Urine Creatinine Urine Total Protein Vancomycin Trough Coronavirus (PCR) SARS-CoV-2 IgG Ab 07/09/20 07/09/20 07/09/20 11:56 17:49 23:39 WBC RBC Hgb Hct MCH MCHC RDW Plt Count Lymph % (Auto) Lymph # (Auto) Seg Neutrophils % Seg Neuts % (Manual) Lymphocytes % (Manual) Eosinophils % (Manual) Nucleated RBC % Seg Neutrophils # Seg Neutrophils # Man Lymphocytes # (Manual) Eosinophils # (Manual) PT INR D-Dimer Heparin Anti-Xa Level ABG pH POC ABG pCO2 POC ABG pO2 ABG pO2 ABG HCO3 ABG O2 Saturation ABG Base Excess ABG Hemoglobin ABG Oxyhemoglobin ABG Sodium ABG Potassium ABG Chloride ABG Glucose Oxyhemoglobin Carboxyhemoglobin Sodium Potassium Chloride Carbon Dioxide BUN Creatinine Glucose POC Glucose 156 H 119 H 145 H Lactic Acid Calcium Ferritin AST ALT Lactate Dehydrogenase C-Reactive Protein Total Protein Albumin Triglycerides Arterial Blood Glucose Arterial Blood Ionized Calcium Urine Creatinine Urine Total Protein Vancomycin Trough Coronavirus (PCR) SARS-CoV-2 IgG Ab 07/10/20 07/10/20 07/10/20 03:32 05:26 11:22 WBC RBC Hgb Hct MCH MCHC RDW Plt Count Lymph % (Auto) Lymph # (Auto) Seg Neutrophils % Seg Neuts % (Manual) Lymphocytes % (Manual) Eosinophils % (Manual) Nucleated RBC % Seg Neutrophils # Seg Neutrophils # Man Lymphocytes # (Manual) Eosinophils # (Manual) PT INR D-Dimer Heparin Anti-Xa Level ABG pH POC ABG pCO2 POC ABG pO2 ABG pO2 75.7 L ABG HCO3 27.5 H ABG O2 Saturation ABG Base Excess ABG Hemoglobin 9.3 L ABG Oxyhemoglobin ABG Sodium ABG Potassium ABG Chloride ABG Glucose Oxyhemoglobin 94.7 L Carboxyhemoglobin Sodium Potassium Chloride Carbon Dioxide BUN Creatinine Glucose POC Glucose 156 H 148 H Lactic Acid Calcium Ferritin AST ALT Lactate Dehydrogenase C-Reactive Protein Total Protein Albumin Triglycerides Arterial Blood Glucose Arterial Blood Ionized Calcium Urine Creatinine Urine Total Protein Vancomycin Trough Coronavirus (PCR) SARS-CoV-2 IgG Ab 07/10/20 07/10/20 07/10/20 12:10 12:10 18:20 WBC 14.1 H RBC 3.33 L Hgb 9.9 L Hct MCH MCHC RDW Plt Count Lymph % (Auto) Lymph # (Auto) Seg Neutrophils % Seg Neuts % (Manual) 89.0 H Lymphocytes % (Manual) 8.0 L Eosinophils % (Manual) Nucleated RBC % Seg Neutrophils # Seg Neutrophils # Man 12.5 H Lymphocytes # (Manual) 1.1 L Eosinophils # (Manual) PT INR D-Dimer Heparin Anti-Xa Level ABG pH POC ABG pCO2 POC ABG pO2 ABG pO2 ABG HCO3 ABG O2 Saturation ABG Base Excess ABG Hemoglobin ABG Oxyhemoglobin ABG Sodium ABG Potassium ABG Chloride ABG Glucose Oxyhemoglobin Carboxyhemoglobin Sodium Potassium Chloride Carbon Dioxide BUN 21 H Creatinine Glucose 154 H POC Glucose 181 H Lactic Acid Calcium 8.0 L Ferritin AST ALT Lactate Dehydrogenase C-Reactive Protein Total Protein 5.4 L Albumin 3.0 L Triglycerides Arterial Blood Glucose Arterial Blood Ionized Calcium Urine Creatinine Urine Total Protein Vancomycin Trough Coronavirus (PCR) SARS-CoV-2 IgG Ab 07/10/20 07/11/20 07/11/20 23:51 04:05 05:43 WBC RBC Hgb Hct MCH MCHC RDW Plt Count Lymph % (Auto) Lymph # (Auto) Seg Neutrophils % Seg Neuts % (Manual) Lymphocytes % (Manual) Eosinophils % (Manual) Nucleated RBC % Seg Neutrophils # Seg Neutrophils # Man Lymphocytes # (Manual) Eosinophils # (Manual) PT INR D-Dimer Heparin Anti-Xa Level ABG pH 7.348 L POC ABG pCO2 POC ABG pO2 ABG pO2 93.6 H ABG HCO3 28.5 H ABG O2 Saturation ABG Base Excess ABG Hemoglobin 10.1 L ABG Oxyhemoglobin ABG Sodium ABG Potassium ABG Chloride ABG Glucose Oxyhemoglobin Carboxyhemoglobin Sodium Potassium Chloride Carbon Dioxide BUN Creatinine Glucose POC Glucose 116 H 132 H Lactic Acid Calcium Ferritin AST ALT Lactate Dehydrogenase C-Reactive Protein Total Protein Albumin Triglycerides Arterial Blood Glucose Arterial Blood Ionized Calcium Urine Creatinine Urine Total Protein Vancomycin Trough Coronavirus (PCR) SARS-CoV-2 IgG Ab 07/11/20 07/11/20 07/11/20 09:11 09:11 09:11 WBC 15.8 H RBC 3.44 L Hgb Hct MCH MCHC RDW Plt Count Lymph % (Auto) Lymph # (Auto) Seg Neutrophils % Seg Neuts % (Manual) 92.0 H Lymphocytes % (Manual) 4.0 L Eosinophils % (Manual) Nucleated RBC % Seg Neutrophils # Seg Neutrophils # Man 14.5 H Lymphocytes # (Manual) 0.6 L Eosinophils # (Manual) PT INR D-Dimer 360.61 H Heparin Anti-Xa Level ABG pH POC ABG pCO2 POC ABG pO2 ABG pO2 ABG HCO3 ABG O2 Saturation ABG Base Excess ABG Hemoglobin ABG Oxyhemoglobin ABG Sodium ABG Potassium ABG Chloride ABG Glucose Oxyhemoglobin Carboxyhemoglobin Sodium Potassium Chloride 107.1 H Carbon Dioxide BUN 22 H Creatinine Glucose 149 H POC Glucose Lactic Acid Calcium 7.8 L Ferritin AST ALT Lactate Dehydrogenase 483 H C-Reactive Protein 2.30 H Total Protein 4.9 L Albumin 3.0 L Triglycerides Arterial Blood Glucose Arterial Blood Ionized Calcium Urine Creatinine Urine Total Protein Vancomycin Trough Coronavirus (PCR) SARS-CoV-2 IgG Ab 07/11/20 07/11/20 07/11/20 09:11 12:16 17:55 WBC RBC Hgb Hct MCH MCHC RDW Plt Count Lymph % (Auto) Lymph # (Auto) Seg Neutrophils % Seg Neuts % (Manual) Lymphocytes % (Manual) Eosinophils % (Manual) Nucleated RBC % Seg Neutrophils # Seg Neutrophils # Man Lymphocytes # (Manual) Eosinophils # (Manual) PT INR D-Dimer Heparin Anti-Xa Level ABG pH POC ABG pCO2 POC ABG pO2 ABG pO2 ABG HCO3 ABG O2 Saturation ABG Base Excess ABG Hemoglobin ABG Oxyhemoglobin ABG Sodium ABG Potassium ABG Chloride ABG Glucose Oxyhemoglobin Carboxyhemoglobin Sodium Potassium Chloride Carbon Dioxide BUN Creatinine Glucose POC Glucose 157 H 166 H Lactic Acid Calcium Ferritin 371.2 H AST ALT Lactate Dehydrogenase C-Reactive Protein Total Protein Albumin Triglycerides Arterial Blood Glucose Arterial Blood Ionized Calcium Urine Creatinine Urine Total Protein Vancomycin Trough Coronavirus (PCR) SARS-CoV-2 IgG Ab 07/12/20 07/12/20 07/12/20 00:32 04:00 04:00 WBC RBC 3.52 L Hgb Hct MCH MCHC RDW Plt Count Lymph % (Auto) Lymph # (Auto) Seg Neutrophils % Seg Neuts % (Manual) 90.0 H Lymphocytes % (Manual) 4.0 L Eosinophils % (Manual) Nucleated RBC % Seg Neutrophils # Seg Neutrophils # Man 9.5 H Lymphocytes # (Manual) 0.4 L Eosinophils # (Manual) PT INR D-Dimer Heparin Anti-Xa Level ABG pH POC ABG pCO2 POC ABG pO2 ABG pO2 ABG HCO3 ABG O2 Saturation ABG Base Excess ABG Hemoglobin ABG Oxyhemoglobin ABG Sodium ABG Potassium ABG Chloride ABG Glucose Oxyhemoglobin Carboxyhemoglobin Sodium Potassium Chloride Carbon Dioxide 31 H BUN 21 H Creatinine Glucose 175 H POC Glucose 178 H Lactic Acid Calcium 8.0 L Ferritin AST ALT Lactate Dehydrogenase C-Reactive Protein Total Protein 5.4 L Albumin 3.0 L Triglycerides Arterial Blood Glucose Arterial Blood Ionized Calcium Urine Creatinine Urine Total Protein Vancomycin Trough Coronavirus (PCR) SARS-CoV-2 IgG Ab 07/12/20 07/12/20 07/12/20 04:01 05:47 12:09 WBC RBC Hgb Hct MCH MCHC RDW Plt Count Lymph % (Auto) Lymph # (Auto) Seg Neutrophils % Seg Neuts % (Manual) Lymphocytes % (Manual) Eosinophils % (Manual) Nucleated RBC % Seg Neutrophils # Seg Neutrophils # Man Lymphocytes # (Manual) Eosinophils # (Manual) PT INR D-Dimer Heparin Anti-Xa Level ABG pH 7.465 H POC ABG pCO2 POC ABG pO2 ABG pO2 ABG HCO3 ABG O2 Saturation ABG Base Excess ABG Hemoglobin 10.6 L ABG Oxyhemoglobin ABG Sodium ABG Potassium ABG Chloride ABG Glucose 177 H Oxyhemoglobin Carboxyhemoglobin Sodium Potassium Chloride Carbon Dioxide BUN Creatinine Glucose POC Glucose 185 H 227 H Lactic Acid Calcium Ferritin AST ALT Lactate Dehydrogenase C-Reactive Protein Total Protein Albumin Triglycerides Arterial Blood Glucose 177 H Arterial Blood Ionized Calcium 4.5 L Urine Creatinine Urine Total Protein Vancomycin Trough Coronavirus (PCR) SARS-CoV-2 IgG Ab 07/12/20 07/12/20 07/13/20 17:34 23:57 05:06 WBC RBC Hgb Hct MCH MCHC RDW Plt Count Lymph % (Auto) Lymph # (Auto) Seg Neutrophils % Seg Neuts % (Manual) Lymphocytes % (Manual) Eosinophils % (Manual) Nucleated RBC % Seg Neutrophils # Seg Neutrophils # Man Lymphocytes # (Manual) Eosinophils # (Manual) PT INR D-Dimer Heparin Anti-Xa Level ABG pH POC ABG pCO2 POC ABG pO2 ABG pO2 ABG HCO3 ABG O2 Saturation ABG Base Excess ABG Hemoglobin ABG Oxyhemoglobin ABG Sodium ABG Potassium ABG Chloride ABG Glucose Oxyhemoglobin Carboxyhemoglobin Sodium Potassium Chloride Carbon Dioxide BUN Creatinine Glucose POC Glucose 202 H 163 H 166 H Lactic Acid Calcium Ferritin AST ALT Lactate Dehydrogenase C-Reactive Protein Total Protein Albumin Triglycerides Arterial Blood Glucose Arterial Blood Ionized Calcium Urine Creatinine Urine Total Protein Vancomycin Trough Coronavirus (PCR) SARS-CoV-2 IgG Ab 07/13/20 07/13/20 07/13/20 07:20 07:20 07:20 WBC 20.5 H RBC Hgb Hct MCH MCHC RDW Plt Count Lymph % (Auto) Lymph # (Auto) Seg Neutrophils % Seg Neuts % (Manual) 93.0 H Lymphocytes % (Manual) 3.0 L Eosinophils % (Manual) Nucleated RBC % Seg Neutrophils # Seg Neutrophils # Man 19.1 H Lymphocytes # (Manual) 0.6 L Eosinophils # (Manual) PT INR D-Dimer 826.36 H Heparin Anti-Xa Level ABG pH POC ABG pCO2 POC ABG pO2 ABG pO2 ABG HCO3 ABG O2 Saturation ABG Base Excess ABG Hemoglobin ABG Oxyhemoglobin ABG Sodium ABG Potassium ABG Chloride ABG Glucose Oxyhemoglobin Carboxyhemoglobin Sodium Potassium Chloride Carbon Dioxide 31 H BUN 25 H Creatinine Glucose 163 H POC Glucose Lactic Acid Calcium 8.1 L Ferritin AST ALT Lactate Dehydrogenase 512 H C-Reactive Protein 1.80 H Total Protein 5.8 L Albumin 3.2 L Triglycerides Arterial Blood Glucose Arterial Blood Ionized Calcium Urine Creatinine Urine Total Protein Vancomycin Trough Coronavirus (PCR) SARS-CoV-2 IgG Ab 07/13/20 07/13/20 07/13/20 07:20 11:37 17:20 WBC RBC Hgb Hct MCH MCHC RDW Plt Count Lymph % (Auto) Lymph # (Auto) Seg Neutrophils % Seg Neuts % (Manual) Lymphocytes % (Manual) Eosinophils % (Manual) Nucleated RBC % Seg Neutrophils # Seg Neutrophils # Man Lymphocytes # (Manual) Eosinophils # (Manual) PT INR D-Dimer Heparin Anti-Xa Level ABG pH POC ABG pCO2 POC ABG pO2 ABG pO2 ABG HCO3 ABG O2 Saturation ABG Base Excess ABG Hemoglobin ABG Oxyhemoglobin ABG Sodium ABG Potassium ABG Chloride ABG Glucose Oxyhemoglobin Carboxyhemoglobin Sodium Potassium Chloride Carbon Dioxide BUN Creatinine Glucose POC Glucose 232 H 210 H Lactic Acid Calcium Ferritin 219.8 H AST ALT Lactate Dehydrogenase C-Reactive Protein Total Protein Albumin Triglycerides Arterial Blood Glucose Arterial Blood Ionized Calcium Urine Creatinine Urine Total Protein Vancomycin Trough Coronavirus (PCR) SARS-CoV-2 IgG Ab 07/13/20 07/13/20 07/14/20 23:57 Unknown 05:22 WBC RBC Hgb Hct MCH MCHC RDW Plt Count Lymph % (Auto) Lymph # (Auto) Seg Neutrophils % Seg Neuts % (Manual) Lymphocytes % (Manual) Eosinophils % (Manual) Nucleated RBC % Seg Neutrophils # Seg Neutrophils # Man Lymphocytes # (Manual) Eosinophils # (Manual) PT INR D-Dimer Heparin Anti-Xa Level ABG pH 7.341 L POC ABG pCO2 POC ABG pO2 133.0 H ABG pO2 56.5 L ABG HCO3 29.7 H ABG O2 Saturation 89.3 L ABG Base Excess ABG Hemoglobin 11.0 L ABG Oxyhemoglobin ABG Sodium ABG Potassium ABG Chloride ABG Glucose 207 H Oxyhemoglobin 87.7 L Carboxyhemoglobin Sodium Potassium Chloride Carbon Dioxide BUN Creatinine Glucose POC Glucose 190 H Lactic Acid Calcium Ferritin AST ALT Lactate Dehydrogenase C-Reactive Protein Total Protein Albumin Triglycerides Arterial Blood Glucose 207 H Arterial Blood Ionized Calcium 4.5 L Urine Creatinine Urine Total Protein Vancomycin Trough Coronavirus (PCR) SARS-CoV-2 IgG Ab 07/14/20 07/14/20 07/14/20 05:54 11:16 17:50 WBC RBC Hgb Hct MCH MCHC RDW Plt Count Lymph % (Auto) Lymph # (Auto) Seg Neutrophils % Seg Neuts % (Manual) Lymphocytes % (Manual) Eosinophils % (Manual) Nucleated RBC % Seg Neutrophils # Seg Neutrophils # Man Lymphocytes # (Manual) Eosinophils # (Manual) PT INR D-Dimer Heparin Anti-Xa Level ABG pH POC ABG pCO2 POC ABG pO2 ABG pO2 ABG HCO3 ABG O2 Saturation ABG Base Excess ABG Hemoglobin ABG Oxyhemoglobin ABG Sodium ABG Potassium ABG Chloride ABG Glucose Oxyhemoglobin Carboxyhemoglobin Sodium Potassium Chloride Carbon Dioxide BUN Creatinine Glucose POC Glucose 206 H 196 H 205 H Lactic Acid Calcium Ferritin AST ALT Lactate Dehydrogenase C-Reactive Protein Total Protein Albumin Triglycerides Arterial Blood Glucose Arterial Blood Ionized Calcium Urine Creatinine Urine Total Protein Vancomycin Trough Coronavirus (PCR) SARS-CoV-2 IgG Ab 07/14/20 07/15/20 07/15/20 23:28 03:16 06:12 WBC RBC Hgb Hct MCH MCHC RDW Plt Count Lymph % (Auto) Lymph # (Auto) Seg Neutrophils % Seg Neuts % (Manual) Lymphocytes % (Manual) Eosinophils % (Manual) Nucleated RBC % Seg Neutrophils # Seg Neutrophils # Man Lymphocytes # (Manual) Eosinophils # (Manual) PT INR D-Dimer Heparin Anti-Xa Level ABG pH POC ABG pCO2 49.2 H POC ABG pO2 120.3 H ABG pO2 ABG HCO3 ABG O2 Saturation ABG Base Excess ABG Hemoglobin 9.5 L ABG Oxyhemoglobin ABG Sodium ABG Potassium ABG Chloride ABG Glucose 148 H Oxyhemoglobin Carboxyhemoglobin Sodium Potassium Chloride Carbon Dioxide BUN Creatinine Glucose POC Glucose 160 H 178 H Lactic Acid Calcium Ferritin AST ALT Lactate Dehydrogenase C-Reactive Protein Total Protein Albumin Triglycerides Arterial Blood Glucose 148 H Arterial Blood Ionized Calcium Urine Creatinine Urine Total Protein Vancomycin Trough Coronavirus (PCR) SARS-CoV-2 IgG Ab 07/15/20 07/15/20 07/15/20 09:00 12:32 14:30 WBC RBC Hgb Hct MCH MCHC RDW Plt Count Lymph % (Auto) Lymph # (Auto) Seg Neutrophils % Seg Neuts % (Manual) Lymphocytes % (Manual) Eosinophils % (Manual) Nucleated RBC % Seg Neutrophils # Seg Neutrophils # Man Lymphocytes # (Manual) Eosinophils # (Manual) PT INR D-Dimer Heparin Anti-Xa Level ABG pH POC ABG pCO2 POC ABG pO2 ABG pO2 ABG HCO3 ABG O2 Saturation ABG Base Excess ABG Hemoglobin ABG Oxyhemoglobin ABG Sodium ABG Potassium ABG Chloride ABG Glucose Oxyhemoglobin Carboxyhemoglobin Sodium Potassium Chloride Carbon Dioxide BUN Creatinine Glucose POC Glucose 173 H Lactic Acid Calcium Ferritin AST ALT Lactate Dehydrogenase 531 H C-Reactive Protein Total Protein Albumin Triglycerides Arterial Blood Glucose Arterial Blood Ionized Calcium Urine Creatinine Urine Total Protein Vancomycin Trough Coronavirus (PCR) SARS-CoV-2 IgG Ab Reactive A 07/15/20 07/15/20 07/16/20 18:24 23:35 04:03 WBC RBC Hgb Hct MCH MCHC RDW Plt Count Lymph % (Auto) Lymph # (Auto) Seg Neutrophils % Seg Neuts % (Manual) Lymphocytes % (Manual) Eosinophils % (Manual) Nucleated RBC % Seg Neutrophils # Seg Neutrophils # Man Lymphocytes # (Manual) Eosinophils # (Manual) PT INR D-Dimer Heparin Anti-Xa Level ABG pH POC ABG pCO2 POC ABG pO2 ABG pO2 72.7 L ABG HCO3 35.5 H ABG O2 Saturation ABG Base Excess 9.4 H ABG Hemoglobin 10.6 L ABG Oxyhemoglobin ABG Sodium ABG Potassium ABG Chloride ABG Glucose Oxyhemoglobin 93.6 L Carboxyhemoglobin Sodium Potassium Chloride Carbon Dioxide BUN Creatinine Glucose POC Glucose 173 H 181 H Lactic Acid Calcium Ferritin AST ALT Lactate Dehydrogenase C-Reactive Protein Total Protein Albumin Triglycerides Arterial Blood Glucose Arterial Blood Ionized Calcium Urine Creatinine Urine Total Protein Vancomycin Trough Coronavirus (PCR) SARS-CoV-2 IgG Ab 07/16/20 07/16/20 07/16/20 05:35 09:00 09:00 WBC 16.5 H RBC 3.59 L Hgb Hct MCH MCHC RDW Plt Count Lymph % (Auto) Lymph # (Auto) Seg Neutrophils % Seg Neuts % (Manual) 96.0 H Lymphocytes % (Manual) 3.0 L Eosinophils % (Manual) Nucleated RBC % Seg Neutrophils # Seg Neutrophils # Man 15.8 H Lymphocytes # (Manual) 0.5 L Eosinophils # (Manual) PT INR D-Dimer Heparin Anti-Xa Level ABG pH POC ABG pCO2 POC ABG pO2 ABG pO2 ABG HCO3 ABG O2 Saturation ABG Base Excess ABG Hemoglobin ABG Oxyhemoglobin ABG Sodium ABG Potassium ABG Chloride ABG Glucose Oxyhemoglobin Carboxyhemoglobin Sodium Potassium Chloride Carbon Dioxide 39 H D BUN 25 H Creatinine 0.4 L Glucose 167 H POC Glucose 129 H Lactic Acid Calcium 8.3 L Ferritin AST ALT Lactate Dehydrogenase C-Reactive Protein Total Protein Albumin Triglycerides Arterial Blood Glucose Arterial Blood Ionized Calcium Urine Creatinine Urine Total Protein Vancomycin Trough Coronavirus (PCR) SARS-CoV-2 IgG Ab 07/16/20 07/16/20 07/17/20 12:32 18:28 00:09 WBC RBC Hgb Hct MCH MCHC RDW Plt Count Lymph % (Auto) Lymph # (Auto) Seg Neutrophils % Seg Neuts % (Manual) Lymphocytes % (Manual) Eosinophils % (Manual) Nucleated RBC % Seg Neutrophils # Seg Neutrophils # Man Lymphocytes # (Manual) Eosinophils # (Manual) PT INR D-Dimer Heparin Anti-Xa Level ABG pH POC ABG pCO2 POC ABG pO2 ABG pO2 ABG HCO3 ABG O2 Saturation ABG Base Excess ABG Hemoglobin ABG Oxyhemoglobin ABG Sodium ABG Potassium ABG Chloride ABG Glucose Oxyhemoglobin Carboxyhemoglobin Sodium Potassium Chloride Carbon Dioxide BUN Creatinine Glucose POC Glucose 187 H 174 H 184 H Lactic Acid Calcium Ferritin AST ALT Lactate Dehydrogenase C-Reactive Protein Total Protein Albumin Triglycerides Arterial Blood Glucose Arterial Blood Ionized Calcium Urine Creatinine Urine Total Protein Vancomycin Trough Coronavirus (PCR) SARS-CoV-2 IgG Ab 07/17/20 07/17/20 07/17/20 04:30 05:47 13:03 WBC RBC Hgb Hct MCH MCHC RDW Plt Count Lymph % (Auto) Lymph # (Auto) Seg Neutrophils % Seg Neuts % (Manual) Lymphocytes % (Manual) Eosinophils % (Manual) Nucleated RBC % Seg Neutrophils # Seg Neutrophils # Man Lymphocytes # (Manual) Eosinophils # (Manual) PT INR D-Dimer Heparin Anti-Xa Level ABG pH POC ABG pCO2 POC ABG pO2 ABG pO2 ABG HCO3 38.1 H ABG O2 Saturation ABG Base Excess 11.3 H ABG Hemoglobin 10.5 L ABG Oxyhemoglobin ABG Sodium ABG Potassium ABG Chloride ABG Glucose Oxyhemoglobin Carboxyhemoglobin Sodium Potassium Chloride Carbon Dioxide BUN Creatinine Glucose POC Glucose 135 H 210 H Lactic Acid Calcium Ferritin AST ALT Lactate Dehydrogenase C-Reactive Protein Total Protein Albumin Triglycerides Arterial Blood Glucose Arterial Blood Ionized Calcium Urine Creatinine Urine Total Protein Vancomycin Trough Coronavirus (PCR) SARS-CoV-2 IgG Ab 07/17/20 07/17/20 07/18/20 16:50 23:39 04:01 WBC RBC Hgb Hct MCH MCHC RDW Plt Count Lymph % (Auto) Lymph # (Auto) Seg Neutrophils % Seg Neuts % (Manual) Lymphocytes % (Manual) Eosinophils % (Manual) Nucleated RBC % Seg Neutrophils # Seg Neutrophils # Man Lymphocytes # (Manual) Eosinophils # (Manual) PT INR D-Dimer Heparin Anti-Xa Level ABG pH POC ABG pCO2 56.8 H POC ABG pO2 61.9 L ABG pO2 ABG HCO3 ABG O2 Saturation ABG Base Excess ABG Hemoglobin 11.7 L ABG Oxyhemoglobin ABG Sodium 134.2 L ABG Potassium 4.7 H ABG Chloride 97.0 L ABG Glucose 173 H Oxyhemoglobin Carboxyhemoglobin Sodium Potassium Chloride Carbon Dioxide BUN Creatinine Glucose POC Glucose 193 H 163 H Lactic Acid Calcium Ferritin AST ALT Lactate Dehydrogenase C-Reactive Protein Total Protein Albumin Triglycerides Arterial Blood Glucose 173 H Arterial Blood Ionized Calcium Urine Creatinine Urine Total Protein Vancomycin Trough Coronavirus (PCR) SARS-CoV-2 IgG Ab 07/18/20 07/18/20 07/18/20 05:41 12:03 17:26 WBC RBC Hgb Hct MCH MCHC RDW Plt Count Lymph % (Auto) Lymph # (Auto) Seg Neutrophils % Seg Neuts % (Manual) Lymphocytes % (Manual) Eosinophils % (Manual) Nucleated RBC % Seg Neutrophils # Seg Neutrophils # Man Lymphocytes # (Manual) Eosinophils # (Manual) PT INR D-Dimer Heparin Anti-Xa Level ABG pH POC ABG pCO2 POC ABG pO2 ABG pO2 ABG HCO3 ABG O2 Saturation ABG Base Excess ABG Hemoglobin ABG Oxyhemoglobin ABG Sodium ABG Potassium ABG Chloride ABG Glucose Oxyhemoglobin Carboxyhemoglobin Sodium Potassium Chloride Carbon Dioxide BUN Creatinine Glucose POC Glucose 153 H 177 H 160 H Lactic Acid Calcium Ferritin AST ALT Lactate Dehydrogenase C-Reactive Protein Total Protein Albumin Triglycerides Arterial Blood Glucose Arterial Blood Ionized Calcium Urine Creatinine Urine Total Protein Vancomycin Trough Coronavirus (PCR) SARS-CoV-2 IgG Ab 07/18/20 07/19/20 07/19/20 23:58 04:15 05:05 WBC RBC Hgb Hct MCH MCHC RDW Plt Count Lymph % (Auto) Lymph # (Auto) Seg Neutrophils % Seg Neuts % (Manual) Lymphocytes % (Manual) Eosinophils % (Manual) Nucleated RBC % Seg Neutrophils # Seg Neutrophils # Man Lymphocytes # (Manual) Eosinophils # (Manual) PT INR D-Dimer Heparin Anti-Xa Level ABG pH 7.465 H POC ABG pCO2 49.1 H POC ABG pO2 49.4 L ABG pO2 ABG HCO3 ABG O2 Saturation ABG Base Excess ABG Hemoglobin 11.6 L ABG Oxyhemoglobin ABG Sodium 132.3 L ABG Potassium ABG Chloride 97.0 L ABG Glucose 148 H Oxyhemoglobin Carboxyhemoglobin Sodium Potassium Chloride Carbon Dioxide BUN Creatinine Glucose POC Glucose 144 H 117 H Lactic Acid Calcium Ferritin AST ALT Lactate Dehydrogenase C-Reactive Protein Total Protein Albumin Triglycerides Arterial Blood Glucose 148 H Arterial Blood Ionized Calcium Urine Creatinine Urine Total Protein Vancomycin Trough Coronavirus (PCR) SARS-CoV-2 IgG Ab 07/19/20 07/19/20 07/19/20 08:30 08:30 13:21 WBC 17.2 H RBC 3.59 L Hgb Hct MCH MCHC RDW Plt Count Lymph % (Auto) Lymph # (Auto) Seg Neutrophils % Seg Neuts % (Manual) Lymphocytes % (Manual) Eosinophils % (Manual) Nucleated RBC % Seg Neutrophils # Seg Neutrophils # Man Lymphocytes # (Manual) Eosinophils # (Manual) PT INR D-Dimer Heparin Anti-Xa Level ABG pH POC ABG pCO2 POC ABG pO2 ABG pO2 ABG HCO3 ABG O2 Saturation ABG Base Excess ABG Hemoglobin ABG Oxyhemoglobin ABG Sodium ABG Potassium ABG Chloride ABG Glucose Oxyhemoglobin Carboxyhemoglobin Sodium Potassium Chloride 95.7 L Carbon Dioxide 37 H BUN 20 H Creatinine 0.4 L Glucose 125 H POC Glucose 137 H Lactic Acid Calcium 8.1 L Ferritin AST ALT Lactate Dehydrogenase C-Reactive Protein Total Protein Albumin Triglycerides Arterial Blood Glucose Arterial Blood Ionized Calcium Urine Creatinine Urine Total Protein Vancomycin Trough Coronavirus (PCR) SARS-CoV-2 IgG Ab 07/19/20 07/19/20 07/20/20 16:29 17:28 00:25 WBC RBC Hgb Hct MCH MCHC RDW Plt Count Lymph % (Auto) Lymph # (Auto) Seg Neutrophils % Seg Neuts % (Manual) Lymphocytes % (Manual) Eosinophils % (Manual) Nucleated RBC % Seg Neutrophils # Seg Neutrophils # Man Lymphocytes # (Manual) Eosinophils # (Manual) PT INR D-Dimer Heparin Anti-Xa Level ABG pH POC ABG pCO2 53.4 H POC ABG pO2 71.0 L ABG pO2 ABG HCO3 ABG O2 Saturation ABG Base Excess ABG Hemoglobin 11.2 L ABG Oxyhemoglobin 93.6 L ABG Sodium 130.9 L ABG Potassium ABG Chloride 95.0 L ABG Glucose 188 H Oxyhemoglobin Carboxyhemoglobin Sodium Potassium Chloride Carbon Dioxide BUN Creatinine Glucose POC Glucose 174 H 188 H Lactic Acid Calcium Ferritin AST ALT Lactate Dehydrogenase C-Reactive Protein Total Protein Albumin Triglycerides Arterial Blood Glucose 188 H Arterial Blood Ionized Calcium 4.4 L Urine Creatinine Urine Total Protein Vancomycin Trough Coronavirus (PCR) SARS-CoV-2 IgG Ab 07/20/20 07/20/20 07/20/20 04:14 05:23 12:12 WBC RBC Hgb Hct MCH MCHC RDW Plt Count Lymph % (Auto) Lymph # (Auto) Seg Neutrophils % Seg Neuts % (Manual) Lymphocytes % (Manual) Eosinophils % (Manual) Nucleated RBC % Seg Neutrophils # Seg Neutrophils # Man Lymphocytes # (Manual) Eosinophils # (Manual) PT INR D-Dimer Heparin Anti-Xa Level ABG pH POC ABG pCO2 52.7 H POC ABG pO2 59.5 L ABG pO2 ABG HCO3 ABG O2 Saturation ABG Base Excess ABG Hemoglobin 10.6 L ABG Oxyhemoglobin ABG Sodium 134.4 L ABG Potassium ABG Chloride ABG Glucose 176 H Oxyhemoglobin Carboxyhemoglobin Sodium Potassium Chloride Carbon Dioxide BUN Creatinine Glucose POC Glucose 212 H 190 H Lactic Acid Calcium Ferritin AST ALT Lactate Dehydrogenase C-Reactive Protein Total Protein Albumin Triglycerides Arterial Blood Glucose 176 H Arterial Blood Ionized Calcium 4.5 L Urine Creatinine Urine Total Protein Vancomycin Trough Coronavirus (PCR) SARS-CoV-2 IgG Ab 07/20/20 07/21/20 07/21/20 16:59 00:01 04:30 WBC RBC Hgb Hct MCH MCHC RDW Plt Count Lymph % (Auto) Lymph # (Auto) Seg Neutrophils % Seg Neuts % (Manual) Lymphocytes % (Manual) Eosinophils % (Manual) Nucleated RBC % Seg Neutrophils # Seg Neutrophils # Man Lymphocytes # (Manual) Eosinophils # (Manual) PT INR D-Dimer Heparin Anti-Xa Level ABG pH 7.468 H POC ABG pCO2 POC ABG pO2 63.3 L ABG pO2 ABG HCO3 ABG O2 Saturation ABG Base Excess ABG Hemoglobin 11 L ABG Oxyhemoglobin ABG Sodium 135.0 L ABG Potassium ABG Chloride ABG Glucose 204 H Oxyhemoglobin Carboxyhemoglobin Sodium Potassium Chloride Carbon Dioxide BUN Creatinine Glucose POC Glucose 201 H 177 H Lactic Acid Calcium Ferritin AST ALT Lactate Dehydrogenase C-Reactive Protein Total Protein Albumin Triglycerides Arterial Blood Glucose 204 H Arterial Blood Ionized Calcium 4.5 L Urine Creatinine Urine Total Protein Vancomycin Trough Coronavirus (PCR) SARS-CoV-2 IgG Ab 07/21/20 07/21/20 07/21/20 05:26 11:50 17:16 WBC RBC Hgb Hct MCH MCHC RDW Plt Count Lymph % (Auto) Lymph # (Auto) Seg Neutrophils % Seg Neuts % (Manual) Lymphocytes % (Manual) Eosinophils % (Manual) Nucleated RBC % Seg Neutrophils # Seg Neutrophils # Man Lymphocytes # (Manual) Eosinophils # (Manual) PT INR D-Dimer Heparin Anti-Xa Level ABG pH POC ABG pCO2 POC ABG pO2 ABG pO2 ABG HCO3 ABG O2 Saturation ABG Base Excess ABG Hemoglobin ABG Oxyhemoglobin ABG Sodium ABG Potassium ABG Chloride ABG Glucose Oxyhemoglobin Carboxyhemoglobin Sodium Potassium Chloride Carbon Dioxide BUN Creatinine Glucose POC Glucose 175 H 157 H 148 H Lactic Acid Calcium Ferritin AST ALT Lactate Dehydrogenase C-Reactive Protein Total Protein Albumin Triglycerides Arterial Blood Glucose Arterial Blood Ionized Calcium Urine Creatinine Urine Total Protein Vancomycin Trough Coronavirus (PCR) SARS-CoV-2 IgG Ab 07/22/20 07/22/20 07/22/20 00:01 03:26 05:16 WBC RBC Hgb Hct MCH MCHC RDW Plt Count Lymph % (Auto) Lymph # (Auto) Seg Neutrophils % Seg Neuts % (Manual) Lymphocytes % (Manual) Eosinophils % (Manual) Nucleated RBC % Seg Neutrophils # Seg Neutrophils # Man Lymphocytes # (Manual) Eosinophils # (Manual) PT INR D-Dimer Heparin Anti-Xa Level ABG pH POC ABG pCO2 POC ABG pO2 54.2 L ABG pO2 ABG HCO3 ABG O2 Saturation ABG Base Excess ABG Hemoglobin 10.9 L ABG Oxyhemoglobin ABG Sodium 133.7 L ABG Potassium ABG Chloride ABG Glucose 217 H Oxyhemoglobin Carboxyhemoglobin Sodium Potassium Chloride Carbon Dioxide BUN Creatinine Glucose POC Glucose 172 H 182 H Lactic Acid Calcium Ferritin AST ALT Lactate Dehydrogenase C-Reactive Protein Total Protein Albumin Triglycerides Arterial Blood Glucose 217 H Arterial Blood Ionized Calcium 4.5 L Urine Creatinine Urine Total Protein Vancomycin Trough Coronavirus (PCR) SARS-CoV-2 IgG Ab 07/22/20 07/22/20 07/23/20 11:43 17:08 04:00 WBC 11.6 H RBC 3.54 L Hgb Hct MCH MCHC RDW Plt Count Lymph % (Auto) Lymph # (Auto) Seg Neutrophils % Seg Neuts % (Manual) 94.0 H Lymphocytes % (Manual) 5.0 L Eosinophils % (Manual) Nucleated RBC % Seg Neutrophils # Seg Neutrophils # Man 10.9 H Lymphocytes # (Manual) 0.6 L Eosinophils # (Manual) PT INR D-Dimer Heparin Anti-Xa Level ABG pH POC ABG pCO2 POC ABG pO2 ABG pO2 ABG HCO3 ABG O2 Saturation ABG Base Excess ABG Hemoglobin ABG Oxyhemoglobin ABG Sodium ABG Potassium ABG Chloride ABG Glucose Oxyhemoglobin Carboxyhemoglobin Sodium Potassium Chloride Carbon Dioxide BUN Creatinine Glucose POC Glucose 159 H 163 H Lactic Acid Calcium Ferritin AST ALT Lactate Dehydrogenase C-Reactive Protein Total Protein Albumin Triglycerides Arterial Blood Glucose Arterial Blood Ionized Calcium Urine Creatinine Urine Total Protein Vancomycin Trough Coronavirus (PCR) SARS-CoV-2 IgG Ab 07/23/20 07/23/20 07/23/20 04:00 04:53 04:54 WBC RBC Hgb Hct MCH MCHC RDW Plt Count Lymph % (Auto) Lymph # (Auto) Seg Neutrophils % Seg Neuts % (Manual) Lymphocytes % (Manual) Eosinophils % (Manual) Nucleated RBC % Seg Neutrophils # Seg Neutrophils # Man Lymphocytes # (Manual) Eosinophils # (Manual) PT INR D-Dimer Heparin Anti-Xa Level ABG pH 7.453 H POC ABG pCO2 POC ABG pO2 ABG pO2 ABG HCO3 32.4 H ABG O2 Saturation ABG Base Excess 7.5 H ABG Hemoglobin 10.7 L ABG Oxyhemoglobin ABG Sodium ABG Potassium ABG Chloride ABG Glucose Oxyhemoglobin Carboxyhemoglobin Sodium Potassium Chloride Carbon Dioxide 35 H BUN Creatinine 0.4 L Glucose 112 H POC Glucose 169 H Lactic Acid Calcium 8.2 L Ferritin AST ALT Lactate Dehydrogenase C-Reactive Protein Total Protein Albumin Triglycerides Arterial Blood Glucose Arterial Blood Ionized Calcium Urine Creatinine Urine Total Protein Vancomycin Trough Coronavirus (PCR) SARS-CoV-2 IgG Ab 07/23/20 07/23/20 07/23/20 11:50 23:19 Unknown WBC RBC Hgb Hct MCH MCHC RDW Plt Count Lymph % (Auto) Lymph # (Auto) Seg Neutrophils % Seg Neuts % (Manual) Lymphocytes % (Manual) Eosinophils % (Manual) Nucleated RBC % Seg Neutrophils # Seg Neutrophils # Man Lymphocytes # (Manual) Eosinophils # (Manual) PT INR D-Dimer Heparin Anti-Xa Level ABG pH POC ABG pCO2 POC ABG pO2 ABG pO2 ABG HCO3 ABG O2 Saturation ABG Base Excess ABG Hemoglobin ABG Oxyhemoglobin ABG Sodium ABG Potassium ABG Chloride ABG Glucose Oxyhemoglobin Carboxyhemoglobin Sodium Potassium Chloride Carbon Dioxide BUN Creatinine Glucose POC Glucose 118 H 168 H Lactic Acid Calcium Ferritin AST ALT Lactate Dehydrogenase C-Reactive Protein Total Protein Albumin Triglycerides Arterial Blood Glucose Arterial Blood Ionized Calcium Urine Creatinine Urine Total Protein Vancomycin Trough Coronavirus (PCR) Positive A SARS-CoV-2 IgG Ab 07/24/20 07/24/20 07/24/20 04:11 05:37 11:42 WBC RBC Hgb Hct MCH MCHC RDW Plt Count Lymph % (Auto) Lymph # (Auto) Seg Neutrophils % Seg Neuts % (Manual) Lymphocytes % (Manual) Eosinophils % (Manual) Nucleated RBC % Seg Neutrophils # Seg Neutrophils # Man Lymphocytes # (Manual) Eosinophils # (Manual) PT INR D-Dimer Heparin Anti-Xa Level ABG pH POC ABG pCO2 POC ABG pO2 ABG pO2 54.4 L ABG HCO3 34.3 H ABG O2 Saturation 89.0 L ABG Base Excess 8.5 H ABG Hemoglobin 11.0 L ABG Oxyhemoglobin ABG Sodium ABG Potassium ABG Chloride ABG Glucose Oxyhemoglobin 87.0 L Carboxyhemoglobin Sodium Potassium Chloride Carbon Dioxide BUN Creatinine Glucose POC Glucose 115 H 166 H Lactic Acid Calcium Ferritin AST ALT Lactate Dehydrogenase C-Reactive Protein Total Protein Albumin Triglycerides Arterial Blood Glucose Arterial Blood Ionized Calcium Urine Creatinine Urine Total Protein Vancomycin Trough Coronavirus (PCR) SARS-CoV-2 IgG Ab 07/24/20 07/24/20 07/25/20 17:39 23:38 03:53 WBC RBC Hgb Hct MCH MCHC RDW Plt Count Lymph % (Auto) Lymph # (Auto) Seg Neutrophils % Seg Neuts % (Manual) Lymphocytes % (Manual) Eosinophils % (Manual) Nucleated RBC % Seg Neutrophils # Seg Neutrophils # Man Lymphocytes # (Manual) Eosinophils # (Manual) PT INR D-Dimer Heparin Anti-Xa Level ABG pH POC ABG pCO2 POC ABG pO2 ABG pO2 175.9 H ABG HCO3 34.0 H ABG O2 Saturation 99.1 H ABG Base Excess 8.2 H ABG Hemoglobin 10.6 L ABG Oxyhemoglobin ABG Sodium ABG Potassium ABG Chloride ABG Glucose Oxyhemoglobin Carboxyhemoglobin Sodium Potassium Chloride Carbon Dioxide BUN Creatinine Glucose POC Glucose 150 H 139 H Lactic Acid Calcium Ferritin AST ALT Lactate Dehydrogenase C-Reactive Protein Total Protein Albumin Triglycerides Arterial Blood Glucose Arterial Blood Ionized Calcium Urine Creatinine Urine Total Protein Vancomycin Trough Coronavirus (PCR) SARS-CoV-2 IgG Ab 07/25/20 07/25/20 07/25/20 05:47 12:09 23:46 WBC RBC Hgb Hct MCH MCHC RDW Plt Count Lymph % (Auto) Lymph # (Auto) Seg Neutrophils % Seg Neuts % (Manual) Lymphocytes % (Manual) Eosinophils % (Manual) Nucleated RBC % Seg Neutrophils # Seg Neutrophils # Man Lymphocytes # (Manual) Eosinophils # (Manual) PT INR D-Dimer Heparin Anti-Xa Level ABG pH POC ABG pCO2 POC ABG pO2 ABG pO2 ABG HCO3 ABG O2 Saturation ABG Base Excess ABG Hemoglobin ABG Oxyhemoglobin ABG Sodium ABG Potassium ABG Chloride ABG Glucose Oxyhemoglobin Carboxyhemoglobin Sodium Potassium Chloride Carbon Dioxide BUN Creatinine Glucose POC Glucose 144 H 152 H 116 H Lactic Acid Calcium Ferritin AST ALT Lactate Dehydrogenase C-Reactive Protein Total Protein Albumin Triglycerides Arterial Blood Glucose Arterial Blood Ionized Calcium Urine Creatinine Urine Total Protein Vancomycin Trough Coronavirus (PCR) SARS-CoV-2 IgG Ab 07/26/20 07/26/20 07/26/20 03:48 05:36 11:28 WBC RBC Hgb Hct MCH MCHC RDW Plt Count Lymph % (Auto) Lymph # (Auto) Seg Neutrophils % Seg Neuts % (Manual) Lymphocytes % (Manual) Eosinophils % (Manual) Nucleated RBC % Seg Neutrophils # Seg Neutrophils # Man Lymphocytes # (Manual) Eosinophils # (Manual) PT INR D-Dimer Heparin Anti-Xa Level ABG pH POC ABG pCO2 POC ABG pO2 ABG pO2 73.4 L ABG HCO3 35.0 H ABG O2 Saturation ABG Base Excess 8.3 H ABG Hemoglobin 9.8 L ABG Oxyhemoglobin ABG Sodium ABG Potassium ABG Chloride ABG Glucose Oxyhemoglobin 93.7 L Carboxyhemoglobin Sodium Potassium Chloride Carbon Dioxide BUN Creatinine Glucose POC Glucose 136 H 145 H Lactic Acid Calcium Ferritin AST ALT Lactate Dehydrogenase C-Reactive Protein Total Protein Albumin Triglycerides Arterial Blood Glucose Arterial Blood Ionized Calcium Urine Creatinine Urine Total Protein Vancomycin Trough Coronavirus (PCR) SARS-CoV-2 IgG Ab 07/26/20 07/26/20 07/26/20 14:23 17:19 23:33 WBC 12.0 H RBC 3.12 L Hgb 9.5 L Hct 28.6 L MCH MCHC RDW Plt Count Lymph % (Auto) 4.2 L Lymph # (Auto) 0.5 L Seg Neutrophils % 89.8 H Seg Neuts % (Manual) Lymphocytes % (Manual) Eosinophils % (Manual) Nucleated RBC % Seg Neutrophils # 10.8 H Seg Neutrophils # Man Lymphocytes # (Manual) Eosinophils # (Manual) PT INR D-Dimer Heparin Anti-Xa Level ABG pH POC ABG pCO2 POC ABG pO2 ABG pO2 ABG HCO3 ABG O2 Saturation ABG Base Excess ABG Hemoglobin ABG Oxyhemoglobin ABG Sodium ABG Potassium ABG Chloride ABG Glucose Oxyhemoglobin Carboxyhemoglobin Sodium Potassium Chloride Carbon Dioxide BUN Creatinine Glucose POC Glucose 202 H 122 H Lactic Acid Calcium Ferritin AST ALT Lactate Dehydrogenase C-Reactive Protein Total Protein Albumin Triglycerides Arterial Blood Glucose Arterial Blood Ionized Calcium Urine Creatinine Urine Total Protein Vancomycin Trough Coronavirus (PCR) SARS-CoV-2 IgG Ab 07/27/20 07/27/20 07/27/20 04:30 05:54 12:06 WBC RBC Hgb Hct MCH MCHC RDW Plt Count Lymph % (Auto) Lymph # (Auto) Seg Neutrophils % Seg Neuts % (Manual) Lymphocytes % (Manual) Eosinophils % (Manual) Nucleated RBC % Seg Neutrophils # Seg Neutrophils # Man Lymphocytes # (Manual) Eosinophils # (Manual) PT INR D-Dimer Heparin Anti-Xa Level ABG pH POC ABG pCO2 POC ABG pO2 ABG pO2 49.0 L ABG HCO3 35.7 H ABG O2 Saturation 87.6 L ABG Base Excess 10.1 H ABG Hemoglobin 11.5 L ABG Oxyhemoglobin ABG Sodium ABG Potassium ABG Chloride ABG Glucose Oxyhemoglobin 85.4 L Carboxyhemoglobin Sodium Potassium Chloride Carbon Dioxide BUN Creatinine Glucose POC Glucose 164 H 149 H Lactic Acid Calcium Ferritin AST ALT Lactate Dehydrogenase C-Reactive Protein Total Protein Albumin Triglycerides Arterial Blood Glucose Arterial Blood Ionized Calcium Urine Creatinine Urine Total Protein Vancomycin Trough Coronavirus (PCR) SARS-CoV-2 IgG Ab 07/27/20 07/27/20 07/27/20 13:00 14:18 14:18 WBC 12.2 H RBC 3.33 L Hgb 10.0 L Hct MCH MCHC RDW Plt Count Lymph % (Auto) Lymph # (Auto) Seg Neutrophils % Seg Neuts % (Manual) 90.0 H Lymphocytes % (Manual) 7.0 L Eosinophils % (Manual) Nucleated RBC % Seg Neutrophils # Seg Neutrophils # Man 11.0 H Lymphocytes # (Manual) 0.9 L Eosinophils # (Manual) PT INR D-Dimer Heparin Anti-Xa Level ABG pH 7.313 L POC ABG pCO2 POC ABG pO2 ABG pO2 107.5 H ABG HCO3 37.6 H ABG O2 Saturation ABG Base Excess 8.1 H ABG Hemoglobin 10.1 L ABG Oxyhemoglobin ABG Sodium ABG Potassium ABG Chloride ABG Glucose Oxyhemoglobin Carboxyhemoglobin Sodium Potassium Chloride 97.6 L Carbon Dioxide 35 H BUN 18 H Creatinine Glucose 135 H POC Glucose Lactic Acid Calcium 8.3 L Ferritin AST ALT Lactate Dehydrogenase C-Reactive Protein Total Protein Albumin Triglycerides Arterial Blood Glucose Arterial Blood Ionized Calcium Urine Creatinine Urine Total Protein Vancomycin Trough Coronavirus (PCR) SARS-CoV-2 IgG Ab 07/27/20 07/27/20 07/28/20 17:09 23:14 04:15 WBC RBC Hgb Hct MCH MCHC RDW Plt Count Lymph % (Auto) Lymph # (Auto) Seg Neutrophils % Seg Neuts % (Manual) Lymphocytes % (Manual) Eosinophils % (Manual) Nucleated RBC % Seg Neutrophils # Seg Neutrophils # Man Lymphocytes # (Manual) Eosinophils # (Manual) PT INR D-Dimer Heparin Anti-Xa Level ABG pH 7.317 L POC ABG pCO2 POC ABG pO2 ABG pO2 130.3 H ABG HCO3 40.9 H ABG O2 Saturation ABG Base Excess 13.5 H ABG Hemoglobin 5.8 L ABG Oxyhemoglobin ABG Sodium ABG Potassium ABG Chloride ABG Glucose Oxyhemoglobin Carboxyhemoglobin Sodium Potassium Chloride Carbon Dioxide BUN Creatinine Glucose POC Glucose 115 H 139 H Lactic Acid Calcium Ferritin AST ALT Lactate Dehydrogenase C-Reactive Protein Total Protein Albumin Triglycerides Arterial Blood Glucose Arterial Blood Ionized Calcium Urine Creatinine Urine Total Protein Vancomycin Trough Coronavirus (PCR) SARS-CoV-2 IgG Ab 07/28/20 07/28/20 07/28/20 05:34 09:20 09:20 WBC RBC 2.89 L Hgb 9.5 L Hct 26.6 L MCH 33 H MCHC 36 H RDW Plt Count 123 L Lymph % (Auto) Lymph # (Auto) Seg Neutrophils % Seg Neuts % (Manual) 89.0 H Lymphocytes % (Manual) 5.0 L Eosinophils % (Manual) Nucleated RBC % Seg Neutrophils # Seg Neutrophils # Man 8.6 H Lymphocytes # (Manual) 0.5 L Eosinophils # (Manual) PT INR D-Dimer Heparin Anti-Xa Level ABG pH POC ABG pCO2 POC ABG pO2 ABG pO2 ABG HCO3 ABG O2 Saturation ABG Base Excess ABG Hemoglobin ABG Oxyhemoglobin ABG Sodium ABG Potassium ABG Chloride ABG Glucose Oxyhemoglobin Carboxyhemoglobin Sodium 134 L Potassium Chloride 95.6 L Carbon Dioxide 39 H BUN Creatinine 0.3 L Glucose 131 H POC Glucose 130 H Lactic Acid Calcium 7.9 L Ferritin AST ALT Lactate Dehydrogenase C-Reactive Protein Total Protein Albumin Triglycerides Arterial Blood Glucose Arterial Blood Ionized Calcium Urine Creatinine Urine Total Protein Vancomycin Trough Coronavirus (PCR) SARS-CoV-2 IgG Ab 07/28/20 07/28/20 07/28/20 11:50 18:36 23:22 WBC RBC Hgb Hct MCH MCHC RDW Plt Count Lymph % (Auto) Lymph # (Auto) Seg Neutrophils % Seg Neuts % (Manual) Lymphocytes % (Manual) Eosinophils % (Manual) Nucleated RBC % Seg Neutrophils # Seg Neutrophils # Man Lymphocytes # (Manual) Eosinophils # (Manual) PT INR D-Dimer Heparin Anti-Xa Level ABG pH POC ABG pCO2 POC ABG pO2 ABG pO2 ABG HCO3 ABG O2 Saturation ABG Base Excess ABG Hemoglobin ABG Oxyhemoglobin ABG Sodium ABG Potassium ABG Chloride ABG Glucose Oxyhemoglobin Carboxyhemoglobin Sodium Potassium Chloride Carbon Dioxide BUN Creatinine Glucose POC Glucose 128 H 119 H 122 H Lactic Acid Calcium Ferritin AST ALT Lactate Dehydrogenase C-Reactive Protein Total Protein Albumin Triglycerides Arterial Blood Glucose Arterial Blood Ionized Calcium Urine Creatinine Urine Total Protein Vancomycin Trough Coronavirus (PCR) SARS-CoV-2 IgG Ab 07/29/20 07/29/20 07/29/20 03:18 07:54 07:54 WBC 11.1 H RBC 3.49 L Hgb Hct MCH MCHC RDW Plt Count 139 L Lymph % (Auto) Lymph # (Auto) Seg Neutrophils % Seg Neuts % (Manual) 90.0 H Lymphocytes % (Manual) 1.0 L Eosinophils % (Manual) 5.0 H Nucleated RBC % Seg Neutrophils # Seg Neutrophils # Man 10.0 H Lymphocytes # (Manual) 0.1 L Eosinophils # (Manual) 0.6 H PT INR D-Dimer Heparin Anti-Xa Level ABG pH POC ABG pCO2 69.5 H POC ABG pO2 109.3 H ABG pO2 ABG HCO3 ABG O2 Saturation ABG Base Excess ABG Hemoglobin 10.8 L ABG Oxyhemoglobin ABG Sodium ABG Potassium ABG Chloride 95.0 L ABG Glucose 138 H Oxyhemoglobin Carboxyhemoglobin Sodium Potassium Chloride 94.5 L Carbon Dioxide 40 H BUN Creatinine 0.5 L D Glucose 104 H POC Glucose Lactic Acid Calcium Ferritin AST ALT Lactate Dehydrogenase C-Reactive Protein Total Protein Albumin Triglycerides Arterial Blood Glucose 138 H Arterial Blood Ionized Calcium Urine Creatinine Urine Total Protein Vancomycin Trough Coronavirus (PCR) SARS-CoV-2 IgG Ab 07/29/20 07/29/20 07/29/20 11:05 18:17 19:41 WBC RBC Hgb Hct MCH MCHC RDW Plt Count Lymph % (Auto) Lymph # (Auto) Seg Neutrophils % Seg Neuts % (Manual) Lymphocytes % (Manual) Eosinophils % (Manual) Nucleated RBC % Seg Neutrophils # Seg Neutrophils # Man Lymphocytes # (Manual) Eosinophils # (Manual) PT INR D-Dimer Heparin Anti-Xa Level ABG pH 7.305 L POC ABG pCO2 73.3 H 66.7 H POC ABG pO2 28.2 L 32.7 L ABG pO2 ABG HCO3 ABG O2 Saturation ABG Base Excess ABG Hemoglobin 11.8 L 11.5 L ABG Oxyhemoglobin ABG Sodium ABG Potassium ABG Chloride 94.0 L 95.0 L ABG Glucose 207 H 141 H Oxyhemoglobin Carboxyhemoglobin Sodium Potassium Chloride Carbon Dioxide BUN Creatinine Glucose POC Glucose 113 H Lactic Acid Calcium Ferritin AST ALT Lactate Dehydrogenase C-Reactive Protein Total Protein Albumin Triglycerides Arterial Blood Glucose 207 H 141 H Arterial Blood Ionized Calcium 4.5 L Urine Creatinine Urine Total Protein Vancomycin Trough Coronavirus (PCR) SARS-CoV-2 IgG Ab 07/29/20 07/30/20 07/30/20 23:28 04:47 05:28 WBC RBC Hgb Hct MCH MCHC RDW Plt Count Lymph % (Auto) Lymph # (Auto) Seg Neutrophils % Seg Neuts % (Manual) Lymphocytes % (Manual) Eosinophils % (Manual) Nucleated RBC % Seg Neutrophils # Seg Neutrophils # Man Lymphocytes # (Manual) Eosinophils # (Manual) PT INR D-Dimer Heparin Anti-Xa Level ABG pH POC ABG pCO2 55.1 H POC ABG pO2 43.6 L ABG pO2 ABG HCO3 ABG O2 Saturation ABG Base Excess ABG Hemoglobin 11.9 L ABG Oxyhemoglobin ABG Sodium ABG Potassium ABG Chloride 96.0 L ABG Glucose 150 H Oxyhemoglobin Carboxyhemoglobin Sodium Potassium Chloride Carbon Dioxide BUN Creatinine Glucose POC Glucose 121 H 143 H Lactic Acid Calcium Ferritin AST ALT Lactate Dehydrogenase C-Reactive Protein Total Protein Albumin Triglycerides Arterial Blood Glucose 150 H Arterial Blood Ionized Calcium Urine Creatinine Urine Total Protein Vancomycin Trough Coronavirus (PCR) SARS-CoV-2 IgG Ab 07/30/20 07/30/20 07/30/20 08:18 12:00 14:17 WBC RBC Hgb Hct MCH MCHC RDW Plt Count Lymph % (Auto) Lymph # (Auto) Seg Neutrophils % Seg Neuts % (Manual) Lymphocytes % (Manual) Eosinophils % (Manual) Nucleated RBC % Seg Neutrophils # Seg Neutrophils # Man Lymphocytes # (Manual) Eosinophils # (Manual) PT INR D-Dimer Heparin Anti-Xa Level ABG pH POC ABG pCO2 63.3 H 64.6 H POC ABG pO2 47.9 L 41.0 L ABG pO2 ABG HCO3 ABG O2 Saturation ABG Base Excess ABG Hemoglobin 10.5 L 10.2 L ABG Oxyhemoglobin 84.9 L ABG Sodium ABG Potassium ABG Chloride 97.0 L ABG Glucose 170 H 175 H Oxyhemoglobin Carboxyhemoglobin Sodium Potassium Chloride Carbon Dioxide BUN Creatinine Glucose POC Glucose 161 H Lactic Acid Calcium Ferritin AST ALT Lactate Dehydrogenase C-Reactive Protein Total Protein Albumin Triglycerides Arterial Blood Glucose 170 H 175 H Arterial Blood Ionized Calcium 4.4 L 4.4 L Urine Creatinine Urine Total Protein Vancomycin Trough Coronavirus (PCR) SARS-CoV-2 IgG Ab 07/30/20 07/30/20 07/30/20 15:15 15:15 15:15 WBC RBC 2.80 L Hgb 9.1 L Hct 26.0 L D MCH MCHC 35 H RDW Plt Count 101 L Lymph % (Auto) Lymph # (Auto) Seg Neutrophils % Seg Neuts % (Manual) 90.0 H Lymphocytes % (Manual) 7.0 L Eosinophils % (Manual) Nucleated RBC % Seg Neutrophils # Seg Neutrophils # Man Lymphocytes # (Manual) 0.4 L Eosinophils # (Manual) PT INR D-Dimer Heparin Anti-Xa Level ABG pH POC ABG pCO2 POC ABG pO2 ABG pO2 ABG HCO3 ABG O2 Saturation ABG Base Excess ABG Hemoglobin ABG Oxyhemoglobin ABG Sodium ABG Potassium ABG Chloride ABG Glucose Oxyhemoglobin Carboxyhemoglobin Sodium Potassium Chloride 97.1 L Carbon Dioxide 32 H D BUN 39 H Creatinine 1.3 H D Glucose 167 H POC Glucose Lactic Acid Calcium 8.0 L Ferritin AST ALT Lactate Dehydrogenase C-Reactive Protein Total Protein Albumin Triglycerides 837 H Arterial Blood Glucose Arterial Blood Ionized Calcium Urine Creatinine Urine Total Protein Vancomycin Trough Coronavirus (PCR) SARS-CoV-2 IgG Ab 07/30/20 07/30/20 07/30/20 15:15 17:03 17:43 WBC RBC Hgb Hct MCH MCHC RDW Plt Count Lymph % (Auto) Lymph # (Auto) Seg Neutrophils % Seg Neuts % (Manual) Lymphocytes % (Manual) Eosinophils % (Manual) Nucleated RBC % Seg Neutrophils # Seg Neutrophils # Man Lymphocytes # (Manual) Eosinophils # (Manual) PT INR D-Dimer Heparin Anti-Xa Level ABG pH POC ABG pCO2 POC ABG pO2 ABG pO2 ABG HCO3 ABG O2 Saturation ABG Base Excess ABG Hemoglobin ABG Oxyhemoglobin ABG Sodium ABG Potassium ABG Chloride ABG Glucose Oxyhemoglobin Carboxyhemoglobin Sodium Potassium Chloride Carbon Dioxide BUN Creatinine Glucose POC Glucose 171 H Lactic Acid 2.20 H* 3.60 H* Calcium Ferritin AST ALT Lactate Dehydrogenase C-Reactive Protein Total Protein Albumin Triglycerides Arterial Blood Glucose Arterial Blood Ionized Calcium Urine Creatinine Urine Total Protein Vancomycin Trough Coronavirus (PCR) SARS-CoV-2 IgG Ab 07/30/20 07/30/20 07/31/20 20:13 23:37 04:15 WBC RBC Hgb Hct MCH MCHC RDW Plt Count Lymph % (Auto) Lymph # (Auto) Seg Neutrophils % Seg Neuts % (Manual) Lymphocytes % (Manual) Eosinophils % (Manual) Nucleated RBC % Seg Neutrophils # Seg Neutrophils # Man Lymphocytes # (Manual) Eosinophils # (Manual) PT INR D-Dimer Heparin Anti-Xa Level ABG pH 7.544 H 7.489 H POC ABG pCO2 POC ABG pO2 44.4 L 50.0 L ABG pO2 ABG HCO3 ABG O2 Saturation ABG Base Excess ABG Hemoglobin 10.4 L ABG Oxyhemoglobin ABG Sodium 135.3 L ABG Potassium ABG Chloride ABG Glucose 201 H 199 H Oxyhemoglobin Carboxyhemoglobin Sodium Potassium Chloride Carbon Dioxide BUN Creatinine Glucose POC Glucose 160 H Lactic Acid Calcium Ferritin AST ALT Lactate Dehydrogenase C-Reactive Protein Total Protein Albumin Triglycerides Arterial Blood Glucose 201 H 199 H Arterial Blood Ionized Calcium 4.2 L 4.4 L Urine Creatinine Urine Total Protein Vancomycin Trough Coronavirus (PCR) SARS-CoV-2 IgG Ab 07/31/20 07/31/20 07/31/20 05:16 05:16 05:28 WBC RBC 3.03 L Hgb 9.2 L Hct 27.6 L MCH MCHC RDW Plt Count 118 L Lymph % (Auto) 6.3 L Lymph # (Auto) 0.5 L Seg Neutrophils % Seg Neuts % (Manual) Lymphocytes % (Manual) Eosinophils % (Manual) Nucleated RBC % Seg Neutrophils # Seg Neutrophils # Man Lymphocytes # (Manual) Eosinophils # (Manual) PT INR D-Dimer Heparin Anti-Xa Level ABG pH POC ABG pCO2 POC ABG pO2 ABG pO2 ABG HCO3 ABG O2 Saturation ABG Base Excess ABG Hemoglobin ABG Oxyhemoglobin ABG Sodium ABG Potassium ABG Chloride ABG Glucose Oxyhemoglobin Carboxyhemoglobin Sodium Potassium Chloride Carbon Dioxide BUN 57 H Creatinine 1.7 H Glucose 208 H POC Glucose 182 H Lactic Acid Calcium 8.3 L Ferritin AST 613 H ALT 760 H Lactate Dehydrogenase C-Reactive Protein Total Protein 5.6 L Albumin 2.2 L Triglycerides Arterial Blood Glucose Arterial Blood Ionized Calcium Urine Creatinine Urine Total Protein Vancomycin Trough Coronavirus (PCR) SARS-CoV-2 IgG Ab 07/31/20 07/31/20 07/31/20 11:02 14:14 14:14 WBC RBC Hgb Hct MCH MCHC RDW Plt Count Lymph % (Auto) Lymph # (Auto) Seg Neutrophils % Seg Neuts % (Manual) Lymphocytes % (Manual) Eosinophils % (Manual) Nucleated RBC % Seg Neutrophils # Seg Neutrophils # Man Lymphocytes # (Manual) Eosinophils # (Manual) PT INR D-Dimer 2522.40 H Heparin Anti-Xa Level ABG pH POC ABG pCO2 POC ABG pO2 ABG pO2 ABG HCO3 ABG O2 Saturation ABG Base Excess ABG Hemoglobin ABG Oxyhemoglobin ABG Sodium ABG Potassium ABG Chloride ABG Glucose Oxyhemoglobin Carboxyhemoglobin Sodium Potassium Chloride Carbon Dioxide BUN Creatinine Glucose POC Glucose 200 H Lactic Acid Calcium Ferritin 964.8 H AST ALT Lactate Dehydrogenase C-Reactive Protein Total Protein Albumin Triglycerides Arterial Blood Glucose Arterial Blood Ionized Calcium Urine Creatinine Urine Total Protein Vancomycin Trough Coronavirus (PCR) SARS-CoV-2 IgG Ab 07/31/20 07/31/20 07/31/20 14:14 14:14 16:00 WBC RBC Hgb Hct MCH MCHC RDW Plt Count Lymph % (Auto) Lymph # (Auto) Seg Neutrophils % Seg Neuts % (Manual) Lymphocytes % (Manual) Eosinophils % (Manual) Nucleated RBC % Seg Neutrophils # Seg Neutrophils # Man Lymphocytes # (Manual) Eosinophils # (Manual) PT INR D-Dimer Heparin Anti-Xa Level ABG pH POC ABG pCO2 POC ABG pO2 ABG pO2 ABG HCO3 ABG O2 Saturation ABG Base Excess ABG Hemoglobin ABG Oxyhemoglobin ABG Sodium ABG Potassium ABG Chloride ABG Glucose Oxyhemoglobin Carboxyhemoglobin Sodium Potassium Chloride Carbon Dioxide BUN Creatinine Glucose POC Glucose Lactic Acid Calcium Ferritin AST ALT Lactate Dehydrogenase 585 H C-Reactive Protein 49.00 H Total Protein Albumin Triglycerides Arterial Blood Glucose Arterial Blood Ionized Calcium Urine Creatinine 89.2 H Urine Total Protein 108 H Vancomycin Trough 28.2 H Coronavirus (PCR) SARS-CoV-2 IgG Ab 07/31/20 07/31/20 08/01/20 17:22 21:26 00:07 WBC RBC Hgb Hct MCH MCHC RDW Plt Count Lymph % (Auto) Lymph # (Auto) Seg Neutrophils % Seg Neuts % (Manual) Lymphocytes % (Manual) Eosinophils % (Manual) Nucleated RBC % Seg Neutrophils # Seg Neutrophils # Man Lymphocytes # (Manual) Eosinophils # (Manual) PT INR D-Dimer Heparin Anti-Xa Level ABG pH POC ABG pCO2 POC ABG pO2 156.0 H ABG pO2 ABG HCO3 ABG O2 Saturation ABG Base Excess ABG Hemoglobin 9.6 L ABG Oxyhemoglobin 98.4 H ABG Sodium 135.9 L ABG Potassium ABG Chloride ABG Glucose 290 H Oxyhemoglobin Carboxyhemoglobin 0.4 L Sodium Potassium Chloride Carbon Dioxide BUN Creatinine Glucose POC Glucose 229 H 255 H Lactic Acid Calcium Ferritin AST ALT Lactate Dehydrogenase C-Reactive Protein Total Protein Albumin Triglycerides Arterial Blood Glucose 290 H Arterial Blood Ionized Calcium 4.5 L Urine Creatinine Urine Total Protein Vancomycin Trough Coronavirus (PCR) SARS-CoV-2 IgG Ab 08/01/20 08/01/20 08/01/20 04:46 05:30 05:30 WBC RBC 2.27 L Hgb 7.6 L Hct 20.9 L D MCH 34 H MCHC 37 H RDW Plt Count 85 L Lymph % (Auto) Lymph # (Auto) Seg Neutrophils % Seg Neuts % (Manual) 87.0 H Lymphocytes % (Manual) 2.0 L Eosinophils % (Manual) Nucleated RBC % 1.0 H Seg Neutrophils # Seg Neutrophils # Man Lymphocytes # (Manual) 0.1 L Eosinophils # (Manual) PT INR D-Dimer Heparin Anti-Xa Level ABG pH 7.462 H POC ABG pCO2 POC ABG pO2 70.2 L ABG pO2 ABG HCO3 ABG O2 Saturation ABG Base Excess ABG Hemoglobin 8.7 L ABG Oxyhemoglobin ABG Sodium 135.7 L ABG Potassium 3.3 L ABG Chloride ABG Glucose 275 H Oxyhemoglobin Carboxyhemoglobin Sodium 132 L D Potassium 2.8 L* D Chloride Carbon Dioxide BUN 47 H Creatinine Glucose 217 H POC Glucose Lactic Acid Calcium 6.6 L D Ferritin AST 117 H ALT 408 H Lactate Dehydrogenase C-Reactive Protein Total Protein 4.3 L D Albumin 0.6 L Triglycerides 2335 H Arterial Blood Glucose 275 H Arterial Blood Ionized Calcium 4.5 L Urine Creatinine Urine Total Protein Vancomycin Trough Coronavirus (PCR) SARS-CoV-2 IgG Ab 08/01/20 08/01/20 08/01/20 05:34 09:33 11:50 WBC RBC Hgb Hct MCH MCHC RDW Plt Count Lymph % (Auto) Lymph # (Auto) Seg Neutrophils % Seg Neuts % (Manual) Lymphocytes % (Manual) Eosinophils % (Manual) Nucleated RBC % Seg Neutrophils # Seg Neutrophils # Man Lymphocytes # (Manual) Eosinophils # (Manual) PT INR D-Dimer Heparin Anti-Xa Level ABG pH POC ABG pCO2 POC ABG pO2 ABG pO2 ABG HCO3 ABG O2 Saturation ABG Base Excess ABG Hemoglobin ABG Oxyhemoglobin ABG Sodium ABG Potassium ABG Chloride ABG Glucose Oxyhemoglobin Carboxyhemoglobin Sodium Potassium Chloride Carbon Dioxide BUN 57 H Creatinine Glucose 250 H POC Glucose 246 H 239 H Lactic Acid Calcium 8.2 L D Ferritin AST ALT Lactate Dehydrogenase C-Reactive Protein Total Protein Albumin Triglycerides 759 H Arterial Blood Glucose Arterial Blood Ionized Calcium Urine Creatinine Urine Total Protein Vancomycin Trough Coronavirus (PCR) SARS-CoV-2 IgG Ab 08/01/20 08/01/20 08/02/20 17:14 23:21 04:22 WBC RBC Hgb Hct MCH MCHC RDW Plt Count Lymph % (Auto) Lymph # (Auto) Seg Neutrophils % Seg Neuts % (Manual) Lymphocytes % (Manual) Eosinophils % (Manual) Nucleated RBC % Seg Neutrophils # Seg Neutrophils # Man Lymphocytes # (Manual) Eosinophils # (Manual) PT INR D-Dimer Heparin Anti-Xa Level ABG pH 7.268 L POC ABG pCO2 56.6 H POC ABG pO2 ABG pO2 ABG HCO3 ABG O2 Saturation ABG Base Excess ABG Hemoglobin 8.4 L ABG Oxyhemoglobin ABG Sodium ABG Potassium 4.9 H ABG Chloride ABG Glucose 261 H Oxyhemoglobin Carboxyhemoglobin Sodium Potassium Chloride Carbon Dioxide BUN Creatinine Glucose POC Glucose 219 H 242 H Lactic Acid Calcium Ferritin AST ALT Lactate Dehydrogenase C-Reactive Protein Total Protein Albumin Triglycerides Arterial Blood Glucose 261 H Arterial Blood Ionized Calcium Urine Creatinine Urine Total Protein Vancomycin Trough Coronavirus (PCR) SARS-CoV-2 IgG Ab 08/02/20 08/02/20 08/02/20 05:05 06:37 06:37 WBC RBC 3.40 L Hgb 10.0 L Hct MCH MCHC RDW 16.2 H Plt Count 87 L Lymph % (Auto) Lymph # (Auto) Seg Neutrophils % Seg Neuts % (Manual) 82.0 H Lymphocytes % (Manual) 3.0 L Eosinophils % (Manual) Nucleated RBC % 2.0 H Seg Neutrophils # Seg Neutrophils # Man 9.0 H Lymphocytes # (Manual) 0.3 L Eosinophils # (Manual) PT INR D-Dimer Heparin Anti-Xa Level ABG pH POC ABG pCO2 POC ABG pO2 ABG pO2 ABG HCO3 ABG O2 Saturation ABG Base Excess ABG Hemoglobin ABG Oxyhemoglobin ABG Sodium ABG Potassium ABG Chloride ABG Glucose Oxyhemoglobin Carboxyhemoglobin Sodium Potassium 5.3 H D Chloride Carbon Dioxide BUN 53 H Creatinine Glucose 267 H POC Glucose 254 H Lactic Acid Calcium 8.1 L Ferritin AST 43 H ALT 334 H Lactate Dehydrogenase C-Reactive Protein Total Protein 5.4 L D Albumin 1.9 L Triglycerides Arterial Blood Glucose Arterial Blood Ionized Calcium Urine Creatinine Urine Total Protein Vancomycin Trough Coronavirus (PCR) SARS-CoV-2 IgG Ab 08/02/20 08/02/20 08/02/20 06:37 11:34 17:04 WBC RBC Hgb Hct MCH MCHC RDW Plt Count Lymph % (Auto) Lymph # (Auto) Seg Neutrophils % Seg Neuts % (Manual) Lymphocytes % (Manual) Eosinophils % (Manual) Nucleated RBC % Seg Neutrophils # Seg Neutrophils # Man Lymphocytes # (Manual) Eosinophils # (Manual) PT INR D-Dimer Heparin Anti-Xa Level ABG pH POC ABG pCO2 POC ABG pO2 ABG pO2 ABG HCO3 ABG O2 Saturation ABG Base Excess ABG Hemoglobin ABG Oxyhemoglobin ABG Sodium ABG Potassium ABG Chloride ABG Glucose Oxyhemoglobin Carboxyhemoglobin Sodium Potassium Chloride Carbon Dioxide BUN Creatinine Glucose POC Glucose 279 H 256 H Lactic Acid Calcium Ferritin AST ALT Lactate Dehydrogenase C-Reactive Protein Total Protein Albumin Triglycerides 717 H Arterial Blood Glucose Arterial Blood Ionized Calcium Urine Creatinine Urine Total Protein Vancomycin Trough Coronavirus (PCR) SARS-CoV-2 IgG Ab 08/02/20 08/03/20 08/03/20 23:23 01:25 04:49 WBC 13.2 H RBC 2.83 L Hgb 8.4 L Hct 26.3 L MCH MCHC RDW 16.4 H Plt Count Lymph % (Auto) Lymph # (Auto) Seg Neutrophils % Seg Neuts % (Manual) Lymphocytes % (Manual) 2.0 L Eosinophils % (Manual) Nucleated RBC % 1.0 H Seg Neutrophils # Seg Neutrophils # Man 7.8 H Lymphocytes # (Manual) 0.3 L Eosinophils # (Manual) PT INR D-Dimer Heparin Anti-Xa Level ABG pH 7.302 L POC ABG pCO2 56.0 H POC ABG pO2 39.6 L ABG pO2 ABG HCO3 ABG O2 Saturation ABG Base Excess ABG Hemoglobin 9.1 L ABG Oxyhemoglobin ABG Sodium ABG Potassium 4.8 H ABG Chloride 108.0 H ABG Glucose 275 H Oxyhemoglobin Carboxyhemoglobin Sodium Potassium Chloride Carbon Dioxide BUN Creatinine Glucose POC Glucose 214 H Lactic Acid Calcium Ferritin AST ALT Lactate Dehydrogenase C-Reactive Protein Total Protein Albumin Triglycerides Arterial Blood Glucose 275 H Arterial Blood Ionized Calcium Urine Creatinine Urine Total Protein Vancomycin Trough Coronavirus (PCR) SARS-CoV-2 IgG Ab 08/03/20 08/03/20 08/03/20 04:49 04:49 05:11 WBC RBC Hgb Hct MCH MCHC RDW Plt Count Lymph % (Auto) Lymph # (Auto) Seg Neutrophils % Seg Neuts % (Manual) Lymphocytes % (Manual) Eosinophils % (Manual) Nucleated RBC % Seg Neutrophils # Seg Neutrophils # Man Lymphocytes # (Manual) Eosinophils # (Manual) PT INR D-Dimer Heparin Anti-Xa Level ABG pH POC ABG pCO2 POC ABG pO2 ABG pO2 ABG HCO3 ABG O2 Saturation ABG Base Excess ABG Hemoglobin ABG Oxyhemoglobin ABG Sodium ABG Potassium ABG Chloride ABG Glucose Oxyhemoglobin Carboxyhemoglobin Sodium Potassium Chloride Carbon Dioxide BUN 39 H Creatinine Glucose 263 H POC Glucose 230 H Lactic Acid Calcium 8.1 L Ferritin AST ALT 242 H Lactate Dehydrogenase C-Reactive Protein Total Protein 5.4 L Albumin 2.2 L Triglycerides 500 H Arterial Blood Glucose Arterial Blood Ionized Calcium Urine Creatinine Urine Total Protein Vancomycin Trough Coronavirus (PCR) SARS-CoV-2 IgG Ab 08/03/20 08/03/20 08/03/20 11:55 17:07 23:25 WBC RBC Hgb Hct MCH MCHC RDW Plt Count Lymph % (Auto) Lymph # (Auto) Seg Neutrophils % Seg Neuts % (Manual) Lymphocytes % (Manual) Eosinophils % (Manual) Nucleated RBC % Seg Neutrophils # Seg Neutrophils # Man Lymphocytes # (Manual) Eosinophils # (Manual) PT INR D-Dimer Heparin Anti-Xa Level ABG pH POC ABG pCO2 POC ABG pO2 ABG pO2 ABG HCO3 ABG O2 Saturation ABG Base Excess ABG Hemoglobin ABG Oxyhemoglobin ABG Sodium ABG Potassium ABG Chloride ABG Glucose Oxyhemoglobin Carboxyhemoglobin Sodium Potassium Chloride Carbon Dioxide BUN Creatinine Glucose POC Glucose 238 H 205 H 211 H Lactic Acid Calcium Ferritin AST ALT Lactate Dehydrogenase C-Reactive Protein Total Protein Albumin Triglycerides Arterial Blood Glucose Arterial Blood Ionized Calcium Urine Creatinine Urine Total Protein Vancomycin Trough Coronavirus (PCR) SARS-CoV-2 IgG Ab 08/04/20 08/04/20 08/04/20 03:16 05:31 12:07 WBC RBC Hgb Hct MCH MCHC RDW Plt Count Lymph % (Auto) Lymph # (Auto) Seg Neutrophils % Seg Neuts % (Manual) Lymphocytes % (Manual) Eosinophils % (Manual) Nucleated RBC % Seg Neutrophils # Seg Neutrophils # Man Lymphocytes # (Manual) Eosinophils # (Manual) PT INR D-Dimer Heparin Anti-Xa Level ABG pH 7.154 L POC ABG pCO2 80.7 H POC ABG pO2 ABG pO2 ABG HCO3 ABG O2 Saturation ABG Base Excess ABG Hemoglobin 8.5 L ABG Oxyhemoglobin ABG Sodium ABG Potassium 5.1 H ABG Chloride 109.0 H ABG Glucose 226 H Oxyhemoglobin Carboxyhemoglobin Sodium Potassium Chloride Carbon Dioxide BUN Creatinine Glucose POC Glucose 201 H 213 H Lactic Acid Calcium Ferritin AST ALT Lactate Dehydrogenase C-Reactive Protein Total Protein Albumin Triglycerides Arterial Blood Glucose 226 H Arterial Blood Ionized Calcium Urine Creatinine Urine Total Protein Vancomycin Trough Coronavirus (PCR) SARS-CoV-2 IgG Ab 08/04/20 08/04/20 08/04/20 17:39 23:17 Unknown WBC RBC 2.38 L Hgb 7.1 L Hct 22.4 L MCH MCHC RDW 16.5 H Plt Count Lymph % (Auto) Lymph # (Auto) Seg Neutrophils % Seg Neuts % (Manual) Lymphocytes % (Manual) 1.0 L Eosinophils % (Manual) Nucleated RBC % Seg Neutrophils # Seg Neutrophils # Man Lymphocytes # (Manual) 0.1 L Eosinophils # (Manual) PT INR D-Dimer Heparin Anti-Xa Level ABG pH POC ABG pCO2 POC ABG pO2 ABG pO2 ABG HCO3 ABG O2 Saturation ABG Base Excess ABG Hemoglobin ABG Oxyhemoglobin ABG Sodium ABG Potassium ABG Chloride ABG Glucose Oxyhemoglobin Carboxyhemoglobin Sodium Potassium Chloride Carbon Dioxide BUN Creatinine Glucose POC Glucose 155 H 107 H Lactic Acid Calcium Ferritin AST ALT Lactate Dehydrogenase C-Reactive Protein Total Protein Albumin Triglycerides Arterial Blood Glucose Arterial Blood Ionized Calcium Urine Creatinine Urine Total Protein Vancomycin Trough Coronavirus (PCR) SARS-CoV-2 IgG Ab 08/04/20 08/05/20 08/05/20 Unknown 05:14 05:50 WBC RBC Hgb Hct MCH MCHC RDW Plt Count Lymph % (Auto) Lymph # (Auto) Seg Neutrophils % Seg Neuts % (Manual) Lymphocytes % (Manual) Eosinophils % (Manual) Nucleated RBC % Seg Neutrophils # Seg Neutrophils # Man Lymphocytes # (Manual) Eosinophils # (Manual) PT INR D-Dimer Heparin Anti-Xa Level ABG pH POC ABG pCO2 51.7 H POC ABG pO2 63.3 L ABG pO2 ABG HCO3 ABG O2 Saturation ABG Base Excess ABG Hemoglobin 9.9 L ABG Oxyhemoglobin ABG Sodium 146.9 H ABG Potassium ABG Chloride 113.0 H ABG Glucose 112 H Oxyhemoglobin Carboxyhemoglobin Sodium Potassium Chloride 113.1 H Carbon Dioxide BUN 27 H Creatinine 0.5 L Glucose 190 H POC Glucose 126 H Lactic Acid Calcium 7.5 L Ferritin AST ALT 134 H Lactate Dehydrogenase C-Reactive Protein Total Protein 4.7 L Albumin 2.2 L Triglycerides Arterial Blood Glucose 112 H Arterial Blood Ionized Calcium Urine Creatinine Urine Total Protein Vancomycin Trough Coronavirus (PCR) SARS-CoV-2 IgG Ab 08/05/20 08/05/20 08/05/20 08:30 08:30 11:19 WBC 16.5 H RBC 2.79 L Hgb 8.3 L Hct 26.1 L MCH MCHC RDW 16.7 H Plt Count Lymph % (Auto) Lymph # (Auto) Seg Neutrophils % Seg Neuts % (Manual) Lymphocytes % (Manual) 6.0 L Eosinophils % (Manual) Nucleated RBC % Seg Neutrophils # Seg Neutrophils # Man 10.1 H Lymphocytes # (Manual) 1.0 L Eosinophils # (Manual) PT INR D-Dimer Heparin Anti-Xa Level ABG pH POC ABG pCO2 POC ABG pO2 ABG pO2 ABG HCO3 ABG O2 Saturation ABG Base Excess ABG Hemoglobin ABG Oxyhemoglobin ABG Sodium ABG Potassium ABG Chloride ABG Glucose Oxyhemoglobin Carboxyhemoglobin Sodium 149 H Potassium Chloride 112.9 H Carbon Dioxide 32 H D BUN 25 H Creatinine Glucose 184 H POC Glucose 185 H Lactic Acid Calcium Ferritin AST ALT 115 H Lactate Dehydrogenase C-Reactive Protein Total Protein 5.5 L Albumin 2.3 L Triglycerides Arterial Blood Glucose Arterial Blood Ionized Calcium Urine Creatinine Urine Total Protein Vancomycin Trough Coronavirus (PCR) SARS-CoV-2 IgG Ab 08/05/20 08/05/20 08/05/20 13:35 13:35 13:35 WBC RBC Hgb 7.7 L Hct 24.6 L MCH MCHC RDW Plt Count Lymph % (Auto) Lymph # (Auto) Seg Neutrophils % Seg Neuts % (Manual) Lymphocytes % (Manual) Eosinophils % (Manual) Nucleated RBC % Seg Neutrophils # Seg Neutrophils # Man Lymphocytes # (Manual) Eosinophils # (Manual) PT 15.4 H INR 1.22 H D-Dimer 4748.32 H Heparin Anti-Xa Level ABG pH POC ABG pCO2 POC ABG pO2 ABG pO2 ABG HCO3 ABG O2 Saturation ABG Base Excess ABG Hemoglobin ABG Oxyhemoglobin ABG Sodium ABG Potassium ABG Chloride ABG Glucose Oxyhemoglobin Carboxyhemoglobin Sodium Potassium Chloride Carbon Dioxide BUN Creatinine Glucose POC Glucose Lactic Acid Calcium Ferritin AST ALT Lactate Dehydrogenase C-Reactive Protein 26.40 H Total Protein Albumin Triglycerides 337 H Arterial Blood Glucose Arterial Blood Ionized Calcium Urine Creatinine Urine Total Protein Vancomycin Trough Coronavirus (PCR) SARS-CoV-2 IgG Ab 08/05/20 08/05/20 08/05/20 16:56 20:07 23:29 WBC RBC Hgb Hct MCH MCHC RDW Plt Count Lymph % (Auto) Lymph # (Auto) Seg Neutrophils % Seg Neuts % (Manual) Lymphocytes % (Manual) Eosinophils % (Manual) Nucleated RBC % Seg Neutrophils # Seg Neutrophils # Man Lymphocytes # (Manual) Eosinophils # (Manual) PT INR D-Dimer Heparin Anti-Xa Level ABG pH POC ABG pCO2 POC ABG pO2 ABG pO2 ABG HCO3 ABG O2 Saturation ABG Base Excess ABG Hemoglobin ABG Oxyhemoglobin ABG Sodium ABG Potassium ABG Chloride ABG Glucose Oxyhemoglobin Carboxyhemoglobin Sodium Potassium Chloride Carbon Dioxide BUN Creatinine Glucose POC Glucose 120 H 156 H Lactic Acid Calcium Ferritin AST ALT Lactate Dehydrogenase C-Reactive Protein Total Protein Albumin Triglycerides Arterial Blood Glucose Arterial Blood Ionized Calcium Urine Creatinine Urine Total Protein Vancomycin Trough 27.0 H Coronavirus (PCR) SARS-CoV-2 IgG Ab 08/06/20 08/06/20 08/06/20 04:00 04:00 05:32 WBC 12.6 H RBC 2.40 L Hgb 7.2 L Hct 22.4 L MCH MCHC RDW 16.9 H Plt Count Lymph % (Auto) Lymph # (Auto) Seg Neutrophils % Seg Neuts % (Manual) 86.0 H Lymphocytes % (Manual) 5.0 L Eosinophils % (Manual) Nucleated RBC % Seg Neutrophils # Seg Neutrophils # Man 10.8 H Lymphocytes # (Manual) 0.6 L Eosinophils # (Manual) PT INR D-Dimer Heparin Anti-Xa Level ABG pH POC ABG pCO2 POC ABG pO2 ABG pO2 ABG HCO3 ABG O2 Saturation ABG Base Excess ABG Hemoglobin ABG Oxyhemoglobin ABG Sodium ABG Potassium ABG Chloride ABG Glucose Oxyhemoglobin Carboxyhemoglobin Sodium 147 H Potassium Chloride 112.5 H Carbon Dioxide BUN 27 H Creatinine Glucose 193 H POC Glucose 155 H Lactic Acid Calcium 8.3 L Ferritin AST ALT 77 H Lactate Dehydrogenase C-Reactive Protein Total Protein 5.0 L Albumin 2.2 L Triglycerides Arterial Blood Glucose Arterial Blood Ionized Calcium Urine Creatinine Urine Total Protein Vancomycin Trough Coronavirus (PCR) SARS-CoV-2 IgG Ab 08/06/20 08/06/20 08/06/20 09:31 11:55 17:44 WBC RBC Hgb Hct MCH MCHC RDW Plt Count Lymph % (Auto) Lymph # (Auto) Seg Neutrophils % Seg Neuts % (Manual) Lymphocytes % (Manual) Eosinophils % (Manual) Nucleated RBC % Seg Neutrophils # Seg Neutrophils # Man Lymphocytes # (Manual) Eosinophils # (Manual) PT INR D-Dimer Heparin Anti-Xa Level ABG pH POC ABG pCO2 POC ABG pO2 ABG pO2 ABG HCO3 ABG O2 Saturation ABG Base Excess ABG Hemoglobin ABG Oxyhemoglobin ABG Sodium ABG Potassium ABG Chloride ABG Glucose Oxyhemoglobin Carboxyhemoglobin Sodium Potassium Chloride Carbon Dioxide BUN Creatinine Glucose POC Glucose 140 H 151 H 132 H Lactic Acid Calcium Ferritin AST ALT Lactate Dehydrogenase C-Reactive Protein Total Protein Albumin Triglycerides Arterial Blood Glucose Arterial Blood Ionized Calcium Urine Creatinine Urine Total Protein Vancomycin Trough Coronavirus (PCR) SARS-CoV-2 IgG Ab 08/06/20 08/06/20 08/06/20 21:11 23:21 Unknown WBC RBC Hgb Hct MCH MCHC RDW Plt Count Lymph % (Auto) Lymph # (Auto) Seg Neutrophils % Seg Neuts % (Manual) Lymphocytes % (Manual) Eosinophils % (Manual) Nucleated RBC % Seg Neutrophils # Seg Neutrophils # Man Lymphocytes # (Manual) Eosinophils # (Manual) PT INR D-Dimer Heparin Anti-Xa Level ABG pH POC ABG pCO2 49.3 H 50.5 H POC ABG pO2 62.1 L 70.5 L ABG pO2 ABG HCO3 ABG O2 Saturation ABG Base Excess ABG Hemoglobin 8.6 L 8.3 L ABG Oxyhemoglobin 90.2 L ABG Sodium ABG Potassium ABG Chloride 111.0 H 113.0 H ABG Glucose 171 H 204 H Oxyhemoglobin Carboxyhemoglobin 1.7 H Sodium Potassium Chloride Carbon Dioxide BUN Creatinine Glucose POC Glucose 160 H Lactic Acid Calcium Ferritin AST ALT Lactate Dehydrogenase C-Reactive Protein Total Protein Albumin Triglycerides Arterial Blood Glucose 171 H 204 H Arterial Blood Ionized Calcium Urine Creatinine Urine Total Protein Vancomycin Trough Coronavirus (PCR) SARS-CoV-2 IgG Ab 08/07/20 08/07/20 08/07/20 02:06 02:06 04:00 WBC 18.0 H RBC 2.91 L Hgb 8.5 L Hct 27.2 L MCH MCHC RDW 17.7 H Plt Count Lymph % (Auto) 5.3 L Lymph # (Auto) 1.0 L Seg Neutrophils % Seg Neuts % (Manual) Lymphocytes % (Manual) Eosinophils % (Manual) Nucleated RBC % Seg Neutrophils # 16.6 H Seg Neutrophils # Man Lymphocytes # (Manual) Eosinophils # (Manual) PT INR D-Dimer Heparin Anti-Xa Level ABG pH POC ABG pCO2 POC ABG pO2 ABG pO2 111.4 H ABG HCO3 27.6 H ABG O2 Saturation ABG Base Excess ABG Hemoglobin 8.5 L ABG Oxyhemoglobin ABG Sodium ABG Potassium ABG Chloride ABG Glucose Oxyhemoglobin Carboxyhemoglobin Sodium 146 H Potassium Chloride 110.9 H Carbon Dioxide BUN 27 H Creatinine 0.5 L Glucose 187 H POC Glucose Lactic Acid Calcium Ferritin AST ALT Lactate Dehydrogenase C-Reactive Protein Total Protein Albumin Triglycerides Arterial Blood Glucose Arterial Blood Ionized Calcium Urine Creatinine Urine Total Protein Vancomycin Trough Coronavirus (PCR) SARS-CoV-2 IgG Ab 08/07/20 08/07/20 08/07/20 05:28 11:15 12:09 WBC RBC Hgb Hct MCH MCHC RDW Plt Count Lymph % (Auto) Lymph # (Auto) Seg Neutrophils % Seg Neuts % (Manual) Lymphocytes % (Manual) Eosinophils % (Manual) Nucleated RBC % Seg Neutrophils # Seg Neutrophils # Man Lymphocytes # (Manual) Eosinophils # (Manual) PT INR D-Dimer Heparin Anti-Xa Level 0.15 L ABG pH POC ABG pCO2 POC ABG pO2 ABG pO2 ABG HCO3 ABG O2 Saturation ABG Base Excess ABG Hemoglobin ABG Oxyhemoglobin ABG Sodium ABG Potassium ABG Chloride ABG Glucose Oxyhemoglobin Carboxyhemoglobin Sodium Potassium Chloride Carbon Dioxide BUN Creatinine Glucose POC Glucose 161 H 191 H Lactic Acid Calcium Ferritin AST ALT Lactate Dehydrogenase C-Reactive Protein Total Protein Albumin Triglycerides Arterial Blood Glucose Arterial Blood Ionized Calcium Urine Creatinine Urine Total Protein Vancomycin Trough Coronavirus (PCR) SARS-CoV-2 IgG Ab 08/07/20 08/07/20 08/07/20 18:25 22:31 23:39 WBC RBC Hgb Hct MCH MCHC RDW Plt Count Lymph % (Auto) Lymph # (Auto) Seg Neutrophils % Seg Neuts % (Manual) Lymphocytes % (Manual) Eosinophils % (Manual) Nucleated RBC % Seg Neutrophils # Seg Neutrophils # Man Lymphocytes # (Manual) Eosinophils # (Manual) PT INR D-Dimer Heparin Anti-Xa Level 0.25 L ABG pH POC ABG pCO2 POC ABG pO2 ABG pO2 ABG HCO3 ABG O2 Saturation ABG Base Excess ABG Hemoglobin ABG Oxyhemoglobin ABG Sodium ABG Potassium ABG Chloride ABG Glucose Oxyhemoglobin Carboxyhemoglobin Sodium Potassium Chloride Carbon Dioxide BUN Creatinine Glucose POC Glucose 195 H 220 H Lactic Acid Calcium Ferritin AST ALT Lactate Dehydrogenase C-Reactive Protein Total Protein Albumin Triglycerides Arterial Blood Glucose Arterial Blood Ionized Calcium Urine Creatinine Urine Total Protein Vancomycin Trough Coronavirus (PCR) SARS-CoV-2 IgG Ab 08/08/20 08/08/20 08/08/20 05:54 11:56 18:22 WBC RBC Hgb Hct MCH MCHC RDW Plt Count Lymph % (Auto) Lymph # (Auto) Seg Neutrophils % Seg Neuts % (Manual) Lymphocytes % (Manual) Eosinophils % (Manual) Nucleated RBC % Seg Neutrophils # Seg Neutrophils # Man Lymphocytes # (Manual) Eosinophils # (Manual) PT INR D-Dimer Heparin Anti-Xa Level ABG pH POC ABG pCO2 POC ABG pO2 ABG pO2 ABG HCO3 ABG O2 Saturation ABG Base Excess ABG Hemoglobin ABG Oxyhemoglobin ABG Sodium ABG Potassium ABG Chloride ABG Glucose Oxyhemoglobin Carboxyhemoglobin Sodium Potassium Chloride Carbon Dioxide BUN Creatinine Glucose POC Glucose 232 H 155 H 134 H Lactic Acid Calcium Ferritin AST ALT Lactate Dehydrogenase C-Reactive Protein Total Protein Albumin Triglycerides Arterial Blood Glucose Arterial Blood Ionized Calcium Urine Creatinine Urine Total Protein Vancomycin Trough Coronavirus (PCR) SARS-CoV-2 IgG Ab 08/09/20 08/09/20 05:38 05:38 WBC RBC Hgb Hct MCH MCHC RDW Plt Count Lymph % (Auto) Lymph # (Auto) Seg Neutrophils % Seg Neuts % (Manual) Lymphocytes % (Manual) Eosinophils % (Manual) Nucleated RBC % Seg Neutrophils # Seg Neutrophils # Man Lymphocytes # (Manual) Eosinophils # (Manual) PT INR D-Dimer Heparin Anti-Xa Level ABG pH POC ABG pCO2 52.0 H POC ABG pO2 54.1 L ABG pO2 ABG HCO3 ABG O2 Saturation ABG Base Excess ABG Hemoglobin 10.2 L ABG Oxyhemoglobin ABG Sodium ABG Potassium ABG Chloride 108.0 H ABG Glucose 124 H Oxyhemoglobin Carboxyhemoglobin Sodium Potassium Chloride Carbon Dioxide BUN Creatinine Glucose POC Glucose 130 H Lactic Acid Calcium Ferritin AST ALT Lactate Dehydrogenase C-Reactive Protein Total Protein Albumin Triglycerides Arterial Blood Glucose 124 H Arterial Blood Ionized Calcium Urine Creatinine Urine Total Protein Vancomycin Trough Coronavirus (PCR) SARS-CoV-2 IgG Ab Allied health notes reviewed: nursing
[2020-08-09 13:10] LABS: Hematocrit 28.4 % (30.3-42.9); Hemoglobin 8.9 gm/dl (10.1-14.3)
[2020-08-09 14:56] LABS: Blood Urea Nitrogen 22 mg/dL (7-17); Calcium 8.4 mg/dL (8.4-10.2); Hemolysis Index 11
[2020-08-09 14:58] LABS: BUN/Creatinine Ratio 31
[2020-08-09] MEDS: methylPREDNISolone Sod Succinate 40 MG/1 ML INJ IV SCH ×2 (15:03→22:27)
[2020-08-09] MEDS: ACETAMINOPHEN 325 MG TAB PO PRN (18:16)
[2020-08-09] MEDS: fentaNYL 100 MCG/2 ML INJ IV PRN (18:16)
[2020-08-09] MEDS ORDERED: SODIUM CHLORIDE 0.9% 1000 ML 1,000 ML IV ONE (19:34)
[2020-08-09] MEDS: NORepinephrine/NS 4 MG-250 ML 4 MG/250 ML BAG IV SCH (22:31)
[2020-08-10] MEDS: PROPOFOL 500 MG/50 ML VIAL IV SCH ×6 (00:26→22:46)
[2020-08-10] MEDS: MIDAZOLAM 100 MG in SODIUM CHLORIDE 0.9% 80 ML IV SCH ×2 (00:28→21:18)
[2020-08-10] MEDS: METOCLOPRAMIDE 10 MG/2 ML INJ IV SCH ×3 (00:29→13:40)
[2020-08-10] MEDS: fentaNYL DRIP Premix 2,000 MCG/100 ML BAG IV SCH ×2 (00:59→06:25)
[2020-08-10] MEDS: HEPARIN/ 0.45% NACL DRIP 25,000 UNIT/500 ML BAG IV SCH (03:03)
[2020-08-10] MEDS: GABAPENTIN 300 MG CAP PO SCH ×3 (06:25→21:20)
[2020-08-10] MEDS: chlordiazePOXIDE 25 MG CAP PO SCH ×3 (06:34→21:20)
[2020-08-10] MEDS: methylPREDNISolone Sod Succinate 40 MG/1 ML INJ IV SCH ×4 (06:35→22:44)
[2020-08-10] MEDS: INSULIN REGULAR, HUMAN 100 UNIT/ML 3ML VIAL SUB-Q SCH ×3 (06:36→20:31)
[2020-08-10 08:04] LABS: Hematocrit 24.6 % (30.3-42.9); Hemoglobin 7.8 gm/dl (10.1-14.3); Mean Corpuscular HGB Conc 32 % (30-34); Mean Corpuscular Volume 93 fl (79-97); Platelet Count 232 K/mm3 (140-440); Red Blood Count 2.63 M/mm3 (3.65-5.03); Red Cell Distribution Width 17.9 % (13.2-15.2)
[2020-08-10 08:21] LABS: Alanine Aminotransferase 36 units/L (7-56); Albumin 2.3 g/dL (3.9-5); BUN/Creatinine Ratio 34; Blood Urea Nitrogen 27 mg/dL (7-17); Calcium 8.4 mg/dL (8.4-10.2); Hemolysis Index 0
--- NOTE | 2020-08-10 08:42 | Progress Note ---
Assessment and Plan Assessment and plan: -Severe COVID-19 PNA -On vent. Sedated -Completed steroids and remdesivir -ID following -- Acute hypoxic respiratory failure Mechanically ventilated Continue antibiotics for MRSA sputum. --- Ventilator associated pneumonia from MRSA and E. coli Continue cefepime and vancomycin ID following ---Sinus tachycardia Possible PE. D-dimer >4k Started on full dose anticoagulation Plan to do Cta chest when stable Monitor hemoglobin --Pneumothorax and subcutaneous emphysema Chest x-ray today shows improvement in pneumothorax and bilateral opacities. Continue chest tube management as per a r specialist Surgery recommendations appreciated -- GERD (gastroesophageal reflux disease) cont Pantoprazole --SLE (systemic lupus erythematosus related syndrome) Continue home medications-hydroxychloroquine -- DVT prophylaxis Heparin drip for possible PE. -- Full code status brief History: 50-year-old female with a past medical history of asthma, hypertension, and lupus complains of generalized body weakness, fever and shortness of breath. Patient states the symptoms started right after she was discharged from [facility] on 07/05. She has associated wheezing, fever, cough and she has been using her inhalers with no significant effect. She also has associated diarrhea. Of note, she was hospitalized here in [facility] on 06/28 for asthma exacerbation and had a negative Covid test during the admission. She was treated and discharged. She presented to [facility] for further evaluation after discharge from here and over there, she was found to have positive COVID-19 test and she was placed on steroids and subsequently discharged on Eliquis prophylaxis for DVT. She states that she did not receive remdesivir during the admission. She was discharged from [facility] on 07/05. She went home and felt worse. She said that she passed out about 2 times. Due to persistent symptoms, she called EMS who brought her to [facility] for further evaluation. Daily course: 07/07. Patient seen and examined at bedside this morning. Patient is wheezing and slightly short of breath. Change steroids to Solu-Medrol 60 every 6. Added formoterol and budesonide. ID evaluation pending. Started patient on remdesivir as she is short of breath. 07/07: Placed on BIPAP this AM. Will need pulm evaluation. Solumedrol 60mg q6. STAT blood gas ordered. She will be transferred to [facility]. 07/08: Patient took oxygen off and attempts to go to the bathroom and subsequently became hypoxemic with sats down into the low 80s. Patient became weak short of breath. After that time patient had persistent coughing and cannot maintain sats until nonrebreather was placed. Patient is transferred to the ICU unit and monitored for respiratory failure possibly requiring intubation. 07/09: ID recommended for convalescent plasma, ordered. Patient intubated overnight. Continue to monitor clinically, scheduled lab, follow inflammatory markers 07/10: Wait for convalescent plasma transfusion, wean off from ventilator as tolerated 07/11: Called patient's daughter and updated. Continue to wean off vent as tolerated, continue tube feeding, monitor vital sign CBC BMP daily. 07/12: remains intubated and sedated. follow inflammatory markers - wean off vent as tolerated 07/13: wean off vent as tolerated, cxr in the am. reviewed vitals 07/14: remains intubated, has not received convalescent plasma yet. Reviewed vitals, tolerating tube feeding. Wean off vent per critical care as tolerated. 07/15: cont to provide supportive care, wean off vent as tolerated - difficult to wean off. 07/16: CXR findings improving, cont to wean off vent 07/17: Follow inflammatory markers, monitor off antibiotics. Wean off vent per pulmonary as tolerated 07/18: Wean off vent per pulmonary as tolerated,Follow inflammatory markers, monitor off antibiotics. 07/19: Wean off vent per pulmonary as tolerated,Follow inflammatory markers, monitor off antibiotics. SBT trial 07/20: Wean off vent as tolerated, continue supportive care, follow inflammatory markers 07/21: continue supportive care, follow inflammatory markers, wean off vent as tolerated 07/22: Continue to wean off from ventilator as tolerated per pulmonary recommendation, follow inflammatory markers. Repeat CBC BMP in the morning. We will repeat Covid test tomorrow to see if patient cleared the infection. 07/23. Continue to wean off from ventilator as tolerated per pulmonary recommendation, follow inflammatory markers. Currently AC mode, rate 16, tidal volume 450 with FiO2 75%vand PEEP 14 07/24/2020. Continue ventilatory support with AC mode, rate 16, tidal volume 450, FiO2 100% and PEEP of 16. Continue Brovana and Pulmicort. Continue IV steroids 40 mg IV every 8 hours. Anticoagulation with Lovenox 30 mg twice daily. Patient currently sedated with Versed and fentanyl. 07/25/2020. Continue ventilatory support with AC mode, rate 16, tidal volume 450, FiO2 75% and PEEP of 16. Continue Brovana and Pulmicort. Continue IV steroids 40 mg IV every 8 hours. Anticoagulation with Lovenox 30 mg twice daily. Patient currently sedated with Versed and fentanyl. Continue to wean per pulmonary recommendations. 07/26/2020. Continue ventilatory support with AC mode, rate 16, tidal volume 450, FiO2 85% and PEEP of 16. Continue Brovana and Pulmicort. Continue IV steroids 40 mg IV every 8 hours. Anticoagulation with Lovenox 30 mg twice daily. Patient currently sedated with Versed and fentanyl. Continue to wean per protocol. 07/27/2020. Continue ventilatory support with AC mode, rate 16, tidal volume 450, FiO2 100% and PEEP of 16. Patient with increased oxygen requirements the past couple of days. Continue Brovana and Pulmicort. Continue IV steroids 40 mg IV every 8 hours. Anticoagulation with Lovenox 30 mg twice daily. Patient currently sedated with Versed and fentanyl. Dose of Lasix given by pulmonary yesterday to achieve negative fluid balance. Follow-up serial chest x-ray 07/28/2020. Continue ventilatory support with AC mode, rate 16, tidal volume 450, FiO2 100% and PEEP of 16. Wean FiO2 per protocol. Continue Brovana and Pulmicort. Continue IV steroids 40 mg IV every 8 hours. Anticoagulation with Lovenox 30 mg twice daily. Patient currently sedated with Versed and fentanyl. 07/29/2020. Continue ventilatory support with AC mode, rate 16, tidal volume 450, FiO2 100% and PEEP of 16. Wean FiO2 per protocol. Continue Brovana and Pulmicort. Continue IV steroids 40 mg IV every 8 hours. Anticoagulation with Lovenox 30 mg twice daily. Wean sedation as tolerated. 07/30. Continue ventilatory support with AC mode, rate 16, tidal volume 450, FiO2 100% and PEEP of 16. Wean FiO2 per protocol. Continue Brovana and Pulmicort. Continue IV steroids 40 mg IV every 8 hours. Anticoagulation with Lovenox 30 mg twice daily. Wean sedation as tolerated. 07/31. Still ventilated. On sedatives. Renal function worse today. nephrology has been consulted. Started patient on IV hydration. BC - GN rods and staph aureus. She is on vancomycin. 08/01. Still ventilated. On sedatives. Renal function worse today. nephrology has been consulted. Started patient on IV hydration. BC - GN rods and staph aureus. She is on vancomycin. 08/02. Chest xray shows worsening pneumothorax. Chest tube in place. On vent and sedated 08/03. Continue ventilatory support with AC mode, rate 30, tidal volume 4000, FiO2 100% and PEEP of 16. Wean FiO2 per protocol. Continue Brovana and Pulmicort. Anticoagulation with Lovenox 30 mg twice daily. Wean sedation as tolerated. 08/04. Now has a left chest tube in place due to worsening pneumothorax. She also has subcutaneous emphysema. ID on board - on IV antibiotics-cefepime and vancomycin. ID following. 08/05. Patient is more tachycardic today with heart rate in 130s overnight. Chest x-ray shows improvement in pneumothoraces and bilateral opacities. Patient likely has a PE. Patient has been started on full anticoagulation. Still maintained on IV antibiotics. Continue ventilatory support. 08/06/2020; patient's Covid positive, pneumothorax on chest tube. Patient is likely has PE and started on heparin drip. Patient is intubated and sedated and pulmonary is following. 08/07/2020; patient's Covid positive, pneumothorax on chest tube. Patient is likely has PE and started on heparin drip. Patient is intubated and sedated and pulmonary is following. 08/08/2020; patient's Covid positive, pneumothorax on chest tube. Patient is likely has PE and started on heparin drip. Patient is intubated and sedated and pulmonary is following. 08/09/2020; patient is Covid positive, pneumothorax and on chest tubes. Patient likely has PE and on heparin drip. Patient is intubated and sedated. Pulmonary critical care is following the patient. The high probability of a clinically significant, sudden or life threatening deterioration of the [[employer], respiratory, LIBRARY AIDE] system(s) required my full and direct attention, intervention and personal management. The aggregate critical care time was [32] minutes. This time is in addition to time spent performing reported procedures but includes the following: [x] Data Review and interpretation [x] Patient assessment and monitoring of vital signs [x] Documentation [x] Medication orders and management History Interval history: Patient was seen and evaluated this morning patient is intubated and on mechanical ventilation Hospitalist Physical - Physical exam Narrative exam: Patient is intubated and on mechanical ventilation, FiO2 60%, sedated The patient appeared well nourished and normally developed. Vital signs as documented. Head exam is unremarkable. No scleral icterus . Neck is without jugular venous distension, thyromegaly, or carotid bruits. Lungs are clear to auscultation. Cardiac exam reveals regular rate and Rhythm. Abdominal exam reveals normal bowel sounds, nontender, no organomegaly. Extremities are nonedematous and both femoral and pedal pulses are normal. LIBRARY AIDE: Sedated - Constitutional Vitals: Temp Pulse Resp BP Pulse Ox 98.6 F 107 H 19 125/74 98 08/10/20 03:39 08/10/20 06:46 08/10/20 06:46 08/10/20 06:46 08/10/20 06:46 General appearance: Present: no acute distress, well-nourished Results - Labs CBC & Chem 7: 08/10/20 05:00 08/10/20 05:00 Labs: Laboratory Last Values WBC 14.6 K/mm3 (4.5-11.0) H 08/10/20 05:00 RBC 2.63 M/mm3 (3.65-5.03) L 08/10/20 05:00 Hgb 7.8 gm/dl (10.1-14.3) L 08/10/20 05:00 Hct 24.6 % (30.3-42.9) L 08/10/20 05:00 MCV 93 fl (79-97) 08/10/20 05:00 MCH 30 pg (28-32) 08/10/20 05:00 MCHC 32 % (30-34) 08/10/20 05:00 RDW 17.9 % (13.2-15.2) H 08/10/20 05:00 Plt Count 232 K/mm3 (140-440) 08/10/20 05:00 Lymph % (Auto) 5.3 % (13.4-35.0) L 08/07/20 02:06 Sandoval % (Auto) 1.8 % (0.0-7.3) 08/07/20 02:06 Eos % (Auto) 0.3 % (0.0-4.3) 08/07/20 02:06 Baso % (Auto) 0.5 % (0.0-1.8) 08/07/20 02:06 Lymph # (Auto) 1.0 K/mm3 (1.2-5.4) L 08/07/20 02:06 Sandoval # (Auto) 0.3 K/mm3 (0.0-0.8) 08/07/20 02:06 Eos # (Auto) 0.1 K/mm3 (0.0-0.4) 08/07/20 02:06 Baso # (Auto) 0.1 K/mm3 (0.0-0.1) 08/07/20 02:06 Add Manual Diff Complete 08/06/20 04:00 Total Counted 100 08/06/20 04:00 Seg Neutrophils % Bit Sharpener 08/07/20 02:06 Seg Neuts % (Manual) 86.0 % (40.0-70.0) H 08/06/20 04:00 Band Neutrophils % 4.0 % 08/06/20 04:00 Lymphocytes % (Manual) 5.0 % (13.4-35.0) L 08/06/20 04:00 Reactive Lymphs % (Man) 0 % 08/06/20 04:00 Monocytes % (Manual) 2.0 % (0.0-7.3) 08/06/20 04:00 Eosinophils % (Manual) 0 % (0.0-4.3) 08/06/20 04:00 Basophils % (Manual) 0 % (0.0-1.8) 08/06/20 04:00 Metamyelocytes % 3.0 % 08/06/20 04:00 Myelocytes % 0 % 08/06/20 04:00 Promyelocytes % 0 % 08/06/20 04:00 Blast Cells % 0 % 08/06/20 04:00 Nucleated RBC % Not Reportable 08/06/20 04:00 Seg Neutrophils # 16.6 K/mm3 (1.8-7.7) H 08/07/20 02:06 Seg Neutrophils # Man 10.8 K/mm3 (1.8-7.7) H 08/06/20 04:00 Band Neutrophils # 0.5 K/mm3 08/06/20 04:00 Lymphocytes # (Manual) 0.6 K/mm3 (1.2-5.4) L 08/06/20 04:00 Abs React Lymphs (Man) 0.0 K/mm3 08/06/20 04:00 Monocytes # (Manual) 0.3 K/mm3 (0.0-0.8) 08/06/20 04:00 Eosinophils # (Manual) 0.0 K/mm3 (0.0-0.4) 08/06/20 04:00 Basophils # (Manual) 0.0 K/mm3 (0.0-0.1) 08/06/20 04:00 Metamyelocytes # 0.4 K/mm3 08/06/20 04:00 Myelocytes # 0.0 K/mm3 08/06/20 04:00 Promyelocytes # 0.0 K/mm3 08/06/20 04:00 Blast Cells # 0.0 K/mm3 08/06/20 04:00 Pathologist Review 08/03/20 04:49 WBC Morphology Not Reportable 08/06/20 04:00 Hypersegmented Neuts Not Reportable 08/06/20 04:00 Hyposegmented Neuts Not Reportable 08/06/20 04:00 Hypogranular Neuts Not Reportable 08/06/20 04:00 Smudge Cells Not Reportable 08/06/20 04:00 Toxic Granulation Not Reportable 08/06/20 04:00 Toxic Vacuolation Not Reportable 08/06/20 04:00 Dohle Bodies Not Reportable 08/06/20 04:00 Pelger-Huet Anomaly Not Reportable 08/06/20 04:00 Savanna Rods Not Reportable 08/06/20 04:00 Platelet Estimate Consistent w auto 08/06/20 04:00 Clumped Platelets Not Reportable 08/06/20 04:00 Plt Clumps, EDTA Not Reportable 08/06/20 04:00 Large Platelets Not Reportable 08/06/20 04:00 Giant Platelets Not Reportable 08/06/20 04:00 Platelet Satelliting Not Reportable 08/06/20 04:00 Plt Morphology Comment Not Reportable 08/06/20 04:00 RBC Morphology Not Reportable 08/06/20 04:00 Dimorphic RBCs Not Reportable 08/06/20 04:00 Polychromasia Few 08/06/20 04:00 Hypochromasia 1+ 08/06/20 04:00 Poikilocytosis Not Reportable 08/06/20 04:00 Anisocytosis Few 08/06/20 04:00 Microcytosis Not Reportable 08/06/20 04:00 Macrocytosis Not Reportable 08/06/20 04:00 Spherocytes Not Reportable 08/06/20 04:00 Pappenheimer Bodies Not Reportable 08/06/20 04:00 Sickle Cells Not Reportable 08/06/20 04:00 Target Cells Not Reportable 08/06/20 04:00 Tear Drop Cells Not Reportable 08/06/20 04:00 Ovalocytes Not Reportable 08/06/20 04:00 Helmet Cells Not Reportable 08/06/20 04:00 [place] Bodies Not Reportable 08/06/20 04:00 Pelican Rings Not Reportable 08/06/20 04:00 Alma Cells Not Reportable 08/06/20 04:00 Bite Cells Not Reportable 08/06/20 04:00 Crenated Cell Not Reportable 08/06/20 04:00 Elliptocytes Not Reportable 08/06/20 04:00 Acanthocytes (Spur) Not Reportable 08/06/20 04:00 Rouleaux Not Reportable 08/06/20 04:00 Hemoglobin C Crystals Not Reportable 08/06/20 04:00 Schistocytes Rare 08/06/20 04:00 Malaria parasites Not Reportable 08/06/20 04:00 Junaid Bodies Not Reportable 08/06/20 04:00 Hem Pathologist Commnt No 08/06/20 04:00 PT 15.4 Sec. (12.2-14.9) H 08/05/20 13:35 INR 1.22 (0.87-1.13) H 08/05/20 13:35 APTT 30.5 Sec. (24.2-36.6) 08/05/20 13:35 D-Dimer 4748.32 ng/mlDDU (0-234) H 08/05/20 13:35 Heparin Anti-Xa Level 0.48 U.I./ml (0.3-0.7) 08/10/20 08:32 ABG pH 7.354 (7.320-7.450) 08/10/20 05:45 POC ABG pCO2 51.3 mmHg (32.0-48.0) H 08/10/20 05:45 ABG pCO2 47.9 mm Hg 08/07/20 04:00 POC ABG pO2 100.6 mmHg (83-108) 08/10/20 05:45 ABG pO2 111.4 mm Hg (80.0-90.0) H 08/07/20 04:00 POC ABG HCO3 27.9 08/10/20 05:45 ABG HCO3 27.6 mmol/L (20.0-26.0) H 08/07/20 04:00 ABG O2 Saturation 97.9 % (95.0-99.0) 08/07/20 04:00 ABG O2 Content 11.6 (0.0-44) 08/07/20 04:00 POC ABG Base Excess 2.0 08/10/20 05:45 ABG Base Excess 2.1 mmol/L (-2.0-3.0) 08/07/20 04:00 ABG Hemoglobin 7.9 (12.0-17.5) L 08/10/20 05:45 ABG Oxyhemoglobin 90.2 (94-98) L 08/06/20 21:11 ABG Carboxyhemoglobin 2.1 % (0.0-5.0) 08/07/20 04:00 ABG Methemoglobin 0.6 % (0.0-1.5) 08/07/20 04:00 ABG Sodium 140.4 mmol/L (136.0-145.0) 08/10/20 05:45 ABG Potassium 4.3 mmol/L (3.40-4.50) 08/10/20 05:45 ABG Chloride 109.0 mmol/L (98-107) H 08/10/20 05:45 ABG Glucose 141 mg/dL (65-95) H 08/10/20 05:45 Oxyhemoglobin 95.3 % (95.0-99.0) 08/07/20 04:00 Carboxyhemoglobin 1.7 (0.5-1.5) H 08/06/20 21:11 FiO2 80 08/10/20 05:45 Sodium 145 mmol/L (137-145) 08/10/20 05:00 Potassium 4.4 mmol/L (3.6-5.0) 08/10/20 05:00 Chloride 108.6 mmol/L (98-107) H 08/10/20 05:00 Carbon Dioxide 29 mmol/L (22-30) 08/10/20 05:00 Anion Gap 12 mmol/L 08/10/20 05:00 BUN 27 mg/dL (7-17) H 08/10/20 05:00 Creatinine 0.8 mg/dL (0.6-1.2) 08/10/20 05:00 Estimated GFR > 60 ml/min 08/10/20 05:00 BUN/Creatinine Ratio 34 % 08/10/20 05:00 Glucose 133 mg/dL (65-100) H 08/10/20 05:00 POC Glucose 115 mg/dL (70-105) H 08/10/20 05:38 Lactic Acid 1.80 mmol/L (0.7-2.0) 07/31/20 14:14 Calcium 8.4 mg/dL (8.4-10.2) 08/10/20 05:00 Phosphorus 3.20 mg/dL (2.5-4.5) 07/08/20 16:13 Magnesium 2.20 mg/dL (1.7-2.3) 07/08/20 16:13 Ferritin 964.8 ng/mL (10.0-200.0) H 07/31/20 14:14 Total Bilirubin 0.30 mg/dL (0.1-1.2) 08/10/20 05:00 AST 17 units/L (5-40) 08/10/20 05:00 ALT 36 units/L (7-56) 08/10/20 05:00 Alkaline Phosphatase 85 units/L (35-129) 08/10/20 05:00 Lactate Dehydrogenase 585 units/L (91-180) H 07/31/20 14:14 C-Reactive Protein 26.40 mg/dL (0.00-1.30) H 08/05/20 13:35 Total Protein 5.3 g/dL (6.3-8.2) L 08/10/20 05:00 Albumin 2.3 g/dL (3.9-5) L 08/10/20 05:00 Albumin/Globulin Ratio 0.8 % 08/10/20 05:00 Triglycerides 185 mg/dL (2-149) H 08/10/20 05:00 Procalcitonin 1.39 ng/mL (<0.15) 08/05/20 13:35 Arterial Blood Glucose 141 mg/dL (65-95) H 08/10/20 05:45 Arterial Blood Ionized Calcium 4.5 mg/dL (4.6-5.3) L 08/10/20 05:45 Urine Color Yellow (Yellow) 07/11/20 09:30 Urine Turbidity Clear (Clear) 07/11/20 09:30 Urine pH 5.0 (5.0-7.0) 07/11/20 09:30 Ur Specific [place] 1.028 (1.003-1.030) 07/11/20 09:30 Urine Protein <15 mg/dl mg/dL (Negative) 07/11/20 09:30 Urine Glucose (UA) Neg mg/dL (Negative) 07/11/20 09:30 Urine Ketones Neg mg/dL (Negative) 07/11/20 09:30 Urine Blood Neg (Negative) 07/11/20 09:30 Urine Nitrite Neg (Negative) 07/11/20 09:30 Urine Bilirubin Neg (Negative) 07/11/20 09:30 Urine Urobilinogen 2.0 mg/dL (<2.0) 07/11/20 09:30 Ur Leukocyte Esterase Neg (Negative) 07/11/20 09:30 Urine WBC (Auto) 1.0 /HPF (0.0-6.0) 07/11/20 09:30 Urine RBC (Auto) 1.0 /HPF (0.0-6.0) 07/11/20 09:30 U Epithel Cells (Auto) 1.0 /HPF (0-13.0) 07/11/20 09:30 Urine Mucus Few /HPF 07/11/20 09:30 Urine Creatinine 89.2 mg/dL (0.1-20.0) H 07/31/20 16:00 Urine Sodium 26 mmol/L 07/31/20 16:00 Urine Total Protein 108 mg/dL (5-11.8) H 07/31/20 16:00 Vancomycin Trough 27.0 ug/mL (5.0-20.0) H 08/05/20 20:07 Random Vancomycin 7.9 ug/mL (0-40.0) 08/02/20 06:37 Coronavirus (PCR) Positive (Negative) A 07/23/20 Unknown SARS-CoV-2 IgG Ab Reactive (NonReactive) A 07/15/20 14:30 Blood Type O POSITIVE 07/09/20 15:30 Antibody Screen Negative 07/09/20 15:30 Microbiology: Microbiology 08/06/20 23:46 Peripheral/Venous Blood Culture - Preliminary NO GROWTH AFTER 72 HOURS 08/06/20 22:57 Peripheral/Venous Blood Culture - Preliminary NO GROWTH AFTER 72 HOURS - Diagnostic Impressions Diagnostic Impressions: Echocardiogram 07/19/20 13:13 Transthoracic Echocardiogram Indication: CHF BP: 106/58 Conclusions *The left ventricular systolic function is within normal limits. There are no wall motion abnormalities observed. *The estimated ejection fraction is 60-65%. *Normal left ventricular diastolic filling is observed. Findings Procedure Info: The study quality is fair. Left Ventricle: The left ventricular chamber size, wall thickness and systolic function are within normal limits. There are no wall motion abnormalities observed. Ejection fraction is normal. The estimated ejection fraction is 60-65%. Normal left ventricular diastolic filling is observed. Left Atrium: The left atrium is normal in size with no visual thrombus identified. Right Ventricle: The right ventricular chamber size and systolic function are within normal limits. Right Atrium: The right atrium appears normal. Aortic Valve: The aortic valve is trileaflet. The leaflets are thin with normal excursion. There is no aortic stenosis or regurgitation present. Mitral Valve: The mitral valve leaflets are mildly thickened. There is trace of mitral regurgitation. There is no evidence of mitral stenosis. Tricuspid Valve: The tricuspid valve leaflets are normal. There is trace tricuspid regurgitation. The right ventricular systolic pressure is calculated at 14 mmHg. There is no tricuspid stenosis. Pulmonic Valve: The pulmonic valve appears normal. There is mild pulmonic regurgitation. There is no pulmonic stenosis. Pericardium: The pericardium appears normal. Aorta: The aorta appears normal. Pulmonary Artery: The main pulmonary artery appears normal. Venous: The inferior vena cava appears normal in size. There is a greater than 50% respiratory change in the inferior vena cava dimension. Measurements Chambers 2D Name Value Normal Range IVSd (2D) 1.08 cm (0.6 - 1.1) LVPWd (2D) 0.91 cm (0.6 - 1.1) LVIDd (2D) 4.61 cm (3.7 - 5.6) LVIDs (2D) 3.12 cm (2 - 3.8) LV FS (2D) 32.38 % - EF Teichholz (2D) 60.72 % - Ao root diameter (2D) 3.01 cm (2 - 3.7) Volumes/Mass Name Value Normal Range LA ESV SP 4CH (A/L) 57.18 ml - LA ESV SP 2CH (A/L) 62.63 ml - LA ESV BP (A/L) 60.68 ml - LA ESV BP (A/L) index 28.22 ml/m2 - LA ESV SP 4CH (MOD) 51.17 ml - LA ESV SP 2CH (MOD) 57.8 ml - LA ESV BP (MOD) 54.73 ml - LA ESV BP (MOD) index 25.45 ml/m2 - LV EDV SP 4CH (MOD) 115.34 ml - LV ESV SP 4CH (MOD) 43.26 ml - EF SP 4CH (MOD) 62.5 % - LV EDV SP 2CH (MOD) 43.71 ml - LV ESV SP 2CH (MOD) 17.14 ml - EF SP 2CH (MOD) 60.79 % - LV EDV BP 73.15 ml - LV ESV BP 27.92 ml - BP EF (MOD) 61.83 % - Diastolic/Systolic Function Name Value Normal Range MV E-wave Vmax 0.88 m/sec - MV deceleration time 157.66 msec - MV A-wave Vmax 0.91 m/sec - MV E:A ratio 0.96 ratio - Aortic Valve Name Value Normal Range AV Vmax 1.54 m/sec - AV VTI 31.46 cm - AV peak gradient 9.51 mmHg - AV mean gradient 5.1 mmHg - LVOT diameter 1.95 cm - LVOT Vmax 1.21 m/sec - LVOT VTI 27.59 cm - LVOT peak gradient 5.83 mmHg - LVOT mean gradient 3.3 mmHg - SV LVOT 82.76 ml - SMITH (continuity Vmax) 2.35 cm2 - SMITH (continuity VTI) 2.63 cm2 - Ascending Ao 2.94 cm - Tricuspid Valve Name Value Normal Range TV E-wave Vmax 0.49 m/sec - TR Vmax 1.72 m/sec - TR peak gradient 11.86 mmHg - RAP 3 mmHg - RVSP 14 mmHg - IVC diameter 1.91 cm (1.2 - 2.3) Pulmonic Valve/Qp:Qs Name Value Normal Range PV Vmax 0.94 m/sec - PV peak gradient 3.54 mmHg - CT end-diastolic Vmax 0.54 m/sec - RVOT Vmax 0.68 m/sec - RVOT VTI 13.18 cm - RVOT peak gradient 1.82 mmHg - PV acceleration time 117.98 msec - Tejada/IV: Voiding Method Indwelling Catheter IV Catheter Type [Left Upper PICC Line arm] IV Catheter Type [Right INT / Saline Lock Forearm] IV Catheter Type [Left Wrist] INT / Saline Lock IV Catheter Type [Left Hand] Peripheral IV Active Medications - Current Medications Current Medications: Generic Name Dose Route Start Last Admin Trade Name Freq PRN Reason Stop Dose Admin Acetaminophen 650 mg 07/06/20 13:39 08/09/20 18:16 Tylenol PO 650 mg Q4H PRN Administration Pain MILD(1-3)/Fever >100.5/WILLETT Albuterol/Ipratropium 1 ampul 08/05/20 11:33 Duoneb *Not For Prn Use* IH TIDRT PRN Overdose Alprazolam 0.5 mg 07/07/20 12:28 07/27/20 03:15 Xanax PO 0.5 mg Q8H PRN Administration Anxiety Lipase/Protease/Amylase 1 each 07/08/20 14:50 Pancreazchristina Price 10,500 Unit FEEDTUBE PRN PRN For Clogged Feeding Tube Arformoterol Tartrate 15 mcg 07/07/20 09:15 08/09/20 21:23 Brovana Nebu IH 15 mcg Q12HRT ROMMEL Administration Ascorbic Acid 500 mg 07/08/20 22:00 08/09/20 22:28 Vitamin C PO 500 mg BID ROMMEL Administration Aspirin 81 mg 07/06/20 14:00 08/09/20 11:36 Baby Aspirin PO 81 mg QDAY ROMMEL Administration Budesonide 0.5 mg 07/07/20 09:15 08/09/20 21:23 Pulmicort IH 0.5 mg Q12HRT ROMMEL Administration Chlordiazepoxide HCl 75 mg 07/30/20 13:00 08/10/20 06:34 Librium PO 75 mg Q8H ROMMEL Administration Dextrose 50 ml 07/12/20 16:58 D50w (25gm) Syringe IV Q30MIN PRN Hypoglycemia Protocol Docusate Sodium 100 mg 07/16/20 22:00 08/09/20 22:29 Colace PO 100 mg BID ROMMEL Administration Fentanyl 50 mcg 07/08/20 13:16 08/09/20 18:16 Sublimaze IV 50 mcg Q10MIN PRN Administration ANALGESIA Fentanyl 50 mcg 08/08/20 15:24 Fentanyl 100 Mcg/2 Ml Inj IV Q10MIN PRN ANALGESIA Gabapentin 600 mg 07/25/20 14:00 08/10/20 06:25 Gabapentin PO 600 mg Q8HR ROMMEL Administration Hydrophilic Ointment 1 applic 07/08/20 13:16 07/22/20 23:01 Vaseline Lip Therapy TP 1 applic Q2HR PRN Administration Dry Lips Hydroxychloroquine Sulfate 200 mg 07/07/20 10:00 08/09/20 13:01 Plaquenil PO Not Given QDAY ROMMEL Midazolam HCl 100 mg/ Sodium 100 mls @ 2 mls/hr 07/08/20 15:00 08/10/20 00:28 Chloride IV 5 mg/hr TITR ROMMEL 5 mls/hr Administration Protocol 2 MG/HR Sodium Chloride 500 mls @ 10 mls/hr 07/15/20 15:00 Nacl 0.9% 500 Ml IV DIRECT ROMMEL Norepinephrine 4 mg in 250 mls @ 7.5 mls/hr 07/27/20 05:00 08/09/20 22:31 Levophed Drip 4 Mg/Ns 250 Ml IV 2 mcg/min TITR ROMMEL 7.5 mls/hr Administration Protocol 2 MCG/MIN Vasopressin 20 unit/ Sodium 101 mls @ 9.09 mls/hr 07/30/20 13:00 08/04/20 14:25 Chloride IV 0 units/min TITR ROMMEL 0 mls/hr Titration Protocol 0.03 UNITS/MIN Phenylephrine HCl 100 mg/ 100 mls @ 3 mls/hr 07/30/20 15:00 08/04/20 10:08 Sodium Chloride IV 0 mcg/min TITR ROMMEL 0 mls/hr Titration Protocol 50 MCG/MIN Dopamine HCl/Dextrose 800 mg in 250 mls @ 3.679 mls/hr 07/31/20 22:00 Intropin Drip 800 Mg/D5w 250 Ml IV TITR ROMMEL Protocol 2 MCG/KG/MIN Heparin Sodium/Sodium Chloride 25,000 unit in 500 mls @ 30 mls/hr 08/05/20 13:00 08/10/20 03:03 Heparin/ 0.45% Nacl-25,000 Unit/500 Ml IV 1,700 units/hr TITR ROMMEL 34 mls/hr Administration Protocol 1,500 UNITS/HR Propofol 500 mg in 50 mls @ 2.946 mls/hr 08/05/20 13:00 08/10/20 08:37 Propofol IV 10 mcg/kg/min TITR ROMMEL 5.892 mls/hr Administration Protocol 5 MCG/KG/MIN Fentanyl Citrate 2,000 mcg in 100 mls @ 5.75 mls/hr 08/08/20 16:00 08/10/20 06:25 Fentanyl Drip Premix IV 2 mcg/kg/hr TITR ROMMEL 11.5 mls/hr Administration Protocol 1 MCG/KG/HR Insulin Glargine 20 units 08/08/20 10:00 08/09/20 11:35 Lantus SUB-Q 20 units DAILY ROMMEL Administration Insulin Human Regular 0 unit 08/01/20 00:00 08/10/20 06:36 Humulin R SUB-Q Not Given Q6HR [facility] Protocol Lansoprazole 30 mg 07/10/20 10:00 08/09/20 11:36 Lansoprazole 30 Mg Solutab FEEDTUBE 30 mg QDAY ROMMEL Administration Methylprednisolone Sodium Succinate 40 mg 07/22/20 14:00 08/10/20 06:35 Solu-Medrol IV 40 mg Q8H ROMMEL Administration Metoclopramide HCl 5 mg 08/05/20 12:00 08/10/20 06:24 Reglan IV 5 mg Q6HR ROMMEL Administration Multi-Ingred Cream/Lotion/Oil/Oint 1 applic 07/08/20 13:16 Artificial Tears Ophth Oint OU Q4HR PRN Dry Eye(s) Ondansetron HCl 4 mg 07/06/20 13:39 08/09/20 11:36 Zofran IV 4 mg Q8H PRN Administration Nausea And Vomiting Polyethylene Glycol 17 gm 07/29/20 12:00 08/09/20 11:35 Miralax 3350 PO 17 gm DAILY ROMMEL Administration Quetiapine Fumarate 200 mg 07/25/20 22:00 08/09/20 22:28 Seroquel PO 200 mg BID ROMMEL Administration Quetiapine Fumarate 100 mg 07/25/20 22:00 08/09/20 22:28 Seroquel PO 100 mg BID ROMMEL Administration Simple Syrup 15 ml 07/08/20 14:50 Simple Syrup FEEDTUBE PRN PRN Hypoglycemia Simple Syrup 30 ml 07/08/20 14:50 Simple Syrup FEEDTUBE PRN PRN Hypoglycemia Sodium Bicarbonate 325 mg 07/08/20 14:50 Sodium Bicarbonate FEEDTUBE PRN PRN For Clogged Feeding Tube Sodium Chloride 10 ml 07/06/20 14:00 08/09/20 13:01 Sodium Chloride Flush Syringe 10 Ml IV Not Given BID ROMMEL Sodium Chloride 10 ml 07/06/20 13:39 07/26/20 06:31 Sodium Chloride Flush Syringe 10 Ml IV 10 ml PRN PRN Administration LINE FLUSH Venlafaxine HCl 37.5 mg 07/07/20 10:00 08/09/20 13:01 Effexor PO Not Given DAILY ROMMEL Zinc Sulfate 220 mg 07/08/20 22:00 08/09/20 22:29 Zinc Sulfate PO 220 mg BID ROMMEL Administration Nutrition/Malnutrition Assess - Dietary Evaluation Nutrition/Malnutrition Findings: Nutrition Notes Start: 07/08/20 14:02 Freq: Status: Active Protocol: Document 08/09/20 11:18 EN (Rec: 08/09/20 11:25 EN [email or web address]) Co-Sign 08/09/20 11:18 LM Nutrition Notes Initial or Follow up Reassessment Current Diagnosis Hypertension,Heart Failure Other Pertinent Diagnosis Acute respiratory failure, COVID(+), GERD, Lupus, Anemia Current Diet Vital AF 1.2 at 55 mL/hr (goal rate) Labs/Tests Reviewed Pertinent Medications Fentanyl Reglan Propofol at 2.946 ml/hr (78 kcal) Height 5 ft 5 in Weight 115 kg [place] Body Weight (kg) 56.81 BMI 42.2 Weight Status Morbidly Obese Subjective/Other Information F/u for TF tolerance and Na labs. No new labs. Per RN, TF stopped d/t gastric residuals. RN also reports emesis yesterday d/t pt being agitated. Percent of energy/protein needs met: 0%/0% Burn Absent Trauma Absent GI Symptoms Vomiting Current % PO Negligible Minimum of two criteria No physical signs of malnutrition #1 Nutrition Diagnosis Inadequate oral intake Diagnosis Progress(for reassessment Continues documentation) Is patient on ventilator? Yes Is Patient Ambulatory and/or Out of Bed No REE-([place]-St. Jeor-confined to bed) 2140.284 Kcal/Kg value to use for calculation 17 Approximate Energy Requirements Using 1955 kcal/Kg Calculation Used for Recommendations Kcal/kg Additional Notes Pro: greater than 114 g (>2 g/ kg IBW) Fluid: 1ml/kcal or per MD Nutrition Intervention Change Diet Order: Restart TF when medically feasible Nutrition Support: Vital AF at 55 ml/hr Flush 75 ml q4h. For hypernatremia, flush 200ml q4h Kcal 1,584 Protein (gm) 99 Fluid (mL) 1,070 Goal #1 TF restart/tolerance Goal #2 Meet at least 80% of protein and energy needs via TF Anticipated Discharge Needs: Cannot determine at this time Follow-Up By: 08/12/20 Additional Comments F/u for TF restart/tolerance and Na labs
[2020-08-10] MEDS: ARFORMOTEROL 15 MCG/2 ML NEBU IH SCH ×2 (09:05→21:14)
[2020-08-10] MEDS: BUDESONIDE 0.5 MG/2 ML NEBU IH SCH ×2 (09:05→21:14)
--- NOTE | 2020-08-10 09:16 | XRay Report ---
CHEST 1 VIEW 08/10/2020 8:08 AM INDICATION / CLINICAL INFORMATION: PTX, vent. COMPARISON: 08/09/20 FINDINGS: SUPPORT DEVICES: Unchanged. Endotracheal tube balloon appears over dilated. HEART / MEDIASTINUM: Stable. LUNGS / PLEURA: Bilateral pulmonary opacities appear stable. No pneumothorax. ADDITIONAL FINDINGS: Moderate chest wall and neck subcutaneous soft tissue emphysema is unchanged. IMPRESSION: 1. No change in the appearance of the chest or subcutaneous soft tissue emphysema. 2. Endotracheal balloon appears over dilated. Signer Name: Yaneth Flores MD Signed: 08/10/2020 9:11 AM Workstation Name: [id number]
[2020-08-10] MEDS: DOCUSATE SODIUM 100 MG/10 ML ORAL LIQD PO SCH ×2 (09:38→21:20)
[2020-08-10] MEDS: LANSOPRAZOLE 30 MG SOLUTAB FEEDTUBE SCH (09:38)
[2020-08-10] MEDS: QUEtiapine 100 MG TAB PO SCH ×2 (09:39→21:21)
[2020-08-10] MEDS: ZINC SULFATE 220 MG CAP PO SCH ×2 (09:39→21:21)
[2020-08-10] MEDS: ASPIRIN 81 MG TAB CHEW PO SCH (09:39)
[2020-08-10] MEDS: QUEtiapine 200 MG TAB PO SCH ×2 (09:39→21:20)
[2020-08-10] MEDS: POLYETHYLENE GLYCOL 3350 17 GM POWDER PO SCH (09:39)
[2020-08-10] MEDS: HYDROXYCHLOROQUINE 200 MG TAB PO SCH (09:39)
[2020-08-10] MEDS: VENLAFAXINE 37.5 MG TAB PO SCH (09:39)
[2020-08-10] MEDS: ASCORBIC ACID 500 MG TAB PO SCH ×2 (09:39→21:21)
[2020-08-10] MEDS: INSULIN GLARGINE 100 UNITS/ML SUB-Q SCH (09:41)
--- NOTE | 2020-08-10 10:31 | Progress Note ---
Assessment and Plan Acute hypoxemic respiratory failure, now on MVS Bilateral pneumonia, left greater than right lungs. COVID-19 infection. History of congestive heart failure. History of lupus erythematosus. Leukocytosis. Tobacco use disorder. Acute asthma exacerbation. History of hypertension. Obesity Subcutaneous Emphysema Bilateral Pneumothoraces (there is a continuous leak from oropharynx that does not resolve even with ETT balloon insufflation but there is no appreciable balloon leak / deflation of inflation bulb) - FiO2 reduced to 70% and RT notified - continue full dose anticoagulation with IV Heparin - continue chest tubes to continuous suction (surgery assistance appreciated) - continue sedation and target RASS -2 to -3 acutely - repeat ABG in am - continue and de-escalate AB's per ID recommendations - prognosis grave to guarded especially neurologic-rai - continue care as below otherwise; - wean Vasopressors for target MAP > 65 mmHg - continue Librium - repeat COVID-19 test is positive - continue systemic steroids - continue to wean supplemental oxygen for target O2 sat's > 92% - continue low dose SSI - continue Seroquel 300 mg p.o. bid - continue airborne and contact isolation - continue Zinc & Vit C supplementaion - complete Remdesivir - de-escalate AB's per ID rec's - continue systemic steroids for Asthma / severe COVID infection - continue Daily SAT and SBT assessment as tolerated - VAP bundle addressed - continue lung protective strategies - continue bronchodilators with pulmonary hygiene per RT - wean per pulmonary driven protocols otherwise - accuchecks with glycemic control per SSI (While critically ill target blood glucose of 140-180 mg/dL; avoid hypoglycemia) - sedation prn for target RASS -1 to -2 - avoid nephrotoxins, renally dose all medications - continue to avoid benzodiazepine's, reduce the possibility of delirium - prn analgesia per CPOT score - Maintenance of sleep-wake cycle, avoid delirium - continue enteral nutritional support at goal rate as tolerated - G.I. & VTE prophylaxis - PT/OT/ROM exercises - continue mobility protocols for pressure ulcer prophylaxis - Monitor hemodynamics closely - continue other care per attending / other consultants - discharge planning ongoing concurrently .... Re-evaluate in am & prn CONDITION: CRITICAL PROGNOSIS: GUARDED CODE STATUS: FULL CODE The high probability of a clinically significant, sudden or life-threatening deterioration of the [respiratory, cardiovascular & neurologic] system(s) required my full and direct attention, intervention and personal management. The aggregate critical care time was [33] minutes without overlap. Time includes spent on; [x] Data Review and interpretation [x] Patient assessment and monitoring of vital signs [x] Documentation [x] Medication orders and management Subjective Date of service: 08/10/20 Principal diagnosis: Ac hypoxemic resp failure; PNA; COVID-19 infxn; SLE; Asthma exacerbation Interval history: Patient is seen today for: Acute hypoxemic respiratory failure; Bilateral pneumonia; COVID-19 infection; H/O CHF; SLE; Acute asthma exacerbation. HTN; Obesity Seen and examined at bedside; 24hour events reviewed; nursing and respiratory care staff consulted; no adverse overnight events reported to me; resting peacefully in bed; remains on MVS; chest tubes in place; Sub-Q emphysema progressive in neck and face today; No emesis or overt aspiration; FiO2 down to 80% with 100% O2 sat's on monitor Objective Vital Signs - 12hr 08/09/20 08/09/20 08/09/20 22:45 23:01 23:15 Temperature Pulse Rate 89 93 H 91 H Pulse Rate [ Bilateral Throughout] Pulse Rate [ From Monitor] Respiratory 30 H 30 H 30 H Rate Respiratory Rate [Bilateral Throughout] Blood Pressure 105/57 105/57 98/58 O2 Sat by Pulse 100 Oximetry 08/09/20 08/09/20 08/10/20 23:31 23:45 00:00 Temperature 98.9 F Pulse Rate 87 85 82 Pulse Rate [ Bilateral Throughout] Pulse Rate [ 82 From Monitor] Respiratory 30 H 30 H 30 H Rate Respiratory Rate [Bilateral Throughout] Blood Pressure 98/58 94/58 O2 Sat by Pulse 100 Oximetry 08/10/20 08/10/20 08/10/20 00:01 00:15 00:26 Temperature Pulse Rate 83 82 83 Pulse Rate [ Bilateral Throughout] Pulse Rate [ From Monitor] Respiratory 30 H 30 H Rate Respiratory Rate [Bilateral Throughout] Blood Pressure 94/58 113/69 119/71 O2 Sat by Pulse 100 Oximetry 08/10/20 08/10/20 08/10/20 00:31 00:45 01:01 Temperature Pulse Rate 79 84 85 Pulse Rate [ Bilateral Throughout] Pulse Rate [ From Monitor] Respiratory 30 H 30 H 30 H Rate Respiratory Rate [Bilateral Throughout] Blood Pressure 113/69 119/71 119/71 O2 Sat by Pulse 100 100 Oximetry 08/10/20 08/10/20 08/10/20 01:15 01:31 01:45 Temperature Pulse Rate 87 86 89 Pulse Rate [ Bilateral Throughout] Pulse Rate [ From Monitor] Respiratory 30 H 30 H 27 H Rate Respiratory Rate [Bilateral Throughout] Blood Pressure 128/81 128/81 135/79 O2 Sat by Pulse 100 100 100 Oximetry 08/10/20 08/10/20 08/10/20 02:01 02:15 02:31 Temperature Pulse Rate 87 89 94 H Pulse Rate [ Bilateral Throughout] Pulse Rate [ From Monitor] Respiratory 30 H 30 H 30 H Rate Respiratory Rate [Bilateral Throughout] Blood Pressure 135/79 138/76 135/79 O2 Sat by Pulse 100 100 100 Oximetry 08/10/20 08/10/20 08/10/20 02:45 03:00 03:16 Temperature Pulse Rate 90 89 92 H Pulse Rate [ Bilateral Throughout] Pulse Rate [ From Monitor] Respiratory 30 H 30 H 29 H Rate Respiratory Rate [Bilateral Throughout] Blood Pressure 143/78 143/78 143/78 O2 Sat by Pulse 100 100 100 Oximetry 08/10/20 08/10/20 08/10/20 03:30 03:39 03:46 Temperature 98.6 F Pulse Rate 89 88 Pulse Rate [ Bilateral Throughout] Pulse Rate [ From Monitor] Respiratory 30 H 31 H Rate Respiratory Rate [Bilateral Throughout] Blood Pressure 143/78 145/76 O2 Sat by Pulse 100 100 Oximetry 08/10/20 08/10/20 08/10/20 04:00 04:16 04:30 Temperature Pulse Rate 93 H 92 H 90 Pulse Rate [ Bilateral Throughout] Pulse Rate [ 89 From Monitor] Respiratory 30 H 30 H 30 H Rate Respiratory Rate [Bilateral Throughout] Blood Pressure 145/76 147/76 131/71 O2 Sat by Pulse 100 100 100 Oximetry 08/10/20 08/10/20 08/10/20 04:46 05:00 05:16 Temperature Pulse Rate 88 87 86 Pulse Rate [ Bilateral Throughout] Pulse Rate [ From Monitor] Respiratory 30 H 30 H 30 H Rate Respiratory Rate [Bilateral Throughout] Blood Pressure 137/69 147/76 139/67 O2 Sat by Pulse 100 100 100 Oximetry 08/10/20 08/10/20 08/10/20 05:30 05:34 05:46 Temperature Pulse Rate 87 85 85 Pulse Rate [ Bilateral Throughout] Pulse Rate [ From Monitor] Respiratory 30 H 30 H Rate Respiratory Rate [Bilateral Throughout] Blood Pressure 139/67 139/67 136/71 O2 Sat by Pulse 100 100 100 Oximetry 08/10/20 08/10/20 08/10/20 06:00 06:16 06:30 Temperature Pulse Rate 86 116 H 111 H Pulse Rate [ Bilateral Throughout] Pulse Rate [ From Monitor] Respiratory 18 18 27 H Rate Respiratory Rate [Bilateral Throughout] Blood Pressure 136/71 137/77 137/77 O2 Sat by Pulse 82 L 95 99 Oximetry 08/10/20 08/10/20 08/10/20 06:46 09:02 09:05 Temperature Pulse Rate 107 H 100 H Pulse Rate [ 98 H Bilateral Throughout] Pulse Rate [ From Monitor] Respiratory 19 Rate Respiratory 30 H Rate [Bilateral Throughout] Blood Pressure 125/74 155/87 O2 Sat by Pulse 98 99 Oximetry Constitutional: no acute distress, other (middle aged obese female with mildly increased respiratory effort at rest on MVS) Eyes: non-icteric ENT: oropharynx moist, other (ETT 23cm YANET) Neck: supple, no lymphadenopathy, no JVD Effort: mildly labored Ascultation: Bilateral: diminished breath sounds, rhonchi, other (two R. chest tubes and 1 on left (leaks on right side)) Percussion: Bilateral: not dull Cardiovascular: regular rate and rhythm, other (S1,S2) Gastrointestinal: normoactive bowel sounds, soft, non-tender, non-distended Integumentary: other (+ Sub-Q emphysema to neck and face + upper chest) Extremities: no cyanosis, no edema, pulses normal, no ischemia or petechiae Neurologic: pupils equal and round, other (sedated) Psychiatric: other (unable to assess re: AMS / sedation) CBC and BMP: 08/10/20 05:00 08/10/20 05:00 ABG, PT/INR, D-dimer: ABG ABG pH 7.354 (7.320-7.450) 08/10/20 05:45 POC ABG pCO2 51.3 mmHg (32.0-48.0) H 08/10/20 05:45 ABG pCO2 47.9 mm Hg 08/07/20 04:00 POC ABG pO2 100.6 mmHg (83-108) 08/10/20 05:45 ABG pO2 111.4 mm Hg (80.0-90.0) H 08/07/20 04:00 POC ABG HCO3 27.9 08/10/20 05:45 ABG O2 Saturation 97.9 % (95.0-99.0) 08/07/20 04:00 PT/INR, D-dimer PT 15.4 Sec. (12.2-14.9) H 08/05/20 13:35 INR 1.22 (0.87-1.13) H 08/05/20 13:35 D-Dimer 4748.32 ng/mlDDU (0-234) H 08/05/20 13:35 Abnormal lab findings: Abnormal Labs 07/06/20 07/06/20 07/07/20 05:24 17:16 04:50 WBC 13.5 H 12.7 H RBC Hgb Hct MCH MCHC RDW Plt Count Lymph % (Auto) Lymph # (Auto) Seg Neutrophils % Seg Neuts % (Manual) 86.0 H 87.0 H Lymphocytes % (Manual) 6.0 L 9.0 L Eosinophils % (Manual) Nucleated RBC % Seg Neutrophils # Seg Neutrophils # Man 11.6 H 11.0 H Lymphocytes # (Manual) 0.8 L 1.1 L Eosinophils # (Manual) PT INR D-Dimer Heparin Anti-Xa Level ABG pH POC ABG pCO2 POC ABG pO2 ABG pO2 ABG HCO3 ABG O2 Saturation ABG Base Excess ABG Hemoglobin ABG Oxyhemoglobin ABG Sodium ABG Potassium ABG Chloride ABG Glucose Oxyhemoglobin Carboxyhemoglobin Sodium Potassium Chloride Carbon Dioxide BUN Creatinine Glucose POC Glucose Lactic Acid Calcium Ferritin AST ALT Lactate Dehydrogenase 242 H C-Reactive Protein 7.30 H Total Protein Albumin Triglycerides Arterial Blood Glucose Arterial Blood Ionized Calcium Urine Creatinine Urine Total Protein Vancomycin Trough Coronavirus (PCR) SARS-CoV-2 IgG Ab 07/07/20 07/07/20 07/07/20 04:50 14:22 14:22 WBC RBC Hgb Hct MCH MCHC RDW Plt Count Lymph % (Auto) Lymph # (Auto) Seg Neutrophils % Seg Neuts % (Manual) Lymphocytes % (Manual) Eosinophils % (Manual) Nucleated RBC % Seg Neutrophils # Seg Neutrophils # Man Lymphocytes # (Manual) Eosinophils # (Manual) PT INR D-Dimer Heparin Anti-Xa Level ABG pH POC ABG pCO2 POC ABG pO2 ABG pO2 ABG HCO3 ABG O2 Saturation ABG Base Excess ABG Hemoglobin ABG Oxyhemoglobin ABG Sodium ABG Potassium ABG Chloride ABG Glucose Oxyhemoglobin Carboxyhemoglobin Sodium Potassium Chloride Carbon Dioxide BUN 18 H Creatinine Glucose 138 H POC Glucose Lactic Acid Calcium Ferritin 228.2 H AST ALT Lactate Dehydrogenase 277 H C-Reactive Protein Total Protein 5.9 L Albumin 3.4 L Triglycerides Arterial Blood Glucose Arterial Blood Ionized Calcium Urine Creatinine Urine Total Protein Vancomycin Trough Coronavirus (PCR) SARS-CoV-2 IgG Ab 07/08/20 07/08/20 07/08/20 11:18 12:57 16:13 WBC RBC Hgb Hct MCH MCHC RDW Plt Count Lymph % (Auto) Lymph # (Auto) Seg Neutrophils % Seg Neuts % (Manual) Lymphocytes % (Manual) Eosinophils % (Manual) Nucleated RBC % Seg Neutrophils # Seg Neutrophils # Man Lymphocytes # (Manual) Eosinophils # (Manual) PT INR D-Dimer Heparin Anti-Xa Level ABG pH POC ABG pCO2 POC ABG pO2 ABG pO2 39.3 L* ABG HCO3 ABG O2 Saturation 76.8 L ABG Base Excess ABG Hemoglobin ABG Oxyhemoglobin ABG Sodium ABG Potassium ABG Chloride ABG Glucose Oxyhemoglobin 75.3 L Carboxyhemoglobin Sodium Potassium Chloride Carbon Dioxide 20 L D BUN Creatinine Glucose 135 H POC Glucose 106 H Lactic Acid Calcium 8.0 L Ferritin AST ALT Lactate Dehydrogenase C-Reactive Protein Total Protein Albumin Triglycerides Arterial Blood Glucose Arterial Blood Ionized Calcium Urine Creatinine Urine Total Protein Vancomycin Trough Coronavirus (PCR) SARS-CoV-2 IgG Ab 07/08/20 07/08/20 07/09/20 17:04 18:45 04:00 WBC 15.6 H RBC Hgb Hct MCH MCHC RDW Plt Count Lymph % (Auto) 4.7 L Lymph # (Auto) 0.7 L Seg Neutrophils % Seg Neuts % (Manual) Lymphocytes % (Manual) Eosinophils % (Manual) Nucleated RBC % Seg Neutrophils # 14.2 H Seg Neutrophils # Man Lymphocytes # (Manual) Eosinophils # (Manual) PT INR D-Dimer Heparin Anti-Xa Level ABG pH POC ABG pCO2 POC ABG pO2 ABG pO2 181.8 H ABG HCO3 ABG O2 Saturation 99.1 H ABG Base Excess ABG Hemoglobin 11.4 L ABG Oxyhemoglobin ABG Sodium ABG Potassium ABG Chloride ABG Glucose Oxyhemoglobin Carboxyhemoglobin Sodium Potassium Chloride Carbon Dioxide BUN Creatinine Glucose POC Glucose 117 H Lactic Acid Calcium Ferritin AST ALT Lactate Dehydrogenase C-Reactive Protein Total Protein Albumin Triglycerides Arterial Blood Glucose Arterial Blood Ionized Calcium Urine Creatinine Urine Total Protein Vancomycin Trough Coronavirus (PCR) SARS-CoV-2 IgG Ab 07/09/20 07/09/20 07/09/20 04:00 04:00 04:49 WBC RBC Hgb Hct MCH MCHC RDW Plt Count Lymph % (Auto) Lymph # (Auto) Seg Neutrophils % Seg Neuts % (Manual) Lymphocytes % (Manual) Eosinophils % (Manual) Nucleated RBC % Seg Neutrophils # Seg Neutrophils # Man Lymphocytes # (Manual) Eosinophils # (Manual) PT INR D-Dimer Heparin Anti-Xa Level ABG pH POC ABG pCO2 POC ABG pO2 ABG pO2 ABG HCO3 26.2 H ABG O2 Saturation ABG Base Excess ABG Hemoglobin 11.2 L ABG Oxyhemoglobin ABG Sodium ABG Potassium ABG Chloride ABG Glucose Oxyhemoglobin 94.9 L Carboxyhemoglobin Sodium Potassium Chloride Carbon Dioxide BUN Creatinine Glucose 158 H POC Glucose Lactic Acid Calcium 8.2 L Ferritin 320.0 H AST ALT Lactate Dehydrogenase 391 H C-Reactive Protein 9.50 H Total Protein 5.9 L Albumin 3.2 L Triglycerides Arterial Blood Glucose Arterial Blood Ionized Calcium Urine Creatinine Urine Total Protein Vancomycin Trough Coronavirus (PCR) SARS-CoV-2 IgG Ab 07/09/20 07/09/20 07/09/20 11:56 17:49 23:39 WBC RBC Hgb Hct MCH MCHC RDW Plt Count Lymph % (Auto) Lymph # (Auto) Seg Neutrophils % Seg Neuts % (Manual) Lymphocytes % (Manual) Eosinophils % (Manual) Nucleated RBC % Seg Neutrophils # Seg Neutrophils # Man Lymphocytes # (Manual) Eosinophils # (Manual) PT INR D-Dimer Heparin Anti-Xa Level ABG pH POC ABG pCO2 POC ABG pO2 ABG pO2 ABG HCO3 ABG O2 Saturation ABG Base Excess ABG Hemoglobin ABG Oxyhemoglobin ABG Sodium ABG Potassium ABG Chloride ABG Glucose Oxyhemoglobin Carboxyhemoglobin Sodium Potassium Chloride Carbon Dioxide BUN Creatinine Glucose POC Glucose 156 H 119 H 145 H Lactic Acid Calcium Ferritin AST ALT Lactate Dehydrogenase C-Reactive Protein Total Protein Albumin Triglycerides Arterial Blood Glucose Arterial Blood Ionized Calcium Urine Creatinine Urine Total Protein Vancomycin Trough Coronavirus (PCR) SARS-CoV-2 IgG Ab 07/10/20 07/10/20 07/10/20 03:32 05:26 11:22 WBC RBC Hgb Hct MCH MCHC RDW Plt Count Lymph % (Auto) Lymph # (Auto) Seg Neutrophils % Seg Neuts % (Manual) Lymphocytes % (Manual) Eosinophils % (Manual) Nucleated RBC % Seg Neutrophils # Seg Neutrophils # Man Lymphocytes # (Manual) Eosinophils # (Manual) PT INR D-Dimer Heparin Anti-Xa Level ABG pH POC ABG pCO2 POC ABG pO2 ABG pO2 75.7 L ABG HCO3 27.5 H ABG O2 Saturation ABG Base Excess ABG Hemoglobin 9.3 L ABG Oxyhemoglobin ABG Sodium ABG Potassium ABG Chloride ABG Glucose Oxyhemoglobin 94.7 L Carboxyhemoglobin Sodium Potassium Chloride Carbon Dioxide BUN Creatinine Glucose POC Glucose 156 H 148 H Lactic Acid Calcium Ferritin AST ALT Lactate Dehydrogenase C-Reactive Protein Total Protein Albumin Triglycerides Arterial Blood Glucose Arterial Blood Ionized Calcium Urine Creatinine Urine Total Protein Vancomycin Trough Coronavirus (PCR) SARS-CoV-2 IgG Ab 07/10/20 07/10/20 07/10/20 12:10 12:10 18:20 WBC 14.1 H RBC 3.33 L Hgb 9.9 L Hct MCH MCHC RDW Plt Count Lymph % (Auto) Lymph # (Auto) Seg Neutrophils % Seg Neuts % (Manual) 89.0 H Lymphocytes % (Manual) 8.0 L Eosinophils % (Manual) Nucleated RBC % Seg Neutrophils # Seg Neutrophils # Man 12.5 H Lymphocytes # (Manual) 1.1 L Eosinophils # (Manual) PT INR D-Dimer Heparin Anti-Xa Level ABG pH POC ABG pCO2 POC ABG pO2 ABG pO2 ABG HCO3 ABG O2 Saturation ABG Base Excess ABG Hemoglobin ABG Oxyhemoglobin ABG Sodium ABG Potassium ABG Chloride ABG Glucose Oxyhemoglobin Carboxyhemoglobin Sodium Potassium Chloride Carbon Dioxide BUN 21 H Creatinine Glucose 154 H POC Glucose 181 H Lactic Acid Calcium 8.0 L Ferritin AST ALT Lactate Dehydrogenase C-Reactive Protein Total Protein 5.4 L Albumin 3.0 L Triglycerides Arterial Blood Glucose Arterial Blood Ionized Calcium Urine Creatinine Urine Total Protein Vancomycin Trough Coronavirus (PCR) SARS-CoV-2 IgG Ab 07/10/20 07/11/20 07/11/20 23:51 04:05 05:43 WBC RBC Hgb Hct MCH MCHC RDW Plt Count Lymph % (Auto) Lymph # (Auto) Seg Neutrophils % Seg Neuts % (Manual) Lymphocytes % (Manual) Eosinophils % (Manual) Nucleated RBC % Seg Neutrophils # Seg Neutrophils # Man Lymphocytes # (Manual) Eosinophils # (Manual) PT INR D-Dimer Heparin Anti-Xa Level ABG pH 7.348 L POC ABG pCO2 POC ABG pO2 ABG pO2 93.6 H ABG HCO3 28.5 H ABG O2 Saturation ABG Base Excess ABG Hemoglobin 10.1 L ABG Oxyhemoglobin ABG Sodium ABG Potassium ABG Chloride ABG Glucose Oxyhemoglobin Carboxyhemoglobin Sodium Potassium Chloride Carbon Dioxide BUN Creatinine Glucose POC Glucose 116 H 132 H Lactic Acid Calcium Ferritin AST ALT Lactate Dehydrogenase C-Reactive Protein Total Protein Albumin Triglycerides Arterial Blood Glucose Arterial Blood Ionized Calcium Urine Creatinine Urine Total Protein Vancomycin Trough Coronavirus (PCR) SARS-CoV-2 IgG Ab 07/11/20 07/11/20 07/11/20 09:11 09:11 09:11 WBC 15.8 H RBC 3.44 L Hgb Hct MCH MCHC RDW Plt Count Lymph % (Auto) Lymph # (Auto) Seg Neutrophils % Seg Neuts % (Manual) 92.0 H Lymphocytes % (Manual) 4.0 L Eosinophils % (Manual) Nucleated RBC % Seg Neutrophils # Seg Neutrophils # Man 14.5 H Lymphocytes # (Manual) 0.6 L Eosinophils # (Manual) PT INR D-Dimer 360.61 H Heparin Anti-Xa Level ABG pH POC ABG pCO2 POC ABG pO2 ABG pO2 ABG HCO3 ABG O2 Saturation ABG Base Excess ABG Hemoglobin ABG Oxyhemoglobin ABG Sodium ABG Potassium ABG Chloride ABG Glucose Oxyhemoglobin Carboxyhemoglobin Sodium Potassium Chloride 107.1 H Carbon Dioxide BUN 22 H Creatinine Glucose 149 H POC Glucose Lactic Acid Calcium 7.8 L Ferritin AST ALT Lactate Dehydrogenase 483 H C-Reactive Protein 2.30 H Total Protein 4.9 L Albumin 3.0 L Triglycerides Arterial Blood Glucose Arterial Blood Ionized Calcium Urine Creatinine Urine Total Protein Vancomycin Trough Coronavirus (PCR) SARS-CoV-2 IgG Ab 07/11/20 07/11/20 07/11/20 09:11 12:16 17:55 WBC RBC Hgb Hct MCH MCHC RDW Plt Count Lymph % (Auto) Lymph # (Auto) Seg Neutrophils % Seg Neuts % (Manual) Lymphocytes % (Manual) Eosinophils % (Manual) Nucleated RBC % Seg Neutrophils # Seg Neutrophils # Man Lymphocytes # (Manual) Eosinophils # (Manual) PT INR D-Dimer Heparin Anti-Xa Level ABG pH POC ABG pCO2 POC ABG pO2 ABG pO2 ABG HCO3 ABG O2 Saturation ABG Base Excess ABG Hemoglobin ABG Oxyhemoglobin ABG Sodium ABG Potassium ABG Chloride ABG Glucose Oxyhemoglobin Carboxyhemoglobin Sodium Potassium Chloride Carbon Dioxide BUN Creatinine Glucose POC Glucose 157 H 166 H Lactic Acid Calcium Ferritin 371.2 H AST ALT Lactate Dehydrogenase C-Reactive Protein Total Protein Albumin Triglycerides Arterial Blood Glucose Arterial Blood Ionized Calcium Urine Creatinine Urine Total Protein Vancomycin Trough Coronavirus (PCR) SARS-CoV-2 IgG Ab 07/12/20 07/12/20 07/12/20 00:32 04:00 04:00 WBC RBC 3.52 L Hgb Hct MCH MCHC RDW Plt Count Lymph % (Auto) Lymph # (Auto) Seg Neutrophils % Seg Neuts % (Manual) 90.0 H Lymphocytes % (Manual) 4.0 L Eosinophils % (Manual) Nucleated RBC % Seg Neutrophils # Seg Neutrophils # Man 9.5 H Lymphocytes # (Manual) 0.4 L Eosinophils # (Manual) PT INR D-Dimer Heparin Anti-Xa Level ABG pH POC ABG pCO2 POC ABG pO2 ABG pO2 ABG HCO3 ABG O2 Saturation ABG Base Excess ABG Hemoglobin ABG Oxyhemoglobin ABG Sodium ABG Potassium ABG Chloride ABG Glucose Oxyhemoglobin Carboxyhemoglobin Sodium Potassium Chloride Carbon Dioxide 31 H BUN 21 H Creatinine Glucose 175 H POC Glucose 178 H Lactic Acid Calcium 8.0 L Ferritin AST ALT Lactate Dehydrogenase C-Reactive Protein Total Protein 5.4 L Albumin 3.0 L Triglycerides Arterial Blood Glucose Arterial Blood Ionized Calcium Urine Creatinine Urine Total Protein Vancomycin Trough Coronavirus (PCR) SARS-CoV-2 IgG Ab 07/12/20 07/12/20 07/12/20 04:01 05:47 12:09 WBC RBC Hgb Hct MCH MCHC RDW Plt Count Lymph % (Auto) Lymph # (Auto) Seg Neutrophils % Seg Neuts % (Manual) Lymphocytes % (Manual) Eosinophils % (Manual) Nucleated RBC % Seg Neutrophils # Seg Neutrophils # Man Lymphocytes # (Manual) Eosinophils # (Manual) PT INR D-Dimer Heparin Anti-Xa Level ABG pH 7.465 H POC ABG pCO2 POC ABG pO2 ABG pO2 ABG HCO3 ABG O2 Saturation ABG Base Excess ABG Hemoglobin 10.6 L ABG Oxyhemoglobin ABG Sodium ABG Potassium ABG Chloride ABG Glucose 177 H Oxyhemoglobin Carboxyhemoglobin Sodium Potassium Chloride Carbon Dioxide BUN Creatinine Glucose POC Glucose 185 H 227 H Lactic Acid Calcium Ferritin AST ALT Lactate Dehydrogenase C-Reactive Protein Total Protein Albumin Triglycerides Arterial Blood Glucose 177 H Arterial Blood Ionized Calcium 4.5 L Urine Creatinine Urine Total Protein Vancomycin Trough Coronavirus (PCR) SARS-CoV-2 IgG Ab 07/12/20 07/12/20 07/13/20 17:34 23:57 05:06 WBC RBC Hgb Hct MCH MCHC RDW Plt Count Lymph % (Auto) Lymph # (Auto) Seg Neutrophils % Seg Neuts % (Manual) Lymphocytes % (Manual) Eosinophils % (Manual) Nucleated RBC % Seg Neutrophils # Seg Neutrophils # Man Lymphocytes # (Manual) Eosinophils # (Manual) PT INR D-Dimer Heparin Anti-Xa Level ABG pH POC ABG pCO2 POC ABG pO2 ABG pO2 ABG HCO3 ABG O2 Saturation ABG Base Excess ABG Hemoglobin ABG Oxyhemoglobin ABG Sodium ABG Potassium ABG Chloride ABG Glucose Oxyhemoglobin Carboxyhemoglobin Sodium Potassium Chloride Carbon Dioxide BUN Creatinine Glucose POC Glucose 202 H 163 H 166 H Lactic Acid Calcium Ferritin AST ALT Lactate Dehydrogenase C-Reactive Protein Total Protein Albumin Triglycerides Arterial Blood Glucose Arterial Blood Ionized Calcium Urine Creatinine Urine Total Protein Vancomycin Trough Coronavirus (PCR) SARS-CoV-2 IgG Ab 07/13/20 07/13/20 07/13/20 07:20 07:20 07:20 WBC 20.5 H RBC Hgb Hct MCH MCHC RDW Plt Count Lymph % (Auto) Lymph # (Auto) Seg Neutrophils % Seg Neuts % (Manual) 93.0 H Lymphocytes % (Manual) 3.0 L Eosinophils % (Manual) Nucleated RBC % Seg Neutrophils # Seg Neutrophils # Man 19.1 H Lymphocytes # (Manual) 0.6 L Eosinophils # (Manual) PT INR D-Dimer 826.36 H Heparin Anti-Xa Level ABG pH POC ABG pCO2 POC ABG pO2 ABG pO2 ABG HCO3 ABG O2 Saturation ABG Base Excess ABG Hemoglobin ABG Oxyhemoglobin ABG Sodium ABG Potassium ABG Chloride ABG Glucose Oxyhemoglobin Carboxyhemoglobin Sodium Potassium Chloride Carbon Dioxide 31 H BUN 25 H Creatinine Glucose 163 H POC Glucose Lactic Acid Calcium 8.1 L Ferritin AST ALT Lactate Dehydrogenase 512 H C-Reactive Protein 1.80 H Total Protein 5.8 L Albumin 3.2 L Triglycerides Arterial Blood Glucose Arterial Blood Ionized Calcium Urine Creatinine Urine Total Protein Vancomycin Trough Coronavirus (PCR) SARS-CoV-2 IgG Ab 07/13/20 07/13/20 07/13/20 07:20 11:37 17:20 WBC RBC Hgb Hct MCH MCHC RDW Plt Count Lymph % (Auto) Lymph # (Auto) Seg Neutrophils % Seg Neuts % (Manual) Lymphocytes % (Manual) Eosinophils % (Manual) Nucleated RBC % Seg Neutrophils # Seg Neutrophils # Man Lymphocytes # (Manual) Eosinophils # (Manual) PT INR D-Dimer Heparin Anti-Xa Level ABG pH POC ABG pCO2 POC ABG pO2 ABG pO2 ABG HCO3 ABG O2 Saturation ABG Base Excess ABG Hemoglobin ABG Oxyhemoglobin ABG Sodium ABG Potassium ABG Chloride ABG Glucose Oxyhemoglobin Carboxyhemoglobin Sodium Potassium Chloride Carbon Dioxide BUN Creatinine Glucose POC Glucose 232 H 210 H Lactic Acid Calcium Ferritin 219.8 H AST ALT Lactate Dehydrogenase C-Reactive Protein Total Protein Albumin Triglycerides Arterial Blood Glucose Arterial Blood Ionized Calcium Urine Creatinine Urine Total Protein Vancomycin Trough Coronavirus (PCR) SARS-CoV-2 IgG Ab 07/13/20 07/13/20 07/14/20 23:57 Unknown 05:22 WBC RBC Hgb Hct MCH MCHC RDW Plt Count Lymph % (Auto) Lymph # (Auto) Seg Neutrophils % Seg Neuts % (Manual) Lymphocytes % (Manual) Eosinophils % (Manual) Nucleated RBC % Seg Neutrophils # Seg Neutrophils # Man Lymphocytes # (Manual) Eosinophils # (Manual) PT INR D-Dimer Heparin Anti-Xa Level ABG pH 7.341 L POC ABG pCO2 POC ABG pO2 133.0 H ABG pO2 56.5 L ABG HCO3 29.7 H ABG O2 Saturation 89.3 L ABG Base Excess ABG Hemoglobin 11.0 L ABG Oxyhemoglobin ABG Sodium ABG Potassium ABG Chloride ABG Glucose 207 H Oxyhemoglobin 87.7 L Carboxyhemoglobin Sodium Potassium Chloride Carbon Dioxide BUN Creatinine Glucose POC Glucose 190 H Lactic Acid Calcium Ferritin AST ALT Lactate Dehydrogenase C-Reactive Protein Total Protein Albumin Triglycerides Arterial Blood Glucose 207 H Arterial Blood Ionized Calcium 4.5 L Urine Creatinine Urine Total Protein Vancomycin Trough Coronavirus (PCR) SARS-CoV-2 IgG Ab 07/14/20 07/14/20 07/14/20 05:54 11:16 17:50 WBC RBC Hgb Hct MCH MCHC RDW Plt Count Lymph % (Auto) Lymph # (Auto) Seg Neutrophils % Seg Neuts % (Manual) Lymphocytes % (Manual) Eosinophils % (Manual) Nucleated RBC % Seg Neutrophils # Seg Neutrophils # Man Lymphocytes # (Manual) Eosinophils # (Manual) PT INR D-Dimer Heparin Anti-Xa Level ABG pH POC ABG pCO2 POC ABG pO2 ABG pO2 ABG HCO3 ABG O2 Saturation ABG Base Excess ABG Hemoglobin ABG Oxyhemoglobin ABG Sodium ABG Potassium ABG Chloride ABG Glucose Oxyhemoglobin Carboxyhemoglobin Sodium Potassium Chloride Carbon Dioxide BUN Creatinine Glucose POC Glucose 206 H 196 H 205 H Lactic Acid Calcium Ferritin AST ALT Lactate Dehydrogenase C-Reactive Protein Total Protein Albumin Triglycerides Arterial Blood Glucose Arterial Blood Ionized Calcium Urine Creatinine Urine Total Protein Vancomycin Trough Coronavirus (PCR) SARS-CoV-2 IgG Ab 07/14/20 07/15/20 07/15/20 23:28 03:16 06:12 WBC RBC Hgb Hct MCH MCHC RDW Plt Count Lymph % (Auto) Lymph # (Auto) Seg Neutrophils % Seg Neuts % (Manual) Lymphocytes % (Manual) Eosinophils % (Manual) Nucleated RBC % Seg Neutrophils # Seg Neutrophils # Man Lymphocytes # (Manual) Eosinophils # (Manual) PT INR D-Dimer Heparin Anti-Xa Level ABG pH POC ABG pCO2 49.2 H POC ABG pO2 120.3 H ABG pO2 ABG HCO3 ABG O2 Saturation ABG Base Excess ABG Hemoglobin 9.5 L ABG Oxyhemoglobin ABG Sodium ABG Potassium ABG Chloride ABG Glucose 148 H Oxyhemoglobin Carboxyhemoglobin Sodium Potassium Chloride Carbon Dioxide BUN Creatinine Glucose POC Glucose 160 H 178 H Lactic Acid Calcium Ferritin AST ALT Lactate Dehydrogenase C-Reactive Protein Total Protein Albumin Triglycerides Arterial Blood Glucose 148 H Arterial Blood Ionized Calcium Urine Creatinine Urine Total Protein Vancomycin Trough Coronavirus (PCR) SARS-CoV-2 IgG Ab 07/15/20 07/15/20 07/15/20 09:00 12:32 14:30 WBC RBC Hgb Hct MCH MCHC RDW Plt Count Lymph % (Auto) Lymph # (Auto) Seg Neutrophils % Seg Neuts % (Manual) Lymphocytes % (Manual) Eosinophils % (Manual) Nucleated RBC % Seg Neutrophils # Seg Neutrophils # Man Lymphocytes # (Manual) Eosinophils # (Manual) PT INR D-Dimer Heparin Anti-Xa Level ABG pH POC ABG pCO2 POC ABG pO2 ABG pO2 ABG HCO3 ABG O2 Saturation ABG Base Excess ABG Hemoglobin ABG Oxyhemoglobin ABG Sodium ABG Potassium ABG Chloride ABG Glucose Oxyhemoglobin Carboxyhemoglobin Sodium Potassium Chloride Carbon Dioxide BUN Creatinine Glucose POC Glucose 173 H Lactic Acid Calcium Ferritin AST ALT Lactate Dehydrogenase 531 H C-Reactive Protein Total Protein Albumin Triglycerides Arterial Blood Glucose Arterial Blood Ionized Calcium Urine Creatinine Urine Total Protein Vancomycin Trough Coronavirus (PCR) SARS-CoV-2 IgG Ab Reactive A 07/15/20 07/15/20 07/16/20 18:24 23:35 04:03 WBC RBC Hgb Hct MCH MCHC RDW Plt Count Lymph % (Auto) Lymph # (Auto) Seg Neutrophils % Seg Neuts % (Manual) Lymphocytes % (Manual) Eosinophils % (Manual) Nucleated RBC % Seg Neutrophils # Seg Neutrophils # Man Lymphocytes # (Manual) Eosinophils # (Manual) PT INR D-Dimer Heparin Anti-Xa Level ABG pH POC ABG pCO2 POC ABG pO2 ABG pO2 72.7 L ABG HCO3 35.5 H ABG O2 Saturation ABG Base Excess 9.4 H ABG Hemoglobin 10.6 L ABG Oxyhemoglobin ABG Sodium ABG Potassium ABG Chloride ABG Glucose Oxyhemoglobin 93.6 L Carboxyhemoglobin Sodium Potassium Chloride Carbon Dioxide BUN Creatinine Glucose POC Glucose 173 H 181 H Lactic Acid Calcium Ferritin AST ALT Lactate Dehydrogenase C-Reactive Protein Total Protein Albumin Triglycerides Arterial Blood Glucose Arterial Blood Ionized Calcium Urine Creatinine Urine Total Protein Vancomycin Trough Coronavirus (PCR) SARS-CoV-2 IgG Ab 07/16/20 07/16/20 07/16/20 05:35 09:00 09:00 WBC 16.5 H RBC 3.59 L Hgb Hct MCH MCHC RDW Plt Count Lymph % (Auto) Lymph # (Auto) Seg Neutrophils % Seg Neuts % (Manual) 96.0 H Lymphocytes % (Manual) 3.0 L Eosinophils % (Manual) Nucleated RBC % Seg Neutrophils # Seg Neutrophils # Man 15.8 H Lymphocytes # (Manual) 0.5 L Eosinophils # (Manual) PT INR D-Dimer Heparin Anti-Xa Level ABG pH POC ABG pCO2 POC ABG pO2 ABG pO2 ABG HCO3 ABG O2 Saturation ABG Base Excess ABG Hemoglobin ABG Oxyhemoglobin ABG Sodium ABG Potassium ABG Chloride ABG Glucose Oxyhemoglobin Carboxyhemoglobin Sodium Potassium Chloride Carbon Dioxide 39 H D BUN 25 H Creatinine 0.4 L Glucose 167 H POC Glucose 129 H Lactic Acid Calcium 8.3 L Ferritin AST ALT Lactate Dehydrogenase C-Reactive Protein Total Protein Albumin Triglycerides Arterial Blood Glucose Arterial Blood Ionized Calcium Urine Creatinine Urine Total Protein Vancomycin Trough Coronavirus (PCR) SARS-CoV-2 IgG Ab 07/16/20 07/16/20 07/17/20 12:32 18:28 00:09 WBC RBC Hgb Hct MCH MCHC RDW Plt Count Lymph % (Auto) Lymph # (Auto) Seg Neutrophils % Seg Neuts % (Manual) Lymphocytes % (Manual) Eosinophils % (Manual) Nucleated RBC % Seg Neutrophils # Seg Neutrophils # Man Lymphocytes # (Manual) Eosinophils # (Manual) PT INR D-Dimer Heparin Anti-Xa Level ABG pH POC ABG pCO2 POC ABG pO2 ABG pO2 ABG HCO3 ABG O2 Saturation ABG Base Excess ABG Hemoglobin ABG Oxyhemoglobin ABG Sodium ABG Potassium ABG Chloride ABG Glucose Oxyhemoglobin Carboxyhemoglobin Sodium Potassium Chloride Carbon Dioxide BUN Creatinine Glucose POC Glucose 187 H 174 H 184 H Lactic Acid Calcium Ferritin AST ALT Lactate Dehydrogenase C-Reactive Protein Total Protein Albumin Triglycerides Arterial Blood Glucose Arterial Blood Ionized Calcium Urine Creatinine Urine Total Protein Vancomycin Trough Coronavirus (PCR) SARS-CoV-2 IgG Ab 07/17/20 07/17/20 07/17/20 04:30 05:47 13:03 WBC RBC Hgb Hct MCH MCHC RDW Plt Count Lymph % (Auto) Lymph # (Auto) Seg Neutrophils % Seg Neuts % (Manual) Lymphocytes % (Manual) Eosinophils % (Manual) Nucleated RBC % Seg Neutrophils # Seg Neutrophils # Man Lymphocytes # (Manual) Eosinophils # (Manual) PT INR D-Dimer Heparin Anti-Xa Level ABG pH POC ABG pCO2 POC ABG pO2 ABG pO2 ABG HCO3 38.1 H ABG O2 Saturation ABG Base Excess 11.3 H ABG Hemoglobin 10.5 L ABG Oxyhemoglobin ABG Sodium ABG Potassium ABG Chloride ABG Glucose Oxyhemoglobin Carboxyhemoglobin Sodium Potassium Chloride Carbon Dioxide BUN Creatinine Glucose POC Glucose 135 H 210 H Lactic Acid Calcium Ferritin AST ALT Lactate Dehydrogenase C-Reactive Protein Total Protein Albumin Triglycerides Arterial Blood Glucose Arterial Blood Ionized Calcium Urine Creatinine Urine Total Protein Vancomycin Trough Coronavirus (PCR) SARS-CoV-2 IgG Ab 07/17/20 07/17/20 07/18/20 16:50 23:39 04:01 WBC RBC Hgb Hct MCH MCHC RDW Plt Count Lymph % (Auto) Lymph # (Auto) Seg Neutrophils % Seg Neuts % (Manual) Lymphocytes % (Manual) Eosinophils % (Manual) Nucleated RBC % Seg Neutrophils # Seg Neutrophils # Man Lymphocytes # (Manual) Eosinophils # (Manual) PT INR D-Dimer Heparin Anti-Xa Level ABG pH POC ABG pCO2 56.8 H POC ABG pO2 61.9 L ABG pO2 ABG HCO3 ABG O2 Saturation ABG Base Excess ABG Hemoglobin 11.7 L ABG Oxyhemoglobin ABG Sodium 134.2 L ABG Potassium 4.7 H ABG Chloride 97.0 L ABG Glucose 173 H Oxyhemoglobin Carboxyhemoglobin Sodium Potassium Chloride Carbon Dioxide BUN Creatinine Glucose POC Glucose 193 H 163 H Lactic Acid Calcium Ferritin AST ALT Lactate Dehydrogenase C-Reactive Protein Total Protein Albumin Triglycerides Arterial Blood Glucose 173 H Arterial Blood Ionized Calcium Urine Creatinine Urine Total Protein Vancomycin Trough Coronavirus (PCR) SARS-CoV-2 IgG Ab 07/18/20 07/18/20 07/18/20 05:41 12:03 17:26 WBC RBC Hgb Hct MCH MCHC RDW Plt Count Lymph % (Auto) Lymph # (Auto) Seg Neutrophils % Seg Neuts % (Manual) Lymphocytes % (Manual) Eosinophils % (Manual) Nucleated RBC % Seg Neutrophils # Seg Neutrophils # Man Lymphocytes # (Manual) Eosinophils # (Manual) PT INR D-Dimer Heparin Anti-Xa Level ABG pH POC ABG pCO2 POC ABG pO2 ABG pO2 ABG HCO3 ABG O2 Saturation ABG Base Excess ABG Hemoglobin ABG Oxyhemoglobin ABG Sodium ABG Potassium ABG Chloride ABG Glucose Oxyhemoglobin Carboxyhemoglobin Sodium Potassium Chloride Carbon Dioxide BUN Creatinine Glucose POC Glucose 153 H 177 H 160 H Lactic Acid Calcium Ferritin AST ALT Lactate Dehydrogenase C-Reactive Protein Total Protein Albumin Triglycerides Arterial Blood Glucose Arterial Blood Ionized Calcium Urine Creatinine Urine Total Protein Vancomycin Trough Coronavirus (PCR) SARS-CoV-2 IgG Ab 07/18/20 07/19/20 07/19/20 23:58 04:15 05:05 WBC RBC Hgb Hct MCH MCHC RDW Plt Count Lymph % (Auto) Lymph # (Auto) Seg Neutrophils % Seg Neuts % (Manual) Lymphocytes % (Manual) Eosinophils % (Manual) Nucleated RBC % Seg Neutrophils # Seg Neutrophils # Man Lymphocytes # (Manual) Eosinophils # (Manual) PT INR D-Dimer Heparin Anti-Xa Level ABG pH 7.465 H POC ABG pCO2 49.1 H POC ABG pO2 49.4 L ABG pO2 ABG HCO3 ABG O2 Saturation ABG Base Excess ABG Hemoglobin 11.6 L ABG Oxyhemoglobin ABG Sodium 132.3 L ABG Potassium ABG Chloride 97.0 L ABG Glucose 148 H Oxyhemoglobin Carboxyhemoglobin Sodium Potassium Chloride Carbon Dioxide BUN Creatinine Glucose POC Glucose 144 H 117 H Lactic Acid Calcium Ferritin AST ALT Lactate Dehydrogenase C-Reactive Protein Total Protein Albumin Triglycerides Arterial Blood Glucose 148 H Arterial Blood Ionized Calcium Urine Creatinine Urine Total Protein Vancomycin Trough Coronavirus (PCR) SARS-CoV-2 IgG Ab 07/19/20 07/19/20 07/19/20 08:30 08:30 13:21 WBC 17.2 H RBC 3.59 L Hgb Hct MCH MCHC RDW Plt Count Lymph % (Auto) Lymph # (Auto) Seg Neutrophils % Seg Neuts % (Manual) Lymphocytes % (Manual) Eosinophils % (Manual) Nucleated RBC % Seg Neutrophils # Seg Neutrophils # Man Lymphocytes # (Manual) Eosinophils # (Manual) PT INR D-Dimer Heparin Anti-Xa Level ABG pH POC ABG pCO2 POC ABG pO2 ABG pO2 ABG HCO3 ABG O2 Saturation ABG Base Excess ABG Hemoglobin ABG Oxyhemoglobin ABG Sodium ABG Potassium ABG Chloride ABG Glucose Oxyhemoglobin Carboxyhemoglobin Sodium Potassium Chloride 95.7 L Carbon Dioxide 37 H BUN 20 H Creatinine 0.4 L Glucose 125 H POC Glucose 137 H Lactic Acid Calcium 8.1 L Ferritin AST ALT Lactate Dehydrogenase C-Reactive Protein Total Protein Albumin Triglycerides Arterial Blood Glucose Arterial Blood Ionized Calcium Urine Creatinine Urine Total Protein Vancomycin Trough Coronavirus (PCR) SARS-CoV-2 IgG Ab 07/19/20 07/19/20 07/20/20 16:29 17:28 00:25 WBC RBC Hgb Hct MCH MCHC RDW Plt Count Lymph % (Auto) Lymph # (Auto) Seg Neutrophils % Seg Neuts % (Manual) Lymphocytes % (Manual) Eosinophils % (Manual) Nucleated RBC % Seg Neutrophils # Seg Neutrophils # Man Lymphocytes # (Manual) Eosinophils # (Manual) PT INR D-Dimer Heparin Anti-Xa Level ABG pH POC ABG pCO2 53.4 H POC ABG pO2 71.0 L ABG pO2 ABG HCO3 ABG O2 Saturation ABG Base Excess ABG Hemoglobin 11.2 L ABG Oxyhemoglobin 93.6 L ABG Sodium 130.9 L ABG Potassium ABG Chloride 95.0 L ABG Glucose 188 H Oxyhemoglobin Carboxyhemoglobin Sodium Potassium Chloride Carbon Dioxide BUN Creatinine Glucose POC Glucose 174 H 188 H Lactic Acid Calcium Ferritin AST ALT Lactate Dehydrogenase C-Reactive Protein Total Protein Albumin Triglycerides Arterial Blood Glucose 188 H Arterial Blood Ionized Calcium 4.4 L Urine Creatinine Urine Total Protein Vancomycin Trough Coronavirus (PCR) SARS-CoV-2 IgG Ab 07/20/20 07/20/20 07/20/20 04:14 05:23 12:12 WBC RBC Hgb Hct MCH MCHC RDW Plt Count Lymph % (Auto) Lymph # (Auto) Seg Neutrophils % Seg Neuts % (Manual) Lymphocytes % (Manual) Eosinophils % (Manual) Nucleated RBC % Seg Neutrophils # Seg Neutrophils # Man Lymphocytes # (Manual) Eosinophils # (Manual) PT INR D-Dimer Heparin Anti-Xa Level ABG pH POC ABG pCO2 52.7 H POC ABG pO2 59.5 L ABG pO2 ABG HCO3 ABG O2 Saturation ABG Base Excess ABG Hemoglobin 10.6 L ABG Oxyhemoglobin ABG Sodium 134.4 L ABG Potassium ABG Chloride ABG Glucose 176 H Oxyhemoglobin Carboxyhemoglobin Sodium Potassium Chloride Carbon Dioxide BUN Creatinine Glucose POC Glucose 212 H 190 H Lactic Acid Calcium Ferritin AST ALT Lactate Dehydrogenase C-Reactive Protein Total Protein Albumin Triglycerides Arterial Blood Glucose 176 H Arterial Blood Ionized Calcium 4.5 L Urine Creatinine Urine Total Protein Vancomycin Trough Coronavirus (PCR) SARS-CoV-2 IgG Ab 07/20/20 07/21/20 07/21/20 16:59 00:01 04:30 WBC RBC Hgb Hct MCH MCHC RDW Plt Count Lymph % (Auto) Lymph # (Auto) Seg Neutrophils % Seg Neuts % (Manual) Lymphocytes % (Manual) Eosinophils % (Manual) Nucleated RBC % Seg Neutrophils # Seg Neutrophils # Man Lymphocytes # (Manual) Eosinophils # (Manual) PT INR D-Dimer Heparin Anti-Xa Level ABG pH 7.468 H POC ABG pCO2 POC ABG pO2 63.3 L ABG pO2 ABG HCO3 ABG O2 Saturation ABG Base Excess ABG Hemoglobin 11 L ABG Oxyhemoglobin ABG Sodium 135.0 L ABG Potassium ABG Chloride ABG Glucose 204 H Oxyhemoglobin Carboxyhemoglobin Sodium Potassium Chloride Carbon Dioxide BUN Creatinine Glucose POC Glucose 201 H 177 H Lactic Acid Calcium Ferritin AST ALT Lactate Dehydrogenase C-Reactive Protein Total Protein Albumin Triglycerides Arterial Blood Glucose 204 H Arterial Blood Ionized Calcium 4.5 L Urine Creatinine Urine Total Protein Vancomycin Trough Coronavirus (PCR) SARS-CoV-2 IgG Ab 07/21/20 07/21/20 07/21/20 05:26 11:50 17:16 WBC RBC Hgb Hct MCH MCHC RDW Plt Count Lymph % (Auto) Lymph # (Auto) Seg Neutrophils % Seg Neuts % (Manual) Lymphocytes % (Manual) Eosinophils % (Manual) Nucleated RBC % Seg Neutrophils # Seg Neutrophils # Man Lymphocytes # (Manual) Eosinophils # (Manual) PT INR D-Dimer Heparin Anti-Xa Level ABG pH POC ABG pCO2 POC ABG pO2 ABG pO2 ABG HCO3 ABG O2 Saturation ABG Base Excess ABG Hemoglobin ABG Oxyhemoglobin ABG Sodium ABG Potassium ABG Chloride ABG Glucose Oxyhemoglobin Carboxyhemoglobin Sodium Potassium Chloride Carbon Dioxide BUN Creatinine Glucose POC Glucose 175 H 157 H 148 H Lactic Acid Calcium Ferritin AST ALT Lactate Dehydrogenase C-Reactive Protein Total Protein Albumin Triglycerides Arterial Blood Glucose Arterial Blood Ionized Calcium Urine Creatinine Urine Total Protein Vancomycin Trough Coronavirus (PCR) SARS-CoV-2 IgG Ab 07/22/20 07/22/20 07/22/20 00:01 03:26 05:16 WBC RBC Hgb Hct MCH MCHC RDW Plt Count Lymph % (Auto) Lymph # (Auto) Seg Neutrophils % Seg Neuts % (Manual) Lymphocytes % (Manual) Eosinophils % (Manual) Nucleated RBC % Seg Neutrophils # Seg Neutrophils # Man Lymphocytes # (Manual) Eosinophils # (Manual) PT INR D-Dimer Heparin Anti-Xa Level ABG pH POC ABG pCO2 POC ABG pO2 54.2 L ABG pO2 ABG HCO3 ABG O2 Saturation ABG Base Excess ABG Hemoglobin 10.9 L ABG Oxyhemoglobin ABG Sodium 133.7 L ABG Potassium ABG Chloride ABG Glucose 217 H Oxyhemoglobin Carboxyhemoglobin Sodium Potassium Chloride Carbon Dioxide BUN Creatinine Glucose POC Glucose 172 H 182 H Lactic Acid Calcium Ferritin AST ALT Lactate Dehydrogenase C-Reactive Protein Total Protein Albumin Triglycerides Arterial Blood Glucose 217 H Arterial Blood Ionized Calcium 4.5 L Urine Creatinine Urine Total Protein Vancomycin Trough Coronavirus (PCR) SARS-CoV-2 IgG Ab 07/22/20 07/22/20 07/23/20 11:43 17:08 04:00 WBC 11.6 H RBC 3.54 L Hgb Hct MCH MCHC RDW Plt Count Lymph % (Auto) Lymph # (Auto) Seg Neutrophils % Seg Neuts % (Manual) 94.0 H Lymphocytes % (Manual) 5.0 L Eosinophils % (Manual) Nucleated RBC % Seg Neutrophils # Seg Neutrophils # Man 10.9 H Lymphocytes # (Manual) 0.6 L Eosinophils # (Manual) PT INR D-Dimer Heparin Anti-Xa Level ABG pH POC ABG pCO2 POC ABG pO2 ABG pO2 ABG HCO3 ABG O2 Saturation ABG Base Excess ABG Hemoglobin ABG Oxyhemoglobin ABG Sodium ABG Potassium ABG Chloride ABG Glucose Oxyhemoglobin Carboxyhemoglobin Sodium Potassium Chloride Carbon Dioxide BUN Creatinine Glucose POC Glucose 159 H 163 H Lactic Acid Calcium Ferritin AST ALT Lactate Dehydrogenase C-Reactive Protein Total Protein Albumin Triglycerides Arterial Blood Glucose Arterial Blood Ionized Calcium Urine Creatinine Urine Total Protein Vancomycin Trough Coronavirus (PCR) SARS-CoV-2 IgG Ab 07/23/20 07/23/20 07/23/20 04:00 04:53 04:54 WBC RBC Hgb Hct MCH MCHC RDW Plt Count Lymph % (Auto) Lymph # (Auto) Seg Neutrophils % Seg Neuts % (Manual) Lymphocytes % (Manual) Eosinophils % (Manual) Nucleated RBC % Seg Neutrophils # Seg Neutrophils # Man Lymphocytes # (Manual) Eosinophils # (Manual) PT INR D-Dimer Heparin Anti-Xa Level ABG pH 7.453 H POC ABG pCO2 POC ABG pO2 ABG pO2 ABG HCO3 32.4 H ABG O2 Saturation ABG Base Excess 7.5 H ABG Hemoglobin 10.7 L ABG Oxyhemoglobin ABG Sodium ABG Potassium ABG Chloride ABG Glucose Oxyhemoglobin Carboxyhemoglobin Sodium Potassium Chloride Carbon Dioxide 35 H BUN Creatinine 0.4 L Glucose 112 H POC Glucose 169 H Lactic Acid Calcium 8.2 L Ferritin AST ALT Lactate Dehydrogenase C-Reactive Protein Total Protein Albumin Triglycerides Arterial Blood Glucose Arterial Blood Ionized Calcium Urine Creatinine Urine Total Protein Vancomycin Trough Coronavirus (PCR) SARS-CoV-2 IgG Ab 07/23/20 07/23/20 07/23/20 11:50 23:19 Unknown WBC RBC Hgb Hct MCH MCHC RDW Plt Count Lymph % (Auto) Lymph # (Auto) Seg Neutrophils % Seg Neuts % (Manual) Lymphocytes % (Manual) Eosinophils % (Manual) Nucleated RBC % Seg Neutrophils # Seg Neutrophils # Man Lymphocytes # (Manual) Eosinophils # (Manual) PT INR D-Dimer Heparin Anti-Xa Level ABG pH POC ABG pCO2 POC ABG pO2 ABG pO2 ABG HCO3 ABG O2 Saturation ABG Base Excess ABG Hemoglobin ABG Oxyhemoglobin ABG Sodium ABG Potassium ABG Chloride ABG Glucose Oxyhemoglobin Carboxyhemoglobin Sodium Potassium Chloride Carbon Dioxide BUN Creatinine Glucose POC Glucose 118 H 168 H Lactic Acid Calcium Ferritin AST ALT Lactate Dehydrogenase C-Reactive Protein Total Protein Albumin Triglycerides Arterial Blood Glucose Arterial Blood Ionized Calcium Urine Creatinine Urine Total Protein Vancomycin Trough Coronavirus (PCR) Positive A SARS-CoV-2 IgG Ab 07/24/20 07/24/20 07/24/20 04:11 05:37 11:42 WBC RBC Hgb Hct MCH MCHC RDW Plt Count Lymph % (Auto) Lymph # (Auto) Seg Neutrophils % Seg Neuts % (Manual) Lymphocytes % (Manual) Eosinophils % (Manual) Nucleated RBC % Seg Neutrophils # Seg Neutrophils # Man Lymphocytes # (Manual) Eosinophils # (Manual) PT INR D-Dimer Heparin Anti-Xa Level ABG pH POC ABG pCO2 POC ABG pO2 ABG pO2 54.4 L ABG HCO3 34.3 H ABG O2 Saturation 89.0 L ABG Base Excess 8.5 H ABG Hemoglobin 11.0 L ABG Oxyhemoglobin ABG Sodium ABG Potassium ABG Chloride ABG Glucose Oxyhemoglobin 87.0 L Carboxyhemoglobin Sodium Potassium Chloride Carbon Dioxide BUN Creatinine Glucose POC Glucose 115 H 166 H Lactic Acid Calcium Ferritin AST ALT Lactate Dehydrogenase C-Reactive Protein Total Protein Albumin Triglycerides Arterial Blood Glucose Arterial Blood Ionized Calcium Urine Creatinine Urine Total Protein Vancomycin Trough Coronavirus (PCR) SARS-CoV-2 IgG Ab 07/24/20 07/24/20 07/25/20 17:39 23:38 03:53 WBC RBC Hgb Hct MCH MCHC RDW Plt Count Lymph % (Auto) Lymph # (Auto) Seg Neutrophils % Seg Neuts % (Manual) Lymphocytes % (Manual) Eosinophils % (Manual) Nucleated RBC % Seg Neutrophils # Seg Neutrophils # Man Lymphocytes # (Manual) Eosinophils # (Manual) PT INR D-Dimer Heparin Anti-Xa Level ABG pH POC ABG pCO2 POC ABG pO2 ABG pO2 175.9 H ABG HCO3 34.0 H ABG O2 Saturation 99.1 H ABG Base Excess 8.2 H ABG Hemoglobin 10.6 L ABG Oxyhemoglobin ABG Sodium ABG Potassium ABG Chloride ABG Glucose Oxyhemoglobin Carboxyhemoglobin Sodium Potassium Chloride Carbon Dioxide BUN Creatinine Glucose POC Glucose 150 H 139 H Lactic Acid Calcium Ferritin AST ALT Lactate Dehydrogenase C-Reactive Protein Total Protein Albumin Triglycerides Arterial Blood Glucose Arterial Blood Ionized Calcium Urine Creatinine Urine Total Protein Vancomycin Trough Coronavirus (PCR) SARS-CoV-2 IgG Ab 07/25/20 07/25/20 07/25/20 05:47 12:09 23:46 WBC RBC Hgb Hct MCH MCHC RDW Plt Count Lymph % (Auto) Lymph # (Auto) Seg Neutrophils % Seg Neuts % (Manual) Lymphocytes % (Manual) Eosinophils % (Manual) Nucleated RBC % Seg Neutrophils # Seg Neutrophils # Man Lymphocytes # (Manual) Eosinophils # (Manual) PT INR D-Dimer Heparin Anti-Xa Level ABG pH POC ABG pCO2 POC ABG pO2 ABG pO2 ABG HCO3 ABG O2 Saturation ABG Base Excess ABG Hemoglobin ABG Oxyhemoglobin ABG Sodium ABG Potassium ABG Chloride ABG Glucose Oxyhemoglobin Carboxyhemoglobin Sodium Potassium Chloride Carbon Dioxide BUN Creatinine Glucose POC Glucose 144 H 152 H 116 H Lactic Acid Calcium Ferritin AST ALT Lactate Dehydrogenase C-Reactive Protein Total Protein Albumin Triglycerides Arterial Blood Glucose Arterial Blood Ionized Calcium Urine Creatinine Urine Total Protein Vancomycin Trough Coronavirus (PCR) SARS-CoV-2 IgG Ab 07/26/20 07/26/20 07/26/20 03:48 05:36 11:28 WBC RBC Hgb Hct MCH MCHC RDW Plt Count Lymph % (Auto) Lymph # (Auto) Seg Neutrophils % Seg Neuts % (Manual) Lymphocytes % (Manual) Eosinophils % (Manual) Nucleated RBC % Seg Neutrophils # Seg Neutrophils # Man Lymphocytes # (Manual) Eosinophils # (Manual) PT INR D-Dimer Heparin Anti-Xa Level ABG pH POC ABG pCO2 POC ABG pO2 ABG pO2 73.4 L ABG HCO3 35.0 H ABG O2 Saturation ABG Base Excess 8.3 H ABG Hemoglobin 9.8 L ABG Oxyhemoglobin ABG Sodium ABG Potassium ABG Chloride ABG Glucose Oxyhemoglobin 93.7 L Carboxyhemoglobin Sodium Potassium Chloride Carbon Dioxide BUN Creatinine Glucose POC Glucose 136 H 145 H Lactic Acid Calcium Ferritin AST ALT Lactate Dehydrogenase C-Reactive Protein Total Protein Albumin Triglycerides Arterial Blood Glucose Arterial Blood Ionized Calcium Urine Creatinine Urine Total Protein Vancomycin Trough Coronavirus (PCR) SARS-CoV-2 IgG Ab 07/26/20 07/26/20 07/26/20 14:23 17:19 23:33 WBC 12.0 H RBC 3.12 L Hgb 9.5 L Hct 28.6 L MCH MCHC RDW Plt Count Lymph % (Auto) 4.2 L Lymph # (Auto) 0.5 L Seg Neutrophils % 89.8 H Seg Neuts % (Manual) Lymphocytes % (Manual) Eosinophils % (Manual) Nucleated RBC % Seg Neutrophils # 10.8 H Seg Neutrophils # Man Lymphocytes # (Manual) Eosinophils # (Manual) PT INR D-Dimer Heparin Anti-Xa Level ABG pH POC ABG pCO2 POC ABG pO2 ABG pO2 ABG HCO3 ABG O2 Saturation ABG Base Excess ABG Hemoglobin ABG Oxyhemoglobin ABG Sodium ABG Potassium ABG Chloride ABG Glucose Oxyhemoglobin Carboxyhemoglobin Sodium Potassium Chloride Carbon Dioxide BUN Creatinine Glucose POC Glucose 202 H 122 H Lactic Acid Calcium Ferritin AST ALT Lactate Dehydrogenase C-Reactive Protein Total Protein Albumin Triglycerides Arterial Blood Glucose Arterial Blood Ionized Calcium Urine Creatinine Urine Total Protein Vancomycin Trough Coronavirus (PCR) SARS-CoV-2 IgG Ab 07/27/20 07/27/20 07/27/20 04:30 05:54 12:06 WBC RBC Hgb Hct MCH MCHC RDW Plt Count Lymph % (Auto) Lymph # (Auto) Seg Neutrophils % Seg Neuts % (Manual) Lymphocytes % (Manual) Eosinophils % (Manual) Nucleated RBC % Seg Neutrophils # Seg Neutrophils # Man Lymphocytes # (Manual) Eosinophils # (Manual) PT INR D-Dimer Heparin Anti-Xa Level ABG pH POC ABG pCO2 POC ABG pO2 ABG pO2 49.0 L ABG HCO3 35.7 H ABG O2 Saturation 87.6 L ABG Base Excess 10.1 H ABG Hemoglobin 11.5 L ABG Oxyhemoglobin ABG Sodium ABG Potassium ABG Chloride ABG Glucose Oxyhemoglobin 85.4 L Carboxyhemoglobin Sodium Potassium Chloride Carbon Dioxide BUN Creatinine Glucose POC Glucose 164 H 149 H Lactic Acid Calcium Ferritin AST ALT Lactate Dehydrogenase C-Reactive Protein Total Protein Albumin Triglycerides Arterial Blood Glucose Arterial Blood Ionized Calcium Urine Creatinine Urine Total Protein Vancomycin Trough Coronavirus (PCR) SARS-CoV-2 IgG Ab 07/27/20 07/27/20 07/27/20 13:00 14:18 14:18 WBC 12.2 H RBC 3.33 L Hgb 10.0 L Hct MCH MCHC RDW Plt Count Lymph % (Auto) Lymph # (Auto) Seg Neutrophils % Seg Neuts % (Manual) 90.0 H Lymphocytes % (Manual) 7.0 L Eosinophils % (Manual) Nucleated RBC % Seg Neutrophils # Seg Neutrophils # Man 11.0 H Lymphocytes # (Manual) 0.9 L Eosinophils # (Manual) PT INR D-Dimer Heparin Anti-Xa Level ABG pH 7.313 L POC ABG pCO2 POC ABG pO2 ABG pO2 107.5 H ABG HCO3 37.6 H ABG O2 Saturation ABG Base Excess 8.1 H ABG Hemoglobin 10.1 L ABG Oxyhemoglobin ABG Sodium ABG Potassium ABG Chloride ABG Glucose Oxyhemoglobin Carboxyhemoglobin Sodium Potassium Chloride 97.6 L Carbon Dioxide 35 H BUN 18 H Creatinine Glucose 135 H POC Glucose Lactic Acid Calcium 8.3 L Ferritin AST ALT Lactate Dehydrogenase C-Reactive Protein Total Protein Albumin Triglycerides Arterial Blood Glucose Arterial Blood Ionized Calcium Urine Creatinine Urine Total Protein Vancomycin Trough Coronavirus (PCR) SARS-CoV-2 IgG Ab 07/27/20 07/27/20 07/28/20 17:09 23:14 04:15 WBC RBC Hgb Hct MCH MCHC RDW Plt Count Lymph % (Auto) Lymph # (Auto) Seg Neutrophils % Seg Neuts % (Manual) Lymphocytes % (Manual) Eosinophils % (Manual) Nucleated RBC % Seg Neutrophils # Seg Neutrophils # Man Lymphocytes # (Manual) Eosinophils # (Manual) PT INR D-Dimer Heparin Anti-Xa Level ABG pH 7.317 L POC ABG pCO2 POC ABG pO2 ABG pO2 130.3 H ABG HCO3 40.9 H ABG O2 Saturation ABG Base Excess 13.5 H ABG Hemoglobin 5.8 L ABG Oxyhemoglobin ABG Sodium ABG Potassium ABG Chloride ABG Glucose Oxyhemoglobin Carboxyhemoglobin Sodium Potassium Chloride Carbon Dioxide BUN Creatinine Glucose POC Glucose 115 H 139 H Lactic Acid Calcium Ferritin AST ALT Lactate Dehydrogenase C-Reactive Protein Total Protein Albumin Triglycerides Arterial Blood Glucose Arterial Blood Ionized Calcium Urine Creatinine Urine Total Protein Vancomycin Trough Coronavirus (PCR) SARS-CoV-2 IgG Ab 07/28/20 07/28/20 07/28/20 05:34 09:20 09:20 WBC RBC 2.89 L Hgb 9.5 L Hct 26.6 L MCH 33 H MCHC 36 H RDW Plt Count 123 L Lymph % (Auto) Lymph # (Auto) Seg Neutrophils % Seg Neuts % (Manual) 89.0 H Lymphocytes % (Manual) 5.0 L Eosinophils % (Manual) Nucleated RBC % Seg Neutrophils # Seg Neutrophils # Man 8.6 H Lymphocytes # (Manual) 0.5 L Eosinophils # (Manual) PT INR D-Dimer Heparin Anti-Xa Level ABG pH POC ABG pCO2 POC ABG pO2 ABG pO2 ABG HCO3 ABG O2 Saturation ABG Base Excess ABG Hemoglobin ABG Oxyhemoglobin ABG Sodium ABG Potassium ABG Chloride ABG Glucose Oxyhemoglobin Carboxyhemoglobin Sodium 134 L Potassium Chloride 95.6 L Carbon Dioxide 39 H BUN Creatinine 0.3 L Glucose 131 H POC Glucose 130 H Lactic Acid Calcium 7.9 L Ferritin AST ALT Lactate Dehydrogenase C-Reactive Protein Total Protein Albumin Triglycerides Arterial Blood Glucose Arterial Blood Ionized Calcium Urine Creatinine Urine Total Protein Vancomycin Trough Coronavirus (PCR) SARS-CoV-2 IgG Ab 07/28/20 07/28/20 07/28/20 11:50 18:36 23:22 WBC RBC Hgb Hct MCH MCHC RDW Plt Count Lymph % (Auto) Lymph # (Auto) Seg Neutrophils % Seg Neuts % (Manual) Lymphocytes % (Manual) Eosinophils % (Manual) Nucleated RBC % Seg Neutrophils # Seg Neutrophils # Man Lymphocytes # (Manual) Eosinophils # (Manual) PT INR D-Dimer Heparin Anti-Xa Level ABG pH POC ABG pCO2 POC ABG pO2 ABG pO2 ABG HCO3 ABG O2 Saturation ABG Base Excess ABG Hemoglobin ABG Oxyhemoglobin ABG Sodium ABG Potassium ABG Chloride ABG Glucose Oxyhemoglobin Carboxyhemoglobin Sodium Potassium Chloride Carbon Dioxide BUN Creatinine Glucose POC Glucose 128 H 119 H 122 H Lactic Acid Calcium Ferritin AST ALT Lactate Dehydrogenase C-Reactive Protein Total Protein Albumin Triglycerides Arterial Blood Glucose Arterial Blood Ionized Calcium Urine Creatinine Urine Total Protein Vancomycin Trough Coronavirus (PCR) SARS-CoV-2 IgG Ab 07/29/20 07/29/20 07/29/20 03:18 07:54 07:54 WBC 11.1 H RBC 3.49 L Hgb Hct MCH MCHC RDW Plt Count 139 L Lymph % (Auto) Lymph # (Auto) Seg Neutrophils % Seg Neuts % (Manual) 90.0 H Lymphocytes % (Manual) 1.0 L Eosinophils % (Manual) 5.0 H Nucleated RBC % Seg Neutrophils # Seg Neutrophils # Man 10.0 H Lymphocytes # (Manual) 0.1 L Eosinophils # (Manual) 0.6 H PT INR D-Dimer Heparin Anti-Xa Level ABG pH POC ABG pCO2 69.5 H POC ABG pO2 109.3 H ABG pO2 ABG HCO3 ABG O2 Saturation ABG Base Excess ABG Hemoglobin 10.8 L ABG Oxyhemoglobin ABG Sodium ABG Potassium ABG Chloride 95.0 L ABG Glucose 138 H Oxyhemoglobin Carboxyhemoglobin Sodium Potassium Chloride 94.5 L Carbon Dioxide 40 H BUN Creatinine 0.5 L D Glucose 104 H POC Glucose Lactic Acid Calcium Ferritin AST ALT Lactate Dehydrogenase C-Reactive Protein Total Protein Albumin Triglycerides Arterial Blood Glucose 138 H Arterial Blood Ionized Calcium Urine Creatinine Urine Total Protein Vancomycin Trough Coronavirus (PCR) SARS-CoV-2 IgG Ab 07/29/20 07/29/20 07/29/20 11:05 18:17 19:41 WBC RBC Hgb Hct MCH MCHC RDW Plt Count Lymph % (Auto) Lymph # (Auto) Seg Neutrophils % Seg Neuts % (Manual) Lymphocytes % (Manual) Eosinophils % (Manual) Nucleated RBC % Seg Neutrophils # Seg Neutrophils # Man Lymphocytes # (Manual) Eosinophils # (Manual) PT INR D-Dimer Heparin Anti-Xa Level ABG pH 7.305 L POC ABG pCO2 73.3 H 66.7 H POC ABG pO2 28.2 L 32.7 L ABG pO2 ABG HCO3 ABG O2 Saturation ABG Base Excess ABG Hemoglobin 11.8 L 11.5 L ABG Oxyhemoglobin ABG Sodium ABG Potassium ABG Chloride 94.0 L 95.0 L ABG Glucose 207 H 141 H Oxyhemoglobin Carboxyhemoglobin Sodium Potassium Chloride Carbon Dioxide BUN Creatinine Glucose POC Glucose 113 H Lactic Acid Calcium Ferritin AST ALT Lactate Dehydrogenase C-Reactive Protein Total Protein Albumin Triglycerides Arterial Blood Glucose 207 H 141 H Arterial Blood Ionized Calcium 4.5 L Urine Creatinine Urine Total Protein Vancomycin Trough Coronavirus (PCR) SARS-CoV-2 IgG Ab 07/29/20 07/30/20 07/30/20 23:28 04:47 05:28 WBC RBC Hgb Hct MCH MCHC RDW Plt Count Lymph % (Auto) Lymph # (Auto) Seg Neutrophils % Seg Neuts % (Manual) Lymphocytes % (Manual) Eosinophils % (Manual) Nucleated RBC % Seg Neutrophils # Seg Neutrophils # Man Lymphocytes # (Manual) Eosinophils # (Manual) PT INR D-Dimer Heparin Anti-Xa Level ABG pH POC ABG pCO2 55.1 H POC ABG pO2 43.6 L ABG pO2 ABG HCO3 ABG O2 Saturation ABG Base Excess ABG Hemoglobin 11.9 L ABG Oxyhemoglobin ABG Sodium ABG Potassium ABG Chloride 96.0 L ABG Glucose 150 H Oxyhemoglobin Carboxyhemoglobin Sodium Potassium Chloride Carbon Dioxide BUN Creatinine Glucose POC Glucose 121 H 143 H Lactic Acid Calcium Ferritin AST ALT Lactate Dehydrogenase C-Reactive Protein Total Protein Albumin Triglycerides Arterial Blood Glucose 150 H Arterial Blood Ionized Calcium Urine Creatinine Urine Total Protein Vancomycin Trough Coronavirus (PCR) SARS-CoV-2 IgG Ab 07/30/20 07/30/20 07/30/20 08:18 12:00 14:17 WBC RBC Hgb Hct MCH MCHC RDW Plt Count Lymph % (Auto) Lymph # (Auto) Seg Neutrophils % Seg Neuts % (Manual) Lymphocytes % (Manual) Eosinophils % (Manual) Nucleated RBC % Seg Neutrophils # Seg Neutrophils # Man Lymphocytes # (Manual) Eosinophils # (Manual) PT INR D-Dimer Heparin Anti-Xa Level ABG pH POC ABG pCO2 63.3 H 64.6 H POC ABG pO2 47.9 L 41.0 L ABG pO2 ABG HCO3 ABG O2 Saturation ABG Base Excess ABG Hemoglobin 10.5 L 10.2 L ABG Oxyhemoglobin 84.9 L ABG Sodium ABG Potassium ABG Chloride 97.0 L ABG Glucose 170 H 175 H Oxyhemoglobin Carboxyhemoglobin Sodium Potassium Chloride Carbon Dioxide BUN Creatinine Glucose POC Glucose 161 H Lactic Acid Calcium Ferritin AST ALT Lactate Dehydrogenase C-Reactive Protein Total Protein Albumin Triglycerides Arterial Blood Glucose 170 H 175 H Arterial Blood Ionized Calcium 4.4 L 4.4 L Urine Creatinine Urine Total Protein Vancomycin Trough Coronavirus (PCR) SARS-CoV-2 IgG Ab 07/30/20 07/30/20 07/30/20 15:15 15:15 15:15 WBC RBC 2.80 L Hgb 9.1 L Hct 26.0 L D MCH MCHC 35 H RDW Plt Count 101 L Lymph % (Auto) Lymph # (Auto) Seg Neutrophils % Seg Neuts % (Manual) 90.0 H Lymphocytes % (Manual) 7.0 L Eosinophils % (Manual) Nucleated RBC % Seg Neutrophils # Seg Neutrophils # Man Lymphocytes # (Manual) 0.4 L Eosinophils # (Manual) PT INR D-Dimer Heparin Anti-Xa Level ABG pH POC ABG pCO2 POC ABG pO2 ABG pO2 ABG HCO3 ABG O2 Saturation ABG Base Excess ABG Hemoglobin ABG Oxyhemoglobin ABG Sodium ABG Potassium ABG Chloride ABG Glucose Oxyhemoglobin Carboxyhemoglobin Sodium Potassium Chloride 97.1 L Carbon Dioxide 32 H D BUN 39 H Creatinine 1.3 H D Glucose 167 H POC Glucose Lactic Acid Calcium 8.0 L Ferritin AST ALT Lactate Dehydrogenase C-Reactive Protein Total Protein Albumin Triglycerides 837 H Arterial Blood Glucose Arterial Blood Ionized Calcium Urine Creatinine Urine Total Protein Vancomycin Trough Coronavirus (PCR) SARS-CoV-2 IgG Ab 07/30/20 07/30/20 07/30/20 15:15 17:03 17:43 WBC RBC Hgb Hct MCH MCHC RDW Plt Count Lymph % (Auto) Lymph # (Auto) Seg Neutrophils % Seg Neuts % (Manual) Lymphocytes % (Manual) Eosinophils % (Manual) Nucleated RBC % Seg Neutrophils # Seg Neutrophils # Man Lymphocytes # (Manual) Eosinophils # (Manual) PT INR D-Dimer Heparin Anti-Xa Level ABG pH POC ABG pCO2 POC ABG pO2 ABG pO2 ABG HCO3 ABG O2 Saturation ABG Base Excess ABG Hemoglobin ABG Oxyhemoglobin ABG Sodium ABG Potassium ABG Chloride ABG Glucose Oxyhemoglobin Carboxyhemoglobin Sodium Potassium Chloride Carbon Dioxide BUN Creatinine Glucose POC Glucose 171 H Lactic Acid 2.20 H* 3.60 H* Calcium Ferritin AST ALT Lactate Dehydrogenase C-Reactive Protein Total Protein Albumin Triglycerides Arterial Blood Glucose Arterial Blood Ionized Calcium Urine Creatinine Urine Total Protein Vancomycin Trough Coronavirus (PCR) SARS-CoV-2 IgG Ab 07/30/20 07/30/20 07/31/20 20:13 23:37 04:15 WBC RBC Hgb Hct MCH MCHC RDW Plt Count Lymph % (Auto) Lymph # (Auto) Seg Neutrophils % Seg Neuts % (Manual) Lymphocytes % (Manual) Eosinophils % (Manual) Nucleated RBC % Seg Neutrophils # Seg Neutrophils # Man Lymphocytes # (Manual) Eosinophils # (Manual) PT INR D-Dimer Heparin Anti-Xa Level ABG pH 7.544 H 7.489 H POC ABG pCO2 POC ABG pO2 44.4 L 50.0 L ABG pO2 ABG HCO3 ABG O2 Saturation ABG Base Excess ABG Hemoglobin 10.4 L ABG Oxyhemoglobin ABG Sodium 135.3 L ABG Potassium ABG Chloride ABG Glucose 201 H 199 H Oxyhemoglobin Carboxyhemoglobin Sodium Potassium Chloride Carbon Dioxide BUN Creatinine Glucose POC Glucose 160 H Lactic Acid Calcium Ferritin AST ALT Lactate Dehydrogenase C-Reactive Protein Total Protein Albumin Triglycerides Arterial Blood Glucose 201 H 199 H Arterial Blood Ionized Calcium 4.2 L 4.4 L Urine Creatinine Urine Total Protein Vancomycin Trough Coronavirus (PCR) SARS-CoV-2 IgG Ab 07/31/20 07/31/20 07/31/20 05:16 05:16 05:28 WBC RBC 3.03 L Hgb 9.2 L Hct 27.6 L MCH MCHC RDW Plt Count 118 L Lymph % (Auto) 6.3 L Lymph # (Auto) 0.5 L Seg Neutrophils % Seg Neuts % (Manual) Lymphocytes % (Manual) Eosinophils % (Manual) Nucleated RBC % Seg Neutrophils # Seg Neutrophils # Man Lymphocytes # (Manual) Eosinophils # (Manual) PT INR D-Dimer Heparin Anti-Xa Level ABG pH POC ABG pCO2 POC ABG pO2 ABG pO2 ABG HCO3 ABG O2 Saturation ABG Base Excess ABG Hemoglobin ABG Oxyhemoglobin ABG Sodium ABG Potassium ABG Chloride ABG Glucose Oxyhemoglobin Carboxyhemoglobin Sodium Potassium Chloride Carbon Dioxide BUN 57 H Creatinine 1.7 H Glucose 208 H POC Glucose 182 H Lactic Acid Calcium 8.3 L Ferritin AST 613 H ALT 760 H Lactate Dehydrogenase C-Reactive Protein Total Protein 5.6 L Albumin 2.2 L Triglycerides Arterial Blood Glucose Arterial Blood Ionized Calcium Urine Creatinine Urine Total Protein Vancomycin Trough Coronavirus (PCR) SARS-CoV-2 IgG Ab 07/31/20 07/31/20 07/31/20 11:02 14:14 14:14 WBC RBC Hgb Hct MCH MCHC RDW Plt Count Lymph % (Auto) Lymph # (Auto) Seg Neutrophils % Seg Neuts % (Manual) Lymphocytes % (Manual) Eosinophils % (Manual) Nucleated RBC % Seg Neutrophils # Seg Neutrophils # Man Lymphocytes # (Manual) Eosinophils # (Manual) PT INR D-Dimer 2522.40 H Heparin Anti-Xa Level ABG pH POC ABG pCO2 POC ABG pO2 ABG pO2 ABG HCO3 ABG O2 Saturation ABG Base Excess ABG Hemoglobin ABG Oxyhemoglobin ABG Sodium ABG Potassium ABG Chloride ABG Glucose Oxyhemoglobin Carboxyhemoglobin Sodium Potassium Chloride Carbon Dioxide BUN Creatinine Glucose POC Glucose 200 H Lactic Acid Calcium Ferritin 964.8 H AST ALT Lactate Dehydrogenase C-Reactive Protein Total Protein Albumin Triglycerides Arterial Blood Glucose Arterial Blood Ionized Calcium Urine Creatinine Urine Total Protein Vancomycin Trough Coronavirus (PCR) SARS-CoV-2 IgG Ab 07/31/20 07/31/20 07/31/20 14:14 14:14 16:00 WBC RBC Hgb Hct MCH MCHC RDW Plt Count Lymph % (Auto) Lymph # (Auto) Seg Neutrophils % Seg Neuts % (Manual) Lymphocytes % (Manual) Eosinophils % (Manual) Nucleated RBC % Seg Neutrophils # Seg Neutrophils # Man Lymphocytes # (Manual) Eosinophils # (Manual) PT INR D-Dimer Heparin Anti-Xa Level ABG pH POC ABG pCO2 POC ABG pO2 ABG pO2 ABG HCO3 ABG O2 Saturation ABG Base Excess ABG Hemoglobin ABG Oxyhemoglobin ABG Sodium ABG Potassium ABG Chloride ABG Glucose Oxyhemoglobin Carboxyhemoglobin Sodium Potassium Chloride Carbon Dioxide BUN Creatinine Glucose POC Glucose Lactic Acid Calcium Ferritin AST ALT Lactate Dehydrogenase 585 H C-Reactive Protein 49.00 H Total Protein Albumin Triglycerides Arterial Blood Glucose Arterial Blood Ionized Calcium Urine Creatinine 89.2 H Urine Total Protein 108 H Vancomycin Trough 28.2 H Coronavirus (PCR) SARS-CoV-2 IgG Ab 07/31/20 07/31/20 08/01/20 17:22 21:26 00:07 WBC RBC Hgb Hct MCH MCHC RDW Plt Count Lymph % (Auto) Lymph # (Auto) Seg Neutrophils % Seg Neuts % (Manual) Lymphocytes % (Manual) Eosinophils % (Manual) Nucleated RBC % Seg Neutrophils # Seg Neutrophils # Man Lymphocytes # (Manual) Eosinophils # (Manual) PT INR D-Dimer Heparin Anti-Xa Level ABG pH POC ABG pCO2 POC ABG pO2 156.0 H ABG pO2 ABG HCO3 ABG O2 Saturation ABG Base Excess ABG Hemoglobin 9.6 L ABG Oxyhemoglobin 98.4 H ABG Sodium 135.9 L ABG Potassium ABG Chloride ABG Glucose 290 H Oxyhemoglobin Carboxyhemoglobin 0.4 L Sodium Potassium Chloride Carbon Dioxide BUN Creatinine Glucose POC Glucose 229 H 255 H Lactic Acid Calcium Ferritin AST ALT Lactate Dehydrogenase C-Reactive Protein Total Protein Albumin Triglycerides Arterial Blood Glucose 290 H Arterial Blood Ionized Calcium 4.5 L Urine Creatinine Urine Total Protein Vancomycin Trough Coronavirus (PCR) SARS-CoV-2 IgG Ab 08/01/20 08/01/20 08/01/20 04:46 05:30 05:30 WBC RBC 2.27 L Hgb 7.6 L Hct 20.9 L D MCH 34 H MCHC 37 H RDW Plt Count 85 L Lymph % (Auto) Lymph # (Auto) Seg Neutrophils % Seg Neuts % (Manual) 87.0 H Lymphocytes % (Manual) 2.0 L Eosinophils % (Manual) Nucleated RBC % 1.0 H Seg Neutrophils # Seg Neutrophils # Man Lymphocytes # (Manual) 0.1 L Eosinophils # (Manual) PT INR D-Dimer Heparin Anti-Xa Level ABG pH 7.462 H POC ABG pCO2 POC ABG pO2 70.2 L ABG pO2 ABG HCO3 ABG O2 Saturation ABG Base Excess ABG Hemoglobin 8.7 L ABG Oxyhemoglobin ABG Sodium 135.7 L ABG Potassium 3.3 L ABG Chloride ABG Glucose 275 H Oxyhemoglobin Carboxyhemoglobin Sodium 132 L D Potassium 2.8 L* D Chloride Carbon Dioxide BUN 47 H Creatinine Glucose 217 H POC Glucose Lactic Acid Calcium 6.6 L D Ferritin AST 117 H ALT 408 H Lactate Dehydrogenase C-Reactive Protein Total Protein 4.3 L D Albumin 0.6 L Triglycerides 2335 H Arterial Blood Glucose 275 H Arterial Blood Ionized Calcium 4.5 L Urine Creatinine Urine Total Protein Vancomycin Trough Coronavirus (PCR) SARS-CoV-2 IgG Ab 08/01/20 08/01/20 08/01/20 05:34 09:33 11:50 WBC RBC Hgb Hct MCH MCHC RDW Plt Count Lymph % (Auto) Lymph # (Auto) Seg Neutrophils % Seg Neuts % (Manual) Lymphocytes % (Manual) Eosinophils % (Manual) Nucleated RBC % Seg Neutrophils # Seg Neutrophils # Man Lymphocytes # (Manual) Eosinophils # (Manual) PT INR D-Dimer Heparin Anti-Xa Level ABG pH POC ABG pCO2 POC ABG pO2 ABG pO2 ABG HCO3 ABG O2 Saturation ABG Base Excess ABG Hemoglobin ABG Oxyhemoglobin ABG Sodium ABG Potassium ABG Chloride ABG Glucose Oxyhemoglobin Carboxyhemoglobin Sodium Potassium Chloride Carbon Dioxide BUN 57 H Creatinine Glucose 250 H POC Glucose 246 H 239 H Lactic Acid Calcium 8.2 L D Ferritin AST ALT Lactate Dehydrogenase C-Reactive Protein Total Protein Albumin Triglycerides 759 H Arterial Blood Glucose Arterial Blood Ionized Calcium Urine Creatinine Urine Total Protein Vancomycin Trough Coronavirus (PCR) SARS-CoV-2 IgG Ab 08/01/20 08/01/20 08/02/20 17:14 23:21 04:22 WBC RBC Hgb Hct MCH MCHC RDW Plt Count Lymph % (Auto) Lymph # (Auto) Seg Neutrophils % Seg Neuts % (Manual) Lymphocytes % (Manual) Eosinophils % (Manual) Nucleated RBC % Seg Neutrophils # Seg Neutrophils # Man Lymphocytes # (Manual) Eosinophils # (Manual) PT INR D-Dimer Heparin Anti-Xa Level ABG pH 7.268 L POC ABG pCO2 56.6 H POC ABG pO2 ABG pO2 ABG HCO3 ABG O2 Saturation ABG Base Excess ABG Hemoglobin 8.4 L ABG Oxyhemoglobin ABG Sodium ABG Potassium 4.9 H ABG Chloride ABG Glucose 261 H Oxyhemoglobin Carboxyhemoglobin Sodium Potassium Chloride Carbon Dioxide BUN Creatinine Glucose POC Glucose 219 H 242 H Lactic Acid Calcium Ferritin AST ALT Lactate Dehydrogenase C-Reactive Protein Total Protein Albumin Triglycerides Arterial Blood Glucose 261 H Arterial Blood Ionized Calcium Urine Creatinine Urine Total Protein Vancomycin Trough Coronavirus (PCR) SARS-CoV-2 IgG Ab 08/02/20 08/02/20 08/02/20 05:05 06:37 06:37 WBC RBC 3.40 L Hgb 10.0 L Hct MCH MCHC RDW 16.2 H Plt Count 87 L Lymph % (Auto) Lymph # (Auto) Seg Neutrophils % Seg Neuts % (Manual) 82.0 H Lymphocytes % (Manual) 3.0 L Eosinophils % (Manual) Nucleated RBC % 2.0 H Seg Neutrophils # Seg Neutrophils # Man 9.0 H Lymphocytes # (Manual) 0.3 L Eosinophils # (Manual) PT INR D-Dimer Heparin Anti-Xa Level ABG pH POC ABG pCO2 POC ABG pO2 ABG pO2 ABG HCO3 ABG O2 Saturation ABG Base Excess ABG Hemoglobin ABG Oxyhemoglobin ABG Sodium ABG Potassium ABG Chloride ABG Glucose Oxyhemoglobin Carboxyhemoglobin Sodium Potassium 5.3 H D Chloride Carbon Dioxide BUN 53 H Creatinine Glucose 267 H POC Glucose 254 H Lactic Acid Calcium 8.1 L Ferritin AST 43 H ALT 334 H Lactate Dehydrogenase C-Reactive Protein Total Protein 5.4 L D Albumin 1.9 L Triglycerides Arterial Blood Glucose Arterial Blood Ionized Calcium Urine Creatinine Urine Total Protein Vancomycin Trough Coronavirus (PCR) SARS-CoV-2 IgG Ab 08/02/20 08/02/20 08/02/20 06:37 11:34 17:04 WBC RBC Hgb Hct MCH MCHC RDW Plt Count Lymph % (Auto) Lymph # (Auto) Seg Neutrophils % Seg Neuts % (Manual) Lymphocytes % (Manual) Eosinophils % (Manual) Nucleated RBC % Seg Neutrophils # Seg Neutrophils # Man Lymphocytes # (Manual) Eosinophils # (Manual) PT INR D-Dimer Heparin Anti-Xa Level ABG pH POC ABG pCO2 POC ABG pO2 ABG pO2 ABG HCO3 ABG O2 Saturation ABG Base Excess ABG Hemoglobin ABG Oxyhemoglobin ABG Sodium ABG Potassium ABG Chloride ABG Glucose Oxyhemoglobin Carboxyhemoglobin Sodium Potassium Chloride Carbon Dioxide BUN Creatinine Glucose POC Glucose 279 H 256 H Lactic Acid Calcium Ferritin AST ALT Lactate Dehydrogenase C-Reactive Protein Total Protein Albumin Triglycerides 717 H Arterial Blood Glucose Arterial Blood Ionized Calcium Urine Creatinine Urine Total Protein Vancomycin Trough Coronavirus (PCR) SARS-CoV-2 IgG Ab 08/02/20 08/03/20 08/03/20 23:23 01:25 04:49 WBC 13.2 H RBC 2.83 L Hgb 8.4 L Hct 26.3 L MCH MCHC RDW 16.4 H Plt Count Lymph % (Auto) Lymph # (Auto) Seg Neutrophils % Seg Neuts % (Manual) Lymphocytes % (Manual) 2.0 L Eosinophils % (Manual) Nucleated RBC % 1.0 H Seg Neutrophils # Seg Neutrophils # Man 7.8 H Lymphocytes # (Manual) 0.3 L Eosinophils # (Manual) PT INR D-Dimer Heparin Anti-Xa Level ABG pH 7.302 L POC ABG pCO2 56.0 H POC ABG pO2 39.6 L ABG pO2 ABG HCO3 ABG O2 Saturation ABG Base Excess ABG Hemoglobin 9.1 L ABG Oxyhemoglobin ABG Sodium ABG Potassium 4.8 H ABG Chloride 108.0 H ABG Glucose 275 H Oxyhemoglobin Carboxyhemoglobin Sodium Potassium Chloride Carbon Dioxide BUN Creatinine Glucose POC Glucose 214 H Lactic Acid Calcium Ferritin AST ALT Lactate Dehydrogenase C-Reactive Protein Total Protein Albumin Triglycerides Arterial Blood Glucose 275 H Arterial Blood Ionized Calcium Urine Creatinine Urine Total Protein Vancomycin Trough Coronavirus (PCR) SARS-CoV-2 IgG Ab 08/03/20 08/03/20 08/03/20 04:49 04:49 05:11 WBC RBC Hgb Hct MCH MCHC RDW Plt Count Lymph % (Auto) Lymph # (Auto) Seg Neutrophils % Seg Neuts % (Manual) Lymphocytes % (Manual) Eosinophils % (Manual) Nucleated RBC % Seg Neutrophils # Seg Neutrophils # Man Lymphocytes # (Manual) Eosinophils # (Manual) PT INR D-Dimer Heparin Anti-Xa Level ABG pH POC ABG pCO2 POC ABG pO2 ABG pO2 ABG HCO3 ABG O2 Saturation ABG Base Excess ABG Hemoglobin ABG Oxyhemoglobin ABG Sodium ABG Potassium ABG Chloride ABG Glucose Oxyhemoglobin Carboxyhemoglobin Sodium Potassium Chloride Carbon Dioxide BUN 39 H Creatinine Glucose 263 H POC Glucose 230 H Lactic Acid Calcium 8.1 L Ferritin AST ALT 242 H Lactate Dehydrogenase C-Reactive Protein Total Protein 5.4 L Albumin 2.2 L Triglycerides 500 H Arterial Blood Glucose Arterial Blood Ionized Calcium Urine Creatinine Urine Total Protein Vancomycin Trough Coronavirus (PCR) SARS-CoV-2 IgG Ab 08/03/20 08/03/20 08/03/20 11:55 17:07 23:25 WBC RBC Hgb Hct MCH MCHC RDW Plt Count Lymph % (Auto) Lymph # (Auto) Seg Neutrophils % Seg Neuts % (Manual) Lymphocytes % (Manual) Eosinophils % (Manual) Nucleated RBC % Seg Neutrophils # Seg Neutrophils # Man Lymphocytes # (Manual) Eosinophils # (Manual) PT INR D-Dimer Heparin Anti-Xa Level ABG pH POC ABG pCO2 POC ABG pO2 ABG pO2 ABG HCO3 ABG O2 Saturation ABG Base Excess ABG Hemoglobin ABG Oxyhemoglobin ABG Sodium ABG Potassium ABG Chloride ABG Glucose Oxyhemoglobin Carboxyhemoglobin Sodium Potassium Chloride Carbon Dioxide BUN Creatinine Glucose POC Glucose 238 H 205 H 211 H Lactic Acid Calcium Ferritin AST ALT Lactate Dehydrogenase C-Reactive Protein Total Protein Albumin Triglycerides Arterial Blood Glucose Arterial Blood Ionized Calcium Urine Creatinine Urine Total Protein Vancomycin Trough Coronavirus (PCR) SARS-CoV-2 IgG Ab 08/04/20 08/04/20 08/04/20 03:16 05:31 12:07 WBC RBC Hgb Hct MCH MCHC RDW Plt Count Lymph % (Auto) Lymph # (Auto) Seg Neutrophils % Seg Neuts % (Manual) Lymphocytes % (Manual) Eosinophils % (Manual) Nucleated RBC % Seg Neutrophils # Seg Neutrophils # Man Lymphocytes # (Manual) Eosinophils # (Manual) PT INR D-Dimer Heparin Anti-Xa Level ABG pH 7.154 L POC ABG pCO2 80.7 H POC ABG pO2 ABG pO2 ABG HCO3 ABG O2 Saturation ABG Base Excess ABG Hemoglobin 8.5 L ABG Oxyhemoglobin ABG Sodium ABG Potassium 5.1 H ABG Chloride 109.0 H ABG Glucose 226 H Oxyhemoglobin Carboxyhemoglobin Sodium Potassium Chloride Carbon Dioxide BUN Creatinine Glucose POC Glucose 201 H 213 H Lactic Acid Calcium Ferritin AST ALT Lactate Dehydrogenase C-Reactive Protein Total Protein Albumin Triglycerides Arterial Blood Glucose 226 H Arterial Blood Ionized Calcium Urine Creatinine Urine Total Protein Vancomycin Trough Coronavirus (PCR) SARS-CoV-2 IgG Ab 08/04/20 08/04/20 08/04/20 17:39 23:17 Unknown WBC RBC 2.38 L Hgb 7.1 L Hct 22.4 L MCH MCHC RDW 16.5 H Plt Count Lymph % (Auto) Lymph # (Auto) Seg Neutrophils % Seg Neuts % (Manual) Lymphocytes % (Manual) 1.0 L Eosinophils % (Manual) Nucleated RBC % Seg Neutrophils # Seg Neutrophils # Man Lymphocytes # (Manual) 0.1 L Eosinophils # (Manual) PT INR D-Dimer Heparin Anti-Xa Level ABG pH POC ABG pCO2 POC ABG pO2 ABG pO2 ABG HCO3 ABG O2 Saturation ABG Base Excess ABG Hemoglobin ABG Oxyhemoglobin ABG Sodium ABG Potassium ABG Chloride ABG Glucose Oxyhemoglobin Carboxyhemoglobin Sodium Potassium Chloride Carbon Dioxide BUN Creatinine Glucose POC Glucose 155 H 107 H Lactic Acid Calcium Ferritin AST ALT Lactate Dehydrogenase C-Reactive Protein Total Protein Albumin Triglycerides Arterial Blood Glucose Arterial Blood Ionized Calcium Urine Creatinine Urine Total Protein Vancomycin Trough Coronavirus (PCR) SARS-CoV-2 IgG Ab 08/04/20 08/05/20 08/05/20 Unknown 05:14 05:50 WBC RBC Hgb Hct MCH MCHC RDW Plt Count Lymph % (Auto) Lymph # (Auto) Seg Neutrophils % Seg Neuts % (Manual) Lymphocytes % (Manual) Eosinophils % (Manual) Nucleated RBC % Seg Neutrophils # Seg Neutrophils # Man Lymphocytes # (Manual) Eosinophils # (Manual) PT INR D-Dimer Heparin Anti-Xa Level ABG pH POC ABG pCO2 51.7 H POC ABG pO2 63.3 L ABG pO2 ABG HCO3 ABG O2 Saturation ABG Base Excess ABG Hemoglobin 9.9 L ABG Oxyhemoglobin ABG Sodium 146.9 H ABG Potassium ABG Chloride 113.0 H ABG Glucose 112 H Oxyhemoglobin Carboxyhemoglobin Sodium Potassium Chloride 113.1 H Carbon Dioxide BUN 27 H Creatinine 0.5 L Glucose 190 H POC Glucose 126 H Lactic Acid Calcium 7.5 L Ferritin AST ALT 134 H Lactate Dehydrogenase C-Reactive Protein Total Protein 4.7 L Albumin 2.2 L Triglycerides Arterial Blood Glucose 112 H Arterial Blood Ionized Calcium Urine Creatinine Urine Total Protein Vancomycin Trough Coronavirus (PCR) SARS-CoV-2 IgG Ab 08/05/20 08/05/20 08/05/20 08:30 08:30 11:19 WBC 16.5 H RBC 2.79 L Hgb 8.3 L Hct 26.1 L MCH MCHC RDW 16.7 H Plt Count Lymph % (Auto) Lymph # (Auto) Seg Neutrophils % Seg Neuts % (Manual) Lymphocytes % (Manual) 6.0 L Eosinophils % (Manual) Nucleated RBC % Seg Neutrophils # Seg Neutrophils # Man 10.1 H Lymphocytes # (Manual) 1.0 L Eosinophils # (Manual) PT INR D-Dimer Heparin Anti-Xa Level ABG pH POC ABG pCO2 POC ABG pO2 ABG pO2 ABG HCO3 ABG O2 Saturation ABG Base Excess ABG Hemoglobin ABG Oxyhemoglobin ABG Sodium ABG Potassium ABG Chloride ABG Glucose Oxyhemoglobin Carboxyhemoglobin Sodium 149 H Potassium Chloride 112.9 H Carbon Dioxide 32 H D BUN 25 H Creatinine Glucose 184 H POC Glucose 185 H Lactic Acid Calcium Ferritin AST ALT 115 H Lactate Dehydrogenase C-Reactive Protein Total Protein 5.5 L Albumin 2.3 L Triglycerides Arterial Blood Glucose Arterial Blood Ionized Calcium Urine Creatinine Urine Total Protein Vancomycin Trough Coronavirus (PCR) SARS-CoV-2 IgG Ab 08/05/20 08/05/20 08/05/20 13:35 13:35 13:35 WBC RBC Hgb 7.7 L Hct 24.6 L MCH MCHC RDW Plt Count Lymph % (Auto) Lymph # (Auto) Seg Neutrophils % Seg Neuts % (Manual) Lymphocytes % (Manual) Eosinophils % (Manual) Nucleated RBC % Seg Neutrophils # Seg Neutrophils # Man Lymphocytes # (Manual) Eosinophils # (Manual) PT 15.4 H INR 1.22 H D-Dimer 4748.32 H Heparin Anti-Xa Level ABG pH POC ABG pCO2 POC ABG pO2 ABG pO2 ABG HCO3 ABG O2 Saturation ABG Base Excess ABG Hemoglobin ABG Oxyhemoglobin ABG Sodium ABG Potassium ABG Chloride ABG Glucose Oxyhemoglobin Carboxyhemoglobin Sodium Potassium Chloride Carbon Dioxide BUN Creatinine Glucose POC Glucose Lactic Acid Calcium Ferritin AST ALT Lactate Dehydrogenase C-Reactive Protein 26.40 H Total Protein Albumin Triglycerides 337 H Arterial Blood Glucose Arterial Blood Ionized Calcium Urine Creatinine Urine Total Protein Vancomycin Trough Coronavirus (PCR) SARS-CoV-2 IgG Ab 08/05/20 08/05/20 08/05/20 16:56 20:07 23:29 WBC RBC Hgb Hct MCH MCHC RDW Plt Count Lymph % (Auto) Lymph # (Auto) Seg Neutrophils % Seg Neuts % (Manual) Lymphocytes % (Manual) Eosinophils % (Manual) Nucleated RBC % Seg Neutrophils # Seg Neutrophils # Man Lymphocytes # (Manual) Eosinophils # (Manual) PT INR D-Dimer Heparin Anti-Xa Level ABG pH POC ABG pCO2 POC ABG pO2 ABG pO2 ABG HCO3 ABG O2 Saturation ABG Base Excess ABG Hemoglobin ABG Oxyhemoglobin ABG Sodium ABG Potassium ABG Chloride ABG Glucose Oxyhemoglobin Carboxyhemoglobin Sodium Potassium Chloride Carbon Dioxide BUN Creatinine Glucose POC Glucose 120 H 156 H Lactic Acid Calcium Ferritin AST ALT Lactate Dehydrogenase C-Reactive Protein Total Protein Albumin Triglycerides Arterial Blood Glucose Arterial Blood Ionized Calcium Urine Creatinine Urine Total Protein Vancomycin Trough 27.0 H Coronavirus (PCR) SARS-CoV-2 IgG Ab 08/06/20 08/06/20 08/06/20 04:00 04:00 05:32 WBC 12.6 H RBC 2.40 L Hgb 7.2 L Hct 22.4 L MCH MCHC RDW 16.9 H Plt Count Lymph % (Auto) Lymph # (Auto) Seg Neutrophils % Seg Neuts % (Manual) 86.0 H Lymphocytes % (Manual) 5.0 L Eosinophils % (Manual) Nucleated RBC % Seg Neutrophils # Seg Neutrophils # Man 10.8 H Lymphocytes # (Manual) 0.6 L Eosinophils # (Manual) PT INR D-Dimer Heparin Anti-Xa Level ABG pH POC ABG pCO2 POC ABG pO2 ABG pO2 ABG HCO3 ABG O2 Saturation ABG Base Excess ABG Hemoglobin ABG Oxyhemoglobin ABG Sodium ABG Potassium ABG Chloride ABG Glucose Oxyhemoglobin Carboxyhemoglobin Sodium 147 H Potassium Chloride 112.5 H Carbon Dioxide BUN 27 H Creatinine Glucose 193 H POC Glucose 155 H Lactic Acid Calcium 8.3 L Ferritin AST ALT 77 H Lactate Dehydrogenase C-Reactive Protein Total Protein 5.0 L Albumin 2.2 L Triglycerides Arterial Blood Glucose Arterial Blood Ionized Calcium Urine Creatinine Urine Total Protein Vancomycin Trough Coronavirus (PCR) SARS-CoV-2 IgG Ab 08/06/20 08/06/20 08/06/20 09:31 11:55 17:44 WBC RBC Hgb Hct MCH MCHC RDW Plt Count Lymph % (Auto) Lymph # (Auto) Seg Neutrophils % Seg Neuts % (Manual) Lymphocytes % (Manual) Eosinophils % (Manual) Nucleated RBC % Seg Neutrophils # Seg Neutrophils # Man Lymphocytes # (Manual) Eosinophils # (Manual) PT INR D-Dimer Heparin Anti-Xa Level ABG pH POC ABG pCO2 POC ABG pO2 ABG pO2 ABG HCO3 ABG O2 Saturation ABG Base Excess ABG Hemoglobin ABG Oxyhemoglobin ABG Sodium ABG Potassium ABG Chloride ABG Glucose Oxyhemoglobin Carboxyhemoglobin Sodium Potassium Chloride Carbon Dioxide BUN Creatinine Glucose POC Glucose 140 H 151 H 132 H Lactic Acid Calcium Ferritin AST ALT Lactate Dehydrogenase C-Reactive Protein Total Protein Albumin Triglycerides Arterial Blood Glucose Arterial Blood Ionized Calcium Urine Creatinine Urine Total Protein Vancomycin Trough Coronavirus (PCR) SARS-CoV-2 IgG Ab 08/06/20 08/06/20 08/06/20 21:11 23:21 Unknown WBC RBC Hgb Hct MCH MCHC RDW Plt Count Lymph % (Auto) Lymph # (Auto) Seg Neutrophils % Seg Neuts % (Manual) Lymphocytes % (Manual) Eosinophils % (Manual) Nucleated RBC % Seg Neutrophils # Seg Neutrophils # Man Lymphocytes # (Manual) Eosinophils # (Manual) PT INR D-Dimer Heparin Anti-Xa Level ABG pH POC ABG pCO2 49.3 H 50.5 H POC ABG pO2 62.1 L 70.5 L ABG pO2 ABG HCO3 ABG O2 Saturation ABG Base Excess ABG Hemoglobin 8.6 L 8.3 L ABG Oxyhemoglobin 90.2 L ABG Sodium ABG Potassium ABG Chloride 111.0 H 113.0 H ABG Glucose 171 H 204 H Oxyhemoglobin Carboxyhemoglobin 1.7 H Sodium Potassium Chloride Carbon Dioxide BUN Creatinine Glucose POC Glucose 160 H Lactic Acid Calcium Ferritin AST ALT Lactate Dehydrogenase C-Reactive Protein Total Protein Albumin Triglycerides Arterial Blood Glucose 171 H 204 H Arterial Blood Ionized Calcium Urine Creatinine Urine Total Protein Vancomycin Trough Coronavirus (PCR) SARS-CoV-2 IgG Ab 08/07/20 08/07/20 08/07/20 02:06 02:06 04:00 WBC 18.0 H RBC 2.91 L Hgb 8.5 L Hct 27.2 L MCH MCHC RDW 17.7 H Plt Count Lymph % (Auto) 5.3 L Lymph # (Auto) 1.0 L Seg Neutrophils % Seg Neuts % (Manual) Lymphocytes % (Manual) Eosinophils % (Manual) Nucleated RBC % Seg Neutrophils # 16.6 H Seg Neutrophils # Man Lymphocytes # (Manual) Eosinophils # (Manual) PT INR D-Dimer Heparin Anti-Xa Level ABG pH POC ABG pCO2 POC ABG pO2 ABG pO2 111.4 H ABG HCO3 27.6 H ABG O2 Saturation ABG Base Excess ABG Hemoglobin 8.5 L ABG Oxyhemoglobin ABG Sodium ABG Potassium ABG Chloride ABG Glucose Oxyhemoglobin Carboxyhemoglobin Sodium 146 H Potassium Chloride 110.9 H Carbon Dioxide BUN 27 H Creatinine 0.5 L Glucose 187 H POC Glucose Lactic Acid Calcium Ferritin AST ALT Lactate Dehydrogenase C-Reactive Protein Total Protein Albumin Triglycerides Arterial Blood Glucose Arterial Blood Ionized Calcium Urine Creatinine Urine Total Protein Vancomycin Trough Coronavirus (PCR) SARS-CoV-2 IgG Ab 08/07/20 08/07/20 08/07/20 05:28 11:15 12:09 WBC RBC Hgb Hct MCH MCHC RDW Plt Count Lymph % (Auto) Lymph # (Auto) Seg Neutrophils % Seg Neuts % (Manual) Lymphocytes % (Manual) Eosinophils % (Manual) Nucleated RBC % Seg Neutrophils # Seg Neutrophils # Man Lymphocytes # (Manual) Eosinophils # (Manual) PT INR D-Dimer Heparin Anti-Xa Level 0.15 L ABG pH POC ABG pCO2 POC ABG pO2 ABG pO2 ABG HCO3 ABG O2 Saturation ABG Base Excess ABG Hemoglobin ABG Oxyhemoglobin ABG Sodium ABG Potassium ABG Chloride ABG Glucose Oxyhemoglobin Carboxyhemoglobin Sodium Potassium Chloride Carbon Dioxide BUN Creatinine Glucose POC Glucose 161 H 191 H Lactic Acid Calcium Ferritin AST ALT Lactate Dehydrogenase C-Reactive Protein Total Protein Albumin Triglycerides Arterial Blood Glucose Arterial Blood Ionized Calcium Urine Creatinine Urine Total Protein Vancomycin Trough Coronavirus (PCR) SARS-CoV-2 IgG Ab 08/07/20 08/07/20 08/07/20 18:25 22:31 23:39 WBC RBC Hgb Hct MCH MCHC RDW Plt Count Lymph % (Auto) Lymph # (Auto) Seg Neutrophils % Seg Neuts % (Manual) Lymphocytes % (Manual) Eosinophils % (Manual) Nucleated RBC % Seg Neutrophils # Seg Neutrophils # Man Lymphocytes # (Manual) Eosinophils # (Manual) PT INR D-Dimer Heparin Anti-Xa Level 0.25 L ABG pH POC ABG pCO2 POC ABG pO2 ABG pO2 ABG HCO3 ABG O2 Saturation ABG Base Excess ABG Hemoglobin ABG Oxyhemoglobin ABG Sodium ABG Potassium ABG Chloride ABG Glucose Oxyhemoglobin Carboxyhemoglobin Sodium Potassium Chloride Carbon Dioxide BUN Creatinine Glucose POC Glucose 195 H 220 H Lactic Acid Calcium Ferritin AST ALT Lactate Dehydrogenase C-Reactive Protein Total Protein Albumin Triglycerides Arterial Blood Glucose Arterial Blood Ionized Calcium Urine Creatinine Urine Total Protein Vancomycin Trough Coronavirus (PCR) SARS-CoV-2 IgG Ab 08/08/20 08/08/20 08/08/20 05:54 11:56 18:22 WBC RBC Hgb Hct MCH MCHC RDW Plt Count Lymph % (Auto) Lymph # (Auto) Seg Neutrophils % Seg Neuts % (Manual) Lymphocytes % (Manual) Eosinophils % (Manual) Nucleated RBC % Seg Neutrophils # Seg Neutrophils # Man Lymphocytes # (Manual) Eosinophils # (Manual) PT INR D-Dimer Heparin Anti-Xa Level ABG pH POC ABG pCO2 POC ABG pO2 ABG pO2 ABG HCO3 ABG O2 Saturation ABG Base Excess ABG Hemoglobin ABG Oxyhemoglobin ABG Sodium ABG Potassium ABG Chloride ABG Glucose Oxyhemoglobin Carboxyhemoglobin Sodium Potassium Chloride Carbon Dioxide BUN Creatinine Glucose POC Glucose 232 H 155 H 134 H Lactic Acid Calcium Ferritin AST ALT Lactate Dehydrogenase C-Reactive Protein Total Protein Albumin Triglycerides Arterial Blood Glucose Arterial Blood Ionized Calcium Urine Creatinine Urine Total Protein Vancomycin Trough Coronavirus (PCR) SARS-CoV-2 IgG Ab 08/09/20 08/09/20 08/09/20 05:38 05:38 11:55 WBC RBC Hgb Hct MCH MCHC RDW Plt Count Lymph % (Auto) Lymph # (Auto) Seg Neutrophils % Seg Neuts % (Manual) Lymphocytes % (Manual) Eosinophils % (Manual) Nucleated RBC % Seg Neutrophils # Seg Neutrophils # Man Lymphocytes # (Manual) Eosinophils # (Manual) PT INR D-Dimer Heparin Anti-Xa Level ABG pH POC ABG pCO2 52.0 H POC ABG pO2 54.1 L ABG pO2 ABG HCO3 ABG O2 Saturation ABG Base Excess ABG Hemoglobin 10.2 L ABG Oxyhemoglobin ABG Sodium ABG Potassium ABG Chloride 108.0 H ABG Glucose 124 H Oxyhemoglobin Carboxyhemoglobin Sodium Potassium Chloride 108.2 H Carbon Dioxide BUN 22 H Creatinine Glucose POC Glucose 130 H Lactic Acid Calcium Ferritin AST ALT Lactate Dehydrogenase C-Reactive Protein Total Protein Albumin Triglycerides Arterial Blood Glucose 124 H Arterial Blood Ionized Calcium Urine Creatinine Urine Total Protein Vancomycin Trough Coronavirus (PCR) SARS-CoV-2 IgG Ab 08/09/20 08/09/20 08/09/20 11:55 18:12 23:09 WBC RBC Hgb 8.9 L Hct 28.4 L MCH MCHC RDW Plt Count Lymph % (Auto) Lymph # (Auto) Seg Neutrophils % Seg Neuts % (Manual) Lymphocytes % (Manual) Eosinophils % (Manual) Nucleated RBC % Seg Neutrophils # Seg Neutrophils # Man Lymphocytes # (Manual) Eosinophils # (Manual) PT INR D-Dimer Heparin Anti-Xa Level ABG pH POC ABG pCO2 POC ABG pO2 ABG pO2 ABG HCO3 ABG O2 Saturation ABG Base Excess ABG Hemoglobin ABG Oxyhemoglobin ABG Sodium ABG Potassium ABG Chloride ABG Glucose Oxyhemoglobin Carboxyhemoglobin Sodium Potassium Chloride Carbon Dioxide BUN Creatinine Glucose POC Glucose 135 H 132 H Lactic Acid Calcium Ferritin AST ALT Lactate Dehydrogenase C-Reactive Protein Total Protein Albumin Triglycerides Arterial Blood Glucose Arterial Blood Ionized Calcium Urine Creatinine Urine Total Protein Vancomycin Trough Coronavirus (PCR) SARS-CoV-2 IgG Ab 08/10/20 08/10/20 08/10/20 05:00 05:00 05:38 WBC 14.6 H RBC 2.63 L Hgb 7.8 L Hct 24.6 L MCH MCHC RDW 17.9 H Plt Count Lymph % (Auto) Lymph # (Auto) Seg Neutrophils % Seg Neuts % (Manual) Lymphocytes % (Manual) Eosinophils % (Manual) Nucleated RBC % Seg Neutrophils # Seg Neutrophils # Man Lymphocytes # (Manual) Eosinophils # (Manual) PT INR D-Dimer Heparin Anti-Xa Level ABG pH POC ABG pCO2 POC ABG pO2 ABG pO2 ABG HCO3 ABG O2 Saturation ABG Base Excess ABG Hemoglobin ABG Oxyhemoglobin ABG Sodium ABG Potassium ABG Chloride ABG Glucose Oxyhemoglobin Carboxyhemoglobin Sodium Potassium Chloride 108.6 H Carbon Dioxide BUN 27 H Creatinine Glucose 133 H POC Glucose 115 H Lactic Acid Calcium Ferritin AST ALT Lactate Dehydrogenase C-Reactive Protein Total Protein 5.3 L Albumin 2.3 L Triglycerides 185 H Arterial Blood Glucose Arterial Blood Ionized Calcium Urine Creatinine Urine Total Protein Vancomycin Trough Coronavirus (PCR) SARS-CoV-2 IgG Ab 08/10/20 05:45 WBC RBC Hgb Hct MCH MCHC RDW Plt Count Lymph % (Auto) Lymph # (Auto) Seg Neutrophils % Seg Neuts % (Manual) Lymphocytes % (Manual) Eosinophils % (Manual) Nucleated RBC % Seg Neutrophils # Seg Neutrophils # Man Lymphocytes # (Manual) Eosinophils # (Manual) PT INR D-Dimer Heparin Anti-Xa Level ABG pH POC ABG pCO2 51.3 H POC ABG pO2 ABG pO2 ABG HCO3 ABG O2 Saturation ABG Base Excess ABG Hemoglobin 7.9 L ABG Oxyhemoglobin ABG Sodium ABG Potassium ABG Chloride 109.0 H ABG Glucose 141 H Oxyhemoglobin Carboxyhemoglobin Sodium Potassium Chloride Carbon Dioxide BUN Creatinine Glucose POC Glucose Lactic Acid Calcium Ferritin AST ALT Lactate Dehydrogenase C-Reactive Protein Total Protein Albumin Triglycerides Arterial Blood Glucose 141 H Arterial Blood Ionized Calcium 4.5 L Urine Creatinine Urine Total Protein Vancomycin Trough Coronavirus (PCR) SARS-CoV-2 IgG Ab Chest x-ray: image reviewed (persistent SQ emphysema; no PTX; enlarged ? ETT balloon in mid trachea) Allied health notes reviewed: nursing
[2020-08-10] MEDS ORDERED: METOPROLOL TARTRATE 5 MG/5 ML INJ IV ONE ×3 (17:55→22:30)
[2020-08-10] MEDS ORDERED: SODIUM CHLORIDE 0.9% 1000 ML 1,000 ML ONE ×2 (19:05→19:34)
[2020-08-10] MEDS: VASOPRESSIN 20 UNIT in SODIUM CHLORIDE 0.9% 100 ML IV SCH (19:30)
[2020-08-10] MEDS ORDERED: SODIUM CHLORIDE 0.9% 500 ML 500 ML IV SCH (20:00)
[2020-08-10 20:05] LABS: ABG Base Excess -2.3 mmol/L (-2.0-3.0); ABG HCO3 27.6 mmol/L (20.0-26.0); ABG Methemoglobin 0.8 % (0.0-1.5); ABG Oxygen Saturation 77.7 % (95.0-99.0); ABG PCO2 80.4 mm Hg; ABG PO2 50.5 mm Hg (80.0-90.0)
--- NOTE | 2020-08-10 20:05 | XRay Report ---
CHEST 1 VIEW 08/10/2020 7:33 PM INDICATION / CLINICAL INFORMATION: vent asynchrony, sub cue air, tachycardia. COMPARISON: 8:27 AM FINDINGS: SUPPORT DEVICES: Endotracheal tube, esophagogastric tube, bilateral chest tubes, and left subclavian line are unchanged. Endotracheal tube balloon appears over distended but unchanged. HEART / MEDIASTINUM: Stable. LUNGS / PLEURA: Bilateral pulmonary opacities are unchanged. Slight decrease in subcutaneous soft tis mark emphysema. ADDITIONAL FINDINGS: Moderate gaseous distention of the stomach despite the presence of esophagogastr ic tube. IMPRESSION: 1. Slight improvement in subcutaneous soft tissue emphysema. 2. Moderate gaseous distention of the stomach despite esophagogastric tube. 3. Endotracheal balloon appears over dilated. COMMUNICATION: Time of Communication ([employer]AME TENDER/CDT): 7:00 PM Licensed Practitioner Receiving Report: Nurse Grigsby on critical care unit Signer Name: Yaneth Flores MD Signed: 08/10/2020 8:00 PM Workstation Name: [id number]
[2020-08-10 20:09] LABS: ABG PH 7.152 pH Units (7.350-7.450)
[2020-08-11] MEDS: PROPOFOL 500 MG/50 ML VIAL IV SCH ×7 (00:10→20:37)
[2020-08-11] MEDS: fentaNYL DRIP Premix 2,000 MCG/100 ML BAG IV SCH ×4 (00:12→22:39)
[2020-08-11] MEDS: INSULIN REGULAR, HUMAN 100 UNIT/ML 3ML VIAL SUB-Q SCH ×4 (00:14→17:52)
[2020-08-11] MEDS: NORepinephrine/NS 4 MG-250 ML 4 MG/250 ML BAG IV SCH ×3 (01:05→18:16)
--- NOTE | 2020-08-11 03:40 | XRay Report ---
CHEST 1 VIEW, 08/11/2020 2:19 AM CLINICAL INFORMATION/INDICATION: Respiratory failure COMPARISON: Chest radiograph, 08/10/2020 at 7:33 PM FINDINGS: SUPPORT DEVICES: Support tubes and lines project in similar position. HEART: The cardiac silhouette is normal in size. LUNGS/PLEURA: Bilateral pulmonary opacities do not appear significantly changed when allowing for dif ferences in technique. No pneumothorax is visualized. ADDITIONAL FINDINGS: Gaseous distention of the stomach is slightly decreased. Subcutaneous emphysema overlying the chest is again noted. IMPRESSION: 1. Stable bilateral pulmonary opacities. Signer Name: Charlotte Mccarthy MD Signed: 08/11/2020 3:35 AM Workstation Name: [id number]
[2020-08-11 04:10] LABS: ABG HCO3 27.3 mmol/L (20.0-26.0); ABG Methemoglobin 0.7 % (0.0-1.5); ABG Oxygen Saturation 83.9 % (95.0-99.0); ABG PCO2 73.3 mm Hg; ABG PO2 59.2 mm Hg (80.0-90.0)
[2020-08-11 04:12] LABS: ABG PH 7.189 pH Units (7.350-7.450)
[2020-08-11] MEDS: methylPREDNISolone Sod Succinate 40 MG/1 ML INJ IV SCH ×2 (07:23→13:19)
[2020-08-11] MEDS: METOCLOPRAMIDE 10 MG/2 ML INJ IV SCH ×6 (07:27→22:00)
[2020-08-11] MEDS: GABAPENTIN 300 MG CAP PO SCH ×2 (07:28→13:19)
[2020-08-11] MEDS: chlordiazePOXIDE 25 MG CAP PO SCH ×3 (07:28→20:44)
[2020-08-11 08:07] LABS: Hematocrit 26.9 % (30.3-42.9); Hemoglobin 8.2 gm/dl (10.1-14.3)
[2020-08-11 08:28] LABS: Alanine Aminotransferase 34 units/L (7-56); Albumin 2.4 g/dL (3.9-5); BUN/Creatinine Ratio 30; Blood Urea Nitrogen 30 mg/dL (7-17); Calcium 8.7 mg/dL (8.4-10.2); Hemolysis Index 7
[2020-08-11] MEDS: BUDESONIDE 0.5 MG/2 ML NEBU IH SCH ×2 (08:41→20:00)
[2020-08-11] MEDS: ARFORMOTEROL 15 MCG/2 ML NEBU IH SCH ×2 (08:41→20:00)
[2020-08-11] MEDS: HEPARIN/ 0.45% NACL DRIP 25,000 UNIT/500 ML BAG IV SCH (09:20)
[2020-08-11] MEDS: MIDAZOLAM 100 MG in SODIUM CHLORIDE 0.9% 80 ML IV SCH (09:21)
[2020-08-11] MEDS: ZINC SULFATE 220 MG CAP PO SCH (09:24)
[2020-08-11] MEDS: ASCORBIC ACID 500 MG TAB PO SCH (09:24)
[2020-08-11] MEDS: ASPIRIN 81 MG TAB CHEW PO SCH (09:24)
[2020-08-11] MEDS: LANSOPRAZOLE 30 MG SOLUTAB FEEDTUBE SCH (09:25)
[2020-08-11] MEDS: QUEtiapine 200 MG TAB PO SCH (09:26)
[2020-08-11] MEDS: HYDROXYCHLOROQUINE 200 MG TAB PO SCH (09:26)
[2020-08-11] MEDS: QUEtiapine 100 MG TAB PO SCH ×2 (09:26→22:05)
[2020-08-11] MEDS: ONDANSETRON 4 MG/2 ML INJ IV PRN (09:26)
[2020-08-11] MEDS: INSULIN GLARGINE 100 UNITS/ML SUB-Q SCH (09:26)
[2020-08-11] MEDS: DOCUSATE SODIUM 100 MG/10 ML ORAL LIQD PO SCH (10:05)
[2020-08-11] MEDS: POLYETHYLENE GLYCOL 3350 17 GM POWDER PO SCH (10:05)
[2020-08-11] MEDS: VENLAFAXINE 37.5 MG TAB PO SCH (11:23)
--- NOTE | 2020-08-11 13:19 | Progress Note ---
Assessment and Plan Acute hypoxemic respiratory failure, now on MVS Bilateral pneumonia, left greater than right lungs. COVID-19 infection. History of congestive heart failure. History of lupus erythematosus. Leukocytosis. Tobacco use disorder. Acute asthma exacerbation. History of hypertension. Obesity Subcutaneous Emphysema Bilateral Pneumothoraces (there is a continuous leak from oropharynx that does not resolve even with ETT balloon insufflation but there is no appreciable balloon leak / deflation of inflation bulb) - keep NGT to LIS X 24 more hours - FiO2 increased to 100% - wean Vasopressors for target MAP > 65 mmHg - continue full dose anticoagulation with IV Heparin - continue chest tubes to continuous suction (surgery assistance appreciated) - continue sedation and target RASS -2 to -3 acutely - repeat ABG in am - continue and de-escalate AB's per ID recommendations - prognosis grave especially neurologic-rai - continue care as below otherwise; - continue systemic steroids - continue to wean supplemental oxygen for target O2 sat's > 92% - continue low dose SSI - continue Seroquel 300 mg p.o. bid - continue airborne and contact isolation - continue Zinc & Vit C supplementaion - complete Remdesivir - de-escalate AB's per ID rec's - continue systemic steroids for Asthma / severe COVID infection - continue Daily SAT and SBT assessment as tolerated - VAP bundle addressed - continue lung protective strategies - continue bronchodilators with pulmonary hygiene per RT - wean per pulmonary driven protocols otherwise - accuchecks with glycemic control per SSI (While critically ill target blood glucose of 140-180 mg/dL; avoid hypoglycemia) - sedation prn for target RASS -1 to -2 - avoid nephrotoxins, renally dose all medications - continue to avoid benzodiazepine's, reduce the possibility of delirium - prn analgesia per CPOT score - Maintenance of sleep-wake cycle, avoid delirium - continue enteral nutritional support at goal rate as tolerated - G.I. & VTE prophylaxis - PT/OT/ROM exercises - continue mobility protocols for pressure ulcer prophylaxis - Monitor hemodynamics closely - continue other care per attending / other consultants - discharge planning ongoing concurrently .... Re-evaluate in am & prn CONDITION: CRITICAL PROGNOSIS: GUARDED CODE STATUS: FULL CODE The high probability of a clinically significant, sudden or life-threatening deterioration of the [respiratory, cardiovascular & neurologic] system(s) required my full and direct attention, intervention and personal management. The aggregate critical care time was [34] minutes without overlap. Time includes spent on; [x] Data Review and interpretation [x] Patient assessment and monitoring of vital signs [x] Documentation [x] Medication orders and management Subjective Date of service: 08/11/20 Principal diagnosis: Ac hypoxemic resp failure; PNA; COVID-19 infxn; SLE; Asthma exacerbation Interval history: Patient is seen today for: Acute hypoxemic respiratory failure; Bilateral pneumonia; COVID-19 infection; H/O CHF; SLE; Acute asthma exacerbation. HTN; Obesity Seen and examined at bedside; 24hour events reviewed; nursing and respiratory care staff consulted; no adverse overnight events reported to me; resting peacefully in bed; remains on MVS; busy night; decompensated post cleaning with SVT and hemodynamic instability; AMS is persistent; some ETT leak noted but maintaining decent minute volumes Objective Vital Signs - 12hr 08/11/20 08/11/20 08/11/20 01:30 01:46 02:00 Temperature Pulse Rate 108 H 105 H 106 H Pulse Rate [ Bilateral Throughout] Respiratory 28 H 28 H 28 H Rate Respiratory Rate [Bilateral Throughout] Blood Pressure 124/82 131/86 141/83 O2 Sat by Pulse 82 L 82 L 78 L Oximetry 08/11/20 08/11/20 08/11/20 02:16 02:30 02:46 Temperature Pulse Rate 104 H 101 H 100 H Pulse Rate [ Bilateral Throughout] Respiratory 26 H 24 25 H Rate Respiratory Rate [Bilateral Throughout] Blood Pressure 142/86 158/92 158/95 O2 Sat by Pulse 93 93 93 Oximetry 08/11/20 08/11/20 08/11/20 03:00 03:16 03:30 Temperature Pulse Rate 99 H 99 H 101 H Pulse Rate [ Bilateral Throughout] Respiratory 26 H 29 H 30 H Rate Respiratory Rate [Bilateral Throughout] Blood Pressure 157/92 161/99 146/93 O2 Sat by Pulse 92 92 92 Oximetry 08/11/20 08/11/20 08/11/20 03:46 04:00 04:11 Temperature 96.6 F L Pulse Rate 102 H 107 H 108 H Pulse Rate [ Bilateral Throughout] Respiratory 28 H 30 H Rate Respiratory Rate [Bilateral Throughout] Blood Pressure 152/96 151/87 151/87 O2 Sat by Pulse 91 92 91 Oximetry 08/11/20 08/11/20 08/11/20 04:16 04:30 04:46 Temperature Pulse Rate 109 H 109 H 112 H Pulse Rate [ Bilateral Throughout] Respiratory 27 H 30 H 30 H Rate Respiratory Rate [Bilateral Throughout] Blood Pressure 144/81 143/84 142/79 O2 Sat by Pulse 90 89 87 Oximetry 08/11/20 08/11/20 08/11/20 05:00 05:16 05:30 Temperature Pulse Rate 114 H 112 H 110 H Pulse Rate [ Bilateral Throughout] Respiratory 26 H 24 24 Rate Respiratory Rate [Bilateral Throughout] Blood Pressure 150/79 141/78 138/80 O2 Sat by Pulse 88 90 90 Oximetry 08/11/20 08/11/20 08/11/20 05:46 06:00 06:16 Temperature Pulse Rate 111 H 112 H 110 H Pulse Rate [ Bilateral Throughout] Respiratory 22 27 H 24 Rate Respiratory Rate [Bilateral Throughout] Blood Pressure 140/77 146/78 138/79 O2 Sat by Pulse 90 90 90 Oximetry 08/11/20 08/11/20 08/11/20 06:30 06:46 07:00 Temperature 97.3 F L Pulse Rate 108 H 109 H 108 H Pulse Rate [ Bilateral Throughout] Respiratory 27 H 24 26 H Rate Respiratory Rate [Bilateral Throughout] Blood Pressure 138/82 145/81 145/81 O2 Sat by Pulse 89 88 88 Oximetry 08/11/20 08/11/20 08/11/20 07:16 07:30 07:46 Temperature Pulse Rate 111 H 111 H 109 H Pulse Rate [ Bilateral Throughout] Respiratory 26 H 24 22 Rate Respiratory Rate [Bilateral Throughout] Blood Pressure 145/81 144/83 139/85 O2 Sat by Pulse 89 87 86 Oximetry 08/11/20 08/11/20 08/11/20 08:00 08:16 08:30 Temperature Pulse Rate 109 H 109 H 108 H Pulse Rate [ Bilateral Throughout] Respiratory 25 H 26 H 24 Rate Respiratory Rate [Bilateral Throughout] Blood Pressure 144/87 154/90 164/90 O2 Sat by Pulse 86 85 89 Oximetry 08/11/20 08/11/20 08/11/20 08:41 08:46 09:00 Temperature Pulse Rate 119 H 114 H 116 H Pulse Rate [ 117 H Bilateral Throughout] Respiratory 26 H 22 Rate Respiratory 31 H Rate [Bilateral Throughout] Blood Pressure 126/65 138/82 138/82 O2 Sat by Pulse 92 84 86 Oximetry 08/11/20 08/11/2020 09:16 09:30 09:46 Temperature Pulse Rate 120 H 118 H 119 H Pulse Rate [ Bilateral Throughout] Respiratory 18 18 16 Rate Respiratory Rate [Bilateral Throughout] Blood Pressure 126/65 126/65 115/63 O2 Sat by Pulse 92 91 91 Oximetry 08/11/20 08/11/20 08/11/20 10:00 10:16 10:30 Temperature Pulse Rate 118 H 118 H 120 H Pulse Rate [ Bilateral Throughout] Respiratory 17 25 H 19 Rate Respiratory Rate [Bilateral Throughout] Blood Pressure 115/63 111/64 111/64 O2 Sat by Pulse 93 93 92 Oximetry 08/11/20 08/11/20 08/11/20 10:46 11:00 11:16 Temperature Pulse Rate 117 H 118 H 121 H Pulse Rate [ Bilateral Throughout] Respiratory 26 H 23 26 H Rate Respiratory Rate [Bilateral Throughout] Blood Pressure 101/65 101/65 96/60 O2 Sat by Pulse 91 91 90 Oximetry 08/11/20 08/11/20 08/11/20 11:30 11:46 11:57 Temperature Pulse Rate 114 H 115 H 115 H Pulse Rate [ Bilateral Throughout] Respiratory 25 H 18 Rate Respiratory Rate [Bilateral Throughout] Blood Pressure 96/60 105/69 126/65 O2 Sat by Pulse 89 90 92 Oximetry 08/11/20 08/11/20 08/11/20 12:00 12:16 12:30 Temperature 97.9 F Pulse Rate 115 H 112 H 114 H Pulse Rate [ Bilateral Throughout] Respiratory 16 16 20 Rate Respiratory Rate [Bilateral Throughout] Blood Pressure 105/69 116/59 116/59 O2 Sat by Pulse 91 89 90 Oximetry 08/11/20 12:46 Temperature Pulse Rate 113 H Pulse Rate [ Bilateral Throughout] Respiratory 18 Rate Respiratory Rate [Bilateral Throughout] Blood Pressure 105/64 O2 Sat by Pulse 90 Oximetry Constitutional: appears uncomfortable, other (middle aged obese female with mildly increased respiratory effort at rest on MVS) Eyes: non-icteric ENT: oropharynx moist, other (ETT 24cm YANET) Neck: supple, no lymphadenopathy, no JVD Effort: mildly labored Ascultation: Bilateral: diminished breath sounds, rhonchi, other (two R. chest tubes and 1 on left (leaks on right side)) Percussion: Bilateral: not dull Cardiovascular: regular rate and rhythm, other (S1,S2) Gastrointestinal: normoactive bowel sounds, soft, non-tender, non-distended Integumentary: other (+ Sub-Q emphysema to neck and face + upper chest) Extremities: no cyanosis, no edema, pulses normal, no ischemia or petechiae Neurologic: pupils equal and round, other (sedated) Psychiatric: other (unable to assess re: AMS / sedation) CBC and BMP: 08/11/20 06:45 08/11/20 06:45 ABG, PT/INR, D-dimer: ABG ABG pH 7.189 pH Units (7.350-7.450) L* 08/11/20 03:50 POC ABG pCO2 51.3 mmHg (32.0-48.0) H 08/10/20 05:45 ABG pCO2 73.3 mm Hg 08/11/20 03:50 POC ABG pO2 100.6 mmHg (83-108) 08/10/20 05:45 ABG pO2 59.2 mm Hg (80.0-90.0) L 08/11/20 03:50 POC ABG HCO3 27.9 08/10/20 05:45 ABG O2 Saturation 83.9 % (95.0-99.0) L 08/11/20 03:50 PT/INR, D-dimer PT 15.4 Sec. (12.2-14.9) H 08/05/20 13:35 INR 1.22 (0.87-1.13) H 08/05/20 13:35 D-Dimer 4748.32 ng/mlDDU (0-234) H 08/05/20 13:35 Abnormal lab findings: Abnormal Labs 07/06/20 07/06/20 07/07/20 05:24 17:16 04:50 WBC 13.5 H 12.7 H RBC Hgb Hct MCH MCHC RDW Plt Count Lymph % (Auto) Lymph # (Auto) Seg Neutrophils % Seg Neuts % (Manual) 86.0 H 87.0 H Lymphocytes % (Manual) 6.0 L 9.0 L Eosinophils % (Manual) Nucleated RBC % Seg Neutrophils # Seg Neutrophils # Man 11.6 H 11.0 H Lymphocytes # (Manual) 0.8 L 1.1 L Eosinophils # (Manual) PT INR D-Dimer Heparin Anti-Xa Level ABG pH POC ABG pCO2 POC ABG pO2 ABG pO2 ABG HCO3 ABG O2 Saturation ABG Base Excess ABG Hemoglobin ABG Oxyhemoglobin ABG Sodium ABG Potassium ABG Chloride ABG Glucose Oxyhemoglobin Carboxyhemoglobin Sodium Potassium Chloride Carbon Dioxide BUN Creatinine Glucose POC Glucose Lactic Acid Calcium Ferritin AST ALT Lactate Dehydrogenase 242 H C-Reactive Protein 7.30 H Total Protein Albumin Triglycerides Arterial Blood Glucose Arterial Blood Ionized Calcium Urine Creatinine Urine Total Protein Vancomycin Trough Coronavirus (PCR) SARS-CoV-2 IgG Ab 07/07/20 07/07/20 07/07/20 04:50 14:22 14:22 WBC RBC Hgb Hct MCH MCHC RDW Plt Count Lymph % (Auto) Lymph # (Auto) Seg Neutrophils % Seg Neuts % (Manual) Lymphocytes % (Manual) Eosinophils % (Manual) Nucleated RBC % Seg Neutrophils # Seg Neutrophils # Man Lymphocytes # (Manual) Eosinophils # (Manual) PT INR D-Dimer Heparin Anti-Xa Level ABG pH POC ABG pCO2 POC ABG pO2 ABG pO2 ABG HCO3 ABG O2 Saturation ABG Base Excess ABG Hemoglobin ABG Oxyhemoglobin ABG Sodium ABG Potassium ABG Chloride ABG Glucose Oxyhemoglobin Carboxyhemoglobin Sodium Potassium Chloride Carbon Dioxide BUN 18 H Creatinine Glucose 138 H POC Glucose Lactic Acid Calcium Ferritin 228.2 H AST ALT Lactate Dehydrogenase 277 H C-Reactive Protein Total Protein 5.9 L Albumin 3.4 L Triglycerides Arterial Blood Glucose Arterial Blood Ionized Calcium Urine Creatinine Urine Total Protein Vancomycin Trough Coronavirus (PCR) SARS-CoV-2 IgG Ab 07/08/20 07/08/20 07/08/20 11:18 12:57 16:13 WBC RBC Hgb Hct MCH MCHC RDW Plt Count Lymph % (Auto) Lymph # (Auto) Seg Neutrophils % Seg Neuts % (Manual) Lymphocytes % (Manual) Eosinophils % (Manual) Nucleated RBC % Seg Neutrophils # Seg Neutrophils # Man Lymphocytes # (Manual) Eosinophils # (Manual) PT INR D-Dimer Heparin Anti-Xa Level ABG pH POC ABG pCO2 POC ABG pO2 ABG pO2 39.3 L* ABG HCO3 ABG O2 Saturation 76.8 L ABG Base Excess ABG Hemoglobin ABG Oxyhemoglobin ABG Sodium ABG Potassium ABG Chloride ABG Glucose Oxyhemoglobin 75.3 L Carboxyhemoglobin Sodium Potassium Chloride Carbon Dioxide 20 L D BUN Creatinine Glucose 135 H POC Glucose 106 H Lactic Acid Calcium 8.0 L Ferritin AST ALT Lactate Dehydrogenase C-Reactive Protein Total Protein Albumin Triglycerides Arterial Blood Glucose Arterial Blood Ionized Calcium Urine Creatinine Urine Total Protein Vancomycin Trough Coronavirus (PCR) SARS-CoV-2 IgG Ab 07/08/20 07/08/20 07/09/20 17:04 18:45 04:00 WBC 15.6 H RBC Hgb Hct MCH MCHC RDW Plt Count Lymph % (Auto) 4.7 L Lymph # (Auto) 0.7 L Seg Neutrophils % Seg Neuts % (Manual) Lymphocytes % (Manual) Eosinophils % (Manual) Nucleated RBC % Seg Neutrophils # 14.2 H Seg Neutrophils # Man Lymphocytes # (Manual) Eosinophils # (Manual) PT INR D-Dimer Heparin Anti-Xa Level ABG pH POC ABG pCO2 POC ABG pO2 ABG pO2 181.8 H ABG HCO3 ABG O2 Saturation 99.1 H ABG Base Excess ABG Hemoglobin 11.4 L ABG Oxyhemoglobin ABG Sodium ABG Potassium ABG Chloride ABG Glucose Oxyhemoglobin Carboxyhemoglobin Sodium Potassium Chloride Carbon Dioxide BUN Creatinine Glucose POC Glucose 117 H Lactic Acid Calcium Ferritin AST ALT Lactate Dehydrogenase C-Reactive Protein Total Protein Albumin Triglycerides Arterial Blood Glucose Arterial Blood Ionized Calcium Urine Creatinine Urine Total Protein Vancomycin Trough Coronavirus (PCR) SARS-CoV-2 IgG Ab 07/09/20 07/09/20 07/09/20 04:00 04:00 04:49 WBC RBC Hgb Hct MCH MCHC RDW Plt Count Lymph % (Auto) Lymph # (Auto) Seg Neutrophils % Seg Neuts % (Manual) Lymphocytes % (Manual) Eosinophils % (Manual) Nucleated RBC % Seg Neutrophils # Seg Neutrophils # Man Lymphocytes # (Manual) Eosinophils # (Manual) PT INR D-Dimer Heparin Anti-Xa Level ABG pH POC ABG pCO2 POC ABG pO2 ABG pO2 ABG HCO3 26.2 H ABG O2 Saturation ABG Base Excess ABG Hemoglobin 11.2 L ABG Oxyhemoglobin ABG Sodium ABG Potassium ABG Chloride ABG Glucose Oxyhemoglobin 94.9 L Carboxyhemoglobin Sodium Potassium Chloride Carbon Dioxide BUN Creatinine Glucose 158 H POC Glucose Lactic Acid Calcium 8.2 L Ferritin 320.0 H AST ALT Lactate Dehydrogenase 391 H C-Reactive Protein 9.50 H Total Protein 5.9 L Albumin 3.2 L Triglycerides Arterial Blood Glucose Arterial Blood Ionized Calcium Urine Creatinine Urine Total Protein Vancomycin Trough Coronavirus (PCR) SARS-CoV-2 IgG Ab 07/09/20 07/09/20 07/09/20 11:56 17:49 23:39 WBC RBC Hgb Hct MCH MCHC RDW Plt Count Lymph % (Auto) Lymph # (Auto) Seg Neutrophils % Seg Neuts % (Manual) Lymphocytes % (Manual) Eosinophils % (Manual) Nucleated RBC % Seg Neutrophils # Seg Neutrophils # Man Lymphocytes # (Manual) Eosinophils # (Manual) PT INR D-Dimer Heparin Anti-Xa Level ABG pH POC ABG pCO2 POC ABG pO2 ABG pO2 ABG HCO3 ABG O2 Saturation ABG Base Excess ABG Hemoglobin ABG Oxyhemoglobin ABG Sodium ABG Potassium ABG Chloride ABG Glucose Oxyhemoglobin Carboxyhemoglobin Sodium Potassium Chloride Carbon Dioxide BUN Creatinine Glucose POC Glucose 156 H 119 H 145 H Lactic Acid Calcium Ferritin AST ALT Lactate Dehydrogenase C-Reactive Protein Total Protein Albumin Triglycerides Arterial Blood Glucose Arterial Blood Ionized Calcium Urine Creatinine Urine Total Protein Vancomycin Trough Coronavirus (PCR) SARS-CoV-2 IgG Ab 07/10/20 07/10/20 07/10/20 03:32 05:26 11:22 WBC RBC Hgb Hct MCH MCHC RDW Plt Count Lymph % (Auto) Lymph # (Auto) Seg Neutrophils % Seg Neuts % (Manual) Lymphocytes % (Manual) Eosinophils % (Manual) Nucleated RBC % Seg Neutrophils # Seg Neutrophils # Man Lymphocytes # (Manual) Eosinophils # (Manual) PT INR D-Dimer Heparin Anti-Xa Level ABG pH POC ABG pCO2 POC ABG pO2 ABG pO2 75.7 L ABG HCO3 27.5 H ABG O2 Saturation ABG Base Excess ABG Hemoglobin 9.3 L ABG Oxyhemoglobin ABG Sodium ABG Potassium ABG Chloride ABG Glucose Oxyhemoglobin 94.7 L Carboxyhemoglobin Sodium Potassium Chloride Carbon Dioxide BUN Creatinine Glucose POC Glucose 156 H 148 H Lactic Acid Calcium Ferritin AST ALT Lactate Dehydrogenase C-Reactive Protein Total Protein Albumin Triglycerides Arterial Blood Glucose Arterial Blood Ionized Calcium Urine Creatinine Urine Total Protein Vancomycin Trough Coronavirus (PCR) SARS-CoV-2 IgG Ab 07/10/20 07/10/20 07/10/20 12:10 12:10 18:20 WBC 14.1 H RBC 3.33 L Hgb 9.9 L Hct MCH MCHC RDW Plt Count Lymph % (Auto) Lymph # (Auto) Seg Neutrophils % Seg Neuts % (Manual) 89.0 H Lymphocytes % (Manual) 8.0 L Eosinophils % (Manual) Nucleated RBC % Seg Neutrophils # Seg Neutrophils # Man 12.5 H Lymphocytes # (Manual) 1.1 L Eosinophils # (Manual) PT INR D-Dimer Heparin Anti-Xa Level ABG pH POC ABG pCO2 POC ABG pO2 ABG pO2 ABG HCO3 ABG O2 Saturation ABG Base Excess ABG Hemoglobin ABG Oxyhemoglobin ABG Sodium ABG Potassium ABG Chloride ABG Glucose Oxyhemoglobin Carboxyhemoglobin Sodium Potassium Chloride Carbon Dioxide BUN 21 H Creatinine Glucose 154 H POC Glucose 181 H Lactic Acid Calcium 8.0 L Ferritin AST ALT Lactate Dehydrogenase C-Reactive Protein Total Protein 5.4 L Albumin 3.0 L Triglycerides Arterial Blood Glucose Arterial Blood Ionized Calcium Urine Creatinine Urine Total Protein Vancomycin Trough Coronavirus (PCR) SARS-CoV-2 IgG Ab 07/10/20 07/11/20 07/11/20 23:51 04:05 05:43 WBC RBC Hgb Hct MCH MCHC RDW Plt Count Lymph % (Auto) Lymph # (Auto) Seg Neutrophils % Seg Neuts % (Manual) Lymphocytes % (Manual) Eosinophils % (Manual) Nucleated RBC % Seg Neutrophils # Seg Neutrophils # Man Lymphocytes # (Manual) Eosinophils # (Manual) PT INR D-Dimer Heparin Anti-Xa Level ABG pH 7.348 L POC ABG pCO2 POC ABG pO2 ABG pO2 93.6 H ABG HCO3 28.5 H ABG O2 Saturation ABG Base Excess ABG Hemoglobin 10.1 L ABG Oxyhemoglobin ABG Sodium ABG Potassium ABG Chloride ABG Glucose Oxyhemoglobin Carboxyhemoglobin Sodium Potassium Chloride Carbon Dioxide BUN Creatinine Glucose POC Glucose 116 H 132 H Lactic Acid Calcium Ferritin AST ALT Lactate Dehydrogenase C-Reactive Protein Total Protein Albumin Triglycerides Arterial Blood Glucose Arterial Blood Ionized Calcium Urine Creatinine Urine Total Protein Vancomycin Trough Coronavirus (PCR) SARS-CoV-2 IgG Ab 07/11/20 07/11/20 07/11/20 09:11 09:11 09:11 WBC 15.8 H RBC 3.44 L Hgb Hct MCH MCHC RDW Plt Count Lymph % (Auto) Lymph # (Auto) Seg Neutrophils % Seg Neuts % (Manual) 92.0 H Lymphocytes % (Manual) 4.0 L Eosinophils % (Manual) Nucleated RBC % Seg Neutrophils # Seg Neutrophils # Man 14.5 H Lymphocytes # (Manual) 0.6 L Eosinophils # (Manual) PT INR D-Dimer 360.61 H Heparin Anti-Xa Level ABG pH POC ABG pCO2 POC ABG pO2 ABG pO2 ABG HCO3 ABG O2 Saturation ABG Base Excess ABG Hemoglobin ABG Oxyhemoglobin ABG Sodium ABG Potassium ABG Chloride ABG Glucose Oxyhemoglobin Carboxyhemoglobin Sodium Potassium Chloride 107.1 H Carbon Dioxide BUN 22 H Creatinine Glucose 149 H POC Glucose Lactic Acid Calcium 7.8 L Ferritin AST ALT Lactate Dehydrogenase 483 H C-Reactive Protein 2.30 H Total Protein 4.9 L Albumin 3.0 L Triglycerides Arterial Blood Glucose Arterial Blood Ionized Calcium Urine Creatinine Urine Total Protein Vancomycin Trough Coronavirus (PCR) SARS-CoV-2 IgG Ab 07/11/20 07/11/20 07/11/20 09:11 12:16 17:55 WBC RBC Hgb Hct MCH MCHC RDW Plt Count Lymph % (Auto) Lymph # (Auto) Seg Neutrophils % Seg Neuts % (Manual) Lymphocytes % (Manual) Eosinophils % (Manual) Nucleated RBC % Seg Neutrophils # Seg Neutrophils # Man Lymphocytes # (Manual) Eosinophils # (Manual) PT INR D-Dimer Heparin Anti-Xa Level ABG pH POC ABG pCO2 POC ABG pO2 ABG pO2 ABG HCO3 ABG O2 Saturation ABG Base Excess ABG Hemoglobin ABG Oxyhemoglobin ABG Sodium ABG Potassium ABG Chloride ABG Glucose Oxyhemoglobin Carboxyhemoglobin Sodium Potassium Chloride Carbon Dioxide BUN Creatinine Glucose POC Glucose 157 H 166 H Lactic Acid Calcium Ferritin 371.2 H AST ALT Lactate Dehydrogenase C-Reactive Protein Total Protein Albumin Triglycerides Arterial Blood Glucose Arterial Blood Ionized Calcium Urine Creatinine Urine Total Protein Vancomycin Trough Coronavirus (PCR) SARS-CoV-2 IgG Ab 07/12/20 07/12/20 07/12/20 00:32 04:00 04:00 WBC RBC 3.52 L Hgb Hct MCH MCHC RDW Plt Count Lymph % (Auto) Lymph # (Auto) Seg Neutrophils % Seg Neuts % (Manual) 90.0 H Lymphocytes % (Manual) 4.0 L Eosinophils % (Manual) Nucleated RBC % Seg Neutrophils # Seg Neutrophils # Man 9.5 H Lymphocytes # (Manual) 0.4 L Eosinophils # (Manual) PT INR D-Dimer Heparin Anti-Xa Level ABG pH POC ABG pCO2 POC ABG pO2 ABG pO2 ABG HCO3 ABG O2 Saturation ABG Base Excess ABG Hemoglobin ABG Oxyhemoglobin ABG Sodium ABG Potassium ABG Chloride ABG Glucose Oxyhemoglobin Carboxyhemoglobin Sodium Potassium Chloride Carbon Dioxide 31 H BUN 21 H Creatinine Glucose 175 H POC Glucose 178 H Lactic Acid Calcium 8.0 L Ferritin AST ALT Lactate Dehydrogenase C-Reactive Protein Total Protein 5.4 L Albumin 3.0 L Triglycerides Arterial Blood Glucose Arterial Blood Ionized Calcium Urine Creatinine Urine Total Protein Vancomycin Trough Coronavirus (PCR) SARS-CoV-2 IgG Ab 07/12/20 07/12/20 07/12/20 04:01 05:47 12:09 WBC RBC Hgb Hct MCH MCHC RDW Plt Count Lymph % (Auto) Lymph # (Auto) Seg Neutrophils % Seg Neuts % (Manual) Lymphocytes % (Manual) Eosinophils % (Manual) Nucleated RBC % Seg Neutrophils # Seg Neutrophils # Man Lymphocytes # (Manual) Eosinophils # (Manual) PT INR D-Dimer Heparin Anti-Xa Level ABG pH 7.465 H POC ABG pCO2 POC ABG pO2 ABG pO2 ABG HCO3 ABG O2 Saturation ABG Base Excess ABG Hemoglobin 10.6 L ABG Oxyhemoglobin ABG Sodium ABG Potassium ABG Chloride ABG Glucose 177 H Oxyhemoglobin Carboxyhemoglobin Sodium Potassium Chloride Carbon Dioxide BUN Creatinine Glucose POC Glucose 185 H 227 H Lactic Acid Calcium Ferritin AST ALT Lactate Dehydrogenase C-Reactive Protein Total Protein Albumin Triglycerides Arterial Blood Glucose 177 H Arterial Blood Ionized Calcium 4.5 L Urine Creatinine Urine Total Protein Vancomycin Trough Coronavirus (PCR) SARS-CoV-2 IgG Ab 07/12/20 07/12/20 07/13/20 17:34 23:57 05:06 WBC RBC Hgb Hct MCH MCHC RDW Plt Count Lymph % (Auto) Lymph # (Auto) Seg Neutrophils % Seg Neuts % (Manual) Lymphocytes % (Manual) Eosinophils % (Manual) Nucleated RBC % Seg Neutrophils # Seg Neutrophils # Man Lymphocytes # (Manual) Eosinophils # (Manual) PT INR D-Dimer Heparin Anti-Xa Level ABG pH POC ABG pCO2 POC ABG pO2 ABG pO2 ABG HCO3 ABG O2 Saturation ABG Base Excess ABG Hemoglobin ABG Oxyhemoglobin ABG Sodium ABG Potassium ABG Chloride ABG Glucose Oxyhemoglobin Carboxyhemoglobin Sodium Potassium Chloride Carbon Dioxide BUN Creatinine Glucose POC Glucose 202 H 163 H 166 H Lactic Acid Calcium Ferritin AST ALT Lactate Dehydrogenase C-Reactive Protein Total Protein Albumin Triglycerides Arterial Blood Glucose Arterial Blood Ionized Calcium Urine Creatinine Urine Total Protein Vancomycin Trough Coronavirus (PCR) SARS-CoV-2 IgG Ab 07/13/20 07/13/20 07/13/20 07:20 07:20 07:20 WBC 20.5 H RBC Hgb Hct MCH MCHC RDW Plt Count Lymph % (Auto) Lymph # (Auto) Seg Neutrophils % Seg Neuts % (Manual) 93.0 H Lymphocytes % (Manual) 3.0 L Eosinophils % (Manual) Nucleated RBC % Seg Neutrophils # Seg Neutrophils # Man 19.1 H Lymphocytes # (Manual) 0.6 L Eosinophils # (Manual) PT INR D-Dimer 826.36 H Heparin Anti-Xa Level ABG pH POC ABG pCO2 POC ABG pO2 ABG pO2 ABG HCO3 ABG O2 Saturation ABG Base Excess ABG Hemoglobin ABG Oxyhemoglobin ABG Sodium ABG Potassium ABG Chloride ABG Glucose Oxyhemoglobin Carboxyhemoglobin Sodium Potassium Chloride Carbon Dioxide 31 H BUN 25 H Creatinine Glucose 163 H POC Glucose Lactic Acid Calcium 8.1 L Ferritin AST ALT Lactate Dehydrogenase 512 H C-Reactive Protein 1.80 H Total Protein 5.8 L Albumin 3.2 L Triglycerides Arterial Blood Glucose Arterial Blood Ionized Calcium Urine Creatinine Urine Total Protein Vancomycin Trough Coronavirus (PCR) SARS-CoV-2 IgG Ab 07/13/20 07/13/20 07/13/20 07:20 11:37 17:20 WBC RBC Hgb Hct MCH MCHC RDW Plt Count Lymph % (Auto) Lymph # (Auto) Seg Neutrophils % Seg Neuts % (Manual) Lymphocytes % (Manual) Eosinophils % (Manual) Nucleated RBC % Seg Neutrophils # Seg Neutrophils # Man Lymphocytes # (Manual) Eosinophils # (Manual) PT INR D-Dimer Heparin Anti-Xa Level ABG pH POC ABG pCO2 POC ABG pO2 ABG pO2 ABG HCO3 ABG O2 Saturation ABG Base Excess ABG Hemoglobin ABG Oxyhemoglobin ABG Sodium ABG Potassium ABG Chloride ABG Glucose Oxyhemoglobin Carboxyhemoglobin Sodium Potassium Chloride Carbon Dioxide BUN Creatinine Glucose POC Glucose 232 H 210 H Lactic Acid Calcium Ferritin 219.8 H AST ALT Lactate Dehydrogenase C-Reactive Protein Total Protein Albumin Triglycerides Arterial Blood Glucose Arterial Blood Ionized Calcium Urine Creatinine Urine Total Protein Vancomycin Trough Coronavirus (PCR) SARS-CoV-2 IgG Ab 07/13/20 07/13/20 07/14/20 23:57 Unknown 05:22 WBC RBC Hgb Hct MCH MCHC RDW Plt Count Lymph % (Auto) Lymph # (Auto) Seg Neutrophils % Seg Neuts % (Manual) Lymphocytes % (Manual) Eosinophils % (Manual) Nucleated RBC % Seg Neutrophils # Seg Neutrophils # Man Lymphocytes # (Manual) Eosinophils # (Manual) PT INR D-Dimer Heparin Anti-Xa Level ABG pH 7.341 L POC ABG pCO2 POC ABG pO2 133.0 H ABG pO2 56.5 L ABG HCO3 29.7 H ABG O2 Saturation 89.3 L ABG Base Excess ABG Hemoglobin 11.0 L ABG Oxyhemoglobin ABG Sodium ABG Potassium ABG Chloride ABG Glucose 207 H Oxyhemoglobin 87.7 L Carboxyhemoglobin Sodium Potassium Chloride Carbon Dioxide BUN Creatinine Glucose POC Glucose 190 H Lactic Acid Calcium Ferritin AST ALT Lactate Dehydrogenase C-Reactive Protein Total Protein Albumin Triglycerides Arterial Blood Glucose 207 H Arterial Blood Ionized Calcium 4.5 L Urine Creatinine Urine Total Protein Vancomycin Trough Coronavirus (PCR) SARS-CoV-2 IgG Ab 07/14/20 07/14/20 07/14/20 05:54 11:16 17:50 WBC RBC Hgb Hct MCH MCHC RDW Plt Count Lymph % (Auto) Lymph # (Auto) Seg Neutrophils % Seg Neuts % (Manual) Lymphocytes % (Manual) Eosinophils % (Manual) Nucleated RBC % Seg Neutrophils # Seg Neutrophils # Man Lymphocytes # (Manual) Eosinophils # (Manual) PT INR D-Dimer Heparin Anti-Xa Level ABG pH POC ABG pCO2 POC ABG pO2 ABG pO2 ABG HCO3 ABG O2 Saturation ABG Base Excess ABG Hemoglobin ABG Oxyhemoglobin ABG Sodium ABG Potassium ABG Chloride ABG Glucose Oxyhemoglobin Carboxyhemoglobin Sodium Potassium Chloride Carbon Dioxide BUN Creatinine Glucose POC Glucose 206 H 196 H 205 H Lactic Acid Calcium Ferritin AST ALT Lactate Dehydrogenase C-Reactive Protein Total Protein Albumin Triglycerides Arterial Blood Glucose Arterial Blood Ionized Calcium Urine Creatinine Urine Total Protein Vancomycin Trough Coronavirus (PCR) SARS-CoV-2 IgG Ab 07/14/20 07/15/20 07/15/20 23:28 03:16 06:12 WBC RBC Hgb Hct MCH MCHC RDW Plt Count Lymph % (Auto) Lymph # (Auto) Seg Neutrophils % Seg Neuts % (Manual) Lymphocytes % (Manual) Eosinophils % (Manual) Nucleated RBC % Seg Neutrophils # Seg Neutrophils # Man Lymphocytes # (Manual) Eosinophils # (Manual) PT INR D-Dimer Heparin Anti-Xa Level ABG pH POC ABG pCO2 49.2 H POC ABG pO2 120.3 H ABG pO2 ABG HCO3 ABG O2 Saturation ABG Base Excess ABG Hemoglobin 9.5 L ABG Oxyhemoglobin ABG Sodium ABG Potassium ABG Chloride ABG Glucose 148 H Oxyhemoglobin Carboxyhemoglobin Sodium Potassium Chloride Carbon Dioxide BUN Creatinine Glucose POC Glucose 160 H 178 H Lactic Acid Calcium Ferritin AST ALT Lactate Dehydrogenase C-Reactive Protein Total Protein Albumin Triglycerides Arterial Blood Glucose 148 H Arterial Blood Ionized Calcium Urine Creatinine Urine Total Protein Vancomycin Trough Coronavirus (PCR) SARS-CoV-2 IgG Ab 07/15/20 07/15/20 07/15/20 09:00 12:32 14:30 WBC RBC Hgb Hct MCH MCHC RDW Plt Count Lymph % (Auto) Lymph # (Auto) Seg Neutrophils % Seg Neuts % (Manual) Lymphocytes % (Manual) Eosinophils % (Manual) Nucleated RBC % Seg Neutrophils # Seg Neutrophils # Man Lymphocytes # (Manual) Eosinophils # (Manual) PT INR D-Dimer Heparin Anti-Xa Level ABG pH POC ABG pCO2 POC ABG pO2 ABG pO2 ABG HCO3 ABG O2 Saturation ABG Base Excess ABG Hemoglobin ABG Oxyhemoglobin ABG Sodium ABG Potassium ABG Chloride ABG Glucose Oxyhemoglobin Carboxyhemoglobin Sodium Potassium Chloride Carbon Dioxide BUN Creatinine Glucose POC Glucose 173 H Lactic Acid Calcium Ferritin AST ALT Lactate Dehydrogenase 531 H C-Reactive Protein Total Protein Albumin Triglycerides Arterial Blood Glucose Arterial Blood Ionized Calcium Urine Creatinine Urine Total Protein Vancomycin Trough Coronavirus (PCR) SARS-CoV-2 IgG Ab Reactive A 07/15/20 07/15/20 07/16/20 18:24 23:35 04:03 WBC RBC Hgb Hct MCH MCHC RDW Plt Count Lymph % (Auto) Lymph # (Auto) Seg Neutrophils % Seg Neuts % (Manual) Lymphocytes % (Manual) Eosinophils % (Manual) Nucleated RBC % Seg Neutrophils # Seg Neutrophils # Man Lymphocytes # (Manual) Eosinophils # (Manual) PT INR D-Dimer Heparin Anti-Xa Level ABG pH POC ABG pCO2 POC ABG pO2 ABG pO2 72.7 L ABG HCO3 35.5 H ABG O2 Saturation ABG Base Excess 9.4 H ABG Hemoglobin 10.6 L ABG Oxyhemoglobin ABG Sodium ABG Potassium ABG Chloride ABG Glucose Oxyhemoglobin 93.6 L Carboxyhemoglobin Sodium Potassium Chloride Carbon Dioxide BUN Creatinine Glucose POC Glucose 173 H 181 H Lactic Acid Calcium Ferritin AST ALT Lactate Dehydrogenase C-Reactive Protein Total Protein Albumin Triglycerides Arterial Blood Glucose Arterial Blood Ionized Calcium Urine Creatinine Urine Total Protein Vancomycin Trough Coronavirus (PCR) SARS-CoV-2 IgG Ab 07/16/20 07/16/20 07/16/20 05:35 09:00 09:00 WBC 16.5 H RBC 3.59 L Hgb Hct MCH MCHC RDW Plt Count Lymph % (Auto) Lymph # (Auto) Seg Neutrophils % Seg Neuts % (Manual) 96.0 H Lymphocytes % (Manual) 3.0 L Eosinophils % (Manual) Nucleated RBC % Seg Neutrophils # Seg Neutrophils # Man 15.8 H Lymphocytes # (Manual) 0.5 L Eosinophils # (Manual) PT INR D-Dimer Heparin Anti-Xa Level ABG pH POC ABG pCO2 POC ABG pO2 ABG pO2 ABG HCO3 ABG O2 Saturation ABG Base Excess ABG Hemoglobin ABG Oxyhemoglobin ABG Sodium ABG Potassium ABG Chloride ABG Glucose Oxyhemoglobin Carboxyhemoglobin Sodium Potassium Chloride Carbon Dioxide 39 H D BUN 25 H Creatinine 0.4 L Glucose 167 H POC Glucose 129 H Lactic Acid Calcium 8.3 L Ferritin AST ALT Lactate Dehydrogenase C-Reactive Protein Total Protein Albumin Triglycerides Arterial Blood Glucose Arterial Blood Ionized Calcium Urine Creatinine Urine Total Protein Vancomycin Trough Coronavirus (PCR) SARS-CoV-2 IgG Ab 07/16/20 07/16/20 07/17/20 12:32 18:28 00:09 WBC RBC Hgb Hct MCH MCHC RDW Plt Count Lymph % (Auto) Lymph # (Auto) Seg Neutrophils % Seg Neuts % (Manual) Lymphocytes % (Manual) Eosinophils % (Manual) Nucleated RBC % Seg Neutrophils # Seg Neutrophils # Man Lymphocytes # (Manual) Eosinophils # (Manual) PT INR D-Dimer Heparin Anti-Xa Level ABG pH POC ABG pCO2 POC ABG pO2 ABG pO2 ABG HCO3 ABG O2 Saturation ABG Base Excess ABG Hemoglobin ABG Oxyhemoglobin ABG Sodium ABG Potassium ABG Chloride ABG Glucose Oxyhemoglobin Carboxyhemoglobin Sodium Potassium Chloride Carbon Dioxide BUN Creatinine Glucose POC Glucose 187 H 174 H 184 H Lactic Acid Calcium Ferritin AST ALT Lactate Dehydrogenase C-Reactive Protein Total Protein Albumin Triglycerides Arterial Blood Glucose Arterial Blood Ionized Calcium Urine Creatinine Urine Total Protein Vancomycin Trough Coronavirus (PCR) SARS-CoV-2 IgG Ab 07/17/20 07/17/20 07/17/20 04:30 05:47 13:03 WBC RBC Hgb Hct MCH MCHC RDW Plt Count Lymph % (Auto) Lymph # (Auto) Seg Neutrophils % Seg Neuts % (Manual) Lymphocytes % (Manual) Eosinophils % (Manual) Nucleated RBC % Seg Neutrophils # Seg Neutrophils # Man Lymphocytes # (Manual) Eosinophils # (Manual) PT INR D-Dimer Heparin Anti-Xa Level ABG pH POC ABG pCO2 POC ABG pO2 ABG pO2 ABG HCO3 38.1 H ABG O2 Saturation ABG Base Excess 11.3 H ABG Hemoglobin 10.5 L ABG Oxyhemoglobin ABG Sodium ABG Potassium ABG Chloride ABG Glucose Oxyhemoglobin Carboxyhemoglobin Sodium Potassium Chloride Carbon Dioxide BUN Creatinine Glucose POC Glucose 135 H 210 H Lactic Acid Calcium Ferritin AST ALT Lactate Dehydrogenase C-Reactive Protein Total Protein Albumin Triglycerides Arterial Blood Glucose Arterial Blood Ionized Calcium Urine Creatinine Urine Total Protein Vancomycin Trough Coronavirus (PCR) SARS-CoV-2 IgG Ab 07/17/20 07/17/20 07/18/20 16:50 23:39 04:01 WBC RBC Hgb Hct MCH MCHC RDW Plt Count Lymph % (Auto) Lymph # (Auto) Seg Neutrophils % Seg Neuts % (Manual) Lymphocytes % (Manual) Eosinophils % (Manual) Nucleated RBC % Seg Neutrophils # Seg Neutrophils # Man Lymphocytes # (Manual) Eosinophils # (Manual) PT INR D-Dimer Heparin Anti-Xa Level ABG pH POC ABG pCO2 56.8 H POC ABG pO2 61.9 L ABG pO2 ABG HCO3 ABG O2 Saturation ABG Base Excess ABG Hemoglobin 11.7 L ABG Oxyhemoglobin ABG Sodium 134.2 L ABG Potassium 4.7 H ABG Chloride 97.0 L ABG Glucose 173 H Oxyhemoglobin Carboxyhemoglobin Sodium Potassium Chloride Carbon Dioxide BUN Creatinine Glucose POC Glucose 193 H 163 H Lactic Acid Calcium Ferritin AST ALT Lactate Dehydrogenase C-Reactive Protein Total Protein Albumin Triglycerides Arterial Blood Glucose 173 H Arterial Blood Ionized Calcium Urine Creatinine Urine Total Protein Vancomycin Trough Coronavirus (PCR) SARS-CoV-2 IgG Ab 07/18/20 07/18/20 07/18/20 05:41 12:03 17:26 WBC RBC Hgb Hct MCH MCHC RDW Plt Count Lymph % (Auto) Lymph # (Auto) Seg Neutrophils % Seg Neuts % (Manual) Lymphocytes % (Manual) Eosinophils % (Manual) Nucleated RBC % Seg Neutrophils # Seg Neutrophils # Man Lymphocytes # (Manual) Eosinophils # (Manual) PT INR D-Dimer Heparin Anti-Xa Level ABG pH POC ABG pCO2 POC ABG pO2 ABG pO2 ABG HCO3 ABG O2 Saturation ABG Base Excess ABG Hemoglobin ABG Oxyhemoglobin ABG Sodium ABG Potassium ABG Chloride ABG Glucose Oxyhemoglobin Carboxyhemoglobin Sodium Potassium Chloride Carbon Dioxide BUN Creatinine Glucose POC Glucose 153 H 177 H 160 H Lactic Acid Calcium Ferritin AST ALT Lactate Dehydrogenase C-Reactive Protein Total Protein Albumin Triglycerides Arterial Blood Glucose Arterial Blood Ionized Calcium Urine Creatinine Urine Total Protein Vancomycin Trough Coronavirus (PCR) SARS-CoV-2 IgG Ab 07/18/20 07/19/20 07/19/20 23:58 04:15 05:05 WBC RBC Hgb Hct MCH MCHC RDW Plt Count Lymph % (Auto) Lymph # (Auto) Seg Neutrophils % Seg Neuts % (Manual) Lymphocytes % (Manual) Eosinophils % (Manual) Nucleated RBC % Seg Neutrophils # Seg Neutrophils # Man Lymphocytes # (Manual) Eosinophils # (Manual) PT INR D-Dimer Heparin Anti-Xa Level ABG pH 7.465 H POC ABG pCO2 49.1 H POC ABG pO2 49.4 L ABG pO2 ABG HCO3 ABG O2 Saturation ABG Base Excess ABG Hemoglobin 11.6 L ABG Oxyhemoglobin ABG Sodium 132.3 L ABG Potassium ABG Chloride 97.0 L ABG Glucose 148 H Oxyhemoglobin Carboxyhemoglobin Sodium Potassium Chloride Carbon Dioxide BUN Creatinine Glucose POC Glucose 144 H 117 H Lactic Acid Calcium Ferritin AST ALT Lactate Dehydrogenase C-Reactive Protein Total Protein Albumin Triglycerides Arterial Blood Glucose 148 H Arterial Blood Ionized Calcium Urine Creatinine Urine Total Protein Vancomycin Trough Coronavirus (PCR) SARS-CoV-2 IgG Ab 07/19/20 07/19/20 07/19/20 08:30 08:30 13:21 WBC 17.2 H RBC 3.59 L Hgb Hct MCH MCHC RDW Plt Count Lymph % (Auto) Lymph # (Auto) Seg Neutrophils % Seg Neuts % (Manual) Lymphocytes % (Manual) Eosinophils % (Manual) Nucleated RBC % Seg Neutrophils # Seg Neutrophils # Man Lymphocytes # (Manual) Eosinophils # (Manual) PT INR D-Dimer Heparin Anti-Xa Level ABG pH POC ABG pCO2 POC ABG pO2 ABG pO2 ABG HCO3 ABG O2 Saturation ABG Base Excess ABG Hemoglobin ABG Oxyhemoglobin ABG Sodium ABG Potassium ABG Chloride ABG Glucose Oxyhemoglobin Carboxyhemoglobin Sodium Potassium Chloride 95.7 L Carbon Dioxide 37 H BUN 20 H Creatinine 0.4 L Glucose 125 H POC Glucose 137 H Lactic Acid Calcium 8.1 L Ferritin AST ALT Lactate Dehydrogenase C-Reactive Protein Total Protein Albumin Triglycerides Arterial Blood Glucose Arterial Blood Ionized Calcium Urine Creatinine Urine Total Protein Vancomycin Trough Coronavirus (PCR) SARS-CoV-2 IgG Ab 07/19/20 07/19/20 07/20/20 16:29 17:28 00:25 WBC RBC Hgb Hct MCH MCHC RDW Plt Count Lymph % (Auto) Lymph # (Auto) Seg Neutrophils % Seg Neuts % (Manual) Lymphocytes % (Manual) Eosinophils % (Manual) Nucleated RBC % Seg Neutrophils # Seg Neutrophils # Man Lymphocytes # (Manual) Eosinophils # (Manual) PT INR D-Dimer Heparin Anti-Xa Level ABG pH POC ABG pCO2 53.4 H POC ABG pO2 71.0 L ABG pO2 ABG HCO3 ABG O2 Saturation ABG Base Excess ABG Hemoglobin 11.2 L ABG Oxyhemoglobin 93.6 L ABG Sodium 130.9 L ABG Potassium ABG Chloride 95.0 L ABG Glucose 188 H Oxyhemoglobin Carboxyhemoglobin Sodium Potassium Chloride Carbon Dioxide BUN Creatinine Glucose POC Glucose 174 H 188 H Lactic Acid Calcium Ferritin AST ALT Lactate Dehydrogenase C-Reactive Protein Total Protein Albumin Triglycerides Arterial Blood Glucose 188 H Arterial Blood Ionized Calcium 4.4 L Urine Creatinine Urine Total Protein Vancomycin Trough Coronavirus (PCR) SARS-CoV-2 IgG Ab 07/20/20 07/20/20 07/20/20 04:14 05:23 12:12 WBC RBC Hgb Hct MCH MCHC RDW Plt Count Lymph % (Auto) Lymph # (Auto) Seg Neutrophils % Seg Neuts % (Manual) Lymphocytes % (Manual) Eosinophils % (Manual) Nucleated RBC % Seg Neutrophils # Seg Neutrophils # Man Lymphocytes # (Manual) Eosinophils # (Manual) PT INR D-Dimer Heparin Anti-Xa Level ABG pH POC ABG pCO2 52.7 H POC ABG pO2 59.5 L ABG pO2 ABG HCO3 ABG O2 Saturation ABG Base Excess ABG Hemoglobin 10.6 L ABG Oxyhemoglobin ABG Sodium 134.4 L ABG Potassium ABG Chloride ABG Glucose 176 H Oxyhemoglobin Carboxyhemoglobin Sodium Potassium Chloride Carbon Dioxide BUN Creatinine Glucose POC Glucose 212 H 190 H Lactic Acid Calcium Ferritin AST ALT Lactate Dehydrogenase C-Reactive Protein Total Protein Albumin Triglycerides Arterial Blood Glucose 176 H Arterial Blood Ionized Calcium 4.5 L Urine Creatinine Urine Total Protein Vancomycin Trough Coronavirus (PCR) SARS-CoV-2 IgG Ab 07/20/20 07/21/20 07/21/20 16:59 00:01 04:30 WBC RBC Hgb Hct MCH MCHC RDW Plt Count Lymph % (Auto) Lymph # (Auto) Seg Neutrophils % Seg Neuts % (Manual) Lymphocytes % (Manual) Eosinophils % (Manual) Nucleated RBC % Seg Neutrophils # Seg Neutrophils # Man Lymphocytes # (Manual) Eosinophils # (Manual) PT INR D-Dimer Heparin Anti-Xa Level ABG pH 7.468 H POC ABG pCO2 POC ABG pO2 63.3 L ABG pO2 ABG HCO3 ABG O2 Saturation ABG Base Excess ABG Hemoglobin 11 L ABG Oxyhemoglobin ABG Sodium 135.0 L ABG Potassium ABG Chloride ABG Glucose 204 H Oxyhemoglobin Carboxyhemoglobin Sodium Potassium Chloride Carbon Dioxide BUN Creatinine Glucose POC Glucose 201 H 177 H Lactic Acid Calcium Ferritin AST ALT Lactate Dehydrogenase C-Reactive Protein Total Protein Albumin Triglycerides Arterial Blood Glucose 204 H Arterial Blood Ionized Calcium 4.5 L Urine Creatinine Urine Total Protein Vancomycin Trough Coronavirus (PCR) SARS-CoV-2 IgG Ab 07/21/20 07/21/20 07/21/20 05:26 11:50 17:16 WBC RBC Hgb Hct MCH MCHC RDW Plt Count Lymph % (Auto) Lymph # (Auto) Seg Neutrophils % Seg Neuts % (Manual) Lymphocytes % (Manual) Eosinophils % (Manual) Nucleated RBC % Seg Neutrophils # Seg Neutrophils # Man Lymphocytes # (Manual) Eosinophils # (Manual) PT INR D-Dimer Heparin Anti-Xa Level ABG pH POC ABG pCO2 POC ABG pO2 ABG pO2 ABG HCO3 ABG O2 Saturation ABG Base Excess ABG Hemoglobin ABG Oxyhemoglobin ABG Sodium ABG Potassium ABG Chloride ABG Glucose Oxyhemoglobin Carboxyhemoglobin Sodium Potassium Chloride Carbon Dioxide BUN Creatinine Glucose POC Glucose 175 H 157 H 148 H Lactic Acid Calcium Ferritin AST ALT Lactate Dehydrogenase C-Reactive Protein Total Protein Albumin Triglycerides Arterial Blood Glucose Arterial Blood Ionized Calcium Urine Creatinine Urine Total Protein Vancomycin Trough Coronavirus (PCR) SARS-CoV-2 IgG Ab 07/22/20 07/22/20 07/22/20 00:01 03:26 05:16 WBC RBC Hgb Hct MCH MCHC RDW Plt Count Lymph % (Auto) Lymph # (Auto) Seg Neutrophils % Seg Neuts % (Manual) Lymphocytes % (Manual) Eosinophils % (Manual) Nucleated RBC % Seg Neutrophils # Seg Neutrophils # Man Lymphocytes # (Manual) Eosinophils # (Manual) PT INR D-Dimer Heparin Anti-Xa Level ABG pH POC ABG pCO2 POC ABG pO2 54.2 L ABG pO2 ABG HCO3 ABG O2 Saturation ABG Base Excess ABG Hemoglobin 10.9 L ABG Oxyhemoglobin ABG Sodium 133.7 L ABG Potassium ABG Chloride ABG Glucose 217 H Oxyhemoglobin Carboxyhemoglobin Sodium Potassium Chloride Carbon Dioxide BUN Creatinine Glucose POC Glucose 172 H 182 H Lactic Acid Calcium Ferritin AST ALT Lactate Dehydrogenase C-Reactive Protein Total Protein Albumin Triglycerides Arterial Blood Glucose 217 H Arterial Blood Ionized Calcium 4.5 L Urine Creatinine Urine Total Protein Vancomycin Trough Coronavirus (PCR) SARS-CoV-2 IgG Ab 07/22/20 07/22/20 07/23/20 11:43 17:08 04:00 WBC 11.6 H RBC 3.54 L Hgb Hct MCH MCHC RDW Plt Count Lymph % (Auto) Lymph # (Auto) Seg Neutrophils % Seg Neuts % (Manual) 94.0 H Lymphocytes % (Manual) 5.0 L Eosinophils % (Manual) Nucleated RBC % Seg Neutrophils # Seg Neutrophils # Man 10.9 H Lymphocytes # (Manual) 0.6 L Eosinophils # (Manual) PT INR D-Dimer Heparin Anti-Xa Level ABG pH POC ABG pCO2 POC ABG pO2 ABG pO2 ABG HCO3 ABG O2 Saturation ABG Base Excess ABG Hemoglobin ABG Oxyhemoglobin ABG Sodium ABG Potassium ABG Chloride ABG Glucose Oxyhemoglobin Carboxyhemoglobin Sodium Potassium Chloride Carbon Dioxide BUN Creatinine Glucose POC Glucose 159 H 163 H Lactic Acid Calcium Ferritin AST ALT Lactate Dehydrogenase C-Reactive Protein Total Protein Albumin Triglycerides Arterial Blood Glucose Arterial Blood Ionized Calcium Urine Creatinine Urine Total Protein Vancomycin Trough Coronavirus (PCR) SARS-CoV-2 IgG Ab 07/23/20 07/23/20 07/23/20 04:00 04:53 04:54 WBC RBC Hgb Hct MCH MCHC RDW Plt Count Lymph % (Auto) Lymph # (Auto) Seg Neutrophils % Seg Neuts % (Manual) Lymphocytes % (Manual) Eosinophils % (Manual) Nucleated RBC % Seg Neutrophils # Seg Neutrophils # Man Lymphocytes # (Manual) Eosinophils # (Manual) PT INR D-Dimer Heparin Anti-Xa Level ABG pH 7.453 H POC ABG pCO2 POC ABG pO2 ABG pO2 ABG HCO3 32.4 H ABG O2 Saturation ABG Base Excess 7.5 H ABG Hemoglobin 10.7 L ABG Oxyhemoglobin ABG Sodium ABG Potassium ABG Chloride ABG Glucose Oxyhemoglobin Carboxyhemoglobin Sodium Potassium Chloride Carbon Dioxide 35 H BUN Creatinine 0.4 L Glucose 112 H POC Glucose 169 H Lactic Acid Calcium 8.2 L Ferritin AST ALT Lactate Dehydrogenase C-Reactive Protein Total Protein Albumin Triglycerides Arterial Blood Glucose Arterial Blood Ionized Calcium Urine Creatinine Urine Total Protein Vancomycin Trough Coronavirus (PCR) SARS-CoV-2 IgG Ab 07/23/20 07/23/20 07/23/20 11:50 23:19 Unknown WBC RBC Hgb Hct MCH MCHC RDW Plt Count Lymph % (Auto) Lymph # (Auto) Seg Neutrophils % Seg Neuts % (Manual) Lymphocytes % (Manual) Eosinophils % (Manual) Nucleated RBC % Seg Neutrophils # Seg Neutrophils # Man Lymphocytes # (Manual) Eosinophils # (Manual) PT INR D-Dimer Heparin Anti-Xa Level ABG pH POC ABG pCO2 POC ABG pO2 ABG pO2 ABG HCO3 ABG O2 Saturation ABG Base Excess ABG Hemoglobin ABG Oxyhemoglobin ABG Sodium ABG Potassium ABG Chloride ABG Glucose Oxyhemoglobin Carboxyhemoglobin Sodium Potassium Chloride Carbon Dioxide BUN Creatinine Glucose POC Glucose 118 H 168 H Lactic Acid Calcium Ferritin AST ALT Lactate Dehydrogenase C-Reactive Protein Total Protein Albumin Triglycerides Arterial Blood Glucose Arterial Blood Ionized Calcium Urine Creatinine Urine Total Protein Vancomycin Trough Coronavirus (PCR) Positive A SARS-CoV-2 IgG Ab 07/24/20 07/24/20 07/24/20 04:11 05:37 11:42 WBC RBC Hgb Hct MCH MCHC RDW Plt Count Lymph % (Auto) Lymph # (Auto) Seg Neutrophils % Seg Neuts % (Manual) Lymphocytes % (Manual) Eosinophils % (Manual) Nucleated RBC % Seg Neutrophils # Seg Neutrophils # Man Lymphocytes # (Manual) Eosinophils # (Manual) PT INR D-Dimer Heparin Anti-Xa Level ABG pH POC ABG pCO2 POC ABG pO2 ABG pO2 54.4 L ABG HCO3 34.3 H ABG O2 Saturation 89.0 L ABG Base Excess 8.5 H ABG Hemoglobin 11.0 L ABG Oxyhemoglobin ABG Sodium ABG Potassium ABG Chloride ABG Glucose Oxyhemoglobin 87.0 L Carboxyhemoglobin Sodium Potassium Chloride Carbon Dioxide BUN Creatinine Glucose POC Glucose 115 H 166 H Lactic Acid Calcium Ferritin AST ALT Lactate Dehydrogenase C-Reactive Protein Total Protein Albumin Triglycerides Arterial Blood Glucose Arterial Blood Ionized Calcium Urine Creatinine Urine Total Protein Vancomycin Trough Coronavirus (PCR) SARS-CoV-2 IgG Ab 07/24/20 07/24/20 07/25/20 17:39 23:38 03:53 WBC RBC Hgb Hct MCH MCHC RDW Plt Count Lymph % (Auto) Lymph # (Auto) Seg Neutrophils % Seg Neuts % (Manual) Lymphocytes % (Manual) Eosinophils % (Manual) Nucleated RBC % Seg Neutrophils # Seg Neutrophils # Man Lymphocytes # (Manual) Eosinophils # (Manual) PT INR D-Dimer Heparin Anti-Xa Level ABG pH POC ABG pCO2 POC ABG pO2 ABG pO2 175.9 H ABG HCO3 34.0 H ABG O2 Saturation 99.1 H ABG Base Excess 8.2 H ABG Hemoglobin 10.6 L ABG Oxyhemoglobin ABG Sodium ABG Potassium ABG Chloride ABG Glucose Oxyhemoglobin Carboxyhemoglobin Sodium Potassium Chloride Carbon Dioxide BUN Creatinine Glucose POC Glucose 150 H 139 H Lactic Acid Calcium Ferritin AST ALT Lactate Dehydrogenase C-Reactive Protein Total Protein Albumin Triglycerides Arterial Blood Glucose Arterial Blood Ionized Calcium Urine Creatinine Urine Total Protein Vancomycin Trough Coronavirus (PCR) SARS-CoV-2 IgG Ab 07/25/20 07/25/20 07/25/20 05:47 12:09 23:46 WBC RBC Hgb Hct MCH MCHC RDW Plt Count Lymph % (Auto) Lymph # (Auto) Seg Neutrophils % Seg Neuts % (Manual) Lymphocytes % (Manual) Eosinophils % (Manual) Nucleated RBC % Seg Neutrophils # Seg Neutrophils # Man Lymphocytes # (Manual) Eosinophils # (Manual) PT INR D-Dimer Heparin Anti-Xa Level ABG pH POC ABG pCO2 POC ABG pO2 ABG pO2 ABG HCO3 ABG O2 Saturation ABG Base Excess ABG Hemoglobin ABG Oxyhemoglobin ABG Sodium ABG Potassium ABG Chloride ABG Glucose Oxyhemoglobin Carboxyhemoglobin Sodium Potassium Chloride Carbon Dioxide BUN Creatinine Glucose POC Glucose 144 H 152 H 116 H Lactic Acid Calcium Ferritin AST ALT Lactate Dehydrogenase C-Reactive Protein Total Protein Albumin Triglycerides Arterial Blood Glucose Arterial Blood Ionized Calcium Urine Creatinine Urine Total Protein Vancomycin Trough Coronavirus (PCR) SARS-CoV-2 IgG Ab 07/26/20 07/26/20 07/26/20 03:48 05:36 11:28 WBC RBC Hgb Hct MCH MCHC RDW Plt Count Lymph % (Auto) Lymph # (Auto) Seg Neutrophils % Seg Neuts % (Manual) Lymphocytes % (Manual) Eosinophils % (Manual) Nucleated RBC % Seg Neutrophils # Seg Neutrophils # Man Lymphocytes # (Manual) Eosinophils # (Manual) PT INR D-Dimer Heparin Anti-Xa Level ABG pH POC ABG pCO2 POC ABG pO2 ABG pO2 73.4 L ABG HCO3 35.0 H ABG O2 Saturation ABG Base Excess 8.3 H ABG Hemoglobin 9.8 L ABG Oxyhemoglobin ABG Sodium ABG Potassium ABG Chloride ABG Glucose Oxyhemoglobin 93.7 L Carboxyhemoglobin Sodium Potassium Chloride Carbon Dioxide BUN Creatinine Glucose POC Glucose 136 H 145 H Lactic Acid Calcium Ferritin AST ALT Lactate Dehydrogenase C-Reactive Protein Total Protein Albumin Triglycerides Arterial Blood Glucose Arterial Blood Ionized Calcium Urine Creatinine Urine Total Protein Vancomycin Trough Coronavirus (PCR) SARS-CoV-2 IgG Ab 07/26/20 07/26/20 07/26/20 14:23 17:19 23:33 WBC 12.0 H RBC 3.12 L Hgb 9.5 L Hct 28.6 L MCH MCHC RDW Plt Count Lymph % (Auto) 4.2 L Lymph # (Auto) 0.5 L Seg Neutrophils % 89.8 H Seg Neuts % (Manual) Lymphocytes % (Manual) Eosinophils % (Manual) Nucleated RBC % Seg Neutrophils # 10.8 H Seg Neutrophils # Man Lymphocytes # (Manual) Eosinophils # (Manual) PT INR D-Dimer Heparin Anti-Xa Level ABG pH POC ABG pCO2 POC ABG pO2 ABG pO2 ABG HCO3 ABG O2 Saturation ABG Base Excess ABG Hemoglobin ABG Oxyhemoglobin ABG Sodium ABG Potassium ABG Chloride ABG Glucose Oxyhemoglobin Carboxyhemoglobin Sodium Potassium Chloride Carbon Dioxide BUN Creatinine Glucose POC Glucose 202 H 122 H Lactic Acid Calcium Ferritin AST ALT Lactate Dehydrogenase C-Reactive Protein Total Protein Albumin Triglycerides Arterial Blood Glucose Arterial Blood Ionized Calcium Urine Creatinine Urine Total Protein Vancomycin Trough Coronavirus (PCR) SARS-CoV-2 IgG Ab 07/27/20 07/27/20 07/27/20 04:30 05:54 12:06 WBC RBC Hgb Hct MCH MCHC RDW Plt Count Lymph % (Auto) Lymph # (Auto) Seg Neutrophils % Seg Neuts % (Manual) Lymphocytes % (Manual) Eosinophils % (Manual) Nucleated RBC % Seg Neutrophils # Seg Neutrophils # Man Lymphocytes # (Manual) Eosinophils # (Manual) PT INR D-Dimer Heparin Anti-Xa Level ABG pH POC ABG pCO2 POC ABG pO2 ABG pO2 49.0 L ABG HCO3 35.7 H ABG O2 Saturation 87.6 L ABG Base Excess 10.1 H ABG Hemoglobin 11.5 L ABG Oxyhemoglobin ABG Sodium ABG Potassium ABG Chloride ABG Glucose Oxyhemoglobin 85.4 L Carboxyhemoglobin Sodium Potassium Chloride Carbon Dioxide BUN Creatinine Glucose POC Glucose 164 H 149 H Lactic Acid Calcium Ferritin AST ALT Lactate Dehydrogenase C-Reactive Protein Total Protein Albumin Triglycerides Arterial Blood Glucose Arterial Blood Ionized Calcium Urine Creatinine Urine Total Protein Vancomycin Trough Coronavirus (PCR) SARS-CoV-2 IgG Ab 07/27/20 07/27/20 07/27/20 13:00 14:18 14:18 WBC 12.2 H RBC 3.33 L Hgb 10.0 L Hct MCH MCHC RDW Plt Count Lymph % (Auto) Lymph # (Auto) Seg Neutrophils % Seg Neuts % (Manual) 90.0 H Lymphocytes % (Manual) 7.0 L Eosinophils % (Manual) Nucleated RBC % Seg Neutrophils # Seg Neutrophils # Man 11.0 H Lymphocytes # (Manual) 0.9 L Eosinophils # (Manual) PT INR D-Dimer Heparin Anti-Xa Level ABG pH 7.313 L POC ABG pCO2 POC ABG pO2 ABG pO2 107.5 H ABG HCO3 37.6 H ABG O2 Saturation ABG Base Excess 8.1 H ABG Hemoglobin 10.1 L ABG Oxyhemoglobin ABG Sodium ABG Potassium ABG Chloride ABG Glucose Oxyhemoglobin Carboxyhemoglobin Sodium Potassium Chloride 97.6 L Carbon Dioxide 35 H BUN 18 H Creatinine Glucose 135 H POC Glucose Lactic Acid Calcium 8.3 L Ferritin AST ALT Lactate Dehydrogenase C-Reactive Protein Total Protein Albumin Triglycerides Arterial Blood Glucose Arterial Blood Ionized Calcium Urine Creatinine Urine Total Protein Vancomycin Trough Coronavirus (PCR) SARS-CoV-2 IgG Ab 07/27/20 07/27/20 07/28/20 17:09 23:14 04:15 WBC RBC Hgb Hct MCH MCHC RDW Plt Count Lymph % (Auto) Lymph # (Auto) Seg Neutrophils % Seg Neuts % (Manual) Lymphocytes % (Manual) Eosinophils % (Manual) Nucleated RBC % Seg Neutrophils # Seg Neutrophils # Man Lymphocytes # (Manual) Eosinophils # (Manual) PT INR D-Dimer Heparin Anti-Xa Level ABG pH 7.317 L POC ABG pCO2 POC ABG pO2 ABG pO2 130.3 H ABG HCO3 40.9 H ABG O2 Saturation ABG Base Excess 13.5 H ABG Hemoglobin 5.8 L ABG Oxyhemoglobin ABG Sodium ABG Potassium ABG Chloride ABG Glucose Oxyhemoglobin Carboxyhemoglobin Sodium Potassium Chloride Carbon Dioxide BUN Creatinine Glucose POC Glucose 115 H 139 H Lactic Acid Calcium Ferritin AST ALT Lactate Dehydrogenase C-Reactive Protein Total Protein Albumin Triglycerides Arterial Blood Glucose Arterial Blood Ionized Calcium Urine Creatinine Urine Total Protein Vancomycin Trough Coronavirus (PCR) SARS-CoV-2 IgG Ab 07/28/20 07/28/20 07/28/20 05:34 09:20 09:20 WBC RBC 2.89 L Hgb 9.5 L Hct 26.6 L MCH 33 H MCHC 36 H RDW Plt Count 123 L Lymph % (Auto) Lymph # (Auto) Seg Neutrophils % Seg Neuts % (Manual) 89.0 H Lymphocytes % (Manual) 5.0 L Eosinophils % (Manual) Nucleated RBC % Seg Neutrophils # Seg Neutrophils # Man 8.6 H Lymphocytes # (Manual) 0.5 L Eosinophils # (Manual) PT INR D-Dimer Heparin Anti-Xa Level ABG pH POC ABG pCO2 POC ABG pO2 ABG pO2 ABG HCO3 ABG O2 Saturation ABG Base Excess ABG Hemoglobin ABG Oxyhemoglobin ABG Sodium ABG Potassium ABG Chloride ABG Glucose Oxyhemoglobin Carboxyhemoglobin Sodium 134 L Potassium Chloride 95.6 L Carbon Dioxide 39 H BUN Creatinine 0.3 L Glucose 131 H POC Glucose 130 H Lactic Acid Calcium 7.9 L Ferritin AST ALT Lactate Dehydrogenase C-Reactive Protein Total Protein Albumin Triglycerides Arterial Blood Glucose Arterial Blood Ionized Calcium Urine Creatinine Urine Total Protein Vancomycin Trough Coronavirus (PCR) SARS-CoV-2 IgG Ab 07/28/20 07/28/20 07/28/20 11:50 18:36 23:22 WBC RBC Hgb Hct MCH MCHC RDW Plt Count Lymph % (Auto) Lymph # (Auto) Seg Neutrophils % Seg Neuts % (Manual) Lymphocytes % (Manual) Eosinophils % (Manual) Nucleated RBC % Seg Neutrophils # Seg Neutrophils # Man Lymphocytes # (Manual) Eosinophils # (Manual) PT INR D-Dimer Heparin Anti-Xa Level ABG pH POC ABG pCO2 POC ABG pO2 ABG pO2 ABG HCO3 ABG O2 Saturation ABG Base Excess ABG Hemoglobin ABG Oxyhemoglobin ABG Sodium ABG Potassium ABG Chloride ABG Glucose Oxyhemoglobin Carboxyhemoglobin Sodium Potassium Chloride Carbon Dioxide BUN Creatinine Glucose POC Glucose 128 H 119 H 122 H Lactic Acid Calcium Ferritin AST ALT Lactate Dehydrogenase C-Reactive Protein Total Protein Albumin Triglycerides Arterial Blood Glucose Arterial Blood Ionized Calcium Urine Creatinine Urine Total Protein Vancomycin Trough Coronavirus (PCR) SARS-CoV-2 IgG Ab 07/29/20 07/29/20 07/29/20 03:18 07:54 07:54 WBC 11.1 H RBC 3.49 L Hgb Hct MCH MCHC RDW Plt Count 139 L Lymph % (Auto) Lymph # (Auto) Seg Neutrophils % Seg Neuts % (Manual) 90.0 H Lymphocytes % (Manual) 1.0 L Eosinophils % (Manual) 5.0 H Nucleated RBC % Seg Neutrophils # Seg Neutrophils # Man 10.0 H Lymphocytes # (Manual) 0.1 L Eosinophils # (Manual) 0.6 H PT INR D-Dimer Heparin Anti-Xa Level ABG pH POC ABG pCO2 69.5 H POC ABG pO2 109.3 H ABG pO2 ABG HCO3 ABG O2 Saturation ABG Base Excess ABG Hemoglobin 10.8 L ABG Oxyhemoglobin ABG Sodium ABG Potassium ABG Chloride 95.0 L ABG Glucose 138 H Oxyhemoglobin Carboxyhemoglobin Sodium Potassium Chloride 94.5 L Carbon Dioxide 40 H BUN Creatinine 0.5 L D Glucose 104 H POC Glucose Lactic Acid Calcium Ferritin AST ALT Lactate Dehydrogenase C-Reactive Protein Total Protein Albumin Triglycerides Arterial Blood Glucose 138 H Arterial Blood Ionized Calcium Urine Creatinine Urine Total Protein Vancomycin Trough Coronavirus (PCR) SARS-CoV-2 IgG Ab 07/29/20 07/29/20 07/29/20 11:05 18:17 19:41 WBC RBC Hgb Hct MCH MCHC RDW Plt Count Lymph % (Auto) Lymph # (Auto) Seg Neutrophils % Seg Neuts % (Manual) Lymphocytes % (Manual) Eosinophils % (Manual) Nucleated RBC % Seg Neutrophils # Seg Neutrophils # Man Lymphocytes # (Manual) Eosinophils # (Manual) PT INR D-Dimer Heparin Anti-Xa Level ABG pH 7.305 L POC ABG pCO2 73.3 H 66.7 H POC ABG pO2 28.2 L 32.7 L ABG pO2 ABG HCO3 ABG O2 Saturation ABG Base Excess ABG Hemoglobin 11.8 L 11.5 L ABG Oxyhemoglobin ABG Sodium ABG Potassium ABG Chloride 94.0 L 95.0 L ABG Glucose 207 H 141 H Oxyhemoglobin Carboxyhemoglobin Sodium Potassium Chloride Carbon Dioxide BUN Creatinine Glucose POC Glucose 113 H Lactic Acid Calcium Ferritin AST ALT Lactate Dehydrogenase C-Reactive Protein Total Protein Albumin Triglycerides Arterial Blood Glucose 207 H 141 H Arterial Blood Ionized Calcium 4.5 L Urine Creatinine Urine Total Protein Vancomycin Trough Coronavirus (PCR) SARS-CoV-2 IgG Ab 07/29/20 07/30/20 07/30/20 23:28 04:47 05:28 WBC RBC Hgb Hct MCH MCHC RDW Plt Count Lymph % (Auto) Lymph # (Auto) Seg Neutrophils % Seg Neuts % (Manual) Lymphocytes % (Manual) Eosinophils % (Manual) Nucleated RBC % Seg Neutrophils # Seg Neutrophils # Man Lymphocytes # (Manual) Eosinophils # (Manual) PT INR D-Dimer Heparin Anti-Xa Level ABG pH POC ABG pCO2 55.1 H POC ABG pO2 43.6 L ABG pO2 ABG HCO3 ABG O2 Saturation ABG Base Excess ABG Hemoglobin 11.9 L ABG Oxyhemoglobin ABG Sodium ABG Potassium ABG Chloride 96.0 L ABG Glucose 150 H Oxyhemoglobin Carboxyhemoglobin Sodium Potassium Chloride Carbon Dioxide BUN Creatinine Glucose POC Glucose 121 H 143 H Lactic Acid Calcium Ferritin AST ALT Lactate Dehydrogenase C-Reactive Protein Total Protein Albumin Triglycerides Arterial Blood Glucose 150 H Arterial Blood Ionized Calcium Urine Creatinine Urine Total Protein Vancomycin Trough Coronavirus (PCR) SARS-CoV-2 IgG Ab 07/30/20 07/30/20 07/30/20 08:18 12:00 14:17 WBC RBC Hgb Hct MCH MCHC RDW Plt Count Lymph % (Auto) Lymph # (Auto) Seg Neutrophils % Seg Neuts % (Manual) Lymphocytes % (Manual) Eosinophils % (Manual) Nucleated RBC % Seg Neutrophils # Seg Neutrophils # Man Lymphocytes # (Manual) Eosinophils # (Manual) PT INR D-Dimer Heparin Anti-Xa Level ABG pH POC ABG pCO2 63.3 H 64.6 H POC ABG pO2 47.9 L 41.0 L ABG pO2 ABG HCO3 ABG O2 Saturation ABG Base Excess ABG Hemoglobin 10.5 L 10.2 L ABG Oxyhemoglobin 84.9 L ABG Sodium ABG Potassium ABG Chloride 97.0 L ABG Glucose 170 H 175 H Oxyhemoglobin Carboxyhemoglobin Sodium Potassium Chloride Carbon Dioxide BUN Creatinine Glucose POC Glucose 161 H Lactic Acid Calcium Ferritin AST ALT Lactate Dehydrogenase C-Reactive Protein Total Protein Albumin Triglycerides Arterial Blood Glucose 170 H 175 H Arterial Blood Ionized Calcium 4.4 L 4.4 L Urine Creatinine Urine Total Protein Vancomycin Trough Coronavirus (PCR) SARS-CoV-2 IgG Ab 07/30/20 07/30/20 07/30/20 15:15 15:15 15:15 WBC RBC 2.80 L Hgb 9.1 L Hct 26.0 L D MCH MCHC 35 H RDW Plt Count 101 L Lymph % (Auto) Lymph # (Auto) Seg Neutrophils % Seg Neuts % (Manual) 90.0 H Lymphocytes % (Manual) 7.0 L Eosinophils % (Manual) Nucleated RBC % Seg Neutrophils # Seg Neutrophils # Man Lymphocytes # (Manual) 0.4 L Eosinophils # (Manual) PT INR D-Dimer Heparin Anti-Xa Level ABG pH POC ABG pCO2 POC ABG pO2 ABG pO2 ABG HCO3 ABG O2 Saturation ABG Base Excess ABG Hemoglobin ABG Oxyhemoglobin ABG Sodium ABG Potassium ABG Chloride ABG Glucose Oxyhemoglobin Carboxyhemoglobin Sodium Potassium Chloride 97.1 L Carbon Dioxide 32 H D BUN 39 H Creatinine 1.3 H D Glucose 167 H POC Glucose Lactic Acid Calcium 8.0 L Ferritin AST ALT Lactate Dehydrogenase C-Reactive Protein Total Protein Albumin Triglycerides 837 H Arterial Blood Glucose Arterial Blood Ionized Calcium Urine Creatinine Urine Total Protein Vancomycin Trough Coronavirus (PCR) SARS-CoV-2 IgG Ab 07/30/20 07/30/20 07/30/20 15:15 17:03 17:43 WBC RBC Hgb Hct MCH MCHC RDW Plt Count Lymph % (Auto) Lymph # (Auto) Seg Neutrophils % Seg Neuts % (Manual) Lymphocytes % (Manual) Eosinophils % (Manual) Nucleated RBC % Seg Neutrophils # Seg Neutrophils # Man Lymphocytes # (Manual) Eosinophils # (Manual) PT INR D-Dimer Heparin Anti-Xa Level ABG pH POC ABG pCO2 POC ABG pO2 ABG pO2 ABG HCO3 ABG O2 Saturation ABG Base Excess ABG Hemoglobin ABG Oxyhemoglobin ABG Sodium ABG Potassium ABG Chloride ABG Glucose Oxyhemoglobin Carboxyhemoglobin Sodium Potassium Chloride Carbon Dioxide BUN Creatinine Glucose POC Glucose 171 H Lactic Acid 2.20 H* 3.60 H* Calcium Ferritin AST ALT Lactate Dehydrogenase C-Reactive Protein Total Protein Albumin Triglycerides Arterial Blood Glucose Arterial Blood Ionized Calcium Urine Creatinine Urine Total Protein Vancomycin Trough Coronavirus (PCR) SARS-CoV-2 IgG Ab 07/30/20 07/30/20 07/31/20 20:13 23:37 04:15 WBC RBC Hgb Hct MCH MCHC RDW Plt Count Lymph % (Auto) Lymph # (Auto) Seg Neutrophils % Seg Neuts % (Manual) Lymphocytes % (Manual) Eosinophils % (Manual) Nucleated RBC % Seg Neutrophils # Seg Neutrophils # Man Lymphocytes # (Manual) Eosinophils # (Manual) PT INR D-Dimer Heparin Anti-Xa Level ABG pH 7.544 H 7.489 H POC ABG pCO2 POC ABG pO2 44.4 L 50.0 L ABG pO2 ABG HCO3 ABG O2 Saturation ABG Base Excess ABG Hemoglobin 10.4 L ABG Oxyhemoglobin ABG Sodium 135.3 L ABG Potassium ABG Chloride ABG Glucose 201 H 199 H Oxyhemoglobin Carboxyhemoglobin Sodium Potassium Chloride Carbon Dioxide BUN Creatinine Glucose POC Glucose 160 H Lactic Acid Calcium Ferritin AST ALT Lactate Dehydrogenase C-Reactive Protein Total Protein Albumin Triglycerides Arterial Blood Glucose 201 H 199 H Arterial Blood Ionized Calcium 4.2 L 4.4 L Urine Creatinine Urine Total Protein Vancomycin Trough Coronavirus (PCR) SARS-CoV-2 IgG Ab 07/31/20 07/31/20 07/31/20 05:16 05:16 05:28 WBC RBC 3.03 L Hgb 9.2 L Hct 27.6 L MCH MCHC RDW Plt Count 118 L Lymph % (Auto) 6.3 L Lymph # (Auto) 0.5 L Seg Neutrophils % Seg Neuts % (Manual) Lymphocytes % (Manual) Eosinophils % (Manual) Nucleated RBC % Seg Neutrophils # Seg Neutrophils # Man Lymphocytes # (Manual) Eosinophils # (Manual) PT INR D-Dimer Heparin Anti-Xa Level ABG pH POC ABG pCO2 POC ABG pO2 ABG pO2 ABG HCO3 ABG O2 Saturation ABG Base Excess ABG Hemoglobin ABG Oxyhemoglobin ABG Sodium ABG Potassium ABG Chloride ABG Glucose Oxyhemoglobin Carboxyhemoglobin Sodium Potassium Chloride Carbon Dioxide BUN 57 H Creatinine 1.7 H Glucose 208 H POC Glucose 182 H Lactic Acid Calcium 8.3 L Ferritin AST 613 H ALT 760 H Lactate Dehydrogenase C-Reactive Protein Total Protein 5.6 L Albumin 2.2 L Triglycerides Arterial Blood Glucose Arterial Blood Ionized Calcium Urine Creatinine Urine Total Protein Vancomycin Trough Coronavirus (PCR) SARS-CoV-2 IgG Ab 07/31/20 07/31/20 07/31/20 11:02 14:14 14:14 WBC RBC Hgb Hct MCH MCHC RDW Plt Count Lymph % (Auto) Lymph # (Auto) Seg Neutrophils % Seg Neuts % (Manual) Lymphocytes % (Manual) Eosinophils % (Manual) Nucleated RBC % Seg Neutrophils # Seg Neutrophils # Man Lymphocytes # (Manual) Eosinophils # (Manual) PT INR D-Dimer 2522.40 H Heparin Anti-Xa Level ABG pH POC ABG pCO2 POC ABG pO2 ABG pO2 ABG HCO3 ABG O2 Saturation ABG Base Excess ABG Hemoglobin ABG Oxyhemoglobin ABG Sodium ABG Potassium ABG Chloride ABG Glucose Oxyhemoglobin Carboxyhemoglobin Sodium Potassium Chloride Carbon Dioxide BUN Creatinine Glucose POC Glucose 200 H Lactic Acid Calcium Ferritin 964.8 H AST ALT Lactate Dehydrogenase C-Reactive Protein Total Protein Albumin Triglycerides Arterial Blood Glucose Arterial Blood Ionized Calcium Urine Creatinine Urine Total Protein Vancomycin Trough Coronavirus (PCR) SARS-CoV-2 IgG Ab 07/31/20 07/31/20 07/31/20 14:14 14:14 16:00 WBC RBC Hgb Hct MCH MCHC RDW Plt Count Lymph % (Auto) Lymph # (Auto) Seg Neutrophils % Seg Neuts % (Manual) Lymphocytes % (Manual) Eosinophils % (Manual) Nucleated RBC % Seg Neutrophils # Seg Neutrophils # Man Lymphocytes # (Manual) Eosinophils # (Manual) PT INR D-Dimer Heparin Anti-Xa Level ABG pH POC ABG pCO2 POC ABG pO2 ABG pO2 ABG HCO3 ABG O2 Saturation ABG Base Excess ABG Hemoglobin ABG Oxyhemoglobin ABG Sodium ABG Potassium ABG Chloride ABG Glucose Oxyhemoglobin Carboxyhemoglobin Sodium Potassium Chloride Carbon Dioxide BUN Creatinine Glucose POC Glucose Lactic Acid Calcium Ferritin AST ALT Lactate Dehydrogenase 585 H C-Reactive Protein 49.00 H Total Protein Albumin Triglycerides Arterial Blood Glucose Arterial Blood Ionized Calcium Urine Creatinine 89.2 H Urine Total Protein 108 H Vancomycin Trough 28.2 H Coronavirus (PCR) SARS-CoV-2 IgG Ab 07/31/20 07/31/20 08/01/20 17:22 21:26 00:07 WBC RBC Hgb Hct MCH MCHC RDW Plt Count Lymph % (Auto) Lymph # (Auto) Seg Neutrophils % Seg Neuts % (Manual) Lymphocytes % (Manual) Eosinophils % (Manual) Nucleated RBC % Seg Neutrophils # Seg Neutrophils # Man Lymphocytes # (Manual) Eosinophils # (Manual) PT INR D-Dimer Heparin Anti-Xa Level ABG pH POC ABG pCO2 POC ABG pO2 156.0 H ABG pO2 ABG HCO3 ABG O2 Saturation ABG Base Excess ABG Hemoglobin 9.6 L ABG Oxyhemoglobin 98.4 H ABG Sodium 135.9 L ABG Potassium ABG Chloride ABG Glucose 290 H Oxyhemoglobin Carboxyhemoglobin 0.4 L Sodium Potassium Chloride Carbon Dioxide BUN Creatinine Glucose POC Glucose 229 H 255 H Lactic Acid Calcium Ferritin AST ALT Lactate Dehydrogenase C-Reactive Protein Total Protein Albumin Triglycerides Arterial Blood Glucose 290 H Arterial Blood Ionized Calcium 4.5 L Urine Creatinine Urine Total Protein Vancomycin Trough Coronavirus (PCR) SARS-CoV-2 IgG Ab 08/01/20 08/01/20 08/01/20 04:46 05:30 05:30 WBC RBC 2.27 L Hgb 7.6 L Hct 20.9 L D MCH 34 H MCHC 37 H RDW Plt Count 85 L Lymph % (Auto) Lymph # (Auto) Seg Neutrophils % Seg Neuts % (Manual) 87.0 H Lymphocytes % (Manual) 2.0 L Eosinophils % (Manual) Nucleated RBC % 1.0 H Seg Neutrophils # Seg Neutrophils # Man Lymphocytes # (Manual) 0.1 L Eosinophils # (Manual) PT INR D-Dimer Heparin Anti-Xa Level ABG pH 7.462 H POC ABG pCO2 POC ABG pO2 70.2 L ABG pO2 ABG HCO3 ABG O2 Saturation ABG Base Excess ABG Hemoglobin 8.7 L ABG Oxyhemoglobin ABG Sodium 135.7 L ABG Potassium 3.3 L ABG Chloride ABG Glucose 275 H Oxyhemoglobin Carboxyhemoglobin Sodium 132 L D Potassium 2.8 L* D Chloride Carbon Dioxide BUN 47 H Creatinine Glucose 217 H POC Glucose Lactic Acid Calcium 6.6 L D Ferritin AST 117 H ALT 408 H Lactate Dehydrogenase C-Reactive Protein Total Protein 4.3 L D Albumin 0.6 L Triglycerides 2335 H Arterial Blood Glucose 275 H Arterial Blood Ionized Calcium 4.5 L Urine Creatinine Urine Total Protein Vancomycin Trough Coronavirus (PCR) SARS-CoV-2 IgG Ab 08/01/20 08/01/20 08/01/20 05:34 09:33 11:50 WBC RBC Hgb Hct MCH MCHC RDW Plt Count Lymph % (Auto) Lymph # (Auto) Seg Neutrophils % Seg Neuts % (Manual) Lymphocytes % (Manual) Eosinophils % (Manual) Nucleated RBC % Seg Neutrophils # Seg Neutrophils # Man Lymphocytes # (Manual) Eosinophils # (Manual) PT INR D-Dimer Heparin Anti-Xa Level ABG pH POC ABG pCO2 POC ABG pO2 ABG pO2 ABG HCO3 ABG O2 Saturation ABG Base Excess ABG Hemoglobin ABG Oxyhemoglobin ABG Sodium ABG Potassium ABG Chloride ABG Glucose Oxyhemoglobin Carboxyhemoglobin Sodium Potassium Chloride Carbon Dioxide BUN 57 H Creatinine Glucose 250 H POC Glucose 246 H 239 H Lactic Acid Calcium 8.2 L D Ferritin AST ALT Lactate Dehydrogenase C-Reactive Protein Total Protein Albumin Triglycerides 759 H Arterial Blood Glucose Arterial Blood Ionized Calcium Urine Creatinine Urine Total Protein Vancomycin Trough Coronavirus (PCR) SARS-CoV-2 IgG Ab 08/01/20 08/01/20 08/02/20 17:14 23:21 04:22 WBC RBC Hgb Hct MCH MCHC RDW Plt Count Lymph % (Auto) Lymph # (Auto) Seg Neutrophils % Seg Neuts % (Manual) Lymphocytes % (Manual) Eosinophils % (Manual) Nucleated RBC % Seg Neutrophils # Seg Neutrophils # Man Lymphocytes # (Manual) Eosinophils # (Manual) PT INR D-Dimer Heparin Anti-Xa Level ABG pH 7.268 L POC ABG pCO2 56.6 H POC ABG pO2 ABG pO2 ABG HCO3 ABG O2 Saturation ABG Base Excess ABG Hemoglobin 8.4 L ABG Oxyhemoglobin ABG Sodium ABG Potassium 4.9 H ABG Chloride ABG Glucose 261 H Oxyhemoglobin Carboxyhemoglobin Sodium Potassium Chloride Carbon Dioxide BUN Creatinine Glucose POC Glucose 219 H 242 H Lactic Acid Calcium Ferritin AST ALT Lactate Dehydrogenase C-Reactive Protein Total Protein Albumin Triglycerides Arterial Blood Glucose 261 H Arterial Blood Ionized Calcium Urine Creatinine Urine Total Protein Vancomycin Trough Coronavirus (PCR) SARS-CoV-2 IgG Ab 08/02/20 08/02/20 08/02/20 05:05 06:37 06:37 WBC RBC 3.40 L Hgb 10.0 L Hct MCH MCHC RDW 16.2 H Plt Count 87 L Lymph % (Auto) Lymph # (Auto) Seg Neutrophils % Seg Neuts % (Manual) 82.0 H Lymphocytes % (Manual) 3.0 L Eosinophils % (Manual) Nucleated RBC % 2.0 H Seg Neutrophils # Seg Neutrophils # Man 9.0 H Lymphocytes # (Manual) 0.3 L Eosinophils # (Manual) PT INR D-Dimer Heparin Anti-Xa Level ABG pH POC ABG pCO2 POC ABG pO2 ABG pO2 ABG HCO3 ABG O2 Saturation ABG Base Excess ABG Hemoglobin ABG Oxyhemoglobin ABG Sodium ABG Potassium ABG Chloride ABG Glucose Oxyhemoglobin Carboxyhemoglobin Sodium Potassium 5.3 H D Chloride Carbon Dioxide BUN 53 H Creatinine Glucose 267 H POC Glucose 254 H Lactic Acid Calcium 8.1 L Ferritin AST 43 H ALT 334 H Lactate Dehydrogenase C-Reactive Protein Total Protein 5.4 L D Albumin 1.9 L Triglycerides Arterial Blood Glucose Arterial Blood Ionized Calcium Urine Creatinine Urine Total Protein Vancomycin Trough Coronavirus (PCR) SARS-CoV-2 IgG Ab 08/02/20 08/02/20 08/02/20 06:37 11:34 17:04 WBC RBC Hgb Hct MCH MCHC RDW Plt Count Lymph % (Auto) Lymph # (Auto) Seg Neutrophils % Seg Neuts % (Manual) Lymphocytes % (Manual) Eosinophils % (Manual) Nucleated RBC % Seg Neutrophils # Seg Neutrophils # Man Lymphocytes # (Manual) Eosinophils # (Manual) PT INR D-Dimer Heparin Anti-Xa Level ABG pH POC ABG pCO2 POC ABG pO2 ABG pO2 ABG HCO3 ABG O2 Saturation ABG Base Excess ABG Hemoglobin ABG Oxyhemoglobin ABG Sodium ABG Potassium ABG Chloride ABG Glucose Oxyhemoglobin Carboxyhemoglobin Sodium Potassium Chloride Carbon Dioxide BUN Creatinine Glucose POC Glucose 279 H 256 H Lactic Acid Calcium Ferritin AST ALT Lactate Dehydrogenase C-Reactive Protein Total Protein Albumin Triglycerides 717 H Arterial Blood Glucose Arterial Blood Ionized Calcium Urine Creatinine Urine Total Protein Vancomycin Trough Coronavirus (PCR) SARS-CoV-2 IgG Ab 08/02/20 08/03/20 08/03/20 23:23 01:25 04:49 WBC 13.2 H RBC 2.83 L Hgb 8.4 L Hct 26.3 L MCH MCHC RDW 16.4 H Plt Count Lymph % (Auto) Lymph # (Auto) Seg Neutrophils % Seg Neuts % (Manual) Lymphocytes % (Manual) 2.0 L Eosinophils % (Manual) Nucleated RBC % 1.0 H Seg Neutrophils # Seg Neutrophils # Man 7.8 H Lymphocytes # (Manual) 0.3 L Eosinophils # (Manual) PT INR D-Dimer Heparin Anti-Xa Level ABG pH 7.302 L POC ABG pCO2 56.0 H POC ABG pO2 39.6 L ABG pO2 ABG HCO3 ABG O2 Saturation ABG Base Excess ABG Hemoglobin 9.1 L ABG Oxyhemoglobin ABG Sodium ABG Potassium 4.8 H ABG Chloride 108.0 H ABG Glucose 275 H Oxyhemoglobin Carboxyhemoglobin Sodium Potassium Chloride Carbon Dioxide BUN Creatinine Glucose POC Glucose 214 H Lactic Acid Calcium Ferritin AST ALT Lactate Dehydrogenase C-Reactive Protein Total Protein Albumin Triglycerides Arterial Blood Glucose 275 H Arterial Blood Ionized Calcium Urine Creatinine Urine Total Protein Vancomycin Trough Coronavirus (PCR) SARS-CoV-2 IgG Ab 08/03/20 08/03/20 08/03/20 04:49 04:49 05:11 WBC RBC Hgb Hct MCH MCHC RDW Plt Count Lymph % (Auto) Lymph # (Auto) Seg Neutrophils % Seg Neuts % (Manual) Lymphocytes % (Manual) Eosinophils % (Manual) Nucleated RBC % Seg Neutrophils # Seg Neutrophils # Man Lymphocytes # (Manual) Eosinophils # (Manual) PT INR D-Dimer Heparin Anti-Xa Level ABG pH POC ABG pCO2 POC ABG pO2 ABG pO2 ABG HCO3 ABG O2 Saturation ABG Base Excess ABG Hemoglobin ABG Oxyhemoglobin ABG Sodium ABG Potassium ABG Chloride ABG Glucose Oxyhemoglobin Carboxyhemoglobin Sodium Potassium Chloride Carbon Dioxide BUN 39 H Creatinine Glucose 263 H POC Glucose 230 H Lactic Acid Calcium 8.1 L Ferritin AST ALT 242 H Lactate Dehydrogenase C-Reactive Protein Total Protein 5.4 L Albumin 2.2 L Triglycerides 500 H Arterial Blood Glucose Arterial Blood Ionized Calcium Urine Creatinine Urine Total Protein Vancomycin Trough Coronavirus (PCR) SARS-CoV-2 IgG Ab 08/03/20 08/03/20 08/03/20 11:55 17:07 23:25 WBC RBC Hgb Hct MCH MCHC RDW Plt Count Lymph % (Auto) Lymph # (Auto) Seg Neutrophils % Seg Neuts % (Manual) Lymphocytes % (Manual) Eosinophils % (Manual) Nucleated RBC % Seg Neutrophils # Seg Neutrophils # Man Lymphocytes # (Manual) Eosinophils # (Manual) PT INR D-Dimer Heparin Anti-Xa Level ABG pH POC ABG pCO2 POC ABG pO2 ABG pO2 ABG HCO3 ABG O2 Saturation ABG Base Excess ABG Hemoglobin ABG Oxyhemoglobin ABG Sodium ABG Potassium ABG Chloride ABG Glucose Oxyhemoglobin Carboxyhemoglobin Sodium Potassium Chloride Carbon Dioxide BUN Creatinine Glucose POC Glucose 238 H 205 H 211 H Lactic Acid Calcium Ferritin AST ALT Lactate Dehydrogenase C-Reactive Protein Total Protein Albumin Triglycerides Arterial Blood Glucose Arterial Blood Ionized Calcium Urine Creatinine Urine Total Protein Vancomycin Trough Coronavirus (PCR) SARS-CoV-2 IgG Ab 08/04/20 08/04/20 08/04/20 03:16 05:31 12:07 WBC RBC Hgb Hct MCH MCHC RDW Plt Count Lymph % (Auto) Lymph # (Auto) Seg Neutrophils % Seg Neuts % (Manual) Lymphocytes % (Manual) Eosinophils % (Manual) Nucleated RBC % Seg Neutrophils # Seg Neutrophils # Man Lymphocytes # (Manual) Eosinophils # (Manual) PT INR D-Dimer Heparin Anti-Xa Level ABG pH 7.154 L POC ABG pCO2 80.7 H POC ABG pO2 ABG pO2 ABG HCO3 ABG O2 Saturation ABG Base Excess ABG Hemoglobin 8.5 L ABG Oxyhemoglobin ABG Sodium ABG Potassium 5.1 H ABG Chloride 109.0 H ABG Glucose 226 H Oxyhemoglobin Carboxyhemoglobin Sodium Potassium Chloride Carbon Dioxide BUN Creatinine Glucose POC Glucose 201 H 213 H Lactic Acid Calcium Ferritin AST ALT Lactate Dehydrogenase C-Reactive Protein Total Protein Albumin Triglycerides Arterial Blood Glucose 226 H Arterial Blood Ionized Calcium Urine Creatinine Urine Total Protein Vancomycin Trough Coronavirus (PCR) SARS-CoV-2 IgG Ab 08/04/20 08/04/20 08/04/20 17:39 23:17 Unknown WBC RBC 2.38 L Hgb 7.1 L Hct 22.4 L MCH MCHC RDW 16.5 H Plt Count Lymph % (Auto) Lymph # (Auto) Seg Neutrophils % Seg Neuts % (Manual) Lymphocytes % (Manual) 1.0 L Eosinophils % (Manual) Nucleated RBC % Seg Neutrophils # Seg Neutrophils # Man Lymphocytes # (Manual) 0.1 L Eosinophils # (Manual) PT INR D-Dimer Heparin Anti-Xa Level ABG pH POC ABG pCO2 POC ABG pO2 ABG pO2 ABG HCO3 ABG O2 Saturation ABG Base Excess ABG Hemoglobin ABG Oxyhemoglobin ABG Sodium ABG Potassium ABG Chloride ABG Glucose Oxyhemoglobin Carboxyhemoglobin Sodium Potassium Chloride Carbon Dioxide BUN Creatinine Glucose POC Glucose 155 H 107 H Lactic Acid Calcium Ferritin AST ALT Lactate Dehydrogenase C-Reactive Protein Total Protein Albumin Triglycerides Arterial Blood Glucose Arterial Blood Ionized Calcium Urine Creatinine Urine Total Protein Vancomycin Trough Coronavirus (PCR) SARS-CoV-2 IgG Ab 08/04/20 08/05/20 08/05/20 Unknown 05:14 05:50 WBC RBC Hgb Hct MCH MCHC RDW Plt Count Lymph % (Auto) Lymph # (Auto) Seg Neutrophils % Seg Neuts % (Manual) Lymphocytes % (Manual) Eosinophils % (Manual) Nucleated RBC % Seg Neutrophils # Seg Neutrophils # Man Lymphocytes # (Manual) Eosinophils # (Manual) PT INR D-Dimer Heparin Anti-Xa Level ABG pH POC ABG pCO2 51.7 H POC ABG pO2 63.3 L ABG pO2 ABG HCO3 ABG O2 Saturation ABG Base Excess ABG Hemoglobin 9.9 L ABG Oxyhemoglobin ABG Sodium 146.9 H ABG Potassium ABG Chloride 113.0 H ABG Glucose 112 H Oxyhemoglobin Carboxyhemoglobin Sodium Potassium Chloride 113.1 H Carbon Dioxide BUN 27 H Creatinine 0.5 L Glucose 190 H POC Glucose 126 H Lactic Acid Calcium 7.5 L Ferritin AST ALT 134 H Lactate Dehydrogenase C-Reactive Protein Total Protein 4.7 L Albumin 2.2 L Triglycerides Arterial Blood Glucose 112 H Arterial Blood Ionized Calcium Urine Creatinine Urine Total Protein Vancomycin Trough Coronavirus (PCR) SARS-CoV-2 IgG Ab 08/05/20 08/05/20 08/05/20 08:30 08:30 11:19 WBC 16.5 H RBC 2.79 L Hgb 8.3 L Hct 26.1 L MCH MCHC RDW 16.7 H Plt Count Lymph % (Auto) Lymph # (Auto) Seg Neutrophils % Seg Neuts % (Manual) Lymphocytes % (Manual) 6.0 L Eosinophils % (Manual) Nucleated RBC % Seg Neutrophils # Seg Neutrophils # Man 10.1 H Lymphocytes # (Manual) 1.0 L Eosinophils # (Manual) PT INR D-Dimer Heparin Anti-Xa Level ABG pH POC ABG pCO2 POC ABG pO2 ABG pO2 ABG HCO3 ABG O2 Saturation ABG Base Excess ABG Hemoglobin ABG Oxyhemoglobin ABG Sodium ABG Potassium ABG Chloride ABG Glucose Oxyhemoglobin Carboxyhemoglobin Sodium 149 H Potassium Chloride 112.9 H Carbon Dioxide 32 H D BUN 25 H Creatinine Glucose 184 H POC Glucose 185 H Lactic Acid Calcium Ferritin AST ALT 115 H Lactate Dehydrogenase C-Reactive Protein Total Protein 5.5 L Albumin 2.3 L Triglycerides Arterial Blood Glucose Arterial Blood Ionized Calcium Urine Creatinine Urine Total Protein Vancomycin Trough Coronavirus (PCR) SARS-CoV-2 IgG Ab 08/05/20 08/05/20 08/05/20 13:35 13:35 13:35 WBC RBC Hgb 7.7 L Hct 24.6 L MCH MCHC RDW Plt Count Lymph % (Auto) Lymph # (Auto) Seg Neutrophils % Seg Neuts % (Manual) Lymphocytes % (Manual) Eosinophils % (Manual) Nucleated RBC % Seg Neutrophils # Seg Neutrophils # Man Lymphocytes # (Manual) Eosinophils # (Manual) PT 15.4 H INR 1.22 H D-Dimer 4748.32 H Heparin Anti-Xa Level ABG pH POC ABG pCO2 POC ABG pO2 ABG pO2 ABG HCO3 ABG O2 Saturation ABG Base Excess ABG Hemoglobin ABG Oxyhemoglobin ABG Sodium ABG Potassium ABG Chloride ABG Glucose Oxyhemoglobin Carboxyhemoglobin Sodium Potassium Chloride Carbon Dioxide BUN Creatinine Glucose POC Glucose Lactic Acid Calcium Ferritin AST ALT Lactate Dehydrogenase C-Reactive Protein 26.40 H Total Protein Albumin Triglycerides 337 H Arterial Blood Glucose Arterial Blood Ionized Calcium Urine Creatinine Urine Total Protein Vancomycin Trough Coronavirus (PCR) SARS-CoV-2 IgG Ab 08/05/20 08/05/20 08/05/20 16:56 20:07 23:29 WBC RBC Hgb Hct MCH MCHC RDW Plt Count Lymph % (Auto) Lymph # (Auto) Seg Neutrophils % Seg Neuts % (Manual) Lymphocytes % (Manual) Eosinophils % (Manual) Nucleated RBC % Seg Neutrophils # Seg Neutrophils # Man Lymphocytes # (Manual) Eosinophils # (Manual) PT INR D-Dimer Heparin Anti-Xa Level ABG pH POC ABG pCO2 POC ABG pO2 ABG pO2 ABG HCO3 ABG O2 Saturation ABG Base Excess ABG Hemoglobin ABG Oxyhemoglobin ABG Sodium ABG Potassium ABG Chloride ABG Glucose Oxyhemoglobin Carboxyhemoglobin Sodium Potassium Chloride Carbon Dioxide BUN Creatinine Glucose POC Glucose 120 H 156 H Lactic Acid Calcium Ferritin AST ALT Lactate Dehydrogenase C-Reactive Protein Total Protein Albumin Triglycerides Arterial Blood Glucose Arterial Blood Ionized Calcium Urine Creatinine Urine Total Protein Vancomycin Trough 27.0 H Coronavirus (PCR) SARS-CoV-2 IgG Ab 08/06/20 08/06/20 08/06/20 04:00 04:00 05:32 WBC 12.6 H RBC 2.40 L Hgb 7.2 L Hct 22.4 L MCH MCHC RDW 16.9 H Plt Count Lymph % (Auto) Lymph # (Auto) Seg Neutrophils % Seg Neuts % (Manual) 86.0 H Lymphocytes % (Manual) 5.0 L Eosinophils % (Manual) Nucleated RBC % Seg Neutrophils # Seg Neutrophils # Man 10.8 H Lymphocytes # (Manual) 0.6 L Eosinophils # (Manual) PT INR D-Dimer Heparin Anti-Xa Level ABG pH POC ABG pCO2 POC ABG pO2 ABG pO2 ABG HCO3 ABG O2 Saturation ABG Base Excess ABG Hemoglobin ABG Oxyhemoglobin ABG Sodium ABG Potassium ABG Chloride ABG Glucose Oxyhemoglobin Carboxyhemoglobin Sodium 147 H Potassium Chloride 112.5 H Carbon Dioxide BUN 27 H Creatinine Glucose 193 H POC Glucose 155 H Lactic Acid Calcium 8.3 L Ferritin AST ALT 77 H Lactate Dehydrogenase C-Reactive Protein Total Protein 5.0 L Albumin 2.2 L Triglycerides Arterial Blood Glucose Arterial Blood Ionized Calcium Urine Creatinine Urine Total Protein Vancomycin Trough Coronavirus (PCR) SARS-CoV-2 IgG Ab 08/06/20 08/06/20 08/06/20 09:31 11:55 17:44 WBC RBC Hgb Hct MCH MCHC RDW Plt Count Lymph % (Auto) Lymph # (Auto) Seg Neutrophils % Seg Neuts % (Manual) Lymphocytes % (Manual) Eosinophils % (Manual) Nucleated RBC % Seg Neutrophils # Seg Neutrophils # Man Lymphocytes # (Manual) Eosinophils # (Manual) PT INR D-Dimer Heparin Anti-Xa Level ABG pH POC ABG pCO2 POC ABG pO2 ABG pO2 ABG HCO3 ABG O2 Saturation ABG Base Excess ABG Hemoglobin ABG Oxyhemoglobin ABG Sodium ABG Potassium ABG Chloride ABG Glucose Oxyhemoglobin Carboxyhemoglobin Sodium Potassium Chloride Carbon Dioxide BUN Creatinine Glucose POC Glucose 140 H 151 H 132 H Lactic Acid Calcium Ferritin AST ALT Lactate Dehydrogenase C-Reactive Protein Total Protein Albumin Triglycerides Arterial Blood Glucose Arterial Blood Ionized Calcium Urine Creatinine Urine Total Protein Vancomycin Trough Coronavirus (PCR) SARS-CoV-2 IgG Ab 08/06/20 08/06/20 08/06/20 21:11 23:21 Unknown WBC RBC Hgb Hct MCH MCHC RDW Plt Count Lymph % (Auto) Lymph # (Auto) Seg Neutrophils % Seg Neuts % (Manual) Lymphocytes % (Manual) Eosinophils % (Manual) Nucleated RBC % Seg Neutrophils # Seg Neutrophils # Man Lymphocytes # (Manual) Eosinophils # (Manual) PT INR D-Dimer Heparin Anti-Xa Level ABG pH POC ABG pCO2 49.3 H 50.5 H POC ABG pO2 62.1 L 70.5 L ABG pO2 ABG HCO3 ABG O2 Saturation ABG Base Excess ABG Hemoglobin 8.6 L 8.3 L ABG Oxyhemoglobin 90.2 L ABG Sodium ABG Potassium ABG Chloride 111.0 H 113.0 H ABG Glucose 171 H 204 H Oxyhemoglobin Carboxyhemoglobin 1.7 H Sodium Potassium Chloride Carbon Dioxide BUN Creatinine Glucose POC Glucose 160 H Lactic Acid Calcium Ferritin AST ALT Lactate Dehydrogenase C-Reactive Protein Total Protein Albumin Triglycerides Arterial Blood Glucose 171 H 204 H Arterial Blood Ionized Calcium Urine Creatinine Urine Total Protein Vancomycin Trough Coronavirus (PCR) SARS-CoV-2 IgG Ab 08/07/20 08/07/20 08/07/20 02:06 02:06 04:00 WBC 18.0 H RBC 2.91 L Hgb 8.5 L Hct 27.2 L MCH MCHC RDW 17.7 H Plt Count Lymph % (Auto) 5.3 L Lymph # (Auto) 1.0 L Seg Neutrophils % Seg Neuts % (Manual) Lymphocytes % (Manual) Eosinophils % (Manual) Nucleated RBC % Seg Neutrophils # 16.6 H Seg Neutrophils # Man Lymphocytes # (Manual) Eosinophils # (Manual) PT INR D-Dimer Heparin Anti-Xa Level ABG pH POC ABG pCO2 POC ABG pO2 ABG pO2 111.4 H ABG HCO3 27.6 H ABG O2 Saturation ABG Base Excess ABG Hemoglobin 8.5 L ABG Oxyhemoglobin ABG Sodium ABG Potassium ABG Chloride ABG Glucose Oxyhemoglobin Carboxyhemoglobin Sodium 146 H Potassium Chloride 110.9 H Carbon Dioxide BUN 27 H Creatinine 0.5 L Glucose 187 H POC Glucose Lactic Acid Calcium Ferritin AST ALT Lactate Dehydrogenase C-Reactive Protein Total Protein Albumin Triglycerides Arterial Blood Glucose Arterial Blood Ionized Calcium Urine Creatinine Urine Total Protein Vancomycin Trough Coronavirus (PCR) SARS-CoV-2 IgG Ab 08/07/20 08/07/20 08/07/20 05:28 11:15 12:09 WBC RBC Hgb Hct MCH MCHC RDW Plt Count Lymph % (Auto) Lymph # (Auto) Seg Neutrophils % Seg Neuts % (Manual) Lymphocytes % (Manual) Eosinophils % (Manual) Nucleated RBC % Seg Neutrophils # Seg Neutrophils # Man Lymphocytes # (Manual) Eosinophils # (Manual) PT INR D-Dimer Heparin Anti-Xa Level 0.15 L ABG pH POC ABG pCO2 POC ABG pO2 ABG pO2 ABG HCO3 ABG O2 Saturation ABG Base Excess ABG Hemoglobin ABG Oxyhemoglobin ABG Sodium ABG Potassium ABG Chloride ABG Glucose Oxyhemoglobin Carboxyhemoglobin Sodium Potassium Chloride Carbon Dioxide BUN Creatinine Glucose POC Glucose 161 H 191 H Lactic Acid Calcium Ferritin AST ALT Lactate Dehydrogenase C-Reactive Protein Total Protein Albumin Triglycerides Arterial Blood Glucose Arterial Blood Ionized Calcium Urine Creatinine Urine Total Protein Vancomycin Trough Coronavirus (PCR) SARS-CoV-2 IgG Ab 08/07/20 08/07/20 08/07/20 18:25 22:31 23:39 WBC RBC Hgb Hct MCH MCHC RDW Plt Count Lymph % (Auto) Lymph # (Auto) Seg Neutrophils % Seg Neuts % (Manual) Lymphocytes % (Manual) Eosinophils % (Manual) Nucleated RBC % Seg Neutrophils # Seg Neutrophils # Man Lymphocytes # (Manual) Eosinophils # (Manual) PT INR D-Dimer Heparin Anti-Xa Level 0.25 L ABG pH POC ABG pCO2 POC ABG pO2 ABG pO2 ABG HCO3 ABG O2 Saturation ABG Base Excess ABG Hemoglobin ABG Oxyhemoglobin ABG Sodium ABG Potassium ABG Chloride ABG Glucose Oxyhemoglobin Carboxyhemoglobin Sodium Potassium Chloride Carbon Dioxide BUN Creatinine Glucose POC Glucose 195 H 220 H Lactic Acid Calcium Ferritin AST ALT Lactate Dehydrogenase C-Reactive Protein Total Protein Albumin Triglycerides Arterial Blood Glucose Arterial Blood Ionized Calcium Urine Creatinine Urine Total Protein Vancomycin Trough Coronavirus (PCR) SARS-CoV-2 IgG Ab 08/08/20 08/08/20 08/08/20 05:54 11:56 18:22 WBC RBC Hgb Hct MCH MCHC RDW Plt Count Lymph % (Auto) Lymph # (Auto) Seg Neutrophils % Seg Neuts % (Manual) Lymphocytes % (Manual) Eosinophils % (Manual) Nucleated RBC % Seg Neutrophils # Seg Neutrophils # Man Lymphocytes # (Manual) Eosinophils # (Manual) PT INR D-Dimer Heparin Anti-Xa Level ABG pH POC ABG pCO2 POC ABG pO2 ABG pO2 ABG HCO3 ABG O2 Saturation ABG Base Excess ABG Hemoglobin ABG Oxyhemoglobin ABG Sodium ABG Potassium ABG Chloride ABG Glucose Oxyhemoglobin Carboxyhemoglobin Sodium Potassium Chloride Carbon Dioxide BUN Creatinine Glucose POC Glucose 232 H 155 H 134 H Lactic Acid Calcium Ferritin AST ALT Lactate Dehydrogenase C-Reactive Protein Total Protein Albumin Triglycerides Arterial Blood Glucose Arterial Blood Ionized Calcium Urine Creatinine Urine Total Protein Vancomycin Trough Coronavirus (PCR) SARS-CoV-2 IgG Ab 08/09/20 08/09/20 08/09/20 05:38 05:38 11:55 WBC RBC Hgb Hct MCH MCHC RDW Plt Count Lymph % (Auto) Lymph # (Auto) Seg Neutrophils % Seg Neuts % (Manual) Lymphocytes % (Manual) Eosinophils % (Manual) Nucleated RBC % Seg Neutrophils # Seg Neutrophils # Man Lymphocytes # (Manual) Eosinophils # (Manual) PT INR D-Dimer Heparin Anti-Xa Level ABG pH POC ABG pCO2 52.0 H POC ABG pO2 54.1 L ABG pO2 ABG HCO3 ABG O2 Saturation ABG Base Excess ABG Hemoglobin 10.2 L ABG Oxyhemoglobin ABG Sodium ABG Potassium ABG Chloride 108.0 H ABG Glucose 124 H Oxyhemoglobin Carboxyhemoglobin Sodium Potassium Chloride 108.2 H Carbon Dioxide BUN 22 H Creatinine Glucose POC Glucose 130 H Lactic Acid Calcium Ferritin AST ALT Lactate Dehydrogenase C-Reactive Protein Total Protein Albumin Triglycerides Arterial Blood Glucose 124 H Arterial Blood Ionized Calcium Urine Creatinine Urine Total Protein Vancomycin Trough Coronavirus (PCR) SARS-CoV-2 IgG Ab 08/09/20 08/09/20 08/09/20 11:55 18:12 23:09 WBC RBC Hgb 8.9 L Hct 28.4 L MCH MCHC RDW Plt Count Lymph % (Auto) Lymph # (Auto) Seg Neutrophils % Seg Neuts % (Manual) Lymphocytes % (Manual) Eosinophils % (Manual) Nucleated RBC % Seg Neutrophils # Seg Neutrophils # Man Lymphocytes # (Manual) Eosinophils # (Manual) PT INR D-Dimer Heparin Anti-Xa Level ABG pH POC ABG pCO2 POC ABG pO2 ABG pO2 ABG HCO3 ABG O2 Saturation ABG Base Excess ABG Hemoglobin ABG Oxyhemoglobin ABG Sodium ABG Potassium ABG Chloride ABG Glucose Oxyhemoglobin Carboxyhemoglobin Sodium Potassium Chloride Carbon Dioxide BUN Creatinine Glucose POC Glucose 135 H 132 H Lactic Acid Calcium Ferritin AST ALT Lactate Dehydrogenase C-Reactive Protein Total Protein Albumin Triglycerides Arterial Blood Glucose Arterial Blood Ionized Calcium Urine Creatinine Urine Total Protein Vancomycin Trough Coronavirus (PCR) SARS-CoV-2 IgG Ab 08/10/20 08/10/20 08/10/20 05:00 05:00 05:38 WBC 14.6 H RBC 2.63 L Hgb 7.8 L Hct 24.6 L MCH MCHC RDW 17.9 H Plt Count Lymph % (Auto) Lymph # (Auto) Seg Neutrophils % Seg Neuts % (Manual) Lymphocytes % (Manual) Eosinophils % (Manual) Nucleated RBC % Seg Neutrophils # Seg Neutrophils # Man Lymphocytes # (Manual) Eosinophils # (Manual) PT INR D-Dimer Heparin Anti-Xa Level ABG pH POC ABG pCO2 POC ABG pO2 ABG pO2 ABG HCO3 ABG O2 Saturation ABG Base Excess ABG Hemoglobin ABG Oxyhemoglobin ABG Sodium ABG Potassium ABG Chloride ABG Glucose Oxyhemoglobin Carboxyhemoglobin Sodium Potassium Chloride 108.6 H Carbon Dioxide BUN 27 H Creatinine Glucose 133 H POC Glucose 115 H Lactic Acid Calcium Ferritin AST ALT Lactate Dehydrogenase C-Reactive Protein Total Protein 5.3 L Albumin 2.3 L Triglycerides 185 H Arterial Blood Glucose Arterial Blood Ionized Calcium Urine Creatinine Urine Total Protein Vancomycin Trough Coronavirus (PCR) SARS-CoV-2 IgG Ab 08/10/20 08/10/20 08/10/20 05:45 18:12 19:30 WBC RBC Hgb Hct MCH MCHC RDW Plt Count Lymph % (Auto) Lymph # (Auto) Seg Neutrophils % Seg Neuts % (Manual) Lymphocytes % (Manual) Eosinophils % (Manual) Nucleated RBC % Seg Neutrophils # Seg Neutrophils # Man Lymphocytes # (Manual) Eosinophils # (Manual) PT INR D-Dimer Heparin Anti-Xa Level ABG pH 7.152 L* POC ABG pCO2 51.3 H POC ABG pO2 ABG pO2 50.5 L ABG HCO3 27.6 H ABG O2 Saturation 77.7 L ABG Base Excess -2.3 L ABG Hemoglobin 7.9 L 10.0 L ABG Oxyhemoglobin ABG Sodium ABG Potassium ABG Chloride 109.0 H ABG Glucose 141 H Oxyhemoglobin 75.1 L Carboxyhemoglobin Sodium Potassium Chloride Carbon Dioxide BUN Creatinine Glucose POC Glucose 125 H Lactic Acid Calcium Ferritin AST ALT Lactate Dehydrogenase C-Reactive Protein Total Protein Albumin Triglycerides Arterial Blood Glucose 141 H Arterial Blood Ionized Calcium 4.5 L Urine Creatinine Urine Total Protein Vancomycin Trough Coronavirus (PCR) SARS-CoV-2 IgG Ab 08/10/20 08/11/20 08/11/20 23:29 03:50 05:29 WBC RBC Hgb Hct MCH MCHC RDW Plt Count Lymph % (Auto) Lymph # (Auto) Seg Neutrophils % Seg Neuts % (Manual) Lymphocytes % (Manual) Eosinophils % (Manual) Nucleated RBC % Seg Neutrophils # Seg Neutrophils # Man Lymphocytes # (Manual) Eosinophils # (Manual) PT INR D-Dimer Heparin Anti-Xa Level ABG pH 7.189 L* POC ABG pCO2 POC ABG pO2 ABG pO2 59.2 L ABG HCO3 27.3 H ABG O2 Saturation 83.9 L ABG Base Excess ABG Hemoglobin 6.6 L ABG Oxyhemoglobin ABG Sodium ABG Potassium ABG Chloride ABG Glucose Oxyhemoglobin 81.0 L Carboxyhemoglobin Sodium Potassium Chloride Carbon Dioxide BUN Creatinine Glucose POC Glucose 116 H 112 H Lactic Acid Calcium Ferritin AST ALT Lactate Dehydrogenase C-Reactive Protein Total Protein Albumin Triglycerides Arterial Blood Glucose Arterial Blood Ionized Calcium Urine Creatinine Urine Total Protein Vancomycin Trough Coronavirus (PCR) SARS-CoV-2 IgG Ab 08/11/20 08/11/20 08/11/20 06:45 06:45 08:50 WBC RBC Hgb 8.2 L Hct 26.9 L MCH MCHC RDW Plt Count Lymph % (Auto) Lymph # (Auto) Seg Neutrophils % Seg Neuts % (Manual) Lymphocytes % (Manual) Eosinophils % (Manual) Nucleated RBC % Seg Neutrophils # Seg Neutrophils # Man Lymphocytes # (Manual) Eosinophils # (Manual) PT INR D-Dimer Heparin Anti-Xa Level 0.28 L ABG pH POC ABG pCO2 POC ABG pO2 ABG pO2 ABG HCO3 ABG O2 Saturation ABG Base Excess ABG Hemoglobin ABG Oxyhemoglobin ABG Sodium ABG Potassium ABG Chloride ABG Glucose Oxyhemoglobin Carboxyhemoglobin Sodium 147 H Potassium Chloride 109.5 H Carbon Dioxide BUN 30 H Creatinine Glucose 145 H POC Glucose Lactic Acid Calcium Ferritin AST ALT Lactate Dehydrogenase C-Reactive Protein Total Protein 5.6 L Albumin 2.4 L Triglycerides Arterial Blood Glucose Arterial Blood Ionized Calcium Urine Creatinine Urine Total Protein Vancomycin Trough Coronavirus (PCR) SARS-CoV-2 IgG Ab 08/11/20 11:56 WBC RBC Hgb Hct MCH MCHC RDW Plt Count Lymph % (Auto) Lymph # (Auto) Seg Neutrophils % Seg Neuts % (Manual) Lymphocytes % (Manual) Eosinophils % (Manual) Nucleated RBC % Seg Neutrophils # Seg Neutrophils # Man Lymphocytes # (Manual) Eosinophils # (Manual) PT INR D-Dimer Heparin Anti-Xa Level ABG pH POC ABG pCO2 POC ABG pO2 ABG pO2 ABG HCO3 ABG O2 Saturation ABG Base Excess ABG Hemoglobin ABG Oxyhemoglobin ABG Sodium ABG Potassium ABG Chloride ABG Glucose Oxyhemoglobin Carboxyhemoglobin Sodium Potassium Chloride Carbon Dioxide BUN Creatinine Glucose POC Glucose 108 H Lactic Acid Calcium Ferritin AST ALT Lactate Dehydrogenase C-Reactive Protein Total Protein Albumin Triglycerides Arterial Blood Glucose Arterial Blood Ionized Calcium Urine Creatinine Urine Total Protein Vancomycin Trough Coronavirus (PCR) SARS-CoV-2 IgG Ab Chest x-ray: image reviewed (chest tubes in place; no pneumothorax) Allied health notes reviewed: nursing
--- NOTE | 2020-08-11 15:40 | Progress Note ---
Assessment and Plan Assessment and Plan -Severe COVID-19 PNA -On vent. Sedated -Completed steroids and remdesivir -ID following -- Acute hypoxic respiratory failure Mechanically ventilated Continue antibiotics for MRSA sputum. --- Ventilator associated pneumonia from MRSA and E. coli Continue cefepime and vancomycin ID following ---Sinus tachycardia Possible PE. D-dimer >4k Started on full dose anticoagulation Plan to do Cta chest when stable Monitor hemoglobin --Pneumothorax and subcutaneous emphysema Chest x-ray today shows improvement in pneumothorax and bilateral opacities. 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 -- Full code status Subjective Date of service: 08/11/20 Principal diagnosis: Ac hypoxemic resp failure; PNA; COVID-19 infxn; SLE; Asthma exacerbation Interval history: brief History: 50-year-old female with a past medical history of asthma, hypertension, and lupus complains of generalized body weakness, fever and shortness of breath. Patient states the symptoms started right after she was discharged from [facility] on 07/05. She has associated wheezing, fever, cough and she has been using her inhalers with no significant effect. She also has associated diarrhea. Of note, she was hospitalized here in [facility] on 06/28 for asthma exacerbation and had a negative Covid test during the admission. She was treated and discharged. She presented to [facility] for further evaluation after discharge from here and over there, she was found to have positive COVID-19 test and she was placed on steroids and subsequently discharged on Eliquis prophylaxis for DVT. She states that she did not receive remdesivir during the admission. She was discharged from [facility] on 07/05. She went home and felt worse. She said that she passed out about 2 times. Due to persistent symptoms, she called EMS who brought her to [facility] for further evaluation. Daily course: 07/07. Patient seen and examined at bedside this morning. Patient is wheezing and slightly short of breath. Change steroids to Solu-Medrol 60 every 6. Added formoterol and budesonide. ID evaluation pending. Started patient on remdesivir as she is short of breath. 07/07: Placed on BIPAP this AM. Will need pulm evaluation. Solumedrol 60mg q6. STAT blood gas ordered. She will be transferred to [facility]. 07/08: Patient took oxygen off and attempts to go to the bathroom and subsequently became hypoxemic with sats down into the low 80s. Patient became weak short of breath. After that time patient had persistent coughing and cannot maintain sats until nonrebreather was placed. Patient is transferred to the ICU unit and monitored for respiratory failure possibly requiring intubation. 07/09: ID recommended for convalescent plasma, ordered. Patient intubated overnight. Continue to monitor clinically, scheduled lab, follow inflammatory markers 07/10: Wait for convalescent plasma transfusion, wean off from ventilator as tolerated 07/11: Called patient's daughter and updated. Continue to wean off vent as tolerated, continue tube feeding, monitor vital sign CBC BMP daily. 07/12: remains intubated and sedated. follow inflammatory markers - wean off vent as tolerated 07/13: wean off vent as tolerated, cxr in the am. reviewed vitals 07/14: remains intubated, has not received convalescent plasma yet. Reviewed vitals, tolerating tube feeding. Wean off vent per critical care as tolerated. 07/15: cont to provide supportive care, wean off vent as tolerated - difficult to wean off. 07/16: CXR findings improving, cont to wean off vent 07/17: Follow inflammatory markers, monitor off antibiotics. Wean off vent per pulmonary as tolerated 07/18: Wean off vent per pulmonary as tolerated,Follow inflammatory markers, monitor off antibiotics. 07/19: Wean off vent per pulmonary as tolerated,Follow inflammatory markers, monitor off antibiotics. SBT trial 07/20: Wean off vent as tolerated, continue supportive care, follow inflammatory markers 07/21: continue supportive care, follow inflammatory markers, wean off vent as tolerated 07/22: Continue to wean off from ventilator as tolerated per pulmonary recommendation, follow inflammatory markers. Repeat CBC BMP in the morning. We will repeat Covid test tomorrow to see if patient cleared the infection. 07/23. Continue to wean off from ventilator as tolerated per pulmonary recommendation, follow inflammatory markers. Currently AC mode, rate 16, tidal volume 450 with FiO2 75%vand PEEP 14 07/24/2020. Continue ventilatory support with AC mode, rate 16, tidal volume 450, FiO2 100% and PEEP of 16. Continue Brovana and Pulmicort. Continue IV steroids 40 mg IV every 8 hours. Anticoagulation with Lovenox 30 mg twice daily. Patient currently sedated with Versed and fentanyl. 07/25/2020. Continue ventilatory support with AC mode, rate 16, tidal volume 450, FiO2 75% and PEEP of 16. Continue Brovana and Pulmicort. Continue IV steroids 40 mg IV every 8 hours. Anticoagulation with Lovenox 30 mg twice daily. Patient currently sedated with Versed and fentanyl. Continue to wean per pulmonary recommendations. 07/26/2020. Continue ventilatory support with AC mode, rate 16, tidal volume 450, FiO2 85% and PEEP of 16. Continue Brovana and Pulmicort. Continue IV steroids 40 mg IV every 8 hours. Anticoagulation with Lovenox 30 mg twice daily. Patient currently sedated with Versed and fentanyl. Continue to wean per protocol. 07/27/2020. Continue ventilatory support with AC mode, rate 16, tidal volume 450, FiO2 100% and PEEP of 16. Patient with increased oxygen requirements the past couple of days. Continue Brovana and Pulmicort. Continue IV steroids 40 mg IV every 8 hours. Anticoagulation with Lovenox 30 mg twice daily. Patient currently sedated with Versed and fentanyl. Dose of Lasix given by pulmonary yesterday to achieve negative fluid balance. Follow-up serial chest x-ray 07/28/2020. Continue ventilatory support with AC mode, rate 16, tidal volume 450, FiO2 100% and PEEP of 16. Wean FiO2 per protocol. Continue Brovana and Pulmicort. Continue IV steroids 40 mg IV every 8 hours. Anticoagulation with Lovenox 30 mg twice daily. Patient currently sedated with Versed and fentanyl. 07/29/2020. Continue ventilatory support with AC mode, rate 16, tidal volume 450, FiO2 100% and PEEP of 16. Wean FiO2 per protocol. Continue Brovana and Pulmicort. Continue IV steroids 40 mg IV every 8 hours. Anticoagulation with Lovenox 30 mg twice daily. Wean sedation as tolerated. 07/30. Continue ventilatory support with AC mode, rate 16, tidal volume 450, FiO2 100% and PEEP of 16. Wean FiO2 per protocol. Continue Brovana and Pulmicort. Continue IV steroids 40 mg IV every 8 hours. Anticoagulation with Lovenox 30 mg twice daily. Wean sedation as tolerated. 07/31. Still ventilated. On sedatives. Renal function worse today. nephrology has been consulted. Started patient on IV hydration. BC - GN rods and staph aureus. She is on vancomycin. 08/01. Still ventilated. On sedatives. Renal function worse today. nephrology has been consulted. Started patient on IV hydration. BC - GN rods and staph aureus. She is on vancomycin. 08/02. Chest xray shows worsening pneumothorax. Chest tube in place. On vent and sedated 08/03. Continue ventilatory support with AC mode, rate 30, tidal volume 4000, FiO2 100% and PEEP of 16. Wean FiO2 per protocol. Continue Brovana and Pulmicort. Anticoagulation with Lovenox 30 mg twice daily. Wean sedation as tolerated. 08/04. Now has a left chest tube in place due to worsening pneumothorax. She also has subcutaneous emphysema. ID on board - on IV antibiotics-cefepime and vancomycin. ID following. 08/05. Patient is more tachycardic today with heart rate in 130s overnight. Chest x-ray shows improvement in pneumothoraces and bilateral opacities. Patient likely has a PE. Patient has been started on full anticoagulation. Still maintained on IV antibiotics. Continue ventilatory support. 08/06/2020; patient's Covid positive, pneumothorax on chest tube. Patient is likely has PE and started on heparin drip. Patient is intubated and sedated and pulmonary is following. 08/07/2020; patient's Covid positive, pneumothorax on chest tube. Patient is likely has PE and started on heparin drip. Patient is intubated and sedated and pulmonary is following. 08/08/2020; patient's Covid positive, pneumothorax on chest tube. Patient is likely has PE and started on heparin drip. Patient is intubated and sedated and pulmonary is following. 08/09/2020; patient is Covid positive, pneumothorax and on chest tubes. Patient likely has PE and on heparin drip. Patient is intubated and sedated. Pulmonary critical care is following the patient. 08/10/2020 Continue vent management 08/11/2020 Patient is Covid positive with pneumothorax and highly likely pulmonary embolism. Continue ventilation management Objective - Constitutional Vitals: Vital Signs - 12hr 08/11/20 08/11/20 08/11/20 03:46 04:00 04:11 Temperature 96.6 F L Pulse Rate 102 H 107 H 108 H Pulse Rate [ Bilateral Throughout] Respiratory 28 H 30 H Rate Respiratory Rate [Bilateral Throughout] Blood Pressure 152/96 151/87 151/87 O2 Sat by Pulse 91 92 91 Oximetry 08/11/20 08/11/20 08/11/20 04:16 04:30 04:46 Temperature Pulse Rate 109 H 109 H 112 H Pulse Rate [ Bilateral Throughout] Respiratory 27 H 30 H 30 H Rate Respiratory Rate [Bilateral Throughout] Blood Pressure 144/81 143/84 142/79 O2 Sat by Pulse 90 89 87 Oximetry 08/11/20 08/11/20 08/11/20 05:00 05:16 05:30 Temperature Pulse Rate 114 H 112 H 110 H Pulse Rate [ Bilateral Throughout] Respiratory 26 H 24 24 Rate Respiratory Rate [Bilateral Throughout] Blood Pressure 150/79 141/78 138/80 O2 Sat by Pulse 88 90 90 Oximetry 08/11/20 08/11/20 08/11/20 05:46 06:00 06:16 Temperature Pulse Rate 111 H 112 H 110 H Pulse Rate [ Bilateral Throughout] Respiratory 22 27 H 24 Rate Respiratory Rate [Bilateral Throughout] Blood Pressure 140/77 146/78 138/79 O2 Sat by Pulse 90 90 90 Oximetry 08/11/20 08/11/20 08/11/20 06:30 06:46 07:00 Temperature 97.3 F L Pulse Rate 108 H 109 H 108 H Pulse Rate [ Bilateral Throughout] Respiratory 27 H 24 26 H Rate Respiratory Rate [Bilateral Throughout] Blood Pressure 138/82 145/81 145/81 O2 Sat by Pulse 89 88 88 Oximetry 08/11/20 08/11/20 08/11/20 07:16 07:30 07:46 Temperature Pulse Rate 111 H 111 H 109 H Pulse Rate [ Bilateral Throughout] Respiratory 26 H 24 22 Rate Respiratory Rate [Bilateral Throughout] Blood Pressure 145/81 144/83 139/85 O2 Sat by Pulse 89 87 86 Oximetry 08/11/20 08/11/20 08/11/20 08:00 08:16 08:30 Temperature Pulse Rate 109 H 109 H 108 H Pulse Rate [ Bilateral Throughout] Respiratory 25 H 26 H 24 Rate Respiratory Rate [Bilateral Throughout] Blood Pressure 144/87 154/90 164/90 O2 Sat by Pulse 86 85 89 Oximetry 08/11/20 08/11/20 08/11/20 08:41 08:46 09:00 Temperature Pulse Rate 119 H 114 H 116 H Pulse Rate [ 117 H Bilateral Throughout] Respiratory 26 H 22 Rate Respiratory 31 H Rate [Bilateral Throughout] Blood Pressure 126/65 138/82 138/82 O2 Sat by Pulse 92 84 86 Oximetry 08/11/20 08/11/20 08/11/20 09:16 09:30 09:46 Temperature Pulse Rate 120 H 118 H 119 H Pulse Rate [ Bilateral Throughout] Respiratory 18 18 16 Rate Respiratory Rate [Bilateral Throughout] Blood Pressure 126/65 126/65 115/63 O2 Sat by Pulse 92 91 91 Oximetry 08/11/20 08/11/20 08/11/20 10:00 10:16 10:30 Temperature Pulse Rate 118 H 118 H 120 H Pulse Rate [ Bilateral Throughout] Respiratory 17 25 H 19 Rate Respiratory Rate [Bilateral Throughout] Blood Pressure 115/63 111/64 111/64 O2 Sat by Pulse 93 93 92 Oximetry 08/11/20 08/11/20 08/11/20 10:46 11:00 11:16 Temperature Pulse Rate 117 H 118 H 121 H Pulse Rate [ Bilateral Throughout] Respiratory 26 H 23 26 H Rate Respiratory Rate [Bilateral Throughout] Blood Pressure 101/65 101/65 96/60 O2 Sat by Pulse 91 91 90 Oximetry 08/11/20 08/11/20 08/11/20 11:30 11:46 11:57 Temperature Pulse Rate 114 H 115 H 115 H Pulse Rate [ Bilateral Throughout] Respiratory 25 H 18 Rate Respiratory Rate [Bilateral Throughout] Blood Pressure 96/60 105/69 126/65 O2 Sat by Pulse 89 90 92 Oximetry 08/11/20 08/11/20 08/11/20 12:00 12:16 12:30 Temperature 97.9 F Pulse Rate 115 H 112 H 114 H Pulse Rate [ Bilateral Throughout] Respiratory 16 16 20 Rate Respiratory Rate [Bilateral Throughout] Blood Pressure 105/69 116/59 116/59 O2 Sat by Pulse 91 89 90 Oximetry 08/11/20 12:46 Temperature Pulse Rate 113 H Pulse Rate [ Bilateral Throughout] Respiratory 18 Rate Respiratory Rate [Bilateral Throughout] Blood Pressure 105/64 O2 Sat by Pulse 90 Oximetry General appearance: Present: mild distress, well-nourished - EENT Eyes: PERRL, EOM intact ENT: hearing intact, clear oral mucosa Ears: bilateral: normal - Neck Neck: supple, normal ROM - Respiratory Respiratory effort: normal Respiratory: bilateral: CTA - Breasts Breasts: normal - Cardiovascular Heart rate: 78 Rhythm: regular Heart Sounds: Present: S1 & S2. Absent: gallop, rub Extremities: pulses intact, No edema, normal color, Full ROM - Gastrointestinal General gastrointestinal: Present: soft, non-tender, non-distended, normal bowel sounds - Genitourinary Female genitourinary: normal - Integumentary Integumentary: clear, warm, dry - Musculoskeletal Musculoskeletal: 1, strength equal bilaterally - Neurologic Neurologic: moves all extremities - Psychiatric Psychiatric: memory intact, appropriate mood/affect, intact judgment & insight - Allied health notes Allied health notes reviewed: nursing, case management - Labs CBC & Chem 7: 08/11/20 06:45 08/11/20 06:45 Labs: Abnormal lab results 08/10/20 08/10/20 08/10/20 Range/Units 18:12 19:30 23:29 Hgb (10.1-14.3) gm/dl Hct (30.3-42.9) % Heparin Anti-Xa Level (0.3-0.7) U.I./ml ABG pH 7.152 L* (7.350-7.450) pH Units ABG pO2 50.5 L (80.0-90.0) mm Hg ABG HCO3 27.6 H (20.0-26.0) mmol/L ABG O2 Saturation 77.7 L (95.0-99.0) % ABG Base Excess -2.3 L (-2.0-3.0) mmol/L ABG Hemoglobin 10.0 L (12.0-16.0) gm/dl Oxyhemoglobin 75.1 L (95.0-99.0) % Sodium (137-145) mmol/L Chloride (98-107) mmol/L BUN (7-17) mg/dL Glucose (65-100) mg/dL POC Glucose 125 H 116 H (70-105) mg/dL Total Protein (6.3-8.2) g/dL Albumin (3.9-5) g/dL 08/11/20 08/11/20 08/11/20 Range/Units 03:50 05:29 06:45 Hgb 8.2 L (10.1-14.3) gm/dl Hct 26.9 L (30.3-42.9) % Heparin Anti-Xa Level (0.3-0.7) U.I./ml ABG pH 7.189 L* (7.350-7.450) pH Units ABG pO2 59.2 L (80.0-90.0) mm Hg ABG HCO3 27.3 H (20.0-26.0) mmol/L ABG O2 Saturation 83.9 L (95.0-99.0) % ABG Base Excess (-2.0-3.0) mmol/L ABG Hemoglobin 6.6 L (12.0-16.0) gm/dl Oxyhemoglobin 81.0 L (95.0-99.0) % Sodium (137-145) mmol/L Chloride (98-107) mmol/L BUN (7-17) mg/dL Glucose (65-100) mg/dL POC Glucose 112 H (70-105) mg/dL Total Protein (6.3-8.2) g/dL Albumin (3.9-5) g/dL 08/11/20 08/11/20 08/11/20 Range/Units 06:45 08:50 11:56 Hgb (10.1-14.3) gm/dl Hct (30.3-42.9) % Heparin Anti-Xa Level 0.28 L (0.3-0.7) U.I./ml ABG pH (7.350-7.450) pH Units ABG pO2 (80.0-90.0) mm Hg ABG HCO3 (20.0-26.0) mmol/L ABG O2 Saturation (95.0-99.0) % ABG Base Excess (-2.0-3.0) mmol/L ABG Hemoglobin (12.0-16.0) gm/dl Oxyhemoglobin (95.0-99.0) % Sodium 147 H (137-145) mmol/L Chloride 109.5 H (98-107) mmol/L BUN 30 H (7-17) mg/dL Glucose 145 H (65-100) mg/dL POC Glucose 108 H (70-105) mg/dL Total Protein 5.6 L (6.3-8.2) g/dL Albumin 2.4 L (3.9-5) g/dL
[2020-08-12] MEDS: NORepinephrine/NS 4 MG-250 ML 4 MG/250 ML BAG IV SCH ×3 (01:19→11:03)
[2020-08-12] MEDS: PROPOFOL 500 MG/50 ML VIAL IV SCH ×4 (01:20→09:41)
[2020-08-12] MEDS: MIDAZOLAM 100 MG in SODIUM CHLORIDE 0.9% 80 ML IV SCH (01:21)
[2020-08-12] MEDS: fentaNYL DRIP Premix 2,000 MCG/100 ML BAG IV SCH ×4 (01:22→08:17)
[2020-08-12] MEDS: QUEtiapine 200 MG TAB PO SCH (01:23)
[2020-08-12] MEDS: DOCUSATE SODIUM 100 MG/10 ML ORAL LIQD PO SCH (01:24)
[2020-08-12] MEDS: GABAPENTIN 300 MG CAP PO SCH ×2 (01:24→06:07)
[2020-08-12] MEDS: methylPREDNISolone Sod Succinate 40 MG/1 ML INJ IV SCH ×2 (01:37→06:08)
[2020-08-12] MEDS: ASCORBIC ACID 500 MG TAB PO SCH (01:45)
[2020-08-12] MEDS: ZINC SULFATE 220 MG CAP PO SCH (01:46)
[2020-08-12 04:59] LABS: ABG Base Excess -3.8 mmol/L (-2.0-3.0); ABG HCO3 25.6 mmol/L (20.0-26.0); ABG Methemoglobin 0.4 % (0.0-1.5); ABG Oxygen Saturation 91.6 % (95.0-99.0); ABG PCO2 77.7 mm Hg; ABG PO2 70.2 mm Hg (80.0-90.0)
[2020-08-12 05:09] LABS: ABG PH 7.135 pH Units (7.350-7.450)
[2020-08-12] MEDS: chlordiazePOXIDE 25 MG CAP PO SCH (06:03)
[2020-08-12] MEDS: INSULIN REGULAR, HUMAN 100 UNIT/ML 3ML VIAL SUB-Q SCH ×2 (06:07)
[2020-08-12] MEDS: METOCLOPRAMIDE 10 MG/2 ML INJ IV SCH (06:09)
--- NOTE | 2020-08-12 08:37 | Progress Note ---
Assessment and Plan Assessment and plan: -- Acute hypoxic respiratory failure; Requiring mechanically ventilation Wean as tolerated and extubate Continue antibiotics for MRSA pneumonia Pulmonary critical following Very poor prognosis --Severe COVID-19 PNA -On vent. Sedated -Completed steroids and remdesivir ID following, poor prognosis -- Ventilator associated pneumonia from MRSA and E. coli Continue cefepime and vancomycin ID following ---Sinus tachycardia Possible PE. D-dimer >4k Started on full dose anticoagulation Plan to do Cta chest when stable Monitor hemoglobin --Pneumothorax and subcutaneous emphysema Chest x-ray today shows improvement in pneumothorax and bilateral opacities. 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 --Morbid obesity; BMI 42.2 Patient needs weight reduction when medically stable -- Full code status Patient is critically ill with multiple medical problems Very poor prognosis, will try to contact the family and discuss Patient's condition treatment plan and prognosis Total CARE time 40 minutes History Interval history: I have seen and examined the patient at the bedside in ICU this morning Patient's chart and medications reviewed Patient is Covid positive pneumonia Remains intubated on ventilatory support Critically ill vital signs noted Hospitalist Physical - Constitutional Vitals: Temp Pulse Resp BP Pulse Ox 96.6 F L 106 H 21 94/49 84 08/12/20 04:00 08/12/20 06:00 08/12/20 06:00 08/12/20 06:00 08/12/20 06:00 General appearance: Present: mild distress, well-nourished, obese (Morbidly obese), other (Orally intubated on ventilatory support) - EENT Eyes: Present: PERRL, EOM intact - Neck Neck: Present: supple, normal ROM - Respiratory Respiratory effort: labored Respiratory: bilateral: diminished, rhonchi, negative: rales, wheezing - Cardiovascular Rhythm: regular Heart Sounds: Present: S1 & S2 - Extremities Extremities: no ischemia Extremity abnormal: edema - Abdominal General gastrointestinal: soft, non-tender, non-distended, normal bowel sounds - Integumentary Integumentary: Present: clear, warm - Psychiatric Psychiatric: other (Intubated on vent) - Neurologic Neurologic: other (Intubated on vent) Results - Labs CBC & Chem 7: 08/11/20 06:45 08/11/20 06:45 Labs: Laboratory Last Values WBC 14.6 K/mm3 (4.5-11.0) H 08/10/20 05:00 RBC 2.63 M/mm3 (3.65-5.03) L 08/10/20 05:00 Hgb 8.2 gm/dl (10.1-14.3) L 08/11/20 06:45 Hct 26.9 % (30.3-42.9) L 08/11/20 06:45 MCV 93 fl (79-97) 08/10/20 05:00 MCH 30 pg (28-32) 08/10/20 05:00 MCHC 32 % (30-34) 08/10/20 05:00 RDW 17.9 % (13.2-15.2) H 08/10/20 05:00 Plt Count 259 K/mm3 (140-440) 08/11/20 06:45 Lymph % (Auto) 5.3 % (13.4-35.0) L 08/07/20 02:06 [place] % (Auto) 1.8 % (0.0-7.3) 08/07/20 02:06 Eos % (Auto) 0.3 % (0.0-4.3) 08/07/20 02:06 Baso % (Auto) 0.5 % (0.0-1.8) 08/07/20 02:06 Lymph # (Auto) 1.0 K/mm3 (1.2-5.4) L 08/07/20 02:06 [place] # (Auto) 0.3 K/mm3 (0.0-0.8) 08/07/20 02:06 Eos # (Auto) 0.1 K/mm3 (0.0-0.4) 08/07/20 02:06 Baso # (Auto) 0.1 K/mm3 (0.0-0.1) 08/07/20 02:06 Add Manual Diff Complete 08/06/20 04:00 Total Counted 100 08/06/20 04:00 Seg Neutrophils % Coiled Tubing Operator 08/07/20 02:06 Seg Neuts % (Manual) 86.0 % (40.0-70.0) H 08/06/20 04:00 Band Neutrophils % 4.0 % 08/06/20 04:00 Lymphocytes % (Manual) 5.0 % (13.4-35.0) L 08/06/20 04:00 Reactive Lymphs % (Man) 0 % 08/06/20 04:00 Monocytes % (Manual) 2.0 % (0.0-7.3) 08/06/20 04:00 Eosinophils % (Manual) 0 % (0.0-4.3) 08/06/20 04:00 Basophils % (Manual) 0 % (0.0-1.8) 08/06/20 04:00 Metamyelocytes % 3.0 % 08/06/20 04:00 Myelocytes % 0 % 08/06/20 04:00 Promyelocytes % 0 % 08/06/20 04:00 Blast Cells % 0 % 08/06/20 04:00 Nucleated RBC % Not Reportable 08/06/20 04:00 Seg Neutrophils # 16.6 K/mm3 (1.8-7.7) H 08/07/20 02:06 Seg Neutrophils # Man 10.8 K/mm3 (1.8-7.7) H 08/06/20 04:00 Band Neutrophils # 0.5 K/mm3 08/06/20 04:00 Lymphocytes # (Manual) 0.6 K/mm3 (1.2-5.4) L 08/06/20 04:00 Abs React Lymphs (Man) 0.0 K/mm3 08/06/20 04:00 Monocytes # (Manual) 0.3 K/mm3 (0.0-0.8) 08/06/20 04:00 Eosinophils # (Manual) 0.0 K/mm3 (0.0-0.4) 08/06/20 04:00 Basophils # (Manual) 0.0 K/mm3 (0.0-0.1) 08/06/20 04:00 Metamyelocytes # 0.4 K/mm3 08/06/20 04:00 Myelocytes # 0.0 K/mm3 08/06/20 04:00 Promyelocytes # 0.0 K/mm3 08/06/20 04:00 Blast Cells # 0.0 K/mm3 08/06/20 04:00 Pathologist Review 08/03/20 04:49 WBC Morphology Not Reportable 08/06/20 04:00 Hypersegmented Neuts Not Reportable 08/06/20 04:00 Hyposegmented Neuts Not Reportable 08/06/20 04:00 Hypogranular Neuts Not Reportable 08/06/20 04:00 Smudge Cells Not Reportable 08/06/20 04:00 Toxic Granulation Not Reportable 08/06/20 04:00 Toxic Vacuolation Not Reportable 08/06/20 04:00 Dohle Bodies Not Reportable 08/06/20 04:00 Pelger-Huet Anomaly Not Reportable 08/06/20 04:00 Savanna Rods Not Reportable 08/06/20 04:00 Platelet Estimate Consistent w auto 08/06/20 04:00 Clumped Platelets Not Reportable 08/06/20 04:00 Plt Clumps, EDTA Not Reportable 08/06/20 04:00 Large Platelets Not Reportable 08/06/20 04:00 Giant Platelets Not Reportable 08/06/20 04:00 Platelet Satelliting Not Reportable 08/06/20 04:00 Plt Morphology Comment Not Reportable 08/06/20 04:00 RBC Morphology Not Reportable 08/06/20 04:00 Dimorphic RBCs Not Reportable 08/06/20 04:00 Polychromasia Few 08/06/20 04:00 Hypochromasia 1+ 08/06/20 04:00 Poikilocytosis Not Reportable 08/06/20 04:00 Anisocytosis Few 08/06/20 04:00 Microcytosis Not Reportable 08/06/20 04:00 Macrocytosis Not Reportable 08/06/20 04:00 Spherocytes Not Reportable 08/06/20 04:00 Pappenheimer Bodies Not Reportable 08/06/20 04:00 Sickle Cells Not Reportable 08/06/20 04:00 Target Cells Not Reportable 08/06/20 04:00 Tear Drop Cells Not Reportable 08/06/20 04:00 Ovalocytes Not Reportable 08/06/20 04:00 Helmet Cells Not Reportable 08/06/20 04:00 Raza-Ostrander Bodies Not Reportable 08/06/20 04:00 [place] Rings Not Reportable 08/06/20 04:00 Kristan Cells Not Reportable 08/06/20 04:00 Bite Cells Not Reportable 08/06/20 04:00 Crenated Cell Not Reportable 08/06/20 04:00 Elliptocytes Not Reportable 08/06/20 04:00 Acanthocytes (Spur) Not Reportable 08/06/20 04:00 Rouleaux Not Reportable 08/06/20 04:00 Hemoglobin C Crystals Not Reportable 08/06/20 04:00 Schistocytes Rare 08/06/20 04:00 Malaria parasites Not Reportable 08/06/20 04:00 Junaid Bodies Not Reportable 08/06/20 04:00 Hem Pathologist Commnt No 08/06/20 04:00 PT 15.4 Sec. (12.2-14.9) H 08/05/20 13:35 INR 1.22 (0.87-1.13) H 08/05/20 13:35 APTT 30.5 Sec. (24.2-36.6) 08/05/20 13:35 D-Dimer 4748.32 ng/mlDDU (0-234) H 08/05/20 13:35 Heparin Anti-Xa Level 1.27 U.I./ml (0.3-0.7) H 08/12/20 04:58 ABG pH 7.135 pH Units (7.350-7.450) L* 08/12/20 03:10 POC ABG pCO2 51.3 mmHg (32.0-48.0) H 08/10/20 05:45 ABG pCO2 77.7 mm Hg 08/12/20 03:10 POC ABG pO2 100.6 mmHg (83-108) 08/10/20 05:45 ABG pO2 70.2 mm Hg (80.0-90.0) L 08/12/20 03:10 POC ABG HCO3 27.9 08/10/20 05:45 ABG HCO3 25.6 mmol/L (20.0-26.0) 08/12/20 03:10 ABG O2 Saturation 91.6 % (95.0-99.0) L 08/12/20 03:10 ABG O2 Content 9.7 (0.0-44) 08/12/20 03:10 POC ABG Base Excess 2.0 08/10/20 05:45 ABG Base Excess -3.8 mmol/L (-2.0-3.0) L 08/12/20 03:10 ABG Hemoglobin 7.8 gm/dl (12.0-16.0) L 08/12/20 03:10 ABG Oxyhemoglobin 90.2 (94-98) L 08/06/20 21:11 ABG Carboxyhemoglobin 3.2 % (0.0-5.0) 08/12/20 03:10 ABG Methemoglobin 0.4 % (0.0-1.5) 08/12/20 03:10 ABG Sodium 140.4 mmol/L (136.0-145.0) 08/10/20 05:45 ABG Potassium 4.3 mmol/L (3.40-4.50) 08/10/20 05:45 ABG Chloride 109.0 mmol/L (98-107) H 08/10/20 05:45 ABG Glucose 141 mg/dL (65-95) H 08/10/20 05:45 Oxyhemoglobin 88.3 % (95.0-99.0) L 08/12/20 03:10 Carboxyhemoglobin 1.7 (0.5-1.5) H 08/06/20 21:11 FiO2 100 % 08/12/20 03:10 Sodium 147 mmol/L (137-145) H 08/11/20 06:45 Potassium 4.5 mmol/L (3.6-5.0) 08/11/20 06:45 Chloride 109.5 mmol/L (98-107) H 08/11/20 06:45 Carbon Dioxide 30 mmol/L (22-30) 08/11/20 06:45 Anion Gap 12 mmol/L 08/11/20 06:45 BUN 30 mg/dL (7-17) H 08/11/20 06:45 Creatinine 1.0 mg/dL (0.6-1.2) 08/11/20 06:45 Estimated GFR > 60 ml/min 08/11/20 06:45 BUN/Creatinine Ratio 30 % 08/11/20 06:45 Glucose 145 mg/dL (65-100) H 08/11/20 06:45 POC Glucose 147 mg/dL (70-105) H 08/12/20 05:20 Lactic Acid 1.80 mmol/L (0.7-2.0) 07/31/20 14:14 Calcium 8.7 mg/dL (8.4-10.2) 08/11/20 06:45 Phosphorus 3.20 mg/dL (2.5-4.5) 07/08/20 16:13 Magnesium 2.20 mg/dL (1.7-2.3) 07/08/20 16:13 Ferritin 964.8 ng/mL (10.0-200.0) H 07/31/20 14:14 Total Bilirubin 0.30 mg/dL (0.1-1.2) 08/11/20 06:45 AST 15 units/L (5-40) 08/11/20 06:45 ALT 34 units/L (7-56) 08/11/20 06:45 Alkaline Phosphatase 97 units/L (35-129) 08/11/20 06:45 Lactate Dehydrogenase 585 units/L (91-180) H 07/31/20 14:14 C-Reactive Protein 26.40 mg/dL (0.00-1.30) H 08/05/20 13:35 Total Protein 5.6 g/dL (6.3-8.2) L 08/11/20 06:45 Albumin 2.4 g/dL (3.9-5) L 08/11/20 06:45 Albumin/Globulin Ratio 0.8 % 08/11/20 06:45 Triglycerides 185 mg/dL (2-149) H 08/10/20 05:00 Procalcitonin 1.39 ng/mL (<0.15) 08/05/20 13:35 Arterial Blood Glucose 141 mg/dL (65-95) H 08/10/20 05:45 Arterial Blood Ionized Calcium 4.5 mg/dL (4.6-5.3) L 08/10/20 05:45 Urine Color Yellow (Yellow) 07/11/20 09:30 Urine Turbidity Clear (Clear) 07/11/20 09:30 Urine pH 5.0 (5.0-7.0) 07/11/20 09:30 Ur Specific Miles 1.028 (1.003-1.030) 07/11/20 09:30 Urine Protein <15 mg/dl mg/dL (Negative) 07/11/20 09:30 Urine Glucose (UA) Neg mg/dL (Negative) 07/11/20 09:30 Urine Ketones Neg mg/dL (Negative) 07/11/20 09:30 Urine Blood Neg (Negative) 07/11/20 09:30 Urine Nitrite Neg (Negative) 07/11/20 09:30 Urine Bilirubin Neg (Negative) 07/11/20 09:30 Urine Urobilinogen 2.0 mg/dL (<2.0) 07/11/20 09:30 Ur Leukocyte Esterase Neg (Negative) 07/11/20 09:30 Urine WBC (Auto) 1.0 /HPF (0.0-6.0) 07/11/20 09:30 Urine RBC (Auto) 1.0 /HPF (0.0-6.0) 07/11/20 09:30 U Epithel Cells (Auto) 1.0 /HPF (0-13.0) 07/11/20 09:30 Urine Mucus Few /HPF 07/11/20 09:30 Urine Creatinine 89.2 mg/dL (0.1-20.0) H 07/31/20 16:00 Urine Sodium 26 mmol/L 07/31/20 16:00 Urine Total Protein 108 mg/dL (5-11.8) H 07/31/20 16:00 Vancomycin Trough 27.0 ug/mL (5.0-20.0) H 08/05/20 20:07 Random Vancomycin 7.9 ug/mL (0-40.0) 08/02/20 06:37 Coronavirus (PCR) Positive (Negative) A 07/23/20 Unknown SARS-CoV-2 IgG Ab Reactive (NonReactive) A 07/15/20 14:30 Blood Type O POSITIVE 07/09/20 15:30 Antibody Screen Negative 07/09/20 15:30 Microbiology: Microbiology 08/06/20 23:46 Peripheral/Venous Blood Culture - Final NO GROWTH AFTER 5 DAYS 08/06/20 22:57 Peripheral/Venous Blood Culture - Final NO GROWTH AFTER 5 DAYS - Diagnostic Impressions Diagnostic Impressions: Echocardiogram 07/19/20 13:13 Transthoracic Echocardiogram Indication: CHF BP: 106/58 Conclusions *The left ventricular systolic function is within normal limits. There are no wall motion abnormalities observed. *The estimated ejection fraction is 60-65%. *Normal left ventricular diastolic filling is observed. Findings Procedure Info: The study quality is fair. Left Ventricle: The left ventricular chamber size, wall thickness and systolic function are within normal limits. There are no wall motion abnormalities observed. Ejection fraction is normal. The estimated ejection fraction is 60-65%. Normal left ventricular diastolic filling is observed. Left Atrium: The left atrium is normal in size with no visual thrombus identified. Right Ventricle: The right ventricular chamber size and systolic function are within normal limits. Right Atrium: The right atrium appears normal. Aortic Valve: The aortic valve is trileaflet. The leaflets are thin with normal excursion. There is no aortic stenosis or regurgitation present. Mitral Valve: The mitral valve leaflets are mildly thickened. There is trace of mitral regurgitation. There is no evidence of mitral stenosis. Tricuspid Valve: The tricuspid valve leaflets are normal. There is trace tricuspid regurgitation. The right ventricular systolic pressure is calculated at 14 mmHg. There is no tricuspid stenosis. Pulmonic Valve: The pulmonic valve appears normal. There is mild pulmonic regurgitation. There is no pulmonic stenosis. Pericardium: The pericardium appears normal. Aorta: The aorta appears normal. Pulmonary Artery: The main pulmonary artery appears normal. Venous: The inferior vena cava appears normal in size. There is a greater than 50% respiratory change in the inferior vena cava dimension. Measurements Chambers 2D Name Value Normal Range IVSd (2D) 1.08 cm (0.6 - 1.1) LVPWd (2D) 0.91 cm (0.6 - 1.1) LVIDd (2D) 4.61 cm (3.7 - 5.6) LVIDs (2D) 3.12 cm (2 - 3.8) LV FS (2D) 32.38 % - EF Teichholz (2D) 60.72 % - Ao root diameter (2D) 3.01 cm (2 - 3.7) Volumes/Mass Name Value Normal Range LA ESV SP 4CH (A/L) 57.18 ml - LA ESV SP 2CH (A/L) 62.63 ml - LA ESV BP (A/L) 60.68 ml - LA ESV BP (A/L) index 28.22 ml/m2 - LA ESV SP 4CH (MOD) 51.17 ml - LA ESV SP 2CH (MOD) 57.8 ml - LA ESV BP (MOD) 54.73 ml - LA ESV BP (MOD) index 25.45 ml/m2 - LV EDV SP 4CH (MOD) 115.34 ml - LV ESV SP 4CH (MOD) 43.26 ml - EF SP 4CH (MOD) 62.5 % - LV EDV SP 2CH (MOD) 43.71 ml - LV ESV SP 2CH (MOD) 17.14 ml - EF SP 2CH (MOD) 60.79 % - LV EDV BP 73.15 ml - LV ESV BP 27.92 ml - BP EF (MOD) 61.83 % - Diastolic/Systolic Function Name Value Normal Range MV E-wave Vmax 0.88 m/sec - MV deceleration time 157.66 msec - MV A-wave Vmax 0.91 m/sec - MV E:A ratio 0.96 ratio - Aortic Valve Name Value Normal Range AV Vmax 1.54 m/sec - AV VTI 31.46 cm - AV peak gradient 9.51 mmHg - AV mean gradient 5.1 mmHg - LVOT diameter 1.95 cm - LVOT Vmax 1.21 m/sec - LVOT VTI 27.59 cm - LVOT peak gradient 5.83 mmHg - LVOT mean gradient 3.3 mmHg - SV LVOT 82.76 ml - SMITH (continuity Vmax) 2.35 cm2 - SMITH (continuity VTI) 2.63 cm2 - Ascending Ao 2.94 cm - Tricuspid Valve Name Value Normal Range TV E-wave Vmax 0.49 m/sec - TR Vmax 1.72 m/sec - TR peak gradient 11.86 mmHg - RAP 3 mmHg - RVSP 14 mmHg - IVC diameter 1.91 cm (1.2 - 2.3) Pulmonic Valve/Qp:Qs Name Value Normal Range PV Vmax 0.94 m/sec - PV peak gradient 3.54 mmHg - WI end-diastolic Vmax 0.54 m/sec - RVOT Vmax 0.68 m/sec - RVOT VTI 13.18 cm - RVOT peak gradient 1.82 mmHg - PV acceleration time 117.98 msec - Te[place]ada/IV: Voiding Method Indwelling Catheter IV Catheter Type [Left Upper PICC Line arm] IV Catheter Type [Right INT / Saline Lock Forearm] IV Catheter Type [Left Wrist] INT / Saline Lock IV Catheter Type [Left Hand] Peripheral IV Active Medications - Current Medications Current Medications: Generic Name Dose Route Start Last Admin Trade Name Freq PRN Reason Stop Dose Admin Acetaminophen 650 mg 07/06/20 13:39 08/09/20 18:16 Tylenol PO 650 mg Q4H PRN Administration Pain MILD(1-3)/Fever >100.5/WILLETT Albuterol/Ipratropium 1 ampul 08/05/20 11:33 Duoneb *Not For Prn Use* IH TIDRT PRN Overdose Alprazolam 0.5 mg 07/07/20 12:28 07/27/20 03:15 Xanax PO 0.5 mg Q8H PRN Administration Anxiety Lipase/Protease/Amylase 1 each 07/08/20 14:50 Pancreaze 10,500 Unit FEEDTUBE PRN PRN For Clogged Feeding Tube Arformoterol Tartrate 15 mcg 07/07/20 09:15 08/11/20 20:00 Broagapitoa Efrainu IH Not Given Q12HRT [facility] Ascorbic Acid 500 mg 07/08/20 22:00 08/12/20 01:45 Vitamin C PO Not Given BID [facility] Aspirin 81 mg 07/06/20 14:00 08/11/20 09:24 Baby Aspirin PO 81 mg QDAY ROMMEL Administration Budesonide 0.5 mg 07/07/20 09:15 08/11/20 20:00 Pulmicort IH Not Given Q12HRT [facility] Chlordiazepoxide HCl 75 mg 07/30/20 13:00 08/12/20 06:03 Librium PO Not Given Q8H [facility] Dextrose 50 ml 07/12/20 16:58 Dextrose 50% In Water (25gm) 50 Ml Syringe IV Q30MIN PRN Hypoglycemia Protocol Docusate Sodium 100 mg 07/16/20 22:00 08/12/20 01:24 Colace PO Not Given BID [facility] Fentanyl 50 mcg 07/08/20 13:16 08/09/20 18:16 Sublimaze IV 50 mcg Q10MIN PRN Administration ANALGESIA Fentanyl 50 mcg 08/08/20 15:24 Fentanyl 100 Mcg/2 Ml Inj IV Q10MIN PRN ANALGESIA Gabapentin 600 mg 07/25/20 14:00 08/12/20 06:07 Gabapentin PO Not Given Q8HR [facility] Hydrophilic Ointment 1 applic 07/08/20 13:16 07/22/20 23:01 Vaseline Lip Therapy TP 1 applic Q2HR PRN Administration Dry Lips Hydroxychloroquine Sulfate 200 mg 07/07/20 10:00 08/11/20 09:26 Plaquenil PO 200 mg QDAY ROMMEL Administration Midazolam HCl 100 mg/ Sodium 100 mls @ 2 mls/hr 07/08/20 15:00 08/12/20 01:21 Chloride IV 5 mg/hr TITR ROMMEL 5 mls/hr Administration Protocol 2 MG/HR Sodium Chloride 500 mls @ 999 mls/hr 07/15/20 15:00 08/10/20 07:30 Nacl 0.9% 500 Ml IV 999 mls/hr DIRECT ROMMEL Administration Norepinephrine 4 mg in 250 mls @ 7.5 mls/hr 07/27/20 05:00 08/12/20 07:08 Levophed Drip 4 Mg/Ns 250 Ml IV 15 mcg/min TITR ROMMEL 56.25 mls/hr Titration Protocol 2 MCG/MIN Vasopressin 20 unit/ Sodium 101 mls @ 9.09 mls/hr 07/30/20 13:00 08/10/20 19:30 Chloride IV 0.03 units/min TITR ROMMEL 9.09 mls/hr Administration Protocol 0.03 UNITS/MIN Phenylephrine HCl 100 mg/ 100 mls @ 3 mls/hr 07/30/20 15:00 08/04/20 10:08 Sodium Chloride IV 0 mcg/min TITR ROMMEL 0 mls/hr Titration Protocol 50 MCG/MIN Dopamine HCl/Dextrose 800 mg in 250 mls @ 3.679 mls/hr 07/31/20 22:00 Intropin Drip 800 Mg/D5w 250 Ml IV TITR ROMMEL Protocol 2 MCG/KG/MIN Heparin Sodium/Sodium Chloride 25,000 unit in 500 mls @ 30 mls/hr 08/05/20 13:00 08/12/20 06:57 Heparin/ 0.45% Nacl-25,000 Unit/500 Ml IV Infused TITR ROMMEL Titration Protocol 1,500 UNITS/HR Propofol 500 mg in 50 mls @ 2.946 mls/hr 08/05/20 13:00 08/12/20 08:13 Propofol IV 20 mcg/kg/min TITR ROMMEL 11.784 mls/hr Administration Protocol 5 MCG/KG/MIN Fentanyl Citrate 2,000 mcg in 100 mls @ 5.75 mls/hr 08/08/20 16:00 08/12/20 08:17 Fentanyl Drip Premix IV 2 mcg/kg/hr TITR ROMMEL 11.5 mls/hr Administration Protocol 1 MCG/KG/HR Sodium Chloride 500 mls @ 250 mls/hr 08/10/20 20:00 08/10/20 08:00 Nacl 0.9% 500 Ml IV 250 mls/hr DIRECT ROMMEL Administration Insulin Glargine 20 units 08/08/20 10:00 08/11/20 09:26 Lantus SUB-Q Not Given DAILY [facility] Insulin Human Regular 0 unit 08/01/20 00:00 08/12/20 06:07 Humulin R SUB-Q Not Given Q6HR [facility] Protocol Lansoprazole 30 mg 07/10/20 10:00 08/11/20 09:25 Lansoprazole 30 Mg Solutab FEEDTUBE 30 mg QDAY [facility] Administration Methylprednisolone Sodium Succinate 40 mg 07/22/20 14:00 08/12/20 06:08 Solu-Medrol IV 40 mg Q8H ROMMEL Administration Metoclopramide HCl 5 mg 08/05/20 12:00 08/12/20 06:09 Reglan IV 5 mg Q6HR [facility] Administration Multi-Ingred Cream/Lotion/Oil/Oint 1 applic 07/08/20 13:16 Artificial Tears Ophth Oint OU Q4HR PRN Dry Eye(s) Ondansetron HCl 4 mg 07/06/20 13:39 08/11/20 09:26 Zofran IV 4 mg Q8H PRN Administration Nausea And Vomiting Polyethylene Glycol 17 gm 07/29/20 12:00 08/11/20 10:05 Miralax 3350 PO Not Given DAILY [facility] Quetiapine Fumarate 200 mg 07/25/20 22:00 08/12/20 01:23 Seroquel PO Not Given BID ROMMEL Quetiapine Fumarate 100 mg 07/25/20 22:00 08/11/20 22:05 Seroquel PO Not Given BID ROMMEL Simple Syrup 15 ml 07/08/20 14:50 Simple Syrup FEEDTUBE PRN PRN Hypoglycemia Simple Syrup 30 ml 07/08/20 14:50 Simple Syrup FEEDTUBE PRN PRN Hypoglycemia Sodium Bicarbonate 325 mg 07/08/20 14:50 Sodium Bicarbonate FEEDTUBE PRN PRN For Clogged Feeding Tube Sodium Chloride 10 ml 07/06/20 14:00 08/11/20 22:05 Sodium Chloride Flush Syringe 10 Ml IV 10 ml BID ROMMEL Administration Sodium Chloride 10 ml 07/06/20 13:39 07/26/20 06:31 Sodium Chloride Flush Syringe 10 Ml IV 10 ml PRN PRN Administration LINE FLUSH Venlafaxine HCl 37.5 mg 07/07/20 10:00 08/11/20 11:23 Effexor PO 37.5 mg DAILY ROMMEL Administration Zinc Sulfate 220 mg 07/08/20 22:00 08/12/20 01:46 Zinc Sulfate PO Not Given BID ROMMEL Nutrition/Malnutrition Assess - Dietary Evaluation Nutrition/Malnutrition Findings: Nutrition Notes Start: 07/08/20 14:02 Freq: Status: Active Protocol: Document 08/09/20 11:18 EN (Rec: 08/09/20 11:25 EN [email or web address]) Co-Sign 08/09/20 11:18 LM Nutrition Notes Initial or Follow up Reassessment Current Diagnosis Hypertension,Heart Failure Other Pertinent Diagnosis Acute respiratory failure, COVID(+), GERD, Lupus, Anemia Current Diet Vital AF 1.2 at 55 mL/hr (goal rate) Labs/Tests Reviewed Pertinent Medications Fentanyl Reglan Propofol at 2.946 ml/hr (78 kcal) Height 5 ft 5 in Weight 115 kg [place] Body Weight (kg) 56.81 BMI 42.2 Weight Status Morbidly Obese Subjective/Other Information F/u for TF tolerance and Na labs. No new labs. Per RN, TF stopped d/t gastric residuals. RN also reports emesis yesterday d/t pt being agitated. Percent of energy/protein needs met: 0%/0% Burn Absent Trauma Absent GI Symptoms Vomiting Current % PO Negligible Minimum of two criteria No physical signs of malnutrition #1 Nutrition Diagnosis Inadequate oral intake Diagnosis Progress(for reassessment Continues documentation) Is patient on ventilator? Yes Is Patient Ambulatory and/or Out of Bed No REE-([facility]-confined to bed) 2140.284 Kcal/Kg value to use for calculation 17 Approximate Energy Requirements Using 1955 kcal/Kg Calculation Used for Recommendations Kcal/kg Additional Notes Pro: greater than 114 g (>2 g/ kg IBW) Fluid: 1ml/kcal or per MD Nutrition Intervention Change Diet Order: Restart TF when medically feasible Nutrition Support: Vital AF at 55 ml/hr Flush 75 ml q4h. For hypernatremia, flush 200ml q4h Kcal 1,584 Protein (gm) 99 Fluid (mL) 1,070 Goal #1 TF restart/tolerance Goal #2 Meet at least 80% of protein and energy needs via TF Anticipated Discharge Needs: Cannot determine at this time Follow-Up By: 08/12/20 Additional Comments F/u for TF restart/tolerance and Na labs
--- NOTE | 2020-08-12 08:44 | XRay Report ---
XR chest 1V ap INDICATION / CLINICAL INFORMATION: PTX, vent. COMPARISON: Radiograph from yesterday. FINDINGS: SUPPORT DEVICES: Unchanged. HEART / MEDIASTINUM: Unchanged. LUNGS / PLEURA: Improved aeration of the lung parenchyma with decreased improving pulmonary opacities . No definite pneumothorax. ADDITIONAL FINDINGS: No significant additional findings. IMPRESSION: 1. Improving airspace disease. Signer Name: Guilherme Morales MD Signed: 08/12/2020 8:39 AM Workstation Name: [id number]
--- NOTE | 2020-08-12 08:45 | Progress Note ---
Subjective Date of service: 08/12/20 Principal diagnosis: Ac hypoxemic resp failure; PNA; COVID-19 infxn; SLE; Asthma exacerbation Interval history: ETT tube exchange Called in by electric deicer assembler to the unit due to ETT leak. Patient with the history of COVID-19, intubated, with bilateral pneumothorax on mechanical ventilation has audible leak from the mouth despite confirmed good tube position and fully inflated not compromised cuff. Discussed the possibility of tracheomalasia. SpO2 progressively got worse, to the low 70s this AM. Patient paralyzed with Zemuron 50mg, with Glidescope assistance ETT exchanged using TAPP's tube exchanger to 9.0mm endotracheal tube. Cuff inflated, no audible leak. SpO2 temporarily went to 50%, came back to 71%. Tube position confirmed by auscultation. Taped to 22 cm to the teeth. No complications Objective - Constitutional Vitals: Vital Signs - 12hr 08/11/20 08/11/20 08/11/20 20:46 21:00 21:16 Temperature Pulse Rate 89 89 89 Pulse Rate [ From Monitor] Pulse Rate [ Right Radial] Respiratory 14 29 H 20 Rate Blood Pressure 108/56 101/54 102/53 O2 Sat by Pulse 95 95 94 Oximetry 08/11/20 08/11/20 08/11/20 21:30 21:46 22:00 Temperature Pulse Rate 88 89 89 Pulse Rate [ From Monitor] Pulse Rate [ Right Radial] Respiratory 21 23 26 H Rate Blood Pressure 101/52 101/52 99/45 O2 Sat by Pulse 94 94 92 Oximetry 08/11/20 08/11/20 08/11/20 22:16 22:30 22:46 Temperature Pulse Rate 89 89 87 Pulse Rate [ From Monitor] Pulse Rate [ Right Radial] Respiratory 23 24 16 Rate Blood Pressure 107/57 100/51 103/50 O2 Sat by Pulse 93 92 92 Oximetry 08/11/20 08/11/20 08/11/20 22:48 23:00 23:16 Temperature Pulse Rate 87 87 87 Pulse Rate [ From Monitor] Pulse Rate [ Right Radial] Respiratory 15 16 21 Rate Blood Pressure 109/56 109/56 102/60 O2 Sat by Pulse 92 92 93 Oximetry 08/11/20 08/11/20 08/11/20 23:30 23:46 23:56 Temperature Pulse Rate 87 87 86 Pulse Rate [ From Monitor] Pulse Rate [ Right Radial] Respiratory 19 21 Rate Blood Pressure 93/60 94/58 99/60 O2 Sat by Pulse 94 94 94 Oximetry 08/12/20 08/12/20 08/12/20 00:00 00:16 00:30 Temperature 93.9 F L Pulse Rate 78 86 85 Pulse Rate [ 88 From Monitor] Pulse Rate [ Right Radial] Respiratory 24 21 19 Rate Blood Pressure 99/60 97/58 98/56 O2 Sat by Pulse 92 95 95 Oximetry 08/12/20 08/12/20 08/12/20 00:46 01:00 01:16 Temperature Pulse Rate 87 86 85 Pulse Rate [ From Monitor] Pulse Rate [ Right Radial] Respiratory 17 16 21 Rate Blood Pressure 98/56 112/60 116/56 O2 Sat by Pulse 95 95 95 Oximetry 08/12/20 08/12/20 08/12/20 01:30 01:46 02:00 Temperature Pulse Rate 86 87 88 Pulse Rate [ From Monitor] Pulse Rate [ Right Radial] Respiratory 26 H 17 14 Rate Blood Pressure 117/62 115/55 114/54 O2 Sat by Pulse 95 95 94 Oximetry 08/12/20 08/12/20 08/12/20 02:16 02:30 02:46 Temperature Pulse Rate 89 91 H 92 H Pulse Rate [ From Monitor] Pulse Rate [ Right Radial] Respiratory 19 16 16 Rate Blood Pressure 121/57 115/58 113/56 O2 Sat by Pulse 94 93 92 Oximetry 08/12/20 08/12/20 08/12/20 03:00 03:16 03:30 Temperature Pulse Rate 92 H 94 H 96 H Pulse Rate [ From Monitor] Pulse Rate [ Right Radial] Respiratory 14 16 12 Rate Blood Pressure 122/56 110/54 124/51 O2 Sat by Pulse 92 91 90 Oximetry 08/12/20 08/12/20 08/12/20 03:46 03:59 04:00 Temperature 96.6 F L Pulse Rate 98 H 98 H 98 H Pulse Rate [ 108 H From Monitor] Pulse Rate [ 108 H Right Radial] Respiratory 20 24 Rate Blood Pressure 114/56 118/56 118/56 O2 Sat by Pulse 91 90 92 Oximetry 08/12/20 08/12/20 08/12/20 04:16 04:30 04:46 Temperature Pulse Rate 99 H 100 H 101 H Pulse Rate [ From Monitor] Pulse Rate [ Right Radial] Respiratory 18 16 18 Rate Blood Pressure 112/53 103/49 113/47 O2 Sat by Pulse 89 88 88 Oximetry 08/12/20 08/12/20 08/12/20 05:00 05:16 05:30 Temperature Pulse Rate 103 H 104 H 102 H Pulse Rate [ From Monitor] Pulse Rate [ Right Radial] Respiratory 21 26 H 17 Rate Blood Pressure 105/48 106/48 106/48 O2 Sat by Pulse 86 85 85 Oximetry 08/12/20 08/12/20 05:46 06:00 Temperature Pulse Rate 102 H 106 H Pulse Rate [ From Monitor] Pulse Rate [ Right Radial] Respiratory 19 21 Rate Blood Pressure 91/43 94/49 O2 Sat by Pulse 85 84 Oximetry - Labs CBC & Chem 7: 08/11/20 06:45 08/11/20 06:45 Labs: Abnormal lab results 08/11/20 08/11/20 08/11/20 Range/Units 08:50 11:56 17:45 Heparin Anti-Xa Level 0.28 L 0.72 H (0.3-0.7) U.I./ml ABG pH (7.350-7.450) pH Units ABG pO2 (80.0-90.0) mm Hg ABG O2 Saturation (95.0-99.0) % ABG Base Excess (-2.0-3.0) mmol/L ABG Hemoglobin (12.0-16.0) gm/dl Oxyhemoglobin (95.0-99.0) % POC Glucose 108 H (70-105) mg/dL 08/11/20 08/11/20 08/12/20 Range/Units 17:50 23:58 03:10 Heparin Anti-Xa Level (0.3-0.7) U.I./ml ABG pH 7.135 L* (7.350-7.450) pH Units ABG pO2 70.2 L (80.0-90.0) mm Hg ABG O2 Saturation 91.6 L (95.0-99.0) % ABG Base Excess -3.8 L (-2.0-3.0) mmol/L ABG Hemoglobin 7.8 L (12.0-16.0) gm/dl Oxyhemoglobin 88.3 L (95.0-99.0) % POC Glucose 119 H 149 H (70-105) mg/dL 08/12/20 08/12/20 Range/Units 04:58 05:20 Heparin Anti-Xa Level 1.27 H (0.3-0.7) U.I./ml ABG pH (7.350-7.450) pH Units ABG pO2 (80.0-90.0) mm Hg ABG O2 Saturation (95.0-99.0) % ABG Base Excess (-2.0-3.0) mmol/L ABG Hemoglobin (12.0-16.0) gm/dl Oxyhemoglobin (95.0-99.0) % POC Glucose 147 H (70-105) mg/dL
--- NOTE | 2020-08-12 09:20 | XRay Report ---
XR chest 1V ap INDICATION / CLINICAL INFORMATION: ETT placement. COMPARISON: Radiograph from earlier same day. FINDINGS: SUPPORT DEVICES: Unchanged. Endotracheal tube terminates appropriately at the level of the clavicular heads. HEART / MEDIASTINUM: Unchanged. LUNGS / PLEURA: Lung parenchyma is not significantly changed with diffuse parenchymal opacities. No pneumothorax. ADDITIONAL FINDINGS: Unchanged stomach dilation. IMPRESSION: 1. No significant interval change. Signer Name: Guilherme Morales MD Signed: 08/12/2020 9:16 AM Workstation Name: [id number]
[2020-08-12] MEDS ORDERED: ROCURONIUM 50 MG/5 ML INJ IV ONE (10:25)
[2020-08-12] MEDS ORDERED: SODIUM CHLORIDE 0.9% IRR 1,000 ML BOTTLE IR ONE (12:00)
[2020-08-12] MEDS ORDERED: SODIUM CHLORIDE 0.9% 1000 ML 1,000 ML ONE (12:36)
[2020-08-12] MEDS: VASOPRESSIN 20 UNIT in SODIUM CHLORIDE 0.9% 100 ML IV SCH (12:57)
--- NOTE | 2020-08-12 13:12 | Progress Note ---
Assessment and Plan Acute hypoxemic respiratory failure, now on MVS Bilateral pneumonia, left greater than right lungs. COVID-19 infection. History of congestive heart failure. History of lupus erythematosus. Leukocytosis. Tobacco use disorder. Acute asthma exacerbation. History of hypertension. Obesity Subcutaneous Emphysema Bilateral Pneumothoraces - ETT changed to a # 9 but leak is persistent and O2 sat's in 40's - despite continuous cricoid pressure and seal of leak thre is no improvement in oxygenation - emergent bedside bronchoscopy done to confirm positioning and look for anatomical tear unrewarding as edematous and erythematous tissue obscured adequate examination - I called her NOK to express the grave situation and imminent cardiac arrest and we were told to keep her a full CODE - continue care as below otherwise; - keep NGT to LIS - wean Vasopressors for target MAP > 65 mmHg - continue full dose anticoagulation with IV Heparin - continue chest tubes to continuous suction (surgery assistance appreciated) - continue sedation and target RASS -2 to -3 acutely - repeat ABG in am - AB's per ID recommendations - prognosis grave especially neurologic-rai - continue systemic steroids - continue to wean supplemental oxygen for target O2 sat's > 92% - continue low dose SSI - continue Seroquel 300 mg p.o. bid - continue airborne and contact isolation - continue Zinc & Vit C supplementaion - complete Remdesivir - de-escalate AB's per ID rec's - continue systemic steroids for Asthma / severe COVID infection - continue Daily SAT and SBT assessment as tolerated - VAP bundle addressed - continue lung protective strategies - continue bronchodilators with pulmonary hygiene per RT - wean per pulmonary driven protocols otherwise - accuchecks with glycemic control per SSI (While critically ill target blood glucose of 140-180 mg/dL; avoid hypoglycemia) - sedation prn for target RASS -1 to -2 - avoid nephrotoxins, renally dose all medications - continue to avoid benzodiazepine's, reduce the possibility of delirium - prn analgesia per CPOT score - Maintenance of sleep-wake cycle, avoid delirium - continue enteral nutritional support at goal rate as tolerated - G.I. & VTE prophylaxis - PT/OT/ROM exercises - continue mobility protocols for pressure ulcer prophylaxis - Monitor hemodynamics closely - continue other care per attending / other consultants - discharge planning ongoing concurrently .... Re-evaluate in am & prn CONDITION: CRITICAL PROGNOSIS: GUARDED CODE STATUS: FULL CODE The high probability of a clinically significant, sudden or life-threatening deterioration of the [respiratory, cardiovascular & neurologic] system(s) required my full and direct attention, intervention and personal management. The aggregate critical care time was [55] minutes without overlap. Time includes spent on; [x] Data Review and interpretation [x] Patient assessment and monitoring of vital signs [x] Documentation [x] Medication orders and management Subjective Date of service: 08/12/20 Principal diagnosis: Ac hypoxemic resp failure; PNA; COVID-19 infxn; SLE; Asthma exacerbation Interval history: Patient is seen today for: Acute hypoxemic respiratory failure; Bilateral pneumonia; COVID-19 infection; H/O CHF; SLE; Acute asthma exacerbation. HTN; Obesity Seen and examined at bedside; 24hour events reviewed; nursing and respiratory care staff consulted; no adverse overnight events reported to me; resting peacefully in bed; remains on MVS; busy night; very busy night; tracheomalacia causing severe air leak; ventilation and oxygenation conmpromised; ETT changed to a # 9 but still with severe leak; OP2 sats have been consistently in the 60's most of the morning and now in the 40's despite cricoid pressure to attempt sealing the leak Objective Vital Signs - 12hr 08/12/20 08/12/20 08/12/20 01:16 01:30 01:46 Temperature Pulse Rate 85 86 87 Pulse Rate [ From Monitor] Pulse Rate [ Right Radial] Respiratory 21 26 H 17 Rate Blood Pressure 116/56 117/62 115/55 O2 Sat by Pulse 95 95 95 Oximetry 08/12/20 08/12/20 08/12/20 02:00 02:16 02:30 Temperature Pulse Rate 88 89 91 H Pulse Rate [ From Monitor] Pulse Rate [ Right Radial] Respiratory 14 19 16 Rate Blood Pressure 114/54 121/57 115/58 O2 Sat by Pulse 94 94 93 Oximetry 08/12/20 08/12/20 08/12/20 02:46 03:00 03:16 Temperature Pulse Rate 92 H 92 H 94 H Pulse Rate [ From Monitor] Pulse Rate [ Right Radial] Respiratory 16 14 16 Rate Blood Pressure 113/56 122/56 110/54 O2 Sat by Pulse 92 92 91 Oximetry 08/12/20 08/12/20 08/12/20 03:30 03:46 03:59 Temperature Pulse Rate 96 H 98 H 98 H Pulse Rate [ From Monitor] Pulse Rate [ Right Radial] Respiratory 12 20 Rate Blood Pressure 124/51 114/56 118/56 O2 Sat by Pulse 90 91 90 Oximetry 08/12/20 08/12/20 08/12/20 04:00 04:16 04:30 Temperature 96.6 F L Pulse Rate 98 H 99 H 100 H Pulse Rate [ 108 H From Monitor] Pulse Rate [ 108 H Right Radial] Respiratory 24 18 16 Rate Blood Pressure 118/56 112/53 103/49 O2 Sat by Pulse 92 89 88 Oximetry 08/12/20 08/12/20 08/12/20 04:46 05:00 05:16 Temperature Pulse Rate 101 H 103 H 104 H Pulse Rate [ From Monitor] Pulse Rate [ Right Radial] Respiratory 18 21 26 H Rate Blood Pressure 113/47 105/48 106/48 O2 Sat by Pulse 88 86 85 Oximetry 08/12/20 08/12/20 08/12/20 05:30 05:46 06:00 Temperature Pulse Rate 102 H 102 H 106 H Pulse Rate [ From Monitor] Pulse Rate [ Right Radial] Respiratory 17 19 21 Rate Blood Pressure 106/48 91/43 94/49 O2 Sat by Pulse 85 85 84 Oximetry 08/12/20 08/12/20 08/12/20 06:16 06:30 06:46 Temperature Pulse Rate 108 H 110 H 112 H Pulse Rate [ From Monitor] Pulse Rate [ Right Radial] Respiratory 17 16 26 H Rate Blood Pressure 96/54 100/49 105/48 O2 Sat by Pulse 83 L 80 L 76 L Oximetry 08/12/20 08/12/20 08/12/20 07:00 07:16 07:30 Temperature Pulse Rate 113 H 117 H 117 H Pulse Rate [ From Monitor] Pulse Rate [ Right Radial] Respiratory 18 24 13 Rate Blood Pressure 99/53 103/51 98/51 O2 Sat by Pulse 73 L 72 L 71 L Oximetry 08/12/20 08/12/20 08/12/20 07:46 08:00 08:16 Temperature 98.0 F Pulse Rate 119 H 121 H 124 H Pulse Rate [ 130 H From Monitor] Pulse Rate [ 130 H Right Radial] Respiratory 27 H 19 22 Rate Blood Pressure 112/58 114/59 109/58 O2 Sat by Pulse 71 L 73 L 73 L Oximetry 12/08/12/20 08/12/20 08:30 08:46 09:00 Temperature Pulse Rate 130 H 136 H 138 H Pulse Rate [ From Monitor] Pulse Rate [ Right Radial] Respiratory 24 29 H 29 H Rate Blood Pressure 107/59 107/59 120/75 O2 Sat by Pulse 76 L 78 L 75 L Oximetry 08/12/20 08/12/20 09:16 09:30 Temperature Pulse Rate 135 H 135 H Pulse Rate [ From Monitor] Pulse Rate [ Right Radial] Respiratory 30 H 21 Rate Blood Pressure 120/75 112/68 O2 Sat by Pulse 74 L 74 L Oximetry Constitutional: appears uncomfortable, other (middle aged obese female with mildly increased respiratory effort at rest on MVS) Eyes: non-icteric ENT: oropharynx moist, other (ETT 24cm YANET) Neck: supple, no lymphadenopathy, no JVD Effort: mildly labored Ascultation: Bilateral: diminished breath sounds, rhonchi, other (two R. chest tubes and 1 on left (leaks on right side)) Percussion: Bilateral: not dull Cardiovascular: regular rate and rhythm, other (S1,S2) Gastrointestinal: normoactive bowel sounds, soft, non-tender, non-distended Integumentary: other (+ Sub-Q emphysema to neck and face + upper chest) Extremities: no cyanosis, no edema, pulses normal, no ischemia or petechiae Neurologic: pupils equal and round, other (sedated) Psychiatric: other (unable to assess re: AMS / sedation) CBC and BMP: 08/11/20 06:45 08/11/20 06:45 ABG, PT/INR, D-dimer: ABG POC ABG pCO2 51.3 mmHg (32.0-48.0) H 08/10/20 05:45 POC ABG pO2 100.6 mmHg (83-108) 08/10/20 05:45 POC ABG HCO3 27.9 08/10/20 05:45 PT/INR, D-dimer PT 15.4 Sec. (12.2-14.9) H 08/05/20 13:35 INR 1.22 (0.87-1.13) H 08/05/20 13:35 D-Dimer 4748.32 ng/mlDDU (0-234) H 08/05/20 13:35 Abnormal lab findings: Abnormal Labs 07/06/20 07/06/20 07/07/20 05:24 17:16 04:50 WBC 13.5 H 12.7 H RBC Hgb Hct MCH MCHC RDW Plt Count Lymph % (Auto) Lymph # (Auto) Seg Neutrophils % Seg Neuts % (Manual) 86.0 H 87.0 H Lymphocytes % (Manual) 6.0 L 9.0 L Eosinophils % (Manual) Nucleated RBC % Seg Neutrophils # Seg Neutrophils # Man 11.6 H 11.0 H Lymphocytes # (Manual) 0.8 L 1.1 L Eosinophils # (Manual) PT INR D-Dimer Heparin Anti-Xa Level ABG pH POC ABG pCO2 POC ABG pO2 ABG pO2 ABG HCO3 ABG O2 Saturation ABG Base Excess ABG Hemoglobin ABG Oxyhemoglobin ABG Sodium ABG Potassium ABG Chloride ABG Glucose Oxyhemoglobin Carboxyhemoglobin Sodium Potassium Chloride Carbon Dioxide BUN Creatinine Glucose POC Glucose Lactic Acid Calcium Ferritin AST ALT Lactate Dehydrogenase 242 H C-Reactive Protein 7.30 H Total Protein Albumin Triglycerides Arterial Blood Glucose Arterial Blood Ionized Calcium Urine Creatinine Urine Total Protein Vancomycin Trough Coronavirus (PCR) SARS-CoV-2 IgG Ab 07/07/20 07/07/20 07/07/20 04:50 14:22 14:22 WBC RBC Hgb Hct MCH MCHC RDW Plt Count Lymph % (Auto) Lymph # (Auto) Seg Neutrophils % Seg Neuts % (Manual) Lymphocytes % (Manual) Eosinophils % (Manual) Nucleated RBC % Seg Neutrophils # Seg Neutrophils # Man Lymphocytes # (Manual) Eosinophils # (Manual) PT INR D-Dimer Heparin Anti-Xa Level ABG pH POC ABG pCO2 POC ABG pO2 ABG pO2 ABG HCO3 ABG O2 Saturation ABG Base Excess ABG Hemoglobin ABG Oxyhemoglobin ABG Sodium ABG Potassium ABG Chloride ABG Glucose Oxyhemoglobin Carboxyhemoglobin Sodium Potassium Chloride Carbon Dioxide BUN 18 H Creatinine Glucose 138 H POC Glucose Lactic Acid Calcium Ferritin 228.2 H AST ALT Lactate Dehydrogenase 277 H C-Reactive Protein Total Protein 5.9 L Albumin 3.4 L Triglycerides Arterial Blood Glucose Arterial Blood Ionized Calcium Urine Creatinine Urine Total Protein Vancomycin Trough Coronavirus (PCR) SARS-CoV-2 IgG Ab 07/08/20 07/08/20 07/08/20 11:18 12:57 16:13 WBC RBC Hgb Hct MCH MCHC RDW Plt Count Lymph % (Auto) Lymph # (Auto) Seg Neutrophils % Seg Neuts % (Manual) Lymphocytes % (Manual) Eosinophils % (Manual) Nucleated RBC % Seg Neutrophils # Seg Neutrophils # Man Lymphocytes # (Manual) Eosinophils # (Manual) PT INR D-Dimer Heparin Anti-Xa Level ABG pH POC ABG pCO2 POC ABG pO2 ABG pO2 39.3 L* ABG HCO3 ABG O2 Saturation 76.8 L ABG Base Excess ABG Hemoglobin ABG Oxyhemoglobin ABG Sodium ABG Potassium ABG Chloride ABG Glucose Oxyhemoglobin 75.3 L Carboxyhemoglobin Sodium Potassium Chloride Carbon Dioxide 20 L D BUN Creatinine Glucose 135 H POC Glucose 106 H Lactic Acid Calcium 8.0 L Ferritin AST ALT Lactate Dehydrogenase C-Reactive Protein Total Protein Albumin Triglycerides Arterial Blood Glucose Arterial Blood Ionized Calcium Urine Creatinine Urine Total Protein Vancomycin Trough Coronavirus (PCR) SARS-CoV-2 IgG Ab 07/08/20 07/08/20 07/09/20 17:04 18:45 04:00 WBC 15.6 H RBC Hgb Hct MCH MCHC RDW Plt Count Lymph % (Auto) 4.7 L Lymph # (Auto) 0.7 L Seg Neutrophils % Seg Neuts % (Manual) Lymphocytes % (Manual) Eosinophils % (Manual) Nucleated RBC % Seg Neutrophils # 14.2 H Seg Neutrophils # Man Lymphocytes # (Manual) Eosinophils # (Manual) PT INR D-Dimer Heparin Anti-Xa Level ABG pH POC ABG pCO2 POC ABG pO2 ABG pO2 181.8 H ABG HCO3 ABG O2 Saturation 99.1 H ABG Base Excess ABG Hemoglobin 11.4 L ABG Oxyhemoglobin ABG Sodium ABG Potassium ABG Chloride ABG Glucose Oxyhemoglobin Carboxyhemoglobin Sodium Potassium Chloride Carbon Dioxide BUN Creatinine Glucose POC Glucose 117 H Lactic Acid Calcium Ferritin AST ALT Lactate Dehydrogenase C-Reactive Protein Total Protein Albumin Triglycerides Arterial Blood Glucose Arterial Blood Ionized Calcium Urine Creatinine Urine Total Protein Vancomycin Trough Coronavirus (PCR) SARS-CoV-2 IgG Ab 07/09/20 07/09/20 07/09/20 04:00 04:00 04:49 WBC RBC Hgb Hct MCH MCHC RDW Plt Count Lymph % (Auto) Lymph # (Auto) Seg Neutrophils % Seg Neuts % (Manual) Lymphocytes % (Manual) Eosinophils % (Manual) Nucleated RBC % Seg Neutrophils # Seg Neutrophils # Man Lymphocytes # (Manual) Eosinophils # (Manual) PT INR D-Dimer Heparin Anti-Xa Level ABG pH POC ABG pCO2 POC ABG pO2 ABG pO2 ABG HCO3 26.2 H ABG O2 Saturation ABG Base Excess ABG Hemoglobin 11.2 L ABG Oxyhemoglobin ABG Sodium ABG Potassium ABG Chloride ABG Glucose Oxyhemoglobin 94.9 L Carboxyhemoglobin Sodium Potassium Chloride Carbon Dioxide BUN Creatinine Glucose 158 H POC Glucose Lactic Acid Calcium 8.2 L Ferritin 320.0 H AST ALT Lactate Dehydrogenase 391 H C-Reactive Protein 9.50 H Total Protein 5.9 L Albumin 3.2 L Triglycerides Arterial Blood Glucose Arterial Blood Ionized Calcium Urine Creatinine Urine Total Protein Vancomycin Trough Coronavirus (PCR) SARS-CoV-2 IgG Ab 07/09/20 07/09/20 07/09/20 11:56 17:49 23:39 WBC RBC Hgb Hct MCH MCHC RDW Plt Count Lymph % (Auto) Lymph # (Auto) Seg Neutrophils % Seg Neuts % (Manual) Lymphocytes % (Manual) Eosinophils % (Manual) Nucleated RBC % Seg Neutrophils # Seg Neutrophils # Man Lymphocytes # (Manual) Eosinophils # (Manual) PT INR D-Dimer Heparin Anti-Xa Level ABG pH POC ABG pCO2 POC ABG pO2 ABG pO2 ABG HCO3 ABG O2 Saturation ABG Base Excess ABG Hemoglobin ABG Oxyhemoglobin ABG Sodium ABG Potassium ABG Chloride ABG Glucose Oxyhemoglobin Carboxyhemoglobin Sodium Potassium Chloride Carbon Dioxide BUN Creatinine Glucose POC Glucose 156 H 119 H 145 H Lactic Acid Calcium Ferritin AST ALT Lactate Dehydrogenase C-Reactive Protein Total Protein Albumin Triglycerides Arterial Blood Glucose Arterial Blood Ionized Calcium Urine Creatinine Urine Total Protein Vancomycin Trough Coronavirus (PCR) SARS-CoV-2 IgG Ab 07/10/20 07/10/20 07/10/20 03:32 05:26 11:22 WBC RBC Hgb Hct MCH MCHC RDW Plt Count Lymph % (Auto) Lymph # (Auto) Seg Neutrophils % Seg Neuts % (Manual) Lymphocytes % (Manual) Eosinophils % (Manual) Nucleated RBC % Seg Neutrophils # Seg Neutrophils # Man Lymphocytes # (Manual) Eosinophils # (Manual) PT INR D-Dimer Heparin Anti-Xa Level ABG pH POC ABG pCO2 POC ABG pO2 ABG pO2 75.7 L ABG HCO3 27.5 H ABG O2 Saturation ABG Base Excess ABG Hemoglobin 9.3 L ABG Oxyhemoglobin ABG Sodium ABG Potassium ABG Chloride ABG Glucose Oxyhemoglobin 94.7 L Carboxyhemoglobin Sodium Potassium Chloride Carbon Dioxide BUN Creatinine Glucose POC Glucose 156 H 148 H Lactic Acid Calcium Ferritin AST ALT Lactate Dehydrogenase C-Reactive Protein Total Protein Albumin Triglycerides Arterial Blood Glucose Arterial Blood Ionized Calcium Urine Creatinine Urine Total Protein Vancomycin Trough Coronavirus (PCR) SARS-CoV-2 IgG Ab 07/10/20 07/10/20 07/10/20 12:10 12:10 18:20 WBC 14.1 H RBC 3.33 L Hgb 9.9 L Hct MCH MCHC RDW Plt Count Lymph % (Auto) Lymph # (Auto) Seg Neutrophils % Seg Neuts % (Manual) 89.0 H Lymphocytes % (Manual) 8.0 L Eosinophils % (Manual) Nucleated RBC % Seg Neutrophils # Seg Neutrophils # Man 12.5 H Lymphocytes # (Manual) 1.1 L Eosinophils # (Manual) PT INR D-Dimer Heparin Anti-Xa Level ABG pH POC ABG pCO2 POC ABG pO2 ABG pO2 ABG HCO3 ABG O2 Saturation ABG Base Excess ABG Hemoglobin ABG Oxyhemoglobin ABG Sodium ABG Potassium ABG Chloride ABG Glucose Oxyhemoglobin Carboxyhemoglobin Sodium Potassium Chloride Carbon Dioxide BUN 21 H Creatinine Glucose 154 H POC Glucose 181 H Lactic Acid Calcium 8.0 L Ferritin AST ALT Lactate Dehydrogenase C-Reactive Protein Total Protein 5.4 L Albumin 3.0 L Triglycerides Arterial Blood Glucose Arterial Blood Ionized Calcium Urine Creatinine Urine Total Protein Vancomycin Trough Coronavirus (PCR) SARS-CoV-2 IgG Ab 07/10/20 07/11/20 07/11/20 23:51 04:05 05:43 WBC RBC Hgb Hct MCH MCHC RDW Plt Count Lymph % (Auto) Lymph # (Auto) Seg Neutrophils % Seg Neuts % (Manual) Lymphocytes % (Manual) Eosinophils % (Manual) Nucleated RBC % Seg Neutrophils # Seg Neutrophils # Man Lymphocytes # (Manual) Eosinophils # (Manual) PT INR D-Dimer Heparin Anti-Xa Level ABG pH 7.348 L POC ABG pCO2 POC ABG pO2 ABG pO2 93.6 H ABG HCO3 28.5 H ABG O2 Saturation ABG Base Excess ABG Hemoglobin 10.1 L ABG Oxyhemoglobin ABG Sodium ABG Potassium ABG Chloride ABG Glucose Oxyhemoglobin Carboxyhemoglobin Sodium Potassium Chloride Carbon Dioxide BUN Creatinine Glucose POC Glucose 116 H 132 H Lactic Acid Calcium Ferritin AST ALT Lactate Dehydrogenase C-Reactive Protein Total Protein Albumin Triglycerides Arterial Blood Glucose Arterial Blood Ionized Calcium Urine Creatinine Urine Total Protein Vancomycin Trough Coronavirus (PCR) SARS-CoV-2 IgG Ab 07/11/20 07/11/20 07/11/20 09:11 09:11 09:11 WBC 15.8 H RBC 3.44 L Hgb Hct MCH MCHC RDW Plt Count Lymph % (Auto) Lymph # (Auto) Seg Neutrophils % Seg Neuts % (Manual) 92.0 H Lymphocytes % (Manual) 4.0 L Eosinophils % (Manual) Nucleated RBC % Seg Neutrophils # Seg Neutrophils # Man 14.5 H Lymphocytes # (Manual) 0.6 L Eosinophils # (Manual) PT INR D-Dimer 360.61 H Heparin Anti-Xa Level ABG pH POC ABG pCO2 POC ABG pO2 ABG pO2 ABG HCO3 ABG O2 Saturation ABG Base Excess ABG Hemoglobin ABG Oxyhemoglobin ABG Sodium ABG Potassium ABG Chloride ABG Glucose Oxyhemoglobin Carboxyhemoglobin Sodium Potassium Chloride 107.1 H Carbon Dioxide BUN 22 H Creatinine Glucose 149 H POC Glucose Lactic Acid Calcium 7.8 L Ferritin AST ALT Lactate Dehydrogenase 483 H C-Reactive Protein 2.30 H Total Protein 4.9 L Albumin 3.0 L Triglycerides Arterial Blood Glucose Arterial Blood Ionized Calcium Urine Creatinine Urine Total Protein Vancomycin Trough Coronavirus (PCR) SARS-CoV-2 IgG Ab 07/11/20 07/11/20 07/11/20 09:11 12:16 17:55 WBC RBC Hgb Hct MCH MCHC RDW Plt Count Lymph % (Auto) Lymph # (Auto) Seg Neutrophils % Seg Neuts % (Manual) Lymphocytes % (Manual) Eosinophils % (Manual) Nucleated RBC % Seg Neutrophils # Seg Neutrophils # Man Lymphocytes # (Manual) Eosinophils # (Manual) PT INR D-Dimer Heparin Anti-Xa Level ABG pH POC ABG pCO2 POC ABG pO2 ABG pO2 ABG HCO3 ABG O2 Saturation ABG Base Excess ABG Hemoglobin ABG Oxyhemoglobin ABG Sodium ABG Potassium ABG Chloride ABG Glucose Oxyhemoglobin Carboxyhemoglobin Sodium Potassium Chloride Carbon Dioxide BUN Creatinine Glucose POC Glucose 157 H 166 H Lactic Acid Calcium Ferritin 371.2 H AST ALT Lactate Dehydrogenase C-Reactive Protein Total Protein Albumin Triglycerides Arterial Blood Glucose Arterial Blood Ionized Calcium Urine Creatinine Urine Total Protein Vancomycin Trough Coronavirus (PCR) SARS-CoV-2 IgG Ab 07/12/20 07/12/20 07/12/20 00:32 04:00 04:00 WBC RBC 3.52 L Hgb Hct MCH MCHC RDW Plt Count Lymph % (Auto) Lymph # (Auto) Seg Neutrophils % Seg Neuts % (Manual) 90.0 H Lymphocytes % (Manual) 4.0 L Eosinophils % (Manual) Nucleated RBC % Seg Neutrophils # Seg Neutrophils # Man 9.5 H Lymphocytes # (Manual) 0.4 L Eosinophils # (Manual) PT INR D-Dimer Heparin Anti-Xa Level ABG pH POC ABG pCO2 POC ABG pO2 ABG pO2 ABG HCO3 ABG O2 Saturation ABG Base Excess ABG Hemoglobin ABG Oxyhemoglobin ABG Sodium ABG Potassium ABG Chloride ABG Glucose Oxyhemoglobin Carboxyhemoglobin Sodium Potassium Chloride Carbon Dioxide 31 H BUN 21 H Creatinine Glucose 175 H POC Glucose 178 H Lactic Acid Calcium 8.0 L Ferritin AST ALT Lactate Dehydrogenase C-Reactive Protein Total Protein 5.4 L Albumin 3.0 L Triglycerides Arterial Blood Glucose Arterial Blood Ionized Calcium Urine Creatinine Urine Total Protein Vancomycin Trough Coronavirus (PCR) SARS-CoV-2 IgG Ab 07/12/20 07/12/20 07/12/20 04:01 05:47 12:09 WBC RBC Hgb Hct MCH MCHC RDW Plt Count Lymph % (Auto) Lymph # (Auto) Seg Neutrophils % Seg Neuts % (Manual) Lymphocytes % (Manual) Eosinophils % (Manual) Nucleated RBC % Seg Neutrophils # Seg Neutrophils # Man Lymphocytes # (Manual) Eosinophils # (Manual) PT INR D-Dimer Heparin Anti-Xa Level ABG pH 7.465 H POC ABG pCO2 POC ABG pO2 ABG pO2 ABG HCO3 ABG O2 Saturation ABG Base Excess ABG Hemoglobin 10.6 L ABG Oxyhemoglobin ABG Sodium ABG Potassium ABG Chloride ABG Glucose 177 H Oxyhemoglobin Carboxyhemoglobin Sodium Potassium Chloride Carbon Dioxide BUN Creatinine Glucose POC Glucose 185 H 227 H Lactic Acid Calcium Ferritin AST ALT Lactate Dehydrogenase C-Reactive Protein Total Protein Albumin Triglycerides Arterial Blood Glucose 177 H Arterial Blood Ionized Calcium 4.5 L Urine Creatinine Urine Total Protein Vancomycin Trough Coronavirus (PCR) SARS-CoV-2 IgG Ab 07/12/20 07/12/20 07/13/20 17:34 23:57 05:06 WBC RBC Hgb Hct MCH MCHC RDW Plt Count Lymph % (Auto) Lymph # (Auto) Seg Neutrophils % Seg Neuts % (Manual) Lymphocytes % (Manual) Eosinophils % (Manual) Nucleated RBC % Seg Neutrophils # Seg Neutrophils # Man Lymphocytes # (Manual) Eosinophils # (Manual) PT INR D-Dimer Heparin Anti-Xa Level ABG pH POC ABG pCO2 POC ABG pO2 ABG pO2 ABG HCO3 ABG O2 Saturation ABG Base Excess ABG Hemoglobin ABG Oxyhemoglobin ABG Sodium ABG Potassium ABG Chloride ABG Glucose Oxyhemoglobin Carboxyhemoglobin Sodium Potassium Chloride Carbon Dioxide BUN Creatinine Glucose POC Glucose 202 H 163 H 166 H Lactic Acid Calcium Ferritin AST ALT Lactate Dehydrogenase C-Reactive Protein Total Protein Albumin Triglycerides Arterial Blood Glucose Arterial Blood Ionized Calcium Urine Creatinine Urine Total Protein Vancomycin Trough Coronavirus (PCR) SARS-CoV-2 IgG Ab 07/13/20 07/13/20 07/13/20 07:20 07:20 07:20 WBC 20.5 H RBC Hgb Hct MCH MCHC RDW Plt Count Lymph % (Auto) Lymph # (Auto) Seg Neutrophils % Seg Neuts % (Manual) 93.0 H Lymphocytes % (Manual) 3.0 L Eosinophils % (Manual) Nucleated RBC % Seg Neutrophils # Seg Neutrophils # Man 19.1 H Lymphocytes # (Manual) 0.6 L Eosinophils # (Manual) PT INR D-Dimer 826.36 H Heparin Anti-Xa Level ABG pH POC ABG pCO2 POC ABG pO2 ABG pO2 ABG HCO3 ABG O2 Saturation ABG Base Excess ABG Hemoglobin ABG Oxyhemoglobin ABG Sodium ABG Potassium ABG Chloride ABG Glucose Oxyhemoglobin Carboxyhemoglobin Sodium Potassium Chloride Carbon Dioxide 31 H BUN 25 H Creatinine Glucose 163 H POC Glucose Lactic Acid Calcium 8.1 L Ferritin AST ALT Lactate Dehydrogenase 512 H C-Reactive Protein 1.80 H Total Protein 5.8 L Albumin 3.2 L Triglycerides Arterial Blood Glucose Arterial Blood Ionized Calcium Urine Creatinine Urine Total Protein Vancomycin Trough Coronavirus (PCR) SARS-CoV-2 IgG Ab 07/13/20 07/13/20 07/13/20 07:20 11:37 17:20 WBC RBC Hgb Hct MCH MCHC RDW Plt Count Lymph % (Auto) Lymph # (Auto) Seg Neutrophils % Seg Neuts % (Manual) Lymphocytes % (Manual) Eosinophils % (Manual) Nucleated RBC % Seg Neutrophils # Seg Neutrophils # Man Lymphocytes # (Manual) Eosinophils # (Manual) PT INR D-Dimer Heparin Anti-Xa Level ABG pH POC ABG pCO2 POC ABG pO2 ABG pO2 ABG HCO3 ABG O2 Saturation ABG Base Excess ABG Hemoglobin ABG Oxyhemoglobin ABG Sodium ABG Potassium ABG Chloride ABG Glucose Oxyhemoglobin Carboxyhemoglobin Sodium Potassium Chloride Carbon Dioxide BUN Creatinine Glucose POC Glucose 232 H 210 H Lactic Acid Calcium Ferritin 219.8 H AST ALT Lactate Dehydrogenase C-Reactive Protein Total Protein Albumin Triglycerides Arterial Blood Glucose Arterial Blood Ionized Calcium Urine Creatinine Urine Total Protein Vancomycin Trough Coronavirus (PCR) SARS-CoV-2 IgG Ab 07/13/20 07/13/20 07/14/20 23:57 Unknown 05:22 WBC RBC Hgb Hct MCH MCHC RDW Plt Count Lymph % (Auto) Lymph # (Auto) Seg Neutrophils % Seg Neuts % (Manual) Lymphocytes % (Manual) Eosinophils % (Manual) Nucleated RBC % Seg Neutrophils # Seg Neutrophils # Man Lymphocytes # (Manual) Eosinophils # (Manual) PT INR D-Dimer Heparin Anti-Xa Level ABG pH 7.341 L POC ABG pCO2 POC ABG pO2 133.0 H ABG pO2 56.5 L ABG HCO3 29.7 H ABG O2 Saturation 89.3 L ABG Base Excess ABG Hemoglobin 11.0 L ABG Oxyhemoglobin ABG Sodium ABG Potassium ABG Chloride ABG Glucose 207 H Oxyhemoglobin 87.7 L Carboxyhemoglobin Sodium Potassium Chloride Carbon Dioxide BUN Creatinine Glucose POC Glucose 190 H Lactic Acid Calcium Ferritin AST ALT Lactate Dehydrogenase C-Reactive Protein Total Protein Albumin Triglycerides Arterial Blood Glucose 207 H Arterial Blood Ionized Calcium 4.5 L Urine Creatinine Urine Total Protein Vancomycin Trough Coronavirus (PCR) SARS-CoV-2 IgG Ab 07/14/20 07/14/20 07/14/20 05:54 11:16 17:50 WBC RBC Hgb Hct MCH MCHC RDW Plt Count Lymph % (Auto) Lymph # (Auto) Seg Neutrophils % Seg Neuts % (Manual) Lymphocytes % (Manual) Eosinophils % (Manual) Nucleated RBC % Seg Neutrophils # Seg Neutrophils # Man Lymphocytes # (Manual) Eosinophils # (Manual) PT INR D-Dimer Heparin Anti-Xa Level ABG pH POC ABG pCO2 POC ABG pO2 ABG pO2 ABG HCO3 ABG O2 Saturation ABG Base Excess ABG Hemoglobin ABG Oxyhemoglobin ABG Sodium ABG Potassium ABG Chloride ABG Glucose Oxyhemoglobin Carboxyhemoglobin Sodium Potassium Chloride Carbon Dioxide BUN Creatinine Glucose POC Glucose 206 H 196 H 205 H Lactic Acid Calcium Ferritin AST ALT Lactate Dehydrogenase C-Reactive Protein Total Protein Albumin Triglycerides Arterial Blood Glucose Arterial Blood Ionized Calcium Urine Creatinine Urine Total Protein Vancomycin Trough Coronavirus (PCR) SARS-CoV-2 IgG Ab 07/14/20 07/15/20 07/15/20 23:28 03:16 06:12 WBC RBC Hgb Hct MCH MCHC RDW Plt Count Lymph % (Auto) Lymph # (Auto) Seg Neutrophils % Seg Neuts % (Manual) Lymphocytes % (Manual) Eosinophils % (Manual) Nucleated RBC % Seg Neutrophils # Seg Neutrophils # Man Lymphocytes # (Manual) Eosinophils # (Manual) PT INR D-Dimer Heparin Anti-Xa Level ABG pH POC ABG pCO2 49.2 H POC ABG pO2 120.3 H ABG pO2 ABG HCO3 ABG O2 Saturation ABG Base Excess ABG Hemoglobin 9.5 L ABG Oxyhemoglobin ABG Sodium ABG Potassium ABG Chloride ABG Glucose 148 H Oxyhemoglobin Carboxyhemoglobin Sodium Potassium Chloride Carbon Dioxide BUN Creatinine Glucose POC Glucose 160 H 178 H Lactic Acid Calcium Ferritin AST ALT Lactate Dehydrogenase C-Reactive Protein Total Protein Albumin Triglycerides Arterial Blood Glucose 148 H Arterial Blood Ionized Calcium Urine Creatinine Urine Total Protein Vancomycin Trough Coronavirus (PCR) SARS-CoV-2 IgG Ab 07/15/20 07/15/20 07/15/20 09:00 12:32 14:30 WBC RBC Hgb Hct MCH MCHC RDW Plt Count Lymph % (Auto) Lymph # (Auto) Seg Neutrophils % Seg Neuts % (Manual) Lymphocytes % (Manual) Eosinophils % (Manual) Nucleated RBC % Seg Neutrophils # Seg Neutrophils # Man Lymphocytes # (Manual) Eosinophils # (Manual) PT INR D-Dimer Heparin Anti-Xa Level ABG pH POC ABG pCO2 POC ABG pO2 ABG pO2 ABG HCO3 ABG O2 Saturation ABG Base Excess ABG Hemoglobin ABG Oxyhemoglobin ABG Sodium ABG Potassium ABG Chloride ABG Glucose Oxyhemoglobin Carboxyhemoglobin Sodium Potassium Chloride Carbon Dioxide BUN Creatinine Glucose POC Glucose 173 H Lactic Acid Calcium Ferritin AST ALT Lactate Dehydrogenase 531 H C-Reactive Protein Total Protein Albumin Triglycerides Arterial Blood Glucose Arterial Blood Ionized Calcium Urine Creatinine Urine Total Protein Vancomycin Trough Coronavirus (PCR) SARS-CoV-2 IgG Ab Reactive A 11/16/20 11/16/20 11/17/20 18:24 23:35 04:03 WBC RBC Hgb Hct MCH MCHC RDW Plt Count Lymph % (Auto) Lymph # (Auto) Seg Neutrophils % Seg Neuts % (Manual) Lymphocytes % (Manual) Eosinophils % (Manual) Nucleated RBC % Seg Neutrophils # Seg Neutrophils # Man Lymphocytes # (Manual) Eosinophils # (Manual) PT INR D-Dimer Heparin Anti-Xa Level ABG pH POC ABG pCO2 POC ABG pO2 ABG pO2 72.7 L ABG HCO3 35.5 H ABG O2 Saturation ABG Base Excess 9.4 H ABG Hemoglobin 10.6 L ABG Oxyhemoglobin ABG Sodium ABG Potassium ABG Chloride ABG Glucose Oxyhemoglobin 93.6 L Carboxyhemoglobin Sodium Potassium Chloride Carbon Dioxide BUN Creatinine Glucose POC Glucose 173 H 181 H Lactic Acid Calcium Ferritin AST ALT Lactate Dehydrogenase C-Reactive Protein Total Protein Albumin Triglycerides Arterial Blood Glucose Arterial Blood Ionized Calcium Urine Creatinine Urine Total Protein Vancomycin Trough Coronavirus (PCR) SARS-CoV-2 IgG Ab 07/16/20 07/16/20 07/16/20 05:35 09:00 09:00 WBC 16.5 H RBC 3.59 L Hgb Hct MCH MCHC RDW Plt Count Lymph % (Auto) Lymph # (Auto) Seg Neutrophils % Seg Neuts % (Manual) 96.0 H Lymphocytes % (Manual) 3.0 L Eosinophils % (Manual) Nucleated RBC % Seg Neutrophils # Seg Neutrophils # Man 15.8 H Lymphocytes # (Manual) 0.5 L Eosinophils # (Manual) PT INR D-Dimer Heparin Anti-Xa Level ABG pH POC ABG pCO2 POC ABG pO2 ABG pO2 ABG HCO3 ABG O2 Saturation ABG Base Excess ABG Hemoglobin ABG Oxyhemoglobin ABG Sodium ABG Potassium ABG Chloride ABG Glucose Oxyhemoglobin Carboxyhemoglobin Sodium Potassium Chloride Carbon Dioxide 39 H D BUN 25 H Creatinine 0.4 L Glucose 167 H POC Glucose 129 H Lactic Acid Calcium 8.3 L Ferritin AST ALT Lactate Dehydrogenase C-Reactive Protein Total Protein Albumin Triglycerides Arterial Blood Glucose Arterial Blood Ionized Calcium Urine Creatinine Urine Total Protein Vancomycin Trough Coronavirus (PCR) SARS-CoV-2 IgG Ab 07/16/20 07/16/20 07/17/20 12:32 18:28 00:09 WBC RBC Hgb Hct MCH MCHC RDW Plt Count Lymph % (Auto) Lymph # (Auto) Seg Neutrophils % Seg Neuts % (Manual) Lymphocytes % (Manual) Eosinophils % (Manual) Nucleated RBC % Seg Neutrophils # Seg Neutrophils # Man Lymphocytes # (Manual) Eosinophils # (Manual) PT INR D-Dimer Heparin Anti-Xa Level ABG pH POC ABG pCO2 POC ABG pO2 ABG pO2 ABG HCO3 ABG O2 Saturation ABG Base Excess ABG Hemoglobin ABG Oxyhemoglobin ABG Sodium ABG Potassium ABG Chloride ABG Glucose Oxyhemoglobin Carboxyhemoglobin Sodium Potassium Chloride Carbon Dioxide BUN Creatinine Glucose POC Glucose 187 H 174 H 184 H Lactic Acid Calcium Ferritin AST ALT Lactate Dehydrogenase C-Reactive Protein Total Protein Albumin Triglycerides Arterial Blood Glucose Arterial Blood Ionized Calcium Urine Creatinine Urine Total Protein Vancomycin Trough Coronavirus (PCR) SARS-CoV-2 IgG Ab 07/17/20 07/17/20 07/17/20 04:30 05:47 13:03 WBC RBC Hgb Hct MCH MCHC RDW Plt Count Lymph % (Auto) Lymph # (Auto) Seg Neutrophils % Seg Neuts % (Manual) Lymphocytes % (Manual) Eosinophils % (Manual) Nucleated RBC % Seg Neutrophils # Seg Neutrophils # Man Lymphocytes # (Manual) Eosinophils # (Manual) PT INR D-Dimer Heparin Anti-Xa Level ABG pH POC ABG pCO2 POC ABG pO2 ABG pO2 ABG HCO3 38.1 H ABG O2 Saturation ABG Base Excess 11.3 H ABG Hemoglobin 10.5 L ABG Oxyhemoglobin ABG Sodium ABG Potassium ABG Chloride ABG Glucose Oxyhemoglobin Carboxyhemoglobin Sodium Potassium Chloride Carbon Dioxide BUN Creatinine Glucose POC Glucose 135 H 210 H Lactic Acid Calcium Ferritin AST ALT Lactate Dehydrogenase C-Reactive Protein Total Protein Albumin Triglycerides Arterial Blood Glucose Arterial Blood Ionized Calcium Urine Creatinine Urine Total Protein Vancomycin Trough Coronavirus (PCR) SARS-CoV-2 IgG Ab 07/17/20 07/17/20 07/18/20 16:50 23:39 04:01 WBC RBC Hgb Hct MCH MCHC RDW Plt Count Lymph % (Auto) Lymph # (Auto) Seg Neutrophils % Seg Neuts % (Manual) Lymphocytes % (Manual) Eosinophils % (Manual) Nucleated RBC % Seg Neutrophils # Seg Neutrophils # Man Lymphocytes # (Manual) Eosinophils # (Manual) PT INR D-Dimer Heparin Anti-Xa Level ABG pH POC ABG pCO2 56.8 H POC ABG pO2 61.9 L ABG pO2 ABG HCO3 ABG O2 Saturation ABG Base Excess ABG Hemoglobin 11.7 L ABG Oxyhemoglobin ABG Sodium 134.2 L ABG Potassium 4.7 H ABG Chloride 97.0 L ABG Glucose 173 H Oxyhemoglobin Carboxyhemoglobin Sodium Potassium Chloride Carbon Dioxide BUN Creatinine Glucose POC Glucose 193 H 163 H Lactic Acid Calcium Ferritin AST ALT Lactate Dehydrogenase C-Reactive Protein Total Protein Albumin Triglycerides Arterial Blood Glucose 173 H Arterial Blood Ionized Calcium Urine Creatinine Urine Total Protein Vancomycin Trough Coronavirus (PCR) SARS-CoV-2 IgG Ab 07/18/20 07/18/20 07/18/20 05:41 12:03 17:26 WBC RBC Hgb Hct MCH MCHC RDW Plt Count Lymph % (Auto) Lymph # (Auto) Seg Neutrophils % Seg Neuts % (Manual) Lymphocytes % (Manual) Eosinophils % (Manual) Nucleated RBC % Seg Neutrophils # Seg Neutrophils # Man Lymphocytes # (Manual) Eosinophils # (Manual) PT INR D-Dimer Heparin Anti-Xa Level ABG pH POC ABG pCO2 POC ABG pO2 ABG pO2 ABG HCO3 ABG O2 Saturation ABG Base Excess ABG Hemoglobin ABG Oxyhemoglobin ABG Sodium ABG Potassium ABG Chloride ABG Glucose Oxyhemoglobin Carboxyhemoglobin Sodium Potassium Chloride Carbon Dioxide BUN Creatinine Glucose POC Glucose 153 H 177 H 160 H Lactic Acid Calcium Ferritin AST ALT Lactate Dehydrogenase C-Reactive Protein Total Protein Albumin Triglycerides Arterial Blood Glucose Arterial Blood Ionized Calcium Urine Creatinine Urine Total Protein Vancomycin Trough Coronavirus (PCR) SARS-CoV-2 IgG Ab 07/18/20 07/19/20 07/19/20 23:58 04:15 05:05 WBC RBC Hgb Hct MCH MCHC RDW Plt Count Lymph % (Auto) Lymph # (Auto) Seg Neutrophils % Seg Neuts % (Manual) Lymphocytes % (Manual) Eosinophils % (Manual) Nucleated RBC % Seg Neutrophils # Seg Neutrophils # Man Lymphocytes # (Manual) Eosinophils # (Manual) PT INR D-Dimer Heparin Anti-Xa Level ABG pH 7.465 H POC ABG pCO2 49.1 H POC ABG pO2 49.4 L ABG pO2 ABG HCO3 ABG O2 Saturation ABG Base Excess ABG Hemoglobin 11.6 L ABG Oxyhemoglobin ABG Sodium 132.3 L ABG Potassium ABG Chloride 97.0 L ABG Glucose 148 H Oxyhemoglobin Carboxyhemoglobin Sodium Potassium Chloride Carbon Dioxide BUN Creatinine Glucose POC Glucose 144 H 117 H Lactic Acid Calcium Ferritin AST ALT Lactate Dehydrogenase C-Reactive Protein Total Protein Albumin Triglycerides Arterial Blood Glucose 148 H Arterial Blood Ionized Calcium Urine Creatinine Urine Total Protein Vancomycin Trough Coronavirus (PCR) SARS-CoV-2 IgG Ab 07/19/20 07/19/20 07/19/20 08:30 08:30 13:21 WBC 17.2 H RBC 3.59 L Hgb Hct MCH MCHC RDW Plt Count Lymph % (Auto) Lymph # (Auto) Seg Neutrophils % Seg Neuts % (Manual) Lymphocytes % (Manual) Eosinophils % (Manual) Nucleated RBC % Seg Neutrophils # Seg Neutrophils # Man Lymphocytes # (Manual) Eosinophils # (Manual) PT INR D-Dimer Heparin Anti-Xa Level ABG pH POC ABG pCO2 POC ABG pO2 ABG pO2 ABG HCO3 ABG O2 Saturation ABG Base Excess ABG Hemoglobin ABG Oxyhemoglobin ABG Sodium ABG Potassium ABG Chloride ABG Glucose Oxyhemoglobin Carboxyhemoglobin Sodium Potassium Chloride 95.7 L Carbon Dioxide 37 H BUN 20 H Creatinine 0.4 L Glucose 125 H POC Glucose 137 H Lactic Acid Calcium 8.1 L Ferritin AST ALT Lactate Dehydrogenase C-Reactive Protein Total Protein Albumin Triglycerides Arterial Blood Glucose Arterial Blood Ionized Calcium Urine Creatinine Urine Total Protein Vancomycin Trough Coronavirus (PCR) SARS-CoV-2 IgG Ab 07/19/20 07/19/20 07/20/20 16:29 17:28 00:25 WBC RBC Hgb Hct MCH MCHC RDW Plt Count Lymph % (Auto) Lymph # (Auto) Seg Neutrophils % Seg Neuts % (Manual) Lymphocytes % (Manual) Eosinophils % (Manual) Nucleated RBC % Seg Neutrophils # Seg Neutrophils # Man Lymphocytes # (Manual) Eosinophils # (Manual) PT INR D-Dimer Heparin Anti-Xa Level ABG pH POC ABG pCO2 53.4 H POC ABG pO2 71.0 L ABG pO2 ABG HCO3 ABG O2 Saturation ABG Base Excess ABG Hemoglobin 11.2 L ABG Oxyhemoglobin 93.6 L ABG Sodium 130.9 L ABG Potassium ABG Chloride 95.0 L ABG Glucose 188 H Oxyhemoglobin Carboxyhemoglobin Sodium Potassium Chloride Carbon Dioxide BUN Creatinine Glucose POC Glucose 174 H 188 H Lactic Acid Calcium Ferritin AST ALT Lactate Dehydrogenase C-Reactive Protein Total Protein Albumin Triglycerides Arterial Blood Glucose 188 H Arterial Blood Ionized Calcium 4.4 L Urine Creatinine Urine Total Protein Vancomycin Trough Coronavirus (PCR) SARS-CoV-2 IgG Ab 11/07/20/20 07/20/20 04:14 05:23 12:12 WBC RBC Hgb Hct MCH MCHC RDW Plt Count Lymph % (Auto) Lymph # (Auto) Seg Neutrophils % Seg Neuts % (Manual) Lymphocytes % (Manual) Eosinophils % (Manual) Nucleated RBC % Seg Neutrophils # Seg Neutrophils # Man Lymphocytes # (Manual) Eosinophils # (Manual) PT INR D-Dimer Heparin Anti-Xa Level ABG pH POC ABG pCO2 52.7 H POC ABG pO2 59.5 L ABG pO2 ABG HCO3 ABG O2 Saturation ABG Base Excess ABG Hemoglobin 10.6 L ABG Oxyhemoglobin ABG Sodium 134.4 L ABG Potassium ABG Chloride ABG Glucose 176 H Oxyhemoglobin Carboxyhemoglobin Sodium Potassium Chloride Carbon Dioxide BUN Creatinine Glucose POC Glucose 212 H 190 H Lactic Acid Calcium Ferritin AST ALT Lactate Dehydrogenase C-Reactive Protein Total Protein Albumin Triglycerides Arterial Blood Glucose 176 H Arterial Blood Ionized Calcium 4.5 L Urine Creatinine Urine Total Protein Vancomycin Trough Coronavirus (PCR) SARS-CoV-2 IgG Ab 07/20/20 07/21/20 07/21/20 16:59 00:01 04:30 WBC RBC Hgb Hct MCH MCHC RDW Plt Count Lymph % (Auto) Lymph # (Auto) Seg Neutrophils % Seg Neuts % (Manual) Lymphocytes % (Manual) Eosinophils % (Manual) Nucleated RBC % Seg Neutrophils # Seg Neutrophils # Man Lymphocytes # (Manual) Eosinophils # (Manual) PT INR D-Dimer Heparin Anti-Xa Level ABG pH 7.468 H POC ABG pCO2 POC ABG pO2 63.3 L ABG pO2 ABG HCO3 ABG O2 Saturation ABG Base Excess ABG Hemoglobin 11 L ABG Oxyhemoglobin ABG Sodium 135.0 L ABG Potassium ABG Chloride ABG Glucose 204 H Oxyhemoglobin Carboxyhemoglobin Sodium Potassium Chloride Carbon Dioxide BUN Creatinine Glucose POC Glucose 201 H 177 H Lactic Acid Calcium Ferritin AST ALT Lactate Dehydrogenase C-Reactive Protein Total Protein Albumin Triglycerides Arterial Blood Glucose 204 H Arterial Blood Ionized Calcium 4.5 L Urine Creatinine Urine Total Protein Vancomycin Trough Coronavirus (PCR) SARS-CoV-2 IgG Ab 07/21/20 07/21/20 07/21/20 05:26 11:50 17:16 WBC RBC Hgb Hct MCH MCHC RDW Plt Count Lymph % (Auto) Lymph # (Auto) Seg Neutrophils % Seg Neuts % (Manual) Lymphocytes % (Manual) Eosinophils % (Manual) Nucleated RBC % Seg Neutrophils # Seg Neutrophils # Man Lymphocytes # (Manual) Eosinophils # (Manual) PT INR D-Dimer Heparin Anti-Xa Level ABG pH POC ABG pCO2 POC ABG pO2 ABG pO2 ABG HCO3 ABG O2 Saturation ABG Base Excess ABG Hemoglobin ABG Oxyhemoglobin ABG Sodium ABG Potassium ABG Chloride ABG Glucose Oxyhemoglobin Carboxyhemoglobin Sodium Potassium Chloride Carbon Dioxide BUN Creatinine Glucose POC Glucose 175 H 157 H 148 H Lactic Acid Calcium Ferritin AST ALT Lactate Dehydrogenase C-Reactive Protein Total Protein Albumin Triglycerides Arterial Blood Glucose Arterial Blood Ionized Calcium Urine Creatinine Urine Total Protein Vancomycin Trough Coronavirus (PCR) SARS-CoV-2 IgG Ab 07/22/20 07/22/20 07/22/20 00:01 03:26 05:16 WBC RBC Hgb Hct MCH MCHC RDW Plt Count Lymph % (Auto) Lymph # (Auto) Seg Neutrophils % Seg Neuts % (Manual) Lymphocytes % (Manual) Eosinophils % (Manual) Nucleated RBC % Seg Neutrophils # Seg Neutrophils # Man Lymphocytes # (Manual) Eosinophils # (Manual) PT INR D-Dimer Heparin Anti-Xa Level ABG pH POC ABG pCO2 POC ABG pO2 54.2 L ABG pO2 ABG HCO3 ABG O2 Saturation ABG Base Excess ABG Hemoglobin 10.9 L ABG Oxyhemoglobin ABG Sodium 133.7 L ABG Potassium ABG Chloride ABG Glucose 217 H Oxyhemoglobin Carboxyhemoglobin Sodium Potassium Chloride Carbon Dioxide BUN Creatinine Glucose POC Glucose 172 H 182 H Lactic Acid Calcium Ferritin AST ALT Lactate Dehydrogenase C-Reactive Protein Total Protein Albumin Triglycerides Arterial Blood Glucose 217 H Arterial Blood Ionized Calcium 4.5 L Urine Creatinine Urine Total Protein Vancomycin Trough Coronavirus (PCR) SARS-CoV-2 IgG Ab 07/22/20 07/22/20 07/23/20 11:43 17:08 04:00 WBC 11.6 H RBC 3.54 L Hgb Hct MCH MCHC RDW Plt Count Lymph % (Auto) Lymph # (Auto) Seg Neutrophils % Seg Neuts % (Manual) 94.0 H Lymphocytes % (Manual) 5.0 L Eosinophils % (Manual) Nucleated RBC % Seg Neutrophils # Seg Neutrophils # Man 10.9 H Lymphocytes # (Manual) 0.6 L Eosinophils # (Manual) PT INR D-Dimer Heparin Anti-Xa Level ABG pH POC ABG pCO2 POC ABG pO2 ABG pO2 ABG HCO3 ABG O2 Saturation ABG Base Excess ABG Hemoglobin ABG Oxyhemoglobin ABG Sodium ABG Potassium ABG Chloride ABG Glucose Oxyhemoglobin Carboxyhemoglobin Sodium Potassium Chloride Carbon Dioxide BUN Creatinine Glucose POC Glucose 159 H 163 H Lactic Acid Calcium Ferritin AST ALT Lactate Dehydrogenase C-Reactive Protein Total Protein Albumin Triglycerides Arterial Blood Glucose Arterial Blood Ionized Calcium Urine Creatinine Urine Total Protein Vancomycin Trough Coronavirus (PCR) SARS-CoV-2 IgG Ab 07/23/20 07/23/20 07/23/20 04:00 04:53 04:54 WBC RBC Hgb Hct MCH MCHC RDW Plt Count Lymph % (Auto) Lymph # (Auto) Seg Neutrophils % Seg Neuts % (Manual) Lymphocytes % (Manual) Eosinophils % (Manual) Nucleated RBC % Seg Neutrophils # Seg Neutrophils # Man Lymphocytes # (Manual) Eosinophils # (Manual) PT INR D-Dimer Heparin Anti-Xa Level ABG pH 7.453 H POC ABG pCO2 POC ABG pO2 ABG pO2 ABG HCO3 32.4 H ABG O2 Saturation ABG Base Excess 7.5 H ABG Hemoglobin 10.7 L ABG Oxyhemoglobin ABG Sodium ABG Potassium ABG Chloride ABG Glucose Oxyhemoglobin Carboxyhemoglobin Sodium Potassium Chloride Carbon Dioxide 35 H BUN Creatinine 0.4 L Glucose 112 H POC Glucose 169 H Lactic Acid Calcium 8.2 L Ferritin AST ALT Lactate Dehydrogenase C-Reactive Protein Total Protein Albumin Triglycerides Arterial Blood Glucose Arterial Blood Ionized Calcium Urine Creatinine Urine Total Protein Vancomycin Trough Coronavirus (PCR) SARS-CoV-2 IgG Ab 07/23/20 07/23/20 07/23/20 11:50 23:19 Unknown WBC RBC Hgb Hct MCH MCHC RDW Plt Count Lymph % (Auto) Lymph # (Auto) Seg Neutrophils % Seg Neuts % (Manual) Lymphocytes % (Manual) Eosinophils % (Manual) Nucleated RBC % Seg Neutrophils # Seg Neutrophils # Man Lymphocytes # (Manual) Eosinophils # (Manual) PT INR D-Dimer Heparin Anti-Xa Level ABG pH POC ABG pCO2 POC ABG pO2 ABG pO2 ABG HCO3 ABG O2 Saturation ABG Base Excess ABG Hemoglobin ABG Oxyhemoglobin ABG Sodium ABG Potassium ABG Chloride ABG Glucose Oxyhemoglobin Carboxyhemoglobin Sodium Potassium Chloride Carbon Dioxide BUN Creatinine Glucose POC Glucose 118 H 168 H Lactic Acid Calcium Ferritin AST ALT Lactate Dehydrogenase C-Reactive Protein Total Protein Albumin Triglycerides Arterial Blood Glucose Arterial Blood Ionized Calcium Urine Creatinine Urine Total Protein Vancomycin Trough Coronavirus (PCR) Positive A SARS-CoV-2 IgG Ab 07/24/20 07/24/20 07/24/20 04:11 05:37 11:42 WBC RBC Hgb Hct MCH MCHC RDW Plt Count Lymph % (Auto) Lymph # (Auto) Seg Neutrophils % Seg Neuts % (Manual) Lymphocytes % (Manual) Eosinophils % (Manual) Nucleated RBC % Seg Neutrophils # Seg Neutrophils # Man Lymphocytes # (Manual) Eosinophils # (Manual) PT INR D-Dimer Heparin Anti-Xa Level ABG pH POC ABG pCO2 POC ABG pO2 ABG pO2 54.4 L ABG HCO3 34.3 H ABG O2 Saturation 89.0 L ABG Base Excess 8.5 H ABG Hemoglobin 11.0 L ABG Oxyhemoglobin ABG Sodium ABG Potassium ABG Chloride ABG Glucose Oxyhemoglobin 87.0 L Carboxyhemoglobin Sodium Potassium Chloride Carbon Dioxide BUN Creatinine Glucose POC Glucose 115 H 166 H Lactic Acid Calcium Ferritin AST ALT Lactate Dehydrogenase C-Reactive Protein Total Protein Albumin Triglycerides Arterial Blood Glucose Arterial Blood Ionized Calcium Urine Creatinine Urine Total Protein Vancomycin Trough Coronavirus (PCR) SARS-CoV-2 IgG Ab 07/24/20 07/24/20 07/25/20 17:39 23:38 03:53 WBC RBC Hgb Hct MCH MCHC RDW Plt Count Lymph % (Auto) Lymph # (Auto) Seg Neutrophils % Seg Neuts % (Manual) Lymphocytes % (Manual) Eosinophils % (Manual) Nucleated RBC % Seg Neutrophils # Seg Neutrophils # Man Lymphocytes # (Manual) Eosinophils # (Manual) PT INR D-Dimer Heparin Anti-Xa Level ABG pH POC ABG pCO2 POC ABG pO2 ABG pO2 175.9 H ABG HCO3 34.0 H ABG O2 Saturation 99.1 H ABG Base Excess 8.2 H ABG Hemoglobin 10.6 L ABG Oxyhemoglobin ABG Sodium ABG Potassium ABG Chloride ABG Glucose Oxyhemoglobin Carboxyhemoglobin Sodium Potassium Chloride Carbon Dioxide BUN Creatinine Glucose POC Glucose 150 H 139 H Lactic Acid Calcium Ferritin AST ALT Lactate Dehydrogenase C-Reactive Protein Total Protein Albumin Triglycerides Arterial Blood Glucose Arterial Blood Ionized Calcium Urine Creatinine Urine Total Protein Vancomycin Trough Coronavirus (PCR) SARS-CoV-2 IgG Ab 07/25/20 07/25/20 07/25/20 05:47 12:09 23:46 WBC RBC Hgb Hct MCH MCHC RDW Plt Count Lymph % (Auto) Lymph # (Auto) Seg Neutrophils % Seg Neuts % (Manual) Lymphocytes % (Manual) Eosinophils % (Manual) Nucleated RBC % Seg Neutrophils # Seg Neutrophils # Man Lymphocytes # (Manual) Eosinophils # (Manual) PT INR D-Dimer Heparin Anti-Xa Level ABG pH POC ABG pCO2 POC ABG pO2 ABG pO2 ABG HCO3 ABG O2 Saturation ABG Base Excess ABG Hemoglobin ABG Oxyhemoglobin ABG Sodium ABG Potassium ABG Chloride ABG Glucose Oxyhemoglobin Carboxyhemoglobin Sodium Potassium Chloride Carbon Dioxide BUN Creatinine Glucose POC Glucose 144 H 152 H 116 H Lactic Acid Calcium Ferritin AST ALT Lactate Dehydrogenase C-Reactive Protein Total Protein Albumin Triglycerides Arterial Blood Glucose Arterial Blood Ionized Calcium Urine Creatinine Urine Total Protein Vancomycin Trough Coronavirus (PCR) SARS-CoV-2 IgG Ab 07/26/20 07/26/20 07/26/20 03:48 05:36 11:28 WBC RBC Hgb Hct MCH MCHC RDW Plt Count Lymph % (Auto) Lymph # (Auto) Seg Neutrophils % Seg Neuts % (Manual) Lymphocytes % (Manual) Eosinophils % (Manual) Nucleated RBC % Seg Neutrophils # Seg Neutrophils # Man Lymphocytes # (Manual) Eosinophils # (Manual) PT INR D-Dimer Heparin Anti-Xa Level ABG pH POC ABG pCO2 POC ABG pO2 ABG pO2 73.4 L ABG HCO3 35.0 H ABG O2 Saturation ABG Base Excess 8.3 H ABG Hemoglobin 9.8 L ABG Oxyhemoglobin ABG Sodium ABG Potassium ABG Chloride ABG Glucose Oxyhemoglobin 93.7 L Carboxyhemoglobin Sodium Potassium Chloride Carbon Dioxide BUN Creatinine Glucose POC Glucose 136 H 145 H Lactic Acid Calcium Ferritin AST ALT Lactate Dehydrogenase C-Reactive Protein Total Protein Albumin Triglycerides Arterial Blood Glucose Arterial Blood Ionized Calcium Urine Creatinine Urine Total Protein Vancomycin Trough Coronavirus (PCR) SARS-CoV-2 IgG Ab 07/26/20 07/26/20 07/26/20 14:23 17:19 23:33 WBC 12.0 H RBC 3.12 L Hgb 9.5 L Hct 28.6 L MCH MCHC RDW Plt Count Lymph % (Auto) 4.2 L Lymph # (Auto) 0.5 L Seg Neutrophils % 89.8 H Seg Neuts % (Manual) Lymphocytes % (Manual) Eosinophils % (Manual) Nucleated RBC % Seg Neutrophils # 10.8 H Seg Neutrophils # Man Lymphocytes # (Manual) Eosinophils # (Manual) PT INR D-Dimer Heparin Anti-Xa Level ABG pH POC ABG pCO2 POC ABG pO2 ABG pO2 ABG HCO3 ABG O2 Saturation ABG Base Excess ABG Hemoglobin ABG Oxyhemoglobin ABG Sodium ABG Potassium ABG Chloride ABG Glucose Oxyhemoglobin Carboxyhemoglobin Sodium Potassium Chloride Carbon Dioxide BUN Creatinine Glucose POC Glucose 202 H 122 H Lactic Acid Calcium Ferritin AST ALT Lactate Dehydrogenase C-Reactive Protein Total Protein Albumin Triglycerides Arterial Blood Glucose Arterial Blood Ionized Calcium Urine Creatinine Urine Total Protein Vancomycin Trough Coronavirus (PCR) SARS-CoV-2 IgG Ab 07/27/20 07/27/20 07/27/20 04:30 05:54 12:06 WBC RBC Hgb Hct MCH MCHC RDW Plt Count Lymph % (Auto) Lymph # (Auto) Seg Neutrophils % Seg Neuts % (Manual) Lymphocytes % (Manual) Eosinophils % (Manual) Nucleated RBC % Seg Neutrophils # Seg Neutrophils # Man Lymphocytes # (Manual) Eosinophils # (Manual) PT INR D-Dimer Heparin Anti-Xa Level ABG pH POC ABG pCO2 POC ABG pO2 ABG pO2 49.0 L ABG HCO3 35.7 H ABG O2 Saturation 87.6 L ABG Base Excess 10.1 H ABG Hemoglobin 11.5 L ABG Oxyhemoglobin ABG Sodium ABG Potassium ABG Chloride ABG Glucose Oxyhemoglobin 85.4 L Carboxyhemoglobin Sodium Potassium Chloride Carbon Dioxide BUN Creatinine Glucose POC Glucose 164 H 149 H Lactic Acid Calcium Ferritin AST ALT Lactate Dehydrogenase C-Reactive Protein Total Protein Albumin Triglycerides Arterial Blood Glucose Arterial Blood Ionized Calcium Urine Creatinine Urine Total Protein Vancomycin Trough Coronavirus (PCR) SARS-CoV-2 IgG Ab 07/27/20 07/27/20 07/27/20 13:00 14:18 14:18 WBC 12.2 H RBC 3.33 L Hgb 10.0 L Hct MCH MCHC RDW Plt Count Lymph % (Auto) Lymph # (Auto) Seg Neutrophils % Seg Neuts % (Manual) 90.0 H Lymphocytes % (Manual) 7.0 L Eosinophils % (Manual) Nucleated RBC % Seg Neutrophils # Seg Neutrophils # Man 11.0 H Lymphocytes # (Manual) 0.9 L Eosinophils # (Manual) PT INR D-Dimer Heparin Anti-Xa Level ABG pH 7.313 L POC ABG pCO2 POC ABG pO2 ABG pO2 107.5 H ABG HCO3 37.6 H ABG O2 Saturation ABG Base Excess 8.1 H ABG Hemoglobin 10.1 L ABG Oxyhemoglobin ABG Sodium ABG Potassium ABG Chloride ABG Glucose Oxyhemoglobin Carboxyhemoglobin Sodium Potassium Chloride 97.6 L Carbon Dioxide 35 H BUN 18 H Creatinine Glucose 135 H POC Glucose Lactic Acid Calcium 8.3 L Ferritin AST ALT Lactate Dehydrogenase C-Reactive Protein Total Protein Albumin Triglycerides Arterial Blood Glucose Arterial Blood Ionized Calcium Urine Creatinine Urine Total Protein Vancomycin Trough Coronavirus (PCR) SARS-CoV-2 IgG Ab 07/27/20 07/27/20 07/28/20 17:09 23:14 04:15 WBC RBC Hgb Hct MCH MCHC RDW Plt Count Lymph % (Auto) Lymph # (Auto) Seg Neutrophils % Seg Neuts % (Manual) Lymphocytes % (Manual) Eosinophils % (Manual) Nucleated RBC % Seg Neutrophils # Seg Neutrophils # Man Lymphocytes # (Manual) Eosinophils # (Manual) PT INR D-Dimer Heparin Anti-Xa Level ABG pH 7.317 L POC ABG pCO2 POC ABG pO2 ABG pO2 130.3 H ABG HCO3 40.9 H ABG O2 Saturation ABG Base Excess 13.5 H ABG Hemoglobin 5.8 L ABG Oxyhemoglobin ABG Sodium ABG Potassium ABG Chloride ABG Glucose Oxyhemoglobin Carboxyhemoglobin Sodium Potassium Chloride Carbon Dioxide BUN Creatinine Glucose POC Glucose 115 H 139 H Lactic Acid Calcium Ferritin AST ALT Lactate Dehydrogenase C-Reactive Protein Total Protein Albumin Triglycerides Arterial Blood Glucose Arterial Blood Ionized Calcium Urine Creatinine Urine Total Protein Vancomycin Trough Coronavirus (PCR) SARS-CoV-2 IgG Ab 07/28/20 07/28/20 07/28/20 05:34 09:20 09:20 WBC RBC 2.89 L Hgb 9.5 L Hct 26.6 L MCH 33 H MCHC 36 H RDW Plt Count 123 L Lymph % (Auto) Lymph # (Auto) Seg Neutrophils % Seg Neuts % (Manual) 89.0 H Lymphocytes % (Manual) 5.0 L Eosinophils % (Manual) Nucleated RBC % Seg Neutrophils # Seg Neutrophils # Man 8.6 H Lymphocytes # (Manual) 0.5 L Eosinophils # (Manual) PT INR D-Dimer Heparin Anti-Xa Level ABG pH POC ABG pCO2 POC ABG pO2 ABG pO2 ABG HCO3 ABG O2 Saturation ABG Base Excess ABG Hemoglobin ABG Oxyhemoglobin ABG Sodium ABG Potassium ABG Chloride ABG Glucose Oxyhemoglobin Carboxyhemoglobin Sodium 134 L Potassium Chloride 95.6 L Carbon Dioxide 39 H BUN Creatinine 0.3 L Glucose 131 H POC Glucose 130 H Lactic Acid Calcium 7.9 L Ferritin AST ALT Lactate Dehydrogenase C-Reactive Protein Total Protein Albumin Triglycerides Arterial Blood Glucose Arterial Blood Ionized Calcium Urine Creatinine Urine Total Protein Vancomycin Trough Coronavirus (PCR) SARS-CoV-2 IgG Ab 07/28/20 07/28/20 07/28/20 11:50 18:36 23:22 WBC RBC Hgb Hct MCH MCHC RDW Plt Count Lymph % (Auto) Lymph # (Auto) Seg Neutrophils % Seg Neuts % (Manual) Lymphocytes % (Manual) Eosinophils % (Manual) Nucleated RBC % Seg Neutrophils # Seg Neutrophils # Man Lymphocytes # (Manual) Eosinophils # (Manual) PT INR D-Dimer Heparin Anti-Xa Level ABG pH POC ABG pCO2 POC ABG pO2 ABG pO2 ABG HCO3 ABG O2 Saturation ABG Base Excess ABG Hemoglobin ABG Oxyhemoglobin ABG Sodium ABG Potassium ABG Chloride ABG Glucose Oxyhemoglobin Carboxyhemoglobin Sodium Potassium Chloride Carbon Dioxide BUN Creatinine Glucose POC Glucose 128 H 119 H 122 H Lactic Acid Calcium Ferritin AST ALT Lactate Dehydrogenase C-Reactive Protein Total Protein Albumin Triglycerides Arterial Blood Glucose Arterial Blood Ionized Calcium Urine Creatinine Urine Total Protein Vancomycin Trough Coronavirus (PCR) SARS-CoV-2 IgG Ab 07/29/20 07/29/20 07/29/20 03:18 07:54 07:54 WBC 11.1 H RBC 3.49 L Hgb Hct MCH MCHC RDW Plt Count 139 L Lymph % (Auto) Lymph # (Auto) Seg Neutrophils % Seg Neuts % (Manual) 90.0 H Lymphocytes % (Manual) 1.0 L Eosinophils % (Manual) 5.0 H Nucleated RBC % Seg Neutrophils # Seg Neutrophils # Man 10.0 H Lymphocytes # (Manual) 0.1 L Eosinophils # (Manual) 0.6 H PT INR D-Dimer Heparin Anti-Xa Level ABG pH POC ABG pCO2 69.5 H POC ABG pO2 109.3 H ABG pO2 ABG HCO3 ABG O2 Saturation ABG Base Excess ABG Hemoglobin 10.8 L ABG Oxyhemoglobin ABG Sodium ABG Potassium ABG Chloride 95.0 L ABG Glucose 138 H Oxyhemoglobin Carboxyhemoglobin Sodium Potassium Chloride 94.5 L Carbon Dioxide 40 H BUN Creatinine 0.5 L D Glucose 104 H POC Glucose Lactic Acid Calcium Ferritin AST ALT Lactate Dehydrogenase C-Reactive Protein Total Protein Albumin Triglycerides Arterial Blood Glucose 138 H Arterial Blood Ionized Calcium Urine Creatinine Urine Total Protein Vancomycin Trough Coronavirus (PCR) SARS-CoV-2 IgG Ab 07/29/20 07/29/20 07/29/20 11:05 18:17 19:41 WBC RBC Hgb Hct MCH MCHC RDW Plt Count Lymph % (Auto) Lymph # (Auto) Seg Neutrophils % Seg Neuts % (Manual) Lymphocytes % (Manual) Eosinophils % (Manual) Nucleated RBC % Seg Neutrophils # Seg Neutrophils # Man Lymphocytes # (Manual) Eosinophils # (Manual) PT INR D-Dimer Heparin Anti-Xa Level ABG pH 7.305 L POC ABG pCO2 73.3 H 66.7 H POC ABG pO2 28.2 L 32.7 L ABG pO2 ABG HCO3 ABG O2 Saturation ABG Base Excess ABG Hemoglobin 11.8 L 11.5 L ABG Oxyhemoglobin ABG Sodium ABG Potassium ABG Chloride 94.0 L 95.0 L ABG Glucose 207 H 141 H Oxyhemoglobin Carboxyhemoglobin Sodium Potassium Chloride Carbon Dioxide BUN Creatinine Glucose POC Glucose 113 H Lactic Acid Calcium Ferritin AST ALT Lactate Dehydrogenase C-Reactive Protein Total Protein Albumin Triglycerides Arterial Blood Glucose 207 H 141 H Arterial Blood Ionized Calcium 4.5 L Urine Creatinine Urine Total Protein Vancomycin Trough Coronavirus (PCR) SARS-CoV-2 IgG Ab 07/29/20 07/30/20 07/30/20 23:28 04:47 05:28 WBC RBC Hgb Hct MCH MCHC RDW Plt Count Lymph % (Auto) Lymph # (Auto) Seg Neutrophils % Seg Neuts % (Manual) Lymphocytes % (Manual) Eosinophils % (Manual) Nucleated RBC % Seg Neutrophils # Seg Neutrophils # Man Lymphocytes # (Manual) Eosinophils # (Manual) PT INR D-Dimer Heparin Anti-Xa Level ABG pH POC ABG pCO2 55.1 H POC ABG pO2 43.6 L ABG pO2 ABG HCO3 ABG O2 Saturation ABG Base Excess ABG Hemoglobin 11.9 L ABG Oxyhemoglobin ABG Sodium ABG Potassium ABG Chloride 96.0 L ABG Glucose 150 H Oxyhemoglobin Carboxyhemoglobin Sodium Potassium Chloride Carbon Dioxide BUN Creatinine Glucose POC Glucose 121 H 143 H Lactic Acid Calcium Ferritin AST ALT Lactate Dehydrogenase C-Reactive Protein Total Protein Albumin Triglycerides Arterial Blood Glucose 150 H Arterial Blood Ionized Calcium Urine Creatinine Urine Total Protein Vancomycin Trough Coronavirus (PCR) SARS-CoV-2 IgG Ab 07/30/20 07/30/20 07/30/20 08:18 12:00 14:17 WBC RBC Hgb Hct MCH MCHC RDW Plt Count Lymph % (Auto) Lymph # (Auto) Seg Neutrophils % Seg Neuts % (Manual) Lymphocytes % (Manual) Eosinophils % (Manual) Nucleated RBC % Seg Neutrophils # Seg Neutrophils # Man Lymphocytes # (Manual) Eosinophils # (Manual) PT INR D-Dimer Heparin Anti-Xa Level ABG pH POC ABG pCO2 63.3 H 64.6 H POC ABG pO2 47.9 L 41.0 L ABG pO2 ABG HCO3 ABG O2 Saturation ABG Base Excess ABG Hemoglobin 10.5 L 10.2 L ABG Oxyhemoglobin 84.9 L ABG Sodium ABG Potassium ABG Chloride 97.0 L ABG Glucose 170 H 175 H Oxyhemoglobin Carboxyhemoglobin Sodium Potassium Chloride Carbon Dioxide BUN Creatinine Glucose POC Glucose 161 H Lactic Acid Calcium Ferritin AST ALT Lactate Dehydrogenase C-Reactive Protein Total Protein Albumin Triglycerides Arterial Blood Glucose 170 H 175 H Arterial Blood Ionized Calcium 4.4 L 4.4 L Urine Creatinine Urine Total Protein Vancomycin Trough Coronavirus (PCR) SARS-CoV-2 IgG Ab 07/30/20 07/30/20 07/30/20 15:15 15:15 15:15 WBC RBC 2.80 L Hgb 9.1 L Hct 26.0 L D MCH MCHC 35 H RDW Plt Count 101 L Lymph % (Auto) Lymph # (Auto) Seg Neutrophils % Seg Neuts % (Manual) 90.0 H Lymphocytes % (Manual) 7.0 L Eosinophils % (Manual) Nucleated RBC % Seg Neutrophils # Seg Neutrophils # Man Lymphocytes # (Manual) 0.4 L Eosinophils # (Manual) PT INR D-Dimer Heparin Anti-Xa Level ABG pH POC ABG pCO2 POC ABG pO2 ABG pO2 ABG HCO3 ABG O2 Saturation ABG Base Excess ABG Hemoglobin ABG Oxyhemoglobin ABG Sodium ABG Potassium ABG Chloride ABG Glucose Oxyhemoglobin Carboxyhemoglobin Sodium Potassium Chloride 97.1 L Carbon Dioxide 32 H D BUN 39 H Creatinine 1.3 H D Glucose 167 H POC Glucose Lactic Acid Calcium 8.0 L Ferritin AST ALT Lactate Dehydrogenase C-Reactive Protein Total Protein Albumin Triglycerides 837 H Arterial Blood Glucose Arterial Blood Ionized Calcium Urine Creatinine Urine Total Protein Vancomycin Trough Coronavirus (PCR) SARS-CoV-2 IgG Ab 07/30/20 07/30/20 07/30/20 15:15 17:03 17:43 WBC RBC Hgb Hct MCH MCHC RDW Plt Count Lymph % (Auto) Lymph # (Auto) Seg Neutrophils % Seg Neuts % (Manual) Lymphocytes % (Manual) Eosinophils % (Manual) Nucleated RBC % Seg Neutrophils # Seg Neutrophils # Man Lymphocytes # (Manual) Eosinophils # (Manual) PT INR D-Dimer Heparin Anti-Xa Level ABG pH POC ABG pCO2 POC ABG pO2 ABG pO2 ABG HCO3 ABG O2 Saturation ABG Base Excess ABG Hemoglobin ABG Oxyhemoglobin ABG Sodium ABG Potassium ABG Chloride ABG Glucose Oxyhemoglobin Carboxyhemoglobin Sodium Potassium Chloride Carbon Dioxide BUN Creatinine Glucose POC Glucose 171 H Lactic Acid 2.20 H* 3.60 H* Calcium Ferritin AST ALT Lactate Dehydrogenase C-Reactive Protein Total Protein Albumin Triglycerides Arterial Blood Glucose Arterial Blood Ionized Calcium Urine Creatinine Urine Total Protein Vancomycin Trough Coronavirus (PCR) SARS-CoV-2 IgG Ab 07/30/20 07/30/20 07/31/20 20:13 23:37 04:15 WBC RBC Hgb Hct MCH MCHC RDW Plt Count Lymph % (Auto) Lymph # (Auto) Seg Neutrophils % Seg Neuts % (Manual) Lymphocytes % (Manual) Eosinophils % (Manual) Nucleated RBC % Seg Neutrophils # Seg Neutrophils # Man Lymphocytes # (Manual) Eosinophils # (Manual) PT INR D-Dimer Heparin Anti-Xa Level ABG pH 7.544 H 7.489 H POC ABG pCO2 POC ABG pO2 44.4 L 50.0 L ABG pO2 ABG HCO3 ABG O2 Saturation ABG Base Excess ABG Hemoglobin 10.4 L ABG Oxyhemoglobin ABG Sodium 135.3 L ABG Potassium ABG Chloride ABG Glucose 201 H 199 H Oxyhemoglobin Carboxyhemoglobin Sodium Potassium Chloride Carbon Dioxide BUN Creatinine Glucose POC Glucose 160 H Lactic Acid Calcium Ferritin AST ALT Lactate Dehydrogenase C-Reactive Protein Total Protein Albumin Triglycerides Arterial Blood Glucose 201 H 199 H Arterial Blood Ionized Calcium 4.2 L 4.4 L Urine Creatinine Urine Total Protein Vancomycin Trough Coronavirus (PCR) SARS-CoV-2 IgG Ab 07/31/20 07/31/20 07/31/20 05:16 05:16 05:28 WBC RBC 3.03 L Hgb 9.2 L Hct 27.6 L MCH MCHC RDW Plt Count 118 L Lymph % (Auto) 6.3 L Lymph # (Auto) 0.5 L Seg Neutrophils % Seg Neuts % (Manual) Lymphocytes % (Manual) Eosinophils % (Manual) Nucleated RBC % Seg Neutrophils # Seg Neutrophils # Man Lymphocytes # (Manual) Eosinophils # (Manual) PT INR D-Dimer Heparin Anti-Xa Level ABG pH POC ABG pCO2 POC ABG pO2 ABG pO2 ABG HCO3 ABG O2 Saturation ABG Base Excess ABG Hemoglobin ABG Oxyhemoglobin ABG Sodium ABG Potassium ABG Chloride ABG Glucose Oxyhemoglobin Carboxyhemoglobin Sodium Potassium Chloride Carbon Dioxide BUN 57 H Creatinine 1.7 H Glucose 208 H POC Glucose 182 H Lactic Acid Calcium 8.3 L Ferritin AST 613 H ALT 760 H Lactate Dehydrogenase C-Reactive Protein Total Protein 5.6 L Albumin 2.2 L Triglycerides Arterial Blood Glucose Arterial Blood Ionized Calcium Urine Creatinine Urine Total Protein Vancomycin Trough Coronavirus (PCR) SARS-CoV-2 IgG Ab 07/31/20 07/31/20 07/31/20 11:02 14:14 14:14 WBC RBC Hgb Hct MCH MCHC RDW Plt Count Lymph % (Auto) Lymph # (Auto) Seg Neutrophils % Seg Neuts % (Manual) Lymphocytes % (Manual) Eosinophils % (Manual) Nucleated RBC % Seg Neutrophils # Seg Neutrophils # Man Lymphocytes # (Manual) Eosinophils # (Manual) PT INR D-Dimer 2522.40 H Heparin Anti-Xa Level ABG pH POC ABG pCO2 POC ABG pO2 ABG pO2 ABG HCO3 ABG O2 Saturation ABG Base Excess ABG Hemoglobin ABG Oxyhemoglobin ABG Sodium ABG Potassium ABG Chloride ABG Glucose Oxyhemoglobin Carboxyhemoglobin Sodium Potassium Chloride Carbon Dioxide BUN Creatinine Glucose POC Glucose 200 H Lactic Acid Calcium Ferritin 964.8 H AST ALT Lactate Dehydrogenase C-Reactive Protein Total Protein Albumin Triglycerides Arterial Blood Glucose Arterial Blood Ionized Calcium Urine Creatinine Urine Total Protein Vancomycin Trough Coronavirus (PCR) SARS-CoV-2 IgG Ab 07/31/20 07/31/20 07/31/20 14:14 14:14 16:00 WBC RBC Hgb Hct MCH MCHC RDW Plt Count Lymph % (Auto) Lymph # (Auto) Seg Neutrophils % Seg Neuts % (Manual) Lymphocytes % (Manual) Eosinophils % (Manual) Nucleated RBC % Seg Neutrophils # Seg Neutrophils # Man Lymphocytes # (Manual) Eosinophils # (Manual) PT INR D-Dimer Heparin Anti-Xa Level ABG pH POC ABG pCO2 POC ABG pO2 ABG pO2 ABG HCO3 ABG O2 Saturation ABG Base Excess ABG Hemoglobin ABG Oxyhemoglobin ABG Sodium ABG Potassium ABG Chloride ABG Glucose Oxyhemoglobin Carboxyhemoglobin Sodium Potassium Chloride Carbon Dioxide BUN Creatinine Glucose POC Glucose Lactic Acid Calcium Ferritin AST ALT Lactate Dehydrogenase 585 H C-Reactive Protein 49.00 H Total Protein Albumin Triglycerides Arterial Blood Glucose Arterial Blood Ionized Calcium Urine Creatinine 89.2 H Urine Total Protein 108 H Vancomycin Trough 28.2 H Coronavirus (PCR) SARS-CoV-2 IgG Ab 07/31/20 07/31/20 08/01/20 17:22 21:26 00:07 WBC RBC Hgb Hct MCH MCHC RDW Plt Count Lymph % (Auto) Lymph # (Auto) Seg Neutrophils % Seg Neuts % (Manual) Lymphocytes % (Manual) Eosinophils % (Manual) Nucleated RBC % Seg Neutrophils # Seg Neutrophils # Man Lymphocytes # (Manual) Eosinophils # (Manual) PT INR D-Dimer Heparin Anti-Xa Level ABG pH POC ABG pCO2 POC ABG pO2 156.0 H ABG pO2 ABG HCO3 ABG O2 Saturation ABG Base Excess ABG Hemoglobin 9.6 L ABG Oxyhemoglobin 98.4 H ABG Sodium 135.9 L ABG Potassium ABG Chloride ABG Glucose 290 H Oxyhemoglobin Carboxyhemoglobin 0.4 L Sodium Potassium Chloride Carbon Dioxide BUN Creatinine Glucose POC Glucose 229 H 255 H Lactic Acid Calcium Ferritin AST ALT Lactate Dehydrogenase C-Reactive Protein Total Protein Albumin Triglycerides Arterial Blood Glucose 290 H Arterial Blood Ionized Calcium 4.5 L Urine Creatinine Urine Total Protein Vancomycin Trough Coronavirus (PCR) SARS-CoV-2 IgG Ab 08/01/20 08/01/20 08/01/20 04:46 05:30 05:30 WBC RBC 2.27 L Hgb 7.6 L Hct 20.9 L D MCH 34 H MCHC 37 H RDW Plt Count 85 L Lymph % (Auto) Lymph # (Auto) Seg Neutrophils % Seg Neuts % (Manual) 87.0 H Lymphocytes % (Manual) 2.0 L Eosinophils % (Manual) Nucleated RBC % 1.0 H Seg Neutrophils # Seg Neutrophils # Man Lymphocytes # (Manual) 0.1 L Eosinophils # (Manual) PT INR D-Dimer Heparin Anti-Xa Level ABG pH 7.462 H POC ABG pCO2 POC ABG pO2 70.2 L ABG pO2 ABG HCO3 ABG O2 Saturation ABG Base Excess ABG Hemoglobin 8.7 L ABG Oxyhemoglobin ABG Sodium 135.7 L ABG Potassium 3.3 L ABG Chloride ABG Glucose 275 H Oxyhemoglobin Carboxyhemoglobin Sodium 132 L D Potassium 2.8 L* D Chloride Carbon Dioxide BUN 47 H Creatinine Glucose 217 H POC Glucose Lactic Acid Calcium 6.6 L D Ferritin AST 117 H ALT 408 H Lactate Dehydrogenase C-Reactive Protein Total Protein 4.3 L D Albumin 0.6 L Triglycerides 2335 H Arterial Blood Glucose 275 H Arterial Blood Ionized Calcium 4.5 L Urine Creatinine Urine Total Protein Vancomycin Trough Coronavirus (PCR) SARS-CoV-2 IgG Ab 08/01/20 08/01/20 08/01/20 05:34 09:33 11:50 WBC RBC Hgb Hct MCH MCHC RDW Plt Count Lymph % (Auto) Lymph # (Auto) Seg Neutrophils % Seg Neuts % (Manual) Lymphocytes % (Manual) Eosinophils % (Manual) Nucleated RBC % Seg Neutrophils # Seg Neutrophils # Man Lymphocytes # (Manual) Eosinophils # (Manual) PT INR D-Dimer Heparin Anti-Xa Level ABG pH POC ABG pCO2 POC ABG pO2 ABG pO2 ABG HCO3 ABG O2 Saturation ABG Base Excess ABG Hemoglobin ABG Oxyhemoglobin ABG Sodium ABG Potassium ABG Chloride ABG Glucose Oxyhemoglobin Carboxyhemoglobin Sodium Potassium Chloride Carbon Dioxide BUN 57 H Creatinine Glucose 250 H POC Glucose 246 H 239 H Lactic Acid Calcium 8.2 L D Ferritin AST ALT Lactate Dehydrogenase C-Reactive Protein Total Protein Albumin Triglycerides 759 H Arterial Blood Glucose Arterial Blood Ionized Calcium Urine Creatinine Urine Total Protein Vancomycin Trough Coronavirus (PCR) SARS-CoV-2 IgG Ab 08/01/20 08/01/20 08/02/20 17:14 23:21 04:22 WBC RBC Hgb Hct MCH MCHC RDW Plt Count Lymph % (Auto) Lymph # (Auto) Seg Neutrophils % Seg Neuts % (Manual) Lymphocytes % (Manual) Eosinophils % (Manual) Nucleated RBC % Seg Neutrophils # Seg Neutrophils # Man Lymphocytes # (Manual) Eosinophils # (Manual) PT INR D-Dimer Heparin Anti-Xa Level ABG pH 7.268 L POC ABG pCO2 56.6 H POC ABG pO2 ABG pO2 ABG HCO3 ABG O2 Saturation ABG Base Excess ABG Hemoglobin 8.4 L ABG Oxyhemoglobin ABG Sodium ABG Potassium 4.9 H ABG Chloride ABG Glucose 261 H Oxyhemoglobin Carboxyhemoglobin Sodium Potassium Chloride Carbon Dioxide BUN Creatinine Glucose POC Glucose 219 H 242 H Lactic Acid Calcium Ferritin AST ALT Lactate Dehydrogenase C-Reactive Protein Total Protein Albumin Triglycerides Arterial Blood Glucose 261 H Arterial Blood Ionized Calcium Urine Creatinine Urine Total Protein Vancomycin Trough Coronavirus (PCR) SARS-CoV-2 IgG Ab 08/02/20 08/02/20 08/02/20 05:05 06:37 06:37 WBC RBC 3.40 L Hgb 10.0 L Hct MCH MCHC RDW 16.2 H Plt Count 87 L Lymph % (Auto) Lymph # (Auto) Seg Neutrophils % Seg Neuts % (Manual) 82.0 H Lymphocytes % (Manual) 3.0 L Eosinophils % (Manual) Nucleated RBC % 2.0 H Seg Neutrophils # Seg Neutrophils # Man 9.0 H Lymphocytes # (Manual) 0.3 L Eosinophils # (Manual) PT INR D-Dimer Heparin Anti-Xa Level ABG pH POC ABG pCO2 POC ABG pO2 ABG pO2 ABG HCO3 ABG O2 Saturation ABG Base Excess ABG Hemoglobin ABG Oxyhemoglobin ABG Sodium ABG Potassium ABG Chloride ABG Glucose Oxyhemoglobin Carboxyhemoglobin Sodium Potassium 5.3 H D Chloride Carbon Dioxide BUN 53 H Creatinine Glucose 267 H POC Glucose 254 H Lactic Acid Calcium 8.1 L Ferritin AST 43 H ALT 334 H Lactate Dehydrogenase C-Reactive Protein Total Protein 5.4 L D Albumin 1.9 L Triglycerides Arterial Blood Glucose Arterial Blood Ionized Calcium Urine Creatinine Urine Total Protein Vancomycin Trough Coronavirus (PCR) SARS-CoV-2 IgG Ab 08/02/20 08/02/20 08/02/20 06:37 11:34 17:04 WBC RBC Hgb Hct MCH MCHC RDW Plt Count Lymph % (Auto) Lymph # (Auto) Seg Neutrophils % Seg Neuts % (Manual) Lymphocytes % (Manual) Eosinophils % (Manual) Nucleated RBC % Seg Neutrophils # Seg Neutrophils # Man Lymphocytes # (Manual) Eosinophils # (Manual) PT INR D-Dimer Heparin Anti-Xa Level ABG pH POC ABG pCO2 POC ABG pO2 ABG pO2 ABG HCO3 ABG O2 Saturation ABG Base Excess ABG Hemoglobin ABG Oxyhemoglobin ABG Sodium ABG Potassium ABG Chloride ABG Glucose Oxyhemoglobin Carboxyhemoglobin Sodium Potassium Chloride Carbon Dioxide BUN Creatinine Glucose POC Glucose 279 H 256 H Lactic Acid Calcium Ferritin AST ALT Lactate Dehydrogenase C-Reactive Protein Total Protein Albumin Triglycerides 717 H Arterial Blood Glucose Arterial Blood Ionized Calcium Urine Creatinine Urine Total Protein Vancomycin Trough Coronavirus (PCR) SARS-CoV-2 IgG Ab 08/02/20 08/03/20 08/03/20 23:23 01:25 04:49 WBC 13.2 H RBC 2.83 L Hgb 8.4 L Hct 26.3 L MCH MCHC RDW 16.4 H Plt Count Lymph % (Auto) Lymph # (Auto) Seg Neutrophils % Seg Neuts % (Manual) Lymphocytes % (Manual) 2.0 L Eosinophils % (Manual) Nucleated RBC % 1.0 H Seg Neutrophils # Seg Neutrophils # Man 7.8 H Lymphocytes # (Manual) 0.3 L Eosinophils # (Manual) PT INR D-Dimer Heparin Anti-Xa Level ABG pH 7.302 L POC ABG pCO2 56.0 H POC ABG pO2 39.6 L ABG pO2 ABG HCO3 ABG O2 Saturation ABG Base Excess ABG Hemoglobin 9.1 L ABG Oxyhemoglobin ABG Sodium ABG Potassium 4.8 H ABG Chloride 108.0 H ABG Glucose 275 H Oxyhemoglobin Carboxyhemoglobin Sodium Potassium Chloride Carbon Dioxide BUN Creatinine Glucose POC Glucose 214 H Lactic Acid Calcium Ferritin AST ALT Lactate Dehydrogenase C-Reactive Protein Total Protein Albumin Triglycerides Arterial Blood Glucose 275 H Arterial Blood Ionized Calcium Urine Creatinine Urine Total Protein Vancomycin Trough Coronavirus (PCR) SARS-CoV-2 IgG Ab 08/03/20 08/03/20 08/03/20 04:49 04:49 05:11 WBC RBC Hgb Hct MCH MCHC RDW Plt Count Lymph % (Auto) Lymph # (Auto) Seg Neutrophils % Seg Neuts % (Manual) Lymphocytes % (Manual) Eosinophils % (Manual) Nucleated RBC % Seg Neutrophils # Seg Neutrophils # Man Lymphocytes # (Manual) Eosinophils # (Manual) PT INR D-Dimer Heparin Anti-Xa Level ABG pH POC ABG pCO2 POC ABG pO2 ABG pO2 ABG HCO3 ABG O2 Saturation ABG Base Excess ABG Hemoglobin ABG Oxyhemoglobin ABG Sodium ABG Potassium ABG Chloride ABG Glucose Oxyhemoglobin Carboxyhemoglobin Sodium Potassium Chloride Carbon Dioxide BUN 39 H Creatinine Glucose 263 H POC Glucose 230 H Lactic Acid Calcium 8.1 L Ferritin AST ALT 242 H Lactate Dehydrogenase C-Reactive Protein Total Protein 5.4 L Albumin 2.2 L Triglycerides 500 H Arterial Blood Glucose Arterial Blood Ionized Calcium Urine Creatinine Urine Total Protein Vancomycin Trough Coronavirus (PCR) SARS-CoV-2 IgG Ab 08/03/20 08/03/20 08/03/20 11:55 17:07 23:25 WBC RBC Hgb Hct MCH MCHC RDW Plt Count Lymph % (Auto) Lymph # (Auto) Seg Neutrophils % Seg Neuts % (Manual) Lymphocytes % (Manual) Eosinophils % (Manual) Nucleated RBC % Seg Neutrophils # Seg Neutrophils # Man Lymphocytes # (Manual) Eosinophils # (Manual) PT INR D-Dimer Heparin Anti-Xa Level ABG pH POC ABG pCO2 POC ABG pO2 ABG pO2 ABG HCO3 ABG O2 Saturation ABG Base Excess ABG Hemoglobin ABG Oxyhemoglobin ABG Sodium ABG Potassium ABG Chloride ABG Glucose Oxyhemoglobin Carboxyhemoglobin Sodium Potassium Chloride Carbon Dioxide BUN Creatinine Glucose POC Glucose 238 H 205 H 211 H Lactic Acid Calcium Ferritin AST ALT Lactate Dehydrogenase C-Reactive Protein Total Protein Albumin Triglycerides Arterial Blood Glucose Arterial Blood Ionized Calcium Urine Creatinine Urine Total Protein Vancomycin Trough Coronavirus (PCR) SARS-CoV-2 IgG Ab 08/04/20 08/04/20 08/04/20 03:16 05:31 12:07 WBC RBC Hgb Hct MCH MCHC RDW Plt Count Lymph % (Auto) Lymph # (Auto) Seg Neutrophils % Seg Neuts % (Manual) Lymphocytes % (Manual) Eosinophils % (Manual) Nucleated RBC % Seg Neutrophils # Seg Neutrophils # Man Lymphocytes # (Manual) Eosinophils # (Manual) PT INR D-Dimer Heparin Anti-Xa Level ABG pH 7.154 L POC ABG pCO2 80.7 H POC ABG pO2 ABG pO2 ABG HCO3 ABG O2 Saturation ABG Base Excess ABG Hemoglobin 8.5 L ABG Oxyhemoglobin ABG Sodium ABG Potassium 5.1 H ABG Chloride 109.0 H ABG Glucose 226 H Oxyhemoglobin Carboxyhemoglobin Sodium Potassium Chloride Carbon Dioxide BUN Creatinine Glucose POC Glucose 201 H 213 H Lactic Acid Calcium Ferritin AST ALT Lactate Dehydrogenase C-Reactive Protein Total Protein Albumin Triglycerides Arterial Blood Glucose 226 H Arterial Blood Ionized Calcium Urine Creatinine Urine Total Protein Vancomycin Trough Coronavirus (PCR) SARS-CoV-2 IgG Ab 08/04/20 08/04/20 08/04/20 17:39 23:17 Unknown WBC RBC 2.38 L Hgb 7.1 L Hct 22.4 L MCH MCHC RDW 16.5 H Plt Count Lymph % (Auto) Lymph # (Auto) Seg Neutrophils % Seg Neuts % (Manual) Lymphocytes % (Manual) 1.0 L Eosinophils % (Manual) Nucleated RBC % Seg Neutrophils # Seg Neutrophils # Man Lymphocytes # (Manual) 0.1 L Eosinophils # (Manual) PT INR D-Dimer Heparin Anti-Xa Level ABG pH POC ABG pCO2 POC ABG pO2 ABG pO2 ABG HCO3 ABG O2 Saturation ABG Base Excess ABG Hemoglobin ABG Oxyhemoglobin ABG Sodium ABG Potassium ABG Chloride ABG Glucose Oxyhemoglobin Carboxyhemoglobin Sodium Potassium Chloride Carbon Dioxide BUN Creatinine Glucose POC Glucose 155 H 107 H Lactic Acid Calcium Ferritin AST ALT Lactate Dehydrogenase C-Reactive Protein Total Protein Albumin Triglycerides Arterial Blood Glucose Arterial Blood Ionized Calcium Urine Creatinine Urine Total Protein Vancomycin Trough Coronavirus (PCR) SARS-CoV-2 IgG Ab 08/04/20 08/05/20 08/05/20 Unknown 05:14 05:50 WBC RBC Hgb Hct MCH MCHC RDW Plt Count Lymph % (Auto) Lymph # (Auto) Seg Neutrophils % Seg Neuts % (Manual) Lymphocytes % (Manual) Eosinophils % (Manual) Nucleated RBC % Seg Neutrophils # Seg Neutrophils # Man Lymphocytes # (Manual) Eosinophils # (Manual) PT INR D-Dimer Heparin Anti-Xa Level ABG pH POC ABG pCO2 51.7 H POC ABG pO2 63.3 L ABG pO2 ABG HCO3 ABG O2 Saturation ABG Base Excess ABG Hemoglobin 9.9 L ABG Oxyhemoglobin ABG Sodium 146.9 H ABG Potassium ABG Chloride 113.0 H ABG Glucose 112 H Oxyhemoglobin Carboxyhemoglobin Sodium Potassium Chloride 113.1 H Carbon Dioxide BUN 27 H Creatinine 0.5 L Glucose 190 H POC Glucose 126 H Lactic Acid Calcium 7.5 L Ferritin AST ALT 134 H Lactate Dehydrogenase C-Reactive Protein Total Protein 4.7 L Albumin 2.2 L Triglycerides Arterial Blood Glucose 112 H Arterial Blood Ionized Calcium Urine Creatinine Urine Total Protein Vancomycin Trough Coronavirus (PCR) SARS-CoV-2 IgG Ab 08/05/20 08/05/20 08/05/20 08:30 08:30 11:19 WBC 16.5 H RBC 2.79 L Hgb 8.3 L Hct 26.1 L MCH MCHC RDW 16.7 H Plt Count Lymph % (Auto) Lymph # (Auto) Seg Neutrophils % Seg Neuts % (Manual) Lymphocytes % (Manual) 6.0 L Eosinophils % (Manual) Nucleated RBC % Seg Neutrophils # Seg Neutrophils # Man 10.1 H Lymphocytes # (Manual) 1.0 L Eosinophils # (Manual) PT INR D-Dimer Heparin Anti-Xa Level ABG pH POC ABG pCO2 POC ABG pO2 ABG pO2 ABG HCO3 ABG O2 Saturation ABG Base Excess ABG Hemoglobin ABG Oxyhemoglobin ABG Sodium ABG Potassium ABG Chloride ABG Glucose Oxyhemoglobin Carboxyhemoglobin Sodium 149 H Potassium Chloride 112.9 H Carbon Dioxide 32 H D BUN 25 H Creatinine Glucose 184 H POC Glucose 185 H Lactic Acid Calcium Ferritin AST ALT 115 H Lactate Dehydrogenase C-Reactive Protein Total Protein 5.5 L Albumin 2.3 L Triglycerides Arterial Blood Glucose Arterial Blood Ionized Calcium Urine Creatinine Urine Total Protein Vancomycin Trough Coronavirus (PCR) SARS-CoV-2 IgG Ab 08/05/20 08/05/20 08/05/20 13:35 13:35 13:35 WBC RBC Hgb 7.7 L Hct 24.6 L MCH MCHC RDW Plt Count Lymph % (Auto) Lymph # (Auto) Seg Neutrophils % Seg Neuts % (Manual) Lymphocytes % (Manual) Eosinophils % (Manual) Nucleated RBC % Seg Neutrophils # Seg Neutrophils # Man Lymphocytes # (Manual) Eosinophils # (Manual) PT 15.4 H INR 1.22 H D-Dimer 4748.32 H Heparin Anti-Xa Level ABG pH POC ABG pCO2 POC ABG pO2 ABG pO2 ABG HCO3 ABG O2 Saturation ABG Base Excess ABG Hemoglobin ABG Oxyhemoglobin ABG Sodium ABG Potassium ABG Chloride ABG Glucose Oxyhemoglobin Carboxyhemoglobin Sodium Potassium Chloride Carbon Dioxide BUN Creatinine Glucose POC Glucose Lactic Acid Calcium Ferritin AST ALT Lactate Dehydrogenase C-Reactive Protein 26.40 H Total Protein Albumin Triglycerides 337 H Arterial Blood Glucose Arterial Blood Ionized Calcium Urine Creatinine Urine Total Protein Vancomycin Trough Coronavirus (PCR) SARS-CoV-2 IgG Ab 08/05/20 08/05/20 08/05/20 16:56 20:07 23:29 WBC RBC Hgb Hct MCH MCHC RDW Plt Count Lymph % (Auto) Lymph # (Auto) Seg Neutrophils % Seg Neuts % (Manual) Lymphocytes % (Manual) Eosinophils % (Manual) Nucleated RBC % Seg Neutrophils # Seg Neutrophils # Man Lymphocytes # (Manual) Eosinophils # (Manual) PT INR D-Dimer Heparin Anti-Xa Level ABG pH POC ABG pCO2 POC ABG pO2 ABG pO2 ABG HCO3 ABG O2 Saturation ABG Base Excess ABG Hemoglobin ABG Oxyhemoglobin ABG Sodium ABG Potassium ABG Chloride ABG Glucose Oxyhemoglobin Carboxyhemoglobin Sodium Potassium Chloride Carbon Dioxide BUN Creatinine Glucose POC Glucose 120 H 156 H Lactic Acid Calcium Ferritin AST ALT Lactate Dehydrogenase C-Reactive Protein Total Protein Albumin Triglycerides Arterial Blood Glucose Arterial Blood Ionized Calcium Urine Creatinine Urine Total Protein Vancomycin Trough 27.0 H Coronavirus (PCR) SARS-CoV-2 IgG Ab 08/06/20 08/06/20 08/06/20 04:00 04:00 05:32 WBC 12.6 H RBC 2.40 L Hgb 7.2 L Hct 22.4 L MCH MCHC RDW 16.9 H Plt Count Lymph % (Auto) Lymph # (Auto) Seg Neutrophils % Seg Neuts % (Manual) 86.0 H Lymphocytes % (Manual) 5.0 L Eosinophils % (Manual) Nucleated RBC % Seg Neutrophils # Seg Neutrophils # Man 10.8 H Lymphocytes # (Manual) 0.6 L Eosinophils # (Manual) PT INR D-Dimer Heparin Anti-Xa Level ABG pH POC ABG pCO2 POC ABG pO2 ABG pO2 ABG HCO3 ABG O2 Saturation ABG Base Excess ABG Hemoglobin ABG Oxyhemoglobin ABG Sodium ABG Potassium ABG Chloride ABG Glucose Oxyhemoglobin Carboxyhemoglobin Sodium 147 H Potassium Chloride 112.5 H Carbon Dioxide BUN 27 H Creatinine Glucose 193 H POC Glucose 155 H Lactic Acid Calcium 8.3 L Ferritin AST ALT 77 H Lactate Dehydrogenase C-Reactive Protein Total Protein 5.0 L Albumin 2.2 L Triglycerides Arterial Blood Glucose Arterial Blood Ionized Calcium Urine Creatinine Urine Total Protein Vancomycin Trough Coronavirus (PCR) SARS-CoV-2 IgG Ab 08/06/20 08/06/20 08/06/20 09:31 11:55 17:44 WBC RBC Hgb Hct MCH MCHC RDW Plt Count Lymph % (Auto) Lymph # (Auto) Seg Neutrophils % Seg Neuts % (Manual) Lymphocytes % (Manual) Eosinophils % (Manual) Nucleated RBC % Seg Neutrophils # Seg Neutrophils # Man Lymphocytes # (Manual) Eosinophils # (Manual) PT INR D-Dimer Heparin Anti-Xa Level ABG pH POC ABG pCO2 POC ABG pO2 ABG pO2 ABG HCO3 ABG O2 Saturation ABG Base Excess ABG Hemoglobin ABG Oxyhemoglobin ABG Sodium ABG Potassium ABG Chloride ABG Glucose Oxyhemoglobin Carboxyhemoglobin Sodium Potassium Chloride Carbon Dioxide BUN Creatinine Glucose POC Glucose 140 H 151 H 132 H Lactic Acid Calcium Ferritin AST ALT Lactate Dehydrogenase C-Reactive Protein Total Protein Albumin Triglycerides Arterial Blood Glucose Arterial Blood Ionized Calcium Urine Creatinine Urine Total Protein Vancomycin Trough Coronavirus (PCR) SARS-CoV-2 IgG Ab 08/06/20 08/06/20 08/06/20 21:11 23:21 Unknown WBC RBC Hgb Hct MCH MCHC RDW Plt Count Lymph % (Auto) Lymph # (Auto) Seg Neutrophils % Seg Neuts % (Manual) Lymphocytes % (Manual) Eosinophils % (Manual) Nucleated RBC % Seg Neutrophils # Seg Neutrophils # Man Lymphocytes # (Manual) Eosinophils # (Manual) PT INR D-Dimer Heparin Anti-Xa Level ABG pH POC ABG pCO2 49.3 H 50.5 H POC ABG pO2 62.1 L 70.5 L ABG pO2 ABG HCO3 ABG O2 Saturation ABG Base Excess ABG Hemoglobin 8.6 L 8.3 L ABG Oxyhemoglobin 90.2 L ABG Sodium ABG Potassium ABG Chloride 111.0 H 113.0 H ABG Glucose 171 H 204 H Oxyhemoglobin Carboxyhemoglobin 1.7 H Sodium Potassium Chloride Carbon Dioxide BUN Creatinine Glucose POC Glucose 160 H Lactic Acid Calcium Ferritin AST ALT Lactate Dehydrogenase C-Reactive Protein Total Protein Albumin Triglycerides Arterial Blood Glucose 171 H 204 H Arterial Blood Ionized Calcium Urine Creatinine Urine Total Protein Vancomycin Trough Coronavirus (PCR) SARS-CoV-2 IgG Ab 08/07/20 08/07/20 08/07/20 02:06 02:06 04:00 WBC 18.0 H RBC 2.91 L Hgb 8.5 L Hct 27.2 L MCH MCHC RDW 17.7 H Plt Count Lymph % (Auto) 5.3 L Lymph # (Auto) 1.0 L Seg Neutrophils % Seg Neuts % (Manual) Lymphocytes % (Manual) Eosinophils % (Manual) Nucleated RBC % Seg Neutrophils # 16.6 H Seg Neutrophils # Man Lymphocytes # (Manual) Eosinophils # (Manual) PT INR D-Dimer Heparin Anti-Xa Level ABG pH POC ABG pCO2 POC ABG pO2 ABG pO2 111.4 H ABG HCO3 27.6 H ABG O2 Saturation ABG Base Excess ABG Hemoglobin 8.5 L ABG Oxyhemoglobin ABG Sodium ABG Potassium ABG Chloride ABG Glucose Oxyhemoglobin Carboxyhemoglobin Sodium 146 H Potassium Chloride 110.9 H Carbon Dioxide BUN 27 H Creatinine 0.5 L Glucose 187 H POC Glucose Lactic Acid Calcium Ferritin AST ALT Lactate Dehydrogenase C-Reactive Protein Total Protein Albumin Triglycerides Arterial Blood Glucose Arterial Blood Ionized Calcium Urine Creatinine Urine Total Protein Vancomycin Trough Coronavirus (PCR) SARS-CoV-2 IgG Ab 08/07/20 08/07/20 08/07/20 05:28 11:15 12:09 WBC RBC Hgb Hct MCH MCHC RDW Plt Count Lymph % (Auto) Lymph # (Auto) Seg Neutrophils % Seg Neuts % (Manual) Lymphocytes % (Manual) Eosinophils % (Manual) Nucleated RBC % Seg Neutrophils # Seg Neutrophils # Man Lymphocytes # (Manual) Eosinophils # (Manual) PT INR D-Dimer Heparin Anti-Xa Level 0.15 L ABG pH POC ABG pCO2 POC ABG pO2 ABG pO2 ABG HCO3 ABG O2 Saturation ABG Base Excess ABG Hemoglobin ABG Oxyhemoglobin ABG Sodium ABG Potassium ABG Chloride ABG Glucose Oxyhemoglobin Carboxyhemoglobin Sodium Potassium Chloride Carbon Dioxide BUN Creatinine Glucose POC Glucose 161 H 191 H Lactic Acid Calcium Ferritin AST ALT Lactate Dehydrogenase C-Reactive Protein Total Protein Albumin Triglycerides Arterial Blood Glucose Arterial Blood Ionized Calcium Urine Creatinine Urine Total Protein Vancomycin Trough Coronavirus (PCR) SARS-CoV-2 IgG Ab 08/07/20 08/07/20 08/07/20 18:25 22:31 23:39 WBC RBC Hgb Hct MCH MCHC RDW Plt Count Lymph % (Auto) Lymph # (Auto) Seg Neutrophils % Seg Neuts % (Manual) Lymphocytes % (Manual) Eosinophils % (Manual) Nucleated RBC % Seg Neutrophils # Seg Neutrophils # Man Lymphocytes # (Manual) Eosinophils # (Manual) PT INR D-Dimer Heparin Anti-Xa Level 0.25 L ABG pH POC ABG pCO2 POC ABG pO2 ABG pO2 ABG HCO3 ABG O2 Saturation ABG Base Excess ABG Hemoglobin ABG Oxyhemoglobin ABG Sodium ABG Potassium ABG Chloride ABG Glucose Oxyhemoglobin Carboxyhemoglobin Sodium Potassium Chloride Carbon Dioxide BUN Creatinine Glucose POC Glucose 195 H 220 H Lactic Acid Calcium Ferritin AST ALT Lactate Dehydrogenase C-Reactive Protein Total Protein Albumin Triglycerides Arterial Blood Glucose Arterial Blood Ionized Calcium Urine Creatinine Urine Total Protein Vancomycin Trough Coronavirus (PCR) SARS-CoV-2 IgG Ab 08/08/20 08/08/20 08/08/20 05:54 11:56 18:22 WBC RBC Hgb Hct MCH MCHC RDW Plt Count Lymph % (Auto) Lymph # (Auto) Seg Neutrophils % Seg Neuts % (Manual) Lymphocytes % (Manual) Eosinophils % (Manual) Nucleated RBC % Seg Neutrophils # Seg Neutrophils # Man Lymphocytes # (Manual) Eosinophils # (Manual) PT INR D-Dimer Heparin Anti-Xa Level ABG pH POC ABG pCO2 POC ABG pO2 ABG pO2 ABG HCO3 ABG O2 Saturation ABG Base Excess ABG Hemoglobin ABG Oxyhemoglobin ABG Sodium ABG Potassium ABG Chloride ABG Glucose Oxyhemoglobin Carboxyhemoglobin Sodium Potassium Chloride Carbon Dioxide BUN Creatinine Glucose POC Glucose 232 H 155 H 134 H Lactic Acid Calcium Ferritin AST ALT Lactate Dehydrogenase C-Reactive Protein Total Protein Albumin Triglycerides Arterial Blood Glucose Arterial Blood Ionized Calcium Urine Creatinine Urine Total Protein Vancomycin Trough Coronavirus (PCR) SARS-CoV-2 IgG Ab 08/09/20 08/09/20 08/09/20 05:38 05:38 11:55 WBC RBC Hgb Hct MCH MCHC RDW Plt Count Lymph % (Auto) Lymph # (Auto) Seg Neutrophils % Seg Neuts % (Manual) Lymphocytes % (Manual) Eosinophils % (Manual) Nucleated RBC % Seg Neutrophils # Seg Neutrophils # Man Lymphocytes # (Manual) Eosinophils # (Manual) PT INR D-Dimer Heparin Anti-Xa Level ABG pH POC ABG pCO2 52.0 H POC ABG pO2 54.1 L ABG pO2 ABG HCO3 ABG O2 Saturation ABG Base Excess ABG Hemoglobin 10.2 L ABG Oxyhemoglobin ABG Sodium ABG Potassium ABG Chloride 108.0 H ABG Glucose 124 H Oxyhemoglobin Carboxyhemoglobin Sodium Potassium Chloride 108.2 H Carbon Dioxide BUN 22 H Creatinine Glucose POC Glucose 130 H Lactic Acid Calcium Ferritin AST ALT Lactate Dehydrogenase C-Reactive Protein Total Protein Albumin Triglycerides Arterial Blood Glucose 124 H Arterial Blood Ionized Calcium Urine Creatinine Urine Total Protein Vancomycin Trough Coronavirus (PCR) SARS-CoV-2 IgG Ab 08/09/20 08/09/20 08/09/20 11:55 18:12 23:09 WBC RBC Hgb 8.9 L Hct 28.4 L MCH MCHC RDW Plt Count Lymph % (Auto) Lymph # (Auto) Seg Neutrophils % Seg Neuts % (Manual) Lymphocytes % (Manual) Eosinophils % (Manual) Nucleated RBC % Seg Neutrophils # Seg Neutrophils # Man Lymphocytes # (Manual) Eosinophils # (Manual) PT INR D-Dimer Heparin Anti-Xa Level ABG pH POC ABG pCO2 POC ABG pO2 ABG pO2 ABG HCO3 ABG O2 Saturation ABG Base Excess ABG Hemoglobin ABG Oxyhemoglobin ABG Sodium ABG Potassium ABG Chloride ABG Glucose Oxyhemoglobin Carboxyhemoglobin Sodium Potassium Chloride Carbon Dioxide BUN Creatinine Glucose POC Glucose 135 H 132 H Lactic Acid Calcium Ferritin AST ALT Lactate Dehydrogenase C-Reactive Protein Total Protein Albumin Triglycerides Arterial Blood Glucose Arterial Blood Ionized Calcium Urine Creatinine Urine Total Protein Vancomycin Trough Coronavirus (PCR) SARS-CoV-2 IgG Ab 08/10/20 08/10/20 08/10/20 05:00 05:00 05:38 WBC 14.6 H RBC 2.63 L Hgb 7.8 L Hct 24.6 L MCH MCHC RDW 17.9 H Plt Count Lymph % (Auto) Lymph # (Auto) Seg Neutrophils % Seg Neuts % (Manual) Lymphocytes % (Manual) Eosinophils % (Manual) Nucleated RBC % Seg Neutrophils # Seg Neutrophils # Man Lymphocytes # (Manual) Eosinophils # (Manual) PT INR D-Dimer Heparin Anti-Xa Level ABG pH POC ABG pCO2 POC ABG pO2 ABG pO2 ABG HCO3 ABG O2 Saturation ABG Base Excess ABG Hemoglobin ABG Oxyhemoglobin ABG Sodium ABG Potassium ABG Chloride ABG Glucose Oxyhemoglobin Carboxyhemoglobin Sodium Potassium Chloride 108.6 H Carbon Dioxide BUN 27 H Creatinine Glucose 133 H POC Glucose 115 H Lactic Acid Calcium Ferritin AST ALT Lactate Dehydrogenase C-Reactive Protein Total Protein 5.3 L Albumin 2.3 L Triglycerides 185 H Arterial Blood Glucose Arterial Blood Ionized Calcium Urine Creatinine Urine Total Protein Vancomycin Trough Coronavirus (PCR) SARS-CoV-2 IgG Ab 08/10/20 08/10/20 08/10/20 05:45 18:12 19:30 WBC RBC Hgb Hct MCH MCHC RDW Plt Count Lymph % (Auto) Lymph # (Auto) Seg Neutrophils % Seg Neuts % (Manual) Lymphocytes % (Manual) Eosinophils % (Manual) Nucleated RBC % Seg Neutrophils # Seg Neutrophils # Man Lymphocytes # (Manual) Eosinophils # (Manual) PT INR D-Dimer Heparin Anti-Xa Level ABG pH 7.152 L* POC ABG pCO2 51.3 H POC ABG pO2 ABG pO2 50.5 L ABG HCO3 27.6 H ABG O2 Saturation 77.7 L ABG Base Excess -2.3 L ABG Hemoglobin 7.9 L 10.0 L ABG Oxyhemoglobin ABG Sodium ABG Potassium ABG Chloride 109.0 H ABG Glucose 141 H Oxyhemoglobin 75.1 L Carboxyhemoglobin Sodium Potassium Chloride Carbon Dioxide BUN Creatinine Glucose POC Glucose 125 H Lactic Acid Calcium Ferritin AST ALT Lactate Dehydrogenase C-Reactive Protein Total Protein Albumin Triglycerides Arterial Blood Glucose 141 H Arterial Blood Ionized Calcium 4.5 L Urine Creatinine Urine Total Protein Vancomycin Trough Coronavirus (PCR) SARS-CoV-2 IgG Ab 08/10/20 08/11/20 08/11/20 23:29 03:50 05:29 WBC RBC Hgb Hct MCH MCHC RDW Plt Count Lymph % (Auto) Lymph # (Auto) Seg Neutrophils % Seg Neuts % (Manual) Lymphocytes % (Manual) Eosinophils % (Manual) Nucleated RBC % Seg Neutrophils # Seg Neutrophils # Man Lymphocytes # (Manual) Eosinophils # (Manual) PT INR D-Dimer Heparin Anti-Xa Level ABG pH 7.189 L* POC ABG pCO2 POC ABG pO2 ABG pO2 59.2 L ABG HCO3 27.3 H ABG O2 Saturation 83.9 L ABG Base Excess ABG Hemoglobin 6.6 L ABG Oxyhemoglobin ABG Sodium ABG Potassium ABG Chloride ABG Glucose Oxyhemoglobin 81.0 L Carboxyhemoglobin Sodium Potassium Chloride Carbon Dioxide BUN Creatinine Glucose POC Glucose 116 H 112 H Lactic Acid Calcium Ferritin AST ALT Lactate Dehydrogenase C-Reactive Protein Total Protein Albumin Triglycerides Arterial Blood Glucose Arterial Blood Ionized Calcium Urine Creatinine Urine Total Protein Vancomycin Trough Coronavirus (PCR) SARS-CoV-2 IgG Ab 08/11/20 08/11/20 08/11/20 06:45 06:45 08:50 WBC RBC Hgb 8.2 L Hct 26.9 L MCH MCHC RDW Plt Count Lymph % (Auto) Lymph # (Auto) Seg Neutrophils % Seg Neuts % (Manual) Lymphocytes % (Manual) Eosinophils % (Manual) Nucleated RBC % Seg Neutrophils # Seg Neutrophils # Man Lymphocytes # (Manual) Eosinophils # (Manual) PT INR D-Dimer Heparin Anti-Xa Level 0.28 L ABG pH POC ABG pCO2 POC ABG pO2 ABG pO2 ABG HCO3 ABG O2 Saturation ABG Base Excess ABG Hemoglobin ABG Oxyhemoglobin ABG Sodium ABG Potassium ABG Chloride ABG Glucose Oxyhemoglobin Carboxyhemoglobin Sodium 147 H Potassium Chloride 109.5 H Carbon Dioxide BUN 30 H Creatinine Glucose 145 H POC Glucose Lactic Acid Calcium Ferritin AST ALT Lactate Dehydrogenase C-Reactive Protein Total Protein 5.6 L Albumin 2.4 L Triglycerides Arterial Blood Glucose Arterial Blood Ionized Calcium Urine Creatinine Urine Total Protein Vancomycin Trough Coronavirus (PCR) SARS-CoV-2 IgG Ab 08/11/20 08/11/20 08/11/20 11:56 17:45 17:50 WBC RBC Hgb Hct MCH MCHC RDW Plt Count Lymph % (Auto) Lymph # (Auto) Seg Neutrophils % Seg Neuts % (Manual) Lymphocytes % (Manual) Eosinophils % (Manual) Nucleated RBC % Seg Neutrophils # Seg Neutrophils # Man Lymphocytes # (Manual) Eosinophils # (Manual) PT INR D-Dimer Heparin Anti-Xa Level 0.72 H ABG pH POC ABG pCO2 POC ABG pO2 ABG pO2 ABG HCO3 ABG O2 Saturation ABG Base Excess ABG Hemoglobin ABG Oxyhemoglobin ABG Sodium ABG Potassium ABG Chloride ABG Glucose Oxyhemoglobin Carboxyhemoglobin Sodium Potassium Chloride Carbon Dioxide BUN Creatinine Glucose POC Glucose 108 H 119 H Lactic Acid Calcium Ferritin AST ALT Lactate Dehydrogenase C-Reactive Protein Total Protein Albumin Triglycerides Arterial Blood Glucose Arterial Blood Ionized Calcium Urine Creatinine Urine Total Protein Vancomycin Trough Coronavirus (PCR) SARS-CoV-2 IgG Ab 08/11/20 08/12/20 08/12/20 23:58 03:10 04:58 WBC RBC Hgb Hct MCH MCHC RDW Plt Count Lymph % (Auto) Lymph # (Auto) Seg Neutrophils % Seg Neuts % (Manual) Lymphocytes % (Manual) Eosinophils % (Manual) Nucleated RBC % Seg Neutrophils # Seg Neutrophils # Man Lymphocytes # (Manual) Eosinophils # (Manual) PT INR D-Dimer Heparin Anti-Xa Level 1.27 H ABG pH 7.135 L* POC ABG pCO2 POC ABG pO2 ABG pO2 70.2 L ABG HCO3 ABG O2 Saturation 91.6 L ABG Base Excess -3.8 L ABG Hemoglobin 7.8 L ABG Oxyhemoglobin ABG Sodium ABG Potassium ABG Chloride ABG Glucose Oxyhemoglobin 88.3 L Carboxyhemoglobin Sodium Potassium Chloride Carbon Dioxide BUN Creatinine Glucose POC Glucose 149 H Lactic Acid Calcium Ferritin AST ALT Lactate Dehydrogenase C-Reactive Protein Total Protein Albumin Triglycerides Arterial Blood Glucose Arterial Blood Ionized Calcium Urine Creatinine Urine Total Protein Vancomycin Trough Coronavirus (PCR) SARS-CoV-2 IgG Ab 08/12/20 08/12/20 08/12/20 05:20 09:56 11:27 WBC RBC Hgb Hct MCH MCHC RDW Plt Count Lymph % (Auto) Lymph # (Auto) Seg Neutrophils % Seg Neuts % (Manual) Lymphocytes % (Manual) Eosinophils % (Manual) Nucleated RBC % Seg Neutrophils # Seg Neutrophils # Man Lymphocytes # (Manual) Eosinophils # (Manual) PT INR D-Dimer Heparin Anti-Xa Level < 0.10 L ABG pH POC ABG pCO2 POC ABG pO2 ABG pO2 ABG HCO3 ABG O2 Saturation ABG Base Excess ABG Hemoglobin ABG Oxyhemoglobin ABG Sodium ABG Potassium ABG Chloride ABG Glucose Oxyhemoglobin Carboxyhemoglobin Sodium Potassium Chloride Carbon Dioxide BUN Creatinine Glucose POC Glucose 147 H 117 H Lactic Acid Calcium Ferritin AST ALT Lactate Dehydrogenase C-Reactive Protein Total Protein Albumin Triglycerides Arterial Blood Glucose Arterial Blood Ionized Calcium Urine Creatinine Urine Total Protein Vancomycin Trough Coronavirus (PCR) SARS-CoV-2 IgG Ab Chest x-ray: image reviewed (new ETT in good position) Allied health notes reviewed: nursing
--- NOTE | 2020-08-12 13:17 | Progress Note ---
Assessment and Plan 50 yo F with 1. b/l PTX with subcutaneous emphysema s/p bilateral chest tubes 2. COVID PNA 3. VDRF 4. Septic shock Pt unstable. Fio2 100%, PEEP 20. Air leak from ETT with no improvement after ETT exchange, and continuous cricoid pressure held. 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 chest tubes in place Plan: 1. Maintain all chest tubes @ -[id number] suction via pleurevac. Would not advise removing. 2. vent management per ICU team 3. Pt with acute respiratory decompensation without improvement despite all appropriate interventions. I do not feel that tracheostomy will help at this time, patient has no reserve to tolerate prolonged procedure on airway. Poor prognosis. D/W Dr. Tipton. Family discussion ongoing. Thank you, please call with any questions or concerns. Evaluation and treatment of this patient was during the time of the national and state emergency arising from COVID19 coronavirus pandemic. Treatment and procedures performed meet the current and available best practice and guidelines for patient during the COVID pandemic. Subjective Date of service: 08/12/20 Narrative: Pt seen and limited exam performed due to COVID 19 pandemic. Patient with acute desaturation early this am with leak noted from ETT. Objective Vital Signs - 12hr 08/12/20 08/12/20 08/12/20 01:16 01:30 01:46 Temperature Pulse Rate 85 86 87 Pulse Rate [ From Monitor] Pulse Rate [ Right Radial] Respiratory 21 26 H 17 Rate Blood Pressure 116/56 117/62 115/55 O2 Sat by Pulse 95 95 95 Oximetry 08/12/20 08/12/20 08/12/20 02:00 02:16 02:30 Temperature Pulse Rate 88 89 91 H Pulse Rate [ From Monitor] Pulse Rate [ Right Radial] Respiratory 14 19 16 Rate Blood Pressure 114/54 121/57 115/58 O2 Sat by Pulse 94 94 93 Oximetry 08/12/20 08/12/20 08/12/20 02:46 03:00 03:16 Temperature Pulse Rate 92 H 92 H 94 H Pulse Rate [ From Monitor] Pulse Rate [ Right Radial] Respiratory 16 14 16 Rate Blood Pressure 113/56 122/56 110/54 O2 Sat by Pulse 92 92 91 Oximetry 08/12/20 08/12/20 08/12/20 03:30 03:46 03:59 Temperature Pulse Rate 96 H 98 H 98 H Pulse Rate [ From Monitor] Pulse Rate [ Right Radial] Respiratory 12 20 Rate Blood Pressure 124/51 114/56 118/56 O2 Sat by Pulse 90 91 90 Oximetry 08/12/20 08/12/20 08/12/20 04:00 04:16 04:30 Temperature 96.6 F L Pulse Rate 98 H 99 H 100 H Pulse Rate [ 108 H From Monitor] Pulse Rate [ 108 H Right Radial] Respiratory 24 18 16 Rate Blood Pressure 118/56 112/53 103/49 O2 Sat by Pulse 92 89 88 Oximetry 08/12/20 08/12/20 08/12/20 04:46 05:00 05:16 Temperature Pulse Rate 101 H 103 H 104 H Pulse Rate [ From Monitor] Pulse Rate [ Right Radial] Respiratory 18 21 26 H Rate Blood Pressure 113/47 105/48 106/48 O2 Sat by Pulse 88 86 85 Oximetry 08/12/20 08/12/20 08/12/20 05:30 05:46 06:00 Temperature Pulse Rate 102 H 102 H 106 H Pulse Rate [ From Monitor] Pulse Rate [ Right Radial] Respiratory 17 19 21 Rate Blood Pressure 106/48 91/43 94/49 O2 Sat by Pulse 85 85 84 Oximetry 08/12/20 08/12/20 08/12/20 06:16 06:30 06:46 Temperature Pulse Rate 108 H 110 H 112 H Pulse Rate [ From Monitor] Pulse Rate [ Right Radial] Respiratory 17 16 26 H Rate Blood Pressure 96/54 100/49 105/48 O2 Sat by Pulse 83 L 80 L 76 L Oximetry 08/12/20 08/12/20 08/12/20 07:00 07:16 07:30 Temperature Pulse Rate 113 H 117 H 117 H Pulse Rate [ From Monitor] Pulse Rate [ Right Radial] Respiratory 18 24 13 Rate Blood Pressure 99/53 103/51 98/51 O2 Sat by Pulse 73 L 72 L 71 L Oximetry 08/12/20 08/12/20 08/12/20 07:46 08:00 08:16 Temperature 98.0 F Pulse Rate 119 H 121 H 124 H Pulse Rate [ 130 H From Monitor] Pulse Rate [ 130 H Right Radial] Respiratory 27 H 19 22 Rate Blood Pressure 112/58 114/59 109/58 O2 Sat by Pulse 71 L 73 L 73 L Oximetry 08/12/20 08/12/20 08/12/20 08:30 08:46 09:00 Temperature Pulse Rate 130 H 136 H 138 H Pulse Rate [ From Monitor] Pulse Rate [ Right Radial] Respiratory 24 29 H 29 H Rate Blood Pressure 107/59 107/59 120/75 O2 Sat by Pulse 76 L 78 L 75 L Oximetry 08/12/20 08/12/20 09:16 09:30 Temperature Pulse Rate 135 H 135 H Pulse Rate [ From Monitor] Pulse Rate [ Right Radial] Respiratory 30 H 21 Rate Blood Pressure 120/75 112/68 O2 Sat by Pulse 74 L 74 L Oximetry - General physical appearance Narrative Exam: Gen: Intubated CV: s1, S2+ Resp: on vent. R chest tubex2. Chest tube 1 with continuous air leak. Chest tube 2 - no air leak. L chest tube in place. - Labs 08/11/20 06:45 08/11/20 06:45
[2020-08-12] MEDS ORDERED: EPINEPHrine 1 MG/10 ML SYRINGE ONE (13:36)
[2020-08-12] MEDS ORDERED: SODIUM BICARB 8.4% 50 MEQ/50 ML SYRINGE IV ONE (13:36)
[2020-08-12 14:23] LABS: ABG PCO2 TNR mm Hg; ABG PH TNR pH Units (7.350-7.450); ABG PO2 TNR mm Hg (80.0-90.0)
[2020-08-12 14:24] LABS: ABG Base Excess TNR mmol/L (-2.0-3.0); ABG HCO3 TNR mmol/L (20.0-26.0); ABG Methemoglobin TNR % (0.0-1.5); ABG Oxygen Saturation TNR % (95.0-99.0)
--- NOTE | 2020-08-12 14:25 | Progress Note ---
Assessment and Plan Cultures: Blood cultures 07/07/2020 no growth SARS COV2- IgG negative Sputum culture 07/08/2020 usual respiratory kerwin Blood culture 07/11/2020 no growth Blood culture 07/19/2020 no growth Tracheal aspirate 07/30/2020 MRSA and E. coli Blood cultures 08/03/2020 no growth Blood culture 08/03/2020 no growth today A/P: 50-year-old female with CHF, asthma, hypertension, lupus was admitted to the hospital with complaints of fever, shortness of breath. Of note, she was seen last week due to an asthma exacerbation when her SARS-CoV-2 PCR and IgG were both negative. She was treated with steroids. She reportedly then went to [facility] and tested positive for COVID-19 and was discharged from the hospital on 07/05/2020: #Sepsis with septic shock: remains tachycardic, hypothermic. Repeat blood cultures negative. Urinalysis negative. Source VAP +/- sinusitis. procal 119-->1.3, CRP 49-->26. #Critical airways instability: Patient receiving ongoing manual cricoid pressure, despite reintubation with a larger ET tube. Large ETT cuff leak ? Tracheomalacia. #Acute hypoxic respiratory failure: Remains intubated, likely secondary to VAP and bilateral pneumothorax. Worsening. #Bilateral pneumothorax: Status post bilateral chest tube, surgery on board #VAP: Secondary to MRSA and E. coli. Chest x-ray not especially concerning, however worsening pulmonary status with associated fevers. Procalcitonin massively elevated even in the setting of acute renal injury. #Critical Covid pneumonia: Completed remdesivir, IV steroids. #Lupus: On Plaquenil. #CHF #Asthma #MAHOGANY: Possible in setting of vancomycin, resolved Recs: -Very grave condition secondary to airway instability -Monitor off antibiotics. Completed ceftriaxone and vancomycin 10 days course on 08/03/2020 -Grim prognosis Family aware per rail equipment operator Eneida Quiñones MD [facility] ([facility]) Office [phone] Subjective Date of service: 08/12/20 Principal diagnosis: Ac hypoxemic resp failure; PNA; COVID-19 infxn; SLE; Asthma exacerbation Interval history: Patient is critically ill, remains intubated after self extubation yesterday. Patient is receiving continues cricoidal pressure as she has had a large ETT cuff leak, noted tachycardic on monitor, noted hypothermic. Objective - Exam Narrative Exam: General appearance: Sedated intubated Eyes: anicteric sclerae, moist conjunctivae; no lid-lag; PERRLA HENT: Normocephalic, Atraumatic; normal external ears, nares +NGT w purulence, oropharynx limited endotracheal tube in place Neck: supple, tracheal manual pressure by RT ongoing Lungs: Bilateral scattered crackles, bilateral chest tubes, chest tubes x2 on the right CV: Tachycardic Abdomen: Soft, non-tender; no masses or hepatosplenomegaly Extremities: Bilateral leg edema Skin: Bilateral neck and chest subcutaneous emphysema Psych: Sedated Neuro: Sedated - Constitutional Vitals: Vital Signs Temp Pulse Resp BP Pulse Ox 98.0 F 135 H 21 112/68 74 L 08/12/20 08:00 08/12/20 09:30 08/12/20 09:30 08/12/20 09:30 08/12/20 09:30 Temperature -Last 24 Hours Temperature 98.0 F Temperature 96.6 F Temperature 93.9 F Temperature 95.8 F Temperature 97.0 F - Labs CBC & Chem 7: 08/11/20 06:45 08/11/20 06:45 Labs: Abnormal lab results 08/11/20 08/11/20 08/11/20 Range/Units 17:45 17:50 23:58 Heparin Anti-Xa Level 0.72 H (0.3-0.7) U.I./ml ABG pH (7.350-7.450) pH Units ABG pO2 (80.0-90.0) mm Hg ABG O2 Saturation (95.0-99.0) % ABG Base Excess (-2.0-3.0) mmol/L ABG Hemoglobin (12.0-16.0) gm/dl Oxyhemoglobin (95.0-99.0) % POC Glucose 119 H 149 H (70-105) mg/dL 08/12/20 08/12/20 08/12/20 Range/Units 03:10 04:58 05:20 Heparin Anti-Xa Level 1.27 H (0.3-0.7) U.I./ml ABG pH 7.135 L* (7.350-7.450) pH Units ABG pO2 70.2 L (80.0-90.0) mm Hg ABG O2 Saturation 91.6 L (95.0-99.0) % ABG Base Excess -3.8 L (-2.0-3.0) mmol/L ABG Hemoglobin 7.8 L (12.0-16.0) gm/dl Oxyhemoglobin 88.3 L (95.0-99.0) % POC Glucose 147 H (70-105) mg/dL 08/12/20 08/12/20 Range/Units 09:56 11:27 Heparin Anti-Xa Level < 0.10 L (0.3-0.7) U.I./ml ABG pH (7.350-7.450) pH Units ABG pO2 (80.0-90.0) mm Hg ABG O2 Saturation (95.0-99.0) % ABG Base Excess (-2.0-3.0) mmol/L ABG Hemoglobin (12.0-16.0) gm/dl Oxyhemoglobin (95.0-99.0) % POC Glucose 117 H (70-105) mg/dL
--- NOTE | 2020-08-12 14:55 | Death Summary ---
Summary - Providers Date of service: 08/12/20 Consults: 07/06/20 13:44 Consult to Physician [CONS] Routine Comment: Consulting Provider: BRIE ARAUZ Physician Instructions: Reason For Exam: COVID-19 07/08/20 13:00 Consult to Physician [CONS] Stat Comment: Consulting Provider: HARJEET BARTLETT Physician Instructions: Reason For Exam: resp distress 07/08/20 13:16 Consult to Dietitian/Nutrition [CONS] Routine Physician Instructions: Reason For Exam: Reason for Consult: Evaluate nutritional intake 07/08/20 14:34 Consult to Dietitian/Nutrition [CONS] Routine Physician Instructions: Reason For Exam: Reason for Consult: Write/Manage Tube Feeding 07/08/20 15:42 PICC Line Insertion [Consult to PICC Line RN] [CONS] Urgent Reason For Exam: Hypotension; Sepsis Type Line:: PICC 07/27/20 04:48 Consult to Dietitian/Nutrition [CONS] Routine Physician Instructions: Reason For Exam: Reason for Consult: Write/Manage Tube Feeding 07/30/20 12:56 Consult to Physician [CONS] Routine Comment: called office/ darian Consulting Provider: BRIE ARAUZ Physician Instructions: Reason For Exam: pneumonia (? HAP); hypotension; sepsis 07/31/20 08:26 Consult to Physician [CONS] Urgent Comment: Consulting Provider: DEBBIE HERNANDEZ Physician Instructions: Reason For Exam: MAHOGANY 08/03/20 13:54 Consult to Physician [CONS] Routine Comment: Consulting Provider: JACOBO COOPER Physician Instructions: Reason For Exam: Right Pneumothorax 08/12/20 06:14 Consult to Anesthesiology [CONS] Urgent Consulting Provider: [facility] Reason For Exam: ET tube pLacement Attending: LINDA PALM - summary Date of admission: 07/06/20 08:49 Date of : 08/12/20 (13:38) - Final diagnosis (1) Acute respiratory failure with hypoxia Note: Final diagnosis: (2) Pneumonia due to COVID-19 virus Note: Final diagnosis: (3) Severe sepsis Note: Final diagnosis: (4) Bilateral pneumothoraces Note: Final diagnosis:
--- NOTE | 2020-08-12 15:29 | Event Note ---
Date: 08/12/20 A RNADOLPH MG was called. I reported to the bedside and the patient was found to be in asystole. Patient treated in accordance with ACLS protocol with return of perfusing cardiac rhythm. Shortly after departing from the room another CODE SAURAV was called. I returned to the room and the patient was again treated" with ACLS protocol. The patient was found to be in asystole. Patient pupils were fixed and dilated. Breath sounds were absent. The patient lacked spontaneous respirations. The patient was pronounced at 1338 hrs. 6 5 minutes critical care time dedicated to patient care. Patient family notified.
[2020-08-12 19:50] VITALS: BP 51/23
== END 2020-08-12 13:38 | DRG 870 ==
LOC: ED 04:22 → 3A 08:49 → OBSVTOIN 08:49 → 3A 09:07 → CC1 07-08 12:51
PROVIDERS: ADMIT Internal Medicine; ATTEND Internal Medicine
PROC: 5A09357 Assistance with Respiratory Ventilation, Less than 24 Consecutive Hours, Continuous Positive Airway Pressure (ICD-10-PCS; 2020-07-07)
PROC: 5A1955Z Respiratory Ventilation, Greater than 96 Consecutive Hours (ICD-10-PCS; principal; 2020-07-08)
PROC: 0BH17EZ Insertion of Endotracheal Airway into Trachea, Via Natural or Artificial Opening (ICD-10-PCS; 2020-07-08)
PROC: XW033E5 Introduction of Remdesivir Anti-infective into Peripheral Vein, Percutaneous Approach, New Technology Group 5 (ICD-10-PCS; 2020-07-08)
PROC: 02HV33Z Insertion of Infusion Device into Superior Vena Cava, Percutaneous Approach (ICD-10-PCS; 2020-07-18)
PROC: 0W9930Z Drainage of Right Pleural Cavity with Drainage Device, Percutaneous Approach (ICD-10-PCS; 2020-07-29)
PROC: 0W9B30Z Drainage of Left Pleural Cavity with Drainage Device, Percutaneous Approach (ICD-10-PCS; 2020-08-03)
PROC: 0W9930Z Drainage of Right Pleural Cavity with Drainage Device, Percutaneous Approach (ICD-10-PCS; 2020-08-03)
PROC: 4A033R1 Measurement of Arterial Saturation, Peripheral, Percutaneous Approach (ICD-10-PCS; 2020-08-09)
DX: A41.89 Other specified sepsis (principal); U07.1 COVID-19; J12.89 Other viral pneumonia; R65.21 Severe sepsis with septic shock; J80 Acute respiratory distress syndrome; J15.212 Pneumonia due to Methicillin resistant Staphylococcus aureus; J45.901 Unspecified asthma with (acute) exacerbation; J93.9 Pneumothorax, unspecified; N17.9 Acute kidney failure, unspecified; J95.851 Ventilator associated pneumonia; Z68.41 Body mass index [BMI] 40.0-44.9, adult; M32.9 Systemic lupus erythematosus, unspecified; B96.20 Unspecified Escherichia coli [E. coli] as the cause of diseases classified elsewhere; I11.0 Hypertensive heart disease with heart failure; I50.9 Heart failure, unspecified; Z91.030 Bee allergy status; Z91.041 Radiographic dye allergy status; F17.200 Nicotine dependence, unspecified, uncomplicated; D64.9 Anemia, unspecified; K21.9 Gastro-esophageal reflux disease without esophagitis; J43.9 Emphysema, unspecified; D72.829 Elevated white blood cell count, unspecified; E66.01 Morbid (severe) obesity due to excess calories
CPT/HCPCS: 36415; 36600; 71045; 74018; 80048; 80053; 80202; 81001; 82140; 82570; 82728; 82803; 82805; 82962; 83615; 83735; 84100; 84145; 84156; 84300; 84478; 85007; 85014; 85018; 85025; 85027; 85049; 85379; 85520; 85610; 85730; 86140; 86850; 86900; 86901; 87040; 87070; 87076; 87086; 87116; 87186; 87205; 93005; 93306; 94002; 94003; 94640; 94644; 94660; 96365; 96372; 96375; G0378; C9113; J0171; J0461; J0692; J0696; J1100; J1265; J1644; J1650; J1815; J1885; J1940; J2250; J2370; J2405; J2704; J2765; J2920; J2930; J2997; J3010; J3370; J3475; J3480; J7030; J7040; P9017; U0003